=== PATIENT | female | born 1950 | race Hispanic/Latino ===

== ENCOUNTER 2016-06-03 21:29 | Inpatient (IN) | payer MEDICARE, BC ==
[2016-06-03 21:30] VITALS: BMI 18.2
[2016-06-03] MEDS ORDERED: Albuterol-Ipratrop 3 mg / 0.5 (3 ml) UD INH STA (22:09)
[2016-06-03 22:55] LABS: BASO % 0.1 % (0.0-2.0); HEMATOCRIT 36.3 % (34.0-47.0); LYMPH # 0.3 K/uL (1.0-4.3); LYMPH % 2.9 % (20.0-40.0); MEAN CELL VOLUME 67.1 fl (81.0-99.0); MEAN CORPUSCULAR HEMOGLOBIN 19.2 pg (27.0-31.0); MEAN CORPUSCULAR HGB CONC 28.6 g/dL (33.0-37.0); MEAN PLATELET VOLUME 8.4 fl (7.2-11.7); MONO # 0.6 K/uL (0.0-0.8); MONO % 5.8 % (0.0-10.0); NEUT # 9.7 K/uL (1.8-7.0); NEUT % 91.2 % (50.0-75.0); NRBC % 0.1 % (0.0-0.0); PLATELET COUNT 305 K/uL (130-400); RED CELL DISTRIBUTION WIDTH 23.4 % (11.5-14.5); WHITE BLOOD COUNT 10.6 K/uL (4.8-10.8)
[2016-06-03 23:01] LABS: MAGNESIUM 1.9 MG/DL (1.6-2.3)
[2016-06-03 23:02] LABS: ALKALINE PHOSPHATASE 132 U/L (38-126); ALT/SGPT 24 U/L (9-52); AST/SGOT 18 U/L (14-36); BILIRUBIN,TOTAL 0.7 mg/dl (0.2-1.3); BLOOD UREA NITROGEN 10 mg/dl (7-17); CALCIUM 7.7 mg/dL (8.4-10.2); CARBON DIOXIDE 34 mmol/L (22-30); CHLORIDE 84 mmol/L (98-107); GFR AFRICAN-AMERICAN > 60; GLUCOSE,RANDOM 99 mg/dL (65-105); LIPASE 53 U/L (23-300); POTASSIUM 2.9 MMOL/L (3.6-5.0); SODIUM 130 mmol/l (132-148); TOTAL PROTEIN 5.4 G/DL (6.3-8.2)
[2016-06-03 23:03] LABS: PARTIAL THROMBOPLASTIN TIME 27.5 SECONDS (23.3-32.5)
[2016-06-03 23:19] LABS: NEUTROPHIL 89 % (42-75); TOTAL CELLS COUNTED 100
[2016-06-03 23:32] LABS: THYROID STIMULATING HORMONE 24.4 mIU/ML (0.46-4.68)
--- NOTE | 2016-06-03 23:50 | ED PDOC ---
HPI: General Adult Time Seen by Provider: 06/03/16 21:47 Chief Complaint (Nursing): Weakness/Neurological Deficit Chief Complaint (Provider): Leg swelling History Per: Patient History/Exam Limitations: no limitations Onset/Duration Of Symptoms: Persistent Current Symptoms Are (Timing): Still Present Severity: Moderate Additional Complaint(s): Michelle Hanson is a 66 y/o female presenting to the ER on 06/03/2016 with complaints of bilateral leg swelling x1 week. Patient notes she has had no similar episodes in the past. She reports associated symptoms including abdominal fullness, chronic coughing (secondary to COPD), slight episodes of SOB , nausea, and two episodes of diarrhea. However, she denies any chest pain, palpitations, headache, dizziness, or fevers. Of note, the patient notes she has been having a tooth/gum abscess x1 month and is currently following up with her doctors for surgical repair. She is currently taking ciprofloxacin for prophylactic treatment. Patient also has a past medical history of breast cancer x2, and has been on chemotherapy and radiation 8 years ago. Additionally, she has had bone metastasis with a shoulder and humorous resection. Patient has not relapsed into remission since. Collections Curator/PMD- Drocas Costello Past Medical History Reviewed: Historical Data, Nursing Documentation, Vital Signs Vital Signs: Last Vital Signs Temp 99.1 F 06/03/16 21:32 Pulse 123 H 06/03/16 23:58 Resp 18 06/03/16 23:58 BP 120/70 06/04/16 00:30 Pulse Ox 99 06/04/16 01:25 - Medical History PMH: Asthma, COPD, Fractures, Gall Bladder Disease, HTN, Hyperthyroidism, Hypothyroidism, Malignancy (breast CA), Pneumonia Denies: HIV, Chronic Kidney Disease - Surgical History Other surgeries: heart catheterization x1 year secondary to angina symptoms. Catheter results tested negative. - Family History Family History: States: Unknown Family Hx - Home Medications Home Medications: Ambulatory Orders Medication Instructions Recorded Anastrozole [Arimidex 1 mg Tab] 1 mg PO DAILY #0 tab 05/07/15 Gabapentin [Neurontin] 600 mg PO TID #0 tab 05/07/15 Tiotropium [Spiriva] 18 mcg IH DAILY #0 cap 05/07/15 Verapamil [Calan Tab] 80 mg PO TID #0 tab 05/07/15 Acetaminophen/Butalbital/Caf 1 tab PO Q8H PRN 06/26/15 [Fioricet] Albuterol Sulfate [Proair Hfa] 2 puff IH Q4H PRN 06/26/15 Albuterol/Ipratropium [Duoneb 3 3 ml IH TID PRN 06/26/15 mg/0.5 mg (3 ml) UD] Diclofenac Sodium [Voltaren] 1 appl TOP BID PRN 06/26/15 DiphenhydrAMINE [Benadryl] 50 mg PO HS 06/26/15 Fluticasone/Vilanterol [Breo 1 puff IH DAILY 06/26/15 Ellipta 200-25 Mcg INH] Multivitamin/Iron/Folic Acid 1 tab PO DAILY 06/26/15 [Centrum Complete Multivit Tab] Omeprazole [Omeprazole] 40 mg PO DAILY 06/26/15 Oxycodone HCl/Acetaminophen 1 tab PO Q6H PRN 06/26/15 [Percocet 10-325 mg Tablet] Theophylline [Maximiliano-Dur] 200 mg PO Q12H 06/26/15 predniSONE [predniSONE Tab] 5 mg PO TID 06/26/15 Aspirin [Adult Low Dose Aspirin EC] 81 mg PO DAILY #0 tablet. 07/08/15 Metoprolol Succinate XL [Toprol XL] 25 mg PO DAILY #0 tab 07/08/15 Nitroglycerin [Nitrolingual] 0.4 mg SL Q4 #0 ml 07/08/15 Cephalexin [cephalexin] 500 mg PO Q6 #28 cap 12/30/15 - Allergies Allergies/Adverse Reactions: Allergies Allergy/AdvReac Type Severity Reaction Status Date / Time paper tape Allergy RASH Uncoded 06/03/16 21:31 Physical Exam - Reviewed Nursing Documentation Reviewed: Yes Vital Signs Reviewed: Yes - Physical Exam Head Exam: Positive for: NORMAL INSPECTION (minimal swelling to right side of the face with no overlying erythema and no tenderness; pt can open and close her jaw normally ) Skin: Positive for: Normal Color, Warm ENT: Positive for: TM Is/Are (normal ), Other (swelling to the right face- chronic due to gum/tooth abscess- no tenderness or drainage, no overlying erythema or warmth ). Negative for: Pharyngeal Erythema, Tonsillar Swelling Neck: Positive for: Normal, Painless ROM Cardiovascular/Chest: Positive for: Regular Rate, Rhythm Respiratory: Positive for: Decreased Breath Sounds ((+) bases on both lungs ), Rales (questionable ), Wheezing (slight wheezing) Pulses-Dorsalis Pedis (L): 2+ Pulses-Dorsalis Pedis (R): 2+ Gastrointestinal/Abdominal: Positive for: Tenderness ((+) minimal epigastric tenderness ) Extremity: Positive for: Pedal Edema (1+ to 2+ pitting edema from feet to knees ; slight tenderness with deep palpation), Other (severe scabs on lower legs bilaterally (patient quotes 'everytime she hits something she gets a scab')). Negative for: Calf Tenderness - Laboratory Results Result Diagrams: 06/03/16 22:10 06/03/16 22:39 - ECG O2 Sat by Pulse Oximetry: 99 (RA) Pulse Ox Interpretation: Normal Medical Decision Making Medical Decision Makin:02 Initial Impression- 66 y/o female with complaints of bilateral leg swelling. R/ o CHF, R/o DVT Initial Plan- * EKG * CXR * Albuterol 3 ml INH * Urine Cx * Urinalysis * US Lower Extremity * Re-assess Pt is negative for DVT risk factors. Additional Orders: * urinary catheter * lasix 20 mg IVP * potassium chloride 40 meq PO * potassium Documented by Mauri Roman, acting as a scribe for Denzel Granado PA-C All medical record entries made by the Scribe were at my direction and personally dictated by me. I have reviewed the chart and agree that the record accurately reflects my personal performance of the history, physical exam, medical decision making, and the department course for this patient. I have also personally directed, reviewed, and agree with the discharge instructions and disposition. Labs with 2.9 K+. 10meq IV and 40 PO potassium ordered BNP 3200. lasix added, kimble ordered CXR: no pleural effusion, possible mild congestion TSH high 24 mild tachy on monitor at 112- could be secondary to duoneb. SaO2 98% ra. will continue to monitor US: IMPRESSION: No evidence for deep venous thrombosis in the visualized veins. discussed with patient in full detail. understands lab finding. Case discussed with Dr. Josefa Pimentel accepts patient to service and will be down for evaluation and orders. Disposition - Clinical Impression Clinical Impression: Hypokalemia, CHF (congestive heart failure) - Patient ED Disposition Is Patient to be Admitted: Yes Counseled Patient/Family Regarding: Studies Performed, Diagnosis - Disposition Disposition Time: 01:23 Condition: STABLE
--- NOTE | 2016-06-03 23:52 | US ---
EXAM: US Duplex Bilateral Lower Extremity Veins. CLINICAL HISTORY: 66 years old, female; Signs and symptoms; Swelling of limb; Lower extremity, bilateral; TECHNIQUE: Real-time ultrasound scan of the veins of the bilateral lower extremities with color Doppler flow, spectral waveform analysis and compression. COMPARISON: No relevant prior studies available. FINDINGS: Real-time imaging shows veins with normal compressibility. Doppler evaluation shows normal venous flow with respiratory variation and augmentation with distal compression. IMPRESSION: No evidence for deep venous thrombosis in the visualized veins.
[2016-06-04] MEDS ORDERED: Potassium Chloride 20 mEq ER Tab PO ONE ×3 (00:07→11:43)
[2016-06-04] MEDS ORDERED: Potassium CL 10mEq/100ml 100 ML IVPB ONE (00:07)
[2016-06-04] MEDS ORDERED: Potassium Chloride 10 mEq 100 ML IVPB ONE (00:09)
--- NOTE | 2016-06-04 00:38 | CP.PCM.HP ---
History of Present Illness - History of Present Illness History of Present Illness: CC: Shortness of Breath HPI: 66 y/o female PMH COPD, bilateral breast CA s/p chemo/rad 8 years ago with bone mets to shoulder (s/p humerus resection), HTN, hyperthyroidism presents today with a 2 week history of worsening bilateral lower extremity swelling and weakness. She has had a rapid decline in mobility according to the daughter. Over the past 2 weeks she is no longer able to get herself up to her walker, she is unable to get up from the toilet unassisted, and is ambulating with increasing difficulty. Pt has mild dyspnea at baseline. She has had no similar episodes in the past. She denies any chest pain, palpitations, headache, dizziness, or fevers. In the ER, BNP was elevated 3230, K was low at 2.9 and was repleted, Na mildly low 130. +kimble catheter. CXR pending. Troponin neg. The patient also notes she has an oral abscess x1 month and is currently following up with her doctors for surgical repair. She is currently taking ciprofloxacin for prophylactic treatment. LAST ECHO 06/2015 : MODERATE MR, NORMAL EF [employer]/PMD- Dorcas Luu / Dr. Benz ROS: per HPI all other systems reviewed and negative by me PMH: COPD, breast CA, HTN, hyperthyroidism PSH: bilateral mastectomies, total shoulder replacement + removal, cervical and lumbar spinal surgery, cholecystectomy, tubal ligation FH: extensive history of cancer in her immediate family including ovarion, colon , breast, pancreatic and lung cancer SH: Tobacco: half a pack of cigarettes per day x 40 years . EtOH: denies use. Drugs: denies use Medications: see med rec Allergies: NKDA Surrogate Decision Maker: Information in chart Present on Admission - Present on Admission Any Indicators Present on Admission: No Past Patient History - Infectious Disease Hx of Infectious Diseases: MRSA - Tetanus Immunizations Tetanus Immunization: Unknown - Past Medical History & Family History Past Medical History?: Yes - Past Social History Smoking Status: Heavy Smoker > 10 Cigarettes Daily - CARDIAC Hx Hypertension: Yes - PULMONARY Hx Asthma: Yes Hx Chronic Obstructive Pulmonary Disease (COPD): Yes Hx Pneumonia: Yes - NEUROLOGICAL Hx Neurological Disorder: Yes Other/Comment: Peripheral neuropathy RLE - HEENT Hx HEENT Problems: No - RENAL Hx Chronic Kidney Disease: No - ENDOCRINE/METABOLIC Hx Hyperthyroidism: Yes Hx Hypothyroidism: Yes - HEMATOLOGICAL/ONCOLOGICAL Hx Human Immunodeficiency Virus (HIV): No - INTEGUMENTARY Hx Dermatological Problems: No - MUSCULOSKELETAL/RHEUMATOLOGICAL Hx Fractures: Yes - GASTROINTESTINAL Hx Gall Bladder Disease: Yes - GENITOURINARY/GYNECOLOGICAL Hx Genitourinary Disorders: No - PSYCHIATRIC Hx Psychophysiologic Disorder: No Hx Substance Use: No - SURGICAL HISTORY Hx Surgeries: Yes Hx Mastectomy: Yes (right in 1998; left in 2008) Hx Orthopedic Surgery: Yes (2003 rigtht shoulder prosthesis, removal of hardware 2013) Hx Tubal Ligation: Yes Other/Comment: shoulder and humerous replacement with joint space infection and eventual removal of hardware in right shoulder and chronic lymphedema of RUE, groin cyst removal, cervical spinal fusion 2007, lumbar spinal fusion 2007. - ANESTHESIA Hx Anesthesia: Yes Hx Anesthesia Reactions: No Hx Malignant Hyperthermia: No Meds Allergies/Adverse Reactions: Allergies Allergy/AdvReac Type Severity Reaction Status Date / Time paper tape Allergy RASH Uncoded 06/03/16 21:31 Physical Exam - Constitutional Appears: Non-toxic, No Acute Distress - Head Exam Head Exam: ATRAUMATIC, NORMOCEPHALIC - Eye Exam Eye Exam: EOMI, Normal appearance, PERRL Pupil Exam: NORMAL ACCOMODATION, PERRL - ENT Exam ENT Exam: Mucous Membranes Moist, Normal Exam - Neck Exam Neck exam: Positive for: Normal Inspection. Negative for: Lymphadenopathy - Respiratory Exam Respiratory Exam: Decreased Breath Sounds, Rales, NORMAL BREATHING PATTERN. absent: Rhonchi, Wheezes - Cardiovascular Exam Cardiovascular Exam: RRR, +S1, +S2 - GI/Abdominal Exam GI & Abdominal Exam: Normal Bowel Sounds, Soft. absent: Mass, Organomegaly - Extremities Exam Extremities exam: Positive for: normal capillary refill. Negative for: calf tenderness - Back Exam Back exam: absent: CVA tenderness (L), CVA tenderness (R) - Neurological Exam Neurological exam: Alert, Reflexes Normal - Psychiatric Exam Psychiatric exam: Normal Affect, Normal Mood - Skin Skin Exam: Dry, Warm Results - Vital Signs Recent Vital Signs: Last Vital Signs Temp 99.1 F 06/03/16 21:32 Pulse 123 H 06/03/16 23:58 Resp 18 06/03/16 23:58 BP 124/71 06/03/16 23:58 Pulse Ox 99 06/04/16 00:05 - Labs Result Diagrams: 06/03/16 22:10 01/26/17 22:39 Labs: Laboratory Results - last 24 hr 06/03/16 06/03/16 06/03/16 22:10 22:33 22:39 WBC 10.6 RBC 5.42 H Hgb 10.4 L Hct 36.3 MCV 67.1 L D MCH 19.2 L MCHC 28.6 L RDW 23.4 H Plt Count 305 MPV 8.4 Neut % (Auto) 91.2 H Lymph % (Auto) 2.9 L [place] % (Auto) 5.8 Eos % (Auto) 0.0 Baso % (Auto) 0.1 Neut # 9.7 H Lymph # 0.3 L [place] # 0.6 Eos # 0.0 Baso # 0.0 Neutrophils % (Manual) 89 H Band Neutrophils % 2 Lymphocytes % (Manual) 3 L Monocytes % (Manual) 6 Platelet Estimate Normal Hypochromasia (manual) Moderate Poikilocytosis (manual Slight Anisocytosis (manual) Moderate Macrocytosis (manual) Moderate PT 11.0 INR 1.06 APTT 27.5 Sodium 130 L Potassium 2.9 L Chloride 84 L Carbon Dioxide 34 H Anion Gap 15 BUN 10 Creatinine 0.5 L Est GFR ( Amer) > 60 Est GFR (Non-Af Amer) > 60 Random Glucose 99 Calcium 7.7 L Magnesium Total Bilirubin 0.7 AST 18 ALT 24 Alkaline Phosphatase 132 H D Troponin I 0.0170 NT-Pro-B Natriuret Pep 3230 H Total Protein 5.4 L Albumin 2.7 L Globulin 2.7 Albumin/Globulin Ratio 1.0 Lipase 53 TSH 3rd Generation 06/03/16 22:44 WBC RBC Hgb Hct MCV MCH MCHC RDW Plt Count MPV Neut % (Auto) Lymph % (Auto) [place] % (Auto) Eos % (Auto) Baso % (Auto) Neut # Lymph # [place] # Eos # Baso # Neutrophils % (Manual) Band Neutrophils % Lymphocytes % (Manual) Monocytes % (Manual) Platelet Estimate Hypochromasia (manual) Poikilocytosis (manual Anisocytosis (manual) Macrocytosis (manual) PT INR APTT Sodium Potassium Chloride Carbon Dioxide Anion Gap BUN Creatinine Est GFR ( Amer) Est GFR (Non-Af Amer) Random Glucose Calcium Magnesium 1.9 Total Bilirubin AST ALT Alkaline Phosphatase Troponin I NT-Pro-B Natriuret Pep Total Protein Albumin Globulin Albumin/Globulin Ratio Lipase TSH 3rd Generation 24.40 H Assessment & Plan - Assessment and Plan (Free Text) Plan: 66 y/o female PMH COPD, bilateral breast CA s/p chemo/rad 8 years ago with bone mets to shoulder (s/p humerus resection), HTN, hyperthyroidism presents today with a 1 week history of bilateral lower extremity swelling. Pt has mild dyspnea at baseline. She has had no similar episodes in the past. Bilateral LE edema and weakness given lasix 40 mg ivp in ER +Kimble cath last echo 06/2015 NORMAL EF, +MR cont lasix 40 mg IV q12 CXR pending PT eval and treat Hypokalemia acute K 2.9 in ER given 50 meq KCl in ER will repeat in AM COPD chronic stable cont Duonebs, throphylline cont prednisone 5mg po daily Hx breast ca, bilateral stable continue arimidex Hypertension cont metoprolol succ 12.5 mg po daily and verapamil 80 mg PO TID stable Oral Abscess? confirming antibiotics in AM has been following up as an outpatient Hyperthyroidism DVT ppx lovenox
[2016-06-04 01:08] LABS: RBC URINE 2 /hpf (0-3); URINE BILIRUBIN NEGATIVE (NEGATIVE); URINE BLOOD NEGATIVE (NEGATIVE); URINE COLOR YELLOW (YELLOW); URINE GLUCOSE (UA) NEG (Normal); URINE KETONE 20 mg/dL (NEGATIVE); URINE LEUKOCYTE ESTERASE NEG Leu/uL (Negative); URINE PROTEIN NEGATIVE (NEGATIVE); URINE UROBILINOGEN 0.2-1.0 mg/dL (0.2-1.0); WBC URINE 2 /hpf (0-5)
[2016-06-04] MEDS ORDERED: Albuterol-Ipratrop 3 mg / 0.5 (3 ml) UD IH PRN (01:20)
[2016-06-04] MEDS ORDERED: Patient's Own Med (Diclofenac Sodium [Voltaren] 1 APPL) TOP PRN (01:20)
[2016-06-04] MEDS ORDERED: Apap-Butalbital-Caffeine 325-50-40mg Tab PO PRN (01:20)
[2016-06-04] MEDS ORDERED: THEOPHYLLINE 200 MG PO SCH (01:30)
[2016-06-04] MEDS: Theophylline 200mg ER 24 hrs Cap PO SCH ×3 (01:55→22:02)
[2016-06-04 08:18] LABS: HEMATOCRIT 33.4 % (34.0-47.0); MEAN CELL VOLUME 66.2 fl (81.0-99.0); MEAN CORPUSCULAR HEMOGLOBIN 19.2 pg (27.0-31.0); MEAN CORPUSCULAR HGB CONC 29.1 g/dL (33.0-37.0); RED CELL DISTRIBUTION WIDTH 22.8 % (11.5-14.5); WHITE BLOOD COUNT 10.2 K/uL (4.8-10.8)
--- NOTE | 2016-06-04 08:25 | RAD ---
HISTORY: irregular breath sounds COMPARISON: Comparison is made to 07/02/2015 TECHNIQUE: Chest PA and lateral FINDINGS: LUNGS: No evidence of new infiltrate or consolidation in the lungs. Prominent lung markings and reticular opacity seen overlying the lower lobes slightly more conspicuous on the right. PLEURA: No significant pleural effusion identified. No pneumothorax apparent. CARDIOVASCULAR: Normal. OSSEOUS STRUCTURES: Surgical changes and resection of the proximal right humerus are again seen. Heterogeneous sclerotic changes in the right humeral shaft. Postsurgical changes suggestive of prior rotator cuff tear repair on the left shoulder. Internal fixation at the lower cervical spine are also seen. VISUALIZED UPPER ABDOMEN: Normal. OTHER FINDINGS: None. IMPRESSION: No evidence of significant interval change in the lungs since the previous exam as described above. Hyperinflation of the lungs. Correlate for COPD.
[2016-06-04 08:39] LABS: BLOOD UREA NITROGEN 8 mg/dl (7-17); CALCIUM 7.3 mg/dL (8.4-10.2); CARBON DIOXIDE 36 mmol/L (22-30); CHLORIDE 86 mmol/L (98-107); GFR AFRICAN-AMERICAN > 60; GLUCOSE,RANDOM 135 mg/dL (65-105); POTASSIUM 3.2 MMOL/L (3.6-5.0); SODIUM 127 mmol/l (132-148)
[2016-06-04] MEDS ORDERED: Patient's Own Med (Multivitamin/Iron/Folic Acid [Centrum Complete Multivit Tab] 1 TAB) PO SCH (09:00)
[2016-06-04] MEDS ORDERED: Patient's Own Med (Fluticasone/Vilanterol [Breo Ellipta 200-25 Mcg Inh] 1 PUFF) IH SCH (09:00)
--- NOTE | 2016-06-04 10:28 | CARD ---
APPROVED REPORT EKG Measurement Heart [id number] <Conclusion> Sinus tachycardia with premature atrial complexes Biatrial enlargement Left ventricular hypertrophy with repolarization abnormality Abnormal ECG
[2016-06-04] MEDS: Pantoprazole 40 mg EC Tab PO SCH (10:34)
[2016-06-04] MEDS: Multivitamin With Minerals Tab PO SCH (10:34)
[2016-06-04] MEDS: Enoxaparin 40 mg Syringe SC SCH (10:44)
[2016-06-04] MEDS: Metoprolol Succinate 25 mg XL Tab PO SCH (10:46)
[2016-06-04] MEDS: Fluticasone-Salmeterol 250-50mcg Diskus IH SCH ×2 (10:47→22:01)
[2016-06-04] MEDS ORDERED: Magnesium Oxide 400 mg Tab UD PO ONE (11:48)
[2016-06-04] MEDS: Clindamycin 300 MG in Sodium Chloride 0.9% 100 ML IVPB SCH ×2 (13:18→17:37)
--- NOTE | 2016-06-04 15:03 | CP.PCM.CON ---
History of Present Illness - History of Present Illness History of Present Illness: This 66-year-old female presented to the emergency department with the chief complaint of shortness of breath and productive cough. She has also noted increasing swelling and weakness of both lower extremities over a two-week period. She has developed profound weakness of the lower fremitus and has been unable to raise herself from a seated position. She has become progressively more short of breath during this period of time. She is unaware of any fever or chills and denies any chest pain. Has been no hemoptysis. She has been followed by a dentist and an oral surgeon because of an abscess which has developed in the right cheek and possibly involving the jaw. She was taking ciprofloxacin as an outpatient because of this. Past medical history includes chronic pulmonary disease, bronchial asthma, thyrotoxicosis on suppressant medication, breast carcinoma bilaterally, metastatic disease to the right humerus, cervical disc disease as well as lumbar disc disease, peripheral neuropathy right lower extremity, hiatus hernia. Past surgical history includes bilateral mastectomies as well as right shoulder arthroplasty and subsequent removal of the humeral prosthesis because of infection. Lumbar spinal fusion as well as cervical fusion 2007. Social history current light cigarette smoker. Social alcohol only. No illicit drug use. Family history: Breast cancer, ovarian cancer, pancreatic cancer, lung cancer, colon cancer, hypertension. Past Patient History - Infectious Disease Hx of Infectious Diseases: MRSA - Tetanus Immunizations Tetanus Immunization: Unknown - Past Medical History & Family History Past Medical History?: Yes - Past Social History Smoking Status: Current Some Days Smoker Chewing Tobacco Use: No Cigar Use: No Alcohol: Social Drugs: Denies - CARDIAC Hx Cardiac Disorders: Yes Hx Hypertension: Yes - PULMONARY Hx Respiratory Disorders: Yes Hx Asthma: Yes Hx Chronic Obstructive Pulmonary Disease (COPD): Yes Hx Pneumonia: Yes - NEUROLOGICAL Hx Neurological Disorder: Yes Other/Comment: peripheral neuropathy right lower extremity. - HEENT Hx HEENT Problems: Yes Other/Comment: recent right buccal abscess with possible involvement of the mandible - RENAL Hx Chronic Kidney Disease: No - ENDOCRINE/METABOLIC Hx Endocrine Disorders: Yes Hx Hyperthyroidism: Yes (on methimazole) - HEMATOLOGICAL/ONCOLOGICAL Hx Blood Disorders: Yes Hx Bruising: Yes Hx Human Immunodeficiency Virus (HIV): No - INTEGUMENTARY Hx Dermatological Problems: No - MUSCULOSKELETAL/RHEUMATOLOGICAL Hx Musculoskeletal Disorders: Yes (Multiple fractures) Hx Falls: Yes Hx Osteoporosis: Yes - GASTROINTESTINAL Hx Gastrointestinal Disorders: Yes Hx Gall Bladder Disease: Yes - GENITOURINARY/GYNECOLOGICAL Hx Genitourinary Disorders: No - PSYCHIATRIC Hx Psychophysiologic Disorder: No Hx Substance Use: No - SURGICAL HISTORY Hx Surgeries: Yes Hx Mastectomy: Yes (right in 1998; left in 2008) Hx Orthopedic Surgery: Yes (2003 rigtht shoulder prosthesis, removal of hardware 2013) Hx Tubal Ligation: Yes Other/Comment: shoulder and humerous replacement with joint space infection and eventual removal of hardware in right shoulder and chronic lymphedema of RUE, groin cyst removal, cervical spinal fusion 2007, lumbar spinal fusion 2007. - ANESTHESIA Hx Anesthesia: Yes Hx Anesthesia Reactions: No Hx Malignant Hyperthermia: No Meds Allergies/Adverse Reactions: Allergies Allergy/AdvReac Type Severity Reaction Status Date / Time paper tape Allergy RASH Uncoded 06/03/16 21:31 - Medications Medications: Current Medications Acetaminophen/Butalbital/Caffeine (Fioricet) 1 tab PO Q8H PRN PRN Reason: Headache Albuterol/Ipratropium (Duoneb 3 Mg/0.5 Mg (3 Ml) Ud) 3 ml IH TID PRN PRN Reason: Shortness of Breath Anastrozole (Arimidex 1 Mg Tab) 1 mg PO DAILY [facility] Last Admin: 06/04/16 10:48 Dose: 1 mg Aspirin (Ecotrin) 81 mg PO DAILY [facility] Last Admin: 06/04/16 10:35 Dose: 81 mg Baclofen (Lioresal) 10 mg PO HS [facility] Ciprofloxacin (Cipro) 500 mg PO Q12 [facility] Last Admin: 06/04/16 10:32 Dose: 500 mg Enoxaparin Sodium (Lovenox) 40 mg SC DAILY [facility] PRN Reason: Protocol Last Admin: 06/04/16 10:44 Dose: 40 mg Gabapentin (Neurontin) 600 mg PO TID [facility] Last Admin: 06/04/16 10:35 Dose: 600 mg Home Med (Diclofenac Sodium [Voltaren]) 1 appl TOP BID PRN PRN Reason: Pain, Mild (1-3) Clindamycin Phosphate 300 mg/ (Sodium Chloride) 102 mls @ 102 mls/hr IVPB Q8 [facility] Last Admin: 06/04/16 13:18 Dose: 102 mls/hr Lactobacillus Acidophilus (Bacid Acidophilus) 1 cap PO BID [facility] Metoprolol Succinate (Toprol Xl) 25 mg PO DAILY [facility] Last Admin: 06/04/16 10:46 Dose: 25 mg Multivitamins/Minerals (Therapeutic-M Tab) 1 tab PO DAILY [facility] Last Admin: 06/04/16 10:34 Dose: 1 tab Pantoprazole Sodium (Protonix Ec Tab) 40 mg PO DAILY [facility] Last Admin: 06/04/16 10:34 Dose: 40 mg Prednisone (Prednisone Tab) 5 mg PO TID [facility] Last Admin: 06/04/16 13:26 Dose: 5 mg Fluticasone/Salmeterol (Advair Diskus 250/50) 1 puff IH Q12 [facility] Last Admin: 06/04/16 10:47 Dose: 1 puff Theophylline (Maximiliano-24) 200 mg PO Q12 [facility] Last Admin: 06/04/16 10:33 Dose: 200 mg Verapamil HCl (Calan Tab) 80 mg PO TID [facility] Last Admin: 06/04/16 13:20 Dose: 80 mg Physical Exam - Additional Findings Additional findings: Chronically ill-appearing, debilitated female who claims to feel much improved from the day prior. Significant swelling with erythema and tenderness over the right buccal area extending to the periorbital region. Oropharynx is hyperemic and purulent secretions are noted to be emanating from a punctum on the right cheek. Neck is supple and trachea is midline. Unable to appreciate cervical adenopathy. Postsurgical changes of the anterior thorax are noted with bilateral mastectomies. Hyperresonance is noted bilaterally on percussion with both hemidiaphragms displaced caudally. Breath sounds are significantly diminished bilaterally. Scattered sonorous rhonchi are heard in the lower lobes of both lungs. Expiratory phases prolonged with some faint expiratory wheezes noted. No bronchial breathing or egophony. Heart sounds are slightly distant and the rhythm is regular. Mildly tachycardic. Abdomen is soft and nontender with normal bowel sounds. 1-2+ dependent edema both lower extremities is noted without cyanosis or ecchymosis. No calf tenderness. Results - Vital Signs Recent Vital Signs: Last Vital Signs Temp 97.9 F 06/04/16 12:51 Pulse 120 H 06/04/16 13:20 Resp 18 06/04/16 12:51 BP 107/64 06/04/16 13:20 Pulse Ox 94 L 06/04/16 12:51 - Labs Result Diagrams: 06/05/16 05:30 06/05/16 05:30 Assessment & Plan (1) Acute bronchitis with chronic obstructive pulmonary disease (COPD) Status: Acute Priority: High (2) Hyperthyroidism Status: Chronic Priority: High (3) Abscess Status: Acute Priority: High - Assessment and Plan (Free Text) Plan: Infectious disease has been contacted regarding treatment of severe buccal abscess and question of the mandible. Aerosol therapy and chest physiotherapy for acute separative bronchitis/ exacerbation of COPD. Evaluation of cardiac status for congestive cardiac failure and/or pulmonary hypertension. Endocrinology has been contacted regarding her hyperthyroidism. - Date & Time Date: 06/04/16 Time: 14:49
--- NOTE | 2016-06-04 15:14 | CON ---
DATE: 06/04/2016 ROOM: 404 HISTORY OF PRESENT ILLNESS: This is a 66-year-old female with known history of metastatic breast car cinoma presenting here with generalized body weakness and worsening lower extremity edema and impaire d ambulation and is now being referred also for endocrine evaluation because of abnormal thyroid func tion studies. PAST MEDICAL HISTORY: She also has been followed closely for significant history of hyperthyroidism related to Graves' disease and has been on a tapering dose of Tapazole given as 10 mg once daily at t his time since her last TSH was extremely suppressed at 0.007 with a total T4 of over 10 mcg/dL. His tory of hypertensive cardiovascular disease and dyslipidemia, history of chronic obstructive lung dis ease, history of breast carcinoma and underwent bilateral mastectomy with chemotherapy and radiation undertaken postoperatively. She has apparent bone mets to the shoulder and had a humerus resection u ndertaken. Had prior severe cervical and lumbar disk disease and osteoarthritis and underwent surgic al procedures for the aforementioned. History of prior cholecystectomy for underlying cholelithiasis . FAMILY HISTORY: Extensive history for cancer in both maternal and paternal sides of the family as no chantel, i.e., colon and breast cancer, pancreatic cancer and also lung cancer and even ovarian cancer. SOCIAL HISTORY: The patient has supportive family. Her daughter is very attentive and supportive of her needs. She smokes half a pack a day for the last 40 years. REVIEW OF SYSTEMS: As mentioned above, admits to generalized body weakness with episodic dizziness a nd lightheadedness, worse on the day of admission. Also, admits to easy fatigability and tiredness w ith suboptimal energy level. No chest pains or palpitations, but admits to progressive shortness of breath initially on exertion and then at rest. Her oral intake has been variable and suboptimal with episodic nausea, dyspepsia, and vague upper abdominal pain. Also, admits to habitual constipation. PHYSICAL EXAMINATION: GENERAL: This is asthenic and ill-nourished female in no apparent distress. VITAL SIGNS: Blood pressure of 140/80, pulse of 78 beats per minute and regular, temperature 99, res pirations 20. Height is 5 foot 2 inches, weight is 106 pounds. HEENT: Head normocephalic. Eyes anicteric with pink conjunctivae. Fundoscopy not possible at this time. Ears, nose and throat otherwise normal. NECK: Supple. Thyroid gland is normal size. No carotid bruits. No cervical adenopathy. CARDIOPULMONARY: There is an adynamic precordium. S1, S2 is rapid and regular. LUNGS: Show scattered rhonchi. ABDOMEN: Flat, soft with positive bowel sounds. EXTREMITIES: There is +2 bipedal edema. Pulses are +2 bilaterally. LABORATORY DATA: Hematology: Hemoglobin of 10.4, hematocrit of 36, WBCs 10.6, MCV 67 and platelets 305. Her chemistries showed a BUN of 10, sodium 130, potassium 2.9, chloride 84, CO2 34, glucose 99, and creatinine 0.5. Her alkaline phosphatase is 132. Her proBNP is 3230. The TSH is 24.40 with a free T4 of 0.14. ASSESSMENT: This is a 66-year-old female presenting here with congestive heart failure, clinically, historically and biochemically as noted. She also has overt hypothyroidism most likely related to t he intake of Tapazole for management of longstanding hyperthyroidism related to Graves' disease or au toimmune thyroiditis. PLAN OF MANAGEMENT: As discussed with the patient and the staff, will hold off the reinitiation of h er Tapazole medications and will do serial thyroid function studies and observe her biochemical and c linical response thereof. Will obtain a total and free T4 and TSH with a thyroid peroxidase antibody and thyroid stimulating immunoglobulin, which will confirm and/or indicate the presence of underlyin g autoimmunity. Serial chemistries will be obtained and will supplement the potassium accordingly as needed. Will follow and advise accordingly. Polly Vu MD cc: [id number] TT: 06/04/2016 15:14:18 Confirmation # [id number] Dictation # [id number] roberta
[2016-06-04] MEDS ORDERED: Sodium Chloride 0.9% 50 ML IV ONE (16:12)
[2016-06-04] MEDS ORDERED: Iohexol 300 100 ML IJ ONE (16:12)
[2016-06-04] MEDS: Lactobacillus Acidophilus 500 MU Cap PO SCH (17:05)
[2016-06-04] MEDS: Cefepime 1 GM in Sodium Chloride 0.9% 100 ML IVPB SCH (17:08)
--- NOTE | 2016-06-04 17:45 | CT ---
PROCEDURE: CT MAXILLOFACIAL BONES WITH CONTRAST HISTORY: facial/odontogenic abscess COMPARISON: None. TECHNIQUE: Contiguous axial CT images of the maxillofacial bones were obtained following administration of IV contrast. Coronal and sagittal reformats were generated. Intravenous contrast Dose: 80 mL of Omnipaque 300 Radiation dose: Total exam DLP = 817.55 mGy-cm. FINDINGS: NASAL BONES: No evidence of acute fracture ORBITS: Unremarkable. PARANASAL SINUSES/ MASTOIDS: Clear. MAXILLA: There is mucosal thickening and air-fluid level at the right maxillary sinus. MANDIBLE/ TEMPOROMANDIBULAR JOINTS: There is large enhancing wall fluid collection surrounding the mid and posterior aspect of the right mandible measures 5.4 centimeter in the largest transverse diameter 5.1 centimeter in the AP diameter and 6.2 centimeter in the longitudinal diameter. This collections likely represent abscess formation. There are inflammatory changes and stranding surrounding this collection. The collection is seen lateral to the right zygomatic arch also. SKULL BASE: Unremarkable. TEMPORAL BONES: Partial opacification of the right mastoid and left mastoid is noted. No evidence of otitis media. OTHER FINDINGS: Degenerative changes and anterior fusion at the mid cervical spine are noted. The upper airway is patent. IMPRESSION: Large enhancing wall collection seen around the mid and upper right mandibular ramus and mandibular neck extending anteriorly and seen medial and lateral to the right zygomatic arch as described above. This collection contains foci of air. The density and the appearance of this collection suggestive of abscess formation. The collection is seen anterior to the right parotid gland and extending medially to the posterior right oral cavity. [id number] right maxillary sinus mucosal thickening and small air-fluid level. Partial opacification of both mastoids suggestive of mastoiditis. The right thyroid lobe is not visualized in this study.
[2016-06-05] MEDS: Clindamycin 300 MG in Sodium Chloride 0.9% 100 ML IVPB SCH ×3 (00:43→16:12)
[2016-06-05] MEDS: Cefepime 1 GM in Sodium Chloride 0.9% 100 ML IVPB SCH ×3 (01:25→16:11)
[2016-06-05 06:44] LABS: HEMATOCRIT 32.5 % (34.0-47.0); MEAN CORPUSCULAR HEMOGLOBIN 19.2 pg (27.0-31.0); MEAN CORPUSCULAR HGB CONC 28.7 g/dL (33.0-37.0); MEAN PLATELET VOLUME 8.4 fl (7.2-11.7); PLATELET COUNT 286 K/uL (130-400); RED CELL DISTRIBUTION WIDTH 23.2 % (11.5-14.5); WHITE BLOOD COUNT 9.1 K/uL (4.8-10.8)
[2016-06-05 06:45] LABS: ALKALINE PHOSPHATASE 121 U/L (38-126); ALT/SGPT 20 U/L (9-52); AST/SGOT 14 U/L (14-36); BILIRUBIN,TOTAL 0.5 mg/dl (0.2-1.3); BLOOD UREA NITROGEN 10 mg/dl (7-17); CALCIUM 7.8 mg/dL (8.4-10.2); CARBON DIOXIDE 32 mmol/L (22-30); CHLORIDE 90 mmol/L (98-107); GFR AFRICAN-AMERICAN > 60; GLUCOSE,RANDOM 107 mg/dL (65-105); MAGNESIUM 1.7 MG/DL (1.6-2.3); POTASSIUM 4.9 MMOL/L (3.6-5.0); SODIUM 128 mmol/l (132-148); TOTAL PROTEIN 5.1 G/DL (6.3-8.2)
[2016-06-05 06:59] LABS: T4 0.921 ug/dl (5.5-11.0)
[2016-06-05 07:28] LABS: MEAN CELL VOLUME 66.8 fl (81.0-99.0)
[2016-06-05 07:30] LABS: NEUT % 90.5 % (50.0-75.0)
[2016-06-05 07:31] LABS: LYMPH % 2.2 % (20.0-40.0)
[2016-06-05 07:32] LABS: BASO % 0.3 % (0.0-2.0); NRBC % 0.3 % (0.0-0.0)
[2016-06-05 07:33] LABS: LYMPH # 0.2 K/uL (1.0-4.3); MONO # 0.6 K/uL (0.0-0.8); NEUT # 8.2 K/uL (1.8-7.0)
[2016-06-05 08:19] LABS: NEUTROPHIL 91 % (42-75); TOTAL CELLS COUNTED 100
[2016-06-05 08:20] LABS: ACANTHOCYTES SLIGHT; LARGE PLATELETS PRESENT
[2016-06-05] MEDS: Lactobacillus Acidophilus 500 MU Cap PO SCH ×2 (09:10→16:16)
[2016-06-05] MEDS: Multivitamin With Minerals Tab PO SCH (09:34)
[2016-06-05] MEDS: Fluticasone-Salmeterol 250-50mcg Diskus IH SCH ×2 (09:34→21:31)
[2016-06-05] MEDS: Theophylline 200mg ER 24 hrs Cap PO SCH ×2 (09:35→21:32)
[2016-06-05] MEDS: Pantoprazole 40 mg EC Tab PO SCH (09:35)
[2016-06-05] MEDS: Enoxaparin 40 mg Syringe SC SCH (09:36)
[2016-06-05] MEDS: Metoprolol Succinate 25 mg XL Tab PO SCH (09:37)
[2016-06-05] MEDS ORDERED: Levothyroxine 50 MCG TAB PO STA (10:39)
[2016-06-05 11:31] LABS: FREE T3 0.6 pg/mL (2.3-4.2)
--- NOTE | 2016-06-05 11:58 | CP.PCM.PN ---
Subjective - Date & Time of Evaluation Date of Evaluation: 06/05/16 Time of Evaluation: 17:48 - Subjective Subjective: pt comfortable today, no complaints dyspnea improved, bilateral LE edema also improved. no cp. no palpitations. vss nad Temp Pulse Resp BP Pulse Ox 97.7 F 100 H 20 95/60 L 95 06/05/16 16:32 06/05/16 16:32 06/05/16 16:32 06/05/16 16:32 06/05/16 16:32 Vitals reviewed GEN: WDWN, NAD HEENT: NCAT, PERRL, EOMI mild facial swelling CARDIO: RRR, +S1S2, RESP: CTAB, NO WRR ABD: SOFT, NT, ND BSx4 EXT: WARM WELL PERFUSED, edema improved, abrasions NEURO: AAOX3, b/l strength symmetrical INTEGUMENTARY: warm dry PSYCH: NORMAL MOOD, NORMAL AFFECT 06/05/16 05:30 06/05/16 05:30 Start Date/Time Active Medications 06/04/16 01:20 Acetaminophen/Butalbital/Caf [Fioricet] 1 tab PO Q8H PRN Albuterol/Ipratropium [Duoneb 3 mg/0.5 mg (3 ml) UD] 3 ml IH TID PRN Diclofenac Sodium [Voltaren] 1 appl TOP BID PRN 06/04/16 01:45 Theophylline Anhydrous [Maximiliano-24] 200 mg PO Q12 06/04/16 09:00 Anastrozole [Arimidex 1 mg Tab] 1 mg PO DAILY Aspirin [Ecotrin] 81 mg PO DAILY Enoxaparin [Lovenox] 40 mg SC DAILY Fluticasone/Salmeterol 250/50 [Advair Diskus 250/50] 1 puff IH Q12 Gabapentin [Neurontin] 600 mg PO TID Metoprolol Succinate [Toprol XL] 25 mg PO DAILY Multimineral/Multivitamin [Therapeutic-M Tab] 1 tab PO DAILY Pantoprazole [Protonix EC Tab] 40 mg PO DAILY Verapamil [Calan Tab] 80 mg PO TID predniSONE [predniSONE Tab] 5 mg PO TID 06/04/16 11:45 Clindamycin [Cleocin] 300 mg Sodium Chloride 0.9% 100 ml IVPB Q8 06/04/16 17:00 Cefepime [Maxipime] 1 gm Sodium Chloride 0.9% 100 ml IVPB Q8 Lactobacillus Acidophilus [Bacid Acidophilus] 1 cap PO BID 06/04/16 22:00 Baclofen [Lioresal] 10 mg PO HS 06/06/16 06:30 Levothyroxine [Synthroid] 50 mcg PO 0630 ASSESSMENT AND PLAN 66 y/o female PMH COPD, bilateral breast CA s/p chemo/rad 8 years ago with bone mets to shoulder (s/p humerus resection), HTN, hyperthyroidism presents today with a 1 week history of bilateral lower extremity swelling. Pt has mild dyspnea at baseline. She has had no similar episodes in the past. Bilateral LE edema and weakness, likely CHF with diastolic dysfx, preserved EF +fluid restriction 1200ml +Gutierrez cath last echo 06/2015 NORMAL EF, +MR +diastolic dysfunction cont lasix 40 mg IV q12 CXR pending PT eval and treat Hypokalemia acute, replete as necessary given lasix K 2.9 in ER given 50 meq KCl in ER will repeat in AM Hyponatremia continues to be low, pt on loops will monitor fluid restriction today COPD chronic stable cont Duonebs, throphylline cont prednisone 5mg po daily Dr. Benz consult appreciated and followed Hx breast ca, bilateral stable continue arimidex Hypertension cont metoprolol succ 12.5 mg po daily and verapamil 80 mg PO TID stable Maxillofacial abscess ID consult appreciated and followed continue clindamycin and cefepime Hyperthyroid, was hypo, d/c methimazole on synthroid LE abrasions Wound Care Foot pain Dorsum R Podiatry DVT ppx lovenox Objective - Vital Signs/Intake and Output Vital Signs (last 24 hours): Temp Pulse Resp BP Pulse Ox 97.4 F L 106 H 19 95/60 L 94 L 06/05/16 04:52 06/05/16 09:38 06/05/16 04:52 06/05/16 09:38 06/05/16 04:52 Intake and Output: 06/05/16 06/05/16 06:59 18:59 Intake Total 200 Output Total 200 Balance 0 - Medications Medications: Current Medications Acetaminophen/Butalbital/Caffeine (Fioricet) 1 tab PO Q8H PRN PRN Reason: Headache Albuterol/Ipratropium (Duoneb 3 Mg/0.5 Mg (3 Ml) Ud) 3 ml IH TID PRN PRN Reason: Shortness of Breath Last Admin: 06/04/16 17:56 Dose: 3 ml Anastrozole (Arimidex 1 Mg Tab) 1 mg PO DAILY [facility] Last Admin: 06/05/16 11:16 Dose: 1 mg Aspirin (Ecotrin) 81 mg PO DAILY [facility] Last Admin: 06/05/16 09:36 Dose: 81 mg Baclofen (Lioresal) 10 mg PO HS [facility] Last Admin: 06/04/16 22:02 Dose: 10 mg Enoxaparin Sodium (Lovenox) 40 mg SC DAILY [facility] PRN Reason: Protocol Last Admin: 06/05/16 09:36 Dose: 40 mg Gabapentin (Neurontin) 600 mg PO TID [facility] Last Admin: 06/05/16 09:35 Dose: 600 mg Home Med (Diclofenac Sodium [Voltaren]) 1 appl TOP BID PRN PRN Reason: Pain, Mild (1-3) Clindamycin Phosphate 300 mg/ (Sodium Chloride) 102 mls @ 102 mls/hr IVPB Q8 [facility] Last Admin: 06/05/16 09:00 Dose: 102 mls/hr Cefepime HCl 1 gm/ Sodium (Chloride) 100 mls @ 100 mls/hr IVPB Q8 [facility] Last Admin: 06/05/16 11:12 Dose: 100 mls/hr Lactobacillus Acidophilus (Bacid Acidophilus) 1 cap PO BID [facility] Last Admin: 06/05/16 09:10 Dose: 1 cap Levothyroxine Sodium (Synthroid) 50 mcg PO 0630 [facility] Metoprolol Succinate (Toprol Xl) 25 mg PO DAILY [facility] Last Admin: 06/05/16 09:37 Dose: Not Given Multivitamins/Minerals (Therapeutic-M Tab) 1 tab PO DAILY [facility] Last Admin: 06/05/16 09:34 Dose: 1 tab Pantoprazole Sodium (Protonix Ec Tab) 40 mg PO DAILY [facility] Last Admin: 06/05/16 09:35 Dose: 40 mg Prednisone (Prednisone Tab) 5 mg PO TID [facility] Last Admin: 06/05/16 09:35 Dose: 5 mg Fluticasone/Salmeterol (Advair Diskus 250/50) 1 puff IH Q12 [facility] Last Admin: 06/05/16 09:34 Dose: 1 puff Theophylline (Maximiliano-24) 200 mg PO Q12 [facility] Last Admin: 06/05/16 09:35 Dose: 200 mg Verapamil HCl (Calan Tab) 80 mg PO TID [facility] Last Admin: 06/05/16 09:38 Dose: Not Given - Labs Labs: 06/05/16 05:30 06/05/16 05:30 PT 11.0 SECONDS (9.6-11.2) 06/03/16 22:33 INR 1.06 (0.92-1.08) 06/03/16 22:33 APTT 27.5 SECONDS (23.3-32.5) 06/03/16 22:33
--- NOTE | 2016-06-05 13:57 | PN ---
DATE: 06/05/2016 ROOM: 404 SUBJECTIVE: This is a 66-year-old female presenting here with generalized body weakness and progress eda shortness of breath and evaluated to be in congestive heart failure and is being managed appropri ately thereof. She also has known history of hyperthyroidism and has been on Tapazole 10 mg once jozef ly for a few months prior to this admission. However, at this time, she was evaluated to have overt early hypothyroidism and so we have held off the initiation of her Tapazole medications accordingly. Her latest chemistries include a BUN of 10, sodium 128, potassium 4.9, chloride 90, CO2 32, glucose 107, creatinine 0.5. Her latest thyroid study showed a free T4 of 0.13, total T4 of 0.921 and a TSH of 18.40. So at this time, we will actually be adding levothyroxine given at 50 mcg stat today and o nce daily in the morning as ordered. We will titrate incrementally as indicated to optimize metaboli c control. We will obtain serial chemistries and supplement accordingly as needed. We will follow. Polly Vu MD cc: [id number] TT: 06/05/2016 13:56:10 Confirmation # [id number] Dictation # [id number] valentina
--- NOTE | 2016-06-05 15:35 | CP.PCM.PN ---
Subjective - Date & Time of Evaluation Date of Evaluation: 06/05/16 Time of Evaluation: 15:30 - Subjective Subjective: Lying in bed, awake and alert and complaining of feeling fatigued and short winded. Cough is still congested, and at this time nonproductive. Antibiotics have been started in the form of cefepime and clindamycin. She has been afebrile her blood pressure has been borderline low. She has remained mildly tachycardic. WBCs have dropped to 9.1 and hemoglobin to 9.3 g. Platelets are 286,000. Serum sodium is 128 and chloride of 90 and CO2 of 32. BUN/creatinine are normal. Theophylline blood level is 14.6. Maxillofacial CT scan has been performed and shows a large enhancing wall collection around the mid and upper right mandibular ramus and mandibular neck extending anteriorly and seen medial and lateral to the right zygomatic arch. This collection suggests abscess formation. There is no dullness on chest percussion. Expiratory phase is still prolonged scattered faint high-pitched expiratory wheezing heard bilaterally. Scattered rhonchi are heard in the lower lung corral posteriorly. No bronchial breathing or egophony is noted. Heart sounds are distant but rhythm appears regular and still mildly tachycardic. Abdomen soft and nontender with normal bowel sounds. There has been significant improvement in the dependent edema of both lower extremities. Exacerbation of COPD with acute suppurative bronchitis. Large right buccal abscess,? Osteomyelitis. X-ray suggests significant bullous formation in the right lung which will be evaluated with CT scan during this hospitalization. We'll review aerosol therapy and add mucolytic's as well as chest physical therapy. Continue current antibiotic regimen. Sputum for culture has been requested. Objective - Vital Signs/Intake and Output Vital Signs (last 24 hours): Temp Pulse Resp BP Pulse Ox 97.5 F L 101 H 18 98/64 L 97 06/05/16 12:00 06/05/16 12:12 06/05/16 12:00 06/05/16 12:12 06/05/16 12:00 Intake and Output: 06/05/16 06/05/16 11:59 23:59 Intake Total 200 Output Total 200 Balance 0 - Medications Medications: Current Medications Acetaminophen/Butalbital/Caffeine (Fioricet) 1 tab PO Q8H PRN PRN Reason: Headache Last Admin: 06/05/16 12:11 Dose: 1 tab Albuterol/Ipratropium (Duoneb 3 Mg/0.5 Mg (3 Ml) Ud) 3 ml IH TID PRN PRN Reason: Shortness of Breath Last Admin: 06/04/16 17:56 Dose: 3 ml Anastrozole (Arimidex 1 Mg Tab) 1 mg PO DAILY [facility] Last Admin: 06/05/16 11:16 Dose: 1 mg Aspirin (Ecotrin) 81 mg PO DAILY [facility] Last Admin: 06/05/16 09:36 Dose: 81 mg Baclofen (Lioresal) 10 mg PO HS [facility] Last Admin: 06/04/16 22:02 Dose: 10 mg Enoxaparin Sodium (Lovenox) 40 mg SC DAILY [facility] PRN Reason: Protocol Last Admin: 06/05/16 09:36 Dose: 40 mg Gabapentin (Neurontin) 600 mg PO TID [facility] Last Admin: 06/05/16 12:06 Dose: 600 mg Home Med (Diclofenac Sodium [Voltaren]) 1 appl TOP BID PRN PRN Reason: Pain, Mild (1-3) Clindamycin Phosphate 300 mg/ (Sodium Chloride) 102 mls @ 102 mls/hr IVPB Q8 [facility] Last Admin: 06/05/16 09:00 Dose: 102 mls/hr Cefepime HCl 1 gm/ Sodium (Chloride) 100 mls @ 100 mls/hr IVPB Q8 [facility] Last Admin: 06/05/16 11:12 Dose: 100 mls/hr Lactobacillus Acidophilus (Bacid Acidophilus) 1 cap PO BID [facility] Last Admin: 06/05/16 09:10 Dose: 1 cap Levothyroxine Sodium (Synthroid) 50 mcg PO 0630 [facility] Metoprolol Succinate (Toprol Xl) 25 mg PO DAILY [facility] Last Admin: 06/05/16 09:37 Dose: Not Given Multivitamins/Minerals (Therapeutic-M Tab) 1 tab PO DAILY [facility] Last Admin: 06/05/16 09:34 Dose: 1 tab Pantoprazole Sodium (Protonix Ec Tab) 40 mg PO DAILY [facility] Last Admin: 06/05/16 09:35 Dose: 40 mg Prednisone (Prednisone Tab) 5 mg PO TID [facility] Last Admin: 06/05/16 12:07 Dose: 5 mg Fluticasone/Salmeterol (Advair Diskus 250/50) 1 puff IH Q12 [facility] Last Admin: 06/05/16 09:34 Dose: 1 puff Theophylline (Maximiliano-24) 200 mg PO Q12 [facility] Last Admin: 06/05/16 09:35 Dose: 200 mg Verapamil HCl (Calan Tab) 80 mg PO TID [facility] Last Admin: 06/05/16 12:12 Dose: Not Given - Labs Labs: 06/05/16 05:30 06/05/16 05:30 PT 11.0 SECONDS (9.6-11.2) 06/03/16 22:33 INR 1.06 (0.92-1.08) 06/03/16 22:33 APTT 27.5 SECONDS (23.3-32.5) 06/03/16 22:33 Assessment and Plan (1) Acute bronchitis with chronic obstructive pulmonary disease (COPD) Status: Acute (2) Hyperthyroidism Status: Chronic (3) Abscess Status: Acute
[2016-06-05 21:34] LABS: CORTISOL AM 12.8 ug/dL (4.46-22.7)
[2016-06-06] MEDS: Clindamycin 600 MG in Sodium Chloride 0.9% 100 ML IVPB SCH ×3 (00:33→16:54)
[2016-06-06] MEDS: Piperacillin/Tazobact 3.375 GM in Sodium Chloride 0.9% 100 ML IVPB SCH ×3 (01:35→18:40)
[2016-06-06] MEDS: Levothyroxine 50 MCG TAB PO SCH (06:29)
--- NOTE | 2016-06-06 07:53 | CP.PCM.PN ---
Subjective - Date & Time of Evaluation Date of Evaluation: 06/06/16 Time of Evaluation: 07:52 - Subjective Subjective: PT STATES SHE HAS PAIN WITH HER FACIAL SWELLING DISCUSSED THAT SHE TAKES PERCOCET AT HOME FOR PAIN, WILL CONTINUE OTHERWISE PT IS WITHOUT COMPLAINT. DENIES CP, SOB VSS NAD Objective - Vital Signs/Intake and Output Vital Signs (last 24 hours): Temp Pulse Resp BP Pulse Ox 98.5 F 107 H 20 94/56 L 95 06/06/16 04:05 06/06/16 04:05 06/06/16 04:05 06/06/16 04:05 06/06/16 04:05 Intake and Output: 06/06/16 06/06/16 06:59 18:59 Intake Total 500 Output Total 650 Balance -150 - Medications Medications: Current Medications Acetaminophen/Butalbital/Caffeine (Fioricet) 1 tab PO Q8H PRN PRN Reason: Headache Last Admin: 06/05/16 12:11 Dose: 1 tab Albuterol/Ipratropium (Duoneb 3 Mg/0.5 Mg (3 Ml) Ud) 3 ml IH TID PRN PRN Reason: Shortness of Breath Last Admin: 06/04/16 17:56 Dose: 3 ml Anastrozole (Arimidex 1 Mg Tab) 1 mg PO DAILY [facility] Last Admin: 06/05/16 11:16 Dose: 1 mg Aspirin (Ecotrin) 81 mg PO DAILY [facility] Last Admin: 06/05/16 09:36 Dose: 81 mg Baclofen (Lioresal) 10 mg PO HS [facility] Last Admin: 06/05/16 21:32 Dose: 10 mg Enoxaparin Sodium (Lovenox) 40 mg SC DAILY [facility] PRN Reason: Protocol Last Admin: 06/05/16 09:36 Dose: 40 mg Gabapentin (Neurontin) 600 mg PO TID [facility] Last Admin: 06/05/16 16:11 Dose: 600 mg Home Med (Diclofenac Sodium [Voltaren]) 1 appl TOP BID PRN PRN Reason: Pain, Mild (1-3) Clindamycin Phosphate 600 mg/ (Sodium Chloride) 104 mls @ 104 mls/hr IVPB Q8 [facility] Last Admin: 06/06/16 00:33 Dose: 104 mls/hr Piperacillin Sod/Tazobactam (Sod 3.375 gm/ Sodium Chloride) 100 mls @ 100 mls/ hr IVPB Q8H [facility] Last Admin: 06/06/16 01:35 Dose: 100 mls/hr Lactobacillus Acidophilus (Bacid Acidophilus) 1 cap PO BID [facility] Last Admin: 06/05/16 16:16 Dose: 1 cap Levothyroxine Sodium (Synthroid) 50 mcg PO 0630 [facility] Last Admin: 06/06/16 06:29 Dose: 50 mcg Metoprolol Succinate (Toprol Xl) 25 mg PO DAILY [facility] Last Admin: 06/05/16 09:37 Dose: Not Given Multivitamins/Minerals (Therapeutic-M Tab) 1 tab PO DAILY [facility] Last Admin: 06/05/16 09:34 Dose: 1 tab Pantoprazole Sodium (Protonix Ec Tab) 40 mg PO DAILY [facility] Last Admin: 06/05/16 09:35 Dose: 40 mg Prednisone (Prednisone Tab) 5 mg PO TID [facility] Last Admin: 06/05/16 16:11 Dose: 5 mg Fluticasone/Salmeterol (Advair Diskus 250/50) 1 puff IH Q12 [facility] Last Admin: 06/05/16 21:31 Dose: 1 puff Theophylline (Maximiliano-24) 200 mg PO Q12 [facility] Last Admin: 06/05/16 21:32 Dose: 200 mg Verapamil HCl (Calan Tab) 80 mg PO TID [facility] Last Admin: 06/05/16 16:22 Dose: Not Given - Labs Labs: 06/05/16 05:30 06/05/16 05:30 PT 11.0 SECONDS (9.6-11.2) 06/03/16 22:33 INR 1.06 (0.92-1.08) 06/03/16 22:33 APTT 27.5 SECONDS (23.3-32.5) 06/03/16 22:33 - Head Exam Additional comments: GEN: WDWN, NAD HEENT: NCAT, PERRL, EOMI mild facial swelling CARDIO: RRR, +S1S2, RESP: CTAB, NO WRR ABD: SOFT, NT, ND BSx4 EXT: WARM WELL PERFUSED, edema improved, abrasions, s/p shoulder resection NEURO: AAOX3, b/l strength symmetrical INTEGUMENTARY: warm dry PSYCH: NORMAL MOOD, NORMAL AFFECT Assessment and Plan - Assessment and Plan (Free Text) Plan: ASSESSMENT AND PLAN 66 y/o female PMH COPD, bilateral breast CA s/p chemo/rad 8 years ago with bone mets to shoulder (s/p humerus resection), HTN, hyperthyroidism presents today with a 1 week history of bilateral lower extremity swelling. Pt has mild dyspnea at baseline. She has had no similar episodes in the past. Bilateral LE edema and weakness, likely CHF with diastolic dysfx, preserved EF Breathing is improved, edema also improving +fluid restriction 1200ml +Gutierrez cath last echo 06/2015 NORMAL EF, +MR +diastolic dysfunction cont lasix 40 mg IV q12 CXR pending PT eval and treat Hypokalemia acute, replete as necessary given lasix repleted again today repeat BMP Mg was low, Mg given once Hyponatremia continues to be low, pt on loops will monitor fluid restriction today still low, cont fluid restriction no signs of weakness or paresthesia, confusion COPD chronic stable cont Duonebs, throphylline cont prednisone 5mg po daily Dr. Benz consult appreciated and followed Hx breast ca, bilateral stable continue arimidex Hypertension cont metoprolol succ 12.5 mg po daily and verapamil 80 mg PO TID stable Maxillofacial abscess ID consult appreciated and followed continue clindamycin and cefepime Hyperthyroid, was hypo, d/c methimazole on synthroid LE abrasions Wound Care Foot pain Dorsum R Podiatry DVT ppx lovenox
[2016-06-06 08:20] LABS: BASO % 0.2 % (0.0-2.0); EOS % 0.1 % (0.0-4.0); LYMPH # 1.5 K/uL (1.0-4.3); LYMPH % 17.1 % (20.0-40.0); MEAN CELL VOLUME 66.6 fl (81.0-99.0); MEAN CORPUSCULAR HEMOGLOBIN 19.4 pg (27.0-31.0); MEAN CORPUSCULAR HGB CONC 29.2 g/dL (33.0-37.0); MEAN PLATELET VOLUME 8.4 fl (7.2-11.7); MONO # 0.4 K/uL (0.0-0.8); MONO % 4.9 % (0.0-10.0); NEUT # 6.8 K/uL (1.8-7.0); NEUT % 77.7 % (50.0-75.0); PLATELET COUNT 247 K/uL (130-400); WHITE BLOOD COUNT 8.8 K/uL (4.8-10.8)
[2016-06-06 08:25] LABS: BLOOD UREA NITROGEN 9 mg/dl (7-17); CALCIUM 7.7 mg/dL (8.4-10.2); CARBON DIOXIDE 35 mmol/L (22-30); CHLORIDE 89 mmol/L (98-107); GFR AFRICAN-AMERICAN > 60; GLUCOSE,RANDOM 53 mg/dL (65-105); POTASSIUM 3.4 MMOL/L (3.6-5.0); SODIUM 127 mmol/l (132-148)
[2016-06-06 08:37] LABS: HEMATOCRIT 31.4 % (34.0-47.0)
[2016-06-06] MEDS: Fluticasone-Salmeterol 250-50mcg Diskus IH SCH ×2 (08:49→22:09)
[2016-06-06] MEDS: Lactobacillus Acidophilus 500 MU Cap PO SCH ×2 (08:51→16:53)
[2016-06-06] MEDS: Enoxaparin 40 mg Syringe SC SCH (08:54)
[2016-06-06] MEDS: Pantoprazole 40 mg EC Tab PO SCH (08:54)
[2016-06-06] MEDS: Theophylline 200mg ER 24 hrs Cap PO SCH ×2 (08:54→22:11)
[2016-06-06] MEDS: Metoprolol Succinate 25 mg XL Tab PO SCH (08:55)
[2016-06-06] MEDS: Multivitamin With Minerals Tab PO SCH (08:55)
[2016-06-06] MEDS ORDERED: Magnesium Sulfate 2 GM in Sodium Chloride 0.9% 100 ML IVPB ONE (09:44)
[2016-06-06] MEDS ORDERED: Potassium Chloride 20 mEq ER Tab PO ONE (09:44)
[2016-06-06] MEDS: Oxycodone/Acetaminophen 5/325 mg Tab PO PRN (10:10)
[2016-06-06 10:20] LABS: ERYTHROCYTE SEDIMENTATION RATE 14 mm/hr (0-30)
[2016-06-06 10:23] LABS: NEUTROPHIL 91 % (42-75); TOTAL CELLS COUNTED 100
[2016-06-06 10:28] LABS: LARGE PLATELETS PRESENT
[2016-06-06] MEDS ORDERED: Sodium Chloride 0.9% 250 ML IV ONE (12:34)
--- NOTE | 2016-06-06 13:30 | PN ---
DATE: 06/06/2016 ROOM: 404. SUBJECTIVE: This is a 66-year-old female with acute exacerbation of COPD with supervening congestive heart failure and is now being followed closely for metabolic management. She also has a concomitan t dental abscess and is currently receiving IV antibiotic management at this time. Moreover, she has developed early hypothyroidism with a significant history of longstanding intake of Tapazole for man agement of hyperthyroidism. Her latest chemistries include a BUN of 9, sodium 127, potassium 3.4, ch loride 89, CO2 35, glucose 53 and creatinine 0.4. Her latest thyroid levels showed a T4 of 0.921 wit h a TSH of 18.40 and free T4 of 0.13. Her serum cortisol level is 12.8. So at this time, we actual ly have started her on a very low dose of levothyroxine given as 50 mcg once daily before breakfast a nd we will titrate incrementally as indicated to optimize metabolic control. She is also currently o n prednisone given as 5 mg t.i.d. as given. We will obtain serial chemistries and supplement accordi ngly as needed. We will also obtain serial thyroid studies and adjust her levothyroxine dose accordi ngly. We will follow. Polly Vu MD cc: [id number] TT: 06/06/2016 13:29:11 Confirmation # [id number] Dictation # [id number] [email or web address]
[2016-06-06 19:08] LABS: PROCALCITONIN SERUM 0.37 NG/ML (0.19-0.49)
[2016-06-07] MEDS: Clindamycin 600 MG in Sodium Chloride 0.9% 100 ML IVPB SCH ×3 (01:04→17:00)
[2016-06-07] MEDS: Piperacillin/Tazobact 3.375 GM in Sodium Chloride 0.9% 100 ML IVPB SCH ×4 (02:26→18:12)
[2016-06-07] MEDS: Oxycodone/Acetaminophen 5/325 mg Tab PO PRN ×2 (05:06→10:57)
[2016-06-07 05:55] LABS: ALB/GLOB RATIO 0.9 (1.0-2.1); ALKALINE PHOSPHATASE 106 U/L (38-126); ALT/SGPT 22 U/L (9-52); AST/SGOT 12 U/L (14-36); BILIRUBIN,TOTAL 0.3 mg/dl (0.2-1.3); BLOOD UREA NITROGEN 10 mg/dl (7-17); CARBON DIOXIDE 29 mmol/L (22-30); CHLORIDE 94 mmol/L (98-107); GFR AFRICAN-AMERICAN > 60; GLUCOSE,RANDOM 104 mg/dL (65-105); POTASSIUM 4.1 MMOL/L (3.6-5.0); SODIUM 127 mmol/l (132-148); TOTAL PROTEIN 4.5 G/DL (6.3-8.2)
[2016-06-07 06:16] LABS: T4 1.08 ug/dl (5.5-11.0)
[2016-06-07] MEDS: Levothyroxine 50 MCG TAB PO SCH (06:33)
[2016-06-07] MEDS: Fluticasone-Salmeterol 250-50mcg Diskus IH SCH ×2 (09:18→21:21)
[2016-06-07] MEDS: Enoxaparin 40 mg Syringe SC SCH (09:24)
[2016-06-07] MEDS: Pantoprazole 40 mg EC Tab PO SCH (09:26)
[2016-06-07] MEDS: Multivitamin With Minerals Tab PO SCH (09:27)
[2016-06-07] MEDS: Theophylline 200mg ER 24 hrs Cap PO SCH ×2 (09:27→21:22)
[2016-06-07] MEDS: Metoprolol Succinate 25 mg XL Tab PO SCH (09:29)
[2016-06-07] MEDS: Lactobacillus Acidophilus 500 MU Cap PO SCH ×2 (09:44→17:00)
--- NOTE | 2016-06-07 10:19 | CP.PCM.PN ---
Subjective - Date & Time of Evaluation Date of Evaluation: 06/07/16 Time of Evaluation: 10:16 - Subjective Subjective: Interim events reviewed. Continues to complain of significant pain on the right side of her face. Degree of swelling does not appear to be any less than seen two days ago. She does remain afebrile and her BP runs low-normal. Her chest is congested and she has been unable to expectorate. She continues to receive parenteral antibiotics (zosyn/clinda). No leukocytosis, mildly anemic. Purulent secretions are present over the right buccal mucous membrane. General erythema of the pharynx is noted. Large fluctuant, tender, swollen right buccal area extending upwards to the periorbital level. Neck remains supple and trachea midline. No dullness on chest percussion. Congested and non-productive cough. Coarse sonorous rhonchi are present in dependant zones bilaterally. No audible wheezing or bronchial breathing. Will add mucolytic aerosol therapy. Chest PT with flutter valve if tolerated. Maxillo-facial surgery consult requested. Antibiotics to continue, ID follow up. Add Spiriva capsule inhalation. Objective - Vital Signs/Intake and Output Vital Signs (last 24 hours): Temp Pulse Resp BP Pulse Ox 97.6 F 98 H 18 90/61 L 95 06/07/16 08:00 06/07/16 09:29 06/07/16 08:00 06/07/16 09:29 06/07/16 08:00 Intake and Output: 06/06/16 06/07/16 23:59 11:59 Intake Total 500 Output Total 1000 225 Balance -1000 275 - Medications Medications: Current Medications Acetaminophen/Butalbital/Caffeine (Fioricet) 1 tab PO Q8H PRN PRN Reason: Headache Last Admin: 06/05/16 12:11 Dose: 1 tab Acetylcysteine (Mucomyst 10% 4ml) 2 ml IH RBID [facility] Albuterol Sulfate (Albuterol 0.083% Inhal Aby (2.5 Mg/3 Ml) Ud) 2.5 mg INH RQ4 PRN PRN Reason: Shortness of Breath Anastrozole (Arimidex 1 Mg Tab) 1 mg PO DAILY [facility] Last Admin: 06/07/16 09:20 Dose: 1 mg Aspirin (Ecotrin) 81 mg PO DAILY [facility] Last Admin: 06/07/16 09:23 Dose: 81 mg Baclofen (Lioresal) 10 mg PO HS [facility] Last Admin: 06/06/16 22:11 Dose: 10 mg Enoxaparin Sodium (Lovenox) 40 mg SC DAILY [facility] PRN Reason: Protocol Last Admin: 06/07/16 09:24 Dose: 40 mg Gabapentin (Neurontin) 600 mg PO TID [facility] Last Admin: 06/07/16 09:24 Dose: 600 mg Home Med (Diclofenac Sodium [Voltaren]) 1 appl TOP BID PRN PRN Reason: Pain, Mild (1-3) Clindamycin Phosphate 600 mg/ (Sodium Chloride) 104 mls @ 104 mls/hr IVPB Q8 [facility] Last Admin: 06/07/16 09:22 Dose: 104 mls/hr Piperacillin Sod/Tazobactam (Sod 3.375 gm/ Sodium Chloride) 100 mls @ 100 mls/ hr IVPB Q8H [facility] Last Admin: 06/07/16 02:26 Dose: 100 mls/hr Lactobacillus Acidophilus (Bacid Acidophilus) 1 cap PO BID [facility] Last Admin: 06/07/16 09:44 Dose: 1 cap Levothyroxine Sodium (Synthroid) 50 mcg PO 0630 [facility] Last Admin: 06/07/16 06:33 Dose: 50 mcg Metoprolol Succinate (Toprol Xl) 25 mg PO DAILY [facility] Last Admin: 06/07/16 09:29 Dose: Not Given Multi-Ingredient Cream (Hydrocerin Cream) 1 applic TOP BID [facility] Multivitamins/Minerals (Therapeutic-M Tab) 1 tab PO DAILY [facility] Last Admin: 06/07/16 09:27 Dose: 1 tab Oxycodone/Acetaminophen (Percocet 5/325 Mg Tab) 1 tab PO Q6 PRN PRN Reason: Pain, moderate (4-7) Stop: 06/09/16 09:35 Last Admin: 06/07/16 05:06 Dose: 1 tab Pantoprazole Sodium (Protonix Ec Tab) 40 mg PO DAILY [facility] Last Admin: 06/07/16 09:26 Dose: 40 mg Prednisone (Prednisone Tab) 5 mg PO TID [facility] Last Admin: 06/07/16 09:26 Dose: 5 mg Fluticasone/Salmeterol (Advair Diskus 250/50) 1 puff IH Q12 [facility] Last Admin: 06/07/16 09:18 Dose: 1 puff Theophylline (Maximiliano-24) 200 mg PO Q12 [facility] Last Admin: 06/07/16 09:27 Dose: 200 mg Tiotropium [place] (Spiriva) 18 mcg INH DAILY [facility] Verapamil HCl (Calan Tab) 80 mg PO TID [facility] Last Admin: 06/07/16 09:21 Dose: Not Given - Labs Labs: 06/06/16 06:00 06/07/16 04:10 PT 11.0 SECONDS (9.6-11.2) 06/03/16 22:33 INR 1.06 (0.92-1.08) 06/03/16 22:33 APTT 27.5 SECONDS (23.3-32.5) 06/03/16 22:33 Assessment and Plan (1) Acute bronchitis with chronic obstructive pulmonary disease (COPD) Status: Acute (2) Hyperthyroidism Status: Chronic (3) Abscess Status: Acute
--- NOTE | 2016-06-07 10:23 | CON ---
DATE: 06/05/2016 INFECTIOUS DISEASE CONSULT The patient is in room 404, bed 2 on the telemetry floor She is a 66-year-old female who was admitted via the Emergency Room. She went there with the complaint of shortness of breath and productive cough, and also she noted that there was swelling of the right facial area after she had been seen by her dentist and had some dental work done. She also noted that she had developed some weakness and could not ambulate without her walker and became progressively more short of breath. She said she had some chills yesterday when in the hospital. Denies any chest pain. In regards to the abscess that she had been seen by an oral surgeon, she was taking Cipro. 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 The patient noted to have swelling of the right upper extremity. PAST SURGICAL HISTORY: Bilateral mastectomies and right shoulder arthroplasty. She also had the right shoulder prosthesis removed because of infection, also a lumbar spinal fusion, as well as cervical fusion. PHYSICAL EXAMINATION: GENERAL: She is a chronically ill-appearing woman who states she feels better today. HEENT: There is like major swelling and erythema over the right buccal area extending to the periorbital region. It is quite tender upon examination, and she even moves away as my hand approached her facial area. Also the oropharynx is erythematous, and she has purulent secretions. NECK: Supple, and I was unable to see if there was any submandibular adenopathy because of the swelling and the pain on touch. There are surgical changes on the thorax secondary to bilateral mastectomies. HEART: Regular sinus rhythm, but she was mildly tachycardic when I examined her. LUNGS: Breath sounds are significantly diminished bilaterally. ABDOMEN: Soft, positive bowel sounds. EXTREMITIES: The patient has on the lower extremities 1+ dependent edema, and she also has edema of the right upper extremity. There is no calf tenderness. LABORATORY DATA: The sodium is 128, potassium 4.9, chloride 90, carbon dioxide 32. BUN is 11. Creatinine is 0.5. GFR is greater than 60. Random glucose is 107. LFTs are within normal limits. TSH third generation is 18.40. CBC: WBC is 9.1, hemoglobin of 9.3. Platelet count is 286. Polys are 90.5, lymphs 2.9. She has 2 bands. Cultures are all pending. Facial CT shows a large enhancing wall collection seen around the mid and upper right mandibular ramus and mandibular neck extending anteriorly and seen medial and lateral to the right zygomatic arch as described. The collection contains foci of air. The density and the appearance of this collection is suggestive of abscess formation. The collection is seen anteriorly to the right parotid gland and extending medially to the right posterior oral cavity, mild to moderate right maxillary sinus mucosal thickening, and small air fluid level. Partial opacification of both mastoids suggestive of mastoiditis. IMPRESSION: She has an abscess significant for severe buccal abscess, and there is probably a question of this being osteomyelitis. Has some drainage in the oral cavity. She also has acute bronchitis with chronic obstructive pulmonary disease. I have adjusted the antibiotics, increased the clindamycin to 600 mg IV piggyback q. 8, and discontinue the Maxipime, and started Zosyn 3.375 grams IV piggyback q. 8. The Zosyn was to increase both gram-positive coverage and anaerobic coverage, as Maxipime does not cover enterococcus. The patient may need to have some sort of drainage procedure or even attempt to get some fluid for culture in view of the fact that this may represent long-term IV antibiotic treatment. DICTATION ENDS HERE. Tyrone Obrien MD cc: [id number] TT: 06/06/2016 09:37:16 Confirmation # [id number] Dictation # [id number] MTDD
[2016-06-07] MEDS: Tiotropium 18 mcg Cap For Inhalation INH SCH (10:59)
[2016-06-07] MEDS: Hydrocerin CREAM TOP SCH ×2 (11:49→16:54)
--- NOTE | 2016-06-07 14:11 | CP.PCM.PN ---
Subjective - Date & Time of Evaluation Date of Evaluation: 06/07/16 Time of Evaluation: 10:30 - Subjective Subjective: Patient was seen and evaluated bedside.Chronically ill female, older than her stated age, cachetic , pale lying in bed and complaining of right facial pain. States that pain is severe, improves with pain medication. BP in the lower side 93/ 59 tachycardic HR 103 afebril eWBC 8.8 K With chest congestion and coughing spells unable to expectorate Na 127 Cl 94 Objective - Vital Signs/Intake and Output Vital Signs (last 24 hours): Temp Pulse Resp BP Pulse Ox 97.9 F 103 H 18 98/59 L 97 06/07/16 11:49 06/07/16 13:08 06/07/16 11:49 06/07/16 13:08 06/07/16 11:49 Intake and Output: 06/07/16 06/07/16 06:59 18:59 Intake Total 500 Output Total 225 Balance 275 - Medications Medications: Current Medications Acetaminophen/Butalbital/Caffeine (Fioricet) 1 tab PO Q8H PRN PRN Reason: Headache Last Admin: 06/05/16 12:11 Dose: 1 tab Acetylcysteine (Mucomyst 10% 4ml) 2 ml IH RBID [facility] Albuterol Sulfate (Albuterol 0.083% Inhal Aby (2.5 Mg/3 Ml) Ud) 2.5 mg INH RQ4 PRN PRN Reason: Shortness of Breath Anastrozole (Arimidex 1 Mg Tab) 1 mg PO DAILY [facility] Last Admin: 06/07/16 09:20 Dose: 1 mg Aspirin (Ecotrin) 81 mg PO DAILY [facility] Last Admin: 06/07/16 09:23 Dose: 81 mg Baclofen (Lioresal) 10 mg PO HS [facility] Last Admin: 06/06/16 22:11 Dose: 10 mg Enoxaparin Sodium (Lovenox) 40 mg SC DAILY [facility] PRN Reason: Protocol Last Admin: 06/07/16 09:24 Dose: 40 mg Gabapentin (Neurontin) 600 mg PO TID [facility] Last Admin: 06/07/16 13:12 Dose: 600 mg Home Med (Diclofenac Sodium [Voltaren]) 1 appl TOP BID PRN PRN Reason: Pain, Mild (1-3) Clindamycin Phosphate 600 mg/ (Sodium Chloride) 104 mls @ 104 mls/hr IVPB Q8 [facility] Last Admin: 06/07/16 09:22 Dose: 104 mls/hr Piperacillin Sod/Tazobactam (Sod 3.375 gm/ Sodium Chloride) 100 mls @ 100 mls/ hr IVPB Q8H [facility] Last Admin: 06/07/16 11:00 Dose: 100 mls/hr Lactobacillus Acidophilus (Bacid Acidophilus) 1 cap PO BID [facility] Last Admin: 06/07/16 09:44 Dose: 1 cap Levothyroxine Sodium (Synthroid) 50 mcg PO 0630 [facility] Last Admin: 06/07/16 06:33 Dose: 50 mcg Metoprolol Succinate (Toprol Xl) 25 mg PO DAILY [facility] Last Admin: 06/07/16 09:29 Dose: Not Given Multi-Ingredient Cream (Hydrocerin Cream) 1 applic TOP BID [facility] Last Admin: 06/07/16 11:49 Dose: 1 applic Multivitamins/Minerals (Therapeutic-M Tab) 1 tab PO DAILY [facility] Last Admin: 06/07/16 09:27 Dose: 1 tab Oxycodone/Acetaminophen (Percocet 5/325 Mg Tab) 1 tab PO Q6 PRN PRN Reason: Pain, moderate (4-7) Stop: 06/09/16 09:35 Last Admin: 06/07/16 10:57 Dose: 1 tab Pantoprazole Sodium (Protonix Ec Tab) 40 mg PO DAILY [facility] Last Admin: 06/07/16 09:26 Dose: 40 mg Prednisone (Prednisone Tab) 5 mg PO TID [facility] Last Admin: 06/07/16 13:13 Dose: 5 mg Fluticasone/Salmeterol (Advair Diskus 250/50) 1 puff IH Q12 [facility] Last Admin: 06/07/16 09:18 Dose: 1 puff Theophylline (Maximiliano-24) 200 mg PO Q12 [facility] Last Admin: 06/07/16 09:27 Dose: 200 mg Tiotropium [place] (Spiriva) 18 mcg INH DAILY [facility] Last Admin: 06/07/16 10:59 Dose: 18 mcg Verapamil HCl (Calan Tab) 80 mg PO TID [facility] Last Admin: 06/07/16 13:08 Dose: Not Given - Labs Labs: 06/06/16 06:00 06/07/16 04:10 PT 11.0 SECONDS (9.6-11.2) 06/03/16 22:33 INR 1.06 (0.92-1.08) 06/03/16 22:33 APTT 27.5 SECONDS (23.3-32.5) 06/03/16 22:33 - Constitutional Appears: Non-toxic, Cachectic, Chronically Ill - Head Exam Head Exam: ATRAUMATIC, NORMOCEPHALIC - Eye Exam Eye Exam: EOMI, Normal appearance, PERRL Pupil Exam: NORMAL ACCOMODATION - ENT Exam Additional comments: right inner bucal mucosa with foul smelling and purulent discharge - Neck Exam Neck Exam: Lymphadenopathy (right submandibular ), Tenderness. absent: Full ROM (restriceted ROM ) - Respiratory Exam Respiratory Exam: Decreased Breath Sounds (bibasilar ), Prolonged Expiratory Phase, Rales. absent: Wheezes - Cardiovascular Exam Cardiovascular Exam: Tachycardia. absent: JVD - GI/Abdominal Exam GI & Abdominal Exam: Soft, Normal Bowel Sounds. absent: Distended, Guarding, Tenderness, Rebound - Rectal Exam Rectal Exam: Deferred - Extremities Exam Extremities Exam: Normal Capillary Refill. absent: Calf Tenderness, Pedal Edema Additional comments: RUE lymphedema - Back Exam Back Exam: NORMAL INSPECTION - Neurological Exam Neurological Exam: Alert, Awake, CN II-XII Intact, Oriented x3 - Psychiatric Exam Psychiatric exam: Normal Affect, Normal Mood - Skin Skin Exam: Dry, Pallor, Warm Assessment and Plan - Assessment and Plan (Free Text) Assessment: 66 y/o female PMH COPD, bilateral breast CA s/p chemo and radiation 8 years ago with bone mets to shoulder (s/p humerus resection), HTN, hyperthyroidism presented with 2 week history of worsening bilateral lower extremity swelling and weakness, unable to get herself up to her walker. Patient has mild dyspnea at baseline. She also noted to have right facial swelling for almost 2 weeks being treated with Po antibiotics as out patient. Patient admitted for generalized weakness , Hyponatremia and facial abscess. She was started on IV Clinda and Zosyn for facial abscess and lasix Iv and fluid restriction for LE edema . At present she is afebrile with WBC 8.[address] showed possible abscess accumulation and patient has purulent discharge on inner buccal mucosa 1. Facial abscess Patient is afebrile WBC 8.[address] showed :Large enhancing wall collection seen around the mid and upper right mandibular ramus and mandibular neck extending anteriorly and seen medial and lateral to the right zygomatic arch as described above. This collection contains foci of air. The density and the appearance of this collection suggestive of abscess formation. The collection is seen anterior to the right parotid gland and extending medially to the posterior right oral cavity. [id number] right maxillary sinus mucosal thickening and small air-fluid level. Partial opacification of both mastoids suggestive of mastoiditis. ID on conssult Continue Clindamycin and Vancomycin IV Patient will need evaluation by maxillofacial surgeon for possible I& D 2. Bilateral LE edema and weakness, likely CHF exacerbation with diastolic dysfx, preserved EF Strated lasix 40 mg IV q12 and fluid restriction Breathing is improved, edema also improving last echo 06/2015 NORMAL EF, +MR +diastolic dysfunction PT eval and treat Podiatry consult for dorsum pain and wound consult for LE abrasions 3.Hypokalemia resolved Most likely diuretic induced 4.Hyponatremia most likely secondary to solute depletion and infection Continue fluid restriction 5.Acute bronchitis and COPD imperoving dyspnea cont Duonebs, theophylline , spiriva, Advair cont prednisone 5mg po daily Dr. Benz consult appreciated and followed 6.Hx breast ca, bilateral stable continue arimidex 7.Hypertension on the low side Hold BP meds if SBpo < 100 8. Hypothyroidism patient has history of hyperthyroidism and wsa on Methimazole TSH 23 Endo consulted D/c methimazole and started Synthroid 9. Anemia Most likely chronic monitor 10.DVT ppx lovenox
--- NOTE | 2016-06-07 15:29 | PN ---
DATE: 06/07/2016 ROOM: 404 This is a 66-year-old female with recent overt hypothyroidism with a significant history of longstand ing intake of Tapazole for management of hyperthyroidism and presenting here with congestive heart fa ilure and also exacerbation of COPD and has been followed closely for metabolic management. Her glycemic levels are fluctuating as noted and her latest chemistry showed a BUN of 10, sodium 127, potassium 4.1, chloride 94, CO2 29, glucose 104 and creatinine 0.5. Her latest thyroid study showed a T4 of 1.08 and a TSH of 23.10 and clearly still remains euthyroid, both historically, clinically a nd biochemically as noted thereof. So at this, we will increase her levothyroxine to actually 75 mcg once daily before breakfast as orde red. The first dose will be given tomorrow morning as ordered. We will titrate incrementally as ind icated to optimize metabolic control. We will obtain serial chemistries and supplement accordingly a s needed. We will also obtain serial thyroid studies and adjust her dose regimen to optimize metabol ic control. We will follow. Polly Vu MD cc: [id number] TT: 06/07/2016 15:29:15 Confirmation # [id number] Dictation # [id number] en
[2016-06-07] MEDS: Acetylcysteine 10% 4 ML IH SCH (20:54)
[2016-06-07] MEDS: Albuterol 0.083% Inhal Sol (2.5 mg/3 mL) UD INH PRN (20:57)
[2016-06-08] MEDS: Clindamycin 600 MG in Sodium Chloride 0.9% 100 ML IVPB SCH ×3 (00:06→17:17)
[2016-06-08] MEDS: Oxycodone/Acetaminophen 5/325 mg Tab PO PRN ×3 (01:02→14:15)
[2016-06-08] MEDS: Piperacillin/Tazobact 3.375 GM in Sodium Chloride 0.9% 100 ML IVPB SCH ×3 (02:11→18:34)
[2016-06-08] MEDS: Levothyroxine 75 MCG TAB PO SCH (05:52)
[2016-06-08 06:00] LABS: HEMATOCRIT 31.7 % (34.0-47.0); MEAN CELL VOLUME 67.6 fl (81.0-99.0); MEAN CORPUSCULAR HEMOGLOBIN 19.2 pg (27.0-31.0); MEAN CORPUSCULAR HGB CONC 28.5 g/dL (33.0-37.0); RED CELL DISTRIBUTION WIDTH 24.2 % (11.5-14.5); WHITE BLOOD COUNT 4.8 K/uL (4.8-10.8)
[2016-06-08 06:17] LABS: BLOOD UREA NITROGEN 10 mg/dl (7-17); CARBON DIOXIDE 32 mmol/L (22-30); CHLORIDE 94 mmol/L (98-107); GFR AFRICAN-AMERICAN > 60; GLUCOSE,RANDOM 77 mg/dL (65-105); POTASSIUM 3.5 MMOL/L (3.6-5.0); SODIUM 129 mmol/l (132-148)
[2016-06-08] MEDS: Acetylcysteine 10% 4 ML IH SCH ×2 (08:04→21:03)
[2016-06-08] MEDS: Albuterol 0.083% Inhal Sol (2.5 mg/3 mL) UD INH PRN ×2 (08:04→21:02)
--- NOTE | 2016-06-08 08:28 | PCM.DENTAL ---
Dental Consult - Swelling Swelling: (left side) Location: left side of face cheek and mandible - Recommendations Recommendations to admitting physician: Re to oral maxofacia; surgeon for evaluation - Referrals Referral: oral surgeon while hospitalized
[2016-06-08] MEDS: Fluticasone-Salmeterol 250-50mcg Diskus IH SCH ×2 (08:54→21:18)
[2016-06-08] MEDS: Hydrocerin CREAM TOP SCH ×2 (09:01→17:12)
[2016-06-08] MEDS: Enoxaparin 40 mg Syringe SC SCH (09:02)
[2016-06-08] MEDS: Pantoprazole 40 mg EC Tab PO SCH (09:04)
[2016-06-08] MEDS: Multivitamin With Minerals Tab PO SCH (09:05)
[2016-06-08] MEDS: Theophylline 200mg ER 24 hrs Cap PO SCH (09:05)
[2016-06-08] MEDS: Tiotropium 18 mcg Cap For Inhalation INH SCH (09:05)
[2016-06-08] MEDS: Metoprolol Succinate 25 mg XL Tab PO SCH (09:06)
[2016-06-08] MEDS: Lactobacillus Acidophilus 500 MU Cap PO SCH ×2 (09:07→17:18)
[2016-06-08] MEDS ORDERED: Oxycodone/Acetaminophen 5/325 mg Tab PO PRN (10:30)
--- NOTE | 2016-06-08 10:42 | CP.PCM.PN ---
Subjective - Date & Time of Evaluation Date of Evaluation: 06/08/16 Time of Evaluation: 10:35 - Subjective Subjective: Case discussed with dental service, input appreciated. Oral maxillofacial surgery to see her today as well. Continues to complain of pain in the right face and inability to open her mouth widely. Remains afebrile and there is no leukocytosis, procalcitonin is also low. Sodium and chloride are slightly better, but still low. Started using flutter valve for CPT. Swelling of the right face may be slightly less this morning. Still large fluctuant area and significant tenderness. Neck is supple and trachea midline. No dullness on palpation of the anterior chest wall. Breath sounds are diminished bilaterally w/o audible wheezing. Cough is congested with sonorous rhonchi in both lower lobes. Continue zosyn and clinda. Increase slightly her analgesia. Monitor electrolytes. Hold next dose of theophylline (level is 18). Await more input from [facility] surgeon. Continue aerosol therapy with mucolytic. Objective - Vital Signs/Intake and Output Vital Signs (last 24 hours): Temp Pulse Resp BP Pulse Ox 98.0 F 102 H 20 116/70 96 06/08/16 07:48 06/08/16 09:06 06/08/16 07:48 06/08/16 09:06 06/08/16 07:48 Intake and Output: 06/07/16 06/08/16 23:59 11:59 Intake Total 1150 350 Output Total 350 550 Balance 800 -200 - Medications Medications: Current Medications Acetylcysteine (Mucomyst 10% 4ml) 2 ml IH RBID [facility] Last Admin: 06/08/16 08:04 Dose: 2 ml Albuterol Sulfate (Albuterol 0.083% Inhal Aby (2.5 Mg/3 Ml) Ud) 2.5 mg INH RQ4 PRN PRN Reason: Shortness of Breath Last Admin: 06/08/16 08:04 Dose: 2.5 mg Anastrozole (Arimidex 1 Mg Tab) 1 mg PO DAILY [facility] Last Admin: 06/08/16 08:56 Dose: 1 mg Aspirin (Ecotrin) 81 mg PO DAILY [facility] Last Admin: 06/08/16 09:00 Dose: 81 mg Baclofen (Lioresal) 10 mg PO HS [facility] Last Admin: 06/07/16 21:22 Dose: 10 mg Enoxaparin Sodium (Lovenox) 40 mg SC DAILY [facility] PRN Reason: Protocol Last Admin: 06/08/16 09:02 Dose: 40 mg Gabapentin (Neurontin) 600 mg PO TID [facility] Last Admin: 06/08/16 09:03 Dose: 600 mg Clindamycin Phosphate 600 mg/ (Sodium Chloride) 104 mls @ 104 mls/hr IVPB Q8 [facility] Last Admin: 06/08/16 09:07 Dose: 104 mls/hr Piperacillin Sod/Tazobactam (Sod 3.375 gm/ Sodium Chloride) 100 mls @ 100 mls/ hr IVPB Q8H [facility] Last Admin: 06/08/16 02:11 Dose: 100 mls/hr Lactobacillus Acidophilus (Bacid Acidophilus) 1 cap PO BID [facility] Last Admin: 06/08/16 09:07 Dose: 1 cap Levothyroxine Sodium (Synthroid) 75 mcg PO 0630 [facility] Last Admin: 06/08/16 05:52 Dose: 75 mcg Metoprolol Succinate (Toprol Xl) 25 mg PO DAILY [facility] Last Admin: 06/08/16 09:06 Dose: 25 mg Multi-Ingredient Cream (Hydrocerin Cream) 1 applic TOP BID [facility] Last Admin: 06/08/16 09:01 Dose: 1 applic Multivitamins/Minerals (Therapeutic-M Tab) 1 tab PO DAILY [facility] Last Admin: 06/08/16 09:05 Dose: 1 tab Oxycodone/Acetaminophen (Percocet 5/325 Mg Tab) 1 tab PO Q4 PRN PRN Reason: Pain, moderate (4-7) Stop: 06/11/16 10:29 Oxycodone/Acetaminophen (Percocet 5/325 Mg Tab) 2 tab PO Q4 PRN PRN Reason: Pain, severe (8-10) Stop: 06/11/16 10:31 Pantoprazole Sodium (Protonix Ec Tab) 40 mg PO DAILY [facility] Last Admin: 06/08/16 09:04 Dose: 40 mg Prednisone (Prednisone Tab) 5 mg PO TID [facility] Last Admin: 06/08/16 09:03 Dose: 5 mg Fluticasone/Salmeterol (Advair Diskus 250/50) 1 puff IH Q12 [facility] Last Admin: 06/08/16 08:54 Dose: 1 puff Senna/Docusate Sodium (Senokot S 50 Mg-8.6 Mg) 1 tab PO HS [facility] Theophylline (Maximiliano-24) 200 mg PO Q12 [facility] Last Admin: 06/08/16 09:05 Dose: 200 mg Tiotropium [place] (Spiriva) 18 mcg INH DAILY [facility] Last Admin: 06/08/16 09:05 Dose: 18 mcg Verapamil HCl (Calan Tab) 80 mg PO TID [facility] Last Admin: 06/08/16 08:57 Dose: 80 mg - Labs Labs: 06/08/16 04:50 06/08/16 04:50 PT 11.0 SECONDS (9.6-11.2) 06/03/16 22:33 INR 1.06 (0.92-1.08) 06/03/16 22:33 APTT 27.5 SECONDS (23.3-32.5) 06/03/16 22:33 Assessment and Plan (1) Acute bronchitis with chronic obstructive pulmonary disease (COPD) Status: Acute (2) Hyperthyroidism Status: Chronic (3) Abscess Status: Acute
--- NOTE | 2016-06-08 11:50 | CP.PCM.PN ---
Subjective - Date & Time of Evaluation Date of Evaluation: 06/08/16 Time of Evaluation: 18:00 - Subjective Subjective: Patient was seen and evaluated today.Still complaining of right cheek pain , foul smell . Her breathing is at her baseline. Hemodynamically stable, afebrile evaluated with maxillofacial surgeon. Will need I& D of abscess Objective - Vital Signs/Intake and Output Vital Signs (last 24 hours): Temp Pulse Resp BP Pulse Ox 98.0 F 102 H 20 116/70 96 06/08/16 07:48 06/08/16 09:06 06/08/16 07:48 06/08/16 09:06 06/08/16 07:48 Intake and Output: 06/08/16 06/08/16 06:59 18:59 Intake Total 1500 Output Total 900 Balance 600 - Medications Medications: Current Medications Acetylcysteine (Mucomyst 10% 4ml) 2 ml IH RBID [facility] Last Admin: 06/08/16 08:04 Dose: 2 ml Albuterol Sulfate (Albuterol 0.083% Inhal Aby (2.5 Mg/3 Ml) Ud) 2.5 mg INH RQ4 PRN PRN Reason: Shortness of Breath Last Admin: 06/08/16 08:04 Dose: 2.5 mg Anastrozole (Arimidex 1 Mg Tab) 1 mg PO DAILY [facility] Last Admin: 06/08/16 08:56 Dose: 1 mg Aspirin (Ecotrin) 81 mg PO DAILY [facility] Last Admin: 06/08/16 09:00 Dose: 81 mg Baclofen (Lioresal) 10 mg PO HS [facility] Last Admin: 06/07/16 21:22 Dose: 10 mg Enoxaparin Sodium (Lovenox) 40 mg SC DAILY [facility] PRN Reason: Protocol Last Admin: 06/08/16 09:02 Dose: 40 mg Gabapentin (Neurontin) 600 mg PO TID [facility] Last Admin: 06/08/16 09:03 Dose: 600 mg Clindamycin Phosphate 600 mg/ (Sodium Chloride) 104 mls @ 104 mls/hr IVPB Q8 [facility] Last Admin: 06/08/16 09:07 Dose: 104 mls/hr Piperacillin Sod/Tazobactam (Sod 3.375 gm/ Sodium Chloride) 100 mls @ 100 mls/ hr IVPB Q8H [facility] Last Admin: 06/08/16 10:42 Dose: 100 mls/hr Lactobacillus Acidophilus (Bacid Acidophilus) 1 cap PO BID [facility] Last Admin: 06/08/16 09:07 Dose: 1 cap Levothyroxine Sodium (Synthroid) 75 mcg PO 0630 [facility] Last Admin: 06/08/16 05:52 Dose: 75 mcg Metoprolol Succinate (Toprol Xl) 25 mg PO DAILY [facility] Last Admin: 06/08/16 09:06 Dose: 25 mg Multi-Ingredient Cream (Hydrocerin Cream) 1 applic TOP BID [facility] Last Admin: 06/08/16 09:01 Dose: 1 applic Multivitamins/Minerals (Therapeutic-M Tab) 1 tab PO DAILY [facility] Last Admin: 06/08/16 09:05 Dose: 1 tab Oxycodone/Acetaminophen (Percocet 5/325 Mg Tab) 1 tab PO Q4 PRN PRN Reason: Pain, moderate (4-7) Stop: 06/11/16 10:29 Oxycodone/Acetaminophen (Percocet 5/325 Mg Tab) 2 tab PO Q4 PRN PRN Reason: Pain, severe (8-10) Stop: 06/11/16 10:31 Pantoprazole Sodium (Protonix Ec Tab) 40 mg PO DAILY [facility] Last Admin: 06/08/16 09:04 Dose: 40 mg Prednisone (Prednisone Tab) 5 mg PO TID [facility] Last Admin: 06/08/16 09:03 Dose: 5 mg Fluticasone/Salmeterol (Advair Diskus 250/50) 1 puff IH Q12 [facility] Last Admin: 06/08/16 08:54 Dose: 1 puff Senna/Docusate Sodium (Senokot S 50 Mg-8.6 Mg) 1 tab PO HS [facility] Theophylline (Maximiliano-24) 200 mg PO Q12 [facility] Last Admin: 06/08/16 09:05 Dose: 200 mg Tiotropium [place] (Spiriva) 18 mcg INH DAILY [facility] Last Admin: 06/08/16 09:05 Dose: 18 mcg Verapamil HCl (Calan Tab) 80 mg PO TID [facility] Last Admin: 06/08/16 08:57 Dose: 80 mg - Labs Labs: 06/08/16 04:50 06/08/16 04:50 PT 11.0 SECONDS (9.6-11.2) 06/03/16 22:33 INR 1.06 (0.92-1.08) 06/03/16 22:33 APTT 27.5 SECONDS (23.3-32.5) 06/03/16 22:33 - Constitutional Appears: Non-toxic, No Acute Distress, Cachectic, Chronically Ill - Head Exam Additional comments: swelling to right cheek extending to submandibular are, tender on palpation , soft with fluctuation purulent discharge seen on inner becal mucosa - Eye Exam Eye Exam: EOMI, PERRL Pupil Exam: NORMAL ACCOMODATION - ENT Exam ENT Exam: Mucous Membranes Moist Additional comments: right inner bucal mucosa purulent discharge - Neck Exam Neck Exam: Lymphadenopathy (right submandibular ), Tenderness - Respiratory Exam Respiratory Exam: Rhonchi (bilaterally ). absent: Wheezes - Cardiovascular Exam Cardiovascular Exam: REGULAR RHYTHM, RRR, +S1, +S2. absent: JVD - GI/Abdominal Exam GI & Abdominal Exam: Soft, Normal Bowel Sounds. absent: Distended, Tenderness, Rebound - Rectal Exam Rectal Exam: Deferred - Extremities Exam Extremities Exam: Pedal Edema (1 +). absent: Calf Tenderness Additional comments: RUE lymphedema - Back Exam Back Exam: NORMAL INSPECTION - Neurological Exam Neurological Exam: Alert, Awake, CN II-XII Intact, Oriented x3 - Psychiatric Exam Psychiatric exam: Normal Affect - Skin Skin Exam: Dry, Pallor, Warm Assessment and Plan - Assessment and Plan (Free Text) Assessment: 66 y/o female PMH COPD, bilateral breast CA s/p chemo and radiation 8 years ago with bone mets to shoulder (s/p humerus resection), HTN, hyperthyroidism presented with 2 week history of worsening bilateral lower extremity swelling and weakness, unable to get herself up to her walker. Patient has mild dyspnea at baseline. She also noted to have right facial swelling for almost 2 weeks being treated with Po antibiotics as out patient. Patient admitted for generalized weakness , Hyponatremia and facial abscess. She was started on IV Clinda and Zosyn for facial abscess and lasix Iv with fluid restriction for LE edema . At present she is afebrile with WBC 4.[address] showed possible abscess accumulation and patient has purulent discharge on inner buccal mucosa. Evaluated by maxillofacial surgeon today and scheduled for I& d in OR tomorrow @ 7 PM 1. Facial abscess Patient is afebrile WBC 4.[address] showed :Large enhancing wall collection seen around the mid and upper right mandibular ramus and mandibular neck extending anteriorly and seen medial and lateral to the right zygomatic arch as described above. This collection contains foci of air. The density and the appearance of this collection suggestive of abscess formation. The collection is seen anterior to the right parotid gland and extending medially to the posterior right oral cavity. [id number] right maxillary sinus mucosal thickening and small air-fluid level. Partial opacification of both mastoids suggestive of mastoiditis. ID on conssult Continue Clindamycin and Zosyn IV Evaluated by maxillofacial surgeon Dr. Briscoe . patient will need I & D. Scheduled for tomorrow @ 7 PM 2. Bilateral LE edema and weakness, likely CHF exacerbation with diastolic dysfx, preserved EF Started lasix 40 mg IV q12 and fluid restriction Breathing is improved, edema also improving last echo 06/2015 NORMAL EF, +MR +diastolic dysfunction PT eval appreciated . patient will benefit from TAMARA Podiatry consult for dorsum pain and wound consult for LE abrasions appreciated 3.Hypokalemia resolved Most likely diuretic induced 4.Hyponatremia most likely secondary to solute depletion and infection Continue fluid restriction 5.Acute bronchitis and COPD improving dyspnea cont Duonebs, theophylline , spiriva, Advair cont prednisone 5mg po daily Dr. Benz consult appreciated and following 6.Hx breast ca, bilateral stable continue arimidex 7.Hypertension on the low side Hold BP meds if SBpo < 100 8. Hypothyroidism patient has history of hyperthyroidism and was on Methimazole. Now patient has developed hypothyroidism TSH 23 Endo consulted D/c methimazole and started Synthroid 9. Anemia Most likely chronic monitor 10.DVT ppx lovenox
--- NOTE | 2016-06-08 16:57 | PN ---
DATE: 06/08/2016 ROOM: 404 SUBJECTIVE: This is a 66-year-old female with known history of longstanding hyperthyroidism presenti ng here with congestive heart failure and supervening acute exacerbation of COPD and is now also tyrell byrne followed closely for metabolic management with moderate hypothyroidism as noted thereof. She is cu rrently on a low-dose oral levothyroxine therapy given as 75 mcg once daily in the morning as ordered . She is currently also on IV antibiotics as given. Her latest chemistries include a BUN of 10, sod ium 129, potassium 3.5, chloride 94, CO2 32, glucose 77, and creatinine 0.4. Her latest thyroid stud y showed a total T4 of 1.08 with a free T4 of 0.13 and a TSH of 23.10. So at this time, we will cont inue the same levothyroxine dosing given as 75 mcg daily and we will titrate incrementally as indicat ed to optimize metabolic control. This is only a temporary dosing regimen just for inpatient use and upon discharge, we will restart her Tapazole medications as indicated. We will follow. Polly Vu MD cc: [id number] TT: 06/08/2016 16:56:11 Confirmation # [id number] Dictation # [id number] cathy
--- NOTE | 2016-06-08 19:49 | CP.PCM.PN ---
Subjective - Date & Time of Evaluation Date of Evaluation: 06/08/16 Time of Evaluation: 18:46 - Subjective Subjective: ID NOTE WBC IS NOW 4.6 PATIENT STILL HAVING PAIN AND DIFFICULTY OPENING HER MOUTH NO MICRO IS POSITIVE AWAIT ORAL SURGERY EVALUATION CONTINUE CLINDAMYCIN/ZOSYN Objective - Vital Signs/Intake and Output Vital Signs (last 24 hours): Temp Pulse Resp BP Pulse Ox 97.4 F L 97 H 20 100/61 96 06/08/16 19:41 06/08/16 19:41 06/08/16 19:41 06/08/16 19:41 06/08/16 19:41 Intake and Output: 06/08/16 06/09/16 18:59 06:59 Intake Total 1260 Balance 1260 - Medications Medications: Current Medications Acetylcysteine (Mucomyst 10% 4ml) 2 ml IH RBID [facility] Last Admin: 06/08/16 08:04 Dose: 2 ml Albuterol Sulfate (Albuterol 0.083% Inhal Aby (2.5 Mg/3 Ml) Ud) 2.5 mg INH RQ4 PRN PRN Reason: Shortness of Breath Last Admin: 06/08/16 08:04 Dose: 2.5 mg Anastrozole (Arimidex 1 Mg Tab) 1 mg PO DAILY [facility] Last Admin: 06/08/16 08:56 Dose: 1 mg Aspirin (Ecotrin) 81 mg PO DAILY [facility] Last Admin: 06/08/16 09:00 Dose: 81 mg Baclofen (Lioresal) 10 mg PO HS [facility] Last Admin: 06/07/16 21:22 Dose: 10 mg Enoxaparin Sodium (Lovenox) 40 mg SC DAILY [facility] PRN Reason: Protocol Last Admin: 06/08/16 09:02 Dose: 40 mg Gabapentin (Neurontin) 600 mg PO TID [facility] Last Admin: 06/08/16 17:12 Dose: 600 mg Clindamycin Phosphate 600 mg/ (Sodium Chloride) 104 mls @ 104 mls/hr IVPB Q8 [facility] Last Admin: 06/08/16 17:17 Dose: 104 mls/hr Piperacillin Sod/Tazobactam (Sod 3.375 gm/ Sodium Chloride) 100 mls @ 100 mls/ hr IVPB Q8H [facility] Last Admin: 06/08/16 18:34 Dose: 100 mls/hr Lactobacillus Acidophilus (Bacid Acidophilus) 1 cap PO BID [facility] Last Admin: 06/08/16 17:18 Dose: 1 cap Levothyroxine Sodium (Synthroid) 75 mcg PO 0630 [facility] Last Admin: 06/08/16 05:52 Dose: 75 mcg Metoprolol Succinate (Toprol Xl) 25 mg PO DAILY [facility] Last Admin: 06/08/16 09:06 Dose: 25 mg Multi-Ingredient Cream (Hydrocerin Cream) 1 applic TOP BID [facility] Last Admin: 06/08/16 17:12 Dose: 1 applic Multivitamins/Minerals (Therapeutic-M Tab) 1 tab PO DAILY [facility] Last Admin: 06/08/16 09:05 Dose: 1 tab Oxycodone/Acetaminophen (Percocet 5/325 Mg Tab) 1 tab PO Q4 PRN PRN Reason: Pain, moderate (4-7) Stop: 06/11/16 10:29 Last Admin: 06/08/16 14:15 Dose: 1 tab Oxycodone/Acetaminophen (Percocet 5/325 Mg Tab) 2 tab PO Q4 PRN PRN Reason: Pain, severe (8-10) Stop: 06/11/16 10:31 Pantoprazole Sodium (Protonix Ec Tab) 40 mg PO DAILY [facility] Last Admin: 06/08/16 09:04 Dose: 40 mg Prednisone (Prednisone Tab) 5 mg PO TID [facility] Last Admin: 06/08/16 17:13 Dose: 5 mg Fluticasone/Salmeterol (Advair Diskus 250/50) 1 puff IH Q12 [facility] Last Admin: 06/08/16 08:54 Dose: 1 puff Senna/Docusate Sodium (Senokot S 50 Mg-8.6 Mg) 1 tab PO HS [facility] Theophylline (Maximiliano-24) 200 mg PO Q12 [facility] Last Admin: 06/08/16 09:05 Dose: 200 mg Tiotropium [place] (Spiriva) 18 mcg INH DAILY [facility] Last Admin: 06/08/16 09:05 Dose: 18 mcg Verapamil HCl (Calan Tab) 80 mg PO TID [facility] Last Admin: 06/08/16 17:11 Dose: 80 mg - Labs Labs: 06/08/16 04:50 06/08/16 04:50 PT 11.0 SECONDS (9.6-11.2) 06/03/16 22:33 INR 1.06 (0.92-1.08) 06/03/16 22:33 APTT 27.5 SECONDS (23.3-32.5) 06/03/16 22:33
[2016-06-08 20:03] LABS: TSI 110 % baseline (<140)
[2016-06-08] MEDS: Docusate-Senna 50 mg-8.6 mg Tab PO SCH (21:18)
[2016-06-09] MEDS: Clindamycin 600 MG in Sodium Chloride 0.9% 100 ML IVPB SCH ×3 (00:35→16:05)
[2016-06-09] MEDS: Piperacillin/Tazobact 3.375 GM in Sodium Chloride 0.9% 100 ML IVPB SCH ×3 (02:03→18:00)
[2016-06-09 05:10] LABS: HEMATOCRIT 29.4 % (34.0-47.0); MEAN CELL VOLUME 67.4 fl (81.0-99.0); MEAN CORPUSCULAR HEMOGLOBIN 19.7 pg (27.0-31.0); MEAN CORPUSCULAR HGB CONC 29.2 g/dL (33.0-37.0); RED CELL DISTRIBUTION WIDTH 24.1 % (11.5-14.5)
[2016-06-09 05:19] LABS: BLOOD UREA NITROGEN 9 mg/dl (7-17); CALCIUM 7.5 mg/dL (8.4-10.2); CARBON DIOXIDE 32 mmol/L (22-30); CHLORIDE 95 mmol/L (98-107); GFR AFRICAN-AMERICAN > 60; GLUCOSE,RANDOM 90 mg/dL (65-105); POTASSIUM 3.7 MMOL/L (3.6-5.0); SODIUM 129 mmol/l (132-148)
[2016-06-09] MEDS: Levothyroxine 75 MCG TAB PO SCH (06:02)
[2016-06-09] MEDS: Fluticasone-Salmeterol 250-50mcg Diskus IH SCH ×2 (08:31→21:53)
[2016-06-09] MEDS: Lactobacillus Acidophilus 500 MU Cap PO SCH (08:32)
[2016-06-09] MEDS: Hydrocerin CREAM TOP SCH ×2 (08:33→16:06)
[2016-06-09] MEDS: Albuterol 0.083% Inhal Sol (2.5 mg/3 mL) UD INH PRN (08:34)
[2016-06-09] MEDS: Pantoprazole 40 mg EC Tab PO SCH (08:34)
[2016-06-09] MEDS: Acetylcysteine 10% 4 ML IH SCH ×2 (08:34→20:35)
[2016-06-09] MEDS: Tiotropium 18 mcg Cap For Inhalation INH SCH (08:34)
[2016-06-09] MEDS: Metoprolol Succinate 25 mg XL Tab PO SCH (08:35)
[2016-06-09] MEDS: Multivitamin With Minerals Tab PO SCH (08:35)
--- NOTE | 2016-06-09 11:35 | PN ---
DATE: 06/09/2016 LOCATION: Room 404. This is a 66-year-old female with recent congestive heart failure and supervening acute exacerbation of COPD now being followed closely for metabolic management. She has longstanding history of hyperth yroidism on Tapazole medication and has been metabolically stable on that medication as noted. Howev er, she presented here with early hypothyroidism and has been started on levothyroxine at a low dose of 75 mcg daily. We will continue this aforementioned medication for the inpatient thyroid managemen t. She is cleared from the endocrine viewpoint at this time for a surgical procedure as scheduled to day. We will obtain serial chemistries and serial thyroid studies and adjust the dose regimen accord ingly. The low normal T4 was because of the very low albumin stores which causes a falsely low thyro xine binding globulin or TBGs. So at this point, as mentioned above, she is cleared from the endocri ne viewpoint for a surgical procedure today. Polly Vu MD cc: [id number] TT: 06/09/2016 11:34:56 Confirmation # [id number] Dictation # [id number] tn
--- NOTE | 2016-06-09 12:56 | CP.PCM.PN ---
Subjective - Date & Time of Evaluation Date of Evaluation: 06/09/16 Time of Evaluation: 11:30 - Subjective Subjective: No fever still with right facial/maxillary area pain , swelling, and tenderness no SOB no CP no abd pain trace pedal edema Objective - Vital Signs/Intake and Output Vital Signs (last 24 hours): Temp Pulse Resp BP Pulse Ox 98.1 F 99 H 18 107/60 98 06/09/16 12:41 06/09/16 12:41 06/09/16 12:41 06/09/16 12:41 06/09/16 12:41 Intake and Output: 06/09/16 06/09/16 06:59 18:59 Output Total 350 Balance -350 - Medications Medications: Current Medications Acetylcysteine (Mucomyst 10% 4ml) 2 ml IH RBID [facility] Last Admin: 06/09/16 08:34 Dose: 2 ml Albuterol Sulfate (Albuterol 0.083% Inhal Aby (2.5 Mg/3 Ml) Ud) 2.5 mg INH RQ4 PRN PRN Reason: Shortness of Breath Last Admin: 06/09/16 08:34 Dose: 2.5 mg Anastrozole (Arimidex 1 Mg Tab) 1 mg PO DAILY [facility] Last Admin: 06/09/16 08:31 Dose: Not Given Aspirin (Ecotrin) 81 mg PO DAILY [facility] Last Admin: 06/09/16 08:33 Dose: Not Given Baclofen (Lioresal) 10 mg PO HS [facility] Last Admin: 06/08/16 21:18 Dose: 10 mg Enoxaparin Sodium (Lovenox) 40 mg SC DAILY [facility] PRN Reason: Protocol Last Admin: 06/08/16 09:02 Dose: 40 mg Gabapentin (Neurontin) 600 mg PO TID [facility] Last Admin: 06/09/16 08:34 Dose: Not Given Clindamycin Phosphate 600 mg/ (Sodium Chloride) 104 mls @ 104 mls/hr IVPB Q8 [facility] Last Admin: 06/09/16 08:32 Dose: 104 mls/hr Piperacillin Sod/Tazobactam (Sod 3.375 gm/ Sodium Chloride) 100 mls @ 100 mls/ hr IVPB Q8H [facility] Last Admin: 06/09/16 09:41 Dose: 100 mls/hr Lactobacillus Acidophilus (Bacid Acidophilus) 1 cap PO BID [facility] Last Admin: 06/09/16 08:32 Dose: Not Given Levothyroxine Sodium (Synthroid) 75 mcg PO 0630 [facility] Last Admin: 06/09/16 06:02 Dose: Not Given Metoprolol Succinate (Toprol Xl) 25 mg PO DAILY [facility] Last Admin: 06/09/16 08:35 Dose: Not Given Multi-Ingredient Cream (Hydrocerin Cream) 1 applic TOP BID [facility] Last Admin: 06/09/16 08:33 Dose: 1 applic Multivitamins/Minerals (Therapeutic-M Tab) 1 tab PO DAILY [facility] Last Admin: 06/09/16 08:35 Dose: Not Given Oxycodone/Acetaminophen (Percocet 5/325 Mg Tab) 1 tab PO Q4 PRN PRN Reason: Pain, moderate (4-7) Stop: 06/11/16 10:29 Last Admin: 06/08/16 14:15 Dose: 1 tab Oxycodone/Acetaminophen (Percocet 5/325 Mg Tab) 2 tab PO Q4 PRN PRN Reason: Pain, severe (8-10) Stop: 06/11/16 10:31 Pantoprazole Sodium (Protonix Ec Tab) 40 mg PO DAILY [facility] Last Admin: 06/09/16 08:34 Dose: Not Given Prednisone (Prednisone Tab) 5 mg PO TID [facility] Last Admin: 06/09/16 08:34 Dose: Not Given Fluticasone/Salmeterol (Advair Diskus 250/50) 1 puff IH Q12 [facility] Last Admin: 06/09/16 08:31 Dose: 1 puff Senna/Docusate Sodium (Senokot S 50 Mg-8.6 Mg) 1 tab PO HS [facility] Last Admin: 06/08/16 21:18 Dose: 1 tab Theophylline (Maximiliano-24) 200 mg PO Q12 [facility] Last Admin: 06/08/16 09:05 Dose: 200 mg Tiotropium [place] (Spiriva) 18 mcg INH DAILY [facility] Last Admin: 06/09/16 08:34 Dose: 18 mcg Verapamil HCl (Calan Tab) 80 mg PO TID [facility] Last Admin: 06/09/16 08:32 Dose: Not Given - Labs Labs: 06/09/16 04:10 06/09/16 04:10 PT 11.0 SECONDS (9.6-11.2) 06/09/16 04:10 INR 1.06 (0.92-1.08) 06/09/16 04:10 APTT 27.5 SECONDS (23.3-32.5) 06/03/16 22:33 - Constitutional Appears: No Acute Distress, Chronically Ill - Head Exam Head Exam: NORMAL INSPECTION, NORMOCEPHALIC - Eye Exam Eye Exam: EOMI, Normal appearance Pupil Exam: NORMAL ACCOMODATION - ENT Exam ENT Exam: Mucous Membranes Dry, Normal External Ear Exam Additional comments: right facila swelling, fluctuant abscess, tender, foul smelling discharge - Neck Exam Neck Exam: Full ROM. absent: Meningismus - Respiratory Exam Respiratory Exam: Rales, Rhonchi. absent: Wheezes, Respiratory Distress - Cardiovascular Exam Cardiovascular Exam: REGULAR RHYTHM, +S1, +S2 - GI/Abdominal Exam GI & Abdominal Exam: Soft, Normal Bowel Sounds. absent: Tenderness - Extremities Exam Extremities Exam: Normal Capillary Refill, Pedal Edema Additional comments: abrasions LE - Back Exam Back Exam: absent: CVA tenderness (L), CVA tenderness (R) - Neurological Exam Neurological Exam: Alert, Awake, CN II-XII Intact, Oriented x3 - Psychiatric Exam Psychiatric exam: Normal Affect, Normal Mood - Skin Skin Exam: Dry, Normal Color, Warm Assessment and Plan - Assessment and Plan (Free Text) Assessment: 66 y/o female PMH COPD, bilateral breast CA s/p chemo and radiation 8 years ago with bone mets to shoulder (s/p humerus resection), HTN, hyperthyroidism presented with 2 week history of worsening bilateral lower extremity swelling and weakness, unable to get herself up to her walker. Patient has mild dyspnea at baseline. She also noted to have right facial swelling for almost 2 weeks being treated with Po antibiotics as out patient. Patient admitted for generalized weakness , Hyponatremia and facial abscess. She was started on IV Clinda and Zosyn for facial abscess and lasix Iv with fluid restriction for LE edema . At present she is afebrile, Maxillofacial Ct showed possible abscess accumulation and patient has purulent discharge from an opening in oral mucosa. Evaluated by maxillofacial surgeon and scheduled for surgery today. 1. Facial abscess Patient is afebrile Maxillofacial Ct showed :Large enhancing wall collection seen around the mid and upper right mandibular ramus and mandibular neck extending anteriorly and seen medial and lateral to the right zygomatic arch as described above. This collection contains foci of air. The density and the appearance of this collection suggestive of abscess formation. The collection is seen anterior to the right parotid gland and extending medially to the posterior right oral cavity. [id number] right maxillary sinus mucosal thickening and small air-fluid level. Partial opacification of both mastoids suggestive of mastoiditis. ID on consult Continue Clindamycin and Zosyn IV Evaluated by maxillofacial surgeon Dr. Ambrose- plan for surgery today. 2. Bilateral LE edema and weakness, likely CHF exacerbation with diastolic dysfx, preserved EF Lasix prn Breathing is improved, edema also improving last echo 06/2015 NORMAL EF, +MR +diastolic dysfunction PT eval appreciated . patient will benefit from TAMARA Podiatry consult for dorsum pain and wound consult for LE abrasions appreciated 3.Hypokalemia resolved Most likely diuretic induced 4.Hyponatremia most likely secondary to solute depletion and infection Continue fluid restriction 5.Acute bronchitis and COPD improving dyspnea cont Duonebs, theophylline , spiriva, Advair cont prednisone 5mg po daily Dr. Benz consult appreciated and following 6.Hx breast ca, bilateral stable continue arimidex 7.Hypertension on the low side Hold BP meds if SBpo < 100 8. Hypothyroidism patient has history of hyperthyroidism and was on Methimazole. Now patient has developed hypothyroidism TSH 23 Endo consulted D/c methimazole and started Synthroid 9. Anemia Most likely chronic monitor 10.DVT ppx lovenox
[2016-06-09] MEDS ORDERED: Midazolam 2 MG/2 ML VIAL ONE (18:13)
[2016-06-09] MEDS ORDERED: Propofol 10 mg/ml Inj (20 ML) ONE (18:13)
[2016-06-09] MEDS ORDERED: Succinylcholine 200 mg/10 ml Inj IV ONE (18:14)
[2016-06-09] MEDS ORDERED: Lidocaine 4% (Laryng-O-Jet) Kit MM ONE (18:14)
[2016-06-09] MEDS ORDERED: Lidocaine Hydrochloride 5 ML INJ ONE (18:14)
[2016-06-09] MEDS ORDERED: Lidocaine 2% Jelly (5 ml) TOP ONE (18:22)
[2016-06-09] MEDS ORDERED: Lidocaine 2% w Epi 1:100,000 Inj IJ ONE (18:41)
[2016-06-09] MEDS ORDERED: Lidocaine 2% Inj (20ml) IJ ONE (19:26)
[2016-06-09] MEDS ORDERED: Sodium Chloride 0.9% 1,000 ML IV ONE (20:00)
[2016-06-09] MEDS ORDERED: Sodium Chloride 0.9% 1,000 ML IV SCH (20:15)
[2016-06-09] MEDS: Docusate-Senna 50 mg-8.6 mg Tab PO SCH (21:53)
[2016-06-10] MEDS: Clindamycin 600 MG in Sodium Chloride 0.9% 100 ML IVPB SCH ×3 (00:33→18:04)
[2016-06-10] MEDS: Albuterol 0.083% Inhal Sol (2.5 mg/3 mL) UD INH PRN ×4 (01:11→20:10)
[2016-06-10] MEDS: Piperacillin/Tazobact 3.375 GM in Sodium Chloride 0.9% 100 ML IVPB SCH ×3 (02:23→18:52)
[2016-06-10 05:39] LABS: BASO % 0.3 % (0.0-2.0); EOS % 0.3 % (0.0-4.0); HEMATOCRIT 28.8 % (34.0-47.0); LYMPH # 0.3 K/uL (1.0-4.3); LYMPH % 3.7 % (20.0-40.0); MEAN CELL VOLUME 67.5 fl (81.0-99.0); MEAN CORPUSCULAR HEMOGLOBIN 19.3 pg (27.0-31.0); MEAN CORPUSCULAR HGB CONC 28.6 g/dL (33.0-37.0); MEAN PLATELET VOLUME 8.2 fl (7.2-11.7); MONO # 0.7 K/uL (0.0-0.8); MONO % 9.1 % (0.0-10.0); NEUT # 6.4 K/uL (1.8-7.0); NEUT % 86.6 % (50.0-75.0); NRBC % 0.1 % (0.0-0.0); PLATELET COUNT 258 K/uL (130-400); RED CELL DISTRIBUTION WIDTH 23.9 % (11.5-14.5); WHITE BLOOD COUNT 7.4 K/uL (4.8-10.8)
[2016-06-10] MEDS: Levothyroxine 75 MCG TAB PO SCH (06:14)
[2016-06-10 06:32] LABS: ALB/GLOB RATIO 0.9 (1.0-2.1); ALKALINE PHOSPHATASE 97 U/L (38-126); ALT/SGPT 20 U/L (9-52); AST/SGOT 14 U/L (14-36); BILIRUBIN,TOTAL 0.3 mg/dl (0.2-1.3); BLOOD UREA NITROGEN 9 mg/dl (7-17); CALCIUM 7.4 mg/dL (8.4-10.2); CARBON DIOXIDE 31 mmol/L (22-30); CHLORIDE 95 mmol/L (98-107); GFR AFRICAN-AMERICAN > 60; GLUCOSE,RANDOM 74 mg/dL (65-105); POTASSIUM 2.6 MMOL/L (3.6-5.0); SODIUM 132 mmol/l (132-148); TOTAL PROTEIN 4.4 G/DL (6.3-8.2)
[2016-06-10 06:47] LABS: T4 1.57 ug/dl (5.5-11.0)
[2016-06-10] MEDS: Acetylcysteine 10% 4 ML IH SCH ×2 (07:55→20:05)
[2016-06-10] MEDS: Fluticasone-Salmeterol 250-50mcg Diskus IH SCH ×2 (08:44→21:16)
[2016-06-10] MEDS: Hydrocerin CREAM TOP SCH ×2 (08:58→17:13)
[2016-06-10] MEDS: Pantoprazole 40 mg EC Tab PO SCH (09:01)
[2016-06-10] MEDS: Tiotropium 18 mcg Cap For Inhalation INH SCH (09:03)
[2016-06-10] MEDS: Multivitamin With Minerals Tab PO SCH (09:06)
[2016-06-10] MEDS: Metoprolol Succinate 25 mg XL Tab PO SCH (09:06)
[2016-06-10] MEDS: Lactobacillus Acidophilus 500 MU Cap PO SCH ×2 (09:17→17:11)
[2016-06-10] MEDS ORDERED: Potassium Chloride 40 mEq/30 ml LIQ UD PO ONE (09:32)
--- NOTE | 2016-06-10 09:39 | CP.PCM.PN ---
Subjective - Date & Time of Evaluation Date of Evaluation: 06/10/16 Time of Evaluation: 09:38 - Subjective Subjective: Still complains of facial discomfort. Swelling appears to be slightly less, fluctuance ++. Purulent drainage in the oral cavity ++. Theophylline on hold (blood level borderline high). Congested cough noted to be non-productive. On aerosol therapy with bronchodilators and mucolytic. Has flutter valve device for CPT. Coarse rhonchi auscultated bilaterally with decreased breath sounds. Expiratory phase remains prolonged without audible wheezing. Will maintain current medical regimen. Objective - Vital Signs/Intake and Output Vital Signs (last 24 hours): Temp Pulse Resp BP Pulse Ox 97.4 F L 89 18 109/59 L 95 06/10/16 08:20 06/10/16 09:06 06/10/16 08:20 06/10/16 09:06 06/10/16 08:20 Intake and Output: 06/09/16 06/10/16 23:59 11:59 Intake Total 1010 380 Output Total 650 500 Balance 360 -120 - Medications Medications: Current Medications Acetylcysteine (Mucomyst 10% 4ml) 2 ml IH RBID [facility] Last Admin: 06/10/16 07:55 Dose: 2 ml Albuterol Sulfate (Albuterol 0.083% Inhal Aby (2.5 Mg/3 Ml) Ud) 2.5 mg INH RQ4 PRN PRN Reason: Shortness of Breath Last Admin: 06/10/16 07:55 Dose: 2.5 mg Anastrozole (Arimidex 1 Mg Tab) 1 mg PO DAILY [facility] Last Admin: 06/10/16 08:53 Dose: 1 mg Aspirin (Ecotrin) 81 mg PO DAILY [facility] Last Admin: 06/10/16 08:58 Dose: 81 mg Baclofen (Lioresal) 10 mg PO HS [facility] Last Admin: 06/09/16 21:54 Dose: 10 mg Enoxaparin Sodium (Lovenox) 40 mg SC DAILY [facility] PRN Reason: Protocol Last Admin: 06/08/16 09:02 Dose: 40 mg Gabapentin (Neurontin) 600 mg PO TID [facility] Last Admin: 06/10/16 08:59 Dose: 600 mg Clindamycin Phosphate 600 mg/ (Sodium Chloride) 104 mls @ 104 mls/hr IVPB Q8 [facility] Last Admin: 06/10/16 09:14 Dose: 104 mls/hr Piperacillin Sod/Tazobactam (Sod 3.375 gm/ Sodium Chloride) 100 mls @ 100 mls/ hr IVPB Q8H [facility] Last Admin: 06/10/16 02:23 Dose: 100 mls/hr Sodium Chloride (Sodium Chloride 0.9%) 1,000 mls @ 100 mls/hr IV .Q10H [facility] Potassium Chloride (Potassium Chloride 10 Meq/100 Ml) 100 mls @ 100 mls/hr IVPB Q1 [facility] Stop: 06/10/16 13:59 Lactobacillus Acidophilus (Bacid Acidophilus) 1 cap PO BID [facility] Last Admin: 06/10/16 09:17 Dose: 1 cap Levothyroxine Sodium (Synthroid) 75 mcg PO 0630 [facility] Last Admin: 06/10/16 06:14 Dose: 75 mcg Metoprolol Succinate (Toprol Xl) 25 mg PO DAILY [facility] Last Admin: 06/10/16 09:06 Dose: 25 mg Multi-Ingredient Cream (Hydrocerin Cream) 1 applic TOP BID [facility] Last Admin: 06/10/16 08:58 Dose: 1 applic Multivitamins/Minerals (Therapeutic-M Tab) 1 tab PO DAILY [facility] Last Admin: 06/10/16 09:06 Dose: 1 tab Oxycodone/Acetaminophen (Percocet 5/325 Mg Tab) 1 tab PO Q4 PRN PRN Reason: Pain, moderate (4-7) Stop: 06/11/16 10:29 Last Admin: 06/08/16 14:15 Dose: 1 tab Oxycodone/Acetaminophen (Percocet 5/325 Mg Tab) 2 tab PO Q4 PRN PRN Reason: Pain, severe (8-10) Stop: 06/11/16 10:31 Last Admin: 06/10/16 05:07 Dose: 2 tab Pantoprazole Sodium (Protonix Ec Tab) 40 mg PO DAILY [facility] Last Admin: 06/10/16 09:01 Dose: 40 mg Potassium Chloride (Potassium Chloride Oral Soln) 40 meq PO ONCE ONE Stop: 06/10/16 09:33 Prednisone (Prednisone Tab) 5 mg PO TID [facility] Last Admin: 06/10/16 09:00 Dose: 5 mg Fluticasone/Salmeterol (Advair Diskus 250/50) 1 puff IH Q12 [facility] Last Admin: 06/10/16 08:44 Dose: 1 puff Senna/Docusate Sodium (Senokot S 50 Mg-8.6 Mg) 1 tab PO HS [facility] Last Admin: 06/09/16 21:53 Dose: 1 tab Theophylline (Maximiliano-24) 200 mg PO Q12 [facility] Last Admin: 06/08/16 09:05 Dose: 200 mg Tiotropium [place] (Spiriva) 18 mcg INH DAILY [facility] Last Admin: 06/10/16 09:03 Dose: 18 mcg Verapamil HCl (Calan Tab) 80 mg PO TID [facility] Last Admin: 06/10/16 08:55 Dose: 80 mg - Labs Labs: 06/10/16 04:10 06/10/16 04:10 PT 11.0 SECONDS (9.6-11.2) 06/09/16 04:10 INR 1.06 (0.92-1.08) 06/09/16 04:10 APTT 27.5 SECONDS (23.3-32.5) 06/03/16 22:33 Assessment and Plan (1) Acute bronchitis with chronic obstructive pulmonary disease (COPD) Status: Acute (2) Hyperthyroidism Status: Chronic (3) Abscess Status: Acute
[2016-06-10] MEDS ORDERED: Potassium Chloride 20 mEq/15 ml LIQ UD PO ONE (09:45)
[2016-06-10 11:34] LABS: NEUTROPHIL 95 % (42-75); TOTAL CELLS COUNTED 100
--- NOTE | 2016-06-10 11:34 | CP.PCM.PN ---
Subjective - Date & Time of Evaluation Date of Evaluation: 06/10/16 Time of Evaluation: 10:30 - Subjective Subjective: Post op Day 1 Incision and drainag of right mandibular abscess No fever facial swelling and pain better after drainage no CP sl SOB no abd pain Objective - Vital Signs/Intake and Output Vital Signs (last 24 hours): Temp Pulse Resp BP Pulse Ox 97.4 F L 89 18 109/59 L 95 06/10/16 08:20 06/10/16 09:06 06/10/16 08:20 06/10/16 09:06 06/10/16 08:20 Intake and Output: 06/10/16 06/10/16 06:59 18:59 Intake Total 380 Output Total 700 Balance -320 - Medications Medications: Current Medications Acetylcysteine (Mucomyst 10% 4ml) 2 ml IH RBID [facility] Last Admin: 06/10/16 07:55 Dose: 2 ml Albuterol Sulfate (Albuterol 0.083% Inhal Aby (2.5 Mg/3 Ml) Ud) 2.5 mg INH RQ4 PRN PRN Reason: Shortness of Breath Last Admin: 06/10/16 07:55 Dose: 2.5 mg Anastrozole (Arimidex 1 Mg Tab) 1 mg PO DAILY [facility] Last Admin: 06/10/16 08:53 Dose: 1 mg Aspirin (Ecotrin) 81 mg PO DAILY [facility] Last Admin: 06/10/16 08:58 Dose: 81 mg Baclofen (Lioresal) 10 mg PO HS [facility] Last Admin: 06/09/16 21:54 Dose: 10 mg Enoxaparin Sodium (Lovenox) 40 mg SC DAILY [facility] PRN Reason: Protocol Last Admin: 06/08/16 09:02 Dose: 40 mg Gabapentin (Neurontin) 600 mg PO TID [facility] Last Admin: 06/10/16 08:59 Dose: 600 mg Clindamycin Phosphate 600 mg/ (Sodium Chloride) 104 mls @ 104 mls/hr IVPB Q8 [facility] Last Admin: 06/10/16 09:14 Dose: 104 mls/hr Piperacillin Sod/Tazobactam (Sod 3.375 gm/ Sodium Chloride) 100 mls @ 100 mls/ hr IVPB Q8H [facility] Last Admin: 06/10/16 10:35 Dose: 100 mls/hr Sodium Chloride (Sodium Chloride 0.9%) 1,000 mls @ 100 mls/hr IV .Q10H [facility] Potassium Chloride (Potassium Chloride 10 Meq/100 Ml) 100 mls @ 100 mls/hr IVPB Q1 [facility] Stop: 06/10/16 13:59 Lactobacillus Acidophilus (Bacid Acidophilus) 1 cap PO BID [facility] Last Admin: 06/10/16 09:17 Dose: 1 cap Levothyroxine Sodium (Synthroid) 75 mcg PO 0630 [facility] Last Admin: 06/10/16 06:14 Dose: 75 mcg Metoprolol Succinate (Toprol Xl) 25 mg PO DAILY [facility] Last Admin: 06/10/16 09:06 Dose: 25 mg Multi-Ingredient Cream (Hydrocerin Cream) 1 applic TOP BID [facility] Last Admin: 06/10/16 08:58 Dose: 1 applic Multivitamins/Minerals (Therapeutic-M Tab) 1 tab PO DAILY [facility] Last Admin: 06/10/16 09:06 Dose: 1 tab Oxycodone/Acetaminophen (Percocet 5/325 Mg Tab) 1 tab PO Q4 PRN PRN Reason: Pain, moderate (4-7) Stop: 06/11/16 10:29 Last Admin: 06/08/16 14:15 Dose: 1 tab Oxycodone/Acetaminophen (Percocet 5/325 Mg Tab) 2 tab PO Q4 PRN PRN Reason: Pain, severe (8-10) Stop: 06/11/16 10:31 Last Admin: 06/10/16 05:07 Dose: 2 tab Pantoprazole Sodium (Protonix Ec Tab) 40 mg PO DAILY [facility] Last Admin: 06/10/16 09:01 Dose: 40 mg Prednisone (Prednisone Tab) 5 mg PO TID [facility] Last Admin: 06/10/16 09:00 Dose: 5 mg Fluticasone/Salmeterol (Advair Diskus 250/50) 1 puff IH Q12 [facility] Last Admin: 06/10/16 08:44 Dose: 1 puff Senna/Docusate Sodium (Senokot S 50 Mg-8.6 Mg) 1 tab PO HS [facility] Last Admin: 06/09/16 21:53 Dose: 1 tab Theophylline (Maximiliano-24) 200 mg PO Q12 [facility] Last Admin: 06/08/16 09:05 Dose: 200 mg Tiotropium [place] (Spiriva) 18 mcg INH DAILY [facility] Last Admin: 06/10/16 09:03 Dose: 18 mcg Verapamil HCl (Calan Tab) 80 mg PO TID [facility] Last Admin: 06/10/16 08:55 Dose: 80 mg - Labs Labs: 06/10/16 04:10 06/10/16 04:10 PT 11.0 SECONDS (9.6-11.2) 06/09/16 04:10 INR 1.06 (0.92-1.08) 06/09/16 04:10 APTT 27.5 SECONDS (23.3-32.5) 06/03/16 22:33 - Constitutional Appears: No Acute Distress, Chronically Ill - Head Exam Head Exam: NORMAL INSPECTION, NORMOCEPHALIC - Eye Exam Eye Exam: EOMI, Normal appearance Pupil Exam: NORMAL ACCOMODATION - ENT Exam ENT Exam: Mucous Membranes Dry, Normal External Ear Exam Additional comments: right facial swelling, markedly decreased , still with some tenderness - Neck Exam Neck Exam: Full ROM. absent: Meningismus - Respiratory Exam Respiratory Exam: Rales, Rhonchi. absent: Wheezes, Respiratory Distress - Cardiovascular Exam Cardiovascular Exam: REGULAR RHYTHM, +S1, +S2 - GI/Abdominal Exam GI & Abdominal Exam: Soft, Normal Bowel Sounds. absent: Tenderness - Extremities Exam Extremities Exam: Normal Capillary Refill, Pedal Edema Additional comments: abrasions LE - Back Exam Back Exam: absent: CVA tenderness (L), CVA tenderness (R) - Neurological Exam Neurological Exam: Alert, Awake, CN II-XII Intact, Oriented x3 - Psychiatric Exam Psychiatric exam: Normal Affect, Normal Mood - Skin Skin Exam: Dry, Normal Color, Warm Assessment and Plan - Assessment and Plan (Free Text) Assessment: 66 y/o female PMH COPD, bilateral breast CA s/p chemo and radiation 8 years ago with bone mets to shoulder (s/p humerus resection), HTN, hyperthyroidism presented with 2 week history of worsening bilateral lower extremity swelling and weakness, unable to get herself up to her walker. Patient has mild dyspnea at baseline. She also noted to have right facial swelling for almost 2 weeks being treated with Po antibiotics as out patient. Patient admitted for generalized weakness , Hyponatremia and facial abscess. She was started on IV Clinda and Zosyn for facial abscess and lasix Iv with fluid restriction for LE edema . At present she is afebrile, Maxillofacial Ct showed possible abscess accumulation and patient has purulent discharge from an opening in oral mucosa. Evaluated by maxillofacial surgeon and underwent Incision and drainage of abscess. 1. Facial abscess s/p drainage of abscess Patient is afebrile Maxillofacial Ct showed :Large enhancing wall collection seen around the mid and upper right mandibular ramus and mandibular neck extending anteriorly and seen medial and lateral to the right zygomatic arch as described above. This collection contains foci of air. The density and the appearance of this collection suggestive of abscess formation. The collection is seen anterior to the right parotid gland and extending medially to the posterior right oral cavity. [id number] right maxillary sinus mucosal thickening and small air-fluid level. Partial opacification of both mastoids suggestive of mastoiditis. ID on consult: Dr ryan Continue Clindamycin and Zosyn IV OMFS Dr. Ambrose did Incision and drainage on 06/09 2. Bilateral LE edema likely CHF exacerbation with diastolic dysfx, preserved EF Lasix prn Breathing is improved, edema also improving last echo 06/2015 NORMAL EF, +MR +diastolic dysfunction PT eval appreciated . patient will benefit from [facility] Podiatry consult for dorsum pain and wound consult for LE abrasions appreciated 3.Hypokalemia KCl rune and PO Most likely diuretic induced rpt BMP in am 4.Hyponatremia most likely secondary to solute depletion and infection Continue fluid restriction 5.Acute bronchitis and COPD improving dyspnea cont Duonebs, theophylline , spiriva, Advair cont prednisone 5mg po daily Dr. Benz consult appreciated and following 6.Hx breast ca, bilateral stable continue arimidex 7.Hypertension on the low side Hold BP meds if SBpo < 100 8. Hypothyroidism patient has history of hyperthyroidism and was on Methimazole. Now patient has developed hypothyroidism TSH 32 Endo consulted D/c methimazole and started Synthroid 9. Anemia, chronic dis monitor 10.DVT ppx lovenox
[2016-06-10] MEDS: Potassium CL 10mEq/100ml 100 ML IVPB SCH ×4 (12:12→16:49)
[2016-06-10] MEDS: Oxycodone/Acetaminophen 5/325 mg Tab PO PRN ×2 (12:20→21:18)
--- NOTE | 2016-06-10 13:55 | PN ---
DATE: 06/10/2016 LOCATION: Room 404. SUBJECTIVE: This is a 66-year-old female with recent acute exacerbation of congestive heart failure and chronic obstructive pulmonary disease with a concomitant right dental abscess and underwent incis ion and drainage yesterday and is now being followed closely for metabolic management. Her thyroid l evels have improved as noted. She presented here with hypothyroidism on the background of [facility] history of hyperthyroidism. Her latest chemistry showed a BUN of 9, sodium 132, potassium 2.6, ch loride 95, CO2 31, glucose 74, and creatinine 0.4. Her latest thyroid study showed a T4 of 1.57 with an albumin level of 2.1 and a TSH of 39.00. So at this time, we will continue the same low dose lev othyroxine given at 75 mcg once daily as ordered. We will titrate incrementally as indicated to opti stacy metabolic control. We will also obtain serial thyroid studies and adjust her dose accordingly. We will follow. Polly Vu MD cc: [id number] TT: 06/10/2016 13:54:43 Confirmation # [id number] Dictation # [id number] [place]
[2016-06-10] MEDS: Albuterol-Ipratrop 3 mg / 0.5 (3 ml) UD INH STA (20:05)
[2016-06-10] MEDS: Docusate-Senna 50 mg-8.6 mg Tab PO SCH (21:16)
[2016-06-11] MEDS: Clindamycin 600 MG in Sodium Chloride 0.9% 100 ML IVPB SCH ×3 (00:04→17:23)
[2016-06-11] MEDS: Piperacillin/Tazobact 3.375 GM in Sodium Chloride 0.9% 100 ML IVPB SCH ×2 (02:50→15:58)
[2016-06-11] MEDS: Oxycodone/Acetaminophen 5/325 mg Tab PO PRN ×2 (02:53→15:32)
[2016-06-11 05:45] LABS: BLOOD UREA NITROGEN 13 mg/dl (7-17); CALCIUM 8.2 mg/dL (8.4-10.2); CARBON DIOXIDE 28 mmol/L (22-30); CHLORIDE 99 mmol/L (98-107); GFR AFRICAN-AMERICAN > 60; GLUCOSE,RANDOM 125 mg/dL (65-105); MAGNESIUM 1.8 MG/DL (1.6-2.3); PHOSPHOROUS 3.9 mg/dl (2.5-4.5); POTASSIUM 4.2 MMOL/L (3.6-5.0); SODIUM 129 mmol/l (132-148)
[2016-06-11 06:08] LABS: HEMATOCRIT 28.4 % (34.0-47.0); MEAN CELL VOLUME 68.6 fl (81.0-99.0); MEAN CORPUSCULAR HEMOGLOBIN 19.6 pg (27.0-31.0); MEAN CORPUSCULAR HGB CONC 28.6 g/dL (33.0-37.0); RED CELL DISTRIBUTION WIDTH 24.1 % (11.5-14.5); WHITE BLOOD COUNT 4.8 K/uL (4.8-10.8)
[2016-06-11] MEDS: Levothyroxine 75 MCG TAB PO SCH (06:33)
[2016-06-11] MEDS: Acetylcysteine 10% 4 ML IH SCH ×2 (07:55→19:32)
[2016-06-11] MEDS: Albuterol 0.083% Inhal Sol (2.5 mg/3 mL) UD INH PRN ×2 (07:55→23:14)
--- NOTE | 2016-06-11 08:48 | PN ---
DATE: 06/09/2016 ROOM: 404 This is a 66-year-old female with recent admission for congestive heart failure and supervening exace rbation of COPD, and is now being followed closely also for metabolic management. She has longstandi ng history of hyperthyroidism and has been controlled on Tapazole given as 10 mg once daily as ordere d. However, with this admission, she presented with early hypothyroidism and has been therapy as given. Her latest chemistries showed a BUN of 9, sodium 129, potassium 3.7, chloride 95, CO2 32 . DICTATION ENDS HERE Polly Vu MD cc: [id number] TT: 06/09/2016 11:34:56 Confirmation # [id number] Dictation # [id number] en
[2016-06-11] MEDS: Tiotropium 18 mcg Cap For Inhalation INH SCH (08:57)
[2016-06-11] MEDS: Lactobacillus Acidophilus 500 MU Cap PO SCH ×2 (09:07→17:27)
[2016-06-11] MEDS: Pantoprazole 40 mg EC Tab PO SCH (09:08)
[2016-06-11] MEDS: Multivitamin With Minerals Tab PO SCH (09:09)
[2016-06-11] MEDS: Metoprolol Succinate 25 mg XL Tab PO SCH (09:09)
[2016-06-11] MEDS: Fluticasone-Salmeterol 250-50mcg Diskus IH SCH (09:19)
[2016-06-11] MEDS: Hydrocerin CREAM TOP SCH ×2 (09:22→16:25)
--- NOTE | 2016-06-11 09:56 | CP.PCM.PN ---
Subjective - Date & Time of Evaluation Date of Evaluation: 06/11/16 Time of Evaluation: 09:00 - Subjective Subjective: No fever Facial swelling decreased in size, less tender occ cough occ SOB no CP Plan for Bone scan today Also for PICC line today by IR Objective - Vital Signs/Intake and Output Vital Signs (last 24 hours): Temp Pulse Resp BP Pulse Ox 97.4 F L 85 18 97/62 L 100 06/11/16 08:35 06/11/16 09:09 06/11/16 08:35 06/11/16 09:09 06/11/16 08:35 Intake and Output: 06/11/16 06/11/16 06:59 18:59 Intake Total 400 Output Total 450 Balance -50 - Medications Medications: Current Medications Acetylcysteine (Mucomyst 10% 4ml) 2 ml IH RBID [facility] Last Admin: 06/11/16 07:55 Dose: 2 ml Albuterol Sulfate (Albuterol 0.083% Inhal Aby (2.5 Mg/3 Ml) Ud) 2.5 mg INH RQ4 PRN PRN Reason: Shortness of Breath Last Admin: 06/11/16 07:55 Dose: 2.5 mg Anastrozole (Arimidex 1 Mg Tab) 1 mg PO DAILY [facility] Last Admin: 06/11/16 09:25 Dose: Not Given Aspirin (Ecotrin) 81 mg PO DAILY [facility] Last Admin: 06/10/16 08:58 Dose: 81 mg Baclofen (Lioresal) 10 mg PO HS [facility] Last Admin: 06/10/16 21:16 Dose: 10 mg Enoxaparin Sodium (Lovenox) 40 mg SC DAILY [facility] PRN Reason: Protocol Last Admin: 06/08/16 09:02 Dose: 40 mg Gabapentin (Neurontin) 600 mg PO TID [facility] Last Admin: 06/11/16 08:56 Dose: Not Given Clindamycin Phosphate 600 mg/ (Sodium Chloride) 104 mls @ 104 mls/hr IVPB Q8 [facility] Last Admin: 06/11/16 09:17 Dose: 104 mls/hr Piperacillin Sod/Tazobactam (Sod 3.375 gm/ Sodium Chloride) 100 mls @ 100 mls/ hr IVPB Q8H [facility] Last Admin: 06/11/16 02:50 Dose: 100 mls/hr Lactobacillus Acidophilus (Bacid Acidophilus) 1 cap PO BID [facility] Last Admin: 06/11/16 09:07 Dose: Not Given Levothyroxine Sodium (Synthroid) 75 mcg PO 0630 [facility] Last Admin: 06/11/16 06:33 Dose: Not Given Metoprolol Succinate (Toprol Xl) 25 mg PO DAILY [facility] Last Admin: 06/11/16 09:09 Dose: Not Given Multi-Ingredient Cream (Hydrocerin Cream) 1 applic TOP BID [facility] Last Admin: 06/11/16 09:22 Dose: 1 applic Multivitamins/Minerals (Therapeutic-M Tab) 1 tab PO DAILY [facility] Last Admin: 06/11/16 09:09 Dose: Not Given Oxycodone/Acetaminophen (Percocet 5/325 Mg Tab) 1 tab PO Q4 PRN PRN Reason: Pain, moderate (4-7) Stop: 06/11/16 10:29 Last Admin: 06/11/16 02:53 Dose: 1 tab Oxycodone/Acetaminophen (Percocet 5/325 Mg Tab) 2 tab PO Q4 PRN PRN Reason: Pain, severe (8-10) Stop: 06/11/16 10:31 Last Admin: 06/10/16 05:07 Dose: 2 tab Pantoprazole Sodium (Protonix Ec Tab) 40 mg PO DAILY [facility] Last Admin: 06/11/16 09:08 Dose: Not Given Prednisone (Prednisone Tab) 5 mg PO TID [facility] Last Admin: 06/11/16 09:08 Dose: Not Given Fluticasone/Salmeterol (Advair Diskus 250/50) 1 puff IH Q12 [facility] Last Admin: 06/11/16 09:19 Dose: 1 puff Senna/Docusate Sodium (Senokot S 50 Mg-8.6 Mg) 1 tab PO HS [facility] Last Admin: 06/10/16 21:16 Dose: 1 tab Theophylline (Maximiliano-24) 200 mg PO Q12 [facility] Last Admin: 06/08/16 09:05 Dose: 200 mg Tiotropium [place] (Spiriva) 18 mcg INH DAILY [facility] Last Admin: 06/11/16 08:57 Dose: Not Given Verapamil HCl (Calan Tab) 80 mg PO TID [facility] Last Admin: 06/11/16 09:07 Dose: Not Given - Labs Labs: 06/11/16 04:05 06/11/16 04:05 PT 11.0 SECONDS (9.6-11.2) 06/09/16 04:10 INR 1.06 (0.92-1.08) 06/09/16 04:10 APTT 27.5 SECONDS (23.3-32.5) 06/03/16 22:33 - Constitutional Appears: No Acute Distress, Chronically Ill - Head Exam Head Exam: NORMAL INSPECTION, NORMOCEPHALIC - Eye Exam Eye Exam: EOMI, Normal appearance Pupil Exam: NORMAL ACCOMODATION - ENT Exam ENT Exam: Mucous Membranes Dry, Normal External Ear Exam Additional comments: right facial swelling, markedly decreased , still with some tenderness - Neck Exam Neck Exam: Full ROM. absent: Meningismus - Respiratory Exam Respiratory Exam: Rales, Rhonchi. absent: Wheezes, Respiratory Distress - Cardiovascular Exam Cardiovascular Exam: REGULAR RHYTHM, +S1, +S2 - GI/Abdominal Exam GI & Abdominal Exam: Soft, Normal Bowel Sounds. absent: Tenderness - Extremities Exam Extremities Exam: Normal Capillary Refill, Pedal Edema Additional comments: abrasions LE - Back Exam Back Exam: absent: CVA tenderness (L), CVA tenderness (R) - Neurological Exam Neurological Exam: Alert, Awake, CN II-XII Intact, Oriented x3 - Psychiatric Exam Psychiatric exam: Normal Affect, Normal Mood - Skin Skin Exam: Dry, Normal Color, Warm Assessment and Plan - Assessment and Plan (Free Text) Assessment: 66 y/o female PMH COPD, bilateral breast CA s/p chemo and radiation 8 years ago with bone mets to shoulder (s/p humerus resection), HTN, hyperthyroidism presented with 2 week history of worsening bilateral lower extremity swelling and weakness, unable to get herself up to her walker. Patient has mild dyspnea at baseline. She also noted to have right facial swelling for almost 2 weeks being treated with Po antibiotics as out patient. Patient admitted for generalized weakness , Hyponatremia and facial abscess. She was started on IV Clinda and Zosyn for facial abscess and lasix Iv with fluid restriction for LE edema . At present she is afebrile, Maxillofacial Ct showed possible abscess accumulation and patient has purulent discharge from an opening in oral mucosa. Evaluated by maxillofacial surgeon and underwent Incision and drainage of abscess. 1. Facial abscess s/p drainage of abscess Patient is afebrile Maxillofacial Ct showed :Large enhancing wall collection seen around the mid and upper right mandibular ramus and mandibular neck extending anteriorly and seen medial and lateral to the right zygomatic arch as described above. This collection contains foci of air. The density and the appearance of this collection suggestive of abscess formation. The collection is seen anterior to the right parotid gland and extending medially to the posterior right oral cavity. [id number]-br-[id number] right maxillary sinus mucosal thickening and small air-fluid level. Partial opacification of both mastoids suggestive of mastoiditis. ID on consult: Dr ryan Continue Clindamycin and Zosyn IV OMFS Dr. Ambrose: Incision and drainage on 06/09 Nuclear Bone Scan to r/o Osteo ESR normal PICC line placed by IR today 2. Bilateral LE edema likely CHF exacerbation with diastolic dysfx, preserved EF Lasix prn Breathing is improved, edema also improving last echo 06/2015 NORMAL EF, +MR +diastolic dysfunction PT eval appreciated . patient will benefit from [facility] Podiatry consult for dorsum pain and wound consult for LE abrasions appreciated 3.Hypokalemia KCl runs and PO given yesterday - K normal today Most likely diuretic induced 4.Hyponatremia most likely secondary to solute depletion and infection Continue fluid restriction 5.Acute bronchitis and COPD improving dyspnea cont Duonebs, theophylline , spiriva, Advair on Prednisone -changed to Hydrocortisone IV 100mg daily Dr. Benz consult appreciated and following restart Theophylline however decrease dose to 200mg daily ( Uniphyl) 6.Hx breast ca, bilateral stable continue arimidex 7.Hypertension on the low side Hold BP meds if SBp < 100 d/c Metoprolol Decrease Verapamil to 40 mg TID 8. Hypothyroidism patient has history of hyperthyroidism and was on Methimazole. Now patient has developed hypothyroidism TSH 32 Endo consulted - Dr Horace rice pt D/c methimazole and started Synthroid 9. Anemia, chronic dis monitor 10.DVT ppx lovenox
[2016-06-11] MEDS ORDERED: Lidocaine 1% Inj (20ml) ONE (12:14)
[2016-06-11] MEDS ORDERED: Midazolam 2 MG/2 ML VIAL ONE (12:15)
--- NOTE | 2016-06-11 13:04 | PCM.SURG1 ---
Surgeon's Initial Post Op Note - Surgeon's Notes Surgeon: Sreekanth Harrison MD Crop Roller: None Type of Anesthesia: Local Pre-Operative Diagnosis: Poor venous access, mastectomy, lymphedema. Operative Findings: Patent right IJV Post-Operative Diagnosis: Poor venous access Operation Performed: Right IJV tunneled picc placement, single lumen, 19 cm. Tip SVC. Specimen/Specimens Removed: None Estimated Blood Loss: EBL {In ML}: 2 Drains Used: No Drains Post-Op Condition: Fair Date of Surgery/Procedure: 06/11/16 Time of Surgery/Procedure: 13:00
[2016-06-11] MEDS ORDERED: Lactated Ringer's 500 ML IV ONE (14:15)
[2016-06-11] MEDS: Hydrocortisone- 100 MG in Sodium Chloride 0.9% 100 ML IV SCH (15:28)
--- NOTE | 2016-06-11 15:56 | VASCULAR ---
PROCEDURE: Date of procedure: 06/11/2016 Procedure: 1. Placement of right IJ tunneled PICC, CPT 54690 Medications: 1 percent lidocaine, IV sedation and physiologic monitoring performed by the anesthesiologist. HISTORY: Poor venous access, bilateral mastectomy, lymphedema. TECHNIQUE: Following informed consent and procedure time-out, the patient was placed supine on the interventional table and the skin was marked . A limited ultrasound patient's right neck showed a patent compressible right internal jugular vein. Under direct ultrasound guidance, the right internal jugular vein was accessed with micropuncture technique and a guidewire was advanced under fluoroscopic guidance into the superior vena cava. An image documenting ultrasound guidance for vascular access was permanently saved. 5 [place] single-lumen tunneled PICC was tunneled under the skin and out the venotomy site. The PICC was then cut at 19 centimeter advanced through the peel-away sheath. The position of PICC is confirmed and tip is within the superior vena cava. The catheter secured to the skin with a 2-0 silk suture. IMPRESSION: Placement of right IJ tunneled picc, 19 cm. The catheter tip is confirmed with spot radiograph and is in the superior vena cava. The catheter is functional and ready for use.
[2016-06-11] MEDS: THEOPHYLLINE 400 MG T24(UNIPHYL) PO SCH (15:57)
[2016-06-11] MEDS: Albuterol-Ipratrop 3 mg / 0.5 (3 ml) UD INH SCH ×3 (15:59→19:31)
[2016-06-11] MEDS: Lactated Ringer's 1,000 ML IV SCH ×2 (16:02→21:23)
--- NOTE | 2016-06-11 18:34 | NM ---
PROCEDURE: Whole Body Bone Scan HISTORY: Mandibular abscess r/o Osteomyelitis COMPARISON: Comparison is made to the previous total body bone scan dated 10/02/2015 TECHNIQUE: Following administration of 24.6 miCu of Tc MDP multiplanar whole body images were obtained. FINDINGS: The 3 phase bone scan of the facial region demonstrate increased blood flow hyperemia and delayed radiotracer uptake at the right mandibular ramus. The possibility of osteomyelitis should be considered. Degenerative uptake: Degenerative changes are noted at both shoulders. IMPRESSION: Hyperemia and delayed increased radiotracer uptake at the right mandible. The possibility of osteomyelitis should be considered. If clinically warranted further assessment by MRI may be obtained.
--- NOTE | 2016-06-11 19:46 | PN ---
DATE: 06/11/2016 ROOM: 404 SUBJECTIVE: This is a 66-year-old female presenting here with congestive heart failure and underlyin g COPD with supervening large abscess in the right mandibular area and underwent incision and drainag e and is now being followed closely for metabolic management. She also has had moderate hypothyroidi sm with significant history of longstanding hyperthyroidism. She has since then been started on levo thyroxine therapy at the low dose. Repeat chemistry showed a BUN of 13, sodium 129, potassium 4.2, c hloride 99, CO2 28, glucose 125, creatinine 0.4. Had a repeat thyroid study showed a T4 of 1.57 with a TSH of . So at this time, we will increase the levothyroxine to 100 mcg once daily before br eakfast as ordered. We will titrate incrementally as indicated to optimize metabolic control. We wi ll follow and advise accordingly. Polly Vu MD cc: [id number] TT: 06/11/2016 19:45:19 Confirmation # [id number] Dictation # [id number]
[2016-06-11] MEDS: Docusate-Senna 50 mg-8.6 mg Tab PO SCH (21:19)
[2016-06-12] MEDS: Clindamycin 600 MG in Sodium Chloride 0.9% 100 ML IVPB SCH ×2 (00:48→09:40)
[2016-06-12] MEDS: Piperacillin/Tazobact 3.375 GM in Sodium Chloride 0.9% 100 ML IVPB SCH ×3 (03:30→20:51)
[2016-06-12] MEDS: Albuterol 0.083% Inhal Sol (2.5 mg/3 mL) UD INH PRN (04:51)
[2016-06-12] MEDS: Lactated Ringer's 1,000 ML IV SCH (06:29)
[2016-06-12] MEDS: Levothyroxine 100 MCG TAB PO SCH (06:29)
[2016-06-12] MEDS: Albuterol-Ipratrop 3 mg / 0.5 (3 ml) UD INH SCH ×4 (07:32→19:02)
[2016-06-12] MEDS: Acetylcysteine 10% 4 ML IH SCH ×2 (07:32→19:02)
--- NOTE | 2016-06-12 08:36 | CP.PCM.PN ---
Subjective - Date & Time of Evaluation Date of Evaluation: 06/11/16 Time of Evaluation: 10:00 - Subjective Subjective: Seen on morning rounds with the resident. Interim events reviewed. She claims to be feeling somewhat improved with less facial discomfort. Vital signs have remained stable and she is afebrile. No further cultures are available. Case discussed with the hospitalist and decision to obtain bone scan made. Cough is still very congested and weak. Diffuse sonorous rhonchi are heard in both lungs. E phase remains mildly prolonged w/o audible wheezing. Labs are reviewed and remain stable, although the Hgb is low. Theophylline to be restarted at a lower dose. Results of bone scan will determine antibiotic therapy. May be transferred off telemetry from pulmonary standpoint. Objective - Vital Signs/Intake and Output Vital Signs (last 24 hours): Temp Pulse Resp BP Pulse Ox 97.7 F 101 H 18 116/67 100 06/12/16 08:00 06/12/16 08:00 06/12/16 08:00 06/12/16 08:00 06/12/16 08:00 Intake and Output: 06/11/16 06/12/16 23:59 11:59 Intake Total 200 Output Total 250 375 Balance -50 -375 - Medications Medications: Current Medications Acetaminophen (Tylenol 325mg Tab) 650 mg PO Q6 PRN PRN Reason: Pain, moderate (4-7) Last Admin: 06/11/16 22:50 Dose: 650 mg Acetylcysteine (Mucomyst 10% 4ml) 2 ml IH RBID [facility] Last Admin: 06/12/16 07:32 Dose: 2 ml Albuterol Sulfate (Albuterol 0.083% Inhal Aby (2.5 Mg/3 Ml) Ud) 2.5 mg INH RQ4 PRN PRN Reason: Shortness of Breath Last Admin: 06/12/16 04:51 Dose: 2.5 mg Albuterol/Ipratropium (Duoneb 3 Mg/0.5 Mg (3 Ml) Ud) 3 ml INH RQID [facility] Last Admin: 06/12/16 07:32 Dose: 3 ml Anastrozole (Arimidex 1 Mg Tab) 1 mg PO DAILY [facility] Last Admin: 06/11/16 13:00 Dose: 1 mg Aspirin (Ecotrin) 81 mg PO DAILY [facility] Last Admin: 06/10/16 08:58 Dose: 81 mg Baclofen (Lioresal) 10 mg PO HS [facility] Last Admin: 06/11/16 21:19 Dose: 10 mg Enoxaparin Sodium (Lovenox) 40 mg SC DAILY [facility] PRN Reason: Protocol Last Admin: 06/08/16 09:02 Dose: 40 mg Gabapentin (Neurontin) 600 mg PO TID [facility] Last Admin: 06/11/16 16:25 Dose: 600 mg Clindamycin Phosphate 600 mg/ (Sodium Chloride) 104 mls @ 104 mls/hr IVPB Q8 [facility] Last Admin: 06/12/16 00:48 Dose: 104 mls/hr Piperacillin Sod/Tazobactam (Sod 3.375 gm/ Sodium Chloride) 100 mls @ 100 mls/ hr IVPB Q8H [facility] Last Admin: 06/12/16 03:30 Dose: 100 mls/hr Hydrocortisone Sodium Succinate 100 mg/ Sodium Chloride 100 mls @ 100 mls/hr IV DAILY [facility] Last Admin: 06/11/16 15:28 Dose: 100 mls/hr Lactated Ringer's (Lactated Ringer's) 1,000 mls @ 125 mls/hr IV .Q8H [facility] Last Admin: 06/12/16 06:29 Dose: 125 mls/hr Lactobacillus Acidophilus (Bacid Acidophilus) 1 cap PO BID [facility] Last Admin: 06/11/16 17:27 Dose: 1 cap Levothyroxine Sodium (Synthroid) 100 mcg PO 0630 [facility] Last Admin: 06/12/16 06:29 Dose: 100 mcg Multi-Ingredient Cream (Hydrocerin Cream) 1 applic TOP BID [facility] Last Admin: 06/11/16 16:25 Dose: 1 applic Multivitamins/Minerals (Therapeutic-M Tab) 1 tab PO DAILY [facility] Last Admin: 06/11/16 09:09 Dose: Not Given Pantoprazole Sodium (Protonix Ec Tab) 40 mg PO DAILY [facility] Last Admin: 06/11/16 09:08 Dose: Not Given Senna/Docusate Sodium (Senokot S 50 Mg-8.6 Mg) 1 tab PO [facility] Last Admin: 06/11/16 21:19 Dose: 1 tab Theophylline (Uniphyl) 200 mg PO DAILY [facility] Last Admin: 06/11/16 15:57 Dose: Not Given Verapamil HCl (Calan Tab) 40 mg PO TID [facility] Last Admin: 06/11/16 16:25 Dose: Not Given - Labs Labs: 06/11/16 04:05 06/11/16 04:05 PT 11.0 SECONDS (9.6-11.2) 06/09/16 04:10 INR 1.06 (0.92-1.08) 06/09/16 04:10 APTT 27.5 SECONDS (23.3-32.5) 06/03/16 22:33 Assessment and Plan (1) Acute bronchitis with chronic obstructive pulmonary disease (COPD) Status: Acute (2) Hyperthyroidism Status: Chronic (3) Abscess Status: Acute
[2016-06-12] MEDS: Lactobacillus Acidophilus 500 MU Cap PO SCH ×2 (09:39→16:31)
[2016-06-12] MEDS: Hydrocerin CREAM TOP SCH ×2 (09:41→16:30)
[2016-06-12] MEDS: Multivitamin With Minerals Tab PO SCH (09:42)
[2016-06-12] MEDS: Enoxaparin 40 mg Syringe SC SCH (09:42)
[2016-06-12] MEDS: Pantoprazole 40 mg EC Tab PO SCH (09:42)
[2016-06-12] MEDS: THEOPHYLLINE 400 MG T24(UNIPHYL) PO SCH (09:43)
[2016-06-12] MEDS: Hydrocortisone- 100 MG in Sodium Chloride 0.9% 100 ML IV SCH (10:00)
--- NOTE | 2016-06-12 11:29 | CP.PCM.PN ---
Subjective - Date & Time of Evaluation Date of Evaluation: 06/12/16 Time of Evaluation: 11:45 - Subjective Subjective: I have seen and examined patient bedside. Complains of more dyspnea and chest congestion at rest today .Unable to expectorate. Right facial swelling is better , pain has improved but still present especially over the sub mandibular area. Hemodynamically stable, afebrile. No acute issues overnight. Objective - Vital Signs/Intake and Output Vital Signs (last 24 hours): Temp Pulse Resp BP Pulse Ox 97.7 F 101 H 18 116/67 100 06/12/16 08:00 06/12/16 09:40 06/12/16 08:00 06/12/16 09:40 06/12/16 08:00 Intake and Output: 06/12/16 06/12/16 06:59 18:59 Output Total 375 Balance -375 - Medications Medications: Current Medications Acetaminophen (Tylenol 325mg Tab) 650 mg PO Q6 PRN PRN Reason: Pain, moderate (4-7) Last Admin: 06/11/16 22:50 Dose: 650 mg Acetylcysteine (Mucomyst 10% 4ml) 2 ml IH RBID [facility] Last Admin: 06/12/16 07:32 Dose: 2 ml Albuterol Sulfate (Albuterol 0.083% Inhal Aby (2.5 Mg/3 Ml) Ud) 2.5 mg INH RQ4 PRN PRN Reason: Shortness of Breath Last Admin: 06/12/16 04:51 Dose: 2.5 mg Albuterol/Ipratropium (Duoneb 3 Mg/0.5 Mg (3 Ml) Ud) 3 ml INH RQID [facility] Last Admin: 06/12/16 07:32 Dose: 3 ml Anastrozole (Arimidex 1 Mg Tab) 1 mg PO DAILY [facility] Last Admin: 06/12/16 09:38 Dose: 1 mg Aspirin (Ecotrin) 81 mg PO DAILY [facility] Last Admin: 06/12/16 09:41 Dose: 81 mg Baclofen (Lioresal) 10 mg PO HS [facility] Last Admin: 06/11/16 21:19 Dose: 10 mg Enoxaparin Sodium (Lovenox) 40 mg SC DAILY [facility] PRN Reason: Protocol Last Admin: 06/12/16 09:42 Dose: 40 mg Gabapentin (Neurontin) 600 mg PO TID [facility] Last Admin: 06/12/16 09:42 Dose: 600 mg Clindamycin Phosphate 600 mg/ (Sodium Chloride) 104 mls @ 104 mls/hr IVPB Q8 [facility] Last Admin: 06/12/16 09:40 Dose: 104 mls/hr Piperacillin Sod/Tazobactam (Sod 3.375 gm/ Sodium Chloride) 100 mls @ 100 mls/ hr IVPB Q8H [facility] Last Admin: 06/12/16 03:30 Dose: 100 mls/hr Hydrocortisone Sodium Succinate 100 mg/ Sodium Chloride 100 mls @ 100 mls/hr IV DAILY [facility] Last Admin: 06/12/16 10:00 Dose: 100 mls/hr Lactated Ringer's (Lactated Ringer's) 1,000 mls @ 125 mls/hr IV .Q8H [facility] Last Admin: 06/12/16 06:29 Dose: 125 mls/hr Lactobacillus Acidophilus (Bacid Acidophilus) 1 cap PO BID [facility] Last Admin: 06/12/16 09:39 Dose: 1 cap Levothyroxine Sodium (Synthroid) 100 mcg PO 0630 [facility] Last Admin: 06/12/16 06:29 Dose: 100 mcg Multi-Ingredient Cream (Hydrocerin Cream) 1 applic TOP BID [facility] Last Admin: 06/12/16 09:41 Dose: 1 applic Multivitamins/Minerals (Therapeutic-M Tab) 1 tab PO DAILY [facility] Last Admin: 06/12/16 09:42 Dose: 1 tab Pantoprazole Sodium (Protonix Ec Tab) 40 mg PO DAILY [facility] Last Admin: 06/12/16 09:42 Dose: 40 mg Senna/Docusate Sodium (Senokot S 50 Mg-8.6 Mg) 1 tab PO HS [facility] Last Admin: 06/11/16 21:19 Dose: 1 tab Theophylline (Uniphyl) 200 mg PO DAILY [facility] Last Admin: 06/12/16 09:43 Dose: 200 mg Verapamil HCl (Calan Tab) 40 mg PO TID [facility] Last Admin: 06/12/16 09:40 Dose: 40 mg - Labs Labs: 06/11/16 04:05 06/11/16 04:05 PT 11.0 SECONDS (9.6-11.2) 06/09/16 04:10 INR 1.06 (0.92-1.08) 06/09/16 04:10 APTT 27.5 SECONDS (23.3-32.5) 06/03/16 22:33 - Constitutional Appears: Non-toxic, Chronically Ill - Head Exam Head Exam: ATRAUMATIC, NORMOCEPHALIC - Eye Exam Eye Exam: EOMI, PERRL Pupil Exam: NORMAL ACCOMODATION - ENT Exam ENT Exam: Mucous Membranes Moist Additional comments: right bucal mucosa sutures in place - Neck Exam Neck Exam: Normal Inspection - Respiratory Exam Respiratory Exam: Decreased Breath Sounds (bibasilar ), Prolonged Expiratory Phase, Rhonchi. absent: Wheezes Additional comments: Right upper chest tunneled catheter present - Cardiovascular Exam Cardiovascular Exam: REGULAR RHYTHM. absent: JVD - GI/Abdominal Exam GI & Abdominal Exam: Soft, Normal Bowel Sounds. absent: Distended, Rebound - Rectal Exam Rectal Exam: Deferred - Extremities Exam Extremities Exam: Normal Capillary Refill, Pedal Edema (2 + RLe and 1+ LLE. RUE lymphedema). absent: Calf Tenderness, Tenderness - Back Exam Back Exam: NORMAL INSPECTION - Neurological Exam Neurological Exam: Alert, Awake, CN II-XII Intact, Oriented x3 - Psychiatric Exam Psychiatric exam: Normal Affect - Skin Skin Exam: Dry, Pallor, Warm Additional comments: upper chest multiple echymotic areas Assessment and Plan - Assessment and Plan (Free Text) Assessment: 66 y/o female PMH COPD, bilateral breast CA s/p chemo and radiation 8 years ago with bone mets to shoulder (s/p humerus resection), HTN, hyperthyroidism presented with 2 week history of worsening bilateral lower extremity swelling and weakness, unable to get herself up to her walker. Patient has mild dyspnea at baseline. She also noted to have right facial swelling for almost 2 weeks being treated with Po antibiotics as out patient. Patient admitted for generalized weakness , Hyponatremia and facial abscess. She was started on IV Clinda and Zosyn for facial abscess and lasix Iv with fluid restriction for LE edema . At present she is afebrile, Maxillofacial Ct showed possible abscess accumulation and patient has purulent discharge from an opening in oral mucosa. Evaluated by maxillofacial surgeon and underwent Incision and drainage of abscess.At present with no positive cultures. Bone scan showed possible osteomyelytis. Today complaining of more chest congestion and dyspnea at rest. 1. Facial abscess s/p drainage of abscess Patient is afebrile Maxillofacial Ct showed :Large enhancing wall collection seen around the mid and upper right mandibular ramus and mandibular neck extending anteriorly and seen medial and lateral to the right zygomatic arch as described above. This collection contains foci of air. The density and the appearance of this collection suggestive of abscess formation. The collection is seen anterior to the right parotid gland and extending medially to the posterior right oral cavity. [id number] right maxillary sinus mucosal thickening and small air-fluid level. Partial opacification of both mastoids suggestive of mastoiditis. ID on consult: Dr Obrien. Was started on clindamycin and Zosyn IV OMFS Dr. Ambrose consulted and patient underwent Incision and drainage on 06/09 All cultures with no growth so far pathology report showed infl;ammatory cells, no malignancy Nuclear Bone Scan could not rule out osteomyelitis Tunneled central line placed for watermaster IV antibiotics Discussedw [facility] Dr. Obrien. will d/c clindamycin and start vancomycibn 1 g IV BId and Zosyn 3.375 mg IV Q12 . will repeta BMP in Am and check vanco trough 2. Bilateral LE edema likely CHF exacerbation with diastolic dysfx, preserved EF Lasix prn edema also improving Complians of more chest congestion today last echo 06/2015 NORMAL EF, +MR +diastolic dysfunction continue fluid restriction and lasix PT eval appreciated . patient will benefit from TAMARA (planning discharge to [facility] ) Podiatry consult for dorsum pain and wound consult for LE abrasions appreciated 3.Hypokalemia K normal today Most likely diuretic induced 4.Hyponatremia most likely secondary to solute depletion and infection Continue fluid restriction 5.Acute bronchitis and COPD cont Duonebs, theophylline , spiriva, Advair on Hydrocortisone IV 100mg daily Dr. Benz consult appreciated and following restarted Theophylline low dose , 200mg daily 6.Hx breast ca, bilateral stable continue arimidex 7.Hypertension on the low side Held BP meds if SBp < 100 d/c Metoprolol Decreased Verapamil to 40 mg TID 8. Hypothyroidism patient has history of hyperthyroidism and was on Methimazole. Now patient has developed hypothyroidism TSH 32 Endo consulted - Dr Vu following pt D/c methimazole and started Synthroid increased dose to 100 mg po QD 9. Anemia, chronic dis monitor 10.DVT ppx lovenox
--- NOTE | 2016-06-12 12:46 | CP.PCM.PN ---
Subjective - Date & Time of Evaluation Date of Evaluation: 06/12/16 Time of Evaluation: 12:44 - Subjective Subjective: Lying in bed comfortably. Still complaining of dyspnea on simple exertion. Still having difficulty expectorating sputum despite congested coughing. Vital signs remained stable. Bone scan done yesterday suggests possible osteomyelitis of the mandible. Facial swelling continues to decrease slowly. Neck is supple and trachea is midline. No dullness on chest percussion. Coarse rhonchi are heard bilaterally with coughing. Occasional faint expiratory wheezes heard in the lower lobes. No bronchial breathing or egophony. Heart sounds are distant and rhythm is regular. Continue aerosol therapy as well as chest physical therapy. Continue current antibiotic regimen. Physical therapy/out of bed as tolerated. Theophylline resumed at 200 mg extended release once daily. Objective - Vital Signs/Intake and Output Vital Signs (last 24 hours): Temp Pulse Resp BP Pulse Ox 98.6 F 102 H 18 104/55 L 99 06/12/16 12:00 06/12/16 12:00 06/12/16 12:00 06/12/16 12:00 06/12/16 12:00 Intake and Output: 06/12/16 06/12/16 11:59 23:59 Output Total 375 Balance -375 - Medications Medications: Current Medications Acetaminophen (Tylenol 325mg Tab) 650 mg PO Q6 PRN PRN Reason: Pain, moderate (4-7) Last Admin: 06/11/16 22:50 Dose: 650 mg Acetylcysteine (Mucomyst 10% 4ml) 2 ml IH RBID [facility] Last Admin: 06/12/16 07:32 Dose: 2 ml Albuterol Sulfate (Albuterol 0.083% Inhal Aby (2.5 Mg/3 Ml) Ud) 2.5 mg INH RQ4 PRN PRN Reason: Shortness of Breath Last Admin: 06/12/16 04:51 Dose: 2.5 mg Albuterol/Ipratropium (Duoneb 3 Mg/0.5 Mg (3 Ml) Ud) 3 ml INH RQID [facility] Last Admin: 06/12/16 11:32 Dose: 3 ml Anastrozole (Arimidex 1 Mg Tab) 1 mg PO DAILY [facility] Last Admin: 06/12/16 09:38 Dose: 1 mg Aspirin (Ecotrin) 81 mg PO DAILY [facility] Last Admin: 06/12/16 09:41 Dose: 81 mg Baclofen (Lioresal) 10 mg PO HS [facility] Last Admin: 06/11/16 21:19 Dose: 10 mg Enoxaparin Sodium (Lovenox) 40 mg SC DAILY [facility] PRN Reason: Protocol Last Admin: 06/12/16 09:42 Dose: 40 mg Gabapentin (Neurontin) 600 mg PO TID [facility] Last Admin: 06/12/16 09:42 Dose: 600 mg Hydrocortisone Sodium Succinate 100 mg/ Sodium Chloride 100 mls @ 100 mls/hr IV DAILY [facility] Last Admin: 06/12/16 10:00 Dose: 100 mls/hr Vancomycin HCl 1 gm/ Sodium (Chloride) 250 mls @ 166.667 mls/hr IVPB Q12 [facility] Piperacillin Sod/Tazobactam (Sod 3.375 gm/ Sodium Chloride) 100 mls @ 100 mls/ hr IVPB Q12 [facility] Lactobacillus Acidophilus (Bacid Acidophilus) 1 cap PO BID [facility] Last Admin: 06/12/16 09:39 Dose: 1 cap Levothyroxine Sodium (Synthroid) 100 mcg PO 0630 [facility] Last Admin: 06/12/16 06:29 Dose: 100 mcg Multi-Ingredient Cream (Hydrocerin Cream) 1 applic TOP BID [facility] Last Admin: 06/12/16 09:41 Dose: 1 applic Multivitamins/Minerals (Therapeutic-M Tab) 1 tab PO DAILY [facility] Last Admin: 06/12/16 09:42 Dose: 1 tab Pantoprazole Sodium (Protonix Ec Tab) 40 mg PO DAILY [facility] Last Admin: 06/12/16 09:42 Dose: 40 mg Senna/Docusate Sodium (Senokot S 50 Mg-8.6 Mg) 1 tab PO [facility] Last Admin: 06/11/16 21:19 Dose: 1 tab Theophylline (Uniphyl) 200 mg PO DAILY [facility] Last Admin: 06/12/16 09:43 Dose: 200 mg Verapamil HCl (Calan Tab) 40 mg PO TID [facility] Last Admin: 06/12/16 09:40 Dose: 40 mg - Labs Labs: 06/11/16 04:05 06/11/16 04:05 PT 11.0 SECONDS (9.6-11.2) 06/09/16 04:10 INR 1.06 (0.92-1.08) 06/09/16 04:10 APTT 27.5 SECONDS (23.3-32.5) 06/03/16 22:33 Assessment and Plan (1) Acute bronchitis with chronic obstructive pulmonary disease (COPD) Status: Acute (2) Hyperthyroidism Status: Chronic (3) Abscess Status: Acute
--- NOTE | 2016-06-12 14:55 | PN ---
DATE: 06/12/2016 ROOM: 404 SUBJECTIVE: This is a 66-year-old female with longstanding history of hyperthyroidism, now presentin g this admission with overt early hypothyroidism and has been placed on levothyroxine replacement the rapy as tolerated. She also has presented with congestive heart failure and acute exacerbation of CO PD and is clinically and hemodynamically improving as noted thereof. Her latest chemistry showed a B UN of 13, sodium 129, potassium 4.2, chloride 99, CO2 28, glucose 125, and creatinine 0.4. So, at th is time, we will continue the levothyroxine dosing given as 100 mcg once daily in the morning as orde red. We will titrate incrementally as indicated to optimize metabolic control. She also has ongoing IV antibiotic management for recent abscess in the right mandibular area and underwent also a recent incision and drainage procedure as noted. We will obtain serial chemistries and serial thyroid stud ies and adjust her dose regimen accordingly. We will follow. Polly Vu MD cc: [id number] TT: 06/12/2016 14:54:45 Confirmation # [id number] Dictation # [id number]
[2016-06-13] MEDS: Albuterol 0.083% Inhal Sol (2.5 mg/3 mL) UD INH PRN (04:39)
[2016-06-13] MEDS: Levothyroxine 100 MCG TAB PO SCH (05:51)
[2016-06-13 07:58] LABS: BLOOD UREA NITROGEN 8 mg/dl (7-17); CARBON DIOXIDE 36 mmol/L (22-30); CHLORIDE 98 mmol/L (98-107); GFR AFRICAN-AMERICAN > 60; GLUCOSE,RANDOM 79 mg/dL (65-105); POTASSIUM 3.3 MMOL/L (3.6-5.0); SODIUM 135 mmol/l (132-148)
[2016-06-13] MEDS: Hydrocortisone- 100 MG in Sodium Chloride 0.9% 100 ML IV SCH (08:00)
[2016-06-13] MEDS: Piperacillin/Tazobact 3.375 GM in Sodium Chloride 0.9% 100 ML IVPB SCH ×2 (09:00→20:10)
[2016-06-13] MEDS: Acetylcysteine 10% 4 ML IH SCH ×2 (09:18→19:42)
[2016-06-13] MEDS: Albuterol-Ipratrop 3 mg / 0.5 (3 ml) UD INH SCH ×4 (09:18→19:42)
[2016-06-13] MEDS ORDERED: Potassium Chloride 10 mEq ER Tab PO ONE (09:22)
--- NOTE | 2016-06-13 09:46 | CP.PCM.PN ---
Subjective - Date & Time of Evaluation Date of Evaluation: 06/13/16 Time of Evaluation: 09:40 - Subjective Subjective: Patient was seen and examined bedside. Feeling more SOB today with minimal exertion , like talking, unable to finish full sentence . With accessory muscle use ,very congested but unable to expectorate and with weak cough.Physical exam significant for decreased breath sounds bibasilar with rales and diffuse rhonchi , no wheezing. Tachycardic HR 99 BP 117/72 afebrile , O2 Sat 97 % on 3 L O2 via Nc RR 20 Objective - Vital Signs/Intake and Output Vital Signs (last 24 hours): Temp Pulse Resp BP Pulse Ox 97.5 F L 99 H 18 117/72 100 06/13/16 07:51 06/13/16 07:51 06/13/16 07:51 06/13/16 07:51 06/13/16 07:51 Intake and Output: 06/13/16 06/13/16 06:59 18:59 Intake Total 540 Output Total 400 Balance 140 - Medications Medications: Current Medications Acetaminophen (Tylenol 325mg Tab) 650 mg PO Q6 PRN PRN Reason: Pain, moderate (4-7) Last Admin: 06/13/16 04:32 Dose: 650 mg Acetylcysteine (Mucomyst 10% 4ml) 2 ml IH RBID [facility] Last Admin: 06/13/16 09:18 Dose: 2 ml Albuterol Sulfate (Albuterol 0.083% Inhal Aby (2.5 Mg/3 Ml) Ud) 2.5 mg INH RQ4 PRN PRN Reason: Shortness of Breath Last Admin: 06/13/16 04:39 Dose: 2.5 mg Albuterol/Ipratropium (Duoneb 3 Mg/0.5 Mg (3 Ml) Ud) 3 ml INH RQID [facility] Last Admin: 06/13/16 09:18 Dose: 3 ml Anastrozole (Arimidex 1 Mg Tab) 1 mg PO DAILY [facility] Last Admin: 06/12/16 09:38 Dose: 1 mg Aspirin (Ecotrin) 81 mg PO DAILY [facility] Last Admin: 06/12/16 09:41 Dose: 81 mg Baclofen (Lioresal) 10 mg PO HS [facility] Last Admin: 06/12/16 21:03 Dose: 10 mg Enoxaparin Sodium (Lovenox) 40 mg SC DAILY [facility] PRN Reason: Protocol Last Admin: 06/12/16 09:42 Dose: 40 mg Furosemide (Lasix) 40 mg IVP STAT STA Stop: 06/13/16 09:41 Gabapentin (Neurontin) 600 mg PO TID [facility] Last Admin: 06/12/16 16:32 Dose: 600 mg Hydrocortisone Sodium Succinate 100 mg/ Sodium Chloride 100 mls @ 100 mls/hr IV DAILY [facility] Last Admin: 06/12/16 10:00 Dose: 100 mls/hr Vancomycin HCl 1 gm/ Sodium (Chloride) 250 mls @ 166.667 mls/hr IVPB Q12 [facility] Last Admin: 06/12/16 21:42 Dose: 166.667 mls/hr Piperacillin Sod/Tazobactam (Sod 3.375 gm/ Sodium Chloride) 100 mls @ 100 mls/ hr IVPB Q12 [facility] Last Admin: 06/12/16 20:51 Dose: 100 mls/hr Lactobacillus Acidophilus (Bacid Acidophilus) 1 cap PO BID [facility] Last Admin: 06/12/16 16:31 Dose: 1 cap Levothyroxine Sodium (Synthroid) 100 mcg PO 0630 [facility] Last Admin: 06/13/16 05:51 Dose: 100 mcg Multi-Ingredient Cream (Hydrocerin Cream) 1 applic TOP BID [facility] Last Admin: 06/12/16 16:30 Dose: 1 applic Multivitamins/Minerals (Therapeutic-M Tab) 1 tab PO DAILY [facility] Last Admin: 06/12/16 09:42 Dose: 1 tab Pantoprazole Sodium (Protonix Ec Tab) 40 mg PO DAILY [facility] Last Admin: 06/12/16 09:42 Dose: 40 mg Senna/Docusate Sodium (Senokot S 50 Mg-8.6 Mg) 1 tab PO HS [facility] Last Admin: 06/11/16 21:19 Dose: 1 tab Theophylline (Uniphyl) 200 mg PO DAILY [facility] Last Admin: 06/12/16 09:43 Dose: 200 mg Verapamil HCl (Calan Tab) 40 mg PO TID [facility] Last Admin: 06/12/16 16:32 Dose: 40 mg - Labs Labs: 06/11/16 04:05 06/13/16 06:00 PT 11.0 SECONDS (9.6-11.2) 06/09/16 04:10 INR 1.06 (0.92-1.08) 06/09/16 04:10 APTT 27.5 SECONDS (23.3-32.5) 06/03/16 22:33 - Constitutional Appears: Chronically Ill, Other (moderate respiratory distress with accessory muscle use ) - Head Exam Head Exam: ATRAUMATIC, NORMAL INSPECTION, NORMOCEPHALIC - Eye Exam Eye Exam: EOMI, Normal appearance, PERRL Pupil Exam: NORMAL ACCOMODATION - ENT Exam ENT Exam: Mucous Membranes Moist, Normal Exam - Neck Exam Neck Exam: Normal Inspection - Respiratory Exam Respiratory Exam: Accessory Muscle Use, Decreased Breath Sounds (bibasilar), Prolonged Expiratory Phase, Rales, Rhonchi (diffuse ), Respiratory Distress. absent: Wheezes - Cardiovascular Exam Cardiovascular Exam: Tachycardia. absent: JVD - GI/Abdominal Exam GI & Abdominal Exam: Soft, Normal Bowel Sounds. absent: Distended, Guarding, Tenderness, Rebound - Rectal Exam Rectal Exam: Deferred - Extremities Exam Extremities Exam: Normal Capillary Refill, Pedal Edema (2 + bilaterally) Additional comments: RUE lymphedema - Neurological Exam Neurological Exam: Alert, Awake, CN II-XII Intact, Oriented x3 - Psychiatric Exam Psychiatric exam: Normal Affect - Skin Skin Exam: Dry, Pallor, Warm Assessment and Plan - Assessment and Plan (Free Text) Assessment: 66 y/o female PMH COPD, bilateral breast CA s/p chemo and radiation 8 years ago with bone mets to shoulder (s/p humerus resection), HTN, hyperthyroidism presented with 2 week history of worsening bilateral lower extremity swelling and weakness, unable to get herself up to her walker. Patient has mild dyspnea at baseline. She also noted to have right facial swelling for almost 2 weeks being treated with Po antibiotics as out patient. Patient admitted for generalized weakness , Hyponatremia and facial abscess. She was started on IV Clinda and Zosyn for facial abscess and lasix Iv with fluid restriction for LE edema . At present she is afebrile, Maxillofacial Ct showed possible abscess accumulation and patient has purulent discharge from an opening in oral mucosa. Evaluated by maxillofacial surgeon and underwent Incision and drainage of abscess.At present with no positive cultures. Bone scan showed possible osteomyelytis. Today complaining of increased dyspnea with minimal effort , accessory muscle use and with chest congestion. 1. Dyspnea Most likely secondary to COPD with acute bronchitis and CHF exacerbation with increased work of breathing today unable to finish full sentence Will give lasix 40 mg IV stat replace KCl Continue o2 via NC and Duonebs CXR stat 2 Facial abscess s/p drainage of abscess Patient is afebrile Maxillofacial Ct showed :Large enhancing wall collection seen around the mid and upper right mandibular ramus and mandibular neck extending anteriorly and seen medial and lateral to the right zygomatic arch as described above. This collection contains foci of air. The density and the appearance of this collection suggestive of abscess formation. The collection is seen anterior to the right parotid gland and extending medially to the posterior right oral cavity. Anoz-mn-nuwoange right maxillary sinus mucosal thickening and small air-fluid level. Partial opacification of both mastoids suggestive of mastoiditis. ID on consult: Dr Obrien. Was started on clindamycin and Zosyn IV OMFS Dr. Ambrose consulted and patient underwent Incision and drainage on 06/09 All cultures with no growth so far pathology report showed inflammatory cells, no malignancy Nuclear Bone Scan could not rule out osteomyelitis Tunneled central line placed for skilled nursing IV antibiotics Discussed with Dr. Obrien. Discontinued clindamycin and start edvancomycibn 1 g IV BId and Zosyn 3.375 mg IV Q12 . Vanco trough today 10 renal function is normal Will continue same dose of Vanco and Zosyn for 4 weeks 3. Bilateral LE edema likely CHF exacerbation with diastolic dysfx, preserved EF Still with 2 +edema today and more chest congestion Will give lasix 40 mg IV stat last echo 06/2015 NORMAL EF, +MR +diastolic dysfunction continue fluid restriction and lasix PRN PT eval appreciated . patient will benefit from TAMARA (planning discharge to [facility] ) Podiatry consult for dorsum pain and wound consult for LE abrasions appreciated 4.Hypokalemia K 3.3 replace with KCl 20 MEQ pO today Most likely diuretic induced 5.Hyponatremia most likely secondary to solute depletion and infection Continue fluid restriction 6.Acute bronchitis and COPD cont Duonebs, theophylline , spiriva, Advair on Hydrocortisone IV 100mg daily Dr. Benz consult appreciated and following restarted Theophylline low dose , 200mg daily 7.Hx breast ca, bilateral stable, s/p bilateral mastectomy continue arimidex 8.Hypertension on the low side Held BP meds if SBp < 100 d/c Metoprolol Decreased Verapamil to 40 mg TID 9. Hypothyroidism patient has history of hyperthyroidism and was on Methimazole. Now patient has developed hypothyroidism TSH 32 Endo consulted - Dr Vu following pt D/c methimazole and started Synthroid increased dose to 100 mg po QD 10. Anemia, chronic dis monitor 11.DVT ppx lovenox
[2016-06-13] MEDS: Hydrocerin CREAM TOP SCH ×2 (10:00→16:47)
[2016-06-13] MEDS: Lactobacillus Acidophilus 500 MU Cap PO SCH ×2 (10:00→16:42)
[2016-06-13] MEDS: Pantoprazole 40 mg EC Tab PO SCH (10:00)
[2016-06-13] MEDS: Multivitamin With Minerals Tab PO SCH (10:00)
[2016-06-13] MEDS: Enoxaparin 40 mg Syringe SC SCH (10:00)
[2016-06-13] MEDS: THEOPHYLLINE 400 MG T24(UNIPHYL) PO SCH (10:41)
[2016-06-13] MEDS: guaiFENesin-DM 600-30 mg ER Tab PO SCH ×2 (10:45→16:43)
--- NOTE | 2016-06-13 12:35 | RAD ---
PROCEDURE: CHEST RADIOGRAPH, 1 VIEW HISTORY: dyspnea COMPARISON: Made with comparison made with chest radiograph 06/04/2016. Comparison also made with CT scan chest 10/01/2015 FINDINGS: LUNGS: Extensive emphysematous changes with upper lobe predominance again noted however these changes are less well seen compared to high-resolution CT scan. . Increased bibasilar opacities right greater than left; findings could represent some combination of atelectasis and or infiltrate with small bilateral effusions. Interval placement right IJ decline with tip in the SVC. PLEURA: No apparent pneumothorax. CARDIOVASCULAR: Heart appears borderline enlarged. OSSEOUS STRUCTURES: Postoperative changes involving the right shoulder girdle and proximal humerus unchanged. In addition, there is a 3 level ACDF plate lower cervical spine. VISUALIZED UPPER ABDOMEN: Normal. OTHER FINDINGS: Postoperative changes left breast IMPRESSION: Extensive emphysematous changes with upper lobe predominance again noted however these changes are less well seen compared to high-resolution CT scan. . Increasea the to the bibasilar opacities right greater than left; findings could represent some combination of atelectasis and or infiltrate with small bilateral effusions.
--- NOTE | 2016-06-13 16:03 | PN ---
DATE: 06/13/2016 LOCATION: Room 404. This is a 66-year-old female with recent overt hypothyroidism presenting here with an acute exacerbat ion of COPD, still on IV steroid therapy as given. Her latest chemistries showed a BUN of 8, sodium 135, potassium 3.3, chloride 98, CO2 of 36, glucose 79 and creatinine 0.4. Her latest thyroid study showed a T4 of 1.57 with a TSH of 39.00. So at this time will continue the modified and higher dose of the levothyroxine given at 100 mcg daily as ordered. Will obtain serial chemistries and supplemen t accordingly as needed. Will follow. Polly Vu MD cc: [id number] TT: 06/13/2016 16:03:02 Confirmation # [id number] Dictation # [id number]
[2016-06-14] MEDS: Levothyroxine 100 MCG TAB PO SCH (05:33)
[2016-06-14 05:50] LABS: MEAN CELL VOLUME 68.8 fl (81.0-99.0); MEAN CORPUSCULAR HEMOGLOBIN 19.9 pg (27.0-31.0); WHITE BLOOD COUNT 5.6 K/uL (4.8-10.8)
[2016-06-14 05:55] LABS: BLOOD UREA NITROGEN 10 mg/dl (7-17); CALCIUM 7.8 mg/dL (8.4-10.2); CHLORIDE 96 mmol/L (98-107); GFR AFRICAN-AMERICAN > 60; GLUCOSE,RANDOM 71 mg/dL (65-105); POTASSIUM 3.1 MMOL/L (3.6-5.0); SODIUM 137 mmol/l (132-148)
[2016-06-14 06:07] LABS: CARBON DIOXIDE 40 mmol/L (22-30)
[2016-06-14] MEDS: Acetylcysteine 10% 4 ML IH SCH ×2 (07:38→19:38)
[2016-06-14] MEDS: Albuterol-Ipratrop 3 mg / 0.5 (3 ml) UD INH SCH ×4 (07:38→19:38)
[2016-06-14] MEDS: guaiFENesin-DM 600-30 mg ER Tab PO SCH ×2 (08:34→17:02)
[2016-06-14] MEDS: THEOPHYLLINE 400 MG T24(UNIPHYL) PO SCH (08:35)
[2016-06-14] MEDS: Multivitamin With Minerals Tab PO SCH (08:35)
[2016-06-14] MEDS: Pantoprazole 40 mg EC Tab PO SCH (08:35)
[2016-06-14] MEDS: Enoxaparin 40 mg Syringe SC SCH (08:36)
[2016-06-14] MEDS: Piperacillin/Tazobact 3.375 GM in Sodium Chloride 0.9% 100 ML IVPB SCH ×2 (08:37→21:29)
[2016-06-14] MEDS: Hydrocortisone- 100 MG in Sodium Chloride 0.9% 100 ML IV SCH (08:39)
[2016-06-14] MEDS: Lactobacillus Acidophilus 500 MU Cap PO SCH ×2 (08:42→17:01)
[2016-06-14] MEDS: Hydrocerin CREAM TOP SCH ×2 (08:43→17:02)
[2016-06-14] MEDS ORDERED: THEOPHYLLINE 400 MG T24(UNIPHYL) PO STA (10:43)
--- NOTE | 2016-06-14 10:46 | CP.PCM.PN ---
Subjective - Date & Time of Evaluation Date of Evaluation: 06/14/16 Time of Evaluation: 10:46 - Subjective Subjective: Patient is seen on rounds in the morning on telemetry. Case discussed with resident and physical exam reviewed. She continues to have dyspnea on simple conversation. Facial abscess appears to have decreased in size. Less complaint of facial pain secondary to the above. CT chest being done today. Cough remains weak and the patient is unable to expectorate. Breath sounds are diminished but present bilaterally. Coarse rhonchi are heard with coughing. Few scattered expiratory wheezes are still present posteriorly. Continue current aerosol therapy and parenteral corticosteroids. Continue present antibiotic therapy as per ID. We'll add NIPPV to patient's regimen. Patient to have PICC line today. Objective - Vital Signs/Intake and Output Vital Signs (last 24 hours): Temp Pulse Resp BP Pulse Ox 98.4 F 104 H 18 131/73 99 06/14/16 08:00 06/14/16 08:35 06/14/16 08:00 06/14/16 08:35 06/14/16 08:00 Intake and Output: 06/13/16 06/14/16 23:59 11:59 Intake Total 540 Output Total 300 Balance 240 - Medications Medications: Current Medications Acetaminophen (Tylenol 325mg Tab) 650 mg PO Q6 PRN PRN Reason: Pain, moderate (4-7) Last Admin: 06/13/16 04:32 Dose: 650 mg Acetylcysteine (Mucomyst 10% 4ml) 2 ml IH RBID [facility] Last Admin: 06/14/16 07:38 Dose: 2 ml Albuterol Sulfate (Albuterol 0.083% Inhal Aby (2.5 Mg/3 Ml) Ud) 2.5 mg INH RQ4 PRN PRN Reason: Shortness of Breath Last Admin: 06/13/16 04:39 Dose: 2.5 mg Albuterol/Ipratropium (Duoneb 3 Mg/0.5 Mg (3 Ml) Ud) 3 ml INH RQID [facility] Last Admin: 06/14/16 07:38 Dose: 3 ml Anastrozole (Arimidex 1 Mg Tab) 1 mg PO DAILY [facility] Last Admin: 06/14/16 08:42 Dose: 1 mg Aspirin (Ecotrin) 81 mg PO DAILY [facility] Last Admin: 06/14/16 08:36 Dose: 81 mg Baclofen (Lioresal) 10 mg PO HS [facility] Last Admin: 06/13/16 21:09 Dose: 10 mg Enoxaparin Sodium (Lovenox) 40 mg SC DAILY [facility] PRN Reason: Protocol Last Admin: 06/14/16 08:36 Dose: 40 mg Gabapentin (Neurontin) 600 mg PO TID [facility] Last Admin: 06/14/16 08:34 Dose: 600 mg Guaifenesin/Dextromethorphan (Mucinex-Dm 600-30 Mg) 1 tab PO BID [facility] Last Admin: 06/14/16 08:34 Dose: 1 tab Hydrocortisone Sodium Succinate 100 mg/ Sodium Chloride 100 mls @ 100 mls/hr IV DAILY [facility] Last Admin: 06/14/16 08:39 Dose: 100 mls/hr Vancomycin HCl 1 gm/ Sodium (Chloride) 250 mls @ 166.667 mls/hr IVPB Q12 [facility] Last Admin: 06/14/16 08:40 Dose: 166.667 mls/hr Piperacillin Sod/Tazobactam (Sod 3.375 gm/ Sodium Chloride) 100 mls @ 100 mls/ hr IVPB Q12 [facility] Last Admin: 06/14/16 08:37 Dose: 100 mls/hr Lactobacillus Acidophilus (Bacid Acidophilus) 1 cap PO BID [facility] Last Admin: 06/14/16 08:42 Dose: 1 cap Levothyroxine Sodium (Synthroid) 100 mcg PO 0630 [facility] Last Admin: 06/14/16 05:33 Dose: 100 mcg Multi-Ingredient Cream (Hydrocerin Cream) 1 applic TOP BID [facility] Last Admin: 06/14/16 08:43 Dose: 1 applic Multivitamins/Minerals (Therapeutic-M Tab) 1 tab PO DAILY [facility] Last Admin: 06/14/16 08:35 Dose: 1 tab Pantoprazole Sodium (Protonix Ec Tab) 40 mg PO DAILY [facility] Last Admin: 06/14/16 08:35 Dose: 40 mg Senna/Docusate Sodium (Senokot S 50 Mg-8.6 Mg) 1 tab PO HS [facility] Last Admin: 06/11/16 21:19 Dose: 1 tab Theophylline (Uniphyl) 400 mg PO DAILY [facility] Theophylline (Uniphyl) 200 mg PO STAT [facility] Stop: 06/14/16 10:44 Verapamil HCl (Calan Tab) 40 mg PO TID [facility] Last Admin: 06/14/16 08:35 Dose: 40 mg - Labs Labs: 06/14/16 05:10 06/14/16 05:10 PT 11.0 SECONDS (9.6-11.2) 06/09/16 04:10 INR 1.06 (0.92-1.08) 06/09/16 04:10 APTT 27.5 SECONDS (23.3-32.5) 06/03/16 22:33 Assessment and Plan (1) Acute bronchitis with chronic obstructive pulmonary disease (COPD) Status: Acute (2) Hyperthyroidism Status: Chronic (3) Abscess Status: Acute
[2016-06-14 11:09] LABS: IRON 24 ug/dL (37-170)
[2016-06-14] MEDS ORDERED: Potassium Chloride 20 mEq ER Tab PO ONE (11:16)
--- NOTE | 2016-06-14 15:32 | PN ---
DATE: 06/14/2016 ROOM: 404 This is a 66-year-old female with recent congestive heart failure and acute exacerbation of COPD, cur rently on IV steroid therapy as noted. She also had an abscess in the right mandibular area and is c urrently receiving IV antibiotic management at this time as noted. She is still on Solu-Medrol given as 100 mg once daily as ordered. Her latest chemistries include a BUN of 10, sodium 137, potassium 3.1, chloride 96, CO2 of 40, glucose of 71 and creatinine 0.4. Her latest thyroid study showed a T4 of 1.57 with a TSH of 39.00. So, at this time, we will repeat the thyroid studies with a T4 and free T4 with a TSH level to be und ertaken tomorrow morning as ordered. We will continue for now the levothyroxine given at 100 mcg onc e daily before breakfast as ordered. We will titrate incrementally as indicated to optimize metaboli c control. We will follow and advise accordingly. Polly Vu MD cc: [id number] TT: 06/14/2016 15:31:28 Confirmation # [id number] Dictation # [id number]
--- NOTE | 2016-06-14 16:35 | CP.PCM.PN ---
Subjective - Date & Time of Evaluation Date of Evaluation: 06/14/16 Time of Evaluation: 11:30 - Subjective Subjective: Patient was seen and examined bedside.States that is not feeling very well. With dyspnea at rest , accessory muscle use , decreased air entry bilaterally, with chest congestion and unable to expectorate. Weak cough reflex . .Physical exam significant for decreased breath sounds bilaterally Tachycardic HR 104 BP 131/73 afebrile , O2 Sat 97 % on 3 L O2 via Nc WBc 5.6 K Hgb 8.1 Objective - Vital Signs/Intake and Output Vital Signs (last 24 hours): Temp Pulse Resp BP Pulse Ox 98.8 F 103 H 20 124/56 L 98 06/14/16 16:15 06/14/16 16:15 06/14/16 16:15 06/14/16 16:15 06/14/16 16:15 Intake and Output: 06/14/16 06/14/16 06:59 18:59 Intake Total 540 Output Total 300 Balance 240 - Medications Medications: Current Medications Acetaminophen (Tylenol 325mg Tab) 650 mg PO Q6 PRN PRN Reason: Pain, moderate (4-7) Last Admin: 06/14/16 12:10 Dose: 650 mg Acetylcysteine (Mucomyst 10% 4ml) 2 ml IH RBID [facility] Last Admin: 06/14/16 07:38 Dose: 2 ml Albuterol Sulfate (Albuterol 0.083% Inhal Aby (2.5 Mg/3 Ml) Ud) 2.5 mg INH RQ4 PRN PRN Reason: Shortness of Breath Last Admin: 06/13/16 04:39 Dose: 2.5 mg Albuterol/Ipratropium (Duoneb 3 Mg/0.5 Mg (3 Ml) Ud) 3 ml INH RQID [facility] Last Admin: 06/14/16 16:02 Dose: 3 ml Anastrozole (Arimidex 1 Mg Tab) 1 mg PO DAILY [facility] Last Admin: 06/14/16 08:42 Dose: 1 mg Aspirin (Ecotrin) 81 mg PO DAILY [facility] Last Admin: 06/14/16 08:36 Dose: 81 mg Baclofen (Lioresal) 10 mg PO HS [facility] Last Admin: 06/13/16 21:09 Dose: 10 mg Enoxaparin Sodium (Lovenox) 40 mg SC DAILY [facility] PRN Reason: Protocol Last Admin: 06/14/16 08:36 Dose: 40 mg Furosemide (Lasix) 40 mg IVP DAILY [facility] Last Admin: 06/14/16 12:18 Dose: Not Given Gabapentin (Neurontin) 600 mg PO TID [facility] Last Admin: 06/14/16 12:17 Dose: 600 mg Guaifenesin/Dextromethorphan (Mucinex-Dm 600-30 Mg) 1 tab PO BID [facility] Last Admin: 06/14/16 08:34 Dose: 1 tab Hydrocortisone Sodium Succinate 100 mg/ Sodium Chloride 100 mls @ 100 mls/hr IV DAILY [facility] Last Admin: 06/14/16 08:39 Dose: 100 mls/hr Vancomycin HCl 1 gm/ Sodium (Chloride) 250 mls @ 166.667 mls/hr IVPB Q12 [facility] Last Admin: 06/14/16 08:40 Dose: 166.667 mls/hr Piperacillin Sod/Tazobactam (Sod 3.375 gm/ Sodium Chloride) 100 mls @ 100 mls/ hr IVPB Q12 [facility] Last Admin: 06/14/16 08:37 Dose: 100 mls/hr Lactobacillus Acidophilus (Bacid Acidophilus) 1 cap PO BID [facility] Last Admin: 06/14/16 08:42 Dose: 1 cap Levothyroxine Sodium (Synthroid) 100 mcg PO 0630 [facility] Last Admin: 06/14/16 05:33 Dose: 100 mcg Multi-Ingredient Cream (Hydrocerin Cream) 1 applic TOP BID [facility] Last Admin: 06/14/16 08:43 Dose: 1 applic Multivitamins/Minerals (Therapeutic-M Tab) 1 tab PO DAILY [facility] Last Admin: 06/14/16 08:35 Dose: 1 tab Pantoprazole Sodium (Protonix Ec Tab) 40 mg PO DAILY [facility] Last Admin: 06/14/16 08:35 Dose: 40 mg Senna/Docusate Sodium (Senokot S 50 Mg-8.6 Mg) 1 tab PO HS [facility] Last Admin: 06/11/16 21:19 Dose: 1 tab Theophylline (Uniphyl) 400 mg PO DAILY [facility] Verapamil HCl (Calan Tab) 40 mg PO TID [facility] Last Admin: 06/14/16 12:19 Dose: Not Given - Labs Labs: 06/14/16 05:10 06/14/16 05:10 PT 11.0 SECONDS (9.6-11.2) 06/09/16 04:10 INR 1.06 (0.92-1.08) 06/09/16 04:10 APTT 27.5 SECONDS (23.3-32.5) 06/03/16 22:33 - Constitutional Appears: Older Than Stated Age, Chronically Ill, Other - Head Exam Head Exam: ATRAUMATIC, NORMOCEPHALIC Additional comments: right facial swelling m,uch improved with no fluctuation , no erythema, some tenderness with palpation extending to submandibular area - Eye Exam Eye Exam: EOMI, Normal appearance, PERRL Pupil Exam: NORMAL ACCOMODATION - ENT Exam ENT Exam: Mucous Membranes Moist Additional comments: right inner bucal mucosa sutures in place - Neck Exam Neck Exam: Normal Inspection - Respiratory Exam Respiratory Exam: Accessory Muscle Use, Decreased Breath Sounds (bilaterally ), Prolonged Expiratory Phase, Respiratory Distress - Cardiovascular Exam Cardiovascular Exam: Tachycardia. absent: JVD - GI/Abdominal Exam GI & Abdominal Exam: Soft, Normal Bowel Sounds. absent: Distended, Guarding, Tenderness, Rebound - Rectal Exam Rectal Exam: Deferred - Extremities Exam Additional comments: right arm lymphedema LE edema 1 + bilaterally - Back Exam Back Exam: NORMAL INSPECTION - Neurological Exam Neurological Exam: Alert, Awake, CN II-XII Intact, Oriented x3 - Psychiatric Exam Psychiatric exam: Flat Affect - Skin Skin Exam: Dry, Pallor, Warm Assessment and Plan - Assessment and Plan (Free Text) Assessment: 66 y/o female PMH COPD, bilateral breast CA s/p chemo and radiation 8 years ago with bone mets to shoulder (s/p humerus resection), HTN, hyperthyroidism presented with 2 week history of worsening bilateral lower extremity swelling and weakness, unable to get herself up to her walker. Patient has mild dyspnea at baseline. She also noted to have right facial swelling for almost 2 weeks being treated with Po antibiotics as out patient. Patient admitted for generalized weakness , Hyponatremia and facial abscess. She was started on IV Clinda and Zosyn for facial abscess and lasix Iv with fluid restriction for LE edema . At present she is afebrile, Maxillofacial Ct showed possible abscess accumulation and patient had purulent discharge from an opening in oral mucosa. Evaluated by maxillofacial surgeon and underwent Incision and drainage of abscess.At present with no positive cultures. Bone scan showed possible osteomyelytis so she was started on Vancomycin and Zosyn IV for total 4 -6 weeks as per ID recommendations Today complaining of increased dyspnea with minimal effort , accessory muscle use and with chest congestion. 1. Dyspnea Most likely secondary to COPD with acute bronchitis and CHF exacerbation with increased work of breathing today unable to finish full sentence Continue lasix if allowed by BP CT chest w/o contrast today showed bilateral pleural effusion replace KCl Continue O2 via NC and Duonebs Continue Theophilline, Prednisone PO 2 Facial abscess s/p drainage of abscess Patient is afebrile Maxillofacial Ct showed :Large enhancing wall collection seen around the mid and upper right mandibular ramus and mandibular neck extending anteriorly and seen medial and lateral to the right zygomatic arch as described above. This collection contains foci of air. The density and the appearance of this collection suggestive of abscess formation. The collection is seen anterior to the right parotid gland and extending medially to the posterior right oral cavity. [id number] right maxillary sinus mucosal thickening and small air-fluid level. Partial opacification of both mastoids suggestive of mastoiditis. ID on consult: Dr Obrien. Was started on clindamycin and Zosyn IV OMFS Dr. Ambrose consulted and patient underwent Incision and drainage on 06/09 All cultures with no growth so far pathology report showed inflammatory cells, no malignancy Nuclear Bone Scan could not rule out osteomyelitis Tunneled central line placed for retirement IV antibiotics Discussed with Dr. Obrien. Discontinued clindamycin and started vancomycibn 1 g IV BId and Zosyn 3.375 mg IV Q12 . Vanco trough today 10 renal function is normal Will continue same dose of Vanco and Zosyn for 4 weeks 3. Bilateral LE edema likely CHF exacerbation with diastolic dysfx, preserved EF Still with 1 +edema today and more chest congestion last echo 06/2015 NORMAL EF, +MR +diastolic dysfunction continue fluid restriction and lasix PRN CT chest showed bilateral pleural effusion PT eval appreciated . patient will benefit from TAMARA (planning discharge to [facility] ) Podiatry consult for dorsum pain and wound consult for LE abrasions appreciated 4.Hypokalemia K 3.1 replace with KCl 40 MEQ pO today Most likely diuretic induced 5.Hyponatremia most likely secondary to solute depletion and infection Continue fluid restriction 6.Acute bronchitis and COPD cont Duonebs, theophylline , spiriva, Advair on Hydrocortisone IV 100mg daily Dr. Benz consult appreciated and following Given extra dose of Theophylline 200mg today Incresaed Theophilline to 400 mg po daily 7.Hx breast ca, bilateral stable, s/p bilateral mastectomy continue arimidex 8.Hypertension on the low side Held BP meds if SBp < 100 d/c Metoprolol Decreased Verapamil to 40 mg TID 9. Hypothyroidism patient has history of hyperthyroidism and was on Methimazole. Now patient has developed hypothyroidism TSH 32 Endo consulted - Dr Vu following pt D/c methimazole and started Synthroid increased dose to 100 mg po QD 10. Anemia, chronic dis monitor iron profile showedcdaneni awork up showed depleted iron stores Will give Venofer IV 200 mg today 11.DVT ppx lovenox
--- NOTE | 2016-06-14 20:19 | CARD ---
APPROVED REPORT EXAM: Two-dimensional and M-mode echocardiogram with Doppler and color Doppler. Other Information Quality : AverageRhythm : Tachycardia INDICATION LV Function:SystolicDiastolic 2D DIMENSIONS IVSd0.99 (0.7-1.1cm)LVDd4.10 (3.9-5.9cm) PWd0.86 (0.7-1.1cm)IVSs1.12 (0.8-1.2cm) LVDs3.58 (2.5-4.0cm)FS (%) 12.7 % PWs1.14 (0.8-1.2cm) Mitral Valve E/A ratio0.0 TDI E/Lateral E'0.0E/Medial E'0.0 LEFT VENTRICLE The left ventricle is normal size. There is normal left ventricular wall thickness. Left ventricle systolic function is mildly to moderately impaired. The LVEF is 40-45%. LVEF interpretation limited by tachycardia. There is normal LV segmental wall motion. Transmitral Doppler flow pattern is Grade IV-fixed restrictive diastolic dysfunction. No left ventricle thrombus noted on this study. There is no ventricular septal defect visualized. There is no left ventricular aneurysm. There is no mass noted in the left ventricle. RIGHT VENTRICLE The right ventricle is moderately dilated. There is normal right ventricular wall thickness. Systolic function is mildly to moderately reduced. ATRIA The left atrium size is normal. The right atrium size is normal. The interatrial septum is intact with no evidence for an atrial septal defect. AORTIC VALVE The aortic valve is normal in structure and function. No aortic regurgitation is present. There is no aortic valvular stenosis. There is no aortic valvular vegetation. MITRAL VALVE The mitral valve is normal in structure and function. There is no evidence of mitral valve prolapse. There is no mitral valve stenosis. There is no mitral valve regurgitation noted. TRICUSPID VALVE The tricuspid valve is normal in structure and function. There is no tricuspid valve regurgitation noted. There is no tricuspid valve prolapse or vegetation. There is no tricuspid valve stenosis. PULMONIC VALVE The pulmonary valve is normal in structure and function. There is no pulmonic valvular regurgitation. There is no pulmonic valvular stenosis. GREAT VESSELS The aortic root is normal in size. The ascending aorta is normal in size. The IVC is normal in size and collapses >50% with inspiration. PERICARDIAL EFFUSION The pericardium appears normal. There is no pleural effusion. <Conclusion> Mild to Moderately Decreased LVEF 40-45% LVEF determination limited by tachycardia Technically Limited Views RV is moderately dilated with mild to moderately decreased RV function Diastolic Inflow Pattern is Restrictive
[2016-06-15] MEDS: Albuterol 0.083% Inhal Sol (2.5 mg/3 mL) UD INH PRN ×2 (00:07→09:15)
[2016-06-15 05:37] LABS: BASO % 0.2 % (0.0-2.0); EOS % 0.3 % (0.0-4.0); HEMATOCRIT 27.2 % (34.0-47.0); MEAN CELL VOLUME 69.4 fl (81.0-99.0); MEAN CORPUSCULAR HEMOGLOBIN 20.3 pg (27.0-31.0); MEAN CORPUSCULAR HGB CONC 29.3 g/dL (33.0-37.0); MEAN PLATELET VOLUME 6.4 fl (7.2-11.7); MONO # 0.7 K/uL (0.0-0.8); MONO % 8.7 % (0.0-10.0); NEUT # 5.9 K/uL (1.8-7.0); NEUT % 77.8 % (50.0-75.0); NRBC % 0.1 % (0.0-0.0); RED CELL DISTRIBUTION WIDTH 23.5 % (11.5-14.5); WHITE BLOOD COUNT 7.6 K/uL (4.8-10.8)
[2016-06-15 05:52] LABS: ALB/GLOB RATIO 0.9 (1.0-2.1); ALKALINE PHOSPHATASE 76 U/L (38-126); ALT/SGPT 15 U/L (9-52); AST/SGOT 20 U/L (14-36); BILIRUBIN,TOTAL 0.3 mg/dl (0.2-1.3); BLOOD UREA NITROGEN 11 mg/dl (7-17); CALCIUM 8.4 mg/dL (8.4-10.2); CHLORIDE 96 mmol/L (98-107); GFR AFRICAN-AMERICAN > 60; GLUCOSE,RANDOM 78 mg/dL (65-105); POTASSIUM 3.9 MMOL/L (3.6-5.0); SODIUM 137 mmol/l (132-148); TOTAL PROTEIN 4.5 G/DL (6.3-8.2)
[2016-06-15] MEDS: Levothyroxine 100 MCG TAB PO SCH (06:00)
[2016-06-15 06:04] LABS: CARBON DIOXIDE 40 mmol/L (22-30)
[2016-06-15 06:05] LABS: T4 3.71 ug/dl (5.5-11.0)
[2016-06-15] MEDS: Albuterol-Ipratrop 3 mg / 0.5 (3 ml) UD INH SCH ×4 (07:07→19:20)
[2016-06-15] MEDS: Acetylcysteine 10% 4 ML IH SCH ×2 (09:13→19:20)
[2016-06-15] MEDS: Albuterol-Ipratrop 3 mg / 0.5 (3 ml) UD INH STA (09:14)
[2016-06-15] MEDS: Lactobacillus Acidophilus 500 MU Cap PO SCH ×2 (09:37→16:05)
[2016-06-15] MEDS: Hydrocerin CREAM TOP SCH ×2 (09:39→17:00)
[2016-06-15] MEDS: guaiFENesin-DM 600-30 mg ER Tab PO SCH ×2 (09:40→16:07)
[2016-06-15] MEDS: Enoxaparin 40 mg Syringe SC SCH (09:40)
[2016-06-15] MEDS: Pantoprazole 40 mg EC Tab PO SCH (09:41)
[2016-06-15] MEDS: Multivitamin With Minerals Tab PO SCH (09:42)
[2016-06-15] MEDS: THEOPHYLLINE 400 MG T24(UNIPHYL) PO SCH (09:42)
[2016-06-15] MEDS: Piperacillin/Tazobact 3.375 GM in Sodium Chloride 0.9% 100 ML IVPB SCH ×2 (10:03→20:49)
--- NOTE | 2016-06-15 10:42 | CT ---
PROCEDURE: CT Chest without contrast HISTORY: SOB COMPARISON: 10/01/2015 TECHNIQUE: Contiguous axial images were obtained through the chest without intravenous contrast enhancement. Sagittal and coronal reconstructions were performed. Radiation dose (DLP): 379.23 mGy-cm. FINDINGS: LUNGS: Extensive centrilobular pulmonary emphysema, unchanged. Minimal bilateral lower lobe compressive atelectasis secondary to pleural effusion. MEDIASTINUM: Unremarkable thoracic aorta. No aneurysm. Normal sized heart. Main pulmonary artery unremarkable. No vascular congestion. No lymphadenopathy. Status post right thyroid lobectomy. Enlargement of left thyroid lobe unchanged from prior examination. Probable mass in left thyroid lobe as seen on prior contrast CT. Recommend correlation with ultrasound examination. PLEURA: Small to moderate bilateral pleural effusion. No pneumothorax. BONES: Mild thoracic levoscoliosis. Multilevel degenerative disc disease in lower thoracic and in lumbar spine. . No evidence of fracture. UPPER ABDOMEN: Stable bilobed low-density mass in posterior right hepatic lobe, likely cyst. This measures 3.3 x 2.9 cm. Status post cholecystectomy. OTHER FINDINGS: Status post left mastectomy. Surgical clips in both axillae. IMPRESSION: Small to moderate bilateral pleural effusion with minimal bilateral lower lobe compressive atelectasis. Extensive centrilobular pulmonary emphysema. Left mastectomy. Additional minor findings as above.
[2016-06-15] MEDS ORDERED: Lidocaine 1% Inj (20ml) ONE (11:00)
--- NOTE | 2016-06-15 11:40 | CP.PCM.PN ---
<Heladio Louie T - Last Filed: 06/15/16 11:43> Subjective - Date & Time of Evaluation Date of Evaluation: 06/15/16 Time of Evaluation: 09:00 - Subjective Subjective: Pulmonology Progress Note: Pt is seen and examined at bedside. Pt appears to be less comfortable and exhibiting signs of mild dyspnea compared to previous days, although R sided facial swelling remains improved from original visit. She is still having difficulty expectorating sputum despite her congested cough. AAOx3 EOMI, PERRL Neck supple, Trachea midline No dullness on chest percussion. Coarse rhonchi are heard bilaterally with coughing. Occasional faint expiratory wheezes heard in the lower lobes. No bronchial breathing or egophony. RRR, S1 S2 appreciated Continue IV Vanco & Zosyn Will begin pressure-assisted breathing device Objective - Vital Signs/Intake and Output Vital Signs (last 24 hours): Temp Pulse Resp BP Pulse Ox 97.6 F 116 H 22 129/75 100 06/15/16 08:05 06/15/16 08:05 06/15/16 10:21 06/15/16 09:39 06/15/16 08:05 - Medications Medications: Current Medications Acetaminophen (Tylenol 325mg Tab) 650 mg PO Q6 PRN PRN Reason: Pain, moderate (4-7) Last Admin: 06/14/16 12:10 Dose: 650 mg Acetylcysteine (Mucomyst 10% 4ml) 2 ml IH RBID [facility] Last Admin: 06/15/16 09:13 Dose: 2 ml Albuterol Sulfate (Albuterol 0.083% Inhal Aby (2.5 Mg/3 Ml) Ud) 2.5 mg INH RQ4 PRN PRN Reason: Shortness of Breath Last Admin: 06/15/16 09:15 Dose: 2.5 mg Albuterol/Ipratropium (Duoneb 3 Mg/0.5 Mg (3 Ml) Ud) 3 ml INH RQID [facility] Last Admin: 06/15/16 07:07 Dose: 3 ml Anastrozole (Arimidex 1 Mg Tab) 1 mg PO DAILY [facility] Last Admin: 06/15/16 10:04 Dose: 1 mg Aspirin (Ecotrin) 81 mg PO DAILY [facility] Last Admin: 06/15/16 09:39 Dose: 81 mg Baclofen (Lioresal) 10 mg PO HS [facility] Last Admin: 06/14/16 21:29 Dose: 10 mg Enoxaparin Sodium (Lovenox) 40 mg SC DAILY [facility] PRN Reason: Protocol Last Admin: 06/15/16 09:40 Dose: Not Given Furosemide (Lasix) 40 mg IVP DAILY [facility] Last Admin: 06/15/16 09:39 Dose: 40 mg Gabapentin (Neurontin) 600 mg PO TID [facility] Last Admin: 06/15/16 09:41 Dose: 600 mg Guaifenesin/Dextromethorphan (Mucinex-Dm 600-30 Mg) 1 tab PO BID [facility] Last Admin: 06/15/16 09:40 Dose: 1 tab Vancomycin HCl 1 gm/ Sodium (Chloride) 250 mls @ 166.667 mls/hr IVPB Q12 [facility] Last Admin: 06/15/16 09:44 Dose: 166.667 mls/hr Piperacillin Sod/Tazobactam (Sod 3.375 gm/ Sodium Chloride) 100 mls @ 100 mls/ hr IVPB Q12 [facility] Last Admin: 06/15/16 10:03 Dose: 100 mls/hr Iron Sucrose 100 mg/ Sodium (Chloride) 105 mls @ 105 mls/hr IVPB DAILY [facility] Hydrocortisone Sodium Succinate 100 mg/ Sodium Chloride 100 mls @ 100 mls/hr IV Q12 [facility] Lactobacillus Acidophilus (Bacid Acidophilus) 1 cap PO BID [facility] Last Admin: 06/15/16 09:37 Dose: 1 cap Levothyroxine Sodium (Synthroid) 100 mcg PO 0630 [facility] Last Admin: 06/15/16 06:00 Dose: 100 mcg Multi-Ingredient Cream (Hydrocerin Cream) 1 applic TOP BID [facility] Last Admin: 06/15/16 09:39 Dose: 1 applic Multivitamins/Minerals (Therapeutic-M Tab) 1 tab PO DAILY [facility] Last Admin: 06/15/16 09:42 Dose: 1 tab Pantoprazole Sodium (Protonix Ec Tab) 40 mg PO DAILY [facility] Last Admin: 06/15/16 09:41 Dose: 40 mg Senna/Docusate Sodium (Senokot S 50 Mg-8.6 Mg) 1 tab PO HS [facility] Last Admin: 06/11/16 21:19 Dose: 1 tab Theophylline (Uniphyl) 400 mg PO DAILY [facility] Last Admin: 06/15/16 09:42 Dose: 400 mg Verapamil HCl (Calan Tab) 40 mg PO TID [facility] Last Admin: 06/14/16 17:02 Dose: 40 mg Zolpidem Tartrate (Ambien) 5 mg PO HS PRN PRN Reason: Sleep Last Admin: 06/14/16 22:30 Dose: 5 mg - Labs Labs: 06/15/16 04:00 06/15/16 05:00 PT 11.0 SECONDS (9.6-11.2) 06/09/16 04:10 INR 1.06 (0.92-1.08) 06/09/16 04:10 APTT 27.5 SECONDS (23.3-32.5) 06/03/16 22:33 Assessment and Plan (1) Acute bronchitis with chronic obstructive pulmonary disease (COPD) Status: Acute (2) Hyperthyroidism Status: Chronic (3) Abscess Status: Acute <Bala Benz - Last Filed: 06/19/16 12:38> Subjective - Date & Time of Evaluation Date of Evaluation: 06/15/16 Time of Evaluation: 09:00 - Subjective Subjective: Patient seen on rounds with the resident. Case discussed and assessment as well as plan agreed to. Objective - Vital Signs/Intake and Output Vital Signs (last 24 hours): Temp Pulse Resp BP Pulse Ox 98.1 F 116 H 19 117/53 L 94 L 06/19/16 12:00 06/19/16 12:13 06/19/16 12:00 06/19/16 12:13 06/19/16 12:00 Intake and Output: 06/19/16 06/19/16 11:59 23:59 Intake Total 1300 100 Output Total 775 400 Balance 525 -300 - Medications Medications: Current Medications Acetaminophen (Tylenol 325mg Tab) 650 mg PO Q6 PRN PRN Reason: Pain, moderate (4-7) Last Admin: 06/18/16 06:39 Dose: 650 mg Acetylcysteine (Mucomyst 10% 4ml) 2 ml IH RQID [facility] Last Admin: 06/19/16 11:20 Dose: 2 ml Albuterol Sulfate (Albuterol 0.083% Inhal Aby (2.5 Mg/3 Ml) Ud) 2.5 mg INH RQ4 PRN PRN Reason: Shortness of Breath Last Admin: 06/18/16 22:00 Dose: 2.5 mg Albuterol/Ipratropium (Duoneb 3 Mg/0.5 Mg (3 Ml) Ud) 3 ml INH RQID [facility] Last Admin: 06/19/16 11:20 Dose: 3 ml Anastrozole (Arimidex 1 Mg Tab) 1 mg PO DAILY [facility] Last Admin: 06/19/16 09:18 Dose: 1 mg Aspirin (Ecotrin) 81 mg PO DAILY [facility] Last Admin: 06/19/16 09:21 Dose: 81 mg Baclofen (Lioresal) 10 mg PO HS [facility] Last Admin: 06/18/16 23:23 Dose: 10 mg Capsaicin (Trixaicin Cream) 1 applic TOP BID [facility] Last Admin: 06/19/16 09:24 Dose: 1 applic Enoxaparin Sodium (Lovenox) 40 mg SC DAILY [facility] PRN Reason: Protocol Last Admin: 06/19/16 09:21 Dose: 40 mg Furosemide (Lasix) 40 mg IVP DAILY [facility] Last Admin: 06/19/16 09:21 Dose: 40 mg Gabapentin (Neurontin) 600 mg PO TID [facility] Last Admin: 06/19/16 12:15 Dose: 600 mg Iron Sucrose 100 mg/ Sodium (Chloride) 105 mls @ 105 mls/hr IVPB DAILY [facility] Last Admin: 06/19/16 11:10 Dose: 105 mls/hr Hydrocortisone Sodium Succinate 100 mg/ Sodium Chloride 100 mls @ 100 mls/hr IV Q12 [facility] Last Admin: 06/19/16 09:23 Dose: 100 mls/hr Vancomycin HCl 500 mg/ Sodium (Chloride) 100 mls @ 100 mls/hr IVPB Q12H [facility] Last Admin: 06/19/16 09:24 Dose: 100 mls/hr Meropenem 1 gm/ Sodium (Chloride) 100 mls @ 100 mls/hr IVPB Q12@0800,2000 [facility] Last Admin: 06/19/16 09:22 Dose: 100 mls/hr Lactobacillus Acidophilus (Bacid Acidophilus) 1 cap PO BID [facility] Last Admin: 06/19/16 09:26 Dose: 1 cap Levothyroxine Sodium (Synthroid) 100 mcg PO 0630 [facility] Last Admin: 06/19/16 05:51 Dose: 100 mcg Multi-Ingredient Cream (Hydrocerin Cream) 1 applic TOP BID [facility] Last Admin: 06/19/16 09:44 Dose: 1 applic Multivitamins/Minerals (Therapeutic-M Tab) 1 tab PO DAILY [facility] Last Admin: 06/19/16 09:24 Dose: 1 tab Pantoprazole Sodium (Protonix Ec Tab) 40 mg PO DAILY [facility] Last Admin: 06/19/16 09:23 Dose: 40 mg Potassium Chloride (Potassium Chloride Oral Soln) 20 meq PO DAILY [facility] Senna/Docusate Sodium (Senokot S 50 Mg-8.6 Mg) 1 tab PO HS [facility] Last Admin: 06/11/16 21:19 Dose: 1 tab Theophylline (Uniphyl) 400 mg PO DAILY [facility] Last Admin: 06/19/16 09:24 Dose: 400 mg Verapamil HCl (Calan Tab) 40 mg PO TID [facility] Last Admin: 06/19/16 12:13 Dose: 40 mg Zolpidem Tartrate (Ambien) 5 mg PO HS PRN PRN Reason: Sleep Last Admin: 06/17/16 21:14 Dose: 5 mg - Labs Labs: 06/19/16 05:30 06/19/16 05:30 PT 11.0 SECONDS (9.6-11.2) 06/09/16 04:10 INR 1.06 (0.92-1.08) 06/09/16 04:10 APTT 27.5 SECONDS (23.3-32.5) 06/03/16 22:33 Assessment and Plan (1) Acute bronchitis with chronic obstructive pulmonary disease (COPD) Status: Acute (2) Hyperthyroidism Status: Chronic (3) Abscess Status: Acute
--- NOTE | 2016-06-15 14:29 | CP.PCM.PN ---
Subjective - Date & Time of Evaluation Date of Evaluation: 06/15/16 Time of Evaluation: 10:00 - Subjective Subjective: Patient was seen and examined bedside.With dyspnea at rest , accessory muscle use , decreased air entry bilaterally, with chest congestion and unable to expectorate. Weak cough reflex . Physical exam significant for decreased breath sounds bilaterally Tachycardic HR 112 BP 115/74 afebrile , O2 Sat 97 % on 3 L O2 via Nc WBc 7.[address] chest with small to moderate bilateral pleural effusion Echo : EF 40-45 5 , dilated RV Objective - Vital Signs/Intake and Output Vital Signs (last 24 hours): Temp Pulse Resp BP Pulse Ox 98.3 F 119 H 18 115/74 96 06/15/16 12:20 06/15/16 12:20 06/15/16 12:20 06/15/16 12:20 06/15/16 12:20 - Medications Medications: Current Medications Acetaminophen (Tylenol 325mg Tab) 650 mg PO Q6 PRN PRN Reason: Pain, moderate (4-7) Last Admin: 06/14/16 12:10 Dose: 650 mg Acetylcysteine (Mucomyst 10% 4ml) 2 ml IH RBID [facility] Last Admin: 06/15/16 09:13 Dose: 2 ml Albuterol Sulfate (Albuterol 0.083% Inhal Aby (2.5 Mg/3 Ml) Ud) 2.5 mg INH RQ4 PRN PRN Reason: Shortness of Breath Last Admin: 06/15/16 09:15 Dose: 2.5 mg Albuterol/Ipratropium (Duoneb 3 Mg/0.5 Mg (3 Ml) Ud) 3 ml INH RQID [facility] Last Admin: 06/15/16 11:44 Dose: 3 ml Anastrozole (Arimidex 1 Mg Tab) 1 mg PO DAILY [facility] Last Admin: 06/15/16 10:04 Dose: 1 mg Aspirin (Ecotrin) 81 mg PO DAILY [facility] Last Admin: 06/15/16 09:39 Dose: 81 mg Baclofen (Lioresal) 10 mg PO HS [facility] Last Admin: 06/14/16 21:29 Dose: 10 mg Enoxaparin Sodium (Lovenox) 40 mg SC DAILY [facility] PRN Reason: Protocol Last Admin: 06/15/16 09:40 Dose: Not Given Furosemide (Lasix) 40 mg IVP DAILY [facility] Last Admin: 06/15/16 09:39 Dose: 40 mg Gabapentin (Neurontin) 600 mg PO TID [facility] Last Admin: 06/15/16 13:33 Dose: 600 mg Guaifenesin/Dextromethorphan (Mucinex-Dm 600-30 Mg) 1 tab PO BID [facility] Last Admin: 06/15/16 09:40 Dose: 1 tab Vancomycin HCl 1 gm/ Sodium (Chloride) 250 mls @ 166.667 mls/hr IVPB Q12 [facility] Last Admin: 06/15/16 09:44 Dose: 166.667 mls/hr Piperacillin Sod/Tazobactam (Sod 3.375 gm/ Sodium Chloride) 100 mls @ 100 mls/ hr IVPB Q12 [facility] Last Admin: 06/15/16 10:03 Dose: 100 mls/hr Iron Sucrose 100 mg/ Sodium (Chloride) 105 mls @ 105 mls/hr IVPB DAILY [facility] Hydrocortisone Sodium Succinate 100 mg/ Sodium Chloride 100 mls @ 100 mls/hr IV Q12 [facility] Lactobacillus Acidophilus (Bacid Acidophilus) 1 cap PO BID [facility] Last Admin: 06/15/16 09:37 Dose: 1 cap Levothyroxine Sodium (Synthroid) 100 mcg PO 0630 [facility] Last Admin: 06/15/16 06:00 Dose: 100 mcg Multi-Ingredient Cream (Hydrocerin Cream) 1 applic TOP BID [facility] Last Admin: 06/15/16 09:39 Dose: 1 applic Multivitamins/Minerals (Therapeutic-M Tab) 1 tab PO DAILY [facility] Last Admin: 06/15/16 09:42 Dose: 1 tab Pantoprazole Sodium (Protonix Ec Tab) 40 mg PO DAILY [facility] Last Admin: 06/15/16 09:41 Dose: 40 mg Senna/Docusate Sodium (Senokot S 50 Mg-8.6 Mg) 1 tab PO HS [facility] Last Admin: 06/11/16 21:19 Dose: 1 tab Theophylline (Uniphyl) 400 mg PO DAILY [facility] Last Admin: 06/15/16 09:42 Dose: 400 mg Verapamil HCl (Calan Tab) 40 mg PO TID [facility] Last Admin: 06/15/16 13:33 Dose: 40 mg Zolpidem Tartrate (Ambien) 5 mg PO HS PRN PRN Reason: Sleep Last Admin: 06/14/16 22:30 Dose: 5 mg - Labs Labs: 06/15/16 04:00 06/15/16 05:00 PT 11.0 SECONDS (9.6-11.2) 06/09/16 04:10 INR 1.06 (0.92-1.08) 06/09/16 04:10 APTT 27.5 SECONDS (23.3-32.5) 06/03/16 22:33 - Constitutional Appears: Chronically Ill, Other (with dyspnea at rest and accessory muscle use ) - Head Exam Head Exam: NORMOCEPHALIC Additional comments: right mandibular area swelling extending down to submandibular area, not tender , no erythema, no fluctuation , hard to touch - Eye Exam Eye Exam: EOMI, Normal appearance, PERRL Pupil Exam: NORMAL ACCOMODATION - ENT Exam ENT Exam: Mucous Membranes Moist, Normal Exam - Neck Exam Neck Exam: Normal Inspection - Respiratory Exam Respiratory Exam: Accessory Muscle Use, Decreased Breath Sounds (decreased air entry bilaterally , very congested ), Prolonged Expiratory Phase, Respiratory Distress. absent: Wheezes - Cardiovascular Exam Cardiovascular Exam: Tachycardia. absent: JVD - GI/Abdominal Exam GI & Abdominal Exam: Soft, Normal Bowel Sounds. absent: Distended, Guarding, Tenderness, Rebound - Rectal Exam Rectal Exam: Deferred - Extremities Exam Extremities Exam: Pedal Edema (2 +) Additional comments: RUE lymphedema LE 2 + edema bilaterally - Neurological Exam Neurological Exam: Alert, Awake, Oriented x3 - Psychiatric Exam Psychiatric exam: Normal Affect - Skin Skin Exam: Dry, Pallor, Warm Assessment and Plan - Assessment and Plan (Free Text) Assessment: 66 y/o female PMH COPD, bilateral breast CA s/p chemo and radiation 8 years ago with bone mets to shoulder (s/p humerus resection), HTN, hyperthyroidism presented with 2 week history of worsening bilateral lower extremity swelling and weakness, unable to get herself up to her walker. Patient has mild dyspnea at baseline. She also noted to have right facial swelling for almost 2 weeks being treated with Po antibiotics as out patient. Patient admitted for generalized weakness , Hyponatremia and facial abscess. She was started on IV Clinda and Zosyn for facial abscess and lasix Iv with fluid restriction for LE edema . At present she is afebrile, Maxillofacial Ct showed possible abscess accumulation and patient had purulent discharge from an opening in oral mucosa. Evaluated by maxillofacial surgeon and underwent Incision and drainage of abscess.At present with no positive cultures. Bone scan showed possible osteomyelytis so she was started on Vancomycin and Zosyn IV for total 4 -6 weeks as per ID recommendations Still with dyspnea at rest whil beryl 3 l O2 via NC, with accessory muscle use and with chest congestion , unable to expectorate 1. Dyspnea Most likely secondary to COPD excerbation with acute bronchitis and CHF exacerbation with increased work of breathing , accessory muscle use, decreased air entry bilaterally CT chest w/o contrast showed small to moderate bilateral pleural effusion Discussed with IR for possible thoracenthesis to help with work of breathing .Not enough fluid seen on US for thoracenthesis Continue lasix if allowed by BP Continue O2 via NC and Duonebs Increase hydrocortizone to 100 mg IV BID Continue Theophylline [address] on high Flow O2 30 l/min on FIO2 28 % Continue Chest PT and Acapella therapy 2 Facial abscess s/p drainage of abscess Patient is afebrile, improving Maxillofacial Ct showed :Large enhancing wall collection seen around the mid and upper right mandibular ramus and mandibular neck extending anteriorly and seen medial and lateral to the right zygomatic arch as described above. This collection contains foci of air. The density and the appearance of this collection suggestive of abscess formation. The collection is seen anterior to the right parotid gland and extending medially to the posterior right oral cavity. [id number]-[id number] right maxillary sinus mucosal thickening and small air-fluid level. Partial opacification of both mastoids suggestive of mastoiditis. ID on consult: Dr Obrien. Was started on clindamycin and Zosyn IV OMFS Dr. Ambrose consulted and patient underwent Incision and drainage on 06/09 All cultures with no growth so far pathology report showed inflammatory cells, no malignancy Nuclear Bone Scan could not rule out osteomyelitis Tunneled central line placed for assisted IV antibiotics Discussed with Dr. Obrien. Discontinued clindamycin and started vancomycibn 1 g IV BID and Zosyn 3.375 mg IV Q12 . Will continue same dose of Vanco and Zosyn for 4-6 weeks 3. Bilateral LE edema likely CHF exacerbation with diastolic dysfx, Echo showed EF 40-45 % and dilated RV Still with 1 +edema today and more chest congestion continue fluid restriction and lasix PRN CT chest showed bilateral small to moderate pleural effusion Continue lasix PRN if tolerated PT eval appreciated . patient will benefit from TAMARA (planning discharge to [facility] ) Podiatry consult for dorsum pain and wound consult for LE abrasions appreciated 4.Hypokalemia Most likely diuretic induced K 3.9 today 5.Hyponatremia most likely secondary to solute depletion and infection Continue fluid restriction 6.Acute bronchitis and COPD cont Duonebs, theophylline , spiriva, Advair Increased Hydrocortisone to 100mg IV BID Dr. Benz consult appreciated and following Increased Theophilline to 400 mg po daily 7.Hx breast ca, bilateral stable, s/p bilateral mastectomy continue arimidex 8.Hypertension on the low side Held BP meds if SBp < 100 d/c Metoprolol Decreased Verapamil to 40 mg TID 9. Hypothyroidism patient has history of hyperthyroidism and was on Methimazole. Now patient has developed hypothyroidism TSH 32 Endo consulted - Dr Vu following pt D/c methimazole and started Synthroid increased dose to 100 mg po QD 10. Anemia, chronic dis monitor anemia work up showed depleted iron stores Started Venofer IV 200 11.DVT ppx lovenox
--- NOTE | 2016-06-15 16:39 | CP.PCM.PN ---
Subjective - Date & Time of Evaluation Date of Evaluation: 06/15/16 Time of Evaluation: 16:38 - Subjective Subjective: ID NOTE NO CULTURES AVAILABLE OSTEOMYELITIS PER OUR DISCUSSIONS WILL NEED TOTAL OF 6 WEEKS OF IV ANTBIOTICS Objective - Vital Signs/Intake and Output Vital Signs (last 24 hours): Temp Pulse Resp BP Pulse Ox 98.2 F 101 H 20 103/60 91 L 06/15/16 15:58 06/15/16 15:58 06/15/16 15:58 06/15/16 16:05 06/15/16 16:20 - Medications Medications: Current Medications Acetaminophen (Tylenol 325mg Tab) 650 mg PO Q6 PRN PRN Reason: Pain, moderate (4-7) Last Admin: 06/14/16 12:10 Dose: 650 mg Acetylcysteine (Mucomyst 10% 4ml) 2 ml IH RBID [facility] Last Admin: 06/15/16 09:13 Dose: 2 ml Albuterol Sulfate (Albuterol 0.083% Inhal Aby (2.5 Mg/3 Ml) Ud) 2.5 mg INH RQ4 PRN PRN Reason: Shortness of Breath Last Admin: 06/15/16 09:15 Dose: 2.5 mg Albuterol/Ipratropium (Duoneb 3 Mg/0.5 Mg (3 Ml) Ud) 3 ml INH RQID [facility] Last Admin: 06/15/16 15:34 Dose: 3 ml Anastrozole (Arimidex 1 Mg Tab) 1 mg PO DAILY [facility] Last Admin: 06/15/16 10:04 Dose: 1 mg Aspirin (Ecotrin) 81 mg PO DAILY [facility] Last Admin: 06/15/16 09:39 Dose: 81 mg Baclofen (Lioresal) 10 mg PO HS [facility] Last Admin: 06/14/16 21:29 Dose: 10 mg Enoxaparin Sodium (Lovenox) 40 mg SC DAILY [facility] PRN Reason: Protocol Last Admin: 06/15/16 09:40 Dose: Not Given Furosemide (Lasix) 40 mg IVP DAILY [facility] Last Admin: 06/15/16 09:39 Dose: 40 mg Gabapentin (Neurontin) 600 mg PO TID [facility] Last Admin: 06/15/16 16:07 Dose: 600 mg Guaifenesin/Dextromethorphan (Mucinex-Dm 600-30 Mg) 1 tab PO BID [facility] Last Admin: 06/15/16 16:07 Dose: 1 tab Vancomycin HCl 1 gm/ Sodium (Chloride) 250 mls @ 166.667 mls/hr IVPB Q12 [facility] Last Admin: 06/15/16 09:44 Dose: 166.667 mls/hr Piperacillin Sod/Tazobactam (Sod 3.375 gm/ Sodium Chloride) 100 mls @ 100 mls/ hr IVPB Q12 [facility] Last Admin: 06/15/16 10:03 Dose: 100 mls/hr Iron Sucrose 100 mg/ Sodium (Chloride) 105 mls @ 105 mls/hr IVPB DAILY [facility] Last Admin: 06/15/16 10:00 Dose: 105 mls/hr Hydrocortisone Sodium Succinate 100 mg/ Sodium Chloride 100 mls @ 100 mls/hr IV Q12 [facility] Lactobacillus Acidophilus (Bacid Acidophilus) 1 cap PO BID [facility] Last Admin: 06/15/16 16:05 Dose: 1 cap Levothyroxine Sodium (Synthroid) 100 mcg PO 0630 [facility] Last Admin: 06/15/16 06:00 Dose: 100 mcg Multi-Ingredient Cream (Hydrocerin Cream) 1 applic TOP BID [facility] Last Admin: 06/15/16 09:39 Dose: 1 applic Multivitamins/Minerals (Therapeutic-M Tab) 1 tab PO DAILY [facility] Last Admin: 06/15/16 09:42 Dose: 1 tab Pantoprazole Sodium (Protonix Ec Tab) 40 mg PO DAILY [facility] Last Admin: 06/15/16 09:41 Dose: 40 mg Senna/Docusate Sodium (Senokot S 50 Mg-8.6 Mg) 1 tab PO HS [facility] Last Admin: 06/11/16 21:19 Dose: 1 tab Theophylline (Uniphyl) 400 mg PO DAILY [facility] Last Admin: 06/15/16 09:42 Dose: 400 mg Verapamil HCl (Calan Tab) 40 mg PO TID [facility] Last Admin: 06/15/16 16:05 Dose: 40 mg Zolpidem Tartrate (Ambien) 5 mg PO HS PRN PRN Reason: Sleep Last Admin: 06/14/16 22:30 Dose: 5 mg - Labs Labs: 06/15/16 04:00 06/15/16 05:00 PT 11.0 SECONDS (9.6-11.2) 06/09/16 04:10 INR 1.06 (0.92-1.08) 06/09/16 04:10 APTT 27.5 SECONDS (23.3-32.5) 06/03/16 22:33
[2016-06-15] MEDS: Hydrocortisone- 100 MG in Sodium Chloride 0.9% 100 ML IV SCH (20:48)
--- NOTE | 2016-06-15 21:19 | PN ---
DATE: 06/15/2016 ROOM: 404. This is a 66-year-old female presenting here with congestive heart failure and acute exacerbation of COPD, currently on IV steroid therapy, and is also now being followed closely for metabolic managemen t. She also has a long-standing history of hyperthyroidism, and has been on Tapazole medications up until the time of admission where she presented with hypothyroidism, and has since then been switched over to levothyroxine replacement therapy as given. Her latest thyroid studies showed a T4 of 3.71 with a TSH of 41.10. The latest chemistries include a BUN of 11, sodium 137, potassium 3.9, chloride 96, CO2 of 40, glucos e 78, and creatinine. So at this time, will continue the levothyroxine modified to higher dose of 100 mcg daily before mo kfast as ordered. Will obtain serial chemistries and supplement accordingly as needed. We will also obtain serial thyroid studies and adjust her dose regimen accordingly. Will follow. Polly Vu MD cc: [id number] TT: 06/15/2016 21:19:05 Confirmation # [id number] Dictation # [id number] jn
[2016-06-16] MEDS: Albuterol 0.083% Inhal Sol (2.5 mg/3 mL) UD INH PRN (00:29)
[2016-06-16 04:57] LABS: BLOOD UREA NITROGEN 9 mg/dl (7-17); CALCIUM 8.1 mg/dL (8.4-10.2); CHLORIDE 92 mmol/L (98-107); GFR AFRICAN-AMERICAN > 60; GLUCOSE,RANDOM 107 mg/dL (65-105); SODIUM 137 mmol/l (132-148)
[2016-06-16 05:11] LABS: CARBON DIOXIDE 44 mmol/L (22-30)
[2016-06-16] MEDS ORDERED: Potassium Chloride 20 mEq ER Tab PO ONE (05:21)
[2016-06-16] MEDS: Levothyroxine 100 MCG TAB PO SCH (05:36)
[2016-06-16] MEDS: Albuterol-Ipratrop 3 mg / 0.5 (3 ml) UD INH SCH ×4 (07:48→20:18)
[2016-06-16] MEDS: Acetylcysteine 10% 4 ML IH SCH ×3 (07:48→20:18)
[2016-06-16] MEDS: Hydrocortisone- 100 MG in Sodium Chloride 0.9% 100 ML IV SCH ×2 (09:32→21:05)
[2016-06-16] MEDS: Enoxaparin 40 mg Syringe SC SCH (09:33)
[2016-06-16] MEDS: Lactobacillus Acidophilus 500 MU Cap PO SCH ×2 (09:40→17:59)
[2016-06-16] MEDS: Hydrocerin CREAM TOP SCH ×2 (09:42→18:00)
[2016-06-16] MEDS: Pantoprazole 40 mg EC Tab PO SCH (09:44)
[2016-06-16] MEDS: Multivitamin With Minerals Tab PO SCH (09:44)
[2016-06-16] MEDS: THEOPHYLLINE 400 MG T24(UNIPHYL) PO SCH (09:45)
--- NOTE | 2016-06-16 10:02 | CP.PCM.PN ---
Subjective - Date & Time of Evaluation Date of Evaluation: 06/16/16 Time of Evaluation: 10:02 - Subjective Subjective: patient seen, examined bedside. states feels improved from yesterday, however continues to have increased work of breathing as well as difficulty completing sentences in one breath. continues to have decreased breath sounds. mild tachy, improved from yesterday. pt requested kimble vss nad Objective - Vital Signs/Intake and Output Vital Signs (last 24 hours): Temp Pulse Resp BP Pulse Ox 98.1 F 93 H 18 103/59 L 98 06/16/16 08:04 06/16/16 08:04 06/16/16 08:49 06/16/16 09:47 06/16/16 08:04 - Medications Medications: Current Medications Acetaminophen (Tylenol 325mg Tab) 650 mg PO Q6 PRN PRN Reason: Pain, moderate (4-7) Last Admin: 06/14/16 12:10 Dose: 650 mg Acetylcysteine (Mucomyst 10% 4ml) 2 ml IH RBID [facility] Last Admin: 06/16/16 07:48 Dose: 2 ml Albuterol Sulfate (Albuterol 0.083% Inhal Aby (2.5 Mg/3 Ml) Ud) 2.5 mg INH RQ4 PRN PRN Reason: Shortness of Breath Last Admin: 06/16/16 00:29 Dose: 2.5 mg Albuterol/Ipratropium (Duoneb 3 Mg/0.5 Mg (3 Ml) Ud) 3 ml INH RQID [facility] Last Admin: 06/16/16 07:48 Dose: 3 ml Anastrozole (Arimidex 1 Mg Tab) 1 mg PO DAILY [facility] Last Admin: 06/16/16 09:51 Dose: 1 mg Aspirin (Ecotrin) 81 mg PO DAILY [facility] Last Admin: 06/16/16 09:42 Dose: 81 mg Baclofen (Lioresal) 10 mg PO HS [facility] Last Admin: 06/15/16 21:54 Dose: 10 mg Enoxaparin Sodium (Lovenox) 40 mg SC DAILY [facility] PRN Reason: Protocol Last Admin: 06/16/16 09:33 Dose: 40 mg Furosemide (Lasix) 40 mg IVP DAILY [facility] Last Admin: 06/16/16 09:47 Dose: 40 mg Gabapentin (Neurontin) 600 mg PO TID [facility] Last Admin: 06/16/16 09:43 Dose: 600 mg Guaifenesin/Dextromethorphan (Mucinex-Dm 600-30 Mg) 1 tab PO BID [facility] Last Admin: 06/15/16 16:07 Dose: 1 tab Vancomycin HCl 1 gm/ Sodium (Chloride) 250 mls @ 166.667 mls/hr IVPB Q12 [facility] Last Admin: 06/15/16 20:46 Dose: 166.667 mls/hr Piperacillin Sod/Tazobactam (Sod 3.375 gm/ Sodium Chloride) 100 mls @ 100 mls/ hr IVPB Q12 [facility] Last Admin: 06/15/16 20:49 Dose: 100 mls/hr Iron Sucrose 100 mg/ Sodium (Chloride) 105 mls @ 105 mls/hr IVPB DAILY [facility] Last Admin: 06/15/16 10:00 Dose: 105 mls/hr Hydrocortisone Sodium Succinate 100 mg/ Sodium Chloride 100 mls @ 100 mls/hr IV Q12 [facility] Last Admin: 06/16/16 09:32 Dose: 100 mls/hr Lactobacillus Acidophilus (Bacid Acidophilus) 1 cap PO BID [facility] Last Admin: 06/16/16 09:40 Dose: 1 cap Levothyroxine Sodium (Synthroid) 100 mcg PO 0630 [facility] Last Admin: 06/16/16 05:36 Dose: 100 mcg Multi-Ingredient Cream (Hydrocerin Cream) 1 applic TOP BID [facility] Last Admin: 06/16/16 09:42 Dose: 1 applic Multivitamins/Minerals (Therapeutic-M Tab) 1 tab PO DAILY [facility] Last Admin: 06/16/16 09:44 Dose: 1 tab Pantoprazole Sodium (Protonix Ec Tab) 40 mg PO DAILY [facility] Last Admin: 06/16/16 09:44 Dose: 40 mg Senna/Docusate Sodium (Senokot S 50 Mg-8.6 Mg) 1 tab PO HS [facility] Last Admin: 06/11/16 21:19 Dose: 1 tab Theophylline (Uniphyl) 400 mg PO DAILY [facility] Last Admin: 06/16/16 09:45 Dose: 400 mg Verapamil HCl (Calan Tab) 40 mg PO TID [facility] Last Admin: 06/16/16 09:40 Dose: 40 mg Zolpidem Tartrate (Ambien) 5 mg PO HS PRN PRN Reason: Sleep Last Admin: 06/15/16 22:59 Dose: 5 mg - Labs Labs: 06/15/16 04:00 06/16/16 04:10 PT 11.0 SECONDS (9.6-11.2) 06/09/16 04:10 INR 1.06 (0.92-1.08) 06/09/16 04:10 APTT 27.5 SECONDS (23.3-32.5) 06/03/16 22:33 - Constitutional Appears: Non-toxic, Chronically Ill, Other (some respiratory discomfort, however improved from yesterday) - Head Exam Head Exam: ATRAUMATIC, NORMOCEPHALIC - Eye Exam Eye Exam: EOMI, Normal appearance, PERRL Pupil Exam: NORMAL ACCOMODATION - ENT Exam ENT Exam: Mucous Membranes Moist, Normal Oropharynx - Neck Exam Neck Exam: Full ROM, Normal Inspection - Respiratory Exam Respiratory Exam: Decreased Breath Sounds, Clear to Ausculation Bilateral. absent: Wheezes - Cardiovascular Exam Cardiovascular Exam: RRR, +S1, +S2. absent: Gallop, Rubs - GI/Abdominal Exam GI & Abdominal Exam: Soft, Normal Bowel Sounds. absent: Tenderness, Mass, Organomegaly - Extremities Exam Extremities Exam: Normal Capillary Refill. absent: Calf Tenderness - Back Exam Back Exam: absent: CVA tenderness (L), CVA tenderness (R) - Neurological Exam Neurological Exam: Alert, Awake - Psychiatric Exam Psychiatric exam: Normal Affect, Normal Mood - Skin Skin Exam: Dry, Normal Color Assessment and Plan - Assessment and Plan (Free Text) Plan: 66 y/o female PMH COPD, bilateral breast CA s/p chemo and radiation 8 years ago with bone mets to shoulder (s/p humerus resection), HTN, hyperthyroidism presented with 2 week history of worsening bilateral lower extremity swelling and weakness, unable to get herself up to her walker. Patient has mild dyspnea at baseline. She also noted to have right facial swelling for almost 2 weeks being treated with Po antibiotics as out patient. Patient admitted for generalized weakness , Hyponatremia and facial abscess. She was started on IV Clinda and Zosyn for facial abscess and lasix Iv with fluid restriction for LE edema . At present she is afebrile, Maxillofacial Ct showed possible abscess accumulation and patient had purulent discharge from an opening in oral mucosa. Evaluated by maxillofacial surgeon and underwent Incision and drainage of abscess.At present with no positive cultures. Bone scan showed possible osteomyelytis so she was started on Vancomycin and Zosyn IV for total 4 -6 weeks as per ID recommendations continues to have mild dyspnea at rest, however patient states she is mildly improved from yesterday. Increased work of breathing with minimal accessory muscle use today. 1. Dyspnea Most likely secondary to COPD excerbation with acute bronchitis and CHF exacerbation with increased work of breathing, unable to complete sentences in full breath. decreased air entry bilaterally CT chest w/o contrast showed small to moderate bilateral pleural effusion Discussed with IR for possible thoracenthesis to help with work of breathing .Not enough fluid seen on US for thoracenthesis Continue lasix if allowed by BP Continue O2 via NC and Duonebs Increase hydrocortizone to 100 mg IV BID Continue Theophylline [address] on high Flow O2 30 l/min on FIO2 28 % Continue Chest PT and Acapella therapy 2 Facial abscess s/p drainage of abscess Patient is afebrile, improving Maxillofacial Ct showed :Large enhancing wall collection seen around the mid and upper right mandibular ramus and mandibular neck extending anteriorly and seen medial and lateral to the right zygomatic arch as described above. This collection contains foci of air. The density and the appearance of this collection suggestive of abscess formation. The collection is seen anterior to the right parotid gland and extending medially to the posterior right oral cavity. [id number] right maxillary sinus mucosal thickening and small air-fluid level. Partial opacification of both mastoids suggestive of mastoiditis. ID on consult: Dr Obrien. Was started on clindamycin and Zosyn IV OMFS Dr. Ambrose consulted and patient underwent Incision and drainage on 06/09 All cultures with no growth so far pathology report showed inflammatory cells, no malignancy Nuclear Bone Scan could not rule out osteomyelitis Tunneled central line placed for watermaster IV antibiotics Discussed with Dr. Obrien. Discontinued clindamycin and started vancomycibn 1 g IV BID and Zosyn 3.375 mg IV Q12 . Will continue same dose of Vanco and Zosyn for 4-6 weeks 3. Bilateral LE edema likely CHF exacerbation with diastolic dysfx, Echo showed EF 40-45 % and dilated RV Still with 1 +edema today and more chest congestion continue fluid restriction and lasix PRN CT chest showed bilateral small to moderate pleural effusion Continue lasix PRN if tolerated PT eval appreciated . patient will benefit from TAMARA (planning discharge to [facility] ) Podiatry consult for dorsum pain and wound consult for LE abrasions appreciated 4.Hypokalemia Most likely diuretic induced replete as necessary 5.Hyponatremia most likely secondary to solute depletion and infection Continue fluid restriction 6.Acute bronchitis and COPD cont Duonebs, theophylline , spiriva, Advair Increased Hydrocortisone to 100mg IV BID Dr. Benz consult appreciated and following Increased Theophilline to 400 mg po daily 7.Hx breast ca, bilateral stable, s/p bilateral mastectomy continue arimidex 8.Hypertension on the low side Held BP meds if SBp < 100 d/c Metoprolol Decreased Verapamil to 40 mg TID 9. Hypothyroidism patient has history of hyperthyroidism and was on Methimazole. Now patient has developed hypothyroidism TSH 32 Endo consulted - Dr Vu following pt D/c methimazole and started Synthroid increased dose to 100 mg po QD 10. Anemia, chronic dis monitor anemia work up showed depleted iron stores Started Venofer IV 200 11.DVT ppx lovenox
--- NOTE | 2016-06-16 11:36 | CP.PCM.PN ---
<Heladio Louie T - Last Filed: 06/16/16 11:30> Subjective - Date & Time of Evaluation Date of Evaluation: 06/16/16 Time of Evaluation: 10:04 - Subjective Subjective: Pulmonology Progress Note: Pt is seen and examined at bedside. Right sided facial swelling remains improved from original visit, but pt is less comfortable and continues to exhibit signs of mild dyspnea compared to previous days. She occasionally needs additional breath to finish sentence. She is still having difficulty expectorating sputum despite her congested cough. AAOx3 EOMI, PERRL Neck supple, Trachea midline No dullness on chest percussion Diminished lung sounds, air exchange heard bilaterally Cough is weaker than previous days Occasional faint expiratory wheezes heard in the lower lobes. No bronchial breathing or egophony. RRR, S1 S2 appreciated Continue IV Vanco & Zosyn Continue high flow O2 via NC Objective - Vital Signs/Intake and Output Vital Signs (last 24 hours): Temp Pulse Resp BP Pulse Ox 98.1 F 93 H 18 103/59 L 98 06/16/16 08:04 06/16/16 08:04 06/16/16 08:49 06/16/16 09:47 06/16/16 08:04 - Medications Medications: Current Medications Acetaminophen (Tylenol 325mg Tab) 650 mg PO Q6 PRN PRN Reason: Pain, moderate (4-7) Last Admin: 06/14/16 12:10 Dose: 650 mg Acetylcysteine (Mucomyst 10% 4ml) 2 ml IH RBID [facility] Last Admin: 06/16/16 07:48 Dose: 2 ml Albuterol Sulfate (Albuterol 0.083% Inhal Aby (2.5 Mg/3 Ml) Ud) 2.5 mg INH RQ4 PRN PRN Reason: Shortness of Breath Last Admin: 06/16/16 00:29 Dose: 2.5 mg Albuterol/Ipratropium (Duoneb 3 Mg/0.5 Mg (3 Ml) Ud) 3 ml INH RQID [facility] Last Admin: 06/16/16 10:59 Dose: 3 ml Anastrozole (Arimidex 1 Mg Tab) 1 mg PO DAILY [facility] Last Admin: 06/16/16 09:51 Dose: 1 mg Aspirin (Ecotrin) 81 mg PO DAILY [facility] Last Admin: 06/16/16 09:42 Dose: 81 mg Baclofen (Lioresal) 10 mg PO HS [facility] Last Admin: 06/15/16 21:54 Dose: 10 mg Enoxaparin Sodium (Lovenox) 40 mg SC DAILY [facility] PRN Reason: Protocol Last Admin: 06/16/16 09:33 Dose: 40 mg Furosemide (Lasix) 40 mg IVP DAILY [facility] Last Admin: 06/16/16 09:47 Dose: 40 mg Gabapentin (Neurontin) 600 mg PO TID [facility] Last Admin: 06/16/16 09:43 Dose: 600 mg Guaifenesin/Dextromethorphan (Mucinex-Dm 600-30 Mg) 1 tab PO BID [facility] Last Admin: 06/15/16 16:07 Dose: 1 tab Vancomycin HCl 1 gm/ Sodium (Chloride) 250 mls @ 166.667 mls/hr IVPB Q12 [facility] Last Admin: 06/15/16 20:46 Dose: 166.667 mls/hr Piperacillin Sod/Tazobactam (Sod 3.375 gm/ Sodium Chloride) 100 mls @ 100 mls/ hr IVPB Q12 [facility] Last Admin: 06/15/16 20:49 Dose: 100 mls/hr Iron Sucrose 100 mg/ Sodium (Chloride) 105 mls @ 105 mls/hr IVPB DAILY [facility] Last Admin: 06/15/16 10:00 Dose: 105 mls/hr Hydrocortisone Sodium Succinate 100 mg/ Sodium Chloride 100 mls @ 100 mls/hr IV Q12 [facility] Last Admin: 06/16/16 09:32 Dose: 100 mls/hr Lactobacillus Acidophilus (Bacid Acidophilus) 1 cap PO BID [facility] Last Admin: 06/16/16 09:40 Dose: 1 cap Levothyroxine Sodium (Synthroid) 100 mcg PO 0630 [facility] Last Admin: 06/16/16 05:36 Dose: 100 mcg Multi-Ingredient Cream (Hydrocerin Cream) 1 applic TOP BID [facility] Last Admin: 06/16/16 09:42 Dose: 1 applic Multivitamins/Minerals (Therapeutic-M Tab) 1 tab PO DAILY [facility] Last Admin: 06/16/16 09:44 Dose: 1 tab Pantoprazole Sodium (Protonix Ec Tab) 40 mg PO DAILY [facility] Last Admin: 06/16/16 09:44 Dose: 40 mg Senna/Docusate Sodium (Senokot S 50 Mg-8.6 Mg) 1 tab PO HS [facility] Last Admin: 06/11/16 21:19 Dose: 1 tab Theophylline (Uniphyl) 400 mg PO DAILY [facility] Last Admin: 06/16/16 09:45 Dose: 400 mg Verapamil HCl (Calan Tab) 40 mg PO TID [facility] Last Admin: 06/16/16 09:40 Dose: 40 mg Zolpidem Tartrate (Ambien) 5 mg PO HS PRN PRN Reason: Sleep Last Admin: 06/15/16 22:59 Dose: 5 mg - Labs Labs: 06/15/16 04:00 06/16/16 04:10 PT 11.0 SECONDS (9.6-11.2) 06/09/16 04:10 INR 1.06 (0.92-1.08) 06/09/16 04:10 APTT 27.5 SECONDS (23.3-32.5) 06/03/16 22:33 Assessment and Plan (1) Acute bronchitis with chronic obstructive pulmonary disease (COPD) Status: Acute (2) Hyperthyroidism Status: Chronic (3) Abscess Status: Acute <Bala Benz - Last Filed: 06/16/16 15:26> Subjective - Date & Time of Evaluation Date of Evaluation: 06/16/16 Time of Evaluation: 15:25 - Subjective Subjective: seen on rounds with the resident. Patient examined and case discussed. Agree with plan as outlined. Will add cough assist device if obtainable. Objective - Vital Signs/Intake and Output Vital Signs (last 24 hours): Temp Pulse Resp BP Pulse Ox 98.3 F 97 H 18 103/59 L 97 06/16/16 12:02 06/16/16 12:02 06/16/16 12:02 06/16/16 12:02 06/16/16 12:02 - Medications Medications: Current Medications Acetaminophen (Tylenol 325mg Tab) 650 mg PO Q6 PRN PRN Reason: Pain, moderate (4-7) Last Admin: 06/14/16 12:10 Dose: 650 mg Acetylcysteine (Mucomyst 10% 4ml) 2 ml IH RQID [facility] Albuterol Sulfate (Albuterol 0.083% Inhal Aby (2.5 Mg/3 Ml) Ud) 2.5 mg INH RQ4 PRN PRN Reason: Shortness of Breath Last Admin: 06/16/16 00:29 Dose: 2.5 mg Albuterol/Ipratropium (Duoneb 3 Mg/0.5 Mg (3 Ml) Ud) 3 ml INH RQID [facility] Last Admin: 06/16/16 10:59 Dose: 3 ml Anastrozole (Arimidex 1 Mg Tab) 1 mg PO DAILY [facility] Last Admin: 06/16/16 09:51 Dose: 1 mg Aspirin (Ecotrin) 81 mg PO DAILY [facility] Last Admin: 06/16/16 09:42 Dose: 81 mg Baclofen (Lioresal) 10 mg PO HS [facility] Last Admin: 06/15/16 21:54 Dose: 10 mg Enoxaparin Sodium (Lovenox) 40 mg SC DAILY [facility] PRN Reason: Protocol Last Admin: 06/16/16 09:33 Dose: 40 mg Furosemide (Lasix) 40 mg IVP DAILY [facility] Last Admin: 06/16/16 09:47 Dose: 40 mg Gabapentin (Neurontin) 600 mg PO TID [facility] Last Admin: 06/16/16 13:36 Dose: 600 mg Piperacillin Sod/Tazobactam (Sod 3.375 gm/ Sodium Chloride) 100 mls @ 100 mls/ hr IVPB Q12 [facility] Last Admin: 06/16/16 13:31 Dose: 100 mls/hr Iron Sucrose 100 mg/ Sodium (Chloride) 105 mls @ 105 mls/hr IVPB DAILY [facility] Last Admin: 06/16/16 13:30 Dose: 105 mls/hr Hydrocortisone Sodium Succinate 100 mg/ Sodium Chloride 100 mls @ 100 mls/hr IV Q12 [facility] Last Admin: 06/16/16 09:32 Dose: 100 mls/hr Vancomycin HCl 500 mg/ Sodium (Chloride) 100 mls @ 100 mls/hr IVPB Q12H [facility] Lactobacillus Acidophilus (Bacid Acidophilus) 1 cap PO BID [facility] Last Admin: 06/16/16 09:40 Dose: 1 cap Levothyroxine Sodium (Synthroid) 100 mcg PO 0630 [facility] Last Admin: 06/16/16 05:36 Dose: 100 mcg Multi-Ingredient Cream (Hydrocerin Cream) 1 applic TOP BID [facility] Last Admin: 06/16/16 09:42 Dose: 1 applic Multivitamins/Minerals (Therapeutic-M Tab) 1 tab PO DAILY [facility] Last Admin: 06/16/16 09:44 Dose: 1 tab Pantoprazole Sodium (Protonix Ec Tab) 40 mg PO DAILY [facility] Last Admin: 06/16/16 09:44 Dose: 40 mg Senna/Docusate Sodium (Senokot S 50 Mg-8.6 Mg) 1 tab PO HS [facility] Last Admin: 06/11/16 21:19 Dose: 1 tab Theophylline (Uniphyl) 400 mg PO DAILY [facility] Last Admin: 06/16/16 09:45 Dose: 400 mg Verapamil HCl (Calan Tab) 40 mg PO TID [facility] Last Admin: 06/16/16 13:35 Dose: 40 mg Zolpidem Tartrate (Ambien) 5 mg PO HS PRN PRN Reason: Sleep Last Admin: 06/15/16 22:59 Dose: 5 mg - Labs Labs: 06/15/16 04:00 06/16/16 04:10 PT 11.0 SECONDS (9.6-11.2) 06/09/16 04:10 INR 1.06 (0.92-1.08) 06/09/16 04:10 APTT 27.5 SECONDS (23.3-32.5) 06/03/16 22:33 Assessment and Plan (1) Acute bronchitis with chronic obstructive pulmonary disease (COPD) Status: Acute (2) Hyperthyroidism Status: Chronic (3) Abscess Status: Acute
--- NOTE | 2016-06-16 12:05 | PN ---
DATE: 06/16/2016 ROOM: 404. SUBJECTIVE: This is a 66-year-old female with recent acute exacerbation of COPD and currently on IV steroid therapy, with also supervening congestive heart failure and is now being followed closely for metabolic management. She also presented with hypothyroidism and started on levothyroxine replaceme nt therapy as given. Her latest chemistries include a BUN of 11, sodium 137, potassium 3.9, chloride 96, CO2 of 40, glucose 78 and creatinine 0.5. Her latest thyroid study showed a T4 of 3.71 with a T SH of 41.10. So at this time, we will continue the levothyroxine given as 100 mcg daily . We w ill also . We will follow and advise accordingly. Polly Vu MD cc: [id number] TT: 06/16/2016 12:04:23 Confirmation # [id number] Dictation # [id number] [email or web address]
[2016-06-16] MEDS: Piperacillin/Tazobact 3.375 GM in Sodium Chloride 0.9% 100 ML IVPB SCH ×2 (13:31→21:04)
[2016-06-16] MEDS: guaiFENesin-DM 600-30 mg ER Tab PO SCH (13:36)
[2016-06-17] MEDS: Albuterol 0.083% Inhal Sol (2.5 mg/3 mL) UD INH PRN ×2 (03:20→13:46)
[2016-06-17 05:31] LABS: MEAN CELL VOLUME 69.6 fl (81.0-99.0); MEAN CORPUSCULAR HEMOGLOBIN 20.5 pg (27.0-31.0); MEAN CORPUSCULAR HGB CONC 29.4 g/dL (33.0-37.0); RED CELL DISTRIBUTION WIDTH 24.1 % (11.5-14.5); WHITE BLOOD COUNT 10.5 K/uL (4.8-10.8)
[2016-06-17 05:46] LABS: BLOOD UREA NITROGEN 11 mg/dl (7-17); CALCIUM 7.9 mg/dL (8.4-10.2); CHLORIDE 96 mmol/L (98-107); GFR AFRICAN-AMERICAN > 60; GLUCOSE,RANDOM 95 mg/dL (65-105); POTASSIUM 2.7 MMOL/L (3.6-5.0); SODIUM 139 mmol/l (132-148)
[2016-06-17 06:01] LABS: CARBON DIOXIDE 42 mmol/L (22-30)
[2016-06-17] MEDS: Levothyroxine 100 MCG TAB PO SCH (06:06)
[2016-06-17] MEDS: Acetylcysteine 10% 4 ML IH SCH ×4 (07:51→19:48)
[2016-06-17] MEDS: Albuterol-Ipratrop 3 mg / 0.5 (3 ml) UD INH SCH ×4 (07:51→19:48)
[2016-06-17] MEDS ORDERED: Potassium Chloride 40 mEq/30 ml LIQ UD PO ONE (08:11)
[2016-06-17] MEDS ORDERED: Potassium Chloride 20 mEq/15 ml LIQ UD PO ONE (08:30)
[2016-06-17] MEDS: Piperacillin/Tazobact 3.375 GM in Sodium Chloride 0.9% 100 ML IVPB SCH ×2 (09:00→20:32)
[2016-06-17] MEDS: Hydrocortisone- 100 MG in Sodium Chloride 0.9% 100 ML IV SCH ×2 (09:00→20:31)
[2016-06-17] MEDS: Pantoprazole 40 mg EC Tab PO SCH (09:30)
[2016-06-17] MEDS: Multivitamin With Minerals Tab PO SCH (09:30)
[2016-06-17] MEDS: THEOPHYLLINE 400 MG T24(UNIPHYL) PO SCH (09:30)
[2016-06-17] MEDS: Hydrocerin CREAM TOP SCH ×2 (09:30→17:49)
[2016-06-17] MEDS: Lactobacillus Acidophilus 500 MU Cap PO SCH ×2 (09:30→17:46)
[2016-06-17] MEDS: Enoxaparin 40 mg Syringe SC SCH (10:12)
--- NOTE | 2016-06-17 10:17 | CP.PCM.PN ---
Subjective - Date & Time of Evaluation Date of Evaluation: 06/17/16 Time of Evaluation: 09:30 - Subjective Subjective: No fever mild dyspnea- on High Flow Oxygen voice hoarse no sorethroat, no oral thrush no CP no abd pain Objective - Vital Signs/Intake and Output Vital Signs (last 24 hours): Temp Pulse Resp BP Pulse Ox 97.6 F 102 H 18 125/69 95 06/17/16 07:52 06/17/16 10:09 06/17/16 07:52 06/17/16 10:10 06/17/16 07:52 Intake and Output: 06/17/16 06/17/16 06:59 18:59 Intake Total 650 Output Total 600 Balance 50 - Medications Medications: Current Medications Acetaminophen (Tylenol 325mg Tab) 650 mg PO Q6 PRN PRN Reason: Pain, moderate (4-7) Last Admin: 06/17/16 03:55 Dose: 650 mg Acetylcysteine (Mucomyst 10% 4ml) 2 ml IH RQID [facility] Last Admin: 06/17/16 07:51 Dose: 2 ml Albuterol Sulfate (Albuterol 0.083% Inhal Aby (2.5 Mg/3 Ml) Ud) 2.5 mg INH RQ4 PRN PRN Reason: Shortness of Breath Last Admin: 06/17/16 03:20 Dose: 2.5 mg Albuterol/Ipratropium (Duoneb 3 Mg/0.5 Mg (3 Ml) Ud) 3 ml INH RQID [facility] Last Admin: 06/17/16 07:51 Dose: 3 ml Anastrozole (Arimidex 1 Mg Tab) 1 mg PO DAILY [facility] Last Admin: 06/17/16 09:30 Dose: 1 mg Aspirin (Ecotrin) 81 mg PO DAILY [facility] Last Admin: 06/17/16 09:30 Dose: 81 mg Baclofen (Lioresal) 10 mg PO HS [facility] Last Admin: 06/16/16 21:21 Dose: 10 mg Enoxaparin Sodium (Lovenox) 40 mg SC DAILY [facility] PRN Reason: Protocol Last Admin: 06/17/16 10:12 Dose: 40 mg Furosemide (Lasix) 40 mg IVP DAILY [facility] Last Admin: 06/17/16 10:10 Dose: 40 mg Gabapentin (Neurontin) 600 mg PO TID [facility] Last Admin: 06/17/16 09:30 Dose: 600 mg Piperacillin Sod/Tazobactam (Sod 3.375 gm/ Sodium Chloride) 100 mls @ 100 mls/ hr IVPB Q12 [facility] Last Admin: 06/16/16 21:04 Dose: 100 mls/hr Iron Sucrose 100 mg/ Sodium (Chloride) 105 mls @ 105 mls/hr IVPB DAILY [facility] Last Admin: 06/16/16 13:30 Dose: 105 mls/hr Hydrocortisone Sodium Succinate 100 mg/ Sodium Chloride 100 mls @ 100 mls/hr IV Q12 [facility] Last Admin: 06/16/16 21:05 Dose: 100 mls/hr Vancomycin HCl 500 mg/ Sodium (Chloride) 100 mls @ 100 mls/hr IVPB Q12H [facility] Last Admin: 06/16/16 21:02 Dose: 100 mls/hr Potassium Chloride (Potassium Cl 10meq/50ml Sterile Water) 50 mls @ 50 mls/hr IVPB Q1 [facility] Stop: 06/17/16 12:59 Lactobacillus Acidophilus (Bacid Acidophilus) 1 cap PO BID [facility] Last Admin: 06/17/16 09:30 Dose: 1 cap Levothyroxine Sodium (Synthroid) 100 mcg PO 0630 [facility] Last Admin: 06/17/16 06:06 Dose: 100 mcg Multi-Ingredient Cream (Hydrocerin Cream) 1 applic TOP BID [facility] Last Admin: 06/16/16 18:00 Dose: 1 applic Multivitamins/Minerals (Therapeutic-M Tab) 1 tab PO DAILY [facility] Last Admin: 06/17/16 09:30 Dose: 1 tab Pantoprazole Sodium (Protonix Ec Tab) 40 mg PO DAILY [facility] Last Admin: 06/17/16 09:30 Dose: 40 mg Senna/Docusate Sodium (Senokot S 50 Mg-8.6 Mg) 1 tab PO HS [facility] Last Admin: 06/11/16 21:19 Dose: 1 tab Theophylline (Uniphyl) 400 mg PO DAILY [facility] Last Admin: 06/17/16 09:30 Dose: 400 mg Verapamil HCl (Calan Tab) 40 mg PO TID [facility] Last Admin: 06/17/16 10:09 Dose: 40 mg Zolpidem Tartrate (Ambien) 5 mg PO HS PRN PRN Reason: Sleep Last Admin: 06/16/16 21:21 Dose: 5 mg - Labs Labs: 06/17/16 04:30 06/17/16 04:30 PT 11.0 SECONDS (9.6-11.2) 06/09/16 04:10 INR 1.06 (0.92-1.08) 06/09/16 04:10 APTT 27.5 SECONDS (23.3-32.5) 06/03/16 22:33 - Constitutional Appears: Chronically Ill - Head Exam Head Exam: NORMAL INSPECTION, NORMOCEPHALIC - Eye Exam Eye Exam: EOMI, Normal appearance Pupil Exam: NORMAL ACCOMODATION - ENT Exam ENT Exam: Mucous Membranes Dry, Normal External Ear Exam Additional comments: right facial swelling, markedly decreased , still with some tenderness - Neck Exam Neck Exam: Full ROM. absent: Meningismus - Respiratory Exam Respiratory Exam: Rales, Rhonchi. absent: Wheezes on High Flow Oxygen - Cardiovascular Exam Cardiovascular Exam: REGULAR RHYTHM, +S1, +S2 - GI/Abdominal Exam GI & Abdominal Exam: Soft, Normal Bowel Sounds. absent: Tenderness - Extremities Exam Extremities Exam: Normal Capillary Refill, Pedal Edema Additional comments: abrasions LE - Back Exam Back Exam: absent: CVA tenderness (L), CVA tenderness (R) - Neurological Exam Neurological Exam: Alert, Awake, CN II-XII Intact, Oriented x3 - Psychiatric Exam Psychiatric exam: Normal Affect, Normal Mood - Skin Skin Exam: Dry, Normal Color, Warm Assessment and Plan (1) Acute and chronic respiratory failure with hypercapnia Status: Acute (2) Osteomyelitis of mandible Status: Acute (3) Hypothyroidism Status: Acute (4) Acute exacerbation of chronic obstructive pulmonary disease (COPD) Status: Acute (5) HTN (hypertension) Status: Chronic (6) Hx of breast cancer Status: Chronic (7) Acute exacerbation of CHF (congestive heart failure) Status: Acute (8) Hypokalemia Status: Acute (9) DVT prophylaxis Status: Acute - Assessment and Plan (Free Text) Assessment: 66 y/o female PMH COPD, bilateral breast CA s/p chemo and radiation 8 years ago with bone mets to shoulder (s/p humerus resection), HTN, hyperthyroidism presented with 2 week history of worsening bilateral lower extremity swelling and weakness, unable to get herself up to her walker. Patient has mild dyspnea at baseline. She also noted to have right facial swelling for almost 2 weeks and was taking PO antibiotics prescribed by her dentist. Patient was admitted for generalized weakness , Hyponatremia and facial abscess. She was started on IV Clinda and Zosyn for facial abscess and Lasix IV with fluid restriction for LE edema . At present she is afebrile, Maxillofacial Ct showed possible abscess accumulation and patient had purulent discharge from an opening in oral mucosa. Evaluated by maxillofacial surgeon and underwent Incision and drainage of abscess. At present with no positive cultures. Bone scan showed possible osteomyelitis so she was started on Vancomycin and Zosyn IV (4-6 weeks as per ID recommendations). Has some dyspnea even at rest - started on High Flow Oxygen. 1. Acute on Chronic Respiratory Insufficiency with hypercapnea Most likely secondary to COPD excerbation with acute bronchitis and CHF exacerbation CT chest w/o contrast showed small to moderate bilateral pleural effusion IR consulted for possible thoracentesis however there is not enough fluid seen on US Continue diuresis with Lasix Continue Duonebs, Hydrocortisone and Theophylline Cont High Flow O2 30 l/min on FIO2 28 % Continue Chest PT and Acapella therapy 2. Facial abscess with mandibular Osteomyelitis s/p drainage of abscess Patient is afebrile, improving Maxillofacial Ct showed :Large enhancing wall collection seen around the mid and upper right mandibular ramus and mandibular neck extending anteriorly and seen medial and lateral to the right zygomatic arch. This collection contains foci of air. The density and the appearance of this collection suggestive of abscess formation. The collection is seen anterior to the right parotid gland and extending medially to the posterior right oral cavity. [id number] right maxillary sinus mucosal thickening and small air-fluid level. Partial opacification of both mastoids suggestive of mastoiditis. ID on consult: Dr Obrien. Rec IV Vanco and Zosyn x [address] 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 Bilateral LE edema likely CHF exacerbation with diastolic dysfxn Echo showed EF 40-45 % and dilated RV continue fluid restriction and lasix PRN CT chest showed bilateral small to moderate pleural effusion Podiatry consulted for dorsum pain and wound consult for LE abrasions 4.Hypokalemia Most likely diuretic induced replete as necessary 5.Hyponatremia most likely secondary to solute depletion and infection Continue fluid restriction 6.Hx breast ca, bilateral stable, s/p bilateral mastectomy continue arimidex 7.Hypertension on the low side Held BP meds if SBp < 100 d/c Metoprolol Decreased Verapamil to 40 mg TID 8. Hypothyroidism patient has history of hyperthyroidism and was on Methimazole. Now patient has developed hypothyroidism TSH 41 Endo consulted - Dr Vu following pt D/c methimazole and started Synthroid - increased dose to 100 mg po QD 9. Anemia, chronic dis monitor anemia work up showed depleted iron stores Venofer IV 200 10.DVT ppx lovenox
[2016-06-17] MEDS: Potassium CL 10 MEQ/50 ML 50 ML IVPB SCH ×4 (10:25→18:58)
[2016-06-17 12:03] LABS: FOLATE 6.8 ng/mL
--- NOTE | 2016-06-17 14:47 | CT ---
Distended thoracentesis History: Pleural effusion. Findings: No significant pleural effusion identified. Thoracentesis not performed. Impression: No significant pleural effusion identified. Thoracentesis not performed.
--- NOTE | 2016-06-17 22:18 | PN ---
DATE: 06/17/2016 ROOM: 404 SUBJECTIVE: This is a 66-year-old female with known history of hyperthyroidism, presenting here with hypothyroidism and started on levothyroxine replacement therapy, and is now being followed closely f or metabolic management. Her latest thyroid study showed a T4 of 3.71 with a TSH of 41.10. She is a lso being managed here for acute exacerbation of chronic obstructive pulmonary disease with IV steroi ds and also cardiac management for congestive heart failure. So; at this time, we will continue the same modified levothyroxine dose of 100 mcg p.o. once daily in the morning . We will titrate in crementally as indicated to optimize metabolic control. We will follow and advise accordingly. Polly Vu MD cc: [id number] TT: 06/17/2016 22:17:10 Confirmation # [id number] Dictation # [id number]
[2016-06-18] MEDS: Albuterol 0.083% Inhal Sol (2.5 mg/3 mL) UD INH PRN ×3 (01:03→22:00)
[2016-06-18 05:20] LABS: HEMATOCRIT 27.4 % (34.0-47.0); MEAN CELL VOLUME 70.8 fl (81.0-99.0); MEAN CORPUSCULAR HEMOGLOBIN 20.8 pg (27.0-31.0); MEAN CORPUSCULAR HGB CONC 29.4 g/dL (33.0-37.0); RED CELL DISTRIBUTION WIDTH 24.4 % (11.5-14.5); WHITE BLOOD COUNT 10.6 K/uL (4.8-10.8)
[2016-06-18 05:37] LABS: BLOOD UREA NITROGEN 12 mg/dl (7-17); CARBON DIOXIDE 39 mmol/L (22-30); CHLORIDE 95 mmol/L (98-107); GFR AFRICAN-AMERICAN > 60; GLUCOSE,RANDOM 122 mg/dL (65-105); MAGNESIUM 1.9 MG/DL (1.6-2.3); POTASSIUM 2.7 MMOL/L (3.6-5.0); SODIUM 139 mmol/l (132-148)
[2016-06-18] MEDS: Levothyroxine 100 MCG TAB PO SCH (06:36)
[2016-06-18] MEDS: Albuterol-Ipratrop 3 mg / 0.5 (3 ml) UD INH SCH ×4 (07:54→18:02)
[2016-06-18] MEDS: Acetylcysteine 10% 4 ML IH SCH ×4 (07:54→21:59)
[2016-06-18] MEDS ORDERED: Potassium Chloride 20 mEq/15 ml LIQ UD PO STA (08:08)
[2016-06-18] MEDS ORDERED: Magnesium Oxide 400 mg Tab UD PO STA (08:09)
[2016-06-18] MEDS: Potassium CL 10 MEQ/50 ML 50 ML IVPB SCH ×4 (08:59→15:29)
[2016-06-18] MEDS: Multivitamin With Minerals Tab PO SCH (09:01)
[2016-06-18] MEDS: THEOPHYLLINE 400 MG T24(UNIPHYL) PO SCH (09:02)
[2016-06-18] MEDS: Enoxaparin 40 mg Syringe SC SCH (09:02)
[2016-06-18] MEDS: Pantoprazole 40 mg EC Tab PO SCH (09:02)
[2016-06-18] MEDS: Lactobacillus Acidophilus 500 MU Cap PO SCH ×2 (09:05→16:48)
--- NOTE | 2016-06-18 09:08 | CP.PCM.PN ---
Subjective - Date & Time of Evaluation Date of Evaluation: 06/18/16 Time of Evaluation: 08:30 - Subjective Subjective: No fever facial abscess smaller less SOB today- still on High Flow Oxygen no CP no abd pain pedal edema better than yesterday K level still 2.7 despite 80meq of KCl yesterday ( received IV Lasix 60mg total yesterday) Objective - Vital Signs/Intake and Output Vital Signs (last 24 hours): Temp Pulse Resp BP Pulse Ox 97.3 F L 99 H 18 122/72 98 06/18/16 08:44 06/18/16 08:44 06/18/16 08:44 06/18/16 08:44 06/18/16 08:44 - Medications Medications: Current Medications Acetaminophen (Tylenol 325mg Tab) 650 mg PO Q6 PRN PRN Reason: Pain, moderate (4-7) Last Admin: 06/18/16 06:39 Dose: 650 mg Acetylcysteine (Mucomyst 10% 4ml) 2 ml IH RQID [facility] Last Admin: 06/18/16 07:54 Dose: 2 ml Albuterol Sulfate (Albuterol 0.083% Inhal Aby (2.5 Mg/3 Ml) Ud) 2.5 mg INH RQ4 PRN PRN Reason: Shortness of Breath Last Admin: 06/18/16 01:03 Dose: 2.5 mg Albuterol/Ipratropium (Duoneb 3 Mg/0.5 Mg (3 Ml) Ud) 3 ml INH RQID [facility] Last Admin: 06/18/16 07:54 Dose: 3 ml Anastrozole (Arimidex 1 Mg Tab) 1 mg PO DAILY [facility] Last Admin: 06/17/16 09:30 Dose: 1 mg Aspirin (Ecotrin) 81 mg PO DAILY [facility] Last Admin: 06/17/16 09:30 Dose: 81 mg Baclofen (Lioresal) 10 mg PO HS [facility] Last Admin: 06/17/16 21:10 Dose: 10 mg Enoxaparin Sodium (Lovenox) 40 mg SC DAILY [facility] PRN Reason: Protocol Last Admin: 06/17/16 10:12 Dose: 40 mg Furosemide (Lasix) 40 mg IVP DAILY [facility] Last Admin: 06/17/16 10:10 Dose: 40 mg Gabapentin (Neurontin) 600 mg PO TID [facility] Last Admin: 06/17/16 17:46 Dose: 600 mg Iron Sucrose 100 mg/ Sodium (Chloride) 105 mls @ 105 mls/hr IVPB DAILY [facility] Last Admin: 06/17/16 10:00 Dose: 105 mls/hr Hydrocortisone Sodium Succinate 100 mg/ Sodium Chloride 100 mls @ 100 mls/hr IV Q12 [facility] Last Admin: 06/17/16 20:31 Dose: 100 mls/hr Vancomycin HCl 500 mg/ Sodium (Chloride) 100 mls @ 100 mls/hr IVPB Q12H [facility] Last Admin: 06/17/16 20:34 Dose: 100 mls/hr Potassium Chloride (Potassium Cl 10meq/50ml Sterile Water) 50 mls @ 50 mls/hr IVPB Q1 [facility] Stop: 06/18/16 12:59 Lactobacillus Acidophilus (Bacid Acidophilus) 1 cap PO BID [facility] Last Admin: 06/17/16 17:46 Dose: 1 cap Levothyroxine Sodium (Synthroid) 100 mcg PO 0630 [facility] Last Admin: 06/18/16 06:36 Dose: 100 mcg Multi-Ingredient Cream (Hydrocerin Cream) 1 applic TOP BID [facility] Last Admin: 06/17/16 17:49 Dose: 1 applic Multivitamins/Minerals (Therapeutic-M Tab) 1 tab PO DAILY [facility] Last Admin: 06/17/16 09:30 Dose: 1 tab Pantoprazole Sodium (Protonix Ec Tab) 40 mg PO DAILY [facility] Last Admin: 06/17/16 09:30 Dose: 40 mg Senna/Docusate Sodium (Senokot S 50 Mg-8.6 Mg) 1 tab PO HS [facility] Last Admin: 06/11/16 21:19 Dose: 1 tab Theophylline (Uniphyl) 400 mg PO DAILY [facility] Last Admin: 06/17/16 09:30 Dose: 400 mg Verapamil HCl (Calan Tab) 40 mg PO TID [facility] Last Admin: 06/17/16 17:44 Dose: Not Given Zolpidem Tartrate (Ambien) 5 mg PO HS PRN PRN Reason: Sleep Last Admin: 06/17/16 21:14 Dose: 5 mg - Labs Labs: 06/18/16 05:05 06/18/16 05:05 PT 11.0 SECONDS (9.6-11.2) 06/09/16 04:10 INR 1.06 (0.92-1.08) 06/09/16 04:10 APTT 27.5 SECONDS (23.3-32.5) 06/03/16 22:33 - Constitutional Appears: Chronically Ill - Head Exam Head Exam: NORMAL INSPECTION, NORMOCEPHALIC - Eye Exam Eye Exam: EOMI, Normal appearance Pupil Exam: NORMAL ACCOMMODATION - ENT Exam ENT Exam: Mucous Membranes Dry, Normal External Ear Exam Additional comments: right facial swelling, markedly decreased , still with some tenderness - Neck Exam Neck Exam: Full ROM. absent: Meningismus - Respiratory Exam Respiratory Exam: Rales, Rhonchi. absent: Wheezes on High Flow Oxygen - Cardiovascular Exam Cardiovascular Exam: REGULAR RHYTHM, +S1, +S2 - GI/Abdominal Exam GI & Abdominal Exam: Soft, Normal Bowel Sounds. absent: Tenderness - Extremities Exam Extremities Exam: Normal Capillary Refill, + Pedal Edema Additional comments: abrasions LE - Back Exam Back Exam: absent: CVA tenderness (L), CVA tenderness (R) - Neurological Exam Neurological Exam: Alert, Awake, CN II-XII Intact, Oriented x3 - Psychiatric Exam Psychiatric exam: Normal Affect, Normal Mood - Skin Skin Exam: Dry, Normal Color, Warm Assessment and Plan (1) Acute and chronic respiratory failure with hypercapnia Status: Acute (2) Osteomyelitis of mandible Status: Acute (3) Hypothyroidism Status: Acute (4) Acute exacerbation of chronic obstructive pulmonary disease (COPD) Status: Acute (5) HTN (hypertension) Status: Chronic (6) Hx of breast cancer Status: Chronic (7) Acute exacerbation of CHF (congestive heart failure) Status: Acute (8) Hypokalemia Status: Acute (9) DVT prophylaxis Status: Acute - Assessment and Plan (Free Text) Assessment: 66 y/o female PMH COPD, bilateral breast CA s/p chemo and radiation 8 years ago with bone mets to shoulder (s/p humerus resection), HTN, hyperthyroidism presented with 2 week history of worsening bilateral lower extremity swelling and weakness, unable to get herself up to her walker. Patient has mild dyspnea at baseline. She also noted to have right facial swelling for almost 2 weeks and was taking PO antibiotics prescribed by her dentist. Patient was admitted for generalized weakness , Hyponatremia and facial abscess. She was started on IV Clinda and Zosyn for facial abscess and Lasix IV with fluid restriction for LE edema . At present she is afebrile, Maxillofacial Ct showed possible abscess accumulation and patient had purulent discharge from an opening in oral mucosa. Evaluated by maxillofacial surgeon and underwent Incision and drainage of abscess. At present with no positive cultures. Bone scan showed possible osteomyelitis so she was started on Vancomycin and Zosyn IV (4-6 weeks as per ID recommendations). Has some dyspnea even at rest - started on High Flow Oxygen. 1. Acute on Chronic Respiratory Insufficiency with hypercapnea Most likely secondary to COPD excerbation with acute bronchitis and CHF exacerbation CT chest w/o contrast showed small to moderate bilateral pleural effusion IR consulted for possible Thoracentesis however there is not enough fluid seen on US Continue diuresis with Lasix IV Continue Duonebs, Hydrocortisone and Theophylline Cont High Flow O2 30 l/min on FIO2 28 % Continue Chest PT and Acapella therapy 2. Facial abscess with mandibular Osteomyelitis s/p drainage of abscess Patient is afebrile, improving Maxillofacial Ct showed :Large enhancing wall collection seen around the mid and upper right mandibular ramus and mandibular neck extending anteriorly and seen medial and lateral to the right zygomatic arch. This collection contains foci of air. The density and the appearance of this collection suggestive of abscess formation. The collection is seen anterior to the right parotid gland and extending medially to the posterior right oral cavity. [id number] right maxillary sinus mucosal thickening and small air-fluid level. Partial opacification of both mastoids suggestive of mastoiditis. ID on consult: Dr Obrien. Rec IV Vanco and Zosyn x 6 wks total ( # Day ) OMFS Dr. Ambrose consulted and patient underwent Incision and drainage on 06/09 All cultures with no growth so far pathology report showed inflammatory cells, no malignancy Nuclear Bone Scan suggestive of osteomyelitis Tunneled central line placed for nursing home IV antibiotics- this will need to be d/c by IR after IV abx treatment is completed ( as discussed with Dr Gunter - pt was informed of need for ff up after abx tx) 3. Bilateral LE edema sec to CHF exacerbation with diastolic dysfxn Echo showed EF 40-45 % and dilated RV continue fluid restriction , Lasix 40 mg IV daily and prn CT chest showed bilateral small to moderate pleural effusion Podiatry consulted for dorsum pain and wound consult for LE abrasions 4.Hypokalemia Most likely diuretic induced replete as necessary KCl runs and PO given today, rpt K level this afternoon, Mag Oxide given 5.Hyponatremia, resolved most likely secondary to solute depletion and infection Continue fluid restriction 6.Hx breast ca, bilateral stable, s/p bilateral mastectomy continue arimidex 7.Hypertension on the low side d/c Metoprolol Decreased Verapamil to 40 mg TID 8. Hypothyroidism patient has history of hyperthyroidism and was on Methimazole. Now patient has developed hypothyroidism TSH 41 Endo consulted - Dr Vu following pt D/c methimazole and started Synthroid - increased dose to 100 mg po QD 9. Anemia, chronic dis monitor anemia work up showed depleted iron stores Venofer IV given 10.DVT ppx lovenox
[2016-06-18] MEDS: Hydrocerin CREAM TOP SCH ×2 (09:11→17:07)
--- NOTE | 2016-06-18 13:44 | PN ---
DATE: 06/18/2016 ROOM: 404 This is a 66-year-old female with recent uncontrolled and overt hypothyroidism with a history of sign ificant hyperthyroidism and is now being followed closely for metabolic management. She presented he re with acute exacerbation of congestive heart failure with underlying COPD and hypoxemia and is now being followed closely for metabolic management. Her latest chemistries showed a BUN of 12, sodium 139, potassium 2.7, chloride 95, CO2 39, glucose 12 2 and creatinine 0.4. Her latest thyroid studies showed a T4 of 3.71 with a TSH of 41.10 and a free T4 of 0.13. Her albumin levels are also as noted. So at this time, we will continue the low dose medical therapy with levothyroxine given as 75 mcg onc e daily as ordered. We will obtain serial chemistries and supplement accordingly as needed. We will follow. Polly Vu MD cc: [id number] TT: 06/18/2016 13:44:11 Confirmation # [id number] Dictation # [id number] en
[2016-06-18] MEDS: Hydrocortisone- 100 MG in Sodium Chloride 0.9% 100 ML IV SCH ×2 (15:28→22:10)
--- NOTE | 2016-06-18 15:46 | CP.CCUPN ---
CCU Subjective - Physician Review Subjective (Free Text): MEDICAL RECEPTIONIST ASSISTANT PROGRESS NOTE Patient examined, interim events reviewed, discussed with Pulm and PMD: 66 F admitted 3 weeks ago for R facial swelling and found to have R mandibular osteomyelitis. Also had c/o SOB, increasing LE edema and generalized weakness. PMH includes severe COPD, hyperthyroidism, Met breast CA with bilat mastectomy, Humeral prosthesis placement and removal, chronic neck/LBP syndrome. As she has been managed on the Telemetry unit, she has developed more dyspnea and now exhibits increased work of breathing despite on HFNC at 28% oxygen and 35%LPM flow; and breathing with mouth open. She exhibits extensive use of accessory mm and visibly lifting chest to breathe, and is tachypneic at 28-30 /min. SPO2 95% on 28% O2. She does not appear diaphoretic, nor c/o chest discomfort, but spontaneous cough reflex is weak and copious secretions heard on cough with poor expectoration. Denies fevers, chills, dizziness, palpitations, sweats, nausea, or abdominal discomfort. HR 124, BP 100/70. ROS: as above, no other pertinent negs or positives on 10 system review. Allergies: NKDA PMFSH: all nursing and historical notes reviewed, no new pertinent data relevant to current problems. Home meds: Arimadex, ASA, Atrovent, Breo, Cipro, Baclodfen, methimazole, Gabapentin, Prilosec, oxycodone, Proair, Prednisone, Spiriva, [facility] Meds: Muycomyst, Duoneb, Lovenox, Lasix, Hydrocortisone, Iron sucrose, BAcid, Synthroid, Protonix, Maximiliano, Verapamil, Vanco, Xanax prn No other distress noted: EXAM- HEENT: no icterus, pupils equal and reactive, prominent induration R cheek NECK: no visible JVD, supple, carotids equal upstroke bilat/no bruits, trach stoma intact, no bleeding noted. NGT in R nares. CHEST: decreased BS bases, no wheezes audible. R upper chest PICC. Left mastectomy HEART: regular, distant, S1S2, no murmur audible, no rubs. ABD: soft, mildly obese, no increased distention, no focal tenderness, no HSM. BS hypoactive, EXT: +++ edema, RUE chronically edematous with lymphedema, no peripheral/ digital cyanosis, no calf tenderness or palpable cords, distal pulses intact and symmetrical NEURO: oriented x 3; no gross focal motor deficits SKIN: no rashes LABS: WBC= 10.6 HGB= 8.0 PLTs= 359K Na= 139 K= 2.7 HCO3= 39 BUN/Cr= 12/0.4 BS= 122 Mag= 1.9 Phos = 3.0 PCT= 0.13 Last CXR 06/13/[address] Chest 06/14/16 films and results reviewed. Assessment: 1. Acute hypercapneic hypoxemic Resp Failure, 2 Bronchitis and poor mobilization of secretions; on HFNC, h/o COPD with Emphysematous lung disease. 2. R Mandible Osteomyelitis 3. Severe hypokalemia 4. Anasarca / Severe hypoalbuminema 5. h/o Hyperthyroidism, and now Hypothyroid. 6. h/o metastatic breast CA PLAN: 1. Move to ICU for closer resp monitoring and watch for need for more assisted breathing support. 2. Repeat CXR, continue steroids, Duonebs and empiric abx coverage. 3. Adjust HFNC: patient complaining of feeling warm and hot from the heated/ humidified O2. May need to adjust/increase delivered flow rate and delivered O2 temperature. 4. Will consider trial at BiPAP support if mask application is tolerable given persistent, but markedly imporved facial swelling over R cheek. 5. Supplement more K to prevent muscle resp muscle fatigue. Would also supplement Mag despite low normal level. 6. Cautious diuretics PRN, ECHO results from 06/14/16 reviewed. Consider Aldactone instead of Lasix. 7. Discretion for MV support discussed with patient and no Advance Directives noted.
[2016-06-18 15:54] LABS: POTASSIUM 3.8 MMOL/L (3.6-5.0)
[2016-06-18 16:28] LABS: THYROID STIMULATING HORMONE 13.7 mIU/ML (0.46-4.68)
--- NOTE | 2016-06-18 17:13 | CP.PCM.PN ---
Subjective - Date & Time of Evaluation Date of Evaluation: 06/18/16 Time of Evaluation: 17:09 - Subjective Subjective: ID NOTE TRANSFERRED to ICU FOR RESPIRATORY INSUFFICIENCY STILL NEEDS RX FOR MANDIBULAR OSTEOMYELITIS ON VANCOMYCIN(TROUGH IS PENDING) HAVE ADDED MEROPENEM LUNGS:DECREASED BREATH SOUNDS Objective - Vital Signs/Intake and Output Vital Signs (last 24 hours): Temp Pulse Resp BP Pulse Ox 98.2 F 110 H 17 108/67 96 06/18/16 16:00 06/18/16 16:49 06/18/16 16:02 06/18/16 16:49 06/18/16 16:00 - Medications Medications: Current Medications Acetaminophen (Tylenol 325mg Tab) 650 mg PO Q6 PRN PRN Reason: Pain, moderate (4-7) Last Admin: 06/18/16 06:39 Dose: 650 mg Acetylcysteine (Mucomyst 10% 4ml) 2 ml IH RQID [facility] Last Admin: 06/18/16 16:02 Dose: 2 ml Albuterol Sulfate (Albuterol 0.083% Inhal Aby (2.5 Mg/3 Ml) Ud) 2.5 mg INH RQ4 PRN PRN Reason: Shortness of Breath Last Admin: 06/18/16 01:03 Dose: 2.5 mg Albuterol/Ipratropium (Duoneb 3 Mg/0.5 Mg (3 Ml) Ud) 3 ml INH RQID [facility] Last Admin: 06/18/16 16:02 Dose: 3 ml Anastrozole (Arimidex 1 Mg Tab) 1 mg PO DAILY [facility] Last Admin: 06/18/16 09:04 Dose: 1 mg Aspirin (Ecotrin) 81 mg PO DAILY [facility] Last Admin: 06/18/16 09:00 Dose: 81 mg Baclofen (Lioresal) 10 mg PO HS [facility] Last Admin: 06/17/16 21:10 Dose: 10 mg Capsaicin (Trixaicin Cream) 1 applic TOP BID [facility] Last Admin: 06/18/16 17:07 Dose: 1 applic Enoxaparin Sodium (Lovenox) 40 mg SC DAILY [facility] PRN Reason: Protocol Last Admin: 06/18/16 09:02 Dose: 40 mg Furosemide (Lasix) 40 mg IVP DAILY [facility] Last Admin: 06/18/16 09:01 Dose: 40 mg Gabapentin (Neurontin) 600 mg PO TID [facility] Last Admin: 06/18/16 16:49 Dose: 600 mg Iron Sucrose 100 mg/ Sodium (Chloride) 105 mls @ 105 mls/hr IVPB DAILY [facility] Last Admin: 06/17/16 10:00 Dose: 105 mls/hr Hydrocortisone Sodium Succinate 100 mg/ Sodium Chloride 100 mls @ 100 mls/hr IV Q12 [facility] Last Admin: 06/18/16 15:28 Dose: 100 mls/hr Vancomycin HCl 500 mg/ Sodium (Chloride) 100 mls @ 100 mls/hr IVPB Q12H [facility] Last Admin: 06/18/16 14:54 Dose: 100 mls/hr Meropenem 1 gm/ Sodium (Chloride) 100 mls @ 100 mls/hr IVPB Q12H [facility] Lactobacillus Acidophilus (Bacid Acidophilus) 1 cap PO BID [facility] Last Admin: 06/18/16 16:48 Dose: 1 cap Levothyroxine Sodium (Synthroid) 100 mcg PO 0630 [facility] Last Admin: 06/18/16 06:36 Dose: 100 mcg Multi-Ingredient Cream (Hydrocerin Cream) 1 applic TOP BID [facility] Last Admin: 06/18/16 17:07 Dose: 1 applic Multivitamins/Minerals (Therapeutic-M Tab) 1 tab PO DAILY [facility] Last Admin: 06/18/16 09:01 Dose: 1 tab Pantoprazole Sodium (Protonix Ec Tab) 40 mg PO DAILY [facility] Last Admin: 06/18/16 09:02 Dose: 40 mg Senna/Docusate Sodium (Senokot S 50 Mg-8.6 Mg) 1 tab PO HS [facility] Last Admin: 06/11/16 21:19 Dose: 1 tab Theophylline (Uniphyl) 400 mg PO DAILY [facility] Last Admin: 06/18/16 09:02 Dose: 400 mg Verapamil HCl (Calan Tab) 40 mg PO TID [facility] Last Admin: 06/18/16 16:49 Dose: 40 mg Zolpidem Tartrate (Ambien) 5 mg PO HS PRN PRN Reason: Sleep Last Admin: 06/17/16 21:14 Dose: 5 mg - Labs Labs: 06/18/16 05:05 06/18/16 15:30 PT 11.0 SECONDS (9.6-11.2) 06/09/16 04:10 INR 1.06 (0.92-1.08) 06/09/16 04:10 APTT 27.5 SECONDS (23.3-32.5) 06/03/16 22:33
[2016-06-18] MEDS ORDERED: Meropenem 1 GM in Sodium Chloride 0.9% 100 ML IVPB SCH (17:15)
[2016-06-19] MEDS: Levothyroxine 100 MCG TAB PO SCH (05:51)
[2016-06-19 06:44] LABS: HEMATOCRIT 27.8 % (34.0-47.0); MEAN CELL VOLUME 72.8 fl (81.0-99.0); MEAN CORPUSCULAR HEMOGLOBIN 20.9 pg (27.0-31.0); MEAN CORPUSCULAR HGB CONC 28.7 g/dL (33.0-37.0); RED CELL DISTRIBUTION WIDTH 24.6 % (11.5-14.5); WHITE BLOOD COUNT 10.3 K/uL (4.8-10.8)
[2016-06-19 07:04] LABS: BLOOD UREA NITROGEN 14 mg/dl (7-17); CALCIUM 8.5 mg/dL (8.4-10.2); CARBON DIOXIDE 36 mmol/L (22-30); CHLORIDE 97 mmol/L (98-107); GFR AFRICAN-AMERICAN > 60; GLUCOSE,RANDOM 129 mg/dL (65-105); POTASSIUM 3.2 MMOL/L (3.6-5.0); SODIUM 140 mmol/l (132-148)
[2016-06-19] MEDS: Albuterol-Ipratrop 3 mg / 0.5 (3 ml) UD INH SCH ×4 (08:08→19:44)
[2016-06-19] MEDS: Acetylcysteine 10% 4 ML IH SCH ×4 (08:08→19:44)
[2016-06-19] MEDS ORDERED: Potassium Chloride 20 mEq/15 ml LIQ UD PO ONE (08:15)
--- NOTE | 2016-06-19 09:11 | CP.CCUPN ---
CCU Subjective - Physician Review Events Since Last Encounter (Free Text): 06/19/16 09:09 Patient awake, on high flow O2, no fever, no vomiting, no pressors, follow commands, events reviewed CCU Objective - Vital Signs / Intake & Output Vital Signs (Last 4 hours): Vital Signs Temp Pulse Resp BP Pulse Ox 06/19/16 08:42 22 06/19/16 08:00 98.5 F 104 H 22 118/71 100 06/19/16 06:00 100 H 15 106/65 93 L Intake and Output (Last 8hrs): Intake & Output 06/18/16 06/19/16 06/19/16 22:59 06:59 14:59 Intake Total 320 500 Output Total 1000 350 Balance -680 150 Intake: IV 300 Intake, Piggyback 200 Oral 120 200 Output: Urine 1000 350 Urethral (Gutierrez) 1000 350 - Physical Exam Head: Positive for: Atraumatic Pupils: Positive for: PERRL Conjunctiva: Positive for: Normal Mouth: Positive for: Moist Mucous Membranes Pharnyx: Positive for: Normal Nose (External): Positive for: Atraumatic Neck: Positive for: Normal Range of Motion Respiratory/Chest: Positive for: Rhonchi Cardiovascular: Positive for: Regular Rate and Rhythm Abdomen: Positive for: Normal Bowel Sounds Upper Extremity: Positive for: Other (Rt arm swelling) Lower Extremity: Positive for: Normal Inspection Neurological: Positive for: GCS=15, Speech Normal Skin: Positive for: Warm, Dry Psychiatric: Positive for: Alert, Oriented x 3 - Medications Active Medications: Active Medications Generic Name Dose Route Start Last Admin Trade Name Freq PRN Reason Stop Dose Admin Acetaminophen 650 mg 06/11/16 21:34 06/18/16 06:39 Tylenol 325mg Tab PO 650 mg Q6 PRN Administration Pain, moderate (4-7) Acetylcysteine 2 ml 06/16/16 16:00 06/19/16 08:08 Mucomyst 10% 4ml IH 2 ml RQID [facility] Administration Albuterol Sulfate 2.5 mg 06/07/16 09:55 06/18/16 22:00 Albuterol 0.083% Inhal Aby (2.5 Mg/3 Ml) Ud INH 2.5 mg RQ4 PRN Administration Shortness of Breath Albuterol/Ipratropium 3 ml 06/11/16 12:00 06/19/16 08:08 Duoneb 3 Mg/0.5 Mg (3 Ml) Ud INH 3 ml RQID [facility] Administration Anastrozole 1 mg 06/04/16 09:00 06/18/16 09:04 Arimidex 1 Mg Tab PO 1 mg DAILY [facility] Administration Aspirin 81 mg 06/04/16 09:00 06/18/16 09:00 Ecotrin PO 81 mg DAILY [facility] Administration Baclofen 10 mg 06/04/16 22:00 06/18/16 23:23 Lioresal PO 10 mg HS [facility] Administration Capsaicin 1 applic 06/18/16 17:00 06/18/16 17:07 Trixaicin Cream TOP 1 applic BID [facility] Administration Enoxaparin Sodium 40 mg 06/04/16 09:00 06/18/16 09:02 Lovenox SC 40 mg DAILY [facility] Administration Protocol Furosemide 40 mg 06/14/16 10:45 06/18/16 09:01 Lasix IVP 40 mg DAILY [facility] Administration Gabapentin 600 mg 06/04/16 09:00 06/18/16 16:49 Neurontin PO 600 mg TID [facility] Administration Iron Sucrose 100 mg/ Sodium 105 mls @ 105 mls/hr 06/15/16 09:00 06/18/16 17:14 Chloride IVPB 105 mls/hr DAILY [facility] Administration Hydrocortisone Sodium 100 mls @ 100 mls/hr 06/15/16 21:00 06/18/16 22:10 Succinate 100 mg/ Sodium IV 100 mls/hr Chloride Q12 [facility] Administration Vancomycin HCl 500 mg/ Sodium 100 mls @ 100 mls/hr 06/16/16 21:00 06/18/16 22: 12 Chloride IVPB 100 mls/hr Q12H [facility] Administration Meropenem 1 gm/ Sodium 100 mls @ 100 mls/hr 06/19/16 08:00 Chloride IVPB Q12@0800,2000 [facility] Lactobacillus Acidophilus 1 cap 06/04/16 17:00 06/18/16 16:48 Bacid Acidophilus PO 1 cap BID [facility] Administration Levothyroxine Sodium 100 mcg 06/12/16 06:30 06/19/16 05:51 Synthroid PO 100 mcg 0630 [facility] Administration Multi-Ingredient Cream 1 applic 06/07/16 10:00 06/18/16 17:07 Hydrocerin Cream TOP 1 applic BID [facility] Administration Multivitamins/Minerals 1 tab 06/04/16 09:00 06/18/16 09:01 Therapeutic-M Tab PO 1 tab DAILY [facility] Administration Pantoprazole Sodium 40 mg 06/04/16 09:00 06/18/16 09:02 Protonix Ec Tab PO 40 mg DAILY [facility] Administration Potassium Chloride 20 meq 06/20/16 09:00 Potassium Chloride Oral Soln PO DAILY [facility] Senna/Docusate Sodium 1 tab 06/08/16 22:00 06/11/16 21:19 Senokot S 50 Mg-8.6 Mg PO 1 tab HS [facility] Administration Theophylline 400 mg 06/15/16 09:00 06/18/16 09:02 Uniphyl PO 400 mg DAILY [facility] Administration Verapamil HCl 40 mg 06/11/16 17:00 06/18/16 16:49 Calan Tab PO 40 mg TID [facility] Administration Zolpidem Tartrate 5 mg 06/14/16 22:14 06/17/16 21:14 Ambien PO 5 mg HS PRN Administration Sleep - Patient Studies Lab Studies: Lab Studies 06/19/16 06/18/16 06/18/16 Range/Units 05:30 21:40 15:30 WBC 10.3 (4.8-10.8) K/uL RBC 3.82 (3.80-5.20) Mil/uL Hgb 8.0 L (12.0-16.0) g/dL Hct 27.8 L (34.0-47.0) % MCV 72.8 L D (81.0-99.0) fl MCH 20.9 L (27.0-31.0) pg MCHC 28.7 L (33.0-37.0) g/dL RDW 24.6 H (11.5-14.5) % Plt Count 404 H (130-400) K/uL Sodium 140 (132-148) mmol/l Potassium 3.2 L 3.8 (3.6-5.0) MMOL/L Chloride 97 L (98-107) mmol/L Carbon Dioxide 36 H (22-30) mmol/L Anion Gap 10 (10-20) BUN 14 (7-17) mg/dl Creatinine 0.4 L (0.7-1.2) mg/dL Est GFR ( Amer) > 60 Est GFR (Non-Af Amer) > 60 Random Glucose 129 H (65-105) mg/dL Calcium 8.5 (8.4-10.2) mg/dL TSH 3rd Generation 13.70 H (0.46-4.68) mIU/ML Vancomycin Trough 7.8 (5.0-10.0) ug/mL Laboratory Results - last 24 hr 06/18/16 06/18/16 06/19/16 15:30 21:40 05:30 WBC 10.3 RBC 3.82 Hgb 8.0 L Hct 27.8 L MCV 72.8 L D MCH 20.9 L MCHC 28.7 L RDW 24.6 H Plt Count 404 H Sodium 140 Potassium 3.8 3.2 L Chloride 97 L Carbon Dioxide 36 H Anion Gap 10 BUN 14 Creatinine 0.4 L Est GFR ( Amer) > 60 Est GFR (Non-Af Amer) > 60 Random Glucose 129 H Calcium 8.5 TSH 3rd Generation 13.70 H Vancomycin Trough 7.8 Critical Care Progress Note - Nutrition Nutrition: Nutrition Category Date Time Status Regular Diet [DIET] Diets 06/11/16 Dinner Active Assessment/Plan - Assessment and Plan (Free Text) Assessment: A/p Respiratory insufficiency, COPD, Rt mandibular osteomyelitis, met breast ca, hypokalemia, h/o hyperthyroid now hypothyroid - High flow O2 - BIPAP as needed - Bronchodilators - Antibiotics - ID follow up - Pulmonary toilets - Continue meds
[2016-06-19] MEDS: Enoxaparin 40 mg Syringe SC SCH (09:21)
[2016-06-19] MEDS: Meropenem 1 GM in Sodium Chloride 0.9% 100 ML IVPB SCH ×2 (09:22→21:13)
[2016-06-19] MEDS: Pantoprazole 40 mg EC Tab PO SCH (09:23)
[2016-06-19] MEDS: Hydrocortisone- 100 MG in Sodium Chloride 0.9% 100 ML IV SCH ×2 (09:23→21:14)
[2016-06-19] MEDS: Multivitamin With Minerals Tab PO SCH (09:24)
[2016-06-19] MEDS: THEOPHYLLINE 400 MG T24(UNIPHYL) PO SCH (09:24)
[2016-06-19] MEDS: Lactobacillus Acidophilus 500 MU Cap PO SCH ×2 (09:26→16:32)
[2016-06-19] MEDS: Hydrocerin CREAM TOP SCH ×2 (09:44→16:23)
--- NOTE | 2016-06-19 11:21 | CP.PCM.PN ---
Subjective - Date & Time of Evaluation Date of Evaluation: 06/19/16 Time of Evaluation: 10:30 - Subjective Subjective: was tramnsferred to ICU for monitoring yesterday afternoon No fever feels sl better today than yesterday, SOB better less tachycardic not as tachypneic Remains on High Flow minimal tenderness right facial abscess no CP no abd pain + BM Objective - Vital Signs/Intake and Output Vital Signs (last 24 hours): Temp Pulse Resp BP Pulse Ox 98.5 F 109 H 23 129/73 100 06/19/16 08:00 06/19/16 10:00 06/19/16 10:00 06/19/16 10:00 06/19/16 10:00 Intake and Output: 06/19/16 06/19/16 06:59 18:59 Intake Total 500 800 Output Total 350 425 Balance 150 375 - Medications Medications: Current Medications Acetaminophen (Tylenol 325mg Tab) 650 mg PO Q6 PRN PRN Reason: Pain, moderate (4-7) Last Admin: 06/18/16 06:39 Dose: 650 mg Acetylcysteine (Mucomyst 10% 4ml) 2 ml IH RQID [facility] Last Admin: 06/19/16 08:08 Dose: 2 ml Albuterol Sulfate (Albuterol 0.083% Inhal Aby (2.5 Mg/3 Ml) Ud) 2.5 mg INH RQ4 PRN PRN Reason: Shortness of Breath Last Admin: 06/18/16 22:00 Dose: 2.5 mg Albuterol/Ipratropium (Duoneb 3 Mg/0.5 Mg (3 Ml) Ud) 3 ml INH RQID [facility] Last Admin: 06/19/16 08:08 Dose: 3 ml Anastrozole (Arimidex 1 Mg Tab) 1 mg PO DAILY [facility] Last Admin: 06/19/16 09:18 Dose: 1 mg Aspirin (Ecotrin) 81 mg PO DAILY [facility] Last Admin: 06/19/16 09:21 Dose: 81 mg Baclofen (Lioresal) 10 mg PO HS [facility] Last Admin: 06/18/16 23:23 Dose: 10 mg Capsaicin (Trixaicin Cream) 1 applic TOP BID [facility] Last Admin: 06/19/16 09:24 Dose: 1 applic Enoxaparin Sodium (Lovenox) 40 mg SC DAILY [facility] PRN Reason: Protocol Last Admin: 06/19/16 09:21 Dose: 40 mg Furosemide (Lasix) 40 mg IVP DAILY [facility] Last Admin: 06/19/16 09:21 Dose: 40 mg Gabapentin (Neurontin) 600 mg PO TID [facility] Last Admin: 06/19/16 09:23 Dose: 600 mg Iron Sucrose 100 mg/ Sodium (Chloride) 105 mls @ 105 mls/hr IVPB DAILY [facility] Last Admin: 06/19/16 11:10 Dose: 105 mls/hr Hydrocortisone Sodium Succinate 100 mg/ Sodium Chloride 100 mls @ 100 mls/hr IV Q12 [facility] Last Admin: 06/19/16 09:23 Dose: 100 mls/hr Vancomycin HCl 500 mg/ Sodium (Chloride) 100 mls @ 100 mls/hr IVPB Q12H [facility] Last Admin: 06/19/16 09:24 Dose: 100 mls/hr Meropenem 1 gm/ Sodium (Chloride) 100 mls @ 100 mls/hr IVPB Q12@0800,2000 [facility] Last Admin: 06/19/16 09:22 Dose: 100 mls/hr Lactobacillus Acidophilus (Bacid Acidophilus) 1 cap PO BID [facility] Last Admin: 06/19/16 09:26 Dose: 1 cap Levothyroxine Sodium (Synthroid) 100 mcg PO 0630 [facility] Last Admin: 06/19/16 05:51 Dose: 100 mcg Multi-Ingredient Cream (Hydrocerin Cream) 1 applic TOP BID [facility] Last Admin: 06/19/16 09:44 Dose: 1 applic Multivitamins/Minerals (Therapeutic-M Tab) 1 tab PO DAILY [facility] Last Admin: 06/19/16 09:24 Dose: 1 tab Pantoprazole Sodium (Protonix Ec Tab) 40 mg PO DAILY [facility] Last Admin: 06/19/16 09:23 Dose: 40 mg Potassium Chloride (Potassium Chloride Oral Soln) 20 meq PO DAILY [facility] Senna/Docusate Sodium (Senokot S 50 Mg-8.6 Mg) 1 tab PO HS [facility] Last Admin: 06/11/16 21:19 Dose: 1 tab Theophylline (Uniphyl) 400 mg PO DAILY [facility] Last Admin: 06/19/16 09:24 Dose: 400 mg Verapamil HCl (Calan Tab) 40 mg PO TID [facility] Last Admin: 06/19/16 09:18 Dose: 40 mg Zolpidem Tartrate (Ambien) 5 mg PO HS PRN PRN Reason: Sleep Last Admin: 06/17/16 21:14 Dose: 5 mg - Labs Labs: 06/19/16 05:30 06/19/16 05:30 PT 11.0 SECONDS (9.6-11.2) 06/09/16 04:10 INR 1.06 (0.92-1.08) 06/09/16 04:10 APTT 27.5 SECONDS (23.3-32.5) 06/03/16 22:33 - Constitutional Appears: Chronically Ill - Head Exam Head Exam: NORMAL INSPECTION, NORMOCEPHALIC - Eye Exam Eye Exam: EOMI, Normal appearance Pupil Exam: NORMAL ACCOMMODATION - ENT Exam ENT Exam: Mucous Membranes Dry, Normal External Ear Exam Additional comments: right facial swelling, markedly decreased , still with some tenderness - Neck Exam Neck Exam: Full ROM. absent: Meningismus - Respiratory Exam Respiratory Exam: + Rales, Rhonchi. on High Flow Oxygen - Cardiovascular Exam Cardiovascular Exam: REGULAR RHYTHM, +S1, +S2 - GI/Abdominal Exam GI & Abdominal Exam: Soft, Normal Bowel Sounds. absent: Tenderness - Extremities Exam Extremities Exam: Normal Capillary Refill, + Pedal Edema Additional comments: abrasions LE - Back Exam Back Exam: absent: CVA tenderness (L), CVA tenderness (R) - Neurological Exam Neurological Exam: Alert, Awake, CN II-XII Intact, Oriented x3 - Psychiatric Exam Psychiatric exam: Normal Affect, Normal Mood - Skin Skin Exam: Dry, Normal Color, Warm Assessment and Plan (1) Acute and chronic respiratory failure with hypercapnia Status: Acute (2) Osteomyelitis of mandible Status: Acute (3) Hypothyroidism Status: Acute (4) Acute exacerbation of chronic obstructive pulmonary disease (COPD) Status: Acute (5) HTN (hypertension) Status: Chronic (6) Hx of breast cancer Status: Chronic (7) Acute exacerbation of CHF (congestive heart failure) Status: Acute (8) Hypokalemia Status: Acute (9) DVT prophylaxis Status: Acute - Assessment and Plan (Free Text) Assessment: 66 y/o female PMH COPD, bilateral breast CA s/p chemo and radiation 8 years ago with bone mets to shoulder (s/p humerus resection), HTN, hyperthyroidism presented with 2 week history of worsening bilateral lower extremity swelling and weakness, unable to get herself up to her walker. Patient has mild dyspnea at baseline. She also noted to have right facial swelling for almost 2 weeks and was taking PO antibiotics prescribed by her dentist. Patient was admitted for generalized weakness , Hyponatremia and facial abscess. She was started on IV Clinda and Zosyn for facial abscess and Lasix IV with fluid restriction for LE edema . At present she is afebrile, Maxillofacial Ct showed possible abscess accumulation and patient had purulent discharge from an opening in oral mucosa. Evaluated by maxillofacial surgeon and underwent Incision and drainage of abscess. At present with no positive cultures. Bone scan showed possible osteomyelitis so she was started on Vancomycin and Zosyn IV (4-6 weeks as per ID recommendations). Has some dyspnea even at rest - started on High Flow Oxygen- transferred to ICU 06/18 bec of resp distress 1. Acute on Chronic Respiratory Insufficiency with hypercapnea Most likely secondary to COPD excerbation with acute bronchitis and CHF exacerbation CT chest w/o contrast showed small to moderate bilateral pleural effusion IR consulted for possible Thoracentesis however there is not enough fluid seen on US Continue diuresis with Lasix IV Continue Duonebs, IV Hydrocortisone and Theophylline Cont High Flow O2 35 l/min on FIO2 28 % Continue Chest PT , Coughalator and Acapella therapy 2. Facial abscess with mandibular Osteomyelitis s/p drainage of abscess Patient is afebrile, improving Maxillofacial Ct showed :Large enhancing wall collection seen around the mid and upper right mandibular ramus and mandibular neck extending anteriorly and seen medial and lateral to the right zygomatic arch. This collection contains foci of air. The density and the appearance of this collection suggestive of abscess formation. The collection is seen anterior to the right parotid gland and extending medially to the posterior right oral cavity. [id number] right maxillary sinus mucosal thickening and small air-fluid level. Partial opacification of both mastoids suggestive of mastoiditis. Cont IV Vanco, Zosyn changed to meropenem ID on consult: Dr Obrien. Recommended IV abx 6 wks total ( # ) OMFS Dr. 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 Bilateral LE edema sec to CHF exacerbation with diastolic dysfxn Echo showed EF 40-45 % and dilated RV continue fluid restriction , Lasix 40 mg IV daily and prn CT chest showed bilateral small to moderate pleural effusion Podiatry consulted for dorsum pain and wound consult for LE abrasions 4.Hypokalemia Most likely diuretic induced replete as necessary 5.Hyponatremia, resolved most likely secondary to solute depletion and infection Continue fluid restriction 6.Hx breast ca, bilateral stable, s/p bilateral mastectomy continue arimidex 7.Hypertension on the low side d/c Metoprolol Decreased Verapamil to 40 mg TID 8. Hypothyroidism patient has history of hyperthyroidism and was on Methimazole. Now patient has developed hypothyroidism TSH now down to 13 from 41 Endo consulted - Dr Vu following pt D/c methimazole and started Synthroid - increased dose to 100 mg po QD 9. Anemia, chronic dis monitor anemia work up showed depleted iron stores Venofer IV given 10.DVT ppx lovenox
--- NOTE | 2016-06-19 11:38 | CP.PCM.PN ---
Subjective - Date & Time of Evaluation Date of Evaluation: 06/19/16 Time of Evaluation: 11:36 - Subjective Subjective: Seen on rounds, transferred to ICU yesterday, but not intubated. Continues to have SOB at rest. Using cough assist with some sputum being expectorated. SpO2 remains >95% on high flow nasal canula. Remains afebrile, mildly tachycardic, normotensive. CXR done this AM shows hyperinflation w/o consolidation or pneumothorax. Breath sounds are markedly diminished bilaterally. E phase is prolonged and faint high-pitched E wheezes are heard bilaterally. Labs today are stable, k is 3.2 (supplements being given). Will continue present regimen and hopefully intubation will be avoided. All medical and respiratory treatments to continue. ABG requested. Objective - Vital Signs/Intake and Output Vital Signs (last 24 hours): Temp Pulse Resp BP Pulse Ox 98.5 F 109 H 21 129/73 100 06/19/16 08:00 06/19/16 10:00 06/19/16 11:22 06/19/16 10:00 06/19/16 10:00 Intake and Output: 06/18/16 06/19/16 23:59 11:59 Intake Total 320 1300 Output Total 1000 775 Balance -680 525 - Medications Medications: Current Medications Acetaminophen (Tylenol 325mg Tab) 650 mg PO Q6 PRN PRN Reason: Pain, moderate (4-7) Last Admin: 06/18/16 06:39 Dose: 650 mg Acetylcysteine (Mucomyst 10% 4ml) 2 ml IH RQID [facility] Last Admin: 06/19/16 11:20 Dose: 2 ml Albuterol Sulfate (Albuterol 0.083% Inhal Aby (2.5 Mg/3 Ml) Ud) 2.5 mg INH RQ4 PRN PRN Reason: Shortness of Breath Last Admin: 06/18/16 22:00 Dose: 2.5 mg Albuterol/Ipratropium (Duoneb 3 Mg/0.5 Mg (3 Ml) Ud) 3 ml INH RQID [facility] Last Admin: 06/19/16 11:20 Dose: 3 ml Anastrozole (Arimidex 1 Mg Tab) 1 mg PO DAILY [facility] Last Admin: 06/19/16 09:18 Dose: 1 mg Aspirin (Ecotrin) 81 mg PO DAILY [facility] Last Admin: 06/19/16 09:21 Dose: 81 mg Baclofen (Lioresal) 10 mg PO HS [facility] Last Admin: 06/18/16 23:23 Dose: 10 mg Capsaicin (Trixaicin Cream) 1 applic TOP BID [facility] Last Admin: 06/19/16 09:24 Dose: 1 applic Enoxaparin Sodium (Lovenox) 40 mg SC DAILY [facility] PRN Reason: Protocol Last Admin: 06/19/16 09:21 Dose: 40 mg Furosemide (Lasix) 40 mg IVP DAILY [facility] Last Admin: 06/19/16 09:21 Dose: 40 mg Gabapentin (Neurontin) 600 mg PO TID [facility] Last Admin: 06/19/16 09:23 Dose: 600 mg Iron Sucrose 100 mg/ Sodium (Chloride) 105 mls @ 105 mls/hr IVPB DAILY [facility] Last Admin: 06/19/16 11:10 Dose: 105 mls/hr Hydrocortisone Sodium Succinate 100 mg/ Sodium Chloride 100 mls @ 100 mls/hr IV Q12 [facility] Last Admin: 06/19/16 09:23 Dose: 100 mls/hr Vancomycin HCl 500 mg/ Sodium (Chloride) 100 mls @ 100 mls/hr IVPB Q12H [facility] Last Admin: 06/19/16 09:24 Dose: 100 mls/hr Meropenem 1 gm/ Sodium (Chloride) 100 mls @ 100 mls/hr IVPB Q12@0800,2000 [facility] Last Admin: 06/19/16 09:22 Dose: 100 mls/hr Lactobacillus Acidophilus (Bacid Acidophilus) 1 cap PO BID [facility] Last Admin: 06/19/16 09:26 Dose: 1 cap Levothyroxine Sodium (Synthroid) 100 mcg PO 0630 [facility] Last Admin: 06/19/16 05:51 Dose: 100 mcg Multi-Ingredient Cream (Hydrocerin Cream) 1 applic TOP BID [facility] Last Admin: 06/19/16 09:44 Dose: 1 applic Multivitamins/Minerals (Therapeutic-M Tab) 1 tab PO DAILY [facility] Last Admin: 06/19/16 09:24 Dose: 1 tab Pantoprazole Sodium (Protonix Ec Tab) 40 mg PO DAILY [facility] Last Admin: 06/19/16 09:23 Dose: 40 mg Potassium Chloride (Potassium Chloride Oral Soln) 20 meq PO DAILY [facility] Senna/Docusate Sodium (Senokot S 50 Mg-8.6 Mg) 1 tab PO HS [facility] Last Admin: 06/11/16 21:19 Dose: 1 tab Theophylline (Uniphyl) 400 mg PO DAILY [facility] Last Admin: 06/19/16 09:24 Dose: 400 mg Verapamil HCl (Calan Tab) 40 mg PO TID [facility] Last Admin: 06/19/16 09:18 Dose: 40 mg Zolpidem Tartrate (Ambien) 5 mg PO HS PRN PRN Reason: Sleep Last Admin: 06/17/16 21:14 Dose: 5 mg - Labs Labs: 06/19/16 05:30 06/19/16 05:30 PT 11.0 SECONDS (9.6-11.2) 06/09/16 04:10 INR 1.06 (0.92-1.08) 06/09/16 04:10 APTT 27.5 SECONDS (23.3-32.5) 06/03/16 22:33 Assessment and Plan (1) Acute bronchitis with chronic obstructive pulmonary disease (COPD) Status: Acute (2) Hyperthyroidism Status: Chronic (3) Abscess Status: Acute
--- NOTE | 2016-06-19 12:32 | PN ---
DATE: 06/19/2016 ROOM: 404 SUBJECTIVE: This is a 66-year-old female with recent uncontrolled and overt hypothyroidism with this current admission on the background of longstanding history of hyperthyroidism, uncontrolled optimal ly on the medical therapy as given. At this time, she has improved both metabolically and clinically with recent acute exacerbation of COPD and congestive heart failure as noted. Her glycemic levels a re fluctuating, but much improved at this time. Her latest chemistry include a BUN of 12, sodium 139 , potassium 2.7, chloride 95, CO2 of 39, glucose ____ and ____ 8.0. So at this time, we will continu e the low-dose levothyroxine replacement therapy given as 100 mcg daily before breakfast. We will ti trate incrementally as indicated to optimize metabolic control. We will follow. Polly Vu MD cc: [id number] TT: 06/19/2016 12:31:07 Confirmation # [id number] Dictation # [id number]
[2016-06-19 13:06] LABS: ABG ALLEN TEST YES; ARTERIAL BLOOD GAS O2 CAPACITY 12.4 mL/dL (16-24); ARTERIAL BLOOD GAS O2 CONTENT 11.7 ML/dL (15-23); ARTERIAL BLOOD GAS PH 7.56 (7.35-7.45); ARTERIAL BLOOD GAS PO2 61 mm/Hg (80-100); ARTERIAL BLOOD HGB O2 SAT 92.2 % (95.0-98.0); CARBOXYHEMOGLOBIN 1.9 % (0.5-1.5); HHB 5.2 % (0.0-5.0); METHEMOGLOBIN 0.8 % (0.0-3.0)
--- NOTE | 2016-06-19 13:41 | RAD ---
HISTORY: shortness of breath COMPARISON: No prior. FINDINGS: LUNGS: Small right lower lobe infiltrate. PLEURA: No significant pleural effusion identified, no pneumothorax apparent. CARDIOVASCULAR: Cardiomegaly. OSSEOUS STRUCTURES: No significant abnormalities. VISUALIZED UPPER ABDOMEN: Normal. OTHER FINDINGS: Right Port-A-Cath in place. IMPRESSION: No active disease.
[2016-06-19] MEDS: Albuterol 0.083% Inhal Sol (2.5 mg/3 mL) UD INH PRN (23:43)
[2016-06-20] MEDS: Albuterol 0.083% Inhal Sol (2.5 mg/3 mL) UD INH PRN (03:34)
[2016-06-20] MEDS: Levothyroxine 100 MCG TAB PO SCH (06:19)
[2016-06-20 06:36] LABS: HEMATOCRIT 29.7 % (34.0-47.0); MEAN CELL VOLUME 72.6 fl (81.0-99.0); MEAN CORPUSCULAR HEMOGLOBIN 21.2 pg (27.0-31.0); MEAN CORPUSCULAR HGB CONC 29.3 g/dL (33.0-37.0); RED CELL DISTRIBUTION WIDTH 25.4 % (11.5-14.5); WHITE BLOOD COUNT 13.4 K/uL (4.8-10.8)
[2016-06-20 06:42] LABS: BLOOD UREA NITROGEN 15 mg/dl (7-17); CALCIUM 8.5 mg/dL (8.4-10.2); CHLORIDE 97 mmol/L (98-107); GFR AFRICAN-AMERICAN > 60; GLUCOSE,RANDOM 121 mg/dL (65-105); MAGNESIUM 2.1 MG/DL (1.6-2.3); PHOSPHOROUS 3.5 mg/dl (2.5-4.5); POTASSIUM 3.3 MMOL/L (3.6-5.0); SODIUM 141 mmol/l (132-148)
[2016-06-20 06:52] LABS: CARBON DIOXIDE 42 mmol/L (22-30)
[2016-06-20] MEDS: Acetylcysteine 10% 4 ML IH SCH ×3 (07:20→21:19)
[2016-06-20] MEDS: Albuterol-Ipratrop 3 mg / 0.5 (3 ml) UD INH SCH ×4 (07:20→21:20)
--- NOTE | 2016-06-20 07:52 | CP.CCUPN ---
CCU Subjective - Physician Review Events Since Last Encounter (Free Text): 06/20/16 07:52 Patient awake, on high flow O2, no fever, no vomiting, no pressors, follow commands, events reviewed CCU Objective - Vital Signs / Intake & Output Vital Signs (Last 4 hours): Vital Signs Temp Pulse Resp BP Pulse Ox 06/20/16 06:00 110 H 24 124/85 97 06/20/16 04:00 97.9 F 110 H 19 127/79 100 Intake and Output (Last 8hrs): Intake & Output 06/19/16 06/20/16 06/20/16 22:59 06:59 14:59 Intake Total 940 220 Output Total 400 400 Balance 540 -180 Intake: Intake, Piggyback 200 100 Oral 740 120 Output: Urine 400 400 Urethral (Gutierrez) 400 400 - Physical Exam Head: Positive for: Atraumatic Pupils: Positive for: PERRL Conjunctiva: Positive for: Normal Mouth: Positive for: Moist Mucous Membranes Pharnyx: Positive for: Normal Nose (External): Positive for: Atraumatic Neck: Positive for: Normal Range of Motion Respiratory/Chest: Positive for: Rhonchi Cardiovascular: Positive for: Regular Rate and Rhythm Abdomen: Positive for: Normal Bowel Sounds Upper Extremity: Positive for: Other (Rt arm swelling) Lower Extremity: Positive for: Normal Inspection Neurological: Positive for: GCS=15, Speech Normal Skin: Positive for: Warm, Dry Psychiatric: Positive for: Alert, Oriented x 3 - Medications Active Medications: Active Medications Generic Name Dose Route Start Last Admin Trade Name Freq PRN Reason Stop Dose Admin Acetaminophen 650 mg 06/11/16 21:34 06/20/16 06:19 Tylenol 325mg Tab PO 650 mg Q6 PRN Administration Pain, moderate (4-7) Acetylcysteine 2 ml 06/16/16 16:00 06/20/16 07:20 Mucomyst 10% 4ml IH 2 ml RQID [facility] Administration Albuterol Sulfate 2.5 mg 06/07/16 09:55 06/20/16 03:34 Albuterol 0.083% Inhal Aby (2.5 Mg/3 Ml) Ud INH 2.5 mg RQ4 PRN Administration Shortness of Breath Albuterol/Ipratropium 3 ml 06/11/16 12:00 06/20/16 07:20 Duoneb 3 Mg/0.5 Mg (3 Ml) Ud INH 3 ml RQID [facility] Administration Anastrozole 1 mg 06/04/16 09:00 06/19/16 09:18 Arimidex 1 Mg Tab PO 1 mg DAILY [facility] Administration Aspirin 81 mg 06/04/16 09:00 06/19/16 09:21 Ecotrin PO 81 mg DAILY [facility] Administration Baclofen 10 mg 06/04/16 22:00 06/19/16 21:13 Lioresal PO 10 mg HS [facility] Administration Capsaicin 1 applic 06/18/16 17:00 06/19/16 16:23 Trixaicin Cream TOP 1 applic BID [facility] Administration Enoxaparin Sodium 40 mg 06/04/16 09:00 06/19/16 09:21 Lovenox SC 40 mg DAILY [facility] Administration Protocol Furosemide 40 mg 06/14/16 10:45 06/19/16 09:21 Lasix IVP 40 mg DAILY [facility] Administration Gabapentin 600 mg 06/04/16 09:00 06/19/16 16:23 Neurontin PO 600 mg TID [facility] Administration Hydrocortisone Sodium 100 mls @ 100 mls/hr 06/15/16 21:00 06/19/16 21:14 Succinate 100 mg/ Sodium IV 100 mls/hr Chloride Q12 [facility] Administration Vancomycin HCl 500 mg/ Sodium 100 mls @ 100 mls/hr 06/16/16 21:00 06/19/16 21: 14 Chloride IVPB 100 mls/hr Q12H [facility] Administration Meropenem 1 gm/ Sodium 100 mls @ 100 mls/hr 06/19/16 08:00 06/19/16 21:13 Chloride IVPB 100 mls/hr Q12@0800,2000 [facility] Administration Lactobacillus Acidophilus 1 cap 06/04/16 17:00 06/19/16 16:32 Bacid Acidophilus PO 1 cap BID [facility] Administration Levothyroxine Sodium 100 mcg 06/12/16 06:30 06/20/16 06:19 Synthroid PO 100 mcg 0630 [facility] Administration Multi-Ingredient Cream 1 applic 06/07/16 10:00 06/19/16 16:23 Hydrocerin Cream TOP 1 applic BID [facility] Administration Multivitamins/Minerals 1 tab 06/04/16 09:00 06/19/16 09:24 Therapeutic-M Tab PO 1 tab DAILY [facility] Administration Pantoprazole Sodium 40 mg 06/04/16 09:00 06/19/16 09:23 Protonix Ec Tab PO 40 mg DAILY [facility] Administration Potassium Chloride 20 meq 06/20/16 09:00 Potassium Chloride Oral Soln PO DAILY [facility] Senna/Docusate Sodium 1 tab 06/08/16 22:00 06/11/16 21:19 Senokot S 50 Mg-8.6 Mg PO 1 tab HS [facility] Administration Theophylline 400 mg 06/15/16 09:00 06/19/16 09:24 Uniphyl PO 400 mg DAILY [facility] Administration Verapamil HCl 40 mg 06/11/16 17:00 06/19/16 16:22 Calan Tab PO 40 mg TID [facility] Administration Zolpidem Tartrate 5 mg 06/14/16 22:14 06/19/16 21:18 Ambien PO 5 mg HS PRN Administration Sleep - Patient Studies Lab Studies: Lab Studies 06/20/16 06/19/16 06/19/16 Range/Units 05:30 12:57 11:14 WBC 13.4 H (4.8-10.8) K/uL RBC 4.10 (3.80-5.20) Mil/uL Hgb 8.7 L (12.0-16.0) g/dL Hct 29.7 L (34.0-47.0) % MCV 72.6 L (81.0-99.0) fl MCH 21.2 L (27.0-31.0) pg MCHC 29.3 L (33.0-37.0) g/dL RDW 25.4 H (11.5-14.5) % Plt Count 445 H (130-400) K/uL pCO2 44 (35-45) mm/Hg pO2 61 L (80-100) mm/Hg HCO3 37.0 H (21-28) mmol/L ABG pH 7.56 H (7.35-7.45) ABG Total CO2 40.8 H (22-28) mmol/L ABG O2 Saturation 94.7 L (95-98) % ABG O2 Content 11.7 L (15-23) ML/dL ABG Base Excess 15.6 H (-2.0-3.0) mmol/L ABG Hemoglobin 9.0 L (11.7-17.4) g/dL ABG Carboxyhemoglobin 1.9 H (0.5-1.5) % POC ABG HHb (Measured) 5.2 H (0.0-5.0) % ABG Methemoglobin 0.8 (0.0-3.0) % ABG O2 Capacity 12.4 L (16-24) mL/dL Tawanda Test Yes A-a O2 Difference 84.0 mm/Hg Hgb O2 Saturation 92.2 L (95.0-98.0) % FiO2 28.0 % Sodium 141 (132-148) mmol/l Potassium 3.3 L (3.6-5.0) MMOL/L Chloride 97 L (98-107) mmol/L Carbon Dioxide 42 H* (22-30) mmol/L Anion Gap 5 L (10-20) BUN 15 (7-17) mg/dl Creatinine 0.4 L (0.7-1.2) mg/dL Est GFR ( Amer) > 60 Est GFR (Non-Af Amer) > 60 Random Glucose 121 H (65-105) mg/dL Calcium 8.5 (8.4-10.2) mg/dL Phosphorus 3.5 (2.5-4.5) mg/dl Magnesium 2.1 (1.6-2.3) MG/DL Vancomycin Trough (5.0-10.0) ug/mL Theophylline 5.6 L (10-20) ug/ml 06/19/16 Range/Units 04:00 WBC (4.8-10.8) K/uL RBC (3.80-5.20) Mil/uL Hgb (12.0-16.0) g/dL Hct (34.0-47.0) % MCV (81.0-99.0) fl MCH (27.0-31.0) pg MCHC (33.0-37.0) g/dL RDW (11.5-14.5) % Plt Count (130-400) K/uL pCO2 (35-45) mm/Hg pO2 (80-100) mm/Hg HCO3 (21-28) mmol/L ABG pH (7.35-7.45) ABG Total CO2 (22-28) mmol/L ABG O2 Saturation (95-98) % ABG O2 Content (15-23) ML/dL ABG Base Excess (-2.0-3.0) mmol/L ABG Hemoglobin (11.7-17.4) g/dL ABG Carboxyhemoglobin (0.5-1.5) % POC ABG HHb (Measured) (0.0-5.0) % ABG Methemoglobin (0.0-3.0) % ABG O2 Capacity (16-24) mL/dL Tawanda Test A-a O2 Difference mm/Hg Hgb O2 Saturation (95.0-98.0) % FiO2 % Sodium (132-148) mmol/l Potassium (3.6-5.0) MMOL/L Chloride (98-107) mmol/L Carbon Dioxide (22-30) mmol/L Anion Gap (10-20) BUN (7-17) mg/dl Creatinine (0.7-1.2) mg/dL Est GFR ( Amer) Est GFR (Non-Af Amer) Random Glucose (65-105) mg/dL Calcium (8.4-10.2) mg/dL Phosphorus (2.5-4.5) mg/dl Magnesium (1.6-2.3) MG/DL Vancomycin Trough 14.5 H (5.0-10.0) ug/mL Theophylline (10-20) ug/ml Laboratory Results - last 24 hr 06/19/16 06/19/16 06/19/16 04:00 11:14 12:57 WBC RBC Hgb Hct MCV MCH MCHC RDW Plt Count pCO2 44 pO2 61 L HCO3 37.0 H ABG pH 7.56 H ABG Total CO2 40.8 H ABG O2 Saturation 94.7 L ABG O2 Content 11.7 L ABG Base Excess 15.6 H ABG Hemoglobin 9.0 L ABG Carboxyhemoglobin 1.9 H POC ABG HHb (Measured) 5.2 H ABG Methemoglobin 0.8 ABG O2 Capacity 12.4 L Tawanda Test Yes A-a O2 Difference 84.0 Hgb O2 Saturation 92.2 L FiO2 28.0 Sodium Potassium Chloride Carbon Dioxide Anion Gap BUN Creatinine Est GFR ( Amer) Est GFR (Non-Af Amer) Random Glucose Calcium Phosphorus Magnesium Vancomycin Trough 14.5 H Theophylline 5.6 L 06/20/16 05:30 WBC 13.4 H RBC 4.10 Hgb 8.7 L Hct 29.7 L MCV 72.6 L MCH 21.2 L MCHC 29.3 L RDW 25.4 H Plt Count 445 H pCO2 pO2 HCO3 ABG pH ABG Total CO2 ABG O2 Saturation ABG O2 Content ABG Base Excess ABG Hemoglobin ABG Carboxyhemoglobin POC ABG HHb (Measured) ABG Methemoglobin ABG O2 Capacity Tawanda Test A-a O2 Difference Hgb O2 Saturation FiO2 Sodium 141 Potassium 3.3 L Chloride 97 L Carbon Dioxide 42 H* Anion Gap 5 L BUN 15 Creatinine 0.4 L Est GFR ( Amer) > 60 Est GFR (Non-Af Amer) > 60 Random Glucose 121 H Calcium 8.5 Phosphorus 3.5 Magnesium 2.1 Vancomycin Trough Theophylline Critical Care Progress Note - Nutrition Nutrition: Nutrition Category Date Time Status Regular Diet [DIET] Diets 06/11/16 Dinner Active Assessment/Plan - Assessment and Plan (Free Text) Assessment: A/p Respiratory insufficiency, COPD, Rt mandibular osteomyelitis, met breast ca, hypokalemia, h/o hyperthyroid now hypothyroid - High flow O2 - BIPAP as needed - Bronchodilators - Antibiotics - ID follow up - Pulmonary toilets - Continue meds
[2016-06-20] MEDS: Hydrocerin CREAM TOP SCH ×2 (08:35→16:06)
[2016-06-20] MEDS: Enoxaparin 40 mg Syringe SC SCH (08:36)
[2016-06-20] MEDS: Meropenem 1 GM in Sodium Chloride 0.9% 100 ML IVPB SCH ×2 (08:37→20:34)
[2016-06-20] MEDS: Hydrocortisone- 100 MG in Sodium Chloride 0.9% 100 ML IV SCH ×2 (08:39→20:35)
[2016-06-20] MEDS: Potassium Chloride 20 mEq/15 ml LIQ UD PO SCH (08:39)
[2016-06-20] MEDS: Pantoprazole 40 mg EC Tab PO SCH (08:39)
[2016-06-20] MEDS: THEOPHYLLINE 400 MG T24(UNIPHYL) PO SCH (08:40)
[2016-06-20] MEDS: Multivitamin With Minerals Tab PO SCH (08:40)
[2016-06-20] MEDS: Lactobacillus Acidophilus 500 MU Cap PO SCH ×2 (08:46→16:10)
[2016-06-20 10:49] LABS: ABG ALLEN TEST YES; ARTERIAL BLOOD FLOW 35; ARTERIAL BLOOD GAS HCO3 38.3 mmol/L (21-28); ARTERIAL BLOOD GAS MODE HFNC; ARTERIAL BLOOD GAS O2 CAPACITY 13.1 mL/dL (16-24); ARTERIAL BLOOD GAS O2 CONTENT 12.7 ML/dL (15-23); ARTERIAL BLOOD GAS PH 7.61 (7.35-7.45); ARTERIAL BLOOD GAS PO2 72 mm/Hg (80-100); ARTERIAL BLOOD HGB O2 SAT 94.6 % (95.0-98.0); CARBOXYHEMOGLOBIN 1.9 % (0.5-1.5); HHB 2.7 % (0.0-5.0); METHEMOGLOBIN 0.8 % (0.0-3.0)
--- NOTE | 2016-06-20 10:59 | CP.PCM.PN ---
Subjective - Date & Time of Evaluation Date of Evaluation: 06/20/16 Time of Evaluation: 10:30 - Subjective Subjective: Pt again suddenly deveolped tachypnea and tachycardia, feels very SOB, saturation 98% on High Flow Oxygen at 28% denies CP no fever no abd pain Will need to r/o PE ABG done showed pH 7.6 , pO2: 72, pCo2 40 sat94.5% Objective - Vital Signs/Intake and Output Vital Signs (last 24 hours): Temp Pulse Resp BP Pulse Ox 98.3 F 115 H 19 135/59 L 97 06/20/16 08:00 06/20/16 10:00 06/20/16 10:00 06/20/16 10:00 06/20/16 10:00 Intake and Output: 06/20/16 06/20/16 06:59 18:59 Intake Total 420 800 Output Total 400 800 Balance 20 0 - Medications Medications: Current Medications Acetaminophen (Tylenol 325mg Tab) 650 mg PO Q6 PRN PRN Reason: Pain, moderate (4-7) Last Admin: 06/20/16 06:19 Dose: 650 mg Acetylcysteine (Mucomyst 10% 4ml) 2 ml IH RQID [facility] Last Admin: 06/20/16 07:20 Dose: 2 ml Albuterol Sulfate (Albuterol 0.083% Inhal Aby (2.5 Mg/3 Ml) Ud) 2.5 mg INH RQ4 PRN PRN Reason: Shortness of Breath Last Admin: 06/20/16 03:34 Dose: 2.5 mg Albuterol/Ipratropium (Duoneb 3 Mg/0.5 Mg (3 Ml) Ud) 3 ml INH RQID [facility] Last Admin: 06/20/16 07:20 Dose: 3 ml Anastrozole (Arimidex 1 Mg Tab) 1 mg PO DAILY [facility] Last Admin: 06/20/16 08:27 Dose: 1 mg Aspirin (Ecotrin) 81 mg PO DAILY [facility] Last Admin: 06/20/16 08:35 Dose: 81 mg Baclofen (Lioresal) 10 mg PO HS [facility] Last Admin: 06/19/16 21:13 Dose: 10 mg Capsaicin (Trixaicin Cream) 1 applic TOP BID [facility] Last Admin: 06/20/16 08:40 Dose: 1 applic Enoxaparin Sodium (Lovenox) 40 mg SC DAILY [facility] PRN Reason: Protocol Last Admin: 06/20/16 08:36 Dose: 40 mg Enoxaparin Sodium (Lovenox) 10 mg SC STAT STA PRN Reason: Protocol Stop: 06/20/16 10:58 Furosemide (Lasix) 20 mg IVP DAILY [facility] Gabapentin (Neurontin) 600 mg PO TID [facility] Last Admin: 06/20/16 08:39 Dose: 600 mg Hydrocortisone Sodium Succinate 100 mg/ Sodium Chloride 100 mls @ 100 mls/hr IV Q12 [facility] Last Admin: 06/20/16 08:39 Dose: 100 mls/hr Vancomycin HCl 500 mg/ Sodium (Chloride) 100 mls @ 100 mls/hr IVPB Q12H [facility] Last Admin: 06/20/16 08:41 Dose: 100 mls/hr Meropenem 1 gm/ Sodium (Chloride) 100 mls @ 100 mls/hr IVPB Q12@0800,2000 [facility] Last Admin: 06/20/16 08:37 Dose: 100 mls/hr Lactobacillus Acidophilus (Bacid Acidophilus) 1 cap PO BID [facility] Last Admin: 06/20/16 08:46 Dose: 1 cap Levothyroxine Sodium (Synthroid) 100 mcg PO 0630 [facility] Last Admin: 06/20/16 06:19 Dose: 100 mcg Multi-Ingredient Cream (Hydrocerin Cream) 1 applic TOP BID [facility] Last Admin: 06/20/16 08:35 Dose: 1 applic Multivitamins/Minerals (Therapeutic-M Tab) 1 tab PO DAILY [facility] Last Admin: 06/20/16 08:40 Dose: 1 tab Pantoprazole Sodium (Protonix Ec Tab) 40 mg PO DAILY [facility] Last Admin: 06/20/16 08:39 Dose: 40 mg Potassium Chloride (Potassium Chloride Oral Soln) 20 meq PO DAILY [facility] Last Admin: 06/20/16 08:39 Dose: 20 meq Potassium Chloride (K-Dur 20 Meq Er Tab) 20 meq PO ONCE ONE Stop: 06/20/16 11:01 Senna/Docusate Sodium (Senokot S 50 Mg-8.6 Mg) 1 tab PO HS [facility] Last Admin: 06/11/16 21:19 Dose: 1 tab Spironolactone (Aldactone) 25 mg PO DAILY [facility] Theophylline (Uniphyl) 400 mg PO DAILY [facility] Last Admin: 06/20/16 08:40 Dose: 400 mg Verapamil HCl (Calan Tab) 40 mg PO TID [facility] Last Admin: 06/20/16 08:34 Dose: 40 mg Zolpidem Tartrate (Ambien) 5 mg PO HS PRN PRN Reason: Sleep Last Admin: 06/19/16 21:18 Dose: 5 mg - Labs Labs: 06/20/16 05:30 06/20/16 05:30 PT 11.0 SECONDS (9.6-11.2) 06/09/16 04:10 INR 1.06 (0.92-1.08) 06/09/16 04:10 APTT 27.5 SECONDS (23.3-32.5) 06/03/16 22:33 - Constitutional Appears: Chronically Ill - Head Exam Head Exam: NORMAL INSPECTION, NORMOCEPHALIC - Eye Exam Eye Exam: EOMI, Normal appearance Pupil Exam: NORMAL ACCOMMODATION - ENT Exam ENT Exam: Mucous Membranes Dry, Normal External Ear Exam Additional comments: right facial swelling, markedly decreased , still with some tenderness - Neck Exam Neck Exam: Full ROM. absent: Meningismus - Respiratory Exam Respiratory Exam: tachypneic ,+ Rales, Rhonchi, minimal wheezing on High Flow Oxygen - Cardiovascular Exam Cardiovascular Exam: REGULAR RHYTHM, +S1, +S2 - GI/Abdominal Exam GI & Abdominal Exam: Soft, Normal Bowel Sounds. absent: Tenderness - Extremities Exam Extremities Exam: Normal Capillary Refill, + Pedal Edema Additional comments: abrasions LE - Back Exam Back Exam: absent: CVA tenderness (L), CVA tenderness (R) - Neurological Exam Neurological Exam: Alert, Awake, CN II-XII Intact, Oriented x3 - Psychiatric Exam Psychiatric exam: Normal Affect, Normal Mood - Skin Skin Exam: Dry, Normal Color, Warm Assessment and Plan (1) Acute and chronic respiratory failure with hypercapnia Status: Acute (2) Osteomyelitis of mandible Status: Acute (3) Hypothyroidism Status: Acute (4) Acute exacerbation of chronic obstructive pulmonary disease (COPD) Status: Acute (5) HTN (hypertension) Status: Chronic (6) Hx of breast cancer Status: Chronic (7) Acute exacerbation of CHF (congestive heart failure) Status: Acute (8) Hypokalemia Status: Acute (9) DVT prophylaxis Status: Acute - Assessment and Plan (Free Text) Assessment: 66 y/o female PMH COPD, bilateral breast CA s/p chemo and radiation 8 years ago with bone mets to shoulder (s/p humerus resection), HTN, hyperthyroidism presented with 2 week history of worsening bilateral lower extremity swelling and weakness, unable to get herself up to her walker. Patient has mild dyspnea at baseline. She also noted to have right facial swelling for almost 2 weeks and was taking PO antibiotics prescribed by her dentist. Patient was admitted for generalized weakness , Hyponatremia and facial abscess. She was started on IV Clinda and Zosyn for facial abscess and Lasix IV with fluid restriction for LE edema. At present she is afebrile, Maxillofacial Ct showed possible abscess accumulation and patient had purulent discharge from an opening in oral mucosa. Evaluated by maxillofacial surgeon and underwent Incision and drainage of abscess. At present with no positive cultures. Bone scan showed possible osteomyelitis so she was started on Vancomycin and Zosyn IV (4-6 weeks as per ID recommendations). Has some dyspnea even at rest - started on High Flow Oxygen- transferred to ICU 06/18 bec of resp distress. 1. Acute on Chronic Respiratory Insufficiency with hypercapnea Most likely secondary to COPD excerbation with acute bronchitis and CHF exacerbation CT chest w/o contrast showed small to moderate bilateral pleural effusion IR consulted for possible Thoracentesis however there is not enough fluid seen on US Pt was transferred to ICU bec of episodes of tachypenea and tachycardia - will need to r/o PE CTA pULm to r/o PE Doppler US of RUE and Bilat LE Continue diuresis with Lasix IV- decrease dose of IV Lasix to 20mg bec of hypokalemia , add Aldactone Continue Duonebs, IV Hydrocortisone and Theophylline Cont High Flow O2 35 l/min on FIO2 28 % Continue Chest PT , Coughalator and Acapella therapy 2. Facial abscess with mandibular Osteomyelitis s/p drainage of abscess Patient is afebrile, improving Maxillofacial Ct showed :Large enhancing wall collection seen around the mid and upper right mandibular ramus and mandibular neck extending anteriorly and seen medial and lateral to the right zygomatic arch. This collection contains foci of air. The density and the appearance of this collection suggestive of abscess formation. The collection is seen anterior to the right parotid gland and extending medially to the posterior right oral cavity. [id number] right maxillary sinus mucosal thickening and small air-fluid level. Partial opacification of both mastoids suggestive of mastoiditis. Cont IV Vanco, Zosyn changed to meropenem ID on consult: Dr Obrien. Recommended IV abx 6 wks total ( # Day ) OMFS Dr. Ambrose consulted and patient underwent Incision and drainage on 06/09 All cultures with no growth so far pathology report showed inflammatory cells, no malignancy Nuclear Bone Scan suggestive of osteomyelitis Tunneled central line placed for prison IV antibiotics- this will need to be d/c by IR after IV abx treatment is completed ( as discussed with Dr Gunter - pt was informed of need to see IR after abx tx) 3. Bilateral LE edema sec to CHF exacerbation with diastolic dysfxn Echo showed EF 40-45 % and dilated RV continue fluid restriction , decrease Lasix 20 mg IV daily bec of hypokalemia and add Aldactone CT chest showed bilateral small to moderate pleural effusion Podiatry consulted for dorsum pain and wound consult for LE abrasions 4.Hypokalemia Most likely diuretic induced replete as necessary 5.Hyponatremia, resolved most likely secondary to solute depletion and infection Continue fluid restriction 6.Hx breast ca, bilateral stable, s/p bilateral mastectomy continue arimidex 7.Hypertension on the low side d/c Metoprolol Decreased Verapamil to 40 mg TID 8. Hypothyroidism patient has history of hyperthyroidism and was on Methimazole. Now patient has developed hypothyroidism TSH now down to 13 from 41 Endo consulted - Dr Vu following pt D/c methimazole and started Synthroid - increased dose to 100 mg po QD 9. Anemia, chronic dis monitor anemia work up showed depleted iron stores Venofer IV given 10.DVT ppx lovenox
--- NOTE | 2016-06-20 10:59 | PN ---
DATE: 06/20/2016 ROOM: 423 This is a 66-year-old female with recent acute exacerbation of COPD and supervening congestive heart failure and is now being followed closely for metabolic management. recent hypothyroidism and has been started on levothyroxine replacement therapy, which she is tolerating fairly well at this ti me. Her latest thyroid study showed a of 0.71 with a TSH of 41.10. Her latest chemistry showed a B UN of 14, sodium 140, potassium 3.2, chloride 97, CO2 36, glucose 129 and creatinine 0.4. So at this time, we will continue the levothyroxine given as 100 mcg daily before breakfast as ordere d. We will titrate incrementally as indicated to optimize metabolic control. We will follow and adv ise accordingly. Polly Vu MD cc: [id number] TT: 06/20/2016 10:59:33 Confirmation # [id number] Dictation # [id number]
[2016-06-20] MEDS ORDERED: Potassium Chloride 20 mEq ER Tab PO ONE (11:00)
[2016-06-20] MEDS ORDERED: Enoxaparin 60 mg Syringe SC ONE (11:15)
[2016-06-20] MEDS ORDERED: Sodium Chloride 0.9% 50 ML IV ONE (12:07)
[2016-06-20] MEDS ORDERED: Iodixanol 320 MG/ML 100 ML BOTTLE IV ONE (12:07)
--- NOTE | 2016-06-20 13:09 | CT ---
PROCEDURE: CT Chest with contrast (Pulmonary Angiogram) HISTORY: Resp distress , tachy COMPARISON: None available. TECHNIQUE: Axial computed tomography images were obtained of the chest in the pulmonary arterial phase of enhancement. Coronal and sagittal reformatted images were created and reviewed. Intravenous contrast dose: Radiation dose: Total exam DLP = mGy-cm. FINDINGS: PULMONARY ARTERIES: Unremarkable. No pulmonary embolism. AORTA: No acute findings. No thoracic aortic aneurysm. LUNGS: Severe COPD. No pulmonary consolidation. PLEURAL SPACES: Small bilateral pleural effusions. HEART: Unremarkable. No cardiomegaly. No significant pericardial effusion. LYMPH NODES: No lymphadenopathy. BONES, CHEST WALL: Unremarkable. No fracture or destructive lesion OTHER FINDINGS: Unremarkable. IMPRESSION: Severe COPD. Small bilateral pleural effusions. No pulmonary embolus.
--- NOTE | 2016-06-20 13:36 | US ---
PROCEDURE: Bilateral lower extremity venous duplex Doppler. HISTORY: r/o DVT COMPARISON: None available. TECHNIQUE: Bilateral common femoral, superficial femoral, popliteal and posterior tibial veins were evaluated. Flow was assessed with color Doppler, compressibility, assessment of phasic flow and augmentation response. FINDINGS: COMMON FEMORAL VEIN: Right CFV: Unremarkable. Left CFV: Unremarkable. SUPERFICIAL FEMORAL VEIN: Right SFV: Unremarkable. Left SFV: Unremarkable. POPLITEAL VEIN: Right Popliteal: Unremarkable. Left Popliteal: Unremarkable. POSTERIOR TIBIAL VEIN: Right PTV: Unremarkable. Left PTV: Unremarkable. OTHER FINDINGS: None. IMPRESSION: No evidence of deep venous thrombosis.
--- NOTE | 2016-06-20 15:24 | US ---
PROCEDURE: Right Upper Extremity Venous Doppler HISTORY: r/o dvt COMPARISON: None available. TECHNIQUE: Right upper extremity deep veins, including the lower internal jugular, subclavian, axillary and brachial veins, were evaluated flow, compressibility and respiratory phasicity. FINDINGS: Focal thrombus identified in the right cephalic vein. There is no document oval flow or compression. Approximately in the right subclavian and axillary vessels normal compression flow and phases [place]. Distally, the radial and ulnar veins are not visualized due to edema in the right forearm. IMPRESSION: Focal thrombus in the right cephalic vein. Additional information provided above.
[2016-06-21 05:34] LABS: BASO % 0.2 % (0.0-2.0); HEMATOCRIT 28.5 % (34.0-47.0); LYMPH # 0.6 K/uL (1.0-4.3); LYMPH % 5.5 % (20.0-40.0); MEAN CORPUSCULAR HGB CONC 29.7 g/dL (33.0-37.0); MEAN PLATELET VOLUME 6.8 fl (7.2-11.7); MONO # 0.5 K/uL (0.0-0.8); MONO % 4.5 % (0.0-10.0); NEUT # 9.2 K/uL (1.8-7.0); NEUT % 89.8 % (50.0-75.0); NRBC % 0.6 % (0.0-0.0); PLATELET COUNT 434 K/uL (130-400); RED CELL DISTRIBUTION WIDTH 26.7 % (11.5-14.5); WHITE BLOOD COUNT 10.2 K/uL (4.8-10.8)
[2016-06-21 05:59] LABS: ALKALINE PHOSPHATASE 97 U/L (38-126); ALT/SGPT 15 U/L (9-52); AST/SGOT 29 U/L (14-36); BILIRUBIN,TOTAL 0.3 mg/dl (0.2-1.3); BLOOD UREA NITROGEN 17 mg/dl (7-17); CALCIUM 8.3 mg/dL (8.4-10.2); CHLORIDE 95 mmol/L (98-107); GFR AFRICAN-AMERICAN > 60; GLUCOSE,RANDOM 116 mg/dL (65-105); POTASSIUM 3.1 MMOL/L (3.6-5.0); SODIUM 143 mmol/l (132-148); TOTAL PROTEIN 4.9 G/DL (6.3-8.2)
[2016-06-21 06:06] LABS: T4 9.94 ug/dl (5.5-11.0)
[2016-06-21] MEDS: Levothyroxine 100 MCG TAB PO SCH (06:08)
[2016-06-21 06:19] LABS: THYROID STIMULATING HORMONE 0.49 mIU/ML (0.46-4.68)
[2016-06-21 06:35] LABS: CARBON DIOXIDE 42 mmol/L (22-30)
[2016-06-21] MEDS: Lactobacillus Acidophilus 500 MU Cap PO SCH ×2 (08:33→17:04)
[2016-06-21] MEDS: Multivitamin With Minerals Tab PO SCH (08:36)
[2016-06-21] MEDS: Hydrocortisone- 100 MG in Sodium Chloride 0.9% 100 ML IV SCH ×2 (08:37→17:01)
[2016-06-21] MEDS: Enoxaparin 40 mg Syringe SC SCH (08:40)
[2016-06-21] MEDS: Meropenem 1 GM in Sodium Chloride 0.9% 100 ML IVPB SCH ×2 (08:41→20:00)
[2016-06-21] MEDS: Potassium Chloride 20 mEq/15 ml LIQ UD PO SCH (08:42)
[2016-06-21] MEDS: Pantoprazole 40 mg EC Tab PO SCH (08:42)
[2016-06-21] MEDS: THEOPHYLLINE 400 MG T24(UNIPHYL) PO SCH (08:43)
[2016-06-21] MEDS: Acetylcysteine 10% 4 ML IH SCH ×4 (09:17→19:45)
[2016-06-21] MEDS: Albuterol-Ipratrop 3 mg / 0.5 (3 ml) UD INH SCH ×4 (09:17→19:45)
[2016-06-21 10:02] LABS: MYELOCYTE 2 % (0-0); NEUTROPHIL 93 % (42-75); NUCLEATED RED BLOOD CELL 1 % (0-0); REACTIVE LYMPHOCYTES 1 % (0-0); TOTAL CELLS COUNTED 100
[2016-06-21 10:07] LABS: GIANT PLATELETS PRESENT; PLATELET CLUMPS PRESENT
--- NOTE | 2016-06-21 10:12 | CP.PCM.PN ---
Subjective - Date & Time of Evaluation Date of Evaluation: 06/21/16 Time of Evaluation: 10:09 - Subjective Subjective: Seen on morning rounds in the ICU. She continues to have [place] with simple activity, sometimes at rest. Oxygenation has been good on nasal high flow. CTA yesterday was negative for PE. Pleural effusions have decreased from admission. Severe emphysematous changes are seen on the CT chest. ABG showed adequate O2, compatible with metabolic alkalosis (low K, low Cl). Furosemide has been put on hold. No fever or leukocytosis. Cough assist has been unrewarding. Still has a congested cough, but this seem to be less compared to last week. Breath sounds are present bilaterally with faint scattered high-pitched E wheezes bilaterally. No dullness on chest percussion, no subcutaneous emphysema. Check sudhir level and increase dose to 600MG daily if low. Continue present antibiotic therapy for mandible osteo. Increase IV hydrocortisone. Replace KCL. Maintain high flow nasal O2. Objective - Vital Signs/Intake and Output Vital Signs (last 24 hours): Temp Pulse Resp BP Pulse Ox 98 F 113 H 19 120/70 95 06/21/16 08:00 06/21/16 08:34 06/21/16 09:22 06/21/16 08:34 06/21/16 08:00 Intake and Output: 06/20/16 06/21/16 23:59 11:59 Intake Total 1280 110 Output Total 950 350 Balance 330 -240 - Medications Medications: Current Medications Acetaminophen (Tylenol 325mg Tab) 650 mg PO Q6 PRN PRN Reason: Pain, moderate (4-7) Last Admin: 06/20/16 06:19 Dose: 650 mg Acetylcysteine (Mucomyst 10% 4ml) 2 ml IH RQID [facility] Last Admin: 06/21/16 09:17 Dose: 2 ml Albuterol Sulfate (Albuterol 0.083% Inhal Aby (2.5 Mg/3 Ml) Ud) 2.5 mg INH RQ4 PRN PRN Reason: Shortness of Breath Last Admin: 06/20/16 03:34 Dose: 2.5 mg Albuterol/Ipratropium (Duoneb 3 Mg/0.5 Mg (3 Ml) Ud) 3 ml INH RQID [facility] Last Admin: 06/21/16 09:17 Dose: 3 ml Anastrozole (Arimidex 1 Mg Tab) 1 mg PO DAILY [facility] Last Admin: 06/21/16 08:34 Dose: 1 mg Aspirin (Ecotrin) 81 mg PO DAILY [facility] Last Admin: 06/21/16 08:35 Dose: 81 mg Baclofen (Lioresal) 10 mg PO HS [facility] Last Admin: 06/20/16 22:00 Dose: 10 mg Capsaicin (Trixaicin Cream) 1 applic TOP BID [facility] Last Admin: 06/21/16 08:35 Dose: 1 applic Enoxaparin Sodium (Lovenox) 40 mg SC DAILY [facility] PRN Reason: Protocol Last Admin: 06/21/16 08:40 Dose: 40 mg Furosemide (Lasix) 20 mg IVP DAILY [facility] Gabapentin (Neurontin) 600 mg PO TID [facility] Last Admin: 06/21/16 08:41 Dose: 600 mg Vancomycin HCl 500 mg/ Sodium (Chloride) 100 mls @ 100 mls/hr IVPB Q12H [facility] Last Admin: 06/21/16 09:18 Dose: 100 mls/hr Meropenem 1 gm/ Sodium (Chloride) 100 mls @ 100 mls/hr IVPB Q12@0800,2000 [facility] Last Admin: 06/21/16 08:41 Dose: 100 mls/hr Hydrocortisone Sodium Succinate 100 mg/ Sodium Chloride 100 mls @ 100 mls/hr IV Q8 [facility] Lactobacillus Acidophilus (Bacid Acidophilus) 1 cap PO BID [facility] Last Admin: 06/21/16 08:33 Dose: 1 cap Levothyroxine Sodium (Synthroid) 100 mcg PO 0630 [facility] Last Admin: 06/21/16 06:08 Dose: 100 mcg Multi-Ingredient Cream (Hydrocerin Cream) 1 applic TOP BID [facility] Last Admin: 06/20/16 16:06 Dose: 1 applic Multivitamins/Minerals (Therapeutic-M Tab) 1 tab PO DAILY [facility] Last Admin: 06/21/16 08:36 Dose: 1 tab Pantoprazole Sodium (Protonix Ec Tab) 40 mg PO DAILY [facility] Last Admin: 06/21/16 08:42 Dose: 40 mg Potassium Chloride (Potassium Chloride Oral Soln) 20 meq PO DAILY [facility] Last Admin: 06/21/16 08:42 Dose: 20 meq Senna/Docusate Sodium (Senokot S 50 Mg-8.6 Mg) 1 tab PO [facility] Last Admin: 06/11/16 21:19 Dose: 1 tab Theophylline (Uniphyl) 400 mg PO DAILY [facility] Last Admin: 06/21/16 08:43 Dose: 400 mg Verapamil HCl (Calan Tab) 40 mg PO TID [facility] Last Admin: 06/21/16 08:34 Dose: 40 mg Zolpidem Tartrate (Ambien) 5 mg PO HS PRN PRN Reason: Sleep Last Admin: 06/19/16 21:18 Dose: 5 mg - Labs Labs: 06/21/16 04:30 06/21/16 04:30 PT 11.0 SECONDS (9.6-11.2) 06/09/16 04:10 INR 1.06 (0.92-1.08) 06/09/16 04:10 APTT 27.5 SECONDS (23.3-32.5) 06/03/16 22:33 Assessment and Plan (1) Acute bronchitis with chronic obstructive pulmonary disease (COPD) Status: Acute (2) Hyperthyroidism Status: Chronic (3) Abscess Status: Acute
[2016-06-21] MEDS ORDERED: Potassium Chloride 10 mEq ER Tab PO ONE (12:39)
--- NOTE | 2016-06-21 12:39 | CP.PCM.PN ---
Subjective - Date & Time of Evaluation Date of Evaluation: 06/21/16 Time of Evaluation: 11:00 - Subjective Subjective: Patient was seen and evaluated bedside.Chronically ill appearing female , sitting in bed in no acute distress. Still with dyspnea at rest but more so with minimal activity. Complains of chest congestion and coughing spells, unable to expectorate. On high flow O2 via NC with 35 l/min FIO2 28 % saturating 96 %, tachycardic HR 112-101 , afebrile BP 115/67 RR 22 no acute issues overnight WBC 10 K Hgb 8.5 Na 143 k 3.2 Objective - Vital Signs/Intake and Output Vital Signs (last 24 hours): Temp Pulse Resp BP Pulse Ox 98 F 108 H 22 115/67 98 06/21/16 08:00 06/21/16 10:00 06/21/16 10:00 06/21/16 10:00 06/21/16 10:00 Intake and Output: 06/21/16 06/21/16 06:59 18:59 Intake Total 380 330 Output Total 350 Balance 30 330 - Medications Medications: Current Medications Acetaminophen (Tylenol 325mg Tab) 650 mg PO Q6 PRN PRN Reason: Pain, moderate (4-7) Last Admin: 06/20/16 06:19 Dose: 650 mg Acetylcysteine (Mucomyst 10% 4ml) 2 ml IH RQID [facility] Last Admin: 06/21/16 12:09 Dose: 2 ml Albuterol Sulfate (Albuterol 0.083% Inhal Aby (2.5 Mg/3 Ml) Ud) 2.5 mg INH RQ4 PRN PRN Reason: Shortness of Breath Last Admin: 06/20/16 03:34 Dose: 2.5 mg Albuterol/Ipratropium (Duoneb 3 Mg/0.5 Mg (3 Ml) Ud) 3 ml INH RQID ANDREAS Last Admin: 06/21/16 12:09 Dose: 3 ml Anastrozole (Arimidex 1 Mg Tab) 1 mg PO DAILY [facility] Last Admin: 06/21/16 08:34 Dose: 1 mg Aspirin (Ecotrin) 81 mg PO DAILY [facility] Last Admin: 06/21/16 08:35 Dose: 81 mg Baclofen (Lioresal) 10 mg PO HS [facility] Last Admin: 06/20/16 22:00 Dose: 10 mg Capsaicin (Trixaicin Cream) 1 applic TOP BID [facility] Last Admin: 06/21/16 08:35 Dose: 1 applic Enoxaparin Sodium (Lovenox) 40 mg SC DAILY [facility] PRN Reason: Protocol Last Admin: 06/21/16 08:40 Dose: 40 mg Furosemide (Lasix) 20 mg IVP DAILY [facility] Gabapentin (Neurontin) 600 mg PO TID [facility] Last Admin: 06/21/16 08:41 Dose: 600 mg Vancomycin HCl 500 mg/ Sodium (Chloride) 100 mls @ 100 mls/hr IVPB Q12H [facility] Last Admin: 06/21/16 09:18 Dose: 100 mls/hr Meropenem 1 gm/ Sodium (Chloride) 100 mls @ 100 mls/hr IVPB Q12@0800,2000 [facility] Last Admin: 06/21/16 08:41 Dose: 100 mls/hr Hydrocortisone Sodium Succinate 100 mg/ Sodium Chloride 100 mls @ 100 mls/hr IV Q8 [facility] Lactobacillus Acidophilus (Bacid Acidophilus) 1 cap PO BID [facility] Last Admin: 06/21/16 08:33 Dose: 1 cap Levothyroxine Sodium (Synthroid) 100 mcg PO 0630 [facility] Last Admin: 06/21/16 06:08 Dose: 100 mcg Multi-Ingredient Cream (Hydrocerin Cream) 1 applic TOP BID [facility] Last Admin: 06/20/16 16:06 Dose: 1 applic Multivitamins/Minerals (Therapeutic-M Tab) 1 tab PO DAILY [facility] Last Admin: 06/21/16 08:36 Dose: 1 tab Pantoprazole Sodium (Protonix Ec Tab) 40 mg PO DAILY [facility] Last Admin: 06/21/16 08:42 Dose: 40 mg Potassium Chloride (Potassium Chloride Oral Soln) 20 meq PO DAILY [facility] Last Admin: 06/21/16 08:42 Dose: 20 meq Senna/Docusate Sodium (Senokot S 50 Mg-8.6 Mg) 1 tab PO HS [facility] Last Admin: 06/11/16 21:19 Dose: 1 tab Theophylline (Uniphyl) 400 mg PO DAILY [facility] Last Admin: 06/21/16 08:43 Dose: 400 mg Verapamil HCl (Calan Tab) 40 mg PO TID [facility] Last Admin: 06/21/16 08:34 Dose: 40 mg Zolpidem Tartrate (Ambien) 5 mg PO HS PRN PRN Reason: Sleep Last Admin: 06/19/16 21:18 Dose: 5 mg - Labs Labs: 06/21/16 04:30 06/21/16 04:30 PT 11.0 SECONDS (9.6-11.2) 06/09/16 04:10 INR 1.06 (0.92-1.08) 06/09/16 04:10 APTT 27.5 SECONDS (23.3-32.5) 06/03/16 22:33 - Constitutional Appears: Non-toxic, Chronically Ill - Head Exam Head Exam: ATRAUMATIC, NORMOCEPHALIC Additional comments: right supramandibular region swelling , soft to touch with minimal tenderness , no erythema - Eye Exam Eye Exam: EOMI, PERRL Pupil Exam: NORMAL ACCOMODATION - ENT Exam ENT Exam: Mucous Membranes Moist, Normal Exam - Neck Exam Neck Exam: Full ROM, Normal Inspection - Respiratory Exam Respiratory Exam: Accessory Muscle Use, Prolonged Expiratory Phase, Respiratory Distress. absent: Rhonchi, Wheezes - Cardiovascular Exam Cardiovascular Exam: Tachycardia. absent: JVD - GI/Abdominal Exam GI & Abdominal Exam: Soft, Normal Bowel Sounds. absent: Distended, Guarding, Tenderness, Rebound - Rectal Exam Rectal Exam: Deferred - Extremities Exam Extremities Exam: Pedal Edema (2 +). absent: Tenderness Additional comments: RUE lymphedema , pulses present - Back Exam Back Exam: NORMAL INSPECTION - Neurological Exam Neurological Exam: Alert, Awake, CN II-XII Intact, Oriented x3 - Psychiatric Exam Psychiatric exam: Normal Affect - Skin Skin Exam: Dry, Pallor, Warm Assessment and Plan - Assessment and Plan (Free Text) Assessment: 66 y/o female PMH COPD, bilateral breast CA s/p chemo and radiation 8 years ago with bone mets to shoulder (s/p humerus resection), HTN, hyperthyroidism presented with 2 week history of worsening bilateral lower extremity swelling and weakness, unable to get herself up to her walker. Patient has mild dyspnea at baseline. She also noted to have right facial swelling for almost 2 weeks and was taking PO antibiotics prescribed by her dentist. Patient was admitted for generalized weakness , Hyponatremia and facial abscess. She was started on IV Clinda and Zosyn for facial abscess and Lasix IV with fluid restriction for LE edema. At present she is afebrile, Maxillofacial Ct showed possible abscess accumulation and patient had purulent discharge from an opening in oral mucosa. Evaluated by maxillofacial surgeon and underwent Incision and drainage of abscess. At present with no positive cultures. Bone scan showed possible osteomyelitis so she was started on Vancomycin and Zosyn IV (4-6 weeks as per ID recommendations). During this hospitalization noted to have increased dyspnea at rest and more so with minimal activity, decreased air entry bilaterally and increased work of breathing. She was started on high flow O2 , Higher doses of theophilline and hydrocortisone as per pulmonary. CTA chest and LE doppler showed no DVT. She was transferred to ICU for close monitoring for tachypnea and tachycardia. At present slightly improved but still on high flow O2 . 1. Acute on Chronic Respiratory Insufficiency with hypercapnea Most likely secondary to COPD excerbation with acute bronchitis and CHF exacerbation With some improvement at present . Still on high flow O2 via NC 35 l/min on FIO2 28 % with good oxygenation 96 % CT chest showed no PE and improved bilateral pleural effusion after diuresis LE doppler showed no DVt Continue diuresis PRN Continue Duonebs Cont High Flow O2 35 l/min on FIO2 28 % Continue Chest PT , Coughalator and Acapella therapy pulmonary consult with Dr. Benz appreciated and following closely. Increased Hydrocortisone to 100 mg IV Q8 and Theophilline to 600 mg Po daily 2. Facial abscess with mandibular Osteomyelitis s/p drainage of abscess Patient is afebrile, improving Maxillofacial Ct showed :Large enhancing wall collection seen around the mid and upper right mandibular ramus and mandibular neck extending anteriorly and seen medial and lateral to the right zygomatic arch. This collection contains foci of air. The density and the appearance of this collection suggestive of abscess formation. The collection is seen anterior to the right parotid gland and extending medially to the posterior right oral cavity. [id number] right maxillary sinus mucosal thickening and small air-fluid level. Partial opacification of both mastoids suggestive of mastoiditis. ID on consult: Dr Obrien. Recommended IV abx 6 wks total ( # ) OMFS Dr. Ambrose consulted and patient underwent Incision and drainage on 06/09 All cultures with no growth so far pathology report showed inflammatory cells, no malignancy Nuclear Bone Scan suggestive of osteomyelitis Tunneled central line placed for nursing home IV antibiotics- this will need to be d/c by IR after IV abx treatment is completed ( as discussed with Dr Gunter - pt was informed of need to see IR after abx tx) Cont IV Vanco, Zosyn changed to meropenem 3. Bilateral LE edema sec to CHF exacerbation with diastolic dysfxn Echo showed EF 40-45 % and dilated RV continue fluid restriction ,Lasix 20 mg IV daily and added Aldactone CT chest showed bilateral small to moderate pleural effusion Podiatry consulted for dorsum pain and wound consult for LE abrasions 4.Hypokalemia Most likely diuretic induced replete as necessary 5.Hyponatremia, resolved most likely secondary to solute depletion and infection Continue fluid restriction 6.Hx breast ca, bilateral stable, s/p bilateral mastectomy continue arimidex 7.Hypertension on the low side d/c Metoprolol Decreased Verapamil to 40 mg TID 8. Hypothyroidism patient has history of hyperthyroidism and was on Methimazole. Now patient has developed hypothyroidism TSH now down to 13 from 41 Endo consulted - Dr Vu following pt D/c methimazole and started Synthroid - increased dose to 100 mg po QD 9. Anemia, chronic dis monitor anemia work up showed depleted iron stores Venofer IV given 10.DVT ppx lovenox
[2016-06-21] MEDS ORDERED: Potassium Chloride 20 mEq ER Tab PO ONE (13:15)
[2016-06-21] MEDS: Hydrocerin CREAM TOP SCH ×2 (13:24→17:09)
--- NOTE | 2016-06-21 15:17 | CP.CCUPN ---
CCU Subjective - Physician Review Events Since Last Encounter (Free Text): 06/21/16 17:10 The Patient was seen and examined at the bedside, Medical records reviewed, all clinical/lab/hemodynamic/radiographic data were reviewed and management issues were discussed and formulated, 66 Y/O F with PMHx of HTN, History of Hyperthyroidism (was on Methimazole), Hypothyroidism, severe COPD, Gall Bladder Disease and bilateral breast Cancer with bone mets to shoulder (s/p humerus resection, Humeral prosthesis placement and removal) S/p chemo/XRT 8 years ago Who initially presented to the Emergency department on 06/03 with complaints of bilateral leg swelling and weakness. x2 week. Patient C/O worsening SOB, Initially admitted to Telemetry unit for management of Bilateral LE edema and weakness, likely CHF with diastolic dysfunction, preserved EF and Acute bronchitis with chronic obstructive pulmonary disease (COPD) Also noted with R facial swelling and found to have R mandibular osteomyelitis. 06/18, Patient was transferred from Telemetry unit to ICU for worsening respiratory status, more dyspnea and increased work of breathing despite being started on HFNC at FIO2 of 28% oxygen and 35 LPM flow Patient currently managed with IV Vanco and Meropenem Patient awake today, Comfortable, NAD No CP/SOB, no fever/chills On O2 supplement with High flow at FIO2 of 28% oxygen and 35 LPM flow , no pressors CCU Objective - Vital Signs / Intake & Output Vital Signs (Last 4 hours): Vital Signs Temp Pulse Resp BP Pulse Ox 06/21/16 13:26 125 H 120/80 06/21/16 12:00 98 F 110 H 18 120/80 95 Intake and Output (Last 8hrs): Intake & Output 06/21/16 06/21/16 06/21/16 06:59 14:59 22:59 Intake Total 100 430 Output Total 350 Balance -250 430 Intake: IV 20 10 Intake, Piggyback 300 Oral 80 120 Output: Urine 350 Urine, Voided 350 Other: # Bowel Movements 1 - Physical Exam Head: Positive for: Atraumatic Pupils: Positive for: PERRL Conjunctiva: Positive for: Normal Mouth: Positive for: Moist Mucous Membranes Pharnyx: Positive for: Normal Nose (External): Positive for: Atraumatic Neck: Positive for: Normal Range of Motion Respiratory/Chest: Positive for: Rhonchi Cardiovascular: Positive for: Regular Rate and Rhythm Abdomen: Positive for: Normal Bowel Sounds Upper Extremity: Positive for: Other (Rt arm swelling) Lower Extremity: Positive for: Normal Inspection Neurological: Positive for: GCS=15, Speech Normal Skin: Positive for: Warm, Dry Psychiatric: Positive for: Alert, Oriented x 3 - Medications Active Medications: Active Medications Generic Name Dose Route Start Last Admin Trade Name Freq PRN Reason Stop Dose Admin Acetaminophen 650 mg 06/11/16 21:34 06/20/16 06:19 Tylenol 325mg Tab PO 650 mg Q6 PRN Administration Pain, moderate (4-7) Acetylcysteine 2 ml 06/16/16 16:00 06/21/16 12:09 Mucomyst 10% 4ml IH 2 ml RQID ANDREAS Administration Albuterol Sulfate 2.5 mg 06/07/16 09:55 06/20/16 03:34 Albuterol 0.083% Inhal Aby (2.5 Mg/3 Ml) Ud INH 2.5 mg RQ4 PRN Administration Shortness of Breath Albuterol/Ipratropium 3 ml 06/11/16 12:00 06/21/16 12:09 Duoneb 3 Mg/0.5 Mg (3 Ml) Ud INH 3 ml RQID ANDREAS Administration Anastrozole 1 mg 06/04/16 09:00 06/21/16 08:34 Arimidex 1 Mg Tab PO 1 mg DAILY [facility]RE[facility] Administration Aspirin 81 mg 06/04/16 09:00 06/21/16 08:35 Ecotrin PO 81 mg DAILY ANDRE[facility] Administration Baclofen 10 mg 06/04/16 22:00 06/20/16 22:00 Lioresal PO 10 mg HS ANDREAS Administration Capsaicin 1 applic 06/18/16 17:00 06/21/16 08:35 Trixaicin Cream TOP 1 applic BID ANDREAS Administration Enoxaparin Sodium 40 mg 06/04/16 09:00 06/21/16 08:40 Lovenox SC 40 mg DAILY ANDRE[facility] Administration Protocol Furosemide 20 mg 06/21/16 10:32 Lasix IVP DAILY [facility] Gabapentin 600 mg 06/04/16 09:00 06/21/16 13:30 Neurontin PO 600 mg TID ANDREAS Administration Vancomycin HCl 500 mg/ Sodium 100 mls @ 100 mls/hr 06/16/16 21:00 06/21/16 09: 18 Chloride IVPB 100 mls/hr Q12H [facility]RE[facility] Administration Meropenem 1 gm/ Sodium 100 mls @ 100 mls/hr 06/19/16 08:00 06/21/16 08:41 Chloride IVPB 100 mls/hr Q12@0800,2000 ANDRE[facility] Administration Hydrocortisone Sodium 100 mls @ 100 mls/hr 06/21/16 17:00 Succinate 100 mg/ Sodium IV Chloride Q8 [facility]RE[facility] Lactobacillus Acidophilus 1 cap 06/04/16 17:00 06/21/16 08:33 Bacid Acidophilus PO 1 cap BID [facility]RE[facility] Administration Levothyroxine Sodium 100 mcg 06/12/16 06:30 06/21/16 06:08 Synthroid PO 100 mcg 0630 [facility]RE[facility] Administration Multi-Ingredient Cream 1 applic 06/07/16 10:00 06/21/16 13:24 Hydrocerin Cream TOP Not Given BID [facility] Multivitamins/Minerals 1 tab 06/04/16 09:00 06/21/16 08:36 Therapeutic-M Tab PO 1 tab DAILY [facility] Administration Pantoprazole Sodium 40 mg 06/04/16 09:00 06/21/16 08:42 Protonix Ec Tab PO 40 mg DAILY [facility] Administration Potassium Chloride 20 meq 06/20/16 09:00 06/21/16 08:42 Potassium Chloride Oral Soln PO 20 meq DAILY [facility] Administration Senna/Docusate Sodium 1 tab 06/08/16 22:00 06/11/16 21:19 Senokot S 50 Mg-8.6 Mg PO 1 tab HS [facility]RE[facility] Administration Theophylline 600 mg 06/22/16 09:00 Uniphyl PO DAILY [facility] Verapamil HCl 40 mg 06/11/16 17:00 06/21/16 13:26 Calan Tab PO 40 mg TID ANDRE[facility] Administration Zolpidem Tartrate 5 mg 06/14/16 22:14 06/19/16 21:18 Ambien PO 5 mg HS PRN Administration Sleep - Patient Studies Lab Studies: Microbiology Studies 06/18/16 21:40 MRSA Culture (Admit) - Final Naris MRSA NOT DETECTED Lab Studies 06/21/16 06/21/16 Range/Units 11:00 04:30 WBC 10.2 (4.8-10.8) K/uL RBC 3.85 (3.80-5.20) Mil/uL Hgb 8.5 L (12.0-16.0) g/dL Hct 28.5 L (34.0-47.0) % MCV 74.0 L (81.0-99.0) fl MCH 22.0 L (27.0-31.0) pg MCHC 29.7 L (33.0-37.0) g/dL RDW 26.7 H (11.5-14.5) % Plt Count 434 H (130-400) K/uL MPV 6.8 L (7.2-11.7) fl Neut % (Auto) 89.8 H (50.0-75.0) % Lymph % (Auto) 5.5 L (20.0-40.0) % Isabella % (Auto) 4.5 (0.0-10.0) % Eos % (Auto) 0.0 (0.0-4.0) % Baso % (Auto) 0.2 (0.0-2.0) % Neut # 9.2 H (1.8-7.0) K/uL Lymph # 0.6 L (1.0-4.3) K/uL Isabella # 0.5 (0.0-0.8) K/uL Eos # 0.0 (0.0-0.7) K/uL Baso # 0.0 (0.0-0.2) K/uL Neutrophils % (Manual) 93 H (42-75) % Lymphocytes % (Manual) 2 L (20-50) % Reactive Lymphs % 1 H (0-0) % Monocytes % (Manual) 2 (0-10) % Myelocytes % 2 H (0-0) % Nucleated RBC % 1 H (0-0) % Toxic Granulation Present Platelet Estimate Increased H (NORMAL) Plt Clumps, EDTA Present Giant Platelets Present Hypochromasia (manual) Moderate Poikilocytosis (manual Slight Anisocytosis (manual) Marked Target Cells Slight Tear Drop Cells Slight Ovalocytes Slight Schistocytes Slight Sodium 143 (132-148) mmol/l Potassium 3.1 L (3.6-5.0) MMOL/L Chloride 95 L (98-107) mmol/L Carbon Dioxide 42 H* (22-30) mmol/L Anion Gap 9 L (10-20) BUN 17 (7-17) mg/dl Creatinine 0.4 L (0.7-1.2) mg/dL Est GFR ( Amer) > 60 Est GFR (Non-Af Amer) > 60 Random Glucose 116 H (65-105) mg/dL Calcium 8.3 L (8.4-10.2) mg/dL Total Bilirubin 0.3 (0.2-1.3) mg/dl AST 29 (14-36) U/L ALT 15 (9-52) U/L Alkaline Phosphatase 97 (38-126) U/L Total Protein 4.9 L (6.3-8.2) G/DL Albumin 2.4 L (3.5-5.0) g/dL Globulin 2.5 (2.2-3.9) gm/dL Albumin/Globulin Ratio 1.0 (1.0-2.1) Thyroxine (T4) 9.94 (5.5-11.0) ug/dl TSH 3rd Generation 0.49 (0.46-4.68) mIU/ML Theophylline 9.1 L (10-20) ug/ml Laboratory Results - last 24 hr 06/21/16 06/21/16 04:30 11:00 WBC 10.2 RBC 3.85 Hgb 8.5 L Hct 28.5 L MCV 74.0 L MCH 22.0 L MCHC 29.7 L RDW 26.7 H Plt Count 434 H MPV 6.8 L Neut % (Auto) 89.8 H Lymph % (Auto) 5.5 L Isabella % (Auto) 4.5 Eos % (Auto) 0.0 Baso % (Auto) 0.2 Neut # 9.2 H Lymph # 0.6 L Isabella # 0.5 Eos # 0.0 Baso # 0.0 Neutrophils % (Manual) 93 H Lymphocytes % (Manual) 2 L Reactive Lymphs % 1 H Monocytes % (Manual) 2 Myelocytes % 2 H Nucleated RBC % 1 H Toxic Granulation Present Platelet Estimate Increased H Plt Clumps, EDTA Present Giant Platelets Present Hypochromasia (manual) Moderate Poikilocytosis (manual Slight Anisocytosis (manual) Marked Target Cells Slight Tear Drop Cells Slight Ovalocytes Slight Schistocytes Slight Sodium 143 Potassium 3.1 L Chloride 95 L Carbon Dioxide 42 H* Anion Gap 9 L BUN 17 Creatinine 0.4 L Est GFR ( Amer) > 60 Est GFR (Non-Af Amer) > 60 Random Glucose 116 H Calcium 8.3 L Total Bilirubin 0.3 AST 29 ALT 15 Alkaline Phosphatase 97 Total Protein 4.9 L Albumin 2.4 L Globulin 2.5 Albumin/Globulin Ratio 1.0 Thyroxine (T4) 9.94 TSH 3rd Generation 0.49 Theophylline 9.1 L Critical Care Progress Note - Nutrition Nutrition: Nutrition Category Date Time Status Regular Diet [DIET] Diets 06/11/16 Dinner Active Assessment/Plan (1) Acute and chronic respiratory failure with hypercapnia Current Visit: Yes Status: Acute Comment: Continue Duonebs, HFNC, Theophylline, Diuresis (2) Acute exacerbation of CHF (congestive heart failure) Current Visit: Yes Status: Acute Comment: Echo 06/14: The systolic function is moderately impaired, EF 40-45 % and dilated RV with mild/mod deccrease RV function, diastolic inflow pattern is restrictive Diuresis, strict I&Os, daily Wt (3) Acute bronchitis with chronic obstructive pulmonary disease (COPD) Current Visit: No Status: Acute Priority: High Comment: Continue Duonebs INH RQID ANDREAS, Suplemental O2 Via HFNC Methylprednisone IV 40mg q 24 tapered by Pulm Theophylline Acapella therapy (4) Osteomyelitis of mandible Current Visit: Yes Status: Acute Comment: IV Vanco and Meropenem (5) Hx of breast cancer Current Visit: No Status: Chronic Priority: Low Comment: S/p bilateral mastectomy Continue Arimidex 1mg PO daily
--- NOTE | 2016-06-21 18:58 | PN ---
DATE: 06/21/2016 ROOM: 423. SUBJECTIVE: This is a 66-year-old female with recent overt hypothyroidism presenting here with acute exacerbation of COPD and supervening congestive heart failure. She has improved clinically and meta bolically as noted thereof. Her repeat chemistry showed a BUN of 15, sodium 141, potassium 3.3, chlo ride 97, CO2 42, glucose 121, and creatinine 0.4. Her repeat TSH level is 13.70. So at this time, w e will continue the levothyroxine given at 100 mcg daily as ordered. We will obtain serial chemistri es and supplement accordingly as needed. We will follow. Polly Vu MD cc: [id number] TT: 06/21/2016 18:58:21 Confirmation # [id number] Dictation # [id number] [email or web address]
[2016-06-22] MEDS: Hydrocortisone- 100 MG in Sodium Chloride 0.9% 100 ML IV SCH ×3 (01:00→17:27)
[2016-06-22 04:55] LABS: ABG ALLEN TEST YES; ARTERIAL BLOOD FLOW 30; ARTERIAL BLOOD GAS MODE HIGH FLOW LPM; ARTERIAL BLOOD GAS O2 CAPACITY 11.8 mL/dL (16-24); ARTERIAL BLOOD GAS O2 CONTENT 11.5 ML/dL (15-23); ARTERIAL BLOOD GAS PH 7.55 (7.35-7.45); ARTERIAL BLOOD GAS PO2 75 mm/Hg (80-100); CARBOXYHEMOGLOBIN 1.9 % (0.5-1.5); HHB 2.5 % (0.0-5.0); METHEMOGLOBIN 0.6 % (0.0-3.0)
[2016-06-22 04:59] LABS: HEMATOCRIT 29.5 % (34.0-47.0); MEAN CELL VOLUME 76.2 fl (81.0-99.0); MEAN CORPUSCULAR HEMOGLOBIN 21.6 pg (27.0-31.0); MEAN CORPUSCULAR HGB CONC 28.4 g/dL (33.0-37.0); RED CELL DISTRIBUTION WIDTH 30.8 % (11.5-14.5); WHITE BLOOD COUNT 11.4 K/uL (4.8-10.8)
[2016-06-22 05:17] LABS: BLOOD UREA NITROGEN 22 mg/dl (7-17); CALCIUM 8.2 mg/dL (8.4-10.2); CARBON DIOXIDE 39 mmol/L (22-30); CHLORIDE 97 mmol/L (98-107); GFR AFRICAN-AMERICAN > 60; GLUCOSE,RANDOM 131 mg/dL (65-105); POTASSIUM 3.3 MMOL/L (3.6-5.0); SODIUM 141 mmol/l (132-148)
[2016-06-22] MEDS: Albuterol 0.083% Inhal Sol (2.5 mg/3 mL) UD INH PRN ×2 (06:06→18:21)
[2016-06-22] MEDS: Acetylcysteine 10% 4 ML IH SCH ×2 (07:32→21:32)
[2016-06-22] MEDS: Albuterol-Ipratrop 3 mg / 0.5 (3 ml) UD INH SCH ×4 (07:32→21:32)
[2016-06-22] MEDS: Levothyroxine 100 MCG TAB PO SCH (08:30)
[2016-06-22] MEDS: Lactobacillus Acidophilus 500 MU Cap PO SCH ×2 (08:33→17:22)
[2016-06-22] MEDS: Pantoprazole 40 mg EC Tab PO SCH (08:34)
[2016-06-22] MEDS: Potassium Chloride 20 mEq/15 ml LIQ UD PO SCH (08:34)
[2016-06-22] MEDS: Meropenem 1 GM in Sodium Chloride 0.9% 100 ML IVPB SCH ×2 (08:36→21:03)
[2016-06-22] MEDS: Hydrocerin CREAM TOP SCH (08:46)
[2016-06-22] MEDS: Enoxaparin 40 mg Syringe SC SCH (08:46)
--- NOTE | 2016-06-22 09:13 | CP.PCM.PN ---
Subjective - Date & Time of Evaluation Date of Evaluation: 06/22/16 Time of Evaluation: 09:30 - Subjective Subjective: I have seen and examined patient bedside.Still with dyspnea at rest, accessory muscle use, tachycardic HR 120,unable to expectorate with chest congestion and coughing spells On high flow O2 via NC with 35 l/min FIO2 28 % saturating 98 %, afebrile BP 119 /69 RR 22 No acute issues overnight WBC 11 K Hgb 8.4 Na 141 k 3.3 ABG 45/75/37/7.55 Objective - Vital Signs/Intake and Output Vital Signs (last 24 hours): Temp Pulse Resp BP Pulse Ox 98.2 F 122 H 28 H 129/75 99 06/22/16 08:00 06/22/16 08:47 06/22/16 08:00 06/22/16 08:47 06/22/16 08:00 Intake and Output: 06/22/16 06/22/16 06:59 18:59 Intake Total 560 Output Total 450 Balance 110 - Medications Medications: Current Medications Acetaminophen (Tylenol 325mg Tab) 650 mg PO Q6 PRN PRN Reason: Pain, moderate (4-7) Last Admin: 06/22/16 02:48 Dose: 650 mg Acetylcysteine (Mucomyst 10% 4ml) 2 ml IH RBID [facility] Albuterol Sulfate (Albuterol 0.083% Inhal Aby (2.5 Mg/3 Ml) Ud) 2.5 mg INH RQ4 PRN PRN Reason: Shortness of Breath Last Admin: 06/22/16 06:06 Dose: 2.5 mg Albuterol/Ipratropium (Duoneb 3 Mg/0.5 Mg (3 Ml) Ud) 3 ml INH RQID [facility] Last Admin: 06/22/16 07:32 Dose: 3 ml Anastrozole (Arimidex 1 Mg Tab) 1 mg PO DAILY [facility] Last Admin: 06/22/16 08:32 Dose: 1 mg Aspirin (Ecotrin) 81 mg PO DAILY [facility] Last Admin: 06/22/16 08:34 Dose: 81 mg Baclofen (Lioresal) 10 mg PO HS [facility] Last Admin: 06/21/16 21:36 Dose: 10 mg Capsaicin (Trixaicin Cream) 1 applic TOP BID [facility] Last Admin: 06/22/16 08:44 Dose: 1 applic Enoxaparin Sodium (Lovenox) 40 mg SC DAILY [facility] PRN Reason: Protocol Last Admin: 06/22/16 08:46 Dose: 40 mg Furosemide (Lasix) 20 mg IVP DAILY [facility] Gabapentin (Neurontin) 600 mg PO TID [facility] Last Admin: 06/22/16 08:46 Dose: 600 mg Vancomycin HCl 500 mg/ Sodium (Chloride) 100 mls @ 100 mls/hr IVPB Q12H [facility] Last Admin: 06/22/16 08:35 Dose: 100 mls/hr Meropenem 1 gm/ Sodium (Chloride) 100 mls @ 100 mls/hr IVPB Q12@0800,2000 [facility] Last Admin: 06/22/16 08:36 Dose: 100 mls/hr Hydrocortisone Sodium Succinate 100 mg/ Sodium Chloride 100 mls @ 100 mls/hr IV Q8 [facility] Last Admin: 06/22/16 08:34 Dose: 100 mls/hr Lactobacillus Acidophilus (Bacid Acidophilus) 1 cap PO BID [facility] Last Admin: 06/22/16 08:33 Dose: 1 cap Levothyroxine Sodium (Synthroid) 100 mcg PO 0630 [facility] Last Admin: 06/22/16 08:30 Dose: 100 mcg Multi-Ingredient Cream (Hydrocerin Cream) 1 applic TOP BID [facility] Last Admin: 06/22/16 08:46 Dose: Not Given Multivitamins/Minerals (Therapeutic-M Tab) 1 tab PO DAILY [facility] Last Admin: 06/21/16 08:36 Dose: 1 tab Pantoprazole Sodium (Protonix Ec Tab) 40 mg PO DAILY [facility] Last Admin: 06/22/16 08:34 Dose: 40 mg Potassium Chloride (Potassium Chloride Oral Soln) 20 meq PO DAILY [facility] Last Admin: 06/22/16 08:34 Dose: 20 meq Senna/Docusate Sodium (Senokot S 50 Mg-8.6 Mg) 1 tab PO HS [facility] Last Admin: 06/11/16 21:19 Dose: 1 tab Theophylline (Uniphyl) 600 mg PO DAILY [facility] Verapamil HCl (Calan Tab) 40 mg PO TID [facility] Last Admin: 06/22/16 08:47 Dose: 40 mg Zolpidem Tartrate (Ambien) 5 mg PO HS PRN PRN Reason: Sleep Last Admin: 06/19/16 21:18 Dose: 5 mg - Labs Labs: 06/22/16 04:10 06/22/16 04:10 PT 11.0 SECONDS (9.6-11.2) 06/09/16 04:10 INR 1.06 (0.92-1.08) 06/09/16 04:10 APTT 27.5 SECONDS (23.3-32.5) 06/03/16 22:33 - Constitutional Appears: Chronically Ill, Other (with dyspnea at rest) - Head Exam Head Exam: ATRAUMATIC Additional comments: right mandibular swelling - Eye Exam Eye Exam: EOMI, Normal appearance, PERRL Pupil Exam: NORMAL ACCOMODATION - ENT Exam ENT Exam: Mucous Membranes Moist, Normal Exam - Neck Exam Neck Exam: Normal Inspection - Respiratory Exam Respiratory Exam: Accessory Muscle Use, Decreased Breath Sounds (bibasilar ), Prolonged Expiratory Phase, Rhonchi, Respiratory Distress. absent: Wheezes - Cardiovascular Exam Cardiovascular Exam: Tachycardia. absent: JVD - GI/Abdominal Exam GI & Abdominal Exam: Soft, Normal Bowel Sounds. absent: Distended, Guarding, Tenderness, Rebound - Rectal Exam Rectal Exam: Deferred - Extremities Exam Extremities Exam: Normal Capillary Refill, Pedal Edema (2 +) Additional comments: RUE lymphedema - Neurological Exam Neurological Exam: Alert, Awake, CN II-XII Intact, Oriented x3 - Psychiatric Exam Psychiatric exam: Normal Affect - Skin Skin Exam: Dry, Pallor, Warm Assessment and Plan - Assessment and Plan (Free Text) Assessment: 66 y/o female PMH COPD, bilateral breast CA s/p chemo and radiation 8 years ago with bone mets to shoulder (s/p humerus resection), HTN, hyperthyroidism presented with 2 week history of worsening bilateral lower extremity swelling and weakness, unable to get herself up to her walker. Patient has mild dyspnea at baseline. She also noted to have right facial swelling for almost 2 weeks and was taking PO antibiotics prescribed by her dentist. Patient was admitted for generalized weakness , Hyponatremia and facial abscess. She was started on IV Clinda and Zosyn for facial abscess and Lasix IV with fluid restriction for LE edema. At present she is afebrile, Maxillofacial Ct showed possible abscess accumulation and patient had purulent discharge from an opening in oral mucosa. Evaluated by maxillofacial surgeon and underwent Incision and drainage of abscess. At present with no positive cultures. Bone scan showed possible osteomyelitis so she was started on Vancomycin and Zosyn IV (4-6 weeks as per ID recommendations). During this hospitalization noted to have increased dyspnea at rest and more so with minimal activity, decreased air entry bilaterally and increased work of breathing. She was started on high flow O2 , Higher doses of theophilline and hydrocortisone as per pulmonary. CTA chest and LE doppler showed no DVT. She was transferred to ICU for close monitoring for tachypnea and tachycardia. At present on high flow O2, still with dyspnea at rest . 1. Acute on Chronic Respiratory Insufficiency with hypercapnea Most likely secondary to COPD excerbation with acute bronchitis and CHF exacerbation Still on high flow O2 via NC 35 l/min on FIO2 28 % with good oxygenation 96 %, ABG 45/75/37/7.55 With dyspnea at rest and accessory muscle use CT chest showed no PE and improved bilateral pleural effusion after diuresis LE doppler showed no DVtT Resume lasix today Continue Duonebs Cont High Flow O2 35 l/min on FIO2 28 % Continue Chest PT , Coughalator and Acapella therapy pulmonary consult with Dr. Benz appreciated and following closely. Increased Hydrocortisone to 100 mg IV Q8 and Theophilline to 600 mg Po daily 2. Facial abscess with mandibular Osteomyelitis s/p drainage of abscess Patient is afebrile, improving Maxillofacial Ct showed :Large enhancing wall collection seen around the mid and upper right mandibular ramus and mandibular neck extending anteriorly and seen medial and lateral to the right zygomatic arch. This collection contains foci of air. The density and the appearance of this collection suggestive of abscess formation. The collection is seen anterior to the right parotid gland and extending medially to the posterior right oral cavity. [id number] right maxillary sinus mucosal thickening and small air-fluid level. Partial opacification of both mastoids suggestive of mastoiditis. ID on consult: Dr Obrien. Recommended IV abx 6 wks total ( # Day ) OMFS Dr. Ambrose consulted and patient underwent Incision and drainage on 06/09 All cultures with no growth so far pathology report showed inflammatory cells, no malignancy Nuclear Bone Scan suggestive of osteomyelitis Tunneled central line placed for intermediate IV antibiotics- this will need to be d/c by IR after IV abx treatment is completed ( as discussed with Dr Gunter - pt was informed of need to see IR after abx tx) Cont IV Vanco, Zosyn changed to meropenem 3. Bilateral LE edema sec to CHF exacerbation with diastolic dysfxn Echo showed EF 40-45 % and dilated RV continue fluid restriction ,Lasix 20 mg IV daily and added Aldactone CT chest showed bilateral small to moderate pleural effusion Podiatry consulted for dorsum pain and wound consult for LE abrasions 4.Hypokalemia Most likely diuretic induced replete as necessary 5.Hyponatremia, resolved most likely secondary to solute depletion and infection Continue fluid restriction 6.Hx breast ca, bilateral stable, s/p bilateral mastectomy continue arimidex 7.Hypertension on the low side d/c Metoprolol Decreased Verapamil to 40 mg TID 8. Hypothyroidism patient has history of hyperthyroidism and was on Methimazole. Now patient has developed hypothyroidism TSH now down to 13 from 41 Endo consulted - Dr Vu following pt D/c methimazole and started Synthroid - increased dose to 100 mg po QD 9. Anemia, chronic dis monitor anemia work up showed depleted iron stores Venofer IV given 10.DVT ppx lovenox
--- NOTE | 2016-06-22 09:16 | CP.PCM.PN ---
Subjective - Date & Time of Evaluation Date of Evaluation: 06/22/16 Time of Evaluation: 09:14 - Subjective Subjective: Seen on morning rounds in the ICU with the resident. Patient claims to finally feel slight improvement. Cough is still non-productive, but is noticeably stronger. Cough also appears to be less congested. Breath sounjds are present bilaterally with sonorous rhonchi in lower lobes. No audible wheezes heard, no bronchial breathing or egophony. No dullness to chest percussion. Trace dependant edema, no cyanosis. Discussed with hematology, will have transfusion of PRBC's. Continue present medical regimen. High flow reduced to 30LPM and maintained 28%. Objective - Vital Signs/Intake and Output Vital Signs (last 24 hours): Temp Pulse Resp BP Pulse Ox 98.2 F 122 H 28 H 129/75 99 06/22/16 08:00 06/22/16 08:47 06/22/16 08:00 06/22/16 08:47 06/22/16 08:00 Intake and Output: 06/21/16 06/22/16 23:59 11:59 Intake Total 650 150 Output Total 300 450 Balance 350 -300 - Medications Medications: Current Medications Acetaminophen (Tylenol 325mg Tab) 650 mg PO Q6 PRN PRN Reason: Pain, moderate (4-7) Last Admin: 06/22/16 02:48 Dose: 650 mg Acetylcysteine (Mucomyst 10% 4ml) 2 ml IH RBID [facility] Albuterol Sulfate (Albuterol 0.083% Inhal Aby (2.5 Mg/3 Ml) Ud) 2.5 mg INH RQ4 PRN PRN Reason: Shortness of Breath Last Admin: 06/22/16 06:06 Dose: 2.5 mg Albuterol/Ipratropium (Duoneb 3 Mg/0.5 Mg (3 Ml) Ud) 3 ml INH RQID [facility] Last Admin: 06/22/16 07:32 Dose: 3 ml Anastrozole (Arimidex 1 Mg Tab) 1 mg PO DAILY [facility] Last Admin: 06/22/16 08:32 Dose: 1 mg Aspirin (Ecotrin) 81 mg PO DAILY [facility] Last Admin: 06/22/16 08:34 Dose: 81 mg Baclofen (Lioresal) 10 mg PO HS [facility] Last Admin: 06/21/16 21:36 Dose: 10 mg Capsaicin (Trixaicin Cream) 1 applic TOP BID [facility] Last Admin: 06/22/16 08:44 Dose: 1 applic Enoxaparin Sodium (Lovenox) 40 mg SC DAILY [facility] PRN Reason: Protocol Last Admin: 06/22/16 08:46 Dose: 40 mg Furosemide (Lasix) 20 mg IVP DAILY [facility] Gabapentin (Neurontin) 600 mg PO TID [facility] Last Admin: 06/22/16 08:46 Dose: 600 mg Vancomycin HCl 500 mg/ Sodium (Chloride) 100 mls @ 100 mls/hr IVPB Q12H [facility] Last Admin: 06/22/16 08:35 Dose: 100 mls/hr Meropenem 1 gm/ Sodium (Chloride) 100 mls @ 100 mls/hr IVPB Q12@0800,2000 [facility] Last Admin: 06/22/16 08:36 Dose: 100 mls/hr Hydrocortisone Sodium Succinate 100 mg/ Sodium Chloride 100 mls @ 100 mls/hr IV Q8 [facility] Last Admin: 06/22/16 08:34 Dose: 100 mls/hr Lactobacillus Acidophilus (Bacid Acidophilus) 1 cap PO BID [facility] Last Admin: 06/22/16 08:33 Dose: 1 cap Levothyroxine Sodium (Synthroid) 100 mcg PO 0630 [facility] Last Admin: 06/22/16 08:30 Dose: 100 mcg Multi-Ingredient Cream (Hydrocerin Cream) 1 applic TOP BID [facility] Last Admin: 06/22/16 08:46 Dose: Not Given Multivitamins/Minerals (Therapeutic-M Tab) 1 tab PO DAILY [facility] Last Admin: 06/21/16 08:36 Dose: 1 tab Pantoprazole Sodium (Protonix Ec Tab) 40 mg PO DAILY [facility] Last Admin: 06/22/16 08:34 Dose: 40 mg Potassium Chloride (Potassium Chloride Oral Soln) 20 meq PO DAILY [facility] Last Admin: 06/22/16 08:34 Dose: 20 meq Senna/Docusate Sodium (Senokot S 50 Mg-8.6 Mg) 1 tab PO HS [facility] Last Admin: 06/11/16 21:19 Dose: 1 tab Theophylline (Uniphyl) 600 mg PO DAILY [facility] Verapamil HCl (Calan Tab) 40 mg PO TID [facility] Last Admin: 06/22/16 08:47 Dose: 40 mg Zolpidem Tartrate (Ambien) 5 mg PO HS PRN PRN Reason: Sleep Last Admin: 06/19/16 21:18 Dose: 5 mg - Labs Labs: 06/22/16 04:10 06/22/16 04:10 PT 11.0 SECONDS (9.6-11.2) 06/09/16 04:10 INR 1.06 (0.92-1.08) 06/09/16 04:10 APTT 27.5 SECONDS (23.3-32.5) 06/03/16 22:33 Assessment and Plan (1) Acute bronchitis with chronic obstructive pulmonary disease (COPD) Status: Acute (2) Hyperthyroidism Status: Chronic (3) Abscess Status: Acute
--- NOTE | 2016-06-22 11:07 | CP.PCM.CON ---
History of Present Illness - History of Present Illness History of Present Illness: This is a66 yrs old female well known to be because of a breast cancer she had several yrs ago. She received chemotherapy. A few yrs later she had severe pain in her right shoulder, and was found to have a necrosis of the acromial process. She had surgery but developed a osteomyelitis in the joint after that, The device was removed and she has been stable after that. She however has COPD for a long time, and this time was admitted for exacerbation of the same . she seemed to doing well,but yesterday got more hypoxic and was transferred to the ICU. She also has an, abscess on the right mandible.and is now osteomyelitis, Her cbc had shown mild leukocytosisand and thrombocytosis, but the Hgb has gradually trended down. HGb today is 8.5gms. Past Patient History - Infectious Disease Hx of Infectious Diseases: MRSA - Tetanus Immunizations Tetanus Immunization: Unknown - Past Medical History & Family History Past Medical History?: Yes - Past Social History Smoking Status: Current Some Days Smoker Chewing Tobacco Use: No Cigar Use: No Alcohol: Social Drugs: Denies - CARDIAC Hx Cardiac Disorders: Yes Hx Hypertension: Yes - PULMONARY Hx Respiratory Disorders: Yes Hx Asthma: Yes Hx Chronic Obstructive Pulmonary Disease (COPD): Yes Hx Pneumonia: Yes - NEUROLOGICAL Hx Neurological Disorder: Yes Other/Comment: peripheral neuropathy right lower extremity. - HEENT Hx HEENT Problems: Yes Other/Comment: recent right buccal abscess with possible involvement of the mandible - RENAL Hx Chronic Kidney Disease: No - ENDOCRINE/METABOLIC Hx Endocrine Disorders: Yes Hx Hyperthyroidism: Yes (on methimazole) - HEMATOLOGICAL/ONCOLOGICAL Hx Blood Disorders: Yes Hx Bruising: Yes Hx Human Immunodeficiency Virus (HIV): No - INTEGUMENTARY Hx Dermatological Problems: No - MUSCULOSKELETAL/RHEUMATOLOGICAL Hx Musculoskeletal Disorders: Yes (Multiple fractures) Hx Falls: Yes Hx Osteoporosis: Yes - GASTROINTESTINAL Hx Gastrointestinal Disorders: Yes Hx Gall Bladder Disease: Yes - GENITOURINARY/GYNECOLOGICAL Hx Genitourinary Disorders: No - PSYCHIATRIC Hx Psychophysiologic Disorder: No Hx Substance Use: No - SURGICAL HISTORY Hx Surgeries: Yes Hx Mastectomy: Yes (right in 1998; left in 2008) Hx Orthopedic Surgery: Yes (2003 rigtht shoulder prosthesis, removal of hardware 2013) Hx Tubal Ligation: Yes Other/Comment: shoulder and humerous replacement with joint space infection and eventual removal of hardware in right shoulder and chronic lymphedema of RUE, groin cyst removal, cervical spinal fusion 2007, lumbar spinal fusion 2007. - ANESTHESIA Hx Anesthesia: Yes Hx Anesthesia Reactions: No Hx Malignant Hyperthermia: No Meds Allergies/Adverse Reactions: Allergies Allergy/AdvReac Type Severity Reaction Status Date / Time paper tape Allergy RASH Uncoded 06/03/16 21:31 - Medications Medications: Current Medications Acetaminophen (Tylenol 325mg Tab) 650 mg PO Q6 PRN PRN Reason: Pain, moderate (4-7) Last Admin: 06/22/16 10:29 Dose: 650 mg Acetylcysteine (Mucomyst 10% 4ml) 2 ml IH RBID [facility] Albuterol Sulfate (Albuterol 0.083% Inhal Aby (2.5 Mg/3 Ml) Ud) 2.5 mg INH RQ4 PRN PRN Reason: Shortness of Breath Last Admin: 06/22/16 06:06 Dose: 2.5 mg Albuterol/Ipratropium (Duoneb 3 Mg/0.5 Mg (3 Ml) Ud) 3 ml INH RQID [facility] Last Admin: 06/22/16 07:32 Dose: 3 ml Anastrozole (Arimidex 1 Mg Tab) 1 mg PO DAILY [facility] Last Admin: 06/22/16 08:32 Dose: 1 mg Aspirin (Ecotrin) 81 mg PO DAILY [facility] Last Admin: 06/22/16 08:34 Dose: 81 mg Baclofen (Lioresal) 10 mg PO HS [facility] Last Admin: 06/21/16 21:36 Dose: 10 mg Capsaicin (Trixaicin Cream) 1 applic TOP BID [facility] Last Admin: 06/22/16 08:44 Dose: 1 applic Enoxaparin Sodium (Lovenox) 40 mg SC DAILY [facility] PRN Reason: Protocol Last Admin: 06/22/16 08:46 Dose: 40 mg Furosemide (Lasix) 20 mg IVP DAILY [facility] Gabapentin (Neurontin) 600 mg PO TID [facility] Last Admin: 06/22/16 08:46 Dose: 600 mg Vancomycin HCl 500 mg/ Sodium (Chloride) 100 mls @ 100 mls/hr IVPB Q12H [facility] Last Admin: 06/22/16 08:35 Dose: 100 mls/hr Meropenem 1 gm/ Sodium (Chloride) 100 mls @ 100 mls/hr IVPB Q12@0800,2000 [facility] Last Admin: 06/22/16 08:36 Dose: 100 mls/hr Hydrocortisone Sodium Succinate 100 mg/ Sodium Chloride 100 mls @ 100 mls/hr IV Q8 [facility] Last Admin: 06/22/16 08:34 Dose: 100 mls/hr Lactobacillus Acidophilus (Bacid Acidophilus) 1 cap PO BID [facility] Last Admin: 06/22/16 08:33 Dose: 1 cap Levothyroxine Sodium (Synthroid) 100 mcg PO 0630 [facility] Last Admin: 06/22/16 08:30 Dose: 100 mcg Multi-Ingredient Cream (Hydrocerin Cream) 1 applic TOP BID [facility] Last Admin: 06/22/16 08:46 Dose: Not Given Multivitamins/Minerals (Therapeutic-M Tab) 1 tab PO DAILY [facility] Last Admin: 06/21/16 08:36 Dose: 1 tab Pantoprazole Sodium (Protonix Ec Tab) 40 mg PO DAILY [facility] Last Admin: 06/22/16 08:34 Dose: 40 mg Potassium Chloride (Potassium Chloride Oral Soln) 20 meq PO DAILY [facility] Last Admin: 06/22/16 08:34 Dose: 20 meq Senna/Docusate Sodium (Senokot S 50 Mg-8.6 Mg) 1 tab PO HS [facility] Last Admin: 06/11/16 21:19 Dose: 1 tab Theophylline (Uniphyl) 600 mg PO DAILY [facility] Verapamil HCl (Calan Tab) 40 mg PO TID [facility] Last Admin: 06/22/16 08:47 Dose: 40 mg Zolpidem Tartrate (Ambien) 5 mg PO HS PRN PRN Reason: Sleep Last Admin: 06/19/16 21:18 Dose: 5 mg Physical Exam - Additional Findings Additional findings: Physical exam; Alert, well oriented, in some respiratory distress neck; Supple, no adenopathy Chest; Air entry decreased bilaterally, with scattered rales Heart; RSR, no murmur Abd; soft, no mass, no h/s megaly Results - Vital Signs Recent Vital Signs: Last Vital Signs Temp 98.2 F 06/22/16 08:00 Pulse 119 H 06/22/16 10:29 Resp 26 H 06/22/16 10:29 BP 122/64 06/22/16 10:29 Pulse Ox 93 L 06/22/16 10:29 - Labs Result Diagrams: 06/22/16 04:10 06/22/16 04:10 Labs: Laboratory Results - last 24 hr 06/21/16 06/22/16 06/22/16 11:00 04:10 04:38 WBC 11.4 H RBC 3.87 Hgb 8.4 L Hct 29.5 L MCV 76.2 L D MCH 21.6 L MCHC 28.4 L RDW 30.8 H Plt Count 419 H pCO2 45 pO2 75 L HCO3 37.0 H ABG pH 7.55 H ABG Total CO2 40.8 H ABG O2 Saturation 97.4 ABG O2 Content 11.5 L ABG Base Excess 15.5 H ABG Hemoglobin 8.5 L ABG Carboxyhemoglobin 1.9 H POC ABG HHb (Measured) 2.5 ABG Methemoglobin 0.6 ABG O2 Capacity 11.8 L Tawanda Test Yes A-a O2 Difference 68.0 Hgb O2 Saturation 95.0 Liter Flow 30 Vent Mode High flow lpm FiO2 28.0 Blood Gas Notified Time 456 Sodium 141 Potassium 3.3 L Chloride 97 L Carbon Dioxide 39 H Anion Gap 8 L BUN 22 H Creatinine 0.4 L Est GFR ( Amer) > 60 Est GFR (Non-Af Amer) > 60 Random Glucose 131 H Calcium 8.2 L Theophylline 9.1 L Assessment & Plan - Assessment and Plan (Free Text) Assessment: IMP; Anemia secondary to chronic illness COPD Osteomyelitis right mandible. Plan: Plan; Will transfuse 2 units of packed cells today.
--- NOTE | 2016-06-22 13:41 | CP.CCUPN ---
CCU Subjective - Physician Review Events Since Last Encounter (Free Text): 06/22/16 13:46 The Patient was seen and examined at the bedside, Medical records reviewed, all clinical/lab/hemodynamic/radiographic data were reviewed and management issues were discussed and formulated, 66 Y/O F with PMHx of HTN, History of Hyperthyroidism (was on Methimazole), Hypothyroidism, severe COPD, Gall Bladder Disease and bilateral breast Cancer with bone mets to shoulder (s/p humerus resection, Humeral prosthesis placement and removal) S/p chemo/XRT 8 years ago Who initially presented to the Emergency department on 06/03 with complaints of bilateral leg swelling and weakness. x2 week. 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 06/18, Patient was transferred from Telemetry unit to ICU for close monitoring due to worsening respiratory status, more dyspnea and increased work of breathing despite being started on HFNC at FIO2 of 28% oxygen and 35 LPM flow Patient currently managed with Diuresis, IV Vanco and Meropenem Patient awake today, Comfortable, NAD No CP/SOB, no fever/chills On O2 supplement with High flow at FIO2 of 28% oxygen and 35 LPM flow Off BIPAP , no pressors Afebrile, Scheduled for 2U Packed TBC transfusion CCU Objective - Vital Signs / Intake & Output Vital Signs (Last 4 hours): Vital Signs Temp Pulse Resp BP Pulse Ox 06/22/16 13:03 121 H 125/71 06/22/16 12:57 119/92 H 06/22/16 12:00 97.6 F 123 H 23 119/92 H 98 06/22/16 11:11 16 06/22/16 10:29 119 H 26 H 122/64 93 L Intake and Output (Last 8hrs): Intake & Output 06/21/16 06/22/16 06/22/16 22:59 06:59 14:59 Intake Total 550 150 Output Total 300 450 Balance 250 -300 Intake: IV 270 0 Intake, Piggyback 100 50 Oral 120 100 Tube Feeding 60 Output: Urine 300 450 Urethral (Gutierrez) 450 Urine, Voided 300 Other: # Bowel Movements 1 2 - Physical Exam Head: Positive for: Atraumatic Pupils: Positive for: PERRL Conjunctiva: Positive for: Normal Mouth: Positive for: Moist Mucous Membranes Pharnyx: Positive for: Normal Nose (External): Positive for: Atraumatic Neck: Positive for: Normal Range of Motion Respiratory/Chest: Positive for: Rhonchi Cardiovascular: Positive for: Regular Rate and Rhythm Abdomen: Positive for: Normal Bowel Sounds Upper Extremity: Positive for: Normal Inspection, NORMAL PULSES, Capillary Refill < 2s, Other (Rt arm swelling). Negative for: Cyanosis, Edema, Tenderness Lower Extremity: Positive for: Edema, NORMAL PULSES. Negative for: CALF TENDERNESS Neurological: Positive for: GCS=15, Speech Normal Skin: Positive for: Warm, Dry Psychiatric: Positive for: Alert, Oriented x 3 - Medications Active Medications: Active Medications Generic Name Dose Route Start Last Admin Trade Name Freq PRN Reason Stop Dose Admin Acetaminophen 650 mg 06/11/16 21:34 06/22/16 10:29 Tylenol 325mg Tab PO 650 mg Q6 PRN Administration Pain, moderate (4-7) Acetylcysteine 2 ml 06/22/16 20:00 Mucomyst 10% 4ml IH RBID ANDREAS Albuterol Sulfate 2.5 mg 06/07/16 09:55 06/22/16 06:06 Albuterol 0.083% Inhal Aby (2.5 Mg/3 Ml) Ud INH 2.5 mg RQ4 PRN Administration Shortness of Breath Albuterol/Ipratropium 3 ml 06/11/16 12:00 06/22/16 11:07 Duoneb 3 Mg/0.5 Mg (3 Ml) Ud INH 3 ml RQID ANDREAS Administration Anastrozole 1 mg 06/04/16 09:00 06/22/16 08:32 Arimidex 1 Mg Tab PO 1 mg DAILY ANDREAS Administration Aspirin 81 mg 06/04/16 09:00 06/22/16 08:34 Ecotrin PO 81 mg DAILY ANDREAS Administration Baclofen 10 mg 06/04/16 22:00 06/21/16 21:36 Lioresal PO 10 mg HS ANDREAS Administration Capsaicin 1 applic 06/18/16 17:00 06/22/16 08:44 Trixaicin Cream TOP 1 applic BID ANDREAS Administration Enoxaparin Sodium 40 mg 06/04/16 09:00 06/22/16 08:46 Lovenox SC 40 mg DAILY ANDREAS Administration Protocol Furosemide 20 mg 06/21/16 10:32 06/22/16 12:57 Lasix IVP 20 mg DAILY ANDREAS Administration Gabapentin 600 mg 06/04/16 09:00 06/22/16 08:46 Neurontin PO 600 mg TID ANDREAS Administration Vancomycin HCl 500 mg/ Sodium 100 mls @ 100 mls/hr 06/16/16 21:00 06/22/16 08: 35 Chloride IVPB 100 mls/hr Q12H ANDREAS Administration Meropenem 1 gm/ Sodium 100 mls @ 100 mls/hr 06/19/16 08:00 06/22/16 08:36 Chloride IVPB 100 mls/hr Q12@0800,2000 ANDRE[facility] Administration Hydrocortisone Sodium 100 mls @ 100 mls/hr 06/21/16 17:00 06/22/16 08:34 Succinate 100 mg/ Sodium IV 100 mls/hr Chloride Q8 ANDREAS Administration Lactobacillus Acidophilus 1 cap 06/04/16 17:00 06/22/16 08:33 Bacid Acidophilus PO 1 cap BID ANDREAS Administration Levothyroxine Sodium 100 mcg 06/12/16 06:30 06/22/16 08:30 Synthroid PO 100 mcg 0630 ANDREAS Administration Loperamide HCl 2 mg 06/22/16 13:09 Imodium PO QID PRN Diarrhea Multi-Ingredient Cream 1 applic 06/07/16 10:00 06/22/16 08:46 Hydrocerin Cream TOP Not Given BID [facility] Multivitamins/Minerals 1 tab 06/04/16 09:00 06/21/16 08:36 Therapeutic-M Tab PO 1 tab DAILY ANDREAS Administration Pantoprazole Sodium 40 mg 06/04/16 09:00 06/22/16 08:34 Protonix Ec Tab PO 40 mg DAILY ANDREAS Administration Potassium Chloride 20 meq 06/20/16 09:00 06/22/16 08:34 Potassium Chloride Oral Soln PO 20 meq DAILY [facility] Administration Senna/Docusate Sodium 1 tab 06/08/16 22:00 06/11/16 21:19 Senokot S 50 Mg-8.6 Mg PO 1 tab HS ANDREAS Administration Theophylline 600 mg 06/22/16 09:00 Uniphyl PO DAILY [facility]RE[facility] Verapamil HCl 40 mg 06/11/16 17:00 06/22/16 13:03 Calan Tab PO 40 mg TID ANDREAS Administration Zolpidem Tartrate 5 mg 06/14/16 22:14 06/19/16 21:18 Ambien PO 5 mg HS PRN Administration Sleep - Patient Studies Lab Studies: Lab Studies 06/22/16 06/22/16 06/22/16 Range/Units 13:00 04:38 04:10 WBC 11.4 H (4.8-10.8) K/uL RBC 3.87 (3.80-5.20) Mil/uL Hgb 8.4 L (12.0-16.0) g/dL Hct 29.5 L (34.0-47.0) % MCV 76.2 L D (81.0-99.0) fl MCH 21.6 L (27.0-31.0) pg MCHC 28.4 L (33.0-37.0) g/dL RDW 30.8 H (11.5-14.5) % Plt Count 419 H (130-400) K/uL pCO2 45 (35-45) mm/Hg pO2 75 L (80-100) mm/Hg HCO3 37.0 H (21-28) mmol/L ABG pH 7.55 H (7.35-7.45) ABG Total CO2 40.8 H (22-28) mmol/L ABG O2 Saturation 97.4 (95-98) % ABG O2 Content 11.5 L (15-23) ML/dL ABG Base Excess 15.5 H (-2.0-3.0) mmol/L ABG Hemoglobin 8.5 L (11.7-17.4) g/dL ABG Carboxyhemoglobin 1.9 H (0.5-1.5) % POC ABG HHb (Measured) 2.5 (0.0-5.0) % ABG Methemoglobin 0.6 (0.0-3.0) % ABG O2 Capacity 11.8 L (16-24) mL/dL Tawanda Test Yes A-a O2 Difference 68.0 mm/Hg Hgb O2 Saturation 95.0 (95.0-98.0) % Liter Flow 30 Vent Mode High flow lpm FiO2 28.0 % Blood Gas Notified Time 456 Sodium 141 (132-148) mmol/l Potassium 3.3 L (3.6-5.0) MMOL/L Chloride 97 L (98-107) mmol/L Carbon Dioxide 39 H (22-30) mmol/L Anion Gap 8 L (10-20) BUN 22 H (7-17) mg/dl Creatinine 0.4 L (0.7-1.2) mg/dL Est GFR ( Amer) > 60 Est GFR (Non-Af Amer) > 60 Random Glucose 131 H (65-105) mg/dL Calcium 8.2 L (8.4-10.2) mg/dL BBK History Checked Patient has bt Laboratory Results - last 24 hr 06/22/16 06/22/16 06/22/16 04:10 04:38 13:00 WBC 11.4 H RBC 3.87 Hgb 8.4 L Hct 29.5 L MCV 76.2 L D MCH 21.6 L MCHC 28.4 L RDW 30.8 H Plt Count 419 H pCO2 45 pO2 75 L HCO3 37.0 H ABG pH 7.55 H ABG Total CO2 40.8 H ABG O2 Saturation 97.4 ABG O2 Content 11.5 L ABG Base Excess 15.5 H ABG Hemoglobin 8.5 L ABG Carboxyhemoglobin 1.9 H POC ABG HHb (Measured) 2.5 ABG Methemoglobin 0.6 ABG O2 Capacity 11.8 L Tawanda Test Yes A-a O2 Difference 68.0 Hgb O2 Saturation 95.0 Liter Flow 30 Vent Mode High flow lpm FiO2 28.0 Blood Gas Notified Time 456 Sodium 141 Potassium 3.3 L Chloride 97 L Carbon Dioxide 39 H Anion Gap 8 L BUN 22 H Creatinine 0.4 L Est GFR ( Amer) > 60 Est GFR (Non-Af Amer) > 60 Random Glucose 131 H Calcium 8.2 L BBK History Checked Patient has bt Review of Systems - Cardiovascular Cardiovascular: absent: Chest Pain, Chest Pain at Rest, Chest Pain with Activity , Diaphoresis - Respiratory Respiratory: Dyspnea on Exertion. absent: Hemoptysis, Wheezing Critical Care Progress Note - Nutrition Nutrition: Nutrition Category Date Time Status Regular Diet [DIET] Diets 06/11/16 Dinner Active Assessment/Plan (1) Acute and chronic respiratory failure with hypercapnia Current Visit: Yes Status: Acute Comment: Continue Duonebs, HFNC, Theophylline, Diuresis (2) Acute exacerbation of CHF (congestive heart failure) Current Visit: Yes Status: Acute Comment: Echo 06/14: The systolic function is moderately impaired, EF 40-45 % and dilated RV with mild/mod deccrease RV function, diastolic inflow pattern is restrictive Diuresis, strict I&Os, daily Wt (3) Acute bronchitis with chronic obstructive pulmonary disease (COPD) Current Visit: No Status: Acute Priority: High Comment: Continue Duonebs INH RQID ANDREAS, Suplemental O2 Via HFNC Methylprednisone IV 40mg q 24 tapered by Pulm Theophylline Acapella therapy (4) Osteomyelitis of mandible Current Visit: Yes Status: Acute Comment: IV Vanco and Meropenem (5) Hx of breast cancer Current Visit: No Status: Chronic Priority: Low Comment: S/p bilateral mastectomy Continue Arimidex 1mg PO daily
[2016-06-22] MEDS: Multivitamin With Minerals Tab PO SCH (17:27)
[2016-06-22] MEDS: THEOPHYLLINE 400 MG T24(UNIPHYL) PO SCH (17:28)
--- NOTE | 2016-06-22 18:08 | PN ---
DATE: 06/22/2016 SUBJECTIVE: The patient is seen in room 434. The patient is a 65-year-old female with recent acute exacerbation of COPD and currently on IV steroid therapy with supervening congestive heart failure an d is now being followed closely for hemodynamic monitoring and also from the endocrine viewpoint for metabolic management. LABORATORY DATA: Her latest chemistries include a BUN of 22, sodium 141, potassium 3.3, chloride 97, CO2 39, glucose 131, and creatinine 0.4. The repeat thyroid study showed a T4 of 9.94 with a TSH of 0.49. PLAN: So at this time, we will lower the levothyroxine to 50 mcg once daily before breakfast as orde red. We will repeat the thyroid studies and adjust her dose accordingly to optimize metabolic contro l. We will obtain serial chemistries and supplement accordingly as needed. We will follow. Polly Vu MD cc: [id number] TT: 06/22/2016 18:08:00 Confirmation # [id number] Dictation # [id number]
[2016-06-23] MEDS: Hydrocortisone- 100 MG in Sodium Chloride 0.9% 100 ML IV SCH ×3 (01:09→16:30)
[2016-06-23] MEDS: Levothyroxine 50 MCG TAB PO SCH (05:30)
[2016-06-23 05:36] LABS: HEMATOCRIT 38.1 % (34.0-47.0); MEAN CELL VOLUME 79.7 fl (81.0-99.0); MEAN CORPUSCULAR HEMOGLOBIN 23.7 pg (27.0-31.0); MEAN CORPUSCULAR HGB CONC 29.7 g/dL (33.0-37.0); WHITE BLOOD COUNT 10.2 K/uL (4.8-10.8)
[2016-06-23 05:47] LABS: BLOOD UREA NITROGEN 20 mg/dl (7-17); CALCIUM 7.9 mg/dL (8.4-10.2); CARBON DIOXIDE 37 mmol/L (22-30); CHLORIDE 98 mmol/L (98-107); GFR AFRICAN-AMERICAN > 60; GLUCOSE,RANDOM 108 mg/dL (65-105); SODIUM 144 mmol/l (132-148)
[2016-06-23 05:50] LABS: POTASSIUM 2.5 MMOL/L (3.6-5.0)
[2016-06-23] MEDS ORDERED: Potassium Chloride 20 mEq ER Tab PO ONE (05:55)
[2016-06-23] MEDS: Potassium CL 10 MEQ/50 ML 50 ML IVPB SCH ×8 (06:17→21:38)
--- NOTE | 2016-06-23 08:28 | CP.PCM.PN ---
Subjective - Date & Time of Evaluation Date of Evaluation: 06/23/16 Time of Evaluation: 08:30 - Subjective Subjective: I have seen and examined patient bedside.All pertinent lab/ radiographic and hemodynamic data reviewed. Chief complaint dyspnea BP 138/86 saturating 100 % on high flow 35 LPM FIO2 28 5, afebrile tachycardic 113 No acute issues overnight Received 2 unit PRBC transfusion overnight with Hgb 11 this morning Still with dyspnea even at rest and coughing spells but unable to expectorate Objective - Vital Signs/Intake and Output Vital Signs (last 24 hours): Temp Pulse Resp BP Pulse Ox 98.1 F 114 H 20 136/86 98 06/23/16 08:00 06/23/16 08:00 06/23/16 08:00 06/23/16 08:00 06/23/16 08:00 Intake and Output: 06/23/16 06/23/16 06:59 18:59 Intake Total 680 Output Total 1000 Balance -320 - Medications Medications: Current Medications Acetaminophen (Tylenol 325mg Tab) 650 mg PO Q6 PRN PRN Reason: Pain, moderate (4-7) Last Admin: 06/22/16 10:29 Dose: 650 mg Acetylcysteine (Mucomyst 10% 4ml) 2 ml IH RBID [facility] Last Admin: 06/22/16 21:32 Dose: 2 ml Albuterol Sulfate (Albuterol 0.083% Inhal Aby (2.5 Mg/3 Ml) Ud) 2.5 mg INH RQ4 PRN PRN Reason: Shortness of Breath Last Admin: 06/22/16 18:21 Dose: 2.5 mg Albuterol/Ipratropium (Duoneb 3 Mg/0.5 Mg (3 Ml) Ud) 3 ml INH RQID [facility] Last Admin: 06/22/16 21:32 Dose: 3 ml Anastrozole (Arimidex 1 Mg Tab) 1 mg PO DAILY [facility] Last Admin: 06/22/16 08:32 Dose: 1 mg Aspirin (Ecotrin) 81 mg PO DAILY [facility] Last Admin: 06/22/16 08:34 Dose: 81 mg Baclofen (Lioresal) 10 mg PO HS [facility] Last Admin: 06/22/16 21:08 Dose: 10 mg Capsaicin (Trixaicin Cream) 1 applic TOP BID [facility] Last Admin: 02/14/17 17:48 Dose: 1 applic Enoxaparin Sodium (Lovenox) 40 mg SC DAILY [facility] PRN Reason: Protocol Last Admin: 06/22/16 08:46 Dose: 40 mg Furosemide (Lasix) 20 mg IVP DAILY [facility] Last Admin: 06/22/16 12:57 Dose: 20 mg Gabapentin (Neurontin) 600 mg PO TID [facility] Last Admin: 06/22/16 17:22 Dose: 600 mg Vancomycin HCl 500 mg/ Sodium (Chloride) 100 mls @ 100 mls/hr IVPB Q12H [facility] Last Admin: 06/22/16 21:04 Dose: 100 mls/hr Meropenem 1 gm/ Sodium (Chloride) 100 mls @ 100 mls/hr IVPB Q12@0800,2000 [facility] Last Admin: 06/22/16 21:03 Dose: 100 mls/hr Hydrocortisone Sodium Succinate 100 mg/ Sodium Chloride 100 mls @ 100 mls/hr IV Q8 [facility] Last Admin: 06/23/16 01:09 Dose: 100 mls/hr Potassium Chloride (Potassium Cl 10meq/50ml Sterile Water) 50 mls @ 50 mls/hr IVPB Q1 [facility] Stop: 06/23/16 09:59 Last Admin: 06/23/16 06:17 Dose: 50 mls/hr Lactobacillus Acidophilus (Bacid Acidophilus) 1 cap PO BID [facility] Last Admin: 06/22/16 17:22 Dose: 1 cap Levothyroxine Sodium (Synthroid) 50 mcg PO 0630 [facility] Last Admin: 06/23/16 05:30 Dose: 50 mcg Loperamide HCl (Imodium) 2 mg PO QID PRN PRN Reason: Diarrhea Last Admin: 06/22/16 13:40 Dose: 2 mg Multi-Ingredient Cream (Hydrocerin Cream) 1 applic TOP BID [facility] Last Admin: 06/22/16 08:46 Dose: Not Given Multivitamins/Minerals (Therapeutic-M Tab) 1 tab PO DAILY [facility] Last Admin: 06/22/16 17:27 Dose: 1 tab Pantoprazole Sodium (Protonix Ec Tab) 40 mg PO DAILY [facility] Last Admin: 06/22/16 08:34 Dose: 40 mg Potassium Chloride (Potassium Chloride Oral Soln) 20 meq PO DAILY [facility] Last Admin: 06/22/16 08:34 Dose: 20 meq Senna/Docusate Sodium (Senokot S 50 Mg-8.6 Mg) 1 tab PO HS [facility] Last Admin: 06/11/16 21:19 Dose: 1 tab Theophylline (Uniphyl) 600 mg PO DAILY [facility] Last Admin: 06/22/16 17:28 Dose: 600 mg Verapamil HCl (Calan Tab) 40 mg PO TID [facility] Last Admin: 06/22/16 17:22 Dose: 40 mg Zolpidem Tartrate (Ambien) 5 mg PO HS PRN PRN Reason: Sleep Last Admin: 06/22/16 21:10 Dose: 5 mg - Labs Labs: 06/23/16 05:15 06/23/16 05:15 PT 11.0 SECONDS (9.6-11.2) 06/09/16 04:10 INR 1.06 (0.92-1.08) 06/09/16 04:10 APTT 27.5 SECONDS (23.3-32.5) 06/03/16 22:33 - Constitutional Appears: Chronically Ill, Other (on high flow O2 via NC with dyspnea at rest ) - Head Exam Head Exam: ATRAUMATIC, NORMOCEPHALIC - Eye Exam Eye Exam: EOMI, Normal appearance, PERRL Pupil Exam: NORMAL ACCOMODATION - ENT Exam ENT Exam: Mucous Membranes Moist, Normal Exam - Neck Exam Neck Exam: Full ROM, Normal Inspection - Respiratory Exam Respiratory Exam: Accessory Muscle Use, Decreased Breath Sounds (bilateral ), Prolonged Expiratory Phase. absent: Wheezes - Cardiovascular Exam Cardiovascular Exam: Tachycardia. absent: JVD - GI/Abdominal Exam GI & Abdominal Exam: Soft, Normal Bowel Sounds. absent: Distended, Guarding, Tenderness, Rebound - Rectal Exam Rectal Exam: Deferred - Extremities Exam Extremities Exam: Pedal Edema (2 + to RLE and 1 + to LLE, RUE lyphedema) Additional comments: pulses present - Back Exam Back Exam: NORMAL INSPECTION - Neurological Exam Neurological Exam: Alert, Awake, CN II-XII Intact, Oriented x3 - Psychiatric Exam Psychiatric exam: Normal Affect - Skin Skin Exam: Dry, Pallor, Warm Assessment and Plan - Assessment and Plan (Free Text) Assessment: 66 y/o female PMH COPD, bilateral breast CA s/p chemo and radiation 8 years ago with bone mets to shoulder (s/p humerus resection), HTN, hyperthyroidism presented with 2 week history of worsening bilateral lower extremity swelling and weakness, unable to get herself up to her walker. Patient has mild dyspnea at baseline. She also noted to have right facial swelling for almost 2 weeks and was taking PO antibiotics prescribed by her dentist. Patient was admitted for generalized weakness , Hyponatremia and facial abscess. She was started on IV Clinda and Zosyn for facial abscess and Lasix IV with fluid restriction for LE edema. At present she is afebrile, Maxillofacial Ct showed possible abscess accumulation and patient had purulent discharge from an opening in oral mucosa. Evaluated by maxillofacial surgeon and underwent Incision and drainage of abscess. At present with no positive cultures. Bone scan showed possible osteomyelitis so she was started on Vancomycin and Zosyn IV and now on Vanco and Meropenem (4-6 weeks as per ID recommendations). During this hospitalization noted to have increased dyspnea at rest and more so with minimal activity, decreased air entry bilaterally and increased work of breathing. She was started on high flow O2,Higher doses of theophilline and hydrocortisone as per pulmonary.CTA chest and LE doppler showed no DVT. She was transferred to ICU for close monitoring for tachypnea and tachycardia. At present on high flow O2, still with dyspnea at rest . 1.Acute on Chronic Respiratory Insufficiency with hypercapnea Most likely secondary to COPD exacerbation with acute bronchitis and CHF exacerbation Still on high flow O2 via NC 35 l/min on FIO2 28 % with good oxygenation 96-100 % Still with dyspnea at rest and accessory muscle use .Will try to place on O2 vi aNc and start ambulation OOB to chair CT chest showed no PE and improved bilateral pleural effusion after diuresis LE doppler showed no DVT Continue lasix and aldactone Continue Duonebs Continue Chest PT , Coughalator and Acapella therapy pulmonary consult with Dr. Benz appreciated and following closely. On Hydrocortisone to 100 mg IV Q8 and Theophilline to 600 mg Po daily 2. Facial abscess with mandibular Osteomyelitis s/p drainage of abscess Patient is afebrile, improving Maxillofacial Ct showed :Large enhancing wall collection seen around the mid and upper right mandibular ramus and mandibular neck extending anteriorly and seen medial and lateral to the right zygomatic arch. This collection contains foci of air. The density and the appearance of this collection suggestive of abscess formation. The collection is seen anterior to the right parotid gland and extending medially to the posterior right oral cavity. [id number] right maxillary sinus mucosal thickening and small air-fluid level. Partial opacification of both mastoids suggestive of mastoiditis. ID on consult: Dr Obrien. Recommended IV abx 6 wks total ( # Day ) OMFS Dr. Ambrose consulted and patient underwent Incision and drainage on 06/09 All cultures with no growth so far pathology report showed inflammatory cells, no malignancy Nuclear Bone Scan suggestive of osteomyelitis Tunneled central line placed for long-term IV antibiotics- this will need to be d/c by IR after IV abx treatment is completed ( as discussed with Dr Gunter - pt was informed of need to see IR after abx tx) Cont IV Vanco, Zosyn changed to meropenem 3. Bilateral LE edema sec to CHF exacerbation with diastolic dysfxn Echo showed EF 40-45 % and dilated RV continue fluid restriction Will give lasix 40 mg today and Aldactone K 2.5. replace with Kcl 40MEQ CT chest showed bilateral small to moderate pleural effusion that improved after diuresis Podiatry consulted for dorsum pain and wound consult for LE abrasions 4.Hypokalemia K 2.5 today Most likely diuretic induced replete with Kcl 40 MEQ today 5.Hyponatremia, resolved most likely secondary to solute depletion and infection Continue fluid restriction 6.Hx breast ca, bilateral stable, s/p bilateral mastectomy continue arimidex 7.Hypertension on the low side d/c Metoprolol Decreased Verapamil to 40 mg TID 8. Hypothyroidism patient has history of hyperthyroidism and was on Methimazole. Now patient has developed hypothyroidism TSH now down to 13 from 41 Endo consulted - Dr Vu following pt D/c methimazole and started Synthroid - increased dose to 100 mg po QD 9. Anemia, chronic dis monitor anemia work up showed depleted iron stores Venofer IV given s/p 2 uit PRVBC transfusion yesterday with Hgb post transfusion 11 10.DVT ppx lovenox
[2016-06-23] MEDS: Albuterol-Ipratrop 3 mg / 0.5 (3 ml) UD INH SCH ×4 (08:31→20:52)
[2016-06-23] MEDS: Acetylcysteine 10% 4 ML IH SCH ×2 (08:31→20:52)
--- NOTE | 2016-06-23 08:42 | CP.PCM.PN ---
Subjective - Date & Time of Evaluation Date of Evaluation: 06/23/16 Time of Evaluation: 08:38 - Subjective Subjective: Appears stronger after having transfused PRBC's. Cough is stronger, productive of a small quantity of tenacious mucoid sputum. Breath sounds are a little better as well with no audible wheezes heard. Few sonorous rhonchi remain in the lower lobes bilaterally. There seems to be a little more swelling of the right buccal abscess. Her vital signs remain stable and she continues to be a little tachycardic. Trace pedal edema still present without any cyanosis. Objective - Vital Signs/Intake and Output Vital Signs (last 24 hours): Temp Pulse Resp BP Pulse Ox 98.1 F 114 H 22 136/86 98 06/23/16 08:00 06/23/16 08:00 06/23/16 08:32 06/23/16 08:00 06/23/16 08:00 Intake and Output: 06/22/16 06/23/16 23:59 11:59 Intake Total 1727 100 Output Total 1300 1000 Balance 427 -900 - Medications Medications: Current Medications Acetaminophen (Tylenol 325mg Tab) 650 mg PO Q6 PRN PRN Reason: Pain, moderate (4-7) Last Admin: 06/22/16 10:29 Dose: 650 mg Acetylcysteine (Mucomyst 10% 4ml) 2 ml IH RBID [facility] Last Admin: 06/23/16 08:31 Dose: 2 ml Albuterol Sulfate (Albuterol 0.083% Inhal Aby (2.5 Mg/3 Ml) Ud) 2.5 mg INH RQ4 PRN PRN Reason: Shortness of Breath Last Admin: 06/22/16 18:21 Dose: 2.5 mg Albuterol/Ipratropium (Duoneb 3 Mg/0.5 Mg (3 Ml) Ud) 3 ml INH RQID [facility] Last Admin: 06/23/16 08:31 Dose: 3 ml Anastrozole (Arimidex 1 Mg Tab) 1 mg PO DAILY [facility] Last Admin: 06/22/16 08:32 Dose: 1 mg Aspirin (Ecotrin) 81 mg PO DAILY [facility] Last Admin: 06/22/16 08:34 Dose: 81 mg Baclofen (Lioresal) 10 mg PO HS [facility] Last Admin: 06/22/16 21:08 Dose: 10 mg Capsaicin (Trixaicin Cream) 1 applic TOP BID [facility] Last Admin: 06/22/16 17:48 Dose: 1 applic Enoxaparin Sodium (Lovenox) 40 mg SC DAILY [facility] PRN Reason: Protocol Last Admin: 06/22/16 08:46 Dose: 40 mg Furosemide (Lasix) 20 mg IVP DAILY [facility] Last Admin: 06/22/16 12:57 Dose: 20 mg Gabapentin (Neurontin) 600 mg PO TID [facility] Last Admin: 06/22/16 17:22 Dose: 600 mg Vancomycin HCl 500 mg/ Sodium (Chloride) 100 mls @ 100 mls/hr IVPB Q12H [facility] Last Admin: 06/22/16 21:04 Dose: 100 mls/hr Meropenem 1 gm/ Sodium (Chloride) 100 mls @ 100 mls/hr IVPB Q12@0800,2000 [facility] Last Admin: 06/22/16 21:03 Dose: 100 mls/hr Hydrocortisone Sodium Succinate 100 mg/ Sodium Chloride 100 mls @ 100 mls/hr IV Q8 [facility] Last Admin: 06/23/16 01:09 Dose: 100 mls/hr Potassium Chloride (Potassium Cl 10meq/50ml Sterile Water) 50 mls @ 50 mls/hr IVPB Q1 [facility] Stop: 06/23/16 09:59 Last Admin: 06/23/16 06:17 Dose: 50 mls/hr Lactobacillus Acidophilus (Bacid Acidophilus) 1 cap PO BID [facility] Last Admin: 06/22/16 17:22 Dose: 1 cap Levothyroxine Sodium (Synthroid) 50 mcg PO 0630 [facility] Last Admin: 06/23/16 05:30 Dose: 50 mcg Loperamide HCl (Imodium) 2 mg PO QID PRN PRN Reason: Diarrhea Last Admin: 06/22/16 13:40 Dose: 2 mg Multi-Ingredient Cream (Hydrocerin Cream) 1 applic TOP BID [facility] Last Admin: 06/22/16 08:46 Dose: Not Given Multivitamins/Minerals (Therapeutic-M Tab) 1 tab PO DAILY [facility] Last Admin: 06/22/16 17:27 Dose: 1 tab Pantoprazole Sodium (Protonix Ec Tab) 40 mg PO DAILY [facility] Last Admin: 06/22/16 08:34 Dose: 40 mg Potassium Chloride (Potassium Chloride Oral Soln) 20 meq PO DAILY [facility] Last Admin: 06/22/16 08:34 Dose: 20 meq Senna/Docusate Sodium (Senokot S 50 Mg-8.6 Mg) 1 tab PO HS [facility] Last Admin: 06/11/16 21:19 Dose: 1 tab Theophylline (Uniphyl) 600 mg PO DAILY [facility] Last Admin: 06/22/16 17:28 Dose: 600 mg Verapamil HCl (Calan Tab) 40 mg PO TID [facility] Last Admin: 06/22/16 17:22 Dose: 40 mg Zolpidem Tartrate (Ambien) 5 mg PO HS PRN PRN Reason: Sleep Last Admin: 06/22/16 21:10 Dose: 5 mg - Labs Labs: 06/23/16 05:15 06/23/16 05:15 PT 11.0 SECONDS (9.6-11.2) 06/09/16 04:10 INR 1.06 (0.92-1.08) 06/09/16 04:10 APTT 27.5 SECONDS (23.3-32.5) 06/03/16 22:33 Assessment and Plan (1) Acute bronchitis with chronic obstructive pulmonary disease (COPD) Status: Acute (2) Hyperthyroidism Status: Chronic (3) Abscess Status: Acute
[2016-06-23] MEDS: Lactobacillus Acidophilus 500 MU Cap PO SCH ×2 (09:49→18:48)
[2016-06-23] MEDS: Hydrocerin CREAM TOP SCH ×2 (09:51→16:30)
[2016-06-23] MEDS: Meropenem 1 GM in Sodium Chloride 0.9% 100 ML IVPB SCH ×2 (09:52→20:35)
[2016-06-23] MEDS: Multivitamin With Minerals Tab PO SCH (09:54)
[2016-06-23] MEDS: THEOPHYLLINE 400 MG T24(UNIPHYL) PO SCH (09:54)
[2016-06-23] MEDS: Enoxaparin 40 mg Syringe SC SCH (09:56)
[2016-06-23] MEDS: Pantoprazole 40 mg EC Tab PO SCH (09:56)
[2016-06-23] MEDS: Potassium Chloride 20 mEq/15 ml LIQ UD PO SCH (10:14)
--- NOTE | 2016-06-23 10:46 | PN ---
DATE: 06/23/2016 ICU, room 434. This is a 66-year-old female with acute exacerbation of COPD and currently is still on IV steroid the rapy as given and is also being followed closely for metabolic management. Her glycemic levels are s lightly elevated as expected from the intercurrent IV steroid therapy and increased insulin resistanc e thereof. Her latest thyroid study showed a T4 of 9.94 with a TSH of 0.49. Her latest chemistry showed a BUN o f 20, sodium 144, potassium 2.5, chloride 98, CO2 37, glucose 108 and creatinine 0.3. So at this time, we will continue the modified levothyroxine given as 50 mcg once daily in the mornin g as ordered. We will titrate incrementally as indicated to optimize metabolic control. We will fol low. Polly Vu MD cc: [id number] TT: 06/23/2016 10:46:04 Confirmation # [id number] Dictation # [id number]
[2016-06-23 12:29] LABS: BLOOD UREA NITROGEN 20 mg/dl (7-17); CALCIUM 7.9 mg/dL (8.4-10.2); CARBON DIOXIDE 38 mmol/L (22-30); CHLORIDE 95 mmol/L (98-107); GFR AFRICAN-AMERICAN > 60; GLUCOSE,RANDOM 140 mg/dL (65-105); POTASSIUM 2.9 MMOL/L (3.6-5.0); SODIUM 142 mmol/l (132-148)
--- NOTE | 2016-06-23 12:34 | CP.PCM.PN ---
Subjective - Date & Time of Evaluation Date of Evaluation: 06/23/16 Time of Evaluation: 12:34 - Subjective Subjective: Pt is awake and alert. She was tried to be off the high flow, but she became hypoxic and had to go back to high flow O2. She is better now. Her post transfusion cbc showed a hgb of 11.4gms. Will monitor cbc Objective - Vital Signs/Intake and Output Vital Signs (last 24 hours): Temp Pulse Resp BP Pulse Ox 98.8 F 124 H 28 H 134/75 95 06/23/16 10:00 06/23/16 10:46 06/23/16 12:30 06/23/16 10:46 06/23/16 10:00 Intake and Output: 06/23/16 06/23/16 06:59 18:59 Intake Total 680 300 Output Total 1000 Balance -320 300 - Medications Medications: Current Medications Acetaminophen (Tylenol 325mg Tab) 650 mg PO Q6 PRN PRN Reason: Pain, moderate (4-7) Last Admin: 06/22/16 10:29 Dose: 650 mg Acetylcysteine (Mucomyst 10% 4ml) 2 ml IH RBID [facility] Last Admin: 06/23/16 08:31 Dose: 2 ml Albuterol Sulfate (Albuterol 0.083% Inhal Aby (2.5 Mg/3 Ml) Ud) 2.5 mg INH RQ4 PRN PRN Reason: Shortness of Breath Last Admin: 06/22/16 18:21 Dose: 2.5 mg Albuterol/Ipratropium (Duoneb 3 Mg/0.5 Mg (3 Ml) Ud) 3 ml INH RQID [facility] Last Admin: 06/23/16 12:28 Dose: 3 ml Anastrozole (Arimidex 1 Mg Tab) 1 mg PO DAILY [facility] Last Admin: 06/23/16 09:49 Dose: 1 mg Aspirin (Ecotrin) 81 mg PO DAILY [facility] Last Admin: 06/23/16 09:50 Dose: 81 mg Baclofen (Lioresal) 10 mg PO HS [facility] Last Admin: 06/22/16 21:08 Dose: 10 mg Capsaicin (Trixaicin Cream) 1 applic TOP BID [facility] Last Admin: 06/23/16 09:58 Dose: 1 applic Enoxaparin Sodium (Lovenox) 40 mg SC DAILY [facility] PRN Reason: Protocol Last Admin: 06/23/16 09:56 Dose: 40 mg Furosemide (Lasix) 20 mg IVP DAILY [facility] Last Admin: 06/22/16 12:57 Dose: 20 mg Gabapentin (Neurontin) 600 mg PO TID [facility] Last Admin: 06/23/16 09:53 Dose: 600 mg Vancomycin HCl 500 mg/ Sodium (Chloride) 100 mls @ 100 mls/hr IVPB Q12H [facility] Last Admin: 06/23/16 09:55 Dose: 100 mls/hr Meropenem 1 gm/ Sodium (Chloride) 100 mls @ 100 mls/hr IVPB Q12@0800,2000 [facility] Last Admin: 06/23/16 09:52 Dose: 100 mls/hr Hydrocortisone Sodium Succinate 100 mg/ Sodium Chloride 100 mls @ 100 mls/hr IV Q8 [facility] Last Admin: 06/23/16 09:53 Dose: 100 mls/hr Lactobacillus Acidophilus (Bacid Acidophilus) 1 cap PO BID [facility] Last Admin: 06/23/16 09:49 Dose: 1 cap Levothyroxine Sodium (Synthroid) 50 mcg PO 0630 [facility] Last Admin: 06/23/16 05:30 Dose: 50 mcg Loperamide HCl (Imodium) 2 mg PO QID PRN PRN Reason: Diarrhea Last Admin: 06/23/16 10:02 Dose: 2 mg Multi-Ingredient Cream (Hydrocerin Cream) 1 applic TOP BID [facility] Last Admin: 06/23/16 09:51 Dose: Not Given Multivitamins/Minerals (Therapeutic-M Tab) 1 tab PO DAILY [facility] Last Admin: 06/23/16 09:54 Dose: 1 tab Pantoprazole Sodium (Protonix Ec Tab) 40 mg PO DAILY [facility] Last Admin: 06/23/16 09:56 Dose: 40 mg Potassium Chloride (Potassium Chloride Oral Soln) 20 meq PO DAILY [facility] Last Admin: 06/23/16 10:14 Dose: 20 meq Senna/Docusate Sodium (Senokot S 50 Mg-8.6 Mg) 1 tab PO HS [facility] Last Admin: 06/11/16 21:19 Dose: 1 tab Spironolactone (Aldactone) 12.5 mg PO DAILY [facility] Last Admin: 06/23/16 09:42 Dose: 12.5 mg Theophylline (Uniphyl) 600 mg PO DAILY [facility] Last Admin: 06/23/16 09:54 Dose: 600 mg Verapamil HCl (Calan Tab) 40 mg PO TID [facility] Last Admin: 06/23/16 10:46 Dose: 40 mg Zolpidem Tartrate (Ambien) 5 mg PO HS PRN PRN Reason: Sleep Last Admin: 06/22/16 21:10 Dose: 5 mg - Labs Labs: 06/23/16 05:15 06/23/16 12:10 PT 11.0 SECONDS (9.6-11.2) 06/09/16 04:10 INR 1.06 (0.92-1.08) 06/09/16 04:10 APTT 27.5 SECONDS (23.3-32.5) 06/03/16 22:33
--- NOTE | 2016-06-23 14:42 | CP.CCUPN ---
CCU Subjective - Physician Review Subjective (Free Text): EMBEDDED NURSE PROGRESS NOTE Patient examined, interim events reviewed: Awake and alert, Ox3, does not appear distressed this Am after just being placed onto regular flow nasal cannula. Denies fevers, chills, dizziness, palpitations, sweats, nausea, or abdominal discomfort. VS: Afebrile, 138/80, HR 120 sinus, RR 18-20, 93-94% on 3LPM NC. 24H I/Os= neg 0.4L. ROS: as above, no other pertinent negs or positives on 10 system review. PMFSH: all nursing and historical notes reviewed, no new pertinent data relevant to current problems. No other distress noted: EXAM- HEENT: no icterus, pupils equal and reactive, prominent induration R cheek NECK: no visible JVD, supple, carotids equal upstroke bilat/no bruits CHEST: decreased BS bases, no wheezes audible. R upper chest PICC. Left mastectomy HEART: regular, distant, S1S2, no murmur audible, no rubs. ABD: soft, no increased distention, no focal tenderness, no HSM. BS hypoactive , EXT: +++ edema, RUE chronically edematous with lymphedema, no peripheral/ digital cyanosis, no calf tenderness or palpable cords, distal pulses intact and symmetrical NEURO: oriented x 3; no gross focal motor deficits SKIN: no rashes LABS: WBC= 10.2 HGB= 11.3 PLTs= 371K Na= 142 K= 2.5 HCO3= 38 BUN/Cr= 20/0.4 BS= 140 PCT= 0.13 Last CXR 06/19/[address] Chest 06/14/16, 06/20/16 films and results reviewed. Assessment: 1. Acute hypercapneic hypoxemic Resp Failure, 2 Bronchitis and poor mobilization of secretions; on HFNC, h/o COPD with Emphysematous lung disease. 2. R Mandible Osteomyelitis 3. Severe hypokalemia 4. Anasarca / Severe hypoalbuminema 5. h/o Hyperthyroidism, and now Hypothyroid. 6. h/o metastatic breast CA PLAN: 1. Watch for tolerance to regular flow nasal cannula oxygen. Appears overall less tachypneic today with less prominent use of accessory mm as evidenced 3 days ago. 2. PRBCs noted for transfusion, HGb at expected levels from 8 to 11 today. 3. Needs more K replacement, estd needs near to 120 meq for todays replacement. 4. Check Mag / Phos levels. 5. Still reserving BiPAP / MV support if needed. 6. Aldactone started today.
[2016-06-24] MEDS: Hydrocortisone- 100 MG in Sodium Chloride 0.9% 100 ML IV SCH ×3 (02:17→16:18)
[2016-06-24] MEDS ORDERED: guaiFENesin DM 200 mg-20 mg/10 ml UD PO PRN (02:26)
[2016-06-24] MEDS ORDERED: Oxycodone/Acetaminophen 5/325 mg Tab PO PRN (03:56)
[2016-06-24 05:30] LABS: HEMATOCRIT 37.9 % (34.0-47.0); MEAN CELL VOLUME 80.6 fl (81.0-99.0); MEAN CORPUSCULAR HGB CONC 29.8 g/dL (33.0-37.0); RED CELL DISTRIBUTION WIDTH 32.1 % (11.5-14.5); WHITE BLOOD COUNT 10.7 K/uL (4.8-10.8)
[2016-06-24 05:45] LABS: ABG ALLEN TEST YES; ARTERIAL BLOOD FLOW 30; ARTERIAL BLOOD GAS HCO3 35.8 mmol/L (21-28); ARTERIAL BLOOD GAS MODE HIGH FLOW LPM; ARTERIAL BLOOD GAS O2 CAPACITY 16.6 mL/dL (16-24); ARTERIAL BLOOD GAS O2 CONTENT 15.7 ML/dL (15-23); ARTERIAL BLOOD GAS PH 7.49 (7.35-7.45); ARTERIAL BLOOD GAS PO2 66 mm/Hg (80-100); ARTERIAL BLOOD HGB O2 SAT 91.4 % (95.0-98.0); CARBOXYHEMOGLOBIN 2.4 % (0.5-1.5); HHB 5.2 % (0.0-5.0)
[2016-06-24 05:53] LABS: BLOOD UREA NITROGEN 21 mg/dl (7-17); CARBON DIOXIDE 37 mmol/L (22-30); CHLORIDE 98 mmol/L (98-107); GFR AFRICAN-AMERICAN > 60; GLUCOSE,RANDOM 116 mg/dL (65-105); POTASSIUM 3.5 MMOL/L (3.6-5.0); SODIUM 141 mmol/l (132-148)
[2016-06-24] MEDS: Levothyroxine 50 MCG TAB PO SCH (06:25)
[2016-06-24] MEDS ORDERED: Potassium Chloride 20 mEq/15 ml LIQ UD PO ONE (08:02)
[2016-06-24] MEDS: Meropenem 1 GM in Sodium Chloride 0.9% 100 ML IVPB SCH ×2 (08:11→21:00)
[2016-06-24] MEDS: Albuterol-Ipratrop 3 mg / 0.5 (3 ml) UD INH SCH ×4 (08:20→19:06)
[2016-06-24] MEDS: Acetylcysteine 10% 4 ML IH SCH ×2 (08:20→19:06)
[2016-06-24] MEDS: Enoxaparin 40 mg Syringe SC SCH (08:55)
[2016-06-24] MEDS: Lactobacillus Acidophilus 500 MU Cap PO SCH ×2 (08:57→17:52)
[2016-06-24] MEDS: Multivitamin With Minerals Tab PO SCH (08:58)
[2016-06-24] MEDS: Pantoprazole 40 mg EC Tab PO SCH (08:59)
[2016-06-24] MEDS: Hydrocerin CREAM TOP SCH ×2 (08:59→16:20)
[2016-06-24] MEDS: THEOPHYLLINE 400 MG T24(UNIPHYL) PO SCH (10:03)
[2016-06-24] MEDS: Potassium Chloride 20 mEq/15 ml LIQ UD PO SCH (10:04)
--- NOTE | 2016-06-24 10:06 | CP.PCM.PN ---
Subjective - Date & Time of Evaluation Date of Evaluation: 06/24/16 Time of Evaluation: 09:58 - Subjective Subjective: Interim events reviewed. There appears to be a substantial increase in the abscess size today. There is increased local pain in the same region once again as well. No change in vital signs. Breathing is still slightly labored, but SpO2 is maintained >95%. Breath sounds are prersent bilaterally w/o wheezing. Few dry rales in dependant zones. Abscess is larger with fluctuance. Spoke with IR and drainage will be done today with specimen for culture. Resumed Zosyn/Clinda with continued meropenem as per ID. Vancomycin is discontinued. Other medical regimen goes unchanged. Objective - Vital Signs/Intake and Output Vital Signs (last 24 hours): Temp Pulse Resp BP Pulse Ox 98.3 F 119 H 24 121/73 93 L 06/24/16 08:00 06/24/16 08:00 06/24/16 08:21 06/24/16 09:01 06/24/16 08:00 Intake and Output: 06/23/16 06/24/16 23:59 11:59 Intake Total 950 220 Output Total 1502 400 Balance -552 -180 - Medications Medications: Current Medications Acetaminophen (Tylenol 325mg Tab) 650 mg PO Q6 PRN PRN Reason: Pain, moderate (4-7) Last Admin: 06/22/16 10:29 Dose: 650 mg Acetylcysteine (Mucomyst 10% 4ml) 2 ml IH RBID [facility] Last Admin: 06/24/16 08:20 Dose: 2 ml Albuterol Sulfate (Albuterol 0.083% Inhal Aby (2.5 Mg/3 Ml) Ud) 2.5 mg INH RQ4 PRN PRN Reason: Shortness of Breath Last Admin: 06/22/16 18:21 Dose: 2.5 mg Albuterol/Ipratropium (Duoneb 3 Mg/0.5 Mg (3 Ml) Ud) 3 ml INH RQID [facility] Last Admin: 06/24/16 08:20 Dose: 3 ml Anastrozole (Arimidex 1 Mg Tab) 1 mg PO DAILY [facility] Last Admin: 06/24/16 08:58 Dose: 1 mg Aspirin (Ecotrin) 81 mg PO DAILY [facility] Last Admin: 06/24/16 08:55 Dose: 81 mg Baclofen (Lioresal) 10 mg PO HS [facility] Last Admin: 06/23/16 23:00 Dose: 10 mg Capsaicin (Trixaicin Cream) 1 applic TOP BID [facility] Last Admin: 06/23/16 16:31 Dose: 1 applic Enoxaparin Sodium (Lovenox) 40 mg SC DAILY [facility] PRN Reason: Protocol Last Admin: 06/24/16 08:55 Dose: 40 mg Furosemide (Lasix) 20 mg IVP DAILY [facility] Last Admin: 06/24/16 09:01 Dose: 20 mg Gabapentin (Neurontin) 600 mg PO TID [facility] Last Admin: 06/24/16 08:55 Dose: 600 mg Meropenem 1 gm/ Sodium (Chloride) 100 mls @ 100 mls/hr IVPB Q12@0800,2000 [facility] Last Admin: 06/24/16 08:11 Dose: 100 mls/hr Hydrocortisone Sodium Succinate 100 mg/ Sodium Chloride 100 mls @ 100 mls/hr IV Q8 [facility] Last Admin: 06/24/16 08:59 Dose: 100 mls/hr Piperacillin Sod/Tazobactam (Sod 3.375 gm/ Sodium Chloride) 100 mls @ 100 mls/ hr IVPB Q8 [facility] Clindamycin Phosphate 600 mg/ (Sodium Chloride) 104 mls @ 104 mls/hr IVPB Q8 [facility] Lactobacillus Acidophilus (Bacid Acidophilus) 1 cap PO BID [facility] Last Admin: 06/24/16 08:57 Dose: 1 cap Levothyroxine Sodium (Synthroid) 50 mcg PO 0630 [facility] Last Admin: 06/24/16 06:25 Dose: 50 mcg Loperamide HCl (Imodium) 2 mg PO QID PRN PRN Reason: Diarrhea Last Admin: 06/23/16 10:02 Dose: 2 mg Multi-Ingredient Cream (Hydrocerin Cream) 1 applic TOP BID [facility] Last Admin: 06/24/16 08:59 Dose: 1 applic Multivitamins/Minerals (Therapeutic-M Tab) 1 tab PO DAILY [facility] Last Admin: 06/24/16 08:58 Dose: 1 tab Oxycodone/Acetaminophen (Percocet 5/325 Mg Tab) 1 tab PO Q6 PRN PRN Reason: Pain, moderate (4-7) Stop: 06/27/16 03:57 Last Admin: 06/24/16 04:10 Dose: 1 tab Pantoprazole Sodium (Protonix Ec Tab) 40 mg PO DAILY [facility] Last Admin: 06/24/16 08:59 Dose: 40 mg Potassium Chloride (Potassium Chloride Oral Soln) 20 meq PO DAILY [facility] Last Admin: 06/23/16 10:14 Dose: 20 meq Senna/Docusate Sodium (Senokot S 50 Mg-8.6 Mg) 1 tab PO HS [facility] Last Admin: 06/11/16 21:19 Dose: 1 tab Spironolactone (Aldactone) 12.5 mg PO DAILY [facility] Last Admin: 06/24/16 08:54 Dose: 12.5 mg Theophylline (Uniphyl) 600 mg PO DAILY [facility] Last Admin: 06/23/16 09:54 Dose: 600 mg Verapamil HCl (Calan Tab) 40 mg PO TID [facility] Last Admin: 06/24/16 08:54 Dose: 40 mg Zolpidem Tartrate (Ambien) 5 mg PO HS PRN PRN Reason: Sleep Last Admin: 06/23/16 21:40 Dose: 5 mg - Labs Labs: 06/24/16 04:25 06/24/16 04:25 PT 11.0 SECONDS (9.6-11.2) 06/09/16 04:10 INR 1.06 (0.92-1.08) 06/09/16 04:10 APTT 27.5 SECONDS (23.3-32.5) 06/03/16 22:33 Assessment and Plan (1) Acute bronchitis with chronic obstructive pulmonary disease (COPD) Status: Acute (2) Hyperthyroidism Status: Chronic (3) Abscess Status: Acute
--- NOTE | 2016-06-24 10:42 | CP.PCM.PN ---
Subjective - Date & Time of Evaluation Date of Evaluation: 06/24/16 Time of Evaluation: 10:41 - Subjective Subjective: Pt is still very short of breath, but alert and awake.She is on high flow O2 is 93%., her cbc is in the normal limits.. Wiil continue to monitor her CBC Objective - Vital Signs/Intake and Output Vital Signs (last 24 hours): Temp Pulse Resp BP Pulse Ox 98.3 F 119 H 24 121/73 93 L 06/24/16 08:00 06/24/16 08:00 06/24/16 08:21 06/24/16 09:01 06/24/16 08:00 Intake and Output: 06/24/16 06/24/16 06:59 18:59 Intake Total 520 Output Total 400 Balance 120 - Medications Medications: Current Medications Acetaminophen (Tylenol 325mg Tab) 650 mg PO Q6 PRN PRN Reason: Pain, moderate (4-7) Last Admin: 06/22/16 10:29 Dose: 650 mg Acetylcysteine (Mucomyst 10% 4ml) 2 ml IH RBID [facility] Last Admin: 06/24/16 08:20 Dose: 2 ml Albuterol Sulfate (Albuterol 0.083% Inhal Aby (2.5 Mg/3 Ml) Ud) 2.5 mg INH RQ4 PRN PRN Reason: Shortness of Breath Last Admin: 06/22/16 18:21 Dose: 2.5 mg Albuterol/Ipratropium (Duoneb 3 Mg/0.5 Mg (3 Ml) Ud) 3 ml INH RQID [facility] Last Admin: 06/24/16 08:20 Dose: 3 ml Anastrozole (Arimidex 1 Mg Tab) 1 mg PO DAILY [facility] Last Admin: 06/24/16 08:58 Dose: 1 mg Aspirin (Ecotrin) 81 mg PO DAILY [facility] Last Admin: 06/24/16 08:55 Dose: 81 mg Baclofen (Lioresal) 10 mg PO HS [facility] Last Admin: 06/23/16 23:00 Dose: 10 mg Capsaicin (Trixaicin Cream) 1 applic TOP BID [facility] Last Admin: 06/24/16 10:03 Dose: 1 applic Enoxaparin Sodium (Lovenox) 40 mg SC DAILY [facility] PRN Reason: Protocol Last Admin: 06/24/16 08:55 Dose: 40 mg Furosemide (Lasix) 20 mg IVP DAILY [facility] Last Admin: 06/24/16 09:01 Dose: 20 mg Gabapentin (Neurontin) 600 mg PO TID [facility] Last Admin: 06/24/16 08:55 Dose: 600 mg Meropenem 1 gm/ Sodium (Chloride) 100 mls @ 100 mls/hr IVPB Q12@0800,2000 [facility] Last Admin: 06/24/16 08:11 Dose: 100 mls/hr Hydrocortisone Sodium Succinate 100 mg/ Sodium Chloride 100 mls @ 100 mls/hr IV Q8 [facility] Last Admin: 06/24/16 08:59 Dose: 100 mls/hr Piperacillin Sod/Tazobactam (Sod 3.375 gm/ Sodium Chloride) 100 mls @ 100 mls/ hr IVPB Q8 [facility] Clindamycin Phosphate 600 mg/ (Sodium Chloride) 104 mls @ 104 mls/hr IVPB Q8 [facility] Lactobacillus Acidophilus (Bacid Acidophilus) 1 cap PO BID [facility] Last Admin: 06/24/16 08:57 Dose: 1 cap Levothyroxine Sodium (Synthroid) 50 mcg PO 0630 [facility] Last Admin: 06/24/16 06:25 Dose: 50 mcg Loperamide HCl (Imodium) 2 mg PO QID PRN PRN Reason: Diarrhea Last Admin: 06/23/16 10:02 Dose: 2 mg Multi-Ingredient Cream (Hydrocerin Cream) 1 applic TOP BID [facility] Last Admin: 06/24/16 08:59 Dose: 1 applic Multivitamins/Minerals (Therapeutic-M Tab) 1 tab PO DAILY [facility] Last Admin: 06/24/16 08:58 Dose: 1 tab Oxycodone/Acetaminophen (Percocet 5/325 Mg Tab) 1 tab PO Q6 PRN PRN Reason: Pain, moderate (4-7) Stop: 06/27/16 03:57 Last Admin: 06/24/16 04:10 Dose: 1 tab Pantoprazole Sodium (Protonix Ec Tab) 40 mg PO DAILY [facility] Last Admin: 06/24/16 08:59 Dose: 40 mg Potassium Chloride (Potassium Chloride Oral Soln) 20 meq PO DAILY [facility] Last Admin: 06/24/16 10:04 Dose: 20 meq Senna/Docusate Sodium (Senokot S 50 Mg-8.6 Mg) 1 tab PO HS [facility] Last Admin: 06/11/16 21:19 Dose: 1 tab Spironolactone (Aldactone) 12.5 mg PO DAILY [facility] Last Admin: 06/24/16 08:54 Dose: 12.5 mg Theophylline (Uniphyl) 600 mg PO DAILY [facility] Last Admin: 06/24/16 10:03 Dose: 600 mg Verapamil HCl (Calan Tab) 40 mg PO TID [facility] Last Admin: 06/24/16 08:54 Dose: 40 mg Zolpidem Tartrate (Ambien) 5 mg PO HS PRN PRN Reason: Sleep Last Admin: 06/23/16 21:40 Dose: 5 mg - Labs Labs: 06/24/16 04:25 06/24/16 04:25 PT 11.0 SECONDS (9.6-11.2) 06/09/16 04:10 INR 1.06 (0.92-1.08) 06/09/16 04:10 APTT 27.5 SECONDS (23.3-32.5) 06/03/16 22:33
[2016-06-24] MEDS: Clindamycin 600 MG in Sodium Chloride 0.9% 100 ML IVPB SCH ×2 (11:04→17:51)
--- NOTE | 2016-06-24 13:03 | RAD ---
HISTORY: f/u CHF COMPARISON: Comparison is made to 06/20 FINDINGS: LUNGS: No evidence of new infiltrate or consolidation in the lungs. Mild hyperinflation of the lungs is again noted. There is mild elevation of the left hemidiaphragm. PLEURA: Blunting of both costophrenic angles. CARDIOVASCULAR: The cardiac silhouette is mildly enlarged. 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 VISUALIZED UPPER ABDOMEN: Normal. OTHER FINDINGS: Right jugular central line is again seen in place. IMPRESSION: No significant interval change since the previous exam noted.
--- NOTE | 2016-06-24 13:42 | CP.PCM.PN ---
Subjective - Date & Time of Evaluation Date of Evaluation: 06/24/16 Time of Evaluation: 11:00 - Subjective Subjective: No fever Right facial abscess seem to be bigger and rounder, more fluctuant and tender today than the last time I saw her Tuesday stable resp standpoint at present sl wheeze no CP occ cough- dry no abd pain Objective - Vital Signs/Intake and Output Vital Signs (last 24 hours): Temp Pulse Resp BP Pulse Ox 98 F 120 H 21 119/84 94 L 06/24/16 12:00 06/24/16 12:00 06/24/16 12:00 06/24/16 12:00 06/24/16 12:00 Intake and Output: 06/24/16 06/24/16 06:59 18:59 Intake Total 520 780 Output Total 400 Balance 120 780 - Medications Medications: Current Medications Acetaminophen (Tylenol 325mg Tab) 650 mg PO Q6 PRN PRN Reason: Pain, moderate (4-7) Last Admin: 06/22/16 10:29 Dose: 650 mg Acetylcysteine (Mucomyst 10% 4ml) 2 ml IH RBID [facility] Last Admin: 06/24/16 08:20 Dose: 2 ml Albuterol Sulfate (Albuterol 0.083% Inhal Aby (2.5 Mg/3 Ml) Ud) 2.5 mg INH RQ4 PRN PRN Reason: Shortness of Breath Last Admin: 06/22/16 18:21 Dose: 2.5 mg Albuterol/Ipratropium (Duoneb 3 Mg/0.5 Mg (3 Ml) Ud) 3 ml INH RQID [facility] Last Admin: 06/24/16 11:49 Dose: 3 ml Anastrozole (Arimidex 1 Mg Tab) 1 mg PO DAILY [facility] Last Admin: 06/24/16 08:58 Dose: 1 mg Aspirin (Ecotrin) 81 mg PO DAILY [facility] Last Admin: 06/24/16 08:55 Dose: 81 mg Baclofen (Lioresal) 10 mg PO HS [facility] Last Admin: 06/23/16 23:00 Dose: 10 mg Capsaicin (Trixaicin Cream) 1 applic TOP BID [facility] Last Admin: 06/24/16 10:03 Dose: 1 applic Enoxaparin Sodium (Lovenox) 40 mg SC DAILY [facility] PRN Reason: Protocol Last Admin: 06/24/16 08:55 Dose: 40 mg Furosemide (Lasix) 20 mg IVP DAILY [facility] Last Admin: 06/24/16 09:01 Dose: 20 mg Gabapentin (Neurontin) 600 mg PO TID [facility] Last Admin: 06/24/16 08:55 Dose: 600 mg Meropenem 1 gm/ Sodium (Chloride) 100 mls @ 100 mls/hr IVPB Q12@0800,2000 [facility] Last Admin: 06/24/16 08:11 Dose: 100 mls/hr Hydrocortisone Sodium Succinate 100 mg/ Sodium Chloride 100 mls @ 100 mls/hr IV Q8 [facility] Last Admin: 06/24/16 08:59 Dose: 100 mls/hr Piperacillin Sod/Tazobactam (Sod 3.375 gm/ Sodium Chloride) 100 mls @ 100 mls/ hr IVPB Q8 [facility] Clindamycin Phosphate 600 mg/ (Sodium Chloride) 104 mls @ 104 mls/hr IVPB Q8 [facility] Last Admin: 06/24/16 11:04 Dose: 104 mls/hr Lactobacillus Acidophilus (Bacid Acidophilus) 1 cap PO BID [facility] Last Admin: 06/24/16 08:57 Dose: 1 cap Loperamide HCl (Imodium) 2 mg PO QID PRN PRN Reason: Diarrhea Last Admin: 06/23/16 10:02 Dose: 2 mg Multi-Ingredient Cream (Hydrocerin Cream) 1 applic TOP BID [facility] Last Admin: 06/24/16 08:59 Dose: 1 applic Multivitamins/Minerals (Therapeutic-M Tab) 1 tab PO DAILY [facility] Last Admin: 06/24/16 08:58 Dose: 1 tab Oxycodone/Acetaminophen (Percocet 5/325 Mg Tab) 1 tab PO Q6 PRN PRN Reason: Pain, moderate (4-7) Stop: 06/27/16 03:57 Last Admin: 06/24/16 04:10 Dose: 1 tab Pantoprazole Sodium (Protonix Ec Tab) 40 mg PO DAILY [facility] Last Admin: 06/24/16 08:59 Dose: 40 mg Potassium Chloride (Potassium Chloride Oral Soln) 20 meq PO DAILY [facility] Last Admin: 06/24/16 10:04 Dose: 20 meq Senna/Docusate Sodium (Senokot S 50 Mg-8.6 Mg) 1 tab PO HS [facility] Last Admin: 06/11/16 21:19 Dose: 1 tab Spironolactone (Aldactone) 12.5 mg PO DAILY [facility] Last Admin: 06/24/16 08:54 Dose: 12.5 mg Theophylline (Uniphyl) 600 mg PO DAILY [facility] Last Admin: 06/24/16 10:03 Dose: 600 mg Verapamil HCl (Calan Tab) 40 mg PO TID [facility] Last Admin: 06/24/16 08:54 Dose: 40 mg Zolpidem Tartrate (Ambien) 5 mg PO HS PRN PRN Reason: Sleep Last Admin: 06/23/16 21:40 Dose: 5 mg - Labs Labs: 06/24/16 04:25 06/24/16 04:25 PT 11.0 SECONDS (9.6-11.2) 06/09/16 04:10 INR 1.06 (0.92-1.08) 06/09/16 04:10 APTT 27.5 SECONDS (23.3-32.5) 06/03/16 22:33 - Constitutional Appears: Chronically Ill - Head Exam Head Exam: NORMAL INSPECTION, NORMOCEPHALIC - Eye Exam Eye Exam: EOMI, Normal appearance Pupil Exam: NORMAL ACCOMMODATION - ENT Exam ENT Exam: Mucous Membranes Dry, Normal External Ear Exam Additional comments: right facial swelling, sl bigger than previous - more fluctuant and more tender today - Neck Exam Neck Exam: Full ROM. absent: Meningismus - Respiratory Exam Respiratory Exam: tachypneic ,+ Rales, Rhonchi, + wheezing on High Flow Oxygen - Cardiovascular Exam Cardiovascular Exam: REGULAR RHYTHM, +S1, +S2 - GI/Abdominal Exam GI & Abdominal Exam: Soft, Normal Bowel Sounds. absent: Tenderness - Extremities Exam Extremities Exam: Normal Capillary Refill, + Pedal Edema Additional comments: abrasions LE - Back Exam Back Exam: absent: CVA tenderness (L), CVA tenderness (R) - Neurological Exam Neurological Exam: Alert, Awake, CN II-XII Intact, Oriented x3 - Psychiatric Exam Psychiatric exam: Normal Affect, Normal Mood - Skin Skin Exam: Dry, Normal Color, Warm Assessment and Plan (1) Acute and chronic respiratory failure with hypercapnia Status: Acute (2) Osteomyelitis of mandible Status: Acute (3) Hypothyroidism Status: Acute (4) Acute exacerbation of chronic obstructive pulmonary disease (COPD) Status: Acute (5) HTN (hypertension) Status: Chronic (6) Hx of breast cancer Status: Chronic (7) Acute exacerbation of CHF (congestive heart failure) Status: Acute (8) Hypokalemia Status: Acute (9) DVT prophylaxis Status: Acute - Assessment and Plan (Free Text) Assessment: 66 y/o female PMH COPD, bilateral breast CA s/p chemo and radiation 8 years ago with bone mets to shoulder (s/p humerus resection), HTN, hyperthyroidism presented with 2 week history of worsening bilateral lower extremity swelling and weakness, unable to get herself up to her walker. Patient has mild dyspnea at baseline. She also noted to have right facial swelling for almost 2 weeks and was taking PO antibiotics prescribed by her dentist. Patient was admitted for generalized weakness , Hyponatremia and facial abscess. She was started on IV Clinda and Zosyn for facial abscess and Lasix IV with fluid restriction for LE edema. At present she is afebrile, Maxillofacial Ct showed possible abscess accumulation and patient had purulent discharge from an opening in oral mucosa. Evaluated by maxillofacial surgeon and underwent Incision and drainage of abscess. At present with no positive cultures. Bone scan showed possible osteomyelitis so she was started on Vancomycin and Zosyn IV then changed to Vanco and Meropenem (4-6 weeks as per ID recommendations). During this hospitalization noted to have increased dyspnea at rest and more so with minimal activity, decreased air entry bilaterally and increased work of breathing. She was started on high flow O2,Higher doses of theophylline and hydrocortisone. CTA chest and LE doppler showed no DVT. She was transferred to ICU for close monitoring for tachypnea and tachycardia. At present on high flow O2, still with dyspnea at rest . 1.Acute on Chronic Respiratory Insufficiency with hypercapnea Most likely secondary to COPD exacerbation with acute bronchitis and CHF exacerbation Still on high flow O2 via NC 35 l/min on FIO2 30 % with good oxygenation 96% CT chest showed no PE and improved bilateral pleural effusion after diuresis LE doppler showed no DVT Continue lasix and aldactone Continue Duonebs Continue Chest PT , Coughalator and Acapella therapy pulmonary consulted : Dr. Benz who is following pt closely On Hydrocortisone to 100 mg IV Q8 and Theophylline to 600 mg Po daily 2. Facial abscess with mandibular Osteomyelitis s/p drainage of abscess Patient is afebrile, improving Maxillofacial Ct showed :Large enhancing wall collection seen around the mid and upper right mandibular ramus and mandibular neck extending anteriorly and seen medial and lateral to the right zygomatic arch. This collection contains foci of air. The density and the appearance of this collection suggestive of abscess formation. The collection is seen anterior to the right parotid gland and extending medially to the posterior right oral cavity. [id number] right maxillary sinus mucosal thickening and small air-fluid level. Partial opacification of both mastoids suggestive of mastoiditis. ID on consult: Dr Obrien. Recommended IV abx 6 wks total ( # Day ) OMFS Dr. Ambrose consulted and patient underwent Incision and drainage on 06/09 All cultures with no growth so far pathology report showed inflammatory cells, no malignancy Nuclear Bone Scan suggestive of osteomyelitis Tunneled central line placed for longterm IV antibiotics- this will need to be d/c by IR after IV abx treatment is completed ( as discussed with Dr Gunter - pt was informed of need to see IR after abx tx) Antibiotics cganhed today : IV Clinda, Zosyn and Meropenem 3. Bilateral LE edema sec to CHF exacerbation with diastolic dysfxn Echo showed EF 40-45 % and dilated RV continue fluid restriction Will give lasix 40 mg today and Aldactone K 2.5. replace with Kcl 40MEQ CT chest showed bilateral small to moderate pleural effusion that improved after diuresis Podiatry consulted for dorsum pain and wound consult for LE abrasions 4.Hypokalemia K 2.5 today Most likely diuretic induced replete with Kcl 40 MEQ today 5.Hyponatremia, resolved most likely secondary to solute depletion and infection Continue fluid restriction 6.Hx breast ca, bilateral stable, s/p bilateral mastectomy continue arimidex 7.Hypertension on the low side d/c Metoprolol Decreased Verapamil to 40 mg TID 8. Hypothyroidism patient has history of hyperthyroidism and was on Methimazole - patient has developed hypothyroidism , Methimazole was d/c and she was started on Po levothyroxine- will d/c levothyroxine as TSH went down TSH 41 - now down to 0.15 Endo consulted - Dr Vu following pt 9. Anemia, chronic dis monitor anemia work up showed depleted iron stores Venofer IV given s/p 2 uit PRBC transfusion 10.DVT ppx lovenox
[2016-06-24] MEDS ORDERED: Lidocaine 1% Inj (20ml) ONE (14:36)
--- NOTE | 2016-06-24 15:38 | PCM.SURG1 ---
Surgeon's Initial Post Op Note - Surgeon's Notes Surgeon: Lyric Packer Denture: None Type of Anesthesia: Local Pre-Operative Diagnosis: Right buccal fluid collection. Operative Findings: Right buccal fluid collection. Post-Operative Diagnosis: Right buccal fluid collection. Operation Performed: Right buccal fluid collection aspiration. Specimen/Specimens Removed: Approx 24cc of pale yellow slightly cloudy fluid was aspirated. Estimated Blood Loss: EBL {In ML}: 1 Date of Surgery/Procedure: 06/24/16 Time of Surgery/Procedure: 15:00
--- NOTE | 2016-06-24 16:07 | CP.CCUPN ---
CCU Subjective - Physician Review Subjective (Free Text): PHYSICAL INSTRUCTOR PROGRESS NOTE Patient examined, interim events reviewed: Just returned from IR procedure after aspiration of 24 ml of yellowish fluid from buccal lesion area. Which was growing in size and associated with more painful discomfort today. pain may have also exacerbated breathing with increase in frequency of feelings of agitation and frustration leading to tachypnea, but again visibly does not appear to using accessory mm. to lift chest during inspiration as was evident a few days ago. Denies fevers, chills, dizziness, palpitations, sweats, nausea, or abdominal discomfort. VS: Afebrile , 119/60, HR 120 sinus, RR 22-20, 93-94% on 100% NRBM. 24H I/Os= neg 0.43L. ROS: as above, no other pertinent negs or positives on 10 system review. PMFSH: all nursing and historical notes reviewed, no new pertinent data relevant to current problems. No other distress noted: EXAM- HEENT: no icterus, pupils equal and reactive, prominent induration R cheek NECK: no visible JVD, supple, carotids equal upstroke bilat/no bruits CHEST: decreased BS bases, no wheezes audible. R upper chest PICC. Left mastectomy HEART: regular, distant, S1S2, no murmur audible, no rubs. ABD: soft, no increased distention, no focal tenderness, no HSM. BS hypoactive , EXT: +++ edema, RUE chronically edematous with lymphedema, no peripheral/ digital cyanosis, no calf tenderness or palpable cords, distal pulses intact and symmetrical NEURO: oriented x 3; no gross focal motor deficits SKIN: no rashes LABS: 7.49/52/66 WBC= 10.7 HGB= 11.3 PLTs= 384K Na= 141 K= 3.5 HCO3= 37 BUN/Cr= 21/0.3 BS= 116 PCT= 0.13 CXR today shows no new changes. Assessment: 1. Acute hypercapneic hypoxemic Resp Failure, 2 Bronchitis and poor mobilization of secretions; on HFNC, h/o COPD with Emphysematous lung disease. 2. R Mandible Osteomyelitis 3. Severe hypokalemia 4. Anasarca / Severe hypoalbuminema 5. h/o Hyperthyroidism, and now Hypothyroid. 6. h/o metastatic breast CA PLAN: 1. Change in abx coverage noted. Await cultures from buccal aspiration fluid. 2. Cautious anxiolytics prn. 3. HGB level sstable since PRBC transfusion 2 days ago. 4. K levels better, could supplement a bit more K today. 5. Still reserving BiPAP / MV support if needed. 6. Aldactone started, increase to BID.
[2016-06-24] MEDS: Piperacillin/Tazobact 3.375 GM in Sodium Chloride 0.9% 100 ML IVPB SCH (16:19)
[2016-06-25] MEDS: Piperacillin/Tazobact 3.375 GM in Sodium Chloride 0.9% 100 ML IVPB SCH ×3 (00:19→16:08)
[2016-06-25] MEDS: Clindamycin 600 MG in Sodium Chloride 0.9% 100 ML IVPB SCH ×3 (00:19→16:06)
[2016-06-25] MEDS: Hydrocortisone- 100 MG in Sodium Chloride 0.9% 100 ML IV SCH ×3 (00:19→16:07)
[2016-06-25 07:16] LABS: HEMATOCRIT 35.7 % (34.0-47.0); MEAN CELL VOLUME 80.4 fl (81.0-99.0); MEAN CORPUSCULAR HEMOGLOBIN 24.5 pg (27.0-31.0); MEAN CORPUSCULAR HGB CONC 30.5 g/dL (33.0-37.0); RED CELL DISTRIBUTION WIDTH 32.8 % (11.5-14.5); WHITE BLOOD COUNT 9.9 K/uL (4.8-10.8)
[2016-06-25 07:42] LABS: BLOOD UREA NITROGEN 22 mg/dl (7-17); CALCIUM 7.8 mg/dL (8.4-10.2); CARBON DIOXIDE 37 mmol/L (22-30); CHLORIDE 97 mmol/L (98-107); GFR AFRICAN-AMERICAN > 60; GLUCOSE,RANDOM 76 mg/dL (65-105); POTASSIUM 3.5 MMOL/L (3.6-5.0); SODIUM 141 mmol/l (132-148)
--- NOTE | 2016-06-25 07:56 | PN ---
DATE: 06/24/2016 ROOM: 434 This is a 66-year-old female with exacerbation of COPD and supervening congestive heart failure and i s now being followed closely for metabolic management. She also was overtly hypothyroid on admission and received levothyroxine replacement therapy despite the significant history of as noted the reof. Her latest thyroid studies showed a TSH of 0.49 with a total T4 of . So at this time, we will continue the same low dose . DICTATION ENDS HERE Polly Vu MD cc: [id number] TT: 06/24/2016 09:34:11 Confirmation # [id number] Dictation # [id number]
[2016-06-25 08:06] LABS: THYROID STIMULATING HORMONE 0.24 mIU/ML (0.46-4.68)
[2016-06-25] MEDS: Lactobacillus Acidophilus 500 MU Cap PO SCH ×2 (08:11→16:10)
[2016-06-25] MEDS: Hydrocerin CREAM TOP SCH ×2 (08:12→17:24)
[2016-06-25] MEDS: THEOPHYLLINE 400 MG T24(UNIPHYL) PO SCH (08:15)
[2016-06-25] MEDS: Meropenem 1 GM in Sodium Chloride 0.9% 100 ML IVPB SCH ×2 (08:17→19:52)
[2016-06-25] MEDS: Pantoprazole 40 mg EC Tab PO SCH (08:18)
[2016-06-25] MEDS: Enoxaparin 40 mg Syringe SC SCH (08:18)
[2016-06-25] MEDS: Multivitamin With Minerals Tab PO SCH (08:18)
[2016-06-25] MEDS: Potassium Chloride 20 mEq/15 ml LIQ UD PO SCH (08:18)
[2016-06-25] MEDS ORDERED: Potassium Chloride 20 mEq/15 ml LIQ UD PO ONE (08:22)
--- NOTE | 2016-06-25 08:22 | CP.CCUPN ---
CCU Subjective - Physician Review Subjective (Free Text): PROCUREMENT FORESTER PROGRESS NOTE Patient examined, interim events reviewed: Appears calm now, less frustrated and agitated as compared to yesterday. Denies fevers, chills, chest pain, dizziness, palpitations, sweats, nausea, or abdominal discomfort. VS: Afebrile, 140/60, HR 105 sinus, RR 22-20, 93-94% on 30% / 30LPM HFNC. 24H I/Os= +0.44L. ROS: as above, no other pertinent negs or positives on 10 system review. PMFSH: all nursing and historical notes reviewed, no new pertinent data relevant to current problems. No other distress noted: EXAM- HEENT: no icterus, pupils equal and reactive, prominent induration R cheek NECK: no visible JVD, supple, carotids equal upstroke bilat/no bruits CHEST: decreased BS bases, no wheezes audible. R upper chest PICC. Left mastectomy HEART: regular, distant, S1S2, no murmur audible, no rubs. ABD: soft, no increased distention, no focal tenderness, no HSM. BS hypoactive , EXT: +++ edema, RUE chronically edematous with lymphedema, no peripheral/ digital cyanosis, no calf tenderness or palpable cords, distal pulses intact and symmetrical NEURO: oriented x 3; no gross focal motor deficits SKIN: no rashes LABS: WBC= 9.9 HGB= 10.9 PLTs= 340K Na= 141 K= 3.5 HCO3= 37 BUN/Cr= 22/0.4 BS= 76 G/S of buccal mass: no organisms, many polys. Assessment: 1. Acute hypercapneic hypoxemic Resp Failure, 2 Bronchitis and poor mobilization of secretions; on HFNC, h/o COPD with Emphysematous lung disease. 2. R Mandible Osteomyelitis 3. Severe hypokalemia 4. Anasarca / Severe hypoalbuminema 5. h/o Hyperthyroidism, and now Hypothyroid. 6. h/o metastatic breast CA PLAN: 1. Change in abx coverage noted. Await cultures from buccal aspiration fluid. 2. Cautious anxiolytics prn. 3. HGB level sstable since PRBC transfusion 3 days ago. 4. Supplement more K today. 5. Still reserving BiPAP / MV support if needed. 6. Aldactone started, increase to BID.
[2016-06-25] MEDS: Albuterol-Ipratrop 3 mg / 0.5 (3 ml) UD INH SCH ×4 (08:59→19:28)
[2016-06-25] MEDS: Acetylcysteine 10% 4 ML IH SCH ×2 (08:59→19:28)
--- NOTE | 2016-06-25 11:18 | CP.PCM.PN ---
Subjective - Date & Time of Evaluation Date of Evaluation: 06/25/16 Time of Evaluation: 11:00 - Subjective Subjective: No fever Right facial swelling smaller after drainage by IR yesterday ( 24 ml yellowish fluid obtained ) however pt complains that mass is still painful and tender to touch able to swallow food denies hearing loss denies sinus congestion no tachypnea at present sl tachycardia no CP no abd pain Objective - Vital Signs/Intake and Output Vital Signs (last 24 hours): Temp Pulse Resp BP Pulse Ox 97.8 F 114 H 25 H 114/75 97 06/25/16 08:00 06/25/16 08:00 06/25/16 09:00 06/25/16 08:00 06/25/16 08:00 Intake and Output: 06/25/16 06/25/16 06:59 18:59 Intake Total 400 Balance 400 - Medications Medications: Current Medications Acetaminophen (Tylenol 325mg Tab) 650 mg PO Q6 PRN PRN Reason: Pain, moderate (4-7) Last Admin: 06/22/16 10:29 Dose: 650 mg Acetylcysteine (Mucomyst 10% 4ml) 2 ml IH RBID [facility] Last Admin: 06/25/16 08:59 Dose: 2 ml Albuterol Sulfate (Albuterol 0.083% Inhal Aby (2.5 Mg/3 Ml) Ud) 2.5 mg INH RQ4 PRN PRN Reason: Shortness of Breath Last Admin: 06/22/16 18:21 Dose: 2.5 mg Albuterol/Ipratropium (Duoneb 3 Mg/0.5 Mg (3 Ml) Ud) 3 ml INH RQID [facility] Last Admin: 06/25/16 08:59 Dose: 3 ml Alprazolam (Xanax) 0.25 mg PO Q12 PRN PRN Reason: Anxiety Stop: 07/01/16 15:23 Last Admin: 06/25/16 10:27 Dose: 0.25 mg Anastrozole (Arimidex 1 Mg Tab) 1 mg PO DAILY [facility] Last Admin: 06/25/16 08:17 Dose: 1 mg Aspirin (Ecotrin) 81 mg PO DAILY [facility] Last Admin: 06/25/16 08:09 Dose: 81 mg Baclofen (Lioresal) 10 mg PO HS [facility] Last Admin: 06/24/16 22:04 Dose: 10 mg Capsaicin (Trixaicin Cream) 1 applic TOP BID [facility] Last Admin: 06/25/16 08:12 Dose: 1 applic Enoxaparin Sodium (Lovenox) 40 mg SC DAILY [facility] PRN Reason: Protocol Last Admin: 06/25/16 08:18 Dose: 40 mg Gabapentin (Neurontin) 600 mg PO Q8H [facility] Last Admin: 06/25/16 06:48 Dose: 600 mg Meropenem 1 gm/ Sodium (Chloride) 100 mls @ 100 mls/hr IVPB Q12@0800,2000 [facility] Last Admin: 06/25/16 08:17 Dose: 100 mls/hr Hydrocortisone Sodium Succinate 100 mg/ Sodium Chloride 100 mls @ 100 mls/hr IV Q8 [facility] Last Admin: 06/25/16 08:18 Dose: 100 mls/hr Piperacillin Sod/Tazobactam (Sod 3.375 gm/ Sodium Chloride) 100 mls @ 100 mls/ hr IVPB Q8 [facility] Last Admin: 06/25/16 08:15 Dose: 100 mls/hr Clindamycin Phosphate 600 mg/ (Sodium Chloride) 104 mls @ 104 mls/hr IVPB Q8 [facility] Last Admin: 06/25/16 08:09 Dose: 104 mls/hr Lactobacillus Acidophilus (Bacid Acidophilus) 1 cap PO BID [facility] Last Admin: 06/25/16 08:11 Dose: 1 cap Loperamide HCl (Imodium) 2 mg PO QID PRN PRN Reason: Diarrhea Last Admin: 06/23/16 10:02 Dose: 2 mg Multi-Ingredient Cream (Hydrocerin Cream) 1 applic TOP BID [facility] Last Admin: 06/25/16 08:12 Dose: 1 applic Multivitamins/Minerals (Therapeutic-M Tab) 1 tab PO DAILY [facility] Last Admin: 06/25/16 08:18 Dose: 1 tab Oxycodone/Acetaminophen (Percocet 5/325 Mg Tab) 1 tab PO Q6 PRN PRN Reason: Pain, moderate (4-7) Stop: 06/27/16 03:57 Last Admin: 06/24/16 04:10 Dose: 1 tab Pantoprazole Sodium (Protonix Ec Tab) 40 mg PO DAILY [facility] Last Admin: 06/25/16 08:18 Dose: 40 mg Senna/Docusate Sodium (Senokot S 50 Mg-8.6 Mg) 1 tab PO HS [facility] Last Admin: 06/11/16 21:19 Dose: 1 tab Spironolactone (Aldactone) 12.5 mg PO BID [facility] Last Admin: 06/25/16 10:27 Dose: Not Given Theophylline (Uniphyl) 600 mg PO DAILY [facility] Last Admin: 06/25/16 08:15 Dose: 600 mg Verapamil HCl (Calan Tab) 40 mg PO Q8H [facility] Last Admin: 06/25/16 06:47 Dose: 40 mg Zolpidem Tartrate (Ambien) 5 mg PO HS PRN PRN Reason: Sleep Last Admin: 06/24/16 22:09 Dose: 5 mg - Labs Labs: 06/25/16 06:00 06/25/16 06:00 PT 11.0 SECONDS (9.6-11.2) 06/09/16 04:10 INR 1.06 (0.92-1.08) 06/09/16 04:10 APTT 27.5 SECONDS (23.3-32.5) 06/03/16 22:33 - Constitutional Appears: Chronically Ill, not in distress - Head Exam Head Exam: NORMAL INSPECTION, NORMOCEPHALIC - Eye Exam Eye Exam: EOMI, Normal appearance Pupil Exam: NORMAL ACCOMMODATION - ENT Exam ENT Exam: Mucous Membranes Dry, Normal External Ear Exam Additional comments: right facial swelling, smaller than yesterday however still with tenderness to touch - Neck Exam Neck Exam: Full ROM. absent: Meningismus - Respiratory Exam Respiratory Exam: + rhonchi , minimal rales bases, no wheezing on High Flow Oxygen - Cardiovascular Exam Cardiovascular Exam: REGULAR RHYTHM, +S1, +S2 - GI/Abdominal Exam GI & Abdominal Exam: Soft, Normal Bowel Sounds. absent: Tenderness - Extremities Exam Extremities Exam: Normal Capillary Refill, + Pedal Edema Additional comments: abrasions LE right shoulder deformity RUE edema - Back Exam Back Exam: absent: CVA tenderness (L), CVA tenderness (R) - Neurological Exam Neurological Exam: Alert, Awake, CN II-XII Intact, Oriented x3 - Psychiatric Exam Psychiatric exam: Normal Affect, Normal Mood - Skin Skin Exam: Dry, Normal Color, Warm Assessment and Plan (1) Acute and chronic respiratory failure with hypercapnia Status: Acute (2) Osteomyelitis of mandible Status: Acute (3) Hypothyroidism Status: Acute (4) Acute exacerbation of chronic obstructive pulmonary disease (COPD) Status: Acute (5) HTN (hypertension) Status: Chronic (6) Hx of breast cancer Status: Chronic (7) Acute exacerbation of CHF (congestive heart failure) Status: Acute (8) Hypokalemia Status: Acute (9) Facial abscess Status: Acute (10) DVT prophylaxis Status: Acute - Assessment and Plan (Free Text) Assessment: 66 y/o female PMH COPD, bilateral breast CA s/p chemo and radiation 8 years ago with bone mets to shoulder (s/p humerus resection), HTN, hyperthyroidism presented with 2 week history of worsening bilateral lower extremity swelling and weakness, unable to get herself up to her walker. Patient has mild dyspnea at baseline. She also came with a large right facial swelling for almost 2 weeks and was taking PO antibiotics prescribed by her dentist. Patient was admitted for generalized weakness , Hyponatremia and facial abscess. She was started on IV Clinda and Zosyn for facial abscess and Lasix IV with fluid restriction for LE edema. At present she is afebrile, Maxillofacial Ct showed possible abscess accumulation and patient had purulent discharge from an opening in oral mucosa. Evaluated by maxillofacial surgeon and underwent Incision and drainage of abscess. At present with no positive cultures. Bone scan showed possible osteomyelitis so she was started on Vancomycin and Zosyn IV then changed to Vanco and Meropenem (4-6 weeks as per ID recommendations). During this hospitalization noted to have increased dyspnea at rest and more so with minimal activity, decreased air entry bilaterally and increased work of breathing. She was started on high flow O2, Higher doses of theophylline and IV hydrocortisone. CTA chest and LE doppler showed no DVT. She was transferred to ICU for close monitoring for tachypnea and tachycardia. At present, still on High Flow Oxygen. Drainage of facial/buccal mass done by IR yesterday (24ml yellow fluid obtained ), mass kiln furniture saw tender. 1. Acute on Chronic Respiratory Insufficiency with hypercapnea Most likely secondary to COPD exacerbation with acute bronchitis and CHF exacerbation Still on high flow O2 via NC 35 L/min on FIO2 30 % with good oxygenation CT chest showed no PE and improved bilateral pleural effusion after diuresis LE doppler showed no DVT Diuretics changed to Aldactone bec of hypokalemia, Lasix prn Continue Duonebs Continue Chest PT , Coughalator and Acapella therapy pulmonary consulted : Dr. Benz who is following pt closely On Hydrocortisone to 100 mg IV Q8 and Theophylline to 600 mg Po daily started on very low dose Xanax 0.25 bid prn as this seem to selp when pt gets very anxious, tachypenic and tachycardic 2. Facial abscess with mandibular Osteomyelitis s/p drainage of abscess Maxillofacial Ct showed :Large enhancing wall collection seen around the mid and upper right mandibular ramus and mandibular neck extending anteriorly and seen medial and lateral to the right zygomatic arch. This collection contains foci of air. The density and the appearance of this collection suggestive of abscess formation. The collection is seen anterior to the right parotid gland and extending medially to the posterior right oral cavity. Adjy-al-deuvylsx right maxillary sinus mucosal thickening and small air-fluid level. Partial opacification of both mastoids suggestive of mastoiditis. ID on consult: Dr Obrien. Recommended IV abx 6 wks total ( # Day ) OMFS Dr. Ambrose consulted and patient underwent Incision and drainage on 06/09 All cultures with no growth so far pathology report showed inflammatory cells, no malignancy Nuclear Bone Scan suggestive of osteomyelitis Tunneled central line placed for terminal manager IV antibiotics- this will need to be d/c by IR after IV abx treatment is completed ( as discussed with Dr Gunter - pt was informed of need to see IR after abx tx) Antibiotics changed 06/24 : IV Clinda, Zosyn and Meropenem Pt underwent drainage of facial collection by IR on 06/24 - 24 ml yellow fuid ibtained - collection smaller today however pt complains of pain - Dr Ambrose will be reconsulted 3. Bilateral LE edema sec to CHF exacerbation with diastolic dysfxn Echo showed EF 40-45 % and dilated RV continue fluid restriction Diuretics changed to Aldactone 12.5 mg bid due to hypokalemia Lasix prn CT chest showed bilateral small to moderate pleural effusion that improved after diuresis Podiatry consulted for dorsum pain and wound consult for LE abrasions 4.Hypokalemia Most likely diuretic induced replete with Kcl 5.Hyponatremia, resolved most likely secondary to solute depletion and infection Continue fluid restriction 6.Hx breast ca, bilateral stable, s/p bilateral mastectomy continue arimidex 7.Hypertension on the low side d/c Metoprolol Decreased Verapamil to 40 mg TID 8. Hypothyroidism patient has history of hyperthyroidism and was on Methimazole - patient has developed hypothyroidism , Methimazole was d/c and she was started on Po levothyroxine- will d/c levothyroxine as TSH went down TSH 41 - now down to 0.24 Endo consulted - Dr Vu following pt 9. Anemia, chronic dis monitor anemia work up showed depleted iron stores Venofer IV given s/p 2 units PRBC transfusion 10.DVT ppx lovenox
--- NOTE | 2016-06-25 11:21 | PN ---
DATE: 06/25/2016 ROOM: This is a 66-year-old female presenting here with congestive heart failure with underlying exacerbati on of COPD with marked hypoxemia and has since then improved clinically and metabolically as noted th ereof. Her latest chemistries showed BUN of 22, sodium 141, potassium 3.5, chloride 97, CO2 31, glucose ____ _ and creatinine 0.4. So at this time, we will discontinue the levothyroxine given as 50 mcg daily as ordered and we will t itrate incrementally as indicated to optimize metabolic control. We will obtain serial chemistries a nd supplement accordingly as needed. Polly Vu MD cc: [id number] TT: 06/25/2016 11:21:05 Confirmation # [id number] Dictation # [id number] en
--- NOTE | 2016-06-25 13:43 | CP.PCM.PN ---
Subjective - Date & Time of Evaluation Date of Evaluation: 06/25/16 Time of Evaluation: 13:39 - Subjective Subjective: Seen on rounds in the ICU. Interval events were reviewed and the case discussed with the local owner operator truck driver. Aspiration of approximately 24 mL's of fluid from the right buccal abscess was accomplished yesterday. Gram stain of the aspirated fluid shows many polys but no organisms seen. Patient is awake and alert and cooperative with the exam. There is still significant area of swelling in the right cheek which is fluctuant and tender. A dry dressing is in place over the side of yesterday's aspiration. Her ability to open her mouth is limited because of the discomfort in the cheek. The oropharynx is hyperemic with some exudate still present. The neck is supple and trachea is midline. The right upper extremity is edematous as before. There is no dullness on chest percussion. No subcutaneous emphysema. When coached there is a congested cough which is still nonproductive. Breath sounds are diminished bilaterally. Rhonchi are heard with coughing. No audible wheezing. No bronchial breathing. The heart is mildly tachycardic at 100 bpm. The abdomen is soft and nontender. Bowel sounds are present. Dependent edema is noted without cyanosis. Continue current medical/aerosol regimen. Will discuss once again with oral maxillofacial surgery. Continue supplemental oxygen via high flow nasal cannula. Await culture results from yesterday's aspiration. Objective - Vital Signs/Intake and Output Vital Signs (last 24 hours): Temp Pulse Resp BP Pulse Ox 98.5 F 107 H 16 97/52 L 98 06/25/16 12:00 06/25/16 12:00 06/25/16 12:00 06/25/16 12:00 06/25/16 12:00 Intake and Output: 06/25/16 06/25/16 11:59 23:59 Intake Total 300 Balance 300 - Medications Medications: Current Medications Acetaminophen (Tylenol 325mg Tab) 650 mg PO Q6 PRN PRN Reason: Pain, moderate (4-7) Last Admin: 06/22/16 10:29 Dose: 650 mg Acetylcysteine (Mucomyst 10% 4ml) 2 ml IH RBID [facility] Last Admin: 06/25/16 08:59 Dose: 2 ml Albuterol Sulfate (Albuterol 0.083% Inhal Aby (2.5 Mg/3 Ml) Ud) 2.5 mg INH RQ4 PRN PRN Reason: Shortness of Breath Last Admin: 06/22/16 18:21 Dose: 2.5 mg Albuterol/Ipratropium (Duoneb 3 Mg/0.5 Mg (3 Ml) Ud) 3 ml INH RQID [facility] Last Admin: 06/25/16 11:56 Dose: 3 ml Alprazolam (Xanax) 0.25 mg PO Q12 PRN PRN Reason: Anxiety Stop: 07/01/16 15:23 Last Admin: 06/25/16 10:27 Dose: 0.25 mg Anastrozole (Arimidex 1 Mg Tab) 1 mg PO DAILY [facility] Last Admin: 06/25/16 08:17 Dose: 1 mg Aspirin (Ecotrin) 81 mg PO DAILY [facility] Last Admin: 06/25/16 08:09 Dose: 81 mg Baclofen (Lioresal) 10 mg PO HS [facility] Last Admin: 06/24/16 22:04 Dose: 10 mg Capsaicin (Trixaicin Cream) 1 applic TOP BID [facility] Last Admin: 06/25/16 08:12 Dose: 1 applic Enoxaparin Sodium (Lovenox) 40 mg SC DAILY [facility] PRN Reason: Protocol Last Admin: 06/25/16 08:18 Dose: 40 mg Gabapentin (Neurontin) 600 mg PO Q8H [facility] Last Admin: 06/25/16 13:14 Dose: 600 mg Guaifenesin (Mucinex La) 600 mg PO Q12 [facility] Meropenem 1 gm/ Sodium (Chloride) 100 mls @ 100 mls/hr IVPB Q12@0800,2000 [facility] Last Admin: 06/25/16 08:17 Dose: 100 mls/hr Hydrocortisone Sodium Succinate 100 mg/ Sodium Chloride 100 mls @ 100 mls/hr IV Q8 [facility] Last Admin: 06/25/16 08:18 Dose: 100 mls/hr Piperacillin Sod/Tazobactam (Sod 3.375 gm/ Sodium Chloride) 100 mls @ 100 mls/ hr IVPB Q8 [facility] Last Admin: 06/25/16 08:15 Dose: 100 mls/hr Clindamycin Phosphate 600 mg/ (Sodium Chloride) 104 mls @ 104 mls/hr IVPB Q8 [facility] Last Admin: 06/25/16 08:09 Dose: 104 mls/hr Lactobacillus Acidophilus (Bacid Acidophilus) 1 cap PO BID [facility] Last Admin: 06/25/16 08:11 Dose: 1 cap Loperamide HCl (Imodium) 2 mg PO QID PRN PRN Reason: Diarrhea Last Admin: 06/25/16 13:13 Dose: 2 mg Multi-Ingredient Cream (Hydrocerin Cream) 1 applic TOP BID [facility] Last Admin: 06/25/16 08:12 Dose: 1 applic Multivitamins/Minerals (Therapeutic-M Tab) 1 tab PO DAILY [facility] Last Admin: 06/25/16 08:18 Dose: 1 tab Oxycodone/Acetaminophen (Percocet 5/325 Mg Tab) 1 tab PO Q6 PRN PRN Reason: Pain, moderate (4-7) Stop: 06/27/16 03:57 Last Admin: 06/24/16 04:10 Dose: 1 tab Pantoprazole Sodium (Protonix Ec Tab) 40 mg PO DAILY [facility] Last Admin: 06/25/16 08:18 Dose: 40 mg Senna/Docusate Sodium (Senokot S 50 Mg-8.6 Mg) 1 tab PO HS [facility] Last Admin: 06/11/16 21:19 Dose: 1 tab Spironolactone (Aldactone) 12.5 mg PO BID [facility] Last Admin: 06/25/16 10:27 Dose: Not Given Theophylline (Uniphyl) 600 mg PO DAILY [facility] Last Admin: 06/25/16 08:15 Dose: 600 mg Verapamil HCl (Calan Tab) 40 mg PO Q8H [facility] Last Admin: 06/25/16 13:14 Dose: 40 mg Zolpidem Tartrate (Ambien) 5 mg PO HS PRN PRN Reason: Sleep Last Admin: 06/24/16 22:09 Dose: 5 mg - Labs Labs: 06/25/16 06:00 06/25/16 06:00 PT 11.0 SECONDS (9.6-11.2) 06/09/16 04:10 INR 1.06 (0.92-1.08) 06/09/16 04:10 APTT 27.5 SECONDS (23.3-32.5) 06/03/16 22:33 Assessment and Plan (1) Acute bronchitis with chronic obstructive pulmonary disease (COPD) Status: Acute (2) Hyperthyroidism Status: Chronic (3) Abscess Status: Acute
--- NOTE | 2016-06-25 15:25 | CP.PCM.PN ---
Subjective - Date & Time of Evaluation Date of Evaluation: 06/25/16 Time of Evaluation: 15:23 - Subjective Subjective: Spoke with Dr Ambrose ([facility] surgeon).ENT has been called for evaluation as well to evaluate possibility of parotid pathology. Objective - Vital Signs/Intake and Output Vital Signs (last 24 hours): Temp Pulse Resp BP Pulse Ox 98.5 F 107 H 16 97/52 L 98 06/25/16 12:00 06/25/16 12:00 06/25/16 12:00 06/25/16 12:00 06/25/16 12:00 Intake and Output: 06/25/16 06/25/16 11:59 23:59 Intake Total 300 Balance 300 - Medications Medications: Current Medications Acetaminophen (Tylenol 325mg Tab) 650 mg PO Q6 PRN PRN Reason: Pain, moderate (4-7) Last Admin: 06/22/16 10:29 Dose: 650 mg Acetylcysteine (Mucomyst 10% 4ml) 2 ml IH RBID [facility] Last Admin: 06/25/16 08:59 Dose: 2 ml Albuterol Sulfate (Albuterol 0.083% Inhal Aby (2.5 Mg/3 Ml) Ud) 2.5 mg INH RQ4 PRN PRN Reason: Shortness of Breath Last Admin: 06/22/16 18:21 Dose: 2.5 mg Albuterol/Ipratropium (Duoneb 3 Mg/0.5 Mg (3 Ml) Ud) 3 ml INH RQID [facility] Last Admin: 06/25/16 11:56 Dose: 3 ml Alprazolam (Xanax) 0.25 mg PO Q12 PRN PRN Reason: Anxiety Stop: 07/01/16 15:23 Last Admin: 06/25/16 10:27 Dose: 0.25 mg Anastrozole (Arimidex 1 Mg Tab) 1 mg PO DAILY [facility] Last Admin: 06/25/16 08:17 Dose: 1 mg Aspirin (Ecotrin) 81 mg PO DAILY [facility] Last Admin: 06/25/16 08:09 Dose: 81 mg Baclofen (Lioresal) 10 mg PO HS [facility] Last Admin: 06/24/16 22:04 Dose: 10 mg Capsaicin (Trixaicin Cream) 1 applic TOP BID [facility] Last Admin: 06/25/16 08:12 Dose: 1 applic Enoxaparin Sodium (Lovenox) 40 mg SC DAILY [facility] PRN Reason: Protocol Last Admin: 06/25/16 08:18 Dose: 40 mg Gabapentin (Neurontin) 600 mg PO Q8H [facility] Last Admin: 06/25/16 13:14 Dose: 600 mg Guaifenesin (Mucinex La) 600 mg PO Q12 [facility] Meropenem 1 gm/ Sodium (Chloride) 100 mls @ 100 mls/hr IVPB Q12@0800,2000 [facility] Last Admin: 06/25/16 08:17 Dose: 100 mls/hr Hydrocortisone Sodium Succinate 100 mg/ Sodium Chloride 100 mls @ 100 mls/hr IV Q8 [facility] Last Admin: 06/25/16 08:18 Dose: 100 mls/hr Piperacillin Sod/Tazobactam (Sod 3.375 gm/ Sodium Chloride) 100 mls @ 100 mls/ hr IVPB Q8 [facility] Last Admin: 06/25/16 08:15 Dose: 100 mls/hr Clindamycin Phosphate 600 mg/ (Sodium Chloride) 104 mls @ 104 mls/hr IVPB Q8 [facility] Last Admin: 06/25/16 08:09 Dose: 104 mls/hr Lactobacillus Acidophilus (Bacid Acidophilus) 1 cap PO BID [facility] Last Admin: 06/25/16 08:11 Dose: 1 cap Loperamide HCl (Imodium) 2 mg PO QID PRN PRN Reason: Diarrhea Last Admin: 06/25/16 13:13 Dose: 2 mg Multi-Ingredient Cream (Hydrocerin Cream) 1 applic TOP BID [facility] Last Admin: 06/25/16 08:12 Dose: 1 applic Multivitamins/Minerals (Therapeutic-M Tab) 1 tab PO DAILY [facility] Last Admin: 06/25/16 08:18 Dose: 1 tab Oxycodone/Acetaminophen (Percocet 5/325 Mg Tab) 1 tab PO Q6 PRN PRN Reason: Pain, moderate (4-7) Stop: 06/27/16 03:57 Last Admin: 06/24/16 04:10 Dose: 1 tab Pantoprazole Sodium (Protonix Ec Tab) 40 mg PO DAILY [facility] Last Admin: 06/25/16 08:18 Dose: 40 mg Senna/Docusate Sodium (Senokot S 50 Mg-8.6 Mg) 1 tab PO HS [facility] Last Admin: 02/03/17 21:19 Dose: 1 tab Spironolactone (Aldactone) 12.5 mg PO BID [facility] Last Admin: 06/25/16 10:27 Dose: Not Given Theophylline (Uniphyl) 600 mg PO DAILY [facility] Last Admin: 06/25/16 08:15 Dose: 600 mg Verapamil HCl (Calan Tab) 40 mg PO Q8H [facility] Last Admin: 06/25/16 13:14 Dose: 40 mg Zolpidem Tartrate (Ambien) 5 mg PO HS PRN PRN Reason: Sleep Last Admin: 06/24/16 22:09 Dose: 5 mg - Labs Labs: 06/25/16 06:00 06/25/16 06:00 PT 11.0 SECONDS (9.6-11.2) 06/09/16 04:10 INR 1.06 (0.92-1.08) 06/09/16 04:10 APTT 27.5 SECONDS (23.3-32.5) 06/03/16 22:33 Assessment and Plan (1) Acute bronchitis with chronic obstructive pulmonary disease (COPD) Status: Acute (2) Hyperthyroidism Status: Chronic (3) Abscess Status: Acute
--- NOTE | 2016-06-25 19:24 | CON ---
DATE: 06/25/2016 REASON FOR CONSULTATION: Right facial swelling. HISTORY: This is a 66-year-old female with a 3-week history of right facial swelling with pain, whic h happened right after a dental procedure. The pain is constant, moderate in intensity, and on the r ight, as well as the swelling. PAST MEDICAL HISTORY: As noted on the chart by me. MEDICATIONS: As noted on the chart by me. PHYSICAL EXAMINATION: HEAD: Atraumatic, normocephalic. FACE: There is edema along the right mandible. Good facial movements bilaterally. CONSTITUTIONAL: Well-developed, well-nourished. COMMUNICATION: Communicates very appropriately. EXTERNAL NOSE AND EARS: No masses, no lesions, no erythema, no edema. INTERNAL NOSE: Deviated septum, no masses, no lesions, no erythema, no edema. ORAL CAVITY/OROPHARYNX: No masses, no lesions, no erythema, no edema. NECK: Supple. LIPS: No masses, no lesions, no erythema, no edema. THYROID: No thyromegaly, no goiter. LYMPH NODES: No lymphadenopathy of the neck. CAT scan was reviewed by me; is suggestive of a dental infection. No evidence of parotitis. ASSESSMENT: 1. Deviated septum. 2. Dental abscess. RECOMMENDATION: Oral surgery followup. Frandy Priest MD cc: [id number] TT: 06/25/2016 19:23:51 Confirmation # [id number] Dictation # [id number] [place]
[2016-06-25] MEDS: guaiFENesin 600 mg ER Tab PO SCH (20:14)
[2016-06-26] MEDS: Clindamycin 600 MG in Sodium Chloride 0.9% 100 ML IVPB SCH ×3 (00:01→17:00)
[2016-06-26] MEDS: Piperacillin/Tazobact 3.375 GM in Sodium Chloride 0.9% 100 ML IVPB SCH ×3 (01:16→17:33)
[2016-06-26] MEDS: Hydrocortisone- 100 MG in Sodium Chloride 0.9% 100 ML IV SCH ×3 (02:00→17:04)
[2016-06-26 06:12] LABS: HEMATOCRIT 37.3 % (34.0-47.0); MEAN CELL VOLUME 82.7 fl (81.0-99.0); MEAN CORPUSCULAR HEMOGLOBIN 24.4 pg (27.0-31.0); MEAN CORPUSCULAR HGB CONC 29.5 g/dL (33.0-37.0); WHITE BLOOD COUNT 9.3 K/uL (4.8-10.8)
[2016-06-26 06:59] LABS: BLOOD UREA NITROGEN 21 mg/dl (7-17); CALCIUM 7.8 mg/dL (8.4-10.2); CARBON DIOXIDE 36 mmol/L (22-30); CHLORIDE 100 mmol/L (98-107); GFR AFRICAN-AMERICAN > 60; GLUCOSE,RANDOM 105 mg/dL (65-105); POTASSIUM 3.4 MMOL/L (3.6-5.0); SODIUM 143 mmol/l (132-148)
--- NOTE | 2016-06-26 08:02 | CP.PCM.PN ---
Subjective - Date & Time of Evaluation Date of Evaluation: 06/26/16 Time of Evaluation: 08:00 - Subjective Subjective: I have personally seen and evaluated patient bedside. Feeling a little better . still complains of right facial swelling with tenderness and some discomfort when opening her mouth. No acute issues overnight. Still with on and off episodes of soft bowel movements.Tachycardic HR 102, afebrile, o2 Sat 96 5. Becomes more tachypneic especially when trying to talk On High flow O2 via NC 30 LPM 30 % . With increased edema to lower extremities bilaterally 3 + Objective - Vital Signs/Intake and Output Vital Signs (last 24 hours): Temp Pulse Resp BP Pulse Ox 97.3 F L 100 H 14 122/78 98 06/26/16 06:00 06/26/16 06:00 06/26/16 06:00 06/26/16 06:00 06/26/16 06:00 Intake and Output: 06/26/16 06/26/16 06:59 18:59 Intake Total 574 Output Total 450 Balance 124 - Medications Medications: Current Medications Acetaminophen (Tylenol 325mg Tab) 650 mg PO Q6 PRN PRN Reason: Pain, moderate (4-7) Last Admin: 06/22/16 10:29 Dose: 650 mg Acetylcysteine (Mucomyst 10% 4ml) 2 ml IH RBID [facility] Last Admin: 06/25/16 19:28 Dose: 2 ml Albuterol Sulfate (Albuterol 0.083% Inhal Aby (2.5 Mg/3 Ml) Ud) 2.5 mg INH RQ4 PRN PRN Reason: Shortness of Breath Last Admin: 06/22/16 18:21 Dose: 2.5 mg Albuterol/Ipratropium (Duoneb 3 Mg/0.5 Mg (3 Ml) Ud) 3 ml INH RQID [facility] Last Admin: 06/25/16 19:28 Dose: 3 ml Alprazolam (Xanax) 0.25 mg PO Q12 PRN PRN Reason: Anxiety Stop: 07/01/16 15:23 Last Admin: 06/25/16 22:58 Dose: 0.25 mg Anastrozole (Arimidex 1 Mg Tab) 1 mg PO DAILY [facility] Last Admin: 06/25/16 08:17 Dose: 1 mg Aspirin (Ecotrin) 81 mg PO DAILY [facility] Last Admin: 06/25/16 08:09 Dose: 81 mg Baclofen (Lioresal) 10 mg PO HS [facility] Last Admin: 06/25/16 22:00 Dose: 10 mg Enoxaparin Sodium (Lovenox) 40 mg SC DAILY [facility] PRN Reason: Protocol Last Admin: 06/25/16 08:18 Dose: 40 mg Gabapentin (Neurontin) 600 mg PO Q8H [facility] Last Admin: 06/26/16 05:33 Dose: 600 mg Guaifenesin (Mucinex La) 600 mg PO Q12 [facility] Last Admin: 06/25/16 20:14 Dose: 600 mg Meropenem 1 gm/ Sodium (Chloride) 100 mls @ 100 mls/hr IVPB Q12@0800,2000 [facility] Last Admin: 06/25/16 19:52 Dose: 100 mls/hr Hydrocortisone Sodium Succinate 100 mg/ Sodium Chloride 100 mls @ 100 mls/hr IV Q8 [facility] Last Admin: 06/26/16 02:00 Dose: 100 mls/hr Piperacillin Sod/Tazobactam (Sod 3.375 gm/ Sodium Chloride) 100 mls @ 100 mls/ hr IVPB Q8 [facility] Last Admin: 06/26/16 01:16 Dose: 100 mls/hr Clindamycin Phosphate 600 mg/ (Sodium Chloride) 104 mls @ 104 mls/hr IVPB Q8 [facility] Last Admin: 06/26/16 00:01 Dose: 104 mls/hr Lactobacillus Acidophilus (Bacid Acidophilus) 1 cap PO BID [facility] Last Admin: 06/25/16 16:10 Dose: 1 cap Multi-Ingredient Cream (Hydrocerin Cream) 1 applic TOP BID [facility] Last Admin: 06/25/16 17:24 Dose: 1 applic Multivitamins/Minerals (Therapeutic-M Tab) 1 tab PO DAILY [facility] Last Admin: 06/25/16 08:18 Dose: 1 tab Oxycodone/Acetaminophen (Percocet 5/325 Mg Tab) 1 tab PO Q6 PRN PRN Reason: Pain, moderate (4-7) Stop: 06/27/16 03:57 Last Admin: 06/24/16 04:10 Dose: 1 tab Pantoprazole Sodium (Protonix Ec Tab) 40 mg PO DAILY [facility] Last Admin: 06/25/16 08:18 Dose: 40 mg Spironolactone (Aldactone) 12.5 mg PO BID [facility] Last Admin: 06/25/16 17:22 Dose: 12.5 mg Theophylline (Uniphyl) 600 mg PO DAILY [facility] Last Admin: 06/25/16 08:15 Dose: 600 mg Verapamil HCl (Calan Tab) 40 mg PO Q8H [facility] Last Admin: 06/26/16 05:33 Dose: 40 mg Zolpidem Tartrate (Ambien) 5 mg PO HS PRN PRN Reason: Sleep Last Admin: 06/24/16 22:09 Dose: 5 mg - Labs Labs: 06/26/16 04:00 06/26/16 04:00 PT 11.0 SECONDS (9.6-11.2) 06/09/16 04:10 INR 1.06 (0.92-1.08) 06/09/16 04:10 APTT 27.5 SECONDS (23.3-32.5) 06/03/16 22:33 - Constitutional Appears: Chronically Ill, Other (tachypneic while talking ) - Head Exam Additional comments: right facial swelling just above the mandible , soft and fluctuating - Eye Exam Eye Exam: EOMI, Normal appearance, PERRL Pupil Exam: NORMAL ACCOMODATION - ENT Exam ENT Exam: Mucous Membranes Moist, Normal Exam - Neck Exam Neck Exam: Full ROM, Normal Inspection - Respiratory Exam Respiratory Exam: Decreased Breath Sounds (bibasilar with rales), Prolonged Expiratory Phase. absent: Rhonchi, Wheezes - Cardiovascular Exam Cardiovascular Exam: Tachycardia. absent: JVD - GI/Abdominal Exam GI & Abdominal Exam: Soft, Normal Bowel Sounds. absent: Distended, Guarding, Tenderness, Rebound - Rectal Exam Rectal Exam: Deferred - Extremities Exam Extremities Exam: Pedal Edema (3 + to LE , lymphedema to RUE ) Additional comments: pulses present - Neurological Exam Neurological Exam: Alert, Awake, CN II-XII Intact, Oriented x3 - Psychiatric Exam Psychiatric exam: Normal Affect, Normal Mood - Skin Skin Exam: Dry, Pallor, Warm Assessment and Plan - Assessment and Plan (Free Text) Assessment: 66 y/o female PMH COPD, bilateral breast CA s/p chemo and radiation 8 years ago with bone mets to shoulder (s/p humerus resection), HTN, hyperthyroidism presented with 2 week history of worsening bilateral lower extremity swelling and weakness, unable to get herself up to her walker. Patient has mild dyspnea at baseline. She also came with a large right facial swelling for almost 2 weeks and was taking PO antibiotics prescribed by her dentist. Patient was admitted for generalized weakness , Hyponatremia and facial abscess. She was started on IV Clinda and Zosyn for facial abscess and Lasix IV with fluid restriction for LE edema. At present she is afebrile, Maxillofacial Ct showed possible abscess accumulation and patient had purulent discharge from an opening in oral mucosa. Evaluated by maxillofacial surgeon and underwent Incision and drainage of abscess. At present with no positive cultures. Bone scan showed possible osteomyelitis so she was started on Vancomycin and Zosyn IV then changed to Vanco and Meropenem (4-6 weeks as per ID recommendations). During this hospitalization noted to have increased dyspnea at rest and more so with minimal activity, decreased air entry bilaterally and increased work of breathing. She was started on high flow O2, Higher doses of theophylline and IV hydrocortisone. CTA chest and LE doppler showed no DVT. She was transferred to ICU for close monitoring for tachypnea and tachycardia. At present, still on High Flow Oxygen. Drainage of facial/buccal mass done by IR and 24ml yellow fluid obtained. 1. Acute on Chronic Respiratory Insufficiency with hypercapnea Most likely secondary to COPD exacerbation with acute bronchitis and CHF exacerbation Still on high flow O2 via NC 30 L/min on FIO2 30 % with good oxygenation CT chest showed no PE and improved bilateral pleural effusion after diuresis LE doppler showed no DVT Diuretics changed to Aldactone bec of hypokalemia, Lasix prn Continue Duonebs Continue Chest PT , Coughalator and Acapella therapy pulmonary consulted : Dr. Benz who is following pt closely On Hydrocortisone to 100 mg IV Q8 and Theophylline to 600 mg Po daily started on very low dose Xanax 0.25 bid prn as this seem to help when pt gets very anxious, tachypenic and tachycardic 2. Facial abscess with mandibular Osteomyelitis s/p drainage of abscess Maxillofacial Ct showed :Large enhancing wall collection seen around the mid and upper right mandibular ramus and mandibular neck extending anteriorly and seen medial and lateral to the right zygomatic arch. This collection contains foci of air. The density and the appearance of this collection suggestive of abscess formation. The collection is seen anterior to the right parotid gland and extending medially to the posterior right oral cavity. [id number] right maxillary sinus mucosal thickening and small air-fluid level. Partial opacification of both mastoids suggestive of mastoiditis. ID on consult: Dr Obrien. Recommended IV abx 6 wks total ( # ) OMFS Dr. Ambrose consulted and patient underwent Incision and drainage on 06/09 All cultures with no growth so far pathology report showed inflammatory cells, no malignancy Nuclear Bone Scan suggestive of osteomyelitis Tunneled central line placed for fci IV antibiotics- this will need to be d/c by IR after IV abx treatment is completed ( as discussed with Dr Gunter - pt was informed of need to see IR after abx tx) Antibiotics changed 06/24 : IV Clinda, Zosyn and Meropenem Pt underwent drainage of facial collection by IR on 06/24 - 24 ml yellow fluid obtained - ENT eval with Dr. Priest appreciated.He recommends maxillofacial evaluation for dental abscess . It does not appear to be any parotitis. Dr Ambrose reconsulted 3. Bilateral LE edema sec to CHF exacerbation with diastolic dysfxn worsened Le edema bilateral 3 + Echo showed EF 40-45 % and dilated RV continue fluid restriction Diuretics changed to Aldactone 12.5 mg bid due to hypokalemia Lasix prn Promote ambulation CT chest showed bilateral small to moderate pleural effusion that improved after diuresis Podiatry consulted for dorsum pain and wound consult for LE abrasions 4.Hypokalemia Most likely diuretic induced replete with Kcl 5.Hyponatremia, resolved most likely secondary to solute depletion and infection Continue fluid restriction 6.Hx breast ca, bilateral stable, s/p bilateral mastectomy continue arimidex 7.Hypertension on the low side d/c Metoprolol Decreased Verapamil to 40 mg TID 8. Hypothyroidism patient has history of hyperthyroidism and was on Methimazole - patient has developed hypothyroidism , Methimazole was d/c and she was started on Po levothyroxine- will d/c levothyroxine as TSH went down TSH 41 - now down to 0.24 Endo consulted - Dr Vu following pt 9. Anemia, chronic dis monitor anemia work up showed depleted iron stores Venofer IV given s/p 2 units PRBC transfusion 10.DVT ppx lovenox
[2016-06-26] MEDS ORDERED: Potassium Chloride 10 mEq ER Tab PO ONE (08:16)
[2016-06-26] MEDS: Enoxaparin 40 mg Syringe SC SCH (08:22)
[2016-06-26] MEDS: Lactobacillus Acidophilus 500 MU Cap PO SCH ×2 (08:25→16:59)
[2016-06-26] MEDS: Acetylcysteine 10% 4 ML IH SCH ×2 (08:30→19:59)
[2016-06-26] MEDS: Albuterol-Ipratrop 3 mg / 0.5 (3 ml) UD INH SCH ×4 (08:30→19:59)
[2016-06-26] MEDS: guaiFENesin 600 mg ER Tab PO SCH ×2 (08:31→20:47)
[2016-06-26] MEDS: Pantoprazole 40 mg EC Tab PO SCH (08:31)
[2016-06-26] MEDS: Meropenem 1 GM in Sodium Chloride 0.9% 100 ML IVPB SCH ×2 (08:31→20:41)
[2016-06-26] MEDS: Multivitamin With Minerals Tab PO SCH (08:32)
[2016-06-26] MEDS: THEOPHYLLINE 400 MG T24(UNIPHYL) PO SCH (08:33)
[2016-06-26] MEDS: Hydrocerin CREAM TOP SCH ×3 (09:36→17:03)
--- NOTE | 2016-06-26 09:50 | CP.PCM.PN ---
Subjective - Date & Time of Evaluation Date of Evaluation: 06/26/16 Time of Evaluation: 09:50 - Subjective Subjective: Patient seen during morning rounds and the intensive care unit. Interval events and ENT consultation reviewed. There is continued mild tachycardia and low normal blood pressure values. She does remain afebrile and well oxygenated. She continues to receive supplemental oxygen via high flow nasal cannula at 30 L /m and 30%. She continues to have facial swelling on the right which is very fluctuant on palpation. Initial culture of abscess aspiration showed many polys and no organisms on Gram stain and is culture negative at 24 hours. She continues to have shortness of breath with conversation despite using both beta adrenergic and muscarinic agents by nebulizer. She continues to receive hydrocortisone 100 mg every 8 hours and theophylline at 600 mg per day. She continues to have issues with hypokalemia despite the addition of Aldactone. There is continued edema of the right upper extremity secondary to lymphedema as well as thrombus in the cephalic vein. Breath sounds are diminished bilaterally and there are scattered sonorous and sibilant rhonchi in both lungs. No audible wheezing is appreciated but the expiratory phase remain slightly prolonged. There is some dependent edema as well as edema in the right upper extremity. No cyanosis. Awaiting revisit from OMF surgery later today. Continue current antibiotic regimen. Discussed with ID this morning. Continue current aerosol therapy and parenteral corticosteroids. Potassium supplementation as needed. We'll attempt to raise Aldactone to 25 mg twice a day. Objective - Vital Signs/Intake and Output Vital Signs (last 24 hours): Temp Pulse Resp BP Pulse Ox 98.2 F 111 H 18 103/77 99 06/26/16 08:00 06/26/16 08:00 06/26/16 08:32 06/26/16 08:00 06/26/16 08:00 Intake and Output: 06/25/16 06/26/16 23:59 11:59 Intake Total 1400 424 Output Total 600 450 Balance 800 -26 - Medications Medications: Current Medications Acetaminophen (Tylenol 325mg Tab) 650 mg PO Q6 PRN PRN Reason: Pain, moderate (4-7) Last Admin: 06/22/16 10:29 Dose: 650 mg Acetylcysteine (Mucomyst 10% 4ml) 2 ml IH RBID [facility] Last Admin: 06/26/16 08:30 Dose: 2 ml Albuterol Sulfate (Albuterol 0.083% Inhal Aby (2.5 Mg/3 Ml) Ud) 2.5 mg INH RQ4 PRN PRN Reason: Shortness of Breath Last Admin: 06/22/16 18:21 Dose: 2.5 mg Albuterol/Ipratropium (Duoneb 3 Mg/0.5 Mg (3 Ml) Ud) 3 ml INH RQID [facility] Last Admin: 06/26/16 08:30 Dose: 3 ml Alprazolam (Xanax) 0.25 mg PO Q12 PRN PRN Reason: Anxiety Stop: 07/01/16 15:23 Last Admin: 06/25/16 22:58 Dose: 0.25 mg Anastrozole (Arimidex 1 Mg Tab) 1 mg PO DAILY [facility] Last Admin: 06/26/16 08:24 Dose: 1 mg Aspirin (Ecotrin) 81 mg PO DAILY [facility] Last Admin: 06/25/16 08:09 Dose: 81 mg Baclofen (Lioresal) 10 mg PO HS [facility] Last Admin: 06/25/16 22:00 Dose: 10 mg Enoxaparin Sodium (Lovenox) 40 mg SC DAILY [facility] PRN Reason: Protocol Last Admin: 06/26/16 08:22 Dose: 40 mg Gabapentin (Neurontin) 600 mg PO Q8H [facility] Last Admin: 06/26/16 05:33 Dose: 600 mg Guaifenesin (Mucinex La) 600 mg PO Q12 [facility] Last Admin: 06/26/16 08:31 Dose: 600 mg Meropenem 1 gm/ Sodium (Chloride) 100 mls @ 100 mls/hr IVPB Q12@0800,2000 [facility] Last Admin: 06/26/16 08:31 Dose: 100 mls/hr Hydrocortisone Sodium Succinate 100 mg/ Sodium Chloride 100 mls @ 100 mls/hr IV Q8 [facility] Last Admin: 06/26/16 08:46 Dose: 100 mls/hr Piperacillin Sod/Tazobactam (Sod 3.375 gm/ Sodium Chloride) 100 mls @ 100 mls/ hr IVPB Q8 [facility] Last Admin: 06/26/16 09:39 Dose: 100 mls/hr Clindamycin Phosphate 600 mg/ (Sodium Chloride) 104 mls @ 104 mls/hr IVPB Q8 [facility] Last Admin: 06/26/16 08:27 Dose: 104 mls/hr Lactobacillus Acidophilus (Bacid Acidophilus) 1 cap PO BID [facility] Last Admin: 06/26/16 08:25 Dose: 1 cap Multi-Ingredient Cream (Hydrocerin Cream) 1 applic TOP BID [facility] Last Admin: 06/26/16 09:38 Dose: 1 applic Multivitamins/Minerals (Therapeutic-M Tab) 1 tab PO DAILY [facility] Last Admin: 06/26/16 08:32 Dose: 1 tab Oxycodone/Acetaminophen (Percocet 5/325 Mg Tab) 1 tab PO Q6 PRN PRN Reason: Pain, moderate (4-7) Stop: 06/27/16 03:57 Last Admin: 06/24/16 04:10 Dose: 1 tab Pantoprazole Sodium (Protonix Ec Tab) 40 mg PO DAILY [facility] Last Admin: 06/26/16 08:31 Dose: 40 mg Spironolactone (Aldactone) 12.5 mg PO BID [facility] Last Admin: 06/26/16 08:23 Dose: 12.5 mg Theophylline (Uniphyl) 600 mg PO DAILY [facility] Last Admin: 06/26/16 08:33 Dose: 600 mg Verapamil HCl (Calan Tab) 40 mg PO Q8H [facility] Last Admin: 06/26/16 05:33 Dose: 40 mg Zolpidem Tartrate (Ambien) 5 mg PO HS PRN PRN Reason: Sleep Last Admin: 06/24/16 22:09 Dose: 5 mg - Labs Labs: 06/26/16 04:00 06/26/16 04:00 PT 11.0 SECONDS (9.6-11.2) 06/09/16 04:10 INR 1.06 (0.92-1.08) 06/09/16 04:10 APTT 27.5 SECONDS (23.3-32.5) 06/03/16 22:33 Assessment and Plan (1) Acute bronchitis with chronic obstructive pulmonary disease (COPD) Status: Acute (2) Hyperthyroidism Status: Chronic (3) Abscess Status: Acute
--- NOTE | 2016-06-26 13:39 | PN ---
DATE: 06/26/2016 In ICU, room 434. SUBJECTIVE: This is a 66-year-old female with recent overt hypothyroidism on the background of [facility] for hyperthyroidism in the outpatient. She has since then improved clinically and meta bolically with the initiation of IV steroid therapy. She is currently on hydrocortisone at 100 every 8 hours as ordered. The latest chemistries showed a BUN of 21, sodium 143, potassium 3.6, chloride 100, CO2 36, glucose 0.3. At this time, we will continue the basal regular insulin coverage that is given at a very minimal dose as ordered. We will discontinue the levothyroxine ordered and allow to adjust ____ equilibration as indicated. We will obtain serial thyroid studies and adjust the dose ac cordingly. Polly Vu MD cc: [id number] TT: 06/26/2016 13:39:20 Confirmation # [id number] Dictation # [id number]
--- NOTE | 2016-06-26 16:13 | CP.CCUPN ---
CCU Subjective - Physician Review Events Since Last Encounter (Free Text): 06/26/16 16:04 alert and following commands. right facial swelling stil persistent. CCU Objective - Vital Signs / Intake & Output Vital Signs (Last 4 hours): Vital Signs Pulse Resp BP Pulse Ox 06/26/16 14:00 116 H 22 116/92 H 97 06/26/16 13:52 116 H 116/92 H Intake and Output (Last 8hrs): Intake & Output 06/26/16 06/26/16 06/26/16 06:59 14:59 22:59 Intake Total 414 780 Output Total 450 Balance -36 780 Weight 124 lb 8 oz Intake: IV 14 20 Intake, Piggyback 300 300 Oral 100 460 Output: Urine 450 Urethral (Gutierrez) 450 Other: # Bowel Movements 1 1 - Physical Exam Head: Positive for: Atraumatic, Swelling Pupils: Positive for: PERRL Conjunctiva: Positive for: Normal Mouth: Positive for: Moist Mucous Membranes Pharnyx: Positive for: Normal Nose (External): Positive for: Atraumatic Neck: Positive for: Normal Range of Motion Respiratory/Chest: Positive for: Decreased Breath Sounds, Rhonchi Cardiovascular: Positive for: Tachycardic Abdomen: Positive for: Normal Bowel Sounds Upper Extremity: Positive for: Normal Inspection, NORMAL PULSES, Capillary Refill < 2s, Other (Rt arm swelling). Negative for: Cyanosis, Edema, Tenderness Lower Extremity: Positive for: Edema, NORMAL PULSES. Negative for: CALF TENDERNESS Neurological: Positive for: GCS=15, Speech Normal Skin: Positive for: Warm, Dry Psychiatric: Positive for: Alert, Oriented x 3 - Medications Active Medications: Active Medications Generic Name Dose Route Start Last Admin Trade Name Freq PRN Reason Stop Dose Admin Acetaminophen 650 mg 06/11/16 21:34 06/22/16 10:29 Tylenol 325mg Tab PO 650 mg Q6 PRN Administration Pain, moderate (4-7) Acetylcysteine 2 ml 06/22/16 20:00 06/26/16 08:30 Mucomyst 10% 4ml IH 2 ml RBID ANDREAS Administration Albuterol Sulfate 2.5 mg 06/07/16 09:55 06/22/16 18:21 Albuterol 0.083% Inhal Aby (2.5 Mg/3 Ml) Ud INH 2.5 mg RQ4 PRN Administration Shortness of Breath Albuterol/Ipratropium 3 ml 06/11/16 12:00 06/26/16 15:55 Duoneb 3 Mg/0.5 Mg (3 Ml) Ud INH 3 ml RQID ANDREAS Administration Alprazolam 0.25 mg 06/24/16 15:22 06/25/16 22:58 Xanax PO 07/01/16 15:23 0.25 mg Q12 PRN Administration Anxiety Anastrozole 1 mg 06/04/16 09:00 06/26/16 08:24 Arimidex 1 Mg Tab PO 1 mg DAILY ANDREAS Administration Aspirin 81 mg 06/04/16 09:00 06/26/16 13:53 Ecotrin PO 81 mg DAILY ANDREAS Administration Baclofen 10 mg 06/04/16 22:00 06/25/16 22:00 Lioresal PO 10 mg HS ANDREAS Administration Enoxaparin Sodium 40 mg 06/04/16 09:00 06/26/16 08:22 Lovenox SC 40 mg DAILY ANDREAS Administration Protocol Gabapentin 600 mg 06/24/16 22:00 06/26/16 13:54 Neurontin PO 600 mg Q8H ANDREAS Administration Guaifenesin 600 mg 06/25/16 21:00 06/26/16 08:31 Mucinex La PO 600 mg Q12 ANDREAS Administration Meropenem 1 gm/ Sodium 100 mls @ 100 mls/hr 06/19/16 08:00 06/26/16 08:31 Chloride IVPB 100 mls/hr Q12@0800,2000 ANDREAS Administration Hydrocortisone Sodium 100 mls @ 100 mls/hr 06/21/16 17:00 06/26/16 08:46 Succinate 100 mg/ Sodium IV 100 mls/hr Chloride Q8 ANDREAS Administration Piperacillin Sod/Tazobactam 100 mls @ 100 mls/hr 06/24/16 17:00 06/26/16 09:39 Sod 3.375 gm/ Sodium Chloride IVPB 100 mls/hr Q8 ANDREAS Administration Clindamycin Phosphate 600 mg/ 104 mls @ 104 mls/hr 06/24/16 09:15 06/26/16 08: 27 Sodium Chloride IVPB 104 mls/hr Q8 ANDREAS Administration Lactobacillus Acidophilus 1 cap 06/04/16 17:00 06/26/16 08:25 Bacid Acidophilus PO 1 cap BID ANDREAS Administration Multi-Ingredient Cream 1 applic 06/07/16 10:00 06/26/16 09:38 Hydrocerin Cream TOP 1 applic BID ANDREAS Administration Multivitamins/Minerals 1 tab 06/04/16 09:00 06/26/16 08:32 Therapeutic-M Tab PO 1 tab DAILY ANDREAS Administration Oxycodone/Acetaminophen 1 tab 06/24/16 03:56 06/24/16 04:10 Percocet 5/325 Mg Tab PO 06/27/16 03:57 1 tab Q6 PRN Administration Pain, moderate (4-7) Pantoprazole Sodium 40 mg 06/04/16 09:00 06/26/16 08:31 Protonix Ec Tab PO 40 mg DAILY ANDREAS Administration Spironolactone 25 mg 06/26/16 17:00 Aldactone PO BID ANDREAS Theophylline 600 mg 06/22/16 09:00 06/26/16 08:33 Uniphyl PO 600 mg DAILY ANDREAS Administration Verapamil HCl 40 mg 06/24/16 22:00 06/26/16 13:52 Calan Tab PO 40 mg Q8H ANDREAS Administration Zolpidem Tartrate 5 mg 06/14/16 22:14 06/24/16 22:09 Ambien PO 5 mg HS PRN Administration Sleep - Patient Studies Lab Studies: Microbiology Studies 06/24/16 Unknown Anaerobic Culture - Final Abscess - Abscess NO ANAEROBES ISOLATED. 06/24/16 16:00 Gram Stain - Final Other: Please Indicate Body Fluid Culture - Preliminary NO GROWTH AFTER 2 DAYS 06/24/16 11:45 Gram Stain - Final Abscess - Abscess Wound Culture - Preliminary Gram Positive Cocci Yeast Species Lab Studies 06/26/16 Range/Units 04:00 WBC 9.3 (4.8-10.8) K/uL RBC 4.52 (3.80-5.20) Mil/uL Hgb 11.0 L (12.0-16.0) g/dL Hct 37.3 (34.0-47.0) % MCV 82.7 D (81.0-99.0) fl MCH 24.4 L (27.0-31.0) pg MCHC 29.5 L (33.0-37.0) g/dL RDW 33.0 H (11.5-14.5) % Plt Count 318 (130-400) K/uL Sodium 143 (132-148) mmol/l Potassium 3.4 L (3.6-5.0) MMOL/L Chloride 100 (98-107) mmol/L Carbon Dioxide 36 H (22-30) mmol/L Anion Gap 10 (10-20) BUN 21 H (7-17) mg/dl Creatinine 0.3 L (0.7-1.2) mg/dL Est GFR ( Amer) > 60 Est GFR (Non-Af Amer) > 60 Random Glucose 105 (65-105) mg/dL Calcium 7.8 L (8.4-10.2) mg/dL Laboratory Results - last 24 hr 06/26/16 04:00 WBC 9.3 RBC 4.52 Hgb 11.0 L Hct 37.3 MCV 82.7 D MCH 24.4 L MCHC 29.5 L RDW 33.0 H Plt Count 318 Sodium 143 Potassium 3.4 L Chloride 100 Carbon Dioxide 36 H Anion Gap 10 BUN 21 H Creatinine 0.3 L Est GFR ( Amer) > 60 Est GFR (Non-Af Amer) > 60 Random Glucose 105 Calcium 7.8 L Review of Systems - Review of Systems All systems: reviewed and no additional remarkable complaints except - Respiratory Respiratory: Other Additional comments: SOB Critical Care Progress Note - Ventilator Checklist DVT Prophylaxis: Yes - Nutrition Nutrition: Nutrition Category Date Time Status Regular Diet [DIET] Diets 06/11/16 Dinner Active Assessment/Plan (1) Acute respiratory failure with hypoxia Assessment and plan: 66yo F. PMHx hyperthyroidism, COPD, p/w right mandibular abscess c/b acute exacerbation of chronic COPD. Neuro: no acute issues, alert and oriented x 3 Pulm: acute hypoxic respiratory failure, currently on high flow oxygen. Continue Duonebs, mucomyst nebs, guaifenesin po, theophylline po, hydrocortisone 100mg q8h. CV: hemodynamically stable. HTN controlled with verapamil and aldactone. Renal: hypokalemia, supplemented, continue aldactone bid. chronic metabolic alkalosis, unsure of etiology. sending urine chloride, aldosterone and renin activity. Giving Diamox and fluids, patient has been having frequent bowel movements, not diarrhea. Will call Renal consult. GI: regular diet with ensure supplementation ID: severe sepsis from right mandibular abscess with osteomyelitis, continue Zosyn, Meropenem, and clindamycin. DVT proph - lovenox GI proph - protonix Full code Critical Care time 35 minutes Current Visit: Yes Status: Acute
[2016-06-26 16:28] LABS: ABG ALLEN TEST YES; ARTERIAL BLOOD FLOW 30; ARTERIAL BLOOD GAS HCO3 38.1 mmol/L (21-28); ARTERIAL BLOOD GAS MODE HIGH FLOW LPM; ARTERIAL BLOOD GAS O2 CAPACITY 15.4 mL/dL (16-24); ARTERIAL BLOOD GAS O2 CONTENT 14.9 ML/dL (15-23); ARTERIAL BLOOD GAS PH 7.56 (7.35-7.45); ARTERIAL BLOOD GAS PO2 68 mm/Hg (80-100); ARTERIAL BLOOD HGB O2 SAT 93.8 % (95.0-98.0); CARBOXYHEMOGLOBIN 2.3 % (0.5-1.5); METHEMOGLOBIN 0.8 % (0.0-3.0)
[2016-06-27] MEDS: Clindamycin 600 MG in Sodium Chloride 0.9% 100 ML IVPB SCH ×3 (00:04→16:28)
[2016-06-27] MEDS: Hydrocortisone- 100 MG in Sodium Chloride 0.9% 100 ML IV SCH ×3 (00:05→17:12)
[2016-06-27] MEDS: Piperacillin/Tazobact 3.375 GM in Sodium Chloride 0.9% 100 ML IVPB SCH ×3 (00:06→16:27)
[2016-06-27 06:51] LABS: HEMATOCRIT 37.8 % (34.0-47.0); MEAN CELL VOLUME 81.5 fl (81.0-99.0); MEAN CORPUSCULAR HEMOGLOBIN 25.2 pg (27.0-31.0); MEAN CORPUSCULAR HGB CONC 30.9 g/dL (33.0-37.0); RED CELL DISTRIBUTION WIDTH 32.9 % (11.5-14.5); WHITE BLOOD COUNT 9.5 K/uL (4.8-10.8)
[2016-06-27 07:03] LABS: BLOOD UREA NITROGEN 15 mg/dl (7-17); CALCIUM 7.3 mg/dL (8.4-10.2); CHLORIDE 93 mmol/L (98-107); GFR AFRICAN-AMERICAN > 60; GLUCOSE,RANDOM 104 mg/dL (65-105); SODIUM 141 mmol/l (132-148)
[2016-06-27 07:10] LABS: CARBON DIOXIDE 39 mmol/L (22-30)
[2016-06-27] MEDS: Potassium CL 10 MEQ/50 ML 50 ML IVPB SCH ×4 (07:49→12:36)
[2016-06-27] MEDS: Meropenem 1 GM in Sodium Chloride 0.9% 100 ML IVPB SCH ×2 (08:11→20:01)
[2016-06-27] MEDS: Albuterol-Ipratrop 3 mg / 0.5 (3 ml) UD INH SCH ×4 (08:30→19:43)
[2016-06-27] MEDS: Acetylcysteine 10% 4 ML IH SCH ×2 (08:30→19:43)
[2016-06-27] MEDS: Enoxaparin 40 mg Syringe SC SCH (09:00)
[2016-06-27] MEDS: Lactobacillus Acidophilus 500 MU Cap PO SCH ×2 (09:04→16:34)
[2016-06-27] MEDS: Pantoprazole 40 mg EC Tab PO SCH (09:04)
[2016-06-27] MEDS: guaiFENesin 600 mg ER Tab PO SCH ×2 (09:06→21:19)
[2016-06-27] MEDS: Multivitamin With Minerals Tab PO SCH (09:16)
--- NOTE | 2016-06-27 09:17 | CP.PCM.PN ---
Subjective - Date & Time of Evaluation Date of Evaluation: 06/18/16 Time of Evaluation: 09:00 - Subjective Subjective: I have personally seen and examined patient bedside. Feeling a little better.Complaining of pain to right mandibular area extending to supra orbital and sub mandibular area. HR better controlled but still tachycardic on and off, HR 95 Saturating well , 96 % on high flow o2 via NC 30 LPM FIO2 30 % Tachypneic especially with minimal effort Remains afebrile, WBC 9 K Hgb 11 BP 121/75 I/O 1850 /2500 Objective - Vital Signs/Intake and Output Vital Signs (last 24 hours): Temp Pulse Resp BP Pulse Ox 98.1 F 95 H 18 121/75 96 06/27/16 08:00 06/27/16 08:00 06/27/16 08:20 06/27/16 08:00 06/27/16 08:00 Intake and Output: 06/27/16 06/27/16 06:59 18:59 Intake Total 680 10 Output Total 1600 Balance -920 10 - Medications Medications: Current Medications Acetaminophen (Tylenol 325mg Tab) 650 mg PO Q6 PRN PRN Reason: Pain, moderate (4-7) Last Admin: 06/22/16 10:29 Dose: 650 mg Acetylcysteine (Mucomyst 10% 4ml) 2 ml IH RBID [facility] Last Admin: 06/26/16 19:59 Dose: 2 ml Albuterol Sulfate (Albuterol 0.083% Inhal Aby (2.5 Mg/3 Ml) Ud) 2.5 mg INH RQ4 PRN PRN Reason: Shortness of Breath Last Admin: 06/22/16 18:21 Dose: 2.5 mg Albuterol/Ipratropium (Duoneb 3 Mg/0.5 Mg (3 Ml) Ud) 3 ml INH RQID [facility] Last Admin: 06/26/16 19:59 Dose: 3 ml Alprazolam (Xanax) 0.25 mg PO Q12 PRN PRN Reason: Anxiety Stop: 07/01/16 15:23 Last Admin: 06/26/16 21:18 Dose: 0.25 mg Anastrozole (Arimidex 1 Mg Tab) 1 mg PO DAILY [facility] Last Admin: 06/26/16 08:24 Dose: 1 mg Aspirin (Ecotrin) 81 mg PO DAILY [facility] Last Admin: 06/26/16 13:53 Dose: 81 mg Baclofen (Lioresal) 10 mg PO HS [facility] Last Admin: 06/26/16 21:17 Dose: 10 mg Enoxaparin Sodium (Lovenox) 40 mg SC DAILY [facility] PRN Reason: Protocol Last Admin: 06/26/16 08:22 Dose: 40 mg Gabapentin (Neurontin) 600 mg PO Q8H [facility] Last Admin: 06/27/16 06:28 Dose: 600 mg Guaifenesin (Mucinex La) 600 mg PO Q12 [facility] Last Admin: 06/26/16 20:47 Dose: 600 mg Meropenem 1 gm/ Sodium (Chloride) 100 mls @ 100 mls/hr IVPB Q12@0800,2000 [facility] Last Admin: 06/27/16 08:11 Dose: 100 mls/hr Hydrocortisone Sodium Succinate 100 mg/ Sodium Chloride 100 mls @ 100 mls/hr IV Q8 [facility] Last Admin: 06/27/16 00:05 Dose: 100 mls/hr Piperacillin Sod/Tazobactam (Sod 3.375 gm/ Sodium Chloride) 100 mls @ 100 mls/ hr IVPB Q8 [facility] Last Admin: 06/27/16 00:06 Dose: 100 mls/hr Clindamycin Phosphate 600 mg/ (Sodium Chloride) 104 mls @ 104 mls/hr IVPB Q8 [facility] Last Admin: 06/27/16 08:12 Dose: 104 mls/hr Potassium Chloride (Potassium Cl 10meq/50ml Sterile Water) 50 mls @ 50 mls/hr IVPB Q1 [facility] Stop: 06/27/16 11:59 Last Admin: 06/27/16 07:49 Dose: 50 mls/hr Lactobacillus Acidophilus (Bacid Acidophilus) 1 cap PO BID [facility] Last Admin: 06/26/16 16:59 Dose: 1 cap Multi-Ingredient Cream (Hydrocerin Cream) 1 applic TOP BID [facility] Last Admin: 06/26/16 17:03 Dose: 1 applic Multivitamins/Minerals (Therapeutic-M Tab) 1 tab PO DAILY [facility] Last Admin: 06/26/16 08:32 Dose: 1 tab Pantoprazole Sodium (Protonix Ec Tab) 40 mg PO DAILY [facility] Last Admin: 06/26/16 08:31 Dose: 40 mg Spironolactone (Aldactone) 25 mg PO BID [facility] Theophylline (Uniphyl) 600 mg PO DAILY [facility] Last Admin: 06/26/16 08:33 Dose: 600 mg Verapamil HCl (Calan Tab) 40 mg PO Q8H [facility] Last Admin: 06/27/16 06:27 Dose: 40 mg Zolpidem Tartrate (Ambien) 5 mg PO HS PRN PRN Reason: Sleep Last Admin: 06/27/16 00:44 Dose: 5 mg - Labs Labs: 06/27/16 05:30 06/27/16 05:30 PT 11.0 SECONDS (9.6-11.2) 06/09/16 04:10 INR 1.06 (0.92-1.08) 06/09/16 04:10 APTT 27.5 SECONDS (23.3-32.5) 06/03/16 22:33 - Constitutional Appears: Non-toxic, Chronically Ill - Head Exam Additional comments: right supramandibular , anterior to auricular area swelling 4x 4 cm , soft to touch, tender and fluctuating no erythema - Eye Exam Eye Exam: EOMI, Normal appearance, PERRL Pupil Exam: NORMAL ACCOMODATION - ENT Exam ENT Exam: Mucous Membranes Moist, Normal Exam - Neck Exam Neck Exam: Full ROM, Normal Inspection - Respiratory Exam Respiratory Exam: Accessory Muscle Use (especialy with minimal effort ), Decreased Breath Sounds (bibasilar ), Clear to Ausculation Bilateral, Prolonged Expiratory Phase. absent: Wheezes - Cardiovascular Exam Cardiovascular Exam: Tachycardia, +S1, +S2. absent: JVD - GI/Abdominal Exam GI & Abdominal Exam: Soft, Normal Bowel Sounds. absent: Distended, Guarding, Tenderness, Rebound - Rectal Exam Rectal Exam: Deferred - Extremities Exam Extremities Exam: Normal Capillary Refill, Pedal Edema (3 + bilateral to LE ). absent: Calf Tenderness, Tenderness - Back Exam Back Exam: NORMAL INSPECTION Additional comments: lymphedema to RUE - Neurological Exam Neurological Exam: Alert, Awake, CN II-XII Intact, Oriented x3 - Psychiatric Exam Psychiatric exam: Normal Affect - Skin Skin Exam: Dry, Pallor, Warm Assessment and Plan - Assessment and Plan (Free Text) Assessment: 66 y/o female PMH COPD, bilateral breast CA s/p chemo and radiation 8 years ago with bone mets to shoulder (s/p humerus resection), HTN, hyperthyroidism presented with 2 week history of worsening bilateral lower extremity swelling and weakness, unable to get herself up to her walker. Patient has mild dyspnea at baseline. She also came with a large right facial swelling for almost 2 weeks and was taking PO antibiotics prescribed by her dentist. Patient was admitted for generalized weakness , Hyponatremia and facial abscess. She was started on IV Clinda and Zosyn for facial abscess and Lasix IV with fluid restriction for LE edema. At present she is afebrile, Maxillofacial Ct showed possible abscess accumulation and patient had purulent discharge from an opening in oral mucosa. Evaluated by maxillofacial surgeon and underwent Incision and drainage of abscess. At present with no positive cultures. Bone scan showed possible osteomyelitis so she was started on Vancomycin and Zosyn IV then changed to Vanco and Meropenem (4-6 weeks as per ID recommendations). During this hospitalization noted to have increased dyspnea at rest and more so with minimal activity, decreased air entry bilaterally and increased work of breathing. She was started on high flow O2, Higher doses of theophylline and IV hydrocortisone. CTA chest and LE doppler showed no DVT. She was transferred to ICU for close monitoring for tachypnea and tachycardia. At present, still on High Flow Oxygen 30 LMP FIO2 30 % with good oxygenation but tachypneic . Drainage of right facial/buccal mass done by IR 06/24 and 24ml yellow fluid obtained.Still with swelling to right supra mandibular area. 1. Acute on Chronic Respiratory Insufficiency with hypercapnea Most likely secondary to COPD exacerbation with acute bronchitis and CHF exacerbation Still on high flow O2 via NC 30 L/min on FIO2 30 % with good oxygenation CT chest showed no PE and improved bilateral pleural effusion after diuresis LE doppler showed no DVT Diuretics changed to Aldactone bec of hypokalemia but stil hypokalemic monitor k closely and replace accordingly. Nephro consulted Lasix prn Continue Duonebs Continue Chest PT , Coughalator and Acapella therapy pulmonary consulted : Dr. Benz who is following pt closely On Hydrocortisone to 100 mg IV Q8 and Theophylline to 600 mg Po daily on very low dose Xanax 0.25 bid prn as this seem to help when pt gets very anxious, tachypenic and tachycardic 2. Facial abscess with mandibular Osteomyelitis s/p drainage of abscess Maxillofacial Ct showed :Large enhancing wall collection seen around the mid and upper right mandibular ramus and mandibular neck extending anteriorly and seen medial and lateral to the right zygomatic arch. This collection contains foci of air. The density and the appearance of this collection suggestive of abscess formation. The collection is seen anterior to the right parotid gland and extending medially to the posterior right oral cavity. [id number] right maxillary sinus mucosal thickening and small air-fluid level. Partial opacification of both mastoids suggestive of mastoiditis. ID on consult: Dr Obrien. Recommended IV abx 6 wks total ( # Day ) OMFS Dr. Ambrose consulted and patient underwent Incision and drainage on 06/09 All initial cultures were with no growth pathology report showed inflammatory cells, no malignancy Nuclear Bone Scan suggestive of osteomyelitis Tunneled central line placed for assessment nurse IV antibiotics- this will need to be d/c by IR after IV abx treatment is completed ( as discussed with Dr Gunter - pt was informed of need to see IR after abx tx) Antibiotics changed 06/24 : IV Clinda, Zosyn and Meropenem Pt underwent drainage of facial collection by IR on 06/24 and 24 ml yellow fluid obtained . cultures growing yeast and gram positive cocci ENT eval with Dr. Priest appreciated.He recommends maxillofacial evaluation for dental abscess . It does not appear to be any parotitis. Dr Ambrose re consulted and will follow up recommendations 3. Bilateral LE edema sec to CHF exacerbation with diastolic dysfxn worsened Le edema bilateral 3 + Echo showed EF 40-45 % and dilated RV continue fluid restriction still with 3 + bilateral LE edema Continue Aldactone 25 mg bid Lasix prn and replace K Promote ambulation CT chest showed bilateral small to moderate pleural effusion that improved after diuresis Podiatry consulted for dorsum pain and wound consult for LE abrasions 4.Hypokalemia Most likely diuretic induced replete with 40 MEQ Kcl today 5.Hyponatremia, resolved most likely secondary to solute depletion and infection Continue fluid restriction 6.Hx breast ca, bilateral stable, s/p bilateral mastectomy continue arimidex 7.Hypertension on the low side d/c Metoprolol Decreased Verapamil to 40 mg TID on aldactone 25 mg po BID 8. Hypothyroidism patient has history of hyperthyroidism and was on Methimazole - patient has developed hypothyroidism , Methimazole was d/c and she was started on Po levothyroxine- will d/c levothyroxine as TSH went down TSH 41 - now down to 0.24 Endo consulted - Dr Vu following pt 9. Anemia, chronic dis monitor anemia work up showed depleted iron stores Venofer IV given s/p 2 units PRBC transfusion 10. Right cephalic vein thrombosis on lovenox 11.DVT ppx lovenox
[2016-06-27] MEDS: Hydrocerin CREAM TOP SCH ×2 (09:20→16:32)
[2016-06-27] MEDS: THEOPHYLLINE 400 MG T24(UNIPHYL) PO SCH (09:21)
--- NOTE | 2016-06-27 13:06 | PN ---
DATE: 06/27/2016 ICU room 434. Her latest chemistry showed a BUN of 22, sodium 141, potassium 3.3, chloride 97, CO2 o f 29 and creatinine 0.4 with a glucose of 131. Her glucose values today have ranged from 97-115-131 mg/dL. So at this time, we will continue the same serial chemistries and testing for basic thyroid f unction studies, i.e., total T4 and free T4 with a TSH value as ordered. We will continue . Polly Vu MD cc: [id number] TT: 06/27/2016 13:06:06 Confirmation # [id number] Dictation # [id number] mn
--- NOTE | 2016-06-27 14:38 | CP.CCUPN ---
CCU Subjective - Physician Review Events Since Last Encounter (Free Text): 06/27/16 14:14 complains of right facial pain. CCU Objective - Vital Signs / Intake & Output Vital Signs (Last 4 hours): Vital Signs Temp Pulse Resp BP Pulse Ox 06/27/16 14:11 115 H 06/27/16 12:00 97.5 F L 116 H 18 106/50 L 94 L 06/27/16 11:10 18 Intake and Output (Last 8hrs): Intake & Output 06/26/16 06/27/16 06/27/16 22:59 06:59 14:59 Intake Total 650 460 830 Output Total 900 1600 Balance -250 -1140 830 Weight 120 lb Intake: IV 10 10 Intake, Piggyback 400 300 700 Oral 240 160 120 Output: Urine 900 1600 Urethral (Gutierrez) 900 1600 Other: # Bowel Movements 1 1 - Physical Exam Head: Positive for: Atraumatic, Swelling Pupils: Positive for: PERRL Conjunctiva: Positive for: Normal Mouth: Positive for: Moist Mucous Membranes Pharnyx: Positive for: Normal Nose (External): Positive for: Atraumatic Neck: Positive for: Normal Range of Motion Respiratory/Chest: Positive for: Decreased Breath Sounds, Rhonchi Cardiovascular: Positive for: Tachycardic Abdomen: Positive for: Normal Bowel Sounds Upper Extremity: Positive for: Normal Inspection, NORMAL PULSES, Capillary Refill < 2s, Other (Rt arm swelling). Negative for: Cyanosis, Edema, Tenderness Lower Extremity: Positive for: Edema, NORMAL PULSES. Negative for: CALF TENDERNESS Neurological: Positive for: GCS=15, Speech Normal Skin: Positive for: Warm, Dry Psychiatric: Positive for: Alert, Oriented x 3 - Medications Active Medications: Active Medications Generic Name Dose Route Start Last Admin Trade Name Freq PRN Reason Stop Dose Admin Acetaminophen 650 mg 06/11/16 21:34 06/22/16 10:29 Tylenol 325mg Tab PO 650 mg Q6 PRN Administration Pain, moderate (4-7) Acetylcysteine 2 ml 06/22/16 20:00 06/26/16 19:59 Mucomyst 10% 4ml IH 2 ml RBID ANDREAS Administration Albuterol Sulfate 2.5 mg 06/07/16 09:55 06/22/16 18:21 Albuterol 0.083% Inhal Aby (2.5 Mg/3 Ml) Ud INH 2.5 mg RQ4 PRN Administration Shortness of Breath Albuterol/Ipratropium 3 ml 06/11/16 12:00 06/27/16 11:50 Duoneb 3 Mg/0.5 Mg (3 Ml) Ud INH 3 ml RQID ANDREAS Administration Alprazolam 0.25 mg 06/24/16 15:22 06/26/16 21:18 Xanax PO 07/01/16 15:23 0.25 mg Q12 PRN Administration Anxiety Anastrozole 1 mg 06/04/16 09:00 06/27/16 09:01 Arimidex 1 Mg Tab PO 1 mg DAILY ANDREAS Administration Aspirin 81 mg 06/04/16 09:00 06/27/16 09:05 Ecotrin PO 81 mg DAILY ANDREAS Administration Baclofen 10 mg 06/04/16 22:00 06/26/16 21:17 Lioresal PO 10 mg HS ANDREAS Administration Enoxaparin Sodium 40 mg 06/04/16 09:00 06/27/16 09:00 Lovenox SC 40 mg DAILY ANDREAS Administration Protocol Gabapentin 600 mg 06/24/16 22:00 06/27/16 14:10 Neurontin PO 600 mg Q8H ANDREAS Administration Guaifenesin 600 mg 06/25/16 21:00 06/27/16 09:06 Mucinex La PO 600 mg Q12 ANDREAS Administration Meropenem 1 gm/ Sodium 100 mls @ 100 mls/hr 06/19/16 08:00 06/27/16 08:11 Chloride IVPB 100 mls/hr Q12@0800,2000 ANDREAS Administration Hydrocortisone Sodium 100 mls @ 100 mls/hr 06/21/16 17:00 06/27/16 09:06 Succinate 100 mg/ Sodium IV 100 mls/hr Chloride Q8 ANDREAS Administration Piperacillin Sod/Tazobactam 100 mls @ 100 mls/hr 06/24/16 17:00 06/27/16 09:22 Sod 3.375 gm/ Sodium Chloride IVPB 100 mls/hr Q8 ADNREAS Administration Clindamycin Phosphate 600 mg/ 104 mls @ 104 mls/hr 06/24/16 09:15 06/27/16 08: 12 Sodium Chloride IVPB 104 mls/hr Q8 ANDREAS Administration Lactobacillus Acidophilus 1 cap 06/04/16 17:00 06/27/16 09:04 Bacid Acidophilus PO 1 cap BID ANDREAS Administration Multi-Ingredient Cream 1 applic 06/07/16 10:00 06/27/16 09:20 Hydrocerin Cream TOP 1 applic BID ANDREAS Administration Multivitamins/Minerals 1 tab 06/04/16 09:00 06/27/16 09:16 Therapeutic-M Tab PO 1 tab DAILY ANDREAS Administration Pantoprazole Sodium 40 mg 06/04/16 09:00 06/27/16 09:04 Protonix Ec Tab PO 40 mg DAILY ANDREAS Administration Spironolactone 25 mg 06/27/16 09:00 06/27/16 09:00 Aldactone PO 25 mg BID ANDREAS Administration Theophylline 600 mg 06/22/16 09:00 06/27/16 09:21 Uniphyl PO 600 mg DAILY ANDREAS Administration Verapamil HCl 40 mg 06/24/16 22:00 06/27/16 14:11 Calan Tab PO 40 mg Q8H ANDREAS Administration Zolpidem Tartrate 5 mg 06/14/16 22:14 06/27/16 00:44 Ambien PO 5 mg HS PRN Administration Sleep - Patient Studies Lab Studies: Microbiology Studies 06/24/16 11:45 Gram Stain - Final Abscess - Abscess Wound Culture - Preliminary Vancomycin Resistant E.faecium Yeast Species 06/24/16 16:00 Gram Stain - Final Other: Please Indicate Body Fluid Culture - Preliminary NO GROWTH AFTER 3 DAYS 06/24/16 Unknown Anaerobic Culture - Final Abscess - Abscess NO ANAEROBES ISOLATED. Lab Studies 06/27/16 06/26/16 06/26/16 Range/Units 05:30 16:20 15:25 WBC 9.5 (4.8-10.8) K/uL RBC 4.64 (3.80-5.20) Mil/uL Hgb 11.7 L (12.0-16.0) g/dL Hct 37.8 (34.0-47.0) % MCV 81.5 (81.0-99.0) fl MCH 25.2 L (27.0-31.0) pg MCHC 30.9 L (33.0-37.0) g/dL RDW 32.9 H (11.5-14.5) % Plt Count 294 (130-400) K/uL pCO2 46 H (35-45) mm/Hg pO2 68 L (80-100) mm/Hg HCO3 38.1 H (21-28) mmol/L ABG pH 7.56 H (7.35-7.45) ABG Total CO2 42.6 H (22-28) mmol/L ABG O2 Saturation 96.9 (95-98) % ABG O2 Content 14.9 L (15-23) ML/dL ABG Base Excess 17.0 H (-2.0-3.0) mmol/L ABG Hemoglobin 11.3 L (11.7-17.4) g/dL ABG Carboxyhemoglobin 2.3 H (0.5-1.5) % POC ABG HHb (Measured) 3.0 (0.0-5.0) % ABG Methemoglobin 0.8 (0.0-3.0) % ABG O2 Capacity 15.4 L (16-24) mL/dL Tawanda Test Yes A-a O2 Difference 88.0 mm/Hg Hgb O2 Saturation 93.8 L (95.0-98.0) % Liter Flow 30 Vent Mode High flow lpm FiO2 30.0 % Sodium 141 (132-148) mmol/l Potassium 2.0 L* D (3.6-5.0) MMOL/L Chloride 93 L (98-107) mmol/L Carbon Dioxide 39 H (22-30) mmol/L Anion Gap 11 (10-20) BUN 15 (7-17) mg/dl Creatinine 0.3 L (0.7-1.2) mg/dL Est GFR ( Amer) > 60 Est GFR (Non-Af Amer) > 60 Random Glucose 104 (65-105) mg/dL Calcium 7.3 L (8.4-10.2) mg/dL C. difficile Ag & Toxin Negative (NEGATIVE) 06/25/16 Range/Units 09:35 WBC (4.8-10.8) K/uL RBC (3.80-5.20) Mil/uL Hgb (12.0-16.0) g/dL Hct (34.0-47.0) % MCV (81.0-99.0) fl MCH (27.0-31.0) pg MCHC (33.0-37.0) g/dL RDW (11.5-14.5) % Plt Count (130-400) K/uL pCO2 (35-45) mm/Hg pO2 (80-100) mm/Hg HCO3 (21-28) mmol/L ABG pH (7.35-7.45) ABG Total CO2 (22-28) mmol/L ABG O2 Saturation (95-98) % ABG O2 Content (15-23) ML/dL ABG Base Excess (-2.0-3.0) mmol/L ABG Hemoglobin (11.7-17.4) g/dL ABG Carboxyhemoglobin (0.5-1.5) % POC ABG HHb (Measured) (0.0-5.0) % ABG Methemoglobin (0.0-3.0) % ABG O2 Capacity (16-24) mL/dL Tawanda Test A-a O2 Difference mm/Hg Hgb O2 Saturation (95.0-98.0) % Liter Flow Vent Mode FiO2 % Sodium (132-148) mmol/l Potassium (3.6-5.0) MMOL/L Chloride (98-107) mmol/L Carbon Dioxide (22-30) mmol/L Anion Gap (10-20) BUN (7-17) mg/dl Creatinine (0.7-1.2) mg/dL Est GFR ( Amer) Est GFR (Non-Af Amer) Random Glucose (65-105) mg/dL Calcium (8.4-10.2) mg/dL C. difficile Ag & Toxin Negative (NEGATIVE) Laboratory Results - last 24 hr 06/25/16 06/26/16 06/26/16 09:35 15:25 16:20 WBC RBC Hgb Hct MCV MCH MCHC RDW Plt Count pCO2 46 H pO2 68 L HCO3 38.1 H ABG pH 7.56 H ABG Total CO2 42.6 H ABG O2 Saturation 96.9 ABG O2 Content 14.9 L ABG Base Excess 17.0 H ABG Hemoglobin 11.3 L ABG Carboxyhemoglobin 2.3 H POC ABG HHb (Measured) 3.0 ABG Methemoglobin 0.8 ABG O2 Capacity 15.4 L Tawanda Test Yes A-a O2 Difference 88.0 Hgb O2 Saturation 93.8 L Liter Flow 30 Vent Mode High flow lpm FiO2 30.0 Sodium Potassium Chloride Carbon Dioxide Anion Gap BUN Creatinine Est GFR ( Amer) Est GFR (Non-Af Amer) Random Glucose Calcium C. difficile Ag & Toxin Negative Negative 06/27/16 05:30 WBC 9.5 RBC 4.64 Hgb 11.7 L Hct 37.8 MCV 81.5 MCH 25.2 L MCHC 30.9 L RDW 32.9 H Plt Count 294 pCO2 pO2 HCO3 ABG pH ABG Total CO2 ABG O2 Saturation ABG O2 Content ABG Base Excess ABG Hemoglobin ABG Carboxyhemoglobin POC ABG HHb (Measured) ABG Methemoglobin ABG O2 Capacity Tawanda Test A-a O2 Difference Hgb O2 Saturation Liter Flow Vent Mode FiO2 Sodium 141 Potassium 2.0 L* D Chloride 93 L Carbon Dioxide 39 H Anion Gap 11 BUN 15 Creatinine 0.3 L Est GFR ( Amer) > 60 Est GFR (Non-Af Amer) > 60 Random Glucose 104 Calcium 7.3 L C. difficile Ag & Toxin Review of Systems - Review of Systems All systems: reviewed and no additional remarkable complaints except - EENT Nose/Mouth/Throat: Facial Pain Critical Care Progress Note - Nutrition Nutrition: Nutrition Category Date Time Status Regular Diet [DIET] Diets 06/11/16 Dinner Active Assessment/Plan (1) Acute respiratory failure with hypoxia Assessment and plan: 66yo F. PMHx hyperthyroidism, COPD, p/w right mandibular abscess c/b acute exacerbation of chronic COPD. Neuro: no acute issues, alert and oriented x 3 Pulm: acute hypoxic respiratory failure, currently on high flow oxygen. Continue Duonebs, mucomyst nebs, guaifenesin po, theophylline po, hydrocortisone 100mg q8h. CV: hemodynamically stable. HTN controlled with verapamil and aldactone. Renal: hypokalemia, supplemented, continue aldactone bid. chronic metabolic alkalosis, unsure of etiology. sending urine chloride, aldosterone and renin activity. Giving Diamox and fluids, patient has been having frequent bowel movements, not diarrhea. Renal consulted. Amiloride did not work, most likely not Lucia's syndrome. GI: regular diet with ensure supplementation ID: severe sepsis from right mandibular abscess with osteomyelitis, continue Zosyn, Meropenem, and clindamycin. DVT proph - lovenox GI proph - protonix Full code Critical Care time 35 minutes Current Visit: Yes Status: Acute
[2016-06-27] MEDS ORDERED: SODIUM CHLORIDE 0.9% IV ONE (15:00)
[2016-06-27] MEDS ORDERED: ACETAZOLAMIDE IV ONE (15:00)
[2016-06-27] MEDS: Linezolid 600 mg in D5W 300 ml 300 ML IVPB SCH (21:20)
[2016-06-28] MEDS: Clindamycin 600 MG in Sodium Chloride 0.9% 100 ML IVPB SCH ×2 (00:34→08:34)
[2016-06-28] MEDS: Piperacillin/Tazobact 3.375 GM in Sodium Chloride 0.9% 100 ML IVPB SCH ×3 (00:37→17:11)
[2016-06-28] MEDS: Hydrocortisone- 100 MG in Sodium Chloride 0.9% 100 ML IV SCH ×5 (00:38→20:50)
[2016-06-28 05:28] LABS: HEMATOCRIT 36.7 % (34.0-47.0); MEAN CELL VOLUME 81.5 fl (81.0-99.0); MEAN CORPUSCULAR HEMOGLOBIN 25.2 pg (27.0-31.0); MEAN CORPUSCULAR HGB CONC 30.9 g/dL (33.0-37.0); RED CELL DISTRIBUTION WIDTH 32.7 % (11.5-14.5); WHITE BLOOD COUNT 10.8 K/uL (4.8-10.8)
[2016-06-28 05:45] LABS: BLOOD UREA NITROGEN 15 mg/dl (7-17); CALCIUM 7.8 mg/dL (8.4-10.2); CARBON DIOXIDE 37 mmol/L (22-30); CHLORIDE 97 mmol/L (98-107); GFR AFRICAN-AMERICAN > 60; GLUCOSE,RANDOM 100 mg/dL (65-105); SODIUM 141 mmol/l (132-148)
[2016-06-28 05:49] LABS: POTASSIUM 2.1 MMOL/L (3.6-5.0)
[2016-06-28] MEDS ORDERED: Potassium Chloride 20 mEq ER Tab PO ONE (05:56)
[2016-06-28] MEDS: Potassium CL 10 MEQ/50 ML 50 ML IVPB SCH ×4 (06:09→09:08)
[2016-06-28] MEDS: Meropenem 1 GM in Sodium Chloride 0.9% 100 ML IVPB SCH ×2 (07:37→20:39)
[2016-06-28] MEDS: Albuterol-Ipratrop 3 mg / 0.5 (3 ml) UD INH SCH ×4 (08:03→19:05)
[2016-06-28] MEDS: Acetylcysteine 10% 4 ML IH SCH ×2 (08:04→19:06)
[2016-06-28] MEDS: Enoxaparin 40 mg Syringe SC SCH (08:31)
[2016-06-28] MEDS: THEOPHYLLINE 400 MG T24(UNIPHYL) PO SCH (08:32)
[2016-06-28] MEDS: Multivitamin With Minerals Tab PO SCH (08:32)
[2016-06-28] MEDS: Pantoprazole 40 mg EC Tab PO SCH (08:32)
[2016-06-28] MEDS: Lactobacillus Acidophilus 500 MU Cap PO SCH ×2 (08:33→17:09)
[2016-06-28] MEDS: guaiFENesin 600 mg ER Tab PO SCH ×2 (08:33→20:47)
--- NOTE | 2016-06-28 09:00 | PN ---
DATE: 06/28/2016 ROOM: 434 This is a 66-year-old female with acute exacerbation of COPD, currently on IV steroid therapy and als o supervening congestive heart failure, and is now being followed closely for metabolic management. She also presented with hypothyroidism and was given oral levothyroxine therapy as noted. She has im proved metabolically as noted thereof and has just been taken off oral levothyroxine therapy as order ed. Her latest TSH is 0.24 and chemistry showed a BUN of 15, sodium 141, potassium 2.1, chloride 97, CO2 of 37, glucose 100 and creatinine 0.5. So, at this time, will repeat the thyroid studies once again and determine the need to restart her on Tapazole medication as indicated. Will obtain serial chemistries and supplement accordingly as need ed. Will follow. Polly Vu MD cc: [id number] TT: 06/28/2016 09:00:10 Confirmation # [id number] Dictation # [id number] mn
[2016-06-28] MEDS: Hydrocerin CREAM TOP SCH ×2 (09:12→17:10)
--- NOTE | 2016-06-28 09:47 | CP.PCM.PN ---
Subjective - Date & Time of Evaluation Date of Evaluation: 06/28/16 Time of Evaluation: 08:45 - Subjective Subjective: No fever right Facial swelling - with pain and tenderness- awaiting Dr Ambrose to re- eval episodes of tachypnea remains on High Flow Oxygen had several formed BM last night - c diff neg x 2 denies abd pain Leg edema K= 2.1 Objective - Vital Signs/Intake and Output Vital Signs (last 24 hours): Temp Pulse Resp BP Pulse Ox 98.1 F 105 H 17 130/84 99 06/28/16 08:00 06/28/16 08:00 06/28/16 08:11 06/28/16 08:00 06/28/16 08:00 Intake and Output: 06/28/16 06/28/16 06:59 18:59 Intake Total 1000 50 Output Total 1100 Balance -100 50 - Medications Medications: Current Medications Acetaminophen (Tylenol 325mg Tab) 650 mg PO Q6 PRN PRN Reason: Pain, moderate (4-7) Last Admin: 06/28/16 01:46 Dose: 650 mg Acetylcysteine (Mucomyst 10% 4ml) 2 ml IH RBID [facility] Last Admin: 06/28/16 08:04 Dose: 2 ml Albuterol Sulfate (Albuterol 0.083% Inhal Aby (2.5 Mg/3 Ml) Ud) 2.5 mg INH RQ4 PRN PRN Reason: Shortness of Breath Last Admin: 06/22/16 18:21 Dose: 2.5 mg Albuterol/Ipratropium (Duoneb 3 Mg/0.5 Mg (3 Ml) Ud) 3 ml INH RQID [facility] Last Admin: 06/28/16 08:03 Dose: 3 ml Alprazolam (Xanax) 0.25 mg PO Q12 PRN PRN Reason: Anxiety Stop: 07/01/16 15:23 Last Admin: 06/26/16 21:18 Dose: 0.25 mg Anastrozole (Arimidex 1 Mg Tab) 1 mg PO DAILY [facility] Last Admin: 06/28/16 08:31 Dose: 1 mg Aspirin (Ecotrin) 81 mg PO DAILY [facility] Last Admin: 06/28/16 08:32 Dose: 81 mg Baclofen (Lioresal) 10 mg PO HS [facility] Last Admin: 06/27/16 21:20 Dose: 10 mg Enoxaparin Sodium (Lovenox) 40 mg SC DAILY [facility] PRN Reason: Protocol Last Admin: 06/28/16 08:31 Dose: 40 mg Gabapentin (Neurontin) 600 mg PO Q8H [facility] Last Admin: 06/28/16 06:07 Dose: 600 mg Guaifenesin (Mucinex La) 600 mg PO Q12 [facility] Last Admin: 06/28/16 08:33 Dose: 600 mg Meropenem 1 gm/ Sodium (Chloride) 100 mls @ 100 mls/hr IVPB Q12@0800,2000 [facility] Last Admin: 06/28/16 07:37 Dose: 100 mls/hr Hydrocortisone Sodium Succinate 100 mg/ Sodium Chloride 100 mls @ 100 mls/hr IV Q8 [facility] Last Admin: 06/28/16 00:38 Dose: 100 mls/hr Piperacillin Sod/Tazobactam (Sod 3.375 gm/ Sodium Chloride) 100 mls @ 100 mls/ hr IVPB Q8 [facility] Last Admin: 06/28/16 08:05 Dose: 100 mls/hr Linezolid (Zyvox 600mg/300ml D5w) 300 mls @ 300 mls/hr IVPB Q12 [facility] Last Admin: 06/27/16 21:20 Dose: 300 mls/hr Potassium Chloride (Potassium Cl 10meq/50ml Sterile Water) 50 mls @ 50 mls/hr IVPB Q1 [facility] Stop: 06/28/16 09:59 Last Admin: 06/28/16 09:08 Dose: 50 mls/hr Lactobacillus Acidophilus (Bacid Acidophilus) 1 cap PO BID [facility] Last Admin: 06/28/16 08:33 Dose: 1 cap Multi-Ingredient Cream (Hydrocerin Cream) 1 applic TOP BID [facility] Last Admin: 06/28/16 09:12 Dose: 1 applic Multivitamins/Minerals (Therapeutic-M Tab) 1 tab PO DAILY [facility] Last Admin: 06/28/16 08:32 Dose: 1 tab Pantoprazole Sodium (Protonix Ec Tab) 40 mg PO DAILY [facility] Last Admin: 06/28/16 08:32 Dose: 40 mg Spironolactone (Aldactone) 25 mg PO BID [facility] Last Admin: 06/28/16 08:32 Dose: 25 mg Theophylline (Uniphyl) 600 mg PO DAILY [facility] Last Admin: 06/28/16 08:32 Dose: 600 mg Verapamil HCl (Calan Tab) 40 mg PO Q8H ANDREAS Last Admin: 06/28/16 06:08 Dose: 40 mg Zolpidem Tartrate (Ambien) 5 mg PO HS PRN PRN Reason: Sleep Last Admin: 06/27/16 21:28 Dose: 5 mg - Labs Labs: 06/28/16 04:10 06/28/16 04:10 PT 11.0 SECONDS (9.6-11.2) 06/09/16 04:10 INR 1.06 (0.92-1.08) 06/09/16 04:10 APTT 27.5 SECONDS (23.3-32.5) 06/03/16 22:33 - Constitutional Appears: Chronically Ill, not in distress - Head Exam Head Exam: NORMAL INSPECTION, NORMOCEPHALIC - Eye Exam Eye Exam: EOMI, Normal appearance Pupil Exam: NORMAL ACCOMMODATION - ENT Exam ENT Exam: Mucous Membranes Dry, Normal External Ear Exam Additional comments: right facial swelling, + tenderness to touch - Neck Exam Neck Exam: Full ROM. absent: Meningismus - Respiratory Exam Respiratory Exam: + rhonchi , minimal rales bases, no wheezing on High Flow Oxygen - Cardiovascular Exam Cardiovascular Exam: REGULAR RHYTHM, +S1, +S2 - GI/Abdominal Exam GI & Abdominal Exam: Soft, Normal Bowel Sounds. absent: Tenderness - Extremities Exam Extremities Exam: Normal Capillary Refill, + pedal Pedal Edema Additional comments: abrasions LE right shoulder deformity RUE edema - Back Exam Back Exam: absent: CVA tenderness (L), CVA tenderness (R) - Neurological Exam Neurological Exam: Alert, Awake, CN II-XII Intact, Oriented x3 - Psychiatric Exam Psychiatric exam: Normal Affect, Normal Mood - Skin Skin Exam: Dry, Normal Color, Warm Assessment and Plan (1) Acute and chronic respiratory failure with hypercapnia Status: Acute (2) Osteomyelitis of mandible Status: Acute (3) Hypothyroidism Status: Acute (4) Acute exacerbation of chronic obstructive pulmonary disease (COPD) Status: Acute (5) HTN (hypertension) Status: Chronic (6) Hx of breast cancer Status: Chronic (7) Acute exacerbation of CHF (congestive heart failure) Status: Acute (8) Hypokalemia Status: Acute (9) Facial abscess Status: Acute (10) DVT prophylaxis Status: Acute - Assessment and Plan (Free Text) Assessment: 66 y/o female PMH COPD, bilateral breast CA s/p chemo and radiation 8 years ago with bone mets to shoulder (s/p humeral resection), HTN, hyperthyroidism presented with 2 week history of worsening bilateral lower extremity swelling and weakness, unable to get herself up to her walker. Patient has mild dyspnea at baseline. She also came with a large right facial swelling for almost 2 weeks and was taking PO antibiotics prescribed by her dentist. Patient was admitted for generalized weakness , Hyponatremia and Facial abscess. She was started on IV antibiotics for facial abscess and Lasix IV with fluid restriction for LE edema. Maxillofacial Ct showed possible abscess accumulation. Evaluated by Oromaxillofacial surgeon and underwent Incision and drainage of abscess. Bone scan showed possible osteomyelitis . ID recommends 4-6 wks IV abx treatment. During this hospitalization noted to have increased dyspnea at rest and more so with minimal activity, decreased air entry bilaterally and increased work of breathing. She was started on high flow O2, Higher doses of theophylline and IV hydrocortisone. CTA chest and LE doppler showed no DVT. She was transferred to ICU for close monitoring for tachypnea and tachycardia. At present, still on High Flow Oxygen 30 LMP FIO2 30 % with good oxygenation but tachypneic . 1. Acute on Chronic Respiratory Insufficiency with hypercapnea Most likely secondary to COPD exacerbation with acute bronchitis and CHF exacerbation Still on high flow O2 via NC 30 L/min on FIO2 30 % with good oxygenation CT chest showed no PE and improved bilateral pleural effusion after diuresis LE doppler showed no DVT Diuretics changed to Aldactone bec of hypokalemia but stil hypokalemic monitor k closely and replace accordingly. Nephro consulted Lasix prn Continue Duonebs Continue Chest PT , Coughalator and Acapella therapy pulmonary consulted : Dr. Benz who is following pt closely On Hydrocortisone to 100 mg IV Q8 and Theophylline to 600 mg Po daily on very low dose Xanax 0.25 bid prn as this seem to help when pt gets very anxious, tachypenic and tachycardic 2. Facial abscess with mandibular Osteomyelitis s/p drainage of abscess Maxillofacial Ct showed :Large enhancing wall collection seen around the mid and upper right mandibular ramus and mandibular neck extending anteriorly and seen medial and lateral to the right zygomatic arch. This collection contains foci of air. The density and the appearance of this collection suggestive of abscess formation. The collection is seen anterior to the right parotid gland and extending medially to the posterior right oral cavity. [id number] right maxillary sinus mucosal thickening and small air-fluid level. Partial opacification of both mastoids suggestive of mastoiditis. ID on consult: Dr Obrien. Recommended IV abx 6 wks total ( # Day ) OMFS Dr. Ambrose consulted and patient underwent Incision and drainage on 06/09 pathology report showed inflammatory cells, no malignancy Nuclear Bone Scan suggestive of osteomyelitis Tunneled central line placed for termite exterminator helper IV antibiotics- this will need to be d/c by IR after IV abx treatment is completed ( as discussed with Dr Gunter - pt was informed of need to see IR after abx tx) Antibiotics changed : now on Zyvox , Zosyn and Meropenem Pt underwent drainage of facial collection by IR on 06/24 and 24 ml yellow fluid obtained- c/s : VRE and Amanda ENT eval with Dr. Priest appreciated. He recommends maxillofacial evaluation for dental abscess , not parotitis. Dr Ambrose re consulted 3. Bilateral LE edema sec to CHF exacerbation with diastolic dysfxn worsened Le edema bilateral 3 + Echo showed EF 40-45 % and dilated RV continue fluid restriction still with 3 + bilateral LE edema Continue Aldactone 25 mg bid Lasix prn and replace K Promote ambulation CT chest showed bilateral small to moderate pleural effusion that improved after diuresis Podiatry consulted for dorsum pain and wound consult for LE abrasions 4.Hypokalemia multifactorial diuretic induced , Albuterol, - Lasix changed to Aldactone - KCl runs and PO -Nephro consult 5.Hyponatremia, resolved most likely secondary to solute depletion and infection Continue fluid restriction 6.Hx breast ca, bilateral stable, s/p bilateral mastectomy continue arimidex 7.Hypertension on the low side d/c Metoprolol Decreased Verapamil to 40 mg TID on aldactone 25 mg po BID 8. Hypothyroidism patient has history of hyperthyroidism and was on Methimazole - patient has developed hypothyroidism , Methimazole was d/c and she was started on Po levothyroxine- will d/c levothyroxine as TSH went down TSH 41 - now down to 0.24 Endo consulted - Dr Vu following pt rpt levels in am 9. Anemia, chronic dis monitor anemia work up showed depleted iron stores Venofer IV given s/p 2 units PRBC transfusion 10. Right cephalic vein thrombosis on lovenox 11.DVT ppx lovenox
[2016-06-28] MEDS: Linezolid 600 mg in D5W 300 ml 300 ML IVPB SCH ×2 (10:01→20:38)
[2016-06-28] MEDS: Oxycodone/Acetaminophen 5/325 mg Tab PO PRN (10:55)
--- NOTE | 2016-06-28 11:39 | CP.PCM.PN ---
Subjective - Date & Time of Evaluation Date of Evaluation: 06/28/16 Time of Evaluation: 11:39 - Subjective Subjective: Interim events reviewed. Patient remains in the ICU. She continues to have episodic dyspnea even at rest. She remains on High-Flow nasal oxygen. ID following and adjusting antibiotics. Culture positive for VRE. Right facial swelling is still significant, no erythema. Neck is supple and trachea midline. Sutures on buccal mucosa present, much less secretions in oropharynx. Breath sounds are markedly diminished bilaterally with prolonged E phase. No audible expiratory wheezing heard. Sonorous rhonchi are heard bilaterally. Medium rales (few) in dependant areas of both lower lobes. Edema of RUE unchanged. No cyanosis. Continue in the same manner. ID follows for abx. Discussed with proofer black and white; will start to reduce hydrocortisone. Manage K+ replacement as needed. Contact isolation. Objective - Vital Signs/Intake and Output Vital Signs (last 24 hours): Temp Pulse Resp BP Pulse Ox 98.1 F 109 H 16 118/70 96 06/28/16 08:00 06/28/16 10:00 06/28/16 10:00 06/28/16 10:00 06/28/16 10:00 Intake and Output: 06/27/16 06/28/16 23:59 11:59 Intake Total 1650 1100 Output Total 1300 1100 Balance 350 0 - Medications Medications: Current Medications Acetaminophen (Tylenol 325mg Tab) 650 mg PO Q6 PRN PRN Reason: Pain, moderate (4-7) Last Admin: 06/28/16 01:46 Dose: 650 mg Acetylcysteine (Mucomyst 10% 4ml) 2 ml IH RBID [facility] Last Admin: 06/28/16 08:04 Dose: 2 ml Albuterol Sulfate (Albuterol 0.083% Inhal Aby (2.5 Mg/3 Ml) Ud) 2.5 mg INH RQ4 PRN PRN Reason: Shortness of Breath Last Admin: 06/22/16 18:21 Dose: 2.5 mg Albuterol/Ipratropium (Duoneb 3 Mg/0.5 Mg (3 Ml) Ud) 3 ml INH RQID [facility] Last Admin: 06/28/16 08:03 Dose: 3 ml Alprazolam (Xanax) 0.25 mg PO Q12 PRN PRN Reason: Anxiety Stop: 07/01/16 15:23 Last Admin: 06/26/16 21:18 Dose: 0.25 mg Anastrozole (Arimidex 1 Mg Tab) 1 mg PO DAILY [facility] Last Admin: 06/28/16 08:31 Dose: 1 mg Aspirin (Ecotrin) 81 mg PO DAILY [facility] Last Admin: 06/28/16 08:32 Dose: 81 mg Baclofen (Lioresal) 10 mg PO HS [facility] Last Admin: 06/27/16 21:20 Dose: 10 mg Enoxaparin Sodium (Lovenox) 40 mg SC DAILY [facility] PRN Reason: Protocol Last Admin: 06/28/16 08:31 Dose: 40 mg Gabapentin (Neurontin) 600 mg PO Q8H [facility] Last Admin: 06/28/16 06:07 Dose: 600 mg Guaifenesin (Mucinex La) 600 mg PO Q12 [facility] Last Admin: 06/28/16 08:33 Dose: 600 mg Meropenem 1 gm/ Sodium (Chloride) 100 mls @ 100 mls/hr IVPB Q12@0800,2000 [facility] Last Admin: 06/28/16 07:37 Dose: 100 mls/hr Hydrocortisone Sodium Succinate 100 mg/ Sodium Chloride 100 mls @ 100 mls/hr IV Q8 [facility] Last Admin: 06/28/16 10:58 Dose: 100 mls/hr Piperacillin Sod/Tazobactam (Sod 3.375 gm/ Sodium Chloride) 100 mls @ 100 mls/ hr IVPB Q8 [facility] Last Admin: 06/28/16 08:05 Dose: 100 mls/hr Linezolid (Zyvox 600mg/300ml D5w) 300 mls @ 300 mls/hr IVPB Q12 [facility] Last Admin: 06/28/16 10:01 Dose: 300 mls/hr Lactobacillus Acidophilus (Bacid Acidophilus) 1 cap PO BID [facility] Last Admin: 06/28/16 08:33 Dose: 1 cap Multi-Ingredient Cream (Hydrocerin Cream) 1 applic TOP BID [facility] Last Admin: 06/28/16 09:12 Dose: 1 applic Multivitamins/Minerals (Therapeutic-M Tab) 1 tab PO DAILY [facility] Last Admin: 06/28/16 08:32 Dose: 1 tab Oxycodone/Acetaminophen (Percocet 5/325 Mg Tab) 1 tab PO Q4 PRN PRN Reason: Pain, moderate (4-7) Stop: 07/01/16 10:41 Last Admin: 06/28/16 10:55 Dose: 1 tab Pantoprazole Sodium (Protonix Ec Tab) 40 mg PO DAILY [facility] Last Admin: 06/28/16 08:32 Dose: 40 mg Spironolactone (Aldactone) 25 mg PO BID [facility] Last Admin: 06/28/16 08:32 Dose: 25 mg Theophylline (Uniphyl) 600 mg PO DAILY [facility] Last Admin: 06/28/16 08:32 Dose: 600 mg Verapamil HCl (Calan Tab) 40 mg PO Q8H [facility] Last Admin: 06/28/16 06:08 Dose: 40 mg Zolpidem Tartrate (Ambien) 5 mg PO HS PRN PRN Reason: Sleep Last Admin: 06/27/16 21:28 Dose: 5 mg - Labs Labs: 06/28/16 04:10 06/28/16 04:10 PT 11.0 SECONDS (9.6-11.2) 06/09/16 04:10 INR 1.06 (0.92-1.08) 06/09/16 04:10 APTT 27.5 SECONDS (23.3-32.5) 06/03/16 22:33 Assessment and Plan (1) Acute bronchitis with chronic obstructive pulmonary disease (COPD) Status: Acute (2) Hyperthyroidism Status: Chronic (3) Abscess Status: Acute
[2016-06-28 11:58] LABS: CHLORIDE 98 mmol/L (98-107); SODIUM 136 mmol/l (132-148)
[2016-06-28 11:59] LABS: POTASSIUM 3.2 MMOL/L (3.6-5.0)
--- NOTE | 2016-06-28 11:59 | CP.PCM.PN ---
Subjective - Date & Time of Evaluation Date of Evaluation: 06/28/16 Time of Evaluation: 11:56 - Subjective Subjective: Pt has VRE in the right mandibular mass. She has a fair amount of pain in the area, and it seems to be throbbing in nature.She is still short of breath, but seems to be better. Her CBC appears to be stable. Objective - Vital Signs/Intake and Output Vital Signs (last 24 hours): Temp Pulse Resp BP Pulse Ox 98.1 F 109 H 16 118/70 96 06/28/16 08:00 06/28/16 10:00 06/28/16 10:00 06/28/16 10:00 06/28/16 10:00 Intake and Output: 06/28/16 06/28/16 06:59 18:59 Intake Total 1000 1000 Output Total 1100 Balance -100 1000 - Medications Medications: Current Medications Acetaminophen (Tylenol 325mg Tab) 650 mg PO Q6 PRN PRN Reason: Pain, moderate (4-7) Last Admin: 06/28/16 01:46 Dose: 650 mg Acetylcysteine (Mucomyst 10% 4ml) 2 ml IH RBID [facility] Last Admin: 06/28/16 08:04 Dose: 2 ml Albuterol Sulfate (Albuterol 0.083% Inhal Aby (2.5 Mg/3 Ml) Ud) 2.5 mg INH RQ4 PRN PRN Reason: Shortness of Breath Last Admin: 06/22/16 18:21 Dose: 2.5 mg Albuterol/Ipratropium (Duoneb 3 Mg/0.5 Mg (3 Ml) Ud) 3 ml INH RQID [facility] Last Admin: 06/28/16 11:41 Dose: 3 ml Alprazolam (Xanax) 0.25 mg PO Q12 PRN PRN Reason: Anxiety Stop: 07/01/16 15:23 Last Admin: 06/26/16 21:18 Dose: 0.25 mg Anastrozole (Arimidex 1 Mg Tab) 1 mg PO DAILY [facility] Last Admin: 06/28/16 08:31 Dose: 1 mg Aspirin (Ecotrin) 81 mg PO DAILY [facility] Last Admin: 06/28/16 08:32 Dose: 81 mg Baclofen (Lioresal) 10 mg PO HS [facility] Last Admin: 06/27/16 21:20 Dose: 10 mg Enoxaparin Sodium (Lovenox) 40 mg SC DAILY [facility] PRN Reason: Protocol Last Admin: 06/28/16 08:31 Dose: 40 mg Gabapentin (Neurontin) 600 mg PO Q8H [facility] Last Admin: 06/28/16 06:07 Dose: 600 mg Guaifenesin (Mucinex La) 600 mg PO Q12 [facility] Last Admin: 06/28/16 08:33 Dose: 600 mg Meropenem 1 gm/ Sodium (Chloride) 100 mls @ 100 mls/hr IVPB Q12@0800,2000 [facility] Last Admin: 06/28/16 07:37 Dose: 100 mls/hr Hydrocortisone Sodium Succinate 100 mg/ Sodium Chloride 100 mls @ 100 mls/hr IV Q8 [facility] Last Admin: 06/28/16 10:58 Dose: 100 mls/hr Piperacillin Sod/Tazobactam (Sod 3.375 gm/ Sodium Chloride) 100 mls @ 100 mls/ hr IVPB Q8 [facility] Last Admin: 06/28/16 08:05 Dose: 100 mls/hr Linezolid (Zyvox 600mg/300ml D5w) 300 mls @ 300 mls/hr IVPB Q12 [facility] Last Admin: 06/28/16 10:01 Dose: 300 mls/hr Lactobacillus Acidophilus (Bacid Acidophilus) 1 cap PO BID [facility] Last Admin: 06/28/16 08:33 Dose: 1 cap Loperamide HCl (Imodium) 2 mg PO QID PRN PRN Reason: Loose stools Multi-Ingredient Cream (Hydrocerin Cream) 1 applic TOP BID [facility] Last Admin: 06/28/16 09:12 Dose: 1 applic Multivitamins/Minerals (Therapeutic-M Tab) 1 tab PO DAILY [facility] Last Admin: 06/28/16 08:32 Dose: 1 tab Oxycodone/Acetaminophen (Percocet 5/325 Mg Tab) 1 tab PO Q4 PRN PRN Reason: Pain, moderate (4-7) Stop: 07/01/16 10:41 Last Admin: 06/28/16 10:55 Dose: 1 tab Pantoprazole Sodium (Protonix Ec Tab) 40 mg PO DAILY [facility] Last Admin: 06/28/16 08:32 Dose: 40 mg Spironolactone (Aldactone) 25 mg PO BID [facility] Last Admin: 06/28/16 08:32 Dose: 25 mg Theophylline (Uniphyl) 600 mg PO DAILY [facility] Last Admin: 06/28/16 08:32 Dose: 600 mg Verapamil HCl (Calan Tab) 40 mg PO Q8H [facility] Last Admin: 06/28/16 06:08 Dose: 40 mg Zolpidem Tartrate (Ambien) 5 mg PO HS PRN PRN Reason: Sleep Last Admin: 06/27/16 21:28 Dose: 5 mg - Labs Labs: 06/28/16 04:10 06/28/16 04:10 PT 11.0 SECONDS (9.6-11.2) 06/09/16 04:10 INR 1.06 (0.92-1.08) 06/09/16 04:10 APTT 27.5 SECONDS (23.3-32.5) 06/03/16 22:33 Assessment and Plan - Assessment and Plan (Free Text) Plan: Plan; will continue to monitor the CBC.
[2016-06-28 12:01] LABS: GFR AFRICAN-AMERICAN > 60
[2016-06-28 12:02] LABS: BLOOD UREA NITROGEN 14 mg/dl (7-17); CALCIUM 7.7 mg/dL (8.4-10.2); CARBON DIOXIDE 36 mmol/L (22-30); GLUCOSE,RANDOM 172 mg/dL (65-105)
[2016-06-28] MEDS ORDERED: Potassium Chloride 20 mEq/15 ml LIQ UD PO ONE (13:51)
--- NOTE | 2016-06-28 14:21 | CP.CCUPN ---
CCU Subjective - Physician Review Events Since Last Encounter (Free Text): alert and oriented, facial swelling is worse. CCU Objective - Vital Signs / Intake & Output Vital Signs (Last 4 hours): Vital Signs Resp 06/28/16 13:47 16 Intake and Output (Last 8hrs): Intake & Output 06/27/16 06/28/16 06/28/16 22:59 06:59 14:59 Intake Total 1491 495 4024 Output Total 1300 1100 Balance -170 -600 1000 Weight 121 lb 9.6 oz 121 lb 9.6 oz Intake: IV 110 Intake, Piggyback 700 300 800 Oral 320 200 200 Output: Urine 1300 1100 Urethral (Gutierrez) 1300 1100 Other: # Bowel Movements 1 2 1 - Physical Exam Head: Positive for: Atraumatic, Swelling Pupils: Positive for: PERRL Conjunctiva: Positive for: Normal Mouth: Positive for: Moist Mucous Membranes Pharnyx: Positive for: Normal Nose (External): Positive for: Atraumatic Neck: Positive for: Normal Range of Motion Respiratory/Chest: Positive for: Decreased Breath Sounds, Rhonchi Cardiovascular: Positive for: Tachycardic Abdomen: Positive for: Normal Bowel Sounds Upper Extremity: Positive for: Normal Inspection, NORMAL PULSES, Capillary Refill < 2s, Other (Rt arm swelling). Negative for: Cyanosis, Edema, Tenderness Lower Extremity: Positive for: Edema, NORMAL PULSES. Negative for: CALF TENDERNESS Neurological: Positive for: GCS=15, Speech Normal Skin: Positive for: Warm, Dry Psychiatric: Positive for: Alert, Oriented x 3 - Medications Active Medications: Active Medications Generic Name Dose Route Start Last Admin Trade Name Freq PRN Reason Stop Dose Admin Acetaminophen 650 mg 06/11/16 21:34 06/28/16 01:46 Tylenol 325mg Tab PO 650 mg Q6 PRN Administration Pain, moderate (4-7) Acetylcysteine 2 ml 06/22/16 20:00 06/28/16 08:04 Mucomyst 10% 4ml IH 2 ml RBID [facility] Administration Albuterol Sulfate 2.5 mg 06/07/16 09:55 06/22/16 18:21 Albuterol 0.083% Inhal Aby (2.5 Mg/3 Ml) Ud INH 2.5 mg RQ4 PRN Administration Shortness of Breath Albuterol/Ipratropium 3 ml 06/11/16 12:00 06/28/16 11:41 Duoneb 3 Mg/0.5 Mg (3 Ml) Ud INH 3 ml RQID [facility] Administration Alprazolam 0.25 mg 06/24/16 15:22 06/26/16 21:18 Xanax PO 07/01/16 15:23 0.25 mg Q12 PRN Administration Anxiety Anastrozole 1 mg 06/04/16 09:00 06/28/16 08:31 Arimidex 1 Mg Tab PO 1 mg DAILY [facility] Administration Aspirin 81 mg 06/04/16 09:00 06/28/16 08:32 Ecotrin PO 81 mg DAILY [facility] Administration Baclofen 10 mg 06/04/16 22:00 06/27/16 21:20 Lioresal PO 10 mg HS [facility] Administration Enoxaparin Sodium 40 mg 06/04/16 09:00 06/28/16 08:31 Lovenox SC 40 mg DAILY [facility] Administration Protocol Gabapentin 600 mg 06/24/16 22:00 06/28/16 06:07 Neurontin PO 600 mg Q8H [facility] Administration Guaifenesin 600 mg 06/25/16 21:00 06/28/16 08:33 Mucinex La PO 600 mg Q12 [facility] Administration Meropenem 1 gm/ Sodium 100 mls @ 100 mls/hr 06/19/16 08:00 06/28/16 07:37 Chloride IVPB 100 mls/hr Q12@0800,2000 [facility] Administration Hydrocortisone Sodium 100 mls @ 100 mls/hr 06/21/16 17:00 06/28/16 10:58 Succinate 100 mg/ Sodium IV 100 mls/hr Chloride Q8 [facility] Administration Piperacillin Sod/Tazobactam 100 mls @ 100 mls/hr 06/24/16 17:00 06/28/16 08:05 Sod 3.375 gm/ Sodium Chloride IVPB 100 mls/hr Q8 [facility] Administration Linezolid 300 mls @ 300 mls/hr 06/27/16 21:00 06/28/16 10:01 Zyvox 600mg/300ml D5w IVPB 300 mls/hr Q12 [facility] Administration Lactobacillus Acidophilus 1 cap 06/04/16 17:00 06/28/16 08:33 Bacid Acidophilus PO 1 cap BID [facility] Administration Loperamide HCl 2 mg 06/28/16 11:47 06/28/16 12:54 Imodium PO 2 mg QID PRN Administration Loose stools Multi-Ingredient Cream 1 applic 06/07/16 10:00 06/28/16 09:12 Hydrocerin Cream TOP 1 applic BID [facility] Administration Multivitamins/Minerals 1 tab 06/04/16 09:00 06/28/16 08:32 Therapeutic-M Tab PO 1 tab DAILY [facility] Administration Oxycodone/Acetaminophen 1 tab 06/28/16 10:40 06/28/16 10:55 Percocet 5/325 Mg Tab PO 07/01/16 10:41 1 tab Q4 PRN Administration Pain, moderate (4-7) Pantoprazole Sodium 40 mg 06/04/16 09:00 06/28/16 08:32 Protonix Ec Tab PO 40 mg DAILY [facility] Administration Potassium Chloride 40 meq 06/28/16 13:51 Potassium Chloride Oral Soln PO 06/28/16 13:52 ONCE ONE Spironolactone 25 mg 06/27/16 09:00 06/28/16 08:32 Aldactone PO 25 mg BID [facility] Administration Theophylline 600 mg 06/22/16 09:00 06/28/16 08:32 Uniphyl PO 600 mg DAILY [facility] Administration Verapamil HCl 40 mg 06/24/16 22:00 06/28/16 06:08 Calan Tab PO 40 mg Q8H [facility] Administration Zolpidem Tartrate 5 mg 06/14/16 22:14 06/27/16 21:28 Ambien PO 5 mg HS PRN Administration Sleep - Patient Studies Lab Studies: Microbiology Studies 06/24/16 11:45 Gram Stain - Final Abscess - Abscess Wound Culture - Final Vancomycin Resistant E.faecium Amanda Albicans 06/24/16 16:00 Gram Stain - Final Other: Please Indicate Body Fluid Culture - Preliminary NO GROWTH AFTER 3 DAYS Lab Studies 06/28/16 06/28/16 Range/Units 11:34 04:10 WBC 10.8 (4.8-10.8) K/uL RBC 4.50 (3.80-5.20) Mil/uL Hgb 11.4 L (12.0-16.0) g/dL Hct 36.7 (34.0-47.0) % MCV 81.5 (81.0-99.0) fl MCH 25.2 L (27.0-31.0) pg MCHC 30.9 L (33.0-37.0) g/dL RDW 32.7 H (11.5-14.5) % Plt Count 280 (130-400) K/uL Sodium 136 141 (132-148) mmol/l Potassium 3.2 L 2.1 L* (3.6-5.0) MMOL/L Chloride 98 97 L (98-107) mmol/L Carbon Dioxide 36 H 37 H (22-30) mmol/L Anion Gap 5 L 9 L (10-20) BUN 14 15 (7-17) mg/dl Creatinine 0.5 L 0.5 L (0.7-1.2) mg/dL Est GFR ( Amer) > 60 > 60 Est GFR (Non-Af Amer) > 60 > 60 Random Glucose 172 H 100 (65-105) mg/dL Calcium 7.7 L 7.8 L (8.4-10.2) mg/dL Magnesium 2.0 (1.6-2.3) MG/DL Laboratory Results - last 24 hr 06/28/16 06/28/16 04:10 11:34 WBC 10.8 RBC 4.50 Hgb 11.4 L Hct 36.7 MCV 81.5 MCH 25.2 L MCHC 30.9 L RDW 32.7 H Plt Count 280 Sodium 141 136 Potassium 2.1 L* 3.2 L Chloride 97 L 98 Carbon Dioxide 37 H 36 H Anion Gap 9 L 5 L BUN 15 14 Creatinine 0.5 L 0.5 L Est GFR ( Amer) > 60 > 60 Est GFR (Non-Af Amer) > 60 > 60 Random Glucose 100 172 H Calcium 7.8 L 7.7 L Magnesium 2.0 Review of Systems - Review of Systems All systems: reviewed and no additional remarkable complaints except - EENT Nose/Mouth/Throat: Facial Pain Critical Care Progress Note - Nutrition Nutrition: Nutrition Category Date Time Status Regular Diet [DIET] Diets 06/11/16 Dinner Active Assessment/Plan (1) Acute respiratory failure with hypoxia Assessment and plan: 66yo F. PMHx hyperthyroidism, COPD, p/w right mandibular abscess c/b acute exacerbation of chronic COPD. Neuro: no acute issues, alert and oriented x 3 Pulm: acute hypoxic respiratory failure, currently on high flow oxygen. Continue Duonebs, mucomyst nebs, guaifenesin po, theophylline po, hydrocortisone 50 mg q8h, titrating down. CV: hemodynamically stable. HTN controlled with verapamil and aldactone. Renal: severe hypokalemia, supplemented, continue aldactone bid. chronic metabolic alkalosis (prior to steroids), unsure of etiology. patient has been having frequent bowel movements, but not diarrhea. Renal consulted. Amiloride did not work, most likely not Lucia's syndrome. Called Dr. Parada - Renal, r/o primary aldosteronism. starting Kdur 40meq q4h, f/u urine chloride/ aldosterone/renin levels (sent on 06/26). GI: regular diet with ensure supplementation ID: severe sepsis from right mandibular abscess with osteomyelitis, continue Zosyn, Meropenem, and clindamycin. DVT proph - lovenox GI proph - protonix Full code Critical Care time 35 minutes Current Visit: Yes Status: Acute
--- NOTE | 2016-06-28 18:44 | CP.PCM.PN ---
Subjective - Date & Time of Evaluation Date of Evaluation: 06/28/16 Time of Evaluation: 18:32 - Subjective Subjective: ID NOTE STARTED ON IV ZYVOX FOR ENTEROCOCCUS (VRE) GROWN IN SURGICAL DRAINAGE WELL FUNGUS HAVE ALSO ADDED DIFLUCAN STILL SOB BUT IMPROVING Objective - Vital Signs/Intake and Output Vital Signs (last 24 hours): Temp Pulse Resp BP Pulse Ox 97.7 F 125 H 23 110/66 94 L 06/28/16 16:00 06/28/16 16:00 06/28/16 16:08 06/28/16 16:00 06/28/16 16:00 Intake and Output: 06/28/16 06/28/16 06:59 18:59 Intake Total 1000 1460 Output Total 1100 Balance -100 1460 - Medications Medications: Current Medications Acetaminophen (Tylenol 325mg Tab) 650 mg PO Q6 PRN PRN Reason: Pain, moderate (4-7) Last Admin: 06/28/16 01:46 Dose: 650 mg Acetylcysteine (Mucomyst 10% 4ml) 2 ml IH RBID [facility] Last Admin: 06/28/16 08:04 Dose: 2 ml Albuterol Sulfate (Albuterol 0.083% Inhal Aby (2.5 Mg/3 Ml) Ud) 2.5 mg INH RQ4 PRN PRN Reason: Shortness of Breath Last Admin: 06/22/16 18:21 Dose: 2.5 mg Albuterol/Ipratropium (Duoneb 3 Mg/0.5 Mg (3 Ml) Ud) 3 ml INH RQID [facility] Last Admin: 06/28/16 15:28 Dose: 3 ml Alprazolam (Xanax) 0.25 mg PO Q12 PRN PRN Reason: Anxiety Stop: 07/01/16 15:23 Last Admin: 06/26/16 21:18 Dose: 0.25 mg Anastrozole (Arimidex 1 Mg Tab) 1 mg PO DAILY [facility] Last Admin: 06/28/16 08:31 Dose: 1 mg Aspirin (Ecotrin) 81 mg PO DAILY [facility] Last Admin: 06/28/16 08:32 Dose: 81 mg Baclofen (Lioresal) 10 mg PO HS [facility] Last Admin: 06/27/16 21:20 Dose: 10 mg Enoxaparin Sodium (Lovenox) 40 mg SC DAILY [facility] PRN Reason: Protocol Last Admin: 06/28/16 08:31 Dose: 40 mg Gabapentin (Neurontin) 600 mg PO Q8H [facility] Last Admin: 06/28/16 14:10 Dose: 600 mg Guaifenesin (Mucinex La) 600 mg PO Q12 [facility] Last Admin: 06/28/16 08:33 Dose: 600 mg Meropenem 1 gm/ Sodium (Chloride) 100 mls @ 100 mls/hr IVPB Q12@0800,2000 [facility] Last Admin: 06/28/16 07:37 Dose: 100 mls/hr Hydrocortisone Sodium Succinate 100 mg/ Sodium Chloride 100 mls @ 100 mls/hr IV Q8 [facility] Last Admin: 06/28/16 16:44 Dose: 100 mls/hr Piperacillin Sod/Tazobactam (Sod 3.375 gm/ Sodium Chloride) 100 mls @ 100 mls/ hr IVPB Q8 [facility] Last Admin: 06/28/16 17:11 Dose: 100 mls/hr Linezolid (Zyvox 600mg/300ml D5w) 300 mls @ 300 mls/hr IVPB Q12 [facility] Last Admin: 06/28/16 10:01 Dose: 300 mls/hr Lactobacillus Acidophilus (Bacid Acidophilus) 1 cap PO BID [facility] Last Admin: 06/28/16 17:09 Dose: 1 cap Loperamide HCl (Imodium) 2 mg PO QID PRN PRN Reason: Loose stools Last Admin: 06/28/16 12:54 Dose: 2 mg Multi-Ingredient Cream (Hydrocerin Cream) 1 applic TOP BID [facility] Last Admin: 06/28/16 17:10 Dose: 1 applic Multivitamins/Minerals (Therapeutic-M Tab) 1 tab PO DAILY [facility] Last Admin: 06/28/16 08:32 Dose: 1 tab Oxycodone/Acetaminophen (Percocet 5/325 Mg Tab) 1 tab PO Q4 PRN PRN Reason: Pain, moderate (4-7) Stop: 07/01/16 10:41 Last Admin: 06/28/16 10:55 Dose: 1 tab Pantoprazole Sodium (Protonix Ec Tab) 40 mg PO DAILY [facility] Last Admin: 06/28/16 08:32 Dose: 40 mg Potassium Chloride (K-Dur 20 Meq Er Tab) 40 meq PO Q4H [facility] Spironolactone (Aldactone) 25 mg PO BID [facility] Last Admin: 06/28/16 17:10 Dose: 25 mg Theophylline (Uniphyl) 600 mg PO DAILY [facility] Last Admin: 06/28/16 08:32 Dose: 600 mg Verapamil HCl (Calan Tab) 40 mg PO Q8H [facility] Last Admin: 06/28/16 14:09 Dose: 40 mg Zolpidem Tartrate (Ambien) 5 mg PO HS PRN PRN Reason: Sleep Last Admin: 06/27/16 21:28 Dose: 5 mg - Labs Labs: 06/28/16 04:10 06/28/16 11:34 PT 11.0 SECONDS (9.6-11.2) 06/09/16 04:10 INR 1.06 (0.92-1.08) 06/09/16 04:10 APTT 27.5 SECONDS (23.3-32.5) 06/03/16 22:33
[2016-06-28] MEDS: Potassium Chloride 20 mEq ER Tab PO SCH (22:21)
[2016-06-29] MEDS: Albuterol 0.083% Inhal Sol (2.5 mg/3 mL) UD INH PRN (01:09)
[2016-06-29] MEDS: Piperacillin/Tazobact 3.375 GM in Sodium Chloride 0.9% 100 ML IVPB SCH ×3 (01:30→16:42)
[2016-06-29] MEDS: Potassium Chloride 20 mEq ER Tab PO SCH ×3 (02:26→09:27)
[2016-06-29 05:26] LABS: BLOOD UREA NITROGEN 14 mg/dl (7-17); CALCIUM 8.4 mg/dL (8.4-10.2); CARBON DIOXIDE 35 mmol/L (22-30); CHLORIDE 101 mmol/L (98-107); GFR AFRICAN-AMERICAN > 60; GLUCOSE,RANDOM 151 mg/dL (65-105); POTASSIUM 3.2 MMOL/L (3.6-5.0); SODIUM 141 mmol/l (132-148)
[2016-06-29 05:33] LABS: T4 6.15 ug/dl (5.5-11.0)
[2016-06-29 05:35] LABS: CHLORIDE URINE 186 mmol/L (32-290)
[2016-06-29 05:46] LABS: THYROID STIMULATING HORMONE 0.03 mIU/ML (0.46-4.68)
[2016-06-29] MEDS: Hydrocortisone- 100 MG in Sodium Chloride 0.9% 100 ML IV SCH ×2 (06:49→20:00)
[2016-06-29] MEDS: Albuterol-Ipratrop 3 mg / 0.5 (3 ml) UD INH SCH ×4 (07:47→19:26)
[2016-06-29] MEDS: Acetylcysteine 10% 4 ML IH SCH ×2 (07:48→19:26)
[2016-06-29] MEDS ORDERED: Potassium Chloride 20 mEq/15 ml LIQ UD PO ONE (09:05)
[2016-06-29] MEDS: Lactobacillus Acidophilus 500 MU Cap PO SCH ×2 (09:25→16:41)
[2016-06-29] MEDS: Hydrocerin CREAM TOP SCH (09:26)
[2016-06-29] MEDS: Enoxaparin 40 mg Syringe SC SCH (09:27)
[2016-06-29] MEDS: Meropenem 1 GM in Sodium Chloride 0.9% 100 ML IVPB SCH ×2 (09:28→20:00)
[2016-06-29] MEDS: guaiFENesin 600 mg ER Tab PO SCH ×2 (09:29→21:40)
[2016-06-29] MEDS: Pantoprazole 40 mg EC Tab PO SCH (09:30)
[2016-06-29] MEDS: Multivitamin With Minerals Tab PO SCH (09:30)
[2016-06-29] MEDS: THEOPHYLLINE 400 MG T24(UNIPHYL) PO SCH (09:30)
[2016-06-29] MEDS: Linezolid 600 mg in D5W 300 ml 300 ML IVPB SCH ×2 (09:33→22:00)
[2016-06-29] MEDS: Oxycodone/Acetaminophen 5/325 mg Tab PO PRN ×2 (09:40→23:01)
--- NOTE | 2016-06-29 10:58 | CP.PCM.PN ---
Subjective - Date & Time of Evaluation Date of Evaluation: 06/29/16 Time of Evaluation: 10:00 - Subjective Subjective: No fever facial abscess- same size, however still with some pain episodes of resp distress On High Flow Oxygen 25L/25 FiO2 tachycardic no abd pain multiple BM in a day - formed Objective - Vital Signs/Intake and Output Vital Signs (last 24 hours): Temp Pulse Resp BP Pulse Ox 98.4 F 120 H 20 128/79 92 L 06/29/16 08:00 06/29/16 08:00 06/29/16 08:42 06/29/16 08:00 06/29/16 08:00 Intake and Output: 06/29/16 06/29/16 06:59 18:59 Intake Total 1456 120 Output Total 1400 Balance 56 120 - Medications Medications: Current Medications Acetaminophen (Tylenol 325mg Tab) 650 mg PO Q6 PRN PRN Reason: Pain, moderate (4-7) Last Admin: 06/28/16 01:46 Dose: 650 mg Acetylcysteine (Mucomyst 10% 4ml) 2 ml IH RBID [facility] Last Admin: 06/29/16 07:48 Dose: 2 ml Albuterol Sulfate (Albuterol 0.083% Inhal Aby (2.5 Mg/3 Ml) Ud) 2.5 mg INH RQ4 PRN PRN Reason: Shortness of Breath Last Admin: 06/29/16 01:09 Dose: 2.5 mg Albuterol/Ipratropium (Duoneb 3 Mg/0.5 Mg (3 Ml) Ud) 3 ml INH RQID [facility] Last Admin: 06/29/16 07:47 Dose: 3 ml Alprazolam (Xanax) 0.25 mg PO Q12 PRN PRN Reason: Anxiety Stop: 07/01/16 15:23 Last Admin: 06/29/16 09:34 Dose: 0.25 mg Anastrozole (Arimidex 1 Mg Tab) 1 mg PO DAILY [facility] Last Admin: 06/29/16 09:23 Dose: 1 mg Aspirin (Ecotrin) 81 mg PO DAILY [facility] Last Admin: 06/29/16 09:26 Dose: 81 mg Baclofen (Lioresal) 10 mg PO HS [facility] Last Admin: 06/28/16 22:22 Dose: 10 mg Enoxaparin Sodium (Lovenox) 40 mg SC DAILY [facility] PRN Reason: Protocol Last Admin: 06/29/16 09:27 Dose: 40 mg Gabapentin (Neurontin) 600 mg PO Q8H [facility] Last Admin: 06/29/16 05:40 Dose: 600 mg Guaifenesin (Mucinex La) 600 mg PO Q12 [facility] Last Admin: 06/29/16 09:29 Dose: 600 mg Meropenem 1 gm/ Sodium (Chloride) 100 mls @ 100 mls/hr IVPB Q12@0800,2000 [facility] Last Admin: 06/29/16 09:28 Dose: 100 mls/hr Piperacillin Sod/Tazobactam (Sod 3.375 gm/ Sodium Chloride) 100 mls @ 100 mls/ hr IVPB Q8 [facility] Last Admin: 06/29/16 09:31 Dose: 100 mls/hr Linezolid (Zyvox 600mg/300ml D5w) 300 mls @ 300 mls/hr IVPB Q12 [facility] Last Admin: 06/29/16 09:33 Dose: 300 mls/hr Fluconazole (Diflucan Iv 200 Mg/100 Ml Ns) 100 mls @ 100 mls/hr IVPB DAILY [facility] Hydrocortisone Sodium Succinate 100 mg/ Sodium Chloride 100 mls @ 100 mls/hr IV Q12H [facility] Last Admin: 06/29/16 06:49 Dose: 100 mls/hr Lactobacillus Acidophilus (Bacid Acidophilus) 1 cap PO BID [facility] Last Admin: 06/29/16 09:25 Dose: 1 cap Loperamide HCl (Imodium) 2 mg PO QID PRN PRN Reason: Loose stools Last Admin: 06/29/16 09:34 Dose: 2 mg Methimazole (Tapazole) 5 mg PO DAILY [facility] Multi-Ingredient Cream (Hydrocerin Cream) 1 applic TOP BID [facility] Last Admin: 06/29/16 09:26 Dose: 1 applic Multivitamins/Minerals (Therapeutic-M Tab) 1 tab PO DAILY [facility] Last Admin: 06/29/16 09:30 Dose: 1 tab Oxycodone/Acetaminophen (Percocet 5/325 Mg Tab) 1 tab PO Q4 PRN PRN Reason: Pain, moderate (4-7) Stop: 07/01/16 10:41 Last Admin: 06/29/16 09:40 Dose: 1 tab Pantoprazole Sodium (Protonix Ec Tab) 40 mg PO DAILY [facility] Last Admin: 06/29/16 09:30 Dose: 40 mg Potassium Chloride (K-Dur 20 Meq Er Tab) 40 meq PO ONCE ONE Stop: 06/29/16 12:01 Spironolactone (Aldactone) 25 mg PO BID [facility] Last Admin: 06/29/16 09:22 Dose: 25 mg Theophylline (Uniphyl) 600 mg PO DAILY [facility] Last Admin: 06/29/16 09:30 Dose: 600 mg Verapamil HCl (Calan Tab) 40 mg PO Q8H [facility] Last Admin: 06/29/16 05:38 Dose: 40 mg Zolpidem Tartrate (Ambien) 5 mg PO HS PRN PRN Reason: Sleep Last Admin: 06/28/16 20:45 Dose: 5 mg - Labs Labs: 06/28/16 04:10 06/29/16 04:00 PT 11.0 SECONDS (9.6-11.2) 06/09/16 04:10 INR 1.06 (0.92-1.08) 06/09/16 04:10 APTT 27.5 SECONDS (23.3-32.5) 06/03/16 22:33 - Constitutional Appears: Chronically Ill, not in distress - Head Exam Head Exam: NORMAL INSPECTION, NORMOCEPHALIC - Eye Exam Eye Exam: EOMI, Normal appearance Pupil Exam: NORMAL ACCOMMODATION - ENT Exam ENT Exam: Mucous Membranes Dry, Normal External Ear Exam Additional comments: right facial swelling, + tenderness to touch - Neck Exam Neck Exam: Full ROM. absent: Meningismus - Respiratory Exam Respiratory Exam: + rhonchi , minimal rales bases, no wheezing on High Flow Oxygen - Cardiovascular Exam Cardiovascular Exam: REGULAR RHYTHM, +S1, +S2 - GI/Abdominal Exam GI & Abdominal Exam: Soft, Normal Bowel Sounds. absent: Tenderness - Extremities Exam Extremities Exam: Normal Capillary Refill, + pedal Pedal Edema Additional comments: abrasions LE right shoulder deformity RUE edema - Back Exam Back Exam: absent: CVA tenderness (L), CVA tenderness (R) - Neurological Exam Neurological Exam: Alert, Awake, CN II-XII Intact, Oriented x3 - Psychiatric Exam Psychiatric exam: Normal Affect, Normal Mood - Skin Skin Exam: Dry, Normal Color, Warm Assessment and Plan (1) Acute and chronic respiratory failure with hypercapnia Status: Acute (2) Osteomyelitis of mandible Status: Acute (3) Hypothyroidism Status: Acute (4) Acute exacerbation of chronic obstructive pulmonary disease (COPD) Status: Acute (5) HTN (hypertension) Status: Chronic (6) Hx of breast cancer Status: Chronic (7) Acute exacerbation of CHF (congestive heart failure) Status: Acute (8) Hypokalemia Status: Acute (9) Facial abscess Status: Acute (10) DVT prophylaxis Status: Acute - Assessment and Plan (Free Text) Assessment: 66 y/o female PMH COPD, bilateral breast CA s/p chemo and radiation 8 years ago with bone mets to shoulder (s/p humeral resection), HTN, Hyperthyroidism presented with 2 week history of worsening bilateral lower extremity swelling and weakness, unable to get herself up to her walker. Patient has mild dyspnea at baseline. She also came with a large right facial swelling for almost 2 weeks and was taking PO antibiotics prescribed by her dentist. Patient was admitted for generalized weakness , Hyponatremia and Facial abscess. She was started on IV antibiotics for facial abscess and Lasix IV with fluid restriction for LE edema. Maxillofacial Ct showed possible abscess accumulation. Evaluated by Oromaxillofacial surgeon and underwent Incision and drainage of abscess. Bone scan showed possible osteomyelitis . ID recommends 4-6 wks IV abx treatment. During this hospitalization noted to have increased dyspnea at rest and more so with minimal activity, decreased air entry bilaterally and increased work of breathing. She was started on high flow O2, Higher doses of theophylline and IV hydrocortisone. CTA chest and LE doppler showed no DVT. She was transferred to ICU for close monitoring for tachypnea and tachycardia. At present, still on High Flow Oxygen 25 LMP FIO2 25 % with good oxygenation but with episodes of resp distress and tachycardia . Facial abscess is tender- awaiting re-eval by Dr Ambrose. 1. Acute on Chronic Respiratory Insufficiency with hypercapnea Most likely secondary to COPD exacerbation with acute bronchitis and CHF exacerbation Still on high flow O2 via NC 25 L/min on FIO2 25 % with good oxygenation CT chest showed no PE and improved bilateral pleural effusion after diuresis LE doppler showed no DVT Diuretics changed to Aldactone bec of hypokalemia Continue Duonebs Continue Chest PT , Coughalator and Acapella therapy pulmonary consulted : Dr. Benz who is following pt closely Taper Hydrocortisone changed 100 mg IV Q12 and Theophylline to 600 mg Po daily on very low dose Xanax 0.25 bid prn as this seem to help when pt gets very anxious, tachypenic and tachycardic 2. Facial abscess with mandibular Osteomyelitis s/p drainage of abscess Maxillofacial Ct showed :Large enhancing wall collection seen around the mid and upper right mandibular ramus and mandibular neck extending anteriorly and seen medial and lateral to the right zygomatic arch. This collection contains foci of air. The density and the appearance of this collection suggestive of abscess formation. The collection is seen anterior to the right parotid gland and extending medially to the posterior right oral cavity. [id number] right maxillary sinus mucosal thickening and small air-fluid level. Partial opacification of both mastoids suggestive of mastoiditis. ID on consult: Dr Obrien. Recommended IV abx 6 wks total ( # ) OMFS Dr. Ambrose consulted and patient underwent Incision and drainage on 06/09 pathology report showed inflammatory cells, no malignancy Nuclear Bone Scan suggestive of osteomyelitis Tunneled central line placed for nursing home IV antibiotics- this will need to be d/c by IR after IV abx treatment is completed ( as discussed with Dr Gunter - pt was informed of need to see IR after abx tx) Antibiotics changed : now on Zyvox , Zosyn ,Meropenem and Fluconazole Pt underwent drainage of facial collection by IR on 06/24 and 24 ml yellow fluid obtained- c/s : VRE and Amanda ENT eval with Dr. Priest appreciated. He recommends maxillofacial evaluation for dental abscess , not parotitis. Dr Ambrose re consulted 3. Bilateral LE edema sec to CHF exacerbation with diastolic dysfxn worsened Le edema bilateral 3 + Echo showed EF 40-45 % and dilated RV continue fluid restriction still with 3 + bilateral LE edema Continue Aldactone 25 mg bid Lasix prn and replace K Promote ambulation CT chest showed bilateral small to moderate pleural effusion that improved after diuresis Podiatry consulted for dorsum pain and wound consult for LE abrasions 4.Hypokalemia multifactorial diuretic induced , Albuterol, Hypothyroidism - Lasix changed to Aldactone - KCl runs and PO -Nephro consulted- rec CT of abd 5.Hyponatremia, resolved most likely secondary to solute depletion and infection Continue fluid restriction 6.Hx breast ca, bilateral stable, s/p bilateral mastectomy continue arimidex 7.Hypertension on the low side d/c Metoprolol Increase Verapamil to 40 mg q6 as pt is tachycardic on aldactone 25 mg po BID 8. Hypothyroidism patient has history of hyperthyroidism and was on Methimazole - patient has developed hypothyroidism , Methimazole was d/c and she was started on Po levothyroxine- d/c levothyroxine as TSH went down TSH 41 - now down to 0.03 Endo consulted - Dr Vu following pt- dicussed case - rec to give Methimazole 10 mg stat then 5 mg daily 9. Anemia, chronic dis monitor anemia work up showed depleted iron stores Venofer IV given s/p 2 units PRBC transfusion 10. Right cephalic vein thrombosis ( superficial vein) on lovenox 11.DVT ppx lovenox
--- NOTE | 2016-06-29 11:08 | CP.PCM.PN ---
Subjective - Date & Time of Evaluation Date of Evaluation: 06/29/16 Time of Evaluation: 11:08 - Subjective Subjective: Continues to complain of frequent bowel movements, formed. Remains mildly tachycardic. Still very dyspneic on mild exertion. Right facial swelling seems unchanged from the day prior. Breath sounds are very diminished with prolonged E phase. No audible wheezes. + rhonchi and scattered rales bilaterally. Mild dependant edema, no cyanosis. Potassium is better but still low. Call out to Endocrine for update on hyperthyroid status. Antibiotics tailored for VRE and Amanda. Remains on High-Flow nasal O2. CXR flattened hemidiaphragms, blunted CP angles, no consolidation. Nephrology called because of persistent electrolyte imbalance. Objective - Vital Signs/Intake and Output Vital Signs (last 24 hours): Temp Pulse Resp BP Pulse Ox 98.4 F 120 H 20 128/79 92 L 06/29/16 08:00 06/29/16 08:00 06/29/16 08:42 06/29/16 08:00 06/29/16 08:00 Intake and Output: 06/28/16 06/29/16 23:59 11:59 Intake Total 1610 726 Output Total 800 600 Balance 810 126 - Medications Medications: Current Medications Acetaminophen (Tylenol 325mg Tab) 650 mg PO Q6 PRN PRN Reason: Pain, moderate (4-7) Last Admin: 06/28/16 01:46 Dose: 650 mg Acetylcysteine (Mucomyst 10% 4ml) 2 ml IH RBID [facility] Last Admin: 06/29/16 07:48 Dose: 2 ml Albuterol Sulfate (Albuterol 0.083% Inhal Aby (2.5 Mg/3 Ml) Ud) 2.5 mg INH RQ4 PRN PRN Reason: Shortness of Breath Last Admin: 06/29/16 01:09 Dose: 2.5 mg Albuterol/Ipratropium (Duoneb 3 Mg/0.5 Mg (3 Ml) Ud) 3 ml INH RQID [facility] Last Admin: 06/29/16 07:47 Dose: 3 ml Alprazolam (Xanax) 0.25 mg PO Q12 PRN PRN Reason: Anxiety Stop: 07/01/16 15:23 Last Admin: 06/29/16 09:34 Dose: 0.25 mg Anastrozole (Arimidex 1 Mg Tab) 1 mg PO DAILY [facility] Last Admin: 06/29/16 09:23 Dose: 1 mg Aspirin (Ecotrin) 81 mg PO DAILY [facility] Last Admin: 06/29/16 09:26 Dose: 81 mg Baclofen (Lioresal) 10 mg PO HS [facility] Last Admin: 06/28/16 22:22 Dose: 10 mg Enoxaparin Sodium (Lovenox) 40 mg SC DAILY [facility] PRN Reason: Protocol Last Admin: 06/29/16 09:27 Dose: 40 mg Gabapentin (Neurontin) 600 mg PO Q8H [facility] Last Admin: 06/29/16 05:40 Dose: 600 mg Guaifenesin (Mucinex La) 600 mg PO Q12 [facility] Last Admin: 06/29/16 09:29 Dose: 600 mg Meropenem 1 gm/ Sodium (Chloride) 100 mls @ 100 mls/hr IVPB Q12@0800,2000 [facility] Last Admin: 06/29/16 09:28 Dose: 100 mls/hr Piperacillin Sod/Tazobactam (Sod 3.375 gm/ Sodium Chloride) 100 mls @ 100 mls/ hr IVPB Q8 [facility] Last Admin: 06/29/16 09:31 Dose: 100 mls/hr Linezolid (Zyvox 600mg/300ml D5w) 300 mls @ 300 mls/hr IVPB Q12 [facility] Last Admin: 06/29/16 09:33 Dose: 300 mls/hr Fluconazole (Diflucan Iv 200 Mg/100 Ml Ns) 100 mls @ 100 mls/hr IVPB DAILY [facility] Hydrocortisone Sodium Succinate 100 mg/ Sodium Chloride 100 mls @ 100 mls/hr IV Q12H [facility] Last Admin: 06/29/16 06:49 Dose: 100 mls/hr Lactobacillus Acidophilus (Bacid Acidophilus) 1 cap PO BID [facility] Last Admin: 06/29/16 09:25 Dose: 1 cap Loperamide HCl (Imodium) 2 mg PO QID PRN PRN Reason: Loose stools Last Admin: 06/29/16 09:34 Dose: 2 mg Methimazole (Tapazole) 5 mg PO DAILY [facility] Multi-Ingredient Cream (Hydrocerin Cream) 1 applic TOP BID [facility] Last Admin: 06/29/16 09:26 Dose: 1 applic Multivitamins/Minerals (Therapeutic-M Tab) 1 tab PO DAILY [facility] Last Admin: 06/29/16 09:30 Dose: 1 tab Oxycodone/Acetaminophen (Percocet 5/325 Mg Tab) 1 tab PO Q4 PRN PRN Reason: Pain, moderate (4-7) Stop: 07/01/16 10:41 Last Admin: 06/29/16 09:40 Dose: 1 tab Pantoprazole Sodium (Protonix Ec Tab) 40 mg PO DAILY [facility] Last Admin: 06/29/16 09:30 Dose: 40 mg Potassium Chloride (K-Dur 20 Meq Er Tab) 40 meq PO ONCE ONE Stop: 06/29/16 12:01 Spironolactone (Aldactone) 25 mg PO BID [facility] Last Admin: 06/29/16 09:22 Dose: 25 mg Theophylline (Uniphyl) 600 mg PO DAILY [facility] Last Admin: 06/29/16 09:30 Dose: 600 mg Verapamil HCl (Calan Tab) 40 mg PO Q8H [facility] Last Admin: 06/29/16 05:38 Dose: 40 mg Zolpidem Tartrate (Ambien) 5 mg PO HS PRN PRN Reason: Sleep Last Admin: 06/28/16 20:45 Dose: 5 mg - Labs Labs: 06/28/16 04:10 06/29/16 04:00 PT 11.0 SECONDS (9.6-11.2) 06/09/16 04:10 INR 1.06 (0.92-1.08) 06/09/16 04:10 APTT 27.5 SECONDS (23.3-32.5) 06/03/16 22:33 Assessment and Plan (1) Acute bronchitis with chronic obstructive pulmonary disease (COPD) Status: Acute (2) Hyperthyroidism Status: Chronic (3) Abscess Status: Acute
--- NOTE | 2016-06-29 11:49 | CP.PCM.CON ---
History of Present Illness - History of Present Illness History of Present Illness: pt seen and examined, full consult is dictated #[id number] 1.HTn 2.met. alkalosis 3.hypokalemia r/o pHA check serum renin ,harish level consider ct scan of kidneys and adrenals to r/o adenoma agree with K+ supplement continue aldactone 25 mg po bid and titrate as needed d/w icu attending last evening regarding the plan. Past Patient History - Infectious Disease Hx of Infectious Diseases: MRSA - Tetanus Immunizations Tetanus Immunization: Unknown - Past Medical History & Family History Past Medical History?: Yes - Past Social History Smoking Status: Current Some Days Smoker Chewing Tobacco Use: No Cigar Use: No Alcohol: Social Drugs: Denies - CARDIAC Hx Cardiac Disorders: Yes Hx Hypertension: Yes - PULMONARY Hx Respiratory Disorders: Yes Hx Asthma: Yes Hx Chronic Obstructive Pulmonary Disease (COPD): Yes Hx Pneumonia: Yes - NEUROLOGICAL Hx Neurological Disorder: Yes Other/Comment: peripheral neuropathy right lower extremity. - HEENT Hx HEENT Problems: Yes Other/Comment: recent right buccal abscess with possible involvement of the mandible - RENAL Hx Chronic Kidney Disease: No - ENDOCRINE/METABOLIC Hx Endocrine Disorders: Yes Hx Hyperthyroidism: Yes (on methimazole) - HEMATOLOGICAL/ONCOLOGICAL Hx Blood Disorders: Yes Hx Bruising: Yes Hx Human Immunodeficiency Virus (HIV): No - INTEGUMENTARY Hx Dermatological Problems: No - MUSCULOSKELETAL/RHEUMATOLOGICAL Hx Musculoskeletal Disorders: Yes (Multiple fractures) Hx Falls: Yes Hx Osteoporosis: Yes - GASTROINTESTINAL Hx Gastrointestinal Disorders: Yes Hx Gall Bladder Disease: Yes - GENITOURINARY/GYNECOLOGICAL Hx Genitourinary Disorders: No - PSYCHIATRIC Hx Psychophysiologic Disorder: No Hx Substance Use: No - SURGICAL HISTORY Hx Surgeries: Yes Hx Mastectomy: Yes (right in 1998; left in 2008) Hx Orthopedic Surgery: Yes (2003 rigtht shoulder prosthesis, removal of hardware 2013) Hx Tubal Ligation: Yes Other/Comment: shoulder and humerous replacement with joint space infection and eventual removal of hardware in right shoulder and chronic lymphedema of RUE, groin cyst removal, cervical spinal fusion 2007, lumbar spinal fusion 2007. - ANESTHESIA Hx Anesthesia: Yes Hx Anesthesia Reactions: No Hx Malignant Hyperthermia: No Meds Allergies/Adverse Reactions: Allergies Allergy/AdvReac Type Severity Reaction Status Date / Time paper tape Allergy RASH Uncoded 06/03/16 21:31 - Medications Medications: Current Medications Acetaminophen (Tylenol 325mg Tab) 650 mg PO Q6 PRN PRN Reason: Pain, moderate (4-7) Last Admin: 06/28/16 01:46 Dose: 650 mg Acetylcysteine (Mucomyst 10% 4ml) 2 ml IH RBID [facility] Last Admin: 06/29/16 07:48 Dose: 2 ml Albuterol Sulfate (Albuterol 0.083% Inhal Aby (2.5 Mg/3 Ml) Ud) 2.5 mg INH RQ4 PRN PRN Reason: Shortness of Breath Last Admin: 06/29/16 01:09 Dose: 2.5 mg Albuterol/Ipratropium (Duoneb 3 Mg/0.5 Mg (3 Ml) Ud) 3 ml INH RQID [facility] Last Admin: 06/29/16 11:13 Dose: 3 ml Alprazolam (Xanax) 0.25 mg PO Q12 PRN PRN Reason: Anxiety Stop: 07/01/16 15:23 Last Admin: 06/29/16 09:34 Dose: 0.25 mg Anastrozole (Arimidex 1 Mg Tab) 1 mg PO DAILY [facility] Last Admin: 06/29/16 09:23 Dose: 1 mg Aspirin (Ecotrin) 81 mg PO DAILY [facility] Last Admin: 06/29/16 09:26 Dose: 81 mg Baclofen (Lioresal) 10 mg PO HS [facility] Last Admin: 06/28/16 22:22 Dose: 10 mg Enoxaparin Sodium (Lovenox) 40 mg SC DAILY [facility] PRN Reason: Protocol Last Admin: 06/29/16 09:27 Dose: 40 mg Gabapentin (Neurontin) 600 mg PO Q8H [facility] Last Admin: 06/29/16 05:40 Dose: 600 mg Guaifenesin (Mucinex La) 600 mg PO Q12 [facility] Last Admin: 06/29/16 09:29 Dose: 600 mg Meropenem 1 gm/ Sodium (Chloride) 100 mls @ 100 mls/hr IVPB Q12@0800,2000 [facility] Last Admin: 06/29/16 09:28 Dose: 100 mls/hr Piperacillin Sod/Tazobactam (Sod 3.375 gm/ Sodium Chloride) 100 mls @ 100 mls/ hr IVPB Q8 [facility] Last Admin: 06/29/16 09:31 Dose: 100 mls/hr Linezolid (Zyvox 600mg/300ml D5w) 300 mls @ 300 mls/hr IVPB Q12 [facility] Last Admin: 06/29/16 09:33 Dose: 300 mls/hr Fluconazole (Diflucan Iv 200 Mg/100 Ml Ns) 100 mls @ 100 mls/hr IVPB DAILY [facility] Hydrocortisone Sodium Succinate 100 mg/ Sodium Chloride 100 mls @ 100 mls/hr IV Q12H [facility] Last Admin: 06/29/16 06:49 Dose: 100 mls/hr Lactobacillus Acidophilus (Bacid Acidophilus) 1 cap PO BID [facility] Last Admin: 06/29/16 09:25 Dose: 1 cap Loperamide HCl (Imodium) 2 mg PO QID PRN PRN Reason: Loose stools Last Admin: 06/29/16 09:34 Dose: 2 mg Methimazole (Tapazole) 5 mg PO DAILY [facility] Multi-Ingredient Cream (Hydrocerin Cream) 1 applic TOP BID [facility] Last Admin: 06/29/16 09:26 Dose: 1 applic Multivitamins/Minerals (Therapeutic-M Tab) 1 tab PO DAILY [facility] Last Admin: 06/29/16 09:30 Dose: 1 tab Oxycodone/Acetaminophen (Percocet 5/325 Mg Tab) 1 tab PO Q4 PRN PRN Reason: Pain, moderate (4-7) Stop: 07/01/16 10:41 Last Admin: 06/29/16 09:40 Dose: 1 tab Pantoprazole Sodium (Protonix Ec Tab) 40 mg PO DAILY [facility] Last Admin: 06/29/16 09:30 Dose: 40 mg Potassium Chloride (K-Dur 20 Meq Er Tab) 40 meq PO ONCE ONE Stop: 06/29/16 12:01 Spironolactone (Aldactone) 25 mg PO BID [facility] Last Admin: 06/29/16 09:22 Dose: 25 mg Theophylline (Uniphyl) 600 mg PO DAILY [facility] Last Admin: 06/29/16 09:30 Dose: 600 mg Verapamil HCl (Calan Tab) 40 mg PO Q6 [facility] Zolpidem Tartrate (Ambien) 5 mg PO HS PRN PRN Reason: Sleep Last Admin: 06/28/16 20:45 Dose: 5 mg Results - Vital Signs Recent Vital Signs: Last Vital Signs Temp 98.4 F 06/29/16 08:00 Pulse 120 H 06/29/16 08:00 Resp 20 06/29/16 08:42 BP 128/79 06/29/16 08:00 Pulse Ox 92 L 06/29/16 08:00 - Labs Result Diagrams: 06/28/16 04:10 06/29/16 04:00 Labs: Laboratory Results - last 24 hr 06/26/16 06/28/16 06/29/16 18:00 11:34 04:00 Sodium 136 141 Potassium 3.2 L 3.2 L Chloride 98 101 Carbon Dioxide 36 H 35 H Anion Gap 5 L 8 L BUN 14 14 Creatinine 0.5 L 0.6 L Est GFR ( Amer) > 60 > 60 Est GFR (Non-Af Amer) > 60 > 60 Random Glucose 172 H 151 H Calcium 7.7 L 8.4 Free T4 0.92 Thyroxine (T4) 6.15 TSH 3rd Generation 0.03 L Urine Chloride 186
[2016-06-29] MEDS ORDERED: Potassium Chloride 20 mEq ER Tab PO ONE (12:00)
--- NOTE | 2016-06-29 12:52 | RAD ---
HISTORY: SOB COMPARISON: 06/24/2016 FINDINGS: LUNGS: No pulmonary infiltrate. PLEURA: Blunting of both costophrenic angles. Small pleural effusion versus chronic pleural thickening. Unchanged. No pneumothorax. CARDIOVASCULAR: Normal. Right central venous infusion port OSSEOUS STRUCTURES: Status post amputation proximal right humerus. VISUALIZED UPPER ABDOMEN: Normal. OTHER FINDINGS: None. IMPRESSION: Blunting of both costophrenic angles common nonspecific. No infiltrate. Amputation proximal right humerus. No change.
--- NOTE | 2016-06-29 13:07 | CP.PCM.PN ---
Subjective - Date & Time of Evaluation Date of Evaluation: 06/29/16 Time of Evaluation: 13:04 - Subjective Subjective: Pt 's afebrile , still in respiratory distress. The right mandibular mass is much smaller. 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 Pain fairly well controlled by percocet. CBC stable Objective - Vital Signs/Intake and Output Vital Signs (last 24 hours): Temp Pulse Resp BP Pulse Ox 98.4 F 134 H 16 123/78 97 06/29/16 12:00 06/29/16 12:00 06/29/16 12:00 06/29/16 12:00 06/29/16 12:00 Intake and Output: 06/29/16 06/29/16 06:59 18:59 Intake Total 1456 870 Output Total 1400 Balance 56 870 - Medications Medications: Current Medications Acetaminophen (Tylenol 325mg Tab) 650 mg PO Q6 PRN PRN Reason: Pain, moderate (4-7) Last Admin: 06/28/16 01:46 Dose: 650 mg Acetylcysteine (Mucomyst 10% 4ml) 2 ml IH RBID [facility] Last Admin: 06/29/16 07:48 Dose: 2 ml Albuterol Sulfate (Albuterol 0.083% Inhal Aby (2.5 Mg/3 Ml) Ud) 2.5 mg INH RQ4 PRN PRN Reason: Shortness of Breath Last Admin: 06/29/16 01:09 Dose: 2.5 mg Albuterol/Ipratropium (Duoneb 3 Mg/0.5 Mg (3 Ml) Ud) 3 ml INH RQID [facility] Last Admin: 06/29/16 11:13 Dose: 3 ml Alprazolam (Xanax) 0.25 mg PO Q12 PRN PRN Reason: Anxiety Stop: 07/01/16 15:23 Last Admin: 06/29/16 09:34 Dose: 0.25 mg Anastrozole (Arimidex 1 Mg Tab) 1 mg PO DAILY [facility] Last Admin: 06/29/16 09:23 Dose: 1 mg Aspirin (Ecotrin) 81 mg PO DAILY [facility] Last Admin: 06/29/16 09:26 Dose: 81 mg Baclofen (Lioresal) 10 mg PO HS [facility] Last Admin: 06/28/16 22:22 Dose: 10 mg Enoxaparin Sodium (Lovenox) 40 mg SC DAILY [facility] PRN Reason: Protocol Last Admin: 06/29/16 09:27 Dose: 40 mg Gabapentin (Neurontin) 600 mg PO Q8H [facility] Last Admin: 06/29/16 05:40 Dose: 600 mg Guaifenesin (Mucinex La) 600 mg PO Q12 [facility] Last Admin: 06/29/16 09:29 Dose: 600 mg Meropenem 1 gm/ Sodium (Chloride) 100 mls @ 100 mls/hr IVPB Q12@0800,2000 [facility] Last Admin: 06/29/16 09:28 Dose: 100 mls/hr Piperacillin Sod/Tazobactam (Sod 3.375 gm/ Sodium Chloride) 100 mls @ 100 mls/ hr IVPB Q8 [facility] Last Admin: 06/29/16 09:31 Dose: 100 mls/hr Linezolid (Zyvox 600mg/300ml D5w) 300 mls @ 300 mls/hr IVPB Q12 [facility] Last Admin: 06/29/16 09:33 Dose: 300 mls/hr Fluconazole (Diflucan Iv 200 Mg/100 Ml Ns) 100 mls @ 100 mls/hr IVPB DAILY [facility] Hydrocortisone Sodium Succinate 100 mg/ Sodium Chloride 100 mls @ 100 mls/hr IV Q12H [facility] Last Admin: 06/29/16 06:49 Dose: 100 mls/hr Lactobacillus Acidophilus (Bacid Acidophilus) 1 cap PO BID [facility] Last Admin: 06/29/16 09:25 Dose: 1 cap Loperamide HCl (Imodium) 2 mg PO QID PRN PRN Reason: Loose stools Last Admin: 06/29/16 09:34 Dose: 2 mg Methimazole (Tapazole) 5 mg PO DAILY [facility] Multi-Ingredient Cream (Hydrocerin Cream) 1 applic TOP BID [facility] Last Admin: 06/29/16 09:26 Dose: 1 applic Multivitamins/Minerals (Therapeutic-M Tab) 1 tab PO DAILY [facility] Last Admin: 06/29/16 09:30 Dose: 1 tab Oxycodone/Acetaminophen (Percocet 5/325 Mg Tab) 1 tab PO Q4 PRN PRN Reason: Pain, moderate (4-7) Stop: 07/01/16 10:41 Last Admin: 06/29/16 09:40 Dose: 1 tab Pantoprazole Sodium (Protonix Ec Tab) 40 mg PO DAILY [facility] Last Admin: 06/29/16 09:30 Dose: 40 mg Spironolactone (Aldactone) 25 mg PO BID [facility] Last Admin: 06/29/16 09:22 Dose: 25 mg Theophylline (Uniphyl) 600 mg PO DAILY [facility] Last Admin: 06/29/16 09:30 Dose: 600 mg Verapamil HCl (Calan Tab) 40 mg PO Q6 [facility] Zolpidem Tartrate (Ambien) 5 mg PO HS PRN PRN Reason: Sleep Last Admin: 06/28/16 20:45 Dose: 5 mg - Labs Labs: 06/28/16 04:10 06/29/16 04:00 PT 11.0 SECONDS (9.6-11.2) 06/09/16 04:10 INR 1.06 (0.92-1.08) 06/09/16 04:10 APTT 27.5 SECONDS (23.3-32.5) 06/03/16 22:33
--- NOTE | 2016-06-29 13:17 | PN ---
DATE: 06/29/2016 ROOM: 434. SUBJECTIVE: This is a 66-year-old female with extremes of fluctuations of her thyroid condition, pre senting here with moderate hypothyroidism and received levothyroxine replacement therapy and has sinc e then been taken off the aforementioned medications and over the last 3 days or so was reverted back to hyperthyroid accelerations as noted thereof. She has been taken off levothyroxine replacement th erapy from last week as noted. Her latest chemistry showed a BUN of 14, sodium 141, potassium 3.2, c hloride 101, CO2 35, glucose 151, and creatinine 0.6. Her repeat thyroid study showed a T4 of 6.15 w ith a free T4 of 0.92 and a TSH of 0.03, indicative of overt, although subclinical hyperthyroid accel erations as noted thereof. So. at this time, will start her back on therapy with Tapazole to b e given as 10 mg once daily as ordered, and we will also repeat the thyroid studies and adjust the do se accordingly as indicated. We will obtain serial chemistries and supplement accordingly as needed. We will follow. Polly Vu MD cc: [id number] TT: 06/29/2016 13:16:29 Confirmation # [id number] Dictation # [id number] [email or web address]
[2016-06-29] MEDS: Fluconazole IV 200mg/100 ml NS 100 ML IVPB SCH (15:04)
--- NOTE | 2016-06-29 16:00 | CP.CCUPN ---
CCU Subjective - Physician Review Events Since Last Encounter (Free Text): 06/29/16 18:15 The Patient was seen and examined at the bedside, Medical records reviewed, all clinical/lab/hemodynamic/radiographic data were reviewed and management issues were discussed and formulated, 66 Y/O F with PMHx of HTN, History of Hyperthyroidism (was on Methimazole), Hypothyroidism, severe COPD, Gall Bladder Disease and bilateral breast Cancer with bone mets to shoulder (s/p humerus resection, Humeral prosthesis placement and removal) S/p chemo/XRT 8 years ago Who initially presented to the Emergency department on 06/03 with complaints of bilateral leg swelling and weakness. x2 week. 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 06/18, Patient was transferred from Telemetry unit to ICU for close monitoring due to worsening respiratory status, more dyspnea and increased work of breathing despite being started on HFNC at FIO2 of 28% oxygen and 35 LPM flow Patient currently managed with Diuresis, IV Zosyn, clindamycin, Diflucan and Meropenem Zyvox added for VRE from facial mass Patient awake, oriented x 3, slightly more Comfortable, However still requiring HFNC No CP, Less SOB, no fever/chills On O2 supplement with High flow at FIO2 of 25% oxygen and 25 LPM flow Off BIPAP , no pressors Afebrile CCU Objective - Vital Signs / Intake & Output Vital Signs (Last 4 hours): Vital Signs Pulse BP 06/29/16 15:06 135 H 100/56 L Intake and Output (Last 8hrs): Intake & Output 06/29/16 06/29/16 06/29/16 06:59 14:59 22:59 Intake Total 1206 870 Output Total 1150 Balance 56 870 Weight 115 lb Intake: IV 56 20 Intake, Piggyback 500 600 Oral 650 250 Output: Urine 1150 Urethral (Gutierrez) 1150 Other: # Bowel Movements 1 1 - Physical Exam Head: Positive for: Atraumatic, Swelling Pupils: Positive for: PERRL Conjunctiva: Positive for: Normal Mouth: Positive for: Moist Mucous Membranes Pharnyx: Positive for: Normal Nose (External): Positive for: Atraumatic Neck: Positive for: Normal Range of Motion Respiratory/Chest: Positive for: Decreased Breath Sounds, Rhonchi Cardiovascular: Positive for: Tachycardic Abdomen: Positive for: Normal Bowel Sounds Upper Extremity: Positive for: Normal Inspection, NORMAL PULSES, Capillary Refill < 2s, Other (Rt arm swelling). Negative for: Cyanosis, Edema, Tenderness Lower Extremity: Positive for: Edema, NORMAL PULSES. Negative for: CALF TENDERNESS Neurological: Positive for: GCS=15, Speech Normal Skin: Positive for: Warm, Dry Psychiatric: Positive for: Alert, Oriented x 3 - Medications Active Medications: Active Medications Generic Name Dose Route Start Last Admin Trade Name Freq PRN Reason Stop Dose Admin Acetaminophen 650 mg 06/11/16 21:34 06/28/16 01:46 Tylenol 325mg Tab PO 650 mg Q6 PRN Administration Pain, moderate (4-7) Acetylcysteine 2 ml 06/22/16 20:00 06/29/16 07:48 Mucomyst 10% 4ml IH 2 ml RBID [facility] Administration Albuterol Sulfate 2.5 mg 06/07/16 09:55 06/29/16 01:09 Albuterol 0.083% Inhal Aby (2.5 Mg/3 Ml) Ud INH 2.5 mg RQ4 PRN Administration Shortness of Breath Albuterol/Ipratropium 3 ml 06/11/16 12:00 06/29/16 15:29 Duoneb 3 Mg/0.5 Mg (3 Ml) Ud INH 3 ml RQID [facility] Administration Alprazolam 0.25 mg 06/24/16 15:22 06/29/16 09:34 Xanax PO 07/01/16 15:23 0.25 mg Q12 PRN Administration Anxiety Anastrozole 1 mg 06/04/16 09:00 06/29/16 09:23 Arimidex 1 Mg Tab PO 1 mg DAILY [facility] Administration Aspirin 81 mg 06/04/16 09:00 06/29/16 09:26 Ecotrin PO 81 mg DAILY [facility] Administration Baclofen 10 mg 06/04/16 22:00 06/28/16 22:22 Lioresal PO 10 mg HS [facility] Administration Enoxaparin Sodium 40 mg 06/04/16 09:00 06/29/16 09:27 Lovenox SC 40 mg DAILY [facility] Administration Protocol Gabapentin 600 mg 06/24/16 22:00 06/29/16 15:05 Neurontin PO 600 mg Q8H [facility] Administration Guaifenesin 600 mg 06/25/16 21:00 06/29/16 09:29 Mucinex La PO 600 mg Q12 [facility] Administration Meropenem 1 gm/ Sodium 100 mls @ 100 mls/hr 06/19/16 08:00 06/29/16 09:28 Chloride IVPB 100 mls/hr Q12@0800,2000 [facility] Administration Piperacillin Sod/Tazobactam 100 mls @ 100 mls/hr 06/24/16 17:00 06/29/16 09:31 Sod 3.375 gm/ Sodium Chloride IVPB 100 mls/hr Q8 [facility] Administration Linezolid 300 mls @ 300 mls/hr 06/27/16 21:00 06/29/16 09:33 Zyvox 600mg/300ml D5w IVPB 300 mls/hr Q12 [facility] Administration Fluconazole 100 mls @ 100 mls/hr 06/29/16 09:00 06/29/16 15:04 Diflucan Iv 200 Mg/100 Ml Ns IVPB 100 mls/hr DAILY [facility] Administration Hydrocortisone Sodium 100 mls @ 100 mls/hr 06/28/16 19:45 06/29/16 06:49 Succinate 100 mg/ Sodium IV 100 mls/hr Chloride Q12H [facility] Administration Lactobacillus Acidophilus 1 cap 06/04/16 17:00 06/29/16 09:25 Bacid Acidophilus PO 1 cap BID [facility] Administration Loperamide HCl 2 mg 06/28/16 11:47 06/29/16 15:05 Imodium PO 2 mg QID PRN Administration Loose stools Methimazole 5 mg 06/30/16 09:00 Tapazole PO DAILY [facility] Multi-Ingredient Cream 1 applic 06/07/16 10:00 06/29/16 09:26 Hydrocerin Cream TOP 1 applic BID [facility] Administration Multivitamins/Minerals 1 tab 06/04/16 09:00 06/29/16 09:30 Therapeutic-M Tab PO 1 tab DAILY [facility] Administration Oxycodone/Acetaminophen 1 tab 06/28/16 10:40 06/29/16 09:40 Percocet 5/325 Mg Tab PO 07/01/16 10:41 1 tab Q4 PRN Administration Pain, moderate (4-7) Pantoprazole Sodium 40 mg 06/04/16 09:00 06/29/16 09:30 Protonix Ec Tab PO 40 mg DAILY [facility] Administration Spironolactone 25 mg 06/27/16 09:00 06/29/16 09:22 Aldactone PO 25 mg BID [facility] Administration Theophylline 600 mg 06/22/16 09:00 06/29/16 09:30 Uniphyl PO 600 mg DAILY [facility] Administration Verapamil HCl 40 mg 06/29/16 16:00 06/29/16 15:06 Calan Tab PO 40 mg Q6 [facility] Administration Zolpidem Tartrate 5 mg 06/14/16 22:14 06/28/16 20:45 Ambien PO 5 mg HS PRN Administration Sleep - Patient Studies Lab Studies: Microbiology Studies 06/24/16 16:00 Gram Stain - Final Other: Please Indicate Body Fluid Culture - Final No growth. Lab Studies 06/29/16 06/26/16 Range/Units 04:00 18:00 Sodium 141 (132-148) mmol/l Potassium 3.2 L (3.6-5.0) MMOL/L Chloride 101 (98-107) mmol/L Carbon Dioxide 35 H (22-30) mmol/L Anion Gap 8 L (10-20) BUN 14 (7-17) mg/dl Creatinine 0.6 L (0.7-1.2) mg/dL Est GFR ( Amer) > 60 Est GFR (Non-Af Amer) > 60 Random Glucose 151 H (65-105) mg/dL Calcium 8.4 (8.4-10.2) mg/dL Free T4 0.92 (0.78-2.19) ng/dL Thyroxine (T4) 6.15 (5.5-11.0) ug/dl TSH 3rd Generation 0.03 L (0.46-4.68) mIU/ML Urine Chloride 186 (32-290) mmol/L Laboratory Results - last 24 hr 06/26/16 06/29/16 18:00 04:00 Sodium 141 Potassium 3.2 L Chloride 101 Carbon Dioxide 35 H Anion Gap 8 L BUN 14 Creatinine 0.6 L Est GFR ( Amer) > 60 Est GFR (Non-Af Amer) > 60 Random Glucose 151 H Calcium 8.4 Free T4 0.92 Thyroxine (T4) 6.15 TSH 3rd Generation 0.03 L Urine Chloride 186 Critical Care Progress Note - Nutrition Nutrition: Nutrition Category Date Time Status Regular Diet [DIET] Diets 06/11/16 Dinner Active Assessment/Plan (1) Acute and chronic respiratory failure with hypercapnia Current Visit: Yes Status: Acute Comment: Continue Duonebs, HFNC, Theophylline, Diuresis (2) Acute exacerbation of CHF (congestive heart failure) Current Visit: Yes Status: Acute Comment: Echo 06/14: The systolic function is moderately impaired, EF 40-45 % and dilated RV with mild/mod deccrease RV function, diastolic inflow pattern is restrictive Diuresis, strict I&Os, daily Wt (3) Acute bronchitis with chronic obstructive pulmonary disease (COPD) Current Visit: No Status: Acute Priority: High Comment: Continue Duonebs INH RQID [facility], Suplemental O2 Via HFNC Methylprednisone IV 40mg q 24 tapered by Pulm Theophylline Acapella therapy (4) Osteomyelitis of mandible Current Visit: Yes Status: Acute Comment: Continue IV antibiotics as per ID Pain control with Percocet (5) Hx of breast cancer Current Visit: No Status: Chronic Priority: Low Comment: S/p bilateral mastectomy Continue Arimidex 1mg PO daily
[2016-06-29] MEDS ORDERED: methIMAzole 5 MG TAB PO SCH (17:00)
[2016-06-29] MEDS ORDERED: Iohexol 240 (50 ml) PO ONE (17:04)
[2016-06-30] MEDS: Piperacillin/Tazobact 3.375 GM in Sodium Chloride 0.9% 100 ML IVPB SCH ×3 (01:00→19:29)
[2016-06-30 05:08] LABS: HEMATOCRIT 36.5 % (34.0-47.0); MEAN CELL VOLUME 82.4 fl (81.0-99.0); MEAN CORPUSCULAR HEMOGLOBIN 25.4 pg (27.0-31.0); MEAN CORPUSCULAR HGB CONC 30.8 g/dL (33.0-37.0); RED CELL DISTRIBUTION WIDTH 33.2 % (11.5-14.5); WHITE BLOOD COUNT 16.3 K/uL (4.8-10.8)
[2016-06-30 05:16] LABS: BLOOD UREA NITROGEN 13 mg/dl (7-17); CALCIUM 8.4 mg/dL (8.4-10.2); CARBON DIOXIDE 36 mmol/L (22-30); CHLORIDE 103 mmol/L (98-107); GFR AFRICAN-AMERICAN > 60; GLUCOSE,RANDOM 113 mg/dL (65-105); POTASSIUM 4.2 MMOL/L (3.6-5.0); SODIUM 142 mmol/l (132-148)
[2016-06-30 05:39] LABS: THYROID STIMULATING HORMONE 0.03 mIU/ML (0.46-4.68)
[2016-06-30] MEDS: Acetylcysteine 10% 4 ML IH SCH ×2 (07:41→19:33)
[2016-06-30] MEDS: Albuterol-Ipratrop 3 mg / 0.5 (3 ml) UD INH SCH ×4 (07:41→19:33)
--- NOTE | 2016-06-30 08:50 | CON ---
DATE: 06/29/2016 The patient is located in ICU, room 434. REASON FOR RENAL CONSULTATION: Hypertension, metabolic alkalosis and severe hypokalemia and for further evaluation. HISTORY OF PRESENT ILLNESS: The patient is a 66-year-old very pleasant elderly female who was admitted 06/04/2016 through the ER with chief complaints of bilateral leg swelling for 1 week and also swelling of the right side of the face and oral abscess. The patient was also complaining of abdominal fullness, chronic cough and shortness of breath, nausea and diarrhea x 2 on admission. The patient was also complaining of tooth or gum abscess for about 1 month, and following with doctors for surgical repair, and the patient was taking ciprofloxacin for prophylactic treatment prior to the admission. Now , renal consult was requested for evaluation of the metabolic alkalosis and severe hypokalemia. The patient is not in acute distress and denies any chest pain, palpitations. Denies any fever or cough. At this time, patient complains of questionable diarrhea with frequently passing small amount of stool. Denies any dysuria or frequency. PAST MEDICAL HISTORY: Significant for breast cancer, bilateral, and status post chemotherapy and radiation about 8 years ago and bone metastasis with shoulder and humerus resection, and hypertension for about a year. Other past medical history includes asthma, COPD, hypertension, hyperthyroidism, breast CA and pneumonia. PAST SURGICAL HISTORY: Cardiac catheterization about a year ago, bilateral breast surgery. ALLERGIES: No known drug allergies. ALLERGIC TO PAPER TAPE. SOCIAL HISTORY: The patient is a smoker and smokes about 5 cigarettes per day, quit about 2 months ago, was a long time smoker. No alcohol, no drug abuse. PERSONAL HISTORY: She is a and she has 2 children. FAMILY HISTORY: Not significant. CURRENT MEDICATIONS: Include albuterol inhaler q. 4 hours, Aldactone 25 mg p.o. b.i.d., Ambien 5 mg p.o. at bedtime, Arimidex 1 mg p.o. daily (which is anastrozole), Bacid 1 capsule p.o. b.i.d., Diflucan 200 mg IV piggyback daily, DuoNeb inhaler, Ecotrin 81 mg daily, hydralazine cream topical b.i.d., hydrocortisone 100 mg q. 12 hours, Imodium 2 mg p.o. q.i.d., baclofen 10 mg p.o. at bedtime, Lovenox 40 mg subQ daily, Merrem 1 gram q. 12 hours, Mucinex 600 mg p.o. q. 12 hours, acetylcysteine 2 mL 10% percent b.i.d., Neurontin, Percocet, Zosyn 3.375 grams q. 8 hours, Protonix, methimazole 5 mg p.o. daily, multivitamins, Tylenol, theophylline, Xanax and Zyvox 600 mg IV q. 12 hours. REVIEW OF SYSTEMS: Significant for swelling of the right side of the face and some bilateral lower extremity swelling. All other review of systems are reviewed and are negative. PHYSICAL EXAMINATION: VITAL SIGNS: Blood pressure 128/79, pulse 82, respirations 21, temperature 98.4 , saturation 92%, height 5 feet 2 inches and weight is 115 pounds. GENERAL: The patient is a 66-year-old elderly female with swelling of the right upper extremity and status post surgery on the right shoulder. HEENT: Pupils normal reactive to light and accommodation. Conjunctivae pink. Sclerae anicteric. Tongue is moist. Trachea midline. LUNGS: Symmetric on both sides. Bilateral breath sounds present. Occasional rhonchi present in both lower bases. CARDIOVASCULAR: [place] in the fifth intercostal space midclavicular line. S1, S2 audible. Slightly tachycardic. No murmur or gallop. ABDOMEN: Normal in appearance, soft, tympanic. No guarding, no rigidity. No hepatosplenomegaly. CENTRAL NERVOUS SYSTEM: The patient is alert, awake, oriented x 3. Nonfocal on examination. Cranial nerves II through XII grossly intact. Sensorimotor system is within normal limits. EXTREMITIES: No cyanosis, no clubbing. The patient has 2+ edema in both lower extremities. LABORATORY DATA: Include: As of 06/28/2016: WBC 10. hemoglobin 11.4, hematocrit is 36.7, platelets 280. As of 06/27/2016: Sodium 141, potassium is 2, chloride 93, CO2 39, BUN 15, creatinine 0.3. As of 06/28/2016: Potassium is 2.1. As of 06/28/2016: Sodium 136, potassium 3.2, chloride 90, CO2 36, BUN 14, creatinine 0.5, glucose 172, calcium 7.7. As of 06/29/2016: Sodium 141, potassium 3.2, chloride 101, CO2 35, BUN 14, creatinine 0.6, glucose 151, calcium 8.4. Free thyroxine is 0.92 and thyroxine 6.15. TSH is 0.03. OTHER REPORTS: Wound culture of abscess as of 06/24/2016: Positive for Amanda albicans and VRE. CT of the chest as of 06/29/2016: Blunting of both costophrenic angles, nonspecific, and no infiltrate. Amputation of the proximal right humerus, no change. IN SUMMARY: The patient is a 66-year-old elderly female with a history of hypertension, chronic obstructive pulmonary disease, asthma, active smoker; breast cancer, status post surgery, radiation and chemotherapy, with metastasis to the bones, status post surgery for the right humerus and the shoulder, who was admitted with swelling of the right side of the face, being treated for abscess and also positive vancomycin-resistant enterococci and Amanda albicans, with low potassium and high bicarbonate, and stool Clostridium difficile toxin was negative on 06/25/2016 and 06/26/2016. 1. Hypertension with metabolic alkalosis and severe hypokalemia, rule out primary hyperaldosteronism. vs sec to diarrhea 2. Abscess of the gum and oral cavity. PLAN: Continue antibiotics as per ID recommendations. Check serum rennin and aldosterone level. Agree with the potassium supplement today 40 mEq p.o. x [address] scan of the adrenals with contrast to rule out adrenal adenoma. Will follow with you. Thank you for allowing me to participate in your patient's care. Randall Lerma MD cc: [id number] TT: 06/30/2016 08:26:20 Confirmation # [id number] Dictation # [id number] md 06/30/2016 07:49:43 [email or web address]
[2016-06-30] MEDS: Hydrocerin CREAM TOP SCH ×2 (09:00→17:30)
[2016-06-30] MEDS: Lactobacillus Acidophilus 500 MU Cap PO SCH ×2 (09:00→19:23)
[2016-06-30] MEDS: Meropenem 1 GM in Sodium Chloride 0.9% 100 ML IVPB SCH ×2 (09:35→20:00)
--- NOTE | 2016-06-30 09:54 | CP.PCM.PN ---
Subjective - Date & Time of Evaluation Date of Evaluation: 06/30/16 Time of Evaluation: 08:45 - Subjective Subjective: No fever WBC ct went up today to 16K had episode of agitation, tacypnea and tachycardia last night w/c resolved with Pain med and Xanax pasty stool- greenish early am accdg to RN no CP no abd pain Facial abscess sl tender Objective - Vital Signs/Intake and Output Vital Signs (last 24 hours): Temp Pulse Resp BP Pulse Ox 98 F 111 H 24 76/64 L 96 06/30/16 07:59 06/30/16 07:59 06/30/16 07:59 06/30/16 07:59 06/30/16 07:59 Intake and Output: 06/30/16 06/30/16 06:59 18:59 Intake Total 1280 Output Total 600 Balance 680 - Medications Medications: Current Medications Acetaminophen (Tylenol 325mg Tab) 650 mg PO Q6 PRN PRN Reason: Pain, moderate (4-7) Last Admin: 06/28/16 01:46 Dose: 650 mg Acetylcysteine (Mucomyst 10% 4ml) 2 ml IH RBID [facility] Last Admin: 06/30/16 07:41 Dose: 2 ml Albuterol Sulfate (Albuterol 0.083% Inhal Aby (2.5 Mg/3 Ml) Ud) 2.5 mg INH RQ4 PRN PRN Reason: Shortness of Breath Last Admin: 06/29/16 01:09 Dose: 2.5 mg Albuterol/Ipratropium (Duoneb 3 Mg/0.5 Mg (3 Ml) Ud) 3 ml INH RQID [facility] Last Admin: 06/30/16 07:41 Dose: 3 ml Alprazolam (Xanax) 0.25 mg PO Q12 PRN PRN Reason: Anxiety Stop: 07/01/16 15:23 Last Admin: 06/29/16 23:03 Dose: 0.25 mg Anastrozole (Arimidex 1 Mg Tab) 1 mg PO DAILY [facility] Last Admin: 06/29/16 09:23 Dose: 1 mg Aspirin (Ecotrin) 81 mg PO DAILY [facility] Last Admin: 06/29/16 09:26 Dose: 81 mg Baclofen (Lioresal) 10 mg PO HS [facility] Last Admin: 06/29/16 21:41 Dose: 10 mg Enoxaparin Sodium (Lovenox) 40 mg SC DAILY [facility] PRN Reason: Protocol Last Admin: 06/29/16 09:27 Dose: 40 mg Gabapentin (Neurontin) 600 mg PO Q8H [facility] Last Admin: 06/30/16 05:45 Dose: 600 mg Guaifenesin (Mucinex La) 600 mg PO Q12 [facility] Last Admin: 06/29/16 21:40 Dose: 600 mg Meropenem 1 gm/ Sodium (Chloride) 100 mls @ 100 mls/hr IVPB Q12@0800,2000 [facility] Last Admin: 06/29/16 20:00 Dose: 100 mls/hr Piperacillin Sod/Tazobactam (Sod 3.375 gm/ Sodium Chloride) 100 mls @ 100 mls/ hr IVPB Q8 [facility] Last Admin: 06/30/16 01:00 Dose: 100 mls/hr Linezolid (Zyvox 600mg/300ml D5w) 300 mls @ 300 mls/hr IVPB Q12 [facility] Last Admin: 06/29/16 22:00 Dose: 300 mls/hr Fluconazole (Diflucan Iv 200 Mg/100 Ml Ns) 100 mls @ 100 mls/hr IVPB DAILY [facility] Last Admin: 06/29/16 15:04 Dose: 100 mls/hr Hydrocortisone Sodium Succinate 100 mg/ Sodium Chloride 100 mls @ 100 mls/hr IV Q12H [facility] Last Admin: 06/29/16 20:00 Dose: 100 mls/hr Lactobacillus Acidophilus (Bacid Acidophilus) 1 cap PO BID [facility] Last Admin: 06/29/16 16:41 Dose: 1 cap Loperamide HCl (Imodium) 2 mg PO QID PRN PRN Reason: Loose stools Last Admin: 06/29/16 15:05 Dose: 2 mg Methimazole (Tapazole) 5 mg PO DAILY [facility] Multi-Ingredient Cream (Hydrocerin Cream) 1 applic TOP BID [facility] Last Admin: 06/29/16 09:26 Dose: 1 applic Multivitamins/Minerals (Therapeutic-M Tab) 1 tab PO DAILY [facility] Last Admin: 06/29/16 09:30 Dose: 1 tab Oxycodone/Acetaminophen (Percocet 5/325 Mg Tab) 1 tab PO Q4 PRN PRN Reason: Pain, moderate (4-7) Stop: 07/01/16 10:41 Last Admin: 06/29/16 23:01 Dose: 1 tab Pantoprazole Sodium (Protonix Ec Tab) 40 mg PO DAILY [facility] Last Admin: 06/29/16 09:30 Dose: 40 mg Spironolactone (Aldactone) 25 mg PO BID [facility] Last Admin: 06/29/16 16:40 Dose: 25 mg Theophylline (Uniphyl) 600 mg PO DAILY [facility] Last Admin: 06/29/16 09:30 Dose: 600 mg Verapamil HCl (Calan Tab) 40 mg PO Q6 [facility] Last Admin: 06/30/16 04:00 Dose: 40 mg Zolpidem Tartrate (Ambien) 5 mg PO HS PRN PRN Reason: Sleep Last Admin: 06/28/16 20:45 Dose: 5 mg - Labs Labs: 06/30/16 04:10 06/30/16 04:10 PT 11.0 SECONDS (9.6-11.2) 06/09/16 04:10 INR 1.06 (0.92-1.08) 06/09/16 04:10 APTT 27.5 SECONDS (23.3-32.5) 06/03/16 22:33 - Constitutional Appears: Chronically Ill - Head Exam Head Exam: NORMAL INSPECTION, NORMOCEPHALIC - Eye Exam Eye Exam: EOMI, Normal appearance Pupil Exam: NORMAL ACCOMMODATION - ENT Exam ENT Exam: Mucous Membranes Dry, Normal External Ear Exam Additional comments: right facial swelling, + tenderness to touch - Neck Exam Neck Exam: Full ROM. absent: Meningismus - Respiratory Exam Respiratory Exam: + rhonchi , minimal rales bases, no wheezing on High Flow Oxygen - Cardiovascular Exam Cardiovascular Exam: REGULAR RHYTHM, +S1, +S2. tachycardic - GI/Abdominal Exam GI & Abdominal Exam: Soft, Normal Bowel Sounds. absent: Tenderness - Extremities Exam Extremities Exam: Normal Capillary Refill, + pedal Pedal Edema Additional comments: abrasions LE right shoulder deformity RUE edema - Back Exam Back Exam: absent: CVA tenderness (L), CVA tenderness (R) - Neurological Exam Neurological Exam: Alert, Awake, CN II-XII Intact, Oriented x3 - Psychiatric Exam Psychiatric exam: Normal Affect, Normal Mood - Skin Skin Exam: Dry, Normal Color, Warm Assessment and Plan (1) Acute and chronic respiratory failure with hypercapnia Status: Acute (2) Osteomyelitis of mandible Status: Acute (3) Hypothyroidism Status: Acute (4) Acute exacerbation of chronic obstructive pulmonary disease (COPD) Status: Acute (5) HTN (hypertension) Status: Chronic (6) Hx of breast cancer Status: Chronic (7) Acute exacerbation of CHF (congestive heart failure) Status: Acute (8) Hypokalemia Status: Acute (9) Facial abscess Status: Acute (10) DVT prophylaxis Status: Acute - Assessment and Plan (Free Text) Assessment: 66 y/o female PMH COPD, bilateral breast CA s/p chemo and radiation 8 years ago with bone mets to shoulder (s/p humeral resection), HTN, Hyperthyroidism presented with 2 week history of worsening bilateral lower extremity swelling and weakness, unable to get herself up to her walker. Patient has mild dyspnea at baseline. She also came with a large right facial swelling for almost 2 weeks and was taking PO antibiotics prescribed by her dentist. Patient was admitted for generalized weakness , Hyponatremia and Facial abscess. She was started on IV antibiotics for facial abscess and Lasix IV with fluid restriction for LE edema. Maxillofacial Ct showed possible abscess accumulation. Evaluated by Oromaxillofacial surgeon and underwent Incision and drainage of abscess. Bone scan showed possible osteomyelitis . ID recommends 4-6 wks IV abx treatment. During this hospitalization noted to have increased dyspnea at rest and more so with minimal activity, decreased air entry bilaterally and increased work of breathing. She was started on high flow O2, Higher doses of theophylline and IV hydrocortisone. CTA chest and LE doppler showed no DVT. She was transferred to ICU for close monitoring for tachypnea and tachycardia. At present, still on High Flow Oxygen 25 LMP FIO2 25 % with good oxygenation but with episodes of resp distress and tachycardia . Facial abscess is tender- awaiting re-eval by Dr Ambrose. 1. Acute on Chronic Respiratory Insufficiency with hypercapnea Most likely secondary to COPD exacerbation with acute bronchitis and CHF exacerbation Still on high flow O2 via NC 25 L/min on FIO2 25 % with good oxygenation CT chest showed no PE and improved bilateral pleural effusion after diuresis LE doppler showed no DVT Diuretics changed to Aldactone bec of hypokalemia - decrease dose to once daily Continue Duonebs Continue Chest PT , Coughalator and Acapella therapy pulmonary consulted : Dr. Benz who is following pt closely Taper Hydrocortisone changed 100 mg IV Q12 and Theophylline to 600 mg Po daily on very low dose Xanax 0.25 bid prn as this seem to help when pt gets very anxious, tachypenic and tachycardic 2. Facial abscess with mandibular Osteomyelitis s/p drainage of abscess Maxillofacial Ct showed :Large enhancing wall collection seen around the mid and upper right mandibular ramus and mandibular neck extending anteriorly and seen medial and lateral to the right zygomatic arch. This collection contains foci of air. The density and the appearance of this collection suggestive of abscess formation. The collection is seen anterior to the right parotid gland and extending medially to the posterior right oral cavity. [id number] right maxillary sinus mucosal thickening and small air-fluid level. Partial opacification of both mastoids suggestive of mastoiditis. ID on consult: Dr Obrien. Recommended IV abx 6 wks total ( # ) OMFS Dr. 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 Priest appreciated. He recommends maxillofacial evaluation for dental abscess , not parotitis. Dr Ambrose re consulted - will come this evening 3. Bilateral LE edema sec to CHF exacerbation with diastolic dysfxn worsened Le edema bilateral 3 + Echo showed EF 40-45 % and dilated RV continue fluid restriction still with bilateral LE edema Continue Aldactone decrease to once [address] chest showed bilateral small to moderate pleural effusion that improved after diuresis Podiatry consulted for dorsum pain and wound consult for LE abrasions 4.Hypokalemia multifactorial diuretic induced , Albuterol, Hypothyroidism - Lasix changed to Aldactone - KCl runs and PO -Nephro consulted - CT of abd - no adrenal mass 5.Hyponatremia, resolved most likely secondary to solute depletion and infection Continue fluid restriction 6.Hx breast ca, bilateral stable, s/p bilateral mastectomy continue arimidex 7. Tachycardia Hx of HTN was on verapamil at home ( 80mg tid), BP on the low side at present d/c Verapamil - as may contribute to leg edema started low dose Coreg decrease Aldactone to 25 mg daily 8. Hypothyroidism patient has history of hyperthyroidism and was on Methimazole - patient has developed hypothyroidism , Methimazole was d/c and she was started on Po levothyroxine- d/c levothyroxine as TSH went down TSH 41 - now down to 0.03 Endo consulted - Dr Vu following pt- diicussed case - rec to give Methimazole 10 mg stat then 5 mg daily 9. Anemia, chronic dis monitor anemia work up showed depleted iron stores Venofer IV given s/p 2 units PRBC transfusion 10. Right cephalic vein thrombosis ( superficial vein) on lovenox 11.DVT ppx lovenox
[2016-06-30] MEDS: Enoxaparin 40 mg Syringe SC SCH (10:09)
[2016-06-30] MEDS: Hydrocortisone- 100 MG in Sodium Chloride 0.9% 100 ML IV SCH ×2 (10:10→20:00)
[2016-06-30] MEDS: Linezolid 600 mg in D5W 300 ml 300 ML IVPB SCH ×2 (10:11→20:12)
--- NOTE | 2016-06-30 10:32 | CP.PCM.PN ---
Subjective - Date & Time of Evaluation Date of Evaluation: 06/30/16 Time of Evaluation: 10:31 - Subjective Subjective: Pt is afebile, but less respiratory discomfort because of the pain medication given for the mandibular abscess.. CBC is stable. Pt is to be seen by the oral surgeon possibly today. Objective - Vital Signs/Intake and Output Vital Signs (last 24 hours): Temp Pulse Resp BP Pulse Ox 98 F 111 H 24 120/85 96 06/30/16 07:59 06/30/16 10:12 06/30/16 07:59 06/30/16 10:12 06/30/16 07:59 Intake and Output: 06/30/16 06/30/16 06:59 18:59 Intake Total 1280 Output Total 600 Balance 680 - Medications Medications: Current Medications Acetaminophen (Tylenol 325mg Tab) 650 mg PO Q6 PRN PRN Reason: Pain, moderate (4-7) Last Admin: 06/28/16 01:46 Dose: 650 mg Acetylcysteine (Mucomyst 10% 4ml) 2 ml IH RBID [facility] Last Admin: 06/30/16 07:41 Dose: 2 ml Albuterol Sulfate (Albuterol 0.083% Inhal Aby (2.5 Mg/3 Ml) Ud) 2.5 mg INH RQ4 PRN PRN Reason: Shortness of Breath Last Admin: 06/29/16 01:09 Dose: 2.5 mg Albuterol/Ipratropium (Duoneb 3 Mg/0.5 Mg (3 Ml) Ud) 3 ml INH RQID [facility] Last Admin: 06/30/16 07:41 Dose: 3 ml Alprazolam (Xanax) 0.25 mg PO Q12 PRN PRN Reason: Anxiety Stop: 07/01/16 15:23 Last Admin: 06/29/16 23:03 Dose: 0.25 mg Anastrozole (Arimidex 1 Mg Tab) 1 mg PO DAILY [facility] Last Admin: 06/29/16 09:23 Dose: 1 mg Aspirin (Ecotrin) 81 mg PO DAILY [facility] Last Admin: 06/29/16 09:26 Dose: 81 mg Baclofen (Lioresal) 10 mg PO HS [facility] Last Admin: 06/29/16 21:41 Dose: 10 mg Enoxaparin Sodium (Lovenox) 40 mg SC DAILY [facility] PRN Reason: Protocol Last Admin: 06/30/16 10:09 Dose: 40 mg Gabapentin (Neurontin) 600 mg PO Q8H [facility] Last Admin: 06/30/16 05:45 Dose: 600 mg Guaifenesin (Mucinex La) 600 mg PO Q12 [facility] Last Admin: 06/29/16 21:40 Dose: 600 mg Meropenem 1 gm/ Sodium (Chloride) 100 mls @ 100 mls/hr IVPB Q12@0800,2000 [facility] Last Admin: 06/29/16 20:00 Dose: 100 mls/hr Piperacillin Sod/Tazobactam (Sod 3.375 gm/ Sodium Chloride) 100 mls @ 100 mls/ hr IVPB Q8 [facility] Last Admin: 06/30/16 10:10 Dose: 100 mls/hr Linezolid (Zyvox 600mg/300ml D5w) 300 mls @ 300 mls/hr IVPB Q12 [facility] Last Admin: 06/30/16 10:11 Dose: 300 mls/hr Fluconazole (Diflucan Iv 200 Mg/100 Ml Ns) 100 mls @ 100 mls/hr IVPB DAILY [facility] Last Admin: 06/29/16 15:04 Dose: 100 mls/hr Hydrocortisone Sodium Succinate 100 mg/ Sodium Chloride 100 mls @ 100 mls/hr IV Q12H [facility] Last Admin: 06/30/16 10:10 Dose: 100 mls/hr Lactobacillus Acidophilus (Bacid Acidophilus) 1 cap PO BID [facility] Last Admin: 06/29/16 16:41 Dose: 1 cap Loperamide HCl (Imodium) 2 mg PO QID PRN PRN Reason: Loose stools Last Admin: 06/29/16 15:05 Dose: 2 mg Methimazole (Tapazole) 5 mg PO DAILY [facility] Multi-Ingredient Cream (Hydrocerin Cream) 1 applic TOP BID [facility] Last Admin: 06/29/16 09:26 Dose: 1 applic Multivitamins/Minerals (Therapeutic-M Tab) 1 tab PO DAILY [facility] Last Admin: 06/29/16 09:30 Dose: 1 tab Oxycodone/Acetaminophen (Percocet 5/325 Mg Tab) 1 tab PO Q4 PRN PRN Reason: Pain, moderate (4-7) Stop: 07/01/16 10:41 Last Admin: 06/29/16 23:01 Dose: 1 tab Pantoprazole Sodium (Protonix Ec Tab) 40 mg PO DAILY [facility] Last Admin: 06/29/16 09:30 Dose: 40 mg Spironolactone (Aldactone) 25 mg PO BID [facility] Last Admin: 06/30/16 10:12 Dose: 25 mg Theophylline (Uniphyl) 600 mg PO DAILY [facility] Last Admin: 06/29/16 09:30 Dose: 600 mg Verapamil HCl (Calan Tab) 40 mg PO Q6 [facility] Last Admin: 06/30/16 10:12 Dose: 40 mg Zolpidem Tartrate (Ambien) 5 mg PO HS PRN PRN Reason: Sleep Last Admin: 06/28/16 20:45 Dose: 5 mg - Labs Labs: 06/30/16 04:10 06/30/16 04:10 PT 11.0 SECONDS (9.6-11.2) 06/09/16 04:10 INR 1.06 (0.92-1.08) 06/09/16 04:10 APTT 27.5 SECONDS (23.3-32.5) 06/03/16 22:33
--- NOTE | 2016-06-30 11:15 | CP.PCM.PN ---
Subjective - Date & Time of Evaluation Date of Evaluation: 06/30/16 Time of Evaluation: 11:09 - Subjective Subjective: Interim events noted. Started on methimazole again yesterday. Seems slightly more comfortable this morning. Heart rate is slightly decreased from the day before. SOB seems slightly less than before. Facial swelling may be slightly less prominent today. Still unable to effectively expectorate. Breath sounds are very diminished bilaterally w/o audible wheezing. There are scattered lower lobe rhonchi on coughing. Dependant edema is less, no cyanosis. Will remain on antibiotics as per ID. OMF surgery revisit requested. Medical regimen will remain unchanged. Electrolyte imbalance ongoing (Maria Guadalupe). To remain on high flow nasal O2. Objective - Vital Signs/Intake and Output Vital Signs (last 24 hours): Temp Pulse Resp BP Pulse Ox 98 F 111 H 24 120/85 96 06/30/16 07:59 06/30/16 10:12 06/30/16 07:59 06/30/16 10:12 06/30/16 07:59 Intake and Output: 06/29/16 06/30/16 23:59 11:59 Intake Total 1190 340 Output Total 7500 600 Balance -6310 -260 - Medications Medications: Current Medications Acetaminophen (Tylenol 325mg Tab) 650 mg PO Q6 PRN PRN Reason: Pain, moderate (4-7) Last Admin: 06/28/16 01:46 Dose: 650 mg Acetylcysteine (Mucomyst 10% 4ml) 2 ml IH RBID [facility] Last Admin: 06/30/16 07:41 Dose: 2 ml Albuterol Sulfate (Albuterol 0.083% Inhal Aby (2.5 Mg/3 Ml) Ud) 2.5 mg INH RQ4 PRN PRN Reason: Shortness of Breath Last Admin: 06/29/16 01:09 Dose: 2.5 mg Albuterol/Ipratropium (Duoneb 3 Mg/0.5 Mg (3 Ml) Ud) 3 ml INH RQID [facility] Last Admin: 06/30/16 07:41 Dose: 3 ml Alprazolam (Xanax) 0.25 mg PO Q12 PRN PRN Reason: Anxiety Stop: 07/01/16 15:23 Last Admin: 06/29/16 23:03 Dose: 0.25 mg Anastrozole (Arimidex 1 Mg Tab) 1 mg PO DAILY [facility] Last Admin: 06/29/16 09:23 Dose: 1 mg Aspirin (Ecotrin) 81 mg PO DAILY [facility] Last Admin: 06/29/16 09:26 Dose: 81 mg Baclofen (Lioresal) 10 mg PO HS [facility] Last Admin: 06/29/16 21:41 Dose: 10 mg Enoxaparin Sodium (Lovenox) 40 mg SC DAILY [facility] PRN Reason: Protocol Last Admin: 06/30/16 10:09 Dose: 40 mg Gabapentin (Neurontin) 600 mg PO Q8H [facility] Last Admin: 06/30/16 05:45 Dose: 600 mg Guaifenesin (Mucinex La) 600 mg PO Q12 [facility] Last Admin: 06/29/16 21:40 Dose: 600 mg Meropenem 1 gm/ Sodium (Chloride) 100 mls @ 100 mls/hr IVPB Q12@0800,2000 [facility] Last Admin: 06/29/16 20:00 Dose: 100 mls/hr Piperacillin Sod/Tazobactam (Sod 3.375 gm/ Sodium Chloride) 100 mls @ 100 mls/ hr IVPB Q8 [facility] Last Admin: 06/30/16 10:10 Dose: 100 mls/hr Linezolid (Zyvox 600mg/300ml D5w) 300 mls @ 300 mls/hr IVPB Q12 [facility] Last Admin: 06/30/16 10:11 Dose: 300 mls/hr Fluconazole (Diflucan Iv 200 Mg/100 Ml Ns) 100 mls @ 100 mls/hr IVPB DAILY [facility] Last Admin: 06/29/16 15:04 Dose: 100 mls/hr Hydrocortisone Sodium Succinate 100 mg/ Sodium Chloride 100 mls @ 100 mls/hr IV Q12H [facility] Last Admin: 06/30/16 10:10 Dose: 100 mls/hr Lactobacillus Acidophilus (Bacid Acidophilus) 1 cap PO BID [facility] Last Admin: 06/29/16 16:41 Dose: 1 cap Loperamide HCl (Imodium) 2 mg PO QID PRN PRN Reason: Loose stools Last Admin: 06/29/16 15:05 Dose: 2 mg Methimazole (Tapazole) 5 mg PO DAILY [facility] Multi-Ingredient Cream (Hydrocerin Cream) 1 applic TOP BID [facility] Last Admin: 06/29/16 09:26 Dose: 1 applic Multivitamins/Minerals (Therapeutic-M Tab) 1 tab PO DAILY [facility] Last Admin: 06/29/16 09:30 Dose: 1 tab Oxycodone/Acetaminophen (Percocet 5/325 Mg Tab) 1 tab PO Q4 PRN PRN Reason: Pain, moderate (4-7) Stop: 07/01/16 10:41 Last Admin: 06/29/16 23:01 Dose: 1 tab Pantoprazole Sodium (Protonix Ec Tab) 40 mg PO DAILY [facility] Last Admin: 06/29/16 09:30 Dose: 40 mg Spironolactone (Aldactone) 25 mg PO BID [facility] Last Admin: 06/30/16 10:12 Dose: 25 mg Theophylline (Uniphyl) 600 mg PO DAILY [facility] Last Admin: 06/29/16 09:30 Dose: 600 mg Verapamil HCl (Calan Tab) 40 mg PO Q6 [facility] Last Admin: 06/30/16 10:12 Dose: 40 mg Zolpidem Tartrate (Ambien) 5 mg PO HS PRN PRN Reason: Sleep Last Admin: 06/28/16 20:45 Dose: 5 mg - Labs Labs: 06/30/16 04:10 06/30/16 04:10 PT 11.0 SECONDS (9.6-11.2) 06/09/16 04:10 INR 1.06 (0.92-1.08) 06/09/16 04:10 APTT 27.5 SECONDS (23.3-32.5) 06/03/16 22:33 Assessment and Plan (1) Acute bronchitis with chronic obstructive pulmonary disease (COPD) Status: Acute (2) Hyperthyroidism Status: Chronic (3) Abscess Status: Acute
[2016-06-30] MEDS ORDERED: Iohexol 300 100 ML IJ ONE (11:49)
[2016-06-30] MEDS ORDERED: Sodium Chloride 0.9% 50 ML IV ONE (11:49)
--- NOTE | 2016-06-30 13:02 | CT ---
PROCEDURE: CT Abdomen and Pelvis with contrast HISTORY: eval for adrenal mass COMPARISON: None. TECHNIQUE: Contrast dose: 90 mL Omnipaque 300 Radiation dose: Total exam DLP = 790.20 mGy-cm. FINDINGS: LOWER THORAX: Small bilateral pleural effusion. Minimal compressive lower lobe atelectasis bilaterally. Centrilobular pulmonary emphysema. LIVER: Normal size and contour. Low-attenuation mass in posterior right hepatic lobe, 2.9 x 3.6 Cm, slightly increased in size from examination of 10/01/2015. Please correlate with ultrasound examination. No other mass. No intrahepatic biliary ductal dilatation. GALLBLADDER AND BILE DUCTS: Status post cholecystectomy. Mild dilatation of common bile duct up to 10 mm, consistent prior cholecystectomy. PANCREAS: No pancreatic mass. Mild dilatation of the pancreatic duct in the body and head of the pancreas, nonspecific. This measures up to 5 mm in the pancreatic head. Of note is possible variant anatomy, possibly pancreas divisum. No pancreatic mass or peripancreatic fluid. SPLEEN: Unremarkable. ADRENALS: No adrenal mass. KIDNEYS AND URETERS: Unremarkable. No hydronephrosis. No solid mass. VASCULATURE: Unremarkable. No aortic aneurysm. BOWEL: Unremarkable. No obstruction. No gross mural thickening. APPENDIX: Normal appendix. PERITONEUM: Trace fluid in cul-de-sac. LYMPH NODES: Unremarkable. No enlarged lymph nodes. BLADDER: Gutierrez catheter noted. Small amount of gas within bladder lumen consistent with catheterization. Mild thickening of bladder wall and enhancement suggests possible cystitis. Please correlate with urinalysis. REPRODUCTIVE: Unremarkable. BONES: Moderate lumbar dextroscoliosis. Severe multilevel degenerative disc disease. No fracture. OTHER FINDINGS: None. IMPRESSION: No adrenal mass identified. Small bilateral pleural effusion. Emphysematous change. Status post cholecystectomy. Mild dilatation of pancreatic duct with possible variant pancreatic anatomy (pancreas divisum). This is unchanged in appearance since 10/01/2015. Thickening of bladder wall with enhancement may reflect cystitis. The bladder is suboptimally distended. Please correlate with urinalysis. Lumbar dextroscoliosis with severe multilevel degenerative disc disease. Slight interval enlargement of low-density circumscribed mass in right hepatic lobe. Correlate with ultrasound examination.
--- NOTE | 2016-06-30 13:07 | CP.CCUPN ---
CCU Subjective - Physician Review Subjective (Free Text): MED DIR PROGRESS NOTE Patient examined, interim events reviewed: Borderline hypotension noted this AM, otherwise asymptomatic. Appears calm now , less frustrated and agitated as compared to yesterday. Denies fevers, chills, chest pain, dizziness, palpitations, sweats, nausea, or abdominal discomfort. VS: Afebrile, 140/60, HR 105 sinus, RR 22-20, 93-94% on 30% / 30LPM HFNC. 24H I/Os= neg 5.7L ROS: as above, no other pertinent negs or positives on 10 system review. PMFSH: all nursing and historical notes reviewed, no new pertinent data relevant to current problems. No other distress noted: EXAM- HEENT: no icterus, pupils equal and reactive, prominent induration R cheek NECK: no visible JVD, supple, carotids equal upstroke bilat/no bruits CHEST: decreased BS bases, no wheezes audible. R upper chest PICC. Left mastectomy HEART: regular, distant, S1S2, no murmur audible, no rubs. ABD: soft, no increased distention, no focal tenderness, no HSM. BS hypoactive , EXT: +++ edema, RUE chronically edematous with lymphedema, no peripheral/ digital cyanosis, no calf tenderness or palpable cords, distal pulses intact and symmetrical NEURO: oriented x 3; no gross focal motor deficits SKIN: no rashes LABS: WBC= 16.3 HGB= 11.2 PLTs= 266K Na= 142 K= 4.2 HCO3= 36 BUN/Cr= 13/0.4 BS= 113 Assessment: 1. Acute hypercapneic hypoxemic Resp Failure, 2 Bronchitis and poor mobilization of secretions; on HFNC, h/o COPD with Emphysematous lung disease. 2. R Mandible Osteomyelitis 3. Severe hypokalemia 4. Anasarca / Severe hypoalbuminema 5. h/o Hyperthyroidism, and now Hypothyroid. 6. h/o metastatic breast CA PLAN: 1. Discussed with Nephro: decrease Aldactone to once daily for now. 2. Stop Verapamil for now. 3. F/u CTAP results, ordered to search for ?? adrenal masses. 4. Oral Surg f/u. 5. Tenous resp status remains, on HFNC at 25% oxygen with 25 LPM flow. No rapid shallow breathing noted nor any significant use of accessory mm. MV support remains on standby reserve.
--- NOTE | 2016-06-30 13:20 | CP.PCM.PN ---
Subjective - Date & Time of Evaluation Date of Evaluation: 06/30/16 Time of Evaluation: 13:19 - Subjective Subjective: pt seen and examined, follow up consult is dictated #[id number] d/w dr .dr. Turcios Objective - Vital Signs/Intake and Output Vital Signs (last 24 hours): Temp Pulse Resp BP Pulse Ox 98 F 111 H 20 120/85 96 06/30/16 07:59 06/30/16 10:12 06/30/16 11:40 06/30/16 10:12 06/30/16 07:59 Intake and Output: 06/30/16 06/30/16 06:59 18:59 Intake Total 1280 Output Total 600 Balance 680 - Medications Medications: Current Medications Acetaminophen (Tylenol 325mg Tab) 650 mg PO Q6 PRN PRN Reason: Pain, moderate (4-7) Last Admin: 06/28/16 01:46 Dose: 650 mg Acetylcysteine (Mucomyst 10% 4ml) 2 ml IH RBID [facility] Last Admin: 06/30/16 07:41 Dose: 2 ml Albuterol Sulfate (Albuterol 0.083% Inhal Ayb (2.5 Mg/3 Ml) Ud) 2.5 mg INH RQ4 PRN PRN Reason: Shortness of Breath Last Admin: 06/29/16 01:09 Dose: 2.5 mg Albuterol/Ipratropium (Duoneb 3 Mg/0.5 Mg (3 Ml) Ud) 3 ml INH RQID ANDREAS Last Admin: 06/30/16 11:39 Dose: 3 ml Alprazolam (Xanax) 0.25 mg PO Q12 PRN PRN Reason: Anxiety Stop: 07/01/16 15:23 Last Admin: 06/29/16 23:03 Dose: 0.25 mg Anastrozole (Arimidex 1 Mg Tab) 1 mg PO DAILY [facility] Last Admin: 06/29/16 09:23 Dose: 1 mg Aspirin (Ecotrin) 81 mg PO DAILY [facility] Last Admin: 06/29/16 09:26 Dose: 81 mg Baclofen (Lioresal) 10 mg PO HS [facility] Last Admin: 06/29/16 21:41 Dose: 10 mg Enoxaparin Sodium (Lovenox) 40 mg SC DAILY ANDRE[facility] PRN Reason: Protocol Last Admin: 06/30/16 10:09 Dose: 40 mg Gabapentin (Neurontin) 600 mg PO Q8H [facility] Last Admin: 06/30/16 05:45 Dose: 600 mg Guaifenesin (Mucinex La) 600 mg PO Q12 [facility] Last Admin: 06/29/16 21:40 Dose: 600 mg Meropenem 1 gm/ Sodium (Chloride) 100 mls @ 100 mls/hr IVPB Q12@0800,2000 [facility] Last Admin: 06/29/16 20:00 Dose: 100 mls/hr Piperacillin Sod/Tazobactam (Sod 3.375 gm/ Sodium Chloride) 100 mls @ 100 mls/ hr IVPB Q8 [facility] Last Admin: 06/30/16 10:10 Dose: 100 mls/hr Linezolid (Zyvox 600mg/300ml D5w) 300 mls @ 300 mls/hr IVPB Q12 [facility] Last Admin: 06/30/16 10:11 Dose: 300 mls/hr Fluconazole (Diflucan Iv 200 Mg/100 Ml Ns) 100 mls @ 100 mls/hr IVPB DAILY [facility] Last Admin: 06/29/16 15:04 Dose: 100 mls/hr Hydrocortisone Sodium Succinate 100 mg/ Sodium Chloride 100 mls @ 100 mls/hr IV Q12H [facility] Last Admin: 06/30/16 10:10 Dose: 100 mls/hr Lactobacillus Acidophilus (Bacid Acidophilus) 1 cap PO BID [facility] Last Admin: 06/29/16 16:41 Dose: 1 cap Loperamide HCl (Imodium) 2 mg PO QID PRN PRN Reason: Loose stools Last Admin: 06/29/16 15:05 Dose: 2 mg Methimazole (Tapazole) 5 mg PO DAILY [facility] Multi-Ingredient Cream (Hydrocerin Cream) 1 applic TOP BID [facility] Last Admin: 06/29/16 09:26 Dose: 1 applic Multivitamins/Minerals (Therapeutic-M Tab) 1 tab PO DAILY [facility] Last Admin: 06/29/16 09:30 Dose: 1 tab Oxycodone/Acetaminophen (Percocet 5/325 Mg Tab) 1 tab PO Q4 PRN PRN Reason: Pain, moderate (4-7) Stop: 07/01/16 10:41 Last Admin: 06/29/16 23:01 Dose: 1 tab Pantoprazole Sodium (Protonix Ec Tab) 40 mg PO DAILY [facility] Last Admin: 06/29/16 09:30 Dose: 40 mg Spironolactone (Aldactone) 25 mg PO BID [facility] Last Admin: 06/30/16 10:12 Dose: 25 mg Theophylline (Uniphyl) 600 mg PO DAILY [facility] Last Admin: 06/29/16 09:30 Dose: 600 mg Verapamil HCl (Calan Tab) 40 mg PO Q6 [facility] Last Admin: 06/30/16 10:12 Dose: 40 mg Zolpidem Tartrate (Ambien) 5 mg PO HS PRN PRN Reason: Sleep Last Admin: 06/28/16 20:45 Dose: 5 mg - Labs Labs: 06/30/16 04:10 06/30/16 04:10 PT 11.0 SECONDS (9.6-11.2) 06/09/16 04:10 INR 1.06 (0.92-1.08) 06/09/16 04:10 APTT 27.5 SECONDS (23.3-32.5) 06/03/16 22:33
[2016-06-30] MEDS: Fluconazole IV 200mg/100 ml NS 100 ML IVPB SCH (15:42)
[2016-06-30] MEDS: Oxycodone/Acetaminophen 5/325 mg Tab PO PRN (16:09)
[2016-06-30] MEDS: THEOPHYLLINE 400 MG T24(UNIPHYL) PO SCH (16:15)
[2016-06-30] MEDS: guaiFENesin 600 mg ER Tab PO SCH ×2 (16:16→21:00)
[2016-06-30] MEDS: methIMAzole 5 MG TAB PO SCH (16:17)
[2016-06-30] MEDS: Multivitamin With Minerals Tab PO SCH (16:18)
[2016-06-30] MEDS: Pantoprazole 40 mg EC Tab PO SCH (16:18)
[2016-06-30] MEDS: Nitroglycerin 2% 1GM UD TOP SCH (22:42)
--- NOTE | 2016-06-30 23:32 | PN ---
DATE: 06/30/2016 LOCATION: The patient is located in ICU, room 434. REQUESTED BY: Dr. Margarito Rivero. REASON FOR RENAL CONSULTATION: Hypokalemia, metabolic alkalosis, rule out primary hyperaldosteronism. HISTORY OF PRESENT ILLNESS: The patient is a 66-year-old elderly female with a history of hypertension, hyperthyroidism , COPD, CHF, who was admitted with right side face swelling, abdominal pain, diarrhea, and found to h ave osteomyelitis of the mandible, on IV antibiotics, and renal consult was initially requested for s evere hypokalemia, metabolic alkalosis, and hypertension and for further management. The patient was not in distress. The patient was hypotensive this morning during rounds and also tachycardic. Mason es any chest pain, palpitation. Denies any nausea, vomiting. Denies any diarrhea. PHYSICAL EXAMINATION: VITAL SIGNS: This morning, blood pressure 76/64, pulse 111, respirations 24, temperature 98, saturat ion 96%, height 5 feet 2 inches and weight is 115 pounds. GENERAL: The patient is a 66-year-old elderly female, very fragile, slightly tachycardic and hyperte nsive, not in distress. HEENT: Pupils normal, reactive to light and accommodation. Conjunctivae pink. Sclerae anicteric. Tongue is moist. NECK: Trachea is midline. LUNGS: Symmetry on both sides. No crackles. CARDIOVASCULAR: [place] at the fifth intercostal space and midclavicular line. S1, S2 audible, tachyca rdic. ABDOMEN: Normal in appearance, soft, tympanic. No guarding, no rigidity. No hepatosplenomegaly. CENTRAL NERVOUS SYSTEM: The patient is alert, awake, oriented x 3. Sensory and motor system is with in normal limits. EXTREMITIES: No cyanosis, no clubbing. The patient has 1-2+ edema in both lower extremities. CURRENT MEDICATIONS: Include as follows: Albuterol inhaler q. 4 hours, Aldactone 25 mg p.o. b.i.d., Ambien 5 mg at bedtim e, Arimidex 1 mg p.o. daily, Bacid 1 capsule p.o. b.i.d., Coreg 3.125 mg q. 12 hours, Diflucan 200 mg daily, DuoNeb inhaler q.i.d., Ecotrin 81 mg daily, Hydrocerin cream topical b.i.d., hydrocortisone 1 00 mg q. 12 hours, loperamide 2 mg p.o. q.i.d., baclofen 10 mg p.o. at bedtime, Lovenox 40 mg subQ da fernanda, meropenem 1 gram q. 12 hours, morphine 2 mg IV q. 4 hours p.r.n., Mucinex inhaler, Neurontin, Ni tro-Bid ointment, Tylenol with codeine 1 tablet q. 4 hours, Zosyn 3.375 grams q. 8 hours, Protonix, T apazole, multivitamins, theophylline, Xanax, and Zyvox 600 mg q. 12 hours. LABORATORY DATA: Include as follows: As of 06/30/2016, WBC 16.3, hemoglobin 11.2, hematocrit is 36.5, platelets 266. Sodium 142, potassium 4.2, chloride 103, CO2 36, BUN 13, creatinine 0.4, glucose 113, calcium 8.4, and TSH is 0.03, theophylline is 15.3. C. diff toxin is negative. As of 06/05/2016, serum cortisol level is 12.8 and still serum renin-aldosterone level is pending. CT of the abdomen and pelvis as of 06/29/2016, small bilateral pleural effusion, minimal compressive lower lobe atelectasis bilaterally, centrilobular pulmonary emphysema, liver normal size, contour, lo w attenuation mass in the posterior right hepatic lobe, 2.9 x 3.6 cm, slightly increase in size from examination of 10/01/2015. No adrenal mass, kidneys and ureter unremarkable. No hydronephrosis, no solid mass. Impression: No adrenal mass identified. Small bilateral pleural effusion and emphysema tous change, status post cholecystectomy, mild dilatation of the pancreatic duct with possible varian t pancreatic anatomy, this is unchanged since 10/01/2015, thickening of the bladder wall with enhance ment may reflect cystitis, bladder is suboptimally distended, lumbar dextroscoliosis with severe mult ilevel degenerative disk disease, slight interval enlargement of the low density circumscribed mass i n the right hepatic lobe correlate with ultrasound examination. SUMMARY: The patient is a 66-year-old elderly female with a history of hypertension, hyperthyroidism, chronic obstructive pulmonary disease, congestive heart failure, breast cancer status post surgery and radiat ion and chemotherapy with right shoulder surgery, and humerus resection, who was admitted with right- sided swelling of the face and also patient is being treated for osteomyelitis of the mandible with l ow potassium and also metabolic alkalosis and hypertension. 1. Hypokalemia. 2. Metabolic alkalosis. 3. Hypertension, rule out primary hyperaldosteronism. 4. Osteomyelitis of the mandible. 5. Continue Aldactone for now and hold for systolic blood pressure less than 120 and also for hyperka lemia. Continue IV antibiotics as per ID recommendations. Follow up serum renin-aldosterone level. We will follow with you. Thank you for allowing me to participate in your patient's care. Case discussed with mastic sprayer, Dr Be Turcios, in rounds. Randall Lerma MD cc: [id number] TT: 06/30/2016 23:31:25 Confirmation # [id number] Dictation # [id number]
[2016-07-01] MEDS: Albuterol 0.083% Inhal Sol (2.5 mg/3 mL) UD INH PRN ×2 (00:14→07:45)
[2016-07-01] MEDS: Piperacillin/Tazobact 3.375 GM in Sodium Chloride 0.9% 100 ML IVPB SCH ×3 (01:03→16:54)
--- NOTE | 2016-07-01 03:53 | PN ---
DATE: 07/01/2016 ROOM: 434 SUBJECTIVE: This is a 66-year-old female with overt hyperthyroidism after an initial presentation of hypothyroidism and has now been restarted back on Tapazole given as 5 mg once daily as ordered. Her latest thyroid study showed a TSH of 0.03 with a total T4 of 6.15 and free T4 of 0.92. Her latest c hemistry showed a BUN of 14, sodium 141, potassium 3.2, chloride 101, CO2 of 35, glucose 151, and cre atinine 0.6. So, at this time, we will do serial thyroid studies and titrate her Tapazole dose accordingly to opti stacy metabolic control. She is extremely labile metabolically in terms of her extremes of fluctuatio ns from hypo- to hyperthyroidism as noted thereof. We will follow. Polly Vu MD cc: [id number] TT: 07/01/2016 03:53:20 Confirmation # [id number] Dictation # [id number] hn
[2016-07-01] MEDS: Nitroglycerin 2% 1GM UD TOP SCH ×3 (04:30→21:24)
[2016-07-01 06:47] LABS: BASO % 0.2 % (0.0-2.0); HEMATOCRIT 37.5 % (34.0-47.0); LYMPH # 0.5 K/uL (1.0-4.3); LYMPH % 4.5 % (20.0-40.0); MEAN CELL VOLUME 83.2 fl (81.0-99.0); MEAN CORPUSCULAR HEMOGLOBIN 25.4 pg (27.0-31.0); MEAN CORPUSCULAR HGB CONC 30.5 g/dL (33.0-37.0); MEAN PLATELET VOLUME 7.3 fl (7.2-11.7); MONO # 0.5 K/uL (0.0-0.8); MONO % 5.1 % (0.0-10.0); NEUT # 9.2 K/uL (1.8-7.0); NEUT % 90.2 % (50.0-75.0); NRBC % 0.1 % (0.0-0.0); PLATELET COUNT 257 K/uL (130-400); RED CELL DISTRIBUTION WIDTH 32.8 % (11.5-14.5); WHITE BLOOD COUNT 10.2 K/uL (4.8-10.8)
[2016-07-01 06:57] LABS: ALB/GLOB RATIO 1.1 (1.0-2.1); ALKALINE PHOSPHATASE 92 U/L (38-126); ALT/SGPT 51 U/L (9-52); AST/SGOT 29 U/L (14-36); BILIRUBIN,TOTAL 0.4 mg/dl (0.2-1.3); BLOOD UREA NITROGEN 12 mg/dl (7-17); CALCIUM 8.3 mg/dL (8.4-10.2); CARBON DIOXIDE 34 mmol/L (22-30); CHLORIDE 98 mmol/L (98-107); GFR AFRICAN-AMERICAN > 60; GLUCOSE,RANDOM 122 mg/dL (65-105); SODIUM 142 mmol/l (132-148); TOTAL PROTEIN 4.8 G/DL (6.3-8.2)
[2016-07-01 07:05] LABS: POTASSIUM 2.4 MMOL/L (3.6-5.0)
[2016-07-01] MEDS: Acetylcysteine 10% 4 ML IH SCH ×2 (07:44→19:58)
[2016-07-01] MEDS: Albuterol-Ipratrop 3 mg / 0.5 (3 ml) UD INH SCH ×4 (07:45→19:58)
--- NOTE | 2016-07-01 08:06 | CP.PCM.CON ---
History of Present Illness - History of Present Illness History of Present Illness: Full Note Dictated Atypical chest pain H/O Non obstructed Coronary arteries on Cor Angio (Jun 2015) COPD Ca Breast EKG during chest discomfort : No ST T Changes of ischemia Troponin requested Past Patient History - Infectious Disease Hx of Infectious Diseases: MRSA - Tetanus Immunizations Tetanus Immunization: Unknown - Past Medical History & Family History Past Medical History?: Yes - Past Social History Smoking Status: Current Some Days Smoker Chewing Tobacco Use: No Cigar Use: No Alcohol: Social Drugs: Denies - CARDIAC Hx Cardiac Disorders: Yes Hx Hypertension: Yes - PULMONARY Hx Respiratory Disorders: Yes Hx Asthma: Yes Hx Chronic Obstructive Pulmonary Disease (COPD): Yes Hx Pneumonia: Yes - NEUROLOGICAL Hx Neurological Disorder: Yes Other/Comment: peripheral neuropathy right lower extremity. - HEENT Hx HEENT Problems: Yes Other/Comment: recent right buccal abscess with possible involvement of the mandible - RENAL Hx Chronic Kidney Disease: No - ENDOCRINE/METABOLIC Hx Endocrine Disorders: Yes Hx Hyperthyroidism: Yes (on methimazole) - HEMATOLOGICAL/ONCOLOGICAL Hx Blood Disorders: Yes Hx Bruising: Yes Hx Human Immunodeficiency Virus (HIV): No - INTEGUMENTARY Hx Dermatological Problems: No - MUSCULOSKELETAL/RHEUMATOLOGICAL Hx Musculoskeletal Disorders: Yes (Multiple fractures) Hx Falls: Yes Hx Osteoporosis: Yes - GASTROINTESTINAL Hx Gastrointestinal Disorders: Yes Hx Gall Bladder Disease: Yes - GENITOURINARY/GYNECOLOGICAL Hx Genitourinary Disorders: No - PSYCHIATRIC Hx Psychophysiologic Disorder: No Hx Substance Use: No - SURGICAL HISTORY Hx Surgeries: Yes Hx Mastectomy: Yes (right in 1998; left in 2008) Hx Orthopedic Surgery: Yes (2003 rigtht shoulder prosthesis, removal of hardware 2013) Hx Tubal Ligation: Yes Other/Comment: shoulder and humerous replacement with joint space infection and eventual removal of hardware in right shoulder and chronic lymphedema of RUE, groin cyst removal, cervical spinal fusion 2007, lumbar spinal fusion 2007. - ANESTHESIA Hx Anesthesia: Yes Hx Anesthesia Reactions: No Hx Malignant Hyperthermia: No Meds Allergies/Adverse Reactions: Allergies Allergy/AdvReac Type Severity Reaction Status Date / Time paper tape Allergy RASH Uncoded 06/03/16 21:31 - Medications Medications: Current Medications Acetaminophen (Tylenol 325mg Tab) 650 mg PO Q6 PRN PRN Reason: Pain, moderate (4-7) Last Admin: 06/28/16 01:46 Dose: 650 mg Acetylcysteine (Mucomyst 10% 4ml) 2 ml IH RBID [facility] Last Admin: 07/01/16 07:44 Dose: 2 ml Albuterol Sulfate (Albuterol 0.083% Inhal Aby (2.5 Mg/3 Ml) Ud) 2.5 mg INH RQ4 PRN PRN Reason: Shortness of Breath Last Admin: 07/01/16 07:45 Dose: 2.5 mg Albuterol/Ipratropium (Duoneb 3 Mg/0.5 Mg (3 Ml) Ud) 3 ml INH RQID [facility] Last Admin: 06/30/16 19:33 Dose: 3 ml Alprazolam (Xanax) 0.25 mg PO Q12 PRN PRN Reason: Anxiety Stop: 07/01/16 15:23 Last Admin: 06/30/16 14:35 Dose: 0.25 mg Anastrozole (Arimidex 1 Mg Tab) 1 mg PO DAILY [facility] Last Admin: 06/30/16 16:14 Dose: 1 mg Aspirin (Ecotrin) 81 mg PO DAILY [facility] Last Admin: 06/30/16 17:30 Dose: 81 mg Baclofen (Lioresal) 10 mg PO HS [facility] Last Admin: 06/30/16 21:34 Dose: 10 mg Carvedilol (Coreg) 3.125 mg PO Q12 [facility] Last Admin: 06/30/16 20:28 Dose: 3.125 mg Enoxaparin Sodium (Lovenox) 40 mg SC DAILY [facility] PRN Reason: Protocol Last Admin: 06/30/16 10:09 Dose: 40 mg Gabapentin (Neurontin) 600 mg PO Q8H [facility] Last Admin: 07/01/16 06:49 Dose: 600 mg Guaifenesin (Mucinex La) 600 mg PO Q12 [facility] Last Admin: 06/30/16 21:00 Dose: 600 mg Meropenem 1 gm/ Sodium (Chloride) 100 mls @ 100 mls/hr IVPB Q12@0800,2000 [facility] Last Admin: 06/30/16 20:00 Dose: 100 mls/hr Piperacillin Sod/Tazobactam (Sod 3.375 gm/ Sodium Chloride) 100 mls @ 100 mls/ hr IVPB Q8 [facility] Last Admin: 07/01/16 01:03 Dose: 100 mls/hr Linezolid (Zyvox 600mg/300ml D5w) 300 mls @ 300 mls/hr IVPB Q12 [facility] Last Admin: 06/30/16 20:12 Dose: 300 mls/hr Fluconazole (Diflucan Iv 200 Mg/100 Ml Ns) 100 mls @ 100 mls/hr IVPB DAILY [facility] Last Admin: 06/30/16 15:42 Dose: 100 mls/hr Hydrocortisone Sodium Succinate 100 mg/ Sodium Chloride 100 mls @ 100 mls/hr IV Q12H [facility] Last Admin: 06/30/16 20:00 Dose: 100 mls/hr Lactobacillus Acidophilus (Bacid Acidophilus) 1 cap PO BID [facility] Last Admin: 06/30/16 19:23 Dose: Not Given Loperamide HCl (Imodium) 2 mg PO QID PRN PRN Reason: Loose stools Last Admin: 06/30/16 20:20 Dose: 2 mg Methimazole (Tapazole) 5 mg PO DAILY [facility] Last Admin: 06/30/16 16:17 Dose: 5 mg Morphine Sulfate (Morphine) 2 mg IVP Q4 PRN PRN Reason: Pain, Mild (1-3) Multi-Ingredient Cream (Hydrocerin Cream) 1 applic TOP BID [facility] Last Admin: 06/30/16 17:30 Dose: 1 applic Multivitamins/Minerals (Therapeutic-M Tab) 1 tab PO DAILY [facility] Last Admin: 06/30/16 16:18 Dose: 1 tab Nitroglycerin (Nitro-Bid 2% Oint) 1 in TOP Q6 [facility] Last Admin: 07/01/16 04:30 Dose: 1 in Oxycodone/Acetaminophen (Percocet 5/325 Mg Tab) 1 tab PO Q4 PRN PRN Reason: Pain, moderate (4-7) Stop: 07/01/16 10:41 Last Admin: 06/30/16 16:09 Dose: 1 tab Pantoprazole Sodium (Protonix Ec Tab) 40 mg PO DAILY [facility] Last Admin: 06/30/16 16:18 Dose: 40 mg Spironolactone (Aldactone) 25 mg PO DAILY [facility] Theophylline (Uniphyl) 600 mg PO DAILY [facility] Last Admin: 06/30/16 16:15 Dose: 600 mg Zolpidem Tartrate (Ambien) 5 mg PO HS PRN PRN Reason: Sleep Last Admin: 06/28/16 20:45 Dose: 5 mg Results - Vital Signs Recent Vital Signs: Last Vital Signs Temp 97.8 F 07/01/16 04:00 Pulse 89 07/01/16 06:00 Resp 12 07/01/16 06:00 BP 131/69 07/01/16 06:00 Pulse Ox 96 07/01/16 06:00 - Labs Result Diagrams: 07/01/16 06:05 07/01/16 06:05 Labs: Laboratory Results - last 24 hr 06/30/16 07/01/16 12:45 06:05 WBC 10.2 RBC 4.51 Hgb 11.4 L Hct 37.5 MCV 83.2 MCH 25.4 L MCHC 30.5 L RDW 32.8 H Plt Count 257 MPV 7.3 Neut % (Auto) 90.2 H Lymph % (Auto) 4.5 L [place] % (Auto) 5.1 Eos % (Auto) 0.0 Baso % (Auto) 0.2 Neut # 9.2 H Lymph # 0.5 L [place] # 0.5 Eos # 0.0 Baso # 0.0 Sodium 142 Potassium 2.4 L* D Chloride 98 Carbon Dioxide 34 H Anion Gap 12 BUN 12 Creatinine 0.4 L Est GFR ( Amer) > 60 Est GFR (Non-Af Amer) > 60 Random Glucose 122 H Calcium 8.3 L Total Bilirubin 0.4 AST 29 ALT 51 Alkaline Phosphatase 92 Total Protein 4.8 L Albumin 2.6 L Globulin 2.3 Albumin/Globulin Ratio 1.1 C. difficile Ag & Toxin Negative
--- NOTE | 2016-07-01 08:57 | CARD ---
APPROVED REPORT EKG Measurement Heart [id number] <Conclusion> Poor data quality, interpretation may be adversely affected Sinus tachycardia with premature supraventricular complexes Possible Left atrial enlargement Cannot rule out Anterior infarct, age undetermined-not diagnostic Abnormal ECG
[2016-07-01] MEDS ORDERED: THEOPHYLLINE 400 MG T24(UNIPHYL) PO SCH (09:00)
[2016-07-01] MEDS: guaiFENesin 600 mg ER Tab PO SCH ×2 (09:04→21:19)
[2016-07-01] MEDS: Lactobacillus Acidophilus 500 MU Cap PO SCH ×2 (09:04→17:51)
[2016-07-01] MEDS: Multivitamin With Minerals Tab PO SCH (09:05)
[2016-07-01] MEDS: Pantoprazole 40 mg EC Tab PO SCH (09:05)
[2016-07-01] MEDS: methIMAzole 5 MG TAB PO SCH (09:06)
[2016-07-01] MEDS: Fluconazole IV 200mg/100 ml NS 100 ML IVPB SCH (09:08)
[2016-07-01] MEDS: Meropenem 1 GM in Sodium Chloride 0.9% 100 ML IVPB SCH ×2 (09:09→21:20)
[2016-07-01] MEDS: Enoxaparin 40 mg Syringe SC SCH (09:09)
[2016-07-01] MEDS: Hydrocortisone- 100 MG in Sodium Chloride 0.9% 100 ML IV SCH ×2 (09:10→20:15)
[2016-07-01] MEDS: Linezolid 600 mg in D5W 300 ml 300 ML IVPB SCH ×2 (09:11→21:21)
--- NOTE | 2016-07-01 09:11 | CP.PCM.PN ---
Subjective - Date & Time of Evaluation Date of Evaluation: 07/01/16 Time of Evaluation: 09:00 - Subjective Subjective: Interim events reviewed. Case discussed with skill labor and cardiology. Patient seen in the ICU receiving aerosol therapy because of increased SOB this morning. Has developed increased SOB with desaturation this AM. Previous cardiac cath reviewed by cardiology and no significant coronary stenosis seen last year. Had been placed on carvedilol and has been receiving ASA and nitrates. These will be discontinued. Leukocytosis has decreased this AM. Remains afebrile. BP controlled, mildly tachycardic. On methimazole for her hyperthyroid state. Hypokalemia is pronounced. Cough is still congested and non-productive. Neck is supple w/o JVD or adenopathy. Trachea remains midline. Breath sounds are diminished with faint E wheezing L>R. Coarse rhonchi heard with coughing. SpO2 up to 92%. No CXR this morning. Stop theophylline and consider PDE4 inhibitor. D/C ASA, carvedilol and monitor BP/HR. Continue present antibiotic therapy. Stop nitrates. Objective - Vital Signs/Intake and Output Vital Signs (last 24 hours): Temp Pulse Resp BP Pulse Ox 98.2 F 108 H 22 128/81 90 L 07/01/16 08:00 07/01/16 08:00 07/01/16 08:00 07/01/16 08:00 07/01/16 08:00 Intake and Output: 06/30/16 07/01/16 23:59 11:59 Intake Total 2570 680 Output Total 1400 1500 Balance 1170 -820 - Medications Medications: Current Medications Acetaminophen (Tylenol 325mg Tab) 650 mg PO Q6 PRN PRN Reason: Pain, moderate (4-7) Last Admin: 06/28/16 01:46 Dose: 650 mg Acetylcysteine (Mucomyst 10% 4ml) 2 ml IH RBID [facility]REAS Last Admin: 07/01/16 07:44 Dose: 2 ml Albuterol Sulfate (Albuterol 0.083% Inhal Aby (2.5 Mg/3 Ml) Ud) 2.5 mg INH RQ4 PRN PRN Reason: Shortness of Breath Last Admin: 07/01/16 07:45 Dose: 2.5 mg Albuterol/Ipratropium (Duoneb 3 Mg/0.5 Mg (3 Ml) Ud) 3 ml INH RQID [facility] Last Admin: 06/30/16 19:33 Dose: 3 ml Alprazolam (Xanax) 0.25 mg PO Q12 PRN PRN Reason: Anxiety Stop: 07/01/16 15:23 Last Admin: 06/30/16 14:35 Dose: 0.25 mg Anastrozole (Arimidex 1 Mg Tab) 1 mg PO DAILY [facility] Last Admin: 06/30/16 16:14 Dose: 1 mg Baclofen (Lioresal) 10 mg PO HS [facility] Last Admin: 06/30/16 21:34 Dose: 10 mg Enoxaparin Sodium (Lovenox) 40 mg SC DAILY [facility] PRN Reason: Protocol Last Admin: 06/30/16 10:09 Dose: 40 mg Gabapentin (Neurontin) 600 mg PO Q8H [facility] Last Admin: 07/01/16 06:49 Dose: 600 mg Guaifenesin (Mucinex La) 600 mg PO Q12 [facility] Last Admin: 06/30/16 21:00 Dose: 600 mg Meropenem 1 gm/ Sodium (Chloride) 100 mls @ 100 mls/hr IVPB Q12@0800,2000 [facility] Last Admin: 06/30/16 20:00 Dose: 100 mls/hr Piperacillin Sod/Tazobactam (Sod 3.375 gm/ Sodium Chloride) 100 mls @ 100 mls/ hr IVPB Q8 [facility] Last Admin: 07/01/16 01:03 Dose: 100 mls/hr Linezolid (Zyvox 600mg/300ml D5w) 300 mls @ 300 mls/hr IVPB Q12 [facility] Last Admin: 06/30/16 20:12 Dose: 300 mls/hr Fluconazole (Diflucan Iv 200 Mg/100 Ml Ns) 100 mls @ 100 mls/hr IVPB DAILY [facility] Last Admin: 06/30/16 15:42 Dose: 100 mls/hr Hydrocortisone Sodium Succinate 100 mg/ Sodium Chloride 100 mls @ 100 mls/hr IV Q12H [facility] Last Admin: 06/30/16 20:00 Dose: 100 mls/hr Lactobacillus Acidophilus (Bacid Acidophilus) 1 cap PO BID [facility] Last Admin: 06/30/16 19:23 Dose: Not Given Loperamide HCl (Imodium) 2 mg PO QID PRN PRN Reason: Loose stools Last Admin: 06/30/16 20:20 Dose: 2 mg Methimazole (Tapazole) 5 mg PO DAILY [facility] Last Admin: 06/30/16 16:17 Dose: 5 mg Morphine Sulfate (Morphine) 2 mg IVP Q4 PRN PRN Reason: Pain, Mild (1-3) Multi-Ingredient Cream (Hydrocerin Cream) 1 applic TOP BID [facility] Last Admin: 06/30/16 17:30 Dose: 1 applic Multivitamins/Minerals (Therapeutic-M Tab) 1 tab PO DAILY [facility] Last Admin: 06/30/16 16:18 Dose: 1 tab Oxycodone/Acetaminophen (Percocet 5/325 Mg Tab) 1 tab PO Q4 PRN PRN Reason: Pain, moderate (4-7) Stop: 07/01/16 10:41 Last Admin: 06/30/16 16:09 Dose: 1 tab Pantoprazole Sodium (Protonix Ec Tab) 40 mg PO DAILY [facility] Last Admin: 06/30/16 16:18 Dose: 40 mg Potassium Chloride (Potassium Chloride Oral Soln) 20 meq PO BID ONE Stop: 07/01/16 08:57 Roflumilast (Daliresp) 500 mcg PO DAILY [facility] Spironolactone (Aldactone) 25 mg PO DAILY [facility] Zolpidem Tartrate (Ambien) 5 mg PO HS PRN PRN Reason: Sleep Last Admin: 06/28/16 20:45 Dose: 5 mg - Labs Labs: 07/01/16 06:05 07/01/16 06:05 PT 11.0 SECONDS (9.6-11.2) 06/09/16 04:10 INR 1.06 (0.92-1.08) 06/09/16 04:10 APTT 27.5 SECONDS (23.3-32.5) 06/03/16 22:33 Assessment and Plan (1) Acute bronchitis with chronic obstructive pulmonary disease (COPD) Status: Acute (2) Hyperthyroidism Status: Chronic (3) Abscess Status: Acute
--- NOTE | 2016-07-01 09:34 | CARD ---
APPROVED REPORT EKG Measurement Heart [id number] CO [id number] [id number] <Conclusion> Sinus tachycardia with premature supraventricular complexes Nonspecific T wave abnormality Abnormal ECG
[2016-07-01] MEDS: Hydrocerin CREAM TOP SCH ×2 (09:35→16:49)
[2016-07-01] MEDS: Potassium Chloride 20 mEq/15 ml LIQ UD PO SCH ×3 (10:06→17:52)
[2016-07-01] MEDS: Potassium CL 10 MEQ/50 ML 50 ML IVPB SCH ×6 (10:07→19:27)
[2016-07-01 10:29] LABS: NEUTROPHIL 93 % (42-75); TOTAL CELLS COUNTED 100
--- NOTE | 2016-07-01 11:16 | CON ---
DATE: 07/01/2016 She is hospitalized under Dr. Benz's care in intensive care unit. HISTORY OF PRESENT ILLNESS: This is a 66-year-old female with history of breast malignancy and sever e chronic obstructive airway disease, has been hospitalized with a mandibular abscess which is being treated with intravenous antibiotics. Yesterday, she complained of chest discomfort and this consult ation was requested. The patient has had a coronary angiogram last year and subsequently was given n itroglycerin to take upon experiencing such a discomfort which has occurred at home also. According to her, nitroglycerin is not very effective. Review of the findings during coronary angiogram in Jun of last year did not reveal any obstructive coronary anatomy. PHYSICAL EXAMINATION: VITAL SIGNS: Shows an elderly female who is on oxygen supplement by mask, continues to be profoundly dyspneic with a pulse oximetry reading mostly on either side of 90%, mildly tachycardic with heart r ate of 94 beats per minute, regular, and a blood pressure of 120/70 mmHg. NECK: Her jugular venous pressure was not elevated. EXTREMITIES: There was pitting edema of both lower extremities. The right upper extremity was marke dly swollen because of lymphedema following breast surgery. The extremities were slightly cool to to uch. No central or peripheral cyanosis was evident. HEART: The apex was not palpable. The first and second heart sounds were normal. There was a brief apical systolic murmur, no gallop rhythm. LUNGS: The expiration was prolonged. There were no rales. LABORATORY DATA: Electrocardiogram showed sinus tachycardia with biatrial enlargement and the EKG ta nitin during the episode of chest pain did not show any ST-T abnormalities. EKG taken a month back at the time of admission did show evidence of a pattern of left ventricular hypertrophy ST-T abnor malities secondary to LVH. The rest of her labs were noted. Troponins were sent just now. IMPRESSION AND PLAN: At this time is atypical chest pain in a patient with a history of recent coron faith angiogram, which did not reveal any obstructive coronary anatomy, severe chronic obstructive pulm onary disease with ventilatory insufficiency and carcinoma of the breast. The patient is hemodynamic ally stable at this point. She is significantly hypokalemic and potassium is being replaced, but tro ponin has been sent. If the report comes back as indicating no myocardial injury, the patient will n ot have any further interventions. At this point, she is hemodynamically stable. Celio Luu MD cc: 23 TT: 07/01/2016 11:15:31 Confirmation # [id number] Dictation # [id number] rn
--- NOTE | 2016-07-01 12:28 | CP.CCUPN ---
CCU Subjective - Physician Review Subjective (Free Text): TRANSFORM[employer] PROGRESS NOTE Patient examined, interim events reviewed: Uneventful night, states felt much better after chest discomfort relieved by morphine. Underwent cardio eval, had negative coronary angio studies last year. She did have brief recurrent chest pressure discomfort this AM and given Morphine again for relief. Unusual intermittent desaturation noted to mid 80s but not associated with any change in clinical condition. Oximetry sensors and positioning changed to get best pleth signal and wave form. HFNC oxygen increased from 25% to 30%, flow remains at 25 LPM. Weak cough noted and unable to expectorate phlegm and mucous which she states is low near mid chest region. VS: Afebrile, 113/84, HR 105 sinus, RR 24, 96% on 30% / 30LPM HFNC. 12H I/Os = +350ml ROS: as above, no other pertinent negs or positives on 10 system review. PMFSH: all nursing and historical notes reviewed, no new pertinent data relevant to current problems. No other distress noted: EXAM- HEENT: no icterus, pupils equal and reactive, prominent induration R cheek NECK: no visible JVD, supple, carotids equal upstroke bilat/no bruits CHEST: decreased BS bases, no wheezes audible. R upper chest PICC. Left mastectomy HEART: regular, distant, S1S2, no murmur audible, no rubs. ABD: soft, no increased distention, no focal tenderness, no HSM. BS hypoactive , EXT: ++ edema, RUE chronically edematous with lymphedema, no peripheral/ digital cyanosis, no calf tenderness or palpable cords, distal pulses intact and symmetrical NEURO: oriented x 3; no gross focal motor deficits SKIN: no rashes LABS: WBC= 10.2 HGB= 11.4 PLTs= 257K Na= 142 K= 2.4 HCO3= 34 BUN/Cr= 12/0.4 BS= 122 Trop negative. Assessment: 1. Acute hypercapneic hypoxemic Resp Failure, 2 Bronchitis and poor mobilization of secretions; on HFNC, h/o COPD with Emphysematous lung disease. 2. R Mandible Osteomyelitis 3. Severe hypokalemia-recurrent 4. Anasarca / Severe hypoalbuminema 5. h/o Hyperthyroidism, and now Hypothyroid. 6. h/o metastatic breast CA PLAN: 1. Discussed with Nephro: decreased Aldactone to once daily for now. 2. Stopped Verapamil and started on Coreg, but both now stopped over concern for BBs causing hypokalemia. 3. F/u CTAP results: no adrenal masses. 4. Oral Surg f/u. 5. Tenous resp status remains, no rapid shallow breathing noted nor any significant use of accessory mm now, she remains full Code status and MV support if needed.
--- NOTE | 2016-07-01 14:13 | CP.PCM.PN ---
Subjective - Date & Time of Evaluation Date of Evaluation: 07/01/16 Time of Evaluation: 14:00 - Subjective Subjective: I have personally seen and examined patient bedside.Chronically ill female lying in bed on high flow O2 via NC tachycardic and with dyspnea . Complains of dyspnea at rest and especially with minimal effort, chest congestion without being able to expectorate. Still with right facial swelling tenderness but a little better. Tachycardic HR 112-117, afebrile , on high flow O2 via NC 25 LPM FIO2 25 % this Am and episode of low O2 Sat 80 % associated with chest pain. at present on FIO2 30 % and good oxygenation O2Sat 96 % BP 113/84 WBC 10 K Hgb 11 K 2.4 I?O 3250/2900 Objective - Vital Signs/Intake and Output Vital Signs (last 24 hours): Temp Pulse Resp BP Pulse Ox 98.3 F 117 H 18 113/84 98 07/01/16 12:00 07/01/16 12:00 07/01/16 12:00 07/01/16 12:00 07/01/16 12:00 Intake and Output: 07/01/16 07/01/16 06:59 18:59 Intake Total 1260 700 Output Total 1500 Balance -240 700 - Medications Medications: Current Medications Acetaminophen (Tylenol 325mg Tab) 650 mg PO Q6 PRN PRN Reason: Pain, moderate (4-7) Last Admin: 06/28/16 01:46 Dose: 650 mg Acetylcysteine (Mucomyst 10% 4ml) 2 ml IH RBID [facility]RE[facility] Last Admin: 07/01/16 07:44 Dose: 2 ml Albuterol Sulfate (Albuterol 0.083% Inhal Aby (2.5 Mg/3 Ml) Ud) 2.5 mg INH RQ4 PRN PRN Reason: Shortness of Breath Last Admin: 07/01/16 07:45 Dose: 2.5 mg Albuterol/Ipratropium (Duoneb 3 Mg/0.5 Mg (3 Ml) Ud) 3 ml INH RQID [facility] Last Admin: 07/01/16 11:31 Dose: 3 ml Alprazolam (Xanax) 0.25 mg PO Q12 PRN PRN Reason: Anxiety Stop: 07/01/16 15:23 Last Admin: 02/22/17 14:35 Dose: 0.25 mg Anastrozole (Arimidex 1 Mg Tab) 1 mg PO DAILY [facility] Last Admin: 07/01/16 09:07 Dose: 1 mg Baclofen (Lioresal) 10 mg PO HS [facility] Last Admin: 06/30/16 21:34 Dose: 10 mg Enoxaparin Sodium (Lovenox) 40 mg SC DAILY [facility] PRN Reason: Protocol Last Admin: 07/01/16 09:09 Dose: 40 mg Gabapentin (Neurontin) 600 mg PO Q8H [facility] Last Admin: 07/01/16 06:49 Dose: 600 mg Guaifenesin (Mucinex La) 600 mg PO Q12 [facility] Last Admin: 07/01/16 09:04 Dose: 600 mg Meropenem 1 gm/ Sodium (Chloride) 100 mls @ 100 mls/hr IVPB Q12@0800,2000 [facility] Last Admin: 07/01/16 09:09 Dose: 100 mls/hr Piperacillin Sod/Tazobactam (Sod 3.375 gm/ Sodium Chloride) 100 mls @ 100 mls/ hr IVPB Q8 [facility] Last Admin: 07/01/16 09:10 Dose: 100 mls/hr Linezolid (Zyvox 600mg/300ml D5w) 300 mls @ 300 mls/hr IVPB Q12 [facility] Last Admin: 07/01/16 09:11 Dose: 300 mls/hr Fluconazole (Diflucan Iv 200 Mg/100 Ml Ns) 100 mls @ 100 mls/hr IVPB DAILY [facility] Last Admin: 07/01/16 09:08 Dose: 100 mls/hr Hydrocortisone Sodium Succinate 100 mg/ Sodium Chloride 100 mls @ 100 mls/hr IV Q12H [facility] Last Admin: 07/01/16 09:10 Dose: 100 mls/hr Potassium Chloride (Potassium Cl 10meq/50ml Sterile Water) 50 mls @ 50 mls/hr IVPB Q1 [facility] Stop: 07/01/16 14:59 Last Admin: 07/01/16 12:21 Dose: 50 mls/hr Lactobacillus Acidophilus (Bacid Acidophilus) 1 cap PO BID [facility] Last Admin: 07/01/16 09:04 Dose: 1 cap Loperamide HCl (Imodium) 2 mg PO QID PRN PRN Reason: Loose stools Last Admin: 06/30/16 20:20 Dose: 2 mg Methimazole (Tapazole) 5 mg PO DAILY [facility] Last Admin: 07/01/16 09:06 Dose: 5 mg Morphine Sulfate (Morphine) 2 mg IVP Q4 PRN PRN Reason: Pain, Mild (1-3) Multi-Ingredient Cream (Hydrocerin Cream) 1 applic TOP BID [facility] Last Admin: 06/30/16 17:30 Dose: 1 applic Multivitamins/Minerals (Therapeutic-M Tab) 1 tab PO DAILY [facility] Last Admin: 07/01/16 09:05 Dose: 1 tab Pantoprazole Sodium (Protonix Ec Tab) 40 mg PO DAILY [facility] Last Admin: 07/01/16 09:05 Dose: 40 mg Potassium Chloride (Potassium Chloride Oral Soln) 20 meq PO BID [facility] Stop: 07/01/16 23:59 Last Admin: 07/01/16 10:06 Dose: 20 meq Roflumilast (Daliresp) 500 mcg PO DAILY [facility] Spironolactone (Aldactone) 25 mg PO DAILY [facility] Last Admin: 07/01/16 09:04 Dose: 25 mg Zolpidem Tartrate (Ambien) 5 mg PO HS PRN PRN Reason: Sleep Last Admin: 06/28/16 20:45 Dose: 5 mg - Labs Labs: 07/01/16 06:05 07/01/16 06:05 PT 11.0 SECONDS (9.6-11.2) 06/09/16 04:10 INR 1.06 (0.92-1.08) 06/09/16 04:10 APTT 27.5 SECONDS (23.3-32.5) 06/03/16 22:33 - Constitutional Appears: Chronically Ill - Head Exam Head Exam: NORMOCEPHALIC Additional comments: right supra mandibullar swelling extending form zygomatic bone to mandibula, soft and flactuating - Eye Exam Eye Exam: EOMI, Normal appearance Pupil Exam: NORMAL ACCOMODATION - ENT Exam ENT Exam: Mucous Membranes Moist, Normal Exam - Neck Exam Neck Exam: Normal Inspection - Respiratory Exam Respiratory Exam: Accessory Muscle Use, Prolonged Expiratory Phase, Rhonchi. absent: Wheezes, Stridor Additional comments: coarse breath sounds bilateral Bibasilar rales - Cardiovascular Exam Cardiovascular Exam: REGULAR RHYTHM, +S1, +S2. absent: JVD - GI/Abdominal Exam GI & Abdominal Exam: Soft, Normal Bowel Sounds. absent: Distended, Guarding, Tenderness, Rebound - Rectal Exam Rectal Exam: Deferred - Extremities Exam Extremities Exam: Pedal Edema (2+ bilateral LE edema,RUE lymphedema , weeping left hip wound ) Additional comments: pulses present - Neurological Exam Neurological Exam: Alert, Awake, CN II-XII Intact, Oriented x3 - Psychiatric Exam Psychiatric exam: Normal Affect - Skin Skin Exam: Abrasion (small abrasions to LE bilaterally ), Dry, Pallor, Warm Additional comments: multiple echymotic areas to upper chest , left upper extremity Assessment and Plan - Assessment and Plan (Free Text) Assessment: 66 y/o female PMH COPD, bilateral breast CA s/p chemo and radiation 8 years ago with bone mets to shoulder (s/p humeral resection), HTN, Hyperthyroidism presented with 2 week history of worsening bilateral lower extremity swelling and weakness, unable to get herself up to her walker. Patient has mild dyspnea at baseline. She also came with a large right facial swelling for almost 2 weeks and was taking PO antibiotics prescribed by her dentist. Patient was admitted for generalized weakness , Hyponatremia and Facial abscess. She was started on IV antibiotics for facial abscess and Lasix IV with fluid restriction for LE edema. Maxillofacial Ct showed possible abscess accumulation. Evaluated by Oromaxillofacial surgeon and underwent Incision and drainage of abscess. Bone scan showed possible osteomyelitis . ID recommends 4-6 wks IV abx treatment. During this hospitalization noted to have increased dyspnea at rest and more so with minimal activity, decreased air entry bilaterally and increased work of breathing. She was started on high flow O2, Higher doses of theophylline and IV hydrocortisone. CTA chest and LE doppler showed no DVT , except right cephallic cherelle thrombosis . She was transferred to ICU for close monitoring for tachypnea and tachycardia. At present, still on High Flow Oxygen 25 LMP FIO2 30 % with good oxygenation but still with episodes of respiratory distress and tachycardia. Complained of pressure like chest pain with low O2 sat 80 % this AM that relieved with morphine. Right Facial abscess is still present 1. Chest Pain r/o ACS with pressure like chest pain this AM and low O2 sat increased FIo2 from 25 to 30 % cardiology consult with Dr. Luu appreciated Trop -- negative and EKG showed no ST-T wave changes Most likely atypical chest pain related to anxiety and COPD. There is no signs of ischemia Continue 2. Acute on Chronic Respiratory Insufficiency with hypercapnea Most likely secondary to COPD exacerbation with acute bronchitis and CHF exacerbation With episode of low O2Sat this AM . Increased FIO2 from 25 to 30 % . Continue high flow O2 via NC 25 LMPM on FIO2 30 % CT chest showed no PE and improved bilateral pleural effusion after diuresis LE doppler showed no DVT decreased Aldactone to 25 mg QD bec of hypokalemia Continue Duonebs Continue Chest PT , Coughalator and Acapella therapy Dr. Benz following patient closely Discontinued ASA, coreg , Theophylline today Started daliresp Continue Hydrocortisone changed 100 mg IV Q12 Replace K accordingly ( 60 Meq toad 0 on very low dose Xanax 0.25 bid prn as this seem to help when pt gets very anxious, tachypenic and tachycardic 3. Facial abscess with mandibular Osteomyelitis s/p drainage of abscess Maxillofacial Ct showed :Large enhancing wall collection seen around the mid and upper right mandibular ramus and mandibular neck extending anteriorly and seen medial and lateral to the right zygomatic arch. This collection contains foci of air. The density and the appearance of this collection suggestive of abscess formation. The collection is seen anterior to the right parotid gland and extending medially to the posterior right oral cavity. [id number] right maxillary sinus mucosal thickening and small air-fluid level. Partial opacification of both mastoids suggestive of mastoiditis. ID on consult: Dr Obrien. Recommended IV abx 6 wks total ( # Day ) OMFS Dr. 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 Priest appreciated. He recommends maxillofacial evaluation for dental abscess , not parotitis. Dr Ambrose re consulted - will come this evening 4. Bilateral LE edema sec to CHF exacerbation with diastolic dysfxn still with LE edema bilateral 2 + diuresing well I/O 3250/2900 Echo showed EF 40-45 % and dilated RV continue fluid restriction Promote ambulation Continue Aldactone 25 mg QD 5.Hypokalemia multifactorial diuretic induced , Albuterol, Hypothyroidism Lasix changed to Aldactone Continue KCl runs and PO replacement K 2.4 today Nephro consul appreciated CT of abd showed no adrenal mass 6 .Hyponatremia, resolved most likely secondary to solute depletion and infection Continue fluid restriction 7.Hx breast ca, bilateral stable, s/p bilateral mastectomy continue arimidex 8. Tachycardia -- multifactorial Hx of HTN was on verapamil at home ( 80mg tid) but decresaed dose due to low BP and now discontinued as may contribute to leg edema started low dose Coreg but discontinued due to COPD continue monitoring 9. Hypothyroidism patient has history of hyperthyroidism and was on Methimazole but had developed hypothyroidism so Methimazole was d/c and she was started on Po levothyroxine- At present TSH 0.03 so Methimazole 5 mg po Qd restarted by endo d/c levothyroxine 10. Anemia, chronic dis monitor anemia work up showed depleted iron stores Venofer IV given s/p 2 units PRBC transfusion 11. Right cephalic vein thrombosis ( superficial vein) on lovenox 12.DVT ppx lovenox
[2016-07-01 14:33] LABS: ALDO/PRA RATIO 0.4 Ratio (0.9-28.9)
--- NOTE | 2016-07-01 18:12 | CP.PCM.PN ---
Subjective - Date & Time of Evaluation Date of Evaluation: 07/01/16 Time of Evaluation: 18:12 - Subjective Subjective: pt seen and examined, follow up consult is dictated #[id number] Objective - Vital Signs/Intake and Output Vital Signs (last 24 hours): Temp Pulse Resp BP Pulse Ox 98.5 F 119 H 22 128/92 H 97 07/01/16 16:00 07/01/16 16:00 07/01/16 16:40 07/01/16 16:00 07/01/16 16:00 Intake and Output: 07/01/16 07/01/16 06:59 18:59 Intake Total 1260 1000 Output Total 1500 Balance -240 1000 - Medications Medications: Current Medications Acetaminophen (Tylenol 325mg Tab) 650 mg PO Q6 PRN PRN Reason: Pain, moderate (4-7) Last Admin: 06/28/16 01:46 Dose: 650 mg Acetylcysteine (Mucomyst 10% 4ml) 2 ml IH RBID [facility] Last Admin: 07/01/16 07:44 Dose: 2 ml Albuterol Sulfate (Albuterol 0.083% Inhal Aby (2.5 Mg/3 Ml) Ud) 2.5 mg INH RQ4 PRN PRN Reason: Shortness of Breath Last Admin: 07/01/16 07:45 Dose: 2.5 mg Albuterol/Ipratropium (Duoneb 3 Mg/0.5 Mg (3 Ml) Ud) 3 ml INH RQID [facility] Last Admin: 07/01/16 16:07 Dose: 3 ml Anastrozole (Arimidex 1 Mg Tab) 1 mg PO DAILY [facility] Last Admin: 07/01/16 09:07 Dose: 1 mg Baclofen (Lioresal) 10 mg PO HS [facility] Last Admin: 06/30/16 21:34 Dose: 10 mg Enoxaparin Sodium (Lovenox) 40 mg SC DAILY [facility] PRN Reason: Protocol Last Admin: 07/01/16 09:09 Dose: 40 mg Gabapentin (Neurontin) 600 mg PO Q8H [facility] Last Admin: 07/01/16 14:00 Dose: Not Given Guaifenesin (Mucinex La) 600 mg PO Q12 [facility] Last Admin: 07/01/16 09:04 Dose: 600 mg Meropenem 1 gm/ Sodium (Chloride) 100 mls @ 100 mls/hr IVPB Q12@0800,2000 [facility] Last Admin: 07/01/16 09:09 Dose: 100 mls/hr Piperacillin Sod/Tazobactam (Sod 3.375 gm/ Sodium Chloride) 100 mls @ 100 mls/ hr IVPB Q8 [facility] Last Admin: 07/01/16 16:54 Dose: 100 mls/hr Linezolid (Zyvox 600mg/300ml D5w) 300 mls @ 300 mls/hr IVPB Q12 [facility] Last Admin: 07/01/16 09:11 Dose: 300 mls/hr Fluconazole (Diflucan Iv 200 Mg/100 Ml Ns) 100 mls @ 100 mls/hr IVPB DAILY [facility] Last Admin: 07/01/16 09:08 Dose: 100 mls/hr Hydrocortisone Sodium Succinate 100 mg/ Sodium Chloride 100 mls @ 100 mls/hr IV Q12H [facility] Last Admin: 07/01/16 09:10 Dose: 100 mls/hr Lactobacillus Acidophilus (Bacid Acidophilus) 1 cap PO BID [facility] Last Admin: 07/01/16 17:51 Dose: 1 cap Loperamide HCl (Imodium) 2 mg PO QID PRN PRN Reason: Loose stools Last Admin: 06/30/16 20:20 Dose: 2 mg Methimazole (Tapazole) 5 mg PO BID [facility] Morphine Sulfate (Morphine) 2 mg IVP Q4 PRN PRN Reason: Pain, moderate (4-7) Last Admin: 07/01/16 17:51 Dose: 2 mg Multi-Ingredient Cream (Hydrocerin Cream) 1 applic TOP BID [facility] Last Admin: 07/01/16 16:49 Dose: 1 applic Multivitamins/Minerals (Therapeutic-M Tab) 1 tab PO DAILY [facility] Last Admin: 07/01/16 09:05 Dose: 1 tab Pantoprazole Sodium (Protonix Ec Tab) 40 mg PO DAILY [facility] Last Admin: 07/01/16 09:05 Dose: 40 mg Potassium Chloride (Potassium Chloride Oral Soln) 20 meq PO BID [facility] Stop: 07/01/16 23:59 Last Admin: 07/01/16 17:52 Dose: 20 meq Roflumilast (Daliresp) 500 mcg PO DAILY [facility] Last Admin: 07/01/16 16:49 Dose: 500 mcg Spironolactone (Aldactone) 25 mg PO DAILY [facility] Last Admin: 07/01/16 09:04 Dose: 25 mg Zolpidem Tartrate (Ambien) 5 mg PO HS PRN PRN Reason: Sleep Last Admin: 06/28/16 20:45 Dose: 5 mg - Labs Labs: 07/01/16 06:05 07/01/16 06:05 PT 11.0 SECONDS (9.6-11.2) 06/09/16 04:10 INR 1.06 (0.92-1.08) 06/09/16 04:10 APTT 27.5 SECONDS (23.3-32.5) 06/03/16 22:33
--- NOTE | 2016-07-01 21:23 | PN ---
DATE: 07/01/2016 LOCATION: Room 434 SUBJECTIVE: This is a 66-year-old female with overt thyrotoxicosis at this time. She actually pres ented here with hypothyroidism and now is to be switched over to Tapazole medication as ordered. She is being treated now for congestive heart failure and also underlying exacerbation of COPD, currentl y still on IV steroids, as ordered. Her latest chemistries showed BUN of 12, sodium 142, potassium 2.4, chloride 98, CO2 of 34, glucose 1 22, and creatinine 0.4. Her latest thyroid studies showed a TSH of 0.03 with a T4 of 6.15, and a linda e T4 of 0.92. So at this time, we increased the Tapazole to 5 mg b.i.d. after meals to start today. We will obtain thyroid studies and adjust her dose regimen to optimize metabolic control. We will follow. Polly Vu MD cc: [id number] TT: 07/01/2016 21:22:39 Confirmation # [id number] Dictation # [id number] ln
[2016-07-02] MEDS: Piperacillin/Tazobact 3.375 GM in Sodium Chloride 0.9% 100 ML IVPB SCH ×3 (02:16→16:38)
[2016-07-02] MEDS: Nitroglycerin 2% 1GM UD TOP SCH ×4 (05:07→22:27)
--- NOTE | 2016-07-02 05:55 | PN ---
DATE: 07/01/2016 The patient is located in room 434. REQUESTED BY: Dr. Margarito Rivero. REASON FOR RENAL CONSULTATION: Metabolic alkalosis, hypokalemia, for further evaluation. HISTORY OF PRESENT ILLNESS: The patient is a 66-year-old elderly female with a history of hypertension, hypothyroidism, CHF, history of breast CA, bilateral status post surgery and radiation and chemotherapy, was admitted with swelling of the right side of the face and being treated for oste omyelitis of the mandible and the hospital course complicated by severe hypokalemia and metabolic alk alosis. The patient is complaining this evening constant chest discomfort and also slight tachycardi a. Denies any nausea, vomiting, no abdominal pain. The patient was found to have again severe hypok alemia this morning, potassium 2.4 and receiving 6 runs of KCl and also p.o. KCL supplement. PHYSICAL EXAMINATION: VITAL SIGNS: As follows: Blood pressure 128/92, pulse 119, respirations about 25, temperature 98.5, saturation 97%, height 5 feet 2 inches, and weight is 115 pounds. GENERAL: The patient is a 66-year-old elderly female, thin built, not in distress. HEENT: Pupils normal reactive to light and accommodation. Conjunctivae pink. Sclerae anicteric. T ongue is moist. NECK: Trachea is midline. LUNGS: Symmetric on both sides. Bilateral breath sounds present. No crackles. CARDIOVASCULAR: [place] in the fifth intercostal space midclavicular line. S1, S2 audible, tachycardic . ABDOMEN: Normal in appearance, soft, tympanic. No guarding, no rigidity. No hepatosplenomegaly. CENTRAL NERVOUS SYSTEM: The patient is alert, awake, oriented x 3, nonfocal on examination. EXTREMITIES: The patient has swelling of the right upper extremity and bilateral lower extremity swe lling +1 to 2+ edema. CURRENT MEDICATIONS: Include as follows: Albuterol inhaler, spironolactone 25 mg p.o. daily, Ambien 5 mg p.o. at bedtime, anastrozole 1 mg p.o. daily, lactobacillus and fluconazole and Roflumilast 500 mcg p.o. daily, albuterol/ipratropium, Hydrocerin, loperamide, baclofen, Lovenox, meropenem 1 gram, morphine 2 mg IV q. 4 hours, Mucinex and also nitroglycerin 1 inch for q. 6 hours and sublingua l nitro p.r.n. and KCl 20 mEq p.o. b.i.d., and Protonix 40 mg IV daily, hydrocortisone 100 mg q. 12 h ours, metronidazole 5 mg p.o. b.i.d. and multivitamin 1 tablet p.o. daily, Tylenol, Zosyn 3.375 grams q. 8 hours, Zyvox 600 mg q. 12 hours. LABORATORY DATA: Include as follows: As of 07/01/2016. WBC 10.2, hemoglobin 11.4, hematocrit is 37 .4, platelets 257. Sodium 142, potassium 2.4, chloride 98, CO2 of 34, BUN 12, creatinine 0.4, glucos e 122, calcium 8.3, total bilirubin 0.4, AST 29, ALT 51, alkaline phosphatase 92. Troponin 0.03 and total protein 4.8, albumin is 2.6. Stool for C. diff toxin is negative. Serum aldosterone level is 1 and serum renin is 2.76. SUMMARY: The patient is a 66-year-old elderly female with a history of hypertension, breas t cancer bilateral mastectomy, status post chemoradiation, hypothyroidism, and also congestive heart failure, who is being treated for osteomyelitis of the mandible with severe hypokalemia, and metaboli c alkalosis. 1. Hypokalemia, etiology is not clear, primary hyperaldosteronism was ruled out with low aldosterone and normal renin levels and CAT scan of abdomen was not consistent with adrenal lesions. 2. Metabolic alkalosis, rule out secondary to diarrhea. Cannot rule Gitelman syndrome, consider to check 24-hour urine for calcium and magnesium levels and will repeat urine electrolytes. We will fol low with you. Thank you for allowing me to participate in your patient's care. I agree with potassium supplement a nd continue Aldactone at this time. Randall Lerma MD cc: [phone] TT: 07/02/2016 05:54:04 Confirmation # [id number] Dictation # [id number] in
[2016-07-02 05:56] LABS: HEMATOCRIT 37.7 % (34.0-47.0); MEAN CELL VOLUME 83.4 fl (81.0-99.0); MEAN CORPUSCULAR HEMOGLOBIN 25.5 pg (27.0-31.0); MEAN CORPUSCULAR HGB CONC 30.5 g/dL (33.0-37.0); RED CELL DISTRIBUTION WIDTH 32.3 % (11.5-14.5)
[2016-07-02 06:17] LABS: BLOOD UREA NITROGEN 10 mg/dl (7-17); CALCIUM 7.8 mg/dL (8.4-10.2); CARBON DIOXIDE 33 mmol/L (22-30); CHLORIDE 97 mmol/L (98-107); GFR AFRICAN-AMERICAN > 60; GLUCOSE,RANDOM 247 mg/dL (65-105); SODIUM 141 mmol/l (132-148)
[2016-07-02 06:27] LABS: POTASSIUM 2.3 MMOL/L (3.6-5.0)
[2016-07-02] MEDS ORDERED: Potassium Chloride 40 mEq/30 ml LIQ UD PO STA (06:31)
[2016-07-02] MEDS ORDERED: Potassium Chloride 20 mEq/15 ml LIQ UD PO STA (06:49)
[2016-07-02] MEDS: Potassium CL 10 MEQ/50 ML 50 ML IVPB SCH ×12 (06:56→22:24)
--- NOTE | 2016-07-02 07:17 | CP.PCM.PN ---
Subjective - Date & Time of Evaluation Date of Evaluation: 07/02/16 Time of Evaluation: 10:00 - Subjective Subjective: I have personally seen and examined patient bedside.Chronically ill female sitting in bed on high flow O2 via NC 25 LPM on FIO2 30 % tachycardic HR 108 and with dyspnea but better .Complains of dyspnea at rest and especially with minimal effort,but able to expectorate minimal amount of sputum today. Right facial swellingstill present, less tender to palpation. With 5 soft BM overnight BP 108/57 WBC 9 K Hgb 11.5 K 2.3 Na 141 I/O 1680/3600 Objective - Vital Signs/Intake and Output Vital Signs (last 24 hours): Temp Pulse Resp BP Pulse Ox 97.9 F 108 H 22 108/27 L 96 07/02/16 04:00 07/02/16 04:00 07/02/16 04:18 07/02/16 04:00 07/02/16 04:00 Intake and Output: 07/02/16 07/02/16 06:59 18:59 Intake Total 400 Output Total 1500 Balance -1100 - Medications Medications: Current Medications Acetaminophen (Tylenol 325mg Tab) 650 mg PO Q6 PRN PRN Reason: Pain, moderate (4-7) Last Admin: 06/28/16 01:46 Dose: 650 mg Acetylcysteine (Mucomyst 10% 4ml) 2 ml IH RBID [facility] Last Admin: 07/01/16 19:58 Dose: 2 ml Albuterol Sulfate (Albuterol 0.083% Inhal Aby (2.5 Mg/3 Ml) Ud) 2.5 mg INH RQ4 PRN PRN Reason: Shortness of Breath Last Admin: 07/01/16 07:45 Dose: 2.5 mg Albuterol/Ipratropium (Duoneb 3 Mg/0.5 Mg (3 Ml) Ud) 3 ml INH RQID [facility] Last Admin: 07/01/16 19:58 Dose: 3 ml Anastrozole (Arimidex 1 Mg Tab) 1 mg PO DAILY [facility] Last Admin: 07/01/16 09:07 Dose: 1 mg Baclofen (Lioresal) 10 mg PO HS [facility] Last Admin: 07/01/16 21:19 Dose: 10 mg Enoxaparin Sodium (Lovenox) 40 mg SC DAILY [facility] PRN Reason: Protocol Last Admin: 07/01/16 09:09 Dose: 40 mg Gabapentin (Neurontin) 600 mg PO Q8H [facility] Last Admin: 07/02/16 05:07 Dose: 600 mg Guaifenesin (Mucinex La) 600 mg PO Q12 [facility] Last Admin: 07/01/16 21:19 Dose: 600 mg Meropenem 1 gm/ Sodium (Chloride) 100 mls @ 100 mls/hr IVPB Q12@0800,2000 [facility] Last Admin: 07/01/16 21:20 Dose: 100 mls/hr Piperacillin Sod/Tazobactam (Sod 3.375 gm/ Sodium Chloride) 100 mls @ 100 mls/ hr IVPB Q8 [facility] Last Admin: 07/02/16 02:16 Dose: 100 mls/hr Linezolid (Zyvox 600mg/300ml D5w) 300 mls @ 300 mls/hr IVPB Q12 [facility] Last Admin: 07/01/16 21:21 Dose: 300 mls/hr Fluconazole (Diflucan Iv 200 Mg/100 Ml Ns) 100 mls @ 100 mls/hr IVPB DAILY [facility] Last Admin: 07/01/16 09:08 Dose: 100 mls/hr Hydrocortisone Sodium Succinate 100 mg/ Sodium Chloride 100 mls @ 100 mls/hr IV Q12H [facility] Last Admin: 07/01/16 20:15 Dose: 100 mls/hr Potassium Chloride (Potassium Cl 10meq/50ml Sterile Water) 50 mls @ 50 mls/hr IVPB Q1 [facility] Stop: 07/02/16 10:59 Last Admin: 07/02/16 06:56 Dose: 50 mls/hr Lactobacillus Acidophilus (Bacid Acidophilus) 1 cap PO BID [facility] Last Admin: 07/01/16 17:51 Dose: 1 cap Loperamide HCl (Imodium) 2 mg PO QID PRN PRN Reason: Loose stools Last Admin: 07/02/16 05:07 Dose: 2 mg Methimazole (Tapazole) 5 mg PO BID [facility] Morphine Sulfate (Morphine) 2 mg IVP Q4 PRN PRN Reason: Pain, moderate (4-7) Last Admin: 07/01/16 17:51 Dose: 2 mg Multi-Ingredient Cream (Hydrocerin Cream) 1 applic TOP BID [facility] Last Admin: 07/01/16 16:49 Dose: 1 applic Multivitamins/Minerals (Therapeutic-M Tab) 1 tab PO DAILY [facility] Last Admin: 07/01/16 09:05 Dose: 1 tab Nitroglycerin (Nitro-Bid 2% Oint) 1 in TOP Q6 [facility] Last Admin: 07/02/16 05:07 Dose: 1 in Pantoprazole Sodium (Protonix Ec Tab) 40 mg PO DAILY [facility] Last Admin: 07/01/16 09:05 Dose: 40 mg Roflumilast (Daliresp) 500 mcg PO DAILY [facility] Last Admin: 07/01/16 16:49 Dose: 500 mcg Spironolactone (Aldactone) 25 mg PO DAILY [facility] Last Admin: 07/01/16 09:04 Dose: 25 mg Zolpidem Tartrate (Ambien) 5 mg PO HS PRN PRN Reason: Sleep Last Admin: 07/01/16 21:35 Dose: 5 mg - Labs Labs: 07/02/16 04:00 07/02/16 04:00 PT 11.0 SECONDS (9.6-11.2) 06/09/16 04:10 INR 1.06 (0.92-1.08) 06/09/16 04:10 APTT 27.5 SECONDS (23.3-32.5) 06/03/16 22:33 - Constitutional Appears: Chronically Ill - Head Exam Head Exam: ATRAUMATIC Additional comments: right facial swelling - Eye Exam Eye Exam: EOMI, Normal appearance, PERRL Pupil Exam: NORMAL ACCOMODATION - ENT Exam ENT Exam: Mucous Membranes Moist, Normal Exam - Neck Exam Neck Exam: Full ROM, Normal Inspection - Respiratory Exam Respiratory Exam: Decreased Breath Sounds (bibasilar ), Prolonged Expiratory Phase. absent: Rhonchi, Wheezes - Cardiovascular Exam Cardiovascular Exam: Tachycardia, REGULAR RHYTHM. absent: JVD - GI/Abdominal Exam GI & Abdominal Exam: Soft, Normal Bowel Sounds. absent: Distended, Guarding, Tenderness, Rebound - Rectal Exam Rectal Exam: Deferred - Extremities Exam Extremities Exam: Pedal Edema (bilateral 3 = LE edema) Additional comments: Right upper extremity lymphedema - Neurological Exam Neurological Exam: Alert, Awake, CN II-XII Intact, Oriented x3 - Psychiatric Exam Psychiatric exam: Normal Affect - Skin Skin Exam: Dry, Pallor, Warm Assessment and Plan - Assessment and Plan (Free Text) Assessment: 66 y/o female PMH COPD, bilateral breast CA s/p chemo and radiation 8 years ago with bone mets to shoulder (s/p humeral resection), HTN, Hyperthyroidism presented with 2 week history of worsening bilateral lower extremity swelling and weakness, unable to get herself up to her walker. Patient has mild dyspnea at baseline. She also came with a large right facial swelling for almost 2 weeks and was taking PO antibiotics prescribed by her dentist. Patient was admitted for generalized weakness , Hyponatremia and Facial abscess. She was started on IV antibiotics for facial abscess and Lasix IV with fluid restriction for LE edema. Maxillofacial Ct showed possible abscess accumulation. Evaluated by Oromaxillofacial surgeon and underwent Incision and drainage of abscess. Bone scan showed possible osteomyelitis . ID recommends 4-6 wks IV abx treatment. During this hospitalization noted to have increased dyspnea at rest and more so with minimal activity, decreased air entry bilaterally and increased work of breathing. She was started on high flow O2, Higher doses of theophylline and IV hydrocortisone. CTA chest and LE doppler showed no DVT , except right cephallic cherelle thrombosis . She was transferred to ICU for close monitoring for tachypnea and tachycardia. At present, still on High Flow Oxygen 25 LMP FIO2 30 % with good oxygenation but still with episodes of respiratory distress and tachycardia. Episodes of pressure like chest pain relieved with morphine and nitro.. Right Facial abscess is still present 1. Chest Pain r/o ACS with pressure like chest pain ton and off cardiology consult with Dr. Luu appreciated Trop -- negative and EKG showed no ST-T wave changes Most likely atypical chest pain related to anxiety , hypokalemia and COPD. There is no signs of ischemia 2. Acute on Chronic Respiratory Insufficiency with hypercapnea Most likely secondary to COPD exacerbation with acute bronchitis and CHF exacerbation Continue high flow O2 via NC 25 LMP on FIO2 30 % CT chest showed no PE and improved bilateral pleural effusion after diuresis LE doppler showed no DVT decreased Aldactone to 25 mg QD bec of hypokalemia Continue Duonebs Continue Chest PT , Coughalator and Acapella therapy Dr. Benz following patient closely Discontinued ASA, coreg , Theophylline and started daliresp jie Hydrocortisone to 100 mg IV daily Replace K accordingly on very low dose Xanax 0.25 bid prn as this seem to help when pt gets very anxious, tachypenic and tachycardic 3. Facial abscess with mandibular Osteomyelitis s/p drainage of abscess Maxillofacial Ct showed :Large enhancing wall collection seen around the mid and upper right mandibular ramus and mandibular neck extending anteriorly and seen medial and lateral to the right zygomatic arch. This collection contains foci of air. The density and the appearance of this collection suggestive of abscess formation. The collection is seen anterior to the right parotid gland and extending medially to the posterior right oral cavity. [id number] right maxillary sinus mucosal thickening and small air-fluid level. Partial opacification of both mastoids suggestive of mastoiditis. ID on consult: Dr Obrien. Recommended IV abx 6 wks total ( # Day ) OMFS Dr. 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 Priest appreciated. He recommends maxillofacial evaluation for dental abscess , not parotitis. Dr Ambrose re consulted -waiting re kasi Patient may need drainage of abscess again 4. Bilateral LE edema sec to CHF exacerbation with diastolic dysfxn still with LE edema bilateral 2 + diuresing well with negative balance I/O 1680/3600 Echo showed EF 40-45 % and dilated RV continue fluid restriction Promote ambulation Continue Aldactone 25 mg QD 5.Hypokalemia multifactorial diuretic induced , Albuterol, Hypothyroidism and GI loss ( had 5 BM ) Lasix changed to Aldactone Continue KCl runs and PO replacement K 2.3 today Nephro consul appreciated CT of abd showed no adrenal mass 6 .Hyponatremia, resolved most likely secondary to solute depletion and infection Continue fluid restriction 7.Hx breast ca, bilateral stable, s/p bilateral mastectomy continue arimidex 8. Tachycardia -- multifactorial Hx of HTN was on verapamil at home ( 80mg tid) but decresaed dose due to low BP and now discontinued as may contribute to leg edema started low dose Coreg but discontinued due to COPD continue monitoring 9. Hypothyroidism patient has history of hyperthyroidism and was on Methimazole but had developed hypothyroidism so Methimazole was d/c and she was started on Po levothyroxine- At present TSH 0.03 so Methimazole 5 mg po Qd restarted by endo d/c levothyroxine 10. Anemia, chronic dis monitor anemia work up showed depleted iron stores Venofer IV given s/p 2 units PRBC transfusion 11. Right cephalic vein thrombosis ( superficial vein) on lovenox 12.DVT ppx lovenox
[2016-07-02] MEDS: Acetylcysteine 10% 4 ML IH SCH (08:00)
[2016-07-02] MEDS: Albuterol-Ipratrop 3 mg / 0.5 (3 ml) UD INH SCH ×4 (08:00→19:27)
[2016-07-02] MEDS: Meropenem 1 GM in Sodium Chloride 0.9% 100 ML IVPB SCH ×2 (08:26→20:03)
[2016-07-02] MEDS: Lactobacillus Acidophilus 500 MU Cap PO SCH ×2 (08:27→16:29)
[2016-07-02] MEDS: methIMAzole 5 MG TAB PO SCH ×3 (08:28→16:37)
[2016-07-02] MEDS: Hydrocerin CREAM TOP SCH ×2 (08:51→16:29)
[2016-07-02] MEDS: Enoxaparin 40 mg Syringe SC SCH (08:52)
[2016-07-02] MEDS: Pantoprazole 40 mg EC Tab PO SCH (08:53)
[2016-07-02] MEDS: guaiFENesin 600 mg ER Tab PO SCH ×2 (08:53→21:12)
[2016-07-02] MEDS: Multivitamin With Minerals Tab PO SCH (08:53)
[2016-07-02] MEDS: Fluconazole IV 200mg/100 ml NS 100 ML IVPB SCH (09:45)
--- NOTE | 2016-07-02 09:48 | CP.CCUPN ---
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 Remains on HFNC with acceptable SPo2 at 95-96% whenever a good signal / pleth can be obtained transcutaneously. Denies any increase in facial discomfort. VS: Afebrile, 126/89, HR 109 sinus, RR 17-24, 96% on 30% / 25LPM HFNC. 12H I/O s= neg 1900ml ROS: as above, no other pertinent negs or positives on 10 system review. PMFSH: all nursing and historical notes reviewed, no new pertinent data relevant to current problems. No other distress noted: EXAM- HEENT: no icterus, pupils equal and reactive, prominent induration R cheek NECK: no visible JVD, supple, carotids equal upstroke bilat/no bruits CHEST: decreased BS bases, no wheezes audible. R upper chest PICC. Left mastectomy HEART: regular, distant, S1S2, no murmur audible, no rubs. ABD: soft, no increased distention, no focal tenderness, no HSM. BS hypoactive , EXT: ++ edema, RUE chronically edematous with lymphedema, no peripheral/ digital cyanosis, no calf tenderness or palpable cords, distal pulses intact and symmetrical NEURO: oriented x 3; no gross focal motor deficits SKIN: no rashes LABS: WBC= 9.0 HGB= 11.5 PLTs= 245K Na= 141 K= 2.3 HCO3= 33 BUN/Cr= 10/0.4 BS= 247 Assessment: 1. Acute hypercapneic hypoxemic Resp Failure, 2 Bronchitis and poor mobilization of secretions; on HFNC, h/o COPD with Emphysematous lung disease. 2. R Mandible Osteomyelitis 3. Severe hypokalemia-recurrent 4. Anasarca / Severe hypoalbuminema 5. h/o Hyperthyroidism, and now Hypothyroid. 6. h/o metastatic breast CA PLAN: 1. Already received 40 meq K po, and undergoing IV replacement with 4 KCL runs. Expect requirements to day to exceed 80 MEq and may approach 160 Meq. Still unclear etiology ( may be multifactorial) for this level of hypokalemia. Will check urine lytes, she is off diuretics, but on steroids, and it may be due to GI loss from frequent BMs (7 episodes overnight). 2. Chest pressure discomfort may be related to recent hypokalemia. 3. Check mag/ phos levels. 4. +VRE growth from wound/abscess: on Zyvox
[2016-07-02 11:16] LABS: PHOSPHOROUS 2.2 mg/dl (2.5-4.5)
[2016-07-02] MEDS: Linezolid 600 mg in D5W 300 ml 300 ML IVPB SCH ×2 (11:17→21:05)
--- NOTE | 2016-07-02 12:59 | RAD ---
PROCEDURE: CHEST RADIOGRAPH, 1 VIEW HISTORY: dyspnea COMPARISON: None available. FINDINGS: LUNGS: No change left IJ introducer should she with tip in the SVC or right-sided central venous line tip in the SVC. Metallic clips right axillary region. PLEURA: Hyperinflation suggesting underlying chronic changes of emphysema. . Bibasilar atelectasis and or small infiltrates and small effusions CARDIOVASCULAR: Heart size is upper limits of normal. OSSEOUS STRUCTURES: Apparent postoperative changes right humerus however clinical correlation recommended VISUALIZED UPPER ABDOMEN: Normal. OTHER FINDINGS: None. IMPRESSION: Hyperinflation consistent with emphysema. Bibasilar atelectasis and or small infiltrates and bilateral effusions.
--- NOTE | 2016-07-02 13:22 | CP.PCM.PN ---
Subjective - Date & Time of Evaluation Date of Evaluation: 07/02/16 Time of Evaluation: 13:22 - Subjective Subjective: Interim events reviewed. Patient seen on rounds in the ICU. Appears a little more comfortable than the preceeding few days. On methimazole 5MG BID now. Oxygenation is okay at 95% on nasal high flow 30%, 20LPM. Still somewhat tachycardic and still having frequent formed BM's. Plasma potassium is still very low despite supplementation. Cough is more loose today and she was able to expectorate some yellow sputum. She still complains of chest tightness at times, very possibly thyroid related. Facial swelling is a little less today, less tender as well. Neck is supple and trachea midline. Breath sounds are diminished bilaterally w/o audible wheezing. Few rhonchi are heard in the dependant zones of both lungs. ++ dependant edema and chronic RUE lymphedema is unchanged. No cyanosis. K supplements again today. Hydrocortisone decreased to 100MG once daily. Theophylline has been discontinued. Roflumilast started, cautious use with concomitant fluconazole. Need to consider having drainage of the abscess. Continued aerosol therapies. Objective - Vital Signs/Intake and Output Vital Signs (last 24 hours): Temp Pulse Resp BP Pulse Ox 98.1 F 116 H 17 111/80 96 07/02/16 12:00 07/02/16 12:00 07/02/16 12:00 07/02/16 12:00 07/02/16 12:00 Intake and Output: 07/02/16 07/02/16 11:59 23:59 Intake Total 700 Output Total 1500 Balance -800 - Medications Medications: Current Medications Acetaminophen (Tylenol 325mg Tab) 650 mg PO Q6 PRN PRN Reason: Pain, moderate (4-7) Last Admin: 06/28/16 01:46 Dose: 650 mg Acetylcysteine (Mucomyst 10% 4ml) 2 ml IH RBID [facility] Last Admin: 07/02/16 08:00 Dose: 2 ml Albuterol Sulfate (Albuterol 0.083% Inhal Aby (2.5 Mg/3 Ml) Ud) 2.5 mg INH RQ4 PRN PRN Reason: Shortness of Breath Last Admin: 07/01/16 07:45 Dose: 2.5 mg Albuterol/Ipratropium (Duoneb 3 Mg/0.5 Mg (3 Ml) Ud) 3 ml INH RQID [facility] Last Admin: 07/02/16 11:41 Dose: 3 ml Anastrozole (Arimidex 1 Mg Tab) 1 mg PO DAILY [facility] Last Admin: 07/02/16 08:32 Dose: 1 mg Baclofen (Lioresal) 10 mg PO HS [facility] Last Admin: 07/01/16 21:19 Dose: 10 mg Enoxaparin Sodium (Lovenox) 40 mg SC DAILY [facility] PRN Reason: Protocol Last Admin: 07/02/16 08:52 Dose: 40 mg Gabapentin (Neurontin) 600 mg PO Q8H [facility] Last Admin: 07/02/16 05:07 Dose: 600 mg Guaifenesin (Mucinex La) 600 mg PO Q12 [facility] Last Admin: 07/02/16 08:53 Dose: 600 mg Meropenem 1 gm/ Sodium (Chloride) 100 mls @ 100 mls/hr IVPB Q12@0800,2000 [facility] Last Admin: 07/02/16 08:26 Dose: 100 mls/hr Piperacillin Sod/Tazobactam (Sod 3.375 gm/ Sodium Chloride) 100 mls @ 100 mls/ hr IVPB Q8 [facility] Last Admin: 07/02/16 08:54 Dose: 100 mls/hr Linezolid (Zyvox 600mg/300ml D5w) 300 mls @ 300 mls/hr IVPB Q12 [facility] Last Admin: 07/02/16 11:17 Dose: 300 mls/hr Fluconazole (Diflucan Iv 200 Mg/100 Ml Ns) 100 mls @ 100 mls/hr IVPB DAILY [facility] Last Admin: 07/02/16 09:45 Dose: 100 mls/hr Hydrocortisone Sodium Succinate 100 mg/ Sodium Chloride 100 mls @ 100 mls/hr IV DAILY [facility] Potassium Chloride (Potassium Cl 10meq/50ml Sterile Water) 50 mls @ 50 mls/hr IVPB Q1 [facility] Stop: 07/02/16 17:59 Last Admin: 07/02/16 12:52 Dose: 50 mls/hr Lactobacillus Acidophilus (Bacid Acidophilus) 1 cap PO BID [facility] Last Admin: 07/02/16 08:27 Dose: 1 cap Loperamide HCl (Imodium) 2 mg PO QID PRN PRN Reason: Loose stools Last Admin: 07/02/16 08:51 Dose: 2 mg Methimazole (Tapazole) 5 mg PO BID [facility] Last Admin: 07/02/16 08:28 Dose: 5 mg Morphine Sulfate (Morphine) 2 mg IVP Q4 PRN PRN Reason: Pain, moderate (4-7) Last Admin: 07/01/16 17:51 Dose: 2 mg Multi-Ingredient Cream (Hydrocerin Cream) 1 applic TOP BID [facility] Last Admin: 07/02/16 08:51 Dose: 1 applic Multivitamins/Minerals (Therapeutic-M Tab) 1 tab PO DAILY [facility] Last Admin: 07/02/16 08:53 Dose: 1 tab Nitroglycerin (Nitro-Bid 2% Oint) 1 in TOP Q6 [facility] Last Admin: 07/02/16 11:18 Dose: 1 in Pantoprazole Sodium (Protonix Ec Tab) 40 mg PO DAILY [facility] Last Admin: 07/02/16 08:53 Dose: 40 mg Roflumilast (Daliresp) 500 mcg PO DAILY [facility] Last Admin: 07/02/16 08:27 Dose: 500 mcg Spironolactone (Aldactone) 25 mg PO DAILY [facility] Last Admin: 07/02/16 08:29 Dose: 25 mg Zolpidem Tartrate (Ambien) 5 mg PO HS PRN PRN Reason: Sleep Last Admin: 07/01/16 21:35 Dose: 5 mg - Labs Labs: 07/02/16 04:00 07/02/16 04:00 PT 11.0 SECONDS (9.6-11.2) 06/09/16 04:10 INR 1.06 (0.92-1.08) 06/09/16 04:10 APTT 27.5 SECONDS (23.3-32.5) 06/03/16 22:33 Assessment and Plan (1) Acute bronchitis with chronic obstructive pulmonary disease (COPD) Status: Acute (2) Hyperthyroidism Status: Chronic (3) Abscess Status: Acute
[2016-07-02] MEDS: Hydrocortisone- 100 MG in Sodium Chloride 0.9% 100 ML IV SCH (13:32)
--- NOTE | 2016-07-02 18:52 | PN ---
DATE: 07/02/2016 ROOM 434 ICU. This is a 66-year-old female with recent congestive heart failure and supervening exacerbation of [employer] D currently on IV steroid therapy, and is now being followed closely for metabolic management. She w as restarted on Tapazole for management of subclinical hyperthyroidism noted. Her latest thyroid [place] dy showed a T4 of 6.15 noted with a TSH of 0.03, and a free T4 of 0.92. So at this time, will continue the Tapazole modified to a dose of 5 mg p.o. b.i.d. after meals as ord ered. Will titrate incrementally as indicated to optimize metabolic control. Will obtain serial thy roid studies and supplement accordingly as needed. Will follow. Polly Vu MD cc: [id number] TT: 07/02/2016 18:52:14 Confirmation # [id number] Dictation # [id number] [place]
--- NOTE | 2016-07-02 20:39 | CP.PCM.PN ---
Subjective - Date & Time of Evaluation Date of Evaluation: 07/02/16 Time of Evaluation: 20:39 - Subjective Subjective: pt seenand examined,follow up consult isdictated #[id number] Objective - Vital Signs/Intake and Output Vital Signs (last 24 hours): Temp Pulse Resp BP Pulse Ox 97.6 F 113 H 11 L 102/65 98 07/02/16 20:00 07/02/16 20:00 07/02/16 20:00 07/02/16 20:00 07/02/16 20:00 Intake and Output: 07/02/16 07/03/16 18:59 06:59 Intake Total 1300 158 Output Total 950 Balance 350 158 - Medications Medications: Current Medications Acetaminophen (Tylenol 325mg Tab) 650 mg PO Q6 PRN PRN Reason: Pain, moderate (4-7) Last Admin: 06/28/16 01:46 Dose: 650 mg Acetylcysteine (Mucomyst 10% 4ml) 2 ml IH RBID [facility] Last Admin: 07/02/16 08:00 Dose: 2 ml Albuterol Sulfate (Albuterol 0.083% Inhal Aby (2.5 Mg/3 Ml) Ud) 2.5 mg INH RQ4 PRN PRN Reason: Shortness of Breath Last Admin: 07/01/16 07:45 Dose: 2.5 mg Albuterol/Ipratropium (Duoneb 3 Mg/0.5 Mg (3 Ml) Ud) 3 ml INH RQID [facility] Last Admin: 07/02/16 19:27 Dose: 3 ml Anastrozole (Arimidex 1 Mg Tab) 1 mg PO DAILY [facility] Last Admin: 07/02/16 08:32 Dose: 1 mg Baclofen (Lioresal) 10 mg PO HS [facility] Last Admin: 07/01/16 21:19 Dose: 10 mg Enoxaparin Sodium (Lovenox) 40 mg SC DAILY [facility] PRN Reason: Protocol Last Admin: 07/02/16 08:52 Dose: 40 mg Gabapentin (Neurontin) 600 mg PO Q8H [facility] Last Admin: 07/02/16 15:28 Dose: 600 mg Guaifenesin (Mucinex La) 600 mg PO Q12 [facility] Last Admin: 07/02/16 08:53 Dose: 600 mg Meropenem 1 gm/ Sodium (Chloride) 100 mls @ 100 mls/hr IVPB Q12@0800,2000 [facility] Last Admin: 07/02/16 20:03 Dose: 100 mls/hr Piperacillin Sod/Tazobactam (Sod 3.375 gm/ Sodium Chloride) 100 mls @ 100 mls/ hr IVPB Q8 [facility] Last Admin: 07/02/16 16:38 Dose: 100 mls/hr Linezolid (Zyvox 600mg/300ml D5w) 300 mls @ 300 mls/hr IVPB Q12 [facility] Last Admin: 07/02/16 11:17 Dose: 300 mls/hr Fluconazole (Diflucan Iv 200 Mg/100 Ml Ns) 100 mls @ 100 mls/hr IVPB DAILY [facility] Last Admin: 07/02/16 09:45 Dose: 100 mls/hr Hydrocortisone Sodium Succinate 100 mg/ Sodium Chloride 100 mls @ 100 mls/hr IV DAILY [facility] Last Admin: 07/02/16 13:32 Dose: 100 mls/hr Lactobacillus Acidophilus (Bacid Acidophilus) 1 cap PO BID [facility] Last Admin: 07/02/16 16:29 Dose: 1 cap Loperamide HCl (Imodium) 2 mg PO QID PRN PRN Reason: Loose stools Last Admin: 07/02/16 08:51 Dose: 2 mg Methimazole (Tapazole) 5 mg PO BID [facility] Last Admin: 07/02/16 16:37 Dose: 5 mg Morphine Sulfate (Morphine) 2 mg IVP Q4 PRN PRN Reason: Pain, moderate (4-7) Last Admin: 07/01/16 17:51 Dose: 2 mg Multi-Ingredient Cream (Hydrocerin Cream) 1 applic TOP BID [facility] Last Admin: 07/02/16 16:29 Dose: 1 applic Multivitamins/Minerals (Therapeutic-M Tab) 1 tab PO DAILY [facility] Last Admin: 07/02/16 08:53 Dose: 1 tab Nitroglycerin (Nitro-Bid 2% Oint) 1 in TOP Q6 [facility] Last Admin: 07/02/16 16:31 Dose: 1 in Pantoprazole Sodium (Protonix Ec Tab) 40 mg PO DAILY [facility] Last Admin: 07/02/16 08:53 Dose: 40 mg Roflumilast (Daliresp) 500 mcg PO DAILY [facility] Last Admin: 07/02/16 08:27 Dose: 500 mcg Spironolactone (Aldactone) 25 mg PO DAILY [facility] Last Admin: 07/02/16 08:29 Dose: 25 mg Zolpidem Tartrate (Ambien) 5 mg PO HS PRN PRN Reason: Sleep Last Admin: 07/01/16 21:35 Dose: 5 mg - Labs Labs: 07/02/16 04:00 07/02/16 04:00 PT 11.0 SECONDS (9.6-11.2) 06/09/16 04:10 INR 1.06 (0.92-1.08) 06/09/16 04:10 APTT 27.5 SECONDS (23.3-32.5) 06/03/16 22:33
[2016-07-03] MEDS: Piperacillin/Tazobact 3.375 GM in Sodium Chloride 0.9% 100 ML IVPB SCH ×3 (01:13→16:21)
--- NOTE | 2016-07-03 02:11 | PN ---
DATE: 07/02/2016 The patient is located in room 434, bed 1. REQUESTED BY: Dr. Margarito Rivero. REASON FOR RENAL CONSULTATION: Hypokalemia, metabolic alkalosis. HISTORY OF PRESENT ILLNESS: The patient is a 66-year-old elderly female with a history of hypertension, hypothyroidism, and COPD, CHF, and bilateral breast CA status post surgery, chemotherapy, radiation, and also bilateral shoulder surgeries, who was admitted with right-sided swelling of the face and being treated for osteomyelitis of the mandible on multiple antibiotics. The patient is complaining of diarrhea last night about 7 times, about 3 times today. Denies any nausea, vomiting. The patient does complain of mild chest discomfort on and off. PHYSICAL EXAMINATION: VITAL SIGNS: As follows: Blood pressure 102/65, pulse 113, respirations about 11, temperature 97.6, saturation 98%, height 5 feet 2 inches and weight is 115 pounds. GENERAL: The patient is a 66-year-old elderly female, very fragile, not in distress. HEENT: Pupils normal reactive to light and accommodation. Conjunctivae pink. Sclerae anicteric. Tongue is moist. NECK: Trachea midline. LUNGS: Symmetric on both sides. Bilateral breath sounds present. Bilateral crackles present at bases. CARDIOVASCULAR: [place] at the fifth intercostal space midclavicular line. S1 and S2 audible, tachycardic. ABDOMEN: Normal in appearance, soft, tympanic. No guarding, no rigidity. No hepatosplenomegaly. CENTRAL NERVOUS SYSTEM: The patient is alert, awake, oriented x 3, nonfocal on examination. EXTREMITIES: No cyanosis, no clubbing, no edema of the lower extremities, right upper extremity is swollen. CURRENT MEDICATIONS: Include as follows: Albuterol inhaler q. 4 hours, spironolactone 25 mg p.o. daily, Ambien 5 mg p.o. at bedtime, anastrozole 1 mg p.o. daily, Bacid 1 capsule p.o. b.i.d., roflumilast p.o. daily, Diflucan 200 mg daily, and DuoNeb inhaler, Hydrocerin cream topical, hydrocortisone 100 mg daily, loperamide 2 mg p.o. q.i.d., baclofen 10 mg p.o. at bedtime, Lovenox 40 mg subQ daily, meropenem 1 gram q. 12 hours, morphine sulfate p.r.n., Mucinex, Mucomyst, gabapentin, Zosyn 3.375 g IV q. 8 hours, Zyvox 600 mg q. 12 hours, Tylenol, multivitamins, Tapazole 5 mg p.o. b.i.d., and Protonix 40 mg p.o. daily. LABORATORY DATA: Include as follows as of 07/02/2016: WBC 9, hemoglobin 11.5, hematocrit is 37.7, platelets 245. Sodium is 141, potassium is 2.3, chloride 97 , CO2 of 33, BUN 10, creatinine 0.4, glucose 247, calcium 7.8, phosphorus is 2.2 and magnesium is 2.0. Urine lytes, urine sodium is 63 and urine potassium is 57.1. SUMMARY: The patient is a 66-year-old elderly female with a history of longstanding hypertension, congestive heart failure, chronic obstructive pulmonary disease, and bilateral breast cancer, status post chemo and radiation and breast surgery, who was admitted with right-sided facial swelling and being treated for osteomyelitis of the mandible, with low potassium and low phosphorus. 1. Hypokalemia, most likely multifactorial secondary to metabolic alkalosis and also to diarrhea and hypothyroidism and beta 2 agonist, doubt primary hyperaldosteronism as aldosterone was low and renin was normal and cannot rule out Gitelman's syndrome. 2. Hypophosphatemia. 3. Osteomyelitis of the mandible. Continue antibiotics as per ID recommendations. I agree with the potassium supplement and supplementing phosphorus as Neutra-Phos 1 packet p.o. t.i.d. We will follow with you. Thank you for allowing me to participate in your patient's care. Randall Lerma MD cc: [id number] TT: 07/03/2016 02:10:24 Confirmation # [id number] Dictation # [id number] [facility]
[2016-07-03] MEDS: Nitroglycerin 2% 1GM UD TOP SCH ×4 (03:48→21:01)
[2016-07-03] MEDS: Albuterol-Ipratrop 3 mg / 0.5 (3 ml) UD INH SCH ×4 (07:49→19:18)
[2016-07-03] MEDS: Fluconazole IV 200mg/100 ml NS 100 ML IVPB SCH (08:07)
[2016-07-03] MEDS: Pantoprazole 40 mg EC Tab PO SCH (08:11)
[2016-07-03] MEDS: Enoxaparin 40 mg Syringe SC SCH (08:12)
[2016-07-03] MEDS: Lactobacillus Acidophilus 500 MU Cap PO SCH ×2 (08:12→16:58)
[2016-07-03] MEDS: guaiFENesin 600 mg ER Tab PO SCH ×2 (08:13→21:01)
[2016-07-03] MEDS: methIMAzole 5 MG TAB PO SCH ×2 (08:13→16:23)
[2016-07-03] MEDS: Multivitamin With Minerals Tab PO SCH (08:14)
[2016-07-03 08:25] LABS: HEMATOCRIT 37.4 % (34.0-47.0); MEAN CELL VOLUME 84.5 fl (81.0-99.0); MEAN CORPUSCULAR HEMOGLOBIN 25.8 pg (27.0-31.0); MEAN CORPUSCULAR HGB CONC 30.6 g/dL (33.0-37.0); RED CELL DISTRIBUTION WIDTH 32.9 % (11.5-14.5); WHITE BLOOD COUNT 8.8 K/uL (4.8-10.8)
[2016-07-03 08:40] LABS: BLOOD UREA NITROGEN 14 mg/dl (7-17); CALCIUM 8.3 mg/dL (8.4-10.2); CARBON DIOXIDE 33 mmol/L (22-30); CHLORIDE 100 mmol/L (98-107); GFR AFRICAN-AMERICAN > 60; GLUCOSE,RANDOM 85 mg/dL (65-105); MAGNESIUM 2.1 MG/DL (1.6-2.3); PHOSPHOROUS 2.5 mg/dl (2.5-4.5); POTASSIUM 4.4 MMOL/L (3.6-5.0); SODIUM 142 mmol/l (132-148)
[2016-07-03] MEDS: Meropenem 1 GM in Sodium Chloride 0.9% 100 ML IVPB SCH ×2 (08:54→20:00)
[2016-07-03] MEDS: Hydrocerin CREAM TOP SCH ×3 (09:31→18:03)
--- NOTE | 2016-07-03 09:42 | CP.PCM.PN ---
Subjective - Date & Time of Evaluation Date of Evaluation: 07/03/16 Time of Evaluation: 08:30 - Subjective Subjective: No fever Remains on High Flow Oxygen Right facial swelling remains the same- less pain accdg to pt no CP still with episodes of tachypnea, resp distress No abd pain soft BM this am Pt is asking for her Xanax Objective - Vital Signs/Intake and Output Vital Signs (last 24 hours): Temp Pulse Resp BP Pulse Ox 98.4 F 111 H 16 115/86 96 07/03/16 08:00 07/03/16 08:00 07/03/16 08:00 07/03/16 08:00 07/03/16 08:00 Intake and Output: 07/03/16 07/03/16 06:59 18:59 Intake Total 732 320 Output Total 300 Balance 432 320 - Medications Medications: Current Medications Acetaminophen (Tylenol 325mg Tab) 650 mg PO Q6 PRN PRN Reason: Pain, moderate (4-7) Last Admin: 06/28/16 01:46 Dose: 650 mg Acetylcysteine (Mucomyst 10% 4ml) 2 ml IH RBID [facility] Last Admin: 07/02/16 08:00 Dose: 2 ml Albuterol Sulfate (Albuterol 0.083% Inhal Aby (2.5 Mg/3 Ml) Ud) 2.5 mg INH RQ4 PRN PRN Reason: Shortness of Breath Last Admin: 07/01/16 07:45 Dose: 2.5 mg Albuterol/Ipratropium (Duoneb 3 Mg/0.5 Mg (3 Ml) Ud) 3 ml INH RQID [facility] Last Admin: 07/03/16 07:49 Dose: 3 ml Anastrozole (Arimidex 1 Mg Tab) 1 mg PO DAILY [facility] Last Admin: 07/03/16 08:27 Dose: 1 mg Baclofen (Lioresal) 10 mg PO HS [facility] Last Admin: 07/02/16 21:12 Dose: 10 mg Enoxaparin Sodium (Lovenox) 40 mg SC DAILY [facility] PRN Reason: Protocol Last Admin: 07/03/16 08:12 Dose: 40 mg Gabapentin (Neurontin) 600 mg PO Q8H [facility] Last Admin: 07/03/16 05:42 Dose: 600 mg Guaifenesin (Mucinex La) 600 mg PO Q12 [facility] Last Admin: 07/03/16 08:13 Dose: 600 mg Meropenem 1 gm/ Sodium (Chloride) 100 mls @ 100 mls/hr IVPB Q12@0800,2000 [facility] Last Admin: 07/03/16 08:54 Dose: 100 mls/hr Piperacillin Sod/Tazobactam (Sod 3.375 gm/ Sodium Chloride) 100 mls @ 100 mls/ hr IVPB Q8 [facility] Last Admin: 07/03/16 09:30 Dose: 100 mls/hr Linezolid (Zyvox 600mg/300ml D5w) 300 mls @ 300 mls/hr IVPB Q12 [facility] Last Admin: 07/02/16 21:05 Dose: 300 mls/hr Fluconazole (Diflucan Iv 200 Mg/100 Ml Ns) 100 mls @ 100 mls/hr IVPB DAILY [facility] Last Admin: 07/03/16 08:07 Dose: 100 mls/hr Hydrocortisone Sodium Succinate 100 mg/ Sodium Chloride 100 mls @ 100 mls/hr IV DAILY [facility] Last Admin: 07/02/16 13:32 Dose: 100 mls/hr Lactobacillus Acidophilus (Bacid Acidophilus) 1 cap PO BID [facility] Last Admin: 07/03/16 08:12 Dose: 1 cap Loperamide HCl (Imodium) 2 mg PO QID PRN PRN Reason: Loose stools Last Admin: 07/03/16 05:42 Dose: 2 mg Methimazole (Tapazole) 5 mg PO BID [facility] Last Admin: 07/03/16 08:13 Dose: 5 mg Morphine Sulfate (Morphine) 2 mg IVP Q4 PRN PRN Reason: Pain, moderate (4-7) Last Admin: 07/01/16 17:51 Dose: 2 mg Multi-Ingredient Cream (Hydrocerin Cream) 1 applic TOP BID [facility] Last Admin: 07/03/16 09:31 Dose: 1 applic Multivitamins/Minerals (Therapeutic-M Tab) 1 tab PO DAILY [facility] Last Admin: 07/03/16 08:14 Dose: 1 tab Nitroglycerin (Nitro-Bid 2% Oint) 1 in TOP Q6 [facility] Last Admin: 07/03/16 09:30 Dose: 1 in Pantoprazole Sodium (Protonix Ec Tab) 40 mg PO DAILY [facility] Last Admin: 07/03/16 08:11 Dose: 40 mg Roflumilast (Daliresp) 500 mcg PO DAILY [facility] Last Admin: 07/03/16 08:21 Dose: 500 mcg Spironolactone (Aldactone) 25 mg PO DAILY [facility] Last Admin: 07/03/16 08:11 Dose: 25 mg Zolpidem Tartrate (Ambien) 5 mg PO HS PRN PRN Reason: Sleep Last Admin: 07/02/16 22:31 Dose: 5 mg - Labs Labs: 07/03/16 05:50 07/03/16 05:50 PT 11.0 SECONDS (9.6-11.2) 06/09/16 04:10 INR 1.06 (0.92-1.08) 06/09/16 04:10 APTT 27.5 SECONDS (23.3-32.5) 06/03/16 22:33 - Constitutional Appears: Chronically Ill - Head Exam Head Exam: NORMAL INSPECTION, NORMOCEPHALIC - Eye Exam Eye Exam: EOMI, Normal appearance Pupil Exam: NORMAL ACCOMMODATION - ENT Exam ENT Exam: Mucous Membranes Dry, Normal External Ear Exam Additional comments: right facial swelling, + tenderness to touch - Neck Exam Neck Exam: Full ROM. absent: Meningismus - Respiratory Exam Respiratory Exam: + rhonchi , mild wheezing on High Flow Oxygen - Cardiovascular Exam Cardiovascular Exam: REGULAR RHYTHM, +S1, +S2. tachycardic - GI/Abdominal Exam GI & Abdominal Exam: Soft, Normal Bowel Sounds. absent: Tenderness - Extremities Exam Extremities Exam: Normal Capillary Refill, bipedal Pedal Edema Additional comments: abrasions LE right shoulder deformity RUE edema - Back Exam Back Exam: absent: CVA tenderness (L), CVA tenderness (R) - Neurological Exam Neurological Exam: Alert, Awake, CN II-XII Intact, Oriented x3 - Psychiatric Exam Psychiatric exam: Normal Affect, Normal Mood - Skin Skin Exam: Dry, Normal Color, Warm Assessment and Plan (1) Acute and chronic respiratory failure with hypercapnia Status: Acute (2) Osteomyelitis of mandible Status: Acute (3) Hypothyroidism Status: Acute (4) Acute exacerbation of chronic obstructive pulmonary disease (COPD) Status: Acute (5) HTN (hypertension) Status: Chronic (6) Hx of breast cancer Status: Chronic (7) Acute exacerbation of CHF (congestive heart failure) Status: Acute (8) Hypokalemia Status: Acute (9) Facial abscess Status: Acute (10) DVT prophylaxis Status: Acute - Assessment and Plan (Free Text) Assessment: 66 y/o female PMH COPD, bilateral breast CA s/p chemo and radiation 8 years ago with bone mets to shoulder (s/p humeral resection), HTN, Hyperthyroidism presented with 2 week history of worsening bilateral lower extremity swelling and weakness, unable to get herself up to her walker. Patient has mild dyspnea at baseline. She also came with a large right facial swelling for almost 2 weeks and was taking PO antibiotics prescribed by her dentist. Patient was admitted for generalized weakness , Hyponatremia and Facial abscess. She was started on IV antibiotics for facial abscess and Lasix IV with fluid restriction for LE edema. Maxillofacial Ct showed possible abscess accumulation. Evaluated by Oromaxillofacial surgeon and underwent Incision and drainage of abscess. Bone scan showed possible osteomyelitis . ID recommends 4-6 wks IV abx treatment. During this hospitalization noted to have increased dyspnea at rest and more so with minimal activity, decreased air entry bilaterally and increased work of breathing. She was started on high flow O2, Higher doses of theophylline and IV hydrocortisone. CTA chest and LE doppler showed no DVT , except right cephallic cherelle thrombosis . She was transferred to ICU for close monitoring for tachypnea and tachycardia. At present, still on High Flow Oxygen 25 LMP FIO2 30 % with good oxygenation but still with episodes of respiratory distress and tachycardia. Episodes of pressure like chest pain relieved with morphine and nitro.. Right Facial abscess is still present 1. Acute on Chronic Respiratory Insufficiency with hypercapnea Most likely secondary to COPD exacerbation with acute bronchitis and CHF exacerbation Continue high flow O2 via NC 25 LMP on FIO2 30 % CT chest showed no PE and improved bilateral pleural effusion after diuresis LE doppler showed no DVT decreased Aldactone to 25 mg QD bec of hypokalemia Continue Duonebs Continue Chest PT , Coughalator and Acapella therapy Dr. Benz following patient closely Discontinued ASA, coreg , Theophylline and started Daliresp taper Hydrocortisone to 100 mg IV daily on very low dose Xanax 0.25 bid prn as this seem to help when pt gets very anxious, tachypenic and tachycardic 2. Chest Pain , prob sec to Annxiety, ACS ruled out with pressure like chest pain on and off cardiology consult with Dr. Luu appreciated Trop -- negative and EKG showed no ST-T wave changes Most likely atypical chest pain related to anxiety , hypokalemia and COPD. There is no signs of ischemia 3. Facial abscess with mandibular Osteomyelitis s/p drainage of abscess Maxillofacial Ct showed :Large enhancing wall collection seen around the mid and upper right mandibular ramus and mandibular neck extending anteriorly and seen medial and lateral to the right zygomatic arch. This collection contains foci of air. The density and the appearance of this collection suggestive of abscess formation. The collection is seen anterior to the right parotid gland and extending medially to the posterior right oral cavity. [id number] right maxillary sinus mucosal thickening and small air-fluid level. Partial opacification of both mastoids suggestive of mastoiditis. ID on consult: Dr Obrien. Recommended IV abx 6 wks total ( # Day ) OMFS Dr. Ambrose consulted and patient underwent Incision and drainage on 06/09 pathology report showed inflammatory cells, no malignancy Nuclear Bone Scan suggestive of osteomyelitis Tunneled central line placed for senior living IV antibiotics- this will need to be d/c by IR after IV abx treatment is completed ( as discussed with Dr Gunter - pt was informed of need to see IR after abx tx) Antibiotics changed : now on Zyvox , Zosyn, Meropenem and Fluconazole Pt underwent drainage of facial collection by IR on 06/24 and 24 ml yellow fluid obtained- c/s : VRE and [facility] ENT eval with Dr. Priest appreciated. He recommends maxillofacial evaluation for dental abscess , not parotitis. Dr Ambrose re consulted -waiting re eval Patient may need drainage of abscess again 4. Bilateral LE edema sec to CHF exacerbation with diastolic dysfxn still with LE edema bilateral 2 + diuresing well with negative balance I/O 1680/3600 Echo showed EF 40-45 % and dilated RV continue fluid restriction Promote ambulation 5.Hypokalemia multifactorial diuretic induced , Albuterol, Hypothyroidism and GI loss ( had 5 BM ) off Lasix Continue KCl runs and PO replacement K 2.3 today Nephro consul appreciated CT of abd showed no adrenal mass 6 .Hyponatremia, resolved most likely secondary to solute depletion and infection Continue fluid restriction 7.Hx breast ca, bilateral stable, s/p bilateral mastectomy continue arimidex 8. Tachycardia -- multifactorial Hx of HTN was on verapamil at home ( 80mg tid) but decreased dose due to low BP and now discontinued as may contribute to leg edema started low dose Coreg but discontinued due to COPD continue monitoring 9. Hypothyroidism patient has history of hyperthyroidism and was on Methimazole but had developed hypothyroidism so Methimazole was d/c and she was started on Po levothyroxine- At present TSH 0.03 so Methimazole 5 mg po Qd restarted as discussed with Dr Vu d/c levothyroxine 10. Anemia, chronic dis monitor anemia work up showed depleted iron stores Venofer IV given s/p 2 units PRBC transfusion 11. Right cephalic vein thrombosis ( superficial vein) on lovenox 12.DVT ppx lovenox
[2016-07-03] MEDS: Linezolid 600 mg in D5W 300 ml 300 ML IVPB SCH ×2 (10:22→20:50)
--- NOTE | 2016-07-03 10:58 | PN ---
DATE: 07/03/2016 CRITICAL CARE PROGRESS NOTE LOCATION: The patient in ICU, bed 434. TIME SPENT: 35 minutes. The patient is seen and evaluated at the bedside. A 66-year-old female with history significant for hypertension, hypothyroidism, chronic obstructive p ulmonary disease, congestive heart failure, bilateral breast CA, status post mastectomy followed by barbara dickerson, status post bilateral shoulder surgery admitted with right-sided swelling of the face treat ed for osteomyelitis, noted to have hypokalemia, persistent diarrhea overnight, normotensive, afebril e. Telemetry is sinus rhythm. This morning, alert, awake, follows commands appropriately. Denies shortness of breath at rest. No palpitation or chest pain. No abdominal discomfort. Noted to have 4-5 bowel movements., non-bloody, watery. No swelling of the lower extremities. PHYSICAL EXAMINATION: VITAL SIGNS: Temperature 98.4, heart rate 110-115, blood pressure 112/69, mean arterial pressure 83, respiratory rate 20 thoracoabdominal, saturating 98%. Intake 1680, output 3600, negative balance 19 20. Weight 115 pounds. HEAD, EYES, EARS, NOSE, AND THROAT: Pupils are reactive. Conjunctivae are pale. Sclerae are white. NECK: Supple, fluctuating mass noted right cheek, but no discharge. CHEST: Bilateral breath sounds. Clear to auscultation. HEART: Rhythm regular. S1, S2 normal. ABDOMEN: Bowel sounds present, soft, nontender. EXTREMITIES: 1-2+ edema. Right upper extremity with chronic lymphedema. No peripheral digital cyan osis. No palpable cord. Dorsalis pedis plus reduced in intensity. NEUROLOGIC: Oriented to name, place, and time. No focal motor deficit. No cranial nerve deficit. SKIN: Ecchymosis noted on the left arm, less on the right. CURRENT MEDICATIONS: Tylenol 650 q. 6 p.r.n., Mucomyst 2 mL via nebulizer twice daily, DuoNeb 3 mL q . 4 p.r.n., q. 6 scheduled, anastrozole 1 mg p.o. daily, baclofen 10 mg p.o. bedtime, Lovenox 40 subQ daily, Diflucan 200 mg IV daily, Neurontin 600 mg p.o. q. 8, Mucinex 600 mg p.o. q. 12, hydrocortiso ne 100 mg IV daily, Bacid (lactobacillus) 1 capsule p.o. twice daily, Zyvox 600 mg IV q. 12, loperami de 2 mg p.o. q. 12, meropenem 1 gram IV q. 12, methimazole 5 mg p.o. twice daily, nitroglycerin 2% oi ntment 1 inch topically q. 6 hours, Protonix 40 mg daily, Zosyn 3.375 g IV q. 8, roflumilast 500 mg p .o. daily, spironolactone 25 mg daily, zolpidem 5 mg p.o. at bedtime. ASSESSMENT: 1. Acute hypercapnic hypoxic respiratory failure, history of chronic obstructive pulmonary disease/e mphysema ____ high-flow oxygen on 2 liters nasal cannula, saturating over 94%. 2. Severe hypokalemia, recurrent on spironolactone and potassium supplement. 3. Hypothyroidism, on methimazole. Appreciate endocrinology input. 4. Right mandibular osteomyelitis/facial abscess on Zosyn and Diflucan. May need drainage if does n ot improve. 5. Status post bilateral mastectomy, right upper lymphedema, stable. Severe hypoalbuminemia. Trisha nue potassium supplement. Continue deep venous thrombosis and gastrointestinal prophylaxis. Current antibiotic. Infectious disease followup, renal followup for hyperkalemia. Kuldip Jenkins MD cc: [id number] TT: 07/03/2016 10:57:52 Confirmation # [id number] Dictation # [id number] [place]
--- NOTE | 2016-07-03 12:31 | CP.PCM.PN ---
Subjective - Date & Time of Evaluation Date of Evaluation: 07/03/16 Time of Evaluation: 12:27 - Subjective Subjective: ID NOTE NO REAL IMPROVEMENT C LESION IF STATUS REMAINS SAME,MIGHT CONSIDER EVALUATION AT [facility] THEY HAVE ORAL/FACIAL /MAXILLARY SURGERY PROGRAM Objective - Vital Signs/Intake and Output Vital Signs (last 24 hours): Temp Pulse Resp BP Pulse Ox 97.4 F L 112 H 17 112/79 99 07/03/16 12:00 07/03/16 12:00 07/03/16 12:00 07/03/16 12:00 07/03/16 12:00 Intake and Output: 07/03/16 07/03/16 06:59 18:59 Intake Total 732 620 Output Total 300 Balance 432 620 - Medications Medications: Current Medications Acetaminophen (Tylenol 325mg Tab) 650 mg PO Q6 PRN PRN Reason: Pain, moderate (4-7) Last Admin: 06/28/16 01:46 Dose: 650 mg Acetylcysteine (Mucomyst 10% 4ml) 2 ml IH RBID [facility] Last Admin: 07/02/16 08:00 Dose: 2 ml Albuterol Sulfate (Albuterol 0.083% Inhal Aby (2.5 Mg/3 Ml) Ud) 2.5 mg INH RQ4 PRN PRN Reason: Shortness of Breath Last Admin: 07/01/16 07:45 Dose: 2.5 mg Albuterol/Ipratropium (Duoneb 3 Mg/0.5 Mg (3 Ml) Ud) 3 ml INH RQID [facility] Last Admin: 07/03/16 11:26 Dose: 3 ml Alprazolam (Xanax) 0.25 mg PO Q12 PRN PRN Reason: Anxiety Stop: 07/10/16 10:26 Last Admin: 07/03/16 10:40 Dose: 0.25 mg Anastrozole (Arimidex 1 Mg Tab) 1 mg PO DAILY [facility] Last Admin: 07/03/16 08:27 Dose: 1 mg Baclofen (Lioresal) 10 mg PO HS [facility] Last Admin: 07/02/16 21:12 Dose: 10 mg Enoxaparin Sodium (Lovenox) 40 mg SC DAILY [facility] PRN Reason: Protocol Last Admin: 07/03/16 08:12 Dose: 40 mg Gabapentin (Neurontin) 600 mg PO Q8H [facility] Last Admin: 07/03/16 05:42 Dose: 600 mg Guaifenesin (Mucinex La) 600 mg PO Q12 [facility] Last Admin: 07/03/16 08:13 Dose: 600 mg Meropenem 1 gm/ Sodium (Chloride) 100 mls @ 100 mls/hr IVPB Q12@0800,2000 [facility] Last Admin: 07/03/16 08:54 Dose: 100 mls/hr Piperacillin Sod/Tazobactam (Sod 3.375 gm/ Sodium Chloride) 100 mls @ 100 mls/ hr IVPB Q8 [facility] Last Admin: 07/03/16 09:30 Dose: 100 mls/hr Linezolid (Zyvox 600mg/300ml D5w) 300 mls @ 300 mls/hr IVPB Q12 [facility] Last Admin: 07/03/16 10:22 Dose: 300 mls/hr Fluconazole (Diflucan Iv 200 Mg/100 Ml Ns) 100 mls @ 100 mls/hr IVPB DAILY [facility] Last Admin: 07/03/16 08:07 Dose: 100 mls/hr Hydrocortisone Sodium Succinate 100 mg/ Sodium Chloride 100 mls @ 100 mls/hr IV DAILY [facility] Last Admin: 07/02/16 13:32 Dose: 100 mls/hr Lactobacillus Acidophilus (Bacid Acidophilus) 1 cap PO BID [facility] Last Admin: 07/03/16 08:12 Dose: 1 cap Loperamide HCl (Imodium) 2 mg PO QID PRN PRN Reason: Loose stools Last Admin: 07/03/16 05:42 Dose: 2 mg Methimazole (Tapazole) 5 mg PO BID [facility] Last Admin: 07/03/16 08:13 Dose: 5 mg Morphine Sulfate (Morphine) 2 mg IVP Q4 PRN PRN Reason: Pain, moderate (4-7) Last Admin: 07/01/16 17:51 Dose: 2 mg Multi-Ingredient Cream (Hydrocerin Cream) 1 applic TOP BID [facility] Last Admin: 07/03/16 09:31 Dose: 1 applic Multivitamins/Minerals (Therapeutic-M Tab) 1 tab PO DAILY [facility] Last Admin: 07/03/16 08:14 Dose: 1 tab Nitroglycerin (Nitro-Bid 2% Oint) 1 in TOP Q6 [facility] Last Admin: 07/03/16 09:30 Dose: 1 in Pantoprazole Sodium (Protonix Ec Tab) 40 mg PO DAILY [facility] Last Admin: 07/03/16 08:11 Dose: 40 mg Roflumilast (Daliresp) 500 mcg PO DAILY [facility] Last Admin: 07/03/16 08:21 Dose: 500 mcg Spironolactone (Aldactone) 25 mg PO DAILY [facility] Last Admin: 07/03/16 08:11 Dose: 25 mg Zolpidem Tartrate (Ambien) 5 mg PO HS PRN PRN Reason: Sleep Last Admin: 07/02/16 22:31 Dose: 5 mg - Labs Labs: 07/03/16 05:50 07/03/16 05:50 PT 11.0 SECONDS (9.6-11.2) 06/09/16 04:10 INR 1.06 (0.92-1.08) 06/09/16 04:10 APTT 27.5 SECONDS (23.3-32.5) 06/03/16 22:33
[2016-07-03] MEDS: Hydrocortisone- 100 MG in Sodium Chloride 0.9% 100 ML IV SCH (13:49)
--- NOTE | 2016-07-03 14:16 | PN ---
DATE: 07/03/2016 LOCATION: Room 434, ICU. SUBJECTIVE: This is a 66-year-old female with recent acute exacerbation of COPD and supervening stefan estive heart failure and is now being followed closely for metabolic management. Her latest chemistr y showed a BUN of 14, sodium 142, potassium 4.4, chloride 100, CO2 33, glucose 85, and creatinine 0.4 . Her latest TSH is 0.03. So at this time, we will continue the Tapazole given as 5 mg p.o. b.i.d. after meals as ordered. We will titrate incrementally as indicated to optimize metabolic control. W nichole will obtain serial chemistries and supplement accordingly as needed. We will also obtain serial th yroid studies and adjust her dose to a higher titration as indicated to optimize metabolic control. Polly Vu MD cc: [id number] TT: 07/03/2016 14:16:36 Confirmation # [id number] Dictation # [id number]
--- NOTE | 2016-07-03 15:32 | RAD ---
HISTORY: chest pain COMPARISON: Chest x-ray performed 07/02/16 TECHNIQUE: Chest, one view. FINDINGS: Right-sided central venous catheter extends to the SVC. LUNGS: Hyperinflation may be seen in the setting of COPD. Increased lucencies within the lung apices may be seen in setting of emphysema. Small bilateral pleural effusions and associated atelectasis or infiltrates. No definite pneumothorax. Please note that chest x-ray has limited sensitivity for the detection of pulmonary masses. CARDIOVASCULAR: Cardiomegaly. Atherosclerotic calcifications of the aorta. OSSEOUS STRUCTURES: Partially imaged cervical fusion hardware. Degenerative changes of the spine. Postsurgical changes of the left humeral head. Deformity and partial resection of the right proximal humerus re-identified. Left AC joint measures approximately 2.2 cm. VISUALIZED UPPER ABDOMEN: Unremarkable. OTHER FINDINGS: Bilateral axillary clips. IMPRESSION: Right-sided central venous catheter extends to the SVC. Findings suggestive of COPD/emphysema. Small bilateral pleural effusions and associated atelectasis or infiltrates. Cardiomegaly. Additional findings as above.
[2016-07-04] MEDS: Piperacillin/Tazobact 3.375 GM in Sodium Chloride 0.9% 100 ML IVPB SCH ×3 (01:15→17:23)
[2016-07-04] MEDS: Nitroglycerin 2% 1GM UD TOP SCH ×4 (04:25→21:27)
[2016-07-04 07:11] LABS: ALKALINE PHOSPHATASE 88 U/L (38-126); ALT/SGPT 39 U/L (9-52); AST/SGOT 19 U/L (14-36); BILIRUBIN,TOTAL 0.5 mg/dl (0.2-1.3); BLOOD UREA NITROGEN 16 mg/dl (7-17); CALCIUM 8.4 mg/dL (8.4-10.2); CARBON DIOXIDE 35 mmol/L (22-30); CHLORIDE 99 mmol/L (98-107); GFR AFRICAN-AMERICAN > 60; GLUCOSE,RANDOM 79 mg/dL (65-105); POTASSIUM 3.1 MMOL/L (3.6-5.0); SODIUM 141 mmol/l (132-148); TOTAL PROTEIN 4.9 G/DL (6.3-8.2)
[2016-07-04] MEDS: Albuterol-Ipratrop 3 mg / 0.5 (3 ml) UD INH SCH ×4 (07:25→19:44)
[2016-07-04 07:46] LABS: THYROID STIMULATING HORMONE 0.25 mIU/ML (0.46-4.68)
[2016-07-04 08:07] LABS: T4 4.81 ug/dl (5.5-11.0)
[2016-07-04] MEDS ORDERED: Potassium Chloride 40 mEq/30 ml LIQ UD PO ONE (08:47)
[2016-07-04] MEDS: Lactobacillus Acidophilus 500 MU Cap PO SCH ×2 (09:00→17:18)
[2016-07-04] MEDS: Hydrocerin CREAM TOP SCH ×3 (09:20→17:20)
[2016-07-04] MEDS: Enoxaparin 40 mg Syringe SC SCH (09:30)
[2016-07-04] MEDS: guaiFENesin 600 mg ER Tab PO SCH ×2 (09:31→20:26)
[2016-07-04] MEDS: Pantoprazole 40 mg EC Tab PO SCH (09:32)
[2016-07-04] MEDS: methIMAzole 5 MG TAB PO SCH ×3 (09:32→17:23)
[2016-07-04] MEDS: Fluconazole IV 200mg/100 ml NS 100 ML IVPB SCH (09:34)
[2016-07-04] MEDS: Meropenem 1 GM in Sodium Chloride 0.9% 100 ML IVPB SCH ×2 (09:34→20:00)
[2016-07-04] MEDS: Hydrocortisone- 100 MG in Sodium Chloride 0.9% 100 ML IV SCH (09:35)
[2016-07-04] MEDS: Multivitamin With Minerals Tab PO SCH (09:36)
[2016-07-04] MEDS: Linezolid 600 mg in D5W 300 ml 300 ML IVPB SCH ×2 (09:37→20:25)
--- NOTE | 2016-07-04 10:20 | CP.PCM.PN ---
Subjective - Date & Time of Evaluation Date of Evaluation: 07/04/16 Time of Evaluation: 09:30 - Subjective Subjective: No fever feels good this morning Facial abscess still the same size, sl less tender her diarrhea is also better denies CP no abd pain Objective - Vital Signs/Intake and Output Vital Signs (last 24 hours): Temp Pulse Resp BP Pulse Ox 98.4 F 109 H 14 122/87 93 L 07/04/16 08:00 07/04/16 08:00 07/04/16 08:00 07/04/16 08:00 07/04/16 08:00 Intake and Output: 07/04/16 07/04/16 06:59 18:59 Intake Total 790 Output Total 500 Balance 290 - Medications Medications: Current Medications Acetaminophen (Tylenol 325mg Tab) 650 mg PO Q6 PRN PRN Reason: Pain, moderate (4-7) Last Admin: 06/28/16 01:46 Dose: 650 mg Acetylcysteine (Mucomyst 10% 4ml) 2 ml IH RBID [facility] Last Admin: 07/02/16 08:00 Dose: 2 ml Albuterol Sulfate (Albuterol 0.083% Inhal Aby (2.5 Mg/3 Ml) Ud) 2.5 mg INH RQ4 PRN PRN Reason: Shortness of Breath Last Admin: 07/01/16 07:45 Dose: 2.5 mg Albuterol/Ipratropium (Duoneb 3 Mg/0.5 Mg (3 Ml) Ud) 3 ml INH RQID [facility] Last Admin: 07/04/16 07:25 Dose: Not Given Alprazolam (Xanax) 0.25 mg PO Q12 PRN PRN Reason: Anxiety Stop: 07/10/16 10:26 Last Admin: 07/03/16 10:40 Dose: 0.25 mg Anastrozole (Arimidex 1 Mg Tab) 1 mg PO DAILY [facility] Last Admin: 07/04/16 09:28 Dose: 1 mg Baclofen (Lioresal) 10 mg PO HS [facility] Last Admin: 07/03/16 21:01 Dose: 10 mg Enoxaparin Sodium (Lovenox) 40 mg SC DAILY [facility] PRN Reason: Protocol Last Admin: 07/04/16 09:30 Dose: 40 mg Gabapentin (Neurontin) 600 mg PO Q8H [facility] Last Admin: 07/04/16 06:02 Dose: 600 mg Guaifenesin (Mucinex La) 600 mg PO Q12 [facility] Last Admin: 07/04/16 09:31 Dose: 600 mg Meropenem 1 gm/ Sodium (Chloride) 100 mls @ 100 mls/hr IVPB Q12@0800,2000 [facility] Last Admin: 07/04/16 09:34 Dose: 100 mls/hr Piperacillin Sod/Tazobactam (Sod 3.375 gm/ Sodium Chloride) 100 mls @ 100 mls/ hr IVPB Q8 [facility] Last Admin: 07/04/16 09:36 Dose: 100 mls/hr Linezolid (Zyvox 600mg/300ml D5w) 300 mls @ 300 mls/hr IVPB Q12 [facility] Last Admin: 07/04/16 09:37 Dose: 300 mls/hr Fluconazole (Diflucan Iv 200 Mg/100 Ml Ns) 100 mls @ 100 mls/hr IVPB DAILY [facility] Last Admin: 07/04/16 09:34 Dose: 100 mls/hr Hydrocortisone Sodium Succinate 100 mg/ Sodium Chloride 100 mls @ 100 mls/hr IV DAILY [facility] Last Admin: 07/04/16 09:35 Dose: 100 mls/hr Lactobacillus Acidophilus (Bacid Acidophilus) 1 cap PO BID [facility] Last Admin: 07/03/16 16:58 Dose: 1 cap Loperamide HCl (Imodium) 2 mg PO QID PRN PRN Reason: Loose stools Last Admin: 07/03/16 16:23 Dose: 2 mg Methimazole (Tapazole) 5 mg PO BID [facility] Last Admin: 07/04/16 09:32 Dose: 5 mg Morphine Sulfate (Morphine) 2 mg IVP Q4 PRN PRN Reason: Pain, moderate (4-7) Last Admin: 07/04/16 09:22 Dose: 2 mg Multi-Ingredient Cream (Hydrocerin Cream) 1 applic TOP BID [facility] Last Admin: 07/03/16 18:03 Dose: Not Given Multivitamins/Minerals (Therapeutic-M Tab) 1 tab PO DAILY [facility] Last Admin: 07/04/16 09:36 Dose: 1 tab Nitroglycerin (Nitro-Bid 2% Oint) 1 in TOP Q6 [facility] Last Admin: 07/04/16 09:31 Dose: 1 in Pantoprazole Sodium (Protonix Ec Tab) 40 mg PO DAILY [facility] Last Admin: 07/04/16 09:32 Dose: 40 mg Roflumilast (Daliresp) 500 mcg PO DAILY [facility] Last Admin: 07/04/16 09:30 Dose: 500 mcg Spironolactone (Aldactone) 25 mg PO DAILY [facility] Last Admin: 07/04/16 09:27 Dose: 25 mg Zolpidem Tartrate (Ambien) 5 mg PO HS PRN PRN Reason: Sleep Last Admin: 07/02/16 22:31 Dose: 5 mg - Labs Labs: 07/03/16 05:50 07/04/16 04:00 PT 11.0 SECONDS (9.6-11.2) 06/09/16 04:10 INR 1.06 (0.92-1.08) 06/09/16 04:10 APTT 27.5 SECONDS (23.3-32.5) 06/03/16 22:33 Assessment and Plan (1) Acute and chronic respiratory failure with hypercapnia Status: Acute (2) Osteomyelitis of mandible Status: Acute (3) Hypothyroidism Status: Acute (4) Acute exacerbation of chronic obstructive pulmonary disease (COPD) Status: Acute (5) HTN (hypertension) Status: Chronic (6) Hx of breast cancer Status: Chronic (7) Acute exacerbation of CHF (congestive heart failure) Status: Acute (8) Hypokalemia Status: Acute (9) Facial abscess Status: Acute (10) DVT prophylaxis Status: Acute - Assessment and Plan (Free Text) Assessment: - Constitutional Appears: Chronically Ill - Head Exam Head Exam: NORMAL INSPECTION, NORMOCEPHALIC - Eye Exam Eye Exam: EOMI, Normal appearance Pupil Exam: NORMAL ACCOMMODATION - ENT Exam ENT Exam: Mucous Membranes Dry, Normal External Ear Exam Additional comments: right facial swelling, + tenderness to touch - Neck Exam Neck Exam: Full ROM. absent: Meningismus - Respiratory Exam Respiratory Exam: + rhonchi , mild wheezing on High Flow Oxygen - Cardiovascular Exam Cardiovascular Exam: REGULAR RHYTHM, +S1, +S2. tachycardic - GI/Abdominal Exam GI & Abdominal Exam: Soft, Normal Bowel Sounds. absent: Tenderness - Extremities Exam Extremities Exam: Normal Capillary Refill, bipedal Pedal Edema Additional comments: abrasions LE right shoulder deformity RUE edema - Back Exam Back Exam: absent: CVA tenderness (L), CVA tenderness (R) - Neurological Exam Neurological Exam: Alert, Awake, CN II-XII Intact, Oriented x3 - Psychiatric Exam Psychiatric exam: Normal Affect, Normal Mood - Skin Skin Exam: Dry, Normal Color, Warm - Assessment and Plan (Free Text) Assessment: 66 y/o female PMH COPD, bilateral breast CA s/p chemo and radiation 8 years ago with bone mets to shoulder (s/p humeral resection), HTN, Hyperthyroidism presented with 2 week history of worsening bilateral lower extremity swelling and weakness, unable to get herself up to her walker. Patient has mild dyspnea at baseline. She also came with a large right facial swelling for almost 2 weeks and was taking PO antibiotics prescribed by her dentist. Patient was admitted for generalized weakness , Hyponatremia and Facial abscess. She was started on IV antibiotics for facial abscess and Lasix IV with fluid restriction for LE edema. Maxillofacial Ct showed possible abscess accumulation. Evaluated by Oromaxillofacial surgeon and underwent Incision and drainage of abscess. Bone scan showed possible osteomyelitis . ID recommends 4-6 wks IV abx treatment. During this hospitalization noted to have increased dyspnea at rest and more so with minimal activity, decreased air entry bilaterally and increased work of breathing. She was started on high flow O2, Higher doses of theophylline and IV hydrocortisone. CTA chest and LE doppler showed no DVT , except right cephallic cherelle thrombosis . She was transferred to ICU for close monitoring for tachypnea and tachycardia. At present, still on High Flow Oxygen 20 LMP FIO2 30 % with good oxygenation but still with episodes of respiratory distress and tachycardia. 1. Acute on Chronic Respiratory Insufficiency with hypercapnea Most likely secondary to COPD exacerbation with acute bronchitis and CHF exacerbation Continue high flow O2 via NC 25 LMP on FIO2 30 % CT chest showed no PE and improved bilateral pleural effusion after diuresis LE doppler showed no DVT decreased Aldactone to 25 mg QD bec of hypokalemia Continue Duonebs Continue Chest PT , Coughalator and Acapella therapy Dr. Benz following patient closely Discontinued ASA, coreg , Theophylline and started Daliresp taper Hydrocortisone to 100 mg IV daily on very low dose Xanax 0.25 bid prn as this seem to help when pt gets very anxious, tachypenic and tachycardic 2. Chest Pain , prob sec to Annxiety, ACS ruled out with pressure like chest pain on and off cardiology consult with Dr. Luu appreciated Trop -- negative and EKG showed no ST-T wave changes Most likely atypical chest pain related to anxiety , hypokalemia and COPD. There is no signs of ischemia 3. Facial abscess with mandibular Osteomyelitis s/p drainage of abscess Maxillofacial Ct showed :Large enhancing wall collection seen around the mid and upper right mandibular ramus and mandibular neck extending anteriorly and seen medial and lateral to the right zygomatic arch. This collection contains foci of air. The density and the appearance of this collection suggestive of abscess formation. The collection is seen anterior to the right parotid gland and extending medially to the posterior right oral cavity. [id number] right maxillary sinus mucosal thickening and small air-fluid level. Partial opacification of both mastoids suggestive of mastoiditis. ID on consult: Dr Obrien. Recommended IV abx 6 wks total ( # ) OMFS Dr. Ambrose consulted and patient underwent Incision and drainage on 06/09 pathology report showed inflammatory cells, no malignancy Nuclear Bone Scan suggestive of osteomyelitis Tunneled central line placed for long term care pharmacist IV antibiotics- this will need to be d/c by IR after IV abx treatment is completed ( as discussed with Dr Gunter - pt was informed of need to see IR after abx tx) Antibiotics changed : now on Zyvox , Zosyn, Meropenem and Fluconazole Pt underwent drainage of facial collection by IR on 06/24 and 24 ml yellow fluid obtained- c/s : VRE and [facility] ENT eval with Dr. Priest appreciated. He recommends maxillofacial evaluation for dental abscess , not parotitis. Dr Ambrose re consulted -awaiting re eval Patient may need drainage of abscess again 4. Bilateral LE edema sec to CHF exacerbation with diastolic dysfxn still with LE edema bilateral 2 + diuresing well with negative balance I/O 1680/3600 Echo showed EF 40-45 % and dilated RV continue fluid restriction Promote ambulation 5. Hypokalemia multifactorial diuretic induced , Albuterol, Hypothyroidism and GI loss ( had 5 BM ) off Lasix Continue KCl runs and PO replacement K 2.3 today Nephro consul appreciated CT of abd showed no adrenal mass 6 .Hyponatremia, resolved most likely secondary to solute depletion and infection Continue fluid restriction 7.Hx breast ca, bilateral stable, s/p bilateral mastectomy continue arimidex 8. Tachycardia -- multifactorial Hx of HTN was on verapamil at home ( 80mg tid) but decreased dose due to low BP and now discontinued as may contribute to leg edema started low dose Coreg but discontinued due to COPD continue monitoring 9. Hypothyroidism patient has history of hyperthyroidism and was on Methimazole but had developed hypothyroidism so Methimazole was d/c and she was started on Po levothyroxine- At present TSH 0.25 so Methimazole restarted as discussed with Dr Vu d/c levothyroxine 10. Anemia, chronic dis monitor anemia work up showed depleted iron stores Venofer IV given s/p 2 units PRBC transfusion 11. Right cephalic vein thrombosis ( superficial vein) on lovenox 12.DVT ppx lovenox
--- NOTE | 2016-07-04 12:36 | PN ---
DATE: 07/04/2016 LOCATION: The patient in ICU, bed 434. TIME SPENT: 35 minutes. The patient is seen and evaluated at the bedside. Events since admission reviewed. A 66-year-old fe male with hypertension, hypothyroidism, chronic obstructive pulmonary disease, congestive heart failu re, bilateral breast CA, status post mastectomy, followed by radiation, status post bilateral shoulde r surgery, admitted with right-sided swelling of the face, being treated for osteomyelitis with facia l abscess. Overnight afebrile, normotensive. Telemetry, sinus rhythm. Reduced sleep secondary to i ntermittent pain on the right lateral chest wall, responding to morphine. This morning, alert, awake , follows commands appropriately, complaining of pain at the same site on the right lateral chest wal l, worsened with movement of right shoulder, mild shortness of breath. Denies abdominal pain, diarrh ea or dysuria. No swelling of the lower extremities. PHYSICAL EXAMINATION: VITAL SIGNS: Temperature 98.3, heart rate 101-109, regular, blood pressure 120-125/81-87, respirator y rate 14, oxygen saturation 93% on FIO2 30% 2 liters nasal cannula. Intake 2031, output 1250, posit eda balance 782, oral intake 1950, Gutierrez 1250. HEENT: Pupils are reactive. Conjunctivae pale. Sclerae are white. NECK: Supple, fluctuating mass at the right cheek. No discharge. CHEST: Bilateral breath sounds, scattered rhonchi. HEART: Rhythm regular. S1, S2 normal. No audible murmur or rub. ABDOMEN: Bowel sounds present, soft, nontender. EXTREMITIES: 1-2+ edema, right upper extremity with chronic lymphedema. No peripheral digital cyano sis, no palpable cord. Dorsalis pedis present but reduced in intensity. NEUROLOGIC: Oriented to name, place and time. No motor deficit. No cranial nerve deficit. SKIN: Ecchymosis noted on the left arm, less on the right. CURRENT MEDICATIONS: Tylenol 650 q. 6 p.r.n., albuterol via nebulizer q. 4 hours p.r.n., Mucomyst 2 mL via nebulizer twice daily, DuoNeb 3 mL q. 4, anastrozole 1 mg p.o. daily, baclofen 10 mg p.o. at b edtime, Lovenox 40 subQ daily, Diflucan 200 mg IV daily, Neurontin 600 mg p.o. q. 8, Mucinex 600 mg p .o. q. 12, hydrocortisone 100 mg IV daily, lactobacillus 1 capsule twice daily, Zyvox 600 mg IV q. 12 , Loperamide 2 mg p.o. q. 12, meropenem 1 gram IV q. 12, methimazole 5 mg p.o. twice daily, nitroglyc ti 2% ointment 1 inch topically q. 6 hours, Protonix 40 daily, Zosyn 3.375 g IV q. 8, roflumilast 5 00 mg p.o. daily, spironolactone 25 mg daily, zolpidem 5 mg p.o. daily. IMPRESSION AND PLAN: Acute hypercapnic hypoxic respiratory failure, history of chronic obstructive p ulmonary disease with emphysema on high flow oxygen, saturating over 94%. Continue bronchodilator an d systemic steroids. Severe hypokalemia on spironolactone and potassium supplement. Hyperthyroidism , on methimazole. Appreciate endocrinology input. Continue methimazole. Right mandibular osteomyel itis/facial abscess. Currently on Zosyn and Diflucan. Follow the clinical course. If this does not respond, may need surgical evaluation and drainage. Status post bilateral mastectomy, right upper l ymphedema, stable, severe hypoalbuminemia secondary to malnutrition. Continue protein supplement, de ep venous thrombosis and gastrointestinal prophylaxis. Right lateral chest wall pain, suspected osse ous involvement, previous EKG, troponins were negative. Unlikely of cardiac origin. Use morphine as needed to reduce the discomfort. Kuldip Jenkins MD cc: [id number] TT: 07/04/2016 12:36:16 Confirmation # [id number] Dictation # [id number] rafael
--- NOTE | 2016-07-04 15:37 | PN ---
DATE: 07/04/2016 ICU, room 434 This is a 66-year-old female with recent uncontrolled and overt hyperthyroidism, currently on medical therapy as tolerated and given and is now being followed closely for metabolic management. Her repeat thyroid studies showed a T4 of 4.81 with a TSH of 0.25 and a free T4 of 0.73. The repeat chemistry showed a BUN of 16, sodium 141, potassium 3.1, chloride 99, CO2 35, glucose 79 and creatini ne 0.4. So at this time, we will continue the same medical therapy given as Tapazole at 5 mg p.o. b.i.d. afte r meals as ordered. We will titrate incrementally as indicated to optimize metabolic control. We wi ll follow and advise accordingly. Polly Vu MD cc: [id number] TT: 07/04/2016 15:36:31 Confirmation # [id number] Dictation # [id number] en
[2016-07-04] MEDS ORDERED: Oxycodone/Acetaminophen 5/325 mg Tab PO PRN (18:48)
[2016-07-05] MEDS: Piperacillin/Tazobact 3.375 GM in Sodium Chloride 0.9% 100 ML IVPB SCH ×3 (00:09→16:04)
[2016-07-05] MEDS: Nitroglycerin 2% 1GM UD TOP SCH ×4 (04:00→22:17)
[2016-07-05 05:22] LABS: BLOOD UREA NITROGEN 16 mg/dl (7-17); CARBON DIOXIDE 36 mmol/L (22-30); CHLORIDE 98 mmol/L (98-107); GFR AFRICAN-AMERICAN > 60; GLUCOSE,RANDOM 86 mg/dL (65-105); POTASSIUM 2.9 MMOL/L (3.6-5.0); SODIUM 141 mmol/l (132-148)
[2016-07-05] MEDS: Meropenem 1 GM in Sodium Chloride 0.9% 100 ML IVPB SCH ×2 (07:17→20:23)
[2016-07-05] MEDS: Hydrocortisone- 100 MG in Sodium Chloride 0.9% 100 ML IV SCH (08:14)
[2016-07-05] MEDS: methIMAzole 5 MG TAB PO SCH ×2 (08:16→16:07)
[2016-07-05] MEDS: guaiFENesin 600 mg ER Tab PO SCH ×2 (08:16→20:40)
[2016-07-05] MEDS: Pantoprazole 40 mg EC Tab PO SCH (08:17)
[2016-07-05] MEDS: Multivitamin With Minerals Tab PO SCH (08:17)
[2016-07-05] MEDS: Enoxaparin 40 mg Syringe SC SCH (08:19)
[2016-07-05] MEDS: Lactobacillus Acidophilus 500 MU Cap PO SCH ×2 (08:26→16:05)
[2016-07-05] MEDS: Hydrocerin CREAM TOP SCH ×2 (08:27→16:21)
[2016-07-05] MEDS: Fluconazole IV 200mg/100 ml NS 100 ML IVPB SCH (08:27)
[2016-07-05] MEDS: Linezolid 600 mg in D5W 300 ml 300 ML IVPB SCH ×2 (08:46→20:30)
--- NOTE | 2016-07-05 09:06 | CP.PCM.PN ---
Subjective - Date & Time of Evaluation Date of Evaluation: 07/05/16 Time of Evaluation: 08:55 - Subjective Subjective: Interim events reviewed. Labs and vital signs reviewed. Medication administration reviewed. Case discussed with phytochemistry professor. Size of facial swelling appears increased although less tender. Still fluctuant, but less so, with larger area of firmness on palpation. No superficial erythema or increased warmth. Still with a congested but non-productive cough, but stronger. Breath sounds are diminished bilaterally with only few rhonchi and occasional rales in the lower lobes. No audible wheezing or bronchial breathing. Heart sounds are distant, regular, still tachy at 100BPM. Dependant edema is still present w/o cyanosis. Last chest x-ray shows bi-basal effusions and parenchymal densities (more pronounced retrocardiac). Repeat CT (maxillofacial) requested. Hydrocortisone reduced to 50MG daily. Continue antibiotic and aerosol therapy. Feel drainage of abscess may be necessary. Supplemental potassium as needed. Objective - Vital Signs/Intake and Output Vital Signs (last 24 hours): Temp Pulse Resp BP Pulse Ox 97.4 F L 92 H 18 108/76 100 07/05/16 07:54 07/05/16 07:54 07/05/16 08:46 07/05/16 07:54 07/05/16 07:54 Intake and Output: 07/04/16 07/05/16 23:59 11:59 Intake Total 520 250 Output Total 400 Balance 520 -150 - Medications Medications: Current Medications Acetaminophen (Tylenol 325mg Tab) 650 mg PO Q6 PRN PRN Reason: Pain, moderate (4-7) Last Admin: 06/28/16 01:46 Dose: 650 mg Acetylcysteine (Mucomyst 10% 4ml) 2 ml IH RBID [facility] Last Admin: 07/02/16 08:00 Dose: 2 ml Albuterol Sulfate (Albuterol 0.083% Inhal Aby (2.5 Mg/3 Ml) Ud) 2.5 mg INH RQ4 PRN PRN Reason: Shortness of Breath Last Admin: 07/01/16 07:45 Dose: 2.5 mg Albuterol/Ipratropium (Duoneb 3 Mg/0.5 Mg (3 Ml) Ud) 3 ml INH RQID [facility] Last Admin: 07/04/16 19:44 Dose: 3 ml Alprazolam (Xanax) 0.25 mg PO Q12 PRN PRN Reason: Anxiety Stop: 07/10/16 10:26 Last Admin: 07/04/16 21:34 Dose: 0.25 mg Anastrozole (Arimidex 1 Mg Tab) 1 mg PO DAILY [facility] Last Admin: 07/05/16 08:19 Dose: 1 mg Baclofen (Lioresal) 10 mg PO HS [facility] Last Admin: 07/04/16 21:28 Dose: 10 mg Enoxaparin Sodium (Lovenox) 40 mg SC DAILY [facility] PRN Reason: Protocol Last Admin: 07/05/16 08:19 Dose: 40 mg Gabapentin (Neurontin) 600 mg PO Q8H [facility] Last Admin: 07/05/16 05:34 Dose: 600 mg Guaifenesin (Mucinex La) 600 mg PO Q12 [facility] Last Admin: 07/05/16 08:16 Dose: 600 mg Meropenem 1 gm/ Sodium (Chloride) 100 mls @ 100 mls/hr IVPB Q12@0800,2000 [facility] Last Admin: 07/05/16 07:17 Dose: 100 mls/hr Piperacillin Sod/Tazobactam (Sod 3.375 gm/ Sodium Chloride) 100 mls @ 100 mls/ hr IVPB Q8 [facility] Last Admin: 07/05/16 08:47 Dose: 100 mls/hr Linezolid (Zyvox 600mg/300ml D5w) 300 mls @ 300 mls/hr IVPB Q12 [facility] Last Admin: 07/05/16 08:46 Dose: 300 mls/hr Fluconazole (Diflucan Iv 200 Mg/100 Ml Ns) 100 mls @ 100 mls/hr IVPB DAILY [facility] Last Admin: 07/05/16 08:27 Dose: 100 mls/hr Hydrocortisone Sodium Succinate 50 mg/ Sodium Chloride 100 mls @ 100 mls/hr IV DAILY [facility] Lactobacillus Acidophilus (Bacid Acidophilus) 1 cap PO BID [facility] Last Admin: 07/05/16 08:26 Dose: 1 cap Loperamide HCl (Imodium) 2 mg PO QID PRN PRN Reason: Loose stools Last Admin: 07/03/16 16:23 Dose: 2 mg Methimazole (Tapazole) 5 mg PO BID [facility] Last Admin: 07/05/16 08:16 Dose: 5 mg Morphine Sulfate (Morphine) 2 mg IVP Q4 PRN PRN Reason: Pain, moderate (4-7) Last Admin: 07/04/16 17:14 Dose: 2 mg Multi-Ingredient Cream (Hydrocerin Cream) 1 applic TOP BID [facility] Last Admin: 07/05/16 08:27 Dose: 1 applic Multivitamins/Minerals (Therapeutic-M Tab) 1 tab PO DAILY [facility] Last Admin: 07/05/16 08:17 Dose: 1 tab Nitroglycerin (Nitro-Bid 2% Oint) 1 in TOP Q6 [facility] Last Admin: 07/05/16 04:00 Dose: 1 in Oxycodone/Acetaminophen (Percocet 5/325 Mg Tab) 1 tab PO Q6 PRN PRN Reason: Pain, moderate (4-7) Stop: 07/07/16 18:49 Last Admin: 07/04/16 18:56 Dose: 1 tab Pantoprazole Sodium (Protonix Ec Tab) 40 mg PO DAILY [facility] Last Admin: 07/05/16 08:17 Dose: 40 mg Roflumilast (Daliresp) 500 mcg PO DAILY [facility] Last Admin: 07/05/16 08:17 Dose: 500 mcg Spironolactone (Aldactone) 25 mg PO DAILY [facility] Last Admin: 07/05/16 08:17 Dose: 25 mg Zolpidem Tartrate (Ambien) 5 mg PO HS PRN PRN Reason: Sleep Last Admin: 07/02/16 22:31 Dose: 5 mg - Labs Labs: 07/03/16 05:50 07/05/16 04:40 PT 11.0 SECONDS (9.6-11.2) 06/09/16 04:10 INR 1.06 (0.92-1.08) 06/09/16 04:10 APTT 27.5 SECONDS (23.3-32.5) 06/03/16 22:33 Assessment and Plan (1) Acute bronchitis with chronic obstructive pulmonary disease (COPD) Status: Acute (2) Hyperthyroidism Status: Chronic (3) Abscess Status: Acute
[2016-07-05] MEDS: Acetylcysteine 10% 4 ML IH SCH (09:08)
[2016-07-05] MEDS: Albuterol-Ipratrop 3 mg / 0.5 (3 ml) UD INH SCH ×4 (09:09→20:30)
[2016-07-05] MEDS: Hydrocortisone- 50 MG in Sodium Chloride 0.9% 100 ML IV SCH (09:24)
--- NOTE | 2016-07-05 09:38 | CARD ---
APPROVED REPORT EKG Measurement Heart [id number] <Conclusion> Sinus tachycardia with occasional premature ventricular complexes Possible Left atrial enlargement Poor R wave progression V1 to V4 Abnormal ECG
--- NOTE | 2016-07-05 10:37 | CP.CCUPN ---
CCU Subjective - Physician Review Events Since Last Encounter (Free Text): 07/05/16 16:49 The Patient was seen and examined at the bedside, Medical records reviewed, all clinical/lab/hemodynamic/radiographic data were reviewed and management issues were discussed and formulated, 66 Y/O F with PMHx of HTN, History of Hyperthyroidism (on Methimazole), H/O Hypothyroidism, severe COPD, Gall Bladder Disease and bilateral breast Cancer with bone mets to shoulder (s/p humerus resection, Humeral prosthesis placement and removal) S/p chemo/XRT 8 years ago Who initially presented to the Emergency department on 06/03 with complaints of bilateral leg swelling and weakness. x2 week. 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 06/18, Patient was transferred from Telemetry unit to ICU for close monitoring due to worsening respiratory status, more dyspnea and increased work of breathing despite being started on HFNC at FIO2 of 28% oxygen and 35 LPM flow Patient currently managed with Diuresis, IV Zosyn, Zyvox (added for VRE from facial mass), Diflucan and Meropenem Patient awake, oriented x 3, slightly more Comfortable, However still requiring HFNC with less FIO2 No CP, Less SOB, no fever/chills On O2 supplement with High flow at FIO2 of 25% oxygen and 25 LPM flow Off BIPAP , no pressors Afebrile 07/05/16 16:53 Discussed with OMF surgeon, he will have re-evaluated the patient today. Follow up CT scan ordered Alert and oriented x3, Denies any increase in facial discomfort. CCU Objective - Vital Signs / Intake & Output Vital Signs (Last 4 hours): Vital Signs Temp Pulse Resp BP Pulse Ox 07/05/16 10:00 116 H 21 100/59 L 97 07/05/16 09:00 103 H 16 109/81 0 L 07/05/16 08:46 18 07/05/16 07:54 97.4 F L 92 H 16 108/76 100 Intake and Output (Last 8hrs): Intake & Output 07/04/16 07/05/16 07/05/16 22:59 06:59 14:59 Intake Total 520 150 640 Output Total 400 Balance 520 -250 640 Weight 129 lb Intake: IV 0 Intake, Piggyback 400 100 400 Oral 120 50 240 Output: Urine 400 Urethral (Gutierrez) 400 Other: # Bowel Movements 1 - Physical Exam Head: Positive for: Atraumatic, Tenderness, Swelling. Negative for: Ecchymosis Pupils: Positive for: PERRL. Negative for: Sluggish, Non-Reactive Extroacular Muscles: Positive for: EOMI. Negative for: Gaze Palsy, Entrapment Conjunctiva: Positive for: Normal Mouth: Positive for: Moist Mucous Membranes Pharnyx: Positive for: Normal Nose (External): Positive for: Atraumatic Nose (Internal): Positive for: Normal Inspection Neck: Positive for: Normal Range of Motion, Trachea Midline. Negative for: Meningeal Signs, MIDLINE TENDERNESS, Paraspinal Tenderness, JVD, Lymphadenopathy , Bruit, Other Respiratory/Chest: Positive for: Good Air Exchange, Decreased Breath Sounds, Rhonchi. Negative for: Respiratory Distress, Accessory Muscle Use Cardiovascular: Positive for: Regular Rate and Rhythm, Normal S1, S2, Peripheal Pulses Present, Tachycardic. Negative for: Murmurs, Irregular Rhythm Abdomen: Positive for: Normal Bowel Sounds. Negative for: Tenderness, Distention Upper Extremity: Positive for: Normal Inspection, NORMAL PULSES, Capillary Refill < 2s, Other (Rt arm swelling). Negative for: Cyanosis, Edema, Tenderness Lower Extremity: Positive for: Edema, NORMAL PULSES. Negative for: CALF TENDERNESS Neurological: Positive for: GCS=15, Speech Normal Skin: Positive for: Warm, Dry Psychiatric: Positive for: Alert, Oriented x 3 - Medications Active Medications: Active Medications Generic Name Dose Route Start Last Admin Trade Name Freq PRN Reason Stop Dose Admin Acetaminophen 650 mg 06/11/16 21:34 06/28/16 01:46 Tylenol 325mg Tab PO 650 mg Q6 PRN Administration Pain, moderate (4-7) Albuterol Sulfate 2.5 mg 06/07/16 09:55 07/01/16 07:45 Albuterol 0.083% Inhal Aby (2.5 Mg/3 Ml) Ud INH 2.5 mg RQ4 PRN Administration Shortness of Breath Albuterol/Ipratropium 3 ml 06/11/16 12:00 02/27/17 09:09 Duoneb 3 Mg/0.5 Mg (3 Ml) Ud INH 3 ml RQID ANDREAS Administration Alprazolam 0.25 mg 07/03/16 10:25 07/04/16 21:34 Xanax PO 07/10/16 10:26 0.25 mg Q12 PRN Administration Anxiety Anastrozole 1 mg 06/04/16 09:00 07/05/16 08:19 Arimidex 1 Mg Tab PO 1 mg DAILY ANDREAS Administration Baclofen 10 mg 06/04/16 22:00 07/04/16 21:28 Lioresal PO 10 mg HS ANDREAS Administration Enoxaparin Sodium 40 mg 06/04/16 09:00 07/05/16 08:19 Lovenox SC 40 mg DAILY ANDREAS Administration Protocol Gabapentin 600 mg 06/24/16 22:00 07/05/16 05:34 Neurontin PO 600 mg Q8H ANDREAS Administration Guaifenesin 600 mg 06/25/16 21:00 07/05/16 08:16 Mucinex La PO 600 mg Q12 ANDREAS Administration Meropenem 1 gm/ Sodium 100 mls @ 100 mls/hr 06/19/16 08:00 07/05/16 07:17 Chloride IVPB 100 mls/hr Q12@0800,2000 ANDREAS Administration Piperacillin Sod/Tazobactam 100 mls @ 100 mls/hr 06/24/16 17:00 07/05/16 08:47 Sod 3.375 gm/ Sodium Chloride IVPB 100 mls/hr Q8 ANDREAS Administration Linezolid 300 mls @ 300 mls/hr 06/27/16 21:00 07/05/16 08:46 Zyvox 600mg/300ml D5w IVPB 300 mls/hr Q12 ANDREAS Administration Fluconazole 100 mls @ 100 mls/hr 06/29/16 09:00 07/05/16 08:27 Diflucan Iv 200 Mg/100 Ml Ns IVPB 100 mls/hr DAILY ANDREAS Administration Hydrocortisone Sodium 100 mls @ 100 mls/hr 07/05/16 08:51 07/05/16 09:24 Succinate 50 mg/ Sodium IV Not Given Chloride DAILY ANDREAS Lactobacillus Acidophilus 1 cap 06/04/16 17:00 07/05/16 08:26 Bacid Acidophilus PO 1 cap BID ANDREAS Administration Loperamide HCl 2 mg 06/28/16 11:47 07/03/16 16:23 Imodium PO 2 mg QID PRN Administration Loose stools Methimazole 5 mg 07/01/16 17:00 07/05/16 08:16 Tapazole PO 5 mg BID ANDREAS Administration Morphine Sulfate 2 mg 07/01/16 17:40 07/04/16 17:14 Morphine IVP 2 mg Q4 PRN Administration Pain, moderate (4-7) Multi-Ingredient Cream 1 applic 06/07/16 10:00 07/05/16 08:27 Hydrocerin Cream TOP 1 applic BID ANDREAS Administration Multivitamins/Minerals 1 tab 06/04/16 09:00 07/05/16 08:17 Therapeutic-M Tab PO 1 tab DAILY ANDREAS Administration Nitroglycerin 1 in 07/01/16 22:00 07/05/16 09:03 Nitro-Bid 2% Oint TOP 1 in Q6 ANDREAS Administration Oxycodone/Acetaminophen 1 tab 07/04/16 18:48 07/04/16 18:56 Percocet 5/325 Mg Tab PO 07/07/16 18:49 1 tab Q6 PRN Administration Pain, moderate (4-7) Pantoprazole Sodium 40 mg 06/04/16 09:00 07/05/16 08:17 Protonix Ec Tab PO 40 mg DAILY ANDREAS Administration Roflumilast 500 mcg 07/01/16 09:00 07/05/16 08:17 Daliresp PO 500 mcg DAILY ANDREAS Administration Spironolactone 25 mg 07/01/16 09:00 07/05/16 08:17 Aldactone PO 25 mg DAILY ANDREAS Administration Zolpidem Tartrate 5 mg 06/14/16 22:14 07/02/16 22:31 Ambien PO 5 mg HS PRN Administration Sleep - Patient Studies Lab Studies: Lab Studies 07/05/16 Range/Units 04:40 Sodium 141 (132-148) mmol/l Potassium 2.9 L (3.6-5.0) MMOL/L Chloride 98 (98-107) mmol/L Carbon Dioxide 36 H (22-30) mmol/L Anion Gap 10 (10-20) BUN 16 (7-17) mg/dl Creatinine 0.4 L (0.7-1.2) mg/dL Est GFR ( Amer) > 60 Est GFR (Non-Af Amer) > 60 Random Glucose 86 (65-105) mg/dL Calcium 8.0 L (8.4-10.2) mg/dL Laboratory Results - last 24 hr 07/05/16 04:40 Sodium 141 Potassium 2.9 L Chloride 98 Carbon Dioxide 36 H Anion Gap 10 BUN 16 Creatinine 0.4 L Est GFR ( Amer) > 60 Est GFR (Non-Af Amer) > 60 Random Glucose 86 Calcium 8.0 L Critical Care Progress Note - Nutrition Nutrition: Nutrition Category Date Time Status Regular Diet [DIET] Diets 06/11/16 Dinner Active Assessment/Plan (1) Acute and chronic respiratory failure with hypercapnia Current Visit: Yes Status: Acute Comment: Continue Duonebs, HFNC, Theophylline, Diuresis (2) Acute exacerbation of CHF (congestive heart failure) Current Visit: Yes Status: Acute Comment: Echo 06/14: The systolic function is moderately impaired, EF 40-45 % and dilated RV with mild/mod deccrease RV function, diastolic inflow pattern is restrictive Diuresis, strict I&Os, daily Wt (3) Acute bronchitis with chronic obstructive pulmonary disease (COPD) Current Visit: No Status: Acute Priority: High Comment: Continue Duonebs INH RQID ANDREAS, Suplemental O2 Via HFNC Methylprednisone IV 40mg q 24 tapered by Pulm Theophylline Acapella therapy (4) Osteomyelitis of mandible Current Visit: Yes Status: Acute Comment: Continue IV antibiotics as per ID Pain control with Percocet (5) Hx of breast cancer Current Visit: No Status: Chronic Priority: Low Comment: S/p bilateral mastectomy Continue Arimidex 1mg PO daily
[2016-07-05] MEDS ORDERED: Potassium Chloride 20 mEq/15 ml LIQ UD PO ONE (10:39)
[2016-07-05] MEDS: Potassium CL 10 MEQ/50 ML 50 ML IVPB SCH ×4 (10:56→13:55)
--- NOTE | 2016-07-05 11:28 | CP.PCM.PN ---
Subjective - Date & Time of Evaluation Date of Evaluation: 07/05/16 Time of Evaluation: 11:30 - Subjective Subjective: I have seen and examined patient personally. Complaining of chest pain and neck pain ,pressure ,squizing type BP 100/59 HR 116 o2Sat 97 % on high flow oxygen 20 LPM on 30 % FIO2 , afebrile No acute issues overnight K 2.9 Objective - Vital Signs/Intake and Output Vital Signs (last 24 hours): Temp Pulse Resp BP Pulse Ox 97.4 F L 116 H 21 100/59 L 97 07/05/16 07:54 07/05/16 10:00 07/05/16 10:00 07/05/16 10:00 07/05/16 10:00 Intake and Output: 07/05/16 07/05/16 06:59 18:59 Intake Total 670 640 Output Total 400 Balance 270 640 - Medications Medications: Current Medications Acetaminophen (Tylenol 325mg Tab) 650 mg PO Q6 PRN PRN Reason: Pain, moderate (4-7) Last Admin: 06/28/16 01:46 Dose: 650 mg Albuterol Sulfate (Albuterol 0.083% Inhal Aby (2.5 Mg/3 Ml) Ud) 2.5 mg INH RQ4 PRN PRN Reason: Shortness of Breath Last Admin: 07/01/16 07:45 Dose: 2.5 mg Albuterol/Ipratropium (Duoneb 3 Mg/0.5 Mg (3 Ml) Ud) 3 ml INH RQID [facility] Last Admin: 07/05/16 09:09 Dose: 3 ml Alprazolam (Xanax) 0.25 mg PO Q12 PRN PRN Reason: Anxiety Stop: 07/10/16 10:26 Last Admin: 07/04/16 21:34 Dose: 0.25 mg Anastrozole (Arimidex 1 Mg Tab) 1 mg PO DAILY [facility] Last Admin: 07/05/16 08:19 Dose: 1 mg Baclofen (Lioresal) 10 mg PO HS [facility] Last Admin: 07/04/16 21:28 Dose: 10 mg Enoxaparin Sodium (Lovenox) 40 mg SC DAILY [facility] PRN Reason: Protocol Last Admin: 07/05/16 08:19 Dose: 40 mg Gabapentin (Neurontin) 600 mg PO Q8H [facility] Last Admin: 07/05/16 05:34 Dose: 600 mg Guaifenesin (Mucinex La) 600 mg PO Q12 [facility] Last Admin: 07/05/16 08:16 Dose: 600 mg Meropenem 1 gm/ Sodium (Chloride) 100 mls @ 100 mls/hr IVPB Q12@0800,2000 [facility] Last Admin: 07/05/16 07:17 Dose: 100 mls/hr Piperacillin Sod/Tazobactam (Sod 3.375 gm/ Sodium Chloride) 100 mls @ 100 mls/ hr IVPB Q8 [facility] Last Admin: 07/05/16 08:47 Dose: 100 mls/hr Linezolid (Zyvox 600mg/300ml D5w) 300 mls @ 300 mls/hr IVPB Q12 [facility] Last Admin: 07/05/16 08:46 Dose: 300 mls/hr Fluconazole (Diflucan Iv 200 Mg/100 Ml Ns) 100 mls @ 100 mls/hr IVPB DAILY [facility] Last Admin: 07/05/16 08:27 Dose: 100 mls/hr Hydrocortisone Sodium Succinate 50 mg/ Sodium Chloride 100 mls @ 100 mls/hr IV DAILY [facility] Last Admin: 07/05/16 09:24 Dose: Not Given Potassium Chloride (Potassium Cl 10meq/50ml Sterile Water) 50 mls @ 50 mls/hr IVPB Q1 [facility] Stop: 07/05/16 14:59 Last Admin: 07/05/16 10:56 Dose: 50 mls/hr Lactobacillus Acidophilus (Bacid Acidophilus) 1 cap PO BID [facility] Last Admin: 07/05/16 08:26 Dose: 1 cap Loperamide HCl (Imodium) 2 mg PO QID PRN PRN Reason: Loose stools Last Admin: 07/03/16 16:23 Dose: 2 mg Methimazole (Tapazole) 5 mg PO BID [facility] Last Admin: 07/05/16 08:16 Dose: 5 mg Morphine Sulfate (Morphine) 2 mg IVP Q4 PRN PRN Reason: Pain, moderate (4-7) Last Admin: 07/04/16 17:14 Dose: 2 mg Multi-Ingredient Cream (Hydrocerin Cream) 1 applic TOP BID [facility] Last Admin: 07/05/16 08:27 Dose: 1 applic Multivitamins/Minerals (Therapeutic-M Tab) 1 tab PO DAILY [facility] Last Admin: 07/05/16 08:17 Dose: 1 tab Nitroglycerin (Nitro-Bid 2% Oint) 1 in TOP Q6 [facility] Last Admin: 07/05/16 09:03 Dose: 1 in Oxycodone/Acetaminophen (Percocet 5/325 Mg Tab) 1 tab PO Q6 PRN PRN Reason: Pain, moderate (4-7) Stop: 07/07/16 18:49 Last Admin: 07/04/16 18:56 Dose: 1 tab Pantoprazole Sodium (Protonix Ec Tab) 40 mg PO DAILY [facility] Last Admin: 07/05/16 08:17 Dose: 40 mg Roflumilast (Daliresp) 500 mcg PO DAILY [facility] Last Admin: 07/05/16 08:17 Dose: 500 mcg Spironolactone (Aldactone) 25 mg PO DAILY [facility] Last Admin: 07/05/16 08:17 Dose: 25 mg Zolpidem Tartrate (Ambien) 5 mg PO HS PRN PRN Reason: Sleep Last Admin: 07/02/16 22:31 Dose: 5 mg - Labs Labs: 07/03/16 05:50 07/05/16 04:40 PT 11.0 SECONDS (9.6-11.2) 06/09/16 04:10 INR 1.06 (0.92-1.08) 06/09/16 04:10 APTT 27.5 SECONDS (23.3-32.5) 06/03/16 22:33 - Constitutional Appears: Non-toxic, Chronically Ill - Head Exam Head Exam: ATRAUMATIC Additional comments: right facial swelling - Eye Exam Eye Exam: EOMI, PERRL Pupil Exam: NORMAL ACCOMODATION - ENT Exam ENT Exam: Mucous Membranes Moist, Normal Exam - Neck Exam Neck Exam: Full ROM, Normal Inspection - Respiratory Exam Respiratory Exam: Accessory Muscle Use, Decreased Breath Sounds (bibasilar ), Prolonged Expiratory Phase, Respiratory Distress. absent: Wheezes, Stridor - Cardiovascular Exam Cardiovascular Exam: REGULAR RHYTHM, +S1, +S2. absent: JVD - GI/Abdominal Exam GI & Abdominal Exam: Soft, Normal Bowel Sounds. absent: Guarding, Tenderness, Rebound - Rectal Exam Rectal Exam: Deferred - Extremities Exam Extremities Exam: Pedal Edema (3 + bilaterally ) Additional comments: RUE lymphedema - Back Exam Back Exam: NORMAL INSPECTION - Neurological Exam Neurological Exam: Alert, Awake, CN II-XII Intact, Oriented x3 - Psychiatric Exam Psychiatric exam: Normal Affect - Skin Skin Exam: Dry, Pallor, Warm Additional comments: multipl eechymotic areas to upper chest anf LUE Assessment and Plan - Assessment and Plan (Free Text) Assessment: 66 y/o female PMH COPD, bilateral breast CA s/p chemo and radiation 8 years ago with bone mets to shoulder (s/p humeral resection), HTN, Hyperthyroidism presented with 2 week history of worsening bilateral lower extremity swelling and weakness, unable to get herself up to her walker. Patient has mild dyspnea at baseline. She also came with a large right facial swelling for almost 2 weeks and was taking PO antibiotics prescribed by her dentist. Patient was admitted for generalized weakness , Hyponatremia and Facial abscess. She was started on IV antibiotics for facial abscess and Lasix IV with fluid restriction for LE edema. Maxillofacial Ct showed possible abscess accumulation. Evaluated by Oromaxillofacial surgeon and underwent Incision and drainage of abscess. Bone scan showed possible osteomyelitis . ID recommends 4-6 wks IV abx treatment. During this hospitalization noted to have increased dyspnea at rest and more so with minimal activity, decreased air entry bilaterally and increased work of breathing. She was started on high flow O2, Higher doses of theophylline and IV hydrocortisone. CTA chest and LE doppler showed no DVT , except right cephallic cherelle thrombosis . She was transferred to ICU for close monitoring for tachypnea and tachycardia. At present, still on High Flow Oxygen 20 LMP FIO2 30 % with good oxygenation but still with episodes of respiratory distress ,tachycardia and chest pain . 1. Acute on Chronic Respiratory Insufficiency with hypercapnea Most likely secondary to COPD exacerbation with acute bronchitis and CHF exacerbation Continue high flow O2 via NC 25 LMP on FIO2 30 % CT chest showed no PE and improved bilateral pleural effusion after diuresis LE doppler showed no DVT decreased Aldactone to 25 mg QD bec of hypokalemia Continue Duonebs Continue Chest PT , Coughalator and Acapella therapy Dr. Benz following patient closely Discontinued ASA, coreg , Theophylline and started Daliresp taper Hydrocortisone to 100 mg IV daily on very low dose Xanax 0.25 bid prn as this seem to help when pt gets very anxious, tachypenic and tachycardic 2. Chest Pain , prob sec to Annxiety, ACS ruled out with pressure like chest pain on and off cardiology consult with Dr. Luu appreciated Trop -- negative and EKG showed no ST-T wave changes Most likely atypical chest pain related to anxiety , hypokalemia and COPD. There is no signs of ischemia 3. Facial abscess with mandibular Osteomyelitis s/p drainage of abscess Maxillofacial Ct showed :Large enhancing wall collection seen around the mid and upper right mandibular ramus and mandibular neck extending anteriorly and seen medial and lateral to the right zygomatic arch. This collection contains foci of air. The density and the appearance of this collection suggestive of abscess formation. The collection is seen anterior to the right parotid gland and extending medially to the posterior right oral cavity. [id number] right maxillary sinus mucosal thickening and small air-fluid level. Partial opacification of both mastoids suggestive of mastoiditis. ID on consult: Dr Obrien. Recommended IV abx 6 wks total ( # Day ) OMFS Dr. Ambrose consulted and patient underwent Incision and drainage on 06/09 pathology report showed inflammatory cells, no malignancy Nuclear Bone Scan suggestive of osteomyelitis Tunneled central line placed for watermelon inspector IV antibiotics- this will need to be d/c by IR after IV abx treatment is completed ( as discussed with Dr Gunter - pt was informed of need to see IR after abx tx) Antibiotics changed : now on Zyvox , Zosyn, Meropenem and Fluconazole Pt underwent drainage of facial collection by IR on 06/24 and 24 ml yellow fluid obtained- c/s : VRE and Amanda ENT eval with Dr. Priest appreciated. He recommends maxillofacial evaluation for dental abscess , not parotitis. Dr Ambrose re consulted -awaiting re eval Patient may need drainage of abscess again Will repeat maxillofacial CT to better evaluate abscess 4. Bilateral LE edema sec to CHF exacerbation with diastolic dysfxn still with LE edema bilateral 2 + diuresing well with negative balance I/O 1680/3600 Echo showed EF 40-45 % and dilated RV continue fluid restriction Promote ambulation 5. Hypokalemia multifactorial diuretic induced , Albuterol, Hypothyroidism and GI loss ( had 5 BM ) off Lasix Continue KCl runs and PO replacement K 2.9 today Nephro consult appreciated CT of abd showed no adrenal mass 6 .Hyponatremia, resolved most likely secondary to solute depletion and infection Continue fluid restriction 7.Hx breast ca, bilateral stable, s/p bilateral mastectomy continue arimidex 8. Tachycardia -- multifactorial Hx of HTN was on verapamil at home ( 80mg tid) but decreased dose due to low BP and now discontinued as may contribute to leg edema started low dose Coreg but discontinued due to COPD continue monitoring 9. Hypothyroidism patient has history of hyperthyroidism and was on Methimazole but had developed hypothyroidism so Methimazole was d/c and she was started on Po levothyroxine- At present TSH 0.25 so Methimazole restarted as discussed with Dr Vu d/c levothyroxine 10. Anemia, chronic dis monitor anemia work up showed depleted iron stores Venofer IV given s/p 2 units PRBC transfusion 11. Right cephalic vein thrombosis ( superficial vein) on lovenox 12.DVT ppx lovenox
--- NOTE | 2016-07-05 16:14 | PN ---
DATE: 07/05/2016 ROOM: 434 ICU. This is a 66-year-old female with overt hyperthyroidism and admitted here with congestive heart failu re and an acute exacerbation of chronic obstructive pulmonary disease with respiratory insufficiency. She is currently still on the IV steroid therapy as given. She is also tolerating the Tapazole med ications as ordered. Her latest chemistries include a BUN of 16, sodium 141, potassium 2.9, chloride 98, CO2 36, glucose 8 6 and creatinine 0.4. Her latest thyroid study showed a T4 of 4.81 mcg/dL with a free T4 of 0.73 and a TSH of 0.25. So at this time, we will continue the low-dose medical therapy given as Tapazole at 5 mg b.i.d. after meals as ordered. We will titrate incrementally as indicated to optimize metabolic control. We mikhail l also repeat the thyroid studies and adjust her dose regimen accordingly. We will follow. Polly Vu MD cc: [id number] TT: 07/05/2016 16:14:02 Confirmation # [id number] Dictation # [id number]
[2016-07-05] MEDS ORDERED: Iohexol 300 100 ML IJ ONE (17:29)
[2016-07-05] MEDS ORDERED: Sodium Chloride 0.9% 50 ML IV ONE (17:29)
--- NOTE | 2016-07-05 17:53 | CP.PCM.PN ---
Subjective - Date & Time of Evaluation Date of Evaluation: 07/05/16 Time of Evaluation: 17:53 - Subjective Subjective: pt seen and examined, follow up consult is dictated #[id number] Objective - Vital Signs/Intake and Output Vital Signs (last 24 hours): Temp Pulse Resp BP Pulse Ox 98.3 F 111 H 19 110/72 95 07/05/16 16:00 07/05/16 17:00 07/05/16 17:00 07/05/16 17:00 07/05/16 17:00 Intake and Output: 07/05/16 07/05/16 06:59 18:59 Intake Total 670 1530 Output Total 400 Balance 270 1530 - Medications Medications: Current Medications Acetaminophen (Tylenol 325mg Tab) 650 mg PO Q6 PRN PRN Reason: Pain, moderate (4-7) Last Admin: 06/28/16 01:46 Dose: 650 mg Albuterol Sulfate (Albuterol 0.083% Inhal Aby (2.5 Mg/3 Ml) Ud) 2.5 mg INH RQ4 PRN PRN Reason: Shortness of Breath Last Admin: 07/01/16 07:45 Dose: 2.5 mg Albuterol/Ipratropium (Duoneb 3 Mg/0.5 Mg (3 Ml) Ud) 3 ml INH RQID [facility] Last Admin: 07/05/16 15:58 Dose: 3 ml Alprazolam (Xanax) 0.25 mg PO Q12 PRN PRN Reason: Anxiety Stop: 07/10/16 10:26 Last Admin: 07/04/16 21:34 Dose: 0.25 mg Anastrozole (Arimidex 1 Mg Tab) 1 mg PO DAILY [facility] Last Admin: 07/05/16 08:19 Dose: 1 mg Baclofen (Lioresal) 10 mg PO HS [facility] Last Admin: 07/04/16 21:28 Dose: 10 mg Enoxaparin Sodium (Lovenox) 40 mg SC DAILY [facility] PRN Reason: Protocol Last Admin: 07/05/16 08:19 Dose: 40 mg Gabapentin (Neurontin) 600 mg PO Q8H [facility] Last Admin: 07/05/16 13:40 Dose: 600 mg Guaifenesin (Mucinex La) 600 mg PO Q12 [facility] Last Admin: 07/05/16 08:16 Dose: 600 mg Meropenem 1 gm/ Sodium (Chloride) 100 mls @ 100 mls/hr IVPB Q12@0800,2000 [facility] Last Admin: 07/05/16 07:17 Dose: 100 mls/hr Piperacillin Sod/Tazobactam (Sod 3.375 gm/ Sodium Chloride) 100 mls @ 100 mls/ hr IVPB Q8 [facility] Last Admin: 07/05/16 16:04 Dose: 100 mls/hr Linezolid (Zyvox 600mg/300ml D5w) 300 mls @ 300 mls/hr IVPB Q12 [facility] Last Admin: 07/05/16 08:46 Dose: 300 mls/hr Fluconazole (Diflucan Iv 200 Mg/100 Ml Ns) 100 mls @ 100 mls/hr IVPB DAILY [facility] Last Admin: 07/05/16 08:27 Dose: 100 mls/hr Hydrocortisone Sodium Succinate 50 mg/ Sodium Chloride 100 mls @ 100 mls/hr IV DAILY [facility] Last Admin: 07/05/16 09:24 Dose: Not Given Lactobacillus Acidophilus (Bacid Acidophilus) 1 cap PO BID [facility] Last Admin: 07/05/16 16:05 Dose: 1 cap Loperamide HCl (Imodium) 2 mg PO QID PRN PRN Reason: Loose stools Last Admin: 07/03/16 16:23 Dose: 2 mg Methimazole (Tapazole) 5 mg PO BID [facility] Last Admin: 07/05/16 16:07 Dose: 5 mg Morphine Sulfate (Morphine) 2 mg IVP Q4 PRN PRN Reason: Pain, moderate (4-7) Last Admin: 07/05/16 11:30 Dose: 2 mg Multi-Ingredient Cream (Hydrocerin Cream) 1 applic TOP BID [facility] Last Admin: 07/05/16 16:21 Dose: 1 applic Multivitamins/Minerals (Therapeutic-M Tab) 1 tab PO DAILY [facility] Last Admin: 07/05/16 08:17 Dose: 1 tab Nitroglycerin (Nitro-Bid 2% Oint) 1 in TOP Q6 [facility] Last Admin: 07/05/16 15:13 Dose: 1 in Oxycodone/Acetaminophen (Percocet 5/325 Mg Tab) 1 tab PO Q6 PRN PRN Reason: Pain, moderate (4-7) Stop: 07/07/16 18:49 Last Admin: 07/04/16 18:56 Dose: 1 tab Pantoprazole Sodium (Protonix Ec Tab) 40 mg PO DAILY [facility] Last Admin: 07/05/16 08:17 Dose: 40 mg Roflumilast (Daliresp) 500 mcg PO DAILY [facility] Last Admin: 07/05/16 08:17 Dose: 500 mcg Spironolactone (Aldactone) 25 mg PO DAILY [facility] Last Admin: 07/05/16 08:17 Dose: 25 mg Zolpidem Tartrate (Ambien) 5 mg PO HS PRN PRN Reason: Sleep Last Admin: 07/02/16 22:31 Dose: 5 mg - Labs Labs: 07/03/16 05:50 07/05/16 04:40 PT 11.0 SECONDS (9.6-11.2) 06/09/16 04:10 INR 1.06 (0.92-1.08) 06/09/16 04:10 APTT 27.5 SECONDS (23.3-32.5) 06/03/16 22:33
[2016-07-06] MEDS: Piperacillin/Tazobact 3.375 GM in Sodium Chloride 0.9% 100 ML IVPB SCH (00:25)
--- NOTE | 2016-07-06 04:12 | PN ---
DATE: 07/05/2016 The patient is located in ICU room 434, bed 1. REQUESTED BY: Dr. Josefa Pimentel. REASON FOR RENAL FOLLOWUP: Electrolyte imbalance, hypokalemia, metabolic alkalosis. HISTORY OF PRESENT ILLNESS: The patient is a 66-year-old elderly female with a history of hypertension, bilateral breast CA status post surgery, status post chemo and radiation, who was admitted initially with swelling of the right side of the face. The patient is being treated for osteomyelitis of the mandible and hospital course complicated by severe hypokalemia and diarrhea. The patient is feeling slightly better today, less diarrhea as per the patient. Denies any nausea, vomiting today. The patient does complain of occasional chest discomfort. No pain today. PHYSICAL EXAMINATION: VITAL SIGNS: Blood pressure 106/70, pulse 112, respirations about 18, temperature 98.8, saturation 97%, height 5 feet 2 inches and weight is 129 pounds. GENERAL: The patient is a 66-year-old elderly female, well built, well nourished, not in distress. HEENT: Pupils normal, reactive to light and accommodation. Conjunctivae pink. Sclerae anicteric. Tongue is moist. NECK: Trachea is midline. LUNGS: Symmetric on both sides. Bilateral breath sounds present. CARDIOVASCULAR: [place] in the fifth intercostal space midclavicular line. S1, S2 audible. Slightly irregular. ABDOMEN: Normal in appearance, soft, tympanic. No guarding, no rigidity. No hepatosplenomegaly. CENTRAL NERVOUS SYSTEM: The patient is alert, awake, oriented x 3, nonfocal on examination. EXTREMITIES: No cyanosis, no clubbing, no edema. CURRENT MEDICATIONS: Include as follows: Albuterol inhaler q. 4 hours p.r.n., Aldactone 25 mg p.o. daily, Ambien 5 mg p.o. at bedtime, Bacid 1 capsule p.o. b.i.d., roflumilast 500 mcg p.o. daily, Diflucan 200 mg p.o. daily, DuoNeb inhaler q.i.d., Hydrocerin cream topical b.i.d., hydrocortisone 50 mg daily given, Imodium 2 mg p.o. q.i.d. p.r.n., baclofen 10 mg p.o. at bedtime, Merrem 1 gram q. 12 hours, morphine sulfate 2 mg IV q. 4 hours, Mucinex, Neurontin, nitroglycerin ointment 1 inch topically q. 6 hours, Percocet 1 tablet q. 6 hours p.r.n., Zosyn 3.375 grams q. 8 hours, Protonix 40 mg daily, Tapazole 5 mg p.o. b.i.d., multivitamin 1 tablet daily, Tylenol 650 p.o. q. 6 hours, Xanax 0.25 mg p.o. q. 12 and Zyvox 600 mg q. 12. LABORATORY DATA: Include as follows: Sodium 141, potassium 2.9, chloride 98, CO2 36, BUN 16, creatinine 0.4, glucose 86, calcium is 8.0. SUMMARY: This is a 66-year-old elderly female with a history of hypertension, bilateral breast CA status post chemoradiation and surgery, was admitted with swelling of the right side of the face. The patient was found to have osteomyelitis of the mandible, on IV antibiotics with low H and H, low potassium and increased BUN and creatinine ratio and also increased bicarbonate and urine anion gap of 7 . 1. Hypokalemia, etiology is not clear, cannot rule out gastrointestinal loss and also cannot rule out Gitelman syndrome or varient of barter's syndrome. 2. diarrhea 3. met. alkaosis 4. OM of Mandible PLAN: Check 24-hour urine calcium and magnesium level and agree to supplement potassium with KCl 40 mEq p.o. x 1 and 40 mEq IV piggyback and discussed with lead recreation assistant, Dr. Sauer, and recommending another dose of KCl p.o. 40 mEq x 1 and repeat BMP level in the a.m. and also check 24-hour urine calcium and magnesium level. We will follow with you. Thank you for allowing me to participate in your patient's care. Randall Lerma MD cc: [id number] TT: 07/06/2016 04:12:01 Confirmation # [id number] Dictation # [id number] [facility]
[2016-07-06 05:19] LABS: MEAN CELL VOLUME 85.3 fl (81.0-99.0); MEAN CORPUSCULAR HEMOGLOBIN 26.3 pg (27.0-31.0); MEAN CORPUSCULAR HGB CONC 30.9 g/dL (33.0-37.0)
[2016-07-06 05:28] LABS: BLOOD UREA NITROGEN 13 mg/dl (7-17); CALCIUM 8.3 mg/dL (8.4-10.2); CARBON DIOXIDE 35 mmol/L (22-30); CHLORIDE 100 mmol/L (98-107); GFR AFRICAN-AMERICAN > 60; GLUCOSE,RANDOM 78 mg/dL (65-105); POTASSIUM 3.7 MMOL/L (3.6-5.0); SODIUM 140 mmol/l (132-148)
[2016-07-06] MEDS: Nitroglycerin 2% 1GM UD TOP SCH ×3 (06:48→21:08)
[2016-07-06] MEDS: Albuterol-Ipratrop 3 mg / 0.5 (3 ml) UD INH SCH ×5 (08:17→19:40)
[2016-07-06] MEDS: Hydrocortisone- 50 MG in Sodium Chloride 0.9% 100 ML IV SCH (08:33)
[2016-07-06] MEDS: Fluconazole IV 200mg/100 ml NS 100 ML IVPB SCH (08:34)
[2016-07-06] MEDS: Meropenem 1 GM in Sodium Chloride 0.9% 100 ML IVPB SCH ×2 (08:34→20:50)
[2016-07-06] MEDS: Linezolid 600 mg in D5W 300 ml 300 ML IVPB SCH ×2 (08:35→21:13)
--- NOTE | 2016-07-06 09:16 | CP.PCM.PN ---
Subjective - Date & Time of Evaluation Date of Evaluation: 07/06/16 Time of Evaluation: 09:15 - Subjective Subjective: pt seen and examined, follow up consult is dictated #[id number] k is 3.7 today give kcl 40 meq po x 1 today Objective - Vital Signs/Intake and Output Vital Signs (last 24 hours): Temp Pulse Resp BP Pulse Ox 98.7 F 106 H 20 112/73 100 07/06/16 08:00 07/06/16 08:00 07/06/16 08:19 07/06/16 08:00 07/06/16 08:00 Intake and Output: 07/06/16 07/06/16 06:59 18:59 Intake Total 830 Output Total 1200 Balance -370 - Medications Medications: Current Medications Acetaminophen (Tylenol 325mg Tab) 650 mg PO Q6 PRN PRN Reason: Pain, moderate (4-7) Last Admin: 06/28/16 01:46 Dose: 650 mg Albuterol Sulfate (Albuterol 0.083% Inhal Aby (2.5 Mg/3 Ml) Ud) 2.5 mg INH RQ4 PRN PRN Reason: Shortness of Breath Last Admin: 07/01/16 07:45 Dose: 2.5 mg Albuterol/Ipratropium (Duoneb 3 Mg/0.5 Mg (3 Ml) Ud) 3 ml INH RQID [facility] Last Admin: 07/06/16 08:17 Dose: 3 ml Alprazolam (Xanax) 0.25 mg PO Q12 PRN PRN Reason: Anxiety Stop: 07/10/16 10:26 Last Admin: 07/04/16 21:34 Dose: 0.25 mg Anastrozole (Arimidex 1 Mg Tab) 1 mg PO DAILY [facility] Last Admin: 07/05/16 08:19 Dose: 1 mg Baclofen (Lioresal) 10 mg PO HS [facility] Last Admin: 07/05/16 22:16 Dose: 10 mg Gabapentin (Neurontin) 600 mg PO Q8H [facility] Last Admin: 07/06/16 06:48 Dose: Not Given Guaifenesin (Mucinex La) 600 mg PO Q12 [facility] Last Admin: 07/05/16 20:40 Dose: 600 mg Meropenem 1 gm/ Sodium (Chloride) 100 mls @ 100 mls/hr IVPB Q12@0800,2000 [facility] Last Admin: 07/06/16 08:34 Dose: 100 mls/hr Piperacillin Sod/Tazobactam (Sod 3.375 gm/ Sodium Chloride) 100 mls @ 100 mls/ hr IVPB Q8 [facility] Last Admin: 07/06/16 00:25 Dose: 100 mls/hr Linezolid (Zyvox 600mg/300ml D5w) 300 mls @ 300 mls/hr IVPB Q12 [facility] Last Admin: 07/06/16 08:35 Dose: 300 mls/hr Fluconazole (Diflucan Iv 200 Mg/100 Ml Ns) 100 mls @ 100 mls/hr IVPB DAILY [facility] Last Admin: 07/06/16 08:34 Dose: 100 mls/hr Hydrocortisone Sodium Succinate 50 mg/ Sodium Chloride 100 mls @ 100 mls/hr IV DAILY [facility] Last Admin: 07/06/16 08:33 Dose: 100 mls/hr Lactobacillus Acidophilus (Bacid Acidophilus) 1 cap PO BID [facility] Last Admin: 07/05/16 16:05 Dose: 1 cap Loperamide HCl (Imodium) 2 mg PO QID PRN PRN Reason: Loose stools Last Admin: 07/03/16 16:23 Dose: 2 mg Methimazole (Tapazole) 5 mg PO BID [facility] Last Admin: 07/05/16 16:07 Dose: 5 mg Morphine Sulfate (Morphine) 2 mg IVP Q4 PRN PRN Reason: Pain, moderate (4-7) Last Admin: 07/06/16 01:19 Dose: 2 mg Multi-Ingredient Cream (Hydrocerin Cream) 1 applic TOP BID [facility] Last Admin: 07/05/16 16:21 Dose: 1 applic Multivitamins/Minerals (Therapeutic-M Tab) 1 tab PO DAILY [facility] Last Admin: 07/05/16 08:17 Dose: 1 tab Nitroglycerin (Nitro-Bid 2% Oint) 1 in TOP Q6 [facility] Last Admin: 07/06/16 06:48 Dose: Not Given Oxycodone/Acetaminophen (Percocet 5/325 Mg Tab) 1 tab PO Q6 PRN PRN Reason: Pain, moderate (4-7) Stop: 07/07/16 18:49 Last Admin: 07/04/16 18:56 Dose: 1 tab Pantoprazole Sodium (Protonix Ec Tab) 40 mg PO DAILY [facility] Last Admin: 07/05/16 08:17 Dose: 40 mg Roflumilast (Daliresp) 500 mcg PO DAILY [facility] Last Admin: 07/05/16 08:17 Dose: 500 mcg Spironolactone (Aldactone) 25 mg PO DAILY [facility] Last Admin: 07/05/16 08:17 Dose: 25 mg Zolpidem Tartrate (Ambien) 5 mg PO HS PRN PRN Reason: Sleep Last Admin: 07/02/16 22:31 Dose: 5 mg - Labs Labs: 07/06/16 04:40 07/06/16 04:40 PT 11.0 SECONDS (9.6-11.2) 06/09/16 04:10 INR 1.06 (0.92-1.08) 06/09/16 04:10 APTT 27.5 SECONDS (23.3-32.5) 06/03/16 22:33
--- NOTE | 2016-07-06 09:47 | CP.PCM.PN ---
Subjective - Date & Time of Evaluation Date of Evaluation: 07/06/16 Time of Evaluation: 08:00 - Subjective Subjective: Patient seen and examined bedside. Feeling better today with no chest pain , less dyspnea . still on high flow O2 via NC 20 LPM / 30 % with O2Sat 98 % BP 112/73 HR 106 afebrile No acute issues overnight Maxillofacial Ct showed right fluid collection For possible drain placement to facial abscess today by Dr. Anderson Objective - Vital Signs/Intake and Output Vital Signs (last 24 hours): Temp Pulse Resp BP Pulse Ox 98.7 F 106 H 20 112/73 100 07/06/16 08:00 07/06/16 08:00 07/06/16 08:19 07/06/16 08:00 07/06/16 08:00 Intake and Output: 07/06/16 07/06/16 06:59 18:59 Intake Total 830 Output Total 1200 Balance -370 - Medications Medications: Current Medications Acetaminophen (Tylenol 325mg Tab) 650 mg PO Q6 PRN PRN Reason: Pain, moderate (4-7) Last Admin: 06/28/16 01:46 Dose: 650 mg Albuterol Sulfate (Albuterol 0.083% Inhal Aby (2.5 Mg/3 Ml) Ud) 2.5 mg INH RQ4 PRN PRN Reason: Shortness of Breath Last Admin: 07/01/16 07:45 Dose: 2.5 mg Albuterol/Ipratropium (Duoneb 3 Mg/0.5 Mg (3 Ml) Ud) 3 ml INH RQID [facility] Last Admin: 07/06/16 08:17 Dose: 3 ml Alprazolam (Xanax) 0.25 mg PO Q12 PRN PRN Reason: Anxiety Stop: 07/10/16 10:26 Last Admin: 07/04/16 21:34 Dose: 0.25 mg Anastrozole (Arimidex 1 Mg Tab) 1 mg PO DAILY [facility] Last Admin: 07/05/16 08:19 Dose: 1 mg Baclofen (Lioresal) 10 mg PO HS [facility] Last Admin: 07/05/16 22:16 Dose: 10 mg Gabapentin (Neurontin) 600 mg PO Q8H [facility] Last Admin: 07/06/16 06:48 Dose: Not Given Guaifenesin (Mucinex La) 600 mg PO Q12 [facility] Last Admin: 07/05/16 20:40 Dose: 600 mg Meropenem 1 gm/ Sodium (Chloride) 100 mls @ 100 mls/hr IVPB Q12@0800,2000 [facility] Last Admin: 07/06/16 08:34 Dose: 100 mls/hr Piperacillin Sod/Tazobactam (Sod 3.375 gm/ Sodium Chloride) 100 mls @ 100 mls/ hr IVPB Q8 [facility] Last Admin: 07/06/16 00:25 Dose: 100 mls/hr Linezolid (Zyvox 600mg/300ml D5w) 300 mls @ 300 mls/hr IVPB Q12 [facility] Last Admin: 07/06/16 08:35 Dose: 300 mls/hr Fluconazole (Diflucan Iv 200 Mg/100 Ml Ns) 100 mls @ 100 mls/hr IVPB DAILY [facility] Last Admin: 07/06/16 08:34 Dose: 100 mls/hr Hydrocortisone Sodium Succinate 50 mg/ Sodium Chloride 100 mls @ 100 mls/hr IV DAILY [facility] Last Admin: 07/06/16 08:33 Dose: 100 mls/hr Lactobacillus Acidophilus (Bacid Acidophilus) 1 cap PO BID [facility] Last Admin: 07/05/16 16:05 Dose: 1 cap Loperamide HCl (Imodium) 2 mg PO QID PRN PRN Reason: Loose stools Last Admin: 07/03/16 16:23 Dose: 2 mg Methimazole (Tapazole) 5 mg PO BID [facility] Last Admin: 07/05/16 16:07 Dose: 5 mg Morphine Sulfate (Morphine) 2 mg IVP Q4 PRN PRN Reason: Pain, moderate (4-7) Last Admin: 07/06/16 01:19 Dose: 2 mg Multi-Ingredient Cream (Hydrocerin Cream) 1 applic TOP BID [facility] Last Admin: 07/05/16 16:21 Dose: 1 applic Multivitamins/Minerals (Therapeutic-M Tab) 1 tab PO DAILY [facility] Last Admin: 07/05/16 08:17 Dose: 1 tab Nitroglycerin (Nitro-Bid 2% Oint) 1 in TOP Q6 [facility] Last Admin: 07/06/16 06:48 Dose: Not Given Oxycodone/Acetaminophen (Percocet 5/325 Mg Tab) 1 tab PO Q6 PRN PRN Reason: Pain, moderate (4-7) Stop: 07/07/16 18:49 Last Admin: 07/04/16 18:56 Dose: 1 tab Pantoprazole Sodium (Protonix Ec Tab) 40 mg PO DAILY [facility] Last Admin: 07/05/16 08:17 Dose: 40 mg Roflumilast (Daliresp) 500 mcg PO DAILY [facility] Last Admin: 07/05/16 08:17 Dose: 500 mcg Spironolactone (Aldactone) 25 mg PO DAILY [facility] Last Admin: 07/05/16 08:17 Dose: 25 mg Zolpidem Tartrate (Ambien) 5 mg PO HS PRN PRN Reason: Sleep Last Admin: 07/02/16 22:31 Dose: 5 mg - Labs Labs: 07/06/16 04:40 07/06/16 04:40 PT 11.0 SECONDS (9.6-11.2) 06/09/16 04:10 INR 1.06 (0.92-1.08) 06/09/16 04:10 APTT 27.5 SECONDS (23.3-32.5) 06/03/16 22:33 - Constitutional Appears: Non-toxic, Chronically Ill - Head Exam Head Exam: ATRAUMATIC, NORMOCEPHALIC Additional comments: right facial supra mandibular swelling - Eye Exam Eye Exam: EOMI, Normal appearance, PERRL - ENT Exam ENT Exam: Mucous Membranes Moist, Normal Exam - Neck Exam Neck Exam: Full ROM, Normal Inspection - Respiratory Exam Respiratory Exam: Decreased Breath Sounds (bibasilar ), Prolonged Expiratory Phase. absent: Rhonchi, Wheezes - Cardiovascular Exam Cardiovascular Exam: REGULAR RHYTHM, +S1, +S2. absent: JVD - GI/Abdominal Exam GI & Abdominal Exam: Soft, Normal Bowel Sounds. absent: Distended, Guarding, Tenderness, Rebound - Rectal Exam Rectal Exam: Deferred - Extremities Exam Extremities Exam: Full ROM, Normal Inspection, Pedal Edema (LLE 3 +, RLE 2 + RUE lymphedema) - Back Exam Back Exam: NORMAL INSPECTION - Neurological Exam Neurological Exam: Alert, Awake, CN II-XII Intact, Oriented x3 - Psychiatric Exam Psychiatric exam: Normal Affect - Skin Skin Exam: Dry, Pallor, Warm Additional comments: upper chest and LUE multiple echymotic areas Assessment and Plan - Assessment and Plan (Free Text) Assessment: 66 y/o female PMH COPD, bilateral breast CA s/p chemo and radiation 8 years ago with bone mets to shoulder (s/p humeral resection), HTN, Hyperthyroidism presented with 2 week history of worsening bilateral lower extremity swelling and weakness, unable to get herself up to her walker. Patient has mild dyspnea at baseline. She also came with a large right facial swelling for almost 2 weeks and was taking PO antibiotics prescribed by her dentist. Patient was admitted for generalized weakness , Hyponatremia and Facial abscess. She was started on IV antibiotics for facial abscess and Lasix IV with fluid restriction for LE edema. Maxillofacial Ct showed possible abscess accumulation. Evaluated by Oromaxillofacial surgeon and underwent Incision and drainage of abscess. Bone scan showed possible osteomyelitis . ID recommends 4-6 wks IV abx treatment. During this hospitalization noted to have increased dyspnea at rest and more so with minimal activity, decreased air entry bilaterally and increased work of breathing. She was started on high flow O2, Higher doses of theophylline and IV hydrocortisone. CTA chest and LE doppler showed no DVT , except right cephallic cherelle thrombosis . She was transferred to ICU for close monitoring for tachypnea and tachycardia. At present, still on High Flow Oxygen 20 LMP FIO2 30 % with good oxygenation, feeling better today. For drain placement to right facial abscess by maxillofacial abscess today 1. Acute on Chronic Respiratory Insufficiency with hypercapnea Most likely secondary to COPD exacerbation with acute bronchitis and CHF exacerbation Continue high flow O2 via NC 25 LMP on FIO2 30 % CT chest showed no PE and improved bilateral pleural effusion after diuresis LE doppler showed no DVT Continue Duonebs Continue Chest PT , Coughalator and Acapella therapy Dr. Benz following patient closely Discontinued ASA, coreg , Theophylline and started Daliresp tapered Hydrocortisone to 50 mg IV daily on very low dose Xanax 0.25 bid prn as this seem to help when pt gets very anxious, tachypenic and tachycardic 2. Chest Pain , prob sec to Annxiety, ACS ruled out with pressure like chest pain on and off cardiology consult with Dr. Luu appreciated Trop -- negative and EKG showed no ST-T wave changes Most likely atypical chest pain related to anxiety , hypokalemia and COPD. There is no signs of ischemia 3. Facial abscess with mandibular Osteomyelitis s/p drainage of abscess Maxillofacial Ct showed :Large enhancing wall collection seen around the mid and upper right mandibular ramus and mandibular neck extending anteriorly and seen medial and lateral to the right zygomatic arch. This collection contains foci of air. The density and the appearance of this collection suggestive of abscess formation. The collection is seen anterior to the right parotid gland and extending medially to the posterior right oral cavity. [id number] right maxillary sinus mucosal thickening and small air-fluid level. Partial opacification of both mastoids suggestive of mastoiditis. ID on consult: Dr Obrien. Recommended IV abx 6 wks total ( # Day ) OMFS Dr. Ambrose consulted and patient underwent Incision and drainage on 06/09 pathology report showed inflammatory cells, no malignancy Nuclear Bone Scan suggestive of osteomyelitis Tunneled central line placed for prison IV antibiotics- this will need to be d/c by IR after IV abx treatment is completed ( as discussed with Dr Gunter - pt was informed of need to see IR after abx tx) Antibiotics changed : now on Zyvox , Zosyn, Meropenem and Fluconazole Pt underwent drainage of facial collection by IR on 06/24 and 24 ml yellow fluid obtained- c/s : VRE and [facility] ENT eval with Dr. Priest appreciated. He recommends maxillofacial evaluation for dental abscess , not parotitis. Dr Ambrose re consulted -awaiting re eval Patient may need drainage of abscess again Repeat maxillofacial CT performed yesterday showed walled abscess/ fluid collection For OR today with drain placement to right facial abscess . Keep NPO. Hold lovenox 4. Bilateral LE edema sec to CHF exacerbation with diastolic dysfxn still with LE edema bilateral 2 + diuresing well Echo showed EF 40-45 % and dilated RV continue fluid restriction Promote ambulation 5. Hypokalemia multifactorial diuretic induced , Albuterol, Hypothyroidism and GI loss ( had 5 BM ) off Lasix Continue KCl runs and PO replacement as needed Nephro consult appreciated CT of abd showed no adrenal mass Check 24 hour urine Mg and calcium 6 .Hyponatremia, resolved most likely secondary to solute depletion and infection Continue fluid restriction 7.Hx breast ca, bilateral stable, s/p bilateral mastectomy continue arimidex 8. Tachycardia -- multifactorial Hx of HTN was on verapamil at home ( 80mg tid) but decreased dose due to low BP and now discontinued as may contribute to leg edema continue monitoring 9. Hypothyroidism patient has history of hyperthyroidism and was on Methimazole but had developed hypothyroidism so Methimazole was d/c and she was started on Po levothyroxine- At present TSH 0.25 so Methimazole 5 mg po bid restarted as discussed with Dr Vu d/c levothyroxine 10. Anemia, chronic dis monitor anemia work up showed depleted iron stores Venofer IV given s/p 2 units PRBC transfusion 11. Right cephalic vein thrombosis ( superficial vein) lovenox on ho;ld today for drain placement 12.DVT ppx on lovenox
--- NOTE | 2016-07-06 09:59 | CP.CCUPN ---
CCU Subjective - Physician Review Events Since Last Encounter (Free Text): 07/06/16 The Patient was seen and examined at the bedside, Medical records reviewed, all clinical/lab/hemodynamic/radiographic data were reviewed and management issues were discussed and formulated, 66 Y/O F with PMHx of HTN, History of Hyperthyroidism (on Methimazole), H/O Hypothyroidism, severe COPD, Gall Bladder Disease and bilateral breast Cancer with bone mets to shoulder (s/p humerus resection, Humeral prosthesis placement and removal) S/p chemo/XRT 8 years ago Who initially presented to the Emergency department on 06/03 with complaints of bilateral leg swelling and weakness. x2 week. 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 06/18, Patient was transferred from Telemetry unit to ICU for close monitoring due to worsening respiratory status, more dyspnea and increased work of breathing despite being started on HFNC at FIO2 of 28% oxygen and 35 LPM flow Patient currently managed with Diuresis, IV Zosyn, Zyvox (added for VRE from facial mass), Diflucan and Meropenem This morning Patient awake, oriented x 3, Comfortable, NAD, Pain well controlled , Saturating well, still requiring HFNC with less FIO2 No CP, Less SOB, no fever/chills On O2 supplement with High flow at FIO2 of 25% oxygen and 25 LPM flow Off BIPAP , no pressors Afebrile NPO, scheduled for OR today. 07/06/16 16:30 Patient returned from OR, orally intubated, S/p drainage of right maxillary seroma Vs abscess Full vent support for tonight Bronch in AM follow up labs, CXR, ABG . CCU Objective - Vital Signs / Intake & Output Vital Signs (Last 4 hours): Vital Signs Temp Pulse Resp BP Pulse Ox 07/06/16 08:19 20 07/06/16 08:00 98.7 F 106 H 17 112/73 100 07/06/16 06:00 106 H 20 100/63 100 Intake and Output (Last 8hrs): Intake & Output 07/05/16 07/06/16 07/06/16 22:59 06:59 14:59 Intake Total 860 310 Output Total 800 1200 Balance 60 -890 Intake: IV 210 Intake, Piggyback 500 100 Oral 360 Output: Urine 800 1200 Urethral (Gutierrez) 800 1200 - Physical Exam Head: Positive for: Atraumatic, Tenderness, Swelling. Negative for: Ecchymosis Pupils: Positive for: PERRL. Negative for: Sluggish, Non-Reactive Extroacular Muscles: Positive for: EOMI. Negative for: Gaze Palsy, Entrapment Conjunctiva: Positive for: Normal Mouth: Positive for: Moist Mucous Membranes Pharnyx: Positive for: Normal Nose (External): Positive for: Atraumatic Nose (Internal): Positive for: Normal Inspection Neck: Positive for: Normal Range of Motion, Trachea Midline. Negative for: Meningeal Signs, MIDLINE TENDERNESS, Paraspinal Tenderness, JVD, Lymphadenopathy , Bruit, Other Respiratory/Chest: Positive for: Good Air Exchange, Decreased Breath Sounds, Rhonchi. Negative for: Respiratory Distress, Accessory Muscle Use Cardiovascular: Positive for: Regular Rate and Rhythm, Normal S1, S2, Peripheal Pulses Present, Tachycardic. Negative for: Murmurs, Irregular Rhythm Abdomen: Positive for: Normal Bowel Sounds. Negative for: Tenderness, Distention Upper Extremity: Positive for: Normal Inspection, NORMAL PULSES, Capillary Refill < 2s, Other (Rt arm swelling). Negative for: Cyanosis, Edema, Tenderness Lower Extremity: Positive for: Edema, NORMAL PULSES. Negative for: CALF TENDERNESS Neurological: Positive for: GCS=15, Speech Normal Skin: Positive for: Warm, Dry Psychiatric: Positive for: Other (Patient sedated and orally intubated) - Medications Active Medications: Active Medications Generic Name Dose Route Start Last Admin Trade Name Freq PRN Reason Stop Dose Admin Acetaminophen 650 mg 06/11/16 21:34 06/28/16 01:46 Tylenol 325mg Tab PO 650 mg Q6 PRN Administration Pain, moderate (4-7) Albuterol Sulfate 2.5 mg 06/07/16 09:55 07/01/16 07:45 Albuterol 0.083% Inhal Aby (2.5 Mg/3 Ml) Ud INH 2.5 mg RQ4 PRN Administration Shortness of Breath Albuterol/Ipratropium 3 ml 06/11/16 12:00 07/06/16 08:17 Duoneb 3 Mg/0.5 Mg (3 Ml) Ud INH 3 ml RQID ANDREAS Administration Alprazolam 0.25 mg 07/03/16 10:25 07/04/16 21:34 Xanax PO 07/10/16 10:26 0.25 mg Q12 PRN Administration Anxiety Anastrozole 1 mg 06/04/16 09:00 07/05/16 08:19 Arimidex 1 Mg Tab PO 1 mg DAILY ANDREAS Administration Baclofen 10 mg 06/04/16 22:00 07/05/16 22:16 Lioresal PO 10 mg HS ANDREAS Administration Gabapentin 600 mg 06/24/16 22:00 07/06/16 06:48 Neurontin PO Not Given Q8H ANDREAS Guaifenesin 600 mg 06/25/16 21:00 07/05/16 20:40 Mucinex La PO 600 mg Q12 ANDREAS Administration Meropenem 1 gm/ Sodium 100 mls @ 100 mls/hr 06/19/16 08:00 07/06/16 08:34 Chloride IVPB 100 mls/hr Q12@0800,2000 ANDREAS Administration Piperacillin Sod/Tazobactam 100 mls @ 100 mls/hr 06/24/16 17:00 07/06/16 00:25 Sod 3.375 gm/ Sodium Chloride IVPB 100 mls/hr Q8 ANDREAS Administration Linezolid 300 mls @ 300 mls/hr 06/27/16 21:00 07/06/16 08:35 Zyvox 600mg/300ml D5w IVPB 300 mls/hr Q12 ANDREAS Administration Fluconazole 100 mls @ 100 mls/hr 06/29/16 09:00 07/06/16 08:34 Diflucan Iv 200 Mg/100 Ml Ns IVPB 100 mls/hr DAILY ANDREAS Administration Hydrocortisone Sodium 100 mls @ 100 mls/hr 07/05/16 08:51 07/06/16 08:33 Succinate 50 mg/ Sodium IV 100 mls/hr Chloride DAILY ANDREAS Administration Lactobacillus Acidophilus 1 cap 06/04/16 17:00 07/05/16 16:05 Bacid Acidophilus PO 1 cap BID ANDREAS Administration Loperamide HCl 2 mg 06/28/16 11:47 07/03/16 16:23 Imodium PO 2 mg QID PRN Administration Loose stools Methimazole 5 mg 07/01/16 17:00 07/05/16 16:07 Tapazole PO 5 mg BID ANDREAS Administration Morphine Sulfate 2 mg 07/01/16 17:40 07/06/16 01:19 Morphine IVP 2 mg Q4 PRN Administration Pain, moderate (4-7) Multi-Ingredient Cream 1 applic 06/07/16 10:00 07/05/16 16:21 Hydrocerin Cream TOP 1 applic BID ANDREAS Administration Multivitamins/Minerals 1 tab 06/04/16 09:00 07/05/16 08:17 Therapeutic-M Tab PO 1 tab DAILY ANDREAS Administration Nitroglycerin 1 in 07/01/16 22:00 07/06/16 06:48 Nitro-Bid 2% Oint TOP Not Given Q6 ANDREAS Oxycodone/Acetaminophen 1 tab 07/04/16 18:48 07/04/16 18:56 Percocet 5/325 Mg Tab PO 07/07/16 18:49 1 tab Q6 PRN Administration Pain, moderate (4-7) Pantoprazole Sodium 40 mg 06/04/16 09:00 07/05/16 08:17 Protonix Ec Tab PO 40 mg DAILY ANDREAS Administration Roflumilast 500 mcg 07/01/16 09:00 07/05/16 08:17 Daliresp PO 500 mcg DAILY ANDREAS Administration Spironolactone 25 mg 07/01/16 09:00 07/05/16 08:17 Aldactone PO 25 mg DAILY ANDREAS Administration Zolpidem Tartrate 5 mg 06/14/16 22:14 07/02/16 22:31 Ambien PO 5 mg HS PRN Administration Sleep - Patient Studies Lab Studies: Lab Studies 07/06/16 Range/Units 04:40 WBC 10.0 (4.8-10.8) K/uL RBC 3.99 (3.80-5.20) Mil/uL Hgb 10.5 L (12.0-16.0) g/dL Hct 34.0 (34.0-47.0) % MCV 85.3 (81.0-99.0) fl MCH 26.3 L (27.0-31.0) pg MCHC 30.9 L (33.0-37.0) g/dL RDW 32.0 H (11.5-14.5) % Plt Count 179 (130-400) K/uL Sodium 140 (132-148) mmol/l Potassium 3.7 (3.6-5.0) MMOL/L Chloride 100 (98-107) mmol/L Carbon Dioxide 35 H (22-30) mmol/L Anion Gap 9 L (10-20) BUN 13 (7-17) mg/dl Creatinine 0.5 L (0.7-1.2) mg/dL Est GFR ( Amer) > 60 Est GFR (Non-Af Amer) > 60 Random Glucose 78 (65-105) mg/dL Calcium 8.3 L (8.4-10.2) mg/dL Laboratory Results - last 24 hr 07/06/16 04:40 WBC 10.0 RBC 3.99 Hgb 10.5 L Hct 34.0 MCV 85.3 MCH 26.3 L MCHC 30.9 L RDW 32.0 H Plt Count 179 Sodium 140 Potassium 3.7 Chloride 100 Carbon Dioxide 35 H Anion Gap 9 L BUN 13 Creatinine 0.5 L Est GFR ( Amer) > 60 Est GFR (Non-Af Amer) > 60 Random Glucose 78 Calcium 8.3 L Review of Systems - Review of Systems Systems not reviewed;Unavailable: Intubated Critical Care Progress Note - Nutrition Nutrition: Nutrition Category Date Time Status NPO Diet [DIET] Diets 07/06/16 Breakfast Active Assessment/Plan (1) Acute and chronic respiratory failure with hypercapnia Current Visit: Yes Status: Acute Comment: Continue Duonebs, HFNC, Theophylline, Diuresis (2) Acute exacerbation of CHF (congestive heart failure) Current Visit: Yes Status: Acute Comment: Echo 06/14: The systolic function is moderately impaired, EF 40-45 % and dilated RV with mild/mod deccrease RV function, diastolic inflow pattern is restrictive Diuresis, strict I&Os, daily Wt (3) Acute bronchitis with chronic obstructive pulmonary disease (COPD) Current Visit: No Status: Acute Priority: High Comment: Continue Duonebs INH RQID ANDREAS, Suplemental O2 Via HFNC Methylprednisone IV 40mg q 24 tapered by Pulm Theophylline Acapella therapy (4) Osteomyelitis of mandible Current Visit: Yes Status: Acute Comment: Continue IV antibiotics as per ID Pain control with Percocet (5) Hx of breast cancer Current Visit: No Status: Chronic Priority: Low Comment: S/p bilateral mastectomy Continue Arimidex 1mg PO daily
--- NOTE | 2016-07-06 10:50 | CP.PCM.PN ---
Subjective - Date & Time of Evaluation Date of Evaluation: 07/06/16 Time of Evaluation: 10:47 - Subjective Subjective: Pt's cbc is stable . She is going to have an I&D today of the right maxillary abscess. Pt's breathing is a lot better. Objective - Vital Signs/Intake and Output Vital Signs (last 24 hours): Temp Pulse Resp BP Pulse Ox 98.7 F 106 H 20 112/73 100 07/06/16 08:00 07/06/16 08:00 07/06/16 08:19 07/06/16 08:00 07/06/16 08:00 Intake and Output: 07/06/16 07/06/16 06:59 18:59 Intake Total 830 Output Total 1200 Balance -370 - Medications Medications: Current Medications Acetaminophen (Tylenol 325mg Tab) 650 mg PO Q6 PRN PRN Reason: Pain, moderate (4-7) Last Admin: 06/28/16 01:46 Dose: 650 mg Albuterol Sulfate (Albuterol 0.083% Inhal Aby (2.5 Mg/3 Ml) Ud) 2.5 mg INH RQ4 PRN PRN Reason: Shortness of Breath Last Admin: 07/01/16 07:45 Dose: 2.5 mg Albuterol/Ipratropium (Duoneb 3 Mg/0.5 Mg (3 Ml) Ud) 3 ml INH RQID ANDREAS Last Admin: 07/06/16 08:17 Dose: 3 ml Alprazolam (Xanax) 0.25 mg PO Q12 PRN PRN Reason: Anxiety Stop: 07/10/16 10:26 Last Admin: 07/04/16 21:34 Dose: 0.25 mg Anastrozole (Arimidex 1 Mg Tab) 1 mg PO DAILY [facility] Last Admin: 07/05/16 08:19 Dose: 1 mg Baclofen (Lioresal) 10 mg PO HS [facility] Last Admin: 07/05/16 22:16 Dose: 10 mg Gabapentin (Neurontin) 600 mg PO Q8H [facility] Last Admin: 07/06/16 06:48 Dose: Not Given Guaifenesin (Mucinex La) 600 mg PO Q12 [facility] Last Admin: 07/05/16 20:40 Dose: 600 mg Meropenem 1 gm/ Sodium (Chloride) 100 mls @ 100 mls/hr IVPB Q12@0800,2000 [facility] Last Admin: 07/06/16 08:34 Dose: 100 mls/hr Piperacillin Sod/Tazobactam (Sod 3.375 gm/ Sodium Chloride) 100 mls @ 100 mls/ hr IVPB Q8 [facility] Last Admin: 07/06/16 00:25 Dose: 100 mls/hr Linezolid (Zyvox 600mg/300ml D5w) 300 mls @ 300 mls/hr IVPB Q12 [facility] Last Admin: 07/06/16 08:35 Dose: 300 mls/hr Fluconazole (Diflucan Iv 200 Mg/100 Ml Ns) 100 mls @ 100 mls/hr IVPB DAILY [facility] Last Admin: 07/06/16 08:34 Dose: 100 mls/hr Hydrocortisone Sodium Succinate 50 mg/ Sodium Chloride 100 mls @ 100 mls/hr IV DAILY [facility] Last Admin: 07/06/16 08:33 Dose: 100 mls/hr Lactobacillus Acidophilus (Bacid Acidophilus) 1 cap PO BID [facility] Last Admin: 07/05/16 16:05 Dose: 1 cap Loperamide HCl (Imodium) 2 mg PO QID PRN PRN Reason: Loose stools Last Admin: 07/03/16 16:23 Dose: 2 mg Methimazole (Tapazole) 5 mg PO BID [facility] Last Admin: 07/05/16 16:07 Dose: 5 mg Morphine Sulfate (Morphine) 2 mg IVP Q4 PRN PRN Reason: Pain, moderate (4-7) Last Admin: 07/06/16 01:19 Dose: 2 mg Multi-Ingredient Cream (Hydrocerin Cream) 1 applic TOP BID [facility] Last Admin: 07/05/16 16:21 Dose: 1 applic Multivitamins/Minerals (Therapeutic-M Tab) 1 tab PO DAILY [facility] Last Admin: 07/05/16 08:17 Dose: 1 tab Nitroglycerin (Nitro-Bid 2% Oint) 1 in TOP Q6 [facility] Last Admin: 07/06/16 06:48 Dose: Not Given Oxycodone/Acetaminophen (Percocet 5/325 Mg Tab) 1 tab PO Q6 PRN PRN Reason: Pain, moderate (4-7) Stop: 07/07/16 18:49 Last Admin: 07/04/16 18:56 Dose: 1 tab Pantoprazole Sodium (Protonix Ec Tab) 40 mg PO DAILY [facility] Last Admin: 07/05/16 08:17 Dose: 40 mg Roflumilast (Daliresp) 500 mcg PO DAILY [facility] Last Admin: 07/05/16 08:17 Dose: 500 mcg Spironolactone (Aldactone) 25 mg PO DAILY [facility] Last Admin: 07/05/16 08:17 Dose: 25 mg Zolpidem Tartrate (Ambien) 5 mg PO HS PRN PRN Reason: Sleep Last Admin: 07/02/16 22:31 Dose: 5 mg - Labs Labs: 07/06/16 04:40 07/06/16 04:40 PT 11.0 SECONDS (9.6-11.2) 06/09/16 04:10 INR 1.06 (0.92-1.08) 06/09/16 04:10 APTT 27.5 SECONDS (23.3-32.5) 06/03/16 22:33
[2016-07-06] MEDS ORDERED: Propofol 10 mg/ml Inj (20 ML) ONE (11:54)
[2016-07-06] MEDS ORDERED: Lidocaine 4% (Laryng-O-Jet) Kit MM ONE (11:54)
[2016-07-06] MEDS ORDERED: Midazolam 2 MG/2 ML VIAL ONE ×2 (11:54→13:12)
[2016-07-06] MEDS ORDERED: Etomidate 20 mg/10ml Inj IV ONE (11:54)
[2016-07-06] MEDS ORDERED: Albuterol 0.083% Inhal Sol (2.5 mg/3 mL) UD INH PRN (11:55)
[2016-07-06] MEDS ORDERED: Oxycodone/Acetaminophen 5/325 mg Tab PO PRN (11:55)
[2016-07-06] MEDS ORDERED: Lactated Ringer's 1,000 ML IV ONE (12:10)
--- NOTE | 2016-07-06 12:40 | CT ---
PROCEDURE: CT MAXILLOFACIAL BONES WITH CONTRAST HISTORY: Facial abscess COMPARISON: None. TECHNIQUE: Contiguous axial CT images of the maxillofacial bones were obtained following administration of IV contrast. Coronal and sagittal reformats were generated. Intravenous contrast Dose: 100 mL Omnipaque 300 Radiation dose: Total exam DLP = 886.90 mGy-cm. FINDINGS: There is a 5.7 x 3.2 x 6.6 cm subcutaneous low-attenuation mass with rim enhancement lateral to the ramus of the in the superficial diesel engine specialist space also extending into the deep space. The component in the deep diesel engine specialist space measures 1.1 x 1.8 cm. There is a small reactive right submandibular lymph node. The parotid and submandibular glands are normal. NASAL BONES: Unremarkable. ORBITS: Unremarkable. PARANASAL SINUSES/ MASTOIDS: Clear. MAXILLA: Unremarkable. MANDIBLE/ TEMPOROMANDIBULAR JOINTS: Unremarkable. SKULL BASE: Unremarkable. TEMPORAL BONES: Middle ears and mastoid grossly unremarkable. OTHER FINDINGS: None. IMPRESSION: Findings are consistent with a large abscess in the superficial diesel engine specialist space with a smaller component extending into the deep diesel engine specialist space. Small reactive right submandibular lymph node.
[2016-07-06] MEDS ORDERED: Lidocaine 1% w Epi 1:100,000 Inj INJ ONE ×2 (12:55)
[2016-07-06] MEDS ORDERED: DiphenhydrAMINE 50 mg/ml Inj IVP PRN (13:37)
[2016-07-06] MEDS ORDERED: HYDROmorphone 0.5 mg/0.5 ml ISec IVP PRN (13:37)
[2016-07-06] MEDS ORDERED: Dextrose 5%/0.45% NS 1,000 ML IV SCH (14:00)
[2016-07-06] MEDS ORDERED: Sodium Chloride 0.9% 500 ML IV ONE (14:30)
[2016-07-06] MEDS: Fentanyl Citrate 2,500 MCG in Dextrose 5% In Water 200 ML IV SCH (15:48)
[2016-07-06] MEDS: guaiFENesin 600 mg ER Tab PO SCH (20:57)
[2016-07-07] MEDS: Piperacillin/Tazobact 3.375 GM in Sodium Chloride 0.9% 100 ML IVPB SCH ×3 (00:13→10:52)
[2016-07-07] MEDS: Nitroglycerin 2% 1GM UD TOP SCH ×3 (03:16→16:38)
[2016-07-07 05:24] LABS: HEMATOCRIT 32.9 % (34.0-47.0); MEAN CELL VOLUME 85.3 fl (81.0-99.0); MEAN CORPUSCULAR HGB CONC 30.5 g/dL (33.0-37.0); RED CELL DISTRIBUTION WIDTH 32.3 % (11.5-14.5); WHITE BLOOD COUNT 10.1 K/uL (4.8-10.8)
[2016-07-07 05:34] LABS: BLOOD UREA NITROGEN 10 mg/dl (7-17); CALCIUM 7.9 mg/dL (8.4-10.2); CARBON DIOXIDE 32 mmol/L (22-30); CHLORIDE 99 mmol/L (98-107); GFR AFRICAN-AMERICAN > 60; GLUCOSE,RANDOM 76 mg/dL (65-105); POTASSIUM 3.2 MMOL/L (3.6-5.0); SODIUM 138 mmol/l (132-148)
[2016-07-07 06:06] LABS: ABG ALLEN TEST YES; ABG MECHANICAL RATE 14; ARTERIAL BLOOD GAS HCO3 31.9 mmol/L (21-28); ARTERIAL BLOOD GAS MODE A/C; ARTERIAL BLOOD GAS O2 CAPACITY 14.6 mL/dL (16-24); ARTERIAL BLOOD GAS O2 CONTENT 14.6 ML/dL (15-23); ARTERIAL BLOOD GAS PH 7.51 (7.35-7.45); ARTERIAL BLOOD GAS PO2 232 mm/Hg (80-100); ARTERIAL BLOOD HGB O2 SAT 97.6 % (95.0-98.0); CARBOXYHEMOGLOBIN 1.6 % (0.5-1.5); HHB 0.1 % (0.0-5.0); METHEMOGLOBIN 0.6 % (0.0-3.0)
[2016-07-07 07:02] LABS: THYROID STIMULATING HORMONE 1.89 mIU/ML (0.46-4.68)
--- NOTE | 2016-07-07 08:07 | PN ---
DATE: 07/06/2016 LOCATION: ICU, room 434, SUBJECTIVE: This is a 66-year-old female with overt congestive heart disease and underlying acute ex acerbation of COPD now being ____. She is clinically euthyroid ____ of early overt hyperthyroidism a s noted thereof. Her latest chemistry showed a BUN of 50, sodium 140, potassium 3.7, chloride 100, C O2 35, glucose 78 and creatinine 0.9. ____ thyroid ____ showed T4 of 4.81 and a TSH of 0.25 and tota l T4 of 0.73. So, at this time, we will continue the same medical therapy of her thyroid condition a t this time as ordered ____ with Tapazole given as 5 mg p.o. b.i.d. as ordered. ____. Polly Vu MD cc: [id number] TT: 07/06/2016 15:08:38 Confirmation # [id number] Dictation # [id number] tn
--- NOTE | 2016-07-07 08:11 | PN ---
DATE: 07/06/2016 The patient is located in room 434, bed 1. REQUESTED BY: Dr. Pimentel . REASON FOR FOLLOWUP: Hypokalemia and metabolic alkalosis. The patient is a 66-year-old elderly female with a history of hypertension, CHF, and hypoth yroidism, and bilateral shoulder surgeries, and also breast CA status post surgery, status post chemo radiation therapy, who was admitted with right-sided facial swelling and found to have osteomyelitis of the mandible. The patient is on IV antibiotics, and also got on and off diarrhea, and chest disco mfort. The patient is feeling slightly better today; not in acute distress. Less diarrhea today. N o chest pain, no palpitation. No edema of the legs. No urinary symptoms. VITAL SIGNS FOLLOWS: Blood pressure this morning 112/73, pulse 106, respirations about 17, temper ature 98.7, saturation 100%. Height 5 feet 2 inches, and weight is 129 pounds. HENT AND PHYSICAL EXAMINATION: The patient is a 66-year-old elderly female, moderately built, modera tely nourished, not in any distress. HENT: Pupils normal, reactive to light and accommodation. Conjunctivae pink, sclerae anicteric. To ngue is moist. Trachea is midline. LUNGS: Symmetric on both sides. Bilateral breath sounds present. No crackles. CARDIOVASCULAR SYSTEM: [place] at the fifth intercostal space midclavicular line. S1 and S2 audible. No murmur or gallop. Occasional irregularly irregular. ABDOMEN: Normal in appearance, soft, tympanic. No guarding, no rigidity, no hepatosplenomegaly. CENTRAL NERVOUS SYSTEM: The patient is alert, awake, oriented x 3. Nonfocal on examination. EXTREMITIES: No cyanosis, no clubbing, no edema on both lower extremities. The patient has swelling of the right upper extremity status post right shoulder and humeral surgery. CURRENT MEDICATIONS: Include albuterol inhaler, Aldactone 25 mg p.o. daily, and Arimidex 1 mg p.o. d aily, Ativan 1 mg p.o. q. 4 hours, lactobacillus 1 capsule p.o. b.i.d., D5 half-normal saline at 42 m L per hour, and Diflucan 100 mg daily, and DuoNeb inhaler, and Hydrocerin cream topical, and also hyd rocortisone 50 mg daily, and Imodium 2 mg p.o. q.i.d. p.r.n., and meropenem 1 g q. 12 hours, and morp emily 2 mg IV q. 4 hours p.r.n., Mucinex, and Neurontin, Nitro-Bid ointment 1 inch topically q. 6 hour s, and Percocet 1 tablet q. 6 hours p.r.n., and Zosyn, Protonix, and methimazole 5 mg p.o. b.i.d., mu ltivitamins, Tylenol, and Xanax 0.5 mg p.o. q. 12 hours, and Zyvox 600 mg q. 12 hours. LABORATORY DATA: This morning includes as follows: WBC 10, hemoglobin 10.5, hematocrit is 34, plate lets 179. Sodium 140, potassium 3.7, chloride 100, CO2 of 35, BUN 13, creatinine 0.5, glucose 78, ca lcium 8.3. CT scan of the maxillofacial. CT scan impression: There is 5.7 x 3.2 cm x 6.6 cm subcutaneous low a ttenuation mass within the enhancement lateral to the ramus in the superficial line producer space, also extending into the deep space. The component in the deep mastoids space measures 1.1 cm x 1.8 cm. There is a small reactive right submandibular lymph node. Impression: Findings are cons istent with large abscess in the superficial line producer space with a small component extending into t he deep line producer space, a small reactive right submandibular lymph node. In summary, the patient is a 66-year-old elderly female with a history of hypertension, hyp othyroidism, diarrhea, and right facial swelling and being treated for osteomyelitis of the mandible, and low potassium and high bicarbonate. 1. Status post hypokalemia. Potassium today is within normal limits. Continue to monitor the potass ium. 2. Metabolic alkalosis, most likely secondary to intravascular volume depletion. 3. Right facial swelling secondary to abscess. Continue antibiotics. Continue to follow with oral s urgery. Will follow with you. Thank you for allowing me to participate in your patient's care, and will give KCl 40 mEq p.o. x 1 dose this morning. Randall Lerma MD cc: [id number] TT: 07/06/2016 22:51:01 Confirmation # [id number] Dictation # [id number] jn
[2016-07-07] MEDS: Albuterol-Ipratrop 3 mg / 0.5 (3 ml) UD INH SCH ×4 (08:14→18:59)
[2016-07-07] MEDS: Fentanyl Citrate 2,500 MCG in Dextrose 5% In Water 200 ML IV SCH (09:14)
--- NOTE | 2016-07-07 09:42 | CP.CCUPN ---
CCU Subjective - Physician Review Subjective (Free Text): 07/07/16 11:35 Pt is examined at bedside in the ICU, and she states that she is both doing and feeling better than previously. She denies any overnight events or problems, as she remained intubated this morning for bronchoscopy, but has since been extubated. Denies any acute respiratory issues since previously stated extubation. She also denies any f/c/n/v/d, chest pain, SOB, dyspnea, abdominal pain, or myalgias. CCU Objective - Vital Signs / Intake & Output Vital Signs (Last 4 hours): Vital Signs Temp Pulse Resp BP Pulse Ox 07/07/16 08:00 98 F 104 H 16 116/71 91 L 07/07/16 05:44 91 H 14 98/61 L 100 Intake and Output (Last 8hrs): Intake & Output 07/06/16 07/07/16 07/07/16 22:59 06:59 14:59 Intake Total 770 588 Output Total 400 600 Balance 370 -12 Weight 130 lb Intake: IV 370 488 Intake, Piggyback 400 100 Oral 0 Output: Urine 400 600 Urethral (Gutierrez) 400 600 Other: # Bowel Movements 0 1 - Physical Exam Head: Positive for: Atraumatic, Tenderness, Swelling. Negative for: Ecchymosis Pupils: Positive for: PERRL. Negative for: Sluggish, Non-Reactive Extroacular Muscles: Positive for: EOMI. Negative for: Gaze Palsy, Entrapment Conjunctiva: Positive for: Normal Mouth: Positive for: Moist Mucous Membranes Pharnyx: Positive for: Normal Neck: Positive for: Normal Range of Motion, Trachea Midline. Negative for: Meningeal Signs, MIDLINE TENDERNESS, Paraspinal Tenderness, JVD, Lymphadenopathy , Bruit, Other Respiratory/Chest: Positive for: Good Air Exchange, Decreased Breath Sounds, Rhonchi (minimally appreciated lower lobes b/l). Negative for: Respiratory Distress, Accessory Muscle Use Cardiovascular: Positive for: Regular Rate and Rhythm, Normal S1, S2, Peripheal Pulses Present, Tachycardic. Negative for: Murmurs, Irregular Rhythm Abdomen: Positive for: Normal Bowel Sounds. Negative for: Tenderness, Distention Upper Extremity: Positive for: NORMAL PULSES, Capillary Refill < 2s, Other (L arm presents w/o edema, normal pulses; Rt arm edema). Negative for: Cyanosis, Edema, Tenderness Lower Extremity: Positive for: Edema, NORMAL PULSES. Negative for: CALF TENDERNESS Neurological: Positive for: GCS=15, Speech Normal Skin: Positive for: Warm, Dry Psychiatric: Positive for: Alert, Oriented x 3 - Medications Active Medications: Active Medications Generic Name Dose Route Start Last Admin Trade Name Freq PRN Reason Stop Dose Admin Acetaminophen 650 mg 07/06/16 11:55 Tylenol 325mg Tab PO Q6 PRN Pain, moderate (4-7) Albuterol Sulfate 2.5 mg 07/06/16 11:55 Albuterol 0.083% Inhal Aby (2.5 Mg/3 Ml) Ud INH RQ4 PRN Shortness of Breath Albuterol/Ipratropium 3 ml 07/06/16 12:00 07/07/16 08:14 Duoneb 3 Mg/0.5 Mg (3 Ml) Ud INH 3 ml RQID [facility] Administration Alprazolam 0.25 mg 07/06/16 11:55 Xanax PO 07/10/16 10:26 Q12 PRN Anxiety Anastrozole 1 mg 07/07/16 09:00 Arimidex 1 Mg Tab PO DAILY [facility] Baclofen 10 mg 07/06/16 22:00 07/07/16 00:10 Lioresal PO Not Given HS [facility] Gabapentin 600 mg 07/06/16 17:00 07/07/16 00:11 Neurontin PO Not Given Q8 [facility] Guaifenesin 600 mg 07/06/16 21:00 07/06/16 20:57 Mucinex La PO Not Given Q12 [facility] Fluconazole 100 mls @ 100 mls/hr 07/07/16 09:00 Diflucan Iv 200 Mg/100 Ml Ns IVPB DAILY [facility] Hydrocortisone Sodium 100 mls @ 100 mls/hr 07/07/16 09:00 Succinate 50 mg/ Sodium IV Chloride DAILY [facility] Piperacillin Sod/Tazobactam 100 mls @ 100 mls/hr 07/06/16 17:00 07/07/16 00:13 Sod 3.375 gm/ Sodium Chloride IVPB 100 mls/hr Q8 [facility] Administration Linezolid 300 mls @ 300 mls/hr 07/06/16 21:00 07/06/16 21:13 Zyvox 600mg/300ml D5w IVPB 300 mls/hr Q12 [facility] Administration Meropenem 1 gm/ Sodium 100 mls @ 100 mls/hr 07/06/16 20:00 07/06/16 20:50 Chloride IVPB 100 mls/hr Q12@0800,2000 [facility] Administration Dextrose/Sodium Chloride 1,000 mls @ 42 mls/hr 07/06/16 14:00 Dextrose 5%/0.45% Ns 1000 Ml IV 07/07/16 14:01 .[id number] [facility] Fentanyl Citrate 2,500 mcg/ 250 mls @ 11.7 mls/hr 07/06/16 15:15 07/07/16 09:14 Dextrose IV 11.7 mls/hr .[id number] [facility] Administration Protocol 2 MCG/KG/HR Lactobacillus Acidophilus 1 cap 07/06/16 17:00 Bacid Acidophilus PO BID [facility] Loperamide HCl 2 mg 07/06/16 11:55 Imodium PO QID PRN Loose stools Lorazepam 1 mg 07/06/16 15:09 Ativan IVP Q4H PRN Agitation Methimazole 5 mg 07/06/16 17:00 Tapazole PO BID [facility] Morphine Sulfate 2 mg 07/06/16 11:55 07/06/16 14:15 Morphine IVP 2 mg Q4 PRN Administration Pain, moderate (4-7) Multi-Ingredient Cream 1 applic 07/06/16 17:00 Hydrocerin Cream TOP BID [facility] Multivitamins/Minerals 1 tab 07/07/16 09:00 Therapeutic-M Tab PO DAILY [facility] Nitroglycerin 1 in 07/06/16 16:00 07/07/16 03:16 Nitro-Bid 2% Oint TOP Not Given Q6 [facility] Oxycodone/Acetaminophen 1 tab 07/06/16 11:55 Percocet 5/325 Mg Tab PO 07/07/16 18:49 Q6 PRN Pain, moderate (4-7) Pantoprazole Sodium 40 mg 07/07/16 09:00 Protonix Ec Tab PO DAILY [facility] Roflumilast 500 mcg 07/07/16 09:00 Daliresp PO DAILY [facility] Spironolactone 25 mg 07/07/16 09:00 Aldactone PO DAILY [facility] Zolpidem Tartrate 5 mg 07/06/16 11:55 Ambien PO HS PRN Sleep - Patient Studies Lab Studies: Lab Studies 07/07/16 07/07/16 Range/Units 05:40 04:35 WBC 10.1 (4.8-10.8) K/uL RBC 3.85 (3.80-5.20) Mil/uL Hgb 10.0 L (12.0-16.0) g/dL Hct 32.9 L (34.0-47.0) % MCV 85.3 (81.0-99.0) fl MCH 26.0 L (27.0-31.0) pg MCHC 30.5 L (33.0-37.0) g/dL RDW 32.3 H (11.5-14.5) % Plt Count 146 (130-400) K/uL pCO2 41 (35-45) mm/Hg pO2 232 H (80-100) mm/Hg HCO3 31.9 H (21-28) mmol/L ABG pH 7.51 H (7.35-7.45) ABG Total CO2 34.0 H (22-28) mmol/L ABG O2 Saturation 99.9 H (95-98) % ABG O2 Content 14.6 L (15-23) ML/dL ABG Base Excess 8.9 H (-2.0-3.0) mmol/L ABG Hemoglobin 10.2 L (11.7-17.4) g/dL ABG Carboxyhemoglobin 1.6 H (0.5-1.5) % POC ABG HHb (Measured) 0.1 (0.0-5.0) % ABG Methemoglobin 0.6 (0.0-3.0) % ABG O2 Capacity 14.6 L (16-24) mL/dL Tawanda Test Yes A-a O2 Difference 145.0 mm/Hg Hgb O2 Saturation 97.6 (95.0-98.0) % Vent Mode A/c Mechanical Rate 14 FiO2 60.0 % Tidal Volume 500 Crit Value Called By 333 Blood Gas Notified Time 600 Sodium 138 (132-148) mmol/l Potassium 3.2 L (3.6-5.0) MMOL/L Chloride 99 (98-107) mmol/L Carbon Dioxide 32 H (22-30) mmol/L Anion Gap 10 (10-20) BUN 10 (7-17) mg/dl Creatinine 0.4 L (0.7-1.2) mg/dL Est GFR ( Amer) > 60 Est GFR (Non-Af Amer) > 60 Random Glucose 76 (65-105) mg/dL Calcium 7.9 L (8.4-10.2) mg/dL TSH 3rd Generation 1.89 (0.46-4.68) mIU/ML Laboratory Results - last 24 hr 07/07/16 07/07/16 04:35 05:40 WBC 10.1 RBC 3.85 Hgb 10.0 L Hct 32.9 L MCV 85.3 MCH 26.0 L MCHC 30.5 L RDW 32.3 H Plt Count 146 pCO2 41 pO2 232 H HCO3 31.9 H ABG pH 7.51 H ABG Total CO2 34.0 H ABG O2 Saturation 99.9 H ABG O2 Content 14.6 L ABG Base Excess 8.9 H ABG Hemoglobin 10.2 L ABG Carboxyhemoglobin 1.6 H POC ABG HHb (Measured) 0.1 ABG Methemoglobin 0.6 ABG O2 Capacity 14.6 L Tawanda Test Yes A-a O2 Difference 145.0 Hgb O2 Saturation 97.6 Vent Mode A/c Mechanical Rate 14 FiO2 60.0 Tidal Volume 500 Crit Value Called By 333 Blood Gas Notified Time 600 Sodium 138 Potassium 3.2 L Chloride 99 Carbon Dioxide 32 H Anion Gap 10 BUN 10 Creatinine 0.4 L Est GFR ( Amer) > 60 Est GFR (Non-Af Amer) > 60 Random Glucose 76 Calcium 7.9 L TSH 3rd Generation 1.89 Review of Systems - Review of Systems Review of Systems: see HPI Critical Care Progress Note - Ventilator Checklist Head of Bed 30 Degrees: Yes Daily Sedation Vacation: No PUD Prophalyxis: Yes (protonix) DVT Prophylaxis: Yes (scd) - Nutrition Nutrition: Nutrition Category Date Time Status NPO Diet [DIET] Diets 07/06/16 Breakfast Active Assessment/Plan (1) VRE (vancomycin resistant enterococcus) culture positive Current Visit: Yes Status: Acute Comment: mandible osteomyelitis wound Cx+ resulted: VRE Zosyn 3.375g IVPB Q8H Meropenem 1g IVPB Q12H Zyvox 600mg IVPB Q12H Diflucan 200mg Daily (2) Acute bronchitis with chronic obstructive pulmonary disease (COPD) Current Visit: Yes Status: Acute Priority: High Comment: Previously intubated from yesterday to allow for bronch this AM Breath sounds much improved bilaterally Methylprednisone IV 50mg Q24 Will be extubated, placed on Venti Mask f/u respiratory function to ensure improvement (3) Hyperthyroidism Current Visit: No Status: Chronic Priority: High Comment: (4) Abscess Current Visit: Yes Status: Acute Priority: High
--- NOTE | 2016-07-07 09:43 | CP.PCM.PN ---
Subjective - Date & Time of Evaluation Date of Evaluation: 07/07/16 Time of Evaluation: 09:24 - Subjective Subjective: Bronchoscopy performed at bedside through the endotracheal tube. Patient maintained on mechanical ventilation at 50% oxygen and a special adapter was placed on the ETT to allow passage of a P40D Olympus flexible scope. 2% viscous xylocaine was injected into the swivel adapter to lubricate the ETT and anesthetize the airway. The distal trachea appeared grossly normal. The dnia was sharp. Modest erythema of the tracheo-bronchial mucosa was seen and noted to be in a linear distribution suggestive of suction trauma to the dina and both main bronchi. Of note was a significant amount of very thick florez secretions seen in the dependant regions of the distal airways bilaterally. Suction was applied first on the left to successfully remove these secretions which revealed normal appearing segmental bronchial orifices. The scope was then withdrawn to the level of the ETT adapter to allow the patient time to rest and insure adequate oxygenation. The scope was then advanced once again into the ETT and the airway , but directed now to the right main bronchus. The RUL was patent and clean. The RML and RLL segmental bronchi were also occluded with the same tenacious florez secretions which were again successfully lavaged and suctioned until the airway was cleared. Again normal appearing segmental orifices were seen post- suctioning. The scope was then withdrawn from the ETT completely and the patient was placed on CPAP/PS ventilation mode. Secretions had been collected in a suction trap and were sent to the laboratory for gram stain and culture. The procedure was tolerated well and weaning will continue with goal of extubation for today. Objective - Vital Signs/Intake and Output Vital Signs (last 24 hours): Temp Pulse Resp BP Pulse Ox 98 F 104 H 16 116/71 91 L 07/07/16 08:00 07/07/16 08:00 07/07/16 08:00 07/07/16 08:00 07/07/16 08:00 Intake and Output: 07/06/16 07/07/16 23:59 11:59 Intake Total 1570 588 Output Total 400 600 Balance 1170 -12 - Medications Medications: Current Medications Acetaminophen (Tylenol 325mg Tab) 650 mg PO Q6 PRN PRN Reason: Pain, moderate (4-7) Albuterol Sulfate (Albuterol 0.083% Inhal Aby (2.5 Mg/3 Ml) Ud) 2.5 mg INH RQ4 PRN PRN Reason: Shortness of Breath Albuterol/Ipratropium (Duoneb 3 Mg/0.5 Mg (3 Ml) Ud) 3 ml INH RQID [facility] Last Admin: 07/07/16 08:14 Dose: 3 ml Alprazolam (Xanax) 0.25 mg PO Q12 PRN PRN Reason: Anxiety Stop: 07/10/16 10:26 Anastrozole (Arimidex 1 Mg Tab) 1 mg PO DAILY [facility] Baclofen (Lioresal) 10 mg PO HS [facility] Last Admin: 07/07/16 00:10 Dose: Not Given Gabapentin (Neurontin) 600 mg PO Q8 [facility] Last Admin: 07/07/16 00:11 Dose: Not Given Guaifenesin (Mucinex La) 600 mg PO Q12 [facility] Last Admin: 07/06/16 20:57 Dose: Not Given Fluconazole (Diflucan Iv 200 Mg/100 Ml Ns) 100 mls @ 100 mls/hr IVPB DAILY [facility] Hydrocortisone Sodium Succinate 50 mg/ Sodium Chloride 100 mls @ 100 mls/hr IV DAILY [facility] Piperacillin Sod/Tazobactam (Sod 3.375 gm/ Sodium Chloride) 100 mls @ 100 mls/ hr IVPB Q8 [facility] Last Admin: 07/07/16 00:13 Dose: 100 mls/hr Linezolid (Zyvox 600mg/300ml D5w) 300 mls @ 300 mls/hr IVPB Q12 [facility] Last Admin: 07/06/16 21:13 Dose: 300 mls/hr Meropenem 1 gm/ Sodium (Chloride) 100 mls @ 100 mls/hr IVPB Q12@0800,2000 [facility] Last Admin: 07/06/16 20:50 Dose: 100 mls/hr Dextrose/Sodium Chloride (Dextrose 5%/0.45% Ns 1000 Ml) 1,000 mls @ 42 mls/hr IV .[id number] [facility] Stop: 07/07/16 14:01 Fentanyl Citrate 2,500 mcg/ (Dextrose) 250 mls @ 11.7 mls/hr IV .[id number] [facility]RE[facility]; 2 MCG/KG/HR PRN Reason: Protocol Last Admin: 07/07/16 09:14 Dose: 11.7 mls/hr Lactobacillus Acidophilus (Bacid Acidophilus) 1 cap PO BID [facility] Loperamide HCl (Imodium) 2 mg PO QID PRN PRN Reason: Loose stools Lorazepam (Ativan) 1 mg IVP Q4H PRN PRN Reason: Agitation Methimazole (Tapazole) 5 mg PO BID [facility] Morphine Sulfate (Morphine) 2 mg IVP Q4 PRN PRN Reason: Pain, moderate (4-7) Last Admin: 07/06/16 14:15 Dose: 2 mg Multi-Ingredient Cream (Hydrocerin Cream) 1 applic TOP BID [facility] Multivitamins/Minerals (Therapeutic-M Tab) 1 tab PO DAILY [facility] Nitroglycerin (Nitro-Bid 2% Oint) 1 in TOP Q6 [facility] Last Admin: 07/07/16 03:16 Dose: Not Given Oxycodone/Acetaminophen (Percocet 5/325 Mg Tab) 1 tab PO Q6 PRN PRN Reason: Pain, moderate (4-7) Stop: 07/07/16 18:49 Pantoprazole Sodium (Protonix Ec Tab) 40 mg PO DAILY [facility] Roflumilast (Daliresp) 500 mcg PO DAILY [facility] Spironolactone (Aldactone) 25 mg PO DAILY [facility] Zolpidem Tartrate (Ambien) 5 mg PO HS PRN PRN Reason: Sleep - Labs Labs: 07/07/16 04:35 07/07/16 04:35 PT 11.0 SECONDS (9.6-11.2) 06/09/16 04:10 INR 1.06 (0.92-1.08) 06/09/16 04:10 APTT 27.5 SECONDS (23.3-32.5) 06/03/16 22:33 Assessment and Plan (1) Acute bronchitis with chronic obstructive pulmonary disease (COPD) Status: Acute (2) Hyperthyroidism Status: Chronic (3) Abscess Status: Acute
--- NOTE | 2016-07-07 10:36 | RAD ---
PROCEDURE: CHEST RADIOGRAPH, 1 VIEW HISTORY: Respiratory failure COMPARISON: 07/03/2016 portable 3:06 p.m. FINDINGS: LUNGS: Lung volumes appear increased with central radiolucencies likely relating to cystic and some is changes. No pneumothorax is noted. The opacity at the right lung base shows some partial improved aeration. Residual infiltrate and/or atelectasis here is suspect. Evaluation of the left lung base is limited as it was before. Interval insertion of an endotracheal tube its tip approximately 5 cm from the dina. PLEURA: Probable small right pleural effusion -not significantly changed. Small left pleural effusion not excluded No pneumothorax appreciated CARDIOVASCULAR: Top-normal right central line in internal jugular vein approach tip superior vena cava OSSEOUS STRUCTURES: Partial resection proximal right humerus. Bilateral partial resection of each lateral clavicles well. Left humeral head orthopedic anchor rotator cuff versus biceps tendon intervention. Anterior cervical fusion hardware VISUALIZED UPPER ABDOMEN: Normal. OTHER FINDINGS: Bilateral axillary lymph node dissection. Left mastectomy IMPRESSION: Interval insertion of an endotracheal tube - tip as noted above. The prior right basal infiltrate and/or atelectasis shows improved aeration. Small concomitant right pleural effusion likely. Other findings as above
[2016-07-07] MEDS: Lactobacillus Acidophilus 500 MU Cap PO SCH ×2 (10:47→16:44)
[2016-07-07] MEDS: Hydrocortisone- 50 MG in Sodium Chloride 0.9% 100 ML IV SCH (10:50)
[2016-07-07] MEDS: Fluconazole IV 200mg/100 ml NS 100 ML IVPB SCH (10:50)
[2016-07-07] MEDS: Meropenem 1 GM in Sodium Chloride 0.9% 100 ML IVPB SCH ×2 (10:52→20:12)
[2016-07-07] MEDS: guaiFENesin 600 mg ER Tab PO SCH ×2 (10:53→21:17)
[2016-07-07] MEDS: Multivitamin With Minerals Tab PO SCH (10:54)
[2016-07-07] MEDS: Pantoprazole 40 mg EC Tab PO SCH ×2 (10:54→16:41)
[2016-07-07] MEDS: methIMAzole 5 MG TAB PO SCH ×2 (10:54→16:40)
[2016-07-07] MEDS: Linezolid 600 mg in D5W 300 ml 300 ML IVPB SCH ×2 (10:55→20:12)
[2016-07-07 10:59] LABS: ABG ALLEN TEST YES; ARTERIAL BLOOD GAS HCO3 32.5 mmol/L (21-28); ARTERIAL BLOOD GAS O2 CAPACITY 14.6 mL/dL (16-24); ARTERIAL BLOOD GAS O2 CONTENT 14.5 ML/dL (15-23); ARTERIAL BLOOD GAS PH 7.44 (7.35-7.45); ARTERIAL BLOOD GAS PO2 168 mm/Hg (80-100); ARTERIAL BLOOD HGB O2 SAT 96.8 % (95.0-98.0); CARBOXYHEMOGLOBIN 1.8 % (0.5-1.5); HHB 0.6 % (0.0-5.0); METHEMOGLOBIN 0.9 % (0.0-3.0)
[2016-07-07 13:31] LABS: T4 6.17 ug/dl (5.5-11.0)
[2016-07-07] MEDS ORDERED: Potassium Chl 40 mEq in D5-1/2 1,000 ML IV SCH (13:45)
[2016-07-07] MEDS: Potassium CL 10 MEQ/50 ML 50 ML IVPB SCH ×2 (13:49→15:06)
--- NOTE | 2016-07-07 14:49 | CP.PCM.PN ---
Subjective - Date & Time of Evaluation Date of Evaluation: 07/07/16 Time of Evaluation: 14:49 - Subjective Subjective: Pt had the right mandibular abscess drained yesterday. She feels much better. She also had a bronchosopy with respiratory toilet, and her ABG are better.Will follow up with CBC. Objective - Vital Signs/Intake and Output Vital Signs (last 24 hours): Temp Pulse Resp BP Pulse Ox 97.7 F 115 H 20 113/67 100 07/07/16 12:00 07/07/16 12:00 07/07/16 13:53 07/07/16 12:00 07/07/16 12:00 Intake and Output: 07/07/16 07/07/16 06:59 18:59 Intake Total 1148 600 Output Total 600 Balance 548 600 - Medications Medications: Current Medications Acetaminophen (Tylenol 325mg Tab) 650 mg PO Q6 PRN PRN Reason: Pain, moderate (4-7) Albuterol Sulfate (Albuterol 0.083% Inhal Aby (2.5 Mg/3 Ml) Ud) 2.5 mg INH RQ4 PRN PRN Reason: Shortness of Breath Albuterol/Ipratropium (Duoneb 3 Mg/0.5 Mg (3 Ml) Ud) 3 ml INH RQID [facility] Last Admin: 07/07/16 11:49 Dose: 3 ml Alprazolam (Xanax) 0.25 mg PO Q12 PRN PRN Reason: Anxiety Stop: 07/10/16 10:26 Anastrozole (Arimidex 1 Mg Tab) 1 mg PO DAILY [facility] Last Admin: 07/07/16 10:47 Dose: Not Given Baclofen (Lioresal) 10 mg PO HS [facility] Last Admin: 07/07/16 00:10 Dose: Not Given Gabapentin (Neurontin) 600 mg PO Q8 [facility] Last Admin: 07/07/16 10:53 Dose: Not Given Guaifenesin (Mucinex La) 600 mg PO Q12 [facility] Last Admin: 07/07/16 10:53 Dose: Not Given Fluconazole (Diflucan Iv 200 Mg/100 Ml Ns) 100 mls @ 100 mls/hr IVPB DAILY [facility] Last Admin: 07/07/16 10:50 Dose: 100 mls/hr Hydrocortisone Sodium Succinate 50 mg/ Sodium Chloride 100 mls @ 100 mls/hr IV DAILY [facility] Last Admin: 07/07/16 10:50 Dose: 100 mls/hr Piperacillin Sod/Tazobactam (Sod 3.375 gm/ Sodium Chloride) 100 mls @ 100 mls/ hr IVPB Q8 [facility] Last Admin: 07/07/16 10:52 Dose: 100 mls/hr Linezolid (Zyvox 600mg/300ml D5w) 300 mls @ 300 mls/hr IVPB Q12 [facility] Last Admin: 07/07/16 10:55 Dose: 300 mls/hr Meropenem 1 gm/ Sodium (Chloride) 100 mls @ 100 mls/hr IVPB Q12@0800,2000 [facility] Last Admin: 07/07/16 10:52 Dose: 100 mls/hr Potassium Chloride (Potassium Cl 10meq/50ml Sterile Water) 50 mls @ 50 mls/hr IVPB Q1 [facility] Stop: 07/07/16 14:59 Last Admin: 07/07/16 13:49 Dose: 50 mls/hr Potassium Chloride/Dextrose/Sod Cl (Potassium Chl 40 Meq In D5-1/2ns) 1,000 mls @ 42 mls/hr IV .[id number] [facility] Stop: 07/08/16 13:46 Lactobacillus Acidophilus (Bacid Acidophilus) 1 cap PO BID [facility] Last Admin: 07/07/16 10:47 Dose: Not Given Loperamide HCl (Imodium) 2 mg PO QID PRN PRN Reason: Loose stools Lorazepam (Ativan) 1 mg IVP Q4H PRN PRN Reason: Agitation Methimazole (Tapazole) 5 mg PO BID [facility] Last Admin: 07/07/16 10:54 Dose: Not Given Morphine Sulfate (Morphine) 2 mg IVP Q4 PRN PRN Reason: Pain, moderate (4-7) Last Admin: 07/06/16 14:15 Dose: 2 mg Multi-Ingredient Cream (Hydrocerin Cream) 1 applic TOP BID [facility] Multivitamins/Minerals (Therapeutic-M Tab) 1 tab PO DAILY [facility] Last Admin: 07/07/16 10:54 Dose: Not Given Nitroglycerin (Nitro-Bid 2% Oint) 1 in TOP Q6 [facility] Last Admin: 07/07/16 10:54 Dose: Not Given Oxycodone/Acetaminophen (Percocet 5/325 Mg Tab) 1 tab PO Q6 PRN PRN Reason: Pain, moderate (4-7) Stop: 07/07/16 18:49 Pantoprazole Sodium (Protonix Ec Tab) 40 mg PO DAILY [facility] Last Admin: 07/07/16 10:54 Dose: Not Given Roflumilast (Daliresp) 500 mcg PO DAILY [facility] Last Admin: 07/07/16 10:47 Dose: Not Given Spironolactone (Aldactone) 25 mg PO DAILY [facility] Last Admin: 07/07/16 10:47 Dose: Not Given Zolpidem Tartrate (Ambien) 5 mg PO HS PRN PRN Reason: Sleep - Labs Labs: 07/07/16 04:35 07/07/16 04:35 PT 11.0 SECONDS (9.6-11.2) 06/09/16 04:10 INR 1.06 (0.92-1.08) 06/09/16 04:10 APTT 27.5 SECONDS (23.3-32.5) 06/03/16 22:33
--- NOTE | 2016-07-07 15:46 | RAD ---
HISTORY: intubated COMPARISON: 07/06/2016 FINDINGS: Endotracheal tube terminates 4.8 cm proximal to the dina. The right IJV line terminates in the SVC. About LUNGS: There is bibasilar airspace disease and pleural effusions. . PLEURA: No pneumothorax apparent. CARDIOVASCULAR: The heart is normal in size. Atherosclerotic aortic arch calcifications are present. . OSSEOUS STRUCTURES: No significant abnormalities. VISUALIZED UPPER ABDOMEN: Normal. OTHER FINDINGS: None. IMPRESSION: Bibasilar atelectasis and small pleural effusions.
--- NOTE | 2016-07-07 16:12 | PN ---
DATE: 07/07/2016 LOCATION: In ICU, room 434 This is a 66-year-old female with recent hyperthyroidism, currently on Tapazole given as 5 mg b.i.d. and now being followed closely in the ICU for hemodynamic monitoring because of recent congestive hea rt failure and exacerbation of COPD as noted. Her latest chemistries include a BUN of 10, sodium 138, potassium 3.2, chloride 99, CO2 32, glucose 7 6, and creatinine 0.4. Her latest thyroid study showed a T4 of 6.17 with a TSH of 1.89 and free T4 o f 0.97. So at this time, will continue the same Tapazole at the low-dose of 5 mg b.i.d. after meals as christoph amezquita Will follow and advise accordingly. Polly Vu MD cc: [id number] TT: 07/07/2016 16:11:48 Confirmation # [id number] Dictation # [id number] roberta
[2016-07-07] MEDS: Hydrocerin CREAM TOP SCH ×2 (16:44→18:05)
--- NOTE | 2016-07-07 16:57 | CP.PCM.PN ---
Subjective - Date & Time of Evaluation Date of Evaluation: 07/07/16 Time of Evaluation: 13:30 - Subjective Subjective: Patient seen and evaluated bedside. Feeling better today. s/p right facial abscess drainage performed in OR yesterday with cynthia drain placement . Dressing appear soaked with sero sanguineous fluid. S/p bronchoscopy today while still intubated on MV and sedated with Fentanyl drip. BAL performed with suctioning of thick florez colored secretions from LLL , RML and RLL Extubated successfully and at present on high flow O2 via NC 20 LPM FIO2 30 %, saturating well 96 % . Feeling better today Tachycardic HR 112 NBP stable 113/67 , afebrile K 3.2 Objective - Vital Signs/Intake and Output Vital Signs (last 24 hours): Temp Pulse Resp BP Pulse Ox 97.7 F 105 H 15 110/71 95 07/07/16 12:00 07/07/16 14:00 07/07/16 16:08 07/07/16 14:00 07/07/16 14:00 Intake and Output: 07/07/16 07/07/16 06:59 18:59 Intake Total 1148 700 Output Total 600 Balance 548 700 - Medications Medications: Current Medications Acetaminophen (Tylenol 325mg Tab) 650 mg PO Q6 PRN PRN Reason: Pain, moderate (4-7) Albuterol Sulfate (Albuterol 0.083% Inhal Aby (2.5 Mg/3 Ml) Ud) 2.5 mg INH RQ4 PRN PRN Reason: Shortness of Breath Albuterol/Ipratropium (Duoneb 3 Mg/0.5 Mg (3 Ml) Ud) 3 ml INH RQID [facility] Last Admin: 07/07/16 16:06 Dose: 3 ml Alprazolam (Xanax) 0.25 mg PO Q12 PRN PRN Reason: Anxiety Stop: 07/10/16 10:26 Anastrozole (Arimidex 1 Mg Tab) 1 mg PO DAILY [facility] Last Admin: 07/07/16 10:47 Dose: Not Given Baclofen (Lioresal) 10 mg PO HS [facility] Last Admin: 07/07/16 00:10 Dose: Not Given Gabapentin (Neurontin) 600 mg PO Q8 [facility] Last Admin: 07/07/16 10:53 Dose: Not Given Guaifenesin (Mucinex La) 600 mg PO Q12 [facility] Last Admin: 07/07/16 10:53 Dose: Not Given Fluconazole (Diflucan Iv 200 Mg/100 Ml Ns) 100 mls @ 100 mls/hr IVPB DAILY [facility] Last Admin: 07/07/16 10:50 Dose: 100 mls/hr Hydrocortisone Sodium Succinate 50 mg/ Sodium Chloride 100 mls @ 100 mls/hr IV DAILY [facility] Last Admin: 07/07/16 10:50 Dose: 100 mls/hr Piperacillin Sod/Tazobactam (Sod 3.375 gm/ Sodium Chloride) 100 mls @ 100 mls/ hr IVPB Q8 [facility] Last Admin: 07/07/16 10:52 Dose: 100 mls/hr Linezolid (Zyvox 600mg/300ml D5w) 300 mls @ 300 mls/hr IVPB Q12 [facility] Last Admin: 07/07/16 10:55 Dose: 300 mls/hr Meropenem 1 gm/ Sodium (Chloride) 100 mls @ 100 mls/hr IVPB Q12@0800,2000 [facility] Last Admin: 07/07/16 10:52 Dose: 100 mls/hr Potassium Chloride/Dextrose/Sod Cl (Potassium Chl 40 Meq In D5-1/2ns) 1,000 mls @ 42 mls/hr IV .[id number] [facility] Stop: 07/08/16 13:46 Lactobacillus Acidophilus (Bacid Acidophilus) 1 cap PO BID [facility] Last Admin: 07/07/16 10:47 Dose: Not Given Loperamide HCl (Imodium) 2 mg PO QID PRN PRN Reason: Loose stools Methimazole (Tapazole) 5 mg PO BID [facility] Last Admin: 07/07/16 10:54 Dose: Not Given Morphine Sulfate (Morphine) 2 mg IVP Q4 PRN PRN Reason: Pain, moderate (4-7) Last Admin: 07/07/16 14:56 Dose: 2 mg Multi-Ingredient Cream (Hydrocerin Cream) 1 applic TOP BID [facility] Multivitamins/Minerals (Therapeutic-M Tab) 1 tab PO DAILY [facility] Last Admin: 07/07/16 10:54 Dose: Not Given Nitroglycerin (Nitro-Bid 2% Oint) 1 in TOP Q6 [facility] Last Admin: 07/07/16 10:54 Dose: Not Given Oxycodone/Acetaminophen (Percocet 5/325 Mg Tab) 1 tab PO Q6 PRN PRN Reason: Pain, moderate (4-7) Stop: 07/07/16 18:49 Pantoprazole Sodium (Protonix Ec Tab) 40 mg PO DAILY [facility] Last Admin: 07/07/16 10:54 Dose: Not Given Roflumilast (Daliresp) 500 mcg PO DAILY [facility] Last Admin: 07/07/16 10:47 Dose: Not Given Spironolactone (Aldactone) 25 mg PO DAILY [facility] Last Admin: 07/07/16 10:47 Dose: Not Given Zolpidem Tartrate (Ambien) 5 mg PO HS PRN PRN Reason: Sleep - Labs Labs: 07/07/16 04:35 07/07/16 04:35 PT 11.0 SECONDS (9.6-11.2) 06/09/16 04:10 INR 1.06 (0.92-1.08) 06/09/16 04:10 APTT 27.5 SECONDS (23.3-32.5) 06/03/16 22:33 - Constitutional Appears: Non-toxic, No Acute Distress, Chronically Ill - Head Exam Additional comments: right supramandibular area swelling with cynthia drain in place with sero sanguineous fluid drainage right facial paralysis with droop of mouth angle and not moving - Eye Exam Eye Exam: EOMI, PERRL - ENT Exam ENT Exam: Mucous Membranes Moist, Normal Exam - Neck Exam Neck Exam: Full ROM, Normal Inspection - Respiratory Exam Respiratory Exam: Prolonged Expiratory Phase. absent: Wheezes Additional comments: coarse rhonchi to RLL - Cardiovascular Exam Cardiovascular Exam: Tachycardia, REGULAR RHYTHM, +S1, +S2. absent: JVD - GI/Abdominal Exam GI & Abdominal Exam: Soft, Normal Bowel Sounds. absent: Distended, Guarding, Tenderness, Rebound - Rectal Exam Rectal Exam: Deferred - Extremities Exam Extremities Exam: Full ROM, Pedal Edema (2 + to LE bilaterally ). absent: Calf Tenderness, Tenderness Additional comments: RUE lymphedema - Back Exam Back Exam: NORMAL INSPECTION - Neurological Exam Neurological Exam: Alert, Awake, Oriented x3 Additional comments: right facial paralysis not ,moving corner of the mouth - Psychiatric Exam Psychiatric exam: Normal Affect - Skin Skin Exam: Dry, Pallor, Warm Additional comments: left upper chest and LUE multiple echymotic areas Assessment and Plan - Assessment and Plan (Free Text) Assessment: 66 y/o female PMH COPD, bilateral breast CA s/p chemo and radiation 8 years ago , HTN, Hyperthyroidism presented with 2 week history of worsening bilateral lower extremity swelling and weakness, unable to get herself up to her walker. Patient has mild dyspnea at baseline. She also came with a large right facial swelling for almost 2 weeks and was taking PO antibiotics prescribed by her dentist. Patient was admitted for generalized weakness , Hyponatremia and Facial abscess. She was started on IV antibiotics for facial abscess and Lasix IV with fluid restriction for LE edema. Maxillofacial Ct showed possible abscess accumulation. Evaluated by Oromaxillofacial surgeon and underwent Incision and drainage of abscess. Bone scan showed possible osteomyelitis . ID recommends 4-6 wks IV abx treatment. During this hospitalization noted to have increased dyspnea at rest and more so with minimal activity, decreased air entry bilaterally and increased work of breathing. She was started on high flow O2, Higher doses of theophylline and IV hydrocortisone. CTA chest and LE doppler showed no DVT , except right cephallic cherelle thrombosis . She was transferred to ICU for close monitoring for tachypnea and tachycardia. She underwent IR drainage on 06/24 of right facial abscess due to re accumulation and cultures came positive for VRE and bria. Antibiotics were changed to Zyvox , Meropenem and Fluconazone. Despite drainage and IV antibiotics she still kept complaining of pain to right supramandibular area with increased swelling. Repeat CT showed abscess formation . Patient underwent I&D in OR 07/06/16 with cynthia drainage placement. Her respiratory status has been improving slowly , significant for chest congestion , unable to expectorate despite high flow O2 therapy , Duonebs . Corticosteroids have been tapered , theophilline discontinued and Daliresp started.Today underwent Bronchoscopy while still intubated post maxillofacial abscess I&D with BAL of thick florez colored secretions that were sent for cultures. At present, still on High Flow Oxygen 20 LMP FIO2 30 % with good oxygenation, feeling better today. 1. Acute on Chronic Respiratory Insufficiency with hypercapnea-- multifactorial Most likely secondary to COPD exacerbation with acute bronchitis and CHF exacerbation improving slowly s/p bronchoscopy today with BAL of florez colored thick secretions for LLL, RLL and RML Extubated successfully .Continue high flow O2 via NC 20 LMP on FIO2 30 % CXR today showed atelectasis with minimal pleural effusion Continue Duonebs Dr. Kozel following patient closely Discontinued ASA,coreg , Theophylline and started Daliresp tapered Hydrocortisone to 50 mg IV daily on very low dose Xanax 0.25 bid prn as this seem to help when pt gets very anxious, tachypenic and tachycardic 2. Chest Pain , prob sec to Anxiety, ACS ruled out with recurrent pressure like chest pain on and off cardiology consult with Dr. Luu appreciated Trop -- negative and EKG showed no ST-T wave changes Most likely atypical chest pain related to anxiety , hypokalemia and COPD. There is no signs of ischemia 3. Facial abscess with mandibular Osteomyelitis s/p drainage of abscess with penreose drainage placement s/p Incision and drainage on 06/[address] Anderson maxillofacial surgeon pathology report showed inflammatory cells, no malignancy Nuclear Bone Scan suggestive of osteomyelitis initial cultures were with no growth so was started on Zosyn ,and Clindamycin IV ID consult with Dr Obrien appreciated .. Recommended IV abx 6 wks total ( # ) Tunneled central line placed for assisted IV antibiotics- this will need to be d/c by IR after IV abx treatment is completed ( as discussed with Dr Gunter - pt was informed of need to see IR after abx tx) Due to increased swelling and pain patient underwent drainage of facial collection by IR on 06/24 and 24 ml yellow fluid obtained. Cultures reported as VRE and Bria Antibiotics changed to Zyvox , Meropenem and Fluconazole ENT eval with Dr. Priest appreciated. He recommended reevaluation by maxillofacial surgeon due recurrence odf swelling despite of I&, drainage and antibiotics s/p Abscess drainage with I& D done 07/06/16 in OR with cynthia drainage placement Continue current IV antibiotics. Follow up repeat cultures 4. Bilateral LE edema sec to CHF exacerbation with diastolic dysfxn still with LE edema bilateral 2 + diuresing well Echo showed EF 40-45 % and dilated RV continue fluid restriction Promote ambulation 5. Hypokalemia multifactorial diuretic induced , Albuterol, Hypothyroidism and GI loss ( had 5 BM ) off Lasix Continue KCl runs and PO replacement as needed Nephro consult appreciated CT of abd showed no adrenal mass Check 24 hour urine Mg and calcium 6 .Hyponatremia, resolved most likely secondary to solute depletion and infection Continue fluid restriction 7.Hx breast ca, bilateral stable, s/p bilateral mastectomy continue arimidex 8. Tachycardia -- multifactorial Hx of HTN was on verapamil at home ( 80mg tid) but decreased dose due to low BP and now discontinued as may contribute to leg edema continue monitoring 9. Hypothyroidism/ Hyperthyroidism patient has history of hyperthyroidism , was on Methimazole and noticed to had developed hypothyroidism so Methimazole was d/c and she was started on Po levothyroxine thi sadmisison At present TSH 0.25 so Methimazole 5 mg po bid restarted as discussed with Dr Vu d/c levothyroxine 10. Anemia, chronic dis monitor anemia work up showed depleted iron stores Venofer IV given s/p 2 units PRBC transfusion Hgb 10 11. Right cephalic vein thrombosis ( superficial vein) restarted lovenox 12.DVT ppx on lovenox
--- NOTE | 2016-07-07 18:07 | CP.CCUPN ---
CCU Subjective - Physician Review Subjective (Free Text): PRIEST PROGRESS NOTE Addendum to todays note: Sudden complaint by patient I cant breathe manifest as tachypnea and accessory muscle use occurring at the same time neck dressing is being removed due to soaked dressing from cyntiha drainage. Mild desaturation noted to 88% as HF nasal cannula slightly malpositioned as patient was pulling away from Nurse as dressing was being removed. She was on HFNC at 30% oxygen and 20 LPM at the time. Decision made to ready for urgent oral intubation. No cyanosis noted, but observed using accessory muscles to lift her chest for air movement. Dried gum- like secretions noted within mouth as well. In the interim, Morphine 4 mg IVP given to relieve chest discomfort and HFNC increased to 50% and 25LPM with improvement in SPo2 to 100%. Subsequent overall status improved, re-intubation averted for now. Will order CXR to check for any other occult lung pathology.
--- NOTE | 2016-07-07 18:23 | RAD ---
HISTORY: "can't breathe" COMPARISON: Plain radiographs performed earlier the same day FINDINGS: The right IJV line terminates in the SVC. LUNGS: There is right basilar artery space disease. There are bilateral small pleural effusions. PLEURA: No pneumothorax apparent. CARDIOVASCULAR: Normal. OSSEOUS STRUCTURES: There is an old deformity in the right proximal humerus. VISUALIZED UPPER ABDOMEN: Normal. OTHER FINDINGS: There are surgical clips in both axilla. IMPRESSION: Right lower lobe airspace disease may represent atelectasis or pneumonia. Small bilateral pleural effusions.
[2016-07-08] MEDS: Nitroglycerin 2% 1GM UD TOP SCH ×5 (00:41→21:57)
[2016-07-08 05:49] LABS: HEMATOCRIT 30.1 % (34.0-47.0); MEAN CELL VOLUME 85.9 fl (81.0-99.0); MEAN CORPUSCULAR HEMOGLOBIN 27.1 pg (27.0-31.0); MEAN CORPUSCULAR HGB CONC 31.5 g/dL (33.0-37.0); RED CELL DISTRIBUTION WIDTH 30.6 % (11.5-14.5); WHITE BLOOD COUNT 7.2 K/uL (4.8-10.8)
[2016-07-08 06:04] LABS: BLOOD UREA NITROGEN 6 mg/dl (7-17); CALCIUM 8.4 mg/dL (8.4-10.2); CARBON DIOXIDE 32 mmol/L (22-30); CHLORIDE 99 mmol/L (98-107); GFR AFRICAN-AMERICAN > 60; GLUCOSE,RANDOM 71 mg/dL (65-105); MAGNESIUM 1.9 MG/DL (1.6-2.3); PHOSPHOROUS 3.5 mg/dl (2.5-4.5); POTASSIUM 3.1 MMOL/L (3.6-5.0); SODIUM 138 mmol/l (132-148)
[2016-07-08] MEDS ORDERED: Potassium Chloride 20 mEq ER Tab PO ONE (06:18)
[2016-07-08] MEDS: Potassium CL 10 MEQ/50 ML 50 ML IVPB SCH ×2 (06:31→08:14)
--- NOTE | 2016-07-08 06:58 | RAD ---
HISTORY: SOB COMPARISON: 07/07/2016 FINDINGS: LUNGS: Bibasilar infiltrates are unchanged. The upper lung corral are clear. PLEURA: No significant pleural effusion identified, no pneumothorax apparent. CARDIOVASCULAR: Normal. OSSEOUS STRUCTURES: No significant abnormalities. VISUALIZED UPPER ABDOMEN: Normal. OTHER FINDINGS: None. IMPRESSION: No change in bibasilar infiltrates
--- NOTE | 2016-07-08 07:29 | CP.PCM.PN ---
Subjective - Date & Time of Evaluation Date of Evaluation: 07/08/16 Time of Evaluation: 07:20 - Subjective Subjective: Patient seen bedside. Resting comfortably .Feeling better. Events,labs and CXR reviewed.On high flow O2 via NC 25 LPM FIO2 45 % . With episode of chest pain and desaturation yesterday that improved with higher FIO2 of 50 % and morphine IV No other issues overnight. Hemodynamically stable BP 98/68 HR 97 O2 Sat 100 % WBC 7 K Hgb 9.5 Plt 127 K K 3.1 Na 138 I/O 2704/1320 Objective - Vital Signs/Intake and Output Vital Signs (last 24 hours): Temp Pulse Resp BP Pulse Ox 98.6 F 97 H 15 98/68 L 100 07/08/16 06:00 07/08/16 06:00 07/08/16 06:00 07/08/16 06:00 07/08/16 06:00 Intake and Output: 07/08/16 07/08/16 06:59 18:59 Intake Total 1484 Output Total 520 Balance 964 - Medications Medications: Current Medications Acetaminophen (Tylenol 325mg Tab) 650 mg PO Q6 PRN PRN Reason: Pain, moderate (4-7) Albuterol Sulfate (Albuterol 0.083% Inhal Aby (2.5 Mg/3 Ml) Ud) 2.5 mg INH RQ4 PRN PRN Reason: Shortness of Breath Albuterol/Ipratropium (Duoneb 3 Mg/0.5 Mg (3 Ml) Ud) 3 ml INH RQID [facility] Last Admin: 07/07/16 18:59 Dose: 3 ml Alprazolam (Xanax) 0.25 mg PO Q12 PRN PRN Reason: Anxiety Stop: 07/10/16 10:26 Anastrozole (Arimidex 1 Mg Tab) 1 mg PO DAILY [facility] Last Admin: 07/07/16 16:42 Dose: 1 mg Baclofen (Lioresal) 10 mg PO HS [facility] Last Admin: 07/07/16 21:17 Dose: 10 mg Enoxaparin Sodium (Lovenox) 40 mg SC DAILY [facility] PRN Reason: Protocol Gabapentin (Neurontin) 600 mg PO Q8 [facility] Last Admin: 07/08/16 01:30 Dose: Not Given Guaifenesin (Mucinex La) 600 mg PO Q12 [facility] Last Admin: 07/07/16 21:17 Dose: 600 mg Fluconazole (Diflucan Iv 200 Mg/100 Ml Ns) 100 mls @ 100 mls/hr IVPB DAILY [facility] Last Admin: 07/07/16 10:50 Dose: 100 mls/hr Hydrocortisone Sodium Succinate 50 mg/ Sodium Chloride 100 mls @ 100 mls/hr IV DAILY [facility] Last Admin: 07/07/16 10:50 Dose: 100 mls/hr Linezolid (Zyvox 600mg/300ml D5w) 300 mls @ 300 mls/hr IVPB Q12 [facility] Last Admin: 07/07/16 20:12 Dose: 300 mls/hr Meropenem 1 gm/ Sodium (Chloride) 100 mls @ 100 mls/hr IVPB Q12@0800,2000 [facility] Last Admin: 07/07/16 20:12 Dose: 100 mls/hr Potassium Chloride/Dextrose/Sod Cl (Potassium Chl 40 Meq In D5-1/2ns) 1,000 mls @ 42 mls/hr IV .[id number] [facility] Stop: 07/08/16 13:46 Last Admin: 07/07/16 18:01 Dose: 42 mls/hr Potassium Chloride (Potassium Cl 10meq/50ml Sterile Water) 50 mls @ 50 mls/hr IVPB Q1 [facility] Stop: 07/08/16 08:59 Last Admin: 07/08/16 06:31 Dose: 50 mls/hr Magnesium Sulfate/Dextrose (Magnesium Sulfate 1 Gm/100 Ml D5w) 100 mls @ 100 mls/hr IVPB ONCE ONE PRN Reason: 1 GM/HR Stop: 07/08/16 07:46 Lactobacillus Acidophilus (Bacid Acidophilus) 1 cap PO BID [facility] Last Admin: 07/07/16 16:44 Dose: 1 cap Loperamide HCl (Imodium) 2 mg PO QID PRN PRN Reason: Loose stools Methimazole (Tapazole) 5 mg PO BID [facility] Last Admin: 07/07/16 16:40 Dose: 5 mg Morphine Sulfate (Morphine) 2 mg IVP Q4 PRN PRN Reason: Pain, moderate (4-7) Last Admin: 07/07/16 14:56 Dose: 2 mg Multi-Ingredient Cream (Hydrocerin Cream) 1 applic TOP BID [facility] Last Admin: 07/07/16 18:05 Dose: 1 applic Multivitamins/Minerals (Therapeutic-M Tab) 1 tab PO DAILY [facility] Last Admin: 07/07/16 10:54 Dose: Not Given Nitroglycerin (Nitro-Bid 2% Oint) 1 in TOP Q6 [facility] Last Admin: 07/08/16 04:15 Dose: Not Given Pantoprazole Sodium (Protonix Ec Tab) 40 mg PO DAILY [facility] Last Admin: 07/07/16 16:41 Dose: 40 mg Roflumilast (Daliresp) 500 mcg PO DAILY [facility] Last Admin: 07/07/16 16:44 Dose: 500 mcg Spironolactone (Aldactone) 25 mg PO DAILY [facility] Last Admin: 07/07/16 16:42 Dose: 25 mg Zolpidem Tartrate (Ambien) 5 mg PO HS PRN PRN Reason: Sleep Last Admin: 07/07/16 21:59 Dose: 5 mg - Labs Labs: 07/08/16 05:44 07/08/16 05:44 PT 11.0 SECONDS (9.6-11.2) 06/09/16 04:10 INR 1.06 (0.92-1.08) 06/09/16 04:10 APTT 27.5 SECONDS (23.3-32.5) 06/03/16 22:33 - Constitutional Appears: Non-toxic, No Acute Distress, Chronically Ill - Head Exam Head Exam: ATRAUMATIC Additional comments: right facial abscess with cynthia drain in place and clean overlying dressing - Eye Exam Eye Exam: EOMI, Normal appearance, PERRL Pupil Exam: NORMAL ACCOMODATION - ENT Exam ENT Exam: Mucous Membranes Moist, Normal Exam - Neck Exam Neck Exam: Full ROM, Normal Inspection. absent: Lymphadenopathy - Respiratory Exam Respiratory Exam: Decreased Breath Sounds (bibasilar), Rhonchi (diffuse rhonchi predominant to right hemithorax and LLL). absent: Wheezes, Respiratory Distress - Cardiovascular Exam Cardiovascular Exam: Tachycardia, REGULAR RHYTHM, RRR, +S1, +S2. absent: JVD - GI/Abdominal Exam GI & Abdominal Exam: Soft, Normal Bowel Sounds. absent: Distended, Guarding, Tenderness, Rebound - Rectal Exam Rectal Exam: Deferred - Extremities Exam Extremities Exam: Full ROM, Normal Capillary Refill, Normal Inspection, Pedal Edema (2+) Additional comments: RUE lymphedema - Neurological Exam Neurological Exam: Alert, Awake, CN II-XII Intact, Oriented x3 - Psychiatric Exam Psychiatric exam: Normal Affect, Normal Mood - Skin Skin Exam: Dry, Pallor, Warm Additional comments: left upper chest and LUE multiple echymotic areas Assessment and Plan - Assessment and Plan (Free Text) Assessment: 66 y/o female PMH COPD, bilateral breast CA s/p chemo and radiation 8 years ago , HTN, Hyperthyroidism presented with 2 week history of worsening bilateral lower extremity swelling and weakness, unable to get herself up to her walker. Patient has mild dyspnea at baseline. She also came with a large right facial swelling for almost 2 weeks and was taking PO antibiotics prescribed by her dentist. Patient was admitted for generalized weakness , Hyponatremia and Facial abscess. She was started on IV antibiotics for facial abscess and Lasix IV with fluid restriction for LE edema. Maxillofacial Ct showed possible abscess accumulation. Evaluated by Oromaxillofacial surgeon and underwent Incision and drainage of abscess. Bone scan showed possible osteomyelitis . ID recommends 4-6 wks IV abx treatment. During this hospitalization noted to have increased dyspnea at rest and more so with minimal activity, decreased air entry bilaterally and increased work of breathing. She was started on high flow O2, Higher doses of theophylline and IV hydrocortisone. CTA chest and LE doppler showed no DVT , except right cephallic cherelle thrombosis . She was transferred to ICU for close monitoring for tachypnea and tachycardia. She underwent IR drainage on 06/24 of right facial abscess due to re accumulation and cultures came positive for VRE and bria. Antibiotics were changed to Zyvox , Meropenem and Fluconazone. Despite drainage and IV antibiotics she still kept complaining of pain to right supramandibular area with increased swelling. Repeat CT showed abscess formation . Patient underwent I&D in OR 07/06/16 with cynthia drainage placement. Her respiratory status has been improving slowly , significant for chest congestion , unable to expectorate despite high flow O2 therapy , Duonebs . Corticosteroids have been tapered , theophilline discontinued and Daliresp started.07/07/16 nderwent Bronchoscopy while still intubated post maxillofacial abscess I&D with BAL of thick florez colored secretions that were sent for cultures. With episode of chest [place] and desaturation yesterday that improved after Morphine IV and high FIO2 50 %. CXR stable with smal right pleural effsuion At present on High Flow Oxygen 25 LMP FIO2 45 % with good oxygenation and feeling better. 1. Acute on Chronic Respiratory Insufficiency with hypercapnea-- multifactorial Most likely secondary to COPD exacerbation with acute bronchitis and CHF exacerbation improving slowly s/p bronchoscopy 07/07/16 with BAL of florez colored thick secretions for LLL, RLL and RML Extubated successfully . on higher FIO2 45 % and 25 LPM due to episode of desaturation yesterday CXR today showed atelectasis with minimal pleural effusion Continue Matilda Benz following patient closely Discontinued ASA,coreg , Theophylline and started Daliresp tapered Hydrocortisone to 50 mg IV daily on very low dose Xanax 0.25 bid prn as this seem to help when pt gets very anxious, tachypenic and tachycardic 2. Chest Pain , prob sec to Anxiety, ACS ruled out with recurrent pressure like chest pain on and off cardiology consult with Dr. Luu appreciated Trop -- negative and EKG showed no ST-T wave changes Most likely atypical chest pain related to anxiety , hypokalemia and COPD. There is no signs of ischemia 3. Facial abscess with mandibular Osteomyelitis s/p drainage of abscess with penreose drainage placement s/p Incision and drainage on 06/[address] Anderson maxillofacial surgeon pathology report showed inflammatory cells, no malignancy Nuclear Bone Scan suggestive of osteomyelitis initial cultures were with no growth so was started on Zosyn ,and Clindamycin IV ID consult with Dr Obrien appreciated .. Recommended IV abx 6 wks total ( # Day ) Tunneled central line placed for terminal gauger IV antibiotics- this will need to be d/c by IR after IV abx treatment is completed ( as discussed with Dr Gunter - pt was informed of need to see IR after abx tx) Due to increased swelling and pain patient underwent drainage of facial collection by IR on 06/24 and 24 ml yellow fluid obtained. Cultures reported as VRE and Bria Antibiotics changed to Zyvox , Meropenem and Fluconazole ENT eval with Dr. Priest appreciated. He recommended reevaluation by maxillofacial surgeon due recurrence odf swelling despite of I&, drainage and antibiotics s/p Abscess drainage with I& D done 07/06/16 in OR with cynthia drainage placement . Minimal drainage noted from cynthia drain today Continue current IV antibiotics. Follow up repeat cultures 4. Bilateral LE edema sec to CHF exacerbation with diastolic dysfxn still with LE edema bilateral 2 + diuresing well Echo showed EF 40-45 % and dilated RV continue fluid restriction Promote ambulation 5. Hypokalemia multifactorial diuretic induced , Albuterol, Hypothyroidism and GI loss ( had 5 BM ) off Lasix Continue KCl runs and PO replacement as needed Nephro consult appreciated CT of abd showed no adrenal mass Check 24 hour urine Mg and calcium 6 .Hyponatremia, resolved most likely secondary to solute depletion and infection Continue fluid restriction 7.Hx breast ca, bilateral stable, s/p bilateral mastectomy continue arimidex 8. Tachycardia -- multifactorial Hx of HTN was on verapamil at home ( 80mg tid) but decreased dose due to low BP and now discontinued as may contribute to leg edema continue monitoring 9. Hypothyroidism/ Hyperthyroidism patient has history of hyperthyroidism , was on Methimazole and noticed to had developed hypothyroidism so Methimazole was d/c and she was started on Po levothyroxine this admission At present TSH 0.25 so Methimazole 5 mg po bid restarted as discussed with Dr Vu d/c levothyroxine 10. Anemia, chronic dis monitor anemia work up showed depleted iron stores Venofer IV given s/p 2 units PRBC transfusion Hgb 9.5 11. Right cephalic vein thrombosis ( superficial vein) restarted lovenox 12.DVT ppx on lovenox
[2016-07-08] MEDS: Albuterol-Ipratrop 3 mg / 0.5 (3 ml) UD INH SCH ×4 (07:44→20:13)
[2016-07-08] MEDS: Meropenem 1 GM in Sodium Chloride 0.9% 100 ML IVPB SCH ×2 (08:16→20:10)
[2016-07-08] MEDS: Enoxaparin 40 mg Syringe SC SCH (08:20)
[2016-07-08] MEDS: Pantoprazole 40 mg EC Tab PO SCH (08:22)
[2016-07-08] MEDS: Multivitamin With Minerals Tab PO SCH (08:22)
[2016-07-08] MEDS: guaiFENesin 600 mg ER Tab PO SCH ×2 (08:22→20:17)
[2016-07-08] MEDS: methIMAzole 5 MG TAB PO SCH ×2 (08:23→17:00)
[2016-07-08] MEDS: Lactobacillus Acidophilus 500 MU Cap PO SCH ×3 (08:48→17:01)
[2016-07-08] MEDS: Fluconazole IV 200mg/100 ml NS 100 ML IVPB SCH (08:49)
[2016-07-08] MEDS: Hydrocerin CREAM TOP SCH ×2 (08:56→17:02)
--- NOTE | 2016-07-08 09:35 | CP.PCM.PN ---
Subjective - Date & Time of Evaluation Date of Evaluation: 07/08/16 Time of Evaluation: 09:29 - Subjective Subjective: Interim events reviewed. Case discussed with mortgage processing clerk. Chest x-ray reviewed, essentially unchanged. Bronchoscopy specimen foer culture sent, result pending. Culture of specimen from buccal abscess 'no growth' so far. Continued bloody drainage, small volume, from buccal wound. Patient claims to feel 'okay' this morning. Appetite is fair at best. BM's have decreased in frequency. BP is stable, slightly less tachycardic. Oxygenation 95% on high flow nasal 45%/25LPM. Dependant edema still ++. Plasma potassium still needs continual replacement. Breath sounds are diminished but present bilaterally. Slightly prolonged E phase with few E wheezes (low pitch). Will ask to stay in ICU today since she had an episode of severe dyspnea yesterday. This was responsive to increased levels of High Flow nasal canula. Continued K supplementation despite potassium sparing diuretic is an ongoing problem. Multi-antibiotic therapy will be reviewed when cultures are reported. Objective - Vital Signs/Intake and Output Vital Signs (last 24 hours): Temp Pulse Resp BP Pulse Ox 98.2 F 109 H 18 104/63 100 07/08/16 08:00 07/08/16 08:00 07/08/16 08:00 07/08/16 08:00 07/08/16 08:00 Intake and Output: 07/07/16 07/08/16 23:59 11:59 Intake Total 2068 728 Output Total 800 520 Balance 1268 208 - Medications Medications: Current Medications Acetaminophen (Tylenol 325mg Tab) 650 mg PO Q6 PRN PRN Reason: Pain, moderate (4-7) Albuterol Sulfate (Albuterol 0.083% Inhal Aby (2.5 Mg/3 Ml) Ud) 2.5 mg INH RQ4 PRN PRN Reason: Shortness of Breath Albuterol/Ipratropium (Duoneb 3 Mg/0.5 Mg (3 Ml) Ud) 3 ml INH RQID [facility] Last Admin: 07/08/16 07:44 Dose: 3 ml Alprazolam (Xanax) 0.25 mg PO Q12 PRN PRN Reason: Anxiety Stop: 07/10/16 10:26 Anastrozole (Arimidex 1 Mg Tab) 1 mg PO DAILY [facility] Last Admin: 07/08/16 08:58 Dose: 1 mg Baclofen (Lioresal) 10 mg PO HS [facility] Last Admin: 07/07/16 21:17 Dose: 10 mg Enoxaparin Sodium (Lovenox) 40 mg SC DAILY [facility] PRN Reason: Protocol Last Admin: 07/08/16 08:20 Dose: 40 mg Gabapentin (Neurontin) 600 mg PO Q8 [facility] Last Admin: 07/08/16 08:23 Dose: 600 mg Guaifenesin (Mucinex La) 600 mg PO Q12 [facility] Last Admin: 07/08/16 08:22 Dose: 600 mg Fluconazole (Diflucan Iv 200 Mg/100 Ml Ns) 100 mls @ 100 mls/hr IVPB DAILY [facility] Last Admin: 07/08/16 08:49 Dose: 100 mls/hr Hydrocortisone Sodium Succinate 50 mg/ Sodium Chloride 100 mls @ 100 mls/hr IV DAILY [facility] Last Admin: 07/07/16 10:50 Dose: 100 mls/hr Linezolid (Zyvox 600mg/300ml D5w) 300 mls @ 300 mls/hr IVPB Q12 [facility] Last Admin: 07/07/16 20:12 Dose: 300 mls/hr Meropenem 1 gm/ Sodium (Chloride) 100 mls @ 100 mls/hr IVPB Q12@0800,2000 [facility] Last Admin: 07/08/16 08:16 Dose: 100 mls/hr Potassium Chloride/Dextrose/Sod Cl (Potassium Chl 40 Meq In D5-1/2ns) 1,000 mls @ 42 mls/hr IV .[id number] [facility] Stop: 07/08/16 13:46 Last Admin: 07/07/16 18:01 Dose: 42 mls/hr Lactobacillus Acidophilus (Bacid Acidophilus) 1 cap PO BID [facility] Last Admin: 07/08/16 08:49 Dose: 1 cap Loperamide HCl (Imodium) 2 mg PO QID PRN PRN Reason: Loose stools Last Admin: 07/08/16 08:57 Dose: 2 mg Methimazole (Tapazole) 5 mg PO BID [facility] Last Admin: 07/08/16 08:23 Dose: 5 mg Morphine Sulfate (Morphine) 2 mg IVP Q4 PRN PRN Reason: Pain, moderate (4-7) Last Admin: 07/07/16 14:56 Dose: 2 mg Multi-Ingredient Cream (Hydrocerin Cream) 1 applic TOP BID [facility] Last Admin: 07/08/16 08:56 Dose: 1 applic Multivitamins/Minerals (Therapeutic-M Tab) 1 tab PO DAILY [facility] Last Admin: 07/08/16 08:22 Dose: 1 tab Nitroglycerin (Nitro-Bid 2% Oint) 1 in TOP Q6 [facility] Last Admin: 07/08/16 04:15 Dose: Not Given Pantoprazole Sodium (Protonix Ec Tab) 40 mg PO DAILY [facility] Last Admin: 07/08/16 08:22 Dose: 40 mg Roflumilast (Daliresp) 500 mcg PO DAILY [facility] Last Admin: 07/08/16 08:56 Dose: 500 mcg Spironolactone (Aldactone) 25 mg PO DAILY [facility] Last Admin: 07/08/16 08:22 Dose: 25 mg Zolpidem Tartrate (Ambien) 5 mg PO HS PRN PRN Reason: Sleep Last Admin: 07/07/16 21:59 Dose: 5 mg - Labs Labs: 07/08/16 05:44 07/08/16 05:44 PT 11.0 SECONDS (9.6-11.2) 06/09/16 04:10 INR 1.06 (0.92-1.08) 06/09/16 04:10 APTT 27.5 SECONDS (23.3-32.5) 06/03/16 22:33 Assessment and Plan (1) Acute bronchitis with chronic obstructive pulmonary disease (COPD) Status: Acute (2) Hyperthyroidism Status: Chronic (3) Abscess Status: Acute (4) Hypokalemia Status: Acute
[2016-07-08] MEDS: Linezolid 600 mg in D5W 300 ml 300 ML IVPB SCH ×2 (10:03→21:56)
--- NOTE | 2016-07-08 10:03 | CP.CCUPN ---
CCU Subjective - Physician Review Subjective (Free Text): 07/08/16 10:57 Pt is seen and examined at bedside in the ICU, as she is seen lying comfortably in bed. She denies any overnight events or problems, stating she has improved since yesterday afternoon's dyspneic episode. Denies any acute respiratory issues since this episode. She also denies any f/c/n/v/d, chest pain, abdominal pain, or myalgias. CCU Objective - Vital Signs / Intake & Output Vital Signs (Last 4 hours): Vital Signs Temp Pulse Resp BP Pulse Ox 07/08/16 08:00 98.2 F 109 H 18 104/63 100 07/08/16 07:45 14 Intake and Output (Last 8hrs): Intake & Output 07/07/16 07/08/16 07/08/16 22:59 06:59 14:59 Intake Total 1368 636 92 Output Total 800 520 Balance 568 116 92 Weight 128 lb 9.6 oz Intake: IV 588 336 42 Intake, Piggyback 300 300 50 Oral 480 Output: Urine 800 520 Urethral (Gutierrez) 800 520 Other: # Bowel Movements 1 1 - Physical Exam Head: Positive for: Atraumatic, Tenderness, Swelling. Negative for: Ecchymosis Pupils: Positive for: PERRL. Negative for: Sluggish, Non-Reactive Extroacular Muscles: Positive for: EOMI. Negative for: Gaze Palsy, Entrapment Conjunctiva: Positive for: Normal Mouth: Positive for: Moist Mucous Membranes Pharnyx: Positive for: Normal Neck: Positive for: Trachea Midline. Negative for: MIDLINE TENDERNESS, Paraspinal Tenderness, JVD, Lymphadenopathy, Bruit Respiratory/Chest: Positive for: Good Air Exchange, Wheezes (expiratory), Decreased Breath Sounds, Rhonchi (minimally appreciated lower lobes b/l). Negative for: Respiratory Distress, Accessory Muscle Use Cardiovascular: Positive for: Regular Rate and Rhythm, Normal S1, S2, Peripheal Pulses Present, Tachycardic. Negative for: Murmurs, Irregular Rhythm Abdomen: Positive for: Normal Bowel Sounds. Negative for: Tenderness, Distention Upper Extremity: Positive for: NORMAL PULSES, Capillary Refill < 2s, Other (L arm presents w/o edema, normal pulses; Rt arm edema). Negative for: Cyanosis, Tenderness Lower Extremity: Positive for: Edema, NORMAL PULSES. Negative for: CALF TENDERNESS Neurological: Positive for: GCS=15, Speech Normal Skin: Positive for: Warm, Dry Psychiatric: Positive for: Alert, Oriented x 3 - Medications Active Medications: Active Medications Generic Name Dose Route Start Last Admin Trade Name Freq PRN Reason Stop Dose Admin Acetaminophen 650 mg 07/06/16 11:55 Tylenol 325mg Tab PO Q6 PRN Pain, moderate (4-7) Albuterol Sulfate 2.5 mg 07/06/16 11:55 Albuterol 0.083% Inhal Aby (2.5 Mg/3 Ml) Ud INH RQ4 PRN Shortness of Breath Albuterol/Ipratropium 3 ml 07/06/16 12:00 07/08/16 07:44 Duoneb 3 Mg/0.5 Mg (3 Ml) Ud INH 3 ml RQID ANDREAS Administration Alprazolam 0.25 mg 07/06/16 11:55 Xanax PO 07/10/16 10:26 Q12 PRN Anxiety Anastrozole 1 mg 07/07/16 09:00 07/08/16 08:58 Arimidex 1 Mg Tab PO 1 mg DAILY ANDREAS Administration Baclofen 10 mg 07/06/16 22:00 07/07/16 21:17 Lioresal PO 10 mg HS ANDREAS Administration Enoxaparin Sodium 40 mg 07/08/16 09:00 07/08/16 08:20 Lovenox SC 40 mg DAILY ANDREAS Administration Protocol Gabapentin 600 mg 07/06/16 17:00 07/08/16 08:23 Neurontin PO 600 mg Q8 ANDREAS Administration Guaifenesin 600 mg 07/06/16 21:00 07/08/16 08:22 Mucinex La PO 600 mg Q12 ANDREAS Administration Fluconazole 100 mls @ 100 mls/hr 07/07/16 09:00 07/08/16 08:49 Diflucan Iv 200 Mg/100 Ml Ns IVPB 100 mls/hr DAILY ANDREAS Administration Hydrocortisone Sodium 100 mls @ 100 mls/hr 07/07/16 09:00 07/07/16 10:50 Succinate 50 mg/ Sodium IV 100 mls/hr Chloride DAILY ANDREAS Administration Linezolid 300 mls @ 300 mls/hr 07/06/16 21:00 07/07/16 20:12 Zyvox 600mg/300ml D5w IVPB 300 mls/hr Q12 ANDREAS Administration Meropenem 1 gm/ Sodium 100 mls @ 100 mls/hr 07/06/16 20:00 07/08/16 08:16 Chloride IVPB 100 mls/hr Q12@0800,2000 ANDREAS Administration Potassium Chloride/Dextrose/Sod Cl 1,000 mls @ 42 mls/hr 07/07/16 13:45 18:01 Potassium Chl 40 Meq In D5-1/2ns IV 07/08/16 13:46 42 mls/hr .[id number] ANDREAS Administration Lactobacillus Acidophilus 1 cap 07/06/16 17:00 07/08/16 08:49 Bacid Acidophilus PO 1 cap BID ANDREAS Administration Loperamide HCl 2 mg 07/06/16 11:55 07/08/16 08:57 Imodium PO 2 mg QID PRN Administration Loose stools Methimazole 5 mg 07/06/16 17:00 07/08/16 08:23 Tapazole PO 5 mg BID ANDREAS Administration Morphine Sulfate 2 mg 07/06/16 11:55 07/07/16 14:56 Morphine IVP 2 mg Q4 PRN Administration Pain, moderate (4-7) Multi-Ingredient Cream 1 applic 07/06/16 17:00 07/08/16 08:56 Hydrocerin Cream TOP 1 applic BID ANDREAS Administration Multivitamins/Minerals 1 tab 07/07/16 09:00 07/08/16 08:22 Therapeutic-M Tab PO 1 tab DAILY ANDREAS Administration Nitroglycerin 1 in 07/06/16 16:00 07/08/16 04:15 Nitro-Bid 2% Oint TOP Not Given Q6 [facility] Pantoprazole Sodium 40 mg 07/07/16 09:00 07/08/16 08:22 Protonix Ec Tab PO 40 mg DAILY ANDREAS Administration Roflumilast 500 mcg 07/07/16 09:00 07/08/16 08:56 Daliresp PO 500 mcg DAILY ANDREAS Administration Spironolactone 25 mg 07/07/16 09:00 07/08/16 08:22 Aldactone PO 25 mg DAILY ANDREAS Administration Zolpidem Tartrate 5 mg 07/06/16 11:55 07/07/16 21:59 Ambien PO 5 mg HS PRN Administration Sleep - Patient Studies Lab Studies: Microbiology Studies 02/28/17 Unknown Wound Culture - Preliminary Face NO GROWTH AFTER 24 HOURS Lab Studies 07/08/16 07/07/16 07/07/16 Range/Units 05:44 10:56 04:35 WBC 7.2 (4.8-10.8) K/uL RBC 3.50 L (3.80-5.20) Mil/uL Hgb 9.5 L (12.0-16.0) g/dL Hct 30.1 L (34.0-47.0) % MCV 85.9 (81.0-99.0) fl MCH 27.1 (27.0-31.0) pg MCHC 31.5 L (33.0-37.0) g/dL RDW 30.6 H (11.5-14.5) % Plt Count 127 L (130-400) K/uL pCO2 52 H (35-45) mm/Hg pO2 168 H (80-100) mm/Hg HCO3 32.5 H (21-28) mmol/L ABG pH 7.44 (7.35-7.45) ABG Total CO2 36.9 H (22-28) mmol/L ABG O2 Saturation 99.4 H (95-98) % ABG O2 Content 14.5 L (15-23) ML/dL ABG Base Excess 9.7 H (-2.0-3.0) mmol/L ABG Hemoglobin 10.4 L (11.7-17.4) g/dL ABG Carboxyhemoglobin 1.8 H (0.5-1.5) % POC ABG HHb (Measured) 0.6 (0.0-5.0) % ABG Methemoglobin 0.9 (0.0-3.0) % ABG O2 Capacity 14.6 L (16-24) mL/dL Tawanda Test Yes A-a O2 Difference 52.0 mm/Hg Hgb O2 Saturation 96.8 (95.0-98.0) % FiO2 40.0 % Blood Gas Comments 40%t piece Crit Value Called To Manuel richard Crit Value Called By 15 Crit Value Read Back Y Blood Gas Notified Time 1059 Sodium 138 (132-148) mmol/l Potassium 3.1 L (3.6-5.0) MMOL/L Chloride 99 (98-107) mmol/L Carbon Dioxide 32 H (22-30) mmol/L Anion Gap 10 (10-20) BUN 6 L (7-17) mg/dl Creatinine 0.3 L (0.7-1.2) mg/dL Est GFR ( Amer) > 60 Est GFR (Non-Af Amer) > 60 Random Glucose 71 (65-105) mg/dL Calcium 8.4 (8.4-10.2) mg/dL Phosphorus 3.5 (2.5-4.5) mg/dl Magnesium 1.9 (1.6-2.3) MG/DL Free T4 0.97 (0.78-2.19) ng/dL Thyroxine (T4) 6.17 (5.5-11.0) ug/dl Laboratory Results - last 24 hr 07/07/16 07/07/16 07/08/16 04:35 10:56 05:44 WBC 7.2 RBC 3.50 L Hgb 9.5 L Hct 30.1 L MCV 85.9 MCH 27.1 MCHC 31.5 L RDW 30.6 H Plt Count 127 L pCO2 52 H pO2 168 H HCO3 32.5 H ABG pH 7.44 ABG Total CO2 36.9 H ABG O2 Saturation 99.4 H ABG O2 Content 14.5 L ABG Base Excess 9.7 H ABG Hemoglobin 10.4 L ABG Carboxyhemoglobin 1.8 H POC ABG HHb (Measured) 0.6 ABG Methemoglobin 0.9 ABG O2 Capacity 14.6 L Tawanda Test Yes A-a O2 Difference 52.0 Hgb O2 Saturation 96.8 FiO2 40.0 Blood Gas Comments 40%t piece Crit Value Called To Manuel richard Crit Value Called By 15 Crit Value Read Back Y Blood Gas Notified Time 1059 Sodium 138 Potassium 3.1 L Chloride 99 Carbon Dioxide 32 H Anion Gap 10 BUN 6 L Creatinine 0.3 L Est GFR ( Amer) > 60 Est GFR (Non-Af Amer) > 60 Random Glucose 71 Calcium 8.4 Phosphorus 3.5 Magnesium 1.9 Free T4 0.97 Thyroxine (T4) 6.17 Review of Systems - Review of Systems Review of Systems: see HPI Critical Care Progress Note - Ventilator Checklist Head of Bed 30 Degrees: Yes PUD Prophalyxis: Yes DVT Prophylaxis: Yes - Nutrition Nutrition: Nutrition Category Date Time Status Dysphagia/Modified Consistency Diet [DIET] Diets 07/07/16 Dinner Active Assessment/Plan (1) VRE (vancomycin resistant enterococcus) culture positive Current Visit: Yes Status: Acute Comment: mandible osteomyelitis wound Cx+ resulted: VRE R subclavian PICC line Zosyn 3.375g IVPB Q8H Meropenem 1g IVPB Q12H Zyvox 600mg IVPB Q12H Diflucan 200mg Daily (2) Acute bronchitis with chronic obstructive pulmonary disease (COPD) Current Visit: Yes Status: Acute Priority: High Comment: Respiratory function maintained, improved from yesterday afternoon's episode of dyspnea Methylprednisone IV 50mg Q24 CXR is unchanged from yesterday HFNCl 45%/25LPM f/u respiratory function to ensure improvement (3) Hyperthyroidism Current Visit: No Status: Chronic Priority: High Comment: (4) Abscess Current Visit: Yes Status: Acute Priority: High
--- NOTE | 2016-07-08 10:30 | CP.PCM.PN ---
Subjective - Date & Time of Evaluation Date of Evaluation: 07/08/16 Time of Evaluation: 10:28 - Subjective Subjective: Pt is feeling better. Her respirations are bettwer, and there is much lesser pain in the right jaw I&D site. Her hgb today is 9.5gms. Will monitor the cbc Objective - Vital Signs/Intake and Output Vital Signs (last 24 hours): Temp Pulse Resp BP Pulse Ox 98.2 F 109 H 18 104/63 100 07/08/16 08:00 07/08/16 08:00 07/08/16 08:00 07/08/16 08:00 07/08/16 08:00 Intake and Output: 07/08/16 07/08/16 06:59 18:59 Intake Total 1484 92 Output Total 520 Balance 964 92 - Medications Medications: Current Medications Acetaminophen (Tylenol 325mg Tab) 650 mg PO Q6 PRN PRN Reason: Pain, moderate (4-7) Albuterol Sulfate (Albuterol 0.083% Inhal Aby (2.5 Mg/3 Ml) Ud) 2.5 mg INH RQ4 PRN PRN Reason: Shortness of Breath Albuterol/Ipratropium (Duoneb 3 Mg/0.5 Mg (3 Ml) Ud) 3 ml INH RQID [facility] Last Admin: 07/08/16 07:44 Dose: 3 ml Alprazolam (Xanax) 0.25 mg PO Q12 PRN PRN Reason: Anxiety Stop: 07/10/16 10:26 Anastrozole (Arimidex 1 Mg Tab) 1 mg PO DAILY [facility] Last Admin: 07/08/16 08:58 Dose: 1 mg Baclofen (Lioresal) 10 mg PO HS [facility] Last Admin: 07/07/16 21:17 Dose: 10 mg Enoxaparin Sodium (Lovenox) 40 mg SC DAILY ANDREAS PRN Reason: Protocol Last Admin: 07/08/16 08:20 Dose: 40 mg Gabapentin (Neurontin) 600 mg PO Q8 [facility] Last Admin: 07/08/16 08:23 Dose: 600 mg Guaifenesin (Mucinex La) 600 mg PO Q12 [facility] Last Admin: 07/08/16 08:22 Dose: 600 mg Fluconazole (Diflucan Iv 200 Mg/100 Ml Ns) 100 mls @ 100 mls/hr IVPB DAILY [facility] Last Admin: 07/08/16 08:49 Dose: 100 mls/hr Hydrocortisone Sodium Succinate 50 mg/ Sodium Chloride 100 mls @ 100 mls/hr IV DAILY [facility] Last Admin: 07/07/16 10:50 Dose: 100 mls/hr Linezolid (Zyvox 600mg/300ml D5w) 300 mls @ 300 mls/hr IVPB Q12 [facility] Last Admin: 07/08/16 10:03 Dose: 300 mls/hr Meropenem 1 gm/ Sodium (Chloride) 100 mls @ 100 mls/hr IVPB Q12@0800,2000 [facility] Last Admin: 07/08/16 08:16 Dose: 100 mls/hr Potassium Chloride/Dextrose/Sod Cl (Potassium Chl 40 Meq In D5-1/2ns) 1,000 mls @ 42 mls/hr IV .[id number] [facility] Stop: 07/08/16 13:46 Last Admin: 07/07/16 18:01 Dose: 42 mls/hr Lactobacillus Acidophilus (Bacid Acidophilus) 1 cap PO BID [facility] Last Admin: 07/08/16 08:49 Dose: 1 cap Loperamide HCl (Imodium) 2 mg PO QID PRN PRN Reason: Loose stools Last Admin: 07/08/16 08:57 Dose: 2 mg Methimazole (Tapazole) 5 mg PO BID [facility] Last Admin: 07/08/16 08:23 Dose: 5 mg Morphine Sulfate (Morphine) 2 mg IVP Q4 PRN PRN Reason: Pain, moderate (4-7) Last Admin: 07/07/16 14:56 Dose: 2 mg Multi-Ingredient Cream (Hydrocerin Cream) 1 applic TOP BID [facility] Last Admin: 07/08/16 08:56 Dose: 1 applic Multivitamins/Minerals (Therapeutic-M Tab) 1 tab PO DAILY [facility] Last Admin: 07/08/16 08:22 Dose: 1 tab Nitroglycerin (Nitro-Bid 2% Oint) 1 in TOP Q6 [facility] Last Admin: 07/08/16 04:15 Dose: Not Given Pantoprazole Sodium (Protonix Ec Tab) 40 mg PO DAILY [facility] Last Admin: 07/08/16 08:22 Dose: 40 mg Roflumilast (Daliresp) 500 mcg PO DAILY [facility] Last Admin: 07/08/16 08:56 Dose: 500 mcg Spironolactone (Aldactone) 25 mg PO DAILY [facility] Last Admin: 07/08/16 08:22 Dose: 25 mg Zolpidem Tartrate (Ambien) 5 mg PO HS PRN PRN Reason: Sleep Last Admin: 07/07/16 21:59 Dose: 5 mg - Labs Labs: 07/08/16 05:44 07/08/16 05:44 PT 11.0 SECONDS (9.6-11.2) 06/09/16 04:10 INR 1.06 (0.92-1.08) 06/09/16 04:10 APTT 27.5 SECONDS (23.3-32.5) 06/03/16 22:33
[2016-07-08] MEDS: Hydrocortisone- 50 MG in Sodium Chloride 0.9% 100 ML IV SCH (11:27)
--- NOTE | 2016-07-08 20:20 | PN ---
DATE: 07/08/2016 ROOM: 434 ICU. SUBJECTIVE: This is a 66-year-old female with recent overt hyperthyroidism, although presented here with initial episodes of hypothyroidism and is now being followed closely for metabolic management. She also has supervening congestive heart failure and is being followed closely for hemodynamic monit oring in the ICU as noted. She is still on the hydrocortisone given as 50 mg once daily as tapered d own and noted. Her latest chemistries showed a BUN of 6, sodium 138, potassium 3.1, chloride 99, CO2 32, glucose 71 and creatinine 0.3. Her latest thyroid study showed a T4 of 6.17 with a free T4 of 0 .97 and TSH of 1.89, so at this time, we will continue the low-dose medical therapy with Tapazole gi radha as 5 mg b.i.d. after meals as ordered. We will titrate incrementally as indicated to optimize me tabolic control. We will follow. Polly Vu MD cc: [id number] TT: 07/08/2016 20:19:47 Confirmation # [id number] Dictation # [id number] valentina
[2016-07-09] MEDS: Nitroglycerin 2% 1GM UD TOP SCH ×3 (04:00→16:01)
[2016-07-09] MEDS: Albuterol-Ipratrop 3 mg / 0.5 (3 ml) UD INH SCH (07:35)
[2016-07-09 07:41] LABS: MEAN CELL VOLUME 85.1 fl (81.0-99.0); MEAN CORPUSCULAR HEMOGLOBIN 26.6 pg (27.0-31.0); MEAN CORPUSCULAR HGB CONC 31.2 g/dL (33.0-37.0); WHITE BLOOD COUNT 8.1 K/uL (4.8-10.8)
[2016-07-09 07:58] LABS: ALKALINE PHOSPHATASE 83 U/L (38-126); ALT/SGPT 32 U/L (9-52); AST/SGOT 19 U/L (14-36); BILIRUBIN,TOTAL 0.1 mg/dl (0.2-1.3); BLOOD UREA NITROGEN 5 mg/dl (7-17); CALCIUM 8.7 mg/dL (8.4-10.2); CARBON DIOXIDE 34 mmol/L (22-30); CHLORIDE 97 mmol/L (98-107); GFR AFRICAN-AMERICAN > 60; GLUCOSE,RANDOM 107 mg/dL (65-105); POTASSIUM 4.4 MMOL/L (3.6-5.0); SODIUM 136 mmol/l (132-148); TOTAL PROTEIN 4.7 G/DL (6.3-8.2)
[2016-07-09] MEDS: methIMAzole 5 MG TAB PO SCH ×3 (08:26→16:07)
[2016-07-09] MEDS: Multivitamin With Minerals Tab PO SCH (08:27)
[2016-07-09] MEDS: Pantoprazole 40 mg EC Tab PO SCH (08:27)
[2016-07-09] MEDS: guaiFENesin 600 mg ER Tab PO SCH (08:27)
[2016-07-09] MEDS: Meropenem 1 GM in Sodium Chloride 0.9% 100 ML IVPB SCH ×2 (08:28→20:27)
[2016-07-09] MEDS: Enoxaparin 40 mg Syringe SC SCH (08:28)
[2016-07-09] MEDS ORDERED: Potassium Chloride 40 mEq/30 ml LIQ UD PO ONE (08:30)
[2016-07-09 08:31] LABS: PARTIAL THROMBOPLASTIN TIME 27.7 SECONDS (23.3-32.5)
[2016-07-09] MEDS: Linezolid 600 mg in D5W 300 ml 300 ML IVPB SCH ×2 (08:39→20:28)
--- NOTE | 2016-07-09 08:45 | CP.CCUPN ---
CCU Subjective - Physician Review Subjective (Free Text): 07/09/16 11:22 Pt is seen and examined at her bedside in the ICU. She had recently been intubated following an episode of dyspnea with her O2% dipping to the 70s and ST at 140s. Earlier in the morning she was seen sleeping comfortably without any gasping or other signs of dyspnea. During this earlier moment, upon waking up she stated having an increased need to cough with mild dyspnea. She is currently intubated, but she had denied f/c/n/v/d/c, chest pain, abdominal pain , or myalgias. CCU Objective - Vital Signs / Intake & Output Vital Signs (Last 4 hours): Vital Signs Temp Pulse Resp BP Pulse Ox 07/09/16 08:00 98.9 F 126 H 24 107/60 95 07/09/16 06:00 107 H 19 85/51 L 100 07/09/16 05:46 20 Intake and Output (Last 8hrs): Intake & Output 07/08/16 07/09/16 07/09/16 22:59 06:59 14:59 Intake Total 368 900 10 Output Total 700 1220 Balance -332 -320 10 Weight 127 lb 12.8 oz Intake: IV 168 50 10 Intake, Piggyback 400 Oral 200 450 Output: Urine 700 1200 Urethral (Gutierrez) 700 1200 Stool 20 Other: # Bowel Movements 1 - Physical Exam Head: Positive for: Atraumatic, Swelling (of R mandible). Negative for: Ecchymosis Pupils: Positive for: PERRL. Negative for: Sluggish, Non-Reactive Extroacular Muscles: Positive for: EOMI. Negative for: Gaze Palsy, Entrapment Conjunctiva: Positive for: Normal Mouth: Positive for: Moist Mucous Membranes Pharnyx: Positive for: Normal Neck: Positive for: Trachea Midline. Negative for: MIDLINE TENDERNESS, Paraspinal Tenderness, JVD, Lymphadenopathy, Bruit Respiratory/Chest: Positive for: Good Air Exchange, Wheezes (expiratory), Decreased Breath Sounds, Rhonchi (minimally appreciated throughout). Negative for: Respiratory Distress, Accessory Muscle Use Cardiovascular: Positive for: Regular Rate and Rhythm, Normal S1, S2, Peripheal Pulses Present, Tachycardic. Negative for: Murmurs, Irregular Rhythm Abdomen: Positive for: Normal Bowel Sounds. Negative for: Tenderness Upper Extremity: Positive for: NORMAL PULSES, Capillary Refill < 2s, Other (L arm presents w/o edema, normal pulses; Rt arm edema). Negative for: Cyanosis, Tenderness Lower Extremity: Positive for: Edema, NORMAL PULSES. Negative for: CALF TENDERNESS Neurological: Positive for: GCS=15, Other (full exam limited due to recent intubation) Skin: Positive for: Warm, Dry Psychiatric: Positive for: Alert, Oriented x 3 - Medications Active Medications: Active Medications Generic Name Dose Route Start Last Admin Trade Name Freq PRN Reason Stop Dose Admin Acetaminophen 650 mg 07/06/16 11:55 Tylenol 325mg Tab PO Q6 PRN Pain, moderate (4-7) Albuterol Sulfate 2.5 mg 07/06/16 11:55 Albuterol 0.083% Inhal Aby (2.5 Mg/3 Ml) Ud INH RQ4 PRN Shortness of Breath Albuterol/Ipratropium 3 ml 07/06/16 12:00 07/09/16 07:35 Duoneb 3 Mg/0.5 Mg (3 Ml) Ud INH 3 ml RQID ANDREAS Administration Alprazolam 0.25 mg 07/06/16 11:55 Xanax PO 07/10/16 10:26 Q12 PRN Anxiety Anastrozole 1 mg 07/07/16 09:00 07/09/16 08:35 Arimidex 1 Mg Tab PO 1 mg DAILY ANDREAS Administration Baclofen 10 mg 07/06/16 22:00 07/08/16 21:58 Lioresal PO 10 mg HS ANDREAS Administration Enoxaparin Sodium 40 mg 07/08/16 09:00 07/09/16 08:28 Lovenox SC 40 mg DAILY ANDREAS Administration Protocol Gabapentin 600 mg 07/06/16 17:00 07/09/16 08:31 Neurontin PO 600 mg Q8 ANDREAS Administration Guaifenesin 600 mg 07/06/16 21:00 07/09/16 08:27 Mucinex La PO 600 mg Q12 ANDREAS Administration Fluconazole 100 mls @ 100 mls/hr 07/07/16 09:00 07/08/16 08:49 Diflucan Iv 200 Mg/100 Ml Ns IVPB 100 mls/hr DAILY ANDRE[facility] Administration Hydrocortisone Sodium 100 mls @ 100 mls/hr 07/07/16 09:00 07/08/16 11:27 Succinate 50 mg/ Sodium IV 100 mls/hr Chloride DAILY ANDREAS Administration Linezolid 300 mls @ 300 mls/hr 07/06/16 21:00 07/09/16 08:39 Zyvox 600mg/300ml D5w IVPB 300 mls/hr Q12 [facility] Administration Meropenem 1 gm/ Sodium 100 mls @ 100 mls/hr 07/06/16 20:00 07/09/16 08:28 Chloride IVPB 100 mls/hr Q12@0800,2000 AND[facility] Administration Lactobacillus Acidophilus 1 cap 07/06/16 17:00 07/08/16 17:01 Bacid Acidophilus PO 1 cap BID ANDREAS Administration Loperamide HCl 2 mg 07/06/16 11:55 07/08/16 08:57 Imodium PO 2 mg QID PRN Administration Loose stools Methimazole 5 mg 07/06/16 17:00 07/09/16 08:27 Tapazole PO 5 mg BID ANDREAS Administration Morphine Sulfate 2 mg 07/06/16 11:55 07/09/16 02:39 Morphine IVP 2 mg Q4 PRN Administration Pain, moderate (4-7) Multi-Ingredient Cream 1 applic 07/06/16 17:00 07/08/16 17:02 Hydrocerin Cream TOP 1 applic BID ANDREAS Administration Multivitamins/Minerals 1 tab 07/07/16 09:00 07/09/16 08:27 Therapeutic-M Tab PO 1 tab DAILY ANDRE[facility] Administration Nitroglycerin 1 in 07/06/16 16:00 07/09/16 04:00 Nitro-Bid 2% Oint TOP Not Given Q6 [facility]RE[facility] Pantoprazole Sodium 40 mg 07/07/16 09:00 07/09/16 08:27 Protonix Ec Tab PO 40 mg DAILY [facility] Administration Roflumilast 500 mcg 07/07/16 09:00 07/09/16 08:27 Daliresp PO 500 mcg DAILY [facility] Administration Spironolactone 25 mg 07/07/16 09:00 07/09/16 08:31 Aldactone PO 25 mg DAILY [facility]RE[facility] Administration Zolpidem Tartrate 5 mg 07/06/16 11:55 07/08/16 22:43 Ambien PO 5 mg HS PRN Administration Sleep - Patient Studies Lab Studies: Microbiology Studies 07/06/16 Unknown Gram Stain - Final Face Wound Culture - Preliminary No growth. Lab Studies 07/09/16 Range/Units 07:30 WBC 8.1 (4.8-10.8) K/uL RBC 3.52 L (3.80-5.20) Mil/uL Hgb 9.4 L (12.0-16.0) g/dL Hct 30.0 L (34.0-47.0) % MCV 85.1 (81.0-99.0) fl MCH 26.6 L (27.0-31.0) pg MCHC 31.2 L (33.0-37.0) g/dL RDW 31.0 H (11.5-14.5) % Plt Count 123 L (130-400) K/uL Sodium 136 (132-148) mmol/l Potassium 4.4 (3.6-5.0) MMOL/L Chloride 97 L (98-107) mmol/L Carbon Dioxide 34 H (22-30) mmol/L Anion Gap 9 L (10-20) BUN 5 L (7-17) mg/dl Creatinine 0.3 L (0.7-1.2) mg/dL Est GFR ( Amer) > 60 Est GFR (Non-Af Amer) > 60 Random Glucose 107 H (65-105) mg/dL Calcium 8.7 (8.4-10.2) mg/dL Total Bilirubin 0.1 L (0.2-1.3) mg/dl AST 19 (14-36) U/L ALT 32 (9-52) U/L Alkaline Phosphatase 83 (38-126) U/L Total Protein 4.7 L (6.3-8.2) G/DL Albumin 2.3 L (3.5-5.0) g/dL Globulin 2.4 (2.2-3.9) gm/dL Albumin/Globulin Ratio 1.0 (1.0-2.1) Laboratory Results - last 24 hr 07/09/16 07:30 WBC 8.1 RBC 3.52 L Hgb 9.4 L Hct 30.0 L MCV 85.1 MCH 26.6 L MCHC 31.2 L RDW 31.0 H Plt Count 123 L Sodium 136 Potassium 4.4 Chloride 97 L Carbon Dioxide 34 H Anion Gap 9 L BUN 5 L Creatinine 0.3 L Est GFR ( Amer) > 60 Est GFR (Non-Af Amer) > 60 Random Glucose 107 H Calcium 8.7 Total Bilirubin 0.1 L AST 19 ALT 32 Alkaline Phosphatase 83 Total Protein 4.7 L Albumin 2.3 L Globulin 2.4 Albumin/Globulin Ratio 1.0 Review of Systems - Review of Systems Review of Systems: see HPI Critical Care Progress Note - Ventilator Checklist Head of Bed 30 Degrees: Yes Daily Spontaneous Breathing Trial: Yes PUD Prophalyxis: Yes DVT Prophylaxis: Yes Oral Care with Chlorhexidine Gluconate {CHG}: Yes - Vent Settings MODE:: PRVC TIDAL VOLUME:: 400 RESP RATE:: 16 FIO2:: 50 PEEP:: 5 - Nutrition Nutrition: Nutrition Category Date Time Status Dysphagia/Modified Consistency Diet [DIET] Diets 07/07/16 Dinner Active Assessment/Plan (1) Acute bronchitis with chronic obstructive pulmonary disease (COPD) Current Visit: Yes Status: Acute Priority: High Comment: Respiratory distress w ST 140s and O2% in 70s led to intubation this morning -PRVC AC: RR 16, TV 400, PEEP 5, FIO2 50% -earlier, she had presented w rhonchi throughout and mild/mod expiratory wheezes Methylprednisone IV 50mg Q24 CXR ordered for intubation placement f/u respiratory function f/u final results of bronchial washing (2) VRE (vancomycin resistant enterococcus) culture positive Current Visit: Yes Status: Acute Comment: mandible osteomyelitis wound Cx+ resulted: VRE R subclavian PICC line Zosyn 3.375g IVPB Q8H Meropenem 1g IVPB Q12H Zyvox 600mg IVPB Q12H Diflucan 200mg Daily (3) Hyperthyroidism Current Visit: No Status: Chronic Priority: High Comment: Methimazole 5mg PO BID (4) Abscess Current Visit: Yes Status: Acute Priority: High
[2016-07-09] MEDS ORDERED: Albumin Human 25% (12.5 gm/50 ml) IV ONE (10:08)
--- NOTE | 2016-07-09 10:11 | CP.PCM.PN ---
Subjective - Date & Time of Evaluation Date of Evaluation: 07/09/16 Time of Evaluation: 09:30 - Subjective Subjective: No fever Pt sl dyspneic at present also tachycardic to 125 denies abd pain Minimal drainage from Ginger drain Objective - Vital Signs/Intake and Output Vital Signs (last 24 hours): Temp Pulse Resp BP Pulse Ox 98.9 F 126 H 24 107/60 95 07/09/16 08:00 07/09/16 08:00 07/09/16 08:00 07/09/16 08:00 07/09/16 08:00 Intake and Output: 07/09/16 07/09/16 06:59 18:59 Intake Total 900 10 Output Total 1220 Balance -320 10 - Medications Medications: Current Medications Acetaminophen (Tylenol 325mg Tab) 650 mg PO Q6 PRN PRN Reason: Pain, moderate (4-7) Albumin Human (Albumin Human 25% (12.5 Gm/50 Ml)) 12.5 gm IV ONCE ONE Stop: 07/09/16 10:09 Albuterol Sulfate (Albuterol 0.083% Inhal Aby (2.5 Mg/3 Ml) Ud) 2.5 mg INH RQ4 PRN PRN Reason: Shortness of Breath Albuterol/Ipratropium (Duoneb 3 Mg/0.5 Mg (3 Ml) Ud) 3 ml INH RQID [facility] Last Admin: 07/09/16 07:35 Dose: 3 ml Alprazolam (Xanax) 0.25 mg PO Q12 PRN PRN Reason: Anxiety Stop: 07/10/16 10:26 Anastrozole (Arimidex 1 Mg Tab) 1 mg PO DAILY [facility] Last Admin: 07/09/16 08:35 Dose: 1 mg Baclofen (Lioresal) 10 mg PO HS [facility] Last Admin: 07/08/16 21:58 Dose: 10 mg Enoxaparin Sodium (Lovenox) 40 mg SC DAILY [facility] PRN Reason: Protocol Last Admin: 07/09/16 08:28 Dose: 40 mg Gabapentin (Neurontin) 600 mg PO Q8 [facility] Last Admin: 07/09/16 08:31 Dose: 600 mg Fluconazole (Diflucan Iv 200 Mg/100 Ml Ns) 100 mls @ 100 mls/hr IVPB DAILY [facility] Last Admin: 07/08/16 08:49 Dose: 100 mls/hr Hydrocortisone Sodium Succinate 50 mg/ Sodium Chloride 100 mls @ 100 mls/hr IV DAILY [facility] Last Admin: 07/08/16 11:27 Dose: 100 mls/hr Linezolid (Zyvox 600mg/300ml D5w) 300 mls @ 300 mls/hr IVPB Q12 [facility] Last Admin: 07/09/16 08:39 Dose: 300 mls/hr Meropenem 1 gm/ Sodium (Chloride) 100 mls @ 100 mls/hr IVPB Q12@0800,2000 [facility] Last Admin: 07/09/16 08:28 Dose: 100 mls/hr Lactobacillus Acidophilus (Bacid Acidophilus) 1 cap PO BID [facility] Last Admin: 07/08/16 17:01 Dose: 1 cap Loperamide HCl (Imodium) 2 mg PO QID PRN PRN Reason: Loose stools Last Admin: 07/08/16 08:57 Dose: 2 mg Methimazole (Tapazole) 5 mg PO BID [facility] Last Admin: 07/09/16 08:27 Dose: 5 mg Morphine Sulfate (Morphine) 2 mg IVP Q4 PRN PRN Reason: Pain, moderate (4-7) Last Admin: 07/09/16 02:39 Dose: 2 mg Multi-Ingredient Cream (Hydrocerin Cream) 1 applic TOP BID [facility] Last Admin: 07/08/16 17:02 Dose: 1 applic Multivitamins/Minerals (Therapeutic-M Tab) 1 tab PO DAILY [facility] Last Admin: 07/09/16 08:27 Dose: 1 tab Nitroglycerin (Nitro-Bid 2% Oint) 1 in TOP Q6 [facility] Last Admin: 07/09/16 04:00 Dose: Not Given Pantoprazole Sodium (Protonix Ec Tab) 40 mg PO DAILY [facility] Last Admin: 07/09/16 08:27 Dose: 40 mg Roflumilast (Daliresp) 500 mcg PO DAILY [facility] Last Admin: 07/09/16 08:27 Dose: 500 mcg Spironolactone (Aldactone) 25 mg PO DAILY [facility] Last Admin: 07/09/16 08:31 Dose: 25 mg Zolpidem Tartrate (Ambien) 5 mg PO HS PRN PRN Reason: Sleep Last Admin: 07/08/16 22:43 Dose: 5 mg - Labs Labs: 07/09/16 07:30 07/09/16 07:30 PT 11.2 SECONDS (9.6-11.2) 07/09/16 08:00 INR 1.08 (0.92-1.08) 07/09/16 08:00 APTT 27.7 SECONDS (23.3-32.5) 07/09/16 08:00 - Constitutional Appears: Chronically Ill - Head Exam Head Exam: NORMAL INSPECTION, NORMOCEPHALIC - Eye Exam Eye Exam: EOMI, Normal appearance Pupil Exam: NORMAL ACCOMMODATION - ENT Exam ENT Exam: Mucous Membranes Dry, Normal External Ear Exam Additional comments: right facial abscess with Snyder drain in place, + tenderness to touch - Neck Exam Neck Exam: Full ROM. absent: Meningismus - Respiratory Exam Respiratory Exam: + rhonchi , mild wheezing on High Flow Oxygen - Cardiovascular Exam Cardiovascular Exam: REGULAR RHYTHM, +S1, +S2. tachycardic - GI/Abdominal Exam GI & Abdominal Exam: Soft, Normal Bowel Sounds. absent: Tenderness - Extremities Exam Extremities Exam: Normal Capillary Refill, bipedal Pedal Edema Additional comments: abrasions LE right shoulder deformity RUE edema - Back Exam Back Exam: absent: CVA tenderness (L), CVA tenderness (R) - Neurological Exam Neurological Exam: Alert, Awake, CN II-XII Intact, Oriented x3 - Psychiatric Exam Psychiatric exam: Normal Affect, Normal Mood - Skin Skin Exam: Dry, Normal Color, Warm Assessment and Plan (1) Acute and chronic respiratory failure with hypercapnia Status: Acute (2) Osteomyelitis of mandible Status: Acute (3) Hypothyroidism Status: Acute (4) Acute exacerbation of chronic obstructive pulmonary disease (COPD) Status: Acute (5) HTN (hypertension) Status: Chronic (6) Hx of breast cancer Status: Chronic (7) Acute exacerbation of CHF (congestive heart failure) Status: Acute (8) Hypokalemia Status: Acute (9) Facial abscess Status: Acute (10) DVT prophylaxis Status: Acute - Assessment and Plan (Free Text) Assessment: 66 y/o female PMH COPD, bilateral breast CA s/p chemo and radiation 8 years ago , HTN, Hyperthyroidism presented with 2 week history of worsening bilateral lower extremity swelling and weakness, unable to get herself up to her walker. Patient has mild dyspnea at baseline. She also came with a large right facial swelling for almost 2 weeks and was taking PO antibiotics prescribed by her dentist. Patient was admitted for generalized weakness , Hyponatremia and Facial abscess. She was started on IV antibiotics for facial abscess and Lasix IV with fluid restriction for LE edema. Maxillofacial Ct showed possible abscess accumulation. Evaluated by Oromaxillofacial surgeon and underwent Incision and drainage of abscess. Bone scan showed possible osteomyelitis . ID recommends 4-6 wks IV abx treatment. During this hospitalization noted to have increased dyspnea at rest and more so with minimal activity, decreased air entry bilaterally and increased work of breathing. She was started on high flow O2, Higher doses of theophylline and IV hydrocortisone. CTA chest and LE doppler showed no DVT , except right cephallic cherelle thrombosis . She was transferred to ICU for close monitoring for tachypnea and tachycardia. She underwent IR drainage on 06/24 of right facial abscess due to re accumulation and cultures came positive for VRE and bria. Antibiotics were changed to Zyvox , Meropenem and Fluconazone. Despite drainage and IV antibiotics she still kept complaining of pain to right supramandibular area with increased swelling. Repeat CT showed abscess formation. Patient underwent I&D in OR 07/06/16 with ginger drainage placement. She continues to have episodes of resp distress - tachypneic , tachycardic , with chest congestion , unable to expectorate despite high flow O2 therapy, Duonebs and Corticosteroids. Theophylline discontinued and Daliresp started. 07/07/16 underwent Bronchoscopy while still intubated post maxillofacial abscess I&D with BAL of thick florez colored secretions that were sent for cultures. 1. Acute on Chronic Respiratory Insufficiency with hypercapnea-- multifactorial Most likely secondary to COPD exacerbation with acute bronchitis and CHF exacerbation s/p bronchoscopy 07/07/16 with BAL of florez colored thick secretions for LLL, RLL and RML on higher FIO2 45 % and 25 LPM due to episode of desaturation CXR today showed atelectasis with minimal pleural effusion Continue Matilda Benz following patient closely Discontinued ASA, Coreg , Theophylline and started Daliresp tapered Hydrocortisone to 50 mg IV daily on very low dose Xanax 0.25 bid prn as this seem to help when pt gets very anxious, tachypenic and tachycardic 2. Chest Pain , prob sec to Anxiety, ACS ruled out with recurrent pressure like chest pain on and off cardiology consult with Dr. Luu appreciated Trop -- negative and EKG showed no ST-T wave changes Most likely atypical chest pain related to anxiety , hypokalemia and COPD. There is no signs of ischemia 3. Facial abscess with mandibular Osteomyelitis s/p drainage of abscess with penreose drain placement s/p Incision and drainage on 06/[address] Anderson maxillofacial surgeon pathology report showed inflammatory cells, no malignancy Nuclear Bone Scan suggestive of osteomyelitis initial cultures were with no growth so was started on Zosyn ,and Clindamycin IV ID consult with Dr Obrien appreciated .. Recommended IV abx 6 wks total ( # Day ) Tunneled central line placed for long winder tender IV antibiotics- this will need to be d/c by IR after IV abx treatment is completed ( as discussed with Dr Gunter - pt was informed of need to see IR after abx tx) Due to increased swelling and pain patient underwent drainage of facial collection by IR on 06/24 and 24 ml yellow fluid obtained. Cultures reported as VRE and Bria Antibiotics changed to Zyvox , Meropenem and Fluconazole ENT eval with Dr. Priest appreciated. He recommended reevaluation by maxillofacial surgeon due recurrence odf swelling despite of I&, drainage and antibiotics s/p Abscess drainage with I& D done 07/06/16 in OR with ginger drain placement Continue current IV antibiotics. Follow up repeat cultures 4. Bilateral LE edema sec to CHF exacerbation with diastolic dysfxn still with LE edema bilateral 2 + diuresing well Echo showed EF 40-45 % and dilated RV continue fluid restriction Promote ambulation 5. Hypokalemia multifactorial diuretic induced , Albuterol, Hypothyroidism and GI loss ( had 5 BM ) off Lasix Continue KCl runs and PO replacement as needed Nephro consult appreciated CT of abd showed no adrenal mass 6 .Hyponatremia, resolved most likely secondary to solute depletion and infection Continue fluid restriction 7.Hx breast ca, bilateral stable, s/p bilateral mastectomy continue arimidex 8. Tachycardia -- multifactorial Hx of HTN was on verapamil at home ( 80mg tid) but decreased dose due to low BP and now discontinued as may contribute to leg edema continue monitoring Albuterol changed to Xopenex 9. Hypothyroidism/ Hyperthyroidism patient has history of hyperthyroidism , was on Methimazole and noticed to had developed hypothyroidism so Methimazole was d/c and she was started on Po levothyroxine this admission , TSH then went down and Metrhimazole restarted At Methimazole 5 mg po bid restarted as discussed with Dr Vu 10. Anemia, chronic dis monitor anemia work up showed depleted iron stores Venofer IV given s/p 2 units PRBC transfusion Hgb 9.5 11. Right cephalic vein thrombosis ( superficial vein) lovenox 12.DVT ppx on lovenox
--- NOTE | 2016-07-09 10:13 | CP.PCM.PN ---
Subjective - Date & Time of Evaluation Date of Evaluation: 07/09/16 Time of Evaluation: 09:59 - Subjective Subjective: Seen on morning rounds in the ICU. Case discussed with the automatic pad making machine operator and hospitalist, medical record reviewed. Tachycardia 120BPM+ this morning, anxious. Not given tapazole last night (?not available). Initial report on bronchial washings shows few gram negative rods. Tachypneic >20BPM this morning 2 hrs post aerosol therapy with Duoneb. Dependant edema still ++ with weeping from RUE. No cyanosis. Plasma proteins remain low, oral intake is still low. No dullness on percussion of the chest. No subcutaneous emphysema. Rhonchi auscultated in all lung corral. E phase is prolonged. E wheezes, low pitched are heard bilaterally. Heart rate 120+n sinus tachy with APC's. Abdomen is soft with + bowel sounds, non-tender. Labs reviewed. Hgb dropping slowly, K replaced, proteins remain very low, CO2 increasing. Continues to be well oxygenated, but dyspneic/tachypneic. Await final ID from bronchial washings. Protein supplementation. Stop guaifenesin and hold one dose roflumilast (potential drug interactions). High flow raised slightly to 35LPM. Aerosol changed to levalbuterol with ipratropium Q8H. Objective - Vital Signs/Intake and Output Vital Signs (last 24 hours): Temp Pulse Resp BP Pulse Ox 98.9 F 126 H 24 107/60 95 07/09/16 08:00 07/09/16 08:00 07/09/16 08:00 07/09/16 08:00 07/09/16 08:00 Intake and Output: 07/08/16 07/09/16 23:59 11:59 Intake Total 852 910 Output Total 700 1220 Balance 152 -310 - Medications Medications: Current Medications Acetaminophen (Tylenol 325mg Tab) 650 mg PO Q6 PRN PRN Reason: Pain, moderate (4-7) Albuterol Sulfate (Albuterol 0.083% Inhal Aby (2.5 Mg/3 Ml) Ud) 2.5 mg INH RQ4 PRN PRN Reason: Shortness of Breath Albuterol/Ipratropium (Duoneb 3 Mg/0.5 Mg (3 Ml) Ud) 3 ml INH RQID [facility] Last Admin: 07/09/16 07:35 Dose: 3 ml Alprazolam (Xanax) 0.25 mg PO Q12 PRN PRN Reason: Anxiety Stop: 07/10/16 10:26 Anastrozole (Arimidex 1 Mg Tab) 1 mg PO DAILY [facility] Last Admin: 07/09/16 08:35 Dose: 1 mg Baclofen (Lioresal) 10 mg PO HS [facility] Last Admin: 07/08/16 21:58 Dose: 10 mg Enoxaparin Sodium (Lovenox) 40 mg SC DAILY [facility] PRN Reason: Protocol Last Admin: 07/09/16 08:28 Dose: 40 mg Gabapentin (Neurontin) 600 mg PO Q8 [facility] Last Admin: 07/09/16 08:31 Dose: 600 mg Fluconazole (Diflucan Iv 200 Mg/100 Ml Ns) 100 mls @ 100 mls/hr IVPB DAILY [facility] Last Admin: 07/08/16 08:49 Dose: 100 mls/hr Hydrocortisone Sodium Succinate 50 mg/ Sodium Chloride 100 mls @ 100 mls/hr IV DAILY [facility] Last Admin: 07/08/16 11:27 Dose: 100 mls/hr Linezolid (Zyvox 600mg/300ml D5w) 300 mls @ 300 mls/hr IVPB Q12 [facility] Last Admin: 07/09/16 08:39 Dose: 300 mls/hr Meropenem 1 gm/ Sodium (Chloride) 100 mls @ 100 mls/hr IVPB Q12@0800,2000 [facility] Last Admin: 07/09/16 08:28 Dose: 100 mls/hr Lactobacillus Acidophilus (Bacid Acidophilus) 1 cap PO BID [facility] Last Admin: 07/08/16 17:01 Dose: 1 cap Loperamide HCl (Imodium) 2 mg PO QID PRN PRN Reason: Loose stools Last Admin: 07/08/16 08:57 Dose: 2 mg Methimazole (Tapazole) 5 mg PO BID [facility] Last Admin: 07/09/16 08:27 Dose: 5 mg Morphine Sulfate (Morphine) 2 mg IVP Q4 PRN PRN Reason: Pain, moderate (4-7) Last Admin: 07/09/16 02:39 Dose: 2 mg Multi-Ingredient Cream (Hydrocerin Cream) 1 applic TOP BID [facility] Last Admin: 07/08/16 17:02 Dose: 1 applic Multivitamins/Minerals (Therapeutic-M Tab) 1 tab PO DAILY [facility] Last Admin: 07/09/16 08:27 Dose: 1 tab Nitroglycerin (Nitro-Bid 2% Oint) 1 in TOP Q6 [facility] Last Admin: 07/09/16 04:00 Dose: Not Given Pantoprazole Sodium (Protonix Ec Tab) 40 mg PO DAILY [facility] Last Admin: 07/09/16 08:27 Dose: 40 mg Roflumilast (Daliresp) 500 mcg PO DAILY [facility] Last Admin: 07/09/16 08:27 Dose: 500 mcg Spironolactone (Aldactone) 25 mg PO DAILY [facility] Last Admin: 07/09/16 08:31 Dose: 25 mg Zolpidem Tartrate (Ambien) 5 mg PO HS PRN PRN Reason: Sleep Last Admin: 07/08/16 22:43 Dose: 5 mg - Labs Labs: 07/09/16 07:30 07/09/16 07:30 PT 11.2 SECONDS (9.6-11.2) 07/09/16 08:00 INR 1.08 (0.92-1.08) 07/09/16 08:00 APTT 27.7 SECONDS (23.3-32.5) 07/09/16 08:00 Assessment and Plan (1) Acute bronchitis with chronic obstructive pulmonary disease (COPD) Status: Acute (2) Hyperthyroidism Status: Chronic (3) Abscess Status: Acute (4) Hypokalemia Status: Acute
[2016-07-09] MEDS: Fluconazole IV 200mg/100 ml NS 100 ML IVPB SCH (10:53)
--- NOTE | 2016-07-09 11:23 | CP.CCUPN ---
CCU Subjective - Physician Review Subjective (Free Text): Cardiac Rehab Nurse Procedure Note INTUBATION: Indications: Recurrent episode of resp distress manifest by tachypnena, accessory muscle use and desaturation despite increasing flow and delivered Oxygen on HFNC. No Advance Directives noted. # 7.5 mm ETT inserted ivana-tracheally without difficulty into good position with +ETCO2 and satisfactory BS bilaterally, improved SPO2 up to 100%. No other anatomical abnormality noted, nor any dried secretions. ETT secured in place at 23cm abhilash at the lips. Patient placed on MV: AC 12, TV 350ml, 40% oxygen with PEEP 5. CXR ordered to confirm placement. Sputum Cultures to be obtained.
[2016-07-09] MEDS ORDERED: Albuterol-Ipratrop 3 mg / 0.5 (3 ml) UD ONE (11:55)
--- NOTE | 2016-07-09 12:03 | VASCULAR ---
Right cheek abscess drainage History: Right apical abscess. Procedure and findings: The procedure was explained to the patient in detail including relative risks and benefits. The patient understood the procedure and provided written informed consent. The right buccal region examined, o'clock joint collection was identified just deep to the skin surface. The right buccal region was prepped and draped in the usual sterile techniques. Initial ultrasonography images were obtained. These demonstrated a fluid collection just deep to the skin surface with skin thickening. Multiple echogenic foci seen within the collection likely consistent with debris. 1 percent lidocaine was used to anesthetize the skin and the subcutaneous tissue of the access point. A 5 Lao coaxial centesis catheter was then introduced into the collection a permanent image was stored. Approximately 20 cc of pale yellow slightly cloudy fluid was aspirated. The fluid sent for microbiologic analysis. The needle was removed. Sterile dressing was applied. Impression: Successful aspiration of right cheek fluid collection/abscess.
--- NOTE | 2016-07-09 12:08 | RAD ---
PROCEDURE: CHEST RADIOGRAPH, 1 VIEW HISTORY: intubation COMPARISON: Comparison chest dated 07/08/2016. Comparison also made with CTA chest 06/20/2016. FINDINGS: LUNGS: Interval placement ETT, the tip of which lies approximately 2.1 cm above dina. NGT is present, the tip of which has not been included on this film though distal aspect appears to extend below EG junction. Right IJ central line with tip in the SVC also unchanged. Hyperinflation consistent with severe emphysema. . Bilateral lower lobe atelectatic and or infiltrate changes with bilateral effusions. No other significant change. . PLEURA: As above CARDIOVASCULAR: Normal. OSSEOUS STRUCTURES: No significant abnormalities. VISUALIZED UPPER ABDOMEN: Normal. OTHER FINDINGS: None. IMPRESSION: ETT, NGT and central line as above. Hyperinflation consistent with the severe emphysema. . Bilateral lower lobe atelectatic and or infiltrate changes with bilateral effusions.
--- NOTE | 2016-07-09 12:09 | CARD ---
APPROVED REPORT EKG Measurement Heart [id number] <Conclusion> Sinus tachycardia Nonspecific T wave abnormality Abnormal ECG
[2016-07-09] MEDS: Hydrocortisone- 50 MG in Sodium Chloride 0.9% 100 ML IV SCH (12:29)
[2016-07-09] MEDS: Hydrocerin CREAM TOP SCH ×2 (12:40→16:10)
[2016-07-09] MEDS: Lactobacillus Acidophilus 500 MU Cap PO SCH ×2 (12:40→16:09)
--- NOTE | 2016-07-09 15:39 | PN ---
DATE: 07/09/2016 ROOM: 434, ICU. This is a 66-year-old female with supervening congestive heart failure and underlying exacerbation of COPD, now being followed closely for hemodynamic monitoring in the ICU and is also being followed fo r recent metabolic management of extremes of thyroid fluctuations of hypothyroidism to hyperthyroidis m at this time. She remains clinically euthyroid and has been started on low dose medical therapy wi th Tapazole medications as given. Her latest chemistry showed a BUN of 6, sodium 138, potassium 3.1, chloride 99, CO2 32, glucose 71 an d creatinine 0.3. Her latest thyroid study showed a T4 of 6.17 with a TSH of 1.89 and a free T4 of 0 .97. So at this time, we will continue the same Tapazole given as 5 mg b.i.d. as ordered. We will titrate incrementally as indicated to optimize metabolic control. We will follow and advise accordingly. Polly Vu MD cc: [id number] TT: 07/09/2016 15:38:39 Confirmation # [id number] Dictation # [id number]
[2016-07-09] MEDS ORDERED: Iodixanol 320 MG/ML 100 ML BOTTLE IV ONE (16:46)
[2016-07-09] MEDS ORDERED: Sodium Chloride 0.9% 50 ML IV ONE (16:47)
--- NOTE | 2016-07-09 17:43 | CT ---
PROCEDURE: CT Chest with contrast (Pulmonary Angiogram) HISTORY: Occult PTE COMPARISON: None available. TECHNIQUE: Axial computed tomography images were obtained of the chest in the pulmonary arterial phase of enhancement. Coronal and sagittal reformatted images were created and reviewed. Intravenous contrast dose: 75 mL Visipaque 320 Radiation dose: Total exam DLP = 399.72 mGy-cm. FINDINGS: PULMONARY ARTERIES: Unremarkable. No pulmonary embolism. AORTA: No acute findings. No thoracic aortic aneurysm. LUNGS: Severe centrilobular pulmonary emphysema. Mild bilateral lower lobe compressive atelectasis. This is secondary to bilateral pleural effusion. Patchy opacity in the anterior segment of the right lower lobe, possibly with focal infiltrate or atelectasis. No other infiltrate seen elsewhere. PLEURAL SPACES: Small to moderate bilateral pleural effusion. No pneumothorax. HEART: Normal heart size. No pericardial effusion. Endotracheal tube tip approximately 2.2 cm above tracheal dina. Nasogastric tube traverses the esophagus to the gastric lumen. Right subclavian central venous catheter. LYMPH NODES: No lymphadenopathy. BONES, CHEST WALL: Extensive thoracolumbar degenerative disc disease. Lumbar dextroscoliosis. Status post left mastectomy. Status post right hemithyroidectomy with enlargement of left thyroid lobe. Probable posttraumatic deformity right glenohumeral articulation with no recognizable humeral head, fragmentation and no vladimir articulation. OTHER FINDINGS: Sections through upper abdomen demonstrate once again a low-density mildly lobulated mass in the posterior right hepatic lobe, 3.4 cm diameter. This is unchanged from prior examination. Status post cholecystectomy. Anasarca. IMPRESSION: No evidence of pulmonary embolism. Small moderate bilateral pleural effusion. Mild bilateral lower lobe compressive atelectasis. Severe emphysema. Patchy opacity anterior right lower lobe common nonspecific. Endotracheal tube, nasogastric tube and right subclavian central venous catheter noted.
[2016-07-09] MEDS: Levalbuterol 1.25 MG/3 ML Inhal Soln UD INH SCH (19:13)
[2016-07-09] MEDS: Ipratropium 0.02% Inhal Soln (0.5 mg/2.5 ml) UD IH SCH (19:13)
[2016-07-10] MEDS: Ipratropium 0.02% Inhal Soln (0.5 mg/2.5 ml) UD IH SCH ×3 (00:17→15:55)
[2016-07-10] MEDS: Levalbuterol 1.25 MG/3 ML Inhal Soln UD INH SCH ×3 (00:18→15:55)
[2016-07-10] MEDS: Nitroglycerin 2% 1GM UD TOP SCH ×5 (02:31→22:33)
[2016-07-10 05:30] LABS: ABG ALLEN TEST YES; ABG MECHANICAL RATE 14; ARTERIAL BLOOD GAS HCO3 34.3 mmol/L (21-28); ARTERIAL BLOOD GAS MODE A/C; ARTERIAL BLOOD GAS O2 CAPACITY 13.2 mL/dL (16-24); ARTERIAL BLOOD GAS O2 CONTENT 13.1 ML/dL (15-23); ARTERIAL BLOOD GAS PH 7.45 (7.35-7.45); ARTERIAL BLOOD GAS PO2 167 mm/Hg (80-100); ATERIAL BLOOD GAS PEEP 5; CARBOXYHEMOGLOBIN 1.2 % (0.5-1.5); HHB 0.8 % (0.0-5.0); METHEMOGLOBIN 0.9 % (0.0-3.0)
[2016-07-10 07:15] LABS: HEMATOCRIT 28.9 % (34.0-47.0); MEAN CELL VOLUME 86.1 fl (81.0-99.0); MEAN CORPUSCULAR HEMOGLOBIN 26.8 pg (27.0-31.0); MEAN CORPUSCULAR HGB CONC 31.1 g/dL (33.0-37.0); RED CELL DISTRIBUTION WIDTH 30.3 % (11.5-14.5); WHITE BLOOD COUNT 5.5 K/uL (4.8-10.8)
[2016-07-10 07:27] LABS: BLOOD UREA NITROGEN 6 mg/dl (7-17); CALCIUM 8.5 mg/dL (8.4-10.2); CARBON DIOXIDE 34 mmol/L (22-30); CHLORIDE 97 mmol/L (98-107); GFR AFRICAN-AMERICAN > 60; GLUCOSE,RANDOM 105 mg/dL (65-105); POTASSIUM 3.5 MMOL/L (3.6-5.0); SODIUM 137 mmol/l (132-148)
--- NOTE | 2016-07-10 09:19 | CP.PCM.PN ---
Subjective - Date & Time of Evaluation Date of Evaluation: 07/10/16 Time of Evaluation: 08:30 - Subjective Subjective: Pt was intubated yesterday due to persistent resp distress [facility] OGT in place No fever awake, communicates by writing complains of some facial pain no diarrhea denies CP no abd pain Objective - Vital Signs/Intake and Output Vital Signs (last 24 hours): Temp Pulse Resp BP Pulse Ox 97.8 F 98 H 15 86/58 L 98 07/10/16 06:00 07/10/16 07:00 07/10/16 07:00 07/10/16 06:00 07/10/16 07:00 Intake and Output: 07/10/16 07/10/16 06:59 18:59 Intake Total 951 187 Output Total 1590 120 Balance -639 67 - Medications Medications: Current Medications Acetaminophen (Tylenol 325mg Tab) 650 mg PO Q6 PRN PRN Reason: Pain, moderate (4-7) Albuterol Sulfate (Albuterol 0.083% Inhal Aby (2.5 Mg/3 Ml) Ud) 2.5 mg INH RQ4 PRN PRN Reason: Shortness of Breath Alprazolam (Xanax) 0.25 mg PO Q12 PRN PRN Reason: Anxiety Stop: 07/10/16 10:26 Anastrozole (Arimidex 1 Mg Tab) 1 mg PO DAILY [facility] Last Admin: 07/09/16 08:35 Dose: 1 mg Baclofen (Lioresal) 10 mg PO HS [facility] Last Admin: 07/10/16 02:30 Dose: Not Given Enoxaparin Sodium (Lovenox) 40 mg SC DAILY [facility] PRN Reason: Protocol Last Admin: 07/09/16 08:28 Dose: 40 mg Gabapentin (Neurontin) 600 mg PO Q8 [facility] Last Admin: 07/10/16 02:43 Dose: 600 mg Fluconazole (Diflucan Iv 200 Mg/100 Ml Ns) 100 mls @ 100 mls/hr IVPB DAILY [facility] Last Admin: 07/09/16 10:53 Dose: 100 mls/hr Hydrocortisone Sodium Succinate 50 mg/ Sodium Chloride 100 mls @ 100 mls/hr IV DAILY [facility] Last Admin: 07/09/16 12:29 Dose: 100 mls/hr Linezolid (Zyvox 600mg/300ml D5w) 300 mls @ 300 mls/hr IVPB Q12 [facility] Last Admin: 07/09/16 20:28 Dose: 300 mls/hr Meropenem 1 gm/ Sodium (Chloride) 100 mls @ 100 mls/hr IVPB Q12@0800,2000 [facility] Last Admin: 07/09/16 20:27 Dose: 100 mls/hr Propofol (Diprivan) 100 mls @ 1.739 mls/hr IV .Q24H [facility]; 5 MCG/KG/MIN PRN Reason: Protocol Stop: 07/10/16 14:31 Last Titration: 07/09/16 15:58 Dose: 10 mcg/kg/min Potassium Chloride (Potassium Cl 10meq/50ml Sterile Water) 50 mls @ 50 mls/hr IVPB Q1 [facility] Stop: 07/10/16 10:59 Ipratropium [place] (Atrovent) 0.5 mg IH RQ8 [facility] Last Admin: 07/10/16 08:38 Dose: 0.5 mg Lactobacillus Acidophilus (Bacid Acidophilus) 1 cap PO BID [facility] Last Admin: 07/09/16 16:09 Dose: 1 cap Levalbuterol HCl (Xopenex) 1.25 mg INH RQ8 [facility] Last Admin: 07/10/16 08:38 Dose: 1.25 mg Loperamide HCl (Imodium) 2 mg PO QID PRN PRN Reason: Loose stools Last Admin: 07/08/16 08:57 Dose: 2 mg Methimazole (Tapazole) 5 mg PO BID [facility] Last Admin: 07/09/16 16:07 Dose: 5 mg Morphine Sulfate (Morphine) 2 mg IVP Q4 PRN PRN Reason: Pain, moderate (4-7) Last Admin: 07/10/16 08:06 Dose: 2 mg Multi-Ingredient Cream (Hydrocerin Cream) 1 applic TOP BID [facility] Last Admin: 07/09/16 16:10 Dose: 1 applic Multivitamins/Minerals (Therapeutic-M Tab) 1 tab PO DAILY [facility] Last Admin: 07/09/16 08:27 Dose: 1 tab Nitroglycerin (Nitro-Bid 2% Oint) 1 in TOP Q6 [facility] Last Admin: 07/10/16 04:17 Dose: Not Given Pantoprazole Sodium (Protonix Ec Tab) 40 mg PO DAILY [facility] Last Admin: 07/09/16 08:27 Dose: 40 mg Roflumilast (Daliresp) 500 mcg PO DAILY [facility] Last Admin: 07/09/16 08:27 Dose: 500 mcg Spironolactone (Aldactone) 25 mg PO DAILY [facility] Last Admin: 07/09/16 08:31 Dose: 25 mg Zolpidem Tartrate (Ambien) 5 mg PO HS PRN PRN Reason: Sleep Last Admin: 07/08/16 22:43 Dose: 5 mg - Labs Labs: 07/10/16 05:30 07/10/16 05:30 - Constitutional Appears: Chronically Ill Intubated on Vent - Head Exam Head Exam: NORMAL INSPECTION, NORMOCEPHALIC - Eye Exam Eye Exam: EOMI, Normal appearance Pupil Exam: NORMAL ACCOMMODATION - ENT Exam ENT Exam: Mucous Membranes Dry, Normal External Ear Exam Additional comments: right facial abscess with Ginger drain in place, + tenderness to touch - Neck Exam Neck Exam: Full ROM. absent: Meningismus - Respiratory Exam Intubated on [facility] vent - Cardiovascular Exam Cardiovascular Exam: REGULAR RHYTHM, +S1, +S2. tachycardic - GI/Abdominal Exam GI & Abdominal Exam: Soft, Normal Bowel Sounds. absent: Tenderness - Extremities Exam Extremities Exam: Normal Capillary Refill Additional comments: right shoulder deformity RUE edema mild pedal edema - Back Exam Back Exam: absent: CVA tenderness (L), CVA tenderness (R) - Neurological Exam Neurological Exam: Alert, Awake, CN II-XII Intact - Psychiatric Exam Psychiatric exam: Normal Affect, Normal Mood - Skin Skin Exam: Dry, Normal Color, Warm Assessment and Plan (1) Acute and chronic respiratory failure with hypercapnia Status: Acute (2) Osteomyelitis of mandible Status: Acute (3) Hypothyroidism Status: Acute (4) Acute exacerbation of chronic obstructive pulmonary disease (COPD) Status: Acute (5) HTN (hypertension) Status: Chronic (6) Hx of breast cancer Status: Chronic (7) Acute exacerbation of CHF (congestive heart failure) Status: Acute (8) Hypokalemia Status: Acute (9) Facial abscess Status: Acute (10) DVT prophylaxis Status: Acute - Assessment and Plan (Free Text) Assessment: 66 y/o female PMH COPD, bilateral breast CA s/p chemo and radiation 8 years ago , HTN, Hyperthyroidism presented with 2 week history of worsening bilateral lower extremity swelling and weakness, unable to get herself up to her walker. Patient has mild dyspnea at baseline. She also came with a large right facial swelling for almost 2 weeks and was taking PO antibiotics prescribed by her dentist. Patient was admitted for generalized weakness , Hyponatremia and Facial abscess. She was started on IV antibiotics for facial abscess and Lasix IV with fluid restriction for LE edema. Maxillofacial Ct showed possible abscess accumulation. Evaluated by Oromaxillofacial surgeon and underwent Incision and drainage of abscess. Bone scan showed possible osteomyelitis . ID recommends 4-6 wks IV abx treatment. During this hospitalization noted to have increased dyspnea at rest and more so with minimal activity, decreased air entry bilaterally and increased work of breathing. She was started on high flow O2, Higher doses of theophylline and IV hydrocortisone. CTA chest and LE doppler showed no DVT , except right cephallic cherelle thrombosis . She was transferred to ICU for close monitoring for tachypnea and tachycardia. She underwent IR drainage on 06/24 of right facial abscess due to re accumulation and cultures came positive for VRE and bria. Antibiotics were changed to Zyvox , Meropenem and Fluconazone. Despite drainage and IV antibiotics she still kept complaining of pain to right supramandibular area with increased swelling. Repeat CT showed abscess formation. Patient underwent I&D in OR 07/06/16 with ginger drainage placement. She continues to have episodes of resp distress - tachypneic , tachycardic , with chest congestion , unable to expectorate despite high flow O2 therapy, Duonebs and Corticosteroids. Theophylline discontinued and Daliresp started. 07/07/16 underwent Bronchoscopy while still intubated post maxillofacial abscess I&D with BAL , c/s: S Maltophilia Severe Resp distress on 07/09 and was Intubated . 1. Acute on Chronic Respiratory Failure with hypercapnea Intubated on 07/09 on Mech Vent rpt CTA Pulm 07/09 : no PE, RLL opacity, Emphysematous changes s/p bronchoscopy 07/07/16 with BAL of florez colored thick secretions for LLL, RLL and RML tapered Hydrocortisone to 50 mg IV daily 2. Chest Pain , prob sec to Anxiety, ACS ruled out with recurrent pressure like chest pain on and off cardiology consult : Dr. Luu Trop -- negative and EKG showed no ST-T wave changes Most likely atypical chest pain related to anxiety , hypokalemia and COPD. There is no signs of ischemia 3. Facial abscess with mandibular Osteomyelitis s/p drainage of abscess with penreose drain placement s/p Incision and drainage on 06/[address] Anderson maxillofacial surgeon and rpt I&D 07/06 now with Ginger drain placed pathology report showed inflammatory cells, no malignancy Nuclear Bone Scan suggestive of osteomyelitis initial cultures were with no growth so was started on Zosyn ,and Clindamycin IV ID consult with Dr Obrien appreciated .. Recommended IV abx 6 wks total ( # Day ) Tunneled central line placed for technician terminal and repeater IV antibiotics- this will need to be d/c by IR after IV abx treatment is completed ( as discussed with Dr Gunter - pt was informed of need to see IR after abx tx) Due to increased swelling and pain patient underwent drainage of facial collection by IR on 06/24 and 24 ml yellow fluid obtained. Cultures reported as VRE and Bria Antibiotics changed to Zyvox , Meropenem and Fluconazole ENT eval with Dr. Priest appreciated. He recommended reevaluation by maxillofacial surgeon due recurrence of swelling despite of I&, drainage and antibiotics 4. Bilateral LE edema sec to CHF exacerbation with diastolic dysfxn Echo showed EF 40-45 % and dilated RV continue fluid restriction Promote ambulation 5. Hypokalemia multifactorial diuretic induced , Albuterol, Hypothyroidism and GI loss ( had 5 BM ) off Lasix Continue KCl runs and PO replacement as needed Nephro consult appreciated CT of abd showed no adrenal mass 6 .Hyponatremia, resolved most likely secondary to solute depletion and infection Continue fluid restriction 7.Hx breast ca, bilateral stable, s/p bilateral mastectomy continue Arimidex 8. Tachycardia -- multifactorial Hx of HTN was on verapamil at home ( 80mg tid) but decreased dose due to low BP and now discontinued as may contribute to leg edema continue monitoring Albuterol changed to Xopenex 9. Hypothyroidism/ Hyperthyroidism patient has history of hyperthyroidism , was on Methimazole and noticed to had developed hypothyroidism so Methimazole was d/c and she was started on Po levothyroxine this admission , TSH then went down and Metrhimazole restarted Methimazole 5 mg po bid restarted as discussed with Dr Vu 10. Anemia, chronic dis monitor anemia work up showed depleted iron stores Venofer IV given s/p 2 units PRBC transfusion 11. Right cephalic vein thrombosis ( superficial vein) 12.DVT ppx on lovenox
[2016-07-10] MEDS: Enoxaparin 40 mg Syringe SC SCH (09:22)
[2016-07-10] MEDS: Pantoprazole 40 mg EC Tab PO SCH (09:22)
[2016-07-10] MEDS: Multivitamin With Minerals Tab PO SCH (09:23)
[2016-07-10] MEDS: methIMAzole 5 MG TAB PO SCH ×2 (09:23→16:53)
[2016-07-10] MEDS: Meropenem 1 GM in Sodium Chloride 0.9% 100 ML IVPB SCH (09:24)
[2016-07-10] MEDS: Linezolid 600 mg in D5W 300 ml 300 ML IVPB SCH ×2 (09:24→20:30)
[2016-07-10] MEDS: Hydrocortisone- 50 MG in Sodium Chloride 0.9% 100 ML IV SCH (09:25)
[2016-07-10] MEDS: Fluconazole IV 200mg/100 ml NS 100 ML IVPB SCH (09:26)
--- NOTE | 2016-07-10 09:27 | RAD ---
HISTORY: follow up tube placement COMPARISON: 07/09/2016 FINDINGS: LUNGS: Bilateral pulmonary interstitial prominence. PLEURA: No significant pleural effusion identified,. Roughly 15 percent pneumothorax on the right. CARDIOVASCULAR: Normal. OSSEOUS STRUCTURES: No significant abnormalities. VISUALIZED UPPER ABDOMEN: Normal. OTHER FINDINGS: Right PICC line and right chest tube in place. ETT in place. IMPRESSION: Suspect persistent roughly 15 percent right pneumothorax.
[2016-07-10] MEDS: Lactobacillus Acidophilus 500 MU Cap PO SCH ×2 (09:28→16:51)
[2016-07-10] MEDS: Potassium CL 10 MEQ/50 ML 50 ML IVPB SCH ×2 (09:29→10:40)
[2016-07-10] MEDS: Hydrocerin CREAM TOP SCH ×2 (09:44→18:57)
--- NOTE | 2016-07-10 09:54 | CP.PCM.PN ---
Subjective - Date & Time of Evaluation Date of Evaluation: 07/10/16 Time of Evaluation: 09:50 - Subjective Subjective: Pt had to be intubated due to respiratory distress. She is now deeply sedated.The drainage from the I&D of the right mandibular mass was benign and showed pseudo actinomysis. Pt's CBC is stable. Objective - Vital Signs/Intake and Output Vital Signs (last 24 hours): Temp Pulse Resp BP Pulse Ox 97.8 F 98 H 15 86/58 L 98 07/10/16 06:00 07/10/16 07:00 07/10/16 07:00 07/10/16 06:00 07/10/16 07:00 Intake and Output: 07/10/16 07/10/16 06:59 18:59 Intake Total 951 187 Output Total 1590 120 Balance -639 67 - Medications Medications: Current Medications Acetaminophen (Tylenol 325mg Tab) 650 mg PO Q6 PRN PRN Reason: Pain, moderate (4-7) Albuterol Sulfate (Albuterol 0.083% Inhal Aby (2.5 Mg/3 Ml) Ud) 2.5 mg INH RQ4 PRN PRN Reason: Shortness of Breath Alprazolam (Xanax) 0.25 mg PO Q12 PRN PRN Reason: Anxiety Stop: 07/10/16 10:26 Anastrozole (Arimidex 1 Mg Tab) 1 mg PO DAILY [facility] Last Admin: 07/10/16 09:20 Dose: 1 mg Baclofen (Lioresal) 10 mg PO HS [facility] Last Admin: 07/10/16 02:30 Dose: Not Given Enoxaparin Sodium (Lovenox) 40 mg SC DAILY [facility] PRN Reason: Protocol Last Admin: 07/10/16 09:22 Dose: 40 mg Gabapentin (Neurontin) 600 mg PO Q8 [facility] Last Admin: 07/10/16 09:22 Dose: 600 mg Fluconazole (Diflucan Iv 200 Mg/100 Ml Ns) 100 mls @ 100 mls/hr IVPB DAILY [facility] Last Admin: 07/10/16 09:26 Dose: 100 mls/hr Hydrocortisone Sodium Succinate 50 mg/ Sodium Chloride 100 mls @ 100 mls/hr IV DAILY [facility] Last Admin: 07/10/16 09:25 Dose: 100 mls/hr Linezolid (Zyvox 600mg/300ml D5w) 300 mls @ 300 mls/hr IVPB Q12 [facility] Last Admin: 07/10/16 09:24 Dose: 300 mls/hr Meropenem 1 gm/ Sodium (Chloride) 100 mls @ 100 mls/hr IVPB Q12@0800,2000 [facility] Last Admin: 07/10/16 09:24 Dose: 100 mls/hr Propofol (Diprivan) 100 mls @ 1.739 mls/hr IV .Q24H [facility]; 5 MCG/KG/MIN PRN Reason: Protocol Stop: 07/10/16 14:31 Last Titration: 07/09/16 15:58 Dose: 10 mcg/kg/min Potassium Chloride (Potassium Cl 10meq/50ml Sterile Water) 50 mls @ 50 mls/hr IVPB Q1 [facility] Stop: 07/10/16 10:59 Last Admin: 07/10/16 09:29 Dose: 50 mls/hr Ipratropium [place] (Atrovent) 0.5 mg IH RQ8 [facility] Last Admin: 07/10/16 08:38 Dose: 0.5 mg Lactobacillus Acidophilus (Bacid Acidophilus) 1 cap PO BID [facility] Last Admin: 07/10/16 09:28 Dose: 1 cap Levalbuterol HCl (Xopenex) 1.25 mg INH RQ8 [facility] Last Admin: 07/10/16 08:38 Dose: 1.25 mg Loperamide HCl (Imodium) 2 mg PO QID PRN PRN Reason: Loose stools Last Admin: 07/08/16 08:57 Dose: 2 mg Methimazole (Tapazole) 5 mg PO BID [facility] Last Admin: 07/10/16 09:23 Dose: 5 mg Morphine Sulfate (Morphine) 2 mg IVP Q4 PRN PRN Reason: Pain, moderate (4-7) Last Admin: 07/10/16 08:06 Dose: 2 mg Multi-Ingredient Cream (Hydrocerin Cream) 1 applic TOP BID [facility] Last Admin: 07/10/16 09:44 Dose: 1 applic Multivitamins/Minerals (Therapeutic-M Tab) 1 tab PO DAILY [facility] Last Admin: 07/10/16 09:23 Dose: 1 tab Nitroglycerin (Nitro-Bid 2% Oint) 1 in TOP Q6 [facility] Last Admin: 07/10/16 09:22 Dose: 1 in Pantoprazole Sodium (Protonix Ec Tab) 40 mg PO DAILY [facility] Last Admin: 07/10/16 09:22 Dose: 40 mg Roflumilast (Daliresp) 500 mcg PO DAILY [facility] Last Admin: 07/09/16 08:27 Dose: 500 mcg Spironolactone (Aldactone) 25 mg PO DAILY [facility] Last Admin: 07/10/16 09:19 Dose: 25 mg Zolpidem Tartrate (Ambien) 5 mg PO HS PRN PRN Reason: Sleep Last Admin: 07/08/16 22:43 Dose: 5 mg - Labs Labs: 07/10/16 05:30 07/10/16 05:30 PT 11.2 SECONDS (9.6-11.2) 07/09/16 08:00 INR 1.08 (0.92-1.08) 07/09/16 08:00 APTT 27.7 SECONDS (23.3-32.5) 07/09/16 08:00
--- NOTE | 2016-07-10 12:01 | RAD ---
PROCEDURE: HISTORY: ? pneumothorax COMPARISON: Previous chest x-ray dated to 07/09/[address] scan TECHNIQUE: FINDINGS: Again noted is increased hyperlucency in the right apex when compared to the left, however, when correlated with the chest CT scan from 07/09/2016 there appears to be severe bullous emphysema worse on the right. There is likely no pneumothorax. IMPRESSION: As above.
--- NOTE | 2016-07-10 13:06 | CP.PCM.PN ---
Subjective - Date & Time of Evaluation Date of Evaluation: 07/10/16 Time of Evaluation: 13:06 - Subjective Subjective: Seen on rounds in the ICU. Remains orally intubated and mechanically ventilated. Awake and cooperative. CXR reviewed (?pneumothorax?, doubtful), repeat has been requested. Patient's daughter is at the bedside. Vital signs remain stable. Small volume of florez secretions from the ETT. S maltophilia reported in sputum culture. Spoke to ID who will make antibiotic changes. No dullness on chest percussion anteriorly. No subcutaneous emphysema palpated. Neck is supple and trachea midline. Breath sounds are present bilaterally, diminished. Expiratory phase prolonged with scattered wheezes. Few dependant rhonchi. No bronchial breath sounds heard. Heart sounds distant, rhythm regular and tachy. Abdomen is soft and non-tender, +BS. Dependant edema ++ w/o cyanosis. Will hopefully begin weaning over the remainder of the weekend. Continue multiple antibiotics as per ID. Continue aerosol therapy and bronchodilators as able. Maintain electrolyte balance. Had discussion with daughter regarding prognosis. Objective - Vital Signs/Intake and Output Vital Signs (last 24 hours): Temp Pulse Resp BP Pulse Ox 98.1 F 111 H 18 91/58 L 100 07/10/16 12:10 07/10/16 12:10 07/10/16 12:10 07/10/16 12:10 07/10/16 12:10 Intake and Output: 07/10/16 07/10/16 11:59 23:59 Intake Total 555 Output Total 610 Balance -55 - Medications Medications: Current Medications Acetaminophen (Tylenol 650mg/20.3ml Solution Ud) 650 mg PO Q8 [facility] Albuterol Sulfate (Albuterol 0.083% Inhal Aby (2.5 Mg/3 Ml) Ud) 2.5 mg INH RQ4 PRN PRN Reason: Shortness of Breath Anastrozole (Arimidex 1 Mg Tab) 1 mg PO DAILY [facility] Last Admin: 07/10/16 09:20 Dose: 1 mg Baclofen (Lioresal) 10 mg PO HS [facility] Last Admin: 07/10/16 02:30 Dose: Not Given Enoxaparin Sodium (Lovenox) 40 mg SC DAILY [facility] PRN Reason: Protocol Last Admin: 07/10/16 09:22 Dose: 40 mg Gabapentin (Neurontin) 600 mg PO Q8 [facility] Last Admin: 07/10/16 09:22 Dose: 600 mg Fluconazole (Diflucan Iv 200 Mg/100 Ml Ns) 100 mls @ 100 mls/hr IVPB DAILY [facility] Last Admin: 07/10/16 09:26 Dose: 100 mls/hr Hydrocortisone Sodium Succinate 50 mg/ Sodium Chloride 100 mls @ 100 mls/hr IV DAILY [facility] Last Admin: 07/10/16 09:25 Dose: 100 mls/hr Linezolid (Zyvox 600mg/300ml D5w) 300 mls @ 300 mls/hr IVPB Q12 [facility] Last Admin: 07/10/16 09:24 Dose: 300 mls/hr Meropenem 1 gm/ Sodium (Chloride) 100 mls @ 100 mls/hr IVPB Q12@0800,2000 [facility] Last Admin: 07/10/16 09:24 Dose: 100 mls/hr Propofol (Diprivan) 100 mls @ 1.739 mls/hr IV .Q24H [facility]; 5 MCG/KG/MIN PRN Reason: Protocol Stop: 07/10/16 14:31 Last Titration: 07/09/16 15:58 Dose: 10 mcg/kg/min Ipratropium [place] (Atrovent) 0.5 mg IH RQ8 [facility] Last Admin: 07/10/16 08:38 Dose: 0.5 mg Lactobacillus Acidophilus (Bacid Acidophilus) 1 cap PO BID [facility] Last Admin: 07/10/16 09:28 Dose: 1 cap Levalbuterol HCl (Xopenex) 1.25 mg INH RQ8 [facility] Last Admin: 07/10/16 08:38 Dose: 1.25 mg Loperamide HCl (Imodium) 2 mg PO QID PRN PRN Reason: Loose stools Last Admin: 07/08/16 08:57 Dose: 2 mg Methimazole (Tapazole) 5 mg PO BID [facility] Last Admin: 07/10/16 09:23 Dose: 5 mg Morphine Sulfate (Morphine) 2 mg IVP Q4 PRN PRN Reason: Pain, moderate (4-7) Last Admin: 07/10/16 08:06 Dose: 2 mg Multi-Ingredient Cream (Hydrocerin Cream) 1 applic TOP BID [facility] Last Admin: 07/10/16 09:44 Dose: 1 applic Multivitamins/Minerals (Therapeutic-M Tab) 1 tab PO DAILY [facility] Last Admin: 07/10/16 09:23 Dose: 1 tab Nitroglycerin (Nitro-Bid 2% Oint) 1 in TOP Q6 [facility] Last Admin: 07/10/16 09:22 Dose: 1 in Pantoprazole Sodium (Protonix Ec Tab) 40 mg PO DAILY [facility] Last Admin: 07/10/16 09:22 Dose: 40 mg Roflumilast (Daliresp) 500 mcg PO DAILY [facility] Last Admin: 07/09/16 08:27 Dose: 500 mcg Spironolactone (Aldactone) 25 mg PO DAILY [facility] Last Admin: 07/10/16 09:19 Dose: 25 mg Zolpidem Tartrate (Ambien) 5 mg PO HS PRN PRN Reason: Sleep Last Admin: 07/08/16 22:43 Dose: 5 mg - Labs Labs: 07/10/16 05:30 07/10/16 05:30 PT 11.2 SECONDS (9.6-11.2) 07/09/16 08:00 INR 1.08 (0.92-1.08) 07/09/16 08:00 APTT 27.7 SECONDS (23.3-32.5) 07/09/16 08:00 Assessment and Plan (1) Acute bronchitis with chronic obstructive pulmonary disease (COPD) Status: Acute (2) Hyperthyroidism Status: Chronic (3) Abscess Status: Acute (4) Hypokalemia Status: Acute
[2016-07-10] MEDS: Acetaminophen 650mg/20.3ml solution UD PO SCH ×2 (13:09→18:57)
--- NOTE | 2016-07-10 14:05 | PN ---
DATE: 07/10/2016 LOCATION: The patient in ICU, bed 434. TIME SPENT: 35 minutes. The patient is seen and evaluated at the bedside. Events since admission reviewed. PAST MEDICAL, SURGICAL, SOCIAL, FAMILY HISTORY: Reviewed and are unchanged. Overnight intubated secondary to respiratory distress, sedated on Diprivan drip. This morning, alert , wakeful upon calling her name. No distress noted. PHYSICAL EXAMINATION: VITAL SIGNS: Temperature 98.1, heart rate 103-111 regular, blood pressure 91-94/58-59, oxygen satura tion 100%, FiO2 58%, PEEP of 5, observed rate 19. Exhaled tidal volume 430, minute ventilation 5.4 l iters, peak airway pressure in the 20s. HEENT: Pupils reactive. Conjunctivae pink. Sclerae white. NECK: Supple. Endotracheal tube in place. No secretion noted. CHEST: Bilateral breath sounds diminished in intensity. Clear to auscultation anteriorly and latera lly. HEART: Rhythm regular. S1, S2, rapid. No audible murmur or rub. ABDOMEN: Bowel sounds present, soft. EXTREMITIES: Lymphedema on the right upper extremity. No clubbing, no cyanosis, 1+ edema. NEUROLOGIC: Sedated on Diprivan drip. CURRENT MEDICATIONS: Include Aldactone 25 mg daily, Daliresp 500 mg p.o. daily, Protonix 40 daily, D itropan 2% ointment 1 inch topically q. 6 hours, multivitamin tablet daily, ____ cream 1 applicatio n topically twice daily, morphine 2 mg IV q. 4 p.r.n., Tapazole 5 mg p.o. b.i.d., meropenem 1 gram IV daily, Zyvox 600 mg q. 12 hours. Xopenex 1.25 mg inhalation q. 8, lactobacillus 1 capsule twice d aily, ipratropium bromide 0.5 mg inhalation every 8 hours, hydrocortisone succinate 50 mg daily, fluc onazole 200 mg IV daily, Lovenox 40 subQ daily, ____ 10 at bedtime, Arimidex 1 mg daily. LABORATORY DATA: WBC 5.5, hemoglobin 9.9, hematocrit 28.9, platelet count 112. PT 11.2, INR 1.08, P TT 27.7. ABG: pH 7.45, pCO2 54, pO2 167, saturation 99.2 on AC ____ 50%, PEEP 5. SMA-7: Sodium 13 7, potassium 3.5, chloride 97, CO2 of 34, blood urea nitrogen 6, creatinine 0.3, calcium 8.5, total b ilirubin 0.1, AST 19, ALT 32, alkaline phosphatase 83, total protein 4.7, albumin 2.3, globulin 2.4, TSH 1.89. Free T4 0.97. Bronchial washing Stenotrophomonas maltophilia. Wound culture positive for vancomycin-resistant Enterococcus faecalis, Amanda albicans. Chest x-ray: Endotracheal tube in leonarda ce, emphysema on the right apex, no pneumothorax as per discussion with equipment service lead. IMPRESSION: Hypercapneic, hypoxic respiratory failure, secondary to acute bronchitis with exacerbat ion of chronic obstructive pulmonary disease on AC PRVC 16, tidal volume 400, FiO2 50%, PEEP 5. Cont inue bronchodilator, Solu-Medrol. Appreciate pulmonary followup. Sepsis associated pneumonia, bronc hial alveolar positive for Stenotrophomonas maltophilia. Wound culture positive for Enterococcus skinny calis. Continue current antibiotic as per recommendation from ID consult. Hyperthyroidism on methim azole, appreciate endocrine followup. Osteomyelitis of right mandible, status post incision and drai nage. Continue with antibiotic on fluconazole, Zyvox and meropenem. DVT and GI prophylaxis. Keep h ead of bed 45 degrees up, DVT and gastrointestinal prophylaxis. Keep blood sugar less than 180 mg. Kuldip Jenkins MD cc: [id number] TT: 07/10/2016 14:04:46 Confirmation # [id number] Dictation # [id number]
--- NOTE | 2016-07-10 14:27 | CP.PCM.PN ---
Subjective - Date & Time of Evaluation Date of Evaluation: 07/10/16 Time of Evaluation: 14:35 - Subjective Subjective: I D NOTE BRONCHIAL WASHINGS GREW STENOTROPHOMONAS MALTOPHILIA AND NO SENSITIVITIES ARE SHOEN USUAL RX IS BACTRIM AT 15MG/KG OF TMP COMPONENT/24H AND WILL GIVE 435MG IVPB Q12H THERE IS SOME STUDIES SHOWING A COMBINATION C QUINOLONES (LEVOFLOXIN) WILL SUPPLY INCREASED COVERAGE AND HAVE ORDERED. WE HAVE HAD NO SIGNIFICANT IMPROVEMENT IN ABSCESS HOPEFULLY THIS WILL GIVE COVERAGE FOR BOTH CLINICAL ISSUES Objective - Vital Signs/Intake and Output Vital Signs (last 24 hours): Temp Pulse Resp BP Pulse Ox 98.1 F 104 H 18 91/55 L 100 07/10/16 12:10 07/10/16 14:00 07/10/16 13:00 07/10/16 14:00 07/10/16 14:00 Intake and Output: 07/10/16 07/10/16 06:59 18:59 Intake Total 951 187 Output Total 1590 120 Balance -639 67 - Medications Medications: Current Medications Acetaminophen (Tylenol 650mg/20.3ml Solution Ud) 650 mg PO Q8 [facility] Last Admin: 07/10/16 13:09 Dose: 650 mg Albuterol Sulfate (Albuterol 0.083% Inhal Aby (2.5 Mg/3 Ml) Ud) 2.5 mg INH RQ4 PRN PRN Reason: Shortness of Breath Anastrozole (Arimidex 1 Mg Tab) 1 mg PO DAILY [facility] Last Admin: 07/10/16 09:20 Dose: 1 mg Baclofen (Lioresal) 10 mg PO HS [facility] Last Admin: 07/10/16 02:30 Dose: Not Given Enoxaparin Sodium (Lovenox) 40 mg SC DAILY [facility] PRN Reason: Protocol Last Admin: 07/10/16 09:22 Dose: 40 mg Gabapentin (Neurontin) 600 mg PO Q8 [facility] Last Admin: 07/10/16 09:22 Dose: 600 mg Fluconazole (Diflucan Iv 200 Mg/100 Ml Ns) 100 mls @ 100 mls/hr IVPB DAILY [facility] Last Admin: 07/10/16 09:26 Dose: 100 mls/hr Hydrocortisone Sodium Succinate 50 mg/ Sodium Chloride 100 mls @ 100 mls/hr IV DAILY [facility] Last Admin: 07/10/16 09:25 Dose: 100 mls/hr Linezolid (Zyvox 600mg/300ml D5w) 300 mls @ 300 mls/hr IVPB Q12 [facility] Last Admin: 07/10/16 09:24 Dose: 300 mls/hr Propofol (Diprivan) 100 mls @ 1.739 mls/hr IV .Q24H [facility]; 5 MCG/KG/MIN PRN Reason: Protocol Stop: 07/10/16 14:31 Last Titration: 07/09/16 15:58 Dose: 10 mcg/kg/min Trimethoprim/Sulfamethoxazole (435 mg/ Dextrose) 250 mls @ 166.667 mls/hr IVPB Q12H [facility] Levofloxacin/Dextrose (Levaquin 500mg) 100 mls @ 100 mls/hr IVPB DAILY [facility] Ipratropium [place] (Atrovent) 0.5 mg IH RQ8 [facility] Last Admin: 07/10/16 08:38 Dose: 0.5 mg Lactobacillus Acidophilus (Bacid Acidophilus) 1 cap PO BID [facility] Last Admin: 07/10/16 09:28 Dose: 1 cap Levalbuterol HCl (Xopenex) 1.25 mg INH RQ8 [facility] Last Admin: 07/10/16 08:38 Dose: 1.25 mg Loperamide HCl (Imodium) 2 mg PO QID PRN PRN Reason: Loose stools Last Admin: 07/08/16 08:57 Dose: 2 mg Methimazole (Tapazole) 5 mg PO BID [facility] Last Admin: 07/10/16 09:23 Dose: 5 mg Morphine Sulfate (Morphine) 2 mg IVP Q4 PRN PRN Reason: Pain, moderate (4-7) Last Admin: 07/10/16 08:06 Dose: 2 mg Multi-Ingredient Cream (Hydrocerin Cream) 1 applic TOP BID [facility] Last Admin: 07/10/16 09:44 Dose: 1 applic Multivitamins/Minerals (Therapeutic-M Tab) 1 tab PO DAILY [facility] Last Admin: 07/10/16 09:23 Dose: 1 tab Nitroglycerin (Nitro-Bid 2% Oint) 1 in TOP Q6 [facility] Last Admin: 07/10/16 09:22 Dose: 1 in Pantoprazole Sodium (Protonix Ec Tab) 40 mg PO DAILY [facility] Last Admin: 07/10/16 09:22 Dose: 40 mg Roflumilast (Daliresp) 500 mcg PO DAILY [facility] Last Admin: 07/09/16 08:27 Dose: 500 mcg Spironolactone (Aldactone) 25 mg PO DAILY [facility] Last Admin: 07/10/16 09:19 Dose: 25 mg Zolpidem Tartrate (Ambien) 5 mg PO HS PRN PRN Reason: Sleep Last Admin: 07/08/16 22:43 Dose: 5 mg - Labs Labs: 07/10/16 05:30 07/10/16 05:30 PT 11.2 SECONDS (9.6-11.2) 07/09/16 08:00 INR 1.08 (0.92-1.08) 07/09/16 08:00 APTT 27.7 SECONDS (23.3-32.5) 07/09/16 08:00
[2016-07-10] MEDS: DEXTROSE 5% IVPB SCH (16:51)
[2016-07-10] MEDS: TRIMETHOPRIM IVPB SCH (16:51)
[2016-07-10] MEDS: WATER IVPB SCH (16:51)
[2016-07-10] MEDS: SULFAMETHOXAZOLE IVPB SCH (16:51)
--- NOTE | 2016-07-10 17:22 | PN ---
DATE: 07/10/2016 ROOM: 434 ICU. SUBJECTIVE: This is a 66-year-old female with recent congestive heart failure and exacerbation of CO PD, currently being followed for hemodynamic monitoring in the ICU. She also had a recent hyperthyro idism and restarted back on Tapazole at a low dose therapy as noted. Her latest thyroid study showed a T4 of 6.17 with a TSH of 1.89 and free T4 of 0.97. Her latest chemistries showed a BUN of 6, sodi um 138, potassium 3.1, chloride 99, CO2 of 71 and creatinine 0.3. So, at this time, we will continue the Tapazole given at the low dose of 5 mg b.i.d. as ordered. Celestino l titrate incrementally as indicated to optimize metabolic control. We will follow and advise ihsan machado. Polly Vu MD cc: [id number] TT: 07/10/2016 17:22:20 Confirmation # [id number] Dictation # [id number]
[2016-07-11] MEDS: Ipratropium 0.02% Inhal Soln (0.5 mg/2.5 ml) UD IH SCH ×4 (00:10→23:13)
[2016-07-11] MEDS: Levalbuterol 1.25 MG/3 ML Inhal Soln UD INH SCH ×4 (00:10→23:13)
[2016-07-11] MEDS: Acetaminophen 650mg/20.3ml solution UD PO SCH ×3 (02:00→16:23)
[2016-07-11] MEDS: DEXTROSE 5% IVPB SCH ×2 (02:57→16:41)
[2016-07-11] MEDS: WATER IVPB SCH ×2 (02:57→16:41)
[2016-07-11] MEDS: TRIMETHOPRIM IVPB SCH ×2 (02:57→16:41)
[2016-07-11] MEDS: SULFAMETHOXAZOLE IVPB SCH ×2 (02:57→16:41)
[2016-07-11] MEDS: Nitroglycerin 2% 1GM UD TOP SCH ×4 (05:46→21:56)
[2016-07-11 07:01] LABS: ABG ALLEN TEST YES; ABG MECHANICAL RATE 12; ARTERIAL BLOOD GAS HCO3 32.6 mmol/L (21-28); ARTERIAL BLOOD GAS MODE A/C; ARTERIAL BLOOD GAS O2 CAPACITY 12.8 mL/dL (16-24); ARTERIAL BLOOD GAS O2 CONTENT 12.7 ML/dL (15-23); ARTERIAL BLOOD GAS PH 7.39 (7.35-7.45); ARTERIAL BLOOD GAS PO2 116 mm/Hg (80-100); ARTERIAL BLOOD HGB O2 SAT 96.8 % (95.0-98.0); ATERIAL BLOOD GAS PEEP 5; CARBOXYHEMOGLOBIN 1.5 % (0.5-1.5); HHB 0.9 % (0.0-5.0); METHEMOGLOBIN 0.8 % (0.0-3.0)
[2016-07-11 07:06] LABS: HEMATOCRIT 27.9 % (34.0-47.0); MEAN CELL VOLUME 84.9 fl (81.0-99.0); MEAN CORPUSCULAR HEMOGLOBIN 27.7 pg (27.0-31.0); MEAN CORPUSCULAR HGB CONC 32.6 g/dL (33.0-37.0); RED CELL DISTRIBUTION WIDTH 30.7 % (11.5-14.5); WHITE BLOOD COUNT 6.7 K/uL (4.8-10.8)
[2016-07-11 07:18] LABS: ALKALINE PHOSPHATASE 93 U/L (38-126); ALT/SGPT 37 U/L (9-52); AST/SGOT 26 U/L (14-36); BILIRUBIN,TOTAL < 0.1 mg/dl (0.2-1.3); BLOOD UREA NITROGEN 7 mg/dl (7-17); CALCIUM 8.2 mg/dL (8.4-10.2); CARBON DIOXIDE 35 mmol/L (22-30); CHLORIDE 94 mmol/L (98-107); GFR AFRICAN-AMERICAN > 60; GLUCOSE,RANDOM 81 mg/dL (65-105); POTASSIUM 3.8 MMOL/L (3.6-5.0); SODIUM 138 mmol/l (132-148); TOTAL PROTEIN 4.6 G/DL (6.3-8.2)
[2016-07-11] MEDS: Pantoprazole 40 mg EC Tab PO SCH (08:30)
[2016-07-11] MEDS: Enoxaparin 40 mg Syringe SC SCH (08:30)
[2016-07-11] MEDS: Multivitamin With Minerals Tab PO SCH (08:31)
[2016-07-11] MEDS: methIMAzole 5 MG TAB PO SCH ×2 (08:31→16:32)
[2016-07-11] MEDS: Fluconazole IV 200mg/100 ml NS 100 ML IVPB SCH (08:32)
[2016-07-11] MEDS: Hydrocortisone- 50 MG in Sodium Chloride 0.9% 100 ML IV SCH (08:32)
[2016-07-11] MEDS: Linezolid 600 mg in D5W 300 ml 300 ML IVPB SCH ×2 (08:33→20:33)
--- NOTE | 2016-07-11 09:30 | CP.PCM.PN ---
Subjective - Date & Time of Evaluation Date of Evaluation: 07/11/16 Time of Evaluation: 08:15 - Subjective Subjective: No fever Re,felicity intubated on Mech Vent Sedated on Diprivan no diarrhea good urine output Objective - Vital Signs/Intake and Output Vital Signs (last 24 hours): Temp Pulse Resp BP Pulse Ox 97.9 F 97 H 16 90/55 L 100 07/11/16 08:00 07/11/16 08:00 07/11/16 08:00 07/11/16 08:00 07/11/16 08:00 Intake and Output: 07/11/16 07/11/16 06:59 18:59 Intake Total 1086 Output Total 1120 Balance -34 - Medications Medications: Current Medications Acetaminophen (Tylenol 650mg/20.3ml Solution Ud) 650 mg PO Q8 [facility] Last Admin: 07/11/16 02:00 Dose: Not Given Albuterol Sulfate (Albuterol 0.083% Inhal Aby (2.5 Mg/3 Ml) Ud) 2.5 mg INH RQ4 PRN PRN Reason: Shortness of Breath Anastrozole (Arimidex 1 Mg Tab) 1 mg PO DAILY [facility] Last Admin: 07/11/16 08:29 Dose: 1 mg Baclofen (Lioresal) 10 mg PO HS [facility] Last Admin: 07/10/16 22:39 Dose: Not Given Enoxaparin Sodium (Lovenox) 40 mg SC DAILY [facility] PRN Reason: Protocol Last Admin: 07/11/16 08:30 Dose: 40 mg Gabapentin (Neurontin) 600 mg PO Q8 [facility] Last Admin: 07/11/16 08:30 Dose: 600 mg Fluconazole (Diflucan Iv 200 Mg/100 Ml Ns) 100 mls @ 100 mls/hr IVPB DAILY [facility] Last Admin: 07/11/16 08:32 Dose: 100 mls/hr Hydrocortisone Sodium Succinate 50 mg/ Sodium Chloride 100 mls @ 100 mls/hr IV DAILY [facility] Last Admin: 07/11/16 08:32 Dose: 100 mls/hr Linezolid (Zyvox 600mg/300ml D5w) 300 mls @ 300 mls/hr IVPB Q12 [facility] Last Admin: 07/11/16 08:33 Dose: 300 mls/hr Trimethoprim/Sulfamethoxazole (435 mg/ Dextrose) 500 mls @ 333.333 mls/hr IVPB Q12H [facility] Last Admin: 07/11/16 02:57 Dose: 333.333 mls/hr Levofloxacin/Dextrose (Levaquin 500mg) 100 mls @ 100 mls/hr IVPB DAILY [facility] Last Admin: 07/11/16 08:33 Dose: 100 mls/hr Propofol (Diprivan) 100 mls @ 1.739 mls/hr IV .Q24H [facility]; 5 MCG/KG/MIN PRN Reason: Protocol Stop: 07/11/16 21:01 Last Admin: 07/11/16 03:14 Dose: 8.695 mls/hr Ipratropium [place] (Atrovent) 0.5 mg IH RQ8 [facility] Last Admin: 07/11/16 08:00 Dose: 0.5 mg Lactobacillus Acidophilus (Bacid Acidophilus) 1 cap PO BID [facility] Last Admin: 07/10/16 16:51 Dose: 1 cap Levalbuterol HCl (Xopenex) 1.25 mg INH RQ8 [facility] Last Admin: 07/11/16 08:00 Dose: 1.25 mg Loperamide HCl (Imodium) 2 mg PO QID PRN PRN Reason: Loose stools Last Admin: 07/08/16 08:57 Dose: 2 mg Methimazole (Tapazole) 5 mg PO BID [facility] Last Admin: 07/11/16 08:31 Dose: 5 mg Morphine Sulfate (Morphine) 2 mg IVP Q4 PRN PRN Reason: Pain, moderate (4-7) Last Admin: 07/11/16 05:49 Dose: 2 mg Multi-Ingredient Cream (Hydrocerin Cream) 1 applic TOP BID [facility] Last Admin: 07/10/16 18:57 Dose: 1 applic Multivitamins/Minerals (Therapeutic-M Tab) 1 tab PO DAILY [facility] Last Admin: 07/11/16 08:31 Dose: 1 tab Nitroglycerin (Nitro-Bid 2% Oint) 1 in TOP Q6 [facility] Last Admin: 07/11/16 05:46 Dose: Not Given Pantoprazole Sodium (Protonix Ec Tab) 40 mg PO DAILY [facility] Last Admin: 07/11/16 08:30 Dose: 40 mg Roflumilast (Daliresp) 500 mcg PO DAILY [facility] Last Admin: 07/11/16 08:29 Dose: 500 mcg Spironolactone (Aldactone) 25 mg PO DAILY [facility] Last Admin: 07/11/16 08:28 Dose: 25 mg Zolpidem Tartrate (Ambien) 5 mg PO HS PRN PRN Reason: Sleep Last Admin: 07/08/16 22:43 Dose: 5 mg - Labs Labs: 07/11/16 05:30 07/11/16 05:30 PT 11.2 SECONDS (9.6-11.2) 07/09/16 08:00 INR 1.08 (0.92-1.08) 07/09/16 08:00 APTT 27.7 SECONDS (23.3-32.5) 07/09/16 08:00 - Constitutional Appears: Chronically Ill Intubated on Vent - Head Exam Head Exam: NORMAL INSPECTION, NORMOCEPHALIC - Eye Exam Eye Exam: EOMI, Normal appearance Pupil Exam: NORMAL ACCOMMODATION - ENT Exam ENT Exam: Mucous Membranes Dry, Normal External Ear Exam Additional comments: right facial abscess with [place] drain in place, + tenderness to touch - Neck Exam Neck Exam: Full ROM. absent: Meningismus - Respiratory Exam Intubated on [facility] vent - Cardiovascular Exam Cardiovascular Exam: REGULAR RHYTHM, +S1, +S2. tachycardic - GI/Abdominal Exam GI & Abdominal Exam: Soft, Normal Bowel Sounds. absent: Tenderness - Extremities Exam Extremities Exam: Normal Capillary Refill Additional comments: right shoulder deformity RUE edema mild pedal edema - Back Exam Back Exam: absent: CVA tenderness (L), CVA tenderness (R) - Neurological Exam Neurological Exam: Alert, Awake, CN II-XII Intact - Psychiatric Exam Psychiatric exam: Normal Affect, Normal Mood - Skin Skin Exam: Dry, Normal Color, Warm Assessment and Plan (1) Acute and chronic respiratory failure with hypercapnia Status: Acute (2) Osteomyelitis of mandible Status: Acute (3) Hypothyroidism Status: Acute (4) Acute exacerbation of chronic obstructive pulmonary disease (COPD) Status: Acute (5) HTN (hypertension) Status: Chronic (6) Hx of breast cancer Status: Chronic (7) Acute exacerbation of CHF (congestive heart failure) Status: Acute (8) Hypokalemia Status: Acute (9) Facial abscess Status: Acute (10) DVT prophylaxis Status: Acute - Assessment and Plan (Free Text) Assessment: 66 y/o female PMH COPD, bilateral breast CA s/p chemo and radiation 8 years ago , HTN, Hyperthyroidism presented with 2 week history of worsening bilateral lower extremity swelling and weakness, unable to get herself up to her walker. Patient has mild dyspnea at baseline. She also came with a large right facial swelling for almost 2 weeks and was taking PO antibiotics prescribed by her dentist. Patient was admitted for generalized weakness , Hyponatremia and Facial abscess. She was started on IV antibiotics for facial abscess and Lasix IV with fluid restriction for LE edema. Maxillofacial Ct showed possible abscess accumulation. Evaluated by Oromaxillofacial surgeon and underwent Incision and drainage of abscess. Bone scan showed possible osteomyelitis . ID recommends 4-6 wks IV abx treatment. During this hospitalization noted to have increased dyspnea at rest and more so with minimal activity, decreased air entry bilaterally and increased work of breathing. She was started on high flow O2, Higher doses of theophylline and IV hydrocortisone. CTA chest and LE doppler showed no DVT , except right cephallic cherelle thrombosis . She was transferred to ICU for close monitoring for tachypnea and tachycardia. She underwent IR drainage on 06/24 of right facial abscess due to re accumulation and cultures came positive for VRE and bria. Antibiotics were changed to Zyvox , Meropenem and Fluconazone. Despite drainage and IV antibiotics she still kept complaining of pain to right supramandibular area with increased swelling. Repeat CT showed abscess formation. Patient underwent I&D in OR 07/06/16 with cynthia drainage placement. She continues to have episodes of resp distress - tachypneic , tachycardic , with chest congestion , unable to expectorate despite high flow O2 therapy, Duonebs and Corticosteroids. Theophylline discontinued and Daliresp started. 07/07/16 underwent Bronchoscopy while still intubated post maxillofacial abscess I&D with BAL , c/s: S Maltophilia. Dr Obrien changed abx now on IV bactrim, Levaquin , Zyvox and Fluconazole. Severe Resp distress on 07/09 and pt was Intubated . 1. Acute on Chronic Respiratory Failure with hypercapnea Intubated on 07/09 on Mech Vent rpt CTA Pulm 07/09 : no PE, RLL opacity, Emphysematous changes s/p bronchoscopy 07/07/16 with BAL of florez colored thick secretions for LLL, RLL and RML . Culture showed S maltiphilia - abx changed by ID to IV bactrim, Levaquin , and cont on Zyvox and Fluconazole tapered Hydrocortisone to 50 mg IV daily 2. Chest Pain , prob sec to Anxiety, ACS ruled out with recurrent pressure like chest pain on and off cardiology consult : Dr. Luu Trop -- negative and EKG showed no ST-T wave changes Most likely atypical chest pain related to anxiety , hypokalemia and COPD. There is no signs of ischemia 3. Facial abscess with mandibular Osteomyelitis s/p drainage of abscess with penreose drain placement s/p Incision and drainage on 06/[address] Anderson maxillofacial surgeon and rpt I&D 07/06 , now with [place] drain placed pathology report showed inflammatory cells, no malignancy Nuclear Bone Scan suggestive of osteomyelitis initial cultures were with no growth so was started on Zosyn ,and Clindamycin IV ID consult with Dr Obrien appreciated .. Recommended IV abx 6 wks total ( # Day ) Tunneled central line placed for prison IV antibiotics- this will need to be d/c by IR after IV abx treatment is completed ( as discussed with Dr Gunter - pt was informed of need to see IR after abx tx) Due to increased swelling and pain patient underwent drainage of facial collection by IR on 06/24 and 24 ml yellow fluid obtained. Cultures reported as VRE and Bria Antibiotics changed to Zyvox , Bactrim, Levaquin and Fluconazole ENT consulted , Dr Priest did not think it was a Parotid gland infection 4. Bilateral LE edema sec to CHF exacerbation with diastolic dysfxn Echo showed EF 40-45 % and dilated RV continue fluid restriction Promote ambulation 5. Hypokalemia multifactorial diuretic induced , Albuterol, Hypothyroidism and GI loss off Lasix Continue KCl runs and PO replacement as needed Nephro consult appreciated CT of abd showed no adrenal mass 6 .Hyponatremia, resolved most likely secondary to solute depletion and infection Continue fluid restriction 7.Hx breast ca, bilateral stable, s/p bilateral mastectomy continue Arimidex 8. Tachycardia -- multifactorial Hx of HTN was on verapamil at home ( 80mg tid) but decreased dose due to low BP and now discontinued as may contribute to leg edema continue monitoring Albuterol changed to Xopenex 9. Hypothyroidism/ Hyperthyroidism patient has history of hyperthyroidism , was on Methimazole and noticed to had developed hypothyroidism so Methimazole was d/c and she was started on Po levothyroxine this admission , TSH then went down and Metrhimazole restarted Methimazole 5 mg po bid restarted as discussed with Dr Vu 10. Anemia, chronic dis monitor anemia work up showed depleted iron stores Venofer IV given s/p 2 units PRBC transfusion 11. Right cephalic vein thrombosis ( superficial vein) no need for therapeutic anticoag 12.DVT ppx on lovenox
[2016-07-11] MEDS: Lactobacillus Acidophilus 500 MU Cap PO SCH ×2 (12:10→16:43)
[2016-07-11] MEDS: Hydrocerin CREAM TOP SCH ×2 (12:11→16:31)
--- NOTE | 2016-07-11 13:08 | PN ---
DATE: 07/11/2016 LOCATION: The patient in ICU, bed 434. TIME SPENT: 35 minutes. The patient is seen and evaluated at the bedside. Events since admission reviewed. Overnight, remai ns intubated on mechanical ventilation, AC/PRVC 12, tidal volume of 400, FiO2 45%. Exhaled rate 16, exhaled tidal volume of 415, peak inspiratory pressure 33, mean airway pressure 11, end tidal CO2 22, minute ventilation 4.6 liters, normotensive. Afebrile this morning. On ventilator, setting [facility] ed, saturating 100%. PHYSICAL EXAMINATION: VITAL SIGNS: Temperature 97.8, heart rate 105, regular, blood pressure 90/60, saturating 99%. Intak e 1921, output 1590, positive 331. Weight 127 pounds. HEENT: Pupils reactive to light and accommodation. Extraocular muscles intact. Sclerae are anicter ic. NECK: Supple. Endotracheal tube in place. No secretion noted. CHEST: Bilateral breath sounds, diminished in intensity. Fine crepitations at the bases, scattered rhonchi. HEART: Rhythm regular. S1, S2 normal. No audible rub or murmur. ABDOMEN: Bowel sounds present, soft. EXTREMITIES: Lymphedema on the right upper extremity, unchanged. No clubbing, cyanosis, 1+ edema. NEUROLOGIC: Sedated on Diprivan drip. CURRENT MEDICATIONS: Tylenol 650 q. 8 p.r.n., DuoNeb 3 mL via nebulizer q. 4 hours, Arimidex 1 mg 1 tablet daily, baclofen 10 mg p.o. at bedtime, Lovenox 40 subQ daily, Diflucan 1200 mg daily, Neuronti n 600 mg q. 8, hydrocortisone 50 mg IV daily, Atrovent 0.5 mg inhalation q. 8 hours, lactobacillus 1 capsule twice daily, Xopenex 1.25 mg q. 8 hours, levofloxacin 500 mg IV daily, Zyvox 600 mg q. 12, Im odium 2 mg p.o. q.i.d. p.r.n., Tapazole 5 mg twice daily, morphine 2 mg IV q. 4 p.r.n., cream 1 application topically twice daily, multivitamin 1 tablet daily, nitroglycerin, Nitro-Bid 2% ointment 1 inch topically q. 6 hours, Protonix 40 daily, Daliresp 500 mcg p.o. daily, Aldactone 25 mg daily, trimethoprim sulfamethoxazole 435 mg q. 12, zolpidem 5 mg at bedtime. IMPRESSION AND PLAN: Hypercapnic hypoxic respiratory failure, comfortable on the current setting, st atus post spontaneous breathing trial failed, not ready for weaning today. Continue bronchodilator, Solu-Medrol, sepsis associated with pneumonia, bronchial positive for Stenotrophomonas maltophi camila, on levofloxacin and Bactrim. Continue other antibiotic as per ID, hyperthyroidism, on methimazo le. Appreciate endocrine followup. Osteomyelitis right mandible, status post incision and drainage. Continue meropenem, Zyvox, fluconazole, deep venous thrombosis and gastrointestinal prophylaxis. K eep head of bed at 40 degrees up, keep blood sugar less than 180 mg. Kuldip Jenkins MD cc: [id number] TT: 07/11/2016 13:07:58 Confirmation # [id number] Dictation # [id number] rafael
--- NOTE | 2016-07-11 15:44 | PN ---
DATE: 07/11/2016 ROOM: 434 ICU. This is a 66-year-old female with recent admission for congestive heart failure and supervening acute exacerbation of COPD, and is now being followed closely for metabolic management. She has now rever sed her thyroid indices from hypothyroidism to hyperthyroid accelerations as noted. Her latest chemistries showed a BUN of 6, sodium 137, potassium 3.5, chloride 97, CO2 34, glucose 205 , creatinine is 0.3. So at this time, we will continue the same low dose Tapazole given as 5 mg p.o. b.i.d. after meals as ordered. We will titrate incrementally as indicated to optimize metabolic control. We will follow. Polly Vu MD cc: [id number] TT: 07/11/2016 15:43:47 Confirmation # [id number] Dictation # [id number]
[2016-07-12] MEDS: Acetaminophen 650mg/20.3ml solution UD PO SCH ×3 (01:00→17:15)
[2016-07-12] MEDS: WATER IVPB SCH ×2 (01:50→17:12)
[2016-07-12] MEDS: SULFAMETHOXAZOLE IVPB SCH ×2 (01:50→17:12)
[2016-07-12] MEDS: TRIMETHOPRIM IVPB SCH ×2 (01:50→17:12)
[2016-07-12] MEDS: DEXTROSE 5% IVPB SCH ×2 (01:50→17:12)
[2016-07-12] MEDS: Nitroglycerin 2% 1GM UD TOP SCH ×4 (04:18→22:36)
[2016-07-12 05:13] LABS: ABG ALLEN TEST YES; ABG MECHANICAL RATE 12; ARTERIAL BLOOD GAS HCO3 32.8 mmol/L (21-28); ARTERIAL BLOOD GAS MODE A/C; ARTERIAL BLOOD GAS O2 CAPACITY 12.7 mL/dL (16-24); ARTERIAL BLOOD GAS O2 CONTENT 12.6 ML/dL (15-23); ARTERIAL BLOOD GAS PH 7.38 (7.35-7.45); ARTERIAL BLOOD GAS PO2 124 mm/Hg (80-100); ARTERIAL BLOOD HGB O2 SAT 97.5 % (95.0-98.0); ATERIAL BLOOD GAS PEEP 5; CARBOXYHEMOGLOBIN 1.5 % (0.5-1.5); HHB 0.5 % (0.0-5.0); METHEMOGLOBIN 0.5 % (0.0-3.0)
[2016-07-12 05:46] LABS: BASO % 0.4 % (0.0-2.0); EOS % 0.5 % (0.0-4.0); HEMATOCRIT 28.3 % (34.0-47.0); LYMPH # 0.5 K/uL (1.0-4.3); LYMPH % 6.7 % (20.0-40.0); MEAN CELL VOLUME 84.2 fl (81.0-99.0); MEAN CORPUSCULAR HEMOGLOBIN 27.4 pg (27.0-31.0); MEAN CORPUSCULAR HGB CONC 32.6 g/dL (33.0-37.0); MEAN PLATELET VOLUME 8.4 fl (7.2-11.7); MONO # 0.4 K/uL (0.0-0.8); MONO % 6.4 % (0.0-10.0); PLATELET COUNT 110 K/uL (130-400); RED CELL DISTRIBUTION WIDTH 30.2 % (11.5-14.5)
[2016-07-12 06:00] LABS: T4 4.77 ug/dl (5.5-11.0)
[2016-07-12 06:14] LABS: THYROID STIMULATING HORMONE 3.42 mIU/ML (0.46-4.68)
[2016-07-12 06:40] LABS: ALKALINE PHOSPHATASE 101 U/L (38-126); ALT/SGPT 37 U/L (9-52); AST/SGOT 29 U/L (14-36); BILIRUBIN,TOTAL < 0.1 mg/dl (0.2-1.3); BLOOD UREA NITROGEN 7 mg/dl (7-17); CALCIUM 8.3 mg/dL (8.4-10.2); CARBON DIOXIDE 35 mmol/L (22-30); CHLORIDE 93 mmol/L (98-107); GFR AFRICAN-AMERICAN > 60; GLUCOSE,RANDOM 79 mg/dL (65-105); POTASSIUM 4.1 MMOL/L (3.6-5.0); SODIUM 136 mmol/l (132-148); TOTAL PROTEIN 4.9 G/DL (6.3-8.2)
[2016-07-12] MEDS: Ipratropium 0.02% Inhal Soln (0.5 mg/2.5 ml) UD IH SCH ×2 (07:51→15:41)
[2016-07-12] MEDS: Levalbuterol 1.25 MG/3 ML Inhal Soln UD INH SCH ×2 (07:51→15:41)
--- NOTE | 2016-07-12 08:52 | CP.PCM.PN ---
Subjective - Date & Time of Evaluation Date of Evaluation: 07/12/16 Time of Evaluation: 08:50 - Subjective Subjective: Interim events reviewed. Awake and alert, orally intubated and mechanically ventilated. Indicates she is having pain in both lower extremities. Labs reviewed, Hgb stable at 9.2GM. CXR shows good expansion, blunted CP angles bilaterally. Today's ABG has been reviewed. Dependant edema still ++ (genaralized). No cyanosis. PAP 23cm, plateau 18cm, RR 14, SpO2 100% I:E 1:3, Vt 400ml, PEEP 5cm. Neck is supple and trachea midline. Buccal drains (#2) in place, minimal drainage on dressing. No dullness on chest percussion, no subcut emphysema. Breath sounds are diminished bilaterally, more so posteriorly. Prolonged E phase with few medium wheezes L>R. No bronchial breath sounds appreciated. Heart rate 100, regular. Abdomen is soft with +BS, non-tender. Unable to wean over the weekend, not likely to do so at the present time. All antibiotics reviewed. Minor ventilator changes made this morning. Change to methylprednisolone from hydrocortisone. Increase PRN analgesia slightly. Monitor H&H for transfusion needs. Discussed with her daughter on Tuesday regarding the poor prognosis. Objective - Vital Signs/Intake and Output Vital Signs (last 24 hours): Temp Pulse Resp BP Pulse Ox 98.4 F 108 H 14 90/53 L 100 07/12/16 08:00 07/12/16 08:00 07/12/16 08:00 07/12/16 08:00 07/12/16 08:00 Intake and Output: 07/11/16 07/12/16 23:59 11:59 Intake Total 500 1101 Output Total 1300 Balance 500 -199 - Medications Medications: Current Medications Acetaminophen (Tylenol 650mg/20.3ml Solution Ud) [address] [facility] Last Admin: 07/12/16 01:00 Dose: Not Given Albuterol Sulfate (Albuterol 0.083% Inhal Aby (2.5 Mg/3 Ml) Ud) 2.5 mg INH RQ4 PRN PRN Reason: Shortness of Breath Anastrozole (Arimidex 1 Mg Tab) [address] [facility] Last Admin: 07/11/16 08:29 Dose: 1 mg Baclofen (Lioresal) 10 mg PO HS [facility] Last Admin: 07/11/16 21:53 Dose: 10 mg Enoxaparin Sodium (Lovenox) 40 mg SC DAILY [facility] PRN Reason: Protocol Last Admin: 07/11/16 08:30 Dose: 40 mg Gabapentin (Neurontin) [address] [facility] Last Admin: 07/12/16 00:37 Dose: 600 mg Fluconazole (Diflucan Iv 200 Mg/100 Ml Ns) 100 mls @ 100 mls/hr IVPB DAILY [facility] Last Admin: 07/11/16 08:32 Dose: 100 mls/hr Linezolid (Zyvox 600mg/300ml D5w) 300 mls @ 300 mls/hr IVPB Q12 [facility] Last Admin: 07/11/16 20:33 Dose: 300 mls/hr Trimethoprim/Sulfamethoxazole (435 mg/ Dextrose) 500 mls @ 333.333 mls/hr IVPB Q12H [facility] Last Admin: 07/12/16 01:50 Dose: 333.333 mls/hr Levofloxacin/Dextrose (Levaquin 500mg) 100 mls @ 100 mls/hr IVPB DAILY [facility] Last Admin: 07/11/16 08:33 Dose: 100 mls/hr Propofol (Diprivan) 100 mls @ 8.695 mls/hr IV .[id number] [facility]; 25 MCG/KG/MIN PRN Reason: Protocol Last Admin: 07/12/16 03:25 Dose: 8.695 mls/hr Methylprednisolone 40 mg/ (Sodium Chloride) 50 mls @ 100 mls/hr IV Q12 [facility] Ipratropium [place] (Atrovent) 0.[address] [facility] Last Admin: 07/12/16 07:51 Dose: 0.5 mg Lactobacillus Acidophilus (Bacid Acidophilus) [address] [facility] Last Admin: 07/11/16 16:43 Dose: 1 cap Levalbuterol HCl (Xopenex) 1.[address] [facility] Last Admin: 07/12/16 07:51 Dose: 1.25 mg Loperamide HCl (Imodium) 2 mg PO QID PRN PRN Reason: Loose stools Last Admin: 07/08/16 08:57 Dose: 2 mg Methimazole (Tapazole) [address] [facility] Last Admin: 07/11/16 16:32 Dose: 5 mg Morphine Sulfate (Morphine) [address] [facility] Multi-Ingredient Cream (Hydrocerin Cream) [address] [facility] Last Admin: 07/11/16 16:31 Dose: 1 applic Multivitamins/Minerals (Therapeutic-M Tab) [address] [facility] Last Admin: 07/11/16 08:31 Dose: 1 tab Nitroglycerin (Nitro-Bid 2% Oint) 1 in TOP Q6 [facility] Last Admin: 07/12/16 04:18 Dose: Not Given Pantoprazole Sodium (Protonix Ec Tab) [address] [facility] Last Admin: 07/11/16 08:30 Dose: 40 mg Roflumilast (Daliresp) [address] [facility] Last Admin: 07/11/16 08:29 Dose: 500 mcg Spironolactone (Aldactone) [address] [facility] Last Admin: 07/11/16 08:28 Dose: 25 mg Zolpidem Tartrate (Ambien) 5 mg PO HS PRN PRN Reason: Sleep Last Admin: 07/11/16 22:47 Dose: 5 mg - Labs Labs: 07/12/16 05:00 07/12/16 05:00 PT 11.2 SECONDS (9.6-11.2) 07/09/16 08:00 INR 1.08 (0.92-1.08) 07/09/16 08:00 APTT 27.7 SECONDS (23.3-32.5) 07/09/16 08:00 Assessment and Plan (1) Acute bronchitis with chronic obstructive pulmonary disease (COPD) Status: Acute (2) Hyperthyroidism Status: Chronic (3) Abscess Status: Acute (4) Hypokalemia Status: Acute
[2016-07-12] MEDS: Lactobacillus Acidophilus 500 MU Cap PO SCH ×2 (09:01→17:16)
[2016-07-12] MEDS: Fluconazole IV 200mg/100 ml NS 100 ML IVPB SCH (09:03)
[2016-07-12] MEDS: Hydrocerin CREAM TOP SCH ×2 (09:04→17:13)
[2016-07-12] MEDS: Enoxaparin 40 mg Syringe SC SCH (09:06)
[2016-07-12] MEDS: Pantoprazole 40 mg EC Tab PO SCH (09:07)
[2016-07-12] MEDS: methIMAzole 5 MG TAB PO SCH (09:08)
[2016-07-12] MEDS: Linezolid 600 mg in D5W 300 ml 300 ML IVPB SCH ×2 (09:08→21:00)
[2016-07-12] MEDS: Multivitamin With Minerals Tab PO SCH (09:22)
[2016-07-12] MEDS: methylPREDNISolone 40 MG in Sodium Chloride 0.9% 50 ML IV SCH ×2 (09:32→21:56)
[2016-07-12 10:16] LABS: BASOPHIL 1 % (0-2); NEUTROPHIL 86 % (42-75); REACTIVE LYMPHOCYTES 1 % (0-0); TOTAL CELLS COUNTED 100
[2016-07-12 10:18] LABS: LARGE PLATELETS PRESENT
--- NOTE | 2016-07-12 13:16 | RAD ---
HISTORY: Pt. intubated and with OGT . Technique: Single view portable erect @ 04:35. COMPARISON: Multiple serial examinations preceding the most recent study: 07/10/2016 FINDINGS: LUNGS: Improved aeration of the lower lobes. PLEURA: Stable bilateral pleural effusions. CARDIOVASCULAR: No radiographic findings to suggest acute or significant cardiovascular disease. OSSEOUS STRUCTURES: No significant abnormalities. VISUALIZED UPPER ABDOMEN: Normal. OTHER FINDINGS: Stable, satisfactory position ventilatory, vascular and nasogastric apparatus. . IMPRESSION: Improved aeration of the lungs. Otherwise stable examination.
--- NOTE | 2016-07-12 16:53 | PN ---
DATE: 07/12/2016 ROOM: 434 ICU SUBJECTIVE: This is a 66-year-old female with recent overt hyperthyroidism on the low dose medical t herapy and being managed and followed hemodynamically for recent congestive heart failure and acute e xacerbation of COPD with respiratory insufficiency. Her latest chemistries include a BUN of 7, sodiu m 136, potassium 4.1, chloride 93, CO2 of 35, glucose 79 and creatinine 0.3. Her latest thyroid stud y showed a T4 of 4.77 with a TSH of 3.42 and a free T4 of 0.79. She is once again going into subclin ical hypothyroidism at this time and so we will lower the Tapazole now to 5 mg once daily starting on Tuesday morning as ordered. We will titrate incrementally as indicated to optimize metabolic cont rol. We will also obtain serial thyroid studies and adjust her dose regimen accordingly. We will fo llow. Polly Vu MD cc: [id number] TT: 07/12/2016 16:52:29 Confirmation # [id number] Dictation # [id number]
--- NOTE | 2016-07-12 18:23 | PN ---
DATE: 07/12/2016 The patient in ICU, bed 434. TIME SPENT: 35 minutes. The patient is seen, evaluated at the bedside. Events overnight reviewed. Remains orally intubated, mechanically ventilated on AC/PRVC rate 14, tidal volume of 400, FiO2 40%, observed rate 40, exhaled tidal volume 430, saturating 99%. Sedated on Diprivan drip, arousable, opens eyes, follows commands . Noted to have discomfort in lower extremities, also right side of the chest wall. PHYSICAL EXAMINATION: VITAL SIGNS: Temperature 98.6, heart rate 90, blood pressure 91/55, mean arterial pressure 65. Inta ke 1504, output 1300, positive 204. Weight 127 pounds. HEENT: Pupils reactive. Conjunctivae pink. Sclerae white. NECK: Supple. CHEST: Bilateral breath sounds, expiration prolonged, bilateral scattered rhonchi. HEART: Rhythm regular. S1, S2 normal. ABDOMEN: Bowel sounds present, soft, nontender. NEUROLOGIC: Sedated on Diprivan drip. CURRENT MEDICATIONS: Include Tylenol 650 q. 8 p.r.n., DuoNeb 3 mL via nebulizer q. 4, Arimidex 1 mg daily, baclofen 10 mg p.o. at bedtime daily, Lovenox 40 subQ daily, Diflucan 200 mg at 100 mL per nick r daily, Neurontin 600 mg p.o. q. 8 hours, Atrovent 0.5 mg q. 8 hours, lactobacillus 1 capsule twice daily, Xopenex 1.25 mg q. 8, levofloxacin 500 mg IV daily, Zyvox 600 mg q. 12, Imodium 2 mg p.o. q.i. d. p.r.n., Tapazole 5 mg p.o. daily, Solu-Medrol 40 mg q. 12, morphine 2 mg IV q. 2 p.r.n. for pain, Nitro-Bid 2% ointment 1 topically q. 6 hours, Protonix 40 mg p.o. daily. LABORATORY DATA: WBC 7, hemoglobin 9.2, hematocrit 28.3, platelet count 110. PT 11.2, INR 1.08, PTT 27.7. ABG: pH 7.38, pCO2 62, pO2 124, saturating 99.5% on AC 12/440, PEEP of 5. SMA-7: Sodium 13 6, potassium 4.1, chloride 93, CO2 35, BUN 7, creatinine 0.3, glucose 79, total bilirubin is less rosemary n 0.1, AST 29, ALT 37, alkaline phosphatase 101, total protein 4.9, albumin 2.4. IMPRESSION: Ventilator-dependent respiratory failure, acute bronchitis with chronic obstructive pulm onary disease, hyperthyroidism on Tapazole 5 mg twice daily, right facial osteomyelitis, status post drainage, on broad spectrum antibiotics, hypokalemia, corrected. Prognosis remains guarded. The pat ient not able to wean off the ventilator currently as becomes more tachypnea as the vent support is r educed. Continue deep venous thrombosis and gastrointestinal prophylaxis. Closely monitor hemoglobi n and hematocrit. Kuldip Jenkins MD cc: [id number] TT: 07/12/2016 18:22:53 Confirmation # [id number] Dictation # [id number] en
--- NOTE | 2016-07-12 18:46 | CP.PCM.PN ---
Subjective - Date & Time of Evaluation Date of Evaluation: 07/12/16 Time of Evaluation: 14:00 - Subjective Subjective: Patient was seen and evaluated bedside. Chronically ill female intubated on MV PRVC/ Ac mode 14/450/5/40 5 , sedated on propofol drip but awake and alert , opens eyes and responding to questions, following commands.ABG 62/124/32/7.3 this AM and CXr showed improvement with air entry bilaterally still tachycardic HR 108, remains afebrile, Bp 90/53 WBC 7 k hgb 9.2 Plt [address] with good urine output I/O 1504/[address] with jevity 2 40 ml/hr Objective - Vital Signs/Intake and Output Vital Signs (last 24 hours): Temp Pulse Resp BP Pulse Ox 98.6 F 93 H 17 96/58 L 100 07/12/16 16:00 07/12/16 18:14 07/12/16 18:14 07/12/16 18:14 07/12/16 18:14 Intake and Output: 07/12/16 07/12/16 06:59 18:59 Intake Total 1504 1597 Output Total 1300 1400 Balance 204 197 - Medications Medications: Current Medications Acetaminophen (Tylenol 650mg/20.3ml Solution Ud) 650 mg PO Q8 [facility] INCLUDES [facility] Last Admin: 07/12/16 17:15 Dose: 650 mg Albuterol Sulfate (Albuterol 0.083% Inhal Aby (2.5 Mg/3 Ml) Ud) 2.5 mg INH RQ4 PRN PRN Reason: Shortness of Breath Anastrozole (Arimidex 1 Mg Tab) 1 mg PO DAILY COUNT INCLUDES [facility] Last Admin: 07/12/16 09:00 Dose: 1 mg Baclofen (Lioresal) 10 mg PO HS COUNT INCLUDES [facility] Last Admin: 07/11/16 21:53 Dose: 10 mg Enoxaparin Sodium (Lovenox) 40 mg SC DAILY ANDREAS PRN Reason: Protocol Last Admin: 07/12/16 09:06 Dose: 40 mg Gabapentin (Neurontin) 600 mg PO Q8 [facility]CLUDES [facility] Last Admin: 07/12/16 17:13 Dose: 600 mg Fluconazole (Diflucan Iv 200 Mg/100 Ml Ns) 100 mls @ 100 mls/hr IVPB DAILY COUNT INCLUDES [facility] Last Admin: 07/12/16 09:03 Dose: 100 mls/hr Linezolid (Zyvox 600mg/300ml D5w) 300 mls @ 300 mls/hr IVPB Q12 COUNT INCLUDES [facility] Last Admin: 07/12/16 09:08 Dose: 300 mls/hr Trimethoprim/Sulfamethoxazole (435 mg/ Dextrose) 500 mls @ 333.333 mls/hr IVPB Q12H COUNT INCLUDES THE [facility] Last Admin: 07/12/16 17:12 Dose: 333.333 mls/hr Levofloxacin/Dextrose (Levaquin 500mg) 100 mls @ 100 mls/hr IVPB DAILY COUNT INCLUDES [facility] Last Admin: 07/12/16 09:06 Dose: 100 mls/hr Propofol (Diprivan) 100 mls @ 8.695 mls/hr IV .[id number] ANDREAS; 25 MCG/KG/MIN PRN Reason: Protocol Last Titration: 07/12/16 14:42 Dose: 25 mcg/kg/min Methylprednisolone 40 mg/ (Sodium Chloride) 50 mls @ 100 mls/hr IV Q12 [facility]CLUDES [facility] Last Admin: 07/12/16 09:32 Dose: 100 mls/hr Ipratropium [place] (Atrovent) 0.5 mg IH RQ8 COUNT INCLUDES [facility] Last Admin: 07/12/16 15:41 Dose: 0.5 mg Lactobacillus Acidophilus (Bacid Acidophilus) 1 cap PO BID COUNT INCLUDES THE [facility] Last Admin: 07/12/16 17:16 Dose: 1 cap Levalbuterol HCl (Xopenex) 1.25 mg INH RQ8 [facility]CLUDES [facility] Last Admin: 07/12/16 15:41 Dose: 1.25 mg Loperamide HCl (Imodium) 2 mg PO QID PRN PRN Reason: Loose stools Last Admin: 07/08/16 08:57 Dose: 2 mg Methimazole (Tapazole) 5 mg PO DAILY COUNT INCLUDES [facility] Morphine Sulfate (Morphine) 2 mg IVP Q2 PRN PRN Reason: Pain, moderate (4-7) Last Admin: 07/12/16 15:46 Dose: 2 mg Multi-Ingredient Cream (Hydrocerin Cream) 1 applic TOP BID COUNT INCLUDES THE [facility] Last Admin: 07/12/16 17:13 Dose: 1 applic Multivitamins/Minerals (Therapeutic-M Tab) 1 tab PO DAILY COUNT INCLUDES [facility] Last Admin: 07/12/16 09:22 Dose: 1 tab Nitroglycerin (Nitro-Bid 2% Oint) 1 in TOP Q6 COUNT INCLUDES [facility] Last Admin: 07/12/16 17:14 Dose: Not Given Pantoprazole Sodium (Protonix Ec Tab) 40 mg PO DAILY COUNT INCLUDES [facility] Last Admin: 07/12/16 09:07 Dose: 40 mg Roflumilast (Daliresp) 500 mcg PO DAILY COUNT INCLUDES [facility] Last Admin: 07/12/16 09:03 Dose: 500 mcg Spironolactone (Aldactone) 25 mg PO DAILY COUNT INCLUDES [facility] Last Admin: 07/12/16 09:00 Dose: 25 mg Zolpidem Tartrate (Ambien) 5 mg PO HS PRN PRN Reason: Sleep Last Admin: 07/11/16 22:47 Dose: 5 mg - Labs Labs: 07/12/16 05:00 07/12/16 05:00 PT 11.2 SECONDS (9.6-11.2) 07/09/16 08:00 INR 1.08 (0.92-1.08) 07/09/16 08:00 APTT 27.7 SECONDS (23.3-32.5) 07/09/16 08:00 - Constitutional Appears: No Acute Distress, Older Than Stated Age, Chronically Ill, Other ( intuabted on MV , sedated on propofol drip but AAO) - Head Exam Head Exam: NORMOCEPHALIC Additional comments: right facial abscess with ginger drain in place , better , , no drainage , tender to touch - Eye Exam Eye Exam: EOMI, PERRL Pupil Exam: NORMAL ACCOMODATION, PERRL - ENT Exam ENT Exam: Mucous Membranes Dry - Neck Exam Neck Exam: Normal Inspection Additional comments: trachea midline - Respiratory Exam Respiratory Exam: Decreased Breath Sounds (bibasilar ). absent: Rhonchi, Wheezes, Respiratory Distress - Cardiovascular Exam Cardiovascular Exam: Tachycardia, REGULAR RHYTHM, +S1, +S2. absent: JVD - GI/Abdominal Exam GI & Abdominal Exam: Soft, Normal Bowel Sounds. absent: Distended, Guarding, Tenderness, Rebound - Rectal Exam Rectal Exam: Deferred - Extremities Exam Extremities Exam: Pedal Edema (1+ ( improved), RUE lymphedema) - Neurological Exam Neurological Exam: Alert, Awake - Psychiatric Exam Psychiatric exam: Anxious, Flat Affect - Skin Skin Exam: Dry, Pallor, Warm Additional comments: upper chest wall and LUE multiple echymotic areas Assessment and Plan - Assessment and Plan (Free Text) Assessment: 66 y/o female PMH COPD, bilateral breast CA s/p chemo and radiation 8 years ago , HTN, Hyperthyroidism presented with 2 week history of worsening bilateral lower extremity swelling and weakness, unable to get herself up to her walker. Patient has mild dyspnea at baseline. She also came with a large right facial swelling for almost 2 weeks and was taking PO antibiotics prescribed by her dentist. Patient was admitted for generalized weakness , Hyponatremia and Facial abscess. She was started on IV antibiotics for facial abscess and Lasix IV with fluid restriction for LE edema. Maxillofacial Ct showed possible abscess accumulation. Evaluated by Oromaxillofacial surgeon and underwent Incision and drainage of abscess. Bone scan showed possible osteomyelitis . ID recommends 4-6 wks IV abx treatment. During this hospitalization noted to have increased dyspnea at rest and more so with minimal activity, decreased air entry bilaterally and increased work of breathing. She was started on high flow O2, Higher doses of theophylline and IV hydrocortisone. CTA chest and LE doppler showed no DVT , except right cephallic cherelle thrombosis . She was transferred to ICU for close monitoring for tachypnea and tachycardia. She underwent IR drainage on 06/24 of right facial abscess due to re accumulation and cultures came positive for VRE and bria. Antibiotics were changed to Zyvox , Meropenem and Fluconazone. Despite drainage and IV antibiotics she still kept complaining of pain to right supramandibular area with increased swelling. Repeat CT showed abscess formation. Patient underwent I&D in OR 07/06/16 with ginger drainage placement. She continues to have episodes of resp distress - tachypneic , tachycardic , with chest congestion , unable to expectorate despite high flow O2 therapy, Duonebs and Corticosteroids. Theophylline discontinued and Daliresp started. 07/07/16 underwent Bronchoscopy while still intubated post maxillofacial abscess I&D with BAL showed Stenotrophomonas Maltophilia. Antibiotics changed to IV bactrim, Levaquin , Zyvox and Fluconazole. On 07/09 she developed severe respiratory distress with hypoxemia requiring intubation. At present still on MV PRVC/ AC mode , unable to wean off ventilator due to anxiety. 1. Acute on Chronic Respiratory Failure with hypercapnea [facility] to [facility] off vent but CXr showed improved air entry bilateral and ABG 62/ 124/32/7.3 Pulmonary on board following patient s/p bronchoscopy 07/07/16 with BAL gowing Stenotrophomonas maltophilla. Continue bactrim, levaquine, diflucan and zyvox as per ID Started Methylprednisone 40 mg Iv q12 and discontinued hydrocortisone ,continue daliresp and Xopenex weaning trials daily as tolerated with sedation vacation guarded prognosis 2. Chest Pain , prob sec to Anxiety, ACS ruled out with recurrent pressure like chest pain on and off cardiology consult : Dr. Luu Trop -- negative and EKG showed no ST-T wave changes Most likely atypical chest pain related to anxiety , hypokalemia and COPD. There is no signs of ischemia 3. Facial abscess with mandibular Osteomyelitis s/p drainage of abscess with penreose drain placement s/p Incision and drainage on 06/[address] Anderson maxillofacial surgeon and rpt I&D 07/06 , now with [place] drain placed pathology report showed inflammatory cells, no malignancy Nuclear Bone Scan suggestive of osteomyelitis initial cultures were with no growth so was started on Zosyn ,and Clindamycin IV ID consult with Dr Obrien appreciated .Recommended IV abx 6 wks total ( # Day ) Tunneled central line placed for intermediate accountant IV antibiotics- this will need to be d/c by IR after IV abx treatment is completed ( as discussed with Dr Gunter - pt was informed of need to see IR after abx tx) Due to increased swelling and pain patient underwent drainage of facial collection by IR on 06/24 and 24 ml yellow fluid obtained. Cultures reported as VRE and Bria Ginger drain placed on 07/[address] with minimal drainage) continue Zyvox , Bactrim, Levaquin and Fluconazole ENT consulted , Dr Priest 4. Bilateral LE edema sec to CHF exacerbation with diastolic dysfxn Echo showed EF 40-45 % and dilated RV continue fluid restriction Promote ambulation once better 5. Hypokalemia multifactorial diuretic induced , Albuterol, Hypothyroidism and GI loss off Lasix Continue KCl runs and PO replacement as needed Nephro consult appreciated CT of abd showed no adrenal mass 6 .Hyponatremia, resolved most likely secondary to solute depletion and infection Continue fluid restriction 7.Hx breast ca, bilateral stable, s/p bilateral mastectomy continue Arimidex 8. Tachycardia -- multifactorial Hx of HTN was on verapamil at home ( 80mg tid) but decreased dose due to low BP and now discontinued as may contribute to leg edema continue monitoring Albuterol changed to Xopenex 9. Hypothyroidism/ Hyperthyroidism patient has history of hyperthyroidism , was on Methimazole and noticed to had developed hypothyroidism so Methimazole was d/c and she was started on Po levothyroxine this admission , TSH then went down and Metrhimazole restarted Methimazole 5 mg po daily restarted as discussed with Dr Vu 10. Anemia, chronic dis monitor anemia work up showed depleted iron stores Venofer IV given s/p 2 units PRBC transfusion 11. Right cephalic vein thrombosis ( superficial vein) no need for therapeutic anticoag 12.DVT ppx on lovenox
--- NOTE | 2016-07-12 20:05 | CP.PCM.PN ---
Subjective - Date & Time of Evaluation Date of Evaluation: 07/12/16 Time of Evaluation: 18:04 - Subjective Subjective: ID NOTE HAVE DCed LEVAQUIN AND STARTED FORTAZ AFTER REVIEW OF C & S Objective - Vital Signs/Intake and Output Vital Signs (last 24 hours): Temp Pulse Resp BP Pulse Ox 98.6 F 93 H 17 96/58 L 100 07/12/16 16:00 07/12/16 18:14 07/12/16 18:14 07/12/16 18:14 07/12/16 18:14 Intake and Output: 07/12/16 07/13/16 18:59 06:59 Intake Total 1597 97 Output Total 1400 Balance 197 97 - Medications Medications: Current Medications Acetaminophen (Tylenol 650mg/20.3ml Solution Ud) 650 mg PO Q8 [facility] Last Admin: 07/12/16 17:15 Dose: 650 mg Anastrozole (Arimidex 1 Mg Tab) 1 mg PO DAILY [facility] Last Admin: 07/12/16 09:00 Dose: 1 mg Baclofen (Lioresal) 10 mg PO HS [facility] Last Admin: 07/11/16 21:53 Dose: 10 mg Enoxaparin Sodium (Lovenox) 40 mg SC DAILY ANDREAS PRN Reason: Protocol Last Admin: 07/12/16 09:06 Dose: 40 mg Gabapentin (Neurontin) 600 mg PO Q8 [facility] Last Admin: 07/12/16 17:13 Dose: 600 mg Fluconazole (Diflucan Iv 200 Mg/100 Ml Ns) 100 mls @ 100 mls/hr IVPB DAILY [facility] Last Admin: 07/12/16 09:03 Dose: 100 mls/hr Linezolid (Zyvox 600mg/300ml D5w) 300 mls @ 300 mls/hr IVPB Q12 ANDREAS Last Admin: 07/12/16 09:08 Dose: 300 mls/hr Trimethoprim/Sulfamethoxazole (435 mg/ Dextrose) 500 mls @ 333.333 mls/hr IVPB Q12H ANDREAS Last Admin: 07/12/16 17:12 Dose: 333.333 mls/hr Propofol (Diprivan) 100 mls @ 8.695 mls/hr IV .[id number] ANDREAS; 25 MCG/KG/MIN PRN Reason: Protocol Last Titration: 07/12/16 14:42 Dose: 25 mcg/kg/min Methylprednisolone 40 mg/ (Sodium Chloride) 50 mls @ 100 mls/hr IV Q12 [facility] Last Admin: 07/12/16 09:32 Dose: 100 mls/hr Ceftazidime 1 gm/ Sodium (Chloride) 100 mls @ 200 mls/hr IVPB Q8 [facility] Ipratropium [place] (Atrovent) 0.5 mg IH RQ8 [facility] Last Admin: 07/12/16 15:41 Dose: 0.5 mg Lactobacillus Acidophilus (Bacid Acidophilus) 1 cap PO BID [facility] Last Admin: 07/12/16 17:16 Dose: 1 cap Levalbuterol HCl (Xopenex) 1.25 mg INH RQ8 [facility] Last Admin: 07/12/16 15:41 Dose: 1.25 mg Loperamide HCl (Imodium) 2 mg PO QID PRN PRN Reason: Loose stools Last Admin: 07/08/16 08:57 Dose: 2 mg Methimazole (Tapazole) 5 mg PO DAILY [facility] Morphine Sulfate (Morphine) 2 mg IVP Q2 PRN PRN Reason: Pain, moderate (4-7) Last Admin: 07/12/16 18:50 Dose: 2 mg Multi-Ingredient Cream (Hydrocerin Cream) 1 applic TOP BID [facility] Last Admin: 07/12/16 17:13 Dose: 1 applic Multivitamins/Minerals (Therapeutic-M Tab) 1 tab PO DAILY [facility] Last Admin: 07/12/16 09:22 Dose: 1 tab Nitroglycerin (Nitro-Bid 2% Oint) 1 in TOP Q6 [facility] Last Admin: 07/12/16 17:14 Dose: Not Given Pantoprazole Sodium (Protonix Ec Tab) 40 mg PO DAILY [facility] Last Admin: 07/12/16 09:07 Dose: 40 mg Roflumilast (Daliresp) 500 mcg PO DAILY [facility] Last Admin: 07/12/16 09:03 Dose: 500 mcg Spironolactone (Aldactone) 25 mg PO DAILY [facility] Last Admin: 07/12/16 09:00 Dose: 25 mg Zolpidem Tartrate (Ambien) 5 mg PO HS PRN PRN Reason: Sleep Last Admin: 07/11/16 22:47 Dose: 5 mg - Labs Labs: 07/12/16 05:00 07/12/16 05:00 PT 11.2 SECONDS (9.6-11.2) 07/09/16 08:00 INR 1.08 (0.92-1.08) 07/09/16 08:00 APTT 27.7 SECONDS (23.3-32.5) 07/09/16 08:00
[2016-07-13] MEDS: Ipratropium 0.02% Inhal Soln (0.5 mg/2.5 ml) UD IH SCH ×4 (00:31→19:09)
[2016-07-13] MEDS: Levalbuterol 1.25 MG/3 ML Inhal Soln UD INH SCH ×2 (00:31→07:55)
[2016-07-13] MEDS: Acetaminophen 650mg/20.3ml solution UD PO SCH ×2 (00:35→09:02)
[2016-07-13] MEDS: DEXTROSE 5% IVPB SCH ×2 (02:15→15:34)
[2016-07-13] MEDS: SULFAMETHOXAZOLE IVPB SCH ×2 (02:15→15:34)
[2016-07-13] MEDS: WATER IVPB SCH ×2 (02:15→15:34)
[2016-07-13] MEDS: TRIMETHOPRIM IVPB SCH ×2 (02:15→15:34)
[2016-07-13 04:30] LABS: ABG ALLEN TEST YES; ABG MECHANICAL RATE 12; ARTERIAL BLOOD GAS HCO3 31.1 mmol/L (21-28); ARTERIAL BLOOD GAS MODE A/C; ARTERIAL BLOOD GAS O2 CAPACITY 12.9 mL/dL (16-24); ARTERIAL BLOOD GAS O2 CONTENT 12.8 ML/dL (15-23); ARTERIAL BLOOD GAS PH 7.38 (7.35-7.45); ARTERIAL BLOOD GAS PO2 138 mm/Hg (80-100); ARTERIAL BLOOD HGB O2 SAT 97.5 % (95.0-98.0); ATERIAL BLOOD GAS PEEP 5; CARBOXYHEMOGLOBIN 1.4 % (0.5-1.5); HHB 0.6 % (0.0-5.0); METHEMOGLOBIN 0.6 % (0.0-3.0)
[2016-07-13] MEDS: Nitroglycerin 2% 1GM UD TOP SCH ×4 (04:45→22:25)
[2016-07-13 05:17] LABS: HEMATOCRIT 28.8 % (34.0-47.0); MEAN CELL VOLUME 85.5 fl (81.0-99.0); MEAN CORPUSCULAR HEMOGLOBIN 26.7 pg (27.0-31.0); MEAN CORPUSCULAR HGB CONC 31.3 g/dL (33.0-37.0); RED CELL DISTRIBUTION WIDTH 30.3 % (11.5-14.5); WHITE BLOOD COUNT 4.1 K/uL (4.8-10.8)
[2016-07-13 05:20] LABS: BLOOD UREA NITROGEN 9 mg/dl (7-17); CALCIUM 8.4 mg/dL (8.4-10.2); CARBON DIOXIDE 32 mmol/L (22-30); CHLORIDE 95 mmol/L (98-107); GFR AFRICAN-AMERICAN > 60; GLUCOSE,RANDOM 185 mg/dL (65-105); POTASSIUM 4.3 MMOL/L (3.6-5.0); SODIUM 138 mmol/l (132-148)
--- NOTE | 2016-07-13 07:44 | CP.CCUPN ---
CCU Subjective - Physician Review Events Since Last Encounter (Free Text): 07/13/16 15:17 The Patient was seen and examined at the bedside, Medical records reviewed, all clinical/lab/hemodynamic/radiographic data were reviewed and management issues were discussed and formulated, 66 Y/O F with PMHx of HTN, History of Hyperthyroidism (on Methimazole), H/O Hypothyroidism, severe COPD, Gall Bladder Disease and bilateral breast Cancer with bone mets to shoulder (s/p humerus resection, Humeral prosthesis placement and removal) S/p chemo/XRT 8 years ago Who initially presented to the Emergency department on 06/03 with complaints of bilateral leg swelling and weakness. x2 week. 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 06/18, Patient was transferred from Telemetry unit to ICU for close monitoring due to worsening respiratory status, more dyspnea and increased work of breathing despite being started on HFNC at FIO2 of 28% oxygen and 35 LPM flow Patient initially managed with Diuresis, IV antibiotics with IV Zosyn, Zyvox ( added for VRE from facial mass), Diflucan and Meropenem 07/06, Patient went to OR, underwent drainage of right maxillary seroma Vs abscess by [facility] surgeon, She returned to ICU orally intubated, Successfully extubated 07/07 07/09, she was noted with tachypnena, using accessory muscle and desaturation, she was reintubated Patient Alert and oriented x3, Denies any facial discomfort. slightly more Comfortable now after she was switched to fentanyl, on PRVX 450/12 /40% PEEP of 5 No CP, Less SOB, no fever/chills Did not tolerate CPAP today Full vent support for tonight follow up labs, CXR, ABG CCU Objective - Vital Signs / Intake & Output Vital Signs (Last 4 hours): Vital Signs Temp Pulse Resp BP Pulse Ox 07/13/16 07:00 110 H 13 107/72 100 07/13/16 06:00 96 H 13 94/56 L 99 07/13/16 05:00 126 H 15 122/90 99 07/13/16 04:00 97.2 F L 115 H 14 100 Intake and Output (Last 8hrs): Intake & Output 07/12/16 07/13/16 07/13/16 22:59 06:59 14:59 Intake Total 2044 891 Output Total 1400 1550 Balance 644 -659 Intake: IV 34 51 Intake, Piggyback 1150 500 Tube Feeding 560 240 Free Water Flush 300 100 Output: Drainage 0 0 Right Cheek 0 0 Urine 1400 1550 Urethral (Gutierrez) 1400 1550 Other: # Bowel Movements 1 - Physical Exam Head: Positive for: Atraumatic, Swelling (of R mandible). Negative for: Ecchymosis Pupils: Positive for: PERRL. Negative for: Sluggish, Non-Reactive Extroacular Muscles: Positive for: EOMI. Negative for: Gaze Palsy, Entrapment Conjunctiva: Positive for: Normal Mouth: Positive for: Moist Mucous Membranes Pharnyx: Positive for: Normal Nose (External): Positive for: Atraumatic Nose (Internal): Positive for: Normal Inspection Neck: Positive for: Trachea Midline. Negative for: MIDLINE TENDERNESS, Paraspinal Tenderness, JVD, Lymphadenopathy, Bruit Respiratory/Chest: Positive for: Good Air Exchange, Wheezes (expiratory), Decreased Breath Sounds, Rhonchi (minimally appreciated throughout). Negative for: Respiratory Distress, Accessory Muscle Use Cardiovascular: Positive for: Regular Rate and Rhythm, Normal S1, S2, Peripheal Pulses Present, Tachycardic. Negative for: Murmurs, Irregular Rhythm Abdomen: Positive for: Normal Bowel Sounds. Negative for: Tenderness Upper Extremity: Positive for: NORMAL PULSES, Capillary Refill < 2s, Other (L arm presents w/o edema, normal pulses; Rt arm edema). Negative for: Cyanosis, Tenderness Lower Extremity: Positive for: Edema, NORMAL PULSES. Negative for: CALF TENDERNESS Neurological: Positive for: GCS=15, Other (full exam limited due to recent intubation) Skin: Positive for: Warm, Dry Psychiatric: Positive for: Alert, Oriented x 3 - Medications Active Medications: Active Medications Generic Name Dose Route Start Last Admin Trade Name Freq PRN Reason Stop Dose Admin Acetaminophen 650 mg 07/10/16 12:56 07/13/16 00:35 Tylenol 650mg/20.3ml Solution Ud PO Not Given Q8 ANDREAS Anastrozole 1 mg 07/07/16 09:00 07/12/16 09:00 Arimidex 1 Mg Tab PO 1 mg DAILY ANDREAS Administration Baclofen 10 mg 07/06/16 22:00 07/12/16 21:55 Lioresal PO 10 mg HS ANDREAS Administration Enoxaparin Sodium 40 mg 07/08/16 09:00 07/12/16 09:06 Lovenox SC 40 mg DAILY ANDREAS Administration Protocol Gabapentin 600 mg 07/06/16 17:00 07/13/16 00:32 Neurontin PO 600 mg Q8 ANDREAS Administration Fluconazole 100 mls @ 100 mls/hr 07/07/16 09:00 07/12/16 09:03 Diflucan Iv 200 Mg/100 Ml Ns IVPB 100 mls/hr DAILY ANDREAS Administration Linezolid 300 mls @ 300 mls/hr 07/06/16 21:00 07/12/16 21:00 Zyvox 600mg/300ml D5w IVPB 300 mls/hr Q12 ANDREAS Administration Trimethoprim/Sulfamethoxazole 500 mls @ 333.333 mls/hr 07/10/16 14:15 07/13/16 02:15 435 mg/ Dextrose IVPB 333.333 mls/hr Q12H ANDREAS Administration Propofol 100 mls @ 8.695 mls/hr 07/12/16 03:19 07/13/16 02:16 Diprivan IV 8.695 mls/hr .[id number] ANDREAS Administration Protocol 25 MCG/KG/MIN Methylprednisolone 40 mg/ 50 mls @ 100 mls/hr 07/12/16 09:00 07/12/16 21:56 Sodium Chloride IV 100 mls/hr Q12 ANDREAS Administration Ceftazidime 1 gm/ Sodium 100 mls @ 200 mls/hr 07/13/16 01:00 07/13/16 00:31 Chloride IVPB 200 mls/hr Q8 ANDREAS Administration Ipratropium [place] 0.5 mg 07/09/16 16:00 07/13/16 00:31 Atrovent IH 0.5 mg RQ8 ANDREAS Administration Lactobacillus Acidophilus 1 cap 07/06/16 17:00 07/12/16 17:16 Bacid Acidophilus PO 1 cap BID ANDREAS Administration Levalbuterol HCl 1.25 mg 07/09/16 16:00 07/13/16 00:31 Xopenex INH 1.25 mg RQ8 ANDREAS Administration Loperamide HCl 2 mg 07/06/16 11:55 07/08/16 08:57 Imodium PO 2 mg QID PRN Administration Loose stools Methimazole 5 mg 07/14/16 09:00 Tapazole PO DAILY ANDREAS Morphine Sulfate 2 mg 07/12/16 08:54 07/13/16 04:35 Morphine IVP 2 mg Q2 PRN Administration Pain, moderate (4-7) Multi-Ingredient Cream 1 applic 07/06/16 17:00 07/12/16 17:13 Hydrocerin Cream TOP 1 applic BID ANDREAS Administration Multivitamins/Minerals 1 tab 07/07/16 09:00 07/12/16 09:22 Therapeutic-M Tab PO 1 tab DAILY ANDREAS Administration Nitroglycerin 1 in 07/06/16 16:00 07/13/16 04:45 Nitro-Bid 2% Oint TOP 1 in Q6 ANDREAS Administration Pantoprazole Sodium 40 mg 07/07/16 09:00 07/12/16 09:07 Protonix Ec Tab PO 40 mg DAILY ANDREAS Administration Roflumilast 500 mcg 07/07/16 09:00 07/12/16 09:03 Daliresp PO 500 mcg DAILY ANDREAS Administration Spironolactone 25 mg 07/07/16 09:00 07/12/16 09:00 Aldactone PO 25 mg DAILY ANDREAS Administration Zolpidem Tartrate 5 mg 07/06/16 11:55 07/11/16 22:47 Ambien PO 5 mg HS PRN Administration Sleep - Patient Studies Lab Studies: Microbiology Studies 07/07/16 10:17 Bronchial Culture - Final Bronchial Washings Stenotrophomonas Maltophilia Lab Studies 07/13/16 07/13/16 07/12/16 Range/Units 04:20 04:15 05:00 WBC 4.1 L (4.8-10.8) K/uL RBC 3.37 L (3.80-5.20) Mil/uL Hgb 9.0 L (12.0-16.0) g/dL Hct 28.8 L (34.0-47.0) % MCV 85.5 (81.0-99.0) fl MCH 26.7 L (27.0-31.0) pg MCHC 31.3 L (33.0-37.0) g/dL RDW 30.3 H (11.5-14.5) % Plt Count 120 L (130-400) K/uL Neutrophils % (Manual) 86 H (42-75) % Band Neutrophils % 2 (0-2) % Lymphocytes % (Manual) 5 L (20-50) % Reactive Lymphs % 1 H (0-0) % Monocytes % (Manual) 5 (0-10) % Basophils % (Manual) 1 (0-2) % Toxic Granulation Present Platelet Estimate Decreased L (NORMAL) Large Platelets Present Hypochromasia (manual) Moderate Poikilocytosis (manual Slight Anisocytosis (manual) Marked Tear Drop Cells Slight Ovalocytes Slight Schistocytes Slight pCO2 58 H (35-45) mm/Hg pO2 138 H (80-100) mm/Hg HCO3 31.1 H (21-28) mmol/L ABG pH 7.38 (7.35-7.45) ABG Total CO2 36.1 H (22-28) mmol/L ABG O2 Saturation 99.4 H (95-98) % ABG O2 Content 12.8 L (15-23) ML/dL ABG Base Excess 7.9 H (-2.0-3.0) mmol/L ABG Hemoglobin 9.1 L (11.7-17.4) g/dL ABG Carboxyhemoglobin 1.4 (0.5-1.5) % POC ABG HHb (Measured) 0.6 (0.0-5.0) % ABG Methemoglobin 0.6 (0.0-3.0) % ABG O2 Capacity 12.9 L (16-24) mL/dL Tawanda Test Yes A-a O2 Difference 75.0 mm/Hg Hgb O2 Saturation 97.5 (95.0-98.0) % Vent Mode A/c Mechanical Rate 12 FiO2 40.0 % Tidal Volume 450 PEEP 5 Sodium 138 (132-148) mmol/l Potassium 4.3 (3.6-5.0) MMOL/L Chloride 95 L (98-107) mmol/L Carbon Dioxide 32 H (22-30) mmol/L Anion Gap 15 (10-20) BUN 9 (7-17) mg/dl Creatinine 0.3 L (0.7-1.2) mg/dL Est GFR ( Amer) > 60 Est GFR (Non-Af Amer) > 60 Random Glucose 185 H (65-105) mg/dL Calcium 8.4 (8.4-10.2) mg/dL Laboratory Results - last 24 hr 07/12/16 07/13/16 07/13/16 05:00 04:15 04:20 WBC 4.1 L RBC 3.37 L Hgb 9.0 L Hct 28.8 L MCV 85.5 MCH 26.7 L MCHC 31.3 L RDW 30.3 H Plt Count 120 L Neutrophils % (Manual) 86 H Band Neutrophils % 2 Lymphocytes % (Manual) 5 L Reactive Lymphs % 1 H Monocytes % (Manual) 5 Basophils % (Manual) 1 Toxic Granulation Present Platelet Estimate Decreased L Large Platelets Present Hypochromasia (manual) Moderate Poikilocytosis (manual Slight Anisocytosis (manual) Marked Tear Drop Cells Slight Ovalocytes Slight Schistocytes Slight pCO2 58 H pO2 138 H HCO3 31.1 H ABG pH 7.38 ABG Total CO2 36.1 H ABG O2 Saturation 99.4 H ABG O2 Content 12.8 L ABG Base Excess 7.9 H ABG Hemoglobin 9.1 L ABG Carboxyhemoglobin 1.4 POC ABG HHb (Measured) 0.6 ABG Methemoglobin 0.6 ABG O2 Capacity 12.9 L Tawanda Test Yes A-a O2 Difference 75.0 Hgb O2 Saturation 97.5 Vent Mode A/c Mechanical Rate 12 FiO2 40.0 Tidal Volume 450 PEEP 5 Sodium 138 Potassium 4.3 Chloride 95 L Carbon Dioxide 32 H Anion Gap 15 BUN 9 Creatinine 0.3 L Est GFR ( Amer) > 60 Est GFR (Non-Af Amer) > 60 Random Glucose 185 H Calcium 8.4 Assessment/Plan (1) Acute and chronic respiratory failure with hypercapnia Current Visit: Yes Status: Acute Comment: Continue Duonebs, VEnt support, Theophylline, Diuresis IV antibiotics (2) Acute exacerbation of CHF (congestive heart failure) Current Visit: Yes Status: Acute Comment: Echo 06/14: The systolic function is moderately impaired, EF 40-45 % and dilated RV with mild/mod deccrease RV function, diastolic inflow pattern is restrictive Diuresis, strict I&Os, daily Wt (3) Acute bronchitis with chronic obstructive pulmonary disease (COPD) Current Visit: Yes Status: Acute Priority: High Comment: Respiratory distress w ST 140s and O2% in 70s led to intubation this morning -PRVC AC: RR 16, TV 400, PEEP 5, FIO2 50% -earlier, she had presented w rhonchi throughout and mild/mod expiratory wheezes Methylprednisone IV 40 mg Q 12H f/u final results of bronchial washing (4) Osteomyelitis of mandible Current Visit: Yes Status: Acute Comment: Continue IV antibiotics as per ID Pain control with Percocet (5) Hx of breast cancer Current Visit: No Status: Chronic Priority: Low Comment: S/p bilateral mastectomy Continue Arimidex 1mg PO daily
--- NOTE | 2016-07-13 07:48 | CP.PCM.PN ---
Subjective - Date & Time of Evaluation Date of Evaluation: 07/13/16 Time of Evaluation: 10:00 - Subjective Subjective: Patient was seen and examined bedside. Chronically ill female , intubated on MV PRVC/ Ac mode12/450/5/40 % , not sedated , awake, alert and oriented. Patient appears to very anxious , asking for ET tube removal and Xanax She is tachycardic on monitor ranging from 110--140 with good O2sat 96 % ABG 58/138/31/7.3 Off propofol drip and started on Fentanyl drip for [place] control BP 107/72 WBC 4 k Hgb 9 Plt [address] with good urine output I/O 3020/[address] with Jevity @ 49 ml/hr Objective - Vital Signs/Intake and Output Vital Signs (last 24 hours): Temp Pulse Resp BP Pulse Ox 97.2 F L 110 H 13 107/72 100 07/13/16 04:00 07/13/16 07:00 07/13/16 07:00 07/13/16 07:00 07/13/16 07:00 Intake and Output: 07/13/16 07/13/16 06:59 18:59 Intake Total 1435 Output Total 1550 Balance -115 - Medications Medications: Current Medications Acetaminophen (Tylenol 650mg/20.3ml Solution Ud) 650 mg PO Q8 [facility] Last Admin: 07/13/16 00:35 Dose: Not Given Anastrozole (Arimidex 1 Mg Tab) 1 mg PO DAILY [facility] Last Admin: 07/12/16 09:00 Dose: 1 mg Baclofen (Lioresal) 10 mg PO HS [facility] Last Admin: 07/12/16 21:55 Dose: 10 mg Enoxaparin Sodium (Lovenox) 40 mg SC DAILY [facility] PRN Reason: Protocol Last Admin: 07/12/16 09:06 Dose: 40 mg Gabapentin (Neurontin) 600 mg PO Q8 [facility] Last Admin: 07/13/16 00:32 Dose: 600 mg Fluconazole (Diflucan Iv 200 Mg/100 Ml Ns) 100 mls @ 100 mls/hr IVPB DAILY [facility] Last Admin: 07/12/16 09:03 Dose: 100 mls/hr Linezolid (Zyvox 600mg/300ml D5w) 300 mls @ 300 mls/hr IVPB Q12 [facility] Last Admin: 07/12/16 21:00 Dose: 300 mls/hr Trimethoprim/Sulfamethoxazole (435 mg/ Dextrose) 500 mls @ 333.333 mls/hr IVPB Q12H [facility] Last Admin: 07/13/16 02:15 Dose: 333.333 mls/hr Propofol (Diprivan) 100 mls @ 8.695 mls/hr IV .[id number] ANDREAS; 25 MCG/KG/MIN PRN Reason: Protocol Last Admin: 07/13/16 02:16 Dose: 8.695 mls/hr Methylprednisolone 40 mg/ (Sodium Chloride) 50 mls @ 100 mls/hr IV Q12 [facility] Last Admin: 07/12/16 21:56 Dose: 100 mls/hr Ceftazidime 1 gm/ Sodium (Chloride) 100 mls @ 200 mls/hr IVPB Q8 [facility] Last Admin: 07/13/16 00:31 Dose: 200 mls/hr Ipratropium [place] (Atrovent) 0.5 mg IH RQ8 [facility] Last Admin: 07/13/16 00:31 Dose: 0.5 mg Lactobacillus Acidophilus (Bacid Acidophilus) 1 cap PO BID [facility] Last Admin: 07/12/16 17:16 Dose: 1 cap Levalbuterol HCl (Xopenex) 1.25 mg INH RQ8 [facility] Last Admin: 07/13/16 00:31 Dose: 1.25 mg Loperamide HCl (Imodium) 2 mg PO QID PRN PRN Reason: Loose stools Last Admin: 07/08/16 08:57 Dose: 2 mg Methimazole (Tapazole) 5 mg PO DAILY [facility] Morphine Sulfate (Morphine) 2 mg IVP Q2 PRN PRN Reason: Pain, moderate (4-7) Last Admin: 07/13/16 04:35 Dose: 2 mg Multi-Ingredient Cream (Hydrocerin Cream) 1 applic TOP BID [facility] Last Admin: 07/12/16 17:13 Dose: 1 applic Multivitamins/Minerals (Therapeutic-M Tab) 1 tab PO DAILY [facility] Last Admin: 07/12/16 09:22 Dose: 1 tab Nitroglycerin (Nitro-Bid 2% Oint) 1 in TOP Q6 [facility] Last Admin: 07/13/16 04:45 Dose: 1 in Pantoprazole Sodium (Protonix Ec Tab) 40 mg PO DAILY [facility] Last Admin: 07/12/16 09:07 Dose: 40 mg Roflumilast (Daliresp) 500 mcg PO DAILY [facility] Last Admin: 07/12/16 09:03 Dose: 500 mcg Spironolactone (Aldactone) 25 mg PO DAILY [facility] Last Admin: 07/12/16 09:00 Dose: 25 mg Zolpidem Tartrate (Ambien) 5 mg PO HS PRN PRN Reason: Sleep Last Admin: 07/11/16 22:47 Dose: 5 mg - Labs Labs: 07/13/16 04:20 07/13/16 04:20 PT 11.2 SECONDS (9.6-11.2) 07/09/16 08:00 INR 1.08 (0.92-1.08) 07/09/16 08:00 APTT 27.7 SECONDS (23.3-32.5) 07/09/16 08:00 - Constitutional Appears: In Acute Distress (dyspneic and tachycardic ), Agitated, Chronically Ill, Other (intubated on MV , not sedated AAOx3 ,anxious ) - Head Exam Head Exam: NORMAL INSPECTION, NORMOCEPHALIC Additional comments: right facial swelling better with ginger drain in place with no drainage - Eye Exam Eye Exam: EOMI, Normal appearance, PERRL Pupil Exam: NORMAL ACCOMODATION - ENT Exam ENT Exam: Mucous Membranes Dry (thick secretion suctioned from oral mucosa) - Neck Exam Neck Exam: Normal Inspection - Respiratory Exam Respiratory Exam: Accessory Muscle Use, Decreased Breath Sounds (bibasilar ), Prolonged Expiratory Phase, Rhonchi, Respiratory Distress. absent: Wheezes - Cardiovascular Exam Cardiovascular Exam: Tachycardia - GI/Abdominal Exam GI & Abdominal Exam: Soft, Normal Bowel Sounds. absent: Distended, Guarding, Tenderness, Rebound - Rectal Exam Rectal Exam: Deferred - Extremities Exam Extremities Exam: Pedal Edema (bilateral LE 3 + to both feet, RUE lympedema, ) Additional comments: pulses present - Neurological Exam Neurological Exam: Alert, Awake, CN II-XII Intact, Oriented x3 Additional comments: anxious - Psychiatric Exam Psychiatric exam: Anxious - Skin Skin Exam: Dry, Pallor, Warm Additional comments: mutiple echymotic areas to left upper chest wall and LUE Assessment and Plan - Assessment and Plan (Free Text) Assessment: 66 y/o female PMH COPD, bilateral breast CA s/p chemo and radiation 8 years ago , HTN, Hyperthyroidism presented with 2 week history of worsening bilateral lower extremity swelling and weakness, unable to get herself up to her walker. Patient has mild dyspnea at baseline. She also came with a large right facial swelling for almost 2 weeks and was taking PO antibiotics prescribed by her dentist. Patient was admitted for generalized weakness , Hyponatremia and Facial abscess. She was started on IV antibiotics for facial abscess and Lasix IV with fluid restriction for LE edema. Maxillofacial Ct showed possible abscess accumulation. Evaluated by Oromaxillofacial surgeon and underwent Incision and drainage of abscess. Bone scan showed possible osteomyelitis . ID recommends 4-6 wks IV abx treatment. During this hospitalization noted to have increased dyspnea at rest and more so with minimal activity, decreased air entry bilaterally and increased work of breathing. She was started on high flow O2, Higher doses of theophylline and IV hydrocortisone. CTA chest and LE doppler showed no DVT , except right cephallic cherelle thrombosis . She was transferred to ICU for close monitoring for tachypnea and tachycardia. She underwent IR drainage on 06/24 of right facial abscess due to re accumulation and cultures came positive for VRE and bria. Antibiotics were changed to Zyvox , Meropenem and Fluconazone. Despite drainage and IV antibiotics she still kept complaining of pain to right supramandibular area with increased swelling. Repeat CT showed abscess formation. Patient underwent I&D in OR 07/06/16 with ginger drainage placement. She continues to have episodes of resp distress - tachypneic , tachycardic , with chest congestion , unable to expectorate despite high flow O2 therapy, Duonebs and Corticosteroids. Theophylline discontinued and Daliresp started. 07/07/16 underwent Bronchoscopy while still intubated post maxillofacial abscess I&D with BAL showed Stenotrophomonas Maltophilia. Antibiotics changed to IV bactrim, Levaquin , Zyvox and Fluconazole. On 07/09 she developed severe respiratory distress with hypoxemia requiring intubation. At present still on MV PRVC/ AC mode , unable to wean off due to high levels of anxiety . Started on fentanyl drip for sedation 1. Acute on Chronic Respiratory Failure with hypercapnea [facility] unable to wean off vent due to high levels of anxiety CXR showed improved air entry bilateral and ABG 58/138/31/7.3 Pulmonary on board following patient s/p bronchoscopy 07/07/16 with BAL gowing Stenotrophomonas maltophilla. Continue bactrim, levaquine, diflucan and zyvox as per ID on Methylprednisone 40 mg Iv q12 Xopenex, albuterol and tiotropium inhaler Started Fentanyl drip for sedation and pain weaning trials daily as tolerated guarded prognosis 2. Chest Pain , prob sec to Anxiety, ACS ruled out with recurrent pressure like chest pain on and off cardiology consuled Dr. Luu Trop -- negative and EKG showed no ST-T wave changes Most likely atypical chest pain related to anxiety , hypokalemia and COPD. There is no signs of ischemia 3. Facial abscess with mandibular Osteomyelitis s/p drainage of abscess with penreose drain placement s/p Incision and drainage on 06/[address] Anderson maxillofacial surgeon and rpt I&D 07/06 , now with Ginger drain placed pathology report showed inflammatory cells, no malignancy Nuclear Bone Scan suggestive of osteomyelitis initial cultures were with no growth so was started on Zosyn ,and Clindamycin IV ID consult with Dr Obrien appreciated .Recommended IV abx 6 wks total ( has been on antibiotics for 5 weeks) Tunneled central line placed for ferry terminal agent IV antibiotics- this will need to be d/c by IR after IV abx treatment is completed ( as discussed with Dr Gunter - pt was informed of need to see IR after abx tx) Due to increased swelling and pain patient underwent drainage of facial collection by IR on 06/24 and 24 ml yellow fluid obtained. Cultures reported as VRE and Bria [place] drain placed on 07/06 ( still in place with minimal drainage) continue Zyvox , Bactrim, Fotaz and Fluconazole ENT consulted , Dr Priest 4. Bilateral LE edema sec to CHF exacerbation with diastolic dysfxn Echo showed EF 40-45 % and dilated RV continue fluid restriction Promote ambulation once better 5. Hypokalemia multifactorial diuretic induced , Albuterol, Hypothyroidism and GI loss off Lasix Continue KCl runs and PO replacement as needed Nephro consult appreciated CT of abd showed no adrenal mass on Aldactone 6 .Hyponatremia, resolved most likely secondary to solute depletion and infection Continue fluid restriction 7.Hx breast ca, bilateral stable, s/p bilateral mastectomy continue Arimidex 8. Tachycardia -- multifactorial Hx of HTN was on verapamil at home ( 80mg tid) but decreased dose due to low BP and now discontinued as may contribute to leg edema continue monitoring patient with high levels of anxiety Started Fentanyl drip for pain control and sedation 9. Hypothyroidism/ Hyperthyroidism patient has history of hyperthyroidism , was on Methimazole and noticed to had developed hypothyroidism so Methimazole was d/c and she was started on Po levothyroxine this admission , TSH then went down and Metrhimazole restarted Methimazole 5 mg po daily restarted as discussed with Dr Vu 10. Anemia, chronic dis monitor anemia work up showed depleted iron stores Venofer IV given s/p 2 units PRBC transfusion 11. Right cephalic vein thrombosis ( superficial vein) no need for therapeutic anticoag 12.DVT ppx on lovenox
--- NOTE | 2016-07-13 08:40 | RAD ---
HISTORY: resp failure COMPARISON: 07/12/2016 FINDINGS: LUNGS: Central lines and tubes remain in satisfactory position. There is minimal bibasilar atelectasis. The lungs are otherwise clear PLEURA: No significant pleural effusion identified, no pneumothorax apparent. CARDIOVASCULAR: Normal. OSSEOUS STRUCTURES: No significant abnormalities. VISUALIZED UPPER ABDOMEN: Normal. OTHER FINDINGS: None. IMPRESSION: No active disease.
[2016-07-13] MEDS: Fluconazole IV 200mg/100 ml NS 100 ML IVPB SCH (08:54)
[2016-07-13] MEDS: Hydrocerin CREAM TOP SCH ×2 (08:55→16:05)
[2016-07-13] MEDS: Enoxaparin 40 mg Syringe SC SCH (08:56)
[2016-07-13] MEDS: Pantoprazole 40 mg EC Tab PO SCH (08:57)
[2016-07-13] MEDS: methylPREDNISolone 40 MG in Sodium Chloride 0.9% 50 ML IV SCH ×2 (08:57→21:30)
[2016-07-13] MEDS: Multivitamin With Minerals Tab PO SCH (08:58)
[2016-07-13] MEDS: Linezolid 600 mg in D5W 300 ml 300 ML IVPB SCH ×2 (08:59→22:00)
[2016-07-13] MEDS: Lactobacillus Acidophilus 500 MU Cap PO SCH ×2 (09:01→16:07)
--- NOTE | 2016-07-13 09:18 | CP.PCM.PN ---
Subjective - Date & Time of Evaluation Date of Evaluation: 07/13/16 Time of Evaluation: 09:12 - Subjective Subjective: Interim events reviewed. Labs and chest x-ray reviewed. Discussed with nursing at the bedside. Patient is awake and alert. Appears anxious. Adequate oxygenation, mild tachycardia, afebrile. No complaint of pain in LE's this morning. Minimal secretions when suctioned. Dependant edema still ++. No cyanosis. Facial swelling has decreased significantly. Buccal drains are still in place with scant bloody drainage. Neck is supple and trachea midline. No dullness to percussion of the anterior chest wall. No subcutaneous emphysema palpated. Breath sounds are very diminished bilaterally. E phase still mildly prolonged w/o audible wheezing. Dependant medium rales and rhonchi bilaterally, few, improved from previous. PAP 23cm, plateau 16cm, RR 12/14BPM, Vt .40, FiO2 40. Will query OMF surgery regarding continued need for drains. Continue present multi-antibiotic regimen. Would like to begin weaning, but she is still very anxious and tends to breathe rapidly. She has now been on IV antibiotics for 5 weeks. May consider changing anxiolytic to dexmedetomidine (will discuss with ornamental bronze worker). Objective - Vital Signs/Intake and Output Vital Signs (last 24 hours): Temp Pulse Resp BP Pulse Ox 98.3 F 108 H 12 121/62 98 07/13/16 08:00 07/13/16 08:00 07/13/16 08:00 07/13/16 08:00 07/13/16 08:00 Intake and Output: 07/12/16 07/13/16 23:59 11:59 Intake Total 2044 891 Output Total 1400 1550 Balance 644 -659 - Medications Medications: Current Medications Albuterol Sulfate (Albuterol 0.083% Inhal Aby (2.5 Mg/3 Ml) Ud) 2.5 mg INH RQ6 [facility]RE[facility] Anastrozole (Arimidex 1 Mg Tab) 1 mg PO DAILY [facility] Last Admin: 07/13/16 08:52 Dose: 1 mg Enoxaparin Sodium (Lovenox) 40 mg SC DAILY [facility] PRN Reason: Protocol Last Admin: 07/13/16 08:56 Dose: 40 mg Gabapentin (Neurontin) 600 mg PO Q8 [facility] Last Admin: 07/13/16 08:56 Dose: 600 mg Fluconazole (Diflucan Iv 200 Mg/100 Ml Ns) 100 mls @ 100 mls/hr IVPB DAILY [facility] Last Admin: 07/13/16 08:54 Dose: 100 mls/hr Linezolid (Zyvox 600mg/300ml D5w) 300 mls @ 300 mls/hr IVPB Q12 [facility] Last Admin: 07/13/16 08:59 Dose: 300 mls/hr Trimethoprim/Sulfamethoxazole (435 mg/ Dextrose) 500 mls @ 333.333 mls/hr IVPB Q12H [facility] Last Admin: 07/13/16 02:15 Dose: 333.333 mls/hr Propofol (Diprivan) 100 mls @ 8.695 mls/hr IV .[id number] ANDREAS; 25 MCG/KG/MIN PRN Reason: Protocol Last Admin: 07/13/16 02:16 Dose: 8.695 mls/hr Methylprednisolone 40 mg/ (Sodium Chloride) 50 mls @ 100 mls/hr IV Q12 [facility] Last Admin: 07/13/16 08:57 Dose: 100 mls/hr Ceftazidime 1 gm/ Sodium (Chloride) 100 mls @ 200 mls/hr IVPB Q8 [facility] Last Admin: 07/13/16 08:54 Dose: 200 mls/hr Ipratropium [place] (Atrovent) 0.5 mg IH RQ6 [facility] Lactobacillus Acidophilus (Bacid Acidophilus) 1 cap PO BID [facility] Last Admin: 07/13/16 09:01 Dose: 1 cap Methimazole (Tapazole) 5 mg PO DAILY [facility] Morphine Sulfate (Morphine) 2 mg IVP Q2 PRN PRN Reason: Pain, moderate (4-7) Last Admin: 07/13/16 09:04 Dose: 2 mg Multi-Ingredient Cream (Hydrocerin Cream) 1 applic TOP BID [facility] Last Admin: 07/13/16 08:55 Dose: 1 applic Nitroglycerin (Nitro-Bid 2% Oint) 1 in TOP Q6 [facility] Last Admin: 07/13/16 09:02 Dose: 1 in Pantoprazole Sodium (Protonix Ec Tab) 40 mg PO DAILY [facility] Last Admin: 07/13/16 08:57 Dose: 40 mg Spironolactone (Aldactone) 25 mg PO DAILY [facility] Last Admin: 07/13/16 08:52 Dose: 25 mg Zolpidem Tartrate (Ambien) 5 mg PO HS PRN PRN Reason: Sleep Last Admin: 07/11/16 22:47 Dose: 5 mg - Labs Labs: 07/13/16 04:20 07/13/16 04:20 PT 11.2 SECONDS (9.6-11.2) 07/09/16 08:00 INR 1.08 (0.92-1.08) 07/09/16 08:00 APTT 27.7 SECONDS (23.3-32.5) 07/09/16 08:00 Assessment and Plan (1) Acute bronchitis with chronic obstructive pulmonary disease (COPD) Status: Acute (2) Hyperthyroidism Status: Chronic (3) Abscess Status: Acute (4) Hypokalemia Status: Acute
[2016-07-13] MEDS: Fentanyl Citrate 2,500 MCG in Dextrose 5% In Water 200 ML IV SCH (10:20)
[2016-07-13] MEDS: Albuterol 0.083% Inhal Sol (2.5 mg/3 mL) UD INH SCH ×2 (13:39→19:09)
--- NOTE | 2016-07-13 18:08 | PN ---
DATE: 07/11/2016 ICU ROOM 434 This is a 66-year-old female with recent acute exacerbation of COPD, and currently still on IV steroi d therapy as given, and also had supervening congestive heart failure, and is being followed closely here in the ICU for hemodynamic monitoring. She also has been followed from the endocrine viewpoint for management of hyperthyroidism, and her latest thyroid study showed a T4 of 4.77, with a free T4 o f 0.79, and a TSH of 3.42. So at this time, because of the presence of subclinical hypothyroidism, then will lower down her Tapa zole to 5 mg once daily in the evening as given. Will titrate incrementally as indicated to optimize metabolic control. Will also obtain serial thyroid studies and adjust her dose regimen accordingly. Will follow. Polly Vu MD cc: [id number] TT: 07/13/2016 18:07:08 Confirmation # [id number] Dictation # [id number]
[2016-07-14] MEDS: Ipratropium 0.02% Inhal Soln (0.5 mg/2.5 ml) UD IH SCH ×4 (01:02→20:18)
[2016-07-14] MEDS: Albuterol 0.083% Inhal Sol (2.5 mg/3 mL) UD INH SCH ×4 (01:02→20:18)
[2016-07-14] MEDS: TRIMETHOPRIM IVPB SCH ×2 (01:44→18:07)
[2016-07-14] MEDS: DEXTROSE 5% IVPB SCH ×2 (01:44→18:07)
[2016-07-14] MEDS: WATER IVPB SCH ×2 (01:44→18:07)
[2016-07-14] MEDS: SULFAMETHOXAZOLE IVPB SCH ×2 (01:44→18:07)
[2016-07-14] MEDS: Nitroglycerin 2% 1GM UD TOP SCH ×4 (04:20→22:00)
[2016-07-14 05:06] LABS: ABG ALLEN TEST YES; ARTERIAL BLOOD GAS HCO3 32.9 mmol/L (21-28); ARTERIAL BLOOD GAS MODE CPAP; ARTERIAL BLOOD GAS O2 CAPACITY 12.5 mL/dL (16-24); ARTERIAL BLOOD GAS O2 CONTENT 12.4 ML/dL (15-23); ARTERIAL BLOOD GAS PO2 125 mm/Hg (80-100); ARTERIAL BLOOD HGB O2 SAT 97.4 % (95.0-98.0); ATERIAL BLOOD GAS PEEP 5; CARBOXYHEMOGLOBIN 1.4 % (0.5-1.5); HHB 0.6 % (0.0-5.0); METHEMOGLOBIN 0.6 % (0.0-3.0)
[2016-07-14 05:22] LABS: MEAN CELL VOLUME 86.2 fl (81.0-99.0); MEAN CORPUSCULAR HEMOGLOBIN 26.3 pg (27.0-31.0); MEAN CORPUSCULAR HGB CONC 30.5 g/dL (33.0-37.0); RED CELL DISTRIBUTION WIDTH 29.7 % (11.5-14.5); WHITE BLOOD COUNT 5.9 K/uL (4.8-10.8)
[2016-07-14 05:34] LABS: BLOOD UREA NITROGEN 11 mg/dl (7-17); CALCIUM 8.3 mg/dL (8.4-10.2); CARBON DIOXIDE 31 mmol/L (22-30); CHLORIDE 93 mmol/L (98-107); GFR AFRICAN-AMERICAN > 60; GLUCOSE,RANDOM 93 mg/dL (65-105); SODIUM 129 mmol/l (132-148)
[2016-07-14 05:35] LABS: POTASSIUM 5.1 MMOL/L (3.6-5.0)
[2016-07-14] MEDS: Fentanyl Citrate 2,500 MCG in Dextrose 5% In Water 200 ML IV SCH (06:53)
--- NOTE | 2016-07-14 08:04 | CP.CCUPN ---
<StevenmanuelitoHeladio T - Last Filed: 07/14/16 09:34> CCU Subjective - Physician Review Subjective (Free Text): Pt is seen and examined at bedside while intubated in the ICU. She did not have any acute events or problems overnight and denies any feelings of SOB, nor did she appear to have any difficulties breathing. Pt has been on Fentanyl drip over previous day in order to control pain and discomfort, and she has tolerated intubation well. She is currently intubated, but she had denied f/c/n/ v/d/c, chest pain, abdominal pain, or myalgias. CCU Objective - Vital Signs / Intake & Output Vital Signs (Last 4 hours): Vital Signs Pulse Resp BP Pulse Ox 07/14/16 07:54 100 07/14/16 06:58 89 8 L 95/63 L 100 07/14/16 06:00 91 H 9 L 94/64 L 100 07/14/16 05:00 100 H 11 L 102/62 100 Intake and Output (Last 8hrs): Intake & Output 07/13/16 07/14/16 07/14/16 22:59 06:59 14:59 Intake Total 629 1365 Output Total 875 987 Balance -246 378 Weight 127 lb Intake: IV 49 195 Intake, Piggyback 60 810 Tube Feeding 320 160 Free Water Flush 200 200 Output: Gastric Amount 185 Stomach 185 Drainage 2 Right Cheek 2 Urine 875 800 Urethral (Gutierrez) 875 800 Other: # Bowel Movements 1 - Physical Exam Head: Positive for: Atraumatic, Swelling (R mandible, improving). Negative for : Ecchymosis Pupils: Positive for: PERRL. Negative for: Sluggish, Non-Reactive Extroacular Muscles: Positive for: EOMI. Negative for: Gaze Palsy, Entrapment Conjunctiva: Positive for: Normal Mouth: Positive for: Moist Mucous Membranes Pharnyx: Positive for: Normal Neck: Positive for: Trachea Midline. Negative for: MIDLINE TENDERNESS, Paraspinal Tenderness, JVD, Lymphadenopathy, Bruit Respiratory/Chest: Positive for: Good Air Exchange, Wheezes (mild expiratory), Decreased Breath Sounds, Rhonchi (minimally appreciated lower lobes). Negative for: Respiratory Distress, Accessory Muscle Use Cardiovascular: Positive for: Regular Rate and Rhythm, Normal S1, S2, Peripheal Pulses Present, Tachycardic. Negative for: Murmurs, Irregular Rhythm Abdomen: Positive for: Normal Bowel Sounds. Negative for: Tenderness Upper Extremity: Positive for: NORMAL PULSES, Capillary Refill < 2s, Other (L arm presents w/o edema, normal pulses; Rt arm edema). Negative for: Cyanosis, Tenderness Lower Extremity: Positive for: Edema, NORMAL PULSES. Negative for: CALF TENDERNESS Neurological: Positive for: GCS=15, Other (full exam limited due to recent intubation) Skin: Positive for: Warm, Dry, Normal Color - Medications Active Medications: Active Medications Generic Name Dose Route Start Last Admin Trade Name Freq PRN Reason Stop Dose Admin Albuterol Sulfate 2.5 mg 07/13/16 14:00 07/14/16 01:02 Albuterol 0.083% Inhal Aby (2.5 Mg/3 Ml) Ud INH 2.5 mg RQ6 ANDRE[facility] Administration Anastrozole 1 mg 07/07/16 09:00 07/13/16 08:52 Arimidex 1 Mg Tab PO 1 mg DAILY [facility] Administration Gabapentin 600 mg 07/06/16 17:00 07/14/16 00:41 Neurontin PO 600 mg Q8 [facility] Administration Fluconazole 100 mls @ 100 mls/hr 07/07/16 09:00 07/13/16 08:54 Diflucan Iv 200 Mg/100 Ml Ns IVPB 100 mls/hr DAILY [facility] Administration Linezolid 300 mls @ 300 mls/hr 07/06/16 21:00 07/13/16 22:00 Zyvox 600mg/300ml D5w IVPB 300 mls/hr Q12 [facility] Administration Trimethoprim/Sulfamethoxazole 500 mls @ 333.333 mls/hr 07/10/16 14:15 07/14/16 01:44 435 mg/ Dextrose IVPB 333.333 mls/hr Q12H [facility] Administration Methylprednisolone 40 mg/ 50 mls @ 100 mls/hr 07/12/16 09:00 07/13/16 21:30 Sodium Chloride IV 100 mls/hr Q12 [facility] Administration Ceftazidime 1 gm/ Sodium 100 mls @ 200 mls/hr 07/13/16 01:00 07/14/16 00:41 Chloride IVPB 200 mls/hr Q8 [facility] Administration Fentanyl Citrate 2,500 mcg/ 250 mls @ 5.76 mls/hr 07/13/16 10:00 07/14/16 06:53 Dextrose IV 11.6 mls/hr .Q24H [facility] Administration Protocol 1 MCG/KG/HR Ipratropium [place] 0.5 mg 07/13/16 14:00 07/14/16 01:02 Atrovent IH 0.5 mg RQ6 [facility] Administration Lactobacillus Acidophilus 1 cap 07/06/16 17:00 07/13/16 16:07 Bacid Acidophilus PO 1 cap BID [facility] Administration Lorazepam 1 mg 07/13/16 19:32 07/13/16 22:19 Ativan IVP 1 mg Q4 PRN Administration Anxiety Methimazole 5 mg 07/14/16 09:00 Tapazole PO DAILY [facility] Morphine Sulfate 2 mg 07/12/16 08:54 07/13/16 11:19 Morphine IVP 2 mg Q2 PRN Administration Pain, moderate (4-7) Multi-Ingredient Cream 1 applic 07/06/16 17:00 07/13/16 16:05 Hydrocerin Cream TOP 1 applic BID [facility] Administration Nitroglycerin 1 in 07/06/16 16:00 07/14/16 04:20 Nitro-Bid 2% Oint TOP 1 in Q6 [facility] Administration Pantoprazole Sodium 40 mg 07/07/16 09:00 07/13/16 08:57 Protonix Ec Tab PO 40 mg DAILY [facility] Administration Spironolactone 25 mg 07/07/16 09:00 07/13/16 08:52 Aldactone PO 25 mg DAILY [facility] Administration Zolpidem Tartrate 5 mg 07/06/16 11:55 07/11/16 22:47 Ambien PO 5 mg HS PRN Administration Sleep - Patient Studies Lab Studies: Lab Studies 07/14/16 07/14/16 Range/Units 04:50 04:46 WBC 5.9 (4.8-10.8) K/uL RBC 3.24 L (3.80-5.20) Mil/uL Hgb 8.5 L (12.0-16.0) g/dL Hct 28.0 L (34.0-47.0) % MCV 86.2 (81.0-99.0) fl MCH 26.3 L (27.0-31.0) pg MCHC 30.5 L (33.0-37.0) g/dL RDW 29.7 H (11.5-14.5) % Plt Count 128 L (130-400) K/uL pCO2 59 H (35-45) mm/Hg pO2 125 H (80-100) mm/Hg HCO3 32.9 H (21-28) mmol/L ABG pH 7.40 (7.35-7.45) ABG Total CO2 38.3 H (22-28) mmol/L ABG O2 Saturation 99.4 H (95-98) % ABG O2 Content 12.4 L (15-23) ML/dL ABG Base Excess 10.2 H (-2.0-3.0) mmol/L ABG Hemoglobin 8.9 L (11.7-17.4) g/dL ABG Carboxyhemoglobin 1.4 (0.5-1.5) % POC ABG HHb (Measured) 0.6 (0.0-5.0) % ABG Methemoglobin 0.6 (0.0-3.0) % ABG O2 Capacity 12.5 L (16-24) mL/dL Tawanda Test Yes A-a O2 Difference 86.0 mm/Hg Hgb O2 Saturation 97.4 (95.0-98.0) % Vent Mode Cpap FiO2 40.0 % PEEP 5 Pressure Support 15 Sodium 129 L (132-148) mmol/l Potassium 5.1 H (3.6-5.0) MMOL/L Chloride 93 L (98-107) mmol/L Carbon Dioxide 31 H (22-30) mmol/L Anion Gap 10 (10-20) BUN 11 (7-17) mg/dl Creatinine 0.3 L (0.7-1.2) mg/dL Est GFR ( Amer) > 60 Est GFR (Non-Af Amer) > 60 Random Glucose 93 (65-105) mg/dL Calcium 8.3 L (8.4-10.2) mg/dL Laboratory Results - last 24 hr 07/14/16 07/14/16 04:46 04:50 WBC 5.9 RBC 3.24 L Hgb 8.5 L Hct 28.0 L MCV 86.2 MCH 26.3 L MCHC 30.5 L RDW 29.7 H Plt Count 128 L pCO2 59 H pO2 125 H HCO3 32.9 H ABG pH 7.40 ABG Total CO2 38.3 H ABG O2 Saturation 99.4 H ABG O2 Content 12.4 L ABG Base Excess 10.2 H ABG Hemoglobin 8.9 L ABG Carboxyhemoglobin 1.4 POC ABG HHb (Measured) 0.6 ABG Methemoglobin 0.6 ABG O2 Capacity 12.5 L Tawanda Test Yes A-a O2 Difference 86.0 Hgb O2 Saturation 97.4 Vent Mode Cpap FiO2 40.0 PEEP 5 Pressure Support 15 Sodium 129 L Potassium 5.1 H Chloride 93 L Carbon Dioxide 31 H Anion Gap 10 BUN 11 Creatinine 0.3 L Est GFR ( Amer) > 60 Est GFR (Non-Af Amer) > 60 Random Glucose 93 Calcium 8.3 L Review of Systems - Review of Systems Review of Systems: see HPI Critical Care Progress Note - Ventilator Checklist Head of Bed 30 Degrees: Yes Daily Sedation Vacation: Yes Daily Assessment of Readiness to Learn: Yes Daily Spontaneous Breathing Trial: Yes PUD Prophalyxis: Yes DVT Prophylaxis: Yes Oral Care with Chlorhexidine Gluconate {CHG}: Yes - Vent Settings MODE:: CPAP FIO2:: 40 PEEP:: 5 PRESSURE SUPPORT:: 15 - Extremities/Vascular Does the Patient have a Central Venous Catheter?: Yes Insertion Site: Subclavian Vein Assessment/Plan - Assessment and Plan (Free Text) Plan: 66 yo F w PMHx of HTN, COPD, bilateral Breast cancer, h/o Hyperthyroidism is admitted to ICU for recently frequent copd exacerbations 1) Acute bronchitis with chronic obstructive pulmonary disease (COPD) -Bronchial washings grew Stenotrophomonas Maltophilia, tx w Bactrim and Fortaz -CPAP+PS: PEEP 5, PS 15, FiO2 40 ---will be placed on VentiMask 40% when extubated -Bactrim 435mg IVPB Q12H -Fortaz 1g IVPB Q8H -Diflucan 200mg IVPB Daily -Spironolactone 25mg PO Daily -Ipratropium 0.5mg INH RQ6 -Methylprednisolone 40mg IV Q12H -Duoneb 3mL RQ4H PRN -will attempt to extubate, place on VentiMask, and monitor SpO2 -f/u respiratory function 2) Anemia -Chronically low, has been transfused previously when Hgb has dropped -H/H today is 8.5/28.0, was 9.0/28.8 yesterday -Will be given 2u pRBCs, as per Hem/Onc -f/u labs -f/u s/s, though it might be difficult given her clinical presentation 3) Acute exacerbation of Systolic CHF -Echo (06/14): The systolic function is moderately impaired, EF 40-45 % dilated RV with mild/mod decrease RV function, diastolic inflow pattern is restrictive -Spironolactone 25mg PO Daily -f/u strict I&Os -f/u Daily Wt 4) VRE (vancomycin resistant enterococcus) culture positive -mandible osteomyelitis wound Cx+ resulted: VRE -Linezolid 600mg IVPB Q12H -f/u OMFS regarding presence/course of drains 5) Anxiety -Xanax 0.25mg PO Q12H 6) Hyperthyroidism -Methimazole 5mg PO BID <Wayne Turcios - Last Filed: 07/14/16 16:33> CCU Subjective - Physician Review Subjective (Free Text): Attestation: Patient seen and examined at the bedside with Resident Dr. Thomas Louie; and I agree with his outline of plans and management documented below as discussed on AM rounds reflecting my review of all applicable clinical data, and participation in the care of the patient throughout the day in ICU; today, July 14, 2016.
[2016-07-14 08:47] LABS: BLOOD UREA NITROGEN 11 mg/dl (7-17); GFR AFRICAN-AMERICAN > 60; GLUCOSE,RANDOM 98 mg/dL (65-105)
[2016-07-14 08:48] LABS: CALCIUM 8.5 mg/dL (8.4-10.2); CARBON DIOXIDE 33 mmol/L (22-30); CHLORIDE 92 mmol/L (98-107); POTASSIUM 4.8 MMOL/L (3.6-5.0); SODIUM 131 mmol/l (132-148)
[2016-07-14] MEDS: methIMAzole 5 MG TAB PO SCH (08:53)
[2016-07-14] MEDS: Pantoprazole 40 mg EC Tab PO SCH (08:53)
[2016-07-14] MEDS: methylPREDNISolone 40 MG in Sodium Chloride 0.9% 50 ML IV SCH ×2 (08:54→20:34)
[2016-07-14] MEDS: Lactobacillus Acidophilus 500 MU Cap PO SCH ×2 (08:54→17:19)
[2016-07-14] MEDS: Fluconazole IV 200mg/100 ml NS 100 ML IVPB SCH (08:56)
[2016-07-14] MEDS: Linezolid 600 mg in D5W 300 ml 300 ML IVPB SCH ×2 (08:57→21:00)
[2016-07-14] MEDS: Hydrocerin CREAM TOP SCH ×2 (09:06→16:53)
--- NOTE | 2016-07-14 09:53 | CP.PCM.PN ---
Subjective - Date & Time of Evaluation Date of Evaluation: 07/14/16 Time of Evaluation: 09:39 - Subjective Subjective: Interim events reviewed. Much improved overnight with change to fentanyl continuous infusion. Slept well last night. Feels rested this morning. Has been weaned to CPAP/PS ventilation yesterday afternoon, and hs remained on smae setting all night. Discussed with special certificate dictator this morning and there will likely be extubation today. Discussed with OMF surgery this AM also and the drains will likely be removed also. Awake and appears comfortable. Less tachycardic at 100BPM. SpO2 in the high 90'2. No dullness on palpation of the anterior chest. No subcutaneous emphysema palpated. Breath sounds very diminished bilaterally with rare sonorous rhonchi in the dependant areas bilaterally. No audible wheezing or bronchial breathing. Rare dry rales posteriorly. Heart rate 104 RSR, heart sounds are distant. + dependant edema without cyanosis. CXR essentially unchanged from the day prior. Continue present antibiotics. Likely will be extubated today. Hopefully drains will be removed today. May need to bridge post-extubation with NIPPV/High-Flow. DX: Buccal abscess with osteo of the right mandible. COPD with exacerbation/acute ventilatory failure (hypercarbic). Hyperthyroidism. Pneumonia (gram negative-S maltophilia). Volume overload/hypoproteinemia with dependant edema. Metabolic alkalosis/electrolyte imbalance. Anemia of chronic disease. Objective - Vital Signs/Intake and Output Vital Signs (last 24 hours): Temp Pulse Resp BP Pulse Ox 98.4 F 106 H 10 L 88/60 L 99 07/14/16 08:00 07/14/16 08:00 07/14/16 08:00 07/14/16 08:00 07/14/16 08:00 Intake and Output: 07/13/16 07/14/16 23:59 11:59 Intake Total 629 1365 Output Total 875 987 Balance -246 378 - Medications Medications: Current Medications Albuterol Sulfate (Albuterol 0.083% Inhal Aby (2.5 Mg/3 Ml) Ud) 2.5 mg INH RQ6 [facility]RE[facility] Last Admin: 07/14/16 08:10 Dose: 2.5 mg Albuterol/Ipratropium (Duoneb 3 Mg/0.5 Mg (3 Ml) Ud) 3 ml INH RQ4 PRN PRN Reason: Shortness of Breath Alprazolam (Xanax) 0.25 mg PO Q12 PRN PRN Reason: Anxiety Stop: 07/21/16 09:34 Anastrozole (Arimidex 1 Mg Tab) 1 mg PO DAILY [facility] Last Admin: 07/14/16 08:52 Dose: 1 mg Gabapentin (Neurontin) 600 mg PO Q8 [facility] Last Admin: 07/14/16 08:52 Dose: 600 mg Fluconazole (Diflucan Iv 200 Mg/100 Ml Ns) 100 mls @ 100 mls/hr IVPB DAILY [facility] Last Admin: 07/14/16 08:56 Dose: 100 mls/hr Linezolid (Zyvox 600mg/300ml D5w) 300 mls @ 300 mls/hr IVPB Q12 [facility] Last Admin: 07/14/16 08:57 Dose: 300 mls/hr Trimethoprim/Sulfamethoxazole (435 mg/ Dextrose) 500 mls @ 333.333 mls/hr IVPB Q12H [facility] Last Admin: 07/14/16 01:44 Dose: 333.333 mls/hr Methylprednisolone 40 mg/ (Sodium Chloride) 50 mls @ 100 mls/hr IV Q12 [facility] Last Admin: 07/14/16 08:54 Dose: 100 mls/hr Ceftazidime 1 gm/ Sodium (Chloride) 100 mls @ 200 mls/hr IVPB Q8 [facility] Last Admin: 07/14/16 08:54 Dose: 200 mls/hr Ipratropium [place] (Atrovent) 0.5 mg IH RQ6 [facility] Last Admin: 07/14/16 08:10 Dose: 0.5 mg Lactobacillus Acidophilus (Bacid Acidophilus) 1 cap PO BID [facility] Last Admin: 07/14/16 08:54 Dose: 1 cap Lorazepam (Ativan) 1 mg IVP Q4 PRN PRN Reason: Anxiety Last Admin: 07/13/16 22:19 Dose: 1 mg Methimazole (Tapazole) 5 mg PO DAILY [facility] Last Admin: 07/14/16 08:53 Dose: 5 mg Morphine Sulfate (Morphine) 2 mg IVP Q2 PRN PRN Reason: Pain, moderate (4-7) Last Admin: 07/13/16 11:19 Dose: 2 mg Multi-Ingredient Cream (Hydrocerin Cream) 1 applic TOP BID [facility] Last Admin: 07/14/16 09:06 Dose: 1 applic Nitroglycerin (Nitro-Bid 2% Oint) 1 in TOP Q6 [facility] Last Admin: 07/14/16 09:09 Dose: 1 in Pantoprazole Sodium (Protonix Ec Tab) 40 mg PO DAILY [facility] Last Admin: 07/14/16 08:53 Dose: 40 mg Spironolactone (Aldactone) 25 mg PO DAILY [facility] Last Admin: 07/14/16 08:51 Dose: 25 mg Zolpidem Tartrate (Ambien) 5 mg PO PRN PRN Reason: Sleep Last Admin: 07/11/16 22:47 Dose: 5 mg - Labs Labs: 07/14/16 04:50 07/14/16 08:15 PT 11.2 SECONDS (9.6-11.2) 07/09/16 08:00 INR 1.08 (0.92-1.08) 07/09/16 08:00 APTT 27.7 SECONDS (23.3-32.5) 07/09/16 08:00 Assessment and Plan (1) Acute bronchitis with chronic obstructive pulmonary disease (COPD) Status: Acute (2) Hyperthyroidism Status: Chronic (3) Abscess Status: Acute (4) Hypokalemia Status: Acute
--- NOTE | 2016-07-14 10:01 | CP.CCUPN ---
CCU Subjective - Physician Review Subjective (Free Text): Ship Officer Procedure Note EXTUBATION: Has been on CPAP PS mode from 4 PM yesterday and still appears comfortable, albeit as she is coming off fentanyl drip. Nevertheless, she is alert and denies any discomfort, fatigue nor chest discomfort. ABGs this Am were acceptable as well as hemodynamics. Decision made for extubation: ETT removed without difficulty and placed onto 40 % Cool Aerosol Mask; no immediate stridor noted, SPo2 97%. OGT removed as well to facilitate patient's ventilatory efforts. Will continue close observation and will consider initiating Fenatnyl patch to control any discomfort from R chest area which progresses to and induces an anxiety episode for the patient.
--- NOTE | 2016-07-14 10:10 | CP.PCM.PN ---
Subjective - Date & Time of Evaluation Date of Evaluation: 07/14/16 Time of Evaluation: 10:08 - Subjective Subjective: Pt feels much better today. She will be extubated today. The right mandibular pain is lesser,. The Hgb however is lower to 8.5gms. Will transfuse 2 units of packed cells today. Objective - Vital Signs/Intake and Output Vital Signs (last 24 hours): Temp Pulse Resp BP Pulse Ox 98.4 F 106 H 10 L 88/60 L 99 07/14/16 08:00 07/14/16 08:00 07/14/16 08:00 07/14/16 08:00 07/14/16 08:00 Intake and Output: 07/14/16 07/14/16 06:59 18:59 Intake Total 1734 Output Total 1387 Balance 347 - Medications Medications: Current Medications Albuterol Sulfate (Albuterol 0.083% Inhal Aby (2.5 Mg/3 Ml) Ud) 2.5 mg INH RQ6 [facility] Last Admin: 07/14/16 08:10 Dose: 2.5 mg Albuterol/Ipratropium (Duoneb 3 Mg/0.5 Mg (3 Ml) Ud) 3 ml INH RQ4 PRN PRN Reason: Shortness of Breath Alprazolam (Xanax) 0.25 mg PO Q12 PRN PRN Reason: Anxiety Stop: 07/21/16 09:34 Anastrozole (Arimidex 1 Mg Tab) 1 mg PO DAILY [facility] Last Admin: 07/14/16 08:52 Dose: 1 mg Gabapentin (Neurontin) 600 mg PO Q8 [facility]PL[facility] Last Admin: 07/14/16 08:52 Dose: 600 mg Fluconazole (Diflucan Iv 200 Mg/100 Ml Ns) 100 mls @ 100 mls/hr IVPB DAILY [facility] Last Admin: 07/14/16 08:56 Dose: 100 mls/hr Linezolid (Zyvox 600mg/300ml D5w) 300 mls @ 300 mls/hr IVPB Q12 [facility] Last Admin: 07/14/16 08:57 Dose: 300 mls/hr Trimethoprim/Sulfamethoxazole (435 mg/ Dextrose) 500 mls @ 333.333 mls/hr IVPB Q12H REPLACED [facility] Last Admin: 07/14/16 01:44 Dose: 333.333 mls/hr Methylprednisolone 40 mg/ (Sodium Chloride) 50 mls @ 100 mls/hr IV Q12 REPLACED BY [facility] Last Admin: 07/14/16 08:54 Dose: 100 mls/hr Ceftazidime 1 gm/ Sodium (Chloride) 100 mls @ 200 mls/hr IVPB Q8 [facility]PLACED [facility] Last Admin: 07/14/16 08:54 Dose: 200 mls/hr Ipratropium [place] (Atrovent) 0.5 mg IH RQ6 [facility]PLACED [facility] Last Admin: 07/14/16 08:10 Dose: 0.5 mg Lactobacillus Acidophilus (Bacid Acidophilus) 1 cap PO BID [facility]PL[facility]ED [facility] Last Admin: 07/14/16 08:54 Dose: 1 cap Lorazepam (Ativan) 1 mg IVP Q4 PRN PRN Reason: Anxiety Last Admin: 07/13/16 22:19 Dose: 1 mg Methimazole (Tapazole) 5 mg PO DAILY [facility] Last Admin: 07/14/16 08:53 Dose: 5 mg Morphine Sulfate (Morphine) 2 mg IVP Q2 PRN PRN Reason: Pain, moderate (4-7) Last Admin: 07/13/16 11:19 Dose: 2 mg Multi-Ingredient Cream (Hydrocerin Cream) 1 applic TOP BID REPLACED BY [facility] Last Admin: 07/14/16 09:06 Dose: 1 applic Nitroglycerin (Nitro-Bid 2% Oint) 1 in TOP Q6 REPLACED BY [facility] Last Admin: 07/14/16 09:09 Dose: 1 in Pantoprazole Sodium (Protonix Ec Tab) 40 mg PO DAILY [facility]PLACED BY [facility] Last Admin: 07/14/16 08:53 Dose: 40 mg Spironolactone (Aldactone) 25 mg PO DAILY [facility]PL[facility] Last Admin: 07/14/16 08:51 Dose: 25 mg Zolpidem Tartrate (Ambien) 5 mg PO HS PRN PRN Reason: Sleep Last Admin: 07/11/16 22:47 Dose: 5 mg - Labs Labs: 07/14/16 04:50 07/14/16 08:15 PT 11.2 SECONDS (9.6-11.2) 07/09/16 08:00 INR 1.08 (0.92-1.08) 07/09/16 08:00 APTT 27.7 SECONDS (23.3-32.5) 07/09/16 08:00
--- NOTE | 2016-07-14 10:59 | CP.PCM.PN ---
Subjective - Date & Time of Evaluation Date of Evaluation: 07/14/16 Time of Evaluation: 10:30 - Subjective Subjective: Pt was just extubated No fever feels anxious and complains of chest discomfort, facial pain tachycardic to 120s on monitor BP stable denies abd pain, no diarrhea no N/V Objective - Vital Signs/Intake and Output Vital Signs (last 24 hours): Temp Pulse Resp BP Pulse Ox 98.4 F 106 H 10 L 88/60 L 99 07/14/16 08:00 07/14/16 08:00 07/14/16 08:00 07/14/16 08:00 07/14/16 08:00 Intake and Output: 07/14/16 07/14/16 06:59 18:59 Intake Total 1734 Output Total 1387 Balance 347 - Medications Medications: Current Medications Albuterol Sulfate (Albuterol 0.083% Inhal Aby (2.5 Mg/3 Ml) Ud) 2.5 mg INH RQ6 ANDREAS Last Admin: 07/14/16 08:10 Dose: 2.5 mg Albuterol/Ipratropium (Duoneb 3 Mg/0.5 Mg (3 Ml) Ud) 3 ml INH RQ4 PRN PRN Reason: Shortness of Breath Alprazolam (Xanax) 0.25 mg PO Q12 PRN PRN Reason: Anxiety Stop: 07/21/16 09:34 Anastrozole (Arimidex 1 Mg Tab) 1 mg PO DAILY REPLACED BY [facility] Last Admin: 07/14/16 08:52 Dose: 1 mg Fentanyl (Duragesic) 2 patch TD Q3D ANDREAS PRN Reason: Protocol Last Admin: 07/14/16 10:57 Dose: 2 patch Gabapentin (Neurontin) 600 mg PO Q8 REPLACED BY [facility] Last Admin: 07/14/16 08:52 Dose: 600 mg Fluconazole (Diflucan Iv 200 Mg/100 Ml Ns) 100 mls @ 100 mls/hr IVPB DAILY REPLACED BY [facility] Last Admin: 07/14/16 08:56 Dose: 100 mls/hr Linezolid (Zyvox 600mg/300ml D5w) 300 mls @ 300 mls/hr IVPB Q12 REPLACED BY [facility] Last Admin: 07/14/16 08:57 Dose: 300 mls/hr Trimethoprim/Sulfamethoxazole (435 mg/ Dextrose) 500 mls @ 333.333 mls/hr IVPB Q12H REPLACED BY [facility] Last Admin: 07/14/16 01:44 Dose: 333.333 mls/hr Methylprednisolone 40 mg/ (Sodium Chloride) 50 mls @ 100 mls/hr IV Q12 REPLACED BY [facility] Last Admin: 07/14/16 08:54 Dose: 100 mls/hr Ceftazidime 1 gm/ Sodium (Chloride) 100 mls @ 200 mls/hr IVPB Q8 REPLACED BY [facility] Last Admin: 07/14/16 08:54 Dose: 200 mls/hr Ipratropium [place] (Atrovent) 0.5 mg IH RQ6 REPLACED BY [facility] Last Admin: 07/14/16 08:10 Dose: 0.5 mg Lactobacillus Acidophilus (Bacid Acidophilus) 1 cap PO BID REPLACED BY [facility] Last Admin: 07/14/16 08:54 Dose: 1 cap Lorazepam (Ativan) 1 mg IVP Q4 PRN PRN Reason: Anxiety Last Admin: 07/13/16 22:19 Dose: 1 mg Methimazole (Tapazole) 5 mg PO DAILY REPLACED BY [facility] Last Admin: 07/14/16 08:53 Dose: 5 mg Morphine Sulfate (Morphine) 2 mg IVP Q2 PRN PRN Reason: Pain, moderate (4-7) Last Admin: 07/14/16 10:15 Dose: 2 mg Multi-Ingredient Cream (Hydrocerin Cream) 1 applic TOP BID REPLACED BY [facility] Last Admin: 07/14/16 09:06 Dose: 1 applic Nitroglycerin (Nitro-Bid 2% Oint) 1 in TOP Q6 REPLACED BY [facility] Last Admin: 07/14/16 09:09 Dose: 1 in Pantoprazole Sodium (Protonix Ec Tab) 40 mg PO DAILY REPLACED BY [facility] Last Admin: 07/14/16 08:53 Dose: 40 mg Spironolactone (Aldactone) 25 mg PO DAILY REPLACED BY [facility] Last Admin: 07/14/16 08:51 Dose: 25 mg Zolpidem Tartrate (Ambien) 5 mg PO HS PRN PRN Reason: Sleep Last Admin: 07/11/16 22:47 Dose: 5 mg - Labs Labs: 07/14/16 04:50 07/14/16 08:15 PT 11.2 SECONDS (9.6-11.2) 07/09/16 08:00 INR 1.08 (0.92-1.08) 07/09/16 08:00 APTT 27.7 SECONDS (23.3-32.5) 07/09/16 08:00 - Constitutional Appears: In Acute Distress, Older Than Stated Age, Chronically Ill - Head Exam Head Exam: NORMOCEPHALIC Additional comments: Right facial abscess with Isabel drain - Eye Exam Eye Exam: Normal appearance, PERRL Pupil Exam: NORMAL ACCOMODATION - ENT Exam ENT Exam: Mucous Membranes Dry, Normal External Ear Exam - Neck Exam Neck Exam: Full ROM. absent: Meningismus - Respiratory Exam Respiratory Exam: Accessory Muscle Use, Chest Wall Tenderness, Decreased Breath Sounds, Rhonchi, Wheezes (minimal wheeze) - Cardiovascular Exam Cardiovascular Exam: Tachycardia, REGULAR RHYTHM, +S1, +S2 - GI/Abdominal Exam GI & Abdominal Exam: Soft, Normal Bowel Sounds. absent: Tenderness - Extremities Exam Extremities Exam: Normal Capillary Refill, Pedal Edema. absent: Calf Tenderness Additional comments: right arm edema - Back Exam Back Exam: absent: CVA tenderness (L), CVA tenderness (R) - Neurological Exam Neurological Exam: Alert, Awake, Oriented x3 - Psychiatric Exam Psychiatric exam: Normal Affect, Normal Mood - Skin Skin Exam: Dry, Normal Color, Warm Assessment and Plan (1) Acute and chronic respiratory failure with hypercapnia Status: Acute (2) Osteomyelitis of mandible Status: Acute (3) Hypothyroidism Status: Acute (4) Acute exacerbation of chronic obstructive pulmonary disease (COPD) Status: Acute (5) HTN (hypertension) Status: Chronic (6) Hx of breast cancer Status: Chronic (7) Acute exacerbation of CHF (congestive heart failure) Status: Acute (8) Hypokalemia Status: Acute (9) Facial abscess Status: Acute (10) DVT prophylaxis Status: Acute - Assessment and Plan (Free Text) Assessment: 66 y/o female PMH COPD, bilateral breast CA s/p chemo and radiation 8 years ago , HTN, Hyperthyroidism presented with 2 week history of worsening bilateral lower extremity swelling and weakness, unable to get herself up to her walker. Patient has mild dyspnea at baseline. She also came with a large right facial swelling for almost 2 weeks and was taking PO antibiotics prescribed by her dentist. Patient was admitted for generalized weakness , Hyponatremia and Facial abscess. She was started on IV antibiotics for facial abscess and Lasix IV with fluid restriction for LE edema. Maxillofacial Ct showed possible abscess accumulation. Evaluated by Oromaxillofacial surgeon and underwent Incision and drainage of abscess. Bone scan showed possible osteomyelitis . ID recommends 4-6 wks IV abx treatment. During this hospitalization noted to have increased dyspnea at rest and more so with minimal activity, decreased air entry bilaterally and increased work of breathing. She was started on high flow O2, Higher doses of theophylline and IV hydrocortisone. CTA chest and LE doppler showed no DVT. She was transferred to ICU for close monitoring for tachypnea and tachycardia. She underwent IR drainage on 06/24 of right facial abscess due to reaccumulation and cultures came positive for VRE and bria. Antibiotics were changed to Zyvox , Meropenem and Fluconazone. Despite drainage and IV antibiotics she still kept complaining of pain to right supramandibular area with increased swelling. Repeat CT showed abscess formation. Patient underwent I&D in OR 07/06/16 with ginger drainage placement. She continues to have episodes of resp distress - tachypneic , tachycardic , with chest congestion , unable to expectorate despite high flow O2 therapy, Duonebs and Corticosteroids. 07/07/16 underwent Bronchoscopy. BAL showed Stenotrophomonas Maltophilia. Antibiotics changed to IV bactrim, Levaquin , Zyvox and Fluconazole. On 07/09 she developed severe respiratory distress with hypoxemia requiring intubation. Today 07/14 - pt was extubated. 1. Acute on Chronic Respiratory Failure with hypercapnea Intubated on 07/09 and just extubated this morning Pulmonary on board following patient s/p bronchoscopy 07/07/16 with BAL growing Stenotrophomonas maltophilla. Continue bactrim, Fortaz, diflucan and zyvox as per ID on Methylprednisone 40 mg Iv q12 Xopenex, albuterol and tiotropium inhaler 2. Chest Pain , prob sec to Anxiety, ACS ruled out with recurrent pressure like chest pain on and off cardiology consuled Dr. Luu Trop -- negative and EKG showed no ST-T wave changes Most likely atypical chest pain related to anxiety , hypokalemia and COPD. There is no signs of ischemia Pain mgt consult Fentanyl patch started 3. Facial abscess with mandibular Osteomyelitis s/p drainage of abscess with penreose drain placement s/p Incision and drainage on 06/[address] Anderson maxillofacial surgeon and rpt I&D 07/06 , now with Ginger drain placed pathology report showed inflammatory cells, no malignancy Nuclear Bone Scan suggestive of osteomyelitis initial cultures were with no growth so was started on Zosyn ,and Clindamycin IV ID consult with Dr Obrien appreciated . Recommended IV abx 6 wks total ( has been on antibiotics for 5 weeks) Tunneled central line placed for fdc IV antibiotics- this will need to be d/c by IR after IV abx treatment is completed ( as discussed with Dr Gunter - pt was informed of need to see IR after abx tx) Due to increased swelling and pain patient underwent drainage of facial collection by IR on 06/24 and 24 ml yellow fluid obtained. Cultures reported as VRE and Bria Ginger drain placed on 07/06 ( still in place with minimal drainage - Dr Ambrose to re-berger if drain can be d/c) continue Zyvox , Bactrim, Fortaz and Fluconazole ENT consulted , Dr Priest 4. Bilateral LE edema sec to CHF exacerbation with diastolic dysfxn Echo showed EF 40-45 % and dilated RV continue fluid restriction Promote ambulation once better cont Aldactone 5. Hypokalemia multifactorial diuretic induced , Albuterol, Hypothyroidism and GI loss off Lasix Continue KCl runs and PO replacement as needed Nephro consult appreciated CT of abd showed no adrenal mass on Aldactone 6 .Hyponatremia most likely secondary to solute depletion and infection Continue fluid restriction 7.Hx breast ca, bilateral stable, s/p bilateral mastectomy continue Arimidex 8. Tachycardia -- multifactorial Hx of HTN was on verapamil at home ( 80mg tid) but decreased dose due to low BP and now discontinued as may contribute to leg edema- discussed with Dr Turcios- will restart Verapamil low dose continue monitoring patient with high levels of anxiety and pain Fentanyl patch started however still complains of pin - called Dr Verdugo for Pain mgt , discussed case 9. Hypothyroidism/ Hyperthyroidism patient has history of hyperthyroidism , was on Methimazole and noticed to had developed hypothyroidism so Methimazole was d/c and she was started on Po levothyroxine this admission , TSH then went down and Metrhimazole restarted Methimazole 5 mg po daily restarted as discussed with Dr Vu 10. Anemia, chronic dis monitor anemia work up showed depleted iron stores Venofer IV given s/p 2 units PRBC transfusion 11. Right cephalic vein thrombosis ( superficial vein) no need for therapeutic anticoag 12.DVT ppx on lovenox
[2016-07-14] MEDS ORDERED: Metoprolol 1 mg/ml Inj IVP ONE (13:45)
--- NOTE | 2016-07-14 14:08 | RAD ---
PROCEDURE: CHEST RADIOGRAPH, 1 VIEW Technique: Single view portable semi erect @ 04:25. HISTORY: intubated COMPARISON: July 13, 2016. FINDINGS: LUNGS: Stable consolidative changes PLEURA: Stable pleural effusions. CARDIOVASCULAR: No radiographic findings to suggest acute or significant cardiovascular disease. OSSEOUS STRUCTURES: No significant abnormalities. VISUALIZED UPPER ABDOMEN: Normal. OTHER FINDINGS: Stable, satisfactory position ventilatory, vascular and nasogastric apparatus. IMPRESSION: No significant interval change compared to the prior examination(s).
--- NOTE | 2016-07-14 14:48 | CP.PCM.CON ---
History of Present Illness - History of Present Illness History of Present Illness: Patient is well known to me from two trips to the OR for mandibular abscess I& D. She is referred for pain management. She's been tachycardic, which improved after she was put on Fentanyl gtt. The drip was converted to patch today, at 50mcg/hr, applied late morning. Morphine IV PRN was also ordered. Currently she appears comfortable, resting, though HR still in 120's. It's difficult to gather history from the patient now due to hoarseness. She complains of diffuse chest wall pain, moreso than right facial pain. It is reproducible with palpation, and somewhat pleuritic, but additional information is impossible to gather. She denies side effects from the current regimen. She's on Neurontin as well. Past Patient History - Infectious Disease Hx of Infectious Diseases: MRSA - Tetanus Immunizations Tetanus Immunization: Unknown - Past Medical History & Family History Past Medical History?: Yes - Past Social History Smoking Status: Current Some Days Smoker Chewing Tobacco Use: No Cigar Use: No Alcohol: Social Drugs: Denies - CARDIAC Hx Cardiac Disorders: Yes Hx Hypertension: Yes - PULMONARY Hx Respiratory Disorders: Yes Hx Asthma: Yes Hx Chronic Obstructive Pulmonary Disease (COPD): Yes Hx Pneumonia: Yes - NEUROLOGICAL Hx Neurological Disorder: Yes Other/Comment: peripheral neuropathy right lower extremity. - HEENT Hx HEENT Problems: Yes Other/Comment: recent right buccal abscess with possible involvement of the mandible - RENAL Hx Chronic Kidney Disease: No - ENDOCRINE/METABOLIC Hx Endocrine Disorders: Yes Hx Hyperthyroidism: Yes (on methimazole) - HEMATOLOGICAL/ONCOLOGICAL Hx Blood Disorders: Yes Hx Bruising: Yes Hx Human Immunodeficiency Virus (HIV): No - INTEGUMENTARY Hx Dermatological Problems: No - MUSCULOSKELETAL/RHEUMATOLOGICAL Hx Musculoskeletal Disorders: Yes (Multiple fractures) Hx Falls: Yes Hx Osteoporosis: Yes - GASTROINTESTINAL Hx Gastrointestinal Disorders: Yes Hx Gall Bladder Disease: Yes - GENITOURINARY/GYNECOLOGICAL Hx Genitourinary Disorders: No - PSYCHIATRIC Hx Psychophysiologic Disorder: No Hx Substance Use: No - SURGICAL HISTORY Hx Surgeries: Yes Hx Mastectomy: Yes (right in 1998; left in 2008) Hx Orthopedic Surgery: Yes (2003 rigtht shoulder prosthesis, removal of hardware 2013) Hx Tubal Ligation: Yes Other/Comment: shoulder and humerous replacement with joint space infection and eventual removal of hardware in right shoulder and chronic lymphedema of JIMMY groin cyst removal, cervical spinal fusion 2007, lumbar spinal fusion 2007. - ANESTHESIA Hx Anesthesia: Yes Hx Anesthesia Reactions: No Hx Malignant Hyperthermia: No Meds Allergies/Adverse Reactions: Allergies Allergy/AdvReac Type Severity Reaction Status Date / Time paper tape Allergy RASH Uncoded 06/03/16 21:31 - Medications Medications: Current Medications Albuterol Sulfate (Albuterol 0.083% Inhal Aby (2.5 Mg/3 Ml) Ud) 2.5 mg INH RQ6 ANDREAS Last Admin: 07/14/16 13:33 Dose: 2.5 mg Albuterol/Ipratropium (Duoneb 3 Mg/0.5 Mg (3 Ml) Ud) 3 ml INH RQ4 PRN PRN Reason: Shortness of Breath Alprazolam (Xanax) 0.25 mg PO Q12 PRN PRN Reason: Anxiety Stop: 07/21/16 09:34 Anastrozole (Arimidex 1 Mg Tab) 1 mg PO DAILY [facility] Last Admin: 07/14/16 08:52 Dose: 1 mg Fentanyl (Duragesic) 2 patch TD Q3D ANDREAS PRN Reason: Protocol Last Admin: 07/14/16 10:57 Dose: 2 patch Gabapentin (Neurontin) 600 mg PO Q8 [facility] Last Admin: 07/14/16 08:52 Dose: 600 mg Fluconazole (Diflucan Iv 200 Mg/100 Ml Ns) 100 mls @ 100 mls/hr IVPB DAILY [facility] Last Admin: 07/14/16 08:56 Dose: 100 mls/hr Linezolid (Zyvox 600mg/300ml D5w) 300 mls @ 300 mls/hr IVPB Q12 ANDREAS Last Admin: 07/14/16 08:57 Dose: 300 mls/hr Trimethoprim/Sulfamethoxazole (435 mg/ Dextrose) 500 mls @ 333.333 mls/hr IVPB Q12H [facility] Last Admin: 07/14/16 01:44 Dose: 333.333 mls/hr Methylprednisolone 40 mg/ (Sodium Chloride) 50 mls @ 100 mls/hr IV Q12 ANDREAS Last Admin: 07/14/16 08:54 Dose: 100 mls/hr Ceftazidime 1 gm/ Sodium (Chloride) 100 mls @ 200 mls/hr IVPB Q8 [facility] Last Admin: 07/14/16 08:54 Dose: 200 mls/hr Ipratropium [place] (Atrovent) 0.5 mg IH RQ6 [facility] Last Admin: 07/14/16 08:10 Dose: 0.5 mg Lactobacillus Acidophilus (Bacid Acidophilus) 1 cap PO BID [facility] Last Admin: 07/14/16 08:54 Dose: 1 cap Lorazepam (Ativan) 1 mg IVP Q4 PRN PRN Reason: Anxiety Last Admin: 07/13/16 22:19 Dose: 1 mg Methimazole (Tapazole) 5 mg PO DAILY [facility] Last Admin: 07/14/16 08:53 Dose: 5 mg Morphine Sulfate (Morphine) 2 mg IVP Q2 PRN PRN Reason: Pain, moderate (4-7) Last Admin: 07/14/16 10:15 Dose: 2 mg Multi-Ingredient Cream (Hydrocerin Cream) 1 applic TOP BID [facility] Last Admin: 07/14/16 09:06 Dose: 1 applic Nitroglycerin (Nitro-Bid 2% Oint) 1 in TOP Q6 [facility] Last Admin: 07/14/16 09:09 Dose: 1 in Pantoprazole [place]odium (Protonix Ec Tab) 40 mg PO DAILY [facility] Last Admin: 07/14/16 08:53 Dose: 40 mg Spironolactone (Aldactone) 25 mg PO DAILY [facility] Last Admin: 07/14/16 08:51 Dose: 25 mg Verapamil HCl ([place] Tab) 40 mg PO TID [facility] Zolpidem Tartrate (Ambien) 5 mg PO HS PRN PRN Reason: Sleep Last Admin: 07/11/16 22:47 Dose: 5 mg Physical Exam - Respiratory Exam Respiratory Exam: Accessory Muscle Use, Chest Wall Tenderness, Decreased Breath Sounds, Rales, Respiratory Distress - Cardiovascular Exam Cardiovascular Exam: Tachycardia Results - Vital Signs Recent Vital Signs: Last Vital Signs Temp 98.4 F 07/14/16 12:00 Pulse 133 H 07/14/16 12:00 Resp 13 07/14/16 12:00 BP 139/79 07/14/16 12:00 Pulse Ox 96 07/14/16 12:00 - Labs Result Diagrams: 07/14/16 04:50 07/14/16 08:15 Labs: Laboratory Results - last 24 hr 07/14/16 07/14/16 07/14/16 04:46 04:50 08:15 WBC 5.9 RBC 3.24 L Hgb 8.5 L Hct 28.0 L MCV 86.2 MCH 26.3 L MCHC 30.5 L RDW 29.7 H Plt Count 128 L pCO2 59 H pO2 125 H HCO3 32.9 H ABG pH 7.40 ABG Total CO2 38.3 H ABG O2 Saturation 99.4 H ABG O2 Content 12.4 L ABG Base Excess 10.2 H ABG Hemoglobin 8.9 L ABG Carboxyhemoglobin 1.4 POC ABG HHb (Measured) 0.6 ABG Methemoglobin 0.6 ABG O2 Capacity 12.5 L Tawanda Test Yes A-a O2 Difference 86.0 Hgb O2 Saturation 97.4 Vent Mode Cpap FiO2 40.0 PEEP 5 Pressure Support 15 Sodium 129 L 131 L Potassium 5.1 H 4.8 Chloride 93 L 92 L Carbon Dioxide 31 H 33 H Anion Gap 10 11 BUN 11 11 Creatinine 0.3 L 0.4 L Est GFR ( Amer) > 60 > 60 Est GFR (Non-Af Amer) > 60 > 60 Random Glucose 93 98 Calcium 8.3 L 8.5 Blood Type O NEGATIVE Antibody Screen Negative Crossmatch See Detail BBK History Checked Patient has bt Assessment & Plan (1) Facial abscess Assessment and Plan: 66 yo woman w/ multiple medical problems, with right facial abscess/mandibular fracture, acute on chronic chest wall pain, remote history of right shoulder pain s/p replacement and subsequent hardware removal. It's difficult to assess exact source of chest wall pain, likely multi-factorial. Fentanyl patch was started today. - monitor response to Fentanyl patch, wait until tomorrow morning before titration - can continue Morphine IV PRN until fentanyl patch - continue Neurontin - will need careful titration, due to patient's respiratory status, consider JAWBONE PULLER if necessary Status: Acute
--- NOTE | 2016-07-14 16:02 | CARD ---
APPROVED REPORT EKG Measurement Heart [id number] HI [id number] <Conclusion> Sinus tachycardia with short HI Nonspecific T wave abnormality Abnormal ECG
--- NOTE | 2016-07-14 16:36 | PN ---
DATE: 07/14/2016 ROOM: 434, ICU. SUBJECTIVE: This is a 66-year-old female with overt congestive heart failure and supervening acute e xacerbation of COPD currently still on IV steroid therapy as given and is now being followed closely for metabolic management. She also has recent hyperthyroidism and has been placed on low dose medica l therapy with Tapazole medications as given. Her latest chemistry showed a BUN of 11, sodium 131, p otassium 4.8, chloride 92, CO2 33, glucose 98, and creatinine 0.4. Her latest thyroid study showed a T4 of 4.77 with a free T4 of 0.79 and a TSH of 3.42. So at this time, we will continue the low dose and modified medical therapy with Tapazole given as 5 mg once daily as ordered. We will titrate inc rementally as indicated to optimize metabolic control. We will follow. Polly Vu MD cc: [id number] TT: 07/14/2016 16:36:31 Confirmation # [id number] Dictation # [id number] tn
[2016-07-14] MEDS: Albuterol-Ipratrop 3 mg / 0.5 (3 ml) UD INH PRN (17:31)
[2016-07-15] MEDS: Albuterol 0.083% Inhal Sol (2.5 mg/3 mL) UD INH SCH ×4 (01:06→19:23)
[2016-07-15] MEDS: Ipratropium 0.02% Inhal Soln (0.5 mg/2.5 ml) UD IH SCH ×4 (01:06→19:23)
--- NOTE | 2016-07-15 01:27 | OP ---
PROCEDURE DATE: 07/06/2016 SURGEON: Dr. Alan Ambrose. ANESTHESIA: General anesthesia via oral intubation. PREOPERATIVE DIAGNOSIS: Facial cellulitis. POSTOPERATIVE DIAGNOSIS: Facial cellulitis. OPERATIVE FINDINGS: A large facial swelling extending from the temporal area down to the inferior border of the mandible. The operative findings revealed serous exudate fluids. The procedure is to do an extraoral incisional drainage. DESCRIPTION OF PROCEDURE: The patient was placed in the supine position and after adequate level of general anesthetic was obta ined, the patient was prepped and draped in the usual manner for extraoral surgical procedure. The p atient was then given lidocaine, approximately 7 mL with a #15 Bard Franki blade and incision was mad e in an independent site. The incision was taken down through the skin and subcutaneous tissue. A c urved Anahy blunt dissection was then taken up into the swollen area. We expressed approximately 10- 15 mL of serous yellow fluid. The site was then curettaged of necrotic tissue. A quarter inch Ginger drain was then placed and tacked to the incisional site. The operation performed was incisi on and drainage of facial cellulitis abscess. There were no complications. Blood loss was negligibl e. There was no transfusion. The patient's postop condition on discharge to the recovery and ICU wa s good. Alan Ambrose DMD cc: [id number] TT: 07/15/2016 01:27:14 hn
[2016-07-15] MEDS: DEXTROSE 5% IVPB SCH ×2 (02:26→14:53)
[2016-07-15] MEDS: WATER IVPB SCH ×2 (02:26→14:53)
[2016-07-15] MEDS: TRIMETHOPRIM IVPB SCH ×2 (02:26→14:53)
[2016-07-15] MEDS: SULFAMETHOXAZOLE IVPB SCH ×2 (02:26→14:53)
--- NOTE | 2016-07-15 02:37 | OP ---
PROCEDURE DATE: 06/09/2016 SURGEON: Alan Ambrose DMD. ANESTHESIA: General anesthesia, administrating. PREOPERATIVE DIAGNOSIS: Mandibular facial abscess. OPERATIVE FINDINGS: Revealed ulceration intraorally of the buccal mucosa and a flow of purulent exud ate. The oral opening was suppurative, and with blunt dissection, the area was then bluntly op ened, a large amount of purulent exudate was then expressed. The area was then curettaged of all the purulent matter and necrotic tissue. The site was copiously irrigated and COUNSELING SERVICES DIRECTOR and biopsy was then p erformed and submitted. Also on exam of the dentition, no evidence of any dental pathology was noted . The tissues were then closed. There were no complication. There was negative blood loss, negligi ble blood loss, and there were no drains placed. Alan Ambrose DMD cc: [id number] TT: 07/14/2016 22:01:06 in 07/15/2016 01:37:10
[2016-07-15] MEDS: Nitroglycerin 2% 1GM UD TOP SCH ×4 (04:20→22:25)
[2016-07-15 05:38] LABS: BASO % 0.2 % (0.0-2.0); HEMATOCRIT 35.8 % (34.0-47.0); LYMPH # 0.3 K/uL (1.0-4.3); LYMPH % 5.2 % (20.0-40.0); MEAN CELL VOLUME 86.4 fl (81.0-99.0); MEAN CORPUSCULAR HEMOGLOBIN 27.9 pg (27.0-31.0); MEAN CORPUSCULAR HGB CONC 32.3 g/dL (33.0-37.0); MEAN PLATELET VOLUME 8.2 fl (7.2-11.7); MONO # 0.3 K/uL (0.0-0.8); MONO % 4.5 % (0.0-10.0); NEUT # 5.3 K/uL (1.8-7.0); NEUT % 90.1 % (50.0-75.0); NRBC % 0.8 % (0.0-0.0); PLATELET COUNT 94 K/uL (130-400); RED CELL DISTRIBUTION WIDTH 24.6 % (11.5-14.5); WHITE BLOOD COUNT 5.9 K/uL (4.8-10.8)
[2016-07-15 05:42] LABS: ALKALINE PHOSPHATASE 143 U/L (38-126); ALT/SGPT 133 U/L (9-52); AST/SGOT 142 U/L (14-36); BILIRUBIN,TOTAL 0.4 mg/dl (0.2-1.3); BLOOD UREA NITROGEN 17 mg/dl (7-17); CALCIUM 8.5 mg/dL (8.4-10.2); CARBON DIOXIDE 33 mmol/L (22-30); CHLORIDE 92 mmol/L (98-107); GFR AFRICAN-AMERICAN > 60; GLUCOSE,RANDOM 125 mg/dL (65-105); POTASSIUM 4.9 MMOL/L (3.6-5.0); SODIUM 135 mmol/l (132-148); TOTAL PROTEIN 5.2 G/DL (6.3-8.2)
[2016-07-15 06:06] LABS: THYROID STIMULATING HORMONE 0.51 mIU/ML (0.46-4.68)
[2016-07-15] MEDS: Lactobacillus Acidophilus 500 MU Cap PO SCH ×3 (08:16→17:04)
[2016-07-15] MEDS: Pantoprazole 40 mg EC Tab PO SCH (08:20)
[2016-07-15] MEDS: methylPREDNISolone 40 MG in Sodium Chloride 0.9% 50 ML IV SCH ×2 (08:20→21:08)
[2016-07-15] MEDS: methIMAzole 5 MG TAB PO SCH ×2 (08:21→14:32)
[2016-07-15] MEDS: Linezolid 600 mg in D5W 300 ml 300 ML IVPB SCH ×2 (08:21→21:45)
[2016-07-15] MEDS: Hydrocerin CREAM TOP SCH ×2 (08:24→17:11)
--- NOTE | 2016-07-15 09:28 | CP.PCM.PN ---
Subjective - Date & Time of Evaluation Date of Evaluation: 07/15/16 Time of Evaluation: 09:25 - Subjective Subjective: Pt was extubated testerday , however noted to be in resp distress at present Pt is tachypeneic , tachycardic and uses accessory muscles of respiration Lethargic however opens eyes on verbal stimuli and follows simple commands Discussed with Hall Worker - and plan for reintubation. No fever + chest discomfort no abd pain Objective - Vital Signs/Intake and Output Vital Signs (last 24 hours): Temp Pulse Resp BP Pulse Ox 98.2 F 127 H 24 130/80 95 07/15/16 08:00 07/15/16 08:00 07/15/16 08:00 07/15/16 08:00 07/15/16 08:00 Intake and Output: 07/15/16 07/15/16 06:59 18:59 Intake Total 1600 Output Total 500 Balance 1100 - Medications Medications: Current Medications Albuterol Sulfate (Albuterol 0.083% Inhal Aby (2.5 Mg/3 Ml) Ud) 2.5 mg INH RQ6 [facility]RE[facility] Last Admin: 07/15/16 07:52 Dose: 2.5 mg Albuterol/Ipratropium (Duoneb 3 Mg/0.5 Mg (3 Ml) Ud) 3 ml INH RQ4 PRN PRN Reason: Shortness of Breath Last Admin: 07/14/16 17:31 Dose: 3 ml Alprazolam (Xanax) 0.25 mg PO Q12 PRN PRN Reason: Anxiety Stop: 07/21/16 09:34 Anastrozole (Arimidex 1 Mg Tab) 1 mg PO DAILY [facility] Last Admin: 07/14/16 08:52 Dose: 1 mg Fentanyl (Duragesic) 2 patch TD Q3D ANDREAS PRN Reason: Protocol Last Admin: 07/14/16 10:57 Dose: 2 patch Gabapentin (Neurontin) 600 mg PO Q8 [facility] Last Admin: 07/15/16 00:31 Dose: Not Given Linezolid (Zyvox 600mg/300ml D5w) 300 mls @ 300 mls/hr IVPB Q12 [facility] Last Admin: 07/15/16 08:21 Dose: 300 mls/hr Trimethoprim/Sulfamethoxazole (435 mg/ Dextrose) 500 mls @ 333.333 mls/hr IVPB Q12H [facility] Last Admin: 07/15/16 02:26 Dose: 333.333 mls/hr Methylprednisolone 40 mg/ (Sodium Chloride) 50 mls @ 100 mls/hr IV Q12 [facility] Last Admin: 07/15/16 08:20 Dose: 100 mls/hr Ceftazidime 1 gm/ Sodium (Chloride) 100 mls @ 200 mls/hr IVPB Q8 [facility] Last Admin: 07/15/16 08:18 Dose: 200 mls/hr Ipratropium [place] (Atrovent) 0.5 mg IH RQ6 [facility] Last Admin: 07/15/16 07:52 Dose: 0.5 mg Lactobacillus Acidophilus (Bacid Acidophilus) 1 cap PO BID [facility] Last Admin: 07/14/16 17:19 Dose: Not Given Lorazepam (Ativan) 1 mg IVP Q4 PRN PRN Reason: Anxiety Last Admin: 07/15/16 06:23 Dose: 1 mg Methimazole (Tapazole) 5 mg PO DAILY [facility] Last Admin: 07/14/16 08:53 Dose: 5 mg Morphine Sulfate (Morphine) 2 mg IVP Q2 PRN PRN Reason: Pain, moderate (4-7) Last Admin: 07/15/16 05:49 Dose: 2 mg Multi-Ingredient Cream (Hydrocerin Cream) 1 applic TOP BID [facility] Last Admin: 07/15/16 08:24 Dose: 1 applic Nitroglycerin (Nitro-Bid 2% Oint) 1 in TOP Q6 [facility] Last Admin: 07/15/16 04:20 Dose: Not Given Pantoprazole Sodium (Protonix Inj) 40 mg IVP DAILY [facility] Spironolactone (Aldactone) 25 mg PO DAILY [facility] Last Admin: 07/14/16 08:51 Dose: 25 mg Zolpidem Tartrate (Ambien) 5 mg PO HS PRN PRN Reason: Sleep Last Admin: 07/11/16 22:47 Dose: 5 mg - Labs Labs: 07/15/16 05:00 07/15/16 05:00 PT 11.2 SECONDS (9.6-11.2) 07/09/16 08:00 INR 1.08 (0.92-1.08) 07/09/16 08:00 APTT 27.7 SECONDS (23.3-32.5) 07/09/16 08:00 - Constitutional Appears: In Acute Distress, Older Than Stated Age, Chronically Ill - Head Exam Head Exam: NORMAL INSPECTION, NORMOCEPHALIC - Eye Exam Eye Exam: EOMI, Normal appearance Pupil Exam: NORMAL ACCOMODATION - ENT Exam ENT Exam: Mucous Membranes Dry, Normal External Ear Exam - Neck Exam Neck Exam: Full ROM. absent: Meningismus - Respiratory Exam Respiratory Exam: Accessory Muscle Use, Chest Wall Tenderness, Decreased Breath Sounds, Rhonchi, Respiratory Distress - Cardiovascular Exam Cardiovascular Exam: Tachycardia, REGULAR RHYTHM, +S1, +S2 - GI/Abdominal Exam GI & Abdominal Exam: Soft, Normal Bowel Sounds. absent: Tenderness - Extremities Exam Extremities Exam: absent: Calf Tenderness, Normal Capillary Refill Additional comments: Right arm edema right shoulder post surgical deformity - Neurological Exam Additional comments: lethargic , easily arousable, nods to say yes, follows simple commands oriented to person and place - Psychiatric Exam Psychiatric exam: Flat Affect - Skin Additional comments: noted ecchymosis denise on chest and LE Assessment and Plan (1) Acute and chronic respiratory failure with hypercapnia Status: Acute (2) Osteomyelitis of mandible Status: Acute (3) Hypothyroidism Status: Acute (4) Acute exacerbation of chronic obstructive pulmonary disease (COPD) Status: Acute (5) HTN (hypertension) Status: Chronic (6) Hx of breast cancer Status: Chronic (7) Acute exacerbation of CHF (congestive heart failure) Status: Acute (8) Hypokalemia Status: Acute (9) Facial abscess Status: Acute (10) DVT prophylaxis Status: Acute - Assessment and Plan (Free Text) Assessment: 66 y/o female PMH COPD, bilateral breast CA s/p chemo and radiation 8 years ago , HTN, Hyperthyroidism presented with 2 week history of worsening bilateral lower extremity swelling and weakness, unable to get herself up to her walker. Patient has mild dyspnea at baseline. She also came with a large right facial swelling for almost 2 weeks and was taking PO antibiotics prescribed by her dentist. Patient was admitted for generalized weakness , Hyponatremia and Facial abscess. She was started on IV antibiotics for facial abscess and Lasix IV with fluid restriction for LE edema. Maxillofacial Ct showed possible abscess accumulation. Evaluated by Oromaxillofacial surgeon and underwent Incision and drainage of abscess. Bone scan showed possible osteomyelitis . ID recommends 4-6 wks IV abx treatment. During this hospitalization noted to have increased dyspnea at rest and more so with minimal activity, decreased air entry bilaterally and increased work of breathing. She was started on high flow O2, Higher doses of theophylline and IV hydrocortisone. CTA chest and LE doppler showed no DVT. She was transferred to ICU for close monitoring for tachypnea and tachycardia. She underwent IR drainage on 06/24 of right facial abscess due to reaccumulation and cultures came positive for VRE and bria. Antibiotics were changed to Zyvox , Meropenem and Fluconazone. Despite drainage and IV antibiotics she still kept complaining of pain to right supramandibular area with increased swelling. Repeat CT showed abscess formation. Patient underwent I&D in OR 07/06/16 with ginger drainage placement. She continues to have episodes of resp distress - tachypneic , tachycardic , with chest congestion , unable to expectorate despite high flow O2 therapy, Duonebs and Corticosteroids. 07/07/16 underwent Bronchoscopy. BAL showed Stenotrophomonas Maltophilia. Antibiotics changed to IV bactrim, Fortaz, Zyvox and Fluconazole. On 07/09 she developed severe respiratory distress with hypoxemia requiring intubation and extubated on 07/14. Today , patient is again noted to be in resp distress, tachypeneic , tachycardic and needs to be reintubated. 1. Acute on Chronic Respiratory Failure with hypercapnea Intubated on 07/09 and extubated 8however today again in resp distress and will require reintubation Would also need Tracheostomy : Surgery: Dr Julio consulted Pulmonary: Dr Benz, is following pt closely s/p bronchoscopy 07/07/16 with BAL growing Stenotrophomonas maltophilla. Continue bactrim, Fortaz, diflucan and zyvox as per ID on Methylprednisone 40 mg Iv q12, Xopenex, albuterol and tiotropium inhaler 2. Chest Pain , prob sec to Anxiety, ACS ruled out with recurrent pressure like chest pain on and off cardiology consulted Dr. Luu Trop -- negative and EKG showed no ST-T wave changes Most likely atypical chest pain related to anxiety , hypokalemia and COPD. There is no signs of ischemia Pain mgt consulted- Dr Verdugo Fentanyl started Ativan prn 3. Facial abscess with mandibular Osteomyelitis s/p drainage of abscess with penreose drain placement s/p Incision and drainage on 06/[address] Anderson maxillofacial surgeon and rpt I&D 07/06 , now with Ginger drain placed pathology report showed inflammatory cells, no malignancy Nuclear Bone Scan suggestive of osteomyelitis initial cultures were with no growth ID consult with Dr Ryan appreciated . Recommended IV abx 6 wks total ( has been on antibiotics for 5 weeks) Tunneled central line placed for termite control representative IV antibiotics- this will need to be d/c by IR after IV abx treatment is completed ( as discussed with Dr Gunter - pt was informed of need to see IR after abx tx) Due to increased swelling and pain patient underwent drainage of facial collection by IR on 06/24 and 24 ml yellow fluid obtained. Cultures reported as VRE and Bria Ginger drain d/c by dr Ambrose yesterday continue Zyvox , Bactrim, Fortaz LFTs abnormal today - discussed with Dr ryan - rec to d/c IV Fluconazole 4. Bilateral LE edema sec to CHF exacerbation with diastolic dysfxn Echo showed EF 40-45 % and dilated RV continue fluid restriction Promote ambulation once better cont Aldactone 5. Hypokalemia multifactorial diuretic induced , Albuterol, Hypothyroidism and GI loss off Lasix, on Aldactone Continue KCl runs and PO replacement as needed Nephro consult appreciated CT of abd showed no adrenal mass 6 .Hyponatremia most likely secondary to solute depletion and infection Continue fluid restriction 7.Hx breast ca, bilateral stable, s/p bilateral mastectomy continue Arimidex 8. Tachycardia -- multifactorial Hx of HTN was on verapamil at home ( 80mg tid) but decreased dose due to low BP and now discontinued as may contribute to leg edema- discussed with Dr Turcios- restarted Verapamil low dose continue monitoring patient with high levels of anxiety and pain called Dr Verdugo for Pain mgt , discussed case 9. Hypothyroidism/ Hyperthyroidism patient has history of hyperthyroidism , was on Methimazole and noticed to had developed hypothyroidism so Methimazole was d/c and she was started on Po levothyroxine this admission , TSH then went down and Metrhimazole restarted Methimazole 5 mg po daily restarted as discussed with Dr Vu 10. Anemia, chronic dis monitor anemia work up showed depleted iron stores Venofer IV given s/p 2 units PRBC transfusion 11. Right cephalic vein thrombosis ( superficial vein) no need for therapeutic anticoag 12.DVT ppx on lovenox
--- NOTE | 2016-07-15 09:31 | CP.PCM.PN ---
Subjective - Date & Time of Evaluation Date of Evaluation: 07/15/16 Time of Evaluation: 09:28 - Subjective Subjective: Pt is afebrile and has been extubated for 1 day now. She was c/o pain in the right mandible, but pain medicine has to be given cautiously because of her respiratory status.Post transfusion Hgb is 11.2gms. Hopefully it will hold. Objective - Vital Signs/Intake and Output Vital Signs (last 24 hours): Temp Pulse Resp BP Pulse Ox 98.2 F 127 H 24 130/80 95 07/15/16 08:00 07/15/16 08:00 07/15/16 08:00 07/15/16 08:00 07/15/16 08:00 Intake and Output: 07/15/16 07/15/16 06:59 18:59 Intake Total 1600 Output Total 500 Balance 1100 - Medications Medications: Current Medications Albuterol Sulfate (Albuterol 0.083% Inhal Aby (2.5 Mg/3 Ml) Ud) 2.5 mg INH RQ6 [facility] Last Admin: 07/15/16 07:52 Dose: 2.5 mg Albuterol/Ipratropium (Duoneb 3 Mg/0.5 Mg (3 Ml) Ud) 3 ml INH RQ4 PRN PRN Reason: Shortness of Breath Last Admin: 07/14/16 17:31 Dose: 3 ml Alprazolam (Xanax) 0.25 mg PO Q12 PRN PRN Reason: Anxiety Stop: 07/21/16 09:34 Anastrozole (Arimidex 1 Mg Tab) 1 mg PO DAILY [facility] Last Admin: 07/14/16 08:52 Dose: 1 mg Fentanyl (Duragesic) 2 patch TD Q3D ANDREAS PRN Reason: Protocol Last Admin: 07/14/16 10:57 Dose: 2 patch Gabapentin (Neurontin) 600 mg PO Q8 [facility] Last Admin: 07/15/16 00:31 Dose: Not Given Linezolid (Zyvox 600mg/300ml D5w) 300 mls @ 300 mls/hr IVPB Q12 [facility] Last Admin: 07/15/16 08:21 Dose: 300 mls/hr Trimethoprim/Sulfamethoxazole (435 mg/ Dextrose) 500 mls @ 333.333 mls/hr IVPB Q12H [facility] Last Admin: 07/15/16 02:26 Dose: 333.333 mls/hr Methylprednisolone 40 mg/ (Sodium Chloride) 50 mls @ 100 mls/hr IV Q12 [facility] Last Admin: 07/15/16 08:20 Dose: 100 mls/hr Ceftazidime 1 gm/ Sodium (Chloride) 100 mls @ 200 mls/hr IVPB Q8 [facility] Last Admin: 07/15/16 08:18 Dose: 200 mls/hr Ipratropium [place] (Atrovent) 0.5 mg IH RQ6 [facility] Last Admin: 07/15/16 07:52 Dose: 0.5 mg Lactobacillus Acidophilus (Bacid Acidophilus) 1 cap PO BID [facility] Last Admin: 07/14/16 17:19 Dose: Not Given Lorazepam (Ativan) 1 mg IVP Q4 PRN PRN Reason: Anxiety Last Admin: 07/15/16 06:23 Dose: 1 mg Methimazole (Tapazole) 5 mg PO DAILY [facility] Last Admin: 07/14/16 08:53 Dose: 5 mg Morphine Sulfate (Morphine) 2 mg IVP Q2 PRN PRN Reason: Pain, moderate (4-7) Last Admin: 07/15/16 05:49 Dose: 2 mg Multi-Ingredient Cream (Hydrocerin Cream) 1 applic TOP BID [facility] Last Admin: 07/15/16 08:24 Dose: 1 applic Nitroglycerin (Nitro-Bid 2% Oint) 1 in TOP Q6 [facility] Last Admin: 07/15/16 04:20 Dose: Not Given Pantoprazole Sodium (Protonix Inj) 40 mg IVP DAILY [facility] Spironolactone (Aldactone) 25 mg PO DAILY [facility] Last Admin: 07/14/16 08:51 Dose: 25 mg Zolpidem Tartrate (Ambien) 5 mg PO HS PRN PRN Reason: Sleep Last Admin: 07/11/16 22:47 Dose: 5 mg - Labs Labs: 07/15/16 05:00 07/15/16 05:00 PT 11.2 SECONDS (9.6-11.2) 07/09/16 08:00 INR 1.08 (0.92-1.08) 07/09/16 08:00 APTT 27.7 SECONDS (23.3-32.5) 07/09/16 08:00
--- NOTE | 2016-07-15 10:53 | CP.CCUPN ---
<StevenchelleHeladio byrne T - Last Filed: 07/15/16 14:14> CCU Subjective - Physician Review Subjective (Free Text): Pt is seen and examined at bedside in the ICU. She did not have any acute events overnight, however she did show signs of respiratory distress this morning as well as c/o of SOB/dyspnea. She is currently intubated, but she had denied f/c/n/v/d/c, abdominal pain, or myalgias. CCU Objective - Vital Signs / Intake & Output Vital Signs (Last 4 hours): Vital Signs Temp Pulse Resp BP Pulse Ox 07/15/16 10:00 21 L 21 131/94 H 95 07/15/16 09:00 124 H 21 127/81 97 07/15/16 08:00 98.2 F 127 H 24 130/80 95 07/15/16 07:00 118 H 20 123/79 95 Intake and Output (Last 8hrs): Intake & Output 07/14/16 07/15/16 07/15/16 22:59 06:59 14:59 Intake Total 675 925 10 Output Total 500 60 Balance 675 425 -50 Intake: IV 10 Intake, Piggyback 350 600 Oral 0 Blood Product 325 325 Output: Urine 500 60 Urethral (Gutierrez) 500 60 - Physical Exam Physical Exam Limitations: Positive for: Other (currently intubated) Head: Positive for: Atraumatic, Swelling (R mandible, improving). Negative for : Ecchymosis Pupils: Positive for: PERRL. Negative for: Sluggish, Non-Reactive Extroacular Muscles: Positive for: EOMI. Negative for: Gaze Palsy, Entrapment Mouth: Positive for: Moist Mucous Membranes Pharnyx: Positive for: Normal Neck: Positive for: Trachea Midline. Negative for: MIDLINE TENDERNESS, Paraspinal Tenderness, JVD, Lymphadenopathy, Bruit Respiratory/Chest: Positive for: Good Air Exchange, Wheezes (mild expiratory), Decreased Breath Sounds, Rhonchi (minimally appreciated lower lobes). Negative for: Respiratory Distress, Accessory Muscle Use Cardiovascular: Positive for: Normal S1, S2, Peripheal Pulses Present, Tachycardic. Negative for: Murmurs, Irregular Rhythm Abdomen: Positive for: Normal Bowel Sounds. Negative for: Tenderness Upper Extremity: Positive for: NORMAL PULSES, Capillary Refill < 2s, Other (L arm presents w/o edema, normal pulses; Rt arm edema). Negative for: Cyanosis, Tenderness Lower Extremity: Positive for: Edema, NORMAL PULSES. Negative for: CALF TENDERNESS Neurological: Positive for: GCS=15, Other (full exam limited due to recent intubation) Skin: Positive for: Warm, Dry, Normal Color - Medications Active Medications: Active Medications Generic Name Dose Route Start Last Admin Trade Name Freq PRN Reason Stop Dose Admin Albuterol Sulfate 2.5 mg 07/13/16 14:00 07/15/16 07:52 Albuterol 0.083% Inhal Aby (2.5 Mg/3 Ml) Ud INH 2.5 mg RQ6 ANDREAS Administration Albuterol/Ipratropium 3 ml 07/14/16 09:31 07/14/16 17:31 Duoneb 3 Mg/0.5 Mg (3 Ml) Ud INH 3 ml RQ4 PRN Administration Shortness of Breath Alprazolam 0.25 mg 07/14/16 09:33 Xanax PO 07/21/16 09:34 Q12 PRN Anxiety Anastrozole 1 mg 07/07/16 09:00 07/14/16 08:52 Arimidex 1 Mg Tab PO 1 mg DAILY [facility]RE[facility] Administration Gabapentin 600 mg 07/06/16 17:00 07/15/16 00:31 Neurontin PO Not Given Q8 ANDREAS Linezolid 300 mls @ 300 mls/hr 07/06/16 21:00 07/15/16 08:21 Zyvox 600mg/300ml D5w IVPB 300 mls/hr Q12 [facility] Administration Trimethoprim/Sulfamethoxazole 500 mls @ 333.333 mls/hr 07/10/16 14:15 07/15/16 02:26 435 mg/ Dextrose IVPB 333.333 mls/hr Q12H [facility] Administration Methylprednisolone 40 mg/ 50 mls @ 100 mls/hr 07/12/16 09:00 07/15/16 08:20 Sodium Chloride IV 100 mls/hr Q12 [facility] Administration Ceftazidime 1 gm/ Sodium 100 mls @ 200 mls/hr 07/13/16 01:00 07/15/16 08:18 Chloride IVPB 200 mls/hr Q8 [facility]RE[facility] Administration Ipratropium [place] 0.5 mg 07/13/16 14:00 07/15/16 07:52 Atrovent IH 0.5 mg RQ6 [facility]RE[facility] Administration Lactobacillus Acidophilus 1 cap 07/06/16 17:00 07/14/16 17:19 Bacid Acidophilus PO Not Given BID ANDRE[facility] Lorazepam 1 mg 07/13/16 19:32 07/15/16 06:23 Ativan IVP 1 mg Q4 PRN Administration Anxiety Methimazole 5 mg 07/14/16 09:00 07/14/16 08:53 Tapazole PO 5 mg DAILY [facility] Administration Morphine Sulfate 2 mg 07/12/16 08:54 07/15/16 09:47 Morphine IVP 2 mg Q2 PRN Administration Pain, moderate (4-7) Multi-Ingredient Cream 1 applic 07/06/16 17:00 07/15/16 08:24 Hydrocerin Cream TOP 1 applic BID ANDREAS Administration Nitroglycerin 1 in 07/06/16 16:00 07/15/16 09:43 Nitro-Bid 2% Oint TOP 1 in Q6 [facility] Administration Pantoprazole Sodium 40 mg 07/16/16 09:00 Protonix Inj IVP DAILY [facility] Spironolactone 25 mg 07/07/16 09:00 07/14/16 08:51 Aldactone PO 25 mg DAILY [facility] Administration Zolpidem Tartrate 5 mg 07/06/16 11:55 07/11/16 22:47 Ambien PO 5 mg HS PRN Administration Sleep - Patient Studies Lab Studies: Lab Studies 07/15/16 07/14/16 Range/Units 05:00 08:15 WBC 5.9 (4.8-10.8) K/uL RBC 4.15 (3.80-5.20) Mil/uL Hgb 11.6 L D (12.0-16.0) g/dL Hct 35.8 (34.0-47.0) % MCV 86.4 (81.0-99.0) fl MCH 27.9 (27.0-31.0) pg MCHC 32.3 L (33.0-37.0) g/dL RDW 24.6 H (11.5-14.5) % Plt Count 94 L D (130-400) K/uL MPV 8.2 (7.2-11.7) fl Neut % (Auto) 90.1 H (50.0-75.0) % Lymph % (Auto) 5.2 L (20.0-40.0) % [place] % (Auto) 4.5 (0.0-10.0) % Eos % (Auto) 0.0 (0.0-4.0) % Baso % (Auto) 0.2 (0.0-2.0) % Neut # 5.3 (1.8-7.0) K/uL Lymph # 0.3 L (1.0-4.3) K/uL [place] # 0.3 (0.0-0.8) K/uL Eos # 0.0 (0.0-0.7) K/uL Baso # 0.0 (0.0-0.2) K/uL Sodium 135 (132-148) mmol/l Potassium 4.9 (3.6-5.0) MMOL/L Chloride 92 L (98-107) mmol/L Carbon Dioxide 33 H (22-30) mmol/L Anion Gap 15 (10-20) BUN 17 (7-17) mg/dl Creatinine 0.5 L (0.7-1.2) mg/dL Est GFR ( Amer) > 60 Est GFR (Non-Af Amer) > 60 Random Glucose 125 H (65-105) mg/dL Calcium 8.5 (8.4-10.2) mg/dL Total Bilirubin 0.4 (0.2-1.3) mg/dl AST 142 H D (14-36) U/L ALT 133 H D (9-52) U/L Alkaline Phosphatase 143 H D (38-126) U/L Total Protein 5.2 L (6.3-8.2) G/DL Albumin 2.7 L (3.5-5.0) g/dL Globulin 2.6 (2.2-3.9) gm/dL Albumin/Globulin Ratio 1.0 (1.0-2.1) TSH 3rd Generation 0.51 (0.46-4.68) mIU/ML Blood Type O NEGATIVE Antibody Screen Negative Crossmatch See Detail BBK History Checked Patient has bt Laboratory Results - last 24 hr 07/14/16 07/15/16 08:15 05:00 WBC 5.9 RBC 4.15 Hgb 11.6 L D Hct 35.8 MCV 86.4 MCH 27.9 MCHC 32.3 L RDW 24.6 H Plt Count 94 L D MPV 8.2 Neut % (Auto) 90.1 H Lymph % (Auto) 5.2 L [place] % (Auto) 4.5 Eos % (Auto) 0.0 Baso % (Auto) 0.2 Neut # 5.3 Lymph # 0.3 L [place] # 0.3 Eos # 0.0 Baso # 0.0 Sodium 135 Potassium 4.9 Chloride 92 L Carbon Dioxide 33 H Anion Gap 15 BUN 17 Creatinine 0.5 L Est GFR ( Amer) > 60 Est GFR (Non-Af Amer) > 60 Random Glucose 125 H Calcium 8.5 Total Bilirubin 0.4 AST 142 H D ALT 133 H D Alkaline Phosphatase 143 H D Total Protein 5.2 L Albumin 2.7 L Globulin 2.6 Albumin/Globulin Ratio 1.0 TSH 3rd Generation 0.51 Blood Type O NEGATIVE Antibody Screen Negative Crossmatch See Detail BBK History Checked Patient has bt Review of Systems - Review of Systems Review of Systems: see HPI Critical Care Progress Note - Ventilator Checklist Head of Bed 30 Degrees: Yes Daily Sedation Vacation: Yes Daily Assessment of Readiness to Wean: Yes Daily Spontaneous Breathing Trial: Yes PUD Prophalyxis: Yes DVT Prophylaxis: Yes Oral Care with Chlorhexidine Gluconate {CHG}: Yes Assessment/Plan - Assessment and Plan (Free Text) Plan: 66 yo F w PMHx of HTN, COPD, bilateral Breast cancer, h/o Hyperthyroidism is admitted to ICU for sob/dyspnea w/in setting of copd exacerbation 1) Acute bronchitis with chronic obstructive pulmonary disease (COPD) -Pt experiencing worsening respiratory function w dyspnea, sob, and tachycardia and was subsequently re intubated -Bronchial washings grew Stenotrophomonas Maltophilia, tx w Bactrim and Fortaz -Vent: PRVC AC- Rate 12, TV 400, PEEP 5, FiO2 70 -Bactrim 435mg IVPB Q12H -Fortaz 1g IVPB Q8H -Diflucan 200mg IVPB Daily -Spironolactone 25mg PO Daily -Ipratropium 0.5mg INH RQ6 -Methylprednisolone 40mg IV Q12H -Duoneb 3mL RQ4H PRN -f/u respiratory function 2) Anemia -Chronically low, has received 2u pRBC -h/h currently 11.6/35.8 -f/u labs -f/u s/s, though it might be difficult given her clinical presentation 3) Acute exacerbation of Systolic CHF -Echo (06/14): The systolic function is moderately impaired, EF 40-45 % dilated RV with mild/mod decrease RV function, diastolic inflow pattern is restrictive -Spironolactone 25mg PO Daily -f/u strict I&Os -f/u Daily Wt 4) VRE (vancomycin resistant enterococcus) culture positive -mandible osteomyelitis wound Cx+ resulted: VRE -Linezolid 600mg IVPB Q12H -f/u OMFS regarding presence/course of drains 5) Anxiety -Xanax 0.25mg PO Q12H 6) Hyperthyroidism -Methimazole 5mg PO BID <Wayne Turcios - Last Filed: 07/15/16 16:27> CCU Subjective - Physician Review Subjective (Free Text): Attestation: Patient seen and examined at the bedside with Resident Dr. Thomas Louie; and I agree with his outline of plans and management documented below as discussed on AM rounds reflecting my review of all applicable clinical data, and participation in the care of the patient throughout the day in ICU; today, July 15, 2016.
--- NOTE | 2016-07-15 10:54 | PCM.ANES ---
Anesthesia Emergent Intubation - Diagnosis Working Diagnosis:: Chronic respiratory failure, COPD, hypercapnia - Consult Reason for Consult:: respiratory failure - Pre-Intubation Vital Signs Blood Pressure: 134/85 Heart Rate: 123 Respiratory Rate: 30 O2 Sat: 98 FIO2: 100 Oxygen Delivery Method: Non-Rebreather Level Of Consciousness: Lethargic Intubation Meds Given: Propofol - Airway Management Oropharyngeal Area Suctioned: Yes PreOxygenation: 100 (ambu bag) Inhalation: No Rapid Sequence: No Cricoid Pressure: No Possible Aspiration: No - Method of Intubation Intubation Method: Oral ETT ETT Size: 7.5 Lipline@: 21 cm Easy: Yes (glidescope) Atramatic: Yes - Intubation Devices Cami Blade Size Used: 3 Simba Forcepts Used: No [place] Scope Used: Yes Fiber Optic Scope: No - Placement Confirmation Breath Sounds Present & Equal Bilaterally: Yes Gurgling Sounds Not Audible at Epigastrum: Yes Positive EtCO2: Yes Portable CXR: (recommended) Recommendations: Ventilator, Chest X Ray, ABG - Post-Intubation Vital Signs Blood Pressure: 134/85 Heart Rate: 107 Respiratory Rate: 14 O2 Sat: 100 FIO2: 100
[2016-07-15] MEDS ORDERED: Fentanyl Citrate 2,500 MCG in Dextrose 5% In Water 200 ML IV SCH (11:00)
--- NOTE | 2016-07-15 11:20 | CP.PCM.PN ---
Subjective - Date & Time of Evaluation Date of Evaluation: 07/15/16 Time of Evaluation: 11:20 - Subjective Subjective: Case discussed with soa integration developer . Interim events reviewed. Despite adequate oxygenation the patient exhibits significant dyspnea. Decision to re-intubate was agreed upon with the patient. Placed on mechanical ventilation and sedated with propofol. Remains on fentanyl patch for analgesia as well. Portable CXR repeated post intubation. Small volume of florez secretions aspirated from ETT. Breath sounds are present bilaterally w/o audible wheezing. Dependant edema still present, but is reduced significantly. No cyanosis, no dullness on chest percussion, no subcut emphysema. HR was 130+ sinus tach prior to intubation, down to 100BPM shortly after intubation. Plan is for tracheostomy and continued antibiotic therapy. Can begin to consider LTAC afterwards. Objective - Vital Signs/Intake and Output Vital Signs (last 24 hours): Temp Pulse Resp BP Pulse Ox 98.2 F 123 H 30 H 134/85 98 07/15/16 08:00 07/15/16 10:57 07/15/16 10:57 07/15/16 10:57 07/15/16 10:57 Intake and Output: 07/14/16 07/15/16 23:59 11:59 Intake Total 675 935 Output Total 560 Balance 675 375 - Medications Medications: Current Medications Albuterol Sulfate (Albuterol 0.083% Inhal Aby (2.5 Mg/3 Ml) Ud) 2.5 mg INH RQ6 [facility] Last Admin: 07/15/16 07:52 Dose: 2.5 mg Albuterol/Ipratropium (Duoneb 3 Mg/0.5 Mg (3 Ml) Ud) 3 ml INH RQ4 PRN PRN Reason: Shortness of Breath Last Admin: 07/14/16 17:31 Dose: 3 ml Alprazolam (Xanax) 0.25 mg PO Q12 PRN PRN Reason: Anxiety Stop: 07/21/16 09:34 Anastrozole (Arimidex 1 Mg Tab) 1 mg PO DAILY [facility] Last Admin: 07/14/16 08:52 Dose: 1 mg Gabapentin (Neurontin) 600 mg PO Q8 [facility] Last Admin: 07/15/16 00:31 Dose: Not Given Linezolid (Zyvox 600mg/300ml D5w) 300 mls @ 300 mls/hr IVPB Q12 [facility] Last Admin: 07/15/16 08:21 Dose: 300 mls/hr Trimethoprim/Sulfamethoxazole (435 mg/ Dextrose) 500 mls @ 333.333 mls/hr IVPB Q12H [facility] Last Admin: 07/15/16 02:26 Dose: 333.333 mls/hr Methylprednisolone 40 mg/ (Sodium Chloride) 50 mls @ 100 mls/hr IV Q12 [facility] Last Admin: 07/15/16 08:20 Dose: 100 mls/hr Ceftazidime 1 gm/ Sodium (Chloride) 100 mls @ 200 mls/hr IVPB Q8 [facility] Last Admin: 07/15/16 08:18 Dose: 200 mls/hr Fentanyl Citrate 2,500 mcg/ (Dextrose) 250 mls @ 0 mls/hr IV .Q0M [facility]; Per Protocol PRN Reason: Protocol Ipratropium [place] (Atrovent) 0.5 mg IH RQ6 [facility] Last Admin: 07/15/16 07:52 Dose: 0.5 mg Lactobacillus Acidophilus (Bacid Acidophilus) 1 cap PO BID [facility] Last Admin: 07/14/16 17:19 Dose: Not Given Lorazepam (Ativan) 1 mg IVP Q4 PRN PRN Reason: Anxiety Last Admin: 07/15/16 06:23 Dose: 1 mg Methimazole (Tapazole) 5 mg PO DAILY [facility] Last Admin: 07/14/16 08:53 Dose: 5 mg Morphine Sulfate (Morphine) 2 mg IVP Q2 PRN PRN Reason: Pain, moderate (4-7) Last Admin: 07/15/16 09:47 Dose: 2 mg Multi-Ingredient Cream (Hydrocerin Cream) 1 applic TOP BID [facility] Last Admin: 07/15/16 08:24 Dose: 1 applic Nitroglycerin (Nitro-Bid 2% Oint) 1 in TOP Q6 [facility] Last Admin: 07/15/16 09:43 Dose: 1 in Pantoprazole Sodium (Protonix Inj) 40 mg IVP DAILY [facility] Spironolactone (Aldactone) 25 mg PO DAILY [facility] Last Admin: 07/14/16 08:51 Dose: 25 mg Zolpidem Tartrate (Ambien) 5 mg PO HS PRN PRN Reason: Sleep Last Admin: 07/11/16 22:47 Dose: 5 mg - Labs Labs: 07/15/16 05:00 07/15/16 05:00 PT 11.2 SECONDS (9.6-11.2) 07/09/16 08:00 INR 1.08 (0.92-1.08) 07/09/16 08:00 APTT 27.7 SECONDS (23.3-32.5) 07/09/16 08:00 Assessment and Plan (1) Acute bronchitis with chronic obstructive pulmonary disease (COPD) Status: Acute (2) Hyperthyroidism Status: Chronic (3) Abscess Status: Acute (4) Hypokalemia Status: Acute
[2016-07-15 11:21] LABS: NEUTROPHIL 90 % (42-75); TOTAL CELLS COUNTED 100
--- NOTE | 2016-07-15 14:06 | RAD ---
PROCEDURE: CHEST RADIOGRAPH, 1 VIEW HISTORY: intubation COMPARISON: Comparison is made to the previous study dated 07/14/2016 FINDINGS: LUNGS: Interval appearance of hazy opacity at the right lower lung could represent atelectasis or acute aspiration. The ET tube is seen at appropriate position. PLEURA: Blunting of the right costophrenic angle is noted. CARDIOVASCULAR: The cardiac silhouette is mildly enlarged. OSSEOUS STRUCTURES: No significant abnormalities. VISUALIZED UPPER ABDOMEN: The NG tube seen extending to the abdomen. OTHER FINDINGS: Right jugular central line is seen in place. Postsurgical changes at the right axilla. Resection of the proximal portion of the right humerus is again noted. IMPRESSION: Interval appearance of moderate size heterogeneous opacity at the right lower lobe chest may represent atelectasis or acute aspiration pneumonia. Appropriate position of the support devices. .
--- NOTE | 2016-07-15 16:43 | PN ---
DATE: 07/15/2016 ROOM: 434, ICU SUBJECTIVE: This is a 66-year-old female with recent overt hyperthyroidism with underlying longstand ing hyperthyroidism related to Graves' disease and is now being followed closely for metabolic manage ment. Moreover, hemodynamically she has had overt congestive heart failure and acute exacerbation of COPD and currently is still on IV steroid therapy as given. Her latest chemistries showed a BUN of 17, sodium 135, potassium 4.9, chloride 92, CO2 of 33, glucose 125, and creatinine 0.5. So, at this time, we will continue the same low dose Tapazole given as 5 mg once daily with dinner as ordered. We will titrate incrementally as indicated to optimize metabolic control. We will follow and advise accordingly. Polly Vu MD cc: [id number] TT: 07/15/2016 16:42:34 Confirmation # [id number] Dictation # [id number] sn
[2016-07-15] MEDS ORDERED: Propofol 10 mg/ml Inj (20 ML) IV ONE (16:53)
--- NOTE | 2016-07-15 17:38 | CP.PCM.CON ---
<Abbi Franklin - Last Filed: 07/15/16 18:16> History of Present Illness - History of Present Illness History of Present Illness: GENERAL SURGERY CONSULT NOTE FOR DR. JULIO 66yoF with PMHx of COPD, bilateral breast cancer s/p chemo and radiation with respiratory failure, surgery is consulted for tracheostomy. She initially presented to the ED on 06/03/16 for bilateral leg edema for 1 week. She was found to have CHF. ECHO on 06/14 showed EF of 40-45%. She also underwent I&D of abscess by oromaxillofacial surgeon on 07/06. Bone scan showed possible osteomyelitis. She had a bronchoscopy on 07/07 which showed stenotrophomonas maltophilia. Patient currently on tube feeds. Hemoglobin yesterday was 8.5, she was transfused 2 units and today her hemoglobin is 11.6. Patient was intubated on 06/20, again on 07/09, extubated yesterday 07/14, but developed respiratory distress again and was reintubated today for the third time. Surgery is consulted for tracheostomy placement. Options were discussed with patient and daughter at bedside. Both patient and daughter agreed for tracheostomy. Patient is alert and awake and able to follow commands. Patient signed her own consent with daughter also verbally agreeing. Current vent settings: FiO2 70%, PEEP 5 PMHx: COPD, bilateral breast cancer s/p chemo and radiation 8 years ago, HTN, hyperthyroidism Surgeries: bilateral mastectomy, total shoulder replacement + removal, cervical and lumbar spinal surgery, cholecystectomy, tubal ligation, I&D for oral abscess Allergies: paper tape Social history: half a pack of cigarettes per day x 40 years, denies etoh, illicit drug use Review of Systems - Review of Systems All systems: reviewed and no additional remarkable complaints except (as per HPI ) Past Patient History - Infectious Disease Hx of Infectious Diseases: MRSA - Tetanus Immunizations Tetanus Immunization: Unknown - Past Medical History & Family History Past Medical History?: Yes - Past Social History Smoking Status: Current Some Days Smoker Chewing Tobacco Use: No Cigar Use: No Alcohol: Social Drugs: Denies - CARDIAC Hx Cardiac Disorders: Yes Hx Hypertension: Yes - PULMONARY Hx Respiratory Disorders: Yes Hx Asthma: Yes Hx Chronic Obstructive Pulmonary Disease (COPD): Yes Hx Pneumonia: Yes - NEUROLOGICAL Hx Neurological Disorder: Yes Other/Comment: peripheral neuropathy right lower extremity. - HEENT Hx HEENT Problems: Yes Other/Comment: recent right buccal abscess with possible involvement of the mandible - RENAL Hx Chronic Kidney Disease: No - ENDOCRINE/METABOLIC Hx Endocrine Disorders: Yes Hx Hyperthyroidism: Yes (on methimazole) - HEMATOLOGICAL/ONCOLOGICAL Hx Blood Disorders: Yes Hx Bruising: Yes Hx Human Immunodeficiency Virus (HIV): No - INTEGUMENTARY Hx Dermatological Problems: No - MUSCULOSKELETAL/RHEUMATOLOGICAL Hx Musculoskeletal Disorders: Yes (Multiple fractures) Hx Falls: Yes Hx Osteoporosis: Yes - GASTROINTESTINAL Hx Gastrointestinal Disorders: Yes Hx Gall Bladder Disease: Yes - GENITOURINARY/GYNECOLOGICAL Hx Genitourinary Disorders: No - PSYCHIATRIC Hx Psychophysiologic Disorder: No Hx Substance Use: No - SURGICAL HISTORY Hx Surgeries: Yes Hx Mastectomy: Yes (right in 1998; left in 2008) Hx Orthopedic Surgery: Yes (2003 rigtht shoulder prosthesis, removal of hardware 2013) Hx Tubal Ligation: Yes Other/Comment: shoulder and humerous replacement with joint space infection and eventual removal of hardware in right shoulder and chronic lymphedema of RUE, groin cyst removal, cervical spinal fusion 2007, lumbar spinal fusion 2007. - ANESTHESIA Hx Anesthesia: Yes Hx Anesthesia Reactions: No Hx Malignant Hyperthermia: No Meds Allergies/Adverse Reactions: Allergies Allergy/AdvReac Type Severity Reaction Status Date / Time paper tape Allergy RASH Uncoded 06/03/16 21:31 - Medications Medications: Current Medications Albuterol Sulfate (Albuterol 0.083% Inhal Aby (2.5 Mg/3 Ml) Ud) 2.5 mg INH RQ6 [facility] Last Admin: 07/15/16 13:45 Dose: 2.5 mg Albuterol/Ipratropium (Duoneb 3 Mg/0.5 Mg (3 Ml) Ud) 3 ml INH RQ4 PRN PRN Reason: Shortness of Breath Last Admin: 07/14/16 17:31 Dose: 3 ml Alprazolam (Xanax) 0.25 mg PO Q12 PRN PRN Reason: Anxiety Stop: 07/21/16 09:34 Anastrozole (Arimidex 1 Mg Tab) 1 mg PO DAILY [facility] Last Admin: 07/15/16 14:30 Dose: 1 mg Gabapentin (Neurontin) 600 mg PO Q8 [facility] Last Admin: 07/15/16 17:08 Dose: 600 mg Linezolid (Zyvox 600mg/300ml D5w) 300 mls @ 300 mls/hr IVPB Q12 [facility] Last Admin: 07/15/16 08:21 Dose: 300 mls/hr Trimethoprim/Sulfamethoxazole (435 mg/ Dextrose) 500 mls @ 333.333 mls/hr IVPB Q12H [facility] Last Admin: 07/15/16 14:53 Dose: 333.333 mls/hr Methylprednisolone 40 mg/ (Sodium Chloride) 50 mls @ 100 mls/hr IV Q12 [facility] Last Admin: 07/15/16 08:20 Dose: 100 mls/hr Ceftazidime 1 gm/ Sodium (Chloride) 100 mls @ 200 mls/hr IVPB Q8 [facility] Last Admin: 07/15/16 17:07 Dose: 200 mls/hr Fentanyl Citrate 2,500 mcg/ (Dextrose) 250 mls @ 0 mls/hr IV .Q0M [facility]; Per Protocol PRN Reason: Protocol Propofol (Diprivan) 100 mls @ 1.728 mls/hr IV .Q24H [facility]; 5 MCG/KG/MIN PRN Reason: Protocol Stop: 07/16/16 14:46 Last Titration: 07/15/16 11:40 Dose: 10 mcg/kg/min Ipratropium [place] (Atrovent) 0.5 mg IH RQ6 [facility] Last Admin: 07/15/16 13:45 Dose: 0.5 mg Lactobacillus Acidophilus (Bacid Acidophilus) 1 cap PO BID [facility] Last Admin: 07/15/16 17:04 Dose: 1 cap Lorazepam (Ativan) 1 mg IVP Q4 PRN PRN Reason: Anxiety Last Admin: 07/15/16 06:23 Dose: 1 mg Methimazole (Tapazole) 5 mg PO DAILY [facility] Last Admin: 07/15/16 14:32 Dose: 5 mg Morphine Sulfate (Morphine) 2 mg IVP Q2 PRN PRN Reason: Pain, moderate (4-7) Last Admin: 07/15/16 09:47 Dose: 2 mg Multi-Ingredient Cream (Hydrocerin Cream) 1 applic TOP BID [facility] Last Admin: 07/15/16 17:11 Dose: 1 applic Nitroglycerin (Nitro-Bid 2% Oint) 1 in TOP Q6 [facility] Last Admin: 07/15/16 17:09 Dose: 1 in Pantoprazole Sodium (Protonix Inj) 40 mg IVP DAILY [facility] Spironolactone (Aldactone) 25 mg PO DAILY [facility] Last Admin: 07/15/16 14:31 Dose: 25 mg Zolpidem Tartrate (Ambien) 5 mg PO HS PRN PRN Reason: Sleep Last Admin: 07/11/16 22:47 Dose: 5 mg Physical Exam - Constitutional Appears: Non-toxic, No Acute Distress, Chronically Ill - Head Exam Head Exam: ATRAUMATIC, NORMAL INSPECTION - Eye Exam Eye Exam: EOMI, Normal appearance - Respiratory Exam Respiratory Exam: NORMAL BREATHING PATTERN (on mechanical ventilation). absent : Respiratory Distress Additional comments: Right chest PICC - Cardiovascular Exam Cardiovascular Exam: Tachycardia - GI/Abdominal Exam GI & Abdominal Exam: Soft. absent: Distended, Tenderness - Extremities Exam Extremities exam: Positive for: normal inspection. Negative for: calf tenderness, pedal edema - Neurological Exam Neurological exam: Alert - Psychiatric Exam Psychiatric exam: Normal Affect, Normal Mood - Skin Skin Exam: Dry, Warm Results - Vital Signs Recent Vital Signs: Last Vital Signs Temp 98.8 F 07/15/16 12:00 Pulse 97 H 07/15/16 15:00 Resp 12 07/15/16 15:00 BP 104/73 07/15/16 15:00 Pulse Ox 100 07/15/16 15:00 - Labs Result Diagrams: 07/15/16 05:00 07/15/16 05:00 Labs: Laboratory Results - last 24 hr 07/14/16 07/15/16 08:15 05:00 WBC 5.9 RBC 4.15 Hgb 11.6 L D Hct 35.8 MCV 86.4 MCH 27.9 MCHC 32.3 L RDW 24.6 H Plt Count 94 L D MPV 8.2 Neut % (Auto) 90.1 H Lymph % (Auto) 5.2 L [place] % (Auto) 4.5 Eos % (Auto) 0.0 Baso % (Auto) 0.2 Neut # 5.3 Lymph # 0.3 L [place] # 0.3 Eos # 0.0 Baso # 0.0 Neutrophils % (Manual) 90 H Lymphocytes % (Manual) 8 L Monocytes % (Manual) 2 Platelet Estimate Decreased L Hypochromasia (manual) Slight Anisocytosis (manual) Marked Schistocytes Slight Sodium 135 Potassium 4.9 Chloride 92 L Carbon Dioxide 33 H Anion Gap 15 BUN 17 Creatinine 0.5 L Est GFR ( Amer) > 60 Est GFR (Non-Af Amer) > 60 Random Glucose 125 H Calcium 8.5 Total Bilirubin 0.4 AST 142 H D ALT 133 H D Alkaline Phosphatase 143 H D Total Protein 5.2 L Albumin 2.7 L Globulin 2.6 Albumin/Globulin Ratio 1.0 TSH 3rd Generation 0.51 Blood Type O NEGATIVE Antibody Screen Negative Crossmatch See Detail BBK History Checked Patient has bt Assessment & Plan - Assessment and Plan (Free Text) Assessment: 66yoF with PMHx of COPD, bilateral breast cancer s/p chemo and radiation with respiratory failure, patient is currently intubated for the 3rd time this hospital admission, surgery is consulted for tracheostomy - VSS, Afebrile - Hemoglobin 11.6 today after 2 units yesterday - Discussed options with patient and daughter, both agree for trach - Written consent obtained and in the chart - Plan for OR for tracheostomy tomorrow - Hold tube feeds at midnight - Needs cardiac clearance prior to surgery - Last ECHO on 06/14/16 showed EF 40-45% - Discussed plan with Dr. Sumanth Franklin PGY-2 <Benny Julio - Last Filed: 07/15/16 20:42> History of Present Illness - History of Present Illness History of Present Illness: Patient was seen and examined at the bedside. Agree with resident's note above. Meds - Medications Medications: Current Medications Albuterol Sulfate (Albuterol 0.083% Inhal Aby (2.5 Mg/3 Ml) Ud) 2.5 mg INH RQ6 [facility] Last Admin: 07/15/16 19:23 Dose: 2.5 mg Albuterol/Ipratropium (Duoneb 3 Mg/0.5 Mg (3 Ml) Ud) 3 ml INH RQ4 PRN PRN Reason: Shortness of Breath Last Admin: 07/14/16 17:31 Dose: 3 ml Alprazolam (Xanax) 0.25 mg PO Q12 PRN PRN Reason: Anxiety Stop: 07/21/16 09:34 Anastrozole (Arimidex 1 Mg Tab) 1 mg PO DAILY [facility] Last Admin: 07/15/16 14:30 Dose: 1 mg Gabapentin (Neurontin) 600 mg PO Q8 [facility] Last Admin: 07/15/16 17:08 Dose: 600 mg Linezolid (Zyvox 600mg/300ml D5w) 300 mls @ 300 mls/hr IVPB Q12 [facility] Last Admin: 07/15/16 08:21 Dose: 300 mls/hr Trimethoprim/Sulfamethoxazole (435 mg/ Dextrose) 500 mls @ 333.333 mls/hr IVPB Q12H [facility] Last Admin: 07/15/16 14:53 Dose: 333.333 mls/hr Methylprednisolone 40 mg/ (Sodium Chloride) 50 mls @ 100 mls/hr IV Q12 [facility] Last Admin: 07/15/16 08:20 Dose: 100 mls/hr Ceftazidime 1 gm/ Sodium (Chloride) 100 mls @ 200 mls/hr IVPB Q8 [facility] Last Admin: 07/15/16 17:07 Dose: 200 mls/hr Fentanyl Citrate 2,500 mcg/ (Dextrose) 250 mls @ 0 mls/hr IV .Q0M [facility]; Per Protocol PRN Reason: Protocol Propofol (Diprivan) 100 mls @ 1.728 mls/hr IV .Q24H [facility]; 5 MCG/KG/MIN PRN Reason: Protocol Stop: 07/16/16 14:46 Last Titration: 07/15/16 11:40 Dose: 10 mcg/kg/min Ipratropium [place] (Atrovent) 0.5 mg IH RQ6 [facility] Last Admin: 07/15/16 19:23 Dose: 0.5 mg Lactobacillus Acidophilus (Bacid Acidophilus) 1 cap PO BID [facility] Last Admin: 07/15/16 17:04 Dose: 1 cap Lorazepam (Ativan) 1 mg IVP Q4 PRN PRN Reason: Anxiety Last Admin: 07/15/16 06:23 Dose: 1 mg Methimazole (Tapazole) 5 mg PO DAILY [facility] Last Admin: 07/15/16 14:32 Dose: 5 mg Morphine Sulfate (Morphine) 2 mg IVP Q2 PRN PRN Reason: Pain, moderate (4-7) Last Admin: 07/15/16 09:47 Dose: 2 mg Multi-Ingredient Cream (Hydrocerin Cream) 1 applic TOP BID [facility] Last Admin: 07/15/16 17:11 Dose: 1 applic Nitroglycerin (Nitro-Bid 2% Oint) 1 in TOP Q6 [facility] Last Admin: 07/15/16 17:09 Dose: 1 in Pantoprazole Sodium (Protonix Inj) 40 mg IVP DAILY [facility] Spironolactone (Aldactone) 25 mg PO DAILY [facility] Last Admin: 07/15/16 14:31 Dose: 25 mg Zolpidem Tartrate (Ambien) 5 mg PO HS PRN PRN Reason: Sleep Last Admin: 07/11/16 22:47 Dose: 5 mg Results - Vital Signs Recent Vital Signs: Last Vital Signs Temp 98.0 F 07/15/16 16:00 Pulse 107 H 07/15/16 18:00 Resp 17 07/15/16 18:00 BP 105/47 L 07/15/16 18:00 Pulse Ox 100 07/15/16 18:00 - Labs Result Diagrams: 07/15/16 05:00 07/15/16 05:00 Labs: Laboratory Results - last 24 hr 07/14/16 07/15/16 08:15 05:00 WBC 5.9 RBC 4.15 Hgb 11.6 L D Hct 35.8 MCV 86.4 MCH 27.9 MCHC 32.3 L RDW 24.6 H Plt Count 94 L D MPV 8.2 Neut % (Auto) 90.1 H Lymph % (Auto) 5.2 L [place] % (Auto) 4.5 Eos % (Auto) 0.0 Baso % (Auto) 0.2 Neut # 5.3 Lymph # 0.3 L [place] # 0.3 Eos # 0.0 Baso # 0.0 Neutrophils % (Manual) 90 H Lymphocytes % (Manual) 8 L Monocytes % (Manual) 2 Platelet Estimate Decreased L Hypochromasia (manual) Slight Anisocytosis (manual) Marked Schistocytes Slight Sodium 135 Potassium 4.9 Chloride 92 L Carbon Dioxide 33 H Anion Gap 15 BUN 17 Creatinine 0.5 L Est GFR ( Amer) > 60 Est GFR (Non-Af Amer) > 60 Random Glucose 125 H Calcium 8.5 Total Bilirubin 0.4 AST 142 H D ALT 133 H D Alkaline Phosphatase 143 H D Total Protein 5.2 L Albumin 2.7 L Globulin 2.6 Albumin/Globulin Ratio 1.0 TSH 3rd Generation 0.51 Blood Type O NEGATIVE Antibody Screen Negative Crossmatch See Detail BBK History Checked Patient has bt Assessment & Plan - Assessment and Plan (Free Text) Assessment: 66 y.o. female with ventilator dependent respiratory failure Plan: - Will hold off on tracheostomy until FiO2 is titrated down from 70% - Continue tube feeds - Cardiac clearance prior to surgery - Will follow - Continue care as per ICU team
[2016-07-16] MEDS: Albuterol 0.083% Inhal Sol (2.5 mg/3 mL) UD INH SCH (01:03)
[2016-07-16] MEDS: Ipratropium 0.02% Inhal Soln (0.5 mg/2.5 ml) UD IH SCH (01:03)
[2016-07-16] MEDS: DEXTROSE 5% IVPB SCH ×2 (02:55→15:06)
[2016-07-16] MEDS: SULFAMETHOXAZOLE IVPB SCH ×2 (02:55→15:06)
[2016-07-16] MEDS: WATER IVPB SCH ×2 (02:55→15:06)
[2016-07-16] MEDS: TRIMETHOPRIM IVPB SCH ×2 (02:55→15:06)
[2016-07-16] MEDS: Nitroglycerin 2% 1GM UD TOP SCH ×4 (04:16→22:46)
[2016-07-16 04:53] LABS: ABG ALLEN TEST YES; ABG MECHANICAL RATE 12; ARTERIAL BLOOD GAS HCO3 33.1 mmol/L (21-28); ARTERIAL BLOOD GAS MODE A/C; ARTERIAL BLOOD GAS O2 CAPACITY 15.7 mL/dL (16-24); ARTERIAL BLOOD GAS O2 CONTENT 15.6 ML/dL (15-23); ARTERIAL BLOOD GAS PO2 242 mm/Hg (80-100); ARTERIAL BLOOD HGB O2 SAT 97.2 % (95.0-98.0); ATERIAL BLOOD GAS PEEP 5; CARBOXYHEMOGLOBIN 1.4 % (0.5-1.5); HHB 0.4 % (0.0-5.0); METHEMOGLOBIN 0.9 % (0.0-3.0)
[2016-07-16 06:55] LABS: BASO % 0.1 % (0.0-2.0); HEMATOCRIT 33.4 % (34.0-47.0); LYMPH # 0.2 K/uL (1.0-4.3); LYMPH % 5.7 % (20.0-40.0); MEAN CELL VOLUME 85.8 fl (81.0-99.0); MEAN CORPUSCULAR HEMOGLOBIN 27.8 pg (27.0-31.0); MEAN CORPUSCULAR HGB CONC 32.4 g/dL (33.0-37.0); MEAN PLATELET VOLUME 8.2 fl (7.2-11.7); MONO # 0.2 K/uL (0.0-0.8); MONO % 5.2 % (0.0-10.0); NEUT # 3.4 K/uL (1.8-7.0); NRBC % 0.7 % (0.0-0.0); RED CELL DISTRIBUTION WIDTH 24.9 % (11.5-14.5); WHITE BLOOD COUNT 3.8 K/uL (4.8-10.8)
[2016-07-16 07:22] LABS: ALKALINE PHOSPHATASE 119 U/L (38-126); ALT/SGPT 117 U/L (9-52); AST/SGOT 77 U/L (14-36); BILIRUBIN,TOTAL 0.1 mg/dl (0.2-1.3); BLOOD UREA NITROGEN 13 mg/dl (7-17); CALCIUM 8.2 mg/dL (8.4-10.2); CARBON DIOXIDE 33 mmol/L (22-30); CHLORIDE 93 mmol/L (98-107); GFR AFRICAN-AMERICAN > 60; GLUCOSE,RANDOM 141 mg/dL (65-105); POTASSIUM 4.3 MMOL/L (3.6-5.0); SODIUM 136 mmol/l (132-148); TOTAL PROTEIN 4.6 G/DL (6.3-8.2)
--- NOTE | 2016-07-16 07:41 | CP.CCUPN ---
CCU Subjective - Physician Review Subjective (Free Text): Pt is seen and examined at bedside in the ICU. She did not have any acute events overnight, however she does c/o SOB/dyspnea despite appropriate lab values while being intubated. She had denied f/c/n/v/d/c, abdominal pain, or myalgias. CCU Objective - Vital Signs / Intake & Output Vital Signs (Last 4 hours): Vital Signs Temp Pulse Resp BP Pulse Ox 07/16/16 07:30 98.4 F 07/16/16 06:00 96 H 13 106/65 100 07/16/16 05:00 96 H 14 103/64 100 07/16/16 04:00 97.7 F 99 H 14 107/67 100 Intake and Output (Last 8hrs): Intake & Output 07/15/16 07/16/16 07/16/16 22:59 06:59 14:59 Intake Total 567 820 Output Total 720 1600 Balance -153 -780 Intake: IV 120 Intake, Piggyback 227 300 Oral 140 Tube Feeding 80 320 Free Water Flush 200 Output: Urine 720 1600 Urethral (Gutierrez) 720 1600 Other: # Bowel Movements 1 - Physical Exam Head: Positive for: Atraumatic, Swelling (R mandible, improving). Negative for : Ecchymosis Pupils: Positive for: PERRL. Negative for: Sluggish, Non-Reactive Extroacular Muscles: Positive for: EOMI. Negative for: Gaze Palsy, Entrapment Conjunctiva: Positive for: Normal Mouth: Positive for: Moist Mucous Membranes Neck: Positive for: Trachea Midline. Negative for: MIDLINE TENDERNESS, Paraspinal Tenderness, JVD, Lymphadenopathy, Bruit Respiratory/Chest: Positive for: Good Air Exchange, Decreased Breath Sounds. Negative for: Respiratory Distress, Accessory Muscle Use Cardiovascular: Positive for: Normal S1, S2, Peripheal Pulses Present, Tachycardic. Negative for: Murmurs, Irregular Rhythm Abdomen: Positive for: Normal Bowel Sounds. Negative for: Tenderness Upper Extremity: Positive for: NORMAL PULSES, Capillary Refill < 2s, Other (L arm presents w/o edema, normal pulses; Rt arm edema). Negative for: Cyanosis, Tenderness Lower Extremity: Positive for: Edema, NORMAL PULSES. Negative for: CALF TENDERNESS Neurological: Positive for: GCS=15, Other (full exam limited due to recent intubation) Skin: Positive for: Warm, Dry, Normal Color Psychiatric: Positive for: Alert, Oriented x 3 - Medications Active Medications: Active Medications Generic Name Dose Route Start Last Admin Trade Name Freq PRN Reason Stop Dose Admin Albuterol/Ipratropium 3 ml 07/14/16 09:31 07/14/16 17:31 Duoneb 3 Mg/0.5 Mg (3 Ml) Ud INH 3 ml RQ4 PRN Administration Shortness of Breath Alprazolam 0.25 mg 07/14/16 09:33 Xanax PO 07/21/16 09:34 Q12 PRN Anxiety Anastrozole 1 mg 07/07/16 09:00 07/15/16 14:30 Arimidex 1 Mg Tab PO 1 mg DAILY ANDREAS Administration Gabapentin 600 mg 07/06/16 17:00 07/16/16 00:32 Neurontin PO 600 mg Q8 ANDREAS Administration Linezolid 300 mls @ 300 mls/hr 07/06/16 21:00 07/15/16 21:45 Zyvox 600mg/300ml D5w IVPB 300 mls/hr Q12 ANDREAS Administration Trimethoprim/Sulfamethoxazole 500 mls @ 333.333 mls/hr 07/10/16 14:15 07/16/16 02:55 435 mg/ Dextrose IVPB 333.333 mls/hr Q12H ANDREAS Administration Methylprednisolone 40 mg/ 50 mls @ 100 mls/hr 07/12/16 09:00 07/15/16 21:08 Sodium Chloride IV 100 mls/hr Q12 ANDREAS Administration Ceftazidime 1 gm/ Sodium 100 mls @ 200 mls/hr 07/13/16 01:00 07/16/16 00:33 Chloride IVPB 200 mls/hr Q8 ANDREAS Administration Fentanyl Citrate 2,500 mcg/ 250 mls @ 0 mls/hr 07/15/16 11:00 Dextrose IV .Q0M ANDREAS Protocol Per Protocol Propofol 100 mls @ 1.728 mls/hr 07/15/16 14:45 07/15/16 11:40 Diprivan IV 07/16/16 14:46 10 mcg/kg/min .Q24H ANDREAS Titration Protocol 5 MCG/KG/MIN Lactobacillus Acidophilus 1 cap 07/06/16 17:00 07/15/16 17:04 Bacid Acidophilus PO 1 cap BID ANDREAS Administration Lorazepam 1 mg 07/13/16 19:32 07/15/16 06:23 Ativan IVP 1 mg Q4 PRN Administration Anxiety Methimazole 5 mg 07/14/16 09:00 07/15/16 14:32 Tapazole PO 5 mg DAILY ANDREAS Administration Morphine Sulfate 2 mg 07/12/16 08:54 07/16/16 00:31 Morphine IVP 2 mg Q2 PRN Administration Pain, moderate (4-7) Multi-Ingredient Cream 1 applic 07/06/16 17:00 07/15/16 17:11 Hydrocerin Cream TOP 1 applic BID ANDREAS Administration Nitroglycerin 1 in 07/06/16 16:00 07/16/16 04:16 Nitro-Bid 2% Oint TOP 1 in Q6 ANDREAS Administration Pantoprazole Sodium 40 mg 07/16/16 09:00 Protonix Inj IVP DAILY ANDREAS Spironolactone 25 mg 07/07/16 09:00 07/15/16 14:31 Aldactone PO 25 mg DAILY ANDREAS Administration Zolpidem Tartrate 5 mg 07/06/16 11:55 07/11/16 22:47 Ambien PO 5 mg HS PRN Administration Sleep - Patient Studies Lab Studies: Lab Studies 07/16/16 07/16/16 07/15/16 Range/Units 06:40 04:50 05:00 WBC 3.8 L (4.8-10.8) K/uL RBC 3.89 (3.80-5.20) Mil/uL Hgb 10.8 L (12.0-16.0) g/dL Hct 33.4 L (34.0-47.0) % MCV 85.8 (81.0-99.0) fl MCH 27.8 (27.0-31.0) pg MCHC 32.4 L (33.0-37.0) g/dL RDW 24.9 H (11.5-14.5) % Plt Count 89 L (130-400) K/uL MPV 8.2 (7.2-11.7) fl Neut % (Auto) 89.0 H (50.0-75.0) % Lymph % (Auto) 5.7 L (20.0-40.0) % [place] % (Auto) 5.2 (0.0-10.0) % Eos % (Auto) 0.0 (0.0-4.0) % Baso % (Auto) 0.1 (0.0-2.0) % Neut # 3.4 (1.8-7.0) K/uL Lymph # 0.2 L (1.0-4.3) K/uL [place] # 0.2 (0.0-0.8) K/uL Eos # 0.0 (0.0-0.7) K/uL Baso # 0.0 (0.0-0.2) K/uL Neutrophils % (Manual) 90 H (42-75) % Lymphocytes % (Manual) 8 L (20-50) % Monocytes % (Manual) 2 (0-10) % Platelet Estimate Decreased L (NORMAL) Hypochromasia (manual) Slight Anisocytosis (manual) Marked Schistocytes Slight pCO2 60 H (35-45) mm/Hg pO2 242 H (80-100) mm/Hg HCO3 33.1 H (21-28) mmol/L ABG pH 7.40 (7.35-7.45) ABG Total CO2 39.0 H (22-28) mmol/L ABG O2 Saturation 99.6 H (95-98) % ABG O2 Content 15.6 (15-23) ML/dL ABG Base Excess 10.5 H (-2.0-3.0) mmol/L ABG Hemoglobin 11.0 L (11.7-17.4) g/dL ABG Carboxyhemoglobin 1.4 (0.5-1.5) % POC ABG HHb (Measured) 0.4 (0.0-5.0) % ABG Methemoglobin 0.9 (0.0-3.0) % ABG O2 Capacity 15.7 L (16-24) mL/dL Tawanda Test Yes A-a O2 Difference 182.0 mm/Hg Hgb O2 Saturation 97.2 (95.0-98.0) % Vent Mode A/c Mechanical Rate 12 FiO2 70.0 % Tidal Volume 400 PEEP 5 Blood Gas Notified Time 454 Sodium 136 (132-148) mmol/l Potassium 4.3 (3.6-5.0) MMOL/L Chloride 93 L (98-107) mmol/L Carbon Dioxide 33 H (22-30) mmol/L Anion Gap 14 (10-20) BUN 13 (7-17) mg/dl Creatinine 0.3 L (0.7-1.2) mg/dL Est GFR ( Amer) > 60 Est GFR (Non-Af Amer) > 60 Random Glucose 141 H (65-105) mg/dL Calcium 8.2 L (8.4-10.2) mg/dL Total Bilirubin 0.1 L (0.2-1.3) mg/dl AST 77 H D (14-36) U/L ALT 117 H (9-52) U/L Alkaline Phosphatase 119 (38-126) U/L Total Protein 4.6 L (6.3-8.2) G/DL Albumin 2.3 L (3.5-5.0) g/dL Globulin 2.3 (2.2-3.9) gm/dL Albumin/Globulin Ratio 1.0 (1.0-2.1) Laboratory Results - last 24 hr 07/15/16 07/16/16 07/16/16 05:00 04:50 06:40 WBC 3.8 L RBC 3.89 Hgb 10.8 L Hct 33.4 L MCV 85.8 MCH 27.8 MCHC 32.4 L RDW 24.9 H Plt Count 89 L MPV 8.2 Neut % (Auto) 89.0 H Lymph % (Auto) 5.7 L [place] % (Auto) 5.2 Eos % (Auto) 0.0 Baso % (Auto) 0.1 Neut # 3.4 Lymph # 0.2 L [place] # 0.2 Eos # 0.0 Baso # 0.0 Neutrophils % (Manual) 90 H Lymphocytes % (Manual) 8 L Monocytes % (Manual) 2 Platelet Estimate Decreased L Hypochromasia (manual) Slight Anisocytosis (manual) Marked Schistocytes Slight pCO2 60 H pO2 242 H HCO3 33.1 H ABG pH 7.40 ABG Total CO2 39.0 H ABG O2 Saturation 99.6 H ABG O2 Content 15.6 ABG Base Excess 10.5 H ABG Hemoglobin 11.0 L ABG Carboxyhemoglobin 1.4 POC ABG HHb (Measured) 0.4 ABG Methemoglobin 0.9 ABG O2 Capacity 15.7 L Tawanda Test Yes A-a O2 Difference 182.0 Hgb O2 Saturation 97.2 Vent Mode A/c Mechanical Rate 12 FiO2 70.0 Tidal Volume 400 PEEP 5 Blood Gas Notified Time 454 Sodium 136 Potassium 4.3 Chloride 93 L Carbon Dioxide 33 H Anion Gap 14 BUN 13 Creatinine 0.3 L Est GFR ( Amer) > 60 Est GFR (Non-Af Amer) > 60 Random Glucose 141 H Calcium 8.2 L Total Bilirubin 0.1 L AST 77 H D ALT 117 H Alkaline Phosphatase 119 Total Protein 4.6 L Albumin 2.3 L Globulin 2.3 Albumin/Globulin Ratio 1.0 Review of Systems - Review of Systems Review of Systems: see HPI Critical Care Progress Note - Ventilator Checklist Head of Bed 30 Degrees: Yes Daily Sedation Vacation: Yes Daily Assessment of Readiness to Wean: Yes Daily Spontaneous Breathing Trial: Yes PUD Prophalyxis: Yes DVT Prophylaxis: Yes Oral Care with Chlorhexidine Gluconate {CHG}: Yes - Vent Settings MODE:: PRVC TIDAL VOLUME:: 400 RESP RATE:: 12 FIO2:: 40 PEEP:: 5 - Nutrition Nutrition: Nutrition Category Date Time Status NPO Diet [DIET] Diets 07/16/16 Breakfast Active Assessment/Plan - Assessment and Plan (Free Text) Plan: 66 yo F w PMHx of HTN, COPD, bilateral Breast cancer, h/o Hyperthyroidism is admitted to ICU for sob/dyspnea w/in setting of copd exacerbation 1) Acute bronchitis with chronic obstructive pulmonary disease (COPD) -Intubated due to repeated worsening respiratory function w dyspnea, sob, and tachycardia -Bronchial washings grew Stenotrophomonas Maltophilia, tx w Bactrim and Fortaz -Vent: PRVC AC- Rate 12, TV 400, PEEP 5, FiO2 40 -Bactrim 435mg IVPB Q12H -Fortaz 1g IVPB Q8H -Diflucan 200mg IVPB Daily -Spironolactone 25mg PO Daily -Ipratropium 0.5mg INH RQ6 -Methylprednisolone 40mg IV Q12H -Duoneb 3mL RQ4H PRN -Plan for trache after FiO2 is weaned to appropriate levels -f/u respiratory function 2) Chronic Pain -Intermittent pain experienced near R shoulder, R upper chest, R anterior aspect of neck -Not well controlled with morphine, not well controlled w fentanyl patch, but previously well controlled w fentanyl drip -Fentanyl Drip -f/u pain levels, Vitals, Respiratory function 3) Anemia -Chronically low, has received 2u pRBC -h/h currently 10.8/33.4 -f/u labs -f/u s/s, though it might be difficult given her clinical presentation 4) Acute exacerbation of Systolic CHF -Echo (06/14): The systolic function is moderately impaired, EF 40-45 % dilated RV with mild/mod decrease RV function, diastolic inflow pattern is restrictive -Spironolactone 25mg PO Daily -f/u strict I&Os -f/u Daily Wt 5) VRE (vancomycin resistant enterococcus) culture positive -mandible osteomyelitis wound Cx+ resulted: VRE -Linezolid 600mg IVPB Q12H -f/u OMFS regarding presence/course of drains 6) Anxiety -Ativan 1mg IVP Q4H PRN 7) Hyperthyroidism -Methimazole 5mg PO BID
[2016-07-16] MEDS: Albuterol-Ipratrop 3 mg / 0.5 (3 ml) UD INH PRN (07:43)
--- NOTE | 2016-07-16 07:56 | CP.PCM.PN ---
<Abbi Franklin - Last Filed: 07/16/16 07:54> Subjective - Date & Time of Evaluation Date of Evaluation: 07/16/16 Time of Evaluation: 06:45 - Subjective Subjective: GENERAL SURGERY PROGRESS NOTE FOR DR. JULIO Patient seen and examined in the ICU. She remains intubated and lightly sedated with FiO2 70%. She shakes her head no that she does not have any pain. Will hold off tracheostomy for now until she can be cleared by cardiology and until the FiO2 can be titrated down. Objective - Vital Signs/Intake and Output Vital Signs (last 24 hours): Temp Pulse Resp BP Pulse Ox 98.4 F 96 H 13 106/65 100 07/16/16 07:30 07/16/16 06:00 07/16/16 06:00 07/16/16 06:00 07/16/16 06:00 Intake and Output: 07/16/16 07/16/16 06:59 18:59 Intake Total 1107 Output Total 1600 Balance -493 - Medications Medications: Current Medications Albuterol/Ipratropium (Duoneb 3 Mg/0.5 Mg (3 Ml) Ud) 3 ml INH RQ4 PRN PRN Reason: Shortness of Breath Last Admin: 07/16/16 07:43 Dose: 3 ml Alprazolam (Xanax) 0.25 mg PO Q12 PRN PRN Reason: Anxiety Stop: 07/21/16 09:34 Anastrozole (Arimidex 1 Mg Tab) 1 mg PO DAILY [facility] Last Admin: 07/15/16 14:30 Dose: 1 mg Gabapentin (Neurontin) 600 mg PO Q8 [facility] Last Admin: 07/16/16 00:32 Dose: 600 mg Linezolid (Zyvox 600mg/300ml D5w) 300 mls @ 300 mls/hr IVPB Q12 ANDREAS Last Admin: 07/15/16 21:45 Dose: 300 mls/hr Trimethoprim/Sulfamethoxazole (435 mg/ Dextrose) 500 mls @ 333.333 mls/hr IVPB Q12H [facility] Last Admin: 07/16/16 02:55 Dose: 333.333 mls/hr Methylprednisolone 40 mg/ (Sodium Chloride) 50 mls @ 100 mls/hr IV Q12 [facility] Last Admin: 07/15/16 21:08 Dose: 100 mls/hr Ceftazidime 1 gm/ Sodium (Chloride) 100 mls @ 200 mls/hr IVPB Q8 [facility] Last Admin: 07/16/16 00:33 Dose: 200 mls/hr Fentanyl Citrate 2,500 mcg/ (Dextrose) 250 mls @ 0 mls/hr IV .Q0M ANDREAS; Per Protocol PRN Reason: Protocol Propofol (Diprivan) 100 mls @ 1.728 mls/hr IV .Q24H ANDREAS; 5 MCG/KG/MIN PRN Reason: Protocol Stop: 07/16/16 14:46 Last Titration: 07/15/16 11:40 Dose: 10 mcg/kg/min Lactobacillus Acidophilus (Bacid Acidophilus) 1 cap PO BID [facility] Last Admin: 07/15/16 17:04 Dose: 1 cap Lorazepam (Ativan) 1 mg IVP Q4 PRN PRN Reason: Anxiety Last Admin: 07/15/16 06:23 Dose: 1 mg Methimazole (Tapazole) 5 mg PO DAILY [facility] Last Admin: 07/15/16 14:32 Dose: 5 mg Morphine Sulfate (Morphine) 2 mg IVP Q2 PRN PRN Reason: Pain, moderate (4-7) Last Admin: 07/16/16 07:40 Dose: 2 mg Multi-Ingredient Cream (Hydrocerin Cream) 1 applic TOP BID [facility] Last Admin: 07/15/16 17:11 Dose: 1 applic Nitroglycerin (Nitro-Bid 2% Oint) 1 in TOP Q6 [facility] Last Admin: 07/16/16 04:16 Dose: 1 in Pantoprazole Sodium (Protonix Inj) 40 mg IVP DAILY [facility] Spironolactone (Aldactone) 25 mg PO DAILY [facility] Last Admin: 07/15/16 14:31 Dose: 25 mg Zolpidem Tartrate (Ambien) 5 mg PO HS PRN PRN Reason: Sleep Last Admin: 07/11/16 22:47 Dose: 5 mg - Labs Labs: 07/16/16 06:40 07/16/16 06:40 PT 11.2 SECONDS (9.6-11.2) 07/09/16 08:00 INR 1.08 (0.92-1.08) 07/09/16 08:00 APTT 27.7 SECONDS (23.3-32.5) 07/09/16 08:00 - Constitutional Appears: Non-toxic, No Acute Distress - Respiratory Exam Respiratory Exam: NORMAL BREATHING PATTERN (mechanical ventilation). absent: Respiratory Distress - Cardiovascular Exam Cardiovascular Exam: Tachycardia - GI/Abdominal Exam GI & Abdominal Exam: Soft. absent: Tenderness - Neurological Exam Neurological Exam: Alert, Awake - Psychiatric Exam Psychiatric exam: Normal Affect, Normal Mood - Skin Skin Exam: Dry, Warm Assessment and Plan - Assessment and Plan (Free Text) Assessment: 66yoF with PMHx of COPD, bilateral breast cancer s/p chemo and radiation with respiratory failure, patient is currently intubated for the 3rd time this hospital admission, surgery is consulted for tracheostomy - VSS, Afebrile - Hemoglobin stable - Platelets decreased to 89 this morning from 94 yesterday - Discussed options with patient and daughter yesterday, both agree for trach - Written consent obtained and in the chart - Will hold off on tracheostomy until FiO2 can be titrated down from 70% - Needs cardiac clearance prior to surgery - Last ECHO on 06/14/16 showed EF 40-45% - Continue care as per ICU team - Discussed plan with Dr. Sumanth Franklin PGY-2 <Benny Julio - Last Filed: 07/16/16 15:56> Subjective - Date & Time of Evaluation Date of Evaluation: 07/16/16 Time of Evaluation: 15:15 - Subjective Subjective: Patient was seen and examined at the bedside. Agree with resident's note above Objective - Vital Signs/Intake and Output Vital Signs (last 24 hours): Temp Pulse Resp BP Pulse Ox 98.2 F 122 H 18 130/89 100 07/16/16 13:00 07/16/16 14:00 07/16/16 14:00 07/16/16 14:00 07/16/16 14:00 Intake and Output: 07/16/16 07/16/16 06:59 18:59 Intake Total 1107 820 Output Total 1600 480 Balance -493 340 - Medications Medications: Current Medications Albuterol/Ipratropium (Duoneb 3 Mg/0.5 Mg (3 Ml) Ud) 3 ml INH RQ4 PRN PRN Reason: Shortness of Breath Last Admin: 07/16/16 07:43 Dose: 3 ml Anastrozole (Arimidex 1 Mg Tab) 1 mg PO DAILY ANDREAS Last Admin: 07/16/16 10:03 Dose: 1 mg Enoxaparin Sodium (Lovenox) 40 mg SC DAILY [facility] PRN Reason: Protocol Gabapentin (Neurontin) 600 mg PO Q8 [facility] Last Admin: 07/16/16 09:06 Dose: 600 mg Linezolid (Zyvox 600mg/300ml D5w) 300 mls @ 300 mls/hr IVPB Q12 [facility] Last Admin: 07/16/16 10:04 Dose: 300 mls/hr Trimethoprim/Sulfamethoxazole (435 mg/ Dextrose) 500 mls @ 333.333 mls/hr IVPB Q12H [facility] Last Admin: 07/16/16 15:06 Dose: 333.333 mls/hr Methylprednisolone 40 mg/ (Sodium Chloride) 50 mls @ 100 mls/hr IV Q12 [facility] Last Admin: 07/16/16 09:08 Dose: 100 mls/hr Ceftazidime 1 gm/ Sodium (Chloride) 100 mls @ 200 mls/hr IVPB Q8 [facility] Last Admin: 07/16/16 09:07 Dose: 200 mls/hr Fentanyl Citrate 2,500 mcg/ (Dextrose) 250 mls @ 5.7 mls/hr IV .Q24H [facility]; Per Protocol PRN Reason: Protocol Last Admin: 07/16/16 10:09 Dose: 7.5 mls/hr Lactobacillus Acidophilus (Bacid Acidophilus) 1 cap PO BID [facility] Last Admin: 07/16/16 10:02 Dose: 1 cap Lorazepam (Ativan) 1 mg IVP Q4 PRN PRN Reason: Anxiety Last Admin: 07/16/16 15:39 Dose: 1 mg Methimazole (Tapazole) 5 mg PO DAILY [facility] Last Admin: 07/16/16 09:06 Dose: 5 mg Morphine Sulfate (Morphine) 2 mg IVP Q2 PRN PRN Reason: Pain, moderate (4-7) Last Admin: 07/16/16 07:40 Dose: 2 mg Multi-Ingredient Cream (Hydrocerin Cream) 1 applic TOP BID [facility] Last Admin: 07/16/16 10:05 Dose: 1 applic Nitroglycerin (Nitro-Bid 2% Oint) 1 in TOP Q6 [facility] Last Admin: 07/16/16 10:04 Dose: 1 in Pantoprazole Sodium (Protonix Inj) 40 mg IVP DAILY [facility] Last Admin: 07/16/16 09:08 Dose: 40 mg Spironolactone (Aldactone) 25 mg PO DAILY ANDREAS Last Admin: 07/16/16 09:06 Dose: 25 mg Zolpidem Tartrate (Ambien) 5 mg PO HS PRN PRN Reason: Sleep Last Admin: 07/11/16 22:47 Dose: 5 mg - Labs Labs: 07/16/16 06:40 07/16/16 06:40 PT 11.2 SECONDS (9.6-11.2) 07/09/16 08:00 INR 1.08 (0.92-1.08) 07/09/16 08:00 APTT 27.7 SECONDS (23.3-32.5) 07/09/16 08:00
[2016-07-16] MEDS: methIMAzole 5 MG TAB PO SCH (09:06)
[2016-07-16] MEDS: methylPREDNISolone 40 MG in Sodium Chloride 0.9% 50 ML IV SCH ×2 (09:08→20:19)
--- NOTE | 2016-07-16 10:00 | CP.PCM.PN ---
Subjective - Date & Time of Evaluation Date of Evaluation: 07/16/16 Time of Evaluation: 09:00 - Subjective Subjective: Pt was reintubated yesterday due to Resp distress Plan for Traceostomy on Tuesday No fever Pt is awake - communicates by writing complains of mandibular and neck pain and upper chest pain no abd pain Objective - Vital Signs/Intake and Output Vital Signs (last 24 hours): Temp Pulse Resp BP Pulse Ox 98.4 F 96 H 13 106/65 100 07/16/16 07:30 07/16/16 06:00 07/16/16 06:00 07/16/16 06:00 07/16/16 06:00 Intake and Output: 07/16/16 07/16/16 06:59 18:59 Intake Total 1107 Output Total 1600 Balance -493 - Medications Medications: Current Medications Albuterol/Ipratropium (Duoneb 3 Mg/0.5 Mg (3 Ml) Ud) 3 ml INH RQ4 PRN PRN Reason: Shortness of Breath Last Admin: 07/16/16 07:43 Dose: 3 ml Alprazolam (Xanax) 0.25 mg PO Q12 PRN PRN Reason: Anxiety Stop: 07/21/16 09:34 Anastrozole (Arimidex 1 Mg Tab) 1 mg PO DAILY [facility] Last Admin: 07/15/16 14:30 Dose: 1 mg Gabapentin (Neurontin) 600 mg PO Q8 [facility] Last Admin: 07/16/16 09:06 Dose: 600 mg Linezolid (Zyvox 600mg/300ml D5w) 300 mls @ 300 mls/hr IVPB Q12 [facility] Last Admin: 07/15/16 21:45 Dose: 300 mls/hr Trimethoprim/Sulfamethoxazole (435 mg/ Dextrose) 500 mls @ 333.333 mls/hr IVPB Q12H [facility] Last Admin: 07/16/16 02:55 Dose: 333.333 mls/hr Methylprednisolone 40 mg/ (Sodium Chloride) 50 mls @ 100 mls/hr IV Q12 [facility] Last Admin: 07/16/16 09:08 Dose: 100 mls/hr Ceftazidime 1 gm/ Sodium (Chloride) 100 mls @ 200 mls/hr IVPB Q8 [facility] Last Admin: 07/16/16 09:07 Dose: 200 mls/hr Fentanyl Citrate 2,500 mcg/ (Dextrose) 250 mls @ 5.7 mls/hr IV .Q24H [facility]; Per Protocol PRN Reason: Protocol Lactobacillus Acidophilus (Bacid Acidophilus) 1 cap PO BID [facility] Last Admin: 07/15/16 17:04 Dose: 1 cap Lorazepam (Ativan) 1 mg IVP Q4 PRN PRN Reason: Anxiety Last Admin: 07/15/16 06:23 Dose: 1 mg Methimazole (Tapazole) 5 mg PO DAILY [facility] Last Admin: 07/16/16 09:06 Dose: 5 mg Morphine Sulfate (Morphine) 2 mg IVP Q2 PRN PRN Reason: Pain, moderate (4-7) Last Admin: 07/16/16 07:40 Dose: 2 mg Multi-Ingredient Cream (Hydrocerin Cream) 1 applic TOP BID [facility] Last Admin: 07/15/16 17:11 Dose: 1 applic Nitroglycerin (Nitro-Bid 2% Oint) 1 in TOP Q6 [facility] Last Admin: 07/16/16 04:16 Dose: 1 in Pantoprazole Sodium (Protonix Inj) 40 mg IVP DAILY [facility] Last Admin: 07/16/16 09:08 Dose: 40 mg Spironolactone (Aldactone) 25 mg PO DAILY [facility] Last Admin: 07/16/16 09:06 Dose: 25 mg Zolpidem Tartrate (Ambien) 5 mg PO HS PRN PRN Reason: Sleep Last Admin: 07/11/16 22:47 Dose: 5 mg - Labs Labs: 07/16/16 06:40 07/16/16 06:40 PT 11.2 SECONDS (9.6-11.2) 07/09/16 08:00 INR 1.08 (0.92-1.08) 07/09/16 08:00 APTT 27.7 SECONDS (23.3-32.5) 07/09/16 08:00 - Constitutional Appears: In Acute Distress, Older Than Stated Age, Chronically Ill Intubated on Vent - Head Exam Head Exam: NORMAL INSPECTION, NORMOCEPHALIC Right facial abscess incision looks clean, now smaller however still sl tender - Eye Exam Eye Exam: EOMI, Normal appearance Pupil Exam: NORMAL ACCOMODATION - ENT Exam ENT Exam: Mucous Membranes Dry, Normal External Ear Exam - Neck Exam Neck Exam: Full ROM. absent: Meningismus - Respiratory Exam Respiratory Exam: Accessory Muscle Use, Chest Wall Tenderness, Decreased Breath Sounds, Rhonchi, Respiratory Distress Intubated on Vent - Cardiovascular Exam Cardiovascular Exam: Tachycardia, REGULAR RHYTHM, +S1, +S2 - GI/Abdominal Exam GI & Abdominal Exam: Soft, Normal Bowel Sounds. absent: Tenderness OGT in place - Extremities Exam Extremities Exam: absent: Calf Tenderness, Normal Capillary Refill Additional comments: Right arm edema right shoulder post surgical deformity - Neurological Exam Additional comments: awake , nods to say yes, follows simple commands oriented - Psychiatric Exam Psychiatric exam: Flat Affect - Skin Additional comments: noted ecchymosis denise on chest and LE Assessment and Plan (1) Acute and chronic respiratory failure with hypercapnia Status: Acute (2) Osteomyelitis of mandible Status: Acute (3) Hypothyroidism Status: Acute (4) Acute exacerbation of chronic obstructive pulmonary disease (COPD) Status: Acute (5) HTN (hypertension) Status: Chronic (6) Hx of breast cancer Status: Chronic (7) Acute exacerbation of CHF (congestive heart failure) Status: Acute (8) Hypokalemia Status: Acute (9) Facial abscess Status: Acute (10) DVT prophylaxis Status: Acute - Assessment and Plan (Free Text) Assessment: 66 y/o female PMH COPD, bilateral breast CA s/p chemo and radiation 8 years ago , HTN, Hyperthyroidism presented with 2 week history of worsening bilateral lower extremity swelling and weakness, unable to get herself up to her walker. Patient has mild dyspnea at baseline. She also came with a large right facial swelling for almost 2 weeks and was taking PO antibiotics prescribed by her dentist. Patient was admitted for generalized weakness , Hyponatremia and Facial abscess. She was started on IV antibiotics for facial abscess and Lasix IV with fluid restriction for LE edema. Maxillofacial Ct showed possible abscess accumulation. Evaluated by Oromaxillofacial surgeon and underwent Incision and drainage of abscess. Bone scan showed possible osteomyelitis . ID recommends 4-6 wks IV abx treatment. During this hospitalization noted to have increased dyspnea at rest and more so with minimal activity, decreased air entry bilaterally and increased work of breathing. She was started on high flow O2, Higher doses of theophylline and IV hydrocortisone. CTA chest and LE doppler showed no DVT. She was transferred to ICU for close monitoring for tachypnea and tachycardia. She underwent IR drainage on 06/24 of right facial abscess due to reaccumulation and cultures came positive for VRE and bria. Antibiotics were changed to Zyvox , Meropenem and Fluconazone. Despite drainage and IV antibiotics she still kept complaining of pain to right supramandibular area with increased swelling. Repeat CT showed abscess formation. Patient underwent I&D in OR 07/06/16 with ginger drainage placement. She continues to have episodes of resp distress - tachypneic , tachycardic , with chest congestion , unable to expectorate despite high flow O2 therapy, Duonebs and Corticosteroids. 07/07/16 underwent Bronchoscopy. BAL showed Stenotrophomonas Maltophilia. Antibiotics changed to IV bactrim, Fortaz, Zyvox and Fluconazole. On 07/09 she developed severe respiratory distress with hypoxemia requiring intubation and extubated on 07/14. 07/15 : again noted to be in resp distress, tachypneic , tachycardic so was reintubated. Plan for Tracheostomy and ? LTACH 1. Acute on Chronic Respiratory Failure with hypercapnea Intubated on 07/09 and extubated 07/14 however yesterday again in resp distress and was reintubated Would also need Tracheostomy : Surgery: Dr Julio consulted- Plan for Trach on Tuesday- cleared by Dr Luu for the procedure Pulmonary: Dr Benz, is following pt closely s/p bronchoscopy 07/07/16 with BAL growing Stenotrophomonas maltophilla. Continue bactrim, Fortaz, and zyvox as per ID on Methylprednisone 40 mg Iv q12, Xopenex, albuterol and tiotropium inhaler 2. Chest Pain , prob sec to Anxiety, ACS ruled out with recurrent pressure like chest pain on and off cardiology consulted Dr. Luu Trop -- negative and EKG showed no ST-T wave changes Most likely atypical chest pain related to anxiety , hypokalemia and COPD, no signs of ischemia Pain mgt consulted- Dr Verdugo Pt is on fentanyl drip Ativan prn 3. Facial abscess with mandibular Osteomyelitis s/p drainage of abscess with penreose drain placement s/p Incision and drainage on 06/[address] Anderson maxillofacial surgeon and rpt I&D 07/06 , now with Troy drain placed pathology report showed inflammatory cells, no malignancy Nuclear Bone Scan suggestive of osteomyelitis initial cultures were with no growth ID consult with Dr Ryan appreciated . 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 Cultures reported as VRE and Bria Ginger drain d/c by dr Ambrose continue Zyvox , Bactrim, Fortaz LFTs abnormal today - discussed with Dr ryan - rec to d/c IV Fluconazole 4. Bilateral LE edema sec to CHF exacerbation with diastolic dysfxn Echo showed EF 40-45 % and dilated RV continue fluid restriction Promote ambulation once better cont Aldactone 5. Hypokalemia multifactorial diuretic induced , Albuterol, Hypothyroidism and GI loss off Lasix, on Aldactone Continue KCl runs and PO replacement as needed Nephro consult appreciated CT of abd showed no adrenal mass 6 .Hyponatremia most likely secondary to solute depletion and infection Continue fluid restriction 7.Hx breast ca, bilateral stable, s/p bilateral mastectomy continue Arimidex 8. Tachycardia -- multifactorial Hx of HTN was on verapamil at home ( 80mg tid) but decreased dose due to low BP and now discontinued as may contribute to leg edema- discussed with Dr Turcios- restarted Verapamil low dose continue monitoring patient with high levels of anxiety and pain called Dr Verdugo for Pain mgt , discussed case Pt on Fentanyl drip 9. Hypothyroidism/ Hyperthyroidism patient has history of hyperthyroidism , was on Methimazole and noticed to had developed hypothyroidism so Methimazole was d/c and she was started on Po levothyroxine this admission , TSH then went down and Metrhimazole restarted Methimazole 5 mg po daily restarted as discussed with Dr Vu 10. Anemia, chronic dis monitor anemia work up showed depleted iron stores Venofer IV given s/p 2 units PRBC transfusion 11. Right cephalic vein thrombosis ( superficial vein) no need for therapeutic anticoag 12.DVT ppx on lovenox
[2016-07-16] MEDS: Lactobacillus Acidophilus 500 MU Cap PO SCH ×2 (10:02→16:43)
[2016-07-16] MEDS: Linezolid 600 mg in D5W 300 ml 300 ML IVPB SCH ×2 (10:04→21:30)
[2016-07-16] MEDS: Hydrocerin CREAM TOP SCH ×2 (10:05→16:46)
[2016-07-16] MEDS: Fentanyl Citrate 2,500 MCG in Dextrose 5% In Water 200 ML IV SCH (10:09)
--- NOTE | 2016-07-16 10:21 | RAD ---
HISTORY: intubated COMPARISON: 07/15/2016 FINDINGS: Endotracheal tube and nasogastric tube are stable in position. The right IJV line terminates in the SVC. LUNGS: There is interval improvement in right lower lobe airspace disease and persistent left retrocardiac opacity. PLEURA: There are small pleural effusions. No pneumothorax. CARDIOVASCULAR: Normal. OSSEOUS STRUCTURES: There is persistent deformity in the right humerus. VISUALIZED UPPER ABDOMEN: Normal. OTHER FINDINGS: None. IMPRESSION: Interval improved aeration in the right lower lobe with persistent pneumonia. No change in left lower lobe atelectasis/pneumonia. Small pleural effusions.
--- NOTE | 2016-07-16 10:28 | CP.PCM.PN ---
Subjective - Date & Time of Evaluation Date of Evaluation: 07/16/16 Time of Evaluation: 10:00 - Subjective Subjective: Pt is stable from cardiac point of view to proceed with the scheduled tracheostomy procedure. Objective - Vital Signs/Intake and Output Vital Signs (last 24 hours): Temp Pulse Resp BP Pulse Ox 98.4 F 96 H 13 106/65 100 07/16/16 07:30 07/16/16 06:00 07/16/16 06:00 07/16/16 06:00 07/16/16 06:00 Intake and Output: 07/16/16 07/16/16 06:59 18:59 Intake Total 1107 Output Total 1600 Balance -493 - Medications Medications: Current Medications Albuterol/Ipratropium (Duoneb 3 Mg/0.5 Mg (3 Ml) Ud) 3 ml INH RQ4 PRN PRN Reason: Shortness of Breath Last Admin: 07/16/16 07:43 Dose: 3 ml Alprazolam (Xanax) 0.25 mg PO Q12 PRN PRN Reason: Anxiety Stop: 07/21/16 09:34 Anastrozole (Arimidex 1 Mg Tab) 1 mg PO DAILY [facility] Last Admin: 07/16/16 10:03 Dose: 1 mg Gabapentin (Neurontin) 600 mg PO Q8 [facility] Last Admin: 07/16/16 09:06 Dose: 600 mg Linezolid (Zyvox 600mg/300ml D5w) 300 mls @ 300 mls/hr IVPB Q12 [facility] Last Admin: 07/16/16 10:04 Dose: 300 mls/hr Trimethoprim/Sulfamethoxazole (435 mg/ Dextrose) 500 mls @ 333.333 mls/hr IVPB Q12H [facility] Last Admin: 07/16/16 02:55 Dose: 333.333 mls/hr Methylprednisolone 40 mg/ (Sodium Chloride) 50 mls @ 100 mls/hr IV Q12 [facility] Last Admin: 07/16/16 09:08 Dose: 100 mls/hr Ceftazidime 1 gm/ Sodium (Chloride) 100 mls @ 200 mls/hr IVPB Q8 [facility] Last Admin: 07/16/16 09:07 Dose: 200 mls/hr Fentanyl Citrate 2,500 mcg/ (Dextrose) 250 mls @ 5.7 mls/hr IV .Q24H [facility]; Per Protocol PRN Reason: Protocol Last Admin: 07/16/16 10:09 Dose: 7.5 mls/hr Lactobacillus Acidophilus (Bacid Acidophilus) 1 cap PO BID [facility] Last Admin: 07/16/16 10:02 Dose: 1 cap Lorazepam (Ativan) 1 mg IVP Q4 PRN PRN Reason: Anxiety Last Admin: 07/16/16 10:01 Dose: 1 mg Methimazole (Tapazole) 5 mg PO DAILY [facility] Last Admin: 07/16/16 09:06 Dose: 5 mg Morphine Sulfate (Morphine) 2 mg IVP Q2 PRN PRN Reason: Pain, moderate (4-7) Last Admin: 07/16/16 07:40 Dose: 2 mg Multi-Ingredient Cream (Hydrocerin Cream) 1 applic TOP BID [facility] Last Admin: 07/16/16 10:05 Dose: 1 applic Nitroglycerin (Nitro-Bid 2% Oint) 1 in TOP Q6 [facility] Last Admin: 07/16/16 10:04 Dose: 1 in Pantoprazole Sodium (Protonix Inj) 40 mg IVP DAILY [facility] Last Admin: 07/16/16 09:08 Dose: 40 mg Spironolactone (Aldactone) 25 mg PO DAILY [facility] Last Admin: 07/16/16 09:06 Dose: 25 mg Zolpidem Tartrate (Ambien) 5 mg PO HS PRN PRN Reason: Sleep Last Admin: 07/11/16 22:47 Dose: 5 mg - Labs Labs: 07/16/16 06:40 07/16/16 06:40 PT 11.2 SECONDS (9.6-11.2) 07/09/16 08:00 INR 1.08 (0.92-1.08) 07/09/16 08:00 APTT 27.7 SECONDS (23.3-32.5) 07/09/16 08:00
--- NOTE | 2016-07-16 13:16 | PN ---
DATE: 07/16/2016 ROOM: 434 ICU. This is a 66-year-old female with known history of hyperthyroidism, presenting here with congestive h eart failure and acute exacerbation of COPD and is now being followed closely for metabolic managemen t. Her repeat chemistries showed a BUN of 13, sodium 136, potassium 4.3, chloride 93, CO2 33, glucose 14 1 and creatinine 0.3. Her latest thyroid study showed a TSH of 0.51 with a free T4 of 0.79. So at this time, we will continue the same low dose medical therapy with Tapazole given as 5 mg once daily as ordered. We will titrate incrementally as indicated to optimize metabolic control. We will follow and advise accordingly. Polly Vu MD cc: [id number] TT: 07/16/2016 13:15:47 Confirmation # [id number] Dictation # [id number]
[2016-07-16] MEDS: Enoxaparin 40 mg Syringe SC SCH (16:42)
[2016-07-17] MEDS: DEXTROSE 5% IVPB SCH (02:41)
[2016-07-17] MEDS: TRIMETHOPRIM IVPB SCH (02:41)
[2016-07-17] MEDS: WATER IVPB SCH (02:41)
[2016-07-17] MEDS: SULFAMETHOXAZOLE IVPB SCH (02:41)
[2016-07-17] MEDS: Nitroglycerin 2% 1GM UD TOP SCH ×4 (03:50→21:58)
[2016-07-17 05:06] LABS: ABG ALLEN TEST YES; ABG MECHANICAL RATE 12; ARTERIAL BLOOD GAS HCO3 31.6 mmol/L (21-28); ARTERIAL BLOOD GAS MODE A/C; ARTERIAL BLOOD GAS O2 CAPACITY 15.9 mL/dL (16-24); ARTERIAL BLOOD GAS O2 CONTENT 15.7 ML/dL (15-23); ARTERIAL BLOOD GAS PH 7.38 (7.35-7.45); ARTERIAL BLOOD GAS PO2 115 mm/Hg (80-100); ARTERIAL BLOOD HGB O2 SAT 95.7 % (95.0-98.0); ATERIAL BLOOD GAS PEEP 5; CARBOXYHEMOGLOBIN 1.8 % (0.5-1.5); HHB 1.3 % (0.0-5.0); METHEMOGLOBIN 1.3 % (0.0-3.0)
[2016-07-17 07:15] LABS: HEMATOCRIT 35.6 % (34.0-47.0); LYMPH # 0.2 K/uL (1.0-4.3); LYMPH % 4.4 % (20.0-40.0); MEAN CELL VOLUME 87.1 fl (81.0-99.0); MEAN CORPUSCULAR HEMOGLOBIN 28.4 pg (27.0-31.0); MEAN CORPUSCULAR HGB CONC 32.6 g/dL (33.0-37.0); MEAN PLATELET VOLUME 8.3 fl (7.2-11.7); MONO # 0.1 K/uL (0.0-0.8); MONO % 2.6 % (0.0-10.0); NEUT # 4.5 K/uL (1.8-7.0); NRBC % 1.3 % (0.0-0.0); PLATELET COUNT 97 K/uL (130-400); RED CELL DISTRIBUTION WIDTH 24.7 % (11.5-14.5); WHITE BLOOD COUNT 4.9 K/uL (4.8-10.8)
[2016-07-17 07:25] LABS: BLOOD UREA NITROGEN 12 mg/dl (7-17); CALCIUM 8.3 mg/dL (8.4-10.2); CARBON DIOXIDE 31 mmol/L (22-30); CHLORIDE 91 mmol/L (98-107); GFR AFRICAN-AMERICAN > 60; GLUCOSE,RANDOM 145 mg/dL (65-105); POTASSIUM 4.6 MMOL/L (3.6-5.0); SODIUM 128 mmol/l (132-148)
[2016-07-17] MEDS: Enoxaparin 40 mg Syringe SC SCH (08:13)
[2016-07-17] MEDS: methIMAzole 5 MG TAB PO SCH (08:14)
[2016-07-17] MEDS: Lactobacillus Acidophilus 500 MU Cap PO SCH ×2 (08:14→16:50)
[2016-07-17] MEDS: Linezolid 600 mg in D5W 300 ml 300 ML IVPB SCH ×2 (08:15→21:59)
[2016-07-17] MEDS: methylPREDNISolone 40 MG in Sodium Chloride 0.9% 50 ML IV SCH (08:15)
[2016-07-17] MEDS: Hydrocerin CREAM TOP SCH ×2 (08:17→16:52)
--- NOTE | 2016-07-17 08:31 | CP.PCM.PN ---
Subjective - Date & Time of Evaluation Date of Evaluation: 07/17/16 Time of Evaluation: 08:30 - Subjective Subjective: Patient seen and evaluated bedside. Chronically ill female , intubated on MV PRVC/ Ac mode 12/400/5 /40% saturating well 98 % ABG 60/115/31/7.38 Awake . alert , oriented , answering questions and following commands. Denies any pain at present Bop stable 108/75 still tachycardic HR 106 but better, afebrile On Fentanyl drip for pain control and sedation no acute issues overnight WBC 4.9 Hgb 11.6 Plt 97 K Na 128 Cl 91 AST/ALT 75/117 I/O 3510/2280 Objective - Vital Signs/Intake and Output Vital Signs (last 24 hours): Temp Pulse Resp BP Pulse Ox 97.8 F 106 H 13 108/75 100 07/17/16 00:00 07/17/16 07:18 07/17/16 07:18 07/17/16 07:18 07/17/16 07:18 Intake and Output: 07/17/16 07/17/16 06:59 18:59 Intake Total 1728 Output Total 1200 Balance 528 - Medications Medications: Current Medications Albuterol/Ipratropium (Duoneb 3 Mg/0.5 Mg (3 Ml) Ud) 3 ml INH RQ4 PRN PRN Reason: Shortness of Breath Last Admin: 07/16/16 07:43 Dose: 3 ml Anastrozole (Arimidex 1 Mg Tab) 1 mg PO DAILY [facility] Last Admin: 07/17/16 08:13 Dose: 1 mg Enoxaparin Sodium (Lovenox) 40 mg SC DAILY [facility] PRN Reason: Protocol Last Admin: 07/17/16 08:13 Dose: 40 mg Gabapentin (Neurontin) 600 mg PO Q8 [facility] Last Admin: 07/17/16 08:13 Dose: 600 mg Linezolid (Zyvox 600mg/300ml D5w) 300 mls @ 300 mls/hr IVPB Q12 [facility] Last Admin: 07/17/16 08:15 Dose: 300 mls/hr Trimethoprim/Sulfamethoxazole (435 mg/ Dextrose) 500 mls @ 333.333 mls/hr IVPB Q12H [facility] Last Admin: 07/17/16 02:41 Dose: 333.333 mls/hr Methylprednisolone 40 mg/ (Sodium Chloride) 50 mls @ 100 mls/hr IV Q12 [facility] Last Admin: 07/17/16 08:15 Dose: 100 mls/hr Ceftazidime 1 gm/ Sodium (Chloride) 100 mls @ 200 mls/hr IVPB Q8 [facility] Last Admin: 07/17/16 08:16 Dose: 200 mls/hr Fentanyl Citrate 2,500 mcg/ (Dextrose) 250 mls @ 5.7 mls/hr IV .Q24H [facility]; Per Protocol PRN Reason: Protocol Last Titration: 07/16/16 20:14 Dose: 116 mcg/hr Lactobacillus Acidophilus (Bacid Acidophilus) 1 cap PO BID [facility] Last Admin: 07/17/16 08:14 Dose: 1 cap Lorazepam (Ativan) 1 mg IVP Q4 PRN PRN Reason: Anxiety Last Admin: 07/16/16 15:39 Dose: 1 mg Methimazole (Tapazole) 5 mg PO DAILY [facility] Last Admin: 07/17/16 08:14 Dose: 5 mg Morphine Sulfate (Morphine) 2 mg IVP Q2 PRN PRN Reason: Pain, moderate (4-7) Last Admin: 07/16/16 07:40 Dose: 2 mg Multi-Ingredient Cream (Hydrocerin Cream) 1 applic TOP BID [facility] Last Admin: 07/17/16 08:17 Dose: 1 applic Nitroglycerin (Nitro-Bid 2% Oint) 1 in TOP Q6 [facility] Last Admin: 07/17/16 03:50 Dose: 1 in Pantoprazole Sodium (Protonix Inj) 40 mg IVP DAILY [facility] Last Admin: 07/17/16 08:14 Dose: 40 mg Spironolactone (Aldactone) 25 mg PO DAILY [facility] Last Admin: 07/17/16 08:12 Dose: 25 mg Zolpidem Tartrate (Ambien) 5 mg PO HS PRN PRN Reason: Sleep Last Admin: 07/11/16 22:47 Dose: 5 mg - Labs Labs: 07/17/16 06:00 07/17/16 06:00 PT 11.2 SECONDS (9.6-11.2) 07/09/16 08:00 INR 1.08 (0.92-1.08) 07/09/16 08:00 APTT 27.7 SECONDS (23.3-32.5) 07/09/16 08:00 - Constitutional Appears: Chronically Ill, Other (intubated on MV) - Head Exam Head Exam: ATRAUMATIC, NORMOCEPHALIC - Eye Exam Eye Exam: EOMI, PERRL Pupil Exam: NORMAL ACCOMODATION - ENT Exam ENT Exam: Mucous Membranes Dry, Normal Exam - Neck Exam Neck Exam: Normal Inspection - Respiratory Exam Respiratory Exam: Decreased Breath Sounds (bibasilar), Clear to Ausculation Bilateral, Rales (bibasilar). absent: Accessory Muscle Use, Wheezes, Respiratory Distress Additional comments: intubated on MV - Cardiovascular Exam Cardiovascular Exam: Tachycardia, REGULAR RHYTHM. absent: JVD - GI/Abdominal Exam GI & Abdominal Exam: Soft, Normal Bowel Sounds. absent: Distended, Guarding, Tenderness, Rebound - Rectal Exam Rectal Exam: Deferred - Extremities Exam Extremities Exam: absent: Calf Tenderness Additional comments: upper thigh edema 3 + resolved edema to LE - Neurological Exam Neurological Exam: Alert, Awake, CN II-XII Intact - Psychiatric Exam Psychiatric exam: Normal Affect - Skin Skin Exam: Dry, Warm Additional comments: multiple echymotic areas to LUWe , left upper chest Right knee lateral aspect area with open blisters weeping serous fluids Assessment and Plan - Assessment and Plan (Free Text) Assessment: 66 y/o female PMH COPD, bilateral breast CA s/p chemo and radiation 8 years ago , HTN, Hyperthyroidism presented with 2 week history of worsening bilateral lower extremity swelling and weakness, unable to get herself up to her walker. Patient has mild dyspnea at baseline. She also came with a large right facial swelling for almost 2 weeks and was taking PO antibiotics prescribed by her dentist. Patient was admitted for generalized weakness , Hyponatremia and Facial abscess. She was started on IV antibiotics for facial abscess and Lasix IV with fluid restriction for LE edema. Maxillofacial Ct showed possible abscess accumulation. Evaluated by Oromaxillofacial surgeon and underwent Incision and drainage of abscess. Bone scan showed possible osteomyelitis . ID recommends 4-6 wks IV abx treatment. During this hospitalization noted to have increased dyspnea at rest and more so with minimal activity, decreased air entry bilaterally and increased work of breathing. She was started on high flow O2, Higher doses of theophylline and IV hydrocortisone. CTA chest and LE doppler showed no DVT. She was transferred to ICU for close monitoring for tachypnea and tachycardia. She underwent IR drainage on 06/24 of right facial abscess due to reaccumulation and cultures came positive for VRE and amanda. Antibiotics were changed to Zyvox , Meropenem and Fluconazone. Despite drainage and IV antibiotics she still kept complaining of pain to right supramandibular area with increased swelling. Repeat CT showed abscess formation. Patient underwent I&D in OR 07/06/16 with cynthia drainage placement. She continues to have episodes of resp distress - tachypneic , tachycardic , with chest congestion , unable to expectorate despite high flow O2 therapy, Duonebs and Corticosteroids. 07/07/16 underwent Bronchoscopy. BAL showed Stenotrophomonas Maltophilia. Antibiotics changed to IV bactrim, Fortaz, Zyvox and Fluconazole. On 07/09 she developed severe respiratory distress with hypoxemia requiring intubation and extubated on 07/14. 07/15 : again noted to be in resp distress, tachypneic , tachycardic so was reintubated. Plan for Tracheostomy and LTACH 1. Acute on Chronic Respiratory Failure with hypercapnea Multiple trials of intubation and extubation this admission .Still intubated on MV PRVC/ Ac mode 12/400/5/40 % Intubated on 07/09 and extubated 07/14 however again reintubated 07/16 for resp distress Patient would need tracheostomy Surgery: Dr Julio consulted- Plan for Trach on Tuesday- cleared by Dr Luu for the procedure Pulmonary: Dr Benz, is following pt closely s/p bronchoscopy 07/07/16 with BAL growing Stenotrophomonas maltophilla. Continue bactrim, Fortaz, and zyvox as per ID on Methylprednisone 40 mg Iv q12, Xopenex, albuterol and tiotropium inhaler 2. Chest Pain , prob sec to Anxiety, ACS ruled out with recurrent pressure like chest pain on and off cardiology consulted Dr. Luu Trop -- negative and EKG showed no ST-T wave changes Most likely atypical chest pain related to anxiety , hypokalemia and COPD, no signs of ischemia Pain mgt consulted- Dr Verdugo Pt is on fentanyl drip Ativan prn 3. Facial abscess with mandibular Osteomyelitis s/p drainage of abscess with penreose drain placement s/p Incision and drainage on 06/[address] Anderson maxillofacial surgeon and rpt I&D 07/06 pathology report showed inflammatory cells, no malignancy Nuclear Bone Scan suggestive of osteomyelitis initial cultures were with no growth ID consult with Dr Obrien appreciated . Recommended IV abx 6 wks total ( has been on antibiotics for 6 weeks , started Iv antibiotics 06/04/16) Tunneled central line placed for group home IV antibiotics- this will need to be d/c by IR after IV abx treatment is completed ( as discussed with Dr Gunter - pt was informed of need to see IR after abx tx) Due to increased swelling and pain patient underwent drainage of facial collection by IR on 06/24 and 24 ml yellow fluid obtained. Cultures reported as VRE and Amanda [place] drain d/c by dr Ambrose on Zyvox , Bactrim, Fortaz Discontinued Fluconazole due to abnormal LFT-s 4. Bilateral LE edema sec to CHF exacerbation with diastolic dysfxn Echo showed EF 40-45 % and dilated RV continue fluid restriction Promote ambulation once better cont Aldactone 5. Hypokalemia multifactorial diuretic induced , Albuterol, Hypothyroidism and GI loss off Lasix, on Aldactone Continue KCl runs and PO replacement as needed Nephro consult appreciated CT of abd showed no adrenal mass 6 .Hyponatremia most likely secondary to solute depletion and infection Continue fluid restriction 7.Hx breast ca, bilateral stable, s/p bilateral mastectomy continue Arimidex 8. Tachycardia -- multifactorial Hx of HTN was on verapamil at home ( 80mg tid) but decreased dose due to low BP and now discontinued as may contribute to leg edema- discussed with Dr Turcios- restarted Verapamil low dose continue monitoring patient with high levels of anxiety and pain called Dr Verdugo for Pain mgt , discussed case Pt on Fentanyl drip 9. Hypothyroidism/ Hyperthyroidism patient has history of hyperthyroidism , was on Methimazole and noticed to had developed hypothyroidism so Methimazole was d/c and she was started on Po levothyroxine this admission , TSH then went down and Metrhimazole restarted Methimazole 5 mg po daily restarted as discussed with Dr Vu 10. Anemia, chronic dis monitor anemia work up showed depleted iron stores Venofer IV given s/p 2 units PRBC transfusion 11. Right cephalic vein thrombosis ( superficial vein) no need for therapeutic anticoag 12.Thrombocytopenia plt 97 K Most likely related to bone marrow suppression and multiple medication use Continue monitoring 13.DVT ppx on lovenox
--- NOTE | 2016-07-17 09:27 | RAD ---
HISTORY: pt is intubated COMPARISON: Comparison chest 07/16/2016. FINDINGS: LUNGS: In situ ETT, tip of which lies at the level of the aortic arch. The NGT is present as well, the tip of which has not been included on this film though distal aspect does lie below EG junction. The right IJ MediPort unchanged. Bibasilar opacities may represent some combination of atelectasis/infiltrate and effusions. PLEURA: No pneumothorax apparent. CARDIOVASCULAR: Normal. OSSEOUS STRUCTURES: No significant change persistent deformity right humerus. VISUALIZED UPPER ABDOMEN: Normal. OTHER FINDINGS: None. IMPRESSION: Support lines and tubes as above. Bibasilar atelectasis and or infiltrates and bilateral effusions. No other significant change.
[2016-07-17 10:00] LABS: NEUTROPHIL 90 % (42-75); TOTAL CELLS COUNTED 100
--- NOTE | 2016-07-17 11:07 | CP.PCM.PN ---
Subjective - Date & Time of Evaluation Date of Evaluation: 07/17/16 Time of Evaluation: 11:05 - Subjective Subjective: Remains orally intubated and mechanically ventilated. Sedated but easily awakened. Claims to have only minimal chest discomfort this morning. Latest CXR showing bilateral basal haziness suggesting effusions and atelectasis /infiltrates. Well oxygenated, AM ABG noted. Mld tachycardia noted, afebrile, normotensive. No dullness on percussion of the anterior chest wall. No subcutaneous emphysema palpated. Breath sounds are very diminished, but present bilaterally. No audible wheezing is heard, no bronchial breathing. Dependant rhonchi and few medium rales bilaterally. Heart sounds are very distant. Abdomen is soft with normal BS. Dependant edema less, but still present. Electrolyte imbalance to be corrected. Will ask ID if trimethoprim can be given as liquid via OGT rather than IV. No weaning likely at the present time while awaiting tracheostomy. Urine collection screening for possible carcinoid sent to lab. Objective - Vital Signs/Intake and Output Vital Signs (last 24 hours): Temp Pulse Resp BP Pulse Ox 97.9 F 113 H 16 108/71 100 07/17/16 08:00 07/17/16 08:00 07/17/16 08:00 07/17/16 08:00 07/17/16 08:00 Intake and Output: 07/16/16 07/17/16 23:59 11:59 Intake Total 1425 1373 Output Total 1180 800 Balance 245 573 - Medications Medications: Current Medications Albuterol/Ipratropium (Duoneb 3 Mg/0.5 Mg (3 Ml) Ud) 3 ml INH RQ4 PRN PRN Reason: Shortness of Breath Last Admin: 07/16/16 07:43 Dose: 3 ml Anastrozole (Arimidex 1 Mg Tab) 1 mg PO DAILY [facility] Last Admin: 07/17/16 08:13 Dose: 1 mg Enoxaparin Sodium (Lovenox) 40 mg SC DAILY [facility] PRN Reason: Protocol Last Admin: 07/17/16 08:13 Dose: 40 mg Gabapentin (Neurontin) 600 mg PO Q8 [facility] Last Admin: 07/17/16 08:13 Dose: 600 mg Linezolid (Zyvox 600mg/300ml D5w) 300 mls @ 300 mls/hr IVPB Q12 [facility] Last Admin: 07/17/16 08:15 Dose: 300 mls/hr Trimethoprim/Sulfamethoxazole (435 mg/ Dextrose) 500 mls @ 333.333 mls/hr IVPB Q12H [facility] Last Admin: 07/17/16 02:41 Dose: 333.333 mls/hr Methylprednisolone 40 mg/ (Sodium Chloride) 50 mls @ 100 mls/hr IV Q12 [facility] Last Admin: 07/17/16 08:15 Dose: 100 mls/hr Ceftazidime 1 gm/ Sodium (Chloride) 100 mls @ 200 mls/hr IVPB Q8 [facility] Last Admin: 07/17/16 08:16 Dose: 200 mls/hr Fentanyl Citrate 2,500 mcg/ (Dextrose) 250 mls @ 5.7 mls/hr IV .Q24H [facility]; Per Protocol PRN Reason: Protocol Last Titration: 07/16/16 20:14 Dose: 116 mcg/hr Lactobacillus Acidophilus (Bacid Acidophilus) 1 cap PO BID [facility] Last Admin: 07/17/16 08:14 Dose: 1 cap Lorazepam (Ativan) 1 mg IVP Q4 PRN PRN Reason: Anxiety Last Admin: 07/16/16 15:39 Dose: 1 mg Methimazole (Tapazole) 5 mg PO DAILY [facility] Last Admin: 07/17/16 08:14 Dose: 5 mg Morphine Sulfate (Morphine) 2 mg IVP Q2 PRN PRN Reason: Pain, moderate (4-7) Last Admin: 07/16/16 07:40 Dose: 2 mg Multi-Ingredient Cream (Hydrocerin Cream) 1 applic TOP BID [facility] Last Admin: 07/17/16 08:17 Dose: 1 applic Nitroglycerin (Nitro-Bid 2% Oint) 1 in TOP Q6 [facility] Last Admin: 07/17/16 03:50 Dose: 1 in Pantoprazole Sodium (Protonix Inj) 40 mg IVP DAILY [facility] Last Admin: 07/17/16 08:14 Dose: 40 mg Spironolactone (Aldactone) 25 mg PO DAILY [facility] Last Admin: 07/17/16 08:12 Dose: 25 mg Zolpidem Tartrate (Ambien) 5 mg PO HS PRN PRN Reason: Sleep Last Admin: 07/11/16 22:47 Dose: 5 mg - Labs Labs: 07/17/16 06:00 07/17/16 06:00 PT 11.2 SECONDS (9.6-11.2) 07/09/16 08:00 INR 1.08 (0.92-1.08) 07/09/16 08:00 APTT 27.7 SECONDS (23.3-32.5) 07/09/16 08:00 Assessment and Plan (1) Acute bronchitis with chronic obstructive pulmonary disease (COPD) Status: Acute (2) Hyperthyroidism Status: Chronic (3) Abscess Status: Acute (4) Hypokalemia Status: Acute
[2016-07-17] MEDS: Fentanyl Citrate 2,500 MCG in Dextrose 5% In Water 200 ML IV SCH (12:55)
--- NOTE | 2016-07-17 14:49 | PN ---
DATE: 07/17/2016 ROOM: 434 This is a 66-year-old female with recent acute exacerbation of COPD and currently on IV steroid thera py with supervening congestive heart failure and is now being followed closely for hemodynamic monito ring in the ICU. She also is clinically euthyroid and biochemically the latest thyroid study showed a TSH of 0.51 with a free T4 of 0.79, total T4 of 4.77. So at this time, we will continue the same t hyroid medication given as Tapazole 5 mg once daily in the evening as ordered. We will titrate incre mentally as indicated to optimize metabolic control. We will follow and advise accordingly. Polly Vu MD cc: [id number] TT: 07/17/2016 14:49:07 Confirmation # [id number] Dictation # [id number]
--- NOTE | 2016-07-17 15:25 | CP.CCUPN ---
CCU Subjective - Physician Review Events Since Last Encounter (Free Text): 07/17/16 15:22 Intubated with mild sedation BP has been stable CCU Objective - Vital Signs / Intake & Output Vital Signs (Last 4 hours): Vital Signs Temp Pulse Resp BP Pulse Ox 07/17/16 12:00 98.3 F 104 H 12 121/69 100 Intake and Output (Last 8hrs): Intake & Output 07/17/16 07/17/16 07/17/16 06:59 14:59 22:59 Intake Total 1373 Output Total 800 Balance 573 Weight 127 lb Intake: IV 93 Intake, Piggyback 900 Tube Feeding 280 Free Water Flush 100 Output: Urine 800 Urethral (Gutierrez) 800 Other: # Bowel Movements 1 - Physical Exam Narrative Physical Exam (Free Text): 07/17/16 15:22 P/E Neck: No JVD Lungs: No ronchi, crackles, decreased breath sounds in bases. heart: No gallop Abdomen: soft, non-tender Ext: No edema heart: No gallop Head: Positive for: Atraumatic, Swelling (R mandible, improving). Negative for : Ecchymosis Pupils: Positive for: PERRL. Negative for: Sluggish, Non-Reactive Extroacular Muscles: Positive for: EOMI. Negative for: Gaze Palsy, Entrapment Conjunctiva: Positive for: Normal Mouth: Positive for: Moist Mucous Membranes Pharnyx: Positive for: Normal Nose (External): Positive for: Atraumatic Nose (Internal): Positive for: Normal Inspection Neck: Positive for: Trachea Midline. Negative for: MIDLINE TENDERNESS, Paraspinal Tenderness, JVD, Lymphadenopathy, Bruit Respiratory/Chest: Positive for: Good Air Exchange, Decreased Breath Sounds. Negative for: Respiratory Distress, Accessory Muscle Use Cardiovascular: Positive for: Normal S1, S2, Peripheal Pulses Present, Tachycardic. Negative for: Murmurs, Irregular Rhythm Abdomen: Positive for: Normal Bowel Sounds. Negative for: Tenderness Upper Extremity: Positive for: NORMAL PULSES, Capillary Refill < 2s, Other (L arm presents w/o edema, normal pulses; Rt arm edema). Negative for: Cyanosis, Tenderness Lower Extremity: Positive for: Edema, NORMAL PULSES. Negative for: CALF TENDERNESS Neurological: Positive for: GCS=15, Other (full exam limited due to recent intubation) Skin: Positive for: Warm, Dry, Normal Color Psychiatric: Positive for: Alert, Oriented x 3 - Medications Active Medications: Active Medications Generic Name Dose Route Start Last Admin Trade Name Freq PRN Reason Stop Dose Admin Albuterol/Ipratropium 3 ml 07/14/16 09:31 07/16/16 07:43 Duoneb 3 Mg/0.5 Mg (3 Ml) Ud INH 3 ml RQ4 PRN Administration Shortness of Breath Anastrozole 1 mg 07/07/16 09:00 07/17/16 08:13 Arimidex 1 Mg Tab PO 1 mg DAILY [facility] Administration Enoxaparin Sodium 40 mg 07/16/16 13:15 07/17/16 08:13 Lovenox SC 40 mg DAILY [facility] Administration Protocol Gabapentin 600 mg 07/06/16 17:00 07/17/16 08:13 Neurontin PO 600 mg Q8 [facility] Administration Linezolid 300 mls @ 300 mls/hr 07/06/16 21:00 07/17/16 08:15 Zyvox 600mg/300ml D5w IVPB 300 mls/hr Q12 [facility] Administration Ceftazidime 1 gm/ Sodium 100 mls @ 200 mls/hr 07/13/16 01:00 07/17/16 08:16 Chloride IVPB 200 mls/hr Q8 [facility] Administration Fentanyl Citrate 2,500 mcg/ 250 mls @ 5.7 mls/hr 07/16/16 09:15 07/17/16 12:55 Dextrose IV 11.6 mls/hr .Q24H [facility] Administration Protocol Per Protocol Methylprednisolone 30 mg/ 50 mls @ 100 mls/hr 07/17/16 11:18 Sodium Chloride IV Q12 [facility] Lactobacillus Acidophilus 1 cap 07/06/16 17:00 07/17/16 08:14 Bacid Acidophilus PO 1 cap BID [facility] Administration Lorazepam 1 mg 07/13/16 19:32 07/16/16 15:39 Ativan IVP 1 mg Q4 PRN Administration Anxiety Methimazole 5 mg 07/14/16 09:00 07/17/16 08:14 Tapazole PO 5 mg DAILY [facility] Administration Morphine Sulfate 2 mg 07/12/16 08:54 07/16/16 07:40 Morphine IVP 2 mg Q2 PRN Administration Pain, moderate (4-7) Multi-Ingredient Cream 1 applic 07/06/16 17:00 07/17/16 08:17 Hydrocerin Cream TOP 1 applic BID [facility] Administration Nitroglycerin 1 in 07/06/16 16:00 07/17/16 10:30 Nitro-Bid 2% Oint TOP 1 in Q6 [facility] Administration Pantoprazole Sodium 40 mg 07/16/16 09:00 07/17/16 08:14 Protonix Inj IVP 40 mg DAILY [facility] Administration Spironolactone 25 mg 07/07/16 09:00 07/17/16 08:12 Aldactone PO 25 mg DAILY [facility] Administration Trimethoprim/Sulfamethoxazole 20 ml 07/17/16 21:00 Sulfatrim Pediatric Susp PO Q12 [facility] Zolpidem Tartrate 5 mg 07/06/16 11:55 07/11/16 22:47 Ambien PO 5 mg HS PRN Administration Sleep - Patient Studies Lab Studies: Lab Studies 07/17/16 07/17/16 Range/Units 06:00 05:03 WBC 4.9 (4.8-10.8) K/uL RBC 4.08 (3.80-5.20) Mil/uL Hgb 11.6 L (12.0-16.0) g/dL Hct 35.6 (34.0-47.0) % MCV 87.1 (81.0-99.0) fl MCH 28.4 (27.0-31.0) pg MCHC 32.6 L (33.0-37.0) g/dL RDW 24.7 H (11.5-14.5) % Plt Count 97 L (130-400) K/uL MPV 8.3 (7.2-11.7) fl Neut % (Auto) 93.0 H (50.0-75.0) % Lymph % (Auto) 4.4 L (20.0-40.0) % Dolores % (Auto) 2.6 (0.0-10.0) % Eos % (Auto) 0.0 (0.0-4.0) % Baso % (Auto) 0.0 (0.0-2.0) % Neut # 4.5 (1.8-7.0) K/uL Lymph # 0.2 L (1.0-4.3) K/uL Dolores # 0.1 (0.0-0.8) K/uL Eos # 0.0 (0.0-0.7) K/uL Baso # 0.0 (0.0-0.2) K/uL Neutrophils % (Manual) 90 H (42-75) % Band Neutrophils % 1 (0-2) % Lymphocytes % (Manual) 7 L (20-50) % Monocytes % (Manual) 2 (0-10) % Platelet Estimate Decreased L (NORMAL) Anisocytosis (manual) Slight Microcytosis (manual) Slight Macrocytosis (manual) Slight pCO2 60 H (35-45) mm/Hg pO2 115 H (80-100) mm/Hg HCO3 31.6 H (21-28) mmol/L ABG pH 7.38 (7.35-7.45) ABG Total CO2 37.3 H (22-28) mmol/L ABG O2 Saturation 98.7 H (95-98) % ABG O2 Content 15.7 (15-23) ML/dL ABG Base Excess 8.6 H (-2.0-3.0) mmol/L ABG Hemoglobin 11.5 L (11.7-17.4) g/dL ABG Carboxyhemoglobin 1.8 H (0.5-1.5) % POC ABG HHb (Measured) 1.3 (0.0-5.0) % ABG Methemoglobin 1.3 (0.0-3.0) % ABG O2 Capacity 15.9 L (16-24) mL/dL Tawanda Test Yes A-a O2 Difference 95.0 mm/Hg Hgb O2 Saturation 95.7 (95.0-98.0) % Vent Mode A/c Mechanical Rate 12 FiO2 40.0 % Tidal Volume 400 PEEP 5 Blood Gas Notified Time 506 Sodium 128 L (132-148) mmol/l Potassium 4.6 (3.6-5.0) MMOL/L Chloride 91 L (98-107) mmol/L Carbon Dioxide 31 H (22-30) mmol/L Anion Gap 11 (10-20) BUN 12 (7-17) mg/dl Creatinine 0.3 L (0.7-1.2) mg/dL Est GFR ( Amer) > 60 Est GFR (Non-Af Amer) > 60 Random Glucose 145 H (65-105) mg/dL Calcium 8.3 L (8.4-10.2) mg/dL Laboratory Results - last 24 hr 07/17/16 07/17/16 05:03 06:00 WBC 4.9 RBC 4.08 Hgb 11.6 L Hct 35.6 MCV 87.1 MCH 28.4 MCHC 32.6 L RDW 24.7 H Plt Count 97 L MPV 8.3 Neut % (Auto) 93.0 H Lymph % (Auto) 4.4 L Dolores % (Auto) 2.6 Eos % (Auto) 0.0 Baso % (Auto) 0.0 Neut # 4.5 Lymph # 0.2 L Dolores # 0.1 Eos # 0.0 Baso # 0.0 Neutrophils % (Manual) 90 H Band Neutrophils % 1 Lymphocytes % (Manual) 7 L Monocytes % (Manual) 2 Platelet Estimate Decreased L Anisocytosis (manual) Slight Microcytosis (manual) Slight Macrocytosis (manual) Slight pCO2 60 H pO2 115 H HCO3 31.6 H ABG pH 7.38 ABG Total CO2 37.3 H ABG O2 Saturation 98.7 H ABG O2 Content 15.7 ABG Base Excess 8.6 H ABG Hemoglobin 11.5 L ABG Carboxyhemoglobin 1.8 H POC ABG HHb (Measured) 1.3 ABG Methemoglobin 1.3 ABG O2 Capacity 15.9 L Tawanda Test Yes A-a O2 Difference 95.0 Hgb O2 Saturation 95.7 Vent Mode A/c Mechanical Rate 12 FiO2 40.0 Tidal Volume 400 PEEP 5 Blood Gas Notified Time 506 Sodium 128 L Potassium 4.6 Chloride 91 L Carbon Dioxide 31 H Anion Gap 11 BUN 12 Creatinine 0.3 L Est GFR ( Amer) > 60 Est GFR (Non-Af Amer) > 60 Random Glucose 145 H Calcium 8.3 L Assessment/Plan - Assessment and Plan (Free Text) Assessment: 1-Resp failure: hypoxic : atelactasis, pleural effusion, with multiple intubation and extubation and now intubated. no plan for weening now, trach on Tuesday On MV: On methyprednison 40 mg Iv q12 H Xopenex, On Zyvox, Fortaz and Bactrim on oral 2-Facial Abscess and mandibular osteomylitis: ID on board, antibiotics on fotaz, zyvox and bactrim 3-Edema; due to chonin infection causing low serum albumin 4-Hyponatremia: multifactorial: most likely hypotonic fluid/tube feeding intake. IV bactrim could be another possible cause. Will monitor if continue to drop, will add talt tabs with GT 5.Hx breast ca, bilateral stable, s/p bilateral mastectomy continue Arimidex 6-DVT prophylaxis: lovenox.
--- NOTE | 2016-07-17 19:05 | CP.PCM.PN ---
Subjective - Date & Time of Evaluation Date of Evaluation: 07/17/16 Time of Evaluation: 07:00 - Subjective Subjective: GENERAL SURGERY PROGRESS NOTE FOR DR. ROA Patient seen and examined in the ICU. She remains intubated and lightly sedated. She was anxious yesterday and her HR went up to the 150s. She was given ativan. She is now on a Fentanyl drip. HR is better but still tachycardic. Patient awakes to voice and is able to follow commands. She shakes her head no that she does not have any pain. FiO2 40% and PEEP 5 Objective - Vital Signs/Intake and Output Vital Signs (last 24 hours): Temp Pulse Resp BP Pulse Ox 98.3 F 104 H 18 106/65 97 07/17/16 16:00 07/17/16 18:00 07/17/16 16:00 07/17/16 18:00 07/17/16 18:00 - Medications Medications: Current Medications Albuterol/Ipratropium (Duoneb 3 Mg/0.5 Mg (3 Ml) Ud) 3 ml INH RQ4 PRN PRN Reason: Shortness of Breath Last Admin: 07/16/16 07:43 Dose: 3 ml Anastrozole (Arimidex 1 Mg Tab) 1 mg PO DAILY [facility] Last Admin: 07/17/16 08:13 Dose: 1 mg Enoxaparin Sodium (Lovenox) 40 mg SC DAILY [facility] PRN Reason: Protocol Last Admin: 07/17/16 08:13 Dose: 40 mg Gabapentin (Neurontin) 600 mg PO Q8 [facility] Last Admin: 07/17/16 16:51 Dose: 600 mg Linezolid (Zyvox 600mg/300ml D5w) 300 mls @ 300 mls/hr IVPB Q12 [facility] Last Admin: 07/17/16 08:15 Dose: 300 mls/hr Ceftazidime 1 gm/ Sodium (Chloride) 100 mls @ 200 mls/hr IVPB Q8 [facility] Last Admin: 07/17/16 16:50 Dose: 200 mls/hr Fentanyl Citrate 2,500 mcg/ (Dextrose) 250 mls @ 5.7 mls/hr IV .Q24H [facility]; Per Protocol PRN Reason: Protocol Last Admin: 07/17/16 12:55 Dose: 11.6 mls/hr Methylprednisolone 30 mg/ (Sodium Chloride) 50 mls @ 100 mls/hr IV Q12 [facility] Lactobacillus Acidophilus (Bacid Acidophilus) 1 cap PO BID [facility] Last Admin: 07/17/16 16:50 Dose: 1 cap Lorazepam (Ativan) 1 mg IVP Q4 PRN PRN Reason: Anxiety Last Admin: 07/16/16 15:39 Dose: 1 mg Methimazole (Tapazole) 5 mg PO DAILY [facility] Last Admin: 07/17/16 08:14 Dose: 5 mg Morphine Sulfate (Morphine) 2 mg IVP Q2 PRN PRN Reason: Pain, moderate (4-7) Last Admin: 07/16/16 07:40 Dose: 2 mg Multi-Ingredient Cream (Hydrocerin Cream) 1 applic TOP BID [facility] Last Admin: 07/17/16 16:52 Dose: 1 applic Nitroglycerin (Nitro-Bid 2% Oint) 1 in TOP Q6 [facility] Last Admin: 07/17/16 16:51 Dose: 1 in Pantoprazole Sodium (Protonix Inj) 40 mg IVP DAILY [facility] Last Admin: 07/17/16 08:14 Dose: 40 mg Spironolactone (Aldactone) 25 mg PO DAILY [facility] Last Admin: 07/17/16 08:12 Dose: 25 mg Trimethoprim/Sulfamethoxazole (Sulfatrim Pediatric Susp) 20 ml PO Q12 [facility] Zolpidem Tartrate (Ambien) 5 mg PO HS PRN PRN Reason: Sleep Last Admin: 07/11/16 22:47 Dose: 5 mg - Labs Labs: 07/17/16 06:00 07/17/16 06:00 PT 11.2 SECONDS (9.6-11.2) 07/09/16 08:00 INR 1.08 (0.92-1.08) 07/09/16 08:00 APTT 27.7 SECONDS (23.3-32.5) 07/09/16 08:00 - Constitutional Appears: Non-toxic, No Acute Distress, Chronically Ill - Eye Exam Eye Exam: EOMI, Normal appearance - Respiratory Exam Respiratory Exam: NORMAL BREATHING PATTERN (mechanical ventilation). absent: Respiratory Distress Additional comments: Ventilation settings: Peep 5, FiO2 40% - Cardiovascular Exam Cardiovascular Exam: +S1, +S2 - GI/Abdominal Exam GI & Abdominal Exam: Soft. absent: Tenderness - Neurological Exam Neurological Exam: Alert, Awake - Psychiatric Exam Psychiatric exam: Normal Affect, Normal Mood - Skin Skin Exam: Dry, Normal Color, Warm Assessment and Plan - Assessment and Plan (Free Text) Assessment: 66yoF with PMHx of COPD, bilateral breast cancer s/p chemo and radiation with respiratory failure, patient is currently intubated for the 3rd time this hospital admission, surgery is consulted for tracheostomy - Will plan for tracheostomy when HR is more stable - Cleared by cardiology for surgery - Continue care as per ICU team - Will discuss plan with Dr. Sumanth Franklin PGY-2
[2016-07-17] MEDS: methylPREDNISolone 30 MG in Sodium Chloride 0.9% 50 ML IV SCH (21:00)
[2016-07-17] MEDS: Tmp-Smz 200-40mg/5 ml Oral Sus(120 ml) PO SCH (21:58)
[2016-07-18] MEDS: Nitroglycerin 2% 1GM UD TOP SCH ×4 (05:00→22:06)
[2016-07-18 05:40] LABS: ABG ALLEN TEST YES; ABG MECHANICAL RATE 12; ARTERIAL BLOOD GAS HCO3 36.1 mmol/L (21-28); ARTERIAL BLOOD GAS MODE PRVC AC; ARTERIAL BLOOD GAS O2 CAPACITY 15.5 mL/dL (16-24); ARTERIAL BLOOD GAS O2 CONTENT 15.4 ML/dL (15-23); ARTERIAL BLOOD GAS PH 7.46 (7.35-7.45); ARTERIAL BLOOD GAS PO2 105 mm/Hg (80-100); ARTERIAL BLOOD HGB O2 SAT 96.1 % (95.0-98.0); ATERIAL BLOOD GAS PEEP 5; CARBOXYHEMOGLOBIN 2.2 % (0.5-1.5); HHB 0.6 % (0.0-5.0); METHEMOGLOBIN 1.1 % (0.0-3.0)
[2016-07-18] MEDS: Fentanyl Citrate 2,500 MCG in Dextrose 5% In Water 200 ML IV SCH (05:45)
[2016-07-18 06:36] LABS: HEMATOCRIT 35.5 % (34.0-47.0); MEAN CELL VOLUME 86.6 fl (81.0-99.0); MEAN CORPUSCULAR HEMOGLOBIN 28.1 pg (27.0-31.0); MEAN CORPUSCULAR HGB CONC 32.5 g/dL (33.0-37.0); RED CELL DISTRIBUTION WIDTH 24.3 % (11.5-14.5); WHITE BLOOD COUNT 5.9 K/uL (4.8-10.8)
[2016-07-18 06:43] LABS: BLOOD UREA NITROGEN 14 mg/dl (7-17); CALCIUM 8.6 mg/dL (8.4-10.2); CARBON DIOXIDE 37 mmol/L (22-30); CHLORIDE 91 mmol/L (98-107); GFR AFRICAN-AMERICAN > 60; GLUCOSE,RANDOM 106 mg/dL (65-105); SODIUM 130 mmol/l (132-148)
[2016-07-18 06:46] LABS: POTASSIUM 5.1 MMOL/L (3.6-5.0)
[2016-07-18] MEDS: Tmp-Smz 200-40mg/5 ml Oral Sus(120 ml) PO SCH ×2 (08:51→22:05)
[2016-07-18] MEDS: Enoxaparin 40 mg Syringe SC SCH (08:52)
[2016-07-18] MEDS: Lactobacillus Acidophilus 500 MU Cap PO SCH ×2 (08:53→16:58)
[2016-07-18] MEDS: Hydrocerin CREAM TOP SCH ×2 (08:54→17:03)
[2016-07-18] MEDS: methylPREDNISolone 30 MG in Sodium Chloride 0.9% 50 ML IV SCH ×2 (08:55→20:05)
[2016-07-18] MEDS: Linezolid 600 mg in D5W 300 ml 300 ML IVPB SCH ×2 (08:56→20:06)
[2016-07-18] MEDS: methIMAzole 5 MG TAB PO SCH (08:56)
--- NOTE | 2016-07-18 09:15 | CP.PCM.PN ---
Subjective - Date & Time of Evaluation Date of Evaluation: 07/18/16 Time of Evaluation: 09:30 - Subjective Subjective: Patient seen and evaluated bedside. Chronically ill female , intubated on MV PRVC/ Ac mode 12/400/5 /40% saturating well 98 % ABG 57/105/36/7.46 Awake . alert , oriented , answering questions and following commands. Denies any pain at present BP stable 115/72 still tachycardic HR 114 but better, afebrile On Fentanyl drip for pain control and sedation no acute issues overnight WBC 3.9 Hgb 11.5 Plt 93 K 5.1 ,Na 130 Objective - Vital Signs/Intake and Output Vital Signs (last 24 hours): Temp Pulse Resp BP Pulse Ox 98.3 F 95 H 12 115/72 99 07/18/16 08:00 07/18/16 08:00 07/18/16 08:00 07/18/16 08:00 07/18/16 08:00 Intake and Output: 07/18/16 07/18/16 06:59 18:59 Intake Total Output Total Balance - Medications Medications: Current Medications Albuterol/Ipratropium (Duoneb 3 Mg/0.5 Mg (3 Ml) Ud) 3 ml INH RQ4 PRN PRN Reason: Shortness of Breath Last Admin: 07/16/16 07:43 Dose: 3 ml Anastrozole (Arimidex 1 Mg Tab) 1 mg PO DAILY [facility] Last Admin: 07/18/16 08:57 Dose: 1 mg Enoxaparin Sodium (Lovenox) 40 mg SC DAILY [facility] PRN Reason: Protocol Last Admin: 07/18/16 08:52 Dose: 40 mg Gabapentin (Neurontin) 600 mg PO Q8 [facility] Last Admin: 07/18/16 08:55 Dose: 600 mg Linezolid (Zyvox 600mg/300ml D5w) 300 mls @ 300 mls/hr IVPB Q12 [facility] Last Admin: 07/18/16 08:56 Dose: 300 mls/hr Ceftazidime 1 gm/ Sodium (Chloride) 100 mls @ 200 mls/hr IVPB Q8 [facility] Last Admin: 07/18/16 08:54 Dose: 200 mls/hr Fentanyl Citrate 2,500 mcg/ (Dextrose) 250 mls @ 5.7 mls/hr IV .Q24H [facility]; Per Protocol PRN Reason: Protocol Last Admin: 07/18/16 05:45 Dose: 17.4 mls/hr Methylprednisolone 30 mg/ (Sodium Chloride) 50 mls @ 100 mls/hr IV Q12 [facility] Last Admin: 07/18/16 08:55 Dose: 100 mls/hr Lactobacillus Acidophilus (Bacid Acidophilus) 1 cap PO BID [facility] Last Admin: 07/18/16 08:53 Dose: 1 cap Lorazepam (Ativan) 1 mg IVP Q4 PRN PRN Reason: Anxiety Last Admin: 07/17/16 22:09 Dose: 1 mg Methimazole (Tapazole) 5 mg PO DAILY [facility] Last Admin: 07/18/16 08:56 Dose: 5 mg Morphine Sulfate (Morphine) 2 mg IVP Q2 PRN PRN Reason: Pain, moderate (4-7) Last Admin: 07/16/16 07:40 Dose: 2 mg Multi-Ingredient Cream (Hydrocerin Cream) 1 applic TOP BID [facility] Last Admin: 07/18/16 08:54 Dose: 1 applic Nitroglycerin (Nitro-Bid 2% Oint) 1 in TOP Q6 [facility] Last Admin: 07/18/16 05:00 Dose: 1 in Pantoprazole Sodium (Protonix Inj) 40 mg IVP DAILY [facility] Last Admin: 07/18/16 08:52 Dose: 40 mg Spironolactone (Aldactone) 25 mg PO DAILY [facility] Last Admin: 07/18/16 08:52 Dose: 25 mg Trimethoprim/Sulfamethoxazole (Sulfatrim Pediatric Susp) 20 ml PO Q12 [facility] Last Admin: 07/18/16 08:51 Dose: 20 ml Zolpidem Tartrate (Ambien) 5 mg PO HS PRN PRN Reason: Sleep Last Admin: 07/11/16 22:47 Dose: 5 mg - Labs Labs: 07/18/16 06:15 07/18/16 06:15 PT 11.2 SECONDS (9.6-11.2) 07/09/16 08:00 INR 1.08 (0.92-1.08) 07/09/16 08:00 APTT 27.7 SECONDS (23.3-32.5) 07/09/16 08:00 - Constitutional Appears: Chronically Ill, Other (intubated on MV , awake alert and oriented) - Head Exam Head Exam: ATRAUMATIC, NORMOCEPHALIC Additional comments: minimal leaking from right facial abscess - Eye Exam Eye Exam: EOMI, Normal appearance, PERRL Pupil Exam: NORMAL ACCOMODATION - ENT Exam ENT Exam: Mucous Membranes Moist, Normal Exam - Neck Exam Neck Exam: Full ROM, Normal Inspection - Respiratory Exam Respiratory Exam: Decreased Breath Sounds (bibasilary), Clear to Ausculation Bilateral. absent: Rhonchi, Wheezes, Respiratory Distress - Cardiovascular Exam Cardiovascular Exam: Tachycardia, +S1, +S2. absent: JVD - GI/Abdominal Exam GI & Abdominal Exam: Soft, Normal Bowel Sounds. absent: Distended, Guarding, Tenderness, Rebound - Rectal Exam Rectal Exam: Deferred - Extremities Exam Extremities Exam: Pedal Edema Additional comments: weeping thigh edema 3 +,more on the lateral aspect og right knee , small laceration present - Neurological Exam Neurological Exam: Alert, Awake, CN II-XII Intact, Oriented x3 - Psychiatric Exam Psychiatric exam: Normal Affect - Skin Skin Exam: Dry, Pallor, Warm Additional comments: small skin tear to lateral aspect of right knee upper chest and LUE echymotic areas RUE lympedema Assessment and Plan - Assessment and Plan (Free Text) Assessment: 66 y/o female PMH COPD, bilateral breast CA s/p chemo and radiation 8 years ago , HTN, Hyperthyroidism presented with 2 week history of worsening bilateral lower extremity swelling and weakness, unable to get herself up to her walker. Patient has mild dyspnea at baseline. She also came with a large right facial swelling for almost 2 weeks and was taking PO antibiotics prescribed by her dentist. Patient was admitted for generalized weakness , Hyponatremia and Facial abscess. She was started on IV antibiotics for facial abscess and Lasix IV with fluid restriction for LE edema. Maxillofacial Ct showed possible abscess accumulation. Evaluated by Oromaxillofacial surgeon and underwent Incision and drainage of abscess. Bone scan showed possible osteomyelitis . ID recommends 4-6 wks IV abx treatment. During this hospitalization noted to have increased dyspnea at rest and more so with minimal activity, decreased air entry bilaterally and increased work of breathing. She was started on high flow O2, Higher doses of theophylline and IV hydrocortisone. CTA chest and LE doppler showed no DVT. She was transferred to ICU for close monitoring for tachypnea and tachycardia. She underwent IR drainage on 06/24 of right facial abscess due to reaccumulation and cultures came positive for VRE and bria. Antibiotics were changed to Zyvox , Meropenem and Fluconazone. Despite drainage and IV antibiotics she still kept complaining of pain to right supramandibular area with increased swelling. Repeat CT showed abscess formation. Patient underwent I&D in OR 07/06/16 with ginger drainage placement. She continues to have episodes of resp distress - tachypneic , tachycardic , with chest congestion , unable to expectorate despite high flow O2 therapy, Duonebs and Corticosteroids. 07/07/16 underwent Bronchoscopy. BAL showed Stenotrophomonas Maltophilia. Antibiotics changed to IV bactrim, Fortaz, Zyvox and Fluconazole. On 07/09 she developed severe respiratory distress with hypoxemia requiring intubation and extubated on 07/14. 07/15 : again noted to be in resp distress, tachypneic , tachycardic so was reintubated. Plan for Tracheostomy and LTACH 1. Acute on Chronic Respiratory Failure with hypercapnea Multiple trials of intubation and extubation this admission .Still intubated on MV PRVC/ Ac mode 12/400/5/40 % Intubated on 07/09 and extubated 07/14 however again reintubated 07/16 for resp distress Patient would need tracheostomy Surgery: Dr Julio consulted- Plan for Trach on Tuesday- cleared by Dr Luu for the procedure Pulmonary: Dr Benz, is following pt closely s/p bronchoscopy 07/07/16 with BAL growing Stenotrophomonas maltophilla. Continue bactrim, Fortaz, and zyvox as per ID on Methylprednisone 40 mg Iv q12, Xopenex, albuterol and tiotropium inhaler 2. Chest Pain , prob sec to Anxiety, ACS ruled out with recurrent pressure like chest pain on and off cardiology consulted Dr. Luu Trop -- negative and EKG showed no ST-T wave changes Most likely atypical chest pain related to anxiety , hypokalemia and COPD, no signs of ischemia Pain mgt consulted- Dr Verdugo Pt is on fentanyl drip Ativan prn 3. Facial abscess with mandibular Osteomyelitis s/p drainage of abscess with penreose drain placement s/p Incision and drainage on 06/[address] Anderson maxillofacial surgeon and rpt I&D 07/06 pathology report showed inflammatory cells, no malignancy Nuclear Bone Scan suggestive of osteomyelitis initial cultures were with no growth ID consult with Dr Obrien appreciated . 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 Cultures reported as VRE and Bria Ginger drain d/c by dr Ambrose on Zyvox , Bactrim, Fortaz Discontinued Fluconazole due to abnormal LFT-s 4. Bilateral LE edema sec to CHF exacerbation with diastolic dysfxn Echo showed EF 40-45 % and dilated RV continue fluid restriction Promote ambulation once better cont Aldactone 5. Hypokalemia multifactorial diuretic induced , Albuterol, Hypothyroidism and GI loss off Lasix, on Aldactone Continue KCl runs and PO replacement as needed Nephro consult appreciated CT of abd showed no adrenal mass 6 .Hyponatremia most likely secondary to solute depletion and infection Continue fluid restriction 7.Hx breast ca, bilateral stable, s/p bilateral mastectomy continue Arimidex 8. Tachycardia -- multifactorial Hx of HTN was on verapamil at home ( 80mg tid) but decreased dose due to low BP and now discontinued as may contribute to leg edema- discussed with Dr Turcios- restarted Verapamil low dose continue monitoring patient with high levels of anxiety and pain called Dr Verdugo for Pain mgt , discussed case Pt on Fentanyl drip 9. Hypothyroidism/ Hyperthyroidism patient has history of hyperthyroidism , was on Methimazole and noticed to had developed hypothyroidism so Methimazole was d/c and she was started on Po levothyroxine this admission , TSH then went down and Metrhimazole restarted Methimazole 5 mg po daily restarted as discussed with Dr Vu 10. Anemia, chronic dis monitor anemia work up showed depleted iron stores Venofer IV given s/p 2 units PRBC transfusion 11. Right cephalic vein thrombosis ( superficial vein) no need for therapeutic anticoag 12.Thrombocytopenia plt 97 K Most likely related to bone marrow suppression and multiple medication use Continue monitoring 13.DVT ppx on lovenox
--- NOTE | 2016-07-18 10:06 | RAD ---
PROCEDURE: CHEST RADIOGRAPH, 1 VIEW HISTORY: intubated COMPARISON: Comparison chest 07/17/2016. FINDINGS: LUNGS: ETT tip lies at approximately at the level of the upper portion of the aortic arch ; note that the dina is poorly identified. NGT is present, the the tip of which has not been included on this film though distal aspect does lie well below EG junction. No change right IJ MediPort. Bibasilar opacities likely represent some combination of atelectasis/infiltrate and effusions. PLEURA: No apparent pneumothorax. . CARDIOVASCULAR: Normal. OSSEOUS STRUCTURES: Persistent deformity right humerus and right scapula. VISUALIZED UPPER ABDOMEN: Normal. OTHER FINDINGS: None. IMPRESSION: Support lines and tubes as above. Bibasilar opacities likely represent some combination of atelectasis/ infiltrate and effusions.
--- NOTE | 2016-07-18 10:16 | CP.CCUPN ---
CCU Subjective - Physician Review Events Since Last Encounter (Free Text): 07/18/16 10:14 awake, on vent, still has ST, probably from anxiety, CCU Objective - Vital Signs / Intake & Output Vital Signs (Last 4 hours): Vital Signs Temp Pulse Resp BP Pulse Ox 07/18/16 08:00 98.3 F 95 H 12 115/72 99 07/18/16 07:00 96 H 18 103/61 99 Intake and Output (Last 8hrs): Intake & Output 07/17/16 07/18/16 07/18/16 21:59 06:59 14:59 Intake Total Output Total Balance Intake: IV Intake, Piggyback Tube Feeding Free Water Flush Output: Gastric Amount Stomach Urine Urethral (Gutierrez) Other: # Bowel Movements - Physical Exam Narrative Physical Exam (Free Text): 07/18/16 10:15 P/E Neck: No JVD Lungs: rt base, crackles Abdomen: soft, non-tender Ext: +1 edema Philippe: no gallop Head: Positive for: Atraumatic, Swelling (R mandible, improving). Negative for : Ecchymosis Pupils: Positive for: PERRL. Negative for: Sluggish, Non-Reactive Extroacular Muscles: Positive for: EOMI. Negative for: Gaze Palsy, Entrapment Conjunctiva: Positive for: Normal Mouth: Positive for: Moist Mucous Membranes Pharnyx: Positive for: Normal Nose (External): Positive for: Atraumatic Nose (Internal): Positive for: Normal Inspection Neck: Positive for: Trachea Midline. Negative for: MIDLINE TENDERNESS, Paraspinal Tenderness, JVD, Lymphadenopathy, Bruit Respiratory/Chest: Positive for: Good Air Exchange, Decreased Breath Sounds. Negative for: Respiratory Distress, Accessory Muscle Use Cardiovascular: Positive for: Normal S1, S2, Peripheal Pulses Present, Tachycardic. Negative for: Murmurs, Irregular Rhythm Abdomen: Positive for: Normal Bowel Sounds. Negative for: Tenderness Upper Extremity: Positive for: NORMAL PULSES, Capillary Refill < 2s, Other (L arm presents w/o edema, normal pulses; Rt arm edema). Negative for: Cyanosis, Tenderness Lower Extremity: Positive for: Edema, NORMAL PULSES. Negative for: CALF TENDERNESS Neurological: Positive for: GCS=15, Other (full exam limited due to recent intubation) Skin: Positive for: Warm, Dry, Normal Color Psychiatric: Positive for: Alert, Oriented x 3 - Medications Active Medications: Active Medications Generic Name Dose Route Start Last Admin Trade Name Freq PRN Reason Stop Dose Admin Albuterol/Ipratropium 3 ml 07/14/16 09:31 07/16/16 07:43 Duoneb 3 Mg/0.5 Mg (3 Ml) Ud INH 3 ml RQ4 PRN Administration Shortness of Breath Alprazolam 0.25 mg 07/18/16 21:00 Xanax PO 07/25/16 21:01 Q12 ANDREAS Anastrozole 1 mg 07/07/16 09:00 07/18/16 08:57 Arimidex 1 Mg Tab PO 1 mg DAILY ANDREAS Administration Enoxaparin Sodium 40 mg 07/16/16 13:15 07/18/16 08:52 Lovenox SC 40 mg DAILY ANDREAS Administration Protocol Gabapentin 600 mg 07/06/16 17:00 07/18/16 08:55 Neurontin PO 600 mg Q8 ANDREAS Administration Linezolid 300 mls @ 300 mls/hr 07/06/16 21:00 07/18/16 08:56 Zyvox 600mg/300ml D5w IVPB 300 mls/hr Q12 ANDREAS Administration Ceftazidime 1 gm/ Sodium 100 mls @ 200 mls/hr 07/13/16 01:00 07/18/16 08:54 Chloride IVPB 200 mls/hr Q8 ANDREAS Administration Fentanyl Citrate 2,500 mcg/ 250 mls @ 5.7 mls/hr 07/16/16 09:15 07/18/16 05:45 Dextrose IV 17.4 mls/hr .Q24H ANDREAS Administration Protocol Per Protocol Methylprednisolone 30 mg/ 50 mls @ 100 mls/hr 07/17/16 11:18 07/18/16 08:55 Sodium Chloride IV 100 mls/hr Q12 ANDREAS Administration Lactobacillus Acidophilus 1 cap 07/06/16 17:00 07/18/16 08:53 Bacid Acidophilus PO 1 cap BID ANDREAS Administration Lorazepam 1 mg 07/13/16 19:32 07/17/16 22:09 Ativan IVP 1 mg Q4 PRN Administration Anxiety Methimazole 5 mg 07/14/16 09:00 07/18/16 08:56 Tapazole PO 5 mg DAILY ANDRE[facility] Administration Morphine Sulfate 2 mg 07/12/16 08:54 07/16/16 07:40 Morphine IVP 2 mg Q2 PRN Administration Pain, moderate (4-7) Multi-Ingredient Cream 1 applic 07/06/16 17:00 07/18/16 08:54 Hydrocerin Cream TOP 1 applic BID ANDREAS Administration Nitroglycerin 1 in 07/06/16 16:00 07/18/16 09:27 Nitro-Bid 2% Oint TOP 1 in Q6 ANDREAS Administration Pantoprazole Sodium 40 mg 07/16/16 09:00 07/18/16 08:52 Protonix Inj IVP 40 mg DAILY ANDRE[facility] Administration Spironolactone 25 mg 07/07/16 09:00 07/18/16 08:52 Aldactone PO 25 mg DAILY ANDRE[facility] Administration Trimethoprim/Sulfamethoxazole 20 ml 07/17/16 21:00 07/18/16 08:51 Sulfatrim Pediatric Susp PO 20 ml Q12 ANDREAS Administration - Patient Studies Lab Studies: Lab Studies 07/18/16 07/18/16 07/17/16 Range/Units 06:15 05:32 16:46 WBC 5.9 (4.8-10.8) K/uL RBC 4.10 (3.80-5.20) Mil/uL Hgb 11.5 L (12.0-16.0) g/dL Hct 35.5 (34.0-47.0) % MCV 86.6 (81.0-99.0) fl MCH 28.1 (27.0-31.0) pg MCHC 32.5 L (33.0-37.0) g/dL RDW 24.3 H (11.5-14.5) % Plt Count 93 L (130-400) K/uL Neutrophils % (Manual) (42-75) % Band Neutrophils % (0-2) % Lymphocytes % (Manual) (20-50) % Monocytes % (Manual) (0-10) % Platelet Estimate (NORMAL) Anisocytosis (manual) Microcytosis (manual) Macrocytosis (manual) pCO2 57 H (35-45) mm/Hg pO2 105 H (80-100) mm/Hg HCO3 36.1 H (21-28) mmol/L ABG pH 7.46 H (7.35-7.45) ABG Total CO2 42.2 H (22-28) mmol/L ABG O2 Saturation 99.4 H (95-98) % ABG O2 Content 15.4 (15-23) ML/dL ABG Base Excess 14.4 H (-2.0-3.0) mmol/L ABG Hemoglobin 11.3 L (11.7-17.4) g/dL ABG Carboxyhemoglobin 2.2 H (0.5-1.5) % POC ABG HHb (Measured) 0.6 (0.0-5.0) % ABG Methemoglobin 1.1 (0.0-3.0) % ABG O2 Capacity 15.5 L (16-24) mL/dL Tawanda Test Yes A-a O2 Difference 109.0 mm/Hg Hgb O2 Saturation 96.1 (95.0-98.0) % Vent Mode Prvc ac Mechanical Rate 12 FiO2 40.0 % Tidal Volume 400 PEEP 5 Sodium 130 L (132-148) mmol/l Potassium 5.1 H (3.6-5.0) MMOL/L Chloride 91 L (98-107) mmol/L Carbon Dioxide 37 H (22-30) mmol/L Anion Gap 7 L (10-20) BUN 14 (7-17) mg/dl Creatinine 0.3 L (0.7-1.2) mg/dL Est GFR ( Amer) > 60 Est GFR (Non-Af Amer) > 60 POC Glucose (mg/dL) 100 (65-110) mg/dL Random Glucose 106 H (65-105) mg/dL Calcium 8.6 (8.4-10.2) mg/dL 07/17/16 Range/Units 06:00 WBC (4.8-10.8) K/uL RBC (3.80-5.20) Mil/uL Hgb (12.0-16.0) g/dL Hct (34.0-47.0) % MCV (81.0-99.0) fl MCH (27.0-31.0) pg MCHC (33.0-37.0) g/dL RDW (11.5-14.5) % Plt Count (130-400) K/uL Neutrophils % (Manual) 90 H (42-75) % Band Neutrophils % 1 (0-2) % Lymphocytes % (Manual) 7 L (20-50) % Monocytes % (Manual) 2 (0-10) % Platelet Estimate Decreased L (NORMAL) Anisocytosis (manual) Slight Microcytosis (manual) Slight Macrocytosis (manual) Slight pCO2 (35-45) mm/Hg pO2 (80-100) mm/Hg HCO3 (21-28) mmol/L ABG pH (7.35-7.45) ABG Total CO2 (22-28) mmol/L ABG O2 Saturation (95-98) % ABG O2 Content (15-23) ML/dL ABG Base Excess (-2.0-3.0) mmol/L ABG Hemoglobin (11.7-17.4) g/dL ABG Carboxyhemoglobin (0.5-1.5) % POC ABG HHb (Measured) (0.0-5.0) % ABG Methemoglobin (0.0-3.0) % ABG O2 Capacity (16-24) mL/dL Tawanda Test A-a O2 Difference mm/Hg Hgb O2 Saturation (95.0-98.0) % Vent Mode Mechanical Rate FiO2 % Tidal Volume PEEP Sodium (132-148) mmol/l Potassium (3.6-5.0) MMOL/L Chloride (98-107) mmol/L Carbon Dioxide (22-30) mmol/L Anion Gap (10-20) BUN (7-17) mg/dl Creatinine (0.7-1.2) mg/dL Est GFR ( Amer) Est GFR (Non-Af Amer) POC Glucose (mg/dL) (65-110) mg/dL Random Glucose (65-105) mg/dL Calcium (8.4-10.2) mg/dL Laboratory Results - last 24 hr 07/17/16 07/17/16 07/18/16 06:00 16:46 05:32 WBC RBC Hgb Hct MCV MCH MCHC RDW Plt Count Neutrophils % (Manual) 90 H Band Neutrophils % 1 Lymphocytes % (Manual) 7 L Monocytes % (Manual) 2 Platelet Estimate Decreased L Anisocytosis (manual) Slight Microcytosis (manual) Slight Macrocytosis (manual) Slight pCO2 57 H pO2 105 H HCO3 36.1 H ABG pH 7.46 H ABG Total CO2 42.2 H ABG O2 Saturation 99.4 H ABG O2 Content 15.4 ABG Base Excess 14.4 H ABG Hemoglobin 11.3 L ABG Carboxyhemoglobin 2.2 H POC ABG HHb (Measured) 0.6 ABG Methemoglobin 1.1 ABG O2 Capacity 15.5 L Tawanda Test Yes A-a O2 Difference 109.0 Hgb O2 Saturation 96.1 Vent Mode Prvc ac Mechanical Rate 12 FiO2 40.0 Tidal Volume 400 PEEP 5 Sodium Potassium Chloride Carbon Dioxide Anion Gap BUN Creatinine Est GFR ( Amer) Est GFR (Non-Af Amer) POC Glucose (mg/dL) 100 Random Glucose Calcium 07/18/16 06:15 WBC 5.9 RBC 4.10 Hgb 11.5 L Hct 35.5 MCV 86.6 MCH 28.1 MCHC 32.5 L RDW 24.3 H Plt Count 93 L Neutrophils % (Manual) Band Neutrophils % Lymphocytes % (Manual) Monocytes % (Manual) Platelet Estimate Anisocytosis (manual) Microcytosis (manual) Macrocytosis (manual) pCO2 pO2 HCO3 ABG pH ABG Total CO2 ABG O2 Saturation ABG O2 Content ABG Base Excess ABG Hemoglobin ABG Carboxyhemoglobin POC ABG HHb (Measured) ABG Methemoglobin ABG O2 Capacity Tawanda Test A-a O2 Difference Hgb O2 Saturation Vent Mode Mechanical Rate FiO2 Tidal Volume PEEP Sodium 130 L Potassium 5.1 H Chloride 91 L Carbon Dioxide 37 H Anion Gap 7 L BUN 14 Creatinine 0.3 L Est GFR ( Amer) > 60 Est GFR (Non-Af Amer) > 60 POC Glucose (mg/dL) Random Glucose 106 H Calcium 8.6 Assessment/Plan - Assessment and Plan (Free Text) Assessment: Assessment/Plan - Assessment and Plan (Free Text) Assessment: 1-Resp failure: hypoxic : atelactasis, pleural effusion, with multiple intubation and extubation and now intubated. no plan for weening now, trach on Tuesday On MV: On methyprednison 40 mg Iv q12 H Xopenex, On Zyvox, Fortaz and Bactrim on oral 2-Facial Abscess and mandibular osteomylitis: ID on board, antibiotics on fotaz, zyvox and bactrim 3-Edema; due to chonin infection causing low serum albumin 4-Hyponatremia: multifactorial: most likely hypotonic fluid/tube feeding intake , volume overload, IV bactrim could be another possible cause. Will monitor if continue to drop, will add talt tabs with GT, will start low dose lasix to increase free water excretion and to improve serum sodium 5.Hx breast ca, bilateral stable, s/p bilateral mastectomy continue Arimidex 6-DVT prophylaxis: lovenox. 7-Anxiety: Rowdy gillespie, started xanax.
--- NOTE | 2016-07-18 10:43 | CP.PCM.PN ---
Subjective - Date & Time of Evaluation Date of Evaluation: 07/18/16 Time of Evaluation: 08:00 - Subjective Subjective: GENERAL SURGERY PROGRESS NOTE FOR DR. COOPER Patient seen and examined in the ICU. She remains intubated and lightly sedated. She remains on a Fentanyl drip. On tube feeds. HR is better, around 90s. Platelets remain low, 93 today. Ventilation settings: FiO2 40% and PEEP 5. Objective - Vital Signs/Intake and Output Vital Signs (last 24 hours): Temp Pulse Resp BP Pulse Ox 98.3 F 95 H 12 111/74 99 07/18/16 08:00 07/18/16 08:00 07/18/16 08:00 07/18/16 10:26 07/18/16 08:00 Intake and Output: 07/18/16 07/18/16 06:59 18:59 Intake Total Output Total Balance - Medications Medications: Current Medications Albuterol/Ipratropium (Duoneb 3 Mg/0.5 Mg (3 Ml) Ud) 3 ml INH RQ4 PRN PRN Reason: Shortness of Breath Last Admin: 07/16/16 07:43 Dose: 3 ml Alprazolam (Xanax) 0.25 mg PO Q12 [facility] Stop: 07/25/16 10:31 Last Admin: 07/18/16 10:27 Dose: 0.25 mg Anastrozole (Arimidex 1 Mg Tab) 1 mg PO DAILY [facility] Last Admin: 07/18/16 08:57 Dose: 1 mg Enoxaparin Sodium (Lovenox) 40 mg SC DAILY ANDREAS PRN Reason: Protocol Last Admin: 07/18/16 08:52 Dose: 40 mg Furosemide (Lasix) 20 mg IVP DAILY [facility] Last Admin: 07/18/16 10:26 Dose: 20 mg Gabapentin (Neurontin) 600 mg PO Q8 [facility] Last Admin: 07/18/16 08:55 Dose: 600 mg Linezolid (Zyvox 600mg/300ml D5w) 300 mls @ 300 mls/hr IVPB Q12 [facility] Last Admin: 07/18/16 08:56 Dose: 300 mls/hr Ceftazidime 1 gm/ Sodium (Chloride) 100 mls @ 200 mls/hr IVPB Q8 [facility] Last Admin: 07/18/16 08:54 Dose: 200 mls/hr Fentanyl Citrate 2,500 mcg/ (Dextrose) 250 mls @ 5.7 mls/hr IV .Q24H ANDREAS; Per Protocol PRN Reason: Protocol Last Admin: 07/18/16 05:45 Dose: 17.4 mls/hr Methylprednisolone 30 mg/ (Sodium Chloride) 50 mls @ 100 mls/hr IV Q12 [facility] Last Admin: 07/18/16 08:55 Dose: 100 mls/hr Lactobacillus Acidophilus (Bacid Acidophilus) 1 cap PO BID [facility] Last Admin: 07/18/16 08:53 Dose: 1 cap Lorazepam (Ativan) 1 mg IVP Q4 PRN PRN Reason: Anxiety Last Admin: 07/17/16 22:09 Dose: 1 mg Methimazole (Tapazole) 5 mg PO DAILY [facility] Last Admin: 07/18/16 08:56 Dose: 5 mg Morphine Sulfate (Morphine) 2 mg IVP Q2 PRN PRN Reason: Pain, moderate (4-7) Last Admin: 07/16/16 07:40 Dose: 2 mg Multi-Ingredient Cream (Hydrocerin Cream) 1 applic TOP BID [facility] Last Admin: 07/18/16 08:54 Dose: 1 applic Nitroglycerin (Nitro-Bid 2% Oint) 1 in TOP Q6 [facility] Last Admin: 07/18/16 09:27 Dose: 1 in Pantoprazole Sodium (Protonix Inj) 40 mg IVP DAILY [facility] Last Admin: 07/18/16 08:52 Dose: 40 mg Spironolactone (Aldactone) 25 mg PO DAILY [facility] Last Admin: 07/18/16 08:52 Dose: 25 mg Trimethoprim/Sulfamethoxazole (Sulfatrim Pediatric Susp) 20 ml PO Q12 [facility] Last Admin: 07/18/16 08:51 Dose: 20 ml - Labs Labs: 07/18/16 06:15 07/18/16 06:15 PT 11.2 SECONDS (9.6-11.2) 07/09/16 08:00 INR 1.08 (0.92-1.08) 07/09/16 08:00 APTT 27.7 SECONDS (23.3-32.5) 07/09/16 08:00 - Constitutional Appears: Non-toxic, No Acute Distress, Chronically Ill - Respiratory Exam Respiratory Exam: NORMAL BREATHING PATTERN (on mechanical ventilation) Additional comments: Peep 5, FiO2 40% - Cardiovascular Exam Cardiovascular Exam: +S1, +S2 - GI/Abdominal Exam GI & Abdominal Exam: Soft. absent: Tenderness Assessment and Plan - Assessment and Plan (Free Text) Assessment: 66yoF with PMHx of COPD, bilateral breast cancer s/p chemo and radiation with respiratory failure, patient is currently intubated for the 3rd time this hospital admission, surgery is consulted for tracheostomy - HR more stable in 90s now - Continues to have thrombocytopenia, 93 today, too low for surgery - Possible tracheostomy tomorrow pending platelets - Ordered repeat type and screen - Ordered platelets to be on hold for possible surgery tomorrow, spoke with blood bank, should arrive early tomorrow morning - Cleared by cardiology for surgery - Continue care as per ICU team - Discussed plan with Dr. Ap Franklin PGY-2
--- NOTE | 2016-07-18 13:09 | PN ---
DATE: 07/18/2016 ROOM: 434, ICU. This is a 66-year-old female with known history of hyperthyroidism, currently on a low dose medical t herapy with Tapazole 5 mg as tolerated and given. She also is being followed closely in the ICU for hemodynamic monitoring because of a recent acute exacerbation of COPD and congestive heart failure as noted. Her latest chemistry showed a BUN of 14, sodium 130, potassium 5.1, chloride 91, CO2 37, glucose 106 and creatinine 0.3. Her repeat thyroid study showed a TSH of 0.51, which has improved remarkably sin ce admission. So at this time, we will continue the low-dose Tapazole given as 5 mg once daily as ordered. We will titrate incrementally as indicated to optimize metabolic control. We will follow and advise loretta linn. Polly Vu MD cc: [id number] TT: 07/18/2016 13:08:34 Confirmation # [id number] Dictation # [id number]
[2016-07-19] MEDS: Fentanyl Citrate 2,500 MCG in Dextrose 5% In Water 200 ML IV SCH (03:06)
[2016-07-19] MEDS: Nitroglycerin 2% 1GM UD TOP SCH ×4 (03:08→21:49)
[2016-07-19 05:19] LABS: ABG ALLEN TEST YES; ABG MECHANICAL RATE 12; ARTERIAL BLOOD GAS HCO3 37.9 mmol/L (21-28); ARTERIAL BLOOD GAS MODE A/C; ARTERIAL BLOOD GAS O2 CAPACITY 17.2 mL/dL (16-24); ARTERIAL BLOOD GAS PH 7.45 (7.35-7.45); ARTERIAL BLOOD GAS PO2 115 mm/Hg (80-100); ARTERIAL BLOOD HGB O2 SAT 95.7 % (95.0-98.0); ATERIAL BLOOD GAS PEEP 5; CARBOXYHEMOGLOBIN 2.1 % (0.5-1.5); METHEMOGLOBIN 1.2 % (0.0-3.0)
[2016-07-19 05:27] LABS: HEMATOCRIT 37.3 % (34.0-47.0); LYMPH # 0.4 K/uL (1.0-4.3); LYMPH % 5.1 % (20.0-40.0); MEAN CELL VOLUME 85.9 fl (81.0-99.0); MEAN CORPUSCULAR HEMOGLOBIN 28.2 pg (27.0-31.0); MEAN CORPUSCULAR HGB CONC 32.9 g/dL (33.0-37.0); MEAN PLATELET VOLUME 8.2 fl (7.2-11.7); MONO # 0.3 K/uL (0.0-0.8); MONO % 3.8 % (0.0-10.0); NEUT # 6.5 K/uL (1.8-7.0); NEUT % 91.1 % (50.0-75.0); NRBC % 0.7 % (0.0-0.0); WHITE BLOOD COUNT 7.1 K/uL (4.8-10.8)
[2016-07-19 05:58] LABS: CHLORIDE 89 mmol/L (98-107)
[2016-07-19 05:59] LABS: POTASSIUM 4.9 MMOL/L (3.6-5.0); SODIUM 132 mmol/l (132-148)
[2016-07-19 06:01] LABS: ALKALINE PHOSPHATASE 108 U/L (38-126); AST/SGOT 39 U/L (14-36); BILIRUBIN,TOTAL 0.5 mg/dl (0.2-1.3); GFR AFRICAN-AMERICAN > 60; TOTAL PROTEIN 5.1 G/DL (6.3-8.2)
[2016-07-19 06:02] LABS: ALT/SGPT 96 U/L (9-52); BLOOD UREA NITROGEN 14 mg/dl (7-17); CALCIUM 8.6 mg/dL (8.4-10.2); GLUCOSE,RANDOM 96 mg/dL (65-105)
[2016-07-19 06:30] LABS: CARBON DIOXIDE 38 mmol/L (22-30)
--- NOTE | 2016-07-19 07:31 | CP.CCUPN ---
CCU Subjective - Physician Review Events Since Last Encounter (Free Text): 07/19/16 16:48 The Patient was seen and examined at the bedside, Medical records reviewed, all clinical/lab/hemodynamic/radiographic data were reviewed and management issues were discussed and formulated, 66 Y/O F with PMHx of HTN, History of Hyperthyroidism (on Methimazole), H/O Hypothyroidism, severe COPD, Gall Bladder Disease and bilateral breast Cancer with bone mets to shoulder (s/p humerus resection, Humeral prosthesis placement and removal) S/p chemo/XRT 8 years ago Who initially presented to the Emergency department on 06/03 with complaints of bilateral leg swelling and weakness. x2 week. 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 06/18, Patient was transferred from Telemetry unit to ICU for close monitoring due to worsening respiratory status, more dyspnea and increased work of breathing despite being started on HFNC at FIO2 of 28% oxygen and 35 LPM flow Patient initially managed with Diuresis, IV antibiotics with IV Zosyn, Zyvox ( added for VRE from facial mass), Diflucan and Meropenem 07/06, Patient went to OR, underwent drainage of right maxillary seroma Vs abscess by [facility] surgeon, She returned to ICU orally intubated, Successfully extubated 07/07 07/09, she was noted with tachypnena, using accessory muscle and desaturation, she was reintubated Failed multiple extubation trials 07/19, Underwent Trach today Patient Alert and oriented x3, Denies any facial discomfort. Intubated via Trach, on PRVC 450/12/40% PEEP of 5 No CP, Less SOB, no fever/chills Full vent support for tonight follow up labs, CXR, ABG, f/u final results of bronchial washing CCU Objective - Vital Signs / Intake & Output Vital Signs (Last 4 hours): Vital Signs Temp Pulse Resp BP Pulse Ox 07/19/16 05:57 99 H 13 100 07/19/16 05:56 99 H 12 120/60 99 07/19/16 05:44 103 H 18 120/69 100 07/19/16 04:46 99 H 13 110/60 95 07/19/16 04:00 98.4 F 107 H 12 111/52 L 100 Intake and Output (Last 8hrs): Intake & Output 07/18/16 07/19/16 07/19/16 22:59 06:59 14:59 Intake Total 814 193 Output Total 500 1400 Balance 314 -1207 Weight 125 lb Intake: IV 234 93 Intake, Piggyback 100 100 Oral 120 0 Tube Feeding 260 Free Water Flush 100 Output: Urine 450 1400 Urethral (Gutierrez) 450 1400 Stool 50 Other: # Voids Urethral (Gutierrez) 230 # Bowel Movements 1 2 - Physical Exam Head: Positive for: Atraumatic, Swelling (R mandible, improving). Negative for : Ecchymosis Pupils: Positive for: PERRL. Negative for: Sluggish, Non-Reactive Extroacular Muscles: Positive for: EOMI. Negative for: Gaze Palsy, Entrapment Conjunctiva: Positive for: Normal Mouth: Positive for: Moist Mucous Membranes Pharnyx: Positive for: Normal Nose (External): Positive for: Atraumatic Nose (Internal): Positive for: Normal Inspection Neck: Positive for: Trachea Midline. Negative for: MIDLINE TENDERNESS, Paraspinal Tenderness, JVD, Lymphadenopathy, Bruit Respiratory/Chest: Positive for: Good Air Exchange, Decreased Breath Sounds. Negative for: Respiratory Distress, Accessory Muscle Use Cardiovascular: Positive for: Normal S1, S2, Peripheal Pulses Present, Tachycardic. Negative for: Murmurs, Irregular Rhythm Abdomen: Positive for: Normal Bowel Sounds. Negative for: Tenderness Upper Extremity: Positive for: NORMAL PULSES, Capillary Refill < 2s, Other (L arm presents w/o edema, normal pulses; Rt arm edema). Negative for: Cyanosis, Tenderness Lower Extremity: Positive for: Edema, NORMAL PULSES. Negative for: CALF TENDERNESS Neurological: Positive for: GCS=15, Other (full exam limited due to recent intubation) Skin: Positive for: Warm, Dry, Normal Color Psychiatric: Positive for: Alert, Oriented x 3 - Medications Active Medications: Active Medications Generic Name Dose Route Start Last Admin Trade Name Freq PRN Reason Stop Dose Admin Albuterol/Ipratropium 3 ml 07/14/16 09:31 07/16/16 07:43 Duoneb 3 Mg/0.5 Mg (3 Ml) Ud INH 3 ml RQ4 PRN Administration Shortness of Breath Alprazolam 0.25 mg 07/18/16 10:30 07/18/16 22:09 Xanax PO 07/25/16 10:31 0.25 mg Q12 ANDREAS Administration Anastrozole 1 mg 07/07/16 09:00 07/18/16 08:57 Arimidex 1 Mg Tab PO 1 mg DAILY ANDREAS Administration Enoxaparin Sodium 40 mg 07/16/16 13:15 07/18/16 08:52 Lovenox SC 40 mg DAILY ANDREAS Administration Protocol Furosemide 20 mg 07/18/16 10:30 07/18/16 10:26 Lasix IVP 20 mg DAILY ANDREAS Administration Gabapentin 600 mg 07/06/16 17:00 07/19/16 03:08 Neurontin PO Not Given Q8 ANDREAS Linezolid 300 mls @ 300 mls/hr 07/06/16 21:00 07/18/16 20:06 Zyvox 600mg/300ml D5w IVPB 300 mls/hr Q12 ANDREAS Administration Ceftazidime 1 gm/ Sodium 100 mls @ 200 mls/hr 07/13/16 01:00 07/18/16 23:59 Chloride IVPB 200 mls/hr Q8 ANDREAS Administration Fentanyl Citrate 2,500 mcg/ 250 mls @ 5.7 mls/hr 07/16/16 09:15 07/19/16 03:06 Dextrose IV 11.6 mls/hr .Q24H ANDREAS Administration Protocol Per Protocol Methylprednisolone 30 mg/ 50 mls @ 100 mls/hr 07/17/16 11:18 07/18/16 20:05 Sodium Chloride IV 100 mls/hr Q12 ANDREAS Administration Lactobacillus Acidophilus 1 cap 07/06/16 17:00 07/18/16 16:58 Bacid Acidophilus PO 1 cap BID ANDREAS Administration Lorazepam 1 mg 07/13/16 19:32 07/17/16 22:09 Ativan IVP 1 mg Q4 PRN Administration Anxiety Methimazole 5 mg 07/14/16 09:00 07/18/16 08:56 Tapazole PO 5 mg DAILY ANDREAS Administration Morphine Sulfate 2 mg 07/12/16 08:54 07/19/16 05:42 Morphine IVP 2 mg Q2 PRN Administration Pain, moderate (4-7) Multi-Ingredient Cream 1 applic 07/06/16 17:00 07/18/16 17:03 Hydrocerin Cream TOP 1 applic BID ANDREAS Administration Nitroglycerin 1 in 07/06/16 16:00 07/19/16 03:08 Nitro-Bid 2% Oint TOP 1 in Q6 ANDREAS Administration Pantoprazole Sodium 40 mg 07/16/16 09:00 07/18/16 08:52 Protonix Inj IVP 40 mg DAILY ANDREAS Administration Spironolactone 25 mg 07/07/16 09:00 07/18/16 08:52 Aldactone PO 25 mg DAILY ANDREAS Administration Trimethoprim/Sulfamethoxazole 20 ml 07/17/16 21:00 07/18/16 22:05 Sulfatrim Pediatric Susp PO 20 ml Q12 ANDREAS Administration - Patient Studies Lab Studies: Lab Studies 07/19/16 07/19/16 07/18/16 Range/Units 05:14 04:20 12:15 WBC 7.1 (4.8-10.8) K/uL RBC 4.34 (3.80-5.20) Mil/uL Hgb 12.2 (12.0-16.0) g/dL Hct 37.3 (34.0-47.0) % MCV 85.9 (81.0-99.0) fl MCH 28.2 (27.0-31.0) pg MCHC 32.9 L (33.0-37.0) g/dL RDW 24.0 H (11.5-14.5) % Plt Count 95 L (130-400) K/uL MPV 8.2 (7.2-11.7) fl Neut % (Auto) 91.1 H (50.0-75.0) % Lymph % (Auto) 5.1 L (20.0-40.0) % [place] % (Auto) 3.8 (0.0-10.0) % Eos % (Auto) 0.0 (0.0-4.0) % Baso % (Auto) 0.0 (0.0-2.0) % Neut # 6.5 (1.8-7.0) K/uL Lymph # 0.4 L (1.0-4.3) K/uL [place] # 0.3 (0.0-0.8) K/uL Eos # 0.0 (0.0-0.7) K/uL Baso # 0.0 (0.0-0.2) K/uL PT 12.0 H (9.6-11.2) SECONDS INR 1.15 H (0.92-1.08) pCO2 63 H (35-45) mm/Hg pO2 115 H (80-100) mm/Hg HCO3 37.9 H (21-28) mmol/L ABG pH 7.45 (7.35-7.45) ABG Total CO2 45.7 H (22-28) mmol/L ABG O2 Saturation 99.0 H (95-98) % ABG O2 Content 17.0 (15-23) ML/dL ABG Base Excess 16.7 H (-2.0-3.0) mmol/L ABG Hemoglobin 12.5 (11.7-17.4) g/dL ABG Carboxyhemoglobin 2.1 H (0.5-1.5) % POC ABG HHb (Measured) 1.0 (0.0-5.0) % ABG Methemoglobin 1.2 (0.0-3.0) % ABG O2 Capacity 17.2 (16-24) mL/dL Tawanda Test Yes A-a O2 Difference 91.0 mm/Hg Hgb O2 Saturation 95.7 (95.0-98.0) % Vent Mode A/c Mechanical Rate 12 FiO2 40.0 % Tidal Volume 400 PEEP 5 Sodium 132 (132-148) mmol/l Potassium 4.9 (3.6-5.0) MMOL/L Chloride 89 L (98-107) mmol/L Carbon Dioxide 38 H (22-30) mmol/L Anion Gap 10 (10-20) BUN 14 (7-17) mg/dl Creatinine 0.3 L (0.7-1.2) mg/dL Est GFR ( Amer) > 60 Est GFR (Non-Af Amer) > 60 Random Glucose 96 (65-105) mg/dL Calcium 8.6 (8.4-10.2) mg/dL Total Bilirubin 0.5 (0.2-1.3) mg/dl AST 39 H D (14-36) U/L ALT 96 H (9-52) U/L Alkaline Phosphatase 108 (38-126) U/L Total Protein 5.1 L (6.3-8.2) G/DL Albumin 2.5 L (3.5-5.0) g/dL Globulin 2.5 (2.2-3.9) gm/dL Albumin/Globulin Ratio 1.0 (1.0-2.1) Blood Type O NEGATIVE Antibody Screen Negative BBK History Checked Patient has bt Laboratory Results - last 24 hr 07/18/16 07/19/16 07/19/16 12:15 04:20 05:14 WBC 7.1 RBC 4.34 Hgb 12.2 Hct 37.3 MCV 85.9 MCH 28.2 MCHC 32.9 L RDW 24.0 H Plt Count 95 L MPV 8.2 Neut % (Auto) 91.1 H Lymph % (Auto) 5.1 L [place] % (Auto) 3.8 Eos % (Auto) 0.0 Baso % (Auto) 0.0 Neut # 6.5 Lymph # 0.4 L [place] # 0.3 Eos # 0.0 Baso # 0.0 PT 12.0 H INR 1.15 H pCO2 63 H pO2 115 H HCO3 37.9 H ABG pH 7.45 ABG Total CO2 45.7 H ABG O2 Saturation 99.0 H ABG O2 Content 17.0 ABG Base Excess 16.7 H ABG Hemoglobin 12.5 ABG Carboxyhemoglobin 2.1 H POC ABG HHb (Measured) 1.0 ABG Methemoglobin 1.2 ABG O2 Capacity 17.2 Tawanda Test Yes A-a O2 Difference 91.0 Hgb O2 Saturation 95.7 Vent Mode A/c Mechanical Rate 12 FiO2 40.0 Tidal Volume 400 PEEP 5 Sodium 132 Potassium 4.9 Chloride 89 L Carbon Dioxide 38 H Anion Gap 10 BUN 14 Creatinine 0.3 L Est GFR ( Amer) > 60 Est GFR (Non-Af Amer) > 60 Random Glucose 96 Calcium 8.6 Total Bilirubin 0.5 AST 39 H D ALT 96 H Alkaline Phosphatase 108 Total Protein 5.1 L Albumin 2.5 L Globulin 2.5 Albumin/Globulin Ratio 1.0 Blood Type O NEGATIVE Antibody Screen Negative BBK History Checked Patient has bt Critical Care Progress Note - Ventilator Checklist Head of Bed 30 Degrees: Yes Daily Sedation Vacation: Yes Daily Assessment of Readiness to Wean: Yes Daily Spontaneous Breathing Trial: Yes PUD Prophalyxis: Yes DVT Prophylaxis: Yes Oral Care with Chlorhexidine Gluconate {CHG}: Yes - Nutrition Nutrition: Nutrition Category Date Time Status NPO Diet [DIET] Diets 07/19/16 Breakfast Active Assessment/Plan (1) Acute and chronic respiratory failure with hypercapnia Current Visit: Yes Status: Acute Comment: Open Tracheostomy today Continue Duonebs, VEnt support, Theophylline, Diuresis IV antibiotics (2) Acute exacerbation of CHF (congestive heart failure) Current Visit: Yes Status: Acute Comment: Echo 06/14: The systolic function is moderately impaired, EF 40-45 % and dilated RV with mild/mod deccrease RV function, diastolic inflow pattern is restrictive Diuresis, strict I&Os, daily Wt (3) Acute bronchitis with chronic obstructive pulmonary disease (COPD) Current Visit: Yes Status: Acute Priority: High Comment: Respiratory failure requiring prolonged intubation, failed multiple extubations PRVC AC: RR 16, TV 400, PEEP 5, FIO2 50% Methylprednisone IV 40 mg Q 12H BD nebs (4) Osteomyelitis of mandible Current Visit: Yes Status: Acute Comment: Continue IV antibiotics as per ID Pain control with Percocet (5) Hx of breast cancer Current Visit: No Status: Chronic Priority: Low Comment: S/p bilateral mastectomy Continue Arimidex 1mg PO daily
--- NOTE | 2016-07-19 08:33 | CP.PCM.PN ---
Subjective - Date & Time of Evaluation Date of Evaluation: 07/19/16 Time of Evaluation: 08:31 - Subjective Subjective: Interim events reviewed. Patient is tentatively scheduled for tracheostomy today. Remains on Fortaz, Bactrim and Zyvox. Today's labs reviewed, platelets are 95,000. Oxygenation is good and pH is 7.45 with CO2 63mmHg. Mildly tachycardic at 100BPM, remains afebrile. Scant sputum aspirated from ETT. AM CXR shows bilateral expansion, hazy density left base, blunted CP angle on the right. She is awake, calm, interactive, cooperative with exam. No dullness to percussion anteriorly, no palpable subcutaneous emphysema. Neck is supple and trachea is midline. Breath sounds are present bilterally, diminished. Rhonchi are present in the lower lobes posteriorly, L>>R. Expiratory phase is prolonged without distinct wheezing appreciated. Heart sounds are markedly distant. Abdomen is soft with + bowel sounds. Dependant edema is still present but less tense, gradually decreasing. No cyanosis, scattered areas of ecchymosis. Right buccal swelling has resolved, drains are out, wound clean and dry. Will proceed with tracheostomy today. Weaning can then begin again after trach. Will discuss with ID, Bactrim and thrombocytopenia? All other medications will likely continue unchanged. Analgesia/sedation with fentanyl appears more efficacious than morphine prn. Mobilize edema fluid and improve protein levels. Resume scheduled bronchodilator aerosol. Objective - Vital Signs/Intake and Output Vital Signs (last 24 hours): Temp Pulse Resp BP Pulse Ox 98.4 F 99 H 13 120/60 100 07/19/16 04:00 07/19/16 05:57 07/19/16 05:57 07/19/16 05:56 07/19/16 05:57 Intake and Output: 07/18/16 07/19/16 23:59 11:59 Intake Total 1006 193 Output Total 1100 1400 Balance -94 -1207 - Medications Medications: Current Medications Albuterol/Ipratropium (Duoneb 3 Mg/0.5 Mg (3 Ml) Ud) 3 ml INH RQID ANDREAS Alprazolam (Xanax) 0.25 mg PO Q12 ANDREAS Stop: 07/25/16 10:31 Last Admin: 07/18/16 22:09 Dose: 0.25 mg Anastrozole (Arimidex 1 Mg Tab) 1 mg PO DAILY [facility] Last Admin: 07/18/16 08:57 Dose: 1 mg Enoxaparin Sodium (Lovenox) 40 mg SC DAILY [facility] PRN Reason: Protocol Last Admin: 07/18/16 08:52 Dose: 40 mg Furosemide (Lasix) 20 mg IVP DAILY [facility] Last Admin: 07/18/16 10:26 Dose: 20 mg Gabapentin (Neurontin) 600 mg PO Q8 [facility] Last Admin: 07/19/16 03:08 Dose: Not Given Linezolid (Zyvox 600mg/300ml D5w) 300 mls @ 300 mls/hr IVPB Q12 [facility] Last Admin: 07/18/16 20:06 Dose: 300 mls/hr Ceftazidime 1 gm/ Sodium (Chloride) 100 mls @ 200 mls/hr IVPB Q8 [facility] Last Admin: 07/18/16 23:59 Dose: 200 mls/hr Fentanyl Citrate 2,500 mcg/ (Dextrose) 250 mls @ 5.7 mls/hr IV .Q24H [facility]; Per Protocol PRN Reason: Protocol Last Admin: 07/19/16 03:06 Dose: 11.6 mls/hr Methylprednisolone 30 mg/ (Sodium Chloride) 50 mls @ 100 mls/hr IV Q12 [facility] Last Admin: 07/18/16 20:05 Dose: 100 mls/hr Lactobacillus Acidophilus (Bacid Acidophilus) 1 cap PO BID [facility] Last Admin: 07/18/16 16:58 Dose: 1 cap Lorazepam (Ativan) 1 mg IVP Q4 PRN PRN Reason: Anxiety Last Admin: 07/17/16 22:09 Dose: 1 mg Methimazole (Tapazole) 5 mg PO DAILY [facility] Last Admin: 07/18/16 08:56 Dose: 5 mg Morphine Sulfate (Morphine) 2 mg IVP Q2 PRN PRN Reason: Pain, moderate (4-7) Last Admin: 07/19/16 05:42 Dose: 2 mg Multi-Ingredient Cream (Hydrocerin Cream) 1 applic TOP BID [facility] Last Admin: 07/18/16 17:03 Dose: 1 applic Nitroglycerin (Nitro-Bid 2% Oint) 1 in TOP Q6 [facility] Last Admin: 07/19/16 03:08 Dose: 1 in Pantoprazole Sodium (Protonix Inj) 40 mg IVP DAILY [facility] Last Admin: 07/18/16 08:52 Dose: 40 mg Spironolactone (Aldactone) 25 mg PO DAILY [facility] Last Admin: 07/18/16 08:52 Dose: 25 mg Trimethoprim/Sulfamethoxazole (Sulfatrim Pediatric Susp) 20 ml PO Q12 [facility] Last Admin: 07/18/16 22:05 Dose: 20 ml - Labs Labs: 07/19/16 04:20 07/19/16 04:20 PT 12.0 SECONDS (9.6-11.2) H 07/19/16 04:20 INR 1.15 (0.92-1.08) H 07/19/16 04:20 APTT 27.7 SECONDS (23.3-32.5) 07/09/16 08:00 Assessment and Plan (1) Acute bronchitis with chronic obstructive pulmonary disease (COPD) Status: Acute (2) Hyperthyroidism Status: Chronic (3) Abscess Status: Acute (4) Hypokalemia Status: Acute
[2016-07-19] MEDS: Hydrocerin CREAM TOP SCH ×2 (08:53→17:30)
[2016-07-19] MEDS: Linezolid 600 mg in D5W 300 ml 300 ML IVPB SCH ×2 (08:56→20:46)
[2016-07-19] MEDS: methylPREDNISolone 30 MG in Sodium Chloride 0.9% 50 ML IV SCH ×2 (08:56→20:46)
[2016-07-19] MEDS: Lactobacillus Acidophilus 500 MU Cap PO SCH ×2 (08:57→17:28)
[2016-07-19] MEDS: Tmp-Smz 200-40mg/5 ml Oral Sus(120 ml) PO SCH ×2 (09:00→20:44)
[2016-07-19] MEDS: methIMAzole 5 MG TAB PO SCH (11:12)
--- NOTE | 2016-07-19 11:18 | CP.PCM.PN ---
Subjective - Date & Time of Evaluation Date of Evaluation: 07/19/16 Time of Evaluation: 11:17 - Subjective Subjective: Pt is doing better as far as her jaw abscess is concerned. She is scheduled for a tracheostomy today.CBC is normal Objective - Vital Signs/Intake and Output Vital Signs (last 24 hours): Temp Pulse Resp BP Pulse Ox 98.4 F 99 H 13 113/70 100 07/19/16 04:00 07/19/16 05:57 07/19/16 05:57 07/19/16 11:13 07/19/16 05:57 Intake and Output: 07/19/16 07/19/16 06:59 18:59 Intake Total 627 Output Total 1400 Balance -773 - Medications Medications: Current Medications Albuterol/Ipratropium (Duoneb 3 Mg/0.5 Mg (3 Ml) Ud) 3 ml INH RQID ANDREAS Alprazolam (Xanax) 0.25 mg PO Q12 [facility] Stop: 07/25/16 10:31 Last Admin: 07/19/16 11:12 Dose: Not Given Anastrozole (Arimidex 1 Mg Tab) 1 mg PO DAILY [facility] Last Admin: 07/19/16 11:14 Dose: Not Given Enoxaparin Sodium (Lovenox) 40 mg SC DAILY [facility] PRN Reason: Protocol Last Admin: 07/18/16 08:52 Dose: 40 mg Furosemide (Lasix) 20 mg IVP DAILY [facility] Last Admin: 07/19/16 11:13 Dose: Not Given Gabapentin (Neurontin) 600 mg PO Q8 [facility] Last Admin: 07/19/16 08:55 Dose: Not Given Linezolid (Zyvox 600mg/300ml D5w) 300 mls @ 300 mls/hr IVPB Q12 [facility] Last Admin: 07/19/16 08:56 Dose: 300 mls/hr Ceftazidime 1 gm/ Sodium (Chloride) 100 mls @ 200 mls/hr IVPB Q8 [facility] Last Admin: 07/19/16 08:53 Dose: 200 mls/hr Fentanyl Citrate 2,500 mcg/ (Dextrose) 250 mls @ 5.7 mls/hr IV .Q24H ANDREAS; Per Protocol PRN Reason: Protocol Last Admin: 07/19/16 03:06 Dose: 11.6 mls/hr Methylprednisolone 30 mg/ (Sodium Chloride) 50 mls @ 100 mls/hr IV Q12 [facility] Last Admin: 07/19/16 08:56 Dose: 100 mls/hr Lactobacillus Acidophilus (Bacid Acidophilus) 1 cap PO BID [facility] Last Admin: 07/19/16 08:57 Dose: Not Given Lorazepam (Ativan) 1 mg IVP Q4 PRN PRN Reason: Anxiety Last Admin: 07/17/16 22:09 Dose: 1 mg Methimazole (Tapazole) 5 mg PO DAILY [facility] Last Admin: 07/19/16 11:12 Dose: Not Given Multi-Ingredient Cream (Hydrocerin Cream) 1 applic TOP BID [facility] Last Admin: 07/19/16 08:53 Dose: 1 applic Nitroglycerin (Nitro-Bid 2% Oint) 1 in TOP Q6 [facility] Last Admin: 07/19/16 11:10 Dose: 1 in Pantoprazole Sodium (Protonix Inj) 40 mg IVP DAILY [facility] Last Admin: 07/19/16 08:56 Dose: 40 mg Spironolactone (Aldactone) 25 mg PO DAILY [facility] Last Admin: 07/19/16 08:57 Dose: Not Given Trimethoprim/Sulfamethoxazole (Sulfatrim Pediatric Susp) 20 ml PO Q12 [facility] Last Admin: 07/19/16 09:00 Dose: 20 ml - Labs Labs: 07/19/16 04:20 07/19/16 04:20 PT 12.0 SECONDS (9.6-11.2) H 07/19/16 04:20 INR 1.15 (0.92-1.08) H 07/19/16 04:20 APTT 27.7 SECONDS (23.3-32.5) 07/09/16 08:00
[2016-07-19] MEDS: Albuterol-Ipratrop 3 mg / 0.5 (3 ml) UD INH SCH ×3 (12:30→20:30)
--- NOTE | 2016-07-19 12:40 | RAD ---
PROCEDURE: CHEST RADIOGRAPH, 1 VIEW HISTORY: intubated COMPARISON: 07/18/2016 FINDINGS: LUNGS: Clear. PLEURA: Possible small bilateral pleural effusion. No pneumothorax. CARDIOVASCULAR: Normal heart size. ET tube, NG tube and right internal jugular central venous catheter unchanged. OSSEOUS STRUCTURES: Gross chronic fracture/ deformity right humerus. Absent right humeral head. VISUALIZED UPPER ABDOMEN: Normal. OTHER FINDINGS: None. IMPRESSION: Possible small bilateral pleural effusion. Lines and tubes unchanged.
[2016-07-19] MEDS ORDERED: Rocuronium 10 mg/ml (5 ml) ONE (13:08)
[2016-07-19] MEDS ORDERED: Midazolam 2 MG/2 ML VIAL ONE ×2 (13:08→13:22)
[2016-07-19] MEDS ORDERED: Etomidate 20 mg/10ml Inj IV ONE (13:20)
[2016-07-19] MEDS ORDERED: Lactated Ringer's 1,000 ML IV ONE (13:25)
[2016-07-19] MEDS ORDERED: ePHEDrine 50 mg/ml Inj ONE (13:29)
[2016-07-19] MEDS ORDERED: Lidocaine 1% Inj (20ml) IJ ONE (13:50)
--- NOTE | 2016-07-19 14:27 | PCM.SURG1 ---
Surgeon's Initial Post Op Note - Surgeon's Notes Surgeon: Dr. Julio Information Consultant: Dr. Franklin PGY-2, Dr. Lambert PGY-1 DPM Type of Anesthesia: General Endo, Local Pre-Operative Diagnosis: Respiratory failure requiring prolonged intubation Operative Findings: see operative report Post-Operative Diagnosis: Respiratory failure requiring prolonged intubation Operation Performed: Open Tracheostomy Specimen/Specimens Removed: none Estimated Blood Loss: EBL {In ML}: 5 Blood Products Given: Platlets (1) Drains Used: No Drains Post-Op Condition: Fair Date of Surgery/Procedure: 07/19/16 Time of Surgery/Procedure: 14:27
--- NOTE | 2016-07-19 17:19 | PN ---
DATE: 07/19/2016 ROOM: 434 ICU. This is a 66-year-old female with recent overt hyperthyroidism, now being controlled metabolically an d clinically with Tapazole given as 5 mg once daily as ordered. She is being followed closely here a t the ICU for hemodynamic monitoring of recent congestive heart failure and acute exacerbation of BUSINESS PROCESS LEAD D, currently on IV steroid therapy as noted. Her latest chemistries include a BUN of 14, sodium 132, potassium 4.9, chloride 89, CO2 38, glucose 9 6, and creatinine 0.3. So, at this time, will continue the same low dose Tapazole given as 5 mg once daily as ordered. Will titrate incrementally as indicated to optimize metabolic control. Will follow and advise accordingl y. Polly Vu MD cc: [id number] TT: 07/19/2016 17:18:33 Confirmation # [id number] Dictation # [id number] mn
[2016-07-19] MEDS ORDERED: Sodium Chloride 0.9% 500 ML IV ONE (17:51)
--- NOTE | 2016-07-19 18:17 | CP.PCM.PN ---
Subjective - Date & Time of Evaluation Date of Evaluation: 07/19/16 Time of Evaluation: 10:30 - Subjective Subjective: Patient seen and evaluated bedside. Chronically ill female , intubated on MV PRVC/ Ac mode 12/400/5 /40% saturating well ABG 63/115/37/7.45 Awake ,alert , oriented , answering questions and following commands. Denies any pain at present BP stable 120/60 still tachycardic HR 99, better, afebrile On Fentanyl drip for pain control and sedation no acute issues overnight For tracheostomy today WBC 7 K Hgb 12 Plt 95 Objective - Vital Signs/Intake and Output Vital Signs (last 24 hours): Temp Pulse Resp BP Pulse Ox 98.4 F 102 H 12 113/70 98 07/19/16 08:00 07/19/16 11:00 07/19/16 11:00 07/19/16 11:13 07/19/16 11:00 Intake and Output: 07/19/16 07/19/16 06:59 18:59 Intake Total 627 730 Output Total 1400 300 Balance -773 430 - Medications Medications: Current Medications Albuterol/Ipratropium (Duoneb 3 Mg/0.5 Mg (3 Ml) Ud) 3 ml INH RQID [facility] Last Admin: 07/19/16 12:30 Dose: Not Given Alprazolam (Xanax) 0.25 mg PO Q12 [facility] Stop: 07/25/16 10:31 Last Admin: 07/19/16 11:12 Dose: Not Given Anastrozole (Arimidex 1 Mg Tab) 1 mg PO DAILY [facility] Last Admin: 07/19/16 11:14 Dose: Not Given Enoxaparin Sodium (Lovenox) 40 mg SC DAILY [facility] PRN Reason: Protocol Last Admin: 07/18/16 08:52 Dose: 40 mg Furosemide (Lasix) 20 mg IVP DAILY [facility] Last Admin: 07/19/16 11:13 Dose: Not Given Gabapentin (Neurontin) 600 mg PO Q8 [facility] Last Admin: 07/19/16 17:31 Dose: Not Given Linezolid (Zyvox 600mg/300ml D5w) 300 mls @ 300 mls/hr IVPB Q12 [facility] Last Admin: 07/19/16 08:56 Dose: 300 mls/hr Ceftazidime 1 gm/ Sodium (Chloride) 100 mls @ 200 mls/hr IVPB Q8 [facility] Last Admin: 07/19/16 17:30 Dose: 200 mls/hr Fentanyl Citrate 2,500 mcg/ (Dextrose) 250 mls @ 5.7 mls/hr IV .Q24H [facility]; Per Protocol PRN Reason: Protocol Last Admin: 07/19/16 03:06 Dose: 11.6 mls/hr Methylprednisolone 30 mg/ (Sodium Chloride) 50 mls @ 100 mls/hr IV Q12 [facility] Last Admin: 07/19/16 08:56 Dose: 100 mls/hr Sodium Chloride (Sodium Chloride 0.9%) 500 mls @ 500 mls/hr IV .Q1H [facility] Stop: 07/19/16 18:50 Lactobacillus Acidophilus (Bacid Acidophilus) 1 cap PO BID [facility] Last Admin: 07/19/16 17:28 Dose: Not Given Lorazepam (Ativan) 1 mg IVP Q4 PRN PRN Reason: Anxiety Last Admin: 07/17/16 22:09 Dose: 1 mg Methimazole (Tapazole) 5 mg PO DAILY [facility] Last Admin: 07/19/16 11:12 Dose: Not Given Multi-Ingredient Cream (Hydrocerin Cream) 1 applic TOP BID [facility] Last Admin: 07/19/16 17:30 Dose: 1 applic Nitroglycerin (Nitro-Bid 2% Oint) 1 in TOP Q6 [facility] Last Admin: 07/19/16 16:05 Dose: 1 in Pantoprazole Sodium (Protonix Inj) 40 mg IVP DAILY [facility] Last Admin: 07/19/16 08:56 Dose: 40 mg Spironolactone (Aldactone) 25 mg PO DAILY [facility] Last Admin: 07/19/16 08:57 Dose: Not Given Trimethoprim/Sulfamethoxazole (Sulfatrim Pediatric Susp) 20 ml PO Q12 [facility] Last Admin: 07/19/16 09:00 Dose: 20 ml - Labs Labs: 07/19/16 04:20 07/19/16 04:20 PT 12.0 SECONDS (9.6-11.2) H 07/19/16 04:20 INR 1.15 (0.92-1.08) H 07/19/16 04:20 APTT 27.7 SECONDS (23.3-32.5) 07/09/16 08:00 - Constitutional Appears: No Acute Distress, Chronically Ill - Head Exam Head Exam: ATRAUMATIC, NORMAL INSPECTION, NORMOCEPHALIC - Eye Exam Eye Exam: Normal appearance, PERRL Pupil Exam: NORMAL ACCOMODATION - Neck Exam Neck Exam: Full ROM, Normal Inspection - Respiratory Exam Respiratory Exam: Decreased Breath Sounds (bibasilar ). absent: Rhonchi, Wheezes, Respiratory Distress Additional comments: intubated on MV - Cardiovascular Exam Cardiovascular Exam: Tachycardia, +S1, +S2. absent: JVD - GI/Abdominal Exam GI & Abdominal Exam: Soft, Normal Bowel Sounds. absent: Distended, Tenderness, Rebound - Rectal Exam Rectal Exam: Deferred - Extremities Exam Extremities Exam: Pedal Edema (bilateral thigh edema with left knee lateral aspect seeping laceration). absent: Calf Tenderness - Neurological Exam Neurological Exam: Alert, Awake, CN II-XII Intact, Oriented x3 - Psychiatric Exam Psychiatric exam: Normal Affect - Skin Skin Exam: Dry, Pallor, Warm Additional comments: upper chest and left upper extremity echymosis\ RUE lymphedema Assessment and Plan - Assessment and Plan (Free Text) Assessment: 66 y/o female PMH COPD, bilateral breast CA s/p chemo and radiation 8 years ago , HTN, Hyperthyroidism presented with 2 week history of worsening bilateral lower extremity swelling and weakness, unable to get herself up to her walker. Patient has mild dyspnea at baseline. She also came with a large right facial swelling for almost 2 weeks and was taking PO antibiotics prescribed by her dentist. Patient was admitted for generalized weakness , Hyponatremia and Facial abscess. She was started on IV antibiotics for facial abscess and Lasix IV with fluid restriction for LE edema. Maxillofacial Ct showed possible abscess accumulation. Evaluated by Oromaxillofacial surgeon and underwent Incision and drainage of abscess. Bone scan showed possible osteomyelitis . ID recommends 4-6 wks IV abx treatment. During this hospitalization noted to have increased dyspnea at rest and more so with minimal activity, decreased air entry bilaterally and increased work of breathing. She was started on high flow O2, Higher doses of theophylline and IV hydrocortisone. CTA chest and LE doppler showed no DVT. She was transferred to ICU for close monitoring for tachypnea and tachycardia. She underwent IR drainage on 06/24 of right facial abscess due to reaccumulation and cultures came positive for VRE and bria. Antibiotics were changed to Zyvox , Meropenem and Fluconazone. Despite drainage and IV antibiotics she still kept complaining of pain to right supramandibular area with increased swelling. Repeat CT showed abscess formation. Patient underwent I&D in OR 07/06/16 with ginger drainage placement. She continues to have episodes of resp distress - tachypneic , tachycardic , with chest congestion , unable to expectorate despite high flow O2 therapy, Duonebs and Corticosteroids. 07/07/16 underwent Bronchoscopy. BAL showed Stenotrophomonas Maltophilia. Antibiotics changed to IV bactrim, Fortaz, Zyvox and Fluconazole. On 07/09 she developed severe respiratory distress with hypoxemia requiring intubation and extubated on 07/14. 07/15 : again noted to be in resp distress, tachypneic , tachycardic so was reintubated. For tracheostomy today due to respiratory failure failing to be extubated 1. Acute on Chronic Respiratory Failure with hypercapnea Multiple trials of intubation and extubation this admission , failing extubation. Still intubated on MV PRVC/ Ac mode 12/400/5/40 % Intubated on 07/09 and extubated 07/14 however again reintubated 07/16 for resp distress Patient would need tracheostomy Surgery: Dr Julio consulted- Plan for Trach on Tuesday- cleared by Dr Luu for the procedure Pulmonary: Dr Benz, is following pt closely s/p bronchoscopy 07/07/16 with BAL growing Stenotrophomonas maltophilla. Continue bactrim, Fortaz, and zyvox as per ID on Methylprednisone 40 mg Iv q12, Xopenex, albuterol and tiotropium inhaler 2. Chest Pain , prob sec to Anxiety, ACS ruled out with recurrent pressure like chest pain on and off cardiology consulted Dr. Luu Trop -- negative and EKG showed no ST-T wave changes Most likely atypical chest pain related to anxiety , hypokalemia and COPD, no signs of ischemia Pain mgt consulted- Dr Verdugo Pt is on fentanyl drip Ativan prn 3. Facial abscess with mandibular Osteomyelitis s/p drainage of abscess with penreose drain placement s/p Incision and drainage on 06/[address] Andersno maxillofacial surgeon and rpt I&D 07/06 pathology report showed inflammatory cells, no malignancy Nuclear Bone Scan suggestive of osteomyelitis initial cultures were with no growth ID consult with Dr Obrien appreciated . Recommended IV abx 6 wks total ( has been on antibiotics for 6 weeks , started Iv antibiotics 06/04/16) Tunneled central line placed for assistant terminal manager IV antibiotics- this will need to be d/c by IR after IV abx treatment is completed ( as discussed with Dr Gunter - pt was informed of need to see IR after abx tx) Due to increased swelling and pain patient underwent drainage of facial collection by IR on 06/24 and 24 ml yellow fluid obtained. Cultures reported as VRE and Bria Ginger drain d/c by dr Ambrose on Zyvox , Bactrim, Fortaz Discontinued Fluconazole due to abnormal LFT-s 4. Bilateral LE edema sec to CHF exacerbation with diastolic dysfxn Echo showed EF 40-45 % and dilated RV continue fluid restriction Promote ambulation once better cont Aldactone 5. Hypokalemia multifactorial diuretic induced , Albuterol, Hypothyroidism and GI loss off Lasix, on Aldactone Continue KCl runs and PO replacement as needed Nephro consult appreciated CT of abd showed no adrenal mass 6 .Hyponatremia most likely secondary to solute depletion and infection Continue fluid restriction 7.Hx breast ca, bilateral stable, s/p bilateral mastectomy continue Arimidex 8. Tachycardia -- multifactorial Hx of HTN was on verapamil at home ( 80mg tid) but decreased dose due to low BP and now discontinued as may contribute to leg edema- discussed with Dr Turcios- restarted Verapamil low dose continue monitoring patient with high levels of anxiety and pain called Dr Verdugo for Pain mgt , discussed case Pt on Fentanyl drip 9. Hypothyroidism/ Hyperthyroidism patient has history of hyperthyroidism , was on Methimazole and noticed to had developed hypothyroidism so Methimazole was d/c and she was started on Po levothyroxine this admission , TSH then went down and Metrhimazole restarted Methimazole 5 mg po daily restarted as discussed with Dr Vu 10. Anemia, chronic dis monitor anemia work up showed depleted iron stores Venofer IV given s/p 2 units PRBC transfusion 11. Right cephalic vein thrombosis ( superficial vein) no need for therapeutic anticoag 12.Thrombocytopenia plt 97 K Most likely related to bone marrow suppression and multiple medication use Continue monitoring 13.DVT ppx on lovenox
--- NOTE | 2016-07-19 18:32 | OP ---
PROCEDURE DATE: 07/19/2016 PREOPERATIVE DIAGNOSIS: Ventilator-dependent respiratory failure. POSTOPERATIVE DIAGNOSIS: Ventilator-dependent respiratory failure. PROCEDURE: Tracheostomy. SURGEON: Benny Julio MD WOOD SETTER: Abbi Franklin, INTRAVENOUS FLUIDS: Crystalloids. ESTIMATED BLOOD LOSS: 1 mL. INTRAOPERATIVE FINDINGS: Good end tidal CO2 on anesthesia monitor after placement of tracheostomy. SPECIMEN: None. ANESTHESIA: General. BRIEF HISTORY: The patient is a very pleasant 66-year-old female who has been admitted to the intensive care unit for chronic intubation and extubation and has never been able to be weaned off the ventilator. All the risks and benefits of the procedure were explained to the patient. With patient having a full understanding of all the risks and benefits involved, informed consent was obtained and the patient was taken to the operating room for above stated procedure. PROCEDURE: The patient was brought into the operating room and placed supine on the operating table. Bilateral Flowtron boots were applied to patient's lower extremities. After successful induction of anesthesia, a shoulder roll was placed under the patient's shoulders and, at that point in time, the patient 's neck was prepped with ChloraPrep stick and draped in the standard surgical fashion. Prior to the beginning of the procedure, timeout was called in the room and everyone in the room was in agreement. Using 1% lidocaine anesthetic, the area of the mid neck was infiltrated with anesthetic and subsequent to that , using a 15 blade scalpel knife, an approximately 2.5 cm incision was made in the longitudinal fashion approximately 1 fingerbreadth above the sternal notch. Once this was accomplished, dissection was carried down with electrical cautery through the platysma and subcutaneous tissues until the strap muscles were encountered. Strap muscles were opened up right in the middle for the Raphe. At that point in time, I encountered thyroid isthmus that was transected with electrical cautery. At that point in time, the trachea was exposed. Tracheal hook was placed and a third tracheal ring was identified. Window was created between the second and third tracheal rings and a piece of the second tracheal ring was taken out. At that point in time, anesthesia was asked to retract the ET tube. It was retracted and size 8 Shiley was inserted into the trachea and the patient was connected to the anesthesia machine and a good end tidal CO2 was observed on the anesthesia monitor. Once this was accomplished, two 0 silk sutures were placed on both ends of the tracheostomy and the balloon of the tracheostomy was inflated. Sutures were placed to keep the tracheostomy in place. At this point in time, 4 x 4 was inserted between the skin and the tracheostomy, and umbilical tape was placed around the tracheostomy and tracheostomy was secured in place. The patient was taken back to the intensive care unit. All the instruments, needles and sponges were correct at the end of the case. Benny Julio MD cc: [id number] TT: 07/19/2016 18:32:18 roberta TURNER
[2016-07-20] MEDS: Nitroglycerin 2% 1GM UD TOP SCH ×3 (03:43→17:26)
[2016-07-20 05:16] LABS: ABG ALLEN TEST YES; ABG MECHANICAL RATE 12; ARTERIAL BLOOD GAS HCO3 37.5 mmol/L (21-28); ARTERIAL BLOOD GAS MODE A/C; ARTERIAL BLOOD GAS O2 CONTENT 16.8 ML/dL (15-23); ARTERIAL BLOOD GAS PH 7.48 (7.35-7.45); ARTERIAL BLOOD GAS PO2 122 mm/Hg (80-100); ARTERIAL BLOOD HGB O2 SAT 96.3 % (95.0-98.0); ATERIAL BLOOD GAS PEEP 5; CARBOXYHEMOGLOBIN 1.9 % (0.5-1.5); METHEMOGLOBIN 0.9 % (0.0-3.0)
[2016-07-20] MEDS: Fentanyl Citrate 2,500 MCG in Dextrose 5% In Water 200 ML IV SCH ×3 (06:17→16:10)
[2016-07-20 06:36] LABS: BASO % 0.2 % (0.0-2.0); HEMATOCRIT 35.7 % (34.0-47.0); LYMPH # 0.2 K/uL (1.0-4.3); MEAN CELL VOLUME 87.4 fl (81.0-99.0); MEAN CORPUSCULAR HEMOGLOBIN 27.9 pg (27.0-31.0); MEAN CORPUSCULAR HGB CONC 31.9 g/dL (33.0-37.0); MONO # 0.4 K/uL (0.0-0.8); MONO % 4.8 % (0.0-10.0); NEUT # 7.2 K/uL (1.8-7.0); NRBC % 0.3 % (0.0-0.0); PLATELET COUNT 138 K/uL (130-400); RED CELL DISTRIBUTION WIDTH 23.8 % (11.5-14.5); WHITE BLOOD COUNT 7.8 K/uL (4.8-10.8)
[2016-07-20 07:13] LABS: ALB/GLOB RATIO 1.1 (1.0-2.1); ALKALINE PHOSPHATASE 101 U/L (38-126); ALT/SGPT 80 U/L (9-52); AST/SGOT 31 U/L (14-36); BILIRUBIN,TOTAL 0.5 mg/dl (0.2-1.3); BLOOD UREA NITROGEN 11 mg/dl (7-17); CALCIUM 8.5 mg/dL (8.4-10.2); CARBON DIOXIDE 38 mmol/L (22-30); CHLORIDE 91 mmol/L (98-107); GFR AFRICAN-AMERICAN > 60; GLUCOSE,RANDOM 108 mg/dL (65-105); POTASSIUM 3.9 MMOL/L (3.6-5.0); SODIUM 132 mmol/l (132-148); TOTAL PROTEIN 4.9 G/DL (6.3-8.2)
[2016-07-20 07:29] LABS: T4 3.83 ug/dl (5.5-11.0)
[2016-07-20 07:42] LABS: THYROID STIMULATING HORMONE 1.06 mIU/ML (0.46-4.68)
--- NOTE | 2016-07-20 08:47 | RAD ---
PROCEDURE: CHEST RADIOGRAPH, 1 VIEW HISTORY: S/P Trach COMPARISON: Comparison is made to the previous study dated 07/19/2016 FINDINGS: LUNGS: Interval worsening of heterogeneous patchy opacities at the right lower lung since the previous exam. There is also small opacity at the left lung base. The tracheostomy tube is seen in place. PLEURA: Suspicious for bilateral small pleural effusions CARDIOVASCULAR: The cardiac silhouette is prominent in size. OSSEOUS STRUCTURES: Status post resection of the proximal portion of the right humerus. Status post left rotator cuff tear repair. VISUALIZED UPPER ABDOMEN: Normal. OTHER FINDINGS: Surgical clips are seen at the right axillary region. Central line seen in the right side. IMPRESSION: Interval worsening of heterogeneous opacity at the right lower lung since the previous exam. Bilateral small pleural effusions. Tracheostomy tube seen in place.
[2016-07-20] MEDS: methylPREDNISolone 30 MG in Sodium Chloride 0.9% 50 ML IV SCH ×2 (08:56→20:00)
[2016-07-20] MEDS: Hydrocerin CREAM TOP SCH ×2 (08:59→17:26)
[2016-07-20] MEDS: Enoxaparin 40 mg Syringe SC SCH (09:00)
[2016-07-20] MEDS: Lactobacillus Acidophilus 500 MU Cap PO SCH ×2 (09:13→17:25)
[2016-07-20] MEDS: Tmp-Smz 200-40mg/5 ml Oral Sus(120 ml) PO SCH ×2 (09:14→20:02)
[2016-07-20] MEDS: methIMAzole 5 MG TAB PO SCH (09:14)
[2016-07-20] MEDS: Albuterol-Ipratrop 3 mg / 0.5 (3 ml) UD INH SCH ×4 (09:35→20:10)
--- NOTE | 2016-07-20 11:01 | CP.PCM.PN ---
Subjective - Date & Time of Evaluation Date of Evaluation: 07/20/16 Time of Evaluation: 10:30 - Subjective Subjective: Patient was seen and examined at the bedside. Objective - Vital Signs/Intake and Output Vital Signs (last 24 hours): Temp Pulse Resp BP Pulse Ox 98.1 F 100 H 100 H 108/60 13 L 07/20/16 08:00 07/20/16 08:00 07/20/16 08:00 07/20/16 08:52 07/20/16 08:00 Intake and Output: 07/20/16 07/20/16 06:59 18:59 Intake Total 140 25 Output Total 900 Balance -760 25 - Medications Medications: Current Medications Albuterol/Ipratropium (Duoneb 3 Mg/0.5 Mg (3 Ml) Ud) 3 ml INH RQID [facility] Last Admin: 07/20/16 09:35 Dose: 3 ml Alprazolam (Xanax) 0.25 mg PO Q12 [facility] Stop: 07/25/16 10:31 Last Admin: 07/20/16 09:14 Dose: Not Given Anastrozole (Arimidex 1 Mg Tab) 1 mg PO DAILY [facility] Last Admin: 07/20/16 09:13 Dose: Not Given Enoxaparin Sodium (Lovenox) 40 mg SC DAILY [facility] PRN Reason: Protocol Last Admin: 07/20/16 09:00 Dose: 40 mg Furosemide (Lasix) 20 mg IVP DAILY [facility] Last Admin: 07/20/16 08:52 Dose: 20 mg Gabapentin (Neurontin) 600 mg PO Q8 [facility] Last Admin: 07/20/16 09:00 Dose: Not Given Linezolid (Zyvox 600mg/300ml D5w) 300 mls @ 300 mls/hr IVPB Q12 [facility] Last Admin: 07/19/16 20:46 Dose: 300 mls/hr Ceftazidime 1 gm/ Sodium (Chloride) 100 mls @ 200 mls/hr IVPB Q8 [facility] Last Admin: 07/20/16 08:48 Dose: 200 mls/hr Fentanyl Citrate 2,500 mcg/ (Dextrose) 250 mls @ 5.7 mls/hr IV .Q24H [facility]; Per Protocol PRN Reason: Protocol Last Admin: 07/20/16 06:17 Dose: 11.6 mls/hr Methylprednisolone 30 mg/ (Sodium Chloride) 50 mls @ 100 mls/hr IV Q12 [facility] Last Admin: 07/20/16 08:56 Dose: 100 mls/hr Lactobacillus Acidophilus (Bacid Acidophilus) 1 cap PO BID [facility] Last Admin: 07/20/16 09:13 Dose: Not Given Lorazepam (Ativan) 1 mg IVP Q4 PRN PRN Reason: Anxiety Last Admin: 07/19/16 21:48 Dose: 1 mg Methimazole (Tapazole) 5 mg PO DAILY [facility] Last Admin: 07/20/16 09:14 Dose: Not Given Multi-Ingredient Cream (Hydrocerin Cream) 1 applic TOP BID [facility] Last Admin: 07/20/16 08:59 Dose: 1 applic Nitroglycerin (Nitro-Bid 2% Oint) 1 in TOP Q6 [facility] Last Admin: 07/20/16 09:14 Dose: 1 in Pantoprazole Sodium (Protonix Inj) 40 mg IVP DAILY [facility] Last Admin: 07/20/16 08:55 Dose: 40 mg Spironolactone (Aldactone) 25 mg PO DAILY [facility] Last Admin: 07/20/16 09:13 Dose: Not Given Trimethoprim/Sulfamethoxazole (Sulfatrim Pediatric Susp) 20 ml PO Q12 [facility] Last Admin: 07/20/16 09:14 Dose: Not Given - Labs Labs: 07/20/16 05:40 07/20/16 05:40 PT 12.0 SECONDS (9.6-11.2) H 07/19/16 04:20 INR 1.15 (0.92-1.08) H 07/19/16 04:20 APTT 27.7 SECONDS (23.3-32.5) 07/09/16 08:00 - Constitutional Appears: Non-toxic, No Acute Distress - Head Exam Head Exam: ATRAUMATIC, NORMAL INSPECTION, NORMOCEPHALIC - Eye Exam Eye Exam: EOMI, Normal appearance, PERRL Pupil Exam: NORMAL ACCOMODATION, PERRL - ENT Exam ENT Exam: Mucous Membranes Moist - Neck Exam Neck Exam: Full ROM Additional comments: Tracheostomy in place, no bleeding - Respiratory Exam Respiratory Exam: Rhonchi - Cardiovascular Exam Cardiovascular Exam: Tachycardia, +S1, +S2 - Rectal Exam Rectal Exam: Deferred - Extremities Exam Extremities Exam: Full ROM, Normal Inspection - Neurological Exam Neurological Exam: Alert, Awake - Psychiatric Exam Psychiatric exam: Normal Affect, Normal Mood - Skin Skin Exam: Dry, Intact, Normal Color, Warm Assessment and Plan - Assessment and Plan (Free Text) Assessment: 66 y.o. female s/p tracheostomy placement Plan: - Continue ventilator support - pain control - Continue care as per ICU ream - No further general surgery intervention at present time - Please reconsult as needed - Will sign off
[2016-07-20 11:08] LABS: NEUTROPHIL 92 % (42-75); NUCLEATED RED BLOOD CELL 1 % (0-0); TOTAL CELLS COUNTED 100
[2016-07-20] MEDS: Linezolid 600 mg in D5W 300 ml 300 ML IVPB SCH ×2 (11:15→20:01)
[2016-07-20 11:53] LABS: LARGE PLATELETS PRESENT; SMUDGE CELLS PRESENT
[2016-07-20] MEDS ORDERED: Chlorhexidine Gluconate 1 APPL/PKT TP ONE (11:57)
--- NOTE | 2016-07-20 12:09 | RAD ---
PROCEDURE: CHEST RADIOGRAPH, 1 VIEW HISTORY: trach COMPARISON: Multiple chest radiographs most recently from 07/19/2016. FINDINGS: LUNGS: Hazy opacity in the lung bases. Extensive emphysematous changes. Hyperexpanded right lung. PLEURA: Bilateral small pleural effusions. CARDIOVASCULAR: Stable cardiomediastinal silhouette. OSSEOUS STRUCTURES: Postsurgical/destructive changes involving the right femur. The osseous structures demonstrate degenerative changes. VISUALIZED UPPER ABDOMEN: Upper abdomen is suboptimally evaluated. OTHER FINDINGS: Tracheostomy in place. Medication port with the distal tip of the catheter overlying the projection of the SVC/right atrial junction. Surgical joel overlying the projection of the bilateral axilla. IMPRESSION: Bilateral small pleural effusions with associated compressive atelectasis and/or pneumonia. Other findings as above.
[2016-07-20 12:59] LABS: 5-HIAA 36.7 mg/24 h (<=6.0)
[2016-07-20] MEDS ORDERED: Dexmedetomidine Hydrochloride 400 MCG in Sodium Chloride 0.9% 96 ML IV ONE ×2 (13:51→14:00)
--- NOTE | 2016-07-20 14:11 | CP.CCUPN ---
CCU Subjective - Physician Review Events Since Last Encounter (Free Text): 07/20/16 14:01 The Patient was seen and examined at the bedside, Medical records reviewed, all clinical/lab/hemodynamic/radiographic data were reviewed and management issues were discussed and formulated, 66 Y/O F with PMHx of HTN, History of Hyperthyroidism (on Methimazole), H/O Hypothyroidism, severe COPD, Gall Bladder Disease and bilateral breast Cancer with bone mets to shoulder (s/p humerus resection, Humeral prosthesis placement and removal) S/p chemo/XRT 8 years ago Who initially presented to the Emergency department on 06/03 with complaints of bilateral leg swelling and weakness. x2 week. 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 06/18, Patient was transferred from Telemetry unit to ICU for close monitoring due to worsening respiratory status, more dyspnea and increased work of breathing despite being started on HFNC at FIO2 of 28% oxygen and 35 LPM flow Patient initially managed with Diuresis, IV antibiotics with IV Zosyn, Zyvox ( added for VRE from facial mass), Diflucan and Meropenem 07/06, Patient went to OR, underwent drainage of right maxillary seroma Vs abscess by [facility] surgeon, She returned to ICU orally intubated, Successfully extubated 07/07 07/09, she was noted with tachypnena, using accessory muscle and desaturation, she was reintubated Failed multiple extubation trials 07/19, Underwent openTrach Patient Alert and oriented x3, Denies any facial discomfort. Intubated via Trach, on PRVC 450/12/40% PEEP of 5 No CP, Less SOB, no fever/chills Remained on full vent support overnight, will try CPAP today Afebrile Patient only complain on ANxious despite being on Xanax, will start Precedex drip and wean off fentanyl OG Tube feeding place and will will start tube feeding Evaluated by speach therapy, ordered for Modifies video swallow study CCU Objective - Vital Signs / Intake & Output Vital Signs (Last 4 hours): Vital Signs Temp Pulse Resp BP Pulse Ox 07/20/16 12:00 98.3 F 118 H 16 123/77 100 07/20/16 11:00 117 H 14 120/65 100 Intake and Output (Last 8hrs): Intake & Output 07/19/16 07/20/16 07/20/16 22:59 06:59 14:59 Intake Total 961 129 119 Output Total 366 494 0319 Balance 734 -193 -061 Weight 119 lb 6.4 oz Intake: IV 961 129 69 Intake, Piggyback 50 Oral 0 0 Output: Urine 298 121 8990 Urethral (Gutierrez) [phone] Other: # Bowel Movements 1 1 - Physical Exam Head: Positive for: Atraumatic, Swelling (R mandible, improving). Negative for : Ecchymosis Pupils: Positive for: PERRL. Negative for: Sluggish, Non-Reactive Extroacular Muscles: Positive for: EOMI. Negative for: Gaze Palsy, Entrapment Conjunctiva: Positive for: Normal Mouth: Positive for: Moist Mucous Membranes Pharnyx: Positive for: Normal Nose (External): Positive for: Atraumatic Nose (Internal): Positive for: Normal Inspection Neck: Positive for: Trachea Midline. Negative for: MIDLINE TENDERNESS, Paraspinal Tenderness, JVD, Lymphadenopathy, Bruit Respiratory/Chest: Positive for: Good Air Exchange, Decreased Breath Sounds. Negative for: Respiratory Distress, Accessory Muscle Use Cardiovascular: Positive for: Normal S1, S2, Peripheal Pulses Present, Tachycardic. Negative for: Murmurs, Irregular Rhythm Abdomen: Positive for: Normal Bowel Sounds. Negative for: Tenderness Upper Extremity: Positive for: NORMAL PULSES, Capillary Refill < 2s, Other (L arm presents w/o edema, normal pulses; Rt arm edema). Negative for: Cyanosis, Tenderness Lower Extremity: Positive for: Edema, NORMAL PULSES. Negative for: CALF TENDERNESS Neurological: Positive for: GCS=15, Other (full exam limited due to recent intubation) Skin: Positive for: Warm, Dry, Normal Color Psychiatric: Positive for: Alert, Oriented x 3 - Medications Active Medications: Active Medications Generic Name Dose Route Start Last Admin Trade Name Freq PRN Reason Stop Dose Admin Albuterol/Ipratropium 3 ml 07/19/16 12:00 07/20/16 11:59 Duoneb 3 Mg/0.5 Mg (3 Ml) Ud INH 3 ml RQID ANDREAS Administration Alprazolam 0.25 mg 07/18/16 10:30 07/20/16 12:55 Xanax PO 07/25/16 10:31 0.25 mg Q12 ANDREAS Administration Anastrozole 1 mg 07/07/16 09:00 07/20/16 12:57 Arimidex 1 Mg Tab PO 1 mg DAILY ANDREAS Administration Enoxaparin Sodium 40 mg 07/16/16 13:15 07/20/16 09:00 Lovenox SC 40 mg DAILY ANDREAS Administration Protocol Furosemide 20 mg 07/18/16 10:30 07/20/16 08:52 Lasix IVP 20 mg DAILY ANDREAS Administration Gabapentin 600 mg 07/06/16 17:00 07/20/16 09:00 Neurontin PO Not Given Q8 ANDREAS Linezolid 300 mls @ 300 mls/hr 07/06/16 21:00 07/20/16 11:15 Zyvox 600mg/300ml D5w IVPB 300 mls/hr Q12 ANDREAS Administration Ceftazidime 1 gm/ Sodium 100 mls @ 200 mls/hr 07/13/16 01:00 07/20/16 08:48 Chloride IVPB 200 mls/hr Q8 ANDREAS Administration Fentanyl Citrate 2,500 mcg/ 250 mls @ 5.7 mls/hr 07/16/16 09:15 07/20/16 06:17 Dextrose IV 11.6 mls/hr .Q24H ANDREAS Administration Protocol Per Protocol Methylprednisolone 30 mg/ 50 mls @ 100 mls/hr 07/17/16 11:18 07/20/16 08:56 Sodium Chloride IV 100 mls/hr Q12 ANDREAS Administration Dexmedetomidine HCl 400 mcg/ 100 mls @ 2.7 mls/hr 07/20/16 14:00 Sodium Chloride IV 07/21/16 13:59 .Q24H ONE Protocol 0.2 MCG/KG/HR Lactobacillus Acidophilus 1 cap 07/06/16 17:00 07/20/16 09:13 Bacid Acidophilus PO Not Given BID ANDREAS Lorazepam 1 mg 07/13/16 19:32 07/19/16 21:48 Ativan IVP 1 mg Q4 PRN Administration Anxiety Methimazole 5 mg 07/14/16 09:00 07/20/16 09:14 Tapazole PO Not Given DAILY ANDREAS Multi-Ingredient Cream 1 applic 07/06/16 17:00 07/20/16 08:59 Hydrocerin Cream TOP 1 applic BID ANDREAS Administration Nitroglycerin 1 in 07/06/16 16:00 07/20/16 09:14 Nitro-Bid 2% Oint TOP 1 in Q6 ANDREAS Administration Pantoprazole Sodium 40 mg 07/16/16 09:00 07/20/16 08:55 Protonix Inj IVP 40 mg DAILY ANDREAS Administration Spironolactone 25 mg 07/07/16 09:00 07/20/16 12:59 Aldactone PO 25 mg DAILY ANDREAS Administration Trimethoprim/Sulfamethoxazole 20 ml 07/17/16 21:00 07/20/16 09:14 Sulfatrim Pediatric Susp PO Not Given Q12 ANDREAS - Patient Studies Lab Studies: Lab Studies 07/20/16 07/20/16 07/16/16 Range/Units 05:40 05:11 07:13 WBC 7.8 (4.8-10.8) K/uL RBC 4.08 (3.80-5.20) Mil/uL Hgb 11.4 L (12.0-16.0) g/dL Hct 35.7 (34.0-47.0) % MCV 87.4 (81.0-99.0) fl MCH 27.9 (27.0-31.0) pg MCHC 31.9 L (33.0-37.0) g/dL RDW 23.8 H (11.5-14.5) % Plt Count 138 (130-400) K/uL MPV 7.0 L (7.2-11.7) fl Neut % (Auto) 92.0 H (50.0-75.0) % Lymph % (Auto) 3.0 L (20.0-40.0) % Dunn % (Auto) 4.8 (0.0-10.0) % Eos % (Auto) 0.0 (0.0-4.0) % Baso % (Auto) 0.2 (0.0-2.0) % Neut # 7.2 H (1.8-7.0) K/uL Lymph # 0.2 L (1.0-4.3) K/uL Dunn # 0.4 (0.0-0.8) K/uL Eos # 0.0 (0.0-0.7) K/uL Baso # 0.0 (0.0-0.2) K/uL Neutrophils % (Manual) 92 H (42-75) % Band Neutrophils % 1 (0-2) % Lymphocytes % (Manual) 2 L (20-50) % Monocytes % (Manual) 5 (0-10) % Nucleated RBC % 1 H (0-0) % Smudge Cells Present Platelet Estimate Normal (NORMAL) Large Platelets Present Hypochromasia (manual) Slight Anisocytosis (manual) Marked pCO2 57 H (35-45) mm/Hg pO2 122 H (80-100) mm/Hg HCO3 37.5 H (21-28) mmol/L ABG pH 7.48 H (7.35-7.45) ABG Total CO2 44.1 H (22-28) mmol/L ABG O2 Saturation 99.0 H (95-98) % ABG O2 Content 16.8 (15-23) ML/dL ABG Base Excess 16.2 H (-2.0-3.0) mmol/L ABG Hemoglobin 12.3 (11.7-17.4) g/dL ABG Carboxyhemoglobin 1.9 H (0.5-1.5) % POC ABG HHb (Measured) 1.0 (0.0-5.0) % ABG Methemoglobin 0.9 (0.0-3.0) % ABG O2 Capacity 17.0 (16-24) mL/dL Tawanda Test Yes A-a O2 Difference 92.0 mm/Hg Hgb O2 Saturation 96.3 (95.0-98.0) % Vent Mode A/c Mechanical Rate 12 FiO2 40.0 % Tidal Volume 400 PEEP 5 Sodium 132 (132-148) mmol/l Potassium 3.9 (3.6-5.0) MMOL/L Chloride 91 L (98-107) mmol/L Carbon Dioxide 38 H (22-30) mmol/L Anion Gap 7 L (10-20) BUN 11 (7-17) mg/dl Creatinine 0.2 L (0.7-1.2) mg/dL Est GFR ( Amer) > 60 Est GFR (Non-Af Amer) > 60 Random Glucose 108 H (65-105) mg/dL Calcium 8.5 (8.4-10.2) mg/dL Total Bilirubin 0.5 (0.2-1.3) mg/dl AST 31 (14-36) U/L ALT 80 H (9-52) U/L Alkaline Phosphatase 101 (38-126) U/L Total Protein 4.9 L (6.3-8.2) G/DL Albumin 2.6 L (3.5-5.0) g/dL Globulin 2.4 (2.2-3.9) gm/dL Albumin/Globulin Ratio 1.1 (1.0-2.1) Thyroxine (T4) 3.83 L (5.5-11.0) ug/dl TSH 3rd Generation 1.06 (0.46-4.68) mIU/ML Ur 24 Hour Volume 2400 (()) mL/24 h Urine 5-HIAA 24 Hour 36.7 H (<=6.0) mg/24 h Laboratory Results - last 24 hr 07/16/16 07/20/16 07/20/16 07:13 05:11 05:40 WBC 7.8 RBC 4.08 Hgb 11.4 L Hct 35.7 MCV 87.4 MCH 27.9 MCHC 31.9 L RDW 23.8 H Plt Count 138 MPV 7.0 L Neut % (Auto) 92.0 H Lymph % (Auto) 3.0 L Dunn % (Auto) 4.8 Eos % (Auto) 0.0 Baso % (Auto) 0.2 Neut # 7.2 H Lymph # 0.2 L Dunn # 0.4 Eos # 0.0 Baso # 0.0 Neutrophils % (Manual) 92 H Band Neutrophils % 1 Lymphocytes % (Manual) 2 L Monocytes % (Manual) 5 Nucleated RBC % 1 H Smudge Cells Present Platelet Estimate Normal Large Platelets Present Hypochromasia (manual) Slight Anisocytosis (manual) Marked pCO2 57 H pO2 122 H HCO3 37.5 H ABG pH 7.48 H ABG Total CO2 44.1 H ABG O2 Saturation 99.0 H ABG O2 Content 16.8 ABG Base Excess 16.2 H ABG Hemoglobin 12.3 ABG Carboxyhemoglobin 1.9 H POC ABG HHb (Measured) 1.0 ABG Methemoglobin 0.9 ABG O2 Capacity 17.0 Tawanda Test Yes A-a O2 Difference 92.0 Hgb O2 Saturation 96.3 Vent Mode A/c Mechanical Rate 12 FiO2 40.0 Tidal Volume 400 PEEP 5 Sodium 132 Potassium 3.9 Chloride 91 L Carbon Dioxide 38 H Anion Gap 7 L BUN 11 Creatinine 0.2 L Est GFR ( Amer) > 60 Est GFR (Non-Af Amer) > 60 Random Glucose 108 H Calcium 8.5 Total Bilirubin 0.5 AST 31 ALT 80 H Alkaline Phosphatase 101 Total Protein 4.9 L Albumin 2.6 L Globulin 2.4 Albumin/Globulin Ratio 1.1 Thyroxine (T4) 3.83 L TSH 3rd Generation 1.06 Ur 24 Hour Volume 2400 Urine 5-HIAA 24 Hour 36.7 H Assessment/Plan (1) Acute and chronic respiratory failure with hypercapnia Current Visit: Yes Status: Acute Comment: Open Tracheostomy 07/19 Continue Duonebs, VEnt support, Theophylline, Diuresis IV antibiotics follow up labs, CXR, ABG, f/u final results of bronchial washing (2) Acute exacerbation of CHF (congestive heart failure) Current Visit: Yes Status: Acute Comment: Echo 06/14: The systolic function is moderately impaired, EF 40-45 % and dilated RV with mild/mod deccrease RV function, diastolic inflow pattern is restrictive Diuresis, strict I&Os, daily Wt (3) Acute bronchitis with chronic obstructive pulmonary disease (COPD) Current Visit: Yes Status: Acute Priority: High Comment: Respiratory failure requiring prolonged intubation, failed multiple extubations PRVC AC: RR 16, TV 400, PEEP 5, FIO2 50% Underwent open Tracheostomy 07/19 Methylprednisone IV 40 mg Q 12H BD nebs (4) Osteomyelitis of mandible Current Visit: Yes Status: Acute Comment: Continue IV antibiotics as per ID Pain control with Percocet (5) Hx of breast cancer Current Visit: No Status: Chronic Priority: Low Comment: S/p bilateral mastectomy Continue Arimidex 1mg PO daily
--- NOTE | 2016-07-20 15:41 | PN ---
DATE: 07/20/2016 ROOM: 434 ICU. This is a 66-year-old female with congestive heart failure and supervening acute exacerbation of COPD , hypoxemia and respiratory acidosis, and is now being followed closely for hemodynamic monitoring. Moreover, she remains clinically and biochemically euthyroid at this time with the initiation of low dose medical therapy for hyperthyroidism. Her latest chemistries showed a BUN of 11, sodium 132, potassium 3.9, chloride 91, CO2 38, glucose 10 8, and creatinine 0.2. Her latest thyroid study showed a TSH of 1.06 and a total T4 of 3.83 indicati ve of acute sick euthyroid syndrome, and she remains biochemically euthyroid at this time. So for now, we will continue the low-dose Tapazole given as 5 mg daily as ordered. Will titrate incr ementally as indicated to optimize metabolic control. We will follow. Polly Vu MD cc: [id number] TT: 07/20/2016 15:41:11 Confirmation # [id number] Dictation # [id number] mn
--- NOTE | 2016-07-20 16:07 | CP.PCM.PN ---
Subjective - Date & Time of Evaluation Date of Evaluation: 07/20/16 Time of Evaluation: 15:56 - Subjective Subjective: ID NOTE HAVE REVIEWED STIILL C RESPIRATORY DIFFICULTY ANTIBIOTICS:ZYVOX CEFTAZADIME BACTRIM WBC:7.8 c LEFT SHIFT CREATININE: 0.2 ,GFR>60 LFTs IMPROVING NO CHANGE IN RX Objective - Vital Signs/Intake and Output Vital Signs (last 24 hours): Temp Pulse Resp BP Pulse Ox 98.3 F 127 H 14 122/74 98 07/20/16 12:00 07/20/16 14:00 07/20/16 14:00 07/20/16 14:00 07/20/16 14:00 Intake and Output: 07/20/16 07/20/16 06:59 18:59 Intake Total 140 562 Output Total 900 1000 Balance -760 -438 - Medications Medications: Current Medications Albuterol/Ipratropium (Duoneb 3 Mg/0.5 Mg (3 Ml) Ud) 3 ml INH RQID [facility] Last Admin: 07/20/16 11:59 Dose: 3 ml Alprazolam (Xanax) 0.25 mg PO Q12 [facility] Stop: 07/25/16 10:31 Last Admin: 07/20/16 12:55 Dose: 0.25 mg Anastrozole (Arimidex 1 Mg Tab) 1 mg PO DAILY [facility] Last Admin: 07/20/16 12:57 Dose: 1 mg Enoxaparin Sodium (Lovenox) 40 mg SC DAILY [facility] PRN Reason: Protocol Last Admin: 07/20/16 09:00 Dose: 40 mg Furosemide (Lasix) 20 mg IVP DAILY [facility] Last Admin: 07/20/16 08:52 Dose: 20 mg Gabapentin (Neurontin) 600 mg PO Q8 [facility] Last Admin: 07/20/16 09:00 Dose: Not Given Linezolid (Zyvox 600mg/300ml D5w) 300 mls @ 300 mls/hr IVPB Q12 [facility] Last Admin: 07/20/16 11:15 Dose: 300 mls/hr Ceftazidime 1 gm/ Sodium (Chloride) 100 mls @ 200 mls/hr IVPB Q8 [facility] Last Admin: 07/20/16 08:48 Dose: 200 mls/hr Fentanyl Citrate 2,500 mcg/ (Dextrose) 250 mls @ 5.7 mls/hr IV .Q24H ANDREAS; Per Protocol PRN Reason: Protocol Last Admin: 07/20/16 06:17 Dose: 11.6 mls/hr Methylprednisolone 30 mg/ (Sodium Chloride) 50 mls @ 100 mls/hr IV Q12 ANDREAS Last Admin: 07/20/16 08:56 Dose: 100 mls/hr Dexmedetomidine HCl 400 mcg/ (Sodium Chloride) 100 mls @ 2.7 mls/hr IV .Q24H ONE; 0.2 MCG/KG/HR PRN Reason: Protocol Stop: 07/21/16 13:59 Last Admin: 07/20/16 14:28 Dose: 2.7 mls/hr Lactobacillus Acidophilus (Bacid Acidophilus) 1 cap PO BID [facility] Last Admin: 07/20/16 09:13 Dose: Not Given Lorazepam (Ativan) 1 mg IVP Q4 PRN PRN Reason: Anxiety Last Admin: 07/19/16 21:48 Dose: 1 mg Methimazole (Tapazole) 5 mg PO DAILY [facility] Last Admin: 07/20/16 09:14 Dose: Not Given Multi-Ingredient Cream (Hydrocerin Cream) 1 applic TOP BID [facility] Last Admin: 07/20/16 08:59 Dose: 1 applic Nitroglycerin (Nitro-Bid 2% Oint) 1 in TOP Q6 [facility] Last Admin: 07/20/16 09:14 Dose: 1 in Pantoprazole Sodium (Protonix Inj) 40 mg IVP DAILY [facility] Last Admin: 07/20/16 08:55 Dose: 40 mg Spironolactone (Aldactone) 25 mg PO DAILY [facility] Last Admin: 07/20/16 12:59 Dose: 25 mg Trimethoprim/Sulfamethoxazole (Sulfatrim Pediatric Susp) 20 ml PO Q12 [facility] Last Admin: 07/20/16 09:14 Dose: Not Given - Labs Labs: 07/20/16 05:40 07/20/16 05:40 PT 12.0 SECONDS (9.6-11.2) H 07/19/16 04:20 INR 1.15 (0.92-1.08) H 07/19/16 04:20 APTT 27.7 SECONDS (23.3-32.5) 07/09/16 08:00
--- NOTE | 2016-07-20 16:50 | CP.PCM.PN ---
Subjective - Date & Time of Evaluation Date of Evaluation: 07/20/16 Time of Evaluation: 09:30 - Subjective Subjective: Patient seen and examined bedside. s/p tracheostomy done yesterday, on MV PRVC Ac mode 12/400/5/40 5 Appears comfortable, denies any pain at present . Uncomfortable from the trache touching under her chin Hemodynamically stable BP 122/77 Still trachy HR 122 afebrile With episode of not getting enough volume from vent last night that improved after trache repositioned by pushing in further and tying tighter to the neck CXR showed some improvement of right infiltrate WBC 7.8 Hgb 11 Plt 138 K QABG 57/122/37/7.48 Objective - Vital Signs/Intake and Output Vital Signs (last 24 hours): Temp Pulse Resp BP Pulse Ox 98.3 F 127 H 14 122/74 98 07/20/16 12:00 07/20/16 14:00 07/20/16 14:00 07/20/16 14:00 07/20/16 14:00 Intake and Output: 07/20/16 07/20/16 06:59 18:59 Intake Total 140 562 Output Total 900 1000 Balance -760 -438 - Medications Medications: Current Medications Albuterol/Ipratropium (Duoneb 3 Mg/0.5 Mg (3 Ml) Ud) 3 ml INH RQID [facility] Last Admin: 07/20/16 11:59 Dose: 3 ml Alprazolam (Xanax) 0.25 mg PO Q12 [facility] Stop: 07/25/16 10:31 Last Admin: 07/20/16 12:55 Dose: 0.25 mg Anastrozole (Arimidex 1 Mg Tab) 1 mg PO DAILY [facility] Last Admin: 07/20/16 12:57 Dose: 1 mg Enoxaparin Sodium (Lovenox) 40 mg SC DAILY [facility] PRN Reason: Protocol Last Admin: 07/20/16 09:00 Dose: 40 mg Furosemide (Lasix) 20 mg IVP DAILY [facility] Last Admin: 07/20/16 08:52 Dose: 20 mg Gabapentin (Neurontin) 600 mg PO Q8 [facility] Last Admin: 07/20/16 09:00 Dose: Not Given Linezolid (Zyvox 600mg/300ml D5w) 300 mls @ 300 mls/hr IVPB Q12 [facility] Last Admin: 07/20/16 11:15 Dose: 300 mls/hr Ceftazidime 1 gm/ Sodium (Chloride) 100 mls @ 200 mls/hr IVPB Q8 [facility] Last Admin: 07/20/16 08:48 Dose: 200 mls/hr Fentanyl Citrate 2,500 mcg/ (Dextrose) 250 mls @ 5.7 mls/hr IV .Q24H [facility]; Per Protocol PRN Reason: Protocol Last Admin: 07/20/16 06:17 Dose: 11.6 mls/hr Methylprednisolone 30 mg/ (Sodium Chloride) 50 mls @ 100 mls/hr IV Q12 [facility] Last Admin: 07/20/16 08:56 Dose: 100 mls/hr Dexmedetomidine HCl 400 mcg/ (Sodium Chloride) 100 mls @ 2.7 mls/hr IV .Q24H ONE; 0.2 MCG/KG/HR PRN Reason: Protocol Stop: 07/21/16 13:59 Last Admin: 07/20/16 14:28 Dose: 2.7 mls/hr Lactobacillus Acidophilus (Bacid Acidophilus) 1 cap PO BID [facility] Last Admin: 07/20/16 09:13 Dose: Not Given Lorazepam (Ativan) 1 mg IVP Q4 PRN PRN Reason: Anxiety Last Admin: 07/19/16 21:48 Dose: 1 mg Methimazole (Tapazole) 5 mg PO DAILY [facility] Last Admin: 07/20/16 09:14 Dose: Not Given Multi-Ingredient Cream (Hydrocerin Cream) 1 applic TOP BID [facility] Last Admin: 07/20/16 08:59 Dose: 1 applic Nitroglycerin (Nitro-Bid 2% Oint) 1 in TOP Q6 [facility] Last Admin: 07/20/16 09:14 Dose: 1 in Pantoprazole Sodium (Protonix Inj) 40 mg IVP DAILY [facility] Last Admin: 07/20/16 08:55 Dose: 40 mg Spironolactone (Aldactone) 25 mg PO DAILY [facility] Last Admin: 07/20/16 12:59 Dose: 25 mg Trimethoprim/Sulfamethoxazole (Sulfatrim Pediatric Susp) 20 ml PO Q12 [facility] Last Admin: 07/20/16 09:14 Dose: Not Given - Labs Labs: 07/20/16 05:40 07/20/16 05:40 PT 12.0 SECONDS (9.6-11.2) H 03/13/17 04:20 INR 1.15 (0.92-1.08) H 07/19/16 04:20 APTT 27.7 SECONDS (23.3-32.5) 07/09/16 08:00 - Constitutional Appears: No Acute Distress, Chronically Ill, Other (intubated vi atrache) - Head Exam Head Exam: ATRAUMATIC, NORMOCEPHALIC - Eye Exam Eye Exam: EOMI, Normal appearance, PERRL Pupil Exam: NORMAL ACCOMODATION - ENT Exam ENT Exam: Mucous Membranes Moist, Normal Exam - Neck Exam Neck Exam: Full ROM, Normal Inspection - Respiratory Exam Respiratory Exam: Decreased Breath Sounds, Clear to Ausculation Bilateral. absent: Rales, Rhonchi, Wheezes - Cardiovascular Exam Cardiovascular Exam: Tachycardia, +S1, +S2. absent: JVD - GI/Abdominal Exam GI & Abdominal Exam: Soft, Normal Bowel Sounds. absent: Distended, Guarding, Tenderness, Rebound - Rectal Exam Rectal Exam: Deferred - Extremities Exam Extremities Exam: Pedal Edema Additional comments: bilateral weeping thigh edema small laceration lateral to right knee - Neurological Exam Neurological Exam: Alert, Awake - Psychiatric Exam Psychiatric exam: Flat Affect - Skin Skin Exam: Dry, Pallor, Warm Additional comments: multiple echymotic areas to upper chest and LUE lymphedema ro RUE Assessment and Plan - Assessment and Plan (Free Text) Assessment: 66 y/o female PMH COPD, bilateral breast CA s/p chemo and radiation 8 years ago , HTN, Hyperthyroidism presented with 2 week history of worsening bilateral lower extremity swelling and weakness, unable to get herself up to her walker. Patient has mild dyspnea at baseline. She also came with a large right facial swelling for almost 2 weeks and was taking PO antibiotics prescribed by her dentist. Patient was admitted for generalized weakness , Hyponatremia and Facial abscess. She was started on IV antibiotics for facial abscess and Lasix IV with fluid restriction for LE edema. Maxillofacial Ct showed possible abscess accumulation. Evaluated by Oromaxillofacial surgeon and underwent Incision and drainage of abscess. Bone scan showed possible osteomyelitis . ID recommends 4-6 wks IV abx treatment. During this hospitalization noted to have increased dyspnea at rest and more so with minimal activity, decreased air entry bilaterally and increased work of breathing. She was started on high flow O2, Higher doses of theophylline and IV hydrocortisone. CTA chest and LE doppler showed no DVT. She was transferred to ICU for close monitoring for tachypnea and tachycardia. She underwent IR drainage on 06/24 of right facial abscess due to reaccumulation and cultures came positive for VRE and amanda. Antibiotics were changed to Zyvox , Meropenem and Fluconazone. Despite drainage and IV antibiotics she still kept complaining of pain to right supramandibular area with increased swelling. Repeat CT showed abscess formation. Patient underwent I&D in OR 07/06/16 with cynthia drainage placement. She continues to have episodes of resp distress - tachypneic , tachycardic , with chest congestion , unable to expectorate despite high flow O2 therapy, Duonebs and Corticosteroids. 07/07/16 underwent Bronchoscopy. BAL showed Stenotrophomonas Maltophilia. Antibiotics changed to IV bactrim, Fortaz, Zyvox and Fluconazole. On 07/09 she developed severe respiratory distress with hypoxemia requiring intubation and extubated on 07/14. 07/15 : again noted to be in resp distress, tachypneic , tachycardic so was reintubated. s/pp tracheostomy placement 07/19. eWill continue weaning trials as per pulmonary if tolerated possible discharge to [facility] 1. Acute on Chronic Respiratory Failure with hypercapnea Multiple trials of intubation and extubation this admission , failing extubation. Still intubated on MV PRVC/ Ac mode 12/400/5/40 % s/p bronchoscopy 07/07/16 with BAL growing Stenotrophomonas maltophilla. Continue bactrim, Fortaz, and zyvox as per ID on Methylprednisone 40 mg Iv q12, Xopenex, albuterol and tiotropium inhaler Intubated on 07/09 and extubated 07/14 however again reintubated 07/16 for resp distress Surgery: Dr Julio consulted and patient had trache placed 07/19 Pulmonary: Dr Benz, is following pt closely Weaning trials as per pulmonary 2. Chest Pain , prob sec to Anxiety, ACS ruled out with recurrent pressure like chest pain on and off cardiology consulted Dr. Luu Trop -- negative and EKG showed no ST-T wave changes Most likely atypical chest pain related to anxiety , hypokalemia and COPD, no signs of ischemia Pain mgt consulted- Dr Verdugo Pt is on fentanyl drip Ativan prn 3. Facial abscess with mandibular Osteomyelitis s/p drainage of abscess with penreose drain placement s/p Incision and drainage on 06/[address] Anderson maxillofacial surgeon and rpt I&D 07/06 pathology report showed inflammatory cells, no malignancy Nuclear Bone Scan suggestive of osteomyelitis initial cultures were with no growth ID consult with Dr Obrien appreciated . Recommended IV abx 6 wks total ( has been on antibiotics for 6 weeks , started Iv antibiotics 06/04/16) Tunneled central line placed for superintendent terminal IV antibiotics- this will need to be d/c by IR after IV abx treatment is completed ( as discussed with Dr Gunter - pt was informed of need to see IR after abx tx) Due to increased swelling and pain patient underwent drainage of facial collection by IR on 06/24 and 24 ml yellow fluid obtained. Cultures reported as VRE and Amanda Howell drain d/c by dr Ambrose on Zyvox , Bactrim, Fortaz Discontinued Fluconazole due to abnormal LFT-s 4. Bilateral LE edema sec to CHF exacerbation with diastolic dysfxn Echo showed EF 40-45 % and dilated RV continue fluid restriction Promote ambulation once better cont Aldactone 5. Hypokalemia multifactorial diuretic induced , Albuterol, Hypothyroidism and GI loss off Lasix, on Aldactone Continue KCl runs and PO replacement as needed Nephro consult appreciated CT of abd showed no adrenal mass 6 .Hyponatremia most likely secondary to solute depletion and infection Continue fluid restriction 7.Hx breast ca, bilateral stable, s/p bilateral mastectomy continue Arimidex 8. Tachycardia -- multifactorial Hx of HTN was on verapamil at home ( 80mg tid) but decreased dose due to low BP and now discontinued as may contribute to leg edema- discussed with Dr Turcios- restarted Verapamil low dose continue monitoring patient with high levels of anxiety and pain called Dr Verdugo for Pain mgt , discussed case Pt on Fentanyl drip 9. Hypothyroidism/ Hyperthyroidism patient has history of hyperthyroidism , was on Methimazole and noticed to had developed hypothyroidism so Methimazole was d/c and she was started on Po levothyroxine this admission , TSH then went down and Metrhimazole restarted Methimazole 5 mg po daily restarted as discussed with Dr Vu 10. Anemia, chronic dis monitor anemia work up showed depleted iron stores Venofer IV given s/p 2 units PRBC transfusion 11. Right cephalic vein thrombosis ( superficial vein) no need for therapeutic anticoag 12.Thrombocytopenia improving Most likely related to bone marrow suppression and multiple medication use Continue monitoring 13.DVT ppx on lovenox
[2016-07-21] MEDS ORDERED: Sodium Chloride 0.9% 250 ML IV SCH (02:15)
[2016-07-21 05:24] LABS: ABG ALLEN TEST YES; ABG MECHANICAL RATE 12; ARTERIAL BLOOD GAS HCO3 39.3 mmol/L (21-28); ARTERIAL BLOOD GAS MODE PRVC/AC; ARTERIAL BLOOD GAS O2 CAPACITY 16.2 mL/dL (16-24); ARTERIAL BLOOD GAS PO2 108 mm/Hg (80-100); ARTERIAL BLOOD HGB O2 SAT 96.1 % (95.0-98.0); ATERIAL BLOOD GAS PEEP 5; CARBOXYHEMOGLOBIN 2.2 % (0.5-1.5); METHEMOGLOBIN 0.7 % (0.0-3.0)
[2016-07-21 05:26] LABS: HEMATOCRIT 35.5 % (34.0-47.0); MEAN CELL VOLUME 86.9 fl (81.0-99.0); MEAN CORPUSCULAR HEMOGLOBIN 28.5 pg (27.0-31.0); MEAN CORPUSCULAR HGB CONC 32.8 g/dL (33.0-37.0); RED CELL DISTRIBUTION WIDTH 23.1 % (11.5-14.5); WHITE BLOOD COUNT 5.5 K/uL (4.8-10.8)
[2016-07-21 05:45] LABS: BLOOD UREA NITROGEN 10 mg/dl (7-17); CALCIUM 8.3 mg/dL (8.4-10.2); CARBON DIOXIDE 38 mmol/L (22-30); CHLORIDE 92 mmol/L (98-107); GFR AFRICAN-AMERICAN > 60; GLUCOSE,RANDOM 165 mg/dL (65-105); POTASSIUM 4.1 MMOL/L (3.6-5.0); SODIUM 138 mmol/l (132-148)
[2016-07-21] MEDS: Nitroglycerin 2% 1GM UD TOP SCH ×4 (05:58→22:00)
[2016-07-21] MEDS: Albuterol-Ipratrop 3 mg / 0.5 (3 ml) UD INH SCH ×4 (08:35→20:00)
[2016-07-21] MEDS: Lactobacillus Acidophilus 500 MU Cap PO SCH ×2 (08:49→16:39)
[2016-07-21] MEDS: Hydrocerin CREAM TOP SCH ×2 (08:50→16:36)
[2016-07-21] MEDS: Enoxaparin 40 mg Syringe SC SCH (08:51)
[2016-07-21] MEDS: Tmp-Smz 200-40mg/5 ml Oral Sus(120 ml) PO SCH ×2 (08:53→20:26)
[2016-07-21] MEDS: methIMAzole 5 MG TAB PO SCH (08:55)
--- NOTE | 2016-07-21 10:07 | RAD ---
PROCEDURE: CHEST RADIOGRAPH, 1 VIEW HISTORY: intubated COMPARISON: 07/20/2016 FINDINGS: LUNGS: Opacity at right lung base unchanged. New left perihilar opacity. PLEURA: Small bilateral pleural effusion. No pneumothorax. CARDIOVASCULAR: Normal heart size. Tracheostomy and nasogastric tubes and right central venous infusion port unchanged. OSSEOUS STRUCTURES: No significant abnormalities. VISUALIZED UPPER ABDOMEN: Normal. OTHER FINDINGS: None. IMPRESSION: Persistent right basilar opacity and new left perihilar opacity. Probable small bilateral pleural effusion. Lines and tubes unchanged.
[2016-07-21] MEDS: Linezolid 600 mg in D5W 300 ml 300 ML IVPB SCH ×2 (10:16→20:26)
--- NOTE | 2016-07-21 10:25 | CP.PCM.PN ---
Subjective - Date & Time of Evaluation Date of Evaluation: 07/21/16 Time of Evaluation: 09:00 - Subjective Subjective: No fever s/p Trach on Vent NHGT in place - tolerating feeding OFF sedation looks comfortable no diarrhea no pain at present and seem to be in good spirits denies abd pain Objective - Vital Signs/Intake and Output Vital Signs (last 24 hours): Temp Pulse Resp BP Pulse Ox 97.8 F 99 H 18 110/60 99 07/21/16 08:00 07/21/16 09:00 07/21/16 09:00 07/21/16 09:00 07/21/16 09:00 Intake and Output: 07/21/16 07/21/16 06:59 18:59 Intake Total 1870 100 Output Total 800 0 Balance 1070 100 - Medications Medications: Current Medications Albuterol/Ipratropium (Duoneb 3 Mg/0.5 Mg (3 Ml) Ud) 3 ml INH RQID [facility] Last Admin: 07/21/16 08:35 Dose: 3 ml Alprazolam (Xanax) 0.25 mg PO Q12 [facility] Stop: 07/25/16 10:31 Last Admin: 07/21/16 09:15 Dose: 0.25 mg Anastrozole (Arimidex 1 Mg Tab) 1 mg PO DAILY [facility] Last Admin: 07/21/16 08:49 Dose: 1 mg Enoxaparin Sodium (Lovenox) 40 mg SC DAILY [facility] PRN Reason: Protocol Last Admin: 07/21/16 08:51 Dose: 40 mg Famotidine (Pepcid) 40 mg PO DAILY [facility] Furosemide (Lasix) 20 mg IVP DAILY [facility] Last Admin: 07/21/16 08:50 Dose: Not Given Gabapentin (Neurontin) 600 mg PO Q8 [facility] Last Admin: 07/21/16 08:52 Dose: 600 mg Linezolid (Zyvox 600mg/300ml D5w) 300 mls @ 300 mls/hr IVPB Q12 [facility] Last Admin: 07/21/16 10:16 Dose: 300 mls/hr Ceftazidime 1 gm/ Sodium (Chloride) 100 mls @ 200 mls/hr IVPB Q8 [facility] Last Admin: 07/21/16 08:46 Dose: 200 mls/hr Methylprednisolone 30 mg/ (Sodium Chloride) 50 mls @ 100 mls/hr IV DAILY [facility] Lactobacillus Acidophilus (Bacid Acidophilus) 1 cap PO BID [facility] Last Admin: 07/21/16 08:49 Dose: 1 cap Methimazole (Tapazole) 5 mg PO DAILY [facility] Last Admin: 07/21/16 08:55 Dose: 5 mg Multi-Ingredient Cream (Hydrocerin Cream) 1 applic TOP BID [facility] Last Admin: 07/21/16 08:50 Dose: 1 applic Nitroglycerin (Nitro-Bid 2% Oint) 1 in TOP Q6 [facility] Last Admin: 07/21/16 05:58 Dose: Not Given Spironolactone (Aldactone) 25 mg PO DAILY [facility] Last Admin: 07/21/16 08:48 Dose: 25 mg Trimethoprim/Sulfamethoxazole (Sulfatrim Pediatric Susp) 20 ml PO Q12 [facility] Last Admin: 07/21/16 08:53 Dose: 20 ml - Labs Labs: 07/21/16 04:35 07/21/16 04:35 PT 12.0 SECONDS (9.6-11.2) H 07/19/16 04:20 INR 1.15 (0.92-1.08) H 07/19/16 04:20 APTT 27.7 SECONDS (23.3-32.5) 07/09/16 08:00 - Constitutional Appears: Not in any Distress, Older Than Stated Age, Chronically Ill s/p Tracheostomy on Vent NGT in place - Head Exam Head Exam: NORMAL INSPECTION, NORMOCEPHALIC Right facial abscess incision looks clean, now smaller however still sl tender - Eye Exam Eye Exam: EOMI, Normal appearance Pupil Exam: NORMAL ACCOMODATION - ENT Exam ENT Exam: Mucous Membranes Dry, Normal External Ear Exam NGT in place - Neck Exam Neck Exam: Full ROM. absent: Meningismus s/p Trach - Respiratory Exam Respiratory Exam: Accessory Muscle Use, Chest Wall Tenderness, Decreased Breath Sounds, Rhonchi, Respiratory Distress - Cardiovascular Exam Cardiovascular Exam: Tachycardia, REGULAR RHYTHM, +S1, +S2 - GI/Abdominal Exam GI & Abdominal Exam: Soft, Normal Bowel Sounds. absent: Tenderness OGT in place - Extremities Exam Extremities Exam: absent: Calf Tenderness, Normal Capillary Refill Additional comments: Right arm edema right shoulder post surgical deformity - Neurological Exam Additional comments: awake , nods to say yes, follows simple commands oriented - Psychiatric Exam Psychiatric exam: Flat Affect - Skin Additional comments: noted ecchymosis denise on chest and LE Assessment and Plan (1) Acute and chronic respiratory failure with hypercapnia Status: Acute (2) Osteomyelitis of mandible Status: Acute (3) Hypothyroidism Status: Acute (4) Acute exacerbation of chronic obstructive pulmonary disease (COPD) Status: Acute (5) HTN (hypertension) Status: Chronic (6) Hx of breast cancer Status: Chronic (7) Acute exacerbation of CHF (congestive heart failure) Status: Acute (8) Hypokalemia Status: Acute (9) Facial abscess Status: Acute (10) DVT prophylaxis Status: Acute - Assessment and Plan (Free Text) Assessment: 66 y/o female PMH COPD, bilateral breast CA s/p chemo and radiation 8 years ago , HTN, Hyperthyroidism presented with 2 week history of worsening bilateral lower extremity swelling and weakness, unable to get herself up to her walker. Patient has mild dyspnea at baseline. She also came with a large right facial swelling for almost 2 weeks and was taking PO antibiotics prescribed by her dentist. Patient was admitted for generalized weakness , Hyponatremia and Facial abscess. She was started on IV antibiotics for facial abscess and Lasix IV with fluid restriction for LE edema. Maxillofacial Ct showed possible abscess accumulation. Evaluated by Oromaxillofacial surgeon and underwent Incision and drainage of abscess. Bone scan showed possible osteomyelitis . ID recommends 4-6 wks IV abx treatment. During this hospitalization noted to have increased dyspnea at rest and more so with minimal activity, decreased air entry bilaterally and increased work of breathing. She was started on high flow O2, Higher doses of theophylline and IV hydrocortisone. CTA chest and LE doppler showed no DVT. She was transferred to ICU for close monitoring for tachypnea and tachycardia. She underwent IR drainage on 06/24 of right facial abscess due to reaccumulation and cultures came positive for VRE and bria. Antibiotics were changed to Zyvox , Meropenem and Fluconazone. Despite drainage and IV antibiotics she still kept complaining of pain to right supramandibular area with increased swelling. Repeat CT showed abscess formation. Patient underwent I&D in OR 07/06/16 with cynthia drainage placement. She continues to have episodes of resp distress - tachypneic , tachycardic , with chest congestion , unable to expectorate despite high flow O2 therapy, Duonebs and Corticosteroids. 07/07/16 underwent Bronchoscopy. BAL showed Stenotrophomonas Maltophilia. Antibiotics changed to IV bactrim, Fortaz, Zyvox and Fluconazole. On 07/09 she developed severe respiratory distress with hypoxemia requiring intubation and extubated on 07/14. 07/15 : again noted to be in resp distress, tachypneic , tachycardic so was reintubated. s/p tracheostomy placement 07/19. Plan for poss d/c to [facility] 1. Acute on Chronic Respiratory Failure with hypercapnea Multiple trials of intubation and extubation , failed extubation s/p Tracheostomy Bronchoscopy 07/07/16 with BAL growing Stenotrophomonas maltophilla. Continue bBactrim, Fortaz, and zyvox as per ID on Methylprednisone 30 mg Iv q24, Xopenex, albuterol and tiotropium inhaler Intubated on 07/09 and extubated 07/14 however again reintubated 07/16 for resp distress Surgery: Dr Julio consulted and patient had trach placed 07/19 Pulmonary: Dr Benz, is following pt closely Weaning trials as per pulmonary 2. Chest Pain , prob sec to Anxiety, ACS ruled out with recurrent pressure like chest pain on and off cardiology consulted Dr. Luu Trop -- negative and EKG showed no ST-T wave changes Most likely atypical chest pain related to anxiety , hypokalemia and COPD, no signs of ischemia Pain mgt consulted- Dr Kartik Chandler prn 3. Facial abscess with mandibular Osteomyelitis s/p drainage of abscess with penreose drain placement s/p Incision and drainage on 06/[address] Anderson maxillofacial surgeon and rpt I&D 07/06 pathology report showed inflammatory cells, no malignancy Nuclear Bone Scan suggestive of osteomyelitis initial cultures were with no growth ID consult with Dr Obrien Tunneled central line placed for longterm IV antibiotics- this will need to be d/c by IR after IV abx treatment is completed ( as discussed with Dr Gunter - pt was informed of need to see IR after abx tx) Due to increased swelling and pain patient underwent drainage of facial collection by IR on 06/24 and 24 ml yellow fluid obtained. Cultures reported as VRE and Bria [place] drain d/c by dr Ambrose on Zyvox , Bactrim, Fortaz ( received 6 wks total IV abx ) - discussed with Dr Obrien - rec to continue IV abx for now Discontinued Fluconazole due to abnormal LFT-s 4. Bilateral LE edema sec to CHF exacerbation with diastolic dysfxn Echo showed EF 40-45 % and dilated RV continue fluid restriction Promote ambulation once better cont Aldactone 5. Hypokalemia multifactorial diuretic induced , Albuterol, Hypothyroidism and GI loss off Lasix, on Aldactone Continue KCl runs and PO replacement as needed Nephro consult appreciated CT of abd showed no adrenal mass 6 .Hyponatremia most likely secondary to solute depletion and infection Continue fluid restriction 7.Hx breast ca, bilateral stable, s/p bilateral mastectomy continue Arimidex 8. Tachycardia -- multifactorial Hx of HTN was on verapamil at home ( 80mg tid) but decreased dose due to low BP and now discontinued as may contribute to leg edema- discussed with Dr Turcios- restarted Verapamil low dose continue monitoring patient with high levels of anxiety and pain called Dr Verdugo for Pain mgt , discussed case off Sedation today 9. Hypothyroidism/ Hyperthyroidism patient has history of hyperthyroidism , was on Methimazole and noticed to had developed hypothyroidism so Methimazole was d/c and she was started on Po levothyroxine this admission , TSH then went down and Metrhimazole restarted Methimazole 5 mg po daily restarted as discussed with Dr Vu 10. Anemia, chronic dis monitor anemia work up showed depleted iron stores Venofer IV given s/p 2 units PRBC transfusion 11. Right cephalic vein thrombosis ( superficial vein) no need for therapeutic anticoag 12.Thrombocytopenia improving Most likely related to bone marrow suppression and multiple medication use Continue monitoring 13. Thrombocytopenia improved prob sec to meds , 14.DVT ppx on lovenox
--- NOTE | 2016-07-21 12:33 | CP.CCUPN ---
<LibanHeladio T - Last Filed: 07/21/16 12:36> CCU Subjective - Physician Review Subjective (Free Text): Pt is seen and examined at bedside in the ICU. Pt intubated via tracheotomy. She denies any acute overnight events or problems. Also denies f/c/n/v/d, chest pain, sob, dyspnea, abdominal pain, or other myalgias. CCU Objective - Vital Signs / Intake & Output Vital Signs (Last 4 hours): Vital Signs Temp Pulse Resp BP Pulse Ox 07/21/16 12:00 97.7 F 114 H 16 122/68 100 07/21/16 11:00 122 H 15 100 07/21/16 10:00 102 H 18 112/65 100 07/21/16 09:00 99 H 18 110/60 99 07/21/16 08:50 88/57 L Intake and Output (Last 8hrs): Intake & Output 07/20/16 07/21/16 07/21/16 22:59 06:59 14:59 Intake Total 883 1170 880 Output Total 1600 800 0 Balance -717 370 880 Weight 120 lb Intake: IV 63 200 40 Intake, Piggyback 500 290 450 Tube Feeding 220 480 240 Free Water Flush 100 200 150 Output: Gastric Amount 0 0 Stomach 0 0 Urine 1600 800 Urethral (Gutierrez) 1600 800 Other: # Bowel Movements 0 1 1 - Physical Exam Head: Positive for: Atraumatic, Swelling (R mandible, improving). Negative for : Ecchymosis Pupils: Positive for: PERRL. Negative for: Sluggish, Non-Reactive Extroacular Muscles: Positive for: EOMI. Negative for: Gaze Palsy, Entrapment Conjunctiva: Positive for: Normal Mouth: Positive for: Moist Mucous Membranes Neck: Positive for: Trachea Midline, Other (tracheotomy). Negative for: MIDLINE TENDERNESS, Paraspinal Tenderness, JVD, Lymphadenopathy, Bruit Respiratory/Chest: Positive for: Clear to Auscultation, Good Air Exchange, Decreased Breath Sounds. Negative for: Respiratory Distress, Accessory Muscle Use, Wheezes, Rhonchi Cardiovascular: Positive for: Normal S1, S2, Peripheal Pulses Present, Tachycardic. Negative for: Murmurs, Irregular Rhythm Abdomen: Positive for: Normal Bowel Sounds. Negative for: Tenderness Upper Extremity: Positive for: NORMAL PULSES, Capillary Refill < 2s, Other (L arm presents w/o edema, normal pulses; Rt arm edema). Negative for: Cyanosis, Tenderness Lower Extremity: Positive for: Edema, NORMAL PULSES. Negative for: CALF TENDERNESS Neurological: Positive for: GCS=15, Other (tracheotomy) Skin: Positive for: Warm, Dry, Normal Color Psychiatric: Positive for: Alert, Oriented x 3 - Medications Active Medications: Active Medications Generic Name Dose Route Start Last Admin Trade Name Freq PRN Reason Stop Dose Admin Albuterol/Ipratropium 3 ml 07/19/16 12:00 07/21/16 12:05 Duoneb 3 Mg/0.5 Mg (3 Ml) Ud INH 3 ml RQID ANDREAS Administration Alprazolam 0.25 mg 07/18/16 10:30 07/21/16 09:15 Xanax PO 07/25/16 10:31 0.25 mg Q12 ANDREAS Administration Anastrozole 1 mg 07/07/16 09:00 07/21/16 08:49 Arimidex 1 Mg Tab PO 1 mg DAILY ANDREAS Administration Enoxaparin Sodium 40 mg 07/16/16 13:15 07/21/16 08:51 Lovenox SC 40 mg DAILY ANDREAS Administration Protocol Famotidine 40 mg 07/22/16 09:00 Pepcid PO DAILY ANDREAS Furosemide 20 mg 07/18/16 10:30 07/21/16 08:50 Lasix IVP Not Given DAILY ANDREAS Gabapentin 600 mg 07/06/16 17:00 07/21/16 08:52 Neurontin PO 600 mg Q8 ANDREAS Administration Linezolid 300 mls @ 300 mls/hr 07/06/16 21:00 07/21/16 10:16 Zyvox 600mg/300ml D5w IVPB 300 mls/hr Q12 ANDREAS Administration Ceftazidime 1 gm/ Sodium 100 mls @ 200 mls/hr 07/13/16 01:00 07/21/16 08:46 Chloride IVPB 200 mls/hr Q8 ANDREAS Administration Methylprednisolone 30 mg/ 50 mls @ 100 mls/hr 07/22/16 09:00 Sodium Chloride IV DAILY ANDREAS Lactobacillus Acidophilus 1 cap 07/06/16 17:00 07/21/16 08:49 Bacid Acidophilus PO 1 cap BID ANDREAS Administration Methimazole 5 mg 07/14/16 09:00 07/21/16 08:55 Tapazole PO 5 mg DAILY ANDREAS Administration Multi-Ingredient Cream 1 applic 07/06/16 17:00 07/21/16 08:50 Hydrocerin Cream TOP 1 applic BID ANDREAS Administration Nitroglycerin 1 in 07/06/16 16:00 07/21/16 10:28 Nitro-Bid 2% Oint TOP Not Given Q6 ANDREAS Spironolactone 25 mg 07/07/16 09:00 07/21/16 08:48 Aldactone PO 25 mg DAILY ANDREAS Administration Trimethoprim/Sulfamethoxazole 20 ml 07/17/16 21:00 07/21/16 08:53 Sulfatrim Pediatric Susp PO 20 ml Q12 ANDREAS Administration - Patient Studies Lab Studies: Lab Studies 07/21/16 07/21/16 07/20/16 Range/Units 04:59 04:35 05:11 WBC 5.5 (4.8-10.8) K/uL RBC 4.09 (3.80-5.20) Mil/uL Hgb 11.7 L (12.0-16.0) g/dL Hct 35.5 (34.0-47.0) % MCV 86.9 (81.0-99.0) fl MCH 28.5 (27.0-31.0) pg MCHC 32.8 L (33.0-37.0) g/dL RDW 23.1 H (11.5-14.5) % Plt Count 124 L (130-400) K/uL pCO2 57 H 57 H (35-45) mm/Hg pO2 108 H 122 H (80-100) mm/Hg HCO3 39.3 H 37.5 H (21-28) mmol/L ABG pH 7.50 H 7.48 H (7.35-7.45) ABG Total CO2 46.2 H 44.1 H (22-28) mmol/L ABG O2 Saturation 99.0 H 99.0 H (95-98) % ABG O2 Content 16.0 16.8 (15-23) ML/dL ABG Base Excess 18.5 H 16.2 H (-2.0-3.0) mmol/L ABG Hemoglobin 11.7 12.3 (11.7-17.4) g/dL ABG Carboxyhemoglobin 2.2 H 1.9 H (0.5-1.5) % POC ABG HHb (Measured) 1.0 1.0 (0.0-5.0) % ABG Methemoglobin 0.7 0.9 (0.0-3.0) % ABG O2 Capacity 16.2 17.0 (16-24) mL/dL Tawanda Test Yes Yes A-a O2 Difference 106.0 92.0 mm/Hg Hgb O2 Saturation 96.1 96.3 (95.0-98.0) % Vent Mode Prvc/ac A/c Mechanical Rate 12 12 FiO2 40.0 40.0 % Tidal Volume 400 400 PEEP 5 5 Sodium 138 (132-148) mmol/l Potassium 4.1 (3.6-5.0) MMOL/L Chloride 92 L (98-107) mmol/L Carbon Dioxide 38 H (22-30) mmol/L Anion Gap 12 (10-20) BUN 10 (7-17) mg/dl Creatinine 0.2 L (0.7-1.2) mg/dL Est GFR ( Amer) > 60 Est GFR (Non-Af Amer) > 60 Random Glucose 165 H (65-105) mg/dL Calcium 8.3 L (8.4-10.2) mg/dL Urine 5-HIAA 24 Hour (<=6.0) mg/24 h 07/16/16 Range/Units 07:13 WBC (4.8-10.8) K/uL RBC (3.80-5.20) Mil/uL Hgb (12.0-16.0) g/dL Hct (34.0-47.0) % MCV (81.0-99.0) fl MCH (27.0-31.0) pg MCHC (33.0-37.0) g/dL RDW (11.5-14.5) % Plt Count (130-400) K/uL pCO2 (35-45) mm/Hg pO2 (80-100) mm/Hg HCO3 (21-28) mmol/L ABG pH (7.35-7.45) ABG Total CO2 (22-28) mmol/L ABG O2 Saturation (95-98) % ABG O2 Content (15-23) ML/dL ABG Base Excess (-2.0-3.0) mmol/L ABG Hemoglobin (11.7-17.4) g/dL ABG Carboxyhemoglobin (0.5-1.5) % POC ABG HHb (Measured) (0.0-5.0) % ABG Methemoglobin (0.0-3.0) % ABG O2 Capacity (16-24) mL/dL Tawanda Test A-a O2 Difference mm/Hg Hgb O2 Saturation (95.0-98.0) % Vent Mode Mechanical Rate FiO2 % Tidal Volume PEEP Sodium (132-148) mmol/l Potassium (3.6-5.0) MMOL/L Chloride (98-107) mmol/L Carbon Dioxide (22-30) mmol/L Anion Gap (10-20) BUN (7-17) mg/dl Creatinine (0.7-1.2) mg/dL Est GFR ( Amer) Est GFR (Non-Af Amer) Random Glucose (65-105) mg/dL Calcium (8.4-10.2) mg/dL Urine 5-HIAA 24 Hour 36.7 H (<=6.0) mg/24 h Laboratory Results - last 24 hr 07/16/16 07/20/16 07/21/16 07:13 05:11 04:35 WBC 5.5 RBC 4.09 Hgb 11.7 L Hct 35.5 MCV 86.9 MCH 28.5 MCHC 32.8 L RDW 23.1 H Plt Count 124 L pCO2 57 H pO2 122 H HCO3 37.5 H ABG pH 7.48 H ABG Total CO2 44.1 H ABG O2 Saturation 99.0 H ABG O2 Content 16.8 ABG Base Excess 16.2 H ABG Hemoglobin 12.3 ABG Carboxyhemoglobin 1.9 H POC ABG HHb (Measured) 1.0 ABG Methemoglobin 0.9 ABG O2 Capacity 17.0 Tawanda Test Yes A-a O2 Difference 92.0 Hgb O2 Saturation 96.3 Vent Mode A/c Mechanical Rate 12 FiO2 40.0 Tidal Volume 400 PEEP 5 Sodium 138 Potassium 4.1 Chloride 92 L Carbon Dioxide 38 H Anion Gap 12 BUN 10 Creatinine 0.2 L Est GFR ( Amer) > 60 Est GFR (Non-Af Amer) > 60 Random Glucose 165 H Calcium 8.3 L Urine 5-HIAA 24 Hour 36.7 H 07/21/16 04:59 WBC RBC Hgb Hct MCV MCH MCHC RDW Plt Count pCO2 57 H pO2 108 H HCO3 39.3 H ABG pH 7.50 H ABG Total CO2 46.2 H ABG O2 Saturation 99.0 H ABG O2 Content 16.0 ABG Base Excess 18.5 H ABG Hemoglobin 11.7 ABG Carboxyhemoglobin 2.2 H POC ABG HHb (Measured) 1.0 ABG Methemoglobin 0.7 ABG O2 Capacity 16.2 Tawanda Test Yes A-a O2 Difference 106.0 Hgb O2 Saturation 96.1 Vent Mode Prvc/ac Mechanical Rate 12 FiO2 40.0 Tidal Volume 400 PEEP 5 Sodium Potassium Chloride Carbon Dioxide Anion Gap BUN Creatinine Est GFR ( Amer) Est GFR (Non-Af Amer) Random Glucose Calcium Urine 5-HIAA 24 Hour Review of Systems - Review of Systems Review of Systems: see HPI Critical Care Progress Note - Ventilator Checklist Head of Bed 30 Degrees: Yes Daily Sedation Vacation: Yes Daily Assessment of Readiness to Wean: Yes Daily Spontaneous Breathing Trial: Yes PUD Prophalyxis: Yes DVT Prophylaxis: Yes Oral Care with Chlorhexidine Gluconate {CHG}: Yes - Vent Settings MODE:: PRVC TIDAL VOLUME:: 400 RESP RATE:: 12 FIO2:: 40 PEEP:: 5 Assessment/Plan - Assessment and Plan (Free Text) Plan: 66 yo F w PMHx of HTN, COPD, bilateral Breast cancer, h/o Hyperthyroidism is admitted to ICU for sob/dyspnea w/in setting of copd exacerbation 1) Acute on chronic respiratory failure with hypercapnea; setting of COPD -Tracheotomy due to repeated worsening respiratory function -Vent: PRVC/AC- Rate 12, TVol 400, PEEP 5, FiO2 40% -pCO2 57 (H), HCO3 39.3 (H), pH 7.50 (H) -previous bronchial washings grew Stenotrophomonas Maltophilia, ID onboard -Linezolid 600mg IVPB Q12H -Bactrim 435mg IVPB Q12H -Fortaz 1g IVPB Q8H -Spironolactone 25mg PO Daily -Methylprednisolone 30mg IV Daily -Duoneb 3mL RQ4H PRN -f/u ABGs -f/u respiratory function 2) Acute exacerbation of Systolic CHF -Echo (06/14): LVEF 40-45 %; Dilated RV with mild/mod decrease RV function, diastolic inflow pattern is restrictive -Spironolactone 25mg PO Daily -f/u strict I&Os -f/u Daily Wt 3) Anemia -Resolving -h/h currently 11.7/35.5 4) VRE (vancomycin resistant enterococcus) culture positive -mandible osteomyelitis wound Cx+ resulted: VRE -Linezolid 600mg IVPB Q12H -f/u OMFS regarding presence/course of drains 5) Chronic Pain -Had experienced intermittent pain near R shoulder, R upper chest, R anterior aspect of neck -Not correlated to any known factor -Presently asymptomatic 6) Anxiety -Xanax 0.25mg PO Q12H PRN 7) Hyperthyroidism -Methimazole 5mg PO BID <Landy Sunshine - Last Filed: 07/21/16 15:44> CCU Objective - Vital Signs / Intake & Output Vital Signs (Last 4 hours): Vital Signs Temp Pulse Resp BP Pulse Ox 07/21/16 12:00 97.7 F 114 H 16 122/68 100 Intake and Output (Last 8hrs): Intake & Output 07/21/16 07/21/16 07/21/16 06:59 14:59 22:59 Intake Total 1170 880 Output Total 800 0 Balance 370 880 Weight 120 lb Intake: IV 200 40 Intake, Piggyback 290 450 Tube Feeding 480 240 Free Water Flush 200 150 Output: Gastric Amount 0 0 Stomach 0 0 Urine 800 Urethral (Gutierrez) 800 Other: # Bowel Movements 1 1 - Medications Active Medications: Active Medications Generic Name Dose Route Start Last Admin Trade Name Freq PRN Reason Stop Dose Admin Albuterol/Ipratropium 3 ml 07/19/16 12:00 07/21/16 12:05 Duoneb 3 Mg/0.5 Mg (3 Ml) Ud INH 3 ml RQID ANDREAS Administration Alprazolam 0.25 mg 07/18/16 10:30 07/21/16 09:15 Xanax PO 07/25/16 10:31 0.25 mg Q12 ANDREAS Administration Anastrozole 1 mg 07/07/16 09:00 07/21/16 08:49 Arimidex 1 Mg Tab PO 1 mg DAILY ANDREAS Administration Enoxaparin Sodium 40 mg 07/16/16 13:15 07/21/16 08:51 Lovenox SC 40 mg DAILY ANDREAS Administration Protocol Famotidine 40 mg 07/22/16 09:00 Pepcid PO DAILY ANDREAS Furosemide 20 mg 07/18/16 10:30 07/21/16 08:50 Lasix IVP Not Given DAILY ANDREAS Gabapentin 600 mg 07/06/16 17:00 07/21/16 08:52 Neurontin PO 600 mg Q8 ANDREAS Administration Linezolid 300 mls @ 300 mls/hr 07/06/16 21:00 07/21/16 10:16 Zyvox 600mg/300ml D5w IVPB 300 mls/hr Q12 ANDREAS Administration Ceftazidime 1 gm/ Sodium 100 mls @ 200 mls/hr 07/13/16 01:00 07/21/16 08:46 Chloride IVPB 200 mls/hr Q8 ANDREAS Administration Methylprednisolone 30 mg/ 50 mls @ 100 mls/hr 07/22/16 09:00 Sodium Chloride IV DAILY ANDREAS Lactobacillus Acidophilus 1 cap 07/06/16 17:00 07/21/16 08:49 Bacid Acidophilus PO 1 cap BID ANDREAS Administration Loperamide HCl 2 mg 07/21/16 13:14 07/21/16 14:36 Imodium PO 2 mg QID PRN Administration Diarrhea Methimazole 5 mg 07/14/16 09:00 07/21/16 08:55 Tapazole PO 5 mg DAILY ANDREAS Administration Multi-Ingredient Cream 1 applic 07/06/16 17:00 07/21/16 08:50 Hydrocerin Cream TOP 1 applic BID ANDREAS Administration Nitroglycerin 1 in 07/06/16 16:00 07/21/16 10:28 Nitro-Bid 2% Oint TOP Not Given Q6 ANDREAS Quetiapine Fumarate 25 mg 07/21/16 13:30 07/21/16 14:37 Seroquel PO 25 mg Q8H ANDREAS Administration Spironolactone 25 mg 07/07/16 09:00 07/21/16 08:48 Aldactone PO 25 mg DAILY ANDREAS Administration Trimethoprim/Sulfamethoxazole 20 ml 07/17/16 21:00 07/21/16 08:53 Sulfatrim Pediatric Susp PO 20 ml Q12 ANDREAS Administration - Patient Studies Lab Studies: Lab Studies 07/21/16 07/21/16 Range/Units 04:59 04:35 WBC 5.5 (4.8-10.8) K/uL RBC 4.09 (3.80-5.20) Mil/uL Hgb 11.7 L (12.0-16.0) g/dL Hct 35.5 (34.0-47.0) % MCV 86.9 (81.0-99.0) fl MCH 28.5 (27.0-31.0) pg MCHC 32.8 L (33.0-37.0) g/dL RDW 23.1 H (11.5-14.5) % Plt Count 124 L (130-400) K/uL pCO2 57 H (35-45) mm/Hg pO2 108 H (80-100) mm/Hg HCO3 39.3 H (21-28) mmol/L ABG pH 7.50 H (7.35-7.45) ABG Total CO2 46.2 H (22-28) mmol/L ABG O2 Saturation 99.0 H (95-98) % ABG O2 Content 16.0 (15-23) ML/dL ABG Base Excess 18.5 H (-2.0-3.0) mmol/L ABG Hemoglobin 11.7 (11.7-17.4) g/dL ABG Carboxyhemoglobin 2.2 H (0.5-1.5) % POC ABG HHb (Measured) 1.0 (0.0-5.0) % ABG Methemoglobin 0.7 (0.0-3.0) % ABG O2 Capacity 16.2 (16-24) mL/dL Tawanda Test Yes A-a O2 Difference 106.0 mm/Hg Hgb O2 Saturation 96.1 (95.0-98.0) % Vent Mode Prvc/ac Mechanical Rate 12 FiO2 40.0 % Tidal Volume 400 PEEP 5 Sodium 138 (132-148) mmol/l Potassium 4.1 (3.6-5.0) MMOL/L Chloride 92 L (98-107) mmol/L Carbon Dioxide 38 H (22-30) mmol/L Anion Gap 12 (10-20) BUN 10 (7-17) mg/dl Creatinine 0.2 L (0.7-1.2) mg/dL Est GFR ( Amer) > 60 Est GFR (Non-Af Amer) > 60 Random Glucose 165 H (65-105) mg/dL Calcium 8.3 L (8.4-10.2) mg/dL Laboratory Results - last 24 hr 07/21/16 07/21/16 04:35 04:59 WBC 5.5 RBC 4.09 Hgb 11.7 L Hct 35.5 MCV 86.9 MCH 28.5 MCHC 32.8 L RDW 23.1 H Plt Count 124 L pCO2 57 H pO2 108 H HCO3 39.3 H ABG pH 7.50 H ABG Total CO2 46.2 H ABG O2 Saturation 99.0 H ABG O2 Content 16.0 ABG Base Excess 18.5 H ABG Hemoglobin 11.7 ABG Carboxyhemoglobin 2.2 H POC ABG HHb (Measured) 1.0 ABG Methemoglobin 0.7 ABG O2 Capacity 16.2 Tawanda Test Yes A-a O2 Difference 106.0 Hgb O2 Saturation 96.1 Vent Mode Prvc/ac Mechanical Rate 12 FiO2 40.0 Tidal Volume 400 PEEP 5 Sodium 138 Potassium 4.1 Chloride 92 L Carbon Dioxide 38 H Anion Gap 12 BUN 10 Creatinine 0.2 L Est GFR ( Amer) > 60 Est GFR (Non-Af Amer) > 60 Random Glucose 165 H Calcium 8.3 L Attending/Attestation - Attestation I have personally seen and examined this patient.: Yes I have fully participated in the care of the patient.: Yes I have reviewed all pertinent clinical information: Yes Notes (Text): 07/21/16 15:42 Patietn doing much better, does not need sedation, calm most of the time with out it. She is able to communicate with gestures and nodding. She stats being a little anxious and breaths deep, but has no respiratory distress as per her. Changed to PC 14/5/30% with very good tidal volumes, sitting in the chair. Need peg prior to discharge Will switch to cpap once off ventilator.
--- NOTE | 2016-07-21 16:35 | PN ---
DATE: 07/21/2016 LOCATION: ICU room 434 SUBJECTIVE: This is a 66-year-old female with recent overt hyperthyroidism and currently now on the low dose medical therapy which she is tolerating fairly well at this time and is being followed close ly for metabolic management. She is also undergoing close hemodynamic monitoring for recent congesti ve heart failure and acute exacerbation of COPD with hypoxemia and respiratory insufficiency. Her la test chemistries include a BUN of 10, sodium 138, potassium 4.1, chloride 92, CO2 of 38, glucose 165, and creatinine 0.2. The repeat thyroid study showed a T4 of 3.83 related to low albumin and protein store with a TSH of 1.06 which makes her actually biochemically euthyroid at this time. So for now, we will continue the same Tapazole given at a low dose of 5 mg once daily as ordered. We will titra te incrementally as indicated to optimize metabolic control. We will follow and advise accordingly. Polly Vu MD cc: [id number] TT: 07/21/2016 16:34:57 Confirmation # [id number] Dictation # [id number] tn
[2016-07-21] MEDS ORDERED: Metoprolol 1 mg/ml Inj IVP STA (18:30)
[2016-07-21] MEDS ORDERED: Metoprolol 1 mg/ml Inj IVP ONE ×2 (18:30→18:32)
[2016-07-21] MEDS: Verapamil 180 mg ER Tab PO SCH (19:00)
[2016-07-22] MEDS: Nitroglycerin 2% 1GM UD TOP SCH ×3 (04:40→16:26)
[2016-07-22 05:22] LABS: ABG ALLEN TEST YES; ABG MECHANICAL RATE 12; ARTERIAL BLOOD GAS HCO3 38.7 mmol/L (21-28); ARTERIAL BLOOD GAS MODE PRVC/AC; ARTERIAL BLOOD GAS O2 CONTENT 16.8 ML/dL (15-23); ARTERIAL BLOOD GAS PH 7.47 (7.35-7.45); ARTERIAL BLOOD GAS PO2 120 mm/Hg (80-100); ARTERIAL BLOOD HGB O2 SAT 96.1 % (95.0-98.0); ATERIAL BLOOD GAS PEEP 5; HHB 0.9 % (0.0-5.0)
[2016-07-22 05:51] LABS: HEMATOCRIT 38.2 % (34.0-47.0); MEAN CELL VOLUME 87.7 fl (81.0-99.0); MEAN CORPUSCULAR HEMOGLOBIN 27.9 pg (27.0-31.0); MEAN CORPUSCULAR HGB CONC 31.9 g/dL (33.0-37.0); WHITE BLOOD COUNT 8.5 K/uL (4.8-10.8)
[2016-07-22 06:02] LABS: CHLORIDE 96 mmol/L (98-107); SODIUM 139 mmol/l (132-148)
[2016-07-22 06:03] LABS: POTASSIUM 3.8 MMOL/L (3.6-5.0)
[2016-07-22 06:05] LABS: CARBON DIOXIDE 37 mmol/L (22-30); GFR AFRICAN-AMERICAN > 60
[2016-07-22 06:06] LABS: BLOOD UREA NITROGEN 11 mg/dl (7-17); CALCIUM 8.7 mg/dL (8.4-10.2); GLUCOSE,RANDOM 95 mg/dL (65-105)
[2016-07-22] MEDS ORDERED: Metoprolol 1 mg/ml Inj IVP ONE ×2 (08:14→08:15)
[2016-07-22] MEDS: Linezolid 600 mg in D5W 300 ml 300 ML IVPB SCH ×2 (08:30→21:23)
[2016-07-22] MEDS: methylPREDNISolone 30 MG in Sodium Chloride 0.9% 50 ML IV SCH (08:30)
[2016-07-22] MEDS: Verapamil 180 mg ER Tab PO SCH (08:35)
[2016-07-22] MEDS: Enoxaparin 40 mg Syringe SC SCH (08:36)
[2016-07-22] MEDS: Famotidine 40 MG/5 ML PO SCH (08:37)
[2016-07-22] MEDS: Albuterol-Ipratrop 3 mg / 0.5 (3 ml) UD INH SCH ×4 (08:37→19:32)
[2016-07-22] MEDS: methIMAzole 5 MG TAB PO SCH (08:38)
[2016-07-22] MEDS: Tmp-Smz 200-40mg/5 ml Oral Sus(120 ml) PO SCH ×2 (08:38→21:23)
[2016-07-22] MEDS: Lactobacillus Acidophilus 500 MU Cap PO SCH ×2 (08:41→16:28)
[2016-07-22] MEDS: Hydrocerin CREAM TOP SCH ×2 (08:43→16:26)
--- NOTE | 2016-07-22 08:45 | CP.CCUPN ---
<StevenchelleHeladio byrne T - Last Filed: 07/22/16 12:12> CCU Subjective - Physician Review Subjective (Free Text): Pt is seen and examined at bedside in the ICU. Pt on ventilator via tracheotomy , though she was placed on trach collar for 2-3 hrs in attempt to wean off / evaluate ventilator. She c/o dyspnea towards the tail end of the collar trial. Denies any acute events or problems. CCU Objective - Vital Signs / Intake & Output Vital Signs (Last 4 hours): Vital Signs Temp Pulse Resp BP Pulse Ox 07/22/16 08:41 106 H 120/80 07/22/16 08:35 104 H 120/80 07/22/16 08:21 130 H 120/80 07/22/16 08:00 97.6 F 104 H 20 120/80 98 Intake and Output (Last 8hrs): Intake & Output 07/21/16 07/22/16 07/22/16 22:59 06:59 14:59 Intake Total 1076 386 Output Total 1410 500 Balance -334 -114 Intake: IV 6 16 Intake, Piggyback 400 Tube Feeding 320 320 Free Water Flush 350 50 Output: Gastric Amount 10 Stomach 10 Urine 1400 500 Urethral (Gutierrez) 1400 500 Other: # Bowel Movements 1 1 - Physical Exam Head: Positive for: Atraumatic, Swelling (R mandible, improving). Negative for : Ecchymosis Pupils: Positive for: PERRL. Negative for: Sluggish, Non-Reactive Extroacular Muscles: Positive for: EOMI. Negative for: Gaze Palsy, Entrapment Conjunctiva: Positive for: Normal Mouth: Positive for: Dry Neck: Positive for: Trachea Midline, Other (tracheotomy, clean). Negative for: MIDLINE TENDERNESS, Paraspinal Tenderness, JVD, Lymphadenopathy, Bruit Respiratory/Chest: Positive for: Good Air Exchange, Decreased Breath Sounds, Rhonchi (minimal, posteriorly). Negative for: Respiratory Distress, Accessory Muscle Use, Wheezes Cardiovascular: Positive for: Normal S1, S2, Peripheal Pulses Present, Tachycardic. Negative for: Murmurs, Irregular Rhythm Abdomen: Positive for: Normal Bowel Sounds. Negative for: Tenderness, Distention Upper Extremity: Positive for: NORMAL PULSES, Capillary Refill < 2s, Other (L arm presents w/o edema, normal pulses; Rt arm edema). Negative for: Cyanosis, Tenderness Lower Extremity: Positive for: Edema, NORMAL PULSES. Negative for: CALF TENDERNESS Neurological: Positive for: GCS=15, Other (tracheotomy) Skin: Positive for: Warm, Dry, Normal Color Psychiatric: Positive for: Alert, Oriented x 3 - Medications Active Medications: Active Medications Generic Name Dose Route Start Last Admin Trade Name Freq PRN Reason Stop Dose Admin Albuterol/Ipratropium 3 ml 07/19/16 12:00 07/22/16 08:37 Duoneb 3 Mg/0.5 Mg (3 Ml) Ud INH 3 ml RQID ANDREAS Administration Alprazolam 0.5 mg 07/21/16 17:45 07/22/16 08:41 Xanax PO 0.5 mg Q8 ANDREAS Administration Anastrozole 1 mg 07/07/16 09:00 07/22/16 08:35 Arimidex 1 Mg Tab PO 1 mg DAILY ANDREAS Administration Enoxaparin Sodium 40 mg 07/16/16 13:15 07/22/16 08:36 Lovenox SC 40 mg DAILY ANDREAS Administration Protocol Famotidine 40 mg 07/22/16 09:00 07/22/16 08:37 Pepcid PO 40 mg DAILY ANDREAS Administration Furosemide 20 mg 07/18/16 10:30 07/21/16 08:50 Lasix IVP Not Given DAILY ANDREAS Gabapentin 600 mg 07/06/16 17:00 07/22/16 08:37 Neurontin PO 600 mg Q8 ANDREAS Administration Haloperidol Lactate 5 mg 07/21/16 17:45 07/21/16 17:39 Haldol IVP 5 mg ONCE ANDREAS Administration Haloperidol Lactate 5 mg 07/22/16 08:15 07/22/16 08:25 Haldol IVP 5 mg ONCE ANDRAES Administration Linezolid 300 mls @ 300 mls/hr 07/06/16 21:00 07/22/16 08:30 Zyvox 600mg/300ml D5w IVPB 300 mls/hr Q12 ANDREAS Administration Ceftazidime 1 gm/ Sodium 100 mls @ 200 mls/hr 07/13/16 01:00 07/22/16 08:28 Chloride IVPB 200 mls/hr Q8 ANDREAS Administration Methylprednisolone 30 mg/ 50 mls @ 100 mls/hr 07/22/16 09:00 07/22/16 08:30 Sodium Chloride IV 100 mls/hr DAILY ANDREAS Administration Lactobacillus Acidophilus 1 cap 07/06/16 17:00 07/22/16 08:41 Bacid Acidophilus PO 1 cap BID ANDREAS Administration Loperamide HCl 2 mg 07/21/16 13:14 07/22/16 08:35 Imodium PO 2 mg QID PRN Administration Diarrhea Methimazole 5 mg 07/14/16 09:00 07/22/16 08:38 Tapazole PO 5 mg DAILY ANDREAS Administration Metoprolol Tartrate 12.5 mg 07/22/16 09:00 07/22/16 08:41 Lopressor PO 12.5 mg Q12 ANDERAS Administration Multi-Ingredient Cream 1 applic 07/06/16 17:00 07/21/16 16:36 Hydrocerin Cream TOP 1 applic BID ANDREAS Administration Nitroglycerin 1 in 07/06/16 16:00 07/22/16 04:40 Nitro-Bid 2% Oint TOP Not Given Q6 ANDREAS Quetiapine Fumarate 12.5 mg 07/21/16 18:33 07/22/16 02:57 Seroquel PO 12.5 mg Q8H ANDREAS Administration Spironolactone 25 mg 07/07/16 09:00 07/22/16 08:34 Aldactone PO 25 mg DAILY ANDREAS Administration Trimethoprim/Sulfamethoxazole 20 ml 07/17/16 21:00 07/22/16 08:38 Sulfatrim Pediatric Susp PO 20 ml Q12 ANDREAS Administration Verapamil HCl 180 mg 07/21/16 18:00 07/22/16 08:35 Calan Sr Tab PO 180 mg DAILY ANDREAS Administration - Patient Studies Lab Studies: Lab Studies 07/22/16 07/22/16 Range/Units 05:15 05:09 WBC 8.5 D (4.8-10.8) K/uL RBC 4.36 (3.80-5.20) Mil/uL Hgb 12.2 (12.0-16.0) g/dL Hct 38.2 (34.0-47.0) % MCV 87.7 (81.0-99.0) fl MCH 27.9 (27.0-31.0) pg MCHC 31.9 L (33.0-37.0) g/dL RDW 24.0 H (11.5-14.5) % Plt Count 130 (130-400) K/uL pCO2 61 H (35-45) mm/Hg pO2 120 H (80-100) mm/Hg HCO3 38.7 H (21-28) mmol/L ABG pH 7.47 H (7.35-7.45) ABG Total CO2 46.3 H (22-28) mmol/L ABG O2 Saturation 99.1 H (95-98) % ABG O2 Content 16.8 (15-23) ML/dL ABG Base Excess 17.7 H (-2.0-3.0) mmol/L ABG Hemoglobin 12.3 (11.7-17.4) g/dL ABG Carboxyhemoglobin 2.0 H (0.5-1.5) % POC ABG HHb (Measured) 0.9 (0.0-5.0) % ABG Methemoglobin 1.0 (0.0-3.0) % ABG O2 Capacity 17.0 (16-24) mL/dL Tawanda Test Yes A-a O2 Difference 89.0 mm/Hg Hgb O2 Saturation 96.1 (95.0-98.0) % Vent Mode Prvc/ac Mechanical Rate 12 FiO2 40.0 % Tidal Volume 400 PEEP 5 Sodium 139 (132-148) mmol/l Potassium 3.8 (3.6-5.0) MMOL/L Chloride 96 L (98-107) mmol/L Carbon Dioxide 37 H (22-30) mmol/L Anion Gap 10 (10-20) BUN 11 (7-17) mg/dl Creatinine 0.3 L (0.7-1.2) mg/dL Est GFR ( Amer) > 60 Est GFR (Non-Af Amer) > 60 Random Glucose 95 (65-105) mg/dL Calcium 8.7 (8.4-10.2) mg/dL Laboratory Results - last 24 hr 07/22/16 07/22/16 05:09 05:15 WBC 8.5 D RBC 4.36 Hgb 12.2 Hct 38.2 MCV 87.7 MCH 27.9 MCHC 31.9 L RDW 24.0 H Plt Count 130 pCO2 61 H pO2 120 H HCO3 38.7 H ABG pH 7.47 H ABG Total CO2 46.3 H ABG O2 Saturation 99.1 H ABG O2 Content 16.8 ABG Base Excess 17.7 H ABG Hemoglobin 12.3 ABG Carboxyhemoglobin 2.0 H POC ABG HHb (Measured) 0.9 ABG Methemoglobin 1.0 ABG O2 Capacity 17.0 Tawanda Test Yes A-a O2 Difference 89.0 Hgb O2 Saturation 96.1 Vent Mode Prvc/ac Mechanical Rate 12 FiO2 40.0 Tidal Volume 400 PEEP 5 Sodium 139 Potassium 3.8 Chloride 96 L Carbon Dioxide 37 H Anion Gap 10 BUN 11 Creatinine 0.3 L Est GFR ( Amer) > 60 Est GFR (Non-Af Amer) > 60 Random Glucose 95 Calcium 8.7 Review of Systems - Review of Systems Review of Systems: see HPI Assessment/Plan - Assessment and Plan (Free Text) Plan: 66 yo F w PMHx of HTN, COPD, bilateral Breast cancer, h/o Hyperthyroidism is admitted to ICU for sob/dyspnea w/in setting of copd exacerbation 1) Acute on chronic respiratory failure with hypercapnea; setting of COPD -Tracheotomy performed few days previously due to continued respiratory distress -Pt was placed O2 trach color at 40% in attempt to wean off / evaluate off ventilator --tolerated it for 2-3 hrs until BPs began to decrease and she had to be placed back on the ventilator -previous bronchial washings grew Stenotrophomonas Maltophilia, ID onboard -Linezolid 600mg IVPB Q12H -Bactrim 435mg IVPB Q12H -Fortaz 1g IVPB Q8H -Spironolactone 25mg PO Daily -Methylprednisolone 30mg IV Daily -Duoneb 3mL RQ4H PRN -f/u ABGs -f/u respiratory function 2) Anxiety -?anxiety associated w attempts to alter respiratory management, will consider Psychiatry -Xanax 0.25mg PO Q12H PRN -Seroquel 25mg PO Q8H -Haldol 5mg ONCE -f/u Psychiatry Consult 3) Acute exacerbation of Systolic CHF -Echo (06/14): LVEF 40-45 %; Dilated RV with mild/mod decrease RV function, diastolic inflow pattern is restrictive -Spironolactone 25mg PO Daily -f/u strict I&Os -f/u Daily Wt 4) Tachycardia -Verapamil 180mg PO Daily -Metoprolol 12.5mg PO Q12H -f/u Vitals 5) VRE (vancomycin resistant enterococcus) culture positive -mandible osteomyelitis wound Cx+ resulted: VRE -Linezolid 600mg IVPB Q12H -f/u OMFS regarding presence/course of drains 6) Chronic Pain -Had experienced intermittent pain near R shoulder, R upper chest, R anterior aspect of neck -Not correlated to any known factor -Presently asymptomatic 7) Hyperthyroidism -Methimazole 5mg PO BID 8) Anemia -Resolving -h/h currently 12.2/38.3 9) DVT Prophylaxis -Lovenox 40mg SC Daily 10) PUD Prophylaxis -Pepcid 40mg PO Daily <Landy Sunshine - Last Filed: 07/22/16 14:17> CCU Objective - Vital Signs / Intake & Output Vital Signs (Last 4 hours): Vital Signs Temp Pulse Resp BP Pulse Ox 07/22/16 13:15 95 H 26 H 106/60 94 L 07/22/16 12:00 96.4 F L 76 20 69/40 L 93 L Intake and Output (Last 8hrs): Intake & Output 07/21/16 07/22/16 07/22/16 22:59 06:59 14:59 Intake Total 5002 298 2642 Output Total 1410 500 300 Balance -334 -114 1500 Intake: IV 6 16 1000 Intake, Piggyback 400 450 Tube Feeding 320 320 200 Free Water Flush 350 50 150 Output: Gastric Amount 10 Stomach 10 Urine 1400 500 300 Urethral (Gutierrez) 1400 500 300 Other: # Bowel Movements 1 1 1 - Medications Active Medications: Active Medications Generic Name Dose Route Start Last Admin Trade Name Freq PRN Reason Stop Dose Admin Albuterol/Ipratropium 3 ml 07/19/16 12:00 07/22/16 12:05 Duoneb 3 Mg/0.5 Mg (3 Ml) Ud INH Not Given RQID ANDREAS Alprazolam 0.5 mg 07/21/16 17:45 07/22/16 08:41 Xanax PO 0.5 mg Q8 ANDREAS Administration Anastrozole 1 mg 07/07/16 09:00 07/22/16 08:35 Arimidex 1 Mg Tab PO 1 mg DAILY ANDREAS Administration Enoxaparin Sodium 40 mg 07/16/16 13:15 07/22/16 08:36 Lovenox SC 40 mg DAILY ANDREAS Administration Protocol Famotidine 40 mg 07/22/16 09:00 07/22/16 08:37 Pepcid PO 40 mg DAILY ANDREAS Administration Furosemide 20 mg 07/18/16 10:30 07/21/16 08:50 Lasix IVP Not Given DAILY ANDREAS Gabapentin 600 mg 07/06/16 17:00 07/22/16 08:37 Neurontin PO 600 mg Q8 ANDREAS Administration Haloperidol Lactate 5 mg 07/21/16 17:45 07/21/16 17:39 Haldol IVP 5 mg ONCE ANDREAS Administration Haloperidol Lactate 5 mg 07/22/16 08:15 07/22/16 08:25 Haldol IVP 5 mg ONCE ANDREAS Administration Linezolid 300 mls @ 300 mls/hr 07/06/16 21:00 07/22/16 08:30 Zyvox 600mg/300ml D5w IVPB 300 mls/hr Q12 ANDREAS Administration Ceftazidime 1 gm/ Sodium 100 mls @ 200 mls/hr 07/13/16 01:00 07/22/16 08:28 Chloride IVPB 200 mls/hr Q8 ANRDEAS Administration Methylprednisolone 30 mg/ 50 mls @ 100 mls/hr 07/22/16 09:00 07/22/16 08:30 Sodium Chloride IV 100 mls/hr DAILY ANDREAS Administration Phenylephrine HCl 20 mg/ 252 mls @ 30.24 mls/hr 07/22/16 12:30 Sodium Chloride IV .Q8H20M ANDREAS Protocol 40 MCG/MIN Lactobacillus Acidophilus 1 cap 07/06/16 17:00 07/22/16 08:41 Bacid Acidophilus PO 1 cap BID ANDREAS Administration Loperamide HCl 2 mg 07/21/16 13:14 07/22/16 08:35 Imodium PO 2 mg QID PRN Administration Diarrhea Methimazole 5 mg 07/14/16 09:00 07/22/16 08:38 Tapazole PO 5 mg DAILY ANDREAS Administration Metoprolol Tartrate 12.5 mg 07/22/16 09:00 07/22/16 08:41 Lopressor PO 12.5 mg Q12 ANDREAS Administration Multi-Ingredient Cream 1 applic 07/06/16 17:00 07/22/16 08:43 Hydrocerin Cream TOP 1 applic BID ANDREAS Administration Nitroglycerin 1 in 07/06/16 16:00 07/22/16 09:00 Nitro-Bid 2% Oint TOP 1 in Q6 ANDREAS Administration Spironolactone 25 mg 07/07/16 09:00 07/22/16 08:34 Aldactone PO 25 mg DAILY ANDREAS Administration Trimethoprim/Sulfamethoxazole 20 ml 07/17/16 21:00 07/22/16 08:38 Sulfatrim Pediatric Susp PO 20 ml Q12 ANDREAS Administration Verapamil HCl 180 mg 07/21/16 18:00 07/22/16 08:35 Calan Sr Tab PO 180 mg DAILY ANDREAS Administration - Patient Studies Lab Studies: Lab Studies 07/22/16 07/22/16 Range/Units 05:15 05:09 WBC 8.5 D (4.8-10.8) K/uL RBC 4.36 (3.80-5.20) Mil/uL Hgb 12.2 (12.0-16.0) g/dL Hct 38.2 (34.0-47.0) % MCV 87.7 (81.0-99.0) fl MCH 27.9 (27.0-31.0) pg MCHC 31.9 L (33.0-37.0) g/dL RDW 24.0 H (11.5-14.5) % Plt Count 130 (130-400) K/uL pCO2 61 H (35-45) mm/Hg pO2 120 H (80-100) mm/Hg HCO3 38.7 H (21-28) mmol/L ABG pH 7.47 H (7.35-7.45) ABG Total CO2 46.3 H (22-28) mmol/L ABG O2 Saturation 99.1 H (95-98) % ABG O2 Content 16.8 (15-23) ML/dL ABG Base Excess 17.7 H (-2.0-3.0) mmol/L ABG Hemoglobin 12.3 (11.7-17.4) g/dL ABG Carboxyhemoglobin 2.0 H (0.5-1.5) % POC ABG HHb (Measured) 0.9 (0.0-5.0) % ABG Methemoglobin 1.0 (0.0-3.0) % ABG O2 Capacity 17.0 (16-24) mL/dL Tawanda Test Yes A-a O2 Difference 89.0 mm/Hg Hgb O2 Saturation 96.1 (95.0-98.0) % Vent Mode Prvc/ac Mechanical Rate 12 FiO2 40.0 % Tidal Volume 400 PEEP 5 Sodium 139 (132-148) mmol/l Potassium 3.8 (3.6-5.0) MMOL/L Chloride 96 L (98-107) mmol/L Carbon Dioxide 37 H (22-30) mmol/L Anion Gap 10 (10-20) BUN 11 (7-17) mg/dl Creatinine 0.3 L (0.7-1.2) mg/dL Est GFR ( Amer) > 60 Est GFR (Non-Af Amer) > 60 Random Glucose 95 (65-105) mg/dL Calcium 8.7 (8.4-10.2) mg/dL Laboratory Results - last 24 hr 07/22/16 07/22/16 05:09 05:15 WBC 8.5 D RBC 4.36 Hgb 12.2 Hct 38.2 MCV 87.7 MCH 27.9 MCHC 31.9 L RDW 24.0 H Plt Count 130 pCO2 61 H pO2 120 H HCO3 38.7 H ABG pH 7.47 H ABG Total CO2 46.3 H ABG O2 Saturation 99.1 H ABG O2 Content 16.8 ABG Base Excess 17.7 H ABG Hemoglobin 12.3 ABG Carboxyhemoglobin 2.0 H POC ABG HHb (Measured) 0.9 ABG Methemoglobin 1.0 ABG O2 Capacity 17.0 Tawanda Test Yes A-a O2 Difference 89.0 Hgb O2 Saturation 96.1 Vent Mode Prvc/ac Mechanical Rate 12 FiO2 40.0 Tidal Volume 400 PEEP 5 Sodium 139 Potassium 3.8 Chloride 96 L Carbon Dioxide 37 H Anion Gap 10 BUN 11 Creatinine 0.3 L Est GFR ( Amer) > 60 Est GFR (Non-Af Amer) > 60 Random Glucose 95 Calcium 8.7 Attending/Attestation - Attestation I have personally seen and examined this patient.: Yes I have fully participated in the care of the patient.: Yes I have reviewed all pertinent clinical information: Yes Notes (Text): 07/22/16 14:17 07/22/16 14:02 Patient seen and examined in the morning. HR not controlled despite verapamil 160 mg daily. Noted that yesterday she slow her rate on metoprolol IV, but no cardizem IV. So started on metoprolol 12.5 mg q12h. Tolerates trach collar, but needs lots of reassuring since she gets very anxious and wants to go back on the ventilator right away, gave 5 mg of haldol in an attempt to relax her, but she very sedated. A few mn ago she went hypotensive, possibly a combination of sedative and b- katie. change to metoprolol 2.5 q6h prn hr above 100 mmhg
--- NOTE | 2016-07-22 10:05 | CP.PCM.PN ---
Subjective - Date & Time of Evaluation Date of Evaluation: 07/22/16 Time of Evaluation: 09:45 - Subjective Subjective: Hospitalist Progress Note (Patient was seen at 9:45 AM 07/22/16 ICU Bed 434-1) 66 year old female who was admitted on 06/04/16 for treatment of CHF Exacerbation , Acute on Chronic Respiratory Failure with Hypercapnia, COPD Exacerbation, Hyponatremia, and Right Mandibular Abscess. She has been intubated and extubated multiple times since her admission and is S/P Tracheostomy and currently on Trach. Review of systems is not possible secondary to patient just receiving Haldol. HEENT: NCA, Pupils are round and reactive to light, Oral Mucosa and Nasal Turbinates are dry, NO thyromegaly, NO cervical lymphadenopathy Cardio: NS1 and NS2, NO M/R/G Respirtory: Course breath sounds diffusely, Scattered End expiratory wheezing GI: BSx4, Soft, ND, NO HSM Ext: Right Arm Chronic Non Pitting Edema, NO edema in any of the other extremities, Capillary Refill is 2 seconds, Bilateral UE pulses are stronger than Bilateral LE pulses Skin: multiple bruises on upper chest and anterior shoulders Assessment and Plan: 1). Acute on Chronic Respiratory Failure with Hypercapnia S/P Tracheostomy on Trach 2). Right Mandible Abscess S/P Drainage Osteomyelitis? Ceftazidime 1 gm IV Q8H 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 Thomas Heller is following and Hospitalist Dr. Camilo spoke with him 07/21/16 and patient is to be continued on the above antibiotics for now (she has completed 6 weeks of antibiotics) 3). Hx Hyperthyroidism Methimazole 5 mg NGT 1x/day 4). Hx Acute Exacerbation of COPD Duoneb Q6H Methylprednisolone 30 mg IV 1x/day 5). Hx Acute Exacerbation of CHF Lasix 20 mg IV 1x/day Metoprolol 12.5 mg PO Q12H (started 07/22/16 as Heart Rate elevated and episodes of SVT on 07/21/16) Verapamil 180 mg NGT 1x/day Spironolactone 25 m NGT 1x/day 6). Hx HTN Lasix, Metoprolol, Verapamil, Spironolactone as above 7). Hx Breast CA with Metastastis to Bone Arimidex 1 mg PO 1x/day 8). Hx Hyponatremia Resolved Monitor BMP 9). Hx Hypokalemia Resolved Monitor BMP On Spiranolactone and Lasix 10). Prophylactic Measures Xanax 0.5 mg NGT Q8H Lovenox 40 gm SQ 1x/day Pepcid 40 mg NGT 1x/day Lactobicillus 1 cap NGT BID Haldol 5 mg IV 1x/day PRN Gabapentine 600 mg NGT Q8H Seroquel 12.5 mg NGT Q8H Loperamide 2 mg NGT 4x/day PRN Diarrhea Jevity 1.2 40 mL per hour GI Dr. Villalta has been consulted for possible PEG Tube Placement Vp Patient working on [facility] Bashir D.O. Objective - Vital Signs/Intake and Output Vital Signs (last 24 hours): Temp Pulse Resp BP Pulse Ox 97.6 F 106 H 20 120/80 98 07/22/16 08:00 07/22/16 08:41 07/22/16 08:00 07/22/16 08:41 07/22/16 08:00 Intake and Output: 07/22/16 07/22/16 06:59 18:59 Intake Total 1052 Output Total 1010 Balance 42 - Medications Medications: Current Medications Albuterol/Ipratropium (Duoneb 3 Mg/0.5 Mg (3 Ml) Ud) 3 ml INH RQID [facility] Last Admin: 07/22/16 08:37 Dose: 3 ml Alprazolam (Xanax) 0.5 mg PO Q8 ANDREAS Last Admin: 07/22/16 08:41 Dose: 0.5 mg Anastrozole (Arimidex 1 Mg Tab) 1 mg PO DAILY [facility] Last Admin: 07/22/16 08:35 Dose: 1 mg Enoxaparin Sodium (Lovenox) 40 mg SC DAILY [facility] PRN Reason: Protocol Last Admin: 07/22/16 08:36 Dose: 40 mg Famotidine (Pepcid) 40 mg PO DAILY [facility] Last Admin: 07/22/16 08:37 Dose: 40 mg Furosemide (Lasix) 20 mg IVP DAILY [facility] Last Admin: 07/21/16 08:50 Dose: Not Given Gabapentin (Neurontin) 600 mg PO Q8 [facility] Last Admin: 07/22/16 08:37 Dose: 600 mg Haloperidol Lactate (Haldol) 5 mg IVP ONCE [facility] Last Admin: 07/21/16 17:39 Dose: 5 mg Haloperidol Lactate (Haldol) 5 mg IVP ONCE [facility] Last Admin: 07/22/16 08:25 Dose: 5 mg Linezolid (Zyvox 600mg/300ml D5w) 300 mls @ 300 mls/hr IVPB Q12 [facility] Last Admin: 07/22/16 08:30 Dose: 300 mls/hr Ceftazidime 1 gm/ Sodium (Chloride) 100 mls @ 200 mls/hr IVPB Q8 [facility] Last Admin: 07/22/16 08:28 Dose: 200 mls/hr Methylprednisolone 30 mg/ (Sodium Chloride) 50 mls @ 100 mls/hr IV DAILY [facility] Last Admin: 07/22/16 08:30 Dose: 100 mls/hr Lactobacillus Acidophilus (Bacid Acidophilus) 1 cap PO BID [facility] Last Admin: 07/22/16 08:41 Dose: 1 cap Loperamide HCl (Imodium) 2 mg PO QID PRN PRN Reason: Diarrhea Last Admin: 07/22/16 08:35 Dose: 2 mg Methimazole (Tapazole) 5 mg PO DAILY [facility] Last Admin: 07/22/16 08:38 Dose: 5 mg Metoprolol Tartrate (Lopressor) 12.5 mg PO Q12 [facility] Last Admin: 07/22/16 08:41 Dose: 12.5 mg Multi-Ingredient Cream (Hydrocerin Cream) 1 applic TOP BID [facility] Last Admin: 07/22/16 08:43 Dose: 1 applic Nitroglycerin (Nitro-Bid 2% Oint) 1 in TOP Q6 [facility] Last Admin: 07/22/16 09:00 Dose: 1 in Quetiapine Fumarate (Seroquel) 12.5 mg PO Q8H [facility] Last Admin: 07/22/16 09:34 Dose: 12.5 mg Spironolactone (Aldactone) 25 mg PO DAILY [facility] Last Admin: 07/22/16 08:34 Dose: 25 mg Trimethoprim/Sulfamethoxazole (Sulfatrim Pediatric Susp) 20 ml PO Q12 [facility] Last Admin: 07/22/16 08:38 Dose: 20 ml Verapamil HCl (Calan Sr Tab) 180 mg PO DAILY ANDREAS Last Admin: 07/22/16 08:35 Dose: 180 mg - Labs Labs: 07/22/16 05:15 07/22/16 05:15 PT 12.0 SECONDS (9.6-11.2) H 07/19/16 04:20 INR 1.15 (0.92-1.08) H 07/19/16 04:20 APTT 27.7 SECONDS (23.3-32.5) 07/09/16 08:00
--- NOTE | 2016-07-22 10:19 | CP.PCM.PN ---
Subjective - Date & Time of Evaluation Date of Evaluation: 07/22/16 Time of Evaluation: 10:15 - Subjective Subjective: Seen on morning rounds in the intensive care unit. Patient has tracheostomy and is presently on oxygen via trach collar. Mildly tachycardic at 104 bpm. Awake and mildly sedated. Mild dyspnea appears to be present although the patient's oxygenation is 100%. The tracheostomy stoma appears clean and dry. Small amounts of residual blood-tinged secretions are suctioned from the tracheostomy. No dullness to percussion of the anterior thorax. No palpable subcutaneous emphysema. Small scattered ecchymoses are noted over the anterior chest wall. Breath sounds are present bilaterally, diminished, few expiratory wheezes are heard bilaterally, more right than left. Few sonorous rhonchi are appreciated and dependent areas posteriorly. Few medium rales are present posteriorly in the lower lobes. Heart sounds are markedly distant and rhythm is regular. Case was discussed with the data processing systems project planner while on rounds. Today's chest x-ray was reviewed. Lab data have been reviewed as well. Patient will remain under close observation while on trach collar. Sedation/anxiolytics have been prescribed. GI consultation for PEG tube placement. Patient will require LTAC for long-term weaning process. Physical therapy as tolerated. Will discuss with Infectious Disease regarding length of antibiotic therapy. Objective - Vital Signs/Intake and Output Vital Signs (last 24 hours): Temp Pulse Resp BP Pulse Ox 97.6 F 106 H 20 120/80 98 07/22/16 08:00 07/22/16 08:41 07/22/16 08:00 07/22/16 08:41 07/22/16 08:00 Intake and Output: 07/21/16 07/22/16 23:59 11:59 Intake Total 1646 386 Output Total 1420 500 Balance 226 -114 - Medications Medications: Current Medications Albuterol/Ipratropium (Duoneb 3 Mg/0.5 Mg (3 Ml) Ud) 3 ml INH RQID [facility] Last Admin: 07/22/16 08:37 Dose: 3 ml Alprazolam (Xanax) 0.5 mg PO Q8 [facility] Last Admin: 07/22/16 08:41 Dose: 0.5 mg Anastrozole (Arimidex 1 Mg Tab) 1 mg PO DAILY [facility] Last Admin: 07/22/16 08:35 Dose: 1 mg Enoxaparin Sodium (Lovenox) 40 mg SC DAILY [facility] PRN Reason: Protocol Last Admin: 07/22/16 08:36 Dose: 40 mg Famotidine (Pepcid) 40 mg PO DAILY [facility] Last Admin: 07/22/16 08:37 Dose: 40 mg Furosemide (Lasix) 20 mg IVP DAILY [facility] Last Admin: 07/21/16 08:50 Dose: Not Given Gabapentin (Neurontin) 600 mg PO Q8 [facility] Last Admin: 07/22/16 08:37 Dose: 600 mg Haloperidol Lactate (Haldol) 5 mg IVP ONCE [facility] Last Admin: 07/21/16 17:39 Dose: 5 mg Haloperidol Lactate (Haldol) 5 mg IVP ONCE [facility] Last Admin: 07/22/16 08:25 Dose: 5 mg Linezolid (Zyvox 600mg/300ml D5w) 300 mls @ 300 mls/hr IVPB Q12 [facility] Last Admin: 07/22/16 08:30 Dose: 300 mls/hr Ceftazidime 1 gm/ Sodium (Chloride) 100 mls @ 200 mls/hr IVPB Q8 [facility] Last Admin: 07/22/16 08:28 Dose: 200 mls/hr Methylprednisolone 30 mg/ (Sodium Chloride) 50 mls @ 100 mls/hr IV DAILY [facility] Last Admin: 07/22/16 08:30 Dose: 100 mls/hr Lactobacillus Acidophilus (Bacid Acidophilus) 1 cap PO BID [facility] Last Admin: 07/22/16 08:41 Dose: 1 cap Loperamide HCl (Imodium) 2 mg PO QID PRN PRN Reason: Diarrhea Last Admin: 07/22/16 08:35 Dose: 2 mg Methimazole (Tapazole) 5 mg PO DAILY [facility] Last Admin: 07/22/16 08:38 Dose: 5 mg Metoprolol Tartrate (Lopressor) 12.5 mg PO Q12 [facility] Last Admin: 07/22/16 08:41 Dose: 12.5 mg Multi-Ingredient Cream (Hydrocerin Cream) 1 applic TOP BID [facility] Last Admin: 07/22/16 08:43 Dose: 1 applic Nitroglycerin (Nitro-Bid 2% Oint) 1 in TOP Q6 [facility] Last Admin: 07/22/16 09:00 Dose: 1 in Quetiapine Fumarate (Seroquel) 12.5 mg PO Q8H [facility] Last Admin: 07/22/16 09:34 Dose: 12.5 mg Spironolactone (Aldactone) 25 mg PO DAILY [facility] Last Admin: 07/22/16 08:34 Dose: 25 mg Trimethoprim/Sulfamethoxazole (Sulfatrim Pediatric Susp) 20 ml PO Q12 [facility] Last Admin: 07/22/16 08:38 Dose: 20 ml Verapamil HCl (Calan Sr Tab) 180 mg PO DAILY [facility] Last Admin: 07/22/16 08:35 Dose: 180 mg - Labs Labs: 07/22/16 05:15 07/22/16 05:15 PT 12.0 SECONDS (9.6-11.2) H 07/19/16 04:20 INR 1.15 (0.92-1.08) H 07/19/16 04:20 APTT 27.7 SECONDS (23.3-32.5) 07/09/16 08:00 Assessment and Plan (1) Acute bronchitis with chronic obstructive pulmonary disease (COPD) Status: Acute (2) Hyperthyroidism Status: Chronic (3) Abscess Status: Acute (4) Hypokalemia Status: Acute
[2016-07-22] MEDS ORDERED: EPINEPHrine 1 mg/ml (1:1000) Inj IV ONE (12:30)
[2016-07-22] MEDS ORDERED: Lidocaine 1% Inj (20ml) ONE (12:37)
[2016-07-22] MEDS ORDERED: Lidocaine 1% Inj (20ml) SC ONE (12:41)
--- NOTE | 2016-07-22 13:03 | RAD ---
PROCEDURE: CHEST RADIOGRAPH, 1 VIEW HISTORY: follow up COMPARISON: 07/21/2016 FINDINGS: LUNGS: Pulmonary hyperinflation. Vague opacity at right lung base. Unchanged. Left perihilar opacity is not evident. PLEURA: Probable small bilateral pleural effusion. CARDIOVASCULAR: Tracheostomy tube, nasogastric tube and right central venous infusion port unchanged. OSSEOUS STRUCTURES: Apparent resection proximal right humerus. VISUALIZED UPPER ABDOMEN: Normal. OTHER FINDINGS: None. IMPRESSION: Persistent vague opacity at right base. Probable small bilateral pleural effusion. Left perihilar opacity resolved. Lines and tubes unchanged.
--- NOTE | 2016-07-22 17:40 | PN ---
DATE: 07/22/2016 ROOM 434 ICU. This is a 66-year-old female with recent overt hyperthyroidism, now being followed closely for metabo lic management. She has recently been tapered down on her medical therapy with Tapazole given as ord ered. She remains clinically and biochemically euthyroid at this time, however, her oral intake is q uite low, with suboptimal meal portions and supervening marked hypoalbuminemia, and undernutrition as noted. Her latest chemistries showed a BUN of 11, sodium 139, potassium 3.8, chloride 96, CO2 of 37, glucose 95, and creatinine 0.03. So at this time, will continue the same low dose medical therapy with Tapazole given as 5 mg once jozef ly in the morning as ordered. Will titrate incrementally as indicated to optimize metabolic control. Will follow and advise accordingly. Polly Vu MD cc: [id number] TT: 07/22/2016 17:39:59 Confirmation # [id number] Dictation # [id number]
--- NOTE | 2016-07-22 23:44 | CP.PCM.CON ---
History of Present Illness - History of Present Illness History of Present Illness: 66 yo female currently ventilator dependent referred for PEG. it appears that weaning patient off ventilator may take awhile. Review of Systems - Review of Systems Systems not reviewed;Unavailable: Altered Mental Status Past Patient History - Infectious Disease Hx of Infectious Diseases: MRSA - Tetanus Immunizations Tetanus Immunization: Unknown - Past Medical History & Family History Past Medical History?: Yes - Past Social History Smoking Status: Current Some Days Smoker Chewing Tobacco Use: No Cigar Use: No Alcohol: Social Drugs: Denies - CARDIAC Hx Cardiac Disorders: Yes Hx Hypertension: Yes - PULMONARY Hx Respiratory Disorders: Yes Hx Asthma: Yes Hx Chronic Obstructive Pulmonary Disease (COPD): Yes Hx Pneumonia: Yes - NEUROLOGICAL Hx Neurological Disorder: Yes Other/Comment: peripheral neuropathy right lower extremity. - HEENT Hx HEENT Problems: Yes Other/Comment: recent right buccal abscess with possible involvement of the mandible - RENAL Hx Chronic Kidney Disease: No - ENDOCRINE/METABOLIC Hx Endocrine Disorders: Yes Hx Hyperthyroidism: Yes (on methimazole) - HEMATOLOGICAL/ONCOLOGICAL Hx Blood Disorders: Yes Hx Bruising: Yes Hx Human Immunodeficiency Virus (HIV): No - INTEGUMENTARY Hx Dermatological Problems: No - MUSCULOSKELETAL/RHEUMATOLOGICAL Hx Musculoskeletal Disorders: Yes (Multiple fractures) Hx Falls: Yes Hx Osteoporosis: Yes - GASTROINTESTINAL Hx Gastrointestinal Disorders: Yes Hx Gall Bladder Disease: Yes - GENITOURINARY/GYNECOLOGICAL Hx Genitourinary Disorders: No - PSYCHIATRIC Hx Psychophysiologic Disorder: No Hx Substance Use: No - SURGICAL HISTORY Hx Surgeries: Yes Hx Mastectomy: Yes (right in 1998; left in 2008) Hx Orthopedic Surgery: Yes (2003 rigtht shoulder prosthesis, removal of hardware 2013) Hx Tubal Ligation: Yes Other/Comment: shoulder and humerous replacement with joint space infection and eventual removal of hardware in right shoulder and chronic lymphedema of RUE, groin cyst removal, cervical spinal fusion 2007, lumbar spinal fusion 2007. - ANESTHESIA Hx Anesthesia: Yes Hx Anesthesia Reactions: No Hx Malignant Hyperthermia: No Meds Allergies/Adverse Reactions: Allergies Allergy/AdvReac Type Severity Reaction Status Date / Time paper tape Allergy RASH Uncoded 06/03/16 21:31 - Medications Medications: Current Medications Albuterol/Ipratropium (Duoneb 3 Mg/0.5 Mg (3 Ml) Ud) 3 ml INH RQID [facility] Last Admin: 07/22/16 19:32 Dose: 3 ml Alprazolam (Xanax) 0.5 mg PO Q8 [facility] Last Admin: 07/22/16 16:28 Dose: 0.5 mg Anastrozole (Arimidex 1 Mg Tab) 1 mg PO DAILY [facility] Last Admin: 07/22/16 08:35 Dose: 1 mg Famotidine (Pepcid) 40 mg PO DAILY [facility] Last Admin: 07/22/16 08:37 Dose: 40 mg Furosemide (Lasix) 20 mg IVP DAILY [facility] Last Admin: 07/21/16 08:50 Dose: Not Given Gabapentin (Neurontin) 600 mg PO Q8 [facility] Last Admin: 07/22/16 16:26 Dose: 600 mg Haloperidol Lactate (Haldol) 5 mg IVP ONCE [facility] Last Admin: 07/21/16 17:39 Dose: 5 mg Haloperidol Lactate (Haldol) 5 mg IVP ONCE [facility] Last Admin: 07/22/16 08:25 Dose: 5 mg Linezolid (Zyvox 600mg/300ml D5w) 300 mls @ 300 mls/hr IVPB Q12 [facility] Last Admin: 07/22/16 21:23 Dose: 300 mls/hr Ceftazidime 1 gm/ Sodium (Chloride) 100 mls @ 200 mls/hr IVPB Q8 [facility] Last Admin: 07/22/16 16:25 Dose: 200 mls/hr Methylprednisolone 30 mg/ (Sodium Chloride) 50 mls @ 100 mls/hr IV DAILY [facility] Last Admin: 07/22/16 08:30 Dose: 100 mls/hr Phenylephrine HCl 20 mg/ (Sodium Chloride) 252 mls @ 30.24 mls/hr IV .Q8H20M [facility]RE[facility]; 40 MCG/MIN PRN Reason: Protocol Lactobacillus Acidophilus (Bacid Acidophilus) 1 cap PO BID [facility] Last Admin: 07/22/16 16:28 Dose: 1 cap Loperamide HCl (Imodium) 2 mg PO QID PRN PRN Reason: Diarrhea Last Admin: 07/22/16 21:24 Dose: 2 mg Methimazole (Tapazole) 5 mg PO DAILY [facility] Last Admin: 07/22/16 08:38 Dose: 5 mg Metoprolol Tartrate (Lopressor) 12.5 mg PO Q12 [facility] Last Admin: 07/22/16 21:24 Dose: 12.5 mg Multi-Ingredient Cream (Hydrocerin Cream) 1 applic TOP BID [facility] Last Admin: 07/22/16 16:26 Dose: 1 applic Nitroglycerin (Nitro-Bid 2% Oint) 1 in TOP Q6 [facility] Last Admin: 07/22/16 16:26 Dose: 1 in Spironolactone (Aldactone) 25 mg PO DAILY [facility] Last Admin: 07/22/16 08:34 Dose: 25 mg Trimethoprim/Sulfamethoxazole (Sulfatrim Pediatric Susp) 20 ml PO Q12 [facility] Last Admin: 07/22/16 21:23 Dose: 20 ml Verapamil HCl (Calan Sr Tab) 180 mg PO DAILY [facility] Last Admin: 07/22/16 08:35 Dose: 180 mg Physical Exam - Head Exam Head Exam: ATRAUMATIC - Eye Exam Pupil Exam: PERRL - ENT Exam ENT Exam: Mucous Membranes Moist - Respiratory Exam Respiratory Exam: NORMAL BREATHING PATTERN - Cardiovascular Exam Cardiovascular Exam: +S1, +S2 - GI/Abdominal Exam GI & Abdominal Exam: Normal Bowel Sounds, Soft Results - Vital Signs Recent Vital Signs: Last Vital Signs Temp 97.7 F 07/22/16 19:58 Pulse 103 H 07/22/16 21:55 Resp 15 07/22/16 21:55 BP 124/70 07/22/16 21:55 Pulse Ox 100 07/22/16 21:55 - Labs Result Diagrams: 07/22/16 05:15 07/22/16 05:15 Labs: Laboratory Results - last 24 hr 07/16/16 07/22/16 07/22/16 14:00 05:09 05:15 WBC 8.5 D RBC 4.36 Hgb 12.2 Hct 38.2 MCV 87.7 MCH 27.9 MCHC 31.9 L RDW 24.0 H Plt Count 130 pCO2 61 H pO2 120 H HCO3 38.7 H ABG pH 7.47 H ABG Total CO2 46.3 H ABG O2 Saturation 99.1 H ABG O2 Content 16.8 ABG Base Excess 17.7 H ABG Hemoglobin 12.3 ABG Carboxyhemoglobin 2.0 H POC ABG HHb (Measured) 0.9 ABG Methemoglobin 1.0 ABG O2 Capacity 17.0 Tawanda Test Yes A-a O2 Difference 89.0 Hgb O2 Saturation 96.1 Vent Mode Prvc/ac Mechanical Rate 12 FiO2 40.0 Tidal Volume 400 PEEP 5 Sodium 139 Potassium 3.8 Chloride 96 L Carbon Dioxide 37 H Anion Gap 10 BUN 11 Creatinine 0.3 L Est GFR ( Amer) > 60 Est GFR (Non-Af Amer) > 60 Random Glucose 95 Calcium 8.7 VMA/Creatinine Ratio 15.0 H Assessment & Plan (1) Acute and chronic respiratory failure with hypercapnia Assessment and Plan: Patient will need PEG for feeding. She was still sedated from meds she received earlier today. when I saw her. If patient is alert in the morning will discuss and proceed with PEG if she agrees. Status: Acute
[2016-07-23] MEDS: Nitroglycerin 2% 1GM UD TOP SCH ×5 (00:16→21:39)
[2016-07-23 05:11] LABS: ABG ALLEN TEST YES; ABG MECHANICAL RATE 12; ARTERIAL BLOOD GAS MODE A/C; ARTERIAL BLOOD GAS O2 CONTENT 13.9 ML/dL (15-23); ARTERIAL BLOOD GAS PH 7.48 (7.35-7.45); ARTERIAL BLOOD GAS PO2 114 mm/Hg (80-100); ARTERIAL BLOOD HGB O2 SAT 96.5 % (95.0-98.0); ATERIAL BLOOD GAS PEEP 5; CARBOXYHEMOGLOBIN 1.7 % (0.5-1.5); HHB 0.7 % (0.0-5.0)
[2016-07-23 06:08] LABS: BASO % 0.2 % (0.0-2.0); EOS % 0.1 % (0.0-4.0); HEMATOCRIT 32.1 % (34.0-47.0); LYMPH # 0.5 K/uL (1.0-4.3); LYMPH % 7.1 % (20.0-40.0); MEAN CELL VOLUME 87.6 fl (81.0-99.0); MEAN CORPUSCULAR HEMOGLOBIN 28.1 pg (27.0-31.0); MEAN PLATELET VOLUME 8.4 fl (7.2-11.7); MONO # 0.7 K/uL (0.0-0.8); MONO % 9.6 % (0.0-10.0); NRBC % 0.2 % (0.0-0.0); PLATELET COUNT 104 K/uL (130-400); RED CELL DISTRIBUTION WIDTH 23.6 % (11.5-14.5); WHITE BLOOD COUNT 7.2 K/uL (4.8-10.8)
[2016-07-23 06:23] LABS: ALKALINE PHOSPHATASE 150 U/L (38-126); ALT/SGPT 89 U/L (9-52); AST/SGOT 34 U/L (14-36); BILIRUBIN,TOTAL 0.2 mg/dl (0.2-1.3); BLOOD UREA NITROGEN 12 mg/dl (7-17); CALCIUM 8.3 mg/dL (8.4-10.2); CARBON DIOXIDE 34 mmol/L (22-30); CHLORIDE 98 mmol/L (98-107); GFR AFRICAN-AMERICAN > 60; GLUCOSE,RANDOM 90 mg/dL (65-105); POTASSIUM 3.8 MMOL/L (3.6-5.0); SODIUM 134 mmol/l (132-148); TOTAL PROTEIN 4.6 G/DL (6.3-8.2)
[2016-07-23] MEDS: Albuterol-Ipratrop 3 mg / 0.5 (3 ml) UD INH SCH ×4 (07:25→19:32)
--- NOTE | 2016-07-23 07:30 | CP.CCUPN ---
<Heladio Louie T - Last Filed: 07/23/16 11:12> CCU Subjective - Physician Review Subjective (Free Text): Pt is seen and examined at bedside in the ICU. Pt on CPAP via tracheotomy and leakage is noted that does improve w repositioning. Pt is responsive to loud voices but cannot respond verbally nor can she write due to severe weakness. Full ROS information unattainable as result. A line placed yesterday afternoon for episode of hypotension. No known events, problems, or desaturations overnight. CCU Objective - Vital Signs / Intake & Output Vital Signs (Last 4 hours): Vital Signs Temp Pulse Resp BP 07/23/16 04:00 98.1 F 79 20 92/58 L Intake and Output (Last 8hrs): Intake & Output 07/22/16 07/23/16 07/23/16 22:59 06:59 14:59 Intake Total 945 390 Output Total 140 Balance 805 390 Weight 112 lb Intake: Intake, Piggyback 400 100 Tube Feeding 320 240 Free Water Flush 225 50 Output: Urine 140 Urethral (Gutierrez) 140 Other: # Bowel Movements 1 - Physical Exam Head: Positive for: Atraumatic, Swelling (R mandible, improving). Negative for : Ecchymosis Pupils: Positive for: PERRL. Negative for: Sluggish, Non-Reactive Extroacular Muscles: Negative for: Gaze Palsy, Entrapment Conjunctiva: Positive for: Normal Mouth: Positive for: Dry Neck: Positive for: Trachea Midline, Other (tracheotomy, clean). Negative for: MIDLINE TENDERNESS, Paraspinal Tenderness, JVD, Lymphadenopathy, Bruit Respiratory/Chest: Positive for: Good Air Exchange, Decreased Breath Sounds, Rhonchi (moderate). Negative for: Respiratory Distress, Accessory Muscle Use, Wheezes Cardiovascular: Positive for: Normal S1, S2, Peripheal Pulses Present, Tachycardic. Negative for: Murmurs, Irregular Rhythm Abdomen: Positive for: Normal Bowel Sounds. Negative for: Tenderness, Distention Upper Extremity: Positive for: NORMAL PULSES, Capillary Refill < 2s, Other (L arm presents w/o edema, normal pulses; Rt arm edema). Negative for: Cyanosis, Tenderness Lower Extremity: Positive for: Edema, NORMAL PULSES. Negative for: CALF TENDERNESS Neurological: Positive for: Other (tracheotomy, CPAP, responsive to loud voice) Skin: Positive for: Warm, Dry, Normal Color - Medications Active Medications: Active Medications Generic Name Dose Route Start Last Admin Trade Name Freq PRN Reason Stop Dose Admin Albuterol/Ipratropium 3 ml 07/19/16 12:00 07/22/16 19:32 Duoneb 3 Mg/0.5 Mg (3 Ml) Ud INH 3 ml RQID ANDREAS Administration Alprazolam 0.5 mg 07/21/16 17:45 07/23/16 00:15 Xanax PO 0.5 mg Q8 ANDREAS Administration Anastrozole 1 mg 07/07/16 09:00 07/22/16 08:35 Arimidex 1 Mg Tab PO 1 mg DAILY ANDREAS Administration Famotidine 40 mg 07/22/16 09:00 07/22/16 08:37 Pepcid PO 40 mg DAILY ANDREAS Administration Furosemide 20 mg 07/18/16 10:30 07/21/16 08:50 Lasix IVP Not Given DAILY ANDREAS Gabapentin 600 mg 07/06/16 17:00 07/23/16 00:15 Neurontin PO 600 mg Q8 ANDREAS Administration Haloperidol Lactate 5 mg 07/21/16 17:45 07/21/16 17:39 Haldol IVP 5 mg ONCE ANDREAS Administration Haloperidol Lactate 5 mg 07/22/16 08:15 07/22/16 08:25 Haldol IVP 5 mg ONCE ANDREAS Administration Linezolid 300 mls @ 300 mls/hr 07/06/16 21:00 07/22/16 21:23 Zyvox 600mg/300ml D5w IVPB 300 mls/hr Q12 ANDREAS Administration Ceftazidime 1 gm/ Sodium 100 mls @ 200 mls/hr 07/13/16 01:00 07/23/16 00:15 Chloride IVPB 200 mls/hr Q8 ANDREAS Administration Methylprednisolone 30 mg/ 50 mls @ 100 mls/hr 07/22/16 09:00 07/22/16 08:30 Sodium Chloride IV 100 mls/hr DAILY ANDREAS Administration Phenylephrine HCl 20 mg/ 252 mls @ 30.24 mls/hr 07/22/16 12:30 Sodium Chloride IV .Q8H20M ANDREAS Protocol 40 MCG/MIN Lactobacillus Acidophilus 1 cap 07/06/16 17:00 07/22/16 16:28 Bacid Acidophilus PO 1 cap BID ANDREAS Administration Loperamide HCl 2 mg 07/21/16 13:14 07/22/16 21:24 Imodium PO 2 mg QID PRN Administration Diarrhea Methimazole 5 mg 07/14/16 09:00 07/22/16 08:38 Tapazole PO 5 mg DAILY ANDREAS Administration Metoprolol Tartrate 12.5 mg 07/22/16 09:00 07/22/16 21:24 Lopressor PO 12.5 mg Q12 ANDREAS Administration Multi-Ingredient Cream 1 applic 07/06/16 17:00 07/22/16 16:26 Hydrocerin Cream TOP 1 applic BID ANDREAS Administration Nitroglycerin 1 in 07/06/16 16:00 07/23/16 04:00 Nitro-Bid 2% Oint TOP 1 in Q6 ANDREAS Administration Spironolactone 25 mg 07/07/16 09:00 07/22/16 08:34 Aldactone PO 25 mg DAILY ANDREAS Administration Trimethoprim/Sulfamethoxazole 20 ml 07/17/16 21:00 07/22/16 21:23 Sulfatrim Pediatric Susp PO 20 ml Q12 ANDREAS Administration Verapamil HCl 180 mg 07/21/16 18:00 07/22/16 08:35 Calan Sr Tab PO 180 mg DAILY ANDREAS Administration - Patient Studies Lab Studies: Lab Studies 07/23/16 07/23/16 07/16/16 Range/Units 06:00 05:01 14:00 WBC 7.2 (4.8-10.8) K/uL RBC 3.67 L (3.80-5.20) Mil/uL Hgb 10.3 L (12.0-16.0) g/dL Hct 32.1 L (34.0-47.0) % MCV 87.6 (81.0-99.0) fl MCH 28.1 (27.0-31.0) pg MCHC 32.0 L (33.0-37.0) g/dL RDW 23.6 H (11.5-14.5) % Plt Count 104 L D (130-400) K/uL MPV 8.4 (7.2-11.7) fl Neut % (Auto) 83.0 H (50.0-75.0) % Lymph % (Auto) 7.1 L (20.0-40.0) % King % (Auto) 9.6 (0.0-10.0) % Eos % (Auto) 0.1 (0.0-4.0) % Baso % (Auto) 0.2 (0.0-2.0) % Neut # 6.0 (1.8-7.0) K/uL Lymph # 0.5 L (1.0-4.3) K/uL King # 0.7 (0.0-0.8) K/uL Eos # 0.0 (0.0-0.7) K/uL Baso # 0.0 (0.0-0.2) K/uL pCO2 51 H (35-45) mm/Hg pO2 114 H (80-100) mm/Hg HCO3 35.0 H (21-28) mmol/L ABG pH 7.48 H (7.35-7.45) ABG Total CO2 39.6 H (22-28) mmol/L ABG O2 Saturation 99.3 H (95-98) % ABG O2 Content 13.9 L (15-23) ML/dL ABG Base Excess 12.9 H (-2.0-3.0) mmol/L ABG Hemoglobin 10.1 L (11.7-17.4) g/dL ABG Carboxyhemoglobin 1.7 H (0.5-1.5) % POC ABG HHb (Measured) 0.7 (0.0-5.0) % ABG Methemoglobin 1.0 (0.0-3.0) % ABG O2 Capacity 14.0 L (16-24) mL/dL Tawanda Test Yes A-a O2 Difference 107.0 mm/Hg Hgb O2 Saturation 96.5 (95.0-98.0) % Vent Mode A/c Mechanical Rate 12 FiO2 40.0 % Tidal Volume 400 PEEP 5 Sodium 134 (132-148) mmol/l Potassium 3.8 (3.6-5.0) MMOL/L Chloride 98 (98-107) mmol/L Carbon Dioxide 34 H (22-30) mmol/L Anion Gap 6 L (10-20) BUN 12 (7-17) mg/dl Creatinine 0.2 L (0.7-1.2) mg/dL Est GFR ( Amer) > 60 Est GFR (Non-Af Amer) > 60 Random Glucose 90 (65-105) mg/dL Calcium 8.3 L (8.4-10.2) mg/dL Total Bilirubin 0.2 (0.2-1.3) mg/dl AST 34 (14-36) U/L ALT 89 H (9-52) U/L Alkaline Phosphatase 150 H D (38-126) U/L Total Protein 4.6 L (6.3-8.2) G/DL Albumin 2.3 L (3.5-5.0) g/dL Globulin 2.3 (2.2-3.9) gm/dL Albumin/Globulin Ratio 1.0 (1.0-2.1) VMA/Creatinine Ratio 15.0 H (1.1-4.1) mg/g creat Laboratory Results - last 24 hr 07/16/16 07/23/16 07/23/16 14:00 05:01 06:00 WBC 7.2 RBC 3.67 L Hgb 10.3 L Hct 32.1 L MCV 87.6 MCH 28.1 MCHC 32.0 L RDW 23.6 H Plt Count 104 L D MPV 8.4 Neut % (Auto) 83.0 H Lymph % (Auto) 7.1 L King % (Auto) 9.6 Eos % (Auto) 0.1 Baso % (Auto) 0.2 Neut # 6.0 Lymph # 0.5 L King # 0.7 Eos # 0.0 Baso # 0.0 pCO2 51 H pO2 114 H HCO3 35.0 H ABG pH 7.48 H ABG Total CO2 39.6 H ABG O2 Saturation 99.3 H ABG O2 Content 13.9 L ABG Base Excess 12.9 H ABG Hemoglobin 10.1 L ABG Carboxyhemoglobin 1.7 H POC ABG HHb (Measured) 0.7 ABG Methemoglobin 1.0 ABG O2 Capacity 14.0 L Tawanda Test Yes A-a O2 Difference 107.0 Hgb O2 Saturation 96.5 Vent Mode A/c Mechanical Rate 12 FiO2 40.0 Tidal Volume 400 PEEP 5 Sodium 134 Potassium 3.8 Chloride 98 Carbon Dioxide 34 H Anion Gap 6 L BUN 12 Creatinine 0.2 L Est GFR ( Amer) > 60 Est GFR (Non-Af Amer) > 60 Random Glucose 90 Calcium 8.3 L Total Bilirubin 0.2 AST 34 ALT 89 H Alkaline Phosphatase 150 H D Total Protein 4.6 L Albumin 2.3 L Globulin 2.3 Albumin/Globulin Ratio 1.0 VMA/Creatinine Ratio 15.0 H Review of Systems - Review of Systems Review of Systems: see HPI Assessment/Plan - Assessment and Plan (Free Text) Plan: 66 yo F w PMHx of HTN, COPD, bilateral Breast cancer, h/o Hyperthyroidism is admitted to ICU for sob/dyspnea w/in setting of copd exacerbation 1) Acute on chronic respiratory failure with hypercapnea; setting of COPD -Tracheotomy performed few days previously due to continued respiratory distress -Recently off vent, now on CPAP due to the recent episodes of respiratory distress --CPAP: PS 5, PEEP 5, FiO2 50% --Vent leak previously noted, but during exam no loss of trach balloon integrity seen. Re-positioning of tube seemed to diminish leak. -PEG tube placement delayed due to tachycardia and leaking issue w trach -Linezolid 600mg IVPB Q12H -Bactrim 435mg IVPB Q12H -Fortaz 1g IVPB Q8H -Spironolactone 25mg PO Daily -Methylprednisolone 30mg IV Daily -Duoneb 3mL RQ4H PRN -f/u ABGs -f/u respiratory function 2) Acute exacerbation of Systolic CHF -Echo (06/14): LVEF 40-45 %; Dilated RV with mild/mod decrease RV function, diastolic inflow pattern is restrictive -Spironolactone 25mg PO Daily -f/u strict I&Os -f/u Daily Wt 3) Tachycardia -Verapamil 180mg PO Daily -Metoprolol 12.5mg PO Q12H -f/u Vitals 4) VRE (vancomycin resistant enterococcus) culture positive -mandible osteomyelitis wound Cx+ resulted: VRE -Linezolid 600mg IVPB Q12H 5) Chronic Pain -Presently asymptomatic 6) Anxiety -Xanax 0.5mg PO Q8H PRN 7) Hyperthyroidism -Methimazole 5mg PO BID 8) Anemia -Stable -h/h 10.3/32.1 this AM 9) DVT Prophylaxis -Lovenox 40mg SC Daily 10) PUD Prophylaxis -Pepcid 40mg PO Daily <Phoenix Miller - Last Filed: 07/23/16 16:18> CCU Objective - Vital Signs / Intake & Output Vital Signs (Last 4 hours): Vital Signs Pulse Resp BP Pulse Ox 07/23/16 15:00 108 H 23 107/53 L 100 07/23/16 14:00 103 H 19 110/52 L 99 07/23/16 13:00 113 H 24 93/53 L 100 Intake and Output (Last 8hrs): Intake & Output 07/23/16 07/23/16 07/23/16 06:59 14:59 22:59 Intake Total 390 790 Balance 390 790 Weight 112 lb Intake: Intake, Piggyback 100 650 Tube Feeding 240 40 Free Water Flush 50 100 Other: # Bowel Movements 1 - Medications Active Medications: Active Medications Generic Name Dose Route Start Last Admin Trade Name Freq PRN Reason Stop Dose Admin Albuterol/Ipratropium 3 ml 07/19/16 12:00 07/23/16 15:29 Duoneb 3 Mg/0.5 Mg (3 Ml) Ud INH 3 ml RQID ANDREAS Administration Alprazolam 0.5 mg 07/21/16 17:45 07/23/16 16:12 Xanax PO Not Given Q8 ANDREAS Anastrozole 1 mg 07/07/16 09:00 07/23/16 09:16 Arimidex 1 Mg Tab PO 1 mg DAILY ANDREAS Administration Famotidine 40 mg 07/22/16 09:00 07/23/16 09:15 Pepcid PO 40 mg DAILY ANDREAS Administration Furosemide 20 mg 07/18/16 10:30 07/21/16 08:50 Lasix IVP Not Given DAILY ANDREAS Gabapentin 600 mg 07/06/16 17:00 07/23/16 16:10 Neurontin PO 600 mg Q8 ANDREAS Administration Haloperidol Lactate 5 mg 07/21/16 17:45 07/21/16 17:39 Haldol IVP 5 mg ONCE ANDREAS Administration Haloperidol Lactate 5 mg 07/22/16 08:15 07/22/16 08:25 Haldol IVP 5 mg ONCE ANDREAS Administration Linezolid 300 mls @ 300 mls/hr 07/06/16 21:00 07/23/16 09:55 Zyvox 600mg/300ml D5w IVPB 300 mls/hr Q12 ANDREAS Administration Methylprednisolone 30 mg/ 50 mls @ 100 mls/hr 07/22/16 09:00 07/23/16 09:19 Sodium Chloride IV 100 mls/hr DAILY ANDREAS Administration Phenylephrine HCl 20 mg/ 252 mls @ 30.24 mls/hr 07/22/16 12:30 Sodium Chloride IV .Q8H20M ANDREAS Protocol 40 MCG/MIN Ceftazidime 1 gm/ Sodium 50 mls @ 100 mls/hr 07/23/16 17:00 07/23/16 09:41 Chloride IVPB 100 mls/hr Q8 ANDREAS Administration Lactobacillus Acidophilus 1 cap 07/06/16 17:00 07/23/16 16:10 Bacid Acidophilus PO 1 cap BID ANDREAS Administration Loperamide HCl 2 mg 07/21/16 13:14 07/23/16 09:16 Imodium PO 2 mg QID PRN Administration Diarrhea Methimazole 5 mg 07/14/16 09:00 07/23/16 09:16 Tapazole PO 5 mg DAILY ANDREAS Administration Metoprolol Tartrate 12.5 mg 07/22/16 09:00 07/23/16 09:16 Lopressor PO 12.5 mg Q12 ANDREAS Administration Multi-Ingredient Cream 1 applic 07/06/16 17:00 07/23/16 16:13 Hydrocerin Cream TOP 1 applic BID ANDREAS Administration Nitroglycerin 1 in 07/06/16 16:00 07/23/16 16:11 Nitro-Bid 2% Oint TOP 1 in Q6 ANDREAS Administration Spironolactone 25 mg 07/07/16 09:00 07/23/16 09:18 Aldactone PO 25 mg DAILY ANDREAS Administration Trimethoprim/Sulfamethoxazole 20 ml 07/17/16 21:00 07/23/16 09:03 Sulfatrim Pediatric Susp PO 20 ml Q12 ANDREAS Administration Verapamil HCl 180 mg 07/21/16 18:00 07/23/16 09:26 Calan Sr Tab PO 180 mg DAILY ANDREAS Administration - Patient Studies Lab Studies: Lab Studies 07/23/16 07/23/16 07/16/16 Range/Units 06:00 05:01 14:00 WBC 7.2 (4.8-10.8) K/uL RBC 3.67 L (3.80-5.20) Mil/uL Hgb 10.3 L (12.0-16.0) g/dL Hct 32.1 L (34.0-47.0) % MCV 87.6 (81.0-99.0) fl MCH 28.1 (27.0-31.0) pg MCHC 32.0 L (33.0-37.0) g/dL RDW 23.6 H (11.5-14.5) % Plt Count 104 L D (130-400) K/uL MPV 8.4 (7.2-11.7) fl Neut % (Auto) 83.0 H (50.0-75.0) % Lymph % (Auto) 7.1 L (20.0-40.0) % King % (Auto) 9.6 (0.0-10.0) % Eos % (Auto) 0.1 (0.0-4.0) % Baso % (Auto) 0.2 (0.0-2.0) % Neut # 6.0 (1.8-7.0) K/uL Lymph # 0.5 L (1.0-4.3) K/uL King # 0.7 (0.0-0.8) K/uL Eos # 0.0 (0.0-0.7) K/uL Baso # 0.0 (0.0-0.2) K/uL Neutrophils % (Manual) 86 H (42-75) % Band Neutrophils % 1 (0-2) % Lymphocytes % (Manual) 5 L (20-50) % Reactive Lymphs % 3 H (0-0) % Monocytes % (Manual) 5 (0-10) % Platelet Estimate Markedly decreased L (NORMAL) Large Platelets Present Anisocytosis (manual) Slight Target Cells Slight Stomatocytes Slight pCO2 51 H (35-45) mm/Hg pO2 114 H (80-100) mm/Hg HCO3 35.0 H (21-28) mmol/L ABG pH 7.48 H (7.35-7.45) ABG Total CO2 39.6 H (22-28) mmol/L ABG O2 Saturation 99.3 H (95-98) % ABG O2 Content 13.9 L (15-23) ML/dL ABG Base Excess 12.9 H (-2.0-3.0) mmol/L ABG Hemoglobin 10.1 L (11.7-17.4) g/dL ABG Carboxyhemoglobin 1.7 H (0.5-1.5) % POC ABG HHb (Measured) 0.7 (0.0-5.0) % ABG Methemoglobin 1.0 (0.0-3.0) % ABG O2 Capacity 14.0 L (16-24) mL/dL Tawanda Test Yes A-a O2 Difference 107.0 mm/Hg Hgb O2 Saturation 96.5 (95.0-98.0) % Vent Mode A/c Mechanical Rate 12 FiO2 40.0 % Tidal Volume 400 PEEP 5 Sodium 134 (132-148) mmol/l Potassium 3.8 (3.6-5.0) MMOL/L Chloride 98 (98-107) mmol/L Carbon Dioxide 34 H (22-30) mmol/L Anion Gap 6 L (10-20) BUN 12 (7-17) mg/dl Creatinine 0.2 L (0.7-1.2) mg/dL Est GFR ( Amer) > 60 Est GFR (Non-Af Amer) > 60 Random Glucose 90 (65-105) mg/dL Calcium 8.3 L (8.4-10.2) mg/dL Total Bilirubin 0.2 (0.2-1.3) mg/dl AST 34 (14-36) U/L ALT 89 H (9-52) U/L Alkaline Phosphatase 150 H D (38-126) U/L Total Protein 4.6 L (6.3-8.2) G/DL Albumin 2.3 L (3.5-5.0) g/dL Globulin 2.3 (2.2-3.9) gm/dL Albumin/Globulin Ratio 1.0 (1.0-2.1) VMA/Creatinine Ratio 15.0 H (1.1-4.1) mg/g creat Laboratory Results - last 24 hr 07/16/16 07/23/16 07/23/16 14:00 05:01 06:00 WBC 7.2 RBC 3.67 L Hgb 10.3 L Hct 32.1 L MCV 87.6 MCH 28.1 MCHC 32.0 L RDW 23.6 H Plt Count 104 L D MPV 8.4 Neut % (Auto) 83.0 H Lymph % (Auto) 7.1 L King % (Auto) 9.6 Eos % (Auto) 0.1 Baso % (Auto) 0.2 Neut # 6.0 Lymph # 0.5 L King # 0.7 Eos # 0.0 Baso # 0.0 Neutrophils % (Manual) 86 H Band Neutrophils % 1 Lymphocytes % (Manual) 5 L Reactive Lymphs % 3 H Monocytes % (Manual) 5 Platelet Estimate Markedly decreased L Large Platelets Present Anisocytosis (manual) Slight Target Cells Slight Stomatocytes Slight pCO2 51 H pO2 114 H HCO3 35.0 H ABG pH 7.48 H ABG Total CO2 39.6 H ABG O2 Saturation 99.3 H ABG O2 Content 13.9 L ABG Base Excess 12.9 H ABG Hemoglobin 10.1 L ABG Carboxyhemoglobin 1.7 H POC ABG HHb (Measured) 0.7 ABG Methemoglobin 1.0 ABG O2 Capacity 14.0 L Tawanda Test Yes A-a O2 Difference 107.0 Hgb O2 Saturation 96.5 Vent Mode A/c Mechanical Rate 12 FiO2 40.0 Tidal Volume 400 PEEP 5 Sodium 134 Potassium 3.8 Chloride 98 Carbon Dioxide 34 H Anion Gap 6 L BUN 12 Creatinine 0.2 L Est GFR ( Amer) > 60 Est GFR (Non-Af Amer) > 60 Random Glucose 90 Calcium 8.3 L Total Bilirubin 0.2 AST 34 ALT 89 H Alkaline Phosphatase 150 H D Total Protein 4.6 L Albumin 2.3 L Globulin 2.3 Albumin/Globulin Ratio 1.0 VMA/Creatinine Ratio 15.0 H Assessment/Plan (1) Acute respiratory failure with hypoxia Current Visit: Yes Status: Acute Attending/Attestation - Attestation I have personally seen and examined this patient.: Yes I have fully participated in the care of the patient.: Yes I have reviewed all pertinent clinical information: Yes Notes (Text): 07/23/16 16:16I have seen and examined the patient. Medical records, lab studies, and imaging were reviewed by me and a management plan was formulated on multidisciplinary rounds with resident Dr. Louie. I agree with their above documented assessment and plan. Patient did not get PEG today secondary to tachycardia, will sedate with fentanyl gtt on Tuesday when PEG placement will be re-attempted. Patient will need 6 weeks of IV antibiotics for right mandibular osteomyelitis. Critical Care Time 35 minutes. Multi-disciplinary rounds were performed with house staff, nursing, speech therapy, respiratory therapy, pharmacy and nutrition with integrated input from the primary team/attending and other consulting services. The documented time is cumulative and includes review of patient data/exams/labs/chart review and examination of the patient on rounds and throughout the day; time is exclusive of any procedures or teaching time.
[2016-07-23 07:32] LABS: NEUTROPHIL 86 % (42-75); REACTIVE LYMPHOCYTES 3 % (0-0); TOTAL CELLS COUNTED 100
[2016-07-23 07:33] LABS: LARGE PLATELETS PRESENT; STOMATOCYTES SLIGHT
--- NOTE | 2016-07-23 08:16 | CP.PCM.PN ---
Subjective - Date & Time of Evaluation Date of Evaluation: 07/23/16 Time of Evaluation: 08:13 - Subjective Subjective: NOW HAS HAD 4 WEEKS OF LINEZOLID AND 2 WEEKS OF CEFTAZIDINE WITH TRIMETHOPRIM/ SULFA ADDED 2 WEEKS AGO. Seen on rounds in the ICU. Discussed at the bedside with the business law instructor. Planned PEG tube placement for this morning has been postponed because of tachycardia and air leak in trcheostomy. Trach cuff pressures noted and adjusted, no loss of balloon integrity. Tube positioning results in ameliorating the leak, but is very positional. Patient able to maintain good oxygenation, but anxiety level is high and she is tachypneic as well as tachycardic. Breath sounds are present bilaterally with audible sonorous rhonchi, no wheeze and no bronchial breathing. Heart rate 130BPM sinus tachycardia. Dependant edema is slowly decreasing. No cyanosis. PEG tube postponed until Tuesday. Surgery asked to evaluate tracheostomy. May plan bedside bronchoscopy to assess tube status and clear airways if needed. Continue present antibiotic therapy. Sedation/analgesia as needed. Remains on ventilator support presently (CPAP/PS 5//50). Objective - Vital Signs/Intake and Output Vital Signs (last 24 hours): Temp Pulse Resp BP Pulse Ox 97.3 F L 129 H 29 H 150/77 98 07/23/16 07:57 07/23/16 07:57 07/23/16 07:57 07/23/16 07:57 07/23/16 07:57 Intake and Output: 07/22/16 07/23/16 23:59 11:59 Intake Total 2105 390 Output Total 255 Balance 1850 390 - Medications Medications: Current Medications Albuterol/Ipratropium (Duoneb 3 Mg/0.5 Mg (3 Ml) Ud) 3 ml INH RQID [facility] Last Admin: 07/22/16 19:32 Dose: 3 ml Alprazolam (Xanax) 0.5 mg PO Q8 [facility] Last Admin: 07/23/16 00:15 Dose: 0.5 mg Anastrozole (Arimidex 1 Mg Tab) 1 mg PO DAILY [facility] Last Admin: 07/22/16 08:35 Dose: 1 mg Famotidine (Pepcid) 40 mg PO DAILY [facility] Last Admin: 07/22/16 08:37 Dose: 40 mg Furosemide (Lasix) 20 mg IVP DAILY [facility] Last Admin: 07/21/16 08:50 Dose: Not Given Gabapentin (Neurontin) 600 mg PO Q8 [facility] Last Admin: 07/23/16 00:15 Dose: 600 mg Haloperidol Lactate (Haldol) 5 mg IVP ONCE [facility] Last Admin: 07/21/16 17:39 Dose: 5 mg Haloperidol Lactate (Haldol) 5 mg IVP ONCE [facility] Last Admin: 07/22/16 08:25 Dose: 5 mg Linezolid (Zyvox 600mg/300ml D5w) 300 mls @ 300 mls/hr IVPB Q12 [facility] Last Admin: 07/22/16 21:23 Dose: 300 mls/hr Ceftazidime 1 gm/ Sodium (Chloride) 100 mls @ 200 mls/hr IVPB Q8 [facility] Last Admin: 07/23/16 00:15 Dose: 200 mls/hr Methylprednisolone 30 mg/ (Sodium Chloride) 50 mls @ 100 mls/hr IV DAILY [facility] Last Admin: 07/22/16 08:30 Dose: 100 mls/hr Phenylephrine HCl 20 mg/ (Sodium Chloride) 252 mls @ 30.24 mls/hr IV .Q8H20M ANDREAS; 40 MCG/MIN PRN Reason: Protocol Lactobacillus Acidophilus (Bacid Acidophilus) 1 cap PO BID [facility] Last Admin: 07/22/16 16:28 Dose: 1 cap Loperamide HCl (Imodium) 2 mg PO QID PRN PRN Reason: Diarrhea Last Admin: 07/22/16 21:24 Dose: 2 mg Methimazole (Tapazole) 5 mg PO DAILY [facility] Last Admin: 07/22/16 08:38 Dose: 5 mg Metoprolol Tartrate (Lopressor) 12.5 mg PO Q12 [facility] Last Admin: 07/22/16 21:24 Dose: 12.5 mg Multi-Ingredient Cream (Hydrocerin Cream) 1 applic TOP BID [facility] Last Admin: 07/22/16 16:26 Dose: 1 applic Nitroglycerin (Nitro-Bid 2% Oint) 1 in TOP Q6 [facility] Last Admin: 07/23/16 04:00 Dose: 1 in Spironolactone (Aldactone) 25 mg PO DAILY [facility] Last Admin: 07/22/16 08:34 Dose: 25 mg Trimethoprim/Sulfamethoxazole (Sulfatrim Pediatric Susp) 20 ml PO Q12 [facility] Last Admin: 07/22/16 21:23 Dose: 20 ml Verapamil HCl (Calan Sr Tab) 180 mg PO DAILY [facility]RE[facility] Last Admin: 07/22/16 08:35 Dose: 180 mg - Labs Labs: 07/23/16 06:00 07/23/16 06:00 PT 12.0 SECONDS (9.6-11.2) H 07/19/16 04:20 INR 1.15 (0.92-1.08) H 07/19/16 04:20 APTT 27.7 SECONDS (23.3-32.5) 07/09/16 08:00 Assessment and Plan (1) Acute bronchitis with chronic obstructive pulmonary disease (COPD) Status: Acute (2) Hyperthyroidism Status: Chronic (3) Abscess Status: Acute (4) Hypokalemia Status: Acute
[2016-07-23] MEDS ORDERED: ceFAZolin 1 GM in Sodium Chloride 0.9% 100 ML IVPB STA (08:26)
[2016-07-23] MEDS ORDERED: Etomidate 20 mg/10ml Inj IV ONE (08:28)
[2016-07-23] MEDS ORDERED: Midazolam 2 MG/2 ML VIAL ONE (08:28)
[2016-07-23] MEDS: Tmp-Smz 200-40mg/5 ml Oral Sus(120 ml) PO SCH ×2 (09:03→20:20)
[2016-07-23] MEDS: Famotidine 40 MG/5 ML PO SCH (09:15)
[2016-07-23] MEDS: methIMAzole 5 MG TAB PO SCH (09:16)
[2016-07-23] MEDS: methylPREDNISolone 30 MG in Sodium Chloride 0.9% 50 ML IV SCH (09:19)
[2016-07-23] MEDS: Verapamil 180 mg ER Tab PO SCH (09:26)
--- NOTE | 2016-07-23 09:27 | RAD ---
PROCEDURE: CHEST RADIOGRAPH, 1 VIEW HISTORY: follow up COMPARISON: 07/22/2016 FINDINGS: LUNGS: Persistent right basilar opacity. PLEURA: No pneumothorax or pleural fluid seen. CARDIOVASCULAR: Normal. OSSEOUS STRUCTURES: No significant abnormalities. VISUALIZED UPPER ABDOMEN: Normal. OTHER FINDINGS: Tubes and catheters unchanged in position IMPRESSION: No significant interval change.
[2016-07-23] MEDS: cefTAZidime 1 GM in Sodium Chloride 0.9% 50 ML IVPB SCH (09:41)
[2016-07-23] MEDS: Hydrocerin CREAM TOP SCH ×2 (09:54→16:13)
[2016-07-23] MEDS: Linezolid 600 mg in D5W 300 ml 300 ML IVPB SCH ×2 (09:55→20:20)
--- NOTE | 2016-07-23 13:26 | PN ---
DATE: 07/23/2016 ROOM: 434 ICU. This is a 66-year-old female with recent congestive heart failure and supervening acute exacerbation of COPD, who is now being followed closely for metabolic management of hyperthyroidism. Her latest chemistry showed a BUN of 12, sodium 134, potassium 3.8, chloride 98, CO2 34, glucose 90 a nd creatinine 0.2. Her latest thyroid study showed a TSH of 1.06 and a T4 of 3.83. So at this time, we will continue the low-dose medical therapy with Tapazole given as 5 mg once daily as ordered. We will titrate incrementally as indicated to optimize metabolic control. We will foll ow. Polly Vu MD cc: [id number] TT: 07/23/2016 13:25:56 Confirmation # [id number] Dictation # [id number]
--- NOTE | 2016-07-23 14:31 | CP.PCM.PN ---
Subjective - Date & Time of Evaluation Date of Evaluation: 07/23/16 Time of Evaluation: 09:30 - Subjective Subjective: Patient appears tachypneic and uncomfortable Objective - Vital Signs/Intake and Output Vital Signs (last 24 hours): Temp Pulse Resp BP Pulse Ox 98.4 F 103 H 19 110/52 L 99 07/23/16 12:00 07/23/16 14:00 07/23/16 14:00 07/23/16 14:00 07/23/16 14:00 Intake and Output: 07/23/16 07/23/16 06:59 18:59 Intake Total 925 750 Balance 925 750 - Medications Medications: Current Medications Albuterol/Ipratropium (Duoneb 3 Mg/0.5 Mg (3 Ml) Ud) 3 ml INH RQID [facility] Last Admin: 07/23/16 11:10 Dose: 3 ml Alprazolam (Xanax) 0.5 mg PO Q8 [facility] Last Admin: 07/23/16 09:21 Dose: 0.5 mg Anastrozole (Arimidex 1 Mg Tab) 1 mg PO DAILY [facility] Last Admin: 07/23/16 09:16 Dose: 1 mg Famotidine (Pepcid) 40 mg PO DAILY [facility] Last Admin: 07/23/16 09:15 Dose: 40 mg Furosemide (Lasix) 20 mg IVP DAILY [facility] Last Admin: 07/21/16 08:50 Dose: Not Given Gabapentin (Neurontin) 600 mg PO Q8 [facility] Last Admin: 07/23/16 09:16 Dose: 600 mg Haloperidol Lactate (Haldol) 5 mg IVP ONCE [facility] Last Admin: 07/21/16 17:39 Dose: 5 mg Haloperidol Lactate (Haldol) 5 mg IVP ONCE [facility] Last Admin: 07/22/16 08:25 Dose: 5 mg Linezolid (Zyvox 600mg/300ml D5w) 300 mls @ 300 mls/hr IVPB Q12 [facility] Last Admin: 07/23/16 09:55 Dose: 300 mls/hr Methylprednisolone 30 mg/ (Sodium Chloride) 50 mls @ 100 mls/hr IV DAILY [facility] Last Admin: 07/23/16 09:19 Dose: 100 mls/hr Phenylephrine HCl 20 mg/ (Sodium Chloride) 252 mls @ 30.24 mls/hr IV .Q8H20M [facility]; 40 MCG/MIN PRN Reason: Protocol Ceftazidime 1 gm/ Sodium (Chloride) 50 mls @ 100 mls/hr IVPB Q8 [facility] Last Admin: 07/23/16 09:41 Dose: 100 mls/hr Lactobacillus Acidophilus (Bacid Acidophilus) 1 cap PO BID [facility] Last Admin: 07/22/16 16:28 Dose: 1 cap Loperamide HCl (Imodium) 2 mg PO QID PRN PRN Reason: Diarrhea Last Admin: 07/23/16 09:16 Dose: 2 mg Methimazole (Tapazole) 5 mg PO DAILY [facility] Last Admin: 07/23/16 09:16 Dose: 5 mg Metoprolol Tartrate (Lopressor) 12.5 mg PO Q12 [facility] Last Admin: 07/23/16 09:16 Dose: 12.5 mg Multi-Ingredient Cream (Hydrocerin Cream) 1 applic TOP BID [facility] Last Admin: 07/23/16 09:54 Dose: 1 applic Nitroglycerin (Nitro-Bid 2% Oint) 1 in TOP Q6 [facility] Last Admin: 07/23/16 09:19 Dose: 1 in Spironolactone (Aldactone) 25 mg PO DAILY [facility] Last Admin: 07/23/16 09:18 Dose: 25 mg Trimethoprim/Sulfamethoxazole (Sulfatrim Pediatric Susp) 20 ml PO Q12 [facility] Last Admin: 07/23/16 09:03 Dose: 20 ml Verapamil HCl (Calan Sr Tab) 180 mg PO DAILY [facility] Last Admin: 07/23/16 09:26 Dose: 180 mg - Labs Labs: 07/23/16 06:00 07/23/16 06:00 PT 12.0 SECONDS (9.6-11.2) H 07/19/16 04:20 INR 1.15 (0.92-1.08) H 07/19/16 04:20 APTT 27.7 SECONDS (23.3-32.5) 07/09/16 08:00 - Head Exam Head Exam: ATRAUMATIC - ENT Exam ENT Exam: Mucous Membranes Moist - Neck Exam Neck Exam: Normal Inspection - Respiratory Exam Respiratory Exam: Clear to Ausculation Bilateral - Cardiovascular Exam Cardiovascular Exam: Tachycardia, REGULAR RHYTHM - GI/Abdominal Exam GI & Abdominal Exam: Soft. absent: Tenderness Assessment and Plan (1) Acute and chronic respiratory failure with hypercapnia Assessment & Plan: Patient seen with Dr. Benz and he recommended postponing the PEG until patient is more stable. Will reattempt on Tuesday if patient more stable. Status: Acute
[2016-07-23] MEDS: Lactobacillus Acidophilus 500 MU Cap PO SCH ×2 (14:57→16:10)
--- NOTE | 2016-07-23 17:46 | CP.PCM.PN ---
Subjective - Date & Time of Evaluation Date of Evaluation: 07/23/16 Time of Evaluation: 12:00 - Subjective Subjective: Patient was seen and examined bedside. Chronically ill female , intubated on MV via trache , on CPAP mode and tolerating well since 9 Am this morning. 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 Peg placement on hold today BP 110/52 , afebrile HR 103 ABG 51/114/35/7.48 WBC 7 hgb 10 plt 104 CXR - improved air entry bilaterally, improved Right lower lobe infiltrates Objective - Vital Signs/Intake and Output Vital Signs (last 24 hours): Temp Pulse Resp BP Pulse Ox 97.9 F 122 H 30 H 113/66 99 07/23/16 17:39 07/23/16 17:39 07/23/16 17:39 07/23/16 17:39 07/23/16 17:39 Intake and Output: 07/23/16 07/23/16 06:59 18:59 Intake Total 925 1010 Balance 925 1010 - Medications Medications: Current Medications Albuterol/Ipratropium (Duoneb 3 Mg/0.5 Mg (3 Ml) Ud) 3 ml INH RQID [facility] Last Admin: 07/23/16 15:29 Dose: 3 ml Alprazolam (Xanax) 0.5 mg PO Q8 [facility] Last Admin: 07/23/16 16:12 Dose: Not Given Anastrozole (Arimidex 1 Mg Tab) 1 mg PO DAILY [facility] Last Admin: 07/23/16 09:16 Dose: 1 mg Famotidine (Pepcid) 40 mg PO DAILY [facility] Last Admin: 07/23/16 09:15 Dose: 40 mg Furosemide (Lasix) 20 mg IVP DAILY [facility] Last Admin: 07/21/16 08:50 Dose: Not Given Gabapentin (Neurontin) 600 mg PO Q8 [facility] Last Admin: 07/23/16 16:10 Dose: 600 mg Haloperidol Lactate (Haldol) 5 mg IVP ONCE [facility] Last Admin: 07/21/16 17:39 Dose: 5 mg Haloperidol Lactate (Haldol) 5 mg IVP ONCE [facility] Last Admin: 07/22/16 08:25 Dose: 5 mg Linezolid (Zyvox 600mg/300ml D5w) 300 mls @ 300 mls/hr IVPB Q12 [facility] Last Admin: 07/23/16 09:55 Dose: 300 mls/hr Methylprednisolone 30 mg/ (Sodium Chloride) 50 mls @ 100 mls/hr IV DAILY [facility] Last Admin: 07/23/16 09:19 Dose: 100 mls/hr Phenylephrine HCl 20 mg/ (Sodium Chloride) 252 mls @ 30.24 mls/hr IV .Q8H20M [facility]; 40 MCG/MIN PRN Reason: Protocol Ceftazidime 1 gm/ Sodium (Chloride) 50 mls @ 100 mls/hr IVPB Q8 [facility] Last Admin: 07/23/16 09:41 Dose: 100 mls/hr Lactobacillus Acidophilus (Bacid Acidophilus) 1 cap PO BID [facility] Last Admin: 07/23/16 16:10 Dose: 1 cap Loperamide HCl (Imodium) 2 mg PO QID PRN PRN Reason: Diarrhea Last Admin: 07/23/16 09:16 Dose: 2 mg Methimazole (Tapazole) 5 mg PO DAILY [facility] Last Admin: 07/23/16 09:16 Dose: 5 mg Metoprolol Tartrate (Lopressor) 12.5 mg PO Q12 [facility] Last Admin: 07/23/16 09:16 Dose: 12.5 mg Multi-Ingredient Cream (Hydrocerin Cream) 1 applic TOP BID [facility] Last Admin: 07/23/16 16:13 Dose: 1 applic Nitroglycerin (Nitro-Bid 2% Oint) 1 in TOP Q6 [facility] Last Admin: 07/23/16 16:11 Dose: 1 in Spironolactone (Aldactone) 25 mg PO DAILY [facility] Last Admin: 07/23/16 09:18 Dose: 25 mg Trimethoprim/Sulfamethoxazole (Sulfatrim Pediatric Susp) 20 ml PO Q12 [facility] Last Admin: 07/23/16 09:03 Dose: 20 ml Verapamil HCl (Calan Sr Tab) 180 mg PO DAILY [facility] Last Admin: 07/23/16 09:26 Dose: 180 mg - Labs Labs: 07/23/16 06:00 07/23/16 06:00 PT 12.0 SECONDS (9.6-11.2) H 07/19/16 04:20 INR 1.15 (0.92-1.08) H 07/19/16 04:20 APTT 27.7 SECONDS (23.3-32.5) 07/09/16 08:00 - Constitutional Appears: No Acute Distress, Chronically Ill, Other (intubated via trache, anxious) - Head Exam Head Exam: ATRAUMATIC, NORMOCEPHALIC - Eye Exam Eye Exam: EOMI, Periorbital swelling, PERRL - ENT Exam ENT Exam: Mucous Membranes Dry - Neck Exam Neck Exam: Normal Inspection - Respiratory Exam Respiratory Exam: Decreased Breath Sounds (bibasilar ), Rhonchi (bilaterally). absent: Respiratory Distress - Cardiovascular Exam Cardiovascular Exam: Tachycardia. absent: JVD - GI/Abdominal Exam GI & Abdominal Exam: Soft, Normal Bowel Sounds. absent: Guarding, Tenderness, Rebound - Rectal Exam Rectal Exam: Deferred - Exam External exam: Swelling (bilateral labia more on the right ) - Extremities Exam Extremities Exam: Pedal Edema (3 + edema bilateral thigh , improved to LE , small laceration lateral to right knee with seeping serous fluid). absent: Calf Tenderness Additional comments: RUE lympedema - Neurological Exam Neurological Exam: Alert, Awake - Psychiatric Exam Psychiatric exam: Anxious, Flat Affect - Skin Skin Exam: Dry, Pallor, Warm Additional comments: upper chest and extremities echymotic areas Assessment and Plan - Assessment and Plan (Free Text) Assessment: 66 y/o female PMH COPD, bilateral breast CA s/p chemo and radiation 8 years ago , HTN, Hyperthyroidism presented with 2 week history of worsening bilateral lower extremity swelling and weakness, unable to get herself up to her walker. Patient has mild dyspnea at baseline. She also came with a large right facial swelling for almost 2 weeks and was taking PO antibiotics prescribed by her dentist. Patient was admitted for generalized weakness , Hyponatremia and Facial abscess. She was started on IV antibiotics for facial abscess and Lasix IV with fluid restriction for LE edema. Maxillofacial Ct showed possible abscess accumulation. Evaluated by Oromaxillofacial surgeon and underwent Incision and drainage of abscess. Bone scan showed possible osteomyelitis and ID recommends 4-6 wks IV abx treatment. During this hospitalization noted to have increased dyspnea at rest and more so with minimal activity, decreased air entry bilaterally and increased work of breathing. She was started on high flow O2, Higher doses of theophylline and IV hydrocortisone. CTA chest and LE doppler showed no DVT. She was transferred to ICU for close monitoring for tachypnea and tachycardia. She underwent IR drainage on 06/24 of right facial abscess due to re accumulation and cultures came positive for VRE and bria. Antibiotics were changed to Zyvox , Meropenem and Fluconazone. Despite drainage and IV antibiotics she still kept complaining of pain to right supramandibular area with increased swelling. Repeat CT showed abscess formation. Patient underwent I&D in OR 07/06/16 with cynthia drainage placement. She continues to have episodes of resp distress - tachypneic , tachycardic , with chest congestion , unable to expectorate despite high flow O2 therapy, Duonebs and Corticosteroids. 07/07/16 underwent Bronchoscopy. BAL showed Stenotrophomonas Maltophilia. Antibiotics changed to IV bactrim, Fortaz, Zyvox and Fluconazole. On 07/09 she developed severe respiratory distress with hypoxemia requiring intubation . Patient failed multiple attempts of extubation and at present s/p trache placement 07/19. Plan for poss d/c to LTACH once peg is placed 1. Acute on Chronic Respiratory Failure with hypercapnea Multiple trials of intubation and extubation , failed extubation s/p Tracheostomy 07/19 Pulmonary: Dr Benz, is following pt closely on CPAP today and tolerating so far. Air leak noted that was fixed with repositioning of trache CXR shows improvement of RLL infiltrate For possible repeat bronchoscopy as per pulmonary to address the air leak Bronchoscopy 07/07/16 with BAL growing Stenotrophomonas maltophilla. On Bactrim, Fortaz, and Zyvox as per ID on Methylprednisone 30 mg Iv q24, Xopenex, albuterol and tiotropium inhaler 2. Facial abscess with mandibular Osteomyelitis s/p drainage of abscess and I& D s/p Incision and drainage on 06/[address] Anderson maxillofacial surgeon and rpt I&D 07/06 pathology report showed inflammatory cells, no malignancy Nuclear Bone Scan suggestive of osteomyelitis initial cultures were with no growth ID consult with Dr Obrien on board managing antibiotics based on cultures reported Due to increased swelling and pain patient underwent drainage of facial collection by IR on 06/24 and 24 ml yellow fluid obtained. Cultures reported as VRE and Bria On Zyvox , Bactrim, Fortaz ( received 6 wks total IV abx ) - discussed with Dr Obrien - rec to continue IV abx for now Discontinued Fluconazole due to abnormal LFT-s At present on bactrim , Fortaz,and Zyvox 3.Recurrent Chest Pain episodes , prob sec to Anxiety, ACS ruled out with recurrent pressure like chest pain on and off cardiology consulted Dr. Jus Terry -- negative and EKG showed no ST-T wave changes Most likely atypical chest pain related to anxiety , hypokalemia and COPD, no signs of ischemia Pain mgt consulted- Dr Verdugo Ativan prn Fentanyl drip discontinued 4. Bilateral LE edema sec to CHF exacerbation with diastolic dysfxn slowly improving edema to LE but with seeping thigh edema Echo showed EF 40-45 % and dilated RV continue fluid restriction Promote ambulation once better cont Aldactone 5. Hypokalemia multifactorial diuretic induced , Albuterol, Hypothyroidism and GI loss off Lasix, on Aldactone Continue KCl runs and PO replacement as needed Nephro consult appreciated CT of abd showed no adrenal mass 6 .Hyponatremia most likely secondary to solute depletion and infection Continue fluid restriction 7.Hx breast ca, bilateral stable, s/p bilateral mastectomy continue Arimidex 8. Tachycardia/SVT -- multifactorial Hx of HTN was on verapamil at home now on low dose Started Metoprolol 12.5 mg po bid continue monitoring patient with high levels of anxiety and pain called Dr Verdugo for Pain mgt , discussed case off fentanyl drip 9. Hypothyroidism/ Hyperthyroidism patient has history of hyperthyroidism , was on Methimazole and noticed to had developed hypothyroidism so Methimazole was d/c and she was started on Po levothyroxine this admission , TSH then went down and Metrhimazole restarted Methimazole 5 mg po daily restarted as discussed with Dr Vu 10. Anemia, chronic dis monitor anemia work up showed depleted iron stores Venofer IV given s/p 2 units PRBC transfusion 11. Right cephalic vein thrombosis ( superficial vein) no need for therapeutic anticoag 12.Thrombocytopenia improving Most likely related to bone marrow suppression and multiple medication use Continue monitoring 13.DVT ppx on lovenox
[2016-07-24] MEDS: cefTAZidime 1 GM in Sodium Chloride 0.9% 50 ML IVPB SCH (00:15)
[2016-07-24] MEDS: Nitroglycerin 2% 1GM UD TOP SCH ×5 (04:23→21:47)
[2016-07-24 05:36] LABS: ABG ALLEN TEST YES; ARTERIAL BLOOD GAS HCO3 35.6 mmol/L (21-28); ARTERIAL BLOOD GAS MODE CPAP; ARTERIAL BLOOD GAS O2 CAPACITY 15.2 mL/dL (16-24); ARTERIAL BLOOD GAS O2 CONTENT 15.1 ML/dL (15-23); ARTERIAL BLOOD GAS PH 7.39 (7.35-7.45); ARTERIAL BLOOD GAS PO2 147 mm/Hg (80-100); ARTERIAL BLOOD HGB O2 SAT 96.8 % (95.0-98.0); ATERIAL BLOOD GAS PEEP 5; CARBOXYHEMOGLOBIN 1.5 % (0.5-1.5); HHB 0.6 % (0.0-5.0)
[2016-07-24 06:32] LABS: BLOOD UREA NITROGEN 12 mg/dl (7-17); CALCIUM 9.1 mg/dL (8.4-10.2); CARBON DIOXIDE 35 mmol/L (22-30); CHLORIDE 96 mmol/L (98-107); GFR AFRICAN-AMERICAN > 60; GLUCOSE,RANDOM 98 mg/dL (65-105); POTASSIUM 4.4 MMOL/L (3.6-5.0); SODIUM 131 mmol/l (132-148)
[2016-07-24 06:44] LABS: HEMATOCRIT 35.1 % (34.0-47.0); MEAN CELL VOLUME 88.8 fl (81.0-99.0); MEAN CORPUSCULAR HEMOGLOBIN 28.6 pg (27.0-31.0); MEAN CORPUSCULAR HGB CONC 32.2 g/dL (33.0-37.0); RED CELL DISTRIBUTION WIDTH 23.6 % (11.5-14.5); WHITE BLOOD COUNT 8.1 K/uL (4.8-10.8)
--- NOTE | 2016-07-24 07:51 | CP.CCUPN ---
CCU Subjective - Physician Review Events Since Last Encounter (Free Text): 07/24/16 07:49 Patient awake, on ventilator through tracheostomy, on CPAP with PS 5, PEEP 5, FIO2 50%, on NG feeding, no pressors, events reviewed CCU Objective - Vital Signs / Intake & Output Vital Signs (Last 4 hours): Vital Signs Temp Pulse Resp BP Pulse Ox 07/24/16 06:43 120 H 30 H 133/76 100 07/24/16 06:00 106 H 26 H 125/55 L 100 07/24/16 05:00 106 H 24 127/50 L 100 07/24/16 04:00 98.7 F 124 H 21 90/50 L 100 Intake and Output (Last 8hrs): Intake & Output 07/23/16 07/24/16 07/24/16 22:59 06:59 14:59 Intake Total 720 710 Output Total 400 900 Balance 320 -190 Intake: IV 0 Intake, Piggyback 300 50 Tube Feeding 320 360 Free Water Flush 100 300 Output: Gastric Amount 0 Stomach 0 Urine 400 900 Urethral (Gutierrez) 400 900 Other: # Bowel Movements 1 1 - Physical Exam Head: Positive for: Atraumatic, Swelling (R mandible, improving). Negative for : Ecchymosis Pupils: Positive for: PERRL. Negative for: Sluggish, Non-Reactive Extroacular Muscles: Negative for: Gaze Palsy, Entrapment Conjunctiva: Positive for: Normal Mouth: Positive for: Dry Pharnyx: Positive for: Normal Nose (External): Positive for: Atraumatic Nose (Internal): Positive for: Normal Inspection Neck: Positive for: Trachea Midline, Other (tracheotomy, clean). Negative for: MIDLINE TENDERNESS, Paraspinal Tenderness, JVD, Lymphadenopathy, Bruit Respiratory/Chest: Positive for: Good Air Exchange, Decreased Breath Sounds, Rhonchi (moderate). Negative for: Accessory Muscle Use, Wheezes Cardiovascular: Positive for: Normal S1, S2, Peripheal Pulses Present, Tachycardic. Negative for: Murmurs, Irregular Rhythm Abdomen: Positive for: Normal Bowel Sounds. Negative for: Tenderness, Distention Upper Extremity: Positive for: NORMAL PULSES, Capillary Refill < 2s, Other (L arm presents w/o edema, normal pulses; Rt arm edema). Negative for: Cyanosis, Tenderness Lower Extremity: Positive for: Edema, NORMAL PULSES. Negative for: CALF TENDERNESS Neurological: Positive for: Other (tracheotomy, CPAP, responsive to loud voice) Skin: Positive for: Warm, Dry, Normal Color - Medications Active Medications: Active Medications Generic Name Dose Route Start Last Admin Trade Name Freq PRN Reason Stop Dose Admin Albuterol/Ipratropium 3 ml 07/19/16 12:00 07/23/16 19:32 Duoneb 3 Mg/0.5 Mg (3 Ml) Ud INH 3 ml RQID [facility] Administration Alprazolam 0.5 mg 07/21/16 17:45 07/24/16 00:12 Xanax PO 0.5 mg Q8 [facility] Administration Anastrozole 1 mg 07/07/16 09:00 07/23/16 09:16 Arimidex 1 Mg Tab PO 1 mg DAILY [facility] Administration Famotidine 40 mg 07/22/16 09:00 07/23/16 09:15 Pepcid PO 40 mg DAILY [facility] Administration Furosemide 20 mg 07/18/16 10:30 07/21/16 08:50 Lasix IVP Not Given DAILY [facility] Gabapentin 600 mg 07/06/16 17:00 07/24/16 01:29 Neurontin PO 600 mg Q8 [facility] Administration Haloperidol Lactate 5 mg 07/21/16 17:45 07/21/16 17:39 Haldol IVP 5 mg ONCE [facility] Administration Haloperidol Lactate 5 mg 07/22/16 08:15 07/22/16 08:25 Haldol IVP 5 mg ONCE [facility] Administration Linezolid 300 mls @ 300 mls/hr 07/06/16 21:00 07/23/16 20:20 Zyvox 600mg/300ml D5w IVPB 300 mls/hr Q12 [facility] Administration Methylprednisolone 30 mg/ 50 mls @ 100 mls/hr 07/22/16 09:00 07/23/16 09:19 Sodium Chloride IV 100 mls/hr DAILY [facility] Administration Phenylephrine HCl 20 mg/ 252 mls @ 30.24 mls/hr 07/22/16 12:30 Sodium Chloride IV .Q8H20M [facility] Protocol 40 MCG/MIN Ceftazidime 1 gm/ Sodium 50 mls @ 100 mls/hr 07/23/16 17:00 07/24/16 00:15 Chloride IVPB 100 mls/hr Q8 [facility] Administration Lactobacillus Acidophilus 1 cap 07/06/16 17:00 07/23/16 16:10 Bacid Acidophilus PO 1 cap BID [facility] Administration Loperamide HCl 2 mg 07/21/16 13:14 07/23/16 09:16 Imodium PO 2 mg QID PRN Administration Diarrhea Methimazole 5 mg 07/14/16 09:00 07/23/16 09:16 Tapazole PO 5 mg DAILY [facility] Administration Metoprolol Tartrate 12.5 mg 07/22/16 09:00 07/23/16 20:19 Lopressor PO 12.5 mg Q12 [facility] Administration Multi-Ingredient Cream 1 applic 07/06/16 17:00 07/23/16 16:13 Hydrocerin Cream TOP 1 applic BID [facility] Administration Nitroglycerin 1 in 07/06/16 16:00 07/24/16 05:00 Nitro-Bid 2% Oint TOP 1 in Q6 [facility] Administration Spironolactone 25 mg 07/07/16 09:00 07/23/16 09:18 Aldactone PO 25 mg DAILY [facility] Administration Trimethoprim/Sulfamethoxazole 20 ml 07/17/16 21:00 07/23/16 20:20 Sulfatrim Pediatric Susp PO 20 ml Q12 [facility] Administration Verapamil HCl 180 mg 07/21/16 18:00 07/23/16 09:26 Calan Sr Tab PO 180 mg DAILY [facility] Administration - Patient Studies Lab Studies: Lab Studies 07/24/16 07/24/16 Range/Units 06:02 05:35 WBC 8.1 (4.8-10.8) K/uL RBC 3.95 (3.80-5.20) Mil/uL Hgb 11.3 L (12.0-16.0) g/dL Hct 35.1 (34.0-47.0) % MCV 88.8 (81.0-99.0) fl MCH 28.6 (27.0-31.0) pg MCHC 32.2 L (33.0-37.0) g/dL RDW 23.6 H (11.5-14.5) % Plt Count 141 (130-400) K/uL pCO2 68 H (35-45) mm/Hg pO2 147 H (80-100) mm/Hg HCO3 35.6 H (21-28) mmol/L ABG pH 7.39 (7.35-7.45) ABG Total CO2 43.3 H (22-28) mmol/L ABG O2 Saturation 99.4 H (95-98) % ABG O2 Content 15.1 (15-23) ML/dL ABG Base Excess 13.7 H (-2.0-3.0) mmol/L ABG Hemoglobin 10.9 L (11.7-17.4) g/dL ABG Carboxyhemoglobin 1.5 (0.5-1.5) % POC ABG HHb (Measured) 0.6 (0.0-5.0) % ABG Methemoglobin 1.0 (0.0-3.0) % ABG O2 Capacity 15.2 L (16-24) mL/dL Tawanda Test Yes A-a O2 Difference 125.0 mm/Hg Hgb O2 Saturation 96.8 (95.0-98.0) % Vent Mode Cpap FiO2 50.0 % PEEP 5 Pressure Support 5 Sodium 131 L (132-148) mmol/l Potassium 4.4 (3.6-5.0) MMOL/L Chloride 96 L (98-107) mmol/L Carbon Dioxide 35 H (22-30) mmol/L Anion Gap 4 L (10-20) BUN 12 (7-17) mg/dl Creatinine 0.3 L (0.7-1.2) mg/dL Est GFR ( Amer) > 60 Est GFR (Non-Af Amer) > 60 Random Glucose 98 (65-105) mg/dL Calcium 9.1 (8.4-10.2) mg/dL Laboratory Results - last 24 hr 07/24/16 07/24/16 05:35 06:02 WBC 8.1 RBC 3.95 Hgb 11.3 L Hct 35.1 MCV 88.8 MCH 28.6 MCHC 32.2 L RDW 23.6 H Plt Count 141 pCO2 68 H pO2 147 H HCO3 35.6 H ABG pH 7.39 ABG Total CO2 43.3 H ABG O2 Saturation 99.4 H ABG O2 Content 15.1 ABG Base Excess 13.7 H ABG Hemoglobin 10.9 L ABG Carboxyhemoglobin 1.5 POC ABG HHb (Measured) 0.6 ABG Methemoglobin 1.0 ABG O2 Capacity 15.2 L Tawanda Test Yes A-a O2 Difference 125.0 Hgb O2 Saturation 96.8 Vent Mode Cpap FiO2 50.0 PEEP 5 Pressure Support 5 Sodium 131 L Potassium 4.4 Chloride 96 L Carbon Dioxide 35 H Anion Gap 4 L BUN 12 Creatinine 0.3 L Est GFR ( Amer) > 60 Est GFR (Non-Af Amer) > 60 Random Glucose 98 Calcium 9.1 Assessment/Plan - Assessment and Plan (Free Text) Assessment: A/P respiratory failure, COPD, CHF, sepsis, hyperthyroid, anemia, anxiety - Ventilatory support - Weaning as tolerated - Pulmonary toilets - Continue meds - Pending PEG Critical care 40 min
[2016-07-24] MEDS: Albuterol-Ipratrop 3 mg / 0.5 (3 ml) UD INH SCH ×4 (08:48→19:52)
[2016-07-24] MEDS: Linezolid 600 mg in D5W 300 ml 300 ML IVPB SCH ×2 (09:38→21:43)
[2016-07-24] MEDS: methylPREDNISolone 30 MG in Sodium Chloride 0.9% 50 ML IV SCH (09:40)
[2016-07-24] MEDS: Tmp-Smz 200-40mg/5 ml Oral Sus(120 ml) PO SCH ×2 (09:41→21:46)
[2016-07-24] MEDS: Lactobacillus Acidophilus 500 MU Cap PO SCH (09:42)
[2016-07-24] MEDS: methIMAzole 5 MG TAB PO SCH (09:42)
[2016-07-24] MEDS: Verapamil 180 mg ER Tab PO SCH (09:42)
[2016-07-24] MEDS: Famotidine 40 MG/5 ML PO SCH (09:43)
[2016-07-24] MEDS: Hydrocerin CREAM TOP SCH ×2 (09:43→17:26)
--- NOTE | 2016-07-24 10:06 | CP.PCM.PN ---
Subjective - Date & Time of Evaluation Date of Evaluation: 07/24/16 Time of Evaluation: 10:00 - Subjective Subjective: s/p Trach on Vent CPAP mode feeding per NGT- plan for PEG placement on Tuesday No fever pain controlled at present calm today , comfortable had diarrhea yesterday- none so far No CP no SOB no abd pain Objective - Vital Signs/Intake and Output Vital Signs (last 24 hours): Temp Pulse Resp BP Pulse Ox 98 F 108 H 23 101/56 L 100 07/24/16 07:50 07/24/16 07:50 07/24/16 07:50 07/24/16 07:50 07/24/16 07:50 Intake and Output: 07/24/16 07/24/16 06:59 18:59 Intake Total 1130 Output Total 900 Balance 230 - Medications Medications: Current Medications Albuterol/Ipratropium (Duoneb 3 Mg/0.5 Mg (3 Ml) Ud) 3 ml INH RQID [facility] Last Admin: 07/24/16 08:48 Dose: 3 ml Alprazolam (Xanax) 0.5 mg PO Q8 [facility] Last Admin: 07/24/16 00:12 Dose: 0.5 mg Anastrozole (Arimidex 1 Mg Tab) 1 mg PO DAILY [facility] Last Admin: 07/23/16 09:16 Dose: 1 mg Famotidine (Pepcid) 40 mg PO DAILY [facility] Last Admin: 07/23/16 09:15 Dose: 40 mg Furosemide (Lasix) 20 mg IVP DAILY [facility] Last Admin: 07/21/16 08:50 Dose: Not Given Gabapentin (Neurontin) 600 mg PO Q8 [facility] Last Admin: 07/24/16 01:29 Dose: 600 mg Haloperidol Lactate (Haldol) 5 mg IVP ONCE [facility] Last Admin: 07/21/16 17:39 Dose: 5 mg Haloperidol Lactate (Haldol) 5 mg IVP ONCE [facility] Last Admin: 07/22/16 08:25 Dose: 5 mg Linezolid (Zyvox 600mg/300ml D5w) 300 mls @ 300 mls/hr IVPB Q12 [facility] Last Admin: 07/23/16 20:20 Dose: 300 mls/hr Methylprednisolone 30 mg/ (Sodium Chloride) 50 mls @ 100 mls/hr IV DAILY [facility] Last Admin: 07/23/16 09:19 Dose: 100 mls/hr Phenylephrine HCl 20 mg/ (Sodium Chloride) 252 mls @ 30.24 mls/hr IV .Q8H20M ANDREAS; 40 MCG/MIN PRN Reason: Protocol Ceftazidime 1 gm/ Sodium (Chloride) 100 mls @ 200 mls/hr IVPB Q8 [facility] Lactobacillus Acidophilus (Bacid Acidophilus) 1 cap PO BID [facility] Last Admin: 07/23/16 16:10 Dose: 1 cap Loperamide HCl (Imodium) 2 mg PO QID PRN PRN Reason: Diarrhea Last Admin: 07/23/16 09:16 Dose: 2 mg Methimazole (Tapazole) 5 mg PO DAILY [facility] Last Admin: 07/23/16 09:16 Dose: 5 mg Metoprolol Tartrate (Lopressor) 12.5 mg PO Q12 [facility] Last Admin: 07/23/16 20:19 Dose: 12.5 mg Multi-Ingredient Cream (Hydrocerin Cream) 1 applic TOP BID [facility] Last Admin: 07/23/16 16:13 Dose: 1 applic Nitroglycerin (Nitro-Bid 2% Oint) 1 in TOP Q6 [facility] Last Admin: 07/24/16 05:00 Dose: 1 in Spironolactone (Aldactone) 25 mg PO DAILY [facility] Last Admin: 07/23/16 09:18 Dose: 25 mg Trimethoprim/Sulfamethoxazole (Sulfatrim Pediatric Susp) 20 ml PO Q12 [facility] Last Admin: 07/23/16 20:20 Dose: 20 ml Verapamil HCl (Calan Sr Tab) 180 mg PO DAILY [facility] Last Admin: 07/23/16 09:26 Dose: 180 mg - Labs Labs: 07/24/16 06:02 07/24/16 06:02 PT 12.0 SECONDS (9.6-11.2) H 07/19/16 04:20 INR 1.15 (0.92-1.08) H 07/19/16 04:20 APTT 27.7 SECONDS (23.3-32.5) 07/09/16 08:00 - Constitutional Appears: Not in any Distress, Older Than Stated Age, Chronically Ill s/p Tracheostomy on Vent NGT in place - Head Exam Head Exam: NORMAL INSPECTION, NORMOCEPHALIC Right facial abscess wound now almost flat with very minimal drainage, very sl tender - Eye Exam Eye Exam: EOMI, Normal appearance Pupil Exam: NORMAL ACCOMODATION - ENT Exam ENT Exam: Mucous Membranes Dry, Normal External Ear Exam NGT in place - Neck Exam Neck Exam: Full ROM. absent: Meningismus s/p Trach - Respiratory Exam Respiratory Exam: Accessory Muscle Use, Chest Wall Tenderness, Decreased Breath Sounds, Rhonchi, Respiratory Distress - Cardiovascular Exam Cardiovascular Exam: Tachycardia, REGULAR RHYTHM, +S1, +S2 - GI/Abdominal Exam GI & Abdominal Exam: Soft, Normal Bowel Sounds. absent: Tenderness NGT in place - Extremities Exam Extremities Exam: absent: Calf Tenderness, Normal Capillary Refill Additional comments: Right arm edema right shoulder post surgical deformity - Neurological Exam Additional comments: awake , nods to say yes, follows simple commands oriented - Psychiatric Exam Psychiatric exam: Flat Affect - Skin Additional comments: noted ecchymosis denise on chest and LE Assessment and Plan (1) Acute and chronic respiratory failure with hypercapnia Status: Acute (2) Osteomyelitis of mandible Status: Acute (3) Hypothyroidism Status: Acute (4) Acute exacerbation of chronic obstructive pulmonary disease (COPD) Status: Acute (5) HTN (hypertension) Status: Chronic (6) Hx of breast cancer Status: Chronic (7) Acute exacerbation of CHF (congestive heart failure) Status: Acute (8) Hypokalemia Status: Acute (9) Facial abscess Status: Acute (10) DVT prophylaxis Status: Acute - Assessment and Plan (Free Text) Assessment: 66 y/o female PMH COPD, bilateral breast CA s/p chemo and radiation 8 years ago , HTN, Hyperthyroidism presented with 2 week history of worsening bilateral lower extremity swelling and weakness, unable to get herself up to her walker. Patient has mild dyspnea at baseline. She also came with a large right facial swelling for almost 2 weeks and was taking PO antibiotics prescribed by her dentist. Patient was admitted for generalized weakness , Hyponatremia and Facial abscess. She was started on IV antibiotics for facial abscess and Lasix IV with fluid restriction for LE edema. Maxillofacial Ct showed possible abscess accumulation. Evaluated by Oromaxillofacial surgeon and underwent Incision and drainage of abscess. Bone scan showed possible osteomyelitis During this hospitalization noted to have increased dyspnea at rest and more so with minimal activity, decreased air entry bilaterally and increased work of breathing. She was started on high flow O2, Higher doses of theophylline and IV hydrocortisone. CTA chest and LE doppler showed no DVT. She was transferred to ICU for close monitoring for tachypnea and tachycardia. She underwent IR drainage on 06/24 of right facial abscess due to re accumulation and cultures came positive for VRE and bria. Antibiotics were changed to Zyvox , Meropenem and Fluconazone. Despite drainage and IV antibiotics she still kept complaining of pain to right supramandibular area with increased swelling. Repeat CT showed abscess formation. Patient underwent I&D in OR 07/06/16 with cynthia drainage placement. She continues to have episodes of resp distress - tachypneic , tachycardic , with chest congestion , unable to expectorate despite high flow O2 therapy, Duonebs and Corticosteroids. 07/07/16 underwent Bronchoscopy. BAL showed Stenotrophomonas Maltophilia. Antibiotics changed to IV bactrim, Fortaz, Zyvox and Fluconazole. On 07/09 she developed severe respiratory distress with hypoxemia requiring intubation . Patient failed multiple attempts of extubation and at present s/p trache placement 07/19. Plan for poss d/c to LTACH once peg is placed 1. Acute on Chronic Respiratory Failure with hypercapnea Multiple trials of intubation and extubation , failed extubation s/p Tracheostomy 07/19 Pulmonary: Dr Benz, is following pt closely on CPAP today and tolerating so far. Air leak noted that was fixed with repositioning of trache CXR shows improvement of RLL infiltrate For possible repeat bronchoscopy as per pulmonary to address the air leak Bronchoscopy 07/07/16 with BAL growing Stenotrophomonas maltophilla. On Bactrim, Fortaz, and Zyvox as per ID on Methylprednisone 30 mg Iv q24, Xopenex, albuterol and tiotropium inhaler Paln for PEG placement on Tuesday 2. Facial abscess with mandibular Osteomyelitis s/p drainage of abscess and I& D s/p Incision and drainage on 06/[address] Anderson maxillofacial surgeon and rpt I&D 07/06 pathology report showed inflammatory cells, no malignancy Nuclear Bone Scan suggestive of osteomyelitis initial cultures were with no growth ID consult with Dr Obrien on board managing antibiotics based on cultures reported Due to increased swelling and pain patient underwent drainage of facial collection by IR on 06/24 and 24 ml yellow fluid obtained. Cultures reported as VRE and Bria On Zyvox , Bactrim, Fortaz ( received 6 wks total IV abx ) - discussed with Dr Obrien - rec to continue IV abx for now Discontinued Fluconazole due to abnormal LFT-s At present on bactrim , Fortaz,and Zyvox 3. Recurrent Chest Pain episodes , prob sec to Anxiety, ACS ruled out with recurrent pressure like chest pain on and off cardiology consulted Dr. Jus Terry -- negative and EKG showed no ST-T wave changes Most likely atypical chest pain related to anxiety , and COPD, no signs of ischemia Pain mgt consulted- Dr Verdugo Ativan prn Fentanyl drip discontinued 4. Bilateral LE edema sec to CHF exacerbation with diastolic dysfxn slowly improving edema to LE but with seeping thigh edema Echo showed EF 40-45 % and dilated RV continue fluid restriction Promote ambulation once better cont Aldactone 5. Hypokalemia multifactorial diuretic induced , Albuterol, Hypothyroidism and GI loss off Lasix, on Aldactone Continue KCl runs and PO replacement as needed Nephro consult appreciated CT of abd showed no adrenal mass 6 .Hyponatremia most likely secondary to solute depletion and infection Continue fluid restriction 7.Hx breast ca, bilateral stable, s/p bilateral mastectomy continue Arimidex 8. Tachycardia/SVT -- multifactorial Hx of HTN was on verapamil at home , cont low dose Verapamil Started low dose Metoprolol 12.5 mg po bid continue monitoring patient with high levels of anxiety and pain called Dr Verdugo for Pain mgt , discussed case CTA PULm : neg for PE 9. Hypothyroidism/ Hyperthyroidism patient has history of hyperthyroidism , was on Methimazole and noticed to had developed hypothyroidism so Methimazole was d/c and she was started on Po levothyroxine this admission , TSH then went down and Metrhimazole restarted Methimazole 5 mg po daily restarted as discussed with Dr Vu 10. Anemia, chronic dis monitor anemia work up showed depleted iron stores Venofer IV given s/p 2 units PRBC transfusion 11. Right cephalic vein thrombosis ( superficial vein) no need for therapeutic anticoag 12.Thrombocytopenia improving Most likely related to bone marrow suppression and multiple medication use Continue monitoring 13.DVT ppx on lovenox
--- NOTE | 2016-07-24 15:46 | PN ---
DATE: 07/24/2016 ROOM: 434 This is a 66-year-old female with recent uncontrolled thyroid fluctuations presenting initially with hypothyroidism and now has reverted to hyperthyroidism, currently on a low dose medical therapy as gi radha. She also has been managed here for acute exacerbation of chronic obstructive pulmonary disease and supervening congestive heart failure, and is being followed closely in the ICU for hemodynamic mo nitoring. Her latest chemistries showed a BUN of 12, sodium 131, potassium 4.4, chloride 96, CO2 35, glucose 98 , and creatinine 0.3. So, at this time, her thyroid levels have shown a T4 of 3.83 which is low normal related to the hypoa lbuminemia, and low normal levothyroxine binding globulin causing a falsely low total T4 level as not ed. Her TSH is 1.06 and so she remains clinically and biochemically euthyroid at this time. So will continue the Tapazole given as 5 mg once daily as ordered. Will titrate incrementally as indicated to optimize metabolic control. Will follow. Polly Vu MD cc: [id number] TT: 07/24/2016 15:46:21 Confirmation # [id number] Dictation # [id number] mn
[2016-07-25] MEDS: Nitroglycerin 2% 1GM UD TOP SCH ×4 (05:00→21:44)
[2016-07-25] MEDS: Albuterol-Ipratrop 3 mg / 0.5 (3 ml) UD INH SCH ×4 (07:30→19:48)
--- NOTE | 2016-07-25 07:34 | CP.CCUPN ---
CCU Subjective - Physician Review Events Since Last Encounter (Free Text): 07/25/16 07:34 Patient awake, on ventilator through tracheostomy, on CPAP with PS 5, PEEP 5, FIO2 50%, on NG feeding, no pressors, events reviewed CCU Objective - Vital Signs / Intake & Output Intake and Output (Last 8hrs): Intake & Output 07/24/16 07/25/16 07/25/16 22:59 06:59 14:59 Intake Total 1040 260 Output Total 1930 165 Balance -890 95 Intake: Intake, Piggyback 400 100 Tube Feeding 640 160 Output: Gastric Amount 0 0 Stomach 0 0 Urine 0 165 Urethral (Gutierrez) 1930 165 Other: # Bowel Movements 0 0 - Physical Exam Head: Positive for: Atraumatic, Swelling (R mandible, improving). Negative for : Ecchymosis Pupils: Positive for: PERRL. Negative for: Sluggish, Non-Reactive Extroacular Muscles: Negative for: Gaze Palsy, Entrapment Conjunctiva: Positive for: Normal Mouth: Positive for: Dry Pharnyx: Positive for: Normal Nose (External): Positive for: Atraumatic Nose (Internal): Positive for: Normal Inspection Neck: Positive for: Trachea Midline, Other (tracheotomy, clean). Negative for: MIDLINE TENDERNESS, Paraspinal Tenderness, JVD, Lymphadenopathy, Bruit Respiratory/Chest: Positive for: Good Air Exchange, Decreased Breath Sounds, Rhonchi (moderate). Negative for: Accessory Muscle Use, Wheezes Cardiovascular: Positive for: Normal S1, S2, Peripheal Pulses Present, Tachycardic. Negative for: Murmurs, Irregular Rhythm Abdomen: Positive for: Normal Bowel Sounds. Negative for: Tenderness, Distention Upper Extremity: Positive for: NORMAL PULSES, Capillary Refill < 2s, Other (L arm presents w/o edema, normal pulses; Rt arm edema). Negative for: Cyanosis, Tenderness Lower Extremity: Positive for: Edema, NORMAL PULSES. Negative for: CALF TENDERNESS Neurological: Positive for: Other (tracheotomy, CPAP, responsive to loud voice) Skin: Positive for: Warm, Dry, Normal Color Psychiatric: Positive for: Alert, Oriented x 3 - Medications Active Medications: Active Medications Generic Name Dose Route Start Last Admin Trade Name Freq PRN Reason Stop Dose Admin Albuterol/Ipratropium 3 ml 07/19/16 12:00 07/24/16 19:52 Duoneb 3 Mg/0.5 Mg (3 Ml) Ud INH 3 ml RQID ANDREAS Administration Alprazolam 0.5 mg 07/21/16 17:45 07/25/16 00:53 Xanax PO 0.5 mg Q8 ANDREAS Administration Anastrozole 1 mg 07/07/16 09:00 07/24/16 09:52 Arimidex 1 Mg Tab PO 1 mg DAILY [facility]RE[facility] Administration Famotidine 40 mg 07/22/16 09:00 07/24/16 09:43 Pepcid PO 40 mg DAILY [facility] Administration Furosemide 20 mg 07/18/16 10:30 07/21/16 08:50 Lasix IVP Not Given DAILY [facility] Gabapentin 600 mg 07/06/16 17:00 07/25/16 00:25 Neurontin PO 600 mg Q8 [facility]RE[facility] Administration Haloperidol Lactate 5 mg 07/21/16 17:45 07/21/16 17:39 Haldol IVP 5 mg ONCE [facility] Administration Haloperidol Lactate 5 mg 07/22/16 08:15 07/22/16 08:25 Haldol IVP 5 mg ONCE [facility] Administration Linezolid 300 mls @ 300 mls/hr 07/06/16 21:00 07/24/16 21:43 Zyvox 600mg/300ml D5w IVPB 300 mls/hr Q12 [facility] Administration Methylprednisolone 30 mg/ 50 mls @ 100 mls/hr 07/22/16 09:00 07/24/16 09:40 Sodium Chloride IV 100 mls/hr DAILY [facility] Administration Phenylephrine HCl 20 mg/ 252 mls @ 30.24 mls/hr 07/22/16 12:30 Sodium Chloride IV .Q8H20M ANDREAS Protocol 40 MCG/MIN Ceftazidime 1 gm/ Sodium 100 mls @ 200 mls/hr 07/24/16 17:00 07/25/16 00:18 Chloride IVPB 200 mls/hr Q8 [facility]RE[facility] Administration Lactobacillus Acidophilus 1 cap 07/06/16 17:00 07/24/16 09:42 Bacid Acidophilus PO 1 cap BID [facility] Administration Loperamide HCl 2 mg 07/21/16 13:14 07/23/16 09:16 Imodium PO 2 mg QID PRN Administration Diarrhea Methimazole 5 mg 07/14/16 09:00 07/24/16 09:42 Tapazole PO 5 mg DAILY [facility] Administration Metoprolol Tartrate 12.5 mg 07/22/16 09:00 07/24/16 21:48 Lopressor PO 12.5 mg Q12 [facility]RE[facility] Administration Multi-Ingredient Cream 1 applic 07/06/16 17:00 07/24/16 17:26 Hydrocerin Cream TOP 1 applic BID [facility]RE[facility] Administration Nitroglycerin 1 in 07/06/16 16:00 07/25/16 05:00 Nitro-Bid 2% Oint TOP 1 in Q6 [facility] Administration Spironolactone 25 mg 07/07/16 09:00 07/24/16 09:43 Aldactone PO 25 mg DAILY [facility] Administration Trimethoprim/Sulfamethoxazole 20 ml 07/17/16 21:00 07/24/16 21:46 Sulfatrim Pediatric Susp PO 20 ml Q12 [facility] Administration Verapamil HCl 180 mg 07/21/16 18:00 07/24/16 09:42 Calan Sr Tab PO 180 mg DAILY [facility] Administration Assessment/Plan - Assessment and Plan (Free Text) Assessment: A/P respiratory failure, COPD, CHF, sepsis, hyperthyroid, anemia, anxiety - Ventilatory support - Weaning as tolerated - Pulmonary toilets - Continue meds - Pending PEG Critical care 35 min
[2016-07-25] MEDS: Lactobacillus Acidophilus 500 MU Cap PO SCH ×2 (08:10→17:26)
[2016-07-25] MEDS: Verapamil 180 mg ER Tab PO SCH (08:10)
[2016-07-25] MEDS: Famotidine 40 MG/5 ML PO SCH (08:12)
[2016-07-25] MEDS: Tmp-Smz 200-40mg/5 ml Oral Sus(120 ml) PO SCH ×2 (08:12→20:15)
[2016-07-25] MEDS: methIMAzole 5 MG TAB PO SCH (08:13)
[2016-07-25] MEDS: Linezolid 600 mg in D5W 300 ml 300 ML IVPB SCH ×2 (08:16→20:12)
[2016-07-25] MEDS: methylPREDNISolone 30 MG in Sodium Chloride 0.9% 50 ML IV SCH (08:16)
[2016-07-25] MEDS: Hydrocerin CREAM TOP SCH ×2 (08:21→17:31)
[2016-07-25 09:14] LABS: BASO % 0.1 % (0.0-2.0); HEMATOCRIT 35.2 % (34.0-47.0); LYMPH # 0.3 K/uL (1.0-4.3); LYMPH % 4.4 % (20.0-40.0); MEAN CELL VOLUME 89.5 fl (81.0-99.0); MEAN CORPUSCULAR HGB CONC 31.3 g/dL (33.0-37.0); MEAN PLATELET VOLUME 7.8 fl (7.2-11.7); MONO # 0.8 K/uL (0.0-0.8); MONO % 11.2 % (0.0-10.0); NEUT # 6.3 K/uL (1.8-7.0); NEUT % 84.3 % (50.0-75.0); NRBC % 0.2 % (0.0-0.0); RED CELL DISTRIBUTION WIDTH 23.1 % (11.5-14.5); WHITE BLOOD COUNT 7.4 K/uL (4.8-10.8)
--- NOTE | 2016-07-25 09:37 | CP.PCM.PN ---
Subjective - Date & Time of Evaluation Date of Evaluation: 07/25/16 Time of Evaluation: 09:30 - Subjective Subjective: No fever Pain controlled Pt looks comfortable s/p Trach on Vent ( CPAP mode) NGT in place - tolerating feeding no CP no SOB no diarrhea- had 1 BM yesterday Objective - Vital Signs/Intake and Output Vital Signs (last 24 hours): Temp Pulse Resp BP Pulse Ox 97.6 F 91 H 19 124/68 100 07/25/16 07:42 07/25/16 08:11 07/25/16 07:42 07/25/16 08:11 07/25/16 07:42 Intake and Output: 07/25/16 07/25/16 06:59 18:59 Intake Total 880 Output Total 1120 Balance -240 - Medications Medications: Current Medications Albuterol/Ipratropium (Duoneb 3 Mg/0.5 Mg (3 Ml) Ud) 3 ml INH RQID [facility] Last Admin: 07/25/16 07:30 Dose: 3 ml Alprazolam (Xanax) 0.5 mg PO Q8 [facility] Last Admin: 07/25/16 08:14 Dose: 0.5 mg Anastrozole (Arimidex 1 Mg Tab) 1 mg PO DAILY [facility] Last Admin: 07/25/16 08:08 Dose: 1 mg Famotidine (Pepcid) 40 mg PO DAILY [facility] Last Admin: 07/25/16 08:12 Dose: 40 mg Furosemide (Lasix) 20 mg IVP DAILY [facility] Last Admin: 07/21/16 08:50 Dose: Not Given Gabapentin (Neurontin) 600 mg PO Q8 [facility] Last Admin: 07/25/16 08:11 Dose: 600 mg Haloperidol Lactate (Haldol) 5 mg IVP ONCE [facility] Last Admin: 07/21/16 17:39 Dose: 5 mg Haloperidol Lactate (Haldol) 5 mg IVP ONCE [facility] Last Admin: 07/22/16 08:25 Dose: 5 mg Linezolid (Zyvox 600mg/300ml D5w) 300 mls @ 300 mls/hr IVPB Q12 [facility] Last Admin: 07/25/16 08:16 Dose: 300 mls/hr Methylprednisolone 30 mg/ (Sodium Chloride) 50 mls @ 100 mls/hr IV DAILY [facility] Last Admin: 07/25/16 08:16 Dose: 100 mls/hr Phenylephrine HCl 20 mg/ (Sodium Chloride) 252 mls @ 30.24 mls/hr IV .Q8H20M [facility]; 40 MCG/MIN PRN Reason: Protocol Ceftazidime 1 gm/ Sodium (Chloride) 100 mls @ 200 mls/hr IVPB Q8 [facility] Last Admin: 07/25/16 08:15 Dose: 200 mls/hr Lactobacillus Acidophilus (Bacid Acidophilus) 1 cap PO BID [facility] Last Admin: 07/25/16 08:10 Dose: 1 cap Loperamide HCl (Imodium) 2 mg PO QID PRN PRN Reason: Diarrhea Last Admin: 07/23/16 09:16 Dose: 2 mg Methimazole (Tapazole) 5 mg PO DAILY [facility] Last Admin: 07/25/16 08:13 Dose: 5 mg Metoprolol Tartrate (Lopressor) 12.5 mg PO Q12 [facility] Last Admin: 07/25/16 08:11 Dose: 12.5 mg Multi-Ingredient Cream (Hydrocerin Cream) 1 applic TOP BID [facility] Last Admin: 07/25/16 08:21 Dose: 1 applic Nitroglycerin (Nitro-Bid 2% Oint) 1 in TOP Q6 [facility] Last Admin: 07/25/16 05:00 Dose: 1 in Spironolactone (Aldactone) 25 mg PO DAILY [facility] Last Admin: 07/25/16 08:07 Dose: 25 mg Trimethoprim/Sulfamethoxazole (Sulfatrim Pediatric Susp) 20 ml PO Q12 [facility] Last Admin: 07/25/16 08:12 Dose: 1 ml Verapamil HCl (Calan Sr Tab) 180 mg PO DAILY [facility] Last Admin: 07/25/16 08:10 Dose: 180 mg - Labs Labs: 07/24/16 06:02 07/24/16 06:02 PT 12.0 SECONDS (9.6-11.2) H 07/19/16 04:20 INR 1.15 (0.92-1.08) H 07/19/16 04:20 APTT 27.7 SECONDS (23.3-32.5) 07/09/16 08:00 - Constitutional Appears: Not in any Distress, Older Than Stated Age, Chronically Ill s/p Tracheostomy on Vent NGT in place - Head Exam Head Exam: NORMAL INSPECTION, NORMOCEPHALIC Right facial abscess wound now almost flat with very minimal drainage, very sl tender - Eye Exam Eye Exam: EOMI, Normal appearance Pupil Exam: NORMAL ACCOMODATION - ENT Exam ENT Exam: Mucous Membranes Dry, Normal External Ear Exam NGT in place - Neck Exam Neck Exam: Full ROM. absent: Meningismus s/p Trach - Respiratory Exam Respiratory Exam: Accessory Muscle Use, Chest Wall Tenderness, Decreased Breath Sounds, Rhonchi, Respiratory Distress - Cardiovascular Exam Cardiovascular Exam: Tachycardia, REGULAR RHYTHM, +S1, +S2 - GI/Abdominal Exam GI & Abdominal Exam: Soft, Normal Bowel Sounds. absent: Tenderness NGT in place - Extremities Exam Extremities Exam: absent: Calf Tenderness, Normal Capillary Refill Additional comments: Right arm edema right shoulder post surgical deformity - Neurological Exam Additional comments: Pt is intubated awake oriented moves all extremities - Psychiatric Exam Psychiatric exam: Flat Affect - Skin Additional comments: noted ecchymosis denise on chest and LE Assessment and Plan (1) Acute and chronic respiratory failure with hypercapnia Status: Acute (2) Osteomyelitis of mandible Status: Acute (3) Hypothyroidism Status: Acute (4) Acute exacerbation of chronic obstructive pulmonary disease (COPD) Status: Acute (5) HTN (hypertension) Status: Chronic (6) Hx of breast cancer Status: Chronic (7) Acute exacerbation of CHF (congestive heart failure) Status: Acute (8) Hypokalemia Status: Acute (9) Facial abscess Status: Acute (10) DVT prophylaxis Status: Acute - Assessment and Plan (Free Text) Assessment: 66 y/o female PMH COPD, bilateral breast CA s/p chemo and radiation 8 years ago , HTN, Hyperthyroidism presented with 2 week history of worsening bilateral lower extremity swelling and weakness, unable to get herself up to her walker. Patient has mild dyspnea at baseline. She also came with a large right facial swelling for almost 2 weeks and was taking PO antibiotics prescribed by her dentist. Patient was admitted for generalized weakness , Hyponatremia and Facial abscess. She was started on IV antibiotics for facial abscess and Lasix IV with fluid restriction for LE edema. Maxillofacial Ct showed possible abscess accumulation. Evaluated by Oromaxillofacial surgeon and underwent Incision and drainage of abscess. Bone scan showed possible osteomyelitis During this hospitalization noted to have increased dyspnea at rest and more so with minimal activity, decreased air entry bilaterally and increased work of breathing. She was started on high flow O2, Higher doses of theophylline and IV hydrocortisone. CTA chest and LE doppler showed no DVT. She was transferred to ICU for close monitoring for tachypnea and tachycardia. She underwent IR drainage on 06/24 of right facial abscess due to re accumulation and cultures came positive for VRE and bria. Antibiotics were changed to Zyvox , Meropenem and Fluconazone. Despite drainage and IV antibiotics she still kept complaining of pain to right supramandibular area with increased swelling. Repeat CT showed abscess formation. Patient underwent I&D in OR 07/06/16 with cynthia drainage placement. She continues to have episodes of resp distress - tachypneic , tachycardic , with chest congestion , unable to expectorate despite high flow O2 therapy, Duonebs and Corticosteroids. 07/07/16 underwent Bronchoscopy. BAL showed Stenotrophomonas Maltophilia. Antibiotics changed to IV bactrim, Fortaz, Zyvox and Fluconazole. On 07/09 she developed severe respiratory distress with hypoxemia requiring intubation . Patient failed multiple attempts of extubation and at present s/p trache placement 07/19. Plan for poss d/c to LTACH once peg is placed 1. Acute on Chronic Respiratory Failure with hypercapnea Multiple trials of intubation and extubation , failed extubation s/p Tracheostomy 07/19 Pulmonary: Dr Benz, is following pt closely on CPAP today and tolerating so far. Air leak noted that was fixed with repositioning of trache CXR shows improvement of RLL infiltrate For possible repeat bronchoscopy as per pulmonary to address the air leak Bronchoscopy 07/07/16 with BAL growing Stenotrophomonas maltophilla. On Bactrim, Fortaz, and Zyvox as per ID on Methylprednisone 30 mg Iv q24, Xopenex, albuterol and tiotropium inhaler Plan for PEG placement tomorrow 2. Facial abscess with mandibular Osteomyelitis s/p drainage of abscess and I& D s/p Incision and drainage on 06/[address] Anderson maxillofacial surgeon and rpt I&D 07/06 pathology report showed inflammatory cells, no malignancy Nuclear Bone Scan suggestive of osteomyelitis initial cultures were with no growth ID consult with Dr Obrien on board managing antibiotics based on cultures reported Due to increased swelling and pain patient underwent drainage of facial collection by IR on 06/24 and 24 ml yellow fluid obtained. Cultures reported as VRE and Bria On Zyvox , Bactrim, Fortaz ( received 6 wks total IV abx ) - discussed with Dr Manocchio - rec to continue IV abx for now Discontinued Fluconazole due to abnormal LFT-s At present on bactrim , Fortaz,and Zyvox 3. Recurrent Chest Pain episodes , prob sec to Anxiety, ACS ruled out with recurrent pressure like chest pain on and off cardiology consulted Dr. Jus Terry -- negative and EKG showed no ST-T wave changes Most likely atypical chest pain related to anxiety , and COPD, no signs of ischemia Pain mgt consulted- Dr Verdugo Ativan prn Fentanyl drip discontinued 4. Bilateral LE edema sec to CHF exacerbation with diastolic dysfxn slowly improving edema to LE but with seeping thigh edema Echo showed EF 40-45 % and dilated RV continue fluid restriction Promote ambulation once better cont Aldactone 5. Hypokalemia multifactorial diuretic induced , Albuterol, Hypothyroidism and GI loss off Lasix, on Aldactone Continue KCl runs and PO replacement as needed Nephro consult appreciated CT of abd showed no adrenal mass 6 .Hyponatremia most likely secondary to solute depletion and infection Continue fluid restriction 7.Hx breast ca, bilateral stable, s/p bilateral mastectomy continue Arimidex 8. Tachycardia/SVT -- multifactorial Hx of HTN was on verapamil at home , cont low dose Verapamil Started low dose Metoprolol 12.5 mg po bid continue monitoring patient with high levels of anxiety and pain called Dr Verdugo for Pain mgt , discussed case CTA PULm : neg for PE 9. Hypothyroidism/ Hyperthyroidism patient has history of hyperthyroidism , was on Methimazole and noticed to had developed hypothyroidism so Methimazole was d/c and she was started on Po levothyroxine this admission , TSH then went down and Metrhimazole restarted Methimazole 5 mg po daily restarted as discussed with Dr Vu 10. Anemia, chronic dis monitor anemia work up showed depleted iron stores Venofer IV given s/p 2 units PRBC transfusion 11. Right cephalic vein thrombosis ( superficial vein) no need for therapeutic anticoag 12.Thrombocytopenia improving Most likely related to bone marrow suppression and multiple medication use Continue monitoring 13.DVT ppx on lovenox
[2016-07-25 09:43] LABS: ALB/GLOB RATIO 1.1 (1.0-2.1); ALKALINE PHOSPHATASE 135 U/L (38-126); ALT/SGPT 69 U/L (9-52); AST/SGOT 22 U/L (14-36); BILIRUBIN,TOTAL 0.2 mg/dl (0.2-1.3); BLOOD UREA NITROGEN 12 mg/dl (7-17); CALCIUM 9.2 mg/dL (8.4-10.2); CARBON DIOXIDE 37 mmol/L (22-30); CHLORIDE 95 mmol/L (98-107); GFR AFRICAN-AMERICAN > 60; GLUCOSE,RANDOM 92 mg/dL (65-105); POTASSIUM 4.7 MMOL/L (3.6-5.0); SODIUM 134 mmol/l (132-148); TOTAL PROTEIN 5.1 G/DL (6.3-8.2)
--- NOTE | 2016-07-25 14:12 | PN ---
DATE: 07/25/2016 ROOM: 434 ICU. SUBJECTIVE: This is a 66-year-old female with supervening congestive heart failure and acute exacerb ation of COPD, now being followed closely for metabolic management. She is still ongoing IV steroid therapy as given and noted. Her latest chemistry showed a BUN of 12, sodium 134, potassium 4.7, chlo ride 95, CO2 of 37, glucose 92 and creatinine 0.3. Her latest thyroid studies showed a T4 of 3.83 wi th a TSH of 1.06, which is actually perfectly normal at this time, and she remains biochemically and clinically euthyroid as noted. The low normal total T4 is related to the hypoalbuminemia with lower TBG levels as ordered. We will follow with you. Polly Vu MD cc: [id number] TT: 07/25/2016 14:12:23 Confirmation # [id number] Dictation # [id number] mn
[2016-07-26] MEDS: Nitroglycerin 2% 1GM UD TOP SCH ×4 (04:04→21:25)
[2016-07-26 05:37] LABS: BLOOD UREA NITROGEN 11 mg/dl (7-17); CALCIUM 9.1 mg/dL (8.4-10.2); CHLORIDE 93 mmol/L (98-107); GFR AFRICAN-AMERICAN > 60; GLUCOSE,RANDOM 85 mg/dL (65-105); POTASSIUM 4.5 MMOL/L (3.6-5.0); SODIUM 140 mmol/l (132-148)
[2016-07-26 05:54] LABS: CARBON DIOXIDE 38 mmol/L (22-30)
[2016-07-26 05:58] LABS: HEMATOCRIT 34.6 % (34.0-47.0); MEAN CELL VOLUME 88.5 fl (81.0-99.0); MEAN CORPUSCULAR HEMOGLOBIN 28.1 pg (27.0-31.0); MEAN CORPUSCULAR HGB CONC 31.7 g/dL (33.0-37.0); PLATELET COUNT 166 K/uL (130-400); RED CELL DISTRIBUTION WIDTH 23.4 % (11.5-14.5); WHITE BLOOD COUNT 8.7 K/uL (4.8-10.8)
[2016-07-26] MEDS: Albuterol-Ipratrop 3 mg / 0.5 (3 ml) UD INH SCH ×4 (07:54→20:03)
[2016-07-26 08:13] LABS: NEUTROPHIL 88 % (42-75); NUCLEATED RED BLOOD CELL 1 % (0-0); REACTIVE LYMPHOCYTES 4 % (0-0); TOTAL CELLS COUNTED 100
[2016-07-26] MEDS: methylPREDNISolone 30 MG in Sodium Chloride 0.9% 50 ML IV SCH (08:46)
[2016-07-26] MEDS: Linezolid 600 mg in D5W 300 ml 300 ML IVPB SCH ×2 (08:48→20:34)
[2016-07-26] MEDS: Tmp-Smz 200-40mg/5 ml Oral Sus(120 ml) PO SCH ×2 (09:00→20:34)
[2016-07-26] MEDS: Lactobacillus Acidophilus 500 MU Cap PO SCH ×2 (09:00→17:13)
[2016-07-26] MEDS: Hydrocerin CREAM TOP SCH ×2 (09:00→17:17)
[2016-07-26] MEDS: Verapamil 180 mg ER Tab PO SCH (09:00)
[2016-07-26] MEDS: methIMAzole 5 MG TAB PO SCH (09:00)
[2016-07-26] MEDS: Famotidine 40 MG/5 ML PO SCH (09:00)
--- NOTE | 2016-07-26 10:04 | CP.PCM.PN ---
Subjective - Date & Time of Evaluation Date of Evaluation: 07/26/16 Time of Evaluation: 09:52 - Subjective Subjective: Seen on morning rounds. Remains on CPAP/PS 5/5 since 07/23/16. Appears to be tolerating this mode of ventilation rather well. Receiving alprazolam 0.25MG Q8H ATC with good results. Vitals have been stable, afebrile, minimal tachycardia. Awake, calm, cooperative, interactive. Awaiting PEG tube placement which will hopefully be done today. Dependant edema is still present, stable. No cyanosis. Trach site is clean and dry. Small amount of whitish secretions expressed from the buccal drain site. No dullness on palpation of the anterior chest wall. No subcutaneous emphysema palpated. Breath sounds are present bilaterally, diminished, w/o wheeze. Breath sounds are very diminished posteriorly with faint bronchial character on the right. Small volume of thin florez secretions from tracheostomy. PEG tube placement. Physical therapy. Maybe drop to CPAP only @ 5CM, continue 50% O2 after PEG. PCXR requested. Antibiotics are to be continued for the present time. Objective - Vital Signs/Intake and Output Vital Signs (last 24 hours): Temp Pulse Resp BP Pulse Ox 97.6 F 104 H 17 101/70 100 07/26/16 07:41 07/26/16 07:41 07/26/16 07:41 07/26/16 07:41 07/26/16 07:41 Intake and Output: 07/25/16 07/26/16 23:59 11:59 Intake Total 600 0 Output Total 700 1200 Balance -100 -1200 - Medications Medications: Current Medications Albuterol/Ipratropium (Duoneb 3 Mg/0.5 Mg (3 Ml) Ud) 3 ml INH RQID [facility] [place] Last Admin: 07/26/16 07:54 Dose: 3 ml Alprazolam (Xanax) 0.5 mg PO Q8 [facility] [place] Last Admin: 07/25/16 23:18 Dose: 0.5 mg Anastrozole (Arimidex 1 Mg Tab) 1 mg PO DAILY [facility] [place] Last Admin: 07/25/16 08:08 Dose: 1 mg Famotidine (Pepcid) 40 mg PO DAILY [facility] [place] Last Admin: 07/25/16 08:12 Dose: 40 mg Gabapentin (Neurontin) 600 mg PO Q8 [facility] [place] Last Admin: 07/25/16 23:21 Dose: 600 mg Haloperidol Lactate (Haldol) 5 mg IVP ONCE [facility] [place] Last Admin: 07/21/16 17:39 Dose: 5 mg Haloperidol Lactate (Haldol) 5 mg IVP ONCE [facility] [place] Last Admin: 07/22/16 08:25 Dose: 5 mg Linezolid (Zyvox 600mg/300ml D5w) 300 mls @ 300 mls/hr IVPB Q12 [facility] [place] Last Admin: 07/26/16 08:48 Dose: 300 mls/hr Methylprednisolone 30 mg/ (Sodium Chloride) 50 mls @ 100 mls/hr IV DAILY [facility] [place] Last Admin: 07/26/16 08:46 Dose: 100 mls/hr Phenylephrine HCl 20 mg/ (Sodium Chloride) 252 mls @ 30.24 mls/hr IV .Q8H20M [facility]; 40 MCG/MIN PRN Reason: Protocol Ceftazidime 1 gm/ Sodium (Chloride) 100 mls @ 200 mls/hr IVPB Q8 [facility] [place] Last Admin: 07/26/16 08:47 Dose: 200 mls/hr Lactobacillus Acidophilus (Bacid Acidophilus) 1 cap PO BID [facility] [place] Last Admin: 07/25/16 17:26 Dose: 1 cap Loperamide HCl (Imodium) 2 mg PO QID PRN PRN Reason: Diarrhea Last Admin: 07/23/16 09:16 Dose: 2 mg Methimazole (Tapazole) 5 mg PO DAILY [facility] [place] Last Admin: 07/25/16 08:13 Dose: 5 mg Metoprolol Tartrate (Lopressor) 12.5 mg PO Q12 [facility] [place] Last Admin: 07/25/16 20:14 Dose: 12.5 mg Multi-Ingredient Cream (Hydrocerin Cream) 1 applic TOP BID [facility] [place] Last Admin: 07/25/16 17:31 Dose: 1 applic Nitroglycerin (Nitro-Bid 2% Oint) 1 in TOP Q6 [facility] [place] Last Admin: 07/26/16 04:04 Dose: Not Given Spironolactone (Aldactone) 25 mg PO DAILY [facility] [place] Last Admin: 07/25/16 08:07 Dose: 25 mg Trimethoprim/Sulfamethoxazole (Sulfatrim Pediatric Susp) 20 ml PO Q12 [facility] [place] Last Admin: 07/25/16 20:15 Dose: 20 ml Verapamil HCl (Calan Sr Tab) 180 mg PO DAILY [facility] [place] Last Admin: 07/25/16 08:10 Dose: 180 mg - Labs Labs: 07/26/16 04:20 07/26/16 04:20 PT 12.0 SECONDS (9.6-11.2) H 07/19/16 04:20 INR 1.15 (0.92-1.08) H 07/19/16 04:20 APTT 27.7 SECONDS (23.3-32.5) 07/09/16 08:00 Assessment and Plan (1) Acute bronchitis with chronic obstructive pulmonary disease (COPD) Status: Acute (2) Hyperthyroidism Status: Chronic (3) Abscess Status: Resolved (4) Hypokalemia Status: Resolved (5) Osteomyelitis Assessment & Plan: Right mandible with VRE on abscess culture; drained. Re-cultured this morning. Status: Acute - Assessment and Plan (Free Text) Plan: This patient will likely require extensive rehab, and may still need LTAC depending on ventilatory status. Will need at least 1.5 weeks more of antibiotic therapy.
[2016-07-26] MEDS ORDERED: Fentanyl Citrate 2,500 MCG in Dextrose 5% In Water 200 ML IV SCH (10:15)
--- NOTE | 2016-07-26 10:51 | CP.CCUPN ---
<Heladio Louie T - Last Filed: 07/26/16 10:46> CCU Subjective - Physician Review Subjective (Free Text): Pt is seen and examined at bedside in the ICU. Pt is alert and awake on CPAP via tracheotomy. Denies overnight complaints or events. Denies f/c/n/v/d/c, headaches, chest pain, sob, dyspnea, abd pain, or myalgias. CCU Objective - Vital Signs / Intake & Output Vital Signs (Last 4 hours): Vital Signs Temp Pulse Resp BP Pulse Ox 07/26/16 07:41 97.6 F 104 H 17 101/70 100 Intake and Output (Last 8hrs): Intake & Output 07/25/16 07/26/16 07/26/16 22:59 06:59 14:59 Intake Total 420 180 Output Total 700 1200 Balance -280 -1020 Weight 112 lb Intake: IV 0 Intake, Piggyback 300 100 Oral 0 Tube Feeding 120 80 Output: Urine 700 1200 Urethral (Gutierrez) 700 1200 - Physical Exam Head: Positive for: Atraumatic. Negative for: Ecchymosis Pupils: Positive for: PERRL. Negative for: Sluggish, Non-Reactive Extroacular Muscles: Positive for: EOMI. Negative for: Gaze Palsy, Entrapment Conjunctiva: Positive for: Normal Mouth: Positive for: Dry Neck: Positive for: Trachea Midline, Other (tracheotomy, clean). Negative for: MIDLINE TENDERNESS, Paraspinal Tenderness, JVD, Lymphadenopathy, Bruit Respiratory/Chest: Positive for: Good Air Exchange, Decreased Breath Sounds. Negative for: Accessory Muscle Use, Wheezes Cardiovascular: Positive for: Normal S1, S2, Peripheal Pulses Present, Tachycardic. Negative for: Murmurs, Irregular Rhythm Abdomen: Positive for: Normal Bowel Sounds. Negative for: Tenderness, Distention Upper Extremity: Positive for: NORMAL PULSES, Capillary Refill < 2s, Other (L arm presents w/o edema, normal pulses; Rt arm edema). Negative for: Cyanosis, Tenderness Lower Extremity: Positive for: Edema, NORMAL PULSES. Negative for: CALF TENDERNESS Neurological: Positive for: Other (tracheotomy, CPAP, aao x3) Skin: Positive for: Warm, Dry, Normal Color Psychiatric: Positive for: Alert, Oriented x 3 - Medications Active Medications: Active Medications Generic Name Dose Route Start Last Admin Trade Name Freq PRN Reason Stop Dose Admin Albuterol/Ipratropium 3 ml 07/19/16 12:00 07/26/16 07:54 Duoneb 3 Mg/0.5 Mg (3 Ml) Ud INH 3 ml RQID ANDREAS Administration Alprazolam 0.5 mg 07/21/16 17:45 07/25/16 23:18 Xanax PO 0.5 mg Q8 ANDREAS Administration Anastrozole 1 mg 07/07/16 09:00 07/25/16 08:08 Arimidex 1 Mg Tab PO 1 mg DAILY ANDREAS Administration Famotidine 40 mg 07/22/16 09:00 07/25/16 08:12 Pepcid PO 40 mg DAILY ANDREAS Administration Gabapentin 600 mg 07/06/16 17:00 07/25/16 23:21 Neurontin PO 600 mg Q8 ANDREAS Administration Haloperidol Lactate 5 mg 07/21/16 17:45 07/21/16 17:39 Haldol IVP 5 mg ONCE ANDREAS Administration Haloperidol Lactate 5 mg 07/22/16 08:15 07/22/16 08:25 Haldol IVP 5 mg ONCE ANDREAS Administration Linezolid 300 mls @ 300 mls/hr 07/06/16 21:00 07/26/16 08:48 Zyvox 600mg/300ml D5w IVPB 300 mls/hr Q12 ANDREAS Administration Methylprednisolone 30 mg/ 50 mls @ 100 mls/hr 07/22/16 09:00 07/26/16 08:46 Sodium Chloride IV 100 mls/hr DAILY ANDREAS Administration Phenylephrine HCl 20 mg/ 252 mls @ 30.24 mls/hr 07/22/16 12:30 Sodium Chloride IV .Q8H20M ANDREAS Protocol 40 MCG/MIN Ceftazidime 1 gm/ Sodium 100 mls @ 200 mls/hr 07/24/16 17:00 07/26/16 08:47 Chloride IVPB 200 mls/hr Q8 ANDREAS Administration Fentanyl Citrate 2,500 mcg/ 250 mls @ 0 mls/hr 07/26/16 10:15 Dextrose IV .Q0M ANDREAS Protocol Per Protocol Lactobacillus Acidophilus 1 cap 07/06/16 17:00 07/25/16 17:26 Bacid Acidophilus PO 1 cap BID ANDREAS Administration Loperamide HCl 2 mg 07/21/16 13:14 07/23/16 09:16 Imodium PO 2 mg QID PRN Administration Diarrhea Methimazole 5 mg 07/14/16 09:00 07/25/16 08:13 Tapazole PO 5 mg DAILY ANDREAS Administration Metoprolol Tartrate 12.5 mg 07/22/16 09:00 07/25/16 20:14 Lopressor PO 12.5 mg Q12 ANDREAS Administration Multi-Ingredient Cream 1 applic 07/06/16 17:00 07/25/16 17:31 Hydrocerin Cream TOP 1 applic BID ANDREAS Administration Nitroglycerin 1 in 07/06/16 16:00 07/26/16 04:04 Nitro-Bid 2% Oint TOP Not Given Q6 ANDREAS Spironolactone 25 mg 07/07/16 09:00 07/25/16 08:07 Aldactone PO 25 mg DAILY ANDREAS Administration Trimethoprim/Sulfamethoxazole 20 ml 07/17/16 21:00 07/25/16 20:15 Sulfatrim Pediatric Susp PO 20 ml Q12 ANDREAS Administration Verapamil HCl 180 mg 07/21/16 18:00 07/25/16 08:10 Calan Sr Tab PO 180 mg DAILY ANDREAS Administration - Patient Studies Lab Studies: Lab Studies 07/26/16 Range/Units 04:20 WBC 8.7 (4.8-10.8) K/uL RBC 3.91 (3.80-5.20) Mil/uL Hgb 11.0 L (12.0-16.0) g/dL Hct 34.6 (34.0-47.0) % MCV 88.5 (81.0-99.0) fl MCH 28.1 (27.0-31.0) pg MCHC 31.7 L (33.0-37.0) g/dL RDW 23.4 H (11.5-14.5) % Plt Count 166 (130-400) K/uL Neutrophils % (Manual) 88 H (42-75) % Lymphocytes % (Manual) 3 L (20-50) % Reactive Lymphs % 4 H (0-0) % Monocytes % (Manual) 5 (0-10) % Nucleated RBC % 1 H (0-0) % Platelet Estimate Normal (NORMAL) Poikilocytosis (manual Slight Anisocytosis (manual) Slight Ovalocytes Slight Sodium 140 (132-148) mmol/l Potassium 4.5 (3.6-5.0) MMOL/L Chloride 93 L (98-107) mmol/L Carbon Dioxide 38 H (22-30) mmol/L Anion Gap 14 (10-20) BUN 11 (7-17) mg/dl Creatinine 0.2 L (0.7-1.2) mg/dL Est GFR ( Amer) > 60 Est GFR (Non-Af Amer) > 60 Random Glucose 85 (65-105) mg/dL Calcium 9.1 (8.4-10.2) mg/dL Laboratory Results - last 24 hr 07/26/16 04:20 WBC 8.7 RBC 3.91 Hgb 11.0 L Hct 34.6 MCV 88.5 MCH 28.1 MCHC 31.7 L RDW 23.4 H Plt Count 166 Neutrophils % (Manual) 88 H Lymphocytes % (Manual) 3 L Reactive Lymphs % 4 H Monocytes % (Manual) 5 Nucleated RBC % 1 H Platelet Estimate Normal Poikilocytosis (manual Slight Anisocytosis (manual) Slight Ovalocytes Slight Sodium 140 Potassium 4.5 Chloride 93 L Carbon Dioxide 38 H Anion Gap 14 BUN 11 Creatinine 0.2 L Est GFR ( Amer) > 60 Est GFR (Non-Af Amer) > 60 Random Glucose 85 Calcium 9.1 Review of Systems - Review of Systems Review of Systems: see HPI Critical Care Progress Note - Ventilator Checklist Head of Bed 30 Degrees: Yes Daily Sedation Vacation: Yes Daily Assessment of Readiness to Wean: Yes Daily Spontaneous Breathing Trial: Yes PUD Prophalyxis: Yes DVT Prophylaxis: Yes Oral Care with Chlorhexidine Gluconate {CHG}: Yes - Vent Settings MODE:: CPAP FIO2:: 50 PEEP:: 5 PRESSURE SUPPORT:: 5 - Nutrition Nutrition: Nutrition Category Date Time Status NPO Diet [DIET] Diets 07/26/16 Breakfast Active Assessment/Plan - Assessment and Plan (Free Text) Plan: 66 yo F w PMHx of HTN, COPD, bilateral Breast cancer, h/o Hyperthyroidism is admitted to ICU for sob/dyspnea w/in setting of copd exacerbation 1) Acute on chronic respiratory failure with hypercapnea; setting of COPD -Tracheotomy w CPAP/PS due to continued respiratory distress -Pt currently unable to eat, cannot go for swallow eval, therefore she is in need of PEG tube -PEG schedules for later today --CPAP: PS 5, PEEP 5, FiO2 50% -Abx therapy as per ID -Spironolactone 25mg PO Daily -Methylprednisolone 30mg IV Daily -Duoneb 3mL RQ4H PRN -f/u ABGs -f/u respiratory function 2) Acute exacerbation of Systolic CHF -Echo (06/14): LVEF 40-45 %; Dilated RV with mild/mod decrease RV function, diastolic inflow pattern is restrictive -Spironolactone 25mg PO Daily -f/u strict I&Os -f/u Daily Wt 3) Tachycardia -Verapamil 180mg PO Daily -Metoprolol 12.5mg PO Q12H -f/u Vitals 4) VRE (vancomycin resistant enterococcus) culture positive -mandible osteomyelitis wound Cx+ resulted: VRE -Linezolid 600mg IVPB Q12H 5) Chronic Pain -Presently asymptomatic 6) Anxiety -Xanax 0.5mg PO Q8H PRN 7) Hyperthyroidism -Methimazole 5mg PO BID 8) Anemia -Stable -h/h 10.3/32.1 this AM 9) DVT Prophylaxis -Lovenox 40mg SC Daily 10) PUD Prophylaxis -Pepcid 40mg PO Daily <Phoenix Miller - Last Filed: 07/26/16 13:40> CCU Objective - Vital Signs / Intake & Output Intake and Output (Last 8hrs): Intake & Output 07/25/16 07/26/16 07/26/16 22:59 06:59 14:59 Intake Total 420 180 Output Total 700 1200 Balance -280 -1020 Weight 112 lb Intake: IV 0 Intake, Piggyback 300 100 Oral 0 Tube Feeding 120 80 Output: Urine 700 1200 Urethral (Gutierrez) 700 1200 - Medications Active Medications: Active Medications Generic Name Dose Route Start Last Admin Trade Name Freq PRN Reason Stop Dose Admin Albuterol/Ipratropium 3 ml 07/19/16 12:00 07/26/16 11:15 Duoneb 3 Mg/0.5 Mg (3 Ml) Ud INH 3 ml RQID ANDREAS Administration Alprazolam 0.5 mg 07/21/16 17:45 07/25/16 23:18 Xanax PO 0.5 mg Q8 ANDREAS Administration Anastrozole 1 mg 07/07/16 09:00 07/25/16 08:08 Arimidex 1 Mg Tab PO 1 mg DAILY ANDREAS Administration Famotidine 40 mg 07/22/16 09:00 07/25/16 08:12 Pepcid PO 40 mg DAILY ANDREAS Administration Gabapentin 600 mg 07/06/16 17:00 07/25/16 23:21 Neurontin PO 600 mg Q8 ANDREAS Administration Haloperidol Lactate 5 mg 07/21/16 17:45 07/21/16 17:39 Haldol IVP 5 mg ONCE ANDREAS Administration Haloperidol Lactate 5 mg 07/22/16 08:15 07/22/16 08:25 Haldol IVP 5 mg ONCE ANDREAS Administration Linezolid 300 mls @ 300 mls/hr 07/06/16 21:00 07/26/16 08:48 Zyvox 600mg/300ml D5w IVPB 300 mls/hr Q12 ANDREAS Administration Methylprednisolone 30 mg/ 50 mls @ 100 mls/hr 07/22/16 09:00 07/26/16 08:46 Sodium Chloride IV 100 mls/hr DAILY ANDREAS Administration Ceftazidime 1 gm/ Sodium 100 mls @ 200 mls/hr 07/24/16 17:00 07/26/16 08:47 Chloride IVPB 200 mls/hr Q8 ANDREAS Administration Fentanyl Citrate 2,500 mcg/ 250 mls @ 0 mls/hr 07/26/16 10:15 Dextrose IV .Q0M ANDREAS Protocol Per Protocol Lactobacillus Acidophilus 1 cap 07/06/16 17:00 07/25/16 17:26 Bacid Acidophilus PO 1 cap BID ANDREAS Administration Loperamide HCl 2 mg 07/21/16 13:14 07/23/16 09:16 Imodium PO 2 mg QID PRN Administration Diarrhea Methimazole 5 mg 07/14/16 09:00 07/25/16 08:13 Tapazole PO 5 mg DAILY ANDREAS Administration Metoprolol Tartrate 12.5 mg 07/22/16 09:00 07/25/16 20:14 Lopressor PO 12.5 mg Q12 ANDREAS Administration Multi-Ingredient Cream 1 applic 07/06/16 17:00 07/25/16 17:31 Hydrocerin Cream TOP 1 applic BID ANDREAS Administration Nitroglycerin 1 in 07/06/16 16:00 07/26/16 04:04 Nitro-Bid 2% Oint TOP Not Given Q6 ANDREAS Spironolactone 25 mg 07/07/16 09:00 07/25/16 08:07 Aldactone PO 25 mg DAILY ANDREAS Administration Trimethoprim/Sulfamethoxazole 20 ml 07/17/16 21:00 07/25/16 20:15 Sulfatrim Pediatric Susp PO 20 ml Q12 ANDREAS Administration Verapamil HCl 180 mg 07/21/16 18:00 07/25/16 08:10 Calan Sr Tab PO 180 mg DAILY ANDREAS Administration - Patient Studies Lab Studies: Lab Studies 07/26/16 Range/Units 04:20 WBC 8.7 (4.8-10.8) K/uL RBC 3.91 (3.80-5.20) Mil/uL Hgb 11.0 L (12.0-16.0) g/dL Hct 34.6 (34.0-47.0) % MCV 88.5 (81.0-99.0) fl MCH 28.1 (27.0-31.0) pg MCHC 31.7 L (33.0-37.0) g/dL RDW 23.4 H (11.5-14.5) % Plt Count 166 (130-400) K/uL Neutrophils % (Manual) 88 H (42-75) % Lymphocytes % (Manual) 3 L (20-50) % Reactive Lymphs % 4 H (0-0) % Monocytes % (Manual) 5 (0-10) % Nucleated RBC % 1 H (0-0) % Platelet Estimate Normal (NORMAL) Poikilocytosis (manual Slight Anisocytosis (manual) Slight Ovalocytes Slight Sodium 140 (132-148) mmol/l Potassium 4.5 (3.6-5.0) MMOL/L Chloride 93 L (98-107) mmol/L Carbon Dioxide 38 H (22-30) mmol/L Anion Gap 14 (10-20) BUN 11 (7-17) mg/dl Creatinine 0.2 L (0.7-1.2) mg/dL Est GFR ( Amer) > 60 Est GFR (Non-Af Amer) > 60 Random Glucose 85 (65-105) mg/dL Calcium 9.1 (8.4-10.2) mg/dL Laboratory Results - last 24 hr 07/26/16 04:20 WBC 8.7 RBC 3.91 Hgb 11.0 L Hct 34.6 MCV 88.5 MCH 28.1 MCHC 31.7 L RDW 23.4 H Plt Count 166 Neutrophils % (Manual) 88 H Lymphocytes % (Manual) 3 L Reactive Lymphs % 4 H Monocytes % (Manual) 5 Nucleated RBC % 1 H Platelet Estimate Normal Poikilocytosis (manual Slight Anisocytosis (manual) Slight Ovalocytes Slight Sodium 140 Potassium 4.5 Chloride 93 L Carbon Dioxide 38 H Anion Gap 14 BUN 11 Creatinine 0.2 L Est GFR ( Amer) > 60 Est GFR (Non-Af Amer) > 60 Random Glucose 85 Calcium 9.1 Critical Care Progress Note - Nutrition Nutrition: Nutrition Category Date Time Status NPO Diet [DIET] Diets 07/26/16 Breakfast Active Assessment/Plan (1) Acute respiratory failure with hypoxia Current Visit: Yes Status: Acute Attending/Attestation - Attestation I have personally seen and examined this patient.: Yes I have fully participated in the care of the patient.: Yes I have reviewed all pertinent clinical information: Yes Notes (Text): 07/26/16 13:39 I have seen and examined the patient. Medical records, lab studies, and imaging were reviewed by me and a management plan was formulated on multidisciplinary rounds with resident Dr. Louie. I agree with their above documented assessment and plan. Critical Care Time 35 minutes. Multi-disciplinary rounds were performed with house staff, nursing, speech therapy, respiratory therapy, pharmacy and nutrition with integrated input from the primary team/attending and other consulting services. The documented time is cumulative and includes review of patient data/exams/labs/chart review and examination of the patient on rounds and throughout the day; time is exclusive of any procedures or teaching time. 07/26/16 13:39
--- NOTE | 2016-07-26 11:12 | CP.PCM.PN ---
Subjective - Date & Time of Evaluation Date of Evaluation: 07/26/16 Time of Evaluation: 11:10 - Subjective Subjective: Pt is feeling better after he trac was placed. Her CBC is stable,. Objective - Vital Signs/Intake and Output Vital Signs (last 24 hours): Temp Pulse Resp BP Pulse Ox 97.6 F 104 H 17 101/70 100 07/26/16 07:41 07/26/16 07:41 07/26/16 07:41 07/26/16 07:41 07/26/16 07:41 Intake and Output: 07/26/16 07/26/16 06:59 18:59 Intake Total 600 Output Total 1200 Balance -600 - Medications Medications: Current Medications Albuterol/Ipratropium (Duoneb 3 Mg/0.5 Mg (3 Ml) Ud) 3 ml INH RQID [facility] Last Admin: 07/26/16 07:54 Dose: 3 ml Alprazolam (Xanax) 0.5 mg PO Q8 [facility] Last Admin: 07/25/16 23:18 Dose: 0.5 mg Anastrozole (Arimidex 1 Mg Tab) 1 mg PO DAILY [facility] Last Admin: 07/25/16 08:08 Dose: 1 mg Famotidine (Pepcid) 40 mg PO DAILY ANDREAS Last Admin: 07/25/16 08:12 Dose: 40 mg Gabapentin (Neurontin) 600 mg PO Q8 [facility] Last Admin: 07/25/16 23:21 Dose: 600 mg Haloperidol Lactate (Haldol) 5 mg IVP ONCE ANDREAS Last Admin: 07/21/16 17:39 Dose: 5 mg Haloperidol Lactate (Haldol) 5 mg IVP ONCE [facility] Last Admin: 07/22/16 08:25 Dose: 5 mg Linezolid (Zyvox 600mg/300ml D5w) 300 mls @ 300 mls/hr IVPB Q12 ANDREAS Last Admin: 07/26/16 08:48 Dose: 300 mls/hr Methylprednisolone 30 mg/ (Sodium Chloride) 50 mls @ 100 mls/hr IV DAILY [facility] Last Admin: 07/26/16 08:46 Dose: 100 mls/hr Ceftazidime 1 gm/ Sodium (Chloride) 100 mls @ 200 mls/hr IVPB Q8 [facility] Last Admin: 07/26/16 08:47 Dose: 200 mls/hr Fentanyl Citrate 2,500 mcg/ (Dextrose) 250 mls @ 0 mls/hr IV .Q0M ANDREAS; Per Protocol PRN Reason: Protocol Lactobacillus Acidophilus (Bacid Acidophilus) 1 cap PO BID [facility] Last Admin: 07/25/16 17:26 Dose: 1 cap Loperamide HCl (Imodium) 2 mg PO QID PRN PRN Reason: Diarrhea Last Admin: 07/23/16 09:16 Dose: 2 mg Methimazole (Tapazole) 5 mg PO DAILY [facility] Last Admin: 07/25/16 08:13 Dose: 5 mg Metoprolol Tartrate (Lopressor) 12.5 mg PO Q12 [facility] Last Admin: 07/25/16 20:14 Dose: 12.5 mg Multi-Ingredient Cream (Hydrocerin Cream) 1 applic TOP BID [facility] Last Admin: 07/25/16 17:31 Dose: 1 applic Nitroglycerin (Nitro-Bid 2% Oint) 1 in TOP Q6 [facility] Last Admin: 07/26/16 04:04 Dose: Not Given Spironolactone (Aldactone) 25 mg PO DAILY [facility] Last Admin: 07/25/16 08:07 Dose: 25 mg Trimethoprim/Sulfamethoxazole (Sulfatrim Pediatric Susp) 20 ml PO Q12 [facility] Last Admin: 07/25/16 20:15 Dose: 20 ml Verapamil HCl (Calan Sr Tab) 180 mg PO DAILY [facility] Last Admin: 07/25/16 08:10 Dose: 180 mg - Labs Labs: 07/26/16 04:20 07/26/16 04:20 PT 12.0 SECONDS (9.6-11.2) H 07/19/16 04:20 INR 1.15 (0.92-1.08) H 07/19/16 04:20 APTT 27.7 SECONDS (23.3-32.5) 07/09/16 08:00
--- NOTE | 2016-07-26 11:20 | CP.PCM.PN ---
Subjective - Date & Time of Evaluation Date of Evaluation: 07/26/16 Time of Evaluation: 11:00 - Subjective Subjective: No fever Remains intubated on CPAP mode NGT in place Pt was sched for PEG placement today however cancelled due to problems with OR sched due to power issues Pt denies CP no abd pain had 3 episodes of diarrhea yesterday Objective - Vital Signs/Intake and Output Vital Signs (last 24 hours): Temp Pulse Resp BP Pulse Ox 97.6 F 104 H 17 101/70 100 07/26/16 07:41 07/26/16 07:41 07/26/16 07:41 07/26/16 07:41 07/26/16 07:41 Intake and Output: 07/26/16 07/26/16 06:59 18:59 Intake Total 600 Output Total 1200 Balance -600 - Medications Medications: Current Medications Albuterol/Ipratropium (Duoneb 3 Mg/0.5 Mg (3 Ml) Ud) 3 ml INH RQID [facility] Last Admin: 07/26/16 11:15 Dose: 3 ml Alprazolam (Xanax) 0.5 mg PO Q8 [facility] Last Admin: 07/25/16 23:18 Dose: 0.5 mg Anastrozole (Arimidex 1 Mg Tab) 1 mg PO DAILY [facility] Last Admin: 07/25/16 08:08 Dose: 1 mg Famotidine (Pepcid) 40 mg PO DAILY [facility] Last Admin: 07/25/16 08:12 Dose: 40 mg Gabapentin (Neurontin) 600 mg PO Q8 [facility] Last Admin: 07/25/16 23:21 Dose: 600 mg Haloperidol Lactate (Haldol) 5 mg IVP ONCE [facility] Last Admin: 07/21/16 17:39 Dose: 5 mg Haloperidol Lactate (Haldol) 5 mg IVP ONCE [facility] Last Admin: 07/22/16 08:25 Dose: 5 mg Linezolid (Zyvox 600mg/300ml D5w) 300 mls @ 300 mls/hr IVPB Q12 [facility] Last Admin: 07/26/16 08:48 Dose: 300 mls/hr Methylprednisolone 30 mg/ (Sodium Chloride) 50 mls @ 100 mls/hr IV DAILY [facility] Last Admin: 07/26/16 08:46 Dose: 100 mls/hr Ceftazidime 1 gm/ Sodium (Chloride) 100 mls @ 200 mls/hr IVPB Q8 [facility] Last Admin: 07/26/16 08:47 Dose: 200 mls/hr Fentanyl Citrate 2,500 mcg/ (Dextrose) 250 mls @ 0 mls/hr IV .Q0M [facility]; Per Protocol PRN Reason: Protocol Lactobacillus Acidophilus (Bacid Acidophilus) 1 cap PO BID [facility] Last Admin: 07/25/16 17:26 Dose: 1 cap Loperamide HCl (Imodium) 2 mg PO QID PRN PRN Reason: Diarrhea Last Admin: 07/23/16 09:16 Dose: 2 mg Methimazole (Tapazole) 5 mg PO DAILY [facility] Last Admin: 07/25/16 08:13 Dose: 5 mg Metoprolol Tartrate (Lopressor) 12.5 mg PO Q12 [facility] Last Admin: 07/25/16 20:14 Dose: 12.5 mg Multi-Ingredient Cream (Hydrocerin Cream) 1 applic TOP BID [facility] Last Admin: 07/25/16 17:31 Dose: 1 applic Nitroglycerin (Nitro-Bid 2% Oint) 1 in TOP Q6 [facility] Last Admin: 07/26/16 04:04 Dose: Not Given Spironolactone (Aldactone) 25 mg PO DAILY [facility] Last Admin: 07/25/16 08:07 Dose: 25 mg Trimethoprim/Sulfamethoxazole (Sulfatrim Pediatric Susp) 20 ml PO Q12 [facility] Last Admin: 07/25/16 20:15 Dose: 20 ml Verapamil HCl (Calan Sr Tab) 180 mg PO DAILY [facility] Last Admin: 07/25/16 08:10 Dose: 180 mg - Labs Labs: 07/26/16 04:20 07/26/16 04:20 PT 12.0 SECONDS (9.6-11.2) H 07/19/16 04:20 INR 1.15 (0.92-1.08) H 07/19/16 04:20 APTT 27.7 SECONDS (23.3-32.5) 07/09/16 08:00 - Constitutional Appears: Not in any Distress, Older Than Stated Age, Chronically Ill s/p Tracheostomy on Vent NGT in place - Head Exam Head Exam: NORMAL INSPECTION, NORMOCEPHALIC Right facial abscess wound now almost flat with very minimal drainage, very sl tender - Eye Exam Eye Exam: EOMI, Normal appearance Pupil Exam: NORMAL ACCOMODATION - ENT Exam ENT Exam: Mucous Membranes Dry, Normal External Ear Exam NGT in place - Neck Exam Neck Exam: Full ROM. absent: Meningismus s/p Trach - Respiratory Exam Respiratory Exam: Accessory Muscle Use, Chest Wall Tenderness, Decreased Breath Sounds, Rhonchi - Cardiovascular Exam Cardiovascular Exam: Tachycardia, REGULAR RHYTHM, +S1, +S2 - GI/Abdominal Exam GI & Abdominal Exam: Soft, Normal Bowel Sounds. absent: Tenderness NGT in place - Extremities Exam Extremities Exam: absent: Calf Tenderness, Normal Capillary Refill Additional comments: Right arm edema right shoulder post surgical deformity - Neurological Exam Additional comments: Pt is intubated awake oriented moves all extremities - Psychiatric Exam Psychiatric exam: Flat Affect - Skin Additional comments: noted ecchymosis denise on chest and LE Assessment and Plan (1) Acute and chronic respiratory failure with hypercapnia Status: Acute (2) Osteomyelitis of mandible Status: Acute (3) Hypothyroidism Status: Acute (4) Acute exacerbation of chronic obstructive pulmonary disease (COPD) Status: Acute (5) HTN (hypertension) Status: Chronic (6) Hx of breast cancer Status: Chronic (7) Acute exacerbation of CHF (congestive heart failure) Status: Acute (8) Hypokalemia Status: Resolved (9) Facial abscess Status: Acute (10) DVT prophylaxis Status: Acute - Assessment and Plan (Free Text) Assessment: 66 y/o female PMH COPD, bilateral breast CA s/p chemo and radiation 8 years ago , HTN, Hyperthyroidism presented with 2 week history of worsening bilateral lower extremity swelling and weakness, unable to get herself up to her walker. Patient has mild dyspnea at baseline. She also came with a large right facial swelling for almost 2 weeks and was taking PO antibiotics prescribed by her dentist. Patient was admitted for generalized weakness , Hyponatremia and Facial abscess. She was started on IV antibiotics for facial abscess and Lasix IV with fluid restriction for LE edema. Maxillofacial Ct showed possible abscess accumulation. Evaluated by Oromaxillofacial surgeon and underwent Incision and drainage of abscess. Bone scan showed possible osteomyelitis During this hospitalization noted to have increased dyspnea at rest and more so with minimal activity, decreased air entry bilaterally and increased work of breathing. She was started on high flow O2, Higher doses of theophylline and IV hydrocortisone. CTA chest and LE doppler showed no DVT. She was transferred to ICU for close monitoring for tachypnea and tachycardia. She underwent IR drainage on 06/24 of right facial abscess due to re accumulation and cultures came positive for VRE and bria. Antibiotics were changed to Zyvox , Meropenem and Fluconazone. Despite drainage and IV antibiotics she still kept complaining of pain to right supramandibular area with increased swelling. Repeat CT showed abscess formation. Patient underwent I&D in OR 07/06/16 with cynthia drainage placement. She continues to have episodes of resp distress - tachypneic , tachycardic , with chest congestion , unable to expectorate despite high flow O2 therapy, Duonebs and Corticosteroids. 07/07/16 underwent Bronchoscopy. BAL showed Stenotrophomonas Maltophilia. Antibiotics changed to IV bactrim, Fortaz, Zyvox and Fluconazole. On 07/09 she developed severe respiratory distress with hypoxemia requiring intubation . Patient failed multiple attempts of extubation and at present s/p trache placement 07/19. Plan for poss d/c to LTACH once PEG is placed 1. Acute on Chronic Respiratory Failure with hypercapnea Multiple trials of intubation and extubation , failed extubation s/p Tracheostomy 07/19 Pulmonary: Dr Benz, is following pt closely on CPAP tmode and tolerating so far CXR : no infiltrate, no PTX Bronchoscopy 07/07/16 with BAL: Stenotrophomonas maltophilla. On Bactrim, Fortaz, and Zyvox as per ID on Methylprednisone 30 mg Iv q24, Xopenex, albuterol and tiotropium inhaler Plan for PEG placement Tuesday 2. Facial abscess with mandibular Osteomyelitis s/p drainage of abscess and I& D s/p Incision and drainage on 06/[address] Ambrose maxillofacial surgeon and rpt I&D 07/06 pathology report showed inflammatory cells, no malignancy Nuclear Bone Scan suggestive of osteomyelitis initial cultures were with no growth ID consult with Dr Obrien on board managing antibiotics based on cultures reported Due to increased swelling and pain patient underwent drainage of facial collection by IR on 06/24 and 24 ml yellow fluid obtained. Cultures reported as VRE and Bria On Zyvox , Bactrim, Fortaz ( received 6 wks total IV abx ) - discussed with Dr Obrien - rec to continue IV abx for now Discontinued Fluconazole due to abnormal LFT-s At present on bactrim , Fortaz,and Zyvox 3. Recurrent Chest Pain episodes , prob sec to Anxiety, ACS ruled out with recurrent pressure like chest pain on and off cardiology consulted Dr. Jus Terry -- negative and EKG showed no ST-T wave changes Most likely atypical chest pain related to anxiety , and COPD, no signs of ischemia [facility] - improved pt's sxs Fentanyl drip discontinued 4. Bilateral LE edema sec to CHF exacerbation with diastolic dysfxn slowly improving edema to LE but with seeping thigh edema Echo showed EF 40-45 % and dilated RV continue fluid restriction Promote ambulation once better cont Aldactone 5. Hypokalemia multifactorial diuretic induced , Albuterol, Hypothyroidism and GI loss off Lasix, on Aldactone Continue KCl runs and PO replacement as needed Nephro consult appreciated CT of abd showed no adrenal mass 6 .Hyponatremia most likely secondary to solute depletion and infection Continue fluid restriction 7.Hx breast ca, bilateral stable, s/p bilateral mastectomy continue Arimidex 8. Tachycardia/SVT -- multifactorial Hx of HTN was on verapamil at home , cont low dose Verapamil Started low dose Metoprolol 12.5 mg po bid continue monitoring patient with high levels of anxiety and pain called Dr Verdugo for Pain mgt , discussed case CTA PULm : neg for PE 9. Hypothyroidism/ Hyperthyroidism patient has history of hyperthyroidism , was on Methimazole and noticed to had developed hypothyroidism so Methimazole was d/c and she was started on Po levothyroxine this admission , TSH then went down and Metrhimazole restarted Methimazole 5 mg po daily restarted as discussed with Dr Vu 10. Anemia, chronic dis monitor anemia work up showed depleted iron stores Venofer IV given s/p 2 units PRBC transfusion 11. Right cephalic vein thrombosis ( superficial vein) no need for therapeutic anticoag 12.Thrombocytopenia, resolved improving Most likely related to bone marrow suppression and multiple medication use Continue monitoring 13.DVT ppx restart lovenox
[2016-07-26] MEDS ORDERED: Enoxaparin 40 mg Syringe SC ONE (11:45)
--- NOTE | 2016-07-26 12:11 | RAD ---
HISTORY: ventilatory failure COMPARISON: Chest x-ray performed 07/23/16 TECHNIQUE: Chest, one view. FINDINGS: Right-sided MediPort catheter terminates at the expected location of the SVC. Tracheostomy tube. Nasogastric tube extends expected location of the stomach, distal tip excluded from view. LUNGS: Small bilateral pleural effusions. Bibasilar atelectasis or infiltrates. No definite pneumothorax. Emphysematous changes. Please note that chest x-ray has limited sensitivity for the detection of pulmonary masses. CARDIOVASCULAR: Cardiomegaly. Dense atherosclerotic calcification of the aorta. OSSEOUS STRUCTURES: Chronic deformity of the right humerus with apparent resection of the proximal right humerus. Postsurgical changes of the left humeral head. Probable partial resection or resorption of the left distal clavicle. Partially imaged cervical fusion hardware. Osseous demineralization. Degenerative changes. VISUALIZED UPPER ABDOMEN: Unremarkable. OTHER FINDINGS: Right axillary clips. IMPRESSION: Support lines and tubes as above. Small bilateral pleural effusions. Bibasilar atelectasis or infiltrates. Emphysematous changes.
--- NOTE | 2016-07-26 21:53 | PN ---
DATE: 07/26/2016 ROOM: 434 SUBJECTIVE: This is a 66-year-old female with recent congestive heart failure and supervening acute exacerbation of COPD now being followed closely for hemodynamic monitoring in the ICU and is also joon ng followed for ongoing thyroid management of recent hyperthyroidism. Her latest chemistries showed a BUN of 11, sodium 140, potassium 4.5, chloride 93, CO2 of 38, glucose 85 and creatinine 0.2. She h as remained clinically and biochemically euthyroid at this time on a very low dose of medical therapy as given. So, for now, we will continue the Tapazole given as 5 mg once daily as ordered. We will repeat the thyroid studies and adjust her dose regimen accordingly. We will follow. Polly Vu MD cc: [id number] TT: 07/26/2016 21:52:54 Confirmation # [id number] Dictation # [id number] mn
[2016-07-27] MEDS: Nitroglycerin 2% 1GM UD TOP SCH ×4 (03:59→21:14)
[2016-07-27 05:30] LABS: HEMATOCRIT 35.6 % (34.0-47.0); MEAN CELL VOLUME 88.6 fl (81.0-99.0); MEAN CORPUSCULAR HGB CONC 31.7 g/dL (33.0-37.0); RED CELL DISTRIBUTION WIDTH 22.3 % (11.5-14.5); WHITE BLOOD COUNT 8.6 K/uL (4.8-10.8)
[2016-07-27 05:39] LABS: BLOOD UREA NITROGEN 11 mg/dl (7-17); CALCIUM 9.3 mg/dL (8.4-10.2); CARBON DIOXIDE 39 mmol/L (22-30); CHLORIDE 94 mmol/L (98-107); GFR AFRICAN-AMERICAN > 60; GLUCOSE,RANDOM 94 mg/dL (65-105); SODIUM 142 mmol/l (132-148)
[2016-07-27] MEDS: Albuterol-Ipratrop 3 mg / 0.5 (3 ml) UD INH SCH ×4 (08:08→19:31)
--- NOTE | 2016-07-27 09:21 | CP.PCM.PN ---
Subjective - Date & Time of Evaluation Date of Evaluation: 07/27/16 Time of Evaluation: 09:11 - Subjective Subjective: Seen on morning rounds. Case discussed with nursing and aviation electronic warfare operator. Patient is awake, alert, cooperative. Mood appears good. Suctioned small to moderate amount of thin mucoid secrtions from tracheostomy. Maintains SpO2 100% on CPAP 5 / PS 5 with 50% O2. AM labs reviewed. No CXR today. No dullness on percussion of the anterior chest wall. No subcutaneous emphysema palpated. Sonorous rhonchi auscultated in lower lobes, R>L, cleared with suctioning. Breath sounds are diminished bilaterally, no audible wheeze. Remains mildly tachycardic at 100BPM. Dependant edema gradually decreasing. No cyanosis. Ventilator changed to trach collar 40% O2. Peg planned for tomorrow. Will ask ID if ceftazidine or trimenthoprim can be discontinued. Will place back on CPAP/PS ventilation if needed. Solumedrol changed to prednisone 20MG via NGT daily. Continuie all other medications unchanged. Objective - Vital Signs/Intake and Output Vital Signs (last 24 hours): Temp Pulse Resp BP Pulse Ox 98.7 F 109 H 19 114/76 93 L 07/27/16 08:00 07/27/16 08:00 07/27/16 08:00 07/27/16 08:00 07/27/16 08:00 Intake and Output: 07/26/16 07/27/16 23:59 11:59 Intake Total 470 480 Output Total 1000 Balance 470 -520 - Medications Medications: Current Medications Albuterol/Ipratropium (Duoneb 3 Mg/0.5 Mg (3 Ml) Ud) 3 ml INH RQID [facility] Last Admin: 07/27/16 08:08 Dose: 3 ml Alprazolam (Xanax) 0.5 mg PO Q8 [facility] Last Admin: 07/27/16 00:18 Dose: 0.5 mg Anastrozole (Arimidex 1 Mg Tab) 1 mg PO DAILY [facility] Last Admin: 07/26/16 09:00 Dose: Not Given Famotidine (Pepcid) 40 mg PO DAILY [facility] Last Admin: 07/26/16 09:00 Dose: Not Given Gabapentin (Neurontin) 600 mg PO Q8 [facility] Last Admin: 03/21/17 00:17 Dose: 600 mg Haloperidol Lactate (Haldol) 5 mg IVP ONCE [facility] Last Admin: 07/21/16 17:39 Dose: 5 mg Haloperidol Lactate (Haldol) 5 mg IVP ONCE [facility] Last Admin: 07/22/16 08:25 Dose: 5 mg Linezolid (Zyvox 600mg/300ml D5w) 300 mls @ 300 mls/hr IVPB Q12 [facility] Last Admin: 07/26/16 20:34 Dose: 300 mls/hr Methylprednisolone 30 mg/ (Sodium Chloride) 50 mls @ 100 mls/hr IV DAILY [facility] Stop: 07/27/16 23:59 Last Admin: 07/26/16 08:46 Dose: 100 mls/hr Ceftazidime 1 gm/ Sodium (Chloride) 100 mls @ 200 mls/hr IVPB Q8 [facility] Last Admin: 07/27/16 00:16 Dose: 200 mls/hr Lactobacillus Acidophilus (Bacid Acidophilus) 1 cap PO BID [facility] Last Admin: 07/26/16 17:13 Dose: 1 cap Loperamide HCl (Imodium) 2 mg PO QID PRN PRN Reason: Diarrhea Last Admin: 07/23/16 09:16 Dose: 2 mg Methimazole (Tapazole) 5 mg PO DAILY [facility] Last Admin: 07/26/16 09:00 Dose: Not Given Metoprolol Tartrate (Lopressor) 12.5 mg PO Q12 [facility] Last Admin: 07/26/16 20:35 Dose: 12.5 mg Multi-Ingredient Cream (Hydrocerin Cream) 1 applic TOP BID [facility] Last Admin: 07/26/16 17:17 Dose: 1 applic Nitroglycerin (Nitro-Bid 2% Oint) 1 in TOP Q6 [facility] Last Admin: 07/27/16 03:59 Dose: 1 in Prednisone (Prednisone Oral Soln) 20 mg PO DAILY [facility] Spironolactone (Aldactone) 25 mg PO DAILY [facility] Last Admin: 07/26/16 09:00 Dose: Not Given Trimethoprim/Sulfamethoxazole (Sulfatrim Pediatric Susp) 20 ml PO Q12 [facility] Last Admin: 07/26/16 20:34 Dose: 20 ml Verapamil HCl (Calan Sr Tab) 180 mg PO DAILY [facility] Last Admin: 07/26/16 09:00 Dose: Not Given - Labs Labs: 07/27/16 04:25 07/27/16 04:25 PT 12.0 SECONDS (9.6-11.2) H 07/19/16 04:20 INR 1.15 (0.92-1.08) H 07/19/16 04:20 APTT 27.7 SECONDS (23.3-32.5) 07/09/16 08:00 Assessment and Plan (1) Acute bronchitis with chronic obstructive pulmonary disease (COPD) Status: Acute (2) Hyperthyroidism Status: Chronic (3) Abscess Status: Resolved (4) Hypokalemia Status: Resolved (5) Osteomyelitis Status: Acute
--- NOTE | 2016-07-27 09:38 | CP.PCM.PN ---
Subjective - Date & Time of Evaluation Date of Evaluation: 07/27/16 Time of Evaluation: 09:30 - Subjective Subjective: Pt is now off Vent Now on Trach Collar at 40% NGT in place No fever looks calm denies CP no abd pain loose stools yesterday - sent for C diff ( negative ) Objective - Vital Signs/Intake and Output Vital Signs (last 24 hours): Temp Pulse Resp BP Pulse Ox 98.7 F 109 H 19 114/76 93 L 07/27/16 08:00 07/27/16 08:00 07/27/16 08:00 07/27/16 08:00 07/27/16 08:00 Intake and Output: 07/27/16 07/27/16 06:59 18:59 Intake Total 950 Output Total 1000 Balance -50 - Medications Medications: Current Medications Albuterol/Ipratropium (Duoneb 3 Mg/0.5 Mg (3 Ml) Ud) 3 ml INH RQID [facility] Last Admin: 07/27/16 08:08 Dose: 3 ml Alprazolam (Xanax) 0.5 mg PO Q8 [facility] Last Admin: 07/27/16 00:18 Dose: 0.5 mg Anastrozole (Arimidex 1 Mg Tab) 1 mg PO DAILY [facility] Last Admin: 07/26/16 09:00 Dose: Not Given Famotidine (Pepcid) 40 mg PO DAILY [facility] Last Admin: 07/26/16 09:00 Dose: Not Given Gabapentin (Neurontin) 600 mg PO Q8 [facility] Last Admin: 07/27/16 00:17 Dose: 600 mg Haloperidol Lactate (Haldol) 5 mg IVP ONCE [facility] Last Admin: 07/21/16 17:39 Dose: 5 mg Haloperidol Lactate (Haldol) 5 mg IVP ONCE [facility] Last Admin: 07/22/16 08:25 Dose: 5 mg Linezolid (Zyvox 600mg/300ml D5w) 300 mls @ 300 mls/hr IVPB Q12 [facility] Last Admin: 07/26/16 20:34 Dose: 300 mls/hr Methylprednisolone 30 mg/ (Sodium Chloride) 50 mls @ 100 mls/hr IV DAILY [facility] Stop: 07/27/16 23:59 Last Admin: 07/26/16 08:46 Dose: 100 mls/hr Ceftazidime 1 gm/ Sodium (Chloride) 100 mls @ 200 mls/hr IVPB Q8 [facility] Last Admin: 07/27/16 00:16 Dose: 200 mls/hr Lactobacillus Acidophilus (Bacid Acidophilus) 1 cap PO BID [facility] Last Admin: 07/26/16 17:13 Dose: 1 cap Loperamide HCl (Imodium) 2 mg PO QID PRN PRN Reason: Diarrhea Last Admin: 07/23/16 09:16 Dose: 2 mg Methimazole (Tapazole) 5 mg PO DAILY [facility] Last Admin: 07/26/16 09:00 Dose: Not Given Metoprolol Tartrate (Lopressor) 12.5 mg PO Q12 [facility] Last Admin: 07/26/16 20:35 Dose: 12.5 mg Multi-Ingredient Cream (Hydrocerin Cream) 1 applic TOP BID [facility] Last Admin: 07/26/16 17:17 Dose: 1 applic Nitroglycerin (Nitro-Bid 2% Oint) 1 in TOP Q6 [facility] Last Admin: 07/27/16 03:59 Dose: 1 in Prednisone (Prednisone Oral Soln) 20 mg PO DAILY [facility] Spironolactone (Aldactone) 25 mg PO DAILY [facility] Last Admin: 07/26/16 09:00 Dose: Not Given Trimethoprim/Sulfamethoxazole (Sulfatrim Pediatric Susp) 20 ml PO Q12 [facility] Last Admin: 07/26/16 20:34 Dose: 20 ml Verapamil HCl (Calan Sr Tab) 180 mg PO DAILY [facility] Last Admin: 07/26/16 09:00 Dose: Not Given - Labs Labs: 07/27/16 04:25 07/27/16 04:25 PT 12.0 SECONDS (9.6-11.2) H 07/19/16 04:20 INR 1.15 (0.92-1.08) H 07/19/16 04:20 APTT 27.7 SECONDS (23.3-32.5) 07/09/16 08:00 - Constitutional Appears: Not in any Distress, Older Than Stated Age, Chronically Ill s/p Tracheostomy on on Trach collar at 40% NGT in place - Head Exam Head Exam: NORMAL INSPECTION, NORMOCEPHALIC Right facial abscess wound now almost flat with very minimal drainage, very sl tender - Eye Exam Eye Exam: EOMI, Normal appearance Pupil Exam: NORMAL ACCOMMODATION - ENT Exam ENT Exam: Mucous Membranes Dry, Normal External Ear Exam NGT in place - Neck Exam Neck Exam: Full ROM. absent: Meningismus s/p Trach - Respiratory Exam Respiratory Exam: Accessory Muscle Use, Chest Wall Tenderness, Decreased Breath Sounds, Rhonchi - Cardiovascular Exam Cardiovascular Exam: Tachycardia, REGULAR RHYTHM, +S1, +S2 - GI/Abdominal Exam GI & Abdominal Exam: Soft, Normal Bowel Sounds. absent: Tenderness NGT in place - Extremities Exam Extremities Exam: absent: Calf Tenderness, Normal Capillary Refill Additional comments: Right arm edema right shoulder post surgical deformity - Neurological Exam Additional comments: Pt is intubated awake oriented moves all extremities - Psychiatric Exam Psychiatric exam: Flat Affect - Skin Additional comments: noted ecchymosis denise on chest and LE Assessment and Plan (1) Acute and chronic respiratory failure with hypercapnia Status: Acute (2) Osteomyelitis of mandible Status: Acute (3) Hypothyroidism Status: Acute (4) Acute exacerbation of chronic obstructive pulmonary disease (COPD) Status: Acute (5) HTN (hypertension) Status: Chronic (6) Hx of breast cancer Status: Chronic (7) Acute exacerbation of CHF (congestive heart failure) Status: Acute (8) Hypokalemia Status: Resolved (9) Facial abscess Status: Acute (10) DVT prophylaxis Status: Acute - Assessment and Plan (Free Text) Assessment: 66 y/o female PMH COPD, bilateral breast CA s/p chemo and radiation 8 years ago , HTN, Hyperthyroidism presented with 2 week history of worsening bilateral lower extremity swelling and weakness. She also came with a large right facial swelling for almost 2 weeks. Patient was admitted for generalized weakness , Hyponatremia and Facial abscess. She was started on IV antibiotics for facial abscess and Lasix IV with fluid restriction for LE edema. Maxillofacial Ct showed possible abscess accumulation. Evaluated by Oromaxillofacial surgeon and underwent Incision and drainage of abscess. Bone scan showed possible osteomyelitis During this hospitalization noted to have increased dyspnea at rest and more so with minimal activity, decreased air entry bilaterally and increased work of breathing. She was started on high flow O2, Higher doses of theophylline and IV hydrocortisone. CTA chest and LE doppler showed no DVT. She was transferred to ICU for close monitoring for tachypnea and tachycardia. She underwent IR drainage on 06/24 of right facial abscess due to re accumulation and cultures came positive for VRE and bria. Antibiotics were changed to Zyvox , Meropenem and Fluconazone. Despite drainage and IV antibiotics she still kept complaining of pain to right supramandibular area with increased swelling. Repeat CT showed abscess formation. Patient underwent I&D in OR 07/06/16 with cynthia drainage placement. She continued to have episodes of resp distress - tachypneic , tachycardic , with chest congestion , unable to expectorate despite high flow O2 therapy, Duonebs and Corticosteroids. 07/07/16 underwent Bronchoscopy. BAL showed Stenotrophomonas Maltophilia. Antibiotics changed to IV bactrim, Fortaz, Zyvox and Fluconazole. On 07/09 she developed severe respiratory distress with hypoxemia requiring intubation . Patient failed multiple attempts of extubation and at present s/p T5rach placement 07/19. Plan for poss d/c to LTACH once PEG is placed 1. Acute on Chronic Respiratory Failure with hypercapnea Multiple trials of intubation and extubation , failed extubation s/p Tracheostomy 07/19 Pulmonary: Dr Benz, is following pt closely Now on Trach collar 40% CXR : no infiltrate, no PTX Bronchoscopy 07/07/16 with BAL: Stenotrophomonas maltophilla. On Bactrim, Fortaz, and Zyvox as per ID Solumedrol IV changed to PO Prednisone 20 mg daily, cont Duoneb tx Plan for PEG placement tomorrow 2. Facial abscess with mandibular Osteomyelitis s/p drainage of abscess and I& D s/p Incision and drainage on 06/[address] Ambrose maxillofacial surgeon and rpt I&D 07/06 pathology report showed inflammatory cells, no malignancy Nuclear Bone Scan suggestive of osteomyelitis initial cultures were with no growth ID consult with Dr Obrien on board managing antibiotics based on cultures reported Due to increased swelling and pain patient underwent drainage of facial collection by IR on 06/24 and 24 ml yellow fluid obtained. Cultures reported as VRE and Bria On Zyvox , Bactrim, Fortaz ( received 7 wks total IV abx ) - discussed with Dr Obrien - rec to continue IV abx for now Discontinued Fluconazole due to abnormal LFT-s At present on bactrim , Fortaz,and Zyvox 3. Recurrent Chest Pain episodes , prob sec to Anxiety, ACS ruled out with recurrent pressure like chest pain on and off cardiology consulted Dr. Jus Terry -- negative and EKG showed no ST-T wave changes Most likely atypical chest pain related to anxiety , and COPD, no signs of ischemia [facility] improved pt's sxs 4. Bilateral LE edema sec to CHF exacerbation with diastolic dysfxn slowly improving edema to LE but with seeping thigh edema Echo showed EF 40-45 % and dilated RV continue fluid restriction Promote ambulation once better cont Aldactone 5. Hypokalemia multifactorial diuretic induced , Albuterol, Hypothyroidism and GI loss off Lasix, on Aldactone Continue KCl runs and PO replacement as needed Nephro consult appreciated CT of abd showed no adrenal mass 6 .Hyponatremia most likely secondary to solute depletion and infection Continue fluid restriction 7.Hx breast ca, bilateral stable, s/p bilateral mastectomy continue Arimidex 8. Tachycardia/SVT -- multifactorial cont low dose Verapamil Started low dose Metoprolol 12.5 mg po bid continue monitoring patient with high levels of anxiety and pain called Dr Verdugo for Pain mgt , discussed case CTA PULm : neg for PE 9. Hypothyroidism/ Hyperthyroidism patient has history of hyperthyroidism , was on Methimazole and noticed to had developed hypothyroidism so Methimazole was d/c and she was started on Po levothyroxine this admission , TSH then went down and Methimazole restarted Methimazole 5 mg po daily restarted as discussed with Dr Vu 10. Anemia, chronic dis monitor anemia work up showed depleted iron stores Venofer IV given s/p 2 units PRBC transfusion 11. Right cephalic vein thrombosis ( superficial vein) no need for therapeutic anticoag 12.Thrombocytopenia, resolved improving Most likely related to bone marrow suppression and multiple medication use Continue monitoring 13.DVT ppx Hold lOvenox as pt for PEG placement in am
[2016-07-27] MEDS: Lactobacillus Acidophilus 500 MU Cap PO SCH ×2 (09:50→16:45)
[2016-07-27] MEDS: Verapamil 180 mg ER Tab PO SCH (09:50)
[2016-07-27] MEDS: Hydrocerin CREAM TOP SCH ×2 (09:53→16:46)
[2016-07-27] MEDS: Famotidine 40 MG/5 ML PO SCH (09:55)
[2016-07-27] MEDS: methylPREDNISolone 30 MG in Sodium Chloride 0.9% 50 ML IV SCH (09:56)
[2016-07-27] MEDS: Tmp-Smz 200-40mg/5 ml Oral Sus(120 ml) PO SCH ×2 (09:57→20:10)
[2016-07-27] MEDS: methIMAzole 5 MG TAB PO SCH (09:57)
[2016-07-27] MEDS: Linezolid 600 mg in D5W 300 ml 300 ML IVPB SCH ×2 (09:59→20:05)
--- NOTE | 2016-07-27 10:32 | CP.CCUPN ---
<Heladio Louie T - Last Filed: 07/27/16 10:24> CCU Subjective - Physician Review Subjective (Free Text): Pt is seen and examined at bedside in the ICU. Pt was comfortably lying supine w the trach collar attached, not exhibiting any signs of sob/dyspnea. She denies any respiratory distress, sob, dyspnea, or gasping. She also denies overnight complaints or events, f/c/n/v/d/c, headaches, chest pain, abd pain, or myalgias. CCU Objective - Vital Signs / Intake & Output Vital Signs (Last 4 hours): Vital Signs Temp Pulse Resp BP Pulse Ox 07/27/16 09:54 109 H 114/76 07/27/16 09:50 109 H 114/76 07/27/16 08:00 98.7 F 109 H 19 114/76 93 L Intake and Output (Last 8hrs): Intake & Output 07/26/16 07/27/16 07/27/16 22:59 06:59 14:59 Intake Total 470 480 450 Output Total 1000 Balance 470 -520 450 Weight 117 lb Intake: Intake, Piggyback 300 450 Tube Feeding 120 280 Free Water Flush 50 200 Output: Gastric Amount 0 Stomach 0 Urine 1000 Urethral (Gutierrez) 1000 Other: # Bowel Movements 1 1 - Physical Exam Head: Positive for: Atraumatic. Negative for: Ecchymosis Pupils: Positive for: PERRL. Negative for: Sluggish, Non-Reactive Extroacular Muscles: Positive for: EOMI. Negative for: Gaze Palsy, Entrapment Conjunctiva: Positive for: Normal Mouth: Positive for: Moist Mucous Membranes, Dry Pharnyx: Positive for: Normal Neck: Positive for: Trachea Midline, Other (tracheotomy, clean). Negative for: MIDLINE TENDERNESS, Paraspinal Tenderness, JVD, Lymphadenopathy, Bruit Respiratory/Chest: Positive for: Good Air Exchange, Decreased Breath Sounds ( minimally b/l), Rhonchi (minimally b/l). Negative for: Respiratory Distress, Accessory Muscle Use, Wheezes, Tachypneic Cardiovascular: Positive for: Normal S1, S2, Peripheal Pulses Present, Tachycardic. Negative for: Murmurs, Irregular Rhythm Abdomen: Positive for: Normal Bowel Sounds. Negative for: Tenderness, Distention Upper Extremity: Positive for: NORMAL PULSES, Capillary Refill < 2s, Other (L arm presents w/o edema, normal pulses; Rt arm edema). Negative for: Cyanosis, Tenderness Lower Extremity: Positive for: Edema, NORMAL PULSES. Negative for: CALF TENDERNESS Neurological: Positive for: GCS=15, CN II-XII Intact, Other (trach) Skin: Positive for: Warm, Dry, Normal Color Psychiatric: Positive for: Alert, Oriented x 3 - Medications Active Medications: Active Medications Generic Name Dose Route Start Last Admin Trade Name Stevenq PRN Reason Stop Dose Admin Albuterol/Ipratropium 3 ml 07/19/16 12:00 07/27/16 08:08 Duoneb 3 Mg/0.5 Mg (3 Ml) Ud INH 3 ml RQID ANDREAS Administration Alprazolam 0.5 mg 07/21/16 17:45 07/27/16 09:58 Xanax PO 0.5 mg Q8 ANDREAS Administration Anastrozole 1 mg 07/07/16 09:00 07/27/16 09:49 Arimidex 1 Mg Tab PO 1 mg DAILY ANDREAS Administration Famotidine 40 mg 07/22/16 09:00 07/27/16 09:55 Pepcid PO 40 mg DAILY ANDREAS Administration Gabapentin 600 mg 07/06/16 17:00 07/27/16 09:54 Neurontin PO 600 mg Q8 ANDREAS Administration Haloperidol Lactate 5 mg 07/21/16 17:45 07/21/16 17:39 Haldol IVP 5 mg ONCE ANDREAS Administration Haloperidol Lactate 5 mg 07/22/16 08:15 07/22/16 08:25 Haldol IVP 5 mg ONCE ANDREAS Administration Linezolid 300 mls @ 300 mls/hr 07/06/16 21:00 07/27/16 09:59 Zyvox 600mg/300ml D5w IVPB 300 mls/hr Q12 ANDRE[facility] Administration Methylprednisolone 30 mg/ 50 mls @ 100 mls/hr 07/22/16 09:00 07/27/16 09:56 Sodium Chloride IV 07/27/16 23:59 100 mls/hr DAILY ANDREAS Administration Ceftazidime 1 gm/ Sodium 100 mls @ 200 mls/hr 07/24/16 17:00 07/27/16 09:51 Chloride IVPB 200 mls/hr Q8 ANDREAS Administration Lactobacillus Acidophilus 1 cap 07/06/16 17:00 07/27/16 09:50 Bacid Acidophilus PO 1 cap BID ANDREAS Administration Loperamide HCl 2 mg 07/21/16 13:14 07/23/16 09:16 Imodium PO 2 mg QID PRN Administration Diarrhea Methimazole 5 mg 07/14/16 09:00 07/27/16 09:57 Tapazole PO 5 mg DAILY ANDRE[facility] Administration Metoprolol Tartrate 12.5 mg 07/22/16 09:00 07/27/16 09:54 Lopressor PO 12.5 mg Q12 ANDREAS Administration Multi-Ingredient Cream 1 applic 07/06/16 17:00 07/27/16 09:53 Hydrocerin Cream TOP 1 applic BID ANDREAS Administration Nitroglycerin 1 in 07/06/16 16:00 07/27/16 09:55 Nitro-Bid 2% Oint TOP 1 in Q6 [facility]RE[facility] Administration Prednisone 20 mg 07/28/16 09:00 Prednisone Tab PO DAILY ANDRE[facility] Spironolactone 25 mg 07/07/16 09:00 07/27/16 09:47 Aldactone PO 25 mg DAILY [facility]RE[facility] Administration Trimethoprim/Sulfamethoxazole 20 ml 07/17/16 21:00 07/27/16 09:57 Sulfatrim Pediatric Susp PO 20 ml Q12 [facility] Administration Verapamil HCl 180 mg 07/21/16 18:00 07/27/16 09:50 Calan Sr Tab PO 180 mg DAILY [facility]RE[facility] Administration - Patient Studies Lab Studies: Microbiology Studies 07/26/16 15:11 Gram Stain - Final Abscess - Cheek Lab Studies 07/27/16 Range/Units 04:25 WBC 8.6 (4.8-10.8) K/uL RBC 4.02 (3.80-5.20) Mil/uL Hgb 11.3 L (12.0-16.0) g/dL Hct 35.6 (34.0-47.0) % MCV 88.6 (81.0-99.0) fl MCH 28.0 (27.0-31.0) pg MCHC 31.7 L (33.0-37.0) g/dL RDW 22.3 H (11.5-14.5) % Plt Count 181 (130-400) K/uL Sodium 142 (132-148) mmol/l Potassium 4.0 (3.6-5.0) MMOL/L Chloride 94 L (98-107) mmol/L Carbon Dioxide 39 H (22-30) mmol/L Anion Gap 13 (10-20) BUN 11 (7-17) mg/dl Creatinine 0.3 L (0.7-1.2) mg/dL Est GFR ( Amer) > 60 Est GFR (Non-Af Amer) > 60 Random Glucose 94 (65-105) mg/dL Calcium 9.3 (8.4-10.2) mg/dL Laboratory Results - last 24 hr 07/27/16 04:25 WBC 8.6 RBC 4.02 Hgb 11.3 L Hct 35.6 MCV 88.6 MCH 28.0 MCHC 31.7 L RDW 22.3 H Plt Count 181 Sodium 142 Potassium 4.0 Chloride 94 L Carbon Dioxide 39 H Anion Gap 13 BUN 11 Creatinine 0.3 L Est GFR ( Amer) > 60 Est GFR (Non-Af Amer) > 60 Random Glucose 94 Calcium 9.3 Review of Systems - Review of Systems Review of Systems: see HPI Critical Care Progress Note - Nutrition Nutrition: Nutrition Category Date Time Status NPO Diet [DIET] Diets 07/26/16 Breakfast Active Assessment/Plan - Assessment and Plan (Free Text) Plan: 66 yo F w PMHx of HTN, COPD, bilateral Breast cancer, h/o Hyperthyroidism is admitted to ICU for sob/dyspnea w/in setting of copd exacerbation 1) Acute on chronic respiratory failure with hypercapnea; setting of COPD -Pt's respiratory function/status is improving, she has been advanced to estrellita collar and is no longer experiencing any sob/dyspnea -Tracheotomy w [facility] collar FiO2 40% -Pt currently unable to eat full meal, cannot go for swallow eval, therefore she is in need of PEG tube -Abx therapy as per ID -Spironolactone 25mg PO Daily -Prednisone 20mg PO Daily -Duoneb 3mL RQ4H PRN -f/u ABGs -f/u respiratory function 2) Acute exacerbation of Systolic CHF -Echo (06/14): LVEF 40-45 %; Dilated RV with mild/mod decrease RV function, diastolic inflow pattern is restrictive -Spironolactone 25mg PO Daily -f/u strict I&Os -f/u Daily Wt 3) Tachycardia -Verapamil 180mg PO Daily -Metoprolol 12.5mg PO Q12H -f/u Vitals 4) VRE (vancomycin resistant enterococcus) culture positive -mandible osteomyelitis wound Cx+ resulted: VRE -Linezolid 600mg IVPB Q12H 5) Chronic Pain -Presently asymptomatic 6) Anxiety -Xanax 0.5mg PO Q8H PRN 7) Hyperthyroidism -Methimazole 5mg PO BID 8) Anemia -Stable 9) DVT Prophylaxis -Lovenox 40mg SC Daily 10) PUD Prophylaxis -Pepcid 40mg PO Daily <Florence-Landy Alvarado - Last Filed: 07/27/16 15:34> CCU Objective - Vital Signs / Intake & Output Vital Signs (Last 4 hours): Vital Signs Temp Pulse Resp BP Pulse Ox 07/27/16 12:00 97.6 F 85 16 78/55 L 100 Intake and Output (Last 8hrs): Intake & Output 07/27/16 07/27/16 07/27/16 06:59 14:59 22:59 Intake Total 480 450 Output Total 1000 Balance -520 450 Weight 117 lb Intake: Intake, Piggyback 450 Tube Feeding 280 Free Water Flush 200 Output: Gastric Amount 0 Stomach 0 Urine 1000 Urethral (Gutierrez) 1000 Other: # Bowel Movements 1 1 - Medications Active Medications: Active Medications Generic Name Dose Route Start Last Admin Trade Name Freq PRN Reason Stop Dose Admin Albuterol/Ipratropium 3 ml 07/19/16 12:00 07/27/16 11:19 Duoneb 3 Mg/0.5 Mg (3 Ml) Ud INH 3 ml RQID ADNREAS Administration Alprazolam 0.5 mg 07/21/16 17:45 07/27/16 09:58 Xanax PO 0.5 mg Q8 ANDREAS Administration Anastrozole 1 mg 07/07/16 09:00 07/27/16 09:49 Arimidex 1 Mg Tab PO 1 mg DAILY ANDREAS Administration Famotidine 40 mg 07/22/16 09:00 07/27/16 09:55 Pepcid PO 40 mg DAILY ANDRE[facility] Administration Gabapentin 600 mg 07/06/16 17:00 07/27/16 09:54 Neurontin PO 600 mg Q8 ANDREAS Administration Linezolid 300 mls @ 300 mls/hr 07/06/16 21:00 07/27/16 09:59 Zyvox 600mg/300ml D5w IVPB 300 mls/hr Q12 ANDREAS Administration Ceftazidime 1 gm/ Sodium 100 mls @ 200 mls/hr 07/24/16 17:00 07/27/16 09:51 Chloride IVPB 200 mls/hr Q8 ANDRE[facility] Administration Lactobacillus Acidophilus 1 cap 07/06/16 17:00 07/27/16 09:50 Bacid Acidophilus PO 1 cap BID ANDREAS Administration Loperamide HCl 2 mg 07/21/16 13:14 07/23/16 09:16 Imodium PO 2 mg QID PRN Administration Diarrhea Methimazole 5 mg 07/14/16 09:00 07/27/16 09:57 Tapazole PO 5 mg DAILY ANDREAS Administration Metoprolol Tartrate 12.5 mg 07/22/16 09:00 07/27/16 09:54 Lopressor PO 12.5 mg Q12 ANDREAS Administration Multi-Ingredient Cream 1 applic 07/06/16 17:00 07/27/16 09:53 Hydrocerin Cream TOP 1 applic BID ANDREAS Administration Nitroglycerin 1 in 07/06/16 16:00 07/27/16 09:55 Nitro-Bid 2% Oint TOP 1 in Q6 ANDREAS Administration Prednisone 20 mg 07/28/16 09:00 Prednisone Tab PO DAILY ANDREAS Spironolactone 25 mg 07/07/16 09:00 07/27/16 09:47 Aldactone PO 25 mg DAILY ANDREAS Administration Trimethoprim/Sulfamethoxazole 20 ml 07/17/16 21:00 07/27/16 09:57 Sulfatrim Pediatric Susp PO 20 ml Q12 ANDREAS Administration Verapamil HCl 180 mg 07/21/16 18:00 07/27/16 09:50 Calan Sr Tab PO 180 mg DAILY ANDREAS Administration - Patient Studies Lab Studies: Microbiology Studies 07/26/16 15:11 Gram Stain - Final Abscess - Cheek Wound Culture - Preliminary NO GROWTH AFTER 24 HOURS Lab Studies 07/27/16 07/26/16 Range/Units 04:25 16:47 WBC 8.6 (4.8-10.8) K/uL RBC 4.02 (3.80-5.20) Mil/uL Hgb 11.3 L (12.0-16.0) g/dL Hct 35.6 (34.0-47.0) % MCV 88.6 (81.0-99.0) fl MCH 28.0 (27.0-31.0) pg MCHC 31.7 L (33.0-37.0) g/dL RDW 22.3 H (11.5-14.5) % Plt Count 181 (130-400) K/uL Sodium 142 (132-148) mmol/l Potassium 4.0 (3.6-5.0) MMOL/L Chloride 94 L (98-107) mmol/L Carbon Dioxide 39 H (22-30) mmol/L Anion Gap 13 (10-20) BUN 11 (7-17) mg/dl Creatinine 0.3 L (0.7-1.2) mg/dL Est GFR ( Amer) > 60 Est GFR (Non-Af Amer) > 60 Random Glucose 94 (65-105) mg/dL Calcium 9.3 (8.4-10.2) mg/dL C. difficile Ag & Toxin Negative (NEGATIVE) Laboratory Results - last 24 hr 07/26/16 07/27/16 16:47 04:25 WBC 8.6 RBC 4.02 Hgb 11.3 L Hct 35.6 MCV 88.6 MCH 28.0 MCHC 31.7 L RDW 22.3 H Plt Count 181 Sodium 142 Potassium 4.0 Chloride 94 L Carbon Dioxide 39 H Anion Gap 13 BUN 11 Creatinine 0.3 L Est GFR ( Amer) > 60 Est GFR (Non-Af Amer) > 60 Random Glucose 94 Calcium 9.3 C. difficile Ag & Toxin Negative Critical Care Progress Note - Nutrition Nutrition: Nutrition Category Date Time Status NPO Diet [DIET] Diets 07/26/16 Breakfast Active Attending/Attestation - Attestation I have personally seen and examined this patient.: Yes I have fully participated in the care of the patient.: Yes I have reviewed all pertinent clinical information: Yes Notes (Text): 07/27/16 15:32 Patient seen and examined in the morning, doing really well. Much less anxiety issues. has tolerated trach collar all day very well even while getting her first PT session today. Currently sitting in the chair. Can write to communicate. Wants to go to [place] for rehabilitation. Awaiting for peg tube placement tomorrow and then placement, scheduled for tomorrow. Patient aware. No need for any labs.
--- NOTE | 2016-07-27 14:56 | CP.PCM.PN ---
Subjective - Date & Time of Evaluation Date of Evaluation: 07/27/16 Time of Evaluation: 09:00 - Subjective Subjective: Patient appears comfortable . Attempts at weaning continue but have been difficult with partial successes. Objective - Vital Signs/Intake and Output Vital Signs (last 24 hours): Temp Pulse Resp BP Pulse Ox 97.6 F 85 16 78/55 L 100 07/27/16 12:00 07/27/16 12:00 07/27/16 12:00 07/27/16 12:00 07/27/16 12:00 Intake and Output: 07/27/16 07/27/16 06:59 18:59 Intake Total 950 450 Output Total 1000 Balance -50 450 - Medications Medications: Current Medications Albuterol/Ipratropium (Duoneb 3 Mg/0.5 Mg (3 Ml) Ud) 3 ml INH RQID [facility] Last Admin: 07/27/16 11:19 Dose: 3 ml Alprazolam (Xanax) 0.5 mg PO Q8 [facility] Last Admin: 07/27/16 09:58 Dose: 0.5 mg Anastrozole (Arimidex 1 Mg Tab) 1 mg PO DAILY [facility] Last Admin: 07/27/16 09:49 Dose: 1 mg Famotidine (Pepcid) 40 mg PO DAILY [facility] Last Admin: 07/27/16 09:55 Dose: 40 mg Gabapentin (Neurontin) 600 mg PO Q8 [facility] Last Admin: 07/27/16 09:54 Dose: 600 mg Linezolid (Zyvox 600mg/300ml D5w) 300 mls @ 300 mls/hr IVPB Q12 [facility] Last Admin: 07/27/16 09:59 Dose: 300 mls/hr Ceftazidime 1 gm/ Sodium (Chloride) 100 mls @ 200 mls/hr IVPB Q8 [facility] Last Admin: 07/27/16 09:51 Dose: 200 mls/hr Lactobacillus Acidophilus (Bacid Acidophilus) 1 cap PO BID [facility] Last Admin: 07/27/16 09:50 Dose: 1 cap Loperamide HCl (Imodium) 2 mg PO QID PRN PRN Reason: Diarrhea Last Admin: 07/23/16 09:16 Dose: 2 mg Methimazole (Tapazole) 5 mg PO DAILY [facility] Last Admin: 07/27/16 09:57 Dose: 5 mg Metoprolol Tartrate (Lopressor) 12.5 mg PO Q12 [facility] Last Admin: 07/27/16 09:54 Dose: 12.5 mg Multi-Ingredient Cream (Hydrocerin Cream) 1 applic TOP BID [facility] Last Admin: 07/27/16 09:53 Dose: 1 applic Nitroglycerin (Nitro-Bid 2% Oint) 1 in TOP Q6 [facility] Last Admin: 07/27/16 09:55 Dose: 1 in Prednisone (Prednisone Tab) 20 mg PO DAILY [facility] Spironolactone (Aldactone) 25 mg PO DAILY [facility] Last Admin: 07/27/16 09:47 Dose: 25 mg Trimethoprim/Sulfamethoxazole (Sulfatrim Pediatric Susp) 20 ml PO Q12 [facility] Last Admin: 07/27/16 09:57 Dose: 20 ml Verapamil HCl (Calan Sr Tab) 180 mg PO DAILY [facility] Last Admin: 07/27/16 09:50 Dose: 180 mg - Labs Labs: 07/27/16 04:25 07/27/16 04:25 PT 12.0 SECONDS (9.6-11.2) H 07/19/16 04:20 INR 1.15 (0.92-1.08) H 07/19/16 04:20 APTT 27.7 SECONDS (23.3-32.5) 07/09/16 08:00 - Head Exam Head Exam: ATRAUMATIC - Eye Exam Eye Exam: EOMI - Respiratory Exam Respiratory Exam: Clear to Ausculation Bilateral - Cardiovascular Exam Cardiovascular Exam: REGULAR RHYTHM - GI/Abdominal Exam GI & Abdominal Exam: Soft, Normal Bowel Sounds. absent: Tenderness Assessment and Plan (1) Acute and chronic respiratory failure with hypercapnia Assessment & Plan: For PEG tomorrow in order to have reliable method of providing adequate nutrition Status: Acute
[2016-07-27] MEDS ORDERED: Lidocaine 5% Patch TD SCH (17:00)
[2016-07-27] MEDS: Lidocaine 5% Patch TD SCH (17:25)
--- NOTE | 2016-07-27 19:55 | PN ---
DATE: 07/27/2016 LOCATION: ICU, room 434. SUBJECTIVE: This is a 66-year-old female with overt hyperthyroidism, now on a low dose medical thera py, is tolerated very well. She is also undergoing close hemodynamic monitoring for recent congestiv e heart failure and exacerbation of COPD as noted. Her latest chemistry showed a BUN of 11, sodium 1 42, potassium 4.0, chloride 94, CO2 of 39, glucose 94, and creatinine 0.3. Her latest thyroid study showed a T4 of 3.83 with a TSH of 1.06. So at this time, we will continue her Tapazole given as 5 mg once daily in the morning as ordered. We will titrate incrementally as indicated to optimize metabo lic control. We will follow. Polly Vu MD cc: [id number] TT: 07/27/2016 19:54:28 Confirmation # [id number] Dictation # [id number] [email or web address]
[2016-07-28] MEDS: Nitroglycerin 2% 1GM UD TOP SCH ×4 (04:07→21:19)
--- NOTE | 2016-07-28 07:23 | CP.CCUPN ---
<StevenchelleHeladio byrne T - Last Filed: 07/28/16 14:12> CCU Subjective - Physician Review Subjective (Free Text): Pt is seen and examined at bedside in the ICU. Pt was comfortably lying supine w the trach collar attached, not exhibiting any signs of sob/dyspnea. She has no complaints of respiratory distress, sob, dyspnea, or gasping. She also states no overnight complaints or events, f/c/n/v/d/c, headaches, chest pain, abd pain, or myalgias. CCU Objective - Vital Signs / Intake & Output Vital Signs (Last 4 hours): Vital Signs Temp Pulse Resp BP Pulse Ox 07/28/16 06:00 93 H 16 104/67 100 07/28/16 04:00 98.1 F 85 18 96/64 L 700 H Intake and Output (Last 8hrs): Intake & Output 07/27/16 07/28/16 07/28/16 22:59 06:59 14:59 Intake Total 1100 180 Output Total 700 1500 Balance 400 -1320 Intake: IV 0 Intake, Piggyback 400 100 Oral 0 Tube Feeding 600 80 Free Water Flush 100 Output: Urine 700 1500 Urethral (Gutierrez) 700 1500 - Physical Exam Head: Positive for: Atraumatic. Negative for: Ecchymosis Pupils: Positive for: PERRL. Negative for: Sluggish, Non-Reactive Extroacular Muscles: Positive for: EOMI. Negative for: Gaze Palsy, Entrapment Conjunctiva: Positive for: Normal Mouth: Positive for: Moist Mucous Membranes, Dry Pharnyx: Positive for: Normal Neck: Positive for: Trachea Midline, Other (tracheotomy, clean). Negative for: MIDLINE TENDERNESS, Paraspinal Tenderness, JVD, Lymphadenopathy, Bruit Respiratory/Chest: Positive for: Good Air Exchange, Decreased Breath Sounds ( minimally b/l), Rhonchi (minimally b/l). Negative for: Respiratory Distress, Accessory Muscle Use, Wheezes, Tachypneic Cardiovascular: Positive for: Normal S1, S2, Peripheal Pulses Present, Tachycardic. Negative for: Murmurs, Irregular Rhythm Abdomen: Positive for: Normal Bowel Sounds. Negative for: Tenderness, Distention Upper Extremity: Positive for: NORMAL PULSES, Capillary Refill < 2s, Other (L arm presents w/o edema, normal pulses; Rt arm edema). Negative for: Cyanosis, Tenderness Lower Extremity: Positive for: Edema, NORMAL PULSES. Negative for: CALF TENDERNESS Neurological: Positive for: GCS=15, CN II-XII Intact, Other (trach) Skin: Positive for: Warm, Dry, Normal Color Psychiatric: Positive for: Alert, Oriented x 3 - Medications Active Medications: Active Medications Generic Name Dose Route Start Last Admin Trade Name Freq PRN Reason Stop Dose Admin Albuterol/Ipratropium 3 ml 07/19/16 12:00 07/27/16 19:31 Duoneb 3 Mg/0.5 Mg (3 Ml) Ud INH 3 ml RQID [facility] Administration Alprazolam 0.5 mg 07/21/16 17:45 07/27/16 23:38 Xanax PO 0.5 mg Q8 [facility] Administration Anastrozole 1 mg 07/07/16 09:00 07/27/16 09:49 Arimidex 1 Mg Tab PO 1 mg DAILY [facility] Administration Famotidine 40 mg 07/22/16 09:00 07/27/16 09:55 Pepcid PO 40 mg DAILY [facility] Administration Gabapentin 600 mg 07/06/16 17:00 07/27/16 23:38 Neurontin PO 600 mg Q8 [facility] Administration Linezolid 300 mls @ 300 mls/hr 07/06/16 21:00 07/27/16 20:05 Zyvox 600mg/300ml D5w IVPB 300 mls/hr Q12 [facility] Administration Ceftazidime 1 gm/ Sodium 100 mls @ 200 mls/hr 07/24/16 17:00 07/28/16 01:00 Chloride IVPB 200 mls/hr Q8 [facility] Administration Lactobacillus Acidophilus 1 cap 07/06/16 17:00 07/27/16 16:45 Bacid Acidophilus PO 1 cap BID [facility] Administration Lidocaine 1 ea 07/27/16 17:00 07/27/16 17:25 Lidoderm TD 1 ea DAILY [facility] Administration Loperamide HCl 2 mg 07/21/16 13:14 07/23/16 09:16 Imodium PO 2 mg QID PRN Administration Diarrhea Methimazole 5 mg 07/14/16 09:00 07/27/16 09:57 Tapazole PO 5 mg DAILY [facility] Administration Metoprolol Tartrate 12.5 mg 07/22/16 09:00 07/27/16 20:10 Lopressor PO 12.5 mg Q12 [facility] Administration Multi-Ingredient Cream 1 applic 07/06/16 17:00 07/27/16 16:46 Hydrocerin Cream TOP 1 applic BID [facility] Administration Nitroglycerin 1 in 07/06/16 16:00 07/28/16 04:07 Nitro-Bid 2% Oint TOP Not Given Q6 [facility] Prednisone 20 mg 07/28/16 09:00 Prednisone Tab PO DAILY [facility] Spironolactone 25 mg 07/07/16 09:00 07/27/16 09:47 Aldactone PO 25 mg DAILY [facility] Administration Trimethoprim/Sulfamethoxazole 20 ml 07/17/16 21:00 07/27/16 20:10 Sulfatrim Pediatric Susp PO 20 ml Q12 [facility] Administration Verapamil HCl 180 mg 07/21/16 18:00 07/27/16 09:50 Calan Sr Tab PO 180 mg DAILY [facility] Administration - Patient Studies Lab Studies: Microbiology Studies 07/26/16 15:11 Gram Stain - Final Abscess - Cheek Wound Culture - Preliminary NO GROWTH AFTER 24 HOURS Lab Studies 07/26/16 Range/Units 16:47 C. difficile Ag & Toxin Negative (NEGATIVE) Laboratory Results - last 24 hr 07/26/16 16:47 C. difficile Ag & Toxin Negative Review of Systems - Review of Systems Review of Systems: see HPI Critical Care Progress Note - Nutrition Nutrition: Nutrition Category Date Time Status NPO Diet [DIET] Diets 07/27/16 Breakfast Active Assessment/Plan - Assessment and Plan (Free Text) Plan: 66 yo F w PMHx of HTN, COPD, bilateral Breast cancer, h/o Hyperthyroidism is admitted to ICU for sob/dyspnea w/in setting of copd exacerbation 1) Acute on chronic respiratory failure with hypercapnea; setting of COPD -Pt's respiratory function/status is stable, she is on the trach collar at 40% FiO2 and is no longer experiencing any sob/dyspnea while supine -Continues to have quick dyspnea upon exertion at bedside upon exertion -PEG tube placed today -Bactrim IV -Linezolid IVPB Q12H -Spironolactone 25mg PO Daily -Prednisone 20mg PO Daily -Duoneb 3mL RQ4H PRN -f/u ABGs -f/u respiratory function -Will need continued PT for reconditioning 2) Acute exacerbation of Systolic CHF -Echo (06/14): LVEF 40-45 %; Dilated RV with mild/mod decrease RV function, diastolic inflow pattern is restrictive -Spironolactone 25mg PO Daily -f/u strict I&Os -f/u Daily Wt 3) Tachycardia -Verapamil 180mg PO Daily -Metoprolol 12.5mg PO Q12H -f/u Vitals 4) VRE (vancomycin resistant enterococcus) culture positive -mandible osteomyelitis wound Cx+ resulted: VRE -Linezolid 600mg IVPB Q12H 5) Chronic Pain -Presently asymptomatic 6) Anxiety -Xanax 0.5mg PO Q8H PRN 7) Hyperthyroidism -Methimazole 5mg PO BID 8) Anemia -Stable 9) DVT Prophylaxis -Lovenox 40mg SC Daily 10) PUD Prophylaxis -Pepcid 40mg PO Daily <Wayne Turcios - Last Filed: 07/28/16 16:19> CCU Subjective - Physician Review Subjective (Free Text): Attestation: Patient seen and examined at the bedside with Resident Dr. Thomas Louie; and I agree with his outline of plans and management documented below as discussed on AM rounds reflecting my review of all applicable clinical data, and participation in the care of the patient throughout the day in ICU; today, July 28, 2016.
[2016-07-28] MEDS: Albuterol-Ipratrop 3 mg / 0.5 (3 ml) UD INH SCH ×4 (07:41→19:16)
[2016-07-28] MEDS ORDERED: ceFAZolin 1 GM in Sodium Chloride 0.9% 100 ML IVPB STA (08:58)
[2016-07-28] MEDS ORDERED: Midazolam 2 MG/2 ML VIAL ONE (09:08)
[2016-07-28] MEDS ORDERED: Ketamine 50 mg/ml Inj (10 ml) ONE (09:09)
[2016-07-28] MEDS ORDERED: Propofol 10 mg/ml Inj (20 ML) ONE (09:09)
[2016-07-28] MEDS ORDERED: Lactated Ringer's 500 ML IV ONE ×2 (09:25→09:31)
[2016-07-28] MEDS: Lactobacillus Acidophilus 500 MU Cap PO SCH ×2 (09:38→16:39)
[2016-07-28] MEDS: Verapamil 180 mg ER Tab PO SCH ×2 (09:39→10:34)
[2016-07-28] MEDS: Hydrocerin CREAM TOP SCH ×2 (09:39→16:39)
[2016-07-28] MEDS: Tmp-Smz 200-40mg/5 ml Oral Sus(120 ml) PO SCH ×2 (09:41→20:44)
[2016-07-28] MEDS: Famotidine 40 MG/5 ML PO SCH (09:41)
[2016-07-28] MEDS: methIMAzole 5 MG TAB PO SCH ×2 (09:41→10:39)
[2016-07-28] MEDS: Lidocaine 5% Patch TD SCH (10:37)
[2016-07-28] MEDS: Linezolid 600 mg in D5W 300 ml 300 ML IVPB SCH ×2 (10:41→20:40)
--- NOTE | 2016-07-28 16:25 | PN ---
DATE: 07/28/2016 ROOM: 434 ICU SUBJECTIVE: This is a 66-year-old female with recent overt hyperthyroidism, currently biochemically and clinically euthyroid on a very low dose of medical therapy as given. Her latest chemistries show ed a BUN of 11, sodium 142, potassium 4.0, chloride 94, CO2 of 39, glucose 94, and creatinine 0.3. H er thyroid levels showed a T4 of 3.83 with a TSH of 1.06. So, at this time, we will continue the Tapazole given as 5 mg once daily as ordered. We will titrate incrementally as indicated to optimize metabolic control. We will follow. Polly Vu MD cc: [id number] TT: 07/28/2016 16:25:18 Confirmation # [id number] Dictation # [id number] sn
--- NOTE | 2016-07-28 16:30 | CP.PCM.PN ---
Subjective - Date & Time of Evaluation Date of Evaluation: 07/28/16 Time of Evaluation: 16:15 - Subjective Subjective: Hospitalist Progress Note (Patient was seen and examined at 4:15 PM 07/28/16 in 434-1. An attempt was made to see patient at 9:30 AM earlier today but patient was getting PEG Tube placed at that time) 66 year old female who was admitted on 06/04/16 for treatment of CHF Exacerbation , Acute on Chronic Respiratory Failure with Hypercapnia, COPD Exacerbation, Hyponatremia, and Right Mandibular Abscess. She has been intubated and extubated multiple times since her admission and is S/P Tracheostomy and currently on Trach. She had PEG Tube placed 07/28/16 Review of systems patient is able to answer Yes and NO: NO chest pain, NO palpitations, NO SOB/Cough/Wheezing, NO abdominal pain, NO soreness in throat, NO n/v, NO burning/pain with urination, NO lightheadedness/dizziness, NO paresthesias, NO new changes in vision/eye pain, NO new changes in hearing/ear pain. HEENT: NCA, EOMI, PERRLA, Oral Mucosa and Nasal Turbinates are dry, NO thyromegaly, NO cervical lymphadenopathy Cardio: NS1 and NS2, NO M/R/G Respirtory: Course breath sounds diffusely but improved compared to when I saw patient last , Scattered End expiratory wheezing is no longer present GI: BSx4, Soft, ND, NO HSM Ext: Right Arm/Hand Chronic Non Pitting Edema, NO edema in any of the other extremities, Capillary Refill is 2 seconds, Bilateral UE pulses are stronger than Bilateral LE pulses Skin: multiple bruises on upper chest and anterior shoulders Neurology: CN II through XII are grossly intact Assessment and Plan: 1). Acute on Chronic Respiratory Failure with Hypercapnia S/P Tracheostomy on Trach 2). Right Mandible Abscess S/P Drainage Osteomyelitis? Ceftazidime 1 gm IV Q8H 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 Thomas Heller is following and Hospitalist Dr. Camilo spoke with him 07/21/16 and patient is to be continued on the above antibiotics for now (she has completed more than 6 weeks of antibiotics) 3). Hx Hyperthyroidism Methimazole 5 mg NGT 1x/day 4). Hx Acute Exacerbation of COPD Duoneb Q6H Methylprednisolone 5 mg PO 1x/day 5). Hx Acute Exacerbation of CHF Metoprolol 12.5 mg PO Q12H : has a history of episodes of SVT while in the ICU Verapamil 180 mg NGT 1x/day Spironolactone 25 m NGT 1x/day 6). Hx HTN Metoprolol, Verapamil, Spironolactone as above 7). Hx Breast CA with Metastastis to Bone Arimidex 1 mg PO 1x/day 8). Hx Hyponatremia Resolved Monitor BMP 9). Hx Hypokalemia Resolved Monitor BMP On Spiranolactone and Lasix 10). Prophylactic Measures Xanax 0.5 mg NGT Q8H Lovenox 40 gm SQ 1x/day Pepcid 40 mg NGT 1x/day Lactobicillus 1 cap NGT BID Gabapentine 600 mg NGT Q8H Seroquel 12.5 mg NGT Q8H Lidoderm TD 1x/day Loperamide 2 mg NGT 4x/day PRN Diarrhea F/U C. diff toxin (07/26/16) for history of loose stools She is for LTAC when available. Objective - Vital Signs/Intake and Output Vital Signs (last 24 hours): Temp Pulse Resp BP Pulse Ox 97.9 F 82 21 96/61 L 100 07/28/16 16:00 07/28/16 16:00 07/28/16 16:00 07/28/16 16:00 07/28/16 16:00 Intake and Output: 07/28/16 07/28/16 06:59 18:59 Intake Total 700 500 Output Total 1500 500 Balance -800 0 - Medications Medications: Current Medications Albuterol/Ipratropium (Duoneb 3 Mg/0.5 Mg (3 Ml) Ud) 3 ml INH RQID [facility] Last Admin: 07/28/16 15:36 Dose: 3 ml Alprazolam (Xanax) 0.5 mg PO Q8 [facility] Last Admin: 07/28/16 10:40 Dose: 0.5 mg Anastrozole (Arimidex 1 Mg Tab) 1 mg PO DAILY [facility] Last Admin: 07/28/16 09:38 Dose: Not Given Famotidine (Pepcid) 40 mg PO DAILY [facility] Last Admin: 07/28/16 09:41 Dose: Not Given Gabapentin (Neurontin) 600 mg PO Q8 [facility] Last Admin: 07/28/16 09:40 Dose: Not Given Linezolid (Zyvox 600mg/300ml D5w) 300 mls @ 300 mls/hr IVPB Q12 [facility] Last Admin: 07/28/16 10:41 Dose: 300 mls/hr Lactobacillus Acidophilus (Bacid Acidophilus) 1 cap PO BID [facility] Last Admin: 07/28/16 09:38 Dose: Not Given Lidocaine (Lidoderm) 1 ea TD DAILY [facility] Last Admin: 07/28/16 10:37 Dose: 1 ea Loperamide HCl (Imodium) 2 mg PO QID PRN PRN Reason: Diarrhea Last Admin: 07/23/16 09:16 Dose: 2 mg Methimazole (Tapazole) 5 mg PO DAILY [facility] Last Admin: 07/28/16 10:39 Dose: 5 mg Metoprolol Tartrate (Lopressor) 12.5 mg PO Q12 [facility] Last Admin: 07/28/16 10:38 Dose: 12.5 mg Morphine Sulfate (Morphine) 2 mg IVP Q4 PRN PRN Reason: Pain, moderate (4-7) Last Admin: 07/28/16 13:00 Dose: 2 mg Multi-Ingredient Cream (Hydrocerin Cream) 1 applic TOP BID [facility] Last Admin: 07/28/16 09:39 Dose: 1 applic Nitroglycerin (Nitro-Bid 2% Oint) 1 in TOP Q6 [facility] Last Admin: 07/28/16 09:40 Dose: Not Given Prednisone (Prednisone Tab) 20 mg PO DAILY [facility] Last Admin: 07/28/16 10:39 Dose: 20 mg Spironolactone (Aldactone) 25 mg PO DAILY [facility] Last Admin: 07/28/16 10:33 Dose: 25 mg Trimethoprim/Sulfamethoxazole (Sulfatrim Pediatric Susp) 20 ml PO Q12 [facility] Last Admin: 07/28/16 09:41 Dose: Not Given Verapamil HCl (Calan Sr Tab) 180 mg PO DAILY [facility] Last Admin: 07/28/16 10:34 Dose: 180 mg - Labs Labs: 07/27/16 04:25 07/27/16 04:25 PT 12.0 SECONDS (9.6-11.2) H 07/19/16 04:20 INR 1.15 (0.92-1.08) H 07/19/16 04:20 APTT 27.7 SECONDS (23.3-32.5) 07/09/16 08:00
[2016-07-29] MEDS: Nitroglycerin 2% 1GM UD TOP SCH ×4 (04:18→22:10)
[2016-07-29] MEDS: Albuterol-Ipratrop 3 mg / 0.5 (3 ml) UD INH SCH ×4 (08:00→19:18)
[2016-07-29] MEDS: Hydrocerin CREAM TOP SCH (09:00)
[2016-07-29] MEDS: Famotidine 40 MG/5 ML PO SCH (09:00)
[2016-07-29] MEDS: Tmp-Smz 200-40mg/5 ml Oral Sus(120 ml) PO SCH ×2 (09:30→22:00)
[2016-07-29] MEDS: Verapamil 180 mg ER Tab PO SCH ×2 (09:55→10:02)
[2016-07-29] MEDS: Lidocaine 5% Patch TD SCH (09:56)
[2016-07-29] MEDS: Lactobacillus Acidophilus 500 MU Cap PO SCH (09:56)
--- NOTE | 2016-07-29 09:56 | CP.PCM.PN ---
Subjective - Date & Time of Evaluation Date of Evaluation: 07/29/16 Time of Evaluation: 09:53 - Subjective Subjective: Interim events reviewed. Had PEG tube placement w/o incident. Feedings ongoing w/o problems. Patient has remained on trach collar for supplemental oxygen for 5 days +. O2 saturation remains in the high 90's on 40%, reduced to 35% w/o change. Patient is awake and cooperative, mood is good, appears comfortable. Suctioning moderate amounts of mucoid secretions from trach. Vital signs remain stable, heart rate better, 80-90-100. Dependant edema has been improving steadily, no cyanosis. No dullness on percussion anteriorly. No subcut emphysema. Breath sounds are present bilaterally, diminished. Scattered sonorous rhonchi are heard bilaterally in dependant zones. No audible wheezing. Few medium rales posteriorly. Continue present antibiotic regimen. Physical and occupational therapies. Supplemental O2 via trach collar down to 35%. Medical regimen remains unchanged for now. Swallow eval and PEG tube nutritional maintenance. Plan for discharge to [facility] soon. Objective - Vital Signs/Intake and Output Vital Signs (last 24 hours): Temp Pulse Resp BP Pulse Ox 98.0 F 104 H 17 97/67 L 100 07/29/16 08:00 07/29/16 08:00 07/29/16 08:00 07/29/16 08:00 07/29/16 08:00 Intake and Output: 07/28/16 07/29/16 23:59 11:59 Intake Total 780 280 Output Total 500 300 Balance 280 -20 - Medications Medications: Current Medications Albuterol/Ipratropium (Duoneb 3 Mg/0.5 Mg (3 Ml) Ud) 3 ml INH RQID [facility] Last Admin: 07/29/16 08:00 Dose: 3 ml Alprazolam (Xanax) 0.5 mg PO Q8 [facility] Last Admin: 07/29/16 00:10 Dose: 0.5 mg Anastrozole (Arimidex 1 Mg Tab) 1 mg PO DAILY [facility] Last Admin: 07/28/16 09:38 Dose: Not Given Famotidine (Pepcid) 40 mg PO DAILY [facility] Last Admin: 07/28/16 09:41 Dose: Not Given Gabapentin (Neurontin) 600 mg PO Q8 [facility] Last Admin: 07/29/16 00:10 Dose: 600 mg Linezolid (Zyvox 600mg/300ml D5w) 300 mls @ 300 mls/hr IVPB Q12 [facility] Last Admin: 07/28/16 20:40 Dose: 300 mls/hr Lactobacillus Acidophilus (Bacid Acidophilus) 1 cap PO BID [facility] Last Admin: 07/28/16 16:39 Dose: 1 cap Lidocaine (Lidoderm) 1 ea TD DAILY [facility] Last Admin: 07/28/16 10:37 Dose: 1 ea Loperamide HCl (Imodium) 2 mg PO QID PRN PRN Reason: Diarrhea Last Admin: 07/23/16 09:16 Dose: 2 mg Methimazole (Tapazole) 5 mg PO DAILY [facility] Last Admin: 07/28/16 10:39 Dose: 5 mg Metoprolol Tartrate (Lopressor) 6.25 mg PO Q12 [facility] Last Admin: 07/28/16 20:43 Dose: 6.25 mg Morphine Sulfate (Morphine) 2 mg IVP Q4 PRN PRN Reason: Pain, moderate (4-7) Last Admin: 07/28/16 13:00 Dose: 2 mg Multi-Ingredient Cream (Hydrocerin Cream) 1 applic TOP BID [facility] Last Admin: 07/28/16 16:39 Dose: 1 applic Nitroglycerin (Nitro-Bid 2% Oint) 1 in TOP Q6 [facility] Last Admin: 07/29/16 04:18 Dose: 1 in Prednisone (Prednisone Tab) 20 mg PO DAILY [facility] Last Admin: 07/28/16 10:39 Dose: 20 mg Spironolactone (Aldactone) 25 mg PO DAILY [facility] Last Admin: 07/28/16 10:33 Dose: 25 mg Trimethoprim/Sulfamethoxazole (Sulfatrim Pediatric Susp) 20 ml PO Q12 [facility] Last Admin: 07/28/16 20:44 Dose: 20 ml Verapamil HCl (Calan Sr Tab) 180 mg PO DAILY [facility] Last Admin: 07/28/16 10:34 Dose: 180 mg - Labs Labs: 07/27/16 04:25 07/27/16 04:25 PT 12.0 SECONDS (9.6-11.2) H 07/19/16 04:20 INR 1.15 (0.92-1.08) H 07/19/16 04:20 APTT 27.7 SECONDS (23.3-32.5) 07/09/16 08:00 Assessment and Plan (1) Acute bronchitis with chronic obstructive pulmonary disease (COPD) Status: Acute (2) Hyperthyroidism Status: Chronic (3) Abscess Status: Resolved (4) Hypokalemia Status: Resolved (5) Osteomyelitis Status: Acute
[2016-07-29] MEDS ORDERED: Lidocaine 5% Patch TD SCH (09:57)
[2016-07-29] MEDS: methIMAzole 5 MG TAB PO SCH (09:58)
[2016-07-29] MEDS: Linezolid 600 mg in D5W 300 ml 300 ML IVPB SCH (10:00)
--- NOTE | 2016-07-29 14:59 | CP.PCM.PN ---
Subjective - Date & Time of Evaluation Date of Evaluation: 07/29/16 Time of Evaluation: 13:15 - Subjective Subjective: Hospitalist Progress Note (Patient was seen and examined at 1:15 PM 07/29/16 in 434-1). 66 year old female who was admitted on 06/04/16 for treatment of CHF Exacerbation , Acute on Chronic Respiratory Failure with Hypercapnia, COPD Exacerbation, Hyponatremia, and Right Mandibular Abscess. She has been intubated and extubated multiple times since her admission and is S/P Tracheostomy and currently on Trach. She had PEG Tube placed 07/28/16. She is scheduled for transfer to [facility] on Tuesday08/02/16. Review of systems patient is able to answer Yes and NO: NO chest pain, NO palpitations, NO SOB/Cough/Wheezing, (+) Abdominal pain at site of PEG Tube that is described as a soreness, NO soreness in throat, NO n/v, NO burning/pain with urination, NO lightheadedness/dizziness, NO paresthesias, NO new changes in vision/eye pain, NO new changes in hearing/ear pain. HEENT: NCA, EOMI, PERRLA, Oral Mucosa and Nasal Turbinates are dry, NO thyromegaly, NO cervical lymphadenopathy Cardio: NS1 and NS2, NO M/R/G Respirtory: Scattered course breath sounds diffusely (scattered end expiratory wheezes are no longer present on my exam) GI: BSx4, Soft, ND, NO HSM, PEG Tube insertion site without surrounding signs of cellulitis and there is no surrounding drainage Ext: Right Arm/Hand Chronic Non Pitting Edema, NO edema in any of the other extremities, Capillary Refill is 2 seconds, Bilateral UE pulses are stronger than Bilateral LE pulses Skin: multiple bruises on upper chest and anterior shoulders Neurology: CN II through XII are grossly intact Assessment and Plan: 1). Acute on Chronic Respiratory Failure with Hypercapnia S/P Tracheostomy on Trach 2). Right Mandible Abscess S/P Drainage Osteomyelitis? 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 Thomas Heller is following and Hospitalist Dr. Camilo spoke with him 07/21/16 and patient is to be continued on the above antibiotics for now (she has completed more than 6 weeks of antibiotics at this point) 3). Hx Hyperthyroidism Methimazole 5 mg PO 1x/day 4). Hx Acute Exacerbation of COPD Duoneb Q6H Methylprednisolone 5 mg PO 1x/day 5). Hx Acute Exacerbation of CHF Metoprolol 6.25 mg PO Q12H (has a history of episodes of SVT while in the ICU): please note this was further decreased today as patient's blood pressure was running low Verapamil 180 mg PO 1x/day Spironolactone 25 mg PO 1x/day 6). Hx HTN Metoprolol, Verapamil, Spironolactone as above 7). Hx Breast CA with Metastastis to Bone Arimidex 1 mg PO 1x/day 8). Hx Hyponatremia Resolved Monitor BMP 9). Hx Hypokalemia Resolved Monitor BMP On Spiranolactone and Lasix 10). Prophylactic Measures Xanax 0.5 mg PO Q8H Lovenox 40 gm SQ 1x/day Pepcid 40 mg PO 1x/day Lactobicillus 1 cap NGT BID Gabapentine 600 mg PO Q8H Lidoderm TD 1x/day Loperamide 2 mg PO 4x/day PRN Diarrhea F/U C. diff toxin (07/26/16) is NEGATIVE Patient is for [facility] on Tuesday08/02/16. Objective - Vital Signs/Intake and Output Vital Signs (last 24 hours): Temp Pulse Resp BP Pulse Ox 98.0 F 109 H 17 97/57 L 100 07/29/16 08:00 07/29/16 10:02 07/29/16 08:00 07/29/16 10:02 07/29/16 08:00 Intake and Output: 07/29/16 07/29/16 06:59 18:59 Intake Total 980 Output Total 300 Balance 680 - Medications Medications: Current Medications Albuterol/Ipratropium (Duoneb 3 Mg/0.5 Mg (3 Ml) Ud) 3 ml INH RQID COUNTS INCLUDE 234 BEDS AT THE [facility] Last Admin: 07/29/16 11:09 Dose: 3 ml Alprazolam (Xanax) 0.5 mg PO Q8 COUNTS INCLUDE 234 BEDS AT THE [facility] Last Admin: 07/29/16 10:01 Dose: 0.5 mg Anastrozole (Arimidex 1 Mg Tab) 1 mg PO DAILY COUNTS INCLUDE 234 BEDS AT THE [facility] Last Admin: 07/29/16 09:53 Dose: 1 mg Famotidine (Pepcid) 40 mg PO DAILY COUNTS INCLUDE 234 BEDS AT THE [facility] Last Admin: 07/28/16 09:41 Dose: Not Given Gabapentin (Neurontin) 600 mg PO Q8 COUNTS INCLUDE 234 BEDS AT THE [facility] Last Admin: 07/29/16 00:10 Dose: 600 mg Lactobacillus Acidophilus (Bacid Acidophilus) 1 cap PO BID COUNTS INCLUDE 234 BEDS AT THE [facility] Last Admin: 07/29/16 09:56 Dose: 1 cap Lidocaine (Lidoderm) 1 ea TD DAILY COUNTS INCLUDE 234 BEDS AT THE [facility] Linezolid (Zyvox) 600 mg PO Q12 COUNTS INCLUDE 234 BEDS AT THE [facility] Loperamide HCl (Imodium) 2 mg PO QID PRN PRN Reason: Diarrhea Last Admin: 07/23/16 09:16 Dose: 2 mg Methimazole (Tapazole) 5 mg PO DAILY COUNTS INCLUDE 234 BEDS AT THE [facility] Last Admin: 07/29/16 09:58 Dose: 5 mg Metoprolol Tartrate (Lopressor) 6.25 mg PO Q12 COUNTS INCLUDE 234 BEDS AT THE [facility] Last Admin: 07/28/16 20:43 Dose: 6.25 mg Morphine Sulfate (Morphine) 2 mg IVP Q4 PRN PRN Reason: Pain, moderate (4-7) Last Admin: 07/28/16 13:00 Dose: 2 mg Multi-Ingredient Cream (Hydrocerin Cream) 1 applic TOP BID COUNTS INCLUDE 234 BEDS AT THE [facility] Last Admin: 07/28/16 16:39 Dose: 1 applic Nitroglycerin (Nitro-Bid 2% Oint) 1 in TOP Q6 COUNTS INCLUDE 234 BEDS AT THE [facility] Last Admin: 07/29/16 04:18 Dose: 1 in Prednisone (Prednisone Tab) 20 mg PO DAILY COUNTS INCLUDE 234 BEDS AT THE [facility] Last Admin: 07/28/16 10:39 Dose: 20 mg Spironolactone (Aldactone) 25 mg PO DAILY COUNTS INCLUDE 234 BEDS AT THE [facility] Last Admin: 07/29/16 09:52 Dose: 25 mg Trimethoprim/Sulfamethoxazole (Sulfatrim Pediatric Susp) 20 ml PO Q12 COUNTS INCLUDE 234 BEDS AT THE [facility] Last Admin: 07/28/16 20:44 Dose: 20 ml Verapamil HCl (Calan Sr Tab) 180 mg PO DAILY COUNTS INCLUDE 234 BEDS AT THE [facility] Last Admin: 07/29/16 10:02 Dose: 180 mg - Labs Labs: 07/27/16 04:25 07/27/16 04:25 PT 12.0 SECONDS (9.6-11.2) H 07/19/16 04:20 INR 1.15 (0.92-1.08) H 07/19/16 04:20 APTT 27.7 SECONDS (23.3-32.5) 07/09/16 08:00
--- NOTE | 2016-07-29 16:18 | PN ---
DATE: 07/29/2016 ROOM: 434, ICU. This is a 66-year-old female with recent hypothyroidism and currently is tolerating her low dose medi susan therapy with Tapazole 5 mg as given daily and is now being followed closely for metabolic managem ent. She also is being followed closely for hemodynamic monitoring because of recent congestive hear t failure as noted thereof. Her latest chemistry showed a BUN of 11, sodium 142, potassium 4.0, chloride 94, CO2 of 39, glucose 9 4, and creatinine 0.3. Her latest thyroid study showed a T4 of 3.83 with a TSH of 1.06. So at this time, will continue the low-dose Tapazole given as 5 mg once daily as ordered. Will titra te incrementally as indicated to optimize metabolic control. Will follow. Polly Vu MD cc: [id number] TT: 07/29/2016 16:18:05 Confirmation # [id number] Dictation # [id number] roberta
[2016-07-30] MEDS: Nitroglycerin 2% 1GM UD TOP SCH ×2 (04:00→09:12)
[2016-07-30] MEDS: Albuterol-Ipratrop 3 mg / 0.5 (3 ml) UD INH SCH ×3 (07:24→16:31)
[2016-07-30] MEDS ORDERED: Enoxaparin 40 mg Syringe SC SCH (09:00)
[2016-07-30] MEDS: Lactobacillus Acidophilus 500 MU Cap PO SCH (09:07)
[2016-07-30] MEDS: Verapamil 180 mg ER Tab PO SCH (09:08)
[2016-07-30] MEDS: Hydrocerin CREAM TOP SCH (09:09)
[2016-07-30] MEDS: Famotidine 40 MG/5 ML PO SCH (09:14)
[2016-07-30] MEDS: methIMAzole 5 MG TAB PO SCH (09:16)
[2016-07-30] MEDS: Tmp-Smz 200-40mg/5 ml Oral Sus(120 ml) PO SCH (09:16)
--- NOTE | 2016-07-30 10:17 | CP.PCM.PN ---
Subjective - Date & Time of Evaluation Date of Evaluation: 07/30/16 Time of Evaluation: 10:17 - Subjective Subjective: Interim events noted. Patient had Speech eval for swallowing yesterday. Tolerated dyed applesauce without problems of signs of penetration. Remains on trach collar with 35% oxygen. No SOB. Suctioned small volume ot florez, mucoid secretions. Has completed 5 weeks of IV linezolid today. Has completed 3 weeks of PO Bactrim suspension. Abscess culture drainage now 'no growth'. PEG feedings ongoing without incident. Patient is awake, comfortable. No drainage from the abscess incision. No swelling. Tracheostomy is clean, #[address] with cuff deflated. Breath sounds are diminished bilaterally w/o audible wheezes. Scattered sonorous rhonchi. Few dependanr rales both lower lobes. Few scattered ecchymoses over the upper anterior chest wall. Heart sounds are distant, rhythm regular, rate 90-100BPM. Abdomen with PEG tube in place. For video swallow this morning. Plain CXR as well for followup. Continue linezolid for one week more (switched to PO). Continue trimethoprim/sulfa suspension for one more week as well. Will probably change trach today to #6 uncuffed. For discharge to [facility] later today. Reduce prednisone to 15MG once daily. Objective - Vital Signs/Intake and Output Vital Signs (last 24 hours): Temp Pulse Resp BP Pulse Ox 97.8 F 101 H 16 110/66 96 07/30/16 08:00 07/30/16 09:10 07/30/16 08:00 07/30/16 09:10 07/30/16 08:00 Intake and Output: 07/29/16 07/30/16 23:59 11:59 Intake Total 160 320 Output Total 900 700 Balance -660 -380 - Medications Medications: Current Medications Albuterol/Ipratropium (Duoneb 3 Mg/0.5 Mg (3 Ml) Ud) 3 ml INH RQID [facility] Last Admin: 07/30/16 07:24 Dose: 3 ml Alprazolam (Xanax) 0.5 mg PO Q8 [facility] Last Admin: 07/30/16 09:17 Dose: 0.5 mg Anastrozole (Arimidex 1 Mg Tab) 1 mg PO DAILY [facility] Last Admin: 07/30/16 09:06 Dose: 1 mg Enoxaparin Sodium (Lovenox) 40 mg SC DAILY [facility] PRN Reason: Protocol Last Admin: 07/30/16 09:11 Dose: 40 mg Famotidine (Pepcid) 40 mg PO DAILY [facility] Last Admin: 07/30/16 09:14 Dose: 40 mg Gabapentin (Neurontin) 600 mg PO Q8 [facility] Last Admin: 07/30/16 09:11 Dose: 600 mg Lactobacillus Acidophilus (Bacid Acidophilus) 1 cap PO BID [facility] Last Admin: 07/30/16 09:07 Dose: 1 cap Lidocaine (Lidoderm) 1 ea TD DAILY [facility] Last Admin: 07/30/16 09:09 Dose: 1 ea Loperamide HCl (Imodium) 2 mg PO QID PRN PRN Reason: Diarrhea Last Admin: 07/23/16 09:16 Dose: 2 mg Methimazole (Tapazole) 5 mg PO DAILY [facility] Last Admin: 07/30/16 09:16 Dose: 5 mg Metoprolol Tartrate (Lopressor) 6.25 mg PO Q12 [facility] Last Admin: 07/30/16 09:10 Dose: 6.25 mg Morphine Sulfate (Morphine) 2 mg IVP Q4 PRN PRN Reason: Pain, moderate (4-7) Last Admin: 07/28/16 13:00 Dose: 2 mg Multi-Ingredient Cream (Hydrocerin Cream) 1 applic TOP BID [facility] Last Admin: 07/30/16 09:09 Dose: 1 applic Nitroglycerin (Nitro-Bid 2% Oint) 1 in TOP Q6 [facility] Last Admin: 07/30/16 09:12 Dose: 1 in Prednisone (Prednisone Tab) 20 mg PO DAILY [facility] Last Admin: 07/30/16 09:16 Dose: 20 mg Spironolactone (Aldactone) 25 mg PO DAILY [facility] Last Admin: 07/30/16 09:05 Dose: 25 mg Trimethoprim/Sulfamethoxazole (Sulfatrim Pediatric Susp) 20 ml PO Q12 [facility] Last Admin: 07/30/16 09:16 Dose: 20 ml Verapamil HCl (Calan Sr Tab) 180 mg PO DAILY [facility] Last Admin: 07/30/16 09:08 Dose: 180 mg - Labs Labs: 07/27/16 04:25 07/27/16 04:25 PT 12.0 SECONDS (9.6-11.2) H 07/19/16 04:20 INR 1.15 (0.92-1.08) H 07/19/16 04:20 APTT 27.7 SECONDS (23.3-32.5) 07/09/16 08:00 Assessment and Plan (1) Acute bronchitis with chronic obstructive pulmonary disease (COPD) Status: Acute (2) Hyperthyroidism Status: Chronic (3) Osteomyelitis Status: Acute
[2016-07-30] MEDS ORDERED: Barium Sulfate Susp 0.1% w/v, 0.1% w/w 450 mL Bottle PO ONE (11:01)
[2016-07-30] MEDS ORDERED: Hydrogen Peroxide 3% Soln (480ml) TP ONE (11:56)
--- NOTE | 2016-07-30 11:57 | CP.PCM.DIS ---
Provider - Provider Date of Admission: 06/04/16 11:59 Attending physician: Josefa Pimentel DO Primary care physician: Dr. Benz Consults: pulmonary consult Cardio consult Podiatry Nephro wound ENt maxillofacial consult anesthesiology Id consult Hematology surgery endo consult PT/OT 06/04/16 12:40 Nursing Referral for Wound Care Routine Comment: Physician Instructions: Reason For Exam: SCABS ON KNEES Time Spent in preparation of Discharge (in minutes): 20 Hospital Course - Lab Results Lab Results: Micro Results 07/26/16 15:11 Abscess - Cheek Gram Stain - Final 07/26/16 15:11 Abscess - Cheek Wound Culture - Final No growth. 07/07/16 10:17 Bronchial Washings Bronchial Culture - Final Stenotrophomonas Maltophilia 07/06/16 Unknown Face Gram Stain - Final 07/06/16 Unknown Face Wound Culture - Final No growth. 06/24/16 16:00 Other: Please Indicate Gram Stain - Final 06/24/16 16:00 Other: Please Indicate Body Fluid Culture - Final No growth. 06/24/16 11:45 Abscess - Abscess Gram Stain - Final 06/24/16 11:45 Abscess - Abscess Wound Culture - Final Vancomycin Resistant E.faecium Bria Albicans 06/24/16 Unknown Abscess - Abscess Anaerobic Culture - Final NO ANAEROBES ISOLATED. 06/18/16 21:40 Naris MRSA Culture (Admit) - Final MRSA NOT DETECTED 06/04/16 16:00 Blood Blood Culture - Final NO GROWTH AFTER 5 DAYS 06/04/16 16:00 Blood Gram Stain - Final TEST NOT PERFORMED 06/04/16 15:35 Blood Blood Culture - Final NO GROWTH AFTER 5 DAYS 06/04/16 15:35 Blood Gram Stain - Final TEST NOT PERFORMED 06/04/16 18:00 Mouth Gram Stain - Final 06/04/16 18:00 Mouth Wound Culture - Final NORMAL SAPROPHYTIC NORMA Most Recent Lab Values WBC 8.6 K/uL (4.8-10.8) 07/27/16 04:25 RBC 4.02 Mil/uL (3.80-5.20) 07/27/16 04:25 Hgb 11.3 g/dL (12.0-16.0) L 07/27/16 04:25 Hct 35.6 % (34.0-47.0) 07/27/16 04:25 MCV 88.6 fl (81.0-99.0) 07/27/16 04:25 MCH 28.0 pg (27.0-31.0) 07/27/16 04:25 MCHC 31.7 g/dL (33.0-37.0) L 07/27/16 04:25 RDW 22.3 % (11.5-14.5) H 07/27/16 04:25 Plt Count 181 K/uL (130-400) 07/27/16 04:25 MPV 7.8 fl (7.2-11.7) 07/25/16 08:00 Neut % (Auto) 84.3 % (50.0-75.0) H 07/25/16 08:00 Lymph % (Auto) 4.4 % (20.0-40.0) L 07/25/16 08:00 Tompkins % (Auto) 11.2 % (0.0-10.0) H 07/25/16 08:00 Eos % (Auto) 0.0 % (0.0-4.0) 07/25/16 08:00 Baso % (Auto) 0.1 % (0.0-2.0) 07/25/16 08:00 Neut # 6.3 K/uL (1.8-7.0) 07/25/16 08:00 Lymph # 0.3 K/uL (1.0-4.3) L 07/25/16 08:00 Tompkins # 0.8 K/uL (0.0-0.8) 07/25/16 08:00 Eos # 0.0 K/uL (0.0-0.7) 07/25/16 08:00 Baso # 0.0 K/uL (0.0-0.2) 07/25/16 08:00 Total Counted Cancelled 07/19/16 04:20 Neutrophils % (Manual) 88 % (42-75) H 07/26/16 04:20 Band Neutrophils % 1 % (0-2) 07/23/16 06:00 Lymphocytes % (Manual) 3 % (20-50) L 07/26/16 04:20 Reactive Lymphs % 4 % (0-0) H 07/26/16 04:20 Monocytes % (Manual) 5 % (0-10) 07/26/16 04:20 Eosinophils % (Manual) Cancelled 07/19/16 04:20 Basophils % (Manual) 1 % (0-2) 07/12/16 05:00 Metamyelocytes % Cancelled 07/19/16 04:20 Myelocytes % 2 % (0-0) H 06/21/16 04:30 Promyelocytes % Cancelled 07/19/16 04:20 Blast Cells % Cancelled 07/19/16 04:20 Plasma Cell % (Manual) Cancelled 07/19/16 04:20 Nucleated RBC % 1 % (0-0) H 07/26/16 04:20 Hypersegmented Polys Cancelled 07/19/16 04:20 Smudge Cells Present 07/20/16 05:40 Toxic Granulation Present 07/12/16 05:00 Dohle Bodies Cancelled 07/19/16 04:20 Christie Rods Cancelled 07/19/16 04:20 Platelet Estimate Normal (NORMAL) 07/26/16 04:20 Plt Clumps, EDTA Present 06/21/16 04:30 Large Platelets Present 07/23/16 06:00 Giant Platelets Present 06/21/16 04:30 RBC Morphology Cancelled 07/19/16 04:20 Polychromasia Cancelled 07/19/16 04:20 Hypochromasia (manual) Slight 07/20/16 05:40 Poikilocytosis (manual Slight 07/26/16 04:20 Basophilic Stippling Cancelled 07/19/16 04:20 Anisocytosis (manual) Slight 07/26/16 04:20 Microcytosis (manual) Slight 07/17/16 06:00 Macrocytosis (manual) Slight 07/17/16 06:00 Spherocytes Cancelled 07/19/16 04:20 Sickle Cells Cancelled 07/19/16 04:20 Target Cells Slight 07/23/16 06:00 Tear Drop Cells Slight 07/12/16 05:00 Ovalocytes Slight 07/26/16 04:20 Stomatocytes Slight 07/23/16 06:00 Helmet Cells Cancelled 07/19/16 04:20 Armendariz-[place] Bodies Cancelled 07/19/16 04:20 Derby Cells Cancelled 07/19/16 04:20 Acanthocytes (Spur) Slight 06/05/16 05:30 Rouleaux Cancelled 07/19/16 04:20 Schistocytes Slight 07/15/16 05:00 ESR 14 mm/hr (0-30) 06/06/16 06:00 PT 12.0 SECONDS (9.6-11.2) H 07/19/16 04:20 INR 1.15 (0.92-1.08) H 07/19/16 04:20 APTT 27.7 SECONDS (23.3-32.5) 07/09/16 08:00 pCO2 68 mm/Hg (35-45) H 07/24/16 05:35 pO2 147 mm/Hg (80-100) H 07/24/16 05:35 HCO3 35.6 mmol/L (21-28) H 07/24/16 05:35 ABG pH 7.39 (7.35-7.45) 07/24/16 05:35 ABG Total CO2 43.3 mmol/L (22-28) H 07/24/16 05:35 ABG O2 Saturation 99.4 % (95-98) H 07/24/16 05:35 ABG O2 Content 15.1 ML/dL (15-23) 07/24/16 05:35 ABG Base Excess 13.7 mmol/L (-2.0-3.0) H 07/24/16 05:35 ABG Hemoglobin 10.9 g/dL (11.7-17.4) L 07/24/16 05:35 ABG Carboxyhemoglobin 1.5 % (0.5-1.5) 07/24/16 05:35 POC ABG HHb (Measured) 0.6 % (0.0-5.0) 07/24/16 05:35 ABG Methemoglobin 1.0 % (0.0-3.0) 07/24/16 05:35 ABG O2 Capacity 15.2 mL/dL (16-24) L 07/24/16 05:35 Tawanda Test Yes 07/24/16 05:35 A-a O2 Difference 125.0 mm/Hg 07/24/16 05:35 Hgb O2 Saturation 96.8 % (95.0-98.0) 07/24/16 05:35 Liter Flow 30 06/26/16 16:20 Vent Mode Cpap 07/24/16 05:35 Mechanical Rate 12 07/23/16 05:01 FiO2 50.0 % 07/24/16 05:35 Tidal Volume 400 07/23/16 05:01 PEEP 5 07/24/16 05:35 Pressure Support 5 07/24/16 05:35 Blood Gas Comments 40%t piece 07/07/16 10:56 Crit Value Called To Manuel richard 07/07/16 10:56 Crit Value Called By 15 07/07/16 10:56 Crit Value Read Back Y 07/07/16 10:56 Blood Gas Notified Time 506 07/17/16 05:03 Sodium 142 mmol/l (132-148) 07/27/16 04:25 Potassium 4.0 MMOL/L (3.6-5.0) 07/27/16 04:25 Chloride 94 mmol/L (98-107) L 07/27/16 04:25 Carbon Dioxide 39 mmol/L (22-30) H 07/27/16 04:25 Anion Gap 13 (10-20) 07/27/16 04:25 BUN 11 mg/dl (7-17) 07/27/16 04:25 Creatinine 0.3 mg/dL (0.7-1.2) L 07/27/16 04:25 Est GFR ( Amer) > 60 07/27/16 04:25 Est GFR (Non-Af Amer) > 60 07/27/16 04:25 POC Glucose (mg/dL) 100 mg/dL (65-110) 07/17/16 16:46 Random Glucose 94 mg/dL (65-105) 07/27/16 04:25 Calcium 9.3 mg/dL (8.4-10.2) 07/27/16 04:25 Phosphorus 3.5 mg/dl (2.5-4.5) 07/08/16 05:44 Magnesium 1.9 MG/DL (1.6-2.3) 07/08/16 05:44 Iron 24 ug/dL (37-170) L 06/14/16 10:56 TIBC 235 ug/dL (250-450) L 06/14/16 10:56 % Saturation 10 % (20-55) L 06/14/16 10:56 Ferritin 19.0 ng/mL 06/14/16 10:56 Total Bilirubin 0.2 mg/dl (0.2-1.3) 07/25/16 08:00 AST 22 U/L (14-36) 07/25/16 08:00 ALT 69 U/L (9-52) H D 07/25/16 08:00 Alkaline Phosphatase 135 U/L (38-126) H 07/25/16 08:00 Troponin I 0.0230 ng/mL (0.00-0.120) 07/03/16 15:44 NT-Pro-B Natriuret Pep 3230 pg/ml (0-900) H 06/03/16 22:39 Total Protein 5.1 G/DL (6.3-8.2) L 07/25/16 08:00 Albumin 2.6 g/dL (3.5-5.0) L 07/25/16 08:00 Globulin 2.4 gm/dL (2.2-3.9) 07/25/16 08:00 Albumin/Globulin Ratio 1.1 (1.0-2.1) 07/25/16 08:00 Lipase 53 U/L (23-300) 06/03/16 22:39 Renin 2.76 ng/mL/h (0.25-5.82) 06/26/16 16:45 Aldosterone 1 ng/dL (()) 06/26/16 16:45 Aldosterone/Renin Ratio 0.4 Ratio (0.9-28.9) L 06/26/16 16:45 Vitamin B12 848 pg/mL (239-931) 06/14/16 10:56 Folate 6.8 ng/mL 06/14/16 10:56 Procalcitonin 0.13 NG/ML (0.19-0.49) L 06/16/16 04:10 Free T4 0.79 ng/dL (0.78-2.19) 07/12/16 05:00 Thyroxine (T4) 3.83 ug/dl (5.5-11.0) L 07/20/16 05:40 Free T3 pg/mL 0.6 pg/mL (2.3-4.2) L 06/04/16 08:10 TSH 3rd Generation 1.06 mIU/ML (0.46-4.68) 07/20/16 05:40 Thyroid Stim Immunoglob 110 % baseline (<140) 06/05/16 05:30 Cortisol AM Sample 12.8 ug/dL (4.46-22.7) 06/05/16 05:30 Urine Color Yellow (YELLOW) 06/04/16 00:50 Urine Clarity Clear (Clear) 06/04/16 00:50 Urine pH 6.0 (5.0-8.0) 06/04/16 00:50 Ur Specific Hobbs 1.020 (1.003-1.030) 06/04/16 00:50 Urine Protein Negative mg/dL (NEGATIVE) 06/04/16 00:50 Urine Glucose (UA) Neg mg/dL (Normal) 06/04/16 00:50 Urine Ketones 20 mg/dL (NEGATIVE) 06/04/16 00:50 Urine Blood Negative (NEGATIVE) 06/04/16 00:50 Urine Nitrate Negative (NEGATIVE) 06/04/16 00:50 Urine Bilirubin Negative (NEGATIVE) 06/04/16 00:50 Urine Urobilinogen 0.2-1.0 mg/dL (0.2-1.0) 06/04/16 00:50 Ur Leukocyte Esterase Neg Ben/uL (Negative) 06/04/16 00:50 Urine RBC (Auto) 2 /hpf (0-3) 06/04/16 00:50 Urine Microscopic WBC 2 /hpf (0-5) 06/04/16 00:50 Hyaline Casts 0-2 /hpf (0-2) 06/04/16 00:50 Ur Random Sodium 63 meq/L 07/02/16 04:00 Ur Random Potassium 57.1 mmol/L 07/02/16 04:00 Urine Total Volume Not given mL (()) 07/16/16 07:13 Ur 24 Hour Volume 2400 mL/24 h (()) 07/16/16 07:13 Urine Chloride 186 mmol/L (32-290) 06/26/16 18:00 VMA/Creatinine Ratio 15.0 mg/g creat (1.1-4.1) H 07/16/16 14:00 Urine 5-HIAA 24 Hour 36.7 mg/24 h (<=6.0) H 07/16/16 07:13 Urine Metanephrine TNP 07/16/16 07:13 U Normetanephrine TNP 07/16/16 07:13 U Tot Metanephrine 24h TNP 07/16/16 07:13 Vancomycin Trough 14.5 ug/mL (5.0-10.0) H 06/19/16 04:00 Theophylline 15.3 ug/ml (10-20) 06/30/16 04:10 Thyroperoxidase Ab <1 IU/mL (<9) 06/05/16 05:30 C. difficile Ag & Toxin Negative (NEGATIVE) 07/26/16 16:47 Anti-Staphylolysin O Negative (NEGATIVE) 06/06/16 06:00 Blood Type O NEGATIVE 07/18/16 12:15 Antibody Screen Negative 07/18/16 12:15 Crossmatch See Detail 07/14/16 08:15 BBK History Checked Patient has bt 07/18/16 12:15 - Hospital Course Hospital Course: 66 y/o female PMH COPD, bilateral breast CA s/p chemo and radiation 8 years ago , HTN, Hyperthyroidism presented with 2 week history of worsening bilateral lower extremity swelling and weakness. She also came with a large right facial swelling for almost 2 weeks. Patient was admitted for generalized weakness , Hyponatremia and Facial abscess. She was started on IV antibiotics for facial abscess and Lasix IV with fluid restriction for LE edema. Maxillofacial Ct showed possible abscess accumulation. Evaluated by Oromaxillofacial surgeon and underwent Incision and drainage of abscess. Bone scan showed possible osteomyelitis During this hospitalization noted to have increased dyspnea at rest and more so with minimal activity, decreased air entry bilaterally and increased work of breathing. She was started on high flow O2, Higher doses of theophylline and IV hydrocortisone. CTA chest and LE doppler showed no DVT. She was transferred to ICU for close monitoring for tachypnea and tachycardia. She underwent IR drainage on 06/24 of right facial abscess due to re accumulation and cultures came positive for VRE and bria. Antibiotics were changed to Zyvox , Meropenem and Fluconazone. Despite drainage and IV antibiotics she still kept complaining of pain to right supramandibular area with increased swelling. Repeat CT showed abscess formation. Patient underwent I&D in OR 07/06/16 with cynthia drainage placement. She continued to have episodes of resp distress - tachypneic , tachycardic , with chest congestion , unable to expectorate despite high flow O2 therapy, Duonebs and Corticosteroids. 07/07/16 underwent Bronchoscopy. BAL showed Stenotrophomonas Maltophilia. Antibiotics changed to IV bactrim, Fortaz, Zyvox and Fluconazole. On 07/09 she developed severe respiratory distress with hypoxemia requiring intubation . Patient failed multiple attempts of extubation and at present s/p T5rach placement 07/19. Due to swallow difficulty peg tube was placed . She received IV antibiotics for 6 weeks At present patient is in trache collar wih FIO2 40 5 , saturati ng well, hemodynamically stable, afebrile. Her LE kamryn ahas resolved. wound to right cheeck totally healed Video swallow eval done before discharge showed no aspiration so patient started on honey thick as per director of special services patient will be discharged to [facility] today Will continue Zyvox and Bactrim 1 mor mauricek Continue peg feeding for now Physical therapy at rehab 1. Acute on Chronic Respiratory Failure with hypercapnea Multiple trials of intubation and extubation , failed extubation s/p Tracheostomy 07/19 Pulmonary: Dr Benz, consulted Now on Trach collar 40% tolearting well CXR : no infiltrate, no PTX Bronchoscopy 07/07/16 with BAL: Stenotrophomonas maltophilla. Received Iv antibiotics for 6 weeks Solumedrol IV changed to PO Prednisone cont Duoneb tx Will continue Zyvox and bactrim 1 more week 2. Facial abscess with mandibular Osteomyelitis s/p drainage of abscess and I& D s/p Incision and drainage on 06/[address] Ambrose maxillofacial surgeon and rpt I&D 07/06 pathology report showed inflammatory cells, no malignancy Nuclear Bone Scan suggestive of osteomyelitis initial cultures were with no growth ID consulted Dr Obrien underwent drainage of facial collection by IR on 06/24 Cultures reported as VRE and Bria On Zyvox , Bactrim, Fortaz ( received 6 wks total IV abx ) - discussed with Dr Obrien - rec to continue bactrim and Zyvocx for 1 more week 3. Recurrent Chest Pain episodes , prob sec to Anxiety, ACS ruled out with recurrent pressure like chest pain on and off cardiology consulted Dr. Luu Trop -- negative and EKG showed no ST-T wave changes Most likely atypical chest pain related to anxiety , and COPD, no signs of ischemia Pain mgt consulted- Dr Verdugo [facility] RTC - improved pt's sxs Started xanax, lidoderm patch ,gabapentin 4. Bilateral LE edema sec to CHF exacerbation with diastolic dysfxn resolved Echo showed EF 40-45 % and dilated RV continue fluid restriction Promote ambulation once better cont Aldactone 5. Hypokalemia multifactorial diuretic induced , Albuterol, Hypothyroidism and GI loss off Lasix, on Aldactone Nephro consulted CT of abd showed no adrenal mass 6 .Hyponatremia resolved most likely secondary to solute depletion and infection Continue fluid restriction 7.Hx breast ca, bilateral stable, s/p bilateral mastectomy continue Arimidex 8. Tachycardia/SVT -- multifactorial cont low dose Verapamil on low dose Metoprolol 6.25 mg po bid patient with high levels of anxiety and pain CTA PULm : neg for PE Started lidoderm patch 9. Hypothyroidism/ Hyperthyroidism patient has history of hyperthyroidism , was on Methimazole and noticed to had developed hypothyroidism so Methimazole was d/c and she was started on Po levothyroxine this admission , TSH then went down and Methimazole restarted Methimazole 5 mg po daily restarted as discussed with Dr Vu 10. Anemia, chronic dis monitor anemia work up showed depleted iron stores Venofer IV given s/p 2 units PRBC transfusion 11. Right cephalic vein thrombosis ( superficial vein) no need for therapeutic anticoag 12.Thrombocytopenia, resolved Most likely related to bone marrow suppression and multiple medication use 13.DVT ppx lOvenox Discharge Exam - Head Exam Head Exam: ATRAUMATIC, NORMOCEPHALIC Additional comments: chronically ill female - Eye Exam Eye Exam: EOMI, PERRL Pupil Exam: NORMAL ACCOMODATION - ENT Exam ENT Exam: Mucous Membranes Moist, Normal Exam - Neck Exam Neck exam: Full Rom, Normal Inspection - Respiratory Exam Respiratory Exam: Accessory Muscle Use, Decreased Breath Sounds (bibasilar ), Prolonged Expiratory Phase. absent: Wheezes - Cardiovascular Exam Cardiovascular Exam: Tachycardia, +S1, +S2. absent: JVD - GI/Abdominal Exam GI & Abdominal Exam: Normal Bowel Sounds, Soft. absent: Distended, Guarding, Rebound, Tenderness - Rectal Exam Rectal Exam: Deferred - Extremities Exam Extremities exam: normal inspection Additional comments: RUE lymphedema - Neurological Exam Neurological exam: Alert, CN II-XII Intact, Oriented x3 - Psychiatric Exam Psychiatric exam: Normal Affect - Skin Skin Exam: Dry, Pallor, Warm Discharge Plan - Discharge Medications Prescriptions: Sulfamethoxazole/Trimethoprim [Sulfatrim Pediatric Suspension] 20 ml PO Q12 7 Days Alprazolam [Xanax] 0.5 mg PO Q8 PRN #30 tab PRN Reason: Agitation - Follow Up Plan Condition: FAIR Disposition: TRANSF TO SNF Patient education suggested?: No Additional Instructions: Honey thick diet Continue jevity via peg @ 40 ml Referrals: Bala Benz MD [Staff Provider] - Clinical Quality Measures - CQM - Heart Failure Ejection Fraction: 40 % or Greater Left Ventricular Function to be assessed after discharge: No LUCIA Inhibitor Prescribed: No Contraindication/Reason for not providing: not tolerated due to low BP Beta-Vivian Prescribed: Metoprolol Succinate Angiotensin II Receptor Vivian Prescribed: Yes Aldosterone Antagonist Prescribed: Yes Will be discharged to: Group Home Facility - Date & Time of Discharge Summary Date of Discharge Summary: 07/30/16
[2016-07-30] MEDS ORDERED: Chlorhexidine Gluconate 1 APPL/PKT TP ONE (12:04)
--- NOTE | 2016-07-30 12:32 | CP.CCUPN ---
<Heladio Louie - Last Filed: 07/30/16 12:29> CCU Subjective - Physician Review Subjective (Free Text): Procedure Note Cut 2 sutures holding old trach tube Upon removing tube, track well formed and healing well No visible obstructions noted Trachea well visualized Smooth entry and placement of cuffless size 6 trach tube Suctioned twice w blowby o2 nearby Saturations briefly dropped to mid 80s, returning to mid 90s after each round of suctioning <Wayne Turcios - Last Filed: 07/30/16 15:09> CCU Subjective - Physician Review Subjective (Free Text): Procedure supervised at the bedside as performed br Dr. Thomas Louie. Patient tolerated trach tube change well without complications.
[2016-07-30 12:39] VITALS: PULSE 86; TEMP 97.3
--- NOTE | 2016-07-30 12:58 | RAD ---
PROCEDURE: CHEST RADIOGRAPH, 1 VIEW HISTORY: COPD COMPARISON: Comparison made with prior tract study dated 07/26/2016 and CTA chest 07/09/2016. FINDINGS: LUNGS: In situ tracheostomy tube in good position. Right IJ central line with tip in the SVC unchanged. Significant centrilobular emphysematous changes with upper lobe predominance. Small bilateral effusions and bibasilar atelectasis and/or infiltrates left greater than right PLEURA: As above. CARDIOVASCULAR: Heart remains enlarged. OSSEOUS STRUCTURES: No change chronic deformity of the right shoulder girdle and right humerus VISUALIZED UPPER ABDOMEN: Normal. OTHER FINDINGS: None. IMPRESSION: Tracheostomy tube in good position. Significant centrilobular emphysematous changes with upper lobe predominance again noted. Small bilateral effusions and bibasilar atelectasis and/or infiltrates left greater than right.
--- NOTE | 2016-07-30 13:58 | RAD ---
Modified barium swallow dated 07/30/2016. History: Rule out aspiration. . Both fluoroscopic guidance provided during a modified barium swallow utilizing food stuffs of varying viscosity containing barium. The study was performed in conjunction with the speech pathologist. Findings: The current study reveals penetration with utilizing puree, honey thick liquid and nectar. No vladimir aspiration. Impression: Penetration with utilizing puree, honey thick liquid and nectar. No vladimir aspiration
[2016-07-30 15:30] VITALS: BP 90/64; RESP 24; O2SAT 96
--- NOTE | 2016-07-30 20:28 | PN ---
DATE: 07/30/2016 LOCATION: ICU room 434. SUBJECTIVE: This is a 66-year-old female with recent hyperthyroidism and has improved clinically and metabolically with the initiation of low dose Tapazole medication as given. Her latest chemistry sh owed a BUN of 11, sodium 140, potassium 4.5, chloride 93, CO2 38, glucose 85 and creatinine 0.2. Her latest thyroid studies showed that she is clinically and biochemically euthyroid at this time, so we will continue the Tapazole given as 5 mg once daily as ordered. We will obtain serial chemistries a nd supplement accordingly as needed. We will follow. Polly Vu MD cc: [id number] TT: 07/30/2016 20:27:49 Confirmation # [id number] Dictation # [id number] [email or web address]
== END 2016-07-30 17:31 | DRG 4 ==
LOC: H.ER 21:29 → H.ERHOLD 06-04 00:57 → H.TEL 06-04 10:11 → OBSVTOIN 06-04 11:59 → H.ICU/CCU 06-18 15:49
PROVIDERS: ADMIT Student in an Organized Health Care Education/Training Program; ATTEND Student in an Organized Health Care Education/Training Program
PROC: 0C9 Mouth and Throat, Drainage (ICD-10-PCS; 2016-06-09)
PROC: 02HV33Z Insertion of Infusion Device into Superior Vena Cava, Percutaneous Approach (ICD-10-PCS; 2016-06-10)
PROC: 30243N1 Transfusion of Nonautologous Red Blood Cells into Central Vein, Percutaneous Approach (ICD-10-PCS; 2016-06-22)
PROC: 0C9 Mouth and Throat, Drainage (ICD-10-PCS; 2016-06-24)
PROC: 5A1945Z Respiratory Ventilation, 24-96 Consecutive Hours (ICD-10-PCS; 2016-07-06)
PROC: 0BH17EZ Insertion of Endotracheal Airway into Trachea, Via Natural or Artificial Opening (ICD-10-PCS; 2016-07-06)
PROC: 0C940ZX Drainage of Buccal Mucosa, Open Approach, Diagnostic (ICD-10-PCS; 2016-07-06)
PROC: 0BJ08ZZ Inspection of Tracheobronchial Tree, Via Natural or Artificial Opening Endoscopic (ICD-10-PCS; 2016-07-07)
PROC: 0B958ZX Drainage of Right Middle Lobe Bronchus, Via Natural or Artificial Opening Endoscopic, Diagnostic (ICD-10-PCS; 2016-07-07)
PROC: 0B968ZX Drainage of Right Lower Lobe Bronchus, Via Natural or Artificial Opening Endoscopic, Diagnostic (ICD-10-PCS; 2016-07-07)
PROC: 0B110F4 Bypass Trachea to Cutaneous with Tracheostomy Device, Open Approach (ICD-10-PCS; principal; 2016-07-19 11:30)
PROC: 0DH63UZ Insertion of Feeding Device into Stomach, Percutaneous Approach (ICD-10-PCS; 2016-07-28)
DX: J44.0 Chronic obstructive pulmonary disease with (acute) lower respiratory infection (principal); J96.21 Acute and chronic respiratory failure with hypoxia; I50.33 Acute on chronic diastolic (congestive) heart failure; J15.6 Pneumonia due to other Gram-negative bacteria; Z99.11 Dependence on respirator [ventilator] status; C79.51 Secondary malignant neoplasm of bone; E88.09 Other disorders of plasma-protein metabolism, not elsewhere classified; E87.3 Alkalosis; I11.0 Hypertensive heart disease with heart failure; J96.22 Acute and chronic respiratory failure with hypercapnia; L02.01 Cutaneous abscess of face; E87.1 Hypo-osmolality and hyponatremia; K12.2 Cellulitis and abscess of mouth; I82.611 Acute embolism and thrombosis of superficial veins of right upper extremity; J44.1 Chronic obstructive pulmonary disease with (acute) exacerbation; J20.9 Acute bronchitis, unspecified; E87.6 Hypokalemia; F17.210 Nicotine dependence, cigarettes, uncomplicated; M27.2 Inflammatory conditions of jaws; R60.1 Generalized edema; Z85.3 Personal history of malignant neoplasm of breast; Z92.21 Personal history of antineoplastic chemotherapy; Z92.3 Personal history of irradiation; Z90.13 Acquired absence of bilateral breasts and nipples; Z93.1 Gastrostomy status; D63.8 Anemia in other chronic diseases classified elsewhere; E78.5 Hyperlipidemia, unspecified; E05.00 Thyrotoxicosis with diffuse goiter without thyrotoxic crisis or storm

== ENCOUNTER 2016-09-25 12:36 | Inpatient (IN) | payer MEDICARE, BC ==
[2016-09-25 12:47] VITALS: BMI 21.2
[2016-09-25] MEDS ORDERED: Albuterol-Ipratrop 3 mg / 0.5 (3 ml) UD INH STA (12:47)
[2016-09-25] MEDS ORDERED: Piperacillin/Tazobact 4.5 GM in Sodium Chloride 0.9% 100 ML IVPB STA (12:55)
[2016-09-25] MEDS ORDERED: Cefepime 1 GM in Sodium Chloride 0.9% 100 ML IVPB STA (12:55)
[2016-09-25 13:01] LABS: ABG ALLEN TEST YES; ABG MECHANICAL RATE 14; ARTERIAL BLOOD GAS HCO3 18.5 mmol/L (21-28); ARTERIAL BLOOD GAS MODE PRVC/AC; ARTERIAL BLOOD GAS PH 6.98 (7.35-7.45); ARTERIAL BLOOD GAS PO2 238 mm/Hg (80-100); ATERIAL BLOOD GAS PEEP 5
--- NOTE | 2016-09-25 13:29 | ED PDOC ---
HPI: SOB/CHF/COPD Time Seen by Provider: 09/25/16 12:46 Chief Complaint (Nursing): Respiratory Distress History Per: EMS, Other (patient transported from [place] by EMS w/ medics with reports of respiratory distress and altered mentation. Patient unable to respond and has deteriorated since initial evaluation by medics. Patient was given duoneb and 3 albuterols along wiht terbutaline and MgSO4. ) Current Symptoms Are (Timing): Still Present Past Medical History Reviewed: Historical Data, Nursing Documentation, Vital Signs Vital Signs: Last Vital Signs Temp 99.0 F 09/25/16 14:30 Pulse 160 H 09/25/16 13:00 Resp 22 09/25/16 12:48 BP 133/85 09/25/16 12:47 Pulse Ox 100 09/25/16 14:05 - Medical History PMH: Asthma, COPD, Fractures, Gall Bladder Disease, HTN, Hyperthyroidism (on methimazole), Hypothyroidism, Malignancy (breast CA), Osteoporosis, Pneumonia Denies: HIV, Chronic Kidney Disease - Surgical History Other surgeries: mastectomy - Family History Family History: States: Unknown Family Hx - Living Arrangements Living Ar[facility]ements: [facility] - Home Medications Home Medications: Ambulatory Orders Medication Instructions Recorded Albuterol/Ipratropium [Duoneb 3 3 ml INH RQID neb 07/30/16 mg/0.5 mg (3 ml) UD] Alprazolam [Xanax] 0.5 mg PO Q8 PRN #30 tab 07/30/16 Anastrozole [Arimidex 1 mg Tab] 1 mg PO DAILY tab 07/30/16 Enoxaparin [Lovenox] 40 mg SC DAILY syr 07/30/16 Famotidine [Pepcid] 40 mg PO DAILY ml 07/30/16 Gabapentin [Neurontin] 600 mg PO Q8 tab 07/30/16 Hydrocerin [Hydrocerin Cream] 1 applic TOP BID jar 07/30/16 Lactobacillus Acidophilus [Bacid 1 cap PO BID cap 07/30/16 Acidophilus] Lidocaine 5% [Lidoderm] 1 ea TD DAILY patch 07/30/16 Linezolid [Zyvox] 600 mg PO Q12 #14 tab 07/30/16 Loperamide [Imodium] 2 mg PO QID PRN #0 cap 07/30/16 Metoprolol Tartrate [Lopressor] 6.25 mg PO Q12 tab 07/30/16 Morphine 2 mg IVP Q4 PRN #0 cartridge 07/30/16 Nitroglycerin [Nitro-Bid 2% Oint] 1 in TOP Q6 fp 07/30/16 Spironolactone [Aldactone] 25 mg PO DAILY tab 07/30/16 Sulfamethoxazole/Trimethoprim 20 ml PO Q12 7 Days 07/30/16 [Sulfatrim Pediatric Suspension] Verapamil [Calan SR Tab] 180 mg PO DAILY tab 07/30/16 methIMAzole [Tapazole] 5 mg PO DAILY tab 07/30/16 predniSONE [predniSONE Tab] 15 mg PO DAILY tab 07/30/16 - Allergies Allergies/Adverse Reactions: Allergies Allergy/AdvReac Type Severity Reaction Status Date / Time paper tape Allergy RASH Uncoded 06/03/16 21:31 Review of Systems Review Of Systems: ROS cannot be obtained secondary to pt's inabilty to answer questions. Physical Exam - Reviewed Nursing Documentation Reviewed: Yes Vital Signs Reviewed: Yes - Physical Exam Appears: Positive for: In Acute Distress. Negative for: Well Head Exam: Positive for: ATRAUMATIC, NORMAL INSPECTION, NORMOCEPHALIC Skin: Positive for: Normal Color, Warm, DRY Eye Exam: Positive for: Other (staring blankly without response) ENT: Positive for: Pharynx Is (dry mucous membrane), Other (tracheostomy) Neck: Positive for: Trachea Midline (tracheostomy tube in place but with airleaks around tube (tube is not cuffed). Air leak noted. ) Cardiovascular/Chest: Positive for: Tachycardia Respiratory: Positive for: Decreased Breath Sounds Gastrointestinal/Abdominal: Positive for: Normal Exam, Bowel Sounds, Soft Back: Positive for: Normal Inspection Extremity: Positive for: Normal ROM Neurologic/Psych: Positive for: Alert, Oriented - Laboratory Results Result Diagrams: 09/25/16 13:00 09/25/16 13:00 - ECG ECG: Positive for: Viewed By Me ECG Rhythm: Positive for: Sinus Tachycardia O2 Sat by Pulse Oximetry: 100 - Radiology X-Ray: Read By Radiologist X-Ray Interpretation: Infiltrates - Progress Re-evaluation Time: 14:30 Condition: Re-examined, Improving,but remains with symptoms - Critical Care Total Time (In Min): 60 Medical Decision Making Medical Decision Making: case d/w anesthesia - advised that he does not know how to change tracheostomy from uncuffed to cuffed. Advised to call surgery. resident physician presently located at [facility] and cannot come to [place] for 1-2 hours. Obtained cuffed Trach tube of same size and inserted with slight maneuvering. Slight bleeding noted but ventilator now showing adequate tidal volume. Will repeat ABG in 15-20 minutes. 2.45 case d/w intensist and PMD for admission Disposition - Clinical Impression Clinical Impression: Respiratory failure, Moderate COPD (chronic obstructive pulmonary disease), Pneumonia - Patient ED Disposition Is Patient to be Admitted: Yes Doctor Will See Patient In The: Hospital - Disposition Disposition: Transfer of Care Disposition Time: 14:58 Condition: GUARDED - POA Present On Arrival: None Procedure - Procedure and Findings -: Tracheotomy tube replacement: Tracheotomy tube replaced with equivalent size tube with cuff. Mild resistance noted but tube introduced and functional.
[2016-09-25] MEDS ORDERED: Meropenem 1 GM in Sodium Chloride 0.9% 100 ML IVPB ONE (13:30)
[2016-09-25 13:37] LABS: ALB/GLOB RATIO 1.1 (1.0-2.1); ALKALINE PHOSPHATASE 75 U/L (38-126); ALT/SGPT 25 U/L (9-52); AST/SGOT 32 U/L (14-36); BILIRUBIN,TOTAL 0.4 mg/dl (0.2-1.3); BLOOD UREA NITROGEN 16 mg/dl (7-17); CALCIUM 8.4 mg/dL (8.4-10.2); CARBON DIOXIDE 23 mmol/L (22-30); CHLORIDE 103 mmol/L (98-107); GFR AFRICAN-AMERICAN > 60; GLUCOSE,RANDOM 300 mg/dL (65-105); MAGNESIUM 2.5 MG/DL (1.6-2.3); PHOSPHOROUS 6.3 mg/dl (2.5-4.5); POTASSIUM 4.5 MMOL/L (3.6-5.0); SODIUM 135 mmol/l (132-148); TOTAL PROTEIN 5.9 G/DL (6.3-8.2)
[2016-09-25 13:50] LABS: PARTIAL THROMBOPLASTIN TIME 26.6 SECONDS (23.3-32.5)
--- NOTE | 2016-09-25 13:54 | RAD ---
Right HISTORY: resp distress, ams COMPARISON: Chest x-ray performed 07/30/16 TECHNIQUE: Chest, one view. FINDINGS: Tracheostomy tube. Right-sided central venous catheter terminates at the SVC. External defibrillator pad projects over the right lung apex exclude ring evaluation of the underlying parenchyma. LUNGS: Mild central vascular and pulmonary venous congestion. Patchy right lower lobe infiltrates. Probable small right pleural effusion. No definite pneumothorax. Please note that chest x-ray has limited sensitivity for the detection of pulmonary masses. CARDIOVASCULAR: Cardiomegaly. Dense atherosclerotic calcifications of the aorta. OSSEOUS STRUCTURES: Degenerative changes. Chronic deformity of the proximal right humerus and shoulder girdle. VISUALIZED UPPER ABDOMEN: Unremarkable. OTHER FINDINGS: Bilateral axillary clips. IMPRESSION: Tracheostomy tube. Right-sided central venous catheter terminates at the SVC. External defibrillator pad projects over the right lung apex exclude ring evaluation of the underlying parenchyma. Mild central vascular and pulmonary venous congestion. Patchy right lower lobe opacities likely pneumonia. Probable small right pleural effusion. Cardiomegaly.
[2016-09-25 14:14] LABS: BASO # 0.1 K/uL (0.0-0.2); BASO % 0.5 % (0.0-2.0); EOS # 0.3 K/uL (0.0-0.7); HEMATOCRIT 41.2 % (34.0-47.0); LYMPH # 4.1 K/uL (1.0-4.3); LYMPH % 14.7 % (20.0-40.0); MEAN CELL VOLUME 100.4 fl (81.0-99.0); MEAN CORPUSCULAR HGB CONC 30.9 g/dL (33.0-37.0); MEAN PLATELET VOLUME 7.2 fl (7.2-11.7); MONO # 1.3 K/uL (0.0-0.8); MONO % 4.6 % (0.0-10.0); NEUT # 22.2 K/uL (1.8-7.0); NEUT % 79.2 % (50.0-75.0); NRBC % 0.1 % (0.0-0.0); RED CELL DISTRIBUTION WIDTH 17.2 % (11.5-14.5)
[2016-09-25 14:21] LABS: ABG ALLEN TEST YES; ABG MECHANICAL RATE 20; ARTERIAL BLOOD GAS HCO3 17.2 mmol/L (21-28); ARTERIAL BLOOD GAS MODE PRVC/AC; ARTERIAL BLOOD GAS O2 CAPACITY 15.7 mL/dL (16-24); ARTERIAL BLOOD GAS O2 CONTENT 15.7 ML/dL (15-23); ARTERIAL BLOOD GAS PH 7.11 (7.35-7.45); ARTERIAL BLOOD GAS PO2 329 mm/Hg (80-100); ATERIAL BLOOD GAS PEEP 5; CARBOXYHEMOGLOBIN 1.7 % (0.5-1.5); METHEMOGLOBIN 3.3 % (0.0-3.0)
[2016-09-25] MEDS ORDERED: Sodium Chloride 0.9% 1,000 ML IV STA (15:17)
[2016-09-25 15:36] LABS: RBC URINE 34 /hpf (0-3); URINE BACTERIA RARE (<OCC); URINE BILIRUBIN NEGATIVE (NEGATIVE); URINE BLOOD SMALL (NEGATIVE); URINE COLOR AMBER (YELLOW); URINE GLUCOSE (UA) 50 mg/dL (Normal); URINE KETONE NEGATIVE (NEGATIVE); URINE LEUKOCYTE ESTERASE NEG Leu/uL (Negative); URINE PROTEIN 100 mg/dL (NEGATIVE); WBC CLUMPS MOD /hpf; WBC URINE 18 /hpf (0-5)
--- NOTE | 2016-09-25 16:10 | CP.PCM.HP ---
History of Present Illness - History of Present Illness History of Present Illness: CC: Respiratory Failure at [facility] HPI: 66 y/o female PMH Chronic Respiratory Failure with Trach (placed 07/2016), s/p gastric tube, CHF (systolic+diastolic), COPD, bilateral metastatic breast CA to shoulder s/p chemo/rad 8 years ago (s/p humerus resection) with chronic lymphedema RUE, HTN, hyperthyroidism, tachycardia/SVT, R cephalic vein thrombosis, anxiety, brought in by EMS with severe acute respiratory distress associated with altered mental status[facility], not ameliorated by anything. She was administered 1 duoneb and 3 albuterols along with terbutaline and MgSO4. At present, patient is answering yes or no questions but is having trouble speaking 2/2 trach. Airleak was present at time of arrival to ER, ABG showed hypercarbia and trach was changed from uncuffed to cuffed trach tube by ER, current vent settings AC 400/14/5/60%. Altered mental status was improved in ER once CO narcosis improved. Pt was also found to be febrile Tmx 103 rectal in ER, tachycardic 130-150, WBC 28K, Dimer 4.9 - CTA Pending, BNP 7130, yeast + in urine, CXR showed RLL pneumonia, vascular congestion, and possible sm R pleural effusion. Patient has R CVC, +kimble inserted in ER, gastric tube. Discussed with ER physician. Telegraphic Instrument Supervisor/PMD- Dorcas Luu / Dr. Benz ROS: per HPI all other systems reviewed and negative by nc PMH: Chronic Respiratory Failure with Trach (placed 07/2016), CHF (systolic+ diastolic), COPD, bilateral metastatic breast CA to shoulder s/p chemo/rad 8 years ago (s/p humerus resection) with chronic lymphedema RUE, HTN, hyperthyroidism, hx R buccal abscess, anemia chronic disease, tachycardia SVT, osteoporosis, R cephalic vein thrombosis, peripheral neuropathy, anxiety PSH: bilateral mastectomies R 1998/L 2008, total shoulder replacement (2003) + removal (2013), cervical and lumbar fusions 2007, cholecystectomy, tubal ligation, groin cyst removal FH: extensive history of cancer in her immediate family including ovarion, colon , breast, pancreatic and lung cancer SH: Tobacco: half a pack of cigarettes per day x 40 years . EtOH: denies use. Drugs: denies use Medications: see med rec Allergies: NKDA Surrogate Decision Maker: Information in chart Temp Pulse Resp BP Pulse Ox 98.4 F 131 H 21 91/63 L 100 09/25/16 16:41 09/25/16 17:40 09/25/16 17:40 09/25/16 17:40 09/25/16 17:40 GEN: awake, alert, cooperative, appears weak, thin HEENT: +trach in place, EOMI, PERRL, NCAT Heart: RRR. +S1S2 Chest: +CVC R Lung: on vent, bibasilar rales, mild wheezes Abd: soft, NT ND, no masses or HSM appreciated, + GTUBE Extremities: s/p shoulder resection R side, warm, no edema other than chronic lymphedema R UE Neuro: strength and sensation grossly intact bilateral upper adn lower extremities Skin: warm dry Psych: unable to assess 09/25/16 09/25/16 09/25/16 14:05 14:00 13:15 WBC RBC Hgb Hct MCV MCH MCHC RDW Plt Count MPV Neut % (Auto) Lymph % (Auto) [place] % (Auto) Eos % (Auto) Baso % (Auto) Neut # Lymph # [place] # Eos # Baso # PT INR APTT D-Dimer, Quantitative pCO2 63 H pO2 329 H HCO3 17.2 L ABG pH 7.11 L* ABG Total CO2 21.9 L ABG O2 Saturation 100.0 H ABG O2 Content 15.7 ABG Base Excess -9.8 L ABG Hemoglobin 11.1 L ABG Carboxyhemoglobin 1.7 H POC ABG HHb (Measured) 0.0 ABG Methemoglobin 3.3 H ABG O2 Capacity 15.7 L Tawanda Test Yes ABG Potassium A-a O2 Difference 305.0 Hgb O2 Saturation 95.0 Sodium Chloride Glucose Lactate Vent Mode Prvc/ac Mechanical Rate 20 FiO2 100.0 Tidal Volume 400 PEEP 5 Blood Gas Comments Prvc/ac20/vt400/100/5peep Crit Value Called To Dr. jose angel booker Crit Value Called By Aneta Dong Value Read Back Y Blood Gas Notified Time 1421 Potassium Carbon Dioxide Anion Gap BUN Creatinine Est GFR ( Amer) Est GFR (Non-Af Amer) Random Glucose Lactic Acid Calcium Phosphorus Magnesium Total Bilirubin AST ALT Alkaline Phosphatase Troponin I NT-Pro-B Natriuret Pep Total Protein Albumin Globulin Albumin/Globulin Ratio Arterial Blood Potassium Urine Color Celia Urine Clarity Cloudy Urine pH 5.0 Ur Specific Childs 1.018 Urine Protein 100 Urine Glucose (UA) 50 Urine Ketones Negative Urine Blood Small Urine Nitrate Negative Urine Bilirubin Negative Urine Urobilinogen 2.0 H Ur Leukocyte Esterase Neg Urine RBC (Auto) 34 H Urine WBC Clumps (Auto) Mod H Urine Microscopic WBC 18 H Ur Squamous Epith Cells 10 H Urine Bacteria Rare Hyaline Casts 6-10 H Urine Yeast (Budding) Occ H Influenza Typ A,B (EIA) Negative for flu a/b 09/25/16 09/25/16 09/25/16 13:15 13:00 13:00 WBC 28.0 H D RBC 4.10 Hgb 12.7 Hct 41.2 MCV 100.4 H D MCH 31.0 MCHC 30.9 L RDW 17.2 H Plt Count 434 H D MPV 7.2 Neut % (Auto) 79.2 H Lymph % (Auto) 14.7 L [place] % (Auto) 4.6 Eos % (Auto) 1.0 Baso % (Auto) 0.5 Neut # 22.2 H Lymph # 4.1 [place] # 1.3 H Eos # 0.3 Baso # 0.1 PT 11.3 H INR 1.09 H APTT 26.6 D-Dimer, Quantitative 4.90 H pCO2 pO2 HCO3 ABG pH ABG Total CO2 ABG O2 Saturation ABG O2 Content ABG Base Excess ABG Hemoglobin ABG Carboxyhemoglobin POC ABG HHb (Measured) ABG Methemoglobin ABG O2 Capacity T[place]anda Test ABG Potassium A-a O2 Difference Hgb O2 Saturation Sodium Chloride Glucose Lactate Vent Mode Mechanical Rate FiO2 Tidal Volume PEEP Blood Gas Comments Crit Value Called To Crit Value Called By Crit Value Read Back Blood Gas Notified Time Potassium Carbon Dioxide Anion Gap BUN Creatinine Est GFR ( Amer) Est GFR (Non-Af Amer) Random Glucose Lactic Acid 3.6 H Calcium Phosphorus Magnesium Total Bilirubin AST ALT Alkaline Phosphatase Troponin I NT-Pro-B Natriuret Pep Total Protein Albumin Globulin Albumin/Globulin Ratio Arterial Blood Potassium Urine Color Urine Clarity Urine pH Ur Specific Childs Urine Protein Urine Glucose (UA) Urine Ketones Urine Blood Urine Nitrate Urine Bilirubin Urine Urobilinogen Ur Leukocyte Esterase Urine RBC (Auto) Urine WBC Clumps (Auto) Urine Microscopic WBC Ur Squamous Epith Cells Urine Bacteria Hyaline Casts Urine Yeast (Budding) Influenza Typ A,B (EIA) 09/25/16 09/25/16 13:00 12:49 WBC RBC Hgb Hct MCV MCH MCHC RDW Plt Count MPV Neut % (Auto) Lymph % (Auto) [place] % (Auto) Eos % (Auto) Baso % (Auto) Neut # Lymph # [place] # Eos # Baso # PT INR APTT D-Dimer, Quantitative pCO2 111 H* pO2 238 H HCO3 18.5 L ABG pH 6.98 L* ABG Total CO2 29.5 H ABG O2 Saturation 99.2 H ABG O2 Content ABG Base Excess -8.1 L ABG Hemoglobin ABG Carboxyhemoglobin POC ABG HHb (Measured) ABG Methemoglobin ABG O2 Capacity Tawanda Test Yes ABG Potassium 5.2 A-a O2 Difference 336.0 Hgb O2 Saturation Sodium 135 131.0 L Chloride 103 104.0 Glucose 392 H Lactate 1.4 Vent Mode Prvc/ac Mechanical Rate 14 FiO2 100.0 Tidal Volume 400 PEEP 5 Blood Gas Comments Prvc/ac14/vt400/100/5peep Crit Value Called To Dr. jose angel booker Crit Value Called By Aneta Crit Value Read Back Y Blood Gas Notified Time 1300 Potassium 4.5 Carbon Dioxide 23 Anion Gap 14 BUN 16 Creatinine 0.5 L Est GFR ( Amer) > 60 Est GFR (Non-Af Amer) > 60 Random Glucose 300 H Lactic Acid Calcium 8.4 Phosphorus 6.3 H Magnesium 2.5 H Total Bilirubin 0.4 AST 32 ALT 25 Alkaline Phosphatase 75 Troponin I 0.0180 NT-Pro-B Natriuret Pep 7130 H Total Protein 5.9 L Albumin 3.0 L Globulin 2.8 Albumin/Globulin Ratio 1.1 Arterial Blood Potassium 5.2 Urine Color Urine Clarity Urine pH Ur Specific Childs Urine Protein Urine Glucose (UA) Urine Ketones Urine Blood Urine Nitrate Urine Bilirubin Urine Urobilinogen Ur Leukocyte Esterase Urine RBC (Auto) Urine WBC Clumps (Auto) Urine Microscopic WBC Ur Squamous Epith Cells Urine Bacteria Hyaline Casts Urine Yeast (Budding) Influenza Typ A,B (EIA) 66 y/o female PMH Chronic Respiratory Failure with Trach (placed 07/2016), s/p gastric tube, CHF (systolic+diastolic), COPD, bilateral metastatic breast CA to shoulder s/p chemo/rad 8 years ago (s/p humerus resection) with chronic lymphedema RUE, HTN, hyperthyroidism, tachycardia/SVT, R cephalic vein thrombosis, anxiety, brought in by EMS with severe acute respiratory distress associated with altered mental status/[facility]usion [facility], not ameliorated by anything. She was administered 1 duoneb and 3 albuterols along with terbutaline and MgSO4. At present, patient is answering yes or no questions but is having trouble speaking 2/2 trach. Airleak was present at time of arrival to ER, ABG showed hypercarbia and trach was changed from uncuffed to cuffed trach tube by ER, current vent settings AC 400/14/5/60%. Altered mental status was improved in ER once CO narcosis improved. Pt was also found to be febrile Tmx 103 rectal in ER, tachycardic 130-150, WBC 28K, Dimer 4.9 - CTA Pending, BNP 7130, yeast + in urine, CXR showed RLL pneumonia, vascular congestion, and possible sm R pleural effusion. Patient has R CVC, +kimble inserted in ER, gastric tube. LAST ECHO 06/14/2016 : Mild to moderate decreased LVEF 40-45%, RV moderately dilated, decreased RV function, Diastolic inflow pattern restrictive Acute on Chronic Hypercapneic Respiratory Failure with COPD, with Combined Respiratory and Metabolic Acidosis Pt trach changed to cuffed tube by ER physician Vent settings AC 400/14/5/60%, repeat ABG now with adjusted settings from ER ABG in AM Dr. Benz on consult appreciated and followed Bronchodilators, Albuterol q4 hours, and Solumedrol 40 mg IVP q8 hours Sepsis: RLL Pneumonia Febrile tmax 103 in ER rectal, WBC 28K, acute respiratory distress hx COPD prior bronchial washings from last admission + STENOTROPHOMONAS, sensitive to fortaz restart Fortaz and Azithromycin (09/25/16) Discussed with ID Dr. Obrien, will add Clindamycin (09/25/16) Dr. Benz on consult appreciated and followed Procalcitonin pending Pressor support if necessary with Levophed Small R pleural effusion Will monitor Pt being treated for RLL pna and AECHF Dr. Benz on consult appreciated and followed Acute on Chronic Decompensated Systolic and Diastolic Heart Failure LAST ECHO 06/14/2016 : Mild to moderate decreased LVEF 40-45%, RV moderately dilated, decreased RV function, Diastolic inflow pattern restrictive CXR +pulm vasc congestion, BNP 7130 Fluid restriction 1250 cc Lasix 40 mg IVP q12, with parameters to hold for SBP <110 Daily weights and 2gm Na Heart Healthy diet Continue Lopressor 6.25mg q12 and Spironolactone 25 mg po daily Hx Bilateral Mastectomy with chronic lymphedema RUE and peripheral neuropathy Continue Arimidex 1 mg po Daily Continue Gabapentin 600 mg po q8h Lidocaine patch Concern for PE Pt resp failure, tachycardia Dimer elevated in ER 4.9, CTA pending to evaluate for PE Pt does have hx of R cephalic vein thrombosis Tachycardia/Hx SVT Patient is on Verapamil, currently hold Currently on Cardizem drip in ICU with pressor support per motorcycle service technician team Hypertension Patient currently hypotensive 2/2 Sepsis Yeast in Urine Fluconazole 200 mg IVPB x1 Hyperthyroidism TSH pending Continue Tapazole 5 mg po daily Hx R Cephalic Vein Thrombosis Did not require anticoagulation stable Concern for ACS? First troponin neg Trend cardiac enzymes EKG Sinus Tach w ventricular hypertrophy VTE ppx Lovenox Present on Admission - Present on Admission Any Indicators Present on Admission: No Past Patient History - SURGICAL HISTORY Hx Surgeries: Yes Hx Mastectomy: Yes (right in 1998; left in 2008) Hx Orthopedic Surgery: Yes (2003 rigtht shoulder prosthesis, removal of hardware 2013) Hx Tubal Ligation: Yes Other/Comment: shoulder and humerous replacement with joint space infection and eventual removal of hardware in right shoulder and chronic lymphedema of RUE, groin cyst removal, cervical spinal fusion 2007, lumbar spinal fusion 2007. Meds Allergies/Adverse Reactions: Allergies Allergy/AdvReac Type Severity Reaction Status Date / Time paper tape Allergy RASH Uncoded 06/03/16 21:31 Results - Vital Signs Recent Vital Signs: Last Vital Signs Temp 99.0 F 09/25/16 14:30 Pulse 160 H 09/25/16 13:00 Resp 22 09/25/16 12:48 BP 133/85 09/25/16 12:47 Pulse Ox 100 09/25/16 14:59 - Labs Result Diagrams: 09/25/16 13:00 09/25/16 13:00
[2016-09-25] MEDS ORDERED: Sodium Chloride 3% for Inhalation 4 ML VIAL.NEB IH PRN (16:14)
[2016-09-25] MEDS ORDERED: Verapamil 180 mg ER Tab PO SCH (16:30)
[2016-09-25] MEDS: methylPREDNISolone 40 MG in Sodium Chloride 0.9% 50 ML IVPB SCH (17:00)
[2016-09-25] MEDS: Sodium Chloride 0.9% 1,000 ML IV STA ×2 (17:15→21:13)
[2016-09-25] MEDS ORDERED: Fluconazole IV 200mg/100 ml NS 100 ML IVPB ONE (18:06)
[2016-09-25 18:40] LABS: ABG ALLEN TEST YES; ABG MECHANICAL RATE 14; ARTERIAL BLOOD GAS HCO3 17.5 mmol/L (21-28); ARTERIAL BLOOD GAS MODE A/C; ARTERIAL BLOOD GAS O2 CAPACITY 17.9 mL/dL (16-24); ARTERIAL BLOOD GAS PH 7.17 (7.35-7.45); ARTERIAL BLOOD GAS PO2 145 mm/Hg (80-100); ARTERIAL BLOOD HGB O2 SAT 95.7 % (95.0-98.0); ATERIAL BLOOD GAS PEEP 5; CARBOXYHEMOGLOBIN 2.3 % (0.5-1.5); HHB -0.3 % (0.0-5.0); METHEMOGLOBIN 2.2 % (0.0-3.0)
[2016-09-25] MEDS: Albuterol 0.083% Inhal Sol (2.5 mg/3 mL) UD INH SCH ×2 (19:06→21:55)
--- NOTE | 2016-09-25 19:22 | PN ---
DATE: 09/25/2016 CRITICAL CARE PROGRESS NOTE LOCATION: The patient in ICU, bed 434. TIME SPENT: 45 minutes. The patient is seen and evaluated at the bedside at the request of admitting physician, Dr. Josefa Pimentel, discussed events in ER with ER physician. The patient is a 66-year-old female, reformed smoker with history of chronic obstructive pulmonary disease, bilateral breast CA status post chemoradiation treatment 8 years ago with bone mets to the shoulder, status post humerus resection, hypertension, hyperthyroidism, lives in a group home, brought to ER as she was noted to be in respiratory distress and change in mental status from baseline. In the ER, the patient was noted to be altered and having respiratory distress. The patient had tracheostomy with a cuff less tube, was changed to cuffed tracheostomy connected to ventilator. The patient was given 3 liters of IV fluid and also multiple doses of bronchodilator treatment, antibiotic was started with meropenem, Zosyn and cefepime. Admitted to ICU. PAST MEDICAL HISTORY: In addition to above, includes bilateral mastectomies total shoulder replacement plus removal, cervical and lumbar spinal surgery, cholecystectomy, tubal ligation. FAMILY HISTORY: Significant for cancer in immediate family including ovarian, colon, breast, pancreatic, and lung cancer. SOCIAL HISTORY: Includes a half a pack of cigarettes per day for 40 years. No history of ETOH abuse or drug abuse. MEDICATIONS: At home include acetaminophen 325 mg PEG q. 4, albuterol inhalation 3 mL q. 6 hours, alprazolam 0.5 mg PEG q. 8 hours, amoxicillin 1 tablet PEG q. 12, anastrozole 1 mg PEG daily, bacitracin ointment 1 application topically, Lovenox 40 subQ daily, Pepcid 40 PEG daily, Neurontin 600 mg PEG q. 8 , hydroserpine 12 applications, lidocaine patch daily, magnesium hydroxide 400/ 5 mL 30 mL PEG p.r.n., Tapazole 5 mg PEG daily, metoprolol 6.25 PEG daily, mupirocin 2% 22 gram, nitroglycerin 0.2 mg per hour 1 patch, oxycodone with Tylenol 1 tablet PEG q. 4, prednisone 10 mg PEG daily, verapamil 180 mg PEG daily. PHYSICAL EXAMINATION: GENERAL: A middle-aged female, looks older than her stated age, on ventilator through. tracheostomy. Vent setting AC/PRVC rate of 14, tidal volume 400, PEEP of 5, FiO2 60%, observed respiratory rate 20. Exhaled tidal volume 370 mL, oxygen saturation 100%, peak airway pressure 26, end tidal CO2 16. HEENT: Pupils are reactive. Conjunctivae pale. Sclerae are anicteric. NECK: Tracheostomy site clean. No drainage noted. CHEST: Bilateral breath sounds, scattered rhonchi. Fine crepitations at the bases. HEART: Rhythm regular. S1, S2, rapid. No S3, S4 gallop. No audible murmur. ABDOMEN: PEG site clean, distended. After decompressed through suction connected to the PEG, abdomen is less distended now. Gutierrez catheter in place. EXTREMITIES: Trace edema. NEUROLOGIC: Alert and awake, eyes open, able to follow commands. SKIN: blister with drainage Right upper arm. LABORATORY DATA: WBC 28, hemoglobin 12.7, hematocrit 41.2, platelet count 434, neutrophils 79.2, lymphocytes 14.7, monocytes 4.6. PT 11.2, INR 1.09, PTT 26.6. D-dimer 4.90. ABG: pH 7.1, pCO2 of 63, pO2 of 329 on AC PRVC 20, 400 100 % with PEEP of 5. SMA-7: Sodium 135, potassium 4____ , chloride 103, CO2 23, blood urea nitrogen 16, creatinine 0.5, random glucose 300. Lactic acid 3.6, calcium 8.4, phosphorus 6.3, magnesium 2.5, total bilirubin 0.4, AST 32, ALT 25 , alkaline phosphatase 75. Troponin 10.0180, proBNP 7130, total protein 5.9, albumin 3. Urinalysis: RBC 34, WBC clumps moderate. Urine microscopic WBC 18 , squamous epithelial cells 10. Microbiology: Blood culture report pending. Chest x-ray: Tracheostomy tube positive, right-sided central venous catheter terminates at the superior vena cava, external defibrillator pad projects over the right lung apex exclude mild central vascular and pulmonary venous congestion, patchy right lower lobe opacities, likely pneumonia, small right pleural effusion, cardiomegaly. IMPRESSION: 1. Hypercapneic, hypoxic respiratory failure, 2. Healthcare-associated pneumonia. 3. Status post tracheostomy. 4. Sepsis secondary to pneumonia, urinary tract infection., ? skin 5. History of chronic obstructive pulmonary disease. 6. History of bilateral carcinoma breast status post mastectomy and radiation treatment, status post resection of the humeral head secondary to mets, status post osteomyelitis involving right lower jaw status post multiple courses of antibiotics, status post PEG insertion, now distended secondary to adynamic ileus associated with sepsis. Elevated D-dimer nonspecific, will closely monitor for further deterioration. The patient has been on deep venous thrombosis prophylaxis at home, tachycardia related to sepsis secondary to pneumonia, urinary tract infection. Plan continue ceftazidime 2 gram IV q. 8 hours, Zithromax 500 mg IV daily. ID consult to optimize coverage. Acute respiratory failure, continue vent support. Chronic obstructive pulmonary disease on bronchodilator, short course systemic steroid 40 mg IV q. 8 hours. History of hyperthyroidism on methimazole. Keep head of bed up 40 degrees. DVT and GI prophylaxis.ID, Pulmoary evaluation. Kuldip Jenkins MD cc: [id number] TT: 09/25/2016 19:21:55 Confirmation # [id number] Dictation # [id number]
[2016-09-25] MEDS: Azithromycin 500 MG in Sodium Chloride 0.9% 250 ML IVPB SCH (20:00)
[2016-09-25] MEDS: Tmp-Smz 200-40mg/5 ml Oral Sus(120 ml) PO SCH (21:12)
[2016-09-25] MEDS: Lactobacillus Acidophilus 500 MU Cap PO SCH (21:16)
--- NOTE | 2016-09-25 21:23 | CON ---
DATE: 09/25/2016 The patient was admitted to the ICU from a tertiary care center. She had been in the hospital for qu ite some time on her last admission when she was noted to have an oral abscess. The patient has a pa st medical history also of chronic respiratory failure, CHF, COPD, bilateral metastatic breast CA to the shoulder and she had received chemotherapy 8 years ago at which time she had a humerus resection. She had also a right cephalic vein thrombosis. Was brought to the ER this time for acute respirato ry distress and altered mental status, confusion, again from the tertiary care center. The patient h as a trach, which was put in in June of this year. On physical exam she also was found to have a temperature of 103 per rectum, tachycardic and then in the Emergency Room was found to have yeast in the urine. The patient is minimally responsive, but is awake. The patient was also noted to have some drainage from a wound on the right humerus area even tually. She also had had a right shoulder prosthesis. This hardware was removed in 2013. The patie nt with a past history of spinal fusion and lumbar spinal fusion in 2007. Her microbiology on a past admission from the lungs showed a Stenotrophomonas maltophilia and in the wound cultures from the ab scess she had VRE and Amanda albicans. Her present white count is 28 with a left shift. Platelet count 434. Chemistries: GFR greater than 60, creatinine 0.5. Lactic acid is 3.6. The diagnosis that she has now is a urinary tract infection, Amanda, possibly gram negative; pneumon ia, probably aspiration pneumonia and a small abscess right humerus. She was placed on Zithromax and Fortaz. Have added clindamycin to the treatment. Also, she was put on Diflucan. Tyrone Obrien MD cc: 61 TT: 09/25/2016 21:22:54 Confirmation # [id number] Dictation # [id number] ekta
[2016-09-25 22:36] LABS: ABG ALLEN TEST YES; ABG MECHANICAL RATE 14; ARTERIAL BLOOD GAS HCO3 13.2 mmol/L (21-28); ARTERIAL BLOOD GAS MODE A/C; ARTERIAL BLOOD GAS O2 CAPACITY 17.6 mL/dL (16-24); ARTERIAL BLOOD GAS O2 CONTENT 17.6 ML/dL (15-23); ARTERIAL BLOOD GAS PH 7.13 (7.35-7.45); ARTERIAL BLOOD GAS PO2 159 mm/Hg (80-100); ARTERIAL BLOOD HGB O2 SAT 96.3 % (95.0-98.0); ATERIAL BLOOD GAS PEEP 5; CARBOXYHEMOGLOBIN 2.1 % (0.5-1.5); HHB -0.1 % (0.0-5.0); METHEMOGLOBIN 1.8 % (0.0-3.0)
[2016-09-25] MEDS ORDERED: Sodium Bicarbonate 7.5% (0.9 MEQ/ML) 50ML INJ IV STA (22:43)
--- NOTE | 2016-09-25 22:49 | CP.PCM.PCO ---
Physician Communication Note - Physician Communication Note Physician Communication Note: Bicarbonate decrease from 17.2 to 13.2 and Ph 7.11 to 7.13
[2016-09-26] MEDS: Albuterol 0.083% Inhal Sol (2.5 mg/3 mL) UD INH SCH ×5 (00:06→19:02)
--- NOTE | 2016-09-26 00:18 | CARD ---
APPROVED REPORT EKG Measurement Heart [id number] <Conclusion> Sinus tachycardia Left ventricular hypertrophy with repolarization abnormality Abnormal ECG
[2016-09-26] MEDS: methylPREDNISolone 40 MG in Sodium Chloride 0.9% 50 ML IVPB SCH ×2 (02:00→08:53)
[2016-09-26 05:13] LABS: ABG ALLEN TEST YES; ABG MECHANICAL RATE 14; ARTERIAL BLOOD GAS HCO3 20.7 mmol/L (21-28); ARTERIAL BLOOD GAS MODE A/C; ARTERIAL BLOOD GAS O2 CAPACITY 16.8 mL/dL (16-24); ARTERIAL BLOOD GAS O2 CONTENT 16.8 ML/dL (15-23); ARTERIAL BLOOD GAS PH 7.27 (7.35-7.45); ARTERIAL BLOOD GAS PO2 187 mm/Hg (80-100); ARTERIAL BLOOD HGB O2 SAT 96.2 % (95.0-98.0); ATERIAL BLOOD GAS PEEP 5; CARBOXYHEMOGLOBIN 2.1 % (0.5-1.5); HHB -0.2 % (0.0-5.0)
[2016-09-26 07:05] LABS: BASO % 0.1 % (0.0-2.0); HEMATOCRIT 37.7 % (34.0-47.0); LYMPH # 0.5 K/uL (1.0-4.3); LYMPH % 1.3 % (20.0-40.0); MEAN CELL VOLUME 97.5 fl (81.0-99.0); MEAN CORPUSCULAR HEMOGLOBIN 30.3 pg (27.0-31.0); MEAN CORPUSCULAR HGB CONC 31.1 g/dL (33.0-37.0); MEAN PLATELET VOLUME 7.3 fl (7.2-11.7); MONO # 0.8 K/uL (0.0-0.8); MONO % 2.2 % (0.0-10.0); NEUT # 35.7 K/uL (1.8-7.0); NEUT % 96.4 % (50.0-75.0); NRBC % 0.1 % (0.0-0.0); PLATELET COUNT 352 K/uL (130-400); RED CELL DISTRIBUTION WIDTH 17.2 % (11.5-14.5)
[2016-09-26 07:11] LABS: BLOOD UREA NITROGEN 26 mg/dl (7-17); CARBON DIOXIDE 24 mmol/L (22-30); CHLORIDE 109 mmol/L (98-107); GFR AFRICAN-AMERICAN > 60; GLUCOSE,RANDOM 219 mg/dL (65-105); PHOSPHOROUS 4.1 mg/dl (2.5-4.5); POTASSIUM 4.2 MMOL/L (3.6-5.0); SODIUM 140 mmol/l (132-148)
[2016-09-26 07:12] LABS: WHITE BLOOD COUNT 37.1 K/uL (4.8-10.8)
[2016-09-26 07:41] LABS: THYROID STIMULATING HORMONE 0.67 mIU/ML (0.46-4.68)
[2016-09-26] MEDS: Tmp-Smz 200-40mg/5 ml Oral Sus(120 ml) PO SCH ×2 (08:54→20:24)
[2016-09-26] MEDS: Azithromycin 500 MG in Sodium Chloride 0.9% 250 ML IVPB SCH (09:26)
[2016-09-26] MEDS: Enoxaparin 40 mg Syringe SC SCH (09:30)
[2016-09-26] MEDS: Famotidine 40 MG/5 ML PO SCH (09:30)
[2016-09-26] MEDS: Lidocaine 5% Patch TD SCH (09:31)
[2016-09-26] MEDS: Hydrocerin CREAM TOP SCH ×2 (09:37→17:11)
[2016-09-26] MEDS: methIMAzole 5 MG TAB PO SCH (09:40)
[2016-09-26] MEDS: Lactobacillus Acidophilus 500 MU Cap PO SCH ×2 (09:42→17:07)
--- NOTE | 2016-09-26 10:13 | RAD ---
HISTORY: trach/vent COMPARISON: Chest x-ray performed 09/25/16 TECHNIQUE: Chest, one view. FINDINGS: Tracheostomy tube. Right-sided central venous catheter extends expected location of the SVC. LUNGS: Right lower lobe opacity compatible with pneumonia and small pleural effusion. Left basilar atelectasis and probable tiny pleural effusion. No definite pneumothorax. Please note that chest x-ray has limited sensitivity for the detection of pulmonary masses. CARDIOVASCULAR: Borderline cardiomegaly. Dense atherosclerotic calcifications of the aorta. OSSEOUS STRUCTURES: Cervical fusion hardware. Chronic deformity of the proximal right humerus and shoulder girdle. Postsurgical changes of the left humeral head. Degenerative changes of the spine. VISUALIZED UPPER ABDOMEN: Unremarkable. OTHER FINDINGS: Bilateral axillary clips. IMPRESSION: Tracheostomy tube. Right-sided central venous catheter extends expected location of the SVC. Right lower lobe opacity compatible with pneumonia and small pleural effusion. Left basilar atelectasis and probable tiny pleural effusion.
--- NOTE | 2016-09-26 10:40 | CP.PCM.PN ---
Subjective - Date & Time of Evaluation Date of Evaluation: 09/26/16 Time of Evaluation: 10:40 - Subjective Subjective: patient seen examined bedside today. clinically improved drastically this morning awake, alert, conversational with good sense of humor vitals 98.3 HR 106 91/67 100% vented at 400/14/5/50%, ABG in AM CVC R SC PEG, with Jevity @ 40 cc + Levophed at 5mcg/min + Cardizem at 3mg/hr --PO conversion ordered to titrate off gtt + Blood Cx + Staph Aureus, discussed w ID. ABX changed to d/c Azithromycin and add Linezolid 600mg q12 currently in no acute distress CTA NEG for PE today, small to moderate bilateral pleural effusions Objective - Vital Signs/Intake and Output Vital Signs (last 24 hours): Temp Pulse Resp BP Pulse Ox 98.3 F 92 H 18 104/62 100 09/26/16 08:00 09/26/16 09:00 09/26/16 09:00 09/26/16 09:00 09/26/16 09:00 Intake and Output: 09/26/16 09/26/16 06:59 18:59 Intake Total 1304.0 554 Output Total 450 Balance 854.0 554 - Medications Medications: Current Medications Albuterol Sulfate (Albuterol 0.083% Inhal Aby (2.5 Mg/3 Ml) Ud) 2.5 mg INH RQ4 ANDREAS Last Admin: 09/26/16 07:41 Dose: 2.5 mg Alprazolam (Xanax) 0.5 mg PO Q8 PRN PRN Reason: Agitation Last Admin: 09/25/16 21:47 Dose: 0.5 mg Anastrozole (Arimidex 1 Mg Tab) 1 mg PO DAILY ANDREAS Last Admin: 09/26/16 09:41 Dose: 1 mg Diltiazem HCl (Cardizem) 30 mg PO Q8 ANDREAS Enoxaparin Sodium (Lovenox) 40 mg SC DAILY ANDREAS PRN Reason: Protocol Last Admin: 09/26/16 09:30 Dose: 40 mg Famotidine (Pepcid) 40 mg PO DAILY ANDREAS Last Admin: 09/26/16 09:30 Dose: 40 mg Furosemide (Lasix) 40 mg IVP Q12 ANDREAS Last Admin: 09/26/16 08:49 Dose: Not Given Gabapentin (Neurontin) 600 mg PO Q8 [facility] Last Admin: 09/26/16 09:30 Dose: 600 mg Azithromycin 500 mg/ Sodium (Chloride) 250 mls @ 250 mls/hr IVPB DAILY [facility] Last Admin: 09/26/16 09:26 Dose: 250 mls/hr Methylprednisolone 40 mg/ (Sodium Chloride) 50 mls @ 100 mls/hr IVPB Q8 [facility] Last Admin: 09/26/16 08:53 Dose: 100 mls/hr Clindamycin Phosphate 600 mg/ (Sodium Chloride) 54 mls @ 54 mls/hr IVPB Q8 [facility] Last Admin: 09/26/16 01:30 Dose: 54 mls/hr Norepinephrine Bitartrate 4 mg (/ Dextrose) 254 mls @ 9.52 mls/hr IV .Q24H ANDREAS ; 2.5 MCG/MIN PRN Reason: Protocol Last Admin: 09/26/16 10:07 Dose: 12.5 mcg/min, 47.62 mls/hr Diltiazem HCl 125 mg/ Sodium (Chloride) 125 mls @ 3 mls/hr IV .Q24H ONE; 3 MG/ HR PRN Reason: Protocol Stop: 09/26/16 18:09 Last Admin: 09/25/16 19:30 Dose: 3 mg/hr, 3 mls/hr Ceftazidime 2 gm/ Sodium (Chloride) 100 mls @ 200 mls/hr IVPB Q8 [facility] Lactobacillus Acidophilus (Bacid Acidophilus) 1 cap PO BID [facility] Last Admin: 09/26/16 09:42 Dose: 1 cap Lidocaine (Lidoderm) 1 ea TD DAILY [facility] Last Admin: 09/26/16 09:31 Dose: 1 ea Methimazole (Tapazole) 5 mg PO DAILY [facility] Last Admin: 09/26/16 09:40 Dose: 5 mg Metoprolol Tartrate (Lopressor) 6.25 mg PO Q12 [facility] Last Admin: 09/26/16 08:50 Dose: Not Given Multi-Ingredient Cream (Hydrocerin Cream) 1 applic TOP BID [facility] Last Admin: 09/26/16 09:37 Dose: 1 applic Spironolactone (Aldactone) 25 mg PO DAILY [facility] Last Admin: 09/26/16 09:40 Dose: 25 mg Trimethoprim/Sulfamethoxazole (Sulfatrim Pediatric Susp) 20 ml PO Q12 ANDREAS Last Admin: 09/26/16 08:54 Dose: 20 ml - Labs Labs: 09/26/16 05:45 09/26/16 05:45 PT 11.3 SECONDS (9.6-11.2) H 09/25/16 13:00 INR 1.09 (0.92-1.08) H 09/25/16 13:00 APTT 26.6 SECONDS (23.3-32.5) 09/25/16 13:00 - Constitutional Appears: Non-toxic, No Acute Distress - Head Exam Head Exam: ATRAUMATIC, NORMOCEPHALIC Additional comments: trach+ - Eye Exam Eye Exam: EOMI, Normal appearance, PERRL Pupil Exam: NORMAL ACCOMODATION - ENT Exam ENT Exam: Mucous Membranes Moist, Normal Oropharynx - Neck Exam Additional comments: +Trach in place - Respiratory Exam Respiratory Exam: Wheezes, NORMAL BREATHING PATTERN. absent: Rales - Cardiovascular Exam Cardiovascular Exam: RRR, +S1, +S2 - GI/Abdominal Exam GI & Abdominal Exam: Soft. absent: Tenderness, Mass, Organomegaly Additional comments: +PEG - Extremities Exam Extremities Exam: Normal Capillary Refill. absent: Calf Tenderness, Pedal Edema - Back Exam Back Exam: absent: CVA tenderness (L), CVA tenderness (R) - Neurological Exam Neurological Exam: Alert, Awake - Psychiatric Exam Psychiatric exam: Normal Affect, Normal Mood - Skin Skin Exam: Dry, Warm Assessment and Plan - Assessment and Plan (Free Text) Plan: 66 y/o female PMH Chronic Respiratory Failure with Trach (placed 07/2016), s/p gastric tube, CHF (systolic+diastolic), COPD, bilateral metastatic breast CA to shoulder s/p chemo/rad 8 years ago (s/p humerus resection) with chronic lymphedema RUE, HTN, hyperthyroidism, tachycardia/SVT, R cephalic vein thrombosis, anxiety, brought in by EMS with severe acute respiratory distress associated with altered mental status/confusion from shelter, not ameliorated by anything. She was administered 1 duoneb and 3 albuterols along with terbutaline and MgSO4. At present, patient is answering yes or no questions but is having trouble speaking 2/2 trach. Airleak was present at time of arrival to ER, ABG showed hypercarbia and trach was changed from uncuffed to cuffed trach tube by ER, current vent settings AC 400/14/5/60%. Altered mental status was improved in ER once CO narcosis improved. Pt was also found to be febrile Tmax 103 F rectal in ER, tachycardic 130-150, WBC 28K, Dimer 4.9 - CTA NEG, BNP 7130, yeast + in urine, CXR showed RLL pneumonia, vascular congestion, and possible sm R pleural effusion. 09/26/16: Clinically improved drastically today. Vitals 98.3 HR 106 91/67 100%. Vent: AC 400/14/5/50%, ABG in AM. + Levophed at 5mcg/min. + Cardizem at 3mg/hr-- PO conversion ordered to titrate off gtt. Blood Cx + Staph Aureus, discussed w ID. ABX changed to d/c Azithromycin and add Linezolid 600mg q12. To go for CTA today. Discussed with Dr. Benz, Dr. Obrien +PEG with regular diet once cuff able to be deflated, cont Jevity 40 cc/hr per last discharge. Note this caused diarrhea and patient was tolerating regular diet at [facility]. Patient has R SC CVC, +kimble inserted in ER, gastric tube with Jevity @40cc/hr LAST ECHO 06/14/2016: Mild to moderate decreased LVEF 40-45%, RV moderately dilated, decreased RV function, Diastolic inflow pattern restrictive Acute on Chronic Hypercapneic Respiratory Failure with COPD, with Combined Respiratory and Metabolic Acidosis Acidosis resolved (09/26/16) 09/26/16 - Today patient stated that for past 2 months she has been doing very well, eating reg diet and drinking well, and ambulating at the shelter without difficulty. Pt trach changed to cuffed tube by ER physician Vent settings AC 400/14/5/50%, maintain current settings in light of pressors ABG in AM Dr. Benz on consult appreciated and followed, discussed at length Albuterol q4 hours, and Solumedrol 40 mg IVP q8 hours -- decreased to Solumedrol 30mg q8 (09/26/16) Given 2 amps bicarb (09/25/16) Sepsis: RLL Pneumonia Current ABX: Fortaz, Linezolid, Clindamycin. Now afebrile, increased WBC 37.1 today from 28K possibly 2/2 steroids. Procalcitonin NEGATIVE. Lactic Acid 3.6 to 1.3 Blood cultures [+] for Staph Aureus, Azithromycin D/C, added Linezolid 600 mg Q12 (09/26/16) Febrile Tmax 103 F in ER rectal, WBC 28K, acute respiratory distress hx COPD Bronchial washings from last admission + STENOTROPHOMONAS, sensitive to fortaz Fortaz and Azithromycin (09/25/16) -- Azithromycin D/C (09/26/16) Discussed with ID Dr. Obrien, will add Clindamycin (09/25/16) Add Linezolid 600 mg Q12 (09/26/16) Dr. Benz on consult appreciated and followed + Levophed at 5 mcg currently + Cardizem gtt 3 mg/hr conversion to Cardizem 60 mg PO q8 hours Wound, Sputum, Urine Cultures still pending as of 09/26/16 Small R pleural effusion 09/26/16 - CTA showed sm to mod bilateral pleural effusions Will continue to monitor Pt being treated for RLL pna and AECHF Dr. Benz on consult appreciated and followed Acute on Chronic Decompensated Systolic and Diastolic Heart Failure Exacerbation resolved at present. CXR improved today, no evidence of vascular congestion. No clinical signs of failure. LAST ECHO 06/14/2016: Mild to moderate decreased LVEF 40-45%, RV moderately dilated, decreased RV function, Diastolic inflow pattern restrictive 09/26/16 CXR pulm vasc congestion resolved. 09/25/16 CXR +pulm vasc congestion, BNP 7130 Lasix 40 mg IVP q12 (parameters to hold for SBP <110) HELD Daily weights and Regular diet. Continue Lopressor 6.25mg q12 and Spironolactone 25 mg po daily Monitor for fluid overload, Lasix as necessary Concern for PE CTA neg for PE Pt resp failure, tachycardia Dimer elevated in ER 4.9, CTA NEG for PE Pt does have hx of R cephalic vein thrombosis Concern for ACS, unlikely First neg, second 0.1390, third 0.0760 Elevated enzymes likely 2/2 cardiac strain due to prolonged sinus tachycardia EKG Sinus Tach w ventricular hypertrophy EKG repeat today with elevated troponin, no changes from prior EKGS, noted low amplitude. Cardiology Consult with Dr. Manuel Luu Sinus Tachycardia/Hx SVT Patient is on Verapamil 180 MG CR, currently hold Currently on Cardizem drip in ICU with Levophed per furniture arranger team Converting to PO today Restart Lopressor today as patient responded very well to this last admission for sinus tach Hx Bilateral Mastectomy with chronic lymphedema RUE and peripheral neuropathy Continue Arimidex 1 mg po Daily Continue Gabapentin 600 mg po q8h Lidocaine patch Hypertension Patient currently hypotensive, on Levophed 5 mcg Yeast in Urine Fluconazole 200 mg IVPB x1 Hyperthyroidism TSH normal low @ 0.67 Continue Tapazole 5 mg po daily Hx R Cephalic Vein Thrombosis Did not require anticoagulation stable DIET Pt +PEG, was on Jevity at 40cc/hr on discharge, however patient has been on regular diet at [facility]. Cont Jevity feed @40cc with Imodium. Resume reg diet once cuff able to be deflated. Physical and Occupational Therapy evaluation and treatments pending VTE ppx Lovenox
[2016-09-26 12:06] LABS: NEUTROPHIL 93 % (42-75); TOTAL CELLS COUNTED 100
[2016-09-26 12:07] LABS: LARGE PLATELETS PRESENT; PLATELET CLUMPS PRESENT
[2016-09-26] MEDS ORDERED: Linezolid 600 mg in D5W 300 ml 600 MG/300 ML BAG IVPB SCH (12:15)
[2016-09-26] MEDS ORDERED: Sodium Chloride 0.9% 1,000 ML IV SCH (12:30)
--- NOTE | 2016-09-26 13:28 | CP.PCM.PN ---
Subjective - Date & Time of Evaluation Date of Evaluation: 09/26/16 Time of Evaluation: 13:15 - Subjective Subjective: I D NOTE BLOOD CULTURE IS POSITIVE FOR GRAM POS COCCI IN [facility] ([facility]) DISCUSSED C HOSPITALIST(DR. RODRIGUEZ) AWAIT FURTHER CULTURES FOR PRESENT ADD ZYVOX ,CONTINUE CLINDAMYCIN,AND FORTAZ Objective - Vital Signs/Intake and Output Vital Signs (last 24 hours): Temp Pulse Resp BP Pulse Ox 98.3 F 106 H 23 91/67 L 100 09/26/16 08:00 09/26/16 11:40 09/26/16 11:40 09/26/16 11:40 09/26/16 11:40 Intake and Output: 09/26/16 09/26/16 06:59 18:59 Intake Total 1304.0 1311 Output Total 450 Balance 854.0 1311 - Medications Medications: Current Medications Albuterol Sulfate (Albuterol 0.083% Inhal Aby (2.5 Mg/3 Ml) Ud) 2.5 mg INH RQ4 ANDREAS Last Admin: 09/26/16 11:44 Dose: 2.5 mg Alprazolam (Xanax) 0.5 mg PO Q8 PRN PRN Reason: Agitation Last Admin: 09/26/16 11:04 Dose: 0.5 mg Anastrozole (Arimidex 1 Mg Tab) 1 mg PO DAILY ANDREAS Last Admin: 09/26/16 09:41 Dose: 1 mg Diltiazem HCl (Cardizem) 30 mg PO Q8 ANDRE[facility] Last Admin: 09/26/16 11:04 Dose: 30 mg Enoxaparin Sodium (Lovenox) 40 mg SC DAILY ANDREAS PRN Reason: Protocol Last Admin: 09/26/16 09:30 Dose: 40 mg Famotidine (Pepcid) 40 mg PO DAILY ANDREAS Last Admin: 09/26/16 09:30 Dose: 40 mg Furosemide (Lasix) 40 mg IVP Q12 ANDREAS Last Admin: 09/26/16 08:49 Dose: Not Given Gabapentin (Neurontin) 600 mg PO Q8 [facility]RE[facility] Last Admin: 09/26/16 09:30 Dose: 600 mg Norepinephrine Bitartrate 4 mg (/ Dextrose) 254 mls @ 9.52 mls/hr IV .Q24H ANDREAS ; 2.5 MCG/MIN PRN Reason: Protocol Last Titration: 09/26/16 11:18 Dose: 15 mcg/min, 57.15 mls/hr Diltiazem HCl 125 mg/ Sodium (Chloride) 125 mls @ 3 mls/hr IV .Q24H ONE; 3 MG/ HR PRN Reason: Protocol Stop: 09/26/16 18:09 Last Admin: 09/25/16 19:30 Dose: 3 mg/hr, 3 mls/hr Ceftazidime 2 gm/ Sodium (Chloride) 100 mls @ 200 mls/hr IVPB Q8 [facility] Last Admin: 09/26/16 11:07 Dose: 200 mls/hr Sodium Chloride (Sodium Chloride 0.9%) 1,000 mls @ 75 mls/hr IV .[id number] [facility] Stop: 09/27/16 01:49 Clindamycin Phosphate 600 mg/ (Sodium Chloride) 54 mls @ 54 mls/hr IVPB Q8 [facility] Linezolid (Zyvox 600mg/300ml D5w) 600 mg in 300 mls @ 300 mls/hr IVPB Q12 [facility] Methylprednisolone 30 mg/ (Sodium Chloride) 50 mls @ 100 mls/hr IVPB Q8 [facility] Lactobacillus Acidophilus (Bacid Acidophilus) 1 cap PO BID [facility] Last Admin: 09/26/16 09:42 Dose: 1 cap Lidocaine (Lidoderm) 1 ea TD DAILY [facility] Last Admin: 09/26/16 09:31 Dose: 1 ea Methimazole (Tapazole) 5 mg PO DAILY [facility] Last Admin: 09/26/16 09:40 Dose: 5 mg Metoprolol Tartrate (Lopressor) 6.25 mg PO Q12 [facility] Last Admin: 09/26/16 08:50 Dose: Not Given Multi-Ingredient Cream (Hydrocerin Cream) 1 applic TOP BID [facility] Last Admin: 09/26/16 09:37 Dose: 1 applic Sodium Chloride ([place] Nasal [place]) 2 sprays VON Q4 PRN PRN Reason: Nasal congestion Spironolactone (Aldactone) 25 mg PO DAILY [facility] Last Admin: 09/26/16 09:40 Dose: 25 mg Trimethoprim/Sulfamethoxazole (Sulfatrim Pediatric Susp) 20 ml PO Q12 [facility] Last Admin: 09/26/16 08:54 Dose: 20 ml - Labs Labs: 09/26/16 05:45 09/26/16 05:45 PT 11.3 SECONDS (9.6-11.2) H 09/25/16 13:00 INR 1.09 (0.92-1.08) H 09/25/16 13:00 APTT 26.6 SECONDS (23.3-32.5) 09/25/16 13:00
--- NOTE | 2016-09-26 13:47 | PN ---
DATE: 09/26/2016 The patient is in ICU, bed 434. TIME SPENT: 45 minutes. Events since admission reviewed. Overnight, on Levophed drip for hypotension, on Cardizem drip for s inus tachycardia, on ventilator via the tracheostomy, noted to be febrile. This morning, on AC/PRVC rate 14, set at tidal volume 400, FiO2 50%, saturating 100%, observed respiratory rate 14, observed t idal volume 420, minute ventilation 8.3 liters, end tidal CO2 13. Remains alert, awake, follows comm ands appropriate. No distress noted. PHYSICAL EXAMINATION: VITAL SIGNS: Temperature 98.3 and remains afebrile. Heart rate 133-131, blood pressure 96/60, 91/67 , respiratory rate 23. Intake 1304, output 450, positive balance 854, weight 120 pounds. HEAD, EYES, EARS, NOSE, THROAT: Pupils reactive. Conjunctivae pale. Sclerae white. NECK: Tracheostomy site clean. No drainage noted. CHEST: Bilateral breath sounds. Fine crepitations at the bases. HEART: Rhythm regular. S1, S2, rapid. No S3 or S4 gallop. No audible murmur. ABDOMEN: PEG site clean, softly distended, decompressed via suction, Gutierrez catheter in place. EXTREMITIES: Trace edema upper and lower extremities. SKIN: Blister with drainage right upper arm, dressing done this morning. NEUROLOGIC: Alert, awake, eyes open, able to follow commands, appears anxious. CURRENT MEDICATIONS: Albuterol/Atrovent inhalation 2.5 mg q. 4 hours, Xanax 0.5 mg q. 8 p.r.n., Arim idex 1 mg daily, ceftazidime 2 grams q. 8 hours, clindamycin 600 mg IV q. 8, Zyvox 600 mg IV q. 12, t rimethoprim/sulfamethoxazole 20 mL p.o. q. 12, Aldactone 25 mg p.o. daily, sodium chloride at 75 mL p er hour, sodium chloride nasal spray 2 sprays q. 4 p.r.n., Levophed drip maintaining systolic pressur e 100 or above, multi-ingredient cream 1 application topically twice daily, metoprolol 6.25 mg p.o. q . 12, on hold secondary to low blood pressure, Solu-Medrol 40 mg IV q. 8, methimazole 5 mg PEG daily, Lidoderm patch topically daily, lactobacillus 1 capsule twice daily, Neurontin 600 mg p.o. q. 8 hour s, Pepcid 40 mg p.o. daily, Lovenox 40 subQ daily, Cardizem 30 mg p.o. q. 8 p.r.n., to hold for heart rate less than 60. IMPRESSION: Hypercapnic hypoxic respiratory failure, on mechanical ventilation, reduce FiO2 as yessenia ated to maintain pO2 above 70. Healthcare-associated pneumonia, history of maltophilia from the woun d culture during the previous admission, currently on clindamycin, Bactrim, Fortaz and Diflucan. Sta tus post tracheostomy, stable, continue pulmonary toilet, tracheostomy care. Sepsis with septic ence phalopathy, secondary to right lower lobe pneumonia and suspected urinary tract infection. Skin blis ter with drainage, may also contributing to the source of infection. History of chronic obstructive pulmonary disease, on bronchodilator, reduce systemic steroid to 40 mg IV q. 12 and wean off as yessenia ated. Deep venous thrombosis and gastrointestinal prophylaxis. Head of bed 40 degrees up. History of bilateral breast carcinoma, status post mastectomy and radiation treatment. Status post resection of the right humerus head, secondary to metastasis from the breast cancer and subsequent removal of the hardware, noted to have blister at the site, does not have any purulent discharge. The patient i s high risk for pulmonary embolism given sedentary lifestyle and underlying cancer of breast. Howeve r, the tachycardia seems to be related to sepsis. The patient has been on anticoagulation at the [facility]. We will closely monitor for evidence of pulmonary embolism, if the heart rate does not re solve, if the tachycardia does not resolve to treatment of sepsis and on current Cardizem. Kuldip Jenkins MD cc: 170 TT: 09/26/2016 13:46:36 Confirmation # [id number] Dictation # [id number]
[2016-09-26] MEDS ORDERED: Iodixanol 320 MG/ML 100 ML BOTTLE IV ONE (14:37)
[2016-09-26] MEDS: Nasal Spray(Ocean spray) NAS PRN (16:17)
[2016-09-26 16:55] LABS: RBC URINE 1 /hpf (0-3); URINE BACTERIA RARE (<OCC); URINE BILIRUBIN NEGATIVE (NEGATIVE); URINE BLOOD NEGATIVE (NEGATIVE); URINE COLOR YELLOW (YELLOW); URINE GLUCOSE (UA) 150 mg/dL (Normal); URINE KETONE NEGATIVE (NEGATIVE); URINE LEUKOCYTE ESTERASE NEG Leu/uL (Negative); URINE PROTEIN 30 mg/dL (NEGATIVE); URINE UROBILINOGEN 0.2-1.0 mg/dL (0.2-1.0); WBC URINE 11 /hpf (0-5)
[2016-09-26] MEDS ORDERED: Clindamycin 600 MG in Sodium Chloride 0.9% 100 ML IVPB SCH (17:00)
[2016-09-26] MEDS: methylPREDNISolone 30 MG in Sodium Chloride 0.9% 50 ML IVPB SCH (17:03)
--- NOTE | 2016-09-26 17:35 | CT ---
CT chest with IV contrast Indication: Evaluate for PE Technique: Contiguous axial images were obtained through the chest with intravenous contrast enhancement. Sagittal and coronal reconstructions were generated and reviewed. This CT exam was performed using 1 or more of the falling dose reduction techniques: Automated exposure control, adjustment of the MAA and/or kV according to patient size, and/or use of iterative reconstruction technique. IV Contrast: 100 cc Visipaque 320 Radiation dose (DLP): 390.68 MGy-cm. Comparison: Chest x-ray performed 09/26/16 Findings: Right IJ approach central venous catheter terminates in the SVC. Tracheostomy tube. The right thyroid lobe is not identified. Enlarged heterogeneous left lower pole thyroid gland. The mediastinal and hilar vascular structures appear unremarkable. The heart appears within normal limits of size. Atherosclerotic calcifications the aorta. No large central or segmental pulmonary embolus evident. Small to moderate bilateral pleural effusions and associated consolidations. Extensive emphysematous changes. No suspicious pulmonary nodules measuring greater than 5 mm. 2.9 cm right hepatic lobe hypodensity, indeterminate. Hypoattenuation of the liver compatible with hepatic steatosis. Cholecystectomy clips. Partially imaged deformity of the right shoulder/proximal humerus. Postsurgical changes of the left humeral head. Extensive multilevel degenerative changes of the spine. Partially imaged anterior cervical fusion hardware. Bilateral axillary clips. Left breast mastectomy. Impression: Right IJ approach central venous catheter terminates in the SVC. Tracheostomy tube. The right thyroid lobe is not identified. Enlarged heterogeneous left lower pole thyroid gland. No large central or segmental pulmonary embolus evident. Small to moderate bilateral pleural effusions and associated consolidations. Extensive emphysematous changes. 2.9 cm right hepatic lobe hypodensity, indeterminate. Hepatic steatosis. Cholecystectomy clips. Additional findings as above.
[2016-09-26] MEDS: Linezolid 600 mg in D5W 300 ml 600 MG/300 ML BAG IVPB SCH (20:16)
[2016-09-27] MEDS: methylPREDNISolone 30 MG in Sodium Chloride 0.9% 50 ML IVPB SCH ×3 (00:07→20:04)
[2016-09-27] MEDS: Albuterol 0.083% Inhal Sol (2.5 mg/3 mL) UD INH SCH ×5 (01:08→20:30)
[2016-09-27 06:10] LABS: ABG ALLEN TEST YES; ABG MECHANICAL RATE 14; ARTERIAL BLOOD GAS HCO3 23.8 mmol/L (21-28); ARTERIAL BLOOD GAS MODE A/C; ARTERIAL BLOOD GAS O2 CAPACITY 14.4 mL/dL (16-24); ARTERIAL BLOOD GAS O2 CONTENT 14.4 ML/dL (15-23); ARTERIAL BLOOD GAS PH 7.42 (7.35-7.45); ARTERIAL BLOOD GAS PO2 103 mm/Hg (80-100); ARTERIAL BLOOD HGB O2 SAT 96.2 % (95.0-98.0); ATERIAL BLOOD GAS PEEP 5; CARBOXYHEMOGLOBIN 1.9 % (0.5-1.5); HHB 0.2 % (0.0-5.0); METHEMOGLOBIN 1.7 % (0.0-3.0)
[2016-09-27 07:41] LABS: BASO # 0.1 K/uL (0.0-0.2); BASO % 0.2 % (0.0-2.0); HEMATOCRIT 32.3 % (34.0-47.0); LYMPH # 0.3 K/uL (1.0-4.3); LYMPH % 1.3 % (20.0-40.0); MEAN CELL VOLUME 95.5 fl (81.0-99.0); MEAN CORPUSCULAR HEMOGLOBIN 30.2 pg (27.0-31.0); MEAN CORPUSCULAR HGB CONC 31.6 g/dL (33.0-37.0); MEAN PLATELET VOLUME 7.1 fl (7.2-11.7); MONO # 0.5 K/uL (0.0-0.8); MONO % 2.3 % (0.0-10.0); NEUT # 22.2 K/uL (1.8-7.0); NEUT % 96.2 % (50.0-75.0); NRBC % 0.1 % (0.0-0.0); PLATELET COUNT 256 K/uL (130-400); RED CELL DISTRIBUTION WIDTH 16.7 % (11.5-14.5); WHITE BLOOD COUNT 23.1 K/uL (4.8-10.8)
[2016-09-27 08:02] LABS: BLOOD UREA NITROGEN 20 mg/dl (7-17); CALCIUM 6.9 mg/dL (8.4-10.2); CARBON DIOXIDE 25 mmol/L (22-30); CHLORIDE 106 mmol/L (98-107); GFR AFRICAN-AMERICAN > 60; GLUCOSE,RANDOM 142 mg/dL (65-105); POTASSIUM 3.5 MMOL/L (3.6-5.0); SODIUM 137 mmol/l (132-148)
[2016-09-27] MEDS: Tmp-Smz 200-40mg/5 ml Oral Sus(120 ml) PO SCH ×2 (08:22→20:03)
[2016-09-27] MEDS: Lactobacillus Acidophilus 500 MU Cap PO SCH ×2 (08:49→17:21)
[2016-09-27] MEDS: Enoxaparin 40 mg Syringe SC SCH (08:50)
[2016-09-27] MEDS: Famotidine 40 MG/5 ML PO SCH (08:51)
[2016-09-27] MEDS: Lidocaine 5% Patch TD SCH (08:52)
[2016-09-27] MEDS: Hydrocerin CREAM TOP SCH ×2 (08:52→17:22)
--- NOTE | 2016-09-27 08:52 | RAD ---
PROCEDURE: CHEST RADIOGRAPH, 1 VIEW. Portable study upright technique 04:35. HISTORY: vented COMPARISON: Multiple serial examinations preceding the most recent study: September 26, 2016. CT pulmonary angiogram September 26, 2016. FINDINGS: LUNGS: Stable infiltrates PLEURA: Stable right pleural effusion CARDIOVASCULAR: Normal. OSSEOUS STRUCTURES: No significant abnormalities. VISUALIZED UPPER ABDOMEN: Normal. OTHER FINDINGS: Stable, satisfactory position ventilatory, vascular apparatus. IMPRESSION: No significant interval change compared to the prior examination(s).
[2016-09-27] MEDS: Sodium Chloride 0.9% 1,000 ML IV SCH ×2 (08:53→21:25)
[2016-09-27] MEDS: methIMAzole 5 MG TAB PO SCH (08:55)
[2016-09-27] MEDS ORDERED: Albuterol 0.083% Inhal Sol (2.5 mg/3 mL) UD INH PRN (09:00)
--- NOTE | 2016-09-27 10:11 | CP.PCM.CON ---
History of Present Illness - History of Present Illness History of Present Illness: This 66-year-old female is well known to me from previous admissions as well as outpatient setting. She had been in a long-term rehabilitation setting and doing relatively well when she abruptly developed shaking chills and weakness with shortness of breath. Prior to this episode she claims she had been feeling relatively well and able to participate in rehabilitation program. She had been seen in the outpatient setting approximately a week prior to this episode, and was noted at that time to be doing quite well with a Passy-Stafford valve inserted in the tracheostomy enabling good volume speech and regular diet by mouth precluding the need for PEG tube feedings. Plan was being developed and have the patient come into the hospital for an observational overnight stay so that the tracheostomy tube as well as PEG tube and her PICC line could all be removed. The sudden episode described in her presenting illness caused her to present to the emergency department where she was found to be in septic shock with pneumonia and gram-positive cocci in chains were ordered from her blood cultures. He presented with significant cytosis as well as hypotension and severe tachycardia. She was admitted to the intensive care unit given volume resuscitation followed by pressors and medication to control her heart rate. She was seen by infectious disease and placed on antibiotics which include coverage for a recent pneumonitis at which time she grew stenotrophomonas maltophilia. Her chest x-ray has shown improvement since hospitalization as has her leukocytosis. Her blood pressure has remained low normal and she continues to receive decreasing pressor support. She is awake and alert and her oxygenation has been good. 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 She has long-standing chronic pulmonary disease with bronchial asthma as well as COPD and has also suffered from thyrotoxicosis for which she is taking methimazole, breast carcinoma bilaterally, metastatic disease to the right humerus, cervical disc disease as well as lumbar disc disease and peripheral neuropathy. Past surgical history: Bilateral mastectomies, right shoulder arthroplasty and subsequent removal of the prosthesis because of infection, lumbar spinal fusion as well as cervical fusion in 2007. Social history: She is a former cigarette smoker who only recently discontinued her habit. Alcohol intake is nil and preceding this had been social only. There is no history of illicit drug use. Family history: Breast cancer, ovarian cancer, pancreatic cancer, lung cancer, colon cancer, hypertension. Past Patient History - Infectious Disease Hx of Infectious Diseases: None - Tetanus Immunizations Tetanus Immunization: Unknown - Past Medical History & Family History Past Medical History?: Yes - Past Social History Smoking Status: Former Smoker Chewing Tobacco Use: No Cigar Use: No Alcohol: None Drugs: Denies Home Situation {Lives}: [facility] - CARDIAC Hx Cardia Arrhythmia: Yes Hx Hypertension: Yes - PULMONARY Hx Asthma: Yes Hx Chronic Obstructive Pulmonary Disease (COPD): Yes Hx Pneumonia: Yes - NEUROLOGICAL Other/Comment: peripheral neuropathy right lower extremity. - HEENT Other/Comment: recent right buccal abscess with possible osteomyelitis of the mandible - RENAL Hx Chronic Kidney Disease: No - ENDOCRINE/METABOLIC Hx Hyperthyroidism: Yes (on methimazole) - HEMATOLOGICAL/ONCOLOGICAL Hx Anemia: Yes Hx Cancer: Yes (breast) Hx Human Immunodeficiency Virus (HIV): No Hx Metastesis: Yes (bone) - INTEGUMENTARY Hx Dermatological Problems: No - MUSCULOSKELETAL/RHEUMATOLOGICAL Hx Falls: No Other/Comment: Cervical as well as lumbar disc disease - GASTROINTESTINAL Hx Gall Bladder Disease: Yes Hx Gastroesophageal Reflux: Yes - GENITOURINARY/GYNECOLOGICAL Hx Genitourinary Disorders: No - PSYCHIATRIC Hx Psychophysiologic Disorder: No Hx Substance Use: No - SURGICAL HISTORY Hx Mastectomy: Yes (right in 1998; left in 2008) Hx Orthopedic Surgery: Yes (2003 rigtht shoulder prosthesis, removal of hardware 2013) Hx Tubal Ligation: Yes Other/Comment: shoulder and humerous replacement with joint space infection and eventual removal of hardware in right shoulder and chronic lymphedema of RUE, groin cyst removal, cervical spinal fusion 2007, lumbar spinal fusion 2007. - ANESTHESIA Hx Anesthesia: Yes Hx Anesthesia Reactions: No Hx Malignant Hyperthermia: No Meds Allergies/Adverse Reactions: Allergies Allergy/AdvReac Type Severity Reaction Status Date / Time paper tape Allergy RASH Uncoded 06/03/16 21:31 - Medications Medications: Current Medications Albuterol Sulfate (Albuterol 0.083% Inhal Aby (2.5 Mg/3 Ml) Ud) 2.5 mg INH RQ6 ANDREAS Alprazolam (Xanax) 0.5 mg PO Q8 PRN PRN Reason: Agitation Last Admin: 09/27/16 08:49 Dose: 0.5 mg Anastrozole (Arimidex 1 Mg Tab) 1 mg PO DAILY ANDREAS Last Admin: 09/27/16 08:54 Dose: 1 mg Diltiazem HCl (Cardizem) 60 mg PO Q8 [facility] Last Admin: 09/27/16 08:55 Dose: 60 mg Enoxaparin Sodium (Lovenox) 40 mg SC DAILY [facility] PRN Reason: Protocol Last Admin: 09/27/16 08:50 Dose: 40 mg Famotidine (Pepcid) 40 mg PO DAILY [facility] Last Admin: 09/27/16 08:51 Dose: 40 mg Furosemide (Lasix) 40 mg IVP Q12 [facility] Last Admin: 09/26/16 08:49 Dose: Not Given Gabapentin (Neurontin) 600 mg PO Q8 [facility] Last Admin: 09/27/16 08:50 Dose: 600 mg Ceftazidime 2 gm/ Sodium (Chloride) 100 mls @ 200 mls/hr IVPB Q8 [facility] Last Admin: 09/27/16 08:51 Dose: 200 mls/hr Linezolid (Zyvox 600mg/300ml D5w) 600 mg in 300 mls @ 300 mls/hr IVPB Q12 [facility] Last Admin: 09/26/16 20:16 Dose: 300 mls/hr Norepinephrine Bitartrate 4 mg (/ Dextrose) 254 mls @ 19.05 mls/hr IV .[id number] ANDREAS; 5 MCG/MIN PRN Reason: Protocol Sodium Chloride (Sodium Chloride 0.9%) 1,000 mls @ 100 mls/hr IV .Q10H [facility] Stop: 09/28/16 08:43 Last Admin: 09/27/16 08:53 Dose: 100 mls/hr Methylprednisolone 30 mg/ (Sodium Chloride) 50 mls @ 100 mls/hr IVPB Q12 [facility] Clindamycin Phosphate 600 mg/ (Sodium Chloride) 104 mls @ 104 mls/hr IVPB Q8 [facility] Lactobacillus Acidophilus (Bacid Acidophilus) 1 cap PO BID [facility] Last Admin: 09/27/16 08:49 Dose: 1 cap Lidocaine (Lidoderm) 1 ea TD DAILY [facility] Last Admin: 09/27/16 08:52 Dose: Not Given Loperamide HCl (Imodium 1mg/7.5ml Ud) 2 mg PO Q4 PRN PRN Reason: Diarrhea Methimazole (Tapazole) 5 mg PO DAILY [facility] Last Admin: 09/27/16 08:55 Dose: 5 mg Metoprolol Tartrate (Lopressor) 6.25 mg PO Q12 [facility] Last Admin: 09/27/16 08:50 Dose: 6.25 mg Multi-Ingredient Cream (Hydrocerin Cream) 1 applic TOP BID [facility] Last Admin: 09/27/16 08:52 Dose: 1 applic Sodium Chloride ([place] Nasal Dequincy) 2 sprays VON Q4 PRN PRN Reason: Nasal congestion Last Admin: 09/26/16 16:17 Dose: 2 spr Spironolactone (Aldactone) 25 mg PO DAILY [facility] Last Admin: 09/27/16 08:55 Dose: 25 mg Trimethoprim/Sulfamethoxazole (Sulfatrim Pediatric Susp) 20 ml PO Q12 [facility] Last Admin: 09/27/16 08:22 Dose: 20 ml Physical Exam - Additional Findings Additional findings: Awake, alert, following commands and responding to questions appropriately. Tracheostomy tube is in place and connected to mechanical ventilation. Conjunctivae are pink and there is no scleral icterus. Nares are patent bilaterally. No bleeding or exudate. Lymphedema of the right upper extremity is noted with a weeping open wound proximally. No cyanosis or clubbing. Trace dependent edema of both ankles. Pharynx is pink and mucous membranes are moist. No dullness on percussion of the anterior chest wall. No palpable subcutaneous emphysema. Breath sounds are present bilaterally. Rhonchi are appreciated and dependent zones bilaterally. No audible wheezing is heard. Medium rales are present in the posterior lower lobes. No bronchial breathing. Heart sounds are distant but rhythm is regular and mildly tachycardic. Abdomen soft and nontender with a PEG tube in place. Bowel sounds are normal. No calf tenderness or palpable venous cords. Results - Vital Signs Recent Vital Signs: Last Vital Signs Temp 97.8 F 09/27/16 08:00 Pulse 84 09/27/16 09:47 Resp 19 09/27/16 09:47 BP 77/57 L 09/27/16 09:47 Pulse Ox 100 09/27/16 09:47 - Labs Result Diagrams: 09/27/16 07:20 09/27/16 07:20 Labs: Laboratory Results - last 24 hr 09/26/16 09/26/16 09/26/16 05:45 15:30 16:00 WBC RBC Hgb Hct MCV MCH MCHC RDW Plt Count MPV Neut % (Auto) Lymph % (Auto) [place] % (Auto) Eos % (Auto) Baso % (Auto) Neut # Lymph # [place] # Eos # Baso # Neutrophils % (Manual) 93 H Band Neutrophils % 2 Lymphocytes % (Manual) 3 L Monocytes % (Manual) 2 Platelet Estimate Normal Plt Clumps, EDTA Present Large Platelets Present Poikilocytosis (manual Slight Anisocytosis (manual) Slight Ovalocytes Slight pCO2 pO2 HCO3 ABG pH ABG Total CO2 ABG O2 Saturation ABG O2 Content ABG Base Excess ABG Hemoglobin ABG Carboxyhemoglobin POC ABG HHb (Measured) ABG Methemoglobin ABG O2 Capacity Tawanda Test A-a O2 Difference Hgb O2 Saturation Vent Mode Mechanical Rate FiO2 Tidal Volume PEEP Sodium Potassium Chloride Carbon Dioxide Anion Gap BUN Creatinine Est GFR ( Amer) Est GFR (Non-Af Amer) Random Glucose Calcium Troponin I 0.0760 Urine Color Yellow Urine Clarity Slighty-cloudy Urine pH 5.0 Ur Specific [place] 1.020 Urine Protein 30 Urine Glucose (UA) 150 Urine Ketones Negative Urine Blood Negative Urine Nitrate Negative Urine Bilirubin Negative Urine Urobilinogen 0.2-1.0 Ur Leukocyte Esterase Neg Urine RBC (Auto) 1 Urine Microscopic WBC 11 H Ur Squamous Epith Cells 1 Urine Bacteria Rare 09/27/16 09/27/16 09/27/16 06:05 07:20 07:20 WBC 23.1 H RBC 3.38 L Hgb 10.2 L Hct 32.3 L MCV 95.5 D MCH 30.2 MCHC 31.6 L RDW 16.7 H Plt Count 256 MPV 7.1 L Neut % (Auto) 96.2 H Lymph % (Auto) 1.3 L [place] % (Auto) 2.3 Eos % (Auto) 0.0 Baso % (Auto) 0.2 Neut # 22.2 H Lymph # 0.3 L [place] # 0.5 Eos # 0.0 Baso # 0.1 Neutrophils % (Manual) Band Neutrophils % Lymphocytes % (Manual) Monocytes % (Manual) Platelet Estimate Plt Clumps, EDTA Large Platelets Poikilocytosis (manual Anisocytosis (manual) Ovalocytes pCO2 35 pO2 103 H HCO3 23.8 ABG pH 7.42 ABG Total CO2 23.8 ABG O2 Saturation 99.8 H ABG O2 Content 14.4 L ABG Base Excess -1.4 ABG Hemoglobin 10.5 L ABG Carboxyhemoglobin 1.9 H POC ABG HHb (Measured) 0.2 ABG Methemoglobin 1.7 ABG O2 Capacity 14.4 L Tawanda Test Yes A-a O2 Difference 210.0 Hgb O2 Saturation 96.2 Vent Mode A/c Mechanical Rate 14 FiO2 50.0 Tidal Volume 400 PEEP 5 Sodium 137 Potassium 3.5 L Chloride 106 Carbon Dioxide 25 Anion Gap 10 BUN 20 H Creatinine 0.5 L Est GFR ( Amer) > 60 Est GFR (Non-Af Amer) > 60 Random Glucose 142 H Calcium 6.9 L Troponin I Urine Color Urine Clarity Urine pH Ur Specific [place] Urine Protein Urine Glucose (UA) Urine Ketones Urine Blood Urine Nitrate Urine Bilirubin Urine Urobilinogen Ur Leukocyte Esterase Urine RBC (Auto) Urine Microscopic WBC Ur Squamous Epith Cells Urine Bacteria Assessment & Plan (1) Septic shock Status: Acute Priority: High (2) Pneumonia Status: Acute Priority: High (3) Acute and chronic respiratory failure with hypercapnia Status: Acute Priority: High (4) Tachyarrhythmia Status: Acute Priority: High (5) Hx of breast cancer Status: Inactive Priority: Low (6) Hyperthyroidism Status: Chronic Priority: High - Assessment and Plan (Free Text) Plan: Significant improvement has been made using current medical regimen. Would not differ from current antibiotic choices. Reduce and discontinue pressors as possible. We'll change mode of ventilation and hopefully place on T bar later today. Fluid and electrolyte balance will be maintained. Ultimate goal would be to remove PEG tube as well as PICC line and hopefully decannulate tracheostomy if able. Continue maintenance aerosol therapies for COPD and reduce parenteral corticosteroids as quickly as possible. - Date & Time Date: 09/27/16 Time: 10:24
[2016-09-27] MEDS: Linezolid 600 mg in D5W 300 ml 600 MG/300 ML BAG IVPB SCH ×2 (10:22→20:00)
[2016-09-27 12:34] LABS: NEUTROPHIL 95 % (42-75); TOTAL CELLS COUNTED 100
[2016-09-27] MEDS: Nasal Spray(Ocean spray) NAS PRN (12:51)
--- NOTE | 2016-09-27 16:48 | CARD ---
APPROVED REPORT EKG Measurement Heart [id number] <Conclusion> Sinus tachycardia Septal infarct, age undetermined Cannot rule out Inferior infarct, age undetermined Abnormal ECG
[2016-09-27] MEDS: Clindamycin 600 MG in Sodium Chloride 0.9% 100 ML IVPB SCH (17:19)
--- NOTE | 2016-09-27 17:29 | CP.CCUPN ---
CCU Subjective - Physician Review Events Since Last Encounter (Free Text): 09/27/16 17:27 No complaints, patient on vent via trach. CCU Objective - Vital Signs / Intake & Output Vital Signs (Last 4 hours): Vital Signs Temp Pulse Resp BP Pulse Ox 09/27/16 16:30 85 15 96/64 L 100 09/27/16 16:00 98.1 F 88 13 94/64 L 99 09/27/16 15:30 83 15 93/63 L 99 09/27/16 15:00 88 14 95/76 L 97 09/27/16 14:00 86 16 91/62 L 100 Intake and Output (Last 8hrs): Intake & Output 09/27/16 09/27/16 09/27/16 06:59 14:59 22:59 Intake Total 910 522.910 Output Total 750 Balance 160 522.910 Intake: IV 600 365.910 Intake, Piggyback 250 57 Free Water Flush 60 100 Output: Urine 750 Urethral (Kimble) 750 - Physical Exam Head: Positive for: Atraumatic, Normocephalic Pupils: Positive for: PERRL Extroacular Muscles: Positive for: EOMI Mouth: Positive for: Moist Mucous Membranes Respiratory/Chest: Positive for: Clear to Auscultation Cardiovascular: Positive for: Regular Rate and Rhythm Abdomen: Positive for: Normal Bowel Sounds, Ostomy Tubes (PEG in place). Negative for: Tenderness, Distention Psychiatric: Positive for: Alert - Medications Active Medications: Active Medications Generic Name Dose Route Start Last Admin Trade Name Freq PRN Reason Stop Dose Admin Albuterol Sulfate 2.5 mg 09/27/16 14:00 Albuterol 0.083% Inhal Aby (2.5 Mg/3 Ml) Ud INH RQ6 ANDREAS Alprazolam 0.5 mg 09/25/16 16:29 09/27/16 08:49 Xanax PO 0.5 mg Q8 PRN Administration Agitation Anastrozole 1 mg 09/26/16 09:00 09/27/16 08:54 Arimidex 1 Mg Tab PO 1 mg DAILY ANDREAS Administration Diltiazem HCl 30 mg 09/27/16 17:00 09/27/16 17:14 Cardizem PO 30 mg Q8 ANDREAS Administration Enoxaparin Sodium 40 mg 09/26/16 09:00 09/27/16 08:50 Lovenox SC 40 mg DAILY ANDREAS Administration Protocol Famotidine 40 mg 09/26/16 09:00 09/27/16 08:51 Pepcid PO 40 mg DAILY ANDREAS Administration Furosemide 40 mg 09/26/16 09:00 09/26/16 08:49 Lasix IVP Not Given Q12 ANDREAS Gabapentin 600 mg 09/25/16 17:00 09/27/16 17:14 Neurontin PO 600 mg Q8 ANDREAS Administration Ceftazidime 2 gm/ Sodium 100 mls @ 200 mls/hr 09/26/16 17:00 09/27/16 17:17 Chloride IVPB 200 mls/hr Q8 ANDREAS Administration Linezolid 600 mg in 300 mls @ 300 mls/hr 09/26/16 21:00 09/27/16 10:22 Zyvox 600mg/300ml D5w IVPB 300 mls/hr Q12 ANDREAS Administration Norepinephrine Bitartrate 4 mg 254 mls @ 19.05 mls/hr 09/27/16 04:30 13:00 / Dextrose IV 2.5 mcg/min .[id number] ANDREAS 9.52 mls/hr Protocol Titration 5 MCG/MIN Sodium Chloride 1,000 mls @ 100 mls/hr 09/27/16 08:45 09/27/16 08:53 Sodium Chloride 0.9% IV 09/28/16 08:43 100 mls/hr .Q10H ANDREAS Administration Methylprednisolone 30 mg/ 50 mls @ 100 mls/hr 09/27/16 21:00 Sodium Chloride IVPB Q12 ANDREAS Clindamycin Phosphate 600 mg/ 104 mls @ 104 mls/hr 09/27/16 17:00 09/27/16 17 :19 Sodium Chloride IVPB 104 mls/hr Q8 ANDREAS Administration Lactobacillus Acidophilus 1 cap 09/25/16 17:00 09/27/16 17:21 Bacid Acidophilus PO 1 cap BID ANDREAS Administration Lidocaine 1 ea 09/25/16 16:30 09/27/16 08:52 Lidoderm TD Not Given DAILY ANDREAS Loperamide HCl 2 mg 09/26/16 18:14 Imodium 1mg/7.5ml Ud PO Q4 PRN Diarrhea Methimazole 5 mg 09/26/16 09:00 05/22/17 08:55 Tapazole PO 5 mg DAILY ANDREAS Administration Metoprolol Tartrate 6.25 mg 09/25/16 21:00 09/27/16 08:50 Lopressor PO 6.25 mg Q12 ANDREAS Administration Multi-Ingredient Cream 1 applic 09/25/16 17:00 09/27/16 17:22 Hydrocerin Cream TOP 1 applic BID ANDREAS Administration Sodium Chloride 2 sprays 09/26/16 12:15 09/27/16 12:51 [place] Nasal [place] VON 2 spr Q4 PRN Administration Nasal congestion Spironolactone 25 mg 09/25/16 16:30 09/27/16 08:55 Aldactone PO 25 mg DAILY ANDREAS Administration Trimethoprim/Sulfamethoxazole 20 ml 09/25/16 21:00 09/27/16 08:22 Sulfatrim Pediatric Susp PO 20 ml Q12 ANDREAS Administration - Patient Studies Lab Studies: Microbiology Studies 09/25/16 19:57 Urine Culture - Final Urine,Kimble No Growth (<1,000 CFU/ML) 09/25/16 19:57 Gram Stain - Final Arm - Right 09/25/16 19:57 Blood Culture - Preliminary Blood-Thru Central Line NO GROWTH AFTER 24 HOURS Lab Studies 09/27/16 09/27/16 09/27/16 Range/Units 07:20 07:20 06:05 WBC 23.1 H (4.8-10.8) K/uL RBC 3.38 L (3.80-5.20) Mil/uL Hgb 10.2 L (12.0-16.0) g/dL Hct 32.3 L (34.0-47.0) % MCV 95.5 D (81.0-99.0) fl MCH 30.2 (27.0-31.0) pg MCHC 31.6 L (33.0-37.0) g/dL RDW 16.7 H (11.5-14.5) % Plt Count 256 (130-400) K/uL MPV 7.1 L (7.2-11.7) fl Neut % (Auto) 96.2 H (50.0-75.0) % Lymph % (Auto) 1.3 L (20.0-40.0) % [place] % (Auto) 2.3 (0.0-10.0) % Eos % (Auto) 0.0 (0.0-4.0) % Baso % (Auto) 0.2 (0.0-2.0) % Neut # 22.2 H (1.8-7.0) K/uL Lymph # 0.3 L (1.0-4.3) K/uL [place] # 0.5 (0.0-0.8) K/uL Eos # 0.0 (0.0-0.7) K/uL Baso # 0.1 (0.0-0.2) K/uL Neutrophils % (Manual) 95 H (42-75) % Lymphocytes % (Manual) 2 L (20-50) % Monocytes % (Manual) 3 (0-10) % Platelet Estimate Normal (NORMAL) Hypochromasia (manual) Slight Anisocytosis (manual) Slight Ovalocytes Slight pCO2 35 (35-45) mm/Hg pO2 103 H (80-100) mm/Hg HCO3 23.8 (21-28) mmol/L ABG pH 7.42 (7.35-7.45) ABG Total CO2 23.8 (22-28) mmol/L ABG O2 Saturation 99.8 H (95-98) % ABG O2 Content 14.4 L (15-23) ML/dL ABG Base Excess -1.4 (-2.0-3.0) mmol/L ABG Hemoglobin 10.5 L (11.7-17.4) g/dL ABG Carboxyhemoglobin 1.9 H (0.5-1.5) % POC ABG HHb (Measured) 0.2 (0.0-5.0) % ABG Methemoglobin 1.7 (0.0-3.0) % ABG O2 Capacity 14.4 L (16-24) mL/dL Tawanda Test Yes A-a O2 Difference 210.0 mm/Hg Hgb O2 Saturation 96.2 (95.0-98.0) % Vent Mode A/c Mechanical Rate 14 FiO2 50.0 % Tidal Volume 400 PEEP 5 Sodium 137 (132-148) mmol/l Potassium 3.5 L (3.6-5.0) MMOL/L Chloride 106 (98-107) mmol/L Carbon Dioxide 25 (22-30) mmol/L Anion Gap 10 (10-20) BUN 20 H (7-17) mg/dl Creatinine 0.5 L (0.7-1.2) mg/dL Est GFR ( Amer) > 60 Est GFR (Non-Af Amer) > 60 POC Glucose (mg/dL) (65-110) mg/dL Random Glucose 142 H (65-105) mg/dL Calcium 6.9 L (8.4-10.2) mg/dL 09/25/16 Range/Units 16:54 WBC (4.8-10.8) K/uL RBC (3.80-5.20) Mil/uL Hgb (12.0-16.0) g/dL Hct (34.0-47.0) % MCV (81.0-99.0) fl MCH (27.0-31.0) pg MCHC (33.0-37.0) g/dL RDW (11.5-14.5) % Plt Count (130-400) K/uL MPV (7.2-11.7) fl Neut % (Auto) (50.0-75.0) % Lymph % (Auto) (20.0-40.0) % [place] % (Auto) (0.0-10.0) % Eos % (Auto) (0.0-4.0) % Baso % (Auto) (0.0-2.0) % Neut # (1.8-7.0) K/uL Lymph # (1.0-4.3) K/uL [place] # (0.0-0.8) K/uL Eos # (0.0-0.7) K/uL Baso # (0.0-0.2) K/uL Neutrophils % (Manual) (42-75) % Lymphocytes % (Manual) (20-50) % Monocytes % (Manual) (0-10) % Platelet Estimate (NORMAL) Hypochromasia (manual) Anisocytosis (manual) Ovalocytes pCO2 (35-45) mm/Hg pO2 (80-100) mm/Hg HCO3 (21-28) mmol/L ABG pH (7.35-7.45) ABG Total CO2 (22-28) mmol/L ABG O2 Saturation (95-98) % ABG O2 Content (15-23) ML/dL ABG Base Excess (-2.0-3.0) mmol/L ABG Hemoglobin (11.7-17.4) g/dL ABG Carboxyhemoglobin (0.5-1.5) % POC ABG HHb (Measured) (0.0-5.0) % ABG Methemoglobin (0.0-3.0) % ABG O2 Capacity (16-24) mL/dL Tawanda Test A-a O2 Difference mm/Hg Hgb O2 Saturation (95.0-98.0) % Vent Mode Mechanical Rate FiO2 % Tidal Volume PEEP Sodium (132-148) mmol/l Potassium (3.6-5.0) MMOL/L Chloride (98-107) mmol/L Carbon Dioxide (22-30) mmol/L Anion Gap (10-20) BUN (7-17) mg/dl Creatinine (0.7-1.2) mg/dL Est GFR ( Amer) Est GFR (Non-Af Amer) POC Glucose (mg/dL) 213 H (65-110) mg/dL Random Glucose (65-105) mg/dL Calcium (8.4-10.2) mg/dL Laboratory Results - last 24 hr 09/25/16 09/27/16 09/27/16 16:54 06:05 07:20 WBC 23.1 H RBC 3.38 L Hgb 10.2 L Hct 32.3 L MCV 95.5 D MCH 30.2 MCHC 31.6 L RDW 16.7 H Plt Count 256 MPV 7.1 L Neut % (Auto) 96.2 H Lymph % (Auto) 1.3 L [place] % (Auto) 2.3 Eos % (Auto) 0.0 Baso % (Auto) 0.2 Neut # 22.2 H Lymph # 0.3 L [place] # 0.5 Eos # 0.0 Baso # 0.1 Neutrophils % (Manual) 95 H Lymphocytes % (Manual) 2 L Monocytes % (Manual) 3 Platelet Estimate Normal Hypochromasia (manual) Slight Anisocytosis (manual) Slight Ovalocytes Slight pCO2 35 pO2 103 H HCO3 23.8 ABG pH 7.42 ABG Total CO2 23.8 ABG O2 Saturation 99.8 H ABG O2 Content 14.4 L ABG Base Excess -1.4 ABG Hemoglobin 10.5 L ABG Carboxyhemoglobin 1.9 H POC ABG HHb (Measured) 0.2 ABG Methemoglobin 1.7 ABG O2 Capacity 14.4 L Tawanda Test Yes A-a O2 Difference 210.0 Hgb O2 Saturation 96.2 Vent Mode A/c Mechanical Rate 14 FiO2 50.0 Tidal Volume 400 PEEP 5 Sodium Potassium Chloride Carbon Dioxide Anion Gap BUN Creatinine Est GFR ( Amer) Est GFR (Non-Af Amer) POC Glucose (mg/dL) 213 H Random Glucose Calcium 09/27/16 07:20 WBC RBC Hgb Hct MCV MCH MCHC RDW Plt Count MPV Neut % (Auto) Lymph % (Auto) [place] % (Auto) Eos % (Auto) Baso % (Auto) Neut # Lymph # [place] # Eos # Baso # Neutrophils % (Manual) Lymphocytes % (Manual) Monocytes % (Manual) Platelet Estimate Hypochromasia (manual) Anisocytosis (manual) Ovalocytes pCO2 pO2 HCO3 ABG pH ABG Total CO2 ABG O2 Saturation ABG O2 Content ABG Base Excess ABG Hemoglobin ABG Carboxyhemoglobin POC ABG HHb (Measured) ABG Methemoglobin ABG O2 Capacity T[place]anda Test A-a O2 Difference Hgb O2 Saturation Vent Mode Mechanical Rate FiO2 Tidal Volume PEEP Sodium 137 Potassium 3.5 L Chloride 106 Carbon Dioxide 25 Anion Gap 10 BUN 20 H Creatinine 0.5 L Est GFR ( Amer) > 60 Est GFR (Non-Af Amer) > 60 POC Glucose (mg/dL) Random Glucose 142 H Calcium 6.9 L Fingerstick Blood Sugar Results: 284 Review of Systems - Review of Systems Systems not reviewed;Unavailable: Intubated Critical Care Progress Note - Ventilator Checklist Head of Bed 30 Degrees: Yes Daily Sedation Vacation: Yes Daily Assessment of Readiness to Wean: Yes Daily Spontaneous Breathing Trial: Yes PUD Prophalyxis: Yes DVT Prophylaxis: Yes Assessment/Plan (1) Pneumonia Assessment and plan: 66 yo female PMH Chronic Respiratory Failure with Trach (placed 07/2016), s/p gastric tube, CHF (systolic+diastolic), COPD, bilateral metastatic breast CA to shoulder s/p chemo/rad 8 years ago (s/p humerus resection) with chronic lymphedema RUE, HTN, hyperthyroidism, tachycardia/SVT, R cephalic vein thrombosis, anxiety, brought in by EMS with severe acute respiratory distress. Neuro: Alert and following commands. Peripheral neuropathy continue Arimidex and gabapentin. Lidocaine patch. Pulm: Acute respiratory failure, on ventilator via trach. COPD on Solu-Medrol 30 mg IV every 12. CV: Hemodynamically stable Hem: No acute issues Renal: No acute issues, urine output within normal limits, will monitor. Patient is in mildly positive findings status, we'll diuresis. Endo: Hypothyroidism continue Tapazole. GI: Patient is well eval today to see if patient can swallow and trach if not will start on tube feeds. ID: Severe sepsis secondary to pneumonia, continue Zyvox, Bactrim, Fortaz and clindamycin. DVT proph - Lovenox GI proph - Pepcid kimble for strict I/O's during acute illness Code status - full code Crtical Care Time spent 35 minutes Multi-disciplinary rounds were performed with house staff, nursing, speech therapy, respiratory therapy, pharmacy and nutrition with integrated input from the primary team/attending and other consulting services. The documented time is cumulative and includes review of patient data/exams/labs/chart review and examination of the patient on rounds and throughout the day; time is exclusive of any procedures or teaching time. Current Visit: Yes Status: Acute Priority: High
--- NOTE | 2016-09-27 18:01 | CP.PCM.CON ---
History of Present Illness - History of Present Illness History of Present Illness: Patient with h/o tracheostomy and previously had PEG placed. She has been in a chronic care facility and has been able to eat. She has not been using the gastrostomy for a while and consult was callled to remove it. This admission was precipitated by pneumonia and patient on ventillation Review of Systems - Constitutional Constitutional: Chills - EENT Eyes: absent: Blind Spots Nose/Mouth/Throat: absent: Epistaxis - Cardiovascular Cardiovascular: absent: Chest Pain - Respiratory Respiratory: Dyspnea - Gastrointestinal Gastrointestinal: absent: Abdominal Pain Past Patient History - Infectious Disease Hx of Infectious Diseases: None - Tetanus Immunizations Tetanus Immunization: Unknown - Past Medical History & Family History Past Medical History?: Yes - Past Social History Smoking Status: Former Smoker Chewing Tobacco Use: No Cigar Use: No Alcohol: None Drugs: Denies Home Situation {Lives}: Jail - CARDIAC Hx Cardia Arrhythmia: Yes Hx Hypertension: Yes - PULMONARY Hx Asthma: Yes Hx Chronic Obstructive Pulmonary Disease (COPD): Yes Hx Pneumonia: Yes - NEUROLOGICAL Other/Comment: peripheral neuropathy right lower extremity. - HEENT Other/Comment: recent right buccal abscess with possible osteomyelitis of the mandible - RENAL Hx Chronic Kidney Disease: No - ENDOCRINE/METABOLIC Hx Hyperthyroidism: Yes (on methimazole) - HEMATOLOGICAL/ONCOLOGICAL Hx Anemia: Yes Hx Cancer: Yes (breast) Hx Human Immunodeficiency Virus (HIV): No Hx Metastesis: Yes (bone) - INTEGUMENTARY Hx Dermatological Problems: No - MUSCULOSKELETAL/RHEUMATOLOGICAL Hx Falls: No Other/Comment: Cervical as well as lumbar disc disease - GASTROINTESTINAL Hx Gall Bladder Disease: Yes Hx Gastroesophageal Reflux: Yes - GENITOURINARY/GYNECOLOGICAL Hx Genitourinary Disorders: No - PSYCHIATRIC Hx Psychophysiologic Disorder: No Hx Substance Use: No - SURGICAL HISTORY Hx Mastectomy: Yes (right in 1998; left in 2008) Hx Orthopedic Surgery: Yes (2003 rigtht shoulder prosthesis, removal of hardware 2013) Hx Tubal Ligation: Yes Other/Comment: shoulder and humerous replacement with joint space infection and eventual removal of hardware in right shoulder and chronic lymphedema of RUE, groin cyst removal, cervical spinal fusion 2007, lumbar spinal fusion 2007. - ANESTHESIA Hx Anesthesia: Yes Hx Anesthesia Reactions: No Hx Malignant Hyperthermia: No Meds Allergies/Adverse Reactions: Allergies Allergy/AdvReac Type Severity Reaction Status Date / Time paper tape Allergy RASH Uncoded 06/03/16 21:31 - Medications Medications: Current Medications Albuterol Sulfate (Albuterol 0.083% Inhal Aby (2.5 Mg/3 Ml) Ud) 2.5 mg INH RQ6 ANDRE[facility] Alprazolam (Xanax) 0.5 mg PO Q8 PRN PRN Reason: Agitation Last Admin: 09/27/16 08:49 Dose: 0.5 mg Anastrozole (Arimidex 1 Mg Tab) 1 mg PO DAILY [facility] Last Admin: 09/27/16 08:54 Dose: 1 mg Diltiazem HCl (Cardizem) 30 mg PO Q8 [facility]RE[facility] Last Admin: 09/27/16 17:14 Dose: 30 mg Enoxaparin Sodium (Lovenox) 40 mg SC DAILY [facility]RE[facility] PRN Reason: Protocol Last Admin: 09/27/16 08:50 Dose: 40 mg Famotidine (Pepcid) 40 mg PO DAILY [facility] Last Admin: 09/27/16 08:51 Dose: 40 mg Furosemide (Lasix) 40 mg IVP Q12 [facility] Last Admin: 09/26/16 08:49 Dose: Not Given Gabapentin (Neurontin) 600 mg PO Q8 [facility] Last Admin: 09/27/16 17:14 Dose: 600 mg Ceftazidime 2 gm/ Sodium (Chloride) 100 mls @ 200 mls/hr IVPB Q8 [facility] Last Admin: 09/27/16 17:17 Dose: 200 mls/hr Linezolid (Zyvox 600mg/300ml D5w) 600 mg in 300 mls @ 300 mls/hr IVPB Q12 [facility] Last Admin: 09/27/16 10:22 Dose: 300 mls/hr Norepinephrine Bitartrate 4 mg (/ Dextrose) 254 mls @ 19.05 mls/hr IV .[id number] ANDREAS; 5 MCG/MIN PRN Reason: Protocol Last Titration: 09/27/16 13:00 Dose: 2.5 mcg/min, 9.52 mls/hr Sodium Chloride (Sodium Chloride 0.9%) 1,000 mls @ 100 mls/hr IV .Q10H [facility] Stop: 09/28/16 08:43 Last Admin: 09/27/16 08:53 Dose: 100 mls/hr Methylprednisolone 30 mg/ (Sodium Chloride) 50 mls @ 100 mls/hr IVPB Q12 [facility] Clindamycin Phosphate 600 mg/ (Sodium Chloride) 104 mls @ 104 mls/hr IVPB Q8 [facility] Last Admin: 09/27/16 17:19 Dose: 104 mls/hr Lactobacillus Acidophilus (Bacid Acidophilus) 1 cap PO BID [facility] Last Admin: 09/27/16 17:21 Dose: 1 cap Lidocaine (Lidoderm) 1 ea TD DAILY [facility] Last Admin: 09/27/16 08:52 Dose: Not Given Loperamide HCl (Imodium 1mg/7.5ml Ud) 2 mg PO Q4 PRN PRN Reason: Diarrhea Methimazole (Tapazole) 5 mg PO DAILY [facility] Last Admin: 09/27/16 08:55 Dose: 5 mg Metoprolol Tartrate (Lopressor) 6.25 mg PO Q12 [facility] Last Admin: 09/27/16 08:50 Dose: 6.25 mg Multi-Ingredient Cream (Hydrocerin Cream) 1 applic TOP BID [facility] Last Admin: 09/27/16 17:22 Dose: 1 applic Sodium Chloride ([place] Nasal [place]) 2 sprays VON Q4 PRN PRN Reason: Nasal congestion Last Admin: 09/27/16 12:51 Dose: 2 spr Spironolactone (Aldactone) 25 mg PO DAILY [facility] Last Admin: 09/27/16 08:55 Dose: 25 mg Trimethoprim/Sulfamethoxazole (Sulfatrim Pediatric Susp) 20 ml PO Q12 [facility] Last Admin: 09/27/16 08:22 Dose: 20 ml Physical Exam - Head Exam Head Exam: NORMAL INSPECTION - Eye Exam Pupil Exam: PERRL - ENT Exam ENT Exam: Normal Exam - Respiratory Exam Respiratory Exam: NORMAL BREATHING PATTERN - Cardiovascular Exam Cardiovascular Exam: REGULAR RHYTHM - GI/Abdominal Exam GI & Abdominal Exam: Normal Bowel Sounds, Soft Results - Vital Signs Recent Vital Signs: Last Vital Signs Temp 98.1 F 09/27/16 16:00 Pulse 85 09/27/16 16:30 Resp 15 09/27/16 16:30 BP 96/64 L 09/27/16 16:30 Pulse Ox 100 09/27/16 16:30 - Labs Result Diagrams: 09/27/16 07:20 09/27/16 07:20 Labs: Laboratory Results - last 24 hr 09/25/16 09/27/16 09/27/16 16:54 06:05 07:20 WBC 23.1 H RBC 3.38 L Hgb 10.2 L Hct 32.3 L MCV 95.5 D MCH 30.2 MCHC 31.6 L RDW 16.7 H Plt Count 256 MPV 7.1 L Neut % (Auto) 96.2 H Lymph % (Auto) 1.3 L [place] % (Auto) 2.3 Eos % (Auto) 0.0 Baso % (Auto) 0.2 Neut # 22.2 H Lymph # 0.3 L Webster # 0.5 Eos # 0.0 Baso # 0.1 Neutrophils % (Manual) 95 H Lymphocytes % (Manual) 2 L Monocytes % (Manual) 3 Platelet Estimate Normal Hypochromasia (manual) Slight Anisocytosis (manual) Slight Ovalocytes Slight pCO2 35 pO2 103 H HCO3 23.8 ABG pH 7.42 ABG Total CO2 23.8 ABG O2 Saturation 99.8 H ABG O2 Content 14.4 L ABG Base Excess -1.4 ABG Hemoglobin 10.5 L ABG Carboxyhemoglobin 1.9 H POC ABG HHb (Measured) 0.2 ABG Methemoglobin 1.7 ABG O2 Capacity 14.4 L Tawanda Test Yes A-a O2 Difference 210.0 Hgb O2 Saturation 96.2 Vent Mode A/c Mechanical Rate 14 FiO2 50.0 Tidal Volume 400 PEEP 5 Sodium Potassium Chloride Carbon Dioxide Anion Gap BUN Creatinine Est GFR ( Amer) Est GFR (Non-Af Amer) POC Glucose (mg/dL) 213 H Random Glucose Calcium 09/27/16 07:20 WBC RBC Hgb Hct MCV MCH MCHC RDW Plt Count MPV Neut % (Auto) Lymph % (Auto) [place] % (Auto) Eos % (Auto) Baso % (Auto) Neut # Lymph # [place] # Eos # Baso # Neutrophils % (Manual) Lymphocytes % (Manual) Monocytes % (Manual) Platelet Estimate Hypochromasia (manual) Anisocytosis (manual) Ovalocytes pCO2 pO2 HCO3 ABG pH ABG Total CO2 ABG O2 Saturation ABG O2 Content ABG Base Excess ABG Hemoglobin ABG Carboxyhemoglobin POC ABG HHb (Measured) ABG Methemoglobin ABG O2 Capacity Tawanda Test A-a O2 Difference Hgb O2 Saturation Vent Mode Mechanical Rate FiO2 Tidal Volume PEEP Sodium 137 Potassium 3.5 L Chloride 106 Carbon Dioxide 25 Anion Gap 10 BUN 20 H Creatinine 0.5 L Est GFR ( Amer) > 60 Est GFR (Non-Af Amer) > 60 POC Glucose (mg/dL) Random Glucose 142 H Calcium 6.9 L Assessment & Plan (1) PEG (percutaneous endoscopic gastrostomy) adjustment/replacement/removal Assessment and Plan: Currently patient being ventillated and not eating on her own. When her condition improves and is again ingesting adequate calories by mouth, will remove PEG. Status: Acute
[2016-09-27] MEDS ORDERED: Albumin Human 5% (12.5 gm/250 ml) IV ONE (19:06)
--- NOTE | 2016-09-27 21:43 | CP.PCM.PN ---
Subjective - Date & Time of Evaluation Date of Evaluation: 09/27/16 Time of Evaluation: 08:30 - Subjective Subjective: Patient was seen and evaluated bedside. Intubated via trache on MV PRVC Ac mode 14/500/400/5 with ABG 35/103/23/7.4 , not sedated ,awake and alert , conversing . changed to PS mode and tolerating well Still hypotensive BP 96/65 on Levophed drip , afebrile HR 89 No acute issues overnight WBC trending down to 23 K HGb 10 Plt 256 CXR showed bilateral infiltrates more on the right Blood cx positive for gram positive cocci in clusters Peg in place with Jevity Gutierrez in place with good urine output 3337/[address] Objective - Vital Signs/Intake and Output Vital Signs (last 24 hours): Temp Pulse Resp BP Pulse Ox 98.3 F 87 13 135/65 99 09/27/16 19:55 09/27/16 21:00 09/27/16 21:00 09/27/16 21:00 09/27/16 21:00 Intake and Output: 09/27/16 09/28/16 18:59 06:59 Intake Total 2182.910 528.09 Output Total 750 0 Balance 1432.910 528.09 - Medications Medications: Current Medications Albuterol Sulfate (Albuterol 0.083% Inhal Aby (2.5 Mg/3 Ml) Ud) 2.5 mg INH RQ6 [facility] Last Admin: 09/27/16 20:30 Dose: 2.5 mg Alprazolam (Xanax) 0.5 mg PO Q8 PRN PRN Reason: Agitation Last Admin: 09/27/16 21:27 Dose: 0.5 mg Anastrozole (Arimidex 1 Mg Tab) 1 mg PO DAILY [facility] Last Admin: 09/27/16 08:54 Dose: 1 mg Diltiazem HCl (Cardizem) 30 mg PO Q8 [facility] Last Admin: 09/27/16 17:14 Dose: 30 mg Enoxaparin Sodium (Lovenox) 40 mg SC DAILY [facility] PRN Reason: Protocol Last Admin: 09/27/16 08:50 Dose: 40 mg Famotidine (Pepcid) 40 mg PO DAILY [facility] Last Admin: 09/27/16 08:51 Dose: 40 mg Furosemide (Lasix) 40 mg IVP Q12 [facility] Last Admin: 09/27/16 20:08 Dose: 40 mg Gabapentin (Neurontin) 600 mg PO Q8 [facility] Last Admin: 09/27/16 17:14 Dose: 600 mg Ceftazidime 2 gm/ Sodium (Chloride) 100 mls @ 200 mls/hr IVPB Q8 [facility] Last Admin: 09/27/16 17:17 Dose: 200 mls/hr Linezolid (Zyvox 600mg/300ml D5w) 600 mg in 300 mls @ 300 mls/hr IVPB Q12 [facility] Last Admin: 09/27/16 20:00 Dose: 300 mls/hr Norepinephrine Bitartrate 4 mg (/ Dextrose) 254 mls @ 19.05 mls/hr IV .[id number] ANDREAS; 5 MCG/MIN PRN Reason: Protocol Last Admin: 09/27/16 21:36 Dose: 2.5 mcg/min, 9.52 mls/hr Sodium Chloride (Sodium Chloride 0.9%) 1,000 mls @ 100 mls/hr IV .Q10H [facility] Stop: 09/28/16 08:43 Last Admin: 09/27/16 21:25 Dose: 100 mls/hr Methylprednisolone 30 mg/ (Sodium Chloride) 50 mls @ 100 mls/hr IVPB Q12 [facility] Last Admin: 09/27/16 20:04 Dose: 100 mls/hr Clindamycin Phosphate 600 mg/ (Sodium Chloride) 104 mls @ 104 mls/hr IVPB Q8 [facility] Last Admin: 09/27/16 17:19 Dose: 104 mls/hr Lactobacillus Acidophilus (Bacid Acidophilus) 1 cap PO BID [facility] Last Admin: 09/27/16 17:21 Dose: 1 cap Lidocaine (Lidoderm) 1 ea TD DAILY [facility] Last Admin: 09/27/16 08:52 Dose: Not Given Loperamide HCl (Imodium 1mg/7.5ml Ud) 2 mg PO Q4 PRN PRN Reason: Diarrhea Methimazole (Tapazole) 5 mg PO DAILY [facility] Last Admin: 09/27/16 08:55 Dose: 5 mg Metoprolol Tartrate (Lopressor) 6.25 mg PO Q12 [facility] Last Admin: 09/27/16 20:06 Dose: 6.25 mg Multi-Ingredient Cream (Hydrocerin Cream) 1 applic TOP BID [facility] Last Admin: 09/27/16 17:22 Dose: 1 applic Sodium Chloride ([place] Nasal [place]) 2 sprays VON Q4 PRN PRN Reason: Nasal congestion Last Admin: 09/27/16 12:51 Dose: 2 spr Spironolactone (Aldactone) 25 mg PO DAILY [facility] Last Admin: 09/27/16 08:55 Dose: 25 mg Trimethoprim/Sulfamethoxazole (Sulfatrim Pediatric Susp) 20 ml PO Q12 [facility] Last Admin: 09/27/16 20:03 Dose: 20 ml - Labs Labs: 09/27/16 07:20 09/27/16 07:20 PT 11.3 SECONDS (9.6-11.2) H 09/25/16 13:00 INR 1.09 (0.92-1.08) H 09/25/16 13:00 APTT 26.6 SECONDS (23.3-32.5) 09/25/16 13:00 Assessment and Plan - Assessment and Plan (Free Text) Assessment: 66 y/o female PMH Chronic Respiratory Failure with Trach (placed 07/2016), s/p gastric tube, CHF (systolic+diastolic), COPD, bilateral metastatic breast CA to shoulder s/p chemo/rad 8 years ago (s/p humerus resection) with chronic lymphedema RUE, HTN, hyperthyroidism, tachycardia/SVT, R cephalic vein thrombosis, anxiety, brought in by EMS with severe acute respiratory distress associated with altered mental status/confusion from jail, not ameliorated by anything. She was administered 1 duoneb and 3 albuterols along with terbutaline and MgSO4.Airleak was present at time of arrival to ER, ABG showed hypercarbia and trach was changed from uncuffed to cuffed trache by ER and connected to MV PRVC/ AC mode Patient found to be tachycardic, tachypneic ,hypotensive , febrile Tmax 103, elevated WBC and CXR showed bilateral infiltrates. She was admitted in ICU in septic shok, started on IVF, pressors and IV antibiotics. Blood cx growing gram positive cocci in clusters. ID , pulmonary consulted At present AAOx3 , mental status improved to her baseline , tolerating PS mode , still on Levophed mode 1.Acute on Chronic Hypercapneic Respiratory Failure -- multifactorial secondary to COPD exacerbation ,HCAP ,pleural effusion and CHF exacerbation trach changed to cuffed tube by ER physician Placed on Vent PRVC AC 400/14/5/50%, with good oxygenation ABG 35/103/23/7.4 Changed to PS and tolerating well Pulmonary on consult following closely Continue Duonebs, Solumedrol , IV antibiotics 2. Septic shock patient was febrile, hypotenive ,tachypneic , tachycardic,with elevated WBC, with AMS,Pneumonia on CXR and positive blood cultures Blood cx positive for gram positive cocci in clusters and urine positive for yeast ID consulted Continue levophed, IVF Continue Fortaz, Linezolid, Clindamycin. Consider removing cental line on Right upper chest since has been there for > 2 months 3. Bacteremia Gram positive cocci in clusters Follow up repeat Blood cx Continue IV Zyvox Consider removing IV central line 4.Bilateral Small/ moderate pleural effusion CTA showed sm to mod bilateral pleural effusions Pulmonary consulted Continue current management 5.Acute on Chronic Decompensated Systolic and Diastolic Heart Failure With vascular congestion on admission that improved , BNP 7130 LAST ECHO 06/14/2016: Mild to moderate decreased LVEF 40-45%, RV moderately dilated, decreased RV function, Diastolic inflow pattern restrictive Daily weights and Regular diet. Continue Lopressor 6.25mg q12 and Spironolactone 25 mg po daily Monitor for fluid overload, Lasix as necessary 6. PE ruled out CTA neg for PE Dimer elevated in ER 4.9, CTA NEG for PE Pt does have hx of R cephalic vein thrombosis 7.Elevated Troponin Most likely 2/2 cardiac strain due to prolonged sinus tachycardia Cardiology Consult with Dr. Manuel Luu appreciated 8.Sinus Tachycardia/Hx SVT Patient is on Verapamil 180 MG CR, currently hold off Cardizem drip Started on Cardizem PO and lopressor 9.Hx Bilateral Mastectomy, breast CA with chronic lymphedema RUE and peripheral neuropathy Continue Arimidex 1 mg po Daily Continue Gabapentin 600 mg po q8h Lidocaine patch 10.Hypertension Patient currently hypotensive, on Levophed 5 mcg 11.Yeast in Urine Fluconazole 200 mg IVPB x1 12.Hyperthyroidism TSH normal low @ 0.67 Continue Tapazole 5 mg po daily 13.Hx R Cephalic Vein Thrombosis Did not require anticoagulation stable 12.DIET Pt +PEG, was on Jevity at 40cc/hr on discharge, however patient has been on regular diet at [place]. Cont Jevity feed @40cc with Imodium. Resume reg diet once cuff able to be deflated. Physical and Occupational Therapy evaluation and treatments pending 13.VTE ppx Lovenox
[2016-09-28] MEDS: Clindamycin 600 MG in Sodium Chloride 0.9% 100 ML IVPB SCH ×3 (00:10→17:12)
[2016-09-28] MEDS: Albuterol 0.083% Inhal Sol (2.5 mg/3 mL) UD INH SCH ×4 (01:16→19:32)
[2016-09-28 05:01] LABS: HEMATOCRIT 29.6 % (34.0-47.0); MEAN CELL VOLUME 95.1 fl (81.0-99.0); MEAN CORPUSCULAR HEMOGLOBIN 30.3 pg (27.0-31.0); MEAN CORPUSCULAR HGB CONC 31.8 g/dL (33.0-37.0); RED CELL DISTRIBUTION WIDTH 16.6 % (11.5-14.5); WHITE BLOOD COUNT 16.5 K/uL (4.8-10.8)
[2016-09-28 05:17] LABS: BLOOD UREA NITROGEN 17 mg/dl (7-17); CALCIUM 7.1 mg/dL (8.4-10.2); CARBON DIOXIDE 26 mmol/L (22-30); CHLORIDE 104 mmol/L (98-107); GFR AFRICAN-AMERICAN > 60; GLUCOSE,RANDOM 175 mg/dL (65-105); POTASSIUM 3.1 MMOL/L (3.6-5.0); SODIUM 137 mmol/l (132-148)
[2016-09-28 05:51] LABS: ABG ALLEN TEST YES; ARTERIAL BLOOD GAS HCO3 26.6 mmol/L (21-28); ARTERIAL BLOOD GAS MODE CPAP; ARTERIAL BLOOD GAS O2 CAPACITY 13.6 mL/dL (16-24); ARTERIAL BLOOD GAS O2 CONTENT 13.4 ML/dL (15-23); ARTERIAL BLOOD GAS PH 7.44 (7.35-7.45); ARTERIAL BLOOD GAS PO2 75 mm/Hg (80-100); ARTERIAL BLOOD HGB O2 SAT 94.7 % (95.0-98.0); HHB 1.6 % (0.0-5.0); METHEMOGLOBIN 1.8 % (0.0-3.0)
[2016-09-28] MEDS ORDERED: Potassium Chloride 20 mEq/15 ml LIQ UD PO ONE (07:42)
[2016-09-28] MEDS: Nasal Spray(Ocean spray) NAS PRN (08:23)
[2016-09-28] MEDS: Sodium Chloride 0.9% 1,000 ML IV SCH (08:24)
[2016-09-28] MEDS: Famotidine 40 MG/5 ML PO SCH (08:24)
[2016-09-28] MEDS: methylPREDNISolone 30 MG in Sodium Chloride 0.9% 50 ML IVPB SCH ×2 (08:25→20:03)
[2016-09-28] MEDS: Enoxaparin 40 mg Syringe SC SCH (08:27)
[2016-09-28] MEDS: Lidocaine 5% Patch TD SCH (08:28)
[2016-09-28] MEDS: Tmp-Smz 200-40mg/5 ml Oral Sus(120 ml) PO SCH ×2 (08:28→20:13)
[2016-09-28] MEDS: Lactobacillus Acidophilus 500 MU Cap PO SCH ×2 (09:21→17:17)
[2016-09-28] MEDS: methIMAzole 5 MG TAB PO SCH (09:23)
[2016-09-28] MEDS: Hydrocerin CREAM TOP SCH ×2 (09:23→17:18)
--- NOTE | 2016-09-28 10:51 | CP.CCUPN ---
CCU Subjective - Physician Review Events Since Last Encounter (Free Text): 09/28/16 10:42 Patient is more alert today, no complaints. CCU Objective - Vital Signs / Intake & Output Vital Signs (Last 4 hours): Vital Signs Temp Pulse Resp BP Pulse Ox 09/28/16 10:00 90 20 91/60 L 99 09/28/16 09:45 94 H 20 104/60 100 09/28/16 09:00 93 H 21 93/47 L 100 09/28/16 08:19 97.7 F 93 H 13 113/57 L 100 09/28/16 07:40 91 H 16 105/45 L 100 09/28/16 07:00 88 14 113/57 L 100 09/28/16 06:43 89 15 112/57 L 99 Intake and Output (Last 8hrs): Intake & Output 09/27/16 09/28/16 09/28/16 22:59 06:59 14:59 Intake Total 1766.09 2159 200 Output Total 760 2410 Balance 1006.09 -251 200 Intake: IV 788.09 900 100 Intake, Piggyback 588 249 20 Oral 80 Tube Feeding 240 240 80 TPN/PPN 20 Lipid 20 Albumin 250 Free Water Flush 150 400 Output: Gastric Amount 10 10 Stomach 10 10 Urine 750 2400 Urethral (Kimble) 750 2400 Other: # Bowel Movements 1 2 - Physical Exam Head: Positive for: Atraumatic, Normocephalic Pupils: Positive for: PERRL Extroacular Muscles: Positive for: EOMI Mouth: Positive for: Moist Mucous Membranes Respiratory/Chest: Positive for: Clear to Auscultation Cardiovascular: Positive for: Regular Rate and Rhythm Abdomen: Positive for: Normal Bowel Sounds, Ostomy Tubes (PEG in place). Negative for: Tenderness, Distention Psychiatric: Positive for: Alert - Medications Active Medications: Active Medications Generic Name Dose Route Start Last Admin Trade Name Freq PRN Reason Stop Dose Admin Albuterol Sulfate 2.5 mg 09/27/16 14:00 09/28/16 08:38 Albuterol 0.083% Inhal Aby (2.5 Mg/3 Ml) Ud INH 2.5 mg RQ6 ANDREAS Administration Alprazolam 0.5 mg 09/25/16 16:29 09/28/16 08:23 Xanax PO 0.5 mg Q8 PRN Administration Agitation Anastrozole 1 mg 09/26/16 09:00 09/28/16 09:25 Arimidex 1 Mg Tab PO 1 mg DAILY ANDREAS Administration Diltiazem HCl 30 mg 09/27/16 17:00 09/28/16 00:12 Cardizem PO 30 mg Q8 ANDREAS Administration Enoxaparin Sodium 40 mg 09/26/16 09:00 09/28/16 08:27 Lovenox SC 40 mg DAILY ANDREAS Administration Protocol Famotidine 40 mg 09/26/16 09:00 09/28/16 08:24 Pepcid PO 40 mg DAILY ANDREAS Administration Furosemide 40 mg 09/26/16 09:00 09/28/16 08:27 Lasix IVP Not Given Q12 ANDREAS Gabapentin 600 mg 09/25/16 17:00 09/28/16 00:11 Neurontin PO 600 mg Q8 ANDREAS Administration Ceftazidime 2 gm/ Sodium 100 mls @ 200 mls/hr 09/26/16 17:00 09/28/16 08:25 Chloride IVPB 200 mls/hr Q8 ANDREAS Administration Linezolid 600 mg in 300 mls @ 300 mls/hr 09/26/16 21:00 09/27/16 20:00 Zyvox 600mg/300ml D5w IVPB 300 mls/hr Q12 ANDREAS Administration Methylprednisolone 30 mg/ 50 mls @ 100 mls/hr 09/27/16 21:00 09/28/16 08:25 Sodium Chloride IVPB 100 mls/hr Q12 ANDREAS Administration Clindamycin Phosphate 600 mg/ 104 mls @ 104 mls/hr 09/27/16 17:00 09/28/16 08 :25 Sodium Chloride IVPB 104 mls/hr Q8 ANDREAS Administration Lactobacillus Acidophilus 1 cap 09/25/16 17:00 09/28/16 09:21 Bacid Acidophilus PO 1 cap BID ANDREAS Administration Lidocaine 1 ea 09/25/16 16:30 09/28/16 08:28 Lidoderm TD Not Given DAILY ANDREAS Loperamide HCl 2 mg 09/26/16 18:14 Imodium 1mg/7.5ml Ud PO Q4 PRN Diarrhea Methimazole 5 mg 09/26/16 09:00 09/28/16 09:23 Tapazole PO 5 mg DAILY ANDREAS Administration Metoprolol Tartrate 6.25 mg 09/25/16 21:00 09/28/16 08:26 Lopressor PO 6.25 mg Q12 ANDREAS Administration Multi-Ingredient Cream 1 applic 09/25/16 17:00 09/28/16 09:23 Hydrocerin Cream TOP 1 applic BID ANDREAS Administration Sodium Chloride 2 sprays 09/26/16 12:15 09/28/16 08:[address] [place] Nasal [place] VON 2 spr Q4 PRN Administration Nasal congestion Spironolactone 25 mg 09/25/16 16:30 09/28/16 09:29 Aldactone PO 25 mg DAILY ANDREAS Administration Trimethoprim/Sulfamethoxazole 20 ml 09/25/16 21:00 09/28/16 08:28 Sulfatrim Pediatric Susp PO 20 ml Q12 ANDREAS Administration - Patient Studies Lab Studies: Microbiology Studies 09/25/16 19:57 MRSA Culture (Admit) - Final Naris MRSA NOT DETECTED 09/25/16 19:57 Blood Culture - Preliminary Blood-Thru Central Line NO GROWTH AFTER 48 HOURS 09/25/16 19:57 Urine Culture - Final Urine,Kimble No Growth (<1,000 CFU/ML) Lab Studies 09/28/16 09/28/16 09/28/16 Range/Units 04:59 04:20 04:20 WBC 16.5 H (4.8-10.8) K/uL RBC 3.11 L (3.80-5.20) Mil/uL Hgb 9.4 L (12.0-16.0) g/dL Hct 29.6 L (34.0-47.0) % MCV 95.1 (81.0-99.0) fl MCH 30.3 (27.0-31.0) pg MCHC 31.8 L (33.0-37.0) g/dL RDW 16.6 H (11.5-14.5) % Plt Count 224 (130-400) K/uL Neutrophils % (Manual) (42-75) % Lymphocytes % (Manual) (20-50) % Monocytes % (Manual) (0-10) % Platelet Estimate (NORMAL) Hypochromasia (manual) Anisocytosis (manual) Ovalocytes pCO2 39 (35-45) mm/Hg pO2 75 L (80-100) mm/Hg HCO3 26.6 (21-28) mmol/L ABG pH 7.44 (7.35-7.45) ABG Total CO2 27.7 (22-28) mmol/L ABG O2 Saturation 98.3 H (95-98) % ABG O2 Content 13.4 L (15-23) ML/dL ABG Base Excess 2.2 (-2.0-3.0) mmol/L ABG Hemoglobin 10.0 L (11.7-17.4) g/dL ABG Carboxyhemoglobin 2.0 H (0.5-1.5) % POC ABG HHb (Measured) 1.6 (0.0-5.0) % ABG Methemoglobin 1.8 (0.0-3.0) % ABG O2 Capacity 13.6 L (16-24) mL/dL Tawanda Test Yes A-a O2 Difference 161.0 mm/Hg Hgb O2 Saturation 94.7 L (95.0-98.0) % Vent Mode Cpap FiO2 40.0 % Pressure Support 10 CPAP 5 Sodium 137 (132-148) mmol/l Potassium 3.1 L (3.6-5.0) MMOL/L Chloride 104 (98-107) mmol/L Carbon Dioxide 26 (22-30) mmol/L Anion Gap 10 (10-20) BUN 17 (7-17) mg/dl Creatinine 0.6 L (0.7-1.2) mg/dL Est GFR ( Amer) > 60 Est GFR (Non-Af Amer) > 60 POC Glucose (mg/dL) (65-110) mg/dL Random Glucose 175 H (65-105) mg/dL Calcium 7.1 L (8.4-10.2) mg/dL 09/27/16 09/25/16 Range/Units 07:20 16:54 WBC (4.8-10.8) K/uL RBC (3.80-5.20) Mil/uL Hgb (12.0-16.0) g/dL Hct (34.0-47.0) % MCV (81.0-99.0) fl MCH (27.0-31.0) pg MCHC (33.0-37.0) g/dL RDW (11.5-14.5) % Plt Count (130-400) K/uL Neutrophils % (Manual) 95 H (42-75) % Lymphocytes % (Manual) 2 L (20-50) % Monocytes % (Manual) 3 (0-10) % Platelet Estimate Normal (NORMAL) Hypochromasia (manual) Slight Anisocytosis (manual) Slight Ovalocytes Slight pCO2 (35-45) mm/Hg pO2 (80-100) mm/Hg HCO3 (21-28) mmol/L ABG pH (7.35-7.45) ABG Total CO2 (22-28) mmol/L ABG O2 Saturation (95-98) % ABG O2 Content (15-23) ML/dL ABG Base Excess (-2.0-3.0) mmol/L ABG Hemoglobin (11.7-17.4) g/dL ABG Carboxyhemoglobin (0.5-1.5) % POC ABG HHb (Measured) (0.0-5.0) % ABG Methemoglobin (0.0-3.0) % ABG O2 Capacity (16-24) mL/dL Tawanda Test A-a O2 Difference mm/Hg Hgb O2 Saturation (95.0-98.0) % Vent Mode FiO2 % Pressure Support CPAP Sodium (132-148) mmol/l Potassium (3.6-5.0) MMOL/L Chloride (98-107) mmol/L Carbon Dioxide (22-30) mmol/L Anion Gap (10-20) BUN (7-17) mg/dl Creatinine (0.7-1.2) mg/dL Est GFR ( Amer) Est GFR (Non-Af Amer) POC Glucose (mg/dL) 213 H (65-110) mg/dL Random Glucose (65-105) mg/dL Calcium (8.4-10.2) mg/dL Laboratory Results - last 24 hr 09/25/16 09/27/16 09/28/16 16:54 07:20 04:20 WBC 16.5 H RBC 3.11 L Hgb 9.4 L Hct 29.6 L MCV 95.1 MCH 30.3 MCHC 31.8 L RDW 16.6 H Plt Count 224 Neutrophils % (Manual) 95 H Lymphocytes % (Manual) 2 L Monocytes % (Manual) 3 Platelet Estimate Normal Hypochromasia (manual) Slight Anisocytosis (manual) Slight Ovalocytes Slight pCO2 pO2 HCO3 ABG pH ABG Total CO2 ABG O2 Saturation ABG O2 Content ABG Base Excess ABG Hemoglobin ABG Carboxyhemoglobin POC ABG HHb (Measured) ABG Methemoglobin ABG O2 Capacity Tawanda Test A-a O2 Difference Hgb O2 Saturation Vent Mode FiO2 Pressure Support CPAP Sodium Potassium Chloride Carbon Dioxide Anion Gap BUN Creatinine Est GFR ( Amer) Est GFR (Non-Af Amer) POC Glucose (mg/dL) 213 H Random Glucose Calcium 09/28/16 09/28/16 04:20 04:59 WBC RBC Hgb Hct MCV MCH MCHC RDW Plt Count Neutrophils % (Manual) Lymphocytes % (Manual) Monocytes % (Manual) Platelet Estimate Hypochromasia (manual) Anisocytosis (manual) Ovalocytes pCO2 39 pO2 75 L HCO3 26.6 ABG pH 7.44 ABG Total CO2 27.7 ABG O2 Saturation 98.3 H ABG O2 Content 13.4 L ABG Base Excess 2.2 ABG Hemoglobin 10.0 L ABG Carboxyhemoglobin 2.0 H POC ABG HHb (Measured) 1.6 ABG Methemoglobin 1.8 ABG O2 Capacity 13.6 L Tawanda Test Yes A-a O2 Difference 161.0 Hgb O2 Saturation 94.7 L Vent Mode Cpap FiO2 40.0 Pressure Support 10 CPAP 5 Sodium 137 Potassium 3.1 L Chloride 104 Carbon Dioxide 26 Anion Gap 10 BUN 17 Creatinine 0.6 L Est GFR ( Amer) > 60 Est GFR (Non-Af Amer) > 60 POC Glucose (mg/dL) Random Glucose 175 H Calcium 7.1 L Fingerstick Blood Sugar Results: 284 Review of Systems - Review of Systems Review of Systems: all systems reviewed, no complaints. Critical Care Progress Note - Ventilator Checklist Head of Bed 30 Degrees: Yes Daily Sedation Vacation: Yes Daily Assessment of Readiness to Wean: Yes Daily Spontaneous Breathing Trial: Yes PUD Prophalyxis: Yes DVT Prophylaxis: Yes Assessment/Plan (1) Pneumonia Assessment and plan: 66 yo female PMH Chronic Respiratory Failure with Trach (placed 07/2016), s/p gastric tube, CHF (systolic+diastolic), COPD, bilateral metastatic breast CA to shoulder s/p chemo/rad 8 years ago (s/p humerus resection) with chronic lymphedema RUE, HTN, hyperthyroidism, tachycardia/SVT, R cephalic vein thrombosis, anxiety, brought in by EMS with severe acute respiratory distress. Neuro: Alert and following commands. Peripheral neuropathy continue Arimidex and gabapentin. Lidocaine patch. Pulm: Acute respiratory failure. COPD on Solu-Medrol 30 mg IV every 12h. Trach collar trials started. CV: Hemodynamically stable Hem: No acute issues Renal: No acute issues, urine output within normal limits, will monitor. Patient is in mildly positive findings status, we'll diuresis. Endo: Hypothyroidism continue Tapazole. GI: Patient is well eval today to see if patient can swallow around trach, restarted tube feeds in the meantime, Jevity@40. ID: Severe sepsis secondary to pneumonia, continue Zyvox, Bactrim, Fortaz and clindamycin. DVT proph - Lovenox GI proph - Pepcid kimble for strict I/O's during acute illness - d/c Code status - full code Crtical Care Time spent 35 minutes Multi-disciplinary rounds were performed with house staff, nursing, speech therapy, respiratory therapy, pharmacy and nutrition with integrated input from the primary team/attending and other consulting services. The documented time is cumulative and includes review of patient data/exams/labs/chart review and examination of the patient on rounds and throughout the day; time is exclusive of any procedures or teaching time. Current Visit: Yes Status: Acute Priority: High
[2016-09-28] MEDS: Linezolid 600 mg in D5W 300 ml 600 MG/300 ML BAG IVPB SCH ×2 (11:48→20:04)
[2016-09-28] MEDS: Loperamide 1MG/7.5ML UD PO PRN ×2 (11:48→19:23)
--- NOTE | 2016-09-28 11:50 | CP.PCM.PN ---
Subjective - Date & Time of Evaluation Date of Evaluation: 09/28/16 Time of Evaluation: 10:45 - Subjective Subjective: No fever OFF Ventilator Off Levophed Pt looks comfortable occ cough and SOB no CP no abd pain + soft stool x 2BM - gets this when with Jevity Objective - Vital Signs/Intake and Output Vital Signs (last 24 hours): Temp Pulse Resp BP Pulse Ox 97.7 F 90 20 91/60 L 99 09/28/16 08:19 09/28/16 10:00 09/28/16 10:00 09/28/16 10:00 09/28/16 10:00 Intake and Output: 09/28/16 09/28/16 06:59 18:59 Intake Total 3055.09 200 Output Total 2420 Balance 635.09 200 - Medications Medications: Current Medications Albuterol Sulfate (Albuterol 0.083% Inhal Aby (2.5 Mg/3 Ml) Ud) 2.5 mg INH RQ6 ANDREAS Last Admin: 09/28/16 08:38 Dose: 2.5 mg Alprazolam (Xanax) 0.75 mg PO Q8 PRN PRN Reason: Agitation Anastrozole (Arimidex 1 Mg Tab) 1 mg PO DAILY [facility] Last Admin: 09/28/16 09:25 Dose: 1 mg Diltiazem HCl (Cardizem) 30 mg PO Q8 ANDREAS Last Admin: 09/28/16 11:42 Dose: Not Given Enoxaparin Sodium (Lovenox) 40 mg SC DAILY ANDREAS PRN Reason: Protocol Last Admin: 09/28/16 08:27 Dose: 40 mg Famotidine (Pepcid) 40 mg PO DAILY [facility] Last Admin: 09/28/16 08:24 Dose: 40 mg Furosemide (Lasix) 40 mg IVP Q12 ANDREAS Last Admin: 09/28/16 08:27 Dose: Not Given Gabapentin (Neurontin) 600 mg PO Q8 [facility] Last Admin: 09/28/16 11:48 Dose: 600 mg Ceftazidime 2 gm/ Sodium (Chloride) 100 mls @ 200 mls/hr IVPB Q8 ANDREAS Last Admin: 09/28/16 08:25 Dose: 200 mls/hr Linezolid (Zyvox 600mg/300ml D5w) 600 mg in 300 mls @ 300 mls/hr IVPB Q12 ANDREAS Last Admin: 09/28/16 11:48 Dose: 300 mls/hr Methylprednisolone 30 mg/ (Sodium Chloride) 50 mls @ 100 mls/hr IVPB Q12 ANDREAS Last Admin: 09/28/16 08:25 Dose: 100 mls/hr Clindamycin Phosphate 600 mg/ (Sodium Chloride) 104 mls @ 104 mls/hr IVPB Q8 [facility] Last Admin: 09/28/16 08:25 Dose: 104 mls/hr Lactobacillus Acidophilus (Bacid Acidophilus) 1 cap PO BID [facility] Last Admin: 09/28/16 09:21 Dose: 1 cap Lidocaine (Lidoderm) 1 ea TD DAILY [facility] Last Admin: 09/28/16 08:28 Dose: Not Given Loperamide HCl (Imodium 1mg/7.5ml Ud) 2 mg PO Q4 PRN PRN Reason: Diarrhea Last Admin: 09/28/16 11:48 Dose: 2 mg Methimazole (Tapazole) 5 mg PO DAILY [facility] Last Admin: 09/28/16 09:23 Dose: 5 mg Metoprolol Tartrate (Lopressor) 6.25 mg PO Q12 [facility] Last Admin: 09/28/16 08:26 Dose: 6.25 mg Multi-Ingredient Cream (Hydrocerin Cream) 1 applic TOP BID [facility] Last Admin: 09/28/16 09:23 Dose: 1 applic Sodium Chloride ([place] Nasal [place]) 2 sprays VON Q4 PRN PRN Reason: Nasal congestion Last Admin: 09/28/16 08:23 Dose: 2 spr Spironolactone (Aldactone) 25 mg PO DAILY [facility] Last Admin: 09/28/16 09:29 Dose: 25 mg Trimethoprim/Sulfamethoxazole (Sulfatrim Pediatric Susp) 20 ml PO Q12 [facility] Last Admin: 09/28/16 08:28 Dose: 20 ml - Labs Labs: 09/28/16 04:20 09/28/16 04:20 PT 11.3 SECONDS (9.6-11.2) H 09/25/16 13:00 INR 1.09 (0.92-1.08) H 09/25/16 13:00 APTT 26.6 SECONDS (23.3-32.5) 09/25/16 13:00 - Constitutional Appears: Older Than Stated Age, Chronically Ill - Head Exam Head Exam: NORMAL INSPECTION, NORMOCEPHALIC - Eye Exam Eye Exam: EOMI, Normal appearance Pupil Exam: NORMAL ACCOMODATION - ENT Exam ENT Exam: Mucous Membranes Dry, Normal External Ear Exam - Neck Exam Neck Exam: Full ROM. absent: Meningismus - Respiratory Exam Respiratory Exam: Decreased Breath Sounds, Rales, Rhonchi - Cardiovascular Exam Cardiovascular Exam: REGULAR RHYTHM, +S1, +S2 Additional comments: right chest tunneled PICC - GI/Abdominal Exam GI & Abdominal Exam: Soft, Normal Bowel Sounds. absent: Tenderness Additional comments: + PEG - Extremities Exam Extremities Exam: Normal Capillary Refill, Pedal Edema. absent: Calf Tenderness Additional comments: right arm edema - Back Exam Back Exam: Full ROM. absent: CVA tenderness (L), CVA tenderness (R), paraspinal tenderness, vertebral tenderness - Neurological Exam Neurological Exam: Alert, Awake, CN II-XII Intact, Oriented x3 - Psychiatric Exam Psychiatric exam: Normal Affect, Normal Mood - Skin Skin Exam: Dry, Normal Color, Warm Assessment and Plan - Assessment and Plan (Free Text) Assessment: 66 y/o female PMH Chronic Respiratory Failure with Trach (placed 07/2016), s/p gastric tube, CHF (systolic+diastolic), COPD, bilateral metastatic breast CA to shoulder s/p chemo/rad 8 years ago (s/p humerus resection) with chronic lymphedema RUE, HTN, hyperthyroidism, tachycardia/SVT, R cephalic vein thrombosis, anxiety, brought in by EMS with severe acute respiratory distress associated with altered mental status/confusion from fdc. Airleak was present at time of arrival to ER, ABG showed hypercarbia and Trach was changed from uncuffed to cuffed trache by ER and connected to MV PRVC/ AC mode. Patient found to be tachycardic, tachypneic ,hypotensive , febrile Tmax 103, elevated WBC and CXR showed bilateral infiltrates. She was admitted in ICU in septic shock, started on IVF, pressors and IV antibiotics. Blood cx growing gram positive cocci in clusters. ID , pulmonary consulted At present AAOx3 , mental status improved to her baseline , [facility] - now on Trach collar. 1.Acute on Chronic Hypercapneic Respiratory Failure -- multifactorial secondary to COPD exacerbation ,HCAP ,pleural effusion and CHF exacerbation Off Ventialltor , now on Trach collar Changed to PS and tolerating well Pulmonary on consult following closely Continue Duonebs, Solumedrol , IV antibiotics 2. Septic shock patient was febrile, hypotensive ,tachypneic , tachycardic,with elevated WBC, with AMS,Pneumonia on CXR and positive blood cultures Blood cx positive for gram positive cocci in clusters and urine positive for yeast ID consulted Was started on pressors - now off levophed Continue Fortaz, Linezolid, Clindamycin. d/c Tunneled PICC on right chest ( placed in July ) discussed with Dr Harrison IR 3. Bacteremia Gram positive cocci in clusters Follow up repeat Blood cx Continue IV Zyvox d/c tunneld PICC line placed in July 4.Bilateral Small/ moderate pleural effusion CTA showed sm to mod bilateral pleural effusions Pulmonary consulted Continue current management 5. Acute on Chronic Decompensated Systolic and Diastolic Heart Failure With vascular congestion on admission that improved , BNP 7130 LAST ECHO 06/14/2016: Mild to moderate decreased LVEF 40-45%, RV moderately dilated, decreased RV function, Diastolic inflow pattern restrictive Daily weights and Regular diet. Continue Lopressor 6.25mg q12 and Spironolactone 25 mg po daily Monitor for fluid overload, Lasix as necessary 6. PE ruled out CTA neg for PE Dimer elevated in ER 4.9, CTA NEG for PE hx of R cephalic vein thrombosis 7.Elevated Troponin Most likely 2/2 cardiac strain due to prolonged sinus tachycardia Cardiology Consult with Dr. Manuel Luu 8.Sinus Tachycardia/Hx SVT Patient is on Verapamil 180 MG CR, currently hold off Cardizem drip Started on Cardizem PO and lopressor 9.Hx Bilateral Mastectomy, breast CA with chronic lymphedema RUE and peripheral neuropathy Continue Arimidex 1 mg po Daily Continue Gabapentin 600 mg po q8h Lidocaine patch 10.Hypertension Patient currently hypotensive 11.Yeast in Urine Fluconazole 200 mg IVPB x1 12.Hyperthyroidism TSH normal low @ 0.67 Continue Tapazole 5 mg po daily 13.Hx R Cephalic Vein Thrombosis Did not require anticoagulation stable 12.DIET Pt + PEG, was on Jevity at 40cc/hr on discharge, however patient has been on regular diet at ID. Cont Jevity feed @40cc with Imodium. Resume reg diet after Swallow eval by Speech Physical and Occupational Therapy evaluation and treatments pending 13.VTE ppx Lovenox
--- NOTE | 2016-09-28 11:56 | RAD ---
PROCEDURE: CHEST RADIOGRAPH, 1 VIEW HISTORY: intubated COMPARISON: Comparison chest dated 09/27/2016 FINDINGS: LUNGS: Re- demonstrated is in situ tracheostomy tube in good position. Right IJ MediPort with tip in the SVC unchanged. Presumed posttraumatic resumption deformity of the right humeral head and proximal humerus unchanged. There are metallic clips overlying the right axillary region as well. Patchy opacity in the right lung base with small effusion. More dense opacification left lung base likely representing some combination of atelectasis and or infiltrate and effusion as well. PLEURA: No pneumothorax or pleural fluid seen. CARDIOVASCULAR: . Heart size is unchanged OSSEOUS STRUCTURES: No significant abnormalities. VISUALIZED UPPER ABDOMEN: Normal. OTHER FINDINGS: None. IMPRESSION: Re- demonstrated is in situ tracheostomy tube in good position. Right IJ MediPort with tip in the SVC unchanged. Presumed posttraumatic resumption deformity of the right humeral head and proximal humerus unchanged. There are metallic clips overlying the right axillary region as well. Patchy opacity in the right lung base with small effusion. More dense opacification left lung base likely representing some combination of atelectasis and or infiltrate and effusion as well.
--- NOTE | 2016-09-28 14:51 | CP.PCM.PN ---
Subjective - Date & Time of Evaluation Date of Evaluation: 09/28/16 Time of Evaluation: 14:51 - Subjective Subjective: I D NOTE DISCUSSED C URVASHI ZIEGLER ,WILL HAVE PICC REMOVED CONTINUE SAME RX Objective - Vital Signs/Intake and Output Vital Signs (last 24 hours): Temp Pulse Resp BP Pulse Ox 97.7 F 90 18 88/60 L 100 09/28/16 12:00 09/28/16 12:00 09/28/16 12:00 09/28/16 12:00 09/28/16 12:00 Intake and Output: 09/28/16 09/28/16 06:59 18:59 Intake Total 3055.09 1430 Output Total 2420 Balance 635.09 1430 - Medications Medications: Current Medications Albuterol Sulfate (Albuterol 0.083% Inhal Aby (2.5 Mg/3 Ml) Ud) 2.5 mg INH RQ6 ANDREAS Last Admin: 09/28/16 13:28 Dose: 2.5 mg Alprazolam (Xanax) 0.75 mg PO Q8 PRN PRN Reason: Agitation Anastrozole (Arimidex 1 Mg Tab) 1 mg PO DAILY [facility] Last Admin: 09/28/16 09:25 Dose: 1 mg Diltiazem HCl (Cardizem) 30 mg PO Q8 [facility] Last Admin: 09/28/16 11:42 Dose: Not Given Enoxaparin Sodium (Lovenox) 40 mg SC DAILY ANDREAS PRN Reason: Protocol Last Admin: 09/28/16 08:27 Dose: 40 mg Famotidine (Pepcid) 40 mg PO DAILY [facility] Last Admin: 09/28/16 08:24 Dose: 40 mg Furosemide (Lasix) 40 mg IVP Q12 ANDREAS Last Admin: 09/28/16 08:27 Dose: Not Given Gabapentin (Neurontin) 600 mg PO Q8 ANDREAS Last Admin: 09/28/16 11:48 Dose: 600 mg Ceftazidime 2 gm/ Sodium (Chloride) 100 mls @ 200 mls/hr IVPB Q8 ANDREAS Last Admin: 09/28/16 08:25 Dose: 200 mls/hr Linezolid (Zyvox 600mg/300ml D5w) 600 mg in 300 mls @ 300 mls/hr IVPB Q12 ANDREAS Last Admin: 09/28/16 11:48 Dose: 300 mls/hr Methylprednisolone 30 mg/ (Sodium Chloride) 50 mls @ 100 mls/hr IVPB Q12 [facility] Last Admin: 09/28/16 08:25 Dose: 100 mls/hr Clindamycin Phosphate 600 mg/ (Sodium Chloride) 104 mls @ 104 mls/hr IVPB Q8 [facility] Last Admin: 09/28/16 08:25 Dose: 104 mls/hr Lactobacillus Acidophilus (Bacid Acidophilus) 1 cap PO BID [facility] Last Admin: 09/28/16 09:21 Dose: 1 cap Lidocaine (Lidoderm) 1 ea TD DAILY [facility] Last Admin: 09/28/16 08:28 Dose: Not Given Loperamide HCl (Imodium 1mg/7.5ml Ud) 2 mg PO Q4 PRN PRN Reason: Diarrhea Last Admin: 09/28/16 11:48 Dose: 2 mg Methimazole (Tapazole) 5 mg PO DAILY [facility] Last Admin: 09/28/16 09:23 Dose: 5 mg Metoprolol Tartrate (Lopressor) 6.25 mg PO Q12 [facility] Last Admin: 09/28/16 08:26 Dose: 6.25 mg Multi-Ingredient Cream (Hydrocerin Cream) 1 applic TOP BID [facility] Last Admin: 09/28/16 09:23 Dose: 1 applic Sodium Chloride ([place] Nasal [place]) 2 sprays VON Q4 PRN PRN Reason: Nasal congestion Last Admin: 09/28/16 08:23 Dose: 2 spr Spironolactone (Aldactone) 25 mg PO DAILY [facility] Last Admin: 09/28/16 09:29 Dose: 25 mg Trimethoprim/Sulfamethoxazole (Sulfatrim Pediatric Susp) 20 ml PO Q12 [facility] Last Admin: 09/28/16 08:28 Dose: 20 ml - Labs Labs: 09/28/16 04:20 09/28/16 04:20 PT 11.3 SECONDS (9.6-11.2) H 09/25/16 13:00 INR 1.09 (0.92-1.08) H 09/25/16 13:00 APTT 26.6 SECONDS (23.3-32.5) 09/25/16 13:00
[2016-09-29] MEDS: Clindamycin 600 MG in Sodium Chloride 0.9% 100 ML IVPB SCH ×3 (00:07→17:40)
[2016-09-29] MEDS: Albuterol 0.083% Inhal Sol (2.5 mg/3 mL) UD INH SCH ×2 (01:00→08:35)
[2016-09-29] MEDS: Sodium Chloride 0.9% 1,000 ML IV SCH (03:41)
[2016-09-29 05:29] LABS: BASO % 0.1 % (0.0-2.0); HEMATOCRIT 31.1 % (34.0-47.0); LYMPH # 0.3 K/uL (1.0-4.3); LYMPH % 2.7 % (20.0-40.0); MEAN CELL VOLUME 96.3 fl (81.0-99.0); MEAN CORPUSCULAR HEMOGLOBIN 30.6 pg (27.0-31.0); MEAN CORPUSCULAR HGB CONC 31.8 g/dL (33.0-37.0); MEAN PLATELET VOLUME 7.3 fl (7.2-11.7); MONO # 0.3 K/uL (0.0-0.8); MONO % 2.9 % (0.0-10.0); NEUT # 9.3 K/uL (1.8-7.0); NEUT % 94.3 % (50.0-75.0); NRBC % 0.5 % (0.0-0.0); PLATELET COUNT 214 K/uL (130-400); WHITE BLOOD COUNT 9.8 K/uL (4.8-10.8)
[2016-09-29 05:31] LABS: ALB/GLOB RATIO 1.2 (1.0-2.1); ALKALINE PHOSPHATASE 76 U/L (38-126); ALT/SGPT 207 U/L (9-52); AST/SGOT 60 U/L (14-36); BILIRUBIN,TOTAL 0.1 mg/dl (0.2-1.3); BLOOD UREA NITROGEN 12 mg/dl (7-17); CALCIUM 7.3 mg/dL (8.4-10.2); CARBON DIOXIDE 28 mmol/L (22-30); CHLORIDE 105 mmol/L (98-107); GFR AFRICAN-AMERICAN > 60; GLUCOSE,RANDOM 105 mg/dL (65-105); POTASSIUM 4.1 MMOL/L (3.6-5.0); SODIUM 139 mmol/l (132-148); TOTAL PROTEIN 5.2 G/DL (6.3-8.2)
--- NOTE | 2016-09-29 06:37 | PQF GENQUE ---
This form is a permanent part of the medical record 09/29/16 Dr. Olsen, Would you please clarify the possible source of the sepsis. Admitted in Septic shock with acute respiratory failure. Patient has a tracheostomy, PEG tube and central line from the longterm. Noted to have pneumonia and urine + for yeast. Documentation that the patient has a tunneled PICC in the right upper chest since July and a consult with IR has been ordered for removal. Clarification of your documentation is requested to better reflect the severity of illness and intensity of treatment of your patient. PHYSICIAN'S RESPONSE Based on your medical judgment of the clinical indicators outlined above please clarify the following: [] Practitioner response [x If unable to determine, please check the box, sign and date. Present On Admission (POA) Indicator: [] Present at the time of admission [] Not present at the time of admission [] Clinically Undetermined In responding to this query, please exercise your independent professional judgment. The fact that a question is asked does not imply that any particular answer is desired or expected. Thank you for your clarification on this documentation. If you have any questions please call:[phone] * Thank you, Myriam Burger RN [facility]
[2016-09-29 06:55] LABS: NEUTROPHIL 96 % (42-75); STOMATOCYTES SLIGHT; TOTAL CELLS COUNTED 100
[2016-09-29] MEDS ORDERED: Albuterol 0.083% Inhal Sol (2.5 mg/3 mL) UD INH PRN (08:26)
--- NOTE | 2016-09-29 08:31 | CP.PCM.CON ---
History of Present Illness - History of Present Illness History of Present Illness: Full Note Dictated Co2 toxicity with altered mental status Chr resp insufficiency due to chr cigarette use Ca Breast with metastatic disease Recent hospitalisation for osteomylitis of mandible Elevated troponin (?? due to transient hypotension/Sinus tachycardia, doubt [place]) Now haemodynamically stable Being weaned off of pressors Past Patient History - Infectious Disease Hx of Infectious Diseases: None - Tetanus Immunizations Tetanus Immunization: Unknown - Past Medical History & Family History Past Medical History?: Yes - Past Social History Smoking Status: Former Smoker Chewing Tobacco Use: No Cigar Use: No Alcohol: None Drugs: Denies Home Situation {Lives}: Senior Care - CARDIAC Hx Cardia Arrhythmia: Yes Hx Hypertension: Yes - PULMONARY Hx Asthma: Yes Hx Chronic Obstructive Pulmonary Disease (COPD): Yes Hx Pneumonia: Yes - NEUROLOGICAL Other/Comment: peripheral neuropathy right lower extremity. - HEENT Other/Comment: recent right buccal abscess with possible osteomyelitis of the mandible - RENAL Hx Chronic Kidney Disease: No - ENDOCRINE/METABOLIC Hx Hyperthyroidism: Yes (on methimazole) - HEMATOLOGICAL/ONCOLOGICAL Hx Anemia: Yes Hx Cancer: Yes (breast) Hx Human Immunodeficiency Virus (HIV): No Hx Metastesis: Yes (bone) - INTEGUMENTARY Hx Dermatological Problems: No - MUSCULOSKELETAL/RHEUMATOLOGICAL Hx Falls: No Other/Comment: Cervical as well as lumbar disc disease - GASTROINTESTINAL Hx Gall Bladder Disease: Yes Hx Gastroesophageal Reflux: Yes - GENITOURINARY/GYNECOLOGICAL Hx Genitourinary Disorders: No - PSYCHIATRIC Hx Psychophysiologic Disorder: No Hx Substance Use: No - SURGICAL HISTORY Hx Mastectomy: Yes (right in 1998; left in 2008) Hx Orthopedic Surgery: Yes (2003 rigtht shoulder prosthesis, removal of hardware 2013) Hx Tubal Ligation: Yes Other/Comment: shoulder and humerous replacement with joint space infection and eventual removal of hardware in right shoulder and chronic lymphedema of RUE, groin cyst removal, cervical spinal fusion 2007, lumbar spinal fusion 2007. - ANESTHESIA Hx Anesthesia: Yes Hx Anesthesia Reactions: No Hx Malignant Hyperthermia: No Meds Allergies/Adverse Reactions: Allergies Allergy/AdvReac Type Severity Reaction Status Date / Time paper tape Allergy RASH Uncoded 06/03/16 21:31 - Medications Medications: Current Medications Albuterol Sulfate (Albuterol 0.083% Inhal Aby (2.5 Mg/3 Ml) Ud) 2.5 mg INH RQ6 [facility] Last Admin: 09/29/16 01:00 Dose: 2.5 mg Alprazolam (Xanax) 0.75 mg PO Q8 PRN PRN Reason: Agitation Last Admin: 09/28/16 19:24 Dose: 0.75 mg Anastrozole (Arimidex 1 Mg Tab) 1 mg PO DAILY [facility] Last Admin: 09/28/16 09:25 Dose: 1 mg Diltiazem HCl (Cardizem) 30 mg PO Q12H [facility] Enoxaparin Sodium (Lovenox) 40 mg SC DAILY [facility] PRN Reason: Protocol Last Admin: 09/28/16 08:27 Dose: 40 mg Famotidine (Pepcid) 40 mg PO DAILY [facility] Last Admin: 09/28/16 08:24 Dose: 40 mg Gabapentin (Neurontin) 600 mg PO Q8 [facility] Last Admin: 09/29/16 00:07 Dose: 600 mg Ceftazidime 2 gm/ Sodium (Chloride) 100 mls @ 200 mls/hr IVPB Q8 [facility] Last Admin: 09/29/16 00:06 Dose: 200 mls/hr Linezolid (Zyvox 600mg/300ml D5w) 600 mg in 300 mls @ 300 mls/hr IVPB Q12 [facility] Last Admin: 09/28/16 20:04 Dose: 300 mls/hr Clindamycin Phosphate 600 mg/ (Sodium Chloride) 104 mls @ 104 mls/hr IVPB Q8 [facility] Last Admin: 09/29/16 00:07 Dose: 104 mls/hr Methylprednisolone 30 mg/ (Sodium Chloride) 50 mls @ 100 mls/hr IVPB DAILY [facility] Lactobacillus Acidophilus (Bacid Acidophilus) 1 cap PO BID [facility] Last Admin: 09/28/16 17:17 Dose: 1 cap Lidocaine (Lidoderm) 1 ea TD DAILY [facility] Last Admin: 09/28/16 08:28 Dose: Not Given Loperamide HCl (Imodium 1mg/7.5ml Ud) 2 mg PO Q4 PRN PRN Reason: Diarrhea Last Admin: 09/28/16 19:23 Dose: 2 mg Methimazole (Tapazole) 5 mg PO DAILY [facility] Last Admin: 09/28/16 09:23 Dose: 5 mg Metoprolol Tartrate (Lopressor) 6.25 mg PO Q12 [facility] Last Admin: 05/23/17 20:11 Dose: 6.25 mg Multi-Ingredient Cream (Hydrocerin Cream) 1 applic TOP BID [facility] Last Admin: 09/28/16 17:18 Dose: 1 applic Sodium Chloride ([place] Nasal [place]) 2 sprays VON Q4 PRN PRN Reason: Nasal congestion Last Admin: 09/28/16 08:23 Dose: 2 spr Trimethoprim/Sulfamethoxazole (Sulfatrim Pediatric Susp) 20 ml PO Q12 [facility] Last Admin: 09/28/16 20:13 Dose: 20 ml Results - Vital Signs Recent Vital Signs: Last Vital Signs Temp 97.7 F 09/29/16 07:39 Pulse 96 H 09/29/16 07:39 Resp 28 H 09/29/16 07:39 BP 105/65 09/29/16 07:39 Pulse Ox 99 09/29/16 07:39 - Labs Result Diagrams: 09/29/16 04:30 09/29/16 04:30 Labs: Laboratory Results - last 24 hr 09/29/16 09/29/16 04:30 04:30 WBC 9.8 RBC 3.23 L Hgb 9.9 L Hct 31.1 L MCV 96.3 MCH 30.6 MCHC 31.8 L RDW 17.0 H Plt Count 214 MPV 7.3 Neut % (Auto) 94.3 H Lymph % (Auto) 2.7 L [place] % (Auto) 2.9 Eos % (Auto) 0.0 Baso % (Auto) 0.1 Neut # 9.3 H Lymph # 0.3 L [place] # 0.3 Eos # 0.0 Baso # 0.0 Neutrophils % (Manual) 96 H Lymphocytes % (Manual) 3 L Monocytes % (Manual) 1 Platelet Estimate Normal Anisocytosis (manual) Slight Target Cells Moderate Stomatocytes Slight Sodium 139 Potassium 4.1 Chloride 105 Carbon Dioxide 28 Anion Gap 10 BUN 12 Creatinine 0.5 L Est GFR ( Amer) > 60 Est GFR (Non-Af Amer) > 60 Random Glucose 105 Calcium 7.3 L Total Bilirubin 0.1 L AST 60 H D ALT 207 H D Alkaline Phosphatase 76 Total Protein 5.2 L Albumin 2.8 L Globulin 2.4 Albumin/Globulin Ratio 1.2
--- NOTE | 2016-09-29 08:41 | CP.PCM.PN ---
Subjective - Date & Time of Evaluation Date of Evaluation: 09/29/16 Time of Evaluation: 08:35 - Subjective Subjective: Seen in ICU on M rounds. Has been on trach collar humidified oxygen since yesterday. States she feels slightly SOB now (chest tightness). No CXR done yet this morning. Remains afebrile with stable vital signs. Suctioned a small amount of florez, mucoid secretions. Respiratory recruitment +, no dullness to percussion. Breath sounds are very diminished, high pitched E wheezes noted bilaterally. Heart sounds are distant, rhythm is regular. Labs noted with resolution of the leukocytosis. Hemoglobin has gradually decreased to 9.9 and plts 214. Multiple sourced with Staph aureus. Stopped trimethoprim/sulfa. Reduce solumedrol to once daily. Aerosol therapy changed to Duoneb QID with Q4 PRN albuterol. Continue Clinda/Fortaz and Zyvox. Will review case with rn new graduate as well. Objective - Vital Signs/Intake and Output Vital Signs (last 24 hours): Temp Pulse Resp BP Pulse Ox 97.7 F 96 H 28 H 105/65 99 09/29/16 07:39 09/29/16 07:39 09/29/16 07:39 09/29/16 07:39 09/29/16 07:39 Intake and Output: 09/28/16 09/29/16 23:59 11:59 Intake Total 2490 1180 Output Total 2810 1700 Balance -320 -520 - Medications Medications: Current Medications Albuterol Sulfate (Albuterol 0.083% Inhal Aby (2.5 Mg/3 Ml) Ud) 2.5 mg INH RQ4 PRN PRN Reason: Shortness of Breath Albuterol/Ipratropium (Duoneb 3 Mg/0.5 Mg (3 Ml) Ud) 3 ml INH RQID [facility] Alprazolam (Xanax) 0.75 mg PO Q8 PRN PRN Reason: Agitation Last Admin: 09/28/16 19:24 Dose: 0.75 mg Anastrozole (Arimidex 1 Mg Tab) 1 mg PO DAILY [facility] Last Admin: 09/28/16 09:25 Dose: 1 mg Diltiazem HCl (Cardizem) 30 mg PO Q12H [facility] Enoxaparin Sodium (Lovenox) 40 mg SC DAILY [facility] PRN Reason: Protocol Last Admin: 09/28/16 08:27 Dose: 40 mg Famotidine (Pepcid) 40 mg PO DAILY [facility] Last Admin: 09/28/16 08:24 Dose: 40 mg Gabapentin (Neurontin) 600 mg PO Q8 [facility] Last Admin: 09/29/16 00:07 Dose: 600 mg Ceftazidime 2 gm/ Sodium (Chloride) 100 mls @ 200 mls/hr IVPB Q8 [facility] Last Admin: 09/29/16 00:06 Dose: 200 mls/hr Linezolid (Zyvox 600mg/300ml D5w) 600 mg in 300 mls @ 300 mls/hr IVPB Q12 [facility] Last Admin: 09/28/16 20:04 Dose: 300 mls/hr Clindamycin Phosphate 600 mg/ (Sodium Chloride) 104 mls @ 104 mls/hr IVPB Q8 [facility] Last Admin: 09/29/16 00:07 Dose: 104 mls/hr Methylprednisolone 30 mg/ (Sodium Chloride) 50 mls @ 100 mls/hr IVPB DAILY [facility] Lactobacillus Acidophilus (Bacid Acidophilus) 1 cap PO BID [facility] Last Admin: 09/28/16 17:17 Dose: 1 cap Lidocaine (Lidoderm) 1 ea TD DAILY [facility] Last Admin: 09/28/16 08:28 Dose: Not Given Loperamide HCl (Imodium 1mg/7.5ml Ud) 2 mg PO Q4 PRN PRN Reason: Diarrhea Last Admin: 09/28/16 19:23 Dose: 2 mg Methimazole (Tapazole) 5 mg PO DAILY [facility] Last Admin: 09/28/16 09:23 Dose: 5 mg Metoprolol Tartrate (Lopressor) 6.25 mg PO Q12 [facility] Last Admin: 09/28/16 20:11 Dose: 6.25 mg Multi-Ingredient Cream (Hydrocerin Cream) 1 applic TOP BID [facility] Last Admin: 09/28/16 17:18 Dose: 1 applic Sodium Chloride ([place] Nasal [place]) 2 sprays VON Q4 PRN PRN Reason: Nasal congestion Last Admin: 09/28/16 08:23 Dose: 2 spr - Labs Labs: 09/29/16 04:30 09/29/16 04:30 PT 11.3 SECONDS (9.6-11.2) H 09/25/16 13:00 INR 1.09 (0.92-1.08) H 09/25/16 13:00 APTT 26.6 SECONDS (23.3-32.5) 09/25/16 13:00 Assessment and Plan (1) Septic shock Status: Resolved (2) Pneumonia Status: Acute (3) Acute and chronic respiratory failure with hypercapnia Status: Chronic (4) Tachyarrhythmia Status: Resolved (5) Hx of breast cancer Status: Inactive (6) Hyperthyroidism Status: Chronic
--- NOTE | 2016-09-29 09:53 | CP.PCM.PN ---
Subjective - Date & Time of Evaluation Date of Evaluation: 09/29/16 Time of Evaluation: 10:30 - Subjective Subjective: Patient was seen and evaluated bedside. Awake,, alert oriented x 3. on Trache collar on FIO2 40 % saturating 100 % BP 105/65 , afebrile HR 96, off levophed drip No acute issues overnight. Peg in place with jevity feeding Gutierrez in place with I/O 4500/4510 last 12 hours Right upper ChEst tunnelled PICC line in place Objective - Vital Signs/Intake and Output Vital Signs (last 24 hours): Temp Pulse Resp BP Pulse Ox 97.7 F 96 H 28 H 105/65 99 09/29/16 07:39 09/29/16 07:39 09/29/16 07:39 09/29/16 07:39 09/29/16 07:39 Intake and Output: 09/29/16 09/29/16 06:59 18:59 Intake Total 2050 Output Total 3210 Balance -1160 - Medications Medications: Current Medications Albuterol Sulfate (Albuterol 0.083% Inhal Aby (2.5 Mg/3 Ml) Ud) 2.5 mg INH RQ4 PRN PRN Reason: Shortness of Breath Albuterol/Ipratropium (Duoneb 3 Mg/0.5 Mg (3 Ml) Ud) 3 ml INH RQID [facility] Alprazolam (Xanax) 0.75 mg PO Q8 PRN PRN Reason: Agitation Last Admin: 09/28/16 19:24 Dose: 0.75 mg Anastrozole (Arimidex 1 Mg Tab) 1 mg PO DAILY [facility] Last Admin: 09/28/16 09:25 Dose: 1 mg Diltiazem HCl (Cardizem) 30 mg PO Q12H [facility] Enoxaparin Sodium (Lovenox) 40 mg SC DAILY [facility] PRN Reason: Protocol Last Admin: 09/28/16 08:27 Dose: 40 mg Famotidine (Pepcid) 40 mg PO DAILY [facility] Last Admin: 09/28/16 08:24 Dose: 40 mg Fluticasone Propionate (Flonase) 2 spr VON DAILY [facility] Gabapentin (Neurontin) 600 mg PO Q8 [facility] Last Admin: 09/29/16 00:07 Dose: 600 mg Ceftazidime 2 gm/ Sodium (Chloride) 100 mls @ 200 mls/hr IVPB Q8 [facility] Last Admin: 09/29/16 00:06 Dose: 200 mls/hr Linezolid (Zyvox 600mg/300ml D5w) 600 mg in 300 mls @ 300 mls/hr IVPB Q12 [facility] Last Admin: 09/28/16 20:04 Dose: 300 mls/hr Clindamycin Phosphate 600 mg/ (Sodium Chloride) 104 mls @ 104 mls/hr IVPB Q8 [facility] Last Admin: 09/29/16 00:07 Dose: 104 mls/hr Methylprednisolone 30 mg/ (Sodium Chloride) 50 mls @ 100 mls/hr IVPB DAILY [facility] Lactobacillus Acidophilus (Bacid Acidophilus) 1 cap PO BID [facility] Last Admin: 09/28/16 17:17 Dose: 1 cap Lidocaine (Lidoderm) 1 ea TD DAILY [facility] Last Admin: 09/28/16 08:28 Dose: Not Given Loperamide HCl (Imodium 1mg/7.5ml Ud) 2 mg PO Q4 PRN PRN Reason: Diarrhea Last Admin: 09/28/16 19:23 Dose: 2 mg Methimazole (Tapazole) 5 mg PO DAILY [facility] Last Admin: 09/28/16 09:23 Dose: 5 mg Metoprolol Tartrate (Lopressor) 6.25 mg PO Q12 [facility] Last Admin: 09/28/16 20:11 Dose: 6.25 mg Multi-Ingredient Cream (Hydrocerin Cream) 1 applic TOP BID [facility] Last Admin: 09/28/16 17:18 Dose: 1 applic Sodium Chloride ([place] Nasal [place]) 2 sprays VON Q4 PRN PRN Reason: Nasal congestion Last Admin: 09/28/16 08:23 Dose: 2 spr - Labs Labs: 09/29/16 04:30 09/29/16 04:30 PT 11.3 SECONDS (9.6-11.2) H 09/25/16 13:00 INR 1.09 (0.92-1.08) H 09/25/16 13:00 APTT 26.6 SECONDS (23.3-32.5) 09/25/16 13:00 - Constitutional Appears: Non-toxic, No Acute Distress, Chronically Ill, Other (with trache in placve , non cuffed witH humidified FIO2 40 %) - Head Exam Head Exam: ATRAUMATIC, NORMAL INSPECTION, NORMOCEPHALIC - Eye Exam Eye Exam: EOMI, Normal appearance, PERRL Pupil Exam: NORMAL ACCOMODATION - ENT Exam ENT Exam: Mucous Membranes Dry, Normal Exam - Neck Exam Additional comments: trache to anterior neck , midline - Respiratory Exam Respiratory Exam: Clear to Ausculation Bilateral, Prolonged Expiratory Phase. absent: Wheezes, Respiratory Distress - Cardiovascular Exam Cardiovascular Exam: Tachycardia, +S1, +S2. absent: JVD - GI/Abdominal Exam GI & Abdominal Exam: Soft, Normal Bowel Sounds. absent: Distended, Guarding, Tenderness, Rebound Additional comments: peg in place - Rectal Exam Rectal Exam: Deferred - Extremities Exam Extremities Exam: Pedal Edema (1 + ) Additional comments: Right upper extremity chronic lymphedema bilateral lower extremity skin abrasions - Neurological Exam Neurological Exam: Alert Additional comments: right facial droop - Psychiatric Exam Psychiatric exam: Normal Affect - Skin Skin Exam: Dry, Pallor, Warm Assessment and Plan - Assessment and Plan (Free Text) Assessment: 66 y/o female PMH Chronic Respiratory Failure with Trach (placed 07/2016), s/p gastric tube, CHF (systolic+diastolic), COPD, bilateral metastatic breast CA to shoulder s/p chemo/rad 8 years ago (s/p humerus resection) with chronic lymphedema RUE, HTN, hyperthyroidism, tachycardia/SVT, R cephalic vein thrombosis, anxiety, brought in by EMS with severe acute respiratory distress associated with altered mental status/confusion from [facility]. Airleak was present at time of arrival to ER, ABG showed hypercarbia and Trach was changed from uncuffed to cuffed trache by ER and connected to MV PRVC/ AC mode. Patient found to be tachycardic, tachypneic ,hypotensive , febrile Tmax 103, elevated WBC and CXR showed bilateral infiltrates. She was admitted in ICU in septic shock, started on IVF, pressors and IV antibiotics. Blood cx growing Staph aureus. ID , pulmonary consulted At present AAOx3 , mental status improved to her baseline , off Levophed and off mech ventilator - now on Trach collar and saturating well 1.Acute on Chronic Hypercapneic Respiratory Failure -- multifactorial secondary to COPD exacerbation ,HCAP ,pleural effusion and CHF exacerbation Off Ventialltor , now on Trach collar Pulmonary on consult following closely. Plan to change trache collar to a smaller size Continue Duonebs,O2 FIo2 40 % , IV antibiotics tapered Solumedrol 30 mg IV daily 2. Septic shock patient was febrile, hypotensive ,tachypneic , tachycardic,with elevated WBC, with AMS,Pneumonia on CXR and positive blood cultures Now off Levophed Blood cx positive for gram positive cocci in clusters and urine positive for yeast. Wound cx positive for Staph aureus ID consulted Continue Fortaz, Linezolid, Clindamycin. removed Tunneled PICC on right chest ( placed in July ) and send tip for cultures 3. Bacteremia Gram positive cocci in clusters Follow up sensitivities, identification and repeta cu;ltures Continue IV Zyvox discontinued tunnelled PICC line that was placed in July 4.Bilateral Small/ moderate pleural effusion CTA showed sm to mod bilateral pleural effusions Pulmonary consulted Continue current management 5. Acute on Chronic Decompensated Systolic and Diastolic Heart Failure With vascular congestion on admission that improved , BNP 7130 LAST ECHO 06/14/2016: Mild to moderate decreased LVEF 40-45%, RV moderately dilated, decreased RV function, Diastolic inflow pattern restrictive Daily weights and Regular diet. Continue Lopressor 6.25mg q12 and Spironolactone 25 mg po daily Monitor for fluid overload, Lasix as necessary 6. PE ruled out CTA neg for PE Dimer elevated in ER 4.9, CTA NEG for PE hx of R cephalic vein thrombosis 7.Elevated Troponin Most likely 2/2 cardiac strain due to prolonged sinus tachycardia Cardiology Consult with Dr. Manuel Luu 8.Sinus Tachycardia/Hx SVT Patient was on Verapamil 180 MG CR-- currently on hold off Cardizem drip on Cardizem PO and lopressor . Monitor Bp closely since is on the lower side 9.Hx Bilateral Mastectomy, breast CA with chronic lymphedema RUE and peripheral neuropathy Continue Arimidex 1 mg po Daily Continue Gabapentin 600 mg po q8h Lidocaine patch 10.Hypertension Monitor closely due to episodes of hypotension 11.Yeast in Urine Fluconazole 200 mg IVPB x1 12.Hyperthyroidism TSH normal low @ 0.67 Continue Tapazole 5 mg po daily Check T3 T4 13.Hx R Cephalic Vein Thrombosis Did not require anticoagulation stable 12.DIET Pt + PEG, was on Jevity at 40cc/hr on discharge, however patient has been on regular diet at [facility]. Cont Jevity feed @40cc with Imodium. Resume reg diet after Swallow eval by Speech and trache is changed to fenestrated Physical and Occupational Therapy evaluation and treatments pending 13.VTE ppx Lovenox
[2016-09-29] MEDS: Lactobacillus Acidophilus 500 MU Cap PO SCH ×2 (10:28→17:45)
[2016-09-29] MEDS: Nasal Spray(Ocean spray) NAS PRN ×2 (10:29→18:43)
[2016-09-29] MEDS: Famotidine 40 MG/5 ML PO SCH (10:29)
[2016-09-29] MEDS: Loperamide 1MG/7.5ML UD PO PRN (10:31)
[2016-09-29] MEDS: methIMAzole 5 MG TAB PO SCH (10:32)
[2016-09-29] MEDS: Linezolid 600 mg in D5W 300 ml 600 MG/300 ML BAG IVPB SCH ×2 (10:33→20:09)
[2016-09-29] MEDS: Hydrocerin CREAM TOP SCH ×2 (10:38→17:43)
[2016-09-29] MEDS: Lidocaine 5% Patch TD SCH ×2 (11:27→14:06)
[2016-09-29] MEDS: Albuterol-Ipratrop 3 mg / 0.5 (3 ml) UD INH SCH ×3 (11:33→20:20)
--- NOTE | 2016-09-29 11:36 | CON ---
DATE: 09/29/2016 She is hospitalized under the hospitalist's care in room 434 of intensive care unit. This 66-year-old female was recently hospitalized for a prolonged period of time in June and of this year for a mandibular osteomyelitis which eventually required intervention and [facility] with a tracheostomy tube in place as well as a PEG tube in place. Came into the hospital with altered mental status, was found to have severe hypercapnia with acidosis and requi red prompt ventilation to reverse this effect, promptly resolving her altered mental status. Now, th e patient is fully alert, awake and coherent. She is off of a ventilator. She has been fed per oral ly for the last few weeks and the plans were to remove her PEG tube. From pulmonary point of view al so she was doing well and plans were to remove her tracheostomy tube. The patient has a prior histor y of severe chronic lung disease as a consequence of chronic cigarette use and has had bilateral mast ectomy for carcinoma of the breast with metastatic disease which was treated more than 6-7 years back . The patient is frail and chronically sick, has been virtually bed and chair bound for a number of months, but was doing well at rehab and was making good progress. PHYSICAL EXAMINATION: GENERAL: At this time of this examination, having been revived with volume replacement and a brief p eriod of pressure support, which is being weaned, the patient was quite alert and awake, comfortable. VITAL SIGNS: Afebrile with a heart rate of 84 beats per minute sinus rhythm and a blood pressure of 108/70 mmHg. NECK: Her jugular venous pressure was not elevated. A tracheostomy tube was still in place. A PEG tube was still in place. EXTREMITIES: Warm. Nailbeds are pink. No central or peripheral cyanosis was present. RESPIRATORY: Her respiratory rate was 20-22 breaths per minute. Her lungs had a few crackles at both bases. HEART: Sounds were pure. There was no murmur, no gallop. Her electrocardiogram showed sinus rhythm which was in the tachycardic range on admission and a subse quent electrocardiogram on 09/26 which showed the tachycardia had resolved, but in both electrocardiog issac, there was poor progression of R-wave, a pattern which was seen on earlier electrocardiograms of June and July. There were mostly negative QRS complexes in lead III and aVF, which were not pr esent on her earlier electrocardiograms of June and July. No vladimir Q-waves were seen in these l carol. Review of her earlier echocardiogram did reveal left ventricular wall motion abnormalities and a mildly depressed left ventricular systolic function. Lab data showed a mild rise in her BUN on arrival, which appears to be resolving. The creatinine lev el remained stable. The rest of her labs were noted. Troponins on arrival in the Emergency Room wer e within normal limits, which showed a single sample of spike, following which they were within janay l range. Again, a pattern of this kind does not support the diagnosis of an acute myocardial infarct ion where an elevated troponin would persist to be elevated for the next 10-14 days. The electrocard iogram also does not show a pattern of an acute myocardial infarction. IMPRESSION: The impression at this time is troponin elevation which could probably be due to a perio d of sinus tachycardia as well as a period of hypoperfusion, which required fluid replenishment and p ressure support briefly and a bump in her BUN level as well as chronic respiratory insufficiency with a transient hypercapnia, which has resolved, and breast malignancy with metastatic disease. The pat ient at this point is stable from hemodynamic point of view. Is being weaned off her pressure suppor t as well as weaned off her respirator and percutaneous endoscopic gastrostomy tube. I will obtain a n electrocardiogram to evaluate if these changes noted in lead III and aVF persist. She is stable fr om cardiovascular point of view. Celio Luu MD cc: [id number] TT: 09/29/2016 11:35:59 Confirmation # [id number] Dictation # [id number]
--- NOTE | 2016-09-29 11:44 | RAD ---
HISTORY: pleural effusion COMPARISON: Comparison chest dated 09/29/2016. FINDINGS: LUNGS: In situ tracheostomy tube and right IJ CVL unchanged. Re- demonstrated are bilateral effusions with patchy opacity right lower lung field that may represent some atelectasis. More dense opacity left lung base may represent some combination of atelectasis/ infiltrate as well as effusion. Significant underlying emphysema upper lobe predominance. Questionable mild venous congestion PLEURA: No significant pleural effusion identified, no pneumothorax apparent. CARDIOVASCULAR: Heart size unchanged. OSSEOUS STRUCTURES: Again noted is deformity of the right humeral head and proximal humerus unchanged VISUALIZED UPPER ABDOMEN: Normal. OTHER FINDINGS: None. IMPRESSION: In situ tracheostomy tube and right IJ CVL unchanged. Re- demonstrated are bilateral effusions with patchy opacity right lower lung field that may represent some atelectasis. More dense opacity left lung base may represent some combination of atelectasis/ infiltrate as well as effusion. Significant underlying emphysema upper lobe predominance. . Questionable mild venous congestion
[2016-09-29] MEDS: methylPREDNISolone 30 MG in Sodium Chloride 0.9% 50 ML IVPB SCH (11:51)
[2016-09-29] MEDS ORDERED: Lidocaine 1% Inj (20ml) ONE (13:07)
--- NOTE | 2016-09-29 13:15 | CP.CCUPN ---
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 Afebrile, BP 105/65, HR 96 in sinus, fluid balance over last 24H = +2.5 L. No new complaints offered. Has been weaned off vasopressors yesterday, remains on low dose PO Cardizem and Lopressor. ROS: as above, no other pertinent negs or positives on 10 system review. PMFSH: all nursing and historical notes reviewed, no new pertinent data relevant to current problems. No other distress noted: EXAM- HEENT: no icterus, pupils equal and reactive, prominent induration R cheek NECK: no visible JVD, supple, carotids equal upstroke bilat/no bruits, trach stoma intact, trach tube intact. CHEST: decreased BS bases, no wheezes audible. R upper chest PICC. Left mastectomy HEART: regular, distant, S1S2, no murmur audible, no rubs. ABD: soft, no increased distention, no focal tenderness, no HSM. BS hypoactive , EXT: + edema, RUE chronically edematous with lymphedema, no peripheral/ digital cyanosis, no calf tenderness or palpable cords, distal pulses intact and symmetrical NEURO: oriented x 3; no gross focal motor deficits SKIN: no rashes LABS: WBC= 9.8 HGB= 9.9 PLTs= 214K 7.44/39/75 yesterday Na= 139 K= 4.1 HCO3= 28 BUN/Cr= 12/0.5 BS= 105 CXR: bilateral basilar haziness. Assessment: 1. Acute hypercapneic hypoxemic Resp Failure, 2 Bronchitis and poor mobilization of secretions; h/o COPD with Emphysematous lung disease. 2. s/p PSVT 3. s/p Hypokalemia 4. Chronic Disease Anemia PLAN: 1. Check free T4 level, TSH was normal on 09/26/16. 2. If Free T4 levels are normal , ??switch to Verapamil over Cardizem for better rate control if BP tolerates. 3. Fortaz/Clinda/Zyvox as per ID, steroids on wean. 4. Possible trach tube change to smaller size. 5. PICC removal. 6. Gutierrez removal.
--- NOTE | 2016-09-29 13:40 | PCM.SURG1 ---
Surgeon's Initial Post Op Note - Surgeon's Notes Surgeon: Sreekanth Harrison MD Machine Binding Folder: None Type of Anesthesia: None Pre-Operative Diagnosis: Fevers, breast cancer, tunneled picc Operative Findings: Right IJV tunneled PICC Post-Operative Diagnosis: Fevers, breast cancer Operation Performed: Right IJV tunneled picc removal. Specimen/Specimens Removed: PICC Estimated Blood Loss: EBL {In ML}: 0 Blood Products Given: N/A Drains Used: No Drains Post-Op Condition: Fair Date of Surgery/Procedure: 09/29/16 Time of Surgery/Procedure: 13:35
[2016-09-29] MEDS: Enoxaparin 40 mg Syringe SC SCH (14:06)
[2016-09-30] MEDS: Clindamycin 600 MG in Sodium Chloride 0.9% 100 ML IVPB SCH ×3 (01:00→17:15)
[2016-09-30 05:30] LABS: HEMATOCRIT 33.1 % (34.0-47.0); MEAN CELL VOLUME 97.2 fl (81.0-99.0); MEAN CORPUSCULAR HEMOGLOBIN 30.7 pg (27.0-31.0); MEAN CORPUSCULAR HGB CONC 31.5 g/dL (33.0-37.0); RED CELL DISTRIBUTION WIDTH 16.9 % (11.5-14.5); WHITE BLOOD COUNT 8.5 K/uL (4.8-10.8)
[2016-09-30 05:32] LABS: BLOOD UREA NITROGEN 12 mg/dl (7-17); CALCIUM 8.2 mg/dL (8.4-10.2); CARBON DIOXIDE 31 mmol/L (22-30); CHLORIDE 102 mmol/L (98-107); GFR AFRICAN-AMERICAN > 60; GLUCOSE,RANDOM 85 mg/dL (65-105); POTASSIUM 4.3 MMOL/L (3.6-5.0); SODIUM 139 mmol/l (132-148)
[2016-09-30] MEDS: Albuterol-Ipratrop 3 mg / 0.5 (3 ml) UD INH SCH ×4 (08:18→20:30)
--- NOTE | 2016-09-30 08:31 | CP.PCM.PN ---
Subjective - Date & Time of Evaluation Date of Evaluation: 09/30/16 Time of Evaluation: 08:15 - Subjective Subjective: Alert, awake, afebrile Had her PICC line removed yesterday ABGs look stable on an FiO2 of 40% Sinus rhythm at 80 BPM BP 110/70 mm Hg No signs of CHF Labs show BUN/Creatinin to be stable (?? AST/ALT continue to be abnormal, since 07/15/2016??) Yesterday's EKG shows no evidence of Q waves in AVF Pt stable from cardiac point of view Objective - Vital Signs/Intake and Output Vital Signs (last 24 hours): Temp Pulse Resp BP Pulse Ox 97.6 F 92 H 18 104/69 100 09/30/16 04:00 09/30/16 06:00 09/30/16 06:00 09/30/16 06:00 09/30/16 06:00 Intake and Output: 09/30/16 09/30/16 06:59 18:59 Intake Total 1310 Output Total 2000 Balance -690 - Medications Medications: Current Medications Albuterol Sulfate (Albuterol 0.083% Inhal Aby (2.5 Mg/3 Ml) Ud) 2.5 mg INH RQ4 PRN PRN Reason: Shortness of Breath Albuterol/Ipratropium (Duoneb 3 Mg/0.5 Mg (3 Ml) Ud) 3 ml INH RQID [facility] Last Admin: 09/30/16 08:18 Dose: 3 ml Alprazolam (Xanax) 0.75 mg PO Q8 PRN PRN Reason: Agitation Last Admin: 09/29/16 22:05 Dose: 0.75 mg Anastrozole (Arimidex 1 Mg Tab) 1 mg PO DAILY [facility] Last Admin: 09/29/16 10:32 Dose: 1 mg Diltiazem HCl (Cardizem) 30 mg PO Q12H [facility] Last Admin: 09/29/16 20:12 Dose: 30 mg Enoxaparin Sodium (Lovenox) 40 mg SC DAILY [facility] PRN Reason: Protocol Last Admin: 09/29/16 14:06 Dose: 40 mg Famotidine (Pepcid) 40 mg PO DAILY [facility] Last Admin: 09/29/16 10:29 Dose: 40 mg Fluticasone Propionate (Flonase) 2 spr VON DAILY [facility] Last Admin: 09/29/16 10:29 Dose: 2 spr Gabapentin (Neurontin) 600 mg PO Q8 [facility] Last Admin: 09/30/16 01:45 Dose: 600 mg Ceftazidime 2 gm/ Sodium (Chloride) 100 mls @ 200 mls/hr IVPB Q8 [facility] Last Admin: 09/30/16 01:00 Dose: 200 mls/hr Linezolid (Zyvox 600mg/300ml D5w) 600 mg in 300 mls @ 300 mls/hr IVPB Q12 [facility] Last Admin: 09/29/16 20:09 Dose: 300 mls/hr Clindamycin Phosphate 600 mg/ (Sodium Chloride) 104 mls @ 104 mls/hr IVPB Q8 [facility] Last Admin: 09/30/16 01:00 Dose: 104 mls/hr Methylprednisolone 30 mg/ (Sodium Chloride) 50 mls @ 100 mls/hr IVPB DAILY [facility] Last Admin: 09/29/16 11:51 Dose: 100 mls/hr Lactobacillus Acidophilus (Bacid Acidophilus) 1 cap PO BID [facility] Last Admin: 09/29/16 17:45 Dose: 1 cap Lidocaine (Lidoderm) 1 ea TD DAILY [facility] Last Admin: 09/29/16 14:06 Dose: 1 ea Loperamide HCl (Imodium 1mg/7.5ml Ud) 2 mg PO Q4 PRN PRN Reason: Diarrhea Last Admin: 09/29/16 10:31 Dose: 2 mg Methimazole (Tapazole) 5 mg PO DAILY [facility] Last Admin: 09/29/16 10:32 Dose: 5 mg Metoprolol Tartrate (Lopressor) 6.25 mg PO Q12 [facility] Last Admin: 09/29/16 20:10 Dose: 6.25 mg Multi-Ingredient Cream (Hydrocerin Cream) 1 applic TOP BID [facility] Last Admin: 09/29/16 17:43 Dose: 1 applic Sodium Chloride ([place] Nasal [place]) 2 sprays VON Q4 PRN PRN Reason: Nasal congestion Last Admin: 09/29/16 18:43 Dose: 2 spr - Labs Labs: 09/30/16 04:40 09/30/16 04:40 PT 11.3 SECONDS (9.6-11.2) H 09/25/16 13:00 INR 1.09 (0.92-1.08) H 09/25/16 13:00 APTT 26.6 SECONDS (23.3-32.5) 09/25/16 13:00
--- NOTE | 2016-09-30 08:41 | CP.PCM.PN ---
Subjective - Date & Time of Evaluation Date of Evaluation: 09/30/16 Time of Evaluation: 08:40 - Subjective Subjective: Patient seen and examined bedside.Lying n bed in NAD. Denies any CP , SOB.On Trache collar with FIO2 40% saturating 100 % ,afebrile, sinus rhythm on monitor HR 101,BP stable 113/69 No acute issues overnight Gutierrez in place with good urine outpt Peg in place with Jevity feeding @ 40 ml/hr PICC line removed yesterday WBC 8.5 Hgb 10.6 Objective - Vital Signs/Intake and Output Vital Signs (last 24 hours): Temp Pulse Resp BP Pulse Ox 97.7 F 99 H 26 H 113/69 98 09/30/16 08:00 09/30/16 08:00 09/30/16 08:00 09/30/16 08:00 09/30/16 08:00 Intake and Output: 09/30/16 09/30/16 06:59 18:59 Intake Total 1310 Output Total 2000 Balance -690 - Medications Medications: Current Medications Albuterol Sulfate (Albuterol 0.083% Inhal Aby (2.5 Mg/3 Ml) Ud) 2.5 mg INH RQ4 PRN PRN Reason: Shortness of Breath Albuterol/Ipratropium (Duoneb 3 Mg/0.5 Mg (3 Ml) Ud) 3 ml INH RQID [facility] Last Admin: 09/30/16 08:18 Dose: 3 ml Alprazolam (Xanax) 0.75 mg PO Q8 PRN PRN Reason: Agitation Last Admin: 09/29/16 22:05 Dose: 0.75 mg Anastrozole (Arimidex 1 Mg Tab) 1 mg PO DAILY [facility] Last Admin: 09/29/16 10:32 Dose: 1 mg Diltiazem HCl (Cardizem) 30 mg PO Q12H [facility] Last Admin: 09/29/16 20:12 Dose: 30 mg Enoxaparin Sodium (Lovenox) 40 mg SC DAILY [facility] PRN Reason: Protocol Last Admin: 09/29/16 14:06 Dose: 40 mg Famotidine (Pepcid) 40 mg PO DAILY [facility] Last Admin: 09/29/16 10:29 Dose: 40 mg Fluticasone Propionate (Flonase) 2 spr VON DAILY [facility] Last Admin: 09/29/16 10:29 Dose: 2 spr Gabapentin (Neurontin) 600 mg PO Q8 [facility] Last Admin: 09/30/16 01:45 Dose: 600 mg Ceftazidime 2 gm/ Sodium (Chloride) 100 mls @ 200 mls/hr IVPB Q8 [facility] Last Admin: 09/30/16 01:00 Dose: 200 mls/hr Linezolid (Zyvox 600mg/300ml D5w) 600 mg in 300 mls @ 300 mls/hr IVPB Q12 [facility] Last Admin: 09/29/16 20:09 Dose: 300 mls/hr Clindamycin Phosphate 600 mg/ (Sodium Chloride) 104 mls @ 104 mls/hr IVPB Q8 [facility] Last Admin: 09/30/16 01:00 Dose: 104 mls/hr Methylprednisolone 30 mg/ (Sodium Chloride) 50 mls @ 100 mls/hr IVPB DAILY [facility] Last Admin: 09/29/16 11:51 Dose: 100 mls/hr Lactobacillus Acidophilus (Bacid Acidophilus) 1 cap PO BID [facility] Last Admin: 09/29/16 17:45 Dose: 1 cap Lidocaine (Lidoderm) 1 ea TD DAILY [facility] Last Admin: 09/29/16 14:06 Dose: 1 ea Loperamide HCl (Imodium 1mg/7.5ml Ud) 2 mg PO Q4 PRN PRN Reason: Diarrhea Last Admin: 09/29/16 10:31 Dose: 2 mg Methimazole (Tapazole) 5 mg PO DAILY [facility] Last Admin: 09/29/16 10:32 Dose: 5 mg Metoprolol Tartrate (Lopressor) 6.25 mg PO Q12 [facility] Last Admin: 09/29/16 20:10 Dose: 6.25 mg Multi-Ingredient Cream (Hydrocerin Cream) 1 applic TOP BID [facility] Last Admin: 09/29/16 17:43 Dose: 1 applic Sodium Chloride ([place] Nasal [place]) 2 sprays VON Q4 PRN PRN Reason: Nasal congestion Last Admin: 09/29/16 18:43 Dose: 2 spr - Labs Labs: 09/30/16 04:40 09/30/16 04:40 PT 11.3 SECONDS (9.6-11.2) H 09/25/16 13:00 INR 1.09 (0.92-1.08) H 09/25/16 13:00 APTT 26.6 SECONDS (23.3-32.5) 09/25/16 13:00 - Constitutional Appears: Non-toxic, No Acute Distress, Chronically Ill, Other (on trache collar ) - Head Exam Head Exam: ATRAUMATIC, NORMAL INSPECTION, NORMOCEPHALIC - Eye Exam Eye Exam: EOMI, Normal appearance, PERRL Pupil Exam: NORMAL ACCOMODATION - ENT Exam ENT Exam: Mucous Membranes Moist, Normal Exam - Neck Exam Neck Exam: Normal Inspection Additional comments: trache to anterior neck - Respiratory Exam Respiratory Exam: Decreased Breath Sounds (bibasilar), Clear to Ausculation Bilateral, NORMAL BREATHING PATTERN. absent: Rhonchi, Wheezes - Cardiovascular Exam Cardiovascular Exam: REGULAR RHYTHM, +S1, +S2. absent: JVD - GI/Abdominal Exam GI & Abdominal Exam: Soft, Normal Bowel Sounds. absent: Distended, Guarding, Tenderness, Rebound Additional comments: peg in place - Rectal Exam Rectal Exam: Deferred - Extremities Exam Extremities Exam: Pedal Edema (1 + to lowe extremities, lymphedema to RUE ) Additional comments: multiple abrasions to lower extremities below knees and echymotic areas to upper extremities - Neurological Exam Neurological Exam: Alert, Awake, Oriented x3 Additional comments: right facial droop - Psychiatric Exam Psychiatric exam: Normal Affect - Skin Skin Exam: Dry, Warm Assessment and Plan - Assessment and Plan (Free Text) Assessment: 66 y/o female PMH Chronic Respiratory Failure with Trach (placed 07/2016), s/p gastric tube, CHF (systolic+diastolic), COPD, bilateral metastatic breast CA to shoulder s/p chemo/rad 8 years ago (s/p humerus resection) with chronic lymphedema RUE, HTN, hyperthyroidism, tachycardia/SVT, R cephalic vein thrombosis, anxiety, brought in by EMS with severe acute respiratory distress associated with altered mental status/confusion from halfway. Airleak was present at time of arrival to ER, ABG showed hypercarbia and Trach was changed from uncuffed to cuffed trache by ER and connected to MV PRVC/ AC mode. Patient found to be tachycardic, tachypneic ,hypotensive , febrile Tmax 103, elevated WBC and CXR showed bilateral infiltrates. She was admitted in ICU in septic shock, started on IVF, pressors and IV antibiotics. Blood cx growing Staph aureus. ID , pulmonary consulted At present AAOx3 , mental status improved to her baseline , off Levophed and off mech ventilator - now on Trach collar and saturating well 1.Acute on Chronic Hypercapneic Respiratory Failure -- multifactorial secondary to COPD exacerbation ,HCAP ,pleural effusion and CHF exacerbation Off Ventialltor , now on Trach collar Pulmonary on consult following closely. Plan to change trache collar to a smaller size and fenestrated today Continue Duonebs,O2 FIo2 40 % , IV antibiotics on Solumedrol 30 mg IV daily 2. Septic shock patient was febrile, hypotensive ,tachypneic , tachycardic,with elevated WBC, with AMS,Pneumonia on CXR and positive blood cultures Now off Levophed Blood cx positive for Staph aureus . Wound cx positive for Staph aureus ID consulted Continue Fortaz, Linezolid, Clindamycin. removed Tunneled PICC on right chest ( placed in July ) Repeat blood culture with no growth so far 3. Bacteremia Staph aureus positive Continue IV Zyvox discontinued tunnelled PICC line that was placed in July 4.Bilateral Small/ moderate pleural effusion CTA showed sm to mod bilateral pleural effusions Pulmonary consulted Continue current management 5. Acute on Chronic Decompensated Systolic and Diastolic Heart Failure With vascular congestion on admission that improved , BNP 7130 LAST ECHO 06/14/2016: Mild to moderate decreased LVEF 40-45%, RV moderately dilated, decreased RV function, Diastolic inflow pattern restrictive Daily weights and Regular diet. Continue Lopressor 6.25mg q12 and Spironolactone 25 mg po daily Monitor for fluid overload, Lasix as necessary 6. PE ruled out CTA neg for PE Dimer elevated in ER 4.9, CTA NEG for PE hx of R cephalic vein thrombosis 7.Elevated Troponin Most likely 2/2 cardiac strain due to prolonged sinus tachycardia Cardiology Consult with Dr. Manuel Luu 8.Sinus Tachycardia/Hx SVT Patient was on Verapamil 180 MG CR-- currently on hold off Cardizem drip on Cardizem PO and lopressor . Monitor Bp closely since is on the lower side 9.Hx Bilateral Mastectomy, breast CA with chronic lymphedema RUE and peripheral neuropathy Continue Arimidex 1 mg po Daily Continue Gabapentin 600 mg po q8h Lidocaine patch 10.Hypertension Monitor closely due to episodes of hypotension 11.Hyperthyroidism TSH normal low @ 0.67 Continue Tapazole 5 mg po daily Check T3 T4 12.Hx R Cephalic Vein Thrombosis Did not require anticoagulation stable 13.DIET Pt + PEG, was on Jevity at 40cc/hr on discharge, however patient has been on regular diet at [place]. Cont Jevity feed @40cc with Imodium. Resume reg diet after trache is changed to fenestrated . GI consulted for removal of peg tube after diet restarted Physical and Occupational Therapy evaluation 13.VTE ppx Lovenox
[2016-09-30] MEDS ORDERED: Chlorhexidine Gluconate 1 APPL/PKT TP ONE (08:55)
--- NOTE | 2016-09-30 09:59 | CP.PCM.PN ---
Subjective - Date & Time of Evaluation Date of Evaluation: 09/30/16 Time of Evaluation: 09:56 - Subjective Subjective: Interim events reviewed. Awake and cooperative. Remains on trach collar with #[address]. SpO2 remains >95%, pulse <100BPM. CXR appears to be slightly more congested with bilateral effusions. Suctioned small amounts of blood tinged mucous. WBC 8.5, Hgb 10.4, Plts 225. Dependant edema ++, no cyanosis. Continues to drain serous fluid from RUE. Scattered ecchymoses over chest wall. No dullness on percussion o9f anterior chest wall. No subcutaneous emphysema. Tracheostomy stoma cleaned, new #6 fenestrated, cuffed tube inserted. Patient respiration slightly labored when capped tube. Small quantity of fresh blood suctioned after trach tube was changed. Breath sounds are present in both lungs, sonorous rhonchi bilaterally. No audible wheezes appreciated. Heart sounds are distant, regular rhythm. Trach left UNcapped with O2 via collar. Will replace with a cuffless #6 tube tomorrow. Start aldactone 25MG once daily. Change diltiazem BID to verapamil TID today. Continue metoprolol 6.25MG BID. Begin oral feedings. Objective - Vital Signs/Intake and Output Vital Signs (last 24 hours): Temp Pulse Resp BP Pulse Ox 97.7 F 99 H 26 H 113/69 98 09/30/16 08:00 09/30/16 08:00 09/30/16 08:00 09/30/16 08:00 09/30/16 08:00 Intake and Output: 09/29/16 09/30/16 23:59 11:59 Intake Total 1420 670 Output Total 900 2000 Balance 520 -1330 - Medications Medications: Current Medications Albuterol Sulfate (Albuterol 0.083% Inhal Aby (2.5 Mg/3 Ml) Ud) 2.5 mg INH RQ4 PRN PRN Reason: Shortness of Breath Albuterol/Ipratropium (Duoneb 3 Mg/0.5 Mg (3 Ml) Ud) 3 ml INH RQID [facility] Last Admin: 09/30/16 08:18 Dose: 3 ml Alprazolam (Xanax) 0.75 mg PO Q8 PRN PRN Reason: Agitation Last Admin: 09/29/16 22:05 Dose: 0.75 mg Anastrozole (Arimidex 1 Mg Tab) 1 mg PO DAILY [facility] Last Admin: 09/29/16 10:32 Dose: 1 mg Enoxaparin Sodium (Lovenox) 40 mg SC DAILY [facility] PRN Reason: Protocol Last Admin: 09/29/16 14:06 Dose: 40 mg Famotidine (Pepcid) 40 mg PO DAILY [facility] Last Admin: 09/29/16 10:29 Dose: 40 mg Fluticasone Propionate (Flonase) 2 spr VON DAILY [facility] Last Admin: 09/29/16 10:29 Dose: 2 spr Gabapentin (Neurontin) 600 mg PO Q8 [facility] Last Admin: 09/30/16 01:45 Dose: 600 mg Ceftazidime 2 gm/ Sodium (Chloride) 100 mls @ 200 mls/hr IVPB Q8 [facility] Last Admin: 09/30/16 01:00 Dose: 200 mls/hr Linezolid (Zyvox 600mg/300ml D5w) 600 mg in 300 mls @ 300 mls/hr IVPB Q12 [facility] Last Admin: 09/29/16 20:09 Dose: 300 mls/hr Clindamycin Phosphate 600 mg/ (Sodium Chloride) 104 mls @ 104 mls/hr IVPB Q8 [facility] Last Admin: 09/30/16 01:00 Dose: 104 mls/hr Methylprednisolone 30 mg/ (Sodium Chloride) 50 mls @ 100 mls/hr IVPB DAILY [facility] Last Admin: 09/29/16 11:51 Dose: 100 mls/hr Lactobacillus Acidophilus (Bacid Acidophilus) 1 cap PO BID [facility] Last Admin: 09/29/16 17:45 Dose: 1 cap Lidocaine (Lidoderm) 1 ea TD DAILY [facility] Last Admin: 09/29/16 14:06 Dose: 1 ea Loperamide HCl (Imodium 1mg/7.5ml Ud) 2 mg PO Q4 PRN PRN Reason: Diarrhea Last Admin: 09/29/16 10:31 Dose: 2 mg Methimazole (Tapazole) 5 mg PO DAILY [facility] Last Admin: 09/29/16 10:32 Dose: 5 mg Metoprolol Tartrate (Lopressor) 6.25 mg PO Q12 [facility] Last Admin: 09/29/16 20:10 Dose: 6.25 mg Multi-Ingredient Cream (Hydrocerin Cream) 1 applic TOP BID [facility] Last Admin: 09/29/16 17:43 Dose: 1 applic Spironolactone (Aldactone) 25 mg PO DAILY [facility] Verapamil HCl ([place] Tab) 40 mg PO TID [facility] - Labs Labs: 09/30/16 04:40 09/30/16 04:40 PT 11.3 SECONDS (9.6-11.2) H 09/25/16 13:00 INR 1.09 (0.92-1.08) H 09/25/16 13:00 APTT 26.6 SECONDS (23.3-32.5) 09/25/16 13:00 Assessment and Plan (1) Septic shock Status: Resolved (2) Pneumonia Status: Acute (3) Acute and chronic respiratory failure with hypercapnia Status: Chronic (4) Tachyarrhythmia Status: Resolved (5) Hx of breast cancer Status: Inactive (6) Hyperthyroidism Status: Chronic
[2016-09-30] MEDS: Lactobacillus Acidophilus 500 MU Cap PO SCH ×2 (11:03→17:10)
[2016-09-30] MEDS: Hydrocerin CREAM TOP SCH ×2 (11:07→17:17)
[2016-09-30] MEDS: methylPREDNISolone 30 MG in Sodium Chloride 0.9% 50 ML IVPB SCH (11:09)
[2016-09-30] MEDS: Linezolid 600 mg in D5W 300 ml 600 MG/300 ML BAG IVPB SCH ×2 (11:27→21:00)
[2016-09-30] MEDS: Enoxaparin 40 mg Syringe SC SCH (13:00)
[2016-09-30] MEDS: methIMAzole 5 MG TAB PO SCH (13:00)
[2016-09-30] MEDS: Loperamide 1MG/7.5ML UD PO PRN ×2 (13:00→17:37)
--- NOTE | 2016-09-30 13:30 | RAD ---
PROCEDURE: CHEST RADIOGRAPH, 1 VIEW HISTORY: Pneumonia/ om trache collar COMPARISON: 09/29/2016 FINDINGS: LUNGS: Bibasilar infiltrates. PLEURA: Bibasilar effusions. CARDIOVASCULAR: Normal. OSSEOUS STRUCTURES: No significant abnormalities. VISUALIZED UPPER ABDOMEN: Normal. OTHER FINDINGS: Tracheostomy in place. IMPRESSION: Bibasilar infiltrates and effusions suggestive of CHF. No significant interval change.
--- NOTE | 2016-09-30 15:36 | VASCULAR ---
PROCEDURE: Date of procedure: 09/29/2016 Procedure: 1 Removal of right IJ tunneled catheter Medications: None HISTORY: Breast cancer, poor venous access, tunneled right IJ PICC, infection TECHNIQUE: Following informed consent and procedure time-out, the patient was placed supine on the interventional table. The existing tunneled right IJ vein catheter and surrounding skin were prepped and draped in the usual sterile fashion. Spot fluoroscopic image showed a right IJ catheter in place. The catheter was removed in its entirety with gentle traction. Light pressure was applied to the venotomy site and tunnel tract until hemostasis was achieved. A dressing was applied. IMPRESSION: Removal of right IJ vein tunneled catheter.
--- NOTE | 2016-09-30 16:18 | CP.CCUPN ---
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 Also, stated she felt tired from breathing. She is currently on 40% trach collar and had her trach tube changed this AM, Trach stoma, and Trach tube appears intact. She does not appear overtly agitated, but she did ask for her Xanax dose and was given just 40 minutes earlier prior to this current encounter. Other vitals stable and she does not appear tachypneic, afebrile, no fever spikes lasrt 24H ROS: as above, no other pertinent negs or positives on 10 system review. PMFSH: all nursing and historical notes reviewed, no new pertinent data relevant to current problems. No other distress noted: EXAM- HEENT: no icterus, pupils equal and reactive NECK: no visible JVD, supple, carotids equal upstroke bilat/no bruits, trach stoma intact, trach tube intact. CHEST: decreased BS bases, no wheezes audible. Left mastectomy HEART: regular, distant, S1S2, no murmur audible, no rubs. ABD: soft, no increased distention, no focal tenderness, no HSM. BS hypoactive , EXT: + edema, RUE chronically edematous with lymphedema, no peripheral/ digital cyanosis, no calf tenderness or palpable cords, distal pulses intact and symmetrical NEURO: oriented x 3; no gross focal motor deficits SKIN: no rashes LABS: WBC= 8.5 HGB= 10.4 PLTs= 229K Na= 139 K= 4.3 HCO3= 31 BUN/Cr= 12/0.7 BS= 85 CXR: bilateral basilar haziness, R horizontal fissure prominent today Assessment: 1. Acute hypercapneic hypoxemic Resp Failure, 2 Bronchitis and poor mobilization of secretions; h/o COPD with Emphysematous lung disease. 2. s/p PSVT 3. s/p Hypokalemia 4. Chronic Disease Anemia PLAN: 1. Return to MV: will start with CPAP PS and follow for tolerance. 2. Verapamil restarted. Will Stop Cardizem. 3. Hold on Swallow eval or barium swallow study until trach tube changed to cuffless type. 4. Lasix prn today if BP tolerates changeover to Verapamil.
[2016-09-30] MEDS: Lidocaine 5% Patch TD SCH (17:20)
[2016-10-01] MEDS: Clindamycin 600 MG in Sodium Chloride 0.9% 100 ML IVPB SCH ×3 (00:08→17:01)
[2016-10-01 05:23] LABS: HEMATOCRIT 34.8 % (34.0-47.0); MEAN CELL VOLUME 95.1 fl (81.0-99.0); MEAN CORPUSCULAR HEMOGLOBIN 30.8 pg (27.0-31.0); MEAN CORPUSCULAR HGB CONC 32.4 g/dL (33.0-37.0); RED CELL DISTRIBUTION WIDTH 16.8 % (11.5-14.5); WHITE BLOOD COUNT 9.5 K/uL (4.8-10.8)
[2016-10-01 05:32] LABS: ALKALINE PHOSPHATASE 74 U/L (38-126); ALT/SGPT 111 U/L (9-52); AST/SGOT 23 U/L (14-36); BILIRUBIN,TOTAL 0.3 mg/dl (0.2-1.3); BLOOD UREA NITROGEN 12 mg/dl (7-17); CARBON DIOXIDE 37 mmol/L (22-30); CHLORIDE 95 mmol/L (98-107); GFR AFRICAN-AMERICAN > 60; GLUCOSE,RANDOM 70 mg/dL (65-105); POTASSIUM 3.9 MMOL/L (3.6-5.0); SODIUM 138 mmol/l (132-148)
[2016-10-01 05:39] LABS: TOTAL PROTEIN 5.3 G/DL (6.3-8.2)
[2016-10-01 05:48] LABS: ABG ALLEN TEST YES; ARTERIAL BLOOD GAS MODE CPAP/PSV; ARTERIAL BLOOD GAS O2 CAPACITY 15.6 mL/dL (16-24); ARTERIAL BLOOD GAS O2 CONTENT 15.4 ML/dL (15-23); ARTERIAL BLOOD GAS PH 7.49 (7.35-7.45); ARTERIAL BLOOD GAS PO2 101 mm/Hg (80-100); ARTERIAL BLOOD HGB O2 SAT 95.3 % (95.0-98.0); ATERIAL BLOOD GAS PEEP 8; CARBOXYHEMOGLOBIN 1.9 % (0.5-1.5); METHEMOGLOBIN 1.8 % (0.0-3.0)
[2016-10-01] MEDS: Albuterol-Ipratrop 3 mg / 0.5 (3 ml) UD INH SCH ×4 (08:22→19:02)
--- NOTE | 2016-10-01 08:57 | CP.PCM.PN ---
Subjective - Date & Time of Evaluation Date of Evaluation: 10/01/16 Time of Evaluation: 08:56 - Subjective Subjective: Seen on morning rounds in ICU. 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 Had a restful night on CPAP/PS ventilation. Vital signs have been stable, remains afebrile. Suctioned moderate amount of thick mucoid secretions this morning.. Today's CXR reviewed, bibasal densities noted, maybe sl less effusions. Mild hypochloremic metabolic alkalosis. + dependant edema, no cyanosis. Awake and cooperative. Feels rested. No dullness anterior chest wall. Breath sounds present bilaterally, decreased, more posteriorly. No audible wheezing, scattered rhonchi bilatrerally. Will continue in the present mode for the present time. Standard #6 cuffless trach tube requested at bedside. Will change trach and apply [place] valve. Continue Fortaz/Clinda/Zyvox. Still on 30MG daily solumedrol. Objective - Vital Signs/Intake and Output Vital Signs (last 24 hours): Temp Pulse Resp BP Pulse Ox 98.4 F 99 H 20 122/95 H 100 10/01/16 08:00 10/01/16 08:00 10/01/16 08:00 10/01/16 08:00 10/01/16 08:00 Intake and Output: 09/30/16 10/01/16 23:59 11:59 Intake Total 1280 670 Output Total 900 1250 Balance 380 -580 - Medications Medications: Current Medications Albuterol Sulfate (Albuterol 0.083% Inhal Aby (2.5 Mg/3 Ml) Ud) 2.5 mg INH RQ4 PRN PRN Reason: Shortness of Breath Albuterol/Ipratropium (Duoneb 3 Mg/0.5 Mg (3 Ml) Ud) 3 ml INH RQID [facility]RE[facility] Last Admin: 10/01/16 08:22 Dose: 3 ml Alprazolam (Xanax) 0.75 mg PO Q8 PRN PRN Reason: Agitation Last Admin: 09/30/16 23:56 Dose: 0.75 mg Anastrozole (Arimidex 1 Mg Tab) 1 mg PO DAILY [facility] Last Admin: 09/30/16 17:09 Dose: 1 mg Enoxaparin Sodium (Lovenox) 40 mg SC DAILY [facility] PRN Reason: Protocol Last Admin: 09/30/16 13:00 Dose: 40 mg Famotidine (Pepcid) 40 mg PO DAILY [facility] Last Admin: 09/30/16 13:00 Dose: 40 mg Fluticasone Propionate (Flonase) 2 spr VON DAILY [facility] Last Admin: 09/30/16 11:05 Dose: 2 spr Gabapentin (Neurontin) 600 mg PO Q8 [facility] Last Admin: 10/01/16 00:09 Dose: 600 mg Ceftazidime 2 gm/ Sodium (Chloride) 100 mls @ 200 mls/hr IVPB Q8 [facility] Last Admin: 10/01/16 00:07 Dose: 200 mls/hr Linezolid (Zyvox 600mg/300ml D5w) 600 mg in 300 mls @ 300 mls/hr IVPB Q12 [facility] Last Admin: 09/30/16 21:00 Dose: 300 mls/hr Clindamycin Phosphate 600 mg/ (Sodium Chloride) 104 mls @ 104 mls/hr IVPB Q8 [facility] Last Admin: 10/01/16 00:08 Dose: 104 mls/hr Methylprednisolone 30 mg/ (Sodium Chloride) 50 mls @ 100 mls/hr IVPB DAILY [facility] Last Admin: 09/30/16 11:09 Dose: 100 mls/hr Lactobacillus Acidophilus (Bacid Acidophilus) 1 cap PO BID [facility] Last Admin: 09/30/16 17:10 Dose: 1 cap Lidocaine (Lidoderm) 1 ea TD DAILY [facility] Last Admin: 09/30/16 17:20 Dose: Not Given Loperamide HCl (Imodium 1mg/7.5ml Ud) 2 mg PO Q4 PRN PRN Reason: Diarrhea Last Admin: 09/30/16 17:37 Dose: 2 mg Methimazole (Tapazole) 5 mg PO DAILY [facility] Last Admin: 09/30/16 13:00 Dose: 5 mg Metoprolol Tartrate (Lopressor) 6.25 mg PO Q12 [facility] Last Admin: 09/30/16 21:35 Dose: 6.25 mg Multi-Ingredient Cream (Hydrocerin Cream) 1 applic TOP BID [facility] Last Admin: 09/30/16 17:17 Dose: 1 applic Spironolactone (Aldactone) 25 mg PO DAILY [facility] Last Admin: 09/30/16 11:05 Dose: 25 mg Verapamil HCl (Calan Tab) 40 mg PO TID [facility] Last Admin: 09/30/16 17:14 Dose: 40 mg - Labs Labs: 10/01/16 05:00 10/01/16 05:00 PT 11.3 SECONDS (9.6-11.2) H 09/25/16 13:00 INR 1.09 (0.92-1.08) H 09/25/16 13:00 APTT 26.6 SECONDS (23.3-32.5) 09/25/16 13:00 Assessment and Plan (1) Septic shock Status: Resolved (2) Pneumonia Status: Acute (3) Acute and chronic respiratory failure with hypercapnia Status: Chronic (4) Tachyarrhythmia Status: Resolved (5) Hx of breast cancer Status: Inactive (6) Hyperthyroidism Status: Chronic
--- NOTE | 2016-10-01 09:05 | CP.PCM.PN ---
Subjective - Date & Time of Evaluation Date of Evaluation: 10/01/16 Time of Evaluation: 08:30 - Subjective Subjective: No fever Remains on CPAP Resp therapist at bedside - suctioned some thick phlegm Pt denies CP no abd pain + diarrhea Objective - Vital Signs/Intake and Output Vital Signs (last 24 hours): Temp Pulse Resp BP Pulse Ox 98.4 F 99 H 20 122/95 H 100 10/01/16 08:00 10/01/16 08:00 10/01/16 08:00 10/01/16 08:00 10/01/16 08:00 Intake and Output: 10/01/16 10/01/16 06:59 18:59 Intake Total 1320 Output Total 1250 Balance 70 - Medications Medications: Current Medications Albuterol Sulfate (Albuterol 0.083% Inhal Aby (2.5 Mg/3 Ml) Ud) 2.5 mg INH RQ4 PRN PRN Reason: Shortness of Breath Albuterol/Ipratropium (Duoneb 3 Mg/0.5 Mg (3 Ml) Ud) 3 ml INH RQID [facility] Last Admin: 10/01/16 08:22 Dose: 3 ml Alprazolam (Xanax) 0.75 mg PO Q8 PRN PRN Reason: Agitation Last Admin: 09/30/16 23:56 Dose: 0.75 mg Anastrozole (Arimidex 1 Mg Tab) 1 mg PO DAILY [facility] Last Admin: 09/30/16 17:09 Dose: 1 mg Enoxaparin Sodium (Lovenox) 40 mg SC DAILY [facility] PRN Reason: Protocol Last Admin: 09/30/16 13:00 Dose: 40 mg Famotidine (Pepcid) 40 mg PO DAILY [facility] Last Admin: 09/30/16 13:00 Dose: 40 mg Fluticasone Propionate (Flonase) 2 spr VON DAILY [facility] Last Admin: 09/30/16 11:05 Dose: 2 spr Gabapentin (Neurontin) 600 mg PO Q8 [facility] Last Admin: 10/01/16 00:09 Dose: 600 mg Ceftazidime 2 gm/ Sodium (Chloride) 100 mls @ 200 mls/hr IVPB Q8 [facility] Last Admin: 10/01/16 00:07 Dose: 200 mls/hr Linezolid (Zyvox 600mg/300ml D5w) 600 mg in 300 mls @ 300 mls/hr IVPB Q12 [facility] Last Admin: 09/30/16 21:00 Dose: 300 mls/hr Clindamycin Phosphate 600 mg/ (Sodium Chloride) 104 mls @ 104 mls/hr IVPB Q8 [facility] Last Admin: 10/01/16 00:08 Dose: 104 mls/hr Methylprednisolone 30 mg/ (Sodium Chloride) 50 mls @ 100 mls/hr IVPB DAILY [facility] Last Admin: 09/30/16 11:09 Dose: 100 mls/hr Lactobacillus Acidophilus (Bacid Acidophilus) 1 cap PO BID [facility] Last Admin: 09/30/16 17:10 Dose: 1 cap Lidocaine (Lidoderm) 1 ea TD DAILY [facility] Last Admin: 09/30/16 17:20 Dose: Not Given Loperamide HCl (Imodium 1mg/7.5ml Ud) 2 mg PO Q4 PRN PRN Reason: Diarrhea Last Admin: 09/30/16 17:37 Dose: 2 mg Methimazole (Tapazole) 5 mg PO DAILY [facility] Last Admin: 09/30/16 13:00 Dose: 5 mg Metoprolol Tartrate (Lopressor) 6.25 mg PO Q12 [facility] Last Admin: 09/30/16 21:35 Dose: 6.25 mg Multi-Ingredient Cream (Hydrocerin Cream) 1 applic TOP BID [facility] Last Admin: 09/30/16 17:17 Dose: 1 applic Spironolactone (Aldactone) 25 mg PO DAILY [facility] Last Admin: 09/30/16 11:05 Dose: 25 mg Verapamil HCl (Calan Tab) 40 mg PO TID [facility] Last Admin: 09/30/16 17:14 Dose: 40 mg - Labs Labs: 10/01/16 05:00 10/01/16 05:00 PT 11.3 SECONDS (9.6-11.2) H 09/25/16 13:00 INR 1.09 (0.92-1.08) H 09/25/16 13:00 APTT 26.6 SECONDS (23.3-32.5) 09/25/16 13:00 - Constitutional Appears: Older Than Stated Age, Chronically Ill - Head Exam Head Exam: NORMAL INSPECTION, NORMOCEPHALIC - Eye Exam Eye Exam: EOMI, Normal appearance Pupil Exam: NORMAL ACCOMODATION - ENT Exam ENT Exam: Mucous Membranes Dry, Normal External Ear Exam - Neck Exam Neck Exam: Full ROM. absent: Meningismus + Trach - Respiratory Exam Respiratory Exam: Decreased Breath Sounds, Rales, Rhonchi On CPAP mode - Cardiovascular Exam Cardiovascular Exam: REGULAR RHYTHM, +S1, +S2, sl tachycardic at 102 - GI/Abdominal Exam GI & Abdominal Exam: Soft, Normal Bowel Sounds. absent: Tenderness Additional comments: + PEG - Extremities Exam Extremities Exam: Normal Capillary Refill, Pedal Edema. absent: Calf Tenderness Additional comments: right arm edema - Back Exam Back Exam: Full ROM. absent: CVA tenderness (L), CVA tenderness (R), paraspinal tenderness, vertebral tenderness - Neurological Exam Neurological Exam: Alert, Awake, CN II-XII Intact, Oriented x3 - Psychiatric Exam Psychiatric exam: Normal Affect, Normal Mood - Skin Skin Exam: Dry, Normal Color, Warm Assessment and Plan - Assessment and Plan (Free Text) Assessment: 66 y/o female PMH Chronic Respiratory Failure with Trach (placed 07/2016), s/p gastric tube placement , CHF (systolic+diastolic), COPD, bilateral metastatic breast CA to shoulder s/p chemo/rad 8 years ago (s/p humerus resection) with chronic lymphedema RUE, HTN, hyperthyroidism, tachycardia/SVT, R cephalic vein thrombosis, anxiety, brought in by EMS with severe acute respiratory distress associated with altered mental status/confusion from fpc. Airleak was present at time of arrival to ER, ABG showed hypercarbia and Trach was changed from uncuffed to cuffed by ER and connected to MV PRVC/ AC mode. Patient found to be tachycardic, tachypneic ,hypotensive , febrile Tmax 103, elevated WBC and CXR showed bilateral infiltrates. She was admitted in ICU in septic shock, started on IVF, pressors and IV antibiotics. Blood cx grew Staph aureus. ID , pulmonary consulted At present pt if on CPAP mode , off pressors. 1.Acute on Chronic Hypercapneic Respiratory Failure -- multifactorial secondary to COPD exacerbation ,HCAP ,pleural effusion and CHF exacerbation On CPAP mode Pulmonary on consult following closely. Plan to change Trach to Uncuffed this afternoon Continue Duonebs, IV antibiotics on Solumedrol 30 mg IV daily 2. Septic shock patient was febrile, hypotensive ,tachypneic , tachycardic,with elevated WBC, with AMS,Pneumonia on CXR and positive blood cultures Now off Levophed Blood cx positive for Staph aureus . Wound cx positive for Staph aureus ID consulted Continue Fortaz, Linezolid, Clindamycin. removed Tunneled PICC on right chest ( placed in July ) Repeat blood culture with no growth so far 3. Bacteremia Staph aureus positive Continue IV Zyvox discontinued tunnelled PICC line that was placed in July 4.Bilateral Small/ moderate pleural effusion CTA showed sm to mod bilateral pleural effusions Pulmonary consulted Continue current management 5. Acute on Chronic Decompensated Systolic and Diastolic Heart Failure With vascular congestion on admission that improved , BNP 7130 LAST ECHO 06/14/2016: Mild to moderate decreased LVEF 40-45%, RV moderately dilated, decreased RV function, Diastolic inflow pattern restrictive Daily weights and Regular diet. Continue Lopressor 6.25mg q12 and Spironolactone 25 mg po daily Monitor for fluid overload, Lasix as necessary 6. PE ruled out CTA neg for PE Dimer elevated in ER 4.9, CTA NEG for PE hx of R cephalic vein thrombosis 7.Elevated Troponin Most likely 2/2 cardiac strain due to prolonged sinus tachycardia Cardiology Consult with Dr. Manuel Luu 8.Sinus Tachycardia/Hx SVT Patient was on Verapamil 180 MG CR-- currently on hold off Cardizem drip on Cardizem PO and lopressor . Monitor Bp closely since is on the lower side 9.Hx Bilateral Mastectomy, breast CA with chronic lymphedema RUE and peripheral neuropathy Continue Arimidex 1 mg po Daily Continue Gabapentin 600 mg po q8h Lidocaine patch 10.Hypertension Monitor closely due to episodes of hypotension 11.Hyperthyroidism TSH normal low @ 0.67 Continue Tapazole 5 mg po daily Check T3 T4 12.Hx R Cephalic Vein Thrombosis Did not require anticoagulation stable 13.DIET Pt + PEG, was on Jevity at 40cc/hr on discharge, however patient has been on regular diet at [place]. Cont Jevity feed @40cc with Imodium. Resume reg diet after trache is changed to fenestrated . GI consulted for removal of peg tube after diet restarted Physical and Occupational Therapy evaluation 13.VTE ppx Lovenox
[2016-10-01] MEDS: Lactobacillus Acidophilus 500 MU Cap PO SCH ×2 (09:06→17:00)
[2016-10-01] MEDS: Hydrocerin CREAM TOP SCH ×2 (09:08→17:02)
[2016-10-01] MEDS: Lidocaine 5% Patch TD SCH (09:09)
[2016-10-01] MEDS: Enoxaparin 40 mg Syringe SC SCH (09:12)
[2016-10-01] MEDS: methIMAzole 5 MG TAB PO SCH (09:13)
[2016-10-01] MEDS: methylPREDNISolone 30 MG in Sodium Chloride 0.9% 50 ML IVPB SCH (09:13)
[2016-10-01] MEDS: Linezolid 600 mg in D5W 300 ml 600 MG/300 ML BAG IVPB SCH ×2 (09:18→20:24)
--- NOTE | 2016-10-01 13:02 | RAD ---
HISTORY: f/u CHF COMPARISON: Comparison is made to 09/30/2016 FINDINGS: LUNGS: Interval mild improvement in the lungs since the previous exam. The tracheostomy tube seen in place P PLEURA: Bilateral pleural effusions are again seen. CARDIOVASCULAR: Normal. OSSEOUS STRUCTURES: Deformity and possible partial resection of the right humerus is again noted. VISUALIZED UPPER ABDOMEN: Normal. OTHER FINDINGS: None. IMPRESSION: Interval mild improvement in the lungs since the previous study.
--- NOTE | 2016-10-01 13:33 | CP.CCUPN ---
CCU Subjective - Physician Review Subjective (Free Text): COMMUNITY SUPPORT ASSOCIATE PROGRESS NOTE Patient examined, interim events reviewed: Easily arousable from sleep, tolerated CPAP PS from yesterday afternoon. Discussed with Pulm, will keep patient on this mode of support till trach tube gets changed again to a regular non-cuffed fenestrated tube. Afebrile, director of infection control fever spikes, Bp 110/65, HR 89, RR 23, SPO2 100% on 40% oxygen. 24H I/O's= essentially even. ROS: as above, no other pertinent negs or positives on 10 system review. PMFSH: all nursing and historical notes reviewed, no new pertinent data relevant to current problems. No other distress noted: EXAM- HEENT: no icterus, pupils equal and reactive NECK: no visible JVD, supple, carotids equal upstroke bilat/no bruits, trach stoma intact, trach tube intact. CHEST: decreased BS bases, no wheezes audible. Left mastectomy HEART: regular, distant, S1S2, no murmur audible, no rubs. ABD: soft, no increased distention, no focal tenderness, no HSM. BS hypoactive , EXT: + edema, RUE chronically edematous with lymphedema, no peripheral/ digital cyanosis, no calf tenderness or palpable cords, distal pulses intact and symmetrical NEURO: oriented x 3; no gross focal motor deficits SKIN: no rashes LABS: WBC= 9.5 HGB= 11.3 PLTs= 245K Na= 138 K= 3.9 HCO3= 37 BUN/Cr= 12/0.5 BS= 70 CXR: less prominent interstitial changes today, but RML and RLL interstitial changes persist. Assessment: 1. Acute hypercapneic hypoxemic Resp Failure, 2 Bronchitis and poor mobilization of secretions; h/o COPD with Emphysematous lung disease. 2. s/p PSVT 3. s/p Hypokalemia 4. Chronic Disease Anemia PLAN: 1. Will stop Pureed PO diet for now, continue PEG feeds. 2. CPAP PS as tolerated. 3. Additional Lasix IV PRN as BP tolerates. Will try to attain negative fluid balance. 4. Verapamil restarted. Will Stop Cardizem. No further PSVT episodes.
[2016-10-01] MEDS: Loperamide 1MG/7.5ML UD PO PRN (17:04)
--- NOTE | 2016-10-01 19:02 | CARD ---
APPROVED REPORT EKG Measurement Heart [id number] NM [id number] <Conclusion> Normal sinus rhythm Prolonged QT Abnormal ECG
[2016-10-02] MEDS: Clindamycin 600 MG in Sodium Chloride 0.9% 100 ML IVPB SCH ×3 (00:23→16:10)
[2016-10-02 05:09] LABS: ABG ALLEN TEST YES; ARTERIAL BLOOD GAS HCO3 41.4 mmol/L (21-28); ARTERIAL BLOOD GAS MODE CPAP; ARTERIAL BLOOD GAS O2 CAPACITY 15.6 mL/dL (16-24); ARTERIAL BLOOD GAS O2 CONTENT 15.3 ML/dL (15-23); ARTERIAL BLOOD GAS PO2 86 mm/Hg (80-100); ARTERIAL BLOOD HGB O2 SAT 94.6 % (95.0-98.0); ATERIAL BLOOD GAS PEEP 8; CARBOXYHEMOGLOBIN 1.7 % (0.5-1.5); HHB 1.7 % (0.0-5.0)
--- NOTE | 2016-10-02 08:09 | CP.CCUPN ---
CCU Subjective - Physician Review Events Since Last Encounter (Free Text): 10/02/16 08:07 Patient awake, on ventilator through tracheostomy on CPAP with PS 10, PEEP 8, FIO2 40%, on PEG feeding, no pressors, follow commands, events reviewed CCU Objective - Vital Signs / Intake & Output Vital Signs (Last 4 hours): Vital Signs Temp Pulse Resp BP Pulse Ox 10/02/16 07:44 98.5 F 90 14 94/60 L 99 Intake and Output (Last 8hrs): Intake & Output 10/01/16 10/02/16 10/02/16 22:59 06:59 14:59 Intake Total 1464 670 Output Total 900 1300 Balance 564 -630 Intake: IV 24 Intake, Piggyback 500 200 Tube Feeding 640 320 Free Water Flush 300 150 Output: Urine 900 1300 Urethral (Gutierrez) 900 1300 Other: # Bowel Movements 1 - Physical Exam Head: Positive for: Atraumatic, Normocephalic Pupils: Positive for: PERRL Extroacular Muscles: Positive for: EOMI Mouth: Positive for: Moist Mucous Membranes Respiratory/Chest: Positive for: Clear to Auscultation Cardiovascular: Positive for: Regular Rate and Rhythm Abdomen: Positive for: Normal Bowel Sounds, Ostomy Tubes (PEG in place). Negative for: Tenderness, Distention Psychiatric: Positive for: Alert - Medications Active Medications: Active Medications Generic Name Dose Route Start Last Admin Trade Name Freq PRN Reason Stop Dose Admin Albuterol Sulfate 2.5 mg 09/29/16 08:26 Albuterol 0.083% Inhal Aby (2.5 Mg/3 Ml) Ud INH RQ4 PRN Shortness of Breath Albuterol/Ipratropium 3 ml 09/29/16 12:00 10/01/16 19:02 Duoneb 3 Mg/0.5 Mg (3 Ml) Ud INH 3 ml RQID ANDREAS Administration Alprazolam 0.75 mg 09/28/16 10:56 10/01/16 23:30 Xanax PO 0.75 mg Q8 PRN Administration Agitation Anastrozole 1 mg 09/26/16 09:00 10/01/16 09:05 Arimidex 1 Mg Tab PO 1 mg DAILY [facility] Administration Enoxaparin Sodium 40 mg 09/26/16 09:00 10/01/16 09:12 Lovenox SC 40 mg DAILY [facility] Administration Protocol Famotidine 40 mg 09/30/16 17:30 10/01/16 09:12 Pepcid PO 40 mg DAILY [facility] Administration Fluticasone Propionate 2 spr 09/29/16 09:30 10/01/16 09:07 Flonase VON 2 spr DAILY [facility] Administration Gabapentin 600 mg 09/25/16 17:00 10/02/16 00:23 Neurontin PO 600 mg Q8 [facility] Administration Ceftazidime 2 gm/ Sodium 100 mls @ 200 mls/hr 09/26/16 17:00 10/02/16 00:21 Chloride IVPB 200 mls/hr Q8 [facility] Administration Linezolid 600 mg in 300 mls @ 300 mls/hr 09/26/16 21:00 10/01/16 20:24 Zyvox 600mg/300ml D5w IVPB 300 mls/hr Q12 [facility] Administration Clindamycin Phosphate 600 mg/ 104 mls @ 104 mls/hr 09/27/16 17:00 10/02/16 00 :23 Sodium Chloride IVPB 104 mls/hr Q8 [facility] Administration Methylprednisolone 30 mg/ 50 mls @ 100 mls/hr 09/29/16 09:00 10/01/16 09:13 Sodium Chloride IVPB 100 mls/hr DAILY [facility] Administration Lactobacillus Acidophilus 1 cap 09/25/16 17:00 10/01/16 17:00 Bacid Acidophilus PO 1 cap BID [facility] Administration Lidocaine 1 ea 09/25/16 16:30 10/01/16 09:09 Lidoderm TD Not Given DAILY [facility] Loperamide HCl 2 mg 09/26/16 18:14 10/01/16 17:04 Imodium 1mg/7.5ml Ud PO 2 mg Q4 PRN Administration Diarrhea Methimazole 5 mg 09/26/16 09:00 10/01/16 09:13 Tapazole PO 5 mg DAILY [facility] Administration Metoprolol Tartrate 6.25 mg 09/25/16 21:00 10/01/16 20:26 Lopressor PO 6.25 mg Q12 [facility] Administration Multi-Ingredient Cream 1 applic 09/25/16 17:00 10/01/16 17:02 Hydrocerin Cream TOP 1 applic BID [facility] Administration Spironolactone 25 mg 09/30/16 10:00 10/01/16 09:04 Aldactone PO 25 mg DAILY [facility] Administration Verapamil HCl 40 mg 09/30/16 13:00 10/01/16 17:00 Calan Tab PO 40 mg TID [facility] Administration - Patient Studies Lab Studies: Microbiology Studies 09/29/16 06:00 Blood Culture - Preliminary Blood NO GROWTH AFTER 3 DAYS Lab Studies 10/02/16 Range/Units 05:07 pCO2 46 H (35-45) mm/Hg pO2 86 (80-100) mm/Hg HCO3 41.4 H* (21-28) mmol/L ABG pH 7.60 H (7.35-7.45) ABG Total CO2 46.6 H (22-28) mmol/L ABG O2 Saturation 98.2 H (95-98) % ABG O2 Content 15.3 (15-23) ML/dL ABG Base Excess 21.2 H (-2.0-3.0) mmol/L ABG Hemoglobin 11.4 L (11.7-17.4) g/dL ABG Carboxyhemoglobin 1.7 H (0.5-1.5) % POC ABG HHb (Measured) 1.7 (0.0-5.0) % ABG Methemoglobin 2.0 (0.0-3.0) % ABG O2 Capacity 15.6 L (16-24) mL/dL Tawanda Test Yes A-a O2 Difference 142.0 mm/Hg Hgb O2 Saturation 94.6 L (95.0-98.0) % Vent Mode Cpap FiO2 40.0 % PEEP 8 Pressure Support 10 Crit Value Called To Dr nanda parks Crit Value Called By Crit Value Read Back Y Blood Gas Notified Time 509 Laboratory Results - last 24 hr 10/02/16 05:07 pCO2 46 H pO2 86 HCO3 41.4 H* ABG pH 7.60 H ABG Total CO2 46.6 H ABG O2 Saturation 98.2 H ABG O2 Content 15.3 ABG Base Excess 21.2 H ABG Hemoglobin 11.4 L ABG Carboxyhemoglobin 1.7 H POC ABG HHb (Measured) 1.7 ABG Methemoglobin 2.0 ABG O2 Capacity 15.6 L Tawanda Test Yes A-a O2 Difference 142.0 Hgb O2 Saturation 94.6 L Vent Mode Cpap FiO2 40.0 PEEP 8 Pressure Support 10 Crit Value Called To Dr nanda parks Crit Value Called By Salvador Crit Value Read Back Y Blood Gas Notified Time 509 Fingerstick Blood Sugar Results: 284 Assessment/Plan - Assessment and Plan (Free Text) Assessment: A/p Respiratory failure, COPD, bronchitis, s/p PSVT, anemia, ?pneumonia, s/p sepsis , CHF, pleural effusion - Ventilatory support - Weaning as tolerated - Pulmonary toilets - Continue meds - PEG feeding Critical care 35 min
[2016-10-02] MEDS: Albuterol-Ipratrop 3 mg / 0.5 (3 ml) UD INH SCH ×4 (08:24→20:10)
[2016-10-02] MEDS: methylPREDNISolone 30 MG in Sodium Chloride 0.9% 50 ML IVPB SCH (08:51)
[2016-10-02] MEDS: Enoxaparin 40 mg Syringe SC SCH (08:53)
[2016-10-02] MEDS: Lidocaine 5% Patch TD SCH (08:54)
[2016-10-02] MEDS: Lactobacillus Acidophilus 500 MU Cap PO SCH ×2 (08:58→16:05)
[2016-10-02] MEDS: Hydrocerin CREAM TOP SCH ×2 (08:59→16:13)
[2016-10-02] MEDS: methIMAzole 5 MG TAB PO SCH (10:22)
[2016-10-02] MEDS ORDERED: Chlorhexidine Gluconate 1 APPL/PKT TP ONE (10:53)
--- NOTE | 2016-10-02 11:16 | CP.PCM.PN ---
Subjective - Date & Time of Evaluation Date of Evaluation: 10/02/16 Time of Evaluation: 11:11 - Subjective Subjective: Had done well on current setting. Maintains good oxygenation. Breathing comfortably. Placed on trach collar @ 40%. Breath sounds are diminished bilaterally. Occasional expiratory wheeze is heard. Few rhonchi in dependant zones. Suctioned a small amount of thin, mucoid secretions. Tracheostomy tube changed to #6 cuffless tube w/o difficulty. Speaking valve attached with 40% O2 via collar. Will begin pureed diet and remove kimble catheter. If stable tonight she can be transferred out of the ICU tomorrow. May be OOB to chair as tolerated. Objective - Vital Signs/Intake and Output Vital Signs (last 24 hours): Temp Pulse Resp BP Pulse Ox 98.5 F 95 H 10 L 117/77 98 10/02/16 07:44 10/02/16 10:00 10/02/16 10:00 10/02/16 10:00 10/02/16 10:00 Intake and Output: 10/01/16 10/02/16 23:59 11:59 Intake Total 1464 1020 Output Total 900 1300 Balance 564 -280 - Medications Medications: Current Medications Albuterol Sulfate (Albuterol 0.083% Inhal Aby (2.5 Mg/3 Ml) Ud) 2.5 mg INH RQ4 PRN PRN Reason: Shortness of Breath Albuterol/Ipratropium (Duoneb 3 Mg/0.5 Mg (3 Ml) Ud) 3 ml INH RQID [facility] Last Admin: 10/02/16 08:24 Dose: 3 ml Alprazolam (Xanax) 0.75 mg PO Q8 PRN PRN Reason: Agitation Last Admin: 10/01/16 23:30 Dose: 0.75 mg Anastrozole (Arimidex 1 Mg Tab) 1 mg PO DAILY [facility] Last Admin: 10/02/16 09:02 Dose: 1 mg Enoxaparin Sodium (Lovenox) 40 mg SC DAILY [facility] PRN Reason: Protocol Last Admin: 10/02/16 08:53 Dose: 40 mg Famotidine (Pepcid) 40 mg PO DAILY [facility] Last Admin: 10/02/16 08:55 Dose: 40 mg Fluticasone Propionate (Flonase) 2 spr VON DAILY [facility] Last Admin: 10/02/16 08:52 Dose: 2 spr Gabapentin (Neurontin) 600 mg PO Q8 [facility] Last Admin: 10/02/16 08:55 Dose: 600 mg Ceftazidime 2 gm/ Sodium (Chloride) 100 mls @ 200 mls/hr IVPB Q8 [facility] Last Admin: 10/02/16 09:04 Dose: 200 mls/hr Linezolid (Zyvox 600mg/300ml D5w) 600 mg in 300 mls @ 300 mls/hr IVPB Q12 [facility] Last Admin: 10/01/16 20:24 Dose: 300 mls/hr Clindamycin Phosphate 600 mg/ (Sodium Chloride) 104 mls @ 104 mls/hr IVPB Q8 [facility] Last Admin: 10/02/16 10:21 Dose: 104 mls/hr Methylprednisolone 30 mg/ (Sodium Chloride) 50 mls @ 100 mls/hr IVPB DAILY [facility] Last Admin: 10/02/16 08:51 Dose: 100 mls/hr Lactobacillus Acidophilus (Bacid Acidophilus) 1 cap PO BID [facility] Last Admin: 10/02/16 08:58 Dose: 1 cap Lidocaine (Lidoderm) 1 ea TD DAILY [facility] Last Admin: 10/02/16 08:54 Dose: Not Given Loperamide HCl (Imodium 1mg/7.5ml Ud) 2 mg PO Q4 PRN PRN Reason: Diarrhea Last Admin: 10/01/16 17:04 Dose: 2 mg Methimazole (Tapazole) 5 mg PO DAILY [facility] Last Admin: 10/02/16 10:22 Dose: 5 mg Metoprolol Tartrate (Lopressor) 6.25 mg PO Q12 [facility] Last Admin: 10/02/16 08:56 Dose: 6.25 mg Multi-Ingredient Cream (Hydrocerin Cream) 1 applic TOP BID [facility] Last Admin: 10/02/16 08:59 Dose: 1 applic Spironolactone (Aldactone) 25 mg PO DAILY [facility] Last Admin: 10/02/16 08:55 Dose: 25 mg Verapamil HCl (Calan Tab) 40 mg PO TID [facility] Last Admin: 10/02/16 08:55 Dose: 40 mg - Labs Labs: 10/01/16 05:00 10/01/16 05:00 PT 11.3 SECONDS (9.6-11.2) H 09/25/16 13:00 INR 1.09 (0.92-1.08) H 09/25/16 13:00 APTT 26.6 SECONDS (23.3-32.5) 09/25/16 13:00 Assessment and Plan (1) Septic shock Status: Resolved (2) Pneumonia Status: Acute (3) Acute and chronic respiratory failure with hypercapnia Status: Chronic (4) Tachyarrhythmia Status: Resolved (5) Hx of breast cancer Status: Inactive (6) Hyperthyroidism Status: Chronic
[2016-10-02] MEDS: Linezolid 600 mg in D5W 300 ml 600 MG/300 ML BAG IVPB SCH ×2 (11:27→20:28)
--- NOTE | 2016-10-02 12:00 | CP.PCM.PN ---
Subjective - Date & Time of Evaluation Date of Evaluation: 10/02/16 Time of Evaluation: 11:45 - Subjective Subjective: Pt feels better no fevr no CP off CPAP, now on Trach Collar 40% and tolerating Passed swallow eval - Pureed diet , nectar thickened no abdominal pain on Jevity tube feeding - gets diarrhea when on tube feeding - had 2 episodes yesterday Objective - Vital Signs/Intake and Output Vital Signs (last 24 hours): Temp Pulse Resp BP Pulse Ox 98.5 F 95 H 10 L 117/77 98 10/02/16 07:44 10/02/16 10:00 10/02/16 10:00 10/02/16 10:00 10/02/16 10:00 Intake and Output: 10/02/16 10/02/16 06:59 18:59 Intake Total 1280 850 Output Total 1300 Balance -20 850 - Medications Medications: Current Medications Albuterol Sulfate (Albuterol 0.083% Inhal Aby (2.5 Mg/3 Ml) Ud) 2.5 mg INH RQ4 PRN PRN Reason: Shortness of Breath Albuterol/Ipratropium (Duoneb 3 Mg/0.5 Mg (3 Ml) Ud) 3 ml INH RQID [facility] Last Admin: 10/02/16 11:13 Dose: 3 ml Alprazolam (Xanax) 0.75 mg PO Q8 PRN PRN Reason: Agitation Last Admin: 10/01/16 23:30 Dose: 0.75 mg Anastrozole (Arimidex 1 Mg Tab) 1 mg PO DAILY [facility] Last Admin: 10/02/16 09:02 Dose: 1 mg Enoxaparin Sodium (Lovenox) 40 mg SC DAILY [facility] PRN Reason: Protocol Last Admin: 10/02/16 08:53 Dose: 40 mg Famotidine (Pepcid) 40 mg PO DAILY [facility] Last Admin: 10/02/16 08:55 Dose: 40 mg Fluticasone Propionate (Flonase) 2 spr VON DAILY [facility] Last Admin: 10/02/16 08:52 Dose: 2 spr Gabapentin (Neurontin) 600 mg PO Q8 [facility] Last Admin: 10/02/16 08:55 Dose: 600 mg Ceftazidime 2 gm/ Sodium (Chloride) 100 mls @ 200 mls/hr IVPB Q8 [facility] Last Admin: 10/02/16 09:04 Dose: 200 mls/hr Linezolid (Zyvox 600mg/300ml D5w) 600 mg in 300 mls @ 300 mls/hr IVPB Q12 [facility] Last Admin: 10/02/16 11:27 Dose: 300 mls/hr Clindamycin Phosphate 600 mg/ (Sodium Chloride) 104 mls @ 104 mls/hr IVPB Q8 [facility] Last Admin: 10/02/16 10:21 Dose: 104 mls/hr Methylprednisolone 30 mg/ (Sodium Chloride) 50 mls @ 100 mls/hr IVPB DAILY [facility] Last Admin: 10/02/16 08:51 Dose: 100 mls/hr Lactobacillus Acidophilus (Bacid Acidophilus) 1 cap PO BID [facility] Last Admin: 10/02/16 08:58 Dose: 1 cap Lidocaine (Lidoderm) 1 ea TD DAILY [facility] Last Admin: 10/02/16 08:54 Dose: Not Given Loperamide HCl (Imodium 1mg/7.5ml Ud) 2 mg PO Q4 PRN PRN Reason: Diarrhea Last Admin: 10/01/16 17:04 Dose: 2 mg Methimazole (Tapazole) 5 mg PO DAILY [facility] Last Admin: 10/02/16 10:22 Dose: 5 mg Metoprolol Tartrate (Lopressor) 6.25 mg PO Q12 [facility] Last Admin: 10/02/16 08:56 Dose: 6.25 mg Multi-Ingredient Cream (Hydrocerin Cream) 1 applic TOP BID [facility] Last Admin: 10/02/16 08:59 Dose: 1 applic Spironolactone (Aldactone) 25 mg PO DAILY [facility] Last Admin: 10/02/16 08:55 Dose: 25 mg Verapamil HCl (Calan Tab) 40 mg PO TID [facility] Last Admin: 10/02/16 08:55 Dose: 40 mg - Labs Labs: 10/01/16 05:00 10/01/16 05:00 PT 11.3 SECONDS (9.6-11.2) H 09/25/16 13:00 INR 1.09 (0.92-1.08) H 09/25/16 13:00 APTT 26.6 SECONDS (23.3-32.5) 09/25/16 13:00 - Constitutional Appears: Older Than Stated Age, Chronically Ill - Head Exam Head Exam: NORMAL INSPECTION, NORMOCEPHALIC - Eye Exam Eye Exam: EOMI, Normal appearance Pupil Exam: NORMAL ACCOMODATION - ENT Exam ENT Exam: Mucous Membranes Dry, Normal External Ear Exam - Neck Exam Neck Exam: Full ROM. absent: Meningismus + Trach - Respiratory Exam Respiratory Exam: Decreased Breath Sounds, Rales, Rhonchi on Trach collar - Cardiovascular Exam Cardiovascular Exam: REGULAR RHYTHM, +S1, +S2 - GI/Abdominal Exam GI & Abdominal Exam: Soft, Normal Bowel Sounds. absent: Tenderness Additional comments: + PEG - Extremities Exam Extremities Exam: Normal Capillary Refill, Pedal Edema. absent: Calf Tenderness Additional comments: right arm edema - Back Exam Back Exam: Full ROM. absent: CVA tenderness (L), CVA tenderness (R), paraspinal tenderness, vertebral tenderness - Neurological Exam Neurological Exam: Alert, Awake, CN II-XII Intact, Oriented x3 - Psychiatric Exam Psychiatric exam: Normal Affect, Normal Mood - Skin Skin Exam: Dry, Normal Color, Warm Assessment and Plan - Assessment and Plan (Free Text) Assessment: 66 y/o female PMH Chronic Respiratory Failure with Trach (placed 07/2016), s/p gastric tube placement , CHF (systolic+diastolic), COPD, bilateral metastatic breast CA to shoulder s/p chemo/rad 8 years ago (s/p humerus resection) with chronic lymphedema RUE, HTN, hyperthyroidism, tachycardia/SVT, R cephalic vein thrombosis, anxiety, brought in by EMS with severe acute respiratory distress associated with altered mental status/confusion from halfway. Airleak was present at time of arrival to ER, ABG showed hypercarbia and Trach was changed from uncuffed to cuffed by ER and connected to MV PRVC/ AC mode. Patient found to be tachycardic, tachypneic ,hypotensive , febrile Tmax 103, elevated WBC and CXR showed bilateral infiltrates. She was admitted in ICU in septic shock, started on IVF, pressors and IV antibiotics. Blood cx grew Staph aureus. ID , pulmonary consulted At present she is off pressors and on Trach Collar. Passed Swallow eval - Pureed, nectar thickened 1.Acute on Chronic Hypercapneic Respiratory Failure -- multifactorial secondary to COPD exacerbation ,HCAP ,pleural effusion and CHF exacerbation Off Vent - on Trach Collar 40-% and tolerating Pulmonary on consult following closely. Trach changed to cuffless Continue Duonebs, IV antibiotics on Solumedrol 30 mg IV daily 2. Septic shock patient was febrile, hypotensive ,tachypneic , tachycardic,with elevated WBC, with AMS,Pneumonia on CXR and positive blood cultures Now off Levophed Blood cx positive for Staph aureus . Wound cx positive for Staph aureus ID consulted Continue Fortaz, Linezolid, Clindamycin. removed Tunneled PICC on right chest ( placed in July ) Repeat blood culture with no growth so far 3. Bacteremia Staph aureus positive Continue IV Zyvox discontinued tunneled PICC line that was placed in July 4.Bilateral Small/ moderate pleural effusion CTA showed sm to mod bilateral pleural effusions Pulmonary consulted Continue current management 5. Acute on Chronic Decompensated Systolic and Diastolic Heart Failure With vascular congestion on admission that improved , BNP 7130 LAST ECHO 06/14/2016: Mild to moderate decreased LVEF 40-45%, RV moderately dilated, decreased RV function, Diastolic inflow pattern restrictive Daily weights and Regular diet. Continue Lopressor 6.25mg q12 and Spironolactone 25 mg po daily Monitor for fluid overload, Lasix as necessary 6. PE ruled out CTA neg for PE Dimer elevated in ER 4.9, CTA NEG for PE hx of R cephalic vein thrombosis 7.Elevated Troponin Most likely 2/2 cardiac strain due to prolonged sinus tachycardia Cardiology Consult with Dr. Manuel Luu 8.Sinus Tachycardia/Hx SVT Patient was on Verapamil 180 MG CR-- currently on hold off Cardizem drip on Cardizem PO and lopressor . Monitor Bp closely since is on the lower side 9.Hx Bilateral Mastectomy, breast CA with chronic lymphedema RUE and peripheral neuropathy Continue Arimidex 1 mg po Daily Continue Gabapentin 600 mg po q8h Lidocaine patch 10.Hypertension Monitor closely due to episodes of hypotension 11.Hyperthyroidism TSH normal low @ 0.67 Continue Tapazole 5 mg po daily Check T3 T4 12. Nutrition Pt has PEG, was on Jevity at 40cc/hr on discharge, however patient has been on regular diet at [place]. Cont Jevity feed @40cc with Imodium. start Pureeed diet , nectar thickened GI consulted for removal of peg tube 13.VTE ppx Lovenox
[2016-10-02] MEDS: Loperamide 1MG/7.5ML UD PO PRN ×2 (13:20→17:21)
[2016-10-03] MEDS: Clindamycin 600 MG in Sodium Chloride 0.9% 100 ML IVPB SCH ×3 (00:05→17:49)
--- NOTE | 2016-10-03 07:19 | CP.CCUPN ---
CCU Subjective - Physician Review Events Since Last Encounter (Free Text): 10/03/16 07:18 Patient awake, trach collar, no distress, on PEG feeding, no pressors, no fever , no chest pain, follow commands, events reviewed CCU Objective - Vital Signs / Intake & Output Vital Signs (Last 4 hours): Vital Signs Temp Pulse Resp BP Pulse Ox 10/03/16 06:00 79 14 113/78 98 10/03/16 04:00 98.3 F 82 15 115/75 98 Intake and Output (Last 8hrs): Intake & Output 10/02/16 10/03/16 10/03/16 22:59 06:59 14:59 Intake Total 740 320 Output Total 2900 1200 Balance -2160 -880 Intake: Intake, Piggyback 500 200 Oral 240 120 Output: Urine 2900 1200 Urethral (Gutierrez) 2200 Urine, Voided 700 1200 Other: # Voids Urine, Voided 2 2 - Physical Exam Head: Positive for: Atraumatic, Normocephalic Pupils: Positive for: PERRL Extroacular Muscles: Positive for: EOMI Mouth: Positive for: Moist Mucous Membranes Respiratory/Chest: Positive for: Clear to Auscultation Cardiovascular: Positive for: Regular Rate and Rhythm Abdomen: Positive for: Normal Bowel Sounds, Ostomy Tubes (PEG in place). Negative for: Tenderness, Distention Psychiatric: Positive for: Alert - Medications Active Medications: Active Medications Generic Name Dose Route Start Last Admin Trade Name Freq PRN Reason Stop Dose Admin Albuterol Sulfate 2.5 mg 09/29/16 08:26 Albuterol 0.083% Inhal Aby (2.5 Mg/3 Ml) Ud INH RQ4 PRN Shortness of Breath Albuterol/Ipratropium 3 ml 09/29/16 12:00 10/02/16 20:10 Duoneb 3 Mg/0.5 Mg (3 Ml) Ud INH 3 ml RQID [facility] Administration Anastrozole 1 mg 09/26/16 09:00 10/02/16 09:02 Arimidex 1 Mg Tab PO 1 mg DAILY [facility] Administration Enoxaparin Sodium 40 mg 09/26/16 09:00 10/02/16 08:53 Lovenox SC 40 mg DAILY [facility] Administration Protocol Famotidine 40 mg 09/30/16 17:30 10/02/16 08:55 Pepcid PO 40 mg DAILY [facility] Administration Fluticasone Propionate 2 spr 09/29/16 09:30 10/02/16 08:52 Flonase VON 2 spr DAILY [facility] Administration Gabapentin 600 mg 09/25/16 17:00 10/03/16 00:06 Neurontin PO 600 mg Q8 [facility] Administration Ceftazidime 2 gm/ Sodium 100 mls @ 200 mls/hr 09/26/16 17:00 10/03/16 00:04 Chloride IVPB 200 mls/hr Q8 [facility] Administration Linezolid 600 mg in 300 mls @ 300 mls/hr 09/26/16 21:00 10/02/16 20:28 Zyvox 600mg/300ml D5w IVPB 300 mls/hr Q12 [facility] Administration Clindamycin Phosphate 600 mg/ 104 mls @ 104 mls/hr 09/27/16 17:00 10/03/16 00 :05 Sodium Chloride IVPB 104 mls/hr Q8 [facility] Administration Methylprednisolone 30 mg/ 50 mls @ 100 mls/hr 09/29/16 09:00 10/02/16 08:51 Sodium Chloride IVPB 100 mls/hr DAILY [facility] Administration Lactobacillus Acidophilus 1 cap 09/25/16 17:00 10/02/16 16:05 Bacid Acidophilus PO 1 cap BID [facility] Administration Lidocaine 1 ea 09/25/16 16:30 10/02/16 08:54 Lidoderm TD Not Given DAILY [facility] Loperamide HCl 2 mg 09/26/16 18:14 10/02/16 17:21 Imodium 1mg/7.5ml Ud PO 2 mg Q4 PRN Administration Diarrhea Methimazole 5 mg 09/26/16 09:00 10/02/16 10:22 Tapazole PO 5 mg DAILY [facility] Administration Metoprolol Tartrate 6.25 mg 09/25/16 21:00 10/02/16 20:28 Lopressor PO 6.25 mg Q12 [facility] Administration Multi-Ingredient Cream 1 applic 09/25/16 17:00 10/02/16 16:13 Hydrocerin Cream TOP 1 applic BID [facility] Administration Spironolactone 25 mg 09/30/16 10:00 10/02/16 08:55 Aldactone PO 25 mg DAILY [facility] Administration Verapamil HCl 120 mg 10/03/16 09:00 Calan Sr Tab PO DAILY [facility] - Patient Studies Lab Studies: Microbiology Studies 09/29/16 06:00 Blood Culture - Preliminary Blood NO GROWTH AFTER 3 DAYS Fingerstick Blood Sugar Results: 284 Critical Care Progress Note - Nutrition Nutrition: Nutrition Category Date Time Status Dysphagia/Modified Consistency Diet [DIET] Diets 10/02/16 Lunch Active Assessment/Plan - Assessment and Plan (Free Text) Assessment: A/p Respiratory failure improved, COPD, bronchitis, s/p PSVT, anemia, ?pneumonia, s/ p sepsis, CHF, pleural effusion - Trach collar - O2 supplement - Pulmonary toilets - Continue meds - PEG feeding
[2016-10-03] MEDS: Albuterol-Ipratrop 3 mg / 0.5 (3 ml) UD INH SCH ×4 (08:10→19:22)
[2016-10-03 08:14] LABS: HEMATOCRIT 39.4 % (34.0-47.0); MEAN CELL VOLUME 96.2 fl (81.0-99.0); MEAN CORPUSCULAR HEMOGLOBIN 30.3 pg (27.0-31.0); MEAN CORPUSCULAR HGB CONC 31.5 g/dL (33.0-37.0); RED CELL DISTRIBUTION WIDTH 16.7 % (11.5-14.5); WHITE BLOOD COUNT 7.4 K/uL (4.8-10.8)
[2016-10-03] MEDS: methIMAzole 5 MG TAB PO SCH (08:55)
[2016-10-03] MEDS: methylPREDNISolone 30 MG in Sodium Chloride 0.9% 50 ML IVPB SCH (08:55)
[2016-10-03] MEDS: Enoxaparin 40 mg Syringe SC SCH (08:56)
[2016-10-03] MEDS: Lactobacillus Acidophilus 500 MU Cap PO SCH ×2 (08:57→16:33)
[2016-10-03] MEDS: Hydrocerin CREAM TOP SCH ×2 (08:58→16:33)
[2016-10-03] MEDS: Lidocaine 5% Patch TD SCH (08:59)
[2016-10-03] MEDS ORDERED: Verapamil 120 mg ER Tab PO SCH (09:00)
[2016-10-03 09:04] LABS: BLOOD UREA NITROGEN 9 mg/dl (7-17); CALCIUM 8.9 mg/dL (8.4-10.2); CARBON DIOXIDE 37 mmol/L (22-30); CHLORIDE 94 mmol/L (98-107); GFR AFRICAN-AMERICAN > 60; GLUCOSE,RANDOM 60 mg/dL (65-105); POTASSIUM 3.7 MMOL/L (3.6-5.0); SODIUM 139 mmol/l (132-148)
[2016-10-03] MEDS: Linezolid 600 mg in D5W 300 ml 600 MG/300 ML BAG IVPB SCH ×2 (10:30→20:10)
--- NOTE | 2016-10-03 12:16 | CP.PCM.PN ---
Subjective - Date & Time of Evaluation Date of Evaluation: 10/03/16 Time of Evaluation: 11:00 - Subjective Subjective: Pt looks very comfortable - sitted on chair On Trach Collar and tolerating- Saturation 94% Tolerated PO diet - on Pureed diet but wants diet changed to regular consistency - will get Swallow eval denies CP no cough no SOB no abd pain had 2 soft stools overnight Objective - Vital Signs/Intake and Output Vital Signs (last 24 hours): Temp Pulse Resp BP Pulse Ox 98.2 F 88 14 96/61 L 92 L 10/03/16 12:00 10/03/16 12:00 10/03/16 12:00 10/03/16 12:00 10/03/16 12:00 Intake and Output: 10/03/16 10/03/16 06:59 18:59 Intake Total 620 500 Output Total 1900 400 Balance -1280 100 - Medications Medications: Current Medications Albuterol Sulfate (Albuterol 0.083% Inhal Aby (2.5 Mg/3 Ml) Ud) 2.5 mg INH RQ4 PRN PRN Reason: Shortness of Breath Albuterol/Ipratropium (Duoneb 3 Mg/0.5 Mg (3 Ml) Ud) 3 ml INH RQID [facility] Last Admin: 10/03/16 08:10 Dose: 3 ml Anastrozole (Arimidex 1 Mg Tab) 1 mg PO DAILY [facility] Last Admin: 10/03/16 08:54 Dose: 1 mg Enoxaparin Sodium (Lovenox) 40 mg SC DAILY [facility] PRN Reason: Protocol Last Admin: 10/03/16 08:56 Dose: 40 mg Famotidine (Pepcid) 40 mg PO DAILY [facility] Last Admin: 10/03/16 09:01 Dose: 40 mg Fluticasone Propionate (Flonase) 2 spr VON DAILY [facility] Last Admin: 10/03/16 08:58 Dose: 2 spr Gabapentin (Neurontin) 600 mg PO Q8 [facility] Last Admin: 10/03/16 09:00 Dose: 600 mg Ceftazidime 2 gm/ Sodium (Chloride) 100 mls @ 200 mls/hr IVPB Q8 [facility] Last Admin: 10/03/16 09:15 Dose: 200 mls/hr Linezolid (Zyvox 600mg/300ml D5w) 600 mg in 300 mls @ 300 mls/hr IVPB Q12 [facility] Last Admin: 10/02/16 20:28 Dose: 300 mls/hr Clindamycin Phosphate 600 mg/ (Sodium Chloride) 104 mls @ 104 mls/hr IVPB Q8 [facility] Last Admin: 10/03/16 00:05 Dose: 104 mls/hr Methylprednisolone 30 mg/ (Sodium Chloride) 50 mls @ 100 mls/hr IVPB DAILY [facility] Last Admin: 10/03/16 08:55 Dose: 100 mls/hr Lactobacillus Acidophilus (Bacid Acidophilus) 1 cap PO BID [facility] Last Admin: 10/03/16 08:57 Dose: 1 cap Lidocaine (Lidoderm) 1 ea TD DAILY [facility] Last Admin: 10/03/16 08:59 Dose: Not Given Loperamide HCl (Imodium 1mg/7.5ml Ud) 2 mg PO Q4 PRN PRN Reason: Diarrhea Last Admin: 10/02/16 17:21 Dose: 2 mg Methimazole (Tapazole) 5 mg PO DAILY [facility] Last Admin: 10/03/16 08:55 Dose: 5 mg Metoprolol Tartrate (Lopressor) 6.25 mg PO Q12 [facility] Last Admin: 10/03/16 08:56 Dose: 6.25 mg Multi-Ingredient Cream (Hydrocerin Cream) 1 applic TOP BID [facility] Last Admin: 10/03/16 08:58 Dose: 1 applic Spironolactone (Aldactone) 25 mg PO DAILY [facility] Last Admin: 10/03/16 08:53 Dose: 25 mg Verapamil HCl (Calan Sr Tab) 120 mg PO DAILY [facility] Last Admin: 10/03/16 08:54 Dose: 120 mg - Labs Labs: 10/03/16 05:30 10/03/16 05:30 PT 11.3 SECONDS (9.6-11.2) H 09/25/16 13:00 INR 1.09 (0.92-1.08) H 09/25/16 13:00 APTT 26.6 SECONDS (23.3-32.5) 09/25/16 13:00 - Constitutional Appears: Older Than Stated Age, Chronically Ill - Head Exam Head Exam: NORMAL INSPECTION, NORMOCEPHALIC - Eye Exam Eye Exam: EOMI, Normal appearance Pupil Exam: NORMAL ACCOMODATION - ENT Exam ENT Exam: Mucous Membranes Dry, Normal External Ear Exam - Neck Exam Neck Exam: Full ROM. absent: Meningismus + Trach - Respiratory Exam Respiratory Exam: Decreased Breath Sounds, Rales, Rhonchi on Trach collar - Cardiovascular Exam Cardiovascular Exam: REGULAR RHYTHM, +S1, +S2 - GI/Abdominal Exam GI & Abdominal Exam: Soft, Normal Bowel Sounds. absent: Tenderness Additional comments: + PEG - Extremities Exam Extremities Exam: Normal Capillary Refill, Pedal Edema. absent: Calf Tenderness Additional comments: right arm edema - Back Exam Back Exam: Full ROM. absent: CVA tenderness (L), CVA tenderness (R), paraspinal tenderness, vertebral tenderness - Neurological Exam Neurological Exam: Alert, Awake, CN II-XII Intact, Oriented x3 - Psychiatric Exam Psychiatric exam: Normal Affect, Normal Mood - Skin Skin Exam: Dry, Normal Color, Warm Assessment and Plan - Assessment and Plan (Free Text) Assessment: 66 y/o female PMH Chronic Respiratory Failure with Trach (placed 07/2016), s/p gastric tube placement , CHF (systolic+diastolic), COPD, bilateral metastatic breast CA to shoulder s/p chemo/rad 8 years ago (s/p humerus resection) with chronic lymphedema RUE, HTN, hyperthyroidism, tachycardia/SVT, R cephalic vein thrombosis, anxiety, brought in by EMS with severe acute respiratory distress associated with altered mental status/[facility] Airleak was present at time of arrival to ER, ABG showed hypercarbia and Trach was changed from uncuffed to cuffed by ER and connected to MV PRVC/ AC mode. Patient found to be tachycardic, tachypneic ,hypotensive , febrile Tmax 103, elevated WBC and CXR showed bilateral infiltrates. She was admitted in ICU in septic shock, started on IVF, pressors and IV antibiotics. Blood cx grew Staph aureus. ID , pulmonary consulted At present she is off pressors and on Trach Collar. Passed Swallow eval - Pureed, nectar thickened- Tolerating PO diet 1.Acute on Chronic Hypercapneic Respiratory Failure -- multifactorial secondary to COPD exacerbation ,HCAP ,pleural effusion and CHF exacerbation Off Vent - on Trach Collar 40-% and tolerating Pulmonary on consult following closely. Trach changed to cuffless Continue Duonebs, IV antibiotics on Solumedrol 30 mg IV daily - will decrease to 20 mg daily 2. Septic shock patient was febrile, hypotensive ,tachypneic , tachycardic,with elevated WBC, with AMS,Pneumonia on CXR and positive blood cultures Was on Levophed initially Blood cx positive for Staph aureus . Wound cx positive for Staph aureus ID consulted Continue Fortaz, Linezolid, Clindamycin. removed Tunneled PICC on right chest ( placed in July ) Repeat blood culture with no growth so far 3. Bacteremia Staph aureus positive Continue IV Zyvox discontinued tunneled PICC line that was placed in July 4.Bilateral Small/ moderate pleural effusion CTA showed sm to mod bilateral pleural effusions Pulmonary consulted Continue current management 5. Acute on Chronic Decompensated Systolic and Diastolic Heart Failure With vascular congestion on admission that improved , BNP 7130 LAST ECHO 06/14/2016: Mild to moderate decreased LVEF 40-45%, RV moderately dilated, decreased RV function, Diastolic inflow pattern restrictive Daily weights and Regular diet. Continue Lopressor 6.25mg q12 and Spironolactone 25 mg po daily Monitor for fluid overload, Lasix as necessary 6. PE ruled out CTA neg for PE Dimer elevated in ER 4.9, CTA NEG for PE hx of R cephalic vein thrombosis 7.Elevated Troponin Most likely 2/2 cardiac strain due to prolonged sinus tachycardia Cardiology Consult with Dr. Manuel Luu 8.Sinus Tachycardia/Hx SVT Patient was on Verapamil 180 MG CR-- currently on hold off Cardizem drip on Cardizem PO and lopressor . Monitor Bp closely since is on the lower side 9.Hx Bilateral Mastectomy, breast CA with chronic lymphedema RUE and peripheral neuropathy Continue Arimidex 1 mg po Daily Continue Gabapentin 600 mg po q8h Lidocaine patch 10.Hypertension Monitor closely due to episodes of hypotension 11.Hyperthyroidism TSH normal low @ 0.67 Continue Tapazole 5 mg po daily Check T3 T4 12. Nutrition Pt has PEG, was on Jevity at 40cc/hr on discharge, however patient has been on regular diet at [place]. On Pureed diet , nectar thickened GI consulted for removal of peg tube 13.VTE ppx Lovenox
[2016-10-03] MEDS: Loperamide 1MG/7.5ML UD PO PRN (12:56)
--- NOTE | 2016-10-03 16:51 | RAD ---
HISTORY: pneumonia COMPARISON: No prior. FINDINGS: LUNGS: In situ tracheostomy tube in good position. Bibasilar opacities likely representing some combination of atelectasis/infiltrate and bilateral effusions. PLEURA: No significant pleural effusion identified, no pneumothorax apparent. CARDIOVASCULAR: Heart appears enlarged. 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 OTHER FINDINGS: None. IMPRESSION: In situ tracheostomy tube in good position. Bibasilar opacities likely representing some combination of atelectasis/infiltrate and bilateral effusions.
[2016-10-04] MEDS: Clindamycin 600 MG in Sodium Chloride 0.9% 100 ML IVPB SCH ×3 (00:51→17:14)
--- NOTE | 2016-10-04 08:53 | CP.CCUPN ---
CCU Subjective - Physician Review Subjective (Free Text): 10/04/16 The Patient was seen and examined at the bedside, Medical records reviewed, all clinical/lab/hemodynamic/radiographic data were reviewed and management issues were discussed and formulated, Events reviewed Patient tolerating trach collar, SPO2 97%. Speaking valve in place, good vocalizing and able to communicate Comfortable, no distress On PEG feeding, will be evaluated by speech therapy today. She was OOB to chair for 4 hours yesterday No chest pain, no fever. Awake, follow commands Afebrile overnight CCU Objective - Vital Signs / Intake & Output Vital Signs (Last 4 hours): Vital Signs Temp Pulse Resp BP Pulse Ox 10/04/16 08:00 97.8 F 78 14 98/69 L 95 10/04/16 06:00 74 16 119/68 98 Intake and Output (Last 8hrs): Intake & Output 10/03/16 10/04/16 10/04/16 22:59 06:59 14:59 Intake Total 1060 380 Output Total 800 150 Balance 260 230 Intake: IV 20 Intake, Piggyback 600 100 Oral 400 60 Tube Feeding 200 Free Water Flush 60 Output: Urine 800 150 Urine, Voided 800 150 - Physical Exam Head: Positive for: Atraumatic, Normocephalic Pupils: Positive for: PERRL Extroacular Muscles: Positive for: EOMI Mouth: Positive for: Moist Mucous Membranes Respiratory/Chest: Positive for: Clear to Auscultation Cardiovascular: Positive for: Regular Rate and Rhythm Abdomen: Positive for: Normal Bowel Sounds, Ostomy Tubes (PEG in place). Negative for: Tenderness, Distention Psychiatric: Positive for: Alert - Medications Active Medications: Active Medications Generic Name Dose Route Start Last Admin Trade Name Freq PRN Reason Stop Dose Admin Albuterol Sulfate 2.5 mg 09/29/16 08:26 Albuterol 0.083% Inhal Aby (2.5 Mg/3 Ml) Ud INH RQ4 PRN Shortness of Breath Albuterol/Ipratropium 3 ml 09/29/16 12:00 10/03/16 19:22 Duoneb 3 Mg/0.5 Mg (3 Ml) Ud INH 3 ml RQID [facility] Administration Alprazolam 0.5 mg 10/04/16 08:48 Xanax PO Q8 PRN Agitation Anastrozole 1 mg 09/26/16 09:00 10/03/16 08:54 Arimidex 1 Mg Tab PO 1 mg DAILY [facility] Administration Enoxaparin Sodium 40 mg 09/26/16 09:00 10/03/16 08:56 Lovenox SC 40 mg DAILY [facility] Administration Protocol Famotidine 40 mg 09/30/16 17:30 10/03/16 09:01 Pepcid PO 40 mg DAILY [facility] Administration Fluticasone Propionate 2 spr 09/29/16 09:30 10/03/16 08:58 Flonase VON 2 spr DAILY [facility] Administration Gabapentin 600 mg 09/25/16 17:00 10/04/16 00:53 Neurontin PO 600 mg Q8 [facility] Administration Ceftazidime 2 gm/ Sodium 100 mls @ 200 mls/hr 09/26/16 17:00 10/04/16 00:50 Chloride IVPB 200 mls/hr Q8 [facility] Administration Linezolid 600 mg in 300 mls @ 300 mls/hr 09/26/16 21:00 10/03/16 20:10 Zyvox 600mg/300ml D5w IVPB 300 mls/hr Q12 [facility] Administration Clindamycin Phosphate 600 mg/ 104 mls @ 104 mls/hr 09/27/16 17:00 10/04/16 00 :51 Sodium Chloride IVPB 104 mls/hr Q8 [facility] Administration Methylprednisolone 20 mg/ 50 mls @ 100 mls/hr 10/04/16 09:00 Sodium Chloride IVPB DAILY [facility] Lactobacillus Acidophilus 1 cap 09/25/16 17:00 10/03/16 16:33 Bacid Acidophilus PO 1 cap BID [facility] Administration Lidocaine 1 ea 09/25/16 16:30 10/03/16 08:59 Lidoderm TD Not Given DAILY [facility] Loperamide HCl 2 mg 10/03/16 12:45 Imodium PO Q4 PRN Diarrhea Methimazole 5 mg 09/26/16 09:00 10/03/16 08:55 Tapazole PO 5 mg DAILY [facility] Administration Metoprolol Tartrate 6.25 mg 09/25/16 21:00 10/03/16 20:13 Lopressor PO 6.25 mg Q12 [facility] Administration Multi-Ingredient Cream 1 applic 09/25/16 17:00 10/03/16 16:33 Hydrocerin Cream TOP 1 applic BID [facility] Administration Spironolactone 25 mg 09/30/16 10:00 10/03/16 08:53 Aldactone PO 25 mg DAILY [facility] Administration Verapamil HCl 120 mg 10/03/16 09:00 10/03/16 08:54 Calan Sr Tab PO 120 mg DAILY [facility] Administration - Patient Studies Lab Studies: Microbiology Studies 09/29/16 06:00 Blood Culture - Final Blood NO GROWTH AFTER 5 DAYS Gram Stain - Final TEST NOT PERFORMED Lab Studies 10/03/16 Range/Units 05:30 Sodium 139 (132-148) mmol/l Potassium 3.7 (3.6-5.0) MMOL/L Chloride 94 L (98-107) mmol/L Carbon Dioxide 37 H (22-30) mmol/L Anion Gap 12 (10-20) BUN 9 (7-17) mg/dl Creatinine 0.5 L (0.7-1.2) mg/dL Est GFR ( Amer) > 60 Est GFR (Non-Af Amer) > 60 Random Glucose 60 L (65-105) mg/dL Calcium 8.9 (8.4-10.2) mg/dL Laboratory Results - last 24 hr 10/03/16 05:30 Sodium 139 Potassium 3.7 Chloride 94 L Carbon Dioxide 37 H Anion Gap 12 BUN 9 Creatinine 0.5 L Est GFR ( Amer) > 60 Est GFR (Non-Af Amer) > 60 Random Glucose 60 L Calcium 8.9 Fingerstick Blood Sugar Results: 284 Review of Systems - Cardiovascular Cardiovascular: absent: As Per HPI, Acrocyanosis, Chest Pain, Chest Pain at Rest , Chest Pain with Activity, Claudication, Diaphoresis, Dyspnea, Dyspnea on Exertion, Edema, Irregular Heart Rhythm, Pain Radiating to Arm/Neck/Jaw, Leg Edema, Leg Ulcers, Lightheadedness, Orthopnea, Palpitations, Paroxysmal Nocturnal Dyspnea, Pedal Edema, Radiating Pain, Rapid Heart Rate, Slow Heart Rate, Syncope, Other, UNREMARKABLE - Respiratory Respiratory: absent: As Per HPI, Cough, Dyspnea, Hemoptysis, Dyspnea on Exertion , Wheezing, Snoring, Stridor, Pain on Inspiration, Chest Congestion, Excessive Mucous Production, Change in Mucous Color, Pain with Coughing, Other, UNREMARKABLE Critical Care Progress Note - Nutrition Nutrition: Nutrition Category Date Time Status Dysphagia/Modified Consistency Diet [DIET] Diets 10/02/16 Lunch Active Assessment/Plan (1) Acute respiratory failure with hypercapnia Current Visit: Yes Status: Acute Comment: Secondary to COPD exacerbation, HCAP with small/moderate bilateral pleural effusion and CHF exacerbation S/p Tracheostomy Doing better, Patient tolerating trach collar, no distress Continue IV Antibiotics, steroids, DuoNeb (2) Moderate COPD (chronic obstructive pulmonary disease) Current Visit: Yes Status: Acute Comment: Methylprednisolone 20 mg IVPB DAILY Albuterol/Ipratropium (Duoneb) 3 ml INH QID (3) Pneumonia Current Visit: Yes Status: Acute Priority: High Comment: Continue IV Zyvox, Clindamycin and Ceftazidime (4) Bacteremia Current Visit: No Status: Acute Priority: High Comment: Continue IV Zyvox, Clindamycin and Ceftazidime, followed by ID. (5) Septic shock Current Visit: Yes Status: Resolved Priority: High Comment: Improved, Off pressors VSS. Afebrile Continue IV Zyvox, Clindamycin and Ceftazidime
[2016-10-04] MEDS ORDERED: methylPREDNISolone 20 MG in Sodium Chloride 0.9% 50 ML IVPB SCH (09:00)
[2016-10-04] MEDS: methIMAzole 5 MG TAB PO SCH (09:35)
[2016-10-04] MEDS: Enoxaparin 40 mg Syringe SC SCH (09:36)
[2016-10-04] MEDS: Lidocaine 5% Patch TD SCH (09:41)
[2016-10-04] MEDS: Lactobacillus Acidophilus 500 MU Cap PO SCH ×2 (09:42→17:13)
[2016-10-04] MEDS: Hydrocerin CREAM TOP SCH ×2 (09:43→17:13)
[2016-10-04] MEDS: Linezolid 600 mg in D5W 300 ml 600 MG/300 ML BAG IVPB SCH ×2 (09:44→21:51)
--- NOTE | 2016-10-04 11:29 | CP.PCM.PN ---
Subjective - Date & Time of Evaluation Date of Evaluation: 10/04/16 Time of Evaluation: 11:24 - Subjective Subjective: Appears comfortable, speaking valve in place, good vocalizing. Presently has speech therapy swallow eval. Follow up CXR shows improving expansion of the lower lobes. Small amount of sputum expectorated overnight. Vital signs remain stable, afebrile, adequate oxygenation. Awake, alert, cooperative, well oriented. Neck is supple, tracheostomy stoma clean. Tracheostomy tube intact with Passy Vj valve in place. Pharynx is pink ansd moist. No dullness on percussion of the anterior chest wall. Breath sounds are diminished bilaterally with occasional rhonchi in lower lobes. No audible wheezing or bronchial breathing. Rare dry rales in dependant zones. Heart sounds are distant, rhythm regular, mild tachycardia. Abdomen is soft, PEG tube intact, + BS. No dependant edema of LE's, chronic lymphedema RUE, no cyanosis. Few scattered ecchymoses over trunk and extrems. Diet advanced to regular. Video swallow eval requested. May transfer to telemetry. OOB to chair and bedside cammode. PT/OT as tolerated. Remove PEG after video swallow completed and normal. Objective - Vital Signs/Intake and Output Vital Signs (last 24 hours): Temp Pulse Resp BP Pulse Ox 97.8 F 100 H 21 102/64 92 L 10/04/16 08:00 10/04/16 10:00 10/04/16 10:00 10/04/16 10:00 10/04/16 10:00 Intake and Output: 10/03/16 10/04/16 23:59 11:59 Intake Total 1660 670 Output Total 800 150 Balance 860 520 - Medications Medications: Current Medications Albuterol Sulfate (Albuterol 0.083% Inhal Aby (2.5 Mg/3 Ml) Ud) 2.5 mg INH RQ4 PRN PRN Reason: Shortness of Breath Albuterol/Ipratropium (Duoneb 3 Mg/0.5 Mg (3 Ml) Ud) 3 ml INH RQID [facility] Last Admin: 10/03/16 19:22 Dose: 3 ml Alprazolam (Xanax) 0.5 mg PO Q8 PRN PRN Reason: Agitation Anastrozole (Arimidex 1 Mg Tab) 1 mg PO DAILY [facility] Last Admin: 10/04/16 09:40 Dose: 1 mg Enoxaparin Sodium (Lovenox) 40 mg SC DAILY [facility] PRN Reason: Protocol Last Admin: 10/04/16 09:36 Dose: 40 mg Famotidine (Pepcid) 40 mg PO DAILY [facility] Last Admin: 10/04/16 09:36 Dose: 40 mg Fluticasone Propionate (Flonase) 2 spr VON DAILY [facility] Last Admin: 10/04/16 09:41 Dose: Not Given Gabapentin (Neurontin) 600 mg PO Q8 [facility] Last Admin: 10/04/16 09:36 Dose: 600 mg Ceftazidime 2 gm/ Sodium (Chloride) 100 mls @ 200 mls/hr IVPB Q8 [facility] Last Admin: 10/04/16 09:40 Dose: 200 mls/hr Linezolid (Zyvox 600mg/300ml D5w) 600 mg in 300 mls @ 300 mls/hr IVPB Q12 [facility] Last Admin: 10/04/16 09:44 Dose: 300 mls/hr Clindamycin Phosphate 600 mg/ (Sodium Chloride) 104 mls @ 104 mls/hr IVPB Q8 [facility] Last Admin: 10/04/16 09:40 Dose: 104 mls/hr Methylprednisolone 20 mg/ (Sodium Chloride) 50 mls @ 100 mls/hr IVPB DAILY [facility] Last Admin: 10/04/16 09:35 Dose: 100 mls/hr Lactobacillus Acidophilus (Bacid Acidophilus) 1 cap PO BID [facility] Last Admin: 10/04/16 09:42 Dose: 1 cap Lidocaine (Lidoderm) 1 ea TD DAILY [facility] Last Admin: 10/04/16 09:41 Dose: Not Given Loperamide HCl (Imodium) 2 mg PO Q4 PRN PRN Reason: Diarrhea Last Admin: 10/04/16 09:44 Dose: 2 mg Methimazole (Tapazole) 5 mg PO DAILY [facility] Last Admin: 10/04/16 09:35 Dose: 5 mg Metoprolol Tartrate (Lopressor) 6.25 mg PO Q12 [facility] Last Admin: 10/04/16 09:36 Dose: 6.25 mg Multi-Ingredient Cream (Hydrocerin Cream) 1 applic TOP BID [facility] Last Admin: 10/04/16 09:43 Dose: 1 applic Spironolactone (Aldactone) 25 mg PO DAILY [facility] Last Admin: 10/04/16 09:37 Dose: 25 mg Verapamil HCl (Calan Sr Tab) 120 mg PO DAILY [facility] Last Admin: 10/03/16 08:54 Dose: 120 mg - Labs Labs: 10/03/16 05:30 10/03/16 05:30 PT 11.3 SECONDS (9.6-11.2) H 09/25/16 13:00 INR 1.09 (0.92-1.08) H 09/25/16 13:00 APTT 26.6 SECONDS (23.3-32.5) 09/25/16 13:00 Assessment and Plan (1) Septic shock Status: Resolved (2) Pneumonia Status: Acute (3) Acute and chronic respiratory failure with hypercapnia Status: Chronic (4) Tachyarrhythmia Status: Resolved (5) Hx of breast cancer Status: Inactive (6) Hyperthyroidism Status: Chronic
[2016-10-04] MEDS ORDERED: Albuterol 0.083% Inhal Sol (2.5 mg/3 mL) UD INH PRN (11:34)
[2016-10-04] MEDS ORDERED: Sodium Chloride 3% for Inhalation 4 ML VIAL.NEB IH PRN (11:34)
[2016-10-04] MEDS: Albuterol-Ipratrop 3 mg / 0.5 (3 ml) UD INH SCH ×3 (12:00→20:01)
--- NOTE | 2016-10-04 15:49 | CP.PCM.PN ---
Subjective - Date & Time of Evaluation Date of Evaluation: 10/04/16 Time of Evaluation: 11:30 - Subjective Subjective: Pt feels better no SOB, saturating well on Trach no fever no CP no abd pain small amount of soft stool x 2 this am Tolerating PO diet Objective - Vital Signs/Intake and Output Vital Signs (last 24 hours): Temp Pulse Resp BP Pulse Ox 98.3 F 90 19 92/52 L 93 L 10/04/16 12:00 10/04/16 14:00 10/04/16 14:00 10/04/16 14:00 10/04/16 14:00 Intake and Output: 10/04/16 10/04/16 06:59 18:59 Intake Total 840 1150 Output Total 350 Balance 490 1150 - Medications Medications: Current Medications Albuterol Sulfate (Albuterol 0.083% Inhal Aby (2.5 Mg/3 Ml) Ud) 2.5 mg INH RQ4 PRN PRN Reason: Shortness of Breath Albuterol/Ipratropium (Duoneb 3 Mg/0.5 Mg (3 Ml) Ud) 3 ml INH RQID [facility] Last Admin: 10/04/16 12:00 Dose: 3 ml Alprazolam (Xanax) 0.5 mg PO Q8 PRN PRN Reason: Agitation Anastrozole (Arimidex 1 Mg Tab) 1 mg PO DAILY [facility] Enoxaparin Sodium (Lovenox) 40 mg SC DAILY [facility] PRN Reason: Protocol Famotidine (Pepcid) 40 mg PO DAILY [facility] Fluticasone Propionate (Flonase) 2 spr VON DAILY [facility] Gabapentin (Neurontin) 600 mg PO Q8 [facility] Clindamycin Phosphate 600 mg/ (Sodium Chloride) 104 mls @ 104 mls/hr IVPB Q8 [facility] Ceftazidime 2 gm/ Sodium (Chloride) 100 mls @ 200 mls/hr IVPB Q8 [facility] Methylprednisolone 20 mg/ (Sodium Chloride) 50 mls @ 100 mls/hr IVPB DAILY [facility] Linezolid (Zyvox 600mg/300ml D5w) 600 mg in 300 mls @ 300 mls/hr IVPB Q12 [facility] Lactobacillus Acidophilus (Bacid Acidophilus) 1 cap PO BID [facility] Lidocaine (Lidoderm) 1 ea TD DAILY [facility] Loperamide HCl (Imodium) 2 mg PO Q4 PRN PRN Reason: Diarrhea Methimazole (Tapazole) 5 mg PO DAILY [facility] Metoprolol Tartrate (Lopressor) 6.25 mg PO Q12 [facility] Multi-Ingredient Cream (Hydrocerin Cream) 1 applic TOP BID [facility] Spironolactone (Aldactone) 25 mg PO DAILY [facility] Verapamil HCl (Calan Sr Tab) 120 mg PO DAILY [facility] - Labs Labs: 10/03/16 05:30 10/03/16 05:30 PT 11.3 SECONDS (9.6-11.2) H 09/25/16 13:00 INR 1.09 (0.92-1.08) H 09/25/16 13:00 APTT 26.6 SECONDS (23.3-32.5) 09/25/16 13:00 Assessment and Plan - Assessment and Plan (Free Text) Assessment: 66 y/o female PMH Chronic Respiratory Failure with Trach (placed 07/2016), s/p gastric tube placement , CHF (systolic+diastolic), COPD, bilateral metastatic breast CA to shoulder s/p chemo/rad 8 years ago (s/p humerus resection) with chronic lymphedema RUE, HTN, hyperthyroidism, tachycardia/SVT, R cephalic vein thrombosis, anxiety, brought in by EMS with severe acute respiratory distress associated with altered mental status/confusion from residential. Airleak was present at time of arrival to ER, ABG showed hypercarbia and Trach was changed from uncuffed to cuffed by ER and connected to MV PRVC/ AC mode. Patient found to be tachycardic, tachypneic ,hypotensive , febrile Tmax 103, elevated WBC and CXR showed bilateral infiltrates. She was admitted in ICU in septic shock, started on IVF, pressors and IV antibiotics. Blood cx grew Staph aureus. ID , pulmonary consulted At present she is off pressors and on Trach Collar. Passed Swallow eval - Pureed, nectar thickened- Tolerating PO diet 1.Acute on Chronic Hypercapneic Respiratory Failure -- multifactorial secondary to COPD exacerbation ,HCAP ,pleural effusion and CHF exacerbation Off Vent - on Trach Collar 40-% and tolerating Pulmonary on consult following closely. Trach changed to cuffless Continue Duonebs, IV antibiotics on Solumedrol 20 mg IV daily 2. Septic shock patient was febrile, hypotensive ,tachypneic , tachycardic,with elevated WBC, with AMS,Pneumonia on CXR and positive blood cultures Was on Levophed initially Blood cx positive for Staph aureus . Wound cx positive for Staph aureus ID consulted Continue Fortaz, Linezolid, Clindamycin. removed Tunneled PICC on right chest ( placed in July ) Repeat blood culture with no growth so far 3. Bacteremia Staph aureus positive Continue IV Zyvox discontinued tunneled PICC line that was placed in July 4.Bilateral Small/ moderate pleural effusion CTA showed sm to mod bilateral pleural effusions Pulmonary consulted Continue current management 5. Acute on Chronic Decompensated Systolic and Diastolic Heart Failure With vascular congestion on admission that improved , BNP 7130 LAST ECHO 06/14/2016: Mild to moderate decreased LVEF 40-45%, RV moderately dilated, decreased RV function, Diastolic inflow pattern restrictive Daily weights and Regular diet. Continue Lopressor 6.25mg q12 and Spironolactone 25 mg po daily Monitor for fluid overload, Lasix as necessary 6. PE ruled out CTA neg for PE Dimer elevated in ER 4.9, CTA NEG for PE hx of R cephalic vein thrombosis 7.Elevated Troponin Most likely 2/2 cardiac strain due to prolonged sinus tachycardia Cardiology Consult with Dr. Manuel Luu 8.Sinus Tachycardia/Hx SVT Patient was on Verapamil 180 MG CR-- currently on hold off Cardizem drip on Cardizem PO and lopressor . Monitor Bp closely since is on the lower side 9.Hx Bilateral Mastectomy, breast CA with chronic lymphedema RUE and peripheral neuropathy Continue Arimidex 1 mg po Daily Continue Gabapentin 600 mg po q8h Lidocaine patch 10.Hypertension on Metoprolol and Cardizem 11.Hyperthyroidism TSH normal @ 0.67 Continue Tapazole 5 mg po daily 12. Nutrition Pt has PEG, was on Jevity at 40cc/hr on discharge ( July), however patient has been on regular diet at [place]. On Pureed diet , nectar thickened- Swallow re- eval today - diet ugraded to regular For video Swallow eval in am GI consulted for removal of peg tube - discussed with Dr Villalta- will remove tomorrow afternoon if pt passes Video swallow 13.VTE ppx Lovenox
[2016-10-05] MEDS: Clindamycin 600 MG in Sodium Chloride 0.9% 100 ML IVPB SCH (00:34)
[2016-10-05 05:32] LABS: HEMATOCRIT 36.5 % (34.0-47.0); MEAN CELL VOLUME 95.2 fl (81.0-99.0); MEAN CORPUSCULAR HEMOGLOBIN 30.8 pg (27.0-31.0); MEAN CORPUSCULAR HGB CONC 32.4 g/dL (33.0-37.0); RED CELL DISTRIBUTION WIDTH 16.5 % (11.5-14.5); WHITE BLOOD COUNT 6.5 K/uL (4.8-10.8)
[2016-10-05 05:44] LABS: BLOOD UREA NITROGEN 13 mg/dl (7-17); CALCIUM 8.8 mg/dL (8.4-10.2); CARBON DIOXIDE 30 mmol/L (22-30); CHLORIDE 99 mmol/L (98-107); GFR AFRICAN-AMERICAN > 60; GLUCOSE,RANDOM 108 mg/dL (65-105); POTASSIUM 3.8 MMOL/L (3.6-5.0); SODIUM 136 mmol/l (132-148)
[2016-10-05] MEDS: Albuterol-Ipratrop 3 mg / 0.5 (3 ml) UD INH SCH ×4 (08:14→19:30)
--- NOTE | 2016-10-05 08:45 | CP.PCM.PN ---
Subjective - Date & Time of Evaluation Date of Evaluation: 10/05/16 Time of Evaluation: 08:42 - Subjective Subjective: Doing well on current regimen. Still with abdominal cramping discomfort and loose BM's. Vital signs are stable and she remains afebrile. Well oxygenated, speaking clearly using Passy Vj Valve. Eating regular diet without any problems. Last CXR from 2 days ago was showing continued improvement. Today's labs were all reviewed. Clinically she is unchanged and doing very well. Will discontinue clindamycin now and speak with ID about the other antibiotics as well. She may be transferred to a regular medical floor and begin PT/OT. Modified video swallow planned for today as well. Will ask GI for removal of PEG if the above is OK. Objective - Vital Signs/Intake and Output Vital Signs (last 24 hours): Temp Pulse Resp BP Pulse Ox 97.8 F 84 13 106/62 99 10/05/16 07:42 10/05/16 07:42 10/05/16 07:42 10/05/16 07:42 10/05/16 07:42 Intake and Output: 10/04/16 10/05/16 23:59 11:59 Intake Total 1250 Balance 1250 - Medications Medications: Current Medications Albuterol Sulfate (Albuterol 0.083% Inhal Aby (2.5 Mg/3 Ml) Ud) 2.5 mg INH RQ4 PRN PRN Reason: Shortness of Breath Albuterol/Ipratropium (Duoneb 3 Mg/0.5 Mg (3 Ml) Ud) 3 ml INH RQID [facility] Last Admin: 10/05/16 08:14 Dose: 3 ml Alprazolam (Xanax) 0.5 mg PO Q8 PRN PRN Reason: Agitation Last Admin: 10/04/16 21:54 Dose: 0.5 mg Anastrozole (Arimidex 1 Mg Tab) 1 mg PO DAILY [facility] Enoxaparin Sodium (Lovenox) 40 mg SC DAILY [facility] PRN Reason: Protocol Famotidine (Pepcid) 40 mg PO DAILY [facility] Fluticasone Propionate (Flonase) 2 spr VON DAILY [facility] Gabapentin (Neurontin) 600 mg PO Q8 [facility] Last Admin: 10/05/16 02:00 Dose: Not Given Ceftazidime 2 gm/ Sodium (Chloride) 100 mls @ 200 mls/hr IVPB Q8 [facility] Last Admin: 10/05/16 00:33 Dose: 200 mls/hr Methylprednisolone 20 mg/ (Sodium Chloride) 50 mls @ 100 mls/hr IVPB DAILY [facility] Linezolid (Zyvox 600mg/300ml D5w) 600 mg in 300 mls @ 300 mls/hr IVPB Q12 [facility] Last Admin: 10/04/16 21:51 Dose: 300 mls/hr Lactobacillus Acidophilus (Bacid Acidophilus) 1 cap PO BID [facility] Last Admin: 10/04/16 17:13 Dose: 1 cap Lidocaine (Lidoderm) 1 ea TD DAILY [facility] Loperamide HCl (Imodium) 2 mg PO Q4 PRN PRN Reason: Diarrhea Last Admin: 10/04/16 17:18 Dose: 2 mg Methimazole (Tapazole) 5 mg PO DAILY [facility] Metoprolol Tartrate (Lopressor) 6.25 mg PO Q12 [facility] Last Admin: 10/04/16 21:30 Dose: Not Given Multi-Ingredient Cream (Hydrocerin Cream) 1 applic TOP BID [facility] Last Admin: 10/04/16 17:13 Dose: 1 applic Spironolactone (Aldactone) 25 mg PO DAILY [facility] Verapamil HCl (Calan Sr Tab) 120 mg PO DAILY [facility] - Labs Labs: 10/05/16 04:40 10/05/16 04:40 PT 11.3 SECONDS (9.6-11.2) H 09/25/16 13:00 INR 1.09 (0.92-1.08) H 09/25/16 13:00 APTT 26.6 SECONDS (23.3-32.5) 09/25/16 13:00 Assessment and Plan (1) Septic shock Status: Resolved (2) Pneumonia Status: Resolved (3) Acute and chronic respiratory failure with hypercapnia Status: Chronic (4) Tachyarrhythmia Status: Resolved (5) Hx of breast cancer Status: Inactive (6) Hyperthyroidism Status: Chronic
[2016-10-05] MEDS: methylPREDNISolone 20 MG in Sodium Chloride 0.9% 50 ML IVPB SCH (09:45)
[2016-10-05] MEDS: Linezolid 600 mg in D5W 300 ml 600 MG/300 ML BAG IVPB SCH ×2 (09:45→20:12)
[2016-10-05] MEDS: Verapamil 120 mg ER Tab PO SCH (09:51)
[2016-10-05] MEDS: Lactobacillus Acidophilus 500 MU Cap PO SCH ×2 (09:51→17:37)
[2016-10-05] MEDS: Hydrocerin CREAM TOP SCH ×2 (09:53→17:38)
[2016-10-05] MEDS: Lidocaine 5% Patch TD SCH (09:53)
[2016-10-05] MEDS: Enoxaparin 40 mg Syringe SC SCH (09:54)
[2016-10-05] MEDS: methIMAzole 5 MG TAB PO SCH (09:55)
[2016-10-05] MEDS ORDERED: Barium Sulfate Susp 0.1% w/v, 0.1% w/w 450 mL Bottle PO ONE (11:01)
--- NOTE | 2016-10-05 11:03 | CP.CCUPN ---
CCU Subjective - Physician Review Subjective (Free Text): 10/04/16 The Patient was seen and examined at the bedside, Medical records reviewed, all clinical/lab/hemodynamic/radiographic data were reviewed and management issues were discussed and formulated, Events reviewed Patient tolerating 40% trach collar, SPO2 97%. Speaking valve in place, good vocalizing and able to communicate Comfortable, no complains of any distress On PEG feeding, will be evaluated by speech therapy today. She was OOB to chair for 4 hours yesterday No chest pain, no fever. Awake, follow commands Afebrile overnight Tolerating Regular consistency diet Scheduled for Modified Barium Swallow today CCU Objective - Vital Signs / Intake & Output Vital Signs (Last 4 hours): Vital Signs Temp Pulse Resp BP Pulse Ox 10/05/16 10:00 94 H 21 97/57 L 93 L 10/05/16 09:54 91 H 90/59 L 10/05/16 09:51 82 104/62 10/05/16 08:00 97.8 F 82 15 104/62 97 10/05/16 07:42 97.8 F 84 13 106/62 99 Intake and Output (Last 8hrs): Intake & Output 10/04/16 10/05/16 10/05/16 22:59 06:59 14:59 Intake Total 390 400 Output Total 200 Balance 390 200 Intake: Intake, Piggyback 150 Oral 240 400 Output: Urine 200 Urine, Voided 200 Other: # Voids Urine, Voided 1 1 # Bowel Movements 1 1 1 - Physical Exam Head: Positive for: Atraumatic, Normocephalic Pupils: Positive for: PERRL Extroacular Muscles: Positive for: EOMI Mouth: Positive for: Moist Mucous Membranes Respiratory/Chest: Positive for: Clear to Auscultation Cardiovascular: Positive for: Regular Rate and Rhythm Abdomen: Positive for: Normal Bowel Sounds, Ostomy Tubes (PEG in place). Negative for: Tenderness, Distention Psychiatric: Positive for: Alert - Medications Active Medications: Active Medications Generic Name Dose Route Start Last Admin Trade Name Freq PRN Reason Stop Dose Admin Albuterol Sulfate 2.5 mg 10/04/16 11:34 Albuterol 0.083% Inhal Aby (2.5 Mg/3 Ml) Ud INH RQ4 PRN Shortness of Breath Albuterol/Ipratropium 3 ml 10/04/16 12:00 10/05/16 11:01 Duoneb 3 Mg/0.5 Mg (3 Ml) Ud INH 3 ml RQID ANDREAS Administration Alprazolam 0.5 mg 10/04/16 22:00 10/04/16 21:54 Xanax PO 0.5 mg Q8 PRN Administration Agitation Anastrozole 1 mg 10/05/16 09:00 10/05/16 09:49 Arimidex 1 Mg Tab PO 1 mg DAILY ANDREAS Administration Enoxaparin Sodium 40 mg 10/05/16 09:00 10/05/16 09:54 Lovenox SC 40 mg DAILY ANDREAS Administration Protocol Famotidine 40 mg 10/05/16 09:00 10/05/16 09:55 Pepcid PO 40 mg DAILY ANDREAS Administration Fluticasone Propionate 2 spr 10/05/16 09:00 10/05/16 09:52 Flonase VON 2 spr DAILY ANDRE[facility] Administration Gabapentin 600 mg 10/04/16 17:00 10/05/16 09:55 Neurontin PO 600 mg Q8 ANDREAS Administration Ceftazidime 2 gm/ Sodium 100 mls @ 200 mls/hr 10/04/16 17:00 10/05/16 09:52 Chloride IVPB 200 mls/hr Q8 ANDREAS Administration Methylprednisolone 20 mg/ 50 mls @ 100 mls/hr 10/05/16 09:00 Sodium Chloride IVPB DAILY [facility]RE[facility] Linezolid 600 mg in 300 mls @ 300 mls/hr 10/04/16 21:00 10/04/16 21:51 Zyvox 600mg/300ml D5w IVPB 300 mls/hr Q12 ANDREAS Administration Lactobacillus Acidophilus 1 cap 10/04/16 17:00 10/05/16 09:51 Bacid Acidophilus PO 1 cap BID ANDREAS Administration Lidocaine 1 ea 10/05/16 09:00 10/05/16 09:53 Lidoderm TD 1 ea DAILY ANDRE[facility] Administration Loperamide HCl 2 mg 10/04/16 11:34 10/05/16 09:59 Imodium PO 2 mg Q4 PRN Administration Diarrhea Methimazole 5 mg 10/05/16 09:00 10/05/16 09:55 Tapazole PO 5 mg DAILY ANDRE[facility] Administration Metoprolol Tartrate 6.25 mg 10/04/16 21:00 10/05/16 09:54 Lopressor PO Not Given Q12 ANDRE[facility] Multi-Ingredient Cream 1 applic 10/04/16 17:00 10/05/16 09:53 Hydrocerin Cream TOP 1 applic BID ANDREAS Administration Spironolactone 25 mg 10/05/16 09:00 10/05/16 09:49 Aldactone PO Not Given DAILY ANDREAS Verapamil HCl 120 mg 10/05/16 09:00 10/05/16 09:51 Calan Sr Tab PO Not Given DAILY ANDREAS - Patient Studies Lab Studies: Microbiology Studies 09/29/16 06:00 Blood Culture - Final Blood NO GROWTH AFTER 5 DAYS Gram Stain - Final TEST NOT PERFORMED Lab Studies 10/05/16 10/05/16 Range/Units 04:40 04:40 WBC 6.5 (4.8-10.8) K/uL RBC 3.84 (3.80-5.20) Mil/uL Hgb 11.8 L (12.0-16.0) g/dL Hct 36.5 (34.0-47.0) % MCV 95.2 (81.0-99.0) fl MCH 30.8 (27.0-31.0) pg MCHC 32.4 L (33.0-37.0) g/dL RDW 16.5 H (11.5-14.5) % Plt Count 218 (130-400) K/uL Sodium 136 (132-148) mmol/l Potassium 3.8 (3.6-5.0) MMOL/L Chloride 99 (98-107) mmol/L Carbon Dioxide 30 (22-30) mmol/L Anion Gap 11 (10-20) BUN 13 (7-17) mg/dl Creatinine 0.5 L (0.7-1.2) mg/dL Est GFR ( Amer) > 60 Est GFR (Non-Af Amer) > 60 Random Glucose 108 H (65-105) mg/dL Calcium 8.8 (8.4-10.2) mg/dL Laboratory Results - last 24 hr 10/05/16 10/05/16 04:40 04:40 WBC 6.5 RBC 3.84 Hgb 11.8 L Hct 36.5 MCV 95.2 MCH 30.8 MCHC 32.4 L RDW 16.5 H Plt Count 218 Sodium 136 Potassium 3.8 Chloride 99 Carbon Dioxide 30 Anion Gap 11 BUN 13 Creatinine 0.5 L Est GFR ( Amer) > 60 Est GFR (Non-Af Amer) > 60 Random Glucose 108 H Calcium 8.8 Fingerstick Blood Sugar Results: 284 Critical Care Progress Note - Nutrition Nutrition: Nutrition Category Date Time Status Regular Diet [DIET] Diets 10/04/16 Lunch Active Assessment/Plan (1) Acute respiratory failure with hypercapnia Current Visit: Yes Status: Acute Comment: Secondary to COPD exacerbation, HCAP with small/moderate bilateral pleural effusion and CHF exacerbation S/p Tracheostomy Doing better, Patient tolerating trach collar, no distress Continue IV Antibiotics, steroids, DuoNeb (2) Moderate COPD (chronic obstructive pulmonary disease) Current Visit: Yes Status: Acute Comment: Patient tolerating trach collar, SPO2 97%. Methylprednisolone 20 mg IVPB DAILY Albuterol/Ipratropium (Duoneb) 3 ml INH QID (3) Pneumonia Current Visit: Yes Status: Resolved Priority: High Comment: Continue IV Zyvox, Clindamycin and Ceftazidime (4) Bacteremia Current Visit: No Status: Acute Priority: High Comment: Most recent Blood C/S 09/29, negative x5 days Continue IV Zyvox, Clindamycin and Ceftazidime, followed by ID. (5) Septic shock Current Visit: Yes Status: Resolved Priority: High Comment: Improved, Off pressors VSS. Afebrile Continue IV Zyvox, Clindamycin and Ceftazidime
[2016-10-05] MEDS ORDERED: Sodium Chloride 0.9% 1,000 ML IV SCH (12:45)
--- NOTE | 2016-10-05 13:54 | RAD ---
PROCEDURE: Modified barium swallow study. HISTORY: tracheostomy COMPARISON: None available. TECHNIQUE: Under fluoroscopic guidance, barium meals of various consistency were administered to the patient by the speech pathologist. FINDINGS: There was intermittent superficial penetration with thin barium. No evidence of aspiration. The total fluoroscopic time was 2.05 minutes. IMPRESSION: Intermittent superficial penetration with thin barium. No evidence of aspiration. Please refer to the detailed report and recommendations of the speech pathologist.
[2016-10-05] MEDS ORDERED: Chlorhexidine Gluconate 1 APPL/PKT TP ONE (15:25)
[2016-10-05] MEDS ORDERED: Povidone Iodine Topical 10% Sol ONE (15:28)
[2016-10-05] MEDS ORDERED: Bacitracin/Neomycin/Polymyxin 30GM OINT TOP ONE (15:35)
--- NOTE | 2016-10-05 15:58 | CP.PCM.PN ---
Subjective - Date & Time of Evaluation Date of Evaluation: 10/05/16 Time of Evaluation: 15:55 - Subjective Subjective: Patient eating well and passes swallowing evaluation. Desires PEG to be removed. Objective - Vital Signs/Intake and Output Vital Signs (last 24 hours): Temp Pulse Resp BP Pulse Ox 97.5 F L 98 H 24 99/59 L 92 L 10/05/16 12:00 10/05/16 12:00 10/05/16 12:00 10/05/16 12:00 10/05/16 12:00 Intake and Output: 10/05/16 10/05/16 06:59 18:59 Intake Total 600 Output Total 200 Balance 400 - Medications Medications: Current Medications Albuterol Sulfate (Albuterol 0.083% Inhal Aby (2.5 Mg/3 Ml) Ud) 2.5 mg INH RQ4 PRN PRN Reason: Shortness of Breath Albuterol/Ipratropium (Duoneb 3 Mg/0.5 Mg (3 Ml) Ud) 3 ml INH RQID [facility] Last Admin: 10/05/16 15:54 Dose: 3 ml Alprazolam (Xanax) 0.5 mg PO Q8 PRN PRN Reason: Agitation Last Admin: 10/04/16 21:54 Dose: 0.5 mg Anastrozole (Arimidex 1 Mg Tab) 1 mg PO DAILY [facility] Last Admin: 10/05/16 09:49 Dose: 1 mg Enoxaparin Sodium (Lovenox) 40 mg SC DAILY ANDREAS PRN Reason: Protocol Last Admin: 10/05/16 09:54 Dose: 40 mg Famotidine (Pepcid) 40 mg PO DAILY [facility] Last Admin: 10/05/16 09:55 Dose: 40 mg Fluticasone Propionate (Flonase) 2 spr VON DAILY [facility] Last Admin: 10/05/16 09:52 Dose: 2 spr Gabapentin (Neurontin) 600 mg PO Q8 [facility] Last Admin: 10/05/16 09:55 Dose: 600 mg Ceftazidime 2 gm/ Sodium (Chloride) 100 mls @ 200 mls/hr IVPB Q8 [facility] Last Admin: 10/05/16 09:52 Dose: 200 mls/hr Methylprednisolone 20 mg/ (Sodium Chloride) 50 mls @ 100 mls/hr IVPB DAILY [facility] Last Admin: 10/05/16 09:45 Dose: 100 mls/hr Linezolid (Zyvox 600mg/300ml D5w) 600 mg in 300 mls @ 300 mls/hr IVPB Q12 [facility] Last Admin: 10/05/16 09:45 Dose: 300 mls/hr Sodium Chloride (Sodium Chloride 0.9%) 1,000 mls @ 60 mls/hr IV .[id number] [facility] Stop: 10/06/16 12:31 Last Admin: 10/05/16 12:58 Dose: 60 mls/hr Lactobacillus Acidophilus (Bacid Acidophilus) 1 cap PO BID [facility] Last Admin: 10/05/16 09:51 Dose: 1 cap Lidocaine (Lidoderm) 1 ea TD DAILY [facility] Last Admin: 10/05/16 09:53 Dose: 1 ea Loperamide HCl (Imodium) 2 mg PO Q4 PRN PRN Reason: Diarrhea Last Admin: 10/05/16 09:59 Dose: 2 mg Methimazole (Tapazole) 5 mg PO DAILY [facility] Last Admin: 10/05/16 09:55 Dose: 5 mg Metoprolol Tartrate (Lopressor) 6.25 mg PO Q12 [facility] Last Admin: 10/05/16 09:54 Dose: Not Given Multi-Ingredient Cream (Hydrocerin Cream) 1 applic TOP BID [facility] Last Admin: 10/05/16 09:53 Dose: 1 applic Spironolactone (Aldactone) 25 mg PO DAILY [facility] Last Admin: 10/05/16 09:49 Dose: Not Given Verapamil HCl (Calan Sr Tab) 120 mg PO DAILY [facility] Last Admin: 10/05/16 09:51 Dose: Not Given - Labs Labs: 10/05/16 04:40 10/05/16 04:40 PT 11.3 SECONDS (9.6-11.2) H 09/25/16 13:00 INR 1.09 (0.92-1.08) H 09/25/16 13:00 APTT 26.6 SECONDS (23.3-32.5) 09/25/16 13:00 - Head Exam Head Exam: ATRAUMATIC - Eye Exam Pupil Exam: NORMAL ACCOMODATION - Neck Exam Neck Exam: Full ROM - Respiratory Exam Respiratory Exam: NORMAL BREATHING PATTERN - Cardiovascular Exam Cardiovascular Exam: REGULAR RHYTHM - GI/Abdominal Exam GI & Abdominal Exam: Normal Bowel Sounds Assessment and Plan (1) PEG (percutaneous endoscopic gastrostomy) adjustment/replacement/removal Assessment & Plan: Gastostomy lubricated and area cleaned with [place]. Using traction tube pulled out fairly easily with minimal trauma to tissue. Covered with sterile dressing. May eat in 3 hours Status: Acute
--- NOTE | 2016-10-05 17:07 | CP.PCM.PN ---
Subjective - Date & Time of Evaluation Date of Evaluation: 10/05/16 Time of Evaluation: 12:00 - Subjective Subjective: No fever feels fine tolerating Trach collar denies CP soft stool this am Tolerating PO diet Passed Video swallow eval- PEG to be removed by Dr Villalta today Objective - Vital Signs/Intake and Output Vital Signs (last 24 hours): Temp Pulse Resp BP Pulse Ox 97.5 F L 98 H 24 99/59 L 92 L 10/05/16 12:00 10/05/16 12:00 10/05/16 12:00 10/05/16 12:00 10/05/16 12:00 Intake and Output: 10/05/16 10/05/16 06:59 18:59 Intake Total 600 Output Total 200 Balance 400 - Medications Medications: Current Medications Albuterol Sulfate (Albuterol 0.083% Inhal Aby (2.5 Mg/3 Ml) Ud) 2.5 mg INH RQ4 PRN PRN Reason: Shortness of Breath Albuterol/Ipratropium (Duoneb 3 Mg/0.5 Mg (3 Ml) Ud) 3 ml INH RQID [facility] Last Admin: 10/05/16 15:54 Dose: 3 ml Alprazolam (Xanax) 0.5 mg PO Q8 PRN PRN Reason: Agitation Last Admin: 10/04/16 21:54 Dose: 0.5 mg Anastrozole (Arimidex 1 Mg Tab) 1 mg PO DAILY [facility] Last Admin: 10/05/16 09:49 Dose: 1 mg Enoxaparin Sodium (Lovenox) 40 mg SC DAILY [facility] PRN Reason: Protocol Last Admin: 10/05/16 09:54 Dose: 40 mg Famotidine (Pepcid) 40 mg PO DAILY [facility] Last Admin: 10/05/16 09:55 Dose: 40 mg Fluticasone Propionate (Flonase) 2 spr VON DAILY [facility] Last Admin: 10/05/16 09:52 Dose: 2 spr Gabapentin (Neurontin) 600 mg PO Q8 [facility] Last Admin: 10/05/16 09:55 Dose: 600 mg Ceftazidime 2 gm/ Sodium (Chloride) 100 mls @ 200 mls/hr IVPB Q8 [facility] Last Admin: 10/05/16 09:52 Dose: 200 mls/hr Methylprednisolone 20 mg/ (Sodium Chloride) 50 mls @ 100 mls/hr IVPB DAILY [facility] Last Admin: 10/05/16 09:45 Dose: 100 mls/hr Linezolid (Zyvox 600mg/300ml D5w) 600 mg in 300 mls @ 300 mls/hr IVPB Q12 [facility] Last Admin: 10/05/16 09:45 Dose: 300 mls/hr Sodium Chloride (Sodium Chloride 0.9%) 1,000 mls @ 60 mls/hr IV .[id number] [facility] Stop: 10/06/16 12:31 Last Admin: 10/05/16 12:58 Dose: 60 mls/hr Lactobacillus Acidophilus (Bacid Acidophilus) 1 cap PO BID [facility] Last Admin: 10/05/16 09:51 Dose: 1 cap Lidocaine (Lidoderm) 1 ea TD DAILY [facility] Last Admin: 10/05/16 09:53 Dose: 1 ea Loperamide HCl (Imodium) 2 mg PO Q4 PRN PRN Reason: Diarrhea Last Admin: 10/05/16 09:59 Dose: 2 mg Methimazole (Tapazole) 5 mg PO DAILY [facility] Last Admin: 10/05/16 09:55 Dose: 5 mg Metoprolol Tartrate (Lopressor) 6.25 mg PO Q12 [facility] Last Admin: 10/05/16 09:54 Dose: Not Given Multi-Ingredient Cream (Hydrocerin Cream) 1 applic TOP BID [facility] Last Admin: 10/05/16 09:53 Dose: 1 applic Spironolactone (Aldactone) 25 mg PO DAILY [facility] Last Admin: 10/05/16 09:49 Dose: Not Given Verapamil HCl (Calan Sr Tab) 120 mg PO DAILY [facility] Last Admin: 10/05/16 09:51 Dose: Not Given - Labs Labs: 10/05/16 04:40 10/05/16 04:40 PT 11.3 SECONDS (9.6-11.2) H 09/25/16 13:00 INR 1.09 (0.92-1.08) H 09/25/16 13:00 APTT 26.6 SECONDS (23.3-32.5) 09/25/16 13:00 - Constitutional Appears: Older Than Stated Age, Chronically Ill - Head Exam Head Exam: NORMAL INSPECTION, NORMOCEPHALIC - Eye Exam Eye Exam: EOMI, Normal appearance Pupil Exam: NORMAL ACCOMODATION - ENT Exam ENT Exam: Mucous Membranes Dry, Normal External Ear Exam - Neck Exam Neck Exam: Full ROM. absent: Meningismus + Trach - Respiratory Exam Respiratory Exam: Decreased Breath Sounds, Rales, Rhonchi on Trach collar - Cardiovascular Exam Cardiovascular Exam: REGULAR RHYTHM, +S1, +S2 - GI/Abdominal Exam GI & Abdominal Exam: Soft, Normal Bowel Sounds. absent: Tenderness Additional comments: + PEG - Extremities Exam Extremities Exam: Normal Capillary Refill, Pedal Edema. absent: Calf Tenderness Additional comments: right arm edema - Back Exam Back Exam: Full ROM. absent: CVA tenderness (L), CVA tenderness (R), paraspinal tenderness, vertebral tenderness - Neurological Exam Neurological Exam: Alert, Awake, CN II-XII Intact, Oriented x3 - Psychiatric Exam Psychiatric exam: Normal Affect, Normal Mood - Skin Skin Exam: Dry, Normal Color, Warm Assessment and Plan - Assessment and Plan (Free Text) Assessment: 66 y/o female PMH Chronic Respiratory Failure with Trach (placed 07/2016), s/p gastric tube placement , CHF (systolic+diastolic), COPD, bilateral metastatic breast CA to shoulder s/p chemo/rad 8 years ago (s/p humerus resection) with chronic lymphedema RUE, HTN, hyperthyroidism, tachycardia/SVT, R cephalic vein thrombosis, anxiety, brought in by EMS with severe acute respiratory distress associated with altered mental status/confusion from senior care. Airleak was present at time of arrival to ER, ABG showed hypercarbia and Trach was changed from uncuffed to cuffed by ER and connected to MV PRVC/ AC mode. Patient found to be tachycardic, tachypneic ,hypotensive , febrile Tmax 103, elevated WBC and CXR showed bilateral infiltrates. She was admitted in ICU in septic shock, started on IVF, pressors and IV antibiotics. Blood cx grew Staph aureus. ID , pulmonary consulted At present she is off pressors and on Trach Collar. Passed Swallow eval - Tolerating PO diet . 1.Acute on Chronic Hypercapneic Respiratory Failure -- multifactorial secondary to COPD exacerbation ,HCAP ,pleural effusion and CHF exacerbation Off Vent - on Trach Collar 40-% and tolerating Pulmonary on consult following closely. Trach changed to cuffless Continue Duonebs, IV antibiotics on Solumedrol 20 mg IV daily 2. Septic shock patient was febrile, hypotensive ,tachypneic , tachycardic,with elevated WBC, with AMS,Pneumonia on CXR and positive blood cultures Was on Levophed initially Blood cx positive for Staph aureus . Wound cx positive for Staph aureus ID consulted Continue Fortaz, Linezolid, Clindamycin. removed Tunneled PICC on right chest ( placed in July ) Repeat blood culture with no growth so far 3. Bacteremia Staph aureus positive Continue IV Zyvox discontinued tunneled PICC line that was placed in July 4.Bilateral Small/ moderate pleural effusion CTA showed sm to mod bilateral pleural effusions Pulmonary consulted Continue current management 5. Acute on Chronic Decompensated Systolic and Diastolic Heart Failure With vascular congestion on admission that improved , BNP 7130 LAST ECHO 06/14/2016: Mild to moderate decreased LVEF 40-45%, RV moderately dilated, decreased RV function, Diastolic inflow pattern restrictive Daily weights and Regular diet. Continue Lopressor 6.25mg q12 and Spironolactone 25 mg po daily Monitor for fluid overload, Lasix as necessary 6. PE ruled out CTA neg for PE Dimer elevated in ER 4.9, CTA NEG for PE hx of R cephalic vein thrombosis 7.Elevated Troponin Most likely 2/2 cardiac strain due to prolonged sinus tachycardia Cardiology Consult with Dr. Manuel Luu 8.Sinus Tachycardia/Hx SVT Patient was on Verapamil 180 MG CR-- currently on hold off Cardizem drip on Cardizem PO and lopressor . Monitor Bp closely since is on the lower side 9.Hx Bilateral Mastectomy, breast CA with chronic lymphedema RUE and peripheral neuropathy Continue Arimidex 1 mg po Daily Continue Gabapentin 600 mg po q8h Lidocaine patch 10.Hypertension on Metoprolol and Cardizem 11.Hyperthyroidism TSH normal @ 0.67 Continue Tapazole 5 mg po daily 12. Nutrition Pt has PEG, was on Jevity at 40cc/hr on discharge ( July), however patient has been on regular diet at [place]. diet upgraded to regular Passed video Swallow eval GI consulted for removal of peg tube - discussed with Dr Villalta- will remove PEG today 13.VTE ppx Lovenox
[2016-10-06] MEDS: Albuterol-Ipratrop 3 mg / 0.5 (3 ml) UD INH SCH ×2 (07:55→11:16)
--- NOTE | 2016-10-06 08:21 | CP.PCM.DIS ---
Provider - Provider Date of Admission: 09/25/16 14:49 Attending physician: Josefa Pimentel DO Primary care physician: Dr. Benz Consults: Pulmonary consult cardiology infectious disease Gastroenterology consul Critical care consult interventional radiology consult Time Spent in preparation of Discharge (in minutes): 20 Hospital Course - Lab Results Lab Results: Micro Results 09/29/16 06:00 Blood Blood Culture - Final NO GROWTH AFTER 5 DAYS 09/29/16 06:00 Blood Gram Stain - Final TEST NOT PERFORMED 09/25/16 19:57 Blood-Thru Central Line Blood Culture - Final NO GROWTH AFTER 5 DAYS 09/25/16 19:57 Blood-Thru Central Line Gram Stain - Final TEST NOT PERFORMED 09/25/16 19:57 Arm - Right Gram Stain - Final 09/25/16 19:57 Arm - Right Wound Culture - Final Staphylococcus Aureus 09/25/16 19:57 Naris MRSA Culture (Admit) - Final MRSA NOT DETECTED 09/25/16 19:57 Urine,Gutierrez Urine Culture - Final No Growth (<1,000 CFU/ML) Most Recent Lab Values WBC 6.5 K/uL (4.8-10.8) 10/05/16 04:40 RBC 3.84 Mil/uL (3.80-5.20) 10/05/16 04:40 Hgb 11.8 g/dL (12.0-16.0) L 10/05/16 04:40 Hct 36.5 % (34.0-47.0) 10/05/16 04:40 MCV 95.2 fl (81.0-99.0) 10/05/16 04:40 MCH 30.8 pg (27.0-31.0) 10/05/16 04:40 MCHC 32.4 g/dL (33.0-37.0) L 10/05/16 04:40 RDW 16.5 % (11.5-14.5) H 10/05/16 04:40 Plt Count 218 K/uL (130-400) 10/05/16 04:40 MPV 7.3 fl (7.2-11.7) 09/29/16 04:30 Neut % (Auto) 94.3 % (50.0-75.0) H 09/29/16 04:30 Lymph % (Auto) 2.7 % (20.0-40.0) L 09/29/16 04:30 [place] % (Auto) 2.9 % (0.0-10.0) 09/29/16 04:30 Eos % (Auto) 0.0 % (0.0-4.0) 09/29/16 04:30 Baso % (Auto) 0.1 % (0.0-2.0) 09/29/16 04:30 Neut # 9.3 K/uL (1.8-7.0) H 09/29/16 04:30 Lymph # 0.3 K/uL (1.0-4.3) L 09/29/16 04:30 [place] # 0.3 K/uL (0.0-0.8) 09/29/16 04:30 Eos # 0.0 K/uL (0.0-0.7) 09/29/16 04:30 Baso # 0.0 K/uL (0.0-0.2) 09/29/16 04:30 Neutrophils % (Manual) 96 % (42-75) H 09/29/16 04:30 Band Neutrophils % 2 % (0-2) 09/26/16 05:45 Lymphocytes % (Manual) 3 % (20-50) L 09/29/16 04:30 Monocytes % (Manual) 1 % (0-10) 09/29/16 04:30 Platelet Estimate Normal (NORMAL) 09/29/16 04:30 Plt Clumps, EDTA Present 09/26/16 05:45 Large Platelets Present 09/26/16 05:45 Hypochromasia (manual) Slight 09/27/16 07:20 Poikilocytosis (manual Slight 09/26/16 05:45 Anisocytosis (manual) Slight 09/29/16 04:30 Target Cells Moderate 09/29/16 04:30 Ovalocytes Slight 09/27/16 07:20 Stomatocytes Slight 09/29/16 04:30 PT 11.3 SECONDS (9.6-11.2) H 09/25/16 13:00 INR 1.09 (0.92-1.08) H 09/25/16 13:00 APTT 26.6 SECONDS (23.3-32.5) 09/25/16 13:00 D-Dimer, Quantitative 4.90 mg/L FEU (0-0.50) H 09/25/16 13:00 pCO2 46 mm/Hg (35-45) H 10/02/16 05:07 pO2 86 mm/Hg (80-100) 10/02/16 05:07 HCO3 41.4 mmol/L (21-28) H* 10/02/16 05:07 ABG pH 7.60 (7.35-7.45) H 10/02/16 05:07 ABG Total CO2 46.6 mmol/L (22-28) H 10/02/16 05:07 ABG O2 Saturation 98.2 % (95-98) H 10/02/16 05:07 ABG O2 Content 15.3 ML/dL (15-23) 10/02/16 05:07 ABG Base Excess 21.2 mmol/L (-2.0-3.0) H 10/02/16 05:07 ABG Hemoglobin 11.4 g/dL (11.7-17.4) L 10/02/16 05:07 ABG Carboxyhemoglobin 1.7 % (0.5-1.5) H 10/02/16 05:07 POC ABG HHb (Measured) 1.7 % (0.0-5.0) 10/02/16 05:07 ABG Methemoglobin 2.0 % (0.0-3.0) 10/02/16 05:07 ABG O2 Capacity 15.6 mL/dL (16-24) L 10/02/16 05:07 Tawanda Test Yes 10/02/16 05:07 ABG Potassium 5.2 mmol/L (3.6-5.2) 09/25/16 12:49 A-a O2 Difference 142.0 mm/Hg 10/02/16 05:07 Hgb O2 Saturation 94.6 % (95.0-98.0) L 10/02/16 05:07 Sodium 131.0 mmol/L (132-148) L 09/25/16 12:49 Chloride 104.0 mmol/L (98-107) 09/25/16 12:49 Glucose 392 mg/dL (65-105) H 09/25/16 12:49 Lactate 1.4 mmol/L (0.7-2.1) 09/25/16 12:49 Vent Mode Cpap 10/02/16 05:07 Mechanical Rate 14 09/27/16 06:05 FiO2 40.0 % 10/02/16 05:07 Tidal Volume 400 09/27/16 06:05 PEEP 8 10/02/16 05:07 Pressure Support 10 10/02/16 05:07 CPAP 5 09/28/16 04:59 Blood Gas Comments Prvc/ac20/vt400/100/5peep 09/25/16 14:05 Crit Value Called To Dr nanda parks 10/02/16 05:07 Crit Value Called By Salvador 10/02/16 05:07 Crit Value Read Back Y 10/02/16 05:07 Blood Gas Notified Time 509 10/02/16 05:07 Sodium 136 mmol/l (132-148) 10/05/16 04:40 Potassium 3.8 MMOL/L (3.6-5.0) 10/05/16 04:40 Chloride 99 mmol/L (98-107) 10/05/16 04:40 Carbon Dioxide 30 mmol/L (22-30) 10/05/16 04:40 Anion Gap 11 (10-20) 10/05/16 04:40 BUN 13 mg/dl (7-17) 10/05/16 04:40 Creatinine 0.5 mg/dL (0.7-1.2) L 10/05/16 04:40 Est GFR ( Amer) > 60 10/05/16 04:40 Est GFR (Non-Af Amer) > 60 10/05/16 04:40 POC Glucose (mg/dL) 213 mg/dL (65-110) H 09/25/16 16:54 Random Glucose 108 mg/dL (65-105) H 10/05/16 04:40 Lactic Acid 1.3 MMOL/L (0.7-2.1) 09/25/16 19:57 Calcium 8.8 mg/dL (8.4-10.2) 10/05/16 04:40 Phosphorus 4.1 mg/dl (2.5-4.5) 09/26/16 05:45 Magnesium 2.0 MG/DL (1.6-2.3) 09/26/16 05:45 Total Bilirubin 0.3 mg/dl (0.2-1.3) 10/01/16 05:00 AST 23 U/L (14-36) 10/01/16 05:00 ALT 111 U/L (9-52) H D 10/01/16 05:00 Alkaline Phosphatase 74 U/L (38-126) 10/01/16 05:00 Troponin I 0.0760 ng/mL (0.00-0.120) 09/26/16 15:30 NT-Pro-B Natriuret Pep 7130 pg/ml (0-900) H 09/25/16 13:00 Total Protein 5.3 G/DL (6.3-8.2) L 10/01/16 05:00 Albumin 2.9 g/dL (3.5-5.0) L 10/01/16 05:00 Globulin 2.4 gm/dL (2.2-3.9) 10/01/16 05:00 Albumin/Globulin Ratio 0.0 (1.0-2.1) L 10/01/16 05:00 Procalcitonin < 0.05 NG/ML (0.19-0.49) L 09/25/16 13:00 TSH 3rd Generation 0.67 mIU/ML (0.46-4.68) 09/26/16 05:45 Arterial Blood Potassium 5.2 mmol/L (3.6-5.2) 09/25/16 12:49 Urine Color Yellow (YELLOW) 09/26/16 16:00 Urine Clarity Slighty-cloudy (Clear) 09/26/16 16:00 Urine pH 5.0 (5.0-8.0) 09/26/16 16:00 Ur Specific [place] 1.020 (1.003-1.030) 09/26/16 16:00 Urine Protein 30 mg/dL (NEGATIVE) 09/26/16 16:00 Urine Glucose (UA) 150 mg/dL (Normal) 09/26/16 16:00 Urine Ketones Negative mg/dL (NEGATIVE) 09/26/16 16:00 Urine Blood Negative (NEGATIVE) 09/26/16 16:00 Urine Nitrate Negative (NEGATIVE) 09/26/16 16:00 Urine Bilirubin Negative (NEGATIVE) 09/26/16 16:00 Urine Urobilinogen 0.2-1.0 mg/dL (0.2-1.0) 09/26/16 16:00 Ur Leukocyte Esterase Neg Ben/uL (Negative) 09/26/16 16:00 Urine RBC (Auto) 1 /hpf (0-3) 09/26/16 16:00 Urine WBC Clumps (Auto) Mod /hpf (NONE) H 09/25/16 14:00 Urine Microscopic WBC 11 /hpf (0-5) H 09/26/16 16:00 Ur Squamous Epith Cells 1 /hpf (0-5) 09/26/16 16:00 Urine Bacteria Rare (<OCC) 09/26/16 16:00 Hyaline Casts 6-10 /hpf (0-2) H 09/25/16 14:00 Urine Yeast (Budding) Occ /hpf (NEGATIVE) H 09/25/16 14:00 Influenza Typ A,B (EIA) Negative for flu a/b (NEGATIVE) 09/25/16 13:15 - Hospital Course Hospital Course: 66 y/o female PMH Chronic Respiratory Failure with Trach (placed 07/2016), s/p gastric tube placement , CHF (systolic+diastolic), COPD, bilateral metastatic breast CA to shoulder s/p chemo/rad 8 years ago (s/p humerus resection) with chronic lymphedema RUE, HTN, hyperthyroidism, tachycardia/SVT, R cephalic vein thrombosis, anxiety, brought in by EMS with severe acute respiratory distress associated with altered mental status/confusion from assisted. Air leak was present at time of arrival to ER, ABG showed hypercarbia and Trach was changed from uncuffed to cuffed by ER and connected to MV PRVC/ AC mode. Patient found to be tachycardic, tachypneic ,hypotensive , febrile Tmax 103, elevated WBC and CXR showed bilateral infiltrates. She was admitted in ICU in septic shock, started on IVF, pressors and IV antibiotics. Blood cx grew Staph aureus. ID , pulmonary consulted.She was treated with IV fortaz, Zyvox and Clindamycin for 11 days . Clinically patient improved. Her central venous catheter was removed and repeat blood cultures were with no growth. Her trache was changed to smaller size and cuffless .She passed the video swallow exam and started on PO intake and tolerating well At present she is hemodynamically stable, afebrile , on trache collar with FIO2 35 % saturating 100 % Will d/c all antibiotics ad discharge patient to [facility] to continue physical therapy 1.Acute on Chronic Hypercapneic Respiratory Failure -- multifactorial secondary to COPD exacerbation ,HCAP ,pleural effusion and CHF exacerbation on Trach Collar 35 % and saturating 100 % Pulmonary was consulted Trach changed to cuffless Continue Duonebs, will d/c IV antibiotics will continue prednisone 10 mg po daily 2. Septic shock patient was febrile, hypotensive ,tachypneic , tachycardic,with elevated WBC, with AMS,Pneumonia on CXR and positive blood cultures Was on Levophed initially Blood cx positive for Staph aureus . Wound cx positive for Staph aureus ID consulted received Fortaz, Linezolid, Clindamycin x 11 days removed Tunneled PICC on right chest ( placed in July ) Repeat blood culture with no growth so far will d/c antibiotics 3. Bacteremia Staph aureus positive received IV Zyvox discontinued tunneled PICC line that was placed in July 4.Bilateral Small/ moderate pleural effusion CTA showed sm to mod bilateral pleural effusions Pulmonary consulted Continue current management 5. Acute on Chronic Decompensated Systolic and Diastolic Heart Failure With vascular congestion on admission that improved , BNP 7130 LAST ECHO 06/14/2016: Mild to moderate decreased LVEF 40-45%, RV moderately dilated, decreased RV function, Diastolic inflow pattern restrictive Daily weights and Regular diet. Continue Lopressor 6.25mg q12 and Spironolactone 25 mg po daily Monitor for fluid overload, Lasix as necessary 6. PE ruled out CTA neg for PE Dimer elevated in ER 4.9, CTA NEG for PE hx of R cephalic vein thrombosis 7.Elevated Troponin Most likely 2/2 cardiac strain due to prolonged sinus tachycardia Cardiology Consult with Dr. Manuel Luu appreciated 8.Sinus Tachycardia/Hx SVT Patient was on Verapamil 180 MG CR-- currently on hold off Cardizem drip on verapamil , spironolactone and lopressor 9.Hx Bilateral Mastectomy, breast CA with chronic lymphedema RUE and peripheral neuropathy Continue Arimidex 1 mg po Daily Continue Gabapentin 600 mg po q8h Lidocaine patch 10.Hypertension on Metoprolol 11.Hyperthyroidism TSH normal @ 0.67 Continue Tapazole 5 mg po daily 12. Nutrition passed video swallow eval removed peg Continue cardiac diet 13.VTE ppx Lovenox Discharge Exam - Head Exam Head Exam: ATRAUMATIC, NORMOCEPHALIC - Eye Exam Eye Exam: EOMI, Normal appearance, PERRL Pupil Exam: NORMAL ACCOMODATION - ENT Exam ENT Exam: Mucous Membranes Moist, Normal Exam - Neck Exam Neck exam: Normal Inspection Additional comments: anterior neck trache in place - Respiratory Exam Respiratory Exam: Decreased Breath Sounds (bibasilar ), Clear to PA & Lateral. absent: Wheezes Additional comments: coarse breath sounds - Cardiovascular Exam Cardiovascular Exam: REGULAR RHYTHM, RRR, +S1, +S2. absent: JVD - GI/Abdominal Exam GI & Abdominal Exam: Normal Bowel Sounds, Soft. absent: Distended, Guarding, Rebound, Tenderness - Rectal Exam Rectal Exam: Deferred - Extremities Exam Extremities exam: normal capillary refill, normal inspection, pedal pulses present Additional comments: right upper extremity lymhedema - Back Exam Back exam: NORMAL INSPECTION - Neurological Exam Neurological exam: Alert, Oriented x3 Additional comments: right facial droop - Psychiatric Exam Psychiatric exam: Normal Affect, Normal Mood - Skin Skin Exam: Dry, Warm Additional comments: multiple upper extremity echymotic areas bilateral LE below knees abrasions Discharge Plan - Follow Up Plan Condition: GUARDED Disposition: REHAB FACILITY/REHAB UNIT Patient education suggested?: Yes Referrals: Bala eBnz MD [Staff Provider] - Clinical Quality Measures - CQM - Heart Failure Ejection Fraction: 40 % or Greater Left Ventricular Function to be assessed after discharge: No LUCIA Inhibitor Prescribed: No Contraindication/Reason for not providing: low BP Beta-Vivian Prescribed: None (metoprolol tartrate) Contraindication/Reason for not providing: already on Metoprolol tartrate Angiotensin II Receptor Vivian Prescribed: No Contraindication/Reason for not providing: low BP Aldosterone Antagonist Prescribed: Yes Will be discharged to: Alf Facility - Date & Time of Discharge Summary Date of Discharge Summary: 10/06/16
--- NOTE | 2016-10-06 08:53 | CP.PCM.PN ---
Subjective - Date & Time of Evaluation Date of Evaluation: 10/06/16 Time of Evaluation: 08:49 - Subjective Subjective: Medical record reviewed. Patient has remained stable on current regimen. Antibiotics have been given for 10+ days now. Swallow eval was successfully completed. PEG tube removed. Eating regular dietr w/o incident. Trach tube (#6 cuffless) with [place] valve in place. Comfortable, good speech. Feels well, in no distress. Unable to transfer to regular medical floor; no beds. Will D/C remaining antibiotics and solumedrol. Agree with plan for discharge back to [place]. Objective - Vital Signs/Intake and Output Vital Signs (last 24 hours): Temp Pulse Resp BP Pulse Ox 97.9 F 82 19 103/67 96 10/06/16 08:36 10/06/16 08:36 10/06/16 08:36 10/06/16 08:36 10/06/16 08:36 Intake and Output: 10/05/16 10/06/16 23:59 11:59 Intake Total 1100 40 Output Total 300 400 Balance 800 -360 - Medications Medications: Current Medications Albuterol Sulfate (Albuterol 0.083% Inhal Aby (2.5 Mg/3 Ml) Ud) 2.5 mg INH RQ4 PRN PRN Reason: Shortness of Breath Albuterol/Ipratropium (Duoneb 3 Mg/0.5 Mg (3 Ml) Ud) 3 ml INH RQID [facility] Last Admin: 10/06/16 07:55 Dose: 3 ml Alprazolam (Xanax) 0.5 mg PO Q8 PRN PRN Reason: Agitation Last Admin: 10/04/16 21:54 Dose: 0.5 mg Anastrozole (Arimidex 1 Mg Tab) 1 mg PO DAILY [facility] Last Admin: 10/05/16 09:49 Dose: 1 mg Enoxaparin Sodium (Lovenox) 40 mg SC DAILY ANDREAS PRN Reason: Protocol Last Admin: 10/05/16 09:54 Dose: 40 mg Famotidine (Pepcid) 40 mg PO DAILY [facility] Last Admin: 10/05/16 09:55 Dose: 40 mg Fluticasone Propionate (Flonase) 2 spr VON DAILY [facility] Last Admin: 10/05/16 09:52 Dose: 2 spr Gabapentin (Neurontin) 600 mg PO Q8 [facility] Last Admin: 10/06/16 00:19 Dose: 600 mg Ceftazidime 2 gm/ Sodium (Chloride) 100 mls @ 200 mls/hr IVPB Q8 [facility] Last Admin: 10/06/16 00:18 Dose: 200 mls/hr Methylprednisolone 20 mg/ (Sodium Chloride) 50 mls @ 100 mls/hr IVPB DAILY [facility] Last Admin: 10/05/16 09:45 Dose: 100 mls/hr Linezolid (Zyvox 600mg/300ml D5w) 600 mg in 300 mls @ 300 mls/hr IVPB Q12 [facility] Last Admin: 10/05/16 20:12 Dose: 300 mls/hr Sodium Chloride (Sodium Chloride 0.9%) 1,000 mls @ 60 mls/hr IV .[id number] [facility] Stop: 10/06/16 12:31 Last Admin: 10/05/16 12:58 Dose: 60 mls/hr Lactobacillus Acidophilus (Bacid Acidophilus) 1 cap PO BID [facility] Last Admin: 10/05/16 17:37 Dose: 1 cap Lidocaine (Lidoderm) 1 ea TD DAILY [facility] Last Admin: 10/05/16 09:53 Dose: 1 ea Loperamide HCl (Imodium) 2 mg PO Q4 PRN PRN Reason: Diarrhea Last Admin: 10/05/16 09:59 Dose: 2 mg Methimazole (Tapazole) 5 mg PO DAILY [facility] Last Admin: 10/05/16 09:55 Dose: 5 mg Metoprolol Tartrate (Lopressor) 6.25 mg PO Q12 [facility] Last Admin: 10/05/16 20:14 Dose: 6.25 mg Multi-Ingredient Cream (Hydrocerin Cream) 1 applic TOP BID [facility] Last Admin: 10/05/16 17:38 Dose: 1 applic Spironolactone (Aldactone) 25 mg PO DAILY [facility] Last Admin: 10/05/16 09:49 Dose: Not Given Verapamil HCl (Calan Sr Tab) 120 mg PO DAILY [facility] Last Admin: 10/05/16 09:51 Dose: Not Given - Labs Labs: 10/05/16 04:40 10/05/16 04:40 PT 11.3 SECONDS (9.6-11.2) H 09/25/16 13:00 INR 1.09 (0.92-1.08) H 09/25/16 13:00 APTT 26.6 SECONDS (23.3-32.5) 09/25/16 13:00 Assessment and Plan (1) Septic shock Status: Resolved (2) Pneumonia Status: Resolved (3) Acute and chronic respiratory failure with hypercapnia Status: Chronic (4) Tachyarrhythmia Status: Resolved (5) Hx of breast cancer Status: Inactive (6) Hyperthyroidism Status: Chronic
[2016-10-06] MEDS: Lactobacillus Acidophilus 500 MU Cap PO SCH (09:44)
[2016-10-06] MEDS: Verapamil 120 mg ER Tab PO SCH (09:45)
[2016-10-06] MEDS: Linezolid 600 mg in D5W 300 ml 600 MG/300 ML BAG IVPB SCH (09:50)
[2016-10-06] MEDS: methIMAzole 5 MG TAB PO SCH (09:51)
[2016-10-06] MEDS: Enoxaparin 40 mg Syringe SC SCH (09:51)
[2016-10-06] MEDS: Hydrocerin CREAM TOP SCH (09:52)
[2016-10-06] MEDS: Lidocaine 5% Patch TD SCH (09:52)
[2016-10-06] MEDS: methylPREDNISolone 20 MG in Sodium Chloride 0.9% 50 ML IVPB SCH (10:00)
[2016-10-06 12:24] VITALS: TEMP 97.6
[2016-10-06 16:19] VITALS: BP 99/59; PULSE 86; RESP 12; O2SAT 97
== END 2016-10-06 15:15 | DRG 871 ==
LOC: H.ER 12:36 → H.ERHOLD 14:49 → H.ICU/CCU 16:25
PROVIDERS: ADMIT Student in an Organized Health Care Education/Training Program; ATTEND Student in an Organized Health Care Education/Training Program
PROC: 0B21XFZ Change Tracheostomy Device in Trachea, External Approach (ICD-10-PCS; principal; 2016-09-25)
PROC: 5A1945Z Respiratory Ventilation, 24-96 Consecutive Hours (ICD-10-PCS; 2016-09-25)
PROC: 05PYX3Z Removal of Infusion Device from Upper Vein, External Approach (ICD-10-PCS; 2016-09-29)
PROC: 0B21XFZ Change Tracheostomy Device in Trachea, External Approach (ICD-10-PCS; 2016-10-02)
DX: A41.01 Sepsis due to Methicillin susceptible Staphylococcus aureus (principal); J96.21 Acute and chronic respiratory failure with hypoxia; R65.21 Severe sepsis with septic shock; I50.43 Acute on chronic combined systolic (congestive) and diastolic (congestive) heart failure; G93.41 Metabolic encephalopathy; J18.9 Pneumonia, unspecified organism; I11.0 Hypertensive heart disease with heart failure; J96.22 Acute and chronic respiratory failure with hypercapnia; E87.4 Mixed disorder of acid-base balance; K56.7 Ileus, unspecified; J44.0 Chronic obstructive pulmonary disease with (acute) lower respiratory infection; I47.1 Supraventricular tachycardia; B37.49 Other urogenital candidiasis; J93.82 Other air leak; J44.1 Chronic obstructive pulmonary disease with (acute) exacerbation; Z43.1 Encounter for attention to gastrostomy; A41.9 Sepsis, unspecified organism; D63.8 Anemia in other chronic diseases classified elsewhere; G62.9 Polyneuropathy, unspecified; E05.90 Thyrotoxicosis, unspecified without thyrotoxic crisis or storm; F41.9 Anxiety disorder, unspecified; J45.909 Unspecified asthma, uncomplicated; M81.0 Age-related osteoporosis without current pathological fracture; Y95 Nosocomial condition; Z85.3 Personal history of malignant neoplasm of breast; Z96.611 Presence of right artificial shoulder joint; I89.0 Lymphedema, not elsewhere classified; J40 Bronchitis, not specified as acute or chronic; E87.6 Hypokalemia

== ENCOUNTER 2016-11-04 05:56 | Day surgery (SDC) | payer MEDICARE, BC ==
[2016-11-04 06:31] VITALS: O2SAT 95
[2016-11-04] MEDS ORDERED: Lactated Ringer's 1,000 ML IV ONE (06:46)
[2016-11-04 06:47] VITALS: BMI 18.6
[2016-11-04] MEDS ORDERED: Propofol 10 mg/ml Inj (20 ML) ONE (07:26)
--- NOTE | 2016-11-04 07:35 | CP.SDSHP ---
Same Day Surgery H & P - History Proposed Procedure: Removal of tracheostomy Pre-Op Diagnosis: tracheostomy - Previous Medical/Surgical History Cardiac: Hypertension Pulmonary: Asthma, Emphysema/COPD, Smoking Endocrine/Metabolic: Thyroid Disease Pain: 0. No Pain Previous Surgical History: I&D buccal abscess. Mastectomy. Removal of hardware from RUE. - Allergies Allergies: Allergies paper tape Allergy (Uncoded 06/03/16 21:31) RASH - Physical Exam Vital Signs: Vital Signs 11/04/16 11/04/16 11/04/16 06:30 06:34 06:39 Temperature 97.9 F Pulse Rate 104 H 104 H 104 H Respiratory 20 Rate Blood Pressure 140/67 O2 Sat by Pulse 95 Oximetry Mental Status: Alert & Oriented x3 Neuro: WNL Heart: WNL Lungs: Other (diminished breath sounds bilaterally. Tracheostomy in situ.) GI: Other (PEG) - Impression Pt. Evaluated Today:Candidate for Anesthesia & Procedure: Yes - Date & Time Date: 11/04/16 Time: 07:38 Short Stay Discharge - Short Stay Discharge Admitting Diagnosis/Reason for Visit: Z93.0 Disposition: HOME/ ROUTINE Referrals: Bala Benz MD [Primary Care Provider] -
[2016-11-04] MEDS ORDERED: Lidocaine 1% Inj (20ml) ONE (07:57)
--- NOTE | 2016-11-04 08:29 | PCM.SURG1 ---
Surgeon's Initial Post Op Note - Surgeon's Notes Surgeon: Manuel Benz MD [employer] Operations Officer: none Type of Anesthesia: None Pre-Operative Diagnosis: Tracheostomy in situ Operative Findings: Tracheostomy tube was removed from the airway without difficulty. Stoma was clean and dry. Airway was suctioned with a small amount of florez, thin secretions obtained. Stoma was cleaned and a large band-aid was applied to cover the stoma. Patient was awake and comfortable during the entire procedure. Post-Operative Diagnosis: S/A Operation Performed: Removal of tracheostomy tube. Specimen/Specimens Removed: none Estimated Blood Loss: EBL {In ML}: 0 Blood Products Given: N/A Drains Used: No Drains Post-Op Condition: Good Date of Surgery/Procedure: 11/04/16 Time of Surgery/Procedure: 08:00
[2016-11-04 10:27] VITALS: BP 120/50; PULSE 98; RESP 18; TEMP 98
--- NOTE | 2016-11-04 12:51 | CP.SDSHP ---
Same Day Surgery H & P - Allergies Allergies: Allergies paper tape Allergy (Uncoded 06/03/16 21:31) RASH - Physical Exam Vital Signs: Vital Signs 11/04/16 11/04/16 11/04/16 06:30 06:34 06:39 Temperature 97.9 F Pulse Rate 104 H 104 H 104 H Respiratory 20 Rate Blood Pressure 140/67 O2 Sat by Pulse 95 Oximetry 11/04/16 11/04/16 11/04/16 08:05 08:10 08:32 Temperature 97.4 F L 97.2 F L 98.3 F Pulse Rate 103 H 105 H 99 H Respiratory 20 18 20 Rate Blood Pressure 139/65 132/62 123/51 L O2 Sat by Pulse 95 94 L 95 Oximetry 11/04/16 10:00 Temperature 98 F Pulse Rate 98 H Respiratory 18 Rate Blood Pressure 120/50 L O2 Sat by Pulse 95 Oximetry Short Stay Discharge - Short Stay Discharge Admitting Diagnosis/Reason for Visit: Z93.0 Disposition: TRANSF TO [facility] Referrals: Bala Benz MD [Primary Care Provider] - Follow-up: Next week, Tuesday. Additional Instructions (Diet, Activity): Keep a clean band aid over the stoma, Change daily until closed. Progress Note/Discharge Note with Instructions: No adverse effects of decanulation. Stable for discharge back to [place].
== END 2016-11-04 10:28 ==
LOC: H.OPSURG 05:56
PROVIDERS: ATTEND Internal Medicine Pulmonary Disease
DX: Z93.0 Tracheostomy status (principal); I10 Essential (primary) hypertension; J44.9 Chronic obstructive pulmonary disease, unspecified; J45.909 Unspecified asthma, uncomplicated; E07.9 Disorder of thyroid, unspecified
CPT/HCPCS: 31820; J2001; J2704; J7120

== ENCOUNTER 2016-11-09 18:28 | Inpatient (IN) | payer MEDICARE, BC ==
[2016-11-09 18:28] VITALS: BMI 18.6
[2016-11-09] MEDS ORDERED: Sodium Chloride 0.9% 250 ML IV STA (19:23)
[2016-11-09 19:31] LABS: BASO % 0.1 % (0.0-2.0); HEMOGLOBIN 13.6 g/dL (12.0-16.0); LYMPH # 0.8 K/uL (1.0-4.3); LYMPH % 3.6 % (20.0-40.0); MEAN CELL VOLUME 91.8 fl (81.0-99.0); MEAN CORPUSCULAR HEMOGLOBIN 29.2 pg (27.0-31.0); MEAN CORPUSCULAR HGB CONC 31.8 g/dL (33.0-37.0); MEAN PLATELET VOLUME 7.8 fl (7.2-11.7); MONO # 0.9 K/uL (0.0-0.8); MONO % 3.9 % (0.0-10.0); NEUT # 20.6 K/uL (1.8-7.0); NEUT % 92.4 % (50.0-75.0); PLATELET COUNT 249 K/uL (130-400); RBC 4.65 Mil/uL (3.80-5.20); RED CELL DISTRIBUTION WIDTH 15.4 % (11.5-14.5); WHITE BLOOD COUNT 22.3 K/uL (4.8-10.8)
[2016-11-09 19:33] LABS: ABG ALLEN TEST YES; ARTERIAL BLOOD GAS HCO3 27.9 mmol/L (21-28); ARTERIAL BLOOD GAS O2 SAT 94.7 % (95-98); ARTERIAL BLOOD GAS PCO2 41 mm/Hg (35-45); ARTERIAL BLOOD GAS PH 7.45 (7.35-7.45); ARTERIAL BLOOD GAS PO2 57 mm/Hg (80-100); ARTERIAL BLOOD GAS TCO2 29.8 mmol/L (22-28)
[2016-11-09] MEDS ORDERED: Piperacillin/Tazobact 3.375 GM in Sodium Chloride 0.9% 100 ML IV STA (19:51)
[2016-11-09 19:55] LABS: ALB/GLOB RATIO 1.3 (1.0-2.1); ALBUMIN 3.5 g/dL (3.5-5.0); ALT/SGPT 78 U/L (9-52); AST/SGOT 63 U/L (14-36); BLOOD UREA NITROGEN 16 mg/dl (7-17); CALCIUM 9.7 mg/dL (8.4-10.2); GFR AFRICAN-AMERICAN > 60; GFR NON-AFRICAN AMERICAN > 60; LIPASE 15 U/L (23-300); MAGNESIUM 1.4 MG/DL (1.6-2.3)
[2016-11-09] MEDS ORDERED: Piperacillin/Tazobact 3.375 gm Inj IVPB ONE (20:00)
[2016-11-09] MEDS ORDERED: Vancomycin 1 g Inj ONE (20:00)
[2016-11-09 20:06] LABS: B-TYPE NATRIURETIC PEPTIDE 9790 pg/ml (0-900)
[2016-11-09] MEDS ORDERED: Sodium Chloride 0.9% 750 ML IV STA (20:29)
--- NOTE | 2016-11-09 20:38 | ED PDOC ---
Past Medical History Vital Signs: Last Vital Signs Temp 98.7 F 11/09/16 20:21 Pulse 116 H 11/09/16 19:56 Resp 22 11/09/16 19:56 BP 92/53 L 11/09/16 19:56 Pulse Ox 96 11/09/16 19:56 - Medical History PMH: Anemia, Anxiety, Arthritis, Asthma, Cardia Arrhythmia, COPD, Fractures, Gall Bladder Disease, HTN, Hyperthyroidism (on methimazole), Hypothyroidism, Malignancy (breast CA), Osteoporosis, Pneumonia Denies: HIV, Chronic Kidney Disease - Family History Family History: States: Unknown Family Hx - Home Medications Home Medications: Ambulatory Orders Medication Instructions Recorded predniSONE [predniSONE Tab] 10 mg PO DAILY 09/25/16 Albuterol 0.083% [Albuterol 0.083% 2.5 mg INH RQ4 PRN 10/06/16 Inhal Aby (2.5 mg/3 ml) UD] Albuterol/Ipratropium [Duoneb 3 3 ml INH RQID 10/06/16 mg/0.5 mg (3 ml) UD] Fluticasone Propionate [Flonase] 2 spr VON DAILY bottle 10/06/16 Gabapentin [Neurontin] 600 mg PO Q8 tab 10/06/16 Lidocaine 5% [Lidoderm] 1 ea TD DAILY patch 10/06/16 Metoprolol Tartrate [Lopressor] 6.25 mg PO Q12 tab 10/06/16 Spironolactone [Aldactone] 25 mg PO DAILY tab 10/06/16 Famotidine [Pepcid] 40 mg PO DAILY 11/04/16 Magnesium Hydroxide [Milk Of 30 ml PO DAILY PRN 11/04/16 Magnesia] - Allergies Allergies/Adverse Reactions: Allergies Allergy/AdvReac Type Severity Reaction Status Date / Time paper tape Allergy RASH Uncoded 11/09/16 18:30 - Laboratory Results Result Diagrams: 11/09/16 19:16 - ECG O2 Sat by Pulse Oximetry: 96
--- NOTE | 2016-11-09 20:42 | ED PDOC ---
HPI: General Adult Time Seen by Provider: 11/09/16 18:40 Chief Complaint (Nursing): Fever Chief Complaint (Provider): Fever History Per: Patient, Other (retirement records) History/Exam Limitations: no limitations Onset/Duration Of Symptoms: Hrs Current Symptoms Are (Timing): Still Present Additional History Per: Prison Additional Complaint(s): The pt is a 66yo female, sent by her retirement for evaluation of fever; pt reports she woke up at 3-4am this morning and felt hot, states her bones were hurting, prompting her visit to the ED. She denies any specific complaints; denies any increase in cough, any diarrhea, rash, or other infectious symptoms. Pt was recently in hospital for respiratory failure and septic shock; pt had prolonged course involving multiple IV antibiotics and was discharged to retirement at the end of September. She offers no additional medical complaints. Past Medical History Reviewed: Historical Data, Nursing Documentation, Vital Signs Vital Signs: Last Vital Signs Temp 97.5 F L 11/12/16 15:51 Pulse 104 H 11/12/16 15:51 Resp 27 H 11/12/16 15:51 BP 125/68 11/12/16 15:51 Pulse Ox 98 11/12/16 15:51 - Medical History PMH: Anemia, Anxiety, Arthritis, Asthma, Cardia Arrhythmia, COPD, Fractures, Gall Bladder Disease, HTN, Hyperthyroidism (on methimazole), Hypothyroidism, Malignancy (breast CA), Osteoporosis, Pneumonia Denies: HIV, Chronic Kidney Disease - Surgical History Other surgeries: Right mastectomy, partial resection of right humerus - Family History Family History: States: Unknown Family Hx - Home Medications Home Medications: Ambulatory Orders Medication Instructions Recorded predniSONE [predniSONE Tab] 10 mg PO DAILY 09/25/16 Albuterol 0.083% [Albuterol 0.083% 2.5 mg INH RQ4 PRN 10/06/16 Inhal Aby (2.5 mg/3 ml) UD] Albuterol/Ipratropium [Duoneb 3 3 ml INH RQID 10/06/16 mg/0.5 mg (3 ml) UD] Fluticasone Propionate [Flonase] 2 spr VON DAILY bottle 10/06/16 Gabapentin [Neurontin] 600 mg PO Q8 tab 10/06/16 Lidocaine 5% [Lidoderm] 1 ea TD DAILY patch 10/06/16 Metoprolol Tartrate [Lopressor] 6.25 mg PO Q12 tab 10/06/16 Spironolactone [Aldactone] 25 mg PO DAILY tab 10/06/16 Famotidine [Pepcid] 40 mg PO DAILY 11/04/16 Magnesium Hydroxide [Milk Of 30 ml PO DAILY PRN 11/04/16 Magnesia] - Allergies Allergies/Adverse Reactions: Allergies Allergy/AdvReac Type Severity Reaction Status Date / Time paper tape Allergy RASH Uncoded 11/09/16 18:30 Review of Systems ROS Statement: Except As Marked, All Systems Reviewed And Found Negative Constitutional: Positive for: Fever, Chills, Malaise Cardiovascular: Negative for: Chest Pain Respiratory: Positive for: Cough (chronic), Shortness of Breath Gastrointestinal: Negative for: Nausea, Vomiting, Abdominal Pain, Diarrhea Musculoskeletal: Positive for: Other (edema to right upper extremity, chronic) Skin: Negative for: Rash Neurological: Negative for: Weakness, Dizziness Physical Exam - Reviewed Nursing Documentation Reviewed: Yes Vital Signs Reviewed: Yes - Physical Exam Appears: Positive for: Well, Non-toxic, No Acute Distress Head Exam: Positive for: ATRAUMATIC, NORMAL INSPECTION, NORMOCEPHALIC Skin: Positive for: Normal Color, Warm Eye Exam: Positive for: Normal appearance ENT: Positive for: Pharynx Is (clear, dry mucus membranes), Other (tracheostomy hole intact with no signs of infection) Neck: Positive for: Normal, Supple Cardiovascular/Chest: Positive for: Tachycardia (regular rhythm). Negative for : Murmur Respiratory: Positive for: Decreased Breath Sounds (diffusely). Negative for: Rales, Wheezing, Respiratory Distress Gastrointestinal/Abdominal: Positive for: Normal Exam, Soft. Negative for: Mass , Guarding, Rebound Back: Positive for: Normal Inspection. Negative for: Vertebral Tenderness Extremity: Positive for: Normal ROM, Swelling (right upper extremity diffusely edematous 3+ ). Negative for: Tenderness, Calf Tenderness Lymphatic: Negative for: Adenopathy Neurologic/Psych: Positive for: Alert, Oriented. Negative for: Motor/Sensory Deficits - Laboratory Results Result Diagrams: 11/12/16 04:20 11/12/16 04:20 - ECG ECG Rhythm: Positive for: Sinus Tachycardia O2 Sat by Pulse Oximetry: 96 (RA) - Radiology X-Ray: Interpreted by Fl X-Ray Interpretation: No Acute Disease - Critical Care Total Time (In Min): 30 Documented Critical Care: Time excludes all time spent performint seperately billable procedures Medical Decision Making Medical Decision Making: Time: Impression: Fever Differential: Sepsis, pneumonia, UTI, bacteremia, dehydration, electrolyte abnormalities, bronchitis Plan: -- IV fluids; initially given cautiously due to pt's hx of heart failure -- Bloodwork -- EKG -- CXR -- Urinalysis -- Zosyn IV -- Vancomycin IV -- Blood culture -- Urine culture Reassess 9p Pt's lactic acid wnl BP stable with IVF CXR with no obvious infiltrate or effusion Elevated WBC On reeval, pt is no longer febrile. HR improving. Reviewed pt's previous chart. Has h/o sepsis. Concern for sepsis becoming severe sepsis in this fragile pt, where fluids need to be given cautiously due to cardiac status. DW Dr Noel Hospitalist admitting for PMD Dr Benz for admission and ICU placement. Scribe Attestation: Documented by Gricel Reynolds acting as a scribe for Aleah Guillen MD. Provider Attestation: All medical record entries made by the Scribe were at my direction and personally dictated by me. I have reviewed the chart and agree that the record accurately reflects my personal performance of the history, physical exam, medical decision making, and the department course for this patient. I have also personally directed, reviewed, and agree with the discharge instructions and disposition. Disposition - Clinical Impression Clinical Impression: Sepsis - Patient ED Disposition Is Patient to be Admitted: Yes Counseled Patient/Family Regarding: Studies Performed, Diagnosis - Disposition Disposition Time: 21:00 Condition: GUARDED - Pt Status Changed To: Hospital Disposition Of: Inpatient - Admit Certification Admit to Inpatient:: After my assessment, the patient will require hospitalization for at least two midnights. This is because of the severity of symptoms shown, intensity of services needed, and/or the medical risk in this patient being treated as an outpatient. - POA Present On Arrival: None
[2016-11-09 21:02] LABS: INR 1.4 (0.9-1.2); PARTIAL THROMBOPLASTIN TIME 32.7 Seconds (25.6-37.1)
[2016-11-09] MEDS ORDERED: Sodium Chloride 0.9% 1,000 ML IV STA (21:06)
--- NOTE | 2016-11-09 21:26 | CP.PCM.HP ---
History of Present Illness - History of Present Illness History of Present Illness: CC: fever, elevated WC, low BP HPI: 66 y/o NH patient with extensive medical history who was recently d/c'ed from hospital (10/06) after admission for PNA/sepsis/resp failure. Was discharged on ceftazidime, clindamycin, and Zyvox at the time. She also had her trach decanulated 11/04. Today she comes in with fever, chills, malaise, and myalgias. Denies CP, SOB. Denies n/v/d. Denies increased sputum production. ROS: 14 systems reviewed, negative other than HPI MHx: Chronic Respiratory Failure (trach placed 07/2016, removed 11/04/16), CHF ( systolic+diastolic), COPD, bilateral metastatic breast CA to shoulder s/p chemo- XRT 8 years ago (s/p humerus resection) with chronic lymphedema RUE, HTN, hyperthyroidism, anemia of chronic disease, Hx of tachycardia SVT, osteoporosis , R cephalic vein thrombosis, peripheral neuropathy, anxiety SHx: bilateral mastectomies R 1998/2008, total shoulder replacement (2003) + removal (2013), cervical and lumbar fusions 2007, cholecystectomy, tubal ligation, groin cyst removal Allergies: NKDA, but allergy to paper tape Medications: Per med rec Family Hx: extensive history of cancer including ovarian, colon, breast, pancreatic and lung cancer Social Hx: in NH, 40 p/y smoking history but not currently, no current EtOH Surrogate Decision Maker: Information in chart Present on Admission - Present on Admission Any Indicators Present on Admission: No Past Patient History - Infectious Disease Hx of Infectious Diseases: None - Tetanus Immunizations Tetanus Immunization: Unknown - Past Medical History & Family History Past Medical History?: Yes - Past Social History Smoking Status: Former Smoker - CARDIAC Hx Cardia Arrhythmia: Yes Hx Hypertension: Yes - PULMONARY Hx Asthma: Yes Hx Chronic Obstructive Pulmonary Disease (COPD): Yes Hx Pneumonia: Yes - NEUROLOGICAL Hx Neurological Disorder: Yes Other/Comment: peripheral neuropathy right lower extremity. - HEENT Hx HEENT Problems: Yes Other/Comment: recent right buccal abscess with possible osteomyelitis of the mandible - RENAL Hx Chronic Kidney Disease: No - ENDOCRINE/METABOLIC Hx Hyperthyroidism: Yes (on methimazole) Hx Hypothyroidism: Yes - HEMATOLOGICAL/ONCOLOGICAL Hx Anemia: Yes Hx Human Immunodeficiency Virus (HIV): No - INTEGUMENTARY Hx Dermatological Problems: No - MUSCULOSKELETAL/RHEUMATOLOGICAL Hx Arthritis: Yes Hx Fractures: Yes Hx Osteoporosis: Yes - GASTROINTESTINAL Hx Gall Bladder Disease: Yes - GENITOURINARY/GYNECOLOGICAL Hx Genitourinary Disorders: No - PSYCHIATRIC Hx Anxiety: Yes - SURGICAL HISTORY Hx Surgeries: Yes Hx Mastectomy: Yes (right in 1998; left in 2008) Hx Orthopedic Surgery: Yes (2003 rigtht shoulder prosthesis, removal of hardware 2013) Hx Tubal Ligation: Yes Other/Comment: shoulder and humerous replacement with joint space infection and eventual removal of hardware in right shoulder and chronic lymphedema of RUE, groin cyst removal, cervical spinal fusion 2007, lumbar spinal fusion 2007. - ANESTHESIA Hx Anesthesia: Yes Hx Anesthesia Reactions: No Hx Malignant Hyperthermia: No Meds Allergies/Adverse Reactions: Allergies Allergy/AdvReac Type Severity Reaction Status Date / Time paper tape Allergy RASH Uncoded 11/09/16 18:30 Physical Exam - Constitutional Appears: No Acute Distress, Chronically Ill - Head Exam Head Exam: ATRAUMATIC - Eye Exam Eye Exam: EOMI, PERRL - ENT Exam ENT Exam: Mucous Membranes Moist - Neck Exam Neck exam: Positive for: Full Rom Additional comments: trach site with bandage - Respiratory Exam Respiratory Exam: Rhonchi Additional comments: few crackles - Cardiovascular Exam Cardiovascular Exam: Tachycardia, +S1, +S2 - GI/Abdominal Exam GI & Abdominal Exam: Normal Bowel Sounds, Soft - Extremities Exam Extremities exam: Positive for: full ROM Additional comments: RUE with lymphedema - Neurological Exam Neurological exam: Alert, CN II-XII Intact, Oriented x3 - Psychiatric Exam Psychiatric exam: Normal Affect, Normal Mood - Skin Skin Exam: Dry, Warm Results - Vital Signs Recent Vital Signs: Last Vital Signs Temp 98.7 F 11/09/16 20:21 Pulse 116 H 11/09/16 19:56 Resp 22 11/09/16 19:56 BP 92/53 L 11/09/16 19:56 Pulse Ox 96 11/09/16 20:51 - Labs Result Diagrams: 11/09/16 19:16 11/09/16 19:16 Labs: Laboratory Results - last 24 hr 11/09/16 11/09/16 11/09/16 19:16 19:16 19:16 WBC 22.3 H D RBC 4.65 Hgb 13.6 Hct 42.7 MCV 91.8 D MCH 29.2 MCHC 31.8 L RDW 15.4 H Plt Count 249 MPV 7.8 Neut % (Auto) 92.4 H Lymph % (Auto) 3.6 L [place] % (Auto) 3.9 Eos % (Auto) 0.0 Baso % (Auto) 0.1 Neut # 20.6 H Lymph # 0.8 L [place] # 0.9 H Eos # 0.0 Baso # 0.0 PT 16.0 H INR 1.4 H APTT 32.7 pCO2 pO2 HCO3 ABG pH ABG Total CO2 ABG O2 Saturation ABG Base Excess T[place]anda Test ABG Potassium A-a O2 Difference Glucose Lactate FiO2 Sodium 133 Potassium 4.4 Chloride 98 Carbon Dioxide 30 Anion Gap 10 BUN 16 Creatinine 0.5 L Est GFR ( Amer) > 60 Est GFR (Non-Af Amer) > 60 Random Glucose 90 Calcium 9.7 Phosphorus 4.5 Magnesium 1.4 L Total Bilirubin 0.6 AST 63 H D ALT 78 H D Alkaline Phosphatase 84 Troponin I < 0.0120 NT-Pro-B Natriuret Pep 9790 H Total Protein 6.2 L Albumin 3.5 D Globulin 2.7 Albumin/Globulin Ratio 1.3 Lipase 15 L Arterial Blood Potassium 11/09/16 19:25 WBC RBC Hgb Hct MCV MCH MCHC RDW Plt Count MPV Neut % (Auto) Lymph % (Auto) [place] % (Auto) Eos % (Auto) Baso % (Auto) Neut # Lymph # [place] # Eos # Baso # PT INR APTT pCO2 41 pO2 57 L HCO3 27.9 ABG pH 7.45 ABG Total CO2 29.8 H ABG O2 Saturation 94.7 L ABG Base Excess 4.1 H [place] Test Yes ABG Potassium 3.8 A-a O2 Difference 41.0 Glucose 88 Lactate 1.2 FiO2 21.0 Sodium 129.0 L Potassium Chloride 101.0 Carbon Dioxide Anion Gap BUN Creatinine Est GFR ( Amer) Est GFR (Non-Af Amer) Random Glucose Calcium Phosphorus Magnesium Total Bilirubin AST ALT Alkaline Phosphatase Troponin I NT-Pro-B Natriuret Pep Total Protein Albumin Globulin Albumin/Globulin Ratio Lipase Arterial Blood Potassium 3.8 - EKG Data EKG Interpreted by: Myself EKG shows normal: Sinus rhythm Rate: Tachycardia - EKG Data EKG comments: ?[facility] - Imaging and Cardiology Chest x-ray Status: Image reviewed by me (some hyperinflation, no obvious new consolidations ) Assessment & Plan (1) Sepsis associated hypotension Assessment and Plan: 66 y/o female with mult med probs coming in from [place] with f,c, malaise, and myalgias. No clear source of infection thus far. Recent admission for resp failure/PNA. 1) SIRS/Sepsis -admit ICU -f/u Cx, UA/Cx -continue Vanc/Zosyn; add cipro for now given possibility of HCAP -consider ID consult -Tylenol for fever -Low dose IVF 2) CHF -- stable; hydrating very slowly 3) DVT PPx -- SC Lovenox Status: Acute (2) CHF (congestive heart failure) Status: Acute (3) DVT prophylaxis Status: Acute Priority: Medium
[2016-11-09] MEDS ORDERED: Albuterol-Ipratrop 3 mg / 0.5 (3 ml) UD INH PRN (21:30)
[2016-11-09] MEDS ORDERED: Magnesium Hydroxide Susp 30 ml UD PO PRN (21:32)
[2016-11-09 21:45] LABS: LYMPHOCYTE 8 % (20-50); MONOCYTE 2 % (0-10); NEUTROPHIL 90 % (42-75); TOTAL CELLS COUNTED 100
[2016-11-09 21:46] LABS: PLATELET ESTIMATE NORMAL (NORMAL)
[2016-11-09 21:47] LABS: SQUAMOUS EPITHIAL 1 /hpf (0-5); URINE BILIRUBIN NEGATIVE (NEGATIVE); URINE BLOOD NEGATIVE (NEGATIVE); URINE CLARITY SLIGHTY-CLOUDY (Clear); URINE COLOR YELLOW (YELLOW); URINE GLUCOSE (UA) NEG (Normal); URINE LEUKOCYTE ESTERASE NEG Leu/uL (Negative); URINE NITRATE NEGATIVE (NEGATIVE); URINE PROTEIN NEGATIVE (NEGATIVE); URINE UROBILINOGEN 0.2-1.0 mg/dL (0.2-1.0)
[2016-11-09] MEDS: Piperacillin/Tazobact 3.375 GM in Sodium Chloride 0.9% 100 ML IVPB SCH (22:59)
[2016-11-10] MEDS: Ciprofloxacin 400mg/200ml D5W 400 MG/200 ML BAG IVPB SCH ×3 (00:26→20:04)
[2016-11-10] MEDS: Piperacillin/Tazobact 3.375 GM in Sodium Chloride 0.9% 100 ML IVPB SCH ×4 (03:52→23:06)
[2016-11-10 05:14] LABS: HEMOGLOBIN 12.8 g/dL (12.0-16.0); MEAN CELL VOLUME 92.8 fl (81.0-99.0); MEAN CORPUSCULAR HEMOGLOBIN 28.8 pg (27.0-31.0); RBC 4.43 Mil/uL (3.80-5.20); RED CELL DISTRIBUTION WIDTH 15.5 % (11.5-14.5); WHITE BLOOD COUNT 20.1 K/uL (4.8-10.8)
[2016-11-10 05:23] LABS: BLOOD UREA NITROGEN 11 mg/dl (7-17); CALCIUM 8.7 mg/dL (8.4-10.2); GFR AFRICAN-AMERICAN > 60; GFR NON-AFRICAN AMERICAN > 60
[2016-11-10] MEDS: Morphine 4 MG/ML VIAL IVP PRN (07:06)
--- NOTE | 2016-11-10 07:08 | CP.CCUPN ---
CCU Subjective - Physician Review Subjective (Free Text): c/o acute onset mid-substernal chest pressure discomfort, associated with dyspnea, SPO2 92% on nasal cannula, no accessory mm use, but is tachypneic, no diaphoresis, no palpitations, no radiation of pain, states this pain has not recurred since last hospitalization and is the usual chest discomfort she has had in the past. Denies any N/V, abdominal discomfort, dizziness. IVFs stopped earlier this AM and Lasix IVP given for sensation of fullness in the chest. Symptoms improved after Duoneb and MS 2 mg IVP , produced approx. 200ml urine output so far. Otherwise remains awake and alert, and despite all this does not appear distressed during conversation. Has cough and states unable to fully expectorate phlegm. ROS: as above, no other pertinent negs or positives on 10+ system review. PMSFH: All nursing and physician documentation for this admission reviewed, no new pertinent info relevant to current medical problems noted. CCU Objective - Vital Signs / Intake & Output Vital Signs (Last 4 hours): Vital Signs Temp Pulse Resp BP Pulse Ox 11/10/16 06:29 105/74 11/10/16 06:00 113 H 20 105/74 95 11/10/16 04:00 98.1 F 108 H 21 99/47 L 97 Intake and Output (Last 8hrs): Intake & Output 11/09/16 11/10/16 11/10/16 22:59 06:59 14:59 Intake Total 1010 Output Total 1100 Balance -90 Intake: IV 300 Intake, Piggyback 650 Oral 60 Output: Urine 1100 Urine, Voided 1100 Other: # Voids Urine, Voided 1 - Physical Exam Pupils: Positive for: PERRL Extroacular Muscles: Positive for: EOMI Conjunctiva: Positive for: Normal Ears: Positive for: Normal Mouth: Positive for: Moist Mucous Membranes. Negative for: Drooling Pharnyx: Positive for: Normal. Negative for: Muffled/Hoarse Voice, Strider Neck: Negative for: JVD, Lymphadenopathy, Trachea Midline Respiratory/Chest: Positive for: Decreased Breath Sounds. Negative for: Clear to Auscultation, Respiratory Distress, Wheezes Cardiovascular: Positive for: Regular Rate and Rhythm, Tachycardic Abdomen: Positive for: Normal Bowel Sounds Upper Extremity: Positive for: Edema, Other (RUE with chronic edema / lyphedema changes) Lower Extremity: Positive for: NORMAL PULSES. Negative for: Edema, CALF TENDERNESS, Cyanosis Neurological: Positive for: GCS=15, Motor Func Grossly Intact, Normal Sensory Function Skin: Positive for: Warm. Negative for: Rashes, Diaphoretic - Medications Active Medications: Active Medications Generic Name Dose Route Start Last Admin Trade Name Freq PRN Reason Stop Dose Admin Acetaminophen 975 mg 11/09/16 18:41 11/09/16 19:21 Tylenol 325mg Tab PO 975 mg ONCE PRN Administration Fever >100.4 F Acetaminophen 650 mg 11/09/16 21:26 Tylenol 325mg Tab PO Q6H PRN Pain, Mild (1-3) Acetaminophen 650 mg 11/09/16 21:26 Tylenol 650 Mg Supp UT Q6H PRN Fever >100.4 F Albuterol/Ipratropium 3 ml 11/09/16 21:30 Duoneb 3 Mg/0.5 Mg (3 Ml) Ud INH RQ6 PRN Shortness of Breath Albuterol/Ipratropium 3 ml 11/10/16 09:00 Duoneb 3 Mg/0.5 Mg (3 Ml) Ud INH RQID ANDREAS Enoxaparin Sodium 40 mg 11/10/16 09:00 Lovenox SC DAILY [facility] Protocol Famotidine 40 mg 11/10/16 09:00 Pepcid PO DAILY ANDREAS Fluticasone Propionate 2 spr 11/10/16 09:00 Flonase VON DAILY ANDREAS Gabapentin 600 mg 11/10/16 01:00 11/10/16 00:39 Neurontin PO 600 mg Q8 ANDREAS Administration Ciprofloxacin 400 mg in 200 mls @ 200 mls/hr 11/09/16 21:45 11/10/16 00:26 Cipro 400mg/200ml Dsw IVPB 200 mls/hr Q12 ANDREAS Administration Vancomycin HCl 1 gm/ Sodium 250 mls @ 166.667 mls/hr 11/10/16 09:00 Chloride IVPB Q12 ANDREAS Piperacillin Sod/Tazobactam 100 mls @ 100 mls/hr 11/09/16 22:00 11/10/16 03: 52 Sod 3.375 gm/ Sodium Chloride IVPB 100 mls/hr Q6 ANDREAS Administration Lidocaine 1 ea 11/10/16 09:00 Lidoderm TD DAILY ANDREAS Magnesium Hydroxide 30 ml 11/09/16 21:32 Milk Of Magnesia PO DAILY PRN Constipation Morphine Sulfate 2 mg 11/10/16 07:00 Morphine IVP Q4 PRN Pain, Mild (1-3) - Patient Studies Lab Studies: Lab Studies 11/10/16 11/10/16 11/09/16 Range/Units 04:20 04:20 21:20 WBC 20.1 H (4.8-10.8) K/uL RBC 4.43 (3.80-5.20) Mil/uL Hgb 12.8 (12.0-16.0) g/dL Hct 41.1 (34.0-47.0) % MCV 92.8 (81.0-99.0) fl MCH 28.8 (27.0-31.0) pg MCHC 31.0 L (33.0-37.0) g/dL RDW 15.5 H (11.5-14.5) % Plt Count 237 (130-400) K/uL Sodium 138 (132-148) mmol/l Potassium 3.8 (3.6-5.0) MMOL/L Chloride 106 (98-107) mmol/L Carbon Dioxide 27 (22-30) mmol/L Anion Gap 9 L (10-20) BUN 11 (7-17) mg/dl Creatinine 0.5 L (0.7-1.2) mg/dL Est GFR ( Amer) > 60 Est GFR (Non-Af Amer) > 60 Random Glucose 69 (65-105) mg/dL Calcium 8.7 (8.4-10.2) mg/dL Urine Color Yellow (YELLOW) Urine Clarity Slighty-cloudy (Clear) Urine pH 6.0 (5.0-8.0) Ur Specific [place] 1.010 (1.003-1.030) Urine Protein Negative (NEGATIVE) mg/dL Urine Glucose (UA) Neg (Normal) mg/dL Urine Ketones Negative (NEGATIVE) mg/dL Urine Blood Negative (NEGATIVE) Urine Nitrate Negative (NEGATIVE) Urine Bilirubin Negative (NEGATIVE) Urine Urobilinogen 0.2-1.0 (0.2-1.0) mg/dL Ur Leukocyte Esterase Neg (Negative) Ben/uL Urine RBC (Auto) 6 H (0-3) /hpf Urine Microscopic WBC 2 (0-5) /hpf Ur Squamous Epith Cells 1 (0-5) /hpf Laboratory Results - last 24 hr 11/09/16 11/10/16 11/10/16 21:20 04:20 04:20 WBC 20.1 H RBC 4.43 Hgb 12.8 Hct 41.1 MCV 92.8 MCH 28.8 MCHC 31.0 L RDW 15.5 H Plt Count 237 Sodium 138 Potassium 3.8 Chloride 106 Carbon Dioxide 27 Anion Gap 9 L BUN 11 Creatinine 0.5 L Est GFR ( Amer) > 60 Est GFR (Non-Af Amer) > 60 Random Glucose 69 Calcium 8.7 Urine Color Yellow Urine Clarity Slighty-cloudy Urine pH 6.0 Ur Specific [place] 1.010 Urine Protein Negative Urine Glucose (UA) Neg Urine Ketones Negative Urine Blood Negative Urine Nitrate Negative Urine Bilirubin Negative Urine Urobilinogen 0.2-1.0 Ur Leukocyte Esterase Neg Urine RBC (Auto) 6 H Urine Microscopic WBC 2 Ur Squamous Epith Cells 1 Radiology Interpretations (Free Text): Admission film reviewed: (my interp) mostly clear lung corral, no new consolidation, chronic RLL/RML interstitial changes as compared to 10/03/16 film , no trach tube seem. small blunting of left CPA. EKG/Cardiology Interpretations (Free Text): (my interp) Sinus tachy 120/min, faster rate than 09/29/16, no new significant changes nor any ischemia. Review of Systems - Review of Systems All systems: reviewed and no additional remarkable complaints except - Cardiovascular Cardiovascular: Chest Pain at Rest, Dyspnea. absent: Diaphoresis, Edema, Orthopnea, Palpitations, Pedal Edema - Respiratory Respiratory: Cough, Chest Congestion Critical Care Progress Note - Extremities/Vascular Does the Patient have a Central Venous Catheter?: No Does the Patient need a Central Venous Catheter?: No Does the Patient have a Gutierrez Catheter?: No Does the Patient need a Gutierrez Catheter?: No - Nutrition Nutrition: Nutrition Category Date Time Status Heart Healthy Diet [DIET] Diets 11/09/16 Breakfast Active Assessment/Plan - Assessment and Plan (Free Text) Assessment: 1. Chest pain syndrome, r/o ACS 2. Acute on Chronic Resp Insufficiency 2 COPD, r/o Tracheobronchitis 3. Sepsis 2 Pulmonary source ( tracheobronchitis / Pneumonitis) 4. s/p Trach Decannulation 5. h/o R Mandibular Abscess with successful treatment Plan: 1. Serial Trops, serial EKG, consider repeat ECHO ( last done in 06/14/16 with LVEF 40%, diastolic dysfx, and RV dysfx). 2. No need for IVFs at this time, keep off. 3. Additional Lasix prn. 4. Empiric HCAP abx coverage noted: Zosyn/ Vanco/ Cipro. 5. Culture trach stoma remnant.
[2016-11-10] MEDS: Albuterol-Ipratrop 3 mg / 0.5 (3 ml) UD INH SCH ×4 (08:16→19:02)
--- NOTE | 2016-11-10 08:35 | CARD ---
APPROVED REPORT EKG Measurement Heart [id number] <Conclusion> Sinus tachycardia Voltage criteria for left ventricular hypertrophy Cannot rule out Inferior infarct, age undetermined Abnormal ECG
--- NOTE | 2016-11-10 08:39 | CARD ---
APPROVED REPORT EKG Measurement Heart [id number] <Conclusion> Sinus tachycardia Biatrial enlargement Left ventricular hypertrophy Possible Inferior infarct, age undetermined Abnormal ECG
[2016-11-10] MEDS: Enoxaparin 40 mg Syringe SC SCH (08:48)
[2016-11-10] MEDS: Lidocaine 5% Patch TD SCH (08:49)
--- NOTE | 2016-11-10 09:11 | CP.PCM.CON ---
History of Present Illness - History of Present Illness History of Present Illness: This 66-year-old female is well known to me from previous admissions as well as outpatient setting. She developed a sudden episode of fever associated with chills and body aches which caused her to present to the emergency department where she was found to have significant leukocytosis and fever which caused suspicion for sepsis. She was given fluid resuscitation and admitted to the intensive care unit. She was placed on antibiotics which include Zosyn, Ciprofloxacin and vancomycin. Her blood pressure has remained low normal, but she otherwise is alert and appears comfortable. She had her tracheostomy removed at this institution on 11/04 and returned to subacute rehabilitation or the dressings have been changed on a regular basis. She has noted some increased congestion but has been unable to expectorate. 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 She has long-standing chronic pulmonary disease with bronchial asthma as well as COPD and has also suffered from thyrotoxicosis for which she is taking methimazole, breast carcinoma bilaterally, metastatic disease to the right humerus, cervical disc disease as well as lumbar disc disease and peripheral neuropathy. Past surgical history: Bilateral mastectomies, right shoulder arthroplasty and subsequent removal of the prosthesis because of infection, lumbar spinal fusion as well as cervical fusion in 2007. Social history: She is a former cigarette smoker who only recently discontinued her habit. Alcohol intake is nil and preceding this had been social only. There is no history of illicit drug use. Family history: Breast cancer, ovarian cancer, pancreatic cancer, lung cancer, colon cancer, hypertension. Review of Systems - Review of Systems All systems: reviewed and no additional remarkable complaints except - Constitutional Constitutional: Chills, Fatigue, Fever - EENT Nose/Mouth/Throat: Other (Routine dressing changes over tracheostomy stoma after removal of trach tube recently.) - Cardiovascular Cardiovascular: Chest Pain, Rapid Heart Rate - Respiratory Respiratory: Cough, Chest Congestion - Musculoskeletal Musculoskeletal: Myalgias Past Patient History - Infectious Disease Hx of Infectious Diseases: None - Tetanus Immunizations Tetanus Immunization: Unknown - Past Medical History & Family History Past Medical History?: Yes - Past Social History Smoking Status: Former Smoker Chewing Tobacco Use: No Cigar Use: No Alcohol: None Drugs: Denies Home Situation {Lives}: Other (Subacute rehabilitation) - CARDIAC Hx Cardia Arrhythmia: Yes Hx Congestive Heart Failure: Yes Hx Hypertension: Yes - PULMONARY Hx Asthma: Yes Hx Bronchitis: Yes Hx Chronic Obstructive Pulmonary Disease (COPD): Yes Hx Pneumonia: Yes - NEUROLOGICAL Hx Neurological Disorder: Yes Other/Comment: Peripheral neuropathy right lower extremity. 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 - RENAL Hx Chronic Kidney Disease: No - ENDOCRINE/METABOLIC Hx Hyperthyroidism: Yes (on methimazole) - HEMATOLOGICAL/ONCOLOGICAL Hx Anemia: Yes Hx Cancer: Yes (Breast) Hx Human Immunodeficiency Virus (HIV): No Hx Metastesis: Yes (Bone) - INTEGUMENTARY Hx Dermatological Problems: No - MUSCULOSKELETAL/RHEUMATOLOGICAL Hx Arthritis: Yes Hx Falls: Yes (last one 7 months ago) Hx Fractures: Yes Hx Osteoporosis: Yes Other/Comment: Cervical and lumbar disc disease - GASTROINTESTINAL Hx Gall Bladder Disease: Yes Hx Gastroesophageal Reflux: Yes - GENITOURINARY/GYNECOLOGICAL Hx Genitourinary Disorders: No - PSYCHIATRIC Hx Anxiety: Yes Hx Substance Use: No - SURGICAL HISTORY Hx Surgeries: Yes Hx Mastectomy: Yes (right in 1998; left in 2008) Hx Orthopedic Surgery: Yes (2003 rigtht shoulder prosthesis, removal of hardware 2013) Hx Tubal Ligation: Yes Other/Comment: shoulder and humerous replacement with joint space infection and eventual removal of hardware in right shoulder and chronic lymphedema of RUE, groin cyst removal, cervical spinal fusion 2007, lumbar spinal fusion 2007. - ANESTHESIA Hx Anesthesia: Yes Hx Anesthesia Reactions: No Hx Malignant Hyperthermia: No Meds Allergies/Adverse Reactions: Allergies Allergy/AdvReac Type Severity Reaction Status Date / Time paper tape Allergy RASH Uncoded 11/09/16 18:30 - Medications Medications: Current Medications Acetaminophen (Tylenol 325mg Tab) 975 mg PO ONCE PRN PRN Reason: Fever >100.4 F Last Admin: 11/09/16 19:21 Dose: 975 mg Acetaminophen (Tylenol 325mg Tab) 650 mg PO Q6H PRN PRN Reason: Pain, Mild (1-3) Acetaminophen (Tylenol 650 Mg Supp) 650 mg [place] Q6H PRN PRN Reason: Fever >100.4 F Albuterol/Ipratropium (Duoneb 3 Mg/0.5 Mg (3 Ml) Ud) 3 ml INH RQ6 PRN PRN Reason: Shortness of Breath Albuterol/Ipratropium (Duoneb 3 Mg/0.5 Mg (3 Ml) Ud) 3 ml INH RQID [facility] Last Admin: 11/10/16 08:16 Dose: 3 ml Enoxaparin Sodium (Lovenox) 40 mg SC DAILY [facility] PRN Reason: Protocol Last Admin: 11/10/16 08:48 Dose: 40 mg Famotidine (Pepcid) 40 mg PO DAILY [facility] Last Admin: 11/10/16 08:48 Dose: 40 mg Fluticasone Propionate (Flonase) 2 spr VON DAILY [facility] Last Admin: 11/10/16 08:48 Dose: 2 spr Gabapentin (Neurontin) 600 mg PO Q8 [facility] Last Admin: 11/10/16 08:47 Dose: 600 mg Ciprofloxacin (Cipro 400mg/200ml Dsw) 400 mg in 200 mls @ 200 mls/hr IVPB Q12 [facility] Last Admin: 11/10/16 00:26 Dose: 200 mls/hr Vancomycin HCl 1 gm/ Sodium (Chloride) 250 mls @ 166.667 mls/hr IVPB Q12 [facility] Piperacillin Sod/Tazobactam (Sod 3.375 gm/ Sodium Chloride) 100 mls @ 100 mls/ hr IVPB Q6 [facility] Last Admin: 11/10/16 03:52 Dose: 100 mls/hr Lidocaine (Lidoderm) 1 ea TD DAILY [facility] Last Admin: 11/10/16 08:49 Dose: Not Given Magnesium Hydroxide (Milk Of Magnesia) 30 ml PO DAILY PRN PRN Reason: Constipation Morphine Sulfate (Morphine) 2 mg IVP Q4 PRN PRN Reason: Pain, Mild (1-3) Last Admin: 11/10/16 07:06 Dose: 2 mg Physical Exam - Additional Findings Additional findings: Thin female who appears comfortable during the examination. Awake, alert and oriented and following all commands. Speech is fluent. Memory is intact. Dressing is removed from tracheostomy stoma and there is noted to be purulent material under the dressing. A small defect is noted where the tracheostomy stoma was present. No erythema or induration of the tissues around the residual defect. Conjunctivae are pink and there is no scleral icterus. Nasal passages are patent bilaterally without bleeding. Lymphedema of the right upper extremity is noted. There is no cyanosis or clubbing. No ankle edema is noted. No calf tenderness. Pharynx is pink and mucous membranes are moist. No exudate. No dullness to percussion of the anterior chest wall. No subcutaneous emphysema. Breath sounds are present bilaterally, diminished. Few rhonchi are heard in the dependent zones posteriorly. No audible wheezing. Rare dry rales are heard in the lower lobes posteriorly. No bronchial breathing. Heart sounds are distant but rhythm is regular and mildly tachycardic. Abdomen is soft and nontender with normal bowel sounds. Results - Vital Signs Recent Vital Signs: Last Vital Signs Temp 98.5 F 11/10/16 07:29 Pulse 115 H 11/10/16 07:29 Resp 24 11/10/16 07:29 BP 127/87 11/10/16 07:29 Pulse Ox 92 L 11/10/16 07:29 - Labs Result Diagrams: 11/10/16 04:20 11/10/16 04:20 Labs: Laboratory Results - last 24 hr 11/09/16 11/10/16 11/10/16 21:20 04:20 04:20 WBC 20.1 H RBC 4.43 Hgb 12.8 Hct 41.1 MCV 92.8 MCH 28.8 MCHC 31.0 L RDW 15.5 H Plt Count 237 Sodium 138 Potassium 3.8 Chloride 106 Carbon Dioxide 27 Anion Gap 9 L BUN 11 Creatinine 0.5 L Est GFR ( Amer) > 60 Est GFR (Non-Af Amer) > 60 Random Glucose 69 Calcium 8.7 Urine Color Yellow Urine Clarity Slighty-cloudy Urine pH 6.0 Ur Specific [place] 1.010 Urine Protein Negative Urine Glucose (UA) Neg Urine Ketones Negative Urine Blood Negative Urine Nitrate Negative Urine Bilirubin Negative Urine Urobilinogen 0.2-1.0 Ur Leukocyte Esterase Neg Urine RBC (Auto) 6 H Urine Microscopic WBC 2 Ur Squamous Epith Cells 1 Assessment & Plan (1) Sepsis associated hypotension Status: Acute Priority: High (2) Acute bronchitis with chronic obstructive pulmonary disease (COPD) Status: Acute Priority: High (3) Hyperthyroidism Status: Chronic Priority: High - Assessment and Plan (Free Text) Plan: Culture obtained from tracheostomy stoma and sent to laboratory. Agree with current antibiotic regimen and ID consultation. Continue with supportive therapy including fluids and oxygen. Maintain all routine medications without change. Continue aerosol therapy but change oxygen to high flow, 20 L/m-30%. Daily dressing change release manager tracheostomy stoma. - Date & Time Date: 11/10/16 Time: 09:03
--- NOTE | 2016-11-10 10:17 | CP.PCM.PN ---
Subjective - Date & Time of Evaluation Date of Evaluation: 11/10/16 Time of Evaluation: 10:14 - Subjective Subjective: ID NOTE PATIENT WELL KNOWN TO ME FROM PREVIOUS ADMISSIONS HAVE REVIEWED CHART ,CONTINUE SAME REGIMEN AWAIT CULTURES Objective - Vital Signs/Intake and Output Vital Signs (last 24 hours): Temp Pulse Resp BP Pulse Ox 98.5 F 115 H 24 127/87 92 L 11/10/16 07:29 11/10/16 07:29 11/10/16 07:29 11/10/16 07:29 11/10/16 07:29 Intake and Output: 11/10/16 11/10/16 06:59 18:59 Intake Total 1010 100 Output Total 1100 600 Balance -90 -500 - Medications Medications: Current Medications Acetaminophen (Tylenol 325mg Tab) 975 mg PO ONCE PRN PRN Reason: Fever >100.4 F Last Admin: 11/09/16 19:21 Dose: 975 mg Acetaminophen (Tylenol 325mg Tab) 650 mg PO Q6H PRN PRN Reason: Pain, Mild (1-3) Acetaminophen (Tylenol 650 Mg Supp) 650 mg IN Q6H PRN PRN Reason: Fever >100.4 F Albuterol/Ipratropium (Duoneb 3 Mg/0.5 Mg (3 Ml) Ud) 3 ml INH RQ6 PRN PRN Reason: Shortness of Breath Albuterol/Ipratropium (Duoneb 3 Mg/0.5 Mg (3 Ml) Ud) 3 ml INH RQID [facility] Last Admin: 11/10/16 08:16 Dose: 3 ml Enoxaparin Sodium (Lovenox) 40 mg SC DAILY [facility] PRN Reason: Protocol Last Admin: 11/10/16 08:48 Dose: 40 mg Famotidine (Pepcid) 40 mg PO DAILY [facility] Last Admin: 11/10/16 08:48 Dose: 40 mg Fluticasone Propionate (Flonase) 2 spr VON DAILY [facility] Last Admin: 11/10/16 08:48 Dose: 2 spr Gabapentin (Neurontin) 600 mg PO Q8 [facility] Last Admin: 11/10/16 08:47 Dose: 600 mg Ciprofloxacin (Cipro 400mg/200ml Dsw) 400 mg in 200 mls @ 200 mls/hr IVPB Q12 [facility] Last Admin: 11/10/16 00:26 Dose: 200 mls/hr Vancomycin HCl 1 gm/ Sodium (Chloride) 250 mls @ 166.667 mls/hr IVPB Q12 [facility] Piperacillin Sod/Tazobactam (Sod 3.375 gm/ Sodium Chloride) 100 mls @ 100 mls/ hr IVPB Q6 [facility] Last Admin: 11/10/16 10:07 Dose: 100 mls/hr Lidocaine (Lidoderm) 1 ea TD DAILY [facility] Last Admin: 11/10/16 08:49 Dose: Not Given Magnesium Hydroxide (Milk Of Magnesia) 30 ml PO DAILY PRN PRN Reason: Constipation Morphine Sulfate (Morphine) 2 mg IVP Q4 PRN PRN Reason: Pain, Mild (1-3) Last Admin: 11/10/16 07:06 Dose: 2 mg - Labs Labs: 11/10/16 04:20 11/10/16 04:20 PT 16.0 Seconds (9.8-13.1) H 11/09/16 19:16 INR 1.4 (0.9-1.2) H 11/09/16 19:16 APTT 32.7 Seconds (25.6-37.1) 11/09/16 19:16
--- NOTE | 2016-11-10 10:27 | RAD ---
HISTORY: Sepsis Patient COMPARISON: 10/03/2016. FINDINGS: LUNGS: The lungs are hyperinflated and there is peribronchial thickening with chronic changes in both lungs. There is bibasilar airspace disease. PLEURA: Question of small left pleural effusion. No significant right pleural effusion identified, no pneumothorax apparent. CARDIOVASCULAR: The heart is normal in size. Atherosclerotic aortic arch calcifications are present. OSSEOUS STRUCTURES: There is an old deformity in the right shoulder joint. VISUALIZED UPPER ABDOMEN: Normal. OTHER FINDINGS: None. IMPRESSION: COPD. Bibasilar airspace disease could represent atelectasis or pneumonia. Suspect small left pleural effusion.
--- NOTE | 2016-11-10 13:42 | PQF GENQUE ---
Dr. Olsen, Please specify the type and acuity of heart failure in your progress notes: 1. TYPE: Combined systolic and diastolic Diastolic Systolic Other (please specify) Clinically unable to determine Unknown 2. ACUITY: Acute Chronic Acute on chronic Other (please specify) Clinically unable to determine Unknown H and P: CHF -- stable; hydrating very slowly and CHF: Acute Pro-BNP:[id number] 11/10/16: Lasix IV x 2 CXR: COPD. Bibasilar airspace disease could represent atelectasis or pneumonia. Suspect small left pleural effusion This form is a permanent part of the medical record Clarification of your documentation is requested to better reflect the severity of illness and intensity of treatment of your patient. Indicators present [] Specify: [] [] Specify: [] [] Specify: [] [] Specify: [] Location in the medical record that reflects the above clinical findings: [] Treatment Provided: [] PHYSICIAN'S RESPONSE Patient has chronic systolic and diastolic CHF , compensated No CHF exacerbation on admision Based on your medical judgment of the clinical indicators outlined above please clarify the following: [] Practitioner response [] If unable to determine, please check the box, sign and date. Present On Admission (POA) Indicator: [] Present at the time of admission [] Not present at the time of admission [] Clinically Undetermined In responding to this query, please exercise your independent professional judgment. The fact that a question is asked does not imply that any particular answer is desired or expected. Thank you for your clarification on this documentation. If you have any questions please call. * Thank you, Aneta Leiva RN BSN ext. #[phone] MTDD
--- NOTE | 2016-11-10 19:31 | CP.PCM.PN ---
Subjective - Date & Time of Evaluation Date of Evaluation: 11/10/16 Time of Evaluation: 09:00 - Subjective Subjective: Patient was seen and examined bedside. Feeling a little better better. At present denies any pain , with baseline SOB. On high flow O2 via NC 20 LPM on FI02 30 % saturating 93-94 %, tachycardic HR 136-106, BP on the lower side 101/ 45 Tmax 103 Pus noticed under the trache dressing WBc elevated but trending down from 22 k- 20 k Hgb 12 Objective - Vital Signs/Intake and Output Vital Signs (last 24 hours): Temp Pulse Resp BP Pulse Ox 98.5 F 111 H 22 94/54 L 94 L 11/10/16 16:00 11/10/16 18:00 11/10/16 18:57 11/10/16 18:00 11/10/16 18:00 Intake and Output: 11/10/16 11/11/16 18:59 06:59 Intake Total 520 Output Total 1900 Balance -1380 - Medications Medications: Current Medications Acetaminophen (Tylenol 325mg Tab) 975 mg PO ONCE PRN PRN Reason: Fever >100.4 F Last Admin: 11/09/16 19:21 Dose: 975 mg Acetaminophen (Tylenol 325mg Tab) 650 mg PO Q6H PRN PRN Reason: Pain, Mild (1-3) Acetaminophen (Tylenol 650 Mg Supp) 650 mg [place] Q6H PRN PRN Reason: Fever >100.4 F Albuterol/Ipratropium (Duoneb 3 Mg/0.5 Mg (3 Ml) Ud) 3 ml INH RQ6 PRN PRN Reason: Shortness of Breath Albuterol/Ipratropium (Duoneb 3 Mg/0.5 Mg (3 Ml) Ud) 3 ml INH RQID [facility] Last Admin: 11/10/16 19:02 Dose: 3 ml Enoxaparin Sodium (Lovenox) 40 mg SC DAILY [facility] PRN Reason: Protocol Last Admin: 11/10/16 08:48 Dose: 40 mg Famotidine (Pepcid) 40 mg PO DAILY [facility] Last Admin: 11/10/16 08:48 Dose: 40 mg Fluticasone Propionate (Flonase) 2 spr VON DAILY [facility] Last Admin: 11/10/16 08:48 Dose: 2 spr Gabapentin (Neurontin) 600 mg PO Q8 [facility] Last Admin: 11/10/16 16:03 Dose: 600 mg Ciprofloxacin (Cipro 400mg/200ml Dsw) 400 mg in 200 mls @ 200 mls/hr IVPB Q12 [facility] Last Admin: 11/10/16 11:07 Dose: 200 mls/hr Vancomycin HCl 1 gm/ Sodium (Chloride) 250 mls @ 166.667 mls/hr IVPB Q12 [facility] Last Admin: 11/10/16 13:34 Dose: 166.667 mls/hr Piperacillin Sod/Tazobactam (Sod 3.375 gm/ Sodium Chloride) 100 mls @ 100 mls/ hr IVPB Q6 [facility] Last Admin: 11/10/16 15:54 Dose: 100 mls/hr Lidocaine (Lidoderm) 1 ea TD DAILY [facility] Last Admin: 11/10/16 08:49 Dose: Not Given Magnesium Hydroxide (Milk Of Magnesia) 30 ml PO DAILY PRN PRN Reason: Constipation Morphine Sulfate (Morphine) 2 mg IVP Q4 PRN PRN Reason: Pain, Mild (1-3) Last Admin: 11/10/16 07:06 Dose: 2 mg - Labs Labs: 11/10/16 04:20 11/10/16 04:20 PT 16.0 Seconds (9.8-13.1) H 11/09/16 19:16 INR 1.4 (0.9-1.2) H 11/09/16 19:16 APTT 32.7 Seconds (25.6-37.1) 11/09/16 19:16 - Constitutional Appears: Non-toxic, No Acute Distress, Chronically Ill - Head Exam Head Exam: ATRAUMATIC, NORMAL INSPECTION, NORMOCEPHALIC - Eye Exam Eye Exam: EOMI, Normal appearance, PERRL Pupil Exam: NORMAL ACCOMODATION - ENT Exam ENT Exam: Mucous Membranes Moist, Normal Exam - Neck Exam Neck Exam: Normal Inspection Additional comments: anterior neck closed trache stoma with minimal pus and erythema - Respiratory Exam Respiratory Exam: Decreased Breath Sounds (bibasilar with rales), Prolonged Expiratory Phase, Rhonchi (scattered ) - Cardiovascular Exam Cardiovascular Exam: Tachycardia. absent: JVD - GI/Abdominal Exam GI & Abdominal Exam: Soft, Normal Bowel Sounds. absent: Distended, Guarding, Rebound - Rectal Exam Rectal Exam: Deferred - Extremities Exam Extremities Exam: absent: Pedal Edema Additional comments: Right upper extremity lymphedema - Back Exam Back Exam: NORMAL INSPECTION - Neurological Exam Neurological Exam: Alert, Awake, CN II-XII Intact, Oriented x3 - Psychiatric Exam Psychiatric exam: Normal Affect - Skin Skin Exam: Dry, Pallor, Warm Assessment and Plan - Assessment and Plan (Free Text) Assessment: 66 y/o female with extensive PMH and long hospitalizations , Chronic Respiratory Failure with Trach placed 07/2016 and decanulation 11/04/16 ( 6 days ago ) , s/p gastric tube placement and removal , CHF (systolic+diastolic), COPD , bilateral metastatic breast CA to shoulder s/p chemo/rad 8 years ago (s/p humerus resection) with chronic lymphedema RUE, HTN, hyperthyroidism, tachycardia/SVT, R cephalic vein thrombosis, anxiety, came to ER with fever , chills malaise and myalgia . Patient found to be hypotensive, tachycardic, Febril etmax 102 WBC 22 K . Patient admitted with diagnosis of sepsis , started on IVF and IV antibiotics.She responded to IVF resuscitation Physical exam showed purulent secretions under the dressing over the recently closed trache to anterior neck . Blood, urine and cultures from trache secretion sent. 1. Sepsis associated hypotension Most likely source of infection is the recently closed trache area since purulent secretions were seen Cultures sent F/u blood , urine wound cx CXR showed no infiltrates responded to IVF ID and pulmonary consulted continue daily wound care to trache area on Vanco, Zosyn and Cipro iv 2. Infected Trache area wound care daily F/u cultures ID consulted Continue IV antibiotics 3. Chronic respiratory insufficiency most likely secondary to COPD patient was heavy smoker and quit just recently on high flow O2 20 LPM FIO2 30 % Duone Pulmonary consult 4.CHF (congestive heart failure) stable Chronic Systolic and Diastolic Heart Failure BNP slightly elevated LAST ECHO 06/14/2016: Mild to moderate decreased LVEF 40-45%, RV moderately dilated, decreased RV function, Diastolic inflow pattern restrictive Lopressor 6.25mg q12 and Spironolactone 25 mg po daily on hold due to hypotension Monitor for fluid overload Lasix as necessary 5.hx of R cephalic vein thrombosis 6.Sinus Tachycardia/Hx SVT Patient was on Verapamil on proior admissions (180 MG CR) on verapamil , lopressor on hold due to hypotension 7.Hx Bilateral Mastectomy, breast CA with chronic lymphedema RUE and peripheral neuropathy Continue Arimidex 1 mg po Daily Continue Gabapentin 600 mg po q8h 8.Hypertension Metoprolol on hold due to hypotension 9.Hyperthyroidism was on Tapazole 5 mg po daily last admission Check TSH and consult Dr. Vu if necessary 10.VTE ppx Lovenox
[2016-11-11] MEDS: Piperacillin/Tazobact 3.375 GM in Sodium Chloride 0.9% 100 ML IVPB SCH ×4 (04:05→22:30)
[2016-11-11 05:23] LABS: HEMOGLOBIN 12.2 g/dL (12.0-16.0); MEAN CELL VOLUME 91.6 fl (81.0-99.0); MEAN CORPUSCULAR HGB CONC 31.6 g/dL (33.0-37.0); RBC 4.2 Mil/uL (3.80-5.20); RED CELL DISTRIBUTION WIDTH 15.7 % (11.5-14.5); WHITE BLOOD COUNT 16.8 K/uL (4.8-10.8)
[2016-11-11 05:26] LABS: ALB/GLOB RATIO 1.1 (1.0-2.1); ALBUMIN 2.9 g/dL (3.5-5.0); ALT/SGPT 46 U/L (9-52); AST/SGOT 19 U/L (14-36); BLOOD UREA NITROGEN 9 mg/dl (7-17); CALCIUM 8.6 mg/dL (8.4-10.2); GFR AFRICAN-AMERICAN > 60; GFR NON-AFRICAN AMERICAN > 60
[2016-11-11] MEDS ORDERED: Potassium Chloride 20 mEq ER Tab PO STA (06:30)
--- NOTE | 2016-11-11 06:35 | CP.CCUPN ---
CCU Subjective - Physician Review Subjective (Free Text): Uneventful night with no new complaints, no further recurrence of chest discomfort, FiO2 increased slightly yesterday afternoon form 30% to 40% on HFNC to ensure SPO2 remains at or above 92%. No other distress, cough production has slightly improved, has been able to expectorate a bit more phlegm. T max 100F yesterday and no recurrent fever spikes similar to admission temp of 103F. ROS: as above, no other pertinent negs or positives on 10+ system review. PMSFH: All nursing and physician documentation for this admission reviewed, no new pertinent info relevant to current medical problems noted. CCU Objective - Vital Signs / Intake & Output Vital Signs (Last 4 hours): Vital Signs Temp Pulse Resp BP Pulse Ox 11/11/16 06:03 22 11/11/16 06:00 91 H 22 95/46 L 94 L 11/11/16 04:00 99.4 F 104 H 24 121/51 L 93 L Intake and Output (Last 8hrs): Intake & Output 11/10/16 11/10/16 11/11/16 14:59 22:59 06:59 Intake Total 200 555 508 Output Total 1450 450 500 Balance -1250 105 8 Weight 100 lb Intake: IV 100 10 8 Intake, Piggyback 100 300 450 Oral 245 50 Output: Urine 1450 450 500 Urethral (Gutierrez) 350 450 500 Urine, Voided 1100 Other: # Voids Urine, Voided 3 # Bowel Movements 0 - Physical Exam Pupils: Positive for: PERRL Extroacular Muscles: Positive for: EOMI Conjunctiva: Positive for: Normal Ears: Positive for: Normal Mouth: Positive for: Moist Mucous Membranes. Negative for: Drooling Pharnyx: Positive for: Normal. Negative for: Muffled/Hoarse Voice, Strider Neck: Negative for: JVD, Lymphadenopathy, Trachea Midline Respiratory/Chest: Positive for: Decreased Breath Sounds, Other (Trach stoma remnant intatc, no erythema nor tenderness). Negative for: Clear to Auscultation, Respiratory Distress, Wheezes Cardiovascular: Positive for: Regular Rate and Rhythm, Tachycardic Abdomen: Positive for: Normal Bowel Sounds Upper Extremity: Positive for: Edema, Other (RUE with chronic edema / lyphedema changes) Lower Extremity: Positive for: NORMAL PULSES. Negative for: Edema, CALF TENDERNESS, Cyanosis Neurological: Positive for: GCS=15, Motor Func Grossly Intact, Normal Sensory Function Skin: Positive for: Warm. Negative for: Rashes, Diaphoretic - Medications Active Medications: Active Medications Generic Name Dose Route Start Last Admin Trade Name Freq PRN Reason Stop Dose Admin Acetaminophen 975 mg 11/09/16 18:41 11/09/16 19:21 Tylenol 325mg Tab PO 975 mg ONCE PRN Administration Fever >100.4 F Acetaminophen 650 mg 11/09/16 21:26 11/11/16 05:22 Tylenol 325mg Tab PO 650 mg Q6H PRN Administration Pain, Mild (1-3) Acetaminophen 650 mg 11/09/16 21:26 Tylenol 650 Mg Supp VT Q6H PRN Fever >100.4 F Albuterol/Ipratropium 3 ml 11/09/16 21:30 Duoneb 3 Mg/0.5 Mg (3 Ml) Ud INH RQ6 PRN Shortness of Breath Albuterol/Ipratropium 3 ml 11/10/16 09:00 11/10/16 19:02 Duoneb 3 Mg/0.5 Mg (3 Ml) Ud INH 3 ml RQID [facility] Administration Enoxaparin Sodium 40 mg 11/10/16 09:00 11/10/16 08:48 Lovenox SC 40 mg DAILY [facility]RE[facility] Administration Protocol Famotidine 40 mg 11/10/16 09:00 11/10/16 08:48 Pepcid PO 40 mg DAILY [facility] Administration Fluticasone Propionate 2 spr 11/10/16 09:00 11/10/16 08:48 Flonase VON 2 spr DAILY [facility] Administration Gabapentin 600 mg 11/10/16 01:00 11/11/16 00:14 Neurontin PO 600 mg Q8 [facility] Administration Ciprofloxacin 400 mg in 200 mls @ 200 mls/hr 11/09/16 21:45 11/10/16 20:04 Cipro 400mg/200ml Dsw IVPB 200 mls/hr Q12 [facility] Administration Vancomycin HCl 1 gm/ Sodium 250 mls @ 166.667 mls/hr 11/10/16 09:00 11/10/16 21:18 Chloride IVPB 166.667 mls/hr Q12 [facility] Administration Piperacillin Sod/Tazobactam 100 mls @ 100 mls/hr 11/09/16 22:00 07/06/17 04: 05 Sod 3.375 gm/ Sodium Chloride IVPB 100 mls/hr Q6 [facility] Administration Potassium Chloride 50 mls @ 50 mls/hr 11/11/16 07:00 Potassium Cl 10meq/50ml Sterile Water IVPB 11/11/16 10:59 Q1 [facility] Magnesium Sulfate 1 gm/ Sodium 102 mls @ 204 mls/hr 11/11/16 06:30 Chloride IVPB 11/11/16 06:59 ONCE ONE 1 GM/30 MIN Lidocaine 1 ea 11/10/16 09:00 11/10/16 08:49 Lidoderm TD Not Given DAILY [facility] Magnesium Hydroxide 30 ml 11/09/16 21:32 Milk Of Magnesia PO DAILY PRN Constipation Methimazole 5 mg 11/11/16 09:00 Tapazole PO DAILY [facility] Morphine Sulfate 2 mg 11/10/16 07:00 11/10/16 07:06 Morphine IVP 2 mg Q4 PRN Administration Pain, Mild (1-3) - Patient Studies Lab Studies: Microbiology Studies 11/10/16 09:56 Gram Stain - Final Neck Lab Studies 11/11/16 11/11/16 Range/Units 04:20 04:20 WBC 16.8 H (4.8-10.8) K/uL RBC 4.20 (3.80-5.20) Mil/uL Hgb 12.2 (12.0-16.0) g/dL Hct 38.5 (34.0-47.0) % MCV 91.6 (81.0-99.0) fl MCH 29.0 (27.0-31.0) pg MCHC 31.6 L (33.0-37.0) g/dL RDW 15.7 H (11.5-14.5) % Plt Count 230 (130-400) K/uL Sodium 135 (132-148) mmol/l Potassium 2.8 L (3.6-5.0) MMOL/L Chloride 100 (98-107) mmol/L Carbon Dioxide 26 (22-30) mmol/L Anion Gap 12 (10-20) BUN 9 (7-17) mg/dl Creatinine 0.6 L (0.7-1.2) mg/dL Est GFR ( Amer) > 60 Est GFR (Non-Af Amer) > 60 Random Glucose 80 (65-105) mg/dL Calcium 8.6 (8.4-10.2) mg/dL Total Bilirubin 0.6 (0.2-1.3) mg/dl AST 19 (14-36) U/L ALT 46 (9-52) U/L Alkaline Phosphatase 90 (38-126) U/L Total Protein 5.6 L (6.3-8.2) G/DL Albumin 2.9 L (3.5-5.0) g/dL Globulin 2.7 (2.2-3.9) gm/dL Albumin/Globulin Ratio 1.1 (1.0-2.1) Laboratory Results - last 24 hr 11/11/16 11/11/16 04:20 04:20 WBC 16.8 H RBC 4.20 Hgb 12.2 Hct 38.5 MCV 91.6 MCH 29.0 MCHC 31.6 L RDW 15.7 H Plt Count 230 Sodium 135 Potassium 2.8 L Chloride 100 Carbon Dioxide 26 Anion Gap 12 BUN 9 Creatinine 0.6 L Est GFR ( Amer) > 60 Est GFR (Non-Af Amer) > 60 Random Glucose 80 Calcium 8.6 Total Bilirubin 0.6 AST 19 ALT 46 Alkaline Phosphatase 90 Total Protein 5.6 L Albumin 2.9 L Globulin 2.7 Albumin/Globulin Ratio 1.1 Radiology Interpretations (Free Text): (my interp) no new consolidation, chronic RLL/RML interstitial changes as compared to Admission and 10/03/16 film, small blunting of left CPA. Review of Systems - Review of Systems All systems: reviewed and no additional remarkable complaints except - Cardiovascular Cardiovascular: absent: Chest Pain, Chest Pain at Rest, Chest Pain with Activity , Diaphoresis, Edema - Respiratory Respiratory: Cough. absent: Stridor Critical Care Progress Note - Prophylaxis GI Prophylaxis GI: Not Indicated - Prophylaxis DVT Prophylaxis DVT: SCDs - Nutrition Nutrition: Nutrition Category Date Time Status Heart Healthy Diet [DIET] Diets 11/09/16 Breakfast Active Assessment/Plan - Assessment and Plan (Free Text) Assessment: 1. Chest pain syndrome, chronic and recurrent, w/u negative several times in the past for acute PTE 2. Acute on Chronic Resp Insufficiency 2 COPD, r/o Tracheobronchitis 3. Sepsis 2 Pulmonary source ( tracheobronchitis / Pneumonitis) 4. Hypokalemia 5. s/p Trach Decannulation Plan: 1. Trop negative. 2. No need for IVFs at this time, keep off. Lasix prn. 3. Empiric HCAP abx coverage noted: Zosyn/ Vanco/ Cipro. CXR stable, no worse. WBCs decreasing. 4. Cultures from trach stoma remnant pending. 5. K supplemented, check Mag / Phos levels.
[2016-11-11] MEDS: Potassium CL 10 MEQ/50 ML 50 ML IVPB SCH ×2 (06:51→08:18)
[2016-11-11] MEDS: Albuterol-Ipratrop 3 mg / 0.5 (3 ml) UD INH SCH ×4 (07:51→20:10)
[2016-11-11] MEDS: Ciprofloxacin 400mg/200ml D5W 400 MG/200 ML BAG IVPB SCH (08:07)
[2016-11-11] MEDS: Enoxaparin 40 mg Syringe SC SCH (08:07)
[2016-11-11] MEDS: methIMAzole 5 MG TAB PO SCH (08:09)
[2016-11-11] MEDS: Lidocaine 5% Patch TD SCH (08:09)
[2016-11-11] MEDS ORDERED: Potassium Chloride 20 mEq/15 ml LIQ UD PO ONE ×2 (08:24→13:00)
--- NOTE | 2016-11-11 09:00 | CP.PCM.PN ---
Subjective - Date & Time of Evaluation Date of Evaluation: 11/11/16 Time of Evaluation: 08:45 - Subjective Subjective: No fever still with cough- had some yellowish phlegm but better barely any drainage from Trach site no CP tolerating High Flow Oxygen at 20 LPM 40% FiOno abd pain no diarrhea no leg edema Objective - Vital Signs/Intake and Output Vital Signs (last 24 hours): Temp Pulse Resp BP Pulse Ox 98.2 F 86 17 111/60 96 11/11/16 08:00 11/11/16 08:00 11/11/16 08:00 11/11/16 08:00 11/11/16 08:00 Intake and Output: 11/11/16 11/11/16 06:59 18:59 Intake Total 743 Output Total 500 100 Balance 243 -100 - Medications Medications: Current Medications Acetaminophen (Tylenol 325mg Tab) 975 mg PO ONCE PRN PRN Reason: Fever >100.4 F Last Admin: 11/09/16 19:21 Dose: 975 mg Acetaminophen (Tylenol 325mg Tab) 650 mg PO Q6H PRN PRN Reason: Pain, Mild (1-3) Last Admin: 11/11/16 05:22 Dose: 650 mg Acetaminophen (Tylenol 650 Mg Supp) 650 mg [place] Q6H PRN PRN Reason: Fever >100.4 F Albuterol/Ipratropium (Duoneb 3 Mg/0.5 Mg (3 Ml) Ud) 3 ml INH RQ6 PRN PRN Reason: Shortness of Breath Albuterol/Ipratropium (Duoneb 3 Mg/0.5 Mg (3 Ml) Ud) 3 ml INH RQID [facility] Last Admin: 11/11/16 07:51 Dose: 3 ml Enoxaparin Sodium (Lovenox) 40 mg SC DAILY [facility]RE[facility] PRN Reason: Protocol Last Admin: 11/11/16 08:07 Dose: 40 mg Famotidine (Pepcid) 40 mg PO DAILY [facility] Last Admin: 11/11/16 08:09 Dose: 40 mg Fluticasone Propionate (Flonase) 2 spr VON DAILY [facility] Last Admin: 11/11/16 08:08 Dose: 2 spr Gabapentin (Neurontin) 600 mg PO Q8 [facility] Last Admin: 11/11/16 08:09 Dose: 600 mg Ciprofloxacin (Cipro 400mg/200ml Dsw) 400 mg in 200 mls @ 200 mls/hr IVPB Q12 [facility] Last Admin: 11/11/16 08:07 Dose: 200 mls/hr Vancomycin HCl 1 gm/ Sodium (Chloride) 250 mls @ 166.667 mls/hr IVPB Q12 [facility] Last Admin: 11/11/16 08:10 Dose: 166.667 mls/hr Piperacillin Sod/Tazobactam (Sod 3.375 gm/ Sodium Chloride) 100 mls @ 100 mls/ hr IVPB Q6 [facility] Last Admin: 11/11/16 04:05 Dose: 100 mls/hr Lidocaine (Lidoderm) 1 ea TD DAILY [facility] Last Admin: 11/11/16 08:09 Dose: Not Given Magnesium Hydroxide (Milk Of Magnesia) 30 ml PO DAILY PRN PRN Reason: Constipation Methimazole (Tapazole) 5 mg PO DAILY [facility] Last Admin: 11/11/16 08:09 Dose: 5 mg Morphine Sulfate (Morphine) 2 mg IVP Q4 PRN PRN Reason: Pain, Mild (1-3) Last Admin: 11/10/16 07:06 Dose: 2 mg Potassium Chloride (Potassium Chloride Oral Soln) 20 meq PO ONCE ONE Stop: 11/11/16 13:01 - Labs Labs: 11/11/16 04:20 11/11/16 04:20 PT 16.0 Seconds (9.8-13.1) H 11/09/16 19:16 INR 1.4 (0.9-1.2) H 11/09/16 19:16 APTT 32.7 Seconds (25.6-37.1) 11/09/16 19:16 - Constitutional Appears: No Acute Distress - Head Exam Head Exam: NORMAL INSPECTION, NORMOCEPHALIC - Eye Exam Eye Exam: EOMI, Normal appearance Pupil Exam: NORMAL ACCOMODATION - ENT Exam ENT Exam: Mucous Membranes Moist, Normal External Ear Exam - Neck Exam Neck Exam: Full ROM. absent: Meningismus Additional comments: Trach site - opening very small, very minimal drainage - Respiratory Exam Respiratory Exam: Rales, Rhonchi, NORMAL BREATHING PATTERN. absent: Wheezes, Respiratory Distress - Cardiovascular Exam Cardiovascular Exam: REGULAR RHYTHM, +S1, +S2 - GI/Abdominal Exam GI & Abdominal Exam: Soft, Normal Bowel Sounds. absent: Tenderness - Extremities Exam Extremities Exam: Normal Capillary Refill. absent: Calf Tenderness, Pedal Edema Additional comments: RUE edema Assessment and Plan - Assessment and Plan (Free Text) Assessment: 66 y/o female with extensive PMH and long hospitalizations , Chronic Respiratory Failure with Trach placed 07/2016 and decanulation 11/04/16 ( 6 days ago ) , s/p gastric tube placement and removal , CHF (systolic+diastolic), COPD , bilateral metastatic breast CA to shoulder s/p chemo/rad 8 years ago (s/p humerus resection) with chronic lymphedema RUE, HTN, hyperthyroidism, tachycardia/SVT, R cephalic vein thrombosis, anxiety, came to ER with fever , chills malaise and myalgia . Patient found to be hypotensive, tachycardic, Febril etmax 102 WBC 22 K . Patient admitted with diagnosis of sepsis , started on IVF and IV antibiotics.She responded to IVF resuscitation Physical exam showed purulent secretions under the dressing over the recently closed trache to anterior neck . Blood, urine and cultures from trache secretion sent. 1. Sepsis associated hypotension sec to Pneumonia nd poss Trach site infection Cultures sent F/u blood , urine s/c wound cx: Gram stain : no organism CXR showed no infiltrates responded to IVF ID and pulmonary consulted continue daily wound care to trache area on Vanco, Zosyn and Cipro iv 2. Acute Tracheobronhitis ID consulted Continue IV antibiotics 3. Chronic respiratory insufficiency most likely secondary to COPD patient was heavy smoker and quit just recently on high flow O2 20 LPM FIO2 40 % [facility] consulted 4.CHF (congestive heart failure) stable Chronic Systolic and Diastolic Heart Failure BNP slightly elevated LAST ECHO 06/14/2016: Mild to moderate decreased LVEF 40-45%, RV moderately dilated, decreased RV function, Diastolic inflow pattern restrictive Lopressor 6.25mg q12 and Spironolactone 25 mg po daily on hold due to hypotension Monitor for fluid overload Lasix as necessary 5.Hx Bilateral Mastectomy, breast CA with chronic lymphedema RUE and peripheral neuropathy Continue Arimidex 1 mg po Daily Continue Gabapentin 600 mg po q8h 6.Hypertension Metoprolol on hold due to hypotension 7.Hyperthyroidism was on Tapazole 5 mg po daily last admission Check TSH and consult Dr. Vu if necessary VTE ppx Lovenox
--- NOTE | 2016-11-11 09:36 | CP.PCM.PN ---
Subjective - Date & Time of Evaluation Date of Evaluation: 11/11/16 Time of Evaluation: 09:25 - Subjective Subjective: Appears comfortable. Remains afebrile, normotensive, occasional mild tachycardia. Labs show hypokalemia and improving leukocutosis. Culture sent to lab yesterday from trach stoma, reports pending. Able to speak w/o difficulty. Trach stoma with tiny residual defect. 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 Eating breakfast, bowel and bladder function are good. Today's CXR shows increased BV markings are seen in the RLL (chronic) and blunted left CP angle. Trach stoma is clean. Neck is supple. Breath sounds are diminished bilaterally. No audible wheezing or bronchial breathing. Few scattered rhonchi, rare dependant dry rales. Chronic lymphedema RUE unchanged, no edema LE's, no cyanosis. Continue present regimen. Await culture reports. Physical therapy. Encourage PO intake. OOB to chair as tolerated. May transfer out of ICU. Trach defect should be completely closed in another day or two. DX: Acute suppurative tracheobronchitis, RLL pnumonia, sepsis - improving. COPD with chronic respiratory insufficiency. Residual tracheostomy defect - post recent decanulation. Electrolyte imbalance - hypokalemia. Objective - Vital Signs/Intake and Output Vital Signs (last 24 hours): Temp Pulse Resp BP Pulse Ox 98.2 F 86 17 111/60 96 11/11/16 08:00 11/11/16 08:00 11/11/16 08:00 11/11/16 08:00 11/11/16 08:00 Intake and Output: 11/10/16 11/11/16 23:59 11:59 Intake Total 555 508 Output Total 450 600 Balance 105 -92 - Medications Medications: Current Medications Acetaminophen (Tylenol 325mg Tab) 975 mg PO ONCE PRN PRN Reason: Fever >100.4 F Last Admin: 11/09/16 19:21 Dose: 975 mg Acetaminophen (Tylenol 325mg Tab) 650 mg PO Q6H PRN PRN Reason: Pain, Mild (1-3) Last Admin: 11/11/16 05:22 Dose: 650 mg Acetaminophen (Tylenol 650 Mg Supp) 650 mg [place] Q6H PRN PRN Reason: Fever >100.4 F Albuterol/Ipratropium (Duoneb 3 Mg/0.5 Mg (3 Ml) Ud) 3 ml INH RQ6 PRN PRN Reason: Shortness of Breath Albuterol/Ipratropium (Duoneb 3 Mg/0.5 Mg (3 Ml) Ud) 3 ml INH RQID [facility] Last Admin: 11/11/16 07:51 Dose: 3 ml Enoxaparin Sodium (Lovenox) 40 mg SC DAILY [facility] PRN Reason: Protocol Last Admin: 11/11/16 08:07 Dose: 40 mg Famotidine (Pepcid) 40 mg PO DAILY [facility] Last Admin: 11/11/16 08:09 Dose: 40 mg Fluticasone Propionate (Flonase) 2 spr VON DAILY [facility] Last Admin: 11/11/16 08:08 Dose: 2 spr Gabapentin (Neurontin) 600 mg PO Q8 [facility] Last Admin: 11/11/16 08:09 Dose: 600 mg Ciprofloxacin (Cipro 400mg/200ml Dsw) 400 mg in 200 mls @ 200 mls/hr IVPB Q12 [facility] Last Admin: 11/11/16 08:07 Dose: 200 mls/hr Vancomycin HCl 1 gm/ Sodium (Chloride) 250 mls @ 166.667 mls/hr IVPB Q12 [facility] Last Admin: 11/11/16 08:10 Dose: 166.667 mls/hr Piperacillin Sod/Tazobactam (Sod 3.375 gm/ Sodium Chloride) 100 mls @ 100 mls/ hr IVPB Q6 [facility] Last Admin: 11/11/16 04:05 Dose: 100 mls/hr Lidocaine (Lidoderm) 1 ea TD DAILY [facility] Last Admin: 11/11/16 08:09 Dose: Not Given Magnesium Hydroxide (Milk Of Magnesia) 30 ml PO DAILY PRN PRN Reason: Constipation Methimazole (Tapazole) 5 mg PO DAILY [facility] Last Admin: 11/11/16 08:09 Dose: 5 mg Morphine Sulfate (Morphine) 2 mg IVP Q4 PRN PRN Reason: Pain, Mild (1-3) Last Admin: 11/10/16 07:06 Dose: 2 mg Potassium Chloride (Potassium Chloride Oral Soln) 20 meq PO ONCE ONE Stop: 11/11/16 13:01 - Labs Labs: 11/11/16 04:20 11/11/16 04:20 PT 16.0 Seconds (9.8-13.1) H 11/09/16 19:16 INR 1.4 (0.9-1.2) H 11/09/16 19:16 APTT 32.7 Seconds (25.6-37.1) 11/09/16 19:16 Assessment and Plan (1) Sepsis associated hypotension Status: Acute (2) Acute bronchitis with chronic obstructive pulmonary disease (COPD) Status: Acute (3) Hyperthyroidism Status: Chronic
--- NOTE | 2016-11-11 12:39 | RAD ---
HISTORY: r/o CHF, PNA . Portable upright study 04:30. COMPARISON: November 09, 2016 FINDINGS: LUNGS: Progressive consolidative changes both lower lobes. PLEURA: No significant pleural effusion identified, no pneumothorax apparent. CARDIOVASCULAR: No radiographic findings to suggest acute or significant cardiovascular disease. OSSEOUS STRUCTURES: No significant abnormalities. VISUALIZED UPPER ABDOMEN: Normal. OTHER FINDINGS: None. IMPRESSION: Worsening lower lobe infiltrates.
[2016-11-11 12:58] LABS: BLOOD UREA NITROGEN 10 mg/dl (7-17); CALCIUM 8.7 mg/dL (8.4-10.2); GFR AFRICAN-AMERICAN > 60; GFR NON-AFRICAN AMERICAN > 60; MAGNESIUM 2.3 MG/DL (1.6-2.3)
[2016-11-11] MEDS: Saccharomyces Boulardi 250 mg Cap PO SCH (17:07)
--- NOTE | 2016-11-11 20:15 | CP.PCM.PN ---
Subjective - Date & Time of Evaluation Date of Evaluation: 11/11/16 Time of Evaluation: 20:14 - Subjective Subjective: ID NOTE CONTINUES TO HAVE STAPH AUREUS IN CULTURES CONTINUE VANCOMYCIN D/C CIPRO ADD CEFTAZADIME Objective - Vital Signs/Intake and Output Vital Signs (last 24 hours): Temp Pulse Resp BP Pulse Ox 99.8 F H 99 H 18 104/57 L 97 11/11/16 16:00 11/11/16 18:00 11/11/16 20:06 11/11/16 18:00 11/11/16 18:00 Intake and Output: 11/11/16 11/12/16 18:59 06:59 Intake Total 830 Output Total 100 Balance 730 - Medications Medications: Current Medications Acetaminophen (Tylenol 325mg Tab) 975 mg PO ONCE PRN PRN Reason: Fever >100.4 F Last Admin: 11/09/16 19:21 Dose: 975 mg Acetaminophen (Tylenol 325mg Tab) 650 mg PO Q6H PRN PRN Reason: Pain, Mild (1-3) Last Admin: 11/11/16 05:22 Dose: 650 mg Acetaminophen (Tylenol 650 Mg Supp) 650 mg [place] Q6H PRN PRN Reason: Fever >100.4 F Albuterol/Ipratropium (Duoneb 3 Mg/0.5 Mg (3 Ml) Ud) 3 ml INH RQ6 PRN PRN Reason: Shortness of Breath Albuterol/Ipratropium (Duoneb 3 Mg/0.5 Mg (3 Ml) Ud) 3 ml INH RQID [facility] Last Admin: 11/11/16 16:04 Dose: 3 ml Enoxaparin Sodium (Lovenox) 40 mg SC DAILY [facility] PRN Reason: Protocol Last Admin: 11/11/16 08:07 Dose: 40 mg Famotidine (Pepcid) 40 mg PO DAILY [facility] Last Admin: 11/11/16 08:09 Dose: 40 mg Fluticasone Propionate (Flonase) 2 spr VON DAILY [facility] Last Admin: 11/11/16 08:08 Dose: 2 spr Gabapentin (Neurontin) 600 mg PO Q8 [facility] Last Admin: 11/11/16 17:07 Dose: 600 mg Ciprofloxacin (Cipro 400mg/200ml Dsw) 400 mg in 200 mls @ 200 mls/hr IVPB Q12 [facility] Last Admin: 11/11/16 08:07 Dose: 200 mls/hr Vancomycin HCl 1 gm/ Sodium (Chloride) 250 mls @ 166.667 mls/hr IVPB Q12 [facility] Last Admin: 11/11/16 08:10 Dose: 166.667 mls/hr Piperacillin Sod/Tazobactam (Sod 3.375 gm/ Sodium Chloride) 100 mls @ 100 mls/ hr IVPB Q6 [facility] Last Admin: 11/11/16 17:07 Dose: 100 mls/hr Lidocaine (Lidoderm) 1 ea TD DAILY [facility] Last Admin: 11/11/16 08:09 Dose: Not Given Magnesium Hydroxide (Milk Of Magnesia) 30 ml PO DAILY PRN PRN Reason: Constipation Methimazole (Tapazole) 5 mg PO DAILY [facility] Last Admin: 11/11/16 08:09 Dose: 5 mg Morphine Sulfate (Morphine) 2 mg IVP Q4 PRN PRN Reason: Pain, Mild (1-3) Last Admin: 11/10/16 07:06 Dose: 2 mg Saccharomyces Boulardii (Florastor) 250 mg PO BID [facility] Last Admin: 11/11/16 17:07 Dose: 250 mg - Labs Labs: 11/11/16 04:20 11/11/16 12:30 PT 16.0 Seconds (9.8-13.1) H 11/09/16 19:16 INR 1.4 (0.9-1.2) H 11/09/16 19:16 APTT 32.7 Seconds (25.6-37.1) 11/09/16 19:16
[2016-11-12] MEDS: Piperacillin/Tazobact 3.375 GM in Sodium Chloride 0.9% 100 ML IVPB SCH ×4 (03:59→23:00)
[2016-11-12 05:42] LABS: BASO % 0.3 % (0.0-2.0); EOS # 0.3 K/uL (0.0-0.7); EOS % 2.3 % (0.0-4.0); HEMOGLOBIN 10.5 g/dL (12.0-16.0); LYMPH # 0.7 K/uL (1.0-4.3); LYMPH % 6.4 % (20.0-40.0); MEAN CELL VOLUME 92.6 fl (81.0-99.0); MEAN CORPUSCULAR HEMOGLOBIN 29.3 pg (27.0-31.0); MEAN CORPUSCULAR HGB CONC 31.6 g/dL (33.0-37.0); MEAN PLATELET VOLUME 8.1 fl (7.2-11.7); MONO # 1.1 K/uL (0.0-0.8); MONO % 9.2 % (0.0-10.0); NEUT # 9.5 K/uL (1.8-7.0); NEUT % 81.8 % (50.0-75.0); RBC 3.58 Mil/uL (3.80-5.20); RED CELL DISTRIBUTION WIDTH 15.4 % (11.5-14.5); WHITE BLOOD COUNT 11.6 K/uL (4.8-10.8)
[2016-11-12 05:47] LABS: ALB/GLOB RATIO 0.9 (1.0-2.1); ALBUMIN 2.3 g/dL (3.5-5.0); ALT/SGPT 32 U/L (9-52); AST/SGOT 12 U/L (14-36); BLOOD UREA NITROGEN 7 mg/dl (7-17); CALCIUM 7.5 mg/dL (8.4-10.2); GFR AFRICAN-AMERICAN > 60; GFR NON-AFRICAN AMERICAN > 60
[2016-11-12] MEDS ORDERED: Potassium Chloride 20 mEq ER Tab PO ONE (08:12)
[2016-11-12] MEDS: Saccharomyces Boulardi 250 mg Cap PO SCH ×2 (08:54→16:32)
[2016-11-12] MEDS: Lidocaine 5% Patch TD SCH (08:55)
[2016-11-12] MEDS: Enoxaparin 40 mg Syringe SC SCH (08:56)
[2016-11-12] MEDS: methIMAzole 5 MG TAB PO SCH (08:58)
[2016-11-12] MEDS: Albuterol-Ipratrop 3 mg / 0.5 (3 ml) UD INH SCH ×4 (09:29→19:05)
--- NOTE | 2016-11-12 11:09 | CP.PCM.PN ---
Subjective - Date & Time of Evaluation Date of Evaluation: 11/12/16 Time of Evaluation: 11:00 - Subjective Subjective: No fever feels better remains on High Flow Oxygen 10LPM, 40% FiO2 still with cough no CP no abd pain soft sandy this am Objective - Vital Signs/Intake and Output Vital Signs (last 24 hours): Temp Pulse Resp BP Pulse Ox 99 F 89 16 97/49 L 97 11/12/16 04:00 11/12/16 06:00 11/12/16 08:26 11/12/16 06:00 11/12/16 06:00 Intake and Output: 11/12/16 11/12/16 06:59 18:59 Intake Total 618 Output Total 325 Balance 293 - Medications Medications: Current Medications Acetaminophen (Tylenol 325mg Tab) 975 mg PO ONCE PRN PRN Reason: Fever >100.4 F Last Admin: 11/09/16 19:21 Dose: 975 mg Acetaminophen (Tylenol 325mg Tab) 650 mg PO Q6H PRN PRN Reason: Pain, Mild (1-3) Last Admin: 11/12/16 07:23 Dose: 650 mg Acetaminophen (Tylenol 650 Mg Supp) 650 mg [place] Q6H PRN PRN Reason: Fever >100.4 F Albuterol/Ipratropium (Duoneb 3 Mg/0.5 Mg (3 Ml) Ud) 3 ml INH RQ6 PRN PRN Reason: Shortness of Breath Albuterol/Ipratropium (Duoneb 3 Mg/0.5 Mg (3 Ml) Ud) 3 ml INH RQID [facility] Last Admin: 11/12/16 09:29 Dose: 3 ml Enoxaparin Sodium (Lovenox) 40 mg SC DAILY [facility] PRN Reason: Protocol Last Admin: 11/12/16 08:56 Dose: 40 mg Famotidine (Pepcid) 40 mg PO DAILY [facility] Last Admin: 11/12/16 08:57 Dose: 40 mg Fluticasone Propionate (Flonase) 2 spr VON DAILY [facility] Last Admin: 11/12/16 08:53 Dose: 2 spr Gabapentin (Neurontin) 600 mg PO Q8 [facility] Last Admin: 11/12/16 08:57 Dose: 600 mg Vancomycin HCl 1 gm/ Sodium (Chloride) 250 mls @ 166.667 mls/hr IVPB Q12 [facility] Last Admin: 11/12/16 09:36 Dose: 166.667 mls/hr Piperacillin Sod/Tazobactam (Sod 3.375 gm/ Sodium Chloride) 100 mls @ 100 mls/ hr IVPB Q6 [facility] Last Admin: 11/12/16 09:37 Dose: 100 mls/hr Ceftazidime 1 gm/ Sodium (Chloride) 100 mls @ 200 mls/hr IVPB Q12 [facility] Last Admin: 11/12/16 09:38 Dose: 200 mls/hr Lidocaine (Lidoderm) 1 ea TD DAILY [facility] Last Admin: 11/12/16 08:55 Dose: Not Given Magnesium Hydroxide (Milk Of Magnesia) 30 ml PO DAILY PRN PRN Reason: Constipation Methimazole (Tapazole) 5 mg PO DAILY [facility] Last Admin: 11/12/16 08:58 Dose: 5 mg Morphine Sulfate (Morphine) 2 mg IVP Q4 PRN PRN Reason: Pain, Mild (1-3) Last Admin: 11/10/16 07:06 Dose: 2 mg Saccharomyces Boulardii (Florastor) 250 mg PO BID [facility] Last Admin: 11/12/16 08:54 Dose: 250 mg - Labs Labs: 11/12/16 04:20 11/12/16 04:20 PT 16.0 Seconds (9.8-13.1) H 11/09/16 19:16 INR 1.4 (0.9-1.2) H 11/09/16 19:16 APTT 32.7 Seconds (25.6-37.1) 11/09/16 19:16 - Constitutional Appears: No Acute Distress - Head Exam Head Exam: NORMAL INSPECTION, NORMOCEPHALIC - Eye Exam Eye Exam: EOMI, Normal appearance Pupil Exam: NORMAL ACCOMODATION - ENT Exam ENT Exam: Mucous Membranes Moist, Normal External Ear Exam - Neck Exam Neck Exam: Full ROM. absent: Meningismus Additional comments: Trach site - opening very small, very minimal drainage - Respiratory Exam Respiratory Exam: Rales, Rhonchi, NORMAL BREATHING PATTERN. absent: Wheezes, Respiratory Distress - Cardiovascular Exam Cardiovascular Exam: REGULAR RHYTHM, +S1, +S2 - GI/Abdominal Exam GI & Abdominal Exam: Soft, Normal Bowel Sounds. absent: Tenderness - Extremities Exam Extremities Exam: Normal Capillary Refill. absent: Calf Tenderness, Pedal Edema Additional comments: RUE edema Assessment and Plan - Assessment and Plan (Free Text) Assessment: 66 y/o female with extensive PMH and long hospitalizations , Chronic Respiratory Failure with Trach placed 07/2016 and decanulation 11/04/16 ( 6 days ago ) , s/p gastric tube placement and removal , CHF (systolic+diastolic), COPD , bilateral metastatic breast CA to shoulder s/p chemo/rad 8 years ago (s/p humerus resection) with chronic lymphedema RUE, HTN, hyperthyroidism, tachycardia/SVT, R cephalic vein thrombosis, anxiety, came to ER with fever , chills malaise and myalgia . Patient found to be hypotensive, tachycardic, Febril etmax 102 WBC 22 K . Patient admitted with diagnosis of sepsis , started on IVF and IV antibiotics.She responded to IVF resuscitation Physical exam showed purulent secretions under the dressing over the recently closed trache to anterior neck. 1. Sepsis associated hypotension sec to Pneumonia and poss Trach site infection Blood and Urine c/s; neg wound cx: MSSA CXR lower lobe infiltrates responded to IVF ID and pulmonary consulted continue daily wound care to trache area on Vanco, Zosyn and Cipro iv 2. Acute Tracheobronhitis ID consulted Continue IV antibiotics 3. Chronic respiratory insufficiency most likely secondary to COPD patient was heavy smoker and quit just recently on high flow O2 10 LPM FIO2 40 % [facility] consulted - Dr Mattson now covering for Dr Benz 4.CHF (congestive heart failure) stable Chronic Systolic and Diastolic Heart Failure BNP slightly elevated LAST ECHO 06/14/2016: Mild to moderate decreased LVEF 40-45%, RV moderately dilated, decreased RV function, Diastolic inflow pattern restrictive Lopressor 6.25mg q12 and Spironolactone 25 mg po daily on hold due to hypotension Monitor for fluid overload Lasix as necessary 5.Hx Bilateral Mastectomy, breast CA with chronic lymphedema RUE and peripheral neuropathy Continue Arimidex 1 mg po Daily Continue Gabapentin 600 mg po q8h 6.Hypertension Metoprolol on hold due to hypotension 7.Hyperthyroidism was on Tapazole 5 mg po daily last admission Check TSH and consult Dr. Vu if necessary VTE ppx Lovenox Of pt continues to improve, plan to d/c pt back to [facility] for IV abx tx
--- NOTE | 2016-11-12 16:16 | CP.CCUPN ---
CCU Subjective - Physician Review Subjective (Free Text): Another uneventful night with no new complaints, no further recurrence of chest discomfort, FiO2 remains on 40% on HFNC, SPO2 96%. No other distress, cough production is fair, has been able to expectorate. T max 99.9F yesterday and no recurrent fever spikes similar to admission temp of 103F. Tolerated getting OOB to chair over the past 2 days. ROS: as above, no other pertinent negs or positives on 10+ system review. PMSFH: All nursing and physician documentation for this admission reviewed, no new pertinent info relevant to current medical problems noted. 11/12/16 16:16 CCU Objective - Vital Signs / Intake & Output Vital Signs (Last 4 hours): Vital Signs Temp Pulse Resp BP Pulse Ox 11/12/16 15:51 97.5 F L 104 H 27 H 125/68 98 11/12/16 14:03 91 L Intake and Output (Last 8hrs): Intake & Output 11/12/16 11/12/16 11/12/16 06:59 14:59 22:59 Intake Total 258 Output Total 175 Balance 83 Weight 103 lb Intake: IV 8 Intake, Piggyback 200 Oral 50 Output: Urine 175 Urine, Voided 175 Other: # Bowel Movements 1 - Physical Exam Pupils: Positive for: PERRL Extroacular Muscles: Positive for: EOMI Conjunctiva: Positive for: Normal Ears: Positive for: Normal Mouth: Positive for: Moist Mucous Membranes. Negative for: Drooling Pharnyx: Positive for: Normal. Negative for: Muffled/Hoarse Voice, Strider Neck: Negative for: JVD, Lymphadenopathy, Trachea Midline Respiratory/Chest: Positive for: Decreased Breath Sounds, Other (Trach stoma remnant intatc, no erythema nor tenderness). Negative for: Clear to Auscultation, Respiratory Distress, Wheezes Cardiovascular: Positive for: Regular Rate and Rhythm, Tachycardic Abdomen: Positive for: Normal Bowel Sounds Upper Extremity: Positive for: Edema, Other (RUE with chronic edema / lyphedema changes) Lower Extremity: Positive for: NORMAL PULSES. Negative for: Edema, CALF TENDERNESS, Cyanosis Neurological: Positive for: GCS=15, Motor Func Grossly Intact, Normal Sensory Function Skin: Positive for: Warm. Negative for: Rashes, Diaphoretic - Medications Active Medications: Active Medications Generic Name Dose Route Start Last Admin Trade Name Freq PRN Reason Stop Dose Admin Acetaminophen 975 mg 11/09/16 18:41 11/09/16 19:21 Tylenol 325mg Tab PO 975 mg ONCE PRN Administration Fever >100.4 F Acetaminophen 650 mg 11/09/16 21:26 11/12/16 07:23 Tylenol 325mg Tab PO 650 mg Q6H PRN Administration Pain, Mild (1-3) Acetaminophen 650 mg 11/09/16 21:26 Tylenol 650 Mg Supp [place] Q6H PRN Fever >100.4 F Albuterol/Ipratropium 3 ml 11/09/16 21:30 Duoneb 3 Mg/0.5 Mg (3 Ml) Ud INH RQ6 PRN Shortness of Breath Albuterol/Ipratropium 3 ml 11/10/16 09:00 11/12/16 15:39 Duoneb 3 Mg/0.5 Mg (3 Ml) Ud INH 3 ml RQID [facility] Administration Enoxaparin Sodium 40 mg 11/10/16 09:00 11/12/16 08:56 Lovenox SC 40 mg DAILY [facility] Administration Protocol Famotidine 40 mg 11/10/16 09:00 11/12/16 08:57 Pepcid PO 40 mg DAILY [facility] Administration Fluticasone Propionate 2 spr 11/10/16 09:00 11/12/16 08:53 Flonase VON 2 spr DAILY [facility] Administration Gabapentin 600 mg 11/10/16 01:00 11/12/16 08:57 Neurontin PO 600 mg Q8 [facility] Administration Vancomycin HCl 1 gm/ Sodium 250 mls @ 166.667 mls/hr 11/10/16 09:00 11/12/16 09:36 Chloride IVPB 166.667 mls/hr Q12 [facility] Administration Piperacillin Sod/Tazobactam 100 mls @ 100 mls/hr 11/09/16 22:00 11/12/16 09: 37 Sod 3.375 gm/ Sodium Chloride IVPB 100 mls/hr Q6 [facility] Administration Ceftazidime 1 gm/ Sodium 100 mls @ 200 mls/hr 11/11/16 21:00 11/12/16 09:38 Chloride IVPB 200 mls/hr Q12 [facility] Administration Lactobacillus Acidophilus 1 cap 11/12/16 17:00 Bacid Acidophilus PO BID [facility] Lidocaine 1 ea 11/10/16 09:00 11/12/16 08:55 Lidoderm TD Not Given DAILY [facility] Magnesium Hydroxide 30 ml 11/09/16 21:32 Milk Of Magnesia PO DAILY PRN Constipation Methimazole 5 mg 11/11/16 09:00 11/12/16 08:58 Tapazole PO 5 mg DAILY [facility] Administration Morphine Sulfate 2 mg 11/10/16 07:00 11/10/16 07:06 Morphine IVP 2 mg Q4 PRN Administration Pain, Mild (1-3) Saccharomyces Boulardii 250 mg 11/11/16 17:00 11/12/16 08:54 Florastor PO 250 mg BID [facility] Administration - Patient Studies Lab Studies: Microbiology Studies 11/10/16 09:56 Gram Stain - Final Neck Wound Culture - Final Staphylococcus Aureus 11/10/16 14:44 Urine Culture - Final Urine,Gutierrez No Growth (<1,000 CFU/ML) 11/09/16 21:20 Urine Culture - Final Urine No Growth (<1,000 CFU/ML) Lab Studies 11/12/16 11/12/16 11/11/16 Range/Units 04:20 04:20 12:30 WBC 11.6 H (4.8-10.8) K/uL RBC 3.58 L (3.80-5.20) Mil/uL Hgb 10.5 L (12.0-16.0) g/dL Hct 33.1 L (34.0-47.0) % MCV 92.6 (81.0-99.0) fl MCH 29.3 (27.0-31.0) pg MCHC 31.6 L (33.0-37.0) g/dL RDW 15.4 H (11.5-14.5) % Plt Count 221 (130-400) K/uL MPV 8.1 (7.2-11.7) fl Neut % (Auto) 81.8 H (50.0-75.0) % Lymph % (Auto) 6.4 L (20.0-40.0) % [place] % (Auto) 9.2 (0.0-10.0) % Eos % (Auto) 2.3 (0.0-4.0) % Baso % (Auto) 0.3 (0.0-2.0) % Neut # 9.5 H (1.8-7.0) K/uL Lymph # 0.7 L (1.0-4.3) K/uL [place] # 1.1 H (0.0-0.8) K/uL Eos # 0.3 (0.0-0.7) K/uL Baso # 0.0 (0.0-0.2) K/uL Sodium 144 137 (132-148) mmol/l Potassium 3.2 L 3.9 (3.6-5.0) MMOL/L Chloride 109 H 103 (98-107) mmol/L Carbon Dioxide 23 28 (22-30) mmol/L Anion Gap 15 10 (10-20) BUN 7 10 (7-17) mg/dl Creatinine 0.5 L 0.6 L (0.7-1.2) mg/dL Est GFR ( Amer) > 60 > 60 Est GFR (Non-Af Amer) > 60 > 60 Random Glucose 84 112 H (65-105) mg/dL Calcium 7.5 L 8.7 (8.4-10.2) mg/dL Phosphorus 2.4 L (2.5-4.5) mg/dl Magnesium 2.3 (1.6-2.3) MG/DL Total Bilirubin 0.3 (0.2-1.3) mg/dl AST 12 L D (14-36) U/L ALT 32 (9-52) U/L Alkaline Phosphatase 76 (38-126) U/L Troponin I < 0.0120 (0.00-0.120) ng/mL Total Protein 5.0 L (6.3-8.2) G/DL Albumin 2.3 L D (3.5-5.0) g/dL Globulin 2.7 (2.2-3.9) gm/dL Albumin/Globulin Ratio 0.9 L (1.0-2.1) TSH 3rd Generation < 0.02 L (0.46-4.68) mIU/ML Laboratory Results - last 24 hr 11/11/16 11/12/16 11/12/16 12:30 04:20 04:20 WBC 11.6 H RBC 3.58 L Hgb 10.5 L Hct 33.1 L MCV 92.6 MCH 29.3 MCHC 31.6 L RDW 15.4 H Plt Count 221 MPV 8.1 Neut % (Auto) 81.8 H Lymph % (Auto) 6.4 L [place] % (Auto) 9.2 Eos % (Auto) 2.3 Baso % (Auto) 0.3 Neut # 9.5 H Lymph # 0.7 L [place] # 1.1 H Eos # 0.3 Baso # 0.0 Sodium 137 144 Potassium 3.9 3.2 L Chloride 103 109 H Carbon Dioxide 28 23 Anion Gap 10 15 BUN 10 7 Creatinine 0.6 L 0.5 L Est GFR ( Amer) > 60 > 60 Est GFR (Non-Af Amer) > 60 > 60 Random Glucose 112 H 84 Calcium 8.7 7.5 L Phosphorus 2.4 L Magnesium 2.3 Total Bilirubin 0.3 AST 12 L D ALT 32 Alkaline Phosphatase 76 Troponin I < 0.0120 Total Protein 5.0 L Albumin 2.3 L D Globulin 2.7 Albumin/Globulin Ratio 0.9 L TSH 3rd Generation < 0.02 L Review of Systems - Review of Systems Review of Systems: As above. Critical Care Progress Note - Nutrition Nutrition: Nutrition Category Date Time Status Heart Healthy Diet [DIET] Diets 11/09/16 Breakfast Active Assessment/Plan - Assessment and Plan (Free Text) Assessment: 1. Chest pain syndrome, chronic and recurrent, w/u negative several times in the past for acute PTE 2. Acute on Chronic Resp Insufficiency 2 COPD, r/o Tracheobronchitis 3. Sepsis 2 Pulmonary source ( tracheobronchitis / Pneumonitis) 4. Hypokalemia 5. s/p Trach Decannulation Plan: 1. Taper HFNC to 40% and 10LPM today, if tolerated, expect further weaning to NC at 5 LPM, before transferring out of ICU. 2. Lasix prn. 3. Empiric HCAP abx coverage noted: Zosyn/ Vanco/ Cipro. CXR stable, no worse. WBCs decreasing still. 4. Cultures from trach stoma show S. aureus. 5. K supplemented again, and KPhos PO ordered ( PO route over IV route 2 phlebitic discomfort)
[2016-11-12] MEDS: Lactobacillus Acidophilus 500 MU Cap PO SCH (16:33)
[2016-11-12] MEDS ORDERED: Lidocaine 5% Patch TD STA (17:01)
[2016-11-13] MEDS: Piperacillin/Tazobact 3.375 GM in Sodium Chloride 0.9% 100 ML IVPB SCH ×4 (04:18→22:00)
[2016-11-13 06:42] LABS: BASO % 0.4 % (0.0-2.0); EOS # 0.2 K/uL (0.0-0.7); EOS % 2.1 % (0.0-4.0); HEMOGLOBIN 12.3 g/dL (12.0-16.0); LYMPH # 0.8 K/uL (1.0-4.3); LYMPH % 6.9 % (20.0-40.0); MEAN CELL VOLUME 91.9 fl (81.0-99.0); MEAN CORPUSCULAR HEMOGLOBIN 29.1 pg (27.0-31.0); MEAN CORPUSCULAR HGB CONC 31.7 g/dL (33.0-37.0); MEAN PLATELET VOLUME 7.4 fl (7.2-11.7); MONO # 1.8 K/uL (0.0-0.8); MONO % 15.7 % (0.0-10.0); NEUT # 8.4 K/uL (1.8-7.0); NEUT % 74.9 % (50.0-75.0); PLATELET COUNT 286 K/uL (130-400); RBC 4.21 Mil/uL (3.80-5.20); RED CELL DISTRIBUTION WIDTH 15.4 % (11.5-14.5); WHITE BLOOD COUNT 11.2 K/uL (4.8-10.8)
[2016-11-13 06:56] LABS: BLOOD UREA NITROGEN 8 mg/dl (7-17); CALCIUM 8.1 mg/dL (8.4-10.2); GFR AFRICAN-AMERICAN > 60; GFR NON-AFRICAN AMERICAN > 60; MAGNESIUM 1.9 MG/DL (1.6-2.3)
--- NOTE | 2016-11-13 07:13 | CP.PCM.PN ---
Subjective - Date & Time of Evaluation Date of Evaluation: 11/13/16 Time of Evaluation: 10:30 - Subjective Subjective: Patient seen and examined bedside. Feeling better. Still with some left sided chest pain radiating to the back overnight . Tmax 101 last 12 hours.Able to expectorate thick yellowish sputum. denies any SOB or chest pain at present Saturating 93-98 % on 5 L O2 via NC Tachycardic HR ranging 95-105, ST on monitor Objective - Vital Signs/Intake and Output Vital Signs (last 24 hours): Temp Pulse Resp BP Pulse Ox 98.4 F 98 H 21 120/68 97 11/13/16 04:00 11/13/16 06:00 11/13/16 06:00 11/13/16 06:00 11/13/16 06:00 Intake and Output: 11/13/16 11/13/16 06:59 18:59 Intake Total 635 Output Total 400 Balance 235 - Medications Medications: Current Medications Acetaminophen (Tylenol 325mg Tab) 975 mg PO ONCE PRN PRN Reason: Fever >100.4 F Last Admin: 11/09/16 19:21 Dose: 975 mg Acetaminophen (Tylenol 325mg Tab) 650 mg PO Q6H PRN PRN Reason: Pain, Mild (1-3) Last Admin: 11/13/16 06:00 Dose: 650 mg Acetaminophen (Tylenol 650 Mg Supp) 650 mg [place] Q6H PRN PRN Reason: Fever >100.4 F Albuterol/Ipratropium (Duoneb 3 Mg/0.5 Mg (3 Ml) Ud) 3 ml INH RQ6 PRN PRN Reason: Shortness of Breath Albuterol/Ipratropium (Duoneb 3 Mg/0.5 Mg (3 Ml) Ud) 3 ml INH RQID [facility] Last Admin: 11/12/16 19:05 Dose: 3 ml Enoxaparin Sodium (Lovenox) 40 mg SC DAILY [facility] PRN Reason: Protocol Last Admin: 11/12/16 08:56 Dose: 40 mg Famotidine (Pepcid) 40 mg PO DAILY [facility] Last Admin: 11/12/16 08:57 Dose: 40 mg Fluticasone Propionate (Flonase) 2 spr VON DAILY [facility] Last Admin: 11/12/16 08:53 Dose: 2 spr Gabapentin (Neurontin) 600 mg PO Q8 [facility] Last Admin: 11/13/16 00:15 Dose: 600 mg Vancomycin HCl 1 gm/ Sodium (Chloride) 250 mls @ 166.667 mls/hr IVPB Q12 [facility] Last Admin: 11/12/16 21:01 Dose: 166.667 mls/hr Piperacillin Sod/Tazobactam (Sod 3.375 gm/ Sodium Chloride) 100 mls @ 100 mls/ hr IVPB Q6 [facility] Last Admin: 11/13/16 04:18 Dose: 100 mls/hr Ceftazidime 1 gm/ Sodium (Chloride) 100 mls @ 200 mls/hr IVPB Q12 [facility] Last Admin: 11/12/16 20:23 Dose: 200 mls/hr Lactobacillus Acidophilus (Bacid Acidophilus) 1 cap PO BID [facility] Last Admin: 11/12/16 16:33 Dose: 1 cap Lidocaine (Lidoderm) 1 ea TD DAILY [facility] Last Admin: 11/12/16 08:55 Dose: Not Given Magnesium Hydroxide (Milk Of Magnesia) 30 ml PO DAILY PRN PRN Reason: Constipation Methimazole (Tapazole) 5 mg PO DAILY [facility] Last Admin: 11/12/16 08:58 Dose: 5 mg Morphine Sulfate (Morphine) 2 mg IVP Q4 PRN PRN Reason: Pain, Mild (1-3) Last Admin: 11/10/16 07:06 Dose: 2 mg Saccharomyces Boulardii (Florastor) 250 mg PO BID [facility] Last Admin: 11/12/16 16:32 Dose: 250 mg Sodium Phosphate (Potassium/Sodium Phosphate) 500 mg PO DAILY [facility] Stop: 11/14/16 16:16 Last Admin: 11/12/16 16:52 Dose: 500 mg - Labs Labs: 11/13/16 06:00 11/13/16 06:00 PT 16.0 Seconds (9.8-13.1) H 11/09/16 19:16 INR 1.4 (0.9-1.2) H 11/09/16 19:16 APTT 32.7 Seconds (25.6-37.1) 11/09/16 19:16 - Constitutional Appears: Non-toxic, No Acute Distress - Head Exam Head Exam: ATRAUMATIC, NORMAL INSPECTION, NORMOCEPHALIC - Eye Exam Eye Exam: EOMI, Normal appearance, PERRL Pupil Exam: NORMAL ACCOMODATION - ENT Exam ENT Exam: Mucous Membranes Moist, Normal Exam - Neck Exam Additional comments: anterior neck trache stoma appears clean - Cardiovascular Exam Cardiovascular Exam: Tachycardia, +S1, +S2. absent: JVD - GI/Abdominal Exam GI & Abdominal Exam: Soft, Normal Bowel Sounds. absent: Distended, Guarding, Tenderness, Rebound - Rectal Exam Rectal Exam: Deferred - Extremities Exam Extremities Exam: absent: Calf Tenderness, Pedal Edema Additional comments: right arm lymphedema - Back Exam Back Exam: NORMAL INSPECTION - Neurological Exam Neurological Exam: Alert, Awake, CN II-XII Intact, Oriented x3 - Psychiatric Exam Psychiatric exam: Normal Affect - Skin Skin Exam: Normal Color, Pallor, Warm Assessment and Plan - Assessment and Plan (Free Text) Assessment: 66 y/o female with extensive PMH and long hospitalizations , Chronic Respiratory Failure with Trach placed 07/2016 and decanulation 11/04/16 ( 1 week ago ) , s/p gastric tube placement and removal , CHF (systolic+diastolic), COPD , bilateral metastatic breast CA to shoulder s/p chemo/rad 8 years ago (s/p humerus resection) with chronic lymphedema RUE, HTN, hyperthyroidism, tachycardia/SVT, R cephalic vein thrombosis, anxiety, came to ER with fever , chills malaise and myalgia . Patient found to be hypotensive, tachycardic, Febrile Tmax 102 WBC 22 K . Patient admitted with diagnosis of sepsis , started on IVF and IV antibiotics.She responded to IVF resuscitation Physical exam showed purulent secretions under the dressing over the recently closed trache to anterior neck. 1. Sepsis secondary to tracheobronchitis and RLL Pneumonia Blood and Urine c/s; neg wound cx: MSSA CXR Right lower lobe infiltrate responded to IVF ID and pulmonary consulted continue daily wound care to trache area on Vanco, Zosyn and Ceftazidime iv 2. Acute Tracheobronhitis ID consulted Continue IV antibiotics 3. Chronic respiratory insufficiency most likely secondary to COPD patient was heavy smoker and quit just recently Tolerating 5 [facility] - Dr Mattson now covering for Dr Benz 4.CHF (congestive heart failure) stable Chronic Systolic and Diastolic Heart Failure BNP slightly elevated LAST ECHO 06/14/2016: Mild to moderate decreased LVEF 40-45%, RV moderately dilated, decreased RV function, Diastolic inflow pattern restrictive Lopressor 6.25mg q12 and Spironolactone 25 mg po daily on hold due to hypotension Monitor for fluid overload Lasix as necessary 5.Hx Bilateral Mastectomy, breast CA with chronic lymphedema RUE and peripheral neuropathy Continue Arimidex 1 mg po Daily Continue Gabapentin 600 mg po q8h 6.Hypertension Metoprolol on hold due to hypotension 7.Hyperthyroidism restarted Tapazole 5 mg po daily 8.VTE ppx Lovenox
[2016-11-13] MEDS: Albuterol-Ipratrop 3 mg / 0.5 (3 ml) UD INH SCH ×4 (08:11→19:14)
--- NOTE | 2016-11-13 08:21 | CP.CCUPN ---
CCU Subjective - Physician Review Events Since Last Encounter (Free Text): 11/13/16 08:18 Patient awake, no distress, follow command, no fever, on O2 supplement, no pressors, events reviewed CCU Objective - Vital Signs / Intake & Output Vital Signs (Last 4 hours): Vital Signs Pulse Resp BP Pulse Ox 11/13/16 06:00 98 H 21 120/68 97 Intake and Output (Last 8hrs): Intake & Output 11/12/16 11/13/16 11/13/16 22:59 06:59 14:59 Intake Total 352 283 Output Total 175 225 Balance 177 58 Weight 101 lb 4.8 oz Intake: IV 2 8 Intake, Piggyback 350 200 Oral 75 Output: Urine 175 225 Urine, Voided 175 225 - Physical Exam Pupils: Positive for: PERRL Extroacular Muscles: Positive for: EOMI Conjunctiva: Positive for: Normal Ears: Positive for: Normal Mouth: Positive for: Moist Mucous Membranes. Negative for: Drooling Pharnyx: Positive for: Normal. Negative for: Muffled/Hoarse Voice, Strider Neck: Negative for: JVD, Lymphadenopathy, Trachea Midline Respiratory/Chest: Positive for: Decreased Breath Sounds, Other (Trach stoma remnant intatc, no erythema nor tenderness). Negative for: Clear to Auscultation, Respiratory Distress, Wheezes Cardiovascular: Positive for: Regular Rate and Rhythm Abdomen: Positive for: Normal Bowel Sounds Upper Extremity: Positive for: Edema, Other (RUE with chronic edema / lyphedema changes) Lower Extremity: Positive for: NORMAL PULSES. Negative for: Edema, CALF TENDERNESS, Cyanosis Neurological: Positive for: GCS=15, Motor Func Grossly Intact, Normal Sensory Function Skin: Positive for: Warm. Negative for: Rashes, Diaphoretic - Medications Active Medications: Active Medications Generic Name Dose Route Start Last Admin Trade Name Freq PRN Reason Stop Dose Admin Acetaminophen 975 mg 11/09/16 18:41 11/09/16 19:21 Tylenol 325mg Tab PO 975 mg ONCE PRN Administration Fever >100.4 F Acetaminophen 650 mg 11/09/16 21:26 11/13/16 06:00 Tylenol 325mg Tab PO 650 mg Q6H PRN Administration Pain, Mild (1-3) Acetaminophen 650 mg 11/09/16 21:26 Tylenol 650 Mg Supp [place] Q6H PRN Fever >100.4 F Albuterol/Ipratropium 3 ml 11/09/16 21:30 Duoneb 3 Mg/0.5 Mg (3 Ml) Ud INH RQ6 PRN Shortness of Breath Albuterol/Ipratropium 3 ml 11/10/16 09:00 11/13/16 08:11 Duoneb 3 Mg/0.5 Mg (3 Ml) Ud INH 3 ml RQID ANDREAS Administration Enoxaparin Sodium 40 mg 11/10/16 09:00 11/12/16 08:56 Lovenox SC 40 mg DAILY ANDREAS Administration Protocol Famotidine 40 mg 11/10/16 09:00 11/12/16 08:57 Pepcid PO 40 mg DAILY ANDREAS Administration Fluticasone Propionate 2 spr 11/10/16 09:00 11/12/16 08:53 Flonase VON 2 spr DAILY ANDREAS Administration Gabapentin 600 mg 11/10/16 01:00 11/13/16 00:15 Neurontin PO 600 mg Q8 ANDREAS Administration Vancomycin HCl 1 gm/ Sodium 250 mls @ 166.667 mls/hr 11/10/16 09:00 11/12/16 21:01 Chloride IVPB 166.667 mls/hr Q12 ANDREAS Administration Piperacillin Sod/Tazobactam 100 mls @ 100 mls/hr 11/09/16 22:00 11/13/16 04: 18 Sod 3.375 gm/ Sodium Chloride IVPB 100 mls/hr Q6 ANDREAS Administration Ceftazidime 1 gm/ Sodium 100 mls @ 200 mls/hr 11/11/16 21:00 11/12/16 20:23 Chloride IVPB 200 mls/hr Q12 ANDREAS Administration Lactobacillus Acidophilus 1 cap 11/12/16 17:00 11/12/16 16:33 Bacid Acidophilus PO 1 cap BID ANDREAS Administration Lidocaine 1 ea 11/10/16 09:00 11/12/16 08:55 Lidoderm TD Not Given DAILY ANDREAS Magnesium Hydroxide 30 ml 11/09/16 21:32 Milk Of Magnesia PO DAILY PRN Constipation Methimazole 5 mg 11/11/16 09:00 11/12/16 08:58 Tapazole PO 5 mg DAILY ANDREAS Administration Morphine Sulfate 2 mg 11/10/16 07:00 11/10/16 07:06 Morphine IVP 2 mg Q4 PRN Administration Pain, Mild (1-3) Saccharomyces Boulardii 250 mg 11/11/16 17:00 11/12/16 16:32 Florastor PO 250 mg BID ANDREAS Administration Sodium Phosphate 500 mg 11/12/16 16:15 11/12/16 16:52 Potassium/Sodium Phosphate PO 11/14/16 16:16 500 mg DAILY ANDREAS Administration - Patient Studies Lab Studies: Microbiology Studies 11/12/16 09:11 Gram Stain - Final Sputum 11/10/16 09:56 Gram Stain - Final Neck Wound Culture - Final Staphylococcus Aureus Lab Studies 11/13/16 11/13/16 Range/Units 06:00 06:00 WBC 11.2 H (4.8-10.8) K/uL RBC 4.21 (3.80-5.20) Mil/uL Hgb 12.3 (12.0-16.0) g/dL Hct 38.7 (34.0-47.0) % MCV 91.9 (81.0-99.0) fl MCH 29.1 (27.0-31.0) pg MCHC 31.7 L (33.0-37.0) g/dL RDW 15.4 H (11.5-14.5) % Plt Count 286 (130-400) K/uL MPV 7.4 (7.2-11.7) fl Neut % (Auto) 74.9 (50.0-75.0) % Lymph % (Auto) 6.9 L (20.0-40.0) % [place] % (Auto) 15.7 H (0.0-10.0) % Eos % (Auto) 2.1 (0.0-4.0) % Baso % (Auto) 0.4 (0.0-2.0) % Neut # 8.4 H (1.8-7.0) K/uL Lymph # 0.8 L (1.0-4.3) K/uL [place] # 1.8 H (0.0-0.8) K/uL Eos # 0.2 (0.0-0.7) K/uL Baso # 0.0 (0.0-0.2) K/uL Sodium 142 (132-148) mmol/l Potassium 3.5 L (3.6-5.0) MMOL/L Chloride 106 (98-107) mmol/L Carbon Dioxide 29 (22-30) mmol/L Anion Gap 11 (10-20) BUN 8 (7-17) mg/dl Creatinine 0.7 (0.7-1.2) mg/dL Est GFR ( Amer) > 60 Est GFR (Non-Af Amer) > 60 Random Glucose 90 (65-105) mg/dL Calcium 8.1 L (8.4-10.2) mg/dL Magnesium 1.9 (1.6-2.3) MG/DL Laboratory Results - last 24 hr 11/13/16 11/13/16 06:00 06:00 WBC 11.2 H RBC 4.21 Hgb 12.3 Hct 38.7 MCV 91.9 MCH 29.1 MCHC 31.7 L RDW 15.4 H Plt Count 286 MPV 7.4 Neut % (Auto) 74.9 Lymph % (Auto) 6.9 L [place] % (Auto) 15.7 H Eos % (Auto) 2.1 Baso % (Auto) 0.4 Neut # 8.4 H Lymph # 0.8 L [place] # 1.8 H Eos # 0.2 Baso # 0.0 Sodium 142 Potassium 3.5 L Chloride 106 Carbon Dioxide 29 Anion Gap 11 BUN 8 Creatinine 0.7 Est GFR ( Amer) > 60 Est GFR (Non-Af Amer) > 60 Random Glucose 90 Calcium 8.1 L Magnesium 1.9 Critical Care Progress Note - Nutrition Nutrition: Nutrition Category Date Time Status Heart Healthy Diet [DIET] Diets 11/09/16 Breakfast Active Assessment/Plan - Assessment and Plan (Free Text) Assessment: A/P Chest pain syndrome, respiratory insufficiency, COPD, sepsis, trchiobronchitis/ pneumonitis, hypokalemia - O2 supplement - Continue meds - Pulmonary toilets - Follow up labs
[2016-11-13] MEDS: Lactobacillus Acidophilus 500 MU Cap PO SCH ×2 (09:24→16:50)
[2016-11-13] MEDS: Saccharomyces Boulardi 250 mg Cap PO SCH ×2 (09:25→16:51)
[2016-11-13] MEDS: Lidocaine 5% Patch TD SCH (09:26)
[2016-11-13] MEDS: methIMAzole 5 MG TAB PO SCH (09:28)
[2016-11-13] MEDS: Morphine 4 MG/ML VIAL IVP PRN ×2 (09:36→18:17)
[2016-11-13] MEDS: Enoxaparin 40 mg Syringe SC SCH (09:39)
[2016-11-13 13:21] LABS: BASOPHIL 1 % (0-2); LYMPHOCYTE 8 % (20-50); MONOCYTE 17 % (0-10); NEUTROPHIL 73 % (42-75); REACTIVE LYMPHOCYTES 1 % (0-0); TOTAL CELLS COUNTED 100
[2016-11-13 13:22] LABS: ANISOCYTOSIS SLIGHT; PLATELET ESTIMATE NORMAL (NORMAL)
[2016-11-14] MEDS: Piperacillin/Tazobact 3.375 GM in Sodium Chloride 0.9% 100 ML IVPB SCH ×2 (05:00→09:57)
[2016-11-14] MEDS: Albuterol-Ipratrop 3 mg / 0.5 (3 ml) UD INH SCH ×4 (08:00→19:12)
--- NOTE | 2016-11-14 08:09 | CP.CCUPN ---
CCU Subjective - Physician Review Events Since Last Encounter (Free Text): 11/14/16 08:09 Patient awake, no distress, follow command, no fever, on O2 supplement, no pressors, events reviewed CCU Objective - Vital Signs / Intake & Output Vital Signs (Last 4 hours): Vital Signs Temp Pulse Resp BP Pulse Ox 11/14/16 07:58 99.0 F 97 H 22 100/53 L 98 11/14/16 06:00 82 16 92/59 L 99 Intake and Output (Last 8hrs): Intake & Output 11/13/16 11/14/16 11/14/16 22:59 06:59 14:59 Intake Total 670 340 Output Total 800 750 Balance -130 -410 Intake: Intake, Piggyback 550 Oral 120 340 Output: Urine 800 750 Urethral (Gutierrez) 400 Urine, Voided 800 350 Other: # Bowel Movements 1 - Physical Exam Pupils: Positive for: PERRL Extroacular Muscles: Positive for: EOMI Conjunctiva: Positive for: Normal Ears: Positive for: Normal Mouth: Positive for: Moist Mucous Membranes. Negative for: Drooling Pharnyx: Positive for: Normal. Negative for: Muffled/Hoarse Voice, Strider Neck: Negative for: JVD, Lymphadenopathy, Trachea Midline Respiratory/Chest: Positive for: Decreased Breath Sounds, Other (Trach stoma remnant intatc, no erythema nor tenderness). Negative for: Clear to Auscultation, Respiratory Distress, Wheezes Cardiovascular: Positive for: Regular Rate and Rhythm Abdomen: Positive for: Normal Bowel Sounds Upper Extremity: Positive for: Edema, Other (RUE with chronic edema / lyphedema changes) Lower Extremity: Positive for: NORMAL PULSES. Negative for: Edema, CALF TENDERNESS, Cyanosis Neurological: Positive for: GCS=15, Motor Func Grossly Intact, Normal Sensory Function Skin: Positive for: Warm. Negative for: Rashes, Diaphoretic - Medications Active Medications: Active Medications Generic Name Dose Route Start Last Admin Trade Name Freq PRN Reason Stop Dose Admin Acetaminophen 975 mg 11/09/16 18:41 11/09/16 19:21 Tylenol 325mg Tab PO 975 mg ONCE PRN Administration Fever >100.4 F Acetaminophen 650 mg 11/09/16 21:26 11/13/16 06:00 Tylenol 325mg Tab PO 650 mg Q6H PRN Administration Pain, Mild (1-3) Acetaminophen 650 mg 11/09/16 21:26 11/13/16 23:57 Tylenol 650 Mg Supp [place] 650 mg Q6H PRN Administration Fever >100.4 F Albuterol/Ipratropium 3 ml 11/09/16 21:30 Duoneb 3 Mg/0.5 Mg (3 Ml) Ud INH RQ6 PRN Shortness of Breath Albuterol/Ipratropium 3 ml 11/10/16 09:00 11/13/16 19:14 Duoneb 3 Mg/0.5 Mg (3 Ml) Ud INH 3 ml RQID ANDREAS Administration Enoxaparin Sodium 40 mg 11/10/16 09:00 11/13/16 09:39 Lovenox SC 40 mg DAILY ANDREAS Administration Protocol Famotidine 40 mg 11/10/16 09:00 11/13/16 09:27 Pepcid PO 40 mg DAILY ANDREAS Administration Fluticasone Propionate 2 spr 11/10/16 09:00 11/13/16 09:25 Flonase VON 2 spr DAILY ANDREAS Administration Gabapentin 600 mg 11/10/16 01:00 11/13/16 23:59 Neurontin PO 600 mg Q8 ANDREAS Administration Vancomycin HCl 1 gm/ Sodium 250 mls @ 166.667 mls/hr 11/10/16 09:00 11/13/16 21:00 Chloride IVPB 166.667 mls/hr Q12 ANDREAS Administration Piperacillin Sod/Tazobactam 100 mls @ 100 mls/hr 11/09/16 22:00 11/14/16 05: 00 Sod 3.375 gm/ Sodium Chloride IVPB 100 mls/hr Q6 ANDREAS Administration Ceftazidime 1 gm/ Sodium 100 mls @ 200 mls/hr 11/11/16 21:00 11/13/16 21:00 Chloride IVPB 200 mls/hr Q12 ANDREAS Administration Lactobacillus Acidophilus 1 cap 11/12/16 17:00 11/13/16 16:50 Bacid Acidophilus PO 1 cap BID ANDREAS Administration Lidocaine 1 ea 11/10/16 09:00 11/13/16 09:26 Lidoderm TD 1 ea DAILY ANDREAS Administration Magnesium Hydroxide 30 ml 11/09/16 21:32 Milk Of Magnesia PO DAILY PRN Constipation Methimazole 5 mg 11/11/16 09:00 11/13/16 09:28 Tapazole PO 5 mg DAILY ANDREAS Administration Saccharomyces Boulardii 250 mg 11/11/16 17:00 11/13/16 16:51 Florastor PO 250 mg BID ANDREAS Administration Sodium Phosphate 500 mg 11/12/16 16:15 11/13/16 09:28 Potassium/Sodium Phosphate PO 11/14/16 16:16 500 mg DAILY ANDREAS Administration - Patient Studies Lab Studies: Lab Studies 11/13/16 Range/Units 06:00 Neutrophils % (Manual) 73 (42-75) % Lymphocytes % (Manual) 8 L (20-50) % Reactive Lymphs % 1 H (0-0) % Monocytes % (Manual) 17 H (0-10) % Basophils % (Manual) 1 (0-2) % Platelet Estimate Normal (NORMAL) Anisocytosis (manual) Slight Laboratory Results - last 24 hr 11/13/16 06:00 Neutrophils % (Manual) 73 Lymphocytes % (Manual) 8 L Reactive Lymphs % 1 H Monocytes % (Manual) 17 H Basophils % (Manual) 1 Platelet Estimate Normal Anisocytosis (manual) Slight Critical Care Progress Note - Nutrition Nutrition: Nutrition Category Date Time Status Heart Healthy Diet [DIET] Diets 11/09/16 Breakfast Active Assessment/Plan - Assessment and Plan (Free Text) Assessment: A/P Chest pain syndrome, respiratory insufficiency, COPD, sepsis, trchiobronchitis/ pneumonitis, hypokalemia - O2 supplement - Continue meds - Pulmonary toilets
[2016-11-14] MEDS: Lactobacillus Acidophilus 500 MU Cap PO SCH ×2 (09:51→17:04)
[2016-11-14] MEDS: Saccharomyces Boulardi 250 mg Cap PO SCH ×2 (09:52→17:05)
[2016-11-14] MEDS: Lidocaine 5% Patch TD SCH (09:52)
[2016-11-14] MEDS: Enoxaparin 40 mg Syringe SC SCH (09:53)
[2016-11-14] MEDS: methIMAzole 5 MG TAB PO SCH (09:54)
[2016-11-14] MEDS ORDERED: Morphine 4 MG/ML VIAL IVP ONE (11:30)
--- NOTE | 2016-11-14 12:28 | CP.PCM.PN ---
Subjective - Date & Time of Evaluation Date of Evaluation: 11/14/16 Time of Evaluation: 07:30 - Subjective Subjective: Patient seen and examined today in ICU. Feeling better. Hemodynamically stable BP 100/53 Tmax 100.5 last 12 hours.Able to expectorate thick yellowish sputum. Denies any SOB but complains of dull left sided chest pain radiating to her back . Denies any nausea or vomiting Saturating 93-98 % on 5 L O2 via [place] Objective - Vital Signs/Intake and Output Vital Signs (last 24 hours): Temp Pulse Resp BP Pulse Ox 99.0 F 97 H 22 100/53 L 98 11/14/16 07:58 11/14/16 07:58 11/14/16 07:58 11/14/16 07:58 11/14/16 07:58 Intake and Output: 11/14/16 11/14/16 06:59 18:59 Intake Total 910 Output Total 1350 Balance -440 - Medications Medications: Current Medications Acetaminophen (Tylenol 325mg Tab) 975 mg PO ONCE PRN PRN Reason: Fever >100.4 F Last Admin: 11/09/16 19:21 Dose: 975 mg Acetaminophen (Tylenol 325mg Tab) 650 mg PO Q6H PRN PRN Reason: Pain, Mild (1-3) Last Admin: 11/13/16 06:00 Dose: 650 mg Acetaminophen (Tylenol 650 Mg Supp) 650 mg [place] Q6H PRN PRN Reason: Fever >100.4 F Last Admin: 11/13/16 23:57 Dose: 650 mg Albuterol/Ipratropium (Duoneb 3 Mg/0.5 Mg (3 Ml) Ud) 3 ml INH RQ6 PRN PRN Reason: Shortness of Breath Albuterol/Ipratropium (Duoneb 3 Mg/0.5 Mg (3 Ml) Ud) 3 ml INH RQID ANDREAS Last Admin: 11/14/16 12:00 Dose: 3 ml Enoxaparin Sodium (Lovenox) 40 mg SC DAILY ANDREAS PRN Reason: Protocol Last Admin: 11/14/16 09:53 Dose: 40 mg Famotidine (Pepcid) 40 mg PO DAILY [facility] Last Admin: 11/14/16 09:53 Dose: 40 mg Fluticasone Propionate (Flonase) 2 spr VON DAILY [facility] Last Admin: 11/14/16 09:52 Dose: 2 spr Gabapentin (Neurontin) 600 mg PO Q8 [facility] Last Admin: 11/14/16 09:53 Dose: 600 mg Vancomycin HCl 1 gm/ Sodium (Chloride) 250 mls @ 166.667 mls/hr IVPB Q12 [facility] Last Admin: 11/14/16 09:56 Dose: 166.667 mls/hr Piperacillin Sod/Tazobactam (Sod 3.375 gm/ Sodium Chloride) 100 mls @ 100 mls/ hr IVPB Q6 [facility] Last Admin: 11/14/16 09:57 Dose: 100 mls/hr Ceftazidime 1 gm/ Sodium (Chloride) 100 mls @ 200 mls/hr IVPB Q12 [facility] Last Admin: 11/14/16 09:54 Dose: 200 mls/hr Lactobacillus Acidophilus (Bacid Acidophilus) 1 cap PO BID [facility] Last Admin: 11/14/16 09:51 Dose: 1 cap Lidocaine (Lidoderm) 1 ea TD DAILY [facility] Last Admin: 11/14/16 09:52 Dose: 1 ea Magnesium Hydroxide (Milk Of Magnesia) 30 ml PO DAILY PRN PRN Reason: Constipation Methimazole (Tapazole) 5 mg PO DAILY [facility] Last Admin: 11/14/16 09:54 Dose: 5 mg Saccharomyces Boulardii (Florastor) 250 mg PO BID [facility] Last Admin: 11/14/16 09:52 Dose: 250 mg Sodium Phosphate (Potassium/Sodium Phosphate) 500 mg PO DAILY [facility] Stop: 11/14/16 16:16 Last Admin: 11/14/16 09:54 Dose: 500 mg - Labs Labs: 11/13/16 06:00 11/13/16 06:00 PT 16.0 Seconds (9.8-13.1) H 11/09/16 19:16 INR 1.4 (0.9-1.2) H 11/09/16 19:16 APTT 32.7 Seconds (25.6-37.1) 11/09/16 19:16 - Constitutional Appears: Non-toxic, No Acute Distress, Chronically Ill - Head Exam Head Exam: ATRAUMATIC, NORMAL INSPECTION, NORMOCEPHALIC - Eye Exam Eye Exam: EOMI, Normal appearance, PERRL Pupil Exam: NORMAL ACCOMODATION - ENT Exam ENT Exam: Mucous Membranes Moist, Normal Exam - Neck Exam Neck Exam: Full ROM, Normal Inspection - Respiratory Exam Respiratory Exam: Decreased Breath Sounds (bibasilar). absent: Accessory Muscle Use, Rhonchi, Wheezes - Cardiovascular Exam Cardiovascular Exam: Tachycardia. absent: JVD - GI/Abdominal Exam GI & Abdominal Exam: Soft, Normal Bowel Sounds. absent: Distended, Guarding, Tenderness, Rebound - Rectal Exam Rectal Exam: Deferred - Extremities Exam Extremities Exam: Full ROM, Normal Capillary Refill, Normal Inspection Additional comments: RUE lymphedema - Neurological Exam Neurological Exam: Alert, Awake, Oriented x3 - Psychiatric Exam Psychiatric exam: Normal Affect - Skin Skin Exam: Dry, Pallor, Warm Assessment and Plan - Assessment and Plan (Free Text) Assessment: 66 y/o female with extensive PMH and long hospitalizations , Chronic Respiratory Failure with Trach placed 07/2016 and decanulation 11/04/16 ( 1 week ago ) , s/p gastric tube placement and removal , CHF (systolic+diastolic), COPD , bilateral metastatic breast CA to shoulder s/p chemo/rad 8 years ago (s/p humerus resection) with chronic lymphedema RUE, HTN, hyperthyroidism, tachycardia/SVT, R cephalic vein thrombosis, anxiety, came to ER with fever , chills malaise and myalgia . Patient found to be hypotensive, tachycardic, Febrile Tmax 102 WBC 22 K . Patient admitted with diagnosis of sepsis , started on IVF and IV antibiotics.She responded to IVF resuscitation Physical exam showed purulent secretions under the dressing over the recently closed trache to anterior neck. 1. Sepsis secondary to tracheobronchitis and RLL Pneumonia Blood and Urine c/s; neg wound cx: MSSA CXR Right lower lobe infiltrate responded to IVF ID and pulmonary consulted continue daily wound care to trache area With Tmax 10.5 last 24 hours WBC 11 k Will D/c Zosyn as per Id and continue vanco and Ceftazidime Plan for d/c to [facility] 2. Acute Tracheobronhitis ID consulted Continue IV antibiotics 3. Chronic respiratory insufficiency most likely secondary to COPD patient was heavy smoker and quit just recently Tolerating 5 L O2 via [place] [facility] Pulmonary consulted - Dr Mattson now covering for Dr Benz 4.CHF (congestive heart failure) stable Chronic Systolic and Diastolic Heart Failure BNP slightly elevated LAST ECHO 06/14/2016: Mild to moderate decreased LVEF 40-45%, RV moderately dilated, decreased RV function, Diastolic inflow pattern restrictive Lopressor 6.25mg q12 and Spironolactone 25 mg po daily on hold due to hypotension Monitor for fluid overload Lasix as necessary 5.Hx Bilateral Mastectomy, breast CA with chronic lymphedema RUE and peripheral neuropathy Continue Arimidex 1 mg po Daily Continue Gabapentin 600 mg po q8h 6.Hypertension Metoprolol on hold due to hypotension 7.Hyperthyroidism restarted Tapazole 5 mg po daily 8. Chest wall pain patient well known to have chronic chest wall pain trop negative Continue tele monitoring, repeat Trop Check Lipase and CMp since pain is radiating to the back Continue pain management 9.VTE ppx Lovenox
--- NOTE | 2016-11-14 14:41 | CP.PCM.PN ---
Subjective - Date & Time of Evaluation Date of Evaluation: 11/14/16 Time of Evaluation: 14:40 - Subjective Subjective: I D NOTE WBC IS DOWN WILL DISCONTINUE ZOSYN Objective - Vital Signs/Intake and Output Vital Signs (last 24 hours): Temp Pulse Resp BP Pulse Ox 99.0 F 97 H 22 100/53 L 98 11/14/16 07:58 11/14/16 07:58 11/14/16 07:58 11/14/16 07:58 11/14/16 07:58 Intake and Output: 11/14/16 11/14/16 06:59 18:59 Intake Total 910 Output Total 1350 Balance -440 - Medications Medications: Current Medications Acetaminophen (Tylenol 325mg Tab) 975 mg PO ONCE PRN PRN Reason: Fever >100.4 F Last Admin: 11/09/16 19:21 Dose: 975 mg Acetaminophen (Tylenol 325mg Tab) 650 mg PO Q6H PRN PRN Reason: Pain, Mild (1-3) Last Admin: 11/13/16 06:00 Dose: 650 mg Acetaminophen (Tylenol 650 Mg Supp) 650 mg ID Q6H PRN PRN Reason: Fever >100.4 F Last Admin: 11/13/16 23:57 Dose: 650 mg Albuterol/Ipratropium (Duoneb 3 Mg/0.5 Mg (3 Ml) Ud) 3 ml INH RQ6 PRN PRN Reason: Shortness of Breath Albuterol/Ipratropium (Duoneb 3 Mg/0.5 Mg (3 Ml) Ud) 3 ml INH RQID ANDREAS Last Admin: 11/14/16 12:00 Dose: 3 ml Enoxaparin Sodium (Lovenox) 40 mg SC DAILY ANDREAS PRN Reason: Protocol Last Admin: 11/14/16 09:53 Dose: 40 mg Famotidine (Pepcid) 40 mg PO DAILY [facility]RE[facility] Last Admin: 11/14/16 09:53 Dose: 40 mg Fluticasone Propionate (Flonase) 2 spr VON DAILY [facility] Last Admin: 11/14/16 09:52 Dose: 2 spr Gabapentin (Neurontin) 600 mg PO Q8 [facility] Last Admin: 11/14/16 09:53 Dose: 600 mg Vancomycin HCl 1 gm/ Sodium (Chloride) 250 mls @ 166.667 mls/hr IVPB Q12 [facility] Last Admin: 11/14/16 09:56 Dose: 166.667 mls/hr Piperacillin Sod/Tazobactam (Sod 3.375 gm/ Sodium Chloride) 100 mls @ 100 mls/ hr IVPB Q6 [facility] Last Admin: 11/14/16 09:57 Dose: 100 mls/hr Ceftazidime 1 gm/ Sodium (Chloride) 100 mls @ 200 mls/hr IVPB Q12 [facility] Last Admin: 11/14/16 09:54 Dose: 200 mls/hr Lactobacillus Acidophilus (Bacid Acidophilus) 1 cap PO BID [facility] Last Admin: 11/14/16 09:51 Dose: 1 cap Lidocaine (Lidoderm) 1 ea TD DAILY [facility] Last Admin: 11/14/16 09:52 Dose: 1 ea Magnesium Hydroxide (Milk Of Magnesia) 30 ml PO DAILY PRN PRN Reason: Constipation Methimazole (Tapazole) 5 mg PO DAILY [facility] Last Admin: 11/14/16 09:54 Dose: 5 mg Saccharomyces Boulardii (Florastor) 250 mg PO BID [facility] Last Admin: 11/14/16 09:52 Dose: 250 mg Sodium Phosphate (Potassium/Sodium Phosphate) 500 mg PO DAILY [facility] Stop: 11/14/16 16:16 Last Admin: 11/14/16 09:54 Dose: 500 mg - Labs Labs: 11/13/16 06:00 11/13/16 06:00 PT 16.0 Seconds (9.8-13.1) H 11/09/16 19:16 INR 1.4 (0.9-1.2) H 11/09/16 19:16 APTT 32.7 Seconds (25.6-37.1) 11/09/16 19:16
[2016-11-14 15:50] LABS: ALBUMIN 2.5 g/dL (3.5-5.0); ALT/SGPT 31 U/L (9-52); AST/SGOT 18 U/L (14-36); BLOOD UREA NITROGEN 9 mg/dl (7-17); CALCIUM 7.8 mg/dL (8.4-10.2); GFR AFRICAN-AMERICAN > 60; GFR NON-AFRICAN AMERICAN > 60; LIPASE 20 U/L (23-300)
--- NOTE | 2016-11-14 17:45 | RAD ---
PROCEDURE: CHEST RADIOGRAPH, 1 VIEW HISTORY: left sided chest pain COMPARISON: Comparison chest 11/11/2016 FINDINGS: Bilateral lower lobe infiltrates and bilateral effusions. LUNGS: Bilateral lower lobe atelectasis/infiltrate changes and small bilateral effusions. . Significant emphysematous changes upper lobe predominance right greater than left again noted. PLEURA: No pneumothorax or pleural fluid seen. CARDIOVASCULAR: Heart size is upper limits of normal. OSSEOUS STRUCTURES: The right humeral head and proximal humerus are absent likely at some combination of posttraumatic and/or postsurgical changes under altered from prior exam. Inferior margin of an ACDF plate inferior margin of the ACDF plate again noted over the lower cervical region. VISUALIZED UPPER ABDOMEN: Normal. OTHER FINDINGS: None. IMPRESSION: Bibasilar atelectasis and or infiltrates and small bilateral effusions. Significant emphysematous changes upper lobe predominance right greater than left again noted.
[2016-11-15 05:17] LABS: HEMOGLOBIN 11.5 g/dL (12.0-16.0); MEAN CELL VOLUME 91.1 fl (81.0-99.0); MEAN CORPUSCULAR HEMOGLOBIN 29.2 pg (27.0-31.0); MEAN CORPUSCULAR HGB CONC 32.1 g/dL (33.0-37.0); RBC 3.93 Mil/uL (3.80-5.20); RED CELL DISTRIBUTION WIDTH 15.5 % (11.5-14.5); WHITE BLOOD COUNT 8.5 K/uL (4.8-10.8)
[2016-11-15 05:33] LABS: BLOOD UREA NITROGEN 7 mg/dl (7-17); GFR AFRICAN-AMERICAN > 60; GFR NON-AFRICAN AMERICAN > 60
[2016-11-15 05:34] LABS: CALCIUM 8.1 mg/dL (8.4-10.2)
[2016-11-15] MEDS: Albuterol-Ipratrop 3 mg / 0.5 (3 ml) UD INH SCH ×3 (07:36→15:23)
[2016-11-15 08:33] VITALS: TEMP 98.4
[2016-11-15] MEDS: Lactobacillus Acidophilus 500 MU Cap PO SCH ×2 (08:40→16:27)
[2016-11-15] MEDS: Lidocaine 5% Patch TD SCH (08:41)
[2016-11-15] MEDS: Saccharomyces Boulardi 250 mg Cap PO SCH ×2 (08:41→16:29)
[2016-11-15] MEDS: Enoxaparin 40 mg Syringe SC SCH (08:42)
[2016-11-15] MEDS: methIMAzole 5 MG TAB PO SCH (08:43)
[2016-11-15] MEDS ORDERED: Potassium Chloride 20 mEq ER Tab PO ONE ×2 (10:27→15:00)
--- NOTE | 2016-11-15 10:40 | CP.PCM.DIS ---
Provider - Provider Date of Admission: 11/09/16 21:10 Attending physician: Joselo Noel MD Primary care physician: Dr Valverde Consults: Pulm: Dr Benz/Twila ID: Dr [email or web address] Time Spent in preparation of Discharge (in minutes): 35 Diagnosis - Discharge Diagnosis (1) Sepsis Status: Acute (2) Acute exacerbation of chronic obstructive pulmonary disease (COPD) Status: Acute Priority: High (3) Acute and chronic respiratory failure with hypercapnia Status: Chronic Priority: High (4) Acute tracheobronchitis Status: Acute (5) Pneumonia Status: Acute (6) Acute respiratory failure with hypercapnia Status: Acute (7) Acute respiratory failure with hypoxia Status: Acute (8) Hyperthyroidism Status: Chronic Priority: High (9) Chronic CHF (congestive heart failure) Status: Acute Hospital Course - Lab Results Lab Results: Micro Results 11/12/16 09:11 Sputum Gram Stain - Final 11/12/16 09:11 Sputum Sputum Culture - Final NORMAL SAPROPHYTIC NORMA 11/10/16 09:56 Neck Gram Stain - Final 11/10/16 09:56 Neck Wound Culture - Final Staphylococcus Aureus 11/10/16 14:44 Urine,Gutierrez Urine Culture - Final No Growth (<1,000 CFU/ML) 11/09/16 21:20 Urine Urine Culture - Final No Growth (<1,000 CFU/ML) Most Recent Lab Values WBC 8.5 K/uL (4.8-10.8) 11/15/16 04:30 RBC 3.93 Mil/uL (3.80-5.20) 11/15/16 04:30 Hgb 11.5 g/dL (12.0-16.0) L 11/15/16 04:30 Hct 35.7 % (34.0-47.0) 11/15/16 04:30 MCV 91.1 fl (81.0-99.0) 11/15/16 04:30 MCH 29.2 pg (27.0-31.0) 11/15/16 04:30 MCHC 32.1 g/dL (33.0-37.0) L 11/15/16 04:30 RDW 15.5 % (11.5-14.5) H 11/15/16 04:30 Plt Count 305 K/uL (130-400) 11/15/16 04:30 MPV 7.4 fl (7.2-11.7) 11/13/16 06:00 Neut % (Auto) 74.9 % (50.0-75.0) 11/13/16 06:00 Lymph % (Auto) 6.9 % (20.0-40.0) L 11/13/16 06:00 Power % (Auto) 15.7 % (0.0-10.0) H 11/13/16 06:00 Eos % (Auto) 2.1 % (0.0-4.0) 11/13/16 06:00 Baso % (Auto) 0.4 % (0.0-2.0) 11/13/16 06:00 Neut # 8.4 K/uL (1.8-7.0) H 11/13/16 06:00 Lymph # 0.8 K/uL (1.0-4.3) L 11/13/16 06:00 Power # 1.8 K/uL (0.0-0.8) H 11/13/16 06:00 Eos # 0.2 K/uL (0.0-0.7) 11/13/16 06:00 Baso # 0.0 K/uL (0.0-0.2) 11/13/16 06:00 Neutrophils % (Manual) 73 % (42-75) 11/13/16 06:00 Lymphocytes % (Manual) 8 % (20-50) L 11/13/16 06:00 Reactive Lymphs % 1 % (0-0) H 11/13/16 06:00 Monocytes % (Manual) 17 % (0-10) H 11/13/16 06:00 Basophils % (Manual) 1 % (0-2) 11/13/16 06:00 Platelet Estimate Normal (NORMAL) 11/13/16 06:00 Anisocytosis (manual) Slight 11/13/16 06:00 PT 16.0 Seconds (9.8-13.1) H 11/09/16 19:16 INR 1.4 (0.9-1.2) H 11/09/16 19:16 APTT 32.7 Seconds (25.6-37.1) 11/09/16 19:16 pCO2 41 mm/Hg (35-45) 11/09/16 19:25 pO2 57 mm/Hg (80-100) L 11/09/16 19:25 HCO3 27.9 mmol/L (21-28) 11/09/16 19:25 ABG pH 7.45 (7.35-7.45) 11/09/16 19:25 ABG Total CO2 29.8 mmol/L (22-28) H 11/09/16 19:25 ABG O2 Saturation 94.7 % (95-98) L 11/09/16 19:25 ABG Base Excess 4.1 mmol/L (-2.0-3.0) H 11/09/16 19:25 Tawanda Test Yes 11/09/16 19:25 ABG Potassium 3.8 mmol/L (3.6-5.2) 11/09/16 19:25 A-a O2 Difference 41.0 mm/Hg 11/09/16 19:25 Sodium 129.0 mmol/L (132-148) L 11/09/16 19:25 Chloride 101.0 mmol/L (98-107) 11/09/16 19:25 Glucose 88 mg/dL (65-105) 11/09/16 19:25 Lactate 1.2 mmol/L (0.7-2.1) 11/09/16 19:25 FiO2 21.0 % 11/09/16 19:25 Sodium 141 mmol/l (132-148) 11/15/16 04:30 Potassium 2.8 MMOL/L (3.6-5.0) L 11/15/16 04:30 Chloride 106 mmol/L (98-107) 11/15/16 04:30 Carbon Dioxide 28 mmol/L (22-30) 11/15/16 04:30 Anion Gap 10 (10-20) 11/15/16 04:30 BUN 7 mg/dl (7-17) 11/15/16 04:30 Creatinine 0.8 mg/dL (0.7-1.2) 11/15/16 04:30 Est GFR ( Amer) > 60 11/15/16 04:30 Est GFR (Non-Af Amer) > 60 11/15/16 04:30 Random Glucose 83 mg/dL (65-105) 11/15/16 04:30 Calcium 8.1 mg/dL (8.4-10.2) L 11/15/16 04:30 Phosphorus 2.4 mg/dl (2.5-4.5) L 11/11/16 12:30 Magnesium 1.9 MG/DL (1.6-2.3) 11/13/16 06:00 Total Bilirubin < 0.1 mg/dl (0.2-1.3) L 11/14/16 15:31 AST 18 U/L (14-36) 11/14/16 15:31 ALT 31 U/L (9-52) 11/14/16 15:31 Alkaline Phosphatase 92 U/L (38-126) 11/14/16 15:31 Troponin I < 0.0120 ng/mL (0.00-0.120) 11/14/16 15:31 NT-Pro-B Natriuret Pep 9790 pg/ml (0-900) H 11/09/16 19:16 Total Protein 5.0 G/DL (6.3-8.2) L 11/14/16 15:31 Albumin 2.5 g/dL (3.5-5.0) L 11/14/16 15:31 Globulin 2.5 gm/dL (2.2-3.9) 11/14/16 15:31 Albumin/Globulin Ratio 1.0 (1.0-2.1) 11/14/16 15:31 Lipase 20 U/L (23-300) L 11/14/16 15:31 TSH 3rd Generation < 0.02 mIU/ML (0.46-4.68) L 11/11/16 12:30 Arterial Blood Potassium 3.8 mmol/L (3.6-5.2) 11/09/16 19:25 Urine Color Yellow (YELLOW) 11/09/16 21:20 Urine Clarity Slighty-cloudy (Clear) 11/09/16 21:20 Urine pH 6.0 (5.0-8.0) 11/09/16 21:20 Ur Specific Morris 1.010 (1.003-1.030) 11/09/16 21:20 Urine Protein Negative mg/dL (NEGATIVE) 11/09/16 21:20 Urine Glucose (UA) Neg mg/dL (Normal) 11/09/16 21:20 Urine Ketones Negative mg/dL (NEGATIVE) 11/09/16 21:20 Urine Blood Negative (NEGATIVE) 11/09/16 21:20 Urine Nitrate Negative (NEGATIVE) 11/09/16 21:20 Urine Bilirubin Negative (NEGATIVE) 11/09/16 21:20 Urine Urobilinogen 0.2-1.0 mg/dL (0.2-1.0) 11/09/16 21:20 Ur Leukocyte Esterase Neg Ben/uL (Negative) 11/09/16 21:20 Urine RBC (Auto) 6 /hpf (0-3) H 11/09/16 21:20 Urine Microscopic WBC 2 /hpf (0-5) 11/09/16 21:20 Ur Squamous Epith Cells 1 /hpf (0-5) 11/09/16 21:20 - Hospital Course Hospital Course: 66 y/o female with extensive PMH and long hospitalizations , Chronic Respiratory Failure with Trach placed 07/2016 and decannulation 11/04/16 ( 1 week ago ), s/p gastric tube placement and removal , CHF (systolic+diastolic), COPD , bilateral metastatic breast CA to shoulder s/p chemo/rad 8 years ago (s/p humerus resection) with chronic lymphedema RUE, HTN, hyperthyroidism, tachycardia/SVT, R cephalic vein thrombosis, anxiety, came to ER with fever , chills malaise and myalgia . Patient found to be hypotensive, tachycardic, Febrile Tmax 102 WBC 22 K . Patient admitted with diagnosis of sepsis , started on IVF and IV antibiotics. She responded to IVF resuscitation Physical exam showed purulent secretions under the dressing over the recently closed trach to anterior neck. 1. Sepsis secondary to tracheobronchitis and RLL Pneumonia Blood and Urine c/s; neg wound cx: MSSA CXR Right lower lobe infiltrate responded to IVF ID and pulmonary consulted continue daily wound care to trache area Pt was on Zosyn however changed by ID to Vanco and Ceftazidime d/c to TAMARA - cont IV abx x 6 more days 2. Acute Tracheobronhitis ID consulted Continue IV antibiotics 3. Chronic respiratory insufficiency most likely secondary to COPD patient was heavy smoker and quit just recently Tolerating 3 L O2 via [place] [facility] Pulmonary consulted - Dr Mattson now covering for Dr Benz 4.CHF (congestive heart failure) stable Chronic Systolic and Diastolic Heart Failure BNP slightly elevated LAST ECHO 06/14/2016: Mild to moderate decreased LVEF 40-45%, RV moderately dilated, decreased RV function, Diastolic inflow pattern restrictive Lopressor 6.25mg q12 and Spironolactone 25 mg po daily on hold due to hypotension Lasix as necessary 5.Hx Bilateral Mastectomy, breast CA with chronic lymphedema RUE and peripheral neuropathy Continue Arimidex 1 mg po Daily Continue Gabapentin 600 mg po q8h 6.Hypertension Metoprolol on hold due to hypotension 7.Hyperthyroidism restarted Tapazole 5 mg po daily 8. Chest wall pain patient well known to have chronic chest wall pain trop negative Continue tele monitoring, repeat Trop Continue pain management 9. Hypokalemia replaced with KCL VTE ppx Lovenox Discharge Exam - Head Exam Head Exam: ATRAUMATIC, NORMAL INSPECTION, NORMOCEPHALIC - Eye Exam Eye Exam: EOMI, Normal appearance Pupil Exam: NORMAL ACCOMODATION - ENT Exam ENT Exam: Mucous Membranes Moist, Normal External Ear Exam - Neck Exam Neck exam: Full Rom Additional comments: small midline opening from previious Trach - Respiratory Exam Respiratory Exam: Decreased Breath Sounds, Rales, Rhonchi. absent: Wheezes, Respiratory Distress - Cardiovascular Exam Cardiovascular Exam: REGULAR RHYTHM, +S1, +S2 - GI/Abdominal Exam GI & Abdominal Exam: Normal Bowel Sounds, Soft. absent: Tenderness - Extremities Exam Extremities exam: full ROM, normal capillary refill, pedal pulses present - Back Exam Back exam: absent: CVA tenderness (L), CVA tenderness (R) - Neurological Exam Neurological exam: Alert, CN II-XII Intact, Oriented x3, Reflexes Normal - Psychiatric Exam Psychiatric exam: Normal Affect, Normal Mood - Skin Skin Exam: Dry, Normal Color, Warm Discharge Plan - Discharge Medications Prescriptions: Ceftazidime [Ceftazidime-Sodium Carbonate] 1,000 gm IV Q12 7 Days Vancomycin/0.9 % Sod Chloride [Vanco 1 Gram/250 ml-0.9% NaCl] 1 gm IV Q12 7 Days - Follow Up Plan Condition: IMPROVED Disposition: TRANSF TO SNF Additional Instructions: ff up with Dr Benz in 1-2 wks Vanco trough and BMP weekly ( Tuesday) Clinical Quality Measures - CQM - Heart Failure Ejection Fraction: 40 % or Greater Left Ventricular Function to be assessed after discharge: Yes LUCIA Inhibitor Prescribed: No Contraindication/Reason for not providing: low BP Beta-Vivian Prescribed: None Contraindication/Reason for not providing: low BP Angiotensin II Receptor Vivian Prescribed: No Contraindication/Reason for not providing: low BP AnticoagulationTherapy for Atrial Fibrillation/Atrialflutter: No Contraindication/Reason for not providing: not indicated Aldosterone Antagonist Prescribed: No Contraindication/Reason for not providing: low BP Hydralazine Nitrate Prescribed: No Contraindication/Reason for not providing: low BP Implantable Cardioverter Defibrillator Therapy: No Contraindication/Reason for not providing: not indicated Cardiac Resynchronization Therapy Prescribed: No Contraindication/Reason for not providing: not indicated Will be discharged to: [facility] Facility Follow Up Date (must be within 7 days from discharge): 11/16/16 Follow Up Time: 09:00 - Date & Time of Discharge Summary Date of Discharge Summary: 11/15/16 Time of Discharge Summary: 17:27
[2016-11-15] MEDS: Oxycodone/Acetaminophen 5/325 mg Tab PO PRN ×2 (11:09→17:16)
[2016-11-15 16:03] VITALS: BP 97/70; PULSE 92; RESP 18; O2SAT 99
[2016-11-15 17:24] LABS: BLOOD UREA NITROGEN 8 mg/dl (7-17); CALCIUM 8.3 mg/dL (8.4-10.2); GFR AFRICAN-AMERICAN > 60; GFR NON-AFRICAN AMERICAN 50
== END 2016-11-15 19:24 | DRG 871 ==
LOC: H.ER 18:28 → H.ERHOLD 21:10 → H.ICU/CCU 22:37
PROVIDERS: ADMIT Internal Medicine; ATTEND Internal Medicine
DX: A41.9 Sepsis, unspecified organism (principal); J96.22 Acute and chronic respiratory failure with hypercapnia; J96.01 Acute respiratory failure with hypoxia; I11.0 Hypertensive heart disease with heart failure; J18.9 Pneumonia, unspecified organism; I50.42 Chronic combined systolic (congestive) and diastolic (congestive) heart failure; J95.02 Infection of tracheostomy stoma; J44.0 Chronic obstructive pulmonary disease with (acute) lower respiratory infection; J44.1 Chronic obstructive pulmonary disease with (acute) exacerbation; I47.1 Supraventricular tachycardia; E05.90 Thyrotoxicosis, unspecified without thyrotoxic crisis or storm; E87.6 Hypokalemia; J20.9 Acute bronchitis, unspecified; G62.9 Polyneuropathy, unspecified; F41.9 Anxiety disorder, unspecified; M81.0 Age-related osteoporosis without current pathological fracture; Z85.3 Personal history of malignant neoplasm of breast; Z96.611 Presence of right artificial shoulder joint; R07.89 Other chest pain; B95.61 Methicillin susceptible Staphylococcus aureus infection as the cause of diseases classified elsewhere; I89.0 Lymphedema, not elsewhere classified; Z86.718 Personal history of other venous thrombosis and embolism; D63.8 Anemia in other chronic diseases classified elsewhere

== ENCOUNTER 2017-06-06 18:27 | Inpatient (IN) | payer MEDICARE, BC ==
[2017-06-06 18:27] VITALS: BMI 26.5
[2017-06-06] MEDS ORDERED: Albuterol-Ipratrop 3 mg / 0.5 (3 ml) UD IH STA (18:48)
[2017-06-06 19:00] LABS: BASO # 0.1 K/uL (0.0-0.2); BASO % 0.9 % (0.0-2.0); EOS # 0.1 K/uL (0.0-0.7); EOS % 1.3 % (0.0-4.0); HEMOGLOBIN 13.3 g/dL (12.0-16.0); LYMPH # 1.4 K/uL (1.0-4.3); LYMPH % 17.3 % (20.0-40.0); MEAN CELL VOLUME 86.2 fl (81.0-99.0); MEAN CORPUSCULAR HEMOGLOBIN 27.6 pg (27.0-31.0); MEAN CORPUSCULAR HGB CONC 32.1 g/dL (33.0-37.0); MEAN PLATELET VOLUME 7.2 fl (7.2-11.7); MONO # 1.2 K/uL (0.0-0.8); MONO % 14.3 % (0.0-10.0); NEUT # 5.4 K/uL (1.8-7.0); NEUT % 66.2 % (50.0-75.0); NRBC % 0.1 % (0.0-0.0); RBC 4.81 Mil/uL (3.80-5.20); RED CELL DISTRIBUTION WIDTH 17.8 % (11.5-14.5); WHITE BLOOD COUNT 8.1 K/uL (4.8-10.8)
[2017-06-06] MEDS ORDERED: Albuterol-Ipratrop 3 mg / 0.5 (3 ml) UD ONE ×2 (19:01→21:40)
--- NOTE | 2017-06-06 19:01 | ED PDOC ---
HPI: SOB/CHF/COPD Time Seen by Provider: 06/06/17 18:39 Chief Complaint (Nursing): Chest Pain Chief Complaint (Provider): SOB/Chest Tightness History Per: EMS History/Exam Limitations: no limitations Onset/Duration Of Symptoms: Hrs Additional Complaint(s): Michelle Hanson is a 67 year old female with a history of COPD and CHF that was brought to the ED via EMS after experiencing shortness of breath and chest tightness since this morning. Patient reports that she has been using home nebulizer with no improvement. EMS reports they administered sublingual nitroglycerin and aspirin with slight improvement. Past Medical History Reviewed: Historical Data, Nursing Documentation, Vital Signs Vital Signs: Last Vital Signs Temp 98.3 F 06/06/17 18:30 Pulse 100 H 06/06/17 18:30 Resp 22 06/06/17 18:30 BP 124/75 06/06/17 18:30 Pulse Ox 96 06/06/17 19:17 - Medical History PMH: Anemia, Anxiety, Arthritis, Asthma, Bronchitis, Cardia Arrhythmia, CHF, COPD, Fractures, Gall Bladder Disease, HTN, Hyperthyroidism (on methimazole), Hypothyroidism, Malignancy (breast CA), Osteoporosis, Pneumonia Denies: HIV, Chronic Kidney Disease - Family History Family History: States: Unknown Family Hx - Home Medications Home Medications: Ambulatory Orders Medication Instructions Recorded Acetaminophen [Tylenol 325mg tab] 650 mg PO Q6H PRN tab 11/15/16 methIMAzole [Tapazole] 5 mg PO DAILY tab 11/15/16 Anastrozole 1 12/12/16 Metoprolol Succinate 1 tab 12/12/16 Omeprazole 1 tab 12/12/16 Tiotropium [Spiriva] 18 mcg IH DAILY 12/12/16 Albuterol/Ipratropium [Duoneb 3 3 ml INH Q6 #50 12/21/16 mg/0.5 mg (3 ml) UD] Gabapentin [Neurontin] 600 mg PO TID #60 tab 12/21/16 guaiFENesin [Mucinex LA] 600 mg PO BID #30 tab 12/21/16 predniSONE [Prednisone] 30 mg PO DAILY #19 tab 12/21/16 - Allergies Allergies/Adverse Reactions: Allergies Allergy/AdvReac Type Severity Reaction Status Date / Time paper tape Allergy RASH Uncoded 11/09/16 18:30 Review of Systems Cardiovascular: Positive for: Other (chest tightness) Respiratory: Positive for: Shortness of Breath Physical Exam - Reviewed Nursing Documentation Reviewed: Yes Vital Signs Reviewed: Yes - Physical Exam Appears: Positive for: Non-toxic, No Acute Distress Head Exam: Positive for: ATRAUMATIC, NORMOCEPHALIC Skin: Positive for: Normal Color, Warm Eye Exam: Positive for: Normal appearance, EOMI, PERRL Cardiovascular/Chest: Positive for: Regular Rate, Rhythm. Negative for: Murmur Respiratory: Positive for: Decreased Breath Sounds (b/l), Respiratory Distress ( Mild). Negative for: Normal Breath Sounds, Rales, Wheezing Gastrointestinal/Abdominal: Positive for: Normal Exam, Soft. Negative for: Tenderness Back: Positive for: Normal Inspection Extremity: Positive for: Normal ROM, Swelling (right upper extremity has chronic swelling). Negative for: Tenderness (No lower extremity TTP), Pedal Edema Neurologic/Psych: Positive for: Alert, Oriented. Negative for: Motor/Sensory Deficits - Laboratory Results Result Diagrams: 06/06/17 18:56 06/06/17 18:56 - ECG O2 Sat by Pulse Oximetry: 96 (RA) Pulse Ox Interpretation: Normal Medical Decision Making Medical Decision Making: Impression: COPD Exacerbation Plan: * Chest X-Ray * EKG * BNP * CMP * CBC * Troponin I * Blood Culture * Duoneb 3 ml INIH * Solumedrol 125 mg IV * Peak Flow Pre/Post Tx * Reevaluation Scribe Attestation: Documented by Nara Ro, acting as a scribe for Michael Singleton MD. Provider Scribe Attestation: All medical record entries made by the Scribe were at my direction and personally dictated by me. I have reviewed the chart and agree that the record accurately reflects my personal performance of the history, physical exam, medical decision making, and the department course for this patient. I have also personally directed, reviewed, and agree with the discharge instructions and disposition. Disposition - Clinical Impression Clinical Impression: Acute exacerbation of chronic obstructive pulmonary disease (COPD), Chest pain - Patient ED Disposition Is Patient to be Admitted: Yes - Disposition Disposition Time: 20:35 Condition: FAIR Forms: [employer] (Estonian) - Pt Status Changed To: Hospital Disposition Of: Observation - POA Present On Arrival: None
[2017-06-06 19:22] LABS: ALB/GLOB RATIO 1.1 (1.0-2.1); ALBUMIN 3.3 g/dL (3.5-5.0); ALT/SGPT 37 U/L (9-52); AST/SGOT 27 U/L (14-36); BLOOD UREA NITROGEN 10 mg/dl (7-17); GFR AFRICAN-AMERICAN > 60; GFR NON-AFRICAN AMERICAN > 60
[2017-06-06 19:34] LABS: B-TYPE NATRIURETIC PEPTIDE 3850 pg/ml (0-900)
--- NOTE | 2017-06-06 20:41 | CP.PCM.HP ---
History of Present Illness - History of Present Illness History of Present Illness: CC: SOB, dry cough HPI: This is a 67 y/o female with COPD, sys/leigh CHF, and multiple other co- morbidities who comes in with about a day of worsening SOB. Patient states that symptoms started this AM with SOB and wheezing. She had a dry, non productive cough as well. Denies f/c/n/v/d. Denies CP. Denies LE swelling. Patient states that nothing has improved her symptoms and so she came in. Has had multiple admissions in the past year for similar issues. ROS: 14 systems reviewed, negative other than HPI MHx: Chronic Respiratory Failure , CHF (systolic+diastolic), COPD, bilateral metastatic breast CA to shoulder s/p chemo-XRT 8 years ago (s/p humerus resection) with chronic lymphedema RUE, HTN, hyperthyroidism, anemia of chronic disease, SVT, osteoporosis, R cephalic vein thrombosis, peripheral neuropathy, anxiety SHx: bilateral mastectomies R 1998/2008, total shoulder replacement (2003) + removal (2013), cervical and lumbar fusions 2007, cholecystectomy, tubal ligation, groin cyst removal; trach placed 07/2016, removed 11/04/16 Allergies: NKDA, but allergy to paper tape Medications: Per med rec Family Hx: Family history of cancer including ovarian, colon, breast, pancreatic and lung cancer Social Hx: Lives alone, smoked 40 p/y but quit a year ago, no current EtOH Surrogate Decision Maker: Information in chart Present on Admission - Present on Admission Any Indicators Present on Admission: No Past Patient History - Infectious Disease Hx of Infectious Diseases: None - Tetanus Immunizations Tetanus Immunization: Unknown - Past Medical History & Family History Past Medical History?: Yes - Past Social History Smoking Status: Former Smoker - CARDIAC Hx Cardia Arrhythmia: Yes Hx Congestive Heart Failure: Yes Hx Hypertension: Yes - PULMONARY Hx Asthma: Yes Hx Bronchitis: Yes Hx Chronic Obstructive Pulmonary Disease (COPD): Yes Hx Pneumonia: Yes - NEUROLOGICAL Hx Neurological Disorder: Yes Other/Comment: Peripheral neuropathy right lower extremity. 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 - RENAL Hx Chronic Kidney Disease: No - ENDOCRINE/METABOLIC Hx Hyperthyroidism: Yes (on methimazole) Hx Hypothyroidism: Yes - HEMATOLOGICAL/ONCOLOGICAL Hx Anemia: Yes Hx Human Immunodeficiency Virus (HIV): No - INTEGUMENTARY Hx Dermatological Problems: No - MUSCULOSKELETAL/RHEUMATOLOGICAL Hx Arthritis: Yes Hx Fractures: Yes Hx Osteoporosis: Yes - GASTROINTESTINAL Hx Gall Bladder Disease: Yes - GENITOURINARY/GYNECOLOGICAL Hx Genitourinary Disorders: No - PSYCHIATRIC Hx Anxiety: Yes - SURGICAL HISTORY Hx Surgeries: Yes Hx Mastectomy: Yes (right in 1998; left in 2008) Hx Orthopedic Surgery: Yes (2003 rigtht shoulder prosthesis, removal of hardware 2013) Hx Tubal Ligation: Yes Other/Comment: shoulder and humerous replacement with joint space infection and eventual removal of hardware in right shoulder and chronic lymphedema of RUE, groin cyst removal, cervical spinal fusion 2007, lumbar spinal fusion 2007. - ANESTHESIA Hx Anesthesia: Yes Hx Anesthesia Reactions: No Hx Malignant Hyperthermia: No Meds Allergies/Adverse Reactions: Allergies Allergy/AdvReac Type Severity Reaction Status Date / Time paper tape Allergy RASH Uncoded 11/09/16 18:30 Physical Exam - Constitutional Appears: Chronically Ill - Head Exam Head Exam: ATRAUMATIC, NORMOCEPHALIC - Eye Exam Eye Exam: EOMI, PERRL - ENT Exam ENT Exam: Mucous Membranes Moist - Neck Exam Neck exam: Positive for: Full Rom - Respiratory Exam Respiratory Exam: Rhonchi, Wheezes - Cardiovascular Exam Cardiovascular Exam: REGULAR RHYTHM, +S1, +S2 - GI/Abdominal Exam GI & Abdominal Exam: Normal Bowel Sounds, Soft - Extremities Exam Extremities exam: Positive for: full ROM Additional comments: RUE with chronic edema - Neurological Exam Neurological exam: Alert, CN II-XII Intact, Oriented x3 - Psychiatric Exam Psychiatric exam: Normal Affect, Normal Mood - Skin Skin Exam: Dry, Warm Results - Vital Signs Recent Vital Signs: Last Vital Signs Temp 98.3 F 06/06/17 18:30 Pulse 100 H 06/06/17 18:30 Resp 22 06/06/17 18:30 BP 124/75 06/06/17 18:30 Pulse Ox 96 06/06/17 20:35 - Labs Result Diagrams: 06/06/17 18:56 06/06/17 18:56 Labs: Laboratory Results - last 24 hr 06/06/17 06/06/17 18:56 18:56 WBC 8.1 RBC 4.81 Hgb 13.3 Hct 41.5 MCV 86.2 D MCH 27.6 MCHC 32.1 L RDW 17.8 H Plt Count 243 MPV 7.2 Neut % (Auto) 66.2 Lymph % (Auto) 17.3 L [place] % (Auto) 14.3 H Eos % (Auto) 1.3 Baso % (Auto) 0.9 Neut # 5.4 Lymph # 1.4 [place] # 1.2 H Eos # 0.1 Baso # 0.1 Sodium 139 Potassium 3.4 L Chloride 101 Carbon Dioxide 30 Anion Gap 11 BUN 10 Creatinine 0.6 L Est GFR ( Amer) > 60 Est GFR (Non-Af Amer) > 60 Random Glucose 81 Calcium 9.0 Total Bilirubin 0.8 AST 27 ALT 37 Alkaline Phosphatase 74 Troponin I 0.0130 NT-Pro-B Natriuret Pep 3850 H Total Protein 6.4 Albumin 3.3 L D Globulin 3.0 Albumin/Globulin Ratio 1.1 - EKG Data EKG Interpreted by: Myself EKG shows normal: Sinus rhythm Rate: Normal - EKG Data EKG comments: possible LVH, some non spec T wave changes - Imaging and Cardiology Chest x-ray Status: Image reviewed by me (no effusion, no infiltrate, no sign of vol o/l) Assessment & Plan (1) Acute exacerbation of chronic obstructive pulmonary disease (COPD) Assessment and Plan: 67 y/o female with multiple chronic conditions presents again with resp failure in setting of COPD. 1) COPD -Admit tele -Sched/PRN duonebs -Cont IV solumedrol 60 q8h -Will cover with azithromycin 500 mg IV for now 2) CHF -- stable, no acute intervention 3) Hyperthyroid -- continue home medications 4) HTN -- stable, continue home medications 5) DVT PPx -- SCDs for now Status: Acute Priority: High (2) Acute respiratory failure with hypoxia Status: Acute (3) Chronic CHF (congestive heart failure) Status: Acute (4) Hyperthyroidism Status: Chronic Priority: High (5) DVT prophylaxis Status: Acute
[2017-06-06] MEDS ORDERED: methylPREDNISolone 60 MG in Sodium Chloride 0.9% 50 ML IV SCH (20:45)
[2017-06-06] MEDS ORDERED: Albuterol-Ipratrop 3 mg / 0.5 (3 ml) UD INH PRN (20:45)
[2017-06-06] MEDS ORDERED: Azithromycin 500 MG in Sodium Chloride 0.9% 250 ML IVPB STA (20:52)
[2017-06-06] MEDS ORDERED: MethylPREDNISolone 40 mg Vial IV ONE (21:00)
[2017-06-07 05:43] LABS: HEMOGLOBIN 13.7 g/dL (12.0-16.0); MEAN CELL VOLUME 86.7 fl (81.0-99.0); MEAN CORPUSCULAR HEMOGLOBIN 27.6 pg (27.0-31.0); MEAN CORPUSCULAR HGB CONC 31.9 g/dL (33.0-37.0); RBC 4.95 Mil/uL (3.80-5.20); RED CELL DISTRIBUTION WIDTH 17.5 % (11.5-14.5); WHITE BLOOD COUNT 8.2 K/uL (4.8-10.8)
[2017-06-07 06:03] LABS: BLOOD UREA NITROGEN 15 mg/dl (7-17); CALCIUM 8.8 mg/dL (8.4-10.2); GFR AFRICAN-AMERICAN > 60; GFR NON-AFRICAN AMERICAN > 60
[2017-06-07] MEDS ORDERED: Oxycodone/Acetaminophen 5/325 mg Tab PO SCH (07:15)
[2017-06-07] MEDS: Albuterol-Ipratrop 3 mg / 0.5 (3 ml) UD INH SCH ×4 (07:30→19:02)
--- NOTE | 2017-06-07 08:34 | CARD ---
APPROVED REPORT EKG Measurement Heart [id number] <Conclusion> Normal sinus rhythm Voltage criteria for left ventricular hypertrophy Nonspecific T wave abnormality Abnormal ECG
[2017-06-07] MEDS ORDERED: Fluticasone-Salmeterol 250-50mcg Diskus IH SCH (09:00)
[2017-06-07] MEDS ORDERED: methIMAzole 5 MG TAB PO SCH (09:00)
[2017-06-07] MEDS: Azithromycin 500 MG in Sodium Chloride 0.9% 250 ML IVPB SCH (09:22)
[2017-06-07] MEDS: guaiFENesin 600 mg ER Tab PO SCH ×2 (09:25→18:15)
[2017-06-07] MEDS: Pantoprazole 40 mg EC Tab PO SCH (09:25)
--- NOTE | 2017-06-07 11:01 | RAD ---
HISTORY: Cough. COMPARISON: 11/24/2016. FINDINGS: LUNGS: Resolution of lower lobe infiltrates. PLEURA: Pleural effusions identified previously low longer apparent. CARDIOVASCULAR: Normal. OSSEOUS STRUCTURES: No significant interval change compared to the prior examination(s). This includes findings in the left clavicle and right humerus/right shoulder. VISUALIZED UPPER ABDOMEN: Normal. OTHER FINDINGS: None. IMPRESSION: No active disease. Resolution of bilateral lower lobe infiltrates and pleural effusions.
--- NOTE | 2017-06-07 11:11 | CP.PCM.CON ---
Past Patient History - Infectious Disease Hx of Infectious Diseases: None - Tetanus Immunizations Tetanus Immunization: Unknown - Past Medical History & Family History Past Medical History?: Yes - Past Social History Smoking Status: Former Smoker - CARDIAC Hx Cardia Arrhythmia: Yes Hx Congestive Heart Failure: Yes Hx Hypertension: Yes - PULMONARY Hx Asthma: Yes Hx Bronchitis: Yes Hx Chronic Obstructive Pulmonary Disease (COPD): Yes Hx Pneumonia: Yes - NEUROLOGICAL Hx Neurological Disorder: Yes Other/Comment: Peripheral neuropathy right lower extremity. 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 - RENAL Hx Chronic Kidney Disease: No - ENDOCRINE/METABOLIC Hx Hyperthyroidism: Yes (on methimazole) Hx Hypothyroidism: Yes - HEMATOLOGICAL/ONCOLOGICAL Hx Anemia: Yes Hx Human Immunodeficiency Virus (HIV): No - INTEGUMENTARY Hx Dermatological Problems: No - MUSCULOSKELETAL/RHEUMATOLOGICAL Hx Arthritis: Yes Hx Falls: Yes Hx Fractures: Yes Hx Osteoporosis: Yes - GASTROINTESTINAL Hx Gall Bladder Disease: Yes - GENITOURINARY/GYNECOLOGICAL Hx Genitourinary Disorders: No - PSYCHIATRIC Hx Anxiety: Yes Hx Substance Use: No - SURGICAL HISTORY Hx Surgeries: Yes Hx Mastectomy: Yes (right in 1998; left in 2008) Hx Orthopedic Surgery: Yes (2003 rigtht shoulder prosthesis, removal of hardware 2013) Hx Tubal Ligation: Yes Other/Comment: shoulder and humerous replacement with joint space infection and eventual removal of hardware in right shoulder and chronic lymphedema of RUE, groin cyst removal, cervical spinal fusion 2007, lumbar spinal fusion 2007. - ANESTHESIA Hx Anesthesia: Yes Hx Anesthesia Reactions: No Hx Malignant Hyperthermia: No Meds Allergies/Adverse Reactions: Allergies Allergy/AdvReac Type Severity Reaction Status Date / Time paper tape Allergy RASH Uncoded 11/09/16 18:30 - Medications Medications: Current Medications Albuterol/Ipratropium (Duoneb 3 Mg/0.5 Mg (3 Ml) Ud) 3 ml INH RQID [facility] Last Admin: 06/07/17 07:30 Dose: 3 ml Albuterol/Ipratropium (Duoneb 3 Mg/0.5 Mg (3 Ml) Ud) 3 ml INH RQ6 PRN PRN Reason: Shortness of Breath Last Admin: 06/06/17 21:42 Dose: 3 ml Aspirin (Ecotrin) 81 mg PO DAILY [facility] Last Admin: 06/07/17 09:25 Dose: 81 mg Gabapentin (Neurontin) 600 mg PO TID [facility] Last Admin: 06/07/17 09:25 Dose: 600 mg Guaifenesin (Mucinex La) 600 mg PO BID [facility] Last Admin: 06/07/17 09:25 Dose: 600 mg Home Med (Anastrozole) 1 mg PO DAILY [facility] Home Med (Oxycodone Hcl/Acetaminophen [Percocet 10-325 Mg Tablet]) 1 tab PO Q6H [facility] Azithromycin 500 mg/ Sodium (Chloride) 250 mls @ 250 mls/hr IVPB DAILY [facility] PRN Reason: Protocol Last Admin: 06/07/17 09:22 Dose: 250 mls/hr Methylprednisolone 30 mg/ (Sodium Chloride) 50 mls @ 100 mls/hr IV Q8 [facility] Methimazole (Tapazole) 10 mg PO DAILY [facility] Last Admin: 06/07/17 09:25 Dose: 10 mg Ondansetron HCl (Zofran Inj) 4 mg IVP Q6 PRN PRN Reason: Nausea/Vomiting Last Admin: 06/07/17 09:17 Dose: 4 mg Pantoprazole Sodium (Protonix Ec Tab) 40 mg PO DAILY [facility] Last Admin: 06/07/17 09:25 Dose: 40 mg Fluticasone/Salmeterol (Advair Diskus 250/50) 2 puff IH Q12 [facility] Last Admin: 06/07/17 09:23 Dose: 2 puff Results - Vital Signs Recent Vital Signs: Last Vital Signs Temp 98.2 F 06/07/17 07:56 Pulse 97 H 06/07/17 07:56 Resp 18 06/07/17 07:56 BP 121/69 06/07/17 07:56 Pulse Ox 90 L 06/07/17 07:56 - Labs Result Diagrams: 06/07/17 04:25 06/07/17 04:25 Labs: Laboratory Results - last 24 hr 06/06/17 06/06/17 06/07/17 18:56 18:56 04:25 WBC 8.1 8.2 RBC 4.81 4.95 Hgb 13.3 13.7 Hct 41.5 42.9 MCV 86.2 D 86.7 MCH 27.6 27.6 MCHC 32.1 L 31.9 L RDW 17.8 H 17.5 H Plt Count 243 254 MPV 7.2 Neut % (Auto) 66.2 Lymph % (Auto) 17.3 L Will % (Auto) 14.3 H Eos % (Auto) 1.3 Baso % (Auto) 0.9 Neut # 5.4 Lymph # 1.4 Will # 1.2 H Eos # 0.1 Baso # 0.1 Sodium 139 Potassium 3.4 L Chloride 101 Carbon Dioxide 30 Anion Gap 11 BUN 10 Creatinine 0.6 L Est GFR ( Amer) > 60 Est GFR (Non-Af Amer) > 60 Random Glucose 81 Calcium 9.0 Total Bilirubin 0.8 AST 27 ALT 37 Alkaline Phosphatase 74 Troponin I 0.0130 NT-Pro-B Natriuret Pep 3850 H Total Protein 6.4 Albumin 3.3 L D Globulin 3.0 Albumin/Globulin Ratio 1.1 06/07/17 04:25 WBC RBC Hgb Hct MCV MCH MCHC RDW Plt Count MPV Neut % (Auto) Lymph % (Auto) Will % (Auto) Eos % (Auto) Baso % (Auto) Neut # Lymph # Will # Eos # Baso # Sodium 141 Potassium 4.3 Chloride 102 Carbon Dioxide 29 Anion Gap 14 BUN 15 Creatinine 0.6 L Est GFR ( Amer) > 60 Est GFR (Non-Af Amer) > 60 Random Glucose 147 H Calcium 8.8 Total Bilirubin AST ALT Alkaline Phosphatase Troponin I NT-Pro-B Natriuret Pep Total Protein Albumin Globulin Albumin/Globulin Ratio Assessment & Plan - Date & Time Date: 06/07/17 Time: 11:11
[2017-06-07] MEDS ORDERED: Oxycodone/Acetaminophen 5/325 mg Tab PO PRN (14:00)
[2017-06-07] MEDS ORDERED: methylPREDNISolone 30 MG in Sodium Chloride 0.9% 50 ML IV SCH (17:00)
[2017-06-07] MEDS: MethylPREDNISolone 40 mg Vial IVP SCH (18:20)
--- NOTE | 2017-06-07 19:26 | CP.PCM.PN ---
Subjective - Date & Time of Evaluation Date of Evaluation: 06/07/17 Time of Evaluation: 15:00 - Subjective Subjective: Patient was seen and examined bedside. Chronically ill female lying in bed in NAD.States that is Feeling a little better . Saturating 92-90 % on 2 L O2 via NC Complains of increased erythema to her RUE that has lymphedema BP 102/62 HR 110 BNP 3850 WBC 8 K Hgb 13.7 Objective - Vital Signs/Intake and Output Vital Signs (last 24 hours): Temp Pulse Resp BP Pulse Ox 98.7 F 110 H 20 102/62 93 L 06/07/17 16:01 06/07/17 16:01 06/07/17 16:01 06/07/17 16:01 06/07/17 16:01 - Medications Medications: Current Medications Albuterol/Ipratropium (Duoneb 3 Mg/0.5 Mg (3 Ml) Ud) 3 ml INH RQID [facility] Last Admin: 06/07/17 19:02 Dose: 3 ml Albuterol/Ipratropium (Duoneb 3 Mg/0.5 Mg (3 Ml) Ud) 3 ml INH RQ6 PRN PRN Reason: Shortness of Breath Last Admin: 06/06/17 21:42 Dose: 3 ml Anastrozole (Arimidex 1 Mg Tab) 1 mg PO DAILY [facility] Last Admin: 06/07/17 18:14 Dose: 1 mg Aspirin (Ecotrin) 81 mg PO DAILY [facility] Last Admin: 06/07/17 09:25 Dose: 81 mg Gabapentin (Neurontin) 600 mg PO TID [facility] Last Admin: 06/07/17 18:15 Dose: 600 mg Guaifenesin (Mucinex La) 600 mg PO BID [facility] Last Admin: 06/07/17 18:15 Dose: 600 mg Azithromycin 500 mg/ Sodium (Chloride) 250 mls @ 250 mls/hr IVPB DAILY [facility] PRN Reason: Protocol Last Admin: 06/07/17 09:22 Dose: 250 mls/hr Methimazole (Tapazole) 10 mg PO DAILY [facility] Last Admin: 06/07/17 09:25 Dose: 10 mg Methylprednisolone (Solu-Medrol) 30 mg IVP Q8 [facility] Last Admin: 06/07/17 18:20 Dose: 30 mg Ondansetron HCl (Zofran Inj) 4 mg IVP Q6 PRN PRN Reason: Nausea/Vomiting Last Admin: 06/07/17 09:17 Dose: 4 mg Oxycodone/Acetaminophen (Percocet 5/325 Mg Tab) 2 tab PO Q6H PRN PRN Reason: Pain, moderate (4-7) Last Admin: 06/07/17 18:21 Dose: 2 tab Pantoprazole Sodium (Protonix Ec Tab) 40 mg PO DAILY [facility] Last Admin: 06/07/17 09:25 Dose: 40 mg Fluticasone/Salmeterol (Advair Diskus 250/50) 2 puff IH Q12 [facility] Last Admin: 06/07/17 09:23 Dose: 2 puff - Labs Labs: 06/07/17 04:25 06/07/17 04:25 - Constitutional Appears: Non-toxic, No Acute Distress, Chronically Ill - Head Exam Head Exam: ATRAUMATIC, NORMAL INSPECTION, NORMOCEPHALIC - Eye Exam Eye Exam: EOMI, Normal appearance, PERRL Pupil Exam: NORMAL ACCOMODATION - ENT Exam ENT Exam: Mucous Membranes Moist, Normal Exam - Neck Exam Neck Exam: Full ROM, Normal Inspection - Respiratory Exam Respiratory Exam: Rhonchi (scattered rhonchi ). absent: Wheezes - Cardiovascular Exam Cardiovascular Exam: REGULAR RHYTHM, RRR, +S1, +S2. absent: JVD - GI/Abdominal Exam GI & Abdominal Exam: Soft, Normal Bowel Sounds. absent: Distended, Guarding, Rebound - Rectal Exam Rectal Exam: Deferred - Extremities Exam Extremities Exam: absent: Calf Tenderness Additional comments: right upper extremity lymphedema and some erythema - Back Exam Back Exam: NORMAL INSPECTION - Neurological Exam Neurological Exam: Alert, Awake, CN II-XII Intact, Oriented x3 - Psychiatric Exam Psychiatric exam: Normal Affect - Skin Skin Exam: Dry, Intact, Warm Assessment and Plan - Assessment and Plan (Free Text) Assessment: 67 y/o female with extensive PMH and long hospitalizations , Chronic Respiratory Failure with Trach placed 07/2016 and decannulation 11/04/16 ( 1 week ago ), s/p gastric tube placement and removal , CHF (systolic+diastolic), COPD , bilateral metastatic breast CA to right shoulder s/p chemo/rad 8 years ago (s/ p humerus resection) with chronic lymphedema RUE, HTN, hyperthyroidism, tachycardia/SVT, R cephalic vein thrombosis, anxiety, came to ER 1 day history of worsening SOB , wheezing and non productive cough. She states that nothing improved her syymptoms 1. Acute COPD exacerbation CXR showed no active disease Continue Duonebs, Solumedrol 40 mg IV Q8 Zirthromax IV and o2 vi anC pulmonary consulted 2.CHF (congestive heart failure) stable Chronic Systolic and Diastolic Heart Failure BNP slightly elevated LAST ECHO 06/14/2016: Mild to moderate decreased LVEF 40-45%, RV moderately dilated, decreased RV function, Diastolic inflow pattern restrictive lasix PRN 3.Hx Bilateral Mastectomy, breast CA with chronic lymphedema RUE and peripheral neuropathy Continue Arimidex 1 mg po Daily Continue Gabapentin 600 mg po q8h mild erythema to RUE noted Start Keflex PO 4.Hyperthyroidism on Tapazole 5. Chronic pain Lidoderm patch to lower back and Percoset PRN 6.VTE ppx Lovenox SCD
[2017-06-08] MEDS: MethylPREDNISolone 40 mg Vial IVP SCH ×3 (00:12→16:10)
[2017-06-08 00:39] VITALS: O2SAT 95
[2017-06-08 07:00] LABS: HEMOGLOBIN 11.9 g/dL (12.0-16.0); MEAN CELL VOLUME 85.8 fl (81.0-99.0); MEAN CORPUSCULAR HEMOGLOBIN 27.5 pg (27.0-31.0); MEAN CORPUSCULAR HGB CONC 32.1 g/dL (33.0-37.0); RBC 4.35 Mil/uL (3.80-5.20); RED CELL DISTRIBUTION WIDTH 17.2 % (11.5-14.5); WHITE BLOOD COUNT 9.9 K/uL (4.8-10.8)
[2017-06-08 07:33] LABS: BLOOD UREA NITROGEN 24 mg/dl (7-17); GFR AFRICAN-AMERICAN > 60; GFR NON-AFRICAN AMERICAN > 60
[2017-06-08] MEDS: Albuterol-Ipratrop 3 mg / 0.5 (3 ml) UD INH SCH ×3 (08:47→15:28)
[2017-06-08] MEDS ORDERED: Lidocaine 5% Patch TD SCH (09:00)
[2017-06-08] MEDS ORDERED: Enoxaparin 40 mg Syringe SC SCH (09:00)
[2017-06-08] MEDS: guaiFENesin 600 mg ER Tab PO SCH ×2 (09:15→16:10)
[2017-06-08] MEDS: Pantoprazole 40 mg EC Tab PO SCH (09:16)
[2017-06-08] MEDS: Azithromycin 500 MG in Sodium Chloride 0.9% 250 ML IVPB SCH (09:20)
--- NOTE | 2017-06-08 12:15 | CP.PCM.PN ---
Subjective - Date & Time of Evaluation Date of Evaluation: 06/08/17 Time of Evaluation: 12:06 - Subjective Subjective: Case was discussed with the hospitalist. She has been relatively stable, although she remains [place]. Her vital signs have been stable and she has been afebrile. Her glucose has been elevaqted, but likely to steroid therapy. Her cough is congested, but non-productive. Rhonchi are heard bilaterally which are partially cleared by deep cough. Expiratory phase is prolonged without distinct wheezing. Dry rales are heard in the lower lung corral bilaterally. An area of bronchial breath sounds is still noted in the RUL medially. The RUE is edematous and mildly erythematous. Agree she can probably be discharged to home today to continue her current regimrn. Prednisone can be taken at 10MG PO BID. She apparently needs to be placed back on her ciprofloxacin for the chronic cellulitis which develops because of the lymphedema in the RUE. She has been instructed to call the office in 48 hrs for followup appointment. Ciprofloxacin refill has been ordered electronically from her pharmacy. Objective - Vital Signs/Intake and Output Vital Signs (last 24 hours): Temp Pulse Resp BP Pulse Ox 98.1 F 96 H 20 103/51 L 95 06/08/17 11:50 06/08/17 11:50 06/08/17 11:50 06/08/17 11:50 06/08/17 11:50 - Medications Medications: Current Medications Albuterol/Ipratropium (Duoneb 3 Mg/0.5 Mg (3 Ml) Ud) 3 ml INH RQID [facility] Last Admin: 06/08/17 11:30 Dose: 3 ml Albuterol/Ipratropium (Duoneb 3 Mg/0.5 Mg (3 Ml) Ud) 3 ml INH RQ6 PRN PRN Reason: Shortness of Breath Last Admin: 06/06/17 21:42 Dose: 3 ml Anastrozole (Arimidex 1 Mg Tab) 1 mg PO DAILY [facility] Last Admin: 06/08/17 09:13 Dose: 1 mg Aspirin (Ecotrin) 81 mg PO DAILY [facility] Last Admin: 06/08/17 09:14 Dose: 81 mg Cephalexin Monohydrate (Keflex) 500 mg PO Q6 [facility] PRN Reason: Protocol Last Admin: 06/08/17 09:14 Dose: 500 mg Enoxaparin Sodium (Lovenox) 40 mg SC DAILY [facility] PRN Reason: Protocol Last Admin: 06/08/17 09:18 Dose: 40 mg Gabapentin (Neurontin) 600 mg PO TID [facility] Last Admin: 06/08/17 09:15 Dose: 600 mg Guaifenesin (Mucinex La) 600 mg PO BID [facility] Last Admin: 06/08/17 09:15 Dose: 600 mg Azithromycin 500 mg/ Sodium (Chloride) 250 mls @ 250 mls/hr IVPB DAILY [facility] PRN Reason: Protocol Last Admin: 06/08/17 09:20 Dose: 250 mls/hr Lidocaine (Lidoderm) 1 ea TD DAILY [facility] Last Admin: 06/08/17 09:15 Dose: 1 ea Methimazole (Tapazole) 10 mg PO DAILY [facility] Last Admin: 06/08/17 09:16 Dose: 10 mg Methylprednisolone (Solu-Medrol) 30 mg IVP Q8 [facility] Last Admin: 06/08/17 09:16 Dose: 30 mg Ondansetron HCl (Zofran Inj) 4 mg IVP Q6 PRN PRN Reason: Nausea/Vomiting Last Admin: 06/07/17 09:17 Dose: 4 mg Oxycodone/Acetaminophen (Percocet 5/325 Mg Tab) 2 tab PO Q6H PRN PRN Reason: Pain, moderate (4-7) Last Admin: 06/07/17 18:21 Dose: 2 tab Pantoprazole Sodium (Protonix Ec Tab) 40 mg PO DAILY [facility] Last Admin: 06/08/17 09:16 Dose: 40 mg Fluticasone/Salmeterol (Advair Diskus 250/50) 2 puff IH Q12 [facility] Last Admin: 06/07/17 09:23 Dose: 2 puff - Labs Labs: 06/08/17 04:45 06/08/17 04:45
--- NOTE | 2017-06-08 12:38 | CP.PCM.DIS ---
Provider - Provider Date of Admission: 06/07/17 23:56 Attending physician: Joselo Noel MD Primary care physician: Dr. Benz Consults: pulmonary consult Time Spent in preparation of Discharge (in minutes): 20 Hospital Course - Lab Results Lab Results: Micro Results 06/06/17 18:50 Blood Blood Culture - Preliminary NO GROWTH AFTER 24 HOURS Most Recent Lab Values WBC 9.9 K/uL (4.8-10.8) 06/08/17 04:45 RBC 4.35 Mil/uL (3.80-5.20) 06/08/17 04:45 Hgb 11.9 g/dL (12.0-16.0) L 06/08/17 04:45 Hct 37.3 % (34.0-47.0) 06/08/17 04:45 MCV 85.8 fl (81.0-99.0) 06/08/17 04:45 MCH 27.5 pg (27.0-31.0) 06/08/17 04:45 MCHC 32.1 g/dL (33.0-37.0) L 06/08/17 04:45 RDW 17.2 % (11.5-14.5) H 06/08/17 04:45 Plt Count 255 K/uL (130-400) 06/08/17 04:45 MPV 7.2 fl (7.2-11.7) 06/06/17 18:56 Neut % (Auto) 66.2 % (50.0-75.0) 06/06/17 18:56 Lymph % (Auto) 17.3 % (20.0-40.0) L 06/06/17 18:56 [place] % (Auto) 14.3 % (0.0-10.0) H 06/06/17 18:56 Eos % (Auto) 1.3 % (0.0-4.0) 06/06/17 18:56 Baso % (Auto) 0.9 % (0.0-2.0) 06/06/17 18:56 Neut # 5.4 K/uL (1.8-7.0) 06/06/17 18:56 Lymph # 1.4 K/uL (1.0-4.3) 06/06/17 18:56 [place] # 1.2 K/uL (0.0-0.8) H 06/06/17 18:56 Eos # 0.1 K/uL (0.0-0.7) 06/06/17 18:56 Baso # 0.1 K/uL (0.0-0.2) 06/06/17 18:56 Sodium 139 mmol/l (132-148) 06/08/17 04:45 Potassium 4.3 MMOL/L (3.6-5.0) 06/08/17 04:45 Chloride 101 mmol/L (98-107) 06/08/17 04:45 Carbon Dioxide 31 mmol/L (22-30) H 06/08/17 04:45 Anion Gap 11 (10-20) 06/08/17 04:45 BUN 24 mg/dl (7-17) H 06/08/17 04:45 Creatinine 0.7 mg/dl (0.7-1.2) 06/08/17 04:45 Est GFR ( Amer) > 60 06/08/17 04:45 Est GFR (Non-Af Amer) > 60 06/08/17 04:45 Random Glucose 151 mg/dL (65-105) H 06/08/17 04:45 Calcium 9.0 mg/dL (8.4-10.2) 06/08/17 04:45 Total Bilirubin 0.8 mg/dl (0.2-1.3) 06/06/17 18:56 AST 27 U/L (14-36) 06/06/17 18:56 ALT 37 U/L (9-52) 06/06/17 18:56 Alkaline Phosphatase 74 U/L (38-126) 06/06/17 18:56 Troponin I 0.0130 ng/mL (0.00-0.120) 06/06/17 18:56 NT-Pro-B Natriuret Pep 3850 pg/ml (0-900) H 06/06/17 18:56 Total Protein 6.4 G/DL (6.3-8.2) 06/06/17 18:56 Albumin 3.3 g/dL (3.5-5.0) L D 06/06/17 18:56 Globulin 3.0 gm/dL (2.2-3.9) 06/06/17 18:56 Albumin/Globulin Ratio 1.1 (1.0-2.1) 06/06/17 18:56 - Hospital Course Hospital Course: 67 y/o female with extensive PMH and long hospitalizations , Chronic Respiratory Failure with Trach placed 07/2016 and decannulation 11/04/16 , s/p gastric tube placement and removal , CHF (systolic+diastolic), COPD, bilateral breast CA metastatic to right shoulder s/p chemo/rad 8 years ago (s/p humerus resection) with chronic lymphedema RUE, HTN, hyperthyroidism, tachycardia/SVT, R cephalic vein thrombosis, anxiety, came to ER with 1 day history of worsening SOB , wheezing and non productive cough. She states that nothing improved her symptoms. Patient diagnosed and admitted with acute on Chronic COPD exacerbation , started on Solumedrol IV, Duonebs, Zithromax IV and pulmonary was consulted . It was noted that her RUE with chronic lymphedema was erythematous . She has been having chronic cellulitis and has been on Cipro Po for many years , suppressive therapy, which was stopped recently. She was started on Keflex pO for RUE cellulitis [facility]. Clinically patient improved , with baseline SOB on exertion and scattered rhonchi, with no productive cough. discussed with pulmonary Dr. Benz. Patient may be discharged eveline beryl her usual medications. Increased Prednisone to 10 mg po BID . She is advised to continue Ciprofloxacin 500 mg po QD for RUE chronic cellulitis. Will discharge patient home Advised to follow up with Dr. Benz in his office in 48 hours. 1. Acute on chronic COPD exacerbation CXR showed no active disease Continue Duonebs, Solumedrol 40 mg IV Q8 Zirthromax IV and o2 vi anC pulmonary consulted 2.CHF (congestive heart failure) stable Chronic Systolic and Diastolic Heart Failure BNP slightly elevated LAST ECHO 06/14/2016: Mild to moderate decreased LVEF 40-45%, RV moderately dilated, decreased RV function, Diastolic inflow pattern restrictive lasix PRN 3.Hx Bilateral Mastectomy, breast CA with chronic lymphedema RUE and peripheral neuropathy Continue Arimidex 1 mg po Daily Continue Gabapentin 600 mg po q8h mild erythema to RUE noted Start Keflex PO 4.Hyperthyroidism on Tapazole 5. Chronic pain Lidoderm patch to lower back and Percoset PRN 6. Chronic RUE cellulitis arm appears warm and erythematous Given Keflex Po Will start Cipro on discharge 6.VTE ppx Lovenox SCD Discharge Exam - Head Exam Head Exam: ATRAUMATIC, NORMAL INSPECTION, NORMOCEPHALIC Additional comments: chronically ill - Eye Exam Eye Exam: PERRL Pupil Exam: NORMAL ACCOMODATION - ENT Exam ENT Exam: Mucous Membranes Moist, Normal Exam - Neck Exam Neck exam: Full Rom, Normal Inspection - Respiratory Exam Respiratory Exam: Prolonged Expiratory Phase, Rhonchi (scattered rhonchi and wheezing ). absent: Accessory Muscle Use, Respiratory Distress - Cardiovascular Exam Cardiovascular Exam: REGULAR RHYTHM, RRR, +S1, +S2. absent: JVD - GI/Abdominal Exam GI & Abdominal Exam: Normal Bowel Sounds, Soft. absent: Distended, Guarding, Rebound, Tenderness - Rectal Exam Rectal Exam: Deferred - Extremities Exam Extremities exam: normal capillary refill, pedal pulses present Additional comments: RUE lymphedema with erythema - Back Exam Back exam: NORMAL INSPECTION - Neurological Exam Neurological exam: Alert, CN II-XII Intact, Oriented x3 - Psychiatric Exam Psychiatric exam: Normal Affect - Skin Skin Exam: Dry, Warm Discharge Plan - Discharge Medications Prescriptions: guaiFENesin [Mucinex LA] 600 mg PO BID #20 tab - Follow Up Plan Condition: IMPROVED Disposition: HOME/ ROUTINE Patient education suggested?: Yes Instructions: COPD (Chronic Obstructive Pulmonary Disease) (DC) Referrals: Bala Benz MD [Family Provider] -
[2017-06-08 16:19] VITALS: BP 110/54; RESP 14; TEMP 97.9
[2017-06-08 16:28] VITALS: PULSE 91
--- NOTE | 2017-06-08 20:16 | CP.PCM.DIS ---
Provider - Provider Date of Admission: 06/07/17 23:56 Attending physician: Joselo Noel MD Hospital Course - Lab Results Lab Results: Micro Results 06/06/17 18:50 Blood Blood Culture - Preliminary NO GROWTH AFTER 48 HOURS Most Recent Lab Values WBC 9.9 K/uL (4.8-10.8) 06/08/17 04:45 RBC 4.35 Mil/uL (3.80-5.20) 06/08/17 04:45 Hgb 11.9 g/dL (12.0-16.0) L 06/08/17 04:45 Hct 37.3 % (34.0-47.0) 06/08/17 04:45 MCV 85.8 fl (81.0-99.0) 06/08/17 04:45 MCH 27.5 pg (27.0-31.0) 06/08/17 04:45 MCHC 32.1 g/dL (33.0-37.0) L 06/08/17 04:45 RDW 17.2 % (11.5-14.5) H 06/08/17 04:45 Plt Count 255 K/uL (130-400) 06/08/17 04:45 MPV 7.2 fl (7.2-11.7) 06/06/17 18:56 Neut % (Auto) 66.2 % (50.0-75.0) 06/06/17 18:56 Lymph % (Auto) 17.3 % (20.0-40.0) L 06/06/17 18:56 [place] % (Auto) 14.3 % (0.0-10.0) H 06/06/17 18:56 Eos % (Auto) 1.3 % (0.0-4.0) 06/06/17 18:56 Baso % (Auto) 0.9 % (0.0-2.0) 06/06/17 18:56 Neut # 5.4 K/uL (1.8-7.0) 06/06/17 18:56 Lymph # 1.4 K/uL (1.0-4.3) 06/06/17 18:56 [place] # 1.2 K/uL (0.0-0.8) H 06/06/17 18:56 Eos # 0.1 K/uL (0.0-0.7) 06/06/17 18:56 Baso # 0.1 K/uL (0.0-0.2) 06/06/17 18:56 Sodium 139 mmol/l (132-148) 06/08/17 04:45 Potassium 4.3 MMOL/L (3.6-5.0) 06/08/17 04:45 Chloride 101 mmol/L (98-107) 06/08/17 04:45 Carbon Dioxide 31 mmol/L (22-30) H 06/08/17 04:45 Anion Gap 11 (10-20) 06/08/17 04:45 BUN 24 mg/dl (7-17) H 06/08/17 04:45 Creatinine 0.7 mg/dl (0.7-1.2) 06/08/17 04:45 Est GFR ( Amer) > 60 06/08/17 04:45 Est GFR (Non-Af Amer) > 60 06/08/17 04:45 Random Glucose 151 mg/dL (65-105) H 06/08/17 04:45 Calcium 9.0 mg/dL (8.4-10.2) 06/08/17 04:45 Total Bilirubin 0.8 mg/dl (0.2-1.3) 06/06/17 18:56 AST 27 U/L (14-36) 06/06/17 18:56 ALT 37 U/L (9-52) 06/06/17 18:56 Alkaline Phosphatase 74 U/L (38-126) 06/06/17 18:56 Troponin I 0.0130 ng/mL (0.00-0.120) 06/06/17 18:56 NT-Pro-B Natriuret Pep 3850 pg/ml (0-900) H 06/06/17 18:56 Total Protein 6.4 G/DL (6.3-8.2) 06/06/17 18:56 Albumin 3.3 g/dL (3.5-5.0) L D 06/06/17 18:56 Globulin 3.0 gm/dL (2.2-3.9) 06/06/17 18:56 Albumin/Globulin Ratio 1.1 (1.0-2.1) 06/06/17 18:56 - Hospital Course Hospital Course: She has been relatively stable, although she remains [place]. Her vital signs have been stable and she has been afebrile. Her glucose has been elevaqted, but likely to steroid therapy. Her cough is congested, but non-productive. Rhonchi are heard bilaterally which are partially cleared by deep cough. Expiratory phase is prolonged without distinct wheezing. Dry rales are heard in the lower lung corral bilaterally. An area of bronchial breath sounds is still noted in the RUL medially. The RUE is edematous and mildly erythematous. Agree she can probably be discharged to home today to continue her current regimrn. Prednisone can be taken at 10MG PO BID. She apparently needs to be placed back on her ciprofloxacin for the chronic cellulitis which develops because of the lymphedema in the RUE. She has been instructed to call the office in 48 hrs for followup appointment. Ciprofloxacin refill has been ordered electronically from her pharmacy. Discharge Exam - Head Exam Head Exam: ATRAUMATIC, NORMAL INSPECTION, NORMOCEPHALIC Discharge Plan - Discharge Medications Prescriptions: guaiFENesin [Mucinex LA] 600 mg PO BID #20 tab - Follow Up Plan Condition: FAIR Disposition: HOME/ ROUTINE Instructions: COPD (Chronic Obstructive Pulmonary Disease) (DC) Referrals: Bala Benz MD [Family Provider] -
== END 2017-06-08 17:00 | disposition home health service (06) | DRG 191 ==
LOC: H.ER 18:27 → H.ERHOLD 20:34 → H.TEL 06-07 00:59 → OBSVTOIN 06-07 23:56
PROVIDERS: ADMIT Internal Medicine; ATTEND Internal Medicine
PROC: 3E0F73Z Introduction of Anti-inflammatory into Respiratory Tract, Via Natural or Artificial Opening (ICD-10-PCS; principal; 2017-06-07)
DX: J44.1 Chronic obstructive pulmonary disease with (acute) exacerbation (principal); I50.42 Chronic combined systolic (congestive) and diastolic (congestive) heart failure; J96.11 Chronic respiratory failure with hypoxia; L03.113 Cellulitis of right upper limb; I47.1 Supraventricular tachycardia; I11.0 Hypertensive heart disease with heart failure; G62.9 Polyneuropathy, unspecified; Z99.81 Dependence on supplemental oxygen; M81.0 Age-related osteoporosis without current pathological fracture; E05.90 Thyrotoxicosis, unspecified without thyrotoxic crisis or storm; F41.9 Anxiety disorder, unspecified; G89.29 Other chronic pain; I89.0 Lymphedema, not elsewhere classified; D63.8 Anemia in other chronic diseases classified elsewhere; M19.90 Unspecified osteoarthritis, unspecified site; Z85.3 Personal history of malignant neoplasm of breast; Z90.13 Acquired absence of bilateral breasts and nipples; Z86.718 Personal history of other venous thrombosis and embolism; Z96.619 Presence of unspecified artificial shoulder joint; Z87.01 Personal history of pneumonia (recurrent); Z92.21 Personal history of antineoplastic chemotherapy; Z87.891 Personal history of nicotine dependence; Z79.811 Long term (current) use of aromatase inhibitors

== ENCOUNTER 2017-09-13 06:02 | Inpatient (IN) | payer MEDICARE, BC ==
[2017-09-13 06:03] VITALS: BMI 26.5
[2017-09-13] MEDS ORDERED: Albuterol-Ipratrop 3 mg / 0.5 (3 ml) UD INH STA ×2 (06:23→07:36)
--- NOTE | 2017-09-13 06:25 | ED PDOC ---
HPI: SOB/CHF/COPD Time Seen by Provider: 09/13/17 06:06 Chief Complaint (Nursing): Shortness Of Breath Chief Complaint (Provider): Shortness Of Breath History Per: Patient History/Exam Limitations: no limitations Onset/Duration Of Symptoms: Days (x 1) Current Respiratory Medications: Albuterol, Prednisone Associated Symptoms: denies: Fever Additional Complaint(s): 67 years old female with history of asthma, COPD, breast cancer and CHF presents to the ED today with complaints of shortness of breath onset 1 day. Patient reports experiencing asthma exacerbation and is on oxygen at home as needed. she admits taking Albuterol and Prednisone with minimal relief. She reports her last breast cancer was 8 years ago. Patient denies any fever or cough. PMD: [facility] Benz Past Medical History Reviewed: Historical Data, Nursing Documentation, Vital Signs Vital Signs: Last Vital Signs Temp 98 F 09/14/17 12:12 Pulse 106 H 09/14/17 12:12 Resp 18 09/14/17 12:12 BP 130/65 09/14/17 12:12 Pulse Ox 95 09/14/17 12:12 - Medical History PMH: Anemia, Anxiety, Arthritis, Asthma, Bronchitis, Cardia Arrhythmia, CHF, COPD, Fractures, Gall Bladder Disease, HTN, Hyperthyroidism (on methimazole), Hypothyroidism, Malignancy (breast CA), Osteoporosis, Pneumonia Denies: HIV, Chronic Kidney Disease - Surgical History Other surgeries: Mastectomy, shoulder surgery - Family History Family History: States: Unknown Family Hx - Social History Current smoker - smoking cessation education provided: No Ex-Smoker (has not smoked in the last 12 months): Yes Alcohol: None Drugs: Denies - Home Medications Home Medications: Ambulatory Orders Medication Instructions Recorded Acetaminophen [Tylenol 325mg tab] 650 mg PO Q6H PRN tab 11/15/16 Anastrozole 1 mg PO DAILY 12/12/16 Omeprazole 40 mg PO DAILY 12/12/16 Tiotropium [Spiriva] 18 mcg IH DAILY 12/12/16 Gabapentin [Neurontin] 600 mg PO TID #60 tab 12/21/16 Albuterol Sulfate [Proair Hfa] 2 puff INH PRN PRN 06/06/17 Albuterol/Ipratropium [Duoneb 3 3 ml INH Q6 PRN 06/06/17 mg/0.5 mg (3 ml) UD] Aspirin [Adult Low Dose Aspirin EC] 81 mg PO DAILY 06/06/17 Baclofen [Lioresal] 10 mg PO HS 06/06/17 Fluticasone/Vilanterol [Breo 1 puff INH DAILY 06/06/17 Ellipta 200-25 Mcg INH] Morphine Sulfate [Morphabond ER] 15 mg PO DAILY 06/06/17 Oxycodone HCl/Acetaminophen 1 tab PO Q6H 06/06/17 [Percocet 10-325 mg Tablet] methIMAzole [Tapazole] 10 mg PO DAILY 06/06/17 predniSONE [predniSONE Tab] 5 mg PO BID 06/06/17 guaiFENesin [Mucinex LA] 600 mg PO BID #20 tab 06/08/17 - Allergies Allergies/Adverse Reactions: Allergies Allergy/AdvReac Type Severity Reaction Status Date / Time paper tape Allergy RASH Uncoded 11/09/16 18:30 Review of Systems ROS Statement: Except As Marked, All Systems Reviewed And Found Negative Constitutional: Negative for: Fever Respiratory: Positive for: Shortness of Breath. Negative for: Cough Physical Exam - Reviewed Nursing Documentation Reviewed: Yes Vital Signs Reviewed: Yes - Physical Exam Appears: Positive for: Non-toxic, No Acute Distress Head Exam: Positive for: ATRAUMATIC, NORMOCEPHALIC Skin: Positive for: Normal Color, Warm, Dry ENT: Positive for: Normal ENT Inspection Neck: Positive for: Normal Cardiovascular/Chest: Positive for: Regular Rate, Rhythm. Negative for: Murmur Respiratory: Positive for: Wheezing. Negative for: Respiratory Distress Gastrointestinal/Abdominal: Positive for: Normal Exam Extremity: Positive for: Normal ROM (r arm limited secondary to lymphadema), Other (Chronic lymphedema to her right arm) Neurologic/Psych: Positive for: Alert, Oriented, Other (Speaks full sentences with labored breathing) - Laboratory Results Result Diagrams: 09/14/17 04:40 09/14/17 04:40 - ECG ECG Rhythm: Positive for: Sinus Tachycardia Rate: 115 O2 Sat by Pulse Oximetry: 97 (RA) Pulse Ox Interpretation: Normal Medical Decision Making Medical Decision Making: Time: 622 Initial Impression: short of breath r/o COPD and pneumonia. Initial Plan: --BNP --CMP --CBC --Chest X-Ray --Albuterol 3 ml INH --Peak flow pre/post Tx 07:00 -Patient will be signed out to Dr. Granda, pending labs, imaging and reevaluation. Scribe Attestation: Documented by Betty Gonzalez, acting as a scribe for Luis Enrique Chandler MD Provider Scribe Attestation: All medical record entries made by the Scribe were at my direction and personally dictated by me. I have reviewed the chart and agree that the record accurately reflects my personal performance of the history, physical exam, medical decision making, and the department course for this patient. I have also personally directed, reviewed, and agree with the discharge instructions and disposition. Disposition - Clinical Impression Clinical Impression: COPD with exacerbation - Patient ED Disposition Is Patient to be Admitted: Transfer of Care - Disposition Disposition: Transfer of Care Disposition Time: 07:00 Condition: FAIR
[2017-09-13] MEDS ORDERED: Albuterol-Ipratrop 3 mg / 0.5 (3 ml) UD ONE ×2 (06:40→07:43)
[2017-09-13 06:48] LABS: BASO # 0.1 K/uL (0.0-0.2); BASO % 0.6 % (0.0-2.0); EOS # 0.1 K/uL (0.0-0.7); EOS % 0.9 % (0.0-4.0); LYMPH % 9.4 % (20.0-40.0); MEAN CELL VOLUME 86.8 fl (81.0-99.0); MEAN CORPUSCULAR HEMOGLOBIN 28.4 pg (27.0-31.0); MEAN CORPUSCULAR HGB CONC 32.7 g/dL (33.0-37.0); MEAN PLATELET VOLUME 6.9 fl (7.2-11.7); MONO # 0.9 K/uL (0.0-0.8); MONO % 8.5 % (0.0-10.0); NEUT # 8.5 K/uL (1.8-7.0); NEUT % 80.6 % (50.0-75.0); PLATELET COUNT 276 K/uL (130-400); RBC 4.58 Mil/uL (3.80-5.20); RED CELL DISTRIBUTION WIDTH 16.5 % (11.5-14.5); WHITE BLOOD COUNT 10.6 K/uL (4.8-10.8)
[2017-09-13 07:00] LABS: ALB/GLOB RATIO 1.1 (1.0-2.1); ALBUMIN 3.4 g/dL (3.5-5.0); ALT/SGPT 26 U/L (9-52); AST/SGOT 31 U/L (14-36); BLOOD UREA NITROGEN 11 mg/dl (7-17); CALCIUM 8.9 mg/dL (8.4-10.2); GFR AFRICAN-AMERICAN > 60; GFR NON-AFRICAN AMERICAN > 60
--- NOTE | 2017-09-13 07:05 | ED PDOC ---
- Laboratory Results Result Diagrams: 09/13/17 06:40 09/13/17 06:40 - ECG O2 Sat by Pulse Oximetry: 97 (RA) - Progress ED Course And Treament: Pt reports continued SOB, O2 sat 92%. Condition: Improving,but remains with symptoms Medical Decision Making Medical Decision Makin:00 -Patient was endorsed to me by Dr. Chandler, pending labs, imaging and reevaluation 07:50 -Dr. Benz currently at [facility]. Disposition - Clinical Impression Clinical Impression: COPD with exacerbation - POA Present On Arrival: None - Disposition Disposition: Hospitalized as Observation Patient Disposition Time: 09:53 Condition: STABLE Forms: [facility] (Stateless)
[2017-09-13 07:07] LABS: B-TYPE NATRIURETIC PEPTIDE 1480 pg/ml (0-900)
--- NOTE | 2017-09-13 09:20 | CP.PCM.CON ---
History of Present Illness - History of Present Illness History of Present Illness: This 67-year-old female is well known to me from prior hospitalization as well as the outpatient setting. She suffers from severe chronic pulmonary disease and has been admitted in the past for exacerbation of same as well as pneumonia and septic shock. She has recently been complaining of more difficulty with shortness of breath and wheezing and has resumed theophylline extended release 300 mg twice daily. Theophylline blood level was requested and showed a high level of 19 resulting in decreasing her theophylline dose from 600 daily to a level of 400 daily. She came to emergency room this morning feeling hot but unaware of fever and having increased shortness of breath despite the use of all her regular medications as well as her nebulizer. A chest x-ray in the emergency department did not show any pneumonic infiltrate. She has also been taking prednisone at home and using oxygen via nasal cannula. Past Patient History - Infectious Disease Hx of Infectious Diseases: None - Tetanus Immunizations Tetanus Immunization: Unknown - Past Medical History & Family History Past Medical History?: Yes Pertinent Family History: Extensive FH of different cancers. - Past Social History Alcohol: None Drugs: Denies - CARDIAC Hx Cardia Arrhythmia: Yes Hx Congestive Heart Failure: Yes Hx Hypertension: Yes - PULMONARY Hx Asthma: Yes Hx Bronchitis: Yes Hx Chronic Obstructive Pulmonary Disease (COPD): Yes Hx Pneumonia: Yes - NEUROLOGICAL Hx Neurological Disorder: Yes Other/Comment: Peripheral neuropathy right lower extremity. 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 - RENAL Hx Chronic Kidney Disease: No - ENDOCRINE/METABOLIC Hx Hyperthyroidism: Yes (on methimazole) Hx Hypothyroidism: Yes - HEMATOLOGICAL/ONCOLOGICAL Hx Anemia: Yes Hx Human Immunodeficiency Virus (HIV): No - INTEGUMENTARY Hx Cellulitis: Yes (RUE) - MUSCULOSKELETAL/RHEUMATOLOGICAL Hx Arthritis: Yes Hx Fractures: Yes Hx Osteoporosis: Yes - GASTROINTESTINAL Hx Gall Bladder Disease: Yes - GENITOURINARY/GYNECOLOGICAL Hx Genitourinary Disorders: No - PSYCHIATRIC Hx Anxiety: Yes - SURGICAL HISTORY Hx Surgeries: Yes Hx Mastectomy: Yes (right in 1998; left in 2008) Hx Orthopedic Surgery: Yes (2003 rigtht shoulder prosthesis, removal of hardware 2013) Hx Tubal Ligation: Yes Other/Comment: shoulder and humerous replacement with joint space infection and eventual removal of hardware in right shoulder and chronic lymphedema of RUE, groin cyst removal, cervical spinal fusion 2007, lumbar spinal fusion 2007. - ANESTHESIA Hx Anesthesia: Yes Hx Anesthesia Reactions: No Hx Malignant Hyperthermia: No Meds Allergies/Adverse Reactions: Allergies Allergy/AdvReac Type Severity Reaction Status Date / Time paper tape Allergy RASH Uncoded 11/09/16 18:30 Physical Exam - Additional Findings Additional findings: Well nourished, well developed female lying in bed with nasal O2 and presently receiving neb treatment. Still tachypneic with respiratory muscle recruitment noted. No intercostal retractions. Flushed facies, no cyanosis. ++ lymphedema of right upper extremity, mild hyperemia w/o increased warmth. Clean dressing attached to right arm because of fluid drainage (serous). Pharynx is injected, dry mucous membranes, no infiltrate. Conjunctivae pink and non-icteric. Neck is supple, trachea is midline, healed tracheostomy scar. No visible JVD, no carotid bruit, no palpable thyromegaly. Assymetric thorax, increased AP diameter, hyper-resonant percussion. Breath sounds are present bilaterally, diminished. Prolonged expiratory phase with polyphonic I/E wheezes bilaterally. Scattered sonorous and sibilant rhonchi bilaterally, [id number] rales in lower lobes. Heart sounds are distant, rhythm is regular/tachy. Abdomen is soft, healed PEG tube scar, normal bowel sounds. No dependant edema of the lower extremities, no cyanosis, no calf tenderness. Results - Vital Signs Recent Vital Signs: Last Vital Signs Temp 97.9 F 09/13/17 07:35 Pulse 123 H 09/13/17 07:35 Resp 20 09/13/17 07:35 BP 136/64 09/13/17 07:35 Pulse Ox 97 09/13/17 08:01 - Labs Result Diagrams: 09/14/17 04:40 09/14/17 04:40 Labs: Laboratory Results - last 24 hr 09/13/17 09/13/17 09/13/17 06:40 06:40 06:43 WBC 10.6 RBC 4.58 Hgb 13.0 Hct 39.8 MCV 86.8 MCH 28.4 MCHC 32.7 L RDW 16.5 H Plt Count 276 MPV 6.9 L Neut % (Auto) 80.6 H Lymph % (Auto) 9.4 L [place] % (Auto) 8.5 Eos % (Auto) 0.9 Baso % (Auto) 0.6 Neut # (Auto) 8.5 H Lymph # (Auto) 1.0 [place] # (Auto) 0.9 H Eos # (Auto) 0.1 Baso # (Auto) 0.1 Sodium 139 Potassium 3.9 Chloride 99 Carbon Dioxide 27 Anion Gap 17 BUN 11 Creatinine 0.5 L Est GFR ( Amer) > 60 Est GFR (Non-Af Amer) > 60 POC Glucose (mg/dL) 82 Random Glucose 91 Calcium 8.9 Total Bilirubin 1.0 AST 31 ALT 26 Alkaline Phosphatase 82 Troponin I 0.0340 NT-Pro-B Natriuret Pep 1480 H Total Protein 6.6 Albumin 3.4 L Globulin 3.2 Albumin/Globulin Ratio 1.1 Assessment & Plan (1) Acute exacerbation of chronic obstructive pulmonary disease (COPD) Status: Acute Priority: High (2) Hyperthyroidism Status: Chronic Priority: Medium (3) Lymphedema of arm Status: Chronic Priority: Medium Comment: Related to metastatic breast cancer to right humerus with complicated orthopedic surgery and ultimate removal of implant because of wound infection. Recurrent cellulitis of RUE requiring chronic antibiotic suppression. - Assessment and Plan (Free Text) Plan: Agree with nebulizer therapies and parenteral corticosteroids. Supplemental oxygen as required. Electrolytes appear okay (CO2). Continue home maintenance medications. - Date & Time Date: 09/13/17 Time: 09:19
--- NOTE | 2017-09-13 10:12 | RAD ---
HISTORY: sob COMPARISON: Chest radiograph 06/06/2017. FINDINGS: LUNGS: No active pulmonary disease. PLEURA: No significant pleural effusion identified, no pneumothorax apparent. CARDIOVASCULAR: Normal. OSSEOUS STRUCTURES: Cervical spinal fusion device again identified. Postoperative changes status post resection of proximal right humerus again evident with heterotopic bone identified in the intervening soft tissues. Surgical clips again noted at the right axilla as well as acro-osteolysis or postop changes at the distal clavicles bilaterally. VISUALIZED UPPER ABDOMEN: Normal. OTHER FINDINGS: None. IMPRESSION: No acute infiltrate or pleural effusion bilaterally. Postoperative changes again evident at the cervical spine and right shoulder others described in bone section above.
[2017-09-13 10:31] LABS: ANISOCYTOSIS SLIGHT; BASOPHIL 1 % (0-2); LYMPHOCYTE 10 % (20-50); MONOCYTE 9 % (0-10); NEUTROPHIL 78 % (42-75); PLATELET ESTIMATE NORMAL (NORMAL); REACTIVE LYMPHOCYTES 2 % (0-0); TOTAL CELLS COUNTED 100
[2017-09-13] MEDS ORDERED: Oxycodone/Acetaminophen 5/325 mg Tab PO PRN (10:39)
[2017-09-13] MEDS ORDERED: OMEPRAZOLE 40 MG PO SCH (10:45)
[2017-09-13] MEDS ORDERED: MethylPREDNISolone 40 mg Vial IVP SCH (11:15)
--- NOTE | 2017-09-13 11:19 | CP.PCM.HP ---
History of Present Illness - History of Present Illness History of Present Illness: CC: Shortness of breath This is a 67 year old female with an extensive past medical history, including Chronic Respiratory Failure with Trach placed 07/2016 and decannulation 11/04/16 , s/p gastric tube placement and removal , CHF (systolic+diastolic), COPD, bilateral breast CA metastatic to right shoulder s/p chemo/rad 8 years ago (s/ p humerus resection) with chronic lymphedema RUE, HTN, hyperthyroidism, tachycardia/SVT, R cephalic vein thrombosis, anxiety, presenting to the ED with 2 day history of worsening SOB, wheezing, and non producting cough. She states that nothing improved these symptoms. Has had multiple admissions in the past year for similar issues. In the ED, the patient was diagnosed with acute COPD exacerbation and is being placed on observation for IV steroids, nebulizer treatment, and monitoring. Patient denies chest pain, shortness of breath, fevers, chills, nausea, vomiting, diarrhea, headache. All of the patient's and/ or family's questions were answered at the bedside. ROS: 14 systems reviewed, negative other than HPI MHx: Chronic Respiratory Failure , CHF (systolic+diastolic), COPD, bilateral metastatic breast CA to shoulder s/p chemo-XRT 8 years ago (s/p humerus resection) with chronic lymphedema RUE, HTN, hyperthyroidism, anemia of chronic disease, SVT, osteoporosis, R cephalic vein thrombosis, peripheral neuropathy, anxiety SHx: bilateral mastectomies R 1998/2008, total shoulder replacement (2003) + removal (2013), cervical and lumbar fusions 2007, cholecystectomy, tubal ligation, groin cyst removal; trach placed 07/2016, removed 11/04/16 Allergies: NKDA, but allergy to paper tape Medications: Per med rec Family Hx: Family history of cancer including ovarian, colon, breast, pancreatic and lung cancer Social Hx: Lives alone, smoked 40 p/y but quit a year ago, no current EtOH Present on Admission - Present on Admission Any Indicators Present on Admission: No Past Patient History - Infectious Disease Hx of Infectious Diseases: None - Tetanus Immunizations Tetanus Immunization: Unknown - Past Medical History & Family History Past Medical History?: Yes - Past Social History Alcohol: None Drugs: Denies - CARDIAC Hx Cardia Arrhythmia: Yes Hx Congestive Heart Failure: Yes Hx Hypertension: Yes - PULMONARY Hx Asthma: Yes Hx Bronchitis: Yes Hx Chronic Obstructive Pulmonary Disease (COPD): Yes Hx Pneumonia: Yes - NEUROLOGICAL Hx Neurological Disorder: Yes Other/Comment: Peripheral neuropathy right lower extremity. 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 - RENAL Hx Chronic Kidney Disease: No - ENDOCRINE/METABOLIC Hx Hyperthyroidism: Yes (on methimazole) Hx Hypothyroidism: Yes - HEMATOLOGICAL/ONCOLOGICAL Hx Anemia: Yes Hx Human Immunodeficiency Virus (HIV): No - INTEGUMENTARY Hx Cellulitis: Yes (RUE) - MUSCULOSKELETAL/RHEUMATOLOGICAL Hx Arthritis: Yes Hx Fractures: Yes Hx Osteoporosis: Yes - GASTROINTESTINAL Hx Gall Bladder Disease: Yes - GENITOURINARY/GYNECOLOGICAL Hx Genitourinary Disorders: No - PSYCHIATRIC Hx Anxiety: Yes - SURGICAL HISTORY Hx Surgeries: Yes Hx Mastectomy: Yes (right in 1998; left in 2008) Hx Orthopedic Surgery: Yes (2003 rigtht shoulder prosthesis, removal of hardware 2013) Hx Tubal Ligation: Yes Other/Comment: shoulder and humerous replacement with joint space infection and eventual removal of hardware in right shoulder and chronic lymphedema of RUE, groin cyst removal, cervical spinal fusion 2007, lumbar spinal fusion 2007. - ANESTHESIA Hx Anesthesia: Yes Hx Anesthesia Reactions: No Hx Malignant Hyperthermia: No Meds Allergies/Adverse Reactions: Allergies Allergy/AdvReac Type Severity Reaction Status Date / Time paper tape Allergy RASH Uncoded 11/09/16 18:30 Physical Exam - Additional Findings Additional findings: Physical exam: Constitutional- cooperative, awake, alert Head- NCAT, PERRL Eye- PERRL, EOMI ENT- normal exam, MMM. Neck- normal inspection, supple, no JVD Respiratory- Diffuse wheezes, rhonchi Cardiovascular- tachycardia, regular rhythm +S1, +S2 no MRG GI/Abdominal- normal bowel sounds, soft, no mass, no hsm Skin- warm, dry Extremities Exam- left upper extremity chronic lymphedema, normal capillary refill, normal inspection Neurological Exam- alert, awake, oriented Psych- normal mood, normal affect Results - Vital Signs Recent Vital Signs: Last Vital Signs Temp 97.9 F 09/13/17 07:35 Pulse 106 H 09/13/17 09:55 Resp 16 09/13/17 09:55 BP 132/75 09/13/17 09:55 Pulse Ox 94 L 09/13/17 09:55 - Labs Result Diagrams: 09/13/17 06:40 09/13/17 06:40 Labs: Laboratory Results - last 24 hr 09/13/17 09/13/17 09/13/17 06:40 06:40 06:43 WBC 10.6 RBC 4.58 Hgb 13.0 Hct 39.8 MCV 86.8 MCH 28.4 MCHC 32.7 L RDW 16.5 H Plt Count 276 MPV 6.9 L Neut % (Auto) 80.6 H Lymph % (Auto) 9.4 L [place] % (Auto) 8.5 Eos % (Auto) 0.9 Baso % (Auto) 0.6 Neut # (Auto) 8.5 H Lymph # (Auto) 1.0 [place] # (Auto) 0.9 H Eos # (Auto) 0.1 Baso # (Auto) 0.1 Neutrophils % (Manual) 78 H Lymphocytes % (Manual) 10 L Reactive Lymphs % 2 H Monocytes % (Manual) 9 Basophils % (Manual) 1 Platelet Estimate Normal Anisocytosis (manual) Slight Sodium 139 Potassium 3.9 Chloride 99 Carbon Dioxide 27 Anion Gap 17 BUN 11 Creatinine 0.5 L Est GFR ( Amer) > 60 Est GFR (Non-Af Amer) > 60 POC Glucose (mg/dL) 82 Random Glucose 91 Calcium 8.9 Total Bilirubin 1.0 AST 31 ALT 26 Alkaline Phosphatase 82 Troponin I 0.0340 NT-Pro-B Natriuret Pep 1480 H Total Protein 6.6 Albumin 3.4 L Globulin 3.2 Albumin/Globulin Ratio 1.1
[2017-09-13] MEDS: guaiFENesin 600 mg ER Tab PO SCH ×2 (11:53→22:06)
[2017-09-13] MEDS: Tiotropium 18 mcg Cap For Inhalation IH SCH (11:54)
[2017-09-13] MEDS: Fluticasone-Salmeterol 250-50mcg Diskus INH SCH ×2 (11:55→17:39)
[2017-09-13] MEDS: Enoxaparin 40 mg Syringe SC SCH (11:57)
[2017-09-13] MEDS: Albuterol-Ipratrop 3 mg / 0.5 (3 ml) UD INH SCH (16:05)
[2017-09-13] MEDS ORDERED: methylPREDNISolone 60 MG in Sodium Chloride 0.9% 50 ML IVPB SCH (17:00)
[2017-09-14 05:45] LABS: HEMOGLOBIN 13.1 g/dL (12.0-16.0); MEAN CELL VOLUME 86.7 fl (81.0-99.0); MEAN CORPUSCULAR HEMOGLOBIN 28.3 pg (27.0-31.0); MEAN CORPUSCULAR HGB CONC 32.6 g/dL (33.0-37.0); RBC 4.64 Mil/uL (3.80-5.20); RED CELL DISTRIBUTION WIDTH 15.8 % (11.5-14.5); WHITE BLOOD COUNT 10.8 K/uL (4.8-10.8)
[2017-09-14 06:29] LABS: BLOOD UREA NITROGEN 16 mg/dl (7-17); CALCIUM 9.4 mg/dL (8.4-10.2); GFR AFRICAN-AMERICAN > 60; GFR NON-AFRICAN AMERICAN > 60
[2017-09-14] MEDS ORDERED: Potassium Chloride 20 mEq ER Tab PO ONE (07:40)
[2017-09-14] MEDS: Albuterol-Ipratrop 3 mg / 0.5 (3 ml) UD INH SCH (07:56)
[2017-09-14] MEDS: Fluticasone-Salmeterol 250-50mcg Diskus INH SCH ×2 (09:41→16:26)
[2017-09-14] MEDS: Morphine 15 mg SR Tab PO SCH (09:42)
[2017-09-14] MEDS: Enoxaparin 40 mg Syringe SC SCH (09:45)
--- NOTE | 2017-09-14 09:45 | CP.PCM.PN ---
Subjective - Date & Time of Evaluation Date of Evaluation: 09/14/17 Time of Evaluation: 09:44 - Subjective Subjective: Seen on morning rounds and telemetry. She appears significantly improved from the day prior. He continues to be tachycardic and mildly tachypneic but not short of breath at rest. No dependent edema of lower extremities but multiple areas of ecchymosis and excoriations are noted on both legs. No lymphadenopathy. Neck is supple and trachea is midline. Becomes mildly to moderately dyspneic with simple conversation. Chest is hyperresonant to percussion. Breath sounds are diminished bilaterally. Low pitched expiratory wheezes are still present bilaterally. Expiratory phase remains prolonged. Try to medium rales are heard in the lower lobes bilaterally. Heart sounds are well heard and the rhythm is regular/tachycardic. Lymphedema of the right upper extremity is status quo without any further drainage noted. No erythema or increased warmth of the right upper extremity. We'll begin roflumilast, 500 g once daily (pharmacy does not stock the lower 250 g dose unfortunately most [place]. Albuterol/ipratropium via nebulizer will now be changed to 4 times a day when necessary. Continue daily use of Advair 250/50 and Spiriva 18 mg. Will reduce Solu-Medrol to 60 mg twice daily. Physical therapy eval for ambulation. We'll begin Cipro 250 once daily for suppression of recurring cellulitis in the right upper extremity. Objective - Vital Signs/Intake and Output Vital Signs (last 24 hours): Temp Pulse Resp BP Pulse Ox 97.7 F 93 H 18 131/62 94 L 09/14/17 07:53 09/14/17 07:53 09/14/17 07:53 09/14/17 07:53 09/14/17 07:53 - Medications Medications: Current Medications Acetaminophen (Tylenol 325mg Tab) 650 mg PO Q6H PRN PRN Reason: Pain, Mild (1-3) Last Admin: 09/13/17 22:07 Dose: 650 mg Albuterol/Ipratropium (Duoneb 3 Mg/0.5 Mg (3 Ml) Ud) 3 ml INH RQID [facility] Last Admin: 09/14/17 07:56 Dose: 3 ml Anastrozole (Arimidex 1 Mg Tab) 1 mg PO DAILY [facility] Last Admin: 09/14/17 09:43 Dose: 1 mg Aspirin (Ecotrin) 81 mg PO DAILY [facility] Baclofen (Lioresal) 10 mg PO HS [facility] Last Admin: 09/13/17 22:05 Dose: 10 mg Enoxaparin Sodium (Lovenox) 40 mg SC DAILY [facility] PRN Reason: Protocol Last Admin: 09/13/17 11:57 Dose: 40 mg Gabapentin (Neurontin) 600 mg PO TID [facility] Last Admin: 09/13/17 17:40 Dose: 600 mg Guaifenesin (Mucinex La) 600 mg PO BID [facility] Last Admin: 09/13/17 22:06 Dose: 600 mg Methimazole (Tapazole) 10 mg PO DAILY [facility] Last Admin: 09/13/17 11:58 Dose: 10 mg Methylprednisolone (Solu-Medrol) 60 mg IVP Q8H [facility] Last Admin: 09/14/17 05:55 Dose: 60 mg Morphine Sulfate (Morphine Extended Release Tab) 15 mg PO DAILY [facility] Last Admin: 09/14/17 09:42 Dose: 15 mg Oxycodone/Acetaminophen (Percocet 5/325 Mg Tab) 1 tab PO Q6H PRN PRN Reason: Pain 4-10 Pantoprazole Sodium (Protonix Ec Tab) 40 mg PO DAILY [facility] Roflumilast (Daliresp) 500 mcg PO DAILY [facility] Fluticasone/Salmeterol (Advair Diskus 250/50) 1 puff INH BID [facility] Last Admin: 09/14/17 09:41 Dose: 1 puff Tiotropium [place] (Spiriva) 18 mcg IH DAILY [facility] Last Admin: 09/13/17 11:54 Dose: 18 mcg Zolpidem Tartrate (Ambien) 5 mg PO HS PRN PRN Reason: Insomnia Last Admin: 09/13/17 22:07 Dose: 5 mg - Labs Labs: 09/14/17 04:40 09/14/17 04:40 Assessment and Plan (1) Acute exacerbation of chronic obstructive pulmonary disease (COPD) Status: Acute (2) Hyperthyroidism Status: Chronic (3) Lymphedema of arm Status: Chronic
[2017-09-14] MEDS: guaiFENesin 600 mg ER Tab PO SCH (09:46)
[2017-09-14] MEDS: Pantoprazole 40 mg EC Tab PO SCH (09:46)
[2017-09-14] MEDS: Tiotropium 18 mcg Cap For Inhalation IH SCH (09:46)
--- NOTE | 2017-09-14 10:06 | CP.PCM.PN ---
Subjective - Date & Time of Evaluation Date of Evaluation: 09/14/17 Time of Evaluation: 09:30 - Subjective Subjective: SOB ob exertion - pt was dyspneic when RN walked her to the bathroom mild wheeze no fever occ cough denies CP no palpitation no abd pain Objective - Vital Signs/Intake and Output Vital Signs (last 24 hours): Temp Pulse Resp BP Pulse Ox 97.7 F 93 H 18 131/62 94 L 09/14/17 07:53 09/14/17 07:53 09/14/17 07:53 09/14/17 07:53 09/14/17 07:53 - Medications Medications: Current Medications Acetaminophen (Tylenol 325mg Tab) 650 mg PO Q6H PRN PRN Reason: Pain, Mild (1-3) Last Admin: 09/13/17 22:07 Dose: 650 mg Albuterol/Ipratropium (Duoneb 3 Mg/0.5 Mg (3 Ml) Ud) 3 ml INH RQID [facility] Last Admin: 09/14/17 07:56 Dose: 3 ml Anastrozole (Arimidex 1 Mg Tab) 1 mg PO DAILY [facility] Last Admin: 09/14/17 09:43 Dose: 1 mg Aspirin (Ecotrin) 81 mg PO DAILY [facility] Last Admin: 09/14/17 09:44 Dose: 81 mg Baclofen (Lioresal) 10 mg PO HS [facility] Last Admin: 09/13/17 22:05 Dose: 10 mg Enoxaparin Sodium (Lovenox) 40 mg SC DAILY [facility] PRN Reason: Protocol Last Admin: 09/14/17 09:45 Dose: 40 mg Gabapentin (Neurontin) 600 mg PO TID [facility] Last Admin: 09/14/17 09:45 Dose: 600 mg Guaifenesin (Mucinex La) 600 mg PO BID [facility] Last Admin: 09/14/17 09:46 Dose: 600 mg Methimazole (Tapazole) 10 mg PO DAILY [facility] Last Admin: 09/13/17 11:58 Dose: 10 mg Methylprednisolone (Solu-Medrol) 60 mg IVP Q8H [facility] Last Admin: 09/14/17 05:55 Dose: 60 mg Morphine Sulfate (Morphine Extended Release Tab) 15 mg PO DAILY [facility] Last Admin: 09/14/17 09:42 Dose: 15 mg Oxycodone/Acetaminophen (Percocet 5/325 Mg Tab) 1 tab PO Q6H PRN PRN Reason: Pain 4-10 Pantoprazole Sodium (Protonix Ec Tab) 40 mg PO DAILY [facility] Last Admin: 09/14/17 09:46 Dose: 40 mg Roflumilast (Daliresp) 500 mcg PO DAILY [facility] Fluticasone/Salmeterol (Advair Diskus 250/50) 1 puff INH BID [facility] Last Admin: 09/14/17 09:41 Dose: 1 puff Tiotropium [place] (Spiriva) 18 mcg IH DAILY [facility] Last Admin: 09/14/17 09:46 Dose: 18 mcg Zolpidem Tartrate (Ambien) 5 mg PO HS PRN PRN Reason: Insomnia Last Admin: 09/13/17 22:07 Dose: 5 mg - Labs Labs: 09/14/17 04:40 09/14/17 04:40 - Constitutional Appears: No Acute Distress, Chronically Ill - Head Exam Head Exam: ATRAUMATIC, NORMAL INSPECTION, NORMOCEPHALIC - Eye Exam Eye Exam: EOMI, Normal appearance Pupil Exam: NORMAL ACCOMODATION - ENT Exam ENT Exam: Mucous Membranes Moist, Normal External Ear Exam - Neck Exam Neck Exam: Full ROM. absent: Meningismus - Respiratory Exam Respiratory Exam: Accessory Muscle Use, Rhonchi, Wheezes - Cardiovascular Exam Cardiovascular Exam: REGULAR RHYTHM, +S1, +S2 - GI/Abdominal Exam GI & Abdominal Exam: Soft, Normal Bowel Sounds. absent: Tenderness - Extremities Exam Extremities Exam: Normal Capillary Refill. absent: Calf Tenderness Additional comments: right arm lymphedema - Back Exam Back Exam: Full ROM. absent: CVA tenderness (L), CVA tenderness (R) - Neurological Exam Neurological Exam: Alert, Awake, Oriented x3 - Psychiatric Exam Psychiatric exam: Normal Affect, Normal Mood - Skin Skin Exam: Dry, Normal Color, Warm Assessment and Plan - Assessment and Plan (Free Text) Assessment: 67 y/o lady with known hx of COPD, CHF, Hyperthyroidism, Breast CA s/p Mastectomy, Chronic right arm Lymphedema came because of SOB. Found to be oliva COPD exacerbation CXR: no acute infiltrate 1. Acute on chronic COPD exacerbation CXR showed no infiltrate or active disease Continue Duonebs, Solumedrol 60 mg IV Q8 pulmonary consulted, Dr. Benz cont Oxygen per NC cont Advair and Spiriva off Theophylline , now on Daliresp 2.CHF (congestive heart failure), systolic and diastolic, chronic stable Chronic Systolic and Diastolic Heart Failure LAST ECHO 06/14/2016: Mild to moderate decreased LVEF 40-45%, RV moderately dilated, decreased RV function, Diastolic inflow pattern restrictive start Low dose Losartan prn Lasix 3.Hx Bilateral Mastectomy, breast CA with chronic lymphedema RUE and peripheral neuropathy Continue Arimidex 1 mg po Daily Continue Gabapentin 600 mg po q8h 4. Mild RUE Cellulitis , recurrent started on PO Cipro cont to monitor 5.Hyperthyroidism on Tapazole 6. Chronic pain Percocet PRN VTE ppx Lovenox SCD
[2017-09-14] MEDS ORDERED: Albuterol-Ipratrop 3 mg / 0.5 (3 ml) UD INH PRN (10:49)
[2017-09-14] MEDS ORDERED: methylPREDNISolone 60 MG in Sodium Chloride 0.9% 50 ML IV SCH (21:00)
[2017-09-15 06:25] LABS: B-TYPE NATRIURETIC PEPTIDE 2590 pg/ml (0-900)
[2017-09-15 06:27] LABS: BLOOD UREA NITROGEN 20 mg/dl (7-17); CALCIUM 9.4 mg/dL (8.4-10.2); GFR AFRICAN-AMERICAN > 60; GFR NON-AFRICAN AMERICAN > 60
[2017-09-15 06:32] LABS: T4 5.01 ug/dl (5.5-11.0)
[2017-09-15 06:46] LABS: T3 0.776 nmol/L (1.49-2.60)
--- NOTE | 2017-09-15 08:41 | CP.PCM.PN ---
Subjective - Date & Time of Evaluation Date of Evaluation: 09/15/17 Time of Evaluation: 08:33 - Subjective Subjective: Lying in bed comfortably, asleep, no respiratory distress. Awakened, claims she feels 'okay'. Slept poorly last night, cough, non-productive. Vital signs remain stable, continues to be afebrile. Did not begin roflumilast yesterday, reason? Solumedrol dose was reduced yesterday to 60MG Q12H. Lymphedema in RUE is less after maintainig arm in a raised position. Some spontaneous drainage of serous fluid noted again; small amount. No other dependant edema, no cyanosis, no erythema. Neck is supple and trachea midline, no JVD. Chest is hyper-resonant on percussion. Breath sounds are very diminished bilaterally w/o audible wheezes. Occasional dependant dry rales in lower lobes. Heart sounds are distant, regular rhythm, 90BPM. Hopefully will begin roflumilast today. Reduce solumedrol to 40MG Q12H. Maintain other medications unchanged. Add O2 tubing so patient may ambulate to the bathroom. Hopeful she may be discharged by tomorrow. Objective - Vital Signs/Intake and Output Vital Signs (last 24 hours): Temp Pulse Resp BP Pulse Ox 98.2 F 88 20 126/68 97 09/15/17 08:16 09/15/17 08:16 09/15/17 08:16 09/15/17 08:16 09/15/17 08:16 Intake and Output: 09/14/17 09/15/17 23:59 11:59 Intake Total 850 Balance 850 - Medications Medications: Current Medications Acetaminophen (Tylenol 325mg Tab) 650 mg PO Q6H PRN PRN Reason: Pain, Mild (1-3) Last Admin: 09/13/17 22:07 Dose: 650 mg Albuterol/Ipratropium (Duoneb 3 Mg/0.5 Mg (3 Ml) Ud) 3 ml INH RQID PRN PRN Reason: Shortness of Breath Last Admin: 09/14/17 14:36 Dose: 3 ml Anastrozole (Arimidex 1 Mg Tab) 1 mg PO DAILY [facility] Last Admin: 09/14/17 09:43 Dose: 1 mg Aspirin (Ecotrin) 81 mg PO DAILY [facility] Last Admin: 09/14/17 09:44 Dose: 81 mg Baclofen (Lioresal) 10 mg PO HS [facility] Last Admin: 09/14/17 21:56 Dose: 10 mg Ciprofloxacin (Cipro) 250 mg PO DAILY [facility] PRN Reason: Protocol Last Admin: 09/14/17 13:00 Dose: 250 mg Enoxaparin Sodium (Lovenox) 40 mg SC DAILY [facility] PRN Reason: Protocol Last Admin: 09/14/17 09:45 Dose: 40 mg Gabapentin (Neurontin) 600 mg PO TID [facility] Last Admin: 09/14/17 16:30 Dose: 600 mg Guaifenesin (Mucinex La) 600 mg PO BID [facility] Last Admin: 09/14/17 09:46 Dose: 600 mg Methylprednisolone 40 mg/ (Sodium Chloride) 50 mls @ 100 mls/hr IV Q12 [facility] Losartan Potassium (Cozaar) 25 mg PO DAILY [facility] Methimazole (Tapazole) 10 mg PO DAILY [facility] Last Admin: 09/14/17 09:29 Dose: 10 mg Methylprednisolone (Solu-Medrol) 60 mg IV Q12 [facility] Stop: 09/15/17 10:00 Last Admin: 09/14/17 21:00 Dose: 60 mg Morphine Sulfate (Morphine Extended Release Tab) 15 mg PO DAILY [facility] Last Admin: 09/14/17 09:42 Dose: 15 mg Oxycodone/Acetaminophen (Percocet 5/325 Mg Tab) 1 tab PO Q6H PRN PRN Reason: Pain 4-10 Pantoprazole Sodium (Protonix Ec Tab) 40 mg PO DAILY [facility] Last Admin: 09/14/17 09:46 Dose: 40 mg Roflumilast (Daliresp) 500 mcg PO DAILY [facility] Fluticasone/Salmeterol (Advair Diskus 250/50) 1 puff INH BID [facility] Last Admin: 09/14/17 16:26 Dose: 1 puff Tiotropium [place] (Spiriva) 18 mcg IH DAILY [facility] Last Admin: 09/14/17 09:46 Dose: 18 mcg Zolpidem Tartrate (Ambien) 5 mg PO HS PRN PRN Reason: Insomnia Last Admin: 09/14/17 21:58 Dose: 5 mg - Labs Labs: 09/14/17 04:40 09/15/17 04:30 Assessment and Plan (1) Acute exacerbation of chronic obstructive pulmonary disease (COPD) Assessment & Plan: Asthma/COPD overlap. 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
[2017-09-15] MEDS: Fluticasone-Salmeterol 250-50mcg Diskus INH SCH ×2 (09:06→16:40)
[2017-09-15] MEDS: Pantoprazole 40 mg EC Tab PO SCH (09:10)
[2017-09-15] MEDS: Enoxaparin 40 mg Syringe SC SCH (09:10)
[2017-09-15] MEDS: guaiFENesin 600 mg ER Tab PO SCH ×2 (09:10→16:40)
[2017-09-15] MEDS: Tiotropium 18 mcg Cap For Inhalation IH SCH (09:11)
[2017-09-15] MEDS: Morphine 15 mg SR Tab PO SCH (09:15)
--- NOTE | 2017-09-15 11:22 | CP.PCM.PN ---
Subjective - Date & Time of Evaluation Date of Evaluation: 09/15/17 Time of Evaluation: 08:00 - Subjective Subjective: Patient was seen and evaluated bedside. Sitting in chair. With persistent coughing spells, non productive. States that her breathing is improving since admission, but still with on and off SOB.Unable to sleep and rest well overniht.Admits to feeling mere depressed lately , with crying spells, not suicidal. 02Sat as low as 85 % on 2 L O2 via NC Afebrile Objective - Vital Signs/Intake and Output Vital Signs (last 24 hours): Temp Pulse Resp BP Pulse Ox 98.2 F 87 20 126/68 97 09/15/17 08:16 09/15/17 09:08 09/15/17 08:16 09/15/17 09:08 09/15/17 08:16 - Medications Medications: Current Medications Acetaminophen (Tylenol 325mg Tab) 650 mg PO Q6H PRN PRN Reason: Pain, Mild (1-3) Last Admin: 09/13/17 22:07 Dose: 650 mg Albuterol/Ipratropium (Duoneb 3 Mg/0.5 Mg (3 Ml) Ud) 3 ml INH RQID PRN PRN Reason: Shortness of Breath Last Admin: 09/14/17 14:36 Dose: 3 ml Anastrozole (Arimidex 1 Mg Tab) 1 mg PO DAILY [facility] Last Admin: 09/15/17 09:07 Dose: 1 mg Aspirin (Ecotrin) 81 mg PO DAILY [facility] Last Admin: 09/15/17 09:10 Dose: 81 mg Baclofen (Lioresal) 10 mg PO HS [facility] Last Admin: 09/14/17 21:56 Dose: 10 mg Ciprofloxacin (Cipro) 250 mg PO DAILY [facility] PRN Reason: Protocol Last Admin: 09/15/17 09:08 Dose: 250 mg Enoxaparin Sodium (Lovenox) 40 mg SC DAILY [facility] PRN Reason: Protocol Last Admin: 09/15/17 09:10 Dose: 40 mg Gabapentin (Neurontin) 600 mg PO TID [facility] Last Admin: 09/15/17 09:10 Dose: 600 mg Guaifenesin (Mucinex La) 600 mg PO BID [facility] Last Admin: 09/15/17 09:10 Dose: 600 mg Losartan Potassium (Cozaar) 25 mg PO DAILY [facility] Last Admin: 09/15/17 09:08 Dose: 25 mg Methimazole (Tapazole) 10 mg PO DAILY [facility] Last Admin: 09/15/17 09:11 Dose: 10 mg Methylprednisolone (Solu-Medrol) 40 mg IVP Q12 [facility] Morphine Sulfate (Morphine Extended Release Tab) 15 mg PO DAILY [facility] Last Admin: 09/15/17 09:15 Dose: 15 mg Ondansetron HCl (Zofran Tab) 4 mg PO Q4 PRN PRN Reason: Nausea/Vomiting Last Admin: 09/15/17 10:17 Dose: 4 mg Oxycodone/Acetaminophen (Percocet 5/325 Mg Tab) 1 tab PO Q6H PRN PRN Reason: Pain 4-10 Pantoprazole Sodium (Protonix Ec Tab) 40 mg PO DAILY [facility] Last Admin: 09/15/17 09:10 Dose: 40 mg Roflumilast (Daliresp) 500 mcg PO DAILY [facility] Last Admin: 09/15/17 09:09 Dose: 500 mcg Fluticasone/Salmeterol (Advair Diskus 250/50) 1 puff INH BID [facility] Last Admin: 09/15/17 09:06 Dose: 1 puff Sertraline HCl (Zoloft) 50 mg PO HS [facility] Tiotropium [place] (Spiriva) 18 mcg IH DAILY [facility] Last Admin: 09/15/17 09:11 Dose: 18 mcg Zolpidem Tartrate (Ambien) 5 mg PO HS PRN PRN Reason: Insomnia Last Admin: 09/14/17 21:58 Dose: 5 mg - Labs Labs: 09/14/17 04:40 09/15/17 04:30 - Constitutional Appears: Non-toxic, Chronically Ill, Other (with coughing spells at rest ) - Head Exam Head Exam: ATRAUMATIC, NORMOCEPHALIC - Eye Exam Eye Exam: PERRL Pupil Exam: NORMAL ACCOMODATION - ENT Exam ENT Exam: Mucous Membranes Moist, Normal Exam - Respiratory Exam Respiratory Exam: Decreased Breath Sounds (bibasilar more on the right ). absent: Rhonchi, Wheezes Additional comments: coughing spells - Cardiovascular Exam Cardiovascular Exam: REGULAR RHYTHM, +S1, +S2. absent: JVD - GI/Abdominal Exam GI & Abdominal Exam: Soft, Normal Bowel Sounds. absent: Distended, Guarding, Tenderness, Rebound - Rectal Exam Rectal Exam: Deferred - Extremities Exam Extremities Exam: absent: Pedal Edema Additional comments: Right upper ext lymphedema( chronic ) - Back Exam Back Exam: NORMAL INSPECTION - Neurological Exam Neurological Exam: Alert, Awake, CN II-XII Intact, Oriented x3 - Psychiatric Exam Psychiatric exam: Normal Affect - Skin Skin Exam: Dry, Pallor, Warm Assessment and Plan - Assessment and Plan (Free Text) Assessment: 67 y/o F with known hx of COPD, CHF, Hyperthyroidism, Breast CA s/p Mastectomy , Chronic right arm Lymphedema came because worsening SOB and wheezing despite treatment with Duonebs, prednisone and OL2 as outpatient. She was diagnosed with COPD exacerbation started on high doses Solumedrol IV, Duonebs RTC, Mucinex , O2 via NC and pulmonary consulted Clinically showing improvement but still with coughing spells, non productive and SOB 1. Acute on chronic COPD exacerbation-- clinically showing improvement still with coughing spells, SOB and decreased air entry bibasilar CXR showed no infiltrate or active disease Continue Duonebs, O2 via NC, mucinex Decreased Solumedrol 40 mg IV Q12 Started on daliresp as per pulmonary and discontinued Theophilline due to high levels in blood pulmonary consult appreciated and case discussed with Dr. Demar Horner and Mohit 2.CHF (congestive heart failure), systolic and diastolic, chronic stable Chronic Systolic and Diastolic Heart Failure LAST ECHO 06/14/2016: Mild to moderate decreased LVEF 40-45%, RV moderately dilated, decreased RV function, Diastolic inflow pattern restrictive on Losartan Will give Lasix 40 mg IV x 1 dose today since BNP trending up 3.Hx Bilateral Mastectomy, breast CA with chronic lymphedema RUE and peripheral neuropathy Continue Arimidex 1 mg po Daily Continue Gabapentin 600 mg po q8h 4. Mild RUE Cellulitis , recurrent on PO Cipro cont to monitor 5.Hyperthyroidism on Tapazole 6. Chronic pain Percocet PRN 7. Depression Admits to feeling depressed , not suicidal Start low dose Zoloft bedtime 8.VTE ppx Lovenox SCD
[2017-09-15] MEDS ORDERED: methylPREDNISolone 40 MG in Sodium Chloride 0.9% 50 ML IV SCH (21:00)
[2017-09-15] MEDS: MethylPREDNISolone 40 mg Vial IVP SCH (21:07)
[2017-09-16 00:11] VITALS: RESP 18
[2017-09-16 06:44] LABS: HEMOGLOBIN 12.6 g/dL (12.0-16.0); MEAN CELL VOLUME 86.4 fl (81.0-99.0); MEAN CORPUSCULAR HEMOGLOBIN 28.7 pg (27.0-31.0); MEAN CORPUSCULAR HGB CONC 33.2 g/dL (33.0-37.0); RBC 4.4 Mil/uL (3.80-5.20); RED CELL DISTRIBUTION WIDTH 16.2 % (11.5-14.5); WHITE BLOOD COUNT 10.6 K/uL (4.8-10.8)
[2017-09-16 06:59] LABS: BLOOD UREA NITROGEN 25 mg/dl (7-17); CALCIUM 8.6 mg/dL (8.4-10.2); GFR AFRICAN-AMERICAN > 60; GFR NON-AFRICAN AMERICAN > 60
[2017-09-16] MEDS: Fluticasone-Salmeterol 250-50mcg Diskus INH SCH ×2 (08:57→17:31)
[2017-09-16] MEDS: Enoxaparin 40 mg Syringe SC SCH (08:59)
[2017-09-16] MEDS: guaiFENesin 600 mg ER Tab PO SCH (09:01)
[2017-09-16] MEDS: Tiotropium 18 mcg Cap For Inhalation IH SCH (09:01)
[2017-09-16] MEDS: Pantoprazole 40 mg EC Tab PO SCH (09:02)
[2017-09-16] MEDS: MethylPREDNISolone 40 mg Vial IVP SCH (09:03)
[2017-09-16] MEDS: Morphine 15 mg SR Tab PO SCH (09:09)
--- NOTE | 2017-09-16 09:11 | CP.PCM.PN ---
Subjective - Date & Time of Evaluation Date of Evaluation: 09/16/17 Time of Evaluation: 09:00 - Subjective Subjective: Appears to be doing FAIR. Had episode of itching yesterday requiring Benadryl (?roflumilast?). Still experiencing [place], even mildly so with conversation. Reinforced pursed lip breathing technique with her. RUE lymphedema is stable, no increased warmth or erythema. Neck is supple, no visible JVD. No dullness on chest percussion, no subcut emphysema. Late expiratory, polyphonic wheezes bilaterally in LL's, more R than L. Dry to medium rales scattered in both LL's, no bronchial breathing. Heart sounds well heard, rhythm regular in the 80's. No dependant edema or cyanosis. Plan for discharge medications include; Breo Ellipta 100mcg, 1 puff daily. Spiriva 18mcg inhaled daily. Albuterol/ipratropium via neb QID-prn. Albuterol rescue inhaler as needed. Roflumilast 500mcg POOD. Prednisone 10MG tabs; 20MG PO TID, reduce dose by 5MG Q3D. Continue prophylactic ciprofloxacin 250MG OD (quickly develops cellulitis when stopped). May be a candidate for NPPV at home besides just having oxygen; will investigate qualifying regs. Followup with myself 3-4 days post DC. Objective - Vital Signs/Intake and Output Vital Signs (last 24 hours): Temp Pulse Resp BP Pulse Ox 98.1 F 82 18 119/64 97 09/16/17 08:08 09/16/17 08:08 09/16/17 08:08 09/16/17 08:08 09/16/17 08:08 - Medications Medications: Current Medications Acetaminophen (Tylenol 325mg Tab) 650 mg PO Q6H PRN PRN Reason: Pain, Mild (1-3) Last Admin: 09/13/17 22:07 Dose: 650 mg Albuterol/Ipratropium (Duoneb 3 Mg/0.5 Mg (3 Ml) Ud) 3 ml INH RQID PRN PRN Reason: Shortness of Breath Last Admin: 09/14/17 14:36 Dose: 3 ml Anastrozole (Arimidex 1 Mg Tab) 1 mg PO DAILY [facility] Last Admin: 09/15/17 09:07 Dose: 1 mg Aspirin (Ecotrin) 81 mg PO DAILY [facility] Last Admin: 09/15/17 09:10 Dose: 81 mg Baclofen (Lioresal) 10 mg PO HS [facility] Last Admin: 09/15/17 21:07 Dose: 10 mg Ciprofloxacin (Cipro) 250 mg PO DAILY [facility] PRN Reason: Protocol Last Admin: 09/15/17 09:08 Dose: 250 mg Enoxaparin Sodium (Lovenox) 40 mg SC DAILY [facility] PRN Reason: Protocol Last Admin: 09/15/17 09:10 Dose: 40 mg Gabapentin (Neurontin) 600 mg PO TID [facility] Last Admin: 09/15/17 16:40 Dose: 600 mg Losartan Potassium (Cozaar) 25 mg PO DAILY [facility] Last Admin: 09/15/17 09:08 Dose: 25 mg Methimazole (Tapazole) 10 mg PO DAILY [facility] Last Admin: 09/15/17 09:11 Dose: 10 mg Methylprednisolone (Solu-Medrol) 40 mg IVP Q12 [facility] Stop: 09/16/17 10:00 Last Admin: 09/15/17 21:07 Dose: 40 mg Morphine Sulfate (Morphine Extended Release Tab) 15 mg PO DAILY [facility] Last Admin: 09/15/17 09:15 Dose: 15 mg Ondansetron HCl (Zofran Tab) 4 mg PO Q4 PRN PRN Reason: Nausea/Vomiting Last Admin: 09/15/17 16:46 Dose: 4 mg Oxycodone/Acetaminophen (Percocet 5/325 Mg Tab) 1 tab PO Q6H PRN PRN Reason: Pain 4-10 Pantoprazole Sodium (Protonix Ec Tab) 40 mg PO DAILY [facility] Last Admin: 09/15/17 09:10 Dose: 40 mg Prednisone (Prednisone Tab) 20 mg PO TID [facility] Roflumilast (Daliresp) 500 mcg PO DAILY [facility] Last Admin: 09/15/17 09:09 Dose: 500 mcg Fluticasone/Salmeterol (Advair Diskus 250/50) 1 puff INH BID [facility] Last Admin: 09/15/17 16:40 Dose: 1 puff Sertraline HCl (Zoloft) 50 mg PO HS [facility] Last Admin: 09/15/17 21:07 Dose: 50 mg Tiotropium [place] (Spiriva) 18 mcg IH DAILY [facility] Last Admin: 09/15/17 09:11 Dose: 18 mcg Zolpidem Tartrate (Ambien) 5 mg PO HS PRN PRN Reason: Insomnia Last Admin: 09/15/17 21:36 Dose: 5 mg - Labs Labs: 09/16/17 05:30 09/16/17 05:30 Assessment and Plan (1) Acute exacerbation of chronic obstructive pulmonary disease (COPD) Status: Acute (2) Hyperthyroidism Status: Chronic (3) Lymphedema of arm Status: Chronic (4) Cellulitis Status: Chronic
--- NOTE | 2017-09-16 11:11 | CP.PCM.DIS ---
Provider - Provider Date of Admission: 09/15/17 11:16 Attending physician: Fabricio Nieves DO Primary care physician: Dr. Benz Consults: pulmonary consult Time Spent in preparation of Discharge (in minutes): 15 Hospital Course - Lab Results Lab Results: Most Recent Lab Values WBC 10.6 K/uL (4.8-10.8) 09/16/17 05:30 RBC 4.40 Mil/uL (3.80-5.20) 09/16/17 05:30 Hgb 12.6 g/dL (12.0-16.0) 09/16/17 05:30 Hct 38.0 % (34.0-47.0) 09/16/17 05:30 MCV 86.4 fl (81.0-99.0) 09/16/17 05:30 MCH 28.7 pg (27.0-31.0) 09/16/17 05:30 MCHC 33.2 g/dL (33.0-37.0) 09/16/17 05:30 RDW 16.2 % (11.5-14.5) H 09/16/17 05:30 Plt Count 353 K/uL (130-400) 09/16/17 05:30 MPV 6.9 fl (7.2-11.7) L 09/13/17 06:40 Neut % (Auto) 80.6 % (50.0-75.0) H 09/13/17 06:40 Lymph % (Auto) 9.4 % (20.0-40.0) L 09/13/17 06:40 [place] % (Auto) 8.5 % (0.0-10.0) 09/13/17 06:40 Eos % (Auto) 0.9 % (0.0-4.0) 09/13/17 06:40 Baso % (Auto) 0.6 % (0.0-2.0) 09/13/17 06:40 Neut # (Auto) 8.5 K/uL (1.8-7.0) H 09/13/17 06:40 Lymph # (Auto) 1.0 K/uL (1.0-4.3) 09/13/17 06:40 [place] # (Auto) 0.9 K/uL (0.0-0.8) H 09/13/17 06:40 Eos # (Auto) 0.1 K/uL (0.0-0.7) 09/13/17 06:40 Baso # (Auto) 0.1 K/uL (0.0-0.2) 09/13/17 06:40 Neutrophils % (Manual) 78 % (42-75) H 09/13/17 06:40 Lymphocytes % (Manual) 10 % (20-50) L 09/13/17 06:40 Reactive Lymphs % 2 % (0-0) H 09/13/17 06:40 Monocytes % (Manual) 9 % (0-10) 09/13/17 06:40 Basophils % (Manual) 1 % (0-2) 09/13/17 06:40 Platelet Estimate Normal (NORMAL) 09/13/17 06:40 Anisocytosis (manual) Slight 09/13/17 06:40 Sodium 138 mmol/l (132-148) 09/16/17 05:30 Potassium 4.3 MMOL/L (3.6-5.0) 09/16/17 05:30 Chloride 96 mmol/L (98-107) L 09/16/17 05:30 Carbon Dioxide 32 mmol/L (22-30) H 09/16/17 05:30 Anion Gap 14 (10-20) 09/16/17 05:30 BUN 25 mg/dl (7-17) H 09/16/17 05:30 Creatinine 0.7 mg/dl (0.7-1.2) 09/16/17 05:30 Est GFR ( Amer) > 60 09/16/17 05:30 Est GFR (Non-Af Amer) > 60 09/16/17 05:30 POC Glucose (mg/dL) 82 mg/dL (65-110) 09/13/17 06:43 Random Glucose 102 mg/dL (65-105) 09/16/17 05:30 Calcium 8.6 mg/dL (8.4-10.2) 09/16/17 05:30 Total Bilirubin 1.0 mg/dl (0.2-1.3) 09/13/17 06:40 AST 31 U/L (14-36) 09/13/17 06:40 ALT 26 U/L (9-52) 09/13/17 06:40 Alkaline Phosphatase 82 U/L (38-126) 09/13/17 06:40 Troponin I 0.0340 ng/mL (0.00-0.120) 09/13/17 06:40 NT-Pro-B Natriuret Pep 2590 pg/ml (0-900) H 09/15/17 04:30 Total Protein 6.6 G/DL (6.3-8.2) 09/13/17 06:40 Albumin 3.4 g/dL (3.5-5.0) L 09/13/17 06:40 Globulin 3.2 gm/dL (2.2-3.9) 09/13/17 06:40 Albumin/Globulin Ratio 1.1 (1.0-2.1) 09/13/17 06:40 Thyroxine (T4) 5.01 ug/dl (5.5-11.0) L 09/15/17 04:30 Total T3 0.776 nmol/L (1.49-2.60) L 09/15/17 04:30 TSH 3rd Generation 0.58 mIU/ML (0.46-4.68) 09/15/17 04:30 - Hospital Course Hospital Course: 67 y/o F with known hx of COPD, CHF, Hyperthyroidism, Breast CA s/p Mastectomy , Chronic right arm Lymphedema came because worsening SOB and wheezing despite treatment with Duonebs, prednisone and O2 as outpatient. She was diagnosed with COPD exacerbation started on high doses Solumedrol IV, Duonebs RTC, Mucinex, O2 via NC and pulmonary consulted.Her Theophilline regiment was discontinued and started on Daliresp.She also complained of feeling more depressed lately so was started on Zoloft. Overnight developed some pruritus requiring benadryl . At present unclear the etiology of pruritus. patuient is on multiple medications. Given that Daliresp ands Zoloft were both just started with d/c Zoloft for now Her respiratory status has improved somehow since admission , with baseline SOB and non productive cough at rest Will d/c home on prfednisone Po 20 mg TID , being tappered slowly , Spiriva, Albuterol < daliresp and mucinex Will d.c patient home Follow up with PMD Dr. Benz in 3 days 1. Acute on chronic COPD exacerbation-- clinically showied improvement still with coughing spells, SOB and decreased air entry bibasilar CXR showed no infiltrate or active disease Continue Duonebs, O2 via NC, mucinex tappered solumedrol and d/c on Prednisone 20 mg Po TID tappering slowly Started on daliresp as per pulmonary and discontinued Theophilline due to high levels in blood pulmonary consult appreciated and case discussed with Dr. Benz cont Advair and Spiriva follow up with Dr. Benz 3 days after discharge 2.CHF (congestive heart failure), systolic and diastolic, chronic stable Chronic Systolic and Diastolic Heart Failure LAST ECHO 06/14/2016: Mild to moderate decreased LVEF 40-45%, RV moderately dilated, decreased RV function, Diastolic inflow pattern restrictive on Losartan given Lasix 40 mg IV x 1 dose 3.Hx Bilateral Mastectomy, breast CA with chronic lymphedema RUE and peripheral neuropathy Continue Arimidex 1 mg po Daily Continue Gabapentin 600 mg po q8h 4. RUE Lymphedema and recurrent Cellulitis on PO Cipro prophylactically for cellulitis cont to monitor 5.Hyperthyroidism on Tapazole 6. Chronic pain Percocet PRN 7. Depression Admits to feeling depressed , not suicidal Started low dose Zoloft bedtime but patient developed pruritus , Not clear about reason for pruritus. Will d/c Zoloft for now Discharge Exam - Head Exam Head Exam: ATRAUMATIC, NORMOCEPHALIC Additional comments: chronically ill - Eye Exam Eye Exam: EOMI, PERRL Pupil Exam: NORMAL ACCOMODATION - ENT Exam ENT Exam: Normal Exam - Neck Exam Neck exam: Normal Inspection - Respiratory Exam Respiratory Exam: Rales (bibasilar ), NORMAL BREATHING PATTERN. absent: Rhonchi , Wheezes - Cardiovascular Exam Cardiovascular Exam: REGULAR RHYTHM, RRR, +S1, +S2. absent: JVD - GI/Abdominal Exam GI & Abdominal Exam: Normal Bowel Sounds, Soft. absent: Distended, Guarding, Rebound, Tenderness - Rectal Exam Rectal Exam: Deferred - Extremities Exam Extremities exam: pedal pulses present Additional comments: right upper extremity lymphedema bilateral lower extremity diffuse scratches and echymosis ( as per patient cat scratched her and fell ) - Back Exam Back exam: NORMAL INSPECTION - Neurological Exam Neurological exam: Alert, CN II-XII Intact, Oriented x3, Reflexes Normal - Psychiatric Exam Psychiatric exam: Normal Affect - Skin Skin Exam: Dry, Pallor, Warm Discharge Plan - Discharge Medications Prescriptions: RX: Ciprofloxacin [Cipro] 250 mg PO DAILY #30 tab RX: Roflumilast [Daliresp] 500 mcg PO DAILY #30 tab RX: Sertraline [Zoloft] 50 mg PO HS #30 tab - Follow Up Plan Condition: IMPROVED Disposition: HOME/ ROUTINE Patient education suggested?: Yes Instructions: Exacerbation of COPD (DC) Additional Instructions: follow up with pmd in 3-4 days Referrals: Bala Benz MD [Staff Provider] -
[2017-09-16 12:02] VITALS: O2SAT 94
[2017-09-16 16:21] VITALS: BP 104/63; PULSE 91; TEMP 97.7
== END 2017-09-16 19:38 | disposition home health service (06) | DRG 191 ==
LOC: H.ER 06:02 → H.ERHOLD 09:52 → H.TEL 17:22 → OBSVTOIN 09-15 11:16
PROVIDERS: ADMIT Internal Medicine; ATTEND Internal Medicine
DX: J44.1 Chronic obstructive pulmonary disease with (acute) exacerbation (principal); I50.42 Chronic combined systolic (congestive) and diastolic (congestive) heart failure; J96.10 Chronic respiratory failure, unspecified whether with hypoxia or hypercapnia; L03.113 Cellulitis of right upper limb; E05.90 Thyrotoxicosis, unspecified without thyrotoxic crisis or storm; F41.9 Anxiety disorder, unspecified; G89.29 Other chronic pain; I11.0 Hypertensive heart disease with heart failure; G62.9 Polyneuropathy, unspecified; I89.0 Lymphedema, not elsewhere classified; Z85.3 Personal history of malignant neoplasm of breast; Z90.13 Acquired absence of bilateral breasts and nipples; F32.9 Major depressive disorder, single episode, unspecified; Z99.81 Dependence on supplemental oxygen; M81.0 Age-related osteoporosis without current pathological fracture; D63.8 Anemia in other chronic diseases classified elsewhere; Z87.891 Personal history of nicotine dependence; L29.9 Pruritus, unspecified; Z96.619 Presence of unspecified artificial shoulder joint; M19.90 Unspecified osteoarthritis, unspecified site

== ENCOUNTER 2017-11-10 14:59 | Inpatient (IN) | payer MEDICARE, BC ==
[2017-11-10 14:59] VITALS: BMI 26.5
[2017-11-10] MEDS ORDERED: Albuterol-Ipratrop 3 mg / 0.5 (3 ml) UD INH STA (15:23)
[2017-11-10] MEDS ORDERED: Albuterol-Ipratrop 3 mg / 0.5 (3 ml) UD IH STA ×2 (15:23→15:24)
[2017-11-10] MEDS ORDERED: Magnesium Sulfate 2 gm/50 ml 2 GM/50 ML BAG IVPB ONE (15:24)
[2017-11-10] MEDS ORDERED: Sodium Chloride 0.9% 500 ML IV STA (15:25)
[2017-11-10] MEDS ORDERED: Albuterol-Ipratrop 3 mg / 0.5 (3 ml) UD ONE ×3 (15:32→20:09)
[2017-11-10] MEDS ORDERED: Magnesium Sulfate 2 gm/50 ml 2 GM/50 ML BAG ONE (15:33)
--- NOTE | 2017-11-10 15:36 | ED PDOC ---
HPI: SOB/CHF/COPD Time Seen by Provider: 11/10/17 15:16 Chief Complaint (Nursing): Shortness Of Breath Chief Complaint (Provider): shortness of breath History Per: Patient History/Exam Limitations: no limitations Onset/Duration Of Symptoms: Days (x1), Worse Since (09:00 today) Quality: Tightness Associated Symptoms: denies: Fever, Chills, Chest Pain, Productive Cough Additional Complaint(s): Michelle Hanson is a 67 year old female, with a past medical history of COPD, CHF , and HTN, who was brought to the emergency department via EMS complaining of shortness of breath onset since yesterday but worsened today. Patient states symptom is associated with chest tightness and a headache. Patient has been compliant with her medications at home but with no relief. Patient reports symptoms feel similar to previous episodes of COPD exacerbation. EMS gave Solu- Medrol and x1 Duoneb on scene, patient arrived with CPAP in place. She denies any fever, chills, cough, congestion, nausea, vomit, diarrhea, abdominal pain, or dizziness. No further medical complaints. She has no history of blood clots and denies being on blood thinners. PMD: None provided. Past Medical History Reviewed: Historical Data, Nursing Documentation, Vital Signs Vital Signs: Last Vital Signs Temp 97.5 F L 11/10/17 18:21 Pulse 110 H 11/10/17 18:21 Resp 19 11/10/17 18:21 BP 124/86 11/10/17 19:13 Pulse Ox 98 11/10/17 19:02 - Medical History PMH: Anemia, Anxiety, Arthritis, Asthma, Bronchitis, Cardia Arrhythmia, CHF, COPD, Fractures, HTN, Hyperthyroidism (on methimazole), Hypothyroidism, Malignancy (breast CA), Osteoporosis, Pneumonia Denies: HIV, Chronic Kidney Disease Other PMH: breast cancer and chronic left arm due to lymphedema - Surgical History Surgical History: No Surg Hx - Family History Family History: States: Unknown Family Hx - Living Arrangements Living Arrangements: With Family - Social History Current smoker - smoking cessation education provided: No Alcohol: None Drugs: Denies - Home Medications Home Medications: Ambulatory Orders Medication Instructions Recorded Anastrozole [Arimidex 1 mg Tab] 1 mg PO DAILY #0 12/12/16 Omeprazole [Omeprazole] 40 mg PO DAILY #0 12/12/16 Tiotropium [Spiriva] 18 mcg IH DAILY 12/12/16 Albuterol Sulfate [Proair Hfa] 2 puff INH Q6 PRN 06/06/17 Fluticasone/Vilanterol [Breo 1 puff INH DAILY 06/06/17 Ellipta 200-25 Mcg INH] Oxycodone HCl/Acetaminophen 1 tab PO Q6 PRN 06/06/17 [Percocet 10-325 mg Tablet] methIMAzole [Tapazole] 10 mg PO DAILY 06/06/17 Roflumilast [Daliresp] 500 mcg PO DAILY #30 tab 09/16/17 Sertraline [Zoloft] 50 mg PO HS #30 tab 09/16/17 Albuterol 0.083% [Albuterol 0.083% 3 ml IH Q6 PRN 11/10/17 Inhal Aby (2.5 mg/3 ml) UD] Ciprofloxacin [Cipro] 500 mg PO Q12 11/10/17 Gabapentin [Neurontin] 600 mg PO Q8 11/10/17 Lidocaine 5% [Lidoderm] 1 patch TD DAILY PRN 11/10/17 Metoprolol Tartrate [Lopressor] 12.5 mg PO DAILY 11/10/17 guaiFENesin [Mucinex LA] 600 mg PO Q12 11/10/17 predniSONE [predniSONE Tab] 5 mg PO TID 11/10/17 - Allergies Allergies/Adverse Reactions: Allergies Allergy/AdvReac Type Severity Reaction Status Date / Time paper tape Allergy RASH Uncoded 11/10/17 15:04 Review of Systems ROS Statement: Except As Marked, All Systems Reviewed And Found Negative Constitutional: Negative for: Fever, Chills ENT: Negative for: Nose Congestion Cardiovascular: Positive for: Chest Pain Respiratory: Positive for: Shortness of Breath (w/ chest tightness). Negative for: Cough Gastrointestinal: Negative for: Nausea, Vomiting, Abdominal Pain, Diarrhea Neurological: Positive for: Headache (MILD). Negative for: Weakness, Numbness ( paresthesia), Dizziness Physical Exam - Reviewed Nursing Documentation Reviewed: Yes Vital Signs Reviewed: Yes - Physical Exam Appears: Positive for: Uncomfortable Head Exam: Positive for: ATRAUMATIC, NORMAL INSPECTION, NORMOCEPHALIC Skin: Positive for: Normal Color, Warm, Dry Eye Exam: Positive for: Normal appearance, EOMI, PERRL Neck: Positive for: Normal, Painless ROM, Supple Cardiovascular/Chest: Positive for: Tachycardia Respiratory: Positive for: Decreased Breath Sounds, Accessory Muscle Use (mild usage) Gastrointestinal/Abdominal: Positive for: Normal Exam, Soft. Negative for: Tenderness Back: Positive for: Normal Inspection. Negative for: L CVA Tenderness, R CVA Tenderness, Vertebral Tenderness Extremity: Positive for: Normal ROM (upper and lower extremities), Other (right arm lymphedema, nontender). Negative for: Deformity, Swelling (legs no growth pitting edema.) Neurologic/Psych: Positive for: Alert, Oriented (x3). Negative for: Motor/ Sensory Deficits, Aphasia, Facial Droop - Laboratory Results Result Diagrams: 11/10/17 16:07 11/10/17 16:02 Interpretation Of Abn Labs: probnp elevated - ECG ECG: Positive for: Interpreted By Me, Viewed By Me ECG Rhythm: Positive for: Sinus Tachycardia O2 Sat by Pulse Oximetry: 98 (oxygen) Pulse Ox Interpretation: Normal - Radiology X-Ray: Read By Radiologist X-Ray Interpretation: No Acute Disease - Progress ED Course And Treament: 1700: Improving. Speaking more comfortably. Continue bipap. HR improving. 1815: Stable. AAOx3. 1900: Will keep on bipap. Tylenol for mild headache. 1929: Spoke with Dr. Velez and Dr. Noel. Will admit for ICU. Stable. On bipap. Not sepsis. IS copd and chf exacerbation. - Critical Care Total Time (In Min): 30 Documented Critical Care: Time excludes all time spent performint seperately billable procedures Medical Decision Making Medical Decision Making: Time: 15:16 Initial Impression: COPD exacerbation Initial Plan: --ABG --EKG --B-Type Natriuretic Peptide --CMP --Magnesium --Phosphorus --Troponin I --CBC w/ differential --PTT --PT --Chest portable [RAD] --Duoneb 3 ml INH --Magnesium Sulfate 2 gm in 50 ml IVPB --Sodium Chloride 500 ml IV 100 mls/hr --Blood culture --Bipap procedure cont --Peak flow pre/post Tx --Reevaluation 16:27 CXR FINDINGS: LUNGS: No active pulmonary disease. PLEURA: No significant pleural effusion identified, no pneumothorax apparent. CARDIOVASCULAR: Normal. OSSEOUS STRUCTURES: Absent proximal right humerus. Periosteal reaction seen about distal right humeral diaphysis. Correlate with history. VISUALIZED UPPER ABDOMEN: Normal. OTHER FINDINGS: Left mastectomy. Left axillary surgical clips noted. IMPRESSION: No active disease. ----- Scribe Attestation: Documented by Jose Johnson, acting as a scribe for Moe Roman MD. Provider Scribe Attestation: All medical record entries made by the Scribe were at my direction and personally dictated by me. I have reviewed the chart and agree that the record accurately reflects my personal performance of the history, physical exam, medical decision making, and the department course for this patient. I have also personally directed, reviewed, and agree with the discharge instructions and disposition. Disposition - Clinical Impression Clinical Impression: CHF exacerbation, COPD exacerbation - Patient ED Disposition Is Patient to be Admitted: Yes Counseled Patient/Family Regarding: Studies Performed, Diagnosis - Disposition Disposition Time: 19:00 Condition: SERIOUS - Pt Status Changed To: Hospital Disposition Of: Inpatient - Admit Certification Admit to Inpatient:: After my assessment, the patient will require hospitalization for at least two midnights. This is because of the severity of symptoms shown, intensity of services needed, and/or the medical risk in this patient being treated as an outpatient. - POA Present On Arrival: None
[2017-11-10 15:52] LABS: ABG ALLEN TEST YES; ARTERIAL BLOOD GAS HCO3 29.1 mmol/L (21-28); ARTERIAL BLOOD GAS PCO2 49 mm/Hg (35-45); ARTERIAL BLOOD GAS PH 7.41 (7.35-7.45); ARTERIAL BLOOD GAS PO2 205 mm/Hg (80-100); ARTERIAL BLOOD GAS TCO2 32.6 mmol/L (22-28)
[2017-11-10 16:23] LABS: BASO # 0.1 K/uL (0.0-0.2); BASO % 0.8 % (0.0-2.0); EOS % 0.6 % (0.0-4.0); HEMOGLOBIN 13.4 g/dL (12.0-16.0); LYMPH % 11.9 % (20.0-40.0); MEAN CELL VOLUME 88.4 fl (81.0-99.0); MEAN CORPUSCULAR HEMOGLOBIN 28.2 pg (27.0-31.0); MEAN CORPUSCULAR HGB CONC 31.9 g/dL (33.0-37.0); MEAN PLATELET VOLUME 7.7 fl (7.2-11.7); MONO # 0.6 K/uL (0.0-0.8); MONO % 7.6 % (0.0-10.0); NEUT # 6.4 K/uL (1.8-7.0); NEUT % 79.1 % (50.0-75.0); RBC 4.73 Mil/uL (3.80-5.20); RED CELL DISTRIBUTION WIDTH 18.3 % (11.5-14.5); WHITE BLOOD COUNT 8.1 K/uL (4.8-10.8)
[2017-11-10 16:28] LABS: ALB/GLOB RATIO 1.1 (1.0-2.1); ALBUMIN 3.3 g/dL (3.5-5.0); ALT/SGPT 31 U/L (9-52); AST/SGOT 40 U/L (14-36); BLOOD UREA NITROGEN 11 mg/dl (7-17); CALCIUM 8.5 mg/dL (8.4-10.2); GFR NON-AFRICAN AMERICAN > 60
--- NOTE | 2017-11-10 16:29 | RAD ---
HISTORY: Sepsis Patient COMPARISON: No prior. FINDINGS: LUNGS: No active pulmonary disease. PLEURA: No significant pleural effusion identified, no pneumothorax apparent. CARDIOVASCULAR: Normal. OSSEOUS STRUCTURES: Absent proximal right humerus. Periosteal reaction seen about distal right humeral diaphysis. Correlate with history. VISUALIZED UPPER ABDOMEN: Normal. OTHER FINDINGS: Left mastectomy. Left axillary surgical clips noted. IMPRESSION: No active disease.
[2017-11-10 16:38] LABS: B-TYPE NATRIURETIC PEPTIDE 2150 pg/ml (0-900)
[2017-11-10 17:50] LABS: PARTIAL THROMBOPLASTIN TIME 20.7 Seconds (25.6-37.1); PROTHROMBIN TIME 11.1 Seconds (9.8-13.1)
[2017-11-10] MEDS ORDERED: Albuterol-Ipratrop 3 mg / 0.5 (3 ml) UD INH PRN (19:53)
[2017-11-10] MEDS ORDERED: Potassium Chloride 20 mEq ER Tab PO ONE ×2 (19:54→20:09)
[2017-11-10] MEDS: Albuterol-Ipratrop 3 mg / 0.5 (3 ml) UD INH SCH (20:22)
--- NOTE | 2017-11-10 20:23 | CP.PCM.HP ---
History of Present Illness - History of Present Illness History of Present Illness: CC: Worsening SOB/[place] PI: This is a 67 y/o female with COPD, sys/leigh CHF, and multiple other co- morbidities who comes to the ER today with about 1 day of worsening SOB and [place]. States that there has been some ankle swelling as well. Denies increased productive cough/sputum, denies f/c/n/v/d. Denies CP. Feels better since bipap was started. Has had multiple admissions in the past year for similar issues. ROS: 14 systems reviewed, negative other than HPI MHx: Chronic Respiratory Failure , CHF (systolic+diastolic), COPD, bilateral metastatic breast CA to shoulder s/p chemo-XRT 8 years ago (s/p humerus resection) with chronic lymphedema RUE, HTN, hyperthyroidism, anemia of chronic disease, SVT, osteoporosis, R cephalic vein thrombosis, peripheral neuropathy, anxiety SHx: bilateral mastectomies R 1998/2008, total shoulder replacement (2003) + removal (2013), cervical and lumbar fusions 2007, cholecystectomy, tubal ligation, groin cyst removal; trach placed 07/2016, removed 11/04/16 Allergies: NKDA; allergy to paper tape Medications: Per med rec Family Hx: Family history of cancer including ovarian, colon, breast, pancreatic and lung cancer Social Hx: Lives with child and grandchildren, quit smoking 1.5 years ago, no current EtOH Surrogate Decision Maker: per chart Present on Admission - Present on Admission Any Indicators Present on Admission: No Past Patient History - Infectious Disease Hx of Infectious Diseases: None - Tetanus Immunizations Tetanus Immunization: Unknown - Past Medical History & Family History Past Medical History?: Yes - Past Social History Alcohol: None Drugs: Denies - CARDIAC Hx Cardia Arrhythmia: Yes Hx Congestive Heart Failure: Yes Hx Hypertension: Yes - PULMONARY Hx Asthma: Yes Hx Bronchitis: Yes Hx Chronic Obstructive Pulmonary Disease (COPD): Yes Hx Pneumonia: Yes - NEUROLOGICAL Hx Neurological Disorder: Yes Other/Comment: Peripheral neuropathy right lower extremity. 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 - RENAL Hx Chronic Kidney Disease: No - ENDOCRINE/METABOLIC Hx Hyperthyroidism: Yes (on methimazole) Hx Hypothyroidism: Yes - HEMATOLOGICAL/ONCOLOGICAL Hx Anemia: Yes Hx Human Immunodeficiency Virus (HIV): No - INTEGUMENTARY Hx Cellulitis: Yes (RUE) - MUSCULOSKELETAL/RHEUMATOLOGICAL Hx Arthritis: Yes Hx Fractures: Yes Hx Osteoporosis: Yes - GASTROINTESTINAL Hx Gall Bladder Disease: Yes - GENITOURINARY/GYNECOLOGICAL Hx Genitourinary Disorders: No - PSYCHIATRIC Hx Anxiety: Yes - SURGICAL HISTORY Hx Surgeries: Yes Hx Mastectomy: Yes (right in 1998; left in 2008) Hx Orthopedic Surgery: Yes (2003 rigtht shoulder prosthesis, removal of hardware 2013) Hx Tubal Ligation: Yes Other/Comment: shoulder and humerous replacement with joint space infection and eventual removal of hardware in right shoulder and chronic lymphedema of RUE, groin cyst removal, cervical spinal fusion 2007, lumbar spinal fusion 2007. - ANESTHESIA Hx Anesthesia: Yes Hx Anesthesia Reactions: No Hx Malignant Hyperthermia: No Meds Allergies/Adverse Reactions: Allergies Allergy/AdvReac Type Severity Reaction Status Date / Time paper tape Allergy RASH Uncoded 11/10/17 15:04 Physical Exam - Constitutional Appears: Chronically Ill Additional comments: On bipap, appears to have some resp distress still - Head Exam Head Exam: ATRAUMATIC, NORMOCEPHALIC - Eye Exam Eye Exam: EOMI, PERRL - ENT Exam ENT Exam: Mucous Membranes Moist - Respiratory Exam Respiratory Exam: Accessory Muscle Use, Rales, Rhonchi - Cardiovascular Exam Cardiovascular Exam: REGULAR RHYTHM, +S1, +S2 - GI/Abdominal Exam GI & Abdominal Exam: Normal Bowel Sounds, Soft - Extremities Exam Extremities exam: Positive for: full ROM Additional comments: trace b/l LE edema - Neurological Exam Neurological exam: Alert, CN II-XII Intact, Oriented x3 - Psychiatric Exam Psychiatric exam: Normal Affect, Normal Mood - Skin Skin Exam: Dry, Warm Results - Vital Signs Recent Vital Signs: Last Vital Signs Temp 97.5 F L 11/10/17 18:21 Pulse 110 H 11/10/17 20:15 Resp 19 11/10/17 18:21 BP 124/86 11/10/17 19:13 Pulse Ox 98 11/10/17 19:40 - Labs Result Diagrams: 11/10/17 16:07 11/10/17 16:02 Labs: Laboratory Results - last 24 hr 11/10/17 11/10/17 11/10/17 15:38 16:02 16:07 WBC 8.1 RBC 4.73 Hgb 13.4 Hct 41.9 MCV 88.4 D MCH 28.2 MCHC 31.9 L RDW 18.3 H Plt Count 222 D MPV 7.7 Neut % (Auto) 79.1 H Lymph % (Auto) 11.9 L [place] % (Auto) 7.6 Eos % (Auto) 0.6 Baso % (Auto) 0.8 Neut # (Auto) 6.4 Lymph # (Auto) 1.0 [place] # (Auto) 0.6 Eos # (Auto) 0.0 Baso # (Auto) 0.1 PT INR APTT pCO2 49 H pO2 205 H HCO3 29.1 H ABG pH 7.41 ABG Total CO2 32.6 H ABG O2 Saturation 100.0 H ABG Base Excess 5.3 H Tawanda Test Yes ABG Potassium 3.0 L A-a O2 Difference 19.0 Sodium 138.0 140 Chloride 105.0 104 Glucose 91 Lactate 0.8 Vent Mode Bipap FiO2 40.0 Inspiratory BiPAP 10 Expiratory BiPAP 5 Potassium 3.4 L Carbon Dioxide 27 Anion Gap 12 BUN 11 Creatinine 0.6 L Est GFR ( Amer) > 60 Est GFR (Non-Af Amer) > 60 Random Glucose 87 Calcium 8.5 Phosphorus 3.0 Magnesium 2.0 Total Bilirubin 0.5 AST 40 H D ALT 31 Alkaline Phosphatase 77 Troponin I 0.0530 NT-Pro-B Natriuret Pep 2150 H Total Protein 6.4 Albumin 3.3 L Globulin 3.1 Albumin/Globulin Ratio 1.1 Arterial Blood Potassium 3.0 L 11/10/17 17:32 WBC RBC Hgb Hct MCV MCH MCHC RDW Plt Count MPV Neut % (Auto) Lymph % (Auto) [place] % (Auto) Eos % (Auto) Baso % (Auto) Neut # (Auto) Lymph # (Auto) [place] # (Auto) Eos # (Auto) Baso # (Auto) PT 11.1 INR 1.0 APTT 20.7 L pCO2 pO2 HCO3 ABG pH ABG Total CO2 ABG O2 Saturation ABG Base Excess T[place]anda Test ABG Potassium A-a O2 Difference Sodium Chloride Glucose Lactate Vent Mode FiO2 Inspiratory BiPAP Expiratory BiPAP Potassium Carbon Dioxide Anion Gap BUN Creatinine Est GFR ( Amer) Est GFR (Non-Af Amer) Random Glucose Calcium Phosphorus Magnesium Total Bilirubin AST ALT Alkaline Phosphatase Troponin I NT-Pro-B Natriuret Pep Total Protein Albumin Globulin Albumin/Globulin Ratio Arterial Blood Potassium Assessment & Plan (1) Acute exacerbation of CHF (congestive heart failure) Assessment and Plan: Assessment and Plan: 67 y/o female with multiple chronic conditions presents again with resp failure in setting of COPD. 1) Acute exacerbation of chronic systolic and diastolic CHF -Admit ICU -Check troponins -ABG in AM -Lasix 40 mg IV q12h -Cont Bipap 2) COPD -- appears to not be the main issue this visit -Continue Duonebs -Cont other home COPD medications -Will not start on increased steroids or abx at this time, as this appears to not be a COPD exac 3) Hyperthyroid -- continue home medications 4) HTN -- stable, continue home medications 5) DVT PPx -- SCDs for now Status: Acute (2) COPD (chronic obstructive pulmonary disease) Status: Acute (3) DVT prophylaxis Status: Acute Priority: Medium (4) HTN (hypertension) Status: Chronic Priority: Medium
[2017-11-10] MEDS: guaiFENesin 600 mg ER Tab PO SCH (22:59)
[2017-11-10] MEDS: Oxycodone/Acetaminophen 5/325 mg Tab PO PRN (23:00)
[2017-11-11 06:03] LABS: HEMOGLOBIN 13.4 g/dL (12.0-16.0); MEAN CELL VOLUME 88.4 fl (81.0-99.0); MEAN CORPUSCULAR HEMOGLOBIN 28.2 pg (27.0-31.0); MEAN CORPUSCULAR HGB CONC 31.9 g/dL (33.0-37.0); RBC 4.73 Mil/uL (3.80-5.20); RED CELL DISTRIBUTION WIDTH 18.9 % (11.5-14.5); WHITE BLOOD COUNT 5.4 K/uL (4.8-10.8)
[2017-11-11 06:05] LABS: BLOOD UREA NITROGEN 15 mg/dl (7-17); GFR NON-AFRICAN AMERICAN > 60
[2017-11-11] MEDS: Albuterol-Ipratrop 3 mg / 0.5 (3 ml) UD INH SCH ×4 (07:59→19:05)
--- NOTE | 2017-11-11 08:16 | CP.PCM.CON ---
Past Patient History - Infectious Disease Hx of Infectious Diseases: None - Tetanus Immunizations Tetanus Immunization: Unknown - Past Medical History & Family History Past Medical History?: Yes - Past Social History Smoking Status: Former Smoker - CARDIAC Hx Cardiac Disorders: Yes - PULMONARY Hx Asthma: Yes Hx Bronchitis: Yes Hx Chronic Obstructive Pulmonary Disease (COPD): Yes Hx Pneumonia: Yes - NEUROLOGICAL Hx Neurological Disorder: Yes - HEENT Hx HEENT Problems: Yes - RENAL Hx Chronic Kidney Disease: No - ENDOCRINE/METABOLIC Hx Hyperthyroidism: Yes (on methimazole) Hx Hypothyroidism: Yes - HEMATOLOGICAL/ONCOLOGICAL Hx Anemia: Yes Hx Human Immunodeficiency Virus (HIV): No - INTEGUMENTARY Hx Cellulitis: Yes (RUE) - MUSCULOSKELETAL/RHEUMATOLOGICAL Hx Arthritis: Yes Hx Falls: No Hx Fractures: Yes Hx Osteoporosis: Yes - GASTROINTESTINAL Hx Gall Bladder Disease: Yes - GENITOURINARY/GYNECOLOGICAL Hx Genitourinary Disorders: No - PSYCHIATRIC Hx Anxiety: Yes Hx Substance Use: No - SURGICAL HISTORY Hx Surgeries: Yes Hx Mastectomy: Yes (right in 1998; left in 2008) Hx Orthopedic Surgery: Yes (2003 rigtht shoulder prosthesis, removal of hardware 2013) Hx Tubal Ligation: Yes Other/Comment: shoulder and humerous replacement with joint space infection and eventual removal of hardware in right shoulder and chronic lymphedema of RUE, groin cyst removal, cervical spinal fusion 2007, lumbar spinal fusion 2007. - ANESTHESIA Hx Anesthesia: Yes Hx Anesthesia Reactions: No Hx Malignant Hyperthermia: No Meds Allergies/Adverse Reactions: Allergies Allergy/AdvReac Type Severity Reaction Status Date / Time paper tape Allergy RASH Uncoded 11/10/17 15:04 - Medications Medications: Current Medications Acetaminophen (Tylenol 325mg Tab) 650 mg PO Q6 PRN PRN Reason: Pain, Mild (1-3)/headache Albuterol/Ipratropium (Duoneb 3 Mg/0.5 Mg (3 Ml) Ud) 3 ml INH RQ6 PRN PRN Reason: Shortness of Breath Albuterol/Ipratropium (Duoneb 3 Mg/0.5 Mg (3 Ml) Ud) 3 ml INH RQID [facility] Last Admin: 11/11/17 07:59 Dose: 3 ml Anastrozole (Arimidex 1 Mg Tab) 1 mg PO DAILY [facility] Enoxaparin Sodium (Lovenox) 40 mg SC DAILY [facility] PRN Reason: Protocol Furosemide (Lasix) 40 mg IVP BID [facility] Gabapentin (Neurontin) 600 mg PO Q8 [facility] Last Admin: 11/11/17 00:59 Dose: 600 mg Guaifenesin (Mucinex La) 600 mg PO Q12 [facility] Last Admin: 11/10/17 22:59 Dose: 600 mg Lidocaine (Lidoderm) 1 ea TD DAILY PRN PRN Reason: Pain, moderate (4-7) Methimazole (Tapazole) 10 mg PO DAILY [facility] Metoprolol Tartrate (Lopressor) 12.5 mg PO DAILY [facility] Oxycodone/Acetaminophen (Percocet 5/325 Mg Tab) 2 tab PO Q6 PRN PRN Reason: Pain, severe (8-10) Last Admin: 11/10/17 23:00 Dose: 2 tab Pantoprazole Sodium (Protonix Ec Tab) 40 mg PO DAILY [facility] Prednisone (Prednisone Tab) 5 mg PO TID [facility] Roflumilast (Daliresp) 500 mcg PO DAILY [facility] Fluticasone/Salmeterol (Advair Diskus 250/50) 1 puff INH Q12 [facility] Sertraline HCl (Zoloft) 50 mg PO HS [facility] Last Admin: 11/10/17 22:59 Dose: 50 mg Physical Exam - Constitutional Appears: Non-toxic, No Acute Distress - Head Exam Head Exam: ATRAUMATIC, NORMAL INSPECTION, NORMOCEPHALIC - Eye Exam Eye Exam: Normal appearance - Neck Exam Neck exam: Positive for: Normal Inspection Results - Vital Signs Recent Vital Signs: Last Vital Signs Temp 97.7 F 11/11/17 04:00 Pulse 87 11/11/17 07:59 Resp 15 11/11/17 06:00 BP 92/57 L 11/11/17 06:00 Pulse Ox 98 11/11/17 06:00 - Labs Result Diagrams: 11/11/17 05:00 11/11/17 05:00 Labs: Laboratory Results - last 24 hr 11/10/17 11/10/17 11/10/17 15:38 16:02 16:07 WBC 8.1 RBC 4.73 Hgb 13.4 Hct 41.9 MCV 88.4 D MCH 28.2 MCHC 31.9 L RDW 18.3 H Plt Count 222 D MPV 7.7 Neut % (Auto) 79.1 H Lymph % (Auto) 11.9 L [place] % (Auto) 7.6 Eos % (Auto) 0.6 Baso % (Auto) 0.8 Neut # (Auto) 6.4 Lymph # (Auto) 1.0 [place] # (Auto) 0.6 Eos # (Auto) 0.0 Baso # (Auto) 0.1 PT INR APTT pCO2 49 H pO2 205 H HCO3 29.1 H ABG pH 7.41 ABG Total CO2 32.6 H ABG O2 Saturation 100.0 H ABG Base Excess 5.3 H [place]anda Test Yes ABG Potassium 3.0 L A-a O2 Difference 19.0 Sodium 138.0 140 Chloride 105.0 104 Glucose 91 Lactate 0.8 Vent Mode Bipap FiO2 40.0 Inspiratory BiPAP 10 Expiratory BiPAP 5 Potassium 3.4 L Carbon Dioxide 27 Anion Gap 12 BUN 11 Creatinine 0.6 L Est GFR ( Amer) > 60 Est GFR (Non-Af Amer) > 60 Random Glucose 87 Calcium 8.5 Phosphorus 3.0 Magnesium 2.0 Total Bilirubin 0.5 AST 40 H D ALT 31 Alkaline Phosphatase 77 Troponin I 0.0530 NT-Pro-B Natriuret Pep 2150 H Total Protein 6.4 Albumin 3.3 L Globulin 3.1 Albumin/Globulin Ratio 1.1 Arterial Blood Potassium 3.0 L 11/10/17 11/11/17 11/11/17 17:32 05:00 05:00 WBC 5.4 RBC 4.73 Hgb 13.4 Hct 41.8 MCV 88.4 MCH 28.2 MCHC 31.9 L RDW 18.9 H Plt Count 238 MPV Neut % (Auto) Lymph % (Auto) [place] % (Auto) Eos % (Auto) Baso % (Auto) Neut # (Auto) Lymph # (Auto) [place] # (Auto) Eos # (Auto) Baso # (Auto) PT 11.1 INR 1.0 APTT 20.7 L pCO2 pO2 HCO3 ABG pH ABG Total CO2 ABG O2 Saturation ABG Base Excess Tawanda Test ABG Potassium A-a O2 Difference Sodium 141 Chloride 103 Glucose Lactate Vent Mode FiO2 Inspiratory BiPAP Expiratory BiPAP Potassium 4.9 Carbon Dioxide 31 H Anion Gap 12 BUN 15 Creatinine 0.6 L Est GFR ( Amer) > 60 Est GFR (Non-Af Amer) > 60 Random Glucose 137 H Calcium 8.0 L Phosphorus Magnesium Total Bilirubin AST ALT Alkaline Phosphatase Troponin I NT-Pro-B Natriuret Pep Total Protein Albumin Globulin Albumin/Globulin Ratio Arterial Blood Potassium
--- NOTE | 2017-11-11 08:18 | CP.PCM.CON ---
History of Present Illness - History of Present Illness History of Present Illness: 67 yo female with history of COPD, systolic-diastolic CHF known to Dr. Benz presented yesterday with 1 day of worsening SOB and dypsnea on exertion. She reports that she has been feeling slightly short of breath starting Tuesday but yesterday she just could not catch her breath and so she was brought to the ER. She states that she tried taking Robitussin with no relief of symptoms. Patient was seen and examined at bedside with Dr. Benz. Patient reports being able to breathe better on the Bipap but still reports chest tightness being present. She reports a constant chest tightness and ankle swelling but denies pain, fever, chills, nausea, vomiting, or increased amount of sputum production. Medical history: Chronic respiratory failure, bilateral breast cancer with mets to the right shoulder, s/p chemo-XRT 8 years ago with right arm lymphedema, Hyperthyroidism, anemia of chronic disease, osteoporosis, hypertension, R cephalic vein thrombosis, peripheral neuropathy, anxiety. Surgical history: bilateral mastectomies R 1998/ L2; total R shoulder replacement (2003) and removal (2013), Trach was placed 07/2016 and removed 2016. Review of Systems - Constitutional Constitutional: Headache. absent: Chills, Fever, Increased Appetite - EENT Eyes: absent: Blurred Vision, Change in Vision, Pain Ears: absent: Decreased Hearing, Ear Discharge, Ear Pain Nose/Mouth/Throat: absent: Post Nasal Drip, Sinus Pain, Sinus Pressure, Dysphagia - Cardiovascular Cardiovascular: Chest Pain (chest tightness), Dyspnea on Exertion, Edema ( chronic right arm lymphedema), Leg Edema (chronic bilateral leg edema). absent : Chest Pain with Activity, Irregular Heart Rhythm, Lightheadedness, Palpitations - Respiratory Respiratory: Dyspnea, Dyspnea on Exertion. absent: Cough, Wheezing, Pain on Inspiration, Excessive Mucous Production, Change in Mucous Color, Pain with Coughing - Gastrointestinal Gastrointestinal: absent: Abdominal Pain, Bloating, Cramping, Diarrhea - Genitourinary Genitourinary: absent: Change in Urinary Stream, Dysuria, Nocturia - Musculoskeletal Musculoskeletal: Tingling (chronic right facial tingling s/p removal of manibular abscess) - Integumentary Integumentary: absent: Change in Hair, Change in Nails, Dry Skin - Neurological Neurological: absent: Abnormal Hearing, Abnormal Movements, Confusion - Psychiatric Psychiatric: Abnormal Sleep Pattern (unable to sleep), Anxiety. absent: Homicidal Ideation, Suicidal Ideation - Endocrine Endocrine: absent: Change in Body Appearance, Excessive Sweating, Heat Intolorance - Hematologic/Lymphatic Hematologic: Easy Bruising Past Patient History - Infectious Disease Hx of Infectious Diseases: None - Tetanus Immunizations Tetanus Immunization: Unknown - Past Medical History & Family History Past Medical History?: Yes - Past Social History Smoking Status: Former Smoker - CARDIAC Hx Cardiac Disorders: Yes - PULMONARY Hx Asthma: Yes Hx Bronchitis: Yes Hx Chronic Obstructive Pulmonary Disease (COPD): Yes Hx Pneumonia: Yes - NEUROLOGICAL Hx Neurological Disorder: Yes - HEENT Hx HEENT Problems: Yes - RENAL Hx Chronic Kidney Disease: No - ENDOCRINE/METABOLIC Hx Hyperthyroidism: Yes (on methimazole) Hx Hypothyroidism: Yes - HEMATOLOGICAL/ONCOLOGICAL Hx Anemia: Yes Hx Human Immunodeficiency Virus (HIV): No - INTEGUMENTARY Hx Cellulitis: Yes (RUE) - MUSCULOSKELETAL/RHEUMATOLOGICAL Hx Arthritis: Yes Hx Falls: No Hx Fractures: Yes Hx Osteoporosis: Yes - GASTROINTESTINAL Hx Gall Bladder Disease: Yes - GENITOURINARY/GYNECOLOGICAL Hx Genitourinary Disorders: No - PSYCHIATRIC Hx Anxiety: Yes Hx Substance Use: No - SURGICAL HISTORY Hx Surgeries: Yes Hx Mastectomy: Yes (right in 1998; left in 2008) Hx Orthopedic Surgery: Yes (2003 rigtht shoulder prosthesis, removal of hardware 2013) Hx Tubal Ligation: Yes Other/Comment: shoulder and humerous replacement with joint space infection and eventual removal of hardware in right shoulder and chronic lymphedema of RUE, groin cyst removal, cervical spinal fusion 2007, lumbar spinal fusion 2007. - ANESTHESIA Hx Anesthesia: Yes Hx Anesthesia Reactions: No Hx Malignant Hyperthermia: No Meds Allergies/Adverse Reactions: Allergies Allergy/AdvReac Type Severity Reaction Status Date / Time paper tape Allergy RASH Uncoded 11/10/17 15:04 - Medications Medications: Current Medications Acetaminophen (Tylenol 325mg Tab) 650 mg PO Q6 PRN PRN Reason: Pain, Mild (1-3)/headache Albuterol/Ipratropium (Duoneb 3 Mg/0.5 Mg (3 Ml) Ud) 3 ml INH RQ6 PRN PRN Reason: Shortness of Breath Albuterol/Ipratropium (Duoneb 3 Mg/0.5 Mg (3 Ml) Ud) 3 ml INH RQID [facility] Last Admin: 11/11/17 07:59 Dose: 3 ml Anastrozole (Arimidex 1 Mg Tab) 1 mg PO DAILY [facility] Enoxaparin Sodium (Lovenox) 40 mg SC DAILY [facility] PRN Reason: Protocol Furosemide (Lasix) 40 mg IVP BID [facility] Gabapentin (Neurontin) 600 mg PO Q8 [facility] Last Admin: 11/11/17 00:59 Dose: 600 mg Guaifenesin (Mucinex La) 600 mg PO Q12 [facility] Last Admin: 11/10/17 22:59 Dose: 600 mg Lidocaine (Lidoderm) 1 ea TD DAILY PRN PRN Reason: Pain, moderate (4-7) Methimazole (Tapazole) 10 mg PO DAILY [facility] Metoprolol Tartrate (Lopressor) 12.5 mg PO DAILY [facility] Oxycodone/Acetaminophen (Percocet 5/325 Mg Tab) 2 tab PO Q6 PRN PRN Reason: Pain, severe (8-10) Last Admin: 11/10/17 23:00 Dose: 2 tab Pantoprazole Sodium (Protonix Ec Tab) 40 mg PO DAILY [facility] Prednisone (Prednisone Tab) 5 mg PO TID [facility] Roflumilast (Daliresp) 500 mcg PO DAILY [facility] Fluticasone/Salmeterol (Advair Diskus 250/50) 1 puff INH Q12 [facility] Sertraline HCl (Zoloft) 50 mg PO HS [facility] Last Admin: 11/10/17 22:59 Dose: 50 mg Physical Exam - Constitutional Appears: Non-toxic, No Acute Distress - Head Exam Head Exam: ATRAUMATIC, NORMAL INSPECTION, NORMOCEPHALIC - Eye Exam Eye Exam: Normal appearance - ENT Exam ENT Exam: Mucous Membranes Moist - Neck Exam Neck exam: Positive for: Normal Inspection Additional comments: Midline scar present from previous Tracheostomy (07/2016) - Respiratory Exam Respiratory Exam: Decreased Breath Sounds, Clear to Auscultation Bilateral ( Distant air entry bilaterally). absent: Rales, Rhonchi, Wheezes Additional comments: Dullness to percussion negative egophony - Cardiovascular Exam Cardiovascular Exam: REGULAR RHYTHM (decreased heart sounds) - GI/Abdominal Exam GI & Abdominal Exam: Normal Bowel Sounds, Soft. absent: Guarding, Rebound, Tenderness - Extremities Exam Extremities exam: Positive for: pedal edema Additional comments: chronic Right upper extremity lymphedema Chronic Bilateral leg edema with bruising present. + 2 dorsalis pedis pulse bilaterally. - Neurological Exam Neurological exam: Alert, Oriented x3 - Psychiatric Exam Psychiatric exam: Normal Affect, Normal Mood Additional comments: patient reports decrease sleep. - Skin Skin Exam: Normal Color, Petechiae (present on bilateral lower extremity ( chronic changes)) Results - Vital Signs Recent Vital Signs: Last Vital Signs Temp 97.7 F 11/11/17 04:00 Pulse 87 11/11/17 07:59 Resp 15 11/11/17 06:00 BP 92/57 L 11/11/17 06:00 Pulse Ox 98 11/11/17 06:00 - Labs Result Diagrams: 11/11/17 05:00 11/11/17 05:00 Labs: Laboratory Results - last 24 hr 11/10/17 11/10/17 11/10/17 15:38 16:02 16:07 WBC 8.1 RBC 4.73 Hgb 13.4 Hct 41.9 MCV 88.4 D MCH 28.2 MCHC 31.9 L RDW 18.3 H Plt Count 222 D MPV 7.7 Neut % (Auto) 79.1 H Lymph % (Auto) 11.9 L [place] % (Auto) 7.6 Eos % (Auto) 0.6 Baso % (Auto) 0.8 Neut # (Auto) 6.4 Lymph # (Auto) 1.0 [place] # (Auto) 0.6 Eos # (Auto) 0.0 Baso # (Auto) 0.1 PT INR APTT pCO2 49 H pO2 205 H HCO3 29.1 H ABG pH 7.41 ABG Total CO2 32.6 H ABG O2 Saturation 100.0 H ABG Base Excess 5.3 H Tawanda Test Yes ABG Potassium 3.0 L A-a O2 Difference 19.0 Sodium 138.0 140 Chloride 105.0 104 Glucose 91 Lactate 0.8 Vent Mode Bipap FiO2 40.0 Inspiratory BiPAP 10 Expiratory BiPAP 5 Potassium 3.4 L Carbon Dioxide 27 Anion Gap 12 BUN 11 Creatinine 0.6 L Est GFR ( Amer) > 60 Est GFR (Non-Af Amer) > 60 Random Glucose 87 Calcium 8.5 Phosphorus 3.0 Magnesium 2.0 Total Bilirubin 0.5 AST 40 H D ALT 31 Alkaline Phosphatase 77 Troponin I 0.0530 NT-Pro-B Natriuret Pep 2150 H Total Protein 6.4 Albumin 3.3 L Globulin 3.1 Albumin/Globulin Ratio 1.1 Arterial Blood Potassium 3.0 L 11/10/17 11/11/17 11/11/17 17:32 05:00 05:00 WBC 5.4 RBC 4.73 Hgb 13.4 Hct 41.8 MCV 88.4 MCH 28.2 MCHC 31.9 L RDW 18.9 H Plt Count 238 MPV Neut % (Auto) Lymph % (Auto) [place] % (Auto) Eos % (Auto) Baso % (Auto) Neut # (Auto) Lymph # (Auto) [place] # (Auto) Eos # (Auto) Baso # (Auto) PT 11.1 INR 1.0 APTT 20.7 L pCO2 pO2 HCO3 ABG pH ABG Total CO2 ABG O2 Saturation ABG Base Excess Tawanda Test ABG Potassium A-a O2 Difference Sodium 141 Chloride 103 Glucose Lactate Vent Mode FiO2 Inspiratory BiPAP Expiratory BiPAP Potassium 4.9 Carbon Dioxide 31 H Anion Gap 12 BUN 15 Creatinine 0.6 L Est GFR ( Amer) > 60 Est GFR (Non-Af Amer) > 60 Random Glucose 137 H Calcium 8.0 L Phosphorus Magnesium Total Bilirubin AST ALT Alkaline Phosphatase Troponin I NT-Pro-B Natriuret Pep Total Protein Albumin Globulin Albumin/Globulin Ratio Arterial Blood Potassium Assessment & Plan (1) Acute exacerbation of chronic obstructive pulmonary disease (COPD) Assessment and Plan: Begin Duoneb QID , Albuterol q4h prn, High flow nasal cannula 30L at 30% , Hydrocortisone IV 50mg q12h, Augmentin 1 tab q12h, Roflumilast Status: Acute Priority: High (2) HTN (hypertension) Assessment and Plan: Continue current regimen Status: Chronic Priority: Medium (3) Hyperthyroidism Assessment and Plan: Continue current regimen: Methimazole Status: Chronic Priority: Medium (4) Chronic CHF (congestive heart failure) Assessment and Plan: Continue current regimen: Furosemide Status: Inactive Priority: Medium
[2017-11-11] MEDS: Enoxaparin 40 mg Syringe SC SCH (08:22)
[2017-11-11] MEDS: guaiFENesin 600 mg ER Tab PO SCH ×2 (08:23→20:37)
[2017-11-11] MEDS: Pantoprazole 40 mg EC Tab PO SCH (08:25)
[2017-11-11] MEDS ORDERED: Fluticasone-Salmeterol 250-50mcg Diskus INH SCH (09:00)
[2017-11-11] MEDS ORDERED: Hydrocortisone- 50 MG in Sodium Chloride 0.9% 100 ML IV SCH ×2 (10:00→21:00)
--- NOTE | 2017-11-11 12:03 | CP.PCM.PN ---
Subjective - Date & Time of Evaluation Date of Evaluation: 11/11/17 Time of Evaluation: 11:30 - Subjective Subjective: No fever Was on Bipap overnight- now changed to High Flow Oxygen 30 liter /30% FiO2 SOB better denies CP no abd pain Code Status: DNR ( no chest compressions), ok to intubate only if reversible however no prolonged intubation/Mech Vent Surrogate Decision maker : daughter Kacy Objective - Vital Signs/Intake and Output Vital Signs (last 24 hours): Temp Pulse Resp BP Pulse Ox 97.7 F 79 16 103/68 99 11/11/17 08:00 11/11/17 08:21 11/11/17 10:10 11/11/17 08:21 11/11/17 08:00 Intake and Output: 11/11/17 11/11/17 06:59 18:59 Intake Total 240 Output Total 750 Balance -510 - Medications Medications: Current Medications Acetaminophen (Tylenol 325mg Tab) 650 mg PO Q6 PRN PRN Reason: Pain, Mild (1-3)/headache Albuterol Sulfate (Albuterol 0.083% Inhal Aby (2.5 Mg/3 Ml) Ud) 2.5 mg INH RQ4 PRN PRN Reason: Shortness of Breath Albuterol/Ipratropium (Duoneb 3 Mg/0.5 Mg (3 Ml) Ud) 3 ml INH RQID [facility] Last Admin: 11/11/17 11:28 Dose: 3 ml Amoxicillin/Clavulanate Potassium (Augmentin 875 Mg-125 Mg Tab) 1 tab PO Q12 [facility] PRN Reason: Protocol Anastrozole (Arimidex 1 Mg Tab) 1 mg PO DAILY [facility] Last Admin: 11/11/17 08:29 Dose: 1 mg Enoxaparin Sodium (Lovenox) 40 mg SC DAILY [facility] PRN Reason: Protocol Last Admin: 11/11/17 08:22 Dose: 40 mg Furosemide (Lasix) 40 mg IVP BID [facility] Last Admin: 11/11/17 08:15 Dose: 40 mg Gabapentin (Neurontin) 600 mg PO Q8 [facility] Last Admin: 11/11/17 08:23 Dose: 600 mg Guaifenesin (Mucinex La) 600 mg PO Q12 [facility] Last Admin: 11/11/17 08:23 Dose: 600 mg Hydrocortisone Sodium Succinate (Solu-Cortef) 50 mg IV Q12H [facility] Lidocaine (Lidoderm) 1 ea TD DAILY PRN PRN Reason: Pain, moderate (4-7) Methimazole (Tapazole) 10 mg PO DAILY [facility] Last Admin: 11/11/17 08:26 Dose: 10 mg Metoprolol Tartrate (Lopressor) 12.5 mg PO DAILY [facility] Last Admin: 11/11/17 08:21 Dose: 12.5 mg Mirtazapine (Remeron) 7.5 mg PO [facility] Oxycodone/Acetaminophen (Percocet 5/325 Mg Tab) 2 tab PO Q6 PRN PRN Reason: Pain, severe (8-10) Last Admin: 11/10/17 23:00 Dose: 2 tab Pantoprazole Sodium (Protonix Ec Tab) 40 mg PO DAILY [facility] Last Admin: 11/11/17 08:25 Dose: 40 mg Roflumilast (Daliresp) 500 mcg PO DAILY [facility] Last Admin: 11/11/17 08:28 Dose: 500 mcg - Labs Labs: 11/11/17 05:00 11/11/17 05:00 PT 11.1 Seconds (9.8-13.1) 11/10/17 17:32 INR 1.0 (0.9-1.2) 11/10/17 17:32 APTT 20.7 Seconds (25.6-37.1) L 11/10/17 17:32 - Constitutional Appears: Chronically Ill - Head Exam Head Exam: NORMAL INSPECTION, NORMOCEPHALIC - Eye Exam Eye Exam: EOMI, Normal appearance Pupil Exam: NORMAL ACCOMODATION - ENT Exam ENT Exam: Mucous Membranes Dry, Normal External Ear Exam - Neck Exam Neck Exam: Full ROM. absent: Meningismus - Respiratory Exam Respiratory Exam: Accessory Muscle Use, Decreased Breath Sounds, Rhonchi, Respiratory Distress. absent: Wheezes - Cardiovascular Exam Cardiovascular Exam: REGULAR RHYTHM, +S1, +S2 - GI/Abdominal Exam GI & Abdominal Exam: Soft, Normal Bowel Sounds. absent: Tenderness - Extremities Exam Extremities Exam: Normal Capillary Refill. absent: Pedal Edema Additional comments: Right arm lymphedema LE ecchymosis - Back Exam Back Exam: absent: CVA tenderness (L), CVA tenderness (R) - Neurological Exam Neurological Exam: Alert, Oriented x3 - Psychiatric Exam Psychiatric exam: Normal Affect, Normal Mood - Skin Skin Exam: Dry, Normal Color, Warm Assessment and Plan - Assessment and Plan (Free Text) Assessment: 67 y/o female with multiple chronic conditions - COPD, CHF, Hyperthyroidism, Hx of Breast CA s/p mastectomy , Chronic Right Lymphedema, was brought in because of SOB. 1. Acute Hypercapneic Hypoxic Respiratory Failure on Chronic Resp Failure sec to COPD and CHF exacerbation - Pt was admitted to ICU - started on Bipap- changed to High Flow Oxygen - cont Duonebs - IV Diuretics - Pt started on Hydrocortisone IV - Pulm consulted - Dr Benz - ECHO (2) Acute exacerbation of CHF (congestive heart failure) systolic and diastolic Dysfunction, EF 40 % ( 2017) - Echo -cont diuretics -cont Toprol 2) Acute COPD exacerbation -Continue Duonebs - cont Hydrocortisone - started on PO Augmentin - cont Daliresp 3) Hyperthyroidism -cont methimazole check TSH, T4, T3 4) HTN - cont Toprol (5) DVT prophylaxis Lovenox
[2017-11-11] MEDS: Amoxicillin-Clav 875-125 mg Tab PO SCH ×2 (13:55→20:36)
--- NOTE | 2017-11-11 14:15 | CP.CCUPN ---
CCU Subjective - Physician Review Subjective (Free Text): [employer] PROGRESS NOTE ICU Admission Consultation: Patient examined, interim events reviewed: 67F admitted overnight o ICU for resp distress, CHF with COPD exacerbation, placed on BiPAP support. Presently awake and alert, on BiPAP 10/5, 40% with SPO2 99% and average TV 480, RR 16. Denies any SOB or Chest discomfort now. Placed on 3 LPM nasal cannula for breakfast and has tolerated this well. ROS: as above, no other pertinent negs or positives on 10 system review. PMFSH: Chronic hypercapenic hypoxemic resp insuff, R mandible osteomyelitis, Acquired Hypothyroidism, metastatic Breast CA with R mastectomy, Chronic RUE lymphedema . Otherwise, all nursing and historical notes reviewed, no new pertinent data relevant to current problems. No other distress noted: EXAM- HEENT: no icterus, pupils equal and reactive NECK: no visible JVD, supple, carotids equal upstroke bilat/no bruits, weel healed trach scar CHEST: decreased BS bases, no wheezes audible. Left mastectomy HEART: regular, distant, S1S2, no murmur audible, no rubs. ABD: soft, no increased distention, no focal tenderness, no HSM. BS hypoactive , EXT: + edema, RUE chronically edematous with lymphedema, no peripheral/ digital cyanosis, no calf tenderness or palpable cords, distal pulses intact and symmetrical NEURO: oriented x 3; no gross focal motor deficits SKIN: no rashes LABS: WBC= 5.4 HGB= 13.4 PLTs= 238K 7.41/49/205 Na= 141 K= 4.9 HCO3= 31 BUN/Cr= 15/0.6 BS= 137 CXR: hyperinflated lung corral, no gross consolidation (my interp) EKG: Sinus tachy 137/min with new T inversions laterally in I, L V5-6 ( different when compared to 06/06/2017 study). Assessment / Major Problems now: 1. Acute hypercapneic hypoxemic Resp Failure, 2 Bronchitis; COPD with Emphysematous lung disease; with superimposed CHF decompensation 2 DDysfx 2. Atypical Angina, r/o subacute SD / NSTEMI PLAN: 1. BiPAP support with Q4H reprieves as tolerated. 2. Lasix given overnight with 1000ml urine output, does not appear in decompensated CHF now. 3. Repeat BNP post diuresis. 4. Serial Trops ( 1st set is negative), ECHO ( last study 06/14/16: LVEF 40% with DDysfx, and moderate decreased RV fx), repeat EKG. CCU Objective - Vital Signs / Intake & Output Vital Signs (Last 4 hours): Vital Signs Temp Pulse Resp BP Pulse Ox 11/11/17 13:42 97.6 F 90 18 113/64 96 11/11/17 12:00 98.1 F 76 15 106/54 L 95 Intake and Output (Last 8hrs): Intake & Output 11/10/17 11/11/17 11/11/17 22:59 06:59 14:59 Intake Total 240 0 Output Total 600 150 Balance -360 -150 Weight 160 lb 127 lb Intake: IV 0 Oral 240 Output: Urine 600 150 Urine, Voided 600 150 Other: # Voids Urine, Voided 2 1 # Bowel Movements 1
[2017-11-11] MEDS: Oxycodone/Acetaminophen 5/325 mg Tab PO PRN (20:45)
[2017-11-12 04:57] LABS: ABG ALLEN TEST YES; ARTERIAL BLOOD GAS HCO3 33.1 mmol/L (21-28); ARTERIAL BLOOD GAS HEMOGLOBIN 13.8 g/dL (11.7-17.4); ARTERIAL BLOOD GAS O2 CAPACITY 18.6 mL/dL (16-24); ARTERIAL BLOOD GAS O2 SAT 96.6 % (95-98); ARTERIAL BLOOD GAS PCO2 48 mm/Hg (35-45); ARTERIAL BLOOD GAS PH 7.48 (7.35-7.45); ARTERIAL BLOOD GAS PO2 68 mm/Hg (80-100); ARTERIAL BLOOD GAS TCO2 37.2 mmol/L (22-28)
[2017-11-12 05:27] LABS: BASO # 0.1 K/uL (0.0-0.2); BASO % 1.4 % (0.0-2.0); EOS % 0.1 % (0.0-4.0); HEMOGLOBIN 13.5 g/dL (12.0-16.0); LYMPH # 0.4 K/uL (1.0-4.3); LYMPH % 7.2 % (20.0-40.0); MEAN CELL VOLUME 87.1 fl (81.0-99.0); MEAN CORPUSCULAR HEMOGLOBIN 28.5 pg (27.0-31.0); MEAN CORPUSCULAR HGB CONC 32.7 g/dL (33.0-37.0); MEAN PLATELET VOLUME 7.4 fl (7.2-11.7); MONO # 0.5 K/uL (0.0-0.8); MONO % 9.2 % (0.0-10.0); NEUT # 4.7 K/uL (1.8-7.0); NEUT % 82.1 % (50.0-75.0); PLATELET COUNT 252 K/uL (130-400); RBC 4.74 Mil/uL (3.80-5.20); RED CELL DISTRIBUTION WIDTH 18.6 % (11.5-14.5); WHITE BLOOD COUNT 5.7 K/uL (4.8-10.8)
[2017-11-12 05:40] LABS: B-TYPE NATRIURETIC PEPTIDE 3990 pg/ml (0-900)
[2017-11-12 05:45] LABS: ALB/GLOB RATIO 1.2 (1.0-2.1); ALBUMIN 3.3 g/dL (3.5-5.0); ALT/SGPT 38 U/L (9-52); AST/SGOT 28 U/L (14-36); BLOOD UREA NITROGEN 25 mg/dl (7-17); CALCIUM 8.1 mg/dL (8.4-10.2); GFR NON-AFRICAN AMERICAN > 60
[2017-11-12 05:48] LABS: T4 4.42 ug/dl (5.5-11.0)
[2017-11-12 06:48] LABS: BANDS 2 % (0-2); LYMPHOCYTE 6 % (20-50); MONOCYTE 8 % (0-10); NEUTROPHIL 81 % (42-75); PLATELET ESTIMATE NORMAL (NORMAL); REACTIVE LYMPHOCYTES 3 % (0-0); TOTAL CELLS COUNTED 100
[2017-11-12] MEDS: Albuterol-Ipratrop 3 mg / 0.5 (3 ml) UD INH SCH ×4 (07:58→19:23)
[2017-11-12] MEDS ORDERED: Potassium Chloride 20 mEq ER Tab PO ONE (08:42)
[2017-11-12] MEDS: Amoxicillin-Clav 875-125 mg Tab PO SCH ×2 (08:44→21:24)
[2017-11-12] MEDS: Aspirin 325 mg EC Tablets PO SCH (08:45)
[2017-11-12] MEDS: Lidocaine 5% Patch TD PRN (08:46)
[2017-11-12] MEDS: Enoxaparin 40 mg Syringe SC SCH (08:50)
[2017-11-12] MEDS: guaiFENesin 600 mg ER Tab PO SCH ×2 (08:51→21:22)
[2017-11-12] MEDS: Pantoprazole 40 mg EC Tab PO SCH (08:52)
[2017-11-12] MEDS: methIMAzole 5 MG TAB PO SCH (09:44)
--- NOTE | 2017-11-12 09:53 | CP.PCM.PN ---
Subjective - Date & Time of Evaluation Date of Evaluation: 11/12/17 Time of Evaluation: 09:30 - Subjective Subjective: No fever + cough, dry + wheezing SOB better complains of nausea and lower abd discomfort denies CP Objective - Vital Signs/Intake and Output Vital Signs (last 24 hours): Temp Pulse Resp BP Pulse Ox 98.1 F 91 H 18 149/84 93 L 11/12/17 08:00 11/12/17 08:49 11/12/17 08:00 11/12/17 08:49 11/12/17 08:00 Intake and Output: 11/12/17 11/12/17 06:59 18:59 Intake Total 150 240 Output Total 800 Balance 150 -560 - Medications Medications: Current Medications Acetaminophen (Tylenol 325mg Tab) 650 mg PO Q6 PRN PRN Reason: Pain, Mild (1-3)/headache Last Admin: 11/11/17 13:52 Dose: 650 mg Albuterol Sulfate (Albuterol 0.083% Inhal Aby (2.5 Mg/3 Ml) Ud) 2.5 mg INH RQ4 PRN PRN Reason: Shortness of Breath Albuterol/Ipratropium (Duoneb 3 Mg/0.5 Mg (3 Ml) Ud) 3 ml INH RQID [facility] Last Admin: 11/12/17 07:58 Dose: 3 ml Amoxicillin/Clavulanate Potassium (Augmentin 875 Mg-125 Mg Tab) 1 tab PO Q12 [facility] PRN Reason: Protocol Last Admin: 11/12/17 08:44 Dose: 1 tab Anastrozole (Arimidex 1 Mg Tab) 1 mg PO DAILY [facility] Last Admin: 11/12/17 08:44 Dose: 1 mg Aspirin (Ecotrin) 325 mg PO DAILY [facility] Last Admin: 11/12/17 08:45 Dose: 325 mg Atorvastatin Calcium (Lipitor) 40 mg PO DAILY [facility] Last Admin: 11/12/17 08:49 Dose: 40 mg Enoxaparin Sodium (Lovenox) 40 mg SC DAILY [facility] PRN Reason: Protocol Last Admin: 11/12/17 08:50 Dose: 40 mg Furosemide (Lasix) 40 mg IVP BID [facility] Last Admin: 11/12/17 08:45 Dose: 40 mg Gabapentin (Neurontin) 600 mg PO Q8 [facility] Last Admin: 11/12/17 08:51 Dose: 600 mg Guaifenesin (Mucinex La) 600 mg PO Q12 [facility] Last Admin: 11/12/17 08:51 Dose: 600 mg Hydrocortisone Sodium Succinate (Solu-Cortef) 50 mg IV Q12H [facility] Last Admin: 11/11/17 21:45 Dose: 50 mg Lidocaine (Lidoderm) 1 ea TD DAILY PRN PRN Reason: Pain, moderate (4-7) Last Admin: 11/12/17 08:46 Dose: 1 ea Methimazole (Tapazole) 15 mg PO DAILY [facility] Last Admin: 11/12/17 09:44 Dose: 15 mg Metoprolol Tartrate (Lopressor) 12.5 mg PO DAILY [facility] Last Admin: 11/12/17 08:49 Dose: 12.5 mg Mirtazapine (Remeron) 7.5 mg PO HS [facility] Last Admin: 11/11/17 23:04 Dose: Not Given Oxycodone/Acetaminophen (Percocet 5/325 Mg Tab) 2 tab PO Q6 PRN PRN Reason: Pain, severe (8-10) Last Admin: 11/11/17 20:45 Dose: 2 tab Pantoprazole Sodium (Protonix Ec Tab) 40 mg PO DAILY [facility] Last Admin: 11/12/17 08:52 Dose: 40 mg Roflumilast (Daliresp) 500 mcg PO DAILY [facility] Last Admin: 11/12/17 08:44 Dose: 500 mcg - Labs Labs: 11/12/17 04:15 11/12/17 04:15 PT 11.1 Seconds (9.8-13.1) 11/10/17 17:32 INR 1.0 (0.9-1.2) 11/10/17 17:32 APTT 20.7 Seconds (25.6-37.1) L 11/10/17 17:32 - Constitutional Appears: Chronically Ill Pt on High Flow Oxygen - Head Exam Head Exam: NORMAL INSPECTION, NORMOCEPHALIC - Eye Exam Eye Exam: EOMI, Normal appearance Pupil Exam: NORMAL ACCOMODATION - ENT Exam ENT Exam: Mucous Membranes Dry, Normal External Ear Exam - Neck Exam Neck Exam: Full ROM. absent: Meningismus - Respiratory Exam Respiratory Exam: Accessory Muscle Use, Decreased Breath Sounds, Rhonchi better air entery compared to yesterday , + wheezing - Cardiovascular Exam Cardiovascular Exam: REGULAR RHYTHM, +S1, +S2 - GI/Abdominal Exam GI & Abdominal Exam: Soft, Normal Bowel Sounds. minimal lower abd Tenderness - Extremities Exam Extremities Exam: Normal Capillary Refill. absent: Pedal Edema Additional comments: Right arm lymphedema Lower ext ecchymosis - Back Exam Back Exam: absent: CVA tenderness (L), CVA tenderness (R) - Neurological Exam Neurological Exam: Alert, Oriented x3 - Psychiatric Exam Psychiatric exam: Normal Affect, Normal Mood - Skin Skin Exam: Dry, Normal Color, Warm Assessment and Plan - Assessment and Plan (Free Text) Assessment: 67 y/o female with multiple chronic conditions - COPD, CHF, Hyperthyroidism, Hx of Breast CA s/p mastectomy , Chronic Right Lymphedema, was brought in because of SOB. 1. Acute Hypercapneic Hypoxic Respiratory Failure on Chronic Resp Failure sec to COPD and CHF exacerbation - Pt was admitted to ICU - started on Bipap- changed to High Flow Oxygen - cont Duonebs - IV Diuretics - Pt started on Hydrocortisone IV - Pulm consulted - Dr Benz - ECHO (2) Acute exacerbation of CHF (congestive heart failure) systolic and diastolic Dysfunction, EF 40 % ( 2017) - Echo -cont diuretics -cont Toprol, Add Losartan 3) Acute COPD exacerbation -Continue Duonebs - cont Hydrocortisone - cont PO Augmentin - cont Daliresp 4. Mild Troponin Elevation prob sec to Demand Ischemia from Resp Failure Cardio consult cont ASA, Statin, BB, will add ARB 5. Abd discomfort with slight lower abd tenderness Urinalysis LFTs normal cont PPI if persistent , will do CT of abdomen 6) Hyperthyroidism -TSH low - will increase Methimazole to 15 mg daily 7) HTN - cont Toprol (8) DVT prophylaxis Lovenox
--- NOTE | 2017-11-12 11:01 | CP.PCM.PN ---
Subjective - Date & Time of Evaluation Date of Evaluation: 11/12/17 Time of Evaluation: 11:01 - Subjective Subjective: Seen on morning rounds in the ICU. Case was discussed with the hospitalist. Patient appetite is poor, has lower abdominal discomfort described as a burning sensation. No vomiting, but mild nausea present. Stool for c dif requested by hospitalist. Oxygenation has been acceptable with HFNC. Moist, non-productive cough noted this AM. Vital signs have been stable. Chest x-ray showing improved aeration/expansion. Area of increased BV markings in the right base seems to be more clear, and medial right hemidiaphragm is more clearly seen. RUE remains edematous, still has some drainage, but decreased quantity. Less erythema, softer. Neck is supple, trachea midline. No dullness noted on percussion of the anterior chest wall, no subcut emphysea. Breath sounds are very diminished bilaterally.E phase is prolonged. Scattered sonorous rhonchi w/o distinct wheezes, no bronchial breath sounds. scattered dry to medium rales are heard in dependant zones of the lower lobes bilaterally. Heart sounds are distant, regular, mildly tachycardic. Abdomen seems soft with moderate discomfort on palpation of both LQ's. Trace dependant edema bilaterally, scattered old ecchymoses, no cyanosis. Acute exacerbation of COPD. X-ray suggests an early RLL pneumonia, improving. Lower abdominal discomfort, c dif pending. Chronic lymphedema of RUE with chronic/recurrent cellulitis. Continue current medical and aerosol regimen. Continue high-flow nasal oxygen. Continue short course, moderate dose, corticosteroids. Objective - Vital Signs/Intake and Output Vital Signs (last 24 hours): Temp Pulse Resp BP Pulse Ox 98.0 F 91 H 17 126/66 93 L 11/12/17 09:57 11/12/17 09:57 11/12/17 09:57 11/12/17 09:57 11/12/17 08:00 Intake and Output: 11/11/17 11/12/17 23:59 11:59 Intake Total 730 360 Output Total 925 1200 Balance -195 -840 - Medications Medications: Current Medications Acetaminophen (Tylenol 325mg Tab) 650 mg PO Q6 PRN PRN Reason: Pain, Mild (1-3)/headache Last Admin: 11/11/17 13:52 Dose: 650 mg Albuterol Sulfate (Albuterol 0.083% Inhal Aby (2.5 Mg/3 Ml) Ud) 2.5 mg INH RQ4 PRN PRN Reason: Shortness of Breath Albuterol/Ipratropium (Duoneb 3 Mg/0.5 Mg (3 Ml) Ud) 3 ml INH RQID [facility] Last Admin: 11/12/17 07:58 Dose: 3 ml Amoxicillin/Clavulanate Potassium (Augmentin 875 Mg-125 Mg Tab) 1 tab PO Q12 ANDREAS PRN Reason: Protocol Last Admin: 11/12/17 08:44 Dose: 1 tab Anastrozole (Arimidex 1 Mg Tab) 1 mg PO DAILY [facility] Last Admin: 11/12/17 08:44 Dose: 1 mg Aspirin (Ecotrin) 325 mg PO DAILY [facility] Last Admin: 11/12/17 08:45 Dose: 325 mg Atorvastatin Calcium (Lipitor) 40 mg PO DAILY [facility] Last Admin: 11/12/17 08:49 Dose: 40 mg Enoxaparin Sodium (Lovenox) 40 mg SC DAILY [facility] PRN Reason: Protocol Last Admin: 11/12/17 08:50 Dose: 40 mg Furosemide (Lasix) 40 mg IVP BID [facility] Last Admin: 11/12/17 08:45 Dose: 40 mg Gabapentin (Neurontin) 600 mg PO Q8 [facility] Last Admin: 11/12/17 08:51 Dose: 600 mg Guaifenesin (Mucinex La) 600 mg PO Q12 [facility] Last Admin: 11/12/17 08:51 Dose: 600 mg Hydrocortisone Sodium Succinate (Solu-Cortef) 50 mg IV Q12H [facility] Last Admin: 11/12/17 10:05 Dose: 50 mg Lidocaine (Lidoderm) 1 ea TD DAILY PRN PRN Reason: Pain, moderate (4-7) Last Admin: 11/12/17 08:46 Dose: 1 ea Losartan Potassium (Cozaar) 50 mg PO DAILY [facility] Methimazole (Tapazole) 15 mg PO DAILY [facility] Last Admin: 11/12/17 09:44 Dose: 15 mg Metoprolol Tartrate (Lopressor) 12.5 mg PO DAILY [facility] Last Admin: 11/12/17 08:49 Dose: 12.5 mg Mirtazapine (Remeron) 7.5 mg PO HS [facility] Last Admin: 11/11/17 23:04 Dose: Not Given Oxycodone/Acetaminophen (Percocet 5/325 Mg Tab) 2 tab PO Q6 PRN PRN Reason: Pain, severe (8-10) Last Admin: 11/11/17 20:45 Dose: 2 tab Pantoprazole Sodium (Protonix Ec Tab) 40 mg PO DAILY [facility] Last Admin: 11/12/17 08:52 Dose: 40 mg Roflumilast (Daliresp) 500 mcg PO DAILY [facility] Last Admin: 11/12/17 08:44 Dose: 500 mcg - Labs Labs: 11/12/17 04:15 11/12/17 04:15 PT 11.1 Seconds (9.8-13.1) 11/10/17 17:32 INR 1.0 (0.9-1.2) 11/10/17 17:32 APTT 20.7 Seconds (25.6-37.1) L 11/10/17 17:32
--- NOTE | 2017-11-12 12:50 | RAD ---
HISTORY: CHF,COPD COMPARISON: No prior. FINDINGS: LUNGS: No active pulmonary disease. PLEURA: No significant pleural effusion identified, no pneumothorax apparent. CARDIOVASCULAR: Atherosclerotic aortic calcifications. Cardiomediastinal silhouette stably aligned. OSSEOUS STRUCTURES: Absent proximal right humerus. Anterior cervical fixation plate redemonstrated. Unchanged. VISUALIZED UPPER ABDOMEN: Normal. OTHER FINDINGS: Bilateral axillary surgical clips redemonstrated. IMPRESSION: No active disease.
[2017-11-12] MEDS ORDERED: Sodium Chloride 0.9% 500 ML IV ONE ×2 (14:27→22:57)
[2017-11-12 15:05] LABS: SQUAMOUS EPITHIAL 1 /hpf (0-5); URINE BACTERIA FEW (<OCC); URINE BILIRUBIN NEGATIVE (NEGATIVE); URINE BLOOD NEGATIVE (NEGATIVE); URINE CLARITY CLEAR (Clear); URINE COLOR STRAW (YELLOW); URINE GLUCOSE (UA) NEG (Normal); URINE LEUKOCYTE ESTERASE TRACE Leu/uL (Negative); URINE PROTEIN NEGATIVE (NEGATIVE); URINE UROBILINOGEN 0.2-1.0 mg/dL (0.2-1.0)
--- NOTE | 2017-11-12 17:43 | CP.CCUPN ---
CCU Subjective - Physician Review Events Since Last Encounter (Free Text): 11/12/17 17:41 alert and oriented, SOB is better, was nauseous in morning, improved, has episode of low BP which improved with 500 cc IVF NS bolus. On exam and on reviewing CXR, there was no pulm congestion, lasix on hold and also losartan, on HFNL oxygen . CCU Objective - Vital Signs / Intake & Output Vital Signs (Last 4 hours): Vital Signs Temp Pulse Resp BP Pulse Ox 11/12/17 16:00 97.3 F L 73 20 77/49 L 95 11/12/17 15:53 20 11/12/17 14:00 98.0 F 78 19 66/44 L 93 L Intake and Output (Last 8hrs): Intake & Output 11/12/17 11/12/17 11/12/17 06:59 14:59 22:59 Intake Total 0 600 500 Output Total 1650 120 Balance 0 -1050 380 Weight 126 lb Intake: IV 0 500 Oral 600 Output: Urine 600 0 Urine, Voided 600 0 Stool 550 120 Urine/Stool Mix 500 0 Other: # Voids Urine, Voided 2 # Bowel Movements 1 1 - Physical Exam Narrative Physical Exam (Free Text): 11/12/17 17:43 P/E Neck: No JVd Lungs: bilateral ronchi Heart: no gallop Ext: no edema Abdomen: soft, non-tender - Medications Active Medications: Active Medications Generic Name Dose Route Start Last Admin Trade Name Freq PRN Reason Stop Dose Admin Acetaminophen 650 mg 11/10/17 20:15 11/11/17 13:52 Tylenol 325mg Tab PO 650 mg Q6 PRN Administration Pain, Mild (1-3)/headache Albuterol Sulfate 2.5 mg 11/11/17 08:55 Albuterol 0.083% Inhal Aby (2.5 Mg/3 Ml) Ud INH RQ4 PRN Shortness of Breath Albuterol/Ipratropium 3 ml 11/10/17 20:00 11/12/17 15:52 Duoneb 3 Mg/0.5 Mg (3 Ml) Ud INH 3 ml RQID ANDREAS Administration Amoxicillin/Clavulanate Potassium 1 tab 11/11/17 10:15 11/12/17 08:44 Augmentin 875 Mg-125 Mg Tab PO 1 tab Q12 ANDREAS Administration Protocol Anastrozole 1 mg 11/11/17 09:00 11/12/17 08:44 Arimidex 1 Mg Tab PO 1 mg DAILY [facility] Administration Aspirin 325 mg 11/12/17 09:00 11/12/17 08:45 Ecotrin PO 325 mg DAILY [facility] Administration Atorvastatin Calcium 40 mg 11/12/17 09:00 11/12/17 08:49 Lipitor PO 40 mg DAILY [facility] Administration Enoxaparin Sodium 40 mg 11/11/17 09:00 11/12/17 08:50 Lovenox SC 40 mg DAILY [facility] Administration Protocol Gabapentin 600 mg 11/11/17 01:00 11/12/17 17:08 Neurontin PO 600 mg Q8 [facility] Administration Guaifenesin 600 mg 11/10/17 21:00 11/12/17 08:51 Mucinex La PO 600 mg Q12 [facility] Administration Hydrocortisone Sodium Succinate 50 mg 11/11/17 10:15 11/12/17 10:05 Solu-Cortef IV 50 mg Q12H [facility] Administration Lidocaine 1 ea 11/10/17 19:55 11/12/17 08:46 Lidoderm TD 1 ea DAILY PRN Administration Pain, moderate (4-7) Losartan Potassium 50 mg 11/12/17 10:15 11/12/17 10:45 Cozaar PO 50 mg DAILY [facility] Administration Methimazole 15 mg 11/12/17 08:38 11/12/17 09:44 Tapazole PO 15 mg DAILY [facility] Administration Metoprolol Tartrate 12.5 mg 11/11/17 09:00 11/12/17 08:49 Lopressor PO 12.5 mg DAILY [facility] Administration Mirtazapine 7.5 mg 11/11/17 22:00 11/11/17 23:04 Remeron PO Not Given HS [facility] Oxycodone/Acetaminophen 2 tab 11/10/17 19:55 11/11/17 20:45 Percocet 5/325 Mg Tab PO 2 tab Q6 PRN Administration Pain, severe (8-10) Pantoprazole Sodium 40 mg 11/11/17 09:00 11/12/17 08:52 Protonix Ec Tab PO 40 mg DAILY [facility] Administration Roflumilast 500 mcg 11/11/17 09:00 11/12/17 08:44 Daliresp PO 500 mcg DAILY [facility] Administration - Patient Studies Lab Studies: Microbiology Studies 11/10/17 00:40 MRSA Culture (Admit) - Final Naris MRSA NOT DETECTED 11/10/17 15:00 Blood Culture - Preliminary Blood NO GROWTH AFTER 24 HOURS Lab Studies 11/12/17 11/12/17 11/12/17 Range/Units 14:48 04:15 04:15 WBC 5.7 (4.8-10.8) K/uL RBC 4.74 (3.80-5.20) Mil/uL Hgb 13.5 (12.0-16.0) g/dL Hct 41.2 (34.0-47.0) % MCV 87.1 (81.0-99.0) fl MCH 28.5 (27.0-31.0) pg MCHC 32.7 L (33.0-37.0) g/dL RDW 18.6 H (11.5-14.5) % Plt Count 252 (130-400) K/uL MPV 7.4 (7.2-11.7) fl Neut % (Auto) 82.1 H (50.0-75.0) % Lymph % (Auto) 7.2 L (20.0-40.0) % Stark % (Auto) 9.2 (0.0-10.0) % Eos % (Auto) 0.1 (0.0-4.0) % Baso % (Auto) 1.4 (0.0-2.0) % Neut # (Auto) 4.7 (1.8-7.0) K/uL Lymph # (Auto) 0.4 L (1.0-4.3) K/uL Stark # (Auto) 0.5 (0.0-0.8) K/uL Eos # (Auto) 0.0 (0.0-0.7) K/uL Baso # (Auto) 0.1 (0.0-0.2) K/uL Neutrophils % (Manual) 81 H (42-75) % Band Neutrophils % 2 (0-2) % Lymphocytes % (Manual) 6 L (20-50) % Reactive Lymphs % 3 H (0-0) % Monocytes % (Manual) 8 (0-10) % Platelet Estimate Normal (NORMAL) pCO2 (35-45) mm/Hg pO2 (80-100) mm/Hg HCO3 (21-28) mmol/L ABG pH (7.35-7.45) ABG Total CO2 (22-28) mmol/L ABG O2 Saturation (95-98) % ABG O2 Content (15-23) ML/dL ABG Base Excess (-2.0-3.0) mmol/L ABG Hemoglobin (11.7-17.4) g/dL ABG Carboxyhemoglobin (0.5-1.5) % POC ABG HHb (Measured) (0.0-5.0) % ABG Methemoglobin (0.0-3.0) % ABG O2 Capacity (16-24) mL/dL Tawanda Test A-a O2 Difference mm/Hg Hgb O2 Saturation (95.0-98.0) % Liter Flow Vent Mode FiO2 % Sodium 138 (132-148) mmol/l Potassium 3.3 L (3.6-5.0) MMOL/L Chloride 99 (98-107) mmol/L Carbon Dioxide 32 H (22-30) mmol/L Anion Gap 10 (10-20) BUN 25 H (7-17) mg/dl Creatinine 0.7 (0.7-1.2) mg/dl Est GFR ( Amer) > 60 Est GFR (Non-Af Amer) > 60 Random Glucose 112 H (65-105) mg/dL Calcium 8.1 L (8.4-10.2) mg/dL Total Bilirubin 0.4 (0.2-1.3) mg/dl AST 28 (14-36) U/L ALT 38 (9-52) U/L Alkaline Phosphatase 66 (38-126) U/L Troponin I (0.00-0.120) ng/mL NT-Pro-B Natriuret Pep 3990 H (0-900) pg/ml Total Protein 6.2 L (6.3-8.2) G/DL Albumin 3.3 L (3.5-5.0) g/dL Globulin 2.9 (2.2-3.9) gm/dL Albumin/Globulin Ratio 1.2 (1.0-2.1) Thyroxine (T4) 4.42 L (5.5-11.0) ug/dl Total T3 0.910 L (1.49-2.60) nmol/L TSH 3rd Generation 0.28 L (0.46-4.68) mIU/ML Urine Color Straw (YELLOW) Urine Clarity Clear (Clear) Urine pH 7.0 (5.0-8.0) Ur Specific Dawn 1.009 (1.003-1.030) Urine Protein Negative (NEGATIVE) mg/dL Urine Glucose (UA) Neg (Normal) mg/dL Urine Ketones Negative (NEGATIVE) mg/dL Urine Blood Negative (NEGATIVE) Urine Nitrate Negative (NEGATIVE) Urine Bilirubin Negative (NEGATIVE) Urine Urobilinogen 0.2-1.0 (0.2-1.0) mg/dL Ur Leukocyte Esterase Trace (Negative) Ben/uL Urine RBC (Auto) 2 (0-3) /hpf Urine Microscopic WBC 4 (0-5) /hpf Ur Squamous Epith Cells 1 (0-5) /hpf Urine Bacteria Few H (<OCC) Hyaline Casts 3-5 H (0-2) /hpf 11/12/17 11/11/17 11/11/17 Range/Units 04:00 23:00 17:01 WBC (4.8-10.8) K/uL RBC (3.80-5.20) Mil/uL Hgb (12.0-16.0) g/dL Hct (34.0-47.0) % MCV (81.0-99.0) fl MCH (27.0-31.0) pg MCHC (33.0-37.0) g/dL RDW (11.5-14.5) % Plt Count (130-400) K/uL MPV (7.2-11.7) fl Neut % (Auto) (50.0-75.0) % Lymph % (Auto) (20.0-40.0) % Stark % (Auto) (0.0-10.0) % Eos % (Auto) (0.0-4.0) % Baso % (Auto) (0.0-2.0) % Neut # (Auto) (1.8-7.0) K/uL Lymph # (Auto) (1.0-4.3) K/uL Stark # (Auto) (0.0-0.8) K/uL Eos # (Auto) (0.0-0.7) K/uL Baso # (Auto) (0.0-0.2) K/uL Neutrophils % (Manual) (42-75) % Band Neutrophils % (0-2) % Lymphocytes % (Manual) (20-50) % Reactive Lymphs % (0-0) % Monocytes % (Manual) (0-10) % Platelet Estimate (NORMAL) pCO2 48 H (35-45) mm/Hg pO2 68 L (80-100) mm/Hg HCO3 33.1 H (21-28) mmol/L ABG pH 7.48 H (7.35-7.45) ABG Total CO2 37.2 H (22-28) mmol/L ABG O2 Saturation 96.6 (95-98) % ABG O2 Content 18.0 (15-23) ML/dL ABG Base Excess 10.6 H (-2.0-3.0) mmol/L ABG Hemoglobin 13.8 (11.7-17.4) g/dL ABG Carboxyhemoglobin 2.0 H (0.5-1.5) % POC ABG HHb (Measured) 3.3 (0.0-5.0) % ABG Methemoglobin 1.8 (0.0-3.0) % ABG O2 Capacity 18.6 (16-24) mL/dL Tawanda Test Yes A-a O2 Difference 86.0 mm/Hg Hgb O2 Saturation 92.9 L (95.0-98.0) % Liter Flow 30 Vent Mode High flow lpm FiO2 30.0 % Sodium (132-148) mmol/l Potassium (3.6-5.0) MMOL/L Chloride (98-107) mmol/L Carbon Dioxide (22-30) mmol/L Anion Gap (10-20) BUN (7-17) mg/dl Creatinine (0.7-1.2) mg/dl Est GFR ( Amer) Est GFR (Non-Af Amer) Random Glucose (65-105) mg/dL Calcium (8.4-10.2) mg/dL Total Bilirubin (0.2-1.3) mg/dl AST (14-36) U/L ALT (9-52) U/L Alkaline Phosphatase (38-126) U/L Troponin I 0.1120 0.1460 H* (0.00-0.120) ng/mL NT-Pro-B Natriuret Pep (0-900) pg/ml Total Protein (6.3-8.2) G/DL Albumin (3.5-5.0) g/dL Globulin (2.2-3.9) gm/dL Albumin/Globulin Ratio (1.0-2.1) Thyroxine (T4) (5.5-11.0) ug/dl Total T3 (1.49-2.60) nmol/L TSH 3rd Generation (0.46-4.68) mIU/ML Urine Color (YELLOW) Urine Clarity (Clear) Urine pH (5.0-8.0) Ur Specific Dawn (1.003-1.030) Urine Protein (NEGATIVE) mg/dL Urine Glucose (UA) (Normal) mg/dL Urine Ketones (NEGATIVE) mg/dL Urine Blood (NEGATIVE) Urine Nitrate (NEGATIVE) Urine Bilirubin (NEGATIVE) Urine Urobilinogen (0.2-1.0) mg/dL Ur Leukocyte Esterase (Negative) Ben/uL Urine RBC (Auto) (0-3) /hpf Urine Microscopic WBC (0-5) /hpf Ur Squamous Epith Cells (0-5) /hpf Urine Bacteria (<OCC) Hyaline Casts (0-2) /hpf Laboratory Results - last 24 hr 11/11/17 11/11/17 11/12/17 17:01 23:00 04:00 WBC RBC Hgb Hct MCV MCH MCHC RDW Plt Count MPV Neut % (Auto) Lymph % (Auto) Stark % (Auto) Eos % (Auto) Baso % (Auto) Neut # (Auto) Lymph # (Auto) Stark # (Auto) Eos # (Auto) Baso # (Auto) Neutrophils % (Manual) Band Neutrophils % Lymphocytes % (Manual) Reactive Lymphs % Monocytes % (Manual) Platelet Estimate pCO2 48 H pO2 68 L HCO3 33.1 H ABG pH 7.48 H ABG Total CO2 37.2 H ABG O2 Saturation 96.6 ABG O2 Content 18.0 ABG Base Excess 10.6 H ABG Hemoglobin 13.8 ABG Carboxyhemoglobin 2.0 H POC ABG HHb (Measured) 3.3 ABG Methemoglobin 1.8 ABG O2 Capacity 18.6 Tawanda Test Yes A-a O2 Difference 86.0 Hgb O2 Saturation 92.9 L Liter Flow 30 Vent Mode High flow lpm FiO2 30.0 Sodium Potassium Chloride Carbon Dioxide Anion Gap BUN Creatinine Est GFR ( Amer) Est GFR (Non-Af Amer) Random Glucose Calcium Total Bilirubin AST ALT Alkaline Phosphatase Troponin I 0.1460 H* 0.1120 NT-Pro-B Natriuret Pep Total Protein Albumin Globulin Albumin/Globulin Ratio Thyroxine (T4) Total T3 TSH 3rd Generation Urine Color Urine Clarity Urine pH Ur Specific Dawn Urine Protein Urine Glucose (UA) Urine Ketones Urine Blood Urine Nitrate Urine Bilirubin Urine Urobilinogen Ur Leukocyte Esterase Urine RBC (Auto) Urine Microscopic WBC Ur Squamous Epith Cells Urine Bacteria Hyaline Casts 11/12/17 11/12/17 11/12/17 04:15 04:15 14:48 WBC 5.7 RBC 4.74 Hgb 13.5 Hct 41.2 MCV 87.1 MCH 28.5 MCHC 32.7 L RDW 18.6 H Plt Count 252 MPV 7.4 Neut % (Auto) 82.1 H Lymph % (Auto) 7.2 L Stark % (Auto) 9.2 Eos % (Auto) 0.1 Baso % (Auto) 1.4 Neut # (Auto) 4.7 Lymph # (Auto) 0.4 L Stark # (Auto) 0.5 Eos # (Auto) 0.0 Baso # (Auto) 0.1 Neutrophils % (Manual) 81 H Band Neutrophils % 2 Lymphocytes % (Manual) 6 L Reactive Lymphs % 3 H Monocytes % (Manual) 8 Platelet Estimate Normal pCO2 pO2 HCO3 ABG pH ABG Total CO2 ABG O2 Saturation ABG O2 Content ABG Base Excess ABG Hemoglobin ABG Carboxyhemoglobin POC ABG HHb (Measured) ABG Methemoglobin ABG O2 Capacity Tawanda Test A-a O2 Difference Hgb O2 Saturation Liter Flow Vent Mode FiO2 Sodium 138 Potassium 3.3 L Chloride 99 Carbon Dioxide 32 H Anion Gap 10 BUN 25 H Creatinine 0.7 Est GFR ( Amer) > 60 Est GFR (Non-Af Amer) > 60 Random Glucose 112 H Calcium 8.1 L Total Bilirubin 0.4 AST 28 ALT 38 Alkaline Phosphatase 66 Troponin I NT-Pro-B Natriuret Pep 3990 H Total Protein 6.2 L Albumin 3.3 L Globulin 2.9 Albumin/Globulin Ratio 1.2 Thyroxine (T4) 4.42 L Total T3 0.910 L TSH 3rd Generation 0.28 L Urine Color Straw Urine Clarity Clear Urine pH 7.0 Ur Specific Dawn 1.009 Urine Protein Negative Urine Glucose (UA) Neg Urine Ketones Negative Urine Blood Negative Urine Nitrate Negative Urine Bilirubin Negative Urine Urobilinogen 0.2-1.0 Ur Leukocyte Esterase Trace Urine RBC (Auto) 2 Urine Microscopic WBC 4 Ur Squamous Epith Cells 1 Urine Bacteria Few H Hyaline Casts 3-5 H Critical Care Progress Note - Nutrition Nutrition: Nutrition Category Date Time Status Dysphagia/Modified Consistency Diet [DIET] Diets 11/11/17 Lunch Active Assessment/Plan - Assessment and Plan (Free Text) Assessment: 1. Acute Hypercapneic Hypoxic Respiratory Failure due to COPD exacerbation. - On HFNL - was on Bipap- - cont Duonebs - IV Diuretics discontinued, BP was low and no pulm congestion Given 500 cc NS bolus - on Hydrocortisone IV - - ECHO 2. Mild Troponin Elevation prob sec to Demand Ischemia from Resp Failure Cardio consult cont ASA, Statin, BB, will add ARB 3. Abd discomfort with slight lower abd tenderness Improved Urinalysis LFTs normal cont PPI if persistent , will do CT of abdomen 4 ) Hyperthyroidism -TSH low - will increase Methimazole to 15 mg daily 5) Hypotension: Due to multiple meds and diuretics Dc lasix and Losartan - cont Toprol (6) DVT prophylaxis Lovenox
[2017-11-12] MEDS ORDERED: Sodium Chloride 0.9% 500 ML IV SCH (19:30)
[2017-11-13 05:45] LABS: HEMOGLOBIN 12.5 g/dL (12.0-16.0); MEAN CELL VOLUME 86.7 fl (81.0-99.0); MEAN CORPUSCULAR HEMOGLOBIN 28.1 pg (27.0-31.0); MEAN CORPUSCULAR HGB CONC 32.5 g/dL (33.0-37.0); RBC 4.44 Mil/uL (3.80-5.20); RED CELL DISTRIBUTION WIDTH 18.3 % (11.5-14.5); WHITE BLOOD COUNT 4.7 K/uL (4.8-10.8)
[2017-11-13 05:58] LABS: BLOOD UREA NITROGEN 26 mg/dl (7-17); CALCIUM 7.9 mg/dL (8.4-10.2); GFR NON-AFRICAN AMERICAN > 60
[2017-11-13] MEDS: Albuterol-Ipratrop 3 mg / 0.5 (3 ml) UD INH SCH ×4 (07:16→19:07)
--- NOTE | 2017-11-13 07:59 | CP.PCM.CON ---
History of Present Illness - History of Present Illness History of Present Illness: 67 y/o female with respiratory failure ADMITTED TO ICU was on BiPAP now resting comfortably on room air Denies chest pain or SOB EKG: Sinus Tachycardia ECHO: Extremely poor technically Global Hypokinesia EF: 35-40% Troponin elevated x 1 Medical history: Chronic respiratory failure, bilateral breast cancer with mets to the right shoulder, s/p chemo-XRT 8 years ago with right arm lymphedema, Hyperthyroidism, anemia of chronic disease, osteoporosis, hypertension, R cephalic vein thrombosis, peripheral neuropathy, anxiety. bilateral mastectomies R 1998/ L2; total R shoulder replacement (2003) and removal (2013), 67 y/o female with respiratory failureTrach was placed 07/2016 and removed 2016. Past Patient History - Infectious Disease Hx of Infectious Diseases: None - Tetanus Immunizations Tetanus Immunization: Unknown - Past Medical History & Family History Past Medical History?: Yes - Past Social History Smoking Status: Former Smoker - CARDIAC Hx Cardiac Disorders: Yes - PULMONARY Hx Asthma: Yes Hx Bronchitis: Yes Hx Chronic Obstructive Pulmonary Disease (COPD): Yes Hx Pneumonia: Yes - NEUROLOGICAL Hx Neurological Disorder: Yes - HEENT Hx HEENT Problems: Yes - RENAL Hx Chronic Kidney Disease: No - ENDOCRINE/METABOLIC Hx Hyperthyroidism: Yes (on methimazole) Hx Hypothyroidism: Yes - HEMATOLOGICAL/ONCOLOGICAL Hx Anemia: Yes Hx Human Immunodeficiency Virus (HIV): No - INTEGUMENTARY Hx Cellulitis: Yes (RUE) - MUSCULOSKELETAL/RHEUMATOLOGICAL Hx Arthritis: Yes Hx Falls: No Hx Fractures: Yes Hx Osteoporosis: Yes - GASTROINTESTINAL Hx Gall Bladder Disease: Yes - GENITOURINARY/GYNECOLOGICAL Hx Genitourinary Disorders: No - PSYCHIATRIC Hx Anxiety: Yes Hx Substance Use: No - SURGICAL HISTORY Hx Surgeries: Yes Hx Mastectomy: Yes (right in 1998; left in 2008) Hx Orthopedic Surgery: Yes (2003 rigtht shoulder prosthesis, removal of hardware 2013) Hx Tubal Ligation: Yes Other/Comment: shoulder and humerous replacement with joint space infection and eventual removal of hardware in right shoulder and chronic lymphedema of RUE, groin cyst removal, cervical spinal fusion 2007, lumbar spinal fusion 2007. - ANESTHESIA Hx Anesthesia: Yes Hx Anesthesia Reactions: No Hx Malignant Hyperthermia: No Meds Allergies/Adverse Reactions: Allergies Allergy/AdvReac Type Severity Reaction Status Date / Time paper tape Allergy RASH Uncoded 11/10/17 15:04 - Medications Medications: Current Medications Acetaminophen (Tylenol 325mg Tab) 650 mg PO Q6 PRN PRN Reason: Pain, Mild (1-3)/headache Last Admin: 11/11/17 13:52 Dose: 650 mg Albuterol Sulfate (Albuterol 0.083% Inhal Aby (2.5 Mg/3 Ml) Ud) 2.5 mg INH RQ4 PRN PRN Reason: Shortness of Breath Albuterol/Ipratropium (Duoneb 3 Mg/0.5 Mg (3 Ml) Ud) 3 ml INH RQID [facility] Last Admin: 11/13/17 07:16 Dose: 3 ml Amoxicillin/Clavulanate Potassium (Augmentin 875 Mg-125 Mg Tab) 1 tab PO Q12 [facility] PRN Reason: Protocol Last Admin: 11/12/17 21:24 Dose: 1 tab Anastrozole (Arimidex 1 Mg Tab) 1 mg PO DAILY [facility] Last Admin: 11/12/17 08:44 Dose: 1 mg Aspirin (Ecotrin) 325 mg PO DAILY [facility] Last Admin: 11/12/17 08:45 Dose: 325 mg Atorvastatin Calcium (Lipitor) 40 mg PO DAILY [facility] Last Admin: 11/12/17 08:49 Dose: 40 mg Enoxaparin Sodium (Lovenox) 40 mg SC DAILY [facility] PRN Reason: Protocol Last Admin: 11/12/17 08:50 Dose: 40 mg Gabapentin (Neurontin) 600 mg PO Q8 [facility] Last Admin: 11/13/17 00:02 Dose: 600 mg Guaifenesin (Mucinex La) 600 mg PO Q12 [facility] Last Admin: 11/12/17 21:22 Dose: 600 mg Hydrocortisone Sodium Succinate (Solu-Cortef) 50 mg IV Q12H [facility] Last Admin: 11/12/17 21:26 Dose: 50 mg Sodium Chloride (Sodium Chloride 0.9%) 500 mls @ 500 mls/hr IV .Q1H [facility] Last Admin: 11/12/17 19:30 Dose: 500 mls/hr Lidocaine (Lidoderm) 1 ea TD DAILY PRN PRN Reason: Pain, moderate (4-7) Last Admin: 11/12/17 08:46 Dose: 1 ea Losartan Potassium (Cozaar) 50 mg PO DAILY [facility] Last Admin: 11/12/17 10:45 Dose: 50 mg Methimazole (Tapazole) 15 mg PO DAILY [facility] Last Admin: 11/12/17 09:44 Dose: 15 mg Metoprolol Tartrate (Lopressor) 12.5 mg PO DAILY [facility] Last Admin: 11/12/17 08:49 Dose: 12.5 mg Metronidazole (Flagyl) 500 mg PO Q8 [facility] PRN Reason: Protocol Last Admin: 11/13/17 00:02 Dose: 500 mg Mirtazapine (Remeron) 7.5 mg PO HS [facility] Last Admin: 11/12/17 21:23 Dose: 7.5 mg Oxycodone/Acetaminophen (Percocet 5/325 Mg Tab) 2 tab PO Q6 PRN PRN Reason: Pain, severe (8-10) Last Admin: 11/11/17 20:45 Dose: 2 tab Pantoprazole Sodium (Protonix Ec Tab) 40 mg PO DAILY [facility] Last Admin: 11/12/17 08:52 Dose: 40 mg Roflumilast (Daliresp) 500 mcg PO DAILY [facility] Last Admin: 11/12/17 08:44 Dose: 500 mcg Physical Exam - Constitutional Appears: Well - Eye Exam Eye Exam: Normal appearance - ENT Exam ENT Exam: Normal Exam - Neck Exam Neck exam: Positive for: Normal Inspection - Respiratory Exam Respiratory Exam: Decreased Breath Sounds - Cardiovascular Exam Cardiovascular Exam: REGULAR RHYTHM Results - Vital Signs Recent Vital Signs: Last Vital Signs Temp 98.7 F 11/13/17 04:00 Pulse 73 11/13/17 06:00 Resp 16 11/13/17 06:00 BP 133/92 H 11/13/17 06:00 Pulse Ox 94 L 11/13/17 06:00 - Labs Result Diagrams: 11/13/17 04:19 11/13/17 04:19 Labs: Laboratory Results - last 24 hr 11/12/17 11/12/17 11/13/17 14:48 16:24 04:19 WBC RBC Hgb Hct MCV MCH MCHC RDW Plt Count Sodium 138 Potassium 3.1 L Chloride 101 Carbon Dioxide 30 Anion Gap 10 BUN 26 H Creatinine 0.6 L Est GFR ( Amer) > 60 Est GFR (Non-Af Amer) > 60 Random Glucose 97 Calcium 7.9 L Urine Color Straw Urine Clarity Clear Urine pH 7.0 Ur Specific [place] 1.009 Urine Protein Negative Urine Glucose (UA) Neg Urine Ketones Negative Urine Blood Negative Urine Nitrate Negative Urine Bilirubin Negative Urine Urobilinogen 0.2-1.0 Ur Leukocyte Esterase Trace Urine RBC (Auto) 2 Urine Microscopic WBC 4 Ur Squamous Epith Cells 1 Urine Bacteria Few H Hyaline Casts 3-5 H C. difficile Ag & Toxin Positive antigen 11/13/17 04:19 WBC 4.7 L RBC 4.44 Hgb 12.5 Hct 38.5 MCV 86.7 MCH 28.1 MCHC 32.5 L RDW 18.3 H Plt Count 231 Sodium Potassium Chloride Carbon Dioxide Anion Gap BUN Creatinine Est GFR ( Amer) Est GFR (Non-Af Amer) Random Glucose Calcium Urine Color Urine Clarity Urine pH Ur Specific [place] Urine Protein Urine Glucose (UA) Urine Ketones Urine Blood Urine Nitrate Urine Bilirubin Urine Urobilinogen Ur Leukocyte Esterase Urine RBC (Auto) Urine Microscopic WBC Ur Squamous Epith Cells Urine Bacteria Hyaline Casts C. difficile Ag & Toxin Assessment & Plan (1) Acute respiratory failure with hypoxia Status: Acute (2) Hypotension Status: Acute (3) Troponin level elevated Assessment and Plan: Most likely secondary to Acute Respiratory Failure Hypotension Status: Acute
[2017-11-13] MEDS ORDERED: Potassium Chloride 20 mEq ER Tab PO ONE (09:02)
[2017-11-13] MEDS: Pantoprazole 40 mg EC Tab PO SCH (10:12)
[2017-11-13] MEDS: Enoxaparin 40 mg Syringe SC SCH (10:13)
[2017-11-13] MEDS: guaiFENesin 600 mg ER Tab PO SCH ×2 (10:13→21:35)
[2017-11-13] MEDS: methIMAzole 5 MG TAB PO SCH (10:13)
[2017-11-13] MEDS: Amoxicillin-Clav 875-125 mg Tab PO SCH ×2 (10:14→21:35)
[2017-11-13] MEDS: Aspirin 325 mg EC Tablets PO SCH (10:14)
--- NOTE | 2017-11-13 11:03 | CP.PCM.PN ---
Subjective - Date & Time of Evaluation Date of Evaluation: 11/13/17 Time of Evaluation: 10:30 - Subjective Subjective: No fever had several episodes of diarrhea yesterday afternoon and became hypotensive likely due to hypovolemia , (pt was also on IV diuretics) had another diarrhea this am mild lower abd discomfort tolerated PO diet during breakfast denies CP + cough, SOB but better + wheezing Objective - Vital Signs/Intake and Output Vital Signs (last 24 hours): Temp Pulse Resp BP Pulse Ox 98.1 F 83 16 111/62 97 11/13/17 08:00 11/13/17 10:00 11/13/17 10:00 11/13/17 10:00 11/13/17 10:00 Intake and Output: 11/13/17 11/13/17 06:59 18:59 Intake Total 500 0 Output Total 50 Balance 450 0 - Medications Medications: Current Medications Acetaminophen (Tylenol 325mg Tab) 650 mg PO Q6 PRN PRN Reason: Pain, Mild (1-3)/headache Last Admin: 11/11/17 13:52 Dose: 650 mg Albuterol Sulfate (Albuterol 0.083% Inhal Aby (2.5 Mg/3 Ml) Ud) 2.5 mg INH RQ4 PRN PRN Reason: Shortness of Breath Albuterol/Ipratropium (Duoneb 3 Mg/0.5 Mg (3 Ml) Ud) 3 ml INH RQID [facility] Last Admin: 11/13/17 11:00 Dose: 3 ml Amoxicillin/Clavulanate Potassium (Augmentin 875 Mg-125 Mg Tab) 1 tab PO Q12 [facility] PRN Reason: Protocol Last Admin: 11/13/17 10:14 Dose: 1 tab Anastrozole (Arimidex 1 Mg Tab) 1 mg PO DAILY [facility] Last Admin: 11/13/17 10:14 Dose: 1 mg Aspirin (Ecotrin) 325 mg PO DAILY [facility] Last Admin: 11/13/17 10:14 Dose: 325 mg Atorvastatin Calcium (Lipitor) 40 mg PO DAILY [facility] Enoxaparin Sodium (Lovenox) 40 mg SC DAILY [facility] PRN Reason: Protocol Last Admin: 11/13/17 10:13 Dose: 40 mg Gabapentin (Neurontin) 600 mg PO Q8 [facility] Last Admin: 11/13/17 10:12 Dose: 600 mg Guaifenesin (Mucinex La) 600 mg PO Q12 [facility] Last Admin: 11/13/17 10:13 Dose: 600 mg Hydrocortisone Sodium Succinate (Solu-Cortef) 50 mg IV Q12H [facility] Last Admin: 11/13/17 10:12 Dose: 50 mg Sodium Chloride (Sodium Chloride 0.9%) 500 mls @ 500 mls/hr IV .Q1H [facility] Last Admin: 11/12/17 19:30 Dose: 500 mls/hr Lidocaine (Lidoderm) 1 ea TD DAILY PRN PRN Reason: Pain, moderate (4-7) Last Admin: 11/12/17 08:46 Dose: 1 ea Losartan Potassium (Cozaar) 50 mg PO DAILY [facility] Last Admin: 11/12/17 10:45 Dose: 50 mg Methimazole (Tapazole) 15 mg PO DAILY [facility] Last Admin: 11/13/17 10:13 Dose: 15 mg Metoprolol Tartrate (Lopressor) 12.5 mg PO DAILY [facility] Last Admin: 11/12/17 08:49 Dose: 12.5 mg Metronidazole (Flagyl) 500 mg PO Q8 [facility] PRN Reason: Protocol Last Admin: 11/13/17 10:14 Dose: 500 mg Mirtazapine (Remeron) 7.5 mg PO HS [facility] Last Admin: 11/12/17 21:23 Dose: 7.5 mg Oxycodone/Acetaminophen (Percocet 5/325 Mg Tab) 2 tab PO Q6 PRN PRN Reason: Pain, severe (8-10) Last Admin: 11/11/17 20:45 Dose: 2 tab Pantoprazole Sodium (Protonix Ec Tab) 40 mg PO DAILY [facility] Last Admin: 11/13/17 10:12 Dose: 40 mg Roflumilast (Daliresp) 500 mcg PO DAILY [facility] Last Admin: 11/13/17 10:14 Dose: 500 mcg - Labs Labs: 11/13/17 04:19 11/13/17 04:19 PT 11.1 Seconds (9.8-13.1) 11/10/17 17:32 INR 1.0 (0.9-1.2) 11/10/17 17:32 APTT 20.7 Seconds (25.6-37.1) L 11/10/17 17:32 - Constitutional Appears: Chronically Ill Pt on High Flow Oxygen - Head Exam Head Exam: NORMAL INSPECTION, NORMOCEPHALIC - Eye Exam Eye Exam: EOMI, Normal appearance Pupil Exam: NORMAL ACCOMODATION - ENT Exam ENT Exam: Mucous Membranes Dry, Normal External Ear Exam - Neck Exam Neck Exam: Full ROM. absent: Meningismus - Respiratory Exam Respiratory Exam: Accessory Muscle Use, Decreased Breath Sounds, Rhonchi better air entery compared to yesterday , + wheezing - Cardiovascular Exam Cardiovascular Exam: REGULAR RHYTHM, +S1, +S2 - GI/Abdominal Exam GI & Abdominal Exam: Soft, Normal Bowel Sounds. minimal lower abd Tenderness - Extremities Exam Extremities Exam: Normal Capillary Refill. absent: Pedal Edema Additional comments: Right arm lymphedema Lower ext ecchymosis - Back Exam Back Exam: absent: CVA tenderness (L), CVA tenderness (R) - Neurological Exam Neurological Exam: Alert, Oriented x3 - Psychiatric Exam Psychiatric exam: Normal Affect, Normal Mood - Skin Skin Exam: Dry, Normal Color, Warm Assessment and Plan - Assessment and Plan (Free Text) Assessment: 67 y/o female with multiple chronic conditions - COPD, CHF, Hyperthyroidism, Hx of Breast CA s/p mastectomy , Chronic Right Lymphedema, was brought in because of SOB - found to be in resp failure due to CHF and COPD exacerbation. Patient was admitted to ICU- placed on Bipap, started on IV diuretics and IV Steroids. 1. Acute Hypercapneic Hypoxic Respiratory Failure on Chronic Resp Failure sec to COPD and CHF exacerbation - Pt was admitted to ICU - started on Bipap- changed to High Flow Oxygen 30 liter 30% FiO2 - cont Duonebs - d/c IV diuretics due to hypotension - on Hydrocortisone IV - Pulm consulted - Dr Benz - ECHO: pending reading (2) Acute exacerbation of CHF (congestive heart failure) systolic and diastolic Dysfunction, EF 40 % ( 2017) - Echo -Hold diuretics for now due to hypotension after pt had sevral diarrhea episodes -hold Toprol, Losartan 3) Acute COPD exacerbation -Continue Duonebs - cont Hydrocortisone - cont PO Augmentin - cont Daliresp 4. Mild Troponin Elevation prob sec to Demand Ischemia from Resp Failure Cardio consulted- Dr Lopez cont ASA, Statin 5. C Diff Colitis Stool + for antigen however neg toxin , however since pt is symptomatic - has diarrhea and lower abd pain, empirically started PO Flagyl will cont to monitor 6) Hyperthyroidism -TSH low - increased Methimazole to 15 mg daily rpt TSH 7) HTN - pt became hy potensive due to several episodes of diarrhea hold antihypertensives for now (8) DVT prophylaxis Lovenox
[2017-11-13] MEDS: Oxycodone/Acetaminophen 5/325 mg Tab PO PRN (11:51)
--- NOTE | 2017-11-13 12:58 | CP.CCUPN ---
CCU Subjective - Physician Review Events Since Last Encounter (Free Text): 11/13/17 12:56 Clinically better, BP is better, had low BP yesterday when she had diarrhea and was on lasix, IVF 1000 cc was given DIarrhea is better Stil has mils SOB, better CCU Objective - Vital Signs / Intake & Output Vital Signs (Last 4 hours): Vital Signs Temp Pulse Resp BP Pulse Ox 11/13/17 12:00 98.2 F 92 H 47 H 109/70 92 L 11/13/17 11:58 19 11/13/17 10:00 83 16 111/62 97 Intake and Output (Last 8hrs): Intake & Output 11/12/17 11/13/17 11/13/17 22:59 06:59 14:59 Intake Total 1740 0 240 Output Total 420 Balance 1320 0 240 Weight 126 lb Intake: IV 1500 0 0 Oral 240 240 Output: Urine 50 Urine, Voided 50 Stool 120 Urine/Stool Mix 250 Other: # Voids Urine, Voided 1 # Bowel Movements 2 1 2 - Physical Exam Narrative Physical Exam (Free Text): 11/13/17 12:57 P/E Neck: No JVD Lungs: Ronchi, bilateral Abdomen: mild lower abdomen: tender, no RT , ext; no edema heart: No gallop - Medications Active Medications: Active Medications Generic Name Dose Route Start Last Admin Trade Name Freq PRN Reason Stop Dose Admin Acetaminophen 650 mg 11/10/17 20:15 11/11/17 13:52 Tylenol 325mg Tab PO 650 mg Q6 PRN Administration Pain, Mild (1-3)/headache Albuterol Sulfate 2.5 mg 11/11/17 08:55 Albuterol 0.083% Inhal Aby (2.5 Mg/3 Ml) Ud INH RQ4 PRN Shortness of Breath Albuterol/Ipratropium 3 ml 11/10/17 20:00 11/13/17 11:00 Duoneb 3 Mg/0.5 Mg (3 Ml) Ud INH 3 ml RQID [facility]RE[facility] Administration Amoxicillin/Clavulanate Potassium 1 tab 11/11/17 10:15 11/13/17 10:14 Augmentin 875 Mg-125 Mg Tab PO 1 tab Q12 [facility]RE[facility] Administration Protocol Anastrozole 1 mg 11/11/17 09:00 11/13/17 10:14 Arimidex 1 Mg Tab PO 1 mg DAILY [facility] Administration Aspirin 325 mg 11/12/17 09:00 11/13/17 10:14 Ecotrin PO 325 mg DAILY [facility] Administration Atorvastatin Calcium 40 mg 11/14/17 09:00 Lipitor PO DAILY [facility] Enoxaparin Sodium 40 mg 11/11/17 09:00 11/13/17 10:13 Lovenox SC 40 mg DAILY [facility] Administration Protocol Gabapentin 600 mg 11/11/17 01:00 11/13/17 10:12 Neurontin PO 600 mg Q8 [facility] Administration Guaifenesin 600 mg 11/10/17 21:00 11/13/17 10:13 Mucinex La PO 600 mg Q12 [facility] Administration Hydrocortisone Sodium Succinate 50 mg 11/11/17 10:15 11/13/17 10:12 Solu-Cortef IV 50 mg Q12H [facility] Administration Sodium Chloride 500 mls @ 500 mls/hr 11/12/17 19:30 11/12/17 19:30 Sodium Chloride 0.9% IV 500 mls/hr .Q1H [facility] Administration Lidocaine 1 ea 11/10/17 19:55 11/12/17 08:46 Lidoderm TD 1 ea DAILY PRN Administration Pain, moderate (4-7) Losartan Potassium 50 mg 11/12/17 10:15 11/12/17 10:45 Cozaar PO 50 mg DAILY [facility] Administration Methimazole 15 mg 11/12/17 08:38 11/13/17 10:13 Tapazole PO 15 mg DAILY [facility] Administration Metoprolol Tartrate 12.5 mg 11/11/17 09:00 11/12/17 08:49 Lopressor PO 12.5 mg DAILY [facility] Administration Metronidazole 500 mg 11/12/17 18:30 11/13/17 10:14 Flagyl PO 500 mg Q8 [facility] Administration Protocol Mirtazapine 7.5 mg 11/11/17 22:00 11/12/17 21:23 Remeron PO 7.5 mg HS [facility] Administration Oxycodone/Acetaminophen 2 tab 11/10/17 19:55 11/13/17 11:51 Percocet 5/325 Mg Tab PO 2 tab Q6 PRN Administration Pain, severe (8-10) Pantoprazole Sodium 40 mg 11/11/17 09:00 11/13/17 10:12 Protonix Ec Tab PO 40 mg DAILY [facility] Administration Roflumilast 500 mcg 11/11/17 09:00 11/13/17 10:14 Daliresp PO 500 mcg DAILY [facility] Administration - Patient Studies Lab Studies: Microbiology Studies 11/10/17 15:00 Blood Culture - Preliminary Blood NO GROWTH AFTER 48 HOURS 11/10/17 00:40 MRSA Culture (Admit) - Final Naris MRSA NOT DETECTED Lab Studies 11/13/17 11/13/17 11/12/17 Range/Units 04:19 04:19 16:24 WBC 4.7 L (4.8-10.8) K/uL RBC 4.44 (3.80-5.20) Mil/uL Hgb 12.5 (12.0-16.0) g/dL Hct 38.5 (34.0-47.0) % MCV 86.7 (81.0-99.0) fl MCH 28.1 (27.0-31.0) pg MCHC 32.5 L (33.0-37.0) g/dL RDW 18.3 H (11.5-14.5) % Plt Count 231 (130-400) K/uL Sodium 138 (132-148) mmol/l Potassium 3.1 L (3.6-5.0) MMOL/L Chloride 101 (98-107) mmol/L Carbon Dioxide 30 (22-30) mmol/L Anion Gap 10 (10-20) BUN 26 H (7-17) mg/dl Creatinine 0.6 L (0.7-1.2) mg/dl Est GFR ( Amer) > 60 Est GFR (Non-Af Amer) > 60 Random Glucose 97 (65-105) mg/dL Calcium 7.9 L (8.4-10.2) mg/dL Urine Color (YELLOW) Urine Clarity (Clear) Urine pH (5.0-8.0) Ur Specific [place] (1.003-1.030) Urine Protein (NEGATIVE) mg/dL Urine Glucose (UA) (Normal) mg/dL Urine Ketones (NEGATIVE) mg/dL Urine Blood (NEGATIVE) Urine Nitrate (NEGATIVE) Urine Bilirubin (NEGATIVE) Urine Urobilinogen (0.2-1.0) mg/dL Ur Leukocyte Esterase (Negative) Ben/uL Urine RBC (Auto) (0-3) /hpf Urine Microscopic WBC (0-5) /hpf Ur Squamous Epith Cells (0-5) /hpf Urine Bacteria (<OCC) Hyaline Casts (0-2) /hpf C. difficile Ag & Toxin Positive antigen (NEGATIVE) 11/12/17 Range/Units 14:48 WBC (4.8-10.8) K/uL RBC (3.80-5.20) Mil/uL Hgb (12.0-16.0) g/dL Hct (34.0-47.0) % MCV (81.0-99.0) fl MCH (27.0-31.0) pg MCHC (33.0-37.0) g/dL RDW (11.5-14.5) % Plt Count (130-400) K/uL Sodium (132-148) mmol/l Potassium (3.6-5.0) MMOL/L Chloride (98-107) mmol/L Carbon Dioxide (22-30) mmol/L Anion Gap (10-20) BUN (7-17) mg/dl Creatinine (0.7-1.2) mg/dl Est GFR ( Amer) Est GFR (Non-Af Amer) Random Glucose (65-105) mg/dL Calcium (8.4-10.2) mg/dL Urine Color Straw (YELLOW) Urine Clarity Clear (Clear) Urine pH 7.0 (5.0-8.0) Ur Specific [place] 1.009 (1.003-1.030) Urine Protein Negative (NEGATIVE) mg/dL Urine Glucose (UA) Neg (Normal) mg/dL Urine Ketones Negative (NEGATIVE) mg/dL Urine Blood Negative (NEGATIVE) Urine Nitrate Negative (NEGATIVE) Urine Bilirubin Negative (NEGATIVE) Urine Urobilinogen 0.2-1.0 (0.2-1.0) mg/dL Ur Leukocyte Esterase Trace (Negative) Ben/uL Urine RBC (Auto) 2 (0-3) /hpf Urine Microscopic WBC 4 (0-5) /hpf Ur Squamous Epith Cells 1 (0-5) /hpf Urine Bacteria Few H (<OCC) Hyaline Casts 3-5 H (0-2) /hpf C. difficile Ag & Toxin (NEGATIVE) Laboratory Results - last 24 hr 11/12/17 11/12/17 11/13/17 14:48 16:24 04:19 WBC RBC Hgb Hct MCV MCH MCHC RDW Plt Count Sodium 138 Potassium 3.1 L Chloride 101 Carbon Dioxide 30 Anion Gap 10 BUN 26 H Creatinine 0.6 L Est GFR ( Amer) > 60 Est GFR (Non-Af Amer) > 60 Random Glucose 97 Calcium 7.9 L Urine Color Straw Urine Clarity Clear Urine pH 7.0 Ur Specific [place] 1.009 Urine Protein Negative Urine Glucose (UA) Neg Urine Ketones Negative Urine Blood Negative Urine Nitrate Negative Urine Bilirubin Negative Urine Urobilinogen 0.2-1.0 Ur Leukocyte Esterase Trace Urine RBC (Auto) 2 Urine Microscopic WBC 4 Ur Squamous Epith Cells 1 Urine Bacteria Few H Hyaline Casts 3-5 H C. difficile Ag & Toxin Positive antigen 11/13/17 04:19 WBC 4.7 L RBC 4.44 Hgb 12.5 Hct 38.5 MCV 86.7 MCH 28.1 MCHC 32.5 L RDW 18.3 H Plt Count 231 Sodium Potassium Chloride Carbon Dioxide Anion Gap BUN Creatinine Est GFR ( Amer) Est GFR (Non-Af Amer) Random Glucose Calcium Urine Color Urine Clarity Urine pH Ur Specific [place] Urine Protein Urine Glucose (UA) Urine Ketones Urine Blood Urine Nitrate Urine Bilirubin Urine Urobilinogen Ur Leukocyte Esterase Urine RBC (Auto) Urine Microscopic WBC Ur Squamous Epith Cells Urine Bacteria Hyaline Casts C. difficile Ag & Toxin Critical Care Progress Note - Nutrition Nutrition: Nutrition Category Date Time Status Heart Healthy Diet [DIET] Diets 11/13/17 Lunch Active Assessment/Plan - Assessment and Plan (Free Text) Assessment: 1. Acute Hypercapneic Hypoxic Respiratory Failure due to COPD exacerbation. - On HFNL - was on Bipap- - cont Duonebs - IV Diuretics discontinued, BP was low and no pulm congestion Given 500 cc NS bolus - on Hydrocortisone IV, - - ECHO 2. 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 Abd discomfort with slight lower abd tenderness Had diarrhea, Improving C-Diff antigen positive but negative for toxin, flagyl was started, as pt does have diarrhea cont PPI 4 ) Hyperthyroidism -TSH low - will increase Methimazole to 15 mg daily 5) Hypotension: Due to multiple meds and diuretics Dc lasix and Losartan BP improved - cont Toprol 6-Hypokalemia De to lsix and diarrhea Replaced (7) DVT prophylaxis Lovenox
--- NOTE | 2017-11-13 18:40 | CARD ---
APPROVED REPORT EXAM: LIMITED Two-dimensional and M-mode echocardiogram. Other Information Quality : PoorRhythm : NSR Technically limited study due to Very Poor Echo Window. INDICATION Congestive Heart Failure COPD Mitral Valve MV E Mpepjqye22.0cm/sMV DECEL [id number] A Zwnbccrl82.5cm/s MV TGC12hrB/A ratio0.9MVA (PHT)2.84cm2 TDI Lateral E' Peak V6.44cm/sMedial E' Peak V3.99cm/sE/Lateral E'7.8 E/Medial E'12.5 LEFT VENTRICLE The left ventricle is normal size. There is borderline to mild concentric left ventricular hypertrophy. The left ventricular function is normal. The left ventricular ejection fraction is within the normal range. The Ejection Fraction is 60-65%. There is normal LV segmental wall motion. Transmitral Doppler flow pattern is Grade I-abnormal relaxation pattern. RIGHT VENTRICLE The right ventricle is normal size. The right ventricle is mildly hypertrophied. The right ventricular systolic function is normal. ATRIA The left atrium is mildly dilated. The right atrium is borderline dilated. AORTIC VALVE The aortic valve is not well visualized. No aortic regurgitation is present. There is no aortic valvular stenosis. MITRAL VALVE The mitral valve is thickened but opens well. There is no mitral valve stenosis. Mitral regurgitation is trace to mild. TRICUSPID VALVE The tricuspid valve leaflets are thickened , but open well. There is trace tricuspid regurgitation. There is no tricuspid valve stenosis. PULMONIC VALVE The pulmonic valve is not well visualized. There is no pulmonic valvular regurgitation. GREAT VESSELS Not visualized The IVC is normal in size and collapses >50% with inspiration. PERICARDIAL EFFUSION The pericardium appears normal. <Conclusion> The left ventricular function is normal. The left ventricular ejection fraction is within the normal range. The Ejection Fraction is 60-65%. Transmitral Doppler flow pattern is Grade I-abnormal relaxation pattern. Mitral regurgitation is trace to mild.
[2017-11-14 05:33] LABS: EOS % 0.1 % (0.0-4.0); HEMOGLOBIN 12.1 g/dL (12.0-16.0); LYMPH # 0.7 K/uL (1.0-4.3); LYMPH % 15.7 % (20.0-40.0); MEAN CELL VOLUME 87.1 fl (81.0-99.0); MEAN CORPUSCULAR HEMOGLOBIN 28.1 pg (27.0-31.0); MEAN CORPUSCULAR HGB CONC 32.3 g/dL (33.0-37.0); MEAN PLATELET VOLUME 7.3 fl (7.2-11.7); MONO # 0.4 K/uL (0.0-0.8); MONO % 8.4 % (0.0-10.0); NEUT # 3.3 K/uL (1.8-7.0); NEUT % 75.8 % (50.0-75.0); RBC 4.3 Mil/uL (3.80-5.20); RED CELL DISTRIBUTION WIDTH 18.1 % (11.5-14.5); WHITE BLOOD COUNT 4.3 K/uL (4.8-10.8)
[2017-11-14 06:02] LABS: BLOOD UREA NITROGEN 22 mg/dl (7-17); CALCIUM 8.8 mg/dL (8.4-10.2); GFR NON-AFRICAN AMERICAN > 60
--- NOTE | 2017-11-14 06:57 | CP.PCM.PN ---
Subjective - Date & Time of Evaluation Date of Evaluation: 11/14/17 Time of Evaluation: 08:00 - Subjective Subjective: Patient was seen and examined at bedside with Dr. Benz. Patient was lying comfortably in bed and reports consistent lower crampy abdominal pain associated with nausea and loose stool. Patient states she had 5 bowel movements yesterday, loose in caliber. She states that she is breathing comfortably and has not had an episode of chest tightness since the weekend. She denies chest pain, shortness of breath, and vomiting. Patient's Chest xray demonstrates improvement in the right lobe. Objective - Vital Signs/Intake and Output Vital Signs (last 24 hours): Temp Pulse Resp BP Pulse Ox 98.2 F 66 16 137/66 95 11/14/17 04:00 11/14/17 06:00 11/14/17 06:00 11/14/17 06:00 11/14/17 06:00 Intake and Output: 11/13/17 11/14/17 18:59 06:59 Intake Total 460 0 Output Total 250 Balance 460 -250 - Medications Medications: Current Medications Acetaminophen (Tylenol 325mg Tab) 650 mg PO Q6 PRN PRN Reason: Pain, Mild (1-3)/headache Last Admin: 11/11/17 13:52 Dose: 650 mg Albuterol Sulfate (Albuterol 0.083% Inhal Aby (2.5 Mg/3 Ml) Ud) 2.5 mg INH RQ4 PRN PRN Reason: Shortness of Breath Albuterol/Ipratropium (Duoneb 3 Mg/0.5 Mg (3 Ml) Ud) 3 ml INH RQID [facility] Last Admin: 11/13/17 19:07 Dose: 3 ml Amoxicillin/Clavulanate Potassium (Augmentin 875 Mg-125 Mg Tab) 1 tab PO Q12 [facility] PRN Reason: Protocol Last Admin: 11/13/17 21:35 Dose: 1 tab Anastrozole (Arimidex 1 Mg Tab) 1 mg PO DAILY [facility] Last Admin: 11/13/17 10:14 Dose: 1 mg Aspirin (Ecotrin) 325 mg PO DAILY [facility] Last Admin: 11/13/17 10:14 Dose: 325 mg Atorvastatin Calcium (Lipitor) 40 mg PO DAILY [facility] Enoxaparin Sodium (Lovenox) 40 mg SC DAILY [facility] PRN Reason: Protocol Last Admin: 11/13/17 10:13 Dose: 40 mg Gabapentin (Neurontin) 600 mg PO Q8 [facility] Last Admin: 11/14/17 00:05 Dose: 600 mg Guaifenesin (Mucinex La) 600 mg PO Q12 [facility] Last Admin: 11/13/17 21:35 Dose: 600 mg Hydrocortisone Sodium Succinate (Solu-Cortef) 50 mg IV Q12H [facility] Last Admin: 11/13/17 21:34 Dose: 50 mg Sodium Chloride (Sodium Chloride 0.9%) 500 mls @ 500 mls/hr IV .Q1H [facility] Last Admin: 11/12/17 19:30 Dose: 500 mls/hr Lidocaine (Lidoderm) 1 ea TD DAILY PRN PRN Reason: Pain, moderate (4-7) Last Admin: 11/12/17 08:46 Dose: 1 ea Losartan Potassium (Cozaar) 50 mg PO DAILY [facility] Last Admin: 11/12/17 10:45 Dose: 50 mg Methimazole (Tapazole) 15 mg PO DAILY [facility] Last Admin: 11/13/17 10:13 Dose: 15 mg Metoprolol Tartrate (Lopressor) 12.5 mg PO DAILY [facility] Last Admin: 11/12/17 08:49 Dose: 12.5 mg Metronidazole (Flagyl) 500 mg PO Q8 [facility] PRN Reason: Protocol Last Admin: 11/14/17 00:05 Dose: 500 mg Mirtazapine (Remeron) 7.5 mg PO HS [facility] Last Admin: 11/13/17 21:34 Dose: 7.5 mg Ondansetron HCl (Zofran Inj) 4 mg IVP Q4 PRN PRN Reason: Nausea/Vomiting Last Admin: 11/13/17 19:35 Dose: 4 mg Oxycodone/Acetaminophen (Percocet 5/325 Mg Tab) 2 tab PO Q6 PRN PRN Reason: Pain, severe (8-10) Last Admin: 11/13/17 11:51 Dose: 2 tab Pantoprazole Sodium (Protonix Ec Tab) 40 mg PO DAILY [facility] Last Admin: 11/13/17 10:12 Dose: 40 mg Roflumilast (Daliresp) 500 mcg PO DAILY [facility] Last Admin: 11/13/17 10:14 Dose: 500 mcg - Labs Labs: 11/14/17 05:12 11/14/17 05:12 PT 11.1 Seconds (9.8-13.1) 11/10/17 17:32 INR 1.0 (0.9-1.2) 11/10/17 17:32 APTT 20.7 Seconds (25.6-37.1) L 11/10/17 17:32 - Constitutional Appears: Non-toxic - Head Exam Head Exam: NORMAL INSPECTION - ENT Exam ENT Exam: Mucous Membranes Moist - Neck Exam Neck Exam: Normal Inspection. absent: Lymphadenopathy, Thyromegaly - Respiratory Exam Respiratory Exam: Decreased Breath Sounds (decreased breath sounds globally.), Wheezes (bilateral expirtaory wheezing present. ), NORMAL BREATHING PATTERN. absent: Rales, Rhonchi, Stridor - Cardiovascular Exam Cardiovascular Exam: REGULAR RHYTHM, +S1, +S2 (Distant heart sounds) - GI/Abdominal Exam GI & Abdominal Exam: Soft, Tenderness (lower abdominal tenderness), Normal Bowel Sounds. absent: Guarding, Rigid, Rebound - Extremities Exam Extremities Exam: Pedal Edema (bilateral chronic edema and scattered echymosis ; RUE lymphedema, minimal drainage) - Neurological Exam Neurological Exam: Alert, Awake, Oriented x3 - Psychiatric Exam Psychiatric exam: Normal Affect - Skin Skin Exam: Normal Color Assessment and Plan (1) Acute exacerbation of chronic obstructive pulmonary disease (COPD) Assessment & Plan: Hold Romiflulast due to diarrheal symptoms Continue current management: albuterol prn, albuterol/ipatropium QID, amox-clav Q12h. Continue high flow nasal oxygen Continue moderate dose of steroids. Status: Acute (2) Hyperthyroidism Assessment & Plan: Continue current management: Methimazole 15mg Status: Chronic (3) HTN (hypertension) Assessment & Plan: Continue current management. 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
[2017-11-14] MEDS: Albuterol-Ipratrop 3 mg / 0.5 (3 ml) UD INH SCH ×4 (08:09→19:55)
[2017-11-14] MEDS: Amoxicillin-Clav 875-125 mg Tab PO SCH ×2 (09:05→22:01)
[2017-11-14] MEDS: Enoxaparin 40 mg Syringe SC SCH (09:07)
[2017-11-14] MEDS: Aspirin 325 mg EC Tablets PO SCH (09:07)
[2017-11-14] MEDS: guaiFENesin 600 mg ER Tab PO SCH ×2 (09:07→22:00)
[2017-11-14] MEDS: Pantoprazole 40 mg EC Tab PO SCH (09:08)
[2017-11-14] MEDS: methIMAzole 5 MG TAB PO SCH (09:08)
--- NOTE | 2017-11-14 12:24 | CP.PCM.PN ---
Subjective - Date & Time of Evaluation Date of Evaluation: 11/14/17 Time of Evaluation: 12:00 - Subjective Subjective: Pt is on High Flow Oxygen had 4-5 total diarrhea yesterday no diarrhea since [place] last night mild lower abd discomfort- however better tolerated PO diet denies CP cough, SOB but better has mild wheezing Objective - Vital Signs/Intake and Output Vital Signs (last 24 hours): Temp Pulse Resp BP Pulse Ox 98.3 F 78 17 142/76 94 L 11/14/17 12:00 11/14/17 12:00 11/14/17 12:00 11/14/17 12:00 11/14/17 12:00 Intake and Output: 11/14/17 11/14/17 06:59 18:59 Intake Total 0 300 Output Total 250 200 Balance -250 100 - Medications Medications: Current Medications Acetaminophen (Tylenol 325mg Tab) 650 mg PO Q6 PRN PRN Reason: Pain, Mild (1-3)/headache Last Admin: 11/11/17 13:52 Dose: 650 mg Albuterol Sulfate (Albuterol 0.083% Inhal Aby (2.5 Mg/3 Ml) Ud) 2.5 mg INH RQ4 PRN PRN Reason: Shortness of Breath Albuterol/Ipratropium (Duoneb 3 Mg/0.5 Mg (3 Ml) Ud) 3 ml INH RQID [facility] Last Admin: 11/14/17 08:09 Dose: 3 ml Amoxicillin/Clavulanate Potassium (Augmentin 875 Mg-125 Mg Tab) 1 tab PO Q12 [facility] PRN Reason: Protocol Last Admin: 11/14/17 09:05 Dose: 1 tab Anastrozole (Arimidex 1 Mg Tab) 1 mg PO DAILY [facility] Last Admin: 11/14/17 09:33 Dose: 1 mg Aspirin (Ecotrin) 325 mg PO DAILY [facility] Last Admin: 11/14/17 09:07 Dose: 325 mg Atorvastatin Calcium (Lipitor) 40 mg PO DAILY [facility] Last Admin: 11/14/17 09:07 Dose: 40 mg Cholestyramine Resin (Questran) 4 gm PO DAILY [facility] Enoxaparin Sodium (Lovenox) 40 mg SC DAILY [facility] PRN Reason: Protocol Last Admin: 11/14/17 09:07 Dose: 40 mg Gabapentin (Neurontin) 600 mg PO Q8 [facility] Last Admin: 11/14/17 09:08 Dose: 600 mg Guaifenesin (Mucinex La) 600 mg PO Q12 [facility] Last Admin: 11/14/17 09:07 Dose: 600 mg Hydrocortisone Sodium Succinate (Solu-Cortef) 50 mg IV Q12H [facility] Last Admin: 11/14/17 09:33 Dose: 50 mg Sodium Chloride (Sodium Chloride 0.9%) 500 mls @ 500 mls/hr IV .Q1H [facility] Last Admin: 11/12/17 19:30 Dose: 500 mls/hr Lidocaine (Lidoderm) 1 ea TD DAILY PRN PRN Reason: Pain, moderate (4-7) Last Admin: 11/12/17 08:46 Dose: 1 ea Losartan Potassium (Cozaar) 50 mg PO DAILY [facility] Methimazole (Tapazole) 15 mg PO DAILY [facility] Last Admin: 11/14/17 09:08 Dose: 15 mg Metoprolol Tartrate (Lopressor) 6.25 mg PO Q12 [facility] Metronidazole (Flagyl) 500 mg PO Q8 [facility] PRN Reason: Protocol Last Admin: 11/14/17 09:07 Dose: 500 mg Mirtazapine (Remeron) 7.5 mg PO HS [facility] Last Admin: 11/13/17 21:34 Dose: 7.5 mg Ondansetron HCl (Zofran Inj) 4 mg IVP Q4 PRN PRN Reason: Nausea/Vomiting Last Admin: 11/13/17 19:35 Dose: 4 mg Oxycodone/Acetaminophen (Percocet 5/325 Mg Tab) 2 tab PO Q6 PRN PRN Reason: Pain, severe (8-10) Last Admin: 11/13/17 11:51 Dose: 2 tab Pantoprazole Sodium (Protonix Ec Tab) 40 mg PO DAILY [facility] Last Admin: 11/14/17 09:08 Dose: 40 mg Roflumilast (Daliresp) 500 mcg PO DAILY [facility] Last Admin: 11/13/17 10:14 Dose: 500 mcg - Labs Labs: 11/14/17 05:12 11/14/17 05:12 PT 11.1 Seconds (9.8-13.1) 11/10/17 17:32 INR 1.0 (0.9-1.2) 11/10/17 17:32 APTT 20.7 Seconds (25.6-37.1) L 11/10/17 17:32 - Constitutional Appears: Chronically Ill Pt on High Flow Oxygen - Head Exam Head Exam: NORMAL INSPECTION, NORMOCEPHALIC - Eye Exam Eye Exam: EOMI, Normal appearance Pupil Exam: NORMAL ACCOMMODATION - ENT Exam ENT Exam: Mucous Membranes Dry, Normal External Ear Exam - Neck Exam Neck Exam: Full ROM. absent: Meningismus - Respiratory Exam Respiratory Exam: Accessory Muscle Use, Decreased Breath Sounds, Rhonchi better air entry compared to yesterday , mild wheezing - Cardiovascular Exam Cardiovascular Exam: REGULAR RHYTHM, +S1, +S2 - GI/Abdominal Exam GI & Abdominal Exam: Soft, Normal Bowel Sounds. minimal lower abd Tenderness - Extremities Exam Extremities Exam: Normal Capillary Refill. absent: Pedal Edema Additional comments: Right arm lymphedema Lower ext ecchymosis - Back Exam Back Exam: absent: CVA tenderness (L), CVA tenderness (R) - Neurological Exam Neurological Exam: Alert, Oriented x3 - Psychiatric Exam Psychiatric exam: Normal Affect, Normal Mood - Skin Skin Exam: Dry, Normal Color, Warm Assessment and Plan - Assessment and Plan (Free Text) Assessment: 67 y/o female with multiple chronic conditions - COPD, CHF, Hyperthyroidism, Hx of Breast CA s/p mastectomy , Chronic Right Lymphedema, was brought in because of SOB - found to be in resp failure due to CHF and COPD exacerbation. Patient was admitted to ICU- placed on Bipap, started on IV diuretics and IV Steroids. 1. Acute Hypercapneic Hypoxic Respiratory Failure on Chronic Resp Failure sec to COPD and CHF exacerbation - Pt was admitted to ICU - started on Bipap- changed to High Flow Oxygen 30 liter/30% FiO2 - cont Duonebs - d/c IV diuretics due to hypotension - on Hydrocortisone IV - Pulm consulted - Dr Benz - ECHO: 60% EF (2) Acute exacerbation of CHF (congestive heart failure) systolic and diastolic Dysfunction, EF 40 % ( 2017) - Echo -Hold diuretics for now due to hypotension after pt had several diarrhea episodes -restart Toprol, Losartan 3) Acute COPD exacerbation -Continue Duonebs - cont Hydrocortisone - cont PO Augmentin - d/c Daliresp as this may also cause abd pain , diarrhea 4. Mild Troponin Elevation prob sec to Demand Ischemia from Resp Failure Cardio consulted- Dr Lopez cont ASA, Statin 5. C Diff Colitis Stool + for antigen however neg toxin , however since pt is symptomatic - has diarrhea and lower abd pain, empirically started PO Flagyl will cont to monitor 6) Hyperthyroidism -TSH low - increased Methimazole to 15 mg daily rpt TSH prior to d/c 7) HTN - pt became hypotensive due to several episodes of diarrhea- placed on hold however BP going up again , will restart (8) DVT prophylaxis Lovenox
[2017-11-14] MEDS: Cholestyramine 4 gm/Pkt UD PO SCH (13:21)
--- NOTE | 2017-11-14 21:35 | CARD ---
APPROVED REPORT EKG Measurement Heart [id number] <Conclusion> Sinus tachycardia Left ventricular hypertrophy with repolarization abnormality Inferior infarct, age undetermined Abnormal ECG
--- NOTE | 2017-11-15 00:02 | PN ---
DATE: 11/14/2017 CRITICAL CARE PROGRESS NOTE LOCATION: The patient in ICU bed 425. TIME SPENT: 35 minutes. SUBJECTIVE: The patient is seen and evaluated at the bedside. Case discussed in ICU rounds in the morning. Past medical, surgical, social and family history reviewed. A 67-year-old female with chronic obstructive pulmonary disease, systolic as well as diastolic heart failure and multiple other comorbidities including bilateral metastatic breast CA to shoulder, status post chemo and radiation treatment eight years ago, status post humerus resection, chronic lymphedema right upper extremity, hypertension, hyperthyroidism, anemia of chronic disease, supraventricular tachycardia, osteoporosis, right cephalic vein thrombosis, peripheral neuropathy and anxiety disease, status post cervical and lumbar fusion in 2007, cholecystectomy and tracheostomy placed on 07/08/2016 and removed on 11/04/2016, admitted with shortness of breath secondary to worsening of heart failure, noted to be in shortness of breath with chest congestion, now noted to have C. difficile from diarrhea with stool positive for C. difficile antigen, on Flagyl. Overnight on BiPAP, tolerated well. This morning, alert and awake, follows commands appropriate. Reports feeling better. Reportedly had five bowel movements yesterday, loose in caliber, not mixed with blood. Shortness of breath is better. No further vomiting. PHYSICAL EXAMINATION: VITAL SIGNS: Temperature 97.9, heart rate 71, blood pressure 140/92, mean arterial pressure 108, respiratory rate 12, oxygen saturation 96%. Intake 2340, output 2070, positive balance 270. Weight 126 pounds. HEAD, EYES, EARS, NOSE AND THROAT: Pupils are equal, round, reactive to light and accommodation. Extraocular muscles are intact. Conjunctivae pale. Sclerae white. HEART: Rhythm regular. S1, S2 normal. CHEST: Bilateral breath sounds, diminished in intensity. Scattered rhonchi. ABDOMEN: Bowel sounds present. Soft and nontender. EXTREMITIES: Pedal edema, bilateral chronic edema on the right upper extremity. Scattered ecchymosis. NEURO EXAMINATION: Nonfocal. CURRENT MEDICATIONS: Include Tylenol 650 mg every 6 hours p.r.n., albuterol/Atrovent inhalation 3 mL four times a day, amoxicillin plus clavulanic one tablet every 12 hours, Arimidex 1 mg daily, Ecotrin 325 mg daily, Lipitor 20 mg daily, Lovenox 40 mg subcu daily, Neurontin 600 mg every 8 hours, Mucinex LA 600 mg p.o. every 12 hours, hydrocortisone 50 mg IV every 12 hours, Lidoderm patch daily, Cozaar 50 mg p.o. daily, Tapazole 15 mg p.o. daily, Lopressor 12.5 mg p.o. daily, Flagyl 500 mg p.o. every 8 hours, Remeron 7.5 mg p.o. at bedtime, Zofran 4 mg IV every 4 hours p.r.n., oxycodone with Tylenol 5/325 mg two tablets every 6 hours p.r.n., Protonix 40 mg daily, . LABORATORY DATA: WBC 4.3, hemoglobin 12.1, hematocrit 37.5, platelet count of 239, neutrophils 75.8, lymphocytes 15.7, monocytes 8.4. PT 11.1, INR 1, PTT 20.7. ABG: The pH of 7.48, pCO2 of 48, pO2 of 68, saturation 96.6 on FiO2 of 30% with 30 liters high-flow nasal oxygen. SMA-7: Sodium 138, potassium 4, chloride 103, CO2 of 29, blood urea nitrogen 22, creatinine 0.6, random glucose 128, calcium 8.8. ProBNP 3990. TSH 0.28, T4 of 4.42. Urinalysis negative. Stool leukocytes negative. Stool C. difficile antigen positive. Microbiology: Blood culture, no growth. MRSA nasal smear negative. Chest x-ray: No acute infiltrate noted. Echocardiogram on 11/12/2017 done shows the left ventricular function is normal, left ventricular ejection fraction is within the normal range, EF of 60% to 65%, mitral regurgitation. IMPRESSION: 1. Neuro: Alert and awake, follows commands appropriate. 2. Pulmonary: Admitted with hypercapnic hypoxic respiratory failure, on high-flow nasal oxygen at night to nasal cannula 4 liters in the morning, on DuoNeb 3 mL every 6 hours. Chest x-ray with no acute infiltrate. On hydrocortisone IV every 12 hours. 3. Cardiac: History of systolic and diastolic heart failure. Repeat echo report noted with a normal left ventricular function and normal ejection fraction. 4. Gastrointestinal: Clostridium difficile colitis, on Flagyl. Still with some diarrhea. We will add Questran powder one pocket every 12 hours. History of hyperthyroidism, on methimazole 15 mg daily. Continue deep venous thrombosis and gastrointestinal prophylaxis. 5. Hematology/oncology: History of for metastatic cancer of breast, status post bilateral mastectomy, on Arimidex. Kuldip Jenkins MD MTDTash
[2017-11-15] MEDS: Albuterol 0.083% Inhal Sol (2.5 mg/3 mL) UD INH PRN (00:57)
[2017-11-15 05:34] LABS: HEMOGLOBIN 12.2 g/dL (12.0-16.0); MEAN CORPUSCULAR HEMOGLOBIN 28.6 pg (27.0-31.0); MEAN CORPUSCULAR HGB CONC 32.5 g/dL (33.0-37.0); RBC 4.28 Mil/uL (3.80-5.20); RED CELL DISTRIBUTION WIDTH 18.3 % (11.5-14.5)
[2017-11-15 05:39] LABS: BLOOD UREA NITROGEN 20 mg/dl (7-17); CALCIUM 9.2 mg/dL (8.4-10.2); GFR NON-AFRICAN AMERICAN > 60
--- NOTE | 2017-11-15 06:54 | CP.PCM.PN ---
Subjective - Date & Time of Evaluation Date of Evaluation: 11/15/17 Time of Evaluation: 08:30 - Subjective Subjective: Patient was seen and examined with Dr. Benz at bedside. She was laying down comfortably without complaints. She reports that over night she had chest pain, rated 5/10 and non radiating, which she attributes to her cough. She reports that she did not "spit out" any sputum. This morning patient reports she had a headache but states that it is subsiding as she was given tylenol. She states that the Chest pain she had overnight is now resolved and she has not had any cough this morning. She reports good appetite. Patient states that she had several bowl movements yesterday (around 7) that were formed associated with RLQ tenderness. She reports that the RLQ tenderness has decreased from two days ago and is now described as an intermittent presentation occurring with her bowel movements. She reports minimal sleep and that the mirtazipine does not seem to be helping. Objective - Vital Signs/Intake and Output Vital Signs (last 24 hours): Temp Pulse Resp BP Pulse Ox 97.8 F 72 16 120/68 94 L 11/15/17 04:00 11/15/17 04:00 11/15/17 05:23 11/15/17 04:00 11/15/17 04:00 Intake and Output: 11/14/17 11/15/17 18:59 06:59 Intake Total 1100 80 Output Total 700 Balance 400 80 - Medications Medications: Current Medications Acetaminophen (Tylenol 325mg Tab) 650 mg PO Q6 PRN PRN Reason: Pain, Mild (1-3)/headache Last Admin: 11/15/17 05:42 Dose: 650 mg Albuterol Sulfate (Albuterol 0.083% Inhal Aby (2.5 Mg/3 Ml) Ud) 2.5 mg INH RQ4 PRN PRN Reason: Shortness of Breath Last Admin: 11/15/17 00:57 Dose: 2.5 mg Albuterol/Ipratropium (Duoneb 3 Mg/0.5 Mg (3 Ml) Ud) 3 ml INH RQID [facility] Last Admin: 11/14/17 19:55 Dose: 3 ml Amoxicillin/Clavulanate Potassium (Augmentin 875 Mg-125 Mg Tab) 1 tab PO Q12 [facility] PRN Reason: Protocol Last Admin: 11/14/17 22:01 Dose: 1 tab Anastrozole (Arimidex 1 Mg Tab) 1 mg PO DAILY [facility] Last Admin: 11/14/17 09:33 Dose: 1 mg Aspirin (Ecotrin) 325 mg PO DAILY [facility] Last Admin: 11/14/17 09:07 Dose: 325 mg Atorvastatin Calcium (Lipitor) 40 mg PO DAILY [facility] Last Admin: 11/14/17 09:07 Dose: 40 mg Cholestyramine Resin (Questran) 4 gm PO DAILY [facility] Last Admin: 11/14/17 13:21 Dose: 4 gm Enoxaparin Sodium (Lovenox) 40 mg SC DAILY [facility] PRN Reason: Protocol Last Admin: 11/14/17 09:07 Dose: 40 mg Gabapentin (Neurontin) 600 mg PO Q8 [facility] Last Admin: 11/15/17 01:30 Dose: 600 mg Guaifenesin (Mucinex La) 600 mg PO Q12 [facility] Last Admin: 11/14/17 22:00 Dose: 600 mg Guaifenesin (Robitussin) 100 mg PO Q6 PRN PRN Reason: Cough Hydrocortisone Sodium Succinate (Solu-Cortef) 50 mg IV Q12H [facility] Last Admin: 11/14/17 22:34 Dose: 50 mg Sodium Chloride (Sodium Chloride 0.9%) 500 mls @ 500 mls/hr IV .Q1H [facility] Last Admin: 11/12/17 19:30 Dose: 500 mls/hr Lidocaine (Lidoderm) 1 ea TD DAILY PRN PRN Reason: Pain, moderate (4-7) Last Admin: 11/12/17 08:46 Dose: 1 ea Losartan Potassium (Cozaar) 50 mg PO DAILY [facility] Last Admin: 11/14/17 13:21 Dose: 50 mg Methimazole (Tapazole) 15 mg PO DAILY [facility] Last Admin: 11/14/17 09:08 Dose: 15 mg Metoprolol Tartrate (Lopressor) 6.25 mg PO Q12 [facility] Last Admin: 11/14/17 22:02 Dose: 6.25 mg Metronidazole (Flagyl) 500 mg PO Q8 [facility] PRN Reason: Protocol Last Admin: 11/15/17 01:30 Dose: 500 mg Mirtazapine (Remeron) 7.5 mg PO HS [facility] Last Admin: 11/14/17 22:03 Dose: 7.5 mg Ondansetron HCl (Zofran Inj) 4 mg IVP Q4 PRN PRN Reason: Nausea/Vomiting Last Admin: 11/13/17 19:35 Dose: 4 mg Pantoprazole Sodium (Protonix Ec Tab) 40 mg PO DAILY [facility] Last Admin: 11/14/17 09:08 Dose: 40 mg Roflumilast (Daliresp) 500 mcg PO DAILY [facility] Last Admin: 11/13/17 10:14 Dose: 500 mcg - Labs Labs: 11/15/17 04:30 11/15/17 04:30 PT 11.1 Seconds (9.8-13.1) 11/10/17 17:32 INR 1.0 (0.9-1.2) 11/10/17 17:32 APTT 20.7 Seconds (25.6-37.1) L 11/10/17 17:32 - Constitutional Appears: Well, Non-toxic, No Acute Distress - Head Exam Head Exam: NORMAL INSPECTION - ENT Exam ENT Exam: Mucous Membranes Moist - Neck Exam Neck Exam: Normal Inspection. absent: Lymphadenopathy, Tenderness - Respiratory Exam Respiratory Exam: Decreased Breath Sounds (breath sounds diminished globally), Wheezes (prolonged expiratory wheeze bilaterally. Low pitch polyphonic wheeze present bilaterally. ), NORMAL BREATHING PATTERN. absent: Rales, Rhonchi, Respiratory Distress, Stridor - Cardiovascular Exam Cardiovascular Exam: REGULAR RHYTHM, +S1. absent: Tachycardia, Clicks (distant heart sounds), Diastolic murmur, Gallop, JVD, RRR, Rubs - GI/Abdominal Exam GI & Abdominal Exam: Soft, Tenderness (mild RLQ tenderness on palpation), Normal Bowel Sounds. absent: Firm, Guarding, Rigid, Rebound - Extremities Exam Extremities Exam: Normal Inspection. absent: Calf Tenderness, Joint Swelling, Tenderness Additional comments: + RUE lymphedema. +2 dorsalis pedis pulses bilaterally. + 2 Tibial pulses bilaterally. - Neurological Exam Neurological Exam: Alert, Awake, Oriented x3 - Psychiatric Exam Psychiatric exam: Normal Affect, Normal Mood - Skin Skin Exam: Normal Color Assessment and Plan (1) Acute exacerbation of chronic obstructive pulmonary disease (COPD) Assessment & Plan: Hold Roflumilast due to diarrheal symptoms. Continue Albuterol prn, Albuterol/ Ipatropium, Amox-Clav Q12h Continue moderate dose of steroids Continue high flow nasal oxygen Use Mucomist 20 % 2 ml BID Status: Acute (2) Diarrhea Assessment & Plan: C.Diff Ag positive but toxin is negative Continue prophylactic Flagyl Hold Cholestyramine given the abdominal discomfort GI consulted. Status: Acute (3) Hyperthyroidism Assessment & Plan: Continue current management: Methimazole 15mg D. Status: Chronic (4) HTN (hypertension) Assessment & Plan: Continue current regimen. 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
[2017-11-15] MEDS: Albuterol-Ipratrop 3 mg / 0.5 (3 ml) UD INH SCH ×4 (07:59→19:28)
--- NOTE | 2017-11-15 08:23 | CP.CCUPN ---
Addendum entered and electronically signed by Chase Simpson MD 11/15/17 12:14: Pt on chronic abx: ciprofloxacin 500 mg bid for prophylaxis against cellulitis I&O last 24 hrs: intake 1180ml output: 700 ml with balance of 480ml Hiflow: increased to 40% O2 after review of ABG Original Note: <Chase Simpson - Last Filed: 11/15/17 10:02> CCU Subjective - Physician Review Events Since Last Encounter (Free Text): 11/15/17 08:38 Pt seen and examined at bedside. Slowly tolerating PO diet. She reports improvement with SOB on hi flow O2. Reports cough but nonproductive. Last BM was approximately 01:00, which she reports as more formed and not diffuse diarrhea. She has remained afebrile and saturating at 94% on hi flow O2. CCU Objective - Vital Signs / Intake & Output Vital Signs (Last 4 hours): Vital Signs Temp Pulse Resp BP Pulse Ox 11/15/17 08:00 97.8 F 64 16 147/73 96 11/15/17 07:57 17 11/15/17 06:00 64 16 130/75 94 L 11/15/17 05:23 16 Intake and Output (Last 8hrs): Intake & Output 11/14/17 11/15/17 11/15/17 22:59 06:59 14:59 Intake Total 480 Output Total 300 Balance 180 Intake: Oral 480 Output: Urine 300 Urine, Voided 300 Other: # Voids Urine, Voided 1 1 # Bowel Movements 1 1 - Physical Exam Physical Exam Limitations: Negative for: Altered Mental Status Head: Positive for: Atraumatic Extroacular Muscles: Positive for: EOMI Mouth: Positive for: Moist Mucous Membranes Respiratory/Chest: Positive for: Wheezes, Rhonchi. Negative for: Accessory Muscle Use Cardiovascular: Positive for: Regular Rate and Rhythm Abdomen: Positive for: Normal Bowel Sounds. Negative for: Tenderness, Distention Breast/Axillary: Positive for: Other (s/p mastectomy) Upper Extremity: Positive for: Other (R: chronic lymphedema) Lower Extremity: Positive for: Normal Inspection. Negative for: Edema Neurological: Positive for: CN II-XII Intact, Speech Normal Skin: Positive for: Warm Psychiatric: Positive for: Alert, Oriented x 3, Normal Insight, Normal Concentration - Medications Active Medications: Active Medications Generic Name Dose Route Start Last Admin Trade Name Freq PRN Reason Stop Dose Admin Acetaminophen 650 mg 11/10/17 20:15 11/15/17 05:42 Tylenol 325mg Tab PO 650 mg Q6 PRN Administration Pain, Mild (1-3)/headache Albuterol Sulfate 2.5 mg 11/11/17 08:55 11/15/17 00:57 Albuterol 0.083% Inhal Aby (2.5 Mg/3 Ml) Ud INH 2.5 mg RQ4 PRN Administration Shortness of Breath Albuterol/Ipratropium 3 ml 11/10/17 20:00 11/15/17 07:59 Duoneb 3 Mg/0.5 Mg (3 Ml) Ud INH 3 ml RQID ANDREAS Administration Amoxicillin/Clavulanate Potassium 1 tab 11/11/17 10:15 11/14/17 22:01 Augmentin 875 Mg-125 Mg Tab PO 1 tab Q12 ANDREAS Administration Protocol Anastrozole 1 mg 11/11/17 09:00 11/14/17 09:33 Arimidex 1 Mg Tab PO 1 mg DAILY ANDREAS Administration Aspirin 325 mg 11/12/17 09:00 11/14/17 09:07 Ecotrin PO 325 mg DAILY ANDREAS Administration Atorvastatin Calcium 40 mg 11/14/17 09:00 11/14/17 09:07 Lipitor PO 40 mg DAILY ANDREAS Administration Cholestyramine Resin 4 gm 11/14/17 12:00 11/14/17 13:21 Questran PO 4 gm DAILY ANDREAS Administration Enoxaparin Sodium 40 mg 11/11/17 09:00 11/14/17 09:07 Lovenox SC 40 mg DAILY ANDREAS Administration Protocol Gabapentin 600 mg 11/11/17 01:00 11/15/17 01:30 Neurontin PO 600 mg Q8 ANDREAS Administration Guaifenesin 600 mg 11/10/17 21:00 11/14/17 22:00 Mucinex La PO 600 mg Q12 ANDREAS Administration Guaifenesin 100 mg 11/14/17 22:04 Robitussin PO Q6 PRN Cough Hydrocortisone Sodium Succinate 50 mg 11/11/17 10:15 11/14/17 22:34 Solu-Cortef IV 50 mg Q12H ANDREAS Administration Sodium Chloride 500 mls @ 500 mls/hr 11/12/17 19:30 11/12/17 19:30 Sodium Chloride 0.9% IV 500 mls/hr .Q1H ANDREAS Administration Lidocaine 1 ea 11/10/17 19:55 11/12/17 08:46 Lidoderm TD 1 ea DAILY PRN Administration Pain, moderate (4-7) Losartan Potassium 50 mg 11/14/17 12:00 11/14/17 13:21 Cozaar PO 50 mg DAILY ANDREAS Administration Methimazole 15 mg 11/12/17 08:38 11/14/17 09:08 Tapazole PO 15 mg DAILY ANDREAS Administration Metoprolol Tartrate 6.25 mg 11/14/17 12:15 11/14/17 22:02 Lopressor PO 6.25 mg Q12 ANDREAS Administration Metronidazole 500 mg 11/12/17 18:30 11/15/17 01:30 Flagyl PO 500 mg Q8 ANDREAS Administration Protocol Mirtazapine 7.5 mg 11/11/17 22:00 11/14/17 22:03 Remeron PO 7.5 mg HS ANDREAS Administration Ondansetron HCl 4 mg 11/13/17 19:20 11/13/17 19:35 Zofran Inj IVP 4 mg Q4 PRN Administration Nausea/Vomiting Pantoprazole Sodium 40 mg 11/11/17 09:00 11/14/17 09:08 Protonix Ec Tab PO 40 mg DAILY ANDREAS Administration Roflumilast 500 mcg 11/11/17 09:00 11/13/17 10:14 Daliresp PO 500 mcg DAILY ANDREAS Administration - Patient Studies Lab Studies: Microbiology Studies 11/10/17 15:00 Blood Culture - Preliminary Blood NO GROWTH AFTER 4 DAYS Lab Studies 11/15/17 11/15/17 Range/Units 04:30 04:30 WBC 9.0 D (4.8-10.8) K/uL RBC 4.28 (3.80-5.20) Mil/uL Hgb 12.2 (12.0-16.0) g/dL Hct 37.6 (34.0-47.0) % MCV 88.0 (81.0-99.0) fl MCH 28.6 (27.0-31.0) pg MCHC 32.5 L (33.0-37.0) g/dL RDW 18.3 H (11.5-14.5) % Plt Count 237 (130-400) K/uL Sodium 139 (132-148) mmol/l Potassium 4.0 (3.6-5.0) MMOL/L Chloride 103 (98-107) mmol/L Carbon Dioxide 29 (22-30) mmol/L Anion Gap 11 (10-20) BUN 20 H (7-17) mg/dl Creatinine 0.8 (0.7-1.2) mg/dl Est GFR ( Amer) > 60 Est GFR (Non-Af Amer) > 60 Random Glucose 141 H (65-105) mg/dL Calcium 9.2 (8.4-10.2) mg/dL Laboratory Results - last 24 hr 11/15/17 11/15/17 04:30 04:30 WBC 9.0 D RBC 4.28 Hgb 12.2 Hct 37.6 MCV 88.0 MCH 28.6 MCHC 32.5 L RDW 18.3 H Plt Count 237 Sodium 139 Potassium 4.0 Chloride 103 Carbon Dioxide 29 Anion Gap 11 BUN 20 H Creatinine 0.8 Est GFR ( Amer) > 60 Est GFR (Non-Af Amer) > 60 Random Glucose 141 H Calcium 9.2 Review of Systems - Breasts Breasts: As Per HPI - Cardiovascular Cardiovascular: absent: Chest Pain, Chest Pain at Rest - Respiratory Respiratory: Cough, Dyspnea, Wheezing. absent: Hemoptysis - Gastrointestinal Gastrointestinal: Abdominal Pain (at RLQ) - Genitourinary Genitourinary: As Per HPI - Neurological Neurological: As Per HPI - Psychiatric Psychiatric: As Per HPI Critical Care Progress Note - Nutrition Nutrition: Nutrition Category Date Time Status Heart Healthy Diet [DIET] Diets 11/13/17 Lunch Active Assessment/Plan - Assessment and Plan (Free Text) Assessment: 67 yo F with pmhx of COPD, CHF, hyperthyroid, history of breast cancer s/p mastectomy and chronic R upper extremity lymphedema Plan: Acute hypercapnic hypoxic respiratory failure secondary to COPD and CHF exacerbation. -Hi Flow NC -duoneb QID -d/c Hydrocortisone q12hr; start solu-medrol 60 mg q8hr for today. -Augmentin Q12Hr -Dr. Benz on board: recommendations appreciated -Monitor for respiratory function; progression of tapering -f/u ABG CHF: systolic and diastolic -diuretic held 2/2 hypotension -BP currently stable -ECHO: EF 60% with normal L ventricular function -monitor vitals; reassess to resume diuretic. Diarrhea -c. Diff antigen positive; toxin negative -prophylactic treatment: flagyl -Continue with Questran, bile acid suppression which may help with diarrhea -Diarrhea improved to more formed stools -bcx neg x 4 days -monitor bowel movements -consider d/c of contact isolation -f/u O/P, stool culture Persistent lower abdominal pain -GI consulted: recommendations appreciated Hyperthyroid -low TSH, methimazole was increased to 15 mg -repeat TSH Mild elevation in troponin -0.0530-->0.1460 --> 0.1120 -Dr. Lopez on board: recommendations appreciated -ASA, statin h/o: Breast cancer s/p mastectomy with chronic R upper extremity lymphedema -Arimidex -keep R upper extremity elevated -monitor for neurologic/functional changes DVT prophylaxis -Lovenox Case dw Dr. Camacho Simpson MD PGY2 <Harvey Sauer - Last Filed: 11/15/17 14:34> CCU Objective - Vital Signs / Intake & Output Vital Signs (Last 4 hours): Vital Signs Temp Pulse Resp BP Pulse Ox 11/15/17 12:00 97.6 F 92 H 19 140/70 95 11/15/17 11:15 16 Intake and Output (Last 8hrs): Intake & Output 11/14/17 11/15/17 11/15/17 22:59 06:59 14:59 Intake Total 480 400 Output Total 300 100 Balance 180 300 Intake: Oral 480 400 Output: Urine 300 100 Urine, Voided 300 100 Other: # Voids Urine, Voided 1 1 # Bowel Movements 1 1 1 - Medications Active Medications: Active Medications Generic Name Dose Route Start Last Admin Trade Name Freq PRN Reason Stop Dose Admin Acetaminophen 650 mg 11/10/17 20:15 11/15/17 05:42 Tylenol 325mg Tab PO 650 mg Q6 PRN Administration Pain, Mild (1-3)/headache Acetylcysteine 2 ml 11/15/17 20:00 Acetylcysteine 20% INH RBID ANDREAS Albuterol Sulfate 2.5 mg 11/11/17 08:55 11/15/17 00:57 Albuterol 0.083% Inhal Aby (2.5 Mg/3 Ml) Ud INH 2.5 mg RQ4 PRN Administration Shortness of Breath Albuterol/Ipratropium 3 ml 11/10/17 20:00 11/15/17 11:09 Duoneb 3 Mg/0.5 Mg (3 Ml) Ud INH 3 ml RQID ANDREAS Administration Amoxicillin/Clavulanate Potassium 1 tab 11/11/17 10:15 11/15/17 08:30 Augmentin 875 Mg-125 Mg Tab PO 1 tab Q12 ANDREAS Administration Protocol Anastrozole 1 mg 11/11/17 09:00 11/15/17 08:29 Arimidex 1 Mg Tab PO 1 mg DAILY ANDREAS Administration Aspirin 325 mg 11/12/17 09:00 11/15/17 08:31 Ecotrin PO 325 mg DAILY ANDREAS Administration Atorvastatin Calcium 40 mg 11/14/17 09:00 11/15/17 08:34 Lipitor PO 40 mg DAILY ANDREAS Administration Cholestyramine Resin 4 gm 11/14/17 12:00 11/15/17 08:32 Questran PO 4 gm DAILY ANDREAS Administration Enoxaparin Sodium 40 mg 11/11/17 09:00 11/15/17 08:35 Lovenox SC 40 mg DAILY ANDREAS Administration Protocol Gabapentin 600 mg 11/11/17 01:00 11/15/17 08:32 Neurontin PO 600 mg Q8 ANDREAS Administration Guaifenesin 600 mg 11/10/17 21:00 11/15/17 08:35 Mucinex La PO 600 mg Q12 ANDREAS Administration Guaifenesin 100 mg 11/14/17 22:04 Robitussin PO Q6 PRN Cough Sodium Chloride 500 mls @ 500 mls/hr 11/12/17 19:30 11/12/17 19:30 Sodium Chloride 0.9% IV 500 mls/hr .Q1H ANDREAS Administration Lidocaine 1 ea 11/10/17 19:55 11/12/17 08:46 Lidoderm TD 1 ea DAILY PRN Administration Pain, moderate (4-7) Losartan Potassium 50 mg 11/14/17 12:00 11/15/17 08:30 Cozaar PO 50 mg DAILY ANDREAS Administration Methimazole 15 mg 11/12/17 08:38 11/15/17 08:32 Tapazole PO 15 mg DAILY ANDREAS Administration Methylprednisolone 60 mg 11/15/17 11:15 Solu-Medrol IV Q8H ANDREAS Metoprolol Tartrate 6.25 mg 11/14/17 12:15 11/15/17 08:35 Lopressor PO 6.25 mg Q12 ANDREAS Administration Metronidazole 500 mg 11/12/17 18:30 11/15/17 08:34 Flagyl PO 500 mg Q8 ANDREAS Administration Protocol Mirtazapine 7.5 mg 11/11/17 22:00 11/14/17 22:03 Remeron PO 7.5 mg HS ANDREAS Administration Ondansetron HCl 4 mg 11/13/17 19:20 11/13/17 19:35 Zofran Inj IVP 4 mg Q4 PRN Administration Nausea/Vomiting Pantoprazole Sodium 40 mg 11/11/17 09:00 11/15/17 08:36 Protonix Ec Tab PO 40 mg DAILY ANDREAS Administration Roflumilast 500 mcg 11/11/17 09:00 11/13/17 10:14 Daliresp PO 500 mcg DAILY ANDREAS Administration - Patient Studies Lab Studies: Microbiology Studies 11/12/17 16:24 Ova and Parasite Concentrate Exam - Final Stool 11/12/17 16:24 Stool Culture - Final Stool NO SALMONELLA, SHIGELLA OR CAMPYLOBACTER ISOLATED. 11/10/17 15:00 Blood Culture - Preliminary Blood NO GROWTH AFTER 4 DAYS Lab Studies 11/15/17 11/15/17 11/15/17 Range/Units 11:35 04:30 04:30 WBC 9.0 D (4.8-10.8) K/uL RBC 4.28 (3.80-5.20) Mil/uL Hgb 12.2 (12.0-16.0) g/dL Hct 37.6 (34.0-47.0) % MCV 88.0 (81.0-99.0) fl MCH 28.6 (27.0-31.0) pg MCHC 32.5 L (33.0-37.0) g/dL RDW 18.3 H (11.5-14.5) % Plt Count 237 (130-400) K/uL pCO2 45 (35-45) mm/Hg pO2 57 L (80-100) mm/Hg HCO3 29.1 H (21-28) mmol/L ABG pH 7.44 (7.35-7.45) ABG Total CO2 32.0 H (22-28) mmol/L ABG O2 Saturation 93.7 L (95-98) % ABG O2 Content 16.2 (15-23) ML/dL ABG Base Excess 5.6 H (-2.0-3.0) mmol/L ABG Hemoglobin 12.8 (11.7-17.4) g/dL ABG Carboxyhemoglobin 2.3 H (0.5-1.5) % POC ABG HHb (Measured) 6.1 H (0.0-5.0) % ABG Methemoglobin 1.7 (0.0-3.0) % ABG O2 Capacity 17.3 (16-24) mL/dL Tawanda Test Yes A-a O2 Difference 101.0 mm/Hg Hgb O2 Saturation 90.0 L (95.0-98.0) % FiO2 30.0 % Sodium 139 (132-148) mmol/l Potassium 4.0 (3.6-5.0) MMOL/L Chloride 103 (98-107) mmol/L Carbon Dioxide 29 (22-30) mmol/L Anion Gap 11 (10-20) BUN 20 H (7-17) mg/dl Creatinine 0.8 (0.7-1.2) mg/dl Est GFR ( Amer) > 60 Est GFR (Non-Af Amer) > 60 Random Glucose 141 H (65-105) mg/dL Calcium 9.2 (8.4-10.2) mg/dL Laboratory Results - last 24 hr 11/15/17 11/15/17 11/15/17 04:30 04:30 11:35 WBC 9.0 D RBC 4.28 Hgb 12.2 Hct 37.6 MCV 88.0 MCH 28.6 MCHC 32.5 L RDW 18.3 H Plt Count 237 pCO2 45 pO2 57 L HCO3 29.1 H ABG pH 7.44 ABG Total CO2 32.0 H ABG O2 Saturation 93.7 L ABG O2 Content 16.2 ABG Base Excess 5.6 H ABG Hemoglobin 12.8 ABG Carboxyhemoglobin 2.3 H POC ABG HHb (Measured) 6.1 H ABG Methemoglobin 1.7 ABG O2 Capacity 17.3 Tawanda Test Yes A-a O2 Difference 101.0 Hgb O2 Saturation 90.0 L FiO2 30.0 Sodium 139 Potassium 4.0 Chloride 103 Carbon Dioxide 29 Anion Gap 11 BUN 20 H Creatinine 0.8 Est GFR ( Amer) > 60 Est GFR (Non-Af Amer) > 60 Random Glucose 141 H Calcium 9.2 Critical Care Progress Note - Nutrition Nutrition: Nutrition Category Date Time Status Heart Healthy Diet [DIET] Diets 11/13/17 Lunch Active Attending/Attestation - Attestation I have personally seen and examined this patient.: Yes I have fully participated in the care of the patient.: Yes I have reviewed all pertinent clinical information: Yes Notes (Text): 11/15/17 14:25 Today: Wednesday, November 15, 2017 The patient was Seen/interviewed and examined by me at the bedside during ICU round, Medical records reviewed and Management issues were discussed and formulated with the house staff. Events reviewed I have reviewed all the relevant clinical, laboratory, hemodynamic, radiographic data and medications I concur with resident's assessment and plan of care as transcribed in Dr. Simpson note. Acute exacerbations of chronic obstructive pulmonary disease likely precipitated by Viral URI or Acute Bronchitis. Mild improvement of respiratory status with treatment of COPD. Mild Troponin Elevation prob sec to Demand Ischemia from Resp Failure Suplemental O2 with 40% via HFNC, monitor O2 saturation Increase IV solumedrol to 60 mg IV Q 8H C/W ALBUTEROL/Atrovent Nebs QID and Q6h PRN PRN diuresis to optimize fluid status Strict I&O, daily Wt Even fluid balance Continue Roflumilast (Daliresp) 500 mcg PO DAILY Code status: Full Code Total critical care time 41 minutes
[2017-11-15] MEDS: Amoxicillin-Clav 875-125 mg Tab PO SCH ×2 (08:30→21:09)
[2017-11-15] MEDS: Aspirin 325 mg EC Tablets PO SCH (08:31)
[2017-11-15] MEDS: methIMAzole 5 MG TAB PO SCH (08:32)
[2017-11-15] MEDS: Cholestyramine 4 gm/Pkt UD PO SCH (08:32)
[2017-11-15] MEDS: Enoxaparin 40 mg Syringe SC SCH (08:35)
[2017-11-15] MEDS: guaiFENesin 600 mg ER Tab PO SCH ×2 (08:35→21:10)
[2017-11-15] MEDS: Pantoprazole 40 mg EC Tab PO SCH (08:36)
--- NOTE | 2017-11-15 11:33 | CP.PCM.PN ---
Subjective - Date & Time of Evaluation Date of Evaluation: 11/15/17 Time of Evaluation: 10:00 - Subjective Subjective: Patient was seen and examined at bedside. She continues to be on Hi Flow Oxygen and is saturating well at rest, but still desaturates when she turns in bed or with exertion. Continues to have nonproductive cough but does c/o congestion. Having normal BM early this morning, no further diarrhea since yesterday. Denies cp, headache, n/v, fever, or chills. Objective - Vital Signs/Intake and Output Vital Signs (last 24 hours): Temp Pulse Resp BP Pulse Ox 97.8 F 93 H 16 143/73 96 11/15/17 08:00 11/15/17 08:35 11/15/17 11:15 11/15/17 08:35 11/15/17 08:00 Intake and Output: 11/15/17 11/15/17 06:59 18:59 Intake Total 80 300 Balance 80 300 - Medications Medications: Current Medications Acetaminophen (Tylenol 325mg Tab) 650 mg PO Q6 PRN PRN Reason: Pain, Mild (1-3)/headache Last Admin: 11/15/17 05:42 Dose: 650 mg Acetylcysteine (Acetylcysteine 20%) 2 ml INH RBID ANDREAS Albuterol Sulfate (Albuterol 0.083% Inhal Aby (2.5 Mg/3 Ml) Ud) 2.5 mg INH RQ4 PRN PRN Reason: Shortness of Breath Last Admin: 11/15/17 00:57 Dose: 2.5 mg Albuterol/Ipratropium (Duoneb 3 Mg/0.5 Mg (3 Ml) Ud) 3 ml INH RQID ANDREAS Last Admin: 11/15/17 11:09 Dose: 3 ml Amoxicillin/Clavulanate Potassium (Augmentin 875 Mg-125 Mg Tab) 1 tab PO Q12 ANDREAS PRN Reason: Protocol Last Admin: 11/15/17 08:30 Dose: 1 tab Anastrozole (Arimidex 1 Mg Tab) 1 mg PO DAILY ANDREAS Last Admin: 11/15/17 08:29 Dose: 1 mg Aspirin (Ecotrin) 325 mg PO DAILY [facility] Last Admin: 11/15/17 08:31 Dose: 325 mg Atorvastatin Calcium (Lipitor) 40 mg PO DAILY ANDREAS Last Admin: 11/15/17 08:34 Dose: 40 mg Cholestyramine Resin (Questran) 4 gm PO DAILY [facility] Last Admin: 11/15/17 08:32 Dose: 4 gm Enoxaparin Sodium (Lovenox) 40 mg SC DAILY ANDREAS PRN Reason: Protocol Last Admin: 11/15/17 08:35 Dose: 40 mg Gabapentin (Neurontin) 600 mg PO Q8 [facility] Last Admin: 11/15/17 08:32 Dose: 600 mg Guaifenesin (Mucinex La) 600 mg PO Q12 [facility] Last Admin: 11/15/17 08:35 Dose: 600 mg Guaifenesin (Robitussin) 100 mg PO Q6 PRN PRN Reason: Cough Sodium Chloride (Sodium Chloride 0.9%) 500 mls @ 500 mls/hr IV .Q1H [facility] Last Admin: 11/12/17 19:30 Dose: 500 mls/hr Lidocaine (Lidoderm) 1 ea TD DAILY PRN PRN Reason: Pain, moderate (4-7) Last Admin: 11/12/17 08:46 Dose: 1 ea Losartan Potassium (Cozaar) 50 mg PO DAILY [facility] Last Admin: 11/15/17 08:30 Dose: 50 mg Methimazole (Tapazole) 15 mg PO DAILY [facility] Last Admin: 11/15/17 08:32 Dose: 15 mg Methylprednisolone (Solu-Medrol) 60 mg IV Q8H [facility] Metoprolol Tartrate (Lopressor) 6.25 mg PO Q12 [facility] Last Admin: 11/15/17 08:35 Dose: 6.25 mg Metronidazole (Flagyl) 500 mg PO Q8 ANDREAS PRN Reason: Protocol Last Admin: 11/15/17 08:34 Dose: 500 mg Mirtazapine (Remeron) 7.5 mg PO HS [facility] Last Admin: 11/14/17 22:03 Dose: 7.5 mg Ondansetron HCl (Zofran Inj) 4 mg IVP Q4 PRN PRN Reason: Nausea/Vomiting Last Admin: 11/13/17 19:35 Dose: 4 mg Pantoprazole Sodium (Protonix Ec Tab) 40 mg PO DAILY [facility] Last Admin: 11/15/17 08:36 Dose: 40 mg Roflumilast (Daliresp) 500 mcg PO DAILY [facility] Last Admin: 11/13/17 10:14 Dose: 500 mcg - Labs Labs: 11/15/17 04:30 11/15/17 04:30 PT 11.1 Seconds (9.8-13.1) 11/10/17 17:32 INR 1.0 (0.9-1.2) 11/10/17 17:32 APTT 20.7 Seconds (25.6-37.1) L 11/10/17 17:32 - Additional Findings Additional findings: Physical exam: Constitutional- cooperative, awake, alert Head- NCAT, PERRL Eye- PERRL, EOMI ENT- normal exam, MMM. Neck- normal inspection, supple, no JVD Respiratory- CTAB, diffuse wheezing, scattered rhonchi, no rales Cardiovascular- RRR, +S1, +S2 no MRG GI/Abdominal- normal bowel sounds, Mild tenderness to RLQ, soft, no mass, no hsm Skin- warm, dry Extremities Exam- +1 pitting edema x 4 extremities. normal capillary refill, normal inspection Neurological Exam- alert, awake, oriented Psych- normal mood, normal affect Assessment and Plan - Assessment and Plan (Free Text) Plan: 67 y/o female with multiple chronic conditions - COPD, CHF, Hyperthyroidism, Hx of Breast CA s/p mastectomy , Chronic Right Lymphedema, was brought in because of SOB - found to be in resp failure due to CHF and COPD exacerbation. Patient was admitted to ICU- placed on Bipap, started on IV diuretics and IV Steroids, now saturating well on Hi Raphael O2, slowly improving. 1. Acute Hypercapneic Hypoxic Respiratory Failure on Chronic Resp Failure sec to COPD and CHF exacerbation - Pt was admitted to ICU - started on Bipap- changed to High Flow Oxygen 30 liter/30% FiO2 - cont Duonebs - d/c IV diuretics due to hypotension - on Hydrocortisone IV - Added Mucomyst today due to increased congestion - Pulm consulted - Dr Benz - ECHO: 60% EF (2) Acute exacerbation of CHF (congestive heart failure) systolic and diastolic Dysfunction, EF 40 % ( 2017) - Echo -Hold diuretics for now due to hypotension after pt had several diarrhea episodes -restart Toprol, Losartan 3) Acute COPD exacerbation -Continue Duonebs - cont Hydrocortisone - cont PO Augmentin - d/c Daliresp as this may also cause abd pain , diarrhea 4. Mild Troponin Elevation prob sec to Demand Ischemia from Resp Failure Cardio consulted- Dr Costomiris cont ASA, Statin 5. C Diff Colitis Stool + for antigen however neg toxin , however since pt is symptomatic - has diarrhea and lower abd pain, empirically started PO Flagyl Diarrhea resolved for now Pain still present but improving Continue probiotic will cont to monitor 6) Hyperthyroidism -TSH low - increased Methimazole to 15 mg daily rpt TSH prior to d/c 7) HTN - pt became hypotensive due to several episodes of diarrhea- placed on hold however BP going up again , will restart (8) DVT prophylaxis Lovenox
[2017-11-15 11:51] LABS: ABG ALLEN TEST YES; ARTERIAL BLOOD GAS HCO3 29.1 mmol/L (21-28); ARTERIAL BLOOD GAS HEMOGLOBIN 12.8 g/dL (11.7-17.4); ARTERIAL BLOOD GAS O2 CAPACITY 17.3 mL/dL (16-24); ARTERIAL BLOOD GAS O2 CONTENT 16.2 ML/dL (15-23); ARTERIAL BLOOD GAS O2 SAT 93.7 % (95-98); ARTERIAL BLOOD GAS PCO2 45 mm/Hg (35-45); ARTERIAL BLOOD GAS PH 7.44 (7.35-7.45); ARTERIAL BLOOD GAS PO2 57 mm/Hg (80-100)
[2017-11-15] MEDS: Vancomycin 500 mg (Oral/Rectal USE) PO SCH ×2 (16:18→21:13)
[2017-11-15] MEDS ORDERED: methylPREDNISolone 60 MG in Sodium Chloride 0.9% 50 ML IVPB SCH (17:00)
[2017-11-15] MEDS ORDERED: Oxycodone/Acetaminophen 5/325 mg Tab PO STA (18:57)
[2017-11-15] MEDS: Acetylcysteine 20% Inhal Soln (4ml) INH SCH (19:27)
[2017-11-15] MEDS ORDERED: Sterile Water 10 ML IV ONE (21:21)
[2017-11-16] MEDS: Vancomycin 500 mg (Oral/Rectal USE) PO SCH ×4 (05:48→21:15)
[2017-11-16 06:08] LABS: HEMOGLOBIN 12.3 g/dL (12.0-16.0); MEAN CELL VOLUME 87.9 fl (81.0-99.0); MEAN CORPUSCULAR HEMOGLOBIN 28.5 pg (27.0-31.0); MEAN CORPUSCULAR HGB CONC 32.4 g/dL (33.0-37.0); RBC 4.3 Mil/uL (3.80-5.20); RED CELL DISTRIBUTION WIDTH 18.3 % (11.5-14.5); WHITE BLOOD COUNT 8.8 K/uL (4.8-10.8)
[2017-11-16 06:31] LABS: BLOOD UREA NITROGEN 20 mg/dl (7-17); CALCIUM 8.8 mg/dL (8.4-10.2); GFR NON-AFRICAN AMERICAN > 60
--- NOTE | 2017-11-16 06:53 | CP.PCM.PN ---
Subjective - Date & Time of Evaluation Date of Evaluation: 11/16/17 Time of Evaluation: 08:30 - Subjective Subjective: Patient seen and examined at bedside with Dr. Benz. She is short of breath, on high flow nasal cannula and reports that she was unable to sleep last night. Overnight, she was tachypneic and dyspneic with minimal exertion associated with 8/10 chest pain. She was placed on BiPap last night from 6p.m to 9p.m then switched to High flow nasal cannula of which she felt more comfortable. She reports that this morning she has non-radiating chest discomfort in the center of her chest which gets worse with movement and is not associated with meals. Today, She reports this chest pain occurs every time she has to move. Last BM was last night and was reported as formed stool. She denies fever, chills, nausea, vomiting, and diarrhea. Objective - Vital Signs/Intake and Output Vital Signs (last 24 hours): Temp Pulse Resp BP Pulse Ox 98.8 F 81 16 133/79 97 11/16/17 04:00 11/16/17 06:00 11/16/17 06:00 11/16/17 06:00 11/16/17 06:00 Intake and Output: 11/15/17 11/16/17 18:59 06:59 Intake Total 700 120 Output Total 100 Balance 600 120 - Medications Medications: Current Medications Acetaminophen (Tylenol 325mg Tab) 650 mg PO Q6 PRN PRN Reason: Pain, Mild (1-3)/headache Last Admin: 11/15/17 05:42 Dose: 650 mg Acetylcysteine (Acetylcysteine 20%) 2 ml INH RBID [facility] Last Admin: 11/15/17 19:27 Dose: 2 ml Albuterol Sulfate (Albuterol 0.083% Inhal Aby (2.5 Mg/3 Ml) Ud) 2.5 mg INH RQ4 PRN PRN Reason: Shortness of Breath Last Admin: 11/15/17 00:57 Dose: 2.5 mg Albuterol/Ipratropium (Duoneb 3 Mg/0.5 Mg (3 Ml) Ud) 3 ml INH RQID [facility] Last Admin: 11/15/17 19:28 Dose: 3 ml Amoxicillin/Clavulanate Potassium (Augmentin 875 Mg-125 Mg Tab) 1 tab PO Q12 [facility] PRN Reason: Protocol Last Admin: 11/15/17 21:09 Dose: 1 tab Anastrozole (Arimidex 1 Mg Tab) 1 mg PO DAILY [facility] Last Admin: 11/15/17 08:29 Dose: 1 mg Aspirin (Ecotrin) 325 mg PO DAILY [facility] Last Admin: 11/15/17 08:31 Dose: 325 mg Atorvastatin Calcium (Lipitor) 40 mg PO DAILY [facility] Last Admin: 11/15/17 08:34 Dose: 40 mg Cholestyramine Resin (Questran) 4 gm PO DAILY [facility] Last Admin: 11/15/17 08:32 Dose: 4 gm Dicyclomine HCl (Bentyl) 10 mg PO QID PRN PRN Reason: Pain, moderate (4-7) Last Admin: 11/15/17 16:18 Dose: 10 mg Enoxaparin Sodium (Lovenox) 40 mg SC DAILY [facility] PRN Reason: Protocol Last Admin: 11/15/17 08:35 Dose: 40 mg Gabapentin (Neurontin) 600 mg PO Q8 [facility] Last Admin: 11/16/17 00:27 Dose: 600 mg Guaifenesin (Mucinex La) 600 mg PO Q12 [facility] Last Admin: 11/15/17 21:10 Dose: 600 mg Guaifenesin (Robitussin) 100 mg PO Q6 PRN PRN Reason: Cough Sodium Chloride (Sodium Chloride 0.9%) 500 mls @ 500 mls/hr IV .Q1H [facility] Last Admin: 11/12/17 19:30 Dose: 500 mls/hr Lidocaine (Lidoderm) 1 ea TD DAILY PRN PRN Reason: Pain, moderate (4-7) Last Admin: 11/12/17 08:46 Dose: 1 ea Losartan Potassium (Cozaar) 50 mg PO DAILY [facility] Last Admin: 11/15/17 08:30 Dose: 50 mg Methimazole (Tapazole) 15 mg PO DAILY [facility] Last Admin: 11/15/17 08:32 Dose: 15 mg Methylprednisolone (Solu-Medrol) 60 mg IV Q8H [facility] Last Admin: 11/16/17 05:47 Dose: 60 mg Metoprolol Tartrate (Lopressor) 6.25 mg PO Q12 [facility] Last Admin: 11/15/17 21:09 Dose: 6.25 mg Mirtazapine (Remeron) 7.5 mg PO HS [facility] Last Admin: 11/15/17 21:51 Dose: 7.5 mg Ondansetron HCl (Zofran Inj) 4 mg IVP Q4 PRN PRN Reason: Nausea/Vomiting Last Admin: 11/13/17 19:35 Dose: 4 mg Pantoprazole Sodium (Protonix Ec Tab) 40 mg PO DAILY [facility] Last Admin: 11/15/17 08:36 Dose: 40 mg Roflumilast (Daliresp) 500 mcg PO DAILY [facility] Last Admin: 11/13/17 10:14 Dose: 500 mcg Vancomycin HCl (Vancocin (Oral/Rectal Use)) 125 mg PO Q6 [facility] PRN Reason: Protocol Last Admin: 11/16/17 05:48 Dose: 125 mg - Labs Labs: 11/16/17 04:20 11/16/17 04:20 PT 11.1 Seconds (9.8-13.1) 11/10/17 17:32 INR 1.0 (0.9-1.2) 11/10/17 17:32 APTT 20.7 Seconds (25.6-37.1) L 11/10/17 17:32 - Constitutional Appears: Non-toxic, No Acute Distress, Chronically Ill - Head Exam Head Exam: NORMAL INSPECTION - Eye Exam Eye Exam: Normal appearance - ENT Exam ENT Exam: Mucous Membranes Moist - Neck Exam Neck Exam: Normal Inspection. absent: Lymphadenopathy, Tenderness, Thyromegaly - Respiratory Exam Respiratory Exam: Decreased Breath Sounds, Wheezes (minimal bilateral expiratory wheeze. ). absent: Chest Wall Tenderness, Rales, Respiratory Distress, Stridor - Cardiovascular Exam Cardiovascular Exam: REGULAR RHYTHM, +S1, +S2 (distant heart sounds). absent: Clicks, Diastolic murmur, Murmur - GI/Abdominal Exam GI & Abdominal Exam: Distended (tympanic to percussion and distension possibly due to aerophagia. ), Soft, Tenderness (Lower abdominal tenderness), Hypoactive Bowel Sounds. absent: Guarding, Rigid, Organomegaly, Rebound - Extremities Exam Extremities Exam: Normal Inspection (+2 dorsalis pedis pulse and tibial pulses bilaterally. Chronic skin changes bilateral legs. ) - Neurological Exam Neurological Exam: Alert, Awake, Oriented x3 - Psychiatric Exam Psychiatric exam: Normal Affect. absent: Homicidal Ideation, Normal Mood ( Patient expresses sad feelings sometimes. Denies these feelings today. ), Suicidal Ideation - Skin Skin Exam: Normal Color Assessment and Plan (1) Acute exacerbation of chronic obstructive pulmonary disease (COPD) Assessment & Plan: Continue Acetylcysteine, albuterol prn, Duoneb, amox-clav, salumedrol Continue to hold Roflumilast Oxycodone Q6h prn prescribed due to severe (12/16) chest pain Recommendation for bone scan due to medical history of breast cancer. Status: Acute (2) Depression Assessment & Plan: Patient has depressive symptoms associated with persistent insomnia. Changed Remeron 7.5mg po HS to Remeron 15mg po HS. Status: Acute (3) Diarrhea Assessment & Plan: Continue current regimen: Vancomycin and bentyl Status: Acute (4) Hyperthyroidism Assessment & Plan: Continue Methimazole 15mg po D. Status: Chronic (5) HTN (hypertension) Assessment & Plan: Continue current management. 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
[2017-11-16] MEDS: Acetylcysteine 20% Inhal Soln (4ml) INH SCH ×2 (07:29→19:03)
[2017-11-16] MEDS: Albuterol-Ipratrop 3 mg / 0.5 (3 ml) UD INH SCH ×4 (07:29→19:04)
--- NOTE | 2017-11-16 07:38 | CP.CCUPN ---
<Chase Simpson - Last Filed: 11/16/17 10:53> CCU Subjective - Physician Review Events Since Last Encounter (Free Text): 11/16/17 07:36 Pt seen and examined at bedside. Yesterday evening, while positioning adjustment , patient experienced R sided chest discomfort. Neb treatment was administered but did not significantly improve her symptoms. Pt was then placed on BiPap and percocet, which resolved her chest discomfort. Reported increase in episodes of soft stools overnight. Reports mild improvement with breathing. CCU Objective - Vital Signs / Intake & Output Vital Signs (Last 4 hours): Vital Signs Temp Pulse Resp BP Pulse Ox 11/16/17 07:29 22 11/16/17 06:00 81 16 133/79 97 11/16/17 05:21 13 11/16/17 04:00 98.8 F 84 16 120/64 97 Intake and Output (Last 8hrs): Intake & Output 11/15/17 11/16/17 11/16/17 22:59 06:59 14:59 Intake Total 300 120 Balance 300 120 Intake: Oral 300 120 Other: # Voids Urine, Voided 1 1 # Bowel Movements 1 - Physical Exam Physical Exam Limitations: Negative for: Altered Mental Status Head: Positive for: Atraumatic Extroacular Muscles: Positive for: EOMI Mouth: Positive for: Moist Mucous Membranes Respiratory/Chest: Positive for: Wheezes, Decreased Breath Sounds, Rhonchi. Negative for: Accessory Muscle Use Cardiovascular: Positive for: Regular Rate and Rhythm Abdomen: Positive for: Normal Bowel Sounds. Negative for: Tenderness, Distention Breast/Axillary: Positive for: Other (s/p mastectomy) Upper Extremity: Positive for: Other (R: chronic lymphedema) Lower Extremity: Positive for: Normal Inspection. Negative for: Edema Neurological: Positive for: CN II-XII Intact, Speech Normal Skin: Positive for: Warm Psychiatric: Positive for: Alert, Oriented x 3, Normal Insight, Normal Concentration - Medications Active Medications: Active Medications Generic Name Dose Route Start Last Admin Trade Name Freq PRN Reason Stop Dose Admin Acetaminophen 650 mg 11/10/17 20:15 11/15/17 05:42 Tylenol 325mg Tab PO 650 mg Q6 PRN Administration Pain, Mild (1-3)/headache Acetylcysteine 2 ml 11/15/17 20:00 07/11/18 07:29 Acetylcysteine 20% INH 2 ml RBID [facility]RE[facility] Administration Albuterol Sulfate 2.5 mg 11/11/17 08:55 11/15/17 00:57 Albuterol 0.083% Inhal Aby (2.5 Mg/3 Ml) Ud INH 2.5 mg RQ4 PRN Administration Shortness of Breath Albuterol/Ipratropium 3 ml 11/10/17 20:00 11/16/17 07:29 Duoneb 3 Mg/0.5 Mg (3 Ml) Ud INH 3 ml RQID [facility] Administration Amoxicillin/Clavulanate Potassium 1 tab 11/11/17 10:15 11/15/17 21:09 Augmentin 875 Mg-125 Mg Tab PO 1 tab Q12 [facility] Administration Protocol Anastrozole 1 mg 11/11/17 09:00 11/15/17 08:29 Arimidex 1 Mg Tab PO 1 mg DAILY [facility] Administration Aspirin 325 mg 11/12/17 09:00 11/15/17 08:31 Ecotrin PO 325 mg DAILY [facility] Administration Atorvastatin Calcium 40 mg 11/14/17 09:00 11/15/17 08:34 Lipitor PO 40 mg DAILY [facility] Administration Cholestyramine Resin 4 gm 11/14/17 12:00 11/15/17 08:32 Questran PO 4 gm DAILY [facility] Administration Dicyclomine HCl 10 mg 11/15/17 14:45 11/15/17 16:18 Bentyl PO 10 mg QID PRN Administration Pain, moderate (4-7) Enoxaparin Sodium 40 mg 11/11/17 09:00 11/15/17 08:35 Lovenox SC 40 mg DAILY [facility] Administration Protocol Gabapentin 600 mg 11/11/17 01:00 11/16/17 00:27 Neurontin PO 600 mg Q8 [facility] Administration Guaifenesin 600 mg 11/10/17 21:00 11/15/17 21:10 Mucinex La PO 600 mg Q12 [facility] Administration Guaifenesin 100 mg 11/14/17 22:04 Robitussin PO Q6 PRN Cough Sodium Chloride 500 mls @ 500 mls/hr 11/12/17 19:30 11/12/17 19:30 Sodium Chloride 0.9% IV 500 mls/hr .Q1H [facility] Administration Lidocaine 1 ea 11/10/17 19:55 11/12/17 08:46 Lidoderm TD 1 ea DAILY PRN Administration Pain, moderate (4-7) Losartan Potassium 50 mg 11/14/17 12:00 11/15/17 08:30 Cozaar PO 50 mg DAILY [facility] Administration Methimazole 15 mg 11/12/17 08:38 11/15/17 08:32 Tapazole PO 15 mg DAILY [facility] Administration Methylprednisolone 60 mg 11/15/17 11:15 11/16/17 05:47 Solu-Medrol IV 60 mg Q8H [facility] Administration Metoprolol Tartrate 6.25 mg 11/14/17 12:15 11/15/17 21:09 Lopressor PO 6.25 mg Q12 [facility] Administration Mirtazapine 7.5 mg 11/11/17 22:00 11/15/17 21:51 Remeron PO 7.5 mg HS [facility] Administration Ondansetron HCl 4 mg 11/13/17 19:20 11/13/17 19:35 Zofran Inj IVP 4 mg Q4 PRN Administration Nausea/Vomiting Pantoprazole Sodium 40 mg 11/11/17 09:00 11/15/17 08:36 Protonix Ec Tab PO 40 mg DAILY [facility] Administration Roflumilast 500 mcg 11/11/17 09:00 11/13/17 10:14 Daliresp PO 500 mcg DAILY [facility] Administration Vancomycin HCl 125 mg 11/15/17 16:00 11/16/17 05:48 Vancocin (Oral/Rectal Use) PO 125 mg Q6 [facility] Administration Protocol - Patient Studies Lab Studies: Microbiology Studies 11/10/17 15:00 Blood Culture - Final Blood NO GROWTH AFTER 5 DAYS Gram Stain - Final TEST NOT PERFORMED 11/12/17 16:24 Ova and Parasite Concentrate Exam - Final Stool 11/12/17 16:24 Stool Culture - Final Stool NO SALMONELLA, SHIGELLA OR CAMPYLOBACTER ISOLATED. Lab Studies 11/16/17 11/16/17 11/15/17 Range/Units 04:20 04:20 11:35 WBC 8.8 (4.8-10.8) K/uL RBC 4.30 (3.80-5.20) Mil/uL Hgb 12.3 (12.0-16.0) g/dL Hct 37.8 (34.0-47.0) % MCV 87.9 (81.0-99.0) fl MCH 28.5 (27.0-31.0) pg MCHC 32.4 L (33.0-37.0) g/dL RDW 18.3 H (11.5-14.5) % Plt Count 288 (130-400) K/uL pCO2 45 (35-45) mm/Hg pO2 57 L (80-100) mm/Hg HCO3 29.1 H (21-28) mmol/L ABG pH 7.44 (7.35-7.45) ABG Total CO2 32.0 H (22-28) mmol/L ABG O2 Saturation 93.7 L (95-98) % ABG O2 Content 16.2 (15-23) ML/dL ABG Base Excess 5.6 H (-2.0-3.0) mmol/L ABG Hemoglobin 12.8 (11.7-17.4) g/dL ABG Carboxyhemoglobin 2.3 H (0.5-1.5) % POC ABG HHb (Measured) 6.1 H (0.0-5.0) % ABG Methemoglobin 1.7 (0.0-3.0) % ABG O2 Capacity 17.3 (16-24) mL/dL Tawanda Test Yes A-a O2 Difference 101.0 mm/Hg Hgb O2 Saturation 90.0 L (95.0-98.0) % FiO2 30.0 % Sodium 140 (132-148) mmol/l Potassium 3.8 (3.6-5.0) MMOL/L Chloride 103 (98-107) mmol/L Carbon Dioxide 28 (22-30) mmol/L Anion Gap 13 (10-20) BUN 20 H (7-17) mg/dl Creatinine 0.5 L (0.7-1.2) mg/dl Est GFR ( Amer) > 60 Est GFR (Non-Af Amer) > 60 Random Glucose 169 H (65-105) mg/dL Calcium 8.8 (8.4-10.2) mg/dL Laboratory Results - last 24 hr 11/15/17 11/16/17 11/16/17 11:35 04:20 04:20 WBC 8.8 RBC 4.30 Hgb 12.3 Hct 37.8 MCV 87.9 MCH 28.5 MCHC 32.4 L RDW 18.3 H Plt Count 288 pCO2 45 pO2 57 L HCO3 29.1 H ABG pH 7.44 ABG Total CO2 32.0 H ABG O2 Saturation 93.7 L ABG O2 Content 16.2 ABG Base Excess 5.6 H ABG Hemoglobin 12.8 ABG Carboxyhemoglobin 2.3 H POC ABG HHb (Measured) 6.1 H ABG Methemoglobin 1.7 ABG O2 Capacity 17.3 Tawanda Test Yes A-a O2 Difference 101.0 Hgb O2 Saturation 90.0 L FiO2 30.0 Sodium 140 Potassium 3.8 Chloride 103 Carbon Dioxide 28 Anion Gap 13 BUN 20 H Creatinine 0.5 L Est GFR ( Amer) > 60 Est GFR (Non-Af Amer) > 60 Random Glucose 169 H Calcium 8.8 Review of Systems - Constitutional Constitutional: absent: Fever - Breasts Breasts: As Per HPI - Cardiovascular Cardiovascular: As Per HPI - Respiratory Respiratory: As Per HPI, Cough, Dyspnea, Wheezing, Chest Congestion - Gastrointestinal Gastrointestinal: As Per HPI - Neurological Neurological: As Per HPI - Psychiatric Psychiatric: Abnormal Sleep Pattern Additional comments: 2/2 symptoms of SOB with cough and sputum production. Critical Care Progress Note - Nutrition Nutrition: Nutrition Category Date Time Status Heart Healthy Diet [DIET] Diets 11/13/17 Lunch Active Assessment/Plan - Assessment and Plan (Free Text) Assessment: 67 yo F with pmhx of COPD, CHF, hyperthyroid, history of breast cancer s/p mastectomy and chronic R upper extremity lymphedema admitted for COPD and CHF exacerbation. Plan: Acute hypercapnic hypoxic respiratory failure secondary to COPD and CHF exacerbation. -Hi Flow NC @ 40%FiO2 -Intake: 820 ml; Output: 100 ml; Balance of 720 -duoneb QID -albuterol RQ4 PRN -solu-medrol 60 mg q8hr; continue for total of 72 hours; and begin taper (60 mg q12 x 48 hours followed with 60 mg qDaily and transition to PO) -Acetylcysteine -Augmentin Q12Hr -Dr. Benz on board: recommendations appreciated -Monitor for respiratory function; progression of tapering -f/u ABG, CXR; CMP (2/2 steroids) CHF: systolic and diastolic -diuretic held 2/2 hypotension -BP currently stable -ECHO: EF 60% with normal L ventricular function -monitor vitals; reassess to resume diuretic. -Consider repeat BNP Diarrhea -c. Diff antigen positive; toxin negative -Pt on chronic abx: ciprofloxacin 500 mg bid for prophylaxis against cellulitis -d/c flagyl; start vancomycin per Dr. Pulliam -d/c Questran as it binds to vancomycin -Diarrhea improved to more formed stools -bcx neg x 5 days -O/P, stool culture: neg -monitor bowel movements -f/u C. diff reanalysis Persistent lower abdominal pain -GI consulted: recommendations appreciated; Started Vancomycin, d/c flagyl and questran; start Bentyl Hyperthyroid -low TSH, methimazole was increased to 15 mg -repeat TSH on d/c Mild elevation in troponin -0.0530-->0.1460 --> 0.1120 -Dr. Lopez on board: recommendations appreciated -ASA, statin HTN -Losartan -Metoprolol Chest discomfort -2/2 body movement -sponteneously resolved with respiratory therapy -Per Dr. Benz, consider bone scan due to hx of breast cancer with metastasis to L humeral head. -Percocet PRN pain level at 8/10; intermittent Sleep disturbance -could be 2/2 SOB, cough -Mirtazapine increased to 15 mg -pt denies current depression, SI/HI h/o: Breast cancer s/p mastectomy with chronic R upper extremity lymphedema -Arimidex -keep R upper extremity elevated -monitor for neurologic/functional changes DVT/GI prophylaxis -Lovenox -Pantoprazole Case dw Dr. Tam Simpson MD PGY2 <Wayne Turcios - Last Filed: 11/16/17 17:59> CCU Subjective - Physician Review Subjective (Free Text): Attestation: Patient seen and examined at the bedside with Resident Dr. Soo Simpson; and I agree with his outline of plans and management documented below as discussed on AM rounds reflecting my review of all applicable clinical data, and participation in the care of the patient throughout the day in ICU; today, November 16, 2017. Repeat CXR today shows mild increase pul;m vasc congestion ( my interp), given positve fluid balance over the last 24H, will give Lasix prn.
[2017-11-16] MEDS: Amoxicillin-Clav 875-125 mg Tab PO SCH (08:28)
[2017-11-16] MEDS: Aspirin 325 mg EC Tablets PO SCH (08:32)
[2017-11-16] MEDS: Enoxaparin 40 mg Syringe SC SCH (08:33)
[2017-11-16] MEDS: guaiFENesin 600 mg ER Tab PO SCH ×2 (08:33→21:13)
[2017-11-16] MEDS: Pantoprazole 40 mg EC Tab PO SCH (08:34)
[2017-11-16] MEDS: methIMAzole 5 MG TAB PO SCH (08:35)
--- NOTE | 2017-11-16 09:40 | CP.PCM.PN ---
Subjective - Date & Time of Evaluation Date of Evaluation: 11/16/17 Time of Evaluation: 09:30 - Subjective Subjective: no fever SOB on exertion sl cough on High Flow Oxygen at 30/40% complains of insomnia diarrhea very much improved some mild lower abd discomfort no N/V Objective - Vital Signs/Intake and Output Vital Signs (last 24 hours): Temp Pulse Resp BP Pulse Ox 98.5 F 102 H 17 124/69 97 11/16/17 08:05 11/16/17 08:32 11/16/17 08:05 11/16/17 08:32 11/16/17 08:05 Intake and Output: 11/16/17 11/16/17 06:59 18:59 Intake Total 120 Balance 120 - Medications Medications: Current Medications Acetaminophen (Tylenol 325mg Tab) 650 mg PO Q6 PRN PRN Reason: Pain, Mild (1-3)/headache Last Admin: 11/15/17 05:42 Dose: 650 mg Acetylcysteine (Acetylcysteine 20%) 2 ml INH RBID [facility] Last Admin: 11/16/17 07:29 Dose: 2 ml Albuterol Sulfate (Albuterol 0.083% Inhal Aby (2.5 Mg/3 Ml) Ud) 2.5 mg INH RQ4 PRN PRN Reason: Shortness of Breath Last Admin: 11/15/17 00:57 Dose: 2.5 mg Albuterol/Ipratropium (Duoneb 3 Mg/0.5 Mg (3 Ml) Ud) 3 ml INH RQID [facility] Last Admin: 11/16/17 07:29 Dose: 3 ml Amoxicillin/Clavulanate Potassium (Augmentin 875 Mg-125 Mg Tab) 1 tab PO Q12 [facility] PRN Reason: Protocol Last Admin: 11/16/17 08:28 Dose: 1 tab Anastrozole (Arimidex 1 Mg Tab) 1 mg PO DAILY [facility] Last Admin: 11/16/17 08:36 Dose: 1 mg Aspirin (Ecotrin) 325 mg PO DAILY [facility] Last Admin: 11/16/17 08:32 Dose: 325 mg Atorvastatin Calcium (Lipitor) 40 mg PO DAILY [facility] Last Admin: 11/16/17 08:32 Dose: 40 mg Dicyclomine HCl (Bentyl) 10 mg PO QID PRN PRN Reason: Pain, moderate (4-7) Last Admin: 11/16/17 08:39 Dose: 10 mg Enoxaparin Sodium (Lovenox) 40 mg SC DAILY [facility] PRN Reason: Protocol Last Admin: 11/16/17 08:33 Dose: 40 mg Gabapentin (Neurontin) 600 mg PO Q8 [facility] Last Admin: 11/16/17 08:34 Dose: 600 mg Guaifenesin (Mucinex La) 600 mg PO Q12 [facility] Last Admin: 11/16/17 08:33 Dose: 600 mg Guaifenesin (Robitussin) 100 mg PO Q6 PRN PRN Reason: Cough Sodium Chloride (Sodium Chloride 0.9%) 500 mls @ 500 mls/hr IV .Q1H [facility] Last Admin: 11/12/17 19:30 Dose: 500 mls/hr Lidocaine (Lidoderm) 1 ea TD DAILY PRN PRN Reason: Pain, moderate (4-7) Last Admin: 11/12/17 08:46 Dose: 1 ea Losartan Potassium (Cozaar) 50 mg PO DAILY [facility] Last Admin: 11/16/17 08:32 Dose: 50 mg Methimazole (Tapazole) 15 mg PO DAILY [facility] Last Admin: 11/16/17 08:35 Dose: 15 mg Methylprednisolone (Solu-Medrol) 60 mg IV Q8H [facility] Last Admin: 11/16/17 05:47 Dose: 60 mg Metoprolol Tartrate (Lopressor) 6.25 mg PO Q12 [facility] Last Admin: 11/16/17 08:32 Dose: 6.25 mg Mirtazapine (Remeron) 15 mg PO HS [facility] Ondansetron HCl (Zofran Inj) 4 mg IVP Q4 PRN PRN Reason: Nausea/Vomiting Last Admin: 11/13/17 19:35 Dose: 4 mg Oxycodone/Acetaminophen (Percocet 5/325 Mg Tab) 1 tab PO Q6 PRN PRN Reason: Pain, severe (8-10) Stop: 11/19/17 09:17 Pantoprazole Sodium (Protonix Ec Tab) 40 mg PO DAILY [facility] Last Admin: 11/16/17 08:34 Dose: 40 mg Roflumilast (Daliresp) 500 mcg PO DAILY [facility] Last Admin: 11/13/17 10:14 Dose: 500 mcg Vancomycin HCl (Vancocin (Oral/Rectal Use)) 125 mg PO Q6 [facility] PRN Reason: Protocol Last Admin: 11/16/17 05:48 Dose: 125 mg Zolpidem Tartrate (Ambien) 5 mg PO HS PRN PRN Reason: Insomnia - Labs Labs: 11/16/17 04:20 11/16/17 04:20 PT 11.1 Seconds (9.8-13.1) 11/10/17 17:32 INR 1.0 (0.9-1.2) 11/10/17 17:32 APTT 20.7 Seconds (25.6-37.1) L 11/10/17 17:32 - Constitutional Appears: Chronically Ill Pt on High Flow Oxygen - Head Exam Head Exam: NORMAL INSPECTION, NORMOCEPHALIC - Eye Exam Eye Exam: EOMI, Normal appearance Pupil Exam: NORMAL ACCOMMODATION - ENT Exam ENT Exam: Mucous Membranes Dry, Normal External Ear Exam - Neck Exam Neck Exam: Full ROM. absent: Meningismus - Respiratory Exam Respiratory Exam: Accessory Muscle Use, Decreased Breath Sounds, Rhonchi better air entry compared to yesterday , mild wheezing - Cardiovascular Exam Cardiovascular Exam: REGULAR RHYTHM, +S1, +S2 - GI/Abdominal Exam GI & Abdominal Exam: Soft, Normal Bowel Sounds. minimal lower abd Tenderness - Extremities Exam Extremities Exam: Normal Capillary Refill. absent: Pedal Edema Additional comments: Right arm lymphedema Lower ext ecchymosis - Back Exam Back Exam: absent: CVA tenderness (L), CVA tenderness (R) - Neurological Exam Neurological Exam: Alert, Oriented x3 - Psychiatric Exam Psychiatric exam: Normal Affect, Normal Mood - Skin Skin Exam: Dry, Normal Color, Warm Assessment and Plan - Assessment and Plan (Free Text) Assessment: 67 y/o female with multiple chronic conditions - COPD, CHF, Hyperthyroidism, Hx of Breast CA s/p mastectomy , Chronic Right Lymphedema, was brought in because of SOB - found to be in resp failure due to CHF and COPD exacerbation. Patient was admitted to ICU- placed on Bipap, started on IV diuretics and IV Steroids. 1. Acute Hypercapneic Hypoxic Respiratory Failure on Chronic Resp Failure sec to COPD and CHF exacerbation - Pt was admitted to ICU - started on Bipap- changed to High Flow Oxygen 30 liter/40% FiO2 - cont Duonebs - d/c IV diuretics due to hypotension- will give prn - on Hydrocortisone IV - Pulm consulted - Dr Benz - ECHO: 60% EF (2) Acute exacerbation of CHF (congestive heart failure) systolic and diastolic Dysfunction, EF 40 % ( 2017) -Hold diuretics for now due to hypotension after pt had several diarrhea episodes, will just give prn -cont Losartan , change Metoprolol to succinate 3) Acute COPD exacerbation -Continue Duonebs - cont Hydrocortisone - cont PO Augmentin - d/c Daliresp as this may also cause abd pain , diarrhea 4. Mild Troponin Elevation prob sec to Demand Ischemia from Resp Failure Cardio consulted- Dr Lopez cont ASA, Statin 5. C Diff Colitis Stool + for antigen however neg toxin , however since pt is symptomatic - has diarrhea and lower abd pain, empirically started PO Flagyl- changed to PO Vanco by GI will cont to monitor 6) Hyperthyroidism -TSH low - increased Methimazole to 15 mg daily rpt TSH prior to d/c 7) HTN - pt became hypotensive due to several episodes of diarrhea- placed on hold however BP going up again - restarted meds 8. Hx of Breact CA - cont Arimidex DVT prophylaxis Lovenox
--- NOTE | 2017-11-16 11:44 | RAD ---
Date of service: 11/16/2017 PROCEDURE: CHEST RADIOGRAPH, 1 VIEW HISTORY: CHF/COPD COMPARISON: Comparison made with chest radiograph 11/12/2017. FINDINGS: LUNGS: Mild hyperinflation. Bibasilar atelectasis and or scarring changes with slight blunting right CP angle possibly due to some chronic pleural thickening. Tiny right-sided effusion not completely excluded. PLEURA: No pneumothorax or pleural fluid seen. CARDIOVASCULAR: Normal. OSSEOUS STRUCTURES: Absent right proximal humerus again noted with deformity of the right acromion. Degenerative osteoarthritis right acromioclavicular joint. In situ headless fixation screw present left humerus. 3 level ACDF fixation plate overlying the lower cervical spine unchanged VISUALIZED UPPER ABDOMEN: Normal. OTHER FINDINGS: None. IMPRESSION: Mild hyperinflation. Bibasilar atelectasis and or scarring changes with slight blunting right CP angle possibly due to some chronic pleural thickening. Tiny right-sided effusion not completely excluded.
--- NOTE | 2017-11-16 14:06 | DS ---
REFERRED BY: Dr. Noel, the hospitalist. HISTORY OF PRESENT ILLNESS: This is a very pleasant and unfortunate 67-year-old woman with a known history of breast cancer, COPD in the morning, who was referred for evaluation with lower abdominal pain, discomfort, and pasty mucousy-type stools for sometime now. The patient was admitted with pneumonia, exacerbation of COPD. She was found to have a C. diff antigen positive, but toxin negative, and she is referred for GI evaluation and recommendations. She denies any nausea, vomiting, odynophagia, or dysphagia. She has some lower abdominal burning and discomfort, but no pain per se. She has had no blood per rectum or melena, but she had frequent mucousy soft stools. ALLERGIES: SHE HAS ALLERGY TO PAPER TAPE. MEDICATIONS: Reviewed. She is on a long list of medications including metronidazole 500 mg p.o. every 8. She is also on Augmentin one tab p.o. every 12 along with all the other medications that she is on. PAST MEDICAL HISTORY: As per the HPI. PAST SURGICAL HISTORY: As per the HPI. She has had bilateral mastectomy. She had removal of her right upper arm bones and shoulder. She also had her gallbladder removed. FAMILY HISTORY: As per the HPI. PHYSICAL EXAMINATION: GENERAL: She is a well-developed and well-nourished, but ill-appearing woman, awake, alert, and oriented x3 with some shortness of breath. VITAL SIGNS: Stable. She is afebrile. ABDOMEN: Soft with good bowel sounds. Minimal tenderness to palpation of lower abdomen, but no palpable masses or lesions. LABORATORIES: Reviewed. CBC is essentially unremarkable with a white count of 9, H and H of 12 and 37, and platelets 237. IMPRESSION AND PLAN: This is a 67-year-old woman with multiple medical problems, who was referred with a Clostridium difficile positive antigen, but a negative toxin, who has some immunosuppression given her history of breast cancer. I put her on steroids also for her chronic obstructive pulmonary disease exacerbations and her pneumonia. She has been on antibiotics. I would suspect that the Clostridium difficile is probably underlying cause of her symptomatology. She is on the metronidazole 500 mg p.o. every 8, but perhaps we should discontinue that and start vancomycin 125 mg p.o. q.i.d. as it may be more effective in the situation since she may have had a Clostridium difficile infection in the past she states. Therefore, I will go ahead and discontinue the metronidazole and start the vancomycin, and we will follow her clinically. Edwar Pulliam MD
[2017-11-16] MEDS: Oxycodone/Acetaminophen 5/325 mg Tab PO PRN (14:07)
[2017-11-17] MEDS: Vancomycin 500 mg (Oral/Rectal USE) PO SCH ×4 (03:17→21:36)
[2017-11-17 05:05] LABS: HEMOGLOBIN 12.4 g/dL (12.0-16.0); MEAN CELL VOLUME 87.5 fl (81.0-99.0); MEAN CORPUSCULAR HEMOGLOBIN 28.4 pg (27.0-31.0); MEAN CORPUSCULAR HGB CONC 32.4 g/dL (33.0-37.0); RBC 4.39 Mil/uL (3.80-5.20); RED CELL DISTRIBUTION WIDTH 18.1 % (11.5-14.5); WHITE BLOOD COUNT 13.5 K/uL (4.8-10.8)
[2017-11-17 05:06] LABS: BLOOD UREA NITROGEN 19 mg/dl (7-17); GFR NON-AFRICAN AMERICAN > 60
--- NOTE | 2017-11-17 06:32 | CP.PCM.PN ---
Subjective - Date & Time of Evaluation Date of Evaluation: 11/17/17 Time of Evaluation: 08:30 - Subjective Subjective: Patient was seen and examined at bedside with Dr. Benz. She is resting in her bed and she is out of breath when speaking. She reports that she had 5/10 chest tightness last night but after she was given Percocet she felt much better and was able to sleep through the night. She did not use the bipap because she felt much more comfortable using the high flow nasal cannula and was able to get a good night sleep. She reports feeling well this morning and has good appetite. Last BM was last night and it was formed stool. Denies chest pain, shortness of breath, nausea, vomiting, diarrhea and constipation. Objective - Vital Signs/Intake and Output Vital Signs (last 24 hours): Temp Pulse Resp BP Pulse Ox 98.0 F 83 21 107/57 L 96 11/17/17 04:00 11/17/17 06:00 11/17/17 06:00 11/17/17 06:00 11/17/17 06:00 Intake and Output: 11/16/17 11/17/17 18:59 06:59 Intake Total 500 0 Output Total 750 1 Balance -250 -1 - Medications Medications: Current Medications Acetaminophen (Tylenol 325mg Tab) 650 mg PO Q6 PRN PRN Reason: Pain, Mild (1-3)/headache Last Admin: 11/15/17 05:42 Dose: 650 mg Acetylcysteine (Acetylcysteine 20%) 2 ml INH RBID [facility] Last Admin: 11/16/17 19:03 Dose: 2 ml Albuterol Sulfate (Albuterol 0.083% Inhal Aby (2.5 Mg/3 Ml) Ud) 2.5 mg INH RQ4 PRN PRN Reason: Shortness of Breath Last Admin: 11/15/17 00:57 Dose: 2.5 mg Albuterol/Ipratropium (Duoneb 3 Mg/0.5 Mg (3 Ml) Ud) 3 ml INH RQID [facility] Last Admin: 11/16/17 19:04 Dose: 3 ml Anastrozole (Arimidex 1 Mg Tab) 1 mg PO DAILY [facility] Last Admin: 11/16/17 08:36 Dose: 1 mg Aspirin (Ecotrin) 325 mg PO DAILY [facility] Last Admin: 11/16/17 08:32 Dose: 325 mg Atorvastatin Calcium (Lipitor) 40 mg PO DAILY [facility] Last Admin: 11/16/17 08:32 Dose: 40 mg Dicyclomine HCl (Bentyl) 10 mg PO QID PRN PRN Reason: Pain, moderate (4-7) Last Admin: 11/16/17 08:39 Dose: 10 mg Enoxaparin Sodium (Lovenox) 40 mg SC DAILY ANDREAS PRN Reason: Protocol Last Admin: 11/16/17 08:33 Dose: 40 mg Gabapentin (Neurontin) 600 mg PO Q8 [facility] Last Admin: 11/17/17 01:30 Dose: 600 mg Guaifenesin (Mucinex La) 600 mg PO Q12 [facility] Last Admin: 11/16/17 21:13 Dose: 600 mg Guaifenesin (Robitussin) 100 mg PO Q6 PRN PRN Reason: Cough Sodium Chloride (Sodium Chloride 0.9%) 500 mls @ 500 mls/hr IV .Q1H [facility] Last Admin: 11/12/17 19:30 Dose: 500 mls/hr Lidocaine (Lidoderm) 1 ea TD DAILY PRN PRN Reason: Pain, moderate (4-7) Last Admin: 11/12/17 08:46 Dose: 1 ea Losartan Potassium (Cozaar) 50 mg PO DAILY [facility] Last Admin: 11/16/17 08:32 Dose: 50 mg Methimazole (Tapazole) 15 mg PO DAILY [facility] Last Admin: 11/16/17 08:35 Dose: 15 mg Methylprednisolone (Solu-Medrol) 60 mg IV Q8H [facility] Last Admin: 11/17/17 03:16 Dose: 60 mg Metoprolol Succinate (Toprol Xl) 25 mg PO DAILY [facility] Mirtazapine (Remeron) 15 mg PO HS [facility] Last Admin: 11/16/17 21:13 Dose: 15 mg Ondansetron HCl (Zofran Inj) 4 mg IVP Q4 PRN PRN Reason: Nausea/Vomiting Last Admin: 11/13/17 19:35 Dose: 4 mg Oxycodone/Acetaminophen (Percocet 5/325 Mg Tab) 1 tab PO Q6 PRN PRN Reason: Pain, severe (8-10) Stop: 11/19/17 09:17 Last Admin: 11/16/17 14:07 Dose: 1 tab Pantoprazole Sodium (Protonix Ec Tab) 40 mg PO DAILY [facility] Last Admin: 11/16/17 08:34 Dose: 40 mg Roflumilast (Daliresp) 500 mcg PO DAILY [facility] Last Admin: 11/13/17 10:14 Dose: 500 mcg Vancomycin HCl (Vancocin (Oral/Rectal Use)) 125 mg PO Q6 ANDREAS PRN Reason: Protocol Last Admin: 11/17/17 03:17 Dose: 125 mg Zolpidem Tartrate (Ambien) 5 mg PO HS PRN PRN Reason: Insomnia Last Admin: 11/16/17 22:13 Dose: 5 mg - Labs Labs: 11/17/17 04:30 11/17/17 04:30 PT 11.1 Seconds (9.8-13.1) 11/10/17 17:32 INR 1.0 (0.9-1.2) 11/10/17 17:32 APTT 20.7 Seconds (25.6-37.1) L 11/10/17 17:32 - Constitutional Appears: Well, Non-toxic, No Acute Distress, Chronically Ill - Head Exam Head Exam: NORMAL INSPECTION - Eye Exam Eye Exam: Normal appearance - ENT Exam ENT Exam: Mucous Membranes Moist - Neck Exam Neck Exam: Normal Inspection (Tracheostomy scar present in midline. ). absent: Lymphadenopathy, Tenderness, Thyromegaly - Respiratory Exam Respiratory Exam: Decreased Breath Sounds, Rales. absent: Chest Wall Tenderness , Rhonchi, Wheezes, Respiratory Distress - Cardiovascular Exam Cardiovascular Exam: REGULAR RHYTHM, RRR, +S1, +S2. absent: Diastolic murmur, JVD, Murmur - GI/Abdominal Exam GI & Abdominal Exam: Distended, Soft, Tenderness (mild tenderness in RLQ), Normal Bowel Sounds. absent: Mass, Organomegaly, Rebound - Extremities Exam Extremities Exam: Normal Capillary Refill, Normal Inspection - Back Exam Back Exam: NORMAL INSPECTION - Neurological Exam Neurological Exam: Alert, Awake, Oriented x3 - Psychiatric Exam Psychiatric exam: Normal Affect, Normal Mood - Skin Skin Exam: Warm Assessment and Plan (1) Acute exacerbation of chronic obstructive pulmonary disease (COPD) Assessment & Plan: D/C'ed Augmentin. Continue Albuterol prn, Duoneb, acetylcystiene Begin to taper solumedrol tomorrow (11/18) Hold Roflumilast due to abdominal side effects. Status: Acute (2) Depression Assessment & Plan: Continue Remeron 15mg hs. Status: Acute (3) Diarrhea Assessment & Plan: Continue bentyl Consider CT abdomen and pelvis with contrast due to persistent RLQ tenderness. Status: Acute (4) Hyperthyroidism Assessment & Plan: Continue methimazole 15mg D. Status: Chronic (5) HTN (hypertension) Assessment & Plan: continue current management. 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
--- NOTE | 2017-11-17 07:08 | CP.CCUPN ---
<Chase Simpson - Last Filed: 11/17/17 13:40> CCU Subjective - Physician Review Events Since Last Encounter (Free Text): 11/17/17 07:18 Pt seen and examined at bedside. Denies significant overnight events. Reports restful nights sleep after starting ambien and increased dose of mirtazepine. Denies abdominal, chest pain. Reports breathing well with good air exchange. Slight, nonproductive cough. Denies diarrhea. She has remained afebrile overnight. CCU Objective - Vital Signs / Intake & Output Vital Signs (Last 4 hours): Vital Signs Temp Pulse Resp BP Pulse Ox 11/17/17 06:00 83 21 107/57 L 96 11/17/17 05:12 16 11/17/17 04:00 98.0 F 89 20 119/70 96 Intake and Output (Last 8hrs): Intake & Output 11/16/17 11/17/17 11/17/17 22:59 06:59 14:59 Intake Total 200 0 Output Total 551 Balance -351 0 Intake: IV 0 0 Oral 200 Output: Urine 550 Urine, Voided 550 Urine/Stool Mix 1 Other: # Voids Urine, Voided 1 - Physical Exam Physical Exam Limitations: Negative for: Altered Mental Status, Psychotic Head: Positive for: Atraumatic Extroacular Muscles: Positive for: EOMI Conjunctiva: Positive for: Normal Mouth: Positive for: Moist Mucous Membranes Respiratory/Chest: Positive for: Rhonchi (greater on R). Negative for: Accessory Muscle Use Cardiovascular: Positive for: Regular Rate and Rhythm Abdomen: Positive for: Normal Bowel Sounds. Negative for: Tenderness Breast/Axillary: Positive for: Other (s/p mastectomy) Upper Extremity: Positive for: Other (R: chronic lymphedema) Lower Extremity: Positive for: Normal Inspection. Negative for: Edema Neurological: Positive for: CN II-XII Intact, Speech Normal Skin: Positive for: Warm Psychiatric: Positive for: Alert, Oriented x 3, Normal Insight, Normal Concentration - Medications Active Medications: Active Medications Generic Name Dose Route Start Last Admin Trade Name Freq PRN Reason Stop Dose Admin Acetaminophen 650 mg 11/10/17 20:15 11/15/17 05:42 Tylenol 325mg Tab PO 650 mg Q6 PRN Administration Pain, Mild (1-3)/headache Acetylcysteine 2 ml 11/15/17 20:00 11/16/17 19:03 Acetylcysteine 20% INH 2 ml RBID ANDREAS Administration Albuterol Sulfate 2.5 mg 11/11/17 08:55 11/15/17 00:57 Albuterol 0.083% Inhal Aby (2.5 Mg/3 Ml) Ud INH 2.5 mg RQ4 PRN Administration Shortness of Breath Albuterol/Ipratropium 3 ml 11/10/17 20:00 11/16/17 19:04 Duoneb 3 Mg/0.5 Mg (3 Ml) Ud INH 3 ml RQID ANDREAS Administration Anastrozole 1 mg 11/11/17 09:00 11/16/17 08:36 Arimidex 1 Mg Tab PO 1 mg DAILY ANDREAS Administration Aspirin 325 mg 11/12/17 09:00 11/16/17 08:32 Ecotrin PO 325 mg DAILY ANDREAS Administration Atorvastatin Calcium 40 mg 11/14/17 09:00 11/16/17 08:32 Lipitor PO 40 mg DAILY ANDREAS Administration Dicyclomine HCl 10 mg 11/15/17 14:45 11/16/17 08:39 Bentyl PO 10 mg QID PRN Administration Pain, moderate (4-7) Enoxaparin Sodium 40 mg 11/11/17 09:00 11/16/17 08:33 Lovenox SC 40 mg DAILY ANDREAS Administration Protocol Gabapentin 600 mg 11/11/17 01:00 11/17/17 01:30 Neurontin PO 600 mg Q8 ANDREAS Administration Guaifenesin 600 mg 11/10/17 21:00 11/16/17 21:13 Mucinex La PO 600 mg Q12 ANDREAS Administration Guaifenesin 100 mg 11/14/17 22:04 Robitussin PO Q6 PRN Cough Sodium Chloride 500 mls @ 500 mls/hr 11/12/17 19:30 11/12/17 19:30 Sodium Chloride 0.9% IV 500 mls/hr .Q1H ANDREAS Administration Lidocaine 1 ea 11/10/17 19:55 11/12/17 08:46 Lidoderm TD 1 ea DAILY PRN Administration Pain, moderate (4-7) Losartan Potassium 50 mg 11/14/17 12:00 11/16/17 08:32 Cozaar PO 50 mg DAILY ANDREAS Administration Methimazole 15 mg 11/12/17 08:38 11/16/17 08:35 Tapazole PO 15 mg DAILY ANDREAS Administration Methylprednisolone 60 mg 11/15/17 11:15 11/17/17 03:16 Solu-Medrol IV 60 mg Q8H ANDREAS Administration Metoprolol Succinate 25 mg 11/17/17 09:00 Toprol Xl PO DAILY ANDREAS Mirtazapine 15 mg 11/16/17 22:00 11/16/17 21:13 Remeron PO 15 mg HS ANDREAS Administration Ondansetron HCl 4 mg 11/13/17 19:20 11/13/17 19:35 Zofran Inj IVP 4 mg Q4 PRN Administration Nausea/Vomiting Oxycodone/Acetaminophen 1 tab 11/16/17 09:16 11/16/17 14:07 Percocet 5/325 Mg Tab PO 11/19/17 09:17 1 tab Q6 PRN Administration Pain, severe (8-10) Pantoprazole Sodium 40 mg 11/11/17 09:00 11/16/17 08:34 Protonix Ec Tab PO 40 mg DAILY ANDREAS Administration Roflumilast 500 mcg 11/11/17 09:00 11/13/17 10:14 Daliresp PO 500 mcg DAILY ANDREAS Administration Vancomycin HCl 125 mg 11/15/17 16:00 11/17/17 03:17 Vancocin (Oral/Rectal Use) PO 125 mg Q6 ANDREAS Administration Protocol Zolpidem Tartrate 5 mg 11/16/17 09:37 11/16/17 22:13 Ambien PO 5 mg HS PRN Administration Insomnia - Patient Studies Lab Studies: Lab Studies 11/17/17 11/17/17 11/16/17 Range/Units 04:30 04:30 13:50 WBC 13.5 H D (4.8-10.8) K/uL RBC 4.39 (3.80-5.20) Mil/uL Hgb 12.4 (12.0-16.0) g/dL Hct 38.4 (34.0-47.0) % MCV 87.5 (81.0-99.0) fl MCH 28.4 (27.0-31.0) pg MCHC 32.4 L (33.0-37.0) g/dL RDW 18.1 H (11.5-14.5) % Plt Count 320 (130-400) K/uL Sodium 138 (132-148) mmol/l Potassium 3.8 (3.6-5.0) MMOL/L Chloride 99 (98-107) mmol/L Carbon Dioxide 30 (22-30) mmol/L Anion Gap 13 (10-20) BUN 19 H (7-17) mg/dl Creatinine 0.6 L (0.7-1.2) mg/dl Est GFR ( Amer) > 60 Est GFR (Non-Af Amer) > 60 Random Glucose 178 H (65-105) mg/dL Calcium 9.0 (8.4-10.2) mg/dL C. difficile Ag & Toxin Negative (NEGATIVE) Laboratory Results - last 24 hr 11/16/17 11/17/17 11/17/17 13:50 04:30 04:30 WBC 13.5 H D RBC 4.39 Hgb 12.4 Hct 38.4 MCV 87.5 MCH 28.4 MCHC 32.4 L RDW 18.1 H Plt Count 320 Sodium 138 Potassium 3.8 Chloride 99 Carbon Dioxide 30 Anion Gap 13 BUN 19 H Creatinine 0.6 L Est GFR ( Amer) > 60 Est GFR (Non-Af Amer) > 60 Random Glucose 178 H Calcium 9.0 C. difficile Ag & Toxin Negative Review of Systems - Cardiovascular Cardiovascular: As Per HPI. absent: Chest Pain, Chest Pain at Rest - Respiratory Respiratory: Cough. absent: Dyspnea, Hemoptysis - Gastrointestinal Gastrointestinal: absent: Abdominal Pain - Genitourinary Genitourinary: absent: Urinary Incontinence - Neurological Neurological: As Per HPI - Psychiatric Psychiatric: As Per HPI Critical Care Progress Note - Nutrition Nutrition: Nutrition Category Date Time Status Heart Healthy Diet [DIET] Diets 11/13/17 Lunch Active Assessment/Plan - Assessment and Plan (Free Text) Assessment: 67 yo F with pmhx of COPD, CHF, hyperthyroid, history of breast cancer s/p mastectomy and chronic R upper extremity lymphedema admitted for COPD and CHF exacerbation. Plan: Acute hypercapnic hypoxic respiratory failure secondary to COPD and CHF exacerbation. -Hi Flow NC @ 40%FiO2 -Intake: 500 ml; Output: 751 ml; Balance of -251 -duoneb QID -albuterol RQ4 PRN -solu-medrol 60 mg q8hr; continue for total of 72 hours; and begin taper [11/18] (60 mg q12 x 48 hours followed with 60 mg qDaily and transition to PO) -Acetylcysteine -Dr. Benz on board: recommendations appreciated -Monitor for respiratory function; progression of tapering -f/u ABG, CBC/BMP (2/2 steroids) CHF: systolic and diastolic -diuretic given yesteraday due to positive fluid balance -BP currently stable -ECHO: EF 60% with normal L ventricular function -monitor vitals; reassess to resume diuretic. -Consider repeat BNP Chest discomfort -2/2 body movement/repositioning -sponteneously resolved with respiratory therapy and pain management: percocet -Per Dr. Benz, consider bone scan due to hx of breast cancer with metastasis to L humeral head. Mild elevation in troponin -0.0530-->0.1460 --> 0.1120 -Dr. Lopez on board: recommendations appreciated -ASA, statin HTN -Losartan -Metoprolol -monitor vitals Sleep disturbance -significantly improved with addition of ambien; Mirtazapine increased to 15 mg -could be 2/2 SOB, cough -pt denies current depression, SI/HI h/o: Breast cancer s/p mastectomy with chronic R upper extremity lymphedema -Arimidex -keep R upper extremity elevated -monitor for neurologic/functional changes Hyperthyroid -low TSH, methimazole was increased to 15 mg -repeat TSH on d/c Diarrhea -Resolved -c. Diff hx antigen positive; toxin negative; repeat is negative -Pt on chronic abx: ciprofloxacin 500 mg bid for prophylaxis against cellulitis -Continue PO vancomycin for 10-[address] Pulliam -bcx neg x 5 days -O/P, stool culture: neg -monitor bowel movements Persistent lower abdominal pain -resolved -GI on board Ambulation -PT to eval and treat DVT/GI prophylaxis -Lovenox -Pantoprazole Case dw Dr. Tam Simpson MD PGY2 <Wayne Turcios - Last Filed: 11/17/17 16:29> CCU Subjective - Physician Review Subjective (Free Text): Attestation: Patient seen and examined at the bedside with Resident Dr. Soo Simpson; and I agree with his outline of plans and management documented below as discussed on AM rounds reflecting my review of all applicable clinical data, and participation in the care of the patient throughout the day in ICU; today, November 17, 2017. CCU Objective - Vital Signs / Intake & Output Intake and Output (Last 8hrs): Intake & Output 11/17/17 11/17/17 11/17/17 06:59 14:59 22:59 Intake Total 0 600 Output Total 250 Balance 0 350 Weight 130 lb Intake: IV 0 Oral 600 Output: Urine 250 Urine, Voided 250 Other: # Voids Urine, Voided 1 1 # Bowel Movements 1
[2017-11-17] MEDS: Albuterol-Ipratrop 3 mg / 0.5 (3 ml) UD INH SCH ×4 (07:45→19:27)
[2017-11-17] MEDS: Acetylcysteine 20% Inhal Soln (4ml) INH SCH ×2 (07:45→19:27)
[2017-11-17] MEDS: Aspirin 325 mg EC Tablets PO SCH (08:51)
[2017-11-17] MEDS: Enoxaparin 40 mg Syringe SC SCH (08:52)
[2017-11-17] MEDS: guaiFENesin 600 mg ER Tab PO SCH ×2 (08:53→21:13)
[2017-11-17] MEDS: methIMAzole 5 MG TAB PO SCH (08:54)
[2017-11-17] MEDS: Pantoprazole 40 mg EC Tab PO SCH (08:54)
[2017-11-17] MEDS: Metoprolol Succinate 25 mg XL Tab PO SCH (08:55)
--- NOTE | 2017-11-17 09:31 | CP.PCM.PN ---
Subjective - Date & Time of Evaluation Date of Evaluation: 11/17/17 Time of Evaluation: 08:45 - Subjective Subjective: no fever SOB on exertion on High Flow Oxygen at 30L/40% able to sleep last night diarrhea very much improved some mild lower abd discomfort - will do CT scan no N/V Objective - Vital Signs/Intake and Output Vital Signs (last 24 hours): Temp Pulse Resp BP Pulse Ox 97.9 F 99 H 20 121/68 94 L 11/17/17 07:43 11/17/17 08:55 11/17/17 08:13 11/17/17 08:55 11/17/17 07:43 Intake and Output: 11/17/17 11/17/17 06:59 18:59 Intake Total 0 100 Output Total 1 Balance -1 100 - Medications Medications: Current Medications Acetaminophen (Tylenol 325mg Tab) 650 mg PO Q6 PRN PRN Reason: Pain, Mild (1-3)/headache Last Admin: 11/15/17 05:42 Dose: 650 mg Acetylcysteine (Acetylcysteine 20%) 2 ml INH RBID [facility] Last Admin: 11/17/17 07:45 Dose: 2 ml Albuterol Sulfate (Albuterol 0.083% Inhal Aby (2.5 Mg/3 Ml) Ud) 2.5 mg INH RQ4 PRN PRN Reason: Shortness of Breath Last Admin: 11/15/17 00:57 Dose: 2.5 mg Albuterol/Ipratropium (Duoneb 3 Mg/0.5 Mg (3 Ml) Ud) 3 ml INH RQID [facility] Last Admin: 11/17/17 07:45 Dose: 3 ml Anastrozole (Arimidex 1 Mg Tab) 1 mg PO DAILY [facility] Last Admin: 11/17/17 08:49 Dose: 1 mg Aspirin (Ecotrin) 325 mg PO DAILY [facility] Last Admin: 11/17/17 08:51 Dose: 325 mg Atorvastatin Calcium (Lipitor) 40 mg PO DAILY [facility] Last Admin: 11/17/17 08:52 Dose: 40 mg Dicyclomine HCl (Bentyl) 10 mg PO QID PRN PRN Reason: Pain, moderate (4-7) Last Admin: 11/16/17 08:39 Dose: 10 mg Enoxaparin Sodium (Lovenox) 40 mg SC DAILY [facility] PRN Reason: Protocol Last Admin: 11/17/17 08:52 Dose: 40 mg Gabapentin (Neurontin) 600 mg PO Q8 [facility] Last Admin: 11/17/17 08:53 Dose: 600 mg Guaifenesin (Mucinex La) 600 mg PO Q12 [facility] Last Admin: 11/17/17 08:53 Dose: 600 mg Guaifenesin (Robitussin) 100 mg PO Q6 PRN PRN Reason: Cough Sodium Chloride (Sodium Chloride 0.9%) 500 mls @ 500 mls/hr IV .Q1H [facility] Last Admin: 11/12/17 19:30 Dose: 500 mls/hr Lidocaine (Lidoderm) 1 ea TD DAILY PRN PRN Reason: Pain, moderate (4-7) Last Admin: 11/12/17 08:46 Dose: 1 ea Losartan Potassium (Cozaar) 50 mg PO DAILY [facility] Last Admin: 11/17/17 08:51 Dose: 50 mg Methimazole (Tapazole) 15 mg PO DAILY [facility] Last Admin: 11/17/17 08:54 Dose: 15 mg Methylprednisolone (Solu-Medrol) 60 mg IV Q8H [facility] Last Admin: 11/17/17 03:16 Dose: 60 mg Metoprolol Succinate (Toprol Xl) 25 mg PO DAILY [facility] Last Admin: 11/17/17 08:55 Dose: 25 mg Mirtazapine (Remeron) 15 mg PO HS [facility] Last Admin: 11/16/17 21:13 Dose: 15 mg Ondansetron HCl (Zofran Inj) 4 mg IVP Q4 PRN PRN Reason: Nausea/Vomiting Last Admin: 11/13/17 19:35 Dose: 4 mg Oxycodone/Acetaminophen (Percocet 5/325 Mg Tab) 1 tab PO Q6 PRN PRN Reason: Pain, severe (8-10) Stop: 11/19/17 09:17 Last Admin: 11/16/17 14:07 Dose: 1 tab Pantoprazole Sodium (Protonix Ec Tab) 40 mg PO DAILY [facility] Last Admin: 11/17/17 08:54 Dose: 40 mg Roflumilast (Daliresp) 500 mcg PO DAILY [facility] Last Admin: 11/13/17 10:14 Dose: 500 mcg Vancomycin HCl (Vancocin (Oral/Rectal Use)) 125 mg PO Q6 [facility] PRN Reason: Protocol Last Admin: 11/17/17 03:17 Dose: 125 mg Zolpidem Tartrate (Ambien) 5 mg PO HS PRN PRN Reason: Insomnia Last Admin: 11/16/17 22:13 Dose: 5 mg - Labs Labs: 11/17/17 04:30 11/17/17 04:30 PT 11.1 Seconds (9.8-13.1) 11/10/17 17:32 INR 1.0 (0.9-1.2) 11/10/17 17:32 APTT 20.7 Seconds (25.6-37.1) L 11/10/17 17:32 - Constitutional Appears: Chronically Ill Pt on High Flow Oxygen - Head Exam Head Exam: NORMAL INSPECTION, NORMOCEPHALIC - Eye Exam Eye Exam: EOMI, Normal appearance Pupil Exam: NORMAL ACCOMMODATION - ENT Exam ENT Exam: Mucous Membranes Dry, Normal External Ear Exam - Neck Exam Neck Exam: Full ROM. absent: Meningismus - Respiratory Exam Respiratory Exam: Accessory Muscle Use, Decreased Breath Sounds, Rhonchi better air entry compared to yesterday , mild wheezing - Cardiovascular Exam Cardiovascular Exam: REGULAR RHYTHM, +S1, +S2 - GI/Abdominal Exam GI & Abdominal Exam: Soft, Normal Bowel Sounds. minimal lower abd tenderness - Extremities Exam Extremities Exam: Normal Capillary Refill. absent: Pedal Edema Additional comments: Right arm lymphedema Lower ext ecchymosis - Back Exam Back Exam: absent: CVA tenderness (L), CVA tenderness (R) - Neurological Exam Neurological Exam: Alert, Oriented x3 - Psychiatric Exam Psychiatric exam: Normal Affect, Normal Mood - Skin Skin Exam: Dry, Normal Color, Warm Assessment and Plan - Assessment and Plan (Free Text) Assessment: 67 y/o female with multiple chronic conditions - COPD, CHF, Hyperthyroidism, Hx of Breast CA s/p mastectomy , Chronic Right Lymphedema, was brought in because of SOB - found to be in resp failure due to CHF and COPD exacerbation. Patient was admitted to ICU- placed on Bipap, started on IV diuretics and IV Steroids. Now on High Flow Oxygen and saturating well. Developed lower abd pain and diarrhea - C diff +, started on PO Vanco, GI consulted. 1. Acute Hypercapneic Hypoxic Respiratory Failure on Chronic Resp Failure sec to COPD and CHF exacerbation - Pt was admitted to ICU - started on Bipap- changed to High Flow Oxygen 30 liters/40% FiO2 - cont Duonebs - d/c IV diuretics due to hypotension- will give prn - on Solumedrol IV - Pulm consulted - Dr Benz - ECHO: 60% EF (2) Acute exacerbation of CHF (congestive heart failure) systolic and diastolic Dysfunction, EF 40 % ( 2017) -Diuretics- will give prn -cont Losartan , changed Metoprolol to succinate - Cardio consulted 3) Acute COPD exacerbation -Continue Duonebs - cont IV Solumedrol - completed tx with PO Augmentin - d/c Daliresp as this may also cause abd pain , diarrhea 4. Mild Troponin Elevation prob sec to Demand Ischemia from Resp Failure Cardio consulted- Dr Lopez cont ASA, Statin, BB, ARB 5. C Diff Colitis Stool + for antigen however neg toxin , however since pt is symptomatic - has diarrhea and lower abd pain, empirically started PO Flagyl- changed to PO Vanco by GI will cont to monitor rpt C diff negative - isolation d/c 6) Hyperthyroidism -TSH low - increased Methimazole to 15 mg daily -rpt TSH 7) HTN - cont Toprol and Losartan 8. Hx of Breact CA - cont Arimidex 9. Abd Pain - CT of abd and Pelvis DVT prophylaxis Lovenox
--- NOTE | 2017-11-17 09:33 | CP.PCM.PN ---
Subjective - Date & Time of Evaluation Date of Evaluation: 11/17/17 Time of Evaluation: 09:32 - Subjective Subjective: diarrhea improving Objective - Vital Signs/Intake and Output Vital Signs (last 24 hours): Temp Pulse Resp BP Pulse Ox 97.9 F 99 H 20 121/68 94 L 11/17/17 07:43 11/17/17 08:55 11/17/17 08:13 11/17/17 08:55 11/17/17 07:43 Intake and Output: 11/17/17 11/17/17 06:59 18:59 Intake Total 0 100 Output Total 1 Balance -1 100 - Medications Medications: Current Medications Acetaminophen (Tylenol 325mg Tab) 650 mg PO Q6 PRN PRN Reason: Pain, Mild (1-3)/headache Last Admin: 11/15/17 05:42 Dose: 650 mg Acetylcysteine (Acetylcysteine 20%) 2 ml INH RBID [facility] Last Admin: 11/17/17 07:45 Dose: 2 ml Albuterol Sulfate (Albuterol 0.083% Inhal Aby (2.5 Mg/3 Ml) Ud) 2.5 mg INH RQ4 PRN PRN Reason: Shortness of Breath Last Admin: 11/15/17 00:57 Dose: 2.5 mg Albuterol/Ipratropium (Duoneb 3 Mg/0.5 Mg (3 Ml) Ud) 3 ml INH RQID [facility] Last Admin: 11/17/17 07:45 Dose: 3 ml Anastrozole (Arimidex 1 Mg Tab) 1 mg PO DAILY [facility] Last Admin: 11/17/17 08:49 Dose: 1 mg Aspirin (Ecotrin) 325 mg PO DAILY [facility] Last Admin: 11/17/17 08:51 Dose: 325 mg Atorvastatin Calcium (Lipitor) 40 mg PO DAILY [facility] Last Admin: 11/17/17 08:52 Dose: 40 mg Dicyclomine HCl (Bentyl) 10 mg PO QID PRN PRN Reason: Pain, moderate (4-7) Last Admin: 11/16/17 08:39 Dose: 10 mg Enoxaparin Sodium (Lovenox) 40 mg SC DAILY [facility] PRN Reason: Protocol Last Admin: 11/17/17 08:52 Dose: 40 mg Gabapentin (Neurontin) 600 mg PO Q8 [facility] Last Admin: 11/17/17 08:53 Dose: 600 mg Guaifenesin (Mucinex La) 600 mg PO Q12 [facility] Last Admin: 11/17/17 08:53 Dose: 600 mg Guaifenesin (Robitussin) 100 mg PO Q6 PRN PRN Reason: Cough Sodium Chloride (Sodium Chloride 0.9%) 500 mls @ 500 mls/hr IV .Q1H [facility] Last Admin: 11/12/17 19:30 Dose: 500 mls/hr Lidocaine (Lidoderm) 1 ea TD DAILY PRN PRN Reason: Pain, moderate (4-7) Last Admin: 11/12/17 08:46 Dose: 1 ea Losartan Potassium (Cozaar) 50 mg PO DAILY [facility] Last Admin: 11/17/17 08:51 Dose: 50 mg Methimazole (Tapazole) 15 mg PO DAILY [facility] Last Admin: 11/17/17 08:54 Dose: 15 mg Methylprednisolone (Solu-Medrol) 60 mg IV Q8H [facility] Last Admin: 11/17/17 03:16 Dose: 60 mg Metoprolol Succinate (Toprol Xl) 25 mg PO DAILY [facility] Last Admin: 11/17/17 08:55 Dose: 25 mg Mirtazapine (Remeron) 15 mg PO HS [facility] Last Admin: 11/16/17 21:13 Dose: 15 mg Ondansetron HCl (Zofran Inj) 4 mg IVP Q4 PRN PRN Reason: Nausea/Vomiting Last Admin: 11/13/17 19:35 Dose: 4 mg Oxycodone/Acetaminophen (Percocet 5/325 Mg Tab) 1 tab PO Q6 PRN PRN Reason: Pain, severe (8-10) Stop: 11/19/17 09:17 Last Admin: 11/16/17 14:07 Dose: 1 tab Pantoprazole Sodium (Protonix Ec Tab) 40 mg PO DAILY [facility] Last Admin: 11/17/17 08:54 Dose: 40 mg Roflumilast (Daliresp) 500 mcg PO DAILY [facility] Last Admin: 11/13/17 10:14 Dose: 500 mcg Vancomycin HCl (Vancocin (Oral/Rectal Use)) 125 mg PO Q6 [facility] PRN Reason: Protocol Last Admin: 11/17/17 03:17 Dose: 125 mg Zolpidem Tartrate (Ambien) 5 mg PO HS PRN PRN Reason: Insomnia Last Admin: 11/16/17 22:13 Dose: 5 mg - Labs Labs: 11/17/17 04:30 11/17/17 04:30 PT 11.1 Seconds (9.8-13.1) 11/10/17 17:32 INR 1.0 (0.9-1.2) 11/10/17 17:32 APTT 20.7 Seconds (25.6-37.1) L 11/10/17 17:32 - Neck Exam Neck Exam: Normal Inspection - Respiratory Exam Respiratory Exam: NORMAL BREATHING PATTERN - Cardiovascular Exam Cardiovascular Exam: REGULAR RHYTHM - GI/Abdominal Exam GI & Abdominal Exam: Soft, Normal Bowel Sounds Assessment and Plan - Assessment and Plan (Free Text) Assessment: 67 yo female with diarrhea improving cont po vanco 10-14 days
[2017-11-17 10:36] LABS: ABG ALLEN TEST YES; ARTERIAL BLOOD GAS HEMOGLOBIN 12.5 g/dL (11.7-17.4); ARTERIAL BLOOD GAS O2 CAPACITY 16.9 mL/dL (16-24); ARTERIAL BLOOD GAS O2 CONTENT 16.6 ML/dL (15-23); ARTERIAL BLOOD GAS PCO2 49 mm/Hg (35-45); ARTERIAL BLOOD GAS PH 7.44 (7.35-7.45); ARTERIAL BLOOD GAS PO2 73 mm/Hg (80-100); ARTERIAL BLOOD GAS TCO2 34.8 mmol/L (22-28)
[2017-11-17] MEDS ORDERED: Iohexol 240 (50 ml) PO ONE (15:42)
[2017-11-17] MEDS ORDERED: Iohexol 300 100 ML IJ ONE (18:30)
[2017-11-17] MEDS ORDERED: Sodium Chloride 0.9% 50 ML IV ONE (18:30)
[2017-11-18] MEDS: Vancomycin 500 mg (Oral/Rectal USE) PO SCH ×4 (04:00→23:21)
[2017-11-18 05:39] LABS: HEMOGLOBIN 12.6 g/dL (12.0-16.0); MEAN CELL VOLUME 87.2 fl (81.0-99.0); MEAN CORPUSCULAR HEMOGLOBIN 28.5 pg (27.0-31.0); MEAN CORPUSCULAR HGB CONC 32.6 g/dL (33.0-37.0); RBC 4.42 Mil/uL (3.80-5.20); RED CELL DISTRIBUTION WIDTH 18.3 % (11.5-14.5); WHITE BLOOD COUNT 12.2 K/uL (4.8-10.8)
[2017-11-18 06:11] LABS: BLOOD UREA NITROGEN 26 mg/dl (7-17); GFR NON-AFRICAN AMERICAN > 60
--- NOTE | 2017-11-18 07:05 | CP.PCM.PN ---
Subjective - Date & Time of Evaluation Date of Evaluation: 11/18/17 Time of Evaluation: 08:00 - Subjective Subjective: Patient seen and examined at bedside with Dr. Benz. She is resting comfortably in her bed but is dyspneic when speaking. She reports that she had one episode of chest tightness associated with dyspnea last night, 07/16, and states that it subsided after a few minutes without taking Percocet. She did not utilize bipap last night and reports she felt comfortable on the HFNC. She reports that she slept well last night and has been able to tolerate solid foods. She continues to report RLQ tenderness on palpation and states she feels bloated. She states that she had one to two BM last night, sticky in character. She went for a CT abdomen and pelvis yesterday. Currently, she denies chest pain, dyspnea, diarrhea, constipation, nausea and vomiting. Patient on HFNC: 40%; 30L/m ; spO2: 100%. Objective - Vital Signs/Intake and Output Vital Signs (last 24 hours): Temp Pulse Resp BP Pulse Ox 98.2 F 91 H 17 123/68 95 11/18/17 00:00 11/18/17 00:00 11/18/17 04:50 11/18/17 00:00 11/18/17 00:00 - Medications Medications: Current Medications Acetaminophen (Tylenol 325mg Tab) 650 mg PO Q6 PRN PRN Reason: Pain, Mild (1-3)/headache Last Admin: 11/15/17 05:42 Dose: 650 mg Acetylcysteine (Acetylcysteine 20%) 2 ml INH RBID [facility] Last Admin: 11/17/17 19:27 Dose: 2 ml Albuterol Sulfate (Albuterol 0.083% Inhal Aby (2.5 Mg/3 Ml) Ud) 2.5 mg INH RQ4 PRN PRN Reason: Shortness of Breath Last Admin: 11/15/17 00:57 Dose: 2.5 mg Albuterol/Ipratropium (Duoneb 3 Mg/0.5 Mg (3 Ml) Ud) 3 ml INH RQID [facility] Last Admin: 11/17/17 19:27 Dose: 3 ml Anastrozole (Arimidex 1 Mg Tab) 1 mg PO DAILY [facility] Last Admin: 11/17/17 08:49 Dose: 1 mg Aspirin (Ecotrin) 325 mg PO DAILY [facility] Last Admin: 11/17/17 08:51 Dose: 325 mg Atorvastatin Calcium (Lipitor) 40 mg PO DAILY [facility] Last Admin: 11/17/17 08:52 Dose: 40 mg Dicyclomine HCl (Bentyl) 10 mg PO QID PRN PRN Reason: Pain, moderate (4-7) Last Admin: 11/16/17 08:39 Dose: 10 mg Enoxaparin Sodium (Lovenox) 40 mg SC DAILY [facility] PRN Reason: Protocol Last Admin: 11/17/17 08:52 Dose: 40 mg Gabapentin (Neurontin) 600 mg PO Q8 [facility] Last Admin: 11/18/17 01:26 Dose: 600 mg Guaifenesin (Mucinex La) 600 mg PO Q12 [facility] Last Admin: 11/17/17 21:13 Dose: 600 mg Guaifenesin (Robitussin) 100 mg PO Q6 PRN PRN Reason: Cough Lidocaine (Lidoderm) 1 ea TD DAILY PRN PRN Reason: Pain, moderate (4-7) Last Admin: 11/12/17 08:46 Dose: 1 ea Losartan Potassium (Cozaar) 50 mg PO DAILY [facility] Last Admin: 11/17/17 08:51 Dose: 50 mg Methimazole (Tapazole) 15 mg PO DAILY [facility] Last Admin: 11/17/17 08:54 Dose: 15 mg Methylprednisolone (Solu-Medrol) 60 mg IV Q8H [facility] Last Admin: 11/18/17 04:00 Dose: 60 mg Metoprolol Succinate (Toprol Xl) 25 mg PO DAILY [facility] Last Admin: 11/17/17 08:55 Dose: 25 mg Mirtazapine (Remeron) 15 mg PO HS [facility] Last Admin: 11/17/17 21:13 Dose: 15 mg Ondansetron HCl (Zofran Inj) 4 mg IVP Q4 PRN PRN Reason: Nausea/Vomiting Last Admin: 11/13/17 19:35 Dose: 4 mg Oxycodone/Acetaminophen (Percocet 5/325 Mg Tab) 1 tab PO Q6 PRN PRN Reason: Pain, severe (8-10) Stop: 11/19/17 09:17 Last Admin: 11/16/17 14:07 Dose: 1 tab Pantoprazole Sodium (Protonix Ec Tab) 40 mg PO DAILY [facility] Last Admin: 11/17/17 08:54 Dose: 40 mg Roflumilast (Daliresp) 500 mcg PO DAILY [facility] Last Admin: 11/13/17 10:14 Dose: 500 mcg Vancomycin HCl (Vancocin (Oral/Rectal Use)) 125 mg PO Q6 [facility] PRN Reason: Protocol Last Admin: 11/18/17 04:00 Dose: 125 mg Zolpidem Tartrate (Ambien) 5 mg PO HS PRN PRN Reason: Insomnia Last Admin: 11/17/17 22:06 Dose: 5 mg - Labs Labs: 11/18/17 04:20 11/18/17 04:20 PT 11.1 Seconds (9.8-13.1) 11/10/17 17:32 INR 1.0 (0.9-1.2) 11/10/17 17:32 APTT 20.7 Seconds (25.6-37.1) L 11/10/17 17:32 - Constitutional Appears: Non-toxic, No Acute Distress, Chronically Ill - Head Exam Head Exam: NORMAL INSPECTION - Eye Exam Eye Exam: Normal appearance - ENT Exam ENT Exam: Mucous Membranes Moist - Neck Exam Neck Exam: Normal Inspection (tracheostomy scar present at midline of neck. ). absent: Lymphadenopathy, Tenderness, Thyromegaly - Respiratory Exam Respiratory Exam: Decreased Breath Sounds, Prolonged Expiratory Phase (high pitched expiratory wheezing. ). absent: Accessory Muscle Use, Chest Wall Tenderness, Rales, Rhonchi, Respiratory Distress, Stridor - Cardiovascular Exam Cardiovascular Exam: REGULAR RHYTHM, RRR, +S1, +S2. absent: Clicks, Diastolic murmur, Gallop, JVD, Rubs, Murmur - GI/Abdominal Exam GI & Abdominal Exam: Distended, Soft, Tenderness (mild RLQ tenderness), Normal Bowel Sounds. absent: Guarding, Organomegaly, Pulsatile Mass, Rebound - Extremities Exam Extremities Exam: Normal Capillary Refill, Normal Inspection. absent: Tenderness (+2 dorsalis pedis and tibial pulses bilaterally) - Back Exam Back Exam: NORMAL INSPECTION. absent: paraspinal tenderness, rash noted, tenderness - Neurological Exam Neurological Exam: Awake, Normal Gait, Oriented x3 - Psychiatric Exam Psychiatric exam: Normal Affect, Normal Mood - Skin Skin Exam: Dry, Normal Color, Warm Assessment and Plan (1) Acute exacerbation of chronic obstructive pulmonary disease (COPD) Assessment & Plan: Continue current regimen: Albuterol prn, Duoneb, acetylcysteine. Hold Daliresp due to abdominal side effects. Begin tapering Solumedrol today. Begin low dose Theophylline 100mg q12h. Status: Acute (2) Diarrhea Assessment & Plan: Continue current GI recommendation: Vanomycin PO and bentyl. Begin Carafate suspension BID for possible GI discomfort. Status: Acute (3) Depression Assessment & Plan: Continue Remeron 15mg hs. Status: Acute (4) Hyperthyroidism Assessment & Plan: Please evaluate low TSH level of 0.11. Patient currently on Methimazole 15mg daily. Status: Chronic (5) HTN (hypertension) Assessment & Plan: Continue current management. 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
[2017-11-18] MEDS: Albuterol-Ipratrop 3 mg / 0.5 (3 ml) UD INH SCH ×4 (07:11→19:51)
[2017-11-18] MEDS: Acetylcysteine 20% Inhal Soln (4ml) INH SCH ×2 (07:11→19:50)
--- NOTE | 2017-11-18 07:43 | CP.CCUPN ---
<Chase Simpson - Last Filed: 11/18/17 11:43> CCU Subjective - Physician Review Events Since Last Encounter (Free Text): 11/18/17 09:37 Pt seen and examined at bedside. She denies significant overnight events. Breathing is improved but still dyspneic on exertion. R lower abdominal pain is improving. Sleeping well. Denies current chest pain. CCU Objective - Vital Signs / Intake & Output Vital Signs (Last 4 hours): Vital Signs Temp Pulse Resp BP Pulse Ox 11/18/17 07:12 20 11/18/17 05:00 97.9 F 78 16 128/74 98 11/18/17 04:50 17 Intake and Output (Last 8hrs): Intake & Output 11/17/17 11/18/17 11/18/17 22:59 06:59 14:59 Intake Total 250 0 50 Balance 250 0 50 Weight 130 lb Intake: IV 0 Oral 250 50 Other: # Voids Urine, Voided 1 1 # Bowel Movements 1 2 - Physical Exam Physical Exam Limitations: Negative for: Altered Mental Status, Psychotic Head: Positive for: Atraumatic Extroacular Muscles: Positive for: EOMI Conjunctiva: Positive for: Normal Mouth: Positive for: Moist Mucous Membranes Neck: Positive for: Normal Range of Motion Respiratory/Chest: Positive for: Rhonchi (greater on R). Negative for: Accessory Muscle Use Cardiovascular: Positive for: Regular Rate and Rhythm Abdomen: Positive for: Normal Bowel Sounds. Negative for: Tenderness Breast/Axillary: Positive for: Other (s/p mastectomy) Upper Extremity: Positive for: Other (R: chronic lymphedema) Lower Extremity: Positive for: Normal Inspection. Negative for: Edema Neurological: Positive for: CN II-XII Intact, Speech Normal Skin: Positive for: Warm Psychiatric: Positive for: Alert, Oriented x 3, Normal Insight, Normal Concentration - Medications Active Medications: Active Medications Generic Name Dose Route Start Last Admin Trade Name Freq PRN Reason Stop Dose Admin Acetaminophen 650 mg 11/10/17 20:15 11/15/17 05:42 Tylenol 325mg Tab PO 650 mg Q6 PRN Administration Pain, Mild (1-3)/headache Acetylcysteine 2 ml 11/15/17 20:00 11/18/17 07:11 Acetylcysteine 20% INH 2 ml RBID ANDREAS Administration Albuterol Sulfate 2.5 mg 11/11/17 08:55 11/15/17 00:57 Albuterol 0.083% Inhal Aby (2.5 Mg/3 Ml) Ud INH 2.5 mg RQ4 PRN Administration Shortness of Breath Albuterol/Ipratropium 3 ml 11/10/17 20:00 11/18/17 07:11 Duoneb 3 Mg/0.5 Mg (3 Ml) Ud INH 3 ml RQID ANDREAS Administration Anastrozole 1 mg 11/11/17 09:00 11/17/17 08:49 Arimidex 1 Mg Tab PO 1 mg DAILY ANDREAS Administration Aspirin 325 mg 11/12/17 09:00 11/17/17 08:51 Ecotrin PO 325 mg DAILY ANDREAS Administration Atorvastatin Calcium 40 mg 11/14/17 09:00 11/17/17 08:52 Lipitor PO 40 mg DAILY ANDREAS Administration Dicyclomine HCl 10 mg 11/15/17 14:45 11/16/17 08:39 Bentyl PO 10 mg QID PRN Administration Pain, moderate (4-7) Enoxaparin Sodium 40 mg 11/11/17 09:00 11/17/17 08:52 Lovenox SC 40 mg DAILY ANDREAS Administration Protocol Gabapentin 600 mg 11/11/17 01:00 11/18/17 01:26 Neurontin PO 600 mg Q8 ANDREAS Administration Guaifenesin 600 mg 11/10/17 21:00 11/17/17 21:13 Mucinex La PO 600 mg Q12 ANDREAS Administration Guaifenesin 100 mg 11/14/17 22:04 Robitussin PO Q6 PRN Cough Lidocaine 1 ea 11/10/17 19:55 11/12/17 08:46 Lidoderm TD 1 ea DAILY PRN Administration Pain, moderate (4-7) Losartan Potassium 50 mg 11/14/17 12:00 11/17/17 08:51 Cozaar PO 50 mg DAILY ANDREAS Administration Methimazole 15 mg 11/12/17 08:38 11/17/17 08:54 Tapazole PO 15 mg DAILY ANDREAS Administration Methylprednisolone 60 mg 11/18/17 09:00 Solu-Medrol IV BID [facility] Metoprolol Succinate 25 mg 11/17/17 09:00 11/17/17 08:55 Toprol Xl PO 25 mg DAILY ANDREAS Administration Mirtazapine 15 mg 11/16/17 22:00 11/17/17 21:13 Remeron PO 15 mg HS ANDREAS Administration Ondansetron HCl 4 mg 11/13/17 19:20 11/13/17 19:35 Zofran Inj IVP 4 mg Q4 PRN Administration Nausea/Vomiting Oxycodone/Acetaminophen 1 tab 11/16/17 09:16 11/16/17 14:07 Percocet 5/325 Mg Tab PO 11/19/17 09:17 1 tab Q6 PRN Administration Pain, severe (8-10) Pantoprazole Sodium 40 mg 11/11/17 09:00 11/17/17 08:54 Protonix Ec Tab PO 40 mg DAILY ANDREAS Administration Roflumilast 500 mcg 11/11/17 09:00 11/13/17 10:14 Daliresp PO 500 mcg DAILY ANDREAS Administration Vancomycin HCl 125 mg 11/15/17 16:00 11/18/17 04:00 Vancocin (Oral/Rectal Use) PO 125 mg Q6 ANDREAS Administration Protocol Zolpidem Tartrate 5 mg 11/16/17 09:37 11/17/17 22:06 Ambien PO 5 mg HS PRN Administration Insomnia - Patient Studies Lab Studies: Lab Studies 11/18/17 11/18/17 11/17/17 Range/Units 04:20 04:20 10:10 WBC 12.2 H (4.8-10.8) K/uL RBC 4.42 (3.80-5.20) Mil/uL Hgb 12.6 (12.0-16.0) g/dL Hct 38.6 (34.0-47.0) % MCV 87.2 (81.0-99.0) fl MCH 28.5 (27.0-31.0) pg MCHC 32.6 L (33.0-37.0) g/dL RDW 18.3 H (11.5-14.5) % Plt Count 338 (130-400) K/uL pCO2 49 H (35-45) mm/Hg pO2 73 L (80-100) mm/Hg HCO3 31.0 H (21-28) mmol/L ABG pH 7.44 (7.35-7.45) ABG Total CO2 34.8 H (22-28) mmol/L ABG O2 Saturation 98.0 (95-98) % ABG O2 Content 16.6 (15-23) ML/dL ABG Base Excess 7.9 H (-2.0-3.0) mmol/L ABG Hemoglobin 12.5 (11.7-17.4) g/dL ABG Carboxyhemoglobin 1.9 H (0.5-1.5) % POC ABG HHb (Measured) 1.9 (0.0-5.0) % ABG Methemoglobin 1.7 (0.0-3.0) % ABG O2 Capacity 16.9 (16-24) mL/dL Tawanda Test Yes A-a O2 Difference 151.0 mm/Hg Hgb O2 Saturation 94.5 L (95.0-98.0) % Liter Flow 30 Vent Mode High flow lpm FiO2 40.0 % Crit Value Called To Dr lisa garcia Crit Value Called By Salvador Crit Value Read Back Y Blood Gas Notified Time 1036 Sodium 140 (132-148) mmol/l Potassium 3.4 L (3.6-5.0) MMOL/L Chloride 101 (98-107) mmol/L Carbon Dioxide 31 H (22-30) mmol/L Anion Gap 11 (10-20) BUN 26 H (7-17) mg/dl Creatinine 0.5 L (0.7-1.2) mg/dl Est GFR ( Amer) > 60 Est GFR (Non-Af Amer) > 60 Random Glucose 158 H (65-105) mg/dL Calcium 9.0 (8.4-10.2) mg/dL TSH 3rd Generation 0.11 L (0.46-4.68) mIU/ML Laboratory Results - last 24 hr 11/17/17 11/18/17 11/18/17 10:10 04:20 04:20 WBC 12.2 H RBC 4.42 Hgb 12.6 Hct 38.6 MCV 87.2 MCH 28.5 MCHC 32.6 L RDW 18.3 H Plt Count 338 pCO2 49 H pO2 73 L HCO3 31.0 H ABG pH 7.44 ABG Total CO2 34.8 H ABG O2 Saturation 98.0 ABG O2 Content 16.6 ABG Base Excess 7.9 H ABG Hemoglobin 12.5 ABG Carboxyhemoglobin 1.9 H POC ABG HHb (Measured) 1.9 ABG Methemoglobin 1.7 ABG O2 Capacity 16.9 Tawanda Test Yes A-a O2 Difference 151.0 Hgb O2 Saturation 94.5 L Liter Flow 30 Vent Mode High flow lpm FiO2 40.0 Crit Value Called To Dr lisa garcia Crit Value Called By Salvador Crit Value Read Back Y Blood Gas Notified Time 1036 Sodium 140 Potassium 3.4 L Chloride 101 Carbon Dioxide 31 H Anion Gap 11 BUN 26 H Creatinine 0.5 L Est GFR ( Amer) > 60 Est GFR (Non-Af Amer) > 60 Random Glucose 158 H Calcium 9.0 TSH 3rd Generation 0.11 L Critical Care Progress Note - Nutrition Nutrition: Nutrition Category Date Time Status Heart Healthy Diet [DIET] Diets 11/13/17 Lunch Active Assessment/Plan - Assessment and Plan (Free Text) Assessment: 67 yo F with pmhx of COPD, CHF, hyperthyroid, history of breast cancer s/p mastectomy and chronic R upper extremity lymphedema admitted for COPD and CHF exacerbation. Plan: Afebrile Saturating 98% On Hi-Flow 30 L @ 40% FiO2 solu-medrol taper today: 60 mg BID x 48 hr Past 24 hours: Intake 850, Output 250, Balance of 600: voiding on bedpan; will consider lasix prn K: 3.4: Administer kdur 20 CT abdo/pelvis reviewed by Dr. Tam Fields pain significantly improved; diarrhea resolved. TSH: 0.11 from 0.28. on increased dose of Methimazole PT for ambulation and sitting in chair; given arm sling to help stabilize arm. HTN: continue antihypertensives Sleeping well on current meds -f/u CMP, monitor lactate Case dw Dr. Tam Simpson MD PGY2 <Wayne Turcios - Last Filed: 11/18/17 23:19> CCU Subjective - Physician Review Subjective (Free Text): Attestation: Patient seen and examined at the bedside with Resident Dr. Soo Simpson; and I agree with his outline of plans and management documented below as discussed on AM rounds reflecting my review of all applicable clinical data, and participation in the care of the patient throughout the day in ICU; today, November 18, 2017.
--- NOTE | 2017-11-18 08:10 | CP.PCM.PN ---
Subjective - Date & Time of Evaluation Date of Evaluation: 11/18/17 Time of Evaluation: 08:10 - Subjective Subjective: pt at baseline, tolerating all therapies well at this time no complaints hd stable no acute distress Objective - Vital Signs/Intake and Output Vital Signs (last 24 hours): Temp Pulse Resp BP Pulse Ox 97.9 F 78 20 128/74 98 11/18/17 05:00 11/18/17 05:00 11/18/17 07:12 11/18/17 05:00 11/18/17 05:00 Vitals Reviewed GEN: WDWN, alert, cooperative HEENT: NCAT, PERRL, EOMI HEART: RRR, +S1S2, NO MRG LUNG: wheezes bilaterally, no respiratory distress ABD: soft, NT, ND, No HSM, No masses EXT: normal pedal pulses, normal capillary refill NEURO: awake, alert, no focal deficits SKIN: warm, dry PSYCH: normal mood, normal affect Intake and Output: 11/18/17 11/18/17 06:59 18:59 Intake Total 0 50 Balance 0 50 - Medications Medications: Current Medications Acetaminophen (Tylenol 325mg Tab) 650 mg PO Q6 PRN PRN Reason: Pain, Mild (1-3)/headache Last Admin: 11/15/17 05:42 Dose: 650 mg Acetylcysteine (Acetylcysteine 20%) 2 ml INH RBID [facility] Last Admin: 11/18/17 07:11 Dose: 2 ml Albuterol Sulfate (Albuterol 0.083% Inhal Aby (2.5 Mg/3 Ml) Ud) 2.5 mg INH RQ4 PRN PRN Reason: Shortness of Breath Last Admin: 11/15/17 00:57 Dose: 2.5 mg Albuterol/Ipratropium (Duoneb 3 Mg/0.5 Mg (3 Ml) Ud) 3 ml INH RQID [facility] Last Admin: 11/18/17 07:11 Dose: 3 ml Anastrozole (Arimidex 1 Mg Tab) 1 mg PO DAILY [facility] Last Admin: 11/17/17 08:49 Dose: 1 mg Aspirin (Ecotrin) 325 mg PO DAILY [facility] Last Admin: 11/17/17 08:51 Dose: 325 mg Atorvastatin Calcium (Lipitor) 40 mg PO DAILY [facility] Last Admin: 11/17/17 08:52 Dose: 40 mg Dicyclomine HCl (Bentyl) 10 mg PO QID PRN PRN Reason: Pain, moderate (4-7) Last Admin: 11/16/17 08:39 Dose: 10 mg Enoxaparin Sodium (Lovenox) 40 mg SC DAILY [facility] PRN Reason: Protocol Last Admin: 11/17/17 08:52 Dose: 40 mg Gabapentin (Neurontin) 600 mg PO Q8 [facility] Last Admin: 11/18/17 01:26 Dose: 600 mg Guaifenesin (Mucinex La) 600 mg PO Q12 [facility] Last Admin: 11/17/17 21:13 Dose: 600 mg Guaifenesin (Robitussin) 100 mg PO Q6 PRN PRN Reason: Cough Lidocaine (Lidoderm) 1 ea TD DAILY PRN PRN Reason: Pain, moderate (4-7) Last Admin: 11/12/17 08:46 Dose: 1 ea Losartan Potassium (Cozaar) 50 mg PO DAILY [facility] Last Admin: 11/17/17 08:51 Dose: 50 mg Methimazole (Tapazole) 15 mg PO DAILY [facility] Last Admin: 11/17/17 08:54 Dose: 15 mg Methylprednisolone (Solu-Medrol) 60 mg IV BID [facility] Metoprolol Succinate (Toprol Xl) 25 mg PO DAILY [facility] Last Admin: 11/17/17 08:55 Dose: 25 mg Mirtazapine (Remeron) 15 mg PO HS [facility] Last Admin: 11/17/17 21:13 Dose: 15 mg Ondansetron HCl (Zofran Inj) 4 mg IVP Q4 PRN PRN Reason: Nausea/Vomiting Last Admin: 11/13/17 19:35 Dose: 4 mg Oxycodone/Acetaminophen (Percocet 5/325 Mg Tab) 1 tab PO Q6 PRN PRN Reason: Pain, severe (8-10) Stop: 11/19/17 09:17 Last Admin: 11/16/17 14:07 Dose: 1 tab Pantoprazole Sodium (Protonix Ec Tab) 40 mg PO DAILY [facility] Last Admin: 11/17/17 08:54 Dose: 40 mg Roflumilast (Daliresp) 500 mcg PO DAILY [facility] Last Admin: 11/13/17 10:14 Dose: 500 mcg Vancomycin HCl (Vancocin (Oral/Rectal Use)) 125 mg PO Q6 [facility] PRN Reason: Protocol Last Admin: 11/18/17 04:00 Dose: 125 mg Zolpidem Tartrate (Ambien) 5 mg PO HS PRN PRN Reason: Insomnia Last Admin: 11/17/17 22:06 Dose: 5 mg - Labs Labs: 11/18/17 04:20 11/18/17 04:20 PT 11.1 Seconds (9.8-13.1) 11/10/17 17:32 INR 1.0 (0.9-1.2) 11/10/17 17:32 APTT 20.7 Seconds (25.6-37.1) L 11/10/17 17:32 Assessment and Plan - Assessment and Plan (Free Text) Plan: 67 y/o female with multiple chronic conditions - COPD, CHF, Hyperthyroidism, Hx of Breast CA s/p mastectomy , Chronic Right Lymphedema, was brought in because of SOB - found to be in resp failure due to CHF and COPD exacerbation. Patient was admitted to ICU- placed on Bipap, started on IV diuretics and IV Steroids. tolerating High Flow Oxygen well, and saturating well. Developed lower abd pain and diarrhea - C diff +, started on PO Vanco, GI consulted. 1. Acute Hypercapneic Hypoxic Respiratory Failure on Chronic Resp Failure sec to COPD and CHF exacerbation - Pt was admitted to ICU - started on Bipap- changed to High Flow Oxygen 30 liters/40% FiO2, tolerating well - cont Duonebs - d/c IV diuretics due to hypotension- will give prn - on Solumedrol IV - Pulm consulted - Dr Benz - ECHO: 60% EF (2) Acute exacerbation of CHF (congestive heart failure) systolic and diastolic Dysfunction, EF 40 % ( 2017) -Diuretics- will give prn -cont Losartan , changed Metoprolol to succinate - Cardio consulted 3) Acute COPD exacerbation -Continue Duonebs - cont IV Solumedrol - completed tx with PO Augmentin - d/c Daliresp as this may also cause abd pain , diarrhea 4. Mild Troponin Elevation prob sec to Demand Ischemia from Resp Failure Cardio consulted- Dr Lopez cont ASA, Statin, BB, ARB 5. C Diff Colitis Stool + for antigen however neg toxin , however since pt is symptomatic - has diarrhea and lower abd pain, empirically started PO Flagyl- changed to PO Vanco by GI will cont to monitor rpt C diff negative - isolation d/c 6) Hyperthyroidism -TSH low - increased Methimazole to 15 mg daily -rpt TSH 7) HTN - cont Toprol and Losartan 8. Hx of Breact CA - cont Arimidex 9. Abd Pain - CT of abd and Pelvis DVT prophylaxis Lovenox
[2017-11-18] MEDS ORDERED: Potassium Chloride 20 mEq ER Tab PO ONE (08:36)
[2017-11-18] MEDS: Oxycodone/Acetaminophen 5/325 mg Tab PO PRN ×2 (08:40→20:19)
[2017-11-18] MEDS: guaiFENesin 600 mg ER Tab PO SCH ×2 (08:45→20:19)
[2017-11-18] MEDS: Pantoprazole 40 mg EC Tab PO SCH (08:45)
[2017-11-18] MEDS: methIMAzole 5 MG TAB PO SCH (08:46)
[2017-11-18] MEDS: Metoprolol Succinate 25 mg XL Tab PO SCH (08:48)
[2017-11-18] MEDS: Enoxaparin 40 mg Syringe SC SCH (08:58)
[2017-11-18] MEDS ORDERED: methylPREDNISolone 60 MG in Sodium Chloride 0.9% 50 ML IV SCH (09:00)
--- NOTE | 2017-11-18 10:09 | CP.PCM.PN ---
Subjective - Date & Time of Evaluation Date of Evaluation: 11/18/17 Time of Evaluation: 10:08 - Subjective Subjective: no overnight events Objective - Vital Signs/Intake and Output Vital Signs (last 24 hours): Temp Pulse Resp BP Pulse Ox 97.9 F 96 H 20 130/70 98 11/18/17 05:00 11/18/17 08:48 11/18/17 07:12 11/18/17 08:48 11/18/17 05:00 Intake and Output: 11/18/17 11/18/17 06:59 18:59 Intake Total 0 50 Balance 0 50 - Medications Medications: Current Medications Acetaminophen (Tylenol 325mg Tab) 650 mg PO Q6 PRN PRN Reason: Pain, Mild (1-3)/headache Last Admin: 11/15/17 05:42 Dose: 650 mg Acetylcysteine (Acetylcysteine 20%) 2 ml INH RBID [facility] Last Admin: 11/18/17 07:11 Dose: 2 ml Albuterol Sulfate (Albuterol 0.083% Inhal Aby (2.5 Mg/3 Ml) Ud) 2.5 mg INH RQ4 PRN PRN Reason: Shortness of Breath Last Admin: 11/15/17 00:57 Dose: 2.5 mg Albuterol/Ipratropium (Duoneb 3 Mg/0.5 Mg (3 Ml) Ud) 3 ml INH RQID [facility] Last Admin: 11/18/17 07:11 Dose: 3 ml Anastrozole (Arimidex 1 Mg Tab) 1 mg PO DAILY [facility] Last Admin: 11/18/17 08:43 Dose: 1 mg Aspirin (Ecotrin) 325 mg PO DAILY [facility] Last Admin: 11/17/17 08:51 Dose: 325 mg Atorvastatin Calcium (Lipitor) 40 mg PO DAILY [facility] Last Admin: 11/18/17 08:45 Dose: 40 mg Dicyclomine HCl (Bentyl) 10 mg PO QID PRN PRN Reason: Pain, moderate (4-7) Last Admin: 11/16/17 08:39 Dose: 10 mg Enoxaparin Sodium (Lovenox) 40 mg SC DAILY [facility] PRN Reason: Protocol Last Admin: 11/18/17 08:58 Dose: 40 mg Gabapentin (Neurontin) 600 mg PO Q8 [facility] Last Admin: 11/18/17 08:45 Dose: 600 mg Guaifenesin (Mucinex La) 600 mg PO Q12 [facility] Last Admin: 11/18/17 08:45 Dose: 600 mg Guaifenesin (Robitussin) 100 mg PO Q6 PRN PRN Reason: Cough Lidocaine (Lidoderm) 1 ea TD DAILY PRN PRN Reason: Pain, moderate (4-7) Last Admin: 11/12/17 08:46 Dose: 1 ea Losartan Potassium (Cozaar) 50 mg PO DAILY [facility] Last Admin: 11/18/17 08:43 Dose: 50 mg Methimazole (Tapazole) 15 mg PO DAILY [facility] Last Admin: 11/18/17 08:46 Dose: 15 mg Methylprednisolone (Solu-Medrol) 60 mg IV BID [facility] Last Admin: 11/18/17 08:45 Dose: 60 mg Metoprolol Succinate (Toprol Xl) 25 mg PO DAILY [facility] Last Admin: 11/18/17 08:48 Dose: 25 mg Mirtazapine (Remeron) 15 mg PO HS [facility] Last Admin: 11/17/17 21:13 Dose: 15 mg Ondansetron HCl (Zofran Inj) 4 mg IVP Q4 PRN PRN Reason: Nausea/Vomiting Last Admin: 11/13/17 19:35 Dose: 4 mg Oxycodone/Acetaminophen (Percocet 5/325 Mg Tab) 1 tab PO Q6 PRN PRN Reason: Pain, severe (8-10) Stop: 11/19/17 09:17 Last Admin: 11/18/17 08:40 Dose: 1 tab Pantoprazole Sodium (Protonix Ec Tab) 40 mg PO DAILY [facility] Last Admin: 11/18/17 08:45 Dose: 40 mg Sucralfate (Carafate Oral Susp) 1 gm PO BID [facility] Theophylline (Maximiliano-24) 100 mg PO Q12 [facility] Vancomycin HCl (Vancocin (Oral/Rectal Use)) 125 mg PO Q6 [facility] PRN Reason: Protocol Last Admin: 11/18/17 04:00 Dose: 125 mg Zolpidem Tartrate (Ambien) 5 mg PO HS PRN PRN Reason: Insomnia Last Admin: 11/17/17 22:06 Dose: 5 mg - Labs Labs: 11/18/17 04:20 11/18/17 04:20 PT 11.1 Seconds (9.8-13.1) 11/10/17 17:32 INR 1.0 (0.9-1.2) 11/10/17 17:32 APTT 20.7 Seconds (25.6-37.1) L 11/10/17 17:32 - Respiratory Exam Respiratory Exam: Rhonchi - Cardiovascular Exam Cardiovascular Exam: REGULAR RHYTHM - GI/Abdominal Exam GI & Abdominal Exam: Soft, Normal Bowel Sounds Assessment and Plan - Assessment and Plan (Free Text) Assessment: 67 yo female with presumptive cdiff diarrhea improving cont po vanco
--- NOTE | 2017-11-18 10:35 | CT ---
Date of service: 11/17/2017 PROCEDURE: CT Abdomen and Pelvis with contrast HISTORY: abd pain COMPARISON: CT scan of the abdomen pelvis dated 06/30/2016. TECHNIQUE: Contrast dose: 90 mL Omnipaque 300 Radiation dose: Total exam DLP = 577.9 mGy-cm. This CT exam was performed using one or more of the following dose reduction techniques: Automated exposure control, adjustment of the mA and/or kV according to patient size, and/or use of iterative reconstruction technique. FINDINGS: LOWER THORAX: Bibasilar emphysema. No focal consolidation or pleural effusion. Heart size normal. LIVER: Right hepatic dome cyst. No gross lesion or ductal dilatation. GALLBLADDER AND BILE DUCTS: Prior cholecystectomy with surgical clips in place. PANCREAS: Unremarkable. Suggestion of pancreatic divisum. No gross lesion or ductal dilatation. SPLEEN: Unremarkable. ADRENALS: Stable indeterminate 8 mm left adrenal nodule (series 3, image 32). KIDNEYS AND URETERS: Unremarkable. No hydronephrosis. No solid mass. VASCULATURE: Unremarkable. No aortic aneurysm. BOWEL: Unremarkable. No obstruction. No gross mural thickening. APPENDIX: Normal appendix. PERITONEUM: Unremarkable. No free fluid. No free air. LYMPH NODES: Unremarkable. No enlarged lymph nodes. BLADDER: Unremarkable. REPRODUCTIVE: Unremarkable. BONES: No acute fracture. Severe lumbar spinal degenerative changes. OTHER FINDINGS: None. IMPRESSION: No acute abdominal pelvic pathology. Additional stable findings as above.
[2017-11-18] MEDS: Aspirin 325 mg EC Tablets PO SCH (10:49)
[2017-11-18] MEDS: Theophylline 100mg ER 24 hrs Cap PO SCH ×2 (10:49→23:21)
[2017-11-18] MEDS: Sucralfate 1 gm/10 ml Oral Susp UD PO SCH (16:17)
[2017-11-18] MEDS: Albuterol 0.083% Inhal Sol (2.5 mg/3 mL) UD INH PRN (23:24)
[2017-11-19] MEDS: Vancomycin 500 mg (Oral/Rectal USE) PO SCH ×4 (04:48→21:49)
[2017-11-19 06:55] LABS: ALB/GLOB RATIO 1.1 (1.0-2.1); ALBUMIN 2.9 g/dL (3.5-5.0); ALT/SGPT 33 U/L (9-52); AST/SGOT 22 U/L (14-36); BLOOD UREA NITROGEN 25 mg/dl (7-17); CALCIUM 8.4 mg/dL (8.4-10.2); GFR NON-AFRICAN AMERICAN > 60
--- NOTE | 2017-11-19 07:12 | CP.PCM.PN ---
Subjective - Date & Time of Evaluation Date of Evaluation: 11/19/17 Time of Evaluation: 07:12 - Subjective Subjective: patient doing well this morning, appears comfortable, however continues to have mild work of breathing HD stable, saturating 100 % on high flow, can likely titrate down today no acute distress Objective - Vital Signs/Intake and Output Vital Signs (last 24 hours): Temp Pulse Resp BP Pulse Ox 98.4 F 90 16 120/64 93 L 11/19/17 01:00 11/19/17 01:00 11/19/17 04:50 11/19/17 01:00 11/19/17 01:00 Intake and Output: 11/19/17 11/19/17 06:59 18:59 Intake Total 0 Balance 0 - Medications Medications: Current Medications Acetaminophen (Tylenol 325mg Tab) 650 mg PO Q6 PRN PRN Reason: Pain, Mild (1-3)/headache Last Admin: 11/15/17 05:42 Dose: 650 mg Acetylcysteine (Acetylcysteine 20%) 2 ml INH RBID [facility] Last Admin: 11/18/17 19:50 Dose: 2 ml Albuterol Sulfate (Albuterol 0.083% Inhal Aby (2.5 Mg/3 Ml) Ud) 2.5 mg INH RQ4 PRN PRN Reason: Shortness of Breath Last Admin: 11/18/17 23:24 Dose: 2.5 mg Albuterol/Ipratropium (Duoneb 3 Mg/0.5 Mg (3 Ml) Ud) 3 ml INH RQID [facility] Last Admin: 11/18/17 19:51 Dose: 3 ml Anastrozole (Arimidex 1 Mg Tab) 1 mg PO DAILY [facility] Last Admin: 11/18/17 08:43 Dose: 1 mg Aspirin (Ecotrin) 325 mg PO DAILY [facility] Last Admin: 11/18/17 10:49 Dose: 325 mg Atorvastatin Calcium (Lipitor) 40 mg PO DAILY [facility] Last Admin: 11/18/17 08:45 Dose: 40 mg Dicyclomine HCl (Bentyl) 10 mg PO QID PRN PRN Reason: Pain, moderate (4-7) Last Admin: 11/16/17 08:39 Dose: 10 mg Enoxaparin Sodium (Lovenox) 40 mg SC DAILY [facility] PRN Reason: Protocol Last Admin: 11/18/17 08:58 Dose: 40 mg Gabapentin (Neurontin) 600 mg PO Q8 [facility] Last Admin: 11/19/17 00:42 Dose: 600 mg Guaifenesin (Mucinex La) 600 mg PO Q12 [facility] Last Admin: 11/18/17 20:19 Dose: 600 mg Guaifenesin (Robitussin) 100 mg PO Q6 PRN PRN Reason: Cough Lidocaine (Lidoderm) 1 ea TD DAILY PRN PRN Reason: Pain, moderate (4-7) Last Admin: 11/12/17 08:46 Dose: 1 ea Losartan Potassium (Cozaar) 50 mg PO DAILY [facility] Last Admin: 11/18/17 08:43 Dose: 50 mg Methimazole (Tapazole) 15 mg PO DAILY [facility] Last Admin: 11/18/17 08:46 Dose: 15 mg Methylprednisolone (Solu-Medrol) 60 mg IV BID [facility] Last Admin: 11/18/17 16:18 Dose: 60 mg Metoprolol Succinate (Toprol Xl) 25 mg PO DAILY [facility] Last Admin: 11/18/17 08:48 Dose: 25 mg Mirtazapine (Remeron) 15 mg PO HS [facility] Last Admin: 11/18/17 23:22 Dose: 15 mg Ondansetron HCl (Zofran Inj) 4 mg IVP Q4 PRN PRN Reason: Nausea/Vomiting Last Admin: 11/13/17 19:35 Dose: 4 mg Oxycodone/Acetaminophen (Percocet 5/325 Mg Tab) 1 tab PO Q6 PRN PRN Reason: Pain, severe (8-10) Stop: 11/19/17 09:17 Last Admin: 11/18/17 20:19 Dose: 1 tab Pantoprazole Sodium (Protonix Ec Tab) 40 mg PO DAILY [facility] Last Admin: 11/18/17 08:45 Dose: 40 mg Sucralfate (Carafate Oral Susp) 1 gm PO BID [facility] Last Admin: 11/18/17 16:17 Dose: 1 gm Theophylline (Maximiliano-24) 100 mg PO Q12 [facility] Last Admin: 11/18/17 23:21 Dose: 100 mg Vancomycin HCl (Vancocin (Oral/Rectal Use)) 125 mg PO Q6 [facility] PRN Reason: Protocol Last Admin: 11/19/17 04:48 Dose: 125 mg Zolpidem Tartrate (Ambien) 5 mg PO HS PRN PRN Reason: Insomnia Last Admin: 11/18/17 23:20 Dose: 5 mg - Labs Labs: 11/18/17 04:20 11/19/17 05:30 PT 11.1 Seconds (9.8-13.1) 11/10/17 17:32 INR 1.0 (0.9-1.2) 11/10/17 17:32 APTT 20.7 Seconds (25.6-37.1) L 11/10/17 17:32 - Constitutional Appears: Non-toxic, No Acute Distress - Head Exam Head Exam: ATRAUMATIC, NORMOCEPHALIC - Eye Exam Eye Exam: EOMI, Normal appearance Pupil Exam: NORMAL ACCOMODATION - ENT Exam ENT Exam: Mucous Membranes Moist, Normal Exam - Neck Exam Neck Exam: Normal Inspection. absent: Tenderness - Respiratory Exam Respiratory Exam: Wheezes Additional comments: mild increased work of breathing, improving - Cardiovascular Exam Cardiovascular Exam: RRR, +S1, +S2 - GI/Abdominal Exam GI & Abdominal Exam: Soft, Normal Bowel Sounds. absent: Mass, Organomegaly - Extremities Exam Extremities Exam: Normal Capillary Refill. absent: Pedal Edema - Back Exam Back Exam: absent: CVA tenderness (L), rash noted - Neurological Exam Neurological Exam: Alert, Awake - Psychiatric Exam Psychiatric exam: Normal Affect, Normal Mood Assessment and Plan - Assessment and Plan (Free Text) Plan: 67 y/o female with multiple chronic conditions - COPD, CHF, Hyperthyroidism, Hx of Breast CA s/p mastectomy , Chronic Right Lymphedema, was brought in because of SOB - found to be in resp failure due to CHF and COPD exacerbation. Patient was admitted to ICU- placed on Bipap, started on IV diuretics and IV Steroids. tolerating High Flow Oxygen well, and saturating well, can likely titrate down high flow today patietn in on 3L NC at home at nighttime. Developed lower abd pain and diarrhea - C diff +, started on PO Vanco, GI consulted. 1. Acute Hypercapneic Hypoxic Respiratory Failure on Chronic Resp Failure sec to COPD and CHF exacerbation - Pt was admitted to ICU - started on Bipap- changed to High Flow Oxygen 30 liters/40% FiO2, tolerating well, can likely titrate down. on 3L at home at night - cont Duonebs - d/c IV diuretics due to hypotension- will give prn - on Solumedrol IV - Pulm consulted - Dr Benz - ECHO: 60% EF (2) Acute exacerbation of CHF (congestive heart failure) systolic and diastolic Dysfunction, EF 40 % ( 2017) -Diuretics- will give prn -cont Losartan , changed Metoprolol to succinate - Cardio consulted 3) Acute COPD exacerbation -Continue Duonebs - cont IV Solumedrol - completed tx with PO Augmentin - d/c Daliresp as this may also cause abd pain , diarrhea 4. Mild Troponin Elevation prob sec to Demand Ischemia from Resp Failure Cardio consulted- Dr Lopez cont ASA, Statin, BB, ARB 5. C Diff Colitis Stool + for antigen however neg toxin , however since pt is symptomatic - has diarrhea and lower abd pain, empirically started PO Flagyl- changed to PO Vanco by GI will cont to monitor rpt C diff negative - isolation d/c 6) Hyperthyroidism -TSH low - increased Methimazole to 15 mg daily -rpt TSH 7) HTN - cont Toprol and Losartan 8. Hx of Breact CA - cont Arimidex 9. Abd Pain - CT of abd and Pelvis DVT prophylaxis Lovenox
[2017-11-19] MEDS: Acetylcysteine 20% Inhal Soln (4ml) INH SCH ×2 (07:27→19:23)
[2017-11-19] MEDS: Albuterol-Ipratrop 3 mg / 0.5 (3 ml) UD INH SCH ×4 (07:27→19:23)
[2017-11-19] MEDS: Sucralfate 1 gm/10 ml Oral Susp UD PO SCH ×2 (09:07→16:33)
[2017-11-19] MEDS: Aspirin 325 mg EC Tablets PO SCH (09:08)
[2017-11-19] MEDS: Enoxaparin 40 mg Syringe SC SCH (09:08)
[2017-11-19] MEDS: Pantoprazole 40 mg EC Tab PO SCH (09:09)
[2017-11-19] MEDS: guaiFENesin 600 mg ER Tab PO SCH ×2 (09:09→21:51)
[2017-11-19] MEDS: Theophylline 100mg ER 24 hrs Cap PO SCH ×2 (09:09→21:50)
[2017-11-19] MEDS: Metoprolol Succinate 25 mg XL Tab PO SCH (09:09)
[2017-11-19] MEDS: methIMAzole 5 MG TAB PO SCH (09:11)
[2017-11-19] MEDS: Albuterol 0.083% Inhal Sol (2.5 mg/3 mL) UD INH PRN ×2 (12:24→21:40)
[2017-11-19] MEDS: Oxycodone/Acetaminophen 5/325 mg Tab PO PRN (16:35)
[2017-11-20] MEDS: Vancomycin 500 mg (Oral/Rectal USE) PO SCH ×4 (04:50→21:24)
[2017-11-20 06:18] LABS: HEMOGLOBIN 12.2 g/dL (12.0-16.0); MEAN CELL VOLUME 87.5 fl (81.0-99.0); MEAN CORPUSCULAR HEMOGLOBIN 28.6 pg (27.0-31.0); MEAN CORPUSCULAR HGB CONC 32.6 g/dL (33.0-37.0); RBC 4.26 Mil/uL (3.80-5.20); RED CELL DISTRIBUTION WIDTH 18.7 % (11.5-14.5); WHITE BLOOD COUNT 10.7 K/uL (4.8-10.8)
[2017-11-20 06:41] LABS: BLOOD UREA NITROGEN 23 mg/dl (7-17); CALCIUM 8.6 mg/dL (8.4-10.2); GFR NON-AFRICAN AMERICAN > 60
[2017-11-20] MEDS: Albuterol-Ipratrop 3 mg / 0.5 (3 ml) UD INH SCH ×4 (07:36→19:45)
[2017-11-20] MEDS: Acetylcysteine 20% Inhal Soln (4ml) INH SCH ×2 (07:36→19:45)
[2017-11-20] MEDS: Metoprolol Succinate 25 mg XL Tab PO SCH (09:51)
[2017-11-20] MEDS: Pantoprazole 40 mg EC Tab PO SCH (09:51)
[2017-11-20] MEDS: Theophylline 100mg ER 24 hrs Cap PO SCH ×2 (09:52→21:24)
[2017-11-20] MEDS: guaiFENesin 600 mg ER Tab PO SCH ×2 (09:52→21:25)
[2017-11-20] MEDS: Enoxaparin 40 mg Syringe SC SCH (09:53)
[2017-11-20] MEDS: Sucralfate 1 gm/10 ml Oral Susp UD PO SCH ×2 (09:53→16:06)
[2017-11-20] MEDS: Aspirin 325 mg EC Tablets PO SCH (09:54)
[2017-11-20] MEDS: methIMAzole 5 MG TAB PO SCH (09:55)
--- NOTE | 2017-11-20 10:25 | CP.PCM.PN ---
Subjective - Date & Time of Evaluation Date of Evaluation: 11/20/17 Time of Evaluation: 10:22 - Subjective Subjective: pt states she is feeling the same as yesterday continues to be on 30LPM at 40% o2 hd stable no acute distress Objective - Vital Signs/Intake and Output Vital Signs (last 24 hours): Temp Pulse Resp BP Pulse Ox 98.5 F 88 18 146/78 98 11/20/17 08:00 11/20/17 09:52 11/20/17 08:54 11/20/17 09:52 11/20/17 08:00 Vitals Reviewed GEN: WDWN, alert, cooperative HEENT: NCAT, PERRL, EOMI HEART: RRR, +S1S2, NO MRG LUNG: wheezes bilaterally, no respiratory distress ABD: soft, NT, ND, No HSM, No masses EXT: normal pedal pulses, normal capillary refill NEURO: awake, alert, no focal deficits SKIN: warm, dry PSYCH: normal mood, normal affect - Medications Medications: Current Medications Acetaminophen (Tylenol 325mg Tab) 650 mg PO Q6 PRN PRN Reason: Pain, Mild (1-3)/headache Last Admin: 11/15/17 05:42 Dose: 650 mg Acetylcysteine (Acetylcysteine 20%) 2 ml INH RBID [facility] Last Admin: 11/20/17 07:36 Dose: 2 ml Albuterol Sulfate (Albuterol 0.083% Inhal Aby (2.5 Mg/3 Ml) Ud) 2.5 mg INH RQ4 PRN PRN Reason: Shortness of Breath Last Admin: 11/19/17 21:40 Dose: 2.5 mg Albuterol/Ipratropium (Duoneb 3 Mg/0.5 Mg (3 Ml) Ud) 3 ml INH RQID [facility] Last Admin: 11/20/17 07:36 Dose: 3 ml Anastrozole (Arimidex 1 Mg Tab) 1 mg PO DAILY [facility] Last Admin: 11/20/17 09:55 Dose: 1 mg Aspirin (Ecotrin) 325 mg PO DAILY [facility] Last Admin: 11/20/17 09:54 Dose: 325 mg Atorvastatin Calcium (Lipitor) 40 mg PO DAILY [facility] Last Admin: 11/20/17 09:52 Dose: 40 mg Dicyclomine HCl (Bentyl) 10 mg PO QID PRN PRN Reason: Pain, moderate (4-7) Last Admin: 11/16/17 08:39 Dose: 10 mg Enoxaparin Sodium (Lovenox) 40 mg SC DAILY [facility] PRN Reason: Protocol Last Admin: 11/20/17 09:53 Dose: 40 mg Gabapentin (Neurontin) 600 mg PO Q8 [facility] Last Admin: 11/20/17 09:52 Dose: 600 mg Guaifenesin (Mucinex La) 600 mg PO Q12 [facility] Last Admin: 11/20/17 09:52 Dose: 600 mg Guaifenesin (Robitussin) 100 mg PO Q6 PRN PRN Reason: Cough Lidocaine (Lidoderm) 1 ea TD DAILY PRN PRN Reason: Pain, moderate (4-7) Last Admin: 11/12/17 08:46 Dose: 1 ea Losartan Potassium (Cozaar) 50 mg PO DAILY [facility] Last Admin: 11/20/17 09:52 Dose: 50 mg Methimazole (Tapazole) 15 mg PO DAILY [facility] Last Admin: 11/20/17 09:55 Dose: 15 mg Methylprednisolone (Solu-Medrol) 60 mg IV BID [facility] Stop: 11/20/17 23:59 Last Admin: 11/20/17 09:46 Dose: 60 mg Methylprednisolone (Solu-Medrol) 30 mg IVP Q12H [facility] Metoprolol Succinate (Toprol Xl) 25 mg PO DAILY [facility] Last Admin: 11/20/17 09:51 Dose: 25 mg Mirtazapine (Remeron) 15 mg PO HS [facility] Last Admin: 11/19/17 21:51 Dose: 15 mg Ondansetron HCl (Zofran Inj) 4 mg IVP Q4 PRN PRN Reason: Nausea/Vomiting Last Admin: 11/13/17 19:35 Dose: 4 mg Oxycodone/Acetaminophen (Percocet 5/325 Mg Tab) 1 tab PO Q6 PRN PRN Reason: Pain, severe (8-10) Stop: 11/22/17 16:27 Last Admin: 11/19/17 16:35 Dose: 1 tab Pantoprazole Sodium (Protonix Ec Tab) 40 mg PO DAILY [facility] Last Admin: 11/20/17 09:51 Dose: 40 mg Sucralfate (Carafate Oral Susp) 1 gm PO BID [facility] Last Admin: 07/15/18 09:53 Dose: 1 gm Theophylline (Maximiliano-24) 100 mg PO Q12 [facility] Last Admin: 11/20/17 09:52 Dose: 100 mg Vancomycin HCl (Vancocin (Oral/Rectal Use)) 125 mg PO Q6 [facility] PRN Reason: Protocol Last Admin: 11/20/17 09:56 Dose: 125 mg Zolpidem Tartrate (Ambien) 5 mg PO HS PRN PRN Reason: Insomnia Last Admin: 11/19/17 22:13 Dose: 5 mg - Labs Labs: 11/20/17 05:45 11/20/17 05:45 PT 11.1 Seconds (9.8-13.1) 11/10/17 17:32 INR 1.0 (0.9-1.2) 11/10/17 17:32 APTT 20.7 Seconds (25.6-37.1) L 11/10/17 17:32 Assessment and Plan - Assessment and Plan (Free Text) Plan: 67 y/o female with multiple chronic conditions - COPD, CHF, Hyperthyroidism, Hx of Breast CA s/p mastectomy , Chronic Right Lymphedema, was brought in because of SOB - found to be in resp failure due to CHF and COPD exacerbation. Patient was admitted to ICU- placed on Bipap, started on IV diuretics and IV Steroids. tolerating High Flow Oxygen well, and saturating well, continues to be on 30 LPM 40% o2 Developed lower abd pain and diarrhea - C diff +, started on PO Vanco, GI consulted. 1. Acute Hypercapneic Hypoxic Respiratory Failure on Chronic Resp Failure sec to COPD and CHF exacerbation - Pt was admitted to ICU - started on Bipap- changed to High Flow Oxygen 30 liters/40% FiO2, tolerating well - attempt to titrate down to baseline 3L NC - cont Duonebs - d/c IV diuretics due to hypotension- will give prn - on Solumedrol IV - Pulm consulted - Dr Benz - ECHO: 60% EF (2) Acute exacerbation of CHF (congestive heart failure) systolic and diastolic Dysfunction, EF 40 % ( 2017) -Diuretics- will give prn -cont Losartan , changed Metoprolol to succinate - Cardio consulted 3) Acute COPD exacerbation -Continue Duonebs - cont IV Solumedrol - completed tx with PO Augmentin - d/c Daliresp as this may also cause abd pain , diarrhea 4. Mild Troponin Elevation prob sec to Demand Ischemia from Resp Failure Cardio consulted- Dr Lopez cont ASA, Statin, BB, ARB 5. C Diff Colitis Stool + for antigen however neg toxin , however since pt is symptomatic - has diarrhea and lower abd pain, empirically started PO Flagyl- changed to PO Vanco by GI will cont to monitor rpt C diff negative - isolation d/c 6) Hyperthyroidism -TSH low - increased Methimazole to 15 mg daily -rpt TSH 7) HTN - cont Toprol and Losartan 8. Hx of Breact CA - cont Arimidex 9. Abd Pain - CT of abd and Pelvis DVT prophylaxis Lovenox
[2017-11-20] MEDS: Albuterol 0.083% Inhal Sol (2.5 mg/3 mL) UD INH PRN ×2 (10:30→23:46)
[2017-11-20] MEDS: Oxycodone/Acetaminophen 5/325 mg Tab PO PRN (16:04)
[2017-11-21] MEDS: Vancomycin 500 mg (Oral/Rectal USE) PO SCH ×4 (04:43→21:46)
[2017-11-21 06:18] LABS: MEAN CELL VOLUME 88.3 fl (81.0-99.0); MEAN CORPUSCULAR HEMOGLOBIN 28.3 pg (27.0-31.0); MEAN CORPUSCULAR HGB CONC 32.1 g/dL (33.0-37.0); RBC 4.24 Mil/uL (3.80-5.20); RED CELL DISTRIBUTION WIDTH 18.4 % (11.5-14.5); WHITE BLOOD COUNT 10.5 K/uL (4.8-10.8)
[2017-11-21 06:28] LABS: BLOOD UREA NITROGEN 27 mg/dl (7-17); CALCIUM 8.5 mg/dL (8.4-10.2); GFR NON-AFRICAN AMERICAN > 60
[2017-11-21] MEDS: Acetylcysteine 20% Inhal Soln (4ml) INH SCH ×2 (07:30→18:59)
[2017-11-21] MEDS: Albuterol-Ipratrop 3 mg / 0.5 (3 ml) UD INH SCH ×4 (07:30→18:59)
[2017-11-21] MEDS: Sucralfate 1 gm/10 ml Oral Susp UD PO SCH ×2 (08:42→16:07)
[2017-11-21] MEDS: guaiFENesin 600 mg ER Tab PO SCH ×2 (08:45→21:46)
[2017-11-21] MEDS: Theophylline 100mg ER 24 hrs Cap PO SCH (08:45)
[2017-11-21] MEDS: Pantoprazole 40 mg EC Tab PO SCH (08:45)
[2017-11-21] MEDS: Metoprolol Succinate 25 mg XL Tab PO SCH (08:45)
[2017-11-21] MEDS: Enoxaparin 40 mg Syringe SC SCH (08:46)
[2017-11-21] MEDS: Aspirin 325 mg EC Tablets PO SCH (08:46)
[2017-11-21] MEDS: MethylPREDNISolone 40 mg Vial IVP SCH ×2 (08:47→21:46)
[2017-11-21] MEDS ORDERED: methylPREDNISolone 30 MG in Sodium Chloride 0.9% 50 ML IV SCH (09:00)
[2017-11-21] MEDS: methIMAzole 5 MG TAB PO SCH (09:01)
[2017-11-21] MEDS ORDERED: Theophylline 100mg ER 24 hrs Cap PO STA (09:43)
--- NOTE | 2017-11-21 09:57 | CP.PCM.PN ---
Subjective - Date & Time of Evaluation Date of Evaluation: 11/21/17 Time of Evaluation: 09:57 - Subjective Subjective: Seen on morning rounds in telemetry. Interim events and recent lab data reviewed in the EMR. Discussed patient status with her nurse. Remains dyspneic with conversation and ambulation. Mood appears to be relatibvely good. Sleep is improved with mirtazapine and zolpidem. Lymphedema of RUE is reduced, no erythema of increased warmth. No presacral or lower extremity edema. No cyanosis. Some residual/resolving ecchymoses over the lower extremities are still noted. Pharynx is pink and moist. Neck is supple and trachea midline. Chest is hyper-resonant on percussion. Breath sounds are very much diminished bilaterally. Few scattered high-pitched late expiratory wheezes are still present in both lungs. Dry rales and sonorous rhonchi are present in the lower lobes. Heart sounds are very distant and regular. The abdomen appears soft to palpation, bowel sounds are good. Late stage/advanced COPD responding less than hoped-for with current regimen. Will increase theophylline dose further and watch for adverse effects, monitoring blood levels. She seems to have been intolerant of roflumilast with GI side effects. Previously had been on theophylline for a long time, but of late had developed difficulty maintaining a stable therapeutic level. Supra-therapeutic levels were found on occasion, without any seizures thankfully. Steroid dosage is slowly being decreased. Objective - Vital Signs/Intake and Output Vital Signs (last 24 hours): Temp Pulse Resp BP Pulse Ox 97.7 F 82 20 154/77 H 95 11/21/17 08:25 11/21/17 08:47 11/21/17 08:25 11/21/17 08:47 11/21/17 08:25 Intake and Output: 11/20/17 11/21/17 23:59 11:59 Intake Total 300 Balance 300 - Medications Medications: Current Medications Acetaminophen (Tylenol 325mg Tab) 650 mg PO Q6 PRN PRN Reason: Pain, Mild (1-3)/headache Last Admin: 11/15/17 05:42 Dose: 650 mg Acetylcysteine (Acetylcysteine 20%) 2 ml INH RBID [facility] Last Admin: 11/21/17 07:30 Dose: 2 ml Albuterol Sulfate (Albuterol 0.083% Inhal Aby (2.5 Mg/3 Ml) Ud) 2.5 mg INH RQ4 PRN PRN Reason: Shortness of Breath Last Admin: 11/20/17 23:46 Dose: 2.5 mg Albuterol/Ipratropium (Duoneb 3 Mg/0.5 Mg (3 Ml) Ud) 3 ml INH RQID [facility] Last Admin: 11/21/17 07:30 Dose: 3 ml Anastrozole (Arimidex 1 Mg Tab) 1 mg PO DAILY [facility] Last Admin: 11/21/17 08:50 Dose: 1 mg Aspirin (Ecotrin) 325 mg PO DAILY [facility] Last Admin: 11/21/17 08:46 Dose: 325 mg Atorvastatin Calcium (Lipitor) 40 mg PO DAILY [facility] Last Admin: 11/21/17 08:45 Dose: 40 mg Dicyclomine HCl (Bentyl) 10 mg PO QID PRN PRN Reason: Pain, moderate (4-7) Last Admin: 11/16/17 08:39 Dose: 10 mg Enoxaparin Sodium (Lovenox) 40 mg SC DAILY [facility] PRN Reason: Protocol Last Admin: 11/21/17 08:46 Dose: 40 mg Gabapentin (Neurontin) 600 mg PO Q8 [facility] Last Admin: 11/21/17 08:45 Dose: 600 mg Guaifenesin (Mucinex La) 600 mg PO Q12 [facility] Last Admin: 11/21/17 08:45 Dose: 600 mg Guaifenesin (Robitussin) 100 mg PO Q6 PRN PRN Reason: Cough Lidocaine (Lidoderm) 1 ea TD DAILY PRN PRN Reason: Pain, moderate (4-7) Last Admin: 11/12/17 08:46 Dose: 1 ea Losartan Potassium (Cozaar) 50 mg PO DAILY [facility] Last Admin: 11/21/17 08:47 Dose: 50 mg Methimazole (Tapazole) 15 mg PO DAILY [facility] Last Admin: 11/21/17 09:01 Dose: 15 mg Methylprednisolone (Solu-Medrol) 30 mg IVP Q12H [facility] Last Admin: 11/21/17 08:47 Dose: 30 mg Metoprolol Succinate (Toprol Xl) 25 mg PO DAILY [facility] Last Admin: 11/21/17 08:45 Dose: 25 mg Mirtazapine (Remeron) 15 mg PO HS [facility] Last Admin: 11/20/17 21:24 Dose: 15 mg Ondansetron HCl (Zofran Inj) 4 mg IVP Q4 PRN PRN Reason: Nausea/Vomiting Last Admin: 11/13/17 19:35 Dose: 4 mg Oxycodone/Acetaminophen (Percocet 5/325 Mg Tab) 1 tab PO Q6 PRN PRN Reason: Pain, severe (8-10) Stop: 11/22/17 16:27 Last Admin: 11/20/17 16:04 Dose: 1 tab Pantoprazole Sodium (Protonix Ec Tab) 40 mg PO DAILY [facility] Last Admin: 11/21/17 08:45 Dose: 40 mg Sucralfate (Carafate Oral Susp) 1 gm PO BID [facility] Last Admin: 11/21/17 08:42 Dose: 1 gm Theophylline (Maximiliano-24) 300 mg PO DAILY [facility] Vancomycin HCl (Vancocin (Oral/Rectal Use)) 125 mg PO Q6 [facility] PRN Reason: Protocol Last Admin: 11/21/17 09:02 Dose: 125 mg Zolpidem Tartrate (Ambien) 5 mg PO HS PRN PRN Reason: Insomnia Last Admin: 11/20/17 21:27 Dose: 5 mg - Labs Labs: 11/21/17 04:20 11/21/17 04:20 PT 11.1 Seconds (9.8-13.1) 11/10/17 17:32 INR 1.0 (0.9-1.2) 11/10/17 17:32 APTT 20.7 Seconds (25.6-37.1) L 11/10/17 17:32
--- NOTE | 2017-11-21 11:59 | CP.PCM.PN ---
Subjective - Date & Time of Evaluation Date of Evaluation: 11/21/17 Time of Evaluation: 11:58 - Subjective Subjective: no diarrhea Objective - Vital Signs/Intake and Output Vital Signs (last 24 hours): Temp Pulse Resp BP Pulse Ox 97.7 F 82 20 154/77 H 95 11/21/17 08:25 11/21/17 08:47 11/21/17 08:25 11/21/17 08:47 11/21/17 08:25 - Medications Medications: Current Medications Acetaminophen (Tylenol 325mg Tab) 650 mg PO Q6 PRN PRN Reason: Pain, Mild (1-3)/headache Last Admin: 11/15/17 05:42 Dose: 650 mg Acetylcysteine (Acetylcysteine 20%) 2 ml INH RBID [facility] Last Admin: 11/21/17 07:30 Dose: 2 ml Albuterol Sulfate (Albuterol 0.083% Inhal Aby (2.5 Mg/3 Ml) Ud) 2.5 mg INH RQ4 PRN PRN Reason: Shortness of Breath Last Admin: 11/20/17 23:46 Dose: 2.5 mg Albuterol/Ipratropium (Duoneb 3 Mg/0.5 Mg (3 Ml) Ud) 3 ml INH RQID [facility] Last Admin: 11/21/17 11:28 Dose: 3 ml Anastrozole (Arimidex 1 Mg Tab) 1 mg PO DAILY [facility] Last Admin: 11/21/17 08:50 Dose: 1 mg Aspirin (Ecotrin) 325 mg PO DAILY [facility] Last Admin: 11/21/17 08:46 Dose: 325 mg Atorvastatin Calcium (Lipitor) 40 mg PO DAILY [facility] Last Admin: 11/21/17 08:45 Dose: 40 mg Dicyclomine HCl (Bentyl) 10 mg PO QID PRN PRN Reason: Pain, moderate (4-7) Last Admin: 11/16/17 08:39 Dose: 10 mg Enoxaparin Sodium (Lovenox) 40 mg SC DAILY [facility] PRN Reason: Protocol Last Admin: 11/21/17 08:46 Dose: 40 mg Gabapentin (Neurontin) 600 mg PO Q8 [facility] Last Admin: 11/21/17 08:45 Dose: 600 mg Guaifenesin (Mucinex La) 600 mg PO Q12 [facility] Last Admin: 11/21/17 08:45 Dose: 600 mg Guaifenesin (Robitussin) 100 mg PO Q6 PRN PRN Reason: Cough Lidocaine (Lidoderm) 1 ea TD DAILY PRN PRN Reason: Pain, moderate (4-7) Last Admin: 11/12/17 08:46 Dose: 1 ea Losartan Potassium (Cozaar) 50 mg PO DAILY [facility] Last Admin: 11/21/17 08:47 Dose: 50 mg Methimazole (Tapazole) 15 mg PO DAILY [facility] Last Admin: 11/21/17 09:01 Dose: 15 mg Methylprednisolone (Solu-Medrol) 30 mg IVP Q12H [facility] Last Admin: 11/21/17 08:47 Dose: 30 mg Metoprolol Succinate (Toprol Xl) 25 mg PO DAILY [facility] Last Admin: 11/21/17 08:45 Dose: 25 mg Mirtazapine (Remeron) 15 mg PO HS [facility] Last Admin: 11/20/17 21:24 Dose: 15 mg Ondansetron HCl (Zofran Inj) 4 mg IVP Q4 PRN PRN Reason: Nausea/Vomiting Last Admin: 11/13/17 19:35 Dose: 4 mg Oxycodone/Acetaminophen (Percocet 5/325 Mg Tab) 1 tab PO Q6 PRN PRN Reason: Pain, severe (8-10) Stop: 11/22/17 16:27 Last Admin: 11/20/17 16:04 Dose: 1 tab Pantoprazole Sodium (Protonix Ec Tab) 40 mg PO DAILY [facility] Last Admin: 11/21/17 08:45 Dose: 40 mg Sucralfate (Carafate Oral Susp) 1 gm PO BID [facility] Last Admin: 11/21/17 08:42 Dose: 1 gm Theophylline (Maximiliano-24) 300 mg PO DAILY [facility] Vancomycin HCl (Vancocin (Oral/Rectal Use)) 125 mg PO Q6 [facility] PRN Reason: Protocol Last Admin: 11/21/17 09:02 Dose: 125 mg Zolpidem Tartrate (Ambien) 5 mg PO HS PRN PRN Reason: Insomnia Last Admin: 11/20/17 21:27 Dose: 5 mg - Labs Labs: 11/21/17 04:20 11/21/17 04:20 PT 11.1 Seconds (9.8-13.1) 11/10/17 17:32 INR 1.0 (0.9-1.2) 11/10/17 17:32 APTT 20.7 Seconds (25.6-37.1) L 11/10/17 17:32 - Neck Exam Neck Exam: Normal Inspection - Respiratory Exam Respiratory Exam: Rhonchi, NORMAL BREATHING PATTERN - Cardiovascular Exam Cardiovascular Exam: REGULAR RHYTHM - GI/Abdominal Exam GI & Abdominal Exam: Soft, Normal Bowel Sounds Assessment and Plan - Assessment and Plan (Free Text) Assessment: 67 yo female with cdiff do diarrhea doing well from GI standpoint
--- NOTE | 2017-11-21 12:37 | CP.PCM.PN ---
Subjective - Date & Time of Evaluation Date of Evaluation: 11/21/17 Time of Evaluation: 12:34 - Subjective Subjective: pt states she feels mildly improved however continues to desaturate with mild movement and speaking. tolerating high flow well hd stablem no acute distress Objective - Vital Signs/Intake and Output Vital Signs (last 24 hours): Temp Pulse Resp BP Pulse Ox 97.7 F 82 20 154/77 H 95 11/21/17 08:25 11/21/17 08:47 11/21/17 08:25 11/21/17 08:47 11/21/17 08:25 - Medications Medications: Current Medications Acetaminophen (Tylenol 325mg Tab) 650 mg PO Q6 PRN PRN Reason: Pain, Mild (1-3)/headache Last Admin: 11/15/17 05:42 Dose: 650 mg Acetylcysteine (Acetylcysteine 20%) 2 ml INH RBID [facility] Last Admin: 11/21/17 07:30 Dose: 2 ml Albuterol Sulfate (Albuterol 0.083% Inhal Aby (2.5 Mg/3 Ml) Ud) 2.5 mg INH RQ4 PRN PRN Reason: Shortness of Breath Last Admin: 11/20/17 23:46 Dose: 2.5 mg Albuterol/Ipratropium (Duoneb 3 Mg/0.5 Mg (3 Ml) Ud) 3 ml INH RQID [facility] Last Admin: 11/21/17 11:28 Dose: 3 ml Anastrozole (Arimidex 1 Mg Tab) 1 mg PO DAILY [facility] Last Admin: 11/21/17 08:50 Dose: 1 mg Aspirin (Ecotrin) 325 mg PO DAILY [facility] Last Admin: 11/21/17 08:46 Dose: 325 mg Atorvastatin Calcium (Lipitor) 40 mg PO DAILY [facility] Last Admin: 11/21/17 08:45 Dose: 40 mg Dicyclomine HCl (Bentyl) 10 mg PO QID PRN PRN Reason: Pain, moderate (4-7) Last Admin: 11/16/17 08:39 Dose: 10 mg Enoxaparin Sodium (Lovenox) 40 mg SC DAILY [facility] PRN Reason: Protocol Last Admin: 11/21/17 08:46 Dose: 40 mg Gabapentin (Neurontin) 600 mg PO Q8 [facility] Last Admin: 11/21/17 08:45 Dose: 600 mg Guaifenesin (Mucinex La) 600 mg PO Q12 [facility] Last Admin: 11/21/17 08:45 Dose: 600 mg Guaifenesin (Robitussin) 100 mg PO Q6 PRN PRN Reason: Cough Lidocaine (Lidoderm) 1 ea TD DAILY PRN PRN Reason: Pain, moderate (4-7) Last Admin: 11/12/17 08:46 Dose: 1 ea Losartan Potassium (Cozaar) 50 mg PO DAILY [facility] Last Admin: 11/21/17 08:47 Dose: 50 mg Methimazole (Tapazole) 15 mg PO DAILY [facility] Last Admin: 11/21/17 09:01 Dose: 15 mg Methylprednisolone (Solu-Medrol) 30 mg IVP Q12H [facility] Last Admin: 11/21/17 08:47 Dose: 30 mg Metoprolol Succinate (Toprol Xl) 25 mg PO DAILY [facility] Last Admin: 11/21/17 08:45 Dose: 25 mg Mirtazapine (Remeron) 15 mg PO HS [facility] Last Admin: 11/20/17 21:24 Dose: 15 mg Ondansetron HCl (Zofran Inj) 4 mg IVP Q4 PRN PRN Reason: Nausea/Vomiting Last Admin: 11/13/17 19:35 Dose: 4 mg Oxycodone/Acetaminophen (Percocet 5/325 Mg Tab) 1 tab PO Q6 PRN PRN Reason: Pain, severe (8-10) Stop: 11/22/17 16:27 Last Admin: 11/20/17 16:04 Dose: 1 tab Pantoprazole Sodium (Protonix Ec Tab) 40 mg PO DAILY [facility] Last Admin: 11/21/17 08:45 Dose: 40 mg Sucralfate (Carafate Oral Susp) 1 gm PO BID [facility] Last Admin: 11/21/17 08:42 Dose: 1 gm Theophylline (Maximiliano-24) 300 mg PO DAILY [facility] Vancomycin HCl (Vancocin (Oral/Rectal Use)) 125 mg PO Q6 [facility] PRN Reason: Protocol Last Admin: 11/21/17 09:02 Dose: 125 mg Zolpidem Tartrate (Ambien) 5 mg PO HS PRN PRN Reason: Insomnia Last Admin: 11/20/17 21:27 Dose: 5 mg - Labs Labs: 11/21/17 04:20 11/21/17 04:20 PT 11.1 Seconds (9.8-13.1) 11/10/17 17:32 INR 1.0 (0.9-1.2) 11/10/17 17:32 APTT 20.7 Seconds (25.6-37.1) L 11/10/17 17:32 - Constitutional Appears: Non-toxic, No Acute Distress - Head Exam Head Exam: ATRAUMATIC, NORMOCEPHALIC - Eye Exam Eye Exam: EOMI, Normal appearance, PERRL - ENT Exam ENT Exam: Mucous Membranes Moist, Normal Oropharynx - Respiratory Exam Respiratory Exam: Wheezes. absent: Respiratory Distress - Cardiovascular Exam Cardiovascular Exam: RRR, +S1, +S2 - GI/Abdominal Exam GI & Abdominal Exam: Soft, Normal Bowel Sounds - Extremities Exam Extremities Exam: Normal Capillary Refill, Normal Inspection - Neurological Exam Neurological Exam: Alert, Awake - Psychiatric Exam Psychiatric exam: Normal Affect, Normal Mood - Skin Skin Exam: Dry, Petechiae, Warm Assessment and Plan - Assessment and Plan (Free Text) Assessment: 7 y/o female with multiple chronic conditions - COPD, CHF, Hyperthyroidism, Hx of Breast CA s/p mastectomy , Chronic Right Lymphedema, was brought in because of SOB - found to be in resp failure due to CHF and COPD exacerbation. Patient was admitted to ICU- placed on Bipap, started on IV diuretics and IV Steroids. tolerating High Flow Oxygen well, and saturating well, continues to be on 30 LPM 40% o2 Developed lower abd pain and diarrhea - C diff +, started on PO Vanco, GI consulted. 1. Acute Hypercapneic Hypoxic Respiratory Failure on Chronic Resp Failure sec to COPD and CHF exacerbation - Pt was admitted to ICU - started on Bipap- changed to High Flow Oxygen 30 liters/40% FiO2, tolerating well - goal is to titrate patient down to baseline 3L NC at home, however patient continues to desaturate with speaking and movement. unable to participate in PT due to dyspnea. - cont Duonebs - d/c IV diuretics due to hypotension- will give prn - on Solumedrol IV - Pulm consulted - Dr Benz - ECHO: 60% EF (2) Acute exacerbation of CHF (congestive heart failure) systolic and diastolic Dysfunction, EF 40 % ( 2017) -Diuretics- will give prn -cont Losartan , changed Metoprolol to succinate - Cardio consulted 3) Acute COPD exacerbation -Continue Duonebs - cont IV Solumedrol - completed tx with PO Augmentin - d/c Daliresp as this may also cause abd pain , diarrhea 4. Mild Troponin Elevation prob sec to Demand Ischemia from Resp Failure Cardio consulted- Dr Lopez cont ASA, Statin, BB, ARB 5. C Diff Colitis Stool + for antigen however neg toxin , however since pt is symptomatic - has diarrhea and lower abd pain, empirically started PO Flagyl- changed to PO Vanco by GI will cont to monitor rpt C diff negative - isolation d/c 6) Hyperthyroidism -TSH low - increased Methimazole to 15 mg daily -rpt TSH 7) HTN - cont Toprol and Losartan 8. Hx of Breact CA - cont Arimidex 9. Abd Pain - CT of abd and Pelvis DVT prophylaxis Lovenox
[2017-11-21] MEDS: Albuterol 0.083% Inhal Sol (2.5 mg/3 mL) UD INH PRN (13:29)
[2017-11-21] MEDS: Oxycodone/Acetaminophen 5/325 mg Tab PO PRN (15:26)
[2017-11-21] MEDS: guaiFENesin 100 mg/5 ml Syrup UD PO PRN (21:55)
[2017-11-22] MEDS: Albuterol-Ipratrop 3 mg / 0.5 (3 ml) UD INH SCH ×6 (00:07→19:00)
[2017-11-22] MEDS: Vancomycin 500 mg (Oral/Rectal USE) PO SCH ×4 (04:30→21:59)
[2017-11-22] MEDS: Acetylcysteine 20% Inhal Soln (4ml) INH SCH ×2 (07:15→19:00)
[2017-11-22] MEDS: Enoxaparin 40 mg Syringe SC SCH (08:40)
[2017-11-22] MEDS: Metoprolol Succinate 25 mg XL Tab PO SCH (08:41)
[2017-11-22] MEDS: MethylPREDNISolone 40 mg Vial IVP SCH ×2 (08:42→21:59)
[2017-11-22] MEDS: Pantoprazole 40 mg EC Tab PO SCH (08:42)
[2017-11-22] MEDS: guaiFENesin 600 mg ER Tab PO SCH ×2 (08:43→21:58)
[2017-11-22] MEDS: Aspirin 325 mg EC Tablets PO SCH (08:43)
[2017-11-22] MEDS ORDERED: Theophylline 300mg ER 24 hrs Cap PO SCH (09:00)
--- NOTE | 2017-11-22 09:30 | CP.PCM.PN ---
Subjective - Date & Time of Evaluation Date of Evaluation: 11/22/17 Time of Evaluation: 09:30 - Subjective Subjective: Seen on morning rounds. Continues to have congested, but non-productive cough. Still with dyspnea on exertion. Slightly less dyspnea noted with conversation. Theophylline dose is being gradually increased, and thus far tolerated well. Mildly tachycardic at rest, partially due to increased WOB as well as maximiliano effect. SpO2 on HFNC is 95% and level of O2 and flow were both reduced (25L/35%). SpO2 did decrease to 93% on the above settings. No dependant edema, no cyanosis, no calf tenderness. Hyper-resonant chest percussion, markedly diminished breath sounds. Sonorous rhonchi in both lower lobes. Scattered high-pitch late E wheezes, better than yesterday. Heart sounds are distant and mildly tachy. Will monitor maximiliano level in AM, increased dose to 300MG yesterday and today. Increase Theophylline ER to 400MG tomorrow AM. Will reduce solumedrol to 30MG POOD tomorrow AM. Oxygen changed to standard nasal canula at 4LPM humidified. Objective - Vital Signs/Intake and Output Vital Signs (last 24 hours): Temp Pulse Resp BP Pulse Ox 97.6 F 61 20 163/75 H 99 11/22/17 08:32 11/22/17 08:43 11/22/17 08:32 11/22/17 08:43 11/22/17 08:32 Intake and Output: 11/21/17 11/22/17 23:59 11:59 Intake Total 400 Balance 400 - Medications Medications: Current Medications Acetaminophen (Tylenol 325mg Tab) 650 mg PO Q6 PRN PRN Reason: Pain, Mild (1-3)/headache Last Admin: 11/15/17 05:42 Dose: 650 mg Acetylcysteine (Acetylcysteine 20%) 2 ml INH RBID [facility] Last Admin: 11/22/17 07:15 Dose: 2 ml Albuterol Sulfate (Albuterol 0.083% Inhal Aby (2.5 Mg/3 Ml) Ud) 2.5 mg INH RQ4 PRN PRN Reason: Shortness of Breath Last Admin: 11/21/17 13:29 Dose: 2.5 mg Albuterol/Ipratropium (Duoneb 3 Mg/0.5 Mg (3 Ml) Ud) 3 ml INH RQ4 [facility] Last Admin: 11/22/17 07:15 Dose: 3 ml Anastrozole (Arimidex 1 Mg Tab) 1 mg PO DAILY [facility] Last Admin: 11/22/17 08:47 Dose: 1 mg Aspirin (Ecotrin) 325 mg PO DAILY [facility] Last Admin: 11/22/17 08:43 Dose: 325 mg Atorvastatin Calcium (Lipitor) 40 mg PO DAILY [facility] Last Admin: 11/22/17 08:43 Dose: 40 mg Dicyclomine HCl (Bentyl) 10 mg PO QID PRN PRN Reason: Pain, moderate (4-7) Last Admin: 11/16/17 08:39 Dose: 10 mg Enoxaparin Sodium (Lovenox) 40 mg SC DAILY [facility] PRN Reason: Protocol Last Admin: 11/22/17 08:40 Dose: 40 mg Gabapentin (Neurontin) 600 mg PO Q8 [facility] Last Admin: 11/22/17 08:43 Dose: 600 mg Guaifenesin (Mucinex La) 600 mg PO Q12 [facility] Last Admin: 11/22/17 08:43 Dose: 600 mg Guaifenesin (Robitussin) 100 mg PO Q6 PRN PRN Reason: Cough Last Admin: 11/21/17 21:55 Dose: 100 mg Lidocaine (Lidoderm) 1 ea TD DAILY PRN PRN Reason: Pain, moderate (4-7) Last Admin: 11/12/17 08:46 Dose: 1 ea Losartan Potassium (Cozaar) 50 mg PO DAILY [facility] Last Admin: 11/22/17 08:43 Dose: 50 mg Methimazole (Tapazole) 15 mg PO DAILY [facility] Last Admin: 11/21/17 09:01 Dose: 15 mg Methylprednisolone (Solu-Medrol) 30 mg IVP Q12H [facility] Last Admin: 11/22/17 08:42 Dose: 30 mg Metoprolol Succinate (Toprol Xl) 25 mg PO DAILY [facility] Last Admin: 11/22/17 08:41 Dose: 25 mg Mirtazapine (Remeron) 15 mg PO HS [facility] Last Admin: 11/21/17 21:46 Dose: 15 mg Ondansetron HCl (Zofran Inj) 4 mg IVP Q4 PRN PRN Reason: Nausea/Vomiting Last Admin: 11/13/17 19:35 Dose: 4 mg Oxycodone/Acetaminophen (Percocet 5/325 Mg Tab) 1 tab PO Q6 PRN PRN Reason: Pain, severe (8-10) Stop: 11/22/17 16:27 Last Admin: 11/21/17 15:26 Dose: 1 tab Pantoprazole Sodium (Protonix Ec Tab) 40 mg PO DAILY [facility] Last Admin: 11/22/17 08:42 Dose: 40 mg Sucralfate (Carafate Tab) 1 gm PO BID [facility] Last Admin: 11/21/17 17:35 Dose: 1 gm Theophylline (Maximiliano-24) 300 mg PO DAILY [facility] Vancomycin HCl (Vancocin (Oral/Rectal Use)) 125 mg PO Q6 [facility] PRN Reason: Protocol Last Admin: 11/22/17 04:30 Dose: 125 mg Zolpidem Tartrate (Ambien) 5 mg PO HS PRN PRN Reason: Insomnia Last Admin: 11/21/17 21:58 Dose: 5 mg - Labs Labs: 11/21/17 04:20 11/21/17 04:20 PT 11.1 Seconds (9.8-13.1) 11/10/17 17:32 INR 1.0 (0.9-1.2) 11/10/17 17:32 APTT 20.7 Seconds (25.6-37.1) L 11/10/17 17:32
[2017-11-22] MEDS: methIMAzole 5 MG TAB PO SCH (09:53)
--- NOTE | 2017-11-22 09:57 | CP.PCM.PN ---
<Linda Epps - Last Filed: 11/22/17 16:04> Subjective - Date & Time of Evaluation Date of Evaluation: 11/22/17 Time of Evaluation: 09:30 - Subjective Subjective: Patient was seen and examined at bedside with Dr. Camilo, she reports feeling well today. She states that she has decreased abdominal pain and now her stools are described as sticky. She reports good appetite. Patient was counseled on the benefits of getting out of the bed and into the chair with physical therapy today, she reports she will do her best to be active in her physical therapy. She reports coughing but is unable to expel any mucus she has. She denies chest pain, dyspnea, headaches, diarrhea, and constipation. Objective - Vital Signs/Intake and Output Vital Signs (last 24 hours): Temp Pulse Resp BP Pulse Ox 97.6 F 61 20 163/75 H 99 11/22/17 08:32 11/22/17 08:43 11/22/17 08:32 11/22/17 08:43 11/22/17 08:32 - Medications Medications: Current Medications Acetaminophen (Tylenol 325mg Tab) 650 mg PO Q6 PRN PRN Reason: Pain, Mild (1-3)/headache Last Admin: 11/15/17 05:42 Dose: 650 mg Acetylcysteine (Acetylcysteine 20%) 2 ml INH RBID [facility] Last Admin: 11/22/17 07:15 Dose: 2 ml Albuterol Sulfate (Albuterol 0.083% Inhal Aby (2.5 Mg/3 Ml) Ud) 2.5 mg INH RQ4 PRN PRN Reason: Shortness of Breath Last Admin: 11/21/17 13:29 Dose: 2.5 mg Albuterol/Ipratropium (Duoneb 3 Mg/0.5 Mg (3 Ml) Ud) 3 ml INH RQ4 [facility] Last Admin: 11/22/17 07:15 Dose: 3 ml Anastrozole (Arimidex 1 Mg Tab) 1 mg PO DAILY [facility] Last Admin: 11/22/17 08:47 Dose: 1 mg Aspirin (Ecotrin) 325 mg PO DAILY [facility] Last Admin: 11/22/17 08:43 Dose: 325 mg Atorvastatin Calcium (Lipitor) 40 mg PO DAILY [facility] Last Admin: 11/22/17 08:43 Dose: 40 mg Dicyclomine HCl (Bentyl) 10 mg PO QID PRN PRN Reason: Pain, moderate (4-7) Last Admin: 11/16/17 08:39 Dose: 10 mg Enoxaparin Sodium (Lovenox) 40 mg SC DAILY [facility] PRN Reason: Protocol Last Admin: 11/22/17 08:40 Dose: 40 mg Gabapentin (Neurontin) 600 mg PO Q8 [facility] Last Admin: 11/22/17 08:43 Dose: 600 mg Guaifenesin (Mucinex La) 600 mg PO Q12 [facility] Last Admin: 11/22/17 08:43 Dose: 600 mg Guaifenesin (Robitussin) 100 mg PO Q6 PRN PRN Reason: Cough Last Admin: 11/21/17 21:55 Dose: 100 mg Lidocaine (Lidoderm) 1 ea TD DAILY PRN PRN Reason: Pain, moderate (4-7) Last Admin: 11/12/17 08:46 Dose: 1 ea Losartan Potassium (Cozaar) 50 mg PO DAILY [facility] Last Admin: 11/22/17 08:43 Dose: 50 mg Methimazole (Tapazole) 15 mg PO DAILY [facility] Last Admin: 11/22/17 09:53 Dose: 15 mg Methylprednisolone (Solu-Medrol) 30 mg IVP Q12H [facility] Last Admin: 11/22/17 08:42 Dose: 30 mg Metoprolol Succinate (Toprol Xl) 25 mg PO DAILY [facility] Last Admin: 11/22/17 08:41 Dose: 25 mg Mirtazapine (Remeron) 15 mg PO HS [facility] Last Admin: 11/21/17 21:46 Dose: 15 mg Ondansetron HCl (Zofran Inj) 4 mg IVP Q4 PRN PRN Reason: Nausea/Vomiting Last Admin: 11/13/17 19:35 Dose: 4 mg Oxycodone/Acetaminophen (Percocet 5/325 Mg Tab) 1 tab PO Q6 PRN PRN Reason: Pain, severe (8-10) Stop: 11/22/17 16:27 Last Admin: 11/21/17 15:26 Dose: 1 tab Pantoprazole Sodium (Protonix Ec Tab) 40 mg PO DAILY [facility] Last Admin: 11/22/17 08:42 Dose: 40 mg Sucralfate (Carafate Tab) 1 gm PO BID [facility] Last Admin: 11/22/17 09:51 Dose: 1 gm Theophylline (Maximiliano-24) 300 mg PO DAILY [facility] Last Admin: 11/22/17 09:52 Dose: 300 mg Vancomycin HCl (Vancocin (Oral/Rectal Use)) 125 mg PO Q6 [facility] PRN Reason: Protocol Last Admin: 11/22/17 09:52 Dose: 125 mg Zolpidem Tartrate (Ambien) 5 mg PO HS PRN PRN Reason: Insomnia Last Admin: 11/21/17 21:58 Dose: 5 mg - Labs Labs: 11/21/17 04:20 11/21/17 04:20 PT 11.1 Seconds (9.8-13.1) 11/10/17 17:32 INR 1.0 (0.9-1.2) 11/10/17 17:32 APTT 20.7 Seconds (25.6-37.1) L 11/10/17 17:32 - Constitutional Appears: Well, Non-toxic, No Acute Distress, Chronically Ill - Head Exam Head Exam: NORMAL INSPECTION - Eye Exam Eye Exam: Normal appearance - ENT Exam ENT Exam: Mucous Membranes Moist - Neck Exam Neck Exam: Normal Inspection (+ Tracheostomy scar present at midline. ). absent : Lymphadenopathy, Tenderness, Thyromegaly - Respiratory Exam Respiratory Exam: Decreased Breath Sounds, Rales (Rales present bilaterally. ). absent: Chest Wall Tenderness, Rhonchi, Wheezes, Stridor - Cardiovascular Exam Cardiovascular Exam: REGULAR RHYTHM, +S1, +S2. absent: Clicks, JVD, Murmur - GI/Abdominal Exam GI & Abdominal Exam: Soft, Normal Bowel Sounds. absent: Distended, Guarding, Tenderness, Organomegaly, Rebound - Extremities Exam Extremities Exam: Normal Capillary Refill, Normal Inspection - Neurological Exam Neurological Exam: Alert, Awake, Oriented x3 - Psychiatric Exam Psychiatric exam: Normal Affect, Normal Mood - Skin Skin Exam: Dry, Normal Color, Warm Assessment and Plan (1) Acute exacerbation of chronic obstructive pulmonary disease (COPD) Assessment & Plan: Continue current management: Use of Duoneb - Pulm consulted: Dr. Benz, Solumedrol will be decreased from 30mg IV Q12h ( current dose) to Solumedrol 30mg po tomorrow in the am. - Theophylline was increased to 300mg today. Tomorrow, Theophylline will be increased to 400mg AM as per Dr. Benz's recommendations. - Oxygen: Patient changed from HFNC to 4 L humidified Nasal cannula. - Patient was encouraged to participate in Physical therapy. - Patient would benefit from chest physiotherapy. Status: Acute (2) Acute exacerbation of CHF (congestive heart failure) Assessment & Plan: Continue current management: Diuretics prn - Losartan and metoprolol succinate. Status: Acute (3) C. difficile colitis Assessment & Plan: Continue current management: Vanco po day 4. Continue Vancomycin for a total of 10 days of treatment. Status: Acute (4) Hyperthyroidism Assessment & Plan: Continue current management: Methimazole 15mg po d. Status: Chronic (5) HTN (hypertension) Assessment & Plan: Continue current management: Metoprolol and Losartan. Status: Chronic (6) Hx of breast cancer Assessment & Plan: Continue current management: Arimidex. Status: Acute (7) DVT prophylaxis Assessment & Plan: Continue Lovenox Status: Acute - Assessment and Plan (Free Text) Assessment: 67 yo f with history of COPD, CHF, hypothyroidism, hs of breast Ca s/p mastectomy, chronic RUE lymphedema was brought into the ED because of dyspnea. Patient was then found to be in respiratory failure secondary to COPD and CHF excerbation. Patient was admitted to ICU where she was on bipap at night and IV steroids and diuretics. Patient is no longer in ICU, she is currently on a trial of 4L humidified Nasal cannula. <Georgia Camilo - Last Filed: 11/22/17 17:01> Objective - Vital Signs/Intake and Output Vital Signs (last 24 hours): Temp Pulse Resp BP Pulse Ox 97.2 F L 118 H 24 96/59 L 98 11/22/17 16:49 11/22/17 16:49 11/22/17 16:49 11/22/17 16:49 11/22/17 16:49 - Medications Medications: Current Medications Acetaminophen (Tylenol 325mg Tab) 650 mg PO Q6 PRN PRN Reason: Pain, Mild (1-3)/headache Last Admin: 11/15/17 05:42 Dose: 650 mg Acetylcysteine (Acetylcysteine 20%) 2 ml INH RBID [facility] Last Admin: 11/22/17 07:15 Dose: 2 ml Albuterol Sulfate (Albuterol 0.083% Inhal Aby (2.5 Mg/3 Ml) Ud) 2.5 mg INH RQ4 PRN PRN Reason: Shortness of Breath Last Admin: 11/21/17 13:29 Dose: 2.5 mg Albuterol/Ipratropium (Duoneb 3 Mg/0.5 Mg (3 Ml) Ud) 3 ml INH RQ4 [facility] Last Admin: 11/22/17 15:27 Dose: 3 ml Anastrozole (Arimidex 1 Mg Tab) 1 mg PO DAILY [facility] Last Admin: 11/22/17 08:47 Dose: 1 mg Aspirin (Ecotrin) 325 mg PO DAILY [facility] Last Admin: 11/22/17 08:43 Dose: 325 mg Atorvastatin Calcium (Lipitor) 40 mg PO DAILY [facility] Last Admin: 11/22/17 08:43 Dose: 40 mg Dicyclomine HCl (Bentyl) 10 mg PO QID PRN PRN Reason: Pain, moderate (4-7) Last Admin: 11/16/17 08:39 Dose: 10 mg Enoxaparin Sodium (Lovenox) 40 mg SC DAILY [facility] PRN Reason: Protocol Last Admin: 11/22/17 08:40 Dose: 40 mg Gabapentin (Neurontin) 600 mg PO Q8 [facility] Last Admin: 11/22/17 16:08 Dose: 600 mg Guaifenesin (Mucinex La) 600 mg PO Q12 [facility] Last Admin: 11/22/17 08:43 Dose: 600 mg Guaifenesin (Robitussin) 100 mg PO Q6 PRN PRN Reason: Cough Last Admin: 11/21/17 21:55 Dose: 100 mg Lidocaine (Lidoderm) 1 ea TD DAILY PRN PRN Reason: Pain, moderate (4-7) Last Admin: 11/12/17 08:46 Dose: 1 ea Losartan Potassium (Cozaar) 50 mg PO DAILY [facility] Last Admin: 11/22/17 08:43 Dose: 50 mg Methimazole (Tapazole) 15 mg PO DAILY [facility] Last Admin: 11/22/17 09:53 Dose: 15 mg Methylprednisolone (Solu-Medrol) 30 mg IVP Q12H [facility] Last Admin: 11/22/17 08:42 Dose: 30 mg Metoprolol Succinate (Toprol Xl) 25 mg PO DAILY [facility] Last Admin: 11/22/17 08:41 Dose: 25 mg Mirtazapine (Remeron) 15 mg PO HS [facility] Last Admin: 11/21/17 21:46 Dose: 15 mg Ondansetron HCl (Zofran Inj) 4 mg IVP Q4 PRN PRN Reason: Nausea/Vomiting Last Admin: 11/13/17 19:35 Dose: 4 mg Pantoprazole Sodium (Protonix Ec Tab) 40 mg PO DAILY [facility] Last Admin: 11/22/17 08:42 Dose: 40 mg Sucralfate (Carafate Tab) 1 gm PO BID [facility] Last Admin: 11/22/17 16:08 Dose: 1 gm Theophylline (Uniphyl) 400 mg PO DAILY [facility] Vancomycin HCl (Vancocin (Oral/Rectal Use)) 125 mg PO Q6 [facility] PRN Reason: Protocol Last Admin: 11/22/17 16:09 Dose: 125 mg Zolpidem Tartrate (Ambien) 5 mg PO HS PRN PRN Reason: Insomnia Last Admin: 11/21/17 21:58 Dose: 5 mg - Labs Labs: 11/21/17 04:20 11/21/17 04:20 PT 11.1 Seconds (9.8-13.1) 11/10/17 17:32 INR 1.0 (0.9-1.2) 11/10/17 17:32 APTT 20.7 Seconds (25.6-37.1) L 11/10/17 17:32 Attending/Attestation - Attestation I have personally seen and examined this patient.: Yes I have fully participated in the care of the patient.: Yes I have reviewed all pertinent clinical information, including history, physical exam and plan: Yes Notes (Text): Physical Deconditioning - PT consult -Plan to d/c pt to TCU once respiratory status is stable - High Flow changed to 4 liters Oxygen /NC - we will continue to monitor resp status with physical activity and if stable d/c to TCU
[2017-11-22] MEDS: Oxycodone/Acetaminophen 5/325 mg Tab PO PRN (11:24)
[2017-11-23] MEDS: Albuterol-Ipratrop 3 mg / 0.5 (3 ml) UD INH SCH ×6 (00:20→19:28)
[2017-11-23] MEDS: Vancomycin 500 mg (Oral/Rectal USE) PO SCH ×4 (04:18→22:10)
--- NOTE | 2017-11-23 06:54 | CP.PCM.PN ---
<Linda Epps - Last Filed: 11/23/17 15:15> Subjective - Date & Time of Evaluation Date of Evaluation: 11/23/17 Time of Evaluation: 07:45 - Subjective Subjective: Patient was seen and examined at bedside with Dr. Camilo. She reports she slept very well last night without the need for the HFNC or Bipap. She has been comfortable with the 4L humidified NC and states that she is only dyspneic on exertion. She states that she was able to participate in Physical therapy yesterday and she sat in a chair for 1 and 1/2 hours. Appetite is reported as good and she states that she has a few BM, sticky in description. Denies chest pain, dyspnea (currently), diarrhea, abdominal pain, constipation, and headaches. Patient developed Tachycardia and dyspnea during her physical therapy, patient will be kept a few more days until she tolerates physical therapy. Objective - Vital Signs/Intake and Output Vital Signs (last 24 hours): Temp Pulse Resp BP Pulse Ox 97.2 F L 101 H 18 127/73 94 L 11/23/17 05:21 11/23/17 05:21 11/23/17 05:21 11/23/17 05:21 11/23/17 05:21 Intake and Output: 11/22/17 11/23/17 18:59 06:59 Intake Total 400 Balance 400 - Medications Medications: Current Medications Acetaminophen (Tylenol 325mg Tab) 650 mg PO Q6 PRN PRN Reason: Pain, Mild (1-3)/headache Last Admin: 11/15/17 05:42 Dose: 650 mg Acetylcysteine (Acetylcysteine 20%) 2 ml INH RBID [facility] TO [facility] Last Admin: 11/22/17 19:00 Dose: 2 ml Albuterol Sulfate (Albuterol 0.083% Inhal Aby (2.5 Mg/3 Ml) Ud) 2.5 mg INH RQ4 PRN PRN Reason: Shortness of Breath Last Admin: 11/21/17 13:29 Dose: 2.5 mg Albuterol/Ipratropium (Duoneb 3 Mg/0.5 Mg (3 Ml) Ud) 3 ml INH RQ4 [facility]RE[facility] Last Admin: 11/23/17 03:21 Dose: 3 ml Anastrozole (Arimidex 1 Mg Tab) 1 mg PO DAILY [facility] Last Admin: 11/22/17 08:47 Dose: 1 mg Aspirin (Ecotrin) 325 mg PO DAILY [facility] Last Admin: 11/22/17 08:43 Dose: 325 mg Atorvastatin Calcium (Lipitor) 40 mg PO DAILY [facility] Last Admin: 11/22/17 08:43 Dose: 40 mg Dicyclomine HCl (Bentyl) 10 mg PO QID PRN PRN Reason: Pain, moderate (4-7) Last Admin: 11/16/17 08:39 Dose: 10 mg Enoxaparin Sodium (Lovenox) 40 mg SC DAILY [facility] PRN Reason: Protocol Last Admin: 11/22/17 08:40 Dose: 40 mg Gabapentin (Neurontin) 600 mg PO Q8 [facility] Last Admin: 11/23/17 00:31 Dose: 600 mg Guaifenesin (Mucinex La) 600 mg PO Q12 [facility] Last Admin: 11/22/17 21:58 Dose: 600 mg Guaifenesin (Robitussin) 100 mg PO Q6 PRN PRN Reason: Cough Last Admin: 11/21/17 21:55 Dose: 100 mg Lidocaine (Lidoderm) 1 ea TD DAILY PRN PRN Reason: Pain, moderate (4-7) Last Admin: 11/12/17 08:46 Dose: 1 ea Losartan Potassium (Cozaar) 50 mg PO DAILY [facility] Last Admin: 11/22/17 08:43 Dose: 50 mg Methimazole (Tapazole) 15 mg PO DAILY [facility] Last Admin: 11/22/17 09:53 Dose: 15 mg Methylprednisolone (Solu-Medrol) 30 mg IVP Q12H [facility] Last Admin: 11/22/17 21:59 Dose: 30 mg Metoprolol Succinate (Toprol Xl) 25 mg PO DAILY [facility] Last Admin: 11/22/17 08:41 Dose: 25 mg Mirtazapine (Remeron) 15 mg PO HS [facility] Last Admin: 11/22/17 21:58 Dose: 15 mg Ondansetron HCl (Zofran Inj) 4 mg IVP Q4 PRN PRN Reason: Nausea/Vomiting Last Admin: 11/13/17 19:35 Dose: 4 mg Pantoprazole Sodium (Protonix Ec Tab) 40 mg PO DAILY [facility] Last Admin: 11/22/17 08:42 Dose: 40 mg Sucralfate (Carafate Tab) 1 gm PO BID [facility] Last Admin: 11/22/17 16:08 Dose: 1 gm Theophylline (Uniphyl) 400 mg PO DAILY [facility] Vancomycin HCl (Vancocin (Oral/Rectal Use)) 125 mg PO Q6 [facility] PRN Reason: Protocol Last Admin: 11/23/17 04:18 Dose: 125 mg Zolpidem Tartrate (Ambien) 5 mg PO HS PRN PRN Reason: Insomnia Last Admin: 11/22/17 21:58 Dose: 5 mg - Labs Labs: 11/21/17 04:20 11/21/17 04:20 PT 11.1 Seconds (9.8-13.1) 11/10/17 17:32 INR 1.0 (0.9-1.2) 11/10/17 17:32 APTT 20.7 Seconds (25.6-37.1) L 11/10/17 17:32 - Constitutional Appears: Well, Non-toxic, No Acute Distress - Head Exam Head Exam: NORMAL INSPECTION - Eye Exam Eye Exam: Normal appearance - ENT Exam ENT Exam: Mucous Membranes Moist - Neck Exam Neck Exam: Normal Inspection (+ Tracheostomy scar). absent: Lymphadenopathy, Thyromegaly - Respiratory Exam Respiratory Exam: Decreased Breath Sounds. absent: Chest Wall Tenderness, Rales , Rhonchi, Wheezes, Respiratory Distress, Stridor - Cardiovascular Exam Cardiovascular Exam: REGULAR RHYTHM, RRR, +S1, +S2. absent: Diastolic murmur, Gallop, JVD, Murmur - GI/Abdominal Exam GI & Abdominal Exam: Soft, Normal Bowel Sounds. absent: Distended, Firm, Guarding, Rigid, Tenderness, Organomegaly, Pulsatile Mass, Rebound - Extremities Exam Extremities Exam: Normal Capillary Refill, Normal Inspection. absent: Pedal Edema, Tenderness - Back Exam Back Exam: NORMAL INSPECTION (+ right mid-back scar. ). absent: CVA tenderness (L), CVA tenderness (R), paraspinal tenderness, tenderness - Neurological Exam Neurological Exam: Alert, Awake, Oriented x3 - Psychiatric Exam Psychiatric exam: Normal Affect, Normal Mood - Skin Skin Exam: Dry, Intact, Normal Color, Warm Assessment and Plan (1) Acute exacerbation of chronic obstructive pulmonary disease (COPD) Status: Acute (2) Acute exacerbation of CHF (congestive heart failure) Status: Acute (3) C. difficile colitis Status: Acute (4) Hyperthyroidism Status: Chronic (5) HTN (hypertension) Status: Chronic (6) Hx of breast cancer Status: Acute (7) DVT prophylaxis Status: Acute - Assessment and Plan (Free Text) Assessment: 67 yo f with history of COPD, CHF, hypothyroidism, hs of breast Ca s/p mastectomy, chronic RUE lymphedema was brought into the ED because of dyspnea. Patient was then found to be in respiratory failure secondary to COPD and CHF excerbation. Patient was admitted to ICU where she was on bipap at night and IV steroids and diuretics. Patient is no longer in ICU, she is currently tolerating of 4L humidified Nasal cannula. Tentative TCU transfer once patient is able to tolerate Physical therapy. Plan: (1) Acute exacerbation of chronic obstructive pulmonary disease (COPD) Assessment & Plan: Continue current management: Use of Duoneb - Pulm consulted: Dr. Benz, Solumedrol will be decreased from 30mg IV Q12h ( current dose) to Solumedrol 30mg PO tomorrow in the am. - Theophylline was increased to 400mg this morning. Repeat Theophylline level tomorrow morning. - Oxygen: Patient tolerating 4 L humidified Nasal cannula. - Continue Physical therapy. - Chest physiotherapy ordered for patient. (2) Acute exacerbation of CHF (congestive heart failure) Assessment & Plan: Continue current management: Diuretics prn - Losartan and metoprolol succinate. (3) C. difficile colitis Assessment & Plan: Continue current management: Vanco po day 5. Continue Vancomycin for a total of 10 days of treatment. (4) Hyperthyroidism Assessment & Plan: Continue current management: Methimazole 15mg po d. (5) HTN (hypertension) Assessment & Plan: Continue current management: Metoprolol and Losartan. (6) Hx of breast cancer Assessment & Plan: Continue current management: Arimidex. (7) DVT prophylaxis Assessment & Plan: Continue Lovenox. <Georgia Camilo - Last Filed: 11/23/17 16:15> Objective - Vital Signs/Intake and Output Vital Signs (last 24 hours): Temp Pulse Resp BP Pulse Ox 97.9 F 120 H 20 123/65 94 L 11/23/17 15:49 11/23/17 15:49 11/23/17 15:49 11/23/17 15:49 11/23/17 15:49 - Medications Medications: Current Medications Acetaminophen (Tylenol 325mg Tab) 650 mg PO Q6 PRN PRN Reason: Pain, Mild (1-3)/headache Last Admin: 11/15/17 05:42 Dose: 650 mg Acetylcysteine (Acetylcysteine 20%) 2 ml INH RBID PENDING SALE TO [facility] Last Admin: 11/23/17 07:53 Dose: 2 ml Albuterol Sulfate (Albuterol 0.083% Inhal Aby (2.5 Mg/3 Ml) Ud) 2.5 mg INH RQ4 PRN PRN Reason: Shortness of Breath Last Admin: 11/21/17 13:29 Dose: 2.5 mg Albuterol/Ipratropium (Duoneb 3 Mg/0.5 Mg (3 Ml) Ud) 3 ml INH RQ4 [facility] Last Admin: 11/23/17 15:42 Dose: 3 ml Anastrozole (Arimidex 1 Mg Tab) 1 mg PO DAILY [facility] Last Admin: 11/23/17 09:00 Dose: 1 mg Aspirin (Ecotrin) 325 mg PO DAILY [facility] Last Admin: 11/23/17 08:58 Dose: 325 mg Atorvastatin Calcium (Lipitor) 40 mg PO DAILY [facility] Last Admin: 11/23/17 09:03 Dose: 40 mg Dicyclomine HCl (Bentyl) 10 mg PO QID PRN PRN Reason: Pain, moderate (4-7) Last Admin: 11/16/17 08:39 Dose: 10 mg Enoxaparin Sodium (Lovenox) 40 mg SC DAILY [facility] PRN Reason: Protocol Last Admin: 11/23/17 09:03 Dose: 40 mg Gabapentin (Neurontin) 600 mg PO Q8 [facility] Last Admin: 11/23/17 08:59 Dose: 600 mg Guaifenesin (Mucinex La) 600 mg PO Q12 [facility] Last Admin: 11/23/17 09:03 Dose: 600 mg Guaifenesin (Robitussin) 100 mg PO Q6 PRN PRN Reason: Cough Last Admin: 11/21/17 21:55 Dose: 100 mg Lidocaine (Lidoderm) 1 ea TD DAILY PRN PRN Reason: Pain, moderate (4-7) Last Admin: 11/12/17 08:46 Dose: 1 ea Losartan Potassium (Cozaar) 50 mg PO DAILY [facility] Last Admin: 11/23/17 09:01 Dose: 50 mg Methimazole (Tapazole) 15 mg PO DAILY [facility] Last Admin: 11/23/17 08:58 Dose: 15 mg Methylprednisolone (Solu-Medrol) 30 mg IVP Q12H [facility] Last Admin: 11/23/17 08:58 Dose: 30 mg Metoprolol Succinate (Toprol Xl) 25 mg PO DAILY [facility] Last Admin: 11/23/17 09:01 Dose: 25 mg Mirtazapine (Remeron) 15 mg PO HS [facility] Last Admin: 11/22/17 21:58 Dose: 15 mg Ondansetron HCl (Zofran Inj) 4 mg IVP Q4 PRN PRN Reason: Nausea/Vomiting Last Admin: 11/13/17 19:35 Dose: 4 mg Pantoprazole Sodium (Protonix Ec Tab) 40 mg PO DAILY [facility] Last Admin: 11/23/17 08:59 Dose: 40 mg Sucralfate (Carafate Tab) 1 gm PO BID [facility] Last Admin: 11/23/17 08:59 Dose: 1 gm Theophylline (Uniphyl) 400 mg PO DAILY [facility] Last Admin: 11/23/17 09:02 Dose: 400 mg Vancomycin HCl (Vancocin (Oral/Rectal Use)) 125 mg PO Q6 [facility] PRN Reason: Protocol Last Admin: 11/23/17 09:02 Dose: 125 mg Zolpidem Tartrate (Ambien) 5 mg PO HS PRN PRN Reason: Insomnia Last Admin: 11/22/17 21:58 Dose: 5 mg - Labs Labs: 11/21/17 04:20 11/21/17 04:20 PT 11.1 Seconds (9.8-13.1) 11/10/17 17:32 INR 1.0 (0.9-1.2) 11/10/17 17:32 APTT 20.7 Seconds (25.6-37.1) L 11/10/17 17:32 Attending/Attestation - Attestation I have personally seen and examined this patient.: Yes I have fully participated in the care of the patient.: Yes I have reviewed all pertinent clinical information, including history, physical exam and plan: Yes
[2017-11-23] MEDS: Acetylcysteine 20% Inhal Soln (4ml) INH SCH ×2 (07:53→19:28)
[2017-11-23] MEDS: MethylPREDNISolone 40 mg Vial IVP SCH ×2 (08:58→22:09)
[2017-11-23] MEDS: methIMAzole 5 MG TAB PO SCH (08:58)
[2017-11-23] MEDS: Aspirin 325 mg EC Tablets PO SCH (08:58)
[2017-11-23] MEDS: Pantoprazole 40 mg EC Tab PO SCH (08:59)
[2017-11-23] MEDS: Metoprolol Succinate 25 mg XL Tab PO SCH (09:01)
[2017-11-23] MEDS: THEOPHYLLINE 400 MG T24(UNIPHYL) PO SCH (09:02)
[2017-11-23] MEDS: Enoxaparin 40 mg Syringe SC SCH (09:03)
[2017-11-23] MEDS: guaiFENesin 600 mg ER Tab PO SCH ×2 (09:03→22:10)
--- NOTE | 2017-11-23 10:35 | CP.PCM.PN ---
Subjective - Date & Time of Evaluation Date of Evaluation: 11/23/17 Time of Evaluation: 10:35 - Subjective Subjective: The patient was seen on rounds in telemetry. She does claim to feel slightly more comfortable today than previously. She was able to sleep somewhat better last night as well. She still does have dyspnea on exertion, but this is slightly improved as well. She was able to do some degree of physical therapy yesterday. She is mildly tachycardic on the current medical regimen and this may be exacerbated by the addition of THEOPHYLLINE. THEOPHYLLINE blood level was within accepted range. SpO2 is 93% on standard nasal cannula at 4 L/m. On exam the breath sounds are markedly diminished as before, but there appears to be some slight improvement in the air exchange bilaterally. No audible wheezing is present. There are a few dry rales present in the bases posteriorly. Heart sounds are distant and the rhythm is tachycardic but otherwise unremarkable. The abdomen is soft and nontender with normal bowel sounds. There is no dependent edema or cyanosis. Resolving ecchymoses of both lower extremities are noted. No calf tenderness or palpable venous cords. THEOPHYLLINE has been increased to 400 mg daily starting this morning. We'll continue to monitor THEOPHYLLINE blood level and proceed accordingly. Parenteral corticosteroids will be reduced to 30 mg of SOLU-MEDROL once daily starting tomorrow. The patient is a good candidate for transitional care. Objective - Vital Signs/Intake and Output Vital Signs (last 24 hours): Temp Pulse Resp BP Pulse Ox 97.7 F 101 H 18 118/68 94 L 11/23/17 07:50 11/23/17 09:01 11/23/17 07:50 11/23/17 09:01 11/23/17 07:50 Intake and Output: 11/22/17 11/23/17 23:59 11:59 Intake Total 400 Balance 400 - Medications Medications: Current Medications Acetaminophen (Tylenol 325mg Tab) 650 mg PO Q6 PRN PRN Reason: Pain, Mild (1-3)/headache Last Admin: 11/15/17 05:42 Dose: 650 mg Acetylcysteine (Acetylcysteine 20%) 2 ml INH RBID [facility] Last Admin: 11/23/17 07:53 Dose: 2 ml Albuterol Sulfate (Albuterol 0.083% Inhal Aby (2.5 Mg/3 Ml) Ud) 2.5 mg INH RQ4 PRN PRN Reason: Shortness of Breath Last Admin: 11/21/17 13:29 Dose: 2.5 mg Albuterol/Ipratropium (Duoneb 3 Mg/0.5 Mg (3 Ml) Ud) 3 ml INH RQ4 [facility] Last Admin: 11/23/17 07:53 Dose: 3 ml Anastrozole (Arimidex 1 Mg Tab) 1 mg PO DAILY [facility] Last Admin: 11/23/17 09:00 Dose: 1 mg Aspirin (Ecotrin) 325 mg PO DAILY [facility] Last Admin: 11/23/17 08:58 Dose: 325 mg Atorvastatin Calcium (Lipitor) 40 mg PO DAILY [facility] Last Admin: 11/23/17 09:03 Dose: 40 mg Dicyclomine HCl (Bentyl) 10 mg PO QID PRN PRN Reason: Pain, moderate (4-7) Last Admin: 11/16/17 08:39 Dose: 10 mg Enoxaparin Sodium (Lovenox) 40 mg SC DAILY [facility] PRN Reason: Protocol Last Admin: 11/23/17 09:03 Dose: 40 mg Gabapentin (Neurontin) 600 mg PO Q8 [facility] Last Admin: 11/23/17 08:59 Dose: 600 mg Guaifenesin (Mucinex La) 600 mg PO Q12 [facility] Last Admin: 11/23/17 09:03 Dose: 600 mg Guaifenesin (Robitussin) 100 mg PO Q6 PRN PRN Reason: Cough Last Admin: 11/21/17 21:55 Dose: 100 mg Lidocaine (Lidoderm) 1 ea TD DAILY PRN PRN Reason: Pain, moderate (4-7) Last Admin: 11/12/17 08:46 Dose: 1 ea Losartan Potassium (Cozaar) 50 mg PO DAILY [facility] Last Admin: 11/23/17 09:01 Dose: 50 mg Methimazole (Tapazole) 15 mg PO DAILY [facility] Last Admin: 11/23/17 08:58 Dose: 15 mg Methylprednisolone (Solu-Medrol) 30 mg IVP Q12H [facility] Last Admin: 11/23/17 08:58 Dose: 30 mg Metoprolol Succinate (Toprol Xl) 25 mg PO DAILY [facility] Last Admin: 11/23/17 09:01 Dose: 25 mg Mirtazapine (Remeron) 15 mg PO HS [facility] Last Admin: 11/22/17 21:58 Dose: 15 mg Ondansetron HCl (Zofran Inj) 4 mg IVP Q4 PRN PRN Reason: Nausea/Vomiting Last Admin: 11/13/17 19:35 Dose: 4 mg Pantoprazole Sodium (Protonix Ec Tab) 40 mg PO DAILY [facility] Last Admin: 11/23/17 08:59 Dose: 40 mg Sucralfate (Carafate Tab) 1 gm PO BID [facility] Last Admin: 11/23/17 08:59 Dose: 1 gm Theophylline (Uniphyl) 400 mg PO DAILY [facility] Last Admin: 11/23/17 09:02 Dose: 400 mg Vancomycin HCl (Vancocin (Oral/Rectal Use)) 125 mg PO Q6 [facility] PRN Reason: Protocol Last Admin: 11/23/17 09:02 Dose: 125 mg Zolpidem Tartrate (Ambien) 5 mg PO HS PRN PRN Reason: Insomnia Last Admin: 11/22/17 21:58 Dose: 5 mg - Labs Labs: 11/21/17 04:20 11/21/17 04:20 PT 11.1 Seconds (9.8-13.1) 11/10/17 17:32 INR 1.0 (0.9-1.2) 11/10/17 17:32 APTT 20.7 Seconds (25.6-37.1) L 11/10/17 17:32
[2017-11-23] MEDS: Ipratropium 0.02% Inhal Soln (0.5 mg/2.5 ml) UD IH SCH (23:39)
[2017-11-23] MEDS: Levalbuterol 0.63 MG/3 ML Inhal Soln UD INH SCH (23:39)
[2017-11-24] MEDS: Ipratropium 0.02% Inhal Soln (0.5 mg/2.5 ml) UD IH SCH ×5 (05:00→19:07)
[2017-11-24] MEDS: Levalbuterol 0.63 MG/3 ML Inhal Soln UD INH SCH ×2 (05:00→07:16)
[2017-11-24] MEDS: Vancomycin 500 mg (Oral/Rectal USE) PO SCH ×4 (05:15→21:53)
[2017-11-24 05:33] LABS: BASO % 0.1 % (0.0-2.0); HEMOGLOBIN 12.5 g/dL (12.0-16.0); LYMPH # 0.3 K/uL (1.0-4.3); LYMPH % 2.1 % (20.0-40.0); MEAN CELL VOLUME 88.7 fl (81.0-99.0); MEAN CORPUSCULAR HEMOGLOBIN 28.4 pg (27.0-31.0); MEAN PLATELET VOLUME 7.6 fl (7.2-11.7); MONO # 0.4 K/uL (0.0-0.8); MONO % 3.1 % (0.0-10.0); NEUT # 12.9 K/uL (1.8-7.0); NEUT % 94.7 % (50.0-75.0); PLATELET COUNT 326 K/uL (130-400); RED CELL DISTRIBUTION WIDTH 18.9 % (11.5-14.5); WHITE BLOOD COUNT 13.6 K/uL (4.8-10.8)
[2017-11-24 06:04] LABS: ALB/GLOB RATIO 1.3 (1.0-2.1); ALBUMIN 2.9 g/dL (3.5-5.0); ALT/SGPT 43 U/L (9-52); AST/SGOT 30 U/L (14-36); BLOOD UREA NITROGEN 20 mg/dl (7-17); CALCIUM 7.7 mg/dL (8.4-10.2); GFR NON-AFRICAN AMERICAN > 60
[2017-11-24] MEDS: Acetylcysteine 20% Inhal Soln (4ml) INH SCH (07:16)
[2017-11-24] MEDS: methIMAzole 5 MG TAB PO SCH (08:35)
[2017-11-24] MEDS: MethylPREDNISolone 40 mg Vial IVP SCH (08:36)
[2017-11-24] MEDS: guaiFENesin 600 mg ER Tab PO SCH ×2 (08:36→20:44)
[2017-11-24] MEDS: THEOPHYLLINE 400 MG T24(UNIPHYL) PO SCH (08:38)
[2017-11-24] MEDS: Enoxaparin 40 mg Syringe SC SCH (08:38)
[2017-11-24] MEDS: Metoprolol Succinate 25 mg XL Tab PO SCH (08:39)
[2017-11-24] MEDS: Aspirin 325 mg EC Tablets PO SCH (08:39)
[2017-11-24] MEDS: Pantoprazole 40 mg EC Tab PO SCH (08:40)
[2017-11-24 09:01] LABS: ANISOCYTOSIS SLIGHT; LYMPHOCYTE 1 % (20-50); MONOCYTE 4 % (0-10); MYELOCYTE 1 % (0-0); NEUTROPHIL 92 % (42-75); PLATELET ESTIMATE NORMAL (NORMAL); REACTIVE LYMPHOCYTES 2 % (0-0); TOTAL CELLS COUNTED 100
[2017-11-24 09:02] LABS: LARGE PLATELETS PRESENT
[2017-11-24] MEDS: Metoprolol Succinate 50 mg XL Tab PO SCH (09:38)
[2017-11-24] MEDS ORDERED: methylPREDNISolone 60 MG in Sodium Chloride 0.9% 50 ML IVPB ONE (10:16)
--- NOTE | 2017-11-24 10:22 | CP.PCM.PN ---
Subjective - Date & Time of Evaluation Date of Evaluation: 11/24/17 Time of Evaluation: 10:22 - Subjective Subjective: Seen on morning rounds in telemetry. Case discussed with the hospitalist. Remains tachycardic despite increased methimazole, and TSH is still very low. Endocrinology consult requested for further management. Theophylline up to 400MG daily, blood level requested for tomorrow. Still dyspneic on conversation. Expiratory phase remains prolonged w/o distinct wheezing. Cough is still congested and non-productive. No cyanosis or dependant edema. Extremities are warm to touch. Ecchymoses on LE's continues to clear slowly. Will use one extra dose of solumedrol today. LAMA use only, with SUKHDEV reserved for rescue rx. Further Maximiliano depending on levels. Objective - Vital Signs/Intake and Output Vital Signs (last 24 hours): Temp Pulse Resp BP Pulse Ox 97.3 F L 91 H 18 123/71 96 11/24/17 08:32 11/24/17 09:00 11/24/17 08:32 11/24/17 08:39 11/24/17 08:32 Intake and Output: 11/23/17 11/24/17 23:59 11:59 Intake Total 1000 Balance 1000 - Medications Medications: Current Medications Acetaminophen (Tylenol 325mg Tab) 650 mg PO Q6 PRN PRN Reason: Pain, Mild (1-3)/headache Last Admin: 11/15/17 05:42 Dose: 650 mg Anastrozole (Arimidex 1 Mg Tab) 1 mg PO DAILY [facility] Last Admin: 11/24/17 08:38 Dose: 1 mg Aspirin (Ecotrin) 325 mg PO DAILY [facility] Last Admin: 11/24/17 08:39 Dose: 325 mg Atorvastatin Calcium (Lipitor) 40 mg PO DAILY [facility] Last Admin: 11/24/17 08:39 Dose: 40 mg Dicyclomine HCl (Bentyl) 10 mg PO QID PRN PRN Reason: Pain, moderate (4-7) Last Admin: 11/16/17 08:39 Dose: 10 mg Enoxaparin Sodium (Lovenox) 40 mg SC DAILY [facility] PRN Reason: Protocol Last Admin: 11/24/17 08:38 Dose: 40 mg Gabapentin (Neurontin) 600 mg PO Q8 [facility] Last Admin: 11/24/17 08:36 Dose: 600 mg Guaifenesin (Mucinex La) 600 mg PO Q12 [facility] Last Admin: 11/24/17 08:36 Dose: 600 mg Guaifenesin (Robitussin) 100 mg PO Q6 PRN PRN Reason: Cough Last Admin: 11/21/17 21:55 Dose: 100 mg Methylprednisolone 60 mg/ (Sodium Chloride) 50 mls @ 100 mls/hr IVPB ONCE ONE Stop: 11/24/17 10:45 Ipratropium [place] (Atrovent) 0.5 mg IH RQ4 [facility] Last Admin: 11/24/17 07:17 Dose: 0.5 mg Levalbuterol HCl (Xopenex) 0.63 mg INH RQ4 PRN PRN Reason: Shortness of Breath Lidocaine (Lidoderm) 1 ea TD DAILY PRN PRN Reason: Pain, moderate (4-7) Last Admin: 11/12/17 08:46 Dose: 1 ea Losartan Potassium (Cozaar) 50 mg PO DAILY [facility] Last Admin: 11/24/17 08:37 Dose: 50 mg Methimazole (Tapazole) 15 mg PO DAILY [facility] Last Admin: 11/24/17 08:35 Dose: 15 mg Methylprednisolone (Solu-Medrol) 30 mg IVP DAILY [facility] Last Admin: 11/24/17 08:36 Dose: 30 mg Metoprolol Succinate (Toprol Xl) 50 mg PO DAILY [facility] Last Admin: 11/24/17 09:38 Dose: Not Given Mirtazapine (Remeron) 15 mg PO HS [facility] Last Admin: 11/23/17 22:10 Dose: 15 mg Ondansetron HCl (Zofran Inj) 4 mg IVP Q4 PRN PRN Reason: Nausea/Vomiting Last Admin: 11/13/17 19:35 Dose: 4 mg Pantoprazole Sodium (Protonix Ec Tab) 40 mg PO DAILY [facility] Last Admin: 11/24/17 08:40 Dose: 40 mg Sucralfate (Carafate Tab) 1 gm PO BID [facility] Last Admin: 11/24/17 08:39 Dose: 1 gm Theophylline (Uniphyl) 400 mg PO DAILY [facility] Last Admin: 11/24/17 08:38 Dose: 400 mg Vancomycin HCl (Vancocin (Oral/Rectal Use)) 125 mg PO Q6 [facility] PRN Reason: Protocol Last Admin: 11/24/17 09:39 Dose: 125 mg Zolpidem Tartrate (Ambien) 5 mg PO HS PRN PRN Reason: Insomnia Last Admin: 11/23/17 22:13 Dose: 5 mg - Labs Labs: 11/24/17 04:45 11/24/17 04:45 PT 11.1 Seconds (9.8-13.1) 11/10/17 17:32 INR 1.0 (0.9-1.2) 11/10/17 17:32 APTT 20.7 Seconds (25.6-37.1) L 11/10/17 17:32
--- NOTE | 2017-11-24 11:22 | CP.PCM.PN ---
<Linda Epps - Last Filed: 11/24/17 15:08> Subjective - Date & Time of Evaluation Date of Evaluation: 11/24/17 Time of Evaluation: 09:00 - Subjective Subjective: Patient was seen and examined at bedside with Dr. Camilo. She is dyspneic and is having difficulty finishing her sentences. She reports that she does not want to take part in the Physical therapy today because she feels dyspneic. She states that she did not have a good night last night and she had to be placed on HFNC. She denies chest pain but states she feels a pounding in her chest. Denies chest pain, nausea, vomiting, diarrhea, abdominal pain, and headache. HFNC current settings: 20L and 35%. Patient has tachycardia with movement. Pending transfer to TCU once respiratory symptoms resolve. Objective - Vital Signs/Intake and Output Vital Signs (last 24 hours): Temp Pulse Resp BP Pulse Ox 97.3 F L 91 H 18 123/71 96 11/24/17 08:32 11/24/17 09:00 11/24/17 08:32 11/24/17 08:39 11/24/17 08:32 - Medications Medications: Current Medications Acetaminophen (Tylenol 325mg Tab) 650 mg PO Q6 PRN PRN Reason: Pain, Mild (1-3)/headache Last Admin: 11/15/17 05:42 Dose: 650 mg Anastrozole (Arimidex 1 Mg Tab) 1 mg PO DAILY [facility] Last Admin: 11/24/17 08:38 Dose: 1 mg Aspirin (Ecotrin) 325 mg PO DAILY [facility] Last Admin: 11/24/17 08:39 Dose: 325 mg Atorvastatin Calcium (Lipitor) 40 mg PO DAILY [facility] Last Admin: 11/24/17 08:39 Dose: 40 mg Dicyclomine HCl (Bentyl) 10 mg PO QID PRN PRN Reason: Pain, moderate (4-7) Last Admin: 11/16/17 08:39 Dose: 10 mg Enoxaparin Sodium (Lovenox) 40 mg SC DAILY [facility] PRN Reason: Protocol Last Admin: 11/24/17 08:38 Dose: 40 mg Gabapentin (Neurontin) 600 mg PO Q8 [facility] Last Admin: 11/24/17 08:36 Dose: 600 mg Guaifenesin (Mucinex La) 600 mg PO Q12 [facility] Last Admin: 11/24/17 08:36 Dose: 600 mg Guaifenesin (Robitussin) 100 mg PO Q6 PRN PRN Reason: Cough Last Admin: 11/21/17 21:55 Dose: 100 mg Ipratropium [place] (Atrovent) 0.5 mg IH RQID [facility] Levalbuterol HCl (Xopenex) 0.63 mg INH RQ4 PRN PRN Reason: Shortness of Breath Lidocaine (Lidoderm) 1 ea TD DAILY PRN PRN Reason: Pain, moderate (4-7) Last Admin: 11/12/17 08:46 Dose: 1 ea Losartan Potassium (Cozaar) 50 mg PO DAILY [facility] Last Admin: 11/24/17 08:37 Dose: 50 mg Methimazole (Tapazole) 10 mg PO BID [facility] Methylprednisolone (Solu-Medrol) 30 mg IVP DAILY [facility] Last Admin: 11/24/17 08:36 Dose: 30 mg Metoprolol Succinate (Toprol Xl) 50 mg PO DAILY [facility] Last Admin: 11/24/17 09:38 Dose: Not Given Mirtazapine (Remeron) 15 mg PO HS [facility] Last Admin: 11/23/17 22:10 Dose: 15 mg Ondansetron HCl (Zofran Inj) 4 mg IVP Q4 PRN PRN Reason: Nausea/Vomiting Last Admin: 11/13/17 19:35 Dose: 4 mg Pantoprazole Sodium (Protonix Ec Tab) 40 mg PO DAILY [facility] Last Admin: 11/24/17 08:40 Dose: 40 mg Sucralfate (Carafate Tab) 1 gm PO BID [facility] Last Admin: 11/24/17 08:39 Dose: 1 gm Theophylline (Uniphyl) 400 mg PO DAILY [facility] Last Admin: 11/24/17 08:38 Dose: 400 mg Vancomycin HCl (Vancocin (Oral/Rectal Use)) 125 mg PO Q6 [facility] PRN Reason: Protocol Last Admin: 11/24/17 09:39 Dose: 125 mg Zolpidem Tartrate (Ambien) 5 mg PO HS PRN PRN Reason: Insomnia Last Admin: 11/23/17 22:13 Dose: 5 mg - Labs Labs: 11/24/17 04:45 11/24/17 04:45 PT 11.1 Seconds (9.8-13.1) 11/10/17 17:32 INR 1.0 (0.9-1.2) 11/10/17 17:32 APTT 20.7 Seconds (25.6-37.1) L 11/10/17 17:32 - Constitutional Appears: Well, Non-toxic, No Acute Distress, Chronically Ill - Head Exam Head Exam: NORMAL INSPECTION - Eye Exam Eye Exam: Normal appearance - ENT Exam ENT Exam: Mucous Membranes Moist - Neck Exam Neck Exam: Normal Inspection (+ tracheostmomy scar present at midline. ). absent: Lymphadenopathy, Tenderness, Thyromegaly - Respiratory Exam Respiratory Exam: Decreased Breath Sounds, Rhonchi. absent: Chest Wall Tenderness, Rales, Wheezes, Respiratory Distress, Stridor - Cardiovascular Exam Cardiovascular Exam: REGULAR RHYTHM, RRR, +S1, +S2. absent: Clicks, Gallop, Rubs, Murmur - GI/Abdominal Exam GI & Abdominal Exam: Distended, Soft, Normal Bowel Sounds. absent: Firm, Guarding, Rigid, Tenderness, Organomegaly, Rebound - Neurological Exam Neurological Exam: Alert, Awake, Oriented x3 - Psychiatric Exam Psychiatric exam: Normal Affect, Normal Mood - Skin Skin Exam: Dry, Intact, Normal Color Assessment and Plan (1) Acute exacerbation of chronic obstructive pulmonary disease (COPD) Status: Acute (2) Acute exacerbation of CHF (congestive heart failure) Status: Acute (3) C. difficile colitis Status: Acute (4) Hyperthyroidism Status: Chronic (5) HTN (hypertension) Status: Chronic (6) Hx of breast cancer Status: Acute (7) DVT prophylaxis Status: Acute - Assessment and Plan (Free Text) Assessment: 67 yo f with history of COPD, CHF, hypothyroidism, hs of breast Ca s/p mastectomy, chronic RUE lymphedema was brought into the ED because of dyspnea. Patient was then found to be in respiratory failure secondary to COPD and CHF excerbation. Patient was admitted to ICU where she was on bipap at night and IV steroids and diuretics. She is no longer in the ICU. Patient was on 4 L humidified oxygen and was switched last night to HN[facility] 20L 35% .. Tentative TCU transfer once patient is able to tolerate Physical therapy without being tachycardic. Plan: (1) Acute exacerbation of chronic obstructive pulmonary disease (COPD) Assessment & Plan: Continue current management: - Dr. Benz's recommendations: Change Duoneb to Xopenex due to patient's tachycardia. Patient is now on Solumedrol 30mg PO daily. Additional order of Solu- medrol was given today as she had minimal air entry on physical exam. - Theophylline 400mg daily.. Repeat Theophylline level: 9.3. - Oxygen: Patient on HFNC 20L 35%. - Continue Physical therapy when tolerated. - Continue Chest physiotherapy (2) Acute exacerbation of CHF (congestive heart failure) Assessment & Plan: Continue current management: Diuretics prn - Losartan and metoprolol succinate. (3) C. difficile colitis Assessment & Plan: Continue current management: Vanco po day 6. Continue Vancomycin for a total of 10 days of treatment. (4) Hyperthyroidism Assessment & Plan: Patient's TSH level on repeat: 0.09. - T4: 2.18 - Dr. Vu, Endocrinology recommendation: Methimazole 10mg po BID. (5) HTN (hypertension) Assessment & Plan: Continue current management: Metoprolol and Losartan. (6) Hx of breast cancer Assessment & Plan: Continue current management: Arimidex. (7) DVT prophylaxis Assessment & Plan: Continue Lovenox. <Georgia Camilo - Last Filed: 11/24/17 15:31> Objective - Vital Signs/Intake and Output Vital Signs (last 24 hours): Temp Pulse Resp BP Pulse Ox 97.8 F 101 H 20 133/71 95 11/24/17 12:41 11/24/17 12:41 11/24/17 12:41 11/24/17 12:41 11/24/17 12:41 - Medications Medications: Current Medications Acetaminophen (Tylenol 325mg Tab) 650 mg PO Q6 PRN PRN Reason: Pain, Mild (1-3)/headache Last Admin: 11/15/17 05:42 Dose: 650 mg Anastrozole (Arimidex 1 Mg Tab) 1 mg PO DAILY [facility] Last Admin: 11/24/17 08:38 Dose: 1 mg Aspirin (Ecotrin) 325 mg PO DAILY [facility] Last Admin: 11/24/17 08:39 Dose: 325 mg Atorvastatin Calcium (Lipitor) 40 mg PO DAILY [facility] Last Admin: 11/24/17 08:39 Dose: 40 mg Dicyclomine HCl (Bentyl) 10 mg PO QID PRN PRN Reason: Pain, moderate (4-7) Last Admin: 11/16/17 08:39 Dose: 10 mg Enoxaparin Sodium (Lovenox) 40 mg SC DAILY [facility] PRN Reason: Protocol Last Admin: 11/24/17 08:38 Dose: 40 mg Gabapentin (Neurontin) 600 mg PO Q8 [facility] Last Admin: 11/24/17 08:36 Dose: 600 mg Guaifenesin (Mucinex La) 600 mg PO Q12 [facility] Last Admin: 11/24/17 08:36 Dose: 600 mg Guaifenesin (Robitussin) 100 mg PO Q6 PRN PRN Reason: Cough Last Admin: 11/21/17 21:55 Dose: 100 mg Ipratropium [place] (Atrovent) 0.5 mg IH RQID [facility] Last Admin: 11/24/17 11:30 Dose: 0.5 mg Levalbuterol HCl (Xopenex) 0.63 mg INH RQ4 PRN PRN Reason: Shortness of Breath Lidocaine (Lidoderm) 1 ea TD DAILY PRN PRN Reason: Pain, moderate (4-7) Last Admin: 11/12/17 08:46 Dose: 1 ea Losartan Potassium (Cozaar) 50 mg PO DAILY [facility] Last Admin: 11/24/17 08:37 Dose: 50 mg Methimazole (Tapazole) 10 mg PO BID [facility] Methylprednisolone (Solu-Medrol) 30 mg IVP DAILY [facility] Last Admin: 11/24/17 08:36 Dose: 30 mg Metoprolol Succinate (Toprol Xl) 50 mg PO DAILY [facility] Last Admin: 11/24/17 09:38 Dose: Not Given Mirtazapine (Remeron) 15 mg PO HS [facility] Last Admin: 11/23/17 22:10 Dose: 15 mg Ondansetron HCl (Zofran Inj) 4 mg IVP Q4 PRN PRN Reason: Nausea/Vomiting Last Admin: 11/13/17 19:35 Dose: 4 mg Pantoprazole Sodium (Protonix Ec Tab) 40 mg PO DAILY [facility] Last Admin: 11/24/17 08:40 Dose: 40 mg Sucralfate (Carafate Tab) 1 gm PO BID [facility] Last Admin: 11/24/17 08:39 Dose: 1 gm Theophylline (Uniphyl) 400 mg PO DAILY [facility] Last Admin: 11/24/17 08:38 Dose: 400 mg Vancomycin HCl (Vancocin (Oral/Rectal Use)) 125 mg PO Q6 [facility] PRN Reason: Protocol Last Admin: 11/24/17 09:39 Dose: 125 mg Zolpidem Tartrate (Ambien) 5 mg PO HS PRN PRN Reason: Insomnia Last Admin: 11/23/17 22:13 Dose: 5 mg - Labs Labs: 11/24/17 04:45 11/24/17 04:45 PT 11.1 Seconds (9.8-13.1) 11/10/17 17:32 INR 1.0 (0.9-1.2) 11/10/17 17:32 APTT 20.7 Seconds (25.6-37.1) L 11/10/17 17:32 Attending/Attestation - Attestation I have personally seen and examined this patient.: Yes I have fully participated in the care of the patient.: Yes I have reviewed all pertinent clinical information, including history, physical exam and plan: Yes Notes (Text): Additional: TSH low however T4 also low , prob pt's Hyperthyroidism is mixed with some degree of Euthyroid sick syndrome due to current acute dis and use of Glucvocorticosteroids - Dr Davis consulted- rec increase of Methimazole to 10mg bid Pt back on High Flow Oxygen , discussed case with Dr Benz, will add stat dose of steroid. - Tachycardia prob also due to Theophylline - Duoneb changed to Xopenex
[2017-11-24] MEDS ORDERED: Oxycodone/Acetaminophen 5/325 mg Tab PO ONE (11:46)
[2017-11-24] MEDS ORDERED: Ipratropium 0.02% Inhal Soln (0.5 mg/2.5 ml) UD IH SCH (12:00)
--- NOTE | 2017-11-24 22:29 | CON ---
DATE: 11/24/2017 ENDOCRINOLOGY CONSULTATION LOCATION: Room 408, bed 2. HISTORY OF PRESENT ILLNESS: This is a 67-year-old female, admitted with progressively worsening shortness of breath and evaluated to be in congestive heart failure with underlying COPD and is now being referred for endocrine evaluation because of abnormal thyroid function studies. PAST MEDICAL HISTORY: History of hyperthyroidism, currently on methimazole taken as 15 mg once daily; history of hypertension and dyslipidemia; history of chronic obstructive lung disease; also history of chronic respiratory failure with multiple admissions for congestive heart failure. She has metastatic breast carcinoma with bone metastasis and has received chemotherapy and radiation. She also has chronic lymphedema in the right upper extremity, history of generalized osteoporosis and osteoarthritis. She also has history of chronic anemia with a previous right cephalic vein thrombosis. PAST SURGICAL HISTORY: She had bilateral mastectomies with the right breast in 1998 and the left breast in 2008. She had previous cervical and lumbar fusion surgical procedures. She has prior cholecystectomy. Also, she had total shoulder replacement in some years ago. She also at one point had a tracheostomy placement a year ago. FAMILY HISTORY: Strongly positive for cancer with heart disease and hypertension. SOCIAL HISTORY: The patient has a supportive family. She quit smoking over a year ago. REVIEW OF SYSTEMS: As mentioned above. Admits to generalized body weakness with easy fatigability and tiredness and suboptimal energy level. Also admits to bifrontal headaches and episodic bouts of dizziness and lightheadedness. No chest pains, but admits to progressive shortness of breath initially on exertion and then at rest with paroxysmal nocturnal dyspnea. Her oral intake is variable with nausea, dyspepsia, and habitual constipation. PHYSICAL EXAMINATION: GENERAL: This is an average-built female in no apparent distress. VITAL SIGNS: Blood pressure of 140/80, pulse of 70 beats per minute and regular, temperature 98, and respirations 20. Height is 5 feet 1 inch. Weight is 131 pounds. HEENT: Head is normocephalic. Eyes are anicteric with pink conjunctivae. Funduscopy is not possible at this time. Ears, nose, and throat otherwise normal. NECK: Supple. Thyroid gland is normal in size. No carotid bruits or cervical adenopathy. CARDIOPULMONARY: Some adynamic precordium. S1, S2 are rapid and regular. LUNGS: Show scattered rhonchi. ABDOMEN: Flat, soft with positive bowel sounds. EXTREMITIES: +1 bipedal edema. Pulses are +2 bilaterally. LABORATORY DATA: Chemistries: BUN is 20, sodium 137, potassium 4, chloride 98, CO2 of 30, glucose 211, and creatinine 0.5. Her TSH done twice showed an initial level of 0.11 and a repeat level of 0.09. ASSESSMENT: This is a 67-year-old female with known history of Graves disease with overt hyperthyroidism and has been on medical therapy for some years now, presenting here with congestive heart failure and underlying chronic obstructive lung disease. PLAN OF MANAGEMENT: We will obtain a comprehensive thyroid hormonal profile to include a total T4 or thyroxine level which is the the degree of hyperthyroidism, and we will also adjust her dose regimen accordingly. We will also obtain a free T4, a thyroid-stimulating immunoglobulin and a thyroid peroxidase antibody which will determine whether we are dealing with underlying thyroid autoimmunity. We will obtain serial thyroid studies and titrate her dose regimen accordingly. In the meantime, we will increase and titrate her Tapazole to 10 mg b.i.d. after meals as ordered. This is all part of the plan of management. We will obtain serial chemistries and supplement accordingly needed. We will follow. Polly Vu MD
[2017-11-25] MEDS: Vancomycin 500 mg (Oral/Rectal USE) PO SCH ×4 (05:00→21:40)
[2017-11-25 05:35] LABS: HEMOGLOBIN 12.4 g/dL (12.0-16.0); MEAN CELL VOLUME 88.5 fl (81.0-99.0); MEAN CORPUSCULAR HGB CONC 31.6 g/dL (33.0-37.0); RBC 4.42 Mil/uL (3.80-5.20); RED CELL DISTRIBUTION WIDTH 18.5 % (11.5-14.5); WHITE BLOOD COUNT 17.9 K/uL (4.8-10.8)
[2017-11-25 05:55] LABS: ALB/GLOB RATIO 1.3 (1.0-2.1); ALT/SGPT 39 U/L (9-52); AST/SGOT 30 U/L (14-36); BLOOD UREA NITROGEN 24 mg/dl (7-17); CALCIUM 8.3 mg/dL (8.4-10.2); GFR NON-AFRICAN AMERICAN > 60
[2017-11-25 05:59] LABS: T4 2.02 ug/dl (5.5-11.0)
--- NOTE | 2017-11-25 07:36 | CP.PCM.PN ---
<Linda Epps - Last Filed: 11/25/17 16:15> Subjective - Date & Time of Evaluation Date of Evaluation: 11/25/17 Time of Evaluation: 07:30 - Subjective Subjective: Patient seen and examined at bedside with Dr. Pimentel. She is resting in bed in no acute distress but is dyspneic with speech. She reports feeling much better today compared to yesterday. HNFC was used overnight and she continues to use it today. She states that she was unable to participate in physical therapy yesterday because she short of breath and she felt her heart racing all day. Today she states she will participate in physical therapy as she feels much better. She reports she received chest physiotherapy yesterday which she feels has been helping her release the mucus. She states she has cough and feels the need to expel mucus but it does not come up. She reports feeling bloated and states that her last BM was around 10 p.m. last night and was pasty, non- watery. She denies fevers, chills, chest pain, headaches, nausea, vomiting, diarrhea, and constipation. HFNC: 20L 35% FiO2. Patient can be transferred to TCU once she is asymptomatic during her Physical therapy. Objective - Vital Signs/Intake and Output Vital Signs (last 24 hours): Temp Pulse Resp BP Pulse Ox 97.5 F L 87 26 H 147/81 95 11/25/17 04:51 11/25/17 04:51 11/25/17 04:55 11/25/17 04:51 11/25/17 04:51 Intake and Output: 11/25/17 11/25/17 06:59 18:59 Output Total 300 Balance -300 - Medications Medications: Current Medications Acetaminophen (Tylenol 325mg Tab) 650 mg PO Q6 PRN PRN Reason: Pain, Mild (1-3)/headache Last Admin: 11/15/17 05:42 Dose: 650 mg Anastrozole (Arimidex 1 Mg Tab) 1 mg PO DAILY [facility] Last Admin: 11/24/17 08:38 Dose: 1 mg Aspirin (Ecotrin) 325 mg PO DAILY [facility] Last Admin: 11/24/17 08:39 Dose: 325 mg Atorvastatin Calcium (Lipitor) 40 mg PO DAILY [facility] Last Admin: 11/24/17 08:39 Dose: 40 mg Dicyclomine HCl (Bentyl) 10 mg PO QID PRN PRN Reason: Pain, moderate (4-7) Last Admin: 11/16/17 08:39 Dose: 10 mg Enoxaparin Sodium (Lovenox) 40 mg SC DAILY [facility] PRN Reason: Protocol Last Admin: 11/24/17 08:38 Dose: 40 mg Gabapentin (Neurontin) 600 mg PO Q8 [facility] Last Admin: 11/25/17 01:37 Dose: 600 mg Guaifenesin (Mucinex La) 600 mg PO Q12 [facility] Last Admin: 11/24/17 20:44 Dose: 600 mg Guaifenesin (Robitussin) 100 mg PO Q6 PRN PRN Reason: Cough Last Admin: 11/21/17 21:55 Dose: 100 mg Ipratropium [place] (Atrovent) 0.5 mg IH RQID [facility] Last Admin: 11/24/17 19:07 Dose: 0.5 mg Levalbuterol HCl (Xopenex) 0.63 mg INH RQ4 PRN PRN Reason: Shortness of Breath Lidocaine (Lidoderm) 1 ea TD DAILY PRN PRN Reason: Pain, moderate (4-7) Last Admin: 11/12/17 08:46 Dose: 1 ea Losartan Potassium (Cozaar) 50 mg PO DAILY [facility] Last Admin: 11/24/17 08:37 Dose: 50 mg Methimazole (Tapazole) 10 mg PO BID [facility] Last Admin: 11/24/17 16:20 Dose: 10 mg Methylprednisolone (Solu-Medrol) 30 mg IVP DAILY [facility] Last Admin: 11/24/17 08:36 Dose: 30 mg Metoprolol Succinate (Toprol Xl) 50 mg PO DAILY [facility] Last Admin: 11/24/17 09:38 Dose: Not Given Mirtazapine (Remeron) 15 mg PO HS [facility] Last Admin: 11/24/17 21:54 Dose: 15 mg Ondansetron HCl (Zofran Inj) 4 mg IVP Q4 PRN PRN Reason: Nausea/Vomiting Last Admin: 11/13/17 19:35 Dose: 4 mg Pantoprazole Sodium (Protonix Ec Tab) 40 mg PO DAILY [facility] Last Admin: 11/24/17 08:40 Dose: 40 mg Sucralfate (Carafate Tab) 1 gm PO BID [facility] Last Admin: 11/24/17 16:20 Dose: 1 gm Theophylline (Uniphyl) 400 mg PO DAILY [facility] Last Admin: 11/24/17 08:38 Dose: 400 mg Vancomycin HCl (Vancocin (Oral/Rectal Use)) 125 mg PO Q6 [facility] PRN Reason: Protocol Last Admin: 11/25/17 05:00 Dose: 125 mg Zolpidem Tartrate (Ambien) 5 mg PO HS PRN PRN Reason: Insomnia Last Admin: 11/24/17 22:59 Dose: 5 mg - Labs Labs: 11/25/17 04:20 11/25/17 04:20 PT 11.1 Seconds (9.8-13.1) 11/10/17 17:32 INR 1.0 (0.9-1.2) 11/10/17 17:32 APTT 20.7 Seconds (25.6-37.1) L 11/10/17 17:32 - Constitutional Appears: Well, Non-toxic, No Acute Distress, Chronically Ill - Head Exam Head Exam: NORMAL INSPECTION - Eye Exam Eye Exam: Normal appearance - ENT Exam ENT Exam: Mucous Membranes Moist, Normal Exam - Neck Exam Neck Exam: Normal Inspection (+ tracheostomy scar present at midline of neck. ) . absent: Lymphadenopathy, Tenderness, Thyromegaly - Respiratory Exam Respiratory Exam: Decreased Breath Sounds, Rales. absent: Chest Wall Tenderness , Rhonchi, Wheezes, Stridor - Cardiovascular Exam Cardiovascular Exam: REGULAR RHYTHM, RRR, +S1, +S2. absent: Clicks, Diastolic murmur, Gallop, JVD, Rubs, Murmur - GI/Abdominal Exam GI & Abdominal Exam: Distended, Soft, Normal Bowel Sounds (normoactive bowel sounds appreciated in all four quadrants.). absent: Firm, Guarding, Rigid, Tenderness, Pulsatile Mass, Rebound - Extremities Exam Extremities Exam: Joint Swelling (RUE lymphedema (chronic)), Normal Capillary Refill (+2 dorsalis pedis pulse; +2 tibial pulse. ), Normal Inspection (+ ecchymosis on bilateral legs (patient reports as chronic)). absent: Pedal Edema - Back Exam Back Exam: NORMAL INSPECTION. absent: rash noted, vertebral tenderness - Neurological Exam Neurological Exam: Alert, Awake, Oriented x3 - Psychiatric Exam Psychiatric exam: Normal Affect, Normal Mood - Skin Skin Exam: Dry, Intact, Normal Color, Warm Assessment and Plan (1) Acute exacerbation of chronic obstructive pulmonary disease (COPD) Status: Acute (2) Acute exacerbation of CHF (congestive heart failure) Status: Acute (3) C. difficile colitis Status: Acute (4) Hyperthyroidism Status: Chronic (5) HTN (hypertension) Status: Chronic (6) Hx of breast cancer Status: Acute (7) DVT prophylaxis Status: Acute - Assessment and Plan (Free Text) Assessment: 67 yo f with medical history including COPD, CHF, hypothyroidism, history of breast Cancer s/p mastectomy, chronic RUE lymphedema was brought into the ED because of dyspnea. Patient was then found to be in respiratory failure secondary to COPD and CHF exacerbation. Patient was admitted to ICU where she was on bipap and IV steroids and diuretics. She is no longer in the ICU. Patient is currently on HNFC 20L 35%. Tentative TCU transfer once patient is asymptomatic during physical therapy. Plan: (1) Acute exacerbation of chronic obstructive pulmonary disease (COPD) Assessment & Plan: Continue current management: - As per Dr. Benz's recommendations: Change Duoneb to Xopenex due to patient 's tachycardia. LAMA use only, reserve SUKHDEV for rescue treatment. Patient is now on Solumedrol 30mg PO daily. - Theophylline 400mg daily. Repeat Theophylline level: 9.3. Repeat Theophylline tomorrow in the am. - Oxygen: Patient on HFNC 20L 35%. - Continue Physical therapy when tolerated. - Continue Chest physiotherapy. - She can be transferred to TCU once patient is able to tolerate PT without symptoms. (2) Acute exacerbation of CHF (congestive heart failure) Assessment & Plan: Continue current management: Diuretics prn - Losartan and metoprolol succinate. (3) C. difficile colitis Assessment & Plan: Continue current management: Vanco po day 10. Continue Vancomycin for a total of 14 days of treatment. (4) Hyperthyroidism Assessment & Plan: Patient's TSH level on repeat: 0.09. - T4: 2.02; Free T4: 0.23; TSH: 0.26. - Continue current Endocrinology recommendation: Methimazole 10mg po BID. (5) HTN (hypertension) Assessment & Plan: Continue current management: Metoprolol and Losartan. (6) Hx of breast cancer Assessment & Plan: Continue current management: Arimidex. (7) DVT prophylaxis Assessment & Plan: Continue Lovenox. <Josefa Pimentel - Last Filed: 11/26/17 09:31> Objective - Vital Signs/Intake and Output Vital Signs (last 24 hours): Temp Pulse Resp BP Pulse Ox 97.9 F 80 14 168/77 H 95 11/26/17 08:00 11/26/17 08:21 11/26/17 08:05 11/26/17 08:21 11/26/17 08:00 Intake and Output: 11/26/17 11/26/17 06:59 18:59 Intake Total 1080 Output Total 750 Balance 330 - Medications Medications: Current Medications Acetaminophen (Tylenol 325mg Tab) 650 mg PO Q6 PRN PRN Reason: Pain, Mild (1-3)/headache Last Admin: 11/15/17 05:42 Dose: 650 mg Anastrozole (Arimidex 1 Mg Tab) 1 mg PO DAILY [facility] Last Admin: 11/26/17 08:28 Dose: 1 mg Aspirin (Ecotrin) 325 mg PO DAILY [facility] Last Admin: 11/26/17 08:20 Dose: 325 mg Atorvastatin Calcium (Lipitor) 40 mg PO DAILY [facility] Last Admin: 11/26/17 08:19 Dose: 40 mg Dicyclomine HCl (Bentyl) 10 mg PO QID PRN PRN Reason: Pain, moderate (4-7) Last Admin: 11/16/17 08:39 Dose: 10 mg Doxycycline Hyclate (Doryx) 100 mg PO Q12 [facility] PRN Reason: Protocol Enoxaparin Sodium (Lovenox) 40 mg SC DAILY [facility] PRN Reason: Protocol Last Admin: 11/26/17 08:20 Dose: 40 mg Gabapentin (Neurontin) 600 mg PO Q8 [facility] Last Admin: 11/26/17 08:19 Dose: 600 mg Guaifenesin (Mucinex La) 600 mg PO Q12 [facility] Last Admin: 11/26/17 08:23 Dose: 600 mg Guaifenesin (Robitussin) 100 mg PO Q6 PRN PRN Reason: Cough Last Admin: 11/21/17 21:55 Dose: 100 mg Ipratropium [place] (Atrovent) 0.5 mg IH RQID [facility] Last Admin: 11/26/17 07:57 Dose: 0.5 mg Levalbuterol HCl (Xopenex) 0.63 mg INH RQ4 PRN PRN Reason: Shortness of Breath Last Admin: 11/25/17 15:32 Dose: 0.63 mg Lidocaine (Lidoderm) 1 ea TD DAILY PRN PRN Reason: Pain, moderate (4-7) Last Admin: 11/26/17 08:22 Dose: 1 ea Losartan Potassium (Cozaar) 50 mg PO DAILY [facility] Last Admin: 11/26/17 08:21 Dose: 50 mg Methimazole (Tapazole) 10 mg PO BID [facility] Last Admin: 11/26/17 08:18 Dose: 10 mg Methylprednisolone (Solu-Medrol) 30 mg IVP DAILY [facility] Last Admin: 11/26/17 09:24 Dose: 30 mg Metoprolol Succinate (Toprol Xl) 50 mg PO DAILY [facility] Last Admin: 11/26/17 08:19 Dose: 50 mg Mirtazapine (Remeron) 15 mg PO HS [facility] Last Admin: 11/25/17 21:40 Dose: 15 mg Ondansetron HCl (Zofran Inj) 4 mg IVP Q4 PRN PRN Reason: Nausea/Vomiting Last Admin: 11/13/17 19:35 Dose: 4 mg Pantoprazole Sodium (Protonix Ec Tab) 40 mg PO DAILY [facility] Last Admin: 11/26/17 08:19 Dose: 40 mg Theophylline (Uniphyl) 400 mg PO DAILY [facility] Last Admin: 11/26/17 08:18 Dose: 400 mg Vancomycin HCl (Vancocin (Oral/Rectal Use)) 125 mg PO Q6 [facility] PRN Reason: Protocol Last Admin: 11/26/17 09:21 Dose: 125 mg Zolpidem Tartrate (Ambien) 5 mg PO HS PRN PRN Reason: Insomnia Last Admin: 11/25/17 22:08 Dose: 5 mg - Labs Labs: 11/25/17 04:20 11/25/17 04:20 PT 11.1 Seconds (9.8-13.1) 11/10/17 17:32 INR 1.0 (0.9-1.2) 11/10/17 17:32 APTT 20.7 Seconds (25.6-37.1) L 11/10/17 17:32 Attending/Attestation - Attestation I have personally seen and examined this patient.: Yes I have fully participated in the care of the patient.: Yes I have reviewed all pertinent clinical information, including history, physical exam and plan: Yes Notes (Text): 11/26/17 09:30 SEEN EXAMINED AND DISCUSSED WITH RESIDENT DR. Epps. AGREE WITH FINDINGS AND PLAN ABOVE.
[2017-11-25] MEDS: Ipratropium 0.02% Inhal Soln (0.5 mg/2.5 ml) UD IH SCH ×4 (08:10→19:37)
[2017-11-25] MEDS: Enoxaparin 40 mg Syringe SC SCH (08:25)
[2017-11-25] MEDS: THEOPHYLLINE 400 MG T24(UNIPHYL) PO SCH (08:25)
[2017-11-25] MEDS: Metoprolol Succinate 50 mg XL Tab PO SCH (08:26)
[2017-11-25] MEDS: guaiFENesin 600 mg ER Tab PO SCH ×2 (08:27→21:40)
[2017-11-25] MEDS: Aspirin 325 mg EC Tablets PO SCH (08:27)
[2017-11-25] MEDS: Pantoprazole 40 mg EC Tab PO SCH (08:39)
[2017-11-25] MEDS: MethylPREDNISolone 40 mg Vial IVP SCH (08:42)
--- NOTE | 2017-11-25 10:37 | CP.PCM.PN ---
Subjective - Date & Time of Evaluation Date of Evaluation: 11/25/17 Time of Evaluation: 10:37 - Subjective Subjective: Seen on rounds in telemetry. Seems a little more comfortable. States she had a little better night. Hasn't walked to the bathroom yet this morning. Maximiliano blood level being monitored. Slightly less tachycardia with increased methimazole. Metoprolol increased to 50MG daily as well. BP is good. Remains in HFNC with SpO2 around 94% consistently. Still has a congested but non-productive cough. Pharynx is pink and moist without exudate or signs of thrush. Neck is supple and trachea midline. No visible JVD. Breath sounds are very diminished with sonorous and sibilant rales heard in both lungs. No areas of distinct wheezes heard. Dependant rales in both lower lobes. No cyanosis or dependant edema. No calf tenderness. Heart sounds are very distant, rhythm regular. Will evaluate with physical therapy later today. Seems a bit more comfortable, hopefully not too much [place]. Most therapies are maxed out, except for use of higher steroid dosing (only if needed). No place for Heliox in this situation. Maybe consider starting her on antibiotic like azithromycin or doxycycline. She will be needing to begin antibiotic soon anyway for her chronic recurring cellulitis in the RUE. Objective - Vital Signs/Intake and Output Vital Signs (last 24 hours): Temp Pulse Resp BP Pulse Ox 97.9 F 97 H 20 132/76 95 11/25/17 07:57 11/25/17 08:26 11/25/17 08:19 11/25/17 08:26 11/25/17 07:57 Intake and Output: 11/24/17 11/25/17 23:59 11:59 Output Total 300 Balance -300 - Medications Medications: Current Medications Acetaminophen (Tylenol 325mg Tab) 650 mg PO Q6 PRN PRN Reason: Pain, Mild (1-3)/headache Last Admin: 11/15/17 05:42 Dose: 650 mg Anastrozole (Arimidex 1 Mg Tab) 1 mg PO DAILY [facility] Last Admin: 11/25/17 08:29 Dose: 1 mg Aspirin (Ecotrin) 325 mg PO DAILY [facility] Last Admin: 11/25/17 08:27 Dose: 325 mg Atorvastatin Calcium (Lipitor) 40 mg PO DAILY [facility] Last Admin: 11/25/17 08:28 Dose: 40 mg Dicyclomine HCl (Bentyl) 10 mg PO QID PRN PRN Reason: Pain, moderate (4-7) Last Admin: 11/16/17 08:39 Dose: 10 mg Enoxaparin Sodium (Lovenox) 40 mg SC DAILY [facility] PRN Reason: Protocol Last Admin: 11/25/17 08:25 Dose: 40 mg Gabapentin (Neurontin) 600 mg PO Q8 [facility] Last Admin: 11/25/17 08:27 Dose: 600 mg Guaifenesin (Mucinex La) 600 mg PO Q12 [facility] Last Admin: 11/25/17 08:27 Dose: 600 mg Guaifenesin (Robitussin) 100 mg PO Q6 PRN PRN Reason: Cough Last Admin: 11/21/17 21:55 Dose: 100 mg Ipratropium [place] (Atrovent) 0.5 mg IH RQID [facility] Last Admin: 11/25/17 08:10 Dose: 0.5 mg Levalbuterol HCl (Xopenex) 0.63 mg INH RQ4 PRN PRN Reason: Shortness of Breath Lidocaine (Lidoderm) 1 ea TD DAILY PRN PRN Reason: Pain, moderate (4-7) Last Admin: 11/12/17 08:46 Dose: 1 ea Losartan Potassium (Cozaar) 50 mg PO DAILY [facility] Last Admin: 11/25/17 08:26 Dose: 50 mg Methimazole (Tapazole) 10 mg PO BID [facility] Last Admin: 11/25/17 08:27 Dose: 10 mg Methylprednisolone (Solu-Medrol) 30 mg IVP DAILY [facility] Last Admin: 11/25/17 08:42 Dose: 30 mg Metoprolol Succinate (Toprol Xl) 50 mg PO DAILY [facility] Last Admin: 11/25/17 08:26 Dose: 50 mg Mirtazapine (Remeron) 15 mg PO HS [facility] Last Admin: 11/24/17 21:54 Dose: 15 mg Ondansetron HCl (Zofran Inj) 4 mg IVP Q4 PRN PRN Reason: Nausea/Vomiting Last Admin: 11/13/17 19:35 Dose: 4 mg Pantoprazole Sodium (Protonix Ec Tab) 40 mg PO DAILY [facility] Last Admin: 11/25/17 08:39 Dose: 40 mg Sucralfate (Carafate Tab) 1 gm PO BID [facility] Last Admin: 11/25/17 08:25 Dose: 1 gm Theophylline (Uniphyl) 400 mg PO DAILY [facility] Last Admin: 11/25/17 08:25 Dose: 400 mg Vancomycin HCl (Vancocin (Oral/Rectal Use)) 125 mg PO Q6 [facility] PRN Reason: Protocol Last Admin: 11/25/17 08:59 Dose: 125 mg Zolpidem Tartrate (Ambien) 5 mg PO HS PRN PRN Reason: Insomnia Last Admin: 11/24/17 22:59 Dose: 5 mg - Labs Labs: 11/25/17 04:20 11/25/17 04:20 PT 11.1 Seconds (9.8-13.1) 11/10/17 17:32 INR 1.0 (0.9-1.2) 11/10/17 17:32 APTT 20.7 Seconds (25.6-37.1) L 11/10/17 17:32
[2017-11-25] MEDS: Levalbuterol 0.63 MG/3 ML Inhal Soln UD INH PRN (15:32)
[2017-11-26] MEDS: Vancomycin 500 mg (Oral/Rectal USE) PO SCH ×3 (04:45→16:27)
[2017-11-26] MEDS: Ipratropium 0.02% Inhal Soln (0.5 mg/2.5 ml) UD IH SCH ×4 (07:57→19:03)
[2017-11-26] MEDS: Levalbuterol 0.63 MG/3 ML Inhal Soln UD INH PRN (07:57)
[2017-11-26] MEDS: THEOPHYLLINE 400 MG T24(UNIPHYL) PO SCH (08:18)
[2017-11-26] MEDS: Metoprolol Succinate 50 mg XL Tab PO SCH (08:19)
[2017-11-26] MEDS: Pantoprazole 40 mg EC Tab PO SCH (08:19)
[2017-11-26] MEDS: Enoxaparin 40 mg Syringe SC SCH (08:20)
[2017-11-26] MEDS: Aspirin 325 mg EC Tablets PO SCH (08:20)
[2017-11-26] MEDS: Lidocaine 5% Patch TD PRN (08:22)
[2017-11-26] MEDS: guaiFENesin 600 mg ER Tab PO SCH ×2 (08:23→20:59)
[2017-11-26] MEDS: MethylPREDNISolone 40 mg Vial IVP SCH (09:24)
--- NOTE | 2017-11-26 10:23 | PN ---
DATE: 11/26/2017 LOCATION: Room 408, bed 2. SUBJECTIVE: This is a 67-year-old female presenting here with acute exacerbation of COPD with supervening congestive heart failure and is now also being followed closely for metabolic management because of persistent subclinical hyperthyroidism as noted thereof. Her latest chemistries today showed a BUN of 24, sodium 138, potassium 3.9, chloride 99, CO2 31, glucose 141 and creatinine 0.5. Her latest thyroid study showed a T4 of 2.08 with a free T4 of 0.23 and a TSH of 0.26. Her albumin level is also extremely low ranging from 2.9 to 3.0. ASSESSMENT: This is a 67-year-old female with subclinical hyperthyroidism related to underlying Graves disease and autoimmune thyroiditis with persistent low normal thyroxine values related to the underlying hypoalbuminemia and subsequent low thyroxine binding globulin levels and falsely low thyroxine values as noted thereof. She has improved clinically and hemodynamically with a intercurrent cardiac management as given. PLAN OF MANAGEMENT: We will continue the modified medical therapy with Thioureas given as Tapazole at 10 mg p.o. b.i.d. after meals as ordered. We will continue the same dosing regimen for now to allow for dose equilibration at this time. We will obtain serial chemistries and supplement accordingly as needed. We will also obtain serial thyroid studies and titrate her dose regimen accordingly. We are awaiting the reports of the thyroid antibodies, i.e., thyroid stimulating immunoglobulin and thyroid peroxidase antibody, which will confirm and/or indicate the presence of underlying thyroid autoimmunity. We will follow with this. Polly Vu MD
--- NOTE | 2017-11-26 11:56 | CP.PCM.PN ---
Subjective - Date & Time of Evaluation Date of Evaluation: 11/26/17 Time of Evaluation: 11:51 - Subjective Subjective: continues to be dyspneic, slow improvement otherwise no complaints hd stable nad Objective - Vital Signs/Intake and Output Vital Signs (last 24 hours): Temp Pulse Resp BP Pulse Ox 97.9 F 80 14 168/77 H 95 11/26/17 08:00 11/26/17 08:21 11/26/17 08:05 11/26/17 08:21 11/26/17 08:00 Intake and Output: 11/26/17 11/26/17 06:59 18:59 Intake Total 1080 Output Total 750 Balance 330 - Medications Medications: Current Medications Acetaminophen (Tylenol 325mg Tab) 650 mg PO Q6 PRN PRN Reason: Pain, Mild (1-3)/headache Last Admin: 11/26/17 11:28 Dose: 650 mg Anastrozole (Arimidex 1 Mg Tab) 1 mg PO DAILY [facility] Last Admin: 11/26/17 08:28 Dose: 1 mg Aspirin (Ecotrin) 325 mg PO DAILY [facility] Last Admin: 11/26/17 08:20 Dose: 325 mg Atorvastatin Calcium (Lipitor) 40 mg PO DAILY [facility] Last Admin: 11/26/17 08:19 Dose: 40 mg Dicyclomine HCl (Bentyl) 10 mg PO QID PRN PRN Reason: Pain, moderate (4-7) Last Admin: 11/16/17 08:39 Dose: 10 mg Doxycycline Hyclate (Doryx) 100 mg PO Q12 [facility] PRN Reason: Protocol Last Admin: 11/26/17 11:22 Dose: 100 mg Enoxaparin Sodium (Lovenox) 40 mg SC DAILY [facility] PRN Reason: Protocol Last Admin: 11/26/17 08:20 Dose: 40 mg Gabapentin (Neurontin) 600 mg PO Q8 [facility] Last Admin: 11/26/17 08:19 Dose: 600 mg Guaifenesin (Mucinex La) 600 mg PO Q12 [facility] Last Admin: 11/26/17 08:23 Dose: 600 mg Guaifenesin (Robitussin) 100 mg PO Q6 PRN PRN Reason: Cough Last Admin: 11/21/17 21:55 Dose: 100 mg Ipratropium [place] (Atrovent) 0.5 mg IH RQID [facility] Last Admin: 11/26/17 07:57 Dose: 0.5 mg Levalbuterol HCl (Xopenex) 0.63 mg INH RQ4 PRN PRN Reason: Shortness of Breath Last Admin: 11/25/17 15:32 Dose: 0.63 mg Lidocaine (Lidoderm) 1 ea TD DAILY PRN PRN Reason: Pain, moderate (4-7) Last Admin: 11/26/17 08:22 Dose: 1 ea Losartan Potassium (Cozaar) 50 mg PO DAILY [facility] Last Admin: 11/26/17 08:21 Dose: 50 mg Methimazole (Tapazole) 10 mg PO BID [facility] Last Admin: 11/26/17 08:18 Dose: 10 mg Methylprednisolone (Solu-Medrol) 30 mg IVP DAILY [facility] Last Admin: 11/26/17 09:24 Dose: 30 mg Metoprolol Succinate (Toprol Xl) 50 mg PO DAILY [facility] Last Admin: 11/26/17 08:19 Dose: 50 mg Mirtazapine (Remeron) 15 mg PO HS [facility] Last Admin: 11/25/17 21:40 Dose: 15 mg Ondansetron HCl (Zofran Inj) 4 mg IVP Q4 PRN PRN Reason: Nausea/Vomiting Last Admin: 11/13/17 19:35 Dose: 4 mg Pantoprazole Sodium (Protonix Ec Tab) 40 mg PO DAILY [facility] Last Admin: 11/26/17 08:19 Dose: 40 mg Theophylline (Uniphyl) 400 mg PO DAILY [facility] Last Admin: 11/26/17 08:18 Dose: 400 mg Vancomycin HCl (Vancocin (Oral/Rectal Use)) 125 mg PO Q6 [facility] PRN Reason: Protocol Last Admin: 11/26/17 09:21 Dose: 125 mg Zolpidem Tartrate (Ambien) 5 mg PO HS PRN PRN Reason: Insomnia Last Admin: 11/25/17 22:08 Dose: 5 mg - Labs Labs: 11/25/17 04:20 11/25/17 04:20 PT 11.1 Seconds (9.8-13.1) 11/10/17 17:32 INR 1.0 (0.9-1.2) 11/10/17 17:32 APTT 20.7 Seconds (25.6-37.1) L 11/10/17 17:32 - Constitutional Appears: Non-toxic, No Acute Distress - Head Exam Head Exam: ATRAUMATIC, NORMOCEPHALIC - Eye Exam Eye Exam: EOMI, Normal appearance, PERRL - Respiratory Exam Respiratory Exam: Wheezes, NORMAL BREATHING PATTERN - Cardiovascular Exam Cardiovascular Exam: RRR, +S1, +S2 - GI/Abdominal Exam GI & Abdominal Exam: Soft, Normal Bowel Sounds. absent: Tenderness, Organomegaly - Extremities Exam Extremities Exam: Normal Capillary Refill. absent: Calf Tenderness - Back Exam Back Exam: absent: CVA tenderness (L), CVA tenderness (R) - Psychiatric Exam Psychiatric exam: Normal Affect, Normal Mood - Skin Skin Exam: Dry, Warm Assessment and Plan - Assessment and Plan (Free Text) Plan: 67 yo f with medical history including COPD, CHF, hypothyroidism, history of breast Cancer s/p mastectomy, chronic RUE lymphedema was brought into the ED because of dyspnea. Patient was then found to be in respiratory failure secondary to COPD and CHF exacerbation. Patient was admitted to ICU where she was on bipap and IV steroids and diuretics. She is no longer in the ICU. Patient is currently on HNFC 20L 35%. Tentative TCU transfer once patient is asymptomatic during physical therapy. No acute changes, awaiting improvement with high flow. Physical therapy on board. Procalcitonin sent for possible bacterial process. (1) Acute exacerbation of chronic obstructive pulmonary disease (COPD) Assessment & Plan: Continue current management: - As per Dr. Benz's recommendations: Change Duoneb to Xopenex due to patient 's tachycardia. LAMA use only, reserve SUKHDEV for rescue treatment. Patient is now on Solumedrol 30mg PO daily. - Theophylline 400mg daily. Repeat Theophylline level: 9.3. Repeat Theophylline tomorrow in the am. - Oxygen: Patient on HFNC 20L 35%. - Continue Physical therapy when tolerated. - Continue Chest physiotherapy. - She can be transferred to TCU once patient is able to tolerate PT without symptoms. (2) Acute exacerbation of CHF (congestive heart failure) Assessment & Plan: Continue current management: Diuretics prn - Losartan and metoprolol succinate. (3) C. difficile colitis Assessment & Plan: Continue current management: Continue Vancomycin for a total of 14 days of treatment. (4) Hyperthyroidism Assessment & Plan: Patient's TSH level on repeat: 0.09. - T4: 2.02; Free T4: 0.23; TSH: 0.26. - Continue current Endocrinology recommendation: Methimazole 10mg po BID. (5) HTN (hypertension) Assessment & Plan: Continue current management: Metoprolol and Losartan. (6) Hx of breast cancer Assessment & Plan: Continue current management: Arimidex. (7) DVT prophylaxis Assessment & Plan: Continue Lovenox.
[2017-11-27 06:57] LABS: BASO % 0.1 % (0.0-2.0); EOS % 0.1 % (0.0-4.0); HEMOGLOBIN 11.2 g/dL (12.0-16.0); LYMPH # 0.9 K/uL (1.0-4.3); LYMPH % 6.8 % (20.0-40.0); MEAN CELL VOLUME 88.7 fl (81.0-99.0); MEAN CORPUSCULAR HEMOGLOBIN 27.7 pg (27.0-31.0); MEAN CORPUSCULAR HGB CONC 31.2 g/dL (33.0-37.0); MEAN PLATELET VOLUME 7.5 fl (7.2-11.7); MONO # 1.1 K/uL (0.0-0.8); MONO % 8.1 % (0.0-10.0); NEUT # 11.1 K/uL (1.8-7.0); NEUT % 84.9 % (50.0-75.0); NRBC % 0.1 % (0.0-0.0); PLATELET COUNT 238 K/uL (130-400); RBC 4.05 Mil/uL (3.80-5.20); RED CELL DISTRIBUTION WIDTH 19.3 % (11.5-14.5); WHITE BLOOD COUNT 13.1 K/uL (4.8-10.8)
[2017-11-27 06:59] LABS: BLOOD UREA NITROGEN 21 mg/dl (7-17); CALCIUM 8.2 mg/dL (8.4-10.2); GFR NON-AFRICAN AMERICAN > 60
[2017-11-27] MEDS: Ipratropium 0.02% Inhal Soln (0.5 mg/2.5 ml) UD IH SCH ×4 (08:03→20:04)
[2017-11-27] MEDS: Levalbuterol 0.63 MG/3 ML Inhal Soln UD INH PRN ×2 (08:03→18:19)
--- NOTE | 2017-11-27 09:39 | CP.PCM.PN ---
Subjective - Date & Time of Evaluation Date of Evaluation: 11/27/17 Time of Evaluation: 09:38 - Subjective Subjective: pt improving very slowly, however appears more comfortable today, no distress tolerating HFNC well, PHYSICAL THERAPY tomorrow procalcitonin pending hd stable nad Objective - Vital Signs/Intake and Output Vital Signs (last 24 hours): Temp Pulse Resp BP Pulse Ox 97.6 F 90 14 157/87 H 95 11/27/17 08:00 11/27/17 08:00 11/27/17 09:07 11/27/17 08:00 11/27/17 08:00 GEN: WDWN, ALERT, COOPERATIVE HEENT: NCAT, PERRL, EOMI HEART: +S1+S2, RRR NO MRG LUNG: wheezes, diminished bs throughout ABD: SOFT BSX4 NT ND NO HSM NO MASS EXT: WARM, WELL PERFUSED NEURO: AA0X3, STRENGTH AND SENSATION EQUAL AND BILATERAL SKIN: WARM DRY PSYCH: NORMAL MOOD NORMAL AFFECT - Medications Medications: Current Medications Acetaminophen (Tylenol 325mg Tab) 650 mg PO Q6 PRN PRN Reason: Pain, Mild (1-3)/headache Last Admin: 11/27/17 04:49 Dose: 650 mg Anastrozole (Arimidex 1 Mg Tab) 1 mg PO DAILY [facility] Last Admin: 11/26/17 08:28 Dose: 1 mg Aspirin (Ecotrin) 325 mg PO DAILY [facility] Last Admin: 11/26/17 08:20 Dose: 325 mg Atorvastatin Calcium (Lipitor) 40 mg PO DAILY [facility] Last Admin: 11/26/17 08:19 Dose: 40 mg Dicyclomine HCl (Bentyl) 10 mg PO QID PRN PRN Reason: Pain, moderate (4-7) Last Admin: 11/16/17 08:39 Dose: 10 mg Doxycycline Hyclate (Doryx) 100 mg PO Q12 [facility] PRN Reason: Protocol Last Admin: 11/26/17 20:59 Dose: 100 mg Enoxaparin Sodium (Lovenox) 40 mg SC DAILY [facility] PRN Reason: Protocol Last Admin: 11/26/17 08:20 Dose: 40 mg Gabapentin (Neurontin) 600 mg PO Q8 [facility] Last Admin: 11/27/17 01:22 Dose: 600 mg Guaifenesin (Mucinex La) 600 mg PO Q12 [facility] Last Admin: 11/26/17 20:59 Dose: 600 mg Guaifenesin (Robitussin) 100 mg PO Q6 PRN PRN Reason: Cough Last Admin: 11/21/17 21:55 Dose: 100 mg Ipratropium [place] (Atrovent) 0.5 mg IH RQID [facility] Last Admin: 11/27/17 08:03 Dose: 0.5 mg Levalbuterol HCl (Xopenex) 0.63 mg INH RQ4 PRN PRN Reason: Shortness of Breath Last Admin: 11/27/17 08:03 Dose: 0.63 mg Lidocaine (Lidoderm) 1 ea TD DAILY PRN PRN Reason: Pain, moderate (4-7) Last Admin: 11/26/17 08:22 Dose: 1 ea Losartan Potassium (Cozaar) 50 mg PO DAILY [facility] Last Admin: 11/26/17 08:21 Dose: 50 mg Methimazole (Tapazole) 10 mg PO BID [facility] Last Admin: 11/26/17 16:28 Dose: 10 mg Methylprednisolone (Solu-Medrol) 30 mg IVP DAILY [facility] Last Admin: 11/26/17 09:24 Dose: 30 mg Metoprolol Succinate (Toprol Xl) 50 mg PO DAILY [facility] Last Admin: 11/26/17 08:19 Dose: 50 mg Mirtazapine (Remeron) 15 mg PO HS [facility] Last Admin: 11/26/17 21:00 Dose: 15 mg Ondansetron HCl (Zofran Inj) 4 mg IVP Q4 PRN PRN Reason: Nausea/Vomiting Last Admin: 11/13/17 19:35 Dose: 4 mg Pantoprazole Sodium (Protonix Ec Tab) 40 mg PO DAILY [facility] Last Admin: 11/26/17 08:19 Dose: 40 mg Theophylline (Uniphyl) 400 mg PO DAILY [facility] Last Admin: 11/26/17 08:18 Dose: 400 mg Zolpidem Tartrate (Ambien) 5 mg PO HS PRN PRN Reason: Insomnia Last Admin: 11/26/17 22:43 Dose: 5 mg - Labs Labs: 11/27/17 05:52 11/27/17 05:52 PT 11.1 Seconds (9.8-13.1) 11/10/17 17:32 INR 1.0 (0.9-1.2) 11/10/17 17:32 APTT 20.7 Seconds (25.6-37.1) L 11/10/17 17:32 Assessment and Plan - Assessment and Plan (Free Text) Plan: 67 yo f with medical history including COPD, CHF, hypothyroidism, history of breast Cancer s/p mastectomy, chronic RUE lymphedema was brought into the ED because of dyspnea. Patient was then found to be in respiratory failure secondary to COPD and CHF exacerbation. Patient was admitted to ICU where she was on bipap and IV steroids and diuretics. She is no longer in the ICU. Patient is currently on HNFC 20L 35%. Tentative TCU transfer once patient is asymptomatic during physical therapy. No acute changes, awaiting improvement with high flow. Physical therapy on board. Procalcitonin sent for possible bacterial process, awaiting results. (1) Acute exacerbation of chronic obstructive pulmonary disease (COPD) Assessment & Plan: Continue current management: - As per Dr. Benz's recommendations: Change Duoneb to Xopenex due to patient 's tachycardia. LAMA use only, reserve SUKHDEV for rescue treatment. Patient is now on Solumedrol 30mg PO daily. - Theophylline 400mg daily. Repeat Theophylline level: 9.3. Repeat Theophylline tomorrow in the am. - Oxygen: Patient on HFNC 20L 35%. - Continue Physical therapy when tolerated. - Continue Chest physiotherapy. - She can be transferred to TCU once patient is able to tolerate PT without symptoms. (2) Acute exacerbation of CHF (congestive heart failure) Assessment & Plan: Continue current management: Diuretics prn - Losartan and metoprolol succinate. (3) C. difficile colitis Assessment & Plan: Continue current management: Continue Vancomycin for a total of 14 days of treatment. (4) Hyperthyroidism Assessment & Plan: Patient's TSH level on repeat: 0.09. - T4: 2.02; Free T4: 0.23; TSH: 0.26. - Continue current Endocrinology recommendation: Methimazole 10mg po BID. (5) HTN (hypertension) Assessment & Plan: Continue current management: Metoprolol and Losartan. (6) Hx of breast cancer Assessment & Plan: Continue current management: Arimidex. (7) DVT prophylaxis Assessment & Plan: Continue Lovenox.
[2017-11-27] MEDS: Enoxaparin 40 mg Syringe SC SCH (10:02)
[2017-11-27] MEDS: guaiFENesin 600 mg ER Tab PO SCH ×2 (10:02→21:37)
[2017-11-27] MEDS: THEOPHYLLINE 400 MG T24(UNIPHYL) PO SCH (10:04)
[2017-11-27] MEDS: Metoprolol Succinate 50 mg XL Tab PO SCH (10:04)
[2017-11-27] MEDS: Pantoprazole 40 mg EC Tab PO SCH (10:04)
[2017-11-27] MEDS: MethylPREDNISolone 40 mg Vial IVP SCH (10:09)
[2017-11-27] MEDS: Aspirin 325 mg EC Tablets PO SCH (10:09)
[2017-11-27 10:40] LABS: ANISOCYTOSIS SLIGHT; BANDS 1 % (0-2); LYMPHOCYTE 9 % (20-50); MONOCYTE 8 % (0-10); NEUTROPHIL 82 % (42-75); PLATELET ESTIMATE NORMAL (NORMAL); TOTAL CELLS COUNTED 100
[2017-11-27 10:41] LABS: GIANT PLATELETS PRESENT; HYPOCHROMIC SLIGHT; LARGE PLATELETS PRESENT
--- NOTE | 2017-11-27 12:03 | CP.PCM.PN ---
Subjective - Date & Time of Evaluation Date of Evaluation: 11/27/17 Time of Evaluation: 12:02 - Subjective Subjective: Making very slow progress. Had complaint of significant ankle pain bilaterally last night. Congested cough, now swallowing sputum that is being coughed up into her throat. Vital signs remain okay. Still gets dyspneic with prolonged conversation. No cyanosis, no ankle swelling od tenderness on palpation or movement. No calf tenderness, no Fito's sign. Pharynx is pink and mopist w/o exudate. No dullness on percussion of the chest, actually hyper-resonant bilaterally. No subcutaneous emphysema. Breath sounds are very much diminished bilaterally. Expiratory phase remains prolonged. Expiratory rhonchi bikaterally. No distinct wheezes are herd. Dry basal rales bilaterally. Heart sounds are very distant, rhythm is regular ~ 90 BPM. Abdomen is soft and non-tender. Will discontinue metoprolol even though she has been on this medication for years. Will start diltiazem 30MG QID starting in AM tomorrow. Thephylline level is good, lytes are good, except for some increase in CO2. Ankle pain may be secondary to steroid withdrawal. Objective - Vital Signs/Intake and Output Vital Signs (last 24 hours): Temp Pulse Resp BP Pulse Ox 97.6 F 90 16 157/87 H 95 11/27/17 08:00 11/27/17 10:12 11/27/17 11:43 11/27/17 10:12 11/27/17 08:00 - Medications Medications: Current Medications Acetaminophen (Tylenol 325mg Tab) 650 mg PO Q6 PRN PRN Reason: Pain, Mild (1-3)/headache Last Admin: 11/27/17 04:49 Dose: 650 mg Anastrozole (Arimidex 1 Mg Tab) 1 mg PO DAILY [facility] Last Admin: 11/27/17 10:07 Dose: 1 mg Aspirin (Ecotrin) 325 mg PO DAILY [facility] Last Admin: 11/27/17 10:09 Dose: 325 mg Atorvastatin Calcium (Lipitor) 40 mg PO DAILY [facility] Last Admin: 11/27/17 10:05 Dose: 40 mg Dicyclomine HCl (Bentyl) 10 mg PO QID PRN PRN Reason: Pain, moderate (4-7) Last Admin: 11/16/17 08:39 Dose: 10 mg Doxycycline Hyclate (Doryx) 100 mg PO Q12 [facility] PRN Reason: Protocol Last Admin: 11/27/17 10:13 Dose: 100 mg Enoxaparin Sodium (Lovenox) 40 mg SC DAILY [facility] PRN Reason: Protocol Last Admin: 11/27/17 10:02 Dose: 40 mg Gabapentin (Neurontin) 600 mg PO Q8 [facility] Last Admin: 11/27/17 10:02 Dose: 600 mg Guaifenesin (Mucinex La) 600 mg PO Q12 [facility] Last Admin: 11/27/17 10:02 Dose: 600 mg Guaifenesin (Robitussin) 100 mg PO Q6 PRN PRN Reason: Cough Last Admin: 11/21/17 21:55 Dose: 100 mg Ipratropium [place] (Atrovent) 0.5 mg IH RQID [facility] Last Admin: 11/27/17 11:10 Dose: 0.5 mg Levalbuterol HCl (Xopenex) 0.63 mg INH RQ4 PRN PRN Reason: Shortness of Breath Last Admin: 11/27/17 08:03 Dose: 0.63 mg Lidocaine (Lidoderm) 1 ea TD DAILY PRN PRN Reason: Pain, moderate (4-7) Last Admin: 11/26/17 08:22 Dose: 1 ea Losartan Potassium (Cozaar) 50 mg PO DAILY [facility] Last Admin: 11/27/17 10:12 Dose: 50 mg Methimazole (Tapazole) 10 mg PO BID [facility] Last Admin: 11/27/17 10:03 Dose: 10 mg Methylprednisolone (Solu-Medrol) 30 mg IVP DAILY [facility] Last Admin: 11/27/17 10:09 Dose: 30 mg Metoprolol Succinate (Toprol Xl) 50 mg PO DAILY [facility] Last Admin: 11/27/17 10:04 Dose: 50 mg Mirtazapine (Remeron) 15 mg PO HS [facility] Last Admin: 11/26/17 21:00 Dose: 15 mg Ondansetron HCl (Zofran Inj) 4 mg IVP Q4 PRN PRN Reason: Nausea/Vomiting Last Admin: 11/13/17 19:35 Dose: 4 mg Pantoprazole Sodium (Protonix Ec Tab) 40 mg PO DAILY [facility] Last Admin: 11/27/17 10:04 Dose: 40 mg Theophylline (Uniphyl) 400 mg PO DAILY [facility] Last Admin: 11/27/17 10:04 Dose: 400 mg Zolpidem Tartrate (Ambien) 5 mg PO HS PRN PRN Reason: Insomnia Last Admin: 11/26/17 22:43 Dose: 5 mg - Labs Labs: 11/27/17 05:52 11/27/17 05:52 PT 11.1 Seconds (9.8-13.1) 11/10/17 17:32 INR 1.0 (0.9-1.2) 11/10/17 17:32 APTT 20.7 Seconds (25.6-37.1) L 11/10/17 17:32
[2017-11-27] MEDS: Lidocaine 5% Patch TD PRN (16:50)
[2017-11-28] MEDS: Levalbuterol 0.63 MG/3 ML Inhal Soln UD INH PRN ×2 (08:00→19:10)
[2017-11-28] MEDS: Ipratropium 0.02% Inhal Soln (0.5 mg/2.5 ml) UD IH SCH ×4 (08:01→19:10)
--- NOTE | 2017-11-28 08:32 | PN ---
DATE: 11/27/2017 ENDO FOLLOWUP NOTE LOCATION: In room 408. SUBJECTIVE: This is a 67-year-old female with recent exacerbation of congestive heart failure with underlying COPD and currently on IV steroid therapy as given. Her glycemic levels are fluctuating, but much improved at this time and the glucose levels have ranged from 91 to 141 and 211 mg/dL. LABORATORY DATA: Her latest chemistry showed a BUN of 21, sodium 137, potassium 3.9, chloride 98, CO2 of 35, glucose 91, and creatinine 0.6. Her latest thyroid studies showed a T4 of 2.02 with a free T4 of 0.23 and a TSH of 0.26. ASSESSMENT AND PLAN: So at this time, we will await the thyroid antibodies, which will confirm and/or indicate the presence of underlying thyroid autoimmunity. We will continue the modified medical therapy using given as 10 mg b.i.d. after meals as ordered. We would expect low normal thyroxine values as noted because of the marked hypoalbuminemia contributing to the low thyroxine binding globulin levels and eventual low normal T4 values as noted. We will follow with you. Polly Vu MD
--- NOTE | 2017-11-28 08:53 | PN ---
DATE: 11/25/2017 ENDO FOLLOWUP NOTE LOCATION: In room 408. SUBJECTIVE: This is a 67-year-old female admitted with acute exacerbation of COPD with supervening congestive heart failure and is also now being followed closely for metabolic management. She also has early subclinical hyperthyroidism as noted thereof. The repeat thyroid studies today showed a T4 or thyroxine of 2.06, which is low and this is indicative of the underlying moderate hypoalbuminemia, which will lower the thyroxine binding globulin and cause lowering of the total T4 levels as noted. Her free T4 is 0.23. The TSH remains suppressed at 0.26 today and it was 0.09 yesterday as noted. Her chemistry showed a BUN of 24, sodium 138, potassium 3.9, chloride 99, CO2 of 31, glucose 141 and creatinine 0.5. ASSESSMENT: This is a 67-year-old female with subclinical hyperthyroidism and persistent thyroid stimulating hormone suppression as noted thereof. However, she also has low normal thyroxine values related to the underlying hypoalbuminemia, which will lower the TBGs or thyroxine binding globulin levels as noted. She also presented here with congestive heart failure with exacerbation of chronic obstructive pulmonary disease and is being managed accordingly and has improved clinically and hemodynamically as noted thereof. PLAN OF MANAGEMENT: We will continue the modified and higher dosing of the Tapazole given as 10 mg b.i.d. after meals as ordered. We will observe her clinical and biochemical response thereof. We will also obtain serial thyroid studies and titrate her dose regimen accordingly. We will also obtain serial chemistries and supplement accordingly as needed. We will follow. Polly Vu MD
[2017-11-28] MEDS: Aspirin 325 mg EC Tablets PO SCH (09:40)
[2017-11-28] MEDS: Enoxaparin 40 mg Syringe SC SCH (09:40)
[2017-11-28] MEDS: guaiFENesin 600 mg ER Tab PO SCH ×2 (09:41→21:18)
[2017-11-28] MEDS: Pantoprazole 40 mg EC Tab PO SCH (09:42)
[2017-11-28] MEDS: THEOPHYLLINE 400 MG T24(UNIPHYL) PO SCH (09:43)
[2017-11-28] MEDS: MethylPREDNISolone 40 mg Vial IVP SCH ×3 (09:45→21:20)
--- NOTE | 2017-11-28 09:50 | CP.PCM.PN ---
Subjective - Date & Time of Evaluation Date of Evaluation: 11/28/17 Time of Evaluation: 09:50 - Subjective Subjective: Mildly tachycardic and short of breath. Had received aerosol therapy earlier with tiotropium and levalbuterol both. Metoprolol is not being given today, and diltiazem is being started. No complaint of ankle pain overnight. Heart rate 108 BPM now, RR 20 BPM, SpO2 94%. Scattered sonorous rhonchi with E wheezes and prolonged E phase presently. If current condition persists, will need to use higher steroid dosing to better control her bronchospasm. Hopefully the diltiazem will suffice for heart rate control. No ill effects thus far from the doxycycline. Objective - Vital Signs/Intake and Output Vital Signs (last 24 hours): Temp Pulse Resp BP Pulse Ox 98.1 F 82 18 131/78 95 11/28/17 07:51 11/28/17 09:39 11/28/17 08:02 11/28/17 09:39 11/28/17 07:51 - Medications Medications: Current Medications Acetaminophen (Tylenol 325mg Tab) 650 mg PO Q6 PRN PRN Reason: Pain, Mild (1-3)/headache Last Admin: 11/27/17 04:49 Dose: 650 mg Anastrozole (Arimidex 1 Mg Tab) 1 mg PO DAILY [facility] Last Admin: 11/28/17 09:36 Dose: 1 mg Aspirin (Ecotrin) 325 mg PO DAILY [facility] Last Admin: 11/28/17 09:40 Dose: 325 mg Atorvastatin Calcium (Lipitor) 40 mg PO DAILY [facility] Last Admin: 11/28/17 09:40 Dose: 40 mg Dicyclomine HCl (Bentyl) 10 mg PO QID PRN PRN Reason: Pain, moderate (4-7) Last Admin: 11/16/17 08:39 Dose: 10 mg Diltiazem HCl (Cardizem) 30 mg PO QID [facility] Last Admin: 11/28/17 09:37 Dose: 30 mg Doxycycline Hyclate (Doryx) 100 mg PO Q12 [facility] PRN Reason: Protocol Last Admin: 11/28/17 09:39 Dose: 100 mg Enoxaparin Sodium (Lovenox) 40 mg SC DAILY [facility] PRN Reason: Protocol Last Admin: 11/28/17 09:40 Dose: 40 mg Gabapentin (Neurontin) 600 mg PO Q8 [facility] Last Admin: 11/28/17 09:41 Dose: 600 mg Guaifenesin (Mucinex La) 600 mg PO Q12 [facility] Last Admin: 11/28/17 09:41 Dose: 600 mg Guaifenesin (Robitussin) 100 mg PO Q6 PRN PRN Reason: Cough Last Admin: 11/21/17 21:55 Dose: 100 mg Ipratropium [place] (Atrovent) 0.5 mg IH RQID [facility] Last Admin: 11/28/17 08:01 Dose: 0.5 mg Levalbuterol HCl (Xopenex) 0.63 mg INH RQ4 PRN PRN Reason: Shortness of Breath Last Admin: 11/28/17 08:00 Dose: 0.63 mg Lidocaine (Lidoderm) 1 ea TD DAILY PRN PRN Reason: Pain, moderate (4-7) Last Admin: 11/27/17 16:50 Dose: 1 ea Losartan Potassium (Cozaar) 50 mg PO DAILY [facility] Last Admin: 11/28/17 09:39 Dose: 50 mg Methimazole (Tapazole) 10 mg PO BID [facility] Last Admin: 11/28/17 09:42 Dose: 10 mg Methylprednisolone (Solu-Medrol) 30 mg IVP DAILY [facility] Last Admin: 11/28/17 09:45 Dose: 30 mg Mirtazapine (Remeron) 15 mg PO HS [facility] Last Admin: 11/27/17 21:37 Dose: 15 mg Ondansetron HCl (Zofran Inj) 4 mg IVP Q4 PRN PRN Reason: Nausea/Vomiting Last Admin: 11/13/17 19:35 Dose: 4 mg Pantoprazole Sodium (Protonix Ec Tab) 40 mg PO DAILY [facility] Last Admin: 11/28/17 09:42 Dose: 40 mg Theophylline (Uniphyl) 400 mg PO DAILY [facility] Last Admin: 11/28/17 09:43 Dose: 400 mg Zolpidem Tartrate (Ambien) 5 mg PO HS PRN PRN Reason: Insomnia Last Admin: 11/27/17 21:37 Dose: 5 mg - Labs Labs: 11/27/17 05:52 11/27/17 05:52 PT 11.1 Seconds (9.8-13.1) 11/10/17 17:32 INR 1.0 (0.9-1.2) 11/10/17 17:32 APTT 20.7 Seconds (25.6-37.1) L 11/10/17 17:32
--- NOTE | 2017-11-28 11:21 | CP.PCM.PN ---
<Linda Epps - Last Filed: 11/28/17 11:51> Subjective - Date & Time of Evaluation Date of Evaluation: 11/28/17 Time of Evaluation: 11:00 - Subjective Subjective: Patient was seen and examined today with Dr. Camilo. She was sitting in her chair, dyspneic when speaking and on HFNC 20, 35%. She reports that she has been coughing and feels that sputum gets stuck in her throat. She reports feeling her heart racing. Denies fevers, chill, nausea, vomiting, abdominal pain, diarrhea, constipation. Objective - Vital Signs/Intake and Output Vital Signs (last 24 hours): Temp Pulse Resp BP Pulse Ox 98.1 F 82 18 131/78 95 11/28/17 07:51 11/28/17 09:39 11/28/17 08:02 11/28/17 09:39 11/28/17 07:51 - Medications Medications: Current Medications Acetaminophen (Tylenol 325mg Tab) 650 mg PO Q6 PRN PRN Reason: Pain, Mild (1-3)/headache Last Admin: 11/27/17 04:49 Dose: 650 mg Anastrozole (Arimidex 1 Mg Tab) 1 mg PO DAILY [facility] Last Admin: 11/28/17 09:36 Dose: 1 mg Aspirin (Ecotrin) 325 mg PO DAILY [facility] Last Admin: 11/28/17 09:40 Dose: 325 mg Atorvastatin Calcium (Lipitor) 40 mg PO DAILY [facility] Last Admin: 11/28/17 09:40 Dose: 40 mg Dicyclomine HCl (Bentyl) 10 mg PO QID PRN PRN Reason: Pain, moderate (4-7) Last Admin: 11/16/17 08:39 Dose: 10 mg Diltiazem HCl (Cardizem) 30 mg PO QID [facility] Last Admin: 11/28/17 09:37 Dose: 30 mg Doxycycline Hyclate (Doryx) 100 mg PO Q12 [facility] PRN Reason: Protocol Last Admin: 11/28/17 09:39 Dose: 100 mg Enoxaparin Sodium (Lovenox) 40 mg SC DAILY [facility] PRN Reason: Protocol Last Admin: 11/28/17 09:40 Dose: 40 mg Gabapentin (Neurontin) 600 mg PO Q8 [facility] Last Admin: 11/28/17 09:41 Dose: 600 mg Guaifenesin (Mucinex La) 600 mg PO Q12 [facility] Last Admin: 11/28/17 09:41 Dose: 600 mg Guaifenesin (Robitussin) 100 mg PO Q6 PRN PRN Reason: Cough Last Admin: 11/21/17 21:55 Dose: 100 mg Ipratropium Union (Atrovent) 0.5 mg IH RQID [facility] Last Admin: 11/28/17 11:17 Dose: 0.5 mg Levalbuterol HCl (Xopenex) 0.63 mg INH RQ4 PRN PRN Reason: Shortness of Breath Last Admin: 11/28/17 08:00 Dose: 0.63 mg Lidocaine (Lidoderm) 1 ea TD DAILY PRN PRN Reason: Pain, moderate (4-7) Last Admin: 11/27/17 16:50 Dose: 1 ea Losartan Potassium (Cozaar) 50 mg PO DAILY [facility] Last Admin: 11/28/17 09:39 Dose: 50 mg Methimazole (Tapazole) 10 mg PO BID [facility] Last Admin: 11/28/17 09:42 Dose: 10 mg Methylprednisolone (Solu-Medrol) 30 mg IVP DAILY [facility] Last Admin: 11/28/17 09:45 Dose: 30 mg Mirtazapine (Remeron) 15 mg PO HS [facility] Last Admin: 11/27/17 21:37 Dose: 15 mg Ondansetron HCl (Zofran Inj) 4 mg IVP Q4 PRN PRN Reason: Nausea/Vomiting Last Admin: 11/13/17 19:35 Dose: 4 mg Pantoprazole Sodium (Protonix Ec Tab) 40 mg PO DAILY [facility] Last Admin: 11/28/17 09:42 Dose: 40 mg Theophylline (Uniphyl) 400 mg PO DAILY [facility] Last Admin: 11/28/17 09:43 Dose: 400 mg Zolpidem Tartrate (Ambien) 5 mg PO HS PRN PRN Reason: Insomnia Last Admin: 11/27/17 21:37 Dose: 5 mg - Labs Labs: 11/27/17 05:52 11/27/17 05:52 PT 11.1 Seconds (9.8-13.1) 11/10/17 17:32 INR 1.0 (0.9-1.2) 11/10/17 17:32 APTT 20.7 Seconds (25.6-37.1) L 11/10/17 17:32 - Constitutional Appears: Non-toxic, No Acute Distress, Chronically Ill - Head Exam Head Exam: NORMAL INSPECTION - Eye Exam Eye Exam: Normal appearance - ENT Exam ENT Exam: Mucous Membranes Moist - Neck Exam Neck Exam: Normal Inspection (+ Tracheostomy scar present at midline. ). absent : Lymphadenopathy, Tenderness, Thyromegaly - Respiratory Exam Respiratory Exam: Decreased Breath Sounds, Clear to Ausculation Bilateral, Prolonged Expiratory Phase, Rhonchi, Wheezes (expiratory wheeze). absent: Chest Wall Tenderness, Rales, Stridor - Cardiovascular Exam Cardiovascular Exam: Tachycardia, +S1, +S2. absent: Clicks, Diastolic murmur, Gallop, Irregular Rhythm, JVD, Rubs, Murmur - GI/Abdominal Exam GI & Abdominal Exam: Distended, Soft, Normal Bowel Sounds. absent: Firm, Guarding, Rigid, Tenderness, Pulsatile Mass, Rebound - Extremities Exam Extremities Exam: Normal Capillary Refill, Normal Inspection (Bilateral lower extremity chronic bruising. ). absent: Calf Tenderness, Joint Swelling - Back Exam Back Exam: NORMAL INSPECTION - Neurological Exam Neurological Exam: Alert, Awake, Oriented x3 - Psychiatric Exam Psychiatric exam: Normal Affect, Normal Mood - Skin Skin Exam: Dry, Intact, Normal Color, Warm Assessment and Plan (1) Acute exacerbation of chronic obstructive pulmonary disease (COPD) Status: Acute (2) Acute exacerbation of CHF (congestive heart failure) Status: Acute (3) C. difficile colitis Status: Acute (4) Hyperthyroidism Status: Chronic (5) HTN (hypertension) Status: Chronic (6) Hx of breast cancer Status: Acute (7) DVT prophylaxis Status: Acute - Assessment and Plan (Free Text) Assessment: 67 yo f with medical history including COPD, CHF, hypothyroidism, history of breast Cancer s/p mastectomy, chronic RUE lymphedema was brought into the ED because of dyspnea. Patient was then found to be in respiratory failure secondary to COPD and CHF exacerbation. Patient was admitted to ICU where she was on bipap and IV steroids and diuretics. She is no longer in the ICU. Patient is currently on HNFC 20L 35%. Tentative TCU transfer once patient is asymptomatic during physical therapy. No acute changes, awaiting improvement with high flow. Physical therapy following. Procalcitonin level reported as 0.05. Plan: (1) Acute exacerbation of chronic obstructive pulmonary disease (COPD) Assessment & Plan: Continue current management: - As per Dr. Benz's recommendations: continue Xopenex due to patient's tachycardia. LAMA use only, reserve SUKHDEV for rescue treatment. Patient is now on Solumedrol 40mg Q8H. - Theophylline 400mg daily. Repeat Theophylline level: 9.3. Repeat Theophylline tomorrow in the am. - Oxygen: Patient on HFNC 20L 35%. - Continue Physical therapy when tolerated. - Continue Chest physiotherapy. - She can be transferred to TCU once patient is able to tolerate PT without symptoms. (2) Acute exacerbation of CHF (congestive heart failure) Assessment & Plan: Continue current management: Diuretics prn - Metoprolol changed to Diltiazem 30mg po QID. (3) C. difficile colitis Assessment & Plan: Continue current management: Continue Vancomycin for a total of 14 days of treatment. (4) Hyperthyroidism Assessment & Plan: Patient's TSH level on repeat: 0.09. - T4: 2.02; Free T4: 0.23; TSH: 0.26. - Continue current Endocrinology recommendation: Methimazole 10mg po BID. (5) HTN (hypertension) Assessment & Plan: Continue current management: Diltiazem and Losartan. (6) Hx of breast cancer Assessment & Plan: Continue current management: Arimidex. (7) DVT prophylaxis Assessment & Plan: Continue Lovenox. <Georgia Camilo - Last Filed: 11/28/17 16:46> Objective - Vital Signs/Intake and Output Vital Signs (last 24 hours): Temp Pulse Resp BP Pulse Ox 98 F 95 H 22 106/67 94 L 11/28/17 16:43 11/28/17 16:43 11/28/17 16:43 11/28/17 16:43 11/28/17 16:43 - Medications Medications: Current Medications Acetaminophen (Tylenol 325mg Tab) 650 mg PO Q6 PRN PRN Reason: Pain, Mild (1-3)/headache Last Admin: 11/28/17 11:27 Dose: 650 mg Anastrozole (Arimidex 1 Mg Tab) 1 mg PO DAILY [facility] Last Admin: 11/28/17 09:36 Dose: 1 mg Aspirin (Ecotrin) 325 mg PO DAILY [facility] Last Admin: 11/28/17 09:40 Dose: 325 mg Atorvastatin Calcium (Lipitor) 40 mg PO DAILY [facility] Last Admin: 11/28/17 09:40 Dose: 40 mg Dicyclomine HCl (Bentyl) 10 mg PO QID PRN PRN Reason: Pain, moderate (4-7) Last Admin: 11/16/17 08:39 Dose: 10 mg Diltiazem HCl (Cardizem) 30 mg PO QID [facility] Last Admin: 11/28/17 16:32 Dose: 30 mg Doxycycline Hyclate (Doryx) 100 mg PO Q12 [facility] PRN Reason: Protocol Last Admin: 11/28/17 09:39 Dose: 100 mg Enoxaparin Sodium (Lovenox) 40 mg SC DAILY [facility] PRN Reason: Protocol Last Admin: 11/28/17 09:40 Dose: 40 mg Gabapentin (Neurontin) 600 mg PO Q8 [facility] Last Admin: 11/28/17 16:33 Dose: 600 mg Guaifenesin (Mucinex La) 600 mg PO Q12 [facility] Last Admin: 11/28/17 09:41 Dose: 600 mg Guaifenesin (Robitussin) 100 mg PO Q6 PRN PRN Reason: Cough Last Admin: 11/21/17 21:55 Dose: 100 mg Ipratropium Union (Atrovent) 0.5 mg IH RQID [facility] Last Admin: 11/28/17 15:33 Dose: 0.5 mg Levalbuterol HCl (Xopenex) 0.63 mg INH RQ4 PRN PRN Reason: Shortness of Breath Last Admin: 11/28/17 08:00 Dose: 0.63 mg Lidocaine (Lidoderm) 1 ea TD DAILY PRN PRN Reason: Pain, moderate (4-7) Last Admin: 11/27/17 16:50 Dose: 1 ea Losartan Potassium (Cozaar) 50 mg PO DAILY [facility] Last Admin: 11/28/17 09:39 Dose: 50 mg Methimazole (Tapazole) 10 mg PO BID [facility] Last Admin: 11/28/17 16:33 Dose: 10 mg Methylprednisolone (Solu-Medrol) 40 mg IVP Q8H [facility] Last Admin: 11/28/17 13:20 Dose: 40 mg Mirtazapine (Remeron) 15 mg PO HS [facility] Last Admin: 11/27/17 21:37 Dose: 15 mg Ondansetron HCl (Zofran Inj) 4 mg IVP Q4 PRN PRN Reason: Nausea/Vomiting Last Admin: 11/13/17 19:35 Dose: 4 mg Pantoprazole Sodium (Protonix Ec Tab) 40 mg PO DAILY [facility] Last Admin: 11/28/17 09:42 Dose: 40 mg Theophylline (Uniphyl) 400 mg PO DAILY [facility] Last Admin: 11/28/17 09:43 Dose: 400 mg Zolpidem Tartrate (Ambien) 5 mg PO HS PRN PRN Reason: Insomnia Last Admin: 11/27/17 21:37 Dose: 5 mg - Labs Labs: 11/27/17 05:52 11/27/17 05:52 PT 11.1 Seconds (9.8-13.1) 11/10/17 17:32 INR 1.0 (0.9-1.2) 11/10/17 17:32 APTT 20.7 Seconds (25.6-37.1) L 11/10/17 17:32 Attending/Attestation - Attestation I have personally seen and examined this patient.: Yes I have fully participated in the care of the patient.: Yes I have reviewed all pertinent clinical information, including history, physical exam and plan: Yes
[2017-11-28] MEDS ORDERED: methylPREDNISolone 40 MG in Sodium Chloride 0.9% 50 ML IV SCH (12:00)
--- NOTE | 2017-11-28 17:31 | PN ---
DATE: 11/28/2017 ENDO FOLLOWUP NOTE LOCATION: Room 408. SUBJECTIVE: This is a 67-year-old female presenting here with acute exacerbation of COPD with supervening congestive heart failure and is now improving clinically and hemodynamically as noted thereof. She also has overt hyperthyroidism with recent dose modifications undertaken thereof. LABORATORY DATA: Her latest thyroid study showed a T4 of 2.02 with a TSH of 0.26 and a free T4 of 0.23. Her albumin level is 3. Her latest chemistry showed a BUN of 21, sodium 137, potassium 3.9, chloride 98, CO2 of 35, glucose 91, and creatinine 0.6. ASSESSMENT AND PLAN: So at this time, we will continue the modified Tapazole dosing of 10 mg b.i.d. after meals as ordered to allow for dose equilibration. With the underlying hypoalbuminemia, we would expect low normal thyroxine values as noted. We will obtain serial thyroid studies and titrate her dose regimen accordingly. Polly Vu MD
[2017-11-29] MEDS: MethylPREDNISolone 40 mg Vial IVP SCH ×3 (05:33→21:00)
[2017-11-29 06:15] LABS: BASO % 0.2 % (0.0-2.0); HEMOGLOBIN 11.3 g/dL (12.0-16.0); LYMPH # 0.4 K/uL (1.0-4.3); LYMPH % 3.3 % (20.0-40.0); MEAN CORPUSCULAR HEMOGLOBIN 28.8 pg (27.0-31.0); MEAN CORPUSCULAR HGB CONC 32.3 g/dL (33.0-37.0); MEAN PLATELET VOLUME 7.7 fl (7.2-11.7); MONO # 0.2 K/uL (0.0-0.8); MONO % 1.7 % (0.0-10.0); NEUT # 12.2 K/uL (1.8-7.0); NEUT % 94.8 % (50.0-75.0); NRBC % 0.1 % (0.0-0.0); PLATELET COUNT 225 K/uL (130-400); RBC 3.93 Mil/uL (3.80-5.20); RED CELL DISTRIBUTION WIDTH 19.4 % (11.5-14.5); WHITE BLOOD COUNT 12.9 K/uL (4.8-10.8)
[2017-11-29 06:29] LABS: ALB/GLOB RATIO 1.3 (1.0-2.1); ALBUMIN 2.9 g/dL (3.5-5.0); ALT/SGPT 40 U/L (9-52); AST/SGOT 24 U/L (14-36); BLOOD UREA NITROGEN 24 mg/dl (7-17); CALCIUM 8.6 mg/dL (8.4-10.2); GFR NON-AFRICAN AMERICAN > 60
[2017-11-29 06:32] LABS: T4 1.69 ug/dl (5.5-11.0)
[2017-11-29] MEDS: Ipratropium 0.02% Inhal Soln (0.5 mg/2.5 ml) UD IH SCH ×4 (07:41→19:41)
--- NOTE | 2017-11-29 08:40 | CP.PCM.PN ---
<SupriyaLinda - Last Filed: 11/29/17 11:35> Subjective - Date & Time of Evaluation Date of Evaluation: 11/29/17 Time of Evaluation: 08:10 - Subjective Subjective: Patient seen and examined at bedside with Dr. Camilo. She is resting in her bed and dyspneic when speaking. She reports that after her respiratory treatment this morning she feels a bit better. Chest Physiotherapy was given in the room after the physical exam. She states that around 4 am this morning she had a sharp shooting pain from the bottom of her right heel radiating to the back of her knee. She states that it is resolved now but was very uncomfortable. She denies lower extremity edema, calf tenderness, F/C/N/V/D, and chest pain. Patient reports that she will participate in physical therapy today. Objective - Vital Signs/Intake and Output Vital Signs (last 24 hours): Temp Pulse Resp BP Pulse Ox 97.9 F 89 18 107/69 93 L 11/29/17 07:58 11/29/17 07:58 11/29/17 07:58 11/29/17 07:58 11/29/17 07:58 - Medications Medications: Current Medications Acetaminophen (Tylenol 325mg Tab) 650 mg PO Q6 PRN PRN Reason: Pain, Mild (1-3)/headache Last Admin: 11/29/17 02:58 Dose: 650 mg Anastrozole (Arimidex 1 Mg Tab) 1 mg PO DAILY [facility] Last Admin: 11/28/17 09:36 Dose: 1 mg Aspirin (Ecotrin) 325 mg PO DAILY [facility] Last Admin: 11/28/17 09:40 Dose: 325 mg Atorvastatin Calcium (Lipitor) 40 mg PO DAILY [facility] Last Admin: 11/28/17 09:40 Dose: 40 mg Dicyclomine HCl (Bentyl) 10 mg PO QID PRN PRN Reason: Pain, moderate (4-7) Last Admin: 11/16/17 08:39 Dose: 10 mg Diltiazem HCl (Cardizem) 30 mg PO QID [facility] Last Admin: 11/28/17 21:16 Dose: 30 mg Doxycycline Hyclate (Doryx) 100 mg PO Q12 [facility] PRN Reason: Protocol Last Admin: 11/28/17 21:18 Dose: 100 mg Enoxaparin Sodium (Lovenox) 40 mg SC DAILY [facility] PRN Reason: Protocol Last Admin: 11/28/17 09:40 Dose: 40 mg Gabapentin (Neurontin) 600 mg PO Q8 [facility] Last Admin: 11/29/17 00:42 Dose: 600 mg Guaifenesin (Mucinex La) 600 mg PO Q12 [facility] Last Admin: 11/28/17 21:18 Dose: 600 mg Guaifenesin (Robitussin) 100 mg PO Q6 PRN PRN Reason: Cough Last Admin: 11/21/17 21:55 Dose: 100 mg Ipratropium Mumford (Atrovent) 0.5 mg IH RQID [facility] Last Admin: 11/29/17 07:41 Dose: 0.5 mg Levalbuterol HCl (Xopenex) 0.63 mg INH RQ4 PRN PRN Reason: Shortness of Breath Last Admin: 11/28/17 19:10 Dose: 0.63 mg Lidocaine (Lidoderm) 1 ea TD DAILY PRN PRN Reason: Pain, moderate (4-7) Last Admin: 11/27/17 16:50 Dose: 1 ea Losartan Potassium (Cozaar) 50 mg PO DAILY [facility] Last Admin: 11/28/17 09:39 Dose: 50 mg Methimazole (Tapazole) 10 mg PO BID [facility] Last Admin: 11/28/17 16:33 Dose: 10 mg Methylprednisolone (Solu-Medrol) 40 mg IVP Q8H [facility] Last Admin: 11/29/17 05:33 Dose: 40 mg Mirtazapine (Remeron) 15 mg PO HS [facility] Last Admin: 11/28/17 21:19 Dose: 15 mg Ondansetron HCl (Zofran Inj) 4 mg IVP Q4 PRN PRN Reason: Nausea/Vomiting Last Admin: 11/13/17 19:35 Dose: 4 mg Pantoprazole Sodium (Protonix Ec Tab) 40 mg PO DAILY [facility] Last Admin: 11/28/17 09:42 Dose: 40 mg Theophylline (Uniphyl) 400 mg PO DAILY [facility] Last Admin: 11/28/17 09:43 Dose: 400 mg Zolpidem Tartrate (Ambien) 5 mg PO HS PRN PRN Reason: Insomnia Last Admin: 11/28/17 23:11 Dose: 5 mg - Labs Labs: 11/29/17 05:00 11/29/17 05:00 PT 11.1 Seconds (9.8-13.1) 11/10/17 17:32 INR 1.0 (0.9-1.2) 11/10/17 17:32 APTT 20.7 Seconds (25.6-37.1) L 11/10/17 17:32 - Constitutional Appears: Well, Non-toxic, No Acute Distress, Chronically Ill - Head Exam Head Exam: NORMAL INSPECTION - Eye Exam Eye Exam: Normal appearance - ENT Exam ENT Exam: Mucous Membranes Moist, Normal Oropharynx - Neck Exam Neck Exam: Normal Inspection (+ tracheostomy scar). absent: Lymphadenopathy, Tenderness, Thyromegaly - Respiratory Exam Respiratory Exam: Decreased Breath Sounds, Prolonged Expiratory Phase, Wheezes. absent: Chest Wall Tenderness, Rales, Rhonchi, Respiratory Distress, Stridor - Cardiovascular Exam Cardiovascular Exam: REGULAR RHYTHM, RRR, +S1, +S2. absent: Clicks, Diastolic murmur, Gallop, JVD, Rubs, Murmur - GI/Abdominal Exam GI & Abdominal Exam: Distended, Soft, Normal Bowel Sounds. absent: Firm, Guarding, Rigid, Tenderness, Pulsatile Mass, Rebound Additional comments: + ecchymosis from Anticoagulation shots. - Extremities Exam Extremities Exam: Normal Capillary Refill, Normal Inspection. absent: Calf Tenderness, Joint Swelling, Pedal Edema, Tenderness Additional comments: Mild discomfort with Zoila's on the right. +2 dorsalis pedis bilaterally but weaker on the right; +2 tibial pulse bilaterally, weaker on the right. No erythema, no edema, normal temperature to touch bilaterally. No calf tenderness ecchymosis present bilateral lower extremities. - Back Exam Back Exam: NORMAL INSPECTION. absent: CVA tenderness (L), CVA tenderness (R), paraspinal tenderness, rash noted, tenderness, vertebral tenderness - Neurological Exam Neurological Exam: Alert, Awake, Oriented x3 - Psychiatric Exam Psychiatric exam: Normal Affect, Normal Mood - Skin Skin Exam: Dry, Intact, Normal Color, Warm Assessment and Plan (1) Acute exacerbation of chronic obstructive pulmonary disease (COPD) Status: Acute (2) Acute exacerbation of CHF (congestive heart failure) Status: Acute (3) C. difficile colitis Status: Acute (4) Hyperthyroidism Status: Chronic (5) HTN (hypertension) Status: Chronic (6) Hx of breast cancer Status: Acute (7) DVT prophylaxis Status: Acute - Assessment and Plan (Free Text) Assessment: 67 yo f with medical history including COPD, CHF, hypothyroidism, history of breast Cancer s/p mastectomy, chronic RUE lymphedema was brought into the ED because of dyspnea. Patient was then found to be in respiratory failure secondary to COPD and CHF exacerbation. Patient was admitted to ICU where she was on bipap and IV steroids and diuretics. She is no longer in the ICU. Patient is currently on HNFC 20L 35%. Tentative TCU transfer once patient is asymptomatic during physical therapy. No acute changes, awaiting improvement with high flow. Physical therapy following. Plan: (1) Acute exacerbation of chronic obstructive pulmonary disease (COPD) Assessment & Plan: Continue current management: - As per Dr. Benz's recommendations: continue Xopenex due to patient's tachycardia. LAMA use only, reserve SUKHDEV for rescue treatment. Patient is now on Solumedrol 40mg Q8H. - Theophylline 400mg daily. Repeat Theophylline level: 9.3. Repeat Theophylline tomorrow in the am. - Oxygen: Patient on HFNC 20L 35%. - Continue Physical therapy when tolerated. - Continue Chest physiotherapy. - She can be transferred to TCU once patient is able to tolerate PT without symptoms. (2) Acute exacerbation of CHF (congestive heart failure) Assessment & Plan: Continue current management: Diuretics prn - Metoprolol changed to Diltiazem 30mg po QID (3) C. difficile colitis Assessment & Plan: - Resolved. (4) Hyperthyroidism Assessment & Plan: Patient's TSH level on repeat: 0.09. - T4: 2.02; Free T4: 0.23; TSH: 0.26. - Continue current Endocrinology recommendation: Methimazole 10mg po BID. (5) HTN (hypertension) Assessment & Plan: Continue current management: Diltiazem and Losartan. (6) Hx of breast cancer Assessment & Plan: Continue current management: Arimidex. (7) DVT prophylaxis Assessment & Plan: follow up on Right lower extremity ultrasound. Continue Lovenox. <Georgia Camilo - Last Filed: 11/29/17 15:48> Objective - Vital Signs/Intake and Output Vital Signs (last 24 hours): Temp Pulse Resp BP Pulse Ox 98.3 F 75 20 110/65 95 11/29/17 12:17 11/29/17 13:26 11/29/17 13:26 11/29/17 13:26 11/29/17 13:26 - Medications Medications: Current Medications Acetaminophen (Tylenol 325mg Tab) 650 mg PO Q6 PRN PRN Reason: Pain, Mild (1-3)/headache Last Admin: 11/29/17 02:58 Dose: 650 mg Anastrozole (Arimidex 1 Mg Tab) 1 mg PO DAILY [facility] Last Admin: 11/29/17 09:45 Dose: 1 mg Aspirin (Ecotrin) 325 mg PO DAILY [facility] Last Admin: 11/29/17 09:41 Dose: 325 mg Atorvastatin Calcium (Lipitor) 40 mg PO DAILY [facility] Last Admin: 11/29/17 09:41 Dose: 40 mg Dextrose (Dextrose 50% Inj) 0 ml IV STAT PRN; Protocol PRN Reason: Hypoglycemia Protocol Dextrose (Glutose 15) 0 gm PO ONCE PRN; Protocol PRN Reason: Hypoglycemia Protocol Dicyclomine HCl (Bentyl) 10 mg PO QID PRN PRN Reason: Pain, moderate (4-7) Last Admin: 11/16/17 08:39 Dose: 10 mg Diltiazem HCl (Cardizem) 30 mg PO QID [facility] Last Admin: 11/29/17 13:26 Dose: 30 mg Doxycycline Hyclate (Doryx) 100 mg PO Q12 [facility] PRN Reason: Protocol Last Admin: 11/29/17 09:42 Dose: 100 mg Enoxaparin Sodium (Lovenox) 40 mg SC DAILY [facility] PRN Reason: Protocol Last Admin: 11/29/17 09:38 Dose: 40 mg Gabapentin (Neurontin) 600 mg PO Q8 [facility] Last Admin: 11/29/17 09:41 Dose: 600 mg Glucagon (Glucagen Diagnostic Kit) 0 mg IM STAT PRN; Protocol PRN Reason: Hypoglycemia Protocol Guaifenesin (Mucinex La) 600 mg PO Q12 [facility] Last Admin: 11/29/17 09:42 Dose: 600 mg Guaifenesin (Robitussin) 100 mg PO Q6 PRN PRN Reason: Cough Last Admin: 11/21/17 21:55 Dose: 100 mg Insulin Human Regular (Humulin R) 0 units SC ACHS [facility] PRN Reason: Protocol Last Admin: 11/29/17 13:28 Dose: 4 u Ipratropium [place] (Atrovent) 0.5 mg IH RQID [facility] Last Admin: 11/29/17 11:51 Dose: 0.5 mg Levalbuterol HCl (Xopenex) 0.63 mg INH RQ4 PRN PRN Reason: Shortness of Breath Last Admin: 11/28/17 19:10 Dose: 0.63 mg Lidocaine (Lidoderm) 1 ea TD DAILY PRN PRN Reason: Pain, moderate (4-7) Last Admin: 11/29/17 09:38 Dose: 1 ea Losartan Potassium (Cozaar) 50 mg PO DAILY [facility] Last Admin: 11/29/17 09:40 Dose: 50 mg Methimazole (Tapazole) 10 mg PO DAILY [facility] Methylprednisolone (Solu-Medrol) 40 mg IVP Q8H [facility] Last Admin: 11/29/17 13:29 Dose: 40 mg Mirtazapine (Remeron) 15 mg PO HS [facility] Last Admin: 11/28/17 21:19 Dose: 15 mg Ondansetron HCl (Zofran Inj) 4 mg IVP Q4 PRN PRN Reason: Nausea/Vomiting Last Admin: 11/13/17 19:35 Dose: 4 mg Pantoprazole Sodium (Protonix Ec Tab) 40 mg PO DAILY [facility] Last Admin: 11/29/17 09:42 Dose: 40 mg Theophylline (Uniphyl) 400 mg PO DAILY [facility] Last Admin: 11/29/17 09:41 Dose: 400 mg Zolpidem Tartrate (Ambien) 5 mg PO HS PRN PRN Reason: Insomnia Last Admin: 11/28/17 23:11 Dose: 5 mg - Labs Labs: 11/29/17 05:00 11/29/17 05:00 PT 11.1 Seconds (9.8-13.1) 11/10/17 17:32 INR 1.0 (0.9-1.2) 11/10/17 17:32 APTT 20.7 Seconds (25.6-37.1) L 11/10/17 17:32 Attending/Attestation - Attestation I have personally seen and examined this patient.: Yes I have fully participated in the care of the patient.: Yes I have reviewed all pertinent clinical information, including history, physical exam and plan: Yes
--- NOTE | 2017-11-29 09:37 | CP.PCM.PN ---
Subjective - Date & Time of Evaluation Date of Evaluation: 11/29/17 Time of Evaluation: 09:37 - Subjective Subjective: Continues to have problems with congested cough, inability to raise sputum. Her vital signs remain stable, but she is still mildly tachycardic and tachypneic. [place] is still an issue with minimal exertion. Her SpO2 is okay , but she is still on HFNC. Hyperglycemia as a result of the increased steroid dosing is being covered with RI. Her cough does sound congested, but the secretions are more loose. On exam there are sonorous rhonchi bilaterally, but the air exchange seems improved. There are no audible wheezes appreciated this morning. BP is okay, and tachycardia is in the 90-110 range mostly. Will continue the present steroid dose and control glucose with accucheck coverage. Objective - Vital Signs/Intake and Output Vital Signs (last 24 hours): Temp Pulse Resp BP Pulse Ox 97.9 F 89 18 107/69 93 L 11/29/17 07:58 11/29/17 07:58 11/29/17 07:58 11/29/17 07:58 11/29/17 07:58 - Medications Medications: Current Medications Acetaminophen (Tylenol 325mg Tab) 650 mg PO Q6 PRN PRN Reason: Pain, Mild (1-3)/headache Last Admin: 11/29/17 02:58 Dose: 650 mg Anastrozole (Arimidex 1 Mg Tab) 1 mg PO DAILY [facility] Last Admin: 11/28/17 09:36 Dose: 1 mg Aspirin (Ecotrin) 325 mg PO DAILY [facility] Last Admin: 11/28/17 09:40 Dose: 325 mg Atorvastatin Calcium (Lipitor) 40 mg PO DAILY [facility] Last Admin: 11/28/17 09:40 Dose: 40 mg Dicyclomine HCl (Bentyl) 10 mg PO QID PRN PRN Reason: Pain, moderate (4-7) Last Admin: 11/16/17 08:39 Dose: 10 mg Diltiazem HCl (Cardizem) 30 mg PO QID [facility] Last Admin: 11/28/17 21:16 Dose: 30 mg Doxycycline Hyclate (Doryx) 100 mg PO Q12 [facility] PRN Reason: Protocol Last Admin: 11/28/17 21:18 Dose: 100 mg Enoxaparin Sodium (Lovenox) 40 mg SC DAILY [facility] PRN Reason: Protocol Last Admin: 11/28/17 09:40 Dose: 40 mg Gabapentin (Neurontin) 600 mg PO Q8 [facility] Last Admin: 11/29/17 00:42 Dose: 600 mg Guaifenesin (Mucinex La) 600 mg PO Q12 [facility] Last Admin: 11/28/17 21:18 Dose: 600 mg Guaifenesin (Robitussin) 100 mg PO Q6 PRN PRN Reason: Cough Last Admin: 11/21/17 21:55 Dose: 100 mg Ipratropium [place] (Atrovent) 0.5 mg IH RQID [facility] Last Admin: 11/29/17 07:41 Dose: 0.5 mg Levalbuterol HCl (Xopenex) 0.63 mg INH RQ4 PRN PRN Reason: Shortness of Breath Last Admin: 11/28/17 19:10 Dose: 0.63 mg Lidocaine (Lidoderm) 1 ea TD DAILY PRN PRN Reason: Pain, moderate (4-7) Last Admin: 11/27/17 16:50 Dose: 1 ea Losartan Potassium (Cozaar) 50 mg PO DAILY [facility] Last Admin: 11/28/17 09:39 Dose: 50 mg Methimazole (Tapazole) 10 mg PO BID [facility] Last Admin: 11/28/17 16:33 Dose: 10 mg Methylprednisolone (Solu-Medrol) 40 mg IVP Q8H [facility] Last Admin: 11/29/17 05:33 Dose: 40 mg Mirtazapine (Remeron) 15 mg PO HS [facility] Last Admin: 11/28/17 21:19 Dose: 15 mg Ondansetron HCl (Zofran Inj) 4 mg IVP Q4 PRN PRN Reason: Nausea/Vomiting Last Admin: 11/13/17 19:35 Dose: 4 mg Pantoprazole Sodium (Protonix Ec Tab) 40 mg PO DAILY [facility] Last Admin: 11/28/17 09:42 Dose: 40 mg Theophylline (Uniphyl) 400 mg PO DAILY [facility] Last Admin: 11/28/17 09:43 Dose: 400 mg Zolpidem Tartrate (Ambien) 5 mg PO HS PRN PRN Reason: Insomnia Last Admin: 11/28/17 23:11 Dose: 5 mg - Labs Labs: 11/29/17 05:00 11/29/17 05:00 PT 11.1 Seconds (9.8-13.1) 11/10/17 17:32 INR 1.0 (0.9-1.2) 11/10/17 17:32 APTT 20.7 Seconds (25.6-37.1) L 11/10/17 17:32
[2017-11-29] MEDS: Lidocaine 5% Patch TD PRN (09:38)
[2017-11-29] MEDS: Enoxaparin 40 mg Syringe SC SCH (09:38)
[2017-11-29] MEDS: Aspirin 325 mg EC Tablets PO SCH (09:41)
[2017-11-29] MEDS: THEOPHYLLINE 400 MG T24(UNIPHYL) PO SCH (09:41)
[2017-11-29] MEDS: Pantoprazole 40 mg EC Tab PO SCH (09:42)
[2017-11-29] MEDS: guaiFENesin 600 mg ER Tab PO SCH ×2 (09:42→22:08)
[2017-11-29] MEDS ORDERED: Dextrose 50% SYRINGE Inj (50 ml) IV PRN (10:36)
[2017-11-29] MEDS ORDERED: Glucagon Recombinant 1 mg Inj IM PRN (10:36)
[2017-11-29 11:17] LABS: ANISOCYTOSIS SLIGHT; LYMPHOCYTE 2 % (20-50); MONOCYTE 5 % (0-10); NEUTROPHIL 93 % (42-75); PLATELET ESTIMATE NORMAL (NORMAL); TOTAL CELLS COUNTED 100
[2017-11-29 11:18] LABS: HYPOCHROMIC SLIGHT
[2017-11-29] MEDS: Insulin Regular 100 units/ml SC SCH ×3 (13:28→22:09)
--- NOTE | 2017-11-29 20:05 | PN ---
DATE: 11/29/2017 ENDO FOLLOWUP NOTE LOCATION: Room #408 SUBJECTIVE: This is a 67-year-old female with acute exacerbation of COPD with supervening congestive heart failure and is clinically and hemodynamically improving as noted thereof. Metabolically, she also had overt hyperthyroidism with recent dose adjustment undertaken thereof. LABORATORY DATA: Her latest chemistry shows a BUN of 24, sodium 135, potassium 4.2, chloride 94, CO2 of 31, glucose 287, and creatinine 0.5. Her glucose levels have ranged from 255 to 287 mg/dL. Her latest thyroid study shows a T4 of 1.69 with a TSH of 0.59 and a free T4 of 0.18. Her albumin level at this time. IMPRESSION AND PLAN: Since her TSH has near normalized at this time, we will lower the Tapazole now to 10 mg once daily as ordered. We will obtain serial chemistries and supplement accordingly as needed. We will obtain serial thyroid studies and adjust her dose regimen accordingly. We will follow. Polly Vu MD
[2017-11-30] MEDS: Levalbuterol 0.63 MG/3 ML Inhal Soln UD INH PRN (00:24)
[2017-11-30] MEDS: MethylPREDNISolone 40 mg Vial IVP SCH ×3 (03:56→21:58)
[2017-11-30] MEDS: Insulin Regular 100 units/ml SC SCH ×4 (06:51→22:00)
[2017-11-30] MEDS: Ipratropium 0.02% Inhal Soln (0.5 mg/2.5 ml) UD IH SCH ×4 (08:57→19:19)
--- NOTE | 2017-11-30 09:18 | CP.PCM.PN ---
<SupriyaLinda - Last Filed: 11/30/17 15:02> Subjective - Date & Time of Evaluation Date of Evaluation: 11/30/17 Time of Evaluation: 09:30 - Subjective Subjective: Patient seen and examined at bedside with Dr. Camilo. She is resting comfortably in her bed with slight dypsnea when speaking. She reports feeling well today but reports slight chest discomfort similar to her previous episodes that is relieved with pain medication. She also states that both her legs are hurting ( duplex was negative). Plan for L-TACH was discussed with patient given that she is having difficulty breathing without the HFNC. The patient states that she is not interested and she just wants to go home as her son is at [facility] in [place] [facility] for 16 years and she needs to go home to make a decision about his status since she is his POA. Denies palpitations, diaphoresis, SOB, F/C/N/V/ D. Objective - Vital Signs/Intake and Output Vital Signs (last 24 hours): Temp Pulse Resp BP Pulse Ox 97.8 F 89 20 143/72 95 11/30/17 07:53 11/30/17 07:53 11/30/17 08:19 11/30/17 07:53 11/30/17 07:53 - Medications Medications: Current Medications Acetaminophen (Tylenol 325mg Tab) 650 mg PO Q6 PRN PRN Reason: Pain, Mild (1-3)/headache Last Admin: 11/29/17 02:58 Dose: 650 mg Anastrozole (Arimidex 1 Mg Tab) 1 mg PO DAILY [facility] Last Admin: 11/29/17 09:45 Dose: 1 mg Aspirin (Ecotrin) 325 mg PO DAILY [facility] Last Admin: 11/29/17 09:41 Dose: 325 mg Atorvastatin Calcium (Lipitor) 40 mg PO DAILY [facility] Last Admin: 11/29/17 09:41 Dose: 40 mg Dextrose (Dextrose 50% Inj) 0 ml IV STAT PRN; Protocol PRN Reason: Hypoglycemia Protocol Dextrose (Glutose 15) 0 gm PO ONCE PRN; Protocol PRN Reason: Hypoglycemia Protocol Dicyclomine HCl (Bentyl) 10 mg PO QID PRN PRN Reason: Pain, moderate (4-7) Last Admin: 11/16/17 08:39 Dose: 10 mg Diltiazem HCl (Cardizem) 30 mg PO QID [facility] Last Admin: 11/29/17 23:08 Dose: 30 mg Doxycycline Hyclate (Doryx) 100 mg PO Q12 [facility] PRN Reason: Protocol Last Admin: 11/29/17 22:08 Dose: 100 mg Enoxaparin Sodium (Lovenox) 40 mg SC DAILY [facility] PRN Reason: Protocol Last Admin: 11/29/17 09:38 Dose: 40 mg Gabapentin (Neurontin) 600 mg PO Q8 [facility] Last Admin: 11/30/17 01:30 Dose: 600 mg Glucagon (Glucagen Diagnostic Kit) 0 mg IM STAT PRN; Protocol PRN Reason: Hypoglycemia Protocol Guaifenesin (Mucinex La) 600 mg PO Q12 [facility] Last Admin: 11/29/17 22:08 Dose: 600 mg Guaifenesin (Robitussin) 100 mg PO Q6 PRN PRN Reason: Cough Last Admin: 11/21/17 21:55 Dose: 100 mg Insulin Human Regular (Humulin R) 0 units SC ACHS [facility] PRN Reason: Protocol Last Admin: 11/30/17 06:51 Dose: 3 u Ipratropium [place] (Atrovent) 0.5 mg IH RQID [facility] Last Admin: 11/30/17 08:57 Dose: Not Given Levalbuterol HCl (Xopenex) 0.63 mg INH RQ4 PRN PRN Reason: Shortness of Breath Last Admin: 11/30/17 00:24 Dose: 0.63 mg Lidocaine (Lidoderm) 1 ea TD DAILY PRN PRN Reason: Pain, moderate (4-7) Last Admin: 11/29/17 09:38 Dose: 1 ea Losartan Potassium (Cozaar) 50 mg PO DAILY [facility] Last Admin: 11/29/17 09:40 Dose: 50 mg Methimazole (Tapazole) 10 mg PO DAILY [facility] Methylprednisolone (Solu-Medrol) 40 mg IVP Q8H [facility] Last Admin: 11/30/17 03:56 Dose: 40 mg Mirtazapine (Remeron) 15 mg PO HS [facility] Last Admin: 11/29/17 22:08 Dose: 15 mg Ondansetron HCl (Zofran Inj) 4 mg IVP Q4 PRN PRN Reason: Nausea/Vomiting Last Admin: 11/13/17 19:35 Dose: 4 mg Pantoprazole Sodium (Protonix Ec Tab) 40 mg PO DAILY [facility] Last Admin: 11/29/17 09:42 Dose: 40 mg Theophylline (Uniphyl) 400 mg PO DAILY [facility] Last Admin: 11/29/17 09:41 Dose: 400 mg Zolpidem Tartrate (Ambien) 5 mg PO HS PRN PRN Reason: Insomnia Last Admin: 11/29/17 23:03 Dose: 5 mg - Labs Labs: 11/29/17 05:00 11/29/17 05:00 PT 11.1 Seconds (9.8-13.1) 11/10/17 17:32 INR 1.0 (0.9-1.2) 11/10/17 17:32 APTT 20.7 Seconds (25.6-37.1) L 11/10/17 17:32 - Constitutional Appears: Well, Non-toxic, No Acute Distress, Chronically Ill - Head Exam Head Exam: NORMAL INSPECTION - Eye Exam Eye Exam: Normal appearance - ENT Exam ENT Exam: Mucous Membranes Moist, Normal Oropharynx - Neck Exam Neck Exam: Normal Inspection. absent: Lymphadenopathy, Tenderness, Thyromegaly - Respiratory Exam Respiratory Exam: Decreased Breath Sounds, Prolonged Expiratory Phase, Rhonchi, NORMAL BREATHING PATTERN. absent: Chest Wall Tenderness, Rales, Wheezes, Respiratory Distress, Stridor - Cardiovascular Exam Cardiovascular Exam: REGULAR RHYTHM, RRR, +S1, +S2. absent: Clicks, Diastolic murmur, Gallop, Rubs, +S4, Murmur - GI/Abdominal Exam GI & Abdominal Exam: Soft, Normal Bowel Sounds. absent: Distended, Firm, Guarding, Rigid, Tenderness, Mass, Organomegaly, Rebound - Extremities Exam Extremities Exam: Normal Capillary Refill, Normal Inspection (+2 dorsalis pedis bilaterally and +2 tibial pulse bilateral. ; RUE lymphedema.). absent: Calf Tenderness, Joint Swelling, Pedal Edema, Tenderness - Back Exam Back Exam: NORMAL INSPECTION. absent: CVA tenderness (L), CVA tenderness (R), muscle spasm, paraspinal tenderness, rash noted, tenderness, vertebral tenderness - Neurological Exam Neurological Exam: Alert, Awake, Oriented x3 - Psychiatric Exam Psychiatric exam: Normal Affect, Normal Mood - Skin Skin Exam: Dry, Intact, Normal Color, Warm Assessment and Plan (1) Acute exacerbation of chronic obstructive pulmonary disease (COPD) Status: Acute (2) Acute exacerbation of CHF (congestive heart failure) Status: Acute (3) C. difficile colitis Status: Acute (4) Hyperthyroidism Status: Chronic (5) HTN (hypertension) Status: Chronic (6) Hx of breast cancer Status: Acute (7) DVT prophylaxis Status: Acute - Assessment and Plan (Free Text) Assessment: 67 yo f with medical history including COPD, CHF, hypothyroidism, history of breast Cancer s/p mastectomy, chronic RUE lymphedema was brought into the ED because of dyspnea. Patient was then found to be in respiratory failure secondary to COPD and CHF exacerbation. Patient was admitted to ICU where she was on bipap and IV steroids and diuretics. She is no longer in the ICU. Patient is currently on HNFC 20L 35%. Discussed with patient about L-TACH transfer but she states she is not interested and she just wants to go home. No acute changes, awaiting improvement with high flow. Physical therapy following. Plan: (1) Acute exacerbation of chronic obstructive pulmonary disease (COPD) Assessment & Plan: Continue current management: - As per Dr. Benz's recommendations: continue Xopenex due to patient's tachycardia. LAMA use only, reserve SUKHDEV for rescue treatment. Patient is now on Solumedrol 40mg Q8H. - Theophylline 400mg daily. Repeat Theophylline level: 9.3. Repeat Theophylline tomorrow in the am. - Oxygen: Patient on HFNC 20L 35%. - Continue Physical therapy when tolerated. - Percocet for pain. - Continue Chest physiotherapy. (2) Acute exacerbation of CHF (congestive heart failure) Assessment & Plan: Continue current management: Diuretics prn - Metoprolol changed to Diltiazem 30mg po QID (3) C. difficile colitis Assessment & Plan: - Resolved. (4) Hyperthyroidism Assessment & Plan: - T4: 1.69; Free T4: 0.18; TSH: 0.59. - Continue current Endocrinology recommendation: Methimazole 10mg po daily. (5) HTN (hypertension) Assessment & Plan: Continue current management: Diltiazem and Losartan. (6) Hx of breast cancer Assessment & Plan: Continue current management: Arimidex. (7) DVT prophylaxis Assessment & Plan: RLE U/S negative for DVT. Continue Lovenox. <Georgia Camilo - Last Filed: 11/30/17 17:36> Objective - Vital Signs/Intake and Output Vital Signs (last 24 hours): Temp Pulse Resp BP Pulse Ox 97.6 F 115 H 22 116/68 96 11/30/17 16:15 11/30/17 17:03 11/30/17 17:03 11/30/17 17:03 11/30/17 17:03 - Medications Medications: Current Medications Acetaminophen (Tylenol 325mg Tab) 650 mg PO Q6 PRN PRN Reason: Pain, Mild (1-3)/headache Last Admin: 11/29/17 02:58 Dose: 650 mg Anastrozole (Arimidex 1 Mg Tab) 1 mg PO DAILY [facility] Last Admin: 11/30/17 09:33 Dose: 1 mg Aspirin (Ecotrin) 325 mg PO DAILY [facility] Last Admin: 11/30/17 09:28 Dose: 325 mg Atorvastatin Calcium (Lipitor) 40 mg PO DAILY [facility] Last Admin: 11/30/17 09:30 Dose: 40 mg Dextrose (Dextrose 50% Inj) 0 ml IV STAT PRN; Protocol PRN Reason: Hypoglycemia Protocol Dextrose (Glutose 15) 0 gm PO ONCE PRN; Protocol PRN Reason: Hypoglycemia Protocol Dicyclomine HCl (Bentyl) 10 mg PO QID PRN PRN Reason: Pain, moderate (4-7) Last Admin: 11/16/17 08:39 Dose: 10 mg Diltiazem HCl (Cardizem) 30 mg PO QID [facility] Last Admin: 11/30/17 17:03 Dose: 30 mg Enoxaparin Sodium (Lovenox) 40 mg SC DAILY [facility] PRN Reason: Protocol Last Admin: 11/30/17 09:28 Dose: 40 mg Gabapentin (Neurontin) 600 mg PO Q8 [facility] Last Admin: 11/30/17 17:02 Dose: 600 mg Glucagon (Glucagen Diagnostic Kit) 0 mg IM STAT PRN; Protocol PRN Reason: Hypoglycemia Protocol Guaifenesin (Mucinex La) 600 mg PO Q12 [facility] Last Admin: 11/30/17 09:28 Dose: 600 mg Guaifenesin (Robitussin) 100 mg PO Q6 PRN PRN Reason: Cough Last Admin: 11/21/17 21:55 Dose: 100 mg Insulin Human Regular (Humulin R) 0 units SC ACHS [facility] PRN Reason: Protocol Last Admin: 11/30/17 17:06 Dose: Not Given Ipratropium [place] (Atrovent) 0.5 mg IH RQID [facility] Last Admin: 11/30/17 15:12 Dose: 0.5 mg Levalbuterol HCl (Xopenex) 0.63 mg INH RQ4 PRN PRN Reason: Shortness of Breath Last Admin: 11/30/17 00:24 Dose: 0.63 mg Lidocaine (Lidoderm) 1 ea TD DAILY PRN PRN Reason: Pain, moderate (4-7) Last Admin: 11/29/17 09:38 Dose: 1 ea Losartan Potassium (Cozaar) 50 mg PO DAILY [facility] Last Admin: 11/30/17 09:30 Dose: 50 mg Methimazole (Tapazole) 10 mg PO DAILY [facility] Last Admin: 11/30/17 09:29 Dose: 10 mg Methylprednisolone (Solu-Medrol) 40 mg IVP Q8H [facility] Last Admin: 11/30/17 12:39 Dose: 40 mg Mirtazapine (Remeron) 15 mg PO HS [facility] Last Admin: 11/29/17 22:08 Dose: 15 mg Ondansetron HCl (Zofran Inj) 4 mg IVP Q4 PRN PRN Reason: Nausea/Vomiting Last Admin: 11/13/17 19:35 Dose: 4 mg Pantoprazole Sodium (Protonix Ec Tab) 40 mg PO DAILY [facility] Last Admin: 11/30/17 09:26 Dose: 40 mg Theophylline (Uniphyl) 400 mg PO DAILY [facility] Last Admin: 11/30/17 09:29 Dose: 400 mg Zolpidem Tartrate (Ambien) 5 mg PO HS PRN PRN Reason: Insomnia Last Admin: 11/29/17 23:03 Dose: 5 mg - Labs Labs: 11/29/17 05:00 11/29/17 05:00 PT 11.1 Seconds (9.8-13.1) 11/10/17 17:32 INR 1.0 (0.9-1.2) 11/10/17 17:32 APTT 20.7 Seconds (25.6-37.1) L 11/10/17 17:32 Attending/Attestation - Attestation I have personally seen and examined this patient.: Yes I have fully participated in the care of the patient.: Yes I have reviewed all pertinent clinical information, including history, physical exam and plan: Yes
[2017-11-30] MEDS: Pantoprazole 40 mg EC Tab PO SCH (09:26)
[2017-11-30] MEDS: guaiFENesin 600 mg ER Tab PO SCH ×2 (09:28→22:00)
[2017-11-30] MEDS: Aspirin 325 mg EC Tablets PO SCH (09:28)
[2017-11-30] MEDS: Enoxaparin 40 mg Syringe SC SCH (09:28)
[2017-11-30] MEDS: THEOPHYLLINE 400 MG T24(UNIPHYL) PO SCH (09:29)
[2017-11-30] MEDS ORDERED: Oxycodone/Acetaminophen 5/325 mg Tab PO ONE (10:00)
--- NOTE | 2017-11-30 11:51 | US ---
Date of service: 11/29/2017 PROCEDURE: Right lower extremity venous duplex Doppler. HISTORY: R/O DVT COMPARISON: None available. TECHNIQUE: Common femoral, superficial femoral, popliteal and posterior tibial veins were evaluated. Flow was assessed with color Doppler, compressibility, assessment of phasic flow and augmentation response. FINDINGS: COMMON FEMORAL VEIN: Unremarkable. SUPERFICIAL FEMORAL VEIN: Unremarkable. POPLITEAL VEIN: Unremarkable. POSTERIOR TIBIAL VEIN: Unremarkable. OTHER FINDINGS: None. IMPRESSION: No evidence of deep venous thrombosis in the right lower extremity.
[2017-11-30 15:57] LABS: TSI <89 % baseline (<140)
--- NOTE | 2017-11-30 19:57 | PN ---
DATE: 11/30/2017 ENDO FOLLOWUP NOTE LOCATION: In room 408. SUBJECTIVE: This is a 67-year-old female with recent admission for congestive heart failure and preceding COPD exacerbation, currently on IV steroid therapy, and is now being followed closely for metabolic management. She also had overt hyperthyroidism on admission and has since then been placed on a modified dosing of her Tapazole medications as given. However, she has developed supervening hypoalbuminemia with low normal thyroxine values as expected and also has responded biochemically very well with the higher dosing of the methimazole medication as given with normalization of her TSH values as noted. Her glycemic levels are fluctuating as expected with the intercurrent steroid therapy and the glucose values have ranged from 229 to 273 mg/dL. LABORATORY DATA: Her latest chemistries showed a BUN of 24, sodium 135, potassium 4.2, chloride 94, CO2 of 31, glucose 287, and creatinine 0.5. Her thyroid studies showed a T4 of 1.69 with a free T4 of 0.18 and a TSH of 0.59. ASSESSMENT AND PLAN: So at this time, we will continue the low-dose correction scale using regular insulin as given and if hyperglycemic levels persists, we will consider the addition of basal insulin as indicated. In the meantime, we will also lower the methimazole given initially as b.i.d. down to 10 mg once daily in the morning as ordered. We will obtain serial thyroid studies and adjust her dose regimen accordingly. We will also obtain serial chemistries and supplement accordingly as needed. We will follow. Polly Vu MD
[2017-12-01] MEDS: Levalbuterol 0.63 MG/3 ML Inhal Soln UD INH PRN ×2 (00:15→15:24)
[2017-12-01] MEDS: MethylPREDNISolone 40 mg Vial IVP SCH ×3 (04:45→21:43)
[2017-12-01 06:18] LABS: HEMOGLOBIN 11.4 g/dL (12.0-16.0); MEAN CELL VOLUME 89.3 fl (81.0-99.0); MEAN CORPUSCULAR HEMOGLOBIN 28.7 pg (27.0-31.0); MEAN CORPUSCULAR HGB CONC 32.1 g/dL (33.0-37.0); RBC 3.97 Mil/uL (3.80-5.20); RED CELL DISTRIBUTION WIDTH 19.5 % (11.5-14.5); WHITE BLOOD COUNT 11.1 K/uL (4.8-10.8)
[2017-12-01 06:49] LABS: ALB/GLOB RATIO 1.3 (1.0-2.1); ALBUMIN 2.8 g/dL (3.5-5.0); ALT/SGPT 36 U/L (9-52); AST/SGOT 23 U/L (14-36); BLOOD UREA NITROGEN 31 mg/dl (7-17); CALCIUM 8.9 mg/dL (8.4-10.2); GFR NON-AFRICAN AMERICAN > 60
[2017-12-01] MEDS: Ipratropium 0.02% Inhal Soln (0.5 mg/2.5 ml) UD IH SCH (07:28)
--- NOTE | 2017-12-01 09:48 | CP.PCM.PN ---
Subjective - Date & Time of Evaluation Date of Evaluation: 12/01/17 Time of Evaluation: 09:44 - Subjective Subjective: There is some slight improvement when seen this morning. Heart rate is still in the 90's and respirations are 20 BPM, but she is less dyspneic with conversation. Her cough is still congested, but it sounds more loose, and she can get the mucous into her throat and swallow it. Her sugars are up to 300+ with the extra steroid dosing. On exam there is indeed better air movement and no wheezes are heard. Of course there are sonorous rhonchi, and these are only partially cleared by her coughing. Her CBC remains stable, her BUN has risen slightly because of the steroids. There was some continued pain in the ankles, b ut less intense. No DVT was found on the venous duplex. No cyanosis or dependant edema. Will begin to reduce the steroid dose gradually, down to 30MG IVPG Q8H today. Maintain accucheck coverage. Maximiliano level is 12 today, will stay with 400MG daily. Will start LAMA + LABA/ICS today. Switch to Cardizem CD 120 daily this morning. Objective - Vital Signs/Intake and Output Vital Signs (last 24 hours): Temp Pulse Resp BP Pulse Ox 97.7 F 96 H 20 152/72 H 92 L 12/01/17 08:44 12/01/17 08:44 12/01/17 08:44 12/01/17 08:44 12/01/17 08:44 Intake and Output: 11/30/17 12/01/17 23:59 11:59 Intake Total 860 Output Total 650 Balance 210 - Medications Medications: Current Medications Acetaminophen (Tylenol 325mg Tab) 650 mg PO Q6 PRN PRN Reason: Pain, Mild (1-3)/headache Last Admin: 11/30/17 22:02 Dose: 650 mg Anastrozole (Arimidex 1 Mg Tab) 1 mg PO DAILY [facility] Last Admin: 11/30/17 09:33 Dose: 1 mg Aspirin (Ecotrin) 325 mg PO DAILY [facility] Last Admin: 11/30/17 09:28 Dose: 325 mg Atorvastatin Calcium (Lipitor) 40 mg PO DAILY [facility] Last Admin: 11/30/17 09:30 Dose: 40 mg Dextrose (Dextrose 50% Inj) 0 ml IV STAT PRN; Protocol PRN Reason: Hypoglycemia Protocol Dextrose (Glutose 15) 0 gm PO ONCE PRN; Protocol PRN Reason: Hypoglycemia Protocol Dicyclomine HCl (Bentyl) 10 mg PO QID PRN PRN Reason: Pain, moderate (4-7) Last Admin: 11/16/17 08:39 Dose: 10 mg Diltiazem HCl (Cardizem) 30 mg PO QID [facility] Last Admin: 11/30/17 21:59 Dose: 30 mg Enoxaparin Sodium (Lovenox) 40 mg SC DAILY [facility] PRN Reason: Protocol Last Admin: 11/30/17 09:28 Dose: 40 mg Gabapentin (Neurontin) 600 mg PO Q8 [facility] Last Admin: 12/01/17 00:36 Dose: 600 mg Glucagon (Glucagen Diagnostic Kit) 0 mg IM STAT PRN; Protocol PRN Reason: Hypoglycemia Protocol Guaifenesin (Mucinex La) 600 mg PO Q12 [facility] Last Admin: 11/30/17 22:00 Dose: 600 mg Guaifenesin (Robitussin) 100 mg PO Q6 PRN PRN Reason: Cough Last Admin: 11/21/17 21:55 Dose: 100 mg Insulin Human Regular (Humulin R) 0 units SC ACHS [facility] PRN Reason: Protocol Last Admin: 11/30/17 22:00 Dose: Not Given Ipratropium [place] (Atrovent) 0.5 mg IH RQID [facility] Last Admin: 12/01/17 07:28 Dose: 0.5 mg Levalbuterol HCl (Xopenex) 0.63 mg INH RQ4 PRN PRN Reason: Shortness of Breath Last Admin: 12/01/17 00:15 Dose: 0.63 mg Lidocaine (Lidoderm) 1 ea TD DAILY PRN PRN Reason: Pain, moderate (4-7) Last Admin: 11/29/17 09:38 Dose: 1 ea Losartan Potassium (Cozaar) 50 mg PO DAILY [facility] Last Admin: 11/30/17 09:30 Dose: 50 mg Methimazole (Tapazole) 10 mg PO DAILY [facility] Last Admin: 11/30/17 09:29 Dose: 10 mg Methylprednisolone (Solu-Medrol) 40 mg IVP Q8H [facility] Last Admin: 12/01/17 04:45 Dose: 40 mg Mirtazapine (Remeron) 15 mg PO HS [facility] Last Admin: 11/30/17 22:00 Dose: 15 mg Ondansetron HCl (Zofran Inj) 4 mg IVP Q4 PRN PRN Reason: Nausea/Vomiting Last Admin: 11/13/17 19:35 Dose: 4 mg Oxycodone/Acetaminophen (Percocet 5/325 Mg Tab) 1 tab PO Q6 PRN PRN Reason: Pain, severe (8-10) Stop: 12/04/17 06:25 Pantoprazole Sodium (Protonix Ec Tab) 40 mg PO DAILY [facility] Last Admin: 11/30/17 09:26 Dose: 40 mg Theophylline (Uniphyl) 400 mg PO DAILY [facility] Last Admin: 11/30/17 09:29 Dose: 400 mg Zolpidem Tartrate (Ambien) 5 mg PO HS PRN PRN Reason: Insomnia Last Admin: 11/30/17 21:58 Dose: 5 mg - Labs Labs: 12/01/17 05:30 12/01/17 05:30 PT 11.1 Seconds (9.8-13.1) 11/10/17 17:32 INR 1.0 (0.9-1.2) 11/10/17 17:32 APTT 20.7 Seconds (25.6-37.1) L 11/10/17 17:32
[2017-12-01] MEDS: diltiaZEM 120 mg/24 Hours CD Cap PO SCH (10:00)
[2017-12-01] MEDS: THEOPHYLLINE 400 MG T24(UNIPHYL) PO SCH (10:00)
[2017-12-01] MEDS: Enoxaparin 40 mg Syringe SC SCH (10:00)
[2017-12-01] MEDS: Aspirin 325 mg EC Tablets PO SCH (10:00)
[2017-12-01] MEDS: Pantoprazole 40 mg EC Tab PO SCH (10:00)
[2017-12-01] MEDS: guaiFENesin 600 mg ER Tab PO SCH ×2 (10:00→21:42)
[2017-12-01] MEDS: Tiotropium 18 mcg Cap For Inhalation INH SCH (10:30)
--- NOTE | 2017-12-01 11:18 | CP.PCM.PN ---
<Linda Epps - Last Filed: 12/01/17 14:44> Subjective - Date & Time of Evaluation Date of Evaluation: 12/01/17 Time of Evaluation: 10:00 - Subjective Subjective: Patient seen and examined at bedside with Dr. Nieves. She is resting in her bed and still dyspneic when she speaks. She reports that she had chest discomfort again last night and was given Tylenol. She reports that she is not experiencing this discomfort currently and state that she is not short of breath at the moment. Last bowel movement was this morning and reported as her usual pasty bowel movement. Denies nausea, vomiting, abdominal pain, headache, and diarrhea. L-tach was discussed with the patient as she is a good candidate, she refuses to go and wants to be discharged home. Objective - Vital Signs/Intake and Output Vital Signs (last 24 hours): Temp Pulse Resp BP Pulse Ox 97.7 F 96 H 20 152/72 H 92 L 12/01/17 08:44 12/01/17 10:00 12/01/17 08:44 12/01/17 10:00 12/01/17 08:44 Intake and Output: 12/01/17 12/01/17 06:59 18:59 Intake Total 860 Output Total 650 Balance 210 - Medications Medications: Current Medications Acetaminophen (Tylenol 325mg Tab) 650 mg PO Q6 PRN PRN Reason: Pain, Mild (1-3)/headache Last Admin: 11/30/17 22:02 Dose: 650 mg Anastrozole (Arimidex 1 Mg Tab) 1 mg PO DAILY [facility] Last Admin: 12/01/17 10:00 Dose: 1 mg Aspirin (Ecotrin) 325 mg PO DAILY [facility] Last Admin: 12/01/17 10:00 Dose: 325 mg Atorvastatin Calcium (Lipitor) 40 mg PO DAILY [facility] Last Admin: 12/01/17 10:00 Dose: 40 mg Dextrose (Dextrose 50% Inj) 0 ml IV STAT PRN; Protocol PRN Reason: Hypoglycemia Protocol Dextrose (Glutose 15) 0 gm PO ONCE PRN; Protocol PRN Reason: Hypoglycemia Protocol Dicyclomine HCl (Bentyl) 10 mg PO QID PRN PRN Reason: Pain, moderate (4-7) Last Admin: 11/16/17 08:39 Dose: 10 mg Diltiazem HCl (Cardizem Cd) 120 mg PO DAILY [facility] Last Admin: 12/01/17 10:00 Dose: 120 mg Enoxaparin Sodium (Lovenox) 40 mg SC DAILY [facility] PRN Reason: Protocol Last Admin: 12/01/17 10:00 Dose: 40 mg Gabapentin (Neurontin) 600 mg PO Q8 [facility] Last Admin: 12/01/17 10:00 Dose: 600 mg Glucagon (Glucagen Diagnostic Kit) 0 mg IM STAT PRN; Protocol PRN Reason: Hypoglycemia Protocol Guaifenesin (Mucinex La) 600 mg PO Q12 [facility] Last Admin: 12/01/17 10:00 Dose: 600 mg Guaifenesin (Robitussin) 100 mg PO Q6 PRN PRN Reason: Cough Last Admin: 11/21/17 21:55 Dose: 100 mg Insulin Human Regular (Humulin R) 0 units SC ACHS [facility] PRN Reason: Protocol Last Admin: 11/30/17 22:00 Dose: Not Given Levalbuterol HCl (Xopenex) 0.63 mg INH RQ4 PRN PRN Reason: Shortness of Breath Last Admin: 12/01/17 00:15 Dose: 0.63 mg Levalbuterol HCl (Xopenex) 0.63 mg INH RQ8 [facility] Lidocaine (Lidoderm) 1 ea TD DAILY PRN PRN Reason: Pain, moderate (4-7) Last Admin: 11/29/17 09:38 Dose: 1 ea Losartan Potassium (Cozaar) 50 mg PO DAILY [facility] Last Admin: 12/01/17 10:00 Dose: 50 mg Methimazole (Tapazole) 10 mg PO DAILY [facility] Last Admin: 12/01/17 10:00 Dose: 10 mg Methylprednisolone (Solu-Medrol) 40 mg IVP Q8H [facility] Last Admin: 12/01/17 04:45 Dose: 40 mg Mirtazapine (Remeron) 15 mg PO HS [facility] Last Admin: 11/30/17 22:00 Dose: 15 mg Ondansetron HCl (Zofran Inj) 4 mg IVP Q4 PRN PRN Reason: Nausea/Vomiting Last Admin: 11/13/17 19:35 Dose: 4 mg Oxycodone/Acetaminophen (Percocet 5/325 Mg Tab) 1 tab PO Q6 PRN PRN Reason: Pain, severe (8-10) Stop: 12/04/17 06:25 Pantoprazole Sodium (Protonix Ec Tab) 40 mg PO DAILY [facility] Last Admin: 12/01/17 10:00 Dose: 40 mg Theophylline (Uniphyl) 400 mg PO DAILY [facility] Last Admin: 12/01/17 10:00 Dose: 400 mg Tiotropium [place] (Spiriva) 18 mcg INH DAILY [facility] Last Admin: 12/01/17 10:30 Dose: 18 mcg Zolpidem Tartrate (Ambien) 5 mg PO HS PRN PRN Reason: Insomnia Last Admin: 11/30/17 21:58 Dose: 5 mg - Labs Labs: 12/01/17 05:30 12/01/17 05:30 PT 11.1 Seconds (9.8-13.1) 11/10/17 17:32 INR 1.0 (0.9-1.2) 11/10/17 17:32 APTT 20.7 Seconds (25.6-37.1) L 11/10/17 17:32 - Constitutional Appears: Non-toxic, No Acute Distress, Chronically Ill - Head Exam Head Exam: NORMAL INSPECTION - Eye Exam Eye Exam: Normal appearance - ENT Exam ENT Exam: Mucous Membranes Moist - Neck Exam Neck Exam: Normal Inspection (+ tracheostomy scar present at midline. ). absent : Lymphadenopathy, Tenderness, Thyromegaly - Respiratory Exam Respiratory Exam: Decreased Breath Sounds, Rhonchi, NORMAL BREATHING PATTERN. absent: Chest Wall Tenderness, Prolonged Expiratory Phase, Rales, Wheezes, Respiratory Distress, Stridor - Cardiovascular Exam Cardiovascular Exam: Tachycardia, REGULAR RHYTHM, +S1, +S2. absent: Clicks, Diastolic murmur, Gallop, RRR, Rubs, Murmur - GI/Abdominal Exam GI & Abdominal Exam: Distended, Soft, Normal Bowel Sounds. absent: Guarding, Tenderness, Mass, Organomegaly, Pulsatile Mass, Rebound - Extremities Exam Extremities Exam: Normal Inspection (+ chronic ecchymosis bilateral extremities. ; + chronic RUE lymphedema. ) - Back Exam Back Exam: NORMAL INSPECTION. absent: CVA tenderness (L), CVA tenderness (R), paraspinal tenderness, rash noted, tenderness, vertebral tenderness - Neurological Exam Neurological Exam: Alert, Awake, Oriented x3 - Psychiatric Exam Psychiatric exam: Normal Affect, Normal Mood - Skin Skin Exam: Dry, Intact, Normal Color, Warm Assessment and Plan (1) Acute exacerbation of chronic obstructive pulmonary disease (COPD) Status: Acute (2) Acute exacerbation of CHF (congestive heart failure) Status: Acute (3) C. difficile colitis Status: Acute (4) Hyperthyroidism Status: Chronic (5) HTN (hypertension) Status: Chronic (6) Hx of breast cancer Status: Acute (7) DVT prophylaxis Status: Acute - Assessment and Plan (Free Text) Assessment: 67 yo f with medical history including COPD, CHF, hypothyroidism, history of breast Cancer s/p mastectomy, chronic RUE lymphedema was brought into the ED because of dyspnea. Patient was then found to be in respiratory failure secondary to COPD and CHF exacerbation. Patient was admitted to ICU where she was on bipap and IV steroids and diuretics. She is no longer in the ICU. Patient is currently on HNFC 20L 35%. Discussed with patient about L-TACH transfer but she states she is not interested and she just wants to go home. No acute changes, awaiting improvement with high flow. Physical therapy following. Plan: (1) Acute exacerbation of chronic obstructive pulmonary disease (COPD) Assessment & Plan: Continue current management: - As per Dr. Benz's recommendations: continue Xopenex Q8H and a separate dose prn. Possibly start LAMA/ ICS tomorrow 12/01/17. - decrease steroids to Solumedrol 30mg Q8H. - Theophylline 400mg daily. Repeat Theophylline level: 12. - Oxygen: Patient on HFNC 20L 35%. - Continue Physical therapy when tolerated. - Percocet for pain. - Continue Chest physiotherapy. (2) Hyperglycemia secondary to steroids - Endocrinology recommendation: Continue low dose correction scale using regular insulin for hyperglycemic levels secondary to steroid use. - Insulin: added Levemir 10 U HS. (2) Acute exacerbation of CHF (congestive heart failure) Assessment & Plan: Continue current management: Diuretics prn - Diltiazem 30 QID changed to Cardizem 120mg po Daily. (3) C. difficile colitis Assessment & Plan: - Resolved. (4) Hyperthyroidism Assessment & Plan: - T4: 1.69; Free T4: 0.18; TSH: 0.59. - Continue current Endocrinology recommendation: Methimazole 10mg po daily. (5) HTN (hypertension) Assessment & Plan: Continue current management: Diltiazem and Losartan. (6) Hx of breast cancer Assessment & Plan: Continue current management: Arimidex. (7) DVT prophylaxis Assessment & Plan: RLE U/S negative for DVT. Continue Lovenox. <Roque Nieves - Last Filed: 12/01/17 16:20> Objective - Vital Signs/Intake and Output Vital Signs (last 24 hours): Temp Pulse Resp BP Pulse Ox 97.1 F L 107 H 20 103/77 92 L 12/01/17 15:46 12/01/17 15:46 12/01/17 15:46 12/01/17 15:46 12/01/17 15:46 Intake and Output: 12/01/17 12/01/17 06:59 18:59 Intake Total 860 Output Total 650 Balance 210 - Medications Medications: Current Medications Acetaminophen (Tylenol 325mg Tab) 650 mg PO Q6 PRN PRN Reason: Pain, Mild (1-3)/headache Last Admin: 11/30/17 22:02 Dose: 650 mg Anastrozole (Arimidex 1 Mg Tab) 1 mg PO DAILY [facility] Last Admin: 12/01/17 10:00 Dose: 1 mg Aspirin (Ecotrin) 325 mg PO DAILY [facility] Last Admin: 12/01/17 10:00 Dose: 325 mg Atorvastatin Calcium (Lipitor) 40 mg PO DAILY [facility] Last Admin: 12/01/17 10:00 Dose: 40 mg Dextrose (Dextrose 50% Inj) 0 ml IV STAT PRN; Protocol PRN Reason: Hypoglycemia Protocol Dextrose (Glutose 15) 0 gm PO ONCE PRN; Protocol PRN Reason: Hypoglycemia Protocol Dicyclomine HCl (Bentyl) 10 mg PO QID PRN PRN Reason: Pain, moderate (4-7) Last Admin: 11/16/17 08:39 Dose: 10 mg Diltiazem HCl (Cardizem Cd) 120 mg PO DAILY [facility] Last Admin: 12/01/17 10:00 Dose: 120 mg Enoxaparin Sodium (Lovenox) 40 mg SC DAILY [facility] PRN Reason: Protocol Last Admin: 12/01/17 10:00 Dose: 40 mg Gabapentin (Neurontin) 600 mg PO Q8 [facility] Last Admin: 12/01/17 10:00 Dose: 600 mg Glucagon (Glucagen Diagnostic Kit) 0 mg IM STAT PRN; Protocol PRN Reason: Hypoglycemia Protocol Guaifenesin (Mucinex La) 600 mg PO Q12 [facility] Last Admin: 12/01/17 10:00 Dose: 600 mg Guaifenesin (Robitussin) 100 mg PO Q6 PRN PRN Reason: Cough Last Admin: 11/21/17 21:55 Dose: 100 mg Insulin Detemir (Levemir) 10 units SC HS [facility] Insulin Human Regular (Humulin R) 0 units SC ACHS [facility] PRN Reason: Protocol Last Admin: 11/30/17 22:00 Dose: Not Given Levalbuterol HCl (Xopenex) 0.63 mg INH RQ4 PRN PRN Reason: Shortness of Breath Last Admin: 12/01/17 15:24 Dose: 0.63 mg Levalbuterol HCl (Xopenex) 0.63 mg INH RQ8 [facility] Last Admin: 12/01/17 15:01 Dose: 0.63 mg Lidocaine (Lidoderm) 1 ea TD DAILY PRN PRN Reason: Pain, moderate (4-7) Last Admin: 11/29/17 09:38 Dose: 1 ea Losartan Potassium (Cozaar) 50 mg PO DAILY [facility] Last Admin: 12/01/17 10:00 Dose: 50 mg Methimazole (Tapazole) 10 mg PO DAILY [facility] Last Admin: 12/01/17 10:00 Dose: 10 mg Methylprednisolone (Solu-Medrol) 30 mg IVP Q8H [facility] Mirtazapine (Remeron) 15 mg PO HS [facility] Last Admin: 11/30/17 22:00 Dose: 15 mg Ondansetron HCl (Zofran Inj) 4 mg IVP Q4 PRN PRN Reason: Nausea/Vomiting Last Admin: 11/13/17 19:35 Dose: 4 mg Oxycodone/Acetaminophen (Percocet 5/325 Mg Tab) 1 tab PO Q6 PRN PRN Reason: Pain, severe (8-10) Stop: 12/04/17 06:25 Pantoprazole Sodium (Protonix Ec Tab) 40 mg PO DAILY [facility] Last Admin: 12/01/17 10:00 Dose: 40 mg Theophylline (Uniphyl) 400 mg PO DAILY [facility] Last Admin: 12/01/17 10:00 Dose: 400 mg Tiotropium [place] (Spiriva) 18 mcg INH DAILY [facility] Last Admin: 12/01/17 10:30 Dose: 18 mcg Zolpidem Tartrate (Ambien) 5 mg PO HS PRN PRN Reason: Insomnia Last Admin: 11/30/17 21:58 Dose: 5 mg - Labs Labs: 12/01/17 05:30 12/01/17 05:30 PT 11.1 Seconds (9.8-13.1) 11/10/17 17:32 INR 1.0 (0.9-1.2) 11/10/17 17:32 APTT 20.7 Seconds (25.6-37.1) L 11/10/17 17:32
[2017-12-01] MEDS: Insulin Regular 100 units/ml SC SCH ×3 (12:00→22:30)
[2017-12-01] MEDS: Levalbuterol 0.63 MG/3 ML Inhal Soln UD INH SCH (15:01)
--- NOTE | 2017-12-01 16:27 | PN ---
DATE: 12/01/2017 ENDO FOLLOWUP NOTE LOCATION: In room 408. SUBJECTIVE: This is a 67-year-old female presenting here with acute exacerbation of COPD, currently on IV Solu-Medrol at 40 mg every 8 hours with supervening hyperglycemic accelerations as noted thereof. Her glucose values have ranged overnight from 215 to 315 mg/dL. LABORATORY DATA: Her latest chemistry showed a BUN of 31, sodium 136, potassium 3.8, chloride 98, CO2 of 30, glucose 301, and creatinine 0.5. Her latest thyroid study showed a T4 of 1.69 with a TSH of 0.59. ASSESSMENT AND PLAN: So at this time, we have actually lowered her Tapazole to 10 mg once daily in the morning as ordered, and we will obtain serial and repeat thyroid studies tomorrow, and if her low normal thyroxine levels persist, then we will lower once again her Tapazole medications as indicated. This is a 67_year_old female with recent overt hyperthyroidism and underwent dose modifications with remarkable response thereof. She has been admitted here for acute exacerbation of chronic obstructive pulmonary disease with . Polly Vu MD JOHNNY
[2017-12-01] MEDS: Oxycodone/Acetaminophen 5/325 mg Tab PO PRN (21:49)
[2017-12-01] MEDS: Insulin Detemir 100 Units/ml Inj SC SCH (22:00)
[2017-12-01] MEDS: guaiFENesin 100 mg/5 ml Syrup UD PO PRN (23:45)
[2017-12-02] MEDS: Levalbuterol 0.63 MG/3 ML Inhal Soln UD INH SCH ×4 (00:13→23:56)
[2017-12-02 05:26] LABS: ALB/GLOB RATIO 1.3 (1.0-2.1); ALT/SGPT 39 U/L (9-52); AST/SGOT 21 U/L (14-36); BLOOD UREA NITROGEN 31 mg/dl (7-17); CALCIUM 8.8 mg/dL (8.4-10.2); GFR NON-AFRICAN AMERICAN > 60
[2017-12-02 05:40] LABS: T4 1.52 ug/dl (5.5-11.0)
[2017-12-02] MEDS: guaiFENesin 100 mg/5 ml Syrup UD PO PRN ×2 (06:31→13:16)
[2017-12-02] MEDS: MethylPREDNISolone 40 mg Vial IVP SCH ×3 (06:32→22:07)
[2017-12-02] MEDS: Insulin Regular 100 units/ml SC SCH ×4 (06:32→22:13)
--- NOTE | 2017-12-02 09:04 | CP.PCM.PN ---
Subjective - Date & Time of Evaluation Date of Evaluation: 12/02/17 Time of Evaluation: 08:30 - Subjective Subjective: Patient seen and examined with Dr. Nieves. She is resting comfortably on her bed. She reports she had chest tightness overnight with coughing but was relieved with Percocet. She states that her leg pain has resolved and its more her chronic knee pain that has been bothering her, again relieved with Percocet. She was able to tolerate some physical therapy yesterday which included walking to the window and back to the bed twice. Today she hopes to get OOBTC. She states she still feels bloated but has no abdominal pain and continues to have her normal pasty stool. She currently denies chest pain, shortness of breath, headaches, nausea, vomiting or diarrhea. Objective - Vital Signs/Intake and Output Vital Signs (last 24 hours): Temp Pulse Resp BP Pulse Ox 98 F 108 H 18 156/83 H 97 12/02/17 08:02 12/02/17 08:02 12/02/17 08:02 12/02/17 08:02 12/02/17 08:02 - Medications Medications: Current Medications Acetaminophen (Tylenol 325mg Tab) 650 mg PO Q6 PRN PRN Reason: Pain, Mild (1-3)/headache Last Admin: 11/30/17 22:02 Dose: 650 mg Anastrozole (Arimidex 1 Mg Tab) 1 mg PO DAILY [facility] Last Admin: 12/01/17 10:00 Dose: 1 mg Aspirin (Ecotrin) 325 mg PO DAILY [facility] Last Admin: 12/01/17 10:00 Dose: 325 mg Atorvastatin Calcium (Lipitor) 40 mg PO DAILY [facility] Last Admin: 12/01/17 10:00 Dose: 40 mg Dextrose (Dextrose 50% Inj) 0 ml IV STAT PRN; Protocol PRN Reason: Hypoglycemia Protocol Dextrose (Glutose 15) 0 gm PO ONCE PRN; Protocol PRN Reason: Hypoglycemia Protocol Dicyclomine HCl (Bentyl) 10 mg PO QID PRN PRN Reason: Pain, moderate (4-7) Last Admin: 11/16/17 08:39 Dose: 10 mg Diltiazem HCl (Cardizem Cd) 120 mg PO DAILY [facility] Last Admin: 12/01/17 10:00 Dose: 120 mg Enoxaparin Sodium (Lovenox) 40 mg SC DAILY [facility] PRN Reason: Protocol Last Admin: 12/01/17 10:00 Dose: 40 mg Gabapentin (Neurontin) 600 mg PO Q8 [facility] Last Admin: 12/02/17 01:33 Dose: 600 mg Glucagon (Glucagen Diagnostic Kit) 0 mg IM STAT PRN; Protocol PRN Reason: Hypoglycemia Protocol Guaifenesin (Mucinex La) 600 mg PO Q12 [facility] Last Admin: 12/01/17 21:42 Dose: 600 mg Guaifenesin (Robitussin) 100 mg PO Q6 PRN PRN Reason: Cough Last Admin: 12/02/17 06:31 Dose: 100 mg Insulin Detemir (Levemir) 10 units SC HS [facility] Last Admin: 12/01/17 22:00 Dose: 10 units Insulin Human Regular (Humulin R) 0 units SC ACHS [facility] PRN Reason: Protocol Last Admin: 12/02/17 06:32 Dose: 4 units Levalbuterol HCl (Xopenex) 0.63 mg INH RQ4 PRN PRN Reason: Shortness of Breath Last Admin: 12/01/17 15:24 Dose: 0.63 mg Levalbuterol HCl (Xopenex) 0.63 mg INH RQ8 [facility] Last Admin: 12/02/17 07:55 Dose: 0.63 mg Lidocaine (Lidoderm) 1 ea TD DAILY PRN PRN Reason: Pain, moderate (4-7) Last Admin: 11/29/17 09:38 Dose: 1 ea Losartan Potassium (Cozaar) 50 mg PO DAILY [facility] Last Admin: 12/01/17 10:00 Dose: 50 mg Methimazole (Tapazole) 10 mg PO DAILY [facility] Last Admin: 12/01/17 10:00 Dose: 10 mg Methylprednisolone (Solu-Medrol) 30 mg IVP Q8H [facility] Last Admin: 12/02/17 06:32 Dose: 30 mg Mirtazapine (Remeron) 15 mg PO HS [facility] Last Admin: 12/01/17 21:42 Dose: 15 mg Ondansetron HCl (Zofran Inj) 4 mg IVP Q4 PRN PRN Reason: Nausea/Vomiting Last Admin: 11/13/17 19:35 Dose: 4 mg Oxycodone/Acetaminophen (Percocet 5/325 Mg Tab) 1 tab PO Q6 PRN PRN Reason: Pain, severe (8-10) Stop: 12/04/17 06:25 Last Admin: 12/01/17 21:49 Dose: 1 tab Pantoprazole Sodium (Protonix Ec Tab) 40 mg PO DAILY [facility] Last Admin: 12/01/17 10:00 Dose: 40 mg Theophylline (Uniphyl) 400 mg PO DAILY [facility] Last Admin: 12/01/17 10:00 Dose: 400 mg Tiotropium [place] (Spiriva) 18 mcg INH DAILY [facility] Last Admin: 12/01/17 10:30 Dose: 18 mcg Zolpidem Tartrate (Ambien) 5 mg PO HS PRN PRN Reason: Insomnia Last Admin: 12/01/17 21:49 Dose: 5 mg - Labs Labs: 12/01/17 05:30 12/02/17 04:20 PT 11.1 Seconds (9.8-13.1) 11/10/17 17:32 INR 1.0 (0.9-1.2) 11/10/17 17:32 APTT 20.7 Seconds (25.6-37.1) L 11/10/17 17:32 - Constitutional Appears: Well, Non-toxic, No Acute Distress, Chronically Ill - Head Exam Head Exam: NORMAL INSPECTION - Eye Exam Eye Exam: Normal appearance - ENT Exam ENT Exam: Mucous Membranes Moist, Normal Oropharynx - Neck Exam Neck Exam: Normal Inspection (+ tracheostomy scar present at midline. ). absent : Lymphadenopathy, Tenderness, Thyromegaly - Respiratory Exam Respiratory Exam: Decreased Breath Sounds, Clear to Ausculation Bilateral, Prolonged Expiratory Phase, Wheezes. absent: Accessory Muscle Use, Chest Wall Tenderness, Rales, Rhonchi, Respiratory Distress, Stridor - Cardiovascular Exam Cardiovascular Exam: Tachycardia, REGULAR RHYTHM, +S1, +S2. absent: Clicks, Diastolic murmur, Gallop, JVD, Rubs, Murmur - GI/Abdominal Exam GI & Abdominal Exam: Distended, Soft, Normal Bowel Sounds (+ ecchymosis at anticoag injection site. ). absent: Guarding, Rigid, Tenderness, Mass, Organomegaly, Pulsatile Mass, Rebound - Extremities Exam Extremities Exam: Normal Capillary Refill (+ 2 dorsalis pedis pulse. +2 tibial pulse. ), Normal Inspection (+ chronic bilateral ecchymosis). absent: Calf Tenderness, Joint Swelling, Pedal Edema, Tenderness - Back Exam Back Exam: NORMAL INSPECTION. absent: paraspinal tenderness, tenderness, vertebral tenderness - Neurological Exam Neurological Exam: Alert, Awake, Oriented x3 - Psychiatric Exam Psychiatric exam: Normal Affect, Normal Mood - Skin Skin Exam: Dry, Intact, Normal Color, Warm Assessment and Plan (1) Acute exacerbation of chronic obstructive pulmonary disease (COPD) Status: Acute (2) Acute exacerbation of CHF (congestive heart failure) Status: Acute (3) C. difficile colitis Status: Acute (4) Hyperthyroidism Status: Chronic (5) HTN (hypertension) Status: Chronic (6) Hx of breast cancer Status: Acute (7) DVT prophylaxis Status: Acute - Assessment and Plan (Free Text) Assessment: 67 yo f with medical history including COPD, CHF, hypothyroidism, history of breast Cancer s/p mastectomy, chronic RUE lymphedema was brought into the ED because of dyspnea. Patient was then found to be in respiratory failure secondary to COPD and CHF exacerbation. Patient was admitted to ICU where she was on bipap and IV steroids and diuretics. She is no longer in the ICU. Patient is currently on HNFC 20L 35%. Discussed with patient about L-TACH transfer but she states she is not interested and she just wants to go home. No acute changes. Physical therapy following. Social work looking into HFNC at home for discharge. Plan: (1) Acute exacerbation of chronic obstructive pulmonary disease (COPD) Assessment & Plan: Continue current management: - As per Dr. Benz's recommendations: continue Xopenex Q8H and a separate dose prn. Possibly start LAMA/ ICS tomorrow 12/01/17. - decrease steroids to Solumedrol 30mg Q8H. - Theophylline 400mg daily. Repeat Theophylline level: 12. - Oxygen: Patient on HFNC 20L 35%. - Continue Physical therapy when tolerated. - Percocet for pain. - Continue Chest physiotherapy. - Social work looking into HFNC at home for discharge. (2) Hyperglycemia secondary to steroids - Endocrinology recommendation: Continue low dose correction scale using regular insulin for hyperglycemic levels secondary to steroid use. - Insulin: added Levemir 10 U HS. - last 3 POC glucose readings: 241, 181, 266 (2) Acute exacerbation of CHF (congestive heart failure) Assessment & Plan: Continue current management: Diuretics prn - Continue Cardizem 120mg po Daily. (3) C. difficile colitis Assessment & Plan: - Resolved. (4) Hyperthyroidism Assessment & Plan: - T4: 1.52; Free T4: 0.15; TSH: 0.51. - Continue current Endocrinology recommendation: Methimazole 10mg po daily; if current thyroid functions continues to exist upon repeat, possibility of lowering methimazole dose. (5) HTN (hypertension) Assessment & Plan: Continue current management: Diltiazem and Losartan. (6) Hx of breast cancer Assessment & Plan: Continue current management: Arimidex. (7) DVT prophylaxis Assessment & Plan: RLE U/S negative for DVT. Continue Lovenox.
[2017-12-02] MEDS: THEOPHYLLINE 400 MG T24(UNIPHYL) PO SCH (10:00)
[2017-12-02] MEDS: Enoxaparin 40 mg Syringe SC SCH (10:00)
[2017-12-02] MEDS: guaiFENesin 600 mg ER Tab PO SCH ×2 (10:00→22:10)
[2017-12-02] MEDS: diltiaZEM 120 mg/24 Hours CD Cap PO SCH (10:00)
[2017-12-02] MEDS: Pantoprazole 40 mg EC Tab PO SCH (10:00)
[2017-12-02] MEDS: Aspirin 325 mg EC Tablets PO SCH (10:00)
[2017-12-02] MEDS: Tiotropium 18 mcg Cap For Inhalation INH SCH (10:30)
[2017-12-02] MEDS: Oxycodone/Acetaminophen 5/325 mg Tab PO PRN (19:31)
[2017-12-02] MEDS: Levalbuterol 0.63 MG/3 ML Inhal Soln UD INH PRN (19:36)
[2017-12-02] MEDS: Insulin Detemir 100 Units/ml Inj SC SCH (22:08)
[2017-12-03] MEDS: Levalbuterol 0.63 MG/3 ML Inhal Soln UD INH PRN ×2 (03:34→11:04)
--- NOTE | 2017-12-03 03:59 | PN ---
DATE: 12/02/2017 Room 408 This is a 67-year-old female with recent admission for congestive heart failure and supervening exacerbation of COPD, currently on IV steroid therapy, on a tapering dose of Solu-Medrol at 30 mg every 8 hours as given and is also now being followed closely for metabolic management. She also had overt hyperthyroidism and dose adjustments were undertaken, thereof. Her latest chemistry showed a BUN of 31, sodium 139, potassium 3.9, chloride 99, CO2 of 32, glucose 292, and creatinine 0.6. Her glucose levels have ranged from 164 to 292 mg/dL. The latest chemistry showed a BUN of 31, sodium 139, potassium 3.9, chloride 99, CO2 of 32, glucose 292, and creatinine 0.6. Her latest thyroid study showed a T4 of 1.52 with a free T4 of 0.15 and a TSH of 0.51. At this time, we will lower once again her Tapazole to 5 mg once daily starting on 12/06/2017, in the morning as ordered. We will hold off for a few days to allow a so-called therapeutic washout of the higher dose regimen as ordered. With her underlying hypoalbuminemia, this will also contribute to the low normal thyroxine values as given and noted. We will obtain serial thyroid studies and adjust her dose regimen accordingly. We will follow. Polly Vu MD
[2017-12-03] MEDS: MethylPREDNISolone 40 mg Vial IVP SCH ×3 (06:38→21:57)
[2017-12-03] MEDS: Levalbuterol 0.63 MG/3 ML Inhal Soln UD INH SCH ×3 (07:17→23:40)
[2017-12-03 07:28] LABS: HEMOGLOBIN 11.3 g/dL (12.0-16.0); MEAN CELL VOLUME 89.6 fl (81.0-99.0); MEAN CORPUSCULAR HEMOGLOBIN 28.3 pg (27.0-31.0); MEAN CORPUSCULAR HGB CONC 31.6 g/dL (33.0-37.0); RED CELL DISTRIBUTION WIDTH 19.7 % (11.5-14.5); WHITE BLOOD COUNT 9.3 K/uL (4.8-10.8)
[2017-12-03 08:16] LABS: BLOOD UREA NITROGEN 23 mg/dl (7-17); CALCIUM 8.1 mg/dL (8.4-10.2); GFR NON-AFRICAN AMERICAN > 60
[2017-12-03] MEDS: Tiotropium 18 mcg Cap For Inhalation INH SCH (09:23)
[2017-12-03] MEDS: THEOPHYLLINE 400 MG T24(UNIPHYL) PO SCH (09:23)
[2017-12-03] MEDS: Insulin Regular 100 units/ml SC SCH ×4 (09:25→22:00)
[2017-12-03] MEDS: Aspirin 325 mg EC Tablets PO SCH (09:25)
[2017-12-03] MEDS: Pantoprazole 40 mg EC Tab PO SCH (09:26)
[2017-12-03] MEDS: Enoxaparin 40 mg Syringe SC SCH (09:27)
[2017-12-03] MEDS: guaiFENesin 600 mg ER Tab PO SCH ×2 (09:27→22:00)
--- NOTE | 2017-12-03 10:01 | CP.PCM.PN ---
Subjective - Date & Time of Evaluation Date of Evaluation: 12/03/17 Time of Evaluation: 10:00 - Subjective Subjective: Pt remains on High Flow Oxygen No fever Still with dyspnea denise on exertion no wheezing today but has rales and has difficulty bringing up phlegm gets very tachycardic when she gets up no abd pain no diarrhea Objective - Vital Signs/Intake and Output Vital Signs (last 24 hours): Temp Pulse Resp BP Pulse Ox 98 F 108 H 18 157/83 H 95 12/03/17 08:08 12/03/17 09:24 12/03/17 08:08 12/03/17 09:24 12/03/17 08:08 Intake and Output: 12/03/17 12/03/17 06:59 18:59 Intake Total 240 Balance 240 - Medications Medications: Current Medications Acetaminophen (Tylenol 325mg Tab) 650 mg PO Q6 PRN PRN Reason: Pain, Mild (1-3)/headache Last Admin: 11/30/17 22:02 Dose: 650 mg Anastrozole (Arimidex 1 Mg Tab) 1 mg PO DAILY [facility] Last Admin: 12/03/17 09:29 Dose: 1 mg Aspirin (Ecotrin) 325 mg PO DAILY [facility] Last Admin: 12/03/17 09:25 Dose: 325 mg Atorvastatin Calcium (Lipitor) 40 mg PO DAILY [facility] Last Admin: 12/03/17 09:26 Dose: 40 mg Dextrose (Dextrose 50% Inj) 0 ml IV STAT PRN; Protocol PRN Reason: Hypoglycemia Protocol Dextrose (Glutose 15) 0 gm PO ONCE PRN; Protocol PRN Reason: Hypoglycemia Protocol Dicyclomine HCl (Bentyl) 10 mg PO QID PRN PRN Reason: Pain, moderate (4-7) Last Admin: 11/16/17 08:39 Dose: 10 mg Diltiazem HCl (Cardizem Cd) 120 mg PO DAILY [facility] Stop: 12/03/17 23:59 Last Admin: 12/02/17 10:00 Dose: 120 mg Diltiazem HCl (Cardizem Cd) 180 mg PO DAILY [facility] Enoxaparin Sodium (Lovenox) 40 mg SC DAILY [facility] PRN Reason: Protocol Last Admin: 12/03/17 09:27 Dose: 40 mg Gabapentin (Neurontin) 600 mg PO Q8 [facility] Last Admin: 12/03/17 09:26 Dose: 600 mg Glucagon (Glucagen Diagnostic Kit) 0 mg IM STAT PRN; Protocol PRN Reason: Hypoglycemia Protocol Guaifenesin (Mucinex La) 600 mg PO Q12 [facility] Last Admin: 12/03/17 09:27 Dose: 600 mg Guaifenesin (Robitussin) 100 mg PO Q6 PRN PRN Reason: Cough Last Admin: 12/02/17 13:16 Dose: 100 mg Insulin Detemir (Levemir) 10 units SC HS [facility] Last Admin: 12/02/17 22:08 Dose: 10 units Insulin Human Regular (Humulin R) 0 units SC ACHS [facility] PRN Reason: Protocol Last Admin: 12/03/17 09:25 Dose: 4 units Levalbuterol HCl (Xopenex) 0.63 mg INH RQ4 PRN PRN Reason: Shortness of Breath Last Admin: 12/03/17 03:34 Dose: 0.63 mg Levalbuterol HCl (Xopenex) 0.63 mg INH RQ8 [facility] Last Admin: 12/03/17 07:17 Dose: 0.63 mg Lidocaine (Lidoderm) 1 ea TD DAILY PRN PRN Reason: Pain, moderate (4-7) Last Admin: 11/29/17 09:38 Dose: 1 ea Methimazole (Tapazole) 5 mg PO DAILY [facility] Methylprednisolone (Solu-Medrol) 30 mg IVP Q12H [facility] Mirtazapine (Remeron) 15 mg PO HS [facility] Last Admin: 12/02/17 22:10 Dose: 15 mg Ondansetron HCl (Zofran Inj) 4 mg IVP Q4 PRN PRN Reason: Nausea/Vomiting Last Admin: 11/13/17 19:35 Dose: 4 mg Oxycodone/Acetaminophen (Percocet 5/325 Mg Tab) 1 tab PO Q6 PRN PRN Reason: Pain, severe (8-10) Stop: 12/04/17 06:25 Last Admin: 12/02/17 19:31 Dose: 1 tab Pantoprazole Sodium (Protonix Ec Tab) 40 mg PO DAILY [facility] Last Admin: 12/03/17 09:26 Dose: 40 mg Theophylline (Uniphyl) 400 mg PO DAILY [facility] Last Admin: 12/03/17 09:23 Dose: 400 mg Tiotropium [place] (Spiriva) 18 mcg INH DAILY [facility] Last Admin: 12/03/17 09:23 Dose: 18 mcg Zolpidem Tartrate (Ambien) 5 mg PO HS PRN PRN Reason: Insomnia Last Admin: 12/02/17 22:14 Dose: 5 mg - Labs Labs: 12/03/17 06:00 12/03/17 06:00 PT 11.1 Seconds (9.8-13.1) 11/10/17 17:32 INR 1.0 (0.9-1.2) 11/10/17 17:32 APTT 20.7 Seconds (25.6-37.1) L 11/10/17 17:32 - Constitutional Appears: Chronically Ill - Head Exam Head Exam: NORMAL INSPECTION, NORMOCEPHALIC - Eye Exam Eye Exam: Normal appearance Pupil Exam: NORMAL ACCOMODATION - ENT Exam ENT Exam: Mucous Membranes Moist, Normal External Ear Exam - Neck Exam Neck Exam: Full ROM. absent: Meningismus - Respiratory Exam Respiratory Exam: Accessory Muscle Use, Prolonged Expiratory Phase, Rales, Rhonchi - Cardiovascular Exam Cardiovascular Exam: Tachycardia, REGULAR RHYTHM, +S1, +S2 - GI/Abdominal Exam GI & Abdominal Exam: Soft, Normal Bowel Sounds. absent: Tenderness Additional comments: abd wall hematoma - Extremities Exam Extremities Exam: Normal Capillary Refill, Pedal Edema. absent: Calf Tenderness Additional comments: right arm swelling - Back Exam Back Exam: absent: CVA tenderness (L), CVA tenderness (R) - Neurological Exam Neurological Exam: Alert, Awake, Oriented x3 - Psychiatric Exam Psychiatric exam: Normal Affect, Normal Mood - Skin Skin Exam: Dry, Normal Color, Warm Assessment and Plan - Assessment and Plan (Free Text) Assessment: 67 yo female with medical history including COPD, CHF, hypothyroidism, history of breast Cancer s/p mastectomy, chronic RUE lymphedema was brought into the ED because of dyspnea. Patient was then found to be in respiratory failure secondary to COPD and CHF exacerbation. Patient was admitted to ICU where she was on bipap and IV steroids and diuretics. She is now in Telemetry Patient is currently on HNFC 20L 35%. Pt remains with dyspnea and tachycardia denise on exertion and Discussed d/c to LTACH - however pt refused and wants to go home. No acute changes. Physical therapy following. Social work looking into HFMA at home for discharge. (1) Acute exacerbation of chronic obstructive pulmonary disease (COPD) Continue current management: - discussed with Dr. Benz continue Xopenex Q8H decrease steroids to Solumedrol 30mg Q12 cont High Flow Oxygen at 20 L /35% FiO2 (2) Hyperglycemia secondary to steroids Accucheck with coverage cont Levemir (3) Acute exacerbation of CHF (congestive heart failure) Diastolic dysfunction Continue current management: Diuretics prn Increase Cardizem 180mg po Daily. (4) C. difficile colitis - Resolved. (5) Hyperthyroidism - discussed case with Dr Vu - TSH now normal - Continue Methimazole 10mg po daily 6. HTN (hypertension) Continue current management: Diltiazem and Losartan. increased Diltiazem dose (7) Hx of breast cancer Continue current management: Arimidex. DVT prophylaxis RLE U/S negative for DVT. Continue Lovenox.
--- NOTE | 2017-12-03 10:17 | CP.PCM.PN ---
Subjective - Date & Time of Evaluation Date of Evaluation: 12/03/17 Time of Evaluation: 10:14 - Subjective Subjective: Seen on rounds in telemetry. Still having difficulty raising secretions, but gradually improving. Episodes of tachycardia are still occurring, but less pronounced. Vital signs are staying within acceptable parameters. Remains on HFNC, dyspneic with mild exertion. Started on basal insulin yesterday, methimazole on hold temporarily. Awake and alert, mood is fairly good. Still developes dyspnea with prolonged conversation. Breath sounds do seem to be improving with better air exchange and NO audible wheezing. Heart rate is presently ~ 100 BPM. No dependant edema, no cyanosis, old ecchymoses are all but gone. Will reduce solumedrol to 30MG Q12H. Will D/C losartan and increase diltiazem to 180MG Q12H. Methimazole will resume at 5MG OD on the . D/C PRN guaifenesin and continue Mucinex. Objective - Vital Signs/Intake and Output Vital Signs (last 24 hours): Temp Pulse Resp BP Pulse Ox 98 F 108 H 18 157/83 H 95 12/03/17 08:08 12/03/17 09:24 12/03/17 08:08 12/03/17 09:24 12/03/17 08:08 Intake and Output: 12/02/17 12/03/17 23:59 11:59 Intake Total 240 Balance 240 - Medications Medications: Current Medications Acetaminophen (Tylenol 325mg Tab) 650 mg PO Q6 PRN PRN Reason: Pain, Mild (1-3)/headache Last Admin: 11/30/17 22:02 Dose: 650 mg Anastrozole (Arimidex 1 Mg Tab) 1 mg PO DAILY [facility] Last Admin: 12/03/17 09:29 Dose: 1 mg Aspirin (Ecotrin) 325 mg PO DAILY [facility] Last Admin: 12/03/17 09:25 Dose: 325 mg Atorvastatin Calcium (Lipitor) 40 mg PO DAILY [facility] Last Admin: 12/03/17 09:26 Dose: 40 mg Dextrose (Dextrose 50% Inj) 0 ml IV STAT PRN; Protocol PRN Reason: Hypoglycemia Protocol Dextrose (Glutose 15) 0 gm PO ONCE PRN; Protocol PRN Reason: Hypoglycemia Protocol Dicyclomine HCl (Bentyl) 10 mg PO QID PRN PRN Reason: Pain, moderate (4-7) Last Admin: 11/16/17 08:39 Dose: 10 mg Diltiazem HCl (Cardizem Cd) 120 mg PO DAILY [facility] Stop: 12/03/17 23:59 Last Admin: 12/02/17 10:00 Dose: 120 mg Diltiazem HCl (Cardizem Cd) 180 mg PO DAILY [facility] Enoxaparin Sodium (Lovenox) 40 mg SC DAILY [facility] PRN Reason: Protocol Last Admin: 12/03/17 09:27 Dose: 40 mg Gabapentin (Neurontin) 600 mg PO Q8 [facility] Last Admin: 12/03/17 09:26 Dose: 600 mg Glucagon (Glucagen Diagnostic Kit) 0 mg IM STAT PRN; Protocol PRN Reason: Hypoglycemia Protocol Guaifenesin (Mucinex La) 600 mg PO Q12 [facility] Last Admin: 12/03/17 09:27 Dose: 600 mg Insulin Detemir (Levemir) 10 units SC HS [facility] Last Admin: 12/02/17 22:08 Dose: 10 units Insulin Human Regular (Humulin R) 0 units SC ACHS [facility] PRN Reason: Protocol Last Admin: 12/03/17 09:25 Dose: 4 units Levalbuterol HCl (Xopenex) 0.63 mg INH RQ4 PRN PRN Reason: Shortness of Breath Last Admin: 12/03/17 03:34 Dose: 0.63 mg Levalbuterol HCl (Xopenex) 0.63 mg INH RQ8 [facility] Last Admin: 12/03/17 07:17 Dose: 0.63 mg Lidocaine (Lidoderm) 1 ea TD DAILY PRN PRN Reason: Pain, moderate (4-7) Last Admin: 11/29/17 09:38 Dose: 1 ea Methimazole (Tapazole) 5 mg PO DAILY [facility] Methylprednisolone (Solu-Medrol) 30 mg IVP Q12H [facility] Mirtazapine (Remeron) 15 mg PO HS [facility] Last Admin: 12/02/17 22:10 Dose: 15 mg Ondansetron HCl (Zofran Inj) 4 mg IVP Q4 PRN PRN Reason: Nausea/Vomiting Last Admin: 11/13/17 19:35 Dose: 4 mg Oxycodone/Acetaminophen (Percocet 5/325 Mg Tab) 1 tab PO Q6 PRN PRN Reason: Pain, severe (8-10) Stop: 12/04/17 06:25 Last Admin: 12/02/17 19:31 Dose: 1 tab Pantoprazole Sodium (Protonix Ec Tab) 40 mg PO DAILY [facility] Last Admin: 12/03/17 09:26 Dose: 40 mg Theophylline (Uniphyl) 400 mg PO DAILY [facility] Last Admin: 12/03/17 09:23 Dose: 400 mg Tiotropium [place] (Spiriva) 18 mcg INH DAILY [facility] Last Admin: 12/03/17 09:23 Dose: 18 mcg Zolpidem Tartrate (Ambien) 5 mg PO HS PRN PRN Reason: Insomnia Last Admin: 12/02/17 22:14 Dose: 5 mg - Labs Labs: 12/03/17 06:00 12/03/17 06:00 PT 11.1 Seconds (9.8-13.1) 11/10/17 17:32 INR 1.0 (0.9-1.2) 11/10/17 17:32 APTT 20.7 Seconds (25.6-37.1) L 11/10/17 17:32
[2017-12-03] MEDS: diltiaZEM 120 mg/24 Hours CD Cap PO SCH (10:26)
[2017-12-03] MEDS: Oxycodone/Acetaminophen 5/325 mg Tab PO PRN (14:11)
--- NOTE | 2017-12-03 15:54 | PN ---
DATE: 12/03/2017 ENDO FOLLOWUP NOTE LOCATION: In room 408. SUBJECTIVE: This is a 67-year-old female presenting here with congestive heart failure and supervening acute exacerbation of COPD, currently on IV steroid therapy as given and is now being followed closely also for thyroid management and evaluation as noted. LABORATORY DATA: Her glycemic levels are fluctuating with glucose values ranging from 277 to 292 mg/dL. Her chemistry showed a BUN of 23, sodium 138, potassium 4, chloride 98, CO2 of 22, glucose 313, and creatinine 0.5. Her thyroid studies showed a T4 of 1.52 with a TSH of 0.51. ASSESSMENT AND PLAN: So at this time, we will actually hold the Tapazole for three days and restart a lower dose of Tapazole given as 5 mg once daily to start on Tuesday as ordered. We will increase her basal insulin with Levemir to be given as 20 units subcutaneously at bedtime daily as given. We will titrate incrementally as indicated to optimize metabolic control. We will obtain serial chemistries and supplement accordingly as needed. We will follow. Polly Vu MD
[2017-12-03] MEDS ORDERED: Insulin Detemir 100 Units/ml Inj SC SCH (22:00)
[2017-12-04] MEDS: Levalbuterol 0.63 MG/3 ML Inhal Soln UD INH SCH ×2 (07:51→16:14)
[2017-12-04] MEDS: diltiaZEM 180 mg/24 Hours CD Cap PO SCH (08:30)
[2017-12-04] MEDS: Tiotropium 18 mcg Cap For Inhalation INH SCH (08:31)
[2017-12-04] MEDS: Lidocaine 5% Patch TD PRN (08:34)
[2017-12-04] MEDS: guaiFENesin 600 mg ER Tab PO SCH ×2 (08:34→22:23)
[2017-12-04] MEDS: Enoxaparin 40 mg Syringe SC SCH (08:36)
[2017-12-04] MEDS: THEOPHYLLINE 400 MG T24(UNIPHYL) PO SCH (08:36)
[2017-12-04] MEDS: Pantoprazole 40 mg EC Tab PO SCH (08:36)
[2017-12-04] MEDS: MethylPREDNISolone 40 mg Vial IVP SCH ×2 (09:25→22:24)
--- NOTE | 2017-12-04 10:27 | CP.PCM.PN ---
Subjective - Date & Time of Evaluation Date of Evaluation: 12/04/17 Time of Evaluation: 10:00 - Subjective Subjective: Feels better today compared to yesterday still with SOB on exertion less tachy today sl wheeze no CP no abd pain On High Flow Oxygen Objective - Vital Signs/Intake and Output Vital Signs (last 24 hours): Temp Pulse Resp BP Pulse Ox 98.1 F 105 H 20 140/73 95 12/04/17 08:00 12/04/17 08:30 12/04/17 08:00 12/04/17 08:30 12/04/17 08:00 - Medications Medications: Current Medications Acetaminophen (Tylenol 325mg Tab) 650 mg PO Q6 PRN PRN Reason: Pain, Mild (1-3)/headache Last Admin: 11/30/17 22:02 Dose: 650 mg Anastrozole (Arimidex 1 Mg Tab) 1 mg PO DAILY [facility] Last Admin: 12/04/17 08:32 Dose: 1 mg Aspirin (Ecotrin) 325 mg PO DAILY [facility] Last Admin: 12/03/17 09:25 Dose: 325 mg Atorvastatin Calcium (Lipitor) 40 mg PO DAILY [facility] Last Admin: 12/04/17 08:31 Dose: 40 mg Dextrose (Dextrose 50% Inj) 0 ml IV STAT PRN; Protocol PRN Reason: Hypoglycemia Protocol Dextrose (Glutose 15) 0 gm PO ONCE PRN; Protocol PRN Reason: Hypoglycemia Protocol Dicyclomine HCl (Bentyl) 10 mg PO QID PRN PRN Reason: Pain, moderate (4-7) Last Admin: 12/04/17 08:30 Dose: 10 mg Diltiazem HCl (Cardizem Cd) 180 mg PO DAILY [facility] Last Admin: 12/04/17 08:30 Dose: 180 mg Enoxaparin Sodium (Lovenox) 40 mg SC DAILY [facility] PRN Reason: Protocol Last Admin: 12/04/17 08:36 Dose: 40 mg Gabapentin (Neurontin) 600 mg PO Q8 [facility] Last Admin: 12/04/17 08:31 Dose: 600 mg Glucagon (Glucagen Diagnostic Kit) 0 mg IM STAT PRN; Protocol PRN Reason: Hypoglycemia Protocol Guaifenesin (Mucinex La) 600 mg PO Q12 [facility] Last Admin: 12/04/17 08:34 Dose: 600 mg Insulin Detemir (Levemir) 20 units SC HS [facility] Last Admin: 12/03/17 21:58 Dose: 20 units Insulin Human Regular (Humulin R) 0 units SC ACHS [facility] PRN Reason: Protocol Last Admin: 12/03/17 22:00 Dose: Not Given Levalbuterol HCl (Xopenex) 0.63 mg INH RQ4 PRN PRN Reason: Shortness of Breath Last Admin: 12/03/17 11:04 Dose: 0.63 mg Levalbuterol HCl (Xopenex) 0.63 mg INH RQ8 [facility] Last Admin: 12/04/17 07:51 Dose: 0.63 mg Lidocaine (Lidoderm) 1 ea TD DAILY PRN PRN Reason: Pain, moderate (4-7) Last Admin: 12/04/17 08:34 Dose: 1 ea Methimazole (Tapazole) 5 mg PO DAILY [facility] Methylprednisolone (Solu-Medrol) 30 mg IVP Q12H [facility] Last Admin: 12/04/17 09:25 Dose: 30 mg Mirtazapine (Remeron) 15 mg PO HS [facility] Last Admin: 12/03/17 22:00 Dose: 15 mg Ondansetron HCl (Zofran Inj) 4 mg IVP Q4 PRN PRN Reason: Nausea/Vomiting Last Admin: 11/13/17 19:35 Dose: 4 mg Pantoprazole Sodium (Protonix Ec Tab) 40 mg PO DAILY [facility] Last Admin: 12/04/17 08:36 Dose: 40 mg Theophylline (Uniphyl) 400 mg PO DAILY [facility] Last Admin: 12/04/17 08:36 Dose: 400 mg Tiotropium [place] (Spiriva) 18 mcg INH DAILY [facility] Last Admin: 12/04/17 08:31 Dose: 18 mcg Zolpidem Tartrate (Ambien) 5 mg PO HS PRN PRN Reason: Insomnia Last Admin: 12/03/17 22:04 Dose: 5 mg - Labs Labs: 12/03/17 06:00 12/03/17 06:00 PT 11.1 Seconds (9.8-13.1) 11/10/17 17:32 INR 1.0 (0.9-1.2) 11/10/17 17:32 APTT 20.7 Seconds (25.6-37.1) L 11/10/17 17:32 - Constitutional Appears: Chronically Ill - Head Exam Head Exam: NORMAL INSPECTION, NORMOCEPHALIC - Eye Exam Eye Exam: Normal appearance Pupil Exam: NORMAL ACCOMODATION - ENT Exam ENT Exam: Mucous Membranes Moist, Normal External Ear Exam - Neck Exam Neck Exam: Full ROM. absent: Meningismus - Respiratory Exam Respiratory Exam: Accessory Muscle Use, Prolonged Expiratory Phase, Rales, Rhonchi - Cardiovascular Exam Cardiovascular Exam: Tachycardia, REGULAR RHYTHM, +S1, +S2 - GI/Abdominal Exam GI & Abdominal Exam: Soft, Normal Bowel Sounds. absent: Tenderness Additional comments: abd wall hematoma - Extremities Exam Extremities Exam: Normal Capillary Refill, Pedal Edema. absent: Calf Tenderness Additional comments: right arm swelling - Back Exam Back Exam: absent: CVA tenderness (L), CVA tenderness (R) - Neurological Exam Neurological Exam: Alert, Awake, Oriented x3 - Psychiatric Exam Psychiatric exam: Normal Affect, Normal Mood - Skin Skin Exam: Dry, Normal Color, Warm Assessment and Plan - Assessment and Plan (Free Text) Assessment: 67 yo female with medical history including COPD, CHF, hypothyroidism, history of breast Cancer s/p mastectomy, chronic RUE lymphedema was brought into the ED because of dyspnea. Patient was then found to be in respiratory failure secondary to COPD and CHF exacerbation. Patient was admitted to ICU where she was on bipap and IV steroids and diuretics. She is now in Telemetry Patient is currently on High Flow Oxygen 20L 35%. Pt remains with dyspnea and tachycardia denise on exertion and Discussed d/c to LTACH - however pt refused and wants to go home. No acute changes. Physical therapy following. Social work looking into High Flow Oxygen at home for discharge. (1) Acute exacerbation of chronic obstructive pulmonary disease (COPD) Continue current management: - discussed with Dr. Benz continue Xopenex Q8H decrease steroids to Solumedrol 30mg Q12 cont High Flow Oxygen at 20 L /35% FiO2 (2) Hyperglycemia secondary to steroids Accucheck with coverage cont Levemir (3) Acute exacerbation of CHF (congestive heart failure) Diastolic dysfunction Continue current management: Diuretics prn Increase Cardizem 180mg po Daily. (4) C. difficile colitis - Resolved. (5) Hyperthyroidism - discussed case with Dr Vu - TSH now normal - decrease Methimazole 5mg po daily - starting in am 6. HTN (hypertension) Continue current management: Diltiazem and Losartan. increased Diltiazem dose (7) Hx of breast cancer Continue current management: Arimidex. DVT prophylaxis RLE U/S negative for DVT. Continue Lovenox.
[2017-12-04] MEDS: Aspirin 325 mg EC Tablets PO SCH (11:11)
[2017-12-04] MEDS: Insulin Regular 100 units/ml SC SCH ×2 (11:11→22:18)
--- NOTE | 2017-12-04 16:14 | PN ---
DATE: 12/04/2017 ENDO FOLLOWUP NOTE LOCATION: Room 408. SUBJECTIVE: This is a 67-year-old female with recent admission for congestive heart failure and exacerbation of COPD, currently on IV steroid therapy with supervening hyperglycemic accelerations as noted thereof. LABORATORY DATA: Her glucose values have improved overnight, and the levels have ranged from 192 to 215 and 196 mg/dL. Her latest chemistry showed , sodium 148, potassium 4, chloride 98, CO2 of 23, glucose 313, and creatinine of 0.5. ASSESSMENT AND PLAN: She remains clinically and biochemically euthyroid at this time. We will continue her Levemir given as basal insulin of 20 units subcutaneously at bedtime daily as ordered. We will also continue the low-dose correction scale using regular insulin as given. We will continue the modified and lower dosing of Tapazole given as 5 mg once daily, which will be restarted on Tuesday as ordered. We will obtain serial chemistries and supplement accordingly as needed. We will follow. Polly Vu MD
[2017-12-04] MEDS: Levalbuterol 0.63 MG/3 ML Inhal Soln UD INH PRN (21:21)
[2017-12-04] MEDS: Insulin Detemir 100 Units/ml Inj SC SCH (22:23)
[2017-12-05] MEDS: Levalbuterol 0.63 MG/3 ML Inhal Soln UD INH SCH ×3 (00:02→15:49)
[2017-12-05] MEDS: Oxycodone/Acetaminophen 5/325 mg Tab PO PRN (06:05)
[2017-12-05] MEDS: Insulin Regular 100 units/ml SC SCH ×4 (06:40→22:04)
[2017-12-05] MEDS: Tiotropium 18 mcg Cap For Inhalation INH SCH (10:00)
[2017-12-05] MEDS: diltiaZEM 180 mg/24 Hours CD Cap PO SCH (10:01)
[2017-12-05] MEDS: MethylPREDNISolone 40 mg Vial IVP SCH ×3 (10:01→22:03)
[2017-12-05] MEDS: Aspirin 325 mg EC Tablets PO SCH (10:02)
[2017-12-05] MEDS: Pantoprazole 40 mg EC Tab PO SCH (10:02)
[2017-12-05] MEDS: guaiFENesin 600 mg ER Tab PO SCH ×2 (10:02→22:04)
[2017-12-05] MEDS: THEOPHYLLINE 400 MG T24(UNIPHYL) PO SCH (10:02)
[2017-12-05] MEDS: Enoxaparin 40 mg Syringe SC SCH (10:03)
--- NOTE | 2017-12-05 10:12 | CP.PCM.PN ---
Subjective - Date & Time of Evaluation Date of Evaluation: 12/05/17 Time of Evaluation: 10:05 - Subjective Subjective: Seen on morning rounds. Seems to be making very slow progress. Cough is still congested, sputum is thin. Able to cough mucous up into her throat now and swallow it. She was able to do exercises in bed yesterday with PT. A little less dyspneic with conversation. Accuchecks are still quite high, on basal insulin, increased. Still tachycardic, not as high as previously. Tolerating increased dose of diltiazem. Pharynx remains pink and moist w/o exudate. Neck is supple and trachea midline. Air entry seems a little better in both lungs. Sonorous rhonchi bilaterally, no wheezing. Scattered dry to medium rales in both lungs. Heart sounds are distant, rhythm regular ~ 100BPM. Swithched to standard nasal canula at 5 LPM; SpO2 95%. Solumedrol decreased ever so slowly, down to 20MG Q12H. Basal insulin with accucheck coverage to continue. Methimazole will resume tomorrow morning. Theophylline stable at 400MG OD. Objective - Vital Signs/Intake and Output Vital Signs (last 24 hours): Temp Pulse Resp BP Pulse Ox 97.7 F 106 H 18 150/67 93 L 12/05/17 05:00 12/05/17 10:01 12/05/17 07:21 12/05/17 10:01 12/05/17 05:00 - Medications Medications: Current Medications Acetaminophen (Tylenol 325mg Tab) 650 mg PO Q6 PRN PRN Reason: Pain, Mild (1-3)/headache Last Admin: 11/30/17 22:02 Dose: 650 mg Anastrozole (Arimidex 1 Mg Tab) 1 mg PO DAILY [facility] Last Admin: 12/05/17 10:00 Dose: 1 mg Aspirin (Ecotrin) 325 mg PO DAILY [facility] Last Admin: 12/05/17 10:02 Dose: 325 mg Atorvastatin Calcium (Lipitor) 40 mg PO DAILY [facility] Last Admin: 12/05/17 10:02 Dose: 40 mg Dextrose (Dextrose 50% Inj) 0 ml IV STAT PRN; Protocol PRN Reason: Hypoglycemia Protocol Dextrose (Glutose 15) 0 gm PO ONCE PRN; Protocol PRN Reason: Hypoglycemia Protocol Dicyclomine HCl (Bentyl) 10 mg PO QID PRN PRN Reason: Pain, moderate (4-7) Last Admin: 12/04/17 08:30 Dose: 10 mg Diltiazem HCl (Cardizem Cd) 180 mg PO DAILY [facility] Last Admin: 12/05/17 10:01 Dose: 180 mg Enoxaparin Sodium (Lovenox) 40 mg SC DAILY [facility] PRN Reason: Protocol Last Admin: 12/05/17 10:03 Dose: 40 mg Gabapentin (Neurontin) 600 mg PO Q8 [facility] Last Admin: 12/05/17 10:01 Dose: 600 mg Glucagon (Glucagen Diagnostic Kit) 0 mg IM STAT PRN; Protocol PRN Reason: Hypoglycemia Protocol Guaifenesin (Mucinex La) 600 mg PO Q12 [facility] Last Admin: 12/05/17 10:02 Dose: 600 mg Methylprednisolone 20 mg/ (Sodium Chloride) 50 mls @ 100 mls/hr IV Q12H [facility] Insulin Detemir (Levemir) 12 units SC HS [facility] Last Admin: 12/04/17 22:23 Dose: 12 u Insulin Human Regular (Humulin R) 0 units SC ACHS [facility] PRN Reason: Protocol Last Admin: 12/05/17 06:40 Dose: 6 units Levalbuterol HCl (Xopenex) 0.63 mg INH RQ4 PRN PRN Reason: Shortness of Breath Last Admin: 12/04/17 21:21 Dose: 0.63 mg Levalbuterol HCl (Xopenex) 0.63 mg INH RQ8 [facility] Last Admin: 12/05/17 07:24 Dose: 0.63 mg Lidocaine (Lidoderm) 1 ea TD DAILY PRN PRN Reason: Pain, moderate (4-7) Last Admin: 11/29/17 09:38 Dose: 1 ea Methimazole (Tapazole) 5 mg PO DAILY [facility] Mirtazapine (Remeron) 15 mg PO HS [facility] Last Admin: 12/04/17 22:23 Dose: 15 mg Ondansetron HCl (Zofran Inj) 4 mg IVP Q4 PRN PRN Reason: Nausea/Vomiting Last Admin: 11/13/17 19:35 Dose: 4 mg Oxycodone/Acetaminophen (Percocet 5/325 Mg Tab) 1 tab PO Q6 PRN PRN Reason: Pain, moderate (4-7) Stop: 12/08/17 05:59 Last Admin: 12/05/17 06:05 Dose: 1 tab Pantoprazole Sodium (Protonix Ec Tab) 40 mg PO DAILY [facility] Last Admin: 12/05/17 10:02 Dose: 40 mg Theophylline (Uniphyl) 400 mg PO DAILY [facility] Last Admin: 12/05/17 10:02 Dose: 400 mg Tiotropium [place] (Spiriva) 18 mcg INH DAILY [facility] Last Admin: 12/05/17 10:00 Dose: 18 mcg - Labs Labs: 12/03/17 06:00 12/03/17 06:00 PT 11.1 Seconds (9.8-13.1) 11/10/17 17:32 INR 1.0 (0.9-1.2) 11/10/17 17:32 APTT 20.7 Seconds (25.6-37.1) L 11/10/17 17:32
[2017-12-05] MEDS ORDERED: methylPREDNISolone 20 MG in Sodium Chloride 0.9% 50 ML IV SCH (10:15)
--- NOTE | 2017-12-05 12:12 | CP.PCM.PN ---
<Alex Eppsidad - Last Filed: 12/05/17 12:17> Subjective - Date & Time of Evaluation Date of Evaluation: 12/05/17 Time of Evaluation: 08:30 - Subjective Subjective: Patient seen and examined at bedside with Dr. White. She is sitting up and eating her food but reports it is difficult to breath while she eats. She reports that she is feeling okay today without any other complaints. She is currently on HFNC 20 35%. She reports productive cough but is unable to expel the sputum. Denies fever, chills, chest pain, abdominal pain, nausea, vomiting and diarrhea. Objective - Vital Signs/Intake and Output Vital Signs (last 24 hours): Temp Pulse Resp BP Pulse Ox 97.7 F 106 H 18 150/67 93 L 12/05/17 05:00 12/05/17 10:01 12/05/17 07:21 12/05/17 10:01 12/05/17 05:00 - Medications Medications: Current Medications Acetaminophen (Tylenol 325mg Tab) 650 mg PO Q6 PRN PRN Reason: Pain, Mild (1-3)/headache Last Admin: 11/30/17 22:02 Dose: 650 mg Anastrozole (Arimidex 1 Mg Tab) 1 mg PO DAILY [facility] Last Admin: 12/05/17 10:00 Dose: 1 mg Aspirin (Ecotrin) 325 mg PO DAILY [facility] Last Admin: 12/05/17 10:02 Dose: 325 mg Atorvastatin Calcium (Lipitor) 40 mg PO DAILY [facility] Last Admin: 12/05/17 10:02 Dose: 40 mg Dextrose (Dextrose 50% Inj) 0 ml IV STAT PRN; Protocol PRN Reason: Hypoglycemia Protocol Dextrose (Glutose 15) 0 gm PO ONCE PRN; Protocol PRN Reason: Hypoglycemia Protocol Dicyclomine HCl (Bentyl) 10 mg PO QID PRN PRN Reason: Pain, moderate (4-7) Last Admin: 12/04/17 08:30 Dose: 10 mg Diltiazem HCl (Cardizem Cd) 180 mg PO DAILY [facility] Last Admin: 12/05/17 10:01 Dose: 180 mg Enoxaparin Sodium (Lovenox) 40 mg SC DAILY [facility] PRN Reason: Protocol Last Admin: 12/05/17 10:03 Dose: 40 mg Gabapentin (Neurontin) 600 mg PO Q8 [facility] Last Admin: 12/05/17 10:01 Dose: 600 mg Glucagon (Glucagen Diagnostic Kit) 0 mg IM STAT PRN; Protocol PRN Reason: Hypoglycemia Protocol Guaifenesin (Mucinex La) 600 mg PO Q12 [facility] Last Admin: 12/05/17 10:02 Dose: 600 mg Insulin Detemir (Levemir) 12 units SC HS [facility] Last Admin: 12/04/17 22:23 Dose: 12 u Insulin Human Regular (Humulin R) 0 units SC ACHS [facility] PRN Reason: Protocol Last Admin: 12/05/17 06:40 Dose: 6 units Levalbuterol HCl (Xopenex) 0.63 mg INH RQ4 PRN PRN Reason: Shortness of Breath Last Admin: 12/04/17 21:21 Dose: 0.63 mg Levalbuterol HCl (Xopenex) 0.63 mg INH RQ8 [facility] Last Admin: 12/05/17 07:24 Dose: 0.63 mg Lidocaine (Lidoderm) 1 ea TD DAILY PRN PRN Reason: Pain, moderate (4-7) Last Admin: 11/29/17 09:38 Dose: 1 ea Methimazole (Tapazole) 5 mg PO DAILY [facility] Methylprednisolone (Solu-Medrol) 20 mg IVP Q12 [facility] Mirtazapine (Remeron) 15 mg PO HS [facility] Last Admin: 12/04/17 22:23 Dose: 15 mg Ondansetron HCl (Zofran Inj) 4 mg IVP Q4 PRN PRN Reason: Nausea/Vomiting Last Admin: 11/13/17 19:35 Dose: 4 mg Oxycodone/Acetaminophen (Percocet 5/325 Mg Tab) 1 tab PO Q6 PRN PRN Reason: Pain, moderate (4-7) Stop: 12/08/17 05:59 Last Admin: 12/05/17 06:05 Dose: 1 tab Pantoprazole Sodium (Protonix Ec Tab) 40 mg PO DAILY [facility] Last Admin: 12/05/17 10:02 Dose: 40 mg Theophylline (Uniphyl) 400 mg PO DAILY [facility] Last Admin: 12/05/17 10:02 Dose: 400 mg Tiotropium [place] (Spiriva) 18 mcg INH DAILY [facility] Last Admin: 12/05/17 10:00 Dose: 18 mcg - Labs Labs: 12/03/17 06:00 12/03/17 06:00 PT 11.1 Seconds (9.8-13.1) 11/10/17 17:32 INR 1.0 (0.9-1.2) 11/10/17 17:32 APTT 20.7 Seconds (25.6-37.1) L 11/10/17 17:32 - Constitutional Appears: Non-toxic, No Acute Distress, Chronically Ill - Head Exam Head Exam: NORMAL INSPECTION - Eye Exam Eye Exam: Normal appearance - ENT Exam ENT Exam: Mucous Membranes Moist, Normal Exam - Neck Exam Neck Exam: Normal Inspection (+ tracheostomy scar present at midline. ). absent : Lymphadenopathy, Tenderness, Thyromegaly - Respiratory Exam Respiratory Exam: Decreased Breath Sounds, Clear to Ausculation Bilateral, Prolonged Expiratory Phase, Rhonchi. absent: Chest Wall Tenderness, Rales, Wheezes, Respiratory Distress, Stridor - Cardiovascular Exam Cardiovascular Exam: Tachycardia, REGULAR RHYTHM, +S1, +S2. absent: Clicks, Diastolic murmur, JVD, Rubs, Murmur Additional comments: distant heart sounds. - GI/Abdominal Exam GI & Abdominal Exam: Distended, Soft, Normal Bowel Sounds. absent: Firm, Guarding, Rigid, Tenderness, Mass, Organomegaly, Rebound - Extremities Exam Extremities Exam: Normal Inspection. absent: Calf Tenderness, Pedal Edema, Tenderness Additional comments: + RUE lymphedema. + Right shoulder surgical scar. - Neurological Exam Neurological Exam: Alert, Awake, Oriented x3 - Psychiatric Exam Psychiatric exam: Normal Affect, Normal Mood - Skin Skin Exam: Dry, Intact, Normal Color, Warm Assessment and Plan (1) Acute exacerbation of chronic obstructive pulmonary disease (COPD) Status: Acute (2) Acute exacerbation of CHF (congestive heart failure) Status: Acute (3) C. difficile colitis Status: Acute (4) Hyperthyroidism Status: Chronic (5) HTN (hypertension) Status: Chronic (6) Hx of breast cancer Status: Acute (7) DVT prophylaxis Status: Acute - Assessment and Plan (Free Text) Assessment: 67 yo female with medical history including COPD, CHF, hypothyroidism, history of breast Cancer s/p mastectomy, chronic RUE lymphedema was brought into the ED because of dyspnea. Patient was then found to be in respiratory failure secondary to COPD and CHF exacerbation. Patient was admitted to ICU where she was on bipap and IV steroids and diuretics. Patient is currently on Telemetry and is not on HFNC, she is on NC 5L. She remains dyspneic on exertion and with eating and tachycardia. Patient is still not interested in being discharged to LTACH, she wants to go home. No acute changes. Physical therapy following. Plan: (1) Acute exacerbation of chronic obstructive pulmonary disease (COPD) Continue current management: - Pulm recommendation, Dr. Benz: continue Xopenex Q8H - decrease steroids to Solumedrol 20mg Q12H - Patient on trial of NC 5L. -Continue Theophylline 400mg Daily. (2) Hyperglycemia secondary to steroids - Continue monitoring with Accucheck with coverage - Continue current management: Levemir (3) Acute exacerbation of CHF (congestive heart failure) Diastolic dysfunction Continue current management: Diuretics prn Continue Cardizem 180mg po Daily. (4) C. difficile colitis - Resolved. (5) Hyperthyroidism - discussed case with Dr Vu: TSH now normal - Continue Methimazole 5mg po daily - starting in am 6. HTN (hypertension) Continue current management: Diltiazem and Losartan. - Continue Cardizem 180mg po daily. (7) Hx of breast cancer Continue current management: Arimidex. DVT prophylaxis: RLE U/S negative for DVT. Continue Lovenox. <Chandan White - Last Filed: 12/06/17 15:59> Objective - Vital Signs/Intake and Output Vital Signs (last 24 hours): Temp Pulse Resp BP Pulse Ox 98.2 F 105 H 20 132/72 97 12/06/17 15:48 12/06/17 15:48 12/06/17 15:48 12/06/17 15:48 12/06/17 15:48 Intake and Output: 12/06/17 12/06/17 06:59 18:59 Intake Total 240 Balance 240 - Medications Medications: Current Medications Acetaminophen (Tylenol 325mg Tab) 650 mg PO Q6 PRN PRN Reason: Pain, Mild (1-3)/headache Last Admin: 11/30/17 22:02 Dose: 650 mg Anastrozole (Arimidex 1 Mg Tab) 1 mg PO DAILY [facility] Last Admin: 12/06/17 09:06 Dose: 1 mg Aspirin (Ecotrin) 325 mg PO DAILY [facility] Last Admin: 12/06/17 09:05 Dose: 325 mg Atorvastatin Calcium (Lipitor) 40 mg PO DAILY [facility] Last Admin: 12/05/17 10:02 Dose: 40 mg Dextrose (Dextrose 50% Inj) 0 ml IV STAT PRN; Protocol PRN Reason: Hypoglycemia Protocol Dextrose (Glutose 15) 0 gm PO ONCE PRN; Protocol PRN Reason: Hypoglycemia Protocol Dicyclomine HCl (Bentyl) 10 mg PO QID PRN PRN Reason: Pain, moderate (4-7) Last Admin: 12/04/17 08:30 Dose: 10 mg Diltiazem HCl (Cardizem Cd) 180 mg PO DAILY [facility] Last Admin: 12/06/17 09:06 Dose: 180 mg Enoxaparin Sodium (Lovenox) 40 mg SC DAILY [facility] PRN Reason: Protocol Last Admin: 12/06/17 09:04 Dose: 40 mg Gabapentin (Neurontin) 600 mg PO Q8 [facility] Last Admin: 12/06/17 09:03 Dose: 600 mg Glucagon (Glucagen Diagnostic Kit) 0 mg IM STAT PRN; Protocol PRN Reason: Hypoglycemia Protocol Guaifenesin (Mucinex La) 600 mg PO Q12 [facility] Last Admin: 12/06/17 09:03 Dose: 600 mg Insulin Detemir (Levemir) 12 units SC HS [facility] Last Admin: 12/05/17 22:05 Dose: 12 u Insulin Human Regular (Humulin R) 0 units SC ACHS [facility] PRN Reason: Protocol Last Admin: 12/05/17 22:04 Dose: Not Given Levalbuterol HCl (Xopenex) 0.63 mg INH RQ4 PRN PRN Reason: Shortness of Breath Last Admin: 12/05/17 21:06 Dose: 0.63 mg Levalbuterol HCl (Xopenex) 0.63 mg INH RQ8 [facility] Last Admin: 12/06/17 15:34 Dose: 0.63 mg Lidocaine (Lidoderm) 1 ea TD DAILY PRN PRN Reason: Pain, moderate (4-7) Last Admin: 11/29/17 09:38 Dose: 1 ea Methimazole (Tapazole) 5 mg PO DAILY [facility] Last Admin: 12/06/17 09:04 Dose: 5 mg Methylprednisolone (Solu-Medrol) 20 mg IVP Q12 [facility] Last Admin: 12/06/17 09:03 Dose: 20 mg Mirtazapine (Remeron) 15 mg PO HS [facility] Last Admin: 12/05/17 22:04 Dose: 15 mg Ondansetron HCl (Zofran Inj) 4 mg IVP Q4 PRN PRN Reason: Nausea/Vomiting Last Admin: 11/13/17 19:35 Dose: 4 mg Oxycodone/Acetaminophen (Percocet 5/325 Mg Tab) 1 tab PO Q6 PRN PRN Reason: Pain, moderate (4-7) Stop: 12/08/17 05:59 Last Admin: 12/06/17 04:37 Dose: 1 tab Pantoprazole Sodium (Protonix Ec Tab) 40 mg PO DAILY [facility] Last Admin: 12/06/17 09:03 Dose: 40 mg Theophylline (Uniphyl) 400 mg PO DAILY [facility] Last Admin: 12/06/17 09:03 Dose: 400 mg Tiotropium [place] (Spiriva) 18 mcg INH DAILY [facility] Last Admin: 12/06/17 09:03 Dose: 18 mcg - Labs Labs: 12/06/17 04:20 12/06/17 04:20 PT 11.1 Seconds (9.8-13.1) 11/10/17 17:32 INR 1.0 (0.9-1.2) 11/10/17 17:32 APTT 20.7 Seconds (25.6-37.1) L 11/10/17 17:32 Attending/Attestation - Attestation I have personally seen and examined this patient.: Yes I have fully participated in the care of the patient.: Yes I have reviewed all pertinent clinical information, including history, physical exam and plan: Yes Notes (Text): Patient is currently on Telemetry and is not on HFNC, she is on NC 5L. She remains dyspneic on exertion and with eating and tachycardia. Patient is still not interested in being discharged to LTACH, she wants to go home. very slow to improve consider [facility] pulmonary rehab as outpatient
[2017-12-05] MEDS: Levalbuterol 0.63 MG/3 ML Inhal Soln UD INH PRN (21:06)
[2017-12-05] MEDS: Insulin Detemir 100 Units/ml Inj SC SCH (22:05)
--- NOTE | 2017-12-05 22:32 | PN ---
DATE: 12/05/2017 LOCATION: Room 408. SUBJECTIVE: This is a 67-year-old female with recent uncontrolled type 2 insulin-requiring diabetes, now being followed closely for metabolic management. Her glycemic levels are fluctuating with the intercurrent IV steroids as given and the glucose values overnight have ranged from 192-202 and 222 and 380 mg/dL. Her latest chemistry showed a BUN of 23, sodium 138, potassium 4.0, chloride 98, CO2 of 32, glucose 313, and creatinine 0.5. Her thyroid studies are pending as ordered today, and the latest T4 or thyroxine level is 1.52 with a TSH of 0.51. PLAN OF MANAGEMENT: At this time, we have actually withheld the Tapazole medication since the past weekend to allow for full therapeutic washout at this time. We will restart her Tapazole tomorrow at the lower dose of 5 mg once daily as indicated. We will obtain serial chemistries and supplement accordingly as needed. We will also continue her low-dose correction scale using regular insulin as given. We will modify the basal insulin with Levemir to be given as 12 units subcu at bedtime daily as ordered. We will obtain serial chemistries and supplement accordingly as needed. We will follow. Polly Vu MD
[2017-12-06] MEDS: Levalbuterol 0.63 MG/3 ML Inhal Soln UD INH SCH ×4 (00:05→23:28)
[2017-12-06] MEDS: Oxycodone/Acetaminophen 5/325 mg Tab PO PRN (04:37)
[2017-12-06 06:04] LABS: HEMOGLOBIN 11.8 g/dL (12.0-16.0); MEAN CELL VOLUME 90.1 fl (81.0-99.0); MEAN CORPUSCULAR HEMOGLOBIN 28.9 pg (27.0-31.0); MEAN CORPUSCULAR HGB CONC 32.1 g/dL (33.0-37.0); RBC 4.08 Mil/uL (3.80-5.20); RED CELL DISTRIBUTION WIDTH 20.4 % (11.5-14.5); WHITE BLOOD COUNT 10.2 K/uL (4.8-10.8)
[2017-12-06 06:12] LABS: ALB/GLOB RATIO 1.3 (1.0-2.1); ALT/SGPT 36 U/L (9-52); AST/SGOT 23 U/L (14-36); BLOOD UREA NITROGEN 20 mg/dl (7-17); CALCIUM 8.3 mg/dL (8.4-10.2); GFR NON-AFRICAN AMERICAN > 60
[2017-12-06] MEDS: Insulin Regular 100 units/ml SC SCH ×4 (07:30→21:48)
[2017-12-06] MEDS: THEOPHYLLINE 400 MG T24(UNIPHYL) PO SCH (09:03)
[2017-12-06] MEDS: guaiFENesin 600 mg ER Tab PO SCH ×2 (09:03→21:51)
[2017-12-06] MEDS: Tiotropium 18 mcg Cap For Inhalation INH SCH (09:03)
[2017-12-06] MEDS: Pantoprazole 40 mg EC Tab PO SCH (09:03)
[2017-12-06] MEDS: MethylPREDNISolone 40 mg Vial IVP SCH ×2 (09:03→21:51)
[2017-12-06] MEDS: Enoxaparin 40 mg Syringe SC SCH (09:04)
[2017-12-06] MEDS: methIMAzole 5 MG TAB PO SCH (09:04)
[2017-12-06] MEDS: Aspirin 325 mg EC Tablets PO SCH (09:05)
[2017-12-06] MEDS: diltiaZEM 180 mg/24 Hours CD Cap PO SCH (09:06)
--- NOTE | 2017-12-06 09:58 | CP.PCM.PN ---
Subjective - Date & Time of Evaluation Date of Evaluation: 12/06/17 Time of Evaluation: 09:57 - Subjective Subjective: Appears to be tolerating reductions in dose of steroids, and increased diltiazem. Still dyspneic with simple activity. Still coughing ineffectively. Congested, unable to expectorate., Remains well oxygenated with nasal canula. Still tachycardic, mildly hypertensive. Scattered coarse rhonchi are present bilaterally. Expiratory phase is prolonged with few expiriatory wheezes present. No bronchial breath sounds or egophony heard. Remains on basal insulin, consider increasing diltiazem further. Continue on standard nasal canula. Objective - Vital Signs/Intake and Output Vital Signs (last 24 hours): Temp Pulse Resp BP Pulse Ox 98.0 F 112 H 20 148/72 97 12/06/17 08:28 12/06/17 09:06 12/06/17 08:28 12/06/17 09:06 12/06/17 08:28 Intake and Output: 12/05/17 12/06/17 23:59 11:59 Intake Total 240 Balance 240 - Medications Medications: Current Medications Acetaminophen (Tylenol 325mg Tab) 650 mg PO Q6 PRN PRN Reason: Pain, Mild (1-3)/headache Last Admin: 11/30/17 22:02 Dose: 650 mg Anastrozole (Arimidex 1 Mg Tab) 1 mg PO DAILY [facility] Last Admin: 12/06/17 09:06 Dose: 1 mg Aspirin (Ecotrin) 325 mg PO DAILY [facility] Last Admin: 12/06/17 09:05 Dose: 325 mg Atorvastatin Calcium (Lipitor) 40 mg PO DAILY [facility] Last Admin: 12/05/17 10:02 Dose: 40 mg Dextrose (Dextrose 50% Inj) 0 ml IV STAT PRN; Protocol PRN Reason: Hypoglycemia Protocol Dextrose (Glutose 15) 0 gm PO ONCE PRN; Protocol PRN Reason: Hypoglycemia Protocol Dicyclomine HCl (Bentyl) 10 mg PO QID PRN PRN Reason: Pain, moderate (4-7) Last Admin: 12/04/17 08:30 Dose: 10 mg Diltiazem HCl (Cardizem Cd) 180 mg PO DAILY [facility] Last Admin: 12/06/17 09:06 Dose: 180 mg Enoxaparin Sodium (Lovenox) 40 mg SC DAILY [facility] PRN Reason: Protocol Last Admin: 12/06/17 09:04 Dose: 40 mg Gabapentin (Neurontin) 600 mg PO Q8 [facility] Last Admin: 12/06/17 09:03 Dose: 600 mg Glucagon (Glucagen Diagnostic Kit) 0 mg IM STAT PRN; Protocol PRN Reason: Hypoglycemia Protocol Guaifenesin (Mucinex La) 600 mg PO Q12 [facility] Last Admin: 12/06/17 09:03 Dose: 600 mg Insulin Detemir (Levemir) 12 units SC [facility] Last Admin: 12/05/17 22:05 Dose: 12 u Insulin Human Regular (Humulin R) 0 units SC [facility] PRN Reason: Protocol Last Admin: 12/05/17 22:04 Dose: Not Given Levalbuterol HCl (Xopenex) 0.63 mg INH RQ4 PRN PRN Reason: Shortness of Breath Last Admin: 12/05/17 21:06 Dose: 0.63 mg Levalbuterol HCl (Xopenex) 0.63 mg INH RQ8 [facility] Last Admin: 12/06/17 07:15 Dose: 0.63 mg Lidocaine (Lidoderm) 1 ea TD DAILY PRN PRN Reason: Pain, moderate (4-7) Last Admin: 11/29/17 09:38 Dose: 1 ea Methimazole (Tapazole) 5 mg PO DAILY [facility] Last Admin: 12/06/17 09:04 Dose: 5 mg Methylprednisolone (Solu-Medrol) 20 mg IVP Q12 [facility] Last Admin: 12/06/17 09:03 Dose: 20 mg Mirtazapine (Remeron) 15 mg PO [facility] Last Admin: 12/05/17 22:04 Dose: 15 mg Ondansetron HCl (Zofran Inj) 4 mg IVP Q4 PRN PRN Reason: Nausea/Vomiting Last Admin: 11/13/17 19:35 Dose: 4 mg Oxycodone/Acetaminophen (Percocet 5/325 Mg Tab) 1 tab PO Q6 PRN PRN Reason: Pain, moderate (4-7) Stop: 12/08/17 05:59 Last Admin: 12/06/17 04:37 Dose: 1 tab Pantoprazole Sodium (Protonix Ec Tab) 40 mg PO DAILY [facility] Last Admin: 12/06/17 09:03 Dose: 40 mg Theophylline (Uniphyl) 400 mg PO DAILY [facility] Last Admin: 12/06/17 09:03 Dose: 400 mg Tiotropium [place] (Spiriva) 18 mcg INH DAILY [facility] Last Admin: 12/06/17 09:03 Dose: 18 mcg - Labs Labs: 12/06/17 04:20 12/06/17 04:20 PT 11.1 Seconds (9.8-13.1) 11/10/17 17:32 INR 1.0 (0.9-1.2) 11/10/17 17:32 APTT 20.7 Seconds (25.6-37.1) L 11/10/17 17:32
--- NOTE | 2017-12-06 12:58 | CP.PCM.PN ---
<Linda Epps - Last Filed: 12/06/17 12:56> Subjective - Date & Time of Evaluation Date of Evaluation: 12/06/17 Time of Evaluation: 12:56 - Subjective Subjective: Patient seen and examined at bedside with Dr. White. She is dyspneic with speech and has to eat slowly as she needs to catch her breath after every bite of food. She denies chest pain, nausea, vomiting and diarrhea. Patient is end-stage COPD, discussed with Dr. Benz, trying all supportive measures at this time. Objective - Vital Signs/Intake and Output Vital Signs (last 24 hours): Temp Pulse Resp BP Pulse Ox 98.1 F 111 H 20 150/78 98 12/06/17 12:33 12/06/17 12:33 12/06/17 12:33 12/06/17 12:33 12/06/17 12:33 Intake and Output: 12/06/17 12/06/17 06:59 18:59 Intake Total 240 Balance 240 - Medications Medications: Current Medications Acetaminophen (Tylenol 325mg Tab) 650 mg PO Q6 PRN PRN Reason: Pain, Mild (1-3)/headache Last Admin: 11/30/17 22:02 Dose: 650 mg Anastrozole (Arimidex 1 Mg Tab) 1 mg PO DAILY [facility] Last Admin: 12/06/17 09:06 Dose: 1 mg Aspirin (Ecotrin) 325 mg PO DAILY [facility] Last Admin: 12/06/17 09:05 Dose: 325 mg Atorvastatin Calcium (Lipitor) 40 mg PO DAILY [facility] Last Admin: 12/05/17 10:02 Dose: 40 mg Dextrose (Dextrose 50% Inj) 0 ml IV STAT PRN; Protocol PRN Reason: Hypoglycemia Protocol Dextrose (Glutose 15) 0 gm PO ONCE PRN; Protocol PRN Reason: Hypoglycemia Protocol Dicyclomine HCl (Bentyl) 10 mg PO QID PRN PRN Reason: Pain, moderate (4-7) Last Admin: 12/04/17 08:30 Dose: 10 mg Diltiazem HCl (Cardizem Cd) 180 mg PO DAILY [facility] Last Admin: 12/06/17 09:06 Dose: 180 mg Enoxaparin Sodium (Lovenox) 40 mg SC DAILY [facility] PRN Reason: Protocol Last Admin: 12/06/17 09:04 Dose: 40 mg Gabapentin (Neurontin) 600 mg PO Q8 [facility] Last Admin: 12/06/17 09:03 Dose: 600 mg Glucagon (Glucagen Diagnostic Kit) 0 mg IM STAT PRN; Protocol PRN Reason: Hypoglycemia Protocol Guaifenesin (Mucinex La) 600 mg PO Q12 [facility] Last Admin: 12/06/17 09:03 Dose: 600 mg Insulin Detemir (Levemir) 12 units SC HS [facility] Last Admin: 12/05/17 22:05 Dose: 12 u Insulin Human Regular (Humulin R) 0 units SC ACHS [facility] PRN Reason: Protocol Last Admin: 12/05/17 22:04 Dose: Not Given Levalbuterol HCl (Xopenex) 0.63 mg INH RQ4 PRN PRN Reason: Shortness of Breath Last Admin: 12/05/17 21:06 Dose: 0.63 mg Levalbuterol HCl (Xopenex) 0.63 mg INH RQ8 [facility] Last Admin: 12/06/17 07:15 Dose: 0.63 mg Lidocaine (Lidoderm) 1 ea TD DAILY PRN PRN Reason: Pain, moderate (4-7) Last Admin: 11/29/17 09:38 Dose: 1 ea Methimazole (Tapazole) 5 mg PO DAILY [facility] Last Admin: 12/06/17 09:04 Dose: 5 mg Methylprednisolone (Solu-Medrol) 20 mg IVP Q12 [facility] Last Admin: 12/06/17 09:03 Dose: 20 mg Mirtazapine (Remeron) [address] [facility] Last Admin: 12/05/17 22:04 Dose: 15 mg Ondansetron HCl (Zofran Inj) 4 mg IVP Q4 PRN PRN Reason: Nausea/Vomiting Last Admin: 11/13/17 19:35 Dose: 4 mg Oxycodone/Acetaminophen (Percocet 5/325 Mg Tab) 1 tab PO Q6 PRN PRN Reason: Pain, moderate (4-7) Stop: 12/08/17 05:59 Last Admin: 12/06/17 04:37 Dose: 1 tab Pantoprazole Sodium (Protonix Ec Tab) 40 mg PO DAILY [facility] Last Admin: 12/06/17 09:03 Dose: 40 mg Theophylline (Uniphyl) 400 mg PO DAILY [facility] Last Admin: 12/06/17 09:03 Dose: 400 mg Tiotropium [place] (Spiriva) 18 mcg INH DAILY [facility] Last Admin: 12/06/17 09:03 Dose: 18 mcg - Labs Labs: 12/06/17 04:20 12/06/17 04:20 PT 11.1 Seconds (9.8-13.1) 11/10/17 17:32 INR 1.0 (0.9-1.2) 11/10/17 17:32 APTT 20.7 Seconds (25.6-37.1) L 11/10/17 17:32 - Constitutional Appears: Well, Non-toxic, No Acute Distress, Chronically Ill - Head Exam Head Exam: NORMAL INSPECTION - Eye Exam Eye Exam: Normal appearance - ENT Exam ENT Exam: Mucous Membranes Moist, Normal Oropharynx - Neck Exam Neck Exam: Normal Inspection. absent: Lymphadenopathy, Tenderness, Thyromegaly Additional comments: + tracheostomy scar present at midline of neck. - Respiratory Exam Respiratory Exam: Clear to Ausculation Bilateral, Prolonged Expiratory Phase, Rhonchi. absent: Chest Wall Tenderness, Decreased Breath Sounds, Rales, Wheezes , Respiratory Distress, Stridor - Cardiovascular Exam Cardiovascular Exam: Tachycardia, REGULAR RHYTHM, +S1, +S2. absent: Clicks, Diastolic murmur, Gallop, JVD, RRR, Rubs, Murmur - GI/Abdominal Exam GI & Abdominal Exam: Distended, Soft, Normal Bowel Sounds. absent: Firm, Guarding, Rigid, Tenderness, Organomegaly, Pulsatile Mass, Rebound - Extremities Exam Extremities Exam: Normal Inspection (+ chronic ecchymosis bilaterally. ). absent: Calf Tenderness, Joint Swelling, Pedal Edema, Tenderness - Neurological Exam Neurological Exam: Alert, Awake, Oriented x3 - Psychiatric Exam Psychiatric exam: Normal Affect, Normal Mood - Skin Skin Exam: Dry, Intact, Normal Color, Warm Assessment and Plan (1) Acute exacerbation of chronic obstructive pulmonary disease (COPD) Status: Acute (2) Acute exacerbation of CHF (congestive heart failure) Status: Acute (3) C. difficile colitis Status: Acute (4) Hyperthyroidism Status: Chronic (5) HTN (hypertension) Status: Chronic (6) Hx of breast cancer Status: Acute (7) DVT prophylaxis Status: Acute - Assessment and Plan (Free Text) Assessment: 67 yo female with medical history including COPD, CHF, hypothyroidism, history of breast Cancer s/p mastectomy, chronic RUE lymphedema was brought into the ED because of dyspnea. Patient was then found to be in respiratory failure secondary to COPD and CHF exacerbation. Patient was admitted to ICU where she was on bipap and IV steroids and diuretics. Patient is currently on Telemetry and is on NC 5L. She remains dyspneic on exertion and with eating and tachycardia. Patient is still not interested in being discharged to [facility], she wants to go home. No acute changes. Physical therapy following. Plan: (1) Acute exacerbation of chronic obstructive pulmonary disease (COPD) Continue current management: - Pulm recommendation, Dr. Benz: continue Xopenex Q8H - decrease steroids to Solumedrol 20mg Q12H - Patient on NC 5L. -Continue Theophylline 400mg Daily. (2) Hyperglycemia secondary to steroids - Continue monitoring with Accucheck with coverage - Continue current management: Levemir (3) Acute exacerbation of CHF (congestive heart failure) Diastolic dysfunction Continue current management: Diuretics prn Continue Cardizem 180mg po Daily. (4) C. difficile colitis - Resolved. (5) Hyperthyroidism - discussed case with Dr Vu: TSH now normal - Restarted Methimazole 5mg po daily - today 6. HTN (hypertension) Continue current management: Diltiazem and Losartan. -Continue Cardizem 180mg po daily. (7) Hx of breast cancer Continue current management: Arimidex. DVT prophylaxis: RLE U/S negative for DVT. Continue Lovenox. <Chandan White - Last Filed: 12/06/17 16:01> Objective - Vital Signs/Intake and Output Vital Signs (last 24 hours): Temp Pulse Resp BP Pulse Ox 98.2 F 105 H 20 132/72 97 12/06/17 15:48 12/06/17 15:48 12/06/17 15:48 12/06/17 15:48 12/06/17 15:48 Intake and Output: 12/06/17 12/06/17 06:59 18:59 Intake Total 240 Balance 240 - Medications Medications: Current Medications Acetaminophen (Tylenol 325mg Tab) 650 mg PO Q6 PRN PRN Reason: Pain, Mild (1-3)/headache Last Admin: 11/30/17 22:02 Dose: 650 mg Anastrozole (Arimidex 1 Mg Tab) 1 mg PO DAILY [facility] Last Admin: 12/06/17 09:06 Dose: 1 mg Aspirin (Ecotrin) 325 mg PO DAILY [facility] Last Admin: 12/06/17 09:05 Dose: 325 mg Atorvastatin Calcium (Lipitor) 40 mg PO DAILY [facility] Last Admin: 12/05/17 10:02 Dose: 40 mg Dextrose (Dextrose 50% Inj) 0 ml IV STAT PRN; Protocol PRN Reason: Hypoglycemia Protocol Dextrose (Glutose 15) 0 gm PO ONCE PRN; Protocol PRN Reason: Hypoglycemia Protocol Dicyclomine HCl (Bentyl) 10 mg PO QID PRN PRN Reason: Pain, moderate (4-7) Last Admin: 12/04/17 08:30 Dose: 10 mg Diltiazem HCl (Cardizem Cd) 180 mg PO DAILY [facility] Last Admin: 12/06/17 09:06 Dose: 180 mg Enoxaparin Sodium (Lovenox) 40 mg SC DAILY [facility] PRN Reason: Protocol Last Admin: 12/06/17 09:04 Dose: 40 mg Gabapentin (Neurontin) 600 mg PO Q8 [facility] Last Admin: 12/06/17 09:03 Dose: 600 mg Glucagon (Glucagen Diagnostic Kit) 0 mg IM STAT PRN; Protocol PRN Reason: Hypoglycemia Protocol Guaifenesin (Mucinex La) 600 mg PO Q12 [facility] Last Admin: 12/06/17 09:03 Dose: 600 mg Insulin Detemir (Levemir) 12 units SC HS [facility] Last Admin: 12/05/17 22:05 Dose: 12 u Insulin Human Regular (Humulin R) 0 units SC ACHS [facility] PRN Reason: Protocol Last Admin: 12/05/17 22:04 Dose: Not Given Levalbuterol HCl (Xopenex) 0.63 mg INH RQ4 PRN PRN Reason: Shortness of Breath Last Admin: 12/05/17 21:06 Dose: 0.63 mg Levalbuterol HCl (Xopenex) 0.63 mg INH RQ8 [facility] Last Admin: 12/06/17 15:34 Dose: 0.63 mg Lidocaine (Lidoderm) 1 ea TD DAILY PRN PRN Reason: Pain, moderate (4-7) Last Admin: 11/29/17 09:38 Dose: 1 ea Methimazole (Tapazole) 5 mg PO DAILY [facility] Last Admin: 12/06/17 09:04 Dose: 5 mg Methylprednisolone (Solu-Medrol) 20 mg IVP Q12 [facility] Last Admin: 12/06/17 09:03 Dose: 20 mg Mirtazapine (Remeron) 15 mg PO HS [facility] Last Admin: 12/05/17 22:04 Dose: 15 mg Ondansetron HCl (Zofran Inj) 4 mg IVP Q4 PRN PRN Reason: Nausea/Vomiting Last Admin: 11/13/17 19:35 Dose: 4 mg Oxycodone/Acetaminophen (Percocet 5/325 Mg Tab) 1 tab PO Q6 PRN PRN Reason: Pain, moderate (4-7) Stop: 12/08/17 05:59 Last Admin: 12/06/17 04:37 Dose: 1 tab Pantoprazole Sodium (Protonix Ec Tab) 40 mg PO DAILY [facility] Last Admin: 12/06/17 09:03 Dose: 40 mg Theophylline (Uniphyl) 400 mg PO DAILY [facility] Last Admin: 12/06/17 09:03 Dose: 400 mg Tiotropium [place] (Spiriva) 18 mcg INH DAILY [facility] Last Admin: 12/06/17 09:03 Dose: 18 mcg - Labs Labs: 12/06/17 04:20 12/06/17 04:20 PT 11.1 Seconds (9.8-13.1) 11/10/17 17:32 INR 1.0 (0.9-1.2) 11/10/17 17:32 APTT 20.7 Seconds (25.6-37.1) L 11/10/17 17:32 Attending/Attestation - Attestation I have personally seen and examined this patient.: Yes I have fully participated in the care of the patient.: Yes I have reviewed all pertinent clinical information, including history, physical exam and plan: Yes Notes (Text): Patient is currently on Telemetry and is not on HFNC, she is on NC 5L. She remains dyspneic on exertion and with eating and tachycardia. Patient is still not interested in being discharged to [facility], she wants to go home. very slow to improve consider [facility] pulmonary rehab as outpatient
[2017-12-06] MEDS: Petrolatum UD PAK TOP PRN (18:49)
--- NOTE | 2017-12-06 19:10 | PN ---
Copied To: Polly Vu MD Attending MD: DATE: 12/06/2017 ENDO FOLLOWUP NOTE LOCATION: In room 408, bed 2. SUBJECTIVE: This is a 67-year-old female with recent admission for acute exacerbation of congestive heart failure with supervening COPD, currently on a tapering dose of IV steroids, on Solu-Medrol at 20 mg every 12 hours as given. She also had recent hyperglycemic accelerations as expected temporarily, but the glucose values have improved overnight, ranging from 195 to 209 mg/dL. LABORATORY DATA: Her latest chemistries showed a BUN of 20, sodium 136, potassium 4.2, chloride 98, CO2 of 34, glucose 268, and creatinine 0.5. ASSESSMENT AND PLAN: So at this time, we will continue the low-dose basal insulin given as Levemir at 12 units subcutaneously at bedtime daily as given. We will titrate incrementally as indicated to optimize metabolic control. We will repeat the thyroid studies with a total and free T4 and TSH as we have restarted back her Tapazole given as 5 mg once daily as ordered. We will obtain serial chemistries and supplement accordingly as needed. We will follow. Polly Vu MD
[2017-12-06] MEDS: Levalbuterol 0.63 MG/3 ML Inhal Soln UD INH PRN (19:21)
[2017-12-06] MEDS: Insulin Detemir 100 Units/ml Inj SC SCH (21:49)
[2017-12-07 05:57] LABS: T4 1.43 ug/dl (5.5-11.0)
[2017-12-07] MEDS: Oxycodone/Acetaminophen 5/325 mg Tab PO PRN (06:41)
[2017-12-07] MEDS: Insulin Regular 100 units/ml SC SCH ×4 (08:00→21:23)
[2017-12-07] MEDS: Levalbuterol 0.63 MG/3 ML Inhal Soln UD INH SCH ×3 (08:03→23:50)
[2017-12-07] MEDS: diltiaZEM 180 mg/24 Hours CD Cap PO SCH (09:00)
[2017-12-07] MEDS: Enoxaparin 40 mg Syringe SC SCH (09:34)
[2017-12-07] MEDS: methIMAzole 5 MG TAB PO SCH (09:35)
[2017-12-07] MEDS ORDERED: Sodium Chloride 3% for Inhalation 4 ML VIAL.NEB IH PRN (09:35)
[2017-12-07] MEDS: Pantoprazole 40 mg EC Tab PO SCH (09:35)
[2017-12-07] MEDS: MethylPREDNISolone 40 mg Vial IVP SCH (09:35)
[2017-12-07] MEDS: THEOPHYLLINE 400 MG T24(UNIPHYL) PO SCH (09:36)
[2017-12-07] MEDS: Tiotropium 18 mcg Cap For Inhalation INH SCH (09:36)
[2017-12-07] MEDS: guaiFENesin 600 mg ER Tab PO SCH ×2 (09:36→21:24)
[2017-12-07] MEDS: Aspirin 325 mg EC Tablets PO SCH (09:37)
--- NOTE | 2017-12-07 09:40 | CP.PCM.PN ---
<Aiden Bashir - Last Filed: 12/07/17 12:44> Subjective - Subjective Subjective: Patient evaluated and examined during morning rounds in Telemetry. Seems to be making very slow progress. Cough is still congested, + thick yellow sputum. A little less dyspneic with conversation. Accuchecks are still quite high, on basal insulin. Still tachycardic Currently on Diltiazem 180 mg QD. Pharynx pink and moist w/o exudate. Neck is supple and trachea midline. Rhonchi present bilaterally, no wheezing. Scattered dry to medium rales in both lungs. Pt on nasal canula at 5 LPM; SpO2 94%, HR 115 bpm. Diltiazem increased from 180 mg QD to 240 mg QD from today. Solumedrol switched to Methylprednisone 20 mg PO QD from tomorrow. C/W theophylline and methimazole Will start patient on Bactrim PO BID, Previous bronchial washing + for stenotrophomonas maltophilia in 07/23 Sputum culture ordered: Results pending Objective - Vital Signs/Intake and Output Vital Signs (last 24 hours): Temp Pulse Resp BP Pulse Ox 97.8 F 118 H 20 140/80 96 12/07/17 08:49 12/07/17 10:47 12/07/17 08:49 12/07/17 10:47 12/07/17 08:49 - Medications Medications: Current Medications Acetaminophen (Tylenol 325mg Tab) 650 mg PO Q6 PRN PRN Reason: Pain, Mild (1-3)/headache Last Admin: 11/30/17 22:02 Dose: 650 mg Anastrozole (Arimidex 1 Mg Tab) 1 mg PO DAILY [facility] Last Admin: 12/07/17 09:45 Dose: 1 mg Aspirin (Ecotrin) 325 mg PO DAILY [facility] Last Admin: 12/07/17 09:37 Dose: 325 mg Atorvastatin Calcium (Lipitor) 40 mg PO DAILY [facility] Last Admin: 12/07/17 09:37 Dose: 40 mg Dextrose (Dextrose 50% Inj) 0 ml IV STAT PRN; Protocol PRN Reason: Hypoglycemia Protocol Dextrose (Glutose 15) 0 gm PO ONCE PRN; Protocol PRN Reason: Hypoglycemia Protocol Dicyclomine HCl (Bentyl) 10 mg PO QID PRN PRN Reason: Pain, moderate (4-7) Last Admin: 12/04/17 08:30 Dose: 10 mg Diltiazem HCl (Cardizem Cd) 240 mg PO DAILY [facility] Last Admin: 12/07/17 10:47 Dose: 240 mg Emollient Ointment (Vaseline Oint) 1 pkt TOP BID PRN PRN Reason: Dry skin Last Admin: 12/06/17 18:49 Dose: 1 pkt Enoxaparin Sodium (Lovenox) 40 mg SC DAILY [facility] PRN Reason: Protocol Last Admin: 12/07/17 09:34 Dose: 40 mg Gabapentin (Neurontin) 600 mg PO Q8 [facility] Last Admin: 12/07/17 09:35 Dose: 600 mg Glucagon (Glucagen Diagnostic Kit) 0 mg IM STAT PRN; Protocol PRN Reason: Hypoglycemia Protocol Guaifenesin (Mucinex La) 600 mg PO Q12 [facility] Last Admin: 12/07/17 09:36 Dose: 600 mg Insulin Detemir (Levemir) 12 units SC HS [facility] Last Admin: 12/06/17 21:49 Dose: 12 u Insulin Human Regular (Humulin R) 0 units SC ACHS [facility] PRN Reason: Protocol Last Admin: 12/06/17 21:48 Dose: Not Given Levalbuterol HCl (Xopenex) 0.63 mg INH RQ4 PRN PRN Reason: Shortness of Breath Last Admin: 12/06/17 19:21 Dose: 0.63 mg Levalbuterol HCl (Xopenex) 0.63 mg INH RQ8 [facility] Last Admin: 12/07/17 08:03 Dose: 0.63 mg Lidocaine (Lidoderm) 1 ea TD DAILY PRN PRN Reason: Pain, moderate (4-7) Last Admin: 11/29/17 09:38 Dose: 1 ea Methimazole (Tapazole) 5 mg PO DAILY [facility] Last Admin: 12/07/17 09:35 Dose: 5 mg Methylprednisolone (Medrol) 20 mg PO DAILY [facility] Mirtazapine (Remeron) 15 mg PO HS [facility] Last Admin: 12/06/17 21:52 Dose: 15 mg Ondansetron HCl (Zofran Inj) 4 mg IVP Q4 PRN PRN Reason: Nausea/Vomiting Last Admin: 11/13/17 19:35 Dose: 4 mg Oxycodone/Acetaminophen (Percocet 5/325 Mg Tab) 1 tab PO Q6 PRN PRN Reason: Pain, moderate (4-7) Stop: 12/08/17 05:59 Last Admin: 12/07/17 06:41 Dose: 1 tab Pantoprazole Sodium (Protonix Ec Tab) 40 mg PO DAILY [facility] Last Admin: 12/07/17 09:35 Dose: 40 mg Theophylline (Uniphyl) 400 mg PO DAILY [facility] Last Admin: 12/07/17 09:36 Dose: 400 mg Tiotropium [place] (Spiriva) 18 mcg INH DAILY [facility] Last Admin: 12/07/17 09:36 Dose: 18 mcg Trimethoprim/Sulfamethoxazole (Bactrim Ds Tab) 1 tab PO Q12 [facility] PRN Reason: Protocol Last Admin: 12/07/17 10:24 Dose: 1 tab - Labs Labs: 12/06/17 04:20 12/06/17 04:20 PT 11.1 Seconds (9.8-13.1) 11/10/17 17:32 INR 1.0 (0.9-1.2) 11/10/17 17:32 APTT 20.7 Seconds (25.6-37.1) L 11/10/17 17:32 <Bala Benz - Last Filed: 12/07/17 15:47> Subjective - Date & Time of Evaluation Date of Evaluation: 12/07/17 Time of Evaluation: 09:40 - Subjective Subjective: the patient was seen on rounds this morning with the resident. Physical findings were discussed in plan of care was formulated. I am in agreement with these findings as outlined in this note. Objective - Vital Signs/Intake and Output Vital Signs (last 24 hours): Temp Pulse Resp BP Pulse Ox 97.8 F 99 H 20 161/77 H 96 12/07/17 08:49 12/07/17 08:49 12/07/17 08:49 12/07/17 08:49 12/07/17 08:49 - Medications Medications: Current Medications Acetaminophen (Tylenol 325mg Tab) 650 mg PO Q6 PRN PRN Reason: Pain, Mild (1-3)/headache Last Admin: 11/30/17 22:02 Dose: 650 mg Anastrozole (Arimidex 1 Mg Tab) 1 mg PO DAILY [facility] Last Admin: 12/06/17 09:06 Dose: 1 mg Aspirin (Ecotrin) 325 mg PO DAILY [facility] Last Admin: 12/07/17 09:37 Dose: 325 mg Atorvastatin Calcium (Lipitor) 40 mg PO DAILY [facility] Last Admin: 12/07/17 09:37 Dose: 40 mg Dextrose (Dextrose 50% Inj) 0 ml IV STAT PRN; Protocol PRN Reason: Hypoglycemia Protocol Dextrose (Glutose 15) 0 gm PO ONCE PRN; Protocol PRN Reason: Hypoglycemia Protocol Dicyclomine HCl (Bentyl) 10 mg PO QID PRN PRN Reason: Pain, moderate (4-7) Last Admin: 12/04/17 08:30 Dose: 10 mg Diltiazem HCl (Cardizem Cd) 180 mg PO DAILY [facility] Stop: 12/08/17 09:34 Last Admin: 12/06/17 09:06 Dose: 180 mg Diltiazem HCl (Cardizem Cd) 240 mg PO DAILY [facility] Emollient Ointment (Vaseline Oint) 1 pkt TOP BID PRN PRN Reason: Dry skin Last Admin: 12/06/17 18:49 Dose: 1 pkt Enoxaparin Sodium (Lovenox) 40 mg SC DAILY [facility] PRN Reason: Protocol Last Admin: 12/07/17 09:34 Dose: 40 mg Gabapentin (Neurontin) 600 mg PO Q8 [facility] Last Admin: 12/07/17 09:35 Dose: 600 mg Glucagon (Glucagen Diagnostic Kit) 0 mg IM STAT PRN; Protocol PRN Reason: Hypoglycemia Protocol Guaifenesin (Mucinex La) 600 mg PO Q12 [facility] Last Admin: 12/07/17 09:36 Dose: 600 mg Insulin Detemir (Levemir) 12 units SC HS [facility] Last Admin: 12/06/17 21:49 Dose: 12 u Insulin Human Regular (Humulin R) 0 units SC ACHS [facility] PRN Reason: Protocol Last Admin: 12/06/17 21:48 Dose: Not Given Levalbuterol HCl (Xopenex) 0.63 mg INH RQ4 PRN PRN Reason: Shortness of Breath Last Admin: 12/06/17 19:21 Dose: 0.63 mg Levalbuterol HCl (Xopenex) 0.63 mg INH RQ8 [facility] Last Admin: 12/07/17 08:03 Dose: 0.63 mg Lidocaine (Lidoderm) 1 ea TD DAILY PRN PRN Reason: Pain, moderate (4-7) Last Admin: 11/29/17 09:38 Dose: 1 ea Methimazole (Tapazole) 5 mg PO DAILY [facility] Last Admin: 12/07/17 09:35 Dose: 5 mg Methylprednisolone (Solu-Medrol) 20 mg IVP Q12 [facility] Stop: 12/07/17 10:00 Last Admin: 12/07/17 09:35 Dose: 20 mg Methylprednisolone (Medrol) 20 mg PO DAILY [facility] Mirtazapine (Remeron) 15 mg PO HS [facility] Last Admin: 12/06/17 21:52 Dose: 15 mg Ondansetron HCl (Zofran Inj) 4 mg IVP Q4 PRN PRN Reason: Nausea/Vomiting Last Admin: 11/13/17 19:35 Dose: 4 mg Oxycodone/Acetaminophen (Percocet 5/325 Mg Tab) 1 tab PO Q6 PRN PRN Reason: Pain, moderate (4-7) Stop: 12/08/17 05:59 Last Admin: 12/07/17 06:41 Dose: 1 tab Pantoprazole Sodium (Protonix Ec Tab) 40 mg PO DAILY [facility] Last Admin: 12/07/17 09:35 Dose: 40 mg Theophylline (Uniphyl) 400 mg PO DAILY [facility] Last Admin: 12/07/17 09:36 Dose: 400 mg Tiotropium [place] (Spiriva) 18 mcg INH DAILY [facility] Last Admin: 12/07/17 09:36 Dose: 18 mcg Trimethoprim/Sulfamethoxazole (Bactrim Ds Tab) 1 tab PO Q12 [facility] PRN Reason: Protocol - Labs Labs: 12/06/17 04:20 12/06/17 04:20 PT 11.1 Seconds (9.8-13.1) 11/10/17 17:32 INR 1.0 (0.9-1.2) 11/10/17 17:32 APTT 20.7 Seconds (25.6-37.1) L 11/10/17 17:32
[2017-12-07] MEDS: Tmp-Smz 800 mg-160 mg DS Tab PO SCH ×2 (10:24→21:23)
[2017-12-07] MEDS: diltiaZEM 240 mg/24 Hours CD Cap PO SCH (10:47)
--- NOTE | 2017-12-07 12:24 | CP.PCM.PN ---
Subjective - Date & Time of Evaluation Date of Evaluation: 12/07/17 Time of Evaluation: 12:00 - Subjective Subjective: Pt feels better today OFF High Flow and is on 5 liters NC still with cough and SOB but better no fever denies CP no abd pain Still with some tachycardia nut also better Objective - Vital Signs/Intake and Output Vital Signs (last 24 hours): Temp Pulse Resp BP Pulse Ox 97.8 F 118 H 20 140/80 96 12/07/17 08:49 12/07/17 10:47 12/07/17 08:49 12/07/17 10:47 12/07/17 08:49 - Medications Medications: Current Medications Acetaminophen (Tylenol 325mg Tab) 650 mg PO Q6 PRN PRN Reason: Pain, Mild (1-3)/headache Last Admin: 11/30/17 22:02 Dose: 650 mg Anastrozole (Arimidex 1 Mg Tab) 1 mg PO DAILY [facility] Last Admin: 12/07/17 09:45 Dose: 1 mg Aspirin (Ecotrin) 325 mg PO DAILY [facility] Last Admin: 12/07/17 09:37 Dose: 325 mg Atorvastatin Calcium (Lipitor) 40 mg PO DAILY [facility] Last Admin: 12/07/17 09:37 Dose: 40 mg Dextrose (Dextrose 50% Inj) 0 ml IV STAT PRN; Protocol PRN Reason: Hypoglycemia Protocol Dextrose (Glutose 15) 0 gm PO ONCE PRN; Protocol PRN Reason: Hypoglycemia Protocol Dicyclomine HCl (Bentyl) 10 mg PO QID PRN PRN Reason: Pain, moderate (4-7) Last Admin: 12/04/17 08:30 Dose: 10 mg Diltiazem HCl (Cardizem Cd) 240 mg PO DAILY [facility] Last Admin: 12/07/17 10:47 Dose: 240 mg Emollient Ointment (Vaseline Oint) 1 pkt TOP BID PRN PRN Reason: Dry skin Last Admin: 12/06/17 18:49 Dose: 1 pkt Enoxaparin Sodium (Lovenox) 40 mg SC DAILY [facility] PRN Reason: Protocol Last Admin: 12/07/17 09:34 Dose: 40 mg Gabapentin (Neurontin) 600 mg PO Q8 [facility] Last Admin: 12/07/17 09:35 Dose: 600 mg Glucagon (Glucagen Diagnostic Kit) 0 mg IM STAT PRN; Protocol PRN Reason: Hypoglycemia Protocol Guaifenesin (Mucinex La) 600 mg PO Q12 [facility] Last Admin: 12/07/17 09:36 Dose: 600 mg Insulin Detemir (Levemir) 12 units SC HS [facility] Last Admin: 12/06/17 21:49 Dose: 12 u Insulin Human Regular (Humulin R) 0 units SC [facility] PRN Reason: Protocol Last Admin: 12/06/17 21:48 Dose: Not Given Levalbuterol HCl (Xopenex) 0.63 mg INH RQ4 PRN PRN Reason: Shortness of Breath Last Admin: 12/06/17 19:21 Dose: 0.63 mg Levalbuterol HCl (Xopenex) 0.63 mg INH RQ8 [facility] Last Admin: 12/07/17 08:03 Dose: 0.63 mg Lidocaine (Lidoderm) 1 ea TD DAILY PRN PRN Reason: Pain, moderate (4-7) Last Admin: 11/29/17 09:38 Dose: 1 ea Methimazole (Tapazole) 5 mg PO DAILY [facility] Last Admin: 12/07/17 09:35 Dose: 5 mg Methylprednisolone (Medrol) 20 mg PO DAILY [facility] Mirtazapine (Remeron) 15 mg PO HS [facility] Last Admin: 12/06/17 21:52 Dose: 15 mg Ondansetron HCl (Zofran Inj) 4 mg IVP Q4 PRN PRN Reason: Nausea/Vomiting Last Admin: 11/13/17 19:35 Dose: 4 mg Oxycodone/Acetaminophen (Percocet 5/325 Mg Tab) 1 tab PO Q6 PRN PRN Reason: Pain, moderate (4-7) Stop: 12/08/17 05:59 Last Admin: 12/07/17 06:41 Dose: 1 tab Pantoprazole Sodium (Protonix Ec Tab) 40 mg PO DAILY [facility] Last Admin: 12/07/17 09:35 Dose: 40 mg Theophylline (Uniphyl) 400 mg PO DAILY [facility] Last Admin: 12/07/17 09:36 Dose: 400 mg Tiotropium [place] (Spiriva) 18 mcg INH DAILY [facility] Last Admin: 12/07/17 09:36 Dose: 18 mcg Trimethoprim/Sulfamethoxazole (Bactrim Ds Tab) 1 tab PO Q12 [facility] PRN Reason: Protocol Last Admin: 12/07/17 10:24 Dose: 1 tab - Labs Labs: 12/06/17 04:20 12/06/17 04:20 PT 11.1 Seconds (9.8-13.1) 11/10/17 17:32 INR 1.0 (0.9-1.2) 11/10/17 17:32 APTT 20.7 Seconds (25.6-37.1) L 11/10/17 17:32 - Constitutional Appears: Chronically Ill - Head Exam Head Exam: NORMAL INSPECTION, NORMOCEPHALIC - Eye Exam Eye Exam: Normal appearance Pupil Exam: NORMAL ACCOMMODATION - ENT Exam ENT Exam: Mucous Membranes Moist, Normal External Ear Exam - Neck Exam Neck Exam: Full ROM. absent: Meningismus - Respiratory Exam Respiratory Exam: Decrease BS, Prolonged Expiratory Phase, Rales, Rhonchi No wheezing - Cardiovascular Exam Cardiovascular Exam: Tachycardia, REGULAR RHYTHM, +S1, +S2 - GI/Abdominal Exam GI & Abdominal Exam: Soft, Normal Bowel Sounds. absent: Tenderness Additional comments: abd wall hematoma - Extremities Exam Extremities Exam: Normal Capillary Refill, Pedal Edema. absent: Calf Tenderness Additional comments: right arm swelling/lymphedema - Back Exam Back Exam: absent: CVA tenderness (L), CVA tenderness (R) - Neurological Exam Neurological Exam: Alert, Awake, Oriented x3 - Psychiatric Exam Psychiatric exam: Normal Affect, Normal Mood - Skin Skin Exam: Dry, Normal Color, Warm Assessment and Plan - Assessment and Plan (Free Text) Assessment: 67 yo female with medical history including COPD, CHF, hypothyroidism, history of breast Cancer s/p mastectomy, chronic RUE lymphedema was brought into the ED because of dyspnea. Patient was then found to be in respiratory failure secondary to COPD and CHF exacerbation. Patient was admitted to ICU where she was on bipap and IV steroids and diuretics. She is now in Telemetry Patient is currently off High Flow Oxygen and placed on 5 liter NC. (1) Acute exacerbation of chronic obstructive pulmonary disease (COPD) Continue current management: - discussed with Dr. Benz continue Xopenex Q8H change steroids to PO Methyprednisolone 20 mg daily cont Oxygen 5 liter /NC (2) Hyperglycemia secondary to steroids Accucheck with coverage cont Levemir (3) Acute exacerbation of CHF (congestive heart failure) Diastolic dysfunction Continue current management: Diuretics prn Increase Cardizem 240 mg po Daily. (4) C. difficile colitis - Resolved. (5) Hyperthyroidism - discussed case with Dr Vu - TSH now normal - cont Methimazole 5mg po daily 6. HTN (hypertension) Continue current management: Diltiazem and Losartan. increased Diltiazem dose (7) Hx of breast cancer Continue current management: Arimidex. DVT prophylaxis RLE U/S negative for DVT. Continue Lovenox.
[2017-12-07] MEDS: Insulin Detemir 100 Units/ml Inj SC SCH (21:24)
--- NOTE | 2017-12-08 | PN ---
Copied To: Polly Vu MD Attending MD: Polly Vu MD DATE: 12/07/2017 ENDO FOLLOWUP NOTE LOCATIONS: [id number] SUBJECTIVE: This is a 67-year-old female with recent admission for acute exacerbation of COPD with supervening congestive heart failure and is improving clinically and hemodynamically as noted thereof. Her glycemic levels are fluctuating but much improved at this time with the intercurrent tapering dose of her IV steroids as given. Her latest glucose values have ranged from 199 to 284 mg/dL. LABORATORY DATA: Her latest chemistry showed a BUN of 20, sodium 136, potassium 4.2, chloride 98, CO2 of 34, glucose 268, and creatinine 0.5. ASSESSMENT AND PLAN: So, at this time, we will continue the basal insulin given as Levemir at 12 units subcutaneously at bedtime daily as given. She has been started back on Tapazole given as 5 mg once daily as ordered. We will obtain serial thyroid studies and adjust her dose regimen accordingly. We will obtain serial chemistries and supplement accordingly as needed. We will follow. Polly Vu MD
[2017-12-08] MEDS: Levalbuterol 0.63 MG/3 ML Inhal Soln UD INH SCH ×2 (07:34→15:04)
[2017-12-08] MEDS: Tmp-Smz 800 mg-160 mg DS Tab PO SCH ×2 (08:49→22:02)
[2017-12-08] MEDS: diltiaZEM 240 mg/24 Hours CD Cap PO SCH (08:50)
[2017-12-08] MEDS: Aspirin 325 mg EC Tablets PO SCH (08:50)
[2017-12-08] MEDS: guaiFENesin 600 mg ER Tab PO SCH ×2 (08:50→22:02)
[2017-12-08] MEDS: THEOPHYLLINE 400 MG T24(UNIPHYL) PO SCH (08:50)
[2017-12-08] MEDS: Pantoprazole 40 mg EC Tab PO SCH (08:51)
[2017-12-08] MEDS: Enoxaparin 40 mg Syringe SC SCH (08:52)
[2017-12-08] MEDS: Insulin Regular 100 units/ml SC SCH ×4 (08:52→22:04)
[2017-12-08] MEDS: Tiotropium 18 mcg Cap For Inhalation INH SCH (08:53)
[2017-12-08] MEDS: methIMAzole 5 MG TAB PO SCH (08:53)
--- NOTE | 2017-12-08 09:33 | CP.PCM.PN ---
<Aiden Bashir - Last Filed: 12/08/17 12:41> Subjective - Subjective Subjective: Patient evaluated and examined during morning rounds in Telemetry. Cough with productive sputum is present, improved from yesterday. A little less dyspneic with conversation. Still tachycardic, but vitals improved from yesterday. Currently on 5L o2 on Nasal cannula. Pharynx pink and moist w/o exudate. Neck is supple and trachea midline. Decreased breath sounds, + scattered upper lobe wheezing. Scattered dry to medium rales in both lungs. O2 on nasal cannula reduced to 4L from 5 L; SpO2 97%, HR 115 bpm. C/W Diltiazem 240 PO QD C/W theophylline and methimazole Received Methylprednisone 20 mg today, Will taper to 16 mg tomorrow. C/W Bactrim PO BID, Sputum culture Results pending C/W chest physical therapy 3-4 times/day Objective - Vital Signs/Intake and Output Vital Signs (last 24 hours): Temp Pulse Resp BP Pulse Ox 97.5 F L 93 H 20 150/49 L 97 12/08/17 08:13 12/08/17 08:50 12/08/17 08:13 12/08/17 08:50 12/08/17 08:13 Intake and Output: 12/08/17 12/08/17 06:59 18:59 Intake Total 240 Balance 240 - Medications Medications: Current Medications Acetaminophen (Tylenol 325mg Tab) 650 mg PO Q6 PRN PRN Reason: Pain, Mild (1-3)/headache Last Admin: 11/30/17 22:02 Dose: 650 mg Anastrozole (Arimidex 1 Mg Tab) 1 mg PO DAILY [facility] Last Admin: 12/08/17 08:51 Dose: 1 mg Aspirin (Ecotrin) 325 mg PO DAILY [facility] Last Admin: 12/08/17 08:50 Dose: 325 mg Atorvastatin Calcium (Lipitor) 40 mg PO DAILY [facility] Last Admin: 12/08/17 08:49 Dose: 40 mg Dextrose (Dextrose 50% Inj) 0 ml IV STAT PRN; Protocol PRN Reason: Hypoglycemia Protocol Dextrose (Glutose 15) 0 gm PO ONCE PRN; Protocol PRN Reason: Hypoglycemia Protocol Dicyclomine HCl (Bentyl) 10 mg PO QID PRN PRN Reason: Pain, moderate (4-7) Last Admin: 12/04/17 08:30 Dose: 10 mg Diltiazem HCl (Cardizem Cd) 240 mg PO DAILY [facility] Last Admin: 12/08/17 08:50 Dose: 240 mg Emollient Ointment (Vaseline Oint) 1 pkt TOP BID PRN PRN Reason: Dry skin Last Admin: 12/06/17 18:49 Dose: 1 pkt Enoxaparin Sodium (Lovenox) 40 mg SC DAILY [facility] PRN Reason: Protocol Last Admin: 12/08/17 08:52 Dose: 40 mg Gabapentin (Neurontin) 600 mg PO Q8 [facility] Last Admin: 12/08/17 08:50 Dose: 600 mg Glucagon (Glucagen Diagnostic Kit) 0 mg IM STAT PRN; Protocol PRN Reason: Hypoglycemia Protocol Guaifenesin (Mucinex La) 600 mg PO Q12 [facility] Last Admin: 12/08/17 08:50 Dose: 600 mg Insulin Detemir (Levemir) 12 units SC HS [facility] Last Admin: 12/07/17 21:24 Dose: 12 u Insulin Human Regular (Humulin R) 0 units SC ACHS [facility] PRN Reason: Protocol Last Admin: 12/08/17 08:52 Dose: Not Given Levalbuterol HCl (Xopenex) 0.63 mg INH RQ4 PRN PRN Reason: Shortness of Breath Last Admin: 12/06/17 19:21 Dose: 0.63 mg Levalbuterol HCl (Xopenex) 0.63 mg INH RQ8 [facility] Last Admin: 12/08/17 07:34 Dose: 0.63 mg Lidocaine (Lidoderm) 1 ea TD DAILY PRN PRN Reason: Pain, moderate (4-7) Last Admin: 11/29/17 09:38 Dose: 1 ea Methimazole (Tapazole) 5 mg PO DAILY [facility] Last Admin: 12/08/17 08:53 Dose: 5 mg Methylprednisolone (Medrol) 16 mg PO DAILY [facility] Mirtazapine (Remeron) 15 mg PO HS [facility] Last Admin: 12/07/17 21:25 Dose: 15 mg Ondansetron HCl (Zofran Inj) 4 mg IVP Q4 PRN PRN Reason: Nausea/Vomiting Last Admin: 11/13/17 19:35 Dose: 4 mg Pantoprazole Sodium (Protonix Ec Tab) 40 mg PO DAILY [facility] Last Admin: 12/08/17 08:51 Dose: 40 mg Theophylline (Uniphyl) 400 mg PO DAILY [facility] Last Admin: 12/08/17 08:50 Dose: 400 mg Tiotropium [place] (Spiriva) 18 mcg INH DAILY [facility] Last Admin: 12/08/17 08:53 Dose: 18 mcg Trimethoprim/Sulfamethoxazole (Bactrim Ds Tab) 1 tab PO Q12 [facility] PRN Reason: Protocol Last Admin: 12/08/17 08:49 Dose: 1 tab - Labs Labs: 12/06/17 04:20 12/06/17 04:20 PT 11.1 Seconds (9.8-13.1) 11/10/17 17:32 INR 1.0 (0.9-1.2) 11/10/17 17:32 APTT 20.7 Seconds (25.6-37.1) L 11/10/17 17:32 <Bala Benz - Last Filed: 12/08/17 14:01> Subjective - Date & Time of Evaluation Date of Evaluation: 12/08/17 Time of Evaluation: 09:33 - Subjective Subjective: Seen and examined on morning rounds with the resident. Physical findings were reviewed and a plan of care formulated. I am in agreement with the resident's note/evaluation as entered. Objective - Vital Signs/Intake and Output Vital Signs (last 24 hours): Temp Pulse Resp BP Pulse Ox 97.5 F L 93 H 20 150/49 L 97 12/08/17 08:13 12/08/17 08:50 12/08/17 08:13 12/08/17 08:50 12/08/17 08:13 Intake and Output: 12/07/17 12/08/17 23:59 11:59 Intake Total 240 Balance 240 - Medications Medications: Current Medications Acetaminophen (Tylenol 325mg Tab) 650 mg PO Q6 PRN PRN Reason: Pain, Mild (1-3)/headache Last Admin: 11/30/17 22:02 Dose: 650 mg Anastrozole (Arimidex 1 Mg Tab) 1 mg PO DAILY [facility] Last Admin: 12/08/17 08:51 Dose: 1 mg Aspirin (Ecotrin) 325 mg PO DAILY [facility] Last Admin: 12/08/17 08:50 Dose: 325 mg Atorvastatin Calcium (Lipitor) 40 mg PO DAILY [facility] Last Admin: 12/08/17 08:49 Dose: 40 mg Dextrose (Dextrose 50% Inj) 0 ml IV STAT PRN; Protocol PRN Reason: Hypoglycemia Protocol Dextrose (Glutose 15) 0 gm PO ONCE PRN; Protocol PRN Reason: Hypoglycemia Protocol Dicyclomine HCl (Bentyl) 10 mg PO QID PRN PRN Reason: Pain, moderate (4-7) Last Admin: 12/04/17 08:30 Dose: 10 mg Diltiazem HCl (Cardizem Cd) 240 mg PO DAILY [facility] Last Admin: 12/08/17 08:50 Dose: 240 mg Emollient Ointment (Vaseline Oint) 1 pkt TOP BID PRN PRN Reason: Dry skin Last Admin: 12/06/17 18:49 Dose: 1 pkt Enoxaparin Sodium (Lovenox) 40 mg SC DAILY [facility] PRN Reason: Protocol Last Admin: 12/08/17 08:52 Dose: 40 mg Gabapentin (Neurontin) 600 mg PO Q8 [facility] Last Admin: 12/08/17 08:50 Dose: 600 mg Glucagon (Glucagen Diagnostic Kit) 0 mg IM STAT PRN; Protocol PRN Reason: Hypoglycemia Protocol Guaifenesin (Mucinex La) 600 mg PO Q12 [facility] Last Admin: 12/08/17 08:50 Dose: 600 mg Insulin Detemir (Levemir) 12 units SC HS [facility] Last Admin: 12/07/17 21:24 Dose: 12 u Insulin Human Regular (Humulin R) 0 units SC ACHS [facility] PRN Reason: Protocol Last Admin: 12/08/17 08:52 Dose: Not Given Levalbuterol HCl (Xopenex) 0.63 mg INH RQ4 PRN PRN Reason: Shortness of Breath Last Admin: 12/06/17 19:21 Dose: 0.63 mg Levalbuterol HCl (Xopenex) 0.63 mg INH RQ8 [facility] Last Admin: 12/08/17 07:34 Dose: 0.63 mg Lidocaine (Lidoderm) 1 ea TD DAILY PRN PRN Reason: Pain, moderate (4-7) Last Admin: 11/29/17 09:38 Dose: 1 ea Methimazole (Tapazole) 5 mg PO DAILY [facility] Last Admin: 12/08/17 08:53 Dose: 5 mg Methylprednisolone (Medrol) 16 mg PO DAILY [facility] Mirtazapine (Remeron) 15 mg PO HS [facility] Last Admin: 12/07/17 21:25 Dose: 15 mg Ondansetron HCl (Zofran Inj) 4 mg IVP Q4 PRN PRN Reason: Nausea/Vomiting Last Admin: 11/13/17 19:35 Dose: 4 mg Pantoprazole Sodium (Protonix Ec Tab) 40 mg PO DAILY [facility] Last Admin: 12/08/17 08:51 Dose: 40 mg Theophylline (Uniphyl) 400 mg PO DAILY [facility] Last Admin: 12/08/17 08:50 Dose: 400 mg Tiotropium [place] (Spiriva) 18 mcg INH DAILY [facility] Last Admin: 12/08/17 08:53 Dose: 18 mcg Trimethoprim/Sulfamethoxazole (Bactrim Ds Tab) 1 tab PO Q12 [facility] PRN Reason: Protocol Last Admin: 12/08/17 08:49 Dose: 1 tab - Labs Labs: 12/06/17 04:20 12/06/17 04:20 PT 11.1 Seconds (9.8-13.1) 11/10/17 17:32 INR 1.0 (0.9-1.2) 11/10/17 17:32 APTT 20.7 Seconds (25.6-37.1) L 11/10/17 17:32
--- NOTE | 2017-12-08 10:04 | CP.PCM.PN ---
Subjective - Date & Time of Evaluation Date of Evaluation: 12/08/17 Time of Evaluation: 09:45 - Subjective Subjective: Feels better worked with PT yesterday and did well still with some SOB with exertion but betetr than previous days denies CP no abd pain Objective - Vital Signs/Intake and Output Vital Signs (last 24 hours): Temp Pulse Resp BP Pulse Ox 97.5 F L 93 H 20 150/49 L 97 12/08/17 08:13 12/08/17 08:50 12/08/17 08:13 12/08/17 08:50 12/08/17 08:13 Intake and Output: 12/08/17 12/08/17 06:59 18:59 Intake Total 240 Balance 240 - Medications Medications: Current Medications Acetaminophen (Tylenol 325mg Tab) 650 mg PO Q6 PRN PRN Reason: Pain, Mild (1-3)/headache Last Admin: 11/30/17 22:02 Dose: 650 mg Anastrozole (Arimidex 1 Mg Tab) 1 mg PO DAILY [facility] Last Admin: 12/08/17 08:51 Dose: 1 mg Aspirin (Ecotrin) 325 mg PO DAILY [facility] Last Admin: 12/08/17 08:50 Dose: 325 mg Atorvastatin Calcium (Lipitor) 40 mg PO DAILY [facility] Last Admin: 12/08/17 08:49 Dose: 40 mg Dextrose (Dextrose 50% Inj) 0 ml IV STAT PRN; Protocol PRN Reason: Hypoglycemia Protocol Dextrose (Glutose 15) 0 gm PO ONCE PRN; Protocol PRN Reason: Hypoglycemia Protocol Dicyclomine HCl (Bentyl) 10 mg PO QID PRN PRN Reason: Pain, moderate (4-7) Last Admin: 12/04/17 08:30 Dose: 10 mg Diltiazem HCl (Cardizem Cd) 240 mg PO DAILY [facility] Last Admin: 12/08/17 08:50 Dose: 240 mg Emollient Ointment (Vaseline Oint) 1 pkt TOP BID PRN PRN Reason: Dry skin Last Admin: 12/06/17 18:49 Dose: 1 pkt Enoxaparin Sodium (Lovenox) 40 mg SC DAILY [facility] PRN Reason: Protocol Last Admin: 12/08/17 08:52 Dose: 40 mg Gabapentin (Neurontin) 600 mg PO Q8 [facility] Last Admin: 12/08/17 08:50 Dose: 600 mg Glucagon (Glucagen Diagnostic Kit) 0 mg IM STAT PRN; Protocol PRN Reason: Hypoglycemia Protocol Guaifenesin (Mucinex La) 600 mg PO Q12 [facility] Last Admin: 12/08/17 08:50 Dose: 600 mg Insulin Detemir (Levemir) 12 units SC HS [facility] Last Admin: 12/07/17 21:24 Dose: 12 u Insulin Human Regular (Humulin R) 0 units SC ACHS [facility] PRN Reason: Protocol Last Admin: 12/08/17 08:52 Dose: Not Given Levalbuterol HCl (Xopenex) 0.63 mg INH RQ4 PRN PRN Reason: Shortness of Breath Last Admin: 12/06/17 19:21 Dose: 0.63 mg Levalbuterol HCl (Xopenex) 0.63 mg INH RQ8 [facility] Last Admin: 12/08/17 07:34 Dose: 0.63 mg Lidocaine (Lidoderm) 1 ea TD DAILY PRN PRN Reason: Pain, moderate (4-7) Last Admin: 11/29/17 09:38 Dose: 1 ea Methimazole (Tapazole) 5 mg PO DAILY [facility] Last Admin: 12/08/17 08:53 Dose: 5 mg Methylprednisolone (Medrol) 16 mg PO DAILY [facility] Mirtazapine (Remeron) 15 mg PO HS [facility] Last Admin: 12/07/17 21:25 Dose: 15 mg Ondansetron HCl (Zofran Inj) 4 mg IVP Q4 PRN PRN Reason: Nausea/Vomiting Last Admin: 11/13/17 19:35 Dose: 4 mg Pantoprazole Sodium (Protonix Ec Tab) 40 mg PO DAILY [facility] Last Admin: 12/08/17 08:51 Dose: 40 mg Theophylline (Uniphyl) 400 mg PO DAILY [facility] Last Admin: 12/08/17 08:50 Dose: 400 mg Tiotropium [place] (Spiriva) 18 mcg INH DAILY [facility] Last Admin: 12/08/17 08:53 Dose: 18 mcg Trimethoprim/Sulfamethoxazole (Bactrim Ds Tab) 1 tab PO Q12 [facility] PRN Reason: Protocol Last Admin: 12/08/17 08:49 Dose: 1 tab - Labs Labs: 12/06/17 04:20 12/06/17 04:20 PT 11.1 Seconds (9.8-13.1) 11/10/17 17:32 INR 1.0 (0.9-1.2) 11/10/17 17:32 APTT 20.7 Seconds (25.6-37.1) L 11/10/17 17:32 - Constitutional Appears: Chronically Ill - Head Exam Head Exam: NORMAL INSPECTION, NORMOCEPHALIC - Eye Exam Eye Exam: Normal appearance Pupil Exam: NORMAL ACCOMMODATION - ENT Exam ENT Exam: Mucous Membranes Moist, Normal External Ear Exam - Neck Exam Neck Exam: Full ROM. absent: Meningismus - Respiratory Exam Respiratory Exam: Decrease BS, Prolonged Expiratory Phase, Rales, Rhonchi No wheezing - Cardiovascular Exam Cardiovascular Exam: Tachycardia, REGULAR RHYTHM, +S1, +S2 - GI/Abdominal Exam GI & Abdominal Exam: Soft, Normal Bowel Sounds. absent: Tenderness Additional comments: abd wall hematoma - Extremities Exam Extremities Exam: Normal Capillary Refill, Pedal Edema. absent: Calf Tenderness Additional comments: right arm swelling/lymphedema - Back Exam Back Exam: absent: CVA tenderness (L), CVA tenderness (R) - Neurological Exam Neurological Exam: Alert, Awake, Oriented x3 - Psychiatric Exam Psychiatric exam: Normal Affect, Normal Mood - Skin Skin Exam: Dry, Normal Color, Warm Assessment and Plan - Assessment and Plan (Free Text) Assessment: 67 yo female with medical history including COPD, CHF, hypothyroidism, history of breast Cancer s/p mastectomy, chronic RUE lymphedema was brought into the ED because of dyspnea. Patient was then found to be in respiratory failure secondary to COPD and CHF exacerbation. Patient was admitted to ICU where she was on bipap and IV steroids and diuretics. She is now in Telemetry Patient is currently off High Flow Oxygen and placed on 5 liter NC. (1) Acute exacerbation of chronic obstructive pulmonary disease (COPD) Continue current management: - discussed with Dr. Benz continue Xopenex Q8H change steroids to PO Methyprednisolone 20 mg daily cont Oxygen 5 liter /NC (2) Hyperglycemia secondary to steroids Accucheck with coverage cont Levemir (3) Acute exacerbation of CHF (congestive heart failure) Diastolic dysfunction Continue current management: Diuretics prn Increase Cardizem 240 mg po Daily. (4) C. difficile colitis - Resolved. (5) Hyperthyroidism - discussed case with Dr Vu - TSH now normal - cont Methimazole 5mg po daily 6. HTN (hypertension) Continue current management: Diltiazem and Losartan. increased Diltiazem dose (7) Hx of breast cancer Continue current management: Arimidex. DVT prophylaxis RLE U/S negative for DVT. Continue Lovenox.
[2017-12-08] MEDS: Levalbuterol 0.63 MG/3 ML Inhal Soln UD INH PRN (13:32)
[2017-12-08] MEDS ORDERED: methylPREDNISolone 40 MG in Sodium Chloride 0.9% 50 ML IVPB STA (15:05)
[2017-12-08] MEDS ORDERED: MethylPREDNISolone 40 mg Vial IVP ONE (15:30)
--- NOTE | 2017-12-08 16:14 | RAD ---
Date of service: 12/08/2017 PROCEDURE: CHEST RADIOGRAPH, 1 VIEW HISTORY: SOB COMPARISON: 11/16/2017 FINDINGS: LUNGS: Clear. PLEURA: No pneumothorax or pleural fluid seen. CARDIOVASCULAR: Normal. OSSEOUS STRUCTURES: Absence of proximal right humerus noted. Absence of distal left clavicle. VISUALIZED UPPER ABDOMEN: Normal. OTHER FINDINGS: Multiple surgical clips in right axilla. IMPRESSION: No infiltrate. Absence of proximal right humerus.
--- NOTE | 2017-12-08 16:39 | CP.PCM.PN ---
Subjective - Date & Time of Evaluation Date of Evaluation: 12/06/17 Time of Evaluation: 18:30 - Subjective Subjective: no overnight events Objective - Vital Signs/Intake and Output Vital Signs (last 24 hours): Temp Pulse Resp BP Pulse Ox 98.1 F 108 H 22 118/56 L 94 L 12/08/17 15:49 12/08/17 15:49 12/08/17 15:49 12/08/17 15:49 12/08/17 15:49 Intake and Output: 12/08/17 12/08/17 06:59 18:59 Intake Total 240 Balance 240 - Medications Medications: Current Medications Acetaminophen (Tylenol 325mg Tab) 650 mg PO Q6 PRN PRN Reason: Pain, Mild (1-3)/headache Last Admin: 11/30/17 22:02 Dose: 650 mg Anastrozole (Arimidex 1 Mg Tab) 1 mg PO DAILY [facility] Last Admin: 12/08/17 08:51 Dose: 1 mg Aspirin (Ecotrin) 325 mg PO DAILY [facility] Last Admin: 12/08/17 08:50 Dose: 325 mg Atorvastatin Calcium (Lipitor) 40 mg PO DAILY [facility] Last Admin: 12/08/17 08:49 Dose: 40 mg Dextrose (Dextrose 50% Inj) 0 ml IV STAT PRN; Protocol PRN Reason: Hypoglycemia Protocol Dextrose (Glutose 15) 0 gm PO ONCE PRN; Protocol PRN Reason: Hypoglycemia Protocol Dicyclomine HCl (Bentyl) 10 mg PO QID PRN PRN Reason: Pain, moderate (4-7) Last Admin: 12/04/17 08:30 Dose: 10 mg Diltiazem HCl (Cardizem Cd) 240 mg PO DAILY [facility] Last Admin: 12/08/17 08:50 Dose: 240 mg Emollient Ointment (Vaseline Oint) 1 pkt TOP BID PRN PRN Reason: Dry skin Last Admin: 12/06/17 18:49 Dose: 1 pkt Enoxaparin Sodium (Lovenox) 40 mg SC DAILY [facility] PRN Reason: Protocol Last Admin: 12/08/17 08:52 Dose: 40 mg Gabapentin (Neurontin) 600 mg PO Q8 [facility] Last Admin: 12/08/17 15:59 Dose: 600 mg Glucagon (Glucagen Diagnostic Kit) 0 mg IM STAT PRN; Protocol PRN Reason: Hypoglycemia Protocol Guaifenesin (Mucinex La) 600 mg PO Q12 [facility] Last Admin: 12/08/17 08:50 Dose: 600 mg Insulin Detemir (Levemir) 12 units SC HS [facility] Last Admin: 12/07/17 21:24 Dose: 12 u Insulin Human Regular (Humulin R) 0 units SC [facility] PRN Reason: Protocol Last Admin: 12/08/17 12:36 Dose: Not Given Levalbuterol HCl (Xopenex) 0.63 mg INH RQ4 PRN PRN Reason: Shortness of Breath Last Admin: 12/08/17 13:32 Dose: 0.63 mg Levalbuterol HCl (Xopenex) 0.63 mg INH RQ8 [facility] Last Admin: 12/08/17 15:04 Dose: 0.63 mg Lidocaine (Lidoderm) 1 ea TD DAILY PRN PRN Reason: Pain, moderate (4-7) Last Admin: 11/29/17 09:38 Dose: 1 ea Methimazole (Tapazole) 5 mg PO DAILY [facility] Last Admin: 12/08/17 08:53 Dose: 5 mg Methylprednisolone (Medrol) 16 mg PO DAILY [facility] Mirtazapine (Remeron) 15 mg PO HS [facility] Last Admin: 12/07/17 21:25 Dose: 15 mg Ondansetron HCl (Zofran Inj) 4 mg IVP Q4 PRN PRN Reason: Nausea/Vomiting Last Admin: 11/13/17 19:35 Dose: 4 mg Pantoprazole Sodium (Protonix Ec Tab) 40 mg PO DAILY [facility] Last Admin: 12/08/17 08:51 Dose: 40 mg Theophylline (Uniphyl) 400 mg PO DAILY [facility] Last Admin: 12/08/17 08:50 Dose: 400 mg Tiotropium [place] (Spiriva) 18 mcg INH DAILY [facility] Last Admin: 12/08/17 08:53 Dose: 18 mcg Trimethoprim/Sulfamethoxazole (Bactrim Ds Tab) 1 tab PO Q12 [facility] PRN Reason: Protocol Last Admin: 12/08/17 08:49 Dose: 1 tab - Labs Labs: 12/06/17 04:20 12/06/17 04:20 PT 11.1 Seconds (9.8-13.1) 11/10/17 17:32 INR 1.0 (0.9-1.2) 11/10/17 17:32 APTT 20.7 Seconds (25.6-37.1) L 11/10/17 17:32 - Head Exam Head Exam: NORMOCEPHALIC - Neck Exam Neck Exam: Normal Inspection - Respiratory Exam Respiratory Exam: Rhonchi - Cardiovascular Exam Cardiovascular Exam: REGULAR RHYTHM - GI/Abdominal Exam GI & Abdominal Exam: Soft, Normal Bowel Sounds Assessment and Plan - Assessment and Plan (Free Text) Assessment: 67 yo female with cdiff no diarrhea doing well pulm input appreciated
[2017-12-08] MEDS ORDERED: Insulin Detemir 100 Units/ml Inj SC SCH (22:00)
--- NOTE | 2017-12-08 22:15 | PN ---
Copied To: Polly Vu MD Attending MD: Polly Vu MD DATE: 12/08/2017 ENDO FOLLOWUP NOTE LOCATION: Room 408 SUBJECTIVE: This is a 67-year-old female with recent admission for congestive heart failure and supervening COPD exacerbation, currently on a tapering IV steroid dosing as noted and is being followed closely for metabolic management. Her glycemic levels are fluctuating but much improved at this time and the latest glucoses have ranged from 115 to 134 mg/dL. ASSESSMENT AND PLAN: So, at this time, we will modify once again her basal insulin and lower the Levemir to 6 units subcu at bedtime daily to start tonight. We will titrate incrementally as indicated to optimize metabolic control. We will also continue the low-dose Tapazole given for management of hyperthyroidism as noted. We will obtain serial thyroid studies and titrate her dose regimen accordingly. We will follow. Polly Vu MD
[2017-12-09] MEDS: Levalbuterol 0.63 MG/3 ML Inhal Soln UD INH SCH ×4 (00:21→15:24)
[2017-12-09 05:33] LABS: HEMOGLOBIN 10.4 g/dL (12.0-16.0); MEAN CELL VOLUME 89.7 fl (81.0-99.0); MEAN CORPUSCULAR HEMOGLOBIN 28.9 pg (27.0-31.0); MEAN CORPUSCULAR HGB CONC 32.3 g/dL (33.0-37.0); RBC 3.6 Mil/uL (3.80-5.20); RED CELL DISTRIBUTION WIDTH 20.3 % (11.5-14.5); WHITE BLOOD COUNT 9.4 K/uL (4.8-10.8)
[2017-12-09 05:46] LABS: BLOOD UREA NITROGEN 26 mg/dl (7-17); CALCIUM 8.4 mg/dL (8.4-10.2); GFR NON-AFRICAN AMERICAN > 60
[2017-12-09] MEDS: Insulin Regular 100 units/ml SC SCH ×5 (06:18→22:14)
--- NOTE | 2017-12-09 08:25 | CARD ---
APPROVED REPORT Date of service: 12/08/2017 <Conclusion> Sinus rhythm with short OK Cannot rule out Anterior infarct, age undetermined T wave abnormality, consider lateral ischemia Abnormal ECG
[2017-12-09] MEDS: Tmp-Smz 800 mg-160 mg DS Tab PO SCH ×2 (08:27→22:14)
[2017-12-09] MEDS: Tiotropium 18 mcg Cap For Inhalation INH SCH (08:27)
[2017-12-09] MEDS: guaiFENesin 600 mg ER Tab PO SCH ×2 (08:27→22:14)
[2017-12-09] MEDS: THEOPHYLLINE 400 MG T24(UNIPHYL) PO SCH (08:27)
[2017-12-09] MEDS: methIMAzole 5 MG TAB PO SCH (08:27)
[2017-12-09] MEDS: Aspirin 325 mg EC Tablets PO SCH (08:28)
[2017-12-09] MEDS: Pantoprazole 40 mg EC Tab PO SCH (08:28)
[2017-12-09] MEDS: Enoxaparin 40 mg Syringe SC SCH (08:32)
[2017-12-09] MEDS: diltiaZEM 240 mg/24 Hours CD Cap PO SCH (08:36)
--- NOTE | 2017-12-09 09:58 | CP.PCM.PN ---
Subjective - Date & Time of Evaluation Date of Evaluation: 12/09/17 Time of Evaluation: 08:45 - Subjective Subjective: Pt had episode of severe SOB yesterday - she was put back on High Flow Oxygen at present pt feels better denies CP no SOB no abd pain + Nosebleeding last night- held am Lovenox Objective - Vital Signs/Intake and Output Vital Signs (last 24 hours): Temp Pulse Resp BP Pulse Ox 97.9 F 102 H 20 122/72 99 12/09/17 08:04 12/09/17 08:36 12/09/17 08:04 12/09/17 08:36 12/09/17 08:04 Intake and Output: 12/09/17 12/09/17 06:59 18:59 Intake Total 240 Balance 240 - Medications Medications: Current Medications Acetaminophen (Tylenol 325mg Tab) 650 mg PO Q6 PRN PRN Reason: Pain, Mild (1-3)/headache Last Admin: 11/30/17 22:02 Dose: 650 mg Anastrozole (Arimidex 1 Mg Tab) 1 mg PO DAILY [facility] Last Admin: 12/09/17 08:27 Dose: 1 mg Aspirin (Ecotrin) 325 mg PO DAILY [facility] Last Admin: 12/09/17 08:28 Dose: 325 mg Atorvastatin Calcium (Lipitor) 40 mg PO DAILY [facility] Last Admin: 12/09/17 08:28 Dose: 40 mg Dextrose (Dextrose 50% Inj) 0 ml IV STAT PRN; Protocol PRN Reason: Hypoglycemia Protocol Dextrose (Glutose 15) 0 gm PO ONCE PRN; Protocol PRN Reason: Hypoglycemia Protocol Dicyclomine HCl (Bentyl) 10 mg PO QID PRN PRN Reason: Pain, moderate (4-7) Last Admin: 12/04/17 08:30 Dose: 10 mg Diltiazem HCl (Cardizem Cd) 240 mg PO DAILY [facility] Last Admin: 12/09/17 08:36 Dose: 240 mg Emollient Ointment (Vaseline Oint) 1 pkt TOP BID PRN PRN Reason: Dry skin Last Admin: 12/06/17 18:49 Dose: 1 pkt Enoxaparin Sodium (Lovenox) 40 mg SC DAILY [facility] PRN Reason: Protocol Last Admin: 12/09/17 08:32 Dose: Not Given Gabapentin (Neurontin) 600 mg PO Q8 [facility] Last Admin: 12/09/17 08:27 Dose: 600 mg Glucagon (Glucagen Diagnostic Kit) 0 mg IM STAT PRN; Protocol PRN Reason: Hypoglycemia Protocol Guaifenesin (Mucinex La) 600 mg PO Q12 [facility] Last Admin: 12/09/17 08:27 Dose: 600 mg Insulin Detemir (Levemir) 6 units SC HS [facility] Last Admin: 12/08/17 22:03 Dose: 6 units Insulin Human Regular (Humulin R) 0 units SC ACHS [facility] PRN Reason: Protocol Last Admin: 12/09/17 07:23 Dose: 6 units Levalbuterol HCl (Xopenex) 0.63 mg INH RQ4 PRN PRN Reason: Shortness of Breath Last Admin: 12/08/17 13:32 Dose: 0.63 mg Levalbuterol HCl (Xopenex) 0.63 mg INH RQ8 [facility] Last Admin: 12/09/17 07:54 Dose: 0.63 mg Lidocaine (Lidoderm) 1 ea TD DAILY PRN PRN Reason: Pain, moderate (4-7) Last Admin: 11/29/17 09:38 Dose: 1 ea Methimazole (Tapazole) 5 mg PO DAILY [facility] Last Admin: 12/09/17 08:27 Dose: 5 mg Methylprednisolone (Medrol) 16 mg PO DAILY [facility] Last Admin: 12/09/17 08:27 Dose: 16 mg Mirtazapine (Remeron) 15 mg PO HS [facility] Last Admin: 12/08/17 22:02 Dose: 15 mg Ondansetron HCl (Zofran Inj) 4 mg IVP Q4 PRN PRN Reason: Nausea/Vomiting Last Admin: 11/13/17 19:35 Dose: 4 mg Pantoprazole Sodium (Protonix Ec Tab) 40 mg PO DAILY [facility] Last Admin: 12/09/17 08:28 Dose: 40 mg Theophylline (Uniphyl) 400 mg PO DAILY [facility] Last Admin: 12/09/17 08:27 Dose: 400 mg Tiotropium [place] (Spiriva) 18 mcg INH DAILY [facility] Last Admin: 12/09/17 08:27 Dose: 18 mcg Trimethoprim/Sulfamethoxazole (Bactrim Ds Tab) 1 tab PO Q12 [facility] PRN Reason: Protocol Last Admin: 12/09/17 08:27 Dose: 1 tab - Labs Labs: 12/09/17 05:23 08/03/18 05:23 PT 11.1 Seconds (9.8-13.1) 11/10/17 17:32 INR 1.0 (0.9-1.2) 11/10/17 17:32 APTT 20.7 Seconds (25.6-37.1) L 11/10/17 17:32 - Constitutional Appears: Chronically Ill - Head Exam Head Exam: NORMAL INSPECTION, NORMOCEPHALIC - Eye Exam Eye Exam: Normal appearance Pupil Exam: NORMAL ACCOMMODATION - ENT Exam ENT Exam: Mucous Membranes Moist, Normal External Ear Exam - Neck Exam Neck Exam: Full ROM. absent: Meningismus - Respiratory Exam Respiratory Exam: Decrease BS, Prolonged Expiratory Phase, Rales, Rhonchi No wheezing - Cardiovascular Exam Cardiovascular Exam: Tachycardia, REGULAR RHYTHM, +S1, +S2 - GI/Abdominal Exam GI & Abdominal Exam: Soft, Normal Bowel Sounds. absent: Tenderness Additional comments: abd wall hematoma - Extremities Exam Extremities Exam: Normal Capillary Refill, Pedal Edema. absent: Calf Tenderness Additional comments: right arm swelling/lymphedema - Back Exam Back Exam: absent: CVA tenderness (L), CVA tenderness (R) - Neurological Exam Neurological Exam: Alert, Awake, Oriented x3 - Psychiatric Exam Psychiatric exam: Normal Affect, Normal Mood - Skin Skin Exam: Dry, Normal Color, Warm Assessment and Plan - Assessment and Plan (Free Text) Assessment: 67 yo female with medical history including COPD, CHF, hypothyroidism, history of breast Cancer s/p mastectomy, chronic RUE lymphedema was brought into the ED because of dyspnea. Patient was then found to be in respiratory failure secondary to COPD and CHF exacerbation. Patient was admitted to ICU where she was on bipap and IV steroids and diuretics. She is now in Telemetry Patient is currently off High Flow Oxygen and placed on 5 liter NC. (1) Acute exacerbation of chronic obstructive pulmonary disease (COPD) - pt had worsening of symptoms last night - had to put her back on High Flow Oxygen, stat dose of Solumedrol 40 mg IV given continue Xopenex Q8H cont PO Methyprednisolone 16 mg daily cont Bactrim and Theophylline ABG done - will decrease High flow to 20L/40% FiO2 CT of chest - ruled out PE (2) DM type II with Hyperglycemia secondary to steroids Accucheck with coverage cont Levemir (3) Acute exacerbation of CHF (congestive heart failure) Diastolic dysfunction Continue current management: Diuretics prn Increased Cardizem 240 mg po Daily. (4) C. difficile colitis - Resolved. (5) Hyperthyroidism - discussed case with Dr Vu - TSH now normal - cont Methimazole 5mg po daily 6. HTN (hypertension) Continue current management: Diltiazem and Losartan. increased Diltiazem dose (7) Hx of breast cancer Continue current management: Arimidex. DVT prophylaxis RLE U/S negative for DVT. Continue Lovenox.
[2017-12-09 11:33] LABS: ABG ALLEN TEST YES; ARTERIAL BLOOD GAS HCO3 34.1 mmol/L (21-28); ARTERIAL BLOOD GAS HEMOGLOBIN 10.8 g/dL (11.7-17.4); ARTERIAL BLOOD GAS O2 CAPACITY 14.7 mL/dL (16-24); ARTERIAL BLOOD GAS O2 CONTENT 14.6 ML/dL (15-23); ARTERIAL BLOOD GAS O2 SAT 99.1 % (95-98); ARTERIAL BLOOD GAS PCO2 51 mm/Hg (35-45); ARTERIAL BLOOD GAS PH 7.47 (7.35-7.45); ARTERIAL BLOOD GAS PO2 95 mm/Hg (80-100); ARTERIAL BLOOD GAS TCO2 38.7 mmol/L (22-28)
--- NOTE | 2017-12-09 13:11 | CP.PCM.PN ---
<Aiden Bashir - Last Filed: 12/09/17 19:41> Subjective - Subjective Subjective: Patient evaluated and examined during morning rounds in Telemetry. Patient had an episode of SOB possibly due to COPD exacerbation yesterday, Stat dose of Solumedrol 40 mg IV given, Troponins x 1 negative She also had nose bleed yesterday. Lovenox dose on hold Patient still congested, Cough present but she can't get it out. A still dyspneic with conversation. Still tachycardic, but vitals improved from yesterday. Currently on 20L O2 on high flow nasal cannula. Pharynx pink and moist w/o exudate. Neck is supple and trachea midline. Decreased breath sounds, + scattered upper lobe wheezing. Scattered dry to medium rales in both lungs. Pt on 20L/40% FiO2 on high flow nasal cannula. SpO2 96%, HR 114 bpm. SOB possibly secondary to COPD exacerbation. Will rule out PE. CXR from yesterday reviewed is consistent with L lower lobe congestion. Will order CT angio of chest for further evaluation. Received Methylprednisone 16 mg today Continue Xopenex Q8hr, Will add mucomist. Xanax 0.25 Q8prn for anxiety. C/W chest physical therapy 3-4 times/day Objective - Vital Signs/Intake and Output Vital Signs (last 24 hours): Temp Pulse Resp BP Pulse Ox 98.2 F 103 H 22 133/55 L 99 12/09/17 16:00 12/09/17 16:00 12/09/17 17:06 12/09/17 16:00 12/09/17 16:00 - Medications Medications: Current Medications Acetaminophen (Tylenol 325mg Tab) 650 mg PO Q6 PRN PRN Reason: Pain, Mild (1-3)/headache Last Admin: 11/30/17 22:02 Dose: 650 mg Acetylcysteine (Acetylcysteine 20%) 2 ml INH RBID [facility] Alprazolam (Xanax) 0.25 mg PO Q8 PRN PRN Reason: Anxiety Stop: 12/16/17 10:27 Last Admin: 12/09/17 14:23 Dose: 0.25 mg Anastrozole (Arimidex 1 Mg Tab) 1 mg PO DAILY [facility] Last Admin: 12/09/17 08:27 Dose: 1 mg Aspirin (Ecotrin) 325 mg PO DAILY [facility] Last Admin: 12/09/17 08:28 Dose: 325 mg Atorvastatin Calcium (Lipitor) 40 mg PO DAILY [facility] Last Admin: 12/09/17 08:28 Dose: 40 mg Dextrose (Dextrose 50% Inj) 0 ml IV STAT PRN; Protocol PRN Reason: Hypoglycemia Protocol Dextrose (Glutose 15) 0 gm PO ONCE PRN; Protocol PRN Reason: Hypoglycemia Protocol Dicyclomine HCl (Bentyl) 10 mg PO QID PRN PRN Reason: Pain, moderate (4-7) Last Admin: 12/04/17 08:30 Dose: 10 mg Diltiazem HCl (Cardizem Cd) 240 mg PO DAILY [facility] Last Admin: 12/09/17 08:36 Dose: 240 mg Emollient Ointment (Vaseline Oint) 1 pkt TOP BID PRN PRN Reason: Dry skin Last Admin: 12/06/17 18:49 Dose: 1 pkt Enoxaparin Sodium (Lovenox) 40 mg SC DAILY [facility] PRN Reason: Protocol Last Admin: 12/09/17 08:32 Dose: Not Given Gabapentin (Neurontin) 600 mg PO Q8 [facility] Last Admin: 12/09/17 16:20 Dose: 600 mg Glipizide (Glucotrol) 5 mg PO ACBD [facility] Last Admin: 12/09/17 16:19 Dose: 5 mg Glucagon (Glucagen Diagnostic Kit) 0 mg IM STAT PRN; Protocol PRN Reason: Hypoglycemia Protocol Guaifenesin (Mucinex La) 600 mg PO Q12 [facility] Last Admin: 12/09/17 08:27 Dose: 600 mg Insulin Detemir (Levemir) 12 units SC HS [facility] Insulin Human Regular (Humulin R) 0 units SC ACHS [facility] PRN Reason: Protocol Last Admin: 12/09/17 16:23 Dose: 2 units Levalbuterol HCl (Xopenex) 0.63 mg INH RQ4 PRN PRN Reason: Shortness of Breath Last Admin: 12/08/17 13:32 Dose: 0.63 mg Levalbuterol HCl (Xopenex) 0.63 mg INH RQ8 [facility] Last Admin: 12/09/17 15:24 Dose: 0.63 mg Lidocaine (Lidoderm) 1 ea TD DAILY PRN PRN Reason: Pain, moderate (4-7) Last Admin: 11/29/17 09:38 Dose: 1 ea Methimazole (Tapazole) 5 mg PO DAILY [facility] Last Admin: 12/09/17 08:27 Dose: 5 mg Methylprednisolone (Medrol) 16 mg PO DAILY [facility] Last Admin: 12/09/17 08:27 Dose: 16 mg Mirtazapine (Remeron) 15 mg PO HS [facility] Last Admin: 12/08/17 22:02 Dose: 15 mg Ondansetron HCl (Zofran Inj) 4 mg IVP Q4 PRN PRN Reason: Nausea/Vomiting Last Admin: 11/13/17 19:35 Dose: 4 mg Pantoprazole Sodium (Protonix Ec Tab) 40 mg PO DAILY [facility] Last Admin: 12/09/17 08:28 Dose: 40 mg Theophylline (Uniphyl) 400 mg PO DAILY [facility] Last Admin: 12/09/17 08:27 Dose: 400 mg Tiotropium [place] (Spiriva) 18 mcg INH DAILY [facility] Last Admin: 12/09/17 08:27 Dose: 18 mcg Trimethoprim/Sulfamethoxazole (Bactrim Ds Tab) 1 tab PO Q12 [facility] PRN Reason: Protocol Last Admin: 12/09/17 08:27 Dose: 1 tab - Labs Labs: 12/09/17 05:23 12/09/17 05:23 PT 11.1 Seconds (9.8-13.1) 11/10/17 17:32 INR 1.0 (0.9-1.2) 11/10/17 17:32 APTT 20.7 Seconds (25.6-37.1) L 11/10/17 17:32 <Bala Benz - Last Filed: 12/10/17 08:25> Subjective - Date & Time of Evaluation Date of Evaluation: 12/09/17 Time of Evaluation: 13:11 - Subjective Subjective: The patient was seen together with the residents on rounds and telemetry. Recent events and physical findings were reviewed and discussed in detail. Plan of care was formulated and agreed upon. I am in agreement with the resident's findings as noted in EMR. Objective - Vital Signs/Intake and Output Vital Signs (last 24 hours): Temp Pulse Resp BP Pulse Ox 97.9 F 102 H 20 122/72 99 12/09/17 08:04 12/09/17 08:36 12/09/17 08:04 12/09/17 08:36 12/09/17 08:04 - Medications Medications: Current Medications Acetaminophen (Tylenol 325mg Tab) 650 mg PO Q6 PRN PRN Reason: Pain, Mild (1-3)/headache Last Admin: 11/30/17 22:02 Dose: 650 mg Acetylcysteine (Acetylcysteine 20%) 2 ml INH RBID [facility] Alprazolam (Xanax) 0.25 mg PO Q8 PRN PRN Reason: Anxiety Stop: 12/16/17 10:27 Anastrozole (Arimidex 1 Mg Tab) 1 mg PO DAILY [facility] Last Admin: 12/09/17 08:27 Dose: 1 mg Aspirin (Ecotrin) 325 mg PO DAILY [facility] Last Admin: 12/09/17 08:28 Dose: 325 mg Atorvastatin Calcium (Lipitor) 40 mg PO DAILY [facility] Last Admin: 12/09/17 08:28 Dose: 40 mg Dextrose (Dextrose 50% Inj) 0 ml IV STAT PRN; Protocol PRN Reason: Hypoglycemia Protocol Dextrose (Glutose 15) 0 gm PO ONCE PRN; Protocol PRN Reason: Hypoglycemia Protocol Dicyclomine HCl (Bentyl) 10 mg PO QID PRN PRN Reason: Pain, moderate (4-7) Last Admin: 12/04/17 08:30 Dose: 10 mg Diltiazem HCl (Cardizem Cd) 240 mg PO DAILY [facility] Last Admin: 12/09/17 08:36 Dose: 240 mg Emollient Ointment (Vaseline Oint) 1 pkt TOP BID PRN PRN Reason: Dry skin Last Admin: 12/06/17 18:49 Dose: 1 pkt Enoxaparin Sodium (Lovenox) 40 mg SC DAILY [facility] PRN Reason: Protocol Last Admin: 12/09/17 08:32 Dose: Not Given Gabapentin (Neurontin) 600 mg PO Q8 [facility] Last Admin: 12/09/17 08:27 Dose: 600 mg Glucagon (Glucagen Diagnostic Kit) 0 mg IM STAT PRN; Protocol PRN Reason: Hypoglycemia Protocol Guaifenesin (Mucinex La) 600 mg PO Q12 [facility] Last Admin: 12/09/17 08:27 Dose: 600 mg Insulin Detemir (Levemir) 6 units SC HS [facility] Last Admin: 12/08/17 22:03 Dose: 6 units Insulin Human Regular (Humulin R) 0 units SC ACHS [facility] PRN Reason: Protocol Last Admin: 12/09/17 11:57 Dose: 3 units Levalbuterol HCl (Xopenex) 0.63 mg INH RQ4 PRN PRN Reason: Shortness of Breath Last Admin: 12/08/17 13:32 Dose: 0.63 mg Levalbuterol HCl (Xopenex) 0.63 mg INH RQ8 [facility] Last Admin: 12/09/17 07:54 Dose: 0.63 mg Lidocaine (Lidoderm) 1 ea TD DAILY PRN PRN Reason: Pain, moderate (4-7) Last Admin: 11/29/17 09:38 Dose: 1 ea Methimazole (Tapazole) 5 mg PO DAILY [facility] Last Admin: 12/09/17 08:27 Dose: 5 mg Methylprednisolone (Medrol) 16 mg PO DAILY [facility] Last Admin: 12/09/17 08:27 Dose: 16 mg Mirtazapine (Remeron) 15 mg PO HS [facility] Last Admin: 12/08/17 22:02 Dose: 15 mg Ondansetron HCl (Zofran Inj) 4 mg IVP Q4 PRN PRN Reason: Nausea/Vomiting Last Admin: 11/13/17 19:35 Dose: 4 mg Pantoprazole Sodium (Protonix Ec Tab) 40 mg PO DAILY [facility] Last Admin: 12/09/17 08:28 Dose: 40 mg Theophylline (Uniphyl) 400 mg PO DAILY [facility] Last Admin: 12/09/17 08:27 Dose: 400 mg Tiotropium [place] (Spiriva) 18 mcg INH DAILY [facility] Last Admin: 12/09/17 08:27 Dose: 18 mcg Trimethoprim/Sulfamethoxazole (Bactrim Ds Tab) 1 tab PO Q12 [facility] PRN Reason: Protocol Last Admin: 12/09/17 08:27 Dose: 1 tab - Labs Labs: 12/09/17 05:23 12/09/17 05:23 PT 11.1 Seconds (9.8-13.1) 11/10/17 17:32 INR 1.0 (0.9-1.2) 11/10/17 17:32 APTT 20.7 Seconds (25.6-37.1) L 11/10/17 17:32
[2017-12-09] MEDS ORDERED: Iodixanol 320 MG/ML 100 ML BOTTLE IV ONE (14:20)
[2017-12-09] MEDS ORDERED: Sodium Chloride 0.9% 50 ML IV ONE (14:20)
--- NOTE | 2017-12-09 16:07 | CT ---
Date of service: 12/09/2017 PROCEDURE: CT Chest with contrast (Pulmonary Angiogram) HISTORY: SOB COMPARISON: None available. TECHNIQUE: Axial computed tomography images were obtained of the chest in the pulmonary arterial phase of enhancement. Coronal and sagittal reformatted images were created and reviewed. Maximum intensity projection (MIP) reconstructed images in the following planes: Axial only. Intravenous contrast dose: 75 cc Visipaque 320. Mean Hounsfield unit values in the main pulmonary artery: 215.69 Radiation dose: Total exam DLP = 331.43 mGy-cm. This CT exam was performed using one or more of the following dose reduction techniques: Automated exposure control, adjustment of the mA and/or kV according to patient size, and/or use of iterative reconstruction technique. FINDINGS: PULMONARY ARTERIES: Unremarkable. No pulmonary embolism. AORTA: No acute findings. No thoracic aortic aneurysm. LUNGS: Unremarkable. No nodule, mass or pulmonary consolidation. PLEURAL SPACES: Unremarkable. No effusion or pneumothorax. HEART: Unremarkable. No cardiomegaly. No significant pericardial effusion. LYMPH NODES: No lymphadenopathy. BONES, CHEST WALL: Multilevel degenerative changes. No fracture or destructive lesion OTHER FINDINGS: Intrathoracic extension of an enlarged left thyroid gland. Cyst left hepatic lobe a finding better visualized on CT the abdomen pelvis performed 11/17/2017. IMPRESSION: No central or large pulmonary emboli. Limitations of the current examination: Both qualitative and quantitative assessment of opacification of the pulmonary arteries precludes meaningful assessment beyond the segmental branch for pulmonary embolic disease.
--- NOTE | 2017-12-09 17:24 | PN ---
Copied To: Polly Vu MD Attending MD: Polly Vu MD DATE: 12/09/2017 ENDO FOLLOWUP NOTE LOCATION: In room 408. SUBJECTIVE: This is a 67-year-old female with recent acute exacerbation of COPD with supervening congestive heart failure and is clinically and hemodynamically improving as noted thereof. Her glycemic levels are fluctuating at this time, ranging from 209 to 337 mg/dL. LABORATORY DATA: Her latest chemistry showed a BUN of 26, sodium 135, potassium 4.5, chloride 95, CO2 of 33, glucose 332, and creatinine 0.5. ASSESSMENT AND PLAN: So at this time, we will modify once again her basal insulin and increase the Levemir to 12 units subcutaneously at bedtime daily to start tonight. We will titrate incrementally as indicated to optimize metabolic control. We will continue the low-dose correction scale using regular insulin as given. We will also be adding glipizide given as 5 mg b.i.d. before meals to start today. We will titrate incrementally as indicated to optimize metabolic control. We will obtain serial chemistries and supplement accordingly as needed. We will follow. Polly Vu MD
[2017-12-09] MEDS: Acetylcysteine 20% Inhal Soln (4ml) INH SCH (19:33)
[2017-12-09] MEDS: Levalbuterol 0.63 MG/3 ML Inhal Soln UD INH PRN (19:33)
[2017-12-09] MEDS ORDERED: Insulin Detemir 100 Units/ml Inj SC SCH (22:00)
[2017-12-10] MEDS: Levalbuterol 0.63 MG/3 ML Inhal Soln UD INH SCH ×4 (00:14→23:31)
[2017-12-10] MEDS: Acetylcysteine 20% Inhal Soln (4ml) INH SCH ×2 (07:50→19:41)
[2017-12-10] MEDS: Tiotropium 18 mcg Cap For Inhalation INH SCH (08:08)
[2017-12-10] MEDS: diltiaZEM 240 mg/24 Hours CD Cap PO SCH (08:09)
[2017-12-10] MEDS: Aspirin 325 mg EC Tablets PO SCH (08:09)
[2017-12-10] MEDS: guaiFENesin 600 mg ER Tab PO SCH ×2 (08:11→22:08)
[2017-12-10] MEDS: THEOPHYLLINE 400 MG T24(UNIPHYL) PO SCH (08:11)
[2017-12-10] MEDS: Tmp-Smz 800 mg-160 mg DS Tab PO SCH ×2 (08:11→22:07)
[2017-12-10] MEDS: methIMAzole 5 MG TAB PO SCH (08:12)
[2017-12-10] MEDS: Insulin Regular 100 units/ml SC SCH ×4 (08:13→22:08)
[2017-12-10] MEDS: Pantoprazole 40 mg EC Tab PO SCH (08:14)
--- NOTE | 2017-12-10 11:10 | CP.PCM.PN ---
Subjective - Date & Time of Evaluation Date of Evaluation: 12/10/17 Time of Evaluation: 09:30 - Subjective Subjective: Remains on High Flow Oxygen Slept better last night no further nosebleed at present pt feels better denies CP no SOB no abd pain Objective - Vital Signs/Intake and Output Vital Signs (last 24 hours): Temp Pulse Resp BP Pulse Ox 97.8 F 89 20 149/71 96 12/10/17 07:50 12/10/17 08:09 12/10/17 07:51 12/10/17 08:09 12/10/17 07:50 - Medications Medications: Current Medications Acetaminophen (Tylenol 325mg Tab) 650 mg PO Q6 PRN PRN Reason: Pain, Mild (1-3)/headache Last Admin: 12/10/17 01:38 Dose: 650 mg Acetylcysteine (Acetylcysteine 20%) 2 ml INH RBID [facility] Last Admin: 12/10/17 07:50 Dose: 2 ml Alprazolam (Xanax) 0.25 mg PO Q8 PRN PRN Reason: Anxiety Stop: 12/16/17 10:27 Last Admin: 12/09/17 22:15 Dose: 0.25 mg Anastrozole (Arimidex 1 Mg Tab) 1 mg PO DAILY [facility] Last Admin: 12/10/17 08:15 Dose: 1 mg Aspirin (Ecotrin) 325 mg PO DAILY [facility] Last Admin: 12/10/17 08:09 Dose: 325 mg Atorvastatin Calcium (Lipitor) 40 mg PO DAILY [facility] Last Admin: 12/10/17 08:10 Dose: 40 mg Dextrose (Dextrose 50% Inj) 0 ml IV STAT PRN; Protocol PRN Reason: Hypoglycemia Protocol Dextrose (Glutose 15) 0 gm PO ONCE PRN; Protocol PRN Reason: Hypoglycemia Protocol Dicyclomine HCl (Bentyl) 10 mg PO QID PRN PRN Reason: Pain, moderate (4-7) Last Admin: 12/04/17 08:30 Dose: 10 mg Diltiazem HCl (Cardizem Cd) 240 mg PO DAILY [facility] Last Admin: 12/10/17 08:09 Dose: 240 mg Emollient Ointment (Vaseline Oint) 1 pkt TOP BID PRN PRN Reason: Dry skin Last Admin: 12/06/17 18:49 Dose: 1 pkt Enoxaparin Sodium (Lovenox) 40 mg SC DAILY [facility] PRN Reason: Protocol Last Admin: 12/09/17 08:32 Dose: Not Given Gabapentin (Neurontin) 600 mg PO Q8 [facility] Last Admin: 12/10/17 08:10 Dose: 600 mg Glipizide (Glucotrol) 5 mg PO ACBD [facility] Last Admin: 12/10/17 08:11 Dose: 5 mg Glucagon (Glucagen Diagnostic Kit) 0 mg IM STAT PRN; Protocol PRN Reason: Hypoglycemia Protocol Guaifenesin (Mucinex La) 600 mg PO Q12 [facility] Last Admin: 12/10/17 08:11 Dose: 600 mg Insulin Detemir (Levemir) 16 units SC HS [facility] Insulin Human Regular (Humulin R) 0 units SC ACHS [facility] PRN Reason: Protocol Last Admin: 12/10/17 08:13 Dose: 2 units Levalbuterol HCl (Xopenex) 0.63 mg INH RQ4 PRN PRN Reason: Shortness of Breath Last Admin: 12/09/17 19:33 Dose: 0.63 mg Levalbuterol HCl (Xopenex) 0.63 mg INH RQ8 [facility] Last Admin: 12/10/17 07:50 Dose: 0.63 mg Lidocaine (Lidoderm) 1 ea TD DAILY PRN PRN Reason: Pain, moderate (4-7) Last Admin: 11/29/17 09:38 Dose: 1 ea Methimazole (Tapazole) 5 mg PO DAILY [facility] Last Admin: 12/10/17 08:12 Dose: 5 mg Methylprednisolone (Medrol) 16 mg PO DAILY [facility] Last Admin: 12/10/17 08:11 Dose: 16 mg Mirtazapine (Remeron) 15 mg PO HS [facility] Last Admin: 12/09/17 22:14 Dose: 15 mg Ondansetron HCl (Zofran Inj) 4 mg IVP Q4 PRN PRN Reason: Nausea/Vomiting Last Admin: 11/13/17 19:35 Dose: 4 mg Pantoprazole Sodium (Protonix Ec Tab) 40 mg PO DAILY [facility] Last Admin: 12/10/17 08:14 Dose: 40 mg Theophylline (Uniphyl) 400 mg PO DAILY [facility] Last Admin: 12/10/17 08:11 Dose: 400 mg Tiotropium [place] (Spiriva) 18 mcg INH DAILY [facility] Last Admin: 12/10/17 08:08 Dose: 18 mcg Trimethoprim/Sulfamethoxazole (Bactrim Ds Tab) 1 tab PO Q12 [facility] PRN Reason: Protocol Last Admin: 12/10/17 08:11 Dose: 1 tab - Labs Labs: 12/09/17 05:23 18 05:23 PT 11.1 Seconds (9.8-13.1) 11/10/17 17:32 INR 1.0 (0.9-1.2) 11/10/17 17:32 APTT 20.7 Seconds (25.6-37.1) L 11/10/17 17:32 - Constitutional Appears: Chronically Ill - Head Exam Head Exam: NORMAL INSPECTION, NORMOCEPHALIC - Eye Exam Eye Exam: Normal appearance Pupil Exam: NORMAL ACCOMMODATION - ENT Exam ENT Exam: Mucous Membranes Moist, Normal External Ear Exam - Neck Exam Neck Exam: Full ROM. absent: Meningismus - Respiratory Exam Respiratory Exam: Decrease BS, Prolonged Expiratory Phase, Rales, Rhonchi No wheezing - Cardiovascular Exam Cardiovascular Exam: Tachycardia, REGULAR RHYTHM, +S1, +S2 - GI/Abdominal Exam GI & Abdominal Exam: Soft, Normal Bowel Sounds. absent: Tenderness Additional comments: abd wall hematoma - Extremities Exam Extremities Exam: Normal Capillary Refill, Pedal Edema. absent: Calf Tenderness Additional comments: right arm swelling/lymphedema - Back Exam Back Exam: absent: CVA tenderness (L), CVA tenderness (R) - Neurological Exam Neurological Exam: Alert, Awake, Oriented x3 - Psychiatric Exam Psychiatric exam: Normal Affect, Normal Mood - Skin Skin Exam: Dry, Normal Color, Warm Assessment and Plan - Assessment and Plan (Free Text) Assessment: 67 yo female with medical history including COPD, CHF, hypothyroidism, history of breast Cancer s/p mastectomy, chronic RUE lymphedema was brought into the ED because of dyspnea. Patient was then found to be in respiratory failure secondary to COPD and CHF exacerbation. Patient was admitted to ICU where she was on bipap and IV steroids and diuretics. She is now in Telemetry At present - on High Flow Oxygen at 30L /40% (1) Acute exacerbation of chronic obstructive pulmonary disease (COPD) - pt had worsening of symptoms the other night - had to put her back on High Flow Oxygen, stat dose of Solumedrol 40 mg IV given continue Xopenex Q8H cont PO Methyprednisolone 16 mg daily cont Bactrim and Theophylline CT of chest - ruled out PE (2) DM type II with Hyperglycemia secondary to steroids Accucheck with coverage cont Levemir (3) Acute exacerbation of CHF (congestive heart failure) Diastolic dysfunction Continue current management: Diuretics prn Increased Cardizem 240 mg po Daily. (4) C. difficile colitis - Resolved. (5) Hyperthyroidism - discussed case with Dr Vu - TSH now normal - cont Methimazole 5mg po daily 6. HTN (hypertension) Continue current management: Diltiazem and Losartan. increased Diltiazem dose (7) Hx of breast cancer Continue current management: Arimidex. DVT prophylaxis RLE U/S negative for DVT. Nosebleed resolved - restart Lovenox in am
--- NOTE | 2017-12-10 12:03 | CP.PCM.PN ---
Subjective - Date & Time of Evaluation Date of Evaluation: 12/10/17 Time of Evaluation: 12:03 - Subjective Subjective: The patient was seen on rounds in telemetry in the morning. She claims to feel well but does appear more dyspneic once again, even with conversation. She does have a congested cough which sounds loose, but is unable to expectorate. She denies any chest pain. Her vital signs are stable and she remains afebrile. She has been placed back on high flow nasal cannula because of an episode yesterday with the abrupt onset of shortness of breath and increased tachycardia. CT chest with contrast for pulmonary embolism was negative. There were no pleural effusion or areas of consolidation. She was temporarily placed on standard nasal cannula this morning at 5 L/m with SpO2 dropping to 88. She was placed back on high flow nasal cannula at 30 L/m and 40% oxygen. The pharynx is pink and mucous membranes are moist. No exudate is seen. The neck is supple and trachea is midline. No neck vein distention is noted. There is no dullness on chest percussion. Accessory muscle recruitment is noted. Breath sounds are present bilaterally, diminished equally in both lungs. There is no audible wheezing but the expiratory phase is prolonged. Sonorous rhonchi are appreciated dependent zones of both lungs, more so left than right. Few scattered medium rales are appreciated bilaterally in dependent areas. Heart sounds are distant and the rhythm is regular, tachycardic at 100 bpm. Abdomen is soft and nontender with normal bowel sounds. There is trace pendant edema without cyanosis. We'll continue using oral antibiotic therapy in the form of BACTRIM empirically. Will not reduce dosage of oral corticosteroids today. Maintained on high flow nasal cannula with clear flow increased to 30 and continued O2 supplementation at 40%. All other medications will continue unchanged as well. Objective - Vital Signs/Intake and Output Vital Signs (last 24 hours): Temp Pulse Resp BP Pulse Ox 97.8 F 89 20 149/71 96 12/10/17 07:50 12/10/17 08:09 12/10/17 07:51 12/10/17 08:09 12/10/17 07:50 - Medications Medications: Current Medications Acetaminophen (Tylenol 325mg Tab) 650 mg PO Q6 PRN PRN Reason: Pain, Mild (1-3)/headache Last Admin: 12/10/17 01:38 Dose: 650 mg Acetylcysteine (Acetylcysteine 20%) 2 ml INH RBID [facility] Last Admin: 12/10/17 07:50 Dose: 2 ml Alprazolam (Xanax) 0.25 mg PO Q8 PRN PRN Reason: Anxiety Stop: 12/16/17 10:27 Last Admin: 12/09/17 22:15 Dose: 0.25 mg Anastrozole (Arimidex 1 Mg Tab) 1 mg PO DAILY [facility] Last Admin: 12/10/17 08:15 Dose: 1 mg Aspirin (Ecotrin) 325 mg PO DAILY [facility] Last Admin: 12/10/17 08:09 Dose: 325 mg Atorvastatin Calcium (Lipitor) 40 mg PO DAILY [facility] Last Admin: 12/10/17 08:10 Dose: 40 mg Dextrose (Dextrose 50% Inj) 0 ml IV STAT PRN; Protocol PRN Reason: Hypoglycemia Protocol Dextrose (Glutose 15) 0 gm PO ONCE PRN; Protocol PRN Reason: Hypoglycemia Protocol Dicyclomine HCl (Bentyl) 10 mg PO QID PRN PRN Reason: Pain, moderate (4-7) Last Admin: 12/04/17 08:30 Dose: 10 mg Diltiazem HCl (Cardizem Cd) 240 mg PO DAILY [facility] Last Admin: 12/10/17 08:09 Dose: 240 mg Emollient Ointment (Vaseline Oint) 1 pkt TOP BID PRN PRN Reason: Dry skin Last Admin: 12/06/17 18:49 Dose: 1 pkt Enoxaparin Sodium (Lovenox) 40 mg SC DAILY [facility] PRN Reason: Protocol Last Admin: 12/09/17 08:32 Dose: Not Given Gabapentin (Neurontin) 600 mg PO Q8 [facility] Last Admin: 12/10/17 08:10 Dose: 600 mg Glipizide (Glucotrol) 5 mg PO ACBD [facility] Last Admin: 12/10/17 08:11 Dose: 5 mg Glucagon (Glucagen Diagnostic Kit) 0 mg IM STAT PRN; Protocol PRN Reason: Hypoglycemia Protocol Guaifenesin (Mucinex La) 600 mg PO Q12 [facility] Last Admin: 12/10/17 08:11 Dose: 600 mg Insulin Detemir (Levemir) 16 units SC HS [facility] Insulin Human Regular (Humulin R) 0 units SC ACHS [facility] PRN Reason: Protocol Last Admin: 12/10/17 08:13 Dose: 2 units Levalbuterol HCl (Xopenex) 0.63 mg INH RQ4 PRN PRN Reason: Shortness of Breath Last Admin: 12/09/17 19:33 Dose: 0.63 mg Levalbuterol HCl (Xopenex) 0.63 mg INH RQ8 [facility] Last Admin: 12/10/17 07:50 Dose: 0.63 mg Lidocaine (Lidoderm) 1 ea TD DAILY PRN PRN Reason: Pain, moderate (4-7) Last Admin: 11/29/17 09:38 Dose: 1 ea Methimazole (Tapazole) 5 mg PO DAILY [facility] Last Admin: 12/10/17 08:12 Dose: 5 mg Methylprednisolone (Medrol) 16 mg PO DAILY [facility] Last Admin: 12/10/17 08:11 Dose: 16 mg Mirtazapine (Remeron) 15 mg PO HS [facility] Last Admin: 12/09/17 22:14 Dose: 15 mg Ondansetron HCl (Zofran Inj) 4 mg IVP Q4 PRN PRN Reason: Nausea/Vomiting Last Admin: 11/13/17 19:35 Dose: 4 mg Pantoprazole Sodium (Protonix Ec Tab) 40 mg PO DAILY [facility] Last Admin: 12/10/17 08:14 Dose: 40 mg Theophylline (Uniphyl) 400 mg PO DAILY [facility] Last Admin: 12/10/17 08:11 Dose: 400 mg Tiotropium [place] (Spiriva) 18 mcg INH DAILY [facility] Last Admin: 12/10/17 08:08 Dose: 18 mcg Trimethoprim/Sulfamethoxazole (Bactrim Ds Tab) 1 tab PO Q12 [facility] PRN Reason: Protocol Last Admin: 12/10/17 08:11 Dose: 1 tab - Labs Labs: 12/09/17 05:23 12/09/17 05:23 PT 11.1 Seconds (9.8-13.1) 11/10/17 17:32 INR 1.0 (0.9-1.2) 11/10/17 17:32 APTT 20.7 Seconds (25.6-37.1) L 11/10/17 17:32
--- NOTE | 2017-12-10 16:37 | PN ---
Copied To: Polly Vu MD Attending MD: Polly Vu MD DATE: 12/10/2017 ENDO FOLLOWUP NOTE LOCATION: Room 408. SUBJECTIVE: This is a 67-year-old female with recent admission for acute exacerbation of COPD with supervening congestive heart failure and is improving clinically and hemodynamically as noted thereof. Her glycemic levels are fluctuating but much improved at this time, and the glucose values have ranged from 189 to 218 mg/dL. Her chemistry showed a BUN of 26, sodium 135, potassium 4.5, chloride 95, CO2 of 33, glucose 332, and creatinine 0.5. Her IV steroid dosing is currently at 16 mg given now orally daily as noted. So at this time, we will continue the oral hypoglycemic therapy as reordered, glipizide at 5 mg b.i.d. as given. We will continue the Levemir at a higher dosing of 16 units subcu at bedtime daily as given. We will also continue the Tapazole given as 5 mg daily as ordered. We will obtain serial chemistries and supplement accordingly as needed. We will follow. Polly Vu MD
[2017-12-10] MEDS: Levalbuterol 0.63 MG/3 ML Inhal Soln UD INH PRN (19:41)
[2017-12-10] MEDS: Insulin Detemir 100 Units/ml Inj SC SCH (22:07)
[2017-12-11] MEDS: Acetylcysteine 20% Inhal Soln (4ml) INH SCH ×2 (07:55→19:36)
[2017-12-11] MEDS: Levalbuterol 0.63 MG/3 ML Inhal Soln UD INH SCH ×3 (07:55→23:55)
[2017-12-11] MEDS: Insulin Regular 100 units/ml SC SCH ×5 (08:45→21:51)
[2017-12-11] MEDS: methIMAzole 5 MG TAB PO SCH (08:50)
[2017-12-11] MEDS: THEOPHYLLINE 400 MG T24(UNIPHYL) PO SCH (08:50)
[2017-12-11] MEDS: guaiFENesin 600 mg ER Tab PO SCH ×2 (08:50→21:46)
[2017-12-11] MEDS: diltiaZEM 240 mg/24 Hours CD Cap PO SCH (08:51)
[2017-12-11] MEDS: Tiotropium 18 mcg Cap For Inhalation INH SCH (08:51)
[2017-12-11] MEDS: Aspirin 325 mg EC Tablets PO SCH (08:52)
[2017-12-11] MEDS: Tmp-Smz 800 mg-160 mg DS Tab PO SCH ×2 (08:52→21:45)
[2017-12-11] MEDS: Pantoprazole 40 mg EC Tab PO SCH (08:52)
--- NOTE | 2017-12-11 10:17 | CP.PCM.PN ---
Subjective - Date & Time of Evaluation Date of Evaluation: 12/11/17 Time of Evaluation: 09:00 - Subjective Subjective: Patient seen and examined today. She states that yesterday she had increased shortness of breath and was placed back on high flow nasal cannula. Today she states that her breathing is easier but still c/o chest congestion. No other new complaints. No further nosebleeds. Objective - Vital Signs/Intake and Output Vital Signs (last 24 hours): Temp Pulse Resp BP Pulse Ox 97.6 F 96 H 18 127/67 96 12/11/17 08:07 12/11/17 08:51 12/11/17 08:07 12/11/17 08:51 12/11/17 08:07 - Medications Medications: Current Medications Acetaminophen (Tylenol 325mg Tab) 650 mg PO Q6 PRN PRN Reason: Pain, Mild (1-3)/headache Last Admin: 12/11/17 06:09 Dose: 650 mg Acetylcysteine (Acetylcysteine 20%) 2 ml INH RBID [facility] Last Admin: 12/11/17 07:55 Dose: 2 ml Alprazolam (Xanax) 0.25 mg PO Q8 PRN PRN Reason: Anxiety Stop: 12/16/17 10:27 Last Admin: 12/10/17 22:08 Dose: 0.25 mg Anastrozole (Arimidex 1 Mg Tab) 1 mg PO DAILY [facility] Last Admin: 12/11/17 08:53 Dose: 1 mg Aspirin (Ecotrin) 325 mg PO DAILY [facility] Last Admin: 12/11/17 08:52 Dose: 325 mg Atorvastatin Calcium (Lipitor) 40 mg PO DAILY [facility] Last Admin: 12/10/17 08:10 Dose: 40 mg Dextrose (Dextrose 50% Inj) 0 ml IV STAT PRN; Protocol PRN Reason: Hypoglycemia Protocol Dextrose (Glutose 15) 0 gm PO ONCE PRN; Protocol PRN Reason: Hypoglycemia Protocol Dicyclomine HCl (Bentyl) 10 mg PO QID PRN PRN Reason: Pain, moderate (4-7) Last Admin: 12/04/17 08:30 Dose: 10 mg Diltiazem HCl (Cardizem Cd) 240 mg PO DAILY [facility] Last Admin: 12/11/17 08:51 Dose: 240 mg Emollient Ointment (Vaseline Oint) 1 pkt TOP BID PRN PRN Reason: Dry skin Last Admin: 12/06/17 18:49 Dose: 1 pkt Enoxaparin Sodium (Lovenox) 40 mg SC DAILY [facility] PRN Reason: Protocol Last Admin: 12/09/17 08:32 Dose: Not Given Gabapentin (Neurontin) 600 mg PO Q8 [facility] Last Admin: 12/11/17 08:50 Dose: 600 mg Glipizide (Glucotrol) 5 mg PO ACBD [facility] Last Admin: 12/11/17 08:52 Dose: 5 mg Glucagon (Glucagen Diagnostic Kit) 0 mg IM STAT PRN; Protocol PRN Reason: Hypoglycemia Protocol Guaifenesin (Mucinex La) 600 mg PO Q12 [facility] Last Admin: 12/11/17 08:50 Dose: 600 mg Insulin Detemir (Levemir) 16 units SC HS [facility] Last Admin: 12/10/17 22:07 Dose: 16 units Insulin Human Regular (Humulin R) 0 units SC ACHS [facility] PRN Reason: Protocol Last Admin: 12/11/17 08:45 Dose: Not Given Levalbuterol HCl (Xopenex) 0.63 mg INH RQ4 PRN PRN Reason: Shortness of Breath Last Admin: 12/10/17 19:41 Dose: 0.63 mg Levalbuterol HCl (Xopenex) 0.63 mg INH RQ8 [facility] Last Admin: 12/11/17 07:55 Dose: 0.63 mg Lidocaine (Lidoderm) 1 ea TD DAILY PRN PRN Reason: Pain, moderate (4-7) Last Admin: 11/29/17 09:38 Dose: 1 ea Methimazole (Tapazole) 5 mg PO DAILY [facility] Last Admin: 12/11/17 08:50 Dose: 5 mg Methylprednisolone (Medrol) 16 mg PO DAILY [facility] Last Admin: 12/11/17 08:51 Dose: 16 mg Mirtazapine (Remeron) 15 mg PO HS [facility] Last Admin: 12/10/17 22:08 Dose: 15 mg Ondansetron HCl (Zofran Inj) 4 mg IVP Q4 PRN PRN Reason: Nausea/Vomiting Last Admin: 11/13/17 19:35 Dose: 4 mg Pantoprazole Sodium (Protonix Ec Tab) 40 mg PO DAILY [facility] Last Admin: 12/11/17 08:52 Dose: 40 mg Theophylline (Uniphyl) 400 mg PO DAILY [facility] Last Admin: 12/11/17 08:50 Dose: 400 mg Tiotropium [place] (Spiriva) 18 mcg INH DAILY [facility] Last Admin: 12/11/17 08:51 Dose: 18 mcg Trimethoprim/Sulfamethoxazole (Bactrim Ds Tab) 1 tab PO Q12 [facility] PRN Reason: Protocol Last Admin: 12/11/17 08:52 Dose: 1 tab - Labs Labs: 12/09/17 05:23 12/09/17 05:23 PT 11.1 Seconds (9.8-13.1) 11/10/17 17:32 INR 1.0 (0.9-1.2) 11/10/17 17:32 APTT 20.7 Seconds (25.6-37.1) L 11/10/17 17:32 - Additional Findings Additional findings: Physical exam: Constitutional- cooperative, awake, alert Head- NCAT, PERRL, on High Flow oxygen Eye- PERRL, EOMI ENT- normal exam, MMM. Neck- normal inspection, supple, no JVD Respiratory- CTAB, scattered rales bilaterally. Rhonchi appreciated bilaterally in all lung corral, left more than right. Cardiovascular- RRR, +S1, +S2 no MRG GI/Abdominal- normal bowel sounds, soft, no mass, no hsm Skin- warm, dry Extremities Exam- normal capillary refill, +1 pitting edema bilateral lower extremities Neurological Exam- alert, awake, oriented Psych- normal mood, normal affect Assessment and Plan - Assessment and Plan (Free Text) Plan: 67 yo female with medical history including COPD, CHF, hypothyroidism, history of breast Cancer s/p mastectomy, chronic RUE lymphedema was brought into the ED because of dyspnea. Patient was then found to be in respiratory failure secondary to COPD and CHF exacerbation. Patient was admitted to ICU where she was on bipap and IV steroids and diuretics. She is now in Telemetry At present - on High Flow Oxygen at 30L /40% (1) Acute exacerbation of chronic obstructive pulmonary disease (COPD) - pt had worsening of symptoms the other night - had to put her back on High Flow Oxygen, stat dose of Solumedrol 40 mg IV given continue Xopenex Q8H cont PO Methyprednisolone 16 mg daily cont Bactrim po and Theophylline CT of chest - ruled out PE (2) DM type II with Hyperglycemia secondary to steroids Accucheck with coverage cont Levemir (3) Acute exacerbation of CHF (congestive heart failure) Diastolic dysfunction Continue current management: Diuretics prn Increased Cardizem 240 mg po Daily. (4) C. difficile colitis - Resolved. (5) Hyperthyroidism - discussed case with Dr Vu - TSH now normal - cont Methimazole 5mg po daily 6. HTN (hypertension) Continue current management: Diltiazem and Losartan. increased Diltiazem dose (7) Hx of breast cancer Continue current management: Arimidex. DVT prophylaxis RLE U/S negative for DVT. Nosebleed resolved - Lovenox restarted.
[2017-12-11] MEDS: Enoxaparin 40 mg Syringe SC SCH (10:32)
[2017-12-11] MEDS: Levalbuterol 0.63 MG/3 ML Inhal Soln UD INH PRN (19:36)
[2017-12-11 20:47] LABS: INR 0.9; PROTHROMBIN TIME 10.3 Seconds (9.8-13.1)
[2017-12-11 20:50] LABS: PARTIAL THROMBOPLASTIN TIME 27.5 Seconds (25.6-37.1)
[2017-12-11] MEDS: Insulin Detemir 100 Units/ml Inj SC SCH (21:47)
--- NOTE | 2017-12-12 04:13 | PN ---
Copied To: Polly Vu MD Attending MD: Polly Vu MD DATE: 12/11/2017 LOCATION: Room 408. SUBJECTIVE: This is a 67-year-old female with recent uncontrolled type 2 insulin-requiring diabetes with intercurrent IV steroid therapy given as a tapering dose and is now being followed closely for metabolic management. Her glycemic levels are fluctuating but much improved at this time and the glucose values have ranged from 127-129 and 218 mg/dL. Her latest chemistry showed a BUN of 26, sodium 135, potassium 4.5, chloride 95, CO2 of 33, glucose 332, and creatinine 0.5. We will discontinue her basal insulin given as Levemir at 16 units subcu at bedtime daily as given. We will continue the glipizide given as 5 mg b.i.d. before meals as ordered. We will also continue the Tapazole given as 5 mg once daily as ordered. We will obtain serial chemistries and supplement accordingly as needed. We will also obtain serum thyroid studies and titrate her dose regimen accordingly. We will modify the coverage scale of her regular insulin to obviate hypoglycemia, and detailed orders have been given. We will obtain serial chemistries and supplement accordingly as needed. We will follow. Polly Vu MD
[2017-12-12 05:30] LABS: HEMOGLOBIN 9.8 g/dL (12.0-16.0); MEAN CELL VOLUME 90.6 fl (81.0-99.0); MEAN CORPUSCULAR HEMOGLOBIN 29.7 pg (27.0-31.0); MEAN CORPUSCULAR HGB CONC 32.8 g/dL (33.0-37.0); RBC 3.28 Mil/uL (3.80-5.20); RED CELL DISTRIBUTION WIDTH 20.8 % (11.5-14.5); WHITE BLOOD COUNT 9.3 K/uL (4.8-10.8)
[2017-12-12 05:40] LABS: ALB/GLOB RATIO 1.4 (1.0-2.1); ALBUMIN 2.9 g/dL (3.5-5.0); ALT/SGPT 42 U/L (9-52); AST/SGOT 21 U/L (14-36); BLOOD UREA NITROGEN 27 mg/dl (7-17); CALCIUM 8.7 mg/dL (8.4-10.2); GFR NON-AFRICAN AMERICAN > 60
[2017-12-12 05:49] LABS: T4 1.86 ug/dl (5.5-11.0)
[2017-12-12] MEDS: Acetylcysteine 20% Inhal Soln (4ml) INH SCH ×2 (07:46→19:34)
[2017-12-12] MEDS: Tiotropium 18 mcg Cap For Inhalation INH SCH (08:43)
[2017-12-12] MEDS: Aspirin 325 mg EC Tablets PO SCH (08:44)
[2017-12-12] MEDS: Tmp-Smz 800 mg-160 mg DS Tab PO SCH ×2 (08:44→21:32)
[2017-12-12] MEDS: methIMAzole 5 MG TAB PO SCH (08:44)
[2017-12-12] MEDS: guaiFENesin 600 mg ER Tab PO SCH ×2 (08:45→21:31)
[2017-12-12] MEDS: diltiaZEM 240 mg/24 Hours CD Cap PO SCH (08:46)
[2017-12-12] MEDS: Pantoprazole 40 mg EC Tab PO SCH (08:46)
[2017-12-12] MEDS: THEOPHYLLINE 400 MG T24(UNIPHYL) PO SCH (08:46)
[2017-12-12] MEDS: Levalbuterol 0.63 MG/3 ML Inhal Soln UD INH SCH ×3 (08:46→15:41)
[2017-12-12] MEDS: Insulin Regular 100 units/ml SC SCH ×3 (08:47→16:37)
--- NOTE | 2017-12-12 11:32 | CP.PCM.PN ---
Subjective - Date & Time of Evaluation Date of Evaluation: 12/12/17 Time of Evaluation: 10:30 - Subjective Subjective: Pt has no fever feels less SOB compared to previous days denies CP no abd pain Remains of High Flow Oxygen at 30L/40% FiO2 Objective - Vital Signs/Intake and Output Vital Signs (last 24 hours): Temp Pulse Resp BP Pulse Ox 98.2 F 90 18 114/59 L 95 12/12/17 08:00 12/12/17 08:46 12/12/17 08:00 12/12/17 08:46 12/12/17 08:00 - Medications Medications: Current Medications Acetaminophen (Tylenol 325mg Tab) 650 mg PO Q6 PRN PRN Reason: Pain, Mild (1-3)/headache Last Admin: 12/12/17 04:25 Dose: 650 mg Acetylcysteine (Acetylcysteine 20%) 2 ml INH RBID [facility] Last Admin: 12/12/17 07:46 Dose: 2 ml Alprazolam (Xanax) 0.25 mg PO Q8 PRN PRN Reason: Anxiety Stop: 12/16/17 10:27 Last Admin: 12/10/17 22:08 Dose: 0.25 mg Anastrozole (Arimidex 1 Mg Tab) 1 mg PO DAILY [facility] Last Admin: 12/12/17 08:45 Dose: 1 mg Aspirin (Ecotrin) 325 mg PO DAILY [facility] Last Admin: 12/12/17 08:44 Dose: 325 mg Atorvastatin Calcium (Lipitor) 40 mg PO HS [facility] Last Admin: 12/11/17 21:46 Dose: 40 mg Dextrose (Dextrose 50% Inj) 0 ml IV STAT PRN; Protocol PRN Reason: Hypoglycemia Protocol Dextrose (Glutose 15) 0 gm PO ONCE PRN; Protocol PRN Reason: Hypoglycemia Protocol Dicyclomine HCl (Bentyl) 10 mg PO QID PRN PRN Reason: Pain, moderate (4-7) Last Admin: 12/04/17 08:30 Dose: 10 mg Diltiazem HCl (Cardizem Cd) 240 mg PO DAILY [facility] Last Admin: 12/12/17 08:46 Dose: 240 mg Emollient Ointment (Vaseline Oint) 1 pkt TOP BID PRN PRN Reason: Dry skin Last Admin: 12/06/17 18:49 Dose: 1 pkt Gabapentin (Neurontin) 600 mg PO Q8 [facility] Last Admin: 12/12/17 08:45 Dose: 600 mg Glipizide (Glucotrol) 5 mg PO ACBD [facility] Last Admin: 12/12/17 08:46 Dose: 5 mg Glucagon (Glucagen Diagnostic Kit) 0 mg IM STAT PRN; Protocol PRN Reason: Hypoglycemia Protocol Guaifenesin (Mucinex La) 600 mg PO Q12 [facility] Last Admin: 12/12/17 08:45 Dose: 600 mg Insulin Human Regular (Humulin R) 0 units SC ACHS [facility] PRN Reason: Protocol Last Admin: 12/12/17 08:47 Dose: Not Given Levalbuterol HCl (Xopenex) 0.63 mg INH RQ4 PRN PRN Reason: Shortness of Breath Last Admin: 12/11/17 19:36 Dose: 0.63 mg Levalbuterol HCl (Xopenex) 0.63 mg INH RQ8 [facility] Last Admin: 12/12/17 08:46 Dose: 0.63 mg Lidocaine (Lidoderm) 1 ea TD DAILY PRN PRN Reason: Pain, moderate (4-7) Last Admin: 11/29/17 09:38 Dose: 1 ea Methimazole (Tapazole) 5 mg PO DAILY [facility] Last Admin: 12/12/17 08:44 Dose: 5 mg Methylprednisolone (Medrol) 16 mg PO DAILY [facility] Last Admin: 12/12/17 08:45 Dose: 16 mg Mirtazapine (Remeron) 15 mg PO HS [facility] Last Admin: 12/11/17 21:46 Dose: 15 mg Ondansetron HCl (Zofran Inj) 4 mg IVP Q4 PRN PRN Reason: Nausea/Vomiting Last Admin: 11/13/17 19:35 Dose: 4 mg Pantoprazole Sodium (Protonix Ec Tab) 40 mg PO DAILY [facility] Last Admin: 12/12/17 08:46 Dose: 40 mg Theophylline (Uniphyl) 400 mg PO DAILY [facility] Last Admin: 12/12/17 08:46 Dose: 400 mg Tiotropium [place] (Spiriva) 18 mcg INH DAILY [facility] Last Admin: 12/12/17 08:43 Dose: 18 mcg Trimethoprim/Sulfamethoxazole (Bactrim Ds Tab) 1 tab PO Q12 [facility] PRN Reason: Protocol Last Admin: 12/12/17 08:44 Dose: 1 tab - Labs Labs: 12/12/17 04:20 12/12/17 04:20 PT 10.3 Seconds (9.8-13.1) 12/11/17 20:08 INR 0.9 12/11/17 20:08 APTT 27.5 Seconds (25.6-37.1) 12/11/17 20:08 - Constitutional Appears: Chronically Ill - Head Exam Head Exam: NORMAL INSPECTION, NORMOCEPHALIC - Eye Exam Eye Exam: Normal appearance Pupil Exam: NORMAL ACCOMMODATION - ENT Exam ENT Exam: Mucous Membranes Moist, Normal External Ear Exam - Neck Exam Neck Exam: Full ROM. absent: Meningismus - Respiratory Exam Respiratory Exam: Decrease BS, Prolonged Expiratory Phase, coarse Rales, Rhonchi No wheezing - Cardiovascular Exam Cardiovascular Exam: Tachycardia, REGULAR RHYTHM, +S1, +S2 - GI/Abdominal Exam GI & Abdominal Exam: Soft, Normal Bowel Sounds. absent: Tenderness Additional comments: abd wall hematoma - Extremities Exam Extremities Exam: Normal Capillary Refill, Pedal Edema. absent: Calf Tenderness Additional comments: right arm swelling/lymphedema - Back Exam Back Exam: absent: CVA tenderness (L), CVA tenderness (R) - Neurological Exam Neurological Exam: Alert, Awake, Oriented x3 - Psychiatric Exam Psychiatric exam: Normal Affect, Normal Mood - Skin Skin Exam: Dry, Normal Color, Warm Assessment and Plan - Assessment and Plan (Free Text) Assessment: 67 yo female with medical history including COPD, CHF, hypothyroidism, history of breast Cancer s/p mastectomy, chronic RUE lymphedema was brought into the ED because of dyspnea. Patient was then found to be in respiratory failure secondary to COPD and CHF exacerbation. Patient was admitted to ICU where she was on bipap and IV steroids and diuretics. She is now in Telemetry At present - on High Flow Oxygen at 30L /40% (1) Acute exacerbation of chronic obstructive pulmonary disease (COPD) - cont Nebulizer tx RTC with Xopenex cont PO Methyprednisolone 16 mg daily cont Bactrim and Theophylline CT of chest - ruled out PE (2) DM type II with Hyperglycemia secondary to steroids Accucheck with coverage cont Levemir (3) Acute exacerbation of CHF (congestive heart failure) Diastolic dysfunction Continue current management: Diuretics prn cont Cardizem 240 mg po Daily. (4) C. difficile colitis - Resolved. (5) Hyperthyroidism - discussed case with Dr Vu - TSH now normal - cont Methimazole 5mg po daily 6. HTN (hypertension) Continue current management: Diltiazem and Losartan. increased Diltiazem dose (7) Hx of breast cancer Continue current management: Arimidex. DVT prophylaxis RLE U/S negative for DVT. Nosebleed - Hold Lovenox for now, decrease ASA to 81 mg daily
--- NOTE | 2017-12-12 11:55 | CP.PCM.PN ---
<Aiden Bashir - Last Filed: 12/12/17 13:04> Subjective - Date & Time of Evaluation Date of Evaluation: 12/12/17 Time of Evaluation: 09:25 - Subjective Subjective: Patient evaluated and examined during morning rounds in Telemetry. Patient seems dyspneic while sitting in bed, even more with conversation. She does have a congested cough which sounds loose, but is unable to expectorate. She denies any chest pain. Her vital signs are stable and she remains afebrile. She has been placed back on high flow nasal cannula because of an episode with the abrupt onset of shortness of breath and increased tachycardia. CT chest with contrast for pulmonary embolism was negative. There were no pleural effusion or areas of consolidation. Patient currently on high flow nasal cannula at 30 L/m and 40% oxygen. SPO2 86% and HR 104 Patient had another episode of nose bleed yesterday. Lovenox on hold The pharynx is pink and mucous membranes are moist. No exudate is seen. The neck is supple and trachea is midline. No neck vein distention is noted. Breath sounds are present bilaterally, diminished equally in both lungs. There is no audible wheezing but the expiratory phase is prolonged. Sonorous rhonchi are appreciated dependent zones of both lungs, more so left than right. Few scattered medium rales are appreciated bilaterally in dependent areas. Heart sounds are distant and the rhythm is regular, tachycardic at 100 bpm. There is trace pendant edema without cyanosis. Maintained on high flow nasal cannula with clear flow increased to 30 and continued O2 supplementation at 40%. We'll continue using oral antibiotic therapy in the form of BACTRIM empirically. Will not reduce dosage of oral corticosteroids today. All other medications will continue unchanged as well. Objective - Vital Signs/Intake and Output Vital Signs (last 24 hours): Temp Pulse Resp BP Pulse Ox 98.2 F 100 H 15 114/59 L 95 12/12/17 08:00 12/12/17 09:00 12/12/17 11:34 12/12/17 08:46 12/12/17 08:00 - Medications Medications: Current Medications Acetaminophen (Tylenol 325mg Tab) 650 mg PO Q6 PRN PRN Reason: Pain, Mild (1-3)/headache Last Admin: 12/12/17 04:25 Dose: 650 mg Acetylcysteine (Acetylcysteine 20%) 2 ml INH RBID [facility] Last Admin: 12/12/17 07:46 Dose: 2 ml Alprazolam (Xanax) 0.25 mg PO Q8 PRN PRN Reason: Anxiety Stop: 12/16/17 10:27 Last Admin: 12/10/17 22:08 Dose: 0.25 mg Anastrozole (Arimidex 1 Mg Tab) 1 mg PO DAILY [facility] Last Admin: 12/12/17 08:45 Dose: 1 mg Aspirin (Ecotrin) 325 mg PO DAILY [facility] Last Admin: 12/12/17 08:44 Dose: 325 mg Atorvastatin Calcium (Lipitor) 40 mg PO HS [facility] Last Admin: 12/11/17 21:46 Dose: 40 mg Dextrose (Dextrose 50% Inj) 0 ml IV STAT PRN; Protocol PRN Reason: Hypoglycemia Protocol Dextrose (Glutose 15) 0 gm PO ONCE PRN; Protocol PRN Reason: Hypoglycemia Protocol Dicyclomine HCl (Bentyl) 10 mg PO QID PRN PRN Reason: Pain, moderate (4-7) Last Admin: 12/04/17 08:30 Dose: 10 mg Diltiazem HCl (Cardizem Cd) 240 mg PO DAILY [facility] Last Admin: 12/12/17 08:46 Dose: 240 mg Emollient Ointment (Vaseline Oint) 1 pkt TOP BID PRN PRN Reason: Dry skin Last Admin: 12/06/17 18:49 Dose: 1 pkt Gabapentin (Neurontin) 600 mg PO Q8 [facility] Last Admin: 12/12/17 08:45 Dose: 600 mg Glipizide (Glucotrol) 5 mg PO ACBD [facility] Last Admin: 12/12/17 08:46 Dose: 5 mg Glucagon (Glucagen Diagnostic Kit) 0 mg IM STAT PRN; Protocol PRN Reason: Hypoglycemia Protocol Guaifenesin (Mucinex La) 600 mg PO Q12 [facility] Last Admin: 12/12/17 08:45 Dose: 600 mg Insulin Human Regular (Humulin R) 0 units SC ACHS [facility] PRN Reason: Protocol Last Admin: 12/12/17 11:47 Dose: Not Given Levalbuterol HCl (Xopenex) 0.63 mg INH RQ4 PRN PRN Reason: Shortness of Breath Last Admin: 12/11/17 19:36 Dose: 0.63 mg Levalbuterol HCl (Xopenex) 0.63 mg INH RQ8 [facility] Last Admin: 12/12/17 08:46 Dose: 0.63 mg Lidocaine (Lidoderm) 1 ea TD DAILY PRN PRN Reason: Pain, moderate (4-7) Last Admin: 11/29/17 09:38 Dose: 1 ea Methimazole (Tapazole) 5 mg PO DAILY [facility] Last Admin: 12/12/17 08:44 Dose: 5 mg Methylprednisolone (Medrol) 16 mg PO DAILY [facility] Last Admin: 12/12/17 08:45 Dose: 16 mg Mirtazapine (Remeron) 15 mg PO HS [facility] Last Admin: 12/11/17 21:46 Dose: 15 mg Ondansetron HCl (Zofran Inj) 4 mg IVP Q4 PRN PRN Reason: Nausea/Vomiting Last Admin: 11/13/17 19:35 Dose: 4 mg Pantoprazole Sodium (Protonix Ec Tab) 40 mg PO DAILY [facility] Last Admin: 12/12/17 08:46 Dose: 40 mg Theophylline (Uniphyl) 400 mg PO DAILY [facility] Last Admin: 12/12/17 08:46 Dose: 400 mg Tiotropium [place] (Spiriva) 18 mcg INH DAILY [facility] Last Admin: 12/12/17 08:43 Dose: 18 mcg Trimethoprim/Sulfamethoxazole (Bactrim Ds Tab) 1 tab PO Q12 [facility] PRN Reason: Protocol Last Admin: 12/12/17 08:44 Dose: 1 tab - Labs Labs: 12/12/17 04:20 12/12/17 04:20 PT 10.3 Seconds (9.8-13.1) 12/11/17 20:08 INR 0.9 12/11/17 20:08 APTT 27.5 Seconds (25.6-37.1) 12/11/17 20:08 <Bala Benz - Last Filed: 12/12/17 17:16> Subjective - Subjective Subjective: The patient was seen and examined together with the residents on rounds. Her findings were discussed and a plan of care was formulated. I am in agreement with the resident's note as entered into the EMR. Objective - Vital Signs/Intake and Output Vital Signs (last 24 hours): Temp Pulse Resp BP Pulse Ox 98.2 F 93 H 22 118/68 94 L 12/12/17 15:48 12/12/17 15:48 12/12/17 15:48 12/12/17 15:48 12/12/17 15:48 - Medications Medications: Current Medications Acetaminophen (Tylenol 325mg Tab) 650 mg PO Q6 PRN PRN Reason: Pain, Mild (1-3)/headache Last Admin: 12/12/17 04:25 Dose: 650 mg Acetylcysteine (Acetylcysteine 20%) 2 ml INH RBID [facility] Last Admin: 12/12/17 07:46 Dose: 2 ml Alprazolam (Xanax) 0.25 mg PO Q8 PRN PRN Reason: Anxiety Stop: 12/16/17 10:27 Last Admin: 12/12/17 14:49 Dose: 0.25 mg Anastrozole (Arimidex 1 Mg Tab) 1 mg PO DAILY [facility] Last Admin: 12/12/17 08:45 Dose: 1 mg Aspirin (Ecotrin) 325 mg PO DAILY [facility] Last Admin: 12/12/17 08:44 Dose: 325 mg Atorvastatin Calcium (Lipitor) 40 mg PO HS [facility] Last Admin: 12/11/17 21:46 Dose: 40 mg Dextrose (Dextrose 50% Inj) 0 ml IV STAT PRN; Protocol PRN Reason: Hypoglycemia Protocol Dextrose (Glutose 15) 0 gm PO ONCE PRN; Protocol PRN Reason: Hypoglycemia Protocol Dicyclomine HCl (Bentyl) 10 mg PO QID PRN PRN Reason: Pain, moderate (4-7) Last Admin: 12/04/17 08:30 Dose: 10 mg Diltiazem HCl (Cardizem Cd) 240 mg PO DAILY [facility] Last Admin: 12/12/17 08:46 Dose: 240 mg Emollient Ointment (Vaseline Oint) 1 pkt TOP BID PRN PRN Reason: Dry skin Last Admin: 12/06/17 18:49 Dose: 1 pkt Gabapentin (Neurontin) 600 mg PO Q8 [facility] Last Admin: 12/12/17 16:38 Dose: 600 mg Glucagon (Glucagen Diagnostic Kit) 0 mg IM STAT PRN; Protocol PRN Reason: Hypoglycemia Protocol Guaifenesin (Mucinex La) 600 mg PO Q12 [facility] Last Admin: 12/12/17 08:45 Dose: 600 mg Insulin Human Regular (Humulin R) 0 units SC ACHS [facility] PRN Reason: Protocol Last Admin: 12/12/17 16:37 Dose: Not Given Levalbuterol HCl (Xopenex) 0.63 mg INH RQ4 PRN PRN Reason: Shortness of Breath Last Admin: 12/11/17 19:36 Dose: 0.63 mg Levalbuterol HCl (Xopenex) 0.63 mg INH RQ8 [facility] Last Admin: 12/12/17 15:41 Dose: Not Given Lidocaine (Lidoderm) 1 ea TD DAILY PRN PRN Reason: Pain, moderate (4-7) Last Admin: 11/29/17 09:38 Dose: 1 ea Methylprednisolone (Medrol) 16 mg PO DAILY [facility] Last Admin: 12/12/17 08:45 Dose: 16 mg Mirtazapine (Remeron) 15 mg PO HS [facility] Last Admin: 12/11/17 21:46 Dose: 15 mg Ondansetron HCl (Zofran Inj) 4 mg IVP Q4 PRN PRN Reason: Nausea/Vomiting Last Admin: 11/13/17 19:35 Dose: 4 mg Pantoprazole Sodium (Protonix Ec Tab) 40 mg PO DAILY [facility] Last Admin: 12/12/17 08:46 Dose: 40 mg Theophylline (Uniphyl) 400 mg PO DAILY [facility] Last Admin: 12/12/17 08:46 Dose: 400 mg Tiotropium [place] (Spiriva) 18 mcg INH DAILY [facility] Last Admin: 12/12/17 08:43 Dose: 18 mcg Trimethoprim/Sulfamethoxazole (Bactrim Ds Tab) 1 tab PO Q12 [facility] PRN Reason: Protocol Last Admin: 12/12/17 08:44 Dose: 1 tab - Labs Labs: 12/12/17 04:20 12/12/17 04:20 PT 10.3 Seconds (9.8-13.1) 12/11/17 20:08 INR 0.9 12/11/17 20:08 APTT 27.5 Seconds (25.6-37.1) 12/11/17 20:08
[2017-12-12] MEDS ORDERED: MethylPREDNISolone 40 mg Vial ONE (14:41)
[2017-12-12] MEDS ORDERED: methylPREDNISolone 40 MG in Sodium Chloride 0.9% 50 ML IVPB STA (15:16)
[2017-12-12] MEDS ORDERED: MethylPREDNISolone 40 mg Vial IVP STA (15:24)
--- NOTE | 2017-12-12 18:09 | CARD ---
APPROVED REPORT Date of service: 12/12/2017 <Conclusion> Sinus tachycardia T wave abnormality, consider lateral ischemia Abnormal ECG
--- NOTE | 2017-12-12 18:16 | PN ---
Copied To: Polly Vu MD Attending MD: Polly Vu MD DATE: 12/12/2017SUBJECTIVE: Presenting here with acute exacerbation of COPD with supervening congestive heart failure and is now being followed closely for metabolic management. Her glycemic levels are fluctuating but much improved as noted since the switch over from IV to oral steroids as given. Her glucose values today have ranged from 84 to 121 mg/dL. LABORATORY DATA: Her latest chemistries showed a BUN of 27, sodium 139, potassium 3.8, chloride 99, CO2 of 35, glucose 117, and creatinine 0.7. The repeat thyroid study showed a total T4 of 1.86 with an albumin level of 2.9 which is also extremely low contributing to the low TBG levels and subsequent low thyroxine values with also a low free T4 of 0.15 and a slightly elevated TSH of 3.29. This is indicative of subclinical hypothyroidism with significant history of hyperthyroidism as noted thereof. ASSESSMENT AND PLAN: So, at this time, we will discontinue the Tapazole medications as given and we will observe her thyroid studies accordingly. We will discontinue the glipizide given as 5 mg b.i.d., as she is only now on oral steroids as given. If hyperglycemic levels supervene, then we can start her back on glipizide as indicated. We will obtain serial chemistries and supplement accordingly as needed. We will follow. Polly Vu MD
[2017-12-12] MEDS: Levalbuterol 0.63 MG/3 ML Inhal Soln UD INH PRN (19:34)
[2017-12-13] MEDS: Levalbuterol 0.63 MG/3 ML Inhal Soln UD INH SCH ×4 (00:02→23:57)
[2017-12-13] MEDS: Acetylcysteine 20% Inhal Soln (4ml) INH SCH ×2 (08:04→19:20)
[2017-12-13] MEDS: guaiFENesin 600 mg ER Tab PO SCH ×2 (09:40→22:00)
[2017-12-13] MEDS: Tiotropium 18 mcg Cap For Inhalation INH SCH (09:41)
[2017-12-13] MEDS: Tmp-Smz 800 mg-160 mg DS Tab PO SCH ×2 (09:41→22:00)
[2017-12-13] MEDS: Pantoprazole 40 mg EC Tab PO SCH (09:41)
[2017-12-13] MEDS: THEOPHYLLINE 400 MG T24(UNIPHYL) PO SCH (09:41)
[2017-12-13] MEDS: Insulin Regular 100 units/ml SC SCH ×4 (09:42→22:00)
[2017-12-13] MEDS: diltiaZEM 240 mg/24 Hours CD Cap PO SCH (09:44)
[2017-12-13] MEDS: Aspirin 325 mg EC Tablets PO SCH (09:50)
--- NOTE | 2017-12-13 11:06 | CP.PCM.PN ---
Subjective - Date & Time of Evaluation Date of Evaluation: 12/13/17 Time of Evaluation: 09:45 - Subjective Subjective: Pt had an episode of sudden SOB yesterday afternoon - improved with Neb tx , a dose of Solumedrol and Lasix Pt feels better today denies CP no abd pain no diarrhea Remains on High Flow Oxygen Objective - Vital Signs/Intake and Output Vital Signs (last 24 hours): Temp Pulse Resp BP Pulse Ox 97.9 F 88 18 134/79 97 12/13/17 08:12 12/13/17 09:44 12/13/17 08:36 12/13/17 09:44 12/13/17 08:12 - Medications Medications: Current Medications Acetaminophen (Tylenol 325mg Tab) 650 mg PO Q6 PRN PRN Reason: Pain, Mild (1-3)/headache Last Admin: 12/12/17 04:25 Dose: 650 mg Acetylcysteine (Acetylcysteine 20%) 2 ml INH RBID [facility] Last Admin: 12/13/17 08:04 Dose: 2 ml Alprazolam (Xanax) 0.25 mg PO Q8 PRN PRN Reason: Anxiety Stop: 12/16/17 10:27 Last Admin: 12/12/17 14:49 Dose: 0.25 mg Anastrozole (Arimidex 1 Mg Tab) 1 mg PO DAILY [facility] Last Admin: 12/13/17 09:45 Dose: 1 mg Aspirin (Aspirin Chewable) 81 mg PO DAILY [facility] Last Admin: 12/13/17 10:28 Dose: 81 mg Atorvastatin Calcium (Lipitor) 40 mg PO HS [facility] Last Admin: 12/12/17 21:32 Dose: 40 mg Dextrose (Dextrose 50% Inj) 0 ml IV STAT PRN; Protocol PRN Reason: Hypoglycemia Protocol Dextrose (Glutose 15) 0 gm PO ONCE PRN; Protocol PRN Reason: Hypoglycemia Protocol Dicyclomine HCl (Bentyl) 10 mg PO QID PRN PRN Reason: Pain, moderate (4-7) Last Admin: 12/04/17 08:30 Dose: 10 mg Diltiazem HCl (Cardizem Cd) 240 mg PO DAILY [facility] Last Admin: 12/13/17 09:44 Dose: 240 mg Emollient Ointment (Vaseline Oint) 1 pkt TOP BID PRN PRN Reason: Dry skin Last Admin: 12/06/17 18:49 Dose: 1 pkt Gabapentin (Neurontin) 600 mg PO Q8 [facility] Last Admin: 12/13/17 09:43 Dose: 600 mg Glucagon (Glucagen Diagnostic Kit) 0 mg IM STAT PRN; Protocol PRN Reason: Hypoglycemia Protocol Guaifenesin (Mucinex La) 600 mg PO Q12 [facility] Last Admin: 12/13/17 09:40 Dose: 600 mg Insulin Human Regular (Humulin R) 0 units SC ACHS [facility] PRN Reason: Protocol Last Admin: 12/13/17 09:42 Dose: 3 u Levalbuterol HCl (Xopenex) 0.63 mg INH RQ4 PRN PRN Reason: Shortness of Breath Last Admin: 12/12/17 19:34 Dose: 0.63 mg Levalbuterol HCl (Xopenex) 0.63 mg INH RQ8 [facility] Last Admin: 12/13/17 08:04 Dose: 0.63 mg Lidocaine (Lidoderm) 1 ea TD DAILY PRN PRN Reason: Pain, moderate (4-7) Last Admin: 11/29/17 09:38 Dose: 1 ea Methylprednisolone (Medrol) 16 mg PO DAILY [facility] Last Admin: 12/13/17 09:41 Dose: 16 mg Mirtazapine (Remeron) 15 mg PO HS [facility] Last Admin: 12/12/17 21:32 Dose: 15 mg Ondansetron HCl (Zofran Inj) 4 mg IVP Q4 PRN PRN Reason: Nausea/Vomiting Last Admin: 11/13/17 19:35 Dose: 4 mg Pantoprazole Sodium (Protonix Ec Tab) 40 mg PO DAILY [facility] Last Admin: 12/13/17 09:41 Dose: 40 mg Theophylline (Uniphyl) 400 mg PO DAILY [facility] Last Admin: 12/13/17 09:41 Dose: 400 mg Tiotropium [place] (Spiriva) 18 mcg INH DAILY [facility] Last Admin: 12/13/17 09:41 Dose: 18 mcg Trimethoprim/Sulfamethoxazole (Bactrim Ds Tab) 1 tab PO Q12 [facility] PRN Reason: Protocol Last Admin: 12/13/17 09:41 Dose: 1 tab - Labs Labs: 12/12/17 04:20 12/12/17 04:20 PT 10.3 Seconds (9.8-13.1) 12/11/17 20:08 INR 0.9 12/11/17 20:08 APTT 27.5 Seconds (25.6-37.1) 12/11/17 20:08 - Constitutional Appears: Chronically Ill - Head Exam Head Exam: NORMAL INSPECTION, NORMOCEPHALIC - Eye Exam Eye Exam: Normal appearance Pupil Exam: NORMAL ACCOMMODATION - ENT Exam ENT Exam: Mucous Membranes Moist, Normal External Ear Exam - Neck Exam Neck Exam: Full ROM. absent: Meningismus - Respiratory Exam Respiratory Exam: Decrease BS, Prolonged Expiratory Phase, coarse Rales, Rhonchi No wheezing - Cardiovascular Exam Cardiovascular Exam: Tachycardia, REGULAR RHYTHM, +S1, +S2 - GI/Abdominal Exam GI & Abdominal Exam: Soft, Normal Bowel Sounds. absent: Tenderness Additional comments: abd wall hematoma - Extremities Exam Extremities Exam: Normal Capillary Refill, Pedal Edema. absent: Calf Tenderness Additional comments: right arm swelling/lymphedema - Back Exam Back Exam: absent: CVA tenderness (L), CVA tenderness (R) - Neurological Exam Neurological Exam: Alert, Awake, Oriented x3 - Psychiatric Exam Psychiatric exam: Normal Affect, Normal Mood - Skin Skin Exam: Dry, Normal Color, Warm Assessment and Plan - Assessment and Plan (Free Text) Assessment: 67 yo female with medical history including COPD, CHF, hypothyroidism, history of breast Cancer s/p mastectomy, chronic RUE lymphedema was brought into the ED because of dyspnea. Patient was then found to be in respiratory failure secondary to COPD and CHF exacerbation. Patient was admitted to ICU where she was on bipap and IV steroids and diuretics. She is now in Telemetry At present - on High Flow Oxygen at 35L /50% (1) Acute exacerbation of chronic obstructive pulmonary disease (COPD) - cont Nebulizer tx RTC with Xopenex cont PO Methyprednisolone 16 mg daily cont Bactrim and Theophylline CT of chest - ruled out PE (2) DM type II with Hyperglycemia secondary to steroids Accucheck with coverage cont Levemir (3) Acute exacerbation of CHF (congestive heart failure) Diastolic dysfunction Continue current management: Diuretics prn cont Cardizem 240 mg po Daily. (4) C. difficile colitis - Resolved. (5) Hyperthyroidism - discussed case with Dr Vu - TSH now normal - cont Methimazole 5mg po daily 6. HTN (hypertension) Continue current management: Diltiazem and Losartan. increased Diltiazem dose (7) Hx of breast cancer Continue current management: Arimidex. DVT prophylaxis RLE U/S negative for DVT. Nosebleed - Hold Lovenox for now, decrease ASA to 81 mg daily
--- NOTE | 2017-12-13 11:10 | CP.PCM.PN ---
<Aiden Bashir - Last Filed: 12/13/17 11:56> Subjective - Date & Time of Evaluation Date of Evaluation: 12/13/17 Time of Evaluation: 08:40 - Subjective Subjective: Patient seen and examined during morning rounds in [facility]. Dyspnea at rest and with consversation improved since yesterday. Less congested since yesterday, but is unable to expectorate. She denies any chest pain. Her vital signs are stable and she remains afebrile. Patient currently on high flow nasal cannula at 35 L/m and 50% oxygen. SPO2 95% and HR 89 Patient had another episode of nose bleed yesterday. Lovenox on hold The pharynx is pink and mucous membranes are moist. No exudate is seen. The neck is supple and trachea is midline. Breath sounds are present bilaterally, diminished equally in both lungs. There is no audible wheezing but the expiratory phase is prolonged. Scattered rhonchi present anteriorly. No rales. Ecchymosis on lower back area. There is trace pendant edema without cyanosis. Maintained on high flow nasal cannula with clear flow increased to 35 and continued O2 supplementation at 50%. We'll continue using oral antibiotic therapy in the form of BACTRIM empirically. Will not reduce dosage of oral corticosteroids today. All other medications will continue unchanged as well. Objective - Vital Signs/Intake and Output Vital Signs (last 24 hours): Temp Pulse Resp BP Pulse Ox 97.9 F 88 18 134/79 97 12/13/17 08:12 12/13/17 09:44 12/13/17 08:36 12/13/17 09:44 12/13/17 08:12 - Medications Medications: Current Medications Acetaminophen (Tylenol 325mg Tab) 650 mg PO Q6 PRN PRN Reason: Pain, Mild (1-3)/headache Last Admin: 12/12/17 04:25 Dose: 650 mg Acetylcysteine (Acetylcysteine 20%) 2 ml INH RBID [facility] Last Admin: 12/13/17 08:04 Dose: 2 ml Alprazolam (Xanax) 0.25 mg PO Q8 PRN PRN Reason: Anxiety Stop: 12/16/17 10:27 Last Admin: 12/12/17 14:49 Dose: 0.25 mg Anastrozole (Arimidex 1 Mg Tab) 1 mg PO DAILY [facility] Last Admin: 12/13/17 09:45 Dose: 1 mg Aspirin (Aspirin Chewable) 81 mg PO DAILY [facility] Last Admin: 12/13/17 10:28 Dose: 81 mg Atorvastatin Calcium (Lipitor) 40 mg PO HS [facility] Last Admin: 12/12/17 21:32 Dose: 40 mg Dextrose (Dextrose 50% Inj) 0 ml IV STAT PRN; Protocol PRN Reason: Hypoglycemia Protocol Dextrose (Glutose 15) 0 gm PO ONCE PRN; Protocol PRN Reason: Hypoglycemia Protocol Dicyclomine HCl (Bentyl) 10 mg PO QID PRN PRN Reason: Pain, moderate (4-7) Last Admin: 12/04/17 08:30 Dose: 10 mg Diltiazem HCl (Cardizem Cd) 240 mg PO DAILY [facility] Last Admin: 12/13/17 09:44 Dose: 240 mg Emollient Ointment (Vaseline Oint) 1 pkt TOP BID PRN PRN Reason: Dry skin Last Admin: 12/06/17 18:49 Dose: 1 pkt Gabapentin (Neurontin) 600 mg PO Q8 [facility] Last Admin: 12/13/17 09:43 Dose: 600 mg Glucagon (Glucagen Diagnostic Kit) 0 mg IM STAT PRN; Protocol PRN Reason: Hypoglycemia Protocol Guaifenesin (Mucinex La) 600 mg PO Q12 [facility] Last Admin: 12/13/17 09:40 Dose: 600 mg Insulin Human Regular (Humulin R) 0 units SC ACHS [facility] PRN Reason: Protocol Last Admin: 12/13/17 09:42 Dose: 3 u Levalbuterol HCl (Xopenex) 0.63 mg INH RQ4 PRN PRN Reason: Shortness of Breath Last Admin: 12/12/17 19:34 Dose: 0.63 mg Levalbuterol HCl (Xopenex) 0.63 mg INH RQ8 [facility] Last Admin: 12/13/17 08:04 Dose: 0.63 mg Lidocaine (Lidoderm) 1 ea TD DAILY PRN PRN Reason: Pain, moderate (4-7) Last Admin: 11/29/17 09:38 Dose: 1 ea Methylprednisolone (Medrol) 16 mg PO DAILY [facility] Last Admin: 12/13/17 09:41 Dose: 16 mg Mirtazapine (Remeron) 15 mg PO HS [facility] Last Admin: 12/12/17 21:32 Dose: 15 mg Ondansetron HCl (Zofran Inj) 4 mg IVP Q4 PRN PRN Reason: Nausea/Vomiting Last Admin: 11/13/17 19:35 Dose: 4 mg Pantoprazole Sodium (Protonix Ec Tab) 40 mg PO DAILY [facility] Last Admin: 12/13/17 09:41 Dose: 40 mg Theophylline (Uniphyl) 400 mg PO DAILY [facility] Last Admin: 12/13/17 09:41 Dose: 400 mg Tiotropium [place] (Spiriva) 18 mcg INH DAILY [facility] Last Admin: 12/13/17 09:41 Dose: 18 mcg Trimethoprim/Sulfamethoxazole (Bactrim Ds Tab) 1 tab PO Q12 [facility] PRN Reason: Protocol Last Admin: 12/13/17 09:41 Dose: 1 tab - Labs Labs: 12/12/17 04:20 12/12/17 04:20 PT 10.3 Seconds (9.8-13.1) 12/11/17 20:08 INR 0.9 12/11/17 20:08 APTT 27.5 Seconds (25.6-37.1) 12/11/17 20:08 <Bala Benz - Last Filed: 12/13/17 20:30> Subjective - Subjective Subjective: Seen and examined on rounds with the resident. Findings were discussed and a plan of care was formulated. The entry by the resident into the EMR is consistent with my own findings. Objective - Vital Signs/Intake and Output Vital Signs (last 24 hours): Temp Pulse Resp BP Pulse Ox 98.0 F 100 H 18 113/60 96 12/13/17 16:05 12/13/17 16:05 12/13/17 19:20 12/13/17 16:05 12/13/17 16:05 - Medications Medications: Current Medications Acetaminophen (Tylenol 325mg Tab) 650 mg PO Q6 PRN PRN Reason: Pain, Mild (1-3)/headache Last Admin: 12/12/17 04:25 Dose: 650 mg Acetylcysteine (Acetylcysteine 20%) 2 ml INH RBID [facility] Last Admin: 12/13/17 19:20 Dose: 2 ml Alprazolam (Xanax) 0.25 mg PO Q8 PRN PRN Reason: Anxiety Stop: 12/16/17 10:27 Last Admin: 12/12/17 14:49 Dose: 0.25 mg Anastrozole (Arimidex 1 Mg Tab) 1 mg PO DAILY [facility] Last Admin: 12/13/17 09:45 Dose: 1 mg Aspirin (Aspirin Chewable) 81 mg PO DAILY [facility] Last Admin: 12/13/17 10:28 Dose: 81 mg Atorvastatin Calcium (Lipitor) 40 mg PO HS [facility] Last Admin: 12/12/17 21:32 Dose: 40 mg Dextrose (Dextrose 50% Inj) 0 ml IV STAT PRN; Protocol PRN Reason: Hypoglycemia Protocol Dextrose (Glutose 15) 0 gm PO ONCE PRN; Protocol PRN Reason: Hypoglycemia Protocol Dicyclomine HCl (Bentyl) 10 mg PO QID PRN PRN Reason: Pain, moderate (4-7) Last Admin: 12/04/17 08:30 Dose: 10 mg Diltiazem HCl (Cardizem Cd) 240 mg PO DAILY [facility] Last Admin: 12/13/17 09:44 Dose: 240 mg Emollient Ointment (Vaseline Oint) 1 pkt TOP BID PRN PRN Reason: Dry skin Last Admin: 12/06/17 18:49 Dose: 1 pkt Gabapentin (Neurontin) 600 mg PO Q8 [facility] Last Admin: 12/13/17 16:54 Dose: 600 mg Glucagon (Glucagen Diagnostic Kit) 0 mg IM STAT PRN; Protocol PRN Reason: Hypoglycemia Protocol Guaifenesin (Mucinex La) 600 mg PO Q12 [facility] Last Admin: 12/13/17 09:40 Dose: 600 mg Insulin Human Regular (Humulin R) 0 units SC ACHS [facility] PRN Reason: Protocol Last Admin: 12/13/17 16:54 Dose: 4 u Levalbuterol HCl (Xopenex) 0.63 mg INH RQ4 PRN PRN Reason: Shortness of Breath Last Admin: 12/13/17 19:20 Dose: 0.63 mg Levalbuterol HCl (Xopenex) 0.63 mg INH RQ8 [facility] Last Admin: 12/13/17 15:46 Dose: 0.63 mg Lidocaine (Lidoderm) 1 ea TD DAILY PRN PRN Reason: Pain, moderate (4-7) Last Admin: 11/29/17 09:38 Dose: 1 ea Methylprednisolone (Medrol) 16 mg PO DAILY [facility] Last Admin: 12/13/17 09:41 Dose: 16 mg Mirtazapine (Remeron) 15 mg PO HS [facility] Last Admin: 12/12/17 21:32 Dose: 15 mg Ondansetron HCl (Zofran Inj) 4 mg IVP Q4 PRN PRN Reason: Nausea/Vomiting Last Admin: 11/13/17 19:35 Dose: 4 mg Pantoprazole Sodium (Protonix Ec Tab) 40 mg PO DAILY [facility] Last Admin: 12/13/17 09:41 Dose: 40 mg Theophylline (Uniphyl) 400 mg PO DAILY [facility] Last Admin: 12/13/17 09:41 Dose: 400 mg Tiotropium [place] (Spiriva) 18 mcg INH DAILY [facility] Last Admin: 12/13/17 09:41 Dose: 18 mcg Trimethoprim/Sulfamethoxazole (Bactrim Ds Tab) 1 tab PO Q12 [facility] PRN Reason: Protocol Last Admin: 12/13/17 09:41 Dose: 1 tab - Labs Labs: 12/12/17 04:20 12/12/17 04:20 PT 10.3 Seconds (9.8-13.1) 12/11/17 20:08 INR 0.9 12/11/17 20:08 APTT 27.5 Seconds (25.6-37.1) 12/11/17 20:08
--- NOTE | 2017-12-13 15:32 | PN ---
Copied To: Polly Vu MD Attending MD: Polly Vu MD DATE: 12/13/2017 ENDO FOLLOWUP NOTE LOCATION: In room . SUBJECTIVE: This is a 67-year-old female with recent admission for acute exacerbation of COPD with supervening congestive heart failure and is now improving clinically and hemodynamically as noted thereof. Her glycemic levels are fluctuating, but improved and the glucose values are ranged from 84 to 121 mg/dL. LABORATORY DATA: Her latest chemistry showed a BUN of 27, sodium 139, potassium 3.8, chloride 99, CO2 of 35, glucose 117, and creatinine of 0.7. Her repeat thyroid study showed the T4 of 1.86 with a TSH of 3.29. ASSESSMENT AND PLAN: So, at this time, we have discontinued once again her Tapazole given as 5 mg once daily as ordered. We have also discontinued the glipizide given as 5 mg b.i.d. as given because of the variable oral intake and also because she has just been switched over now from intravenous to oral steroids as noted. We looked into her chemistries and supplement accordingly as needed. We will follow. Polly Vu MD
[2017-12-13] MEDS: Levalbuterol 0.63 MG/3 ML Inhal Soln UD INH PRN (19:20)
[2017-12-14 05:49] LABS: HEMOGLOBIN 9.8 g/dL (12.0-16.0); MEAN CELL VOLUME 90.5 fl (81.0-99.0); MEAN CORPUSCULAR HEMOGLOBIN 29.4 pg (27.0-31.0); MEAN CORPUSCULAR HGB CONC 32.5 g/dL (33.0-37.0); RBC 3.32 Mil/uL (3.80-5.20); RED CELL DISTRIBUTION WIDTH 21.1 % (11.5-14.5); WHITE BLOOD COUNT 6.6 K/uL (4.8-10.8)
[2017-12-14 06:15] LABS: BLOOD UREA NITROGEN 24 mg/dl (7-17); CALCIUM 8.8 mg/dL (8.4-10.2); GFR NON-AFRICAN AMERICAN > 60
[2017-12-14] MEDS: Acetylcysteine 20% Inhal Soln (4ml) INH SCH (08:00)
[2017-12-14] MEDS: Levalbuterol 0.63 MG/3 ML Inhal Soln UD INH SCH (08:00)
[2017-12-14] MEDS: Pantoprazole 40 mg EC Tab PO SCH (08:49)
[2017-12-14] MEDS: Tiotropium 18 mcg Cap For Inhalation INH SCH (08:49)
[2017-12-14] MEDS: diltiaZEM 240 mg/24 Hours CD Cap PO SCH (08:50)
[2017-12-14] MEDS: THEOPHYLLINE 400 MG T24(UNIPHYL) PO SCH (08:50)
[2017-12-14] MEDS: Tmp-Smz 800 mg-160 mg DS Tab PO SCH ×2 (08:50→22:09)
[2017-12-14] MEDS: Insulin Regular 100 units/ml SC SCH ×4 (08:51→21:44)
[2017-12-14] MEDS: guaiFENesin 600 mg ER Tab PO SCH ×2 (08:52→21:43)
--- NOTE | 2017-12-14 09:14 | CP.PCM.PN ---
Subjective - Date & Time of Evaluation Date of Evaluation: 12/14/17 Time of Evaluation: 09:00 - Subjective Subjective: Still on the hIgh Flow Oxygen 30L/50% FiO2 For the past 48 hours , the patient has been feling better - no episodes of sudden dyspnea nosebleed resolved denies CP no abd pain no diarrhea leg edema sl worse today Objective - Vital Signs/Intake and Output Vital Signs (last 24 hours): Temp Pulse Resp BP Pulse Ox 97.9 F 61 20 154/70 H 96 12/14/17 04:53 12/14/17 08:50 12/14/17 08:14 12/14/17 08:50 12/14/17 04:53 - Medications Medications: Current Medications Acetaminophen (Tylenol 325mg Tab) 650 mg PO Q6 PRN PRN Reason: Pain, Mild (1-3)/headache Last Admin: 12/12/17 04:25 Dose: 650 mg Acetylcysteine (Acetylcysteine 20%) 2 ml INH RBID [facility] Last Admin: 12/14/17 08:00 Dose: 2 ml Alprazolam (Xanax) 0.25 mg PO Q8 PRN PRN Reason: Anxiety Stop: 12/16/17 10:27 Last Admin: 12/13/17 22:09 Dose: 0.25 mg Anastrozole (Arimidex 1 Mg Tab) 1 mg PO DAILY [facility] Last Admin: 12/14/17 08:53 Dose: 1 mg Aspirin (Aspirin Chewable) 81 mg PO DAILY [facility] Last Admin: 12/14/17 08:49 Dose: 81 mg Atorvastatin Calcium (Lipitor) 40 mg PO HS [facility] Last Admin: 12/13/17 22:01 Dose: 40 mg Dextrose (Dextrose 50% Inj) 0 ml IV STAT PRN; Protocol PRN Reason: Hypoglycemia Protocol Dextrose (Glutose 15) 0 gm PO ONCE PRN; Protocol PRN Reason: Hypoglycemia Protocol Diltiazem HCl (Cardizem Cd) 240 mg PO DAILY [facility] Last Admin: 12/14/17 08:50 Dose: 240 mg Emollient Ointment (Vaseline Oint) 1 pkt TOP BID PRN PRN Reason: Dry skin Last Admin: 12/06/17 18:49 Dose: 1 pkt Gabapentin (Neurontin) 600 mg PO Q8 [facility] Last Admin: 12/14/17 08:51 Dose: 600 mg Glucagon (Glucagen Diagnostic Kit) 0 mg IM STAT PRN; Protocol PRN Reason: Hypoglycemia Protocol Guaifenesin (Mucinex La) 600 mg PO Q12 [facility] Last Admin: 12/14/17 08:52 Dose: 600 mg Insulin Human Regular (Humulin R) 0 units SC ACHS [facility] PRN Reason: Protocol Last Admin: 12/14/17 08:51 Dose: 3 u Levalbuterol HCl (Xopenex) 0.63 mg INH RQ4 PRN PRN Reason: Shortness of Breath Last Admin: 12/13/17 19:20 Dose: 0.63 mg Levalbuterol HCl (Xopenex) 0.63 mg INH RQ8 [facility] Last Admin: 12/14/17 08:00 Dose: 0.63 mg Lidocaine (Lidoderm) 1 ea TD DAILY PRN PRN Reason: Pain, moderate (4-7) Last Admin: 11/29/17 09:38 Dose: 1 ea Methylprednisolone (Medrol) 16 mg PO DAILY [facility] Last Admin: 12/14/17 08:52 Dose: 16 mg Mirtazapine (Remeron) 15 mg PO HS [facility] Last Admin: 12/13/17 22:01 Dose: 15 mg Ondansetron HCl (Zofran Inj) 4 mg IVP Q4 PRN PRN Reason: Nausea/Vomiting Last Admin: 11/13/17 19:35 Dose: 4 mg Pantoprazole Sodium (Protonix Ec Tab) 40 mg PO DAILY [facility] Last Admin: 12/14/17 08:49 Dose: 40 mg Theophylline (Uniphyl) 400 mg PO DAILY [facility] Last Admin: 12/14/17 08:50 Dose: 400 mg Tiotropium [place] (Spiriva) 18 mcg INH DAILY [facility] Last Admin: 12/14/17 08:49 Dose: 18 mcg Trimethoprim/Sulfamethoxazole (Bactrim Ds Tab) 1 tab PO Q12 [facility] PRN Reason: Protocol Last Admin: 12/14/17 08:50 Dose: 1 tab - Labs Labs: 12/14/17 04:20 12/14/17 04:20 PT 10.3 Seconds (9.8-13.1) 12/11/17 20:08 INR 0.9 12/11/17 20:08 APTT 27.5 Seconds (25.6-37.1) 12/11/17 20:08 - Constitutional Appears: Chronically Ill - Head Exam Head Exam: NORMAL INSPECTION, NORMOCEPHALIC - Eye Exam Eye Exam: Normal appearance Pupil Exam: NORMAL ACCOMMODATION - ENT Exam ENT Exam: Mucous Membranes Moist, Normal External Ear Exam - Neck Exam Neck Exam: Full ROM. absent: Meningismus - Respiratory Exam Respiratory Exam: Decrease BS, Prolonged Expiratory Phase, coarse Rales, Rhonchi No wheezing - Cardiovascular Exam Cardiovascular Exam: Tachycardia, REGULAR RHYTHM, +S1, +S2 - GI/Abdominal Exam GI & Abdominal Exam: Soft, Normal Bowel Sounds. absent: Tenderness Additional comments: abd wall hematoma - Extremities Exam Extremities Exam: Normal Capillary Refill, Pedal Edema. absent: Calf Tenderness Additional comments: right arm swelling/lymphedema - Back Exam Back Exam: absent: CVA tenderness (L), CVA tenderness (R) - Neurological Exam Neurological Exam: Alert, Awake, Oriented x3 - Psychiatric Exam Psychiatric exam: Normal Affect, Normal Mood - Skin Skin Exam: Dry, Normal Color, Warm Assessment and Plan - Assessment and Plan (Free Text) Assessment: 67 yo female with medical history including COPD, CHF, hypothyroidism, history of breast Cancer s/p mastectomy, chronic RUE lymphedema was brought into the ED because of dyspnea. Patient was then found to be in respiratory failure secondary to COPD and CHF exacerbation. Patient was admitted to ICU where she was on bipap and IV steroids and diuretics. She is now in Telemetry At present - on High Flow Oxygen at 35L /50% (1) Acute exacerbation of chronic obstructive pulmonary disease (COPD) - cont Nebulizer tx RTC with Xopenex cont PO Methyprednisolone 16 mg daily cont Bactrim and Theophylline CT of chest - ruled out PE (2) DM type II with Hyperglycemia secondary to steroids Accucheck with coverage Increase Levemir to 16 units q hs (3) Acute exacerbation of CHF (congestive heart failure) Diastolic dysfunction Continue current management: Diuretics prn- mikhail give Lasix 20mg IV x 1 today - noted more edema cont Cardizem 240 mg po Daily. (4) C. difficile colitis - Resolved. (5) Hyperthyroidism - discussed case with Dr Vu - TSH now normal - cont Methimazole 5mg po daily 6. HTN (hypertension) Continue current management: Diltiazem and Losartan. increased Diltiazem dose (7) Hx of breast cancer Continue current management: Arimidex. DVT prophylaxis RLE U/S negative for DVT. Pt had Nosebleed - Hold Lovenox for now( will restart in am ), decreased ASA to 81 mg daily
--- NOTE | 2017-12-14 11:41 | CP.PCM.PN ---
Subjective - Date & Time of Evaluation Date of Evaluation: 12/14/17 Time of Evaluation: 08:40 - Subjective Subjective: Patient seen and examined during morning rounds in Tele. Patient sitting comfortably in bed. No dyspnea with conversation. Patient reports getting SOB during PT yesterday. Today during PT patient walked about 12 feet before stopping due to SOB. 10 mins after PT O2 sat 80% Patient currently on 30L/50% high flow nasal cannula. O2 sat improved to 87%, HR 104 with 40 L/50% high flow o2. Her vital signs are stable and she remains afebrile. Patient had one episode of epistaxis yesterday. Lovenox on hold The neck is supple and trachea is midline. Breath sounds are present bilaterally, diminished equally in both lungs. No audible wheezing, Prolonged expiratory phase. Scattered rhonchi present bilaterally. No rales. No pedal edema. Desaturation during PT/walking. Most likely secondary to air trapping. Will hold high flow nasal cannula. Start patient on Ventimask with 50% O2. Use nasal cannula 5L prn when ventimask off. D/C Acetylcystine, Will increase Xopenex from 0.63 mg to 1.25 mg Q8hr. Will monitor theophyline level. Continue with Bactrim and Methylprednisone. All other medications will continue unchanged as well. Objective - Vital Signs/Intake and Output Vital Signs (last 24 hours): Temp Pulse Resp BP Pulse Ox 97.9 F 61 18 154/70 H 96 12/14/17 04:53 12/14/17 08:50 12/14/17 11:36 12/14/17 08:50 12/14/17 04:53 - Medications Medications: Current Medications Acetaminophen (Tylenol 325mg Tab) 650 mg PO Q6 PRN PRN Reason: Pain, Mild (1-3)/headache Last Admin: 12/12/17 04:25 Dose: 650 mg Alprazolam (Xanax) 0.25 mg PO Q8 PRN PRN Reason: Anxiety Stop: 12/16/17 10:27 Last Admin: 12/13/17 22:09 Dose: 0.25 mg Anastrozole (Arimidex 1 Mg Tab) 1 mg PO DAILY [facility] Last Admin: 12/14/17 08:53 Dose: 1 mg Aspirin (Aspirin Chewable) 81 mg PO DAILY [facility] Last Admin: 12/14/17 08:49 Dose: 81 mg Atorvastatin Calcium (Lipitor) 40 mg PO HS [facility] Last Admin: 12/13/17 22:01 Dose: 40 mg Dextrose (Dextrose 50% Inj) 0 ml IV STAT PRN; Protocol PRN Reason: Hypoglycemia Protocol Dextrose (Glutose 15) 0 gm PO ONCE PRN; Protocol PRN Reason: Hypoglycemia Protocol Diltiazem HCl (Cardizem Cd) 240 mg PO DAILY [facility] Last Admin: 12/14/17 08:50 Dose: 240 mg Emollient Ointment (Vaseline Oint) 1 pkt TOP BID PRN PRN Reason: Dry skin Last Admin: 12/06/17 18:49 Dose: 1 pkt Gabapentin (Neurontin) 600 mg PO Q8 [facility] Last Admin: 12/14/17 08:51 Dose: 600 mg Glucagon (Glucagen Diagnostic Kit) 0 mg IM STAT PRN; Protocol PRN Reason: Hypoglycemia Protocol Guaifenesin (Mucinex La) 600 mg PO Q12 [facility] Last Admin: 12/14/17 08:52 Dose: 600 mg Insulin Human Regular (Humulin R) 0 units SC [facility] PRN Reason: Protocol Last Admin: 12/14/17 08:51 Dose: 3 u Levalbuterol HCl (Xopenex) 0.63 mg INH RQ4 PRN PRN Reason: Shortness of Breath Last Admin: 12/13/17 19:20 Dose: 0.63 mg Levalbuterol HCl (Xopenex) 1.25 mg INH RQ8 [facility] Lidocaine (Lidoderm) 1 ea TD DAILY PRN PRN Reason: Pain, moderate (4-7) Last Admin: 11/29/17 09:38 Dose: 1 ea Methylprednisolone (Medrol) 16 mg PO DAILY [facility] Last Admin: 12/14/17 08:52 Dose: 16 mg Mirtazapine (Remeron) 15 mg PO HS [facility] Last Admin: 12/13/17 22:01 Dose: 15 mg Ondansetron HCl (Zofran Inj) 4 mg IVP Q4 PRN PRN Reason: Nausea/Vomiting Last Admin: 11/13/17 19:35 Dose: 4 mg Pantoprazole Sodium (Protonix Ec Tab) 40 mg PO DAILY [facility] Last Admin: 12/14/17 08:49 Dose: 40 mg Theophylline (Uniphyl) 400 mg PO DAILY [facility] Last Admin: 12/14/17 08:50 Dose: 400 mg Tiotropium [place] (Spiriva) 18 mcg INH DAILY [facility] Last Admin: 12/14/17 08:49 Dose: 18 mcg Trimethoprim/Sulfamethoxazole (Bactrim Ds Tab) 1 tab PO Q12 [facility] PRN Reason: Protocol Last Admin: 12/14/17 08:50 Dose: 1 tab - Labs Labs: 12/14/17 04:20 12/14/17 04:20 PT 10.3 Seconds (9.8-13.1) 12/11/17 20:08 INR 0.9 12/11/17 20:08 APTT 27.5 Seconds (25.6-37.1) 12/11/17 20:08
[2017-12-14] MEDS: Levalbuterol 1.25 MG/3 ML Inhal Soln UD INH SCH ×2 (15:46→23:52)
--- NOTE | 2017-12-14 21:25 | PN ---
Copied To: Polly Vu MD Attending MD: Polly Vu MD DATE: 12/14/2017 ENDO FOLLOWUP NOTE LOCATION: Room 408 SUBJECTIVE: This is a 67-year-old female with recent admission for congestive heart failure and supervening exacerbation of COPD, now being followed closely for metabolic management. Her glycemic levels are fluctuating but improved and have ranged from 133 to 283 mg/dL today as noted. LABORATORY DATA: Her chemistry showed BUN of 24, sodium 136, potassium 4, chloride 98, CO2 of 33, glucose 270, and creatinine 0.5. ASSESSMENT AND PLAN: So, at this time, we will restart once again her basal insulin given as Levemir at 12 units subcu at bedtime daily as given. We will continue the low-dose correction scale using Humalog insulin as ordered. We will titrate incrementally as indicated to optimize metabolic control. We will also consider the addition of oral hypoglycemic therapy as indicated. We will obtain serial chemistries and supplement accordingly as needed. We will also repeat the thyroid studies and determine the need to resume her Tapazole medications as noted. We will follow and advise accordingly. Polly Vu MD
[2017-12-14] MEDS ORDERED: Insulin Detemir 100 Units/ml Inj SC SCH ×2 (22:00)
[2017-12-15] MEDS: Insulin Regular 100 units/ml SC SCH ×4 (06:42→23:15)
[2017-12-15] MEDS: Levalbuterol 1.25 MG/3 ML Inhal Soln UD INH SCH ×3 (08:07→23:47)
[2017-12-15] MEDS: Tiotropium 18 mcg Cap For Inhalation INH SCH (09:11)
[2017-12-15] MEDS: Tmp-Smz 800 mg-160 mg DS Tab PO SCH ×2 (09:12→21:40)
[2017-12-15] MEDS: diltiaZEM 240 mg/24 Hours CD Cap PO SCH (09:12)
[2017-12-15] MEDS: guaiFENesin 600 mg ER Tab PO SCH ×2 (09:12→21:41)
[2017-12-15] MEDS: Pantoprazole 40 mg EC Tab PO SCH (09:13)
[2017-12-15] MEDS: THEOPHYLLINE 400 MG T24(UNIPHYL) PO SCH (09:13)
--- NOTE | 2017-12-15 10:47 | CP.PCM.PN ---
<Aiden Bashir - Last Filed: 12/15/17 11:54> Subjective - Date & Time of Evaluation Date of Evaluation: 12/15/17 Time of Evaluation: 09:00 - Subjective Subjective: Patient seen and examined during morning rounds in Tele. Denies any dyspnea at rest or with conversation. Patient able to expectorate pale yellow sputum. Patient was on High flow NC yesterday. Patient started on Ventimask this morning. NC 5L during meals. O2 sat 97% on ventimask, HR mid 90s. Afebrile, Vitals stable. The neck is supple and trachea is midline. Decreased breath sounds equally bilaterally. No rales, wheezing, Scattered rhonchi present. No pedal edema. Started patient on Ventimask with 50% O2 this morning. Use nasal cannula 5L prn when ventimask off. Xopenex 1.25 mg Q8hr and 0.63 Q4hr PRN. Methylprednisone reduced to 12 mg from 16 mg. Theophyline level 14, Will monitor. Previous EKG 12/12/17 reviewed showed No acute changes from previous EKG. T wave abnormalities present, Can f/u as an Outpatient with systems manager for further evaluation. All other medications will continue unchanged as well. Objective - Vital Signs/Intake and Output Vital Signs (last 24 hours): Temp Pulse Resp BP Pulse Ox 97.7 F 91 H 18 107/68 98 12/15/17 08:17 12/15/17 09:12 12/15/17 08:17 12/15/17 09:12 12/15/17 08:17 - Medications Medications: Current Medications Acetaminophen (Tylenol 325mg Tab) 650 mg PO Q6 PRN PRN Reason: Pain, Mild (1-3)/headache Last Admin: 12/15/17 04:49 Dose: 650 mg Alprazolam (Xanax) 0.25 mg PO Q8 PRN PRN Reason: Anxiety Stop: 12/16/17 10:27 Last Admin: 12/14/17 22:09 Dose: 0.25 mg Anastrozole (Arimidex 1 Mg Tab) 1 mg PO DAILY [facility] Last Admin: 12/15/17 09:14 Dose: 1 mg Aspirin (Aspirin Chewable) 81 mg PO DAILY [facility] Last Admin: 12/15/17 09:11 Dose: 81 mg Atorvastatin Calcium (Lipitor) 40 mg PO HS [facility] Last Admin: 12/14/17 21:43 Dose: 40 mg Dextrose (Dextrose 50% Inj) 0 ml IV STAT PRN; Protocol PRN Reason: Hypoglycemia Protocol Dextrose (Glutose 15) 0 gm PO ONCE PRN; Protocol PRN Reason: Hypoglycemia Protocol Diltiazem HCl (Cardizem Cd) 240 mg PO DAILY [facility] Last Admin: 12/15/17 09:12 Dose: 240 mg Emollient Ointment (Vaseline Oint) 1 pkt TOP BID PRN PRN Reason: Dry skin Last Admin: 12/06/17 18:49 Dose: 1 pkt Gabapentin (Neurontin) 600 mg PO Q8 [facility] Last Admin: 12/15/17 09:11 Dose: 600 mg Glipizide (Glucotrol) 10 mg PO BIDAC [facility] Last Admin: 12/15/17 09:11 Dose: 10 mg Glucagon (Glucagen Diagnostic Kit) 0 mg IM STAT PRN; Protocol PRN Reason: Hypoglycemia Protocol Guaifenesin (Mucinex La) 600 mg PO Q12 [facility] Last Admin: 12/15/17 09:12 Dose: 600 mg Insulin Detemir (Levemir) 16 units SC HS [facility] Last Admin: 12/14/17 23:00 Dose: 16 u Insulin Human Regular (Humulin R) 0 units SC [facility] PRN Reason: Protocol Last Admin: 12/15/17 06:42 Dose: 3 u Levalbuterol HCl (Xopenex) 0.63 mg INH RQ4 PRN PRN Reason: Shortness of Breath Last Admin: 12/13/17 19:20 Dose: 0.63 mg Levalbuterol HCl (Xopenex) 1.25 mg INH RQ8 [facility] Last Admin: 12/15/17 08:07 Dose: 1.25 mg Lidocaine (Lidoderm) 1 ea TD DAILY PRN PRN Reason: Pain, moderate (4-7) Last Admin: 11/29/17 09:38 Dose: 1 ea Methylprednisolone (Medrol) 12 mg PO DAILY [facility] Mirtazapine (Remeron) 15 mg PO HS [facility] Last Admin: 12/14/17 21:44 Dose: 15 mg Ondansetron HCl (Zofran Inj) 4 mg IVP Q4 PRN PRN Reason: Nausea/Vomiting Last Admin: 11/13/17 19:35 Dose: 4 mg Pantoprazole Sodium (Protonix Ec Tab) 40 mg PO DAILY [facility] Last Admin: 12/15/17 09:13 Dose: 40 mg Theophylline (Uniphyl) 400 mg PO DAILY [facility] Last Admin: 12/15/17 09:13 Dose: 400 mg Tiotropium [place] (Spiriva) 18 mcg INH DAILY [facility] Last Admin: 12/15/17 09:11 Dose: 18 mcg Trimethoprim/Sulfamethoxazole (Bactrim Ds Tab) 1 tab PO Q12 [facility] PRN Reason: Protocol Last Admin: 12/15/17 09:12 Dose: 1 tab - Labs Labs: 12/14/17 04:20 12/14/17 04:20 PT 10.3 Seconds (9.8-13.1) 12/11/17 20:08 INR 0.9 12/11/17 20:08 APTT 27.5 Seconds (25.6-37.1) 12/11/17 20:08 <Bala Benz - Last Filed: 12/23/17 07:18> Subjective - Subjective Subjective: Seen and examined together with the residents on rounds in telemetry. All physical findings and ancillary studies were reviewed and discussed. Assessment was made and a plan of care formulated. The entry in the EMR as made by the resident was reviewed and found to be accurate. Objective - Vital Signs/Intake and Output Vital Signs (last 24 hours): Temp Pulse Resp BP Pulse Ox 97.6 F 102 H 18 108/59 L 98 12/23/17 04:38 12/23/17 06:10 12/23/17 04:38 12/23/17 04:38 12/23/17 04:38 Intake and Output: 12/22/17 12/23/17 23:59 11:59 Intake Total 1160 Balance 1160 - Medications Medications: Current Medications Acetaminophen (Tylenol 325mg Tab) 650 mg PO Q6 PRN PRN Reason: Pain, Mild (1-3)/headache Last Admin: 12/21/17 05:23 Dose: 650 mg Alprazolam (Xanax) 0.25 mg PO Q8 PRN PRN Reason: Anxiety Stop: 12/23/17 22:03 Last Admin: 12/22/17 21:44 Dose: 0.25 mg Anastrozole (Arimidex 1 Mg Tab) 1 mg PO DAILY [facility] Last Admin: 12/22/17 09:10 Dose: 1 mg Aspirin (Aspirin Chewable) 81 mg PO DAILY [facility] Last Admin: 12/22/17 09:05 Dose: 81 mg Atorvastatin Calcium (Lipitor) 40 mg PO HS [facility] Last Admin: 12/22/17 21:25 Dose: 40 mg Dextrose (Dextrose 50% Inj) 0 ml IV STAT PRN; Protocol PRN Reason: Hypoglycemia Protocol Dextrose (Glutose 15) 0 gm PO ONCE PRN; Protocol PRN Reason: Hypoglycemia Protocol Diltiazem HCl (Cardizem Cd) 240 mg PO DAILY [facility] Last Admin: 12/22/17 09:06 Dose: 240 mg Emollient Ointment (Vaseline Oint) 1 pkt TOP BID PRN PRN Reason: Dry skin Last Admin: 12/16/17 09:12 Dose: 1 pkt Furosemide (Lasix) 40 mg PO DAILY [facility] Gabapentin (Neurontin) 600 mg PO Q8 [facility] Last Admin: 12/23/17 00:06 Dose: 600 mg Glipizide (Glucotrol) 10 mg PO BIDAC [facility] Last Admin: 12/22/17 17:14 Dose: 10 mg Glucagon (Glucagen Diagnostic Kit) 0 mg IM STAT PRN; Protocol PRN Reason: Hypoglycemia Protocol Guaifenesin (Mucinex La) 600 mg PO Q12 [facility] Last Admin: 12/22/17 21:25 Dose: 600 mg Piperacillin Sod/Tazobactam (Sod 3.375 gm/ Sodium Chloride) 100 mls @ 100 mls/ hr IVPB Q8 [facility] PRN Reason: Protocol Last Admin: 12/23/17 00:08 Dose: 100 mls/hr Vancomycin HCl 500 mg/ Sodium (Chloride) 100 mls @ 100 mls/hr IVPB Q12 [facility] PRN Reason: Protocol Last Admin: 12/22/17 21:25 Dose: 100 mls/hr Insulin Detemir (Levemir) 20 units SC HS [facility] Last Admin: 12/22/17 21:27 Dose: 20 units Insulin Human Regular (Humulin R) 0 units SC ACHS [facility] PRN Reason: Protocol Last Admin: 12/22/17 21:52 Dose: 2 u Ipratropium [place] (Atrovent) 0.5 mg IH RQ8 [facility] Last Admin: 12/23/17 00:22 Dose: 0.5 mg Levalbuterol HCl (Xopenex) 0.63 mg INH RQ4 PRN PRN Reason: Shortness of Breath Last Admin: 12/22/17 03:30 Dose: 0.63 mg Levalbuterol HCl (Xopenex) 1.25 mg INH RQ8 [facility] Last Admin: 12/22/17 23:55 Dose: 1.25 mg Lidocaine (Lidoderm) 1 ea TD DAILY PRN PRN Reason: Pain, moderate (4-7) Last Admin: 11/29/17 09:38 Dose: 1 ea Methylprednisolone (Medrol) 20 mg PO DAILY [facility] Mirtazapine (Remeron) 15 mg PO HS [facility] Last Admin: 12/22/17 21:25 Dose: 15 mg Ondansetron HCl (Zofran Inj) 4 mg IVP Q4 PRN PRN Reason: Nausea/Vomiting Last Admin: 11/13/17 19:35 Dose: 4 mg Pantoprazole Sodium (Protonix Ec Tab) 40 mg PO DAILY [facility] Last Admin: 12/22/17 09:04 Dose: 40 mg Theophylline (Uniphyl) 400 mg PO DAILY [facility] Last Admin: 12/22/17 09:04 Dose: 400 mg - Labs Labs: 12/23/17 05:22 12/23/17 05:22 PT 10.3 Seconds (9.8-13.1) 12/11/17 20:08 INR 0.9 12/11/17 20:08 APTT 27.5 Seconds (25.6-37.1) 12/11/17 20:08
--- NOTE | 2017-12-15 13:50 | CP.PCM.PN ---
Subjective - Date & Time of Evaluation Date of Evaluation: 12/15/17 Time of Evaluation: 13:52 - Subjective Subjective: pt switched to 50% venti mask from HFNC. will monitor today appears to be improving slowly hd stable nad Objective - Vital Signs/Intake and Output Vital Signs (last 24 hours): Temp Pulse Resp BP Pulse Ox 98.5 F 102 H 18 132/67 97 12/15/17 12:27 12/15/17 12:27 12/15/17 12:27 12/15/17 12:27 12/15/17 12:27 Intake and Output: Vitals Reviewed GEN: WDWN, alert, cooperative HEENT: NCAT, PERRL, EOMI HEART: RRR, +S1S2, NO MRG LUNG: coarse bs bl ABD: soft, NT, ND, No HSM, No masses EXT: normal pedal pulses, normal capillary refill NEURO: awake, alert, no focal deficits SKIN: warm, dry PSYCH: normal mood, normal affect - Medications Medications: Current Medications Acetaminophen (Tylenol 325mg Tab) 650 mg PO Q6 PRN PRN Reason: Pain, Mild (1-3)/headache Last Admin: 12/15/17 04:49 Dose: 650 mg Alprazolam (Xanax) 0.25 mg PO Q8 PRN PRN Reason: Anxiety Stop: 12/16/17 10:27 Last Admin: 12/14/17 22:09 Dose: 0.25 mg Anastrozole (Arimidex 1 Mg Tab) 1 mg PO DAILY [facility] Last Admin: 12/15/17 09:14 Dose: 1 mg Aspirin (Aspirin Chewable) 81 mg PO DAILY [facility] Last Admin: 12/15/17 09:11 Dose: 81 mg Atorvastatin Calcium (Lipitor) 40 mg PO HS [facility] Last Admin: 12/14/17 21:43 Dose: 40 mg Dextrose (Dextrose 50% Inj) 0 ml IV STAT PRN; Protocol PRN Reason: Hypoglycemia Protocol Dextrose (Glutose 15) 0 gm PO ONCE PRN; Protocol PRN Reason: Hypoglycemia Protocol Diltiazem HCl (Cardizem Cd) 240 mg PO DAILY [facility] Last Admin: 12/15/17 09:12 Dose: 240 mg Emollient Ointment (Vaseline Oint) 1 pkt TOP BID PRN PRN Reason: Dry skin Last Admin: 12/06/17 18:49 Dose: 1 pkt Gabapentin (Neurontin) 600 mg PO Q8 [facility] Last Admin: 12/15/17 09:11 Dose: 600 mg Glipizide (Glucotrol) 10 mg PO BIDAC [facility] Last Admin: 12/15/17 09:11 Dose: 10 mg Glucagon (Glucagen Diagnostic Kit) 0 mg IM STAT PRN; Protocol PRN Reason: Hypoglycemia Protocol Guaifenesin (Mucinex La) 600 mg PO Q12 [facility] Last Admin: 12/15/17 09:12 Dose: 600 mg Insulin Detemir (Levemir) 16 units SC HS [facility] Last Admin: 12/14/17 23:00 Dose: 16 u Insulin Human Regular (Humulin R) 0 units SC A[facility]S [facility] PRN Reason: Protocol Last Admin: 12/15/17 06:42 Dose: 3 u Levalbuterol HCl (Xopenex) 0.63 mg INH RQ4 PRN PRN Reason: Shortness of Breath Last Admin: 12/13/17 19:20 Dose: 0.63 mg Levalbuterol HCl (Xopenex) 1.25 mg INH RQ8 [facility] Last Admin: 12/15/17 08:07 Dose: 1.25 mg Lidocaine (Lidoderm) 1 ea TD DAILY PRN PRN Reason: Pain, moderate (4-7) Last Admin: 11/29/17 09:38 Dose: 1 ea Methylprednisolone (Medrol) 12 mg PO DAILY [facility] Mirtazapine (Remeron) 15 mg PO HS [facility] Last Admin: 12/14/17 21:44 Dose: 15 mg Ondansetron HCl (Zofran Inj) 4 mg IVP Q4 PRN PRN Reason: Nausea/Vomiting Last Admin: 11/13/17 19:35 Dose: 4 mg Pantoprazole Sodium (Protonix Ec Tab) 40 mg PO DAILY [facility] Last Admin: 12/15/17 09:13 Dose: 40 mg Theophylline (Uniphyl) 400 mg PO DAILY [facility] Last Admin: 12/15/17 09:13 Dose: 400 mg Tiotropium [place] (Spiriva) 18 mcg INH DAILY [facility] Last Admin: 12/15/17 09:11 Dose: 18 mcg Trimethoprim/Sulfamethoxazole (Bactrim Ds Tab) 1 tab PO Q12 [facility] PRN Reason: Protocol Last Admin: 12/15/17 09:12 Dose: 1 tab - Labs Labs: 12/14/17 04:20 12/14/17 04:20 PT 10.3 Seconds (9.8-13.1) 12/11/17 20:08 INR 0.9 12/11/17 20:08 APTT 27.5 Seconds (25.6-37.1) 12/11/17 20:08 Assessment and Plan - Assessment and Plan (Free Text) Plan: 67 yo female with medical history including COPD, CHF, hypothyroidism, history of breast Cancer s/p mastectomy, chronic RUE lymphedema was brought into the ED because of dyspnea. Patient was then found to be in respiratory failure secondary to COPD and CHF exacerbation. Patient was admitted to ICU where she was on bipap and IV steroids and diuretics. She is now in Telemetry This morning High Flow Oxygen at 35L /50%, changed to 50% ventimask. Will monitor. (1) Acute exacerbation of chronic obstructive pulmonary disease (COPD) - cont Nebulizer tx RTC with Xopenex cont PO Methyprednisolone 16 mg daily cont Bactrim and Theophylline CT of chest - ruled out PE (2) DM type II with Hyperglycemia secondary to steroids Accucheck with coverage Increase Levemir to 16 units q hs (3) Acute exacerbation of CHF (congestive heart failure) Diastolic dysfunction Continue current management: Diuretics prn- mikhail give Lasix 20mg IV x 1 today - noted more edema cont Cardizem 240 mg po Daily. (4) C. difficile colitis - Resolved. (5) Hyperthyroidism - discussed case with Dr Vu - TSH now normal - cont Methimazole 5mg po daily 6. HTN (hypertension) Continue current management: Diltiazem and Losartan. increased Diltiazem dose (7) Hx of breast cancer Continue current management: Arimidex. DVT prophylaxis RLE U/S negative for DVT. Pt had Nosebleed - Hold Lovenox for now( will restart in am ), decreased ASA to 81 mg daily
--- NOTE | 2017-12-15 19:13 | PN ---
Copied To: Polly Vu MD Attending MD: Polly Vu MD DATE: 12/15/2017 ENDO FOLLOWUP NOTE LOCATION: In room 408. SUBJECTIVE: This is a 67-year-old female presenting here with congestive heart failure and exacerbation of COPD, now being followed closely for metabolic management. Her glycemic levels are fluctuating, but improved and the glucose values overnight have ranged from 127 to 297 mg/dL. It was 326 at bedtime last night. LABORATORY DATA: The latest chemistry showed a BUN of 24, sodium 136, potassium 4, chloride 98, CO2 of 33, glucose 270, and creatinine 0.5. ASSESSMENT AND PLAN: So at this time, we will modify and titrate her Levemir to 20 units subcutaneously at bedtime daily to start tonight. We will also continue the low-dose correction scale using Humalog insulin as given. Moreover, we will continue the oral hypoglycemic therapy as given with glipizide given as 10 mg b.i.d. before meals to start today as ordered. We will obtain serial chemistries and supplement accordingly as needed. We will follow. Polly Vu MD
[2017-12-15] MEDS: Insulin Detemir 100 Units/ml Inj SC SCH (21:41)
[2017-12-16 06:33] LABS: HEMOGLOBIN 9.1 g/dL (12.0-16.0); MEAN CELL VOLUME 91.3 fl (81.0-99.0); MEAN CORPUSCULAR HEMOGLOBIN 29.9 pg (27.0-31.0); MEAN CORPUSCULAR HGB CONC 32.7 g/dL (33.0-37.0); RBC 3.06 Mil/uL (3.80-5.20); RED CELL DISTRIBUTION WIDTH 21.5 % (11.5-14.5); WHITE BLOOD COUNT 5.8 K/uL (4.8-10.8)
[2017-12-16 06:51] LABS: BLOOD UREA NITROGEN 21 mg/dl (7-17); CALCIUM 8.2 mg/dL (8.4-10.2); GFR NON-AFRICAN AMERICAN > 60
[2017-12-16] MEDS: Insulin Regular 100 units/ml SC SCH ×4 (06:52→22:19)
[2017-12-16] MEDS: Levalbuterol 1.25 MG/3 ML Inhal Soln UD INH SCH ×2 (07:55→15:53)
[2017-12-16] MEDS: Tmp-Smz 800 mg-160 mg DS Tab PO SCH ×2 (09:07→21:35)
[2017-12-16] MEDS: diltiaZEM 240 mg/24 Hours CD Cap PO SCH (09:08)
[2017-12-16] MEDS: guaiFENesin 600 mg ER Tab PO SCH ×2 (09:10→22:00)
[2017-12-16] MEDS: Tiotropium 18 mcg Cap For Inhalation INH SCH (09:11)
[2017-12-16] MEDS: Pantoprazole 40 mg EC Tab PO SCH (09:11)
[2017-12-16] MEDS: THEOPHYLLINE 400 MG T24(UNIPHYL) PO SCH (09:12)
[2017-12-16] MEDS: Petrolatum UD PAK TOP PRN (09:12)
--- NOTE | 2017-12-16 11:24 | CP.PCM.PN ---
Subjective - Date & Time of Evaluation Date of Evaluation: 12/16/17 Time of Evaluation: 10:00 - Subjective Subjective: Resp: better today - off High Flow x 2 days Tolerating 5 liter NC - saturation 93% denies CP SOB better no abd pain no diarrhea no erythema on the RUE edematous arm no fever Objective - Vital Signs/Intake and Output Vital Signs (last 24 hours): Temp Pulse Resp BP Pulse Ox 97.5 F L 95 H 18 108/63 98 12/16/17 09:00 12/16/17 09:08 12/16/17 09:00 12/16/17 09:08 12/16/17 09:00 Intake and Output: 12/16/17 12/16/17 06:59 18:59 Intake Total 0 Balance 0 - Medications Medications: Current Medications Acetaminophen (Tylenol 325mg Tab) 650 mg PO Q6 PRN PRN Reason: Pain, Mild (1-3)/headache Last Admin: 12/16/17 01:18 Dose: 650 mg Anastrozole (Arimidex 1 Mg Tab) 1 mg PO DAILY [facility] Last Admin: 12/16/17 09:06 Dose: 1 mg Aspirin (Aspirin Chewable) 81 mg PO DAILY [facility] Last Admin: 12/16/17 09:07 Dose: 81 mg Atorvastatin Calcium (Lipitor) 40 mg PO HS [facility] Last Admin: 12/15/17 21:41 Dose: 40 mg Dextrose (Dextrose 50% Inj) 0 ml IV STAT PRN; Protocol PRN Reason: Hypoglycemia Protocol Dextrose (Glutose 15) 0 gm PO ONCE PRN; Protocol PRN Reason: Hypoglycemia Protocol Diltiazem HCl (Cardizem Cd) 240 mg PO DAILY [facility] Last Admin: 12/16/17 09:08 Dose: 240 mg Emollient Ointment (Vaseline Oint) 1 pkt TOP BID PRN PRN Reason: Dry skin Last Admin: 12/16/17 09:12 Dose: 1 pkt Gabapentin (Neurontin) 600 mg PO Q8 [facility] Last Admin: 12/16/17 09:11 Dose: 600 mg Glipizide (Glucotrol) 10 mg PO BIDAC [facility] Last Admin: 12/16/17 08:32 Dose: 10 mg Glucagon (Glucagen Diagnostic Kit) 0 mg IM STAT PRN; Protocol PRN Reason: Hypoglycemia Protocol Guaifenesin (Mucinex La) 600 mg PO Q12 [facility] Last Admin: 12/16/17 09:10 Dose: 600 mg Insulin Detemir (Levemir) 20 units SC HS [facility] Last Admin: 12/15/17 21:41 Dose: 20 units Insulin Human Regular (Humulin R) 0 units SC ACHS [facility] PRN Reason: Protocol Last Admin: 12/16/17 06:52 Dose: Not Given Levalbuterol HCl (Xopenex) 0.63 mg INH RQ4 PRN PRN Reason: Shortness of Breath Last Admin: 12/13/17 19:20 Dose: 0.63 mg Levalbuterol HCl (Xopenex) 1.25 mg INH RQ8 [facility] Last Admin: 12/16/17 07:55 Dose: 1.25 mg Lidocaine (Lidoderm) 1 ea TD DAILY PRN PRN Reason: Pain, moderate (4-7) Last Admin: 11/29/17 09:38 Dose: 1 ea Methylprednisolone (Medrol) 12 mg PO DAILY [facility] Last Admin: 12/16/17 09:10 Dose: 12 mg Mirtazapine (Remeron) 15 mg PO HS [facility] Last Admin: 12/15/17 21:41 Dose: 15 mg Ondansetron HCl (Zofran Inj) 4 mg IVP Q4 PRN PRN Reason: Nausea/Vomiting Last Admin: 11/13/17 19:35 Dose: 4 mg Pantoprazole Sodium (Protonix Ec Tab) 40 mg PO DAILY [facility] Last Admin: 12/16/17 09:11 Dose: 40 mg Theophylline (Uniphyl) 400 mg PO DAILY [facility] Last Admin: 12/16/17 09:12 Dose: 400 mg Tiotropium [place] (Spiriva) 18 mcg INH DAILY [facility] Last Admin: 12/16/17 09:11 Dose: 18 mcg Trimethoprim/Sulfamethoxazole (Bactrim Ds Tab) 1 tab PO Q12 [facility] PRN Reason: Protocol Last Admin: 12/16/17 09:07 Dose: 1 tab - Labs Labs: 12/16/17 05:40 12/16/17 05:40 PT 10.3 Seconds (9.8-13.1) 12/11/17 20:08 INR 0.9 12/11/17 20:08 APTT 27.5 Seconds (25.6-37.1) 12/11/17 20:08 - Constitutional Appears: Chronically Ill - Head Exam Head Exam: NORMAL INSPECTION, NORMOCEPHALIC - Eye Exam Eye Exam: Normal appearance Pupil Exam: NORMAL ACCOMMODATION - ENT Exam ENT Exam: Mucous Membranes Moist, Normal External Ear Exam - Neck Exam Neck Exam: Full ROM. absent: Meningismus - Respiratory Exam Respiratory Exam: Decrease BS, Prolonged Expiratory Phase, coarse Rales, Rhonchi No wheezing - Cardiovascular Exam Cardiovascular Exam: Tachycardia, REGULAR RHYTHM, +S1, +S2 - GI/Abdominal Exam GI & Abdominal Exam: Soft, Normal Bowel Sounds. absent: Tenderness Additional comments: abd wall hematoma - Extremities Exam Extremities Exam: Normal Capillary Refill, Pedal Edema. absent: Calf Tenderness Additional comments: right arm swelling/lymphedema - Back Exam Back Exam: absent: CVA tenderness (L), CVA tenderness (R) - Neurological Exam Neurological Exam: Alert, Awake, Oriented x3 - Psychiatric Exam Psychiatric exam: Normal Affect, Normal Mood - Skin Skin Exam: Dry, Normal Color, Warm Assessment and Plan - Assessment and Plan (Free Text) Assessment: 67 yo female with medical history including COPD, CHF, hypothyroidism, history of breast Cancer s/p mastectomy, chronic RUE lymphedema was brought into the ED because of dyspnea. Patient was then found to be in respiratory failure secondary to COPD and CHF exacerbation. Patient was admitted to ICU where she was on bipap and IV steroids and diuretics. She is now in Telemetry At present - on 5 liters Oxygen per NC (1) Acute exacerbation of chronic obstructive pulmonary disease (COPD) - cont Nebulizer tx RTC with Xopenex cont PO Methyprednisolone now decreased to 12 mg daily cont Bactrim and Theophylline CT of chest - ruled out PE (2) DM type II with Hyperglycemia secondary to steroids Accucheck with coverage Increased Levemir to 20 units q hs , cont Glipizide - as rec by DR Vu (3) Acute exacerbation of CHF (congestive heart failure) Diastolic dysfunction Continue current management: Diuretics prn cont Cardizem 240 mg po Daily. (4) C. difficile colitis - Resolved. (5) Hyperthyroidism - discussed case with Dr Vu - TSH now normal ( 3.29) Dr Vu d/c Methimazole 6. HTN (hypertension) Continue current management: Diltiazem and Losartan. increased Diltiazem dose (7) Hx of breast cancer Continue current management: Arimidex. DVT prophylaxis RLE U/S negative for DVT. Pt had Nosebleed - Hold Lovenox for now( will restart in am ), decreased ASA to 81 mg daily
--- NOTE | 2017-12-16 13:08 | CP.PCM.PN ---
Subjective - Date & Time of Evaluation Date of Evaluation: 12/16/17 Time of Evaluation: 13:05 - Subjective Subjective: Lying in bed when seen on rounds, semi-upright. Appears more comfortable than the days preceding. Vital signs have remained stable and her heart rate appears to be controlled. Oxygenation is maintained using standard nasal cannula at 5 L/m. The pharynx is pink and the mucous membranes are moist without exudate. The neck is supple and trachea is midline. Healed tracheostomy site is clean. Hyperresonance on chest percussion with increase in the AP diameter of the thorax. Breath sounds are markedly diminished bilaterally and sonorous rhonchi are heard more so the right than left. Bronchial breathing or egophony. No audible wheezing. Heart sounds are distant and the rhythm is regular and mildly tachycardic. Abdomen is soft and nontender. Trace dependent edema still present without cyanosis. Multiple areas of ecchymosis secondary to anticoagulation. Slow but positive trend is encouraging. Patient has tolerated a lower dose of oral Medrol without ill effects thus far. We'll request follow-up chest x-ray. Continue current antibiotic treatment. Theophylline level remains at the high end of normal range. Continue with physical therapy as tolerated. Objective - Vital Signs/Intake and Output Vital Signs (last 24 hours): Temp Pulse Resp BP Pulse Ox 97.9 F 100 H 18 134/71 96 12/16/17 12:27 12/16/17 12:27 12/16/17 12:27 12/16/17 12:27 12/16/17 12:27 Intake and Output: 12/16/17 12/16/17 11:59 23:59 Intake Total 0 Balance 0 - Medications Medications: Current Medications Acetaminophen (Tylenol 325mg Tab) 650 mg PO Q6 PRN PRN Reason: Pain, Mild (1-3)/headache Last Admin: 12/16/17 01:18 Dose: 650 mg Anastrozole (Arimidex 1 Mg Tab) 1 mg PO DAILY [facility] Last Admin: 12/16/17 09:06 Dose: 1 mg Aspirin (Aspirin Chewable) 81 mg PO DAILY [facility] Last Admin: 12/16/17 09:07 Dose: 81 mg Atorvastatin Calcium (Lipitor) 40 mg PO HS [facility] Last Admin: 12/15/17 21:41 Dose: 40 mg Dextrose (Dextrose 50% Inj) 0 ml IV STAT PRN; Protocol PRN Reason: Hypoglycemia Protocol Dextrose (Glutose 15) 0 gm PO ONCE PRN; Protocol PRN Reason: Hypoglycemia Protocol Diltiazem HCl (Cardizem Cd) 240 mg PO DAILY [facility] Last Admin: 12/16/17 09:08 Dose: 240 mg Emollient Ointment (Vaseline Oint) 1 pkt TOP BID PRN PRN Reason: Dry skin Last Admin: 12/16/17 09:12 Dose: 1 pkt Gabapentin (Neurontin) 600 mg PO Q8 [facility] Last Admin: 12/16/17 09:11 Dose: 600 mg Glipizide (Glucotrol) 10 mg PO BIDAC [facility] Last Admin: 12/16/17 08:32 Dose: 10 mg Glucagon (Glucagen Diagnostic Kit) 0 mg IM STAT PRN; Protocol PRN Reason: Hypoglycemia Protocol Guaifenesin (Mucinex La) 600 mg PO Q12 [facility] Last Admin: 12/16/17 09:10 Dose: 600 mg Insulin Detemir (Levemir) 20 units SC HS [facility] Last Admin: 12/15/17 21:41 Dose: 20 units Insulin Human Regular (Humulin R) 0 units SC ACHS [facility] PRN Reason: Protocol Last Admin: 12/16/17 11:32 Dose: Not Given Levalbuterol HCl (Xopenex) 0.63 mg INH RQ4 PRN PRN Reason: Shortness of Breath Last Admin: 12/13/17 19:20 Dose: 0.63 mg Levalbuterol HCl (Xopenex) 1.25 mg INH RQ8 [facility] Last Admin: 12/16/17 07:55 Dose: 1.25 mg Lidocaine (Lidoderm) 1 ea TD DAILY PRN PRN Reason: Pain, moderate (4-7) Last Admin: 11/29/17 09:38 Dose: 1 ea Methylprednisolone (Medrol) 12 mg PO DAILY [facility] Last Admin: 12/16/17 09:10 Dose: 12 mg Mirtazapine (Remeron) 15 mg PO HS [facility] Last Admin: 12/15/17 21:41 Dose: 15 mg Ondansetron HCl (Zofran Inj) 4 mg IVP Q4 PRN PRN Reason: Nausea/Vomiting Last Admin: 11/13/17 19:35 Dose: 4 mg Pantoprazole Sodium (Protonix Ec Tab) 40 mg PO DAILY [facility] Last Admin: 12/16/17 09:11 Dose: 40 mg Theophylline (Uniphyl) 400 mg PO DAILY [facility] Last Admin: 12/16/17 09:12 Dose: 400 mg Tiotropium [place] (Spiriva) 18 mcg INH DAILY [facility] Last Admin: 12/16/17 09:11 Dose: 18 mcg Trimethoprim/Sulfamethoxazole (Bactrim Ds Tab) 1 tab PO Q12 [facility] PRN Reason: Protocol Last Admin: 12/16/17 09:07 Dose: 1 tab - Labs Labs: 12/16/17 05:40 12/16/17 05:40 PT 10.3 Seconds (9.8-13.1) 12/11/17 20:08 INR 0.9 12/11/17 20:08 APTT 27.5 Seconds (25.6-37.1) 12/11/17 20:08
--- NOTE | 2017-12-16 13:50 | RAD ---
Date of service: 12/16/2017 HISTORY: SOB COMPARISON: No prior. FINDINGS: LUNGS: Trace left pleural effusion is not completely excluded the blunting left costophrenic sulcus may be artifactual. No right pleural effusion. No pneumothorax bilaterally. No acute airspace disease identified at this time. PLEURA: As above. CARDIOVASCULAR: Stable cardiomediastinal silhouette. OSSEOUS STRUCTURES: Partial amputation of the proximal right upper extremity identified with surgical clips noted in the right axilla soft tissues. Orthopedic anchor noted at the left humeral head. Finally cervical spine fusion hardware reiterated. VISUALIZED UPPER ABDOMEN: Normal. OTHER FINDINGS: None. IMPRESSION: Potential minimal left pleural effusion though artifact is favored as discussed above. No acute infiltrate bilaterally or pneumothorax. No pulmonary vascular congestion.
[2017-12-16] MEDS: Insulin Detemir 100 Units/ml Inj SC SCH (22:18)
--- NOTE | 2017-12-16 23:02 | PN ---
Copied To: Polly Vu MD Attending MD: Polly Vu MD DATE: 12/16/2017 ENDOCRINOLOGY FOLLOWUP NOTE LOCATION: Room 408. SUBJECTIVE: This is a 67-year-old female with recent uncontrolled type 2 insulin-requiring diabetes related to the recent IV to oral steroid therapy and is now being followed closely for metabolic management. Her glycemic levels are fluctuating but much improved overnight as noted with glucose levels ranging from 158 to 248 mg/dL. Her bedtime glucose, however, was still elevated at 321 mg/dL. LABORATORY DATA: Her latest chemistry showed a BUN of 21, sodium 136, potassium 4.2, chloride 96, CO2 of 34, glucose 251, and creatinine 0.6. ASSESSMENT AND PLAN: So at this time, we will continue the same basal insulin given as Levemir at 20 units subcu at bedtime daily as ordered. We will continue also the glipizide given as 10 mg b.i.d. before meals as ordered. We will obtain serial chemistries and supplement accordingly as needed. We will follow. Polly Vu MD
[2017-12-17] MEDS: Levalbuterol 0.63 MG/3 ML Inhal Soln UD INH PRN (00:48)
[2017-12-17] MEDS: Levalbuterol 1.25 MG/3 ML Inhal Soln UD INH SCH ×3 (00:56→15:46)
[2017-12-17] MEDS: Insulin Regular 100 units/ml SC SCH ×4 (06:42→22:03)
[2017-12-17] MEDS: THEOPHYLLINE 400 MG T24(UNIPHYL) PO SCH (09:55)
[2017-12-17] MEDS: Tiotropium 18 mcg Cap For Inhalation INH SCH (09:55)
[2017-12-17] MEDS: Tmp-Smz 800 mg-160 mg DS Tab PO SCH ×2 (09:56→21:58)
[2017-12-17] MEDS: diltiaZEM 240 mg/24 Hours CD Cap PO SCH (09:56)
[2017-12-17] MEDS: guaiFENesin 600 mg ER Tab PO SCH ×2 (09:56→21:58)
[2017-12-17] MEDS: Pantoprazole 40 mg EC Tab PO SCH (09:56)
--- NOTE | 2017-12-17 10:25 | CP.PCM.PN ---
Subjective - Date & Time of Evaluation Date of Evaluation: 12/17/17 Time of Evaluation: 09:00 - Subjective Subjective: Off High Flow x 3 days now Tolerating O2 per NC at 5 liters -saturating 90-94% denies CP SOB better no abd pain no diarrhea no erythema on the RUE edematous arm no fever pedal edema better Objective - Vital Signs/Intake and Output Vital Signs (last 24 hours): Temp Pulse Resp BP Pulse Ox 98.1 F 92 H 18 132/72 98 12/17/17 08:10 12/17/17 09:56 12/17/17 08:10 12/17/17 09:56 12/17/17 08:10 - Medications Medications: Current Medications Acetaminophen (Tylenol 325mg Tab) 650 mg PO Q6 PRN PRN Reason: Pain, Mild (1-3)/headache Last Admin: 12/16/17 01:18 Dose: 650 mg Alprazolam (Xanax) 0.25 mg PO Q8 PRN PRN Reason: Anxiety Stop: 12/23/17 22:03 Last Admin: 12/16/17 22:18 Dose: 0.25 mg Anastrozole (Arimidex 1 Mg Tab) 1 mg PO DAILY [facility] Last Admin: 12/17/17 10:01 Dose: 1 mg Aspirin (Aspirin Chewable) 81 mg PO DAILY [facility] Last Admin: 12/17/17 09:56 Dose: 81 mg Atorvastatin Calcium (Lipitor) 40 mg PO HS [facility] Last Admin: 12/16/17 21:35 Dose: 40 mg Dextrose (Dextrose 50% Inj) 0 ml IV STAT PRN; Protocol PRN Reason: Hypoglycemia Protocol Dextrose (Glutose 15) 0 gm PO ONCE PRN; Protocol PRN Reason: Hypoglycemia Protocol Diltiazem HCl (Cardizem Cd) 240 mg PO DAILY [facility] Last Admin: 12/17/17 09:56 Dose: 240 mg Emollient Ointment (Vaseline Oint) 1 pkt TOP BID PRN PRN Reason: Dry skin Last Admin: 12/16/17 09:12 Dose: 1 pkt Gabapentin (Neurontin) 600 mg PO Q8 [facility] Last Admin: 12/17/17 09:56 Dose: 600 mg Glipizide (Glucotrol) 10 mg PO BIDAC [facility] Last Admin: 12/17/17 09:55 Dose: 10 mg Glucagon (Glucagen Diagnostic Kit) 0 mg IM STAT PRN; Protocol PRN Reason: Hypoglycemia Protocol Guaifenesin (Mucinex La) 600 mg PO Q12 [facility] Last Admin: 12/17/17 09:56 Dose: 600 mg Insulin Detemir (Levemir) 20 units SC HS [facility] Last Admin: 12/16/17 22:18 Dose: 20 units Insulin Human Regular (Humulin R) 0 units SC ACHS [facility] PRN Reason: Protocol Last Admin: 12/17/17 06:42 Dose: Not Given Levalbuterol HCl (Xopenex) 0.63 mg INH RQ4 PRN PRN Reason: Shortness of Breath Last Admin: 12/13/17 19:20 Dose: 0.63 mg Levalbuterol HCl (Xopenex) 1.25 mg INH RQ8 [facility] Last Admin: 12/17/17 07:53 Dose: 1.25 mg Lidocaine (Lidoderm) 1 ea TD DAILY PRN PRN Reason: Pain, moderate (4-7) Last Admin: 11/29/17 09:38 Dose: 1 ea Methylprednisolone (Medrol) 12 mg PO DAILY [facility] Last Admin: 12/17/17 09:56 Dose: 12 mg Mirtazapine (Remeron) 15 mg PO HS [facility] Last Admin: 12/16/17 21:35 Dose: 15 mg Ondansetron HCl (Zofran Inj) 4 mg IVP Q4 PRN PRN Reason: Nausea/Vomiting Last Admin: 11/13/17 19:35 Dose: 4 mg Pantoprazole Sodium (Protonix Ec Tab) 40 mg PO DAILY [facility] Last Admin: 12/17/17 09:56 Dose: 40 mg Theophylline (Uniphyl) 400 mg PO DAILY [facility] Last Admin: 12/17/17 09:55 Dose: 400 mg Tiotropium [place] (Spiriva) 18 mcg INH DAILY [facility] Last Admin: 12/17/17 09:55 Dose: 18 mcg Trimethoprim/Sulfamethoxazole (Bactrim Ds Tab) 1 tab PO Q12 [facility] PRN Reason: Protocol Last Admin: 12/17/17 09:56 Dose: 1 tab - Labs Labs: 12/16/17 05:40 12/16/17 05:40 PT 10.3 Seconds (9.8-13.1) 12/11/17 20:08 INR 0.9 08/05/18 20:08 APTT 27.5 Seconds (25.6-37.1) 12/11/17 20:08 - Constitutional Appears: Chronically Ill - Head Exam Head Exam: NORMAL INSPECTION, NORMOCEPHALIC - Eye Exam Eye Exam: Normal appearance Pupil Exam: NORMAL ACCOMMODATION - ENT Exam ENT Exam: Mucous Membranes Moist, Normal External Ear Exam - Neck Exam Neck Exam: Full ROM. absent: Meningismus - Respiratory Exam Respiratory Exam: Decrease BS, Prolonged Expiratory Phase, coarse Rales, Rhonchi No wheezing - Cardiovascular Exam Cardiovascular Exam: REGULAR RHYTHM, +S1, +S2 - GI/Abdominal Exam GI & Abdominal Exam: Soft, Normal Bowel Sounds. absent: Tenderness Additional comments: abd wall hematoma - Extremities Exam Extremities Exam: Normal Capillary Refill, Pedal Edema. absent: Calf Tenderness Additional comments: right arm swelling/lymphedema - Back Exam Back Exam: absent: CVA tenderness (L), CVA tenderness (R) - Neurological Exam Neurological Exam: Alert, Awake, Oriented x3 - Psychiatric Exam Psychiatric exam: Normal Affect, Normal Mood - Skin Skin Exam: Dry, Normal Color, Warm Assessment and Plan - Assessment and Plan (Free Text) Assessment: 67 yo female with medical history including COPD, CHF, hypothyroidism, history of breast Cancer s/p mastectomy, chronic RUE lymphedema was brought into the ED because of dyspnea. Patient was then found to be in respiratory failure secondary to COPD and CHF exacerbation. Patient was admitted to ICU where she was on bipap and IV steroids and diuretics. She is now in Telemetry At present - on 5 liters Oxygen per NC ( Off High Flow) 1. Acute on Chronic Hypercapneic and Hypoxemic Respiratory Failure sec to Acute exacerbation of chronic obstructive pulmonary disease (COPD) - pt is off High Flow , has been on O2 per NC at 5 L - cont Nebulizer tx RTC with Xopenex cont PO Methyprednisolone now decreased to 12 mg daily cont Bactrim and Theophylline CT of chest - ruled out PE (2) DM type II with Hyperglycemia secondary to steroids Accucheck with coverage Increased Levemir to 20 units q hs , cont Glipizide - as rec by DR Vu (3) Acute exacerbation of CHF (congestive heart failure) Diastolic dysfunction Continue current management: Diuretics prn cont Cardizem 240 mg po Daily. (4) C. difficile colitis - Resolved. (5) Hyperthyroidism - discussed case with Dr Vu - TSH now normal ( 3.29) per Dr Vu d/c Methimazole 6. HTN (hypertension) Continue current management: Diltiazem and Losartan. increased Diltiazem dose (7) Hx of breast cancer Continue current management: Arimidex. DVT prophylaxis RLE U/S negative for DVT. Pt had Nosebleed - Hold Lovenox for now( will restart in am ), decreased ASA to 81 mg daily
--- NOTE | 2017-12-17 12:03 | CP.PCM.PN ---
Subjective - Date & Time of Evaluation Date of Evaluation: 12/17/17 Time of Evaluation: 12:03 - Subjective Subjective: Appears comfortable when seen on rounds. Seems less dyspneic while at rest. Cough is still congested, but less so. Unable to expectorate, but raises secretions and swallows them. Was able to do physical therapy yesterday, limited by [place], but improving. Has been stable with reduced dose of steroids PO. Still mildly tachycardic, but generally 100 BPM or less. Breath sounds are diminished bilaterally with sonorous rhonchi in both lower lobes. No audible wheezing or bronchial breathing. Scattered dry to medium rales in LL' s. Trace dependant edema without cyanosis. Scattered resolving ecchymoses. Heart rate regular, tachy, distant HS. Pharynx remains pink and moist w/o exudate. Continue present regimen with Medrol 12 MG POOD. All other aspects of therapy remain the same as well. Hopefully she can progress to [place] on Tuesday. Will also consider dropping Medrol to 8MG OD if stable on Tuesday. Objective - Vital Signs/Intake and Output Vital Signs (last 24 hours): Temp Pulse Resp BP Pulse Ox 98.1 F 92 H 18 132/72 98 12/17/17 08:10 12/17/17 09:56 12/17/17 08:10 12/17/17 09:56 12/17/17 08:10 - Medications Medications: Current Medications Acetaminophen (Tylenol 325mg Tab) 650 mg PO Q6 PRN PRN Reason: Pain, Mild (1-3)/headache Last Admin: 12/16/17 01:18 Dose: 650 mg Alprazolam (Xanax) 0.25 mg PO Q8 PRN PRN Reason: Anxiety Stop: 12/23/17 22:03 Last Admin: 12/16/17 22:18 Dose: 0.25 mg Anastrozole (Arimidex 1 Mg Tab) 1 mg PO DAILY [facility] Last Admin: 12/17/17 10:01 Dose: 1 mg Aspirin (Aspirin Chewable) 81 mg PO DAILY [facility] Last Admin: 12/17/17 09:56 Dose: 81 mg Atorvastatin Calcium (Lipitor) 40 mg PO HS [facility] Last Admin: 12/16/17 21:35 Dose: 40 mg Dextrose (Dextrose 50% Inj) 0 ml IV STAT PRN; Protocol PRN Reason: Hypoglycemia Protocol Dextrose (Glutose 15) 0 gm PO ONCE PRN; Protocol PRN Reason: Hypoglycemia Protocol Diltiazem HCl (Cardizem Cd) 240 mg PO DAILY [facility] Last Admin: 12/17/17 09:56 Dose: 240 mg Emollient Ointment (Vaseline Oint) 1 pkt TOP BID PRN PRN Reason: Dry skin Last Admin: 12/16/17 09:12 Dose: 1 pkt Gabapentin (Neurontin) 600 mg PO Q8 [facility] Last Admin: 12/17/17 09:56 Dose: 600 mg Glipizide (Glucotrol) 10 mg PO BIDAC [facility] Last Admin: 12/17/17 09:55 Dose: 10 mg Glucagon (Glucagen Diagnostic Kit) 0 mg IM STAT PRN; Protocol PRN Reason: Hypoglycemia Protocol Guaifenesin (Mucinex La) 600 mg PO Q12 [facility] Last Admin: 12/17/17 09:56 Dose: 600 mg Insulin Detemir (Levemir) 20 units SC HS [facility] Last Admin: 12/16/17 22:18 Dose: 20 units Insulin Human Regular (Humulin R) 0 units SC ACHS [facility] PRN Reason: Protocol Last Admin: 12/17/17 06:42 Dose: Not Given Levalbuterol HCl (Xopenex) 0.63 mg INH RQ4 PRN PRN Reason: Shortness of Breath Last Admin: 12/13/17 19:20 Dose: 0.63 mg Levalbuterol HCl (Xopenex) 1.25 mg INH RQ8 [facility] Last Admin: 12/17/17 07:53 Dose: 1.25 mg Lidocaine (Lidoderm) 1 ea TD DAILY PRN PRN Reason: Pain, moderate (4-7) Last Admin: 11/29/17 09:38 Dose: 1 ea Methylprednisolone (Medrol) 12 mg PO DAILY [facility] Last Admin: 12/17/17 09:56 Dose: 12 mg Mirtazapine (Remeron) 15 mg PO HS [facility] Last Admin: 12/16/17 21:35 Dose: 15 mg Ondansetron HCl (Zofran Inj) 4 mg IVP Q4 PRN PRN Reason: Nausea/Vomiting Last Admin: 11/13/17 19:35 Dose: 4 mg Pantoprazole Sodium (Protonix Ec Tab) 40 mg PO DAILY [facility] Last Admin: 12/17/17 09:56 Dose: 40 mg Theophylline (Uniphyl) 400 mg PO DAILY [facility] Last Admin: 12/17/17 09:55 Dose: 400 mg Tiotropium [place] (Spiriva) 18 mcg INH DAILY [facility] Last Admin: 12/17/17 09:55 Dose: 18 mcg Trimethoprim/Sulfamethoxazole (Bactrim Ds Tab) 1 tab PO Q12 [facility] PRN Reason: Protocol Last Admin: 12/17/17 09:56 Dose: 1 tab - Labs Labs: 12/16/17 05:40 12/16/17 05:40 PT 10.3 Seconds (9.8-13.1) 12/11/17 20:08 INR 0.9 12/11/17 20:08 APTT 27.5 Seconds (25.6-37.1) 12/11/17 20:08
--- NOTE | 2017-12-17 19:14 | PN ---
Copied To: Polly Vu MD Attending MD: Polly Vu MD DATE: 12/17/2017 ENDO FOLLOWUP NOTE LOCATION: In room 408. SUBJECTIVE: This is a 67-year-old female with recent uncontrolled type insulin requiring diabetes recent thyroid therapy as given and is now being followed closely for metabolic management. Her glucose values are fluctuating but improved, and the glucose levels have ranged from 158 to 248 mg/dL. LABORATORY DATA: Her latest chemistries showed a BUN of 21, sodium 136, potassium 4.2, chloride 96, CO2 of 34, glucose 251, and creatinine 0.6. ASSESSMENT AND PLAN: So, at this time, we will continue the same basal insulin given as Levemir at 20 units subcu at bedtime daily as given with a low dose correction scale using regular insulin as ordered. We will continue also the glipizide given as 10 mg b.i.d. before meals as ordered. We will obtain serial thyroid studies and . We will follow. Polly Vu MD
[2017-12-17] MEDS: Insulin Detemir 100 Units/ml Inj SC SCH (21:59)
[2017-12-18] MEDS: Levalbuterol 1.25 MG/3 ML Inhal Soln UD INH SCH ×4 (00:19→23:27)
[2017-12-18 07:10] LABS: HEMOGLOBIN 8.7 g/dL (12.0-16.0); MEAN CELL VOLUME 91.5 fl (81.0-99.0); MEAN CORPUSCULAR HEMOGLOBIN 30.2 pg (27.0-31.0); RBC 2.88 Mil/uL (3.80-5.20); RED CELL DISTRIBUTION WIDTH 21.9 % (11.5-14.5); WHITE BLOOD COUNT 5.5 K/uL (4.8-10.8)
[2017-12-18 07:24] LABS: BLOOD UREA NITROGEN 18 mg/dl (7-17); CALCIUM 8.4 mg/dL (8.4-10.2); GFR NON-AFRICAN AMERICAN > 60
[2017-12-18] MEDS: Tmp-Smz 800 mg-160 mg DS Tab PO SCH ×2 (09:00→21:31)
[2017-12-18] MEDS: THEOPHYLLINE 400 MG T24(UNIPHYL) PO SCH (09:00)
[2017-12-18] MEDS: guaiFENesin 600 mg ER Tab PO SCH ×2 (09:00→21:31)
[2017-12-18] MEDS ORDERED: Enoxaparin 40 mg Syringe SC SCH (09:00)
[2017-12-18] MEDS: Pantoprazole 40 mg EC Tab PO SCH (09:00)
[2017-12-18] MEDS: Tiotropium 18 mcg Cap For Inhalation INH SCH (09:00)
--- NOTE | 2017-12-18 09:18 | CP.PCM.PN ---
Subjective - Date & Time of Evaluation Date of Evaluation: 12/18/17 Time of Evaluation: 08:30 - Subjective Subjective: No fever Tolerating 5 liters of Oxygen per NC during the daytime and Ventimask q hs occ SOB and cough denies Chest pain no abd pain nor diarrhea Objective - Vital Signs/Intake and Output Vital Signs (last 24 hours): Temp Pulse Resp BP Pulse Ox 97.5 F L 96 H 18 117/74 95 12/18/17 08:25 12/18/17 08:25 12/18/17 08:25 12/18/17 08:25 12/18/17 08:25 - Medications Medications: Current Medications Acetaminophen (Tylenol 325mg Tab) 650 mg PO Q6 PRN PRN Reason: Pain, Mild (1-3)/headache Last Admin: 12/16/17 01:18 Dose: 650 mg Alprazolam (Xanax) 0.25 mg PO Q8 PRN PRN Reason: Anxiety Stop: 12/23/17 22:03 Last Admin: 12/17/17 22:14 Dose: 0.25 mg Anastrozole (Arimidex 1 Mg Tab) 1 mg PO DAILY [facility] Last Admin: 12/17/17 10:01 Dose: 1 mg Aspirin (Aspirin Chewable) 81 mg PO DAILY [facility] Last Admin: 12/17/17 09:56 Dose: 81 mg Atorvastatin Calcium (Lipitor) 40 mg PO HS [facility] Last Admin: 12/17/17 21:58 Dose: 40 mg Dextrose (Dextrose 50% Inj) 0 ml IV STAT PRN; Protocol PRN Reason: Hypoglycemia Protocol Dextrose (Glutose 15) 0 gm PO ONCE PRN; Protocol PRN Reason: Hypoglycemia Protocol Diltiazem HCl (Cardizem Cd) 240 mg PO DAILY [facility] Last Admin: 12/17/17 09:56 Dose: 240 mg Emollient Ointment (Vaseline Oint) 1 pkt TOP BID PRN PRN Reason: Dry skin Last Admin: 12/16/17 09:12 Dose: 1 pkt Enoxaparin Sodium (Lovenox) 40 mg SC DAILY [facility] PRN Reason: Protocol Gabapentin (Neurontin) 600 mg PO Q8 [facility] Last Admin: 12/18/17 00:33 Dose: 600 mg Glipizide (Glucotrol) 10 mg PO BIDAC [facility] Last Admin: 12/17/17 17:51 Dose: 10 mg Glucagon (Glucagen Diagnostic Kit) 0 mg IM STAT PRN; Protocol PRN Reason: Hypoglycemia Protocol Guaifenesin (Mucinex La) 600 mg PO Q12 [facility] Last Admin: 12/17/17 21:58 Dose: 600 mg Insulin Detemir (Levemir) 20 units SC HS [facility] Last Admin: 12/17/17 21:59 Dose: 20 units Insulin Human Regular (Humulin R) 0 units SC ACHS [facility] PRN Reason: Protocol Last Admin: 12/17/17 22:03 Dose: Not Given Levalbuterol HCl (Xopenex) 0.63 mg INH RQ4 PRN PRN Reason: Shortness of Breath Last Admin: 12/13/17 19:20 Dose: 0.63 mg Levalbuterol HCl (Xopenex) 1.25 mg INH RQ8 [facility] Last Admin: 12/18/17 07:35 Dose: 1.25 mg Lidocaine (Lidoderm) 1 ea TD DAILY PRN PRN Reason: Pain, moderate (4-7) Last Admin: 11/29/17 09:38 Dose: 1 ea Methylprednisolone (Medrol) 12 mg PO DAILY [facility] Last Admin: 12/17/17 09:56 Dose: 12 mg Mirtazapine (Remeron) 15 mg PO HS [facility] Last Admin: 12/17/17 21:59 Dose: 15 mg Ondansetron HCl (Zofran Inj) 4 mg IVP Q4 PRN PRN Reason: Nausea/Vomiting Last Admin: 11/13/17 19:35 Dose: 4 mg Pantoprazole Sodium (Protonix Ec Tab) 40 mg PO DAILY [facility] Last Admin: 12/17/17 09:56 Dose: 40 mg Theophylline (Uniphyl) 400 mg PO DAILY [facility] Last Admin: 12/17/17 09:55 Dose: 400 mg Tiotropium [place] (Spiriva) 18 mcg INH DAILY [facility] Last Admin: 12/17/17 09:55 Dose: 18 mcg Trimethoprim/Sulfamethoxazole (Bactrim Ds Tab) 1 tab PO Q12 [facility] PRN Reason: Protocol Last Admin: 12/17/17 21:58 Dose: 1 tab - Labs Labs: 12/18/17 05:31 12/18/17 05:31 PT 10.3 Seconds (9.8-13.1) 12/11/17 20:08 INR 0.9 12/11/17 20:08 APTT 27.5 Seconds (25.6-37.1) 12/11/17 20:08 - Constitutional Appears: Chronically Ill - Head Exam Head Exam: NORMAL INSPECTION, NORMOCEPHALIC - Eye Exam Eye Exam: Normal appearance Pupil Exam: NORMAL ACCOMMODATION - ENT Exam ENT Exam: Mucous Membranes Moist, Normal External Ear Exam - Neck Exam Neck Exam: Full ROM. absent: Meningismus - Respiratory Exam Respiratory Exam: Decrease BS, Prolonged Expiratory Phase, coarse Rales, Rhonchi No wheezing - Cardiovascular Exam Cardiovascular Exam: REGULAR RHYTHM, +S1, +S2 - GI/Abdominal Exam GI & Abdominal Exam: Soft, Normal Bowel Sounds. absent: Tenderness Additional comments: abd wall hematoma - Extremities Exam Extremities Exam: Normal Capillary Refill, Pedal Edema. absent: Calf Tenderness Additional comments: right arm swelling/lymphedema - Back Exam Back Exam: absent: CVA tenderness (L), CVA tenderness (R) - Neurological Exam Neurological Exam: Alert, Awake, Oriented x3 - Psychiatric Exam Psychiatric exam: Normal Affect, Normal Mood - Skin Skin Exam: Dry, Normal Color, Warm Assessment and Plan - Assessment and Plan (Free Text) Assessment: 67 yo female with medical history including COPD, CHF, hypothyroidism, history of breast Cancer s/p mastectomy, chronic RUE lymphedema was brought into the ED because of dyspnea. Patient was then found to be in respiratory failure secondary to COPD and CHF exacerbation. Patient was admitted to ICU where she was on bipap and IV steroids and diuretics. She is now in Telemetry At present - on 5 liters Oxygen per NC ( Off High Flow) 1. Acute on Chronic Hypercapneic and Hypoxemic Respiratory Failure sec to Acute exacerbation of chronic obstructive pulmonary disease (COPD) - pt is off High Flow , has been on O2 per NC at 5 L during the daytime and Ventimask q hs - cont Nebulizer tx RTC with Xopenex cont PO Methyprednisolone now decreased to 12 mg daily cont Bactrim and Theophylline CT of chest - ruled out PE (2) DM type II with Hyperglycemia secondary to steroids Accucheck with coverage Increased Levemir to 20 units q hs , cont Glipizide - as rec by DR Vu (3) Acute exacerbation of CHF (congestive heart failure) Diastolic dysfunction Continue current management: Diuretics prn cont Cardizem 240 mg po Daily. (4) C. difficile colitis - Resolved. (5) Hyperthyroidism - discussed case with Dr Vu - TSH now normal ( 3.29) per Dr Vu d/c Methimazole 6. HTN (hypertension) Continue current management: Diltiazem and Losartan. increased Diltiazem dose (7) Hx of breast cancer Continue current management: Arimidex. DVT prophylaxis RLE U/S negative for DVT. restart Lovenox ( d/c due to nosebleed) decreased ASA to 81 mg daily
[2017-12-18 10:28] LABS: IRON 55 ug/dL (37-170)
[2017-12-18] MEDS: diltiaZEM 240 mg/24 Hours CD Cap PO SCH (10:33)
[2017-12-18 10:41] LABS: % IRON SATURATION 18 % (20-55); TOTAL IRON BINDING CAPACITY 314 ug/dL (250-450)
[2017-12-18 11:08] LABS: FERRITIN 38.9 ng/Ml (11.1-264.0)
[2017-12-18] MEDS: Insulin Regular 100 units/ml SC SCH ×3 (12:00→22:22)
--- NOTE | 2017-12-18 16:25 | PN ---
Copied To: Polly Vu MD Attending MD: Polly Vu MD DATE: 12/18/2017 ENDO FOLLOWUP NOTE LOCATION: In room 408. SUBJECTIVE: This is a 67-year-old female with recent uncontrolled type 2 insulin-requiring diabetes, now being followed closely for metabolic management. Her glycemic levels are fluctuating, but much improved at this time and the latest glucose levels overnight have ranged from 156 to 209 and 237 mg/dL. LABORATORY DATA: Her latest chemistry showed a BUN of 18, sodium 135, potassium 3.7, chloride 95, CO2 of 32, glucose 197, and creatinine 0.5. ASSESSMENT AND PLAN: So at this time, we will continue the same basal insulin given as Levemir at 20 units subcutaneously at bedtime daily as given. We will continue also the glipizide given as 10 mg b.i.d. as ordered. We will obtain serial chemistries and supplement accordingly as needed. We will follow. Polly Vu MD
[2017-12-18] MEDS: Insulin Detemir 100 Units/ml Inj SC SCH (21:32)
[2017-12-19] MEDS: Insulin Regular 100 units/ml SC SCH ×4 (06:41→21:22)
[2017-12-19] MEDS: Levalbuterol 1.25 MG/3 ML Inhal Soln UD INH SCH ×2 (07:37→15:24)
[2017-12-19] MEDS: THEOPHYLLINE 400 MG T24(UNIPHYL) PO SCH (10:40)
[2017-12-19] MEDS: Pantoprazole 40 mg EC Tab PO SCH (10:40)
[2017-12-19] MEDS: guaiFENesin 600 mg ER Tab PO SCH ×2 (10:40→21:22)
[2017-12-19] MEDS: Tiotropium 18 mcg Cap For Inhalation INH SCH (10:41)
[2017-12-19] MEDS: diltiaZEM 240 mg/24 Hours CD Cap PO SCH (10:42)
--- NOTE | 2017-12-19 12:01 | CP.PCM.PN ---
<Aiden Bashir - Last Filed: 12/19/17 13:58> Subjective - Date & Time of Evaluation Date of Evaluation: 12/19/17 Time of Evaluation: 07:20 - Subjective Subjective: Patient S & E in Telemetry during morning rounds this morning. Patient lying in bed, Less dyspneic at rest. Cough and congestions still present, Unable to expectorate. Patient had nosebleed yesterday. Lovenox still on hold. Last PT on Tuesday. Patient encouraged to continue doing PT today. Vital signs stable, Still tachycardic BP 122/66. O2 91% on nasal cannula, HR 104. Oxygenation is maintained using standard nasal cannula at 5 L/m. Pharynx pink and moist w/o exudate. Breath sounds are diminished bilaterally with sonorous rhonchi in both lower lobes. No audible wheezing or bronchial breathing. Scattered dry to medium rales in LL' s. Heart sounds are distant and the rhythm is regular and mildly tachycardic. No pedal edema. Multiple ecchymosis present on B/L UE and LE. Patient clinically stable and slowly improving. Will order CXR today. previous CXR consistent with blunting of Left CP angle. Will order ABG. Continue present regimen with Medrol 12 MG PO OD. Theophylline level remains high normal(14). Continue with physical therapy as tolerated. Patient to go to [facility] upon approval. Objective - Vital Signs/Intake and Output Vital Signs (last 24 hours): Temp Pulse Resp BP Pulse Ox 97.5 F L 95 H 20 122/66 92 L 12/19/17 08:00 12/19/17 10:42 12/19/17 08:00 12/19/17 10:42 12/19/17 08:00 - Medications Medications: Current Medications Acetaminophen (Tylenol 325mg Tab) 650 mg PO Q6 PRN PRN Reason: Pain, Mild (1-3)/headache Last Admin: 12/19/17 03:38 Dose: 650 mg Alprazolam (Xanax) 0.25 mg PO Q8 PRN PRN Reason: Anxiety Stop: 12/23/17 22:03 Last Admin: 12/18/17 21:37 Dose: 0.25 mg Anastrozole (Arimidex 1 Mg Tab) 1 mg PO DAILY [facility] Last Admin: 12/19/17 10:39 Dose: 1 mg Aspirin (Aspirin Chewable) 81 mg PO DAILY [facility] Last Admin: 12/19/17 10:42 Dose: 81 mg Atorvastatin Calcium (Lipitor) 40 mg PO HS [facility] Last Admin: 12/18/17 21:31 Dose: 40 mg Dextrose (Dextrose 50% Inj) 0 ml IV STAT PRN; Protocol PRN Reason: Hypoglycemia Protocol Dextrose (Glutose 15) 0 gm PO ONCE PRN; Protocol PRN Reason: Hypoglycemia Protocol Diltiazem HCl (Cardizem Cd) 240 mg PO DAILY [facility] Last Admin: 12/19/17 10:42 Dose: 240 mg Emollient Ointment (Vaseline Oint) 1 pkt TOP BID PRN PRN Reason: Dry skin Last Admin: 12/16/17 09:12 Dose: 1 pkt Gabapentin (Neurontin) 600 mg PO Q8 [facility] Last Admin: 12/19/17 10:40 Dose: 600 mg Glipizide (Glucotrol) 10 mg PO BIDAC [facility] Last Admin: 12/19/17 10:41 Dose: 10 mg Glucagon (Glucagen Diagnostic Kit) 0 mg IM STAT PRN; Protocol PRN Reason: Hypoglycemia Protocol Guaifenesin (Mucinex La) 600 mg PO Q12 [facility] Last Admin: 12/19/17 10:40 Dose: 600 mg Insulin Detemir (Levemir) 20 units SC HS [facility] Last Admin: 12/18/17 21:32 Dose: 20 units Insulin Human Regular (Humulin R) 0 units SC [facility] PRN Reason: Protocol Last Admin: 12/19/17 06:41 Dose: Not Given Levalbuterol HCl (Xopenex) 0.63 mg INH RQ4 PRN PRN Reason: Shortness of Breath Last Admin: 12/13/17 19:20 Dose: 0.63 mg Levalbuterol HCl (Xopenex) 1.25 mg INH RQ8 [facility] Last Admin: 12/19/17 07:37 Dose: 1.25 mg Lidocaine (Lidoderm) 1 ea TD DAILY PRN PRN Reason: Pain, moderate (4-7) Last Admin: 11/29/17 09:38 Dose: 1 ea Methylprednisolone (Medrol) 12 mg PO DAILY [facility] Last Admin: 12/19/17 10:39 Dose: 12 mg Mirtazapine (Remeron) 15 mg PO HS [facility] Last Admin: 12/18/17 21:31 Dose: 15 mg Ondansetron HCl (Zofran Inj) 4 mg IVP Q4 PRN PRN Reason: Nausea/Vomiting Last Admin: 11/13/17 19:35 Dose: 4 mg Pantoprazole Sodium (Protonix Ec Tab) 40 mg PO DAILY [facility] Last Admin: 12/19/17 10:40 Dose: 40 mg Theophylline (Uniphyl) 400 mg PO DAILY [facility] Last Admin: 12/19/17 10:40 Dose: 400 mg Tiotropium [place] (Spiriva) 18 mcg INH DAILY [facility] Last Admin: 12/19/17 10:41 Dose: 18 mcg - Labs Labs: 12/18/17 05:31 12/18/17 05:31 PT 10.3 Seconds (9.8-13.1) 12/11/17 20:08 INR 0.9 12/11/17 20:08 APTT 27.5 Seconds (25.6-37.1) 12/11/17 20:08 <Bala Benz - Last Filed: 12/23/17 07:25> Subjective - Subjective Subjective: Seen and examined with the resident on rounds in telemetry. All physical findings and ancillary studies were reviewed. The case was discussed and a plan of care formulated. The entry in the EMR as made by the resident was reviewed and is accurate. Objective - Vital Signs/Intake and Output Vital Signs (last 24 hours): Temp Pulse Resp BP Pulse Ox 97.6 F 102 H 18 108/59 L 98 12/23/17 04:38 12/23/17 06:10 12/23/17 04:38 12/23/17 04:38 12/23/17 04:38 Intake and Output: 12/22/17 12/23/17 23:59 11:59 Intake Total 1160 Balance 1160 - Medications Medications: Current Medications Acetaminophen (Tylenol 325mg Tab) 650 mg PO Q6 PRN PRN Reason: Pain, Mild (1-3)/headache Last Admin: 12/21/17 05:23 Dose: 650 mg Alprazolam (Xanax) 0.25 mg PO Q8 PRN PRN Reason: Anxiety Stop: 12/23/17 22:03 Last Admin: 12/22/17 21:44 Dose: 0.25 mg Anastrozole (Arimidex 1 Mg Tab) 1 mg PO DAILY [facility] Last Admin: 12/22/17 09:10 Dose: 1 mg Aspirin (Aspirin Chewable) 81 mg PO DAILY [facility] Last Admin: 12/22/17 09:05 Dose: 81 mg Atorvastatin Calcium (Lipitor) 40 mg PO HS [facility] Last Admin: 12/22/17 21:25 Dose: 40 mg Dextrose (Dextrose 50% Inj) 0 ml IV STAT PRN; Protocol PRN Reason: Hypoglycemia Protocol Dextrose (Glutose 15) 0 gm PO ONCE PRN; Protocol PRN Reason: Hypoglycemia Protocol Diltiazem HCl (Cardizem Cd) 240 mg PO DAILY [facility] Last Admin: 12/22/17 09:06 Dose: 240 mg Emollient Ointment (Vaseline Oint) 1 pkt TOP BID PRN PRN Reason: Dry skin Last Admin: 12/16/17 09:12 Dose: 1 pkt Furosemide (Lasix) 40 mg PO DAILY [facility] Gabapentin (Neurontin) 600 mg PO Q8 [facility] Last Admin: 12/23/17 00:06 Dose: 600 mg Glipizide (Glucotrol) 10 mg PO BIDAC [facility] Last Admin: 12/22/17 17:14 Dose: 10 mg Glucagon (Glucagen Diagnostic Kit) 0 mg IM STAT PRN; Protocol PRN Reason: Hypoglycemia Protocol Guaifenesin (Mucinex La) 600 mg PO Q12 [facility] Last Admin: 12/22/17 21:25 Dose: 600 mg Piperacillin Sod/Tazobactam (Sod 3.375 gm/ Sodium Chloride) 100 mls @ 100 mls/ hr IVPB Q8 [facility] PRN Reason: Protocol Last Admin: 12/23/17 00:08 Dose: 100 mls/hr Vancomycin HCl 500 mg/ Sodium (Chloride) 100 mls @ 100 mls/hr IVPB Q12 [facility] PRN Reason: Protocol Last Admin: 12/22/17 21:25 Dose: 100 mls/hr Insulin Detemir (Levemir) 20 units SC HS [facility] Last Admin: 12/22/17 21:27 Dose: 20 units Insulin Human Regular (Humulin R) 0 units SC ACHS [facility] PRN Reason: Protocol Last Admin: 12/22/17 21:52 Dose: 2 u Ipratropium [place] (Atrovent) 0.5 mg IH RQ8 [facility] Last Admin: 12/23/17 00:22 Dose: 0.5 mg Levalbuterol HCl (Xopenex) 0.63 mg INH RQ4 PRN PRN Reason: Shortness of Breath Last Admin: 12/22/17 03:30 Dose: 0.63 mg Levalbuterol HCl (Xopenex) 1.25 mg INH RQ8 [facility] Last Admin: 12/22/17 23:55 Dose: 1.25 mg Lidocaine (Lidoderm) 1 ea TD DAILY PRN PRN Reason: Pain, moderate (4-7) Last Admin: 11/29/17 09:38 Dose: 1 ea Methylprednisolone (Medrol) 20 mg PO DAILY [facility] Mirtazapine (Remeron) 15 mg PO HS [facility] Last Admin: 12/22/17 21:25 Dose: 15 mg Ondansetron HCl (Zofran Inj) 4 mg IVP Q4 PRN PRN Reason: Nausea/Vomiting Last Admin: 11/13/17 19:35 Dose: 4 mg Pantoprazole Sodium (Protonix Ec Tab) 40 mg PO DAILY [facility] Last Admin: 12/22/17 09:04 Dose: 40 mg Theophylline (Uniphyl) 400 mg PO DAILY [facility] Last Admin: 12/22/17 09:04 Dose: 400 mg - Labs Labs: 12/23/17 05:22 12/23/17 05:22 PT 10.3 Seconds (9.8-13.1) 12/11/17 20:08 INR 0.9 12/11/17 20:08 APTT 27.5 Seconds (25.6-37.1) 12/11/17 20:08
--- NOTE | 2017-12-19 13:17 | CP.PCM.PN ---
Subjective - Date & Time of Evaluation Date of Evaluation: 12/19/17 Time of Evaluation: 09:00 - Subjective Subjective: Pt remains of 5 liters Oxygen q am and Ventimask 40 % q hs Saturation 91-94% denies CP still with cough no abd pain, no diarrhea no fever Lovenox was restarted yesterday morning and she had nosebleed again last night - will d/c Lovenox and just keep her on ASA 81 mg Objective - Vital Signs/Intake and Output Vital Signs (last 24 hours): Temp Pulse Resp BP Pulse Ox 97.5 F L 95 H 20 122/66 92 L 12/19/17 08:00 12/19/17 10:42 12/19/17 08:00 12/19/17 10:42 12/19/17 08:00 - Medications Medications: Current Medications Acetaminophen (Tylenol 325mg Tab) 650 mg PO Q6 PRN PRN Reason: Pain, Mild (1-3)/headache Last Admin: 12/19/17 03:38 Dose: 650 mg Alprazolam (Xanax) 0.25 mg PO Q8 PRN PRN Reason: Anxiety Stop: 12/23/17 22:03 Last Admin: 12/18/17 21:37 Dose: 0.25 mg Anastrozole (Arimidex 1 Mg Tab) 1 mg PO DAILY [facility] Last Admin: 12/19/17 10:39 Dose: 1 mg Aspirin (Aspirin Chewable) 81 mg PO DAILY [facility] Last Admin: 12/19/17 10:42 Dose: 81 mg Atorvastatin Calcium (Lipitor) 40 mg PO HS [facility] Last Admin: 12/18/17 21:31 Dose: 40 mg Dextrose (Dextrose 50% Inj) 0 ml IV STAT PRN; Protocol PRN Reason: Hypoglycemia Protocol Dextrose (Glutose 15) 0 gm PO ONCE PRN; Protocol PRN Reason: Hypoglycemia Protocol Diltiazem HCl (Cardizem Cd) 240 mg PO DAILY [facility] Last Admin: 12/19/17 10:42 Dose: 240 mg Emollient Ointment (Vaseline Oint) 1 pkt TOP BID PRN PRN Reason: Dry skin Last Admin: 12/16/17 09:12 Dose: 1 pkt Gabapentin (Neurontin) 600 mg PO Q8 [facility] Last Admin: 12/19/17 10:40 Dose: 600 mg Glipizide (Glucotrol) 10 mg PO BIDAC [facility] Last Admin: 12/19/17 10:41 Dose: 10 mg Glucagon (Glucagen Diagnostic Kit) 0 mg IM STAT PRN; Protocol PRN Reason: Hypoglycemia Protocol Guaifenesin (Mucinex La) 600 mg PO Q12 [facility] Last Admin: 12/19/17 10:40 Dose: 600 mg Insulin Detemir (Levemir) 20 units SC HS [facility] Last Admin: 12/18/17 21:32 Dose: 20 units Insulin Human Regular (Humulin R) 0 units SC ACHS [facility] PRN Reason: Protocol Last Admin: 12/19/17 12:08 Dose: Not Given Levalbuterol HCl (Xopenex) 0.63 mg INH RQ4 PRN PRN Reason: Shortness of Breath Last Admin: 12/13/17 19:20 Dose: 0.63 mg Levalbuterol HCl (Xopenex) 1.25 mg INH RQ8 [facility] Last Admin: 12/19/17 07:37 Dose: 1.25 mg Lidocaine (Lidoderm) 1 ea TD DAILY PRN PRN Reason: Pain, moderate (4-7) Last Admin: 11/29/17 09:38 Dose: 1 ea Methylprednisolone (Medrol) 12 mg PO DAILY [facility] Last Admin: 12/19/17 10:39 Dose: 12 mg Mirtazapine (Remeron) 15 mg PO HS [facility] Last Admin: 12/18/17 21:31 Dose: 15 mg Ondansetron HCl (Zofran Inj) 4 mg IVP Q4 PRN PRN Reason: Nausea/Vomiting Last Admin: 11/13/17 19:35 Dose: 4 mg Pantoprazole Sodium (Protonix Ec Tab) 40 mg PO DAILY [facility] Last Admin: 12/19/17 10:40 Dose: 40 mg Theophylline (Uniphyl) 400 mg PO DAILY [facility] Last Admin: 12/19/17 10:40 Dose: 400 mg Tiotropium [place] (Spiriva) 18 mcg INH DAILY [facility] Last Admin: 12/19/17 10:41 Dose: 18 mcg - Labs Labs: 12/18/17 05:31 12/18/17 05:31 PT 10.3 Seconds (9.8-13.1) 12/11/17 20:08 INR 0.9 12/11/17 20:08 APTT 27.5 Seconds (25.6-37.1) 12/11/17 20:08 - Constitutional Appears: Chronically Ill - Head Exam Head Exam: NORMAL INSPECTION, NORMOCEPHALIC - Eye Exam Eye Exam: Normal appearance Pupil Exam: NORMAL ACCOMMODATION - ENT Exam ENT Exam: Mucous Membranes Moist, Normal External Ear Exam - Neck Exam Neck Exam: Full ROM. absent: Meningismus - Respiratory Exam Respiratory Exam: Decrease BS, Prolonged Expiratory Phase, coarse Rales, Rhonchi No wheezing - Cardiovascular Exam Cardiovascular Exam: REGULAR RHYTHM, +S1, +S2 - GI/Abdominal Exam GI & Abdominal Exam: Soft, Normal Bowel Sounds. absent: Tenderness Additional comments: abd wall hematoma - Extremities Exam Extremities Exam: Normal Capillary Refill, Pedal Edema. absent: Calf Tenderness Additional comments: right arm swelling/lymphedema - Back Exam Back Exam: absent: CVA tenderness (L), CVA tenderness (R) - Neurological Exam Neurological Exam: Alert, Awake, Oriented x3 - Psychiatric Exam Psychiatric exam: Normal Affect, Normal Mood - Skin Skin Exam: Dry, Normal Color, Warm Assessment and Plan - Assessment and Plan (Free Text) Assessment: 67 yo female with medical history including COPD, CHF, hypothyroidism, history of breast Cancer s/p mastectomy, chronic RUE lymphedema was brought into the ED because of dyspnea. Patient was then found to be in respiratory failure secondary to COPD and CHF exacerbation. Patient was admitted to ICU where she was on bipap and IV steroids and diuretics. She is now in Telemetry At present - Pt is off High Flow Oxygen - she in on 5 liter NC during the day and 40% Ventimask q hs 1. Acute on Chronic Hypercapneic and Hypoxemic Respiratory Failure sec to Acute exacerbation of chronic obstructive pulmonary disease (COPD) - pt is off High Flow , has been on O2 per NC at 5 L during the daytime and Ventimask q hs - cont Nebulizer tx RTC with Xopenex cont PO Methyprednisolone now decreased to 12 mg daily cont Bactrim and Theophylline CT of chest - ruled out PE (2) DM type II with Hyperglycemia secondary to steroids Accucheck with coverage Increased Levemir to 20 units q hs , cont Glipizide - as rec by DR Vu (3) Acute exacerbation of CHF (congestive heart failure) Diastolic dysfunction Continue current management: Diuretics prn cont Cardizem 240 mg po Daily. (4) C. difficile colitis - Resolved. (5) Hyperthyroidism - discussed case with Dr Vu - TSH now normal ( 3.29) per Dr Vu d/c Methimazole 6. HTN (hypertension) Continue current management: Diltiazem and Losartan. increased Diltiazem dose (7) Hx of breast cancer Continue current management: Arimidex. DVT prophylaxis RLE U/S negative for DVT. d/c Lovenox ( d/c due to nosebleed) decreased ASA to 81 mg daily
[2017-12-19 13:20] LABS: ABG ALLEN TEST YES; ARTERIAL BLOOD GAS HCO3 33.8 mmol/L (21-28); ARTERIAL BLOOD GAS O2 CAPACITY 12.3 mL/dL (16-24); ARTERIAL BLOOD GAS O2 CONTENT 12.1 ML/dL (15-23); ARTERIAL BLOOD GAS O2 SAT 98.3 % (95-98); ARTERIAL BLOOD GAS PCO2 50 mm/Hg (35-45); ARTERIAL BLOOD GAS PH 7.47 (7.35-7.45); ARTERIAL BLOOD GAS PO2 78 mm/Hg (80-100); ARTERIAL BLOOD GAS TCO2 37.9 mmol/L (22-28)
--- NOTE | 2017-12-19 13:25 | RAD ---
Date of service: 12/19/2017 PROCEDURE: CHEST RADIOGRAPH, 1 VIEW HISTORY: SOB COMPARISON: 12/16/2017. FINDINGS: LUNGS: Clear. PLEURA: No pneumothorax or pleural fluid seen. CARDIOVASCULAR: No radiographic findings to suggest acute or significant cardiovascular disease. OSSEOUS STRUCTURES: No significant abnormalities. Stable findings right shoulder right humerus. VISUALIZED UPPER ABDOMEN: Normal. OTHER FINDINGS: None. IMPRESSION: No active disease. No acute/significant interval changes.
[2017-12-19] MEDS ORDERED: Albuterol-Ipratrop 3 mg / 0.5 (3 ml) UD INH STA (13:48)
[2017-12-19] MEDS: Levalbuterol 0.63 MG/3 ML Inhal Soln UD INH PRN (14:22)
--- NOTE | 2017-12-19 18:26 | PN ---
Copied To: Polly Vu MD Attending MD: Polly Vu MD DATE: 12/19/2017 ENDO FOLLOWUP NOTE LOCATION: Room 408. SUBJECTIVE: This is a 67-year-old female with recent uncontrolled type 2 insulin-requiring diabetes, now being followed closely for metabolic management. She has been switched over from IV to oral steroids as noted, but continues to have occasional bouts of glycemic fluctuations and the glucose levels overnight have ranged from 102 to 145 mg/dL. LABORATORY DATA: Her latest chemistry showed BUN of 18, sodium 135, potassium 3.7, chloride 95, CO2 of 32, glucose 197, and creatinine 0.5. ASSESSMENT AND PLAN: So, at this time, we will continue the same basal insulin given as Levemir at 20 units subcu at bedtime daily as given. We will also continue the glipizide given as 10 mg b.i.d. before meals as ordered. We will titrate incrementally as indicated to optimize metabolic control. We will obtain serial chemistries and supplement accordingly needed. We will follow. Polly Vu MD [facility] # [id number]
[2017-12-19] MEDS: Insulin Detemir 100 Units/ml Inj SC SCH (21:22)
[2017-12-20] MEDS: Levalbuterol 1.25 MG/3 ML Inhal Soln UD INH SCH ×3 (00:37→15:31)
[2017-12-20 06:13] LABS: BASO % 0.2 % (0.0-2.0); EOS % 0.1 % (0.0-4.0); HEMOGLOBIN 8.6 g/dL (12.0-16.0); LYMPH # 0.3 K/uL (1.0-4.3); MEAN CELL VOLUME 91.5 fl (81.0-99.0); MEAN CORPUSCULAR HEMOGLOBIN 30.2 pg (27.0-31.0); MEAN PLATELET VOLUME 7.2 fl (7.2-11.7); MONO # 0.3 K/uL (0.0-0.8); MONO % 6.1 % (0.0-10.0); NEUT # 3.7 K/uL (1.8-7.0); NEUT % 85.6 % (50.0-75.0); NRBC % 1.6 % (0.0-0.0); PLATELET COUNT 159 K/uL (130-400); RBC 2.86 Mil/uL (3.80-5.20); RED CELL DISTRIBUTION WIDTH 22.9 % (11.5-14.5); WHITE BLOOD COUNT 4.3 K/uL (4.8-10.8)
[2017-12-20 07:04] LABS: ALB/GLOB RATIO 1.3 (1.0-2.1); ALBUMIN 3.1 g/dL (3.5-5.0); ALT/SGPT 58 U/L (9-52); AST/SGOT 25 U/L (14-36); BLOOD UREA NITROGEN 17 mg/dl (7-17); CALCIUM 8.7 mg/dL (8.4-10.2); GFR NON-AFRICAN AMERICAN > 60
[2017-12-20] MEDS: Insulin Regular 100 units/ml SC SCH ×4 (07:38→22:05)
[2017-12-20] MEDS: Tiotropium 18 mcg Cap For Inhalation INH SCH (08:57)
[2017-12-20] MEDS: guaiFENesin 600 mg ER Tab PO SCH ×2 (08:57→21:38)
[2017-12-20] MEDS: Pantoprazole 40 mg EC Tab PO SCH (08:58)
[2017-12-20] MEDS: diltiaZEM 240 mg/24 Hours CD Cap PO SCH (08:58)
[2017-12-20] MEDS: THEOPHYLLINE 400 MG T24(UNIPHYL) PO SCH (08:58)
[2017-12-20] MEDS ORDERED: methylPREDNISolone 40 MG in Sodium Chloride 0.9% 50 ML IVPB ONE (09:30)
[2017-12-20] MEDS ORDERED: Sodium Chloride 3% for Inhalation 4 ML VIAL.NEB IH PRN (09:43)
[2017-12-20] MEDS ORDERED: MethylPREDNISolone 40 mg Vial IVP ONE (09:45)
--- NOTE | 2017-12-20 11:32 | CP.PCM.PN ---
<Aiden Bashir - Last Filed: 12/20/17 11:54> Subjective - Date & Time of Evaluation Date of Evaluation: 12/20/17 Time of Evaluation: 07:30 - Subjective Subjective: Patient S & E in Telemetry during morning rounds this morning. Reports having unprovoked episode of SOB yesterday at 1.00 pm. Improved with ventimask, xanax and lasix 20 mg. Patient remained on ventimask overnight. Currently on NC 5L. Cough and congestion still present, Unable to expectorate. Patient had 2-3 episodes of nosebleed yesterday. Lovenox still on hold. Did not do any physical therapy yesterday due to SOB. Denies fever, chills. Vital signs stable. Still tachycardic. SPO2 89% and HR 107. Pharynx pink and moist w/o exudate. Breath sounds are diminished bilaterally. more so on left lower lobe. Congestion of left lower lobe. Egophony and broncheal breath sounds present left LL. No wheezing. Dry to medium rales LL posteriorly. No pedal edema. Multiple ecchymosis present on B/L UE and LE. CXR and physical exam findings consistent with left lower lobe consolidation. Will order Sputum culture today. Chest PT left lower lobe QID(clap and cough in sidelying position) Start Vancomycin 500 mg/100 ml IVPB BID and Zosyn 3.375/100 ml IVPB TID. Solumedrol 40 mg IVP today ONCE. D/C spiriva and start Atrovent TID. C/W methylprednosione 12 mg PO QD CBC and BMP tomorrow AM. Objective - Vital Signs/Intake and Output Vital Signs (last 24 hours): Temp Pulse Resp BP Pulse Ox 97.8 F 94 H 18 121/63 95 12/20/17 08:18 12/20/17 08:58 12/20/17 08:18 12/20/17 08:58 12/20/17 08:18 - Medications Medications: Current Medications Acetaminophen (Tylenol 325mg Tab) 650 mg PO Q6 PRN PRN Reason: Pain, Mild (1-3)/headache Last Admin: 12/19/17 03:38 Dose: 650 mg Alprazolam (Xanax) 0.25 mg PO Q8 PRN PRN Reason: Anxiety Stop: 12/23/17 22:03 Last Admin: 12/19/17 21:25 Dose: 0.25 mg Anastrozole (Arimidex 1 Mg Tab) 1 mg PO DAILY [facility] Last Admin: 12/20/17 09:00 Dose: 1 mg Aspirin (Aspirin Chewable) 81 mg PO DAILY [facility] Last Admin: 12/20/17 08:59 Dose: 81 mg Atorvastatin Calcium (Lipitor) 40 mg PO HS [facility] Last Admin: 12/19/17 21:22 Dose: 40 mg Dextrose (Dextrose 50% Inj) 0 ml IV STAT PRN; Protocol PRN Reason: Hypoglycemia Protocol Dextrose (Glutose 15) 0 gm PO ONCE PRN; Protocol PRN Reason: Hypoglycemia Protocol Diltiazem HCl (Cardizem Cd) 240 mg PO DAILY [facility] Last Admin: 12/20/17 08:58 Dose: 240 mg Emollient Ointment (Vaseline Oint) 1 pkt TOP BID PRN PRN Reason: Dry skin Last Admin: 12/16/17 09:12 Dose: 1 pkt Gabapentin (Neurontin) 600 mg PO Q8 [facility] Last Admin: 12/20/17 08:57 Dose: 600 mg Glipizide (Glucotrol) 10 mg PO BIDAC [facility] Last Admin: 12/20/17 08:58 Dose: 10 mg Glucagon (Glucagen Diagnostic Kit) 0 mg IM STAT PRN; Protocol PRN Reason: Hypoglycemia Protocol Guaifenesin (Mucinex La) 600 mg PO Q12 [facility] Last Admin: 12/20/17 08:57 Dose: 600 mg Piperacillin Sod/Tazobactam (Sod 3.375 gm/ Sodium Chloride) 100 mls @ 100 mls/ hr IVPB Q8 [facility] PRN Reason: Protocol Vancomycin HCl 500 mg/ Sodium (Chloride) 100 mls @ 100 mls/hr IVPB Q12 [facility] PRN Reason: Protocol Insulin Detemir (Levemir) 20 units SC HS [facility] Last Admin: 12/19/17 21:22 Dose: 20 units Insulin Human Regular (Humulin R) 0 units SC ACHS [facility] PRN Reason: Protocol Last Admin: 12/20/17 07:38 Dose: Not Given Ipratropium [place] (Atrovent) 0.5 mg IH RQ8 [facility] Levalbuterol HCl (Xopenex) 0.63 mg INH RQ4 PRN PRN Reason: Shortness of Breath Last Admin: 12/19/17 14:22 Dose: 0.63 mg Levalbuterol HCl (Xopenex) 1.25 mg INH RQ8 [facility] Last Admin: 12/20/17 07:33 Dose: 1.25 mg Lidocaine (Lidoderm) 1 ea TD DAILY PRN PRN Reason: Pain, moderate (4-7) Last Admin: 11/29/17 09:38 Dose: 1 ea Methylprednisolone (Medrol) 12 mg PO DAILY [facility] Last Admin: 12/20/17 08:57 Dose: 12 mg Mirtazapine (Remeron) 15 mg PO HS [facility] Last Admin: 12/19/17 21:22 Dose: 15 mg Ondansetron HCl (Zofran Inj) 4 mg IVP Q4 PRN PRN Reason: Nausea/Vomiting Last Admin: 11/13/17 19:35 Dose: 4 mg Pantoprazole Sodium (Protonix Ec Tab) 40 mg PO DAILY [facility] Last Admin: 12/20/17 08:58 Dose: 40 mg Theophylline (Uniphyl) 400 mg PO DAILY [facility] Last Admin: 12/20/17 08:58 Dose: 400 mg - Labs Labs: 12/20/17 04:20 12/20/17 04:20 PT 10.3 Seconds (9.8-13.1) 12/11/17 20:08 INR 0.9 12/11/17 20:08 APTT 27.5 Seconds (25.6-37.1) 12/11/17 20:08 <Bala Benz - Last Filed: 12/22/17 21:11> Subjective - Subjective Subjective: Seen and examined together with the residents on rounds. Physical findings and all ancillary studies were reviewed. Assessment and plan of care was discussed and agreed upon. Entry, as made in the EMR by the resident, is accurate. Objective - Vital Signs/Intake and Output Vital Signs (last 24 hours): Temp Pulse Resp BP Pulse Ox 98.2 F 100 H 20 114/62 99 12/22/17 19:39 12/22/17 19:39 12/22/17 19:39 12/22/17 19:39 12/22/17 19:39 Intake and Output: 12/22/17 12/22/17 11:59 23:59 Intake Total 1160 Balance 1160 - Medications Medications: Current Medications Acetaminophen (Tylenol 325mg Tab) 650 mg PO Q6 PRN PRN Reason: Pain, Mild (1-3)/headache Last Admin: 12/21/17 05:23 Dose: 650 mg Alprazolam (Xanax) 0.25 mg PO Q8 PRN PRN Reason: Anxiety Stop: 12/23/17 22:03 Last Admin: 12/21/17 21:34 Dose: 0.25 mg Anastrozole (Arimidex 1 Mg Tab) 1 mg PO DAILY [facility] Last Admin: 12/22/17 09:10 Dose: 1 mg Aspirin (Aspirin Chewable) 81 mg PO DAILY [facility] Last Admin: 12/22/17 09:05 Dose: 81 mg Atorvastatin Calcium (Lipitor) 40 mg PO HS [facility] Last Admin: 12/21/17 21:30 Dose: 40 mg Dextrose (Dextrose 50% Inj) 0 ml IV STAT PRN; Protocol PRN Reason: Hypoglycemia Protocol Dextrose (Glutose 15) 0 gm PO ONCE PRN; Protocol PRN Reason: Hypoglycemia Protocol Diltiazem HCl (Cardizem Cd) 240 mg PO DAILY [facility] Last Admin: 12/22/17 09:06 Dose: 240 mg Emollient Ointment (Vaseline Oint) 1 pkt TOP BID PRN PRN Reason: Dry skin Last Admin: 12/16/17 09:12 Dose: 1 pkt Furosemide (Lasix) 40 mg PO DAILY [facility] Gabapentin (Neurontin) 600 mg PO Q8 [facility] Last Admin: 12/22/17 17:39 Dose: 600 mg Glipizide (Glucotrol) 10 mg PO BIDAC [facility] Last Admin: 12/22/17 17:14 Dose: 10 mg Glucagon (Glucagen Diagnostic Kit) 0 mg IM STAT PRN; Protocol PRN Reason: Hypoglycemia Protocol Guaifenesin (Mucinex La) 600 mg PO Q12 [facility] Last Admin: 12/22/17 09:04 Dose: 600 mg Piperacillin Sod/Tazobactam (Sod 3.375 gm/ Sodium Chloride) 100 mls @ 100 mls/ hr IVPB Q8 [facility] PRN Reason: Protocol Last Admin: 12/22/17 17:39 Dose: 100 mls/hr Vancomycin HCl 500 mg/ Sodium (Chloride) 100 mls @ 100 mls/hr IVPB Q12 [facility] PRN Reason: Protocol Last Admin: 12/22/17 09:15 Dose: 100 mls/hr Insulin Detemir (Levemir) 20 units SC [facility] Last Admin: 12/21/17 21:31 Dose: 20 units Insulin Human Regular (Humulin R) 0 units SC [facility] PRN Reason: Protocol Last Admin: 12/22/17 17:14 Dose: Not Given Ipratropium Staples (Atrovent) 0.5 mg IH RQ8 [facility] Last Admin: 12/22/17 15:21 Dose: 0.5 mg Levalbuterol HCl (Xopenex) 0.63 mg INH RQ4 PRN PRN Reason: Shortness of Breath Last Admin: 12/22/17 03:30 Dose: 0.63 mg Levalbuterol HCl (Xopenex) 1.25 mg INH RQ8 [facility] Last Admin: 12/22/17 15:21 Dose: 1.25 mg Lidocaine (Lidoderm) 1 ea TD DAILY PRN PRN Reason: Pain, moderate (4-7) Last Admin: 11/29/17 09:38 Dose: 1 ea Methylprednisolone (Medrol) 20 mg PO DAILY [facility] Mirtazapine (Remeron) 15 mg PO [facility] Last Admin: 12/21/17 21:30 Dose: 15 mg Ondansetron HCl (Zofran Inj) 4 mg IVP Q4 PRN PRN Reason: Nausea/Vomiting Last Admin: 11/13/17 19:35 Dose: 4 mg Pantoprazole Sodium (Protonix Ec Tab) 40 mg PO DAILY [facility] Last Admin: 12/22/17 09:04 Dose: 40 mg Theophylline (Uniphyl) 400 mg PO DAILY [facility] Last Admin: 12/22/17 09:04 Dose: 400 mg - Labs Labs: 12/22/17 05:20 12/22/17 05:20 PT 10.3 Seconds (9.8-13.1) 12/11/17 20:08 INR 0.9 12/11/17 20:08 APTT 27.5 Seconds (25.6-37.1) 12/11/17 20:08
[2017-12-20 12:16] LABS: ANISOCYTOSIS MODERATE; LYMPHOCYTE 10 % (20-50); MONOCYTE 4 % (0-10); NEUTROPHIL 86 % (42-75); PLATELET ESTIMATE NORMAL (NORMAL); TOTAL CELLS COUNTED 100
[2017-12-20 12:19] LABS: HYPOCHROMIC MODERATE; OVALOCYTES SLIGHT; SCHISTOCYTES SLIGHT; TEARDROP CELLS SLIGHT; TOXIC GRANULATION PRESENT
[2017-12-20] MEDS: Piperacillin/Tazobact 3.375 GM in Sodium Chloride 0.9% 100 ML IVPB SCH ×2 (12:36→17:16)
--- NOTE | 2017-12-20 12:38 | CP.PCM.PN ---
Subjective - Date & Time of Evaluation Date of Evaluation: 12/20/17 Time of Evaluation: 12:00 - Subjective Subjective: Pt had episode of SOB yesterday CXR done - discussed with Dr Benz- noted LLL consolidation + dry cough no fever no CP no abd pain Objective - Vital Signs/Intake and Output Vital Signs (last 24 hours): Temp Pulse Resp BP Pulse Ox 98.4 F 108 H 18 118/57 L 95 12/20/17 12:29 12/20/17 12:29 12/20/17 12:29 12/20/17 12:29 12/20/17 12:29 - Medications Medications: Current Medications Acetaminophen (Tylenol 325mg Tab) 650 mg PO Q6 PRN PRN Reason: Pain, Mild (1-3)/headache Last Admin: 12/19/17 03:38 Dose: 650 mg Alprazolam (Xanax) 0.25 mg PO Q8 PRN PRN Reason: Anxiety Stop: 12/23/17 22:03 Last Admin: 12/19/17 21:25 Dose: 0.25 mg Anastrozole (Arimidex 1 Mg Tab) 1 mg PO DAILY [facility] Last Admin: 12/20/17 09:00 Dose: 1 mg Aspirin (Aspirin Chewable) 81 mg PO DAILY [facility] Last Admin: 12/20/17 08:59 Dose: 81 mg Atorvastatin Calcium (Lipitor) 40 mg PO HS [facility] Last Admin: 12/19/17 21:22 Dose: 40 mg Dextrose (Dextrose 50% Inj) 0 ml IV STAT PRN; Protocol PRN Reason: Hypoglycemia Protocol Dextrose (Glutose 15) 0 gm PO ONCE PRN; Protocol PRN Reason: Hypoglycemia Protocol Diltiazem HCl (Cardizem Cd) 240 mg PO DAILY [facility] Last Admin: 12/20/17 08:58 Dose: 240 mg Emollient Ointment (Vaseline Oint) 1 pkt TOP BID PRN PRN Reason: Dry skin Last Admin: 12/16/17 09:12 Dose: 1 pkt Gabapentin (Neurontin) 600 mg PO Q8 [facility] Last Admin: 12/20/17 08:57 Dose: 600 mg Glipizide (Glucotrol) 10 mg PO BIDAC [facility] Last Admin: 12/20/17 08:58 Dose: 10 mg Glucagon (Glucagen Diagnostic Kit) 0 mg IM STAT PRN; Protocol PRN Reason: Hypoglycemia Protocol Guaifenesin (Mucinex La) 600 mg PO Q12 [facility] Last Admin: 12/20/17 08:57 Dose: 600 mg Piperacillin Sod/Tazobactam (Sod 3.375 gm/ Sodium Chloride) 100 mls @ 100 mls/ hr IVPB Q8 [facility] PRN Reason: Protocol Last Admin: 12/20/17 12:36 Dose: 100 mls/hr Vancomycin HCl 500 mg/ Sodium (Chloride) 100 mls @ 100 mls/hr IVPB Q12 [facility] PRN Reason: Protocol Last Admin: 12/20/17 12:37 Dose: 100 mls/hr Insulin Detemir (Levemir) 20 units SC HS [facility] Last Admin: 12/19/17 21:22 Dose: 20 units Insulin Human Regular (Humulin R) 0 units SC ACHS [facility] PRN Reason: Protocol Last Admin: 12/20/17 12:32 Dose: Not Given Ipratropium [place] (Atrovent) 0.5 mg IH RQ8 [facility] Levalbuterol HCl (Xopenex) 0.63 mg INH RQ4 PRN PRN Reason: Shortness of Breath Last Admin: 12/19/17 14:22 Dose: 0.63 mg Levalbuterol HCl (Xopenex) 1.25 mg INH RQ8 [facility] Last Admin: 12/20/17 07:33 Dose: 1.25 mg Lidocaine (Lidoderm) 1 ea TD DAILY PRN PRN Reason: Pain, moderate (4-7) Last Admin: 11/29/17 09:38 Dose: 1 ea Methylprednisolone (Medrol) 12 mg PO DAILY [facility] Last Admin: 12/20/17 08:57 Dose: 12 mg Mirtazapine (Remeron) 15 mg PO HS [facility] Last Admin: 12/19/17 21:22 Dose: 15 mg Ondansetron HCl (Zofran Inj) 4 mg IVP Q4 PRN PRN Reason: Nausea/Vomiting Last Admin: 11/13/17 19:35 Dose: 4 mg Pantoprazole Sodium (Protonix Ec Tab) 40 mg PO DAILY [facility] Last Admin: 12/20/17 08:58 Dose: 40 mg Theophylline (Uniphyl) 400 mg PO DAILY [facility] Last Admin: 12/20/17 08:58 Dose: 400 mg - Labs Labs: 12/20/17 04:20 12/20/17 04:20 PT 10.3 Seconds (9.8-13.1) 12/11/17 20:08 INR 0.9 12/11/17 20:08 APTT 27.5 Seconds (25.6-37.1) 12/11/17 20:08 - Constitutional Appears: Chronically Ill - Head Exam Head Exam: NORMAL INSPECTION, NORMOCEPHALIC - Eye Exam Eye Exam: Normal appearance Pupil Exam: NORMAL ACCOMMODATION - ENT Exam ENT Exam: Mucous Membranes Moist, Normal External Ear Exam - Neck Exam Neck Exam: Full ROM. absent: Meningismus - Respiratory Exam Respiratory Exam: Decrease BS, Prolonged Expiratory Phase, coarse Rales, Rhonchi No wheezing - Cardiovascular Exam Cardiovascular Exam: REGULAR RHYTHM, +S1, +S2 - GI/Abdominal Exam GI & Abdominal Exam: Soft, Normal Bowel Sounds. absent: Tenderness Additional comments: abd wall hematoma - Extremities Exam Extremities Exam: Normal Capillary Refill, Pedal Edema. absent: Calf Tenderness Additional comments: right arm swelling/lymphedema - Back Exam Back Exam: absent: CVA tenderness (L), CVA tenderness (R) - Neurological Exam Neurological Exam: Alert, Awake, Oriented x3 - Psychiatric Exam Psychiatric exam: Normal Affect, Normal Mood - Skin Skin Exam: Dry, Normal Color, Warm Assessment and Plan - Assessment and Plan (Free Text) Assessment: 67 yo female with medical history including COPD, CHF, hypothyroidism, history of breast Cancer s/p mastectomy, chronic RUE lymphedema was brought into the ED because of dyspnea. Patient was then found to be in respiratory failure secondary to COPD and CHF exacerbation. Patient was admitted to ICU where she was on bipap and IV steroids and diuretics. She is now in Telemetry At present - Pt is off High Flow Oxygen - she in on 5 liter NC during the day and 40% Ventimask q hs 1. Acute on Chronic Hypercapneic and Hypoxemic Respiratory Failure sec to Acute exacerbation of chronic obstructive pulmonary disease (COPD) - pt is off High Flow , has been on O2 per NC at 5 L during the daytime and Ventimask q hs - cont Nebulizer tx RTC with Xopenex cont PO Methyprednisolone now decreased to 12 mg daily cont Bactrim and Theophylline CT of chest - ruled out PE 2. Pneumonia, Nosocomial , likely bacterial - pt has cough , episodes of dyspnea - discussed case with Dr Benz - will start pt on IV Zosyn and Vanco (3) DM type II with Hyperglycemia secondary to steroids Accucheck with coverage Increased Levemir to 20 units q hs , cont Glipizide - as rec by DR Vu (4) Acute exacerbation of CHF (congestive heart failure) Diastolic dysfunction Continue current management: Diuretics prn cont Cardizem 240 mg po Daily. (5) C. difficile colitis - Resolved. , completed tx with PO vanco (6) Hyperthyroidism - discussed case with Dr Vu - TSH now normal ( 3.29) per Dr Vu d/c Methimazole 7. HTN (hypertension) Continue current management: Diltiazem and Losartan. increased Diltiazem dose (8) Hx of breast cancer Continue current management: Arimidex. DVT prophylaxis RLE U/S negative for DVT. d/c Lovenox ( d/c due to nosebleed) decreased ASA to 81 mg daily
[2017-12-20] MEDS: Ipratropium 0.02% Inhal Soln (0.5 mg/2.5 ml) UD IH SCH (15:31)
--- NOTE | 2017-12-20 19:37 | PN ---
Copied To: Polly Vu MD Attending MD: Polly Vu MD DATE: 12/20/2017 ENDO FOLLOWUP NOTE LOCATION: In room 408. SUBJECTIVE: This is a 67-year-old female with recent admission with acute exacerbation of COPD and supervening congestive heart failure and is now being followed closely for metabolic management. Her glycemic levels are fluctuating, but much improved at this time. The glucose levels overnight have ranged from 180 to 190 mg/dL. LABORATORY DATA: Her latest chemistry showed a BUN of 17, sodium 137, potassium 3.9, chloride 96, CO2 of 37, glucose 195, and creatinine 0.4. ASSESSMENT AND PLAN: So at this time, we will continue the basal insulin given as Levemir at 20 units subcutaneously at bedtime daily as given, glipizide given as 10 mg b.i.d. as ordered. We will obtain serial chemistries and supplement accordingly as needed. We will also obtain serial thyroid studies and determine the need to start her Tapazole medications as indicated. We will follow. Polly Vu MD
[2017-12-20] MEDS ORDERED: Insulin Regular 100 units/ml SC STA (21:50)
[2017-12-20] MEDS: Insulin Detemir 100 Units/ml Inj SC SCH (22:02)
[2017-12-21] MEDS: Ipratropium 0.02% Inhal Soln (0.5 mg/2.5 ml) UD IH SCH ×4 (00:01→23:07)
[2017-12-21] MEDS: Levalbuterol 1.25 MG/3 ML Inhal Soln UD INH SCH ×4 (00:01→23:07)
[2017-12-21] MEDS: Piperacillin/Tazobact 3.375 GM in Sodium Chloride 0.9% 100 ML IVPB SCH ×3 (00:22→17:12)
[2017-12-21 05:35] LABS: HEMOGLOBIN 8.8 g/dL (12.0-16.0); MEAN CELL VOLUME 92.7 fl (81.0-99.0); MEAN CORPUSCULAR HGB CONC 34.5 g/dL (33.0-37.0); RBC 2.75 Mil/uL (3.80-5.20); RED CELL DISTRIBUTION WIDTH 22.8 % (11.5-14.5); WHITE BLOOD COUNT 4.3 K/uL (4.8-10.8)
[2017-12-21 05:49] LABS: BLOOD UREA NITROGEN 21 mg/dl (7-17); CALCIUM 8.8 mg/dL (8.4-10.2); GFR NON-AFRICAN AMERICAN > 60
[2017-12-21] MEDS: Insulin Regular 100 units/ml SC SCH ×4 (08:48→21:31)
[2017-12-21] MEDS: THEOPHYLLINE 400 MG T24(UNIPHYL) PO SCH (08:49)
[2017-12-21] MEDS: guaiFENesin 600 mg ER Tab PO SCH ×2 (08:49→21:29)
[2017-12-21] MEDS: diltiaZEM 240 mg/24 Hours CD Cap PO SCH (08:50)
[2017-12-21] MEDS: Pantoprazole 40 mg EC Tab PO SCH (08:51)
--- NOTE | 2017-12-21 12:29 | CP.PCM.PN ---
<Aiden Bashir - Last Filed: 12/21/17 21:24> Subjective - Date & Time of Evaluation Date of Evaluation: 12/21/17 Time of Evaluation: 07:35 - Subjective Subjective: Patient evaluated in Telemetry during morning rounds. Patient remained on ventimask overnight. Reports walking up multiple times at night. Reports fatigued. Denies dyspnea at rest, fever, chills. Cough with pale yellowish sputum. Still congested and unable to expectorate much. No episode of epistaxis yesterday. Patient did not do PT yesterday. Vital signs stable. SPO2 95% on 5L NC. Pharynx pink and moist w/o exudate. Inspiratory dry rales present B/L Upper lobe Sonorous rhonchi present B/L. Decreased breath sounds Left lower lobe. Scattered wheeze present. No pedal edema. Multiple resolving ecchymosis present on B/L UE and LE. Will replace ventimask with cool aresol mask 50% O2 Chest PT Left lower lobe(Clap and cough in sidelying position) Continue with Vancomycin and Zosyn Will monitor Vancomycin Trough level. May be candidate for subacute rehab at [facility] Continue with other medications. Objective - Vital Signs/Intake and Output Vital Signs (last 24 hours): Temp Pulse Resp BP Pulse Ox 98.3 F 98 H 18 131/74 97 12/21/17 12:18 12/21/17 12:18 12/21/17 12:18 12/21/17 12:18 12/21/17 12:18 Intake and Output: 12/21/17 12/21/17 06:59 18:59 Intake Total 200 Balance 200 - Medications Medications: Current Medications Acetaminophen (Tylenol 325mg Tab) 650 mg PO Q6 PRN PRN Reason: Pain, Mild (1-3)/headache Last Admin: 12/21/17 05:23 Dose: 650 mg Alprazolam (Xanax) 0.25 mg PO Q8 PRN PRN Reason: Anxiety Stop: 12/23/17 22:03 Last Admin: 12/20/17 22:11 Dose: 0.25 mg Anastrozole (Arimidex 1 Mg Tab) 1 mg PO DAILY [facility] Last Admin: 12/21/17 08:56 Dose: 1 mg Aspirin (Aspirin Chewable) 81 mg PO DAILY [facility] Last Admin: 12/21/17 08:50 Dose: 81 mg Atorvastatin Calcium (Lipitor) 40 mg PO HS [facility] Last Admin: 12/20/17 21:38 Dose: 40 mg Dextrose (Dextrose 50% Inj) 0 ml IV STAT PRN; Protocol PRN Reason: Hypoglycemia Protocol Dextrose (Glutose 15) 0 gm PO ONCE PRN; Protocol PRN Reason: Hypoglycemia Protocol Diltiazem HCl (Cardizem Cd) 240 mg PO DAILY [facility] Last Admin: 12/21/17 08:50 Dose: 240 mg Emollient Ointment (Vaseline Oint) 1 pkt TOP BID PRN PRN Reason: Dry skin Last Admin: 12/16/17 09:12 Dose: 1 pkt Gabapentin (Neurontin) 600 mg PO Q8 [facility] Last Admin: 12/21/17 08:50 Dose: 600 mg Glipizide (Glucotrol) 10 mg PO BIDAC [facility] Last Admin: 12/21/17 08:50 Dose: 10 mg Glucagon (Glucagen Diagnostic Kit) 0 mg IM STAT PRN; Protocol PRN Reason: Hypoglycemia Protocol Guaifenesin (Mucinex La) 600 mg PO Q12 [facility] Last Admin: 12/21/17 08:49 Dose: 600 mg Piperacillin Sod/Tazobactam (Sod 3.375 gm/ Sodium Chloride) 100 mls @ 100 mls/ hr IVPB Q8 [facility] PRN Reason: Protocol Last Admin: 12/21/17 08:52 Dose: 100 mls/hr Vancomycin HCl 500 mg/ Sodium (Chloride) 100 mls @ 100 mls/hr IVPB Q12 [facility] PRN Reason: Protocol Last Admin: 12/21/17 08:52 Dose: 100 mls/hr Insulin Detemir (Levemir) 20 units SC HS [facility] Last Admin: 12/20/17 22:02 Dose: 20 units Insulin Human Regular (Humulin R) 0 units SC ACHS [facility] PRN Reason: Protocol Last Admin: 12/21/17 08:48 Dose: Not Given Ipratropium [place] (Atrovent) 0.5 mg IH RQ8 [facility] Last Admin: 12/21/17 07:46 Dose: 0.5 mg Levalbuterol HCl (Xopenex) 0.63 mg INH RQ4 PRN PRN Reason: Shortness of Breath Last Admin: 12/19/17 14:22 Dose: 0.63 mg Levalbuterol HCl (Xopenex) 1.25 mg INH RQ8 [facility] Last Admin: 12/21/17 07:46 Dose: 1.25 mg Lidocaine (Lidoderm) 1 ea TD DAILY PRN PRN Reason: Pain, moderate (4-7) Last Admin: 11/29/17 09:38 Dose: 1 ea Methylprednisolone (Medrol) 12 mg PO DAILY [facility] Last Admin: 12/21/17 08:49 Dose: 12 mg Mirtazapine (Remeron) 15 mg PO HS [facility] Last Admin: 12/20/17 21:38 Dose: 15 mg Ondansetron HCl (Zofran Inj) 4 mg IVP Q4 PRN PRN Reason: Nausea/Vomiting Last Admin: 11/13/17 19:35 Dose: 4 mg Pantoprazole Sodium (Protonix Ec Tab) 40 mg PO DAILY [facility] Last Admin: 12/21/17 08:51 Dose: 40 mg Theophylline (Uniphyl) 400 mg PO DAILY [facility] Last Admin: 12/21/17 08:49 Dose: 400 mg - Labs Labs: 12/21/17 04:20 12/21/17 04:20 PT 10.3 Seconds (9.8-13.1) 12/11/17 20:08 INR 0.9 12/11/17 20:08 APTT 27.5 Seconds (25.6-37.1) 12/11/17 20:08 <Bala Benz - Last Filed: 12/23/17 07:28> Subjective - Subjective Subjective: Seen and examined together with the residents on rounds in telemetry. Physical findings were reviewed and any ancillary studies checked. The case was reviewed and a plan of care formulated. The entry in the EMR as made by the resident was reviewed and is accurate. Objective - Vital Signs/Intake and Output Vital Signs (last 24 hours): Temp Pulse Resp BP Pulse Ox 97.6 F 102 H 18 108/59 L 98 12/23/17 04:38 12/23/17 06:10 12/23/17 04:38 12/23/17 04:38 12/23/17 04:38 Intake and Output: 12/22/17 12/23/17 23:59 11:59 Intake Total 1160 Balance 1160 - Medications Medications: Current Medications Acetaminophen (Tylenol 325mg Tab) 650 mg PO Q6 PRN PRN Reason: Pain, Mild (1-3)/headache Last Admin: 12/21/17 05:23 Dose: 650 mg Alprazolam (Xanax) 0.25 mg PO Q8 PRN PRN Reason: Anxiety Stop: 12/23/17 22:03 Last Admin: 12/22/17 21:44 Dose: 0.25 mg Anastrozole (Arimidex 1 Mg Tab) 1 mg PO DAILY [facility] Last Admin: 12/22/17 09:10 Dose: 1 mg Aspirin (Aspirin Chewable) 81 mg PO DAILY [facility] Last Admin: 12/22/17 09:05 Dose: 81 mg Atorvastatin Calcium (Lipitor) 40 mg PO HS [facility] Last Admin: 12/22/17 21:25 Dose: 40 mg Dextrose (Dextrose 50% Inj) 0 ml IV STAT PRN; Protocol PRN Reason: Hypoglycemia Protocol Dextrose (Glutose 15) 0 gm PO ONCE PRN; Protocol PRN Reason: Hypoglycemia Protocol Diltiazem HCl (Cardizem Cd) 240 mg PO DAILY [facility] Last Admin: 12/22/17 09:06 Dose: 240 mg Emollient Ointment (Vaseline Oint) 1 pkt TOP BID PRN PRN Reason: Dry skin Last Admin: 12/16/17 09:12 Dose: 1 pkt Furosemide (Lasix) 40 mg PO DAILY [facility] Gabapentin (Neurontin) 600 mg PO Q8 [facility] Last Admin: 12/23/17 00:06 Dose: 600 mg Glipizide (Glucotrol) 10 mg PO BIDAC [facility] Last Admin: 12/22/17 17:14 Dose: 10 mg Glucagon (Glucagen Diagnostic Kit) 0 mg IM STAT PRN; Protocol PRN Reason: Hypoglycemia Protocol Guaifenesin (Mucinex La) 600 mg PO Q12 [facility] Last Admin: 12/22/17 21:25 Dose: 600 mg Piperacillin Sod/Tazobactam (Sod 3.375 gm/ Sodium Chloride) 100 mls @ 100 mls/ hr IVPB Q8 [facility] PRN Reason: Protocol Last Admin: 12/23/17 00:08 Dose: 100 mls/hr Vancomycin HCl 500 mg/ Sodium (Chloride) 100 mls @ 100 mls/hr IVPB Q12 [facility] PRN Reason: Protocol Last Admin: 12/22/17 21:25 Dose: 100 mls/hr Insulin Detemir (Levemir) 20 units SC HS [facility] Last Admin: 12/22/17 21:27 Dose: 20 units Insulin Human Regular (Humulin R) 0 units SC ACHS [facility] PRN Reason: Protocol Last Admin: 12/22/17 21:52 Dose: 2 u Ipratropium [place] (Atrovent) 0.5 mg IH RQ8 [facility] Last Admin: 12/23/17 00:22 Dose: 0.5 mg Levalbuterol HCl (Xopenex) 0.63 mg INH RQ4 PRN PRN Reason: Shortness of Breath Last Admin: 12/22/17 03:30 Dose: 0.63 mg Levalbuterol HCl (Xopenex) 1.25 mg INH RQ8 [facility] Last Admin: 12/22/17 23:55 Dose: 1.25 mg Lidocaine (Lidoderm) 1 ea TD DAILY PRN PRN Reason: Pain, moderate (4-7) Last Admin: 11/29/17 09:38 Dose: 1 ea Methylprednisolone (Medrol) 20 mg PO DAILY [facility] Mirtazapine (Remeron) 15 mg PO HS [facility] Last Admin: 12/22/17 21:25 Dose: 15 mg Ondansetron HCl (Zofran Inj) 4 mg IVP Q4 PRN PRN Reason: Nausea/Vomiting Last Admin: 11/13/17 19:35 Dose: 4 mg Pantoprazole Sodium (Protonix Ec Tab) 40 mg PO DAILY [facility] Last Admin: 12/22/17 09:04 Dose: 40 mg Theophylline (Uniphyl) 400 mg PO DAILY [facility] Last Admin: 12/22/17 09:04 Dose: 400 mg - Labs Labs: 12/23/17 05:22 12/23/17 05:22 PT 10.3 Seconds (9.8-13.1) 12/11/17 20:08 INR 0.9 12/11/17 20:08 APTT 27.5 Seconds (25.6-37.1) 12/11/17 20:08
--- NOTE | 2017-12-21 18:47 | CP.PCM.PN ---
Subjective - Date & Time of Evaluation Date of Evaluation: 12/21/17 Time of Evaluation: 11:00 - Subjective Subjective: Patient seen and examined bedside. Chronically ill female lying in bed . With chest congestion and coughing spells , unable to expectorate.saturating 97 5 on 5 L o2 via NC Afebrile with baseline SOB Objective - Vital Signs/Intake and Output Vital Signs (last 24 hours): Temp Pulse Resp BP Pulse Ox 98.8 F 98 H 18 110/71 91 L 12/21/17 16:50 12/21/17 16:50 12/21/17 16:50 12/21/17 16:50 12/21/17 16:50 Intake and Output: 12/21/17 12/21/17 06:59 18:59 Intake Total 200 Balance 200 - Medications Medications: Current Medications Acetaminophen (Tylenol 325mg Tab) 650 mg PO Q6 PRN PRN Reason: Pain, Mild (1-3)/headache Last Admin: 12/21/17 05:23 Dose: 650 mg Alprazolam (Xanax) 0.25 mg PO Q8 PRN PRN Reason: Anxiety Stop: 12/23/17 22:03 Last Admin: 12/20/17 22:11 Dose: 0.25 mg Anastrozole (Arimidex 1 Mg Tab) 1 mg PO DAILY [facility] Last Admin: 12/21/17 08:56 Dose: 1 mg Aspirin (Aspirin Chewable) 81 mg PO DAILY [facility] Last Admin: 12/21/17 08:50 Dose: 81 mg Atorvastatin Calcium (Lipitor) 40 mg PO HS [facility] Last Admin: 12/20/17 21:38 Dose: 40 mg Dextrose (Dextrose 50% Inj) 0 ml IV STAT PRN; Protocol PRN Reason: Hypoglycemia Protocol Dextrose (Glutose 15) 0 gm PO ONCE PRN; Protocol PRN Reason: Hypoglycemia Protocol Diltiazem HCl (Cardizem Cd) 240 mg PO DAILY [facility] Last Admin: 12/21/17 08:50 Dose: 240 mg Emollient Ointment (Vaseline Oint) 1 pkt TOP BID PRN PRN Reason: Dry skin Last Admin: 12/16/17 09:12 Dose: 1 pkt Gabapentin (Neurontin) 600 mg PO Q8 [facility] Last Admin: 12/21/17 17:12 Dose: 600 mg Glipizide (Glucotrol) 10 mg PO BIDAC [facility] Last Admin: 12/21/17 17:12 Dose: 10 mg Glucagon (Glucagen Diagnostic Kit) 0 mg IM STAT PRN; Protocol PRN Reason: Hypoglycemia Protocol Guaifenesin (Mucinex La) 600 mg PO Q12 [facility] Last Admin: 12/21/17 08:49 Dose: 600 mg Piperacillin Sod/Tazobactam (Sod 3.375 gm/ Sodium Chloride) 100 mls @ 100 mls/ hr IVPB Q8 [facility] PRN Reason: Protocol Last Admin: 12/21/17 17:12 Dose: 100 mls/hr Vancomycin HCl 500 mg/ Sodium (Chloride) 100 mls @ 100 mls/hr IVPB Q12 [facility] PRN Reason: Protocol Last Admin: 12/21/17 08:52 Dose: 100 mls/hr Insulin Detemir (Levemir) 20 units SC HS [facility] Last Admin: 12/20/17 22:02 Dose: 20 units Insulin Human Regular (Humulin R) 0 units SC ACHS [facility] PRN Reason: Protocol Last Admin: 12/21/17 16:54 Dose: Not Given Ipratropium [place] (Atrovent) 0.5 mg IH RQ8 [facility] Last Admin: 12/21/17 15:31 Dose: 0.5 mg Levalbuterol HCl (Xopenex) 0.63 mg INH RQ4 PRN PRN Reason: Shortness of Breath Last Admin: 12/19/17 14:22 Dose: 0.63 mg Levalbuterol HCl (Xopenex) 1.25 mg INH RQ8 [facility] Last Admin: 12/21/17 15:31 Dose: 1.25 mg Lidocaine (Lidoderm) 1 ea TD DAILY PRN PRN Reason: Pain, moderate (4-7) Last Admin: 11/29/17 09:38 Dose: 1 ea Methylprednisolone (Medrol) 12 mg PO DAILY [facility] Last Admin: 12/21/17 08:49 Dose: 12 mg Mirtazapine (Remeron) 15 mg PO HS [facility] Last Admin: 12/20/17 21:38 Dose: 15 mg Ondansetron HCl (Zofran Inj) 4 mg IVP Q4 PRN PRN Reason: Nausea/Vomiting Last Admin: 11/13/17 19:35 Dose: 4 mg Pantoprazole Sodium (Protonix Ec Tab) 40 mg PO DAILY [facility] Last Admin: 12/21/17 08:51 Dose: 40 mg Theophylline (Uniphyl) 400 mg PO DAILY [facility] Last Admin: 12/21/17 08:49 Dose: 400 mg - Labs Labs: 12/21/17 04:20 12/21/17 04:20 PT 10.3 Seconds (9.8-13.1) 12/11/17 20:08 INR 0.9 12/11/17 20:08 APTT 27.5 Seconds (25.6-37.1) 12/11/17 20:08 - Constitutional Appears: Chronically Ill, Other (mild respiratory distress ) - Head Exam Head Exam: NORMOCEPHALIC Additional comments: facial edema - Eye Exam Eye Exam: PERRL Pupil Exam: NORMAL ACCOMODATION - ENT Exam ENT Exam: Mucous Membranes Moist, Normal Exam - Neck Exam Neck Exam: Normal Inspection - Respiratory Exam Respiratory Exam: Prolonged Expiratory Phase, Rales Additional comments: rhonchi + - Cardiovascular Exam Cardiovascular Exam: REGULAR RHYTHM. absent: JVD - GI/Abdominal Exam GI & Abdominal Exam: Soft, Normal Bowel Sounds. absent: Distended, Rebound - Rectal Exam Rectal Exam: Deferred - Extremities Exam Additional comments: RUE 3 + edema LE bilaterally 1 + edema multiple echymosis to lower and upper extremities - Neurological Exam Neurological Exam: Alert, Awake, CN II-XII Intact - Psychiatric Exam Psychiatric exam: Normal Affect - Skin Skin Exam: Pallor, Warm Assessment and Plan - Assessment and Plan (Free Text) Assessment: 67 yo female with medical history including COPD, CHF, hypothyroidism, history of breast Cancer s/p mastectomy, chronic RUE lymphedema was brought into the ED because of dyspnea. Patient was then found to be in respiratory failure secondary to COPD and CHF exacerbation. Patient was admitted to ICU where she was on bipap and IV steroids and diuretics. She is now in Telemetry, slowly improving but still with dyspnea at rest while on O2 via NC with minimal effort and with chest congestion unable to expectorate Pulmonary following and started on vanco and Zosyn for possible Pneumonia 1. Acute on Chronic Hypercapneic and Hypoxemic Respiratory Failure sec to Acute exacerbation of chronic obstructive pulmonary disease (COPD)-- slowly improving saturating 97 % on 5 L O2 via NC off high flow cont Nebulizer tx RTC with Xopenex cont PO Methyprednisolone 12 mg daily cont Theophylline 2. Pneumonia, Nosocomial , likely bacterial with chest congestion , cough , unable to expectorate Pulmonary following Started Vanco and Zosyn IV 3. DM type II with Hyperglycemia secondary to steroids Accucheck with coverage on Levemir to 20 units q hs , cont Glipizide - as rec by DR Vu 4. Acute exacerbation of CHF (congestive heart failure) Diastolic dysfunction Continue current management: Diuretics prn cont Cardizem 240 mg po Daily. 5. C. difficile colitis Resolved. , completed tx with PO vanco 6. Hyperthyroidism discussed case with Dr Vu TSH now normal ( 3.29) per Dr Vu d/c Methimazole 7. HTN (hypertension) Continue current management: Diltiazem and Losartan. increased Diltiazem dose 8. Hx of breast cancer Continue current management: Arimidex. 9. DVT prophylaxis RLE U/S negative for DVT. d/c Lovenox ( d/c due to nosebleed) decreased ASA to 81 mg daily
--- NOTE | 2017-12-21 19:36 | PN ---
Copied To: Polly Vu MD Attending MD: Polly Vu MD DATE: 12/21/2017 ENDO FOLLOWUP NOTE LOCATION: Room 408. SUBJECTIVE: This is a 67-year-old female with recent uncontrolled type 2 insulin-requiring diabetes, now being followed closely for metabolic management. Her glycemic levels are fluctuating but improved and the glucose values today have ranged from 185 to 231 mg/dL. LABORATORY DATA: Her latest chemistry showed BUN of 21, sodium 137, potassium 3.8, chloride 99, CO2 of 34, glucose 196, and creatinine 0.4. Her bedtime glucose was 326 last night as noted. ASSESSMENT AND PLAN: So for now, we will continue the basal insulin given as Levemir at 20 units subcu at bedtime daily as given. We will also continue the glipizide given as 10 mg b.i.d. before meals as ordered. We will obtain serial chemistries and supplement accordingly needed. We will follow. Polly Vu MD
[2017-12-21] MEDS: Insulin Detemir 100 Units/ml Inj SC SCH (21:31)
[2017-12-22] MEDS: Piperacillin/Tazobact 3.375 GM in Sodium Chloride 0.9% 100 ML IVPB SCH ×3 (00:45→17:39)
[2017-12-22] MEDS: Levalbuterol 0.63 MG/3 ML Inhal Soln UD INH PRN (03:30)
[2017-12-22 05:43] LABS: HEMOGLOBIN 8.4 g/dL (12.0-16.0); MEAN CELL VOLUME 92.6 fl (81.0-99.0); MEAN CORPUSCULAR HEMOGLOBIN 29.9 pg (27.0-31.0); MEAN CORPUSCULAR HGB CONC 32.3 g/dL (33.0-37.0); RBC 2.8 Mil/uL (3.80-5.20); RED CELL DISTRIBUTION WIDTH 22.4 % (11.5-14.5); WHITE BLOOD COUNT 4.5 K/uL (4.8-10.8)
[2017-12-22 06:26] LABS: BLOOD UREA NITROGEN 21 mg/dl (7-17); CALCIUM 8.8 mg/dL (8.4-10.2); GFR NON-AFRICAN AMERICAN > 60
[2017-12-22 06:38] LABS: T4 3.79 ug/dl (5.5-11.0)
[2017-12-22] MEDS: Levalbuterol 1.25 MG/3 ML Inhal Soln UD INH SCH ×3 (07:21→23:55)
[2017-12-22] MEDS: Ipratropium 0.02% Inhal Soln (0.5 mg/2.5 ml) UD IH SCH ×2 (07:21→15:21)
--- NOTE | 2017-12-22 08:46 | RAD ---
Date of service: 12/21/2017 HISTORY: pneumonia COMPARISON: 12/19/2017 FINDINGS: LUNGS: The right lung is well inflated and clear. There is a left retrocardiac opacity. Small left pleural effusion. PLEURA: No significant pleural effusion identified, no pneumothorax apparent. CARDIOVASCULAR: There is mild cardiomegaly. Atherosclerotic aortic arch calcifications are present. OSSEOUS STRUCTURES: Stable. VISUALIZED UPPER ABDOMEN: Normal. OTHER FINDINGS: None. IMPRESSION: Left retrocardiac opacity may represent atelectasis or pneumonia. Small left pleural effusion. No significant interval change.
[2017-12-22] MEDS: guaiFENesin 600 mg ER Tab PO SCH ×2 (09:04→21:25)
[2017-12-22] MEDS: THEOPHYLLINE 400 MG T24(UNIPHYL) PO SCH (09:04)
[2017-12-22] MEDS: Pantoprazole 40 mg EC Tab PO SCH (09:04)
[2017-12-22] MEDS: diltiaZEM 240 mg/24 Hours CD Cap PO SCH (09:06)
[2017-12-22] MEDS: Insulin Regular 100 units/ml SC SCH ×5 (09:07→21:52)
[2017-12-22] MEDS ORDERED: Potassium Chloride 20 mEq ER Tab PO ONE (18:00)
--- NOTE | 2017-12-22 18:00 | CP.PCM.PN ---
Subjective - Date & Time of Evaluation Date of Evaluation: 12/22/17 Time of Evaluation: 11:30 - Subjective Subjective: Chronically ill female seen and examined bedside. She is lying in bed in NAD. With chest congestion , baseline SOB , coughing spells , unable to expectorate.Unable to sleep well overnight Voiding and had BM but with abdominal distention , denies any pain Saturating 97 % on 5 L O2 via NC Objective - Vital Signs/Intake and Output Vital Signs (last 24 hours): Temp Pulse Resp BP Pulse Ox 98.6 F 107 H 18 131/65 99 12/22/17 15:46 12/22/17 15:46 12/22/17 15:46 12/22/17 15:46 12/22/17 15:46 Intake and Output: 12/22/17 12/22/17 06:59 18:59 Intake Total 100 Balance 100 - Medications Medications: Current Medications Acetaminophen (Tylenol 325mg Tab) 650 mg PO Q6 PRN PRN Reason: Pain, Mild (1-3)/headache Last Admin: 12/21/17 05:23 Dose: 650 mg Alprazolam (Xanax) 0.25 mg PO Q8 PRN PRN Reason: Anxiety Stop: 12/23/17 22:03 Last Admin: 12/21/17 21:34 Dose: 0.25 mg Anastrozole (Arimidex 1 Mg Tab) 1 mg PO DAILY [facility] Last Admin: 12/22/17 09:10 Dose: 1 mg Aspirin (Aspirin Chewable) 81 mg PO DAILY [facility] Last Admin: 12/22/17 09:05 Dose: 81 mg Atorvastatin Calcium (Lipitor) 40 mg PO HS [facility] Last Admin: 12/21/17 21:30 Dose: 40 mg Dextrose (Dextrose 50% Inj) 0 ml IV STAT PRN; Protocol PRN Reason: Hypoglycemia Protocol Dextrose (Glutose 15) 0 gm PO ONCE PRN; Protocol PRN Reason: Hypoglycemia Protocol Diltiazem HCl (Cardizem Cd) 240 mg PO DAILY [facility] Last Admin: 12/22/17 09:06 Dose: 240 mg Emollient Ointment (Vaseline Oint) 1 pkt TOP BID PRN PRN Reason: Dry skin Last Admin: 12/16/17 09:12 Dose: 1 pkt Furosemide (Lasix) 40 mg IVP ONCE ONE Stop: 12/22/17 17:57 Furosemide (Lasix) 40 mg PO DAILY [facility] Gabapentin (Neurontin) 600 mg PO Q8 [facility] Last Admin: 12/22/17 17:39 Dose: 600 mg Glipizide (Glucotrol) 10 mg PO BIDAC [facility] Last Admin: 12/22/17 17:14 Dose: 10 mg Glucagon (Glucagen Diagnostic Kit) 0 mg IM STAT PRN; Protocol PRN Reason: Hypoglycemia Protocol Guaifenesin (Mucinex La) 600 mg PO Q12 [facility] Last Admin: 12/22/17 09:04 Dose: 600 mg Piperacillin Sod/Tazobactam (Sod 3.375 gm/ Sodium Chloride) 100 mls @ 100 mls/ hr IVPB Q8 [facility] PRN Reason: Protocol Last Admin: 12/22/17 17:39 Dose: 100 mls/hr Vancomycin HCl 500 mg/ Sodium (Chloride) 100 mls @ 100 mls/hr IVPB Q12 [facility] PRN Reason: Protocol Last Admin: 12/22/17 09:15 Dose: 100 mls/hr Insulin Detemir (Levemir) 20 units SC HS [facility] Last Admin: 12/21/17 21:31 Dose: 20 units Insulin Human Regular (Humulin R) 0 units SC ACHS [facility] PRN Reason: Protocol Last Admin: 12/22/17 17:14 Dose: Not Given Ipratropium [place] (Atrovent) 0.5 mg IH RQ8 [facility] Last Admin: 12/22/17 15:21 Dose: 0.5 mg Levalbuterol HCl (Xopenex) 0.63 mg INH RQ4 PRN PRN Reason: Shortness of Breath Last Admin: 12/22/17 03:30 Dose: 0.63 mg Levalbuterol HCl (Xopenex) 1.25 mg INH RQ8 [facility] Last Admin: 12/22/17 15:21 Dose: 1.25 mg Lidocaine (Lidoderm) 1 ea TD DAILY PRN PRN Reason: Pain, moderate (4-7) Last Admin: 11/29/17 09:38 Dose: 1 ea Methylprednisolone (Medrol) 20 mg PO DAILY [facility] Mirtazapine (Remeron) 15 mg PO HS [facility] Last Admin: 12/21/17 21:30 Dose: 15 mg Ondansetron HCl (Zofran Inj) 4 mg IVP Q4 PRN PRN Reason: Nausea/Vomiting Last Admin: 11/13/17 19:35 Dose: 4 mg Pantoprazole Sodium (Protonix Ec Tab) 40 mg PO DAILY [facility] Last Admin: 12/22/17 09:04 Dose: 40 mg Potassium Chloride (K-Dur 20 Meq Er Tab) 40 meq PO ONCE ONE Stop: 12/22/17 18:01 Theophylline (Uniphyl) 400 mg PO DAILY [facility] Last Admin: 12/22/17 09:04 Dose: 400 mg - Labs Labs: 12/22/17 05:20 12/22/17 05:20 PT 10.3 Seconds (9.8-13.1) 12/11/17 20:08 INR 0.9 12/11/17 20:08 APTT 27.5 Seconds (25.6-37.1) 12/11/17 20:08 - Constitutional Appears: Older Than Stated Age, Chronically Ill, Other (anasarca, mild respiratory distress) - Head Exam Head Exam: ATRAUMATIC, NORMOCEPHALIC - Eye Exam Eye Exam: Normal appearance, PERRL Pupil Exam: NORMAL ACCOMODATION - ENT Exam ENT Exam: Mucous Membranes Moist, Normal Exam - Neck Exam Neck Exam: Normal Inspection - Respiratory Exam Respiratory Exam: Decreased Breath Sounds, Prolonged Expiratory Phase, Rales - Cardiovascular Exam Cardiovascular Exam: REGULAR RHYTHM. absent: JVD - GI/Abdominal Exam GI & Abdominal Exam: Distended, Hypoactive Bowel Sounds. absent: Guarding, Rigid, Tenderness, Rebound - Rectal Exam Rectal Exam: Deferred - Extremities Exam Extremities Exam: absent: Pedal Edema Additional comments: RUE lymphedema - Neurological Exam Neurological Exam: Alert, Awake, CN II-XII Intact - Psychiatric Exam Psychiatric exam: Normal Affect - Skin Skin Exam: Pallor, Warm Additional comments: multiple echymotic area to upper, lower extremities and abdominal wall Assessment and Plan - Assessment and Plan (Free Text) Assessment: 67 yo female with extensive medical history including COPD, CHF, hypothyroidism , history of breast Cancer s/p mastectomy, chronic RUE lymphedema was brought into the ED because of dyspnea. Patient was then found to be in respiratory failure secondary to COPD and CHF exacerbation. Patient was admitted to ICU where she was on bipap and IV steroids and diuretics. She is now in Telemetry, slowly improving but still with dyspnea at rest while on O2 via NC with minimal effort and with chest congestion unable to expectorate Pulmonary following and started on vanco and Zosyn for possible Pneumonia 1. Acute on Chronic Hypercapneic and Hypoxemic Respiratory Failure sec to Acute exacerbation of chronic obstructive pulmonary disease (COPD)-- slowly improving saturating 97 % on 5 L O2 via NC off high flow cont Nebulizer tx RTC with Xopenex cont PO Methyprednisolone 12 mg daily cont Theophylline Will try BIPAP at night 2. Pneumonia, Nosocomial , likely bacterial with chest congestion , cough , unable to expectorate Pulmonary following Started Vanco and Zosyn IV 3. DM type II with Hyperglycemia secondary to steroids Accucheck with coverage on Levemir to 20 units q hs , cont Glipizide - as rec by DR Vu 4. Acute exacerbation of CHF (congestive heart failure) Diastolic dysfunction Will give stat lasix 40 mg IV today and 40 mg daily cont Cardizem 240 mg po Daily. 5. C. difficile colitis Resolved. , completed tx with PO vanco Abdomen apperas distended today but patient had normal BM today Continue to monitor 6. Hyperthyroidism discussed case with Dr Vu TSH now normal ( 3.29) per Dr Vu d/c Methimazole 7. HTN (hypertension) Continue current management: Diltiazem and Losartan. increased Diltiazem dose 8. Hx of breast cancer Continue current management: Arimidex. 9. DVT prophylaxis RLE U/S negative for DVT. d/c Lovenox ( d/c due to nosebleed) decreased ASA to 81 mg daily
--- NOTE | 2017-12-22 21:14 | CP.PCM.PN ---
Subjective - Date & Time of Evaluation Date of Evaluation: 12/22/17 Time of Evaluation: 21:11 - Subjective Subjective: Seen earlier this morning on rounds. She continues to have difficulty with dyspnea noted upon simple activity. Able to maintain satisfactory oxygenation using Ventmask 50% during activity and nasal canula @ 5 LPM at other times. Appears fatigued with increased work of breathing. She remains mildly tachycardic as a result of the above plus medical treatment with beta-agonists. Labs appear stable, but hemoglobin is slowly decreasing. Will transfuse, if needed, when Hgb reaches 8GM. Breath sounds are diminished bilaterally with scattered rhonchi and occasional E wheezes. Cough is congested, but unable to effectively raise secretions. Will increase oral steroid dosage, continue aerosol and antibiotic therapies. Chest PT using postural techniques plus clapping and cough. Objective - Vital Signs/Intake and Output Vital Signs (last 24 hours): Temp Pulse Resp BP Pulse Ox 98.2 F 100 H 20 114/62 99 12/22/17 19:39 12/22/17 19:39 12/22/17 19:39 12/22/17 19:39 12/22/17 19:39 Intake and Output: 12/22/17 12/22/17 11:59 23:59 Intake Total 1160 Balance 1160 - Medications Medications: Current Medications Acetaminophen (Tylenol 325mg Tab) 650 mg PO Q6 PRN PRN Reason: Pain, Mild (1-3)/headache Last Admin: 12/21/17 05:23 Dose: 650 mg Alprazolam (Xanax) 0.25 mg PO Q8 PRN PRN Reason: Anxiety Stop: 12/23/17 22:03 Last Admin: 12/21/17 21:34 Dose: 0.25 mg Anastrozole (Arimidex 1 Mg Tab) 1 mg PO DAILY [facility] Last Admin: 12/22/17 09:10 Dose: 1 mg Aspirin (Aspirin Chewable) 81 mg PO DAILY [facility] Last Admin: 12/22/17 09:05 Dose: 81 mg Atorvastatin Calcium (Lipitor) 40 mg PO HS [facility] Last Admin: 12/21/17 21:30 Dose: 40 mg Dextrose (Dextrose 50% Inj) 0 ml IV STAT PRN; Protocol PRN Reason: Hypoglycemia Protocol Dextrose (Glutose 15) 0 gm PO ONCE PRN; Protocol PRN Reason: Hypoglycemia Protocol Diltiazem HCl (Cardizem Cd) 240 mg PO DAILY [facility] Last Admin: 12/22/17 09:06 Dose: 240 mg Emollient Ointment (Vaseline Oint) 1 pkt TOP BID PRN PRN Reason: Dry skin Last Admin: 12/16/17 09:12 Dose: 1 pkt Furosemide (Lasix) 40 mg PO DAILY [facility] Gabapentin (Neurontin) 600 mg PO Q8 [facility] Last Admin: 12/22/17 17:39 Dose: 600 mg Glipizide (Glucotrol) 10 mg PO BIDAC [facility] Last Admin: 12/22/17 17:14 Dose: 10 mg Glucagon (Glucagen Diagnostic Kit) 0 mg IM STAT PRN; Protocol PRN Reason: Hypoglycemia Protocol Guaifenesin (Mucinex La) 600 mg PO Q12 [facility] Last Admin: 12/22/17 09:04 Dose: 600 mg Piperacillin Sod/Tazobactam (Sod 3.375 gm/ Sodium Chloride) 100 mls @ 100 mls/ hr IVPB Q8 [facility] PRN Reason: Protocol Last Admin: 12/22/17 17:39 Dose: 100 mls/hr Vancomycin HCl 500 mg/ Sodium (Chloride) 100 mls @ 100 mls/hr IVPB Q12 [facility] PRN Reason: Protocol Last Admin: 12/22/17 09:15 Dose: 100 mls/hr Insulin Detemir (Levemir) 20 units SC HS [facility] Last Admin: 12/21/17 21:31 Dose: 20 units Insulin Human Regular (Humulin R) 0 units SC ACHS [facility] PRN Reason: Protocol Last Admin: 12/22/17 17:14 Dose: Not Given Ipratropium [place] (Atrovent) 0.5 mg IH RQ8 [facility] Last Admin: 12/22/17 15:21 Dose: 0.5 mg Levalbuterol HCl (Xopenex) 0.63 mg INH RQ4 PRN PRN Reason: Shortness of Breath Last Admin: 12/22/17 03:30 Dose: 0.63 mg Levalbuterol HCl (Xopenex) 1.25 mg INH RQ8 [facility] Last Admin: 12/22/17 15:21 Dose: 1.25 mg Lidocaine (Lidoderm) 1 ea TD DAILY PRN PRN Reason: Pain, moderate (4-7) Last Admin: 07/24/18 09:38 Dose: 1 ea Methylprednisolone (Medrol) 20 mg PO DAILY [facility] Mirtazapine (Remeron) 15 mg PO HS [facility] Last Admin: 12/21/17 21:30 Dose: 15 mg Ondansetron HCl (Zofran Inj) 4 mg IVP Q4 PRN PRN Reason: Nausea/Vomiting Last Admin: 11/13/17 19:35 Dose: 4 mg Pantoprazole Sodium (Protonix Ec Tab) 40 mg PO DAILY [facility] Last Admin: 12/22/17 09:04 Dose: 40 mg Theophylline (Uniphyl) 400 mg PO DAILY [facility] Last Admin: 12/22/17 09:04 Dose: 400 mg - Labs Labs: 12/22/17 05:20 12/22/17 05:20 PT 10.3 Seconds (9.8-13.1) 12/11/17 20:08 INR 0.9 12/11/17 20:08 APTT 27.5 Seconds (25.6-37.1) 12/11/17 20:08
[2017-12-22] MEDS: Insulin Detemir 100 Units/ml Inj SC SCH (21:27)
[2017-12-23] MEDS: Piperacillin/Tazobact 3.375 GM in Sodium Chloride 0.9% 100 ML IVPB SCH ×3 (00:08→17:38)
[2017-12-23] MEDS: Ipratropium 0.02% Inhal Soln (0.5 mg/2.5 ml) UD IH SCH ×4 (00:22→19:56)
[2017-12-23 05:30] LABS: HEMOGLOBIN 8.5 g/dL (12.0-16.0); MEAN CELL VOLUME 92.7 fl (81.0-99.0); MEAN CORPUSCULAR HEMOGLOBIN 30.6 pg (27.0-31.0); MEAN CORPUSCULAR HGB CONC 32.9 g/dL (33.0-37.0); RBC 2.78 Mil/uL (3.80-5.20); RED CELL DISTRIBUTION WIDTH 23.6 % (11.5-14.5)
[2017-12-23 05:40] LABS: BLOOD UREA NITROGEN 17 mg/dl (7-17); CALCIUM 8.4 mg/dL (8.4-10.2); GFR NON-AFRICAN AMERICAN > 60
[2017-12-23] MEDS: Levalbuterol 1.25 MG/3 ML Inhal Soln UD INH SCH ×3 (07:35→19:56)
[2017-12-23] MEDS: diltiaZEM 240 mg/24 Hours CD Cap PO SCH (08:53)
[2017-12-23] MEDS: Insulin Regular 100 units/ml SC SCH ×4 (08:54→21:14)
[2017-12-23] MEDS: guaiFENesin 600 mg ER Tab PO SCH ×2 (08:57→21:10)
[2017-12-23] MEDS: Pantoprazole 40 mg EC Tab PO SCH (08:57)
[2017-12-23] MEDS: THEOPHYLLINE 400 MG T24(UNIPHYL) PO SCH (08:58)
--- NOTE | 2017-12-23 09:02 | PN ---
Copied To: Polly Vu MD Attending MD: Polly Vu MD DATE: 12/22/2017 ENDO FOLLOWUP NOTE LOCATION: In room 408. SUBJECTIVE: This is a 67-year-old female with recent uncontrolled type 2 insulin-requiring diabetes, now with improved metabolic profile overnight as noted and the latest glucose levels have ranged from 93 to 109 mg/dL. LABORATORY DATA: The latest chemistry showed a BUN of 21, sodium 139, potassium 3.3, chloride 102, CO2 of 34, glucose 97, and creatinine 0.4. The repeat thyroid studies showed a T4 of 3.79 with a TSH of 3.12. ASSESSMENT AND PLAN: So at this time, we will continue the basal insulin given as Levemir at 20 units subcutaneously at bedtime daily as given with glipizide given as 10 mg b.i.d. as ordered. We will hold off the resumption of her Tapazole medication as her thyroid studies remain near optimal and euthyroid at this time. We will obtain serial chemistries and supplement accordingly as needed. We will follow. Polly Vu MD
--- NOTE | 2017-12-23 09:34 | CP.PCM.PN ---
Subjective - Date & Time of Evaluation Date of Evaluation: 12/23/17 Time of Evaluation: 09:31 - Subjective Subjective: pt resting comfortably on 5L NC discussed with Pulmonology, and patient was titrated down to ventimask and NC however required increased o2. will monitor for successful titration of O2 requirement hd stable at this time no acute distress Objective - Vital Signs/Intake and Output Vital Signs (last 24 hours): Temp Pulse Resp BP Pulse Ox 98.3 F 89 20 113/68 99 12/23/17 08:32 12/23/17 08:53 12/23/17 08:32 12/23/17 08:55 12/23/17 08:32 Intake and Output: GEN: awake alert HEENT: NCAT, PERRL, EOMI HEART: RRR +S1S2 LUNG: decreased bs bl ABD: soft, NT, ND, no mass, BSx4 EXT: normal capillary refill, warm SKIN: warm, dry NEURO: awake, alert PSYCH: normal mood and affect - Medications Medications: Current Medications Acetaminophen (Tylenol 325mg Tab) 650 mg PO Q6 PRN PRN Reason: Pain, Mild (1-3)/headache Last Admin: 12/21/17 05:23 Dose: 650 mg Alprazolam (Xanax) 0.25 mg PO Q8 PRN PRN Reason: Anxiety Stop: 12/23/17 22:03 Last Admin: 12/22/17 21:44 Dose: 0.25 mg Anastrozole (Arimidex 1 Mg Tab) 1 mg PO DAILY [facility] Last Admin: 12/23/17 08:51 Dose: 1 mg Aspirin (Aspirin Chewable) 81 mg PO DAILY [facility] Last Admin: 12/23/17 08:52 Dose: 81 mg Atorvastatin Calcium (Lipitor) 40 mg PO HS [facility] Last Admin: 12/22/17 21:25 Dose: 40 mg Dextrose (Dextrose 50% Inj) 0 ml IV STAT PRN; Protocol PRN Reason: Hypoglycemia Protocol Dextrose (Glutose 15) 0 gm PO ONCE PRN; Protocol PRN Reason: Hypoglycemia Protocol Diltiazem HCl (Cardizem Cd) 240 mg PO DAILY [facility] Last Admin: 12/23/17 08:53 Dose: 240 mg Emollient Ointment (Vaseline Oint) 1 pkt TOP BID PRN PRN Reason: Dry skin Last Admin: 12/16/17 09:12 Dose: 1 pkt Furosemide (Lasix) 40 mg PO DAILY [facility] Last Admin: 12/23/17 08:55 Dose: 40 mg Gabapentin (Neurontin) 600 mg PO Q8 [facility] Last Admin: 12/23/17 08:57 Dose: 600 mg Glipizide (Glucotrol) 10 mg PO BIDAC [facility] Last Admin: 12/23/17 08:54 Dose: 10 mg Glucagon (Glucagen Diagnostic Kit) 0 mg IM STAT PRN; Protocol PRN Reason: Hypoglycemia Protocol Guaifenesin (Mucinex La) 600 mg PO Q12 [facility] Last Admin: 12/23/17 08:57 Dose: 600 mg Piperacillin Sod/Tazobactam (Sod 3.375 gm/ Sodium Chloride) 100 mls @ 100 mls/ hr IVPB Q8 [facility] PRN Reason: Protocol Last Admin: 12/23/17 00:08 Dose: 100 mls/hr Vancomycin HCl 500 mg/ Sodium (Chloride) 100 mls @ 100 mls/hr IVPB Q12 [facility] PRN Reason: Protocol Last Admin: 12/23/17 08:58 Dose: 100 mls/hr Insulin Detemir (Levemir) 20 units SC HS [facility] Last Admin: 12/22/17 21:27 Dose: 20 units Insulin Human Regular (Humulin R) 0 units SC ACHS [facility] PRN Reason: Protocol Last Admin: 12/23/17 08:54 Dose: Not Given Ipratropium [place] (Atrovent) 0.5 mg IH RQ8 [facility] Last Admin: 12/23/17 07:35 Dose: 0.5 mg Levalbuterol HCl (Xopenex) 0.63 mg INH RQ4 PRN PRN Reason: Shortness of Breath Last Admin: 12/22/17 03:30 Dose: 0.63 mg Levalbuterol HCl (Xopenex) 1.25 mg INH RQ8 [facility] Last Admin: 12/23/17 07:35 Dose: 1.25 mg Lidocaine (Lidoderm) 1 ea TD DAILY PRN PRN Reason: Pain, moderate (4-7) Last Admin: 11/29/17 09:38 Dose: 1 ea Methylprednisolone (Medrol) 20 mg PO DAILY [facility] Last Admin: 12/23/17 08:56 Dose: 20 mg Mirtazapine (Remeron) 15 mg PO HS [facility] Last Admin: 12/22/17 21:25 Dose: 15 mg Ondansetron HCl (Zofran Inj) 4 mg IVP Q4 PRN PRN Reason: Nausea/Vomiting Last Admin: 11/13/17 19:35 Dose: 4 mg Pantoprazole Sodium (Protonix Ec Tab) 40 mg PO DAILY [facility] Last Admin: 12/23/17 08:57 Dose: 40 mg Theophylline (Uniphyl) 400 mg PO DAILY [facility] Last Admin: 12/23/17 08:58 Dose: 400 mg - Labs Labs: 12/23/17 05:22 12/23/17 05:22 PT 10.3 Seconds (9.8-13.1) 12/11/17 20:08 INR 0.9 12/11/17 20:08 APTT 27.5 Seconds (25.6-37.1) 12/11/17 20:08 Assessment and Plan - Assessment and Plan (Free Text) Plan: 67 yo female with extensive medical history including COPD, CHF, hypothyroidism , history of breast Cancer s/p mastectomy, chronic RUE lymphedema was brought into the ED because of dyspnea. Patient was then found to be in respiratory failure secondary to COPD and CHF exacerbation. Patient was admitted to ICU where she was on bipap and IV steroids and diuretics. She is now in Telemetry, slowly improving but still with dyspnea at rest while on O2 via NC with minimal effort and with chest congestion unable to expectorate Pulmonary following and started on vanco and Zosyn for possible Pneumonia 1. Acute on Chronic Hypercapneic and Hypoxemic Respiratory Failure sec to Acute exacerbation of chronic obstructive pulmonary disease (COPD)-- slowly improving saturating 97 % on 5 L O2 via NC off high flow cont Nebulizer tx RTC with Xopenex cont PO Methyprednisolone 12 mg daily cont Theophylline Will try BIPAP at night 2. Pneumonia, Nosocomial , likely bacterial with chest congestion , cough , unable to expectorate Pulmonary following Started Vanco and Zosyn IV 3. DM type II with Hyperglycemia secondary to steroids Accucheck with coverage on Levemir to 20 units q hs , cont Glipizide - as rec by DR Vu 4. Acute exacerbation of CHF (congestive heart failure) Diastolic dysfunction Will give stat lasix 40 mg IV today and 40 mg daily cont Cardizem 240 mg po Daily. 5. C. difficile colitis Resolved. , completed tx with PO vanco Abdomen apperas distended today but patient had normal BM today Continue to monitor 6. Hyperthyroidism discussed case with Dr Vu TSH now normal ( 3.29) per Dr Vu d/c Methimazole 7. HTN (hypertension) Continue current management: Diltiazem and Losartan. increased Diltiazem dose 8. Hx of breast cancer Continue current management: Arimidex. 9. DVT prophylaxis RLE U/S negative for DVT. d/c Lovenox ( d/c due to nosebleed) decreased ASA to 81 mg daily
[2017-12-23] MEDS ORDERED: Levalbuterol 1.25 MG/3 ML Inhal Soln UD INH PRN (10:27)
--- NOTE | 2017-12-23 10:33 | CP.PCM.PN ---
<Tracie Summers - Last Filed: 12/23/17 12:57> Subjective - Subjective Subjective: -Patient seen and examined this AM. -Patient sitting up in bed, appears comfortable, not as fatigued as she was yesterday. Last night, Ventmask 50% was utilized. Patient denied any shortness of breath at that time. She is currently on nasal canula @ 5 LPM. -She continues to remain mildly tachycardic due to her current medication regimen as well as beta-agonists -Vitals otherwise stable- HR-102, BP-108/59, Temp- 97.6F -Labs stable with hemoglobin/hematocrit today- 8.5/25.8. -Will transfuse, if necessary, when hemoglobin drops to 8. -Decreased breath sounds b/l with some scattered rhonchi noted. -Patient was able to expectorate small amount of mucus filled secretions. -Oral steroid dosage was increased. Will continue aerosol and antibiotic therapies. -Acetazolemide was added to help decrease CO2 retention. -Will continue to monitor to ensure work of breathing does not drastically increase. -Chest physical therapy recommended using postural techniques as well clapping and cough to loosen secretions. Objective - Vital Signs/Intake and Output Vital Signs (last 24 hours): Temp Pulse Resp BP Pulse Ox 98.3 F 113 H 20 100/59 L 92 L 12/23/17 12:00 12/23/17 12:00 12/23/17 12:00 12/23/17 12:00 12/23/17 12:00 - Medications Medications: Current Medications Acetaminophen (Tylenol 325mg Tab) 650 mg PO Q6 PRN PRN Reason: Pain, Mild (1-3)/headache Last Admin: 12/21/17 05:23 Dose: 650 mg Acetazolamide (Diamox 250 Mg Tab) 250 mg PO BID [facility] Alprazolam (Xanax) 0.25 mg PO Q8 PRN PRN Reason: Anxiety Stop: 12/23/17 22:03 Last Admin: 12/22/17 21:44 Dose: 0.25 mg Anastrozole (Arimidex 1 Mg Tab) 1 mg PO DAILY [facility] Last Admin: 12/23/17 08:51 Dose: 1 mg Aspirin (Aspirin Chewable) 81 mg PO DAILY [facility] Last Admin: 12/23/17 08:52 Dose: 81 mg Atorvastatin Calcium (Lipitor) 40 mg PO HS [facility] Last Admin: 12/22/17 21:25 Dose: 40 mg Dextrose (Dextrose 50% Inj) 0 ml IV STAT PRN; Protocol PRN Reason: Hypoglycemia Protocol Dextrose (Glutose 15) 0 gm PO ONCE PRN; Protocol PRN Reason: Hypoglycemia Protocol Diltiazem HCl (Cardizem Cd) 240 mg PO DAILY [facility] Last Admin: 12/23/17 08:53 Dose: 240 mg Emollient Ointment (Vaseline Oint) 1 pkt TOP BID PRN PRN Reason: Dry skin Last Admin: 12/16/17 09:12 Dose: 1 pkt Furosemide (Lasix) 40 mg PO DAILY [facility] Last Admin: 12/23/17 08:55 Dose: 40 mg Gabapentin (Neurontin) 600 mg PO Q8 [facility] Last Admin: 12/23/17 08:57 Dose: 600 mg Glipizide (Glucotrol) 10 mg PO BIDAC [facility] Last Admin: 12/23/17 08:54 Dose: 10 mg Glucagon (Glucagen Diagnostic Kit) 0 mg IM STAT PRN; Protocol PRN Reason: Hypoglycemia Protocol Guaifenesin (Mucinex La) 600 mg PO Q12 [facility] Last Admin: 12/23/17 08:57 Dose: 600 mg Piperacillin Sod/Tazobactam (Sod 3.375 gm/ Sodium Chloride) 100 mls @ 100 mls/ hr IVPB Q8 [facility] PRN Reason: Protocol Last Admin: 12/23/17 10:07 Dose: 100 mls/hr Vancomycin HCl 500 mg/ Sodium (Chloride) 100 mls @ 100 mls/hr IVPB Q12 [facility] PRN Reason: Protocol Last Admin: 12/23/17 08:58 Dose: 100 mls/hr Insulin Detemir (Levemir) 20 units SC HS [facility] Last Admin: 12/22/17 21:27 Dose: 20 units Insulin Human Regular (Humulin R) 0 units SC ACHS [facility] PRN Reason: Protocol Last Admin: 12/23/17 08:54 Dose: Not Given Ipratropium [place] (Atrovent) 0.5 mg IH RQ6 [facility] Levalbuterol HCl (Xopenex) 0.63 mg INH RQ4 PRN PRN Reason: Shortness of Breath Last Admin: 12/22/17 03:30 Dose: 0.63 mg Levalbuterol HCl (Xopenex) 1.25 mg INH RQ6 [facility] Lidocaine (Lidoderm) 1 ea TD DAILY PRN PRN Reason: Pain, moderate (4-7) Last Admin: 11/29/17 09:38 Dose: 1 ea Methylprednisolone (Medrol) 20 mg PO DAILY [facility] Last Admin: 12/23/17 08:56 Dose: 20 mg Mirtazapine (Remeron) 15 mg PO HS [facility] Last Admin: 12/22/17 21:25 Dose: 15 mg Ondansetron HCl (Zofran Inj) 4 mg IVP Q4 PRN PRN Reason: Nausea/Vomiting Last Admin: 11/13/17 19:35 Dose: 4 mg Pantoprazole Sodium (Protonix Ec Tab) 40 mg PO DAILY [facility] Last Admin: 12/23/17 08:57 Dose: 40 mg Theophylline (Uniphyl) 400 mg PO DAILY [facility] Last Admin: 12/23/17 08:58 Dose: 400 mg - Labs Labs: 12/23/17 05:22 12/23/17 05:22 PT 10.3 Seconds (9.8-13.1) 12/11/17 20:08 INR 0.9 12/11/17 20:08 APTT 27.5 Seconds (25.6-37.1) 12/11/17 20:08 <Bala Benz - Last Filed: 12/23/17 13:10> Subjective - Date & Time of Evaluation Date of Evaluation: 12/23/17 Time of Evaluation: 10:33 - Subjective Subjective: Seen and examined together with the residents on rounds earlier today. Physical findings were discussed and any ancillary studies were reviewed. An assessment of the patient's- current status was made and a plan of further care was formulated. The entry in the EMR made by the resident does accurately reflect today's visit. Objective - Vital Signs/Intake and Output Vital Signs (last 24 hours): Temp Pulse Resp BP Pulse Ox 98.3 F 89 20 113/68 99 12/23/17 08:32 12/23/17 08:53 12/23/17 08:32 12/23/17 08:55 12/23/17 08:32 Intake and Output: 12/22/17 12/23/17 23:59 11:59 Intake Total 1160 Balance 1160 - Medications Medications: Current Medications Acetaminophen (Tylenol 325mg Tab) 650 mg PO Q6 PRN PRN Reason: Pain, Mild (1-3)/headache Last Admin: 12/21/17 05:23 Dose: 650 mg Acetazolamide (Diamox 250 Mg Tab) 250 mg PO BID [facility] Alprazolam (Xanax) 0.25 mg PO Q8 PRN PRN Reason: Anxiety Stop: 12/23/17 22:03 Last Admin: 12/22/17 21:44 Dose: 0.25 mg Anastrozole (Arimidex 1 Mg Tab) 1 mg PO DAILY [facility] Last Admin: 12/23/17 08:51 Dose: 1 mg Aspirin (Aspirin Chewable) 81 mg PO DAILY [facility] Last Admin: 12/23/17 08:52 Dose: 81 mg Atorvastatin Calcium (Lipitor) 40 mg PO HS [facility] Last Admin: 12/22/17 21:25 Dose: 40 mg Dextrose (Dextrose 50% Inj) 0 ml IV STAT PRN; Protocol PRN Reason: Hypoglycemia Protocol Dextrose (Glutose 15) 0 gm PO ONCE PRN; Protocol PRN Reason: Hypoglycemia Protocol Diltiazem HCl (Cardizem Cd) 240 mg PO DAILY [facility] Last Admin: 12/23/17 08:53 Dose: 240 mg Emollient Ointment (Vaseline Oint) 1 pkt TOP BID PRN PRN Reason: Dry skin Last Admin: 12/16/17 09:12 Dose: 1 pkt Furosemide (Lasix) 40 mg PO DAILY [facility] Last Admin: 12/23/17 08:55 Dose: 40 mg Gabapentin (Neurontin) 600 mg PO Q8 [facility] Last Admin: 12/23/17 08:57 Dose: 600 mg Glipizide (Glucotrol) 10 mg PO BIDAC [facility] Last Admin: 12/23/17 08:54 Dose: 10 mg Glucagon (Glucagen Diagnostic Kit) 0 mg IM STAT PRN; Protocol PRN Reason: Hypoglycemia Protocol Guaifenesin (Mucinex La) 600 mg PO Q12 [facility] Last Admin: 12/23/17 08:57 Dose: 600 mg Piperacillin Sod/Tazobactam (Sod 3.375 gm/ Sodium Chloride) 100 mls @ 100 mls/ hr IVPB Q8 [facility] PRN Reason: Protocol Last Admin: 12/23/17 10:07 Dose: 100 mls/hr Vancomycin HCl 500 mg/ Sodium (Chloride) 100 mls @ 100 mls/hr IVPB Q12 [facility] PRN Reason: Protocol Last Admin: 12/23/17 08:58 Dose: 100 mls/hr Insulin Detemir (Levemir) 20 units SC HS [facility] Last Admin: 12/22/17 21:27 Dose: 20 units Insulin Human Regular (Humulin R) 0 units SC ACHS [facility] PRN Reason: Protocol Last Admin: 12/23/17 08:54 Dose: Not Given Ipratropium [place] (Atrovent) 0.5 mg IH RQ6 [facility] Levalbuterol HCl (Xopenex) 0.63 mg INH RQ4 PRN PRN Reason: Shortness of Breath Last Admin: 12/22/17 03:30 Dose: 0.63 mg Levalbuterol HCl (Xopenex) 1.25 mg INH RQ6 [facility] Lidocaine (Lidoderm) 1 ea TD DAILY PRN PRN Reason: Pain, moderate (4-7) Last Admin: 11/29/17 09:38 Dose: 1 ea Methylprednisolone (Medrol) 20 mg PO DAILY [facility] Last Admin: 12/23/17 08:56 Dose: 20 mg Mirtazapine (Remeron) 15 mg PO HS [facility] Last Admin: 12/22/17 21:25 Dose: 15 mg Ondansetron HCl (Zofran Inj) 4 mg IVP Q4 PRN PRN Reason: Nausea/Vomiting Last Admin: 11/13/17 19:35 Dose: 4 mg Pantoprazole Sodium (Protonix Ec Tab) 40 mg PO DAILY [facility] Last Admin: 12/23/17 08:57 Dose: 40 mg Theophylline (Uniphyl) 400 mg PO DAILY [facility] Last Admin: 12/23/17 08:58 Dose: 400 mg - Labs Labs: 12/23/17 05:22 12/23/17 05:22 PT 10.3 Seconds (9.8-13.1) 12/11/17 20:08 INR 0.9 12/11/17 20:08 APTT 27.5 Seconds (25.6-37.1) 12/11/17 20:08
--- NOTE | 2017-12-23 18:41 | PN ---
Copied To: Polly Vu MD Attending MD: Polly Vu MD DATE: 12/23/2017 ENDO FOLLOWUP NOTE LOCATION: In room 408. SUBJECTIVE: This is a 67-year-old female with recent uncontrolled type 2 insulin-requiring diabetes, now being followed closely for metabolic management. Her glycemic levels are fluctuating, but improved as noted overnight and have ranged from 112 to 124 mg/dL. It was 341 at bedtime last night. LABORATORY DATA: Her chemistry showed a BUN of 17, sodium 138, potassium 3.8, chloride 98, CO2 of 39, glucose 112, and creatinine 0.4. ASSESSMENT AND PLAN: So at this time, we will continue the same basal insulin given as Levemir at 20 units subcutaneously at bedtime daily as given. We will continue also the glipizide given as 10 mg b.i.d. before meals as ordered. We will obtain serial chemistries and supplement accordingly as needed. We will follow. Polly Vu MD
[2017-12-23] MEDS: Insulin Detemir 100 Units/ml Inj SC SCH (21:29)
[2017-12-24] MEDS: Piperacillin/Tazobact 3.375 GM in Sodium Chloride 0.9% 100 ML IVPB SCH ×3 (00:07→17:07)
[2017-12-24] MEDS: Ipratropium 0.02% Inhal Soln (0.5 mg/2.5 ml) UD IH SCH ×4 (01:02→19:14)
[2017-12-24] MEDS: Levalbuterol 1.25 MG/3 ML Inhal Soln UD INH SCH ×4 (01:02→19:14)
[2017-12-24] MEDS: Insulin Regular 100 units/ml SC SCH ×4 (06:45→22:02)
[2017-12-24 07:08] LABS: HEMOGLOBIN 8.8 g/dL (12.0-16.0); MEAN CELL VOLUME 93.4 fl (81.0-99.0); MEAN CORPUSCULAR HGB CONC 33.2 g/dL (33.0-37.0); RBC 2.84 Mil/uL (3.80-5.20); WHITE BLOOD COUNT 5.6 K/uL (4.8-10.8)
[2017-12-24 07:10] LABS: BLOOD UREA NITROGEN 19 mg/dl (7-17); CALCIUM 8.7 mg/dL (8.4-10.2); GFR NON-AFRICAN AMERICAN > 60
[2017-12-24] MEDS: THEOPHYLLINE 400 MG T24(UNIPHYL) PO SCH (08:52)
[2017-12-24] MEDS: diltiaZEM 240 mg/24 Hours CD Cap PO SCH (08:53)
[2017-12-24] MEDS: guaiFENesin 600 mg ER Tab PO SCH ×2 (08:56→21:13)
[2017-12-24] MEDS: Pantoprazole 40 mg EC Tab PO SCH (08:57)
[2017-12-24] MEDS ORDERED: Potassium Chloride 20 mEq ER Tab PO ONE (10:00)
--- NOTE | 2017-12-24 11:04 | CP.PCM.PN ---
Subjective - Date & Time of Evaluation Date of Evaluation: 12/24/17 Time of Evaluation: 10:57 - Subjective Subjective: Little change from the day before. Lying in bed, becomes dyspneic with lengthy conversation. Mildly tachycardic at rest. Afebrile, oxygenation is okay on nasal canula @ 5 LPM. Tachypneic at rest. Alert and well oriented. Significantly increased AP diameter of thorax. Breath sounds are diminished bilaterally, sonorous rhonchi present in lower lobes. No wheezes heard. Scattered medium rales bilaterally in LL's. Bronchial breath sounds are heard in the right upper posterior thorax. Trace dependant edema noted, no cyanosis. Cough is a little more effective. Sputum sample obtained yesterday. Gram stain shows gm pos cocci and gm neg rods; will keep present abx until ID is complete. Vanco trough level is okay. Objective - Vital Signs/Intake and Output Vital Signs (last 24 hours): Temp Pulse Resp BP Pulse Ox 97.8 F 105 H 16 114/58 L 98 12/24/17 08:00 12/24/17 09:00 12/24/17 08:00 12/24/17 10:07 12/24/17 08:00 Intake and Output: 12/23/17 12/24/17 23:59 11:59 Intake Total 1200 Balance 1200 - Medications Medications: Current Medications Acetaminophen (Tylenol 325mg Tab) 650 mg PO Q6 PRN PRN Reason: Headache Last Admin: 12/24/17 07:02 Dose: 650 mg Acetazolamide (Diamox 250 Mg Tab) 250 mg PO BID [facility] Last Admin: 12/24/17 08:54 Dose: 250 mg Alprazolam (Xanax) 0.25 mg PO Q8 PRN PRN Reason: Anxiety Stop: 12/30/17 22:18 Aspirin (Aspirin Chewable) 81 mg PO DAILY [facility] Last Admin: 12/24/17 09:01 Dose: 81 mg Atorvastatin Calcium (Lipitor) 40 mg PO HS [facility] Last Admin: 12/23/17 21:10 Dose: 40 mg Dextrose (Dextrose 50% Inj) 0 ml IV STAT PRN; Protocol PRN Reason: Hypoglycemia Protocol Dextrose (Glutose 15) 0 gm PO ONCE PRN; Protocol PRN Reason: Hypoglycemia Protocol Diltiazem HCl (Cardizem Cd) 240 mg PO DAILY [facility] Last Admin: 12/24/17 08:53 Dose: 240 mg Emollient Ointment (Vaseline Oint) 1 pkt TOP BID PRN PRN Reason: Dry skin Last Admin: 12/16/17 09:12 Dose: 1 pkt Furosemide (Lasix) 40 mg PO DAILY [facility] Last Admin: 12/24/17 10:07 Dose: 40 mg Glipizide (Glucotrol) 10 mg PO BIDAC [facility] Last Admin: 12/24/17 08:52 Dose: 10 mg Glucagon (Glucagen Diagnostic Kit) 0 mg IM STAT PRN; Protocol PRN Reason: Hypoglycemia Protocol Guaifenesin (Mucinex La) 600 mg PO Q12 [facility] Last Admin: 12/24/17 08:56 Dose: 600 mg Piperacillin Sod/Tazobactam (Sod 3.375 gm/ Sodium Chloride) 100 mls @ 100 mls/ hr IVPB Q8 ANDREAS PRN Reason: Protocol Last Admin: 12/24/17 10:08 Dose: 100 mls/hr Vancomycin HCl 500 mg/ Sodium (Chloride) 100 mls @ 100 mls/hr IVPB Q12 ANDREAS PRN Reason: Protocol Last Admin: 12/24/17 09:02 Dose: 100 mls/hr Insulin Detemir (Levemir) 20 units SC HS [facility] Last Admin: 12/23/17 21:29 Dose: 20 units Insulin Human Regular (Humulin R) 0 units SC ACHS ANDREAS PRN Reason: Protocol Last Admin: 12/24/17 06:45 Dose: 3 u Ipratropium [place] (Atrovent) 0.5 mg IH RQ6 [facility] Last Admin: 12/24/17 07:56 Dose: 0.5 mg Levalbuterol HCl (Xopenex) 0.63 mg INH RQ4 PRN PRN Reason: Shortness of Breath Last Admin: 12/22/17 03:30 Dose: 0.63 mg Levalbuterol HCl (Xopenex) 1.25 mg INH RQ6 [facility] Last Admin: 12/24/17 07:56 Dose: 1.25 mg Lidocaine (Lidoderm) 1 ea TD DAILY PRN PRN Reason: Pain, moderate (4-7) Last Admin: 11/29/17 09:38 Dose: 1 ea Methylprednisolone (Medrol) 20 mg PO DAILY [facility] Last Admin: 12/24/17 08:55 Dose: 20 mg Mirtazapine (Remeron) 15 mg PO HS [facility] Last Admin: 12/23/17 21:10 Dose: 15 mg Ondansetron HCl (Zofran Inj) 4 mg IVP Q4 PRN PRN Reason: Nausea/Vomiting Last Admin: 11/13/17 19:35 Dose: 4 mg Pantoprazole Sodium (Protonix Ec Tab) 40 mg PO DAILY [facility] Last Admin: 12/24/17 08:57 Dose: 40 mg Theophylline (Uniphyl) 400 mg PO DAILY [facility] Last Admin: 12/24/17 08:52 Dose: 400 mg - Labs Labs: 12/24/17 05:58 12/24/17 05:58 PT 10.3 Seconds (9.8-13.1) 12/11/17 20:08 INR 0.9 12/11/17 20:08 APTT 27.5 Seconds (25.6-37.1) 12/11/17 20:08
--- NOTE | 2017-12-24 14:20 | PN ---
Copied To: Polly Vu MD Attending MD: Polly Vu MD DATE: 12/24/2017 ENDO FOLLOWUP NOTE LOCATION: In room 408. SUBJECTIVE: This is a 67-year-old female with recent uncontrolled type 2 insulin-requiring diabetes, now being followed closely for metabolic management. She is still on oral steroid therapy as given with glycemic fluctuations improving thereof. Her glucose levels overnight have ranged from 107 to 167 mg per dL. LABORATORY DATA: Her latest chemistries today showed a BUN of 19, sodium 138, potassium 3.2, chloride 101, CO2 of 32, glucose 207, and creatinine 0.7. ASSESSMENT AND PLAN: So at this time, we will continue the same basal insulin given as Levemir at 20 units subcutaneously at bedtime daily as given. We will also continue the low-dose correction scale using regular insulin as ordered. Moreover, we will continue the glipizide given as 10 mg b.i.d. before meals as ordered. We will obtain serial chemistries and supplement accordingly as needed. We will follow. Polly Vu MD
--- NOTE | 2017-12-24 15:35 | CP.PCM.PN ---
Subjective - Date & Time of Evaluation Date of Evaluation: 12/24/17 Time of Evaluation: 10:00 - Subjective Subjective: Patient seen and examined bedside. Chronically ill female, lying in bed . With dyspnea with minimal exertion .On 5 l O2 via NC saturating 97 %, afebrile, with chest congestion , coughing spells and expectorating small amount of sputum. facial , RUE edema Abdominal distention is less Objective - Vital Signs/Intake and Output Vital Signs (last 24 hours): Temp Pulse Resp BP Pulse Ox 98.0 F 108 H 16 106/62 93 L 12/24/17 12:00 12/24/17 12:00 12/24/17 12:00 12/24/17 12:00 12/24/17 12:00 - Medications Medications: Current Medications Acetaminophen (Tylenol 325mg Tab) 650 mg PO Q6 PRN PRN Reason: Headache Last Admin: 12/24/17 07:02 Dose: 650 mg Acetazolamide (Diamox 250 Mg Tab) 250 mg PO BID [facility] Last Admin: 12/24/17 08:54 Dose: 250 mg Alprazolam (Xanax) 0.25 mg PO Q8 PRN PRN Reason: Anxiety Stop: 12/30/17 22:18 Aspirin (Aspirin Chewable) 81 mg PO DAILY [facility] Last Admin: 12/24/17 09:01 Dose: 81 mg Atorvastatin Calcium (Lipitor) 40 mg PO HS [facility] Last Admin: 12/23/17 21:10 Dose: 40 mg Dextrose (Dextrose 50% Inj) 0 ml IV STAT PRN; Protocol PRN Reason: Hypoglycemia Protocol Dextrose (Glutose 15) 0 gm PO ONCE PRN; Protocol PRN Reason: Hypoglycemia Protocol Diltiazem HCl (Cardizem Cd) 240 mg PO DAILY [facility] Last Admin: 12/24/17 08:53 Dose: 240 mg Emollient Ointment (Vaseline Oint) 1 pkt TOP BID PRN PRN Reason: Dry skin Last Admin: 12/16/17 09:12 Dose: 1 pkt Furosemide (Lasix) 40 mg PO DAILY [facility] Last Admin: 12/24/17 10:07 Dose: 40 mg Glipizide (Glucotrol) 10 mg PO BIDAC [facility] Last Admin: 12/24/17 08:52 Dose: 10 mg Glucagon (Glucagen Diagnostic Kit) 0 mg IM STAT PRN; Protocol PRN Reason: Hypoglycemia Protocol Guaifenesin (Mucinex La) 600 mg PO Q12 [facility] Last Admin: 12/24/17 08:56 Dose: 600 mg Piperacillin Sod/Tazobactam (Sod 3.375 gm/ Sodium Chloride) 100 mls @ 100 mls/ hr IVPB Q8 ANDREAS PRN Reason: Protocol Last Admin: 12/24/17 10:08 Dose: 100 mls/hr Vancomycin HCl 500 mg/ Sodium (Chloride) 100 mls @ 100 mls/hr IVPB Q12 ANDREAS PRN Reason: Protocol Last Admin: 12/24/17 09:02 Dose: 100 mls/hr Insulin Detemir (Levemir) 20 units SC HS [facility] Last Admin: 12/23/17 21:29 Dose: 20 units Insulin Human Regular (Humulin R) 0 units SC ACHS ANDREAS PRN Reason: Protocol Last Admin: 12/24/17 12:28 Dose: Not Given Ipratropium [place] (Atrovent) 0.5 mg IH RQ6 [facility] Last Admin: 12/24/17 13:36 Dose: 0.5 mg Levalbuterol HCl (Xopenex) 0.63 mg INH RQ4 PRN PRN Reason: Shortness of Breath Last Admin: 12/22/17 03:30 Dose: 0.63 mg Levalbuterol HCl (Xopenex) 1.25 mg INH RQ6 [facility] Last Admin: 12/24/17 13:36 Dose: 1.25 mg Lidocaine (Lidoderm) 1 ea TD DAILY PRN PRN Reason: Pain, moderate (4-7) Last Admin: 11/29/17 09:38 Dose: 1 ea Methylprednisolone (Medrol) 20 mg PO DAILY [facility] Last Admin: 12/24/17 08:55 Dose: 20 mg Mirtazapine (Remeron) 15 mg PO HS [facility] Last Admin: 12/23/17 21:10 Dose: 15 mg Ondansetron HCl (Zofran Inj) 4 mg IVP Q4 PRN PRN Reason: Nausea/Vomiting Last Admin: 11/13/17 19:35 Dose: 4 mg Pantoprazole Sodium (Protonix Ec Tab) 40 mg PO DAILY [facility] Last Admin: 12/24/17 08:57 Dose: 40 mg Theophylline (Uniphyl) 400 mg PO DAILY [facility] Last Admin: 12/24/17 08:52 Dose: 400 mg - Labs Labs: 12/24/17 05:58 12/24/17 05:58 PT 10.3 Seconds (9.8-13.1) 12/11/17 20:08 INR 0.9 12/11/17 20:08 APTT 27.5 Seconds (25.6-37.1) 12/11/17 20:08 - Constitutional Appears: Chronically Ill, Other (with respiraoty distree with minimal exertion) - Head Exam Head Exam: ATRAUMATIC, NORMOCEPHALIC - Eye Exam Eye Exam: PERRL Pupil Exam: NORMAL ACCOMODATION - ENT Exam ENT Exam: Mucous Membranes Moist, Normal Exam - Neck Exam Neck Exam: Normal Inspection - Respiratory Exam Respiratory Exam: Decreased Breath Sounds, Prolonged Expiratory Phase, Rales, Rhonchi - Cardiovascular Exam Cardiovascular Exam: REGULAR RHYTHM, +S1, +S2. absent: JVD - GI/Abdominal Exam GI & Abdominal Exam: Distended, Soft, Normal Bowel Sounds. absent: Guarding, Tenderness, Rebound - Rectal Exam Rectal Exam: Deferred - Extremities Exam Extremities Exam: Pedal Edema (1 +) Additional comments: RUE chronic lymphedema - Neurological Exam Neurological Exam: Alert, Awake, CN II-XII Intact, Oriented x3 - Psychiatric Exam Psychiatric exam: Anxious - Skin Skin Exam: Dry, Pallor, Warm Additional comments: multiple upper extremity, lower extremity and abdominal wall echymosis Assessment and Plan - Assessment and Plan (Free Text) Assessment: 67 yo female with extensive medical history including COPD, CHF, hypothyroidism , history of breast Cancer s/p mastectomy, chronic RUE lymphedema was brought into the ED because of dyspnea. Patient was then found to be in respiratory failure secondary to COPD and CHF exacerbation. Patient was admitted to ICU where she was on bipap and IV steroids and diuretics. She is now in Telemetry, slowly improving but still with dyspnea at rest while on O2 via NC with minimal effort and with chest congestion unable to expectorate Pulmonary following and started on vanco and Zosyn for possible Pneumonia 1. Acute on Chronic Hypercapneic and Hypoxemic Respiratory Failure sec to Acute exacerbation of chronic obstructive pulmonary disease (COPD)-- slowly improving saturating 97 % on 5 L O2 via NC off high flow cont Nebulizer tx RTC with Xopenex cont PO Methyprednisolone 12 mg daily cont Theophylline Pulmonary following BIPAP / Venti mask at night 2. Pneumonia, Nosocomial , likely bacterial with chest congestion , cough , unable to expectorate Pulmonary following Sputum cx growing gram negative rods Started Vanco and Zosyn IV 3. DM type II with Hyperglycemia secondary to steroids Accucheck with coverage on Levemir to 20 units q hs , cont Glipizide - as rec by DR Vu 4. Acute exacerbation of CHF (congestive heart failure) Diastolic dysfunction lasix 40 mg daily cont Cardizem 240 mg po Daily. 5. C. difficile colitis Resolved. , completed tx with PO vanco Abdomen distention has improved Continue to monitor 6. Hyperthyroidism discussed case with Dr Vu TSH now normal ( 3.29) per Dr Vu d/c Methimazole 7. HTN (hypertension) Continue current management: Diltiazem and Losartan. increased Diltiazem dose 8. Hx of breast cancer Continue current management: Arimidex. 9. DVT prophylaxis RLE U/S negative for DVT. d/c Lovenox ( d/c due to nosebleed) decreased ASA to 81 mg daily
[2017-12-24] MEDS: Petrolatum UD PAK TOP PRN (17:03)
[2017-12-24] MEDS: Insulin Detemir 100 Units/ml Inj SC SCH (22:06)
[2017-12-25] MEDS: Piperacillin/Tazobact 3.375 GM in Sodium Chloride 0.9% 100 ML IVPB SCH ×2 (00:53→09:14)
[2017-12-25] MEDS: Levalbuterol 1.25 MG/3 ML Inhal Soln UD INH SCH ×4 (01:05→19:38)
[2017-12-25] MEDS: Ipratropium 0.02% Inhal Soln (0.5 mg/2.5 ml) UD IH SCH ×4 (01:05→19:38)
[2017-12-25] MEDS: Insulin Regular 100 units/ml SC SCH ×3 (06:47→21:56)
[2017-12-25 07:16] LABS: HEMOGLOBIN 8.9 g/dL (12.0-16.0); MEAN CELL VOLUME 94.5 fl (81.0-99.0); MEAN CORPUSCULAR HEMOGLOBIN 30.2 pg (27.0-31.0); RBC 2.96 Mil/uL (3.80-5.20); RED CELL DISTRIBUTION WIDTH 23.1 % (11.5-14.5); WHITE BLOOD COUNT 5.3 K/uL (4.8-10.8)
[2017-12-25 07:33] LABS: BLOOD UREA NITROGEN 20 mg/dl (7-17); CALCIUM 8.9 mg/dL (8.4-10.2); GFR NON-AFRICAN AMERICAN > 60
--- NOTE | 2017-12-25 07:33 | CP.PCM.PN ---
Subjective - Date & Time of Evaluation Date of Evaluation: 12/25/17 Time of Evaluation: 10:00 - Subjective Subjective: Patient seen and examined bedside. Chronically ill patient . Lying in bed in mild respiratory distress with minimal effort . With nasal bleed On 5 L O2 via NC saturating 93-98 % .Using Venturi mask at night HR 93 Sputum cx positive for Klebsiella Pneumonia ESBL + Objective - Vital Signs/Intake and Output Vital Signs (last 24 hours): Temp Pulse Resp BP Pulse Ox 97.9 F 88 18 116/70 99 12/25/17 05:00 12/25/17 05:00 12/25/17 05:00 12/25/17 05:00 12/25/17 05:00 - Medications Medications: Current Medications Acetaminophen (Tylenol 325mg Tab) 650 mg PO Q6 PRN PRN Reason: Headache Last Admin: 12/24/17 07:02 Dose: 650 mg Acetazolamide (Diamox 250 Mg Tab) 250 mg PO BID [facility] Last Admin: 12/24/17 17:02 Dose: 250 mg Alprazolam (Xanax) 0.25 mg PO Q8 PRN PRN Reason: Anxiety Stop: 12/30/17 22:18 Last Admin: 12/24/17 22:09 Dose: 0.25 mg Aspirin (Aspirin Chewable) 81 mg PO DAILY [facility] Last Admin: 12/24/17 09:01 Dose: 81 mg Atorvastatin Calcium (Lipitor) 40 mg PO HS [facility] Last Admin: 12/24/17 21:13 Dose: 40 mg Dextrose (Dextrose 50% Inj) 0 ml IV STAT PRN; Protocol PRN Reason: Hypoglycemia Protocol Dextrose (Glutose 15) 0 gm PO ONCE PRN; Protocol PRN Reason: Hypoglycemia Protocol Diltiazem HCl (Cardizem Cd) 240 mg PO DAILY [facility] Last Admin: 12/24/17 08:53 Dose: 240 mg Emollient Ointment (Vaseline Oint) 1 pkt TOP BID PRN PRN Reason: Dry skin Last Admin: 12/24/17 17:03 Dose: 1 pkt Furosemide (Lasix) 40 mg PO DAILY [facility] Last Admin: 12/24/17 10:07 Dose: 40 mg Glipizide (Glucotrol) 10 mg PO BIDAC [facility] Last Admin: 12/24/17 17:16 Dose: 10 mg Glucagon (Glucagen Diagnostic Kit) 0 mg IM STAT PRN; Protocol PRN Reason: Hypoglycemia Protocol Guaifenesin (Mucinex La) 600 mg PO Q12 [facility] Last Admin: 12/24/17 21:13 Dose: 600 mg Piperacillin Sod/Tazobactam (Sod 3.375 gm/ Sodium Chloride) 100 mls @ 100 mls/ hr IVPB Q8 ANDREAS PRN Reason: Protocol Last Admin: 12/25/17 00:53 Dose: 100 mls/hr Vancomycin HCl 500 mg/ Sodium (Chloride) 100 mls @ 100 mls/hr IVPB Q12 ANDREAS PRN Reason: Protocol Last Admin: 12/24/17 21:13 Dose: 100 mls/hr Insulin Detemir (Levemir) 20 units SC HS [facility] Last Admin: 12/24/17 22:06 Dose: 20 units Insulin Human Regular (Humulin R) 0 units SC ACHS ANDREAS PRN Reason: Protocol Last Admin: 12/25/17 06:47 Dose: Not Given Ipratropium [place] (Atrovent) 0.5 mg IH RQ6 [facility] Last Admin: 12/25/17 01:05 Dose: 0.5 mg Levalbuterol HCl (Xopenex) 0.63 mg INH RQ4 PRN PRN Reason: Shortness of Breath Last Admin: 12/22/17 03:30 Dose: 0.63 mg Levalbuterol HCl (Xopenex) 1.25 mg INH RQ6 [facility] Last Admin: 12/25/17 07:28 Dose: 1.25 mg Lidocaine (Lidoderm) 1 ea TD DAILY PRN PRN Reason: Pain, moderate (4-7) Last Admin: 11/29/17 09:38 Dose: 1 ea Methylprednisolone (Medrol) 20 mg PO DAILY [facility] Last Admin: 12/24/17 08:55 Dose: 20 mg Mirtazapine (Remeron) 15 mg PO HS [facility] Last Admin: 12/24/17 21:13 Dose: 15 mg Ondansetron HCl (Zofran Inj) 4 mg IVP Q4 PRN PRN Reason: Nausea/Vomiting Last Admin: 11/13/17 19:35 Dose: 4 mg Pantoprazole Sodium (Protonix Ec Tab) 40 mg PO DAILY [facility] Last Admin: 12/24/17 08:57 Dose: 40 mg Theophylline (Uniphyl) 400 mg PO DAILY [facility] Last Admin: 12/24/17 08:52 Dose: 400 mg - Labs Labs: 12/25/17 05:35 12/24/17 05:58 PT 10.3 Seconds (9.8-13.1) 12/11/17 20:08 INR 0.9 12/11/17 20:08 APTT 27.5 Seconds (25.6-37.1) 12/11/17 20:08 - Constitutional Appears: Chronically Ill, Other (mild resp[iratory distress) - Head Exam Head Exam: ATRAUMATIC, NORMOCEPHALIC Additional comments: facial edema - Eye Exam Eye Exam: EOMI, PERRL - ENT Exam ENT Exam: Mucous Membranes Moist Additional comments: nasal bleed - Neck Exam Neck Exam: Normal Inspection - Respiratory Exam Respiratory Exam: Accessory Muscle Use, Decreased Breath Sounds (bilateral), Prolonged Expiratory Phase, Rhonchi, Respiratory Distress - Cardiovascular Exam Cardiovascular Exam: REGULAR RHYTHM, RRR, +S1, +S2. absent: JVD - GI/Abdominal Exam GI & Abdominal Exam: Soft, Normal Bowel Sounds. absent: Distended, Tenderness, Rebound - Rectal Exam Rectal Exam: Deferred - Extremities Exam Extremities Exam: Pedal Edema (1 +). absent: Calf Tenderness Additional comments: RUE lymphedema - Back Exam Back Exam: NORMAL INSPECTION - Neurological Exam Neurological Exam: Alert, Awake, CN II-XII Intact, Oriented x3 - Psychiatric Exam Psychiatric exam: Normal Affect, Normal Mood - Skin Skin Exam: Dry, Pallor, Warm Additional comments: multiple echymotic areas to abdomen , Lower and upper extremities Assessment and Plan - Assessment and Plan (Free Text) Assessment: 67 yo female with extensive medical history including COPD, CHF, hypothyroidism , history of breast Cancer s/p mastectomy, chronic RUE lymphedema was brought into the ED because of dyspnea. Patient was then found to be in respiratory failure secondary to COPD and CHF exacerbation. Patient was admitted to ICU where she was on bipap and IV steroids and diuretics. She is now in Telemetry, slowly improving but still with dyspnea at rest while on O2 via NC with minimal effort and with chest congestion unable to expectorate Sputum cx positive foe ESBl + Klebsiella Pneumonia 1. Acute on Chronic Hypercapneic and Hypoxemic Respiratory Failure sec to Acute exacerbation of chronic obstructive pulmonary disease (COPD)-- slowly improving saturating 97 % on 5 L O2 via NC . using Venti mask at night off high flow cont Nebulizer tx RTC with Xopenex cont PO Methyprednisolone 20 mg daily cont Theophylline Pulmonary following Sputum cx positive for ESBl Klebsiella Pneumonia. Will place on contact isp; ation and Start Meropene. ID consult with Dr. Obrien Will d/c Lee and Adalisyn 2. Pneumonia, Nosocomial , likely bacterial with chest congestion , cough , unable to expectorate Pulmonary following Sputum cx growing ESBl + klebsiella Pneumonia . Will start Meropenem . D/C LEE AND AdaliSYN ID consult with Dr. Obrien 3. DM type II with Hyperglycemia secondary to steroids Accucheck with coverage on Levemir to 20 units q hs , cont Glipizide - as rec by DR Vu 4. Acute exacerbation of CHF (congestive heart failure) Diastolic dysfunction Diuresing well continue lasix 40 mg daily cont Cardizem 240 mg po Daily. 5. C. difficile colitis Resolved. , completed tx with PO vanco Abdomen distention has improved Continue to monitor 6. Hyperthyroidism discussed case with Dr Vu TSH now normal ( 3.29) per Dr Vu d/c Methimazole 7. HTN (hypertension) Continue current management: Diltiazem and Losartan. increased Diltiazem dose 8. Hx of breast cancer Continue current management: Arimidex. 9. Hypokalemia Diuretic induced Start kdur 20 MEQ daily 10. Anemia of chronic disease h&H stable 11. DVT prophylaxis RLE U/S negative for DVT. d/c Lovenox ( d/c due to nosebleed) decreased ASA to 81 mg daily
[2017-12-25] MEDS: Pantoprazole 40 mg EC Tab PO SCH (09:10)
[2017-12-25] MEDS: THEOPHYLLINE 400 MG T24(UNIPHYL) PO SCH (09:10)
[2017-12-25] MEDS: diltiaZEM 240 mg/24 Hours CD Cap PO SCH (09:10)
[2017-12-25] MEDS: guaiFENesin 600 mg ER Tab PO SCH ×2 (09:11→21:54)
--- NOTE | 2017-12-25 09:54 | PN ---
Copied To: Polly Vu MD Attending MD: Polly Vu MD DATE: 12/25/2017 ENDOCRINOLOGY FOLLOWUP NOTE LOCATION: Room 408. This is a 67-year-old female with recent uncontrolled type 2 insulin-requiring diabetes, now being followed closely for metabolic management. Her glycemic levels are much improved at this time as noted overnight, and the glucose levels have ranged from 107 to 167 mg/dL. Her latest chemistry showed a BUN of 20, sodium 140, potassium 3.2, chloride 103, CO2 of 31, glucose 97, and creatinine 0.6. So at this time, we will continue the same basal insulin given as Levemir at 20 units subcu at bedtime daily as given with the glipizide given as 10 mg b.i.d. as ordered. We will obtain serial chemistries and supplement accordingly as needed. We will follow. Polly Vu MD
[2017-12-25] MEDS ORDERED: Meropenem 1 GM in Sodium Chloride 0.9% 100 ML IVPB SCH (11:00)
--- NOTE | 2017-12-25 13:29 | PCM.RRT ---
LEATHER ROLLER Nurse Assessment - Situation LEATHER ROLLER Responder Arrival Time: 10:30 - Ventilator Settings FIO2 (% Oxygen): 50 I.Reason for LEATHER ROLLER - A) Acute Change in Patient: Subjective: LEATHER ROLLER Start Time: 100pm LEATHER ROLLER Reason: Chest pain S: LEATHER ROLLER called by RN because patient was complaining of chest pain. Describes as substernal. O: BP116/85, HR 106, O2 sat 96 on 2 L O2 via NC General: Elderly woman seen lying in bed, anxious appearing, alert Cardiac: Tachycardic, regular, no murmurs Pulm: Poor inspiratory effort, positive air entry BL, no rales or wheezing appreciated, +suprasternal retractions, mild resp distress noted Abdomen: Obese, soft, non tender Ext: Significant pitting edema of right upper extremity extending from shoulder to finger. Radial pulse palpable, No pedal edema LEATHER ROLLER Interventions: EKG Stat: Sinus Tachycardia, old Lateral wall infarct (No acute ischemic changes when compared to previous) Xanax 0.25mg A/P: 67 y/o female admitted for Dyspnea 2/2 to COPD vs CHF exacerbation, LEATHER ROLLER called for chest pain in setting of anxiety. EKG no signs of acute ischemic event. Not likely cardiac- possible secondary to anxiety. Xanax given. Will continue to monitor. LEATHER ROLLER Responders: Hospitalist Adjuster And Inspector, Dr. Marquis and resident, Dr. Reyes.
[2017-12-25] MEDS: Potassium Chloride 20 mEq ER Tab PO SCH (17:01)
[2017-12-25] MEDS: Meropenem 1 GM in Sodium Chloride 0.9% 100 ML IVPB SCH (21:53)
[2017-12-25] MEDS: Insulin Detemir 100 Units/ml Inj SC SCH (21:54)
--- NOTE | 2017-12-25 22:42 | CARD ---
APPROVED REPORT Date of service: 12/25/2017 EKG Measurement Heart [id number] <Conclusion> Sinus tachycardia ST & T wave abnormality, consider lateral ischemia Abnormal ECG
[2017-12-26] MEDS: Ipratropium 0.02% Inhal Soln (0.5 mg/2.5 ml) UD IH SCH ×4 (01:16→19:12)
[2017-12-26] MEDS: Levalbuterol 1.25 MG/3 ML Inhal Soln UD INH SCH ×4 (01:16→19:12)
[2017-12-26 05:49] LABS: HEMOGLOBIN 10.2 g/dL (12.0-16.0); MEAN CELL VOLUME 93.7 fl (81.0-99.0); MEAN CORPUSCULAR HEMOGLOBIN 30.9 pg (27.0-31.0); RBC 3.31 Mil/uL (3.80-5.20); RED CELL DISTRIBUTION WIDTH 23.9 % (11.5-14.5); WHITE BLOOD COUNT 6.6 K/uL (4.8-10.8)
[2017-12-26] MEDS: Meropenem 1 GM in Sodium Chloride 0.9% 100 ML IVPB SCH ×3 (05:56→21:54)
[2017-12-26 06:28] LABS: BLOOD UREA NITROGEN 24 mg/dl (7-17); GFR NON-AFRICAN AMERICAN > 60
[2017-12-26] MEDS: Insulin Regular 100 units/ml SC SCH ×4 (07:36→21:55)
[2017-12-26] MEDS: Potassium CL 10 MEQ/50 ML 50 ML IVPB SCH ×4 (08:12→13:07)
[2017-12-26] MEDS: guaiFENesin 600 mg ER Tab PO SCH ×2 (08:12→21:54)
[2017-12-26] MEDS: THEOPHYLLINE 400 MG T24(UNIPHYL) PO SCH (08:13)
[2017-12-26] MEDS: diltiaZEM 240 mg/24 Hours CD Cap PO SCH (08:13)
[2017-12-26] MEDS: Potassium Chloride 20 mEq ER Tab PO SCH (08:13)
[2017-12-26] MEDS: Pantoprazole 40 mg EC Tab PO SCH (08:14)
--- NOTE | 2017-12-26 11:03 | CP.PCM.PN ---
<Tracie Summers - Last Filed: 12/26/17 11:34> Subjective - Date & Time of Evaluation Date of Evaluation: 12/26/17 Time of Evaluation: 08:15 - Subjective Subjective: -Patient seen and examined this AM. -Patient laying in bed, states she is fatigued with decreased appetite. Patient denied any shortness of breath or chest pain at that time. 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 EKG was unchanged from previous. Chest pain likely due to anxiety. -Vitals this AM stable- HR-93, BP-101/61, Temp- 97.5F, spo2- 97% on NC @5 LPM, RR-20 -Labs this AM: Potassium was 2.4 today. Patient on both PO and IV Potassium replacement. Hemoglobin/hematocrit today- 810.2/.Will continue to monitor. -Will transfuse, if necessary, when hemoglobin drops to 8. -Scattered rhonchi and rales noted with decreased breath sounds in b/l bases. CXR ordered. Will follow up results. -Patient sputum culture was + for klebsiella pneumonia. She was started on meropenem IV 12/25/2017. -Acetazolemide was added 12/23/2017. Will continue to monitor work of breathing. -Chest physical therapy recommended using postural techniques as well clapping and cough to loosen secretions. Objective - Vital Signs/Intake and Output Vital Signs (last 24 hours): Temp Pulse Resp BP Pulse Ox 97.7 F 95 H 18 149/73 98 12/26/17 08:10 12/26/17 09:00 12/26/17 08:10 12/26/17 08:13 12/26/17 08:10 - Medications Medications: Current Medications Acetaminophen (Tylenol 325mg Tab) 650 mg PO Q6 PRN PRN Reason: Headache Last Admin: 12/24/17 07:02 Dose: 650 mg Acetazolamide (Diamox 250 Mg Tab) 250 mg PO BID [facility] Last Admin: 12/26/17 08:12 Dose: 250 mg Alprazolam (Xanax) 0.25 mg PO Q8 PRN PRN Reason: Anxiety Stop: 12/30/17 22:18 Last Admin: 12/25/17 21:53 Dose: 0.25 mg Aspirin (Aspirin Chewable) 81 mg PO DAILY [facility] Last Admin: 12/26/17 08:13 Dose: 81 mg Atorvastatin Calcium (Lipitor) 40 mg PO HS [facility] Last Admin: 12/25/17 21:53 Dose: 40 mg Dextrose (Dextrose 50% Inj) 0 ml IV STAT PRN; Protocol PRN Reason: Hypoglycemia Protocol Dextrose (Glutose 15) 0 gm PO ONCE PRN; Protocol PRN Reason: Hypoglycemia Protocol Diltiazem HCl (Cardizem Cd) 240 mg PO DAILY [facility] Last Admin: 12/26/17 08:13 Dose: 240 mg Emollient Ointment (Vaseline Oint) 1 pkt TOP BID PRN PRN Reason: Dry skin Last Admin: 12/24/17 17:03 Dose: 1 pkt Furosemide (Lasix) 40 mg PO DAILY [facility] Last Admin: 12/25/17 09:10 Dose: 40 mg Glipizide (Glucotrol) 10 mg PO BIDAC [facility] Last Admin: 12/26/17 08:13 Dose: 10 mg Glucagon (Glucagen Diagnostic Kit) 0 mg IM STAT PRN; Protocol PRN Reason: Hypoglycemia Protocol Guaifenesin (Mucinex La) 600 mg PO Q12 [facility] Last Admin: 12/26/17 08:12 Dose: 600 mg Meropenem 1 gm/ Sodium (Chloride) 100 mls @ 100 mls/hr IVPB Q8@0500,1300,2100 [facility] PRN Reason: Protocol Last Admin: 12/26/17 05:56 Dose: 100 mls/hr Potassium Chloride (Potassium Cl 10meq/50ml Sterile Water) 50 mls @ 50 mls/hr IVPB Q1 [facility] Stop: 12/26/17 11:59 Last Admin: 12/26/17 09:34 Dose: 50 mls/hr Insulin Detemir (Levemir) 20 units SC HS [facility] Last Admin: 12/25/17 21:54 Dose: 20 units Insulin Human Regular (Humulin R) 0 units SC ACHS [facility] PRN Reason: Protocol Last Admin: 12/26/17 07:36 Dose: Not Given Ipratropium [place] (Atrovent) 0.5 mg IH RQ6 [facility] Last Admin: 12/26/17 07:23 Dose: 0.5 mg Levalbuterol HCl (Xopenex) 0.63 mg INH RQ4 PRN PRN Reason: Shortness of Breath Last Admin: 12/22/17 03:30 Dose: 0.63 mg Levalbuterol HCl (Xopenex) 1.25 mg INH RQ6 [facility] Last Admin: 12/26/17 07:23 Dose: 1.25 mg Lidocaine (Lidoderm) 1 ea TD DAILY PRN PRN Reason: Pain, moderate (4-7) Last Admin: 11/29/17 09:38 Dose: 1 ea Methylprednisolone (Medrol) 20 mg PO DAILY [facility] Last Admin: 12/26/17 08:12 Dose: 20 mg Mirtazapine (Remeron) 15 mg PO HS [facility] Last Admin: 12/25/17 21:53 Dose: 15 mg Ondansetron HCl (Zofran Inj) 4 mg IVP Q4 PRN PRN Reason: Nausea/Vomiting Last Admin: 11/13/17 19:35 Dose: 4 mg Pantoprazole Sodium (Protonix Ec Tab) 40 mg PO DAILY [facility] Last Admin: 12/26/17 08:14 Dose: 40 mg Potassium Chloride (K-Dur 20 Meq Er Tab) 20 meq PO DAILY [facility] Last Admin: 12/26/17 08:13 Dose: 20 meq Theophylline (Uniphyl) 400 mg PO DAILY [facility] Last Admin: 12/26/17 08:13 Dose: 400 mg - Labs Labs: 12/26/17 04:20 12/26/17 04:20 PT 10.3 Seconds (9.8-13.1) 12/11/17 20:08 INR 0.9 12/11/17 20:08 APTT 27.5 Seconds (25.6-37.1) 12/11/17 20:08 <Bala Benz - Last Filed: 12/27/17 07:14> Subjective - Subjective Subjective: Seen and examined together with the residents on rounds. Physical findings and ancillary studies were reviewed. Diagnosis and plan of care were formulated after discussion. The entry in the EMR as made by the resident accurately reflects this encounter. Objective - Vital Signs/Intake and Output Vital Signs (last 24 hours): Temp Pulse Resp BP Pulse Ox 97.9 F 102 H 18 110/53 L 97 12/27/17 04:49 12/27/17 04:49 12/27/17 04:49 12/27/17 04:49 12/27/17 04:49 Intake and Output: 12/26/17 12/27/17 23:59 11:59 Intake Total 1020 Balance 1020 - Medications Medications: Current Medications Acetaminophen (Tylenol 325mg Tab) 650 mg PO Q6 PRN PRN Reason: Headache Last Admin: 12/24/17 07:02 Dose: 650 mg Acetazolamide (Diamox 250 Mg Tab) 250 mg PO BID [facility] Last Admin: 12/26/17 16:50 Dose: 250 mg Alprazolam (Xanax) 0.25 mg PO Q8 PRN PRN Reason: Anxiety Stop: 12/30/17 22:18 Last Admin: 12/26/17 21:53 Dose: 0.25 mg Aspirin (Aspirin Chewable) 81 mg PO DAILY [facility] Last Admin: 12/26/17 08:13 Dose: 81 mg Atorvastatin Calcium (Lipitor) 40 mg PO HS [facility] Last Admin: 12/26/17 21:53 Dose: 40 mg Dextrose (Dextrose 50% Inj) 0 ml IV STAT PRN; Protocol PRN Reason: Hypoglycemia Protocol Dextrose (Glutose 15) 0 gm PO ONCE PRN; Protocol PRN Reason: Hypoglycemia Protocol Diltiazem HCl (Cardizem Cd) 240 mg PO DAILY [facility] Last Admin: 12/26/17 08:13 Dose: 240 mg Emollient Ointment (Vaseline Oint) 1 pkt TOP BID PRN PRN Reason: Dry skin Last Admin: 12/24/17 17:03 Dose: 1 pkt Furosemide (Lasix) 40 mg PO DAILY [facility] Last Admin: 12/25/17 09:10 Dose: 40 mg Glipizide (Glucotrol) 10 mg PO BIDAC [facility] Last Admin: 12/26/17 16:50 Dose: 10 mg Glucagon (Glucagen Diagnostic Kit) 0 mg IM STAT PRN; Protocol PRN Reason: Hypoglycemia Protocol Guaifenesin (Mucinex La) 600 mg PO Q12 [facility] Last Admin: 12/26/17 21:54 Dose: 600 mg Meropenem 1 gm/ Sodium (Chloride) 100 mls @ 100 mls/hr IVPB Q8@0500,1300,2100 [facility] PRN Reason: Protocol Last Admin: 12/27/17 06:10 Dose: 100 mls/hr Insulin Detemir (Levemir) 10 units SC HS [facility] Last Admin: 12/26/17 21:56 Dose: 10 units Insulin Human Regular (Humulin R) 0 units SC ACHS [facility] PRN Reason: Protocol Last Admin: 12/26/17 21:55 Dose: Not Given Ipratropium [place] (Atrovent) 0.5 mg IH RQ6 [facility] Last Admin: 12/27/17 07:09 Dose: 0.5 mg Levalbuterol HCl (Xopenex) 0.63 mg INH RQ4 PRN PRN Reason: Shortness of Breath Last Admin: 12/22/17 03:30 Dose: 0.63 mg Levalbuterol HCl (Xopenex) 1.25 mg INH RQ6 [facility] Last Admin: 12/27/17 07:09 Dose: 1.25 mg Lidocaine (Lidoderm) 1 ea TD DAILY PRN PRN Reason: Pain, moderate (4-7) Last Admin: 11/29/17 09:38 Dose: 1 ea Methylprednisolone (Medrol) 20 mg PO DAILY [facility] Last Admin: 12/26/17 08:12 Dose: 20 mg Mirtazapine (Remeron) 15 mg PO HS [facility] Last Admin: 12/26/17 21:54 Dose: 15 mg Ondansetron HCl (Zofran Inj) 4 mg IVP Q4 PRN PRN Reason: Nausea/Vomiting Last Admin: 11/13/17 19:35 Dose: 4 mg Pantoprazole Sodium (Protonix Ec Tab) 40 mg PO DAILY [facility] Last Admin: 12/26/17 08:14 Dose: 40 mg Potassium Chloride (K-Dur 20 Meq Er Tab) 20 meq PO DAILY [facility] Last Admin: 12/26/17 08:13 Dose: 20 meq Theophylline (Uniphyl) 400 mg PO DAILY [facility] Last Admin: 12/26/17 08:13 Dose: 400 mg - Labs Labs: 12/27/17 04:55 12/27/17 04:55 PT 10.3 Seconds (9.8-13.1) 12/11/17 20:08 INR 0.9 12/11/17 20:08 APTT 27.5 Seconds (25.6-37.1) 12/11/17 20:08
--- NOTE | 2017-12-26 11:21 | RAD ---
Date of service: 12/26/2017 HISTORY: SOB COMPARISON: Portable chest 12/21/2017. FINDINGS: LUNGS: There is interval clearing of left basilar opacity with no definitive airspace disease identified bilaterally at this time. PLEURA: No significant pleural effusion identified, no pneumothorax apparent. CARDIOVASCULAR: Stable cardiomediastinal silhouette. OSSEOUS STRUCTURES: Surgical clips again noted right axilla with resection of proximal right humerus reiterated as well as left humeral head orthopedic anchor. VISUALIZED UPPER ABDOMEN: Normal. OTHER FINDINGS: None. IMPRESSION: Resolution of prior left basilar pulmonary opacity. No acute infiltrate or pleural effusion bilaterally. No pulmonary vascular congestion.
--- NOTE | 2017-12-26 18:08 | CP.PCM.PN ---
Subjective - Date & Time of Evaluation Date of Evaluation: 12/26/17 Time of Evaluation: 18:10 - Subjective Subjective: I D NOTE PATIENT EXAMINED,CHART REVIEWED CONSULT DICTATED CONTINUE MEROPENEM Objective - Vital Signs/Intake and Output Vital Signs (last 24 hours): Temp Pulse Resp BP Pulse Ox 98 F 96 H 20 119/69 99 12/26/17 15:50 12/26/17 15:50 12/26/17 15:50 12/26/17 15:50 12/26/17 15:50 - Medications Medications: Current Medications Acetaminophen (Tylenol 325mg Tab) 650 mg PO Q6 PRN PRN Reason: Headache Last Admin: 12/24/17 07:02 Dose: 650 mg Acetazolamide (Diamox 250 Mg Tab) 250 mg PO BID [facility] Last Admin: 12/26/17 16:50 Dose: 250 mg Alprazolam (Xanax) 0.25 mg PO Q8 PRN PRN Reason: Anxiety Stop: 12/30/17 22:18 Last Admin: 12/25/17 21:53 Dose: 0.25 mg Aspirin (Aspirin Chewable) 81 mg PO DAILY [facility] Last Admin: 12/26/17 08:13 Dose: 81 mg Atorvastatin Calcium (Lipitor) 40 mg PO HS [facility] Last Admin: 12/25/17 21:53 Dose: 40 mg Dextrose (Dextrose 50% Inj) 0 ml IV STAT PRN; Protocol PRN Reason: Hypoglycemia Protocol Dextrose (Glutose 15) 0 gm PO ONCE PRN; Protocol PRN Reason: Hypoglycemia Protocol Diltiazem HCl (Cardizem Cd) 240 mg PO DAILY [facility] Last Admin: 12/26/17 08:13 Dose: 240 mg Emollient Ointment (Vaseline Oint) 1 pkt TOP BID PRN PRN Reason: Dry skin Last Admin: 12/24/17 17:03 Dose: 1 pkt Furosemide (Lasix) 40 mg PO DAILY [facility] Last Admin: 12/25/17 09:10 Dose: 40 mg Glipizide (Glucotrol) 10 mg PO BIDAC [facility] Last Admin: 12/26/17 16:50 Dose: 10 mg Glucagon (Glucagen Diagnostic Kit) 0 mg IM STAT PRN; Protocol PRN Reason: Hypoglycemia Protocol Guaifenesin (Mucinex La) 600 mg PO Q12 [facility] Last Admin: 12/26/17 08:12 Dose: 600 mg Meropenem 1 gm/ Sodium (Chloride) 100 mls @ 100 mls/hr IVPB Q8@0500,1300,2100 [facility] PRN Reason: Protocol Last Admin: 12/26/17 13:07 Dose: 100 mls/hr Insulin Detemir (Levemir) 10 units SC HS [facility] Insulin Human Regular (Humulin R) 0 units SC ACHS [facility] PRN Reason: Protocol Last Admin: 12/26/17 16:47 Dose: Not Given Ipratropium [place] (Atrovent) 0.5 mg IH RQ6 [facility] Last Admin: 12/26/17 13:04 Dose: 0.5 mg Levalbuterol HCl (Xopenex) 0.63 mg INH RQ4 PRN PRN Reason: Shortness of Breath Last Admin: 12/22/17 03:30 Dose: 0.63 mg Levalbuterol HCl (Xopenex) 1.25 mg INH RQ6 [facility] Last Admin: 12/26/17 13:04 Dose: 1.25 mg Lidocaine (Lidoderm) 1 ea TD DAILY PRN PRN Reason: Pain, moderate (4-7) Last Admin: 11/29/17 09:38 Dose: 1 ea Methylprednisolone (Medrol) 20 mg PO DAILY [facility] Last Admin: 12/26/17 08:12 Dose: 20 mg Mirtazapine (Remeron) 15 mg PO HS [facility] Last Admin: 12/25/17 21:53 Dose: 15 mg Ondansetron HCl (Zofran Inj) 4 mg IVP Q4 PRN PRN Reason: Nausea/Vomiting Last Admin: 11/13/17 19:35 Dose: 4 mg Pantoprazole Sodium (Protonix Ec Tab) 40 mg PO DAILY [facility] Last Admin: 12/26/17 08:14 Dose: 40 mg Potassium Chloride (K-Dur 20 Meq Er Tab) 20 meq PO DAILY [facility] Last Admin: 12/26/17 08:13 Dose: 20 meq Theophylline (Uniphyl) 400 mg PO DAILY [facility] Last Admin: 12/26/17 08:13 Dose: 400 mg - Labs Labs: 12/26/17 04:20 12/26/17 04:20 PT 10.3 Seconds (9.8-13.1) 12/11/17 20:08 INR 0.9 12/11/17 20:08 APTT 27.5 Seconds (25.6-37.1) 12/11/17 20:08
--- NOTE | 2017-12-26 18:39 | CP.PCM.PN ---
Subjective - Date & Time of Evaluation Date of Evaluation: 12/26/17 Time of Evaluation: 10:00 - Subjective Subjective: Patient seen and examined bedside. Chronically ill patient, pale , lying in bed in mild respiratory distress with minimal effort . On 5 L O2 via NC and ventimask at night saturating well 97- 98 % HR ranging 95-104 BP 149/73 K 2.4 WBC 6.6 Hgb 10 Feeling tired today , unable to sleep well at night Sputum cx positive for Klebsiella Pneumonia ESBL +. On contact isolation Objective - Vital Signs/Intake and Output Vital Signs (last 24 hours): Temp Pulse Resp BP Pulse Ox 98 F 96 H 20 119/69 99 12/26/17 15:50 12/26/17 15:50 12/26/17 15:50 12/26/17 15:50 12/26/17 15:50 - Medications Medications: Current Medications Acetaminophen (Tylenol 325mg Tab) 650 mg PO Q6 PRN PRN Reason: Headache Last Admin: 12/24/17 07:02 Dose: 650 mg Acetazolamide (Diamox 250 Mg Tab) 250 mg PO BID [facility] Last Admin: 12/26/17 16:50 Dose: 250 mg Alprazolam (Xanax) 0.25 mg PO Q8 PRN PRN Reason: Anxiety Stop: 12/30/17 22:18 Last Admin: 12/25/17 21:53 Dose: 0.25 mg Aspirin (Aspirin Chewable) 81 mg PO DAILY [facility] Last Admin: 12/26/17 08:13 Dose: 81 mg Atorvastatin Calcium (Lipitor) 40 mg PO HS [facility] Last Admin: 12/25/17 21:53 Dose: 40 mg Dextrose (Dextrose 50% Inj) 0 ml IV STAT PRN; Protocol PRN Reason: Hypoglycemia Protocol Dextrose (Glutose 15) 0 gm PO ONCE PRN; Protocol PRN Reason: Hypoglycemia Protocol Diltiazem HCl (Cardizem Cd) 240 mg PO DAILY [facility] Last Admin: 12/26/17 08:13 Dose: 240 mg Emollient Ointment (Vaseline Oint) 1 pkt TOP BID PRN PRN Reason: Dry skin Last Admin: 12/24/17 17:03 Dose: 1 pkt Furosemide (Lasix) 40 mg PO DAILY [facility] Last Admin: 12/25/17 09:10 Dose: 40 mg Glipizide (Glucotrol) 10 mg PO BIDAC [facility] Last Admin: 12/26/17 16:50 Dose: 10 mg Glucagon (Glucagen Diagnostic Kit) 0 mg IM STAT PRN; Protocol PRN Reason: Hypoglycemia Protocol Guaifenesin (Mucinex La) 600 mg PO Q12 [facility] Last Admin: 12/26/17 08:12 Dose: 600 mg Meropenem 1 gm/ Sodium (Chloride) 100 mls @ 100 mls/hr IVPB Q8@0500,1300,2100 [facility] PRN Reason: Protocol Last Admin: 12/26/17 13:07 Dose: 100 mls/hr Insulin Detemir (Levemir) 10 units SC HS [facility] Insulin Human Regular (Humulin R) 0 units SC ACHS [facility] PRN Reason: Protocol Last Admin: 12/26/17 16:47 Dose: Not Given Ipratropium [place] (Atrovent) 0.5 mg IH RQ6 [facility] Last Admin: 12/26/17 13:04 Dose: 0.5 mg Levalbuterol HCl (Xopenex) 0.63 mg INH RQ4 PRN PRN Reason: Shortness of Breath Last Admin: 12/22/17 03:30 Dose: 0.63 mg Levalbuterol HCl (Xopenex) 1.25 mg INH RQ6 [facility] Last Admin: 12/26/17 13:04 Dose: 1.25 mg Lidocaine (Lidoderm) 1 ea TD DAILY PRN PRN Reason: Pain, moderate (4-7) Last Admin: 11/29/17 09:38 Dose: 1 ea Methylprednisolone (Medrol) 20 mg PO DAILY [facility] Last Admin: 12/26/17 08:12 Dose: 20 mg Mirtazapine (Remeron) 15 mg PO HS [facility] Last Admin: 12/25/17 21:53 Dose: 15 mg Ondansetron HCl (Zofran Inj) 4 mg IVP Q4 PRN PRN Reason: Nausea/Vomiting Last Admin: 11/13/17 19:35 Dose: 4 mg Pantoprazole Sodium (Protonix Ec Tab) 40 mg PO DAILY [facility] Last Admin: 12/26/17 08:14 Dose: 40 mg Potassium Chloride (K-Dur 20 Meq Er Tab) 20 meq PO DAILY [facility] Last Admin: 12/26/17 08:13 Dose: 20 meq Theophylline (Uniphyl) 400 mg PO DAILY [facility] Last Admin: 12/26/17 08:13 Dose: 400 mg - Labs Labs: 12/26/17 04:20 12/26/17 04:20 PT 10.3 Seconds (9.8-13.1) 12/11/17 20:08 INR 0.9 12/11/17 20:08 APTT 27.5 Seconds (25.6-37.1) 12/11/17 20:08 - Constitutional Appears: Chronically Ill, Other (mild respiratory distres with minimal effort ) - Head Exam Head Exam: ATRAUMATIC, NORMOCEPHALIC - Eye Exam Eye Exam: EOMI, PERRL - ENT Exam ENT Exam: Mucous Membranes Moist, Normal Exam - Neck Exam Neck Exam: Normal Inspection - Respiratory Exam Respiratory Exam: Decreased Breath Sounds (bibasilar ), Prolonged Expiratory Phase, Rhonchi (diffuse ). absent: Wheezes - Cardiovascular Exam Cardiovascular Exam: REGULAR RHYTHM, +S1, +S2. absent: JVD - GI/Abdominal Exam GI & Abdominal Exam: Soft, Normal Bowel Sounds. absent: Distended, Guarding, Tenderness, Rebound - Rectal Exam Rectal Exam: Deferred - Extremities Exam Extremities Exam: absent: Calf Tenderness, Pedal Edema - Neurological Exam Neurological Exam: Alert, Awake, CN II-XII Intact, Oriented x3 - Psychiatric Exam Psychiatric exam: Anxious, Flat Affect - Skin Skin Exam: Dry, Pallor, Warm Additional comments: multiple echymotic lesions to upper extremities, lower extremities and abdominal wall Assessment and Plan - Assessment and Plan (Free Text) Assessment: 67 yo female with extensive medical history including COPD, CHF, hypothyroidism , history of breast Cancer s/p mastectomy, chronic RUE lymphedema was brought into the ED because of dyspnea. Patient was then found to be in respiratory failure secondary to COPD and CHF exacerbation. Patient was admitted to ICU where she was on bipap and IV steroids and diuretics. She is now in Telemetry, slowly improving but still with dyspnea at rest while on O2 via NC with minimal effort and with chest congestion unable to expectorate Sputum cx positive for ESBl + Klebsiella Pneumonia 1. Acute on Chronic Hypercapneic and Hypoxemic Respiratory Failure sec to Acute exacerbation of chronic obstructive pulmonary disease (COPD)-- slowly improving saturating 97 % on 5 L O2 via NC . using Venti mask at night off high flow cont Nebulizer tx RTC with Xopenex cont PO Methyprednisolone 20 mg daily cont Theophylline Pulmonary following Sputum cx positive for ESBl Klebsiella Pneumonia. Placed on isolation and started Meropenem IV ID consulted Referred for LTACH transfer 2. Pneumonia, Nosocomial , likely bacterial with chest congestion , cough , unable to expectorate Pulmonary following Sputum cx growing ESBl + klebsiella Pneumonia . Started Meropenem ID consult with Dr. Obrien 3. DM type II with Hyperglycemia secondary to steroids Accucheck with coverage on Levemir to 20 units q hs cont Glipizide - as rec by DR Vu 4. Acute exacerbation of CHF (congestive heart failure) Diastolic dysfunction Diuresing well continue lasix 40 mg daily K 2.4 today. Will replace with KCl runs and PO . Repeat BMP in AM cont Cardizem 240 mg po Daily. 5. C. difficile colitis Resolved. , completed tx with PO vanco Abdomen distention has improved Continue to monitor 6. Hyperthyroidism discussed case with Dr Vu TSH now normal ( 3.29) per Dr Vu d/c Methimazole 7. HTN (hypertension) Continue current management: Diltiazem and Losartan. increased Diltiazem dose 8. Hx of breast cancer Continue current management: Arimidex. 9. Hypokalemia Diuretic induced K 2.4 Replace with KCl IV and PO 10. Anemia of chronic disease H&H stable 11. DVT prophylaxis RLE U/S negative for DVT. d/c Lovenox ( d/c due to nosebleed) decreased ASA to 81 mg daily
[2017-12-26] MEDS ORDERED: Insulin Detemir 100 Units/ml Inj SC SCH (22:00)
[2017-12-27] MEDS: Ipratropium 0.02% Inhal Soln (0.5 mg/2.5 ml) UD IH SCH ×4 (01:00→19:19)
[2017-12-27] MEDS: Levalbuterol 1.25 MG/3 ML Inhal Soln UD INH SCH ×4 (01:00→19:19)
[2017-12-27 05:34] LABS: HEMOGLOBIN 9.2 g/dL (12.0-16.0); MEAN CELL VOLUME 94.5 fl (81.0-99.0); MEAN CORPUSCULAR HEMOGLOBIN 30.7 pg (27.0-31.0); MEAN CORPUSCULAR HGB CONC 32.5 g/dL (33.0-37.0); RED CELL DISTRIBUTION WIDTH 24.1 % (11.5-14.5); WHITE BLOOD COUNT 4.9 K/uL (4.8-10.8)
[2017-12-27 06:02] LABS: BLOOD UREA NITROGEN 23 mg/dl (7-17); CALCIUM 9.2 mg/dL (8.4-10.2); GFR NON-AFRICAN AMERICAN > 60
[2017-12-27] MEDS: Meropenem 1 GM in Sodium Chloride 0.9% 100 ML IVPB SCH ×3 (06:10→21:50)
--- NOTE | 2017-12-27 08:36 | CON ---
Copied To: Tyrone Obrien MD Attending MD: Tyrone Obrien MD DATE: 12/26/2017 INFECTIOUS DISEASE CONSULT HISTORY OF PRESENT ILLNESS: The patient is a 67-year-old female who has been in the hospital for approximately seven weeks. She is lying in bed, and states that she is fatigued with decreased appetite. There is no shortness of breath. She had an SWAGE TENDER code yesterday because of chest pain. There was no change in the EKG. PHYSICAL EXAMINATION: VITAL SIGNS: The patient has heart rate of 94, blood pressure 102/60, temp 97.5. LABORATORY DATA: CBC shows WBC of 6.6, hemoglobin 10.2, hematocrit 31, platelets are 246. Serology previously in May has a positive C. difficile. GFR is greater than 60. Chest x-ray has no acute infiltrate. ASSESSMENT AND PLAN: What is significant in which the consult was obviously called is she has a sputum culture with Klebsiella pneumoniae which is multi-drug resistant and is Extended-Spectrum Beta-Lactamase positive. She has been placed on meropenem by the hospitalist, . I agree with the present therapy and would continue this therapy. We will do followup cultures towards the end of the week. Tyrone Obrien MD
[2017-12-27] MEDS: guaiFENesin 600 mg ER Tab PO SCH ×2 (08:49→21:51)
[2017-12-27] MEDS: diltiaZEM 240 mg/24 Hours CD Cap PO SCH (08:50)
[2017-12-27] MEDS: Pantoprazole 40 mg EC Tab PO SCH (08:50)
--- NOTE | 2017-12-27 08:50 | PN ---
Copied To: Polly Vu MD Attending MD: Polly Vu MD DATE: 12/26/2017 ENDO FOLLOWUP NOTE LOCATION: In room 411. SUBJECTIVE: The patient is a 67-year-old female with recent uncontrolled type 2 insulin-requiring diabetes, now being followed closely for metabolic management. Her glycemic levels are fluctuating, but much improved at this time and the latest glucose levels ranged from 94 to 110 mg/dL. LABORATORY DATA: Her chemistries today showed a BUN of 24, sodium 141, potassium 2.4, chloride 103, CO2 of 29, glucose 73, and creatinine 0.5. ASSESSMENT AND PLAN: So this time, we will lower the Levemir to 10 units subcutaneously at bedtime daily to start tonight. We will continue the low dose correction scale using regular insulin as given. We will obtain serial chemistries and supplement accordingly as needed. We will follow. Polly Vu MD
[2017-12-27] MEDS: THEOPHYLLINE 400 MG T24(UNIPHYL) PO SCH (08:52)
[2017-12-27] MEDS: Insulin Regular 100 units/ml SC SCH ×4 (08:53→21:51)
[2017-12-27] MEDS: Potassium Chloride 20 mEq ER Tab PO SCH (08:59)
--- NOTE | 2017-12-27 11:26 | CP.PCM.PN ---
Subjective - Date & Time of Evaluation Date of Evaluation: 12/27/17 Time of Evaluation: 08:50 - Subjective Subjective: -Patient seen and examined this AM. She had no complaints overnight. -Patient was on venti mask with 02 sat of 97%. Patient switched to 4 L of NC with 02 sat of 96%. Temp- 97.9F, P-102, RR-18, BP- 110/53 - Rhonchi & rales noted with diminished breath sounds, unchanged from yesterday. -Labs this AM were within normal limits. Potassium was 3.8. -Will continue IV meropenem as well as contact isolation for sputum culture which was + for klebsiella. -Will continue to monitor 02 sat while on NC, and see whether there is a need for venturi mask. -Possible discharge tomorrow to subacute rehab. Objective - Vital Signs/Intake and Output Vital Signs (last 24 hours): Temp Pulse Resp BP Pulse Ox 97.6 F 97 H 18 116/67 100 12/27/17 07:55 12/27/17 08:50 12/27/17 07:55 12/27/17 08:50 12/27/17 07:55 Intake and Output: 12/27/17 12/27/17 06:59 18:59 Intake Total 120 Balance 120 - Medications Medications: Current Medications Acetaminophen (Tylenol 325mg Tab) 650 mg PO Q6 PRN PRN Reason: Headache Last Admin: 12/24/17 07:02 Dose: 650 mg Acetazolamide (Diamox 250 Mg Tab) 250 mg PO BID [facility] Last Admin: 12/27/17 08:58 Dose: 250 mg Alprazolam (Xanax) 0.25 mg PO Q8 PRN PRN Reason: Anxiety Stop: 12/30/17 22:18 Last Admin: 12/26/17 21:53 Dose: 0.25 mg Aspirin (Aspirin Chewable) 81 mg PO DAILY [facility] Last Admin: 12/27/17 08:50 Dose: 81 mg Atorvastatin Calcium (Lipitor) 40 mg PO HS [facility] Last Admin: 12/26/17 21:53 Dose: 40 mg Dextrose (Dextrose 50% Inj) 0 ml IV STAT PRN; Protocol PRN Reason: Hypoglycemia Protocol Dextrose (Glutose 15) 0 gm PO ONCE PRN; Protocol PRN Reason: Hypoglycemia Protocol Diltiazem HCl (Cardizem Cd) 240 mg PO DAILY [facility] Last Admin: 12/27/17 08:50 Dose: 240 mg Emollient Ointment (Vaseline Oint) 1 pkt TOP BID PRN PRN Reason: Dry skin Last Admin: 12/24/17 17:03 Dose: 1 pkt Furosemide (Lasix) 40 mg PO DAILY [facility] Last Admin: 12/25/17 09:10 Dose: 40 mg Glipizide (Glucotrol) 10 mg PO BIDAC [facility] Last Admin: 12/27/17 08:53 Dose: 10 mg Glucagon (Glucagen Diagnostic Kit) 0 mg IM STAT PRN; Protocol PRN Reason: Hypoglycemia Protocol Guaifenesin (Mucinex La) 600 mg PO Q12 [facility] Last Admin: 12/27/17 08:49 Dose: 600 mg Meropenem 1 gm/ Sodium (Chloride) 100 mls @ 100 mls/hr IVPB Q8@0500,1300,2100 [facility] PRN Reason: Protocol Last Admin: 12/27/17 06:10 Dose: 100 mls/hr Insulin Human Regular (Humulin R) 0 units SC ACHS [facility] PRN Reason: Protocol Last Admin: 12/27/17 08:53 Dose: Not Given Ipratropium [place] (Atrovent) 0.5 mg IH RQ6 [facility] Last Admin: 12/27/17 07:09 Dose: 0.5 mg Levalbuterol HCl (Xopenex) 0.63 mg INH RQ4 PRN PRN Reason: Shortness of Breath Last Admin: 12/22/17 03:30 Dose: 0.63 mg Levalbuterol HCl (Xopenex) 1.25 mg INH RQ6 [facility] Last Admin: 12/27/17 07:09 Dose: 1.25 mg Lidocaine (Lidoderm) 1 ea TD DAILY PRN PRN Reason: Pain, moderate (4-7) Last Admin: 11/29/17 09:38 Dose: 1 ea Methylprednisolone (Medrol) 20 mg PO DAILY [facility] Last Admin: 12/27/17 08:51 Dose: 20 mg Mirtazapine (Remeron) 15 mg PO HS [facility] Last Admin: 12/26/17 21:54 Dose: 15 mg Ondansetron HCl (Zofran Inj) 4 mg IVP Q4 PRN PRN Reason: Nausea/Vomiting Last Admin: 11/13/17 19:35 Dose: 4 mg Pantoprazole Sodium (Protonix Ec Tab) 40 mg PO DAILY [facility] Last Admin: 12/27/17 08:50 Dose: 40 mg Potassium Chloride (K-Dur 20 Meq Er Tab) 20 meq PO DAILY [facility] Last Admin: 12/27/17 08:59 Dose: 20 meq Theophylline (Uniphyl) 400 mg PO DAILY [facility] Last Admin: 12/27/17 08:52 Dose: 400 mg - Labs Labs: 12/27/17 04:55 12/27/17 04:55 PT 10.3 Seconds (9.8-13.1) 12/11/17 20:08 INR 0.9 12/11/17 20:08 APTT 27.5 Seconds (25.6-37.1) 12/11/17 20:08
[2017-12-27] MEDS: Petrolatum UD PAK TOP PRN (14:16)
--- NOTE | 2017-12-27 15:26 | PN ---
Copied To: Polly Vu MD Attending MD: Polly Vu MD DATE: 12/27/2017 ENDO FOLLOWUP NOTE LOCATION: In room 411. SUBJECTIVE: This is a 67-year-old female with recent admission for acute exacerbation of COPD with supervening congestive heart failure and is now being followed closely for metabolic management because of recent hyperglycemic accelerations as noted thereof. Her glycemic levels; however, overnight were on the low side of normal, ranging from 77 to 111 mg per dL. LABORATORY DATA: Her chemistry showed a BUN of 23, sodium 141, potassium 3.8, chloride 106, CO2 of 29, glucose 100, and creatinine 0.5. ASSESSMENT AND PLAN: So at this time, we will actually discontinue now her basal insulin with Levemir given at a lower dose of 10 units at bedtime daily as ordered. We will continue only her oral hypoglycemic therapy as given with glipizide given as 10 mg b.i.d. with meals as ordered. We will obtain serial chemistries and supplement accordingly as needed. We will follow. Polly Vu MD
--- NOTE | 2017-12-27 19:03 | CP.PCM.PN ---
Subjective - Date & Time of Evaluation Date of Evaluation: 12/27/17 Time of Evaluation: 11:30 - Subjective Subjective: Patient seen and examined bedside. Chronically ill female patient, lying in bed in NAD, feeling a little better today, pale , on 4 L O2 via NC saturating well 97- 98 % No acute issues overnight Anasarca has improved Objective - Vital Signs/Intake and Output Vital Signs (last 24 hours): Temp Pulse Resp BP Pulse Ox 98.2 F 102 H 16 111/62 99 12/27/17 16:05 12/27/17 16:05 12/27/17 16:05 12/27/17 16:05 12/27/17 16:05 - Medications Medications: Current Medications Acetaminophen (Tylenol 325mg Tab) 650 mg PO Q6 PRN PRN Reason: Headache Last Admin: 12/24/17 07:02 Dose: 650 mg Acetazolamide (Diamox 250 Mg Tab) 250 mg PO BID [facility] Last Admin: 12/27/17 17:51 Dose: 250 mg Alprazolam (Xanax) 0.25 mg PO Q8 PRN PRN Reason: Anxiety Stop: 12/30/17 22:18 Last Admin: 12/26/17 21:53 Dose: 0.25 mg Aspirin (Aspirin Chewable) 81 mg PO DAILY [facility] Last Admin: 12/27/17 08:50 Dose: 81 mg Atorvastatin Calcium (Lipitor) 40 mg PO HS [facility] Last Admin: 12/26/17 21:53 Dose: 40 mg Dextrose (Dextrose 50% Inj) 0 ml IV STAT PRN; Protocol PRN Reason: Hypoglycemia Protocol Dextrose (Glutose 15) 0 gm PO ONCE PRN; Protocol PRN Reason: Hypoglycemia Protocol Diltiazem HCl (Cardizem Cd) 240 mg PO DAILY [facility] Last Admin: 12/27/17 08:50 Dose: 240 mg Emollient Ointment (Vaseline Oint) 1 pkt TOP BID PRN PRN Reason: Dry skin Last Admin: 12/27/17 14:16 Dose: 1 pkt Furosemide (Lasix) 40 mg PO DAILY [facility] Last Admin: 12/25/17 09:10 Dose: 40 mg Glipizide (Glucotrol) 10 mg PO BIDAC [facility] Last Admin: 12/27/17 17:51 Dose: 10 mg Glucagon (Glucagen Diagnostic Kit) 0 mg IM STAT PRN; Protocol PRN Reason: Hypoglycemia Protocol Guaifenesin (Mucinex La) 600 mg PO Q12 [facility] Last Admin: 12/27/17 08:49 Dose: 600 mg Meropenem 1 gm/ Sodium (Chloride) 100 mls @ 100 mls/hr IVPB Q8@0500,1300,2100 [facility] PRN Reason: Protocol Last Admin: 12/27/17 14:16 Dose: 100 mls/hr Insulin Human Regular (Humulin R) 0 units SC ACHS [facility] PRN Reason: Protocol Last Admin: 12/27/17 17:13 Dose: Not Given Ipratropium [place] (Atrovent) 0.5 mg IH RQ6 [facility] Last Admin: 12/27/17 13:16 Dose: 0.5 mg Levalbuterol HCl (Xopenex) 0.63 mg INH RQ4 PRN PRN Reason: Shortness of Breath Last Admin: 12/22/17 03:30 Dose: 0.63 mg Levalbuterol HCl (Xopenex) 1.25 mg INH RQ6 [facility] Last Admin: 12/27/17 13:16 Dose: 1.25 mg Lidocaine (Lidoderm) 1 ea TD DAILY PRN PRN Reason: Pain, moderate (4-7) Last Admin: 11/29/17 09:38 Dose: 1 ea Methylprednisolone (Medrol) 20 mg PO DAILY [facility] Last Admin: 12/27/17 08:51 Dose: 20 mg Mirtazapine (Remeron) 15 mg PO HS [facility] Last Admin: 12/26/17 21:54 Dose: 15 mg Ondansetron HCl (Zofran Inj) 4 mg IVP Q4 PRN PRN Reason: Nausea/Vomiting Last Admin: 11/13/17 19:35 Dose: 4 mg Pantoprazole Sodium (Protonix Ec Tab) 40 mg PO DAILY [facility] Last Admin: 12/27/17 08:50 Dose: 40 mg Potassium Chloride (K-Dur 20 Meq Er Tab) 20 meq PO DAILY [facility] Last Admin: 12/27/17 08:59 Dose: 20 meq Theophylline (Uniphyl) 400 mg PO DAILY [facility] Last Admin: 12/27/17 08:52 Dose: 400 mg - Labs Labs: 12/27/17 04:55 12/27/17 04:55 PT 10.3 Seconds (9.8-13.1) 12/11/17 20:08 INR 0.9 12/11/17 20:08 APTT 27.5 Seconds (25.6-37.1) 12/11/17 20:08 - Constitutional Appears: Older Than Stated Age, Chronically Ill, Other (mild respiratory distress ) - Eye Exam Eye Exam: EOMI, PERRL Pupil Exam: NORMAL ACCOMODATION - ENT Exam ENT Exam: Mucous Membranes Moist, Normal Exam - Neck Exam Neck Exam: Full ROM, Normal Inspection - Respiratory Exam Respiratory Exam: Prolonged Expiratory Phase, Rhonchi. absent: Wheezes Additional comments: bilateral mastectomy - Cardiovascular Exam Cardiovascular Exam: Tachycardia, REGULAR RHYTHM, RRR, +S1, +S2. absent: JVD - GI/Abdominal Exam GI & Abdominal Exam: Soft, Normal Bowel Sounds. absent: Distended, Guarding, Tenderness, Rebound - Rectal Exam Rectal Exam: Deferred - Extremities Exam Extremities Exam: absent: Pedal Edema Additional comments: RUE lymphedema - Neurological Exam Neurological Exam: Alert, Awake, CN II-XII Intact, Oriented x3 - Psychiatric Exam Psychiatric exam: Anxious - Skin Skin Exam: Dry, Pallor Additional comments: multiple echymotic lesions to lower extremities, upper extremities and abdominal wall Assessment and Plan - Assessment and Plan (Free Text) Assessment: 67 yo female with extensive medical history including COPD, CHF, hypothyroidism , history of breast Cancer s/p mastectomy, chronic RUE lymphedema was brought into the ED because of dyspnea. Patient was then found to be in respiratory failure secondary to COPD and CHF exacerbation. Patient was admitted to ICU where she was on bipap and IV steroids and diuretics. She is now in Telemetry, slowly improving but still with dyspnea at rest while on O2 via NC with minimal effort and with chest congestion unable to expectorate Sputum cx positive for ESBl + Klebsiella Pneumonia 1. Acute on Chronic Hypercapneic and Hypoxemic Respiratory Failure sec to Acute exacerbation of chronic obstructive pulmonary disease (COPD)-- slowly improving saturating 97 % on 5 L O2 via NC . using Venti mask at night. Will try not to use Venturi mask and see if patient can tolerate off high flow cont Nebulizer tx RTC with Xopenex cont PO Methyprednisolone 20 mg daily cont Theophylline Pulmonary following Sputum cx positive for ESBl Klebsiella Pneumonia. Placed on isolation and started Meropenem IV ID consulted possible d/c to [facility] ( [facility]) if patient does not need venti mask use 2. Pneumonia, Nosocomial , likely bacterial-due to ESBL Klebsiella Pneumonia with chest congestion , cough , unable to expectorate Pulmonary following Sputum cx growing ESBl + klebsiella Pneumonia . Started Meropenem ID consult with Dr. Obrien 3. DM type II with Hyperglycemia secondary to steroids Accucheck with coverage on Levemir to 20 units q hs cont Glipizide - as rec by DR Vu 4. Acute exacerbation of CHF (congestive heart failure) Diastolic dysfunction Diuresing well continue lasix 40 mg daily K 3.8 today. Continue Kdur PO cont Cardizem 240 mg po Daily. 5. C. difficile colitis Resolved. , completed tx with PO vanco Abdomen distention has improved Continue to monitor 6. Hyperthyroidism discussed case with Dr Vu TSH now normal ( 3.29) per Dr Vu d/c Methimazole 7. HTN (hypertension) Continue current management: Diltiazem and Losartan. increased Diltiazem dose 8. Hx of breast cancer Continue current management: Arimidex. 9. Hypokalemia Diuretic induced K 3.8 today Replace with Kdur PO 10. Anemia of chronic disease H&H stable 11. DVT prophylaxis RLE U/S negative for DVT. d/c Lovenox ( d/c due to nosebleed) decreased ASA to 81 mg daily
[2017-12-28] MEDS: Ipratropium 0.02% Inhal Soln (0.5 mg/2.5 ml) UD IH SCH ×4 (01:11→19:37)
[2017-12-28] MEDS: Levalbuterol 1.25 MG/3 ML Inhal Soln UD INH SCH ×2 (01:11→19:37)
[2017-12-28] MEDS: Meropenem 1 GM in Sodium Chloride 0.9% 100 ML IVPB SCH ×3 (05:20→21:34)
[2017-12-28 05:45] LABS: HEMOGLOBIN 8.8 g/dL (12.0-16.0); MEAN CELL VOLUME 94.3 fl (81.0-99.0); MEAN CORPUSCULAR HEMOGLOBIN 30.6 pg (27.0-31.0); MEAN CORPUSCULAR HGB CONC 32.4 g/dL (33.0-37.0); RBC 2.88 Mil/uL (3.80-5.20); WHITE BLOOD COUNT 5.6 K/uL (4.8-10.8)
[2017-12-28 06:43] LABS: ALB/GLOB RATIO 1.2 (1.0-2.1); ALT/SGPT 40 U/L (9-52); AST/SGOT 20 U/L (14-36); BLOOD UREA NITROGEN 17 mg/dl (7-17); CALCIUM 8.7 mg/dL (8.4-10.2); GFR NON-AFRICAN AMERICAN > 60
[2017-12-28] MEDS: diltiaZEM 240 mg/24 Hours CD Cap PO SCH (10:02)
[2017-12-28] MEDS: Insulin Regular 100 units/ml SC SCH ×4 (10:11→21:36)
[2017-12-28] MEDS: Potassium Chloride 20 mEq ER Tab PO SCH (10:11)
[2017-12-28] MEDS: guaiFENesin 600 mg ER Tab PO SCH ×2 (10:12→21:35)
[2017-12-28] MEDS: Pantoprazole 40 mg EC Tab PO SCH (10:13)
[2017-12-28] MEDS: THEOPHYLLINE 400 MG T24(UNIPHYL) PO SCH (10:20)
--- NOTE | 2017-12-28 11:23 | CP.PCM.PN ---
Subjective - Date & Time of Evaluation Date of Evaluation: 12/28/17 Time of Evaluation: 08:59 - Subjective Subjective: The patient was seen and examined this morning during morning rounds. -She slept well overnight with no need for the venturi mask. -She was laying upright in bed, breathing comfortably in no acute distress. -Vitals this AM were within limits of her usual baseline: Temp: 98.1F, P-102H, 132/67, RR-18, O2sat 97% on 3L of NC -Scattered rhonchi auscultated B/L, no wheeze. -Possible discharge today to subacute rehab. Objective - Vital Signs/Intake and Output Vital Signs (last 24 hours): Temp Pulse Resp BP Pulse Ox 97.9 F 108 H 18 115/65 95 12/28/17 08:00 12/28/17 10:02 12/28/17 08:00 12/28/17 10:02 12/28/17 08:00 - Medications Medications: Current Medications Acetaminophen (Tylenol 325mg Tab) 650 mg PO Q6 PRN PRN Reason: Headache Last Admin: 12/24/17 07:02 Dose: 650 mg Acetazolamide (Diamox 250 Mg Tab) 250 mg PO BID [facility] Last Admin: 12/28/17 10:10 Dose: 250 mg Alprazolam (Xanax) 0.25 mg PO Q8 PRN PRN Reason: Anxiety Stop: 12/30/17 22:18 Last Admin: 12/27/17 21:49 Dose: 0.25 mg Anastrozole (Arimidex 1 Mg Tab) 1 mg PO DAILY [facility] Last Admin: 12/28/17 10:02 Dose: 1 mg Aspirin (Aspirin Chewable) 81 mg PO DAILY [facility] Last Admin: 12/28/17 10:02 Dose: 81 mg Atorvastatin Calcium (Lipitor) 40 mg PO HS [facility] Last Admin: 12/27/17 21:50 Dose: 40 mg Dextrose (Dextrose 50% Inj) 0 ml IV STAT PRN; Protocol PRN Reason: Hypoglycemia Protocol Dextrose (Glutose 15) 0 gm PO ONCE PRN; Protocol PRN Reason: Hypoglycemia Protocol Diltiazem HCl (Cardizem Cd) 240 mg PO DAILY [facility] Last Admin: 12/28/17 10:02 Dose: 240 mg Emollient Ointment (Vaseline Oint) 1 pkt TOP BID PRN PRN Reason: Dry skin Last Admin: 12/27/17 14:16 Dose: 1 pkt Furosemide (Lasix) 40 mg PO DAILY [facility] Last Admin: 12/25/17 09:10 Dose: 40 mg Glipizide (Glucotrol) 10 mg PO BIDAC [facility] Last Admin: 12/28/17 10:10 Dose: 10 mg Glucagon (Glucagen Diagnostic Kit) 0 mg IM STAT PRN; Protocol PRN Reason: Hypoglycemia Protocol Guaifenesin (Mucinex [place]) 600 mg PO Q12 [facility] Last Admin: 12/28/17 10:12 Dose: 600 mg Meropenem 1 gm/ Sodium (Chloride) 100 mls @ 100 mls/hr IVPB Q8@0500,1300,2100 [facility] PRN Reason: Protocol Last Admin: 12/28/17 05:20 Dose: 100 mls/hr Insulin Human Regular (Humulin R) 0 units SC ACHS [facility] PRN Reason: Protocol Last Admin: 12/28/17 10:11 Dose: Not Given Ipratropium [place] (Atrovent) 0.5 mg IH RQ6 [facility] Last Admin: 12/28/17 08:03 Dose: 0.5 mg Levalbuterol HCl (Xopenex) 0.63 mg INH RQ4 PRN PRN Reason: Shortness of Breath Last Admin: 12/22/17 03:30 Dose: 0.63 mg Levalbuterol HCl (Xopenex) 1.25 mg INH RQ6 [facility] Last Admin: 12/28/17 01:11 Dose: 1.25 mg Lidocaine (Lidoderm) 1 ea TD DAILY PRN PRN Reason: Pain, moderate (4-7) Last Admin: 11/29/17 09:38 Dose: 1 ea Methylprednisolone (Medrol) 20 mg PO DAILY [facility] Last Admin: 12/28/17 10:11 Dose: 20 mg Mirtazapine (Remeron) 15 mg PO HS [facility] Last Admin: 12/27/17 21:51 Dose: 15 mg Ondansetron HCl (Zofran Inj) 4 mg IVP Q4 PRN PRN Reason: Nausea/Vomiting Last Admin: 11/13/17 19:35 Dose: 4 mg Pantoprazole Sodium (Protonix Ec Tab) 40 mg PO DAILY [facility] Last Admin: 12/28/17 10:13 Dose: 40 mg Potassium Chloride (K-Dur 20 Meq Er Tab) 20 meq PO DAILY [facility] Last Admin: 12/28/17 10:11 Dose: 20 meq Theophylline (Uniphyl) 400 mg PO DAILY [facility] Last Admin: 12/28/17 10:20 Dose: 400 mg - Labs Labs: 12/28/17 04:20 12/28/17 04:20 PT 10.3 Seconds (9.8-13.1) 12/11/17 20:08 INR 0.9 12/11/17 20:08 APTT 27.5 Seconds (25.6-37.1) 12/11/17 20:08
--- NOTE | 2017-12-28 15:01 | CP.PCM.DIS ---
Provider - Provider Date of Admission: 11/10/17 19:40 Attending physician: Joselo Noel MD Primary care physician: Dr. Benz- PMD Consults: Dr. Benz- pulmonary Dr. Obrien- ID Dr. Garsia- GI Time Spent in preparation of Discharge (in minutes): 25 Hospital Course - Lab Results Lab Results: Micro Results 12/23/17 17:05 Sputum Induced Gram Stain - Final 12/23/17 17:05 Sputum Induced Sputum Culture - Final Klebsiella Pneumoniae Ssp Pneu 11/20/17 19:34 Nose MRSA Culture (Admit) - Final MRSA NOT DETECTED 11/10/17 15:00 Blood Blood Culture - Final NO GROWTH AFTER 5 DAYS 11/10/17 15:00 Blood Gram Stain - Final TEST NOT PERFORMED 11/12/17 16:24 Stool Ova and Parasite Concentrate Exam - Final 11/12/17 16:24 Stool Stool Culture - Final NO SALMONELLA, SHIGELLA OR CAMPYLOBACTER ISOLATED. 11/10/17 00:40 Naris MRSA Culture (Admit) - Final MRSA NOT DETECTED Most Recent Lab Values WBC 5.6 K/uL (4.8-10.8) 12/28/17 04:20 RBC 2.88 Mil/uL (3.80-5.20) L 12/28/17 04:20 Hgb 8.8 g/dL (12.0-16.0) L 12/28/17 04:20 Hct 27.1 % (34.0-47.0) L 12/28/17 04:20 MCV 94.3 fl (81.0-99.0) 12/28/17 04:20 MCH 30.6 pg (27.0-31.0) 12/28/17 04:20 MCHC 32.4 g/dL (33.0-37.0) L 12/28/17 04:20 RDW 24.0 % (11.5-14.5) H 12/28/17 04:20 Plt Count 274 K/uL (130-400) 12/28/17 04:20 MPV 7.2 fl (7.2-11.7) 12/20/17 04:20 Neut % (Auto) 85.6 % (50.0-75.0) H 12/20/17 04:20 Lymph % (Auto) 8.0 % (20.0-40.0) L 12/20/17 04:20 [place] % (Auto) 6.1 % (0.0-10.0) 12/20/17 04:20 Eos % (Auto) 0.1 % (0.0-4.0) 12/20/17 04:20 Baso % (Auto) 0.2 % (0.0-2.0) 12/20/17 04:20 Neut # (Auto) 3.7 K/uL (1.8-7.0) 12/20/17 04:20 Lymph # (Auto) 0.3 K/uL (1.0-4.3) L 12/20/17 04:20 [place] # (Auto) 0.3 K/uL (0.0-0.8) 12/20/17 04:20 Eos # (Auto) 0.0 K/uL (0.0-0.7) 12/20/17 04:20 Baso # (Auto) 0.0 K/uL (0.0-0.2) 12/20/17 04:20 Neutrophils % (Manual) 86 % (42-75) H 12/20/17 04:20 Band Neutrophils % 1 % (0-2) 11/27/17 05:52 Lymphocytes % (Manual) 10 % (20-50) L 12/20/17 04:20 Reactive Lymphs % 2 % (0-0) H 11/24/17 04:45 Monocytes % (Manual) 4 % (0-10) 12/20/17 04:20 Myelocytes % 1 % (0-0) H 11/24/17 04:45 Toxic Granulation Present 12/20/17 04:20 Platelet Estimate Normal (NORMAL) 12/20/17 04:20 Large Platelets Present 11/27/17 05:52 Giant Platelets Present 11/27/17 05:52 Hypochromasia (manual) Moderate 12/20/17 04:20 Anisocytosis (manual) Moderate 12/20/17 04:20 Tear Drop Cells Slight 12/20/17 04:20 Ovalocytes Slight 12/20/17 04:20 Schistocytes Slight 12/20/17 04:20 PT 10.3 Seconds (9.8-13.1) 12/11/17 20:08 INR 0.9 12/11/17 20:08 APTT 27.5 Seconds (25.6-37.1) 12/11/17 20:08 pCO2 50 mm/Hg (35-45) H 12/19/17 12:17 pO2 78 mm/Hg (80-100) L 12/19/17 12:17 HCO3 33.8 mmol/L (21-28) H 12/19/17 12:17 ABG pH 7.47 (7.35-7.45) H 12/19/17 12:17 ABG Total CO2 37.9 mmol/L (22-28) H 12/19/17 12:17 ABG O2 Saturation 98.3 % (95-98) H 12/19/17 12:17 ABG O2 Content 12.1 ML/dL (15-23) L 12/19/17 12:17 ABG Base Excess 11.4 mmol/L (-2.0-3.0) H 12/19/17 12:17 ABG Hemoglobin 9.0 g/dL (11.7-17.4) L 12/19/17 12:17 ABG Carboxyhemoglobin 2.1 % (0.5-1.5) H 12/19/17 12:17 POC ABG HHb (Measured) 1.6 % (0.0-5.0) 12/19/17 12:17 ABG Methemoglobin 1.9 % (0.0-3.0) 12/19/17 12:17 ABG O2 Capacity 12.3 mL/dL (16-24) L 12/19/17 12:17 Tawanda Test Yes 12/19/17 12:17 ABG Potassium 3.0 mmol/L (3.6-5.2) L 11/10/17 15:38 A-a O2 Difference 216.0 mm/Hg 12/19/17 12:17 Hgb O2 Saturation 94.4 % (95.0-98.0) L 12/19/17 12:17 Sodium 138.0 mmol/L (132-148) 11/10/17 15:38 Chloride 105.0 mmol/L (98-107) 11/10/17 15:38 Glucose 91 mg/dL (65-105) 11/10/17 15:38 Lactate 0.8 mmol/L (0.7-2.1) 11/10/17 15:38 Liter Flow 30 11/17/17 10:10 Vent Mode High flow lpm 11/17/17 10:10 FiO2 50.0 % 12/19/17 12:17 Inspiratory BiPAP 10 11/10/17 15:38 Expiratory BiPAP 5 11/10/17 15:38 Blood Gas Comments 50% venti mask 12/19/17 12:17 Crit Value Called To Dr lisa garcia 11/17/17 10:10 Crit Value Called By Salvador 11/17/17 10:10 Crit Value Read Back N 12/19/17 12:17 Blood Gas Notified Time 1036 11/17/17 10:10 Sodium 142 mmol/l (132-148) 12/28/17 04:20 Potassium 3.5 MMOL/L (3.6-5.0) L 12/28/17 04:20 Chloride 109 mmol/L (98-107) H 12/28/17 04:20 Carbon Dioxide 27 mmol/L (22-30) 12/28/17 04:20 Anion Gap 10 (10-20) 12/28/17 04:20 BUN 17 mg/dl (7-17) 12/28/17 04:20 Creatinine 0.5 mg/dl (0.7-1.2) L 12/28/17 04:20 Est GFR ( Amer) > 60 12/28/17 04:20 Est GFR (Non-Af Amer) > 60 12/28/17 04:20 POC Glucose (mg/dL) 112 mg/dL (65-110) H 12/28/17 11:03 Random Glucose 93 mg/dL (65-105) 12/28/17 04:20 Calcium 8.7 mg/dL (8.4-10.2) 12/28/17 04:20 Phosphorus 3.3 mg/dl (2.5-4.5) 12/09/17 05:23 Magnesium 2.1 MG/DL (1.6-2.3) 12/20/17 04:20 Iron 55 ug/dL (37-170) 12/18/17 09:58 TIBC 314 ug/dL (250-450) 12/18/17 09:58 % Saturation 18 % (20-55) L 12/18/17 09:58 Ferritin 38.9 ng/Ml (11.1-264.0) 12/18/17 09:58 Total Bilirubin 0.3 mg/dl (0.2-1.3) 12/28/17 04:20 AST 20 U/L (14-36) 12/28/17 04:20 ALT 40 U/L (9-52) 12/28/17 04:20 Alkaline Phosphatase 71 U/L (38-126) 12/28/17 04:20 Troponin I 0.0490 ng/mL (0.00-0.120) 12/08/17 15:16 NT-Pro-B Natriuret Pep 3990 pg/ml (0-900) H 11/12/17 04:15 Total Protein 5.5 G/DL (6.3-8.2) L 12/28/17 04:20 Albumin 3.0 g/dL (3.5-5.0) L 12/28/17 04:20 Globulin 2.4 gm/dL (2.2-3.9) 12/28/17 04:20 Albumin/Globulin Ratio 1.2 (1.0-2.1) 12/28/17 04:20 Iswml-4-[id number] 110 mg/dL (83-199) 11/21/17 10:01 Vitamin B12 349 pg/mL (239-931) 12/18/17 09:58 Procalcitonin < 0.05 NG/ML (0.19-0.49) L 11/27/17 11:07 Free T4 0.48 ng/dL (0.78-2.19) L 12/22/17 05:20 Thyroxine (T4) 3.79 ug/dl (5.5-11.0) L 12/22/17 05:20 Total T3 0.910 nmol/L (1.49-2.60) L 11/12/17 04:15 TSH 3rd Generation 3.12 mIU/ML (0.46-4.68) 12/22/17 05:20 Thyroid Stim Immunoglob <89 % baseline (<140) 11/25/17 04:20 Arterial Blood Potassium 3.0 mmol/L (3.6-5.2) L 11/10/17 15:38 Urine Color Straw (YELLOW) 11/12/17 14:48 Urine Clarity Clear (Clear) 11/12/17 14:48 Urine pH 7.0 (5.0-8.0) 11/12/17 14:48 Ur Specific [place] 1.009 (1.003-1.030) 11/12/17 14:48 Urine Protein Negative mg/dL (NEGATIVE) 11/12/17 14:48 Urine Glucose (UA) Neg mg/dL (Normal) 11/12/17 14:48 Urine Ketones Negative mg/dL (NEGATIVE) 11/12/17 14:48 Urine Blood Negative (NEGATIVE) 11/12/17 14:48 Urine Nitrate Negative (NEGATIVE) 11/12/17 14:48 Urine Bilirubin Negative (NEGATIVE) 11/12/17 14:48 Urine Urobilinogen 0.2-1.0 mg/dL (0.2-1.0) 11/12/17 14:48 Ur Leukocyte Esterase Trace Ben/uL (Negative) 11/12/17 14:48 Urine RBC (Auto) 2 /hpf (0-3) 11/12/17 14:48 Urine Microscopic WBC 4 /hpf (0-5) 11/12/17 14:48 Ur Squamous Epith Cells 1 /hpf (0-5) 11/12/17 14:48 Urine Bacteria Few (<OCC) H 11/12/17 14:48 Hyaline Casts 3-5 /hpf (0-2) H 11/12/17 14:48 Stool Leukocytes, Qual Negative (NEGATIVE) 11/12/17 21:24 Vancomycin Trough 7.4 ug/mL (5.0-10.0) 12/23/17 18:10 Theophylline 11 ug/ml (10-20) 12/23/17 18:10 C. difficile Ag & Toxin Negative (NEGATIVE) 11/16/17 13:50 - Hospital Course Hospital Course: 67 yo female with extensive medical history including COPD, CHF, hypothyroidism , history of breast Cancer s/p mastectomy, chronic RUE lymphedema was brought into the ED because of dyspnea. Patient was then found to be in respiratory failure secondary to COPD and CHF exacerbation. Patient was admitted to ICU where she was on bipap and IV steroids and diuretics. She was then transferred to Telemetry. Patient underwent a prolonged hospital course due to pneumonia with sputum CX positive for ESBL+ Klebsiella pneumonia on top of acute COPD exacerbation. Merrem was started by Dr. Obrien for this and [facility] be continued [facility] Her respiratory function slowly improved during the course of her stay. She had dyspnea at rest for which she frequently required Ventimask at night. Last night she was able to be off Ventimask and maintained her oxygen saturation. Discharging to [facility] today. 1. Acute on Chronic Hypercapneic and Hypoxemic Respiratory Failure sec to Acute exacerbation of chronic obstructive pulmonary disease (COPD)-- slowly improving saturating 97 % on 5 L O2 via NC . using Venti mask at night. Will try not to use Venturi mask and see if patient can tolerate off high flow cont Nebulizer tx RTC with Xopenex cont PO Methyprednisolone 20 mg daily cont Theophylline Pulmonary following Sputum cx positive for ESBl Klebsiella Pneumonia. Placed on isolation and was started Meropenem IV for which she will need to continue for [address] Obrien ID consulted Discharging to [facility] today 2. Pneumonia, Nosocomial , likely bacterial-due to ESBL Klebsiella Pneumonia with chest congestion , cough , unable to expectorate Pulmonary following Sputum cx growing ESBl + klebsiella Pneumonia . Started Meropenem ID consult with Dr. Obrien 3. DM type II with Hyperglycemia secondary to steroids Accucheck with coverage on Levemir to 20 units q hs cont Glipizide - as rec by DR Vu 4. Acute exacerbation of CHF (congestive heart failure) Diastolic dysfunction, resolved Diuresing well continue lasix 40 mg daily Continue Kdur PO cont Cardizem 240 mg po Daily. 5. C. difficile colitis Resolved. , completed tx with PO vanco Abdomen distention has improved Continue to monitor 6. Hyperthyroidism discussed case with Dr Vu TSH now normal ( 3.29) per Dr Vu d/c Methimazole 7. HTN (hypertension) Continue current management: Diltiazem and Losartan. increased Diltiazem dose 8. Hx of breast cancer Continue current management: Arimidex. 9. Hypokalemia Diuretic induced K 3.8 today Replace with Kdur PO 10. Anemia of chronic disease H&H stable 11. DVT prophylaxis RLE U/S negative for DVT. d/c Lovenox ( d/c due to nosebleed) decreased ASA to 81 mg daily Discharge Exam - Head Exam Head Exam: ATRAUMATIC, NORMOCEPHALIC Discharge Plan - Discharge Medications Prescriptions: Aspirin [Aspirin EC] 325 mg PO DAILY #1 ect Meropenem IV 1 gm in NS [Merrem IV 1 gm Premix] 1 gm IVPB Q8 14 Days bag - Follow Up Plan Condition: SERIOUS Disposition: REHAB FACILITY/REHAB UNIT Instructions: Heart Failure, Adult (DC), Exacerbation of COPD (DC) Referrals: Bala Benz MD [Family Provider] -
--- NOTE | 2017-12-28 21:42 | PN ---
Copied To: Polly Vu MD Attending MD: Polly Vu MD DATE: 12/28/2017 ENDO FOLLOWUP NOTE LOCATION: In room 411. SUBJECTIVE: This is a 67-year-old female with recent uncontrolled type 2 insulin-requiring diabetes, now being followed closely for metabolic management. Her glycemic levels are fluctuating, but much improved at this time and the latest glucose levels actually were on the low side of normal today, ranging from 55 to 84 and 112 mg/dL. LABORATORY DATA: Her chemistry showed a BUN of 17, sodium 142, potassium 3.5, chloride 109, CO2 of 27, glucose 93, and creatinine 0.5. ASSESSMENT AND PLAN: So at this time, we will observe her oral intake, which has been quite variable as per the nursing staff and still continue her glipizide to be given with meals at 10 mg b.i.d. as ordered. However, if her oral intake remains variable tomorrow, then we will actually discontinue the oral hypoglycemic therapy as indicated. We will obtain serial thyroid studies and determine the need to resume her Tapazole medications as indicated. We will follow. Polly Vu MD
[2017-12-29] MEDS: Ipratropium 0.02% Inhal Soln (0.5 mg/2.5 ml) UD IH SCH ×3 (01:14→13:03)
[2017-12-29] MEDS: Levalbuterol 1.25 MG/3 ML Inhal Soln UD INH SCH ×3 (01:15→13:03)
[2017-12-29] MEDS: Meropenem 1 GM in Sodium Chloride 0.9% 100 ML IVPB SCH ×2 (05:12→12:52)
[2017-12-29 05:15] VITALS: RESP 18
[2017-12-29 07:52] VITALS: O2SAT 98
[2017-12-29] MEDS: Insulin Regular 100 units/ml SC SCH ×2 (08:13→12:34)
[2017-12-29] MEDS: Potassium Chloride 20 mEq ER Tab PO SCH (09:13)
[2017-12-29] MEDS: Pantoprazole 40 mg EC Tab PO SCH (09:13)
[2017-12-29] MEDS: guaiFENesin 600 mg ER Tab PO SCH (09:14)
[2017-12-29] MEDS: THEOPHYLLINE 400 MG T24(UNIPHYL) PO SCH (09:14)
[2017-12-29] MEDS: diltiaZEM 240 mg/24 Hours CD Cap PO SCH (09:14)
--- NOTE | 2017-12-29 09:45 | CP.PCM.DIS ---
Provider - Provider Date of Admission: 11/10/17 19:40 Attending physician: Joselo Noel MD Primary care physician: Dr. Benz Consults: Dr. Benz- pulmonary Dr. Obrien- ID Dr. Garsia- GI Time Spent in preparation of Discharge (in minutes): 25 Hospital Course - Lab Results Lab Results: Micro Results 12/23/17 17:05 Sputum Induced Gram Stain - Final 12/23/17 17:05 Sputum Induced Sputum Culture - Final Klebsiella Pneumoniae Ssp Pneu 11/20/17 19:34 Nose MRSA Culture (Admit) - Final MRSA NOT DETECTED 11/10/17 15:00 Blood Blood Culture - Final NO GROWTH AFTER 5 DAYS 11/10/17 15:00 Blood Gram Stain - Final TEST NOT PERFORMED 11/12/17 16:24 Stool Ova and Parasite Concentrate Exam - Final 11/12/17 16:24 Stool Stool Culture - Final NO SALMONELLA, SHIGELLA OR CAMPYLOBACTER ISOLATED. 11/10/17 00:40 Naris MRSA Culture (Admit) - Final MRSA NOT DETECTED Most Recent Lab Values WBC 5.6 K/uL (4.8-10.8) 12/28/17 04:20 RBC 2.88 Mil/uL (3.80-5.20) L 12/28/17 04:20 Hgb 8.8 g/dL (12.0-16.0) L 12/28/17 04:20 Hct 27.1 % (34.0-47.0) L 12/28/17 04:20 MCV 94.3 fl (81.0-99.0) 12/28/17 04:20 MCH 30.6 pg (27.0-31.0) 12/28/17 04:20 MCHC 32.4 g/dL (33.0-37.0) L 12/28/17 04:20 RDW 24.0 % (11.5-14.5) H 12/28/17 04:20 Plt Count 274 K/uL (130-400) 12/28/17 04:20 MPV 7.2 fl (7.2-11.7) 12/20/17 04:20 Neut % (Auto) 85.6 % (50.0-75.0) H 12/20/17 04:20 Lymph % (Auto) 8.0 % (20.0-40.0) L 12/20/17 04:20 [place] % (Auto) 6.1 % (0.0-10.0) 12/20/17 04:20 Eos % (Auto) 0.1 % (0.0-4.0) 12/20/17 04:20 Baso % (Auto) 0.2 % (0.0-2.0) 12/20/17 04:20 Neut # (Auto) 3.7 K/uL (1.8-7.0) 12/20/17 04:20 Lymph # (Auto) 0.3 K/uL (1.0-4.3) L 12/20/17 04:20 [place] # (Auto) 0.3 K/uL (0.0-0.8) 12/20/17 04:20 Eos # (Auto) 0.0 K/uL (0.0-0.7) 12/20/17 04:20 Baso # (Auto) 0.0 K/uL (0.0-0.2) 12/20/17 04:20 Neutrophils % (Manual) 86 % (42-75) H 12/20/17 04:20 Band Neutrophils % 1 % (0-2) 11/27/17 05:52 Lymphocytes % (Manual) 10 % (20-50) L 12/20/17 04:20 Reactive Lymphs % 2 % (0-0) H 11/24/17 04:45 Monocytes % (Manual) 4 % (0-10) 12/20/17 04:20 Myelocytes % 1 % (0-0) H 11/24/17 04:45 Toxic Granulation Present 12/20/17 04:20 Platelet Estimate Normal (NORMAL) 12/20/17 04:20 Large Platelets Present 11/27/17 05:52 Giant Platelets Present 11/27/17 05:52 Hypochromasia (manual) Moderate 12/20/17 04:20 Anisocytosis (manual) Moderate 12/20/17 04:20 Tear Drop Cells Slight 12/20/17 04:20 Ovalocytes Slight 12/20/17 04:20 Schistocytes Slight 12/20/17 04:20 PT 10.3 Seconds (9.8-13.1) 12/11/17 20:08 INR 0.9 12/11/17 20:08 APTT 27.5 Seconds (25.6-37.1) 12/11/17 20:08 pCO2 50 mm/Hg (35-45) H 12/19/17 12:17 pO2 78 mm/Hg (80-100) L 12/19/17 12:17 HCO3 33.8 mmol/L (21-28) H 12/19/17 12:17 ABG pH 7.47 (7.35-7.45) H 12/19/17 12:17 ABG Total CO2 37.9 mmol/L (22-28) H 12/19/17 12:17 ABG O2 Saturation 98.3 % (95-98) H 12/19/17 12:17 ABG O2 Content 12.1 ML/dL (15-23) L 12/19/17 12:17 ABG Base Excess 11.4 mmol/L (-2.0-3.0) H 12/19/17 12:17 ABG Hemoglobin 9.0 g/dL (11.7-17.4) L 12/19/17 12:17 ABG Carboxyhemoglobin 2.1 % (0.5-1.5) H 12/19/17 12:17 POC ABG HHb (Measured) 1.6 % (0.0-5.0) 12/19/17 12:17 ABG Methemoglobin 1.9 % (0.0-3.0) 12/19/17 12:17 ABG O2 Capacity 12.3 mL/dL (16-24) L 12/19/17 12:17 Tawanda Test Yes 12/19/17 12:17 ABG Potassium 3.0 mmol/L (3.6-5.2) L 11/10/17 15:38 A-a O2 Difference 216.0 mm/Hg 12/19/17 12:17 Hgb O2 Saturation 94.4 % (95.0-98.0) L 12/19/17 12:17 Sodium 138.0 mmol/L (132-148) 11/10/17 15:38 Chloride 105.0 mmol/L (98-107) 11/10/17 15:38 Glucose 91 mg/dL (65-105) 11/10/17 15:38 Lactate 0.8 mmol/L (0.7-2.1) 07/05/18 15:38 Liter Flow 30 11/17/17 10:10 Vent Mode High flow lpm 11/17/17 10:10 FiO2 50.0 % 12/19/17 12:17 Inspiratory BiPAP 10 11/10/17 15:38 Expiratory BiPAP 5 11/10/17 15:38 Blood Gas Comments 50% venti mask 12/19/17 12:17 Crit Value Called To Dr lisa garcia 11/17/17 10:10 Crit Value Called By Salvador 11/17/17 10:10 Crit Value Read Back N 12/19/17 12:17 Blood Gas Notified Time 1036 11/17/17 10:10 Sodium 142 mmol/l (132-148) 12/28/17 04:20 Potassium 3.5 MMOL/L (3.6-5.0) L 12/28/17 04:20 Chloride 109 mmol/L (98-107) H 12/28/17 04:20 Carbon Dioxide 27 mmol/L (22-30) 12/28/17 04:20 Anion Gap 10 (10-20) 12/28/17 04:20 BUN 17 mg/dl (7-17) 12/28/17 04:20 Creatinine 0.5 mg/dl (0.7-1.2) L 12/28/17 04:20 Est GFR ( Amer) > 60 12/28/17 04:20 Est GFR (Non-Af Amer) > 60 12/28/17 04:20 POC Glucose (mg/dL) 191 mg/dL (65-110) H 12/29/17 06:27 Random Glucose 93 mg/dL (65-105) 12/28/17 04:20 Calcium 8.7 mg/dL (8.4-10.2) 12/28/17 04:20 Phosphorus 3.3 mg/dl (2.5-4.5) 12/09/17 05:23 Magnesium 2.1 MG/DL (1.6-2.3) 12/20/17 04:20 Iron 55 ug/dL (37-170) 12/18/17 09:58 TIBC 314 ug/dL (250-450) 12/18/17 09:58 % Saturation 18 % (20-55) L 12/18/17 09:58 Ferritin 38.9 ng/Ml (11.1-264.0) 12/18/17 09:58 Total Bilirubin 0.3 mg/dl (0.2-1.3) 12/28/17 04:20 AST 20 U/L (14-36) 12/28/17 04:20 ALT 40 U/L (9-52) 12/28/17 04:20 Alkaline Phosphatase 71 U/L (38-126) 12/28/17 04:20 Troponin I 0.0490 ng/mL (0.00-0.120) 12/08/17 15:16 NT-Pro-B Natriuret Pep 3990 pg/ml (0-900) H 11/12/17 04:15 Total Protein 5.5 G/DL (6.3-8.2) L 12/28/17 04:20 Albumin 3.0 g/dL (3.5-5.0) L 12/28/17 04:20 Globulin 2.4 gm/dL (2.2-3.9) 12/28/17 04:20 Albumin/Globulin Ratio 1.2 (1.0-2.1) 12/28/17 04:20 Nytrt-8-Jvxguehjkdd 110 mg/dL (83-199) 11/21/17 10:01 Vitamin B12 349 pg/mL (239-931) 12/18/17 09:58 Procalcitonin < 0.05 NG/ML (0.19-0.49) L 11/27/17 11:07 Free T4 0.48 ng/dL (0.78-2.19) L 12/22/17 05:20 Thyroxine (T4) 3.79 ug/dl (5.5-11.0) L 12/22/17 05:20 Total T3 0.910 nmol/L (1.49-2.60) L 11/12/17 04:15 TSH 3rd Generation 3.12 mIU/ML (0.46-4.68) 12/22/17 05:20 Thyroid Stim Immunoglob <89 % baseline (<140) 11/25/17 04:20 Arterial Blood Potassium 3.0 mmol/L (3.6-5.2) L 11/10/17 15:38 Urine Color Straw (YELLOW) 11/12/17 14:48 Urine Clarity Clear (Clear) 11/12/17 14:48 Urine pH 7.0 (5.0-8.0) 11/12/17 14:48 Ur Specific [place] 1.009 (1.003-1.030) 11/12/17 14:48 Urine Protein Negative mg/dL (NEGATIVE) 11/12/17 14:48 Urine Glucose (UA) Neg mg/dL (Normal) 11/12/17 14:48 Urine Ketones Negative mg/dL (NEGATIVE) 11/12/17 14:48 Urine Blood Negative (NEGATIVE) 11/12/17 14:48 Urine Nitrate Negative (NEGATIVE) 11/12/17 14:48 Urine Bilirubin Negative (NEGATIVE) 11/12/17 14:48 Urine Urobilinogen 0.2-1.0 mg/dL (0.2-1.0) 11/12/17 14:48 Ur Leukocyte Esterase Trace Ben/uL (Negative) 11/12/17 14:48 Urine RBC (Auto) 2 /hpf (0-3) 11/12/17 14:48 Urine Microscopic WBC 4 /hpf (0-5) 11/12/17 14:48 Ur Squamous Epith Cells 1 /hpf (0-5) 11/12/17 14:48 Urine Bacteria Few (<OCC) H 11/12/17 14:48 Hyaline Casts 3-5 /hpf (0-2) H 11/12/17 14:48 Stool Leukocytes, Qual Negative (NEGATIVE) 11/12/17 21:24 Vancomycin Trough 7.4 ug/mL (5.0-10.0) 12/23/17 18:10 Theophylline 11 ug/ml (10-20) 12/23/17 18:10 C. difficile Ag & Toxin Negative (NEGATIVE) 11/16/17 13:50 - Hospital Course Hospital Course: 67 yo female with extensive medical history including COPD, CHF, hypothyroidism , history of breast Cancer s/p mastectomy, chronic RUE lymphedema was brought into the ED because of dyspnea. Patient was then found to be in respiratory failure secondary to COPD and CHF exacerbation. Patient was admitted to ICU where she was on bipap and IV steroids and diuretics. She was then transferred to Telemetry. Patient underwent a prolonged hospital course due to pneumonia with sputum CX positive for ESBL+ Klebsiella pneumonia on top of acute COPD exacerbation. Merrem was started by Dr. Obrien for this [facility] Her respiratory function slowly improved during the course of her stay. She had dyspnea at rest for which she frequently required Ventimask at night. She has now been off Venti mask for 48 hours and oxygen saturation is normal on nasal cannula, 2 liters. Discharging to [facility] today. 1. Acute on Chronic Hypercapneic and Hypoxemic Respiratory Failure sec to Acute exacerbation of chronic obstructive pulmonary disease (COPD)-- slowly improving saturating 97 % on 5 L O2 via NC . using Venti mask at night. Will try not to use Venturi mask and see if patient can tolerate off high flow cont Nebulizer tx RTC with Xopenex cont PO Methyprednisolone 20 mg daily cont Theophylline Pulmonary following Sputum cx positive for ESBl Klebsiella Pneumonia. Placed on isolation and was started Meropenem IV for which she will need to continue for [address] Obrien ID consulted Discharging to [facility] today 2. Pneumonia, Nosocomial , likely bacterial-due to ESBL Klebsiella Pneumonia with chest congestion , cough , unable to expectorate Pulmonary following Sputum cx growing ESBl + klebsiella Pneumonia . Continue Meropenem for 2 weeks ID consult with Dr. Obrien 3. DM type II with Hyperglycemia secondary to steroids Accucheck with coverage on Levemir to 20 units q hs cont Glipizide - as rec by DR Vu 4. Acute exacerbation of CHF (congestive heart failure) Diastolic dysfunction, resolved Diuresing well continue lasix 40 mg daily Continue Kdur PO cont Cardizem 240 mg po Daily. 5. C. difficile colitis Resolved. , completed tx with PO vanco Abdomen distention has improved Continue to monitor 6. Hyperthyroidism discussed case with Dr uV TSH now normal ( 3.29) per Dr Vu d/c Methimazole 7. HTN (hypertension) Continue current management: Diltiazem and Losartan. increased Diltiazem dose 8. Hx of breast cancer Continue current management: Arimidex. 9. Hypokalemia Diuretic induced K 3.8 today Replace with Kdur PO 10. Anemia of chronic disease H&H stable 11. DVT prophylaxis RLE U/S negative for DVT. d/c Lovenox ( d/c due to nosebleed) decreased ASA to 81 mg daily Discharge Exam - Head Exam Head Exam: ATRAUMATIC, NORMOCEPHALIC - Additional Findings Additional findings: Physical exam: Constitutional- cooperative, awake, alert Head- NCAT, PERRL Eye- PERRL, EOMI ENT- normal exam, MMM. Neck- normal inspection, supple, no JVD Respiratory- prolonged expiratory phase, scattered rhonchi, no wheezes or rales Cardiovascular- RRR, +S1, +S2 no MRG GI/Abdominal- normal bowel sounds, soft, no mass, no hsm Skin- multiple echymotic lesions to lower extremities, upper extremities and abdominal wall. warm, dry Extremities Exam- normal capillary refill, normal inspection Neurological Exam- alert, awake, oriented Psych- normal mood, normal affect Discharge Plan - Discharge Medications Prescriptions: Meropenem IV 1 gm in NS [Merrem IV 1 gm Premix] 1 gm IVPB Q8 14 Days bag - Follow Up Plan Condition: SERIOUS Disposition: REHAB FACILITY/REHAB UNIT Instructions: Heart Failure, Adult (DC), Exacerbation of COPD (DC) Referrals: Bala Benz MD [Family Provider] -
--- NOTE | 2017-12-29 11:17 | CP.PCM.PN ---
Subjective - Date & Time of Evaluation Date of Evaluation: 12/29/17 Time of Evaluation: 09:58 - Subjective Subjective: Patient was seen and examined this morning. -She had no complaints overnight, slept well without any issues, and had no need for the venturi mask. -She was sitting upright in bed, appears comfortable & in no distress. -Vitals this AM : Temp: 97.1F, P-108H, 134/76, RR-18, O2 sat 95% on 4L of NC which is within limits of baseline -Rhonchi noted throughout bilaterally with no wheeze, similar to previous findings. -Possible discharge today to subacute rehab. Objective - Vital Signs/Intake and Output Vital Signs (last 24 hours): Temp Pulse Resp BP Pulse Ox 98.1 F 102 H 18 119/73 98 12/29/17 07:51 12/29/17 09:14 12/29/17 07:51 12/29/17 09:14 12/29/17 07:51 - Medications Medications: Current Medications Acetaminophen (Tylenol 325mg Tab) 650 mg PO Q6 PRN PRN Reason: Headache Last Admin: 12/24/17 07:02 Dose: 650 mg Acetazolamide (Diamox 250 Mg Tab) 250 mg PO BID [facility] Last Admin: 12/29/17 09:13 Dose: 250 mg Alprazolam (Xanax) 0.25 mg PO Q8 PRN PRN Reason: Anxiety Stop: 12/30/17 22:18 Last Admin: 12/28/17 21:42 Dose: 0.25 mg Anastrozole (Arimidex 1 Mg Tab) 1 mg PO DAILY [facility] Last Admin: 12/29/17 09:15 Dose: 1 mg Aspirin (Aspirin Chewable) 81 mg PO DAILY [facility] Last Admin: 12/29/17 09:14 Dose: 81 mg Atorvastatin Calcium (Lipitor) 40 mg PO HS [facility] Last Admin: 12/28/17 21:35 Dose: 40 mg Dextrose (Dextrose 50% Inj) 0 ml IV STAT PRN; Protocol PRN Reason: Hypoglycemia Protocol Dextrose (Glutose 15) 0 gm PO ONCE PRN; Protocol PRN Reason: Hypoglycemia Protocol Diltiazem HCl (Cardizem Cd) 240 mg PO DAILY [facility] Last Admin: 12/29/17 09:14 Dose: 240 mg Emollient Ointment (Vaseline Oint) 1 pkt TOP BID PRN PRN Reason: Dry skin Last Admin: 12/27/17 14:16 Dose: 1 pkt Furosemide (Lasix) 40 mg PO DAILY [facility] Last Admin: 12/25/17 09:10 Dose: 40 mg Glipizide (Glucotrol) 5 mg PO BIDAC [facility] Last Admin: 12/29/17 09:13 Dose: 5 mg Glucagon (Glucagen Diagnostic Kit) 0 mg IM STAT PRN; Protocol PRN Reason: Hypoglycemia Protocol Guaifenesin (Mucinex La) 600 mg PO Q12 [facility] Last Admin: 12/29/17 09:14 Dose: 600 mg Meropenem 1 gm/ Sodium (Chloride) 100 mls @ 100 mls/hr IVPB Q8@0500,1300,2100 [facility] PRN Reason: Protocol Last Admin: 12/29/17 05:12 Dose: 100 mls/hr Insulin Human Regular (Humulin R) 0 units SC ACHS [facility]RE[facility] PRN Reason: Protocol Last Admin: 12/29/17 08:13 Dose: Not Given Ipratropium Furlong (Atrovent) 0.5 mg IH RQ6 [facility] Last Admin: 12/29/17 07:31 Dose: 0.5 mg Levalbuterol HCl (Xopenex) 0.63 mg INH RQ4 PRN PRN Reason: Shortness of Breath Last Admin: 12/22/17 03:30 Dose: 0.63 mg Levalbuterol HCl (Xopenex) 1.25 mg INH RQ6 [facility] Last Admin: 12/29/17 07:31 Dose: 1.25 mg Lidocaine (Lidoderm) 1 ea TD DAILY PRN PRN Reason: Pain, moderate (4-7) Last Admin: 11/29/17 09:38 Dose: 1 ea Methylprednisolone (Medrol) 20 mg PO DAILY [facility] Last Admin: 12/29/17 09:13 Dose: 20 mg Mirtazapine (Remeron) 15 mg PO HS [facility] Last Admin: 12/28/17 21:35 Dose: 15 mg Ondansetron HCl (Zofran Inj) 4 mg IVP Q4 PRN PRN Reason: Nausea/Vomiting Last Admin: 11/13/17 19:35 Dose: 4 mg Pantoprazole Sodium (Protonix Ec Tab) 40 mg PO DAILY [facility] Last Admin: 12/29/17 09:13 Dose: 40 mg Potassium Chloride (K-Dur 20 Meq Er Tab) 20 meq PO DAILY [facility] Last Admin: 12/29/17 09:13 Dose: 20 meq Theophylline (Uniphyl) 400 mg PO DAILY [facility] Last Admin: 12/29/17 09:14 Dose: 400 mg - Labs Labs: 12/28/17 04:20 12/28/17 04:20 PT 10.3 Seconds (9.8-13.1) 12/11/17 20:08 INR 0.9 12/11/17 20:08 APTT 27.5 Seconds (25.6-37.1) 12/11/17 20:08
[2017-12-29 12:14] VITALS: BP 122/64; PULSE 109; TEMP 98.2
--- NOTE | 2017-12-29 18:24 | PN ---
Copied To: Polly Vu MD Attending MD: Polly Vu MD DATE: 12/29/2017 ENDO FOLLOWUP NOTE LOCATION: Room 411 SUBJECTIVE: This is a 67-year-old female with recent uncontrolled type 2 insulin-requiring diabetes, now has been taken off the Levemir therapy at bedtime and only on oral hypoglycemic therapy as given. Her glucose values have improved and have ranged from 105 to 191 mg/dL. 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 ASSESSMENT AND PLAN: So for now, we will lower the glipizide to 5 mg b.i.d. before meals as ordered. We will titrate incrementally as indicated to optimize metabolic control. We will also hold off the resumption of her Tapazole medications as she remained subclinically hypothyroid with the recent thyroid testing evaluation. We will obtain serial chemistries and supplement accordingly as needed. We will follow. Polly Vu MD
== END 2017-12-29 13:30 | DRG 291 ==
LOC: H.ER 14:59 → H.ERHOLD 19:40 → H.ICU/CCU 22:28 → H.TEL 11-19 23:37
PROVIDERS: ADMIT Internal Medicine; ATTEND Internal Medicine
PROC: 5A09357 Assistance with Respiratory Ventilation, Less than 24 Consecutive Hours, Continuous Positive Airway Pressure (ICD-10-PCS; principal; 2017-11-10)
PROC: 3E0F7GC Introduction of Other Therapeutic Substance into Respiratory Tract, Via Natural or Artificial Opening (ICD-10-PCS; 2017-11-10)
DX: I11.0 Hypertensive heart disease with heart failure (principal); J15.0 Pneumonia due to Klebsiella pneumoniae; J96.21 Acute and chronic respiratory failure with hypoxia; J96.22 Acute and chronic respiratory failure with hypercapnia; J44.0 Chronic obstructive pulmonary disease with (acute) lower respiratory infection; J44.1 Chronic obstructive pulmonary disease with (acute) exacerbation; A04.72 Enterocolitis due to Clostridium difficile, not specified as recurrent; C79.51 Secondary malignant neoplasm of bone; I24.8 Other forms of acute ischemic heart disease; I47.1 Supraventricular tachycardia; I50.43 Acute on chronic combined systolic (congestive) and diastolic (congestive) heart failure; D63.8 Anemia in other chronic diseases classified elsewhere; E06.3 Autoimmune thyroiditis; E11.65 Type 2 diabetes mellitus with hyperglycemia; E05.00 Thyrotoxicosis with diffuse goiter without thyrotoxic crisis or storm; L89.152 Pressure ulcer of sacral region, stage 2; L89.322 Pressure ulcer of left buttock, stage 2; Z66 Do not resuscitate; T38.0X5A Adverse effect of glucocorticoids and synthetic analogues, initial encounter; E87.6 Hypokalemia; I95.2 Hypotension due to drugs; R04.0 Epistaxis; Y95 Nosocomial condition; Z16.24 Resistance to multiple antibiotics; I89.0 Lymphedema, not elsewhere classified; G62.9 Polyneuropathy, unspecified; E78.5 Hyperlipidemia, unspecified; F41.9 Anxiety disorder, unspecified; M81.0 Age-related osteoporosis without current pathological fracture; Z99.81 Dependence on supplemental oxygen; Z85.3 Personal history of malignant neoplasm of breast; Z92.21 Personal history of antineoplastic chemotherapy; Z92.3 Personal history of irradiation; Z79.4 Long term (current) use of insulin; Z79.82 Long term (current) use of aspirin; Z90.13 Acquired absence of bilateral breasts and nipples; Z87.01 Personal history of pneumonia (recurrent); Z96.611 Presence of right artificial shoulder joint; Z87.891 Personal history of nicotine dependence

== ENCOUNTER 2018-02-07 23:29 | Inpatient (IN) | payer MEDICARE, BC ==
[2018-02-07 23:30] VITALS: BMI 26.5
[2018-02-08] MEDS ORDERED: Piperacillin/Tazobact 4.5 GM in Sodium Chloride 0.9% 100 ML IVPB STA (00:01)
[2018-02-08] MEDS ORDERED: Sodium Chloride 0.9% 1,000 ML IV STA (00:01)
[2018-02-08] MEDS ORDERED: Sodium Chloride 0.9% 1,000 ML IV SCH (00:30)
--- NOTE | 2018-02-08 00:43 | ED PDOC ---
HPI: General Adult Time Seen by Provider: 02/07/18 23:35 Chief Complaint (Nursing): Abnormal Labs Chief Complaint (Provider): Abnormal Labs History Per: Patient History/Exam Limitations: no limitations Onset/Duration Of Symptoms: Hrs Current Symptoms Are (Timing): Still Present Additional Complaint(s): Michelle Hanson is a 67 year old female with a past medical history of COPD, hypertension, and congestive heart failure who is a resident of a half-way which sent her to the ED for evaluation for abnormal blood work. Chart review shows that she had hypokalemia, hypoglycemia, and leukocytosis. Patient states that she is feeling but reports that she has a 102 fever yesterday. She also states that her cough is more persistent than normal. PMD: Cristhian Monet Past Medical History Reviewed: Historical Data, Nursing Documentation, Vital Signs Vital Signs: Last Vital Signs Temp 99.4 F 02/08/18 00:20 Pulse 109 H 02/07/18 23:44 Resp 16 02/07/18 23:32 BP 97/51 L 02/07/18 23:44 Pulse Ox 95 02/07/18 23:44 - Medical History PMH: Anemia, Anxiety, Arthritis, Asthma, Bronchitis, Cardia Arrhythmia, CHF, COPD, Fractures, Gall Bladder Disease, HTN, Hyperthyroidism (on methimazole), Hypothyroidism, Malignancy (breast CA), Osteoporosis, Pneumonia Denies: HIV, Chronic Kidney Disease - Surgical History Other surgeries: orthopedic surgery - Family History Family History: States: Unknown Family Hx - Social History Current smoker - smoking cessation education provided: No Alcohol: None Drugs: Denies - Home Medications Home Medications: Ambulatory Orders Medication Instructions Recorded Anastrozole [Arimidex 1 mg Tab] 1 mg PO DAILY #0 12/12/16 Gabapentin [Neurontin] 600 mg PO Q8 11/10/17 guaiFENesin [Mucinex LA] 600 mg PO Q12 11/10/17 Acetaminophen [Tylenol 325mg tab] 650 mg PO Q6 PRN tab 11/23/17 Acetaminophen [Tylenol 325mg tab] 650 mg PO Q6 PRN tab 12/28/17 Aspirin [Aspirin Chewable] 81 mg PO DAILY chew 12/28/17 Atorvastatin [Lipitor] 40 mg PO HS tab 12/28/17 Furosemide [Lasix] 40 mg PO DAILY tab 12/28/17 Insulin Human Regular [HumuLIN R] 0 units SC ACHS ml 12/28/17 Ipratropium 0.02% [Atrovent] 0.5 mg IH RQ6 neb 12/28/17 Potassium Chloride [K-Dur 20 mEq 20 meq PO DAILY tab 12/28/17 ER Tab] acetaZOLAMIDE [Diamox 250 mg Tab] 250 mg PO BID tab 12/28/17 diltiaZEM CD [Cardizem CD] 240 mg PO DAILY cap 12/28/17 Azithromycin [Zithromax] 250 mg PO DAILY 02/08/18 Bismuth Subsalicylate [Kaopectate] 30 ml PO Q6 PRN 02/08/18 Cholestyramine (with Sugar) 4 gm PO DAILY 02/08/18 [Questran Packet] Dronabinol [Marinol] 2.5 mg PO DAILY 02/08/18 Loperamide HCl [Imodium A-D] 2 mg PO Q6 PRN 02/08/18 Magnesium Hydroxide [Milk of 30 ml PO DAILY PRN 02/08/18 Magnesia] Menthol/Zinc Oxide [Calmoseptine 1 applic TOP QSHIFT 02/08/18 Ointment] Metoclopramide [Reglan] 5 mg PO BID 02/08/18 Ondansetron HCl [Zofran] 4 mg PO Q4 PRN 02/08/18 Saccharomyces Boulardi [Florastor] 250 mg PO DAILY 02/08/18 - Allergies Allergies/Adverse Reactions: Allergies Allergy/AdvReac Type Severity Reaction Status Date / Time paper tape Allergy RASH Uncoded 02/08/18 02:36 Review of Systems ROS Statement: Except As Marked, All Systems Reviewed And Found Negative Constitutional: Positive for: Fever Respiratory: Positive for: Cough Physical Exam - Reviewed Nursing Documentation Reviewed: Yes Vital Signs Reviewed: Yes - Physical Exam Appears: Positive for: Non-toxic, No Acute Distress (chronically ill appearing ) Head Exam: Positive for: ATRAUMATIC, NORMAL INSPECTION, NORMOCEPHALIC Skin: Positive for: Normal Color, Warm, DRY Eye Exam: Positive for: EOMI, Normal appearance, PERRL ENT: Positive for: Normal ENT Inspection Neck: Positive for: Normal, Painless ROM, Supple Cardiovascular/Chest: Positive for: Regular Rate, Rhythm. Negative for: Murmur Respiratory: Positive for: Normal Breath Sounds. Negative for: Respiratory Distress Gastrointestinal/Abdominal: Positive for: Normal Exam, Soft. Negative for: Tenderness Back: Positive for: Normal Inspection. Negative for: L CVA Tenderness, R CVA Tenderness Extremity: Positive for: Normal ROM, Other ( lymphedema of right upper extremity). Negative for: Deformity, Swelling Neurologic/Psych: Positive for: Alert, Oriented. Negative for: Motor/Sensory Deficits - Laboratory Results Result Diagrams: 02/08/18 00:40 02/08/18 00:40 - ECG O2 Sat by Pulse Oximetry: 95 (RA) Medical Decision Making Medical Decision Making: Time: 00:05 A/P:67 year old half-way patient brought in for abnormal blood work and fever yesterday --Patients vitals show mild hypotension and tachycardia --Rectally afebrile --Patient possibly septic --Antibiotics ordered empirically --Cant bolus patient due to CHF, fluids will be administered gently --Monitor for signs of fluid overload --Patient will be admitted for possible pneumonia 2:14 --Patient is resting comfortably. --Blood Pressure: 101/45. --Heart Rate: 99. 04:00 --Patient further improving, vitals improved --Will treat hypoglycemia with D50 --Dr. Monet aware of patient Scribe Attestation: Documented by Debra Pruitt, acting as a scribe for Luke Sheth MD. Provider Scribe Attestation: All medical record entries made by the Scribe were at my direction and personall y dictated by me. I have reviewed the chart and agree that the record accurately reflects my personal performance of the history, physical exam, medical decision making, and the department course for this patient. I have also personally directed, reviewed, and agree with the discharge instructions and disposition. Disposition - Clinical Impression Clinical Impression: Sepsis, Fever - Patient ED Disposition Is Patient to be Admitted: Yes - Disposition Disposition Time: 02:00 Condition: FAIR
[2018-02-08 00:58] LABS: BASO # 0.1 K/uL (0.0-0.2); BASO % 0.3 % (0.0-2.0); EOS % 0.1 % (0.0-4.0); HEMOGLOBIN 9.9 g/dL (12.0-16.0); LYMPH # 1.3 K/uL (1.0-4.3); LYMPH % 5.2 % (20.0-40.0); MEAN CELL VOLUME 86.2 fl (81.0-99.0); MEAN CORPUSCULAR HEMOGLOBIN 26.1 pg (27.0-31.0); MEAN CORPUSCULAR HGB CONC 30.2 g/dL (33.0-37.0); MEAN PLATELET VOLUME 7.3 fl (7.2-11.7); MONO # 2.3 K/uL (0.0-0.8); MONO % 8.9 % (0.0-10.0); NEUT # 22.2 K/uL (1.8-7.0); NEUT % 85.5 % (50.0-75.0); PLATELET COUNT 347 K/uL (130-400); RBC 3.78 Mil/uL (3.80-5.20); WHITE BLOOD COUNT 25.9 K/uL (4.8-10.8)
[2018-02-08 01:05] LABS: INR 1.7; PROTHROMBIN TIME 19.2 Seconds (9.8-13.1)
[2018-02-08 01:06] LABS: VENOUS BLOOD GAS BASE EXCESS 2.7 mmol/L (0.0-2.0); VENOUS BLOOD GAS PCO2 50 mmHg (40-60); VENOUS BLOOD GAS PO2 60 mm/Hg (30-55); VENOUS BLOOD PH 7.37 (7.32-7.43)
[2018-02-08 01:07] LABS: PARTIAL THROMBOPLASTIN TIME 36.5 Seconds (25.6-37.1)
[2018-02-08 01:08] LABS: ALB/GLOB RATIO 0.7 (1.0-2.1); ALBUMIN 2.1 g/dL (3.5-5.0); ALT/SGPT 52 U/L (9-52); AST/SGOT 62 U/L (14-36); BLOOD UREA NITROGEN 7 mg/dl (7-17); CALCIUM 7.7 mg/dL (8.4-10.2); GFR NON-AFRICAN AMERICAN > 60
[2018-02-08] MEDS ORDERED: Vancomycin 1 g Inj ONE (01:17)
[2018-02-08] MEDS: Potassium CL 10 MEQ/50 ML 50 ML IVPB SCH ×3 (02:09→06:34)
[2018-02-08 02:31] LABS: ANISOCYTOSIS SLIGHT; BANDS 1 % (0-2); LARGE PLATELETS PRESENT; LYMPHOCYTE 5 % (20-50); MONOCYTE 7 % (0-10); NEUTROPHIL 87 % (42-75); PLATELET ESTIMATE NORMAL (NORMAL); TOTAL CELLS COUNTED 100
[2018-02-08 03:33] LABS: VENOUS BLOOD GAS BASE EXCESS 0.1 mmol/L (0.0-2.0); VENOUS BLOOD GAS PCO2 56 mmHg (40-60); VENOUS BLOOD GAS PO2 32 mm/Hg (30-55)
[2018-02-08] MEDS ORDERED: Potassium CL 10 MEQ/50 ML 50 ML ONE (03:33)
[2018-02-08] MEDS ORDERED: Dextrose 50% SYRINGE Inj (50 ml) IVP ONE (04:12)
[2018-02-08 04:15] LABS: SQUAMOUS EPITHIAL 3 /hpf (0-5); URINE BACTERIA RARE (<OCC); URINE BILIRUBIN NEGATIVE (NEGATIVE); URINE BLOOD NEGATIVE (NEGATIVE); URINE CLARITY CLOUDY (Clear); URINE COLOR YELLOW (YELLOW); URINE GLUCOSE (UA) NEG (Normal); URINE LEUKOCYTE ESTERASE NEG Leu/uL (Negative); URINE PROTEIN 30 mg/dL (NEGATIVE)
--- NOTE | 2018-02-08 07:25 | CP.PCM.HP ---
Addendum entered and electronically signed by Per Ortega DPM 02/08/18 11:01: Patient seen and examined at bedside. AAOx3 and NAD. Seen resting comfortably. Denies acute events overnight. Still complains of cough and mild shortness of breath. Crackles and rails appreciated on lung examination, no wheezing. Normal heart rhythm appreciated. Denies chest pain, fever, chills. Reports some nausea but denies any recent vomiting since admission. Will continue with current treatment plan. Original Note: <Sultan Martin - Last Filed: 02/08/18 07:59> History of Present Illness - History of Present Illness History of Present Illness: 67 y/o female with pmhx of COPD, sys/leigh CHF, HTN, hx breast CA and multiple other co-morbidities sent from [facility] for evaluation of fever, cough and abnormal blood work. Chart review shows patients had hypokalemia, hypoglycemia and leukocytosis. Patient reports fever of 102 F on 02/06/18. States she has non productive cough x 1 week. Denies chest pain, worsening dyspnea, chills, GI or complaints. In the ED, patient found to be hypotensive, tachycardic, leukocytosis. Patient admitted for possible pneumonia and sepsis. ROS: All 12 systems reviewed and negative except as mentioned in HPI. PMHx: Chronic Respiratory Failure , CHF (systolic+diastolic), COPD, bilateral metastatic breast CA to shoulder s/p chemo-XRT 8 years ago (s/p humerus resection) with chronic lymphedema RUE, HTN, hyperthyroidism, anemia of chronic disease, SVT, osteoporosis, R cephalic vein thrombosis, peripheral neuropathy, anxiety PSHx: bilateral mastectomies R 1998/L 2008, total shoulder replacement (2003) + removal (2013), cervical and lumbar fusions 2007, cholecystectomy, tubal ligation, groin cyst removal; trach placed 07/2016, removed 11/04/16 Allergies: NKDA; allergy to paper tape Medications: Per med rec Family Hx: Family history of cancer including ovarian, colon, breast, pancreatic and lung cancer Social Hx: Lives with child and grandchildren, quit smoking 2 years ago. Used smoke PPD X 50 yrs, no current EtOH Present on Admission - Present on Admission Any Indicators Present on Admission: Yes History of DVT/PE: Yes Review of Systems - Review of Systems All systems: reviewed and no additional remarkable complaints except Past Patient History - Infectious Disease Hx of Infectious Diseases: None - Tetanus Immunizations Tetanus Immunization: Unknown - Past Medical History & Family History Past Medical History?: Yes - Past Social History Smoking Status: Former Smoker - CARDIAC Hx Cardiac Disorders: Yes Hx Hypertension: Yes - PULMONARY Hx Respiratory Disorders: Yes Hx Chronic Obstructive Pulmonary Disease (COPD): Yes - NEUROLOGICAL Hx Neurological Disorder: Yes - HEENT Hx HEENT Problems: No - RENAL Hx Chronic Kidney Disease: No - ENDOCRINE/METABOLIC Hx Endocrine Disorders: Yes Hx Hyperthyroidism: Yes Hx Hypothyroidism: Yes - HEMATOLOGICAL/ONCOLOGICAL Hx AIDS: No Hx Anemia: Yes Hx Human Immunodeficiency Virus (HIV): No - INTEGUMENTARY Hx Cellulitis: Yes (RUE) - MUSCULOSKELETAL/RHEUMATOLOGICAL Hx Arthritis: Yes Hx Falls: Yes (5 months ago) Hx Fractures: Yes Hx Osteoporosis: Yes - GASTROINTESTINAL Hx Gall Bladder Disease: Yes - GENITOURINARY/GYNECOLOGICAL Hx Genitourinary Disorders: No - PSYCHIATRIC Hx Anxiety: Yes Hx Substance Use: No - SURGICAL HISTORY Hx Surgeries: Yes Hx Mastectomy: Yes (right in 1998; left in 2008) Hx Orthopedic Surgery: Yes (2003 rigtht shoulder prosthesis, removal of hardware 2013) Hx Tubal Ligation: Yes Other/Comment: shoulder and humerous replacement with joint space infection and eventual removal of hardware in right shoulder and chronic lymphedema of caty MARQUEZ cyst removal, cervical spinal fusion 2007, lumbar spinal fusion 2007. - ANESTHESIA Hx Anesthesia: Yes Hx Anesthesia Reactions: No Hx Malignant Hyperthermia: No Meds Allergies/Adverse Reactions: Allergies Allergy/AdvReac Type Severity Reaction Status Date / Time paper tape Allergy RASH Uncoded 02/08/18 02:36 Physical Exam - Constitutional Appears: Non-toxic, No Acute Distress - Head Exam Head Exam: ATRAUMATIC, NORMOCEPHALIC - Eye Exam Eye Exam: EOMI, Normal appearance, PERRL - ENT Exam ENT Exam: Mucous Membranes Moist - Respiratory Exam Respiratory Exam: absent: Accessory Muscle Use, Respiratory Distress Additional comments: On [place] oxygen. B/L crackles and rales, no wheezing - Cardiovascular Exam Cardiovascular Exam: REGULAR RHYTHM, RRR, +S1, +S2 - GI/Abdominal Exam GI & Abdominal Exam: Normal Bowel Sounds, Soft. absent: Tenderness - Extremities Exam Additional comments: Chronic right UE edema Trace b/l lower extremity edema - Back Exam Back exam: absent: CVA tenderness (L), CVA tenderness (R) - Neurological Exam Neurological exam: Alert, Oriented x3 - Psychiatric Exam Psychiatric exam: Normal Affect, Normal Mood - Skin Skin Exam: Normal Color, Warm Results - Vital Signs Recent Vital Signs: Last Vital Signs Temp 98.0 F 02/08/18 04:30 Pulse 103 H 02/08/18 06:59 Resp 20 02/08/18 04:44 BP 96/62 L 02/08/18 06:59 Pulse Ox 95 02/08/18 04:31 - Labs Result Diagrams: 02/08/18 00:40 02/08/18 00:40 Labs: Laboratory Results - last 24 hr 02/07/18 02/08/18 02/08/18 23:31 00:40 00:40 WBC 25.9 H D RBC 3.78 L Hgb 9.9 L Hct 32.6 L MCV 86.2 D MCH 26.1 L MCHC 30.2 L RDW 21.0 H Plt Count 347 MPV 7.3 Neut % (Auto) 85.5 H Lymph % (Auto) 5.2 L [place] % (Auto) 8.9 Eos % (Auto) 0.1 Baso % (Auto) 0.3 Neut # (Auto) 22.2 H Lymph # (Auto) 1.3 [place] # (Auto) 2.3 H Eos # (Auto) 0.0 Baso # (Auto) 0.1 Neutrophils % (Manual) 87 H Band Neutrophils % 1 Lymphocytes % (Manual) 5 L Monocytes % (Manual) 7 Platelet Estimate Normal Large Platelets Present Anisocytosis (manual) Slight PT INR APTT pO2 VBG pH VBG pCO2 VBG HCO3 VBG Total CO2 VBG O2 Sat (Calc) VBG Base Excess VBG Potassium Glucose Lactate FiO2 Sodium 134 Potassium 2.6 L Chloride 99 Carbon Dioxide 27 Anion Gap 11 BUN 7 Creatinine 0.5 L Est GFR ( Amer) > 60 Est GFR (Non-Af Amer) > 60 POC Glucose (mg/dL) 66 Random Glucose 72 Calcium 7.7 L Phosphorus 3.4 Magnesium 1.7 Total Bilirubin 0.7 AST 62 H D ALT 52 D Alkaline Phosphatase 251 H D Total Protein 5.0 L Albumin 2.1 L D Globulin 2.9 Albumin/Globulin Ratio 0.7 L Venous Blood Potassium Urine Color Urine Clarity Urine pH Ur Specific [place] Urine Protein Urine Glucose (UA) Urine Ketones Urine Blood Urine Nitrate Urine Bilirubin Urine Urobilinogen Ur Leukocyte Esterase Urine RBC (Auto) Urine Microscopic WBC Ur Squamous Epith Cells Urine Bacteria Influenza Typ A,B (EIA) 02/08/18 02/08/18 02/08/18 00:40 01:02 02:00 WBC RBC Hgb Hct MCV MCH MCHC RDW Plt Count MPV Neut % (Auto) Lymph % (Auto) [place] % (Auto) Eos % (Auto) Baso % (Auto) Neut # (Auto) Lymph # (Auto) [place] # (Auto) Eos # (Auto) Baso # (Auto) Neutrophils % (Manual) Band Neutrophils % Lymphocytes % (Manual) Monocytes % (Manual) Platelet Estimate Large Platelets Anisocytosis (manual) PT 19.2 H INR 1.7 APTT 36.5 pO2 60 H VBG pH 7.37 VBG pCO2 50 VBG HCO3 26.8 VBG Total CO2 30.4 H VBG O2 Sat (Calc) 93.9 H VBG Base Excess 2.7 H VBG Potassium 2.6 L Glucose 70 Lactate 0.9 FiO2 21.0 Sodium 132.0 Potassium Chloride 97.0 L Carbon Dioxide Anion Gap BUN Creatinine Est GFR ( Amer) Est GFR (Non-Af Amer) POC Glucose (mg/dL) Random Glucose Calcium Phosphorus Magnesium 1.7 Total Bilirubin AST ALT Alkaline Phosphatase Total Protein Albumin Globulin Albumin/Globulin Ratio Venous Blood Potassium 2.6 L Urine Color Urine Clarity Urine pH Ur Specific [place] Urine Protein Urine Glucose (UA) Urine Ketones Urine Blood Urine Nitrate Urine Bilirubin Urine Urobilinogen Ur Leukocyte Esterase Urine RBC (Auto) Urine Microscopic WBC Ur Squamous Epith Cells Urine Bacteria Influenza Typ A,B (EIA) 02/08/18 02/08/18 02/08/18 02:25 03:29 03:55 WBC RBC Hgb Hct MCV MCH MCHC RDW Plt Count MPV Neut % (Auto) Lymph % (Auto) [place] % (Auto) Eos % (Auto) Baso % (Auto) Neut # (Auto) Lymph # (Auto) [place] # (Auto) Eos # (Auto) Baso # (Auto) Neutrophils % (Manual) Band Neutrophils % Lymphocytes % (Manual) Monocytes % (Manual) Platelet Estimate Large Platelets Anisocytosis (manual) PT INR APTT pO2 32 VBG pH 7.30 L VBG pCO2 56 VBG HCO3 23.8 VBG Total CO2 29.3 H VBG O2 Sat (Calc) 55.3 VBG Base Excess 0.1 VBG Potassium 4.4 Glucose 50 L Lactate 0.7 FiO2 21.0 Sodium 134.0 Potassium Chloride 103.0 Carbon Dioxide Anion Gap BUN Creatinine Est GFR ( Amer) Est GFR (Non-Af Amer) POC Glucose (mg/dL) Random Glucose Calcium Phosphorus Magnesium Total Bilirubin AST ALT Alkaline Phosphatase Total Protein Albumin Globulin Albumin/Globulin Ratio Venous Blood Potassium 4.4 Urine Color Yellow Urine Clarity Cloudy Urine pH 6.0 Ur Specific [place] 1.015 Urine Protein 30 Urine Glucose (UA) Neg Urine Ketones 20 Urine Blood Negative Urine Nitrate Negative Urine Bilirubin Negative Urine Urobilinogen 4.0 H Ur Leukocyte Esterase Neg Urine RBC (Auto) 5 H Urine Microscopic WBC 9 H Ur Squamous Epith Cells 3 Urine Bacteria Rare Influenza Typ A,B (EIA) Negative for flu a/b 02/08/18 04:12 WBC RBC Hgb Hct MCV MCH MCHC RDW Plt Count MPV Neut % (Auto) Lymph % (Auto) [place] % (Auto) Eos % (Auto) Baso % (Auto) Neut # (Auto) Lymph # (Auto) [place] # (Auto) Eos # (Auto) Baso # (Auto) Neutrophils % (Manual) Band Neutrophils % Lymphocytes % (Manual) Monocytes % (Manual) Platelet Estimate Large Platelets Anisocytosis (manual) PT INR APTT pO2 VBG pH VBG pCO2 VBG HCO3 VBG Total CO2 VBG O2 Sat (Calc) VBG Base Excess VBG Potassium Glucose Lactate FiO2 Sodium Potassium Chloride Carbon Dioxide Anion Gap BUN Creatinine Est GFR ( Amer) Est GFR (Non-Af Amer) POC Glucose (mg/dL) 55 L Random Glucose Calcium Phosphorus Magnesium Total Bilirubin AST ALT Alkaline Phosphatase Total Protein Albumin Globulin Albumin/Globulin Ratio Venous Blood Potassium Urine Color Urine Clarity Urine pH Ur Specific [place] Urine Protein Urine Glucose (UA) Urine Ketones Urine Blood Urine Nitrate Urine Bilirubin Urine Urobilinogen Ur Leukocyte Esterase Urine RBC (Auto) Urine Microscopic WBC Ur Squamous Epith Cells Urine Bacteria Influenza Typ A,B (EIA) Assessment & Plan - Assessment and Plan (Free Text) Assessment: Assessment: 67 y/o female with pmhx of COPD, sys/leigh CHF, HTN, hx breast CA and multiple other co-morbidities presented to ED from [facility] for evaluation of fever, cough and abnormal blood work. Patient is admitted for septic shock and possible pneumonia. Plan: Admit to Telemetry Continue with gentle IV fluids with KCl Continue with Vancomycin 1 gm ivp q12h Continue with zosyn 4.5 gm q6hrs ID consult resume [facility] medications except for bp meds DVT prophylaxis: scd's for now Patient seen and examined this AM with Dr. Tierney Salazar, pgy-2 <Cristhian Monet - Last Filed: 02/08/18 20:34> Results - Vital Signs Recent Vital Signs: Last Vital Signs Temp 97.8 F 02/08/18 19:45 Pulse 101 H 02/08/18 19:45 Resp 20 02/08/18 19:45 BP 87/45 L 02/08/18 19:45 Pulse Ox 90 L 02/08/18 19:45 - Labs Result Diagrams: 02/08/18 00:40 02/08/18 08:30 Labs: Laboratory Results - last 24 hr 02/07/18 02/08/18 02/08/18 23:31 00:40 00:40 WBC 25.9 H D RBC 3.78 L Hgb 9.9 L Hct 32.6 L MCV 86.2 D MCH 26.1 L MCHC 30.2 L RDW 21.0 H Plt Count 347 MPV 7.3 Neut % (Auto) 85.5 H Lymph % (Auto) 5.2 L [place] % (Auto) 8.9 Eos % (Auto) 0.1 Baso % (Auto) 0.3 Neut # (Auto) 22.2 H Lymph # (Auto) 1.3 [place] # (Auto) 2.3 H Eos # (Auto) 0.0 Baso # (Auto) 0.1 Neutrophils % (Manual) 87 H Band Neutrophils % 1 Lymphocytes % (Manual) 5 L Monocytes % (Manual) 7 Platelet Estimate Normal Large Platelets Present Anisocytosis (manual) Slight PT INR APTT pO2 VBG pH VBG pCO2 VBG HCO3 VBG Total CO2 VBG O2 Sat (Calc) VBG Base Excess VBG Potassium Glucose Lactate FiO2 Sodium 134 Potassium 2.6 L Chloride 99 Carbon Dioxide 27 Anion Gap 11 BUN 7 Creatinine 0.5 L Est GFR ( Amer) > 60 Est GFR (Non-Af Amer) > 60 POC Glucose (mg/dL) 66 Random Glucose 72 Hemoglobin A1c Lactic Acid Calcium 7.7 L Phosphorus 3.4 Magnesium 1.7 Total Bilirubin 0.7 AST 62 H D ALT 52 D Alkaline Phosphatase 251 H D Total Protein 5.0 L Albumin 2.1 L D Globulin 2.9 Albumin/Globulin Ratio 0.7 L Procalcitonin Venous Blood Potassium Urine Color Urine Clarity Urine pH Ur Specific [place] Urine Protein Urine Glucose (UA) Urine Ketones Urine Blood Urine Nitrate Urine Bilirubin Urine Urobilinogen Ur Leukocyte Esterase Urine RBC (Auto) Urine Microscopic WBC Ur Squamous Epith Cells Urine Bacteria Influenza Typ A,B (EIA) 02/08/18 02/08/18 02/08/18 00:40 01:02 02:00 WBC RBC Hgb Hct MCV MCH MCHC RDW Plt Count MPV Neut % (Auto) Lymph % (Auto) [place] % (Auto) Eos % (Auto) Baso % (Auto) Neut # (Auto) Lymph # (Auto) [place] # (Auto) Eos # (Auto) Baso # (Auto) Neutrophils % (Manual) Band Neutrophils % Lymphocytes % (Manual) Monocytes % (Manual) Platelet Estimate Large Platelets Anisocytosis (manual) PT 19.2 H INR 1.7 APTT 36.5 pO2 60 H VBG pH 7.37 VBG pCO2 50 VBG HCO3 26.8 VBG Total CO2 30.4 H VBG O2 Sat (Calc) 93.9 H VBG Base Excess 2.7 H VBG Potassium 2.6 L Glucose 70 Lactate 0.9 FiO2 21.0 Sodium 132.0 Potassium Chloride 97.0 L Carbon Dioxide Anion Gap BUN Creatinine Est GFR ( Amer) Est GFR (Non-Af Amer) POC Glucose (mg/dL) Random Glucose Hemoglobin A1c Lactic Acid Calcium Phosphorus Magnesium 1.7 Total Bilirubin AST ALT Alkaline Phosphatase Total Protein Albumin Globulin Albumin/Globulin Ratio Procalcitonin Venous Blood Potassium 2.6 L Urine Color Urine Clarity Urine pH Ur Specific [place] Urine Protein Urine Glucose (UA) Urine Ketones Urine Blood Urine Nitrate Urine Bilirubin Urine Urobilinogen Ur Leukocyte Esterase Urine RBC (Auto) Urine Microscopic WBC Ur Squamous Epith Cells Urine Bacteria Influenza Typ A,B (EIA) 02/08/18 02/08/18 02/08/18 02:25 03:29 03:55 WBC RBC Hgb Hct MCV MCH MCHC RDW Plt Count MPV Neut % (Auto) Lymph % (Auto) [place] % (Auto) Eos % (Auto) Baso % (Auto) Neut # (Auto) Lymph # (Auto) [place] # (Auto) Eos # (Auto) Baso # (Auto) Neutrophils % (Manual) Band Neutrophils % Lymphocytes % (Manual) Monocytes % (Manual) Platelet Estimate Large Platelets Anisocytosis (manual) PT INR APTT pO2 32 VBG pH 7.30 L VBG pCO2 56 VBG HCO3 23.8 VBG Total CO2 29.3 H VBG O2 Sat (Calc) 55.3 VBG Base Excess 0.1 VBG Potassium 4.4 Glucose 50 L Lactate 0.7 FiO2 21.0 Sodium 134.0 Potassium Chloride 103.0 Carbon Dioxide Anion Gap BUN Creatinine Est GFR ( Amer) Est GFR (Non-Af Amer) POC Glucose (mg/dL) Random Glucose Hemoglobin A1c Lactic Acid Calcium Phosphorus Magnesium Total Bilirubin AST ALT Alkaline Phosphatase Total Protein Albumin Globulin Albumin/Globulin Ratio Procalcitonin Venous Blood Potassium 4.4 Urine Color Yellow Urine Clarity Cloudy Urine pH 6.0 Ur Specific [place] 1.015 Urine Protein 30 Urine Glucose (UA) Neg Urine Ketones 20 Urine Blood Negative Urine Nitrate Negative Urine Bilirubin Negative Urine Urobilinogen 4.0 H Ur Leukocyte Esterase Neg Urine RBC (Auto) 5 H Urine Microscopic WBC 9 H Ur Squamous Epith Cells 3 Urine Bacteria Rare Influenza Typ A,B (EIA) Negative for flu a/b 02/08/18 02/08/18 02/08/18 04:12 06:40 07:51 WBC RBC Hgb Hct MCV MCH MCHC RDW Plt Count MPV Neut % (Auto) Lymph % (Auto) [place] % (Auto) Eos % (Auto) Baso % (Auto) Neut # (Auto) Lymph # (Auto) [place] # (Auto) Eos # (Auto) Baso # (Auto) Neutrophils % (Manual) Band Neutrophils % Lymphocytes % (Manual) Monocytes % (Manual) Platelet Estimate Large Platelets Anisocytosis (manual) PT INR APTT pO2 VBG pH VBG pCO2 VBG HCO3 VBG Total CO2 VBG O2 Sat (Calc) VBG Base Excess VBG Potassium Glucose Lactate FiO2 Sodium Potassium Chloride Carbon Dioxide Anion Gap BUN Creatinine Est GFR ( Amer) Est GFR (Non-Af Amer) POC Glucose (mg/dL) 55 L 64 L Random Glucose Hemoglobin A1c 4.9 Lactic Acid Calcium Phosphorus Magnesium Total Bilirubin AST ALT Alkaline Phosphatase Total Protein Albumin Globulin Albumin/Globulin Ratio Procalcitonin Venous Blood Potassium Urine Color Urine Clarity Urine pH Ur Specific [place] Urine Protein Urine Glucose (UA) Urine Ketones Urine Blood Urine Nitrate Urine Bilirubin Urine Urobilinogen Ur Leukocyte Esterase Urine RBC (Auto) Urine Microscopic WBC Ur Squamous Epith Cells Urine Bacteria Influenza Typ A,B (EIA) 02/08/18 02/08/18 02/08/18 08:27 08:30 09:01 WBC RBC Hgb Hct MCV MCH MCHC RDW Plt Count MPV Neut % (Auto) Lymph % (Auto) [place] % (Auto) Eos % (Auto) Baso % (Auto) Neut # (Auto) Lymph # (Auto) [place] # (Auto) Eos # (Auto) Baso # (Auto) Neutrophils % (Manual) Band Neutrophils % Lymphocytes % (Manual) Monocytes % (Manual) Platelet Estimate Large Platelets Anisocytosis (manual) PT INR APTT pO2 VBG pH VBG pCO2 VBG HCO3 VBG Total CO2 VBG O2 Sat (Calc) VBG Base Excess VBG Potassium Glucose Lactate FiO2 Sodium 136 Potassium 3.2 L Chloride 107 Carbon Dioxide 25 Anion Gap 7 L BUN 6 L Creatinine 0.4 L Est GFR ( Amer) > 60 Est GFR (Non-Af Amer) > 60 POC Glucose (mg/dL) Random Glucose 59 L Hemoglobin A1c Lactic Acid 0.6 L Calcium 6.9 L Phosphorus Magnesium Total Bilirubin AST ALT Alkaline Phosphatase Total Protein Albumin Globulin Albumin/Globulin Ratio Procalcitonin 1.41 H Venous Blood Potassium Urine Color Urine Clarity Urine pH Ur Specific [place] Urine Protein Urine Glucose (UA) Urine Ketones Urine Blood Urine Nitrate Urine Bilirubin Urine Urobilinogen Ur Leukocyte Esterase Urine RBC (Auto) Urine Microscopic WBC Ur Squamous Epith Cells Urine Bacteria Influenza Typ A,B (EIA) Assessment & Plan - Assessment and Plan (Free Text) Assessment: Patient was personally seen and examined by me in rounds with residents. Available labs and diagnostic data reviewed. Case, Patient's condition and management plan discussed with residents in rounds. Agree with resident's progress note. Plan: As ordered.
--- NOTE | 2018-02-08 08:00 | CARD ---
APPROVED REPORT Date of service: 02/08/2018 EKG Measurement Heart [id number] <Conclusion> Sinus tachycardia Nonspecific T wave abnormality Abnormal ECG
--- NOTE | 2018-02-08 08:50 | RAD ---
Date of service: 02/08/2018 HISTORY: Sepsis Patient COMPARISON: 12/26/2017 FINDINGS: LUNGS: The medial right bronchovascular markings are prominent and similar. Chronic peribronchial inflammatory changes here are a consideration. Concomitant mild bronchiectasis here possible crowding per lower lung volumes also compatible with this No interval consolidation. PLEURA: No significant pleural effusion identified, no pneumothorax apparent. CARDIOVASCULAR: Top-normal heart size. Atherosclerotic vascular calcifications present. OSSEOUS STRUCTURES: Proximal right humerus inferred as resected with altered mid to distal humeral mineralization findings similar. Anterior cervical fusion hardware plate-similar. Left shoulder orthopedic anchor similar Thoracic spondylosis-similar VISUALIZED UPPER ABDOMEN: Normal. OTHER FINDINGS: Bilateral axillary lymph node dissection clips present IMPRESSION: No interval pathology noted. Other findings as above.
[2018-02-08 09:09] LABS: BLOOD UREA NITROGEN 6 mg/dl (7-17); CALCIUM 6.9 mg/dL (8.4-10.2); GFR NON-AFRICAN AMERICAN > 60
[2018-02-08] MEDS: Saccharomyces Boulardi 250 mg Cap PO SCH (09:28)
[2018-02-08] MEDS: Piperacillin/Tazobact 4.5 GM in Sodium Chloride 0.9% 100 ML IVPB SCH ×2 (09:33→18:10)
[2018-02-08] MEDS ORDERED: Sodium Chloride 3% for Inhalation 4 ML VIAL.NEB IH PRN (09:44)
--- NOTE | 2018-02-08 09:45 | CP.PCM.CON ---
History of Present Illness - History of Present Illness History of Present Illness: This 67-year-old female who suffers from severe chronic obstructive pulmonary disease presented to the emergency department, transferred from subacute rehabilitation where she had been for the past one month. She claims to have developed fever the day before transfer of 102 and has noted increased cough and congestion, but inability to expectorate. When seen in the emergency department she was noted to be tachycardic and mildly hypotensive with leukocytosis of greater than 25,000 and a venous blood gas analysis showing a normal pH with relatively normal oxygen saturation and a lactate of 0.9. A chest x-ray did show a clear right lung but the left lower lobe shows an indistinct diaphragm and a double retrocardiac density. She was admitted for possible pneumonia and placed on antibiotics in the form of Zosyn and vancomycin. She has had multiple hospitalizations because of pneumonia and exacerbation of COPD and had one episode of sepsis which required a prolonged ICU stay during which she was intubated and ultimately had tracheostomy performed. She recovered from that episode and was decannulated without incident. Her most recent hospitalization prior to this was in November of this year at which time she had an exacerbation of her COPD with some element of diastolic congestive cardiac failure. During that hospitalization she did develop a left lower lobe pneumonia Klebsiella pneumoniae which was multidrug resistant an extended spectrum beta-lactamase positive requiring the use of meropenem. She did have a clear CT scan of the thorax done prior to discharge to subacute rehabilitation. Review of Systems - Review of Systems All systems: reviewed and no additional remarkable complaints except - Constitutional Constitutional: Anorexia, Fever, Weakness - Respiratory Respiratory: Cough, Dyspnea on Exertion, Chest Congestion - Musculoskeletal Musculoskeletal: Muscle Weakness - Integumentary Integumentary: Swelling (Chronic lymphedema right upper extremity.) Past Patient History - Infectious Disease Hx of Infectious Diseases: None - Tetanus Immunizations Tetanus Immunization: Unknown - Past Medical History & Family History Past Medical History?: Yes - Past Social History Smoking Status: Former Smoker Chewing Tobacco Use: No Cigar Use: No Alcohol: None Drugs: Denies Home Situation {Lives}: Other (Subacute rehabilitation) - CARDIAC Hx Congestive Heart Failure: Yes (Diastolic) Hx Hypertension: Yes - PULMONARY Hx Chronic Obstructive Pulmonary Disease (COPD): Yes Hx Pneumonia: Yes Other/Comment: Pleural effusion - NEUROLOGICAL Other/Comment: Peripheral neuropathy - HEENT Other/Comment: Buccal abscess/osteo of mandible - RENAL Hx Chronic Kidney Disease: No - ENDOCRINE/METABOLIC Hx Hyperthyroidism: Yes - HEMATOLOGICAL/ONCOLOGICAL Hx Anemia: Yes Hx Cancer: Yes (breast) Hx Human Immunodeficiency Virus (HIV): No - INTEGUMENTARY Hx Cellulitis: Yes (recurring RUE) Other/Comment: Chronic lymphedema right upper extremity - MUSCULOSKELETAL/RHEUMATOLOGICAL Hx Arthritis: Yes Hx Falls: Yes (5 months ago) Hx Fractures: Yes Hx Osteoporosis: Yes - GASTROINTESTINAL Hx Clostridium Difficile: Yes Hx Gall Bladder Disease: Yes - GENITOURINARY/GYNECOLOGICAL Hx Genitourinary Disorders: No - PSYCHIATRIC Hx Anxiety: Yes Hx Substance Use: No - SURGICAL HISTORY Hx Mastectomy: Yes (right in 1998; left in 2008) Hx Orthopedic Surgery: Yes (2003 rigtht shoulder prosthesis, removal of hardware 2013) Hx Tubal Ligation: Yes Other/Comment: shoulder and humerous replacement with joint space infection and eventual removal of hardware in right shoulder and chronic lymphedema of RUE, groin cyst removal, cervical spinal fusion 2007, lumbar spinal fusion 2007. Tracheostomy. - ANESTHESIA Hx Anesthesia: Yes Hx Anesthesia Reactions: No Hx Malignant Hyperthermia: No Meds Allergies/Adverse Reactions: Allergies Allergy/AdvReac Type Severity Reaction Status Date / Time paper tape Allergy RASH Uncoded 02/08/18 02:36 - Medications Medications: Current Medications Acetaminophen (Tylenol 325mg Tab) 650 mg PO Q6 PRN PRN Reason: Pain, Mild (1-3)/headache Acetazolamide (Diamox 250 Mg Tab) 250 mg PO BID [facility] Last Admin: 02/08/18 09:28 Dose: 250 mg Acetylcysteine (Acetylcysteine 20%) 2 ml INH RBID [facility] Albuterol Sulfate (Albuterol 0.083% Inhal Ayb (2.5 Mg/3 Ml) Ud) 2.5 mg INH RQ4 PRN PRN Reason: Shortness of Breath Albuterol/Ipratropium (Duoneb 3 Mg/0.5 Mg (3 Ml) Ud) 3 ml INH RQID [facility] Anastrozole (Arimidex 1 Mg Tab) 1 mg PO DAILY [facility] Aspirin (Aspirin Chewable) 81 mg PO DAILY [facility] Last Admin: 02/08/18 09:28 Dose: 81 mg Atorvastatin Calcium (Lipitor) 40 mg PO HS [facility] Gabapentin (Neurontin) 600 mg PO Q8 [facility] Last Admin: 02/08/18 09:31 Dose: 600 mg Sodium Chloride (Sodium Chloride 0.9%) 1,000 mls @ 200 mls/hr IV .Q5H [facility] Stop: 02/09/18 00:28 Last Admin: 02/08/18 02:47 Dose: 200 mls/hr Vancomycin HCl 1 gm/ Sodium (Chloride) 250 mls @ 166.667 mls/hr IVPB Q12 [facility]; Protocol Last Admin: 02/08/18 09:32 Dose: 166.667 mls/hr Piperacillin Sod/Tazobactam (Sod 4.5 gm/ Sodium Chloride) 100 mls @ 100 mls/hr IVPB Q8 [facility]; Protocol Last Admin: 02/08/18 09:33 Dose: 100 mls/hr Influenza Virus Vaccine (Fluzone High-Dose(65yr Up)Pf) 180 mcg IM .ONCE ONE Stop: 02/08/18 10:01 Last Admin: 02/08/18 09:29 Dose: 180 mcg Saccharomyces Boulardii (Florastor) 250 mg PO DAILY [facility] Last Admin: 02/08/18 09:28 Dose: 250 mg Physical Exam - Additional Findings Additional findings: Thin, chronically ill-appearing female, awake and alert and oriented. Speech is fluent and memory is intact. Conjunctivae are pink and there is no scleral icterus. Nares are patent bilaterally. No bleeding or exudate. Pharynx is pink and mucous membranes are moist. No exudate. Neck is supple and trachea is midline. No neck vein distention or carotid bruit. Dullness to percussion is noted at the left base posteriorly. Breath sounds are diminished bilaterally with scattered sonorous rhonchi. No audible wheezing is appreciated. Bronchial breath sounds are heard at the left base posteriorly. Scattered dry rales are present in the lower lobes bilaterally. Heart sounds are distant rhythm is regular and mildly tachycardic. Chronic edema of the right upper extremity is noted without erythema. No dependent edema of the lower extremities. Scattered resolving ecchymoses over the lower extremities bilaterally. No cyanosis. No calf tenderness. No palpable venous cords. Results - Vital Signs Recent Vital Signs: Last Vital Signs Temp 97.7 F 02/08/18 08:41 Pulse 64 02/08/18 08:41 Resp 20 02/08/18 08:41 BP 92/49 L 10/03/18 08:41 Pulse Ox 99 02/08/18 08:41 - Labs Result Diagrams: 02/10/18 04:25 02/09/18 05:18 Labs: Laboratory Results - last 24 hr 02/07/18 02/08/18 02/08/18 23:31 00:40 00:40 WBC 25.9 H D RBC 3.78 L Hgb 9.9 L Hct 32.6 L MCV 86.2 D MCH 26.1 L MCHC 30.2 L RDW 21.0 H Plt Count 347 MPV 7.3 Neut % (Auto) 85.5 H Lymph % (Auto) 5.2 L [place] % (Auto) 8.9 Eos % (Auto) 0.1 Baso % (Auto) 0.3 Neut # (Auto) 22.2 H Lymph # (Auto) 1.3 [place] # (Auto) 2.3 H Eos # (Auto) 0.0 Baso # (Auto) 0.1 Neutrophils % (Manual) 87 H Band Neutrophils % 1 Lymphocytes % (Manual) 5 L Monocytes % (Manual) 7 Platelet Estimate Normal Large Platelets Present Anisocytosis (manual) Slight PT INR APTT pO2 VBG pH VBG pCO2 VBG HCO3 VBG Total CO2 VBG O2 Sat (Calc) VBG Base Excess VBG Potassium Glucose Lactate FiO2 Sodium 134 Potassium 2.6 L Chloride 99 Carbon Dioxide 27 Anion Gap 11 BUN 7 Creatinine 0.5 L Est GFR ( Amer) > 60 Est GFR (Non-Af Amer) > 60 POC Glucose (mg/dL) 66 Random Glucose 72 Lactic Acid Calcium 7.7 L Phosphorus 3.4 Magnesium 1.7 Total Bilirubin 0.7 AST 62 H D ALT 52 D Alkaline Phosphatase 251 H D Total Protein 5.0 L Albumin 2.1 L D Globulin 2.9 Albumin/Globulin Ratio 0.7 L Venous Blood Potassium Urine Color Urine Clarity Urine pH Ur Specific [place] Urine Protein Urine Glucose (UA) Urine Ketones Urine Blood Urine Nitrate Urine Bilirubin Urine Urobilinogen Ur Leukocyte Esterase Urine RBC (Auto) Urine Microscopic WBC Ur Squamous Epith Cells Urine Bacteria Influenza Typ A,B (EIA) 02/08/18 02/08/18 02/08/18 00:40 01:02 02:00 WBC RBC Hgb Hct MCV MCH MCHC RDW Plt Count MPV Neut % (Auto) Lymph % (Auto) [place] % (Auto) Eos % (Auto) Baso % (Auto) Neut # (Auto) Lymph # (Auto) [place] # (Auto) Eos # (Auto) Baso # (Auto) Neutrophils % (Manual) Band Neutrophils % Lymphocytes % (Manual) Monocytes % (Manual) Platelet Estimate Large Platelets Anisocytosis (manual) PT 19.2 H INR 1.7 APTT 36.5 pO2 60 H VBG pH 7.37 VBG pCO2 50 VBG HCO3 26.8 VBG Total CO2 30.4 H VBG O2 Sat (Calc) 93.9 H VBG Base Excess 2.7 H VBG Potassium 2.6 L Glucose 70 Lactate 0.9 FiO2 21.0 Sodium 132.0 Potassium Chloride 97.0 L Carbon Dioxide Anion Gap BUN Creatinine Est GFR ( Amer) Est GFR (Non-Af Amer) POC Glucose (mg/dL) Random Glucose Lactic Acid Calcium Phosphorus Magnesium 1.7 Total Bilirubin AST ALT Alkaline Phosphatase Total Protein Albumin Globulin Albumin/Globulin Ratio Venous Blood Potassium 2.6 L Urine Color Urine Clarity Urine pH Ur Specific [place] Urine Protein Urine Glucose (UA) Urine Ketones Urine Blood Urine Nitrate Urine Bilirubin Urine Urobilinogen Ur Leukocyte Esterase Urine RBC (Auto) Urine Microscopic WBC Ur Squamous Epith Cells Urine Bacteria Influenza Typ A,B (EIA) 02/08/18 02/08/18 02/08/18 02:25 03:29 03:55 WBC RBC Hgb Hct MCV MCH MCHC RDW Plt Count MPV Neut % (Auto) Lymph % (Auto) [place] % (Auto) Eos % (Auto) Baso % (Auto) Neut # (Auto) Lymph # (Auto) [place] # (Auto) Eos # (Auto) Baso # (Auto) Neutrophils % (Manual) Band Neutrophils % Lymphocytes % (Manual) Monocytes % (Manual) Platelet Estimate Large Platelets Anisocytosis (manual) PT INR APTT pO2 32 VBG pH 7.30 L VBG pCO2 56 VBG HCO3 23.8 VBG Total CO2 29.3 H VBG O2 Sat (Calc) 55.3 VBG Base Excess 0.1 VBG Potassium 4.4 Glucose 50 L Lactate 0.7 FiO2 21.0 Sodium 134.0 Potassium Chloride 103.0 Carbon Dioxide Anion Gap BUN Creatinine Est GFR ( Amer) Est GFR (Non-Af Amer) POC Glucose (mg/dL) Random Glucose Lactic Acid Calcium Phosphorus Magnesium Total Bilirubin AST ALT Alkaline Phosphatase Total Protein Albumin Globulin Albumin/Globulin Ratio Venous Blood Potassium 4.4 Urine Color Yellow Urine Clarity Cloudy Urine pH 6.0 Ur Specific [place] 1.015 Urine Protein 30 Urine Glucose (UA) Neg Urine Ketones 20 Urine Blood Negative Urine Nitrate Negative Urine Bilirubin Negative Urine Urobilinogen 4.0 H Ur Leukocyte Esterase Neg Urine RBC (Auto) 5 H Urine Microscopic WBC 9 H Ur Squamous Epith Cells 3 Urine Bacteria Rare Influenza Typ A,B (EIA) Negative for flu a/b 02/08/18 02/08/18 02/08/18 04:12 06:40 08:30 WBC RBC Hgb Hct MCV MCH MCHC RDW Plt Count MPV Neut % (Auto) Lymph % (Auto) [place] % (Auto) Eos % (Auto) Baso % (Auto) Neut # (Auto) Lymph # (Auto) [place] # (Auto) Eos # (Auto) Baso # (Auto) Neutrophils % (Manual) Band Neutrophils % Lymphocytes % (Manual) Monocytes % (Manual) Platelet Estimate Large Platelets Anisocytosis (manual) PT INR APTT pO2 VBG pH VBG pCO2 VBG HCO3 VBG Total CO2 VBG O2 Sat (Calc) VBG Base Excess VBG Potassium Glucose Lactate FiO2 Sodium 136 Potassium 3.2 L Chloride 107 Carbon Dioxide 25 Anion Gap 7 L BUN 6 L Creatinine 0.4 L Est GFR ( Amer) > 60 Est GFR (Non-Af Amer) > 60 POC Glucose (mg/dL) 55 L 64 L Random Glucose 59 L Lactic Acid Calcium 6.9 L Phosphorus Magnesium Total Bilirubin AST ALT Alkaline Phosphatase Total Protein Albumin Globulin Albumin/Globulin Ratio Venous Blood Potassium Urine Color Urine Clarity Urine pH Ur Specific [place] Urine Protein Urine Glucose (UA) Urine Ketones Urine Blood Urine Nitrate Urine Bilirubin Urine Urobilinogen Ur Leukocyte Esterase Urine RBC (Auto) Urine Microscopic WBC Ur Squamous Epith Cells Urine Bacteria Influenza Typ A,B (EIA) 02/08/18 09:01 WBC RBC Hgb Hct MCV MCH MCHC RDW Plt Count MPV Neut % (Auto) Lymph % (Auto) [place] % (Auto) Eos % (Auto) Baso % (Auto) Neut # (Auto) Lymph # (Auto) [place] # (Auto) Eos # (Auto) Baso # (Auto) Neutrophils % (Manual) Band Neutrophils % Lymphocytes % (Manual) Monocytes % (Manual) Platelet Estimate Large Platelets Anisocytosis (manual) PT INR APTT pO2 VBG pH VBG pCO2 VBG HCO3 VBG Total CO2 VBG O2 Sat (Calc) VBG Base Excess VBG Potassium Glucose Lactate FiO2 Sodium Potassium Chloride Carbon Dioxide Anion Gap BUN Creatinine Est GFR ( Amer) Est GFR (Non-Af Amer) POC Glucose (mg/dL) Random Glucose Lactic Acid 0.6 L Calcium Phosphorus Magnesium Total Bilirubin AST ALT Alkaline Phosphatase Total Protein Albumin Globulin Albumin/Globulin Ratio Venous Blood Potassium Urine Color Urine Clarity Urine pH Ur Specific [place] Urine Protein Urine Glucose (UA) Urine Ketones Urine Blood Urine Nitrate Urine Bilirubin Urine Urobilinogen Ur Leukocyte Esterase Urine RBC (Auto) Urine Microscopic WBC Ur Squamous Epith Cells Urine Bacteria Influenza Typ A,B (EIA) Assessment & Plan (1) Pneumonia Status: Suspected Priority: High Comment: Suspected left lower lobe. (2) Sepsis Status: Acute Priority: High (3) Chronic hypercapnic respiratory failure Status: Chronic Priority: High (4) COPD (chronic obstructive pulmonary disease) Status: Chronic Priority: High (5) Hyperthyroidism Status: Chronic Priority: Medium (6) Lymphedema of arm Status: Chronic Priority: Medium - Assessment and Plan (Free Text) Plan: Continue current medical regimen including antibiotic choice. CT scan of the thorax to document presence of pulmonary infiltrates and/or pleural effusions. Infectious disease consultation requested. Inhalation therapy with bronchodilators as well as mucolytic agent. Chest physical therapy using Acapella. - Date & Time Date: 02/08/18 Time: 09:45
[2018-02-08] MEDS: Albuterol-Ipratrop 3 mg / 0.5 (3 ml) UD INH SCH ×3 (13:06→19:48)
[2018-02-08] MEDS ORDERED: Albuterol-Ipratrop 3 mg / 0.5 (3 ml) UD INH SCH (14:00)
--- NOTE | 2018-02-08 18:07 | CP.PCM.PN ---
Subjective - Date & Time of Evaluation Date of Evaluation: 02/08/18 Time of Evaluation: 18:05 - Subjective Subjective: I D NOTE PATIENT WELL KNOWN TO ME HAVE ADDED AMIKACIN/BIAXIN FOR MAC COVERAGE(ONLY PARTIAL) FULL CONSULT DICTATED) Objective - Vital Signs/Intake and Output Vital Signs (last 24 hours): Temp Pulse Resp BP Pulse Ox 97.8 F 95 H 18 96/56 L 97 02/08/18 15:40 02/08/18 15:40 02/08/18 15:40 02/08/18 15:40 02/08/18 15:40 - Medications Medications: Current Medications Acetaminophen (Tylenol 325mg Tab) 650 mg PO Q6 PRN PRN Reason: Pain, Mild (1-3)/headache Acetazolamide (Diamox 250 Mg Tab) 250 mg PO BID [facility] Last Admin: 02/08/18 09:28 Dose: 250 mg Acetylcysteine (Acetylcysteine 20%) 2 ml INH RBID [facility] Albuterol Sulfate (Albuterol 0.083% Inhal Aby (2.5 Mg/3 Ml) Ud) 2.5 mg INH RQ4 PRN PRN Reason: Shortness of Breath Albuterol/Ipratropium (Duoneb 3 Mg/0.5 Mg (3 Ml) Ud) 3 ml INH RQID [facility] Last Admin: 02/08/18 15:16 Dose: 3 ml Anastrozole (Arimidex 1 Mg Tab) 1 mg PO DAILY [facility] Last Admin: 02/08/18 10:01 Dose: 1 mg Aspirin (Aspirin Chewable) 81 mg PO DAILY [facility] Last Admin: 02/08/18 09:28 Dose: 81 mg Clarithromycin (Biaxin Filmtab) 250 mg PO Q12 [facility]; Protocol Gabapentin (Neurontin) 600 mg PO Q8 [facility] Last Admin: 02/08/18 09:31 Dose: 600 mg Sodium Chloride (Sodium Chloride 0.9%) 1,000 mls @ 200 mls/hr IV .Q5H [facility] Stop: 02/09/18 00:28 Last Admin: 02/08/18 02:47 Dose: 200 mls/hr Vancomycin HCl 1 gm/ Sodium (Chloride) 250 mls @ 166.667 mls/hr IVPB Q12 [facility]; Protocol Last Admin: 02/08/18 09:32 Dose: 166.667 mls/hr Piperacillin Sod/Tazobactam (Sod 4.5 gm/ Sodium Chloride) 100 mls @ 100 mls/hr IVPB Q8 [facility]; Protocol Last Admin: 02/08/18 09:33 Dose: 100 mls/hr Amikacin Sulfate 250 mg/ (Sodium Chloride) 101 mls @ 100.609 mls/hr IVPB Q24H [facility]; Protocol Saccharomyces Boulardii (Florastor) 250 mg PO DAILY [facility] Last Admin: 02/08/18 09:28 Dose: 250 mg - Labs Labs: 02/08/18 00:40 02/08/18 08:30 PT 19.2 Seconds (9.8-13.1) H 02/08/18 00:40 INR 1.7 02/08/18 00:40 APTT 36.5 Seconds (25.6-37.1) 02/08/18 00:40
[2018-02-08] MEDS ORDERED: Potassium Chloride 20 mEq 100 ML IVPB ONE (18:18)
[2018-02-08] MEDS: Acetylcysteine 20% Inhal Soln (4ml) INH SCH (19:48)
[2018-02-08] MEDS: Sodium Chloride 0.9% 1,000 ML IV SCH (21:04)
[2018-02-08] MEDS: Albuterol 0.083% Inhal Sol (2.5 mg/3 mL) UD INH PRN (22:50)
[2018-02-09] MEDS: Piperacillin/Tazobact 4.5 GM in Sodium Chloride 0.9% 100 ML IVPB SCH ×3 (02:58→17:26)
[2018-02-09] MEDS: Sodium Chloride 0.9% 1,000 ML IV SCH (05:35)
[2018-02-09 05:41] LABS: BLOOD UREA NITROGEN 5 mg/dl (7-17); CALCIUM 7.2 mg/dL (8.4-10.2); GFR NON-AFRICAN AMERICAN > 60
[2018-02-09 05:42] LABS: BASO % 0.5 % (0.0-2.0); EOS # 0.2 K/uL (0.0-0.7); EOS % 1.7 % (0.0-4.0); HEMOGLOBIN 8.8 g/dL (12.0-16.0); LYMPH # 0.9 K/uL (1.0-4.3); LYMPH % 9.4 % (20.0-40.0); MEAN CELL VOLUME 87.5 fl (81.0-99.0); MEAN CORPUSCULAR HEMOGLOBIN 27.1 pg (27.0-31.0); MEAN PLATELET VOLUME 7.2 fl (7.2-11.7); MONO % 10.4 % (0.0-10.0); NEUT # 7.4 K/uL (1.8-7.0); RBC 3.26 Mil/uL (3.80-5.20); WHITE BLOOD COUNT 9.5 K/uL (4.8-10.8)
[2018-02-09] MEDS ORDERED: Potassium Chloride 20 mEq/15 ml LIQ UD PO ONE (05:46)
[2018-02-09] MEDS: Potassium Chloride 20 mEq 100 ML IVPB SCH ×2 (06:43→09:10)
[2018-02-09] MEDS: Acetylcysteine 20% Inhal Soln (4ml) INH SCH ×2 (07:19→19:30)
[2018-02-09] MEDS: Albuterol-Ipratrop 3 mg / 0.5 (3 ml) UD INH SCH ×4 (07:19→19:30)
--- NOTE | 2018-02-09 08:54 | CP.PCM.PN ---
Subjective - Date & Time of Evaluation Date of Evaluation: 02/09/18 Time of Evaluation: 08:51 - Subjective Subjective: Transferred to private room because of diarrhea and r/o c dif status. Has remained afebrile since presentation, BP remains low normal. Patient relates feeling better this morning. No further diarrhea. Leukocytosis has resolved completely in 24 hrs. Blood sugar is low. Hypokalemic at 2.9 this morning. Hgb has dropped to 8.8; likely dilutional. Urine appears to NOT be a source of infection, although collected after vanco/zosyn was given. No CT chest done yesterday. Procalcitonin level 1.4 (elevated but < 2). Asleep, breathing comfortably, no coughing. Easily awakens, follows commands, oriented x 3. Pharynx is pink and moist, neck is supple, old trach scar well healed. No dullness of the anterior chest wall. Breath sounds are present equally in both lungs/diminished. Bronchial breathing and egophony present in BOTH lung bases posteriorly. No audible wheezes in either lung, dry lower lobe rales bilaterally. Heart sounds are distant, regular, slight tachycardia. Abdomen is soft and non-tender. Trace dependant edema w/o any cyanosis. RUE lymphedema status quo w/o erythema. It appears as though there is bilateral basal atelectasis (a likely source of the present infection). Good response to the present antibiotic regimen. Potassium supplements ongoing; consider K-phos to avoid hyperchloremia if needed. CT chest will hopefully be done today, continue current abx regimen in the meantime. Aerosol therapy with albuterol/ipratropium as well as BID acetylcysteine. Legionella/strep/mycoplasma Ag/Ab studies pending. Screen for C dif when able. Sputum culture has been collected. Reduce acetazolamide temporarily until BP recovers. Change diet to Heart Healthy-regular (remove sodium and CHO restrictions for now). Objective - Vital Signs/Intake and Output Vital Signs (last 24 hours): Temp Pulse Resp BP Pulse Ox 97.7 F 94 H 20 90/49 L 100 02/09/18 08:31 02/09/18 08:31 02/09/18 08:31 02/09/18 08:31 02/09/18 08:31 - Medications Medications: Current Medications Acetaminophen (Tylenol 325mg Tab) 650 mg PO Q6 PRN PRN Reason: Pain, Mild (1-3)/headache Last Admin: 02/08/18 23:22 Dose: 650 mg Acetazolamide (Diamox 250 Mg Tab) 250 mg PO BID [facility] Last Admin: 02/08/18 18:09 Dose: 250 mg Acetylcysteine (Acetylcysteine 20%) 2 ml INH RBID [facility] Last Admin: 02/09/18 07:19 Dose: 2 ml Albuterol Sulfate (Albuterol 0.083% Inhal Aby (2.5 Mg/3 Ml) Ud) 2.5 mg INH RQ4 PRN PRN Reason: Shortness of Breath Last Admin: 02/08/18 22:50 Dose: 2.5 mg Albuterol/Ipratropium (Duoneb 3 Mg/0.5 Mg (3 Ml) Ud) 3 ml INH RQID [facility] Last Admin: 02/09/18 07:19 Dose: 3 ml Anastrozole (Arimidex 1 Mg Tab) 1 mg PO DAILY [facility] Last Admin: 02/08/18 10:01 Dose: 1 mg Aspirin (Aspirin Chewable) 81 mg PO DAILY [facility] Last Admin: 02/08/18 09:28 Dose: 81 mg Clarithromycin (Biaxin Filmtab) 250 mg PO Q12 [facility]; Protocol Last Admin: 02/08/18 22:05 Dose: 250 mg Enoxaparin Sodium (Lovenox) 40 mg SC DAILY [facility]; Protocol Gabapentin (Neurontin) 600 mg PO Q8 [facility] Last Admin: 02/09/18 02:58 Dose: 600 mg Vancomycin HCl 1 gm/ Sodium (Chloride) 250 mls @ 166.667 mls/hr IVPB Q12 [facility]; Protocol Last Admin: 02/08/18 22:05 Dose: 166.667 mls/hr Piperacillin Sod/Tazobactam (Sod 4.5 gm/ Sodium Chloride) 100 mls @ 100 mls/hr IVPB Q8 [facility]; Protocol Last Admin: 02/09/18 02:58 Dose: 100 mls/hr Amikacin Sulfate 250 mg/ (Sodium Chloride) 101 mls @ 100.609 mls/hr IVPB 2000 [facility]; Protocol Last Admin: 02/08/18 20:59 Dose: 100.609 mls/hr Sodium Chloride (Sodium Chloride 0.9%) 1,000 mls @ 100 mls/hr IV .Q10H [facility] Stop: 02/09/18 18:35 Last Admin: 02/09/18 05:35 Dose: 100 mls/hr Potassium Chloride (Potassium Chloride 20 Meq/100 Ml) 100 mls @ 50 mls/hr IVPB Q2 [facility] Stop: 02/09/18 09:59 Last Admin: 02/09/18 06:43 Dose: 50 mls/hr Saccharomyces Boulardii (Florastor) 250 mg PO DAILY [facility] Last Admin: 02/08/18 09:28 Dose: 250 mg - Labs Labs: 02/09/18 05:18 02/09/18 05:18 PT 19.2 Seconds (9.8-13.1) H 02/08/18 00:40 INR 1.7 02/08/18 00:40 APTT 36.5 Seconds (25.6-37.1) 02/08/18 00:40
[2018-02-09] MEDS: Saccharomyces Boulardi 250 mg Cap PO SCH (09:09)
[2018-02-09] MEDS: Enoxaparin 40 mg Syringe SC SCH (09:13)
--- NOTE | 2018-02-09 09:55 | CP.PCM.PN ---
Addendum entered and electronically signed by Darren Olsen MD 02/10/18 22:21: Patient was seen and evaluated bedside . Chronically ill female lying in bed in NAD . With chest congestion , coughing spells and unable to expectorate . Has multiple episodes of watery BM BP on the low side and with hypoglycemia Blood Cx positive for gram positive cocci ID and pulmonary on consult Continue IV antibiotics nad breathing treatment Follow up sputum cx and final results from blood cx Changed fluids to D51/2 NS replace electrolytes and replace daily BMP in AM Original Note: Subjective - Date & Time of Evaluation Date of Evaluation: 02/09/18 Time of Evaluation: 09:49 - Subjective Subjective: 67 yo female seen and evaluated at bedside for abnormal labs, shortness of breath, and cough. Patient is AAOx3 and NAD. States that she is feeling better than yesterday but reports diarrhea. She recently was moved to her own room to r/o cdiff. Reports still SOB but states she was able to sleep last night and she is able to eat. She denies N/V/F/C. She denies any abdominal pain or chest pain. Objective - Vital Signs/Intake and Output Vital Signs (last 24 hours): Temp Pulse Resp BP Pulse Ox 97.7 F 94 H 20 90/49 L 100 02/09/18 08:31 02/09/18 08:31 02/09/18 08:31 02/09/18 08:31 02/09/18 08:31 - Medications Medications: Current Medications Acetaminophen (Tylenol 325mg Tab) 650 mg PO Q6 PRN PRN Reason: Pain, Mild (1-3)/headache Last Admin: 02/08/18 23:22 Dose: 650 mg Acetazolamide (Diamox 250 Mg Tab) 250 mg PO DAILY [facility] Acetylcysteine (Acetylcysteine 20%) 2 ml INH RBID [facility] Last Admin: 02/09/18 07:19 Dose: 2 ml Albuterol Sulfate (Albuterol 0.083% Inhal Aby (2.5 Mg/3 Ml) Ud) 2.5 mg INH RQ4 PRN PRN Reason: Shortness of Breath Last Admin: 02/08/18 22:50 Dose: 2.5 mg Albuterol/Ipratropium (Duoneb 3 Mg/0.5 Mg (3 Ml) Ud) 3 ml INH RQID [facility] Last Admin: 02/09/18 07:19 Dose: 3 ml Anastrozole (Arimidex 1 Mg Tab) 1 mg PO DAILY [facility] Last Admin: 02/09/18 09:07 Dose: 1 mg Aspirin (Aspirin Chewable) 81 mg PO DAILY [facility] Last Admin: 02/09/18 09:08 Dose: 81 mg Clarithromycin (Biaxin Filmtab) 250 mg PO Q12 [facility]; Protocol Last Admin: 02/08/18 22:05 Dose: 250 mg Enoxaparin Sodium (Lovenox) 40 mg SC DAILY [facility]; Protocol Last Admin: 02/09/18 09:13 Dose: 40 mg Gabapentin (Neurontin) 600 mg PO Q8 [facility] Last Admin: 02/09/18 09:09 Dose: 600 mg Vancomycin HCl 1 gm/ Sodium (Chloride) 250 mls @ 166.667 mls/hr IVPB Q12 [facility]; Protocol Last Admin: 02/08/18 22:05 Dose: 166.667 mls/hr Piperacillin Sod/Tazobactam (Sod 4.5 gm/ Sodium Chloride) 100 mls @ 100 mls/hr IVPB Q8 [facility]; Protocol Last Admin: 02/09/18 09:16 Dose: 100 mls/hr Amikacin Sulfate 250 mg/ (Sodium Chloride) 101 mls @ 100.609 mls/hr IVPB 2000 [facility]; Protocol Last Admin: 02/08/18 20:59 Dose: 100.609 mls/hr Sodium Chloride (Sodium Chloride 0.9%) 1,000 mls @ 100 mls/hr IV .Q10H [facility] Stop: 02/09/18 18:35 Last Admin: 02/09/18 05:35 Dose: 100 mls/hr Potassium Chloride (Potassium Chloride 20 Meq/100 Ml) 100 mls @ 50 mls/hr IVPB Q2 [facility] Stop: 02/09/18 09:59 Last Admin: 02/09/18 09:10 Dose: 50 mls/hr Saccharomyces Boulardii (Florastor) 250 mg PO DAILY [facility] Last Admin: 02/09/18 09:09 Dose: 250 mg - Labs Labs: 02/09/18 05:18 02/09/18 05:18 PT 19.2 Seconds (9.8-13.1) H 02/08/18 00:40 INR 1.7 02/08/18 00:40 APTT 36.5 Seconds (25.6-37.1) 02/08/18 00:40 - Constitutional Appears: Well, Non-toxic, No Acute Distress - Head Exam Head Exam: ATRAUMATIC, NORMOCEPHALIC - Eye Exam Eye Exam: EOMI, Normal appearance - ENT Exam ENT Exam: Mucous Membranes Moist, Normal Exam - Respiratory Exam Respiratory Exam: Rales, Rhonchi Additional comments: On [place] oxygen. No acute respiratory distress. - Cardiovascular Exam Cardiovascular Exam: REGULAR RHYTHM, RRR, +S1, +S2 - GI/Abdominal Exam GI & Abdominal Exam: Soft, Normal Bowel Sounds - Extremities Exam Extremities Exam: Normal Capillary Refill Additional comments: Chronic right UE edema Pedal pulses are present b/l No pitting or nonpitting appreciated to lower extremities - Neurological Exam Neurological Exam: Alert, Awake, Oriented x3 - Psychiatric Exam Psychiatric exam: Normal Affect, Normal Mood - Skin Skin Exam: Dry, Intact, Normal Color, Warm Assessment and Plan - Assessment and Plan (Free Text) Assessment: 67 y/o female with pmhx of COPD, sys/leigh CHF, HTN, hx breast CA and multiple other co-morbidities presented to ED from alf for evaluation of fever, cough and abnormal blood work. Patient is admitted for sepsis, possible pneumonia, and hypokalemia. Plan: 1. Sepsis - can be secondary to pneumonia/bacteremia - blood cx - preliminary gram positive cocci - afebrile - CXR - no interval changes - sepsis criteria met on admission - CT - awaiting read - from my interpretation right lower lobe pneumonia as compared to previous imaging - vancomycin 1gm IV Q12 - zosyn 4.5gm IV Q8 - amikacin sulfate 250mg IVPB - clarithromycin 250mg PO Q12 - procalcitonin 1.41 02/08, ordered serial for tomorrow AM 2. COPD - chronic, controlled - 2L NC - duoneb 3ml INH RQID - albuterol 2.5mg INH RQ4 PRN SOB - Dr. Benz consult appreciated - reduce acetazolamide temporarily until BP recovers; appears to be bilateral basal atelectasis (awaiting CT chest) 3. Hypokalemia - 02/08 3.2, 02/09 2.9 - KCl 20 Meq/100ml given 10/3, 20meq PO 02/09, 20meq/100ml bag 1 02/09 6:43, bag 2 9:10 4. Sys/leigh CHF - chronic, controlled -contine at home medication 5. HTN - chronic, controlled - continue at home medication 6. Breast cancer - chronic - Anastrozole 1mg PO daily 7. DVT prophylaxis - Lovenox 40mg SC daily
--- NOTE | 2018-02-09 12:10 | CT ---
Date of service: 02/09/2018 PROCEDURE: CT Chest without contrast HISTORY: pneumonia COMPARISON: Contrast chest CT 12/09/2017. TECHNIQUE: Contiguous axial images were obtained through the chest without intravenous contrast enhancement. Sagittal and coronal reconstructions were performed. Radiation dose (DLP): 420.77 mGy-cm. This CT exam was performed using one or more of the following dose reduction techniques: Automated exposure control, adjustment of the mA and/or kV according to patient size, and/or use of iterative reconstruction technique. FINDINGS: LUNGS: ExtensiveCOPD changes are reiterated including gross biapical centrilobular emphysematous changes greater than at the bases. Interval dense infiltrate is noted at the left lower lobe with extensive air bronchogram formation appreciated. There is no normal aeration of the left lower lobe which may indicate concomitant atelectasis although the left lower lobe bronchus only contains a minimal amount of mucoid material at the dependent portion as well as the left mainstem bronchus. Trace mucoid material is seen at the inferior most trachea above the dina. Further, limited probable atelectasis is seen at the right lower lobe dependent portion with minimal air bronchograms which may reflect an element of pneumonia here as well. There is likely some element of limited bilateral basilar dependent atelectasis as well as trace compressive atelectasis at the right. Minimal right pleural effusion is identified with even less at the left. No pneumothorax bilaterally. MEDIASTINUM: Unremarkable thoracic aorta. No aneurysm. Mild cardiomegaly. Main pulmonary artery unremarkable. No vascular congestion. Mild interval inferior paratracheal lymphadenopathy with the largest measuring 1.6 x 1.2 cm.. BONES: Severe multilevel degenerative inferior thoracolumbar spondylosis without acute fracture. Thoracolumbar scoliotic deformity noted. Incidental note is made of prior inferior cervical anterior spinal fusion. UPPER ABDOMEN: Grossly unremarkable. OTHER FINDINGS: None. IMPRESSION: 1. Dense left lower lobe pneumonia is appreciated with likely intermixed atelectasis but only minimal mucoid material identified at the left mainstem bronchus and inferior trachea. Minimal right lower lobe pneumonia is not excluded though dependent atelectasis and compression atelectasis felt to represent the majority of airspace disease at the right lower lobe. Minimal bilateral pleural effusions, right greater than left. 2. Mild cardiomegaly. 3. Advanced [employer] reiterated .
[2018-02-09] MEDS ORDERED: Potassium CL 10 MEQ/50 ML 50 ML IVPB SCH (14:00)
[2018-02-09] MEDS: Dextrose 5%/0.45% NS 1,000 ML IV SCH (22:16)
[2018-02-10] MEDS: Piperacillin/Tazobact 4.5 GM in Sodium Chloride 0.9% 100 ML IVPB SCH ×3 (00:50→18:12)
[2018-02-10 05:57] LABS: HEMOGLOBIN 8.6 g/dL (12.0-16.0); MEAN CELL VOLUME 94.1 fl (81.0-99.0); MEAN CORPUSCULAR HEMOGLOBIN 26.6 pg (27.0-31.0); MEAN CORPUSCULAR HGB CONC 28.3 g/dL (33.0-37.0); RBC 3.23 Mil/uL (3.80-5.20); RED CELL DISTRIBUTION WIDTH 22.2 % (11.5-14.5); WHITE BLOOD COUNT 10.3 K/uL (4.8-10.8)
[2018-02-10] MEDS: Albuterol-Ipratrop 3 mg / 0.5 (3 ml) UD INH SCH (08:10)
[2018-02-10] MEDS: Acetylcysteine 20% Inhal Soln (4ml) INH SCH ×2 (08:10→19:17)
[2018-02-10 09:27] LABS: ALB/GLOB RATIO 0.7 (1.0-2.1); ALBUMIN 1.8 g/dL (3.5-5.0); ALT/SGPT 48 U/L (9-52); AST/SGOT 58 U/L (14-36); BLOOD UREA NITROGEN 2 mg/dl (7-17); CALCIUM 7.3 mg/dL (8.4-10.2); GFR NON-AFRICAN AMERICAN > 60
[2018-02-10] MEDS: Enoxaparin 40 mg Syringe SC SCH (09:41)
[2018-02-10] MEDS: Saccharomyces Boulardi 250 mg Cap PO SCH (09:43)
[2018-02-10] MEDS: Dextrose 5%/0.45% NS 1,000 ML IV SCH ×2 (09:45→22:25)
[2018-02-10] MEDS ORDERED: Magnesium Sulfate 2 gm/50 ml 2 GM/50 ML BAG IVPB ONE (10:59)
--- NOTE | 2018-02-10 11:02 | CP.PCM.PN ---
Subjective - Date & Time of Evaluation Date of Evaluation: 02/10/18 Time of Evaluation: 11:02 - Subjective Subjective: Appears comfortable this morning. Had a normal BM this morning. BP remains 'low normal'. Remains afebrile. Mildly tachycardic, good oxygenation. WBC remains WNL, Hgb 8.6GM. Potassium remains low despite supplements. Magnesium level reported WNL. CT chest showed left lower lobe consolidation as well as right basal infiltrate and effusion. Patient has only occasional cough which is congested, but usually non- productive. Sputum gram stain; gm neg rods. Clinical findings are essentially the same with bibasal dullness and bronchial breath sounds + egophony. These findings remain more left than right in location. No wheezes are heard and only few scattered rales are appreciated in the lower lung corral. The abdomen is soft and non-tender with normal bowel sounds. There is some mild degree of dependant edema posterior trunk, but not the ankles. No cyanosis or calf tenderness. Bibasal pneumonia with consolidation and right pleural effusion (small). Hypokalemia, persistent despite supplementation. COPD-stable. Anemia. Elevated alkaline phosphatase. Alk phos isoenzymes. Bone scan. CPT plus aerosol therapy. Await sputum ID: last culture was Klebs (MDR). Supplement magnesium (despite nl level). Potassium supplement. Check TSH level. D/C albuterol and use ipratropium alone with prn beta agonist. Objective - Vital Signs/Intake and Output Vital Signs (last 24 hours): Temp Pulse Resp BP Pulse Ox 97.8 F 93 H 18 93/60 L 95 02/10/18 08:46 02/10/18 08:46 02/10/18 08:46 02/10/18 08:46 02/10/18 08:46 Intake and Output: 02/09/18 02/10/18 23:59 11:59 Intake Total 1929 Balance 1929 - Medications Medications: Current Medications Acetaminophen (Tylenol 325mg Tab) 650 mg PO Q6 PRN PRN Reason: Pain, Mild (1-3)/headache Last Admin: 02/08/18 23:22 Dose: 650 mg Acetazolamide (Diamox 250 Mg Tab) 250 mg PO DAILY [facility] Last Admin: 02/10/18 09:40 Dose: 250 mg Acetylcysteine (Acetylcysteine 20%) 2 ml INH RBID [facility] Last Admin: 02/10/18 08:10 Dose: 2 ml Albuterol Sulfate (Albuterol 0.083% Inhal Aby (2.5 Mg/3 Ml) Ud) 2.5 mg INH RQ4 PRN PRN Reason: Shortness of Breath Last Admin: 02/08/18 22:50 Dose: 2.5 mg Anastrozole (Arimidex 1 Mg Tab) 1 mg PO DAILY [facility] Last Admin: 02/10/18 09:42 Dose: 1 mg Aspirin (Aspirin Chewable) 81 mg PO DAILY [facility] Last Admin: 02/10/18 09:41 Dose: 81 mg Clarithromycin (Biaxin Filmtab) 250 mg PO Q12 [facility]; Protocol Last Admin: 02/10/18 09:42 Dose: 250 mg Enoxaparin Sodium (Lovenox) 40 mg SC DAILY [facility]; Protocol Last Admin: 02/10/18 09:41 Dose: 40 mg Gabapentin (Neurontin) 600 mg PO Q8 [facility] Last Admin: 02/10/18 09:41 Dose: 600 mg Vancomycin HCl 1 gm/ Sodium (Chloride) 250 mls @ 166.667 mls/hr IVPB Q12 [facility]; Protocol Last Admin: 02/10/18 09:56 Dose: 166.667 mls/hr Piperacillin Sod/Tazobactam (Sod 4.5 gm/ Sodium Chloride) 100 mls @ 100 mls/hr IVPB Q8 [facility]; Protocol Last Admin: 02/10/18 09:55 Dose: 100 mls/hr Amikacin Sulfate 250 mg/ (Sodium Chloride) 101 mls @ 100.609 mls/hr IVPB 2000 [facility]; Protocol Last Admin: 02/09/18 22:09 Dose: 100.609 mls/hr Dextrose/Sodium Chloride (Dextrose 5%/0.45% Ns 1000 Ml) 1,000 mls @ 100 mls/hr IV .Q10H [facility] Stop: 02/10/18 22:10 Last Admin: 02/10/18 09:45 Dose: Not Given Potassium Chloride (Potassium Chloride 20 Meq/100 Ml) 100 mls @ 50 mls/hr IVPB Q2 [facility] Stop: 02/10/18 15:59 Magnesium Sulfate 2 gm/ Sodium (Chloride) 104 mls @ 104 mls/hr IVPB ONCE ONE Stop: 02/10/18 11:58 Ipratropium [place] (Atrovent) 0.5 mg IH QID [facility] Potassium Chloride (Potassium Chloride Oral Soln) 40 meq PO DAILY [facility] Saccharomyces Boulardii (Florastor) 250 mg PO DAILY [facility] Last Admin: 02/10/18 09:43 Dose: 250 mg - Labs Labs: 02/10/18 04:25 02/10/18 08:40 PT 19.2 Seconds (9.8-13.1) H 02/08/18 00:40 INR 1.7 02/08/18 00:40 APTT 36.5 Seconds (25.6-37.1) 02/08/18 00:40 Assessment and Plan (1) Pneumonia Status: Suspected (2) Sepsis Status: Acute (3) Chronic hypercapnic respiratory failure Status: Chronic (4) COPD (chronic obstructive pulmonary disease) Status: Chronic (5) Hyperthyroidism Status: Chronic (6) Lymphedema of arm Status: Chronic
[2018-02-10] MEDS: Ipratropium 0.02% Inhal Soln (0.5 mg/2.5 ml) UD IH SCH ×3 (11:45→19:18)
[2018-02-10] MEDS: Potassium Chloride 20 mEq/15 ml LIQ UD PO SCH (11:47)
[2018-02-10] MEDS: Potassium Chloride 20 mEq 100 ML IVPB SCH ×2 (12:05→15:02)
[2018-02-10 12:38] LABS: IRON 36 ug/dL (37-170)
[2018-02-10 12:48] LABS: % IRON SATURATION 25 % (20-55); TOTAL IRON BINDING CAPACITY 143 ug/dL (250-450)
--- NOTE | 2018-02-10 12:50 | CP.PCM.PN ---
Addendum entered and electronically signed by Darren Olsen MD 02/10/18 22:27: Patient was seen and evaluated bedside . All chart and clinical data reviewed . Case discussed with resident . Agree with assessment and plan. Feeling better today with no more diarrhea. Breathing seems to be her baseline with chest congestion , unable to expectorate. BP still on the lower side Blood cx positive for Staph aureus and Corynobacter species Sputum Cx positive for gram negative aryan C.diff - negative CT chest showed bibasilar pneumonia Bone scan showed no metastatic disease ID and pulmonary on board Continue Vanco , Zosyn , Amikacin and Clarithromycin Continue current management Original Note: Subjective - Date & Time of Evaluation Date of Evaluation: 02/10/18 Time of Evaluation: 12:48 - Subjective Subjective: 67 yo female seen and evaluated at bedside for abnormal labs, shortness of breath, and cough. Patient is AAOx3 and NAD. States that she is feeling well and her stool is no longer watery. She recently was moved to her own room to r/o [facility] and her first test came back negative. Reports still SOB but states she was able to sleep last night and she is able to eat. She denies N/V/F/C. She denies any abdominal pain or chest pain. Objective - Vital Signs/Intake and Output Vital Signs (last 24 hours): Temp Pulse Resp BP Pulse Ox 97.8 F 93 H 18 93/60 L 95 02/10/18 08:46 02/10/18 08:46 02/10/18 08:46 02/10/18 08:46 02/10/18 08:46 - Medications Medications: Current Medications Acetaminophen (Tylenol 325mg Tab) 650 mg PO Q6 PRN PRN Reason: Pain, Mild (1-3)/headache Last Admin: 02/08/18 23:22 Dose: 650 mg Acetazolamide (Diamox 250 Mg Tab) 250 mg PO DAILY [facility] Last Admin: 02/10/18 09:40 Dose: 250 mg Acetylcysteine (Acetylcysteine 20%) 2 ml INH RBID [facility] Last Admin: 02/10/18 08:10 Dose: 2 ml Albuterol Sulfate (Albuterol 0.083% Inhal Aby (2.5 Mg/3 Ml) Ud) 2.5 mg INH RQ4 PRN PRN Reason: Shortness of Breath Last Admin: 02/08/18 22:50 Dose: 2.5 mg Anastrozole (Arimidex 1 Mg Tab) 1 mg PO DAILY [facility] Last Admin: 02/10/18 09:42 Dose: 1 mg Aspirin (Aspirin Chewable) 81 mg PO DAILY [facility] Last Admin: 02/10/18 09:41 Dose: 81 mg Clarithromycin (Biaxin Filmtab) 250 mg PO Q12 [facility]; Protocol Last Admin: 02/10/18 09:42 Dose: 250 mg Enoxaparin Sodium (Lovenox) 40 mg SC DAILY [facility]; Protocol Last Admin: 02/10/18 09:41 Dose: 40 mg Gabapentin (Neurontin) 600 mg PO Q8 [facility] Last Admin: 02/10/18 09:41 Dose: 600 mg Vancomycin HCl 1 gm/ Sodium (Chloride) 250 mls @ 166.667 mls/hr IVPB Q12 [facility]; Protocol Last Admin: 02/10/18 09:56 Dose: 166.667 mls/hr Piperacillin Sod/Tazobactam (Sod 4.5 gm/ Sodium Chloride) 100 mls @ 100 mls/hr IVPB Q8 [facility]; Protocol Last Admin: 02/10/18 09:55 Dose: 100 mls/hr Amikacin Sulfate 250 mg/ (Sodium Chloride) 101 mls @ 100.609 mls/hr IVPB 2000 [facility]; Protocol Last Admin: 02/09/18 22:09 Dose: 100.609 mls/hr Dextrose/Sodium Chloride (Dextrose 5%/0.45% Ns 1000 Ml) 1,000 mls @ 100 mls/hr IV .Q10H [facility] Stop: 02/10/18 22:10 Last Admin: 02/10/18 09:45 Dose: Not Given Potassium Chloride (Potassium Chloride 20 Meq/100 Ml) 100 mls @ 50 mls/hr IVPB Q2 [facility] Stop: 02/10/18 15:59 Last Admin: 02/10/18 12:05 Dose: 50 mls/hr Ipratropium [place] (Atrovent) 0.5 mg IH RQID [facility] Last Admin: 02/10/18 11:45 Dose: 0.5 mg Potassium Chloride (Potassium Chloride Oral Soln) 40 meq PO DAILY [facility] Last Admin: 02/10/18 11:47 Dose: 40 meq Saccharomyces Boulardii (Florastor) 250 mg PO DAILY [facility] Last Admin: 02/10/18 09:43 Dose: 250 mg - Labs Labs: 02/10/18 04:25 02/10/18 08:40 PT 19.2 Seconds (9.8-13.1) H 02/08/18 00:40 INR 1.7 02/08/18 00:40 APTT 36.5 Seconds (25.6-37.1) 02/08/18 00:40 - Constitutional Appears: Well, Non-toxic, No Acute Distress - Head Exam Head Exam: ATRAUMATIC, NORMOCEPHALIC - Eye Exam Eye Exam: EOMI, Normal appearance - ENT Exam ENT Exam: Mucous Membranes Moist, Normal Exam - Neck Exam Additional comments: Tracheotomy scar present - Respiratory Exam Respiratory Exam: Rales, Rhonchi - Cardiovascular Exam Cardiovascular Exam: REGULAR RHYTHM, +S1, +S2 - GI/Abdominal Exam GI & Abdominal Exam: Soft, Normal Bowel Sounds - Extremities Exam Extremities Exam: Normal Capillary Refill Additional comments: Chronic right UE edema Pedal pulses are present b/l No pitting or nonpitting appreciated to lower extremities - Neurological Exam Neurological Exam: Alert, Awake, Oriented x3 - Psychiatric Exam Psychiatric exam: Normal Affect, Normal Mood - Skin Skin Exam: Dry, Intact, Normal Color, Warm Assessment and Plan - Assessment and Plan (Free Text) Assessment: 67 y/o female with pmhx of COPD, sys/leigh CHF, HTN, hx breast CA and multiple other co-morbidities presented to ED from group home for evaluation of fever, cough and abnormal blood work. Patient is admitted for sepsis, pneumonia, and hypokalemia. Plan: 1. Sepsis - can be secondary to pneumonia/bacteremia - blood cx - preliminary gram positive cocci - afebrile - CXR - no interval changes - sepsis criteria met on admission - Chest CT - dense left lower lobe pneumonia appreciated likely intermixed atelectasis only minimal mucoid material at left mainstem bronchus and inferior trachea; minimal right lower lobe pneumonia not exclusded through dependent atelectasis and compression atelectasis felt to represent the majority of airspace disease at the right lower lobe; minimal bilateral pleural effusions, R>L - vancomycin 1gm IV Q12 - zosyn 4.5gm IV Q8 - amikacin sulfate 250mg IVPB - clarithromycin 250mg PO Q12 - procalcitonin 1.41 02/08, ordered serial for tomorrow AM 2. COPD - chronic, controlled - 2L NC - duoneb 3ml INH RQID - albuterol 2.5mg INH RQ4 PRN SOB - Dr. Benz consult appreciated - reduce acetazolamide temporarily until BP recovers; appears to be bilateral basal atelectasis 3. C. diff - r/o - C.diff Ag and toxin - negative 02/09 4. Hypokalemia - 02/08 3.2, 02/09 2.9 - KCl 20 Meq/100ml given 02/08, 20meq PO 02/09, 20meq/100ml bag 1 02/09 6:43, bag 2 9:10 5. Low blood pressure - asymptomatic -bolus 500 normal saline 02/10 ordered -Echo (November) - 60-65% EF -BUN 5, creat 0.4 (02/10) -will monitor for any changes 5. Sys/leigh CHF - chronic, controlled -contine at home medication 6. HTN - chronic, controlled - continue at home medication 7. Breast cancer - chronic - Anastrozole 1mg PO daily 8. DVT prophylaxis - Lovenox 40mg SC daily
--- NOTE | 2018-02-10 13:29 | CP.PCM.CON ---
History of Present Illness - History of Present Illness History of Present Illness: 67 y/o F patient with PMH of Chronic Respiratory Failure , CHF, COPD, bilateral breast CA, HTN, hyperthyroidism, anemia, SVT, osteoporosis, peripheral neuropathy, anxiety seen and evaluate maki the bedside for ingrowing toe nail at her right great toe. Patient stets that her toe nail start to get like this recently and it's painful. Patient states that she is admitted to the hospital cause she has fever. Her nurse states that she has also bactremia. Patient denies any other pedal complaints. Patient denies any overnight nausea or vomiting. PMHx: Chronic Respiratory Failure , CHF, COPD, bilateral breast CA, HTN, hyperthyroidism, anemia, SVT, osteoporosis, peripheral neuropathy, anxiety PSHx: bilateral mastectomies, shoulder surgeries, cervical and lumbar fusions, cholecystectomy, tubal ligation, groin cyst removal. Allergies: paper tape Social Hx: Patient is ex-smoker, quit smoking 2 years ago. Used smoke PPD X 56 yrs, denies EtOH or illicit drug use. Review of Systems - Review of Systems Review of Systems: As per HPI Past Patient History - Infectious Disease Hx of Infectious Diseases: None - Tetanus Immunizations Tetanus Immunization: Unknown - Past Medical History & Family History Past Medical History?: Yes - Past Social History Smoking Status: Former Smoker Chewing Tobacco Use: No Cigar Use: No Alcohol: None Drugs: Denies Home Situation {Lives}: Other (Subacute rehabilitation) - CARDIAC Hx Congestive Heart Failure: Yes (Diastolic) Hx Hypertension: Yes - PULMONARY Hx Chronic Obstructive Pulmonary Disease (COPD): Yes Hx Pneumonia: Yes Other/Comment: Pleural effusion - NEUROLOGICAL Other/Comment: Peripheral neuropathy - HEENT Other/Comment: Buccal abscess/osteo of mandible - RENAL Hx Chronic Kidney Disease: No - ENDOCRINE/METABOLIC Hx Hyperthyroidism: Yes - HEMATOLOGICAL/ONCOLOGICAL Hx Anemia: Yes Hx Cancer: Yes (breast) Hx Human Immunodeficiency Virus (HIV): No - INTEGUMENTARY Hx Cellulitis: Yes (recurring RUE) Other/Comment: Chronic lymphedema right upper extremity - MUSCULOSKELETAL/RHEUMATOLOGICAL Hx Arthritis: Yes Hx Falls: Yes (5 months ago) Hx Fractures: Yes Hx Osteoporosis: Yes - GASTROINTESTINAL Hx Clostridium Difficile: Yes Hx Gall Bladder Disease: Yes - GENITOURINARY/GYNECOLOGICAL Hx Genitourinary Disorders: No - PSYCHIATRIC Hx Anxiety: Yes Hx Substance Use: No - SURGICAL HISTORY Hx Mastectomy: Yes (right in 1998; left in 2008) Hx Orthopedic Surgery: Yes (2003 rigtht shoulder prosthesis, removal of hardware 2013) Hx Tubal Ligation: Yes Other/Comment: shoulder and humerous replacement with joint space infection and eventual removal of hardware in right shoulder and chronic lymphedema of RUE, groin cyst removal, cervical spinal fusion 2007, lumbar spinal fusion 2007. Tracheostomy. - ANESTHESIA Hx Anesthesia: Yes Hx Anesthesia Reactions: No Hx Malignant Hyperthermia: No Meds Allergies/Adverse Reactions: Allergies Allergy/AdvReac Type Severity Reaction Status Date / Time paper tape Allergy RASH Uncoded 02/08/18 02:36 - Medications Medications: Current Medications Acetaminophen (Tylenol 325mg Tab) 650 mg PO Q6 PRN PRN Reason: Pain, Mild (1-3)/headache Last Admin: 02/08/18 23:22 Dose: 650 mg Acetazolamide (Diamox 250 Mg Tab) 250 mg PO DAILY [facility] Last Admin: 02/10/18 09:40 Dose: 250 mg Acetylcysteine (Acetylcysteine 20%) 2 ml INH RBID [facility] Last Admin: 02/10/18 08:10 Dose: 2 ml Albuterol Sulfate (Albuterol 0.083% Inhal Aby (2.5 Mg/3 Ml) Ud) 2.5 mg INH RQ4 PRN PRN Reason: Shortness of Breath Last Admin: 02/08/18 22:50 Dose: 2.5 mg Anastrozole (Arimidex 1 Mg Tab) 1 mg PO DAILY [facility] Last Admin: 02/10/18 09:42 Dose: 1 mg Aspirin (Aspirin Chewable) 81 mg PO DAILY [facility] Last Admin: 02/10/18 09:41 Dose: 81 mg Clarithromycin (Biaxin Filmtab) 250 mg PO Q12 [facility]; Protocol Last Admin: 02/10/18 09:42 Dose: 250 mg Enoxaparin Sodium (Lovenox) 40 mg SC DAILY [facility]; Protocol Last Admin: 02/10/18 09:41 Dose: 40 mg Gabapentin (Neurontin) 600 mg PO Q8 [facility] Last Admin: 02/10/18 09:41 Dose: 600 mg Vancomycin HCl 1 gm/ Sodium (Chloride) 250 mls @ 166.667 mls/hr IVPB Q12 [facility]; Protocol Last Admin: 02/10/18 09:56 Dose: 166.667 mls/hr Piperacillin Sod/Tazobactam (Sod 4.5 gm/ Sodium Chloride) 100 mls @ 100 mls/hr IVPB Q8 [facility]; Protocol Last Admin: 02/10/18 09:55 Dose: 100 mls/hr Amikacin Sulfate 250 mg/ (Sodium Chloride) 101 mls @ 100.609 mls/hr IVPB 2000 [facility]; Protocol Last Admin: 02/09/18 22:09 Dose: 100.609 mls/hr Dextrose/Sodium Chloride (Dextrose 5%/0.45% Ns 1000 Ml) 1,000 mls @ 100 mls/hr IV .Q10H [facility] Stop: 02/10/18 22:10 Last Admin: 02/10/18 09:45 Dose: Not Given Potassium Chloride (Potassium Chloride 20 Meq/100 Ml) 100 mls @ 50 mls/hr IVPB Q2 [facility] Stop: 02/10/18 15:59 Last Admin: 02/10/18 12:05 Dose: 50 mls/hr Ipratropium [place] (Atrovent) 0.5 mg IH RQID [facility] Last Admin: 02/10/18 11:45 Dose: 0.5 mg Potassium Chloride (Potassium Chloride Oral Soln) 40 meq PO DAILY [facility] Last Admin: 02/10/18 11:47 Dose: 40 meq Saccharomyces Boulardii (Florastor) 250 mg PO DAILY [facility] Last Admin: 02/10/18 09:43 Dose: 250 mg Physical Exam - Constitutional Appears: Well, Non-toxic - Head Exam Head Exam: ATRAUMATIC, NORMOCEPHALIC - Extremities Exam Additional comments: B/L LE focused exam: Vasc: DP/PT 1/4 b/l. cap refill < 3 sec in all digits. Temp gradient warm to cool b/l. from proxime to distal. No edema noted b/l. Neuro: Gross and protective sensations are intact. Derm: No open lesions, No clinical signs of active infection. Right hallucal toe nail is ingrowing to the medial nail fold. MSK: Pain on palpating the Right hallucal toe nail. Muscle power intact 5/5 in all groups. - Neurological Exam Neurological exam: Alert, Oriented x3 - Psychiatric Exam Psychiatric exam: Normal Affect, Normal Mood Results - Vital Signs Recent Vital Signs: Last Vital Signs Temp 97.8 F 02/10/18 08:46 Pulse 93 H 02/10/18 08:46 Resp 18 02/10/18 08:46 BP 93/60 L 02/10/18 08:46 Pulse Ox 95 02/10/18 08:46 - Labs Result Diagrams: 02/10/18 04:25 02/10/18 08:40 Labs: Laboratory Results - last 24 hr 02/09/18 02/09/18 02/10/18 10:44 21:55 04:25 WBC 10.3 RBC 3.23 L Hgb 8.6 L Hct 30.3 L MCV 94.1 D MCH 26.6 L MCHC 28.3 L RDW 22.2 H Plt Count 339 Sodium Potassium Chloride Carbon Dioxide Anion Gap BUN Creatinine Est GFR ( Amer) Est GFR (Non-Af Amer) POC Glucose (mg/dL) 127 H Random Glucose Calcium Iron TIBC % Saturation Ferritin Total Bilirubin AST ALT Alkaline Phosphatase Total Protein Albumin Globulin Albumin/Globulin Ratio Ur L.pneumophila Ag Negative 02/10/18 02/10/18 02/10/18 05:43 08:40 10:57 WBC RBC Hgb Hct MCV MCH MCHC RDW Plt Count Sodium 139 Potassium 2.7 L Chloride 112 H Carbon Dioxide 25 Anion Gap 5 L BUN 2 L Creatinine 0.3 L Est GFR ( Amer) > 60 Est GFR (Non-Af Amer) > 60 POC Glucose (mg/dL) 82 119 H Random Glucose 82 Calcium 7.3 L Iron TIBC % Saturation Ferritin Total Bilirubin 0.2 AST 58 H ALT 48 Alkaline Phosphatase 257 H Total Protein 4.5 L Albumin 1.8 L Globulin 2.7 Albumin/Globulin Ratio 0.7 L Ur L.pneumophila Ag 02/10/18 02/10/18 12:10 12:10 WBC RBC Hgb Hct MCV MCH MCHC RDW Plt Count Sodium Potassium Chloride Carbon Dioxide Anion Gap BUN Creatinine Est GFR ( Amer) Est GFR (Non-Af Amer) POC Glucose (mg/dL) Random Glucose Calcium Iron 36 L TIBC 143 L % Saturation 25 Ferritin 477.0 H Total Bilirubin AST ALT Alkaline Phosphatase Total Protein Albumin Globulin Albumin/Globulin Ratio Ur L.pneumophila Ag Assessment & Plan - Assessment and Plan (Free Text) Assessment: 67 y/o F patient seen and evaluated at the bedside for right ingrowing toe nail Plan: Patient seen and evaluated at the bedside. Plan discussed with Attending Kala Carlson. Chart, labs and vitals reviewed;Afebrile, No leukocytosis. Using sterile nail nipper slant-back was done to he medial side of the right hallucal toe nail. Nail fold cleaned with sterile alcohol. patient tolerated the procedure well with no complications. Thank you for consulting podiatry service - Date & Time Date: 02/10/18 Time: 13:47
[2018-02-10] MEDS ORDERED: Sodium Chloride 0.9% 500 ML IV ONE (13:48)
--- NOTE | 2018-02-10 16:22 | NM ---
Date of service: 02/10/2018 PROCEDURE: Whole Body Bone Scan HISTORY: Elevated alkaline phosphatase COMPARISON: 06/11/2016. Three-phase bone scan 10/02/2015 conventional whole body bone scan 07/08/2010 whole-body bone scan TECHNIQUE: Following administration of 25.6 miCu of Tc MDP multiplanar whole body images were obtained. FINDINGS: Evidence for bony metastatic disease: None. Degenerative uptake: Bilateral knees, ankles and feet. Thoracolumbar spine secondary to scoliosis. Similar findings identified previously. Physiologic uptake: Normal physiologic activity in the kidneys. Other findings: Photon deficient findings in the proximal right humerus consistent with prior bony resection. IMPRESSION: No evidence of bony metastatic disease. Severe degenerative changes thoracolumbar spine. Degenerative changes both knees and feet as well as calcanei bilaterally. Findings in the proximal right humerus/shoulder consistent with prior resection proximal right humerus, finding confirmed on recent chest radiograph.
[2018-02-10 18:13] LABS: BLOOD UREA NITROGEN < 2 mg/dl (7-17); CALCIUM 7.9 mg/dL (8.4-10.2); GFR NON-AFRICAN AMERICAN > 60
[2018-02-10 23:07] LABS: FOLATE 8.3 ng/mL
[2018-02-11] MEDS: Albuterol 0.083% Inhal Sol (2.5 mg/3 mL) UD INH PRN ×3 (00:03→22:09)
[2018-02-11] MEDS: Piperacillin/Tazobact 4.5 GM in Sodium Chloride 0.9% 100 ML IVPB SCH ×3 (00:07→17:52)
--- NOTE | 2018-02-11 06:25 | CP.PCM.PN ---
<Melisa Charles - Last Filed: 02/11/18 11:38> Subjective - Date & Time of Evaluation Date of Evaluation: 02/11/18 Time of Evaluation: 06:23 - Subjective Subjective: 67 YO F seen at bedside resting comfortably. Still having difficulty coughing up expectorant, despite using Chest Physiotherapy device. States she still has poor appetite but is better then yesterday. Objective - Vital Signs/Intake and Output Vital Signs (last 24 hours): Temp Pulse Resp BP Pulse Ox 97.6 F 102 H 18 90/53 L 98 02/11/18 01:09 02/11/18 01:09 02/11/18 01:09 02/11/18 01:09 02/11/18 01:09 - Medications Medications: Current Medications Acetaminophen (Tylenol 325mg Tab) 650 mg PO Q6 PRN PRN Reason: Pain, Mild (1-3)/headache Last Admin: 02/08/18 23:22 Dose: 650 mg Acetazolamide (Diamox 250 Mg Tab) 250 mg PO DAILY [facility] Last Admin: 02/10/18 09:40 Dose: 250 mg Acetylcysteine (Acetylcysteine 20%) 2 ml INH RBID [facility] Last Admin: 02/10/18 19:17 Dose: 2 ml Albuterol Sulfate (Albuterol 0.083% Inhal Aby (2.5 Mg/3 Ml) Ud) 2.5 mg INH RQ4 PRN PRN Reason: Shortness of Breath Last Admin: 02/11/18 00:03 Dose: 2.5 mg Anastrozole (Arimidex 1 Mg Tab) 1 mg PO DAILY [facility] Last Admin: 02/10/18 09:42 Dose: 1 mg Aspirin (Aspirin Chewable) 81 mg PO DAILY [facility] Last Admin: 02/10/18 09:41 Dose: 81 mg Clarithromycin (Biaxin Filmtab) 250 mg PO Q12 [facility]; Protocol Last Admin: 02/10/18 22:11 Dose: 250 mg Enoxaparin Sodium (Lovenox) 40 mg SC DAILY [facility]; Protocol Last Admin: 02/10/18 09:41 Dose: 40 mg Gabapentin (Neurontin) 600 mg PO Q8 [facility] Last Admin: 02/11/18 00:08 Dose: 600 mg Vancomycin HCl 1 gm/ Sodium (Chloride) 250 mls @ 166.667 mls/hr IVPB Q12 [facility]; Protocol Last Admin: 02/11/18 00:06 Dose: 166.667 mls/hr Piperacillin Sod/Tazobactam (Sod 4.5 gm/ Sodium Chloride) 100 mls @ 100 mls/hr IVPB Q8 [facility]; Protocol Last Admin: 02/11/18 00:07 Dose: 100 mls/hr Amikacin Sulfate 250 mg/ (Sodium Chloride) 101 mls @ 100.609 mls/hr IVPB 2000 [facility]; Protocol Last Admin: 02/10/18 22:10 Dose: 100.609 mls/hr Ipratropium [place] (Atrovent) 0.5 mg IH RQID [facility] Last Admin: 02/10/18 19:18 Dose: 0.5 mg Potassium Chloride (Potassium Chloride Oral Soln) 40 meq PO DAILY [facility] Last Admin: 02/10/18 11:47 Dose: 40 meq Saccharomyces Boulardii (Florastor) 250 mg PO DAILY [facility] Last Admin: 02/10/18 09:43 Dose: 250 mg - Labs Labs: 02/10/18 04:25 02/10/18 17:30 PT 19.2 Seconds (9.8-13.1) H 02/08/18 00:40 INR 1.7 02/08/18 00:40 APTT 36.5 Seconds (25.6-37.1) 02/08/18 00:40 - Constitutional Appears: No Acute Distress, Chronically Ill - Head Exam Head Exam: NORMAL INSPECTION - Respiratory Exam Respiratory Exam: Decreased Breath Sounds, Rales. absent: Wheezes - Cardiovascular Exam Cardiovascular Exam: +S1, +S2 - GI/Abdominal Exam GI & Abdominal Exam: Soft. absent: Tenderness - Extremities Exam Additional comments: chronic right UE edema - No lower extremity edema noted - Skin Skin Exam: Warm Assessment and Plan - Assessment and Plan (Free Text) Assessment: 67 y/o female with pmhx of COPD, sys/leigh CHF, HTN, hx breast CA and multiple other co-morbidities presented to ED from [facility] for evaluation of fever, cough and abnormal blood work. Patient is admitted for sepsis, pneumonia, and hypokalemia. Plan: 1. Sepsis - sepsis criteria met on admission - can be secondary to pneumonia/bacteremia - blood cx - Staph aureus and Cornebacterium - Sputum culture: Gram neg - afebrile - CXR - no interval changes - Chest CT - dense left lower lobe pneumonia appreciated likely intermixed atelectasis only minimal mucoid material at left mainstem bronchus and inferior trachea; minimal right lower lobe pneumonia not excluded through dependent atelectasis and compression atelectasis felt to represent the majority of airspace disease at the right lower lobe; minimal bilateral pleural effusions, R>L - Pulmonary and ID consult appreciated - C/W As per ID: - vancomycin 1gm IV Q12( Day 4) - zosyn 4.5gm IV Q8( Day 4) - amikacin sulfate 250mg IVPB( Day 4) - clarithromycin 250mg PO Q12 2. COPD - chronic, controlled - 2L NC - Ipratropium .5 mg IH RQID - Use albuterol prn 3. C. diff - r/o - C.diff Ag and toxin - negative 02/09 4. Persistent Hypokalemia - K: 3.0 - Possibly secondary to hyperthyroidism. TSH: <.02 - 20 KCL IVP given today - 40 KCL PO daily - Will restart methamazole and continue to monitor K+ levels - Normal Mg+ and Phos - F/U with BMP 5. Low blood pressure - asymptomatic -Echo (November) - 60-65% EF -BUN <2, creat 0.3 (02/10) -will monitor for any changes 6. Hyperthyroidism - Start Methamazole 7. Breast cancer - chronic - Anastrozole 1mg PO daily 8. DVT prophylaxis - Lovenox 40mg SC daily <Georgia Camilo - Last Filed: 02/11/18 15:36> Objective - Vital Signs/Intake and Output Vital Signs (last 24 hours): Temp Pulse Resp BP Pulse Ox 97.4 F L 99 H 20 91/55 L 100 02/11/18 13:21 02/11/18 13:21 02/11/18 13:21 02/11/18 13:21 02/11/18 13:21 - Medications Medications: Current Medications Acetaminophen (Tylenol 325mg Tab) 650 mg PO Q6 PRN PRN Reason: Pain, Mild (1-3)/headache Last Admin: 02/08/18 23:22 Dose: 650 mg Acetazolamide (Diamox 250 Mg Tab) 250 mg PO DAILY [facility] Last Admin: 02/11/18 14:10 Dose: 250 mg Acetylcysteine (Acetylcysteine 20%) 2 ml INH RBID [facility] Last Admin: 02/11/18 07:15 Dose: 2 ml Albuterol Sulfate (Albuterol 0.083% Inhal Aby (2.5 Mg/3 Ml) Ud) 2.5 mg INH RQ4 PRN PRN Reason: Shortness of Breath Last Admin: 02/11/18 00:03 Dose: 2.5 mg Anastrozole (Arimidex 1 Mg Tab) 1 mg PO DAILY [facility] Last Admin: 02/11/18 10:16 Dose: 1 mg Aspirin (Aspirin Chewable) 81 mg PO DAILY [facility] Last Admin: 02/11/18 10:12 Dose: 81 mg Clarithromycin (Biaxin Filmtab) 250 mg PO Q12 [facility]; Protocol Last Admin: 02/11/18 10:11 Dose: 250 mg Enoxaparin Sodium (Lovenox) 40 mg SC DAILY [facility]; Protocol Last Admin: 02/11/18 10:09 Dose: 40 mg Gabapentin (Neurontin) 600 mg PO Q8 [facility] Last Admin: 02/11/18 10:11 Dose: 600 mg Guaifenesin (Mucinex [place]) 600 mg PO Q12 [facility] Vancomycin HCl 1 gm/ Sodium (Chloride) 250 mls @ 166.667 mls/hr IVPB Q12 [facility]; Protocol Last Admin: 02/11/18 10:08 Dose: 166.667 mls/hr Piperacillin Sod/Tazobactam (Sod 4.5 gm/ Sodium Chloride) 100 mls @ 100 mls/hr IVPB Q8 [facility]; Protocol Last Admin: 02/11/18 10:01 Dose: 100 mls/hr Amikacin Sulfate 250 mg/ (Sodium Chloride) 101 mls @ 100.609 mls/hr IVPB 2000 [facility]; Protocol Last Admin: 02/10/18 22:10 Dose: 100.609 mls/hr Ipratropium [place] (Atrovent) 0.5 mg IH RQID [facility] Last Admin: 02/11/18 15:11 Dose: 0.5 mg Methimazole (Tapazole) 10 mg PO DAILY [facility] Potassium Chloride (Potassium Chloride Oral Soln) 40 meq PO DAILY [facility] Last Admin: 02/11/18 10:14 Dose: 40 meq Saccharomyces Boulardii (Florastor) 250 mg PO DAILY [facility] Last Admin: 02/11/18 10:11 Dose: 250 mg - Labs Labs: 02/11/18 06:02 02/11/18 06:02 PT 19.2 Seconds (9.8-13.1) H 02/08/18 00:40 INR 1.7 02/08/18 00:40 APTT 36.5 Seconds (25.6-37.1) 02/08/18 00:40 Attending/Attestation - Attestation I have personally seen and examined this patient.: Yes I have fully participated in the care of the patient.: Yes I have reviewed all pertinent clinical information, including history, physical exam and plan: Yes
[2018-02-11 07:04] LABS: BASO # 0.1 K/uL (0.0-0.2); BASO % 0.7 % (0.0-2.0); EOS # 0.4 K/uL (0.0-0.7); EOS % 4.5 % (0.0-4.0); HEMOGLOBIN 8.4 g/dL (12.0-16.0); LYMPH # 1.2 K/uL (1.0-4.3); LYMPH % 13.2 % (20.0-40.0); MEAN CELL VOLUME 88.4 fl (81.0-99.0); MEAN CORPUSCULAR HEMOGLOBIN 26.3 pg (27.0-31.0); MEAN CORPUSCULAR HGB CONC 29.8 g/dL (33.0-37.0); MEAN PLATELET VOLUME 7.1 fl (7.2-11.7); MONO # 1.2 K/uL (0.0-0.8); MONO % 13.2 % (0.0-10.0); NEUT # 5.9 K/uL (1.8-7.0); NEUT % 68.4 % (50.0-75.0); RBC 3.19 Mil/uL (3.80-5.20); RED CELL DISTRIBUTION WIDTH 21.3 % (11.5-14.5); WHITE BLOOD COUNT 8.7 K/uL (4.8-10.8)
[2018-02-11] MEDS: Acetylcysteine 20% Inhal Soln (4ml) INH SCH ×2 (07:15→19:07)
[2018-02-11] MEDS: Ipratropium 0.02% Inhal Soln (0.5 mg/2.5 ml) UD IH SCH ×4 (07:16→19:07)
[2018-02-11 07:37] LABS: BLOOD UREA NITROGEN < 2 mg/dl (7-17); CALCIUM 7.6 mg/dL (8.4-10.2); GFR NON-AFRICAN AMERICAN > 60
--- NOTE | 2018-02-11 09:23 | CP.PCM.PN ---
Subjective - Date & Time of Evaluation Date of Evaluation: 02/11/18 Time of Evaluation: 09:23 - Subjective Subjective: Appears comfortable at rest. Vital signs and labs reviewed. TSH markedly decreased @ <0.02. Remains chronically tachycardic with low normal BP. Continues to be hypokalemic despite repeated supplements. Bone scan performed yesterday w/o evidence of metastases. Continues to have congested but non-productive cough. Sputum reported as gram neg rods-moderate growth; final ID pending. Continues to have dependant edema w/o cyanosis. Neck is supple and trachea midline. No neck vein distension. Continues to have basal chest dullness posteriorly. Bibasal bronchial breath sounds seem diminished compared to previous exam. No audible wheezing. Few scattered dry rales and occasional rhonchi. Will begin methimazole 10MG daily. Continue use of CPT device. Will discuss with infectious disease present antibiotic regimen. Add guaifenesin to current regimen. Objective - Vital Signs/Intake and Output Vital Signs (last 24 hours): Temp Pulse Resp BP Pulse Ox 97.4 F L 90 20 91/49 L 97 02/11/18 08:19 02/11/18 08:19 02/11/18 08:19 02/11/18 08:19 02/11/18 08:19 - Medications Medications: Current Medications Acetaminophen (Tylenol 325mg Tab) 650 mg PO Q6 PRN PRN Reason: Pain, Mild (1-3)/headache Last Admin: 02/08/18 23:22 Dose: 650 mg Acetazolamide (Diamox 250 Mg Tab) 250 mg PO DAILY [facility] Last Admin: 02/10/18 09:40 Dose: 250 mg Acetylcysteine (Acetylcysteine 20%) 2 ml INH RBID [facility] Last Admin: 02/11/18 07:15 Dose: 2 ml Albuterol Sulfate (Albuterol 0.083% Inhal Aby (2.5 Mg/3 Ml) Ud) 2.5 mg INH RQ4 PRN PRN Reason: Shortness of Breath Last Admin: 02/11/18 00:03 Dose: 2.5 mg Anastrozole (Arimidex 1 Mg Tab) 1 mg PO DAILY [facility] Last Admin: 02/10/18 09:42 Dose: 1 mg Aspirin (Aspirin Chewable) 81 mg PO DAILY [facility] Last Admin: 02/10/18 09:41 Dose: 81 mg Clarithromycin (Biaxin Filmtab) 250 mg PO Q12 [facility]; Protocol Last Admin: 02/10/18 22:11 Dose: 250 mg Enoxaparin Sodium (Lovenox) 40 mg SC DAILY [facility]; Protocol Last Admin: 02/10/18 09:41 Dose: 40 mg Gabapentin (Neurontin) 600 mg PO Q8 [facility] Last Admin: 02/11/18 00:08 Dose: 600 mg Vancomycin HCl 1 gm/ Sodium (Chloride) 250 mls @ 166.667 mls/hr IVPB Q12 [facility]; Protocol Last Admin: 02/11/18 00:06 Dose: 166.667 mls/hr Piperacillin Sod/Tazobactam (Sod 4.5 gm/ Sodium Chloride) 100 mls @ 100 mls/hr IVPB Q8 [facility]; Protocol Last Admin: 02/11/18 00:07 Dose: 100 mls/hr Amikacin Sulfate 250 mg/ (Sodium Chloride) 101 mls @ 100.609 mls/hr IVPB 2000 [facility]; Protocol Last Admin: 02/10/18 22:10 Dose: 100.609 mls/hr Potassium Chloride (Potassium Chloride 20 Meq/100 Ml) 100 mls @ 50 mls/hr IVPB ONCE ONE Stop: 02/11/18 11:59 Ipratropium [place] (Atrovent) 0.5 mg IH RQID [facility] Last Admin: 02/11/18 07:16 Dose: 0.5 mg Methimazole (Tapazole) 10 mg PO DAILY [facility] Potassium Chloride (Potassium Chloride Oral Soln) 40 meq PO DAILY [facility] Last Admin: 02/10/18 11:47 Dose: 40 meq Potassium Chloride (Potassium Chloride Oral Soln) 20 meq PO ONCE ONE Stop: 02/11/18 15:01 Saccharomyces Boulardii (Florastor) 250 mg PO DAILY [facility] Last Admin: 02/10/18 09:43 Dose: 250 mg - Labs Labs: 02/11/18 06:02 02/11/18 06:02 PT 19.2 Seconds (9.8-13.1) H 02/08/18 00:40 INR 1.7 02/08/18 00:40 APTT 36.5 Seconds (25.6-37.1) 02/08/18 00:40 Assessment and Plan (1) Pneumonia Status: Suspected (2) Sepsis Status: Acute (3) Chronic hypercapnic respiratory failure Status: Chronic (4) COPD (chronic obstructive pulmonary disease) Status: Chronic (5) Hyperthyroidism Status: Chronic (6) Lymphedema of arm Status: Chronic
[2018-02-11] MEDS ORDERED: Potassium Chloride 20 mEq 100 ML IVPB ONE (10:00)
[2018-02-11] MEDS: Enoxaparin 40 mg Syringe SC SCH (10:09)
[2018-02-11] MEDS: Saccharomyces Boulardi 250 mg Cap PO SCH (10:11)
[2018-02-11] MEDS: Potassium Chloride 20 mEq/15 ml LIQ UD PO SCH (10:14)
[2018-02-11 10:45] LABS: T4 5.95 ug/dl (5.5-11.0)
[2018-02-11 10:59] LABS: T3 1.3 nmol/L (1.49-2.60)
[2018-02-11] MEDS ORDERED: Potassium Chloride 20 mEq/15 ml LIQ UD PO ONE (15:00)
[2018-02-11] MEDS: guaiFENesin 600 mg ER Tab PO SCH ×2 (17:53→22:28)
[2018-02-11] MEDS ORDERED: Albuterol-Ipratrop 3 mg / 0.5 (3 ml) UD INH STA (22:02)
[2018-02-12] MEDS: Piperacillin/Tazobact 4.5 GM in Sodium Chloride 0.9% 100 ML IVPB SCH ×3 (00:44→17:37)
[2018-02-12] MEDS: Acetylcysteine 20% Inhal Soln (4ml) INH SCH ×2 (07:36→19:09)
[2018-02-12] MEDS: Ipratropium 0.02% Inhal Soln (0.5 mg/2.5 ml) UD IH SCH ×4 (07:36→19:08)
[2018-02-12 07:53] LABS: BASO # 0.1 K/uL (0.0-0.2); BASO % 0.8 % (0.0-2.0); EOS # 0.4 K/uL (0.0-0.7); EOS % 5.5 % (0.0-4.0); HEMOGLOBIN 8.6 g/dL (12.0-16.0); LYMPH # 1.3 K/uL (1.0-4.3); LYMPH % 16.2 % (20.0-40.0); MEAN CORPUSCULAR HEMOGLOBIN 26.6 pg (27.0-31.0); MEAN CORPUSCULAR HGB CONC 29.6 g/dL (33.0-37.0); MEAN PLATELET VOLUME 7.3 fl (7.2-11.7); MONO # 1.3 K/uL (0.0-0.8); MONO % 16.5 % (0.0-10.0); NEUT # 4.9 K/uL (1.8-7.0); RBC 3.24 Mil/uL (3.80-5.20); RED CELL DISTRIBUTION WIDTH 21.4 % (11.5-14.5); WHITE BLOOD COUNT 8.1 K/uL (4.8-10.8)
[2018-02-12 08:12] LABS: ALB/GLOB RATIO 0.6 (1.0-2.1); ALBUMIN 1.7 g/dL (3.5-5.0); ALT/SGPT 52 U/L (9-52); AST/SGOT 72 U/L (14-36); BLOOD UREA NITROGEN < 2 mg/dl (7-17); CALCIUM 8.6 mg/dL (8.4-10.2); GFR NON-AFRICAN AMERICAN > 60
--- NOTE | 2018-02-12 09:52 | RAD ---
Date of service: 02/12/2018 HISTORY: pneumonia COMPARISON: 02/08/2018 FINDINGS: LUNGS: Single frontal portable view of the chest was performed. There is some mild increase in pleural effusion and density at both lung bases which may represent some increased atelectasis. Vasculature may also be slightly increased. PLEURA: Small effusions. No pneumothorax. CARDIOVASCULAR: Possible mild vascular congestion. OSSEOUS STRUCTURES: No significant abnormalities. VISUALIZED UPPER ABDOMEN: Normal. OTHER FINDINGS: None. IMPRESSION: Mild increase in lower lobe density representing some atelectasis and small effusions. There appears to be some mild increase in vascular congestion.
[2018-02-12] MEDS: guaiFENesin 600 mg ER Tab PO SCH ×2 (10:14→20:43)
[2018-02-12] MEDS: Saccharomyces Boulardi 250 mg Cap PO SCH (10:15)
[2018-02-12] MEDS: Enoxaparin 40 mg Syringe SC SCH (10:15)
[2018-02-12] MEDS: Potassium Chloride 20 mEq 100 ML IVPB SCH ×2 (10:16→14:10)
[2018-02-12] MEDS: Potassium Chloride 20 mEq/15 ml LIQ UD PO SCH (10:18)
[2018-02-12] MEDS ORDERED: Magnesium Sulfate 2 gm/50 ml 2 GM/50 ML BAG IVPB ONE (11:33)
--- NOTE | 2018-02-12 11:42 | CP.PCM.PN ---
Subjective - Date & Time of Evaluation Date of Evaluation: 02/12/18 Time of Evaluation: 11:35 - Subjective Subjective: I D NOTE HAS POSITIVE BLOOD CULTURE FOR STAPH AUREUS WILL ORDER FOLLOWUP CULTURES HAS KLEBSIDELLA IN SPUTUM WILL DISCUSS CXR C SAME ANTIBIOTIC REGIMEN Objective - Vital Signs/Intake and Output Vital Signs (last 24 hours): Temp Pulse Resp BP Pulse Ox 97.6 F 95 H 20 93/46 L 100 02/12/18 08:25 02/12/18 08:25 02/12/18 08:25 02/12/18 08:25 02/12/18 08:25 - Medications Medications: Current Medications Acetaminophen (Tylenol 325mg Tab) 650 mg PO Q6 PRN PRN Reason: Pain, Mild (1-3)/headache Last Admin: 02/11/18 18:02 Dose: 650 mg Acetazolamide (Diamox 250 Mg Tab) 250 mg PO DAILY [facility] Last Admin: 02/12/18 10:15 Dose: 250 mg Acetylcysteine (Acetylcysteine 20%) 2 ml INH RBID [facility] Last Admin: 02/12/18 07:36 Dose: 2 ml Albuterol Sulfate (Albuterol 0.083% Inhal Aby (2.5 Mg/3 Ml) Ud) 2.5 mg INH RQ4 PRN PRN Reason: Shortness of Breath Last Admin: 02/11/18 22:09 Dose: 2.5 mg Anastrozole (Arimidex 1 Mg Tab) 1 mg PO DAILY [facility] Last Admin: 02/12/18 10:10 Dose: 1 mg Aspirin (Aspirin Chewable) 81 mg PO DAILY [facility] Last Admin: 02/12/18 10:15 Dose: 81 mg Clarithromycin (Biaxin Filmtab) 250 mg PO Q12 [facility]; Protocol Last Admin: 02/12/18 10:14 Dose: 250 mg Gabapentin (Neurontin) 600 mg PO Q8 [facility] Last Admin: 02/12/18 10:15 Dose: 600 mg Guaifenesin (Mucinex La) 600 mg PO Q12 [facility] Last Admin: 02/12/18 10:14 Dose: 600 mg Piperacillin Sod/Tazobactam (Sod 4.5 gm/ Sodium Chloride) 100 mls @ 100 mls/hr IVPB Q8 [facility]; Protocol Last Admin: 02/12/18 10:04 Dose: 100 mls/hr Amikacin Sulfate 250 mg/ (Sodium Chloride) 101 mls @ 100.609 mls/hr IVPB 2000 [facility]; Protocol Last Admin: 02/11/18 21:00 Dose: 100.609 mls/hr Potassium Chloride (Potassium Chloride 20 Meq/100 Ml) 100 mls @ 50 mls/hr IVPB Q2 [facility] Stop: 02/12/18 13:59 Last Admin: 02/12/18 10:16 Dose: 50 mls/hr Vancomycin HCl 1 gm/ Sodium (Chloride) 250 mls @ 166.667 mls/hr IVPB DAILY [facility]; Protocol Magnesium Sulfate 2 gm/ Sodium (Chloride) 104 mls @ 104 mls/hr IVPB ONCE ONE Stop: 02/12/18 12:32 Ipratropium [place] (Atrovent) 0.5 mg IH RQID [facility] Last Admin: 02/12/18 11:31 Dose: 0.5 mg Methimazole (Tapazole) 10 mg PO DAILY [facility] Potassium Chloride (Potassium Chloride Oral Soln) 40 meq PO DAILY [facility] Last Admin: 02/12/18 10:18 Dose: 40 meq Saccharomyces Boulardii (Florastor) 250 mg PO DAILY [facility] Last Admin: 02/12/18 10:15 Dose: 250 mg - Labs Labs: 02/12/18 06:45 02/12/18 06:45 PT 19.2 Seconds (9.8-13.1) H 02/08/18 00:40 INR 1.7 02/08/18 00:40 APTT 36.5 Seconds (25.6-37.1) 02/08/18 00:40
--- NOTE | 2018-02-12 15:20 | CP.PCM.PN ---
<Melisa Charles - Last Filed: 02/12/18 15:29> Subjective - Date & Time of Evaluation Date of Evaluation: 02/12/18 Time of Evaluation: 15:07 - Subjective Subjective: 67 YO F seen at bedside. Slept well overnight, however does not have much of an appetite. Continues have difficulty coughing up expectorate. - States that her diarrhea has subsided. - Denies any chest pain, SOB, N/V/D. Objective - Vital Signs/Intake and Output Vital Signs (last 24 hours): Temp Pulse Resp BP Pulse Ox 97.5 F L 73 18 93/46 L 98 02/12/18 12:50 02/12/18 12:50 02/12/18 12:50 02/12/18 08:25 02/12/18 12:50 - Medications Medications: Current Medications Acetaminophen (Tylenol 325mg Tab) 650 mg PO Q6 PRN PRN Reason: Pain, Mild (1-3)/headache Last Admin: 02/11/18 18:02 Dose: 650 mg Acetazolamide (Diamox 250 Mg Tab) 250 mg PO DAILY [facility] Last Admin: 02/12/18 10:15 Dose: 250 mg Acetylcysteine (Acetylcysteine 20%) 2 ml INH RBID [facility] Last Admin: 02/12/18 07:36 Dose: 2 ml Albuterol Sulfate (Albuterol 0.083% Inhal Aby (2.5 Mg/3 Ml) Ud) 2.5 mg INH RQ4 PRN PRN Reason: Shortness of Breath Last Admin: 02/11/18 22:09 Dose: 2.5 mg Anastrozole (Arimidex 1 Mg Tab) 1 mg PO DAILY [facility] Last Admin: 02/12/18 10:10 Dose: 1 mg Aspirin (Aspirin Chewable) 81 mg PO DAILY [facility] Last Admin: 02/12/18 10:15 Dose: 81 mg Gabapentin (Neurontin) 600 mg PO Q8 [facility] Last Admin: 02/12/18 10:15 Dose: 600 mg Guaifenesin (Mucinex La) 600 mg PO Q12 [facility] Last Admin: 02/12/18 10:14 Dose: 600 mg Piperacillin Sod/Tazobactam (Sod 4.5 gm/ Sodium Chloride) 100 mls @ 100 mls/hr IVPB Q8 [facility]; Protocol Last Admin: 02/12/18 10:04 Dose: 100 mls/hr Vancomycin HCl 1 gm/ Sodium (Chloride) 250 mls @ 166.667 mls/hr IVPB DAILY [facility]; Protocol Last Admin: 02/12/18 11:46 Dose: 166.667 mls/hr Ipratropium [place] (Atrovent) 0.5 mg IH RQID [facility] Last Admin: 02/12/18 11:31 Dose: 0.5 mg Methimazole (Tapazole) 5 mg PO QPM [facility] Potassium Chloride (Potassium Chloride Oral Soln) 40 meq PO DAILY [facility] Last Admin: 02/12/18 10:18 Dose: 40 meq Saccharomyces Boulardii (Florastor) 250 mg PO DAILY [facility] Last Admin: 02/12/18 10:15 Dose: 250 mg - Labs Labs: 02/12/18 06:45 02/12/18 06:45 PT 19.2 Seconds (9.8-13.1) H 02/08/18 00:40 INR 1.7 02/08/18 00:40 APTT 36.5 Seconds (25.6-37.1) 02/08/18 00:40 - Constitutional Appears: No Acute Distress, Chronically Ill - Head Exam Head Exam: NORMAL INSPECTION - Respiratory Exam Respiratory Exam: Decreased Breath Sounds, Rales. absent: Wheezes, Respiratory Distress - Cardiovascular Exam Cardiovascular Exam: +S1, +S2 - GI/Abdominal Exam GI & Abdominal Exam: Soft, Normal Bowel Sounds. absent: Tenderness - Neurological Exam Neurological Exam: Alert, Awake, Oriented x3. absent: CN II-XII Intact - Skin Skin Exam: Normal Color, Warm Assessment and Plan - Assessment and Plan (Free Text) Assessment: 67 y/o female with pmhx of COPD, sys/leigh CHF, HTN, hx breast CA and multiple other co-morbidities presented to ED from long term for evaluation of fever, cough and abnormal blood work. Patient is admitted for sepsis, pneumonia, and hypokalemia. Plan: 1. Sepsis - sepsis criteria met on admission - can be secondary to pneumonia/bacteremia - blood cx - Staph aureus and Cornebacterium - Sputum culture: Gram neg - afebrile - CXR - no interval changes - Chest CT - dense left lower lobe pneumonia appreciated likely intermixed atelectasis only minimal mucoid material at left mainstem bronchus and inferior trachea; minimal right lower lobe pneumonia not excluded through dependent atelectasis and compression atelectasis felt to represent the majority of a irspace disease at the right lower lobe; minimal bilateral pleural effusions, R>L - Pulmonary and ID consult appreciated - C/W As per ID: - vancomycin 1gm IV Q12( Day 5) - zosyn 4.5gm IV Q8( Day 5) - D/C amikacin sulfate 250mg IVPB and clarithromycin as per ID 2. COPD - chronic, controlled - 2L NC - Ipratropium .5 mg IH RQID - Use albuterol prn 3. C. diff - r/o - C.diff Ag and toxin - negative 02/09 4. Persistent Hypokalemia - K: 3.2 - Restart methamozole: Hyperthyroidism may be leading to hypokalemia - 20 KCL IVP given today - 40 KCL PO daily - 2mg of Mg+ given today - F/U with BMP 5. Low blood pressure - asymptomatic -Echo (November) - 60-65% EF -BUN <2, creat 0.3 (02/10) -will monitor for any changes 6. Hyperthyroidism - Start Methamazole 7. Breast cancer - chronic - Anastrozole 1mg PO daily 8. DVT prophylaxis - Lovenox 40mg SC daily <Georgia Camilo - Last Filed: 02/12/18 17:32> Objective - Vital Signs/Intake and Output Vital Signs (last 24 hours): Temp Pulse Resp BP Pulse Ox 97.4 F L 102 H 16 99/62 L 95 02/12/18 15:58 02/12/18 15:58 02/12/18 15:58 02/12/18 15:58 02/12/18 15:58 - Medications Medications: Current Medications Acetaminophen (Tylenol 325mg Tab) 650 mg PO Q6 PRN PRN Reason: Pain, Mild (1-3)/headache Last Admin: 02/11/18 18:02 Dose: 650 mg Acetazolamide (Diamox 250 Mg Tab) 250 mg PO DAILY [facility] Last Admin: 02/12/18 10:15 Dose: 250 mg Acetylcysteine (Acetylcysteine 20%) 2 ml INH RBID [facility] Last Admin: 02/12/18 07:36 Dose: 2 ml Albuterol Sulfate (Albuterol 0.083% Inhal Aby (2.5 Mg/3 Ml) Ud) 2.5 mg INH RQ4 PRN PRN Reason: Shortness of Breath Last Admin: 02/11/18 22:09 Dose: 2.5 mg Anastrozole (Arimidex 1 Mg Tab) 1 mg PO DAILY [facility] Last Admin: 02/12/18 10:10 Dose: 1 mg Aspirin (Aspirin Chewable) 81 mg PO DAILY [facility] Last Admin: 02/12/18 10:15 Dose: 81 mg Gabapentin (Neurontin) 600 mg PO Q8 [facility] Last Admin: 02/12/18 10:15 Dose: 600 mg Guaifenesin (Mucinex La) 600 mg PO Q12 [facility] Last Admin: 02/12/18 10:14 Dose: 600 mg Piperacillin Sod/Tazobactam (Sod 4.5 gm/ Sodium Chloride) 100 mls @ 100 mls/hr IVPB Q8 [facility]; Protocol Last Admin: 02/12/18 10:04 Dose: 100 mls/hr Vancomycin HCl 1 gm/ Sodium (Chloride) 250 mls @ 166.667 mls/hr IVPB DAILY [facility]; Protocol Last Admin: 02/12/18 11:46 Dose: 166.667 mls/hr Ipratropium [place] (Atrovent) 0.5 mg IH RQID [facility] Last Admin: 02/12/18 15:44 Dose: 0.5 mg Methimazole (Tapazole) 5 mg PO QPM [facility] Potassium Chloride (Potassium Chloride Oral Soln) 40 meq PO DAILY [facility] Last Admin: 02/12/18 10:18 Dose: 40 meq Saccharomyces Boulardii (Florastor) 250 mg PO DAILY [facility] Last Admin: 02/12/18 10:15 Dose: 250 mg - Labs Labs: 02/12/18 06:45 02/12/18 06:45 PT 19.2 Seconds (9.8-13.1) H 02/08/18 00:40 INR 1.7 02/08/18 00:40 APTT 36.5 Seconds (25.6-37.1) 02/08/18 00:40 Attending/Attestation - Attestation I have personally seen and examined this patient.: Yes I have fully participated in the care of the patient.: Yes I have reviewed all pertinent clinical information, including history, physical exam and plan: Yes
[2018-02-12] MEDS: methIMAzole 5 MG TAB PO SCH (20:44)
--- NOTE | 2018-02-13 01:16 | CON ---
DATE: 02/12/2018 ENDOCRINOLOGY CONSULTATION HISTORY OF PRESENT ILLNESS: This is a 67-year-old female, very well known to me from prior hospital consultation, presenting here with progressively worsening shortness of breath and pleuritic chest pain and was evaluated to have Strep pneumonia with exacerbation of COPD and is now being referred for evaluation of abnormal thyroid function studies. PAST MEDICAL HISTORY: History of hyperthyroidism, previously on Tapazole given as 10 mg daily; history of hypertensive cardiovascular disease and dyslipidemia; history of chronic obstructive lung disease with multiple hospital readmissions for exacerbations of the same and has been steroid dependent for some now. History of congestive heart failure again with multiple hospital readmissions. History of metastatic breast carcinoma and underwent right humeral and joint resection with chemotherapy and radiation about eight years ago. She has continued to have right upper extremity chronic lymphedema as noted. Hyperthyroidism, previously on Tapazole given as 10 mg once daily with supervening hypothyroidism and has been taken off Tapazole therapy with previous admissions. History of generalized osteoporosis. Also history of generalized anxiety and depression, on psychotropic medications. She has also significant history of cervical and lumbar disk disease and underwent lumbar and cervical fusion procedures as noted. History of bilateral mastectomy, undertaken twice initially on the right in 1998 and another on the left in 2008 for metastatic breast cancer. History of shoulder replacement in 1999 with removal of the hardware in 2013. She had a prior cholecystectomy as noted. FAMILY HISTORY: Strongly positive for cancer including breast, lung, pancreatic, and ovarian cancer. SOCIAL HISTORY: The patient used to be nicotine dependence for over 50 years of consuming half a pack a day of cigarettes. She quit smoking about two years ago. She has a very supportive family as noted. REVIEW OF SYSTEMS: As mentioned above. Admits to generalized body weakness with easy fatigability and tiredness, optimal energy level. Also admits to bifrontal headaches with progressively worsening shortness of breath, initially on exertion and then at rest. There is no nocturnal dyspnea. Also admits fairly recent onset of productive cough with the chest pain. PHYSICAL EXAMINATION: GENERAL: Average-built female, in no apparent distress. VITAL SIGNS: Blood pressure 90/60, pulse of 120 beats per minute and regular, temperature 98, respirations 20. Height is 5 feet 3 inches. Weight is 223 pounds. HEENT: Head is normocephalic. Eyes, anicteric with pink conjunctivae. Funduscopy not possible at this time. Ears, nose and throat otherwise normal. NECK: Supple. Thyroid gland is normal in size. No carotid bruits or cervical adenopathy. CARDIOPULMONARY: Adynamic precordium. S1 and S2 are regular. LUNGS: Show scattered rhonchi and bibasilar rales. ABDOMEN: Flat, soft with positive bowel sounds. EXTREMITIES: No peripheral edema. Pulses are positive bilaterally. LABORATORY DATA: WBC initially was 25.9 with a hemoglobin of 9.9, hematocrit of 32, platelets 347. Subsequent white count is now 8.1 with a hemoglobin of 8.6 and hematocrit of 29.2. Chemistry showed a BUN of 2, sodium 141, potassium 3.2, chloride 113, CO2 of 25, glucose 72, and creatinine 0.3. Free T4 was 1.52 with a TSH of less than 0.02 and total T4 of 5.95. ASSESSMENT: This is a 67-year-old female with acute pneumonitis and possible bacteremia/septicemia, currently being evaluated for metabolic management because of known history of hyperthyroidism, presenting here with a suppressed thyroid-stimulating hormone indicative of early hypothyroidism. Considering that the initial clinically euthyroid but biochemically has subclinical hyperthyroidism as noted thereof. PLAN OF MANAGEMENT: As discussed with the patient and staff. We will add Tapazole given as 5 mg once daily in the evening as ordered to start today. We will continue the Tapazole given as 10 mg only in the morning as ordered. We will titrate incrementally as indicated to optimize metabolic control. We will follow. Polly Vu MD
[2018-02-13] MEDS: Piperacillin/Tazobact 4.5 GM in Sodium Chloride 0.9% 100 ML IVPB SCH ×3 (01:30→18:27)
[2018-02-13 06:00] LABS: BASO # 0.1 K/uL (0.0-0.2); EOS # 0.4 K/uL (0.0-0.7); EOS % 3.9 % (0.0-4.0); HEMOGLOBIN 8.8 g/dL (12.0-16.0); LYMPH # 1.3 K/uL (1.0-4.3); LYMPH % 13.3 % (20.0-40.0); MEAN CELL VOLUME 87.2 fl (81.0-99.0); MEAN CORPUSCULAR HEMOGLOBIN 26.7 pg (27.0-31.0); MEAN CORPUSCULAR HGB CONC 30.6 g/dL (33.0-37.0); MEAN PLATELET VOLUME 6.7 fl (7.2-11.7); MONO # 1.2 K/uL (0.0-0.8); MONO % 12.3 % (0.0-10.0); NEUT # 6.9 K/uL (1.8-7.0); NEUT % 69.5 % (50.0-75.0); RBC 3.31 Mil/uL (3.80-5.20); RED CELL DISTRIBUTION WIDTH 21.3 % (11.5-14.5); WHITE BLOOD COUNT 9.9 K/uL (4.8-10.8)
[2018-02-13 06:15] LABS: ALB/GLOB RATIO 0.6 (1.0-2.1); ALBUMIN 1.7 g/dL (3.5-5.0); ALT/SGPT 50 U/L (9-52); AST/SGOT 71 U/L (14-36); BLOOD UREA NITROGEN < 2 mg/dl (7-17); CALCIUM 8.4 mg/dL (8.4-10.2); GFR NON-AFRICAN AMERICAN > 60
[2018-02-13 06:20] LABS: T4 6.54 ug/dl (5.5-11.0)
[2018-02-13] MEDS: Ipratropium 0.02% Inhal Soln (0.5 mg/2.5 ml) UD IH SCH ×4 (07:33→19:07)
[2018-02-13] MEDS: Acetylcysteine 20% Inhal Soln (4ml) INH SCH ×2 (07:33→19:07)
[2018-02-13] MEDS: Albuterol 0.083% Inhal Sol (2.5 mg/3 mL) UD INH PRN (07:34)
--- NOTE | 2018-02-13 09:21 | CP.PCM.PN ---
Subjective - Date & Time of Evaluation Date of Evaluation: 02/13/18 Time of Evaluation: 09:19 - Subjective Subjective: Seen on mornng rounds, asleep but easily awakens. Well oriented x 3, no complaints of SOB. Continues to have congested, but non-productive cough. Continues to receive potassium supplements daily, but level remains low. Started on methimazole last night, still mildly tachycardic this AM. Blood pressure remains low normal and oxygenation is okay. Repeat CXR done the day prior shows some increased pleural effusions. Hemoglobin is stable. Serum proteins are very low. Dependant edema gradually increasing w/o cyanosis. Neck is supple and trachea midline. Percussion of anterior chest wall is unremarkable. Breath sounds are diminished anteriorly, very distant in LL's posteriorly. Bronchial breathing is still present in the lower lobes in both lungs. No audible wheezing, + scattered rhonchi bilaterally. Heart sounds are distant, regular, tachycardic. Abdomen is soft and non-tender. Dependant edema is essentially around the abdomen and pelvis. Renal consult requested. 2 GM magnesium given again yesterday. Vancomycin dosing adjusted based on trough level. Alkaline phosphatase isoenzymes pending. ?Pulmonary Sport Bed? for rotational and percussive therapy. Objective - Vital Signs/Intake and Output Vital Signs (last 24 hours): Temp Pulse Resp BP Pulse Ox 98.1 F 104 H 18 99/57 L 100 02/13/18 05:00 02/13/18 05:00 02/13/18 05:00 02/13/18 05:00 02/13/18 05:00 - Medications Medications: Current Medications Acetaminophen (Tylenol 325mg Tab) 650 mg PO Q6 PRN PRN Reason: Pain, Mild (1-3)/headache Last Admin: 02/11/18 18:02 Dose: 650 mg Acetazolamide (Diamox 250 Mg Tab) 250 mg PO DAILY [facility] Last Admin: 02/12/18 10:15 Dose: 250 mg Acetylcysteine (Acetylcysteine 20%) 2 ml INH RBID [facility] Last Admin: 02/13/18 07:33 Dose: 2 ml Albuterol Sulfate (Albuterol 0.083% Inhal Aby (2.5 Mg/3 Ml) Ud) 2.5 mg INH RQ4 PRN PRN Reason: Shortness of Breath Last Admin: 02/13/18 07:34 Dose: 2.5 mg Anastrozole (Arimidex 1 Mg Tab) 1 mg PO DAILY [facility] Last Admin: 02/12/18 10:10 Dose: 1 mg Aspirin (Aspirin Chewable) 81 mg PO DAILY [facility] Last Admin: 02/12/18 10:15 Dose: 81 mg Gabapentin (Neurontin) 600 mg PO Q8 [facility] Last Admin: 02/13/18 00:30 Dose: 600 mg Guaifenesin (Mucinex La) 600 mg PO Q12 [facility] Last Admin: 02/12/18 20:43 Dose: 600 mg Piperacillin Sod/Tazobactam (Sod 4.5 gm/ Sodium Chloride) 100 mls @ 100 mls/hr IVPB Q8 [facility]; Protocol Last Admin: 02/13/18 01:30 Dose: 100 mls/hr Vancomycin HCl 1 gm/ Sodium (Chloride) 250 mls @ 166.667 mls/hr IVPB DAILY [facility]; Protocol Last Admin: 02/12/18 11:46 Dose: 166.667 mls/hr Potassium Chloride (Potassium Chloride 20 Meq/100 Ml) 100 mls @ 50 mls/hr IVPB Q2 [facility] Stop: 02/13/18 11:59 Ipratropium [place] (Atrovent) 0.5 mg IH RQID [facility] Last Admin: 02/13/18 07:33 Dose: 0.5 mg Methimazole (Tapazole) 5 mg PO QPM [facility] Last Admin: 02/12/18 20:44 Dose: 5 mg Potassium Chloride (Potassium Chloride Oral Soln) 40 meq PO DAILY [facility] Last Admin: 02/12/18 10:18 Dose: 40 meq Saccharomyces Boulardii (Florastor) 250 mg PO DAILY [facility] Last Admin: 02/12/18 10:15 Dose: 250 mg - Labs Labs: 02/13/18 04:20 02/13/18 04:20 PT 19.2 Seconds (9.8-13.1) H 02/08/18 00:40 INR 1.7 02/08/18 00:40 APTT 36.5 Seconds (25.6-37.1) 02/08/18 00:40 Assessment and Plan (1) Pneumonia Status: Suspected (2) Sepsis Status: Acute (3) Chronic hypercapnic respiratory failure Status: Chronic (4) COPD (chronic obstructive pulmonary disease) Status: Chronic (5) Hyperthyroidism Status: Chronic (6) Lymphedema of arm Status: Chronic (7) Pleural effusion Status: Acute
[2018-02-13] MEDS: Saccharomyces Boulardi 250 mg Cap PO SCH (10:16)
[2018-02-13] MEDS: guaiFENesin 600 mg ER Tab PO SCH ×2 (10:16→21:04)
[2018-02-13] MEDS: Potassium Chloride 20 mEq 100 ML IVPB SCH ×2 (10:17→13:36)
[2018-02-13] MEDS: Potassium Chloride 20 mEq/15 ml LIQ UD PO SCH (10:18)
--- NOTE | 2018-02-13 10:22 | CP.PCM.CON ---
History of Present Illness - History of Present Illness History of Present Illness: this patient who is 67 years of age female was called to see her for renal consultation because of persistent hypokalemia. patient initially presented to his fever and cough end and she was complaining of weakness tiredness and she came from half-way where patient has been treated was intravenous magnesium as well as potassium chloride supplement. And continued to have hypokalemia. Patient reported that the diarrhea has been s ubsided and she is moving her bowel about 2-3 times a day . No nausea patient has multiple told of past medical and surgical history as reported below PMHx: Chronic Respiratory Failure , CHF (systolic+diastolic), COPD, bilateral metastatic breast CA to shoulder s/p chemo-XRT 8 years ago (s/p humerus resection) with chronic lymphedema RUE, HTN, hyperthyroidism, anemia of chronic disease, SVT, osteoporosis, R cephalic vein thrombosis, peripheral neuropathy, anxiety PSHx: bilateral mastectomies R 1998/L 2008, total shoulder replacement (2003) + removal (2013), cervical and lumbar fusions 2007, cholecystectomy, tubal ligation, groin cyst removal; trach placed 07/2016, removed 11/04/16 Allergies: NKDA; allergy to paper tape Medications: Per med rec Family Hx: Family history of cancer including ovarian, colon, breast, pancreatic and lung cancer Social Hx: Lives with child and grandchildren, quit smoking 2 years ago. Used smoke PPD X 50 yrs, no current EtOH Review of Systems - Constitutional Constitutional: Anorexia. absent: Chills - EENT Eyes: absent: Exophthalmos Nose/Mouth/Throat: absent: Epistaxis - Breasts Breasts: absent: Change in Shape - Cardiovascular Cardiovascular: absent: Acrocyanosis, Dyspnea, Leg Edema - Respiratory Respiratory: As Per HPI - Gastrointestinal Gastrointestinal: Abdominal Pain. absent: Coffee Ground Emesis - Genitourinary Genitourinary: Nocturia - Musculoskeletal Musculoskeletal: Muscle Weakness. absent: Numbness - Integumentary Integumentary: Dry Skin - Neurological Neurological: absent: Confusion, Dizziness, Focal Weakness - Endocrine Endocrine: Fatigue - Hematologic/Lymphatic Hematologic: absent: Easy Bleeding Past Patient History - Infectious Disease Hx of Infectious Diseases: None - Tetanus Immunizations Tetanus Immunization: Unknown - Past Medical History & Family History Past Medical History?: Yes - Past Social History Smoking Status: Former Smoker Chewing Tobacco Use: No Cigar Use: No Alcohol: None Drugs: Denies Home Situation {Lives}: Other (Subacute rehabilitation) - CARDIAC Hx Congestive Heart Failure: Yes (Diastolic) Hx Hypertension: Yes - PULMONARY Hx Chronic Obstructive Pulmonary Disease (COPD): Yes Hx Pneumonia: Yes Other/Comment: Pleural effusion - NEUROLOGICAL Other/Comment: Peripheral neuropathy - HEENT Other/Comment: Buccal abscess/osteo of mandible - RENAL Hx Chronic Kidney Disease: No - ENDOCRINE/METABOLIC Hx Hyperthyroidism: Yes - HEMATOLOGICAL/ONCOLOGICAL Hx Anemia: Yes Hx Cancer: Yes (breast) Hx Human Immunodeficiency Virus (HIV): No - INTEGUMENTARY Hx Cellulitis: Yes (recurring RUE) Other/Comment: Chronic lymphedema right upper extremity - MUSCULOSKELETAL/RHEUMATOLOGICAL Hx Arthritis: Yes Hx Falls: Yes (5 months ago) Hx Fractures: Yes Hx Osteoporosis: Yes - GASTROINTESTINAL Hx Clostridium Difficile: Yes Hx Gall Bladder Disease: Yes - GENITOURINARY/GYNECOLOGICAL Hx Genitourinary Disorders: No - PSYCHIATRIC Hx Anxiety: Yes Hx Substance Use: No - SURGICAL HISTORY Hx Mastectomy: Yes (right in 1998; left in 2008) Hx Orthopedic Surgery: Yes (2003 rigtht shoulder prosthesis, removal of hardware 2013) Hx Tubal Ligation: Yes Other/Comment: shoulder and humerous replacement with joint space infection and eventual removal of hardware in right shoulder and chronic lymphedema of RUE, groin cyst removal, cervical spinal fusion 2007, lumbar spinal fusion 2007. Tracheostomy. - ANESTHESIA Hx Anesthesia: Yes Hx Anesthesia Reactions: No Hx Malignant Hyperthermia: No Meds Allergies/Adverse Reactions: Allergies Allergy/AdvReac Type Severity Reaction Status Date / Time paper tape Allergy RASH Uncoded 02/08/18 02:36 - Medications Medications: Current Medications Acetaminophen (Tylenol 325mg Tab) 650 mg PO Q6 PRN PRN Reason: Pain, Mild (1-3)/headache Last Admin: 02/11/18 18:02 Dose: 650 mg Acetazolamide (Diamox 250 Mg Tab) 250 mg PO DAILY ON LICENSE OF [facility] Last Admin: 02/12/18 10:15 Dose: 250 mg Acetylcysteine (Acetylcysteine 20%) 2 ml INH RBID [facility] Last Admin: 02/13/18 07:33 Dose: 2 ml Albuterol Sulfate (Albuterol 0.083% Inhal Aby (2.5 Mg/3 Ml) Ud) 2.5 mg INH RQ4 PRN PRN Reason: Shortness of Breath Last Admin: 02/13/18 07:34 Dose: 2.5 mg Anastrozole (Arimidex 1 Mg Tab) 1 mg PO DAILY ON [facility] Last Admin: 02/13/18 10:11 Dose: 1 mg Aspirin (Aspirin Chewable) 81 mg PO DAILY ON [facility] Last Admin: 02/12/18 10:15 Dose: 81 mg Gabapentin (Neurontin) 600 mg PO Q8 ON [facility] OF [facility] Last Admin: 02/13/18 00:30 Dose: 600 mg Guaifenesin (Mucinex La) 600 mg PO Q12 ON [facility] OF [facility] Last Admin: 02/12/18 20:43 Dose: 600 mg Piperacillin Sod/Tazobactam (Sod 4.5 gm/ Sodium Chloride) 100 mls @ 100 mls/hr IVPB Q8 ON [facility] OF [facility]; Protocol Last Admin: 02/13/18 01:30 Dose: 100 mls/hr Vancomycin HCl 1 gm/ Sodium (Chloride) 250 mls @ 166.667 mls/hr IVPB DAILY ON [facility] OF [facility]; Protocol Last Admin: 02/12/18 11:46 Dose: 166.667 mls/hr Potassium Chloride (Potassium Chloride 20 Meq/100 Ml) 100 mls @ 50 mls/hr IVPB Q2 ON [facility] OF [facility] Stop: 02/13/18 11:59 Ipratropium [place] (Atrovent) 0.5 mg IH RQID ON [facility] OF [facility] Last Admin: 02/13/18 07:33 Dose: 0.5 mg Methimazole (Tapazole) 5 mg PO QPM ON [facility] OF [facility] Last Admin: 02/12/18 20:44 Dose: 5 mg Potassium Chloride (Potassium Chloride Oral Soln) 40 meq PO DAILY ON [facility] Last Admin: 02/12/18 10:18 Dose: 40 meq Saccharomyces Boulardii (Florastor) 250 mg PO DAILY ON [facility] OF [facility] Last Admin: 02/12/18 10:15 Dose: 250 mg Physical Exam - Constitutional Appears: No Acute Distress - Eye Exam Eye Exam: Conjunctival injection - ENT Exam ENT Exam: Mucous Membranes Moist - Respiratory Exam Respiratory Exam: NORMAL BREATHING PATTERN. absent: Chest Wall Tenderness - Cardiovascular Exam Cardiovascular Exam: absent: Gallop, JVD, Rubs - GI/Abdominal Exam GI & Abdominal Exam: Normal Bowel Sounds. absent: Guarding - Extremities Exam Extremities exam: Negative for: calf tenderness Additional comments: lymphedema of the right arm - Back Exam Back exam: absent: CVA tenderness (L), CVA tenderness (R) - Neurological Exam Neurological exam: Alert - Psychiatric Exam Psychiatric exam: Normal Affect Results - Vital Signs Recent Vital Signs: Last Vital Signs Temp 97.9 F 02/13/18 09:25 Pulse 107 H 02/13/18 09:25 Resp 20 02/13/18 09:25 BP 94/51 L 02/13/18 09:25 Pulse Ox 92 L 02/13/18 09:25 - Labs Result Diagrams: 02/13/18 04:20 02/13/18 04:20 Labs: Laboratory Results - last 24 hr 02/10/18 02/12/18 02/12/18 12:10 11:18 21:41 WBC RBC Hgb Hct MCV MCH MCHC RDW Plt Count MPV Neut % (Auto) Lymph % (Auto) [place] % (Auto) Eos % (Auto) Baso % (Auto) Neut # (Auto) Lymph # (Auto) [place] # (Auto) Eos # (Auto) Baso # (Auto) Sodium Potassium Chloride Carbon Dioxide Anion Gap BUN Creatinine Est GFR ( Amer) Est GFR (Non-Af Amer) POC Glucose (mg/dL) 78 89 Random Glucose Calcium Total Bilirubin AST ALT Alkaline Phosphatase 288 H Total Protein Albumin Globulin Albumin/Globulin Ratio Thyroxine (T4) TSH 3rd Generation 02/13/18 02/13/18 04:20 04:20 WBC 9.9 RBC 3.31 L Hgb 8.8 L Hct 28.9 L MCV 87.2 D MCH 26.7 L MCHC 30.6 L RDW 21.3 H Plt Count 389 MPV 6.7 L Neut % (Auto) 69.5 Lymph % (Auto) 13.3 L [place] % (Auto) 12.3 H Eos % (Auto) 3.9 Baso % (Auto) 1.0 Neut # (Auto) 6.9 Lymph # (Auto) 1.3 [place] # (Auto) 1.2 H Eos # (Auto) 0.4 Baso # (Auto) 0.1 Sodium 139 Potassium 3.1 L Chloride 109 H Carbon Dioxide 31 H Anion Gap 2 L BUN < 2 L Creatinine 0.3 L Est GFR ( Amer) > 60 Est GFR (Non-Af Amer) > 60 POC Glucose (mg/dL) Random Glucose 64 L Calcium 8.4 Total Bilirubin < 0.1 L AST 71 H ALT 50 Alkaline Phosphatase 272 H Total Protein 4.3 L Albumin 1.7 L Globulin 2.6 Albumin/Globulin Ratio 0.6 L Thyroxine (T4) 6.54 TSH 3rd Generation < 0.02 L Assessment & Plan (1) Fever Status: Acute (2) Pleural effusion Status: Acute (3) Hx of breast cancer Status: Acute (4) Hypokalemia Assessment and Plan: hypokalemia most likely related to diarrhea initally and perhaps patient has hypomagnesemia initially from some diarrhea? my recommendation Continue potassium supplement up to 60 perhaps up to 80 meq daily until the potassium is corrected. keep serum magnesium in the upper limit of normal ,and we will be adding magnesium orally for couple of days Spot urine for potassium just to make sure she does not have potassium losing nephropathy . Status: Acute
--- NOTE | 2018-02-13 12:34 | CP.PCM.PN ---
<Per Ortega - Last Filed: 02/13/18 12:31> Subjective - Date & Time of Evaluation Date of Evaluation: 02/13/18 Time of Evaluation: 12:31 - Subjective Subjective: 67 yo female seen and evaluated at bedside resting comfortably. States that she is breathing well and that she is eating ok. States that she did have some diarrhea this morning. States that she feels like she is coughing less. Denies N/V/f/c today. No other acute complaints Objective - Vital Signs/Intake and Output Vital Signs (last 24 hours): Temp Pulse Resp BP Pulse Ox 97.9 F 107 H 20 94/51 L 92 L 02/13/18 09:25 02/13/18 09:25 02/13/18 09:25 02/13/18 09:25 02/13/18 09:25 - Medications Medications: Current Medications Acetaminophen (Tylenol 325mg Tab) 650 mg PO Q6 PRN PRN Reason: Pain, Mild (1-3)/headache Last Admin: 02/11/18 18:02 Dose: 650 mg Acetazolamide (Diamox 250 Mg Tab) 250 mg PO DAILY [facility] Last Admin: 02/13/18 10:16 Dose: 250 mg Acetylcysteine (Acetylcysteine 20%) 2 ml INH RBID [facility] Last Admin: 02/13/18 07:33 Dose: 2 ml Albuterol Sulfate (Albuterol 0.083% Inhal Aby (2.5 Mg/3 Ml) Ud) 2.5 mg INH RQ4 PRN PRN Reason: Shortness of Breath Last Admin: 02/13/18 07:34 Dose: 2.5 mg Anastrozole (Arimidex 1 Mg Tab) 1 mg PO DAILY [facility] Last Admin: 02/13/18 10:11 Dose: 1 mg Aspirin (Aspirin Chewable) 81 mg PO DAILY [facility] Last Admin: 02/13/18 10:15 Dose: 81 mg Gabapentin (Neurontin) 600 mg PO Q8 [facility] Last Admin: 02/13/18 10:17 Dose: 600 mg Guaifenesin (Mucinex La) 600 mg PO Q12 [facility] Last Admin: 02/13/18 10:16 Dose: 600 mg Piperacillin Sod/Tazobactam (Sod 4.5 gm/ Sodium Chloride) 100 mls @ 100 mls/hr IVPB Q8 [facility]; Protocol Last Admin: 02/13/18 01:30 Dose: 100 mls/hr Vancomycin HCl 1 gm/ Sodium (Chloride) 250 mls @ 166.667 mls/hr IVPB DAILY [facility]; Protocol Last Admin: 02/13/18 10:27 Dose: 166.667 mls/hr Ipratropium [place] (Atrovent) 0.5 mg IH RQID [facility] Last Admin: 02/13/18 11:32 Dose: 0.5 mg Magnesium Oxide (Mag-Ox) 400 mg PO BID [facility] Methimazole (Tapazole) 5 mg PO QPM [facility] Last Admin: 02/12/18 20:44 Dose: 5 mg Potassium Chloride (Potassium Chloride Oral Soln) 40 meq PO DAILY [facility] Last Admin: 02/13/18 10:18 Dose: 40 meq Saccharomyces Boulardii (Florastor) 250 mg PO DAILY [facility] Last Admin: 02/13/18 10:16 Dose: 250 mg - Labs Labs: 02/13/18 04:20 02/13/18 04:20 PT 19.2 Seconds (9.8-13.1) H 02/08/18 00:40 INR 1.7 02/08/18 00:40 APTT 36.5 Seconds (25.6-37.1) 02/08/18 00:40 - Constitutional Appears: Well, Non-toxic, No Acute Distress, Chronically Ill - Head Exam Head Exam: NORMAL INSPECTION - Respiratory Exam Respiratory Exam: Decreased Breath Sounds, Rales. absent: Wheezes, Respiratory Distress - Cardiovascular Exam Cardiovascular Exam: REGULAR RHYTHM, +S1, +S2 - GI/Abdominal Exam GI & Abdominal Exam: Soft, Normal Bowel Sounds. absent: Tenderness - Neurological Exam Neurological Exam: Alert, Awake, Oriented x3 - Psychiatric Exam Psychiatric exam: Normal Affect, Normal Mood Assessment and Plan - Assessment and Plan (Free Text) Assessment: 67 y/o female with pmhx of COPD, sys/leigh CHF, HTN, hx breast CA and multiple other co-morbidities [facility] evaluation of fever, cough and abnormal blood work. Patient is admitted for sepsis, pneumonia, and hypokalemia. Plan: 1. Sepsis - sepsis criteria met on admission - can be secondary to pneumonia/bacteremia - blood cx - Staph aureus and Cornebacterium - Sputum culture: Gram neg - afebrile - CXR - no interval changes - Chest CT - dense left lower lobe pneumonia appreciated likely intermixed atelectasis only minimal mucoid material at left mainstem bronchus and inferior trachea; minimal right lower lobe pneumonia not excluded through dependent at electasis and compression atelectasis felt to represent the majority of airspace disease at the right lower lobe; minimal bilateral pleural effusions, R>L - Pulmonary and ID consult appreciated - C/W As per ID: - vancomycin 1gm IV Q12( Day 6) - zosyn 4.5gm IV Q8( Day 6) - D/C amikacin sulfate 250mg IVPB and clarithromycin as per ID 2. COPD - chronic, controlled - 2L NC - Ipratropium .5 mg IH RQID - Use albuterol prn 3. C. diff - r/o - C.diff Ag and toxin - negative 02/09 4. Persistent Hypokalemia - K: 3.1 - Restart methamozole: Hyperthyroidism may be leading to hypokalemia - 20 KCL IVP given today - 40 KCL PO daily - 2mg of Mg+ given today - F/U with BMP 5. Low blood pressure - asymptomatic -Echo (November) - 60-65% EF -BUN <2, creat 0.3 (02/10) -will monitor for any changes 6. Hyperthyroidism - Start Methamazole 7. Breast cancer - chronic - Anastrozole 1mg PO daily 8. DVT prophylaxis - Lovenox 40mg SC daily <Georgia Camilo - Last Filed: 02/13/18 16:59> Objective - Vital Signs/Intake and Output Vital Signs (last 24 hours): Temp Pulse Resp BP Pulse Ox 97.6 F 107 H 17 115/69 100 02/13/18 15:55 02/13/18 15:55 02/13/18 15:55 02/13/18 15:55 02/13/18 15:55 - Medications Medications: Current Medications Acetaminophen (Tylenol 325mg Tab) 650 mg PO Q6 PRN PRN Reason: Pain, Mild (1-3)/headache Last Admin: 02/11/18 18:02 Dose: 650 mg Acetazolamide (Diamox 250 Mg Tab) 250 mg PO DAILY [facility] Last Admin: 02/13/18 10:16 Dose: 250 mg Acetylcysteine (Acetylcysteine 20%) 2 ml INH RBID [facility] Last Admin: 02/13/18 07:33 Dose: 2 ml Albuterol Sulfate (Albuterol 0.083% Inhal Aby (2.5 Mg/3 Ml) Ud) 2.5 mg INH RQ4 PRN PRN Reason: Shortness of Breath Last Admin: 02/13/18 07:34 Dose: 2.5 mg Anastrozole (Arimidex 1 Mg Tab) 1 mg PO DAILY [facility] Last Admin: 02/13/18 10:11 Dose: 1 mg Aspirin (Aspirin Chewable) 81 mg PO DAILY [facility] Last Admin: 02/13/18 10:15 Dose: 81 mg Gabapentin (Neurontin) 600 mg PO Q8 [facility] Last Admin: 02/13/18 10:17 Dose: 600 mg Guaifenesin (Mucinex La) 600 mg PO Q12 [facility] Last Admin: 02/13/18 10:16 Dose: 600 mg Piperacillin Sod/Tazobactam (Sod 4.5 gm/ Sodium Chloride) 100 mls @ 100 mls/hr IVPB Q8 [facility]; Protocol Last Admin: 02/13/18 11:00 Dose: 100 mls/hr Vancomycin HCl 1 gm/ Sodium (Chloride) 250 mls @ 166.667 mls/hr IVPB DAILY [facility]; Protocol Last Admin: 02/13/18 10:27 Dose: 166.667 mls/hr Ipratropium [place] (Atrovent) 0.5 mg IH RQID [facility] Last Admin: 02/13/18 15:37 Dose: 0.5 mg Magnesium Oxide (Mag-Ox) 400 mg PO BID [facility] Last Admin: 02/13/18 13:35 Dose: 400 mg Methimazole (Tapazole) 5 mg PO QPM [facility] Last Admin: 02/12/18 20:44 Dose: 5 mg Potassium Chloride (Potassium Chloride Oral Soln) 40 meq PO DAILY [facility] Last Admin: 02/13/18 10:18 Dose: 40 meq Saccharomyces Boulardii (Florastor) 250 mg PO DAILY [facility] Last Admin: 02/13/18 10:16 Dose: 250 mg - Labs Labs: 02/13/18 04:20 02/13/18 04:20 PT 19.2 Seconds (9.8-13.1) H 02/08/18 00:40 INR 1.7 02/08/18 00:40 APTT 36.5 Seconds (25.6-37.1) 02/08/18 00:40 Attending/Attestation - Attestation I have personally seen and examined this patient.: Yes I have fully participated in the care of the patient.: Yes I have reviewed all pertinent clinical information, including history, physical exam and plan: Yes Notes (Text): Persistent Hypokalemia despite daily supplementation - Nephrology consulted , discussed case with Dr Norton
[2018-02-13] MEDS: Magnesium Oxide 400 mg Tab UD PO SCH ×2 (13:35→18:18)
--- NOTE | 2018-02-13 17:28 | PN ---
DATE: 02/13/2018 ENDO FOLLOWUP NOTE LOCATION: In room 411. SUBJECTIVE: This is a 67-year-old female with recent admission for acute exacerbation of COPD with supervening congestive heart failure and is now being followed closely for metabolic management. She also has overt hyperthyroidism and admits to constitutional symptoms while in the jail with easy fatigability and tiredness and episodic bouts of dizziness and lightheadedness as noted. LABORATORY DATA: Her latest chemistries today showed a BUN of 2, sodium 139, potassium 3.1, chloride 109, CO2 of 31, glucose 64, and creatinine 0.3. Her latest thyroid studies showed a TSH of less than . The main thyroxine levels and free T4 levels are still pending at this time. ASSESSMENT AND PLAN: So we will continue the same modified dosing of the Tapazole with an added dose of Tapazole 5 mg at dinnertime and we will continue the 10 mg after breakfast daily in the morning as ordered. We will obtain serial chemistries and supplement accordingly as needed. We will follow. Polly Vu MD
[2018-02-13] MEDS: methIMAzole 5 MG TAB PO SCH (18:20)
[2018-02-14] MEDS: Piperacillin/Tazobact 4.5 GM in Sodium Chloride 0.9% 100 ML IVPB SCH (00:23)
[2018-02-14 05:49] LABS: CALCIUM 8.5 mg/dL (8.4-10.2); GFR NON-AFRICAN AMERICAN > 60
[2018-02-14 06:12] LABS: BLOOD UREA NITROGEN < 2 mg/dl (7-17)
[2018-02-14] MEDS: Acetylcysteine 20% Inhal Soln (4ml) INH SCH (07:25)
[2018-02-14] MEDS: Ipratropium 0.02% Inhal Soln (0.5 mg/2.5 ml) UD IH SCH ×3 (07:25→15:36)
[2018-02-14] MEDS: Magnesium Oxide 400 mg Tab UD PO SCH (08:32)
[2018-02-14] MEDS: Saccharomyces Boulardi 250 mg Cap PO SCH (08:32)
[2018-02-14] MEDS: guaiFENesin 600 mg ER Tab PO SCH (08:33)
[2018-02-14] MEDS: Potassium Chloride 20 mEq 100 ML IVPB SCH ×2 (08:34→11:45)
--- NOTE | 2018-02-14 08:56 | CP.PCM.PN ---
Subjective - Date & Time of Evaluation Date of Evaluation: 02/14/18 Time of Evaluation: 08:56 - Subjective Subjective: Progress has been slow, but improvement is noted. Hypokalemia still present, but Mg and K+ supplementation is ongoing. Vital signs have remained stable, she has been afebrile since admission. Heart rate is mildly tachycardic and BP low normal. Nutritional status needs further improvement (tot prot/alb both quite low). On methimazole 5MG once daily in the PM, today is 6th day of Vanco/Zosyn. Increased dependant edema and pleural effusions are likely nutritional related. Awake, eating breakfast, appetite is a little improved. Dependant edema 1+ (abd/pelvis), no cyanosis. RUE lymphedema is about the same. Neck is supple and trachea is midline. Dullness is still present at the lung bases posteriorly. Breath sounds are diminished bilaterally, especially in the bases. Bronchial breath sounds persist in the lung bases, no wheezing. Few scattered sonorous rhonchi are present, occasional rales. Heart sounds are distant , regular, mild tachycardia. Abdomen is soft and non-tender with + bowel sounds. Continue antibiotic therapy for one week more. Probably needs PICC line prior to discharge to [facility]. Needs improved nutrition, maybe appetite stimulant (had been on Marinol, but not effective). K+ supplements as needed, continue PO magnesium. Resume physical therapy and mobilize as able. Continue aerosol therapy and mucolytic plus CPT. Continue methimazole 5MG PO in PM. Acetazolamide can remain at 250 Mg once daily. Will need followup chest x-ray in about one week. Objective - Vital Signs/Intake and Output Vital Signs (last 24 hours): Temp Pulse Resp BP Pulse Ox 97.3 F L 99 H 20 85/48 L 97 02/14/18 08:22 02/14/18 08:22 02/14/18 08:22 02/14/18 08:22 02/14/18 08:22 Intake and Output: 02/13/18 02/14/18 23:59 11:59 Intake Total 1510 Balance 1510 - Medications Medications: Current Medications Acetaminophen (Tylenol 325mg Tab) 650 mg PO Q6 PRN PRN Reason: Pain, Mild (1-3)/headache Last Admin: 02/11/18 18:02 Dose: 650 mg Acetazolamide (Diamox 250 Mg Tab) 250 mg PO DAILY [facility] Last Admin: 02/14/18 08:32 Dose: 250 mg Acetylcysteine (Acetylcysteine 20%) 2 ml INH RBID [facility] Last Admin: 02/14/18 07:25 Dose: 2 ml Albuterol Sulfate (Albuterol 0.083% Inhal Aby (2.5 Mg/3 Ml) Ud) 2.5 mg INH RQ4 PRN PRN Reason: Shortness of Breath Last Admin: 02/13/18 07:34 Dose: 2.5 mg Anastrozole (Arimidex 1 Mg Tab) 1 mg PO DAILY [facility] Last Admin: 02/14/18 08:30 Dose: 1 mg Aspirin (Aspirin Chewable) 81 mg PO DAILY [facility] Last Admin: 02/14/18 08:31 Dose: 81 mg Gabapentin (Neurontin) 600 mg PO Q8 [facility] Last Admin: 02/14/18 08:33 Dose: 600 mg Guaifenesin (Mucinex La) 600 mg PO Q12 [facility] Last Admin: 02/14/18 08:33 Dose: 600 mg Vancomycin HCl 1 gm/ Sodium (Chloride) 250 mls @ 166.667 mls/hr IVPB DAILY [facility]; Protocol Last Admin: 02/14/18 08:35 Dose: 166.667 mls/hr Potassium Chloride (Potassium Chloride 20 Meq/100 Ml) 100 mls @ 50 mls/hr IVPB Q2 [facility] Stop: 02/14/18 11:59 Last Admin: 02/14/18 08:34 Dose: 50 mls/hr Ipratropium [place] (Atrovent) 0.5 mg IH RQID [facility] Last Admin: 02/14/18 07:25 Dose: 0.5 mg Magnesium Oxide (Mag-Ox) 400 mg PO BID [facility] Last Admin: 02/14/18 08:32 Dose: 400 mg Methimazole (Tapazole) 5 mg PO QPM [facility] Last Admin: 02/13/18 18:20 Dose: 5 mg Potassium Chloride (Potassium Chloride Oral Soln) 40 meq PO DAILY [facility] Last Admin: 02/13/18 10:18 Dose: 40 meq Saccharomyces Boulardii (Florastor) 250 mg PO DAILY [facility] Last Admin: 02/14/18 08:32 Dose: 250 mg - Labs Labs: 02/13/18 04:20 02/14/18 05:00 PT 19.2 Seconds (9.8-13.1) H 02/08/18 00:40 INR 1.7 02/08/18 00:40 APTT 36.5 Seconds (25.6-37.1) 02/08/18 00:40 Assessment and Plan (1) Pneumonia Status: Acute (2) Sepsis Status: Resolved (3) Chronic hypercapnic respiratory failure Status: Chronic (4) COPD (chronic obstructive pulmonary disease) Status: Chronic (5) Hyperthyroidism Status: Chronic (6) Lymphedema of arm Status: Chronic (7) Pleural effusion Status: Acute
--- NOTE | 2018-02-14 08:58 | PQF ---
PROVIDER RESPONSE TEXT: Bilateral basal pneumonia, bacterial, Klebsiella oxytoca. REVIEWER QUERY TEXT: Pneumonia Specificity Pneumonia is documented in the Medical Record. Please specify the type of pneumonia and the causative organism (includes probable or suspected) if known Such as: Type: -- Aspiration pneumonia (please also specify the aspirate) -- Bacterial (please document suspected or probable organism) -- Bronchopneumonia (please document suspected or probable organism) -- Interstitial pneumonia -- Organizing pneumonia / BOOP -- Tuberculosis, pulmonary -- Viral -- Other, please specify The patient's Clinical Indicators include: Patient with a fever of 102 on 02/06/18 and cough x 1 week. Resides in a [facility]. CT Chest + pneumonia. Sputum CS: Klebsiella Oxytoca. Blood CS: Staphlococcus Aureus, Corynebacterium Species Rx: IVAB Query created by: Myriam Burger on 02/13/2018 2:19 PM Electronically signed by: Bala Benz MD 02/14/2018 8:54 AM
--- NOTE | 2018-02-14 10:55 | RAD ---
Date of service: 02/14/2018 PROCEDURE: CHEST RADIOGRAPH, 1 VIEW HISTORY: pleural effusion COMPARISON: None available. FINDINGS: LUNGS: Left basilar airspace disease persists with borderline right basilar airspace disease suggested right breast adds to density at the right base. Infiltrate is felt to be likely here. PLEURA: Bilateral pleural effusions are not excluded though limited at the right and mild at the left. No pneumothorax bilaterally. CARDIOVASCULAR: Normal. OSSEOUS STRUCTURES: Partial amputation right humerus reiterated with surgical clips identified in the bilateral axillary regions. Orthopedic anchor once again identified at the left humeral head. Partial resection of the left clavicle again noted distally. Finally, cervical spinal fusion hardware identified. VISUALIZED UPPER ABDOMEN: Unremarkable. OTHER FINDINGS: None. IMPRESSION: Limited airspace disease and pleural effusion are difficult to exclude the right base and are unchanged at the left remaining mild. Remaining lung corral are clear. No pulmonary vascular congestion evident.
[2018-02-14] MEDS: Potassium Chloride 20 mEq/15 ml LIQ UD PO SCH (11:43)
--- NOTE | 2018-02-14 11:43 | CP.PCM.PN ---
Subjective - Date & Time of Evaluation Date of Evaluation: 02/14/18 Time of Evaluation: 11:41 - Subjective Subjective: patient is awake and conscious Complaining of generalized weakness and tiredness Objective - Vital Signs/Intake and Output Vital Signs (last 24 hours): Temp Pulse Resp BP Pulse Ox 97.3 F L 98 H 20 99/51 L 97 02/14/18 08:22 02/14/18 10:50 02/14/18 08:22 02/14/18 10:50 02/14/18 10:50 Intake and Output: 02/14/18 02/14/18 06:59 18:59 Intake Total 1510 Balance 1510 - Medications Medications: Current Medications Acetaminophen (Tylenol 325mg Tab) 650 mg PO Q6 PRN PRN Reason: Pain, Mild (1-3)/headache Last Admin: 02/11/18 18:02 Dose: 650 mg Acetazolamide (Diamox 250 Mg Tab) 250 mg PO DAILY [facility] Last Admin: 02/14/18 08:32 Dose: 250 mg Acetylcysteine (Acetylcysteine 20%) 2 ml INH RBID ANDREAS Last Admin: 02/14/18 07:25 Dose: 2 ml Albuterol Sulfate (Albuterol 0.083% Inhal Aby (2.5 Mg/3 Ml) Ud) 2.5 mg INH RQ4 PRN PRN Reason: Shortness of Breath Last Admin: 02/13/18 07:34 Dose: 2.5 mg Anastrozole (Arimidex 1 Mg Tab) 1 mg PO DAILY [facility] Last Admin: 02/14/18 08:30 Dose: 1 mg Aspirin (Aspirin Chewable) 81 mg PO DAILY [facility] Last Admin: 02/14/18 08:31 Dose: 81 mg Gabapentin (Neurontin) 600 mg PO Q8 ANDREAS Last Admin: 02/14/18 08:33 Dose: 600 mg Guaifenesin (Mucinex La) 600 mg PO Q12 ANDREAS Last Admin: 02/14/18 08:33 Dose: 600 mg Vancomycin HCl 1 gm/ Sodium (Chloride) 250 mls @ 166.667 mls/hr IVPB DAILY ANDREAS; Protocol Last Admin: 02/14/18 08:35 Dose: 166.667 mls/hr Potassium Chloride (Potassium Chloride 20 Meq/100 Ml) 100 mls @ 50 mls/hr IVPB Q2 [facility] Stop: 02/14/18 11:59 Last Admin: 02/14/18 08:34 Dose: 50 mls/hr Ipratropium [place] (Atrovent) 0.5 mg IH RQID [facility] Last Admin: 02/14/18 11:37 Dose: 0.5 mg Magnesium Oxide (Mag-Ox) 400 mg PO BID [facility] Last Admin: 02/14/18 08:32 Dose: 400 mg Methimazole (Tapazole) 5 mg PO QPM [facility] Last Admin: 02/13/18 18:20 Dose: 5 mg Potassium Chloride (Potassium Chloride Oral Soln) 40 meq PO DAILY [facility] Last Admin: 02/13/18 10:18 Dose: 40 meq Saccharomyces Boulardii (Florastor) 250 mg PO DAILY [facility] Last Admin: 02/14/18 08:32 Dose: 250 mg - Labs Labs: 02/13/18 04:20 02/14/18 05:00 PT 19.2 Seconds (9.8-13.1) H 02/08/18 00:40 INR 1.7 02/08/18 00:40 APTT 36.5 Seconds (25.6-37.1) 02/08/18 00:40 - Constitutional Appears: No Acute Distress - Eye Exam Eye Exam: Conjunctival injection - ENT Exam ENT Exam: Mucous Membranes Moist - Neck Exam Neck Exam: absent: Lymphadenopathy - Respiratory Exam Respiratory Exam: NORMAL BREATHING PATTERN. absent: Chest Wall Tenderness - Cardiovascular Exam Cardiovascular Exam: absent: Gallop, JVD, Rubs - GI/Abdominal Exam GI & Abdominal Exam: Soft, Normal Bowel Sounds - Extremities Exam Extremities Exam: absent: Calf Tenderness - Back Exam Back Exam: absent: CVA tenderness (L), CVA tenderness (R) - Neurological Exam Neurological Exam: Alert - Psychiatric Exam Psychiatric exam: Normal Affect - Skin Skin Exam: absent: Cyanosis Assessment and Plan (1) Fever Status: Acute (2) Pleural effusion Status: Acute (3) Hx of breast cancer Status: Acute (4) Hypokalemia Assessment & Plan: hypokalemia persisted Serum magnesium up 1.9 we will keep it in the upper limit of normal The plan Continue home magnesium and potassium supplement increase oral potassium 40 mEq twice a day by mouth Status: Acute
[2018-02-14] MEDS ORDERED: Magnesium Oxide 400 mg Tab UD PO SCH (12:00)
--- NOTE | 2018-02-14 12:14 | CP.PCM.DIS ---
Provider - Provider Date of Admission: 02/08/18 02:12 Attending physician: Darren Olsen MD Primary care physician: Demar Consults: Endocrinology - Dr. Horace VAZQUEZ - Dr. Obrien Nephrology - Dr. Norton Podiatry - Dr. Carlson Pulmonology - Dr. Benz Time Spent in preparation of Discharge (in minutes): 30 Diagnosis - Discharge Diagnosis (1) Pneumonia Status: Acute Priority: High Comment: Continue with vancomycin and zosyn through PICC line and follow up with Dr. Benz Hospital Course - Lab Results Lab Results: Micro Results 02/13/18 04:20 Blood Blood Culture - Preliminary NO GROWTH AFTER 24 HOURS 02/08/18 01:10 Blood Blood Culture - Final NO GROWTH AFTER 5 DAYS 02/08/18 01:10 Blood Gram Stain - Final TEST NOT PERFORMED 02/09/18 07:40 Sputum Gram Stain - Final 02/09/18 07:40 Sputum Sputum Culture - Final Klebsiella Oxytoca 02/08/18 00:40 Blood S.aureus & Coag-Neg Staph PNA FISH - Final 02/08/18 00:40 Blood Blood Culture - Final Staphylococcus Aureus Corynebacterium Species 02/08/18 00:40 Blood Gram Stain - Final 02/08/18 03:55 Urine Urine Culture - Final 10-50,000 CFU/ML. MULTIPLE SPECIES. PROBABLE CONTAMINATION. Most Recent Lab Values WBC 9.9 K/uL (4.8-10.8) 02/13/18 04:20 RBC 3.31 Mil/uL (3.80-5.20) L 02/13/18 04:20 Hgb 8.8 g/dL (12.0-16.0) L 02/13/18 04:20 Hct 28.9 % (34.0-47.0) L 02/13/18 04:20 MCV 87.2 fl (81.0-99.0) D 02/13/18 04:20 MCH 26.7 pg (27.0-31.0) L 02/13/18 04:20 MCHC 30.6 g/dL (33.0-37.0) L 02/13/18 04:20 RDW 21.3 % (11.5-14.5) H 02/13/18 04:20 Plt Count 389 K/uL (130-400) 02/13/18 04:20 MPV 6.7 fl (7.2-11.7) L 02/13/18 04:20 Neut % (Auto) 69.5 % (50.0-75.0) 02/13/18 04:20 Lymph % (Auto) 13.3 % (20.0-40.0) L 02/13/18 04:20 [place] % (Auto) 12.3 % (0.0-10.0) H 02/13/18 04:20 Eos % (Auto) 3.9 % (0.0-4.0) 02/13/18 04:20 Baso % (Auto) 1.0 % (0.0-2.0) 02/13/18 04:20 Neut # (Auto) 6.9 K/uL (1.8-7.0) 02/13/18 04:20 Lymph # (Auto) 1.3 K/uL (1.0-4.3) 02/13/18 04:20 [place] # (Auto) 1.2 K/uL (0.0-0.8) H 02/13/18 04:20 Eos # (Auto) 0.4 K/uL (0.0-0.7) 02/13/18 04:20 Baso # (Auto) 0.1 K/uL (0.0-0.2) 02/13/18 04:20 Neutrophils % (Manual) 87 % (42-75) H 02/08/18 00:40 Band Neutrophils % 1 % (0-2) 02/08/18 00:40 Lymphocytes % (Manual) 5 % (20-50) L 02/08/18 00:40 Monocytes % (Manual) 7 % (0-10) 02/08/18 00:40 Platelet Estimate Normal (NORMAL) 02/08/18 00:40 Large Platelets Present 02/08/18 00:40 Anisocytosis (manual) Slight 02/08/18 00:40 PT 19.2 Seconds (9.8-13.1) H 02/08/18 00:40 INR 1.7 02/08/18 00:40 APTT 36.5 Seconds (25.6-37.1) 02/08/18 00:40 pO2 32 mm/Hg (30-55) 02/08/18 03:29 VBG pH 7.30 (7.32-7.43) L 02/08/18 03:29 VBG pCO2 56 mmHg (40-60) 02/08/18 03:29 VBG HCO3 23.8 mmol/L 02/08/18 03:29 VBG Total CO2 29.3 mmol/L (22-28) H 02/08/18 03:29 VBG O2 Sat (Calc) 55.3 % (40-65) 02/08/18 03:29 VBG Base Excess 0.1 mmol/L (0.0-2.0) 02/08/18 03:29 VBG Potassium 4.4 mmol/L (3.6-5.2) 02/08/18 03:29 Sodium 134.0 mmol/L (132-148) 02/08/18 03:29 Chloride 103.0 mmol/L (98-107) 02/08/18 03:29 Glucose 50 mg/dL (65-105) L 02/08/18 03:29 Lactate 0.7 mmol/L (0.7-2.1) 02/08/18 03:29 FiO2 21.0 % 02/08/18 03:29 Sodium 140 mmol/l (132-148) 02/14/18 05:00 Potassium 3.2 MMOL/L (3.6-5.0) L 02/14/18 05:00 Chloride 107 mmol/L (98-107) 02/14/18 05:00 Carbon Dioxide 30 mmol/L (22-30) 02/14/18 05:00 Anion Gap 6 (10-20) L 02/14/18 05:00 BUN < 2 mg/dl (7-17) L 02/14/18 05:00 Creatinine 0.3 mg/dl (0.7-1.2) L 02/14/18 05:00 Est GFR ( Amer) > 60 02/14/18 05:00 Est GFR (Non-Af Amer) > 60 02/14/18 05:00 POC Glucose (mg/dL) 77 mg/dL (65-110) 02/13/18 11:50 Random Glucose 67 mg/dL (65-105) 02/14/18 05:00 Hemoglobin A1c 4.8 % (4.2-6.5) 02/13/18 04:20 Lactic Acid 0.6 MMOL/L (0.7-2.1) L 02/08/18 09:01 Calcium 8.5 mg/dL (8.4-10.2) 02/14/18 05:00 Phosphorus 4.9 mg/dl (2.5-4.5) H 02/12/18 06:45 Magnesium 1.9 MG/DL (1.6-2.3) 02/14/18 05:00 Iron 36 ug/dL (37-170) L 02/10/18 12:10 TIBC 143 ug/dL (250-450) L 02/10/18 12:10 % Saturation 25 % (20-55) 02/10/18 12:10 Ferritin 477.0 ng/Ml (11.1-264.0) H 02/10/18 12:10 Total Bilirubin < 0.1 mg/dl (0.2-1.3) L 02/13/18 04:20 AST 71 U/L (14-36) H 02/13/18 04:20 ALT 50 U/L (9-52) 02/13/18 04:20 Alkaline Phosphatase 272 U/L (38-126) H 02/13/18 04:20 Total Protein 4.3 G/DL (6.3-8.2) L 02/13/18 04:20 Albumin 1.7 g/dL (3.5-5.0) L 02/13/18 04:20 Globulin 2.6 gm/dL (2.2-3.9) 02/13/18 04:20 Albumin/Globulin Ratio 0.6 (1.0-2.1) L 02/13/18 04:20 Folate 8.3 ng/mL 02/10/18 12:10 Procalcitonin 0.72 NG/ML (0.19-0.49) H 02/10/18 04:25 Free T4 1.52 ng/dL (0.78-2.19) 02/11/18 09:32 Thyroxine (T4) 6.54 ug/dl (5.5-11.0) 02/13/18 04:20 Free T3 pg/mL 6.98 pg/mL (2.77-5.27) H 02/11/18 09:32 Total T3 1.30 nmol/L (1.49-2.60) L 02/11/18 09:32 TSH 3rd Generation < 0.02 mIU/ML (0.46-4.68) L 02/13/18 04:20 Venous Blood Potassium 4.4 mmol/L (3.6-5.2) 02/08/18 03:29 Urine Color Yellow (YELLOW) 02/08/18 03:55 Urine Clarity Cloudy (Clear) 02/08/18 03:55 Urine pH 6.0 (5.0-8.0) 02/08/18 03:55 Ur Specific [place] 1.015 (1.003-1.030) 02/08/18 03:55 Urine Protein 30 mg/dL (NEGATIVE) 02/08/18 03:55 Urine Glucose (UA) Neg mg/dL (Normal) 02/08/18 03:55 Urine Ketones 20 mg/dL (NEGATIVE) 02/08/18 03:55 Urine Blood Negative (NEGATIVE) 02/08/18 03:55 Urine Nitrate Negative (NEGATIVE) 02/08/18 03:55 Urine Bilirubin Negative (NEGATIVE) 02/08/18 03:55 Urine Urobilinogen 4.0 mg/dL (0.2-1.0) H 02/08/18 03:55 Ur Leukocyte Esterase Neg Ben/uL (Negative) 02/08/18 03:55 Urine RBC (Auto) 5 /hpf (0-3) H 02/08/18 03:55 Urine Microscopic WBC 9 /hpf (0-5) H 02/08/18 03:55 Ur Squamous Epith Cells 3 /hpf (0-5) 02/08/18 03:55 Urine Bacteria Rare (<OCC) 02/08/18 03:55 Ur Random Sodium 96 meq/L 02/13/18 14:10 Ur Random Potassium 27.0 mmol/L 02/13/18 15:00 Ur Random Phosphorus 6.7 mg/dL 02/13/18 14:10 Urine Magnesium 4.0 mg/dL 02/13/18 14:10 Vancomycin Trough 24.4 ug/mL (5.0-10.0) H 02/11/18 20:04 C. difficile Ag & Toxin Negative (NEGATIVE) 02/10/18 14:35 Influenza Typ A,B (EIA) Negative for flu a/b (NEGATIVE) 02/08/18 02:25 Ur L.pneumophila Ag Negative (NEGATIVE) 02/09/18 10:44 Mycoplasma pneumon IgM 59 U/mL (<770) 02/09/18 09:31 Ur Strep pneumoniae Ag Not detected (Not Detected) 02/09/18 10:44 - Hospital Course Hospital Course: 67 yo female patient with extensive pmhx including chronic respiratory failure, CHF, COPD, breast cancer, anemia of chronic disease, and multiple others presented to the ED and was seen and evaluated for possible pneumonia and sepsis. She was found to be hypotensive, tachycardic, with leukocytosis and shortness of breath. She was admitted to the telemetry floor and placed on tele monitor. Blood cultures were taken and was found to have staph aureus and corynebacterium. Sputum culture read gram negative. Chest CT showed and confirmed dense left lower lobe pneumonia with likely intermixed atelectasis, and showed minimal right lower lobe pneumonia. Pulmonary consult was made and her primary doctor, Dr. Benz, participated in her treatment. ID was also consulted. She was started on vancomycin and zosyn and is on her 6th day of each, amikacin, and clarithromycin which were discontinued per ID. Throughout her stay she had persistent hypokalemia which was treated with replacement and restarted on methamozole for hyperthyroidism which could be contributing to the low potassium levels. Dr. Norton was consulted from nephrology and planned for spot urine check for potassium which was negative. Stated to keep serum mag levels in upper limit with oral mag a couple of days. She had complaints of diarrhea during her stay and was r/o for c. diff. Her blood pressure was low during her stay but she was asymptomatic, it was monitored and her most recent echo showed 60-65% EF. Per discharge planning, Dr. Benz plans for continued an tibiotic therapy for one week, placement of a PICC line, and discharge to [facility]. States need for potential appetite stimulant but includes that marinol had not worked for her in the past. Potassium supplements as needed and continue PO magnessium. Resume physical therapy and mobilize as capable. States to continue aerosol therapy and mucolytic plus CPT. Continue methimazole 5mg PO in at night. Acetazolamide remain at 250 mg once daily. Plans for f/u chest x-ray in one week. - Date & Time of H&P Date of H&P: 10/09/18 Time of H&P: 12:37 Discharge Exam - Head Exam Head Exam: NORMAL INSPECTION - Respiratory Exam Respiratory Exam: Decreased Breath Sounds, Rales. absent: Wheezes, Respiratory Distress - Cardiovascular Exam Cardiovascular Exam: REGULAR RHYTHM, +S1, +S2 - GI/Abdominal Exam GI & Abdominal Exam: Normal Bowel Sounds, Soft. absent: Tenderness - Neurological Exam Neurological exam: Alert, Oriented x3 - Psychiatric Exam Psychiatric exam: Normal Affect, Normal Mood - Skin Skin Exam: Dry, Intact, Normal Color, Warm Discharge Plan - Discharge Medications Prescriptions: Piperacill/Tazo 4.5gm in NS [Zosyn 4.5 gm in NS 100ml] 4.5 gm IVPB Q8 #21 bag Potassium Chloride 40 meq PO BID #120 ml Vancomycin/0.9 % Sod Chloride [Vancomycin 1 G/100Ml-0.9% NaCl] 1 gm IV DAILY #7 plast..bag - Follow Up Plan Condition: FAIR Disposition: TRANSF TO SNF Referrals: Bala Benz MD [Staff Provider] -
[2018-02-14] MEDS ORDERED: Lidocaine 1% 5ml Abboject ONE (12:31)
[2018-02-14 12:41] VITALS: O2SAT 100
--- NOTE | 2018-02-14 13:26 | PCM.SURG1 ---
Surgeon's Initial Post Op Note - Surgeon's Notes Surgeon: [employer] Firer/Fireman: None Type of Anesthesia: Local Pre-Operative Diagnosis: IV access for correction medication Operative Findings: Patent left brachial vein Post-Operative Diagnosis: IV access for correction medication Operation Performed: left brachial vein 42cm Sl 4F PICC placed. Specimen/Specimens Removed: None Estimated Blood Loss: EBL {In ML}: 1 Date of Surgery/Procedure: 02/14/18 Time of Surgery/Procedure: 13:20
[2018-02-14] MEDS ORDERED: Potassium Chloride 20 mEq/15 ml LIQ UD PO ONE (14:38)
--- NOTE | 2018-02-14 15:14 | VASCULAR ---
Procedure: Ultrasound and fluoroscopically placed left upper extremity PICC. Clinical indication: Long-term IV antibiotics. Technique: The relative risks and indications of the procedure were explained to the patient and written informed consent obtained. The patient was placed supine on the angiographic table and the left arm prepped and draped in the usual sterile fashion. A tourniquet was applied to the left axilla. 1% lidocaine was used to anesthetize the skin and soft tissues at the puncture site above the elbow. The left basilic vein was punctured under direct ultrasound guidance with a micropuncture set. A 0.018 guidewire was advanced centrally and used to measure the length to the SVC/RA junction. A 4 Italian single-lumen PICC size 42 cm long was advanced to the SVC/RA junction under fluoroscopic guidance. The catheter was flushed and secured. The patient tolerated the procedure well. Postprocedure chest radiograph was obtained to ensure location of the catheter tip at the SVC right atrial junction. Impression: Ultrasound and fluoroscopically placed left upper extremity PICC.
[2018-02-14 16:21] VITALS: BP 118/64; PULSE 111; RESP 18; TEMP 98.1
[2018-02-14] MEDS: methIMAzole 5 MG TAB PO SCH ×2 (16:32→17:43)
[2018-02-14] MEDS ORDERED: Piperacillin/Tazobact 4.5 GM in Sodium Chloride 0.9% 100 ML IVPB SCH (17:00)
--- NOTE | 2018-02-15 07:59 | PN ---
DATE: 02/14/2018 ENDO FOLLOWUP NOTE LOCATION: In room 411. SUBJECTIVE: This is a 67-year-old female with recent acute exacerbation of COPD with supervening congestive heart failure and is now being followed closely for metabolic management. LABORATORY DATA: Her repeat chemistries today showed a BUN of 2, sodium 140, potassium 3.2, chloride 107, CO2 of 30, glucose 67, and creatinine 0.3. Her repeat thyroid studies showed T4 of 6.54 with a TSH of less than 0.02 as noted. ASSESSMENT AND PLAN: So at this time, we will continue the medical therapy with the combination of Tapazole given as 10 mg in the morning and 5 mg in the evening as ordered. We will take a few weeks for dose equilibration to the aforementioned dosing as given. We will obtain serial thyroid studies and titrate her dose regimen accordingly. We are also awaiting the reports of the thyroid antibodies, which will confirm and/or indicate the presence of thyroid autoimmunity. We will follow and advise accordingly. Polly Vu MD
--- NOTE | 2018-02-15 19:12 | PQF ---
PROVIDER RESPONSE TEXT: Patient had diagnosis of sepsis( on admission ) this admission most likely secondary multiple organis ms ;--Staph aureus and corynobacter species in Blood and Klebsiella oxytaca in sputum Most likely source of Bacteremia is multilobar Pneumonia seen on CT chest REVIEWER QUERY TEXT: Rule Out Sepsis Clarification Sepsis is documented in the Medical Record. -- Please document confirmed, suspected or probable causative organism unable to code from blood cult ures -- Please document confirmed, suspected or probable localized infection -- Other, please specify The patient's Clinical Indicators include: Patient with a fever of 102 on 02/06/18 and cough x 1 week. Resides in a detention. CT Chest + pneumonia. Sputum CS: Klebsiella Oxytoca. Blood CS: Staphlococcus Aureus, Corynebacterium Species Rx: IVAB Query created by: Myriam Burger on 02/13/2018 2:14 PM Electronically signed by: 02/15/2018 7:09 PM
== END 2018-02-14 18:05 | DRG 871 ==
LOC: H.ER 23:29 → H.ERHOLD 02-08 02:12 → H.TEL 02-08 04:30
PROVIDERS: ADMIT Hospitalist; ATTEND Hospitalist
PROC: 3E02340 Introduction of Influenza Vaccine into Muscle, Percutaneous Approach (ICD-10-PCS; 2018-02-08)
PROC: 0HBRXZZ Excision of Toe Nail, External Approach (ICD-10-PCS; principal; 2018-02-10)
PROC: 02HV33Z Insertion of Infusion Device into Superior Vena Cava, Percutaneous Approach (ICD-10-PCS; 2018-02-14)
PROC: B518ZZA Fluoroscopy of Superior Vena Cava, Guidance (ICD-10-PCS; 2018-02-14)
PROC: B548ZZA Ultrasonography of Superior Vena Cava, Guidance (ICD-10-PCS; 2018-02-14)
DX: A41.9 Sepsis, unspecified organism (principal); J15.8 Pneumonia due to other specified bacteria; R65.21 Severe sepsis with septic shock; I50.42 Chronic combined systolic (congestive) and diastolic (congestive) heart failure; J96.12 Chronic respiratory failure with hypercapnia; J98.11 Atelectasis; J44.0 Chronic obstructive pulmonary disease with (acute) lower respiratory infection; I47.1 Supraventricular tachycardia; J44.1 Chronic obstructive pulmonary disease with (acute) exacerbation; K12.2 Cellulitis and abscess of mouth; E87.6 Hypokalemia; Z80.41 Family history of malignant neoplasm of ovary; D63.8 Anemia in other chronic diseases classified elsewhere; E03.9 Hypothyroidism, unspecified; E05.90 Thyrotoxicosis, unspecified without thyrotoxic crisis or storm; E16.2 Hypoglycemia, unspecified; E78.5 Hyperlipidemia, unspecified; F41.1 Generalized anxiety disorder; I11.0 Hypertensive heart disease with heart failure; I89.0 Lymphedema, not elsewhere classified; L60.0 Ingrowing nail; Z23 Encounter for immunization; M81.0 Age-related osteoporosis without current pathological fracture; Z66 Do not resuscitate; Z79.52 Long term (current) use of systemic steroids; Z80.1 Family history of malignant neoplasm of trachea, bronchus and lung; Z85.3 Personal history of malignant neoplasm of breast; Z87.01 Personal history of pneumonia (recurrent); Z87.891 Personal history of nicotine dependence; Z90.13 Acquired absence of bilateral breasts and nipples; Z90.49 Acquired absence of other specified parts of digestive tract; Z92.21 Personal history of antineoplastic chemotherapy; Z96.619 Presence of unspecified artificial shoulder joint; F32.9 Major depressive disorder, single episode, unspecified; F41.9 Anxiety disorder, unspecified; G62.9 Polyneuropathy, unspecified; M19.90 Unspecified osteoarthritis, unspecified site; M51.9 Unspecified thoracic, thoracolumbar and lumbosacral intervertebral disc disorder; R74.8 Abnormal levels of other serum enzymes

== ENCOUNTER 2018-03-04 14:17 | Observation (INO) | payer MEDICARE, BC ==
[2018-03-04 14:18] VITALS: BMI 26.5
[2018-03-04] MEDS ORDERED: Albuterol-Ipratrop 3 mg / 0.5 (3 ml) UD IH STA ×2 (14:45→16:10)
--- NOTE | 2018-03-04 14:49 | ED PDOC ---
HPI: SOB/CHF/COPD Time Seen by Provider: 03/04/18 14:41 Chief Complaint (Nursing): Shortness Of Breath History Per: Patient Onset/Duration Of Symptoms: Days (2) Current Symptoms Are (Timing): Still Present Severity: Moderate Associated Symptoms: Fever, Chest Pain. denies: Productive Cough Additional Complaint(s): SOB assoc with nonproductive cough x 2 days. Denies fever. Assoc with chest pain when coughing and on inspiration. Denies leg swelling. Past Medical History Vital Signs: Last Vital Signs Temp 99.4 F 03/04/18 14:21 Pulse 101 H 03/04/18 14:21 Resp 18 03/04/18 14:21 BP 91/54 L 03/04/18 14:21 Pulse Ox 98 03/04/18 14:21 - Medical History PMH: Anemia, Anxiety, Arthritis, Asthma, Bronchitis, Cardia Arrhythmia, CHF (Diastolic), COPD, Fractures, Gall Bladder Disease, HTN, Hyperthyroidism, Hypothyroidism, Malignancy (breast CA), Osteoporosis, Pneumonia Denies: HIV, Chronic Kidney Disease - Family History Family History: States: Unknown Family Hx - Home Medications Home Medications: Ambulatory Orders Medication Instructions Recorded Anastrozole [Arimidex 1 mg Tab] 1 mg PO DAILY #0 12/12/16 Gabapentin [Neurontin] 600 mg PO Q8 11/10/17 Acetaminophen [Tylenol 325mg tab] 650 mg PO Q6 PRN tab 11/23/17 Aspirin [Aspirin Chewable] 81 mg PO DAILY chew 12/28/17 Atorvastatin [Lipitor] 40 mg PO HS tab 12/28/17 Furosemide [Lasix] 40 mg PO DAILY tab 12/28/17 Cholestyramine (with Sugar) 4 gm PO DAILY 02/08/18 [Questran Packet] Saccharomyces [place]oul[place] [Florastor] 250 mg PO DAILY 02/08/18 Acetylcysteine 20% 2 ml INH RBID vial 02/14/18 Albuterol 0.083% [Albuterol 0.083% 2.5 mg INH RQ4 PRN neb 02/14/18 Inhal [place] (2.5 mg/3 ml) UD] Ipratropium 0.02% [Atrovent] 0.5 mg IH RQID neb 02/14/18 Magnesium Oxide [Mag-Ox] 400 mg PO DAILY tab 02/14/18 Piperacill/Tazo 4.5gm in NS [Zosyn 4.5 gm IVPB Q8 #21 bag 02/14/18 4.5 gm in NS 100ml] Potassium Chloride 40 meq PO BID #120 ml 02/14/18 Vancomycin/0.9 % Sod Chloride 1 gm IV DAILY #7 plast..bag 02/14/18 [Vancomycin 1 G/100Ml-0.9% NaCl] acetaZOLAMIDE [Diamox 250 mg Tab] 250 mg PO DAILY tab 02/14/18 guaiFENesin [Mucinex [place]] 600 mg PO Q12 tab 02/14/18 methIMAzole [Tapazole] 5 mg PO QPM tab 02/14/18 - Allergies Allergies/Adverse Reactions: Allergies Allergy/AdvReac Type Severity Reaction Status Date / Time paper tape Allergy RASH Uncoded 03/04/18 14:20 Review of Systems ROS Statement: Except As Marked, All Systems Reviewed And Found Negative Constitutional: Negative for: Fever Cardiovascular: Positive for: Chest Pain Respiratory: Positive for: Cough, Shortness of Breath, Pleuritic Pain Physical Exam - Reviewed Nursing Documentation Reviewed: Yes Vital Signs Reviewed: Yes - Physical Exam Appears: Positive for: Non-toxic, No Acute Distress Head Exam: Positive for: ATRAUMATIC, NORMAL INSPECTION, NORMOCEPHALIC Skin: Positive for: Warm, Rash (Erythemetous rash right flank present x 2 weeks. No vesicles seen) Eye Exam: Positive for: EOMI, Normal appearance, PERRL ENT: Positive for: Normal ENT Inspection Neck: Positive for: Normal, Painless ROM Cardiovascular/Chest: Positive for: Regular Rate, Rhythm, Tachycardia Respiratory: Positive for: Decreased Breath Sounds, Rhonchi, Other (Bilat mastectomy). Negative for: Wheezing, Respiratory Distress Gastrointestinal/Abdominal: Positive for: Normal Exam, Soft Back: Positive for: Normal Inspection Extremity: Positive for: Other (Lymphedema right upper ext. No lower ext swelling or tenderness) Neurologic/Psych: Positive for: Alert, Oriented - ECG O2 Sat by Pulse Oximetry: 98 Disposition - Disposition
[2018-03-04] MEDS ORDERED: Piperacillin/Tazobact 3.375 GM in Sodium Chloride 0.9% 100 ML IVPB STA (15:00)
[2018-03-04 15:06] LABS: VENOUS BLOOD GAS BASE EXCESS 0.9 mmol/L (0.0-2.0); VENOUS BLOOD GAS PCO2 54 mmHg (40-60); VENOUS BLOOD GAS PO2 42 mm/Hg (30-55); VENOUS BLOOD PH 7.32 (7.32-7.43)
[2018-03-04 15:09] LABS: BASO % 0.3 % (0.0-2.0); EOS % 0.1 % (0.0-4.0); HEMOGLOBIN 10.2 g/dL (12.0-16.0); LYMPH # 1.9 K/uL (1.0-4.3); MEAN CELL VOLUME 84.6 fl (81.0-99.0); MEAN CORPUSCULAR HEMOGLOBIN 25.3 pg (27.0-31.0); MEAN CORPUSCULAR HGB CONC 29.9 g/dL (33.0-37.0); MEAN PLATELET VOLUME 6.9 fl (7.2-11.7); MONO % 7.3 % (0.0-10.0); NEUT # 10.4 K/uL (1.8-7.0); NEUT % 78.3 % (50.0-75.0); NRBC % 0.1 % (0.0-0.0); RBC 4.03 Mil/uL (3.80-5.20); RED CELL DISTRIBUTION WIDTH 22.3 % (11.5-14.5); WHITE BLOOD COUNT 13.3 K/uL (4.8-10.8)
--- NOTE | 2018-03-04 15:27 | RAD ---
Date of service: 03/04/2018 HISTORY: cough COMPARISON: Chest radiograph dated 02/14/2018. FINDINGS: LUNGS: Hyperinflated lungs. No active pulmonary disease. PLEURA: No significant pleural effusion identified, no pneumothorax apparent. CARDIOVASCULAR: Aortic atherosclerotic calcifications. Cardiomediastinal silhouette unchanged. OSSEOUS STRUCTURES: Unchanged. VISUALIZED UPPER ABDOMEN: Normal. OTHER FINDINGS: Bilateral axillary surgical clips redemonstrated. IMPRESSION: No active disease.
[2018-03-04] MEDS ORDERED: Piperacillin/Tazobact 3.375 gm Inj IVPB ONE (15:31)
[2018-03-04 15:40] LABS: TROPONIN I 0.018 ng/mL (0.00-0.120)
[2018-03-04] MEDS ORDERED: Vancomycin 1 g Inj ONE (15:58)
[2018-03-04 15:59] LABS: ALB/GLOB RATIO 0.6 (1.0-2.1); ALBUMIN 2.1 g/dL (3.5-5.0); CALCIUM 7.4 mg/dL (8.4-10.2)
[2018-03-04] MEDS ORDERED: Albuterol-Ipratrop 3 mg / 0.5 (3 ml) UD INH STA (16:10)
[2018-03-04] MEDS ORDERED: Albuterol-Ipratrop 3 mg / 0.5 (3 ml) UD ONE ×2 (16:12→16:13)
--- NOTE | 2018-03-04 16:27 | ED PDOC ---
- Laboratory Results Result Diagrams: 03/04/18 15:00 03/04/18 15:00 Interpretation Of Abn Labs: 13.3 wbc; elevated probnp - ECG ECG: Positive for: Interpreted By Me, Viewed By Me ECG Rhythm: Positive for: Sinus Rhythm. Negative for: Atrial Fibrillation O2 Sat by Pulse Oximetry: 98 Pulse Ox Interpretation: Normal - Radiology X-Ray: Read By Radiologist X-Ray Interpretation: No Acute Disease - Progress ED Course And Treament: 1500: Took over care from Dr. Singleton. Gume on labs and imaging. Here with dyspnea, cough. He gave antibiotics. 1715: Stable. Feels much better. Will need admit. Likely chf and copd exacerbation. No infectious etiology so not sepsis. Spoke with Dr. Camilo who will admit for Dr. Benz. Will give asa and hold ntg and lasix and pt. bp is borderline. Disposition - Clinical Impression Clinical Impression: Acute exacerbation of CHF (congestive heart failure), COPD with exacerbation - POA Present On Arrival: None - Disposition Disposition: Admitted as In-Patient Disposition Time: 17:00 Condition: STABLE
[2018-03-04] MEDS ORDERED: Sodium Chloride 0.9% 500 ML IV STA ×2 (16:28→16:58)
[2018-03-04] MEDS ORDERED: Dextrose 50% SYRINGE Inj (50 ml) IVP STA (17:52)
--- NOTE | 2018-03-04 18:15 | CP.PCM.HP ---
<Lilo Elliott - Last Filed: 03/04/18 20:39> History of Present Illness - History of Present Illness History of Present Illness: CC: SOB HPI: 67 YO Female with PMHx of COPD, sys/leigh CHF, HTN, hyperthyroidism, hx breast CA and multiple other co-morbidities sent from [facility] for shortness of breath. Pt states that she was at her normal state of health until last night when she started experiencing shortness of breath. Pt states that she has been coughing more then her usual for the past few days, mostly non-productive, no fevers or chills and dyspnea started last night. Patient denies chest pain, palpitations, n/v/d/c, abdominal pain, dysuria, fever and chills. PMD: Dr. Benz PMHx: Chronic Respiratory Failure , CHF (systolic+diastolic), COPD, bilateral metastatic breast CA to shoulder s/p chemo-XRT 8 years ago (s/p humerus resection) with chronic lymphedema RUE, HTN, hyperthyroidism, anemia of chronic disease, SVT, osteoporosis, R cephalic vein thrombosis, peripheral neuropathy, anxiety SurgHx: bilateral mastectomies R 1998/2008, total shoulder replacement (2003) + removal (2013), cervical and lumbar fusions 2007, cholecystectomy, tubal ligation, groin cyst removal; trach placed 07/2016, removed 11/04/16 Family Hx: Family history of cancer including ovarian, colon, breast, pancreatic and lung cancer Social Hx: lives in [facility] for [facility], quit smoking 2 years ago. Used smoke PPD X 50 yrs, no current EtOH Allergies: NKDA Code: DNR Present on Admission - Present on Admission Any Indicators Present on Admission: No Review of Systems - Constitutional Constitutional: absent: Chills, Fever - Cardiovascular Cardiovascular: Dyspnea. absent: Chest Pain, Palpitations - Respiratory Respiratory: Cough, Dyspnea - Gastrointestinal Gastrointestinal: absent: Abdominal Pain, Nausea, Vomiting - Genitourinary Genitourinary: absent: Dysuria Past Patient History - Infectious Disease Hx of Infectious Diseases: None - Tetanus Immunizations Tetanus Immunization: Unknown - Past Medical History & Family History Past Medical History?: Yes - Past Social History Smoking Status: Former Smoker Alcohol: None Drugs: Denies Home Situation {Lives}: Snf - CARDIAC Hx Cardia Arrhythmia: Yes Hx Congestive Heart Failure: Yes (Diastolic) Hx Hypertension: Yes - PULMONARY Hx Asthma: Yes Hx Bronchitis: Yes Hx Chronic Obstructive Pulmonary Disease (COPD): Yes Hx Pneumonia: Yes - NEUROLOGICAL Other/Comment: Peripheral neuropathy - HEENT Other/Comment: Buccal abscess/osteo of mandible - RENAL Hx Chronic Kidney Disease: No - ENDOCRINE/METABOLIC Hx Hyperthyroidism: Yes Hx Hypothyroidism: Yes - HEMATOLOGICAL/ONCOLOGICAL Hx Anemia: Yes Hx Human Immunodeficiency Virus (HIV): No - INTEGUMENTARY Hx Cellulitis: Yes (recurring RUE) Other/Comment: Chronic lymphedema right upper extremity - MUSCULOSKELETAL/RHEUMATOLOGICAL Hx Arthritis: Yes Hx Fractures: Yes Hx Osteoporosis: Yes - GASTROINTESTINAL Hx Gall Bladder Disease: Yes - GENITOURINARY/GYNECOLOGICAL Hx Genitourinary Disorders: No - PSYCHIATRIC Hx Anxiety: Yes - SURGICAL HISTORY Hx Mastectomy: Yes (right in 1998; left in 2008) Hx Orthopedic Surgery: Yes (2003 rigtht shoulder prosthesis, removal of hardware 2013) Hx Tubal Ligation: Yes Other/Comment: shoulder and humerous replacement with joint space infection and eventual removal of hardware in right shoulder and chronic lymphedema of RUE, groin cyst removal, cervical spinal fusion 2007, lumbar spinal fusion 2007. Tracheostomy. - ANESTHESIA Hx Anesthesia: Yes Hx Anesthesia Reactions: No Hx Malignant Hyperthermia: No Meds Allergies/Adverse Reactions: Allergies Allergy/AdvReac Type Severity Reaction Status Date / Time paper tape Allergy RASH Uncoded 03/04/18 14:20 Physical Exam - Constitutional Appears: Other (breathing heavily, on NC 4L) - Head Exam Head Exam: NORMAL INSPECTION - Eye Exam Eye Exam: EOMI, Normal appearance - ENT Exam ENT Exam: Mucous Membranes Dry - Respiratory Exam Respiratory Exam: Prolonged Expiratory Phase, Wheezes (b/l, worse on expiration ), NORMAL BREATHING PATTERN. absent: Rales - Cardiovascular Exam Cardiovascular Exam: REGULAR RHYTHM, +S1, +S2. absent: Systolic Murmur Additional comments: b/l radical breast surgery - GI/Abdominal Exam GI & Abdominal Exam: Distended (abdominal edema noted ), Normal Bowel Sounds, Soft. absent: Guarding, Tenderness - Extremities Exam Additional comments: stasis changes noted, small abrasions, old noted Mild pedal edema, non-pitting RUE lymphoedema with skin changes-blue hue - Neurological Exam Neurological exam: Alert, CN II-XII Intact, Oriented x3 - Skin Skin Exam: Pallor Results - Vital Signs Recent Vital Signs: Last Vital Signs Temp 99.4 F 03/04/18 14:21 Pulse 110 H 03/04/18 17:29 Resp 24 03/04/18 17:29 BP 104/77 03/04/18 17:29 Pulse Ox 96 03/04/18 17:29 - Labs Result Diagrams: 03/04/18 15:00 03/04/18 15:00 Labs: Laboratory Results - last 24 hr 03/04/18 03/04/18 03/04/18 14:44 15:00 15:00 WBC 13.3 H RBC 4.03 Hgb 10.2 L Hct 34.1 MCV 84.6 D MCH 25.3 L MCHC 29.9 L RDW 22.3 H Plt Count 434 H MPV 6.9 L Neut % (Auto) 78.3 H Lymph % (Auto) 14.0 L Estill % (Auto) 7.3 Eos % (Auto) 0.1 Baso % (Auto) 0.3 Neut # (Auto) 10.4 H Lymph # (Auto) 1.9 Estill # (Auto) 1.0 H Eos # (Auto) 0.0 Baso # (Auto) 0.0 pO2 42 VBG pH 7.32 VBG pCO2 54 VBG HCO3 25.1 VBG Total CO2 29.5 H VBG O2 Sat (Calc) 76.7 H VBG Base Excess 0.9 VBG Potassium 3.5 L Sodium 126.0 L 131 L Chloride 97.0 L 99 Glucose 46 L Lactate 0.9 FiO2 21.0 Potassium 4.0 Carbon Dioxide 23 Anion Gap 13 BUN 6 L Creatinine 1.2 Est GFR ( Amer) 54 Est GFR (Non-Af Amer) 45 Random Glucose 42 L Calcium 7.4 L Total Bilirubin 0.3 AST 88 H D ALT 33 Alkaline Phosphatase 238 H Troponin I 0.0180 NT-Pro-B Natriuret Pep 4720 H Total Protein 5.7 L Albumin 2.1 L D Globulin 3.6 Albumin/Globulin Ratio 0.6 L Venous Blood Potassium 3.5 L Assessment & Plan - Assessment and Plan (Free Text) Assessment: Assessment/Plan: 67 YO Female with PMHx of COPD, sys/leigh CHF, HTN, hyperthyroidism, hx breast CA and multiple other co-morbidities is admitted for CHF, COPD exacerbation. COPD exacerbation -acute on chronic -CXR noted for COPD changes, no infection noted -cont O2 via NC -start Xopenex, albuterol, atrovent and methylpredisone 40 Q6 -s/p IV vanc and zosyn -follow up ABG -will hold off abx for now, prolong QTc, follow up pro-calcitonin -Pulmonary consult; follow up recs CHF exacerbation -acute on chronic -Echo 11/2017: EF 60-65% -elevated pro-BNP -will hold fluids, hold diuretics due to low BP Leukocytosis -likely 2/2 to COPD, steroid use, r/o infections -afebrile -CXR neg for infiltrate -follow up bcx, ucx, UA and pro-calcitonin Hypoglycemia -glucose low at 42 -s/p D50 Hypotensive -chronic -cont with home meds Normocytic anemia -chronic, stable Hyperthyroidism -chronic, controlled -c/w home meds Brest CA -chronic -c/w home meds DVT Prophlx -Lovenox Sc <Georgia Camilo - Last Filed: 03/04/18 21:21> Results - Vital Signs Recent Vital Signs: Last Vital Signs Temp 98.6 F 03/04/18 20:15 Pulse 108 H 03/04/18 20:15 Resp 16 03/04/18 20:15 BP 118/68 03/04/18 20:15 Pulse Ox 95 03/04/18 20:15 - Labs Result Diagrams: 03/04/18 15:00 03/04/18 15:00 Labs: Laboratory Results - last 24 hr 03/04/18 03/04/18 03/04/18 14:44 15:00 15:00 WBC 13.3 H RBC 4.03 Hgb 10.2 L Hct 34.1 MCV 84.6 D MCH 25.3 L MCHC 29.9 L RDW 22.3 H Plt Count 434 H MPV 6.9 L Neut % (Auto) 78.3 H Lymph % (Auto) 14.0 L Estill % (Auto) 7.3 Eos % (Auto) 0.1 Baso % (Auto) 0.3 Neut # (Auto) 10.4 H Lymph # (Auto) 1.9 Estill # (Auto) 1.0 H Eos # (Auto) 0.0 Baso # (Auto) 0.0 D-Dimer, Quantitative pO2 42 VBG pH 7.32 VBG pCO2 54 VBG HCO3 25.1 VBG Total CO2 29.5 H VBG O2 Sat (Calc) 76.7 H VBG Base Excess 0.9 VBG Potassium 3.5 L Sodium 126.0 L 131 L Chloride 97.0 L 99 Glucose 46 L Lactate 0.9 FiO2 21.0 Potassium 4.0 Carbon Dioxide 23 Anion Gap 13 BUN 6 L Creatinine 1.2 Est GFR ( Amer) 54 Est GFR (Non-Af Amer) 45 Random Glucose 42 L Calcium 7.4 L Total Bilirubin 0.3 AST 88 H D ALT 33 Alkaline Phosphatase 238 H Troponin I 0.0180 NT-Pro-B Natriuret Pep 4720 H Total Protein 5.7 L Albumin 2.1 L D Globulin 3.6 Albumin/Globulin Ratio 0.6 L TSH 3rd Generation Venous Blood Potassium 3.5 L 03/04/18 03/04/18 18:03 18:03 WBC RBC Hgb Hct MCV MCH MCHC RDW Plt Count MPV Neut % (Auto) Lymph % (Auto) Estill % (Auto) Eos % (Auto) Baso % (Auto) Neut # (Auto) Lymph # (Auto) Estill # (Auto) Eos # (Auto) Baso # (Auto) D-Dimer, Quantitative 388 H pO2 VBG pH VBG pCO2 VBG HCO3 VBG Total CO2 VBG O2 Sat (Calc) VBG Base Excess VBG Potassium Sodium Chloride Glucose Lactate FiO2 Potassium Carbon Dioxide Anion Gap BUN Creatinine Est GFR ( Amer) Est GFR (Non-Af Amer) Random Glucose Calcium Total Bilirubin AST ALT Alkaline Phosphatase Troponin I NT-Pro-B Natriuret Pep Total Protein Albumin Globulin Albumin/Globulin Ratio TSH 3rd Generation 1.49 Venous Blood Potassium Attending/Attestation - Attestation I have personally seen and examined this patient.: Yes I have fully participated in the care of the patient.: Yes I have reviewed all pertinent clinical information: Yes Notes (Text): COPD exacerbation, acute - Oxygen 4 liters per NC - ABG - start Solumedrol 40 mg q6 - Xopenex and Atrovent RTC - Received a dose of IV Zosyn and Vanco in the ED , will hold off on abx for now, pt is afebrile, and just completed IV antibiotics treatment in the [facility] ( she has had C diff in the past ), will check Procalcitonin and if + , do CT of Chest to verify lung infection before starting abx - Pulmonary consult- Dr Benz CHF, systolic and diastolic , mild decompensation - will gently diurese pt - d/c IVF started in ED Glucose 42 on BMP done in ED - pt states she has not eaten the whole day - 1/2 amp of D50 given
[2018-03-04] MEDS ORDERED: Albuterol 0.083% Inhal Sol (2.5 mg/3 mL) UD INH PRN (18:19)
[2018-03-04] MEDS: Levalbuterol 1.25 MG/3 ML Inhal Soln UD INH SCH ×2 (19:38)
[2018-03-04] MEDS: Ipratropium 0.02% Inhal Soln (0.5 mg/2.5 ml) UD IH SCH (19:38)
[2018-03-04 21:14] LABS: ABG ALLEN TEST YES; ARTERIAL BLOOD GAS HCO3 24.2 mmol/L (21-28); ARTERIAL BLOOD GAS HEMOGLOBIN 9.8 g/dL (11.7-17.4); ARTERIAL BLOOD GAS O2 CAPACITY 13.5 mL/dL (16-24); ARTERIAL BLOOD GAS O2 CONTENT 13.4 ML/dL (15-23); ARTERIAL BLOOD GAS PCO2 48 mm/Hg (35-45); ARTERIAL BLOOD GAS PH 7.33 (7.35-7.45); ARTERIAL BLOOD GAS PO2 94 mm/Hg (80-100); ARTERIAL BLOOD GAS TCO2 26.8 mmol/L (22-28)
[2018-03-04] MEDS ORDERED: methylPREDNISolone 40 MG in Sodium Chloride 0.9% 50 ML IVPB SCH (22:00)
[2018-03-04] MEDS: MethylPREDNISolone 40 mg Vial IVP SCH (22:28)
[2018-03-05] MEDS: Levalbuterol 1.25 MG/3 ML Inhal Soln UD INH SCH ×4 (00:59→19:19)
[2018-03-05] MEDS: Ipratropium 0.02% Inhal Soln (0.5 mg/2.5 ml) UD IH SCH ×4 (00:59→19:19)
[2018-03-05 02:01] LABS: SQUAMOUS EPITHIAL < 1 /hpf (0-5); URINE BILIRUBIN NEGATIVE (NEGATIVE); URINE BLOOD NEGATIVE (NEGATIVE); URINE CLARITY CLEAR (Clear); URINE COLOR COLORLESS (YELLOW); URINE GLUCOSE (UA) NEG (Normal); URINE LEUKOCYTE ESTERASE NEG Leu/uL (Negative); URINE PROTEIN NEGATIVE (NEGATIVE); URINE UROBILINOGEN 0.2-1.0 mg/dL (0.2-1.0)
[2018-03-05] MEDS: MethylPREDNISolone 40 mg Vial IVP SCH ×4 (04:51→21:33)
[2018-03-05 07:55] LABS: HEMOGLOBIN 9.9 g/dL (12.0-16.0); MEAN CELL VOLUME 84.4 fl (81.0-99.0); MEAN CORPUSCULAR HEMOGLOBIN 25.6 pg (27.0-31.0); MEAN CORPUSCULAR HGB CONC 30.4 g/dL (33.0-37.0); RBC 3.86 Mil/uL (3.80-5.20); RED CELL DISTRIBUTION WIDTH 22.4 % (11.5-14.5)
[2018-03-05 08:29] LABS: B-TYPE NATRIURETIC PEPTIDE 4730 pg/ml (0-900)
[2018-03-05 08:40] LABS: BLOOD UREA NITROGEN 6 mg/dl (7-17); CALCIUM 7.1 mg/dL (8.4-10.2); GFR NON-AFRICAN AMERICAN 50
--- NOTE | 2018-03-05 08:41 | CP.PCM.PN ---
<EverettBrea - Last Filed: 03/05/18 11:03> Subjective - Date & Time of Evaluation Date of Evaluation: 03/05/18 Time of Evaluation: 09:00 - Subjective Subjective: No acute overnight events. Pt complains of nausea and decreased appetite, last full meal 3 days ago. Denies SOB now on 4L NC, does have a cough denies sputum production. Denies fevers, chills, chest pain, vomiting, diarrhea, constipation or dysuria. Objective - Vital Signs/Intake and Output Vital Signs (last 24 hours): Temp Pulse Resp BP Pulse Ox 97.2 F L 82 20 86/51 L 96 03/05/18 05:03 03/05/18 05:03 03/05/18 05:03 03/05/18 05:03 03/05/18 05:03 - Medications Medications: Current Medications Acetaminophen (Tylenol 325mg Tab) 650 mg PO Q6 PRN PRN Reason: Pain, Mild (1-3)/headache Acetazolamide (Diamox 250 Mg Tab) 250 mg PO DAILY [facility] Albuterol Sulfate (Albuterol 0.083% Inhal Aby (2.5 Mg/3 Ml) Ud) 2.5 mg INH RQ4 PRN PRN Reason: Shortness of Breath Alprazolam (Xanax) 0.25 mg PO DAILY [facility] Stop: 03/12/18 09:01 Anastrozole (Arimidex 1 Mg Tab) 1 mg PO DAILY [facility] Aspirin (Aspirin Chewable) 81 mg PO DAILY [facility] Atorvastatin Calcium (Lipitor) 40 mg PO HS [facility] Last Admin: 03/04/18 22:28 Dose: 40 mg Enoxaparin Sodium (Lovenox) 40 mg SC DAILY [facility]; Protocol Gabapentin (Neurontin) 600 mg PO Q8 [facility] Last Admin: 03/05/18 00:01 Dose: 600 mg Ipratropium [place] (Atrovent) 0.5 mg IH RQ6 [facility] Last Admin: 03/05/18 08:27 Dose: 0.5 mg Levalbuterol HCl (Xopenex) 1.25 mg INH RQ6 [facility] Last Admin: 03/05/18 08:27 Dose: 1.25 mg Magnesium Oxide (Mag-Ox) 400 mg PO DAILY [facility] Methimazole (Tapazole) 5 mg PO QPM [facility] Methylprednisolone (Solu-Medrol) 40 mg IVP Q6 [facility] Last Admin: 03/05/18 04:51 Dose: 40 mg Potassium Chloride (K-Dur 20 Meq Er Tab) 40 meq PO DAILY [facility] - Labs Labs: 03/05/18 06:00 03/05/18 06:00 - Constitutional Appears: Non-toxic, No Acute Distress - Head Exam Head Exam: ATRAUMATIC, NORMAL INSPECTION, NORMOCEPHALIC Additional comments: Wearing 4 L NC - Eye Exam Eye Exam: EOMI, Normal appearance - ENT Exam ENT Exam: Mucous Membranes Moist - Respiratory Exam Respiratory Exam: Decreased Breath Sounds, Rales (Bibasilar), Wheezes, NORMAL BREATHING PATTERN - Cardiovascular Exam Cardiovascular Exam: RRR, +S1, +S2 Additional comments: B/L radical mastectomy surgery - GI/Abdominal Exam GI & Abdominal Exam: Distended, Soft, Normal Bowel Sounds - Extremities Exam Additional comments: B/L LE bruising R UE lymphedema - Neurological Exam Neurological Exam: Alert, Awake, Oriented x3 Assessment and Plan - Assessment and Plan (Free Text) Assessment: 67 yo F with PMHx of COPD, sys/leigh CHF, HTN, hyperthyroidism, hx breast CA and multiple other co-morbidities is admitted for CHF, COPD exacerbation. COPD exacerbation, acute -acute on chronic -CXR noted for COPD changes, no infection noted -cont O2 via NC, 4L O2 -start Xopenex, Albuterol, Atrovent and Solumedrol 40 Q6 -stopped Abx, pt afebrile(Received dose of IV vanc and zosyn in ED)Just completed IV antibiotics treatment in the [facility] [place] (she has had C diff in the past) -ABG- Resp Acidosis -EKG sinus tachy, prolong QTc -F/u procalcitonin if +, do CT of Chest to verify lung infection before starting abx -Pulmonary consult-Dr. Benz follow up recs -Started Zofran Q6h PRN CHF, systolic and diastolic , mild decompensation -acute on chronic -gentle diuresis due to low bp- Acetazolamide -d/c IVF started in ED -Echo 11/2017: EF 60-65% -elevated pro-BNP Leukocytosis -resolved -likely 2/2 to COPD, steroid use, r/o infections -afebrile, WBC normal -CXR neg for infiltrate, U/A negative -follow up bcx, ucx, and pro-calcitonin Hypokalemia -K 3.0 -Gave 40meq K PO Hypocalcemia -Ca-7.1 -Ca correction due to hypoalbuminemia -8.6 Hypotensive -chronic -cont with home meds Normocytic anemia -chronic, stable Hyperthyroidism -chronic, controlled -c/w home meds Breast CA -chronic -c/w home meds DVT Prophlx -Lovenox Sc Code Status -DNR <Josefa Pimentel - Last Filed: 03/06/18 13:06> Objective - Vital Signs/Intake and Output Vital Signs (last 24 hours): Temp Pulse Resp BP Pulse Ox 97.8 F 95 H 18 97/54 L 95 03/06/18 12:21 03/06/18 12:21 03/06/18 12:21 03/06/18 12:21 03/06/18 12:21 - Medications Medications: Current Medications Acetaminophen (Tylenol 325mg Tab) 650 mg PO Q6 PRN PRN Reason: Pain, Mild (1-3)/headache Acetazolamide (Diamox 250 Mg Tab) 250 mg PO DAILY [facility] Last Admin: 03/06/18 09:10 Dose: 250 mg Albuterol Sulfate (Albuterol 0.083% Inhal Aby (2.5 Mg/3 Ml) Ud) 2.5 mg INH RQ4 PRN PRN Reason: Shortness of Breath Alprazolam (Xanax) 0.25 mg PO DAILY [facility] Stop: 03/12/18 09:01 Last Admin: 03/06/18 09:20 Dose: 0.25 mg Anastrozole (Arimidex 1 Mg Tab) 1 mg PO DAILY [facility] Last Admin: 03/06/18 09:17 Dose: 1 mg Aspirin (Aspirin Chewable) 81 mg PO DAILY [facility] Last Admin: 03/06/18 09:09 Dose: 81 mg Atorvastatin Calcium (Lipitor) 40 mg PO HS [facility] Last Admin: 03/05/18 21:33 Dose: 40 mg Enoxaparin Sodium (Lovenox) 40 mg SC DAILY [facility]; Protocol Last Admin: 03/06/18 09:11 Dose: 40 mg Gabapentin (Neurontin) 600 mg PO Q8 [facility] Last Admin: 03/06/18 09:15 Dose: 600 mg Ipratropium [place] (Atrovent) 0.5 mg IH RQ6 [facility] Last Admin: 03/06/18 08:06 Dose: 0.5 mg Levalbuterol HCl (Xopenex) 1.25 mg INH RQ6 [facility] Last Admin: 03/06/18 08:06 Dose: 1.25 mg Magnesium Oxide (Mag-Ox) 400 mg PO DAILY [facility] Last Admin: 03/06/18 09:14 Dose: 400 mg Methimazole (Tapazole) 5 mg PO QPM [facility] Last Admin: 03/05/18 17:15 Dose: 5 mg Methylprednisolone (Solu-Medrol) 40 mg IVP Q12 [facility] Stop: 03/06/18 23:59 Last Admin: 03/06/18 09:20 Dose: 40 mg Methylprednisolone (Solu-Medrol) 30 mg IVP Q12 [facility] Ondansetron HCl (Zofran Tab) 4 mg PO Q6 PRN PRN Reason: Nausea/Vomiting Potassium Chloride (K-Dur 20 Meq Er Tab) 40 meq PO DAILY [facility] Last Admin: 03/06/18 09:10 Dose: 40 meq - Labs Labs: 03/06/18 04:25 03/06/18 04:25 Attending/Attestation - Attestation I have personally seen and examined this patient.: Yes I have fully participated in the care of the patient.: Yes I have reviewed all pertinent clinical information, including history, physical exam and plan: Yes Notes (Text): 03/06/18 13:06 agree with findings and plan as above. doing well and improving likely discharge tomorrow
[2018-03-05] MEDS ORDERED: Azithromycin 500 MG in Sodium Chloride 0.9% 250 ML IVPB ONE (09:00)
[2018-03-05] MEDS: Enoxaparin 40 mg Syringe SC SCH (09:11)
[2018-03-05] MEDS: Potassium Chloride 20 mEq ER Tab PO SCH (09:14)
[2018-03-05] MEDS: Magnesium Oxide 400 mg Tab UD PO SCH (09:15)
[2018-03-05] MEDS ORDERED: Potassium Chloride 20 mEq ER Tab PO ONE (13:49)
--- NOTE | 2018-03-05 13:58 | CARD ---
APPROVED REPORT Date of service: 03/04/2018 EKG Measurement Heart [id number] <Conclusion> Sinus tachycardia Cannot rule out Inferior infarct, age undetermined Abnormal ECG
[2018-03-05] MEDS ORDERED: methIMAzole 5 MG TAB PO SCH (18:00)
[2018-03-06] MEDS: Levalbuterol 1.25 MG/3 ML Inhal Soln UD INH SCH ×3 (01:01→13:48)
[2018-03-06] MEDS: Ipratropium 0.02% Inhal Soln (0.5 mg/2.5 ml) UD IH SCH ×3 (01:01→13:48)
[2018-03-06] MEDS: MethylPREDNISolone 40 mg Vial IVP SCH (05:00)
[2018-03-06 05:30] LABS: BASO % 0.2 % (0.0-2.0); EOS % 0.1 % (0.0-4.0); HEMOGLOBIN 9.7 g/dL (12.0-16.0); LYMPH # 0.6 K/uL (1.0-4.3); LYMPH % 9.9 % (20.0-40.0); MEAN CELL VOLUME 86.9 fl (81.0-99.0); MEAN CORPUSCULAR HEMOGLOBIN 26.2 pg (27.0-31.0); MEAN CORPUSCULAR HGB CONC 30.1 g/dL (33.0-37.0); MEAN PLATELET VOLUME 7.1 fl (7.2-11.7); MONO # 0.5 K/uL (0.0-0.8); MONO % 8.1 % (0.0-10.0); NEUT # 4.5 K/uL (1.8-7.0); NEUT % 81.7 % (50.0-75.0); NRBC % 0.7 % (0.0-0.0); PLATELET COUNT 340 K/uL (130-400); RED CELL DISTRIBUTION WIDTH 22.4 % (11.5-14.5); WHITE BLOOD COUNT 5.6 K/uL (4.8-10.8)
[2018-03-06 05:35] VITALS: RESP 18
[2018-03-06 06:12] LABS: ALB/GLOB RATIO 0.6 (1.0-2.1); ALT/SGPT 26 U/L (9-52); AST/SGOT 82 U/L (14-36); BLOOD UREA NITROGEN 8 mg/dl (7-17); CALCIUM 7.2 mg/dL (8.4-10.2); GFR NON-AFRICAN AMERICAN 55
[2018-03-06 07:21] LABS: LYMPHOCYTE 5 % (20-50); MONOCYTE 6 % (0-10); NEUTROPHIL 89 % (42-75); PLATELET ESTIMATE NORMAL (NORMAL); TOTAL CELLS COUNTED 100
[2018-03-06 07:22] LABS: ANISOCYTOSIS SLIGHT
[2018-03-06 07:23] LABS: HYPOCHROMIC SLIGHT; LARGE PLATELETS PRESENT; OVALOCYTES SLIGHT; TEARDROP CELLS MODERATE
[2018-03-06 08:27] VITALS: TEMP 97.8; O2SAT 95
--- NOTE | 2018-03-06 08:46 | CP.PCM.PN ---
Objective - Vital Signs/Intake and Output Vital Signs (last 24 hours): Temp Pulse Resp BP Pulse Ox 97.8 F 96 H 18 102/65 95 03/06/18 08:25 03/06/18 08:25 03/06/18 08:25 03/06/18 08:25 03/06/18 08:25 - Medications Medications: Current Medications Acetaminophen (Tylenol 325mg Tab) 650 mg PO Q6 PRN PRN Reason: Pain, Mild (1-3)/headache Acetazolamide (Diamox 250 Mg Tab) 250 mg PO DAILY [facility] Last Admin: 03/05/18 09:11 Dose: 250 mg Albuterol Sulfate (Albuterol 0.083% Inhal Aby (2.5 Mg/3 Ml) Ud) 2.5 mg INH RQ4 PRN PRN Reason: Shortness of Breath Alprazolam (Xanax) 0.25 mg PO DAILY [facility] Stop: 03/12/18 09:01 Last Admin: 03/05/18 09:18 Dose: 0.25 mg Anastrozole (Arimidex 1 Mg Tab) 1 mg PO DAILY [facility] Last Admin: 03/05/18 09:12 Dose: 1 mg Aspirin (Aspirin Chewable) 81 mg PO DAILY [facility] Last Admin: 03/05/18 09:13 Dose: 81 mg Atorvastatin Calcium (Lipitor) 40 mg PO HS [facility] Last Admin: 03/05/18 21:33 Dose: 40 mg Enoxaparin Sodium (Lovenox) 40 mg SC DAILY [facility]; Protocol Last Admin: 03/05/18 09:11 Dose: 40 mg Gabapentin (Neurontin) 600 mg PO Q8 [facility] Last Admin: 03/06/18 00:20 Dose: 600 mg Ipratropium [place] (Atrovent) 0.5 mg IH RQ6 [facility] Last Admin: 03/06/18 08:06 Dose: 0.5 mg Levalbuterol HCl (Xopenex) 1.25 mg INH RQ6 [facility] Last Admin: 03/06/18 08:06 Dose: 1.25 mg Magnesium Oxide (Mag-Ox) 400 mg PO DAILY [facility] Last Admin: 03/05/18 09:15 Dose: 400 mg Methimazole (Tapazole) 5 mg PO QPM [facility] Last Admin: 03/05/18 17:15 Dose: 5 mg Methylprednisolone (Solu-Medrol) 40 mg IVP Q12 [facility] Ondansetron HCl (Zofran Tab) 4 mg PO Q6 PRN PRN Reason: Nausea/Vomiting Potassium Chloride (K-Dur 20 Meq Er Tab) 40 meq PO DAILY [facility] Last Admin: 03/05/18 09:14 Dose: 40 meq - Labs Labs: 03/06/18 04:25 03/06/18 04:25
[2018-03-06] MEDS ORDERED: MethylPREDNISolone 40 mg Vial IVP SCH (09:00)
[2018-03-06] MEDS: Potassium Chloride 20 mEq ER Tab PO SCH (09:10)
[2018-03-06] MEDS: Enoxaparin 40 mg Syringe SC SCH (09:11)
[2018-03-06] MEDS: Magnesium Oxide 400 mg Tab UD PO SCH (09:14)
--- NOTE | 2018-03-06 10:29 | CP.PCM.CON ---
History of Present Illness - History of Present Illness History of Present Illness: This 67 year old female with a history of COPD was admitted through the emergency room because of a one day history of chest discomfort and shortness of breath. She had been in her usual state of health and slowly progressing with physical therapy. She denied any fever or chills, but did have a non-productive cough for two days. She does admit to moderate chest pain which is aggravated by the cough. There has been no history of hemoptysis. On presentation she was noted to have leukocytosis of 13.3 with hemoglobin of 10.2 and plts 434. Oxygenation was good and her PaCO2 was mildly elevated with mild acidosis. A chest x_ray done in the ER showed hyperinflation of both lungs and no infiltrates or effusions. She has been intermittently mildly tachycardic since admission. On exam today she is well oriented, cooperative and in no acute distress. Past Patient History - Infectious Disease Hx of Infectious Diseases: None - Tetanus Immunizations Tetanus Immunization: Unknown - Past Medical History & Family History Past Medical History?: Yes - Past Social History Smoking Status: Former Smoker - CARDIAC Hx Cardiac Disorders: Yes Hx Cardia Arrhythmia: Yes Hx Congestive Heart Failure: Yes (Diastolic) Hx Hypertension: Yes - PULMONARY Hx Respiratory Disorders: Yes Hx Asthma: Yes Hx Bronchitis: Yes Hx Chronic Obstructive Pulmonary Disease (COPD): Yes Hx Pneumonia: Yes - NEUROLOGICAL Hx Neurological Disorder: Yes Other/Comment: Peripheral neuropathy - HEENT Hx HEENT Problems: Yes Other/Comment: Buccal abscess/osteo of mandible - RENAL Hx Chronic Kidney Disease: No - ENDOCRINE/METABOLIC Hx Endocrine Disorders: Yes Hx Hyperthyroidism: Yes Hx Hypothyroidism: Yes - HEMATOLOGICAL/ONCOLOGICAL Hx Blood Disorders: Yes Hx AIDS: No Hx Anemia: Yes Hx Human Immunodeficiency Virus (HIV): No - INTEGUMENTARY Hx Dermatological Problems: Yes Hx Cellulitis: Yes (recurring RUE) Other/Comment: Chronic lymphedema right upper extremity - MUSCULOSKELETAL/RHEUMATOLOGICAL Hx Musculoskeletal Disorders: Yes Hx Falls: No Hx Fractures: Yes Hx Osteoporosis: Yes - GASTROINTESTINAL Hx Gastrointestinal Disorders: Yes Hx Gall Bladder Disease: Yes - GENITOURINARY/GYNECOLOGICAL Hx Genitourinary Disorders: No - PSYCHIATRIC Hx Psychophysiologic Disorder: No Hx Substance Use: No - SURGICAL HISTORY Hx Surgeries: Yes Hx Mastectomy: Yes (right in 1998; left in 2008) Hx Orthopedic Surgery: Yes (2003 rigtht shoulder prosthesis, removal of hardware 2013) Hx Tubal Ligation: Yes Other/Comment: shoulder and humerous replacement with joint space infection and eventual removal of hardware in right shoulder and chronic lymphedema of RUE, groin cyst removal, cervical spinal fusion 2007, lumbar spinal fusion 2007. Tracheostomy. - ANESTHESIA Hx Anesthesia: Yes Hx Anesthesia Reactions: No Hx Malignant Hyperthermia: No Meds Allergies/Adverse Reactions: Allergies Allergy/AdvReac Type Severity Reaction Status Date / Time paper tape Allergy RASH Uncoded 03/04/18 14:20 - Medications Medications: Current Medications Acetaminophen (Tylenol 325mg Tab) 650 mg PO Q6 PRN PRN Reason: Pain, Mild (1-3)/headache Acetazolamide (Diamox 250 Mg Tab) 250 mg PO DAILY [facility] Last Admin: 03/06/18 09:10 Dose: 250 mg Albuterol Sulfate (Albuterol 0.083% Inhal Aby (2.5 Mg/3 Ml) Ud) 2.5 mg INH RQ4 PRN PRN Reason: Shortness of Breath Alprazolam (Xanax) 0.25 mg PO DAILY [facility] Stop: 03/12/18 09:01 Last Admin: 03/06/18 09:20 Dose: 0.25 mg Anastrozole (Arimidex 1 Mg Tab) 1 mg PO DAILY [facility] Last Admin: 03/06/18 09:17 Dose: 1 mg Aspirin (Aspirin Chewable) 81 mg PO DAILY [facility] Last Admin: 03/06/18 09:09 Dose: 81 mg Atorvastatin Calcium (Lipitor) 40 mg PO HS [facility] Last Admin: 03/05/18 21:33 Dose: 40 mg Enoxaparin Sodium (Lovenox) 40 mg SC DAILY [facility]; Protocol Last Admin: 03/06/18 09:11 Dose: 40 mg Gabapentin (Neurontin) 600 mg PO Q8 [facility] Last Admin: 03/06/18 09:15 Dose: 600 mg Ipratropium [place] (Atrovent) 0.5 mg IH RQ6 [facility] Last Admin: 03/06/18 08:06 Dose: 0.5 mg Levalbuterol HCl (Xopenex) 1.25 mg INH RQ6 [facility] Last Admin: 03/06/18 08:06 Dose: 1.25 mg Magnesium Oxide (Mag-Ox) 400 mg PO DAILY [facility] Last Admin: 03/06/18 09:14 Dose: 400 mg Methimazole (Tapazole) 5 mg PO QPM [facility] Last Admin: 03/05/18 17:15 Dose: 5 mg Methylprednisolone (Solu-Medrol) 40 mg IVP Q12 [facility] Last Admin: 03/06/18 09:20 Dose: 40 mg Ondansetron HCl (Zofran Tab) 4 mg PO Q6 PRN PRN Reason: Nausea/Vomiting Potassium Chloride (K-Dur 20 Meq Er Tab) 40 meq PO DAILY [facility] Last Admin: 03/06/18 09:10 Dose: 40 meq Results - Vital Signs Recent Vital Signs: Last Vital Signs Temp 97.8 F 03/06/18 08:25 Pulse 96 H 03/06/18 08:25 Resp 18 03/06/18 08:25 BP 102/65 03/06/18 08:25 Pulse Ox 95 03/06/18 08:25 - Labs Result Diagrams: 03/06/18 04:25 03/06/18 04:25 Labs: Laboratory Results - last 24 hr 03/04/18 03/04/18 03/05/18 17:56 21:44 06:00 WBC RBC Hgb Hct MCV MCH MCHC RDW Plt Count MPV Neut % (Auto) Lymph % (Auto) [place] % (Auto) Eos % (Auto) Baso % (Auto) Neut # (Auto) Lymph # (Auto) [place] # (Auto) Eos # (Auto) Baso # (Auto) Neutrophils % (Manual) Lymphocytes % (Manual) Monocytes % (Manual) Platelet Estimate Large Platelets Hypochromasia (manual) Anisocytosis (manual) Tear Drop Cells Ovalocytes Sodium Potassium Chloride Carbon Dioxide Anion Gap BUN Creatinine Est GFR ( Amer) Est GFR (Non-Af Amer) POC Glucose (mg/dL) 69 84 Random Glucose Calcium Magnesium Total Bilirubin AST ALT Alkaline Phosphatase Total Protein Albumin Globulin Albumin/Globulin Ratio Procalcitonin 1.02 H 03/05/18 03/06/18 03/06/18 10:45 04:25 04:25 WBC 5.6 RBC 3.70 L Hgb 9.7 L Hct 32.1 L MCV 86.9 D MCH 26.2 L MCHC 30.1 L RDW 22.4 H Plt Count 340 MPV 7.1 L Neut % (Auto) 81.7 H Lymph % (Auto) 9.9 L [place] % (Auto) 8.1 Eos % (Auto) 0.1 Baso % (Auto) 0.2 Neut # (Auto) 4.5 Lymph # (Auto) 0.6 L [place] # (Auto) 0.5 Eos # (Auto) 0.0 Baso # (Auto) 0.0 Neutrophils % (Manual) 89 H Lymphocytes % (Manual) 5 L Monocytes % (Manual) 6 Platelet Estimate Normal Large Platelets Present Hypochromasia (manual) Slight Anisocytosis (manual) Slight Tear Drop Cells Moderate Ovalocytes Slight Sodium 137 Potassium 3.7 Chloride 103 Carbon Dioxide 27 Anion Gap 11 BUN 8 Creatinine 1.0 Est GFR ( Amer) > 60 Est GFR (Non-Af Amer) 55 POC Glucose (mg/dL) Random Glucose 132 H Calcium 7.2 L Magnesium 1.9 Total Bilirubin 0.2 AST 82 H ALT 26 Alkaline Phosphatase 288 H D Total Protein 5.4 L Albumin 2.0 L Globulin 3.4 Albumin/Globulin Ratio 0.6 L Procalcitonin Assessment & Plan (1) COPD with exacerbation Status: Acute Priority: High Comment: Good response to initial treatment. Would expect steroid dosing can be quickly reduced. Will withhold acetazolamide. Monitor CO2 levels. Leukocytosis has resolved; would not give antibiotics at this point. (2) Hyperthyroidism Status: Chronic Priority: Medium Comment: Well controlled on methimazole. (3) Lymphedema of arm Status: Chronic Priority: Medium Comment: Stable. (4) Elevated alkaline phosphatase level Status: Chronic Priority: Medium Comment: With normal isoenzymes? - Date & Time Date: 03/06/18 Time: 10:46
--- NOTE | 2018-03-06 10:54 | CP.PCM.DIS ---
<Lilo Elliott - Last Filed: 03/06/18 13:25> Provider - Provider Date of Admission: 03/04/18 17:18 Attending physician: Georgia Camilo MD Primary care physician: Bala Benz MD Consults: 03/05/18 02:58 Nursing Referral for Wound Care Routine Comment: Physician Instructions: Reason For Exam: sacral rash Time Spent in preparation of Discharge (in minutes): 35 Diagnosis - Discharge Diagnosis (1) Acute exacerbation of CHF (congestive heart failure) Status: Acute (2) COPD with exacerbation Status: Acute Priority: High Hospital Course - Lab Results Lab Results: Micro Results 03/04/18 23:54 Urine,Clean Catch Urine Culture - Final No Growth (<1,000 CFU/ML) 03/04/18 14:45 Blood Blood Culture - Preliminary NO GROWTH AFTER 24 HOURS 03/04/18 14:45 Blood-Venous Blood Culture - Preliminary NO GROWTH AFTER 24 HOURS Most Recent Lab Values WBC 5.6 K/uL (4.8-10.8) 03/06/18 04:25 RBC 3.70 Mil/uL (3.80-5.20) L 03/06/18 04:25 Hgb 9.7 g/dL (12.0-16.0) L 03/06/18 04:25 Hct 32.1 % (34.0-47.0) L 03/06/18 04:25 MCV 86.9 fl (81.0-99.0) D 03/06/18 04:25 MCH 26.2 pg (27.0-31.0) L 03/06/18 04:25 MCHC 30.1 g/dL (33.0-37.0) L 03/06/18 04:25 RDW 22.4 % (11.5-14.5) H 03/06/18 04:25 Plt Count 340 K/uL (130-400) 03/06/18 04:25 MPV 7.1 fl (7.2-11.7) L 03/06/18 04:25 Neut % (Auto) 81.7 % (50.0-75.0) H 03/06/18 04:25 Lymph % (Auto) 9.9 % (20.0-40.0) L 03/06/18 04:25 [place] % (Auto) 8.1 % (0.0-10.0) 03/06/18 04:25 Eos % (Auto) 0.1 % (0.0-4.0) 03/06/18 04:25 Baso % (Auto) 0.2 % (0.0-2.0) 03/06/18 04:25 Neut # (Auto) 4.5 K/uL (1.8-7.0) 03/06/18 04:25 Lymph # (Auto) 0.6 K/uL (1.0-4.3) L 03/06/18 04:25 [place] # (Auto) 0.5 K/uL (0.0-0.8) 03/06/18 04:25 Eos # (Auto) 0.0 K/uL (0.0-0.7) 03/06/18 04:25 Baso # (Auto) 0.0 K/uL (0.0-0.2) 03/06/18 04:25 Neutrophils % (Manual) 89 % (42-75) H 03/06/18 04:25 Lymphocytes % (Manual) 5 % (20-50) L 03/06/18 04:25 Monocytes % (Manual) 6 % (0-10) 03/06/18 04:25 Platelet Estimate Normal (NORMAL) 03/06/18 04:25 Large Platelets Present 03/06/18 04:25 Hypochromasia (manual) Slight 03/06/18 04:25 Anisocytosis (manual) Slight 03/06/18 04:25 Tear Drop Cells Moderate 03/06/18 04:25 Ovalocytes Slight 03/06/18 04:25 D-Dimer, Quantitative 388 ng/mlDDU (0-230) H 03/04/18 18:03 pCO2 48 mm/Hg (35-45) H 03/04/18 20:59 pO2 94 mm/Hg (80-100) 03/04/18 20:59 HCO3 24.2 mmol/L (21-28) 03/04/18 20:59 ABG pH 7.33 (7.35-7.45) L 03/04/18 20:59 ABG Total CO2 26.8 mmol/L (22-28) 03/04/18 20:59 ABG O2 Saturation 99.0 % (95-98) H 03/04/18 20:59 ABG O2 Content 13.4 ML/dL (15-23) L 03/04/18 20:59 ABG Base Excess -0.9 mmol/L (-2.0-3.0) 03/04/18 20:59 ABG Hemoglobin 9.8 g/dL (11.7-17.4) L 03/04/18 20:59 ABG Carboxyhemoglobin 1.7 % (0.5-1.5) H 03/04/18 20:59 POC ABG HHb (Measured) 1.0 % (0.0-5.0) 03/04/18 20:59 ABG Methemoglobin 0.9 % (0.0-3.0) 03/04/18 20:59 ABG O2 Capacity 13.5 mL/dL (16-24) L 03/04/18 20:59 Tawanda Test Yes 03/04/18 20:59 VBG pH 7.32 (7.32-7.43) 03/04/18 14:44 VBG pCO2 54 mmHg (40-60) 03/04/18 14:44 VBG HCO3 25.1 mmol/L 03/04/18 14:44 VBG Total CO2 29.5 mmol/L (22-28) H 03/04/18 14:44 VBG O2 Sat (Calc) 76.7 % (40-65) H 03/04/18 14:44 VBG Base Excess 0.9 mmol/L (0.0-2.0) 03/04/18 14:44 VBG Potassium 3.5 mmol/L (3.6-5.2) L 03/04/18 14:44 A-a O2 Difference 103.0 mm/Hg 03/04/18 20:59 Hgb O2 Saturation 96.4 % (95.0-98.0) 03/04/18 20:59 Sodium 126.0 mmol/L (132-148) L 03/04/18 14:44 Chloride 97.0 mmol/L (98-107) L 03/04/18 14:44 Glucose 46 mg/dL (65-105) L 03/04/18 14:44 Lactate 0.9 mmol/L (0.7-2.1) 03/04/18 14:44 Vent Mode 4lnc 03/04/18 20:59 FiO2 36.0 % 03/04/18 20:59 Sodium 137 mmol/l (132-148) 03/06/18 04:25 Potassium 3.7 MMOL/L (3.6-5.0) 03/06/18 04:25 Chloride 103 mmol/L (98-107) 03/06/18 04:25 Carbon Dioxide 27 mmol/L (22-30) 03/06/18 04:25 Anion Gap 11 (10-20) 03/06/18 04:25 BUN 8 mg/dl (7-17) 03/06/18 04:25 Creatinine 1.0 mg/dl (0.7-1.2) 03/06/18 04:25 Est GFR ( Amer) > 60 03/06/18 04:25 Est GFR (Non-Af Amer) 55 03/06/18 04:25 POC Glucose (mg/dL) 84 mg/dL (65-110) 03/04/18 21:44 Random Glucose 132 mg/dL (65-105) H 03/06/18 04:25 Calcium 7.2 mg/dL (8.4-10.2) L 03/06/18 04:25 Magnesium 1.9 MG/DL (1.6-2.3) 03/05/18 10:45 Total Bilirubin 0.2 mg/dl (0.2-1.3) 03/06/18 04:25 AST 82 U/L (14-36) H 03/06/18 04:25 ALT 26 U/L (9-52) 03/06/18 04:25 Alkaline Phosphatase 288 U/L (38-126) H D 03/06/18 04:25 Troponin I 0.0180 ng/mL (0.00-0.120) 03/04/18 15:00 NT-Pro-B Natriuret Pep 4730 pg/ml (0-900) H 03/05/18 06:00 Total Protein 5.4 G/DL (6.3-8.2) L 03/06/18 04:25 Albumin 2.0 g/dL (3.5-5.0) L 03/06/18 04:25 Globulin 3.4 gm/dL (2.2-3.9) 03/06/18 04:25 Albumin/Globulin Ratio 0.6 (1.0-2.1) L 03/06/18 04:25 Procalcitonin 1.02 NG/ML (0.19-0.49) H 03/05/18 06:00 TSH 3rd Generation 1.49 mIU/ML (0.46-4.68) 03/04/18 18:03 Venous Blood Potassium 3.5 mmol/L (3.6-5.2) L 03/04/18 14:44 Urine Color Colorless (YELLOW) 03/04/18 23:54 Urine Clarity Clear (Clear) 03/04/18 23:54 Urine pH 6.0 (5.0-8.0) 03/04/18 23:54 Ur Specific [place] < 1.005 (1.003-1.030) 03/04/18 23:54 Urine Protein Negative mg/dL (NEGATIVE) 03/04/18 23:54 Urine Glucose (UA) Neg mg/dL (Normal) 03/04/18 23:54 Urine Ketones Negative mg/dL (NEGATIVE) 03/04/18 23:54 Urine Blood Negative (NEGATIVE) 03/04/18 23:54 Urine Nitrate Negative (NEGATIVE) 03/04/18 23:54 Urine Bilirubin Negative (NEGATIVE) 03/04/18 23:54 Urine Urobilinogen 0.2-1.0 mg/dL (0.2-1.0) 03/04/18 23:54 Ur Leukocyte Esterase Neg Ben/uL (Negative) 03/04/18 23:54 Urine RBC (Auto) 1 /hpf (0-3) 03/04/18 23:54 Urine Microscopic WBC 1 /hpf (0-5) 03/04/18 23:54 Ur Squamous Epith Cells < 1 /hpf (0-5) 03/04/18 23:54 - Hospital Course Hospital Course: 67 YO Female with PMHx of COPD, sys/leigh CHF, HTN, hyperthyroidism, hx breast CA and multiple other co-morbidities is admitted for CHF, COPD exacerbation. Patient underwent treated for COPD and CHF and has remained hemodynamically stable since admission. Pulmonology was consulted, pt seen by Dr. Benz and stable per pulmonary. Today, pt is doing well, VS remains stable and pt is afebrile. Will d/c patient to intermediate with follow up with PMD and PO jeremias roids for 2 more days for a total of 5 days. Prednisone 40mg PO daily x 2 days Discharge Exam - Head Exam Head Exam: ATRAUMATIC, NORMAL INSPECTION, NORMOCEPHALIC Additional comments: 4L on NC - Eye Exam Eye Exam: EOMI, Normal appearance - ENT Exam ENT Exam: Mucous Membranes Moist - Respiratory Exam Respiratory Exam: Wheezes (expiratory b/l ), NORMAL BREATHING PATTERN - Cardiovascular Exam Cardiovascular Exam: REGULAR RHYTHM, +S1, +S2 - GI/Abdominal Exam GI & Abdominal Exam: Normal Bowel Sounds, Soft. absent: Tenderness - Neurological Exam Neurological exam: Alert, Oriented x3 - Psychiatric Exam Psychiatric exam: Normal Mood Discharge Plan - Discharge Medications Prescriptions: RX: Prednisone [Deltasone] 40 mg PO DAILY 2 Days tablet - Follow Up Plan Condition: STABLE Disposition: TRANSF TO SNF Patient education suggested?: Yes Instructions: Heart Failure, Adult (DC), Exacerbation of COPD (DC) Additional Instructions: Please follow up with your PMD in 1 week ER precautions discussed with patient Referrals: Bala Benz MD [Primary Care Provider] - <Josefa Pimentel - Last Filed: 03/07/18 12:53> Provider - Provider Date of Admission: 03/04/18 17:18 Attending physician: Georgia Camilo MD Primary care physician: Bala Benz MD Consults: 03/05/18 02:58 Nursing Referral for Wound Care Routine Comment: Physician Instructions: Reason For Exam: sacral rash Hospital Course - Lab Results Lab Results: Micro Results 03/04/18 14:45 Blood Blood Culture - Preliminary NO GROWTH AFTER 48 HOURS 03/04/18 14:45 Blood-Venous Blood Culture - Preliminary NO GROWTH AFTER 48 HOURS 03/04/18 23:54 Urine,Clean Catch Urine Culture - Final No Growth (<1,000 CFU/ML) Most Recent Lab Values WBC 5.6 K/uL (4.8-10.8) 03/06/18 04:25 RBC 3.70 Mil/uL (3.80-5.20) L 03/06/18 04:25 Hgb 9.7 g/dL (12.0-16.0) L 03/06/18 04:25 Hct 32.1 % (34.0-47.0) L 03/06/18 04:25 MCV 86.9 fl (81.0-99.0) D 03/06/18 04:25 MCH 26.2 pg (27.0-31.0) L 03/06/18 04:25 MCHC 30.1 g/dL (33.0-37.0) L 03/06/18 04:25 RDW 22.4 % (11.5-14.5) H 03/06/18 04:25 Plt Count 340 K/uL (130-400) 03/06/18 04:25 MPV 7.1 fl (7.2-11.7) L 03/06/18 04:25 Neut % (Auto) 81.7 % (50.0-75.0) H 03/06/18 04:25 Lymph % (Auto) 9.9 % (20.0-40.0) L 03/06/18 04:25 [place] % (Auto) 8.1 % (0.0-10.0) 03/06/18 04:25 Eos % (Auto) 0.1 % (0.0-4.0) 03/06/18 04:25 Baso % (Auto) 0.2 % (0.0-2.0) 03/06/18 04:25 Neut # (Auto) 4.5 K/uL (1.8-7.0) 03/06/18 04:25 Lymph # (Auto) 0.6 K/uL (1.0-4.3) L 03/06/18 04:25 [place] # (Auto) 0.5 K/uL (0.0-0.8) 03/06/18 04:25 Eos # (Auto) 0.0 K/uL (0.0-0.7) 03/06/18 04:25 Baso # (Auto) 0.0 K/uL (0.0-0.2) 03/06/18 04:25 Neutrophils % (Manual) 89 % (42-75) H 03/06/18 04:25 Lymphocytes % (Manual) 5 % (20-50) L 03/06/18 04:25 Monocytes % (Manual) 6 % (0-10) 03/06/18 04:25 Platelet Estimate Normal (NORMAL) 03/06/18 04:25 Large Platelets Present 03/06/18 04:25 Hypochromasia (manual) Slight 03/06/18 04:25 Anisocytosis (manual) Slight 03/06/18 04:25 Tear Drop Cells Moderate 03/06/18 04:25 Ovalocytes Slight 03/06/18 04:25 D-Dimer, Quantitative 388 ng/mlDDU (0-230) H 03/04/18 18:03 pCO2 48 mm/Hg (35-45) H 03/04/18 20:59 pO2 94 mm/Hg (80-100) 03/04/18 20:59 HCO3 24.2 mmol/L (21-28) 03/04/18 20:59 ABG pH 7.33 (7.35-7.45) L 03/04/18 20:59 ABG Total CO2 26.8 mmol/L (22-28) 03/04/18 20:59 ABG O2 Saturation 99.0 % (95-98) H 03/04/18 20:59 ABG O2 Content 13.4 ML/dL (15-23) L 03/04/18 20:59 ABG Base Excess -0.9 mmol/L (-2.0-3.0) 03/04/18 20:59 ABG Hemoglobin 9.8 g/dL (11.7-17.4) L 03/04/18 20:59 ABG Carboxyhemoglobin 1.7 % (0.5-1.5) H 03/04/18 20:59 POC ABG HHb (Measured) 1.0 % (0.0-5.0) 03/04/18 20:59 ABG Methemoglobin 0.9 % (0.0-3.0) 03/04/18 20:59 ABG O2 Capacity 13.5 mL/dL (16-24) L 03/04/18 20:59 Tawanda Test Yes 03/04/18 20:59 VBG pH 7.32 (7.32-7.43) 03/04/18 14:44 VBG pCO2 54 mmHg (40-60) 03/04/18 14:44 VBG HCO3 25.1 mmol/L 03/04/18 14:44 VBG Total CO2 29.5 mmol/L (22-28) H 03/04/18 14:44 VBG O2 Sat (Calc) 76.7 % (40-65) H 03/04/18 14:44 VBG Base Excess 0.9 mmol/L (0.0-2.0) 03/04/18 14:44 VBG Potassium 3.5 mmol/L (3.6-5.2) L 03/04/18 14:44 A-a O2 Difference 103.0 mm/Hg 03/04/18 20:59 Hgb O2 Saturation 96.4 % (95.0-98.0) 03/04/18 20:59 Sodium 126.0 mmol/L (132-148) L 03/04/18 14:44 Chloride 97.0 mmol/L (98-107) L 03/04/18 14:44 Glucose 46 mg/dL (65-105) L 03/04/18 14:44 Lactate 0.9 mmol/L (0.7-2.1) 03/04/18 14:44 Vent Mode 4lnc 03/04/18 20:59 FiO2 36.0 % 03/04/18 20:59 Sodium 137 mmol/l (132-148) 03/06/18 04:25 Potassium 3.7 MMOL/L (3.6-5.0) 03/06/18 04:25 Chloride 103 mmol/L (98-107) 03/06/18 04:25 Carbon Dioxide 27 mmol/L (22-30) 03/06/18 04:25 Anion Gap 11 (10-20) 03/06/18 04:25 BUN 8 mg/dl (7-17) 03/06/18 04:25 Creatinine 1.0 mg/dl (0.7-1.2) 03/06/18 04:25 Est GFR ( Amer) > 60 03/06/18 04:25 Est GFR (Non-Af Amer) 55 03/06/18 04:25 POC Glucose (mg/dL) 169 mg/dL (65-110) H 03/06/18 11:42 Random Glucose 132 mg/dL (65-105) H 03/06/18 04:25 Calcium 7.2 mg/dL (8.4-10.2) L 03/06/18 04:25 Magnesium 1.9 MG/DL (1.6-2.3) 03/05/18 10:45 Total Bilirubin 0.2 mg/dl (0.2-1.3) 03/06/18 04:25 AST 82 U/L (14-36) H 03/06/18 04:25 ALT 26 U/L (9-52) 03/06/18 04:25 Alkaline Phosphatase 288 U/L (38-126) H D 03/06/18 04:25 Troponin I 0.0180 ng/mL (0.00-0.120) 03/04/18 15:00 NT-Pro-B Natriuret Pep 4730 pg/ml (0-900) H 03/05/18 06:00 Total Protein 5.4 G/DL (6.3-8.2) L 03/06/18 04:25 Albumin 2.0 g/dL (3.5-5.0) L 03/06/18 04:25 Globulin 3.4 gm/dL (2.2-3.9) 03/06/18 04:25 Albumin/Globulin Ratio 0.6 (1.0-2.1) L 03/06/18 04:25 Procalcitonin 1.02 NG/ML (0.19-0.49) H 03/05/18 06:00 TSH 3rd Generation 1.49 mIU/ML (0.46-4.68) 03/04/18 18:03 Venous Blood Potassium 3.5 mmol/L (3.6-5.2) L 03/04/18 14:44 Urine Color Colorless (YELLOW) 03/04/18 23:54 Urine Clarity Clear (Clear) 03/04/18 23:54 Urine pH 6.0 (5.0-8.0) 03/04/18 23:54 Ur Specific [place] < 1.005 (1.003-1.030) 03/04/18 23:54 Urine Protein Negative mg/dL (NEGATIVE) 03/04/18 23:54 Urine Glucose (UA) Neg mg/dL (Normal) 03/04/18 23:54 Urine Ketones Negative mg/dL (NEGATIVE) 03/04/18 23:54 Urine Blood Negative (NEGATIVE) 03/04/18 23:54 Urine Nitrate Negative (NEGATIVE) 03/04/18 23:54 Urine Bilirubin Negative (NEGATIVE) 03/04/18 23:54 Urine Urobilinogen 0.2-1.0 mg/dL (0.2-1.0) 03/04/18 23:54 Ur Leukocyte Esterase Neg Ben/uL (Negative) 03/04/18 23:54 Urine RBC (Auto) 1 /hpf (0-3) 03/04/18 23:54 Urine Microscopic WBC 1 /hpf (0-5) 03/04/18 23:54 Ur Squamous Epith Cells < 1 /hpf (0-5) 03/04/18 23:54 Attending/Attestation - Attestation I have personally seen and examined this patient.: Yes I have fully participated in the care of the patient.: Yes I have reviewed all pertinent clinical information, including history, physical exam and plan: Yes Notes (Text): 03/07/18 12:53 Seen, examined, discussed with resident. Discussed also with Dr. Benz. Patient doing well, may be discharged back to [place] with follow up PCP.
[2018-03-06 12:22] VITALS: BP 97/54; PULSE 95
[2018-03-07] MEDS ORDERED: methylPREDNISolone 30 MG in Sodium Chloride 0.9% 50 ML IV SCH (09:00)
[2018-03-07] MEDS ORDERED: MethylPREDNISolone 40 mg Vial IVP SCH (09:00)
== END 2018-03-06 14:14 ==
LOC: H.ER 14:17 → H.ERHOLD 17:18 → INTOOBSV 17:18 → H.TEL 18:39
PROVIDERS: ADMIT Internal Medicine; ATTEND Internal Medicine
DX: I11.0 Hypertensive heart disease with heart failure (principal); I50.43 Acute on chronic combined systolic (congestive) and diastolic (congestive) heart failure; J44.1 Chronic obstructive pulmonary disease with (acute) exacerbation; D63.8 Anemia in other chronic diseases classified elsewhere; J96.10 Chronic respiratory failure, unspecified whether with hypoxia or hypercapnia; M81.0 Age-related osteoporosis without current pathological fracture; Z66 Do not resuscitate; Z80.41 Family history of malignant neoplasm of ovary; Z80.3 Family history of malignant neoplasm of breast; Z80.0 Family history of malignant neoplasm of digestive organs; Z80.1 Family history of malignant neoplasm of trachea, bronchus and lung; Z85.3 Personal history of malignant neoplasm of breast; Z87.01 Personal history of pneumonia (recurrent); Z87.891 Personal history of nicotine dependence; Z90.13 Acquired absence of bilateral breasts and nipples; Z92.21 Personal history of antineoplastic chemotherapy; Z96.619 Presence of unspecified artificial shoulder joint; F41.9 Anxiety disorder, unspecified; G62.9 Polyneuropathy, unspecified; I47.1 Supraventricular tachycardia; I82.611 Acute embolism and thrombosis of superficial veins of right upper extremity; I89.0 Lymphedema, not elsewhere classified; K82.9 Disease of gallbladder, unspecified; M19.90 Unspecified osteoarthritis, unspecified site; I95.9 Hypotension, unspecified; D72.829 Elevated white blood cell count, unspecified; E03.9 Hypothyroidism, unspecified; E05.90 Thyrotoxicosis, unspecified without thyrotoxic crisis or storm; E16.2 Hypoglycemia, unspecified; E83.51 Hypocalcemia; E87.2 Acidosis; E87.6 Hypokalemia; E88.09 Other disorders of plasma-protein metabolism, not elsewhere classified
CPT/HCPCS: 36415; 71045; 80048; 80053; 81003; 82803; 82948; 83735; 83880; 84145; 84443; 84484; 85025; 85027; 85378; 87040; 87086; 93005; 94640; 96365; 96375; 99285; G0378; J1650; J2543; J2920; J2930; J7040

== ENCOUNTER 2018-03-10 13:16 | Inpatient (IN) | payer BC, MEDICARE ==
[2018-03-10 13:16] VITALS: BMI 26.5
[2018-03-10] MEDS ORDERED: Albuterol-Ipratrop 3 mg / 0.5 (3 ml) UD IH STA (13:33)
[2018-03-10] MEDS ORDERED: Albuterol-Ipratrop 3 mg / 0.5 (3 ml) UD INH STA ×2 (13:33→13:35)
--- NOTE | 2018-03-10 13:42 | ED PDOC ---
HPI: SOB/CHF/COPD Time Seen by Provider: 03/10/18 13:26 Chief Complaint (Nursing): Chest Pain Chief Complaint (Provider): Dyspnea History Per: Patient History/Exam Limitations: no limitations Onset/Duration Of Symptoms: Days (yesterday) Current Symptoms Are (Timing): Still Present Additional Complaint(s): Pt. states dyspnea since yesterday worsening today and got chest tightness today. No nausea, vomit, diarrhea, abd pain, dizziness, weakness, headaches. No numbness, tingles. States similar in the past. Uses oxygen at the intermediate. Was given asa, albuterol, and ntg 1 sl at the intermediate. Pt. given 1 albuterol and 1 duoneb in the ambulance. States asa and breathing tx is helping reduce her pain and dyspnea. No leg pain. States bruises on legs from staff moving her around. Past Medical History Reviewed: Nursing Documentation, Vital Signs Vital Signs: Last Vital Signs Temp 98.7 F 03/10/18 13:18 Pulse 146 H 03/10/18 13:18 Resp 20 03/10/18 13:18 BP 131/74 03/10/18 13:18 Pulse Ox 95 03/10/18 13:18 - Medical History PMH: Anemia, Anxiety, Arthritis, Asthma, Bronchitis, Cardia Arrhythmia, CHF (Diastolic), COPD, Fractures, Gall Bladder Disease, HTN, Hyperthyroidism, Hypothyroidism, Malignancy (breast CA), Osteoporosis, Pneumonia Denies: HIV, Chronic Kidney Disease - Surgical History Other surgeries: breat ca surgery - Family History Family History: States: Unknown Family Hx - Living Arrangements Living Arrangements: [facility] - Social History Current smoker - smoking cessation education provided: No Alcohol: None Drugs: Denies - Home Medications Home Medications: Ambulatory Orders Medication Instructions Recorded RX: Anastrozole [Arimidex 1 mg Tab] 1 mg PO DAILY #0 12/12/16 RX: Gabapentin [Neurontin] 600 mg PO Q8 11/10/17 RX: Aspirin [Aspirin Chewable] 81 mg PO DAILY chew 12/28/17 RX: Atorvastatin [Lipitor] 40 mg PO HS tab 12/28/17 RX: Furosemide [Lasix] 40 mg PO DAILY tab 12/28/17 RX: Cholestyramine (with Sugar) 4 gm PO DAILY 02/08/18 [Questran Packet] RX: Albuterol 0.083% [Albuterol 2.5 mg INH RQ4 PRN neb 02/14/18 0.083% Inhal Aby (2.5 mg/3 ml) UD] RX: Magnesium Oxide [Mag-Ox] 400 mg PO DAILY tab 02/14/18 RX: Potassium Chloride 40 meq PO BID #120 ml 02/14/18 RX: acetaZOLAMIDE [Diamox 250 mg 250 mg PO DAILY tab 02/14/18 Tab] RX: ALPRAZolam [Xanax] 0.25 mg PO HS 03/04/18 RX: Budesonide/Formoterol Fumarate 1 puff INH Q12 03/04/18 [Symbicort 160-4.5 Mcg Inhaler] RX: Cyclobenzaprine [Flexeril] 5 mg PO TID 03/04/18 RX: Spironolactone [Aldactone] 50 mg PO BID 03/04/18 RX: Ipratropium 0.02% [Atrovent] 0.5 mg IH RQ6 neb 03/06/18 Acetaminophen [Tylenol 325mg tab] 650 mg PO Q4 PRN 03/10/18 Epoetin Dhaval [Epogen] 10,000 unit SC MWF 03/10/18 Mag Hydrox/Aluminum Hyd/Simeth 30 ml PO Q4 PRN 03/10/18 [Maalox Advanced Suspension] Magnesium Hydroxide [Milk Of 30 ml PO DAILY PRN 03/10/18 Magnesia] Menthol/Zinc Oxide [Calmoseptine 1 appl TOP QSHIFT 03/10/18 Ointment] Mupirocin 2% Oint UD [Bactroban 1 appl TOP DAILY 03/10/18 Ointment] Nitroglycerin [Nitrostat] 0.4 mg SL Q5MIN PRN 03/10/18 RX: Acetaminophen [Tylenol 325mg 650 mg PO Q4 PRN 03/10/18 tab] RX: Acetylcysteine 20% 2 ml INH Q12 03/10/18 RX: Prednisone [Deltasone] 20 mg PO DAILY 03/10/18 RX: methIMAzole [Tapazole] 5 mg PO DAILY 03/10/18 - Allergies Allergies/Adverse Reactions: Allergies Allergy/AdvReac Type Severity Reaction Status Date / Time paper tape Allergy RASH Uncoded 03/04/18 14:20 Review of Systems ROS Statement: Except As Marked, All Systems Reviewed And Found Negative Cardiovascular: Positive for: Chest Pain Respiratory: Positive for: Shortness of Breath Physical Exam - Reviewed Nursing Documentation Reviewed: Yes Vital Signs Reviewed: Yes - Physical Exam Appears: Positive for: Uncomfortable Head Exam: Positive for: ATRAUMATIC, NORMAL INSPECTION, NORMOCEPHALIC Skin: Positive for: Normal Color, Warm, DRY Eye Exam: Positive for: EOMI, Normal appearance, PERRL ENT: Positive for: Normal ENT Inspection. Negative for: Nasal Congestion, Pharyngeal Erythema Neck: Positive for: Normal, Painless ROM, Supple Cardiovascular/Chest: Negative for: Regular Rate, Rhythm (tachy sinus) Respiratory: Positive for: Decreased Breath Sounds, Other (coarse b/l). Negative for: Accessory Muscle Use Gastrointestinal/Abdominal: Positive for: Soft. Negative for: Tenderness Back: Positive for: Normal Inspection. Negative for: L CVA Tenderness, R CVA Tenderness Extremity: Positive for: Normal ROM, Other (R arm with lymphadema from breast ca hx.). Negative for: Tenderness Neurologic/Psych: Positive for: Alert, Oriented. Negative for: Motor/Sensory Deficits - Laboratory Results Result Diagrams: 03/12/18 05:30 03/12/18 05:30 - ECG ECG: Positive for: Interpreted By Me, Viewed By Me ECG Rhythm: Positive for: Sinus Tachycardia O2 Sat by Pulse Oximetry: 95 Pulse Ox Interpretation: Normal (with oxygen) - Radiology X-Ray: Read By Radiologist X-Ray Interpretation: No Acute Disease - Progress ED Course And Treament: 1700: Central line put in due to access issues. Works well and no pneumothorax on x-ray. 1800: Spoke with Dr. Olsen who will admit. She will see pt. Pt. pain free. Feels better. Dr. Turcios spoke with Dr. Benz who wanted pt. to be admitted. Pt. wbc elevated like from chronic steroid use. Is afebrile. Dr. Olsen knows pt. well. Is on chronic oxygen. - Critical Care Total Time (In Min): 30 Documented Critical Care: Time excludes all time spent performint seperately billable procedures Disposition - Clinical Impression Clinical Impression: COPD exacerbation - Patient ED Disposition Is Patient to be Admitted: Yes Counseled Patient/Family Regarding: Studies Performed, Diagnosis - Disposition Disposition Time: 17:41 Condition: FAIR - Pt Status Changed To: Hospital Disposition Of: Inpatient - Admit Certification Admit to Inpatient:: After my assessment, the patient will require hospitalization for at least two midnights. This is because of the severity of symptoms shown, intensity of services needed, and/or the medical risk in this patient being treated as an outpatient. - POA Present On Arrival: None
[2018-03-10] MEDS ORDERED: Sodium Chloride 0.9% 500 ML IV ONE (13:45)
[2018-03-10 14:10] LABS: BASO # 0.1 K/uL (0.0-0.2); BASO % 0.3 % (0.0-2.0); EOS % 0.1 % (0.0-4.0); HEMOGLOBIN 11.2 g/dL (12.0-16.0); LYMPH # 1.2 K/uL (1.0-4.3); LYMPH % 5.6 % (20.0-40.0); MEAN CELL VOLUME 86.6 fl (81.0-99.0); MEAN CORPUSCULAR HEMOGLOBIN 25.4 pg (27.0-31.0); MEAN CORPUSCULAR HGB CONC 29.3 g/dL (33.0-37.0); MEAN PLATELET VOLUME 7.7 fl (7.2-11.7); MONO # 0.7 K/uL (0.0-0.8); MONO % 3.5 % (0.0-10.0); NEUT % 90.5 % (50.0-75.0); NRBC % 0.3 % (0.0-0.0); PLATELET COUNT 459 K/uL (130-400); RBC 4.41 Mil/uL (3.80-5.20); RED CELL DISTRIBUTION WIDTH 23.5 % (11.5-14.5)
[2018-03-10 14:15] LABS: INR 1.1; PROTHROMBIN TIME 12.3 Seconds (9.8-13.1)
[2018-03-10 14:18] LABS: PARTIAL THROMBOPLASTIN TIME 23.3 Seconds (25.6-37.1)
[2018-03-10 15:02] LABS: ABG ALLEN TEST YES; ARTERIAL BLOOD GAS O2 SAT 96.5 % (95-98); ARTERIAL BLOOD GAS PCO2 38 mm/Hg (35-45); ARTERIAL BLOOD GAS PH 7.38 (7.35-7.45); ARTERIAL BLOOD GAS PO2 65 mm/Hg (80-100); ARTERIAL BLOOD GAS TCO2 23.7 mmol/L (22-28)
--- NOTE | 2018-03-10 15:07 | RAD ---
Date of service: 03/10/2018 HISTORY: Sepsis Patient COMPARISON: Portable chest 03/04/2018. FINDINGS: LUNGS: No active pulmonary disease. Right apical hyperlucency reiterated. PLEURA: No significant pleural effusion identified, no pneumothorax apparent. CARDIOVASCULAR: Calcific atherosclerotic changes are seen related to the thoracic aorta. Normal cardiac size. No pulmonary vascular congestion. OSSEOUS STRUCTURES: Prior ostectomy proximal right humerus reiterated as well as inferior cervical spinal fusion. VISUALIZED UPPER ABDOMEN: Normal. OTHER FINDINGS: None. IMPRESSION: No interval acute cardiopulmonary disease appreciated.
[2018-03-10 15:09] LABS: ANISOCYTOSIS MODERATE; LYMPHOCYTE 9 % (20-50); MICROCYTOSIS SLIGHT; MONOCYTE 2 % (0-10); NEUTROPHIL 89 % (42-75); PLATELET ESTIMATE NORMAL (NORMAL); POIKILOCYTOSIS SLIGHT; TOTAL CELLS COUNTED 100
[2018-03-10 15:10] LABS: HYPOCHROMIC SLIGHT; LARGE PLATELETS PRESENT; OVALOCYTES MODERATE; SPHEROCYTES SLIGHT; TEARDROP CELLS SLIGHT
--- NOTE | 2018-03-10 17:20 | PCM.PROC ---
Procedures Attestation:: I certify that I have explained the specified Operation(s) or Procedure(s), risks, benefits and reasonable alternatives to the Patient and/or other person responsible. The opportunity was given to ask questions and all questions answered - Central Line Placement Right Internal Jugular Triple Lumen Catheter Aseptic technique was employed throughout the procedure: Hand Hygiene done prior to procedure, Full sterile barriers (mask, hair cover, sterile gown, sterile gloves), Full body sterile drape, Chloraprep Antiseptic: 30 second prep for IJ or SC sites CVP Time Out Performed: Yes Pt. Placed on Pulse Ox Monitor: Yes Central Line Prep: Chlorhexidine-Alcohol Combination Local Anesthesia Used: Lidocaine 1% Amount of Anesthesia Used (mls): 2 Ultrasound Used for Placement: Yes Central Line Lumen Inserted: triple Post Procedure: Sutured in Place, Good Blood Return, All Ports Aspirated, Flushed, Capped, Sterile Dressing Applied Secured by: Suture Post procedure dressing: Clear vapor permeable, Chlorhexidine disc (Biopatch) Post Procedure X-Ray: Yes Patient Tolerated Procedure: Well, No Complications Immediate Complications: None
[2018-03-10 17:24] LABS: B-TYPE NATRIURETIC PEPTIDE 9820 pg/ml (0-900)
[2018-03-10 17:47] LABS: ALB/GLOB RATIO 0.7 (1.0-2.1); ALBUMIN 2.2 g/dL (3.5-5.0); ALT/SGPT 66 U/L (9-52); AST/SGOT 86 U/L (14-36); BLOOD UREA NITROGEN 9 mg/dl (7-17); CALCIUM 7.8 mg/dL (8.4-10.2); GFR NON-AFRICAN AMERICAN > 60
[2018-03-10] MEDS ORDERED: Dextrose 50% SYRINGE Inj (50 ml) IVP ONE (17:51)
[2018-03-10] MEDS ORDERED: Insulin Regular 100 units/ml IV STA (17:51)
[2018-03-10] MEDS ORDERED: Calcium Gluconate 4.65 mEq/10 ml Inj IV ONE (17:55)
--- NOTE | 2018-03-10 18:04 | RAD ---
Date of service: 03/10/2018 HISTORY: Dyspnea COMPARISON: 03/04/2018 and March 10, 2018. FINDINGS: LUNGS: Increasing consolidative changes right lower lobe perhaps an early pneumonia. PLEURA: No significant pleural effusion identified, no pneumothorax apparent. CARDIOVASCULAR: No radiographic findings to suggest acute or significant cardiovascular disease. Atherosclerotic calcifications identified primarily aortic arch. Venous access catheter in satisfactory position. OSSEOUS STRUCTURES: Unchanged. VISUALIZED UPPER ABDOMEN: Normal. OTHER FINDINGS: None. IMPRESSION: New right lower lobe infiltrate suspicious for pneumonia. Satisfactory position of recently placed venous access catheter right internal jugular approach. No pneumothorax.
[2018-03-10] MEDS ORDERED: Dextrose 50% SYRINGE Inj (50 ml) ONE (18:07)
[2018-03-10] MEDS ORDERED: Insulin Regular 100 units/ml ONE (18:07)
[2018-03-10] MEDS ORDERED: Calcium Gluconate 4.6 MEQ in Sodium Chloride 0.9% 100 ML IV ONE (18:15)
--- NOTE | 2018-03-10 19:02 | CP.PCM.HP ---
History of Present Illness - History of Present Illness History of Present Illness: 67 YO Female with PMHx of COPD, sys/leigh CHF, HTN, hyperthyroidism, hx breast CA and multiple other co-morbidities [facility] evaluation and treatment of chest tightness and shortness of breath. Pt states that she was at her normal state of health until she started feeling chest tightness. Pt reports chronic non-productive cough, no fevers or chills. Patient denies palpitations, n/v/d/c, abdominal pain, dysuria, fever and chills. Patient was given asa, albuterol, and nitroglyc 1 sl at the [facility] with out any improvement, s/p 1 albuterol and 1 duoneb in the ambulance. reported improved chest tightness after the treatments, denies any dizziness, abdominal pain, palpitations, urinary symptoms/dysuria or weakness. PMD: Dr. Benz PMHx: Chronic Respiratory Failure , CHF (systolic+diastolic), COPD, bilateral metastatic breast CA to shoulder s/p chemo-XRT 8 years ago (s/p humerus resection) with chronic lymphedema RUE, HTN, hyperthyroidism, anemia of chronic disease, SVT, osteoporosis, R cephalic vein thrombosis, peripheral neuropathy, anxiety SurgHx: bilateral mastectomies R 1998/L 2008, total shoulder replacement (2003) + removal (2013), cervical and lumbar fusions 2007, cholecystectomy, tubal lig ation, groin cyst removal; trach placed 07/2016, removed 11/04/16 Family Hx: Family history of cancer including ovarian, colon, breast, pancreatic and lung cancer Social Hx: lives in [facility] for [facility], quit smoking 2 years ago. Used smoke PPD X 50 yrs, no current EtOH Allergies: NKDA Code: DNR/DNI ED Course 98.7tm, 146HR, 20RR, 131/74, Spo2 95 CBC: wbc 21, h/h stable CMP: significant for K+ 5.8, chlo 109, Co2 21, mildly low ca and phos, ast/alt/alkp 86/66/232, probmp 9820 Pending Bcx EKG: Sinus tachy, possible infarct CXR: No acute changes S/p Triple lumen S/p Duoneb, Solumed 150, Cagluc, insulin Present on Admission - Present on Admission Any Indicators Present on Admission: No History of DVT/PE: No Past Patient History - Infectious Disease Hx of Infectious Diseases: None - Tetanus Immunizations Tetanus Immunization: Unknown - Past Medical History & Family History Past Medical History?: Yes - Past Social History Alcohol: None Drugs: Denies - CARDIAC Hx Cardia Arrhythmia: Yes Hx Congestive Heart Failure: Yes (Diastolic) Hx Hypertension: Yes - PULMONARY Hx Asthma: Yes Hx Bronchitis: Yes Hx Chronic Obstructive Pulmonary Disease (COPD): Yes Hx Pneumonia: Yes - NEUROLOGICAL Hx Neurological Disorder: Yes Other/Comment: Peripheral neuropathy - HEENT Hx HEENT Problems: Yes Other/Comment: Buccal abscess/osteo of mandible - RENAL Hx Chronic Kidney Disease: No - ENDOCRINE/METABOLIC Hx Hyperthyroidism: Yes Hx Hypothyroidism: Yes - HEMATOLOGICAL/ONCOLOGICAL Hx Anemia: Yes Hx Human Immunodeficiency Virus (HIV): No - INTEGUMENTARY Hx Dermatological Problems: Yes Hx Cellulitis: Yes (recurring RUE) Other/Comment: Chronic lymphedema right upper extremity - MUSCULOSKELETAL/RHEUMATOLOGICAL Hx Arthritis: Yes Hx Fractures: Yes Hx Osteoporosis: Yes - GASTROINTESTINAL Hx Gall Bladder Disease: Yes - GENITOURINARY/GYNECOLOGICAL Hx Genitourinary Disorders: No - PSYCHIATRIC Hx Anxiety: Yes - SURGICAL HISTORY Hx Surgeries: Yes Hx Mastectomy: Yes (right in 1998; left in 2008) Hx Orthopedic Surgery: Yes (2003 rigtht shoulder prosthesis, removal of hardware 2013) Hx Tubal Ligation: Yes Other/Comment: shoulder and humerous replacement with joint space infection and eventual removal of hardware in right shoulder and chronic lymphedema of RUE, groin cyst removal, cervical spinal fusion 2007, lumbar spinal fusion 2007. Tracheostomy. - ANESTHESIA Hx Anesthesia: Yes Hx Anesthesia Reactions: No Hx Malignant Hyperthermia: No Meds Allergies/Adverse Reactions: Allergies Allergy/AdvReac Type Severity Reaction Status Date / Time paper tape Allergy RASH Uncoded 03/04/18 14:20 Physical Exam - Constitutional Additional comments: breathing heavily, on NC 4L - Head Exam Head Exam: NORMOCEPHALIC - Eye Exam Eye Exam: Normal appearance - ENT Exam ENT Exam: Mucous Membranes Moist - Respiratory Exam Additional comments: Prolonged Expiratory Phase, Wheezes (b/l, worse on expiration ), NORMAL BREATHING PATTERN. absent: Rales - Cardiovascular Exam Cardiovascular Exam: REGULAR RHYTHM, +S1, +S2 Additional comments: b/l radical breast surgery - GI/Abdominal Exam GI & Abdominal Exam: Soft. absent: Tenderness - Extremities Exam Additional comments: stasis changes noted, small abrasions, old noted Mild pedal edema, non-pitting RUE lymphoedema with skin changes-blue hue - Neurological Exam Neurological exam: Alert, CN II-XII Intact, Oriented x3 - Psychiatric Exam Psychiatric exam: Normal Affect - Skin Skin Exam: Pallor Results - Vital Signs Recent Vital Signs: Last Vital Signs Temp 98.4 F 03/10/18 18:45 Pulse 115 H 03/10/18 18:45 Resp 19 03/10/18 18:45 BP 110/51 L 03/10/18 18:45 Pulse Ox 95 03/10/18 19:00 - Labs Result Diagrams: 03/10/18 14:00 03/10/18 16:56 Labs: Laboratory Results - last 24 hr 03/10/18 03/10/18 03/10/18 13:42 14:00 14:00 WBC 21.0 H D RBC 4.41 Hgb 11.2 L Hct 38.2 MCV 86.6 MCH 25.4 L MCHC 29.3 L RDW 23.5 H Plt Count 459 H D MPV 7.7 Neut % (Auto) 90.5 H Lymph % (Auto) 5.6 L [place] % (Auto) 3.5 Eos % (Auto) 0.1 Baso % (Auto) 0.3 Neut # (Auto) 19.0 H Lymph # (Auto) 1.2 [place] # (Auto) 0.7 Eos # (Auto) 0.0 Baso # (Auto) 0.1 Neutrophils % (Manual) 89 H Lymphocytes % (Manual) 9 L Monocytes % (Manual) 2 Platelet Estimate Normal Large Platelets Present Hypochromasia (manual) Slight Poikilocytosis (manual Slight Anisocytosis (manual) Moderate Microcytosis (manual) Slight Macrocytosis (manual) Slight Spherocytes Slight Tear Drop Cells Slight Ovalocytes Moderate PT 12.3 INR 1.1 APTT 23.3 L pCO2 38 pO2 65 L HCO3 23.0 ABG pH 7.38 ABG Total CO2 23.7 ABG O2 Saturation 96.5 ABG Base Excess -2.3 L Tawanda Test Yes ABG Potassium 6.2 H* A-a O2 Difference 173.0 Sodium 133.0 Chloride 108.0 H Glucose 122 H Lactate 1.1 FiO2 40.0 Pressure Support 5 Inspiratory BiPAP 10 Crit Value Called To Dr bri tellez Crit Value Called By 15 Crit Value Read Back Y Blood Gas Notified Time 1502 Potassium Carbon Dioxide Anion Gap BUN Creatinine Est GFR ( Amer) Est GFR (Non-Af Amer) Random Glucose Calcium Phosphorus Magnesium Total Bilirubin AST ALT Alkaline Phosphatase Troponin I NT-Pro-B Natriuret Pep Total Protein Albumin Globulin Albumin/Globulin Ratio Arterial Blood Potassium 6.2 H* 03/10/18 16:56 WBC RBC Hgb Hct MCV MCH MCHC RDW Plt Count MPV Neut % (Auto) Lymph % (Auto) [place] % (Auto) Eos % (Auto) Baso % (Auto) Neut # (Auto) Lymph # (Auto) [place] # (Auto) Eos # (Auto) Baso # (Auto) Neutrophils % (Manual) Lymphocytes % (Manual) Monocytes % (Manual) Platelet Estimate Large Platelets Hypochromasia (manual) Poikilocytosis (manual Anisocytosis (manual) Microcytosis (manual) Macrocytosis (manual) Spherocytes Tear Drop Cells Ovalocytes PT INR APTT pCO2 pO2 HCO3 ABG pH ABG Total CO2 ABG O2 Saturation ABG Base Excess [place] Test ABG Potassium A-a O2 Difference Sodium 137 Chloride 109 H Glucose Lactate FiO2 Pressure Support Inspiratory BiPAP Crit Value Called To Crit Value Called By Crit Value Read Back Blood Gas Notified Time Potassium 5.8 H Carbon Dioxide 21 L Anion Gap 13 BUN 9 Creatinine 0.7 Est GFR ( Amer) > 60 Est GFR (Non-Af Amer) > 60 Random Glucose 138 H Calcium 7.8 L Phosphorus 2.3 L Magnesium 1.9 Total Bilirubin 0.3 AST 86 H ALT 66 H D Alkaline Phosphatase 232 H Troponin I < 0.0120 NT-Pro-B Natriuret Pep 9820 H Total Protein 5.4 L Albumin 2.2 L Globulin 3.2 Albumin/Globulin Ratio 0.7 L Arterial Blood Potassium Assessment & Plan - Assessment and Plan (Free Text) Assessment: 67 YO Female with PMHx of COPD, sys/leigh CHF, HTN, hyperthyroidism, hx breast CA and multiple other co-morbidities is admitted for COPD exacerbation and chest tightness. COPD exacerbation -acute on chronic -Repat CXR: RLL infiltrate -cont O2 via NC 4L (No BIPAP; hypotension) -start Xopenex, albuterol, atrovent and methylpredisone 40 Q12 -Pulmonary consult; Dr. Benz, follow up recs -Follow up pro-calcitonin -Start Vanco 1gm IV Q6H Day #0 -Start Zosyn 3.375gm IV Q6H Day #0 Leukocytosis -likely 2/2 to COPD, steroid use, r/o infections -afebrile -Repat CXR: RLL infiltrate -follow up bcx, ucx, UA and pro-calcitonin -Start Vanco 1gm IV Q6H Day #0 -Start Zosyn 3.375gm IV Q6H Day #0 CHF exacerbation, elevated pro-BNP -acute on chronic -Echo 11/2017: EF 60-65% -will hold fluids, hold diuretics due to low BP Hyperkalemia - Hold home KCL - S/p Calgluc - Monitor AM labs Hypotensive -chronic -cont with home meds Normocytic anemia -chronic, stable Hyperthyroidism -chronic, controlled -c/w home meds Brest CA -chronic -c/w home meds DVT Prophlx -Lovenox Sc
[2018-03-10] MEDS ORDERED: Alum-Mag Hydrox-Simethicone Susp (30 mL) PO PRN (20:31)
[2018-03-10] MEDS ORDERED: Magnesium Hydroxide Susp 30 ml UD PO PRN (20:31)
[2018-03-10] MEDS ORDERED: Albuterol 0.083% Inhal Sol (2.5 mg/3 mL) UD INH PRN (20:31)
[2018-03-10] MEDS ORDERED: MENTHOL TOP SCH (20:45)
[2018-03-10] MEDS ORDERED: ZINC OXIDE TOP SCH (20:45)
[2018-03-10] MEDS ORDERED: methylPREDNISolone 40 MG in Sodium Chloride 0.9% 50 ML IV SCH (21:00)
[2018-03-10] MEDS: Ipratropium 0.02% Inhal Soln (0.5 mg/2.5 ml) UD IH SCH (21:55)
[2018-03-10] MEDS: Acetylcysteine 20% Inhal Soln (4ml) INH SCH (21:55)
[2018-03-10] MEDS: MethylPREDNISolone 40 mg Vial IVP SCH (22:40)
[2018-03-11] MEDS: Ipratropium 0.02% Inhal Soln (0.5 mg/2.5 ml) UD IH SCH ×2 (01:01→07:25)
[2018-03-11] MEDS: Piperacillin/Tazobact 3.375 GM in Sodium Chloride 0.9% 100 ML IVPB SCH ×5 (01:35→22:59)
[2018-03-11 06:57] LABS: BASO % 0.1 % (0.0-2.0); LYMPH # 0.2 K/uL (1.0-4.3); LYMPH % 1.9 % (20.0-40.0); MEAN CELL VOLUME 87.8 fl (81.0-99.0); MEAN CORPUSCULAR HEMOGLOBIN 25.8 pg (27.0-31.0); MEAN CORPUSCULAR HGB CONC 29.4 g/dL (33.0-37.0); MEAN PLATELET VOLUME 7.5 fl (7.2-11.7); MONO # 0.1 K/uL (0.0-0.8); MONO % 0.8 % (0.0-10.0); NEUT # 10.8 K/uL (1.8-7.0); NEUT % 97.2 % (50.0-75.0); NRBC % 0.2 % (0.0-0.0); PLATELET COUNT 390 K/uL (130-400); RBC 3.87 Mil/uL (3.80-5.20); RED CELL DISTRIBUTION WIDTH 24.8 % (11.5-14.5); WHITE BLOOD COUNT 11.2 K/uL (4.8-10.8)
[2018-03-11] MEDS: Acetylcysteine 20% Inhal Soln (4ml) INH SCH ×2 (07:24→19:45)
[2018-03-11 07:29] LABS: ALB/GLOB RATIO 0.7 (1.0-2.1); ALBUMIN 2.3 g/dL (3.5-5.0); ALT/SGPT 52 U/L (9-52); AST/SGOT 64 U/L (14-36); BLOOD UREA NITROGEN 8 mg/dl (7-17); CALCIUM 8.2 mg/dL (8.4-10.2); GFR NON-AFRICAN AMERICAN > 60
--- NOTE | 2018-03-11 08:56 | CARD ---
APPROVED REPORT Date of service: 03/10/2018 EKG Measurement Heart [id number] <Conclusion> Sinus tachycardia Nonspecific T wave changes Abnormal Electrocardiogram
--- NOTE | 2018-03-11 08:57 | CP.PCM.PN ---
<Andrea Huynh - Last Filed: 03/11/18 09:19> Subjective - Date & Time of Evaluation Date of Evaluation: 03/11/18 Time of Evaluation: 08:57 - Subjective Subjective: pt seen and evaluated at bedside. No acute events overnight. Slept well. Reports improvement in SOB. Afebrile. Denies pain. No other complaints/concerns. Denies chills, night sweats, CP/SOB/Palpitations, N/V/D/C, weakness/numbness. BP improving, POX ~94% on 2L NC. Objective - Vital Signs/Intake and Output Vital Signs (last 24 hours): Temp Pulse Resp BP Pulse Ox 98.2 F 100 H 18 124/76 97 03/11/18 08:23 03/11/18 08:23 03/11/18 08:23 03/11/18 08:23 03/11/18 08:23 - Medications Medications: Current Medications Acetaminophen (Tylenol 325mg Tab) 650 mg PO Q4 PRN PRN Reason: Pain, Mild (1-3) Acetazolamide (Diamox 250 Mg Tab) 250 mg PO DAILY [facility] Acetylcysteine (Acetylcysteine 20%) 2 ml INH Q12 ANDRE[facility] Last Admin: 03/11/18 07:24 Dose: 2 ml Al Hydrox/Mg Hydrox/Simethicone (Maalox Plus 30 Ml) 30 ml PO Q4 PRN PRN Reason: heartburn/indigestion Albuterol Sulfate (Albuterol 0.083% Inhal Aby (2.5 Mg/3 Ml) Ud) 2.5 mg INH RQ4 PRN PRN Reason: Shortness of Breath Last Admin: 03/11/18 01:01 Dose: 2.5 mg Alprazolam (Xanax) 0.25 mg PO HS ANDREAS Stop: 03/17/18 22:01 Last Admin: 03/10/18 22:42 Dose: 0.25 mg Anastrozole (Arimidex 1 Mg Tab) 1 mg PO DAILY [facility] Aspirin (Aspirin Chewable) 81 mg PO DAILY [facility] Atorvastatin Calcium (Lipitor) 40 mg PO HS [facility] Last Admin: 03/10/18 22:42 Dose: 40 mg Cyclobenzaprine HCl (Flexeril) 5 mg PO TID [facility] Enoxaparin Sodium (Lovenox) 40 mg SC DAILY [facility]; Protocol Epoetin Dhaval (Procrit) 10,000 unit SC MWF [facility] Furosemide (Lasix) 40 mg PO DAILY [facility] Gabapentin (Neurontin) 600 mg PO Q8 [facility] Last Admin: 03/11/18 01:35 Dose: 600 mg Piperacillin Sod/Tazobactam (Sod 3.375 gm/ Sodium Chloride) 100 mls @ 100 mls/hr IVPB Q6 [facility]; Protocol Last Admin: 03/11/18 03:38 Dose: 100 mls/hr Vancomycin HCl 1 gm/ Sodium (Chloride) 250 mls @ 250 mls/hr IVPB Q12H [facility]; Protocol Last Admin: 03/10/18 22:42 Dose: 250 mls/hr Ipratropium [place] (Atrovent) 0.5 mg IH RQ6 [facility] Last Admin: 03/11/18 07:25 Dose: 0.5 mg Magnesium Hydroxide (Milk Of Magnesia) 30 ml PO DAILY PRN PRN Reason: No bowel movement x 3 days Magnesium Oxide (Mag-Ox) 400 mg PO DAILY [facility] Methimazole (Tapazole) 5 mg PO DAILY [facility] Methylprednisolone (Solu-Medrol) 40 mg IVP Q12 [facility] Last Admin: 03/10/18 22:40 Dose: 40 mg Mupirocin (Bactroban Ointment) 1 applic TOP DAILY [facility] Nitroglycerin (Nitrostat Sl Tab) 0.4 mg SL Q5MIN PRN PRN Reason: chest pain Fluticasone/Salmeterol (Advair Diskus 250/50) 1 puff INH Q12 [facility] - Labs Labs: 03/11/18 06:09 03/11/18 06:09 PT 12.3 Seconds (9.8-13.1) 03/10/18 14:00 INR 1.1 03/10/18 14:00 APTT 23.3 Seconds (25.6-37.1) L 03/10/18 14:00 - Constitutional Appears: Non-toxic, No Acute Distress, Other (comfortable, on 2L NC ) - Eye Exam Eye Exam: EOMI Pupil Exam: PERRL - ENT Exam ENT Exam: Mucous Membranes Moist - Neck Exam Additional comments: Right Internal Jugular TLC. - Respiratory Exam Respiratory Exam: Clear to Ausculation Bilateral, NORMAL BREATHING PATTERN. absent: Decreased Breath Sounds, Rales, Rhonchi, Wheezes Additional comments: good air entry b/l, episodic dry cough during exam - Cardiovascular Exam Cardiovascular Exam: Tachycardia, REGULAR RHYTHM, +S1, +S2. absent: JVD, Murmur - GI/Abdominal Exam GI & Abdominal Exam: Soft, Normal Bowel Sounds. absent: Tenderness - Extremities Exam Extremities Exam: Normal Capillary Refill. absent: Calf Tenderness, Pedal Edema Additional comments: right UE: chronic lymphadema changes left UE: unremarkbale no pedal edema, b/l hyperpigementation changes in both LEs. - Neurological Exam Neurological Exam: Alert, Awake - Psychiatric Exam Psychiatric exam: Normal Affect, Normal Mood - Skin Skin Exam: Dry, Intact, Pallor Assessment and Plan - Assessment and Plan (Free Text) Assessment: 67 y/o female with PMHx remarkable for COPD, sys/leigh CHF, HTN, hyperthyroidism, hx breast CA and multiple other co-morbidities is admitted for COPD exacerbation secondary to RLL Pneumonia and suspected CHF exacerbation. Plan: 1) Acute COPD exacerbation -likely 2/2 to RLL pneumonia -CXR: new RLL infiltrate -cont O2 via NC 4L (No BIPAP; hypotension) -c/w Xopenex, atrovent and methylpredisone 40 Q12 -Pulmonary consult; Dr. Benz, follow up recs -procalcitonin: pending -c/w Vanco 1gm IV Q6H Day #2 -c/w Zosyn 3.375gm IV Q6H Day #2 2) Right Lower Lobe Pneumonia -afebrile -leukocytosis trending down -on IV ABx x2 (Vanco/Zosyn) -pulmonology consult pending, follow up recs 3) Leukocytosis -improving -down to 11.5 from >21 -follow up bcx, ucx, UA and procalcitonin -c/w Vanco 1gm IV Q6H Day #2 -c/w Zosyn 3.375gm IV Q6H Day #2 4) Acute on Chronic CHF exacerbation with Systolic/Diastolic Dysfunction -Echo 11/2017: EF 60-65% -NT-P-BNP: 9870 (elevated compared to prior) -CXR: RLL infilatrate, no congestion -troponin negative x2 -monitor BP -monitor I/Os and daily weights 5) Hyperkalemia -resolved -S/p calcium gluconate -monitor 6) Transaminemia -improving -monitor with metabolic panels 7) Normocytic anemia -chronic, stable -c/w with home EPO -monitor 8) Hyperthyroidism -chronic, controlled -c/w home meds 9) Hx of Breast Cancer -chronic -c/w home meds 10) DVT PPx -Lovenox 40 SC QD 11) Foreign Bodies: -R. IJ TLC 12) Code Status: -DNR/DNI <TonUrsulaGeorgiaradha Vences - Last Filed: 03/11/18 16:05> Objective - Vital Signs/Intake and Output Vital Signs (last 24 hours): Temp Pulse Resp BP Pulse Ox 99.0 F 109 H 20 98/51 L 94 L 03/11/18 15:51 03/11/18 15:51 03/11/18 15:51 03/11/18 15:51 03/11/18 15:51 - Medications Medications: Current Medications Acetaminophen (Tylenol 325mg Tab) 650 mg PO Q4 PRN PRN Reason: Pain, Mild (1-3) Acetazolamide (Diamox 250 Mg Tab) 250 mg PO DAILY [facility] Acetylcysteine (Acetylcysteine 20%) 2 ml INH RBID ANDREAS Al Hydrox/Mg Hydrox/Simethicone (Maalox Plus 30 Ml) 30 ml PO Q4 PRN PRN Reason: heartburn/indigestion Albuterol Sulfate (Albuterol 0.083% Inhal Aby (2.5 Mg/3 Ml) Ud) 2.5 mg INH RQ4 PRN PRN Reason: Shortness of Breath Last Admin: 03/11/18 01:01 Dose: 2.5 mg Albuterol/Ipratropium (Duoneb 3 Mg/0.5 Mg (3 Ml) Ud) 3 ml INH RQID [facility] Last Admin: 03/11/18 15:01 Dose: 3 ml Alprazolam (Xanax) 0.25 mg PO HS [facility] Stop: 03/17/18 22:01 Last Admin: 03/11/18 11:19 Dose: 0.25 mg Anastrozole (Arimidex 1 Mg Tab) 1 mg PO DAILY [facility] Last Admin: 03/11/18 09:22 Dose: 1 mg Aspirin (Aspirin Chewable) 81 mg PO DAILY [facility] Last Admin: 03/11/18 09:23 Dose: 81 mg Atorvastatin Calcium (Lipitor) 40 mg PO HS [facility] Last Admin: 03/10/18 22:42 Dose: 40 mg Cyclobenzaprine HCl (Flexeril) 5 mg PO TID [facility] Last Admin: 03/11/18 14:51 Dose: Not Given Enoxaparin Sodium (Lovenox) 40 mg SC DAILY [facility]; Protocol Last Admin: 03/11/18 09:26 Dose: 40 mg Epoetin Dhaval (Procrit) 10,000 unit SC MWF [facility] Furosemide (Lasix) 40 mg PO DAILY [facility] Gabapentin (Neurontin) 600 mg PO Q8 [facility] Last Admin: 03/11/18 09:27 Dose: 600 mg Piperacillin Sod/Tazobactam (Sod 3.375 gm/ Sodium Chloride) 100 mls @ 100 mls/hr IVPB Q6 [facility]; Protocol Last Admin: 03/11/18 15:24 Dose: 100 mls/hr Vancomycin HCl 1 gm/ Sodium (Chloride) 250 mls @ 250 mls/hr IVPB Q12H [facility]; Protocol Last Admin: 03/11/18 10:43 Dose: 250 mls/hr Magnesium Hydroxide (Milk Of Magnesia) 30 ml PO DAILY PRN PRN Reason: No bowel movement x 3 days Magnesium Oxide (Mag-Ox) 400 mg PO DAILY [facility] Last Admin: 03/11/18 09:26 Dose: 400 mg Methimazole (Tapazole) 5 mg PO DAILY [facility] Last Admin: 03/11/18 09:29 Dose: 5 mg Methylprednisolone (Solu-Medrol) 30 mg IVP Q12H [facility] Last Admin: 03/11/18 15:15 Dose: 30 mg Mupirocin (Bactroban Ointment) 1 applic TOP DAILY [facility] Last Admin: 03/11/18 09:24 Dose: 1 applic Nitroglycerin (Nitrostat Sl Tab) 0.4 mg SL Q5MIN PRN PRN Reason: chest pain - Labs Labs: 03/11/18 06:09 03/11/18 06:09 PT 12.3 Seconds (9.8-13.1) 03/10/18 14:00 INR 1.1 03/10/18 14:00 APTT 23.3 Seconds (25.6-37.1) L 03/10/18 14:00 Attending/Attestation - Attestation I have personally seen and examined this patient.: Yes I have fully participated in the care of the patient.: Yes I have reviewed all pertinent clinical information, including history, physical exam and plan: Yes
[2018-03-11] MEDS ORDERED: Fluticasone-Salmeterol 250-50mcg Diskus INH SCH (09:00)
[2018-03-11] MEDS: Enoxaparin 40 mg Syringe SC SCH (09:26)
[2018-03-11] MEDS: Magnesium Oxide 400 mg Tab UD PO SCH (09:26)
[2018-03-11] MEDS: MethylPREDNISolone 40 mg Vial IVP SCH ×2 (09:28→15:15)
[2018-03-11] MEDS: methIMAzole 5 MG TAB PO SCH (09:29)
[2018-03-11 09:58] LABS: ANISOCYTOSIS SLIGHT; LYMPHOCYTE 4 % (20-50); MONOCYTE 2 % (0-10); NEUTROPHIL 94 % (42-75); PLATELET ESTIMATE NORMAL (NORMAL); TOTAL CELLS COUNTED 100
[2018-03-11 09:59] LABS: LARGE PLATELETS PRESENT; OVALOCYTES MODERATE; POIKILOCYTOSIS SLIGHT; TEARDROP CELLS SLIGHT
--- NOTE | 2018-03-11 13:25 | CP.PCM.CON ---
History of Present Illness - History of Present Illness History of Present Illness: This 67 year old female with significant COPD returned to the emergency room from [facility] because of chest pain, tachycardia and apparent chills. Her initial CXR did not reveal any infiltrate, but she did have leukocytosis of 21,000. She was empirically begun on antibiotic coverage with Zosym and Vancomycin at that time. A followup chest x-ray does show a new right lower lobe infiltrate. Her leukocytosis has dropped to 11 this morning. She does not complain of cough or change in sputum. Her chest discomfort has subsided and she has not experienced any more chills. She does complain of loss of appetite with early satiety and episodic nausea. At the time of admission she was found to be hyperkalemic with a chronically elevated alkaline phosphatase with normal isoenzyme distribution. Past Patient History - Infectious Disease Hx of Infectious Diseases: None - Tetanus Immunizations Tetanus Immunization: Unknown - Past Medical History & Family History Past Medical History?: Yes - Past Social History Smoking Status: Former Smoker - CARDIAC Hx Cardiac Disorders: Yes Hx Cardia Arrhythmia: Yes Hx Congestive Heart Failure: Yes (Diastolic) Hx Hypertension: Yes - PULMONARY Hx Respiratory Disorders: Yes Hx Asthma: Yes Hx Bronchitis: Yes Hx Chronic Obstructive Pulmonary Disease (COPD): Yes Hx Pneumonia: Yes - NEUROLOGICAL Hx Neurological Disorder: Yes Other/Comment: Peripheral neuropathy - HEENT Hx HEENT Problems: Yes Other/Comment: Buccal abscess/osteo of mandible - RENAL Hx Chronic Kidney Disease: No - ENDOCRINE/METABOLIC Hx Hyperthyroidism: Yes Hx Hypothyroidism: Yes - HEMATOLOGICAL/ONCOLOGICAL Hx Anemia: Yes Hx Human Immunodeficiency Virus (HIV): No - INTEGUMENTARY Hx Dermatological Problems: Yes Hx Cellulitis: Yes (recurring RUE) Other/Comment: Chronic lymphedema right upper extremity - MUSCULOSKELETAL/RHEUMATOLOGICAL Hx Arthritis: Yes Hx Falls: Yes Hx Fractures: Yes Hx Osteoporosis: Yes - GASTROINTESTINAL Hx Gall Bladder Disease: Yes - GENITOURINARY/GYNECOLOGICAL Hx Genitourinary Disorders: No - PSYCHIATRIC Hx Anxiety: Yes - SURGICAL HISTORY Hx Surgeries: Yes Hx Mastectomy: Yes (right in 1998; left in 2008) Hx Orthopedic Surgery: Yes (2003 rigtht shoulder prosthesis, removal of hardware 2013) Hx Tubal Ligation: Yes Other/Comment: shoulder and humerous replacement with joint space infection and eventual removal of hardware in right shoulder and chronic lymphedema of RUE, groin cyst removal, cervical spinal fusion 2007, lumbar spinal fusion 2007. Tracheostomy. - ANESTHESIA Hx Anesthesia: Yes Hx Anesthesia Reactions: No Hx Malignant Hyperthermia: No Meds Allergies/Adverse Reactions: Allergies Allergy/AdvReac Type Severity Reaction Status Date / Time paper tape Allergy RASH Uncoded 03/04/18 14:20 - Medications Medications: Current Medications Acetaminophen (Tylenol 325mg Tab) 650 mg PO Q4 PRN PRN Reason: Pain, Mild (1-3) Acetazolamide (Diamox 250 Mg Tab) 250 mg PO DAILY [facility] Acetylcysteine (Acetylcysteine 20%) 2 ml INH Q12 [facility] Last Admin: 03/11/18 07:24 Dose: 2 ml Al Hydrox/Mg Hydrox/Simethicone (Maalox Plus 30 Ml) 30 ml PO Q4 PRN PRN Reason: heartburn/indigestion Albuterol Sulfate (Albuterol 0.083% Inhal Aby (2.5 Mg/3 Ml) Ud) 2.5 mg INH RQ4 PRN PRN Reason: Shortness of Breath Last Admin: 03/11/18 01:01 Dose: 2.5 mg Alprazolam (Xanax) 0.25 mg PO HS [facility] Stop: 03/17/18 22:01 Last Admin: 03/11/18 11:19 Dose: 0.25 mg Anastrozole (Arimidex 1 Mg Tab) 1 mg PO DAILY [facility] Last Admin: 03/11/18 09:22 Dose: 1 mg Aspirin (Aspirin Chewable) 81 mg PO DAILY [facility] Last Admin: 03/11/18 09:23 Dose: 81 mg Atorvastatin Calcium (Lipitor) 40 mg PO HS [facility] Last Admin: 03/10/18 22:42 Dose: 40 mg Cyclobenzaprine HCl (Flexeril) 5 mg PO TID [facility] Last Admin: 03/11/18 09:25 Dose: 5 mg Enoxaparin Sodium (Lovenox) 40 mg SC DAILY [facility]; Protocol Last Admin: 03/11/18 09:26 Dose: 40 mg Epoetin Dhaval (Procrit) 10,000 unit SC MWF [facility] Furosemide (Lasix) 40 mg PO DAILY [facility] Gabapentin (Neurontin) 600 mg PO Q8 [facility] Last Admin: 03/11/18 09:27 Dose: 600 mg Piperacillin Sod/Tazobactam (Sod 3.375 gm/ Sodium Chloride) 100 mls @ 100 mls/hr IVPB Q6 [facility]; Protocol Last Admin: 03/11/18 09:31 Dose: 100 mls/hr Vancomycin HCl 1 gm/ Sodium (Chloride) 250 mls @ 250 mls/hr IVPB Q12H [facility]; Protocol Last Admin: 03/11/18 10:43 Dose: 250 mls/hr Ipratropium [place] (Atrovent) 0.5 mg IH RQ6 [facility] Last Admin: 03/11/18 07:25 Dose: 0.5 mg Magnesium Hydroxide (Milk Of Magnesia) 30 ml PO DAILY PRN PRN Reason: No bowel movement x 3 days Magnesium Oxide (Mag-Ox) 400 mg PO DAILY [facility] Last Admin: 03/11/18 09:26 Dose: 400 mg Methimazole (Tapazole) 5 mg PO DAILY [facility] Last Admin: 03/11/18 09:29 Dose: 5 mg Methylprednisolone (Solu-Medrol) 40 mg IVP Q12 [facility] Last Admin: 03/11/18 09:28 Dose: 40 mg Mupirocin (Bactroban Ointment) 1 applic TOP DAILY [facility] Last Admin: 03/11/18 09:24 Dose: 1 applic Nitroglycerin (Nitrostat Sl Tab) 0.4 mg SL Q5MIN PRN PRN Reason: chest pain Fluticasone/Salmeterol (Advair Diskus 250/50) 1 puff INH Q12 [facility] Results - Vital Signs Recent Vital Signs: Last Vital Signs Temp 97.9 F 03/11/18 12:29 Pulse 112 H 03/11/18 12:29 Resp 18 03/11/18 12:29 BP 110/59 L 03/11/18 12:29 Pulse Ox 93 L 03/11/18 12:29 - Labs Result Diagrams: 03/11/18 06:09 03/11/18 06:09 Labs: Laboratory Results - last 24 hr 03/10/18 03/10/18 03/10/18 13:42 14:00 14:00 WBC 21.0 H D RBC 4.41 Hgb 11.2 L Hct 38.2 MCV 86.6 MCH 25.4 L MCHC 29.3 L RDW 23.5 H Plt Count 459 H D MPV 7.7 Neut % (Auto) 90.5 H Lymph % (Auto) 5.6 L [place] % (Auto) 3.5 Eos % (Auto) 0.1 Baso % (Auto) 0.3 Neut # (Auto) 19.0 H Lymph # (Auto) 1.2 [place] # (Auto) 0.7 Eos # (Auto) 0.0 Baso # (Auto) 0.1 Neutrophils % (Manual) 89 H Lymphocytes % (Manual) 9 L Monocytes % (Manual) 2 Platelet Estimate Normal Large Platelets Present Hypochromasia (manual) Slight Poikilocytosis (manual Slight Anisocytosis (manual) Moderate Microcytosis (manual) Slight Macrocytosis (manual) Slight Spherocytes Slight Tear Drop Cells Slight Ovalocytes Moderate PT 12.3 INR 1.1 APTT 23.3 L pCO2 38 pO2 65 L HCO3 23.0 ABG pH 7.38 ABG Total CO2 23.7 ABG O2 Saturation 96.5 ABG Base Excess -2.3 L T[place]anda Test Yes ABG Potassium 6.2 H* A-a O2 Difference 173.0 Sodium 133.0 Chloride 108.0 H Glucose 122 H Lactate 1.1 FiO2 40.0 Pressure Support 5 Inspiratory BiPAP 10 Crit Value Called To Dr bri tellez Crit Value Called By 15 Crit Value Read Back Y Blood Gas Notified Time 1502 Potassium Carbon Dioxide Anion Gap BUN Creatinine Est GFR ( Amer) Est GFR (Non-Af Amer) POC Glucose (mg/dL) Random Glucose Calcium Phosphorus Magnesium Total Bilirubin AST ALT Alkaline Phosphatase Troponin I NT-Pro-B Natriuret Pep Total Protein Albumin Globulin Albumin/Globulin Ratio Arterial Blood Potassium 6.2 H* 03/10/18 03/11/18 03/11/18 16:56 05:50 06:09 WBC 11.2 H RBC 3.87 Hgb 10.0 L Hct 34.0 MCV 87.8 MCH 25.8 L MCHC 29.4 L RDW 24.8 H Plt Count 390 MPV 7.5 Neut % (Auto) 97.2 H Lymph % (Auto) 1.9 L [place] % (Auto) 0.8 Eos % (Auto) 0.0 Baso % (Auto) 0.1 Neut # (Auto) 10.8 H Lymph # (Auto) 0.2 L [place] # (Auto) 0.1 Eos # (Auto) 0.0 Baso # (Auto) 0.0 Neutrophils % (Manual) 94 H Lymphocytes % (Manual) 4 L Monocytes % (Manual) 2 Platelet Estimate Normal Large Platelets Present Hypochromasia (manual) Poikilocytosis (manual Slight Anisocytosis (manual) Slight Microcytosis (manual) Macrocytosis (manual) Slight Spherocytes Tear Drop Cells Slight Ovalocytes Moderate PT INR APTT pCO2 pO2 HCO3 ABG pH ABG Total CO2 ABG O2 Saturation ABG Base Excess T[place]anda Test ABG Potassium A-a O2 Difference Sodium 137 Chloride 109 H Glucose Lactate FiO2 Pressure Support Inspiratory BiPAP Crit Value Called To Crit Value Called By Crit Value Read Back Blood Gas Notified Time Potassium 5.8 H Carbon Dioxide 21 L Anion Gap 13 BUN 9 Creatinine 0.7 Est GFR ( Amer) > 60 Est GFR (Non-Af Amer) > 60 POC Glucose (mg/dL) 218 H Random Glucose 138 H Calcium 7.8 L Phosphorus 2.3 L Magnesium 1.9 Total Bilirubin 0.3 AST 86 H ALT 66 H D Alkaline Phosphatase 232 H Troponin I < 0.0120 NT-Pro-B Natriuret Pep 9820 H Total Protein 5.4 L Albumin 2.2 L Globulin 3.2 Albumin/Globulin Ratio 0.7 L Arterial Blood Potassium 03/11/18 03/11/18 03/11/18 06:09 06:09 11:28 WBC RBC Hgb Hct MCV MCH MCHC RDW Plt Count MPV Neut % (Auto) Lymph % (Auto) [place] % (Auto) Eos % (Auto) Baso % (Auto) Neut # (Auto) Lymph # (Auto) [place] # (Auto) Eos # (Auto) Baso # (Auto) Neutrophils % (Manual) Lymphocytes % (Manual) Monocytes % (Manual) Platelet Estimate Large Platelets Hypochromasia (manual) Poikilocytosis (manual Anisocytosis (manual) Microcytosis (manual) Macrocytosis (manual) Spherocytes Tear Drop Cells Ovalocytes PT INR APTT pCO2 pO2 HCO3 ABG pH ABG Total CO2 ABG O2 Saturation ABG Base Excess T[place]anda Test ABG Potassium A-a O2 Difference Sodium 139 Chloride 109 H Glucose Lactate FiO2 Pressure Support Inspiratory BiPAP Crit Value Called To Crit Value Called By Crit Value Read Back Blood Gas Notified Time Potassium 4.8 Carbon Dioxide 23 Anion Gap 12 BUN 8 Creatinine 0.8 Est GFR ( Amer) > 60 Est GFR (Non-Af Amer) > 60 POC Glucose (mg/dL) 201 H Random Glucose 161 H Calcium 8.2 L Phosphorus Magnesium Total Bilirubin 0.3 AST 64 H D ALT 52 D Alkaline Phosphatase 204 H Troponin I < 0.0120 NT-Pro-B Natriuret Pep Total Protein 5.6 L Albumin 2.3 L Globulin 3.3 Albumin/Globulin Ratio 0.7 L Arterial Blood Potassium Assessment & Plan (1) Pneumonia Status: Acute Priority: High (2) Moderate COPD (chronic obstructive pulmonary disease) Status: Chronic Priority: High (3) Chronic hypercapnic respiratory failure Status: Chronic Priority: High (4) Lymphedema of arm Status: Chronic Priority: Medium - Date & Time Date: 03/11/18 Time: 13:38
[2018-03-11] MEDS ORDERED: Sodium Chloride 3% for Inhalation 4 ML VIAL.NEB IH PRN (13:35)
[2018-03-11] MEDS: Albuterol-Ipratrop 3 mg / 0.5 (3 ml) UD INH SCH ×2 (15:01→19:45)
[2018-03-11] MEDS ORDERED: methylPREDNISolone 30 MG in Sodium Chloride 0.9% 50 ML IV SCH (21:00)
[2018-03-12] MEDS: MethylPREDNISolone 40 mg Vial IVP SCH ×2 (01:20→14:17)
[2018-03-12] MEDS: Piperacillin/Tazobact 3.375 GM in Sodium Chloride 0.9% 100 ML IVPB SCH ×4 (04:06→22:06)
[2018-03-12 06:42] LABS: BASO % 0.2 % (0.0-2.0); HEMOGLOBIN 9.2 g/dL (12.0-16.0); LYMPH # 0.2 K/uL (1.0-4.3); LYMPH % 2.2 % (20.0-40.0); MEAN CELL VOLUME 87.6 fl (81.0-99.0); MEAN CORPUSCULAR HEMOGLOBIN 25.8 pg (27.0-31.0); MEAN CORPUSCULAR HGB CONC 29.5 g/dL (33.0-37.0); MEAN PLATELET VOLUME 7.2 fl (7.2-11.7); MONO # 0.4 K/uL (0.0-0.8); MONO % 3.6 % (0.0-10.0); NEUT # 9.4 K/uL (1.8-7.0); NRBC % 0.1 % (0.0-0.0); PLATELET COUNT 396 K/uL (130-400); RBC 3.58 Mil/uL (3.80-5.20); RED CELL DISTRIBUTION WIDTH 24.4 % (11.5-14.5)
[2018-03-12 07:11] LABS: ALB/GLOB RATIO 0.7 (1.0-2.1); ALT/SGPT 64 U/L (9-52); AST/SGOT 77 U/L (14-36); BLOOD UREA NITROGEN 9 mg/dl (7-17); CALCIUM 7.5 mg/dL (8.4-10.2); GFR NON-AFRICAN AMERICAN > 60
[2018-03-12] MEDS: Acetylcysteine 20% Inhal Soln (4ml) INH SCH ×2 (08:11→19:09)
[2018-03-12] MEDS: Albuterol-Ipratrop 3 mg / 0.5 (3 ml) UD INH SCH ×3 (08:11→15:33)
[2018-03-12] MEDS: Enoxaparin 40 mg Syringe SC SCH (09:52)
[2018-03-12] MEDS: Magnesium Oxide 400 mg Tab UD PO SCH (09:53)
[2018-03-12] MEDS: methIMAzole 5 MG TAB PO SCH (09:54)
[2018-03-12 09:55] LABS: ANISOCYTOSIS SLIGHT; LYMPHOCYTE 4 % (20-50); MONOCYTE 3 % (0-10); NEUTROPHIL 93 % (42-75); PLATELET ESTIMATE NORMAL (NORMAL); POIKILOCYTOSIS SLIGHT; TOTAL CELLS COUNTED 100
[2018-03-12 09:56] LABS: HYPOCHROMIC MODERATE; LARGE PLATELETS PRESENT; OVALOCYTES SLIGHT; TEARDROP CELLS SLIGHT
--- NOTE | 2018-03-12 11:56 | CP.PCM.PN ---
<Andrea Huynh - Last Filed: 03/12/18 12:04> Subjective - Date & Time of Evaluation Date of Evaluation: 03/12/18 Time of Evaluation: 10:00 - Subjective Subjective: pt seen and evaluated at bedside. No acute events overnight. Afebrile. Pt reports improvement in chest pain. No new complaints/concerns. Hemodynamically stable, POX approx 94-96% on 2L NC. Tolerating PO intake. Denies fever/chills, headaches, changes in vision, CP/SOB/palpiations/N/V/D/C, urinary symptoms. Objective - Vital Signs/Intake and Output Vital Signs (last 24 hours): Temp Pulse Resp BP Pulse Ox 97.9 F 84 18 123/76 96 03/12/18 08:45 03/12/18 08:45 03/12/18 08:45 03/12/18 08:45 03/12/18 08:45 - Medications Medications: Current Medications Acetaminophen (Tylenol 325mg Tab) 650 mg PO Q4 PRN PRN Reason: Pain, Mild (1-3) Acetazolamide (Diamox 250 Mg Tab) 250 mg PO DAILY [facility] Acetylcysteine (Acetylcysteine 20%) 2 ml INH RBID [facility] Last Admin: 03/12/18 08:11 Dose: 2 ml Al Hydrox/Mg Hydrox/Simethicone (Maalox Plus 30 Ml) 30 ml PO Q4 PRN PRN Reason: heartburn/indigestion Albuterol Sulfate (Albuterol 0.083% Inhal Aby (2.5 Mg/3 Ml) Ud) 2.5 mg INH RQ4 PRN PRN Reason: Shortness of Breath Last Admin: 03/11/18 01:01 Dose: 2.5 mg Albuterol/Ipratropium (Duoneb 3 Mg/0.5 Mg (3 Ml) Ud) 3 ml INH RQID [facility] Last Admin: 03/12/18 11:24 Dose: 3 ml Alprazolam (Xanax) 0.25 mg PO Q12 [facility] Stop: 03/19/18 09:29 Last Admin: 03/12/18 09:47 Dose: 0.25 mg Anastrozole (Arimidex 1 Mg Tab) 1 mg PO DAILY [facility] Last Admin: 03/12/18 09:50 Dose: 1 mg Aspirin (Aspirin Chewable) 81 mg PO DAILY [facility] Last Admin: 03/12/18 09:51 Dose: 81 mg Atorvastatin Calcium (Lipitor) 40 mg PO HS [facility] Last Admin: 03/11/18 21:10 Dose: 40 mg Cyclobenzaprine HCl (Flexeril) 5 mg PO TID [facility] Last Admin: 03/11/18 14:51 Dose: Not Given Enoxaparin Sodium (Lovenox) 40 mg SC DAILY [facility]; Protocol Last Admin: 03/12/18 09:52 Dose: 40 mg Epoetin Dhaval (Procrit) 10,000 unit SC F [facility] Furosemide (Lasix) 40 mg PO DAILY [facility] Gabapentin (Neurontin) 600 mg PO Q8 [facility] Last Admin: 03/12/18 09:53 Dose: 600 mg Piperacillin Sod/Tazobactam (Sod 3.375 gm/ Sodium Chloride) 100 mls @ 100 mls/hr IVPB Q6 [facility]; Protocol Last Admin: 03/12/18 09:57 Dose: 100 mls/hr Vancomycin HCl 1 gm/ Sodium (Chloride) 250 mls @ 250 mls/hr IVPB Q12H [facility]; Protocol Last Admin: 03/11/18 20:36 Dose: 250 mls/hr Magnesium Hydroxide (Milk Of Magnesia) 30 ml PO DAILY PRN PRN Reason: No bowel movement x 3 days Magnesium Oxide (Mag-Ox) 400 mg PO DAILY [facility] Last Admin: 03/12/18 09:53 Dose: 400 mg Methimazole (Tapazole) 5 mg PO DAILY [facility] Last Admin: 03/12/18 09:54 Dose: 5 mg Methylprednisolone (Solu-Medrol) 30 mg IVP Q12H [facility] Last Admin: 03/12/18 01:20 EST Dose: 30 mg Mupirocin (Bactroban Ointment) 1 applic TOP DAILY [facility] Last Admin: 03/12/18 09:52 Dose: 1 applic Nitroglycerin (Nitrostat Sl Tab) 0.4 mg SL Q5MIN PRN PRN Reason: chest pain - Labs Labs: 03/12/18 05:30 03/12/18 05:30 PT 12.3 Seconds (9.8-13.1) 03/10/18 14:00 INR 1.1 03/10/18 14:00 APTT 23.3 Seconds (25.6-37.1) L 03/10/18 14:00 - Constitutional Appears: Non-toxic, No Acute Distress - Head Exam Head Exam: ATRAUMATIC, NORMOCEPHALIC - Eye Exam Eye Exam: EOMI, PERRL. absent: Nystagmus, Scleral icterus - Neck Exam Neck Exam: absent: Lymphadenopathy - Respiratory Exam Respiratory Exam: Clear to Ausculation Bilateral, NORMAL BREATHING PATTERN. absent: Accessory Muscle Use, Prolonged Expiratory Phase, Rales, Rhonchi, Wheezes, Respiratory Distress - Cardiovascular Exam Cardiovascular Exam: REGULAR RHYTHM, RRR, +S1, +S2. absent: Tachycardia, JVD, Rubs, Murmur - GI/Abdominal Exam GI & Abdominal Exam: Soft, Normal Bowel Sounds. absent: Tenderness - Extremities Exam Extremities Exam: absent: Pedal Edema Additional comments: RUE lymphadema, w/o acute change - Neurological Exam Neurological Exam: Alert, Awake, CN II-XII Intact - Psychiatric Exam Psychiatric exam: Normal Affect, Normal Mood Assessment and Plan - Assessment and Plan (Free Text) Assessment: 67 y/o female with PMHx remarkable for COPD, sys/leigh CHF, HTN, hyperthyroidism, hx breast CA and multiple other co-morbidities is admitted for RLL Pneumonia and suspected CHF exacerbation. Plan: 1) Right Lower Lobe Pneumonia -afebrile -leukocytosis resolved -pulmonology on board -preliminary blood cx: negative -c/w Vanco 1gm IV Q6H Day #3 -c/w Zosyn 3.375gm IV Q6H Day #3 2) Leukocytosis -resolved 3) COPD -CXR: new RLL infiltrate -cont O2 via NC, maintain POX ~92% -c/w Xopenex, atrovent and methylpredisone 40mg Q12 -Pulmonary consult; Dr. Benz -procalcitonin: pending 4) Acute on Chronic CHF exacerbation with Systolic/Diastolic Dysfunction -Echo 11/2017: EF 60-65% -NT-P-BNP: 9870 (elevated compared to prior) -c/w lasix 40mg PO BID, Acetazolamide -monitor BP -monitor I/Os and daily weights 5) Hyperkalemia -resolved 6) Transaminemia -chronic as per PMD -monitor 7) Normocytic anemia -chronic, stable -c/w with home EPO -monitor 8) Hyperthyroidism -chronic, controlled -c/w home meds 9) Hx of Breast Cancer -chronic -c/w home meds 10) DVT PPx -Lovenox 40 SC QD 11) Foreign Bodies: -R. IJ TLC 12) Code Status: -DNR/DNI <Georgia Camilo - Last Filed: 03/12/18 18:00> Objective - Vital Signs/Intake and Output Vital Signs (last 24 hours): Temp Pulse Resp BP Pulse Ox 98.3 F 117 H 18 95/53 L 95 03/12/18 15:57 03/12/18 15:57 03/12/18 15:57 03/12/18 15:57 03/12/18 17:41 - Medications Medications: Current Medications Acetaminophen (Tylenol 325mg Tab) 650 mg PO Q4 PRN PRN Reason: Pain, Mild (1-3) Acetazolamide (Diamox 250 Mg Tab) 250 mg PO DAILY [facility] Acetylcysteine (Acetylcysteine 20%) 2 ml INH RBID [facility] Last Admin: 03/12/18 08:11 Dose: 2 ml Al Hydrox/Mg Hydrox/Simethicone (Maalox Plus 30 Ml) 30 ml PO Q4 PRN PRN Reason: heartburn/indigestion Albuterol Sulfate (Albuterol 0.083% Inhal Aby (2.5 Mg/3 Ml) Ud) 2.5 mg INH RQ4 PRN PRN Reason: Shortness of Breath Last Admin: 03/11/18 01:01 Dose: 2.5 mg Alprazolam (Xanax) 0.25 mg PO Q12 [facility] Stop: 03/19/18 09:29 Last Admin: 03/12/18 09:47 Dose: 0.25 mg Anastrozole (Arimidex 1 Mg Tab) 1 mg PO DAILY [facility] Last Admin: 03/12/18 09:50 Dose: 1 mg Aspirin (Aspirin Chewable) 81 mg PO DAILY [facility] Last Admin: 03/12/18 09:51 Dose: 81 mg Atorvastatin Calcium (Lipitor) 40 mg PO HS [facility] Last Admin: 03/11/18 21:10 Dose: 40 mg Cyclobenzaprine HCl (Flexeril) 5 mg PO TID [facility] Last Admin: 03/11/18 14:51 Dose: Not Given Enoxaparin Sodium (Lovenox) 40 mg SC DAILY [facility]; Protocol Last Admin: 03/12/18 09:52 Dose: 40 mg Epoetin Dhaval (Procrit) 10,000 unit SC MWF [facility] Furosemide (Lasix) 40 mg PO DAILY [facility] Gabapentin (Neurontin) 600 mg PO Q8 [facility] Last Admin: 03/12/18 17:21 Dose: 600 mg Piperacillin Sod/Tazobactam (Sod 3.375 gm/ Sodium Chloride) 100 mls @ 100 mls/hr IVPB Q6 [facility]; Protocol Last Admin: 03/12/18 17:24 Dose: 100 mls/hr Vancomycin HCl 1 gm/ Sodium (Chloride) 250 mls @ 250 mls/hr IVPB Q12H [facility]; Protocol Last Admin: 03/12/18 11:48 Dose: 250 mls/hr Ipratropium [place] (Atrovent) 0.5 mg IH RQ6 [facility] Levalbuterol HCl (Xopenex) 1.25 mg INH RQ6 [facility] Magnesium Hydroxide (Milk Of Magnesia) 30 ml PO DAILY PRN PRN Reason: No bowel movement x 3 days Magnesium Oxide (Mag-Ox) 400 mg PO DAILY [facility] Last Admin: 03/12/18 09:53 Dose: 400 mg Methimazole (Tapazole) 5 mg PO DAILY [facility] Last Admin: 03/12/18 09:54 Dose: 5 mg Methylprednisolone (Solu-Medrol) 30 mg IVP Q12H [facility] Last Admin: 03/12/18 14:17 Dose: 30 mg Mupirocin (Bactroban Ointment) 1 applic TOP DAILY [facility] Last Admin: 03/12/18 09:52 Dose: 1 applic Nitroglycerin (Nitrostat Sl Tab) 0.4 mg SL Q5MIN PRN PRN Reason: chest pain - Labs Labs: 03/12/18 05:30 03/12/18 05:30 PT 12.3 Seconds (9.8-13.1) 03/10/18 14:00 INR 1.1 03/10/18 14:00 APTT 23.3 Seconds (25.6-37.1) L 03/10/18 14:00 Attending/Attestation - Attestation I have personally seen and examined this patient.: Yes I have fully participated in the care of the patient.: Yes I have reviewed all pertinent clinical information, including history, physical exam and plan: Yes Notes (Text): Sinus Tachycardia - will change Albuterol to Xopenex - check TSH - Increase Xanax 0.25 mg q12 prn
[2018-03-12] MEDS ORDERED: Levalbuterol 1.25 MG/3 ML Inhal Soln UD INH SCH (17:15)
[2018-03-12] MEDS: Ipratropium 0.02% Inhal Soln (0.5 mg/2.5 ml) UD IH SCH (19:09)
[2018-03-12] MEDS: Levalbuterol 1.25 MG/3 ML Inhal Soln UD INH SCH (19:09)
[2018-03-13] MEDS: Ipratropium 0.02% Inhal Soln (0.5 mg/2.5 ml) UD IH SCH (01:25)
[2018-03-13] MEDS: Levalbuterol 1.25 MG/3 ML Inhal Soln UD INH SCH (01:26)
[2018-03-13] MEDS: Piperacillin/Tazobact 3.375 GM in Sodium Chloride 0.9% 100 ML IVPB SCH ×2 (03:30→09:11)
[2018-03-13] MEDS: MethylPREDNISolone 40 mg Vial IVP SCH (03:31)
[2018-03-13 05:49] LABS: HEMOGLOBIN 9.2 g/dL (12.0-16.0); MEAN CELL VOLUME 88.8 fl (81.0-99.0); MEAN CORPUSCULAR HEMOGLOBIN 25.9 pg (27.0-31.0); MEAN CORPUSCULAR HGB CONC 29.2 g/dL (33.0-37.0); RBC 3.56 Mil/uL (3.80-5.20); RED CELL DISTRIBUTION WIDTH 25.4 % (11.5-14.5); WHITE BLOOD COUNT 10.5 K/uL (4.8-10.8)
[2018-03-13 06:24] LABS: ALB/GLOB RATIO 0.8 (1.0-2.1); ALBUMIN 2.2 g/dL (3.5-5.0); ALT/SGPT 59 U/L (9-52); AST/SGOT 70 U/L (14-36); BLOOD UREA NITROGEN 12 mg/dl (7-17); CALCIUM 7.1 mg/dL (8.4-10.2); GFR NON-AFRICAN AMERICAN 55
[2018-03-13 08:21] LABS: SQUAMOUS EPITHIAL 2 /hpf (0-5); URINE BACTERIA RARE (<OCC); URINE BILIRUBIN NEGATIVE (NEGATIVE); URINE BLOOD SMALL (NEGATIVE); URINE CLARITY SLIGHTY-CLOUDY (Clear); URINE COLOR YELLOW (YELLOW); URINE GLUCOSE (UA) NEG (Normal); URINE LEUKOCYTE ESTERASE TRACE Leu/uL (Negative); URINE PROTEIN NEGATIVE (NEGATIVE); URINE UROBILINOGEN 0.2-1.0 mg/dL (0.2-1.0)
[2018-03-13] MEDS: methIMAzole 5 MG TAB PO SCH (08:35)
[2018-03-13] MEDS: Enoxaparin 40 mg Syringe SC SCH (08:35)
[2018-03-13] MEDS: Magnesium Oxide 400 mg Tab UD PO SCH (08:36)
--- NOTE | 2018-03-13 08:47 | CP.PCM.PN ---
Subjective - Date & Time of Evaluation Date of Evaluation: 03/13/18 Time of Evaluation: 08:47 - Subjective Subjective: Patient seen and evaluated at bedside. Patient is resting comfortably in bed and in NAD. No acute events overnight, afebrile. Reports she didn't sleep well, however cannot attribute it to anything in particular. No new complaints or con cerns. Denies N/V/F/CP/SOB/chills. Objective - Vital Signs/Intake and Output Vital Signs (last 24 hours): Temp Pulse Resp BP Pulse Ox 97.4 F L 90 18 128/75 100 03/13/18 08:34 03/13/18 08:34 03/13/18 08:34 03/13/18 08:34 03/13/18 08:34 - Medications Medications: Current Medications Acetaminophen (Tylenol 325mg Tab) 650 mg PO Q4 PRN PRN Reason: Pain, Mild (1-3) Acetazolamide (Diamox 250 Mg Tab) 250 mg PO DAILY [facility] Acetylcysteine (Acetylcysteine 20%) 2 ml INH RBID [facility] Last Admin: 03/12/18 19:09 Dose: 2 ml Al Hydrox/Mg Hydrox/Simethicone (Maalox Plus 30 Ml) 30 ml PO Q4 PRN PRN Reason: heartburn/indigestion Albuterol Sulfate (Albuterol 0.083% Inhal Aby (2.5 Mg/3 Ml) Ud) 2.5 mg INH RQ4 PRN PRN Reason: Shortness of Breath Last Admin: 03/11/18 01:01 Dose: 2.5 mg Alprazolam (Xanax) 0.25 mg PO Q12 [facility] Stop: 03/19/18 09:29 Last Admin: 03/13/18 08:38 Dose: 0.25 mg Anastrozole (Arimidex 1 Mg Tab) 1 mg PO DAILY [facility] Last Admin: 03/13/18 08:37 Dose: 1 mg Aspirin (Aspirin Chewable) 81 mg PO DAILY [facility] Last Admin: 03/13/18 08:36 Dose: 81 mg Atorvastatin Calcium (Lipitor) 40 mg PO HS [facility] Last Admin: 03/12/18 22:07 Dose: 40 mg Cyclobenzaprine HCl (Flexeril) 5 mg PO TID [facility] Last Admin: 03/11/18 14:51 Dose: Not Given Enoxaparin Sodium (Lovenox) 40 mg SC DAILY [facility]; Protocol Last Admin: 03/13/18 08:35 Dose: 40 mg Epoetin Dhaval (Procrit) 10,000 unit SC F [facility] Furosemide (Lasix) 40 mg PO DAILY [facility] Gabapentin (Neurontin) 600 mg PO Q8 [facility] Last Admin: 03/13/18 08:36 Dose: 600 mg Piperacillin Sod/Tazobactam (Sod 3.375 gm/ Sodium Chloride) 100 mls @ 100 mls/hr IVPB Q6 [facility]; Protocol Last Admin: 03/13/18 03:30 Dose: 100 mls/hr Vancomycin HCl 1 gm/ Sodium (Chloride) 250 mls @ 250 mls/hr IVPB Q12H [facility]; Protocol Last Admin: 03/13/18 08:34 Dose: Not Given Ipratropium [place] (Atrovent) 0.5 mg IH RQ6 [facility] Last Admin: 03/13/18 01:25 Dose: 0.5 mg Levalbuterol HCl (Xopenex) 1.25 mg INH RQ6 [facility] Last Admin: 03/13/18 01:26 Dose: 1.25 mg Magnesium Hydroxide (Milk Of Magnesia) 30 ml PO DAILY PRN PRN Reason: No bowel movement x 3 days Magnesium Oxide (Mag-Ox) 400 mg PO DAILY [facility] Last Admin: 03/13/18 08:36 Dose: 400 mg Methimazole (Tapazole) 5 mg PO DAILY [facility] Last Admin: 03/13/18 08:35 Dose: 5 mg Methylprednisolone (Solu-Medrol) 30 mg IVP Q12H [facility] Last Admin: 03/13/18 03:31 Dose: 30 mg Mupirocin (Bactroban Ointment) 1 applic TOP DAILY [facility] Last Admin: 03/13/18 08:36 Dose: 1 applic Nitroglycerin (Nitrostat Sl Tab) 0.4 mg SL Q5MIN PRN PRN Reason: chest pain - Labs Labs: 03/13/18 05:05 03/13/18 05:05 PT 12.3 Seconds (9.8-13.1) 03/10/18 14:00 INR 1.1 03/10/18 14:00 APTT 23.3 Seconds (25.6-37.1) L 03/10/18 14:00 - Constitutional Appears: Non-toxic, No Acute Distress - Neck Exam Neck Exam: absent: Lymphadenopathy Additional comments: R internal jugular triple lumen catheter, intact - Respiratory Exam Respiratory Exam: Clear to Ausculation Bilateral. absent: Wheezes - GI/Abdominal Exam GI & Abdominal Exam: Soft, Normal Bowel Sounds - Extremities Exam Extremities Exam: absent: Calf Tenderness, Pedal Edema Additional comments: Right upper extremity lymphadema - Neurological Exam Neurological Exam: Alert, Awake - Psychiatric Exam Psychiatric exam: Normal Affect, Normal Mood - Skin Skin Exam: Intact Assessment and Plan - Assessment and Plan (Free Text) Assessment: 67 yo female patient, with PMHx of COPD, sys/leigh CHF, HTN, hyperthyroidism, hx breast CA and multiple other co-morbidities, admitted for COPD exacerbation secondary to RLL Pneumonia and suspected CHF exacerbation. Plan: 1) Right Lower Lobe Pneumonia -afebrile -leukocytosis resolved -pulmonology on board -preliminary blood cx: negative, No growth after 48 hours -Hold Vanco 1gm IV Q6H Day #4, trough 39.3 -c/w Zosyn 3.375gm IV Q6H Day #4 -d/c on Omnice[employer] for 10 days 2) Leukocytosis -resolved 3) COPD -CXR: new RLL infiltrate -cont O2 via NC, maintain POX ~92% -c/w Xopenex, atrovent and methylpredisone 40mg Q12 -Pulmonary consult; Dr. Benz -procalcitonin: pending 4) Acute on Chronic CHF exacerbation with Systolic/Diastolic Dysfunction -Echo 11/2017: EF 60-65% -NT-P-BNP: 9870 (elevated compared to prior) -c/w lasix 40mg PO BID, Acetazolamide -monitor BP -monitor I/Os and daily weights 5) Hyperkalemia -resolved 6) Transaminemia -chronic as per PMD -monitor 7) Normocytic anemia -chronic, stable -c/w with home EPO -monitor 8) Hyperthyroidism -chronic, controlled -c/w home meds 9) Hx of Breast Cancer -chronic -c/w home meds 10) DVT PPx -Lovenox 40 SC QD 11) Foreign Bodies: -Right internal jugular triple lumen catheter 12) Code Status: -DNR/DNI
[2018-03-13] MEDS ORDERED: Epoetin Alfa 20000 UNIT/ML (RENAL DOSE) SC SCH (09:00)
--- NOTE | 2018-03-13 10:54 | CP.PCM.PN ---
Subjective - Date & Time of Evaluation Date of Evaluation: 03/13/18 Time of Evaluation: 10:19 - Subjective Subjective: Seen on rounds in telemetry. Appears comfortable at rest. Vital signs have been stable, she is afebrile. Her cough and sputum have subsided, oxygenation is low normal while on nasal canula @ 2 LPM. During the exam there was a rhythmic movement of her chest which was unexplainable. She was awake and calm during this time, only mildly tachycardic, but the rhythm appeared to remain regular. Neck is supple and trachea midline. No dullness on percussion of the anterior chest wall. Breath sounds remain very diminished bilaterally. Scattered dry rales and sonorous rhonchi bilaterally. No audible wheezing or bronchial breath sounds. Heart sounds are distant, tachy, regular. Improved COPD exacerbation/pneumonia. May be discharged back to [facility] on antibiotic therapy. Minimize use of beta adrenergic medications since these may be responsible for the chest discomfort. Hyperthyroidism is well managed with methimazole 5MG once daily. Objective - Vital Signs/Intake and Output Vital Signs (last 24 hours): Temp Pulse Resp BP Pulse Ox 97.4 F L 90 18 128/75 100 03/13/18 08:34 03/13/18 08:34 03/13/18 08:34 03/13/18 08:34 03/13/18 08:34 - Medications Medications: Current Medications Acetaminophen (Tylenol 325mg Tab) 650 mg PO Q4 PRN PRN Reason: Pain, Mild (1-3) Acetazolamide (Diamox 250 Mg Tab) 250 mg PO DAILY [facility] Acetylcysteine (Acetylcysteine 20%) 2 ml INH RBID [facility] Last Admin: 03/12/18 19:09 Dose: 2 ml Al Hydrox/Mg Hydrox/Simethicone (Maalox Plus 30 Ml) 30 ml PO Q4 PRN PRN Reason: heartburn/indigestion Albuterol Sulfate (Albuterol 0.083% Inhal Aby (2.5 Mg/3 Ml) Ud) 2.5 mg INH RQ4 PRN PRN Reason: Shortness of Breath Last Admin: 03/11/18 01:01 Dose: 2.5 mg Alprazolam (Xanax) 0.25 mg PO Q12 [facility] Stop: 03/19/18 09:29 Last Admin: 03/13/18 08:38 Dose: 0.25 mg Anastrozole (Arimidex 1 Mg Tab) 1 mg PO DAILY [facility] Last Admin: 03/13/18 08:37 Dose: 1 mg Aspirin (Aspirin Chewable) 81 mg PO DAILY [facility] Last Admin: 03/13/18 08:36 Dose: 81 mg Atorvastatin Calcium (Lipitor) 40 mg PO HS [facility] Last Admin: 03/12/18 22:07 Dose: 40 mg Cyclobenzaprine HCl (Flexeril) 5 mg PO TID [facility] Last Admin: 03/11/18 14:51 Dose: Not Given Enoxaparin Sodium (Lovenox) 40 mg SC DAILY [facility]; Protocol Last Admin: 03/13/18 08:35 Dose: 40 mg Epoetin Dhaval (Procrit) 10,000 unit SC MWF [facility] Furosemide (Lasix) 40 mg PO DAILY [facility] Gabapentin (Neurontin) 600 mg PO Q8 [facility] Last Admin: 03/13/18 08:36 Dose: 600 mg Piperacillin Sod/Tazobactam (Sod 3.375 gm/ Sodium Chloride) 100 mls @ 100 mls/hr IVPB Q6 [facility]; Protocol Last Admin: 03/13/18 09:11 Dose: 100 mls/hr Vancomycin HCl 1 gm/ Sodium (Chloride) 250 mls @ 250 mls/hr IVPB Q12H [facility]; Protocol Last Admin: 03/13/18 08:34 Dose: Not Given Ipratropium [place] (Atrovent) 0.5 mg IH RQ6 [facility] Last Admin: 03/13/18 01:25 Dose: 0.5 mg Levalbuterol HCl (Xopenex) 1.25 mg INH RQ6 [facility] Last Admin: 03/13/18 01:26 Dose: 1.25 mg Magnesium Hydroxide (Milk Of Magnesia) 30 ml PO DAILY PRN PRN Reason: No bowel movement x 3 days Magnesium Oxide (Mag-Ox) 400 mg PO DAILY [facility] Last Admin: 03/13/18 08:36 Dose: 400 mg Methimazole (Tapazole) 5 mg PO DAILY [facility] Last Admin: 03/13/18 08:35 Dose: 5 mg Methylprednisolone (Solu-Medrol) 30 mg IVP Q12H [facility] Last Admin: 03/13/18 03:31 Dose: 30 mg Mupirocin (Bactroban Ointment) 1 applic TOP DAILY [facility] Last Admin: 03/13/18 08:36 Dose: 1 applic Nitroglycerin (Nitrostat Sl Tab) 0.4 mg SL Q5MIN PRN PRN Reason: chest pain - Labs Labs: 03/13/18 05:05 03/13/18 05:05 PT 12.3 Seconds (9.8-13.1) 03/10/18 14:00 INR 1.1 03/10/18 14:00 APTT 23.3 Seconds (25.6-37.1) L 03/10/18 14:00 Assessment and Plan (1) Pneumonia Status: Acute (2) Moderate COPD (chronic obstructive pulmonary disease) Status: Chronic (3) Chronic hypercapnic respiratory failure Status: Chronic (4) Lymphedema of arm Status: Chronic
--- NOTE | 2018-03-13 11:56 | CP.PCM.DIS ---
<SivakumarNeeru - Last Filed: 03/13/18 13:25> Provider - Provider Date of Admission: 03/10/18 17:45 Attending physician: Darren Olsen MD Time Spent in preparation of Discharge (in minutes): 30 Diagnosis - Discharge Diagnosis (1) Pneumonia Status: Acute Priority: High Hospital Course - Lab Results Lab Results: Micro Results 03/10/18 14:23 Blood Blood Culture - Preliminary NO GROWTH AFTER 48 HOURS 03/10/18 14:02 Blood Blood Culture - Preliminary NO GROWTH AFTER 48 HOURS Most Recent Lab Values WBC 10.5 K/uL (4.8-10.8) 03/13/18 05:05 RBC 3.56 Mil/uL (3.80-5.20) L 03/13/18 05:05 Hgb 9.2 g/dL (12.0-16.0) L 03/13/18 05:05 Hct 31.6 % (34.0-47.0) L 03/13/18 05:05 MCV 88.8 fl (81.0-99.0) 03/13/18 05:05 MCH 25.9 pg (27.0-31.0) L 03/13/18 05:05 MCHC 29.2 g/dL (33.0-37.0) L 03/13/18 05:05 RDW 25.4 % (11.5-14.5) H 03/13/18 05:05 Plt Count 413 K/uL (130-400) H 03/13/18 05:05 MPV 7.2 fl (7.2-11.7) 03/12/18 05:30 Neut % (Auto) 94.0 % (50.0-75.0) H 03/12/18 05:30 Lymph % (Auto) 2.2 % (20.0-40.0) L 03/12/18 05:30 [place] % (Auto) 3.6 % (0.0-10.0) 03/12/18 05:30 Eos % (Auto) 0.0 % (0.0-4.0) 03/12/18 05:30 Baso % (Auto) 0.2 % (0.0-2.0) 03/12/18 05:30 Neut # (Auto) 9.4 K/uL (1.8-7.0) H 03/12/18 05:30 Lymph # (Auto) 0.2 K/uL (1.0-4.3) L 03/12/18 05:30 [place] # (Auto) 0.4 K/uL (0.0-0.8) 03/12/18 05:30 Eos # (Auto) 0.0 K/uL (0.0-0.7) 03/12/18 05:30 Baso # (Auto) 0.0 K/uL (0.0-0.2) 03/12/18 05:30 Neutrophils % (Manual) 93 % (42-75) H 03/12/18 05:30 Lymphocytes % (Manual) 4 % (20-50) L 03/12/18 05:30 Monocytes % (Manual) 3 % (0-10) 03/12/18 05:30 Platelet Estimate Normal (NORMAL) 03/12/18 05:30 Large Platelets Present 03/12/18 05:30 Hypochromasia (manual) Moderate 03/12/18 05:30 Poikilocytosis (manual Slight 03/12/18 05:30 Anisocytosis (manual) Slight 03/12/18 05:30 Microcytosis (manual) Slight 03/10/18 14:00 Macrocytosis (manual) Slight 03/11/18 06:09 Spherocytes Slight 03/10/18 14:00 Tear Drop Cells Slight 03/12/18 05:30 Ovalocytes Slight 03/12/18 05:30 PT 12.3 Seconds (9.8-13.1) 03/10/18 14:00 INR 1.1 03/10/18 14:00 APTT 23.3 Seconds (25.6-37.1) L 03/10/18 14:00 pCO2 38 mm/Hg (35-45) 03/10/18 13:42 pO2 65 mm/Hg (80-100) L 03/10/18 13:42 HCO3 23.0 mmol/L (21-28) 03/10/18 13:42 ABG pH 7.38 (7.35-7.45) 03/10/18 13:42 ABG Total CO2 23.7 mmol/L (22-28) 03/10/18 13:42 ABG O2 Saturation 96.5 % (95-98) 03/10/18 13:42 ABG Base Excess -2.3 mmol/L (-2.0-3.0) L 03/10/18 13:42 Tawanda Test Yes 03/10/18 13:42 ABG Potassium 6.2 mmol/L (3.6-5.2) H* 03/10/18 13:42 A-a O2 Difference 173.0 mm/Hg 03/10/18 13:42 Sodium 133.0 mmol/L (132-148) 03/10/18 13:42 Chloride 108.0 mmol/L (98-107) H 03/10/18 13:42 Glucose 122 mg/dL (65-105) H 03/10/18 13:42 Lactate 1.1 mmol/L (0.7-2.1) 03/10/18 13:42 FiO2 40.0 % 03/10/18 13:42 Pressure Support 5 03/10/18 13:42 Inspiratory BiPAP 10 03/10/18 13:42 Crit Value Called To Dr bri tellez 03/10/18 13:42 Crit Value Called By 15 03/10/18 13:42 Crit Value Read Back Y 03/10/18 13:42 Blood Gas Notified Time 1502 03/10/18 13:42 Sodium 139 mmol/l (132-148) 03/13/18 05:05 Potassium 3.9 MMOL/L (3.6-5.0) 03/13/18 05:05 Chloride 112 mmol/L (98-107) H 03/13/18 05:05 Carbon Dioxide 23 mmol/L (22-30) 03/13/18 05:05 Anion Gap 8 (10-20) L 03/13/18 05:05 BUN 12 mg/dl (7-17) 03/13/18 05:05 Creatinine 1.0 mg/dl (0.7-1.2) 03/13/18 05:05 Est GFR ( Amer) > 60 03/13/18 05:05 Est GFR (Non-Af Amer) 55 03/13/18 05:05 POC Glucose (mg/dL) 126 mg/dL (65-110) H 03/13/18 05:38 Random Glucose 116 mg/dL (65-105) H 03/13/18 05:05 Calcium 7.1 mg/dL (8.4-10.2) L 03/13/18 05:05 Phosphorus 2.3 mg/dl (2.5-4.5) L 03/10/18 16:56 Magnesium 1.9 MG/DL (1.6-2.3) 03/10/18 16:56 Total Bilirubin 0.3 mg/dl (0.2-1.3) 03/13/18 05:05 AST 70 U/L (14-36) H 03/13/18 05:05 ALT 59 U/L (9-52) H 03/13/18 05:05 Alkaline Phosphatase 166 U/L (38-126) H 03/13/18 05:05 Troponin I < 0.0120 ng/mL (0.00-0.120) 03/11/18 06:09 NT-Pro-B Natriuret Pep 9820 pg/ml (0-900) H 03/10/18 16:56 Total Protein 5.0 G/DL (6.3-8.2) L 03/13/18 05:05 Albumin 2.2 g/dL (3.5-5.0) L 03/13/18 05:05 Globulin 2.8 gm/dL (2.2-3.9) 03/13/18 05:05 Albumin/Globulin Ratio 0.8 (1.0-2.1) L 03/13/18 05:05 TSH 3rd Generation 0.32 mIU/ML (0.46-4.68) L 03/13/18 05:05 Arterial Blood Potassium 6.2 mmol/L (3.6-5.2) H* 03/10/18 13:42 Urine Color Yellow (YELLOW) 03/13/18 05:55 Urine Clarity Slighty-cloudy (Clear) 03/13/18 05:55 Urine pH 5.0 (5.0-8.0) 03/13/18 05:55 Ur Specific Mullin 1.017 (1.003-1.030) 03/13/18 05:55 Urine Protein Negative mg/dL (NEGATIVE) 03/13/18 05:55 Urine Glucose (UA) Neg mg/dL (Normal) 03/13/18 05:55 Urine Ketones Negative mg/dL (NEGATIVE) 03/13/18 05:55 Urine Blood Small (NEGATIVE) 03/13/18 05:55 Urine Nitrate Negative (NEGATIVE) 03/13/18 05:55 Urine Bilirubin Negative (NEGATIVE) 03/13/18 05:55 Urine Urobilinogen 0.2-1.0 mg/dL (0.2-1.0) 03/13/18 05:55 Ur Leukocyte Esterase Trace Ben/uL (Negative) 03/13/18 05:55 Urine RBC (Auto) 1 /hpf (0-3) 03/13/18 05:55 Urine Microscopic WBC 6 /hpf (0-5) H 03/13/18 05:55 Ur Squamous Epith Cells 2 /hpf (0-5) 03/13/18 05:55 Ur Transition Epith Cell 1 /hpf (0-3) 03/13/18 05:55 Urine Bacteria Rare (<OCC) 03/13/18 05:55 Vancomycin Trough 39.3 ug/mL (5.0-10.0) H 03/13/18 05:05 - Hospital Course Hospital Course: 67 yo female patient, with PMHx of COPD, sys/leigh CHF, HTN, hyperthyroidism, hx breast CA and multiple other co-morbidities, was admitted for COPD exacerbation secondary to RLL Pneumonia Plan: 1) Right Lower Lobe Pneumonia -afebrile -leukocytosis resolved -pulmonology on board -preliminary blood cx: negative, No growth after 48 hours -Hold Vanco 1gm IV Q6H Day #4, trough 39.3 -c/w Zosyn 3.375gm IV Q6H Day #4 -d/c on Omnicef for 10 days 2) Leukocytosis -resolved 3) COPD -CXR: new RLL infiltrate -cont O2 via NC, maintain POX ~92% -c/w Xopenex, atrovent and methylpredisone 40mg Q12 -Pulmonary consult; Dr. Benz -procalcitonin: pending Patient was found to have a new RLL pneuomonia with leukocytosis on presentation. Patient was started on IV Vanco and Zosyn, leukocytosis resolved, respiratory symptoms resolved. Patient was discharged on Omnicef for 10 days and tolerated treatment well. After an uneventful hospital stay, the patient was discharged back to her rehab facility. There were no acute changes to her prescribed medical regiment. Discharge Exam - Head Exam Head Exam: ATRAUMATIC, NORMAL INSPECTION, NORMOCEPHALIC - Eye Exam Pupil Exam: NORMAL ACCOMODATION - Respiratory Exam Respiratory Exam: NORMAL BREATHING PATTERN. absent: Wheezes - Cardiovascular Exam Cardiovascular Exam: REGULAR RHYTHM - GI/Abdominal Exam GI & Abdominal Exam: Normal Bowel Sounds - Neurological Exam Neurological exam: Alert, Oriented x3 - Psychiatric Exam Psychiatric exam: Normal Affect, Normal Mood Discharge Plan - Discharge Medications Prescriptions: Cefdinir [Omnicef] 300 mg PO Q12H #20 cap - Follow Up Plan Condition: FAIR Disposition: REHAB FACILITY/REHAB UNIT Additional Instructions: continue with antibiotics as prescribed continue with current home medications follow up with your primary medical doctor within 1 week any worsening of symptoms return to ED for further evaluation Referrals: Bala Benz MD [Family Provider] - <Josefa Pimentel - Last Filed: 03/13/18 15:47> Provider - Provider Date of Admission: 03/10/18 17:45 Attending physician: Darren Olsen MD Hospital Course - Lab Results Lab Results: Micro Results 03/10/18 14:23 Blood Blood Culture - Preliminary NO GROWTH AFTER 3 DAYS 03/10/18 14:02 Blood Blood Culture - Preliminary NO GROWTH AFTER 3 DAYS Most Recent Lab Values WBC 10.5 K/uL (4.8-10.8) 03/13/18 05:05 RBC 3.56 Mil/uL (3.80-5.20) L 03/13/18 05:05 Hgb 9.2 g/dL (12.0-16.0) L 03/13/18 05:05 Hct 31.6 % (34.0-47.0) L 03/13/18 05:05 MCV 88.8 fl (81.0-99.0) 03/13/18 05:05 MCH 25.9 pg (27.0-31.0) L 03/13/18 05:05 MCHC 29.2 g/dL (33.0-37.0) L 03/13/18 05:05 RDW 25.4 % (11.5-14.5) H 03/13/18 05:05 Plt Count 413 K/uL (130-400) H 03/13/18 05:05 MPV 7.2 fl (7.2-11.7) 03/12/18 05:30 Neut % (Auto) 94.0 % (50.0-75.0) H 03/12/18 05:30 Lymph % (Auto) 2.2 % (20.0-40.0) L 03/12/18 05:30 [place] % (Auto) 3.6 % (0.0-10.0) 03/12/18 05:30 Eos % (Auto) 0.0 % (0.0-4.0) 03/12/18 05:30 Baso % (Auto) 0.2 % (0.0-2.0) 03/12/18 05:30 Neut # (Auto) 9.4 K/uL (1.8-7.0) H 03/12/18 05:30 Lymph # (Auto) 0.2 K/uL (1.0-4.3) L 03/12/18 05:30 [place] # (Auto) 0.4 K/uL (0.0-0.8) 03/12/18 05:30 Eos # (Auto) 0.0 K/uL (0.0-0.7) 03/12/18 05:30 Baso # (Auto) 0.0 K/uL (0.0-0.2) 03/12/18 05:30 Neutrophils % (Manual) 93 % (42-75) H 03/12/18 05:30 Lymphocytes % (Manual) 4 % (20-50) L 03/12/18 05:30 Monocytes % (Manual) 3 % (0-10) 03/12/18 05:30 Platelet Estimate Normal (NORMAL) 03/12/18 05:30 Large Platelets Present 03/12/18 05:30 Hypochromasia (manual) Moderate 03/12/18 05:30 Poikilocytosis (manual Slight 03/12/18 05:30 Anisocytosis (manual) Slight 03/12/18 05:30 Microcytosis (manual) Slight 03/10/18 14:00 Macrocytosis (manual) Slight 03/11/18 06:09 Spherocytes Slight 03/10/18 14:00 Tear Drop Cells Slight 03/12/18 05:30 Ovalocytes Slight 03/12/18 05:30 PT 12.3 Seconds (9.8-13.1) 03/10/18 14:00 INR 1.1 03/10/18 14:00 APTT 23.3 Seconds (25.6-37.1) L 03/10/18 14:00 pCO2 38 mm/Hg (35-45) 03/10/18 13:42 pO2 65 mm/Hg (80-100) L 03/10/18 13:42 HCO3 23.0 mmol/L (21-28) 03/10/18 13:42 ABG pH 7.38 (7.35-7.45) 03/10/18 13:42 ABG Total CO2 23.7 mmol/L (22-28) 03/10/18 13:42 ABG O2 Saturation 96.5 % (95-98) 03/10/18 13:42 ABG Base Excess -2.3 mmol/L (-2.0-3.0) L 03/10/18 13:42 Tawanda Test Yes 03/10/18 13:42 ABG Potassium 6.2 mmol/L (3.6-5.2) H* 03/10/18 13:42 A-a O2 Difference 173.0 mm/Hg 03/10/18 13:42 Sodium 133.0 mmol/L (132-148) 03/10/18 13:42 Chloride 108.0 mmol/L (98-107) H 03/10/18 13:42 Glucose 122 mg/dL (65-105) H 03/10/18 13:42 Lactate 1.1 mmol/L (0.7-2.1) 03/10/18 13:42 FiO2 40.0 % 03/10/18 13:42 Pressure Support 5 03/10/18 13:42 Inspiratory BiPAP 10 03/10/18 13:42 Crit Value Called To Dr bri tellez 03/10/18 13:42 Crit Value Called By 15 03/10/18 13:42 Crit Value Read Back Y 03/10/18 13:42 Blood Gas Notified Time 1502 03/10/18 13:42 Sodium 139 mmol/l (132-148) 03/13/18 05:05 Potassium 3.9 MMOL/L (3.6-5.0) 03/13/18 05:05 Chloride 112 mmol/L (98-107) H 03/13/18 05:05 Carbon Dioxide 23 mmol/L (22-30) 11/05/18 05:05 Anion Gap 8 (10-20) L 03/13/18 05:05 BUN 12 mg/dl (7-17) 03/13/18 05:05 Creatinine 1.0 mg/dl (0.7-1.2) 03/13/18 05:05 Est GFR ( Amer) > 60 03/13/18 05:05 Est GFR (Non-Af Amer) 55 03/13/18 05:05 POC Glucose (mg/dL) 168 mg/dL (65-110) H 03/13/18 12:00 Random Glucose 116 mg/dL (65-105) H 03/13/18 05:05 Calcium 7.1 mg/dL (8.4-10.2) L 03/13/18 05:05 Phosphorus 2.3 mg/dl (2.5-4.5) L 03/10/18 16:56 Magnesium 1.9 MG/DL (1.6-2.3) 03/10/18 16:56 Total Bilirubin 0.3 mg/dl (0.2-1.3) 03/13/18 05:05 AST 70 U/L (14-36) H 03/13/18 05:05 ALT 59 U/L (9-52) H 03/13/18 05:05 Alkaline Phosphatase 166 U/L (38-126) H 03/13/18 05:05 Troponin I < 0.0120 ng/mL (0.00-0.120) 03/11/18 06:09 NT-Pro-B Natriuret Pep 9820 pg/ml (0-900) H 03/10/18 16:56 Total Protein 5.0 G/DL (6.3-8.2) L 03/13/18 05:05 Albumin 2.2 g/dL (3.5-5.0) L 03/13/18 05:05 Globulin 2.8 gm/dL (2.2-3.9) 03/13/18 05:05 Albumin/Globulin Ratio 0.8 (1.0-2.1) L 03/13/18 05:05 TSH 3rd Generation 0.32 mIU/ML (0.46-4.68) L 03/13/18 05:05 Arterial Blood Potassium 6.2 mmol/L (3.6-5.2) H* 03/10/18 13:42 Urine Color Yellow (YELLOW) 03/13/18 05:55 Urine Clarity Slighty-cloudy (Clear) 03/13/18 05:55 Urine pH 5.0 (5.0-8.0) 03/13/18 05:55 Ur Specific [place] 1.017 (1.003-1.030) 03/13/18 05:55 Urine Protein Negative mg/dL (NEGATIVE) 03/13/18 05:55 Urine Glucose (UA) Neg mg/dL (Normal) 03/13/18 05:55 Urine Ketones Negative mg/dL (NEGATIVE) 03/13/18 05:55 Urine Blood Small (NEGATIVE) 03/13/18 05:55 Urine Nitrate Negative (NEGATIVE) 03/13/18 05:55 Urine Bilirubin Negative (NEGATIVE) 03/13/18 05:55 Urine Urobilinogen 0.2-1.0 mg/dL (0.2-1.0) 03/13/18 05:55 Ur Leukocyte Esterase Trace Ben/uL (Negative) 03/13/18 05:55 Urine RBC (Auto) 1 /hpf (0-3) 03/13/18 05:55 Urine Microscopic WBC 6 /hpf (0-5) H 03/13/18 05:55 Ur Squamous Epith Cells 2 /hpf (0-5) 03/13/18 05:55 Ur Transition Epith Cell 1 /hpf (0-3) 03/13/18 05:55 Urine Bacteria Rare (<OCC) 03/13/18 05:55 Vancomycin Trough 39.3 ug/mL (5.0-10.0) H 03/13/18 05:05 Attending/Attestation - Attestation I have personally seen and examined this patient.: Yes I have fully participated in the care of the patient.: Yes I have reviewed all pertinent clinical information, including history, physical exam and plan: Yes Notes (Text): 03/13/18 15:44 agree with findings and plan as above. patient stable to be discharge to [facility] and complete a course of PO antibiotics as outpatient.
[2018-03-13 12:23] VITALS: O2SAT 98
[2018-03-13 15:40] VITALS: BP 134/73; PULSE 89; RESP 20; TEMP 98.2
== END 2018-03-13 15:50 | DRG 190 ==
LOC: H.ER 13:16 → H.ERHOLD 17:45 → OBSVTOIN 17:45 → H.TEL 20:24
PROVIDERS: ADMIT Hospitalist; ATTEND Hospitalist
PROC: 05HM33Z Insertion of Infusion Device into Right Internal Jugular Vein, Percutaneous Approach (ICD-10-PCS; principal; 2018-03-10)
PROC: 3E04329 Introduction of Other Anti-infective into Central Vein, Percutaneous Approach (ICD-10-PCS; 2018-03-10)
PROC: 3E0F73Z Introduction of Anti-inflammatory into Respiratory Tract, Via Natural or Artificial Opening (ICD-10-PCS; 2018-03-10)
PROC: 3E0F7GC Introduction of Other Therapeutic Substance into Respiratory Tract, Via Natural or Artificial Opening (ICD-10-PCS; 2018-03-10)
DX: J44.0 Chronic obstructive pulmonary disease with (acute) lower respiratory infection (principal); J18.9 Pneumonia, unspecified organism; I50.43 Acute on chronic combined systolic (congestive) and diastolic (congestive) heart failure; J96.12 Chronic respiratory failure with hypercapnia; E87.5 Hyperkalemia; J44.1 Chronic obstructive pulmonary disease with (acute) exacerbation; I11.0 Hypertensive heart disease with heart failure; D63.8 Anemia in other chronic diseases classified elsewhere; I95.89 Other hypotension; E03.9 Hypothyroidism, unspecified; E05.90 Thyrotoxicosis, unspecified without thyrotoxic crisis or storm; D72.828 Other elevated white blood cell count; M81.0 Age-related osteoporosis without current pathological fracture; I89.0 Lymphedema, not elsewhere classified; G62.9 Polyneuropathy, unspecified; R00.0 Tachycardia, unspecified; F41.9 Anxiety disorder, unspecified; M19.90 Unspecified osteoarthritis, unspecified site; Z66 Do not resuscitate; Z99.81 Dependence on supplemental oxygen; Z87.891 Personal history of nicotine dependence; Z79.52 Long term (current) use of systemic steroids; Z96.611 Presence of right artificial shoulder joint; Z85.3 Personal history of malignant neoplasm of breast; Z87.01 Personal history of pneumonia (recurrent); Z92.21 Personal history of antineoplastic chemotherapy; Z90.13 Acquired absence of bilateral breasts and nipples